=== PATIENT | male | born 1990 | race African-American/Black ===

== ENCOUNTER 2016-03-14 09:38 | Emergency (ER) | payer SELFPAY ==
--- NOTE | 2016-03-14 11:07 | REP ---
LEFT KNEE, FIVE VIEWS: HISTORY: Trauma. There is no acute fracture or dislocation. The joint spaces are normal in appearance. IMPRESSION: There is no acute fracture or dislocation. Signed by Ajit Neal MD 03/14/2016 11:25 A
--- NOTE | 2016-03-14 11:08 | EDDOCDS ---
Nurse's Notes [facility] Name: Cristóbal Alejandra Age: 25 yrs Sex: Male : 1990 Arrival Date: 03/14/2016 Time: 09:38 Bed PR Private MD: NO PRIMARY PHYSICIAN, . Diagnosis: Sprain of other specified parts of left knee-possible medial meniscal injury Presentation: 03/14 09:43 Presenting complaint: Patient states: Im here to get my knee and my wrist checked out. hs1 Injury to knee occurred yesterday while playing basketball patient jumped and landed wrong and he states knee gave out and he fell. Patient has lump on wrist that he says has been there for a week - no redness or warmth noted. Adult Sepsis Screening: The patient does not have new or worsening altered mentation. Patient's respiratory rate is less than 22. Systolic blood pressure is greater than 100. Patient has a qSOFA score of 0- Negative Sepsis Screen. Suicide/Homicide risk assessment- the patient denies having any suicidal and/or homicidal ideations and does not present with any other emotional, behavioral or mental health complaints. Status: Patient is not a career placement services counselor or dependent. Transition of care: patient was not received from another setting of care. 09:43 Acuity: LEON Level 4 hs1 09:43 Method Of Arrival: Walkin/Carried/Asstd hs1 Triage Assessment: 09:45 General: Appears in no apparent distress, Behavior is appropriate for age, cooperative. hs1 Pain: Location: left hand and left leg Pain currently is 7 out of 10 on a pain scale. HIV screening NA for this visit Offered previously. Respiratory: No deficits noted. Musculoskeletal: Range of motion limited in left knee. Historical: - Allergies: no known allergies; - Home Meds: 1. multivitamin Oral tab daily - PMHx: none; - PSHx: Tonsillectomy; Surgery to left chest to remove ''hardened tissue''.; - Social history: Smoking status: Patient uses tobacco products, current some day smoker. No barriers to communication noted, The patient speaks fluent Malian, Speaks appropriately for age. - Family history: Not pertinent. - : The pt / caregiver states he / she is not on anticoagulants. Home medication list is obtained from the patient. - Exposure Risk Screening:: None identified. Screenin:00 Screening information is obtained from the patient. Primary language is Malian. Fall mk4 risk: No risks identified. Assistance ADL's: requires no assistance with activities of daily living. Abuse/DV Screen: The patient / caregiver reports he/she is: not in a situation that causes fear, pain or injury. Nutritional screening: No deficits noted. Advance Directives: Currently, there is no health care proxy. There is no active DNR order. There is no living will. There is no Power of Hourly Shift Manager. Advance directive information has not previously been placed in an [facility] medical record. Further advance directive information is declined. home support is adequate. Assessment: 10:00 General: Appears in no apparent distress. Pain: Complains of pain in left knee and left mk4 hand. Awake, alert, oriented. Skin warm and dry. Moves all extremities. Respirations unlabored. No apparent distress. The patient / caregiver is instructed regarding the plan of care and ED course. Physical assessment to be completed by PA/UDAY. 10:50 Musculoskeletal: Circulation, motion, and sensation intact Capillary refill < 3 seconds mk4 in left fingers toes No deformity noted Swelling absent. Vital Signs: 09:41 BP 143 / 64; Pulse 66; Resp 18; Temp 96.0(O); Pulse Ox 100% on R/A; Weight 95.25 kg el (R); Height 6 ft. 0 in. (182.88 cm) (R); Pain 7/10; 09:41 Body Mass Index 28.48 (95.25 kg, 182.88 cm) [facility] Vitals: 09:41 Log In Time: March 14, 2016 at 09:39. [facility] ED Course: 09:41 Patient visited by Jennifer Mansfield PCA. elp 09:41 NO PRIMARY PHYSICIAN, . is Private Physician. elp 09:41 Patient moved to Waiting elp 09:41 Patient moved to Pre RCE elp 09:42 Patient visited by Jennifer Mansfield PCA. elp 09:45 Triage Initiated hs1 09:46 Patient moved to Triage 3 hs1 09:53 [facility] ar2 09:53 Moni Helton MD is Attending Physician. ar2 09:53 Patient visited by Davion Mohr PA-C. ar2 10:00 Patient has correct armband on for positive identification. mk4 10:08 Patient moved to TR3 [facility] 10:18 [facility] Payment Agreement was scanned into [employer] and attached to record. mm15 10:19 Patient moved to Radiology gg 10:48 Patient visited by Marlene Polanco, LEO. mk4 10:48 Patient moved to PR2 / 26 [facility] 10:50 No IV's were initiated during this patient's visit. No procedures done that require mk4 assistance. 10:52 Junior Taveras is Referral Physician. ar2 11:07 Galindo wrap to left knee. Patient has positive distal pulse, brisk capillary refill, and mk4 positive sensation after application. Order Results: There are currently no results for this order. Outcome: 10:00 The following High Risk Discharge criteria are identified: None. Condition: good mk4 Condition: stable. Discharge instructions given to patient. No special radiology studies were completed. 10:50 Discharge Assessment: patient administered narcotics - no. mk4 10:50 Property sent home with patient. mk4 10:54 Discharge ordered by Provider. ar2 11:07 Patient left the ED. mk4 Signatures: Princess Barksdale, PAN RECLAIM PROCESSOR PAN RECLAIM PROCESSOR [email or web address] Dangelo Castro Davion Mohr PA-C PA-C ar2 Maru Atkins, RN RN hs1 Sasha Rizo mm15 Jennifer Mansfield, PAN RECLAIM PROCESSOR PAN RECLAIM PROCESSOR Marlene Licea, RN RN mk4 MTDD
--- NOTE | 2016-03-14 11:08 | EDDOCDS ---
Physician Documentation [facility] Name: Cristóbal Alejandra Age: 25 yrs Sex: Male : 1990 Arrival Date: 03/14/2016 Time: 09:38 Bed PR Private MD: NO PRIMARY PHYSICIAN, . Disposition: 03/14/16 10:54 Discharged to Home/Self Care. Impression: Sprain of other specified parts of left knee - possible medial meniscal injury. - Condition is Stable. - Discharge Instructions: Elastic Bandage and RICE, Knee Sprain. - Prescriptions for Naprosyn 500 mg Oral Tablet - take 1 tablet by ORAL route 2 times per day take with food; 30 tablet. - Medication Reconciliation, Local Pharmacy Hours form. - Follow up: Junior Taveras; When: Call to arrange an appointment; Reason: Further diagnostic work-up, Recheck today's complaints. - Problem is new. - Symptoms are unchanged. - Notes: call for follow up appointment Historical: - Allergies: no known allergies; - Home Meds: 1. multivitamin Oral tab daily - PMHx: none; - PSHx: Tonsillectomy; Surgery to left chest to remove ''hardened tissue''.; - Social history: Smoking status: Patient uses tobacco products, current some day smoker. No barriers to communication noted, The patient speaks fluent Cape Verdean, Speaks appropriately for age. - Family history: Not pertinent. - : The pt / caregiver states he / she is not on anticoagulants. Home medication list is obtained from the patient. - Exposure Risk Screening:: None identified. Vital Signs: 03/14 09:41 BP 143 / 64; Pulse 66; Resp 18; Temp 96.0(O); Pulse Ox 100% on R/A; Weight 95.25 kg / elp 209.99 lbs (R); Height 6 ft. 0 in. (182.88 cm) (R); Pain 7/10; 09:41 Body Mass Index 28.48 (95.25 kg, 182.88 cm) elp MDM: 10:00 Galindo Wrap ordered. ar2 10:01 Knee, Complete Ordered. EDMS 10:17 Financial registration complete. mm15 10:18 [facility] Payment Agreement was scanned into [employer] and attached to record. mm15 Signatures: Dispatcher [employer] EDMS Davion Mohr, PA-C PAFadi ar2 Maru Atkins RN RN hs1 Sasha Rizo mm15 Marlene Polanco RN RN mk4 The chart was reviewed and I authenticate all verbal orders and agree with the evaluation and treatment provided.Attachments: 10:18 [facility] Payment Agreement mm15 MTDD
--- NOTE | 2016-03-16 12:08 | EDDOCDS ---
Physician Documentation [facility] Name: Cristóbal Alejandra Age: 25 yrs Sex: Male : 1990 Arrival Date: 03/14/2016 Time: 09:38 Bed PR Private MD: NO PRIMARY PHYSICIAN, . Disposition: 03/14/16 10:54 Discharged to Home/Self Care. Impression: Sprain of other specified parts of left knee - possible medial meniscal injury. - Condition is Stable. - Discharge Instructions: Elastic Bandage and RICE, Knee Sprain. - Prescriptions for Naprosyn 500 mg Oral Tablet - take 1 tablet by ORAL route 2 times per day take with food; 30 tablet. - Medication Reconciliation, Local Pharmacy Hours form. - Follow up: Junior Taveras; When: Call to arrange an appointment; Reason: Further diagnostic work-up, Recheck today's complaints. - Problem is new. - Symptoms are unchanged. - Notes: call for follow up appointment Historical: - Allergies: no known allergies; - Home Meds: 1. multivitamin Oral tab daily - PMHx: none; - PSHx: Tonsillectomy; Surgery to left chest to remove ''hardened tissue''.; - Social history: Smoking status: Patient uses tobacco products, current some day smoker. No barriers to communication noted, The patient speaks fluent Albanian, Speaks appropriately for age. - Family history: Not pertinent. - : The pt / caregiver states he / she is not on anticoagulants. Home medication list is obtained from the patient. - Exposure Risk Screening:: None identified. Vital Signs: 03/14 09:41 BP 143 / 64; Pulse 66; Resp 18; Temp 96.0(O); Pulse Ox 100% on R/A; Weight 95.25 kg / elp 209.99 lbs (R); Height 6 ft. 0 in. (182.88 cm) (R); Pain 7/10; 09:41 Body Mass Index 28.48 (95.25 kg, 182.88 cm) elp MDM: 10:00 Galindo Wrap ordered. ar2 10:01 Knee, Complete Ordered. EDMS 10:17 Financial registration complete. mm15 10:18 [facility] Payment Agreement was scanned into [employer] and attached to record. mm15 15:24 T-Sheet-- Draft Copy was scanned into [employer] and attached to record. gb 15:24 Radiology Report was scanned into [employer] and attached to record. gb Signatures: Dispatcher [employer] EDMS Chey Murray, Reg Reg gb Davion Mohr, MOLLY PAFadi ar2 Maru Atkins RN RN hs1 Sasha Rizo mm15 Marlene Polanco RN RN mk4 The chart was reviewed and I authenticate all verbal orders and agree with the evaluation and treatment provided.Attachments: 10:18 [facility] Payment Agreement mm15 15:24 T-Sheet-- Draft Copy gb Chart Complete MTDD
--- NOTE | 2016-03-16 12:08 | EDDOCDS ---
Physician Documentation [facility] Name: Cristóbal Alejandra Age: 25 yrs Sex: Male : 1990 Arrival Date: 03/14/2016 Time: 09:38 Bed PR Private MD: NO PRIMARY PHYSICIAN, . Disposition: 03/14/16 10:54 Discharged to Home/Self Care. Impression: Sprain of other specified parts of left knee - possible medial meniscal injury. - Condition is Stable. - Discharge Instructions: Elastic Bandage and RICE, Knee Sprain. - Prescriptions for Naprosyn 500 mg Oral Tablet - take 1 tablet by ORAL route 2 times per day take with food; 30 tablet. - Medication Reconciliation, Local Pharmacy Hours form. - Follow up: Junior Taveras; When: Call to arrange an appointment; Reason: Further diagnostic work-up, Recheck today's complaints. - Problem is new. - Symptoms are unchanged. - Notes: call for follow up appointment Historical: - Allergies: no known allergies; - Home Meds: 1. multivitamin Oral tab daily - PMHx: none; - PSHx: Tonsillectomy; Surgery to left chest to remove ''hardened tissue''.; - Social history: Smoking status: Patient uses tobacco products, current some day smoker. No barriers to communication noted, The patient speaks fluent Lebanese, Speaks appropriately for age. - Family history: Not pertinent. - : The pt / caregiver states he / she is not on anticoagulants. Home medication list is obtained from the patient. - Exposure Risk Screening:: None identified. Vital Signs: 03/14 09:41 BP 143 / 64; Pulse 66; Resp 18; Temp 96.0(O); Pulse Ox 100% on R/A; Weight 95.25 kg / elp 209.99 lbs (R); Height 6 ft. 0 in. (182.88 cm) (R); Pain 7/10; 09:41 Body Mass Index 28.48 (95.25 kg, 182.88 cm) elp MDM: 10:00 Galindo Wrap ordered. ar2 10:01 Knee, Complete Ordered. EDMS 10:17 Financial registration complete. mm15 10:18 [facility] Payment Agreement was scanned into [employer] and attached to record. mm15 15:24 T-Sheet-- Draft Copy was scanned into [employer] and attached to record. gb 15:24 Radiology Report was scanned into [employer] and attached to record. gb Signatures: Dispatcher [employer] EDMS Chey Murray, Reg Reg gb Davion Mohr, MOLLY PAFadi ar2 Maru Atkins RN RN hs1 Sasha Rizo mm15 Marlene Polanco RN RN mk4 The chart was reviewed and I authenticate all verbal orders and agree with the evaluation and treatment provided.Attachments: 10:18 [facility] Payment Agreement mm15 15:24 T-Sheet-- Draft Copy gb Chart Complete MTDD
--- NOTE | 2016-03-16 12:08 | EDDOCDS ---
Nurse's Notes [facility] Name: Cristóbal Alejandra Age: 25 yrs Sex: Male : 1990 Arrival Date: 03/14/2016 Time: 09:38 Bed PR Private MD: NO PRIMARY PHYSICIAN, . Diagnosis: Sprain of other specified parts of left knee-possible medial meniscal injury Presentation: 03/14 09:43 Presenting complaint: Patient states: Im here to get my knee and my wrist checked out. hs1 Injury to knee occurred yesterday while playing basketball patient jumped and landed wrong and he states knee gave out and he fell. Patient has lump on wrist that he says has been there for a week - no redness or warmth noted. Adult Sepsis Screening: The patient does not have new or worsening altered mentation. Patient's respiratory rate is less than 22. Systolic blood pressure is greater than 100. Patient has a qSOFA score of 0- Negative Sepsis Screen. Suicide/Homicide risk assessment- the patient denies having any suicidal and/or homicidal ideations and does not present with any other emotional, behavioral or mental health complaints. Status: Patient is not a aircraft servicer or dependent. Transition of care: patient was not received from another setting of care. 09:43 Acuity: LEON Level 4 hs1 09:43 Method Of Arrival: Walkin/Carried/Asstd hs1 Triage Assessment: 09:45 General: Appears in no apparent distress, Behavior is appropriate for age, cooperative. hs1 Pain: Location: left hand and left leg Pain currently is 7 out of 10 on a pain scale. HIV screening NA for this visit Offered previously. Respiratory: No deficits noted. Musculoskeletal: Range of motion limited in left knee. Historical: - Allergies: no known allergies; - Home Meds: 1. multivitamin Oral tab daily - PMHx: none; - PSHx: Tonsillectomy; Surgery to left chest to remove ''hardened tissue''.; - Social history: Smoking status: Patient uses tobacco products, current some day smoker. No barriers to communication noted, The patient speaks fluent Prydeinig, Speaks appropriately for age. - Family history: Not pertinent. - : The pt / caregiver states he / she is not on anticoagulants. Home medication list is obtained from the patient. - Exposure Risk Screening:: None identified. Screenin:00 Screening information is obtained from the patient. Primary language is Prydeinig. Fall mk4 risk: No risks identified. Assistance ADL's: requires no assistance with activities of daily living. Abuse/DV Screen: The patient / caregiver reports he/she is: not in a situation that causes fear, pain or injury. Nutritional screening: No deficits noted. Advance Directives: Currently, there is no health care proxy. There is no active DNR order. There is no living will. There is no Power of Skeins Yarn Examiner. Advance directive information has not previously been placed in an [facility] medical record. Further advance directive information is declined. home support is adequate. Assessment: 10:00 General: Appears in no apparent distress. Pain: Complains of pain in left knee and left mk4 hand. Awake, alert, oriented. Skin warm and dry. Moves all extremities. Respirations unlabored. No apparent distress. The patient / caregiver is instructed regarding the plan of care and ED course. Physical assessment to be completed by PA/UDAY. 10:50 Musculoskeletal: Circulation, motion, and sensation intact Capillary refill < 3 seconds mk4 in left fingers toes No deformity noted Swelling absent. Vital Signs: 09:41 BP 143 / 64; Pulse 66; Resp 18; Temp 96.0(O); Pulse Ox 100% on R/A; Weight 95.25 kg el (R); Height 6 ft. 0 in. (182.88 cm) (R); Pain 7/10; 09:41 Body Mass Index 28.48 (95.25 kg, 182.88 cm) [facility] Vitals: 09:41 Log In Time: March 14, 2016 at 09:39. [facility] ED Course: 09:41 Patient visited by Jennifer Mansfield PCA. elp 09:41 NO PRIMARY PHYSICIAN, . is Private Physician. elp 09:41 Patient moved to Waiting elp 09:41 Patient moved to Pre RCE elp 09:42 Patient visited by Jennifer Mansfield PCA. elp 09:45 Triage Initiated hs1 09:46 Patient moved to Triage 3 hs1 09:53 Davion Mohr [facility]-C [facility] ar2 09:53 Moni Helton MD is Attending Physician. ar2 09:53 Patient visited by Davion Mohr PA-C. ar2 10:00 Patient has correct armband on for positive identification. mk4 10:08 Patient moved to TR3 jam1 10:18 [facility] Payment Agreement was scanned into [employer] and attached to record. mm15 10:19 Patient moved to Radiology gg 10:48 Patient visited by Marlene Polanco, LEO. mk4 10:48 Patient moved to PR2 / 26 jam1 10:50 No IV's were initiated during this patient's visit. No procedures done that require mk4 assistance. 10:52 Junior Taveras is Referral Physician. ar2 11:07 Galindo wrap to left knee. Patient has positive distal pulse, brisk capillary refill, and mk4 positive sensation after application. 11:42 Knee, Complete Returned. EDMS 15:24 T-Sheet-- Draft Copy was scanned into [employer] and attached to record. gb 15:24 Radiology Report was scanned into [employer] and attached to record. gb Order Results: Radiology Order: Knee, Complete Test: Knee, Complete REASON FOR EXAMINATION: trauma, twist, anterior/medial pain; LEFT KNEE, FIVE VIEWS:; ; HISTORY: Trauma.; ; There is no acute fracture or dislocation. The joint spaces are normal in; appearance.; ; IMPRESSION:; ; There is no acute fracture or dislocation.; ; ; Signed by; Ajit Neal MD 03/14/2016 11:25 A; Outcome: 10:00 The following High Risk Discharge criteria are identified: None. Condition: good mk4 Condition: stable. Discharge instructions given to patient. No special radiology studies were completed. 10:50 Discharge Assessment: patient administered narcotics - no. mk4 10:50 Property sent home with patient. mk4 10:54 Discharge ordered by Provider. ar2 11:07 Patient left the ED. mk4 Signatures: Dispatcher [employer] EDMS Princess Barksdale, OXIDATION OPERATOR OXIDATION OPERATOR jam1 Chey Murray, Reg Reg Dangelo Dimas gg Davion Mohr PA-C PA-C ar2 aMru Atkins, RN RN hs1 Sasha Rizo mm15 Jennifer Mansfield, OXIDATION OPERATOR OXIDATION OPERATOR elp Marlene Polanco, RN RN mk4 Chart Complete MTDD
== END 2016-03-14 11:07 | disposition home or self-care (01) ==
LOC: M ED 09:38
DX: S83.92XA Sprain of unspecified site of left knee, initial encounter (principal); W18.39XA Other fall on same level, initial encounter; Y92.39 Other specified sports and athletic area as the place of occurrence of the external cause; Y93.67 Activity, basketball; Y99.8 Other external cause status; F17.210 Nicotine dependence, cigarettes, uncomplicated

== ENCOUNTER 2016-06-12 12:12 | Emergency (ER) | payer SELFPAY ==
[~2016-06-12] VITALS: Ht 185.4 cm; Wt 86.2 kg
[2016-06-12 12:13] VITALS: BP 137/74
== END 2016-06-12 13:27 | disposition home or self-care (01) ==
LOC: M ED 12:47
DX: M54.42 Lumbago with sciatica, left side (principal)

== ENCOUNTER 2016-08-18 11:43 | Emergency (ER) | payer SELFPAY ==
[~2016-08-18] VITALS: Ht 182.9 cm; Wt 90.9 kg
[2016-08-18 11:44] VITALS: BP 138/89
[2016-08-18] MEDS ORDERED: CYCL10TA PO (12:15)
[2016-08-18] MEDS ORDERED: NAPR500T PO (12:15)
== END 2016-08-18 12:26 | disposition home or self-care (01) ==
LOC: M ED 11:43
DX: M54.5 Low back pain (principal); G89.29 Other chronic pain

== ENCOUNTER 2017-01-01 11:15 | Emergency (ER) | payer SELFPAY ==
[~2017-01-01] VITALS: Ht 185.4 cm; Wt 86.4 kg
[~2017-01-01 11:15] MED LIST: CYCL10TA PO; NAPR500T PO
[2017-01-01 11:26] VITALS: BP 129/79
[2017-01-01] MEDS ORDERED: IBUP-1022 PO (11:30)
--- NOTE | 2017-01-01 12:00 | REP ---
Clinical: Trauma. Technique: AP, lateral, bilateral oblique views left hand . Findings: The osseous structures and joint spaces are intact and normal. There is no evidence for acute fracture or dislocation. Surrounding soft tissues are unremarkable. No subcutaneous emphysema or radiodense foreign body. Impression: Normal left hand series. No acute fracture or dislocation. Signed by Austin Maharaj MD 01/01/2017 11:52 A
== END 2017-01-01 12:54 | disposition home or self-care (01) ==
LOC: M ED 11:15
DX: S63.642A Sprain of metacarpophalangeal joint of left thumb, initial encounter (principal); X50.1XXA Overexertion from prolonged static or awkward postures, initial encounter; Y92.830 Public park as the place of occurrence of the external cause; Y93.67 Activity, basketball; Y99.9 Unspecified external cause status

== ENCOUNTER 2017-04-22 13:39 | Emergency (ER) | payer SELFPAY ==
[2017-04-22] MEDS: diphenhydrAMINE 50 MG CAP PO (15:36)
[2017-04-22] MEDS: METOCLOPRAMIDE 10 MG TAB PO (15:36)
[2017-04-22] MEDS: NAPROXEN 250 MG TAB PO (15:37)
[2017-04-22 15:53] LABS: BASO # 0.1 10^3/uL (0.0-0.2); BASO % 0.5 % (0.0-1.0); EOS # 0.1 10^3/uL (0.0-0.50); EOS % 1.3 % (0.0-3.0); HEMATOCRIT 42.5 % (42.0-52.0); HEMOGLOBIN 14.7 g/dl (14.0-18.0); IMMATURE GRANULOCYTE % 0.3 % (0-3.0); LYMPH # 3.3 10^3/uL (1.5-6.5); LYMPH % 32.8 % (24.0-44.0); MEAN CORPUSCULAR HEMOGLOBIN 28.4 pg (27.0-33.0); MEAN CORPUSCULAR HGB CONC 34.6 g/dl (32.0-36.5); MONO # 0.7 10^3/uL (0.0-0.8); MONO % 7.3 % (0.0-5.0); NEUTROPHILS # 5.9 10^3/uL (1.8-7.7); NEUTROPHILS % 57.8 % (36.0-66.0); PLATELET COUNT, AUTOMATED 238 10^3/uL (150-450); RED BLOOD COUNT 5.18 10^6/uL (4.30-6.10); RED CELL DISTRIBUTION WIDTH 13.2 % (11.5-14.5); WHITE BLOOD COUNT 10.1 10^3/uL (4.0-10.0)
[2017-04-22 16:11] LABS: ANION GAP 6 MEQ/L (8-16); BLOOD UREA NITROGEN 13 MG/DL (7-18); C REACTIVE PROTEIN QUANTITATIV < 0.30 MG/DL (0.00-0.30); CARBON DIOXIDE LEVEL 28 MEQ/L (21-32); CHLORIDE LEVEL 104 MEQ/L (98-107); CPK CREATINE PHOSPHOKINASE 209 U/L (39-308); CREATININE FOR GFR 1.18 MG/DL (0.70-1.30); GLOMERULAR FILTRATION RATE > 60.0 (>60); GLUCOSE, FASTING 81 MG/DL (70-100); POTASSIUM SERUM 3.8 MEQ/L (3.5-5.1); SODIUM LEVEL 138 MEQ/L (136-145); TROPONIN I < 0.02 NG/ML (< 0.10)
[2017-04-22 16:12] LABS: ERYTHROCYTE SEDIMENTATION RATE 3 mm/hr (0-15)
[2017-04-22 16:15] LABS: MB/CK RELATIVE INDEX 0.47 (< OR =4)
== END 2017-04-22 16:58 | disposition home or self-care (01) ==
LOC: M ED 13:39
DX: R07.89 Other chest pain (principal); R00.1 Bradycardia, unspecified; Z72.0 Tobacco use
CPT/HCPCS: 71046

== ENCOUNTER 2017-06-03 16:01 | Emergency (ER) | payer SELFPAY ==
[2017-06-03] MEDS: METHOCARBAMOL 750 MG TAB PO (16:25)
[2017-06-03] MEDS: PERCOCET 5MG/325MG TAB PO (16:30)
== END 2017-06-03 17:06 | disposition home or self-care (01) ==
LOC: M ED 16:01
DX: S39.012A Strain of muscle, fascia and tendon of lower back, initial encounter (principal); X50.1XXA Overexertion from prolonged static or awkward postures, initial encounter; Y92.89 Other specified places as the place of occurrence of the external cause
CPT/HCPCS: 99282

== ENCOUNTER 2017-07-23 12:14 | Emergency (ER) | payer SELFPAY ==
[2017-07-23 14:06] LABS: BASO % 0.2 % (0.0-1.0); EOS # 0.1 10^3/uL (0.0-0.50); EOS % 1.5 % (0.0-3.0); HEMATOCRIT 47.1 % (42.0-52.0); HEMOGLOBIN 15.7 g/dl (13.5-17.5); IMMATURE GRANULOCYTE % 0.2 % (0-3.0); LYMPH # 1.1 10^3/uL (1.5-6.5); MEAN CORPUSCULAR HEMOGLOBIN 28.1 pg (27.0-33.0); MEAN CORPUSCULAR HGB CONC 33.3 g/dl (32.0-36.5); MEAN CORPUSCULAR VOLUME 84.3 fl (80.0-96.0); MONO # 0.4 10^3/uL (0.0-0.8); NEUTROPHILS # 7.1 10^3/uL (1.8-7.7); NEUTROPHILS % 81.1 % (36.0-66.0); PLATELET COUNT, AUTOMATED 234 10^3/uL (150-450); RED BLOOD COUNT 5.59 10^6/uL (4.30-6.10); RED CELL DISTRIBUTION WIDTH 13.4 % (11.5-14.5); WHITE BLOOD COUNT 8.8 10^3/uL (4.0-10.0)
[2017-07-23 14:31] LABS: ALBUMIN 3.9 GM/DL (3.2-5.2); ALBUMIN/GLOBULIN RATIO 1.08 (1.00-1.93); ALKALINE PHOSPHATASE 73 U/L (45-117); ALT/SGPT 47 U/L (12-78); ANION GAP 8 MEQ/L (8-16); AST/SGOT 18 U/L (7-37); BILIRUBIN,DIRECT 0.1 MG/DL (0.0-0.2); BILIRUBIN,TOTAL 0.6 MG/DL (0.2-1.0); BLOOD UREA NITROGEN 12 MG/DL (7-18); CALCIUM LEVEL 8.9 MG/DL (8.5-10.1); CARBON DIOXIDE LEVEL 29 MEQ/L (21-32); CHLORIDE LEVEL 102 MEQ/L (98-107); CREATININE FOR GFR 1.19 MG/DL (0.70-1.30); GLOMERULAR FILTRATION RATE > 60.0 (>60); GLUCOSE, FASTING 92 MG/DL (70-100); LIPASE 143 U/L (73-393); POTASSIUM SERUM 4.4 MEQ/L (3.5-5.1); SODIUM LEVEL 139 MEQ/L (136-145); TOTAL PROTEIN 7.5 GM/DL (6.4-8.2)
[2017-07-23] MEDS: ONDANSETRON 4 MG ORAL DISINTEGRATING TAB (Q0162 PER 1MG) PO (14:53)
== END 2017-07-23 15:43 | disposition home or self-care (01) ==
LOC: M ED 12:14
DX: K52.9 Noninfective gastroenteritis and colitis, unspecified (principal)
CPT/HCPCS: Q0162

== ENCOUNTER 2018-01-16 08:52 | Emergency (ER) | payer SELFPAY | END 2018-01-16 09:40 | disposition home or self-care (01) | LOC: M ED 08:52 | DX: M62.838 Other muscle spasm (principal) | CPT/HCPCS: 99282 ==

== ENCOUNTER 2018-01-17 20:36 | Emergency (ER) | payer SELFPAY ==
[2018-01-17] MEDS: NORCO 5/325MG TABLET (BULK FOR ED) PO (21:27)
== END 2018-01-17 22:08 | disposition home or self-care (01) ==
LOC: M ED 20:36
DX: S39.012A Strain of muscle, fascia and tendon of lower back, initial encounter (principal); X58.XXXA Exposure to other specified factors, initial encounter; Y92.099 Unspecified place in other non-institutional residence as the place of occurrence of the external cause; Y93.9 Activity, unspecified; Y99.9 Unspecified external cause status; G89.29 Other chronic pain; M54.9 Dorsalgia, unspecified
CPT/HCPCS: 99282

== ENCOUNTER 2018-04-28 18:54 | Emergency (ER) | payer SELFPAY ==
[~2018-04-28] VITALS: Ht 182.9 cm; Wt 90.0 kg
[~2018-04-28 18:54] MED LIST changes: +IBUP-1022 PO; +IBUP80TA PO; +NAPR-837 PO; +NAPR-885 PO; -NAPR500T PO; +REGL10TA6 PO; +ROBA500T PO; +ZOFR4TAB14 PO
--- NOTE | 2018-04-28 22:11 | REPVR ---
EXAM: US Pelvis Limited, Male EXAM DATE/TIME: 04/28/2018 8:33 PM CLINICAL HISTORY: 27 years old, male; Pain; Pelvic pain; Additional info: ? Inguinal hernia; Left inguinal pain TECHNIQUE: Imaging protocol: Real-time pelvic ultrasound with image documentation. COMPARISON: CR Spine. Lumbosacral, complete 09/29/2015 9:47 AM FINDINGS: Soft tissues: Grossly unremarkable. No inguinal hernia identified. No fluid collection or soft tissue mass. IMPRESSION: No hernia identified. Electronically signed by: Morgan Hansen On 04/28/2018 22:11:15 PM
[2018-04-28 22:15] VITALS: BP 115/70
== END 2018-04-28 22:16 | disposition home or self-care (01) ==
LOC: M ED 18:54
DX: S39.013A Strain of muscle, fascia and tendon of pelvis, initial encounter (principal); X58.XXXA Exposure to other specified factors, initial encounter; Y92.9 Unspecified place or not applicable; Y93.9 Activity, unspecified; Y99.9 Unspecified external cause status

== ENCOUNTER 2018-06-13 18:58 | Emergency (ER) | payer OTHER, SELFPAY ==
[~2018-06-13] VITALS: Ht 185.4 cm; Wt 84.8 kg
[2018-06-13] MEDS ORDERED: FLUORESCEIN OPHTH 1 MG STRIP OS ONE (19:30)
[2018-06-13] MEDS ORDERED: ERYT1OIN26 OS (19:34)
[2018-06-13 19:50] VITALS: BP 115/66
== END 2018-06-13 19:52 | disposition home or self-care (01) ==
LOC: M ED 18:58
DX: H10.212 Acute toxic conjunctivitis, left eye (principal); S05.92XA Unspecified injury of left eye and orbit, initial encounter; X10.2XXA Contact with fats and cooking oils, initial encounter; Y92.89 Other specified places as the place of occurrence of the external cause; Y99.0 Civilian activity done for income or pay; F17.210 Nicotine dependence, cigarettes, uncomplicated

== ENCOUNTER → 2018-08-13 | Outpatient (REF) | payer MEDICAID ==
[~2018-08-13] MED LIST changes: +ERYT1OIN26 OS
[2018-08-13 21:45] LABS: APPEARANCE, URINE CLEAR (CLEAR); BACTERIA, URINE AUTO NEGATIVE (NEGATIVE); BILIRUBIN, URINE AUTO NEGATIVE (NEGATIVE); BLOOD, URINE BLOOD NEGATIVE (NEGATIVE); COLOR, URINE YELLOW (YELLOW); GLUCOSE, URINE (UA) AUTO NEGATIVE (NEGATIVE); KETONE, URINE AUTO NEGATIVE (NEGATIVE); LEUKOCYTE ESTERASE, URINE AUTO NEGATIVE (NEGATIVE); MUCUS, URINE SMALL (NEGATIVE); NITRITE, URINE AUTO NEGATIVE (NEGATIVE); PROTEIN, URINE AUTO NEGATIVE (NEGATIVE); RBC, URINE AUTO 1 /HPF (0-3); SPECIFIC GRAVITY URINE AUTO 1.026 (1.002-1.035); SQUAMOUS EPITHELIAL CELL UR AU 0 /HPF (0-6); UROBILINOGEN, URINE AUTO 0.2 mg/dL (0.0-2.0); WBC, URINE AUTO 1 /HPF (0-3)
== END ==
LOC: M LAB REF 09:43
PROVIDERS: ATTEND Physician Assistant Medical
DX: N39.0 Urinary tract infection, site not specified (principal)

== ENCOUNTER 2018-09-03 14:30 | Outpatient (RCR) | payer MEDICAID, OTHER, SELFPAY | END 2018-09-04 | LOC: M PT 14:30 | PROVIDERS: ATTEND Orthopaedic Surgery | DX: Z47.89 Encounter for other orthopedic aftercare (principal); M54.5 Low back pain; M76.51 Patellar tendinitis, right knee; M76.52 Patellar tendinitis, left knee ==

== ENCOUNTER 2018-09-19 14:30 | Outpatient (RCR) | payer MEDICAID, OTHER | END 2018-10-05 | LOC: M PT 14:30 | PROVIDERS: ATTEND Orthopaedic Surgery | DX: Z51.89 Encounter for other specified aftercare (principal); M54.5 Low back pain; M76.51 Patellar tendinitis, right knee; M76.52 Patellar tendinitis, left knee ==

== ENCOUNTER 2018-10-18 12:21 | Emergency (ER) | payer OTHER ==
[~2018-10-18] VITALS: Ht 185.4 cm; Wt 87.1 kg
[2018-10-18 12:22] VITALS: BP 135/68
[2018-10-18] MEDS ORDERED: MUCI600T31 PO (12:48)
[2018-10-18] MEDS ORDERED: BENZ200C70 PO (12:48)
[2018-10-18] MEDS ORDERED: AFRI0.058 (12:48)
== END 2018-10-18 12:57 | disposition home or self-care (01) ==
LOC: M ED 12:21
DX: J06.9 Acute upper respiratory infection, unspecified (principal); F17.200 Nicotine dependence, unspecified, uncomplicated

== ENCOUNTER 2018-11-04 23:16 | Emergency (ER) | payer OTHER ==
[~2018-11-04] VITALS: Ht 182.9 cm; Wt 86.4 kg
[~2018-11-04 23:16] MED LIST changes: +AFRI0.058; +BENZ200C70 PO; +MUCI600T31 PO
[2018-11-05] MEDS ORDERED: methylPREDNISolone INJ 125 MG/2 ML VIAL (J2930) IM ONE (01:00)
[2018-11-05] MEDS ORDERED: PRED20TA PO (01:04)
[2018-11-05 01:35] VITALS: BP 128/68
--- NOTE | 2018-11-05 08:11 | REP ---
Chest x-ray: Two views. History: Dyspnea . Comparison study: April 22, 2017 . Findings: The lungs are well inflated and free of infiltrate. The pleural angles are sharp. The heart size is normal. Pulmonary vasculature is not increased. No significant bony abnormality is seen. Impression: Negative chest x-ray. Electronically Signed by Daniel Knight MD 11/05/2018 08:03 A
== END 2018-11-05 01:36 | disposition home or self-care (01) ==
LOC: M ED 23:16
DX: B34.9 Viral infection, unspecified (principal); J40 Bronchitis, not specified as acute or chronic; F17.200 Nicotine dependence, unspecified, uncomplicated
CPT/HCPCS: 71046; 96372; 99284; J2930

== ENCOUNTER 2019-02-07 17:44 | Emergency (ER) | payer OTHER, SELFPAY ==
[~2019-02-07] VITALS: Ht 182.9 cm; Wt 92.1 kg
[~2019-02-07 17:44] MED LIST changes: +PRED20TA PO
[2019-02-07 20:58] LABS: BASO # 0.1 10^3/uL (0.0-0.2); BASO % 0.6 % (0.0-1.0); EOS # 0.3 10^3/uL (0.0-0.5); EOS % 4.1 % (0.0-3.0); HEMATOCRIT 44.9 % (42.0-52.0); HEMOGLOBIN 14.5 g/dl (13.5-17.5); LYMPH # 3.7 10^3/uL (1.5-5.0); LYMPH % 46.2 % (24.0-44.0); MEAN CORPUSCULAR HEMOGLOBIN 27.8 pg (27.0-33.0); MEAN CORPUSCULAR HGB CONC 32.3 g/dl (32.0-36.5); MONO # 0.6 10^3/uL (0.0-0.8); MONO % 7.8 % (0.0-5.0); NEUTROPHILS # 3.2 10^3/uL (1.5-8.5); PLATELET COUNT, AUTOMATED 226 10^3/uL (150-450); RED BLOOD COUNT 5.22 10^6/uL (4.30-6.10); WHITE BLOOD COUNT 7.9 10^3/uL (4.0-10.0)
[2019-02-07 21:11] LABS: BLOOD UREA NITROGEN 11 MG/DL (7-18); CALCIUM LEVEL 8.4 MG/DL (8.5-10.1); CARBON DIOXIDE LEVEL 29 MEQ/L (21-32); CHLORIDE LEVEL 106 MEQ/L (98-107); CK-MB VALUE MASS < 1.0 NG/ML (<3.6); CPK CREATINE PHOSPHOKINASE 134 U/L (39-308); CREATININE FOR GFR 1.15 MG/DL (0.70-1.30); GLOMERULAR FILTRATION RATE > 60.0 (>60); GLUCOSE, FASTING 93 MG/DL (70-100); MB/CK RELATIVE INDEX 0.75 (< OR =4); POTASSIUM SERUM 3.9 MEQ/L (3.5-5.1); SODIUM LEVEL 141 MEQ/L (136-145); TROPONIN I < 0.02 NG/ML (< 0.10)
[2019-02-07] MEDS ORDERED: PANTOPRAZOLE 40MG INJ (PROTONIX) (C9113) IV ONE (21:30)
[2019-02-07] MEDS ORDERED: SUCRALFATE SUSP 1GM/10ML UD PO ONE (23:00)
[2019-02-07 23:12] VITALS: BP 118/68
[2019-02-07] MEDS ORDERED: SUCR1ORA PO (23:20)
[2019-02-07] MEDS ORDERED: PANT40TA3 PO (23:20)
--- NOTE | 2019-02-08 08:49 | REP ---
Chest x-ray: Two views. History: Left-sided chest pain radiating into the left arm . Comparison study: November 05, 2018 . Findings: The lungs are well inflated and free of infiltrate. The pleural angles are sharp. The heart size is normal. Pulmonary vasculature is not increased. No significant bony abnormality is seen. Impression: Negative chest x-ray. Electronically Signed by Daniel Knight MD 02/08/2019 08:41 A
--- NOTE | 2019-02-09 05:44 | ECGEPIP ---
[facility] - ED Test Date: 2019-02-07 Pat Name: KAVEH EDGE Department: Room: - Gender: Male Rn Perinatal: mehran : 1990 Requested By: Nohemi MACHUCA Order Number: [id number] Reading MD: Adonay Sawyer Measurements Intervals [place] Rate: 44 P: 34 FL: 141 QRS: 73 QRSD: 110 T: 46 QT: 433 QTc: 372 Interpretive Statements SINUS BRADYCARDIA SIMILAR TO 04/22/14 Electronically Signed on 02-09-2019 5:44:45 EST by Adonay Sawyer
== END 2019-02-07 23:32 | disposition home or self-care (01) ==
LOC: M ED 17:44
DX: K21.0 Gastro-esophageal reflux disease with esophagitis (principal); F17.210 Nicotine dependence, cigarettes, uncomplicated
CPT/HCPCS: 71046; 80048; 82550; 82553; 84484; 85025; 93005; 96374; 99284; C9113

== ENCOUNTER 2019-09-06 11:10 | Emergency (ER) | payer SELFPAY ==
[~2019-09-06 11:10] MED LIST changes: +CYCL-707 PO; -CYCL10TA PO; -ERYT1OIN26 OS; +ERYT5OIN25 OS; +PANT40TA29 PO; +SUCR1ORA PO
[2019-10-12 21:36] LABS: HEMATOCRIT 45.1 % (42.0-52.0); HEMOGLOBIN 14.9 g/dl (13.5-17.5); MEAN CORPUSCULAR HEMOGLOBIN 27.8 pg (27.0-33.0); MEAN CORPUSCULAR VOLUME 84.1 fl (80.0-96.0); PLATELET COUNT, AUTOMATED 235 10^3/uL (150-450); RED BLOOD COUNT 5.36 10^6/uL (4.30-6.10); WHITE BLOOD COUNT 7.4 10^3/uL (4.0-10.0)
--- NOTE | 2019-10-23 11:35 | ECGEPIP ---
SINUS RHYTHM WITH SINUS ARRHYTHMIA MODERATE INTRAVENTRICULAR CONDUCTION DELAY BORDERLINE ECG NO OLD AVAILABLE SEE SCANNED DOWNTIME REPORT MTDD
[2019-11-16 14:13] LABS: AMPHETAMINES LEVEL URINE NEGATIVE (NEGATIVE); BARBITURATES URINE NEGATIVE (NEGATIVE); BENZODIAZEPINES URINE NEGATIVE (NEGATIVE); CANNABINOIDS URINE NEGATIVE (NEGATIVE); COCAINE METABOLITE URINE NEGATIVE (NEGATIVE); METHADONE URINE NEGATIVE (NEGATIVE); OPIATES URINE NEGATIVE (NEGATIVE); PHENCYCLIDINE URINE NEGATIVE (NEGATIVE)
[2019-11-16 14:15] LABS: ALT/SGPT 51 U/L (12-78); BILIRUBIN,TOTAL 0.5 MG/DL (0.2-1.0); BLOOD UREA NITROGEN 12 MG/DL (7-18); CALCIUM LEVEL 8.8 MG/DL (8.5-10.1); CARBON DIOXIDE LEVEL 28 MEQ/L (21-32); CHLORIDE LEVEL 107 MEQ/L (98-107); CK-MB VALUE MASS < 1.0 NG/ML (<3.6); CPK CREATINE PHOSPHOKINASE 146 U/L (39-308); CREATININE FOR GFR 1.33 MG/DL (0.70-1.30); GLOMERULAR FILTRATION RATE > 60.0 (>60); GLUCOSE, FASTING 99 MG/DL (70-100); MAGNESIUM LEVEL 1.9 MG/DL (1.8-2.4); MB/CK RELATIVE INDEX 0.68 (< OR =4); POTASSIUM SERUM 3.5 MEQ/L (3.5-5.1); SODIUM LEVEL 140 MEQ/L (136-145); TOTAL PROTEIN 7.2 GM/DL (6.4-8.2); TROPONIN I < 0.02 NG/ML (< 0.10)
== END 2019-09-06 14:01 | disposition home or self-care (01) ==
LOC: M ED 11:10
DX: R00.2 Palpitations (principal); F17.210 Nicotine dependence, cigarettes, uncomplicated

== ENCOUNTER → 2019-09-09 00:32 | Emergency (ER) | payer SELFPAY ==
[~2019-09-09 00:32] MED LIST changes: +ESCI10TA2 PO; +HYDR-3363; +HYDR-643 PO; +LORA1TAB4 PO
== END | disposition home or self-care (01) ==
LOC: M ED 00:32
DX: Z53.21 Procedure and treatment not carried out due to patient leaving prior to being seen by health care provider (principal)

== ENCOUNTER 2019-09-30 01:52 | Emergency (ER) | payer SELFPAY ==
[~2019-09-30] VITALS: Ht 182.9 cm; Wt 101.4 kg
[~2019-09-30 01:52] MED LIST changes: -ESCI10TA2 PO; -HYDR-3363; -HYDR-643 PO; -LORA1TAB4 PO
[2019-09-30 01:53] VITALS: BP 139/96
[2019-09-30] MEDS ORDERED: HYDR-643 PO (02:02)
[2019-09-30] MEDS ORDERED: ESCI10TA2 PO (02:02)
[2019-09-30] MEDS ORDERED: LORA1TAB4 PO (02:02)
[2019-09-30] MEDS ORDERED: KETOROLAC 30 MG/ML 1ML VIAL IV ONE (06:00)
[2019-09-30 06:34] LABS: BASO % 0.4 % (0.0-1.0); EOS # 0.3 10^3/uL (0.0-0.5); EOS % 3.2 % (0.0-3.0); HEMATOCRIT 43.9 % (42.0-52.0); HEMOGLOBIN 15.1 g/dl (13.5-17.5); LYMPH # 3.4 10^3/uL (1.5-5.0); LYMPH % 41.5 % (24.0-44.0); MEAN CORPUSCULAR HEMOGLOBIN 28.9 pg (27.0-33.0); MEAN CORPUSCULAR HGB CONC 34.4 g/dl (32.0-36.5); MEAN CORPUSCULAR VOLUME 84.1 fl (80.0-96.0); MONO # 0.7 10^3/uL (0.0-0.8); MONO % 8.5 % (0.0-5.0); NEUTROPHILS # 3.8 10^3/uL (1.5-8.5); PLATELET COUNT, AUTOMATED 263 10^3/uL (150-450); RED BLOOD COUNT 5.22 10^6/uL (4.30-6.10); WHITE BLOOD COUNT 8.2 10^3/uL (4.0-10.0)
[2019-09-30 06:56] LABS: ALBUMIN 3.8 GM/DL (3.2-5.2); ALT/SGPT 34 U/L (12-78); BILIRUBIN,DIRECT < 0.1 MG/DL (0.0-0.2); BILIRUBIN,TOTAL 0.6 MG/DL (0.2-1.0); BLOOD UREA NITROGEN 15 MG/DL (7-18); CALCIUM LEVEL 8.6 MG/DL (8.5-10.1); CARBON DIOXIDE LEVEL 30 MEQ/L (21-32); CHLORIDE LEVEL 103 MEQ/L (98-107); CK-MB VALUE MASS < 1.0 NG/ML (<3.6); CPK CREATINE PHOSPHOKINASE 172 U/L (39-308); CREATININE FOR GFR 1.16 MG/DL (0.70-1.30); FREE T4 1.04 NG/DL (0.76-1.46); GLOMERULAR FILTRATION RATE > 60.0 (>60); GLUCOSE, FASTING 100 MG/DL (70-100); MB/CK RELATIVE INDEX 0.58 (< OR =4); PHOSPHORUS LEVEL 3.7 MG/DL (2.5-4.9); SODIUM LEVEL 139 MEQ/L (136-145); TROPONIN I < 0.02 NG/ML (< 0.10)
--- NOTE | 2019-10-19 17:13 | ECGEPIP ---
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 INC. RBBB SEE CONFIRMED DOWNTIME REPORT
--- NOTE | 2019-10-30 10:47 | REP ---
CHEST X-RAY CLINICAL: Chest pain. TECHNIQUE: PA and lateral. COMPARISON: 02/07/2019. FINDINGS: Mediastinum and cardiac silhouette normal. Lung sepulveda clear. No focal consolidation, effusion, or pneumothorax. Skeletal structures are intact. IMPRESSION: No focal consolidation. MTDD
== END 2019-09-30 07:25 | disposition home or self-care (01) ==
LOC: M ED 01:52
DX: R51 Headache (principal); R00.2 Palpitations; R20.8 Other disturbances of skin sensation; F41.9 Anxiety disorder, unspecified; Z79.899 Other long term (current) drug therapy; Z87.891 Personal history of nicotine dependence
CPT/HCPCS: 71046; 80048; 80076; 82550; 82553; 83735; 84100; 84439; 84443; 84484; 85025; 93005; 93041; 94760; 96374; 99284; J1885

== ENCOUNTER 2019-10-28 02:02 | Emergency (ER) | payer SELFPAY ==
[~2019-10-28] VITALS: Ht 182.9 cm; Wt 100.0 kg
[~2019-10-28 02:02] MED LIST changes: +ESCI10TA2 PO; +HYDR-643 PO; +LORA1TAB4 PO
[2019-10-28 02:57] LABS: BASO # 0.1 10^3/uL (0.0-0.2); BASO % 0.5 % (0.0-1.0); EOS # 0.3 10^3/uL (0.0-0.5); EOS % 2.8 % (0.0-3.0); HEMATOCRIT 45.6 % (42.0-52.0); HEMOGLOBIN 14.9 g/dl (13.5-17.5); LYMPH # 5.4 10^3/uL (1.5-5.0); LYMPH % 54.2 % (24.0-44.0); MEAN CORPUSCULAR HEMOGLOBIN 27.6 pg (27.0-33.0); MEAN CORPUSCULAR HGB CONC 32.7 g/dl (32.0-36.5); MEAN CORPUSCULAR VOLUME 84.4 fl (80.0-96.0); MONO % 9.5 % (0.0-5.0); NEUTROPHILS # 3.3 10^3/uL (1.5-8.5); NEUTROPHILS % 32.8 % (36.0-66.0); PLATELET COUNT, AUTOMATED 259 10^3/uL (150-450)
[2019-10-28 03:10] LABS: BLOOD UREA NITROGEN 23 MG/DL (7-18); CALCIUM LEVEL 8.8 MG/DL (8.5-10.1); CARBON DIOXIDE LEVEL 29 MEQ/L (21-32); CHLORIDE LEVEL 103 MEQ/L (98-107); CK-MB VALUE MASS < 1.0 NG/ML (<3.6); CPK CREATINE PHOSPHOKINASE 359 U/L (39-308); CREATININE FOR GFR 1.41 MG/DL (0.70-1.30); GLOMERULAR FILTRATION RATE > 60.0 (>60); GLUCOSE, FASTING 102 MG/DL (70-100); MB/CK RELATIVE INDEX 0.28 (< OR =4); POTASSIUM SERUM 3.4 MEQ/L (3.5-5.1); SODIUM LEVEL 138 MEQ/L (136-145); TROPONIN I < 0.02 NG/ML (< 0.10)
--- NOTE | 2019-10-28 03:59 | REPVR ---
PROCEDURE INFORMATION: Exam: XR Chest, 1 View Exam date and time: 10/28/19 (3:14am) Age: 29 years old Clinical indication: Chest pain TECHNIQUE: Imaging protocol: Portable CXR Views: 1 view COMPARISON: Chest films of 09/30/19 FINDINGS: Lungs: Unremarkable. No consolidation. Pleural space: Unremarkable. No pleural effusions. No pneumothorax. Heart/Mediastinum: Unremarkable. No cardiomegaly. Bones/joints: Unremarkable. IMPRESSION: No acute findings. The lung sepulveda remain clear. Electronically signed by: Kavay العلي On 10/28/2019 03:58:50 AM
[2019-10-28 04:36] VITALS: BP 117/63
--- NOTE | 2019-10-28 08:03 | ECGEPIP ---
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
== END 2019-10-28 04:39 | disposition home or self-care (01) ==
LOC: M ED 02:02
DX: F43.0 Acute stress reaction (principal)

== ENCOUNTER 2019-12-17 21:59 | Emergency (ER) | payer SELFPAY ==
[~2019-12-17] VITALS: Ht 182.9 cm; Wt 95.5 kg
[2019-12-17] MEDS ORDERED: HYDR-3363 (22:04)
[2019-12-17] MEDS ORDERED: NS 1,000 ML IV ONE (23:00)
[2019-12-17] MEDS ORDERED: METOCLOPRAMIDE INJ 10MG/2ML VIAL (J2765 PER 1) IV ONE (23:00)
--- NOTE | 2019-12-17 23:30 | REPVR ---
PROCEDURE INFORMATION: Exam: CT Head Without Contrast Exam date and time: 12/17/2019 10:52 PM Age: 29 years old Clinical indication: Pain; Headache; Migraine; Aura effect not specified; Additional info: Headache, burning sensation R side TECHNIQUE: Imaging protocol: Computed tomography of the head without contrast. Radiation optimization: All CT scans at this facility use at least one of these dose optimization techniques: automated exposure control; mA and/or kV adjustment per patient size (includes targeted exams where dose is matched to clinical indication); or iterative reconstruction. COMPARISON: No relevant prior studies available. FINDINGS: Brain: No intracranial hemorrhage or extra-axial fluid collection. No evidence of mass effect or midline shift. Bowman-white matter differentiation is intact. Cerebral ventricles: No ventriculomegaly. Bones/joints: No acute osseus lesion or fracture. Paranasal sinuses: Mild mucosal thickening of the paranasal sinuses. Mastoid air cells: Unremarkable. Soft tissues: Unremarkable. IMPRESSION: 1. No acute intracranial pathology. 2. Mild mucosal thickening of the paranasal sinuses. Electronically signed by: Lj Myers On 12/17/2019 23:29:55 PM
[2019-12-17 23:34] LABS: BASO % 0.4 % (0.0-1.0); EOS # 0.3 10^3/uL (0.0-0.5); EOS % 3.3 % (0.0-3.0); HEMATOCRIT 45.1 % (42.0-52.0); HEMOGLOBIN 14.5 g/dl (13.5-17.5); LYMPH # 3.4 10^3/uL (1.5-5.0); LYMPH % 40.8 % (24.0-44.0); MEAN CORPUSCULAR HEMOGLOBIN 27.1 pg (27.0-33.0); MEAN CORPUSCULAR HGB CONC 32.2 g/dl (32.0-36.5); MEAN CORPUSCULAR VOLUME 84.1 fl (80.0-96.0); MONO # 0.8 10^3/uL (0.0-0.8); MONO % 9.2 % (0.0-5.0); NEUTROPHILS # 3.8 10^3/uL (1.5-8.5); NEUTROPHILS % 46.1 % (36.0-66.0); PLATELET COUNT, AUTOMATED 248 10^3/uL (150-450); RED BLOOD COUNT 5.36 10^6/uL (4.30-6.10); WHITE BLOOD COUNT 8.2 10^3/uL (4.0-10.0)
[2019-12-18 00:20] LABS: ALBUMIN 3.7 GM/DL (3.2-5.2); ALT/SGPT 39 U/L (12-78); BILIRUBIN,DIRECT < 0.1 MG/DL (0.0-0.2); BILIRUBIN,TOTAL 0.4 MG/DL (0.2-1.0); BLOOD UREA NITROGEN 20 MG/DL (7-18); CALCIUM LEVEL 8.9 MG/DL (8.5-10.1); CARBON DIOXIDE LEVEL 30 MEQ/L (21-32); CHLORIDE LEVEL 105 MEQ/L (98-107); CREATININE FOR GFR 1.16 MG/DL (0.70-1.30); FREE T4 0.73 NG/DL (0.76-1.46); GLOMERULAR FILTRATION RATE > 60.0 (>60); GLUCOSE, FASTING 83 MG/DL (70-100); PHOSPHORUS LEVEL 3.8 MG/DL (2.5-4.9); SODIUM LEVEL 142 MEQ/L (136-145); TOTAL PROTEIN 7.1 GM/DL (6.4-8.2)
[2019-12-18 00:44] VITALS: BP 125/75
== END 2019-12-18 01:16 | disposition home or self-care (01) ==
LOC: M ED 21:59
DX: R51.9 Headache, unspecified (principal); Z86.59 Personal history of other mental and behavioral disorders; R09.81 Nasal congestion; Z79.899 Other long term (current) drug therapy
CPT/HCPCS: 70450; 80048; 80076; 83735; 84100; 84439; 84443; 85025; 96361; 96374; 99284; J2765

== ENCOUNTER 2019-12-27 20:03 | Emergency (ER) | payer SELFPAY ==
[~2019-12-27] VITALS: Ht 182.9 cm; Wt 108.0 kg
[2019-12-27 20:03] VITALS: BP 116/84
[~2019-12-27 20:03] MED LIST changes: +HYDR-3363
--- NOTE | 2019-12-28 06:38 | ECGEPIP ---
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
== END 2019-12-27 20:50 | disposition home or self-care (01) ==
LOC: M ED 20:03
DX: F41.9 Anxiety disorder, unspecified (principal); R94.31 Abnormal electrocardiogram [ECG] [EKG]; Z79.899 Other long term (current) drug therapy

== ENCOUNTER → 2020-01-09 | Outpatient (CLI) | payer SELFPAY ==
[2020-01-09 20:01] LABS: C REACTIVE PROTEIN QUANTITATIV < 0.30 MG/DL (0.00-0.30); CHOLESTEROL LEVEL 278 MG/DL (<200); CHOLESTEROL RISK RATIO 7.315 (<5); HDL CHOLESTEROL 38 MG/DL (>40); LDL CHOLESTEROL 177 MG/DL (<100); NON-HDL-C 240 MG/DL; TRIGLYCERIDES LEVEL 314 MG/DL (<150)
== END ==
LOC: M WUC 15:50
PROVIDERS: ATTEND Internal Medicine Cardiovascular Disease
DX: R07.2 Precordial pain (principal)

== ENCOUNTER 2020-03-27 13:07 | Emergency (ER) | payer SELFPAY ==
[~2020-03-27] VITALS: Ht 182.9 cm; Wt 101.8 kg
[~2020-03-27 13:07] MED LIST changes: +ESCI10TA16 PO; -ESCI10TA2 PO
[2020-03-27 13:09] VITALS: BP 133/79
[2020-03-27] MEDS ORDERED: CETI-24 (13:17)
[2020-03-27] MEDS ORDERED: LEXA1TAB2 (13:17)
[2020-03-27] MEDS ORDERED: AUGM875T28 PO (13:39)
--- OUTSIDE RECORDS SUMMARY | 2020-03-27 14:00 | CCD ---
Author Organization Unknown Address [address] [place] [address] Phone [phone] Care Team Providers Care Facilities Specialist Name Role Phone Terry Quiroga Arsh Unavailable Unavailable Allergies Code Code System Name Reaction Severity Status Onset 9229 RxNorm Reglan Other Active Medications Name Status Start Date Stop Date albuterol sulfate HFA 90 mcg/actuation a erosol inhaler INHALE 2 PUFFS BY MOUTH EVERY 4 HOURS NEEDED Active Not available cetirizine 10 mg tablet TAKE 1 TABLET BY MOUTH ONCE DAILY Active Not a vailable escitalopram 10 mg tablet TAKE 1 TABLET BY MOUTH ONCE DAILY Completed 01/05 escitalopram 20 mg tablet TAKE 1 TABLET BY MOUTH ONCE DAILY Active Not a vailable fluticasone propionate 50 mcg/actuation nasal spray,suspension [place] 1 spray every day by intranasal route as needed. Active Not available hydroxyzine HCl 10 mg tablet TAKE 1 TO 2 TABLETS BY MOUTH EVERY 6 HOURS NEEDED Completed 12/31/2019 hydroxyzine HCl 25 mg tablet TAKE 1 TO 2 TABLETS BY MOUTH ONCE DAILY NEEDED Active Not available lorazepam 1 mg tablet TAKE 1 TABLET BY MOUTH ONCE DAILY NEEDED . DO NOT EXCEED 1 PER 24 HOURS Active Not available omeprazole 20 mg capsule,delayed release TAKE 1 CAPSULE BY MOUTH IN THE MORNING ON AN EMPTY STOMACH Active Not available sumatriptan 25 mg tablet Take 1 tablet po at onset of migraine, repeat in 2 hrs if headache persists; MDD 2 tablets Active Not available trazodone 50 mg tablet TAKE 1 TABLET BY MOUTH ONCE DAILY AT BEDTIME Completed 02/02/2020 Problems Name Status Onset Date Source Procedure by Method Unknown 09/10/2019 History Panic Disorder Unknown 09/10/2019 History Gastroesophageal Reflux Disease without Esophagitis Active 09/24/2019 History Generalized Anxiety Disorder Active 12/01/2019 Psychophysiologic Insomnia Active 12/11/2019 Panic Disorder without Agoraphobia Active 12/29/2019 Elevated Blood-pressure Reading without Diagnosis of Hyperte nsion Active 02/02/2020 Procedures None recorded. Results Lab Results Date Name Specimen Result Interpretation Description Value Range Status Address 01/09/2020 Lipid Panel, Blood High Triglycerides Lev el 314 mg/dL <150 mg/dL Final [facility]: [address] [facility] High Cholesterol Level 278 mg/dL <200 mg/ dL Final [facility]: [address] [facility] Low HDL Cholesterol 38 mg/dL >40 mg/dL F inal [facility]: [address] [facility] High LDL Cholesterol 177 mg/dL <100 mg/dL Final [facility]: [address] [facility] Normal Non-hdl-c 240 mg/dL Final [facility]: [address] [facility] High Cholesterol Risk Ratio 7.315 <5 [facility]: [address] [facility] 01/09/2020 C Reactive Protein, QN, Serum or Plasma Normal C Reactive Protein Quantitativ < 0.30 mg/dL 0.00-0.30 mg/dL [facility]: [address] [facility] 12/16/2019 Rapid Flu (A+B) Nasopharyngeal No observation re corded. 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 02/02/2020 Panic Disorder without Agoraphobia; Generalized Anxiety Disorder Merlene Sadler [facility]: [facility] [address] [address], Ph. 02/02/2020 Generalized Anxiety Disorder; Psychophysiologic Insomnia; Elevated Blood- pressure Reading without Diagnosis of Hypertension; Hyperlipidemia; Body Mass Index 30+ - Obesity; Obesity Terry Quiroga, ISHA-C: [address] [place] [address] [address], [place] [address], Ph. 01/28/2020 Panic Disorder without Agoraphobia; Generalized Anxiety Disorder Merlene Sadler LMSW: [address], [place] [address], Ph. 01/20/2020 Panic Disorder without Agoraphobia; Generalized Anxiety Disorder Merlene Sadler [facility]: [address] [facility], [place] [address], Ph. 01/16/2020 Panic Disorder without Agoraphobia; Generalized Anxiety Disorder Merlene Sadler LMSW: [address] [facility], [facility] [address], [place] [address], Ph. 01/08/2020 Panic Disorder without Agoraphobia Merlene Sadler [facility]: [address] [facility], [facility] [address], [place] [address], Ph. 01/06/2020 Migraine without Aura; Generalized Anxiety Disorder; Allergic Rhinitis Terry Quiroga, RPA-C: [address] [facility], [facility] [address], [place] [address], Ph. 12/31/2019 Generalized Anxiety Disorder; Tension-type Headache; Chest Pain Terry Quiroga, RPA-C: [address] [facility], [facility] [address], [place] [address], Ph. 12/26/2019 Panic Disorder without Agoraphobia; Generalized Anxiety Disorder Merlene Sadler [facility]: [address], [place] [address], Ph. 12/19/2019 Panic Disorder; Generalized Anxiety Disorder Merlene Sadler [facility]: [address], [place] [address], Ph. 12/18/2019 Generalized Anxiety Disorder; Panic Disorder Merlene Sadler [facility]: [address], [place] [address], Ph. 12/12/2019 Panic Disorder; Generalized Anxiety Disorder Merlene Sadler [facility]: [address] [facility], [facility] [address], [place] [address], Ph. 12/11/2019 Generalized Aches and Pains; Psychophysiologic Insomnia; Acute Upper Respiratory Infection Terry Quiroga, RPA-C: [address] [facility] [address], [place] [address], Ph. 12/03/2019 Panic Disorder Merlene Sadler [facility]: [address] [facility], [facility] [address], [place] [address], Ph. 11/26/2019 Panic Disorder; Generalized Anxiety Disorder Merlene Sadler [facility]: [address] [facility], [facility] [address], [place] [address], Ph. Social History Tobacco Smoking Status Former Smoker Vaccine List None recorded. Plan of Care Reminders Provider Appointments None recorded. Lab None recorded. Referral None recorded. Procedures None recorded. Surgeries None recorded. Imaging None recorded. Vitals 02/02/2020 02:10PM ESTABLISHED [id number] Height Weight BMI Blood Pressure 72 in 224 lbs 12.8 oz 30.5 kg/m2 (1) 145/81 mm[Hg] (2) 127/82 mm[Hg] 01/06/2020 03:10PM SAME DAY 20 Height Weight BMI Blood Pressure 72 in 223 lbs 30.2 kg/m2 120/81 mm[Hg] 12/31/2019 09:10AM ESTABLISHED [id number] Height Weight BMI Blood Pressure 72 in 224 lbs 3.2 oz 30.4 kg/m2 130/86 mm[Hg ] 12/11/2019 03:50PM ESTABLISHED [id number] Height Weight BMI Blood Pressure 72 in 222 lbs 6 oz 30.2 kg/m2 130/85 mm[Hg] 09/30/2019 Height Weight Blood Pressure 72 in 221 lbs 3.2 oz (1) 148/91 mm[Hg] (2) 135/91 mm[Hg] 09/24/2019 Height Weight Blood Pressure 72 in 221 lbs 6.4 oz 122/74 mm[Hg] 09/10/2019 Height Weight Blood Pressure 72 in 219 lbs 4 oz 118/76 mm[Hg]
--- OUTSIDE RECORDS SUMMARY | 2020-03-27 14:00 | CCD | Continuity of Care Document ---
Author Author Cristóbal GRUBBS MD Organization Unknown Address [place] [address] Phone [phone] Care Team Providers Care Compensation Associate Name Role Phone Terry Quiroga AUTM [phone] Problems Active Problems Provider Date Precordial pain Luis Antonio Grubbs MD Onset: 01/07/2020 Electrocardiogram abnormal Luis Antonio Grubbs MD Onset: 2019 Body mass index 30+ - obesity Luis Antonio Grubbs MD Onset: 03/2019 Palpitations Luis Antonio Grubbs MD Onset: 01/07/2020 Gastroesophageal reflux disease Luis Antonio Grubbs MD Onset: 1 03/09/2019 Social History Type Date Description Comments Sex Unknown ETOH Use Occasionally consumes alcohol Tobacco Use Start: Unknown End: Unknown Patient is a former smoker Smoked a few cigarettes daily from age [age] Smoking Status Reviewed: 01/07/20 Patient is a former smoker Sm oked a few cigarettes daily from age [age] Exercise Type/Frequency [facility] Exercise Limitations None Allergies, Adverse Reactions, Alerts Description No Known Drug Allergies Medications Active Medications SIG Qnty Indications Ordering Provide r Date Omeprazole 20mg Capsules DR 1 by mouth every day Unknown 01/06/2020 Escitalopram Oxalate 20mg Tablets 1 by mouth every day Unknown 01/06/2020 Hydroxyzine HCL 25mg Tablets 1-2 by mouth daily at bedtime as needed Unknown 01/05 Trazodone HCL 50mg Tablets 1 by mouth every night at bedtime Unknown 0 Lorazepam 1mg Tablets 1/2-1 by mouth every 6 hours as needed Unknown 01/06/2020 Cetirizine HCL 10mg Tablets 1 by mouth every day Unknown 01/06/2020 Immunizations Description No Information Available Vital Signs Date Vital Result Comment 01/07/2020 1:23pm Weight 222.00 lb Home Weight 220lb home weight Height 72 inches 6'0" BMI (Body Mass Index) 30.1 kg/m2 Heart Rate 52 /min regular Respiratory Rate 16 /min BP Systolic Sitting 108 mmHg large cuff, Ra; 110/ 72 LA BP Diastolic Sitting 68 mmHg large cuff, Ra; 110 /72 LA BP Systolic Lying Down 108 mmHg Ra BP Diastolic Lying Down 68 mmHg Ra Results Test Acquired Date Facility Test Result H/L Range Note CMP 12/17/2019 [facility] - not interfaced (315)- - Albumin Serum/Plasma 3.7 Alt - SGPT 39 Calcium Ser/Plasma Mass/Vol 8.9 Carbon Dioxide Ser/Plasm 30 Chloride Serum/Plasma 105 Alkaline Phosphatase 80 Potassium 4.0 Protein Total 7.1 Sodium 142 Ast - Sgot 24 BUN - Urea Nitrogen 20 Glucose 83 70-100 Creatinine For GFR 1.16 Laboratory test finding 12/17/2019 [facility] - not interf aced (315)- - Magnesium Level 2.0 1.8-2.4 Thyroid Stimulating Hormone 1.360 Free T4 0.73 CBC without Differential 12/17/2019 [facility] - not inter faced (315)- - White Blood Count 8.2 4.0-10.0 Red Blood Count 5.36 4.00-5.40 Platelets 248 172-450 Hemoglobin 14.5 Hematocrit 45.1 CPK & CPK MB 10/28/2019 [facility] - not interfaced (315)- - CPK 359 CPK-MB <1.0 Laboratory test finding 10/28/2019 [facility] - not interf aced (315)- - Troponin <0.02 Procedures Date Code Description Status 01/07/2020 86619 ECG 12-Lead Completed Medical Devices Description No Information Available Encounters Type Date Location Provider Dx Diagnosis Office Visit 01/07/2020 1:00p Main Office Luis Antonio Grubbs MD R07.2 Precordial pain R00.2 Palpitations R94.31 Abnormal electrocardiogram [ ECG] [EKG] K21.9 Gastro-esophageal reflux dis ease without esophagitis Assessments Date Code Description Provider 01/07/2020 R07.2 Precordial pain Luis Antonio Grubbs MD 01/07/2020 R00.2 Palpitations Luis Antonio Grubbs MD 01/07/2020 R94.31 Abnormal electrocardiogram [ECG] [EKG] Luis Antonio Grubbs MD 01/07/2020 K21.9 Gastro-esophageal reflux disease without esophagitis Luis Antonio Grubbs MD Plan of Treatment 01/07/2020 - Luis Antonio Grubbs MD* R07.2 Precordial pain* New Labs:* C-Reactive Protein, Scheduled: 01/08/20 * Lipid Panel, Scheduled: 01/08/20 * New Xrays:* US Echocardiogram Transthoracic W Doppler And Color Flow, Ordered: 01/07/20 * New Orders:* Treadmill, Ordered: 01/07/20 * Recommendations:* A regular stress study has been recommended to objectively define his coronary prognosis. We have also suggested an echocardiogram/Doppler study to rule out other potential cardiovascular causes of chest pain i.e. pericardial inflammation, pulmonary hypertension, cardiomyopathy etc. Have also suggested obtaining a C-reactive protein and fasting lipid profile. Would encourage antireflux measures as described below. * R00.2 Palpitations* New Orders:* Holter Monitor, Ordered: 01/07/20 * Recommendations:* In light of the frequency of this symptom, we have requested a 24 hour recording of his spontaneous rhythm to objectively ascertain whether his symptoms are related to a rhythm disturbance. Again would encourage his continued avoiding all caffeinated beverages, alcohol, nicotine and [id number] decongestants, pep pills, dietary aids etc. that might exacerbate his symptoms and increase his risk of rhythm disturbance. * R94.31 Abnormal electrocardiogram [ECG] [EKG]* Recommendations:* Pending noninvasive test findings. * K21.9 Gastro-esophageal reflux disease without esophagitis* Recommendations:* Would encourage antireflux measures including avoiding eating or drinking for 2-3 hours prior to lying down, and minimizing caffeine and alcohol ingestion. Remains on omeprazole therapy to minimize long-term adverse affects on his GI and respiratory systems. * All * Comments:* I will ensure that the aforementioned test findings are reported to you along with any further recommendations. Thank you for allowing me to participate in the care of your patient. Best regards. * Follow up:* Pending test results Functional Status Functional Condition Comment Date Status Independent with all ADL's Activ e Mental Status Description No Information Available Referrals Description No Information Available
--- OUTSIDE RECORDS SUMMARY | 2020-03-27 14:00 | CCD ---
Author Organization Unknown Address [address] [place] [address] Phone [phone] Care Team Providers Care Salad Bar Clerk Name Role Phone Terry Quiroga Arsh Unavailable [...] vailable fluticasone propionate 50 mcg/actuation nasal spray,suspension [place] 1 spray every day by intranasal route [...] TABLET BY MOUTH ONCE DAILY AT BEDTIME Active Not available Problems Name Status Onset Date Source Procedure by Method Unknown 09/10/2019 History Panic Disorder Unknown 09/10/2019 History Gastroesophageal Reflux Disease without Esophagitis Active 09/24/2019 History Generalized Anxiety Disorder Active 12/01/2019 Psychophysiologic Insomnia Active 12/11/2019 Panic Disorder without Agoraphobia Active 12/29/2019 Procedures None recorded. Results Lab Results Date Name Specimen Result Interpretation Description Value Range Status Address 01/09/2020 Lipid Panel, Blood High Triglycerides Lev el 314 mg/dL <150 mg/dL Final [facility]: [address] 0 [facility] High Cholesterol Level 278 mg/dL <200 mg/ dL Final [facility]: [address] [facility] Low HDL Cholesterol 38 mg/dL >40 mg/dL F inal [facility]: [address] [facility] High LDL Cholesterol 177 mg/dL <100 mg/dL Final [facility]: [address] [facility] Normal Non-hdl-c 240 mg/dL Final [facility]: [address] [facility] High Cholesterol Risk Ratio 7.315 <5 Final [facility]: [address] [facility] 01/09/2020 C Reactive Protein, QN, Serum or Plasma Normal C Reactive Protein Quantitativ < 0.30 mg/dL 0.00-0.30 mg/dL Final [facility]: [address] [facility] 12/16/2019 Rapid Flu (A+B) Nasopharyngeal No observation re corded. 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 01/20/2020 Panic Disorder without Agoraphobia; Generalized Anxiety Disorder Merlene Sadler [facility]: [address] [facility], [facility] [address], [place] [address], Ph. 01/16/2020 Panic Disorder without Agoraphobia; Generalized Anxiety Disorder Merlene Davisjeffrey [facility]: [address] [facility] [address], [place] [address], Ph. 01/08/2020 Panic Disorder without Agoraphobia Merlene Sadler [facility]: [address] [facility], [facility] [address], [place] [address], Ph. 01/06/2020 Migraine without Aura; Generalized Anxiety Disorder; Allergic Rhinitis Terry Quiroga, RPA-C: [address] [facility], [facility] [address], [place] [address], Ph. 12/31/2019 Generalized Anxiety Disorder; Tension-type Headache; Chest Pain Terry Quiroga, RPA-C: [address] [facility], [facility] [address], [place] [address], Ph. 12/26/2019 Panic Disorder without Agoraphobia; Generalized Anxiety Disorder Merlene Sadler [facility]: [address] [facility], [facility] [address], [place] [address], Ph. 12/19/2019 Panic Disorder; Generalized Anxiety Disorder Merlene Sadler [facility]: [address] [facility], [facility] [address], [place] [address], Ph. 12/18/2019 Generalized Anxiety Disorder; [facility] [address] [facility], [facility] [address], [place] [address], Ph. 12/12/2019 Panic Disorder; [facility] [address] [facility], [facility] [address], [place] [address], Ph. 12/11/2019 Generalized Aches and Pains; Psychophysiologic Insomnia; Acute Upper Respiratory Infection Terry Quiroga, RPA-C: [address] [facility], [facility] [address], [place] [address], Ph. 12/03/2019 Panic Disorder Merlene Sadler [facility]: [address] [facility], [address], [place] [address], Ph. 11/26/2019 Panic Disorder; Generalized Anxiety Disorder Merlene Sadler [facility]: [address] [facility], [facility] [address], [place] [address], Ph. Social History Tobacco Smoking Status Former Smoker Vaccine List None recorded. Plan of Care Reminders Provider Appointments None recorded. Lab None recorded. Referral None recorded. Procedures None recorded. Surgeries None recorded. Imaging None recorded. Vitals 01/06/2020 03:10PM SAME DAY 20 Height Weight BMI Blood Pressure 72 in 223 lbs 30.2 kg/m2 120/81 mm[Hg] 12/31/2019 09:10AM ESTABLISHED [id number] Height Weight BMI Blood Pressure 72 in 224 lbs 3.2 oz 30.4 kg/m2 130/86 mm[Hg ] 12/11/2019 03:50PM ESTABLISHED [id number] Height Weight BMI Blood Pressure 72 in [...]
--- OUTSIDE RECORDS SUMMARY | 2020-03-27 14:00 | CCD ---
Author Organization Unknown Address [address] [place] [address] Phone [phone] Care Team Providers Care Dimension Quarry Supervisor Name Role Phone Terry Quiroga Arsh Unavailable [...] vailable fluticasone propionate 50 mcg/actuation nasal spray,suspension [place] 1 spray every day by intranasal route [...] Lev el 314 mg/dL <150 mg/dL Final : 83 0 [facility] High Cholesterol Level 278 mg/dL <200 mg/ dL Final : 830 [facility] Low HDL Cholesterol 38 mg/dL >40 mg/dL F inal : 830 [facility] High LDL Cholesterol 177 mg/dL <100 mg/dL Final : 830 [facility] Normal Non-hdl-c 240 mg/dL Final [facility]: [address] [facility] High Cholesterol Risk Ratio 7.315 <5 [facility]: 8[address] [facility] 01/09/2020 C Reactive Protein, QN, Serum or Plasma Normal C Reactive Protein Quantitativ < 0.30 mg/dL 0.00-0.30 mg/dL Final [facility]: 830 [facility] 12/16/2019 Rapid Flu (A+B) Nasopharyngeal No observation re corded. 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 [facility]): [address] Past Encounters 03/05/2020 Generalized Anxiety Disorder; Panic Disorder without Agoraphobia Merlene Sadler [facility]: [address] [facility] [address], [place] [address], Ph. 02/20/2020 Panic Disorder without Agoraphobia; Generalized Anxiety Disorder Merlene Sadler [facility]: [address] [facility] [address], [place] [address], Ph. 02/02/2020 Panic Disorder without Agoraphobia; Generalized Anxiety Disorder Merlene Sadler [facility]: [address] [facility] [address], [place] [address], Ph. 02/02/2020 Generalized Anxiety Disorder; Psychophysiologic Insomnia; Elevated Blood- pressure Reading without Diagnosis of Hypertension; Hyperlipidemia; Body Mass Index 30+ - Obesity; Obesity Terry Quiroga, RPA-C: [address], [place] [address], Ph. 01/28/2020 Panic Disorder without Agoraphobia; Generalized Anxiety Disorder Merlene Sadler [facility]: [address], [place] [address], Ph. 01/20/2020 Panic Disorder without Agoraphobia; Generalized Anxiety Disorder Merlene Sadler [facility]: [address], [place] [address], Ph. 01/16/2020 Panic Disorder without Agoraphobia; Generalized Anxiety Disorder Merlene Sadler [facility]: [address], [place] [address], Ph. 01/08/2020 Panic Disorder without Agoraphobia Merlene Sadler [facility]: [address], [place] [address], Ph. 01/06/2020 Migraine without Aura; Generalized Anxiety Disorder; Allergic Rhinitis Terry Quiroga, RPA-C: [address], [place] [address], Ph. 12/31/2019 Generalized Anxiety Disorder; Tension-type Headache; Chest Pain Terry Quiroga, RPA-C: [address], [place] [address], Ph. 12/26/2019 Panic Disorder without Agoraphobia; Generalized Anxiety Disorder Merlene Sadler [facility]: [address], [place] [address], Ph. 12/19/2019 Panic Disorder; Generalized Anxiety Disorder Merlene Sadler [facility]: [address], [place] [address], Ph. 12/18/2019 Generalized Anxiety Disorder; Panic Disorder Merlene Sadler [facility]: [address] [facility], [facility] [address], [place] [address], Ph. 12/12/2019 Panic Disorder; Generalized Anxiety Disorder Merlene Sadler [facility]: [address] [facility], [facility] [address], [place] [address], Ph. 12/11/2019 Generalized Aches and Pains; Psychophysiologic Insomnia; Acute Upper Respiratory Infection Terry Quiroga RPA-C: [address] [facility], [facility] [address], [place] [address], Ph. 12/03/2019 Panic Disorder Merlene Sadler [facility]: [address] [facility], [facility] [address], [place] [address], Ph. 11/26/2019 Panic Disorder; Generalized Anxiety Disorder Merlene Sadler [facility]: [address] [facility], [facility] [address], [place] [address], Ph. Social History Tobacco Smoking Status Former Smoker Vaccine List None recorded. Plan of Care Reminders Provider Appointments None recorded. Lab None recorded. Referral None recorded. Procedures None recorded. Surgeries None recorded. Imaging None recorded. Vitals 02/02/2020 02:10PM ESTABLISHED [id number] Height Weight BMI Blood Pressure 72 in 224 lbs 12.8 oz 30.5 kg/m2 (1) 145/81 mm[Hg] (2) 127/82 mm[Hg] 01/06/2020 03:10PM SAME DAY 20 Height Weight BMI Blood Pressure 72 in 223 lbs 30.2 kg/m2 120/81 mm[Hg] 12/31/2019 09:10AM ESTABLISHED [id number] Height Weight BMI Blood Pressure 72 in 224 lbs 3.2 oz 30.4 kg/m2 130/86 mm[Hg ] 12/11/2019 03:50PM ESTABLISHED [id number] Height Weight BMI Blood Pressure 72 in [...]
--- OUTSIDE RECORDS SUMMARY | 2020-03-27 14:00 | CCD ---
Author Organization Unknown Address [address] [place] [address] Phone [phone] Care Team Providers Care Collar Setter Name Role Phone Junaid Terry Caban Unavailable Unavailable Allergies Code Code System Name [...] vailable fluticasone propionate 50 mcg/actuation nasal spray,suspension [place] 1 spray every day by intranasal route [...] Lev el 314 mg/dL <150 mg/dL Final [facility]: 83 0 [facility] High Cholesterol Level 278 mg/dL <200 mg/ dL Final [facility]: [address] [facility] Low HDL Cholesterol 38 mg/dL >40 mg/dL F inal [facility]: [address] [facility] High LDL Cholesterol 177 mg/dL <100 mg/dL Final [facility]: [address] [facility] Normal Non-hdl-c 240 mg/dL Final [facility]: [address] [facility] High Cholesterol Risk Ratio 7.315 <5 [facility]: 0 [facility] 01/09/2020 C Reactive Protein, QN, Serum or Plasma Normal C Reactive Protein Quantitativ < 0.30 mg/dL 0.00-0.30 mg/dL [facility]: [address] [facility] 12/16/2019 Rapid Flu (A+B) Nasopharyngeal No observation re corded. [facility] Medical: [address] [place] [address] [address] 12/11/2019 COVID-19 RNA (SARS-CoV-2), QL, repair clerk-PCR, Respiratory Specimen Nasopharyngeal Normal Sars Cov 2 RNA not detected not detected Fi nal [facility] ([employer] [facility]): [address] Past Encounters 02/02/2020 [facility]lene Sad[facility]: [address] [place] [address] [address], [place] [address], Ph. 02/02/2020 Generalized Anxiety Disorder; Psychophysiologic Insomnia; Elevated Blood- pressure Reading without Diagnosis of Hypertension; Hyperlipidemia; Body Mass Index 30+ - Obesity; Obesity Terry Quiroga RPA-C: [address] [place] [place] [address] [address], [place] [address], Ph. 01/28/2020 Panic Disorder without Agoraphobia; Generalized Anxiety Disorder Merlene Sadler [facility]: [address] [place] [place] [address] [address], [place] [address], Ph. 01/20/2020 Panic Disorder without Agoraphobia; Generalized Anxiety Disorder Merlene Sadler [facility]: [address], [place] [address], Ph. 01/16/2020 Panic Disorder without Agoraphobia; Generalized Anxiety Disorder Merlene Sadler [facility]: [address], [place] [address], Ph. 01/08/2020 Panic Disorder without Agoraphobia Merlene Sadler [facility]: [address], [place] [address], Ph. 01/06/2020 Migraine without Aura; Generalized Anxiety Disorder; Allergic Rhinitis Terry Quiroga, RPA-C: [address], [place] [address], Ph. 12/31/2019 Generalized Anxiety Disorder; Tension-type Headache; Chest Pain Terry Quiroga, RPA-C: [address], [place] [address], Ph. 12/26/2019 Panic Disorder without Agoraphobia; Generalized Anxiety Disorder Merlene Sadler [facility]: [address], [place] [address], Ph. 12/19/2019 Panic Disorder; Generalized Anxiety Disorder Merlene Sadler [facility]: [address], [place] [address], Ph. 12/18/2019 Generalized Anxiety Disorder; Panic Disorder Merlene Sadler [facility]: [address], [place] [address], Ph. 12/12/2019 Panic Disorder; Generalized Anxiety Disorder Merlene Sadler [facility]: [address], [place] [address], Ph. 12/11/2019 Generalized Aches and Pains; Psychophysiologic Insomnia; Acute Upper Respiratory Infection MADDISON RossC: [address] [facility], [facility] [address], [place] [address], Ph. 12/03/2019 Panic Disorder Merlene Sadler [facility]: [address] [facility], [facility] [address], [place] [address], Ph. 11/26/2019 Panic Disorder; Generalized Anxiety Disorder [facility]: [address], [place] [address], Ph. Social History Tobacco Smoking Status Former Smoker Vaccine List None recorded. Plan of Care Reminders Provider Appointments None recorded. Lab None recorded. Referral None recorded. Procedures None recorded. Surgeries None recorded. Imaging None recorded. Vitals 02/02/2020 02:10PM ESTABLISHED [id number] Height Weight BMI Blood Pressure 72 in 224 lbs 12.8 oz 30.5 kg/m2 (1) 145/81 mm[Hg] (2) 127/82 mm[Hg] 01/06/2020 03:10PM SAME DAY 20 Height Weight BMI Blood Pressure 72 in 223 lbs 30.2 kg/m2 120/81 mm[Hg] 12/31/2019 09:10AM ESTABLISHED [id number] Height Weight BMI Blood Pressure 72 in 224 lbs 3.2 oz 30.4 kg/m2 130/86 mm[Hg ] 12/11/2019 03:50PM ESTABLISHED [id number] Height Weight BMI Blood Pressure 72 in [...]
--- OUTSIDE RECORDS SUMMARY | 2020-03-27 14:00 | CCD ---
Author Organization Unknown Address [address] [place] [address] Phone [phone] Care Team Providers Care Wedding Designer Name Role Phone Terry Quiroga Arsh Unavailable [...] vailable fluticasone propionate 50 mcg/actuation nasal spray,suspension [place] 1 spray every day by intranasal route [...] Lev el 314 mg/dL <150 mg/dL Final [facility]: 83 0 [facility] High Cholesterol Level 278 mg/dL <200 mg/ dL Final [facility]: [address] [facility] Low HDL Cholesterol 38 mg/dL >40 mg/dL F inal [facility]: [address] [facility] High LDL Cholesterol 177 mg/dL <100 mg/dL Final [facility]: [address] [facility] Normal Non-hdl-c 240 mg/dL Final [facility]: [address] [facility] High Cholesterol Risk Ratio 7.315 <5 Final [facility]: [address] [facility] 01/09/2020 C Reactive Protein, QN, Serum or Plasma Normal C Reactive Protein Quantitativ < 0.30 mg/dL 0.00-0.30 mg/dL Final [facility]: [address] [facility] 12/16/2019 Rapid Flu (A+B) Nasopharyngeal No observation re corded. [facility]: [address] [facility] [address], [place] 12/11/2019 COVID-19 RNA (SARS-CoV-2), QL, flea market seller-PCR, Respiratory Specimen Nasopharyngeal Normal Sars Cov 2 RNA not detected not detected Fi nal [facility] ([employer] [facility]): [address] Past Encounters 01/08/2020 Panic Disorder without Agoraphobia Merlene Sadler, [facility]: [address] [facility] [address], [place] [address], Ph. 01/06/2020 Migraine without Aura; Generalized Anxiety Disorder; Allergic Rhinitis Terry D Quiroga, RPA-C: [address] [facility] [address], [place] [address], Ph. 12/31/2019 Generalized Anxiety Disorder; Tension-type Headache; Chest Pain Terry D Quiroga, RPA-C: [address] [facility] [address], [place] [address], Ph. 12/26/2019 Panic Disorder without Agoraphobia; Generalized Anxiety Disorder Merlene Sadler [facility]: [address] [facility], [facility] [address], [place] [address], Ph. 12/19/2019 Panic Disorder; Generalized Anxiety Disorder Merlene Sadler [facility]: [address] [facility], [facility] [address], [place] [address], Ph. 12/18/2019 Generalized Anxiety Disorder; Panic Disorder Merlene Sadler [facility]: [address] [facility], [facility] [address], [place] [address], Ph. 12/12/2019 Panic Disorder; Generalized Anxiety Disorder Merlene Sadler [facility]: [address] [facility], [facility] [address], [place] [address], Ph. 12/11/2019 Generalized Aches and Pains; Psychophysiologic Insomnia; Acute Upper Respiratory Infection Terry Quiroga, ISHA-C: [address] [facility], [facility] [address], [place] [address], Ph. 12/03/2019 Panic Disorder Merlene Sadler [facility]: [address] [facility], [facility] [address], [place] [address], Ph. 11/26/2019 Panic Disorder; Generalized Anxiety Disorder Merlene Sadler [facility]: [address] [facility], [facility] [address], [place] [address], Ph. Social History Tobacco Smoking Status Former Smoker Vaccine List None recorded. Plan of Care Reminders Provider Appointments None recorded. Lab None recorded. Referral None recorded. Procedures None recorded. Surgeries None recorded. Imaging None recorded. Vitals 01/06/2020 03:10PM SAME DAY 20 Height Weight BMI Blood Pressure 72 in 223 lbs 30.2 kg/m2 120/81 mm[Hg] 12/31/2019 09:10AM ESTABLISHED [id number] Height Weight BMI Blood Pressure 72 in 224 lbs 3.2 oz 30.4 kg/m2 130/86 mm[Hg ] 12/11/2019 03:50PM ESTABLISHED [id number] Height Weight BMI Blood Pressure 72 in [...]
--- OUTSIDE RECORDS SUMMARY | 2020-03-27 14:00 | CCD ---
Author Organization Unknown Address [address] [place] [address] Phone [phone] Care Team Providers Care Lane Marker Installer Name Role Phone Junaid Terry Arsh Unavailable Unavailable Allergies Code Code System [...] vailable fluticasone propionate 50 mcg/actuation nasal spray,suspension [place] 1 spray every day by intranasal route [...] Lev el 314 mg/dL <150 mg/dL Final [facility]: 83 0 [facility] High Cholesterol Level 278 mg/dL <200 mg/ dL [facility]: [address] [facility] Low HDL Cholesterol 38 mg/dL >40 mg/dL F inal [facility]: [address] [facility] High LDL Cholesterol 177 mg/dL <100 mg/dL Final [facility]: [address] [facility] Normal Non-hdl-c 240 mg/dL Final [facility]: [address] [facility] High Cholesterol Risk Ratio 7.315 <5 [facility]: [address] [facility] 01/09/2020 C Reactive Protein, QN, Serum or Plasma Normal C Reactive Protein Quantitativ < 0.30 mg/dL 0.00-0.30 mg/dL [facility]: [address] [facility] 12/16/2019 Rapid Flu (A+B) Nasopharyngeal No observation re corded. [facility] Medical: [address] [place] [address] [address] 12/11/2019 COVID-19 RNA (SARS-CoV-2), QL, deaf teacher-PCR, Respiratory Specimen Nasopharyngeal Normal Sars Cov 2 RNA not detected not detected Fi nal [facility] ([employer] [facility]): [address] Past Encounters 02/02/2020 Panic Disorder without Agoraphobia; Generalized Anxiety Disorder Merlene Sadler [facility]: [address] [place] [address] [address] [address], Ph. 02/02/2020 Generalized Anxiety Disorder; Psychophysiologic Insomnia; Elevated Blood- pressure Reading without Diagnosis of Hypertension; Hyperlipidemia; Body Mass Index 30+ - Obesity; Obesity Terry Quiroga RPA-C: [address] [place] [address] [address] [address], Ph. 01/28/2020 Panic Disorder without Agoraphobia; Generalized Anxiety Disorder Merlene Sadler [facility]: [address] [place] [address] [address], [place] [address], Ph. 01/20/2020 Panic Disorder without Agoraphobia; Generalized Anxiety Disorder Merlene Sadler [facility]: [address] [facility], [facility] [address], [place] [address], Ph. 01/16/2020 Panic Disorder without Agoraphobia; Generalized Anxiety Disorder Merlene Sadler [facility]: [address] [facility], [facility] [address], [place] [address], Ph. 01/08/2020 Panic Disorder without Agoraphobia Merlene Sadler [facility]: [address] [facility], [facility] [address], [place] [address], Ph. 01/06/2020 Migraine without Aura; Generalized Anxiety Disorder; Allergic Rhinitis Terry Quiroga, RPA-C: [address] [facility], [facility] [address], [place] [address], Ph. 12/31/2019 Generalized Anxiety Disorder; Tension-type Headache; Chest Pain Terry Quiroga, RPA-C: [address] [facility], [facility] [address], [place] [address], Ph. 12/26/2019 Panic Disorder without Agoraphobia; Generalized Anxiety Disorder Merlene Sadler [facility]: [address] [facility], [facility] [address], [place] [address], Ph. 12/19/2019 Panic Disorder; Generalized Anxiety Disorder Merlene Sadler [facility]: [address] [facility], [address], [place] [address], Ph. 12/18/2019 Generalized Anxiety Disorder; Panic Disorder Merlene Sadler [facility]: [address] [facility], [facility] [address], [place] [address], Ph. 12/12/2019 Panic Disorder; Generalized Anxiety Disorder Merlene Sadler [facility]: [address] [facility], [facility] [address], [place] [address], Ph. 12/11/2019 Generalized Aches and Pains; Psychophysiologic Insomnia; Acute Upper Respiratory Infection MADDISON RossC: [address] [facility], [facility] [address], [place] [address], Ph. 12/03/2019 Panic Disorder Merlene Sadler, [facility]: [address] [facility], [facility] [address], [place] [address], Ph. 11/26/2019 Panic Disorder; Generalized Anxiety Disorder Merlene Sadler, [facility]: [address] [facility], [facility] [address], [place] [address], Ph. Social History Tobacco Smoking Status Former Smoker Vaccine List None recorded. Plan of Care Reminders Provider Appointments None recorded. Lab None recorded. Referral None recorded. Procedures None recorded. Surgeries None recorded. Imaging None recorded. Vitals 02/02/2020 02:10PM ESTABLISHED [id number] Height Weight BMI Blood Pressure 72 in 224 lbs 12.8 oz 30.5 kg/m2 (1) 145/81 mm[Hg] (2) 127/82 mm[Hg] 01/06/2020 03:10PM SAME DAY 20 Height Weight BMI Blood Pressure 72 in 223 lbs 30.2 kg/m2 120/81 mm[Hg] 12/31/2019 09:10AM ESTABLISHED [id number] Height Weight BMI Blood Pressure 72 in 224 lbs 3.2 oz 30.4 kg/m2 130/86 mm[Hg ] 12/11/2019 03:50PM ESTABLISHED [id number] Height Weight BMI Blood Pressure 72 in [...]
--- OUTSIDE RECORDS SUMMARY | 2020-03-27 14:00 | CCD ---
Author Organization Unknown Address [address] [place] [address] Phone [phone] Care Team Providers Care Preparer Making Department Name Role Phone Terry Quiroga Arsh Unavailable Unavailable Allergies Code Code System Name Reaction Severity Status Onset NKDA Medications Name Status Start Date Stop Date albuterol sulfate HFA 90 mcg/actuation a erosol inhaler INHALE 2 PUFFS BY MOUTH EVERY 4 HOURS NEEDED Active Not available escitalopram 10 mg tablet TAKE 1 TABLET BY MOUTH ONCE DAILY Active Not a vailable hydroxyzine HCl 10 mg tablet TAKE 1 TO 2 TABLETS BY MOUTH EVERY 6 HOURS NEEDED Active Not available hydroxyzine HCl 25 mg tablet TAKE 1 TO 2 TABLETS BY MOUTH AT BEDTIME NEEDED FOR INSOMNIA Active Not available lorazepam 1 mg tablet TAKE 1 2 TO 1 TABLET BY MOUTH ONCE DAILY IN THE EVENING. DO NOT EXCEED 1 TABLET PER 24 HOURS Active Not available omeprazole 20 mg capsule,delayed release TAKE 1 CAPSULE BY MOUTH IN THE MORNING ON AN EMPTY STOMACH Active Not available Problems Name Status Onset Date Source Procedure by Method Unknown 09/10/2019 History Panic Disorder Unknown 09/10/2019 History Gastroesophageal Reflux Disease without Esophagitis Active 09/24/2019 History Generalized Anxiety Disorder Active 12/01/2019 Psychophysiologic Insomnia Active 12/11/2019 Panic Disorder without Agoraphobia Active 12/29/2019 Procedures None recorded. Results Lab Results Date Name Specimen Result Interpretation Description Value Range Status Address 12/16/2019 Rapid Flu (A+B) Nasopharyngeal No observation re corded. [facility] Medical: [address] [facility] [address], [place] 12/11/2019 COVID-19 RNA (SARS-CoV-2), QL, coat examiner-PCR, Respiratory Specimen Nasopharyngeal Normal Sars Cov 2 RNA not detected not detected Fi nal Associated Clinical Labs ([place] [facility]): [address] Past Encounters 12/26/2019 Panic Disorder without Agoraphobia; Generalized Anxiety Disorder Merlene Sadler [facility]: [address], [place] [address], Ph. 12/19/2019 Panic Disorder; Generalized Anxiety Disorder Merlene Sadler [facility]: [address] [facility], [facility] [address], [place] [address], Ph. 12/18/2019 Generalized Anxiety Disorder; Panic Disorder Merlene Sadler [facility]: [address] [facility], [facility] [address], [place] [address], Ph. 12/12/2019 Panic Disorder; Generalized Anxiety Disorder Merlene Sadler [facility]: [address] [facility], [facility] [address], [place] [address], Ph. 12/11/2019 Generalized Aches and Pains; Psychophysiologic Insomnia; Acute Upper Respiratory Infection Terry Quiroga, [facility]: [address] [facility], [facility] [address], [place] [address], Ph. 12/03/2019 Panic Disorder Merlene Sadler [facility]: [address] [facility], [facility] [address], [place] [address], Ph. 11/26/2019 Panic Disorder; Generalized Anxiety Disorder Merlene Sadler [facility]: [address] [facility], [facility] [address], [place] [address], Ph. Social History Tobacco Smoking Status Former Smoker Vaccine List None recorded. Plan of Care Reminders Provider Appointments None recorded. Lab None recorded. Referral None recorded. Procedures None recorded. Surgeries None recorded. Imaging None recorded. Vitals 12/11/2019 03:50PM ESTABLISHED [id number] Height Weight BMI Blood Pressure 72 in [...]
--- OUTSIDE RECORDS SUMMARY | 2020-03-27 14:00 | CCD ---
Author Organization Unknown Address [address] [place] [address] Phone [phone] Care Team Providers Care Endo Tech Name Role Phone Terry Quiroga Arsh Unavailable [...] vailable fluticasone propionate 50 mcg/actuation nasal spray,suspension [place] 1 spray every day by intranasal route [...] Lev el 314 mg/dL <150 mg/dL Final [facility]: [address] [facility] High Cholesterol Level 278 mg/dL <200 mg/ dL Final [facility]: [address] [facility] Low HDL Cholesterol 38 mg/dL >40 mg/dL F inal [facility]: [address] [facility] High LDL Cholesterol 177 mg/dL <100 mg/dL Final [facility]: [address] [facility] Normal Non-hdl-c 240 mg/dL Final [facility]: [address] [facility] High Cholesterol Risk Ratio 7.315 <5 Final [facility]: [address] [facility] 01/09/2020 C Reactive Protein, QN, Serum or Plasma Normal C Reactive Protein Quantitativ < 0.30 mg/dL 0.00-0.30 mg/dL Final [facility]: [address] [facility] 12/16/2019 Rapid Flu (A+B) Nasopharyngeal No observation re corded. [facility] Medical: [address] [facility] [address], [place] 12/11/2019 COVID-19 RNA (SARS-CoV-2), QL, continuous improvement consultant-PCR, Respiratory Specimen Nasopharyngeal Normal Sars Cov 2 RNA not detected not detected Fi nal Associated Clinical Labs ([facility]): [address] Past Encounters 01/16/2020 Panic Disorder without Agoraphobia; Generalized Anxiety Disorder Merlene Sadler [facility]: [address] [facility] [address], [place] [address], Ph. 01/08/2020 Panic Disorder without Agoraphobia Merlene Sadler [facility]: [address] [facility] [address], [place] [address], Ph. 01/06/2020 Migraine without Aura; Generalized Anxiety Disorder; Allergic Rhinitis Terry Quiroga, [facility]: [address] [facility] [address], [place] [address], Ph. 12/31/2019 Generalized Anxiety Disorder; Tension-type Headache; Chest Pain Terry Quiroga, [facility]: [address], [facility] [address], [place] [address], Ph. 12/26/2019 Panic Disorder without Agoraphobia; Generalized Anxiety Disorder Merlene Sadler [facility]: [address], [place] [address], Ph. 12/19/2019 Panic Disorder; Generalized Anxiety Disorder Merlene Sadler [facility]: [address], [place] [address], Ph. 12/18/2019 Generalized Anxiety Disorder; Panic Disorder Merlene Sadler [facility]: [address], [facility] [address], [place] [address], Ph. 12/12/2019 Panic Disorder; Generalized Anxiety Disorder Merlene Sadler [facility]: [address] [facility], [facility] [address], [place] [address], Ph. 12/11/2019 Generalized Aches and Pains; Psychophysiologic Insomnia; Acute Upper Respiratory Infection Terry Quiroga, [facility]: [address], [facility] [address], [place] [address], Ph. 12/03/2019 Panic Disorder Merlene Sadler [facility]: [address] [facility], [facility] [address], [place] [address], Ph. 11/26/2019 Panic Disorder; Generalized Anxiety Disorder Merlene Sadler [facility]: [address], [place] [address], Ph. Social History Tobacco Smoking Status Former Smoker Vaccine List None recorded. Plan of Care Reminders Provider Appointments None recorded. Lab None recorded. Referral None recorded. Procedures None recorded. Surgeries None recorded. Imaging None recorded. Vitals 01/06/2020 03:10PM SAME DAY 20 Height Weight BMI Blood Pressure 72 in 223 lbs 30.2 kg/m2 120/81 mm[Hg] 12/31/2019 09:10AM ESTABLISHED [id number] Height Weight BMI Blood Pressure 72 in 224 lbs 3.2 oz 30.4 kg/m2 130/86 mm[Hg ] 12/11/2019 03:50PM ESTABLISHED [id number] Height Weight BMI Blood Pressure 72 in [...]
--- OUTSIDE RECORDS SUMMARY | 2020-03-27 14:00 | CCD ---
Author Organization Unknown Address [address] [place] [address] Phone [phone] Care Team Providers Care Reactor Operator Name Role Phone Terry Quiroga Arsh Unavailable [...] vailable fluticasone propionate 50 mcg/actuation nasal spray,suspension [place] 1 spray every day by intranasal route [...] Lev el 314 mg/dL <150 mg/dL Final [facility]: [address] [facility] High Cholesterol Level 278 mg/dL <200 mg/ dL Final [facility]: [address] [facility] Low HDL Cholesterol 38 mg/dL >40 mg/dL F inal [facility]: [address] [facility] High LDL Cholesterol 177 mg/dL <100 mg/dL Final [facility]: [address] [facility] Normal Non-hdl-c 240 mg/dL Final [facility]: [address] [facility] High Cholesterol Risk Ratio 7.315 <5 Final [facility]: [address] [facility] 01/09/2020 C Reactive Protein, QN, Serum or Plasma Normal C Reactive Protein Quantitativ < 0.30 mg/dL 0.00-0.30 mg/dL Final [facility]: [address] [facility] 12/16/2019 Rapid Flu (A+B) Nasopharyngeal No observation re corded. [facility] Medical: [address] [facility] [address], [place] 12/11/2019 COVID-19 RNA (SARS-CoV-2), QL, private wealth advisor-PCR, Respiratory Specimen Nasopharyngeal Normal Sars Cov 2 RNA not detected not detected Fi nal Associated Clinical Labs ([facility]): [address] Past Encounters 01/08/2020 Panic Disorder without Agoraphobia Merlene Sadler [facility]: [address] [facility] [address], [place] [address], Ph. 01/06/2020 Migraine without Aura; Allergic Rhinitis Terry Quiroga, R[facility]: [address] [facility] [address], [place] [address], Ph. 12/31/2019 Generalized Anxiety Disorder Terry Quiroga, R[facility]: [address] [facility] [address], [place] [address], Ph. 12/26/2019 Panic Disorder without Agoraphobia; Generalized Anxiety Disorder Merlene Sadler [facility]: [address] [facility] [address], [place] [address], Ph. 12/19/2019 Panic Disorder; Generalized Anxiety Disorder Merlene Sadler [facility]: [address] [facility], [facility] [address], [place] [address], Ph. 12/18/2019 Generalized Anxiety Disorder; Panic Disorder Merlene Sadler [facility]: [address] [facility], [address], [place] [address], Ph. 12/12/2019 Panic Disorder; Generalized Anxiety Disorder Merlene Sadler [facility]: [address] [facility], [facility] [address], [place] [address], Ph. 12/11/2019 Generalized Aches and Pains; Psychophysiologic Insomnia; Acute Upper Respiratory Infection Terry Quiroga, [facility]: [address] [facility], [facility] [address], [place] [address], Ph. 12/03/2019 Panic Disorder Merlene Sadler [facility]: [address] [facility], [address], [place] [address], Ph. 11/26/2019 Panic Disorder; Generalized Anxiety Disorder Merlene Sadler [facility]: [address] [facility], [facility] [address], [place] [address], Ph. Social History Tobacco Smoking Status Former Smoker Vaccine List None recorded. Plan of Care Reminders Provider Appointments None recorded. Lab None recorded. Referral None recorded. Procedures None recorded. Surgeries None recorded. Imaging None recorded. Vitals 01/06/2020 03:10PM SAME DAY 20 Height Weight BMI Blood Pressure 72 in 223 lbs 30.2 kg/m2 120/81 mm[Hg] 12/31/2019 09:10AM ESTABLISHED [id number] Height Weight BMI Blood Pressure 72 in 224 lbs 3.2 oz 30.4 kg/m2 130/86 mm[Hg ] 12/11/2019 03:50PM ESTABLISHED [id number] Height Weight BMI Blood Pressure 72 in [...]
--- OUTSIDE RECORDS SUMMARY | 2020-03-27 14:00 | CCD ---
Author Organization Unknown Address [address] [place] [address] Phone [phone] Care Team Providers Care Fudge Candy Maker Name Role Phone Terry Quiroga Arsh Unavailable [...] vailable fluticasone propionate 50 mcg/actuation nasal spray,suspension [place] 1 spray every day by intranasal route [...] Lev el 314 mg/dL <150 mg/dL Final [facility]: [address] [facility] High Cholesterol Level 278 mg/dL <200 mg/ dL Final [facility]: [address] [facility] Low HDL Cholesterol 38 mg/dL >40 mg/dL F inal [facility]: [address] [facility] High LDL Cholesterol 177 mg/dL <100 mg/dL Final [facility]: [address] [facility] Normal Non-hdl-c 240 mg/dL Final [facility]: [address] [facility] High Cholesterol Risk Ratio 7.315 <5 Final [facility]: [address] [facility] 01/09/2020 C Reactive Protein, QN, Serum or Plasma Normal C Reactive Protein Quantitativ < 0.30 mg/dL 0.00-0.30 mg/dL Final [facility]: [address] [facility] 12/16/2019 Rapid Flu (A+B) Nasopharyngeal No observation re corded. [facility] Medical: [address] [facility] [address], [place] 12/11/2019 COVID-19 RNA (SARS-CoV-2), QL, cage maker machine-PCR, Respiratory Specimen Nasopharyngeal Normal Sars Cov 2 RNA not detected not detected Fi nal Associated Clinical Labs ([facility]): [address] Past Encounters 01/08/2020 Panic Disorder without Agoraphobia Merlene Sadler, [facility]: [address] [facility] [address], [place] [address], Ph. 01/06/2020 Migraine without Aura; Allergic Rhinitis Terry D Quiroga, RPA-C: [address] [facility] [address], [place] [address], Ph. 12/31/2019 Generalized Anxiety Disorder; Tension-type Headache; Chest Pain Terry D Quiroga, RPA-C: [address] [facility] [address], [place] [address], Ph. 12/26/2019 Panic Disorder without Agoraphobia; Generalized Anxiety Disorder Merlene Sadler [facility]: [address] [facility], [facility] [address], [place] [address], Ph. 12/19/2019 Panic Disorder; Generalized Anxiety Disorder Merlene Sadler [facility]: [address] [facility], [facility] [address], [place] [address], Ph. 12/18/2019 Generalized Anxiety Disorder; Panic Disorder Merlene Sadler [facility]: [address] [facility], [place] [address], Ph. 12/12/2019 Panic Disorder; Generalized Anxiety Disorder Merlene Sadler [facility]: [address] [facility], [facility] [address], [place] [address], Ph. 12/11/2019 Generalized Aches and Pains; Psychophysiologic Insomnia; Acute Upper Respiratory Infection Terry Quiroga [facility]: [address] [facility], [facility] [address], [place] [address], Ph. 12/03/2019 Panic Disorder Merlene Sadler [facility]: [address] [facility], [facility] [address], [place] [address], Ph. 11/26/2019 Panic Disorder; Generalized Anxiety Disorder Merlene Sadler [facility]: [address] [facility], [facility] [address], [place] [address], Ph. Social History Tobacco Smoking Status Former Smoker Vaccine List None recorded. Plan of Care Reminders Provider Appointments None recorded. Lab None recorded. Referral None recorded. Procedures None recorded. Surgeries None recorded. Imaging None recorded. Vitals 01/06/2020 03:10PM SAME DAY 20 Height Weight BMI Blood Pressure 72 in 223 lbs 30.2 kg/m2 120/81 mm[Hg] 12/31/2019 09:10AM ESTABLISHED [id number] Height Weight BMI Blood Pressure 72 in 224 lbs 3.2 oz 30.4 kg/m2 130/86 mm[Hg ] 12/11/2019 03:50PM ESTABLISHED [id number] Height Weight BMI Blood Pressure 72 in [...]
--- OUTSIDE RECORDS SUMMARY | 2020-03-27 14:00 | CCD | Continuity of Care Document ---
Author Cristóbal Gu MD Organization Unknown Address [place] [address] Phone [phone] Care Team Providers Care Steel Unloader Name Role Phone Terry Quiroga AUTM [phone] Problems Active Problems Provider Date Precordial pain [...] 21-22 Exercise Type/Frequency Exercises at [facility] 5 times a week Exercise Limitations None Allergies, Adverse Reactions, Alerts Description No Known Drug Allergies Medications Active Medications SIG Qnty Indications Ordering Provide r Date Atorvastatin Calcium 20mg Tablets 1 by mouth every night at bedtime 30tabs Luis Antonio Grubbs MD 01/10/[address] 1 by mouth [...] Date Facility Test Result H/L Range Note Lipid Panel 01/09/2020 [facility] nter [phone] Triglycerides Level 314 mg/dL High <150 Cholesterol Level 278 mg/dL High <200 HDL Cholesterol 38 mg/dL Low >40 LDL Cholesterol 177 mg/dL High <100 Non-HDL-C 240 mg/dL Normal Cholesterol Risk Ratio 7.315 High <5 Laboratory test finding 01/09/2020 [facility] [phone] C Reactive Protein Quantitativ < 0.30 mg/dL Normal 0.00-0.30 CMP 12/17/2019 [facility] - not interfaced (315)- - Albumin Serum/Plasma 3.7 Alt - SGPT 39 Calcium Ser/Plasma Mass/Vol 8.9 Carbon Dioxide Ser/Plasm 30 Chloride Serum/Plasma 105 Alkaline Phosphatase 80 Potassium 4.0 Protein Total 7.1 Sodium 142 Ast - Sgot 24 BUN - Urea Nitrogen 20 Glucose 83 70-100 Creatinine For GFR 1.16 Laboratory test finding 12/17/2019 [facility] - not interf aced (315)- - Magnesium Level 2.0 1.8-2.4 Thyroid Stimulating Hormone 1.360 Free T4 0.73 CBC without Differential 12/17/2019 [facility] - not inter faced (315)- - White Blood Count 8.2 4.0-10.0 Red Blood Count 5.36 4.00-5.40 Platelets 248 172-450 Hemoglobin 14.5 Hematocrit 45.1 CPK & CPK MB 10/28/2019 [facility] - not interfaced (315)- - CPK 359 CPK-MB <1.0 Laboratory test finding 10/28/2019 [facility] - not interf aced (315)- - Troponin <0.02 Procedures Date Code Description Status 01/08/2020 48969 Echocardiogram 2-D Doppler Color Completed 01/08/2020 58737 Treadmill/Pharmacological [place] ring Completed 01/07/2020 52689 ECG 12-Lead Completed Medical Devices Description No Information Available Encounters Type Date Location Provider Dx Diagnosis Office Visit 01/07/2020 1:00p Main Office Luis Antonio Grubbs MD R07.2 Precordial pain R00.2 Palpitations R94.31 Abnormal electrocardiogram [ ECG] [EKG] K21.9 Gastro-esophageal reflux dis ease without esophagitis Assessments Date Code Description Provider 01/08/2020 R00.2 Palpitations ECHO 01/08/2020 R94.31 Abnormal electrocardiogram [ECG] [EKG] ECHO 01/08/2020 R07.2 Precordial pain Stress Nuclear/R eg Treadmill 01/08/2020 R07.2 Precordial pain ECHO 01/08/2020 R94.31 Abnormal electrocardiogram [ECG] [EKG] Stress Nuclear/Reg Treadmill 01/07/2020 R07.2 Precordial pain Luis Antonio Grubbs MD 01/07/2020 R00.2 Palpitations Luis Antonio Grubbs MD 01/07/2020 R94.31 Abnormal electrocardiogram [ECG] [EKG] Luis Antonio Grubbs MD 01/07/2020 K21.9 Gastro-esophageal reflux disease without esophagitis Luis Antonio Grubbs MD Plan of Treatment Future Appointment(s):* 01/12/2020 3:00 pm - Holter/Event/Telemetry at Main Office 01/07/2020 - Luis Antonio Grubbs MD* R07.2 Precordial pain* New Xrays:* US Echocardiogram Transthoracic W Doppler And Color Flow, Scheduled: 01/08/20 * New Orders:* Treadmill, Scheduled: 01/08/20 * Recommendations:* A regular stress study has [...] * R00.2 Palpitations* New Orders:* Holter Monitor, Scheduled: 01/12/20 * Recommendations:* In light of the frequency of this symptom, we have requested a 24 hour recording of his spontaneous rhythm to objectively ascertain whether his symptoms are related to a rhythm disturbance. Again would encourage his continued avoiding all caffeinated beverages, alcohol, nicotine and [id number] decongestants, pep pills, dietary aids etc. that [...]
--- OUTSIDE RECORDS SUMMARY | 2020-03-27 14:00 | CCD ---
Author Organization Unknown Address [address] [place] [address] Phone [phone] Care Team Providers Care Prosthetic Dentist Name Role Phone Terry Quiroga Arsh Unavailable [...] vailable fluticasone propionate 50 mcg/actuation nasal spray,suspension [place] 1 spray every day by intranasal route [...] Lev el 314 mg/dL <150 mg/dL Final [facility]: 83 0 [facility] High Cholesterol Level 278 mg/dL <200 mg/ dL Final [facility]: [address] [facility] Low HDL Cholesterol 38 mg/dL >40 mg/dL F inal [facility]: [address] [facility] High LDL Cholesterol 177 mg/dL <100 mg/dL Final [facility]: [address] [facility] Normal Non-hdl-c 240 mg/dL Final [facility]: [address] [facility] High Cholesterol Risk Ratio 7.315 <5 Final [facility]: [address] [facility] 01/09/2020 C Reactive Protein, QN, Serum or Plasma Normal C Reactive Protein Quantitativ < 0.30 mg/dL 0.00-0.30 mg/dL Final [facility]: [address] [facility] 12/16/2019 Rapid Flu (A+B) Nasopharyngeal No observation re corded. [facility]: [address] [facility] [address], [place] 12/11/2019 COVID-19 RNA (SARS-CoV-2), QL, orthotist/prosthetist-PCR, Respiratory Specimen Nasopharyngeal Normal Sars Cov 2 RNA not detected not detected Fi nal [facility] [facility]): [address] Past Encounters 01/20/2020 Panic Disorder without Agoraphobia; Generalized Anxiety Disorder Merlene Sadler [facility]: [address] [facility] [address], [place] [address], Ph. 01/16/2020 Panic Disorder without Agoraphobia; Generalized Anxiety Disorder Merlene Sadler [facility]: [address] [facility] [address], [place] [address], Ph. 01/08/2020 Panic Disorder without Agoraphobia Merlene Sadler [facility]: [address] [facility], [facility] [address], [place] [address], Ph. 01/06/2020 Migraine without Aura; Generalized Anxiety Disorder; Allergic Rhinitis Terry Quiroga, RPA-C: [address] [facility], [facility] [address], [place] [address], Ph. 12/31/2019 Generalized Anxiety Disorder; Tension-type Headache; Chest Pain Terry Quiroga, RPA-C: [address] [facility], [facility] [address], [place] [address], Ph. 12/26/2019 Panic Disorder without Agoraphobia; Generalized Anxiety Disorder Merlene Sadler [facility]: [address] [facility], [facility] [address], [place] [address], Ph. 12/19/2019 Panic Disorder; Generalized Anxiety Disorder Merlene Sadler [facility]: [address] [facility], [facility] [address], [place] [address], Ph. 12/18/2019 Generalized Anxiety Disorder; Panic Disorder Merlene Sadler [facility]: [address] [facility], [facility] [address], [place] [address], Ph. 12/12/2019 Panic Disorder; Generalized Anxiety Disorder Merlene Sadler [facility]: [address] [facility], [facility] [address], [place] [address], Ph. 12/11/2019 Generalized Aches and Pains; Psychophysiologic Insomnia; Acute Upper Respiratory Infection Terry Quiroga, RPA-C: [address] [facility], [facility] [address], [place] [address], Ph. 12/03/2019 Panic Disorder Merlene Sadler [facility]: [address] [facility], [facility] [address], [place] [address], Ph. 11/26/2019 Panic Disorder; Generalized Anxiety Disorder Merlene Sadler [facility]: [address] [facility], [facility] [address], [place] [address], Ph. Social History Tobacco Smoking Status Former Smoker Vaccine List None recorded. Plan of Care Reminders Provider Appointments None recorded. Lab None recorded. Referral None recorded. Procedures None recorded. Surgeries None recorded. Imaging None recorded. Vitals 01/06/2020 03:10PM SAME DAY 20 Height Weight BMI Blood Pressure 72 in 223 lbs 30.2 kg/m2 120/81 mm[Hg] 12/31/2019 09:10AM ESTABLISHED [id number] Height Weight BMI Blood Pressure 72 in 224 lbs 3.2 oz 30.4 kg/m2 130/86 mm[Hg ] 12/11/2019 03:50PM ESTABLISHED [id number] Height Weight BMI Blood Pressure 72 in [...]
--- OUTSIDE RECORDS SUMMARY | 2020-03-27 14:02 | CCD ---
Author Author [facility] Organization [facility] Address Unknown Phone Unavailable Care Team Providers Care Intelligence Officer Name Role Phone QUIROGA, ISRAEL TERRY RPA-C Unavailable Unavailable QUIROGA, ISRAEL TERRY RPA-C Unavailable Unavailable QUIROGA, ISRAEL TERRY RPA-C Unavailable Unavailable QUIROGA, ISRAEL TERRY RPA-C Unavailable Unavailable QUIROGA, ISRAEL TERRY RPA-C Unavailable Unavailable QUIROGA, ISRAEL TERRY RPA-C Unavailable Unavailable QUIROGA, ISRAEL TERRY RPA-C Unavailable Unavailable QUIROGA, ISRAEL TERRY RPA-C Unavailable Unavailable QUIROGA, ISRAEL TERRY RPA-C Unavailable Unavailable QUIROGA, ISRAEL TERRY RPA-C Unavailable Unavailable QUIROGA, ISRAEL TERRY RPA-C Unavailable Unavailable QUIROGA, ISRAEL TERRY RPA-C Unavailable Unavailable QUIROGA, ISRAEL TERRY RPA-C Unavailable Unavailable QUIROGA, ISRAEL TERRY RPA-C Unavailable Unavailable QUIROGA, ISRAEL TERRY RPA-C Unavailable Unavailable QIUROGA, ISRAEL TERRY RPA-C Unavailable Unavailable QUIROGA, ISRAEL TERRY RPA-C Unavailable Unavailable QUIROGA, ISRAEL TERRY RPA-C Unavailable Unavailable QUIROGA, ISRAEL TERRY RPA-C Unavailable Unavailable QUIROGA, ISRAEL TERRY RPA-C Unavailable Unavailable QUIROGA, ISRAEL TERRY RPA-C Unavailable Unavailable QUIROGA, ISRAEL TERRY RPA-C Unavailable Unavailable QUIROGA, ISRAEL TERRY RPA-C Unavailable Unavailable QUIROGA, ISRAEL TERRY RPA-C Unavailable Unavailable QUIROGA, ISRAEL TERRY RPA-C Unavailable Unavailable QUIROGA, ISRAEL TERRY RPA-C Unavailable Unavailable QUIROGA, ISRAEL TERRY RPA-C Unavailable Unavailable QUIROGA, ISRAEL TERRY RPA-C Unavailable Unavailable QUIROGA, ISRAEL TERRY RPA-C Unavailable Unavailable QUIROGA, ISRAEL TERRY RPA-C Unavailable Unavailable QUIROGA, ISRAEL TERRY RPA-C Unavailable Unavailable QUIROGA, ISRAEL TERRY RPA-C Unavailable Unavailable QUIROGA, ISRAEL TERRY RPA-C Unavailable Unavailable QUIROGA, ISRAEL TERRY RPA-C Unavailable Unavailable QUIROGA, ISRAEL TERRY RPA-C Unavailable Unavailable QUIROGA, ISRAEL TERRY RPA-C Unavailable Unavailable QUIROGA, ISRAEL TERRY RPA-C Unavailable Unavailable QUIROGA, ISRAEL TERRY RPA-C Unavailable Unavailable QUIROGA, ISRAEL TERRY RPA-C Unavailable Unavailable PupilloMerlene Unavailable [phone] Ludmila SHELLEY MD Unavailable Unavailable Ludmila SHELLEY MD Unavailable Unavailable Ludmila SHELLEY MD Unavailable Unavailable Ludmila SHELLEY MD Unavailable Unavailable Ludmila SHELLEY MD Unavailable Unavailable Ludmila SHELLEY MD Unavailable Unavailable Ludmila SHELLEY MD Unavailable Unavailable Ludmila SHELLEY MD Unavailable Unavailable Ludmila SHELLEY MD Unavailable Unavailable Ludmila SHELLEY MD Unavailable Unavailable Ludmila SHELLEY MD Unavailable Unavailable Ludmila SHELLEY MD Unavailable Unavailable Ludmila SHELLEY MD Unavailable Unavailable Ludmila SHELLEY MD Unavailable Unavailable Ludmila SHELLEY MD Unavailable Unavailable Ludmila SHELLEY MD Unavailable Unavailable Ludmila SHELLEY MD Unavailable Unavailable Ludmila SHELLEY MD Unavailable Unavailable Ludmila SHELLEY MD Unavailable Unavailable Ludmila SHELLEY MD Unavailable Unavailable Ludmila SHELLEY MD Unavailable Unavailable Ludmila SHELLEY MD Unavailable Unavailable Ludmila SHELLEY MD Unavailable Unavailable Ludmila SHELLEY MD Unavailable Unavailable Ludmila SHELLEY MD Unavailable Unavailable Ludmila SHELLEY MD Unavailable Unavailable Ludmila SHELLEY MD Unavailable Unavailable Ludmila SHELLEY MD Unavailable Unavailable Ludmila SHELLEY MD Unavailable Unavailable Ludmila SHELLEY MD Unavailable Unavailable Ludmila SHELLEY MD Unavailable Unavailable Ludmila SHELLEY MD Unavailable Unavailable Ludmila SHELLEY MD Unavailable Unavailable Ludmila SHELLEY MD Unavailable Unavailable Ludmila SHELLEY MD Unavailable Unavailable Ludmila SHELLEY MD Unavailable Unavailable Ludmila SHELLEY MD Unavailable Unavailable Ludmila SHELLEY MD Unavailable Unavailable Ludmila SHELLEY MD Unavailable Unavailable Ludmila SHELLEY MD Unavailable Unavailable Ludmila SHELLEY MD Unavailable Unavailable Ludmila SHELLEY MD Unavailable Unavailable Ludmila SHELLEY MD Unavailable Unavailable Ludmila SHELLEY MD Unavailable Unavailable Ludmila SHELLEY MD Unavailable Unavailable Ludmila SHELLEY MD Unavailable Unavailable Ludmila SHELLEY MD Unavailable Unavailable Ludmila SHELLEY MD Unavailable Unavailable Ludmila SHELLEY MD Unavailable Unavailable Ludmila SHELLEY MD Unavailable Unavailable Ludmila SHELLEY MD Unavailable Unavailable Ludmila SHELLEY MD Unavailable Unavailable Ludmila SHELLEY MD Unavailable Unavailable Ludmila SHELLEY MD Unavailable Unavailable Ludmila SHELLEY MD Unavailable Unavailable Ludmila SHELLEY MD Unavailable Unavailable Ludmila SHELLEY MD Unavailable Unavailable Ludmila SHELLEY MD Unavailable Unavailable Ludmila SHELLEY MD Unavailable Unavailable Ludmila SHELLEY MD Unavailable Unavailable Ludmila SHELLEY MD Unavailable Unavailable Ludmila SHELLEY MD Unavailable Unavailable Ludmila SHELLEY MD Unavailable Unavailable Ludmila SHELLEY MD Unavailable Unavailable Ludmila SHELLEY MD Unavailable Unavailable Ludmila SHELLEY MD Unavailable Unavailable Ludmila SHELLEY MD Unavailable Unavailable Ludmila SHELLEY MD Unavailable Unavailable Ludmila SHELLEY MD Unavailable Unavailable Ludmila SHELLEY MD Unavailable Unavailable Ludmila SHELLEY MD Unavailable Unavailable Ludmila SHELLEY MD Unavailable Unavailable Ludmila SHELLEY MD Unavailable Unavailable Ludmila SHELLEY MD Unavailable Unavailable Ludmila SHELLEY MD Unavailable Unavailable Ludmila SHELLEY MD Unavailable Unavailable Ludmila SHELLEY MD Unavailable Unavailable Ludmila SHELLEY MD Unavailable Unavailable Ludmila SHELLEY MD Unavailable Unavailable Ludmila SHELLEY MD Unavailable Unavailable Ludmila SHELLEY MD Unavailable Unavailable Ludmila SHELLEY MD Unavailable Unavailable Ludmila SHELLEY MD Unavailable Unavailable LOVEShilpa Gibbons MD Unavailable Unavailable LOVEShilpa Gibbons MD Unavailable Unavailable LOVEShilpa Gibbons MD Unavailable Unavailable LOVEShilpa Gibbons MD Unavailable Unavailable LOVEShilpa Gibbons MD Unavailable Unavailable Shilpa LOVE MD Unavailable Unavailable Shilpa LOVE MD Unavailable Unavailable Shilpa LOVE MD Unavailable Unavailable Shilpa LOVE MD Unavailable Unavailable Shilpa LOVE MD Unavailable Unavailable Shilpa LOVE MD Unavailable Unavailable LOVEShilpa Gibbons MD Unavailable Unavailable Shilpa LOVE MD Unavailable Unavailable LOVEShilpa Gibbons MD Unavailable Unavailable Shilpa LOVE MD Unavailable Unavailable Shilpa LOVE MD Unavailable Unavailable LOVEShilpa Gibbons MD Unavailable Unavailable Shilpa LOVE MD Unavailable Unavailable Shilpa LOVE MD Unavailable Unavailable Shilpa LOVE MD Unavailable Unavailable Shilpa LOVE MD Unavailable Unavailable Shilpa LOVE MD Unavailable Unavailable Shilpa LOVE MD Unavailable Unavailable Shilpa LOVE MD Unavailable Unavailable Shilpa LOVE MD Unavailable Unavailable Shilpa LOVE MD Unavailable Unavailable Shilpa LOVE MD Unavailable Unavailable Shilpa LOVE MD Unavailable Unavailable Shilpa LOVE MD Unavailable Unavailable Shilpa LOVE MD Unavailable Unavailable Shilpa LOVE MD Unavailable Unavailable Shilpa LOVE MD Unavailable Unavailable Shilpa LOVE MD Unavailable Unavailable Shilpa LOVE MD Unavailable Unavailable Shilpa LOVE MD Unavailable Unavailable Sihlpa LOVE MD Unavailable Unavailable Shilpa LOVE MD Unavailable Unavailable Shilpa LOVE MD Unavailable Unavailable Shilpa LOVE MD Unavailable Unavailable Shilpa LOVE MD Unavailable Unavailable Shilpa LOVE MD Unavailable Unavailable Shilpa LOVE MD Unavailable Unavailable Shilpa LOVE MD Unavailable Unavailable Shilpa LOVE MD Unavailable Unavailable Shilpa LOVE MD Unavailable Unavailable Shilpa LOVE MD Unavailable Unavailable LOVEShilpa Gibbons MD Unavailable Unavailable LOVEShilpa Gibbons MD Unavailable Unavailable LOVEShilpa Gibbons MD Unavailable Unavailable LOVEShilpa Gibbons MD Unavailable Unavailable LOVEShilpa Gibbons MD Unavailable Unavailable LOVEShilpa Gibbons MD Unavailable Unavailable LOVEShilpa Gibbons MD Unavailable Unavailable LOVEShilpa Gibbosn MD Unavailable Unavailable LOVE, Shilpa CULVER MD Unavailable Unavailable LOVE, Shilpa CULVER MD Unavailable Unavailable LOVE, Shilpa CULVER MD Unavailable Unavailable QUIROGA, ISRAEL TERRY RPA-C Unavailable Unavailable QUIROGA, ISRAEL TERRY RPA-C Unavailable Unavailable QUIROGA, ISRAEL TERRY RPA-C Unavailable Unavailable QUIROGA, ISRAEL TERRY RPA-C Unavailable Unavailable QUIROGA, ISRAEL TERRY RPA-C Unavailable Unavailable QUIROGA, ISRAEL TERRY RPA-C Unavailable Unavailable QUIROGA, ISRAEL TERRY RPA-C Unavailable Unavailable QUIROGA, ISRAEL TERRY RPA-C Unavailable Unavailable QUIROGA, ISRAEL TERRY RPA-C Unavailable Unavailable QUIROGA, ISRAEL TERRY RPA-C Unavailable Unavailable QUIROGA, ISRAEL TERRY RPA-C Unavailable Unavailable QUIROGA, ISRAEL TERRY RPA-C Unavailable Unavailable QUIROGA, ISRAEL TERRY RPA-C Unavailable Unavailable QUIROGA, ISRAEL TERRY RPA-C Unavailable Unavailable QUIROGA, ISRAEL TERRY RPA-C Unavailable Unavailable QUIROGA, ISRAEL TERRY RPA-C Unavailable Unavailable QUIROGA, ISRAEL TERRY RPA-C Unavailable Unavailable QUIROGA, ISRAEL TERRY RPA-C Unavailable Unavailable QUIROGA, ISRAEL TERRY RPA-C Unavailable Unavailable QUIROGA, ISRAEL TERRY RPA-C Unavailable Unavailable QUIROGA, ISRAEL TERRY RPA-C Unavailable Unavailable QUIROGA, ISRAEL TERRY RPA-C Unavailable Unavailable QUIROGA, ISRAEL TERRY RPA-C Unavailable Unavailable QUIROGA, ISRAEL TERRY RPA-C Unavailable Unavailable QUIROGA, ISRAEL TERRY RPA-C Unavailable Unavailable QUIROGA, ISRAEL TERRY RPA-C Unavailable Unavailable QUIROGA, ISRAEL TERRY RPA-C Unavailable Unavailable QUIROGA, ISRAEL TERRY RPA-C Unavailable Unavailable QUIROGA, ISRAEL TERRY RPA-C Unavailable Unavailable QUIROGA, ISRAEL TERRY RPA-C Unavailable Unavailable QUIROGA, ISRAEL TERRY RPA-C Unavailable Unavailable QUIROGA, ISRAEL TERRY RPA-C Unavailable Unavailable QUIROGA, ISRAEL TERRY RPA-C Unavailable Unavailable QUIROGA, ISRAEL TERRY RPA-C Unavailable Unavailable QUIROGA, ISRAEL TERRY RPA-C Unavailable Unavailable QUIROGA, ISRAEL TERRY RPA-C Unavailable Unavailable QUIROGA, ISRAEL TERRY RPA-C Unavailable Unavailable QUIROGA, ISRAEL TERRY RPA-C Unavailable Unavailable QUIROGA, ISRAEL TERRY RPA-C Unavailable Unavailable [facility], [facility] QUIROGA [facility] TERRY Unavailable Unavailable Re-disclosure Warning The records that you are about to access may contain information from federally-assisted alcohol or drug abuse programs. If such information is present, then the following federally mandated warning applies: This information has been disclosed to you from records protected by federal confidentiality rules (42 CFR part 2). The federal rules prohibit you from making any further disclosure of this information unless further disclosure is expressly permitted by the written consent of the person to whom it pertains or as otherwise permitted by 42 CFR part 2. A general authorization for the release of medical or other information is NOT sufficient for this purpose. The Federal rules restrict any use of the information to criminally investigate or prosecute any alcohol or drug abuse patient.The records that you are about to access may contain highly sensitive health information, the redisclosure of which is protected by Article 27-F of the [facility] Public Health law. If you continue you may have access to information: Regarding HIV / AIDS; Provided by facilities licensed or operated by the [facility] Office of Mental Health; or Provided by the [facility] Office for People With Developmental Disabilities. If such information is present, then the following [facility] mandated warning applies: This information has been disclosed to you from confidential records which are protected by state law. State law prohibits you from making any further disclosure of this information without the specific written consent of the person to whom it pertains, or as otherwise permitted by law. Any unauthorized further disclosure in violation of state law may result in a fine or penitentiary sentence or both. A general authorization for the release of medical or other information is NOT sufficient authorization for further disc losure. Allergies and Adverse Reactions Type Description Substance Reaction Status Data Source(s ) Allergy to substance Allergy to substance Allergy to substance [facility] ([facility]) Allergy to substance Allergy to substance Allergy to substance [facility] ([facility]) Encounters Encounter Providers Location Date Indications Data Source(s ) [place] [facility] [place] [address], [place] [address], Ph. Attender: Merlnee Sadler [facility] Medical 03/05/2020 12:00:00 AM EST HILDA ([facility]) Merlene Sadler, [facility]: [address], [place] [address], Ph. Attender: Merlene Sadler [facility] Medical 02/20/2020 12:00:00 AM EST [facility]DA ([facility]) Merlene Sadler, [facility]: [address], [place] [address], Ph. Attender: Merlene Sadler [facility] Medical 02/20/2020 12:00:00 AM EST [facility]DA ([facility]) Terry Quiroga R[facility]: [address], [place] [address], Ph. Attender: TERRY QUIROGA RPA-C [facility] Medical 02/02/2020 12:00:00 AM EST HILDA ([facility]) Merlene Sadler, [facility]: [address], [place] [address], Ph. Attender: Merlene Sadler [facility] Medical 02/02/2020 12:00:00 AM EST HILDA ([facility]) Terry Quiroga RPA-C: [address], [place] [address], Ph. Attender: TERRY QUIROGA RPA-C [facility] Medical 02/02/2020 12:00:00 AM EST HILDA ([facility]) Merlene Sadler, [facility]: [address], [place] [address], Ph. Attender: Merlene Sadler [facility] Medical 02/02/2020 12:00:00 AM EST HILDA ([facility]) Terry Quiroga R[facility]C: [address], [place] [address], Ph. Attender: TERRY QUIROGA RPA-C [facility] Medical 02/02/2020 12:00:00 AM EST HILDA ([facility]) Merlene Davisjeffrey, [facility]: [address], [place] [address], Ph. Attender: Merlene Ryanjeffrey [facility] Medical 02/02/2020 12:00:00 AM EST HILDA ([facility]) Terry Quiroga RPA-C: [address], [place] [address], Ph. Attender: TERRY MONCADA [facility] Medical 02/02/2020 12:00:00 AM EST HILDA ([facility]) Merlene Davisjeffrey, [facility]: [address], [place] [address], Ph. Attender: Merlene Davisjeffrey [facility] Medical 02/02/2020 12:00:00 AM EST HILDA ([facility]) Merlene Ryanjeffrey, [facility]: [address], [place] [address], Ph. Attender: Merlene Sadler [facility] Medical 01/28/2020 12:00:00 AM EST HILDA ([facility]) Merlene Sadler, [facility]: [address], [place] [address], Ph. Attender: Merlene Sadler [facility] Medical 01/28/2020 12:00:00 AM EST HILDA ([facility]) Merlene Sadler, [facility]: [address], [place] [address], Ph. Attender: Merlene Sadler [facility] Medical 01/28/2020 12:00:00 AM EST HILDA ([facility]) Merlene Sadler, [facility]: [address], [place] [address], Ph. Attender: Merlene Sadler [facility] Medical 01/28/2020 12:00:00 AM EST HILDA ([facility]) Merlene Sadler, [facility]: [address], [place] [address], Ph. Attender: Merlene Sadler [facility] Medical 01/28/2020 12:00:00 AM EST HILDA ([facility]) Merlene Sadler, [facility]: [address], [place] [address], Ph. Attender: Merlene Sadler [facility] Medical 01/20/2020 12:00:00 AM EST HILDA ([facility]) Merlene Sadler, [facility]: [address], [place] [address], Ph. Attender: Merlene Sadler [facility] Medical 01/20/2020 12:00:00 AM EST HILDA ([facility]) Merlene Sadler, [facility]: [address], [place] [address], Ph. Attender: Merlene Sadler [facility] Medical 01/20/2020 12:00:00 AM EST HILDA ([facility]) Merlene Sadler, [facility]: [address], [place] [address], Ph. Attender: Merlene Sadler [facility] Medical 01/20/2020 12:00:00 AM EST HILDA ([facility]) Merlene Sadler, [facility]: [address], [place] [address], Ph. Attender: Merlene Sadler [facility] Medical 01/20/2020 12:00:00 AM EST HILDA ([facility]) Merlene Sadler, [facility]: [address], [place] [address], Ph. Attender: Merlene Sadler [facility] Medical 01/20/2020 12:00:00 AM EST HILDA ([facility]) Merlene Sadler, [facility]: [address], [place] [address], Ph. Attender: Merlene Sadler [facility] Medical 01/16/2020 12:00:00 AM EST HILDA ([facility]) Merlene Sadler, [facility]: [address], [place] [address], Ph. Attender: Merlene Sadler [facility] Medical 01/16/2020 12:00:00 AM EST HILDA ([facility]) Merlene Sadler, [facility]: [address], [place] [address], Ph. Attender: Merlene Sadler [facility] Medical 01/16/2020 12:00:00 AM EST HILDA ([facility]) Merlene Sadler [facility]: [address], [place] [address], Ph. Attender: Merlene Sadler [facility] Medical 01/16/2020 12:00:00 AM EST HILDA ([facility]) Merlene Sadler, [facility]: [address], [place] [address], Ph. Attender: Merlene Sadler [facility] Medical 01/16/2020 12:00:00 AM EST HILDA ([facility]) [place]lene Sadler [facility] [address], [place] [address], Ph. Attender: Merlene Sadler [facility] Medical 01/16/2020 12:00:00 AM EST HILDA ([facility]) Merlene Sadler [facility]: [address], [place] [address], Ph. Attender: Merlene Sadler [facility] Medical 01/16/2020 12:00:00 AM EST HILDA ([facility]) Merlene Sadler [facility]: [address], [place] [address], Ph. Attender: Merlene Sadler [facility] Medical 01/08/2020 12:00:00 AM EST HILDA ([facility]) Merlene Sadler, [facility]: [address], [place] [address], Ph. Attender: Merlene Sadler [facility] Medical 01/08/2020 12:00:00 AM EST HILDA ([facility]) Merlene Sadler, [facility] [address], [place] [address], Ph. Attender: Merlene Sadler [facility] Medical 01/08/2020 12:00:00 AM EST HILDA ([facility]) Merlene Sadler [facility]: [address], [place] [address], Ph. Attender: Merlene Sadler [facility] Medical 01/08/2020 12:00:00 AM EST HILDA ([facility]) Merlene Sadler, [facility]: [address], [place] [address], Ph. Attender: Merlene Sadler [facility] Medical 01/08/2020 12:00:00 AM EST HILDA ([facility]) Merlene Sadler, [facility] [address], [place] [address], Ph. Attender: Merlene Sadler [facility] Medical 01/08/2020 12:00:00 AM EST HILDA ([facility]) Merlene Sadler [facility] [address], [place] [address], Ph. Attender: Merlene Sadler [facility] Medical 01/08/2020 12:00:00 AM EST HILDA ([facility]) Merlene Sadler, [facility] [address], [place] [address], Ph. Attender: Merlene Sadler [facility] Medical 01/08/2020 12:00:00 AM EST HILDA ([facility]) Merlene Sadler, [facility]: [address], [place] [address], Ph. Attender: Merlene Sadler [facility] Medical 01/08/2020 12:00:00 AM EST HILDA ([facility]) Merlene Sadler, [facility]: [address], [place] [address], Ph. Attender: Merlene Sadler [facility] Medical 01/08/2020 12:00:00 AM EST HILDA ([facility]) Outpatient Attender: PALOMO LOVE MD Main Office 01/07/2020 12:00:00 PM EVE MULTANI ([facility]) Terry Quiroga RPA-C: [address], [place] [address], Ph. Attender: TERRY QUIROGA RPA-C [facility] Medical 01/06/2020 12:00:00 AM EST HILDA ([facility]) Terry Quiroga RPA-C: [address], [place] [address], Ph. Attender: TERRY QUIROGA RPA-C [facility] Medical 01/06/2020 12:00:00 AM EST HILDA ([facility]) Terry Quiroga RPA-C: [address], [place] [address], Ph. Attender: TERRY QUIROGA RPA-C [facility] Medical 01/06/2020 12:00:00 AM EST HILDA ([facility]) Terry Quiroga RPA-C: [address], [place] [address], Ph. Attender: TERRY QUIROGA RPA-C [facility] Medical 01/06/2020 12:00:00 AM EST HILDA ([facility]) Terry Quiroga RPA-C: [address], [place] [address], Ph. Attender: TERRY QUIROGA RPA-C [facility] Medical 01/06/2020 12:00:00 AM EST HILDA ([facility]) Terry Quiroga, R[facility]C: [address], [place] [address], Ph. Attender: TERRY QUIROGA RPA-C [facility] Medical 01/06/2020 12:00:00 AM EST HILDA ([facility]) Terry Quiroga RPA-C: [address], [place] [address], Ph. Attender: TERRY QUIROGA RPA-C [facility] Medical 01/06/2020 12:00:00 AM EST HILDA ([facility]) Terry Quiroga RPA-C: [address], [place] [address], Ph. Attender: TERRY QUIROGA RPA-C [facility] Medical 01/06/2020 12:00:00 AM EST HILDA ([facility]) Terry Quiroga, RPA-C: [address], [place] [address], Ph. Attender: TERRY QUIROGA RPA-C [facility] Medical 01/06/2020 12:00:00 AM EST HILDA ([facility]) Terry Quiroga RPA-C: [address], [place] [address], Ph. Attender: TERRY QUIROGA RPA-C [facility] Medical 01/06/2020 12:00:00 AM EST HILDA ([facility]) Terry Quiroga RPA-C: [address], [place] [address], Ph. Attender: TERRY QUIROGA RPA-C [facility] Medical 12/31/2019 12:00:00 AM EST HILDA ([facility]) Terry Quiroga RPA-C: [address], [place] [address], Ph. Attender: TERRY QUIROGA RPA-C [facility] Medical 12/31/2019 12:00:00 AM EST HILDA ([facility]) Terry Quiroga RPA-C: [address], [place] [address], Ph. Attender: TERRY QUIROGA RPA-C [facility] Medical 12/31/2019 12:00:00 AM EST HILDA ([facility]) Terry Quiroga RPA-C: [address], [place] [address], Ph. Attender: TERRY QUIROGA RPA-C [facility] Medical 12/31/2019 12:00:00 AM EST HILDA ([facility]) Terry Quiroga RPA-C: [address], [place] [address], Ph. Attender: TERRY QUIROGA RPA-C [facility] Medical 12/31/2019 12:00:00 AM EST HILDA ([facility]) Terry Quiroga RPA-C: [address], [place] [address], Ph. Attender: TERRY QUIROGA RPA-C [facility] Medical 12/31/2019 12:00:00 AM EST HILDA ([facility]) Terry Quiroga RPA-C: [address], [place] [address], Ph. Attender: TERRY QUIROGA RPA-C [facility] Medical 12/31/2019 12:00:00 AM EST HILDA ([facility]) Terry Quiroga, RPA-C: [address], [place] [address], Ph. Attender: TERRY QUIROGA RPA-C [facility] Medical 12/31/2019 12:00:00 AM EST HILDA ([facility]) Terry Quiroga RPA-C: [address], [place] [address], Ph. Attender: TERRY QUIROGA RPA-C [facility] Medical 12/31/2019 12:00:00 AM EST HILDA ([facility]) Terry Quiroga RPA-C: [address], [place] [address], Ph. Attender: TERRY QUIROGA RPA-C [facility] Medical 12/31/2019 12:00:00 AM EST HILDA ([facility]) Merlene Sadler, [employer]: [address], [place] [address], Ph. Attender: Merlene Sadler [facility] Medical 12/26/2019 12:00:00 AM EST HILDA ([facility]) Merlene Sadler, [facility]: [address], [place] [address], Ph. Attender: Merlene Sadler [facility] Medical 12/26/2019 12:00:00 AM EST HILDA ([facility]) Merlene Sadler [employer]: [address], [place] [address], Ph. Attender: Merlene Sadler [facility] Medical 12/26/2019 12:00:00 AM EST HILDA ([facility]) Merlene Sadler, [employer]: [address], [place] [address], Ph. Attender: Merlene Sadler [facility] Medical 12/26/2019 12:00:00 AM EST HILDA ([facility]) Merlene Sadler, [facility]: [address], [place] [address], Ph. Attender: Merlene Sadler [facility] Medical 12/26/2019 12:00:00 AM EST HILDA ([facility]) Merlene Sadler, [facility]: [address], [place] [address], Ph. Attender: Merlene Sadler [facility] Medical 12/26/2019 12:00:00 AM EST HILDA ([facility]) Merlene Sadler, [facility]: [address], [place] [address], Ph. Attender: Merlene Sadler [facility] Medical 12/26/2019 12:00:00 AM EST HILDA ([facility]) Merlene Sadler, [facility]: [address], [place] [address], Ph. Attender: Merlene Sadler [facility] Medical 12/26/2019 12:00:00 AM EST HILDA ([facility]) Merlene Sadler, [employer]: [address], [place] [address], Ph. Attender: Merlene Sadler [facility] Medical 12/26/2019 12:00:00 AM EST HILDA ([facility]) Merlene Sadler, [employer]: [address], [place] [address], Ph. Attender: Merlene Sadler [facility] Medical 12/26/2019 12:00:00 AM EST HILDA ([facility]) Merlene Sadler, [employer]: [address], [place] [address], Ph. Attender: Merlene Sadler [facility] Medical 12/26/2019 12:00:00 AM EST HILDA ([facility]) Merlene Sadler, [employer]: [address], [place] [address], Ph. Attender: Merlene Sadler [facility] Medical 12/19/2019 12:00:00 AM EST HILDA ([facility]) Merlene Sadler, [employer]: [address], [place] [address], Ph. Attender: Merlene Sadler [facility] Medical 12/19/2019 12:00:00 AM EST HILDA ([facility]) Merlene Sadler, [employer]: [address], [place] [address], Ph. Attender: Merlene Sadler [facility] Medical 12/19/2019 12:00:00 AM EST HILDA ([facility]) Merlene Sadler, [employer]: [address], [place] [address], Ph. Attender: Merlene Sadler [facility] Medical 12/19/2019 12:00:00 AM EST HILDA ([facility]) Merlene Sadler, [employer]: [address], [place] [address], Ph. Attender: Merlene Sadler [facility] Medical 12/19/2019 12:00:00 AM EST HILDA ([facility]) Merlene Sadler, [employer]: [address], [place] [address], Ph. Attender: Merlene Sadler [facility] Medical 12/19/2019 12:00:00 AM EST HILDA ([facility]) Merlene Sadler, [employer]: [address], [place] [address], Ph. Attender: Merlene Sadler [facility] Medical 12/19/2019 12:00:00 AM EST HILDA ([facility]) Merlene Sadler, [employer]: [address], [place] [address], Ph. Attender: Merlene Sadler [facility] Medical 12/19/2019 12:00:00 AM EST HILDA ([facility]) Merlene Sadler, [employer]: [address], [place] [address], Ph. Attender: Merlene Sadler [facility] Medical 12/19/2019 12:00:00 AM EST HILDA ([facility]) Merlene Sadler, [employer]: [address], [place] [address], Ph. Attender: Merlene Sadler [facility] Medical 12/19/2019 12:00:00 AM EST HILDA ([facility]) Merlene Sadler, [employer]: [address], [place] [address], Ph. Attender: Merlene Sadler [facility] Medical 12/19/2019 12:00:00 AM EST HILDA ([facility]) Merlene Sadler [employer]: [address], [place] [address], Ph. Attender: Merlene Sadler [facility] Medical 12/19/2019 12:00:00 AM EST HILDA ([facility]) Merlene Sadlre, [employer]: [address], [place] [address], Ph. Attender: Merlene Sadler [facility] Medical 12/19/2019 12:00:00 AM EST HILDA ([facility]) Merlene Sadler [employer]: [address], [place] [address], Ph. Attender: Merlene Sadler [facility] Medical 12/18/2019 12:00:00 AM EST HILDA ([facility]) Merlene Sadler, [employer]: [address], [place] [address], Ph. Attender: Merlene Sadler [facility] Medical 12/18/2019 12:00:00 AM EST HILDA ([facility]) Merlene Sadler, [facility]: [address], [place] [address], Ph. Attender: Merlene Sadler [facility] Medical 12/18/2019 12:00:00 AM EST HILDA ([facility]) Merlene Sadler, [employer]: [address], [place] [address], Ph. Attender: Merlene Sadler [facility] Medical 12/18/2019 12:00:00 AM EST HILDA ([facility]) Merlene Sadler, [facility]: [address], [place] [address], Ph. Attender: Merlene Sadler [facility] Medical 12/18/2019 12:00:00 AM EST HILDA ([facility]) Merlene Sadler, [facility]: [address], [place] [address], Ph. Attender: Merlene Sadler [facility] Medical 12/18/2019 12:00:00 AM EST HILDA ([facility]) Merlene Sadler, [facility]: [address], [place] [address], Ph. Attender: Merlene Sadler [facility] Medical 12/18/2019 12:00:00 AM EST HILDA ([facility]) Merlene Sadler, [facility]: [address], [place] [address], Ph. Attender: Merlene Sadler [facility] Medical 12/18/2019 12:00:00 AM EST HILDA ([facility]) Merlene Sadler, [employer]: [address], [place] [address], Ph. Attender: Merlene Sadler [facility] Medical 12/18/2019 12:00:00 AM EST HILDA ([facility]) Merlene Sadler, [employer]: [address], [place] [address], Ph. Attender: Merlene Sadler [facility] Medical 12/18/2019 12:00:00 AM EST HILDA ([facility]) Merlene Sadler, [employer]: [address], [place] [address], Ph. Attender: Merlene Sadler [facility] Medical 12/18/2019 12:00:00 AM EST HILDA ([facility]) Merlene Sadler, [employer]: [address], [place] [address], Ph. Attender: Merlene Sadler [facility] Medical 12/18/2019 12:00:00 AM EST HILDA ([facility]) Merlene Sadler, [employer]: [address], [place] [address], Ph. Attender: Merlene Sadler [facility] Medical 12/18/2019 12:00:00 AM EST HILDA ([facility]) Merlene Sadler, [employer]: [address], [place] [address], Ph. Attender: Merlene Sadler [facility] Medical 12/18/2019 12:00:00 AM EST HILDA ([facility]) Merlene Sadler [facility]: [address], [place] [address], Ph. Attender: Merlene Sadler [facility] Medical 12/12/2019 12:00:00 AM EST HILDA ([facility]) Merlene Sadler [employer]: [address], [place] [address], Ph. Attender: Merlene Sadler [facility] Medical 12/12/2019 12:00:00 AM EST HILDA ([facility]) Merlene Sadler, [employer]: [address], [place] [address], Ph. Attender: Merlene Sadler [facility] Medical 12/12/2019 12:00:00 AM EST HILDA ([facility]) Merlene Sadler, [facility]: [address], [place] [address], Ph. Attender: Merlene Sadler [facility] Medical 12/12/2019 12:00:00 AM EST HILDA ([facility]) Merlene Sadler [facility]: [address], [place] [address], Ph. Attender: Merlene Sadler [facility] Medical 12/12/2019 12:00:00 AM EST HILDA ([facility]) Merlene Sadler [facility]: [address], [place] [address], Ph. Attender: Merlene Sadler [facility] Medical 12/12/2019 12:00:00 AM EST HILDA ([facility]) Merlene Sadler, [facility]: [address], [place] [address], Ph. Attender: Merlene Sadler [facility] Medical 12/12/2019 12:00:00 AM EST HILDA ([facility]) Merlene Sadler, [employer]: [address], [place] [address], Ph. Attender: Merlene Sadler [facility] Medical 12/12/2019 12:00:00 AM EST HILDA ([facility]) Merlene Sadler [facility]: [address], [place] [address], Ph. Attender: Merlene Sadler [facility] Medical 12/12/2019 12:00:00 AM EST HILDA ([facility]) Merlene Sadler, [facility]: [address], [place] [address], Ph. Attender: Merlene Sadler [facility] Medical 12/12/2019 12:00:00 AM EST HILDA ([facility]) Merlene Sadler, [facility]: [address], [place] [address], Ph. Attender: Merlene Sadler [facility] Medical 12/12/2019 12:00:00 AM EST HILDA ([facility]) Merlene Sadler, [facility]: [address], [place] [address], Ph. Attender: Merlene Sadler [facility] Medical 12/12/2019 12:00:00 AM EST HILDA ([facility]) Merlene Sadler, [facility]: [address], [place] [address], Ph. Attender: Merlene Sadler [facility] Medical 12/12/2019 12:00:00 AM EST HILDA ([facility]) Merlene Sadler, [employer]: [address], [place] [address], Ph. Attender: Merlene Sadler [facility] Medical 12/12/2019 12:00:00 AM EST HILDA ([facility]) Merlene Sadler, [employer]: [address], [place] [address], Ph. Attender: Merlene Sadler [facility] Medical 12/12/2019 12:00:00 AM EST HILDA ([facility]) Terry Quiroga RPA-C: [address], [place] [address], Ph. Attender: TERRY QUIROGA RPA-C [facility] Medical 12/11/2019 12:00:00 AM EST HILDA ([facility]) Terry Quiroga RPA-C: [address], [place] [address], Ph. Attender: TERRY QUIROGA RPA-C [facility] Medical 12/11/2019 12:00:00 AM EST HILDA ([facility]) Terry Quiroga RPA-C: [address], [place] [address], Ph. Attender: TERRY QUIROGA RPA-C [facility] Medical 12/11/2019 12:00:00 AM EST HILDA ([facility]) Terry D Quiroga, RPA-C: [address], [place] [address], Ph. Attender: TERRY QUIROGA RPA-C [facility] Medical 12/11/2019 12:00:00 AM EST HILDA ([facility]) Terry Quiroga, RPA-C: [address], [place] [address], Ph. Attender: TERRY QUIROGA RPA-C [facility] Medical 12/11/2019 12:00:00 AM EST HILDA ([facility]) Terry Quiroga, RPA-C: [address], [place] [address], Ph. Attender: TERRY QUIROGA RPA-C [facility] Medical 12/11/2019 12:00:00 AM EST HILDA ([facility]) Terry Quiroga, RPA-C: [address], [place] [address], Ph. Attender: TERRY QUIROGA RPA-C [facility] Medical 12/11/2019 12:00:00 AM EST HILDA ([facility]) Terry Quiroga, RPA-C: [address], [place] [address], Ph. Attender: TERRY QUIROGA RPA-C [facility] Medical 12/11/2019 12:00:00 AM EST HILDA ([facility]) Terry Quiroga, RPA-C: [address], [place] [address], Ph. Attender: TERRY QUIROGA RPA-C [facility] Medical 12/11/2019 12:00:00 AM EST HILDA ([facility]) Terry Quiroga, RPA-C: [address], [place] [address], Ph. Attender: TERRY QUIROGA RPA-C [facility] Medical 12/11/2019 12:00:00 AM EST HILDA ([facility]) Terry Quiroga, RPA-C: [address], [place] [address], Ph. Attender: TERRY QUIROGA RPA-C [facility] Medical 12/11/2019 12:00:00 AM EST HILDA ([facility]) Terry Quiroga, RPA-C: [address], [place] [address], Ph. Attender: TERRY QUIROGA RPA-C [facility] Medical 12/11/2019 12:00:00 AM EST HILDA ([facility]) Terry Quiroga, RPA-C: [address], [place] [address], Ph. Attender: TERRY QUIROGA RPA-C [facility] Medical 12/11/2019 12:00:00 AM EST HILDA ([facility]) Terry Quiroga, RPA-C: [address], [place] [address], Ph. Attender: TERRY QUIROGA RPA-C [facility] Medical 12/11/2019 12:00:00 AM EST HILDA ([facility]) Terry Quiroga, RPA-C: [address], [place] [address], Ph. Attender: TERRY MONCADA [facility] Medical 12/11/2019 12:00:00 AM EST HILDA ([facility]) Merlene Sadler, [employer]: [address], [place] [address], Ph. Attender: Merlene Sadler [facility] Medical 12/03/2019 12:00:00 AM EDT HILDA ([facility]) Merlene Sadler, [employer]: [address], [place] [address], Ph. Attender: Merlene Sadler [facility] Medical 12/03/2019 12:00:00 AM EDT HILDA ([facility]) Merlene Sadler, [employer]: [address], [place] [address], Ph. Attender: Merlene Sadler [facility] Medical 12/03/2019 12:00:00 AM EDT HILDA ([facility]) Merlene Sadler, KILN TESTER: [address], [place] [address], Ph. Attender: Merlene Sadler [facility] Medical 12/03/2019 12:00:00 AM EDT [facility] ([facility]) Merlene Sadler, KILN TESTER: [address], [place] [address], Ph. Attender: Merlene Sadler [facility] Medical 12/03/2019 12:00:00 AM EDT HILDA ([facility]) Merlene Sadler, KILN TESTER: [address], [place] [address], Ph. Attender: Merlene Sadler [place] [facility] Medical 12/03/2019 12:00:00 AM EDT HILDA ([facility]) Merlene Sadler, KILN TESTER: [address], [place] [address], Ph. Attender: Merlene Sadler [facility] Medical 12/03/2019 12:00:00 AM EDT HILDA ([facility]) Merlene Salder, KILN TESTER: [address], [place] [address], Ph. Attender: Merlene Sadler [facility] Medical 12/03/2019 12:00:00 AM EDT [place] ([facility]) Merlene Sadler, KILN TESTER: [address], [place] [address], Ph. Attender: Merlene Sadler [facility] Medical 12/03/2019 12:00:00 AM EDT [place] ([facility]) Merlene Sadler, KILN TESTER: [address], [place] [address], Ph. Attender: Merlene Sadler [facility] Medical 12/03/2019 12:00:00 AM EDT [facility]ILDA ([facility]) Merlene Sadler, KILN TESTER: [address], [place] [address], Ph. Attender: Merlene Sadler [facility] Medical 12/03/2019 12:00:00 AM EDT [facility]ILDA ([facility]) Merlene Sadler, KILN TESTER: [address], [place] [address], Ph. Attender: Merlene Sadler [facility] Medical 12/03/2019 12:00:00 AM EDT [facility]ILDA ([facility]) Merlene Sadler, KILN TESTER: [address], [place] [address], Ph. Attender: Merlene Sadler [facility] Medical 12/03/2019 12:00:00 AM EDT [facility]ILDA ([facility]) Merlene Sadler, KILN TESTER: [address], [place] [address], Ph. Attender: Merlene Sadler [facility] Medical 12/03/2019 12:00:00 AM EDT HILDA ([facility]) Merlene Sadler, KILN TESTER: [address], [place] [address], Ph. Attender: Merlene Sadler [facility] Medical 12/03/2019 12:00:00 AM EDT [facility] ([facility] [place]) Merlene Sadler, KILN TESTER: [address], [place] [address], Ph. Attender: Merlene Sadler [facility] Medical 12/03/2019 12:00:00 AM EDT [facility] ([facility]) Merlene Sadler, KILN TESTER: [address], [place] [address], Ph. Attender: Merlene Sadler [facility] Medical 11/26/2019 12:00:00 AM EDT [facility] ([facility]) Merlene Sadler, KILN TESTER: [address], [place] [address], Ph. Attender: Merlene Sadler [facility] Medical 11/26/2019 12:00:00 AM EDT [facility] ([facility]) Merlene Sadler, [facility] [address], [place] [address], Ph. Attender: Merlene Sadler [facility] Medical 11/26/2019 12:00:00 AM EDT [place] ([facility]) Merlene Sadler, KILN TESTER: [address], [place] [address], Ph. Attender: Merlene Sadler [facility] Medical 11/26/2019 12:00:00 AM EDT [facility] ([facility]) Merlene Sadler, [facility] [address], [place] [address], Ph. Attender: Merlene Sadler [facility] Medical 11/26/2019 12:00:00 AM EDT [facility] ([facility]) Merlene Sadler, [facility] [address], [place] [address], Ph. Attender: Merlene Sadler [facility] Medical 11/26/2019 12:00:00 AM EDT [facility] ([facility]) Merlene Sadler [facility] [address], [place] [address], Ph. Attender: Merlene Sadler [facility] Medical 11/26/2019 12:00:00 AM EDT [facility] ([facility]) Merlene Sadler, [facility]: [address], [place] [address], Ph. Attender: Merlene Sadler [facility] Medical 11/26/2019 12:00:00 AM EDT [facility] ([facility]) Merlene Sadler, [facility] [address], [place] [address], Ph. Attender: Merlene Sadler [facility] Medical 11/26/2019 12:00:00 AM EDT [facility] ([facility]) Merlene Sadler, [facility] TESTER: [address], [place] [address], Ph. Attender: Merlene Salder [facility] Medical 11/26/2019 12:00:00 AM EDT [facility] ([facility]) Merlene Sadler, [employer] TESTER: [address], [place] [address], Ph. Attender: Merlene Sadler [facility] Medical 11/26/2019 12:00:00 AM EDT [place] ([facility]) Merlene Sadler, K[employer] TESTER: [address], [place] [address], Ph. Attender: Merlene Sadler [facility] Medical 11/26/2019 12:00:00 AM EDT [place] ([facility]) Merlene Sadler, K[employer] TESTER: [address], [place] [address], Ph. Attender: Merlene Sadler [facility] Medical 11/26/2019 12:00:00 AM EDT [facility] ([facility]) Merlene Sadler, K[employer] TESTER: [address], [place] [address], Ph. Attender: Merlene Sadler [facility] Medical 11/26/2019 12:00:00 AM EDT [facility] ([facility]) Merlene Sadler, KIL[employer] TESTER: [address], [place] [address], Ph. Attender: Merlene Sadler [facility] Medical 11/26/2019 12:00:00 AM EDT [facility] ([facility]) Merlene Sadler, [facility] [address], [place] [address], Ph. Attender: Merlene Sadler [facility] Medical 11/26/2019 12:00:00 AM EDT [facility] ([facility]) Merlene Sadler, [facility]: [address], [place] [address], Ph. Attender: Merlene Sadler [facility] Medical 11/26/2019 12:00:00 AM EDT [facility] ([facility]) Outpatient Attender: TINO FALK [facility] 09/2019 08:31:03 AM EDT [facility] Outpatient Attender: TERRY MONCADA [facility] 10/28/2019 04:06:01 PM EDT [facility] Outpatient Attender: TINO FALK [facility] 10/07 08:58:02 AM EDT [facility] Outpatient Attender: TERRY MONCADA [facility] 10/28/2019 08:58:02 AM EDT [facility] Outpatient Attender: TINO FALK [facility] 10/06 08:16:01 AM EDT [facility] Outpatient Attender: TINO FALK [facility] 09/2019 04:14:00 PM EDT [facility] Outpatient Attender: TERRY MONCADA [facility] 10/14/2019 09:02:02 AM EDT [facility] Outpatient Attender: TERRY WASHBURNC [facility] 10/10/2019 02:32:00 PM EDT [facility] Outpatient Attender: TINO FALK [facility] 0905/2019 02:32:00 PM EDT [facility] Outpatient Attender: TINO FALK [facility] 09/07 03:39:01 PM EDT [facility] Outpatient Attender: TNIO FALK [facility] 09/07 08:14:02 AM EDT [facility] Outpatient Attender: TINO FALK [facility] 09/06 10:06:04 AM EDT [facility] Outpatient Attender: TINO FALK [facility] 09/06 09:18:01 AM EDT [facility] Outpatient Attender: TERRY QUIROGA ANTWAN [facility] 09/24/2019 11:18:01 AM EDT [facility] Outpatient Attender: TINO FALK [facility] 09/05 07:41:01 AM EDT [facility] Outpatient Attender: TINO FALK [facility] 06/2019 03:54:01 PM EDT [facility] Outpatient Attender: PRABHA SHELLEY MD 09/10/2019 10:30:09 A M EDT [facility] Outpatient Attender: PRABHA SHELLEY MD 09/08/2019 12:53:00 P M EDT [facility] Medications Medication Brand Name Start Date Product Form Dose Route Admi nistrative Instructions Pharmacy Instructions Status Indications Reaction Description Data Source(s) atorvastatin 20 MG Oral Tablet Atorvastatin Calcium 01/10/2020 1 2:00:00 AM EST ORAL active [facility] ( [facility]) Escitalopram 20 MG Oral Tablet Escitalopram Oxalate 01/06/2020 1 2:00:00 AM EST ORAL active [facility] ( [facility]) Trazodone Hydrochloride 50 MG Oral Tablet Trazodone HCL 01/06/2020 12:00:00 AM EST ORAL active [facility] ([facility] Hydroxyzine Hydrochloride 25 MG Oral Tablet Hydroxyzine HCL 01/06/2020 12:00:00 AM EST ORAL active [facility] ([facility]) Omeprazole 20 MG Delayed Release Oral Capsule Omeprazole 01/06/2020 12:00:00 AM EST ORAL active [facility] ([facility]) Lorazepam 1 MG Oral Tablet Lorazepam 01/06/2020 12:00:00 AM EST ORAL active [facility] ([facility]) cetirizine hydrochloride 10 MG Oral Tablet Cetirizine HCL 01/06/2020 12:00:00 AM EST ORAL active [facility] ([facility]) Omeprazole 20 MG Delayed Release Oral Ta blet omeprazole 20 mg tablet,delayed release Take 1 tablet po QAM on an empty stomach omeprazole 20 mg tablet,delayed release Take 1 tablet po QAM on an empty stomach 09/24/2019 12:00:00 AM EDT completed omeprazole 20 MG Del ayed Release Oral Tablet [facility] ([facility]) Omeprazole 20 MG Delayed Release Oral Ta blet omeprazole 20 mg tablet,delayed release Take 1 tablet po QAM on an empty stomach omeprazole 20 mg tablet,delayed release Take 1 tablet po QAM on an empty stomach 09/24/2019 12:00:00 AM EDT completed omeprazole 20 MG Del ayed Release Oral Tablet [facility] ([facility]) Escitalopram 10 MG Oral Tablet [Lexapro] Lexapro 10 mg tablet Take 1 tablet by mouth once daily Lexapro 10 mg tablet Take 1 tablet by mouth once daily 09/10/2019 12:00:00 AM EDT completed escitalopram 10 MG Oral Tablet [Lexapro] [facility] ([facility]) Lorazepam 1 MG Oral Tablet lorazepam 1 m g tablet Take 0.5-1 tablet po daily in the evening: MDD 1mg lorazepam 1 mg tablet Take 0.5-1 tablet po daily in the evening: MDD 1mg 09/10/2019 12:00:00 AM EDT c ompleted lorazepam 1 MG Oral Tablet [facility] ([facility]) Hydroxyzine Hydrochloride 10 MG Oral Tab let hydroxyzine HCl 10 mg tablet Take 1- 2 tablets po q 6 hrs prn hydroxyzine HCl 10 mg tablet Take 1-2 ta blets po q 6 hrs prn 09/10/2019 12:00:00 AM EDT completed hydroxyzine hydrochloride 10 MG Oral Tablet [facility] ([facility]) Escitalopram 10 MG Oral Tablet [Lexapro] Lexapro 10 mg tablet Take 1 tablet by mouth once daily Lexapro 10 mg tablet Take 1 tablet by mouth once daily 09/10/2019 12:00:00 AM EDT completed escitalopram 10 MG Oral Tablet [Lexapro] [facility] ([facility]) Hydroxyzine Hydrochloride 10 MG Oral Tab let hydroxyzine HCl 10 mg tablet Take 1- 2 tablets po q 6 hrs prn hydroxyzine HCl 10 mg tablet Take 1-2 ta blets po q 6 hrs prn 09/10/2019 12:00:00 AM EDT completed hydroxyzine hydrochloride 10 MG Oral Tablet [facility] ([facility]) Lorazepam 1 MG Oral Tablet lorazepam 1 m g tablet Take 0.5-1 tablet po daily in the evening: MDD 1mg lorazepam 1 mg tablet Take 0.5-1 tablet po daily in the evening: MDD 1mg 09/10/2019 12:00:00 AM EDT c ompleted lorazepam 1 MG Oral Tablet [facility] ([facility]) Hydroxyzine Hydrochloride 10 MG Oral Tab let hydroxyzine HCl 10 mg tablet TAKE 1 TO 2 TABLETS BY MOUTH EVERY 6 HOURS NEEDED hydroxyzine HCl 10 mg tablet TAKE 1 TO 2 TABLETS BY MOUTH EVERY 6 HOURS NEEDED completed hydroxyzine hydrochloride 10 MG Oral Tablet [facility] ([facility]) Hydroxyzine Hydrochloride 10 MG Oral Tab let hydroxyzine HCl 10 mg tablet TAKE 1 TO 2 TABLETS BY MOUTH EVERY 6 HOURS NEEDED hydroxyzine HCl 10 mg tablet TAKE 1 TO 2 TABLETS BY MOUTH EVERY 6 HOURS NEEDED completed hydroxyzine hydrochloride 10 MG Oral Tablet [facility] ([facility]) Trazodone Hydrochloride 50 MG Oral Table t trazodone 50 mg tablet TAKE 1 TABLET BY MOUTH ONCE DAILY AT BEDTIME trazodone 50 mg tablet TAKE 1 TABLET BY MOUTH ONCE DAILY AT BEDTIME completed trazodone hydrochloride 50 MG Oral Tablet [facility] ([facility]) Hydroxyzine Hydrochloride 10 MG Oral Tab let hydroxyzine HCl 10 mg tablet TAKE 1 TO 2 TABLETS BY MOUTH EVERY 6 HOURS NEEDED hydroxyzine HCl 10 mg tablet TAKE 1 TO 2 TABLETS BY MOUTH EVERY 6 HOURS NEEDED completed hydroxyzine hydrochloride 10 MG Oral Tablet [facility] ([facility] Escitalopram 10 MG Oral Tablet escitalop yuko 10 mg tablet TAKE 1 TABLET BY MOUTH ONCE DAILY escitalopram 10 mg tablet TAKE 1 TABLET BY MOUTH ONCE DAILY completed escitalopram 10 MG Oral T ablet [facility] ([facility]) Escitalopram 10 MG Oral Tablet escitalop yuko 10 mg tablet TAKE 1 TABLET BY MOUTH ONCE DAILY escitalopram 10 mg tablet TAKE 1 TABLET BY MOUTH ONCE DAILY completed escitalopram 10 MG Oral T ablet [facility] ([facility]) Escitalopram 10 MG Oral Tablet escitalop yuko 10 mg tablet TAKE 1 TABLET BY MOUTH ONCE DAILY escitalopram 10 mg tablet TAKE 1 TABLET BY MOUTH ONCE DAILY completed escitalopram 10 MG Oral T ablet [facility] ([facility] Hydroxyzine Hydrochloride 10 MG Oral Tab let hydroxyzine HCl 10 mg tablet TAKE 1 TO 2 TABLETS BY MOUTH EVERY 6 HOURS NEEDED hydroxyzine HCl 10 mg tablet TAKE 1 TO 2 TABLETS BY MOUTH EVERY 6 HOURS NEEDED completed hydroxyzine hydrochloride 10 MG Oral Tablet [facility] ([facility]) Hydroxyzine Hydrochloride 10 MG Oral Tab let hydroxyzine HCl 10 mg tablet TAKE 1 TO 2 TABLETS BY MOUTH EVERY 6 HOURS NEEDED hydroxyzine HCl 10 mg tablet TAKE 1 TO 2 TABLETS BY MOUTH EVERY 6 HOURS NEEDED completed hydroxyzine hydrochloride 10 MG Oral Tablet [facility] ([facility]) Escitalopram 10 MG Oral Tablet escitalop yuko 10 mg tablet TAKE 1 TABLET BY MOUTH ONCE DAILY escitalopram 10 mg tablet TAKE 1 TABLET BY MOUTH ONCE DAILY completed escitalopram 10 MG Oral T ablet [facility] ([facility]) Hydroxyzine Hydrochloride 10 MG Oral Tab let hydroxyzine HCl 10 mg tablet TAKE 1 TO 2 TABLETS BY MOUTH EVERY 6 HOURS NEEDED hydroxyzine HCl 10 mg tablet TAKE 1 TO 2 TABLETS BY MOUTH EVERY 6 HOURS NEEDED completed hydroxyzine hydrochloride 10 MG Oral Tablet [facility] ([facility]) Escitalopram 10 MG Oral Tablet escitalop yuko 10 mg tablet TAKE 1 TABLET BY MOUTH ONCE DAILY escitalopram 10 mg tablet TAKE 1 TABLET BY MOUTH ONCE DAILY completed escitalopram 10 MG Oral T ablet [facility] ([facility]) Trazodone Hydrochloride 50 MG Oral Table t trazodone 50 mg tablet TAKE 1 TABLET BY MOUTH ONCE DAILY AT BEDTIME trazodone 50 mg tablet TAKE 1 TABLET BY MOUTH ONCE DAILY AT BEDTIME completed trazodone hydrochloride 50 MG Oral Tablet HILDA [facility]) Escitalopram 10 MG Oral Tablet escitalop yuko 10 mg tablet TAKE 1 TABLET BY MOUTH ONCE DAILY escitalopram 10 mg tablet TAKE 1 TABLET BY MOUTH ONCE DAILY completed escitalopram 10 MG Oral T ablet [facility] ([facility]) Hydroxyzine Hydrochloride 10 MG Oral Tab let hydroxyzine HCl 10 mg tablet TAKE 1 TO 2 TABLETS BY MOUTH EVERY 6 HOURS NEEDED hydroxyzine HCl 10 mg tablet TAKE 1 TO 2 TABLETS BY MOUTH EVERY 6 HOURS NEEDED completed hydroxyzine hydrochloride 10 MG Oral Tablet [facility] ([facility]) Escitalopram 10 MG Oral Tablet escitalop yuko 10 mg tablet TAKE 1 TABLET BY MOUTH ONCE DAILY escitalopram 10 mg tablet TAKE 1 TABLET BY MOUTH ONCE DAILY completed escitalopram 10 MG Oral T ablet [facility] ([facility]) Hydroxyzine Hydrochloride 10 MG Oral Tab let hydroxyzine HCl 10 mg tablet TAKE 1 TO 2 TABLETS BY MOUTH EVERY 6 HOURS NEEDED hydroxyzine HCl 10 mg tablet TAKE 1 TO 2 TABLETS BY MOUTH EVERY 6 HOURS NEEDED completed hydroxyzine hydrochloride 10 MG Oral Tablet [facility] ([facility]) Trazodone Hydrochloride 50 MG Oral Table t trazodone 50 mg tablet TAKE 1 TABLET BY MOUTH ONCE DAILY AT BEDTIME trazodone 50 mg tablet TAKE 1 TABLET BY MOUTH ONCE DAILY AT BEDTIME completed trazodone hydrochloride 50 MG Oral Tablet [facility] ([facility]) Escitalopram 10 MG Oral Tablet escitalop yuko 10 mg tablet TAKE 1 TABLET BY MOUTH ONCE DAILY escitalopram 10 mg tablet TAKE 1 TABLET BY MOUTH ONCE DAILY completed escitalopram 10 MG Oral T ablet [facility] ([facility]) Hydroxyzine Hydrochloride 10 MG Oral Tab let hydroxyzine HCl 10 mg tablet TAKE 1 TO 2 TABLETS BY MOUTH EVERY 6 HOURS NEEDED hydroxyzine HCl 10 mg tablet TAKE 1 TO 2 TABLETS BY MOUTH EVERY 6 HOURS NEEDED completed hydroxyzine hydrochloride 10 MG Oral Tablet [facility] ([facility]) Trazodone Hydrochloride 50 MG Oral Table t trazodone 50 mg tablet TAKE 1 TABLET BY MOUTH ONCE DAILY AT BEDTIME trazodone 50 mg tablet TAKE 1 TABLET BY MOUTH ONCE DAILY AT BEDTIME completed trazodone hydrochloride 50 MG Oral Tablet [facility] ([facility]) Hydroxyzine Hydrochloride 10 MG Oral Tab let hydroxyzine HCl 10 mg tablet TAKE 1 TO 2 TABLETS BY MOUTH EVERY 6 HOURS NEEDED hydroxyzine HCl 10 mg tablet TAKE 1 TO 2 TABLETS BY MOUTH EVERY 6 HOURS NEEDED completed hydroxyzine hydrochloride 10 MG Oral Tablet [place] ([facility]) Escitalopram 10 MG Oral Tablet escitalop yuko 10 mg tablet TAKE 1 TABLET BY MOUTH ONCE DAILY escitalopram 10 mg tablet TAKE 1 TABLET BY MOUTH ONCE DAILY completed escitalopram 10 MG Oral T ablet [facility] ([facility]) Escitalopram 10 MG Oral Tablet escitalop yuko 10 mg tablet TAKE 1 TABLET BY MOUTH ONCE DAILY escitalopram 10 mg tablet TAKE 1 TABLET BY MOUTH ONCE DAILY completed escitalopram 10 MG Oral T ablet [facility] ([facility]) Insurance Providers Payer name Policy type / Coverage type Policy ID Covered green party ID Covered green party's relationship to mahajan Policy Mahajan Plan Information SELF PAY ONLY [id number] SP [id number] Sliding Fee Scale P None S No ne [facility] [employer] [facility] [id number] SP [id number] MEDICAID [id number] S [id number] MEDICAID [id number] SP [id number] [id number] [id number] SP [id number] [facility] [employer] COMP [id number] SP [id number] SELF PAY ONLY [id number] SP [id number] O UNAVAILABLE UNAVAILA BLE SELF PAY UNAVAILABLE SP UNAVAILA BLE ANTHEM BENEFIT ADMINISTRATORS [id number] SP [id number] EXCELLUS BCBS B [id number] S TAE [id number] BCBS [place] PPO 302/[id number] SP [id number] BCBS OF [place] 306/[id number] SP [id number] Self Pay S UNAVAILABLE S UNAVAILA BLE AETNA [facility] [id number] Problems, Conditions, and Diagnoses Code Display Name Description Problem Type Effective Dates Data Source(s) 128977149 Elevated blood-pressure reading without diagnosis of hypertension Elevated Blood-pressure Reading without Diagnosis of Hypertension Problem 02/02/2020 12:00:00 AM EVE STEVENS ([facility]) [id number] Elevated blood-pressure reading without diagnosis of hypertension Elevated Blood-pressure Reading without Diagnosis of Hypertension Problem 02/02/2020 12:00:00 AM EVE HILDA ([facility]) [id number] Elevated blood-pressure reading without diagnosis of hypertension Elevated Blood-pressure Reading without Diagnosis of Hypertension Problem 02/02/2020 12:00:00 AM EST [facility] ([facility]) [id number] Elevated blood-pressure reading without diagnosis of hypertension Elevated Blood-pressure Reading without Diagnosis of Hypertension Problem 02/02/2020 12:00:00 AM EST [facility] ([facility]) [id number] Gastroesophageal reflux disease Gastroesophageal reflux disease Problem 01/07/2020 12:00:00 AM EST [facility] ([facility]) [id number] Palpitations Palpitations Problem 01/07/2020 12:00:00 A M EST [facility] ([facility]) [id number] Body mass index 30+ - obesity Body mass index 30+ - ob esity Problem 01/07/2020 12:00:00 AM EST [facility] ([facility]) [id number] Electrocardiogram abnormal Electrocardiogram abnormal Problem 01/07/2020 12:00:00 AM EST [facility] ([facility]) [id number] Precordial pain Precordial pain Problem 01/07/2020 12:0 0:00 AM EST [facility] ([facility]) [id number] Panic disorder without agoraphobia Panic Disorde r without Agoraphobia Problem 12/29/2019 12:00:00 AM EST HILDA ([facility]) [id number] Panic disorder without agoraphobia Panic Disorde r without Agoraphobia Problem 12/29/2019 12:00:00 AM EST [facility] ([facility]) [id number] Panic disorder without agoraphobia Panic Disorde r without Agoraphobia Problem 12/29/2019 12:00:00 AM EST [facility]DA ([facility]) [id number] Panic disorder without agoraphobia Panic Disorde r without Agoraphobia Problem 12/29/2019 12:00:00 AM EST [facility] ([facility]) [id number] Panic disorder without agoraphobia Panic Disorde r without Agoraphobia Problem 12/29/2019 12:00:00 AM EST [facility] ([facility]) [id number] Panic disorder without agoraphobia Panic Disorde r without Agoraphobia Problem 12/29/2019 12:00:00 AM EST [facility]DA ([facility]) [id number] Panic disorder without agoraphobia Panic Disorde r without Agoraphobia Problem 12/29/2019 12:00:00 AM EST [facility]ILDA ([facility]) [id number] Panic disorder without agoraphobia Panic Disorde r without Agoraphobia Problem 12/29/2019 12:00:00 AM EST [facility]ILDA ([facility]) [id number] Panic disorder without agoraphobia Panic Disorde r without Agoraphobia Problem 12/29/2019 12:00:00 AM EST [facility]ILDA ([facility]) [id number] Panic disorder without agoraphobia Panic Disorde r without Agoraphobia Problem 12/29/2019 12:00:00 AM EST HILDA ([facility]) [id number] Panic disorder without agoraphobia Panic Disorde r without Agoraphobia Problem 12/29/2019 12:00:00 AM EST HILDA ([facility]) [id number] Psychophysiologic insomnia Psychophysiologic Insomnia Problem 12/11/2019 12:00:00 AM EST HILDA ([facility]) [id number] Psychophysiologic insomnia Psychophysiologic Insomnia Problem 12/11/2019 12:00:00 AM EST [facility]ILDA ([facility]) [id number] Psychophysiologic insomnia Psychophysiologic Insomnia Problem 12/11/2019 12:00:00 AM EST HILDA ([facility]) [id number] Psychophysiologic insomnia Psychophysiologic Insomnia Problem 12/11/2019 12:00:00 AM EST HILDA ([facility]) [id number] Psychophysiologic insomnia Psychophysiologic Insomnia Problem 12/11/2019 12:00:00 AM EST [facility]ILDA ([facility]) [id number] Psychophysiologic insomnia Psychophysiologic Insomnia Problem 12/11/2019 12:00:00 AM EST [facility]ILDA ([facility]) [id number] Psychophysiologic insomnia Psychophysiologic Insomnia Problem 12/11/2019 12:00:00 AM EST [facility]ILDA ([facility]) [id number] Psychophysiologic insomnia Psychophysiologic Insomnia Problem 12/11/2019 12:00:00 AM EST HILDA ([facility]) [id number] Psychophysiologic insomnia Psychophysiologic Insomnia Problem 12/11/2019 12:00:00 AM EST HILDA ([facility]) [id number] Psychophysiologic insomnia Psychophysiologic Insomnia Problem 12/11/2019 12:00:00 AM EST HILDA ([facility]) [id number] Psychophysiologic insomnia Psychophysiologic Insomnia Problem 12/11/2019 12:00:00 AM EST [facility]ILDA ([facility]) [id number] Psychophysiologic insomnia Psychophysiologic Insomnia Problem 12/11/2019 12:00:00 AM EST [facility]ILDA ([facility]) [id number] Psychophysiologic insomnia Psychophysiologic Insomnia Problem 12/11/2019 12:00:00 AM EST [facility]ILDA ([facility]) [id number] Psychophysiologic insomnia Psychophysiologic Insomnia Problem 12/11/2019 12:00:00 AM EST [facility]ILDA ([facility]) [id number] Psychophysiologic insomnia Psychophysiologic Insomnia Problem 12/11/2019 12:00:00 AM EST HILDA ([facility]) [id number] Generalized anxiety disorder Generalized Anxiety Disor sallie Problem 12/01/2019 12:00:00 AM EDT HILDA ([facility]) [id number] Generalized anxiety disorder Generalized Anxiety Disor sallie Problem 12/01/2019 12:00:00 AM EDT HILDA ([facility]) [id number] Generalized anxiety disorder Generalized Anxiety Disor sallie Problem 12/01/2019 12:00:00 AM EDT HILDA ([facility] [facility] er) [id number] Generalized anxiety disorder Generalized Anxiety Disor sallie Problem 12/01/2019 12:00:00 AM EDT HILDA ([facility] er) [id number] Generalized anxiety disorder Generalized Anxiety Disor sallie Problem 12/01/2019 12:00:00 AM EDT HILDA ([facility] er) [id number] Generalized anxiety disorder Generalized Anxiety Disor sallie Problem 12/01/2019 12:00:00 AM EDT HILDA ([facility] er) 21170469 Generalized anxiety disorder Generalized Anxiety Disor sallie Problem 12/01/2019 12:00:00 AM EDT HILDA ([facility] er) 59342679 Generalized anxiety disorder Generalized Anxiety Disor sallie Problem 12/01/2019 12:00:00 AM EDT HILDA ([facility] er) [id number] Generalized anxiety disorder Generalized Anxiety Disor sallie Problem 12/01/2019 12:00:00 AM EDT HILDA ([facility] er) [id number] Generalized anxiety disorder Generalized Anxiety Disor sallie Problem 12/01/2019 12:00:00 AM EDT HILDA ([facility] er) 76314606 Generalized anxiety disorder Generalized Anxiety Disor sallie Problem 12/01/2019 12:00:00 AM EDT HILDA ([facility] er) 82122040 Generalized anxiety disorder Generalized Anxiety Disor sallie Problem 12/01/2019 12:00:00 AM EDT HILDA ([facility] er) [id number] Generalized anxiety disorder Generalized Anxiety Disor sallie Problem 12/01/2019 12:00:00 AM EDT HILDA ([facility] er) 89325236 Generalized anxiety disorder Generalized Anxiety Disor sallie Problem 12/01/2019 12:00:00 AM EDT HILDA ([facility] er) 87720484 Generalized anxiety disorder Generalized Anxiety Disor sallie Problem 12/01/2019 12:00:00 AM EDT HILDA ([facility] er) 04990009 Generalized anxiety disorder Generalized Anxiety Disor sallie Problem 12/01/2019 12:00:00 AM EDT HILDA ([facility] er) 62668813 Generalized anxiety disorder Generalized Anxiety Disor sallie Problem 12/01/2019 12:00:00 AM EDT HILDA ([facility] er) 427.89 Bradycardia Bradycardia 10/28/2019 04:05:45 PM EDT [facility] [id number] Chest pain, unspecified Chest pain, unspecified 10/28/2019 04:05:45 PM EDT [facility] 416800622 Chronic insomnia Chronic insomnia 10/28/2019 04 :05:45 PM EDT [facility] 300.02 GENERALIZED ANXIETY DISORDER GENERALIZED ANXIETY DISOR SALLIE 10/14/2019 09:01:07 AM EDT [facility] 300.01 PANIC DISORDER PANIC DISORDER 10/14/2019 09:01: 07 AM EDT [facility] 530.81 Gastro-esophageal reflux disease without esophagitis Gastro-esophageal reflux disease without esophagitis 09/24/2019 11:17:20 AM ED T [facility] [id number] Gastroesophageal reflux disease without esophagitis Gastroesophageal Reflux Disease without Esophagitis Problem 09/24/2019 12:00:00 AM ED [place] HILDA ([facility]) [id number] Gastroesophageal reflux disease without esophagitis Gastroesophageal Reflux Disease without Esophagitis Problem 09/24/2019 12:00:00 AM ED Ludmila HILDA ([facility]) [id number] Gastroesophageal reflux disease without esophagitis Gastroesophageal Reflux Disease without Esophagitis Problem 09/24/2019 12:00:00 AM ED Ludmila HILDA ([facility]) [id number] Gastroesophageal reflux disease without esophagitis Gastroesophageal Reflux Disease without Esophagitis Problem 09/24/2019 12:00:00 AM ED Ludmila STEVENS ([facility]) 129272286 Gastroesophageal reflux disease without esophagitis Gastroesophageal Reflux Disease without Esophagitis Problem 09/24/2019 12:00:00 AM ED Ludmila STEVENS ([facility]) 124590068 Gastroesophageal reflux disease without esophagitis Gastroesophageal Reflux Disease without Esophagitis Problem 09/24/2019 12:00:00 AM ED Ludmila STEVENS ([facility]) 653618505 Gastroesophageal reflux disease without esophagitis Gastroesophageal Reflux Disease without Esophagitis Problem 09/24/2019 12:00:00 AM ED Ludmila HILDA ([facility]) 384065160 Gastroesophageal reflux disease without esophagitis Gastroesophageal Reflux Disease without Esophagitis Problem 09/24/2019 12:00:00 AM ED Ludmila HILDA ([facility]) 425060051 Gastroesophageal reflux disease without esophagitis Gastroesophageal Reflux Disease without Esophagitis Problem 09/24/2019 12:00:00 AM ED Ludmila STEVENS ([facility]) 559848807 Finding of esophagus Finding of Esophagus Problem 09/24/2019 12:00:00 AM EDLudmila STEVENS ([facility] er) 415752030 Gastroesophageal reflux disease without esophagitis Gastroesophageal Reflux Disease without Esophagitis Problem 09/24/2019 12:00:00 AM ED Ludmila HILDA ([facility]) 583944449 Gastroesophageal reflux disease without esophagitis Gastroesophageal Reflux Disease without Esophagitis Problem 09/24/2019 12:00:00 AM ED Ludmila STEVENS ([facility]) 175222314 Gastroesophageal reflux disease without esophagitis Gastroesophageal Reflux Disease without Esophagitis Problem 09/24/2019 12:00:00 AM ED Ludmila STEVENS ([facility]) 521519168 Gastroesophageal reflux disease without esophagitis Gastroesophageal Reflux Disease without Esophagitis Problem 09/24/2019 12:00:00 AM ED T HILDA ([facility]) 464754451 Gastroesophageal reflux disease without esophagitis Gastroesophageal Reflux Disease without Esophagitis Problem 09/24/2019 12:00:00 AM ED T HILDA ([facility]) 819055519 Gastroesophageal reflux disease without esophagitis Gastroesophageal Reflux Disease without Esophagitis Problem 09/24/2019 12:00:00 AM ED T HILDA ([facility]) 315319518 Finding of esophagus Finding of Esophagus Problem 09/24/2019 12:00:00 AM EDT [place] ([facility] er) F17.210 Nicotine dependence, cigarettes, uncompl icated Nicotine dependence, cigarettes, uncomplicated 09/10/2019 10:28:25 AM EDT [facility] 309.28 Adjustment disorder with mixed emotional features Adjustment disorder with mixed emotional features 09/10/2019 10:28:25 AM EDT [facility] 300.01 C/O - panic attack C/O - panic attack 0 10:28:25 AM EDT [facility] V70.0 Encounter for general adult medical exam ination with abnormal findings Encounter for general adult medical examination with abnormal findings 09/10/2019 10:28:25 AM EDT [facility] [id number] Panic disorder Panic Disorder Problem 09/10/2019 12:00:00 AM EDT - 12/29/2019 12:00:00 AM EVE STEVENS ([facility] er) [id number] Procedure by method Procedure by Method Problem 0 09/10/2019 12:00:00 AM EDT - 12/11/2019 12:00:00 AM EST HILDA ([facility] er) [id number] Panic disorder Panic Disorder Problem 09/10/2019 12:00:00 AM EDT - 12/29/2019 12:00:00 AM EST HILDA ([facility] er) [id number] Procedure by method Procedure by Method Problem 0 09/10/2019 12:00:00 AM EDT - 12/11/2019 12:00:00 AM EST HILDA ([facility] er) [id number] Panic disorder Panic Disorder Problem 09/10/2019 12:00:00 AM EDT - 12/29/2019 12:00:00 AM EST HILDA ([facility] er) [id number] Procedure by method Procedure by Method Problem 0 09/10/2019 12:00:00 AM EDT - 12/11/2019 12:00:00 AM EST [facility]ILDA ([facility] er) [id number] Panic disorder Panic Disorder Problem 09/10/2019 12:00:00 AM EDT - 12/29/2019 12:00:00 AM EST [facility]ILDA ([facility] er) 890111047 Procedure by method Procedure by Method Problem 0 09/10/2019 12:00:00 AM EDT - 12/11/2019 12:00:00 AM EST [facility]DA ([facility] er) [id number] Panic disorder Panic Disorder Problem 09/10/2019 12:00:00 AM EDT - 12/29/2019 12:00:00 AM EST [facility]ILDA ([facility] er) 605838959 Procedure by method Procedure by Method Problem 0 09/10/2019 12:00:00 AM EDT - 12/11/2019 12:00:00 AM EST HILDA ([facility] er) [id number] Panic disorder Panic Disorder Problem 09/10/2019 12:00: 00 AM EDT HILDA ([facility]) 692850353 Procedure by method Procedure by Method Problem 0 09/10/2019 12:00:00 AM EDT - 12/11/2019 12:00:00 AM EST HILDA ([facility] er) [id number] Adjustment disorder with mixed anxiety a nd depressed mood Adjustment Disorder with Mixed Anxiety and Depressed Mood Problem 12:00:00 AM EDT HILDA ([facility] er) 662079335 Panic disorder Panic Disorder Problem 09/10/2019 12:00: 00 AM EDT HILDA ([facility]) 906554712 Procedure by method Procedure by Method Problem 0 09/10/2019 12:00:00 AM EDT - 12/11/2019 12:00:00 AM EST HILDA ([facility] er) 180232849 Adjustment disorder with mixed anxiety a nd depressed mood Adjustment Disorder with Mixed Anxiety and Depressed Mood Problem 12:00:00 AM EDT HILDA ([facility] er) 960292759 Panic disorder Panic Disorder Problem 09/10/2019 12:00: 00 AM EDT HILDA ([facility]) [id number] Procedure by method Procedure by Method Problem 0 09/10/2019 12:00:00 AM EDT - 12/11/2019 12:00:00 AM EST HILDA ([facility] er) [id number] Adjustment disorder with mixed anxiety a nd depressed mood Adjustment Disorder with Mixed Anxiety and Depressed Mood Problem 12:00:00 AM EDT HILDA ([facility] er) 582563696 Panic disorder Panic Disorder Problem 09/10/2019 12:00: 00 AM EDT HILDA ([facility]) [id number] Procedure by method Procedure by Method Problem 0 09/10/2019 12:00:00 AM EDT - 12/11/2019 12:00:00 AM EST HILDA ([facility] er) 510763799 Adjustment disorder with mixed anxiety a nd depressed mood Adjustment Disorder with Mixed Anxiety and Depressed Mood Problem 12:00:00 AM EDT HILDA ([facility] er) 568413723 Panic disorder Panic Disorder Problem 09/10/2019 12:00: 00 AM EDT HILDA ([facility]) 864443733 Procedure by method Procedure by Method Problem 0 09/10/2019 12:00:00 AM EDT HILDA ([facility] er) 169906145 Adjustment disorder with mixed anxiety a nd depressed mood Adjustment Disorder with Mixed Anxiety and Depressed Mood Problem 12:00:00 AM EDT HILDA ([facility] er) 725639245 Panic disorder Panic Disorder Problem 09/10/2019 12:00:00 AM EDT - 12/29/2019 12:00:00 AM EST HILDA ([facility] er) [id number] Procedure by method Procedure by Method Problem 0 09/10/2019 12:00:00 AM EDT - 12/11/2019 12:00:00 AM EST HILDA ([facility] er) 197501235 Panic disorder Panic Disorder Problem 09/10/2019 12:00:00 AM EDT - 12/29/2019 12:00:00 AM EST HILDA ([facility] er) 719205307 Procedure by method Procedure by Method Problem 0 09/10/2019 12:00:00 AM EDT - 12/11/2019 12:00:00 AM EST HILDA ([facility] er) [id number] Panic disorder Panic Disorder Problem 09/10/2019 12:00:00 AM EDT - 12/29/2019 12:00:00 AM EST HILDA ([facility] er) [id number] Procedure by method Procedure by Method Problem 0 09/10/2019 12:00:00 AM EDT - 12/11/2019 12:00:00 AM EST HILDA ([facility] er) 678439156 Panic disorder Panic Disorder Problem 09/10/2019 12:00:00 AM EDT - 12/29/2019 12:00:00 AM EST HILDA ([facility] er) 954100368 Procedure by method Procedure by Method Problem 0 09/10/2019 12:00:00 AM EDT - 12/11/2019 12:00:00 AM EST HILDA ([facility] er) 363278277 Panic disorder Panic Disorder Problem 09/10/2019 12:00:00 AM EDT - 12/29/2019 12:00:00 AM EST HILDA ([facility] er) [id number] Procedure by method Procedure by Method Problem 0 09/10/2019 12:00:00 AM EDT - 12/11/2019 12:00:00 AM EST HILDA ([facility] er) 034035449 Panic disorder Panic Disorder Problem 09/10/2019 12:00:00 AM EDT - 12/29/2019 12:00:00 AM EST HILDA ([facility] er) [id number] Procedure by method Procedure by Method Problem 0 09/10/2019 12:00:00 AM EDT - 12/11/2019 12:00:00 AM EST HILDA ([facility] er) [id number] Panic disorder Panic Disorder Problem 09/10/2019 12:00: 00 AM EDT HILDA ([facility]) [id number] Procedure by method Procedure by Method Problem 0 09/10/2019 12:00:00 AM EDT HILDA ([facility] er) [id number] Adjustment disorder with mixed anxiety a nd depressed mood Adjustment Disorder with Mixed Anxiety and Depressed Mood Problem 020 12:00:00 AM EDT HILDA ([facility]) Surgeries/Procedures Procedure Description Date Indications Data Source(s) CV STRS TST XERS&/OR RX CONT ECG PHYS SI&R 01/08/2020 12:00:00 AM EST MED[facility] ([facility]) ECHO TTHRC R-T 2D W/WOM-MODE COMPL SPEC&COLR DOP 01/07 12:00:00 AM EST [facility] ([facility]) ECG ROUTINE ECG W/LEAST 12 LDS W/I&R 01/07/2020 12:00: 00 AM EST [facility] ([facility]) Results ID Date Data Source [id number] 03/23/2020 12:00:00 AM EST [facility] Name Value Range Interpretation Code Description Data Ellie rce(s) Supporting Document(s) SARS-CoV2 Rapid Antigen Negative [facility] This [facility] and reported by [facility]. ID Date Data Source [id number] 01/09/2020 03:51:00 PM EST HILDA ([facility]) Name Value Range Interpretation Code Description Data Ellie rce(s) Supporting Document(s) C reactive protein quantitativ < 0.30 0.00-0.30 normal C Reactive Protein Quantitativ [facility]) ID Date Data Source [id number] 01/09/2020 03:51:00 PM EST HILDA ([facility]) Name Value Range Interpretation Code Description Data Ellie rce(s) Supporting Document(s) triglycerides level 314 mg/dL <150 Above high normal Triglycer ides Level HILDA ([facility]) HDL cholesterol 38 mg/dL >40 Below low normal HDL Cholestero l [place] ([facility]) Cholesterol in LDL [Mass/volume] in Serum or Plasma 177 mg/dL <100 Above high normal LDL Cholesterol HILDA ([facility]) cholesterol level 278 mg/dL <200 Above high normal Cholesterol Level [place] ([facility]) non-HDL-C 240 mg/dL normal Non-hdl-c HILDA ([facility]) cholesterol risk ratio <5 Above high normal Choles terol Risk Ratio HILDA ([facility]) ID Date Data Source [id number] 01/09/2020 03:51:00 PM EST HILDA ([facility]) Name Value Range Interpretation Code Description Data Ellie rce(s) Supporting Document(s) C reactive protein quantitativ < 0.30 0.00-0.30 normal C Reactive Protein Quantitativ HILDA ([facility]) ID Date Data Source [id number] 01/09/2020 03:51:00 PM EST HILDA ([facility]) Name Value Range Interpretation Code Description Data Ellie rce(s) Supporting Document(s) cholesterol level 278 mg/dL <200 Above high normal Cholesterol Level HILDA ([facility]) triglycerides level 314 mg/dL <150 Above high normal Triglycer ides Level HILDA ([facility]) Cholesterol in LDL [Mass/volume] in Serum or Plasma 177 mg/dL <100 Above high normal LDL Cholesterol [facility]ILDA ([facility]) non-HDL-C 240 mg/dL normal Non-hdl-c HILDA ([facility]) cholesterol risk ratio <5 Above high normal Choles terol Risk Ratio HILDA ([facility]) HDL cholesterol 38 mg/dL >40 Below low normal HDL Cholestero l HILDA ([facility]) ID Date Data Source [id number] 01/09/2020 03:51:00 PM EST HILDA ([facility]) Name Value Range Interpretation Code Description Data Ellie rce(s) Supporting Document(s) C reactive protein quantitativ < 0.30 0.00-0.30 normal C Reactive Protein Quantitativ [facility]DA ([facility]) ID Date Data Source [id number] 01/09/2020 03:51:00 PM EST HILDA ([facility]) Name Value Range Interpretation Code Description Data Ellie rce(s) Supporting Document(s) triglycerides level 314 mg/dL <150 Above high normal Triglycer ides Level HILDA ([facility]) Cholesterol in LDL [Mass/volume] in Serum or Plasma 177 mg/dL <100 Above high normal LDL Cholesterol [facility] ([facility]) HDL cholesterol 38 mg/dL >40 Below low normal HDL Cholestero l HILDA ([facility]) non-HDL-C 240 mg/dL normal Non-hdl-c HILDA ([facility]) cholesterol level 278 mg/dL <200 Above high normal Cholesterol Level HILDA ([facility]) cholesterol risk ratio <5 Above high normal Choles terol Risk Ratio HILDA ([facility]) ID Date Data Source [id number] 01/09/2020 03:51:00 PM EST HILDA ([facility]) Name Value Range Interpretation Code Description Data Ellie rce(s) Supporting Document(s) C reactive protein quantitativ < 0.30 0.00-0.30 normal C Reactive Protein Quantitativ HILDA ([facility]) ID Date Data Source [id number] 01/09/2020 03:51:00 PM EST HILDA ([facility]) Name Value Range Interpretation Code Description Data Ellie rce(s) Supporting Document(s) HDL cholesterol 38 mg/dL >40 Below low normal HDL Cholestero l HILDA ([facility]) cholesterol level 278 mg/dL <200 Above high normal Cholesterol Level HILDA ([facility]) triglycerides level 314 mg/dL <150 Above high normal Triglycer ides Level HILDA ([facility]) cholesterol risk ratio <5 Above high normal Choles terol Risk Ratio HILDA ([facility]) Cholesterol in LDL [Mass/volume] in Serum or Plasma 177 mg/dL <100 Above high normal LDL Cholesterol [facility] ([facility]) non-HDL-C 240 mg/dL normal Non-hdl-c H[facility]DA ([facility]) ID Date Data Source [id number] 01/09/2020 03:51:00 PM EST HILDA ([facility]) Name Value Range Interpretation Code Description Data Ellie rce(s) Supporting Document(s) C reactive protein quantitativ < 0.30 0.00-0.30 normal C Reactive Protein Quantitativ H[facility]DA ([facility]) ID Date Data Source [id number] 01/09/2020 03:51:00 PM EST HILDA ([facility]) Name Value Range Interpretation Code Description Data Ellie rce(s) Supporting Document(s) cholesterol level 278 mg/dL <200 Above high normal Cholesterol Level HILDA ([facility]) triglycerides level 314 mg/dL <150 Above high normal Triglycer ides Level HILDA ([facility]) Cholesterol in LDL [Mass/volume] in Serum or Plasma 177 mg/dL <100 Above high normal LDL Cholesterol [facility]ILDA ([facility]) non-HDL-C 240 mg/dL normal Non-hdl-c HILDA ([facility]) cholesterol risk ratio <5 Above high normal Choles terol Risk Ratio HILDA ([facility]) HDL cholesterol 38 mg/dL >40 Below low normal HDL Cholestero l HILDA ([facility]) ID Date Data Source [id number] 01/09/2020 03:51:00 PM EST HILDA ([facility]) Name Value Range Interpretation Code Description Data Ellie rce(s) Supporting Document(s) C reactive protein quantitativ < 0.30 0.00-0.30 normal C Reactive Protein Quantitativ HILDA ([facility]) ID Date Data Source [id number] 01/09/2020 03:51:00 PM EST H[facility]DA ([facility]) Name Value Range Interpretation Code Description Data Ellie rce(s) Supporting Document(s) triglycerides level 314 mg/dL <150 Above high normal Triglycer ides Level HILDA ([facility]) cholesterol level 278 mg/dL <200 Above high normal Cholesterol Level H[facility]DA ([facility]) HDL cholesterol 38 mg/dL >40 Below low normal HDL Cholestero l HILDA ([facility]) non-HDL-C 240 mg/dL normal Non-hdl-c [facility]DA ([facility]) Cholesterol in LDL [Mass/volume] in Serum or Plasma 177 mg/dL <100 Above high normal LDL Cholesterol [facility] ([facility]) cholesterol risk ratio <5 Above high normal Choles terol Risk Ratio HILDA ([facility]) ID Date Data Source [id number] 01/09/2020 03:51:00 PM EST HILDA ([facility]) Name Value Range Interpretation Code Description Data Ellie rce(s) Supporting Document(s) C reactive protein quantitativ < 0.30 0.00-0.30 normal C Reactive Protein Quantitativ HILDA ([facility]) ID Date Data Source [id number] 01/09/2020 03:51:00 PM EST H[facility]DA ([facility]) Name Value Range Interpretation Code Description Data Ellie rce(s) Supporting Document(s) triglycerides level 314 mg/dL <150 Above high normal Triglycer ides Level HILDA ([facility]) HDL cholesterol 38 mg/dL >40 Below low normal HDL Cholestero l HILDA ([facility]) cholesterol level 278 mg/dL <200 Above high normal Cholesterol Level HILDA ([facility]) cholesterol risk ratio <5 Above high normal Choles terol Risk Ratio H[facility]DA ([facility]) non-HDL-C 240 mg/dL normal Non-hdl-c H[facility]DA ([facility]) Cholesterol in LDL [Mass/volume] in Serum or Plasma 177 mg/dL <100 Above high normal LDL Cholesterol [facility] ([facility]) ID Date Data Source [id number] 01/09/2020 03:51:00 PM EST [facility]DA ([facility]) Name Value Range Interpretation Code Description Data Ellie rce(s) Supporting Document(s) C reactive protein quantitativ < 0.30 0.00-0.30 normal C Reactive Protein Quantitativ H[facility]DA ([facility]) ID Date Data Source [id number] 01/09/2020 03:51:00 PM EST [facility]DA ([facility]) Name Value Range Interpretation Code Description Data Ellie rce(s) Supporting Document(s) cholesterol level 278 mg/dL <200 Above high normal Cholesterol Level H[facility]DA ([facility]) triglycerides level 314 mg/dL <150 Above high normal Triglycer ides Level HILDA ([facility]) cholesterol risk ratio <5 Above high normal Choles terol Risk Ratio H[facility]DA ([facility]) non-HDL-C 240 mg/dL normal Non-hdl-c [facility] ([facility]) HDL cholesterol 38 mg/dL >40 Below low normal HDL Cholestero l H[facility]DA ([facility]) Cholesterol in LDL [Mass/volume] in Serum or Plasma 177 mg/dL <100 Above high normal LDL Cholesterol [facility] ([facility]) ID Date Data Source [id number] 01/09/2020 03:51:00 PM EST [facility]ILDA ([facility]) Name Value Range Interpretation Code Description Data Ellie rce(s) Supporting Document(s) C reactive protein quantitativ < 0.30 0.00-0.30 normal C Reactive Protein Quantitativ [facility]DA ([facility]) ID Date Data Source [id number] 01/09/2020 03:51:00 PM EST [facility] ([facility]) Name Value Range Interpretation Code Description Data Ellie rce(s) Supporting Document(s) HDL cholesterol 38 mg/dL >40 Below low normal HDL Cholestero l [facility] ([facility]) triglycerides level 314 mg/dL <150 Above high normal Triglycer ides Level [facility]DA ([facility]) cholesterol level 278 mg/dL <200 Above high normal Cholesterol Level [facility] ([facility]) non-HDL-C 240 mg/dL normal Non-hdl-c [facility] ([facility]) cholesterol risk ratio <5 Above high normal Choles terol Risk Ratio [facility]DA ([facility]) Cholesterol in LDL [Mass/volume] in Serum or Plasma 177 mg/dL <100 Above high normal LDL Cholesterol HIL[facility] ([facility]) ID Date Data Source [id number] 01/09/2020 03:51:00 PM EST H[facility]DA ([facility]) Name Value Range Interpretation Code Description Data Ellie rce(s) Supporting Document(s) C reactive protein quantitativ < 0.30 0.00-0.30 normal C Reactive Protein Quantitativ [facility]ILDA ([facility]) ID Date Data Source [id number] 01/09/2020 03:51:00 PM EST HILDA ([facility]) Name Value Range Interpretation Code Description Data Ellie rce(s) Supporting Document(s) triglycerides level 314 mg/dL <150 Above high normal Triglycer ides Level HILDA ([facility]) cholesterol risk ratio <5 Above high normal Choles terol Risk Ratio HILDA ([facility]) Cholesterol in LDL [Mass/volume] in Serum or Plasma 177 mg/dL <100 Above high normal LDL Cholesterol HILDA ([facility]) HDL cholesterol 38 mg/dL >40 Below low normal HDL Cholestero l HILDA ([facility]) cholesterol level 278 mg/dL <200 Above high normal Cholesterol Level HILDA ([facility]) non-HDL-C 240 mg/dL normal Non-hdl-c [facility]DA ([facility]) ID Date Data Source [id number] 01/09/2020 03:51:00 PM EST [facility] Name Value Range Interpretation Code Description Data Ellie rce(s) Supporting Document(s) C reactive protein [Mass/volume] in Serum or Plasma by High sensitivity method Laboratory test result 0.00-0.30 MEDENT ([facility]) ID Date Data Source [id number] 01/09/2020 03:51:00 PM EST MEDENT ([facility]) Name Value Range Interpretation Code Description Data Ellie rce(s) Supporting Document(s) Triglycerides Level 314 mg/dL MED[facility] (Ca [facility]) HDL Cholesterol 38 mg/dL MED[facility] ([facility]) Cholesterol Level 278 mg/dL [facility] (Card [facility]) Cholesterol Risk Ratio 7.315 [facility] ([facility]) LDL Cholesterol 177 mg/dL [facility] ([facility]io [facility]) Non-HDL-C 240 mg/dL [facility] ([facility]) ID Date Data Source [id number] 12/17/2019 04:48:00 PM EST MEDENT ([facility]i [facility]) Name Value Range Interpretation Code Description Data Ellie rce(s) Supporting Document(s) White Blood Count 8.2 4.0-10.0 [facility] Red Blood Count 5.36 4.00-5.40 [facility] ([facility]) Hemoglobin 14.5 [facility] ([facility]) Platelets 248 172-450 MED[facility] (Cardiology [facility]) Hematocrit 45.1 [facility] ([facility]) ID Date Data Source [id number] 12/17/2019 04:48:00 PM EST [facility] ([facility]) Name Value Range Interpretation Code Description Data Ellie rce(s) Supporting Document(s) Magnesium Level 2.0 1.8-2.4 MED[facility] ([facility]io [facility]) Thyroid Stimulating Hormone 1.360 ME DENT ([facility]) Free T4 0.73 MED[facility] ([facility]) ID Date Data Source [id number] 12/17/2019 04:48:00 PM EST [facility] ([facility]) Name Value Range Interpretation Code Description Data Ellie rce(s) Supporting Document(s) Alanine aminotransferase [Enzymatic activity/volume] in Serum or Pl asma 39 MEDENT ([facility]) Albumin [Mass/volume] in Serum or Plasma 3.7 [facility] ([facility]) Calcium [Mass/volume] in Serum or Plasma 8.9 [facility] ([facility]) Carbon dioxide, total [Moles/volume] in Serum or Plasma 30 [facility] ([facility]) Chloride [Moles/volume] in Serum or Plasma 105 [facility] ([facility]) Alkaline phosphatase [Enzymatic activity/volume] in Serum or Plasma 8 0 [facility] ([facility]) Protein [Mass/volume] in Serum or Plasma 7.1 [facility] ([facility]) Potassium [Moles/volume] in Serum or Plasma 4.0 [facility] ([facility]) Sodium 142 [facility] ([facility]) Urea nitrogen [Mass/volume] in Serum or Plasma 20 [facility] ([facility]) Glucose 83 70-100 [facility] Aspartate aminotransferase [Enzymatic activity/volume] in Serum or Plasma 24 [facility] ([facility]) Creatinine For GFR 1.16 MED[facility] (Car [facility]) ID Date Data Source [id number] 12/16/2019 02:05:00 PM EST HILDA ([facility]) Name Value Range Interpretation Code Description Data Ellie rce(s) Supporting Document(s) ID Date Data Source [id number] 12/16/2019 02:05:00 PM EST HILDA ([facility]) Name Value Range Interpretation Code Description Data Ellie rce(s) Supporting Document(s) ID Date Data Source [id number] 12/16/2019 02:05:00 PM EST HILDA ([facility]) Name Value Range Interpretation Code Description Data Ellie rce(s) Supporting Document(s) ID Date Data Source [id number] 12/16/2019 02:05:00 PM EST HILDA ([facility]) Name Value Range Interpretation Code Description Data Ellie rce(s) Supporting Document(s) ID Date Data Source [id number] 12/16/2019 02:05:00 PM EST HILDA ([facility]) Name Value Range Interpretation Code Description Data Ellie rce(s) Supporting Document(s) ID Date Data Source [id number] 12/16/2019 02:05:00 PM EST HILDA ([facility]) Name Value Range Interpretation Code Description Data Ellie rce(s) Supporting Document(s) ID Date Data Source [id number] 12/16/2019 02:05:00 PM EST HILDA ([facility]) Name Value Range Interpretation Code Description Data Ellie rce(s) Supporting Document(s) ID Date Data Source [id number] 12/16/2019 02:05:00 PM EST HILDA ([facility]) Name Value Range Interpretation Code Description Data Ellie rce(s) Supporting Document(s) ID Date Data Source [id number] 12/16/2019 02:05:00 PM EST HILDA ([facility]) Name Value Range Interpretation Code Description Data Ellie rce(s) Supporting Document(s) ID Date Data Source [id number] 12/16/2019 02:05:00 PM EST HILDA ([facility]) Name Value Range Interpretation Code Description Data Ellie rce(s) Supporting Document(s) ID Date Data Source [id number] 12/16/2019 02:05:00 PM EST HILDA ([facility]) Name Value Range Interpretation Code Description Data Ellie rce(s) Supporting Document(s) ID Date Data Source [id number] 12/16/2019 02:05:00 PM EST HILDA ([facility]) Name Value Range Interpretation Code Description Data Ellie rce(s) Supporting Document(s) ID Date Data Source [id number] 12/16/2019 02:05:00 PM EST HILDA [facility]) Name Value Range Interpretation Code Description Data Ellie rce(s) Supporting Document(s) ID Date Data Source [id number] 12/16/2019 02:05:00 PM EST HILDA ([facility]) Name Value Range Interpretation Code Description Data Ellie rce(s) Supporting Document(s) ID Date Data Source [id number] 12/11/2019 04:30:00 AM EST HILDA ([facility]) Name Value Range Interpretation Code Description Data Ellie rce(s) Supporting Document(s) SARS-CoV-2 (COVID-19) RNA [Presence] in Respiratory specimen by HITESH with probe detection not detected not detected normal Sars Cov 2 RNA [facility]) ID Date Data Source [id number] 12/11/2019 04:30:00 AM [facility] Name Value Range Interpretation Code Description Data Ellie rce(s) Supporting Document(s) SARS-CoV-2 (COVID-19) RNA [Presence] in Respiratory specimen by HITESH with probe detection not detected not detected normal Sars Cov 2 RNA [facility]) ID Date Data Source [id number] 12/11/2019 04:30:00 AM [facility] Name Value Range Interpretation Code Description Data Ellie rce(s) Supporting Document(s) SARS-CoV-2 (COVID-19) RNA [Presence] in Respiratory specimen by HITESH with probe detection not detected not detected normal Sars Cov 2 RNA [facility]) ID Date Data Source [id number] 12/11/2019 04:30:00 AM EST [facility]) Name Value Range Interpretation Code Description Data Ellie rce(s) Supporting Document(s) SARS-CoV-2 (COVID-19) RNA [Presence] in Respiratory specimen by HITESH with probe detection not detected not detected normal Sars Cov 2 RNA [facility]) ID Date Data Source [id number] 12/11/2019 04:30:00 AM EST [facility] ([facility]) Name Value Range Interpretation Code Description Data Ellie rce(s) Supporting Document(s) SARS-CoV-2 (COVID-19) RNA [Presence] in Respiratory specimen by HITESH with probe detection not detected not detected normal Sars Cov 2 RNA [facility]) ID Date Data Source [id number] 12/11/2019 04:30:00 AM EST [facility]) Name Value Range Interpretation Code Description Data Ellie rce(s) Supporting Document(s) SARS-CoV-2 (COVID-19) RNA [Presence] in Respiratory specimen by HITESH with probe detection not detected not detected normal Sars Cov 2 RNA [facility]) ID Date Data Source [id number] 12/11/2019 04:30:00 AM EST [facility]) Name Value Range Interpretation Code Description Data Ellie rce(s) Supporting Document(s) SARS-CoV-2 (COVID-19) RNA [Presence] in Respiratory specimen by HITESH with probe detection not detected not detected normal Sars Cov 2 RNA [facility]) ID Date Data Source [id number] 12/11/2019 04:30:00 AM EST [facility]) Name Value Range Interpretation Code Description Data Ellie rce(s) Supporting Document(s) SARS-CoV-2 (COVID-19) RNA [Presence] in Respiratory specimen by HITESH with probe detection not detected not detected normal Sars Cov 2 RNA [facility]) ID Date Data Source [id number] 12/11/2019 04:30:00 AM EST [facility]) Name Value Range Interpretation Code Description Data Ellie rce(s) Supporting Document(s) SARS-CoV-2 (COVID-19) RNA [Presence] in Respiratory specimen by HITESH with probe detection not detected not detected normal Sars Cov 2 RNA HILDA ([facility]) ID Date Data Source [id number] 12/11/2019 04:30:00 AM EST HILDA ([facility]) Name Value Range Interpretation Code Description Data Ellie rce(s) Supporting Document(s) SARS-CoV-2 (COVID-19) RNA [Presence] in Respiratory specimen by HITESH with probe detection not detected not detected normal Sars Cov 2 RNA [facility] ([facility]) ID Date Data Source [id number] 12/11/2019 04:30:00 AM EST HILDA ([facility]) Name Value Range Interpretation Code Description Data Ellie rce(s) Supporting Document(s) SARS coronavirus 2 RNA [Presence] in Res piratory specimen by HITESH with probe detection not detected not detected normal Sars Cov 2 RNA [facility]) ID Date Data Source [id number] 12/11/2019 04:30:00 AM [facility] Name Value Range Interpretation Code Description Data Ellie rce(s) Supporting Document(s) SARS coronavirus 2 RNA [Presence] in Res piratory specimen by HITESH with probe detection not detected not detected normal Sars Cov 2 RNA [facility]) ID Date Data Source [id number] 12/11/2019 04:30:00 AM EST HILDA ([facility]) Name Value Range Interpretation Code Description Data Ellie rce(s) Supporting Document(s) SARS coronavirus 2 RNA [Presence] in Res piratory specimen by HITESH with probe detection not detected not detected normal Sars Cov 2 RNA HILDA ([facility]) ID Date Data Source [id number] 12/11/2019 04:30:00 AM [facility] Name Value Range Interpretation Code Description Data Ellie rce(s) Supporting Document(s) SARS coronavirus 2 RNA [Presence] in Res piratory specimen by HITESH with probe detection not detected not detected normal Sars Cov 2 RNA [facility]ILDA ([facility]) ID Date Data Source [id number] 12/11/2019 04:30:00 AM EST [facility] Name Value Range Interpretation Code Description Data Ellie rce(s) Supporting Document(s) SARS-COV-2 RNA RESP QL HITESH+PROBE [facility] This lab was ordered by [facility] and reported by [facility]. ID Date Data Source [id number] 10/28/2019 05:05:00 PM EDT MEDENT ([facility]) Name Value Range Interpretation Code Description Data Ellie rce(s) Supporting Document(s) Troponin Laboratory test result [facility] ([facility]) ID Date Data Source [id number] 10/28/2019 05:05:00 PM EDT [facility] ([facility]) Name Value Range Interpretation Code Description Data Ellie rce(s) Supporting Document(s) Creatine kinase [Enzymatic activity/volume] in Serum or Plasma 359 MEDENT ([facility]) CPK-MB Laboratory test result MEDENT (Cardiology [facility]) ID Date Data Source [id number] 10/28/2019 03:32:56 PM EDT [facility] Measurements & CalculationsHeight: 72 inches (6 ft. 0 in.) 182.88 cm Weight: 222.2 pounds 101 kg Body Mass Index (BMI): 30.24BMI Interpretation: ObeseBody Surface Area (BSA): 2.23Weight Management Education Done (Nutrition/Physical Activity)Vital SignsTemperature: 97.8F 36.56C tympanic Pulse Rate: 82 beats/minuteRespiratory Rate: 18 respirations/minuteBlood Pressure: 134/70 left arm sitting automaticO2 Saturation: 97% Vital Signs performed by: Camila Whatley LPN, October 28, 2019 3:33 PMInitial Intake Information From: patientRoom #: 1Infectious Disease / Travel ScreeningRecent travel for you or any close contacts? NoHave you had any close contact with anyone diagnosed with or under investigation for COVID-19 (coronavirus)? NoFever? NoRespiratory symptoms: cough, cold, congestion, shortness of breath, difficulty breathing? NoLoss of smell? NoLoss of taste? NoSmoking, Tobacco, Vaping or Smoke Exposure StatusSmoke Status: never smokerTobacco Use: NoDo you vape? NoPassive Smoke Exposure: NoHealthcare HistorySince your last office visit...Have you been admitted to the hospital? NoHave you been to an emergency room (ER) or urgent care clinic? Yes - panic attackEmergency room (ER) or urgent care date reported today: 10/28/2019Have you seen another healthcare provider? NoHave you seen a dentist? NoIntake performed by: Camila Whatley LPN, October 28, 2019 3:34 PMRate Your HealthIn general, would you say your health is? ExcellentPain AssessmentAre you currently having any pain which... You would like your provider to address? No Affects your activity level? NoDepression Screening - PHQ-2Over the last two weeks, have you... Had little interest or pleasure in doing things? Several days Been feeling down, depressed, or hopeless? Several days PHQ-2 Score: 2Anxiety Screening - BRIGIDO-2Over the last two weeks, have you been... Feeling nervous, anxious, or on edge? Several days Unable to stop or control worrying? Several days BRIGIDO-2 Score: 2Food InsecurityWithin the past year...Did you worry whether your food would run out before you got money to buy more? Never trueWas there a time when the food you bought didn't last and you didn't have money to get more? Never trueGeneralized Anxiety Disorder 7-Item Screening (BRIGIDO-7)Answer Guide:0 = Not at all1 = Several days2 = Over half the days3 = Nearly every dayOver the last 2 weeks, how often have you been bothered by the following problems?Feeling nervous, anxious, or on edge: 1Not being able to stop or control worryinWorrying too much about different things: 1Trouble relaxinBeing so restless that it's hard to sit still: 1Becoming easily annoyed or irritable: 1Feeling afraid as if something awful might happen: 1Answer Guide:0 = Not difficult at all1 = Somewhat difficult2 = Very difficult3 = Extremely difficultHow difficult have these made it for you to do your work, take care of things at home, or get along with other people? 1GAD-7 Screening Results BRIGIDO-2 Score: 2GAD-7 Score: 7Functional Impairment: Somewhat difficultRecommendation: Mild anxietyPHQ-9 1. Over the last 2 weeks, patient reports the following frequency of symptoms: a. Little interest or pleasure in doing things -Several days b. Feeling down, depressed, or hopeless -Several days c. Trouble falling asleep, staying asleep, or sleeping too much -Several days d. Feeling tired or having little energy -Several days e. Poor appetite or overeating -Several days f. Feeling bad about yourself, feeling that you are a failure, or feeling that you have let yourself or your family down - Several days g. Trouble concentrating on things such as reading the newspaper or watching television -Several days h. Moving or speaking so slowly that other people could have noticed. Or being so fidgety or restless that you have been moving around a lot more than usual -Several days i. Thinking that you would be better off or that you want to hurt yourself in some way -Not at all2. If you checked off any problems, how difficult have these problems made it for you to do your work, take care of things at home, or get along with other people? -Somewhat DifficultToday's PHQ-9 Results Score: 8 Severity: Mild Diagnosis Recommendation: No recommendation Functional Impairment: Somewhat DifficultToday's Follow-Up Action Depression follow-up done. Follow-Up Action: Showing Improvement, No Changes NecessaryScreening, Brief Intervention, & Referral to Treatment (SBIRT)Pre-Screening Questions How many times have you have 5 or more drinks in a day? 0How many times have you used an illegal drug or used a prescription medication for a non-medical reason? 0Performed by: Camila Whatley LPN, October 28, 2019 3:36 PMPatient History Medical History:Anxiety/panicInsomniaSurgical History:Family History:TJD-vbmkziMzwfbuv-aitokuhUgweft/Personal History:Smoking History:Patient has never smoked. Chief Complaintfollow-up visitHistory of Present Illness (HPI)Pt is a 29 y/o male, presents for anxiety follow-up.Pt states everything has been going quite well. Reports he is eating healthier, exercising, meditation, stretching, taking Lexapro daily and hydroxyzine at bedtime (falls asleep but doesn't stay asleep, denies AM grogginess). Has been seen by Merlene for therapy on 10/10/2019 for intake, not scheduled next until 11/05/2019. Admits to ongoing "life problems" and having an "eventful day". Admits to breaking his bedtime routine by skipping meditation and reading, only stretched, and didn't exercise yesterday. Still feels well today; denies headache, clenched jaw, sadness/scared/depressed. Pt also was seen in [facility] ER last night/this morning for panic attack. States this panic attack felt "different" and felt more chest tightness this time. EKG and labs were unactionable. No medications were adjusted. Would like to see cardiology for clearance. Pt's brother has a loop recorder for syncopal spells, mother takes high blood pressure medicine. Pt reports his resting heart rate around 50-60s. Transitions of Care InboundProblem ReviewProblem List was reviewed and/or updated during this visit.Medication Reconciliation & ReviewMedication List was reviewed and/or updated during this visit, including review of any dhcq-sgb-kwcugkq medications, herbal therapies, and/or supplements.Allergy ReviewAllergy List was reviewed and/or updated during this visit. Patient has no known allergies.Adult Preventive CareLabs/Meds/Other Counseling-Nutrition and Physical Activity:BMI I nterpretation: Obese (10/28/2019) Counseling: Done (10/28/2019) Physical Activity: Done (10/28/2019)Review of Systems General: Denies loss of appetite, chills, dizziness, fatigue, fever, headache, feeling ill. Cardiovascular: Complains of see HPI. Respiratory: Denies cough, difficulty breathing, excessive sputum, wheezing. Gastrointestinal: Denies nausea, vomiting, diarrhea, pain or discomfort. Psychiatric: Complains of see HPI. Physical ExamGeneral Appearance: well nourished, well hydrated, no acute distressEyes, External: conjunctivae and lids normal, EOMIRespiratory, Auscultation: clear to auscultation bilaterally; no rales, rhonchi, or wheezesRespiratory, Effort: no intercostal retractions or use of accessory musclesCardiovascular, Auscultation: S1, S2 audible; no murmur, rub, or gallop; RRRPeripheral Circulation: no clubbing, cyanosis, edema, or varicositiesAbdomen: soft, non-tender, no masses, bowel sounds normalGait & Station: normalOrientation: oriented to time, place, and personMood & Affect: mildly anxious appearing, good eye contact, speech clear, fidgitingJudgment & Insight: intactCare Management Plan Transitions of CareInboundRate Your HealthIn general, would you say your health is? ExcellentAssessment & Plan Problems:Added: Chronic insomnia (TDH15-C27.04) Assessment: Instructions: As above.Chest pain, unspecified (VCN30-U23.9) Assessment: Instructions: Referral to cardiology for evaluation. Unlikely to be cardiac in nature with frequent labs/EKG.Bradycardia (ICD-427.89) (ICD10- R00.1) Assessment: Instructions: Likely secondary to routine fitness levels. However, given brother's syncopal episodes and loop recorder, will refer to cardiology for evaluation.Assessed:GENERALIZED ANXIETY DISORDER (ICD- 300.02) (TYR37-X78.1) Assessment: Instructions: Continue current Lexapro daily and hydroxyzine 10mg during the day as needed. Increase hydroxyzine to 25mg 1-2 tablets as needed for insomnia. Continue with current relaxation techniques and pending appointment with [facility].Patient Instructions/Care Plan: GENERALIZED ANXIETY DISORDER: Continue current Lexapro daily and hydroxyzine 10mg during the day as needed. Increase hydroxyzine to 25mg 1-2 tablets as needed for insomnia. Continue with current relaxation techniques and pending appointment with [facility].Chronic insomnia: As above.Chest pain- unspecified: Referral to cardiology for evaluation. Unlikely to be cardiac in nature with frequent labs/EKG.Bradycardia: Likely secondary to routine fitness levels. However, given brother's syncopal episodes and loop recorder, will refer to car diology for evaluation. Plan developed in collaboration with patient and/or familyMedications:HYDROXYZINE HCL 25 MG ORAL TABLETOMEPRAZOLE 20 MG ORAL TABLET DELAYED RELEASELORAZEPAM 1 MG ORAL TABLETHYDROXYZINE HCL 10 MG ORAL TABLETMedication Changes:Added: LEXAPRO 10 MG ORAL TABLET-one tablet dailyNew Prescription:HYDROXYZINE HCL 25 MG ORAL TABLET-Take 1-2 tablets by mouth at bedtime prn insomnia Qty: 60[Tablet] Refills: 1 Method: ElectronicChanged:From: ORAL HYDROXYZINE HCL 10 MG ORAL TABLET Qty: [id number] Refills: 30[Tablet] To: HYDROXYZINE HCL 10 MG ORAL TABLET-Take 1 tablet po q 6 hrs prnAllergies:No Known Allergies (updated 10/28/2019) Orders:Cardiology Consult [CPT-17663] Adult - Ofc Vst, EST, Level III [CPT- 78965] Follow-Up Return to clinic: in 2 months for follow upAdditional Follow- Up: cardio referral, anxietyClinical Visit Summary CompletedMedications:HYDROXYZINE HCL 25 MG ORAL TABLET (HYDROXYZINE HCL) Take 1- 2 tablets by mouth at bedtime prn insomnia #60[Tablet] x 1 Route:ORAL Entered and Authorized by: Terry AGUAYO Method used: Electronically to [id number]* (retail) [id number] [address] [place] [address] Note to Pharmacy: Route: ORAL; Indications: CHRONIC INSOMNIA;GENERALIZED ANXIETY DISORDER RxID: [id number] signed by Terry AGUAYO on 11/13/2019 at 8:30 AM Name Value Range Interpretation Code Description Data Ellie rce(s) Supporting Document(s) ID Date Data Source [id number] 10/28/2019 02:21:00 AM EDT [facility] Name Value Range Interpretation Code Description Data Ellie rce(s) Supporting Document(s) HCT 45.6 % 42.0-52.0 N [facility] HGB 14.9 g/dL 13.5-17.5 N [facility] MCH 32.7 G/DL pg 32.0-36.5 N [facility] MCHC 27.6 PG % 27.0-33.0 N [facility] PLATELETS 259 10 10*3/mm3 150-450 N [facility] Family [facility] RBC 5.40 10 10*6/mm3 4.30-6.10 N [facility] RDW 13.2 % 11.5-14.5 N [facility] WBC TOTAL 10.0 4.0-10.0 N [facility] Family [facility] ID Date Data Source [id number] 10/28/2019 02:21:00 AM EDT [facility] Name Value Range Interpretation Code Description Data [facility] rce(s) Supporting Document(s) BG FASTING 102 mg/dL 70-100 [facility] y Health ID Date Data Source [id number] 09/30/2019 01:44:56 PM EDT [facility] Measurements & CalculationsHeight: 72 inches (6 ft. 0 in.) 182.88 cm Weight: 221.2 pounds 100.55 kg Body Mass Index (BMI): 30.11BMI Interpretation: ObeseBody Surface Area (BSA): 2.23Weight Management Education Done (Nutrition/Physical Activity)Vital SignsTemperature: 96.2F 35.67C tympanic Pulse Rate: 67 beats/my teRespiratory Rate: 18 respirations/minuteBlood Pressure: 135/79 left arm sitting automaticO2 Saturation: 96% Vital Signs performed by: Camila Whatley LPN, September 30, 2019 1:45 PMMultiple Vital SignsInitial BP: 148/91Vitals #2BP: 135/79 (primary)Performed by: Camila Whatley LPN, September 30, 2019 2:15 PMInitial Intake Information From: patientRoom #: 1Infectious Disease / Travel ScreeningRecent travel for you or any close contacts? NoHave you had any close contact with anyone diagnosed with or under investigation for COVID-19 (coronavirus)? NoFever? NoRespiratory symptoms: cough, cold, congestion, shortness of breath, difficulty breathing? NoLoss of smell? NoLoss of taste? NoSmoking, Tobacco, Vaping or Smoke Exposure StatusSmoke Status: never smokerTobacco Use: NoDo you vape? NoPassive Smoke Exposure: NoHealthcare HistorySince your last office visit...Have you been admitted to the hospital? NoHave you been to an emergency room (ER) or urgent care clinic? Yes - ANXEmergency room (ER) or urgent care date reported today: 09/29/2019Have you seen another healthcare provider? NoHave you seen a dentist? NoIntake performed by: Camila Whatley LPN, September 30, 2019 1:47 PMRate Your HealthIn general, would you say your health is? GoodPain AssessmentAre you currently having any pain which... You would like your provider to address? Yes Affects your activity level? YesDepression Screening - PHQ-2Over the last two weeks, have you... Had little interest or pleasure in doing things? More than half the days Been feeling down, depressed, or hopeless? More than half the days PHQ-2 Score: 4Anxiety Screening - BRIGIDO-2Over the last two weeks, have you been... Feeling nervous, anxious, or on edge? More than half the days Unable to stop or control worrying? More than half the days BRIGIDO-2 Score: 4Food InsecurityWithin the past year...Did you worry whether your food would run out before you got money to buy more? Never trueWas there a time when the food you bought didn't last and you didn't have money to get more? Never truePain AssessmentLocation: headacheScreening, Brief Intervention, & Referral to Treatment (SBIRT)Pre-Screening Questions How many times have you have 5 or more drinks in a day? 0How many times have you used an illegal drug or used a prescription medication for a non-medical reason? 0Performed by: Camila Whatley LPN, September 30, 2019 1:49 PMPatient History Medical History:UnremarkableSurgical History:Family History:Social/Personal History:Smoking History:Patient has never smoked. Chief Complainthosp f/uHistory of Present Illness (HPI)28 yo male presents for [facility] ER f/u. Pt states he has been having terrible migraines for a few days and yesterday woke up with heart racing, feeling like "brain on fire" and chest tightness. Went to [facility] ED last night and was released this morning. No records in chart, pt brought brief documentation from the ER. Had EKG, blood work, chest xray. Still has headache but less severe. States he takes lowest dose of Hydroxyzine, cut back to taking 1 tablet po daily at bedtime because he doesn't like taking medication. States he ran out of the Lorazepam and states that is why he went to the ER since he didn't have anything to take for a panic attack. Scheduled 10/10/2019 for initial counseling services. Pt was discharged with pantoprazole 40mg BID, but didn't pickup due to not being aware. Has also only been on the Omeprazole x 5 days. HPI performed by: Terry AGUAYO, September 30, 2019 1:57 PMTransitions of Care InboundProblem ReviewProblem List was reviewed and/or updated during this visit.Medication Reconciliation & ReviewMedication List was reviewed and/or updated during this visit, including review of any hhha-lmq-yqcqysq medications, herbal therapies, and/or supplements.Allergy ReviewAllergy List was reviewed and/or updated during this visit. Patient has no known allergies.Adult Preventive CareLabs/Meds/Other Counseling-Nutrition and Physical Activity:BMI Interpretation: Obese (09/30/2019) Counseling: Done (09/30/2019) Physical Activity: Done (09/30/2019)Review of Systems General: Complains of headache. Denies chills, dizziness, fatigue, fever. Cardiovascular: Complains of see HPI. Respiratory: Denies cough, difficulty breathing, shortness of breath. Gastrointestinal: Complains of see HPI, heartburn. Denies nausea, vomiting, diarrhea, constipation. Neurologic: Denies weakness, numbness/tingling. Psychiatric: Complains of see HPI, anxiety, feeling stressed. Physical ExamGeneral Appearance: well nourished, well hydrated, no acute distressEyes, External: conjunctivae and lids normal, EOMIRespiratory, Auscultation: clear to auscultation bilaterally; no rales, rhonchi, or wheezesCardiovascular, Auscultation: S1, S2 audible; no murmur, rub, or gallop; RRRPeripheral Circulation: no clubbing, cyanosis, edema, or varicositiesAbdomen: soft, non-tender, no masses, bowel sounds normalGait & Station: normalOrientation: oriented to time, place, and personMood & Affect: mildly anxious appearing, good eye contact, speech clear, fidgitingJudgment & Insight: intactCare Management Plan Transitions of CareInboundRate Your HealthIn general, would you say your health is? GoodAssessment & Plan Problems:Assessed:Adjustment disorder with mixed emotional features (ICD-309.28) (YKH18-T48.23) Assessment: Instructions: Continue Lexapro daily. Hydroxyzine may be taken up to 2 tablets every 6 hrs daily as needed, with last dose at bedtime for insomnia. Ativan for severe panic, take 1/2 tablet to start and if no relief after 30 minutes then take second 1/2. New Rx sent for short supply.C/O - panic attack (ICD-300.01) (OVH09-F70.0) Assessment: Instructions: As above.Gastro-esophageal reflux disease without esophagitis (ICD-530.81) (OJC76-K12.9) Assessment: Instructions: Continue omeprazole as prescribed. Hold off on pantoprazole at this time, we haven't given the omeprazole time to see if it is going to be effective.Patient Instructions/Care Plan: Adjustment disorder with mixed emotional features: Continue Lexapro daily. Hydroxyzine may be taken up to 2 tablets every 6 hrs daily as needed, with last dose at bedtime for insomnia. Ativan for severe panic, take 1/2 tablet to start and if no relief after 30 minutes then take second 1/2. New Rx sent for short supply.C/O - panic attack: As above.Gastro-esophageal reflux disease without esophagitis: Continue omeprazole as prescribed. Hold off on pantoprazole at this time, we haven't given the omeprazole time to see if it is going to be effective. Plan developed in collaboration with patient and/or familyMedications:OMEPRAZOLE 20 MG ORAL TABLET DELAYED RELEASELORAZEPAM 1 MG ORAL TABLETHYDROXYZINE HCL 10 MG ORAL TABLETMedication Changes:Refilled:LORAZEPAM 1 MG ORAL TABLET-Take 0.5-1 tablet po daily in the evening: MDD 1mg Qty: 7[Tablet] Refills: 0 Method: ElectronicAllergies:No Known Allergies (updated 09/30/2019) Orders:Adult - Ofc Vst, EST, Level III [CPT -49084] Follow-Up Return to clinic: as needed, as scheduled Clinical Visit Summary Completed Name Value Range Interpretation Code Description Data Ellie rce(s) Supporting Document(s) ID Date Data Source [id number] 09/30/2019 03:16:00 AM EDT [facility] Name Value Range Interpretation Code Description Data Ellie rce(s) Supporting Document(s) HCT 43.9 % 42.0-52.0 [facility] HGB 15.1 g/dL 13.5-17.5 [facility] MCH 34.4 G/DL pg 32.0-36.5 [facility] MCHC 28.9 PG % 27.0-33.0 [facility] PLATELETS 263 10 10*3/mm3 150-450 N [facility] RBC 5.22 10 10*6/mm3 4.30-6.10 [facility] RDW 13.0 % 11.5-14.5 [facility] WBC TOTAL 8.2 4.0-10.0 [facility] ID Date Data Source [id number] 09/30/2019 03:16:00 AM EDT [facility] Name Value Range Interpretation Code Description Data Ellie rce(s) Supporting Document(s) BG FASTING 100 mg/dL 70-100 N [facility] T4, FREE 1.04 ng/dL 0.76-1.46 N [facility] TSH 2.080 microintl units/mL 0.358-3.740 N [facility] ID Date Data Source [id number] 09/24/2019 10:48:08 AM EDT [facility] Measurements & CalculationsHeight: 72 inches (6 ft. 0 in.) 182.88 cm Weight: 221.4 pounds 100.64 kg Body Mass Index (BMI): 30.14BMI Interpretation: ObeseBody Surface Area (BSA): 2.23Weight Management Education Done (Nutrition/Physical Activity)Vital SignsTemperature: 96.1F 35.61C tympanic Pulse Rate: 71 beats/my teRespiratory Rate: 18 respirations/minuteBlood Pressure: 122/74 left arm laying automaticO2 Saturation: 97% Vital Signs performed by: Camila Whatley LPN, September 24, 2019 10:48 AMInitial Intake Information From: patientRoom #: 1Infectious Disease / Travel ScreeningRecent travel for you or any close contacts? NoHave you had any close contact with anyone diagnosed with or under investigation for COVID-19 (coronavirus)? NoFever? NoRespiratory symptoms: cough, cold, congestion, shortness of breath, difficulty breathing? NoLoss of smell? NoLoss of taste? NoSmoking, Tobacco, Vaping or Smoke Exposure StatusSmoke Status: never smokerTobacco Use: NoDo you vape? NoPassive Smoke Exposure: NoHealthcare HistorySince your last office visit...Have you been admitted to the hospital? NoHave you been to an emergency room (ER) or urgent care clinic? NoHave you seen another healthcare provider? NoHave you seen a dentist? NoIntake performed by: Camila Whatley LPN, September 24, 2019 10:50 AMRate Your HealthIn general, would you say your health is? GoodPain AssessmentAre you currently having any pain which... You would like your provider to address? Yes Affects your activity level? NoDepression Screening - PHQ-2Over the last two weeks, have you... Had little interest or pleasure in doing things? More than half the days Been feeling down, depressed, or hopeless? More than half the days PHQ-2 Score: 4Anxiety Screening - BRIGIDO-2Over the last two weeks, have you been... Feeling nervous, anxious, or on edge? More than half the days Unable to stop or control worrying? More than half the days BRIGIDO-2 Score: 4Food InsecurityWithin the past year...Did you worry whether your food would run out before you got money to buy more? NoWas there a time when the food you bought didn't last and you didn't have money to get more? NoGeneralized Anxiety Disorder 7-Item Screening (BRIGIDO-7)Answer Guide:0 = Not at all1 = Several days2 = Over half the days3 = Nearly every dayOver the last 2 weeks, how often have you been bothered by the following problems?Feeling nervous, anxious, or on edge: 2Not being able to stop or control worryinWorrying too much about different things: 2Trouble relaxinBeing so restless that it's hard to sit still: 2Becoming easily annoyed or irritable: 2Feeling afraid as if something awful might happen: 2Answer Guide:0 = Not difficult at all1 = Somewhat difficult2 = Very difficult3 = Extremely difficultHow difficult have these made it for you to do your work, take care of things at home, or get along with other people? 2GAD-7 Screening Results BRIGIDO-2 Score: 4GAD-7 Score: 14Functional Impairment: Very difficultRecommendation: Moderate anxietyPHQ-9 1. Over the last 2 weeks, patient reports the following frequency of symptoms: a. Little interest or pleasure in doing things - More than half the days b. Feeling down, depressed, or hopeless -More than half the days c. Trouble falling asleep, staying asleep, or sleeping too much -More than half the days d. Feeling tired or having little energy -More than half the days e. Poor appetite or overeating -More than half the days f. Feeling bad about yourself, feeling that you are a failure, or feeling that you have let yourself or your family down -More than half the days g. Trouble concentrating on things such as reading the newspaper or watching television -More than half the days h. Moving or speaking so slowly that other people could have noticed. Or being so fidgety or restless that you have been moving around a lot more than usual - More than half the days i. Thinking that you would be better off or that you want to hurt yourself in some way -Not at all2. If you checked off any problems, how difficult have these problems made it for you to do your work, take care of things at home, or get along with other people? -Very DifficultToday's PHQ-9 Results Score: 16 Severity: Moderately Severe Diagnosis Recommendation: Major Depression Functional Impairment: Very DifficultTo's Follow-Up Action Depression follow-up done. Follow-Up Action: Continue To Take Medications as PrescribedPain AssessmentLocation: arms/chestDuration: 1 monthFrequency: DailyCharacter/Quality: burningScreening, Brief Intervention, & Referral to Treatment (SBIRT)Pre-Screening Questions How many times have you have 5 or more drinks in a day? 0How many times have you used an illegal drug or used a prescription medication for a non-medical reason? 0Performed by: Camila Whatley LPN, September 24, 2019 10:52 AMPatient History Medical History:UnremarkableSurgical History:Family History:Social/Personal History:Smoking History:Patient has never smoked. Chief Complaintfollow-up visitHistory of Present Illness (HPI)28 yo male presents for mood f/u.Pt was started on Lexapro 10mg daily on 09/10/2019. Pt reports last panic attack was 09/19/2019 when his dog startled him. Has started meditating twice daily, is very happy to have the gyms open next week, improving his food choices to health ier options. Pending referral for counseling services in house. Pt states he has burning in his chest/stomach and he feels it into his arms. Can't remember how long it has been there. States hx of severe acid reflux as a child, reports a "hole in his stomach", stopped around age 12.Problem ReviewProblem List was reviewed and/or updated during this visit.Medication Reconciliation & Revi ewMedication List was reviewed and/or updated during this visit, including review of any spfv-kpm-ozycnef medications, herbal therapies, and/or supplements.Allergy ReviewAllergy List was reviewed and/or updated during this visit. Patient has no known allergies.Adult Preventive CareLabs/Meds/Other Counseling-Nutrition and Physical Activity:BMI Interpretation: Obese (09/24/2019) Counseling: Done (09/24/2019) Physical Activity: Done (09/24/2019)Review of Systems General: Denies loss of appetite, chills, dizziness, fatigue, fever, headache, feeling ill. Cardiovascular: Denies chest pain, palpitations, feeling faint, peripheral edema. Respiratory: Denies cough, difficulty breathing, shortness of breath, excessive sputum, coughing up blood, wheezing. Gastrointestinal: Complains of see HPI, pain or discomfort, heartburn. Denies vomiting, bleeding, diarrhea, constipation, abdominal pain, blood in stool, black or tarry stools. Skin: Denies rash, redness. Neurologic: Denies weakness, numbness/tingling, feeling faint. Psychiatric: Complains of see HPI, depression, anxiety, feeling stressed. Physical ExamGeneral Appearance: well nourished, well hydrated, no acute distressEyes, External: conj unctivae and lids normal, EOMIRespiratory, Auscultation: clear to auscultation bilaterally; no rales, rhonchi, or wheezesRespiratory, Effort: no intercostal retractions or use of accessory musclesCardiovascular, Auscultation: S1, S2 audible; no murmur, rub, or gallop; RRRPeripheral Circulation: no clubbing, cyanosis, edema, or varicositiesAbdomen: soft, non-tender, no masses, bowel sounds normalGait & Station: normalOrientation: oriented to time, place, and personMood & Affect: mildly anxious appearing, tearful at timesJudgment & Insight: intactCare Management Plan Medication Adherence & Education Information on new prescriptions provided to patient/family/caregiver.Rate Your HealthIn general, would you say your health is? GoodAssessment & Plan Problems:Added: Gastro-esophageal reflux disease without esophagitis (ICD- 530.81) (VHJ65-D23.9) Assessment: Instructions: Start omeprazole as prescribed. Low acid diet reviewed.Assessed:Adjustment disorder with mixed emotional features (ICD-309.28) (VGY88-J16.23) Assessment: Instructions: Continue Lexapro daily, hydroxyzine as needed during the daytime and certainly at night for evening anxiety. Ativan only for severe panic. Pending referral for counseling services.C/O - panic attack (ICD-300.01) (ATO62-A40.0) Assessment: Instructions: Improving and less frequent.Removed:Nicotine dependence, cigarettes, uncomplicated (LSZ71-A63.210)Patient Instructions/Care Plan: Adjustment disorder with mixed emotional features: Continue Lexapro daily, hydroxyzine as needed during the daytime and certainly at night for evening anxiety. Ativan only for severe panic. Pending referral for counseling services.C/O - panic attack: Improving and less frequent.Gastro-esophageal reflux disease without esophagitis: Start omeprazole as prescribed. Low acid diet reviewed. Plan developed in collaboration with patient and/or familyMedications:OMEPRAZOLE 20 MG ORAL TABLET DELAYED RELEASELORAZEPAM 1 MG ORAL TABLETHYDROXYZINE HCL 10 MG ORAL TABLETLEXAPRO 10 MG ORAL TABLETMedication Changes:New Prescription:OMEPRAZOLE 20 MG ORAL TABLET DELAYED RELEASE-Take 1 tablet po QAM on an empty stomach Qty: 30[Tablet] Refills: 1 Method: ElectronicAllergies:No Known Allergies (updated 09/24/2019) Information on new prescriptions provided to patient.Orders:Adult - Ofc Vst, EST, Level III [CPT- 13693] Follow-Up Return to clinic: in 4 weeks for follow upAdditional Follow-Up: med checkClinical Visit Summary CompletedMedications:OMEPRAZOLE 20 MG ORAL TABLET DELAYED RELEASE (OMEPRAZOLE) Take 1 tablet po QAM on an empty stomach #30[Tablet] x 1 Route:ORAL Entered and Authorized by: Terry AGUAYO Method used: Electronically to [facility]* (retail) [id number] [address] [place] [address] Note to Pharmacy: Route: ORAL; Indications: GASTRO-ESOPHAGEAL REFLUX DISEASE WITHOUT ESOPHAGITIS RxID: [id number] signed by Terry AGUAYO on 09/30/2019 at 11:07 AM Name Value Range Interpretation Code Description Data Ellie rce(s) Supporting Document(s) ID Date Data Source [id number] 09/10/2019 09:45:38 AM EDT [facility] Measurements & CalculationsHeight: 72 inches 182.88 cm Weight: 219 pounds 4 oz. 99.66 kg Body Mass Index (BMI): 29.84BMI Interpretation: OverweightBody Surface Area (BSA): 2.22Weight Management Education Done (Nutrition/Physical Activity)Vital SignsTemperature: 97.2F 36.22C tympanic Pulse Rate: 61 beats/minuteRespiratory Rate: 18 respirations/minuteBlood Pressure: 118/76 left arm sitting automaticO2 Saturation: 98% Vital Signs performed by: Camila Whatley LPN, September 10, 2019 9:45 AMInitial Intake Information From: patientRoom #: 1Infectious Disease / Travel ScreeningRecent travel for you or any close contacts? NoHave you had any close contact with anyone diagnosed with or under investigation for COVID-19 (coronavirus)? NoFever? NoRespiratory symptoms: cough, cold, congestion, shortness of breath, difficulty breathing? NoLoss of smell? NoLoss of taste? NoSmoking, Tobacco, Vaping or Smoke Exposure StatusSmoke Status: never smokerDo you vape? YesCessation advice given: YesWhat is in your device? nicotineFrequency: current every day vaperPassive Smoke Exposure: NoHealthcare HistorySince your last office visit...Have you been to an emergency room (ER) or urgent care clinic? Yes - ANX, chest painEmergency room (ER) or urgent care date reported today: 09/09/2019Have you seen another healthcare provider? NoHave you seen a dentist? NoIntake performed by: Camila Whatley LPN, September 10, 2019 9:48 AMRate Your HealthIn general, would you say your health is? Very GoodDepression Screening - PHQ-2Over the last two weeks, have you... Had little interest or pleasure in doing things? More than half the days Been feeling down, depressed, or hopeless? More than half the days PHQ-2 Score: 4Anxiety Screening - BRIGIDO-2Over the last two weeks, have you been... Feeling nervous, anxious, or on edge? More than half the days Unable to stop or control worrying? More than half the days BRIGIDO-2 Score: 4Food InsecurityWithin the past year...Did you worry whether your food would run out before you got money to buy more? NoWas there a time when the food you bought didn't last and you didn't have money to get more? NoGeneralized Anxiety Disorder 7-Item Screening (BRIGIDO-7)Answer Guide:0 = Not at all1 = Several days2 = Over half the days3 = Nearly every dayOver the last 2 weeks, how often have you been bothered by the following problems?Feeling nervous, anxious, or on edge: 2Not being able to stop or control worryinWorrying too much about different things: 2Trouble relaxinBeing so restless that it's hard to sit still: 2Becoming easily annoyed or irritable: 2Feeling afraid as if something awful might happen: 2Answer Guide:0 = Not difficult at all1 = Somewhat difficult2 = Very difficult3 = Extremely difficultHow difficult have these made it for you to do your work, take care of things at home, or get along with other people? 2GAD-7 Screening Results BRIGIDO-2 Score: 4GAD-7 Score: 14Functional Impairment: Very difficultRecommendation: Moderate anxietyPHQ-9 1. Over the last 2 weeks, patient reports the following frequency of symptoms: a. Little interest or pleasure in doing things -More than half the days b. Feeling down, depressed, or hopeless -More than half the days c. Trouble falling asleep, staying asleep, or sleeping too much -More than half the days d. Feeling tired or having little energy -More than half the days e. Poor appetite or overeating -More than half the days f. Feeling bad about yourself, feeling that you are a failure, or feeling that you have let yourself or your family down -More than half the days g. Trouble concentrating on things such as reading the newspaper or watching television - More than half the days h. Moving or speaking so slowly that other people could have noticed. Or being so fidgety or restless that you have been moving around a lot more than usual -More than half the days i. Thinking that you would be better off or that you want to hurt yourself in some way -Not at all2. If you checked off any problems, how difficult have these problems made it for you to do your work, take care of things at home, or get along with other people? -Very DifficultToday's PHQ-9 Results Score: 16 Severity: Moderately Severe Diagnosis Recommendation: Major Depression Functional Impairment: Very DifficultToday's Follow-Up Action Depression follow-up done. Follow-Up Action: Prescribed Antidepressant MedicationPRAPARE Sociodemographic Characteristics Race: Black or Ethnicity: Not or Preferred Language: EnglishFamily and Home Address: [address] [place] [address] Dr Tran [address] [place] [address] What is your housing situation today? I have housing Are you worried about losing your housing? NoMoney and Resources What is the highest level of school that you have finished? some college Employed? Yes Your current work situation? [employer] Insurance: Sliding Fee ScaleIn the past year, have you or any family members you live with been unable to get any of the following when it was really needed? Denies Insecurity: food, utilities, clothing, child care director, phone, legal services, otherWithin the past year did you worry whether your food would run out before you got money to buy more? NoWithin the past year was there a time when the food you bought didn't last and you didn't have money to get more? NoIn the past year, have you had trouble affording costs associated with health insurance (such as deductibles, co-payments, etc.)? NoScreening, Brief Intervention, & Ref erral to Treatment (SBIRT)Pre-Screening Questions How many times have you have 5 or more drinks in a day? 0How many times have you used an illegal drug or used a prescription medication for a non-medical reason? 0Performed by: Camila Whatley LPN, September 10, 2019 9:51 AMPatient History Medical History:UnremarkableSurgical History:Family History:Social/Personal History:Smoking History:Patient has never smoked. Chief Complaintannual examHistory of Present Illness (HPI)28 yo male presents for an annual physical. No PCP since childhood. Pt states he has been to [facility] ER 3 times since the 09/06/2019 for panic attacks. No reports available due to [facility] computer downtime. Pt states they did EKG, xray and blood work and everything was normal. Diagnosed with anxiety and panic attacks, they did not discharge him with any medications, but they did give him Ativan IV with relief while in the ER. Pt reports significant life stressors over the last 6 months, markedly worse in the last few weeks. Interested in counseling services. HPI performed by: Terry AGUAYO, September 10, 2019 10:08 AMTransitions of [facility] InboundProblem ReviewProblem List was reviewed and/or updated during this visit.Medication Rec onciliation & ReviewMedication List was reviewed and/or updated during this visit, including review of any [id number] medications, herbal therapies, and/or supplements.Allergy ReviewAllergy List was reviewed and/or updated during this visit. Patient has no known allergies.Adult Preventive CareLabs/Meds/Other Counseling-Nutrition and Physical Activity:BMI Interpretation: Overweight (09/10/2019) Counseling: Done (09/10/2019) Physical Activity: Done (09/10/2019)Review of Systems General: Denies loss of appetite, chills, dizziness, fatigue, fever, headache, feeling ill. Eyes: Denies blurring of vision, double vision. Ears/Nose/Throat: Denies earache, decreased hearing, nasal congestion, sore throat, tooth pain, swollen glands. Cardiovascular: Denies chest pain, palpitations, feeling faint, peripheral edema, elevated blood pressure. Respiratory: Denies cough, difficulty breathing, shortness of breath, wheezing. Gastrointestinal: Denies nausea, vomiting, diarrhea, pain or discomfo rt. Musculoskeletal: Denies joint pain, joint swelling, stiffness. Skin: Denies rash, suspicious lesions. Neurologic: Denies weakness, numbness/tingling, slurred speech, feeling faint. Psychiatric: Complains of see HPI, depression, anxiety, feeling stressed. Physical ExamGeneral Appearance: well nourished, well hydrated, no acute distressEyes, External: conjunctivae and lids normal, EOMIExternal Ears: normal, no lesions or deformitiesHearing: grossly intactOtoscopy: canals clear, tympanic membranes intact, no fluid, light reflex intact bilaterallyExternal Nose: normal, no lesions or deformitiesNasal: mucosa, septum, and turbinates normal, nares patentLips/Teeth/Gums: no gingival inflammation, no labial lesionsPharynx: tongue normal, posterior pharynx without erythema or exudate, no thrush/aphthous ulcerNeck: supple, no masses, trachea midline, full range of motion of neckThyroid: no nodules, masses, tenderness, or enlargementRespiratory, Auscultation: clear to auscultation bilaterally; no ral es, rhonchi, or wheezesRespiratory, Effort: no intercostal retractions or use of accessory musclesCardiovascular, Auscultation: S1, S2 audible; no murmur, rub, or gallop; RRRPeripheral Circulation: no clubbing, cyanosis, edema, or varicositiesAbdomen: soft, non-tender, no masses, bowel sounds normalGait & Station: normalSkin, Inspection: no rashes, lesions, or ulcerationsOrientation: oriented to time, place, and personMood & Affect: mildly anxious appearing, tearful at timesJudgment & Insight: intactCare Management Plan Transitions of CareInboundRate Your HealthIn general, would you say your health is? Very GoodAssessment & Plan Problems:Added: Encounter for general adult medical examination with abnormal findings (ICD-V70.0) (SVK58-T05.01) Assessment: Instructions: Recommend annual medical appointments. Recommend routine dental and vision care. Recommend influenza vaccines annually and tetanus boosters every 10 years. Release of information form(s) to obtain medical records from your prior providers(s) and vaccines has been signed in the office today.Adjustment disorder with mixed emotional features (ICD-309.28) (ICD10- F43.23) Assessment: Instructions: Referred for counseling services in house. Start Lexapro once daily in the morning. Given hydroxyzine 10mg, may take 1-2 tablets as needed every 6 hrs for panic. Ativan for evening use when home: no driving, no alcohol, no operating machinery while taking. Follow-up in 2 weeks for recheck.C/O - panic attack (ICD-300.01) (ZRE31-F24.0) Assessment: Instructions: As above.Nicotine dependence, cigarettes, uncomplicated (ICD10- F17.210) Assessment: Instructions: Smoking cessation counseling was recommended with patient today.Removed:Back Pain (ICD-724.5) (ICD10- M54.9)Patient Instructions/Care Plan: Encounter for general adult medical examination with abnormal findings: Recommend annual medical appointments. Recommend routine dental and vision care. Recommend influenza vaccines annually and tetanus boosters every 10 years. Release of information form(s) to obtain medical records from your prior providers(s) and vaccines has been signed in the office today.Adjustment disorder with mixed emotional features: Referred for counseling services in house. Start Lexapro once daily in the morning. Given hydroxyzine 10mg, may take 1-2 tablets as needed every 6 hrs for panic. Ativan for evening use when home: no driving, no alcohol, no operating machinery while taking. Follow-up in 2 weeks for recheck.C/O - panic attack: As above.Nicotine dependence- cigarettes- uncomplicated: Smoking cessation counseling was recommended with patient today. Plan developed in collaboration with patient and/or familyMedications:LORAZEPAM 1 MG ORAL TABLETHYDROXYZINE HCL 10 MG ORAL TABLETLEXAPRO 10 MG ORAL TABLETMedication Changes:New Prescription:LEXAPRO 10 MG ORAL TABLET-Take 1 tablet by mouth once daily Qty: 30[Tablet] Refills: 1 Method: ElectronicHYDROXYZINE HCL 10 MG ORAL TABLET-Take 1-2 tablets po q 6 hrs prn Qty: 30[Tablet] Refills: 1 Method: ElectronicLORAZEPAM 1 MG ORAL TABLET-Take 0.5-1 tablet po daily in the evening: MDD 1mg Qty: 7[Tablet] Refills: 0 Method: ElectronicAllergies:No Known Allergies (updated 09/10/2019) Orders:Mental Health Consult [CPT-53654] Preventive, New, (18-39) [CPT-10598] Follow-Up Return to clinic: in 2 weeks for follow upAdditional Follow-Up: mood recheckClinical Visit Summary Completed Name Value Range Interpretation Code Description Data Ellie rce(s) Supporting Document(s) Procedure Social History Code Duration Value Status Description Data Source(s ) Smoking 01/07/2020 12:00:00 AM EST Patient is a former smoker completed Patient is a former smoker RANGEL ([facility]) Vital Signs ID Date Data Source UNK Name Value Range Interpretation Code Description Data Source(s) Body weight 3596.8 [oz_av] 3596.8 [oz_av] ATHEN A ([facility]) Systolic blood pressure 145 mm[Hg] 145 mm[Hg] A [facility] ([facility]) Systolic blood pressure 127 mm[Hg] 127 mm[Hg] A [facility] ([facility]) Body mass index (BMI) [Ratio] 30.5 kg/m2 30.5 k g/m2 HILDA ([facility]) Body height 72 [in_i] 72 [in_i] HILDA ([facility]) Diastolic blood pressure 81 mm[Hg] 81 mm[Hg] HILDA ([facility]) Diastolic blood pressure 82 mm[Hg] 82 mm[Hg] HILDA ([facility]) Body weight 3596.8 [oz_av] 3596.8 [oz_av] ATHEN A ([facility]) Systolic blood pressure 145 mm[Hg] 145 mm[Hg] [facility] Systolic blood pressure 127 mm[Hg] 127 mm[Hg] A [facility] ([facility]) Body mass index (BMI) [Ratio] 30.5 kg/m2 30.5 k g/m2 HILDA ([facility]) Body height 72 [in_i] 72 [in_i] HILDA ([facility]) Diastolic blood pressure 81 mm[Hg] 81 mm[Hg] HILDA ([facility]) Diastolic blood pressure 82 mm[Hg] 82 mm[Hg] HILDA ([facility]) Body weight 3596.8 [oz_av] 3596.8 [oz_av] ATHEN A ([facility]) Systolic blood pressure 145 mm[Hg] 145 mm[Hg] A THENA ([facility]) Systolic blood pressure 127 mm[Hg] 127 mm[Hg] A THEN ([facility]) Body mass index (BMI) [Ratio] 30.5 kg/m2 30.5 k g/m2 HILDA ([facility]) Body height 72 [in_i] 72 [in_i] HILDA ([facility]) Diastolic blood pressure 81 mm[Hg] 81 mm[Hg] HILDA ([facility]) Diastolic blood pressure 82 mm[Hg] 82 mm[Hg] HILDA ([facility]) Diastolic blood pressure 82 mm[Hg] 82 mm[Hg] HILDA ([facility]) Body weight 3596.8 [oz_av] 3596.8 [oz_av] ATHEN A ([facility]) Systolic blood pressure 145 mm[Hg] 145 mm[Hg] A THENA ([facility]) Systolic blood pressure 127 mm[Hg] 127 mm[Hg] A THENA ([facility]) Body mass index (BMI) [Ratio] 30.5 kg/m2 30.5 k g/m2 HILDA ([facility]) Body height 72 [in_i] 72 [in_i] HILDA ([facility]) Diastolic blood pressure 81 mm[Hg] 81 mm[Hg] HILDA ([facility]) Diastolic blood pressure--supine 68 mm[Hg] 68 mm[Hg] MEDENT ([facility]) Ra Systolic blood pressure--supine 108 mm[Hg] 108 mm[Hg] MEDENT ([facility]) Ra Diastolic blood pressure--sitting 68 mm[Hg] 68 mm[Hg] MEDENT ([facility]) large cuff, Ra; 110/72 LA Systolic blood pressure--sitting 108 mm[Hg] 108 mm[Hg] MEDENT ([facility]) large cuff, Ra; 110/72 LA Respiratory rate 16 /min 16 /min MEDENT ( [facility]) Heart rate 52 /min 52 /min [facility] ([facility]) regular Body mass index (BMI) [Ratio] 30.1 kg/m2 30.1 k g/m2 MEDENT ([facility]) Body height 72 [in_i] 72 [in_i] [facility] ([facility]) 6'0" Body weight 222.00 [lb_av] 222.00 [lb_av] MEDEN T ([facility]) Body weight 3568 [oz_av] 3568 [oz_av] HILDA ([facility]) Systolic blood pressure 120 mm[Hg] 120 mm[Hg] A [facility] ([facility]) Body mass index (BMI) [Ratio] 30.2 kg/m2 30.2 k g/m2 HILDA ([facility]) Body height 72 [in_i] 72 [in_i] HILDA ([facility]) Diastolic blood pressure 81 mm[Hg] 81 mm[Hg] HILDA ([facility]) Body weight 3568 [oz_av] 3568 [oz_av] HILDA ([facility]) Systolic blood pressure 120 mm[Hg] 120 mm[Hg] A [facility] ([facility]) Body mass index (BMI) [Ratio] 30.2 kg/m2 30.2 k g/m2 H[facility]DA ([facility]) Body height 72 [in_i] 72 [in_i] HILDA ([facility]) Diastolic blood pressure 81 mm[Hg] 81 mm[Hg] HILDA ([facility]) Body weight 3568 [oz_av] 3568 [oz_av] HILDA ([facility]) Systolic blood pressure 120 mm[Hg] 120 mm[Hg] A [facility] ([facility]) Body mass index (BMI) [Ratio] 30.2 kg/m2 30.2 k g/m2 H[facility]DA ([facility]) Body height 72 [in_i] 72 [in_i] HILDA ([facility]) Diastolic blood pressure 81 mm[Hg] 81 mm[Hg] HILDA ([facility]) Body weight 3568 [oz_av] 3568 [oz_av] HILDA ([facility]) Systolic blood pressure 120 mm[Hg] 120 mm[Hg] A THEN ([facility]) Body mass index (BMI) [Ratio] 30.2 kg/m2 30.2 k g/m2 HILDA ([facility]) Body height 72 [in_i] 72 [in_i] HILDA ([facility]) Diastolic blood pressure 81 mm[Hg] 81 mm[Hg] HILDA ([facility]) Body weight 3568 [oz_av] 3568 [oz_av] HILDA ([facility]) Systolic blood pressure 120 mm[Hg] 120 mm[Hg] A THEN ([facility]) Body mass index (BMI) [Ratio] 30.2 kg/m2 30.2 k g/m2 H[facility]DA ([facility]) Body height 72 [in_i] 72 [in_i] HILDA ([facility]) Diastolic blood pressure 81 mm[Hg] 81 mm[Hg] HILDA ([facility]) Body weight 3568 [oz_av] 3568 [oz_av] HILDA ([facility]) Systolic blood pressure 120 mm[Hg] 120 mm[Hg] A THEN ([facility]) Body mass index (BMI) [Ratio] 30.2 kg/m2 30.2 k g/m2 HILDA ([facility]) Body height 72 [in_i] 72 [in_i] HILDA ([facility]) Diastolic blood pressure 81 mm[Hg] 81 mm[Hg] HILDA ([facility]) Body weight 3568 [oz_av] 3568 [oz_av] HILDA ([facility]) Systolic blood pressure 120 mm[Hg] 120 mm[Hg] A THEN ([facility]) Body mass index (BMI) [Ratio] 30.2 kg/m2 30.2 k g/m2 HILDA ([facility]) Body height 72 [in_i] 72 [in_i] HILDA ([facility]) Diastolic blood pressure 81 mm[Hg] 81 mm[Hg] HILDA ([facility]) Body weight 3568 [oz_av] 3568 [oz_av] HILDA ([facility]) Systolic blood pressure 120 mm[Hg] 120 mm[Hg] A LUISA ([facility]) Body mass index (BMI) [Ratio] 30.2 kg/m2 30.2 k g/m2 HILDA ([facility]) Body height 72 [in_i] 72 [in_i] HILDA ([facility]) Diastolic blood pressure 81 mm[Hg] 81 mm[Hg] HILDA ([facility]) Body weight 3568 [oz_av] 3568 [oz_av] HILDA ([facility]) Systolic blood pressure 120 mm[Hg] 120 mm[Hg] A LUISA ([facility]) Body mass index (BMI) [Ratio] 30.2 kg/m2 30.2 k g/m2 H[facility]DA ([facility]) Body height 72 [in_i] 72 [in_i] HILDA ([facility]) Diastolic blood pressure 81 mm[Hg] 81 mm[Hg] HILDA ([facility]) Body weight 3568 [oz_av] 3568 [oz_av] HILDA ([facility]) Systolic blood pressure 120 mm[Hg] 120 mm[Hg] A LUISA ([facility]) Body mass index (BMI) [Ratio] 30.2 kg/m2 30.2 k g/m2 HILDA ([facility]) Body height 72 [in_i] 72 [in_i] HILDA ([facility]) Diastolic blood pressure 81 mm[Hg] 81 mm[Hg] HILDA ([facility]) Body weight 3587.2 [oz_av] 3587.2 [oz_av] ATHEN A ([facility]) Systolic blood pressure 130 mm[Hg] 130 mm[Hg] A THENA ([facility]) Body mass index (BMI) [Ratio] 30.4 kg/m2 30.4 k g/m2 HILDA ([facility]) Body height 72 [in_i] 72 [in_i] HILDA ([facility]) Diastolic blood pressure 86 mm[Hg] 86 mm[Hg] H[facility]DA ([facility]) Body weight 3587.2 [oz_av] 3587.2 [oz_av] ATHEN A ([facility]) Systolic blood pressure 130 mm[Hg] 130 mm[Hg] A THENA ([facility]) Body mass index (BMI) [Ratio] 30.4 kg/m2 30.4 k g/m2 H[facility]DA ([facility]) Body height 72 [in_i] 72 [in_i] HILDA ([facility]) Diastolic blood pressure 86 mm[Hg] 86 mm[Hg] HILDA ([facility]) Body weight 3587.2 [oz_av] 3587.2 [oz_av] ATHEN A ([facility]) Systolic blood pressure 130 mm[Hg] 130 mm[Hg] A LUISA ([facility]) Body mass index (BMI) [Ratio] 30.4 kg/m2 30.4 k g/m2 H[facility]DA ([facility]) Body height 72 [in_i] 72 [in_i] HILDA ([facility]) Diastolic blood pressure 86 mm[Hg] 86 mm[Hg] HILDA ([facility]) Body weight 3587.2 [oz_av] 3587.2 [oz_av] ATHEN A ([facility]) Systolic blood pressure 130 mm[Hg] 130 mm[Hg] A THENA ([facility]) Body mass index (BMI) [Ratio] 30.4 kg/m2 30.4 k g/m2 H[facility]DA ([facility]) Body height 72 [in_i] 72 [in_i] HILDA ([facility]) Diastolic blood pressure 86 mm[Hg] 86 mm[Hg] HILDA ([facility]) Body weight 3587.2 [oz_av] 3587.2 [oz_av] ATHEN A ([facility]) Systolic blood pressure 130 mm[Hg] 130 mm[Hg] A THENA ([facility]) Body mass index (BMI) [Ratio] 30.4 kg/m2 30.4 k g/m2 HILDA ([facility]) Body height 72 [in_i] 72 [in_i] HILDA ([facility]) Diastolic blood pressure 86 mm[Hg] 86 mm[Hg] HILDA ([facility]) Body weight 3587.2 [oz_av] 3587.2 [oz_av] ATHEN A ([facility]) Systolic blood pressure 130 mm[Hg] 130 mm[Hg] A THENA ([facility]) Body mass index (BMI) [Ratio] 30.4 kg/m2 30.4 k g/m2 HILDA ([facility]) Body height 72 [in_i] 72 [in_i] HILDA ([facility]) Diastolic blood pressure 86 mm[Hg] 86 mm[Hg] HILDA ([facility]) Body weight 3587.2 [oz_av] 3587.2 [oz_av] ATHEN A ([facility]) Systolic blood pressure 130 mm[Hg] 130 mm[Hg] A LUISA ([facility]) Body mass index (BMI) [Ratio] 30.4 kg/m2 30.4 k g/m2 HILDA ([facility]) Body height 72 [in_i] 72 [in_i] HILDA ([facility]) Diastolic blood pressure 86 mm[Hg] 86 mm[Hg] HILDA ([facility]) Body weight 3587.2 [oz_av] 3587.2 [oz_av] ATHEN A ([facility]) Systolic blood pressure 130 mm[Hg] 130 mm[Hg] A THENA ([facility]) Body mass index (BMI) [Ratio] 30.4 kg/m2 30.4 k g/m2 HILDA ([facility]) Body height 72 [in_i] 72 [in_i] HILDA ([facility]) Diastolic blood pressure 86 mm[Hg] 86 mm[Hg] HILDA ([facility]) Body weight 3587.2 [oz_av] 3587.2 [oz_av] ATHEN A ([facility]) Systolic blood pressure 130 mm[Hg] 130 mm[Hg] A THENA ([facility]) Body mass index (BMI) [Ratio] 30.4 kg/m2 30.4 k g/m2 HILDA ([facility]) Body height 72 [in_i] 72 [in_i] HILDA ([facility]) Diastolic blood pressure 86 mm[Hg] 86 mm[Hg] HILDA ([facility]) Body weight 3587.2 [oz_av] 3587.2 [oz_av] ATHEN A ([facility]) Systolic blood pressure 130 mm[Hg] 130 mm[Hg] A THENA ([facility]) Body mass index (BMI) [Ratio] 30.4 kg/m2 30.4 k g/m2 HILDA ([facility]) Body height 72 [in_i] 72 [in_i] HILDA ([facility]) Diastolic blood pressure 86 mm[Hg] 86 mm[Hg] HILDA ([facility]) Body weight 3558 [oz_av] 3558 [oz_av] [facility] ([facility]) Systolic blood pressure 130 mm[Hg] 130 [facility]Hg] [facility] Body mass index (BMI) [Ratio] 30.2 kg/m2 30.2 k g/m2 H[facility]DA ([facility]) Body height 72 [in_i] 72 [in_i] HILDA ([facility]) Diastolic blood pressure 85 mm[Hg] 85 mm[Hg] HILDA ([facility]) Body weight 3558 [oz_av] 3558 [oz_av] HILDA ([facility]) Systolic blood pressure 130 mm[Hg] 130 mm[Hg] A THENA ([facility]) Body mass index (BMI) [Ratio] 30.2 kg/m2 30.2 k g/m2 HILDA ([facility]) Body height 72 [in_i] 72 [in_i] H[facility]DA ([facility]) Diastolic blood pressure 85 mm[Hg] 85 mm[Hg] HILDA ([facility]) Body weight 3558 [oz_av] 3558 [oz_av] [facility]ILDA ([facility]) Systolic blood pressure 130 mm[Hg] 130 mm[Hg] A [facility] ([facility]) Body mass index (BMI) [Ratio] 30.2 kg/m2 30.2 k g/m2 HILDA ([facility]) Body height 72 [in_i] 72 [in_i] H[facility]DA ([facility]) Diastolic blood pressure 85 mm[Hg] 85 mm[Hg] H[facility]DA ([facility]) Body weight 3558 [oz_av] 3558 [oz_av] HILDA ([facility]) Systolic blood pressure 130 mm[Hg] 130 mm[Hg] A [facility] ([facility]) Body mass index (BMI) [Ratio] 30.2 kg/m2 30.2 k g/m2 H[facility]DA ([facility]) Body height 72 [in_i] 72 [in_i] HILDA ([facility]) Diastolic blood pressure 85 mm[Hg] 85 mm[Hg] H[facility]DA ([facility]) Body weight 3558 [oz_av] 3558 [oz_av] HILDA ([facility]) Systolic blood pressure 130 mm[Hg] 130 mm[Hg] A [facility] ([facility]) Body mass index (BMI) [Ratio] 30.2 kg/m2 30.2 k g/m2 H[facility]DA ([facility]) Body height 72 [in_i] 72 [in_i] HILDA ([facility]) Diastolic blood pressure 85 mm[Hg] 85 mm[Hg] HILDA ([facility]) Body weight 3558 [oz_av] 3558 [oz_av] [facility] ([facility]) Systolic blood pressure 130 mm[Hg] 130 mm[facility]Hg] [facility] Body mass index (BMI) [Ratio] 30.2 kg/m2 30.2 k g/m2 H[facility]DA ([facility]) Body height 72 [in_i] 72 [in_i] [facility]DA ([facility]) Diastolic blood pressure 85 mm[Hg] 85 mm[Hg] H[facility]DA ([facility]) Body weight 3558 [oz_av] 3558 [oz_av] [facility]ILDA ([facility]) Systolic blood pressure 130 mm[Hg] 130 mm[Hg] A [facility] ([facility]) Body mass index (BMI) [Ratio] 30.2 kg/m2 30.2 k g/m2 HILDA ([facility]) Body height 72 [in_i] 72 [in_i] H[facility]DA ([facility]) Diastolic blood pressure 85 mm[Hg] 85 mm[Hg] HILDA ([facility]) Diastolic blood pressure 85 mm[Hg] 85 mm[Hg] H[facility]DA ([facility]) Body weight 3558 [oz_av] 3558 [oz_av] [facility]ILDA ([facility]) Systolic blood pressure 130 mm[Hg] 130 mm[Hg] A THEN ([facility]) Body mass index (BMI) [Ratio] 30.2 kg/m2 30.2 k g/m2 HILDA ([facility]) Body height 72 [in_i] 72 [in_i] HILDA ([facility]) Diastolic blood pressure 85 mm[Hg] 85 mm[Hg] H[facility]DA ([facility]) Body weight 3558 [oz_av] 3558 [oz_av] [facility]ILDA ([facility]) Systolic blood pressure 130 mm[Hg] 130 mm[Hg] A [facility] ([facility]) Body mass index (BMI) [Ratio] 30.2 kg/m2 30.2 k g/m2 [facility] ([facility]) Body height 72 [in_i] 72 [in_i] [facility] ([facility]) Diastolic blood pressure 85 mm[Hg] 85 mm[Hg] [facility] ([facility]) Body weight 3558 [oz_av] 3558 [oz_av] [facility]DA ([facility]) Systolic blood pressure 130 mm[Hg] 130 mm[Hg] A THEN ([facility]) Body mass index (BMI) [Ratio] 30.2 kg/m2 30.2 k g/m2 [facility] ([facility]) Body height 72 [in_i] 72 [in_i] HILDA ([facility]) Diastolic blood pressure 85 mm[Hg] 85 mm[Hg] H[facility]DA ([facility]) Body weight 3558 [oz_av] 3558 [oz_av] [facility]DA ([facility]) Systolic blood pressure 130 mm[Hg] 130 mm[Hg] A [facility] ([facility]) Body mass index (BMI) [Ratio] 30.2 kg/m2 30.2 k g/m2 H[facility]DA ([facility]) Body height 72 [in_i] 72 [in_i] H[facility]DA ([facility]) Diastolic blood pressure 85 mm[Hg] 85 mm[Hg] H[facility]DA ([facility]) Body weight 3558 [oz_av] 3558 [oz_av] [facility]ILDA ([facility]) Systolic blood pressure 130 mm[Hg] 130 mm[Hg] A [facility] ([facility]) Body mass index (BMI) [Ratio] 30.2 kg/m2 30.2 k g/m2 [facility] ([facility]) Body height 72 [in_i] 72 [in_i] [facility]DA ([facility]) Body weight 3558 [oz_av] 3558 [oz_av] [facility]DA ([facility]) Systolic blood pressure 130 mm[Hg] 130 mm[Hg] A [facility] ([facility]) Body mass index (BMI) [Ratio] 30.2 kg/m2 30.2 k g/m2 H[facility] ([facility]) Body height 72 [in_i] 72 [in_i] [facility]DA ([facility]) Diastolic blood pressure 85 mm[Hg] 85 mm[Hg] [facility] ([facility]) Body weight 3558 [oz_av] 3558 [oz_av] [facility] ([facility]) Systolic blood pressure 130 mm[Hg] 130 mm[facility]Hg] [facility] Body mass index (BMI) [Ratio] 30.2 kg/m2 30.2 k g/m2 H[facility]DA ([facility]) Body height 72 [in_i] 72 [in_i] [facility]DA ([facility]) Diastolic blood pressure 85 mm[Hg] 85 mm[Hg] [facility]DA ([facility]) Body weight 3558 [oz_av] 3558 [oz_av] [facility] ([facility]) Systolic blood pressure 130 mm[Hg] 130 mm[Hg] A [facility] ([facility]) Body mass index (BMI) [Ratio] 30.2 kg/m2 30.2 k g/m2 [facility] ([facility]) Body height 72 [in_i] 72 [in_i] [facility] ([facility]) Diastolic blood pressure 85 mm[Hg] 85 mm[Hg] [facility] ([facility]) Body weight 3539.2 [oz_av] 3539.2 [oz_av] ATHEN A ([facility]) Systolic blood pressure 148 mm[Hg] 148 mm[Hg] A THENA ([facility]) Systolic blood pressure 135 mm[Hg] 135 mm[Hg] A THENA ([facility]) Body height 72 [in_i] 72 [in_i] [facility]DA ([facility]) Diastolic blood pressure 91 mm[Hg] 91 mm[Hg] [facility] ([facility]) Diastolic blood pressure 91 mm[Hg] 91 mm[Hg] [facility] ([facility]) Body weight 3539.2 [oz_av] 3539.2 [oz_av] ATHEN A ([facility]) Systolic blood pressure 148 mm[Hg] 148 mm[Hg] A THENA ([facility]) Systolic blood pressure 135 mm[Hg] 135 mm[Hg] A [facility]NA ([facility]) Body height 72 [in_i] 72 [in_i] [facility]DA ([facility]) Diastolic blood pressure 91 mm[Hg] 91 mm[Hg] [facility] ([facility]) Diastolic blood pressure 91 mm[Hg] 91 mm[Hg] [facility] ([facility]) Body weight 3539.2 [oz_av] 3539.2 [oz_av] ATHEN A ([facility]) Systolic blood pressure 148 mm[Hg] 148 mm[Hg] A THENA ([facility]) Systolic blood pressure 135 mm[Hg] 135 mm[Hg] A THENA ([facility]) Body height 72 [in_i] 72 [in_i] H[facility]DA ([facility]) Diastolic blood pressure 91 mm[Hg] 91 mm[Hg] [facility] ([facility]) Diastolic blood pressure 91 mm[Hg] 91 mm[Hg] [facility] ([facility]) Body weight 3539.2 [oz_av] 3539.2 [oz_av] ATHEN A ([facility]) Systolic blood pressure 148 mm[Hg] 148 mm[Hg] A THENA ([facility]) Systolic blood pressure 135 mm[Hg] 135 mm[Hg] A THENA ([facility]) Body height 72 [in_i] 72 [in_i] [facility] ([facility]) Diastolic blood pressure 91 mm[Hg] 91 mm[Hg] [facility] ([facility]) Diastolic blood pressure 91 mm[Hg] 91 mm[Hg] [facility] ([facility]) Body weight 3539.2 [oz_av] 3539.2 [oz_av] ATHEN A ([facility]) Systolic blood pressure 148 mm[Hg] 148 mm[Hg] A THENA ([facility]) Systolic blood pressure 135 mm[Hg] 135 mm[Hg] A THENA ([facility]) Body height 72 [in_i] 72 [in_i] [facility]DA ([facility]) Diastolic blood pressure 91 mm[Hg] 91 mm[Hg] H[facility]DA ([facility]) Diastolic blood pressure 91 mm[Hg] 91 mm[Hg] [facility]DA ([facility]) Body weight 3539.2 [oz_av] 3539.2 [oz_av] ATHEN A ([facility]) Systolic blood pressure 148 mm[Hg] 148 mm[Hg] A THENA ([facility]) Systolic blood pressure 135 mm[Hg] 135 mm[Hg] A THENA ([facility]) Body height 72 [in_i] 72 [in_i] H[facility]DA ([facility]) Diastolic blood pressure 91 mm[Hg] 91 mm[Hg] H[facility]DA ([facility]) Diastolic blood pressure 91 mm[Hg] 91 mm[Hg] [facility] ([facility]) Body weight 3539.2 [oz_av] 3539.2 [oz_av] ATHEN A ([facility]) Systolic blood pressure 148 mm[Hg] 148 mm[Hg] A THENA ([facility]) Systolic blood pressure 135 mm[Hg] 135 mm[Hg] A THENA ([facility]) Body height 72 [in_i] 72 [in_i] H[facility]DA ([facility]) Diastolic blood pressure 91 mm[Hg] 91 mm[Hg] H[facility]DA ([facility]) Diastolic blood pressure 91 mm[Hg] 91 mm[Hg] [facility] ([facility]) Body weight 3539.2 [oz_av] 3539.2 [oz_av] ATHEN A ([facility]) Systolic blood pressure 148 mm[Hg] 148 mm[Hg] A THENA ([facility]) Systolic blood pressure 135 mm[Hg] 135 [facility] Body height 72 [in_i] 72 [in_i] HILDA ([facility]) Diastolic blood pressure 91 mm[Hg] 91 mm[Hg] H[facility]DA ([facility]) Diastolic blood pressure 91 mm[Hg] 91 mm[Hg] [facility] ([facility]) Body weight 3539.2 [oz_av] 3539.2 [oz_av] ATHEN A ([facility]) Systolic blood pressure 148 mm[Hg] 148 mm[Hg] A THENA ([facility]) Systolic blood pressure 135 mm[Hg] 135 mm[Hg] A THENA ([facility]) Body height 72 [in_i] 72 [in_i] H[facility]DA ([facility]) Diastolic blood pressure 91 mm[Hg] 91 mm[Hg] [facility] ([facility]) Diastolic blood pressure 91 mm[Hg] 91 mm[Hg] [facility] ([facility]) Body weight 3539.2 [oz_av] 3539.2 [oz_av] ATHEN A ([facility]) Systolic blood pressure 148 mm[Hg] 148 mm[Hg] A THENA ([facility]) Systolic blood pressure 135 mm[Hg] 135 mm[Hg] A THENA ([facility]) Body height 72 [in_i] 72 [in_i] HILDA ([facility]) Diastolic blood pressure 91 mm[Hg] 91 mm[Hg] H[facility]DA ([facility]) Diastolic blood pressure 91 mm[Hg] 91 mm[Hg] [facility]DA ([facility]) Body weight 3539.2 [oz_av] 3539.2 [oz_av] ATHEN A ([facility]) Systolic blood pressure 148 mm[Hg] 148 mm[Hg] A THENA ([facility]) Systolic blood pressure 135 mm[Hg] 135 mm[Hg] A THENA ([facility]) Body height 72 [in_i] 72 [in_i] HILDA ([facility]) Diastolic blood pressure 91 mm[Hg] 91 mm[Hg] H[facility]DA ([facility]) Diastolic blood pressure 91 mm[Hg] 91 mm[Hg] HLIDA ([facility]) Body weight 3539.2 [oz_av] 3539.2 [oz_av] ATHEN A ([facility]) Systolic blood pressure 148 mm[Hg] 148 mm[Hg] A THENA ([facility]) Systolic blood pressure 135 mm[Hg] 135 mm[Hg] A THENA ([facility]) Body height 72 [in_i] 72 [in_i] HILDA ([facility]) Diastolic blood pressure 91 mm[Hg] 91 mm[Hg] [facility]DA ([facility]) Diastolic blood pressure 91 mm[Hg] 91 mm[Hg] [facility] ([facility]) Body weight 3539.2 [oz_av] 3539.2 [oz_av] ATHEN A ([facility]) Systolic blood pressure 148 mm[Hg] 148 mm[Hg] A THENA ([facility]) Systolic blood pressure 135 mm[Hg] 135 mm[Hg] A THENA ([facility]) Body height 72 [in_i] 72 [in_i] HILDA ([facility]) Diastolic blood pressure 91 mm[Hg] 91 mm[Hg] [facility]DA ([facility]) Diastolic blood pressure 91 mm[Hg] 91 mm[Hg] [facility] ([facility]) Body weight 3539.2 [oz_av] 3539.2 [oz_av] ATHEN A ([facility]) Systolic blood pressure 148 mm[Hg] 148 mm[Hg] A THENA ([facility]) Systolic blood pressure 135 mm[Hg] 135 mm[Hg] A THENA ([facility]) Body height 72 [in_i] 72 [in_i] [facility]DA ([facility]) Diastolic blood pressure 91 mm[Hg] 91 mm[Hg] [facility] ([facility]) Diastolic blood pressure 91 mm[Hg] 91 mm[Hg] [facility] ([facility]) Body weight 3539.2 [oz_av] 3539.2 [oz_av] ATHEN A ([facility]) Systolic blood pressure 148 mm[Hg] 148 mm[Hg] A THENA ([facility]) Systolic blood pressure 135 mm[Hg] 135 [facility]Hg] [facility] Body height 72 [in_i] 72 [in_i] HILDA ([facility]) Diastolic blood pressure 91 mm[Hg] 91 mm[Hg] H[facility]DA ([facility]) Diastolic blood pressure 91 mm[Hg] 91 mm[Hg] [facility] ([facility]) Body weight 3539.2 [oz_av] 3539.2 [oz_av] ATHEN A ([facility]) Systolic blood pressure 148 mm[Hg] 148 mm[Hg] A THENA ([facility]) Systolic blood pressure 135 mm[Hg] 135 mm[Hg] A THENA ([facility]) Body height 72 [in_i] 72 [in_i] HILDA ([facility]) Diastolic blood pressure 91 mm[Hg] 91 mm[Hg] H[facility]DA ([facility]) Diastolic blood pressure 91 mm[Hg] 91 mm[Hg] [facility] ([facility]) Body weight 3539.2 [oz_av] 3539.2 [oz_av] ATHEN A ([facility]) Systolic blood pressure 148 mm[Hg] 148 mm[Hg] A THENA ([facility]) Systolic blood pressure 135 mm[Hg] 135 mm[Hg] A THENA ([facility]) Body height 72 [in_i] 72 [in_i] H[facility]DA ([facility]) Diastolic blood pressure 91 mm[Hg] 91 mm[Hg] [facility]DA ([facility]) Diastolic blood pressure 91 mm[Hg] 91 mm[Hg] [facility] ([facility]) Body weight 3542.4 [oz_av] 3542.4 [oz_av] ATHEN A ([facility]) Systolic blood pressure 122 mm[Hg] 122 [facility]Hg] [facility] Body height 72 [in_i] 72 [in_i] HILDA ([facility]) Diastolic blood pressure 74 mm[Hg] 74 mm[Hg] [facility] ([facility]) Body weight 3542.4 [oz_av] 3542.4 [oz_av] ATHEN A ([facility]) Systolic blood pressure 122 mm[Hg] 122 mm[Hg] [facility] Body height 72 [in_i] 72 [in_i] H[facility]DA ([facility]) Diastolic blood pressure 74 mm[Hg] 74 mm[Hg] [facility] ([facility]) Body weight 3542.4 [oz_av] 3542.4 [oz_av] ATHEN A ([facility]) Systolic blood pressure 122 mm[Hg] 122 mm[Hg] A [facility] ([facility]) Body height 72 [in_i] 72 [in_i] HILDA ([facility]) Diastolic blood pressure 74 mm[Hg] 74 mm[Hg] [facility]DA ([facility]) Body weight 3542.4 [oz_av] 3542.4 [oz_av] ATHEN A ([facility]) Systolic blood pressure 122 mm[Hg] 122 mm[Hg] [facility] Body height 72 [in_i] 72 [in_i] H[facility]DA ([facility]) Diastolic blood pressure 74 mm[Hg] 74 mm[Hg] [facility] ([facility]) Body weight 3542.4 [oz_av] 3542.4 [oz_av] ATHEN A ([facility]) Systolic blood pressure 122 mm[Hg] 122 mm[Hg] [facility] Body height 72 [in_i] 72 [in_i] [facility]DA ([facility]) Diastolic blood pressure 74 mm[Hg] 74 mm[Hg] [facility] ([facility]) Body weight 3542.4 [oz_av] 3542.4 [oz_av] ATHEN A ([facility]) Systolic blood pressure 122 mm[Hg] 122 mm[Hg] [facility] Body height 72 [in_i] 72 [in_i] H[facility]DA ([facility]) Diastolic blood pressure 74 mm[Hg] 74 mm[Hg] [facility] ([facility]) Body weight 3542.4 [oz_av] 3542.4 [oz_av] ATHEN A ([facility]) Systolic blood pressure 122 mm[Hg] 122 mm[Hg] A THENA ([facility]) Body height 72 [in_i] 72 [in_i] [facility]DA ([facility]) Diastolic blood pressure 74 mm[Hg] 74 mm[Hg] [facility] ([facility]) Body weight 3542.4 [oz_av] 3542.4 [oz_av] ATHEN A ([facility]) Systolic blood pressure 122 mm[Hg] 122 mm[Hg] [facility] Body height 72 [in_i] 72 [in_i] H[facility]DA ([facility]) Diastolic blood pressure 74 mm[Hg] 74 mm[Hg] [facility] ([facility]) Body weight 3542.4 [oz_av] 3542.4 [oz_av] ATHEN A ([facility]) Systolic blood pressure 122 mm[Hg] 122 mm[Hg] [facility] Body height 72 [in_i] 72 [in_i] H[facility]DA ([facility]) Diastolic blood pressure 74 mm[Hg] 74 mm[Hg] [facility] ([facility]) Body weight 3542.4 [oz_av] 3542.4 [oz_av] ATHEN A ([facility]) Systolic blood pressure 122 mm[Hg] 122 mm[Hg] [facility] Body height 72 [in_i] 72 [in_i] [facility]DA ([facility]) Diastolic blood pressure 74 mm[Hg] 74 mm[Hg] [facility] ([facility]) Body weight 3542.4 [oz_av] 3542.4 [oz_av] ATHEN A ([facility]) Systolic blood pressure 122 mm[Hg] 122 mm[Hg] [facility] Body height 72 [in_i] 72 [in_i] HILDA ([facility]) Diastolic blood pressure 74 mm[Hg] 74 mm[Hg] [facility] ([facility]) Body weight 3542.4 [oz_av] 3542.4 [oz_av] ATHEN A ([facility]) Systolic blood pressure 122 mm[Hg] 122 mm[Hg] [facility] Body height 72 [in_i] 72 [in_i] HILDA ([facility]) Diastolic blood pressure 74 mm[Hg] 74 mm[Hg] [facility]DA ([facility]) Body weight 3542.4 [oz_av] 3542.4 [oz_av] ATHEN A ([facility]) Systolic blood pressure 122 mm[Hg] 122 mm[Hg] A [facility] ([facility]) Body height 72 [in_i] 72 [in_i] HILDA ([facility]) Diastolic blood pressure 74 mm[Hg] 74 mm[Hg] [facility]DA ([facility]) Diastolic blood pressure 74 mm[Hg] 74 mm[Hg] [facility] ([facility]) Body weight 3542.4 [oz_av] 3542.4 [oz_av] ATHEN A ([facility]) Systolic blood pressure 122 mm[Hg] 122 mm[Hg] [facility] ([facility]) Body height 72 [in_i] 72 [in_i] HILDA ([facility]) Diastolic blood pressure 74 mm[Hg] 74 mm[Hg] [facility] ([facility]) Body weight 3542.4 [oz_av] 3542.4 [oz_av] ATHEN A ([facility]) Systolic blood pressure 122 mm[Hg] 122 mm[Hg] [facility] Body height 72 [in_i] 72 [in_i] H[facility]DA ([facility]) Diastolic blood pressure 74 mm[Hg] 74 mm[Hg] [facility] ([facility]) Body weight 3542.4 [oz_av] 3542.4 [oz_av] ATHEN A ([facility]) Systolic blood pressure 122 mm[Hg] 122 mm[Hg] [facility] Body height 72 [in_i] 72 [in_i] HILDA ([facility]) Diastolic blood pressure 74 mm[Hg] 74 mm[Hg] [facility] ([facility]) Body weight 3542.4 [oz_av] 3542.4 [oz_av] ATHEN A ([facility]) Systolic blood pressure 122 mm[Hg] 122 mm[Hg] A THENA ([facility]) Body height 72 [in_i] 72 [in_i] [facility]DA ([facility]) Body weight 3508 [oz_av] 3508 [oz_av] [facility] ([facility]) Systolic blood pressure 118 mm[Hg] 118 mm[Hg] [facility] Body height 72 [in_i] 72 [in_i] [facility] ([facility]) Diastolic blood pressure 76 mm[Hg] 76 mm[Hg] [facility] ([facility]) Body weight 3508 [oz_av] 3508 [oz_av] [facility] ([facility]) Systolic blood pressure 118 mm[Hg] 118 mm[Hg] A THENA ([facility]) Body height 72 [in_i] 72 [in_i] [facility] ([facility]) Diastolic blood pressure 76 mm[Hg] 76 mm[Hg] [facility] ([facility]) Body weight 3508 [oz_av] 3508 [oz_av] [facility] ([facility]) Systolic blood pressure 118 mm[Hg] 118 mm[Hg] A THENA ([facility]) Body height 72 [in_i] 72 [in_i] [facility] ([facility]) Diastolic blood pressure 76 mm[Hg] 76 mm[Hg] [facility] ([facility]) Body weight 3508 [oz_av] 3508 [oz_av] [facility] ([facility]) Systolic blood pressure 118 mm[Hg] 118 mm[Hg] [facility] Body height 72 [in_i] 72 [in_i] [facility] ([facility]) Diastolic blood pressure 76 mm[Hg] 76 mm[Hg] [facility] ([facility]) Body weight 3508 [oz_av] 3508 [oz_av] [facility] ([facility]) Systolic blood pressure 118 mm[Hg] 118 mm[Hg] [facility] Body height 72 [in_i] 72 [in_i] [facility] ([facility]) Diastolic blood pressure 76 mm[Hg] 76 mm[Hg] [facility] ([facility]) Body weight 3508 [oz_av] 3508 [oz_av] [facility] ([facility]) Systolic blood pressure 118 mm[Hg] 118 mm[Hg] [facility] Body height 72 [in_i] 72 [in_i] [facility] ([facility]) Diastolic blood pressure 76 mm[Hg] 76 mm[Hg] [facility] ([facility]) Body weight 3508 [oz_av] 3508 [oz_av] [facility] ([facility]) Systolic blood pressure 118 mm[Hg] 118 mm[Hg] A THENA ([facility]) Body height 72 [in_i] 72 [in_i] [facility] ([facility]) Diastolic blood pressure 76 mm[Hg] 76 mm[Hg] [facility] ([facility]) Body weight 3508 [oz_av] 3508 [oz_av] [facility] ([facility]) Systolic blood pressure 118 mm[Hg] 118 mm[Hg] A THENA ([facility]) Body height 72 [in_i] 72 [in_i] [facility] ([facility]) Diastolic blood pressure 76 mm[Hg] 76 mm[Hg] [facility] ([facility]) Body weight 3508 [oz_av] 3508 [oz_av] [facility] ([facility]) Systolic blood pressure 118 mm[Hg] 118 mm[Hg] A THENA ([facility]) Body height 72 [in_i] 72 [in_i] [facility] ([facility]) Diastolic blood pressure 76 mm[Hg] 76 mm[Hg] [facility] ([facility]) Body weight 3508 [oz_av] 3508 [oz_av] [facility] ([facility]) Systolic blood pressure 118 mm[Hg] 118 mm[Hg] [facility] Body height 72 [in_i] 72 [in_i] [facility] ([facility]) Diastolic blood pressure 76 mm[Hg] 76 mm[Hg] [facility] ([facility]) Body weight 3508 [oz_av] 3508 [oz_av] [facility] ([facility]) Systolic blood pressure 118 mm[Hg] 118 mm[Hg] A THENA ([facility]) Body height 72 [in_i] 72 [in_i] [facility] ([facility]) Diastolic blood pressure 76 mm[Hg] 76 mm[Hg] [facility] ([facility]) Body weight 3508 [oz_av] 3508 [oz_av] [facility] ([facility]) Systolic blood pressure 118 mm[Hg] 118 mm[Hg] A [facility] ([facility]) Body height 72 [in_i] 72 [in_i] HILDA ([facility]) Diastolic blood pressure 76 mm[Hg] 76 mm[Hg] [facility] ([facility]) Body weight 3508 [oz_av] 3508 [oz_av] [facility] ([facility]) Systolic blood pressure 118 mm[Hg] 118 mm[Hg] [facility] Body height 72 [in_i] 72 [in_i] [facility] ([facility]) Diastolic blood pressure 76 mm[Hg] 76 mm[Hg] [facility] ([facility]) Body weight 3508 [oz_av] 3508 [oz_av] [facility] ([facility]) Systolic blood pressure 118 mm[Hg] 118 mm[Hg] [facility] Body height 72 [in_i] 72 [in_i] [facility] ([facility]) Diastolic blood pressure 76 mm[Hg] 76 mm[Hg] [facility] ([facility]) Body weight 3508 [oz_av] 3508 [oz_av] [facility] ([facility]) Systolic blood pressure 118 mm[Hg] 118 mm[Hg] A THENA ([facility]) Body height 72 [in_i] 72 [in_i] [facility] ([facility]) Diastolic blood pressure 76 mm[Hg] 76 mm[Hg] [facility] ([facility]) Body weight 3508 [oz_av] 3508 [oz_av] [facility] ([facility]) Systolic blood pressure 118 mm[Hg] 118 mm[Hg] A [facility] ([facility]) Body height 72 [in_i] 72 [in_i] [facility]DA ([facility]) Diastolic blood pressure 76 mm[Hg] 76 mm[Hg] I[facility]DA ([facility]) Body weight 3508 [oz_av] 3508 [oz_av] [facility] ([facility]) Systolic blood pressure 118 mm[Hg] 118 mm[Hg] [facility] Body height 72 [in_i] 72 [in_i] [facility] ([facility]) Diastolic blood pressure 76 mm[Hg] 76 mm[Hg] [facility] ([facility]) Patient Treatment Plan of Care Planned Activity Planned Date Details Description Data Source (s) Omeprazole 20 MG Delayed Release Oral Tablet 09/24/2019 12:00:00 AM EDT [facility]) Omeprazole 20 MG Delayed Release Oral Tablet 09/24/2019 12:00:00 AM EDT [facility] ([facility]) Lorazepam 1 MG Oral Tablet 09/10/2019 12:00:00 AM EDT [facility] ([facility]) Escitalopram 10 MG Oral Tablet [Lexapro] 09/10/2019 12:00:00 AM EDT [facility] ([facility]) Hydroxyzine Hydrochloride 10 MG Oral Tablet 09/10/2019 12:00:00 AM EDT [facility] ([facility]) Lorazepam 1 MG Oral Tablet 09/10/2019 12:00:00 AM EDT [facility] ([facility]) Escitalopram 10 MG Oral Tablet [Lexapro] 09[facility]10[facility] 10 MG Oral Tablet 09/10[facility]2019 [facility] Trazodone Hydrochloride 50 MG Oral Tablet [facility] ([facility]) Hydroxyzine Hydrochloride 10 MG Oral Tablet [facility] ([facility]) Escitalopram 10 MG Oral Tablet [facility] ([facility]) Trazodone Hydrochloride 50 MG Oral Tablet [facility] ([facility]) Hydroxyzine Hydrochloride 10 MG Oral Tablet [facility] ([facility]) Escitalopram 10 MG Oral Tablet [facility] ([facility] Trazodone Hydrochloride 50 MG Oral Tablet [facility] ([facility]) Hydroxyzine Hydrochloride 10 MG Oral Tablet [facility] ([facility]) Escitalopram 10 MG Oral Tablet [facility] ([facility]) Trazodone Hydrochloride 50 MG Oral Tablet [facility] ([facility]) Hydroxyzine Hydrochloride 10 MG Oral Tablet [facility] ([facility] Escitalopram 10 MG Oral Tablet [facility] ([facility]) Hydroxyzine Hydrochloride 10 MG Oral Tablet [facility] ([facility] Escitalopram 10 MG Oral Tablet [facility] ([facility]) Hydroxyzine Hydrochloride 10 MG Oral Tablet [facility] ([facility]) Escitalopram 10 MG Oral Tablet [facility] ([facility]) Hydroxyzine Hydrochloride 10 MG Oral Tablet [facility] ([facility] Escitalopram 10 MG Oral Tablet [facility] ([facility]) Hydroxyzine Hydrochloride 10 MG Oral Tablet [facility] ([facility] Escitalopram 10 MG Oral Tablet [facility] ([facility]) Hydroxyzine Hydrochloride 10 MG Oral Tablet [facility] ([facility]) Escitalopram 10 MG Oral Tablet [facility] ([facility]) Hydroxyzine Hydrochloride 10 MG Oral Tablet [facility] ([facility]) Escitalopram 10 MG Oral Tablet [facility] ([facility])
--- OUTSIDE RECORDS SUMMARY | 2020-03-27 14:11 | CCD ---
Author Author [facility] Organization [facility] Address Unknown Phone Unavailable Care Team Providers Care Certified Nuclear Medicine Technologist Name Role Phone QUIROGA, ISRAEL TERRY RPA-C [...] ISRAEL TERRY RPA-C Unavailable Unavailable PupilloMerlene Unavailable [phone] Ludmila SHELLEY MD Unavailable Unavailable Ludmila SHELLEY [...] Unavailable Ludmila SHELLEY MD Unavailable Unavailable Ludmila SHELELY MD Unavailable Unavailable Ludmila SHELLEY MD Unavailable [...] Unavailable Unavailable LOVEShilpa Gibbons MD Unavailable Unavailable LOVE, Shilpa CULVER MD [...] QUIROGA, ISRAEL TERRY RPA-C Unavailable Unavailable QUIROGA, ISAREL TERRY RPA-C Unavailable Unavailable QUIROGA, ISRAEL TERRY [...] is protected by Article 27-F of the [facility] Public Health law. If you continue you may have access to information: Regarding HIV / AIDS; Provided by facilities licensed or operated by the [facility] Office of Mental Health; or Provided by the [facility] Office for People With Developmental Disabilities. If such information is present, then the following [facility] mandated warning applies: This information has been [...] law may result in a fine or half-way sentence or both. A general authorization for the release of medical or other information is NOT sufficient authorization for further disc losure. Allergies and Adverse Reactions Type Description Substance Reaction Status Data Source(s ) Allergy to substance Allergy to substance Allergy to substance [facility] ([facility]) Allergy to substance Allergy to substance Allergy to substance [facility] ([facility]) Encounters Encounter Providers Location Date Indications Data Source(s ) Merlene Sadler [facility]: [address], [place] [address], Ph. Attender: Merlene Sadler [facility] Medical 03/05/2020 12:00:00 AM EST [facility] ([facility]) Merlene Sadler, [employer]: [address], [place] [address], Ph. Attender: Merlene Sadler [facility] Medical 02/20/2020 12:00:00 AM EST [facility] ([facility]) Merlene Sadler, [employer]: [address], [place] [address], Ph. Attender: Merlene Sadler [facility] Medical 02/20/2020 12:00:00 AM EST [facility] ([facility]) Terry Quiroga RPA-C: [address], [place] [address], Ph. Attender: TERRY QUIROGA RPA-C [facility] Medical 02/02/2020 12:00:00 AM EST [facility] ([facility]) Merlene Sadler, [employer]: [address], [place] [address], Ph. Attender: Merlene Sadler [facility] Medical 02/02/2020 12:00:00 AM EST [facility] ([facility]) Terry Quiroga RPA-C: [address], [place] [address], Ph. Attender: TERRY QUIROGA RPA-C [facility] Medical 02/02/2020 12:00:00 AM EST [facility] ([facility]) Merlene Sadler, [employer]: [address], [place] [address], Ph. Attender: Merlene Sadler [facility] Medical 02/02/2020 12:00:00 AM EST [facility] ([facility]) Terry Quiroga RPA-C: [address], [place] [address], Ph. Attender: TERRY QUIROGA RPA-C [facility] Medical 02/02/2020 12:00:00 AM EST [facility] ([facility]) Merlene Davisjeffrey, [employer]: [address], [place] [address], Ph. Attender: Merlene Ryanjeffrey [facility] Medical 02/02/2020 12:00:00 AM EST [facility] ([facility]) Terry Quiroga RPA-C: [address], [place] [address], Ph. Attender: TERRY MONCADA [facility] Medical 02/02/2020 12:00:00 AM EST [facility] ([facility]) Merlene Davisjeffrey, [employer]: [address], [place] [address], Ph. Attender: Merlene Davisjeffrey [facility] Medical 02/02/2020 12:00:00 AM EST [facility] ([facility]) Merlene Ryanjeffrey, [employer]: [address], [place] [address], Ph. Attender: Merlene Sadler [facility] Medical 01/28/2020 12:00:00 AM EST [facility] ([facility]) Merlene Sadler, [employer]: [address], [place] [address], Ph. Attender: Merlene Sadler [facility] Medical 01/28/2020 12:00:00 AM EST [facility] ([facility]) Merlene Sadler, [employer]: [address], [place] [address], Ph. Attender: Merlene Sadler [facility] Medical 01/28/2020 12:00:00 AM EST [facility] ([facility]) Merlene Sadler, [employer]: [address], [place] [address], Ph. Attender: Merlene Sadler [facility] Medical 01/28/2020 12:00:00 AM EST [facility] ([facility]) Merlene Sadler, [employer]: [address], [place] [address], Ph. Attender: Merlene Sadler [facility] Medical 01/28/2020 12:00:00 AM EST [facility] ([facility]) Merlene Sadler, [employer]: [address], [place] [address], Ph. Attender: Merlene Sadler [facility] Medical 01/20/2020 12:00:00 AM EST [facility] ([facility]) Merlene Sadler, [employer]: [address], [place] [address], Ph. Attender: Merlene Sadler [facility] Medical 01/20/2020 12:00:00 AM EST [facility] ([facility]) Merlene Sadler, [employer]NER: [address], [place] [address], Ph. Attender: Merlene Sadler [facility] Medical 01/20/2020 12:00:00 AM EST [facility] ([facility]) Merlene Sadler, [employer]: [address], [place] [address], Ph. Attender: Merlene Sadler [facility] Medical 01/20/2020 12:00:00 AM EST [facility] ([facility]) Merlene Sadler, [employer]: [address], [place] [address], Ph. Attender: Merlene Sadler [facility] Medical 01/20/2020 12:00:00 AM EST [facility] ([facility]) Merlene Sadler, [employer]: [address], [place] [address], Ph. Attender: Merlene Sadler [facility] Medical 01/20/2020 12:00:00 AM EST [facility] ([facility]) Merlene Sadler, [employer]: [address], [place] [address], Ph. Attender: Merlene Sadler [facility] Medical 01/16/2020 12:00:00 AM EST [facility] ([facility]) Merlene Sdaler, FUN[employer]AL [employer]NER: [address], [place] [address], Ph. Attender: Merlene Sadler [facility] Medical 01/16/2020 12:00:00 AM EST [facility]DA ([facility]) Merlene Sadler, [employer]AL [employer]NER: [address], [place] [address], Ph. Attender: Merlene Sadler [facility] Medical 01/16/2020 12:00:00 AM EST [facility] ([facility]) Merlene Sadler [employer]: [address], [place] [address], Ph. Attender: Merlene Sadler [facility] Medical 01/16/2020 12:00:00 AM EST [facility] ([facility]) Merlene Sadler, FUN[employer]AL [employer]NER: [address], [place] [address], Ph. Attender: Merlene Sadler [facility] Medical 01/16/2020 12:00:00 AM EST [facility]ILDA ([facility]) Merlene Sadler [facility]: [address], [place] [address], Ph. Attender: Merlene Sadler [facility] Medical 01/16/2020 12:00:00 AM EST [facility]ILDA ([facility]) Merlene Sadler [employer]: [address], [place] [address], Ph. Attender: Merlene Sadler [facility] Medical 01/16/2020 12:00:00 AM EST [facility]DA ([facility]) Merlene Sadler [employer]: [address], [place] [address], Ph. Attender: Merlene Sadler [facility] Medical 01/08/2020 12:00:00 AM EST [facility]ILDA ([facility]) Merlene Sadler, [employer]AL [employer]NER: [address], [place] [address], Ph. Attender: Merlene Sadler [facility] Medical 01/08/2020 12:00:00 AM EST [facility]DA ([facility]) Merlene Sadler, [facility]: [address], [place] [address], Ph. Attender: Merlene Sadler [facility] Medical 01/08/2020 12:00:00 AM EST [facility]ILDA ([facility]) Merlene Sadler [employer]: [address], [place] [address], Ph. Attender: Merlene Sadler [facility] Medical 01/08/2020 12:00:00 AM EST [facility]ILDA ([facility]) Merlene Sadler, [employer]AL [employer]NER: [address], [place] [address], Ph. Attender: Merlene Sadler [facility] Medical 01/08/2020 12:00:00 AM EST [facility]DA ([facility]) Merlene Sadler, [facility]: [address], [place] [address], Ph. Attender: Merlene Sadler [facility] Medical 01/08/2020 12:00:00 AM EST HILDA ([facility]) Merlene Sadler [facility]: [address], [place] [address], Ph. Attender: Merlene Sadler [facility] Medical 01/08/2020 12:00:00 AM EST [facility]DA ([facility]) Merlene Sadler, [facility]: [address], [place] [address], Ph. Attender: Merlene Sadler [facility] Medical 01/08/2020 12:00:00 AM EST [facility]ILDA ([facility]) Merlene Sadler, [employer]NER: [address], [place] [address], Ph. Attender: Merlene Sadler [facility] Medical 01/08/2020 12:00:00 AM EST [facility]ILDA ([facility]) Merlene Sadler, [employer]AL [employer]NER: [address], [place] [address], Ph. Attender: Merlene Sadler [facility] Medical 01/08/2020 12:00:00 AM EST [facility] ([facility]) Outpatient Attender: PALOMO LOVE MD Main Office 01/07/2020 12:00:00 PM EVE MULTANI ([facility]) Terry Quiroga RPA-C: [address], [place] [address], Ph. Attender: TERRY QUIROGA RPA-C [facility] Medical 01/06/2020 12:00:00 AM EST [facility]DA ([facility]) Terry Quiroga RPA-C: [address], [place] [address], Ph. Attender: TERRY QUIROGA RPA-C [facility] Medical 01/06/2020 12:00:00 AM EST [facility]DA ([facility]) Terry Quiroga RPA-C: [address], [place] [address], Ph. Attender: TERRY QUIROGA RPA-C [facility] Medical 01/06/2020 12:00:00 AM EST [facility] ([facility]) Terry Quiroga RPA-C: [address], [place] [address], Ph. Attender: TERRY QUIROGA RPA-C [facility] Medical 01/06/2020 12:00:00 AM EST [facility] ([facility]) Terry Quiroga RPA-C: [address], [place] [address], Ph. Attender: TERRY QUIROGA RPA-C [facility] Medical 01/06/2020 12:00:00 AM EST [facility]ILDA ([facility]) Terry Quiroga, RPA-C: [address], [place] [address], Ph. Attender: TERRY QUIROGA RPA-C [facility] Medical 01/06/2020 12:00:00 AM EST [facility] ([facility]) Terry Quiroga RPA-C: [address], [place] [address], Ph. Attender: TERRY QUIROGA RPA-C [facility] Medical 01/06/2020 12:00:00 AM EST [facility] ([facility]) Terry Quiroga RPA-C: [address], [place] [address], Ph. Attender: TERRY QUIROGA RPA-C [facility] Medical 01/06/2020 12:00:00 AM EST [facility]DA ([facility]) Terry Quiroga, RPA-C: [address], [place] [address], Ph. Attender: TERRY QUIROGA RPA-C [facility] Medical 01/06/2020 12:00:00 AM EST [facility] ([facility]) Terry Quiroga RPA-C: [address], [place] [address], Ph. Attender: TERRY QUIROGA RPA-C [facility] Medical 01/06/2020 12:00:00 AM EST [facility]DA ([facility]) Terry Quiroga RPA-C: [address], [place] [address], Ph. Attender: TERRY QUIROGA RPA-C [facility] Medical 12/31/2019 12:00:00 AM EST [facility] ([facility]) Terry Quiroga RPA-C: [address], [place] [address], Ph. Attender: TERRY QUIROGA RPA-C [facility] Medical 12/31/2019 12:00:00 AM EST [facility]DA ([facility]) Terry Quiroga RPA-C: [address], [place] [address], Ph. Attender: TERRY QUIROGA RPA-C [facility] Medical 12/31/2019 12:00:00 AM EST [facility] ([facility]) Terry Quiroga RPA-C: [address], [place] [address], Ph. Attender: TERRY QUIROGA RPA-C [facility] Medical 12/31/2019 12:00:00 AM EST [facility] ([facility]) Terry Quiroga RPA-C: [address], [place] [address], Ph. Attender: TERRY QUIROGA RPA-C [facility] Medical 12/31/2019 12:00:00 AM EST [facility] ([facility]) Terry Quiroga RPA-C: [address], [place] [address], Ph. Attender: TERRY QUIROGA RPA-C [facility] Medical 12/31/2019 12:00:00 AM EST [facility] ([facility]) Terry Quiroga RPA-C: [address], [place] [address], Ph. Attender: TERRY QUIROGA RPA-C [facility] Medical 12/31/2019 12:00:00 AM EST [facility] ([facility]) Terry Quiroga, RPA-C: [address], [place] [address], Ph. Attender: TERRY QUIROGA RPA-C [facility] Medical 12/31/2019 12:00:00 AM EST [facility] ([facility]) Terry Quiroga RPA-C: [address], [place] [address], Ph. Attender: TERRY QUIROGA RPA-C [facility] Medical 12/31/2019 12:00:00 AM EST [facility] ([facility]) Terry Quiroga RPA-C: [address], [place] [address], Ph. Attender: TERRY QUIROGA RPA-C [facility] Medical 12/31/2019 12:00:00 AM EST [facility] ([facility]) Merlene Sadler, [employer]AL PL[employer]NER: [address], [place] [address], Ph. Attender: Merlene Sadler [facility] Medical 12/26/2019 12:00:00 AM EST [facility]DA ([facility]) Merlene Sadler, [facility]: [address], [place] [address], Ph. Attender: Merlene Sadler [facility] Medical 12/26/2019 12:00:00 AM EST [facility]DA ([facility]) Merlene Sadler FUN[employer]NER: [address], [place] [address], Ph. Attender: Merlene Sadler [facility] Medical 12/26/2019 12:00:00 AM EST [facility]DA ([facility]) Merlene Sadler, [employer]AL [employer]NER: [address], [place] [address], Ph. Attender: Merlene Sadler [facility] Medical 12/26/2019 12:00:00 AM EST [facility]DA ([facility]) Merlene Sadler, [facility]: [address], [place] [address], Ph. Attender: Merlene Sadler [facility] Medical 12/26/2019 12:00:00 AM EST [facility]ILDA ([facility]) Merlene Sadler, [facility]: [address], [place] [address], Ph. Attender: Merlene Sadler [facility] Medical 12/26/2019 12:00:00 AM EST [facility]ILDA ([facility]) Merlene Sadler, [facility]: [address], [place] [address], Ph. Attender: Merlene Sadler [facility] Medical 12/26/2019 12:00:00 AM EST [facility]ILDA ([facility]) Merlene Sadler, [facility]: [address], [place] [address], Ph. Attender: Merlene Sadler [facility] Medical 12/26/2019 12:00:00 AM EST [facility]ILDA ([facility]) Merlene Sadler, [employer]NER: [address], [place] [address], Ph. Attender: Merlene Sadler [facility] Medical 12/26/2019 12:00:00 AM EST [facility]DA ([facility]) Merlene Sadler, [employer]AL [employer]NER: [address], [place] [address], Ph. Attender: Merlene Sadler [facility] Medical 12/26/2019 12:00:00 AM EST [facility]ILDA ([facility]) Merlene Sadler, [employer]NER: [address], [place] [address], Ph. Attender: Merlene Sadler [facility] Medical 12/26/2019 12:00:00 AM EST [facility]ILDA ([facility]) Merlene Sadler, [employer]AL [employer]NER: [address], [place] [address], Ph. Attender: Merlene Sadler [facility] Medical 12/19/2019 12:00:00 AM EST [facility]ILDA ([facility]) Merlene Sadler, [employer]AL [employer]NER: [address], [place] [address], Ph. Attender: Merlene Sadler [facility] Medical 12/19/2019 12:00:00 AM EST HILDA ([facility]) Merlene Sadler, [employer]AL [employer]NER: [address], [place] [address], Ph. Attender: Merlene Sadler [facility] Medical 12/19/2019 12:00:00 AM EST [facility]ILDA ([facility]) Merlene Sadler, [employer]: [address], [place] [address], Ph. Attender: Merlene Sadler [facility] Medical 12/19/2019 12:00:00 AM EST [facility]ILDA ([facility]) Merlene Sadler, [employer]NER: [address], [place] [address], Ph. Attender: Merlene Sadler [facility] Medical 12/19/2019 12:00:00 AM EST [facility]DA ([facility]) Merlene Sadler, [employer]: [address], [place] [address], Ph. Attender: Merlene Sadler [facility] Medical 12/19/2019 12:00:00 AM EST [facility]DA ([facility]) Merlene Sadler, [employer]NER: [address], [place] [address], Ph. Attender: Merlene Sadler [facility] Medical 12/19/2019 12:00:00 AM EST [facility]ILDA ([facility]) Merlene Sadler, [employer]AL [employer]NER: [address], [place] [address], Ph. Attender: Merlene Sadler [facility] Medical 12/19/2019 12:00:00 AM EST [facility]ILDA ([facility]) Merlene Sadler, [employer]AL [employer]NER: [address], [place] [address], Ph. Attender: Merlene Sadler [facility] Medical 12/19/2019 12:00:00 AM EST [facility]ILDA ([facility]) Merlene Sadler, [employer]NER: [address], [place] [address], Ph. Attender: Merlene Sadler [facility] Medical 12/19/2019 12:00:00 AM EST [facility]ILDA ([facility]) Merlene Sadler, [employer]: [address], [place] [address], Ph. Attender: Merlene Sadler [facility] Medical 12/19/2019 12:00:00 AM EST [facility]ILDA ([facility]) Merlene Sadler [employer]: [address], [place] [address], Ph. Attender: Merlene Sadler [facility] Medical 12/19/2019 12:00:00 AM EST HILDA ([facility]) Merlene Sadler, [employer]: [address], [place] [address], Ph. Attender: Merlene Sadler [facility] 12/19/2019 12:00:00 AM EST HILDA ([facility]) Merlene Sadler FUN[employer] PL[employer]NER: [address], [place] [address], Ph. Attender: Merlene Sadler [facility] Medical 12/18/2019 12:00:00 AM EST [facility]ILDA ([facility]) Merlene Sadler, [employer]: [address], [place] [address], Ph. Attender: Merlene Sadler [facility] Medical 12/18/2019 12:00:00 AM EST HILDA ([facility]) Merlene Sadler, [facility]: [address], [place] [address], Ph. Attender: Merlene Sadler [facility] Medical 12/18/2019 12:00:00 AM EST [facility]ILDA ([facility]) Merlene Sadler, [employer]: [address], [place] [address], Ph. Attender: Merlene Sadler [facility] 12/18/2019 12:00:00 AM EST [facility]ILDA ([facility]) Merlene Sadler, [facility]: [address], [place] [address], Ph. Attender: Merlene Sadler [facility] Medical 12/18/2019 12:00:00 AM EST HILDA ([facility]) Merlene Sadler, [facility]: [address], [place] [address], Ph. Attender: Merlene Sadler [facility] Medical 12/18/2019 12:00:00 AM EST HILDA ([facility]) Merlene Sadler, [facility]: [address], [place] [address], Ph. Attender: Merlene Sadler [facility] Medical 12/18/2019 12:00:00 AM EST HILDA ([facility]) Merlene Sadler, [facility]: [address], [place] [address], Ph. Attender: Merlene Sadler [facility] [facility] 12/18/2019 12:00:00 AM EST [facility] ([facility]) Merlene Sadler, FUNERAL PLANNER: [address], [place] [address], Ph. Attender: Merlene Sadler [facility] 12/18/2019 12:00:00 AM EST [place] ([facility]) Merlene Sadler, FUNERAL PLANNER: [address], [address], [place] [address], Ph. Attender: Merlene Sadler [facility] 12/18/2019 12:00:00 AM EST [place] ([facility]) Merlene Sadler, FUNERAL PLANNER: [address], [address], [place] [address], Ph. Attender: Merlene Sadler [facility] 12/18/2019 12:00:00 AM EST [place] ([facility]) Merlene Sadler, FUNERAL PLANNER: [address], [place] [address], Ph. Attender: Merlene Sadler [facility] 12/18/2019 12:00:00 AM EST [place] ([facility]) Merlene Sadler, FUNERAL PLANNER: [address], [place] [address], Ph. Attender: Merlene Sadler [facility] 12/18/2019 12:00:00 AM EST [place] ([facility]) Merlene Sadler, FUNERAL PLANNER: [address], [place] [address], Ph. Attender: Merlene Sadler [facility] 12/18/2019 12:00:00 AM EST [facility] ([facility]) Merlene Sadler [facility]: [address], [address], [place] [address], Ph. Attender: Merlene Sadler [facility] 12/12/2019 12:00:00 AM EST [facility] ([facility]) Merlene Sadler FUNERAL PLANNER: [address], [address], [place] [address], Ph. Attender: Merlene Sadler [facility] 12/12/2019 12:00:00 AM EST [facility] ([facility]) Merlene Sadler, FUNERAL PLANNER: [address], [address], [place] [address], Ph. Attender: Merlene Sadler [facility] 12/12/2019 12:00:00 AM EST [facility] ([facility]) Merlene Sadler, [facility]: [address], [place] [address], Ph. Attender: Merlene Sadler [facility] 12/12/2019 12:00:00 AM EST [facility] ([facility]) Merlene Sadler [facility]: [address], [place] [address], Ph. Attender: Merlene Sadler [facility] 12/12/2019 12:00:00 AM EST [facility] ([facility]) Merlene Sadler [facility]: [address], [place] [address], Ph. Attender: Merlene Sadler [facility] 12/12/2019 12:00:00 AM EST [facility] ([facility]) Merlene Sadler, [facility]: [address], [address], [place] [address], Ph. Attender: Merlene Sadler [facility] 12/12/2019 12:00:00 AM EST [facility] ([facility]) Merlene Sadler, FUNERAL PLANNER: [address], [address], [place] [address], Ph. Attender: Merlene Sadler [facility] 12/12/2019 12:00:00 AM EST [facility] ([facility]) Merlene Sadler [facility]: [address], [place] [address], Ph. Attender: Merlene Sadler [facility] 12/12/2019 12:00:00 AM EST [facility] ([facility]) Merlene Sadler, [facility]: [address], [place] [address], Ph. Attender: Merlene Sadler [facility] 12/12/2019 12:00:00 AM EST [facility] ([facility]) Merlene Sadler, [facility]: [address], [address], [place] [address], Ph. Attender: Merlene Sadler [facility] 12/12/2019 12:00:00 AM EST [facility] ([facility]) Merlene Sadler, [facility]: [address], [address], [place] [address], Ph. Attender: Merlene Sadler [facility] 12/12/2019 12:00:00 AM EST [facility] ([facility]) Merlene Sadler, [facility]: [address], [address], [place] [address], Ph. Attender: Merlene Sadler [facility] Medical 12/12/2019 12:00:00 AM EST [facility] ([facility]) Merlene Sadler, FUNERAL PLANNER: [address], [address], [place] [address], Ph. Attender: Merlene Sadler [facility] Medical 12/12/2019 12:00:00 AM EST [facility] ([facility]) Merlene Sadler, FUNERAL PLANNER: [address], [address], [place] [address], Ph. Attender: Merlene Sadler [facility] Medical 12/12/2019 12:00:00 AM EST [facility] ([facility]) Terry Quiroga RPA-C: [address], [address], [place] [address], Ph. Attender: TERRY QUIROGA RPA-C [facility] Medical 12/11/2019 12:00:00 AM EST [facility] ([facility]) Terry Quiroga RPA-C: [address], [address], [place] [address], Ph. Attender: TERRY QUIROGA RPA-C [facility] Medical 12/11/2019 12:00:00 AM EST [facility] ([facility]) Terry Quiroga RPA-C: [address], [address], [place] [address], Ph. Attender: TERRY QUIROGA RPA-C [facility] Medical 12/11/2019 12:00:00 AM EST [facility] ([facility]) Terry D Quiroga, RPA-C: [address], [address], [place] [address], Ph. Attender: TERRY QUIROGA RPA-C [facility] Medical 12/11/2019 12:00:00 AM EST [facility] ([facility]) Terry Quiroga, RPA-C: [address], [address], [place] [address], Ph. Attender: TERRY QUIROGA RPA-C [facility] Medical 12/11/2019 12:00:00 AM EST [facility] ([facility]) Terry Quiroga, RPA-C: [address], [address], [place] [address], Ph. Attender: TERRY QUIROGA RPA-C [facility] Medical 12/11/2019 12:00:00 AM EST [facility] ([facility]) Terry Quiroga, RPA-C: [address], [address], [place] [address], Ph. Attender: TERRY QUIROGA RPA-C [facility] Medical 12/11/2019 12:00:00 AM EST [facility] ([facility]) Terry Quiroga, RPA-C: [address], [address], [place] [address], Ph. Attender: TERRY QUIROGA RPA-C [facility] Medical 12/11/2019 12:00:00 AM EST [facility] ([facility]) Terry Quiroga, RPA-C: [address], [address], [place] [address], Ph. Attender: TERRY QUIROGA RPA-C [facility] Medical 12/11/2019 12:00:00 AM EST [facility] ([facility]) Terry Quiroga, RPA-C: [address], [address], [place] [address], Ph. Attender: TERRY QUIROGA RPA-C [facility] Medical 12/11/2019 12:00:00 AM EST [facility] ([facility]) Terry Quiroga, RPA-C: [address], [address], [place] [address], Ph. Attender: TERRY QUIROGA RPA-C [facility] Medical 12/11/2019 12:00:00 AM EST [facility] ([facility]) Terry Quiroga, RPA-C: [address], [address], [place] [address], Ph. Attender: TERRY QUIROGA RPA-C [facility] Medical 12/11/2019 12:00:00 AM EST [facility] ([facility]) Terry Quiroga, RPA-C: [address], [address], [place] [address], Ph. Attender: TERRY QUIROGA RPA-C [facility] Medical 12/11/2019 12:00:00 AM EST [facility] ([facility]) Terry Quiroga, RPA-C: [address], [address], [place] [address], Ph. Attender: TERRY QUIROGA RPA-C [facility] Medical 12/11/2019 12:00:00 AM EST [facility] ([facility]) Terry Quiroga, RPA-C: [address], [address], [place] [address], Ph. Attender: TERRY MONCADA [facility] Medical 12/11/2019 12:00:00 AM EST [facility] ([facility]) Merlene Sadler, FUNERAL PLANNER: [address], [address], [place] [address], Ph. Attender: Merlene Sadler [facility] Medical 12/03/2019 12:00:00 AM EDT [facility] ([facility]) Merlene Sadler, FUNERAL PLANNER: [address], [address], [place] [address], Ph. Attender: Merlene Sadler [facility] Medical 12/03/2019 12:00:00 AM EDT [facility] ([facility]) Merlene Sadler, FUNERAL PLANNER: [address], [address], [place] [address], Ph. Attender: Merlene Sadler [facility] Medical 12/03/2019 12:00:00 AM EDT [facility] ([facility]) Merlene Sadler, FUNERAL PLANNER: [address], [address], [place] [address], Ph. Attender: Merlene Sadler [facility] Medical 12/03/2019 12:00:00 AM EDT [facility] ([facility]) Merlene Sadler, FUNERAL PLANNER: [address], [address], [place] [address], Ph. Attender: Merlene Sadler [facility] Medical 12/03/2019 12:00:00 AM EDT [facility] ([facility]) Merlene Sadler, FUNERAL PLANNER: [address], [address], [place] [address], Ph. Attender: Merlene Sadler [place] [facility] Medical 12/03/2019 12:00:00 AM EDT [facility] ([facility]) Merlene Sadler, FUNERAL PLANNER: [address], [address], [place] [address], Ph. Attender: Merlene Sadler [facility] 12/03/2019 12:00:00 AM EDT [facility] ([facility]) Merlene Sadler, FUNERAL PLANNER: [address], [address], [place] [address], Ph. Attender: Merlene Sadler [facility] 12/03/2019 12:00:00 AM EDT [place] ([facility]) Merlene Sadler, FUNERAL PLANNER: [address], [address], [place] [address], Ph. Attender: Merlene Sadler [facility] 12/03/2019 12:00:00 AM EDT [place] ([facility]) Merlene Sadler, FUNERAL PLANNER: [address], [address], [place] [address], Ph. Attender: Merlene Sadler [facility] Medical 12/03/2019 12:00:00 AM EDT [facility] ([facility]) Merlene Sadler, FUNERAL PLANNER: [address], [address], [place] [address], Ph. Attender: Merlene Sadler [facility] Medical 12/03/2019 12:00:00 AM EDT [facility] ([facility]) Merlene Sadler, FUNERAL PLANNER: [address], [address], [place] [address], Ph. Attender: Merlene Sadler [facility] Medical 12/03/2019 12:00:00 AM EDT [facility] ([facility]) Merlene Sadler, FUNERAL PLANNER: [address], [address], [place] [address], Ph. Attender: Merlene Sadler [facility] 12/03/2019 12:00:00 AM EDT [facility] ([facility]) Merlene Sadler, FUNERAL PLANNER: [address], [address], [place] [address], Ph. Attender: Merlene Sadler [facility] 12/03/2019 12:00:00 AM EDT [facility] ([facility]) Merlene Sadler, FUNERAL PLANNER: [address], [address], [place] [address], Ph. Attender: Merlene Sadler [facility] Medical 12/03/2019 12:00:00 AM EDT [facility] ([facility]) Merlene Sadler, FUNERAL PLANNER: [address], [address], [place] [address], Ph. Attender: Merlene Sadler [facility] 12/03/2019 12:00:00 AM EDT [place] ([facility]) Merlene Sadler, FUNERAL PLANNER: [address], [address], [place] [address], Ph. Attender: Merlene Sadler [facility] 11/26/2019 12:00:00 AM EDT [place] ([facility]) Merlene Sadler, FUNERAL PLANNER: [address], [address], [place] [address], Ph. Attender: Merlene Sadler [facility] 11/26/2019 12:00:00 AM EDT [place] ([facility]) Merlene Sadler, [facility]: [address], [address], [place] [address], Ph. Attender: Merlene Sadler [facility] 11/26/2019 12:00:00 AM EDT [place] ([facility]) Merlene Sadler, FUNERAL PLANNER: [address], [address], [place] [address], Ph. Attender: Merlene Sadler [facility] 11/26/2019 12:00:00 AM EDT [place] ([facility]) Merlene Sadler, [facility]: [address], [address], [place] [address], Ph. Attender: Merlene Sadler [facility] 11/26/2019 12:00:00 AM EDT [place] ([facility]) Merlene Sadler, [facility]: [address], [address], [place] [address], Ph. Attender: Merlene Sadler [facility] Medical 11/26/2019 12:00:00 AM EDT [place] ([facility]) Merlene Sadler [facility]: [address], [address], [place] [address], Ph. Attender: Merlene Sadler [facility] 11/26/2019 12:00:00 AM EDT [place] ([facility]) Merlene Sadler, [facility]: [address], [address], [place] [address], Ph. Attender: Merlene Sadler [facility] 11/26/2019 12:00:00 AM EDT [place] ([facility]) Merlene Sadler, [facility]: [address], [address], [place] [address], Ph. Attender: Merlene Sadler [facility] 11/26/2019 12:00:00 AM EDT [place] ([facility]) Merlene Sadler, FUNERAL PLANNER: [address], [address], [place] [address], Ph. Attender: Merlene Sadler [facility] 11/26/2019 12:00:00 AM EDT [place] ([facility]) Merlene Sadler, FUNERAL PLANNER: [address], [address], [place] [address], Ph. Attender: Merlene Sadler [facility] 11/26/2019 12:00:00 AM EDT [place] ([facility]) Merlene Sadler, FUNERAL PLANNER: [address], [address], [place] [address], Ph. Attender: Merlene Sadler [facility] 11/26/2019 12:00:00 AM EDT [place] ([facility]) Merlene Sadler, FUNERAL PLANNER: [address], [address], [place] [address], Ph. Attender: Merlene Sadler [facility] 11/26/2019 12:00:00 AM EDT [place] ([facility]) Merlene Sadler, FUNERAL PLANNER: [address], [address], [place] [address], Ph. Attender: Merlene Sadler [facility] 11/26/2019 12:00:00 AM EDT [place] ([facility]) Merlene Sadler, FUNERAL PLANNER: [address], [address], [place] [address], Ph. Attender: Merlene Sadler [facility] 11/26/2019 12:00:00 AM EDT [place] ([facility]) Merlene Sadler, [facility]: [address], [address], [place] [address], Ph. Attender: Merlene Sadler [facility] Medical 11/26/2019 12:00:00 AM EDT [place] ([facility]) Merlene Sadler, [facility]: [address], [address], [place] [address], Ph. Attender: Merlene Sadler [facility] Medical 11/26/2019 12:00:00 AM EDT [place] ([facility]) Outpatient Attender: TINO FALK [facility] 09/2019 08:31:03 AM EDT [facility] Outpatient Attender: TERRY MONCADA [facility] 10/28/2019 04:06:01 PM EDT [facility] Outpatient Attender: TINO FALK [facility] 10/07 08:58:02 AM EDT [facility] Outpatient Attender: TERRY MONCADA [facility] 10/28/2019 08:58:02 AM EDT [facility] Outpatient Attender: TINO FALK [facility] 10/06 08:16:01 AM EDT [facility] Outpatient Attender: TINO FALK [facility] 09/2019 04:14:00 PM EDT [facility] Outpatient Attender: TERRY MONCADA [facility] 10/14/2019 09:02:02 AM EDT [facility] Outpatient Attender: TERRY WASHBURNC [facility] 10/10/2019 02:32:00 PM EDT [facility] Outpatient Attender: TINO FALK [facility] 0905/2019 02:32:00 PM EDT [facility] Outpatient Attender: TINO FALK [facility] 09/07 03:39:01 PM EDT [facility] Outpatient Attender: TINO FALK [facility] 09/07 08:14:02 AM EDT [facility] Outpatient Attender: TINO FALK [facility] 09/06 10:06:04 AM EDT [facility] Outpatient Attender: TINO FALK [facility] 09/06 09:18:01 AM EDT [facility] Outpatient Attender: TERRY QUIROGA ANTWAN [facility] 09/24/2019 11:18:01 AM EDT [facility] Outpatient Attender: TINO FALK [facility] 09/05 07:41:01 AM EDT [facility] Outpatient Attender: TINO AFLK [facility] 06/2019 03:54:01 PM EDT [facility] Outpatient Attender: RPABHA SHELLEY MD 09/10/2019 10:30:09 A M EDT [facility] Outpatient Attender: PRABHA SHELLEY MD 09/08/2019 12:53:00 P M EDT [facility] Medications Medication Brand Name Start Date Product Form Dose Route Admi nistrative Instructions Pharmacy Instructions Status Indications Reaction Description Data Source(s) atorvastatin 20 MG Oral Tablet Atorvastatin Calcium 01/10/2020 1 2:00:00 AM EST ORAL active [facility] ( [facility]) Escitalopram 20 MG Oral Tablet Escitalopram Oxalate 01/06/2020 1 2:00:00 AM EST ORAL active [facility] ( [facility]) Trazodone Hydrochloride 50 MG Oral Tablet Trazodone HCL 01/06/2020 12:00:00 AM EST ORAL active [facility] ([facility] Hydroxyzine Hydrochloride 25 MG Oral Tablet Hydroxyzine HCL 01/06/2020 12:00:00 AM EST ORAL active [facility] ([facility]) Omeprazole 20 MG Delayed Release Oral Capsule Omeprazole 01/06/2020 12:00:00 AM EST ORAL active [facility] ([facility] Lorazepam 1 MG Oral Tablet Lorazepam 01/06/2020 12:00:00 AM EST ORAL active [facility] ([facility]) cetirizine hydrochloride 10 MG Oral Tablet Cetirizine HCL 01/06/2020 12:00:00 AM EST ORAL active [facility] ([facility]) Omeprazole 20 MG Delayed Release Oral Ta blet omeprazole 20 mg tablet,delayed release Take 1 tablet po QAM on an empty stomach omeprazole 20 mg tablet,delayed release Take 1 tablet po QAM on an empty stomach 09/24/2019 12:00:00 AM EDT completed omeprazole 20 MG Del ayed Release Oral Tablet [place] ([facility]) Omeprazole 20 MG Delayed Release Oral Ta blet omeprazole 20 mg tablet,delayed release Take 1 tablet po QAM on an empty stomach omeprazole 20 mg tablet,delayed release Take 1 tablet po QAM on an empty stomach 09/24/2019 12:00:00 AM EDT completed omeprazole 20 MG Del ayed Release Oral Tablet [place] ([facility]) Escitalopram 10 MG Oral Tablet [Lexapro] Lexapro 10 mg tablet Take 1 tablet by mouth once daily Lexapro 10 mg tablet Take 1 tablet by mouth once daily 09/10/2019 12:00:00 AM EDT completed escitalopram 10 MG Oral Tablet [Lexapro] [place] ([facility]) Lorazepam 1 MG Oral Tablet lorazepam 1 m g tablet Take 0.5-1 tablet po daily in the evening: MDD 1mg lorazepam 1 mg tablet Take 0.5-1 tablet po daily in the evening: MDD 1mg 09/10/2019 12:00:00 AM EDT c ompleted lorazepam 1 MG Oral Tablet [place] ([facility]) Hydroxyzine Hydrochloride 10 MG Oral Tab let hydroxyzine HCl 10 mg tablet Take 1- 2 tablets po q 6 hrs prn hydroxyzine HCl 10 mg tablet Take 1-2 ta blets po q 6 hrs prn 09/10/2019 12:00:00 AM EDT completed hydroxyzine hydrochloride 10 MG Oral Tablet [place] ([facility]) Escitalopram 10 MG Oral Tablet [Lexapro] Lexapro 10 mg tablet Take 1 tablet by mouth once daily Lexapro 10 mg tablet Take 1 tablet by mouth once daily 09/10/2019 12:00:00 AM EDT completed escitalopram 10 MG Oral Tablet [Lexapro] [facility]DA ([facility]) Hydroxyzine Hydrochloride 10 MG Oral Tab let hydroxyzine HCl 10 mg tablet Take 1- 2 tablets po q 6 hrs prn hydroxyzine HCl 10 mg tablet Take 1-2 ta blets po q 6 hrs prn 09/10/2019 12:00:00 AM EDT completed hydroxyzine hydrochloride 10 MG Oral Tablet [facility] ([facility]) Lorazepam 1 MG Oral Tablet lorazepam 1 m g tablet Take 0.5-1 tablet po daily in the evening: MDD 1mg lorazepam 1 mg tablet Take 0.5-1 tablet po daily in the evening: MDD 1mg 09/10/2019 12:00:00 AM EDT c ompleted lorazepam 1 MG Oral Tablet [facility] ([facility]) Hydroxyzine Hydrochloride 10 MG Oral Tab let hydroxyzine HCl 10 mg tablet TAKE 1 TO 2 TABLETS BY MOUTH EVERY 6 HOURS NEEDED hydroxyzine HCl 10 mg tablet TAKE 1 TO 2 TABLETS BY MOUTH EVERY 6 HOURS NEEDED completed hydroxyzine hydrochloride 10 MG Oral Tablet [facility] ([facility]) Hydroxyzine Hydrochloride 10 MG Oral Tab let hydroxyzine HCl 10 mg tablet TAKE 1 TO 2 TABLETS BY MOUTH EVERY 6 HOURS NEEDED hydroxyzine HCl 10 mg tablet TAKE 1 TO 2 TABLETS BY MOUTH EVERY 6 HOURS NEEDED completed hydroxyzine hydrochloride 10 MG Oral Tablet [facility]DA ([facility]) Trazodone Hydrochloride 50 MG Oral Table t trazodone 50 mg tablet TAKE 1 TABLET BY MOUTH ONCE DAILY AT BEDTIME trazodone 50 mg tablet TAKE 1 TABLET BY MOUTH ONCE DAILY AT BEDTIME completed trazodone hydrochloride 50 MG Oral Tablet [facility] ([facility]) Hydroxyzine Hydrochloride 10 MG Oral Tab let hydroxyzine HCl 10 mg tablet TAKE 1 TO 2 TABLETS BY MOUTH EVERY 6 HOURS NEEDED hydroxyzine HCl 10 mg tablet TAKE 1 TO 2 TABLETS BY MOUTH EVERY 6 HOURS NEEDED completed hydroxyzine hydrochloride 10 MG Oral Tablet [facility] ([facility]) Escitalopram 10 MG Oral Tablet escitalop yuko 10 mg tablet TAKE 1 TABLET BY MOUTH ONCE DAILY escitalopram 10 mg tablet TAKE 1 TABLET BY MOUTH ONCE DAILY completed escitalopram 10 MG Oral T ablet [facility] ([facility]) Escitalopram 10 MG Oral Tablet escitalop yuko 10 mg tablet TAKE 1 TABLET BY MOUTH ONCE DAILY escitalopram 10 mg tablet TAKE 1 TABLET BY MOUTH ONCE DAILY completed escitalopram 10 MG Oral T ablet [facility] ([facility]) Escitalopram 10 MG Oral Tablet escitalop yuko 10 mg tablet TAKE 1 TABLET BY MOUTH ONCE DAILY escitalopram 10 mg tablet TAKE 1 TABLET BY MOUTH ONCE DAILY completed escitalopram 10 MG Oral T ablet [facility] ([facility]) Hydroxyzine Hydrochloride 10 MG Oral Tab let hydroxyzine HCl 10 mg tablet TAKE 1 TO 2 TABLETS BY MOUTH EVERY 6 HOURS NEEDED hydroxyzine HCl 10 mg tablet TAKE 1 TO 2 TABLETS BY MOUTH EVERY 6 HOURS NEEDED completed hydroxyzine hydrochloride 10 MG Oral Tablet [facility] ([facility]) Hydroxyzine Hydrochloride 10 MG Oral Tab let hydroxyzine HCl 10 mg tablet TAKE 1 TO 2 TABLETS BY MOUTH EVERY 6 HOURS NEEDED hydroxyzine HCl 10 mg tablet TAKE 1 TO 2 TABLETS BY MOUTH EVERY 6 HOURS NEEDED completed hydroxyzine hydrochloride 10 MG Oral Tablet [facility] ([facility]) Escitalopram 10 MG Oral Tablet escitalop yuko 10 mg tablet TAKE 1 TABLET BY MOUTH ONCE DAILY escitalopram 10 mg tablet TAKE 1 TABLET BY MOUTH ONCE DAILY completed escitalopram 10 MG Oral T ablet [facility] ([facility]) Hydroxyzine Hydrochloride 10 MG Oral Tab let hydroxyzine HCl 10 mg tablet TAKE 1 TO 2 TABLETS BY MOUTH EVERY 6 HOURS NEEDED hydroxyzine HCl 10 mg tablet TAKE 1 TO 2 TABLETS BY MOUTH EVERY 6 HOURS NEEDED completed hydroxyzine hydrochloride 10 MG Oral Tablet [facility] ([facility]) Escitalopram 10 MG Oral Tablet escitalop yuko 10 mg tablet TAKE 1 TABLET BY MOUTH ONCE DAILY escitalopram 10 mg tablet TAKE 1 TABLET BY MOUTH ONCE DAILY completed escitalopram 10 MG Oral T ablet [facility] ([facility]) Trazodone Hydrochloride 50 MG Oral Table t trazodone 50 mg tablet TAKE 1 TABLET BY MOUTH ONCE DAILY AT BEDTIME trazodone 50 mg tablet TAKE 1 TABLET BY MOUTH ONCE DAILY AT BEDTIME completed trazodone hydrochloride 50 MG Oral Tablet [facility]) Escitalopram 10 MG Oral Tablet escitalop yuko 10 mg tablet TAKE 1 TABLET BY MOUTH ONCE DAILY escitalopram 10 mg tablet TAKE 1 TABLET BY MOUTH ONCE DAILY completed escitalopram 10 MG Oral T ablet [facility] ([facility]) Hydroxyzine Hydrochloride 10 MG Oral Tab let hydroxyzine HCl 10 mg tablet TAKE 1 TO 2 TABLETS BY MOUTH EVERY 6 HOURS NEEDED hydroxyzine HCl 10 mg tablet TAKE 1 TO 2 TABLETS BY MOUTH EVERY 6 HOURS NEEDED completed hydroxyzine hydrochloride 10 MG Oral Tablet [facility] ([facility]) Escitalopram 10 MG Oral Tablet escitalop yuko 10 mg tablet TAKE 1 TABLET BY MOUTH ONCE DAILY escitalopram 10 mg tablet TAKE 1 TABLET BY MOUTH ONCE DAILY completed escitalopram 10 MG Oral T ablet [facility] ([facility]) Hydroxyzine Hydrochloride 10 MG Oral Tab let hydroxyzine HCl 10 mg tablet TAKE 1 TO 2 TABLETS BY MOUTH EVERY 6 HOURS NEEDED hydroxyzine HCl 10 mg tablet TAKE 1 TO 2 TABLETS BY MOUTH EVERY 6 HOURS NEEDED completed hydroxyzine hydrochloride 10 MG Oral Tablet [facility] ([facility]) Trazodone Hydrochloride 50 MG Oral Table t trazodone 50 mg tablet TAKE 1 TABLET BY MOUTH ONCE DAILY AT BEDTIME trazodone 50 mg tablet TAKE 1 TABLET BY MOUTH ONCE DAILY AT BEDTIME completed trazodone hydrochloride 50 MG Oral Tablet [facility] ([facility]) Escitalopram 10 MG Oral Tablet escitalop yuko 10 mg tablet TAKE 1 TABLET BY MOUTH ONCE DAILY escitalopram 10 mg tablet TAKE 1 TABLET BY MOUTH ONCE DAILY completed escitalopram 10 MG Oral T ablet [facility] ([facility]) Hydroxyzine Hydrochloride 10 MG Oral Tab let hydroxyzine HCl 10 mg tablet TAKE 1 TO 2 TABLETS BY MOUTH EVERY 6 HOURS NEEDED hydroxyzine HCl 10 mg tablet TAKE 1 TO 2 TABLETS BY MOUTH EVERY 6 HOURS NEEDED completed hydroxyzine hydrochloride 10 MG Oral Tablet [facility] ([facility]) Trazodone Hydrochloride 50 MG Oral Table t trazodone 50 mg tablet TAKE 1 TABLET BY MOUTH ONCE DAILY AT BEDTIME trazodone 50 mg tablet TAKE 1 TABLET BY MOUTH ONCE DAILY AT BEDTIME completed trazodone hydrochloride 50 MG Oral Tablet [facility] ([facility]) Hydroxyzine Hydrochloride 10 MG Oral Tab let hydroxyzine HCl 10 mg tablet TAKE 1 TO 2 TABLETS BY MOUTH EVERY 6 HOURS NEEDED hydroxyzine HCl 10 mg tablet TAKE 1 TO 2 TABLETS BY MOUTH EVERY 6 HOURS NEEDED completed hydroxyzine hydrochloride 10 MG Oral Tablet [place] ([facility]) Escitalopram 10 MG Oral Tablet escitalop yuko 10 mg tablet TAKE 1 TABLET BY MOUTH ONCE DAILY escitalopram 10 mg tablet TAKE 1 TABLET BY MOUTH ONCE DAILY completed escitalopram 10 MG Oral T ablet [facility] ([facility]) Escitalopram 10 MG Oral Tablet escitalop yuko 10 mg tablet TAKE 1 TABLET BY MOUTH ONCE DAILY escitalopram 10 mg tablet TAKE 1 TABLET BY MOUTH ONCE DAILY completed escitalopram 10 MG Oral T ablet [facility] ([facility]) Insurance Providers Payer name Policy type / Coverage type Policy ID Covered alliance party ID Covered alliance party's relationship to mahajan Policy Mahajan Plan Information SELF PAY ONLY [id number] SP [id number] Sliding Fee Scale P None S No ne [facility] COMMUN[facility] [id number] SP [id number] MEDICAID [id number] MEDICAID [id number] SP [id number] [facility] [id number] SP [id number] [facility] COMP [id number] SP [id number] SELF PAY ONLY [id number] SP [id number] O UNAVAILABLE UNAVAILA BLE SELF PAY UNAVAILABLE SP UNAVAILA BLE ANTHEM BENEFIT ADMINISTRATORS [id number] SP [id number] EXCELLUS BCBS B [id number] S TAE [id number] [place] 302/307 [id number] SP [id number] [place] 306/806 [id number] SP [id number] Self Pay S UNAVAILABLE S UNAVAILA BLE AETNA [facility] [id number] MO2 [id number] Problems, Conditions, and Diagnoses Code Display Name Description Problem Type Effective Dates Data Source(s) 222670293 Elevated blood-pressure reading without diagnosis of hypertension Elevated Blood-pressure Reading without Diagnosis of Hypertension Problem 02/02/2020 12:00:00 AM EVE STEVENS ([facility]) [id number] Elevated blood-pressure reading without diagnosis of hypertension Elevated Blood-pressure Reading without Diagnosis of Hypertension Problem 02/02/2020 12:00:00 AM EVE HILDA ([facility]) [id number] Elevated blood-pressure reading without diagnosis of hypertension Elevated Blood-pressure Reading without Diagnosis of Hypertension Problem 02/02/2020 12:00:00 AM EST [facility] ([facility]) [id number] Elevated blood-pressure reading without diagnosis of hypertension Elevated Blood-pressure Reading without Diagnosis of Hypertension Problem 02/02/2020 12:00:00 AM EST [facility] ([facility]) [id number] Gastroesophageal reflux disease Gastroesophageal reflux disease Problem 01/07/2020 12:00:00 AM EST [facility] ([facility]) [id number] Palpitations Palpitations Problem 01/07/2020 12:00:00 A M EST [facility] ([facility]) [id number] Body mass index 30+ - obesity Body mass index 30+ - ob esity Problem 01/07/2020 12:00:00 AM EST [facility] ([facility]) [id number] Electrocardiogram abnormal Electrocardiogram abnormal Problem 01/07/2020 12:00:00 AM EST [facility] ([facility]) [id number] Precordial pain Precordial pain Problem 01/07/2020 12:0 0:00 AM EST [facility] ([facility]) [id number] Panic disorder without agoraphobia Panic Disorde r without Agoraphobia Problem 12/29/2019 12:00:00 AM EST [facility] ([facility]) [id number] Panic disorder without agoraphobia Panic Disorde r without Agoraphobia Problem 12/29/2019 12:00:00 AM EST [facility] ([facility]) [id number] Panic disorder without agoraphobia Panic Disorde r without Agoraphobia Problem 12/29/2019 12:00:00 AM EST [facility] ([facility]) [id number] Panic disorder without agoraphobia Panic Disorde r without Agoraphobia Problem 12/29/2019 12:00:00 AM EST [facility] ([facility]) [id number] Panic disorder without agoraphobia Panic Disorde r without Agoraphobia Problem 12/29/2019 12:00:00 AM EST [facility] ([facility]) [id number] Panic disorder without agoraphobia Panic Disorde r without Agoraphobia Problem 12/29/2019 12:00:00 AM EST [facility] ([facility]) [id number] Panic disorder without agoraphobia Panic Disorde r without Agoraphobia Problem 12/29/2019 12:00:00 AM EST [facility] ([facility]) [id number] Panic disorder without agoraphobia Panic Disorde r without Agoraphobia Problem 12/29/2019 12:00:00 AM EST [facility] ([facility]) [id number] Panic disorder without agoraphobia Panic Disorde r without Agoraphobia Problem 12/29/2019 12:00:00 AM EST [facility] ([facility]) [id number] Panic disorder without agoraphobia Panic Disorde r without Agoraphobia Problem 12/29/2019 12:00:00 AM EST [facility] ([facility]) [id number] Panic disorder without agoraphobia Panic Disorde r without Agoraphobia Problem 12/29/2019 12:00:00 AM EST [facility] ([facility]) [id number] Psychophysiologic insomnia Psychophysiologic Insomnia Problem 12/11/2019 12:00:00 AM EST [facility] ([facility]) [id number] Psychophysiologic insomnia Psychophysiologic Insomnia Problem 12/11/2019 12:00:00 AM EST [facility] ([facility]) [id number] Psychophysiologic insomnia Psychophysiologic Insomnia Problem 12/11/2019 12:00:00 AM EST [facility] ([facility]) [id number] Psychophysiologic insomnia Psychophysiologic Insomnia Problem 12/11/2019 12:00:00 AM EST [facility] ([facility]) [id number] Psychophysiologic insomnia Psychophysiologic Insomnia Problem 12/11/2019 12:00:00 AM EST [facility] ([facility]) [id number] Psychophysiologic insomnia Psychophysiologic Insomnia Problem 12/11/2019 12:00:00 AM EST [facility] ([facility]) [id number] Psychophysiologic insomnia Psychophysiologic Insomnia Problem 12/11/2019 12:00:00 AM EST [facility] ([facility]) 307061901 Psychophysiologic insomnia Psychophysiologic Insomnia Problem 12/11/2019 12:00:00 AM EST [facility] ([facility]) [id number] Psychophysiologic insomnia Psychophysiologic Insomnia Problem 12/11/2019 12:00:00 AM EST [facility] ([facility]) [id number] Psychophysiologic insomnia Psychophysiologic Insomnia Problem 12/11/2019 12:00:00 AM EST [facility] ([facility]) [id number] Psychophysiologic insomnia Psychophysiologic Insomnia Problem 12/11/2019 12:00:00 AM EST [facility] ([facility]) 566456915 Psychophysiologic insomnia Psychophysiologic Insomnia Problem 12/11/2019 12:00:00 AM EST [facility] ([facility]) 757937738 Psychophysiologic insomnia Psychophysiologic Insomnia Problem 12/11/2019 12:00:00 AM EST [facility] ([facility]) [id number] Psychophysiologic insomnia Psychophysiologic Insomnia Problem 12/11/2019 12:00:00 AM EST [facility] ([facility]) [id number] Psychophysiologic insomnia Psychophysiologic Insomnia Problem 12/11/2019 12:00:00 AM EST [facility] ([facility]) [id number] Generalized anxiety disorder Generalized Anxiety Disor sallie Problem 12/01/2019 12:00:00 AM EDT [facility] ([facility]) [id number] Generalized anxiety disorder Generalized Anxiety Disor sallie Problem 12/01/2019 12:00:00 AM EDT [facility] ([facility]) 13345452 Generalized anxiety disorder Generalized Anxiety Disor sallie Problem 12/01/2019 12:00:00 AM EDT [facility] ([facility]) 84308089 Generalized anxiety disorder Generalized Anxiety Disor sallie Problem 12/01/2019 12:00:00 AM EDT [facility] ([facility]) 95278248 Generalized anxiety disorder Generalized Anxiety Disor sallie Problem 12/01/2019 12:00:00 AM EDT [facility] ([facility]) 23103747 Generalized anxiety disorder Generalized Anxiety Disor sallie Problem 12/01/2019 12:00:00 AM EDT [facility] ([facility]) 20179456 Generalized anxiety disorder Generalized Anxiety Disor sallie Problem 12/01/2019 12:00:00 AM EDT [facility] ([facility]) 88248855 Generalized anxiety disorder Generalized Anxiety Disor sallie Problem 12/01/2019 12:00:00 AM EDT [facility] ([facility]) 37913083 Generalized anxiety disorder Generalized Anxiety Disor sallie Problem 12/01/2019 12:00:00 AM EDT [facility] ([facility]) 39445172 Generalized anxiety disorder Generalized Anxiety Disor sallie Problem 12/01/2019 12:00:00 AM EDT [facility] ([facility]) 17610774 Generalized anxiety disorder Generalized Anxiety Disor sallie Problem 12/01/2019 12:00:00 AM EDT [facility] ([facility]) 00527050 Generalized anxiety disorder Generalized Anxiety Disor sallie Problem 12/01/2019 12:00:00 AM EDT [facility] ([facility]) 24262769 Generalized anxiety disorder Generalized Anxiety Disor sallie Problem 12/01/2019 12:00:00 AM EDT [facility] ([facility]) 06719461 Generalized anxiety disorder Generalized Anxiety Disor sallie Problem 12/01/2019 12:00:00 AM EDT [facility] ([facility]) 43862301 Generalized anxiety disorder Generalized Anxiety Disor sallie Problem 12/01/2019 12:00:00 AM EDT [facility] ([facility]) 80166087 Generalized anxiety disorder Generalized Anxiety Disor sallie Problem 12/01/2019 12:00:00 AM EDT [facility] ([facility]) 58628562 Generalized anxiety disorder Generalized Anxiety Disor sallie Problem 12/01/2019 12:00:00 AM EDT [facility] ([facility]) 427.89 Bradycardia Bradycardia 10/28/2019 04:05:45 PM EDT [facility] [id number] Chest pain, unspecified Chest pain, unspecified 10/28/2019 04:05:45 PM EDT [facility] 363417360 Chronic insomnia Chronic insomnia 10/28/2019 04 :05:45 PM EDT [facility] 300.02 GENERALIZED ANXIETY DISORDER GENERALIZED ANXIETY DISOR SALLIE 10/14/2019 09:01:07 AM EDT [facility] 300.01 PANIC DISORDER PANIC DISORDER 10/14/2019 09:01: 07 AM EDT [facility] 530.81 Gastro-esophageal reflux disease without esophagitis Gastro-esophageal reflux disease without esophagitis 09/24/2019 11:17:20 AM ED T [facility] 039814909 Gastroesophageal reflux disease without esophagitis Gastroesophageal Reflux Disease without Esophagitis Problem 09/24/2019 12:00:00 AM ED [place] HILDA ([facility]) 887877303 Gastroesophageal reflux disease without esophagitis Gastroesophageal Reflux Disease without Esophagitis Problem 09/24/2019 12:00:00 AM ED [place] HILDA ([facility]) 095429604 Gastroesophageal reflux disease without esophagitis Gastroesophageal Reflux Disease without Esophagitis Problem 09/24/2019 12:00:00 AM ED [place] HILDA ([facility]) [id number] Gastroesophageal reflux disease without esophagitis Gastroesophageal Reflux Disease without Esophagitis Problem 09/24/2019 12:00:00 AM ED Ludmila STEVENS ([facility]) 880702534 Gastroesophageal reflux disease without esophagitis Gastroesophageal Reflux Disease without Esophagitis Problem 09/24/2019 12:00:00 AM ED Ludmila STEVENS ([facility]) 120208889 Gastroesophageal reflux disease without esophagitis Gastroesophageal Reflux Disease without Esophagitis Problem 09/24/2019 12:00:00 AM ED Ludmila STEVENS ([facility]) 277385863 Gastroesophageal reflux disease without esophagitis Gastroesophageal Reflux Disease without Esophagitis Problem 09/24/2019 12:00:00 AM ED [place] HILDA ([facility]) 539746306 Gastroesophageal reflux disease without esophagitis Gastroesophageal Reflux Disease without Esophagitis Problem 09/24/2019 12:00:00 AM ED [place] HILDA ([facility]) 055465079 Gastroesophageal reflux disease without esophagitis Gastroesophageal Reflux Disease without Esophagitis Problem 09/24/2019 12:00:00 AM ED Ludmila STEVENS ([facility]) 968035613 Finding of esophagus Finding of Esophagus Problem 09/24/2019 12:00:00 AM EDLudmila STEVENS ([facility]) 953898448 Gastroesophageal reflux disease without esophagitis Gastroesophageal Reflux Disease without Esophagitis Problem 09/24/2019 12:00:00 AM ED [place] HILDA ([facility]) 234580594 Gastroesophageal reflux disease without esophagitis Gastroesophageal Reflux Disease without Esophagitis Problem 09/24/2019 12:00:00 AM ED Lud[place]ila STEVENS ([facility]) 694754561 Gastroesophageal reflux disease without esophagitis Gastroesophageal Reflux Disease without Esophagitis Problem 09/24/2019 12:00:00 AM ED [place] STEVENS ([facility]) 458510002 Gastroesophageal reflux disease without esophagitis Gastroesophageal Reflux Disease without Esophagitis Problem 09/24/2019 12:00:00 AM ED T [facility] ([facility]) 721018697 Gastroesophageal reflux disease without esophagitis Gastroesophageal Reflux Disease without Esophagitis Problem 09/24/2019 12:00:00 AM ED T [facility] ([facility]) [id number] Gastroesophageal reflux disease without esophagitis Gastroesophageal Reflux Disease without Esophagitis Problem 09/24/2019 12:00:00 AM ED T [facility] ([facility]) 974044112 Finding of esophagus Finding of Esophagus Problem 09/24/2019 12:00:00 AM EDT [place] ([facility]) F17.210 Nicotine dependence, cigarettes, uncompl icated Nicotine dependence, cigarettes, uncomplicated 09/10/2019 10:28:25 AM EDT [facility] 309.28 Adjustment disorder with mixed emotional features Adjustment disorder with mixed emotional features 09/10/2019 10:28:25 AM EDT [facility] 300.01 C/O - panic attack C/O - panic attack 0 10:28:25 AM EDT [facility] V70.0 Encounter for general adult medical exam ination with abnormal findings Encounter for general adult medical examination with abnormal findings 09/10/2019 10:28:25 AM EDT [facility] [id number] Panic disorder Panic Disorder Problem 09/10/2019 12:00:00 AM EDT - 12/29/2019 12:00:00 AM EVE STEVENS ([facility]) [id number] Procedure by method Procedure by Method Problem 0 09/10/2019 12:00:00 AM EDT - 12/11/2019 12:00:00 AM EST [place] ([facility]) 279501281 Panic disorder Panic Disorder Problem 09/10/2019 12:00:00 AM EDT - 12/29/2019 12:00:00 AM EST [place] ([facility]) [id number] Procedure by method Procedure by Method Problem 0 09/10/2019 12:00:00 AM EDT - 12/11/2019 12:00:00 AM EST [place] ([facility]) [id number] Panic disorder Panic Disorder Problem 09/10/2019 12:00:00 AM EDT - 12/29/2019 12:00:00 AM EST [facility] ([facility]) [id number] Procedure by method Procedure by Method Problem 0 09/10/2019 12:00:00 AM EDT - 12/11/2019 12:00:00 AM EST [facility] ([facility]) 151378038 Panic disorder Panic Disorder Problem 09/10/2019 12:00:00 AM EDT - 12/29/2019 12:00:00 AM EST [place] ([facility]) [id number] Procedure by method Procedure by Method Problem 0 09/10/2019 12:00:00 AM EDT - 12/11/2019 12:00:00 AM EST [facility] ([facility]) 095632500 Panic disorder Panic Disorder Problem 09/10/2019 12:00:00 AM EDT - 12/29/2019 12:00:00 AM EST [facility] ([facility]) [id number] Procedure by method Procedure by Method Problem 0 09/10/2019 12:00:00 AM EDT - 12/11/2019 12:00:00 AM EST [facility] ([facility]) 185356116 Panic disorder Panic Disorder Problem 09/10/2019 12:00: 00 AM EDT [facility] ([facility]) 983076635 Procedure by method Procedure by Method Problem 0 09/10/2019 12:00:00 AM EDT - 12/11/2019 12:00:00 AM EST [facility] ([facility]) 312020620 Adjustment disorder with mixed anxiety a nd depressed mood Adjustment Disorder with Mixed Anxiety and Depressed Mood Problem 12:00:00 AM EDT [facility] ([facility]) 608544649 Panic disorder Panic Disorder Problem 09/10/2019 12:00: 00 AM EDT H[facility] ([facility]) 542371015 Procedure by method Procedure by Method Problem 0 09/10/2019 12:00:00 AM EDT - 12/11/2019 12:00:00 AM EST [facility] ([facility]) 220603371 Adjustment disorder with mixed anxiety a nd depressed mood Adjustment Disorder with Mixed Anxiety and Depressed Mood Problem 12:00:00 AM EDT [facility] ([facility]) 729587042 Panic disorder Panic Disorder Problem 09/10/2019 12:00: 00 AM EDT [facility] ([facility]) [id number] Procedure by method Procedure by Method Problem 0 09/10/2019 12:00:00 AM EDT - 12/11/2019 12:00:00 AM EST [facility] ([facility]) 560032631 Adjustment disorder with mixed anxiety a nd depressed mood Adjustment Disorder with Mixed Anxiety and Depressed Mood Problem 12:00:00 AM EDT [facility] ([facility]) 725609899 Panic disorder Panic Disorder Problem 09/10/2019 12:00: 00 AM EDT [facility]IL[facility] ([facility]) 259859240 Procedure by method Procedure by Method Problem 0 09/10/2019 12:00:00 AM EDT - 12/11/2019 12:00:00 AM EST [facility] ([facility]) 983733395 Adjustment disorder with mixed anxiety a nd depressed mood Adjustment Disorder with Mixed Anxiety and Depressed Mood Problem 12:00:00 AM EDT [facility] ([facility]) 885397770 Panic disorder Panic Disorder Problem 09/10/2019 12:00: 00 AM EDT [facility] ([facility]) [id number] Procedure by method Procedure by Method Problem 0 09/10/2019 12:00:00 AM EDT [facility] ([facility]) [id number] Adjustment disorder with mixed anxiety a nd depressed mood Adjustment Disorder with Mixed Anxiety and Depressed Mood Problem 12:00:00 AM EDT [facility] ([facility]) 676306923 Panic disorder Panic Disorder Problem 09/10/2019 12:00:00 AM EDT - 12/29/2019 12:00:00 AM EST [facility] ([facility]) [id number] Procedure by method Procedure by Method Problem 0 09/10/2019 12:00:00 AM EDT - 12/11/2019 12:00:00 AM EST [place] ([facility]) [id number] Panic disorder Panic Disorder Problem 09/10/2019 12:00:00 AM EDT - 12/29/2019 12:00:00 AM EST [place] ([facility]) [id number] Procedure by method Procedure by Method Problem 0 09/10/2019 12:00:00 AM EDT - 12/11/2019 12:00:00 AM EST [place] ([facility]) [id number] Panic disorder Panic Disorder Problem 09/10/2019 12:00:00 AM EDT - 12/29/2019 12:00:00 AM EST [place] ([facility]) [id number] Procedure by method Procedure by Method Problem 0 09/10/2019 12:00:00 AM EDT - 12/11/2019 12:00:00 AM EST [facility]DA ([facility] er) [id number] Panic disorder Panic Disorder Problem 09/10/2019 12:00:00 AM EDT - 12/29/2019 12:00:00 AM EST HILDA ([facility] er) [id number] Procedure by method Procedure by Method Problem 0 09/10/2019 12:00:00 AM EDT - 12/11/2019 12:00:00 AM EST HILDA ([facility] er) [id number] Panic disorder Panic Disorder Problem 09/10/2019 12:00:00 AM EDT - 12/29/2019 12:00:00 AM EST HILDA ([facility] er) [id number] Procedure by method Procedure by Method Problem 0 09/10/2019 12:00:00 AM EDT - 12/11/2019 12:00:00 AM EST HILDA ([facility] er) [id number] Panic disorder Panic Disorder Problem 09/10/2019 12:00:00 AM EDT - 12/29/2019 12:00:00 AM EST HILDA ([facility] er) [id number] Procedure by method Procedure by Method Problem 0 09/10/2019 12:00:00 AM EDT - 12/11/2019 12:00:00 AM EST HILDA ([facility] er) [id number] Panic disorder Panic Disorder Problem 09/10/2019 12:00: 00 AM EDT HILDA ([facility]) [id number] Procedure by method Procedure by Method Problem 0 09/10/2019 12:00:00 AM EDT HILDA ([facility] er) [id number] Adjustment disorder with mixed anxiety a nd depressed mood Adjustment Disorder with Mixed Anxiety and Depressed Mood Problem 020 12:00:00 AM EDT HILDA ([facility]) Surgeries/Procedures Procedure Description Date Indications Data Source(s) CV STRS TST XERS&/OR RX CONT ECG PHYS SI&R 01/08/2020 12:00:00 AM EST MEDENT ([facility]) ECHO TTHRC R-T 2D W/WOM-MODE COMPL SPEC&COLR DOP 01/07 12:00:00 AM EST MEDENT ([facility]) ECG ROUTINE ECG W/LEAST 12 LDS W/I&R 01/07/2020 12:00: 00 AM EST MEDENT ([facility]) Results ID Date Data Source [id number] 03/23/2020 12:00:00 AM EST [facility] Name Value Range Interpretation Code Description Data Ellie rce(s) Supporting Document(s) SARS-CoV2 Rapid Antigen Negative [facility] and reported by [facility]. ID Date Data Source [id number] 01/09/2020 03:51:00 PM EST HILDA ([facility]) Name Value Range Interpretation Code Description Data Ellie rce(s) Supporting Document(s) C reactive protein quantitativ < 0.30 0.00-0.30 normal C Reactive Protein Quantitativ [facility]) ID Date Data Source [id number] 01/09/2020 03:51:00 PM EST HILDA ([facility]) Name Value Range Interpretation Code Description Data Ellie rce(s) Supporting Document(s) triglycerides level 314 mg/dL <150 Above high normal Triglycer ides Level HILDA ([facility]) HDL cholesterol 38 mg/dL >40 Below low normal HDL Cholestero l [place] ([facility]) Cholesterol in LDL [Mass/volume] in Serum or Plasma 177 mg/dL <100 Above high normal LDL Cholesterol HILDA ([facility]) cholesterol level 278 mg/dL <200 Above high normal Cholesterol Level [place] ([facility]) non-HDL-C 240 mg/dL normal Non-hdl-c HILDA ([facility]) cholesterol risk ratio <5 Above high normal Choles terol Risk Ratio HILDA ([facility]) ID Date Data Source [id number] 01/09/2020 03:51:00 PM EST HILDA ([facility]) Name Value Range Interpretation Code Description Data Ellie rce(s) Supporting Document(s) C reactive protein quantitativ < 0.30 0.00-0.30 normal C Reactive Protein Quantitativ [place] ([facility]) ID Date Data Source [id number] 01/09/2020 03:51:00 PM EST HILDA ([facility]) Name Value Range Interpretation Code Description Data Ellie rce(s) Supporting Document(s) cholesterol level 278 mg/dL <200 Above high normal Cholesterol Level [place] ([facility]) triglycerides level 314 mg/dL <150 Above high normal Triglycer ides Level [place] ([facility]) Cholesterol in LDL [Mass/volume] in Serum or Plasma 177 mg/dL <100 Above high normal LDL Cholesterol HILDA ([facility]) non-HDL-C 240 mg/dL normal Non-hdl-c [place] ([facility]) cholesterol risk ratio <5 Above high normal Choles terol Risk Ratio [place] ([facility]) HDL cholesterol 38 mg/dL >40 Below low normal HDL Cholestero l [place] ([facility]) ID Date Data Source [id number] 01/09/2020 03:51:00 PM EST HILDA ([facility]) Name Value Range Interpretation Code Description Data Ellie rce(s) Supporting Document(s) C reactive protein quantitativ < 0.30 0.00-0.30 normal C Reactive Protein Quantitativ [place] ([facility]) ID Date Data Source [id number] 01/09/2020 03:51:00 PM EST HILDA ([facility]) Name Value Range Interpretation Code Description Data Ellie rce(s) Supporting Document(s) triglycerides level 314 mg/dL <150 Above high normal Triglycer ides Level [place] ([facility]) Cholesterol in LDL [Mass/volume] in Serum or Plasma 177 mg/dL <100 Above high normal LDL Cholesterol [facility] ([facility]) HDL cholesterol 38 mg/dL >40 Below low normal HDL Cholestero l [place] ([facility]) non-HDL-C 240 mg/dL normal Non-hdl-c [place] ([facility]) cholesterol level 278 mg/dL <200 Above high normal Cholesterol Level [place] ([facility]) cholesterol risk ratio <5 Above high normal Choles terol Risk Ratio [place] ([facility]) ID Date Data Source [id number] 01/09/2020 03:51:00 PM EST HILDA ([facility]) Name Value Range Interpretation Code Description Data Ellie rce(s) Supporting Document(s) C reactive protein quantitativ < 0.30 0.00-0.30 normal C Reactive Protein Quantitativ [place] ([facility]) ID Date Data Source [id number] 01/09/2020 03:51:00 PM EST HILDA ([facility]) Name Value Range Interpretation Code Description Data Ellie rce(s) Supporting Document(s) HDL cholesterol 38 mg/dL >40 Below low normal HDL Cholestero l [place] ([facility]) cholesterol level 278 mg/dL <200 Above high normal Cholesterol Level [place] ([facility]) triglycerides level 314 mg/dL <150 Above high normal Triglycer ides Level [place] ([facility]) cholesterol risk ratio <5 Above high normal Choles terol Risk Ratio [place] ([facility]) Cholesterol in LDL [Mass/volume] in Serum or Plasma 177 mg/dL <100 Above high normal LDL Cholesterol [facility] ([facility]) non-HDL-C 240 mg/dL normal Non-hdl-c [place] ([facility]) ID Date Data Source [id number] 01/09/2020 03:51:00 PM EST [place]IL[place] ([facility]) Name Value Range Interpretation Code Description Data Ellie rce(s) Supporting Document(s) C reactive protein quantitativ < 0.30 0.00-0.30 normal C Reactive Protein Quantitativ [place] ([facility]) ID Date Data Source [id number] 01/09/2020 03:51:00 PM EST HILDA ([facility]) Name Value Range Interpretation Code Description Data Ellie rce(s) Supporting Document(s) cholesterol level 278 mg/dL <200 Above high normal Cholesterol Level [place] ([facility]) triglycerides level 314 mg/dL <150 Above high normal Triglycer ides Level [place] ([facility]) Cholesterol in LDL [Mass/volume] in Serum or Plasma 177 mg/dL <100 Above high normal LDL Cholesterol HIL[place] ([facility]) non-HDL-C 240 mg/dL normal Non-hdl-c [place] ([facility]) cholesterol risk ratio <5 Above high normal Choles terol Risk Ratio [place] ([facility]) HDL cholesterol 38 mg/dL >40 Below low normal HDL Cholestero l [place] ([facility]) ID Date Data Source [id number] 01/09/2020 03:51:00 PM EST HILDA ([facility]) Name Value Range Interpretation Code Description Data Ellie rce(s) Supporting Document(s) C reactive protein quantitativ < 0.30 0.00-0.30 normal C Reactive Protein Quantitativ [place] ([facility]) ID Date Data Source [id number] 01/09/2020 03:51:00 PM EST HILDA ([facility]) Name Value Range Interpretation Code Description Data Ellie rce(s) Supporting Document(s) triglycerides level 314 mg/dL <150 Above high normal Triglycer ides Level [place] ([facility]) cholesterol level 278 mg/dL <200 Above high normal Cholesterol Level [place] ([facility]) HDL cholesterol 38 mg/dL >40 Below low normal HDL Cholestero l [place] ([facility]) non-HDL-C 240 mg/dL normal Non-hdl-c [place] ([facility]) Cholesterol in LDL [Mass/volume] in Serum or Plasma 177 mg/dL <100 Above high normal LDL Cholesterol HILDA ([facility]) cholesterol risk ratio <5 Above high normal Choles terol Risk Ratio [place] ([facility]) ID Date Data Source [id number] 01/09/2020 03:51:00 PM EST [place]IL[place] ([facility]) Name Value Range Interpretation Code Description Data Ellie rce(s) Supporting Document(s) C reactive protein quantitativ < 0.30 0.00-0.30 normal C Reactive Protein Quantitativ [place] ([facility]) ID Date Data Source [id number] 01/09/2020 03:51:00 PM EST HIL[place] ([facility]) Name Value Range Interpretation Code Description Data Ellie rce(s) Supporting Document(s) triglycerides level 314 mg/dL <150 Above high normal Triglycer ides Level [place] ([facility]) HDL cholesterol 38 mg/dL >40 Below low normal HDL Cholestero l [place] ([facility]) cholesterol level 278 mg/dL <200 Above high normal Cholesterol Level [place] ([facility]) cholesterol risk ratio <5 Above high normal Choles terol Risk Ratio [place] ([facility]) non-HDL-C 240 mg/dL normal Non-hdl-c [place] ([facility]) Cholesterol in LDL [Mass/volume] in Serum or Plasma 177 mg/dL <100 Above high normal LDL Cholesterol HIL[place] ([facility]) ID Date Data Source [id number] 01/09/2020 03:51:00 PM EST HILDA ([facility]) Name Value Range Interpretation Code Description Data Ellie rce(s) Supporting Document(s) C reactive protein quantitativ < 0.30 0.00-0.30 normal C Reactive Protein Quantitativ [place] ([facility]) ID Date Data Source [id number] 01/09/2020 03:51:00 PM EST HILDA ([facility]) Name Value Range Interpretation Code Description Data Ellie rce(s) Supporting Document(s) cholesterol level 278 mg/dL <200 Above high normal Cholesterol Level [place] ([facility]) triglycerides level 314 mg/dL <150 Above high normal Triglycer ides Level [place] ([facility]) cholesterol risk ratio <5 Above high normal Choles terol Risk Ratio [place] ([facility]) non-HDL-C 240 mg/dL normal Non-hdl-c [place] ([facility]) HDL cholesterol 38 mg/dL >40 Below low normal HDL Cholestero l [place] ([facility]) Cholesterol in LDL [Mass/volume] in Serum or Plasma 177 mg/dL <100 Above high normal LDL Cholesterol HILDA ([facility]) ID Date Data Source [id number] 01/09/2020 03:51:00 PM EST HILDA ([facility]) Name Value Range Interpretation Code Description Data Ellie rce(s) Supporting Document(s) C reactive protein quantitativ < 0.30 0.00-0.30 normal C Reactive Protein Quantitativ [place] ([facility]) ID Date Data Source [id number] 01/09/2020 03:51:00 PM EST [place]IL[place] ([facility]) Name Value Range Interpretation Code Description Data Ellie rce(s) Supporting Document(s) HDL cholesterol 38 mg/dL >40 Below low normal HDL Cholestero l [place] ([facility]) triglycerides level 314 mg/dL <150 Above high normal Triglycer ides Level [place] ([facility]) cholesterol level 278 mg/dL <200 Above high normal Cholesterol Level [place] ([facility]) non-HDL-C 240 mg/dL normal Non-hdl-c [place] ([facility]) cholesterol risk ratio <5 Above high normal Choles terol Risk Ratio [place] ([facility]) Cholesterol in LDL [Mass/volume] in Serum or Plasma 177 mg/dL <100 Above high normal LDL Cholesterol [facility] ([facility]) ID Date Data Source [id number] 01/09/2020 03:51:00 PM EST HIL[place] ([facility]) Name Value Range Interpretation Code Description Data Ellie rce(s) Supporting Document(s) C reactive protein quantitativ < 0.30 0.00-0.30 normal C Reactive Protein Quantitativ [place] ([facility]) ID Date Data Source [id number] 01/09/2020 03:51:00 PM EST HILDA ([facility]) Name Value Range Interpretation Code Description Data Ellie rce(s) Supporting Document(s) triglycerides level 314 mg/dL <150 Above high normal Triglycer ides Level [place] ([facility]) cholesterol risk ratio <5 Above high normal Choles terol Risk Ratio [place] ([facility]) Cholesterol in LDL [Mass/volume] in Serum or Plasma 177 mg/dL <100 Above high normal LDL Cholesterol HIL[place] ([facility]) HDL cholesterol 38 mg/dL >40 Below low normal HDL Cholestero l [place] ([facility]) cholesterol level 278 mg/dL <200 Above high normal Cholesterol Level [place] ([facility]) non-HDL-C 240 mg/dL normal Non-hdl-c [place] ([facility]) ID Date Data Source [id number] 01/09/2020 03:51:00 PM EST [facility] Name Value Range Interpretation Code Description Data Ellie rce(s) Supporting Document(s) C reactive protein [Mass/volume] in Serum or Plasma by High sensitivity method Laboratory test result 0.00-0.30 MEDENT ([facility]) ID Date Data Source [id number] 01/09/2020 03:51:00 PM EST MEDENT ([facility]) Name Value Range Interpretation Code Description Data Ellie rce(s) Supporting Document(s) Triglycerides Level 314 mg/dL MEDENT ([facility]) HDL Cholesterol 38 mg/dL MED[facility] ([facility]) Cholesterol Level 278 mg/dL MED[facility] ([facility]) Cholesterol Risk Ratio 7.315 MED[facility] ([facility]) LDL Cholesterol 177 mg/dL [facility] ([facility]) Non-HDL-C 240 mg/dL [facility] ([facility]) ID Date Data Source [id number] 12/17/2019 04:48:00 PM EST MEDENT ([facility]) Name Value Range Interpretation Code Description Data Ellie rce(s) Supporting Document(s) White Blood Count 8.2 4.0-10.0 [facility] Red Blood Count 5.36 4.00-5.40 MED[facility] ([facility]) Hemoglobin 14.5 MED[facility] ([facility]) Platelets 248 172-450 MEDENT ([facility]) Hematocrit 45.1 MED[facility] ([facility]) ID Date Data Source [id number] 12/17/2019 04:48:00 PM EST [facility] ([facility] Name Value Range Interpretation Code Description Data Ellie rce(s) Supporting Document(s) Magnesium Level 2.0 1.8-2.4 MED[facility] ([facility]io [facility]) Thyroid Stimulating Hormone 1.360 [place] ([facility]) Free T4 0.73 MED[facility] ([facility]) ID Date Data Source [id number] 12/17/2019 04:48:00 PM EST [facility] ([facility] Name Value Range Interpretation Code Description Data Lelie rce(s) Supporting Document(s) Alanine aminotransferase [Enzymatic activity/volume] in Serum or Pl asma 39 MED[facility] ([facility]) Albumin [Mass/volume] in Serum or Plasma 3.7 [facility] ([facility]) Calcium [Mass/volume] in Serum or Plasma 8.9 [facility] ([facility]) Carbon dioxide, total [Moles/volume] in Serum or Plasma 30 [facility] ([facility]) Chloride [Moles/volume] in Serum or Plasma 105 [facility] ([facility]) Alkaline phosphatase [Enzymatic activity/volume] in Serum or Plasma 8 0 [facility] ([facility]) Protein [Mass/volume] in Serum or Plasma 7.1 [facility] ([facility]) Potassium [Moles/volume] in Serum or Plasma 4.0 [facility] ([facility]) Sodium 142 [facility] ([facility]) Urea nitrogen [Mass/volume] in Serum or Plasma 20 [facility] ([facility]) Glucose 83 70-100 [facility] Aspartate aminotransferase [Enzymatic activity/volume] in Serum or Plasma 24 [facility] ([facility]) Creatinine For GFR 1.16 [facility] (Car [facility]) ID Date Data Source [id number] 12/16/2019 02:05:00 PM EST HILDA ([facility]) Name Value Range Interpretation Code Description Data Ellie rce(s) Supporting Document(s) ID Date Data Source [id number] 12/16/2019 02:05:00 PM EST [place] ([facility]) Name Value Range Interpretation Code Description Data Ellie rce(s) Supporting Document(s) ID Date Data Source [id number] 12/16/2019 02:05:00 PM EST [place] ([facility]) Name Value Range Interpretation Code Description Data Ellie rce(s) Supporting Document(s) ID Date Data Source [id number] 12/16/2019 02:05:00 PM EST [place]IL[place] ([facility]) Name Value Range Interpretation Code Description Data Ellie rce(s) Supporting Document(s) ID Date Data Source [id number] 12/16/2019 02:05:00 PM EST [place]IL[place] ([facility]) Name Value Range Interpretation Code Description Data Ellie rce(s) Supporting Document(s) ID Date Data Source [id number] 12/16/2019 02:05:00 PM EST [place]IL[place] ([facility]) Name Value Range Interpretation Code Description Data Ellie rce(s) Supporting Document(s) ID Date Data Source [id number] 12/16/2019 02:05:00 PM EST [place]IL[place] ([facility]) Name Value Range Interpretation Code Description Data Ellie rce(s) Supporting Document(s) ID Date Data Source [id number] 12/16/2019 02:05:00 PM EST [place]IL[place] ([facility]) Name Value Range Interpretation Code Description Data Ellie rce(s) Supporting Document(s) ID Date Data Source [id number] 12/16/2019 02:05:00 PM EST HILDA ([facility]) Name Value Range Interpretation Code Description Data Ellie rce(s) Supporting Document(s) ID Date Data Source [id number] 12/16/2019 02:05:00 PM EST HILDA ([facility]) Name Value Range Interpretation Code Description Data Ellie rce(s) Supporting Document(s) ID Date Data Source [id number] 12/16/2019 02:05:00 PM EST HILDA ([facility]) Name Value Range Interpretation Code Description Data Ellie rce(s) Supporting Document(s) ID Date Data Source [id number] 12/16/2019 02:05:00 PM EST HILDA ([facility]) Name Value Range Interpretation Code Description Data Ellie rce(s) Supporting Document(s) ID Date Data Source [id number] 12/16/2019 02:05:00 PM EST HILDA [facility]) Name Value Range Interpretation Code Description Data Ellie rce(s) Supporting Document(s) ID Date Data Source [id number] 12/16/2019 02:05:00 PM EST HILDA ([facility]) Name Value Range Interpretation Code Description Data Ellie rce(s) Supporting Document(s) ID Date Data Source [id number] 12/11/2019 04:30:00 AM EST HILDA ([facility]) Name Value Range Interpretation Code Description Data Ellie rce(s) Supporting Document(s) SARS-CoV-2 (COVID-19) RNA [Presence] in Respiratory specimen by HITESH with probe detection not detected not detected normal Sars Cov 2 RNA [facility]) ID Date Data Source [id number] [facility]2019 [facility] Interpretation Code Description Data Ellie rce(s) Supporting Document(s) SARS-CoV-2 (COVID-19) RNA [Presence] in Respiratory specimen by HITESH with probe detection not detected not detected normal Sars Cov 2 RNA [facility]) ID Date Data Source [id number] 12/11/2019 04[facility]30[facility] Name Value Range Interpretation Code Description Data Ellie rce(s) Supporting Document(s) SARS-CoV-2 (COVID-19) RNA [Presence] in Respiratory specimen by HITESH with probe detection not detected not detected normal Sars Cov 2 RNA [facility]) ID Date Data Source [id number] 12/11/2019 04:30:00 AM EST [facility]) Name Value Range Interpretation Code Description Data Ellie rce(s) Supporting Document(s) SARS-CoV-2 (COVID-19) RNA [Presence] in Respiratory specimen by HITESH with probe detection not detected not detected normal Sars Cov 2 RNA [facility]) ID Date Data Source [id number] 12/11/2019 04:30:00 AM EST [place] ([facility]) Name Value Range Interpretation Code Description Data Ellie rce(s) Supporting Document(s) SARS-CoV-2 (COVID-19) RNA [Presence] in Respiratory specimen by HITESH with probe detection not detected not detected normal Sars Cov 2 RNA [facility]) ID Date Data Source [id number] 12/11/2019 04:30:00 AM EST [facility]) Name Value Range Interpretation Code Description Data Ellie rce(s) Supporting Document(s) SARS-CoV-2 (COVID-19) RNA [Presence] in Respiratory specimen by HITESH with probe detection not detected not detected normal Sars Cov 2 RNA [facility]) ID Date Data Source [id number] 12/11/2019 04:30:00 AM EST [facility]) Name Value Range Interpretation Code Description Data Ellie rce(s) Supporting Document(s) SARS-CoV-2 (COVID-19) RNA [Presence] in Respiratory specimen by HITESH with probe detection not detected not detected normal Sars Cov 2 RNA [facility]) ID Date Data Source [id number] 12/11/2019 04:30:00 AM EST [facility]) Name Value Range Interpretation Code Description Data Ellie rce(s) Supporting Document(s) SARS-CoV-2 (COVID-19) RNA [Presence] in Respiratory specimen by HITESH with probe detection not detected not detected normal Sars Cov 2 RNA [facility]) ID Date Data Source [id number] 12/11/2019 04:30:00 AM EST [facility]) Name Value Range Interpretation Code Description Data Ellie rce(s) Supporting Document(s) SARS-CoV-2 (COVID-19) RNA [Presence] in Respiratory specimen by HITESH with probe detection not detected not detected normal Sars Cov 2 RNA [place] ([facility]) ID Date Data Source [id number] 12/11/2019 04:30:00 AM EST [place] ([facility]) Name Value Range Interpretation Code Description Data Ellie rce(s) Supporting Document(s) SARS-CoV-2 (COVID-19) RNA [Presence] in Respiratory specimen by HITESH with probe detection not detected not detected normal Sars Cov 2 RNA [place] ([facility]) ID Date Data Source [id number] 12/11/2019 04:30:00 AM EST [facility] ([facility]) Name Value Range Interpretation Code Description Data Ellie rce(s) Supporting Document(s) SARS coronavirus 2 RNA [Presence] in Res piratory specimen by HITESH with probe detection not detected not detected normal Sars Cov 2 RNA [facility]) ID Date Data Source [id number] 12/11/2019 04:30:00 [facility] Name Value Range Interpretation Code Description Data Ellie rce(s) Supporting Document(s) SARS coronavirus 2 RNA [Presence] in Res piratory specimen by HITESH with probe detection not detected not detected normal Sars Cov 2 RNA [facility]) ID Date Data Source [id number] 12/11/2019 04:30:00 AM EST HILDA ([facility]) Name Value Range Interpretation Code Description Data Ellie rce(s) Supporting Document(s) SARS coronavirus 2 RNA [Presence] in Res piratory specimen by HITESH with probe detection not detected not detected normal Sars Cov 2 RNA [place] ([facility]) ID Date Data Source [id number] 12/11/2019 04:30:00 AM [facility] Name Value Range Interpretation Code Description Data Ellie rce(s) Supporting Document(s) SARS coronavirus 2 RNA [Presence] in Res piratory specimen by HITESH with probe detection not detected not detected normal Sars Cov 2 RNA [place] ([facility]) ID Date Data Source [id number] 12/11/2019 04:30:00 AM EST [facility] Name Value Range Interpretation Code Description Data Ellie rce(s) Supporting Document(s) SARS-COV-2 RNA RESP QL HITESH+PROBE [facility] This lab was ordered by [facility] and reported by [facility]. ID Date Data Source [id number] 10/28/2019 05:05:00 PM EDT [facility] ([facility]) Name Value Range Interpretation Code Description Data Ellie rce(s) Supporting Document(s) Troponin Laboratory test result [facility]) ID Date Data Source [id number] 10/28/2019 05:05:00 PM EDT [facility] ([facility]) Name Value Range Interpretation Code Description Data Ellie rce(s) Supporting Document(s) Creatine kinase [Enzymatic activity/volume] in Serum or Plasma 359 [facility] ([facility]) CPK-MB Laboratory test result [facility] ([facility]) ID Date Data Source [id number] 10/28/2019 03:32:56 PM EDT [facility] Measurements & CalculationsHeight: 72 inches (6 [...] 2019 3:36 PMPatient History Medical History:Anxiety/panicInsomniaSurgical History:Family History:LZW-rtvfhaSpovwxs-kntpsewVbwpqu/Personal History:Smoking History:Patient has never smoked. Chief Complaintfollow-up [...] jaw, sadness/scared/depressed. Pt also was seen in [facility] ER last night/this morning for panic attack. [...] during this visit, including review of any lalr-gyd-dnzqesk medications, herbal therapies, and/or supplements.Allergy ReviewAllergy List [...] is? ExcellentAssessment & Plan Problems:Added: Chronic insomnia (KFX47-I79.04) Assessment: Instructions: As above.Chest pain, unspecified (QRF36-S90.9) Assessment: Instructions: Referral to cardiology for evaluation. Unlikely to be cardiac in nature with frequent labs/EKG.Bradycardia (ICD-427.89) (ICD10- R00.1) Assessment: Instructions: Likely secondary to routine fitness levels. However, given brother's syncopal episodes and loop recorder, will refer to cardiology for evaluation.Assessed:GENERALIZED ANXIETY DISORDER (ICD- 300.02) (DVT87-Q44.1) Assessment: Instructions: Continue current Lexapro daily and [...] HYDROXYZINE HCL 10 MG ORAL TABLET Qty: [id number] Refills: 30[Tablet] To: HYDROXYZINE HCL 10 MG ORAL TABLET-Take 1 tablet po q 6 hrs prnAllergies:No Known Allergies (updated 10/28/2019) Orders:Cardiology Consult [CPT-67028] Adult - Ofc Vst, EST, Level III [CPT- 65573] Follow-Up Return to clinic: in 2 months for follow upAdditional Follow- Up: cardio referral, anxietyClinical Visit Summary CompletedMedications:HYDROXYZINE HCL 25 MG ORAL TABLET (HYDROXYZINE HCL) Take 1- 2 tablets by mouth at bedtime prn insomnia #60[Tablet] x 1 Route:ORAL Entered and Authorized by: Terry AGUAYO Method used: Electronically to [facility]* (retail) [id number] [address] [place] [address] Note to Pharmacy: Route: ORAL; Indications: CHRONIC INSOMNIA;GENERALIZED ANXIETY DISORDER RxID: [id number] signed by Terry AGUAYO on 11/13/2019 at 8:30 AM Name Value Range Interpretation Code Description Data Ellie rce(s) Supporting Document(s) ID Date Data Source [id number] 10/28/2019 02:21:00 AM EDT [facility] Name Value Range Interpretation Code Description Data Ellie rce(s) Supporting Document(s) HCT 45.6 % 42.0-52.0 N [facility] HGB 14.9 g/dL 13.5-17.5 N [facility] MCH 32.7 G/DL pg 32.0-36.5 N [facility] MCHC 27.6 PG % 27.0-33.0 N [facility] PLATELETS 259 10 10*3/mm3 150-450 N [facility] RBC 5.40 10 10*6/mm3 4.30-6.10 N [facility] RDW 13.2 % 11.5-14.5 N [facility] WBC TOTAL 10.0 4.0-10.0 N [facility] ID Date Data Source [id number] 10/28/2019 02:21:00 AM EDT [facility] Name Value Range Interpretation Code Description Data [facility] rce(s) Supporting Document(s) BG FASTING 102 mg/dL 70-100 H [facility] ID Date Data Source [id number] 09/30/2019 01:44:56 PM EDT [facility] Measurements & CalculationsHeight: 72 inches (6 [...] Present Illness (HPI)28 yo male presents for [facility] ER f/u. Pt states he has been having terrible migraines for a few days and yesterday woke up with heart racing, feeling like "brain on fire" and chest tightness. Went to [facility] ED last night and was released this [...] during this visit, including review of any zcyx-vos-qrpwovr medications, herbal therapies, and/or supplements.Allergy ReviewAllergy List [...] Problems:Assessed:Adjustment disorder with mixed emotional features (ICD-309.28) (AOY88-T49.23) Assessment: Instructions: Continue Lexapro daily. Hydroxyzine may be taken up to 2 tablets every 6 hrs daily as needed, with last dose at bedtime for insomnia. Ativan for severe panic, take 1/2 tablet to start and if no relief after 30 minutes then take second 1/2. New Rx sent for short supply.C/O - panic attack (ICD-300.01) (RSV18-K73.0) Assessment: Instructions: As above.Gastro-esophageal reflux disease without esophagitis (ICD-530.81) (OKL48-T69.9) Assessment: Instructions: Continue omeprazole as prescribed. Hold [...] - Ofc Vst, EST, Level III [CPT -98348] Follow-Up Return to clinic: as needed, as scheduled Clinical Visit Summary Completed Name Value Range Interpretation Code Description Data Ellie rce(s) Supporting Document(s) ID Date Data Source [id number] 09/30/2019 03:16:00 AM EDT [facility] Name Value Range Interpretation Code Description Data Ellie rce(s) Supporting Document(s) HCT 43.9 % 42.0-52.0 [facility] HGB 15.1 g/dL 13.5-17.5 [facility] MCH 34.4 G/DL pg 32.0-36.5 [facility] MCHC 28.9 PG % 27.0-33.0 [facility] PLATELETS 263 10 10*3/mm3 150-450 N [facility] RBC 5.22 10 10*6/mm3 4.30-6.10 [facility] RDW 13.0 % 11.5-14.5 [facility] WBC TOTAL 8.2 4.0-10.0 [facility] ID Date Data Source [id number] 09/30/2019 03:16:00 AM EDT [facility] Name Value Range Interpretation Code Description Data Ellie rce(s) Supporting Document(s) BG FASTING 100 mg/dL 70-100 N [facility] T4, FREE 1.04 ng/dL 0.76-1.46 N [facility] TSH 2.080 microintl units/mL 0.358-3.740 N [facility] ID Date Data Source [id number] 09/24/2019 10:48:08 AM EDT [facility] Measurements & CalculationsHeight: 72 inches (6 [...] during this visit, including review of any dcrt-dra-okepqfe medications, herbal therapies, and/or supplements.Allergy ReviewAllergy List [...] Gastro-esophageal reflux disease without esophagitis (ICD- 530.81) (AJY95-K67.9) Assessment: Instructions: Start omeprazole as prescribed. Low acid diet reviewed.Assessed:Adjustment disorder with mixed emotional features (ICD-309.28) (NQO35-W19.23) Assessment: Instructions: Continue Lexapro daily, hydroxyzine as needed during the daytime and certainly at night for evening anxiety. Ativan only for severe panic. Pending referral for counseling services.C/O - panic attack (ICD-300.01) (EAZ67-H89.0) Assessment: Instructions: Improving and less frequent.Removed:Nicotine dependence, cigarettes, uncomplicated (JAP04-P27.210)Patient Instructions/Care Plan: Adjustment disorder with mixed emotional [...] - Ofc Vst, EST, Level III [CPT- 64444] Follow-Up Return to clinic: in 4 weeks for follow upAdditional Follow-Up: med checkClinical Visit Summary CompletedMedications:OMEPRAZOLE 20 MG ORAL TABLET DELAYED RELEASE (OMEPRAZOLE) Take 1 tablet po QAM on an empty stomach #30[Tablet] x 1 Route:ORAL Entered and Authorized by: Terry AGUAYO Method used: Electronically to [facility]* (retail) [address] [place] [address] Note to Pharmacy: Route: ORAL; Indications: GASTRO-ESOPHAGEAL REFLUX DISEASE WITHOUT ESOPHAGITIS RxID: [id number] signed by Terry AGUAYO on 09/30/2019 at 11:07 AM Name Value Range Interpretation Code Description Data Ellie rce(s) Supporting Document(s) ID Date Data Source [id number] 09/10/2019 09:45:38 AM EDT [facility] Measurements & CalculationsHeight: 72 inches 182.88 [...] or Preferred Language: EnglishFamily and Home Address: [address] [place] [address] Dr Tran [address] [place] [address] What is your housing situation today? I [...] really needed? Denies Insecurity: food, utilities, clothing, child's nurse, phone, legal services, otherWithin the past year [...] childhood. Pt states he has been to [facility] ER 3 times since the 09/06/2019 for panic attacks. No reports available due to [facility] computer downtime. Pt states they did EKG, [...] AGUAYO, September 10, 2019 10:08 AMTransitions of [facility] InboundProblem ReviewProblem List was reviewed and/or updated during this visit.Medication Rec onciliation & ReviewMedication List was reviewed and/or updated during this visit, including review of any wont-dpn-zwahijm medications, herbal therapies, and/or supplements.Allergy ReviewAllergy List [...] adult medical examination with abnormal findings (ICD-V70.0) (DHW61-C71.01) Assessment: Instructions: Recommend annual medical appointments. Recommend [...] weeks for recheck.C/O - panic attack (ICD-300.01) (SEG29-V04.0) Assessment: Instructions: As above.Nicotine dependence, cigarettes, uncomplicated [...] Known Allergies (updated 09/10/2019) Orders:Mental Health Consult [CPT-17430] Preventive, New, (18-39) [CPT-23125] Follow-Up Return to clinic: in 2 weeks for follow upAdditional Follow-Up: mood recheckClinical Visit Summary Completed Name Value Range Interpretation Code Description Data Ellie rce(s) Supporting Document(s) Procedure Social History Code Duration Value Status Description Data Source(s ) Smoking 01/07/2020 12:00:00 AM EST Patient is a former smoker completed Patient is a former smoker [facility] ([facility]) Vital Signs ID Date Data Source UNK Name Value Range Interpretation Code Description Data Source(s) Body weight 3596.8 [oz_av] 3596.8 [oz_av] ATHEN A ([facility]) Systolic blood pressure 145 mm[Hg] 145 mm[Hg] A [facility] ([facility]) Systolic blood pressure 127 mm[Hg] 127 mm[Hg] A [facility] ([facility]) Body mass index (BMI) [Ratio] 30.5 kg/m2 30.5 k g/m2 [facility] ([facility]) Body height 72 [in_i] 72 [in_i] [facility] ([facility]) Diastolic blood pressure 81 mm[Hg] 81 mm[Hg] [facility] ([facility]) Diastolic blood pressure 82 mm[Hg] 82 mm[Hg] [facility] ([facility]) Body weight 3596.8 [oz_av] 3596.8 [oz_av] ATHEN A ([facility]) Systolic blood pressure 145 mm[Hg] 145 mm[Hg] A [facility] ([facility]) Systolic blood pressure 127 mm[Hg] 127 mm[Hg] A [facility] ([facility]) Body mass index (BMI) [Ratio] 30.5 kg/m2 30.5 k g/m2 [facility] ([facility]) Body height 72 [in_i] 72 [in_i] [facility] ([facility]) Diastolic blood pressure 81 mm[Hg] 81 mm[Hg] [facility] ([facility]) Diastolic blood pressure 82 mm[Hg] 82 mm[Hg] [facility] ([facility]) Body weight 3596.8 [oz_av] 3596.8 [oz_av] ATHEN A ([facility]) Systolic blood pressure 145 mm[Hg] 145 mm[Hg] A [place] ([facility]) Systolic blood pressure 127 mm[Hg] 127 mm[Hg] A THEN ([facility]) Body mass index (BMI) [Ratio] 30.5 kg/m2 30.5 k g/m2 [facility] ([facility]) Body height 72 [in_i] 72 [in_i] [facility] ([facility]) Diastolic blood pressure 81 mm[Hg] 81 mm[Hg] [facility] ([facility]) Diastolic blood pressure 82 mm[Hg] 82 mm[Hg] [facility] ([facility]) Diastolic blood pressure 82 mm[Hg] 82 mm[Hg] [facility] ([facility]) Body weight 3596.8 [oz_av] 3596.8 [oz_av] ATHEN A ([facility]) Systolic blood pressure 145 mm[Hg] 145 mm[Hg] A [place] ([facility]) Systolic blood pressure 127 mm[Hg] 127 mm[Hg] A [facility] ([facility]) Body mass index (BMI) [Ratio] 30.5 kg/m2 30.5 k g/m2 [facility] ([facility]) Body height 72 [in_i] 72 [in_i] [facility] ([facility]) Diastolic blood pressure 81 mm[Hg] 81 mm[Hg] [facility] ([facility]) Diastolic blood pressure--supine 68 mm[Hg] 68 mm[Hg] [facility] ([facility]) Ra Systolic blood pressure--supine 108 mm[Hg] 108 mm[Hg] [facility] ([facility]) Ra Diastolic blood pressure--sitting 68 mm[Hg] 68 mm[Hg] [facility] ([facility]) large cuff, Ra; 110/72 LA Systolic blood pressure--sitting 108 mm[Hg] 108 mm[Hg] [facility] ([facility]) large cuff, Ra; 110/72 LA Respiratory rate 16 /min 16 /min [facility] ( [facility]) Heart rate 52 /min 52 /min [facility] ([facility]) regular Body mass index (BMI) [Ratio] 30.1 kg/m2 30.1 k g/m2 [facility] ([facility]) Body height 72 [in_i] 72 [in_i] [facility] ([facility]) 6'0" Body weight 222.00 [lb_av] 222.00 [lb_av] MEDEN T ([facility]) Body weight 3568 [oz_av] 3568 [oz_av] [facility]ILDA ([facility]) Systolic blood pressure 120 mm[Hg] 120 mm[Hg] A [facility] ([facility]) Body mass index (BMI) [Ratio] 30.2 kg/m2 30.2 k g/m2 [facility] ([facility]) Body height 72 [in_i] 72 [in_i] [facility] ([facility]) Diastolic blood pressure 81 mm[Hg] 81 mm[Hg] [facility] ([facility]) Body weight 3568 [oz_av] 3568 [oz_av] [facility] ([facility]) Systolic blood pressure 120 mm[Hg] 120 mm[Hg] A [facility] ([facility]) Body mass index (BMI) [Ratio] 30.2 kg/m2 30.2 k g/m2 [facility] ([facility]) Body height 72 [in_i] 72 [in_i] [facility] ([facility]) Diastolic blood pressure 81 mm[Hg] 81 mm[Hg] [facility] ([facility]) Body weight 3568 [oz_av] 3568 [oz_av] [facility] ([facility]) Systolic blood pressure 120 mm[Hg] 120 mm[Hg] A [facility] ([facility]) Body mass index (BMI) [Ratio] 30.2 kg/m2 30.2 k g/m2 [facility] ([facility]) Body height 72 [in_i] 72 [in_i] [facility] ([facility]) Diastolic blood pressure 81 mm[Hg] 81 mm[Hg] [facility] ([facility]) Body weight 3568 [oz_av] 3568 [oz_av] [facility] ([facility]) Systolic blood pressure 120 mm[Hg] 120 mm[Hg] A THEN ([facility]) Body mass index (BMI) [Ratio] 30.2 kg/m2 30.2 k g/m2 [facility] ([facility]) Body height 72 [in_i] 72 [in_i] [facility] ([facility]) Diastolic blood pressure 81 mm[Hg] 81 mm[Hg] [facility] ([facility]) Body weight 3568 [oz_av] 3568 [oz_av] [facility] ([facility]) Systolic blood pressure 120 mm[Hg] 120 mm[Hg] A THEN ([facility]) Body mass index (BMI) [Ratio] 30.2 kg/m2 30.2 k g/m2 [facility] ([facility]) Body height 72 [in_i] 72 [in_i] [facility] ([facility]) Diastolic blood pressure 81 mm[Hg] 81 mm[Hg] [facility] ([facility]) Body weight 3568 [oz_av] 3568 [oz_av] [facility] ([facility]) Systolic blood pressure 120 mm[Hg] 120 mm[Hg] A THEN ([facility]) Body mass index (BMI) [Ratio] 30.2 kg/m2 30.2 k g/m2 [facility] ([facility]) Body height 72 [in_i] 72 [in_i] [facility] ([facility]) Diastolic blood pressure 81 mm[Hg] 81 mm[Hg] [facility] ([facility]) Body weight 3568 [oz_av] 3568 [oz_av] [facility] ([facility]) Systolic blood pressure 120 mm[Hg] 120 mm[Hg] A THEN ([facility]) Body mass index (BMI) [Ratio] 30.2 kg/m2 30.2 k g/m2 [facility] ([facility]) Body height 72 [in_i] 72 [in_i] [facility] ([facility]) Diastolic blood pressure 81 mm[Hg] 81 mm[Hg] [facility] ([facility]) Body weight 3568 [oz_av] 3568 [oz_av] [facility] ([facility]) Systolic blood pressure 120 mm[Hg] 120 mm[Hg] A LUISA ([facility]) Body mass index (BMI) [Ratio] 30.2 kg/m2 30.2 k g/m2 [facility] ([facility]) Body height 72 [in_i] 72 [in_i] [facility] ([facility]) Diastolic blood pressure 81 mm[Hg] 81 mm[Hg] [facility] ([facility]) Body weight 3568 [oz_av] 3568 [oz_av] [facility] ([facility]) Systolic blood pressure 120 mm[Hg] 120 mm[Hg] A [place] ([facility]) Body mass index (BMI) [Ratio] 30.2 kg/m2 30.2 k g/m2 [facility] ([facility]) Body height 72 [in_i] 72 [in_i] [facility] ([facility]) Diastolic blood pressure 81 mm[Hg] 81 mm[Hg] [facility] ([facility]) Body weight 3568 [oz_av] 3568 [oz_av] [facility] ([facility]) Systolic blood pressure 120 mm[Hg] 120 mm[Hg] A [place] ([facility]) Body mass index (BMI) [Ratio] 30.2 kg/m2 30.2 k g/m2 [facility] ([facility]) Body height 72 [in_i] 72 [in_i] [facility] ([facility]) Diastolic blood pressure 81 mm[Hg] 81 mm[Hg] [facility] ([facility]) Body weight 3587.2 [oz_av] 3587.2 [oz_av] ATHEN A ([facility]) Systolic blood pressure 130 mm[Hg] 130 mm[Hg] A THENA ([facility]) Body mass index (BMI) [Ratio] 30.4 kg/m2 30.4 k g/m2 [facility] ([facility]) Body height 72 [in_i] 72 [in_i] [facility] ([facility]) Diastolic blood pressure 86 mm[Hg] 86 mm[Hg] [facility] ([facility]) Body weight 3587.2 [oz_av] 3587.2 [oz_av] ATHEN A ([facility]) Systolic blood pressure 130 mm[Hg] 130 mm[Hg] A [facility] ([facility]) Body mass index (BMI) [Ratio] 30.4 kg/m2 30.4 k g/m2 [facility] ([facility]) Body height 72 [in_i] 72 [in_i] [facility] ([facility]) Diastolic blood pressure 86 mm[Hg] 86 mm[Hg] [facility] ([facility]) Body weight 3587.2 [oz_av] 3587.2 [oz_av] ATHEN A ([facility]) Systolic blood pressure 130 mm[Hg] 130 mm[Hg] A LU[place] ([facility]) Body mass index (BMI) [Ratio] 30.4 kg/m2 30.4 k g/m2 H[facility] ([facility]) Body height 72 [in_i] 72 [in_i] HIL[facility] ([facility]) Diastolic blood pressure 86 mm[Hg] 86 mm[Hg] H[facility] ([facility]) Body weight 3587.2 [oz_av] 3587.2 [oz_av] ATHEN A ([facility]) Systolic blood pressure 130 mm[Hg] 130 mm[Hg] A THE[facility] ([facility]) Body mass index (BMI) [Ratio] 30.4 kg/m2 30.4 k g/m2 [facility] ([facility]) Body height 72 [in_i] 72 [in_i] [facility] ([facility]) Diastolic blood pressure 86 mm[Hg] 86 mm[Hg] [facility] ([facility]) Body weight 3587.2 [oz_av] 3587.2 [oz_av] ATHEN A ([facility]) Systolic blood pressure 130 mm[Hg] 130 mm[Hg] A THENA ([facility]) Body mass index (BMI) [Ratio] 30.4 kg/m2 30.4 k g/m2 H[facility] ([facility]) Body height 72 [in_i] 72 [in_i] HIL[facility] ([facility]) Diastolic blood pressure 86 mm[Hg] 86 mm[Hg] [facility] ([facility]) Body weight 3587.2 [oz_av] 3587.2 [oz_av] ATHEN A ([facility]) Systolic blood pressure 130 mm[Hg] 130 mm[Hg] A THE[facility] ([facility]) Body mass index (BMI) [Ratio] 30.4 kg/m2 30.4 k g/m2 H[facility] ([facility]) Body height 72 [in_i] 72 [in_i] [facility] ([facility]) Diastolic blood pressure 86 mm[Hg] 86 mm[Hg] HILDA ([facility]) Body weight 3587.2 [oz_av] 3587.2 [oz_av] ATHEN A ([facility]) Systolic blood pressure 130 mm[Hg] 130 mm[Hg] A LUISA ([facility]) Body mass index (BMI) [Ratio] 30.4 kg/m2 30.4 k g/m2 HILDA ([facility]) Body height 72 [in_i] 72 [in_i] HILDA ([facility]) Diastolic blood pressure 86 mm[Hg] 86 mm[Hg] H[facility] ([facility]) Body weight 3587.2 [oz_av] 3587.2 [oz_av] ATHEN A ([facility]) Systolic blood pressure 130 mm[Hg] 130 mm[Hg] A THENA ([facility]) Body mass index (BMI) [Ratio] 30.4 kg/m2 30.4 k g/m2 H[facility]DA ([facility]) Body height 72 [in_i] 72 [in_i] HILDA ([facility]) Diastolic blood pressure 86 mm[Hg] 86 mm[Hg] HILDA ([facility]) Body weight 3587.2 [oz_av] 3587.2 [oz_av] ATHEN A ([facility]) Systolic blood pressure 130 mm[Hg] 130 mm[Hg] A THENA ([facility]) Body mass index (BMI) [Ratio] 30.4 kg/m2 30.4 k g/m2 HILDA ([facility]) Body height 72 [in_i] 72 [in_i] HILDA ([facility]) Diastolic blood pressure 86 mm[Hg] 86 mm[Hg] HILDA ([facility]) Body weight 3587.2 [oz_av] 3587.2 [oz_av] ATHEN A ([facility]) Systolic blood pressure 130 mm[Hg] 130 mm[Hg] A THENA ([facility]) Body mass index (BMI) [Ratio] 30.4 kg/m2 30.4 k g/m2 HILAD ([facility]) Body height 72 [in_i] 72 [in_i] HILDA ([facility]) Diastolic blood pressure 86 mm[Hg] 86 mm[Hg] HILDA ([facility]) Body weight 3558 [oz_av] 3558 [oz_av] HILDA ([facility]) Systolic blood pressure 130 mm[Hg] 130 mm[Hg] A [facility] ([facility]) Body mass index (BMI) [Ratio] 30.2 kg/m2 30.2 k g/m2 HILDA ([facility]) Body height 72 [in_i] 72 [in_i] HILDA ([facility]) Diastolic blood pressure 85 mm[Hg] 85 mm[Hg] HILDA ([facility]) Body weight 3558 [oz_av] 3558 [oz_av] HILDA ([facility]) Systolic blood pressure 130 mm[Hg] 130 mm[Hg] A THENA ([facility]) Body mass index (BMI) [Ratio] 30.2 kg/m2 30.2 k g/m2 H[facility]DA ([facility]) Body height 72 [in_i] 72 [in_i] HILDA ([facility]) Diastolic blood pressure 85 mm[Hg] 85 mm[Hg] HILDA ([facility]) Body weight 3558 [oz_av] 3558 [oz_av] HILDA ([facility]) Systolic blood pressure 130 mm[Hg] 130 mm[Hg] A [facility] ([facility]) Body mass index (BMI) [Ratio] 30.2 kg/m2 30.2 k g/m2 HILDA ([facility]) Body height 72 [in_i] 72 [in_i] HILDA ([facility]) Diastolic blood pressure 85 mm[Hg] 85 mm[Hg] HILDA ([facility]) Body weight 3558 [oz_av] 3558 [oz_av] HILDA ([facility]) Systolic blood pressure 130 mm[Hg] 130 mm[Hg] A [facility] ([facility]) Body mass index (BMI) [Ratio] 30.2 kg/m2 30.2 k g/m2 HILDA ([facility]) Body height 72 [in_i] 72 [in_i] HILDA ([facility]) Diastolic blood pressure 85 mm[Hg] 85 mm[Hg] HILDA ([facility]) Body weight 3558 [oz_av] 3558 [oz_av] HILDA ([facility]) Systolic blood pressure 130 mm[Hg] 130 mm[Hg] A [facility] ([facility]) Body mass index (BMI) [Ratio] 30.2 kg/m2 30.2 k g/m2 HILDA ([facility]) Body height 72 [in_i] 72 [in_i] HILDA ([facility]) Diastolic blood pressure 85 mm[Hg] 85 mm[Hg] HILDA ([facility]) Body weight 3558 [oz_av] 3558 [oz_av] HILDA ([facility]) Systolic blood pressure 130 mm[Hg] 130 mm[Hg] A [facility] [place] ([facility]) Body mass index (BMI) [Ratio] 30.2 kg/m2 30.2 k g/m2 HILDA ([facility]) Body height 72 [in_i] 72 [in_i] HILDA ([facility]) Diastolic blood pressure 85 mm[Hg] 85 mm[Hg] HILDA ([facility]) Body weight 3558 [oz_av] 3558 [oz_av] HILDA ([facility]) Systolic blood pressure 130 mm[Hg] 130 mm[Hg] A [facility] ([facility]) Body mass index (BMI) [Ratio] 30.2 kg/m2 30.2 k g/m2 HILDA ([facility]) Body height 72 [in_i] 72 [in_i] HILDA ([facility]) Diastolic blood pressure 85 mm[Hg] 85 mm[Hg] HILDA ([facility]) Diastolic blood pressure 85 mm[Hg] 85 mm[Hg] HILDA ([facility]) Body weight 3558 [oz_av] 3558 [oz_av] HILDA ([facility]) Systolic blood pressure 130 mm[Hg] 130 mm[Hg] A THEN ([facility]) Body mass index (BMI) [Ratio] 30.2 kg/m2 30.2 k g/m2 HILDA ([facility]) Body height 72 [in_i] 72 [in_i] HILDA ([facility]) Diastolic blood pressure 85 mm[Hg] 85 mm[Hg] HILDA ([facility]) Body weight 3558 [oz_av] 3558 [oz_av] HILDA ([facility]) Systolic blood pressure 130 mm[Hg] 130 mm[Hg] A [facility] ([facility]) Body mass index (BMI) [Ratio] 30.2 kg/m2 30.2 k g/m2 HILDA ([facility]) Body height 72 [in_i] 72 [in_i] HILDA ([facility]) Diastolic blood pressure 85 mm[Hg] 85 mm[Hg] HILDA ([facility]) Body weight 3558 [oz_av] 3558 [oz_av] HILDA ([facility]) Systolic blood pressure 130 mm[Hg] 130 mm[Hg] A THEN ([facility]) Body mass index (BMI) [Ratio] 30.2 kg/m2 30.2 k g/m2 HILDA ([facility]) Body height 72 [in_i] 72 [in_i] HILDA ([facility]) Diastolic blood pressure 85 mm[Hg] 85 mm[Hg] HILDA ([facility]) Body weight 3558 [oz_av] 3558 [oz_av] HILDA ([facility]) Systolic blood pressure 130 mm[Hg] 130 mm[Hg] A [facility] ([facility]) Body mass index (BMI) [Ratio] 30.2 kg/m2 30.2 k g/m2 HILDA ([facility]) Body height 72 [in_i] 72 [in_i] HILDA ([facility]) Diastolic blood pressure 85 mm[Hg] 85 mm[Hg] HILDA ([facility]) Body weight 3558 [oz_av] 3558 [oz_av] HILDA ([facility]) Systolic blood pressure 130 mm[Hg] 130 mm[Hg] A [facility] ([facility]) Body mass index (BMI) [Ratio] 30.2 kg/m2 30.2 k g/m2 HILDA ([facility]) Body height 72 [in_i] 72 [in_i] HILDA ([facility]) Body weight 3558 [oz_av] 3558 [oz_av] HILDA ([facility]) Systolic blood pressure 130 mm[Hg] 130 mm[Hg] A [facility] ([facility]) Body mass index (BMI) [Ratio] 30.2 kg/m2 30.2 k g/m2 HILDA ([facility]) Body height 72 [in_i] 72 [in_i] HILDA ([facility]) Diastolic blood pressure 85 mm[Hg] 85 mm[Hg] HILDA ([facility]) Body weight 3558 [oz_av] 3558 [oz_av] HILDA ([facility]) Systolic blood pressure 130 mm[Hg] 130 mm[Hg] A [facility] [place] ([facility]) Body mass index (BMI) [Ratio] 30.2 kg/m2 30.2 k g/m2 HILDA ([facility]) Body height 72 [in_i] 72 [in_i] HILDA ([facility]) Diastolic blood pressure 85 mm[Hg] 85 mm[Hg] HILDA ([facility]) Body weight 3558 [oz_av] 3558 [oz_av] HILDA ([facility]) Systolic blood pressure 130 mm[Hg] 130 mm[Hg] A [facility] ([facility]) Body mass index (BMI) [Ratio] 30.2 kg/m2 30.2 k g/m2 HILDA ([facility]) Body height 72 [in_i] 72 [in_i] HILDA ([facility]) Diastolic blood pressure 85 mm[Hg] 85 mm[Hg] HILDA ([facility]) Body weight 3539.2 [oz_av] 3539.2 [oz_av] ATHEN A ([facility]) Systolic blood pressure 148 mm[Hg] 148 mm[Hg] A THENA ([facility]) Systolic blood pressure 135 mm[Hg] 135 mm[Hg] A THENA ([facility]) Body height 72 [in_i] 72 [in_i] HILDA ([facility]) Diastolic blood pressure 91 mm[Hg] 91 mm[Hg] HILDA ([facility]) Diastolic blood pressure 91 mm[Hg] 91 mm[Hg] HILDA ([facility]) Body weight 3539.2 [oz_av] 3539.2 [oz_av] ATHEN A ([facility]) Systolic blood pressure 148 mm[Hg] 148 mm[Hg] A THENA ([facility]) Systolic blood pressure 135 mm[Hg] 135 mm[Hg] A THENA ([facility]) Body height 72 [in_i] 72 [in_i] HILDA ([facility]) Diastolic blood pressure 91 mm[Hg] 91 mm[Hg] HILDA ([facility]) Diastolic blood pressure 91 mm[Hg] 91 mm[Hg] HILDA ([facility]) Body weight 3539.2 [oz_av] 3539.2 [oz_av] ATHEN A ([facility]) Systolic blood pressure 148 mm[Hg] 148 mm[Hg] A THENA ([facility]) Systolic blood pressure 135 mm[Hg] 135 mm[Hg] A THENA ([facility]) Body height 72 [in_i] 72 [in_i] HILDA ([facility]) Diastolic blood pressure 91 mm[Hg] 91 mm[Hg] HILDA ([facility]) Diastolic blood pressure 91 mm[Hg] 91 mm[Hg] HILDA ([facility]) Body weight 3539.2 [oz_av] 3539.2 [oz_av] ATHEN A ([facility]) Systolic blood pressure 148 mm[Hg] 148 mm[Hg] A THENA ([facility]) Systolic blood pressure 135 mm[Hg] 135 mm[Hg] A THENA ([facility]) Body height 72 [in_i] 72 [in_i] HILDA ([facility]) Diastolic blood pressure 91 mm[Hg] 91 mm[Hg] HILDA ([facility]) Diastolic blood pressure 91 mm[Hg] 91 mm[Hg] HILDA ([facility]) Body weight 3539.2 [oz_av] 3539.2 [oz_av] ATHEN A ([facility]) Systolic blood pressure 148 mm[Hg] 148 mm[Hg] A THENA ([facility]) Systolic blood pressure 135 mm[Hg] 135 mm[Hg] A THENA ([facility]) Body height 72 [in_i] 72 [in_i] HILDA ([facility]) Diastolic blood pressure 91 mm[Hg] 91 mm[Hg] HILDA ([facility]) Diastolic blood pressure 91 mm[Hg] 91 mm[Hg] HILDA ([facility]) Body weight 3539.2 [oz_av] 3539.2 [oz_av] ATHEN A ([facility]) Systolic blood pressure 148 mm[Hg] 148 mm[Hg] A THENA ([facility]) Systolic blood pressure 135 mm[Hg] 135 mm[Hg] A THENA ([facility]) Body height 72 [in_i] 72 [in_i] HILDA ([facility]) Diastolic blood pressure 91 mm[Hg] 91 mm[Hg] HILDA ([facility]) Diastolic blood pressure 91 mm[Hg] 91 mm[Hg] HILDA ([facility]) Body weight 3539.2 [oz_av] 3539.2 [oz_av] ATHEN A ([facility]) Systolic blood pressure 148 mm[Hg] 148 mm[Hg] A THENA ([facility]) Systolic blood pressure 135 mm[Hg] 135 mm[Hg] A THENA ([facility]) Body height 72 [in_i] 72 [in_i] HILDA ([facility]) Diastolic blood pressure 91 mm[Hg] 91 mm[Hg] HILDA ([facility]) Diastolic blood pressure 91 mm[Hg] 91 mm[Hg] HILDA ([facility]) Body weight 3539.2 [oz_av] 3539.2 [oz_av] ATHEN A ([facility]) Systolic blood pressure 148 mm[Hg] 148 mm[Hg] A THENA ([facility]) Systolic blood pressure 135 mm[Hg] 135 mm[Hg] A [facility] [place] ([facility]) Body height 72 [in_i] 72 [in_i] HILDA ([facility]) Diastolic blood pressure 91 mm[Hg] 91 mm[Hg] HILDA ([facility]) Diastolic blood pressure 91 mm[Hg] 91 mm[Hg] HILDA ([facility]) Body weight 3539.2 [oz_av] 3539.2 [oz_av] ATHEN A ([facility]) Systolic blood pressure 148 mm[Hg] 148 mm[Hg] A THENA ([facility]) Systolic blood pressure 135 mm[Hg] 135 mm[Hg] A THENA ([facility]) Body height 72 [in_i] 72 [in_i] HILDA ([facility]) Diastolic blood pressure 91 mm[Hg] 91 mm[Hg] HILDA ([facility]) Diastolic blood pressure 91 mm[Hg] 91 mm[Hg] HILDA ([facility]) Body weight 3539.2 [oz_av] 3539.2 [oz_av] ATHEN A ([facility]) Systolic blood pressure 148 mm[Hg] 148 mm[Hg] A THENA ([facility]) Systolic blood pressure 135 mm[Hg] 135 mm[Hg] A THENA ([facility]) Body height 72 [in_i] 72 [in_i] HILDA ([facility]) Diastolic blood pressure 91 mm[Hg] 91 mm[Hg] HILDA ([facility]) Diastolic blood pressure 91 mm[Hg] 91 mm[Hg] HILDA ([facility]) Body weight 3539.2 [oz_av] 3539.2 [oz_av] ATHEN A ([facility]) Systolic blood pressure 148 mm[Hg] 148 mm[Hg] A THENA ([facility]) Systolic blood pressure 135 mm[Hg] 135 mm[Hg] A THENA ([facility]) Body height 72 [in_i] 72 [in_i] HILDA ([facility]) Diastolic blood pressure 91 mm[Hg] 91 mm[Hg] HIDLA ([facility]) Diastolic blood pressure 91 mm[Hg] 91 mm[Hg] HILDA ([facility]) Body weight 3539.2 [oz_av] 3539.2 [oz_av] ATHEN A ([facility]) Systolic blood pressure 148 mm[Hg] 148 mm[Hg] A THENA ([facility]) Systolic blood pressure 135 mm[Hg] 135 mm[Hg] A THENA ([facility]) Body height 72 [in_i] 72 [in_i] HILDA ([facility]) Diastolic blood pressure 91 mm[Hg] 91 mm[Hg] HILDA ([facility]) Diastolic blood pressure 91 mm[Hg] 91 mm[Hg] HILDA ([facility]) Body weight 3539.2 [oz_av] 3539.2 [oz_av] ATHEN A ([facility]) Systolic blood pressure 148 mm[Hg] 148 mm[Hg] A THENA ([facility]) Systolic blood pressure 135 mm[Hg] 135 mm[Hg] A THENA ([facility]) Body height 72 [in_i] 72 [in_i] HILDA ([facility]) Diastolic blood pressure 91 mm[Hg] 91 mm[Hg] HILDA ([facility]) Diastolic blood pressure 91 mm[Hg] 91 mm[Hg] HILDA ([facility]) Body weight 3539.2 [oz_av] 3539.2 [oz_av] ATHEN A ([facility]) Systolic blood pressure 148 mm[Hg] 148 mm[Hg] A THENA ([facility]) Systolic blood pressure 135 mm[Hg] 135 mm[Hg] A THENA ([facility]) Body height 72 [in_i] 72 [in_i] HILDA ([facility]) Diastolic blood pressure 91 mm[Hg] 91 mm[Hg] HILDA ([facility]) Diastolic blood pressure 91 mm[Hg] 91 mm[Hg] HILDA ([facility]) Body weight 3539.2 [oz_av] 3539.2 [oz_av] ATHEN A ([facility]) Systolic blood pressure 148 mm[Hg] 148 mm[Hg] A THENA ([facility]) Systolic blood pressure 135 mm[Hg] 135 mm[Hg] A [facility] [place] ([facility]) Body height 72 [in_i] 72 [in_i] HILDA ([facility]) Diastolic blood pressure 91 mm[Hg] 91 mm[Hg] HILDA ([facility]) Diastolic blood pressure 91 mm[Hg] 91 mm[Hg] HILDA ([facility]) Body weight 3539.2 [oz_av] 3539.2 [oz_av] ATHEN A ([facility]) Systolic blood pressure 148 mm[Hg] 148 mm[Hg] A THENA ([facility]) Systolic blood pressure 135 mm[Hg] 135 mm[Hg] A THENA ([facility]) Body height 72 [in_i] 72 [in_i] HILDA ([facility]) Diastolic blood pressure 91 mm[Hg] 91 mm[Hg] HLIDA ([facility]) Diastolic blood pressure 91 mm[Hg] 91 mm[Hg] HILDA ([facility]) Body weight 3539.2 [oz_av] 3539.2 [oz_av] ATHEN A ([facility]) Systolic blood pressure 148 mm[Hg] 148 mm[Hg] A THENA ([facility]) Systolic blood pressure 135 mm[Hg] 135 mm[Hg] A THENA ([facility]) Body height 72 [in_i] 72 [in_i] HILDA ([facility]) Diastolic blood pressure 91 mm[Hg] 91 mm[Hg] HILDA ([facility]) Diastolic blood pressure 91 mm[Hg] 91 mm[Hg] HILDA ([facility]) Body weight 3542.4 [oz_av] 3542.4 [oz_av] ATHEN A ([facility]) Systolic blood pressure 122 mm[Hg] 122 mm[Hg] A [facility] [place] ([facility]) Body height 72 [in_i] 72 [in_i] HILDA ([facility]) Diastolic blood pressure 74 mm[Hg] 74 mm[Hg] HILDA ([facility]) Body weight 3542.4 [oz_av] 3542.4 [oz_av] ATHEN A ([facility]) Systolic blood pressure 122 mm[Hg] 122 mm[Hg] A [facility] [place] ([facility]) Body height 72 [in_i] 72 [in_i] HILDA ([facility]) Diastolic blood pressure 74 mm[Hg] 74 mm[Hg] HILDA ([facility]) Body weight 3542.4 [oz_av] 3542.4 [oz_av] ATHEN A ([facility]) Systolic blood pressure 122 mm[Hg] 122 mm[Hg] A [facility] ([facility]) Body height 72 [in_i] 72 [in_i] HILDA ([facility]) Diastolic blood pressure 74 mm[Hg] 74 mm[Hg] HILDA ([facility]) Body weight 3542.4 [oz_av] 3542.4 [oz_av] ATHEN A ([facility]) Systolic blood pressure 122 mm[Hg] 122 mm[Hg] A [facility] [place] ([facility]) Body height 72 [in_i] 72 [in_i] HILDA ([facility]) Diastolic blood pressure 74 mm[Hg] 74 mm[Hg] HILDA ([facility]) Body weight 3542.4 [oz_av] 3542.4 [oz_av] ATHEN A ([facility]) Systolic blood pressure 122 mm[Hg] 122 mm[Hg] A [facility] [place] ([facility]) Body height 72 [in_i] 72 [in_i] HILDA ([facility]) Diastolic blood pressure 74 mm[Hg] 74 mm[Hg] HILDA ([facility]) Body weight 3542.4 [oz_av] 3542.4 [oz_av] ATHEN A ([facility]) Systolic blood pressure 122 mm[Hg] 122 mm[Hg] A [facility] [place] ([facility]) Body height 72 [in_i] 72 [in_i] HILDA ([facility]) Diastolic blood pressure 74 mm[Hg] 74 mm[Hg] HILDA ([facility]) Body weight 3542.4 [oz_av] 3542.4 [oz_av] ATHEN A ([facility]) Systolic blood pressure 122 mm[Hg] 122 mm[Hg] A THENA ([facility]) Body height 72 [in_i] 72 [in_i] HILDA ([facility]) Diastolic blood pressure 74 mm[Hg] 74 mm[Hg] HILDA ([facility]) Body weight 3542.4 [oz_av] 3542.4 [oz_av] ATHEN A ([facility]) Systolic blood pressure 122 mm[Hg] 122 mm[Hg] A [facility] [place] ([facility]) Body height 72 [in_i] 72 [in_i] HILDA ([facility]) Diastolic blood pressure 74 mm[Hg] 74 mm[Hg] HILDA ([facility]) Body weight 3542.4 [oz_av] 3542.4 [oz_av] ATHEN A ([facility]) Systolic blood pressure 122 mm[Hg] 122 mm[Hg] A [facility] [place] ([facility]) Body height 72 [in_i] 72 [in_i] HILDA ([facility]) Diastolic blood pressure 74 mm[Hg] 74 mm[Hg] HILDA ([facility]) Body weight 3542.4 [oz_av] 3542.4 [oz_av] ATHEN A ([facility]) Systolic blood pressure 122 mm[Hg] 122 mm[Hg] A [facility] [place] ([facility]) Body height 72 [in_i] 72 [in_i] HILDA ([facility]) Diastolic blood pressure 74 mm[Hg] 74 mm[Hg] HILDA ([facility]) Body weight 3542.4 [oz_av] 3542.4 [oz_av] ATHEN A ([facility]) Systolic blood pressure 122 mm[Hg] 122 mm[Hg] A [facility] [place] ([facility]) Body height 72 [in_i] 72 [in_i] HILDA ([facility]) Diastolic blood pressure 74 mm[Hg] 74 mm[Hg] HILDA ([facility]) Body weight 3542.4 [oz_av] 3542.4 [oz_av] ATHEN A ([facility]) Systolic blood pressure 122 mm[Hg] 122 mm[Hg] A [facility] [place] ([facility]) Body height 72 [in_i] 72 [in_i] HILDA ([facility]) Diastolic blood pressure 74 mm[Hg] 74 mm[Hg] HILDA ([facility]) Body weight 3542.4 [oz_av] 3542.4 [oz_av] ATHEN A ([facility]) Systolic blood pressure 122 mm[Hg] 122 mm[Hg] A [facility] ([facility]) Body height 72 [in_i] 72 [in_i] HILDA ([facility]) Diastolic blood pressure 74 mm[Hg] 74 mm[Hg] HILDA ([facility]) Diastolic blood pressure 74 mm[Hg] 74 mm[Hg] HILDA ([facility]) Body weight 3542.4 [oz_av] 3542.4 [oz_av] ATHEN A ([facility]) Systolic blood pressure 122 mm[Hg] 122 mm[Hg] A [facility] ([facility]) Body height 72 [in_i] 72 [in_i] HILDA ([facility]) Diastolic blood pressure 74 mm[Hg] 74 mm[Hg] HILDA ([facility]) Body weight 3542.4 [oz_av] 3542.4 [oz_av] ATHEN A ([facility]) Systolic blood pressure 122 mm[Hg] 122 mm[Hg] A [facility] [place] ([facility]) Body height 72 [in_i] 72 [in_i] HILDA ([facility]) Diastolic blood pressure 74 mm[Hg] 74 mm[Hg] HILDA ([facility]) Body weight 3542.4 [oz_av] 3542.4 [oz_av] ATHEN A ([facility]) Systolic blood pressure 122 mm[Hg] 122 mm[Hg] A [facility] [place] ([facility]) Body height 72 [in_i] 72 [in_i] HILDA ([facility]) Diastolic blood pressure 74 mm[Hg] 74 mm[Hg] HILDA ([facility]) Body weight 3542.4 [oz_av] 3542.4 [oz_av] ATHEN A ([facility]) Systolic blood pressure 122 mm[Hg] 122 mm[Hg] A THENA ([facility]) Body height 72 [in_i] 72 [in_i] HILDA ([facility]) Body weight 3508 [oz_av] 3508 [oz_av] HILDA ([facility]) Systolic blood pressure 118 mm[Hg] 118 mm[Hg] A [facility] [place] ([facility]) Body height 72 [in_i] 72 [in_i] HILDA ([facility]) Diastolic blood pressure 76 mm[Hg] 76 mm[Hg] HILDA ([facility]) Body weight 3508 [oz_av] 3508 [oz_av] HILDA ([facility]) Systolic blood pressure 118 mm[Hg] 118 mm[Hg] A THENA ([facility]) Body height 72 [in_i] 72 [in_i] HILDA ([facility]) Diastolic blood pressure 76 mm[Hg] 76 mm[Hg] HILDA ([facility]) Body weight 3508 [oz_av] 3508 [oz_av] HILDA ([facility]) Systolic blood pressure 118 mm[Hg] 118 mm[Hg] A THENA ([facility]) Body height 72 [in_i] 72 [in_i] HILDA ([facility]) Diastolic blood pressure 76 mm[Hg] 76 mm[Hg] HILDA ([facility]) Body weight 3508 [oz_av] 3508 [oz_av] HILDA ([facility]) Systolic blood pressure 118 mm[Hg] 118 mm[Hg] A [facility] [place] ([facility]) Body height 72 [in_i] 72 [in_i] HILDA ([facility]) Diastolic blood pressure 76 mm[Hg] 76 mm[Hg] HILDA ([facility]) Body weight 3508 [oz_av] 3508 [oz_av] HILDA ([facility]) Systolic blood pressure 118 mm[Hg] 118 mm[Hg] A [facility] [place] ([facility]) Body height 72 [in_i] 72 [in_i] HILDA ([facility]) Diastolic blood pressure 76 mm[Hg] 76 mm[Hg] HILDA ([facility]) Body weight 3508 [oz_av] 3508 [oz_av] HILDA ([facility]) Systolic blood pressure 118 mm[Hg] 118 mm[Hg] A [facility] [place] ([facility]) Body height 72 [in_i] 72 [in_i] HILDA ([facility]) Diastolic blood pressure 76 mm[Hg] 76 mm[Hg] HILDA ([facility]) Body weight 3508 [oz_av] 3508 [oz_av] HILDA ([facility]) Systolic blood pressure 118 mm[Hg] 118 mm[Hg] A THENA ([facility]) Body height 72 [in_i] 72 [in_i] HILDA ([facility]) Diastolic blood pressure 76 mm[Hg] 76 mm[Hg] HILDA ([facility]) Body weight 3508 [oz_av] 3508 [oz_av] HILDA ([facility]) Systolic blood pressure 118 mm[Hg] 118 mm[Hg] A THENA ([facility]) Body height 72 [in_i] 72 [in_i] HILDA ([facility]) Diastolic blood pressure 76 mm[Hg] 76 mm[Hg] HILDA ([facility]) Body weight 3508 [oz_av] 3508 [oz_av] HILDA ([facility]) Systolic blood pressure 118 mm[Hg] 118 mm[Hg] A THENA ([facility]) Body height 72 [in_i] 72 [in_i] HILDA ([facility]) Diastolic blood pressure 76 mm[Hg] 76 mm[Hg] HILDA ([facility]) Body weight 3508 [oz_av] 3508 [oz_av] HILDA ([facility]) Systolic blood pressure 118 mm[Hg] 118 mm[Hg] A [facility] [place] ([facility]) Body height 72 [in_i] 72 [in_i] HILDA ([facility]) Diastolic blood pressure 76 mm[Hg] 76 mm[Hg] HILDA ([facility]) Body weight 3508 [oz_av] 3508 [oz_av] HILDA ([facility]) Systolic blood pressure 118 mm[Hg] 118 mm[Hg] A THENA ([facility]) Body height 72 [in_i] 72 [in_i] HILDA ([facility]) Diastolic blood pressure 76 mm[Hg] 76 mm[Hg] HILDA ([facility]) Body weight 3508 [oz_av] 3508 [oz_av] HILDA ([facility]) Systolic blood pressure 118 mm[Hg] 118 mm[Hg] A [facility] ([facility]) Body height 72 [in_i] 72 [in_i] HILDA ([facility]) Diastolic blood pressure 76 mm[Hg] 76 mm[Hg] HILDA ([facility]) Body weight 3508 [oz_av] 3508 [oz_av] HILDA ([facility]) Systolic blood pressure 118 mm[Hg] 118 mm[Hg] A [facility] [place] ([facility]) Body height 72 [in_i] 72 [in_i] HILDA ([facility]) Diastolic blood pressure 76 mm[Hg] 76 mm[Hg] HILDA ([facility]) Body weight 3508 [oz_av] 3508 [oz_av] HILDA ([facility]) Systolic blood pressure 118 mm[Hg] 118 mm[Hg] A [facility] [place] ([facility]) Body height 72 [in_i] 72 [in_i] HILDA ([facility]) Diastolic blood pressure 76 mm[Hg] 76 mm[Hg] HILDA ([facility]) Body weight 3508 [oz_av] 3508 [oz_av] HILDA ([facility]) Systolic blood pressure 118 mm[Hg] 118 mm[Hg] A THENA ([facility]) Body height 72 [in_i] 72 [in_i] HILDA ([facility]) Diastolic blood pressure 76 mm[Hg] 76 mm[Hg] HILDA ([facility]) Body weight 3508 [oz_av] 3508 [oz_av] HILDA ([facility]) Systolic blood pressure 118 mm[Hg] 118 mm[Hg] A LUISA ([facility]) Body height 72 [in_i] 72 [in_i] HILDA ([facility]) Diastolic blood pressure 76 mm[Hg] 76 mm[Hg] HILDA ([facility]) Body weight 3508 [oz_av] 3508 [oz_av] HILDA ([facility]) Systolic blood pressure 118 mm[Hg] 118 mm[Hg] A [facility]) Body height 72 [in_i] 72 [in_i] HILDA ([facility]) Diastolic blood pressure 76 mm[Hg] 76 mm[Hg] HILDA ([facility]) Patient Treatment Plan of Care Planned Activity Planned Date Details Description Data Source (s) Omeprazole 20 MG Delayed Release Oral Tablet 09/24/2019 12:00:00 AM EDT [place] ([facility]) Omeprazole 20 MG Delayed Release Oral Tablet 09/24/2019 12:00:00 AM EDT [place] ([facility]) Lorazepam 1 MG Oral Tablet 09/10/2019 12:00:00 AM EDT [place] ([facility]) Escitalopram 10 MG Oral Tablet [Lexapro] 09/10/2019 12:00:00 AM EDT [facility]ILDA ([facility]) Hydroxyzine Hydrochloride 10 MG Oral Tablet 09/10/2019 12:00:00 AM EDT HILDA ([facility]) Lorazepam 1 MG Oral Tablet 09/10/2019 12:00:00 AM EDT HILDA ([facility]) Escitalopram 10 MG Oral Tablet [Lexapro] [facility]/10[facility] 09/10[facility]2019 [facility] Traz[facility] 50 MG Oral Tablet HILDA ([facility]) Hydroxyzine Hydrochloride 10 MG Oral Tablet HILDA ([facility]) Escitalopram 10 MG Oral Tablet HILDA ([facility]) Trazodone Hydrochloride 50 MG Oral Tablet HILDA ([facility]) Hydroxyzine Hydrochloride 10 MG Oral Tablet HILDA ([facility]) Escitalopram 10 MG Oral Tablet HILDA ([facility]) Trazodone Hydrochloride 50 MG Oral Tablet HILDA ([facility]) Hydroxyzine Hydrochloride 10 MG Oral Tablet HILDA ([facility]) Escitalopram 10 MG Oral Tablet HILDA ([facility]) Trazodone Hydrochloride 50 MG Oral Tablet HILDA ([facility]) Hydroxyzine Hydrochloride 10 MG Oral Tablet HILDA ([facility]) Escitalopram 10 MG Oral Tablet HILDA ([facility]) Hydroxyzine Hydrochloride 10 MG Oral Tablet HILDA ([facility]) Escitalopram 10 MG Oral Tablet HILDA ([facility]) Hydroxyzine Hydrochloride 10 MG Oral Tablet HILDA ([facility]) Escitalopram 10 MG Oral Tablet HILDA ([facility]) Hydroxyzine Hydrochloride 10 MG Oral Tablet HILDA ([facility]) Escitalopram 10 MG Oral Tablet HILDA ([facility]) Hydroxyzine Hydrochloride 10 MG Oral Tablet HILDA ([facility]) Escitalopram 10 MG Oral Tablet HILDA ([facility]) Hydroxyzine Hydrochloride 10 MG Oral Tablet HILDA ([facility]) Escitalopram 10 MG Oral Tablet HILDA ([facility]) Hydroxyzine Hydrochloride 10 MG Oral Tablet HILDA ([facility]) Escitalopram 10 MG Oral Tablet HILDA ([facility])
== END 2020-03-27 14:02 | disposition home or self-care (01) ==
LOC: M ED 13:07
DX: J32.9 Chronic sinusitis, unspecified (principal); Z79.899 Other long term (current) drug therapy

== ENCOUNTER 2020-04-29 14:26 | Emergency (ER) | payer SELFPAY ==
[~2020-04-29] VITALS: Ht 182.9 cm; Wt 101.6 kg
[~2020-04-29 14:26] MED LIST changes: +AUGM875T28 PO; +CETI-24; +LEXA1TAB2
[2020-04-29] MEDS ORDERED: NS 1,000 ML IV ONE (15:20)
[2020-04-29] MEDS ORDERED: diphenhydrAMINE 50MG/ML VIAL (J1200) IV ONE (15:20)
[2020-04-29] MEDS ORDERED: ACETAMINOPHEN 500 MG TAB PO ONE (15:20)
--- NOTE | 2020-04-29 15:44 | REP ---
INDICATION: CVA - Nursing interventions must not delay CT. COMPARISON: Comparison study December 17, 2019.. TECHNIQUE: Helical scanning is acquired. 5 mm axial images were reformatted. Coronal MPR images were generated. FINDINGS: Bone window settings demonstrate an intact bony calvarium. There is no evidence of skull fracture or incidental bony calvarial lesion. There is minimal mucosal thickening in the ethmoid air cells. The visualized paranasal sinuses appear otherwise clear. No intraorbital abnormality is seen. On soft tissue window setting images; the lateral, third, and fourth ventricles are normal in size and position. Bowman-white differentiation pattern is normal above and below the tentorium. There are is no evidence of intracranial hemorrhage. No mass, edema, infarction, or midline shift is seen. No extra-axial fluid collection is appreciated. IMPRESSION: Minimal mucosal thickening in the ethmoid sinuses. Otherwise negative noncontrast head CT. <Electronically signed by Enrrique Knight > 04/29/20 [id number]
[2020-04-29] MEDS ORDERED: KETOROLAC 30 MG/ML 1ML VIAL IV ONE (15:55)
--- NOTE | 2020-04-29 15:55 | REP ---
INDICATION: CVA. COMPARISON: Comparison portable chest x-ray October 28, 2019. TECHNIQUE: Portable upright AP chest radiograph. FINDINGS: The lungs are well inflated and free of infiltrate. Pleural angles are sharp. Heart size is normal. Pulmonary vasculature is not increased. EKG monitoring electrodes are seen. IMPRESSION: Negative portable chest x-ray.. <Electronically signed by Enrrique Knight > 04/29/20 [id number]
[2020-04-29 16:20] LABS: BASO % 0.6 % (0.0-1.0); EOS # 0.2 10^3/uL (0.0-0.5); EOS % 2.7 % (0.0-3.0); HEMATOCRIT 45.6 % (42.0-52.0); HEMOGLOBIN 15.1 g/dl (13.5-17.5); LYMPH # 2.1 10^3/uL (1.5-5.0); LYMPH % 33.6 % (24.0-44.0); MEAN CORPUSCULAR HEMOGLOBIN 27.7 pg (27.0-33.0); MEAN CORPUSCULAR HGB CONC 33.1 g/dl (32.0-36.5); MEAN CORPUSCULAR VOLUME 83.7 fl (80.0-96.0); MONO # 0.6 10^3/uL (0.0-0.8); MONO % 9.6 % (2.0-8.0); NEUTROPHILS # 3.4 10^3/uL (1.5-8.5); NEUTROPHILS % 53.2 % (36.0-66.0); PLATELET COUNT, AUTOMATED 230 10^3/uL (150-450); RED BLOOD COUNT 5.45 10^6/uL (4.30-6.10); WHITE BLOOD COUNT 6.3 10^3/uL (4.0-10.0)
[2020-04-29 16:30] LABS: INR 0.98; PROTHROMBIN TIME 13.2 SECONDS (12.5-14.3)
[2020-04-29 16:31] LABS: PARTIAL THROMBOPLASTIN TIME 30.8 SECONDS (24.2-38.5)
[2020-04-29 16:42] LABS: ALT/SGPT 25 U/L (12-78); BILIRUBIN,DIRECT 0.2 MG/DL (0.0-0.2); BILIRUBIN,TOTAL 0.5 MG/DL (0.2-1.0); BLOOD UREA NITROGEN 19 MG/DL (7-18); CALCIUM LEVEL 9.3 MG/DL (8.5-10.1); CARBON DIOXIDE LEVEL 31 MEQ/L (21-32); CHLORIDE LEVEL 103 MEQ/L (98-107); CK-MB VALUE MASS 1.1 NG/ML (<3.6); CPK CREATINE PHOSPHOKINASE 142 U/L (39-308); CREATININE FOR GFR 1.12 MG/DL (0.70-1.30); GLOMERULAR FILTRATION RATE > 60.0 (>60); GLUCOSE, FASTING 97 MG/DL (70-100); MB/CK RELATIVE INDEX 0.77 (< OR =4); POTASSIUM SERUM 4.1 MEQ/L (3.5-5.1); SODIUM LEVEL 137 MEQ/L (136-145); TROPONIN I < 0.02 NG/ML (< 0.10)
--- NOTE | 2020-04-29 21:26 | REPVR ---
PROCEDURE INFORMATION: Exam: MR Head Without Contrast Exam date and time: 04/29/2020 7:50 PM Age: 29 years old Clinical indication: Numbness / parasthesia; Right TECHNIQUE: Imaging protocol: MR of the head without contrast. COMPARISON: CT Head without contrast 04/29/2020 3:23 PM FINDINGS: Brain: Normal. No acute infarct. No hemorrhage. No significant white matter disease. No edema. No mass or midline shift. Cerebral ventricles: Normal. No ventriculomegaly. Bones/joints: Unremarkable. Paranasal sinuses: Normal as visualized. No acute sinusitis. Mastoid air cells: Normal as visualized. No mastoid effusion. Orbital cavity: Unremarkable. Soft tissues: Unremarkable. IMPRESSION: No acute findings. Electronically signed by: John Eng On 04/29/2020 21:26:32 PM
[2020-04-29 22:20] VITALS: BP 128/61
--- NOTE | 2020-04-30 01:58 | ECGEPIP ---
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
== END 2020-04-29 22:23 | disposition home or self-care (01) ==
LOC: M ED 14:26
DX: R51.9 Headache, unspecified (principal); R20.2 Paresthesia of skin; F41.9 Anxiety disorder, unspecified; Z79.899 Other long term (current) drug therapy

== ENCOUNTER 2020-06-03 11:30 | Outpatient (RCR) | payer SELFPAY | END 2020-06-04 | LOC: M PT 11:30 | PROVIDERS: ATTEND Orthopaedic Surgery | DX: M54.2 Cervicalgia (principal); M54.5 Low back pain ==

== ENCOUNTER 2020-08-14 15:33 | Emergency (ER) | payer SELFPAY ==
[~2020-08-14] VITALS: Ht 182.9 cm; Wt 95.5 kg
[2020-08-14 19:46] VITALS: BP 118/71
--- NOTE | 2020-08-15 06:22 | ECGEPIP ---
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
== END 2020-08-14 19:49 | disposition home or self-care (01) ==
LOC: M ED 15:33
DX: R07.9 Chest pain, unspecified (principal)

== ENCOUNTER 2020-10-22 09:55 | Emergency (ER) | payer SELFPAY ==
[~2020-10-22] VITALS: Ht 182.9 cm; Wt 100.6 kg
--- NOTE | 2020-10-22 10:52 | REP ---
INDICATION: fall COMPARISON: None. TECHNIQUE: Four views right ankle. FINDINGS: There is no evidence of acute fracture, dislocation, or intrinsic bone disease.The ankle mortise is anatomic. IMPRESSION: No fracture or dislocation. <Electronically signed by Brandon Bowman > 10/22/20 [id number]
[2020-10-22 13:14] VITALS: BP 120/75
== END 2020-10-22 13:15 | disposition home or self-care (01) ==
LOC: M ED 09:55
DX: S93.491A Sprain of other ligament of right ankle, initial encounter (principal); X50.9XXA Other and unspecified overexertion or strenuous movements or postures, initial encounter; Y92.89 Other specified places as the place of occurrence of the external cause; Y93.67 Activity, basketball

== ENCOUNTER 2020-11-25 14:17 | Emergency (ER) | payer SELFPAY ==
[~2020-11-25] VITALS: Ht 182.9 cm; Wt 97.7 kg
[2020-11-25 14:17] VITALS: BP 121/81
--- OUTSIDE RECORDS SUMMARY | 2020-11-25 14:26 | CCD ---
Author Organization Unknown Address [address] [place] [id number] Phone [phone] Care Team Providers Care Liaison Engineer Name Role Phone Quiroga, Terry Caban Unavailable Unavailable Allergies Code Code System Name Reaction Severity Status Onset 9229 RxNorm Reglan Other Active Medications Name Status Start Date Stop Date albuterol sulfate HFA 90 mcg/actuation a erosol inhaler INHALE 2 PUFFS BY MOUTH EVERY 4 HOURS NEEDED Completed 11/22/2020 amoxicillin 875 mg-potassium clavulanate 125 mg tablet TAKE 1 TABLET BY MOUTH TWICE DAILY Completed 04/02/202004/05 cetirizine 10 mg tablet TAKE 1 TABLET BY MOUTH ONCE DAILY Completed 04/16 Lexapro 10 mg tablet take one tablet po daily Active 10/28/2019 Not available escitalopram 20 mg tablet TAKE 1 TABLET BY MOUTH ONCE DAILY Active Not a vailable fluticasone propionate 50 mcg/actuation nasal spray,suspension [place] 1 spray every day by intranasal route as needed. Completed 11/22/2020 hydroxyzine HCl 10 mg tablet Take 1 tablet po q 6 hrs prn Active 09/10/2019 Not availa ble hydroxyzine HCl 25 mg tablet TAKE 1 TO 2 TABLETS BY MOUTH ONCE DAILY NEEDED Completed 11/22/2020 loratadine 10 mg tablet TAKE 1 TABLET BY MOUTH ONCE DAILY NEEDED Active Not available lorazepam 1 mg tablet TAKE 1 TABLET BY MOUTH ONCE DAILY NEEDED . DO NOT EXCEED 1 PER 24 HOURS Completed 11/22/2020 omeprazole 20 mg capsule,delayed release TAKE 1 CAPSULE BY MOUTH IN THE MORNING ON AN EMPTY STOMACH Completed 11/22/2020 sumatriptan 25 mg tablet Take 1 tablet po at onset of migraine, repeat in 2 hrs if headache persists; MDD 2 tablets Completed 11/22/2020 trazodone 50 mg tablet TAKE 1 TABLET BY MOUTH ONCE DAILY AT BEDTIME Completed 02/02/2020 Problems Name Status Onset Date Source Adjustment Disorder with Mixed Anxiety and Depressed Mood Unknow n 09/10/2019 History Procedure by Method Unknown 09/10/2019 History Panic Disorder Unknown 09/10/2019 History Gastroesophageal Reflux Disease without Esophagitis Active 09/24/2019 Finding of Esophagus Active 09/24/2019 Panic Disorder Unknown 10/14/2019 History Chest Pain Active 10/28/2019 Cardiovascular Measurement - Finding Active 10/28/2019 Generalized Anxiety Disorder Active 12/01/2019 Psychophysiologic Insomnia Active 12/11/2019 Panic Disorder without Agoraphobia Active 12/29/2019 Body Mass Index 30+ - Obesity Active 01/07/2020 Ex ternal Gastroesophageal Reflux Disease Active 01/07/2020 External Palpitations Active 01/07/2020 External Precordial Pain Active 01/07/2020 External Electrocardiogram Abnormal Active 01/07/2020 Exter nal Elevated Blood-pressure Reading without Diagnosis of Hyperte nsion Active 02/02/2020 Covid-19 Active 11/19/2020 Procedures Date Name Performed by Tonsillectomy Information not avai lable Results Lab Results Date Name Specimen Result Interpretation Description Value Range Status Address 04/29/2020 Istat Chem8+ Panel Normal Istat HCT 45.0 % 38. 0-51.0 % [facility]: [address] [facility] Normal Istat Glucose 94 mg/dL 70-105 mg/dL [facility]: [address] [facility] Normal Istat Sodium 139 mEq/L 136-145 mEq/L [facility]: [address] [facility] Normal Istat Potassium 4.0 mEq/L 3.5-5.1 mE q/L [facility]: [address] [facility] Normal Istat Ca++ 5.1 mg/dL 4.5-5.3 mg/dL [facility]: [address] Normal Istat Chloride 99 mEq/L 98-109 mEq/L [facility]: [address] [facility] High Istat CO2 29.0 mm/L 23.0-27.0 mm/L [facility]: [address] Normal Istat BUN 19 mg/dL 8-26 mg/dL [facility]: [address] [facility] Normal Istat Creatinine 1.1 mg/dL 0.6-1.3 m g/dL [facility]: [address] [facility] 04/29/2020 CBC W/ Auto Diff Normal White Blood Count 6.3 10 4.0-10.[address] [facility]: [address] [facility] Normal Red Blood Count 5.45 10 4.30-6.[address] [facility]: [address] [facility] Normal Hemoglobin 15.1 g/dL 13.5-17.5 g/dL [facility]: [address] [facility] Normal Hematocrit 45.6 % 42.0-52.0 % [facility]: [address] [facility] Normal Mean Corpuscular Volume 83.7 fL 80.0 -96.[address] [facility]: [address] [facility] Normal Mean Corpuscular Hemoglobin 27.7 pg 27.0-33.[address] [facility]: [address] [facility] Normal Mean Corpuscular HGB Conc 33.1 g/dL 32.0-36.5 g/dL [facility]: [address] [facility] Normal Red Cell Distribution Width 13.5 % 1 1.5-14.5 % [facility]: [address] [facility] Normal Platelet Count, Automated 230 10 150 -[address] [facility]: [address] [facility] Normal Neutrophils % 53.2 % 36.0-66.0 % [facility]: [address] Normal Lymph % 33.6 % 24.0-44.0 % Final [facility]: [address] High [place] % 9.6 % 2.0-8.0 % [facility]: [address] Normal Eos % 2.7 % 0.0-3.0 % [facility]: [address] Normal Baso % 0.6 % 0.0-1.0 % [facility]: [address] Normal Immature Granulocyte % 0.3 % 0-3.0 % [facility]: [address] [place] [address] Normal Nucleated Red Blood Cell % 0.0 % 0- 0 % [facility]: [address] [facility] Normal Neutrophils # 3.4 10 1.5-8.5 10 [facility] [address] Normal Lymph # 2.1 10 1.5-5.0 10 [facility]: [address] Normal [place] # 0.6 10 0.0-0.8 10 [facility]: [address] [facility] Normal Eos # 0.2 10 0.0-0.5 10 [facility]: [address] [facility] Normal Baso # 0.0 10 0.0-0.2 10 [facility]: [address] [place] [address] 04/29/2020 PT/INR Normal Prothrombin Time 13.2 secon ds 12.5-14.[address] [facility]: [address] [place] [address] [facility]: [address] [place] [address] 04/29/2020 Partial Thromboplastin Time Normal Partial Thromboplastin Time 30.8 seconds 24.2-38.5 seconds [facility] nter: [address] [place] [address] 04/29/2020 Cardiovascular Assessment Panel, Serum Normal CPK Creatine Phosphokinase 142 U/L 39-308 U/L [facility]: [address] [place] [address] Normal CK-mb Value Mass 1.1 NG/mL <3.6 NG/m L [facility]: [address] [place] [address] Normal mb/CK Relative Index 0.77 < or =4 [facility]: [address] [place] [address] Normal Troponin I < 0.02 NG/mL < 0.10 NG/mL [facility]: [address] [place] [address] 04/29/2020 Hepatic Function Panel, Serum Normal AST/SG OT 13 U/L 7-37 U/L [facility]: [address] [facility] Normal ALT/SGPT 25 U/L 12-78 U/L [facility]: [address] Normal Alkaline Phosphatase 76 U/L 45-117 U /L [facility]: [address] [facility] Normal Bilirubin,total 0.5 mg/dL 0.2-1.0 mg /dL [facility]: [address] [facility] Normal Bilirubin,direct 0.2 mg/dL 0.0-0.2 m g/dL [facility]: [address] [facility] Normal Total Protein 7.0 gm/dL 6.4-8.2 gm/d L [facility]: [address] [place] [address] Normal Albumin 4.0 gm/dL 3.2-5.2 gm/dL Lynette l [facility]: [address] [facility] Normal Albumin/globulin Ratio 1.3 [facility]: [address] [facility] 04/29/2020 BMP, Serum or Plasma Normal Glucose, Fastin g 97 mg/dL 70-100 mg/dL [facility]: [address] [facility] High Blood Urea Nitrogen 19 mg/dL 7-18 mg /dL [facility]: [address] [facility] Normal Creatinine for GFR 1.12 mg/dL 0.70-1 .30 mg/dL [facility]: [address] [facility] Normal Glomerular Filtration Rate > 60.0 >[address] [facility]: [address] [facility] Normal Sodium Level 137 mEq/L 136-145 mEq/L [facility]: [address] [facility] Normal Potassium Serum 4.1 mEq/L 3.5-5.1 mE q/L [facility]: [address] [facility] Normal Chloride Level 103 mEq/L 98-107 mEq/ L [facility]: [address] [facility] Normal Carbon Dioxide Level 31 mEq/L 21-32 mEq/L Final [facility]: [address] Low Anion Gap 3 mEq/L 8-16 mEq/L [facility]: [address] [facility] Normal Calcium Level 9.3 mg/dL 8.5-10.1 mg/ dL Final [facility]: [address] [facility] [address] 01/09/2020 Lipid Panel, Blood High Triglycerides Lev el 314 mg/dL <150 mg/dL Final [facility]: [address] [facility] High Cholesterol Level 278 mg/dL <200 mg/ dL [facility]: [address] [facility] Low HDL Cholesterol 38 mg/dL >40 mg/dL F inal [facility]: [address] High LDL Cholesterol 177 mg/dL <100 mg/dL [facility]: [address] [facility] Normal Non-hdl-c 240 mg/dL Final [facility]: [address] High Cholesterol Risk Ratio 7.315 <5 [facility]: [address] [facility] 01/09/2020 C Reactive Protein, QN, Serum or Plasma Normal C Reactive Protein Quantitativ < 0.30 mg/dL 0.00-0.30 mg/dL [facility]: [address] 12/16/2019 Rapid Flu (A+B) Nasopharyngeal No observation re corded. [facility]: [address] [facility] [id number] 12/11/2019 SARS CoV 2 RNA (COVID-19), QL, healthcare network consultant-PCR, Respiratory Specimen Nasopharyngeal Normal Sars Cov 2 RNA not detected not detected Fi nal Past Encounters 11/22/2020 Covid-19 Terry Quiroga, RPA-C: [address] [facility] [address], [place] [address], Ph. 10/28/2020 Merlene Sadler, MEDICATION ASSISTANT: [address] [facility] [address], [place] [address], Ph. 10/07/2020 Generalized Anxiety Disorder Merlene Sadler [facility]: [address], [place] [address], Ph. 09/23/2020 Panic Disorder without Agoraphobia; Generalized Anxiety Disorder Merlene Sadler LMSW: [address], [place] [address], Ph. 09/09/2020 Panic Disorder without Agoraphobia; Generalized Anxiety Disorder Merlene Sadler MEDICATION ASSISTANT: [address], [place] [address], Ph. 08/26/2020 Generalized Anxiety Disorder Merlene Sadler LMSW: [address], [place] [address], Ph. 08/18/2020 Generalized Anxiety Disorder Merlene Sadler MEDICATION ASSISTANT: [address], [place] [address], Ph. 08/12/2020 Generalized Anxiety Disorder Merlene Sadler LMSW: [address], [place] [address], Ph. 08/12/2020 Administration of SARS-CoV-2 Antigen Vaccine Herbert Melissa MD: [address] [facility] [place] [address], Ph. 08/05/2020 Generalized Anxiety Disorder Merlene Sadler LMSW: [address], [place] [address], Ph. 07/29/2020 Generalized Anxiety Disorder Merlene Sadler LMSW: [address], [place] [address], Ph. 07/22/2020 Administration of SARS-CoV-2 Antigen Vaccine Herbert Melissa MD: [address] [facility], [place] [address], Ph. 07/22/2020 Generalized Anxiety Disorder Merlene Sadler [facility]: [address], [facility] [address], [place] [address], Ph. 07/01/2020 Generalized Anxiety Disorder; Panic Disorder without Agoraphobia Merlene Sadler [facility]: [address] [facility] [address], [place] [address], Ph. 06/22/2020 Generalized Anxiety Disorder Merlene Sadler [facility]: [address] [facility] [address], [place] [address], Ph. 06/17/2020 Generalized Anxiety Disorder; Panic Disorder without Agoraphobia Merlene Sadler [facility]: [address] [facility] [address], [place] [address], Ph. 05/06/2020 Generalized Anxiety Disorder; Panic Disorder without Agoraphobia Sharon Low LCSW-R: [address], [facility] [address], [place] [address], Ph. 05/03/2020 Skin Sensation Disturbance; Tension-type Headache; Visual Disturbance; Generalized Anxiety Disorder MADDISON AdamsC: [address], [facility] [address], [place] [address], Ph. 04/22/2020 Generalized Anxiety Disorder; Panic Disorder without Agoraphobia Sharon Low LCSW-R: [address], [facility] [address], [place] [address], Ph. 04/16/2020 Allergic Rhinitis; Gastroesophageal Reflux Disease without Esophagitis; Acute Sinusitis MADDISON AdamsC: [address], [facility] [address], [place] [address], Ph. 04/15/2020 Generalized Anxiety Disorder; Panic Disorder without Agoraphobia Sharon Low LCSW-R: [address], [facility] [address], [place] [address], Ph. 04/02/2020 Acute Sinusitis; Chest Pain Prema Sutton, RPA-C: [address], [place] [address], Ph. 03/05/2020 Generalized Anxiety Disorder; Panic Disorder without Agoraphobia Merlene Sadler [facility]: [address], [place] [address], Ph. 02/20/2020 Panic Disorder without Agoraphobia; Generalized Anxiety Disorder Merlene Sadler [facility]: [address], [place] [address], Ph. 02/02/2020 Panic Disorder without Agoraphobia; Generalized Anxiety Disorder Merlene Sadler [facility]: [address], [place] [address], Ph. 02/02/2020 Generalized Anxiety Disorder; Psychophysiologic Insomnia; Elevated Blood- pressure Reading without Diagnosis of Hypertension; Hyperlipidemia; Body Mass Index 30+ - Obesity; Obesity Terry Quiroga, RPA-C: [address], [place] [address], Ph. 01/28/2020 Panic Disorder without Agoraphobia; Generalized Anxiety Disorder Merlene Sadler [facility]: [address], [place] [address], Ph. 01/20/2020 Panic Disorder without Agoraphobia; Generalized Anxiety Disorder Merlene Sadler [facility]: [address], [place] [address], Ph. 01/16/2020 Panic Disorder without Agoraphobia; Generalized Anxiety Disorder Merlene Sadler [facility]: [address], [place] [address], Ph. 01/08/2020 Panic Disorder without Agoraphobia Merlene Sadler [facility]: [address], [facility] [address], [place] [address], Ph. 01/06/2020 Migraine without Aura; Generalized Anxiety Disorder; Allergic Rhinitis Terry Quiroga, RPA-C: [address] [facility], [facility] [address], [place] [address], Ph. 12/31/2019 Generalized Anxiety Disorder; Tension-type Headache; Chest Pain Terry Caban Quiroga, RPA-C: [address] [facility], [place] [address], Ph. 12/26/2019 Panic Disorder without Agoraphobia; Generalized Anxiety Disorder Merlene aSdler [facility]: [address] [facility], [facility] [address], [place] [address], Ph. 12/19/2019 Panic Disorder; Generalized Anxiety Disorder Merlene Sadler [facility]: [address] [facility], [facility] [address], [place] [address], Ph. 12/18/2019 Generalized Anxiety Disorder; [facility] [address] [facility], [facility] [address], [place] [address], Ph. 12/12/2019 Panic Disorder; Generalized Anxiety Disorder Merlene Sadler [facility]: [address] [facility], [facility] [address], [place] [address], Ph. 12/11/2019 Generalized Aches and Pains; Psychophysiologic Insomnia; Acute Upper Respiratory Infection Terry Caban Quiroga, RPA-C: [address], [place] [address], Ph. 12/03/2019 Panic Disorder Merlene Sadler [facility]: [address], [place] [address], Ph. 11/26/2019 Panic Disorder; Generalized Anxiety Disorder Merlene Sadler [facility]: [address] [address], Ph. Social History Tobacco Smoking Status Former Smoker Vaccine List Vaccine Type COVID-19, mRNA, LNP-S, PF, 30 mcg/0.3 mL dose .3 mL 10.3 mL Plan of Care Patient Instructions As we discussed, we will refer you to ne urology and opthamology and we will see you back in one month for a recheck. Call sooner with any concerns. Please keep your appointment with your counselor this week WE DISCUSSED YOU MAY TRY STOPPING YOU R OMEPRAZOLE FOR YOUR REFLUX SINCE IT HAS IMPROVED GREATLY. STOP YOUR CETIRIZINE AND WE WILL TRY LORATADINE FOR YOUR ALLERGIES. WE WILLL PLACE A REFERRAL TO AN ACQUISITION MARKETING MANAGER. WE WILL SEE YOU BACK IN ONE MONTH FOR YOUR MED CHECK FOR ANXIEYT Reminders Provider Appointments None recorded. Lab None recorded. Referral None recorded. Procedures None recorded. Surgeries None recorded. Imaging None recorded. Vitals 05/03/2020 01:30PM ESTABLISHED [id number] Height Weight BMI Blood Pressure 72 in 219 lbs 3.2 oz 29.7 kg/m2 123/76 mm[Hg ] 04/16/2020 11:50AM ESTABLISHED [id number] Height Weight BMI Blood Pressure 72 in 225 lbs 3.2 oz 30.5 kg/m2 119/73 mm[Hg ] 04/02/2020 10:50AM SAME DAY 20 Height Weight BMI Blood Pressure 72 in 223 lbs 6.4 oz 30.3 kg/m2 128/81 mm[Hg ] 02/02/2020 02:10PM ESTABLISHED [id number] Height Weight BMI Blood Pressure 72 in 224 lbs 12.8 oz 30.5 kg/m2 (1) 145/81 mm[Hg] (2) 127/82 mm[Hg] 01/06/2020 03:10PM SAME DAY 20 Height Weight BMI Blood Pressure 72 in 223 lbs 30.2 kg/m2 120/81 mm[Hg] 12/31/2019 09:10AM ESTABLISHED [id number] Height Weight BMI Blood Pressure 72 in 224 lbs 3.2 oz 30.4 kg/m2 130/86 mm[Hg ] 12/11/2019 03:50PM ESTABLISHED [id number] Height Weight BMI Blood Pressure 72 in 222 lbs 6 oz 30.2 kg/m2 130/85 mm[Hg] 10/28/2019 Height Weight BMI Blood Pressure 72 in 222 lbs 3.2 oz 30.24 kg/m2 134/70 mm[Hg ] 09/30/2019 Height Weight BMI Blood Pressure 72 in 221 lbs 3.2 oz 30.11 kg/m2 (1) 148/91 m m[Hg] (2) 135/91 mm[Hg] (3) 135/79 mm[Hg] 09/24/2019 Height Weight BMI Blood Pressure 72 in 221 lbs 6.4 oz 30.14 kg/m2 122/74 mm[Hg ] 09/10/2019 Height Weight BMI Blood Pressure 72 in 219 lbs 4 oz 29.84 kg/m2 118/76 mm[Hg]
--- OUTSIDE RECORDS SUMMARY | 2020-11-25 14:26 | CCD | Continuity of Care Document ---
Author Author Cristóbal VELASQUEZ Organization Unknown Address [address] [place] [address] Phone [phone] Care Team Providers Care Differential Repairer Name Role Phone [facility] [phone] Problems Description No Information Available Social History Type Date Description Comments Sex Unknown Allergies and adverse reactions Description No Information Available Medications Description No Information Available Immunizations Description No Information Available Vital Signs Description No Information Available Results Description No Information Available Procedures Description No Information Available Medical Devices Description No Information Available Encounters Description No Information Available Assessments Date Code Description Provider 11/19/2020 U07.1 Covid-19 DEDE Mendez Plan of Treatment No Information Available Functional Status Description No Information Available Mental Status Description No Information Available Referrals Description No Information Available
--- OUTSIDE RECORDS SUMMARY | 2020-11-25 14:26 | CCD ---
Author Organization Unknown Address [address] [place] [address] Phone [phone] Care Team Providers Care Wind Operations Supervisor Name Role Phone Quiroga, Terry Caban Unavailable [...] vailable fluticasone propionate 50 mcg/actuation nasal spray,suspension [place] 1 spray every day by intranasal route [...] Istat HCT 45.0 % 38. 0-51.0 % [facility]: [address] [facility] Normal Istat Glucose 94 mg/dL 70-105 mg/dL [facility]: [address] [facility] Normal Istat Sodium 139 mEq/L 136-145 mEq/L [facility]: [address] [facility] Normal Istat Potassium 4.0 mEq/L 3.5-5.1 mE q/L [facility]: [address] [facility] Normal Istat Ca++ 5.1 mg/dL 4.5-5.3 mg/dL [facility]: [address] [facility] Normal Istat Chloride 99 mEq/L 98-109 mEq/L [facility]: [address] [facility] High Istat CO2 29.0 mm/L 23.0-27.0 mm/L [facility]: [address] [facility] Normal Istat BUN 19 mg/dL 8-26 mg/dL [facility]: [address] [facility] Normal Istat Creatinine 1.1 mg/dL 0.6-1.3 m g/dL [facility]: [address] [facility] 04/29/2020 CBC W/ Auto Diff Normal White Blood Count 6.3 10 4.0-10.0 10 [facility]: [address] [facility] Normal Red Blood Count 5.45 10 4.30-6.10 10 [facility]: [address] [facility] Normal Hemoglobin 15.1 g/dL 13.5-17.5 g/dL [facility]: [address] [facility] Normal Hematocrit 45.6 % 42.0-52.0 % [facility]: [address] [facility] Normal Mean Corpuscular Volume 83.7 fL 80.0 -96.0 fL [facility]: [address] [facility] Normal Mean Corpuscular Hemoglobin 27.7 pg 27.0-33.0 pg [facility]: [address] [facility] Normal Mean Corpuscular HGB Conc 33.1 g/dL 32.0-36.5 g/dL [facility]: [address] [facility] Normal Red Cell Distribution Width 13.5 % 1 1.5-14.5 % [facility]: [address] [facility] Normal Platelet Count, Automated 230 10 150 -450 10 [facility]: [address] [facility] Normal Neutrophils % 53.2 % 36.0-66.0 % [facility]: [address] [facility] Normal Lymph % 33.6 % 24.0-44.0 % Final [facility]: [address] [facility] High [place] % 9.6 % 2.0-8.0 % [facility]: [address] [facility] Normal Eos % 2.7 % 0.0-3.0 % [facility]: [address] [facility] Normal Baso % 0.6 % 0.0-1.0 % [facility]: [address] [facility] Normal Immature Granulocyte % 0.3 % 0-3.0 % [facility]: [address] [place] [address] Normal Nucleated Red Blood Cell % 0.0 % 0- 0 % [facility]: [address] [facility] Normal Neutrophils # 3.4 10 1.5-8.5 10 [facility] [address] [facility] Normal Lymph # 2.1 10 1.5-5.0 10 [facility]: [address] [facility] Normal [place] # 0.6 10 0.0-0.8 10 [facility]: 0 [facility] Normal Eos # 0.2 10 0.0-0.5 10 [facility]: [address] [facility] Normal Baso # 0.0 10 0.0-0.2 10 [facility]: [address] [place] [address] 04/29/2020 PT/INR Normal Prothrombin Time 13.2 secon ds 12.5-14.3 seconds [facility]: [address] [place] [address] Normal Inr 0.98 [facility]: [address] [place] [address] 04/29/2020 Partial Thromboplastin Time Normal Partial Thromboplastin Time 30.8 seconds 24.2-38.[address] [facility] nter: [address] [place] [address] 04/29/2020 Cardiovascular Assessment Panel, Serum Normal CPK Creatine Phosphokinase 142 U/L 39-308 U/L [facility]: [address] [place] [address] Normal CK-mb Value Mass 1.1 NG/mL <3.6 NG/m L [facility]: [address] [place] [address] Normal mb/CK Relative Index 0.77 < or =4 [facility]: [address] [place] [address] Normal Troponin I < 0.02 NG/mL < 0.10 NG/mL [facility]: [address] [place] [address] 04/29/2020 Hepatic Function Panel, Serum Normal AST/SG OT 13 U/L 7-37 U/L [facility]: 0 [facility] Normal ALT/SGPT 25 U/L 12-78 U/L [facility]: [address] [facility] Normal Alkaline Phosphatase 76 U/L 45-117 U /L [facility]: [address] [facility] Normal Bilirubin,total 0.5 mg/dL 0.2-1.0 mg /dL [facility]: [address] [facility] Normal Bilirubin,direct 0.2 mg/dL 0.0-0.2 m g/dL [facility]: 0 [facility] Normal Total Protein 7.0 gm/dL 6.4-8.2 gm/d L [facility]: [address] [place] [address] Normal Albumin 4.0 gm/dL 3.2-5.2 gm/dL Lynette l [facility]: 0 [facility] Normal Albumin/globulin Ratio 1.3 [facility]: [address] [facility] 04/29/2020 BMP, Serum or Plasma Normal Glucose, Fastin g 97 mg/dL 70-100 mg/dL [facility]: [address] [facility] High Blood Urea Nitrogen 19 mg/dL 7-18 mg /dL [facility]: 0 [facility] Normal Creatinine for GFR 1.12 mg/dL 0.70-1 .30 mg/dL [facility]: 0 [facility] Normal Glomerular Filtration Rate > 60.0 >6 0 [facility]: [address] [facility] Normal Sodium Level 137 mEq/L 136-145 mEq/L [facility]: 0 [facility] Normal Potassium Serum 4.1 mEq/L 3.5-5.1 mE q/L [facility]: 0 [facility] Normal Chloride Level 103 mEq/L 98-107 mEq/ L [facility]: 0 [facility] Normal Carbon Dioxide Level 31 mEq/L 21-32 mEq/L Final [facility]: [address] [facility] Low Anion Gap 3 mEq/L 8-16 mEq/L [facility]: [address] [facility] Normal Calcium Level 9.3 mg/dL 8.5-10.1 mg/ dL Final [facility]: [address] [facility] 01/09/2020 Lipid Panel, Blood High Triglycerides Lev el 314 mg/dL <150 mg/dL Final [facility]: [address] [facility] High Cholesterol Level 278 mg/dL <200 mg/ dL [facility]: [address] [facility] Low HDL Cholesterol 38 mg/dL >40 mg/dL F inal [facility]: [address] [facility] High LDL Cholesterol 177 mg/dL <100 mg/dL [facility]: [address] [facility] Normal Non-hdl-c 240 mg/dL Final [facility]: [address] [facility] High Cholesterol Risk Ratio 7.315 <5 [facility]: [address] [facility] 01/09/2020 C Reactive Protein, QN, Serum or Plasma Normal C Reactive Protein Quantitativ < 0.30 mg/dL 0.00-0.30 mg/dL [facility]: [address] [facility] 12/16/2019 Rapid Flu (A+B) Nasopharyngeal No observation re corded. [facility]: [address] [facility] [address], [place] 12/11/2019 SARS CoV 2 RNA (COVID-19), QL, product support analyst-PCR, Respiratory Specimen Nasopharyngeal Normal Sars Cov 2 RNA not detected not detected Fi nal Past Encounters 11/24/2020 Panic Disorder without Agoraphobia; Generalized Anxiety Disorder Merlene Sadler [facility]: [address] [facility] [address], [place] [address], Ph. 11/22/2020 Covid-19 Terry Quiroga, RPA-C: [address] [facility] [address], [place] [address], Ph. 10/28/2020 Merlene Sadler [facility]: [address], [place] [address], Ph. 10/07/2020 Generalized Anxiety Disorder Merlene Sadler [facility]: [address], [place] [address], Ph. 09/23/2020 Panic Disorder without Agoraphobia; Generalized Anxiety Disorder Merlene Sadler LMSW: [address], [place] [address], Ph. 09/09/2020 Panic Disorder without Agoraphobia; Generalized Anxiety Disorder Merlene Sadler LMSW: [address], [place] [address], Ph. 08/26/2020 Generalized Anxiety Disorder Merlene Sadler LMSW: [address], [place] [address], Ph. 08/18/2020 Generalized Anxiety Disorder Merlene Sadler LMSW: [address], [place] [address], Ph. 08/12/2020 Generalized Anxiety Disorder Merlene Sadler [facility]: [address] [facility], [place] [address], Ph. 08/12/2020 Administration of SARS-CoV-2 Antigen Vaccine Herbert Melissa MD: [address] [facility], [place] [address], Ph. 08/05/2020 Generalized Anxiety Disorder Merlene Sadler LMSW: [address], [place] [address], Ph. 07/29/2020 Generalized Anxiety Disorder Merlene Sadler [facility]: [address], [place] [address], Ph. 07/22/2020 Administration of SARS-CoV-2 Antigen Vaccine Herbert Melissa MD: [address] [facility], [place] [address], Ph. 07/22/2020 Generalized Anxiety Disorder Merlene Sadler [facility]: [address] [facility], [facility] [address], [place] [address], Ph. 07/01/2020 Generalized Anxiety Disorder; Panic Disorder without Agoraphobia Merlene Sadler [facility]: [address] [facility], [facility] [address], [place] [address], Ph. 06/22/2020 Generalized Anxiety Disorder Merlene Sadler [facility]: [address] [facility], [facility] [address], [place] [address], Ph. 06/17/2020 Generalized Anxiety Disorder; Panic Disorder without Agoraphobia Merlene Sadler [facility]: [address] [facility], [facility] [address], [place] [address], Ph. 05/06/2020 Generalized Anxiety Disorder; Panic Disorder without Agoraphobia ARIELA TalamantesR: [address] [facility], [facility] [address], [place] [address], Ph. 05/03/2020 Skin Sensation Disturbance; Tension-type Headache; Visual Disturbance; Generalized Anxiety Disorder ANTWAN Adams: [address] [facility], [facility] [address], [place] [address], Ph. 04/22/2020 Generalized Anxiety Disorder; Panic Disorder without Agoraphobia ARIELA TalamantesR: [address] [facility], [facility] [address], [place] [address], Ph. 04/16/2020 Allergic Rhinitis; Gastroesophageal Reflux Disease without Esophagitis; Acute Sinusitis MADDISON AdamsC: [address] [facility], [facility] [address], [place] [address], Ph. 04/15/2020 Generalized Anxiety Disorder; Panic Disorder without Agoraphobia Sharon Devante, MEDIA PRODUCTION OPERATOR-R: [address], [place] [address], Ph. 04/02/2020 Acute Sinusitis; Chest Pain Prema Sutton, RPA-C: [address], [place] [address], Ph. 03/05/2020 Generalized Anxiety Disorder; Panic Disorder without Agoraphobia Merlene Sadler, [facility]: [address], [place] [address], Ph. 02/20/2020 Panic Disorder without Agoraphobia; Generalized Anxiety Disorder Merlene Sadler, [facility]: [address], [place] [address], Ph. 02/02/2020 Panic Disorder without Agoraphobia; Generalized Anxiety Disorder Merlene Sadler, [facility]: [address], [place] [address], Ph. 02/02/2020 Generalized Anxiety Disorder; Psychophysiologic Insomnia; Elevated Blood- pressure Reading without Diagnosis of Hypertension; Hyperlipidemia; Body Mass Index 30+ - Obesity; Obesity Terry Quiroga, RPA-C: [address], [place] [address], Ph. 01/28/2020 Panic Disorder without Agoraphobia; Generalized Anxiety Disorder Merlene Sadler, [facility]: [address], [place] [address], Ph. 01/20/2020 Panic Disorder without Agoraphobia; Generalized Anxiety Disorder Merlene Sadler, [facility]: [address], [place] [address], Ph. 01/16/2020 Panic Disorder without Agoraphobia; Generalized Anxiety Disorder Merlene Sadler [facility]: [address] [facility], [facility] [address], [place] [address], Ph. 01/08/2020 Panic Disorder without Agoraphobia Merlene Sadler [facility]: [address], [place] [address], Ph. 01/06/2020 Migraine without Aura; Generalized Anxiety Disorder; Allergic Rhinitis Terry Quiroga, RPA-C: [address] [facility], [place] [address], Ph. 12/31/2019 Generalized Anxiety Disorder; Tension-type Headache; Chest Pain Terry Quiroga, RPA-C: [address] [facility], [facility] [address], [place] [address], Ph. 12/26/2019 Panic Disorder without Agoraphobia; Generalized Anxiety Disorder Merlene Sadler [facility]: [address] [facility], [facility] [address], [place] [address], Ph. 12/19/2019 Panic Disorder; Generalized Anxiety Disorder Merlene Sadler [facility]: [address] [facility], [address], [place] [address], Ph. 12/18/2019 Generalized Anxiety Disorder; Panic Disorder [facility] [address] [facility], [facility] [address], [place] [address], Ph. 12/12/2019 Panic Disorder; Generalized Anxiety Disorder Merlene Sadler [facility]: [address], [place] [address], Ph. 12/11/2019 Generalized Aches and Pains; Psychophysiologic Insomnia; Acute Upper Respiratory Infection Terry Quiroga, RPA-C: [address], [place] [address], Ph. 12/03/2019 Panic Disorder Merlene Sadler [facility]: [address], [place] [address], Ph. 11/26/2019 Panic Disorder; Generalized Anxiety Disorder Merlene Doroteo [facility]: [address] [facility] [address], [place] [address], Ph. Social History Tobacco Smoking Status Former Smoker Vaccine List Vaccine Type COVID-19, mRNA, LNP-S, PF, 30 mcg/0.3 mL dose .3 mL .3 mL Plan of Care Patient Instructions As [...] WE WILLL PLACE A REFERRAL TO AN CAR RENTAL CLERK. WE WILL SEE YOU BACK IN ONE MONTH FOR YOUR MED CHECK FOR ANXIEYT Reminders Provider Appointments None recorded. Lab None recorded. Referral None recorded. Procedures None recorded. Surgeries None recorded. Imaging None recorded. Vitals 05/03/2020 01:30PM ESTABLISHED [id number] Height Weight BMI Blood Pressure 72 in 219 lbs 3.2 oz 29.7 kg/m2 123/76 mm[Hg ] 04/16/2020 11:50AM ESTABLISHED [id number] Height Weight BMI Blood Pressure 72 in 225 lbs 3.2 oz 30.5 kg/m2 119/73 mm[Hg ] 04/02/2020 10:50AM SAME DAY 20 Height Weight BMI Blood Pressure 72 in 223 lbs 6.4 oz 30.3 kg/m2 128/81 mm[Hg ] 02/02/2020 02:10PM ESTABLISHED [id number] Height Weight BMI Blood Pressure 72 in 224 lbs 12.8 oz 30.5 kg/m2 (1) 145/81 mm[Hg] (2) 127/82 mm[Hg] 01/06/2020 03:10PM SAME DAY 20 Height Weight BMI Blood Pressure 72 in 223 lbs 30.2 kg/m2 120/81 mm[Hg] 12/31/2019 09:10AM ESTABLISHED [id number] Height Weight BMI Blood Pressure 72 in 224 lbs 3.2 oz 30.4 kg/m2 130/86 mm[Hg ] 12/11/2019 03:50PM ESTABLISHED [id number] Height Weight BMI Blood Pressure 72 in [...]
--- OUTSIDE RECORDS SUMMARY | 2020-11-25 14:26 | CCD | Continuity of Care Document ---
Author Author Cristóbal VELASQUEZ Organization Unknown Address [address] [place] [address] Phone [phone] Care Team Providers Care Assembly Cleaner Name Role Phone [facility] [phone] Problems Description No Information Available Social History [...]
--- OUTSIDE RECORDS SUMMARY | 2020-11-25 14:26 | CCD | Continuity of Care Document ---
Author Author Cristóbal VELASQUEZ Organization Unknown Address [address] [place] [address] Phone [phone] Care Team Providers Care Pathologist Name Role Phone [facility] [phone] Problems Description No Information Available Social History [...]
--- OUTSIDE RECORDS SUMMARY | 2020-11-25 14:26 | CCD ---
Continuity of Care Document (CCD) Created on: 11/19/2020 Cristóbal Alejandra External Reference #: [id number] : [id number] Sex: Male Author Author Cristóbal VELASQUEZ Organization Unknown Address [address] [place] [address] Phone [phone] Care Team Providers Care Custom Tailor Name Role Phone [facility] [phone] Problems Description No Information Available Social History [...]
--- OUTSIDE RECORDS SUMMARY | 2020-11-25 14:27 | CCD ---
Author Organization Unknown Address [address] [place] [id number] Phone [phone] Care Team Providers Care System Auditor Name Role Phone Junaid Terry Arsh Unavailable Unavailable Allergies Code Code System Name Reaction Severity Status Onset 9229 RxNorm Reglan Other Active Medications Name Status Start Date Stop Date albuterol sulfate HFA 90 mcg/actuation a erosol inhaler INHALE 2 PUFFS BY MOUTH EVERY 4 HOURS NEEDED Active Not available amoxicillin 875 mg-potassium clavulanate 125 mg tablet TAKE 1 TABLET BY MOUTH TWICE DAILY Completed 04/02/202004/05 cetirizine 10 mg tablet TAKE 1 TABLET BY MOUTH ONCE DAILY Completed 04/16 Lexapro 10 mg tablet take one tablet po daily Active 10/28/2019 Not available escitalopram 20 mg tablet TAKE 1 TABLET BY MOUTH ONCE DAILY Active Not a vailable fluticasone propionate 50 mcg/actuation nasal spray,suspension [place] 1 spray every day by intranasal route as needed. Active Not available hydroxyzine HCl 10 mg tablet Take 1 tablet po q 6 hrs prn Active 09/10/2019 Not availa ble hydroxyzine HCl 25 mg tablet TAKE 1 TO 2 TABLETS BY MOUTH ONCE DAILY NEEDED Active Not available loratadine 10 mg tablet TAKE 1 TABLET [...] Reflux Disease without Esophagitis Active 09/24/2019 History Finding of Esophagus Active 09/24/2019 History Panic Disorder Unknown 10/14/2019 History Chest Pain Active 10/28/2019 History Cardiovascular Measurement - Finding Active 10/28/2019 History Generalized Anxiety Disorder Active 12/01/2019 Psychophysiologic Insomnia Active 12/11/2019 Panic Disorder without Agoraphobia Active 12/29/2019 Elevated Blood-pressure Reading without Diagnosis of Hyperte nsion Active 02/02/2020 Procedures None recorded. Results Lab Results Date Name Specimen Result Interpretation Description Value Range Status Address 04/29/2020 Istat Chem8+ Panel Normal Istat HCT 45.0 % 38. 0-51.0 % [facility]: [address] [place] [address] Normal Istat Glucose 94 mg/dL 70-105 mg/dL [facility]: [address] [place] [address] Normal Istat Sodium 139 mEq/L 136-145 mEq/L [facility]: 0 [facility] Normal Istat Potassium 4.0 mEq/L 3.5-5.1 mE q/L [facility]: 0 [facility] Normal Istat Ca++ 5.1 mg/dL 4.5-5.3 mg/dL [facility]: 0 [facility] Normal Istat Chloride 99 mEq/L 98-109 mEq/L [facility]: [address] [place] [address] High Istat CO2 29.0 mm/L 23.0-27.0 mm/L [facility]: 0 [facility] Normal Istat BUN 19 mg/dL 8-26 mg/dL [facility]: [address] [place] [address] Normal Istat Creatinine 1.1 mg/dL 0.6-1.3 m g/dL [facility]: 0 [facility] 04/29/2020 CBC W/ Auto Diff Normal White Blood Count 6.3 10 4.0-10.0 10 [facility]: 0 [facility] Normal Red Blood Count 5.45 10 4.30-6.10 10 [facility]: [address] [facility] Normal Hemoglobin 15.1 g/dL 13.5-17.5 g/dL [facility]: [address] [facility] Normal Hematocrit 45.6 % 42.0-52.0 % [facility]: [address] [facility] Normal Mean Corpuscular Volume 83.7 fL 80.0 -96.0 fL [facility]: [address] [facility] Normal Mean Corpuscular Hemoglobin 27.7 pg 27.0-33.0 pg [facility]: [address] [facility] Normal Mean Corpuscular HGB Conc 33.1 g/dL 32.0-36.5 g/dL [facility]: [address] [facility] Normal Red Cell Distribution Width 13.5 % 1 1.5-14.5 % [facility]: [address] [facility] Normal Platelet Count, Automated 230 10 150 -450 10 [facility]: [address] [facility] Normal Neutrophils % 53.2 % 36.0-66.0 % [facility]: [address] [facility] Normal Lymph % 33.6 % 24.0-44.0 % [facility]: [address] [facility] High [place] % 9.6 % 2.0-8.0 % [facility]: [address] [facility] Normal Eos % 2.7 % 0.0-3.0 % [facility]: [address] [facility] Normal Baso % 0.6 % 0.0-1.0 % [facility]: [address] [facility] Normal Immature Granulocyte % 0.3 % 0-3.0 % [facility]: [address] [facility] Normal Nucleated Red Blood Cell % 0.0 % 0- 0 % [facility]: [address] [facility] Normal Neutrophils # 3.4 10 1.5-8.5 10 [facility]: 0 [facility] Normal Lymph # 2.1 10 1.5-5.0 10 [facility]: [address] [facility] Normal Burke # 0.6 10 0.0-0.8 10 [facility]: [address] [place] [address] Normal Eos # 0.2 10 0.0-0.5 10 [facility]: [address] [place] [address] Normal Baso # 0.0 10 0.0-0.2 10 [facility]: 0 [facility] 04/29/2020 PT/INR Normal Prothrombin Time 13.2 secon ds 12.5-14.3 seconds [facility]: [address] [place] [address] Normal Inr 0.98 [facility]: [address] [place] [address] 04/29/2020 Partial Thromboplastin Time Normal Partial Thromboplastin Time 30.8 seconds 24.2-38.5 seconds [facility]ter: [address] [place] [address] 04/29/2020 Cardiovascular Assessment Panel, Serum Normal CPK Creatine Phosphokinase 142 U/L 39-308 U/L [facility]: [address] [place] [address] Normal CK-mb Value Mass 1.1 NG/mL <3.6 NG/m L [facility]: [address] [place] [address] Normal mb/CK Relative Index 0.77 < or =4 [facility]: [address] [place] [address] Normal Troponin I < 0.02 NG/mL < 0.10 NG/mL [facility]: [address] [place] [address] 04/29/2020 Hepatic Function Panel, Serum Normal AST/SG OT 13 U/L 7-37 U/L [facility]: [address] [place] [address] Normal ALT/SGPT 25 U/L 12-78 U/L [facility]: [address] [place] [address] Normal Alkaline Phosphatase 76 U/L 45-117 U /L [facility]: [address] [place] [address] Normal Bilirubin,total 0.5 mg/dL 0.2-1.0 mg /dL [facility]: 0 [facility] Normal Bilirubin,direct 0.2 mg/dL 0.0-0.2 m g/dL [facility]: [address] [facility] Normal Total Protein 7.0 gm/dL 6.4-8.2 gm/d L [facility]: [address] [facility] Normal Albumin 4.0 gm/dL 3.2-5.2 gm/dL Lynette l [facility]: [address] [facility] Normal Albumin/globulin Ratio 1.3 [facility]: 0 [facility] 04/29/2020 BMP, Serum or Plasma Normal Glucose, Fastin g 97 mg/dL 70-100 mg/dL [facility]: [address] [facility] High Blood Urea Nitrogen 19 mg/dL 7-18 mg /dL [facility]: 0 [facility] Normal Creatinine for GFR 1.12 mg/dL 0.70-1 .30 mg/dL [facility]: 0 [facility] Normal Glomerular Filtration Rate > 60.0 >6 0 [facility]: 0 [facility] Normal Sodium Level 137 mEq/L 136-145 mEq/L [facility]: 0 [facility] Normal Potassium Serum 4.1 mEq/L 3.5-5.1 mE q/L [facility]: [address] [facility] Normal Chloride Level 103 mEq/L 98-107 mEq/ L [facility]: 0 [facility] Normal Carbon Dioxide Level 31 mEq/L 21-32 mEq/L [facility]: 0 [facility] Low Anion Gap 3 mEq/L 8-16 mEq/L [facility]: 0 [facility] Normal Calcium Level 9.3 mg/dL 8.5-10.1 mg/ dL [facility]: 0 [facility] 01/09/2020 Lipid Panel, Blood High Triglycerides Lev el 314 mg/dL <150 mg/dL Final [facility]: [address] [facility] High Cholesterol Level 278 mg/dL <200 mg/ dL Final [facility]: [address] [facility] Low HDL Cholesterol 38 mg/dL >40 mg/dL F inal [facility]: [address] [facility] High LDL Cholesterol 177 mg/dL <100 mg/dL Final [facility]: [address] [facility] Normal Non-hdl-c 240 mg/dL Final [facility]: [address] [facility] High Cholesterol Risk Ratio 7.315 <5 Final [facility]: [address] [facility] 01/09/2020 C Reactive Protein, QN, Serum or Plasma Normal C Reactive Protein Quantitativ < 0.30 mg/dL 0.00-0.30 mg/dL Final [facility]: [address] [facility] 12/16/2019 Rapid Flu (A+B) Nasopharyngeal No observation re corded. [facility]: [address] [facility] [address], [place] 12/11/2019 SARS CoV 2 RNA (COVID-19), QL, rn sane-PCR, Respiratory Specimen Nasopharyngeal Normal Sars Cov 2 RNA not detected not detected Fi nal Past Encounters 10/07/2020 [facility] [address] [facility] [address], [place] [address], Ph. 09/23/2020 Panic Disorder without Agoraphobia; Generalized Anxiety Disorder [facility] [address] [facility] [address], [place] [address], Ph. 09/09/2020 Panic Disorder without Agoraphobia; Generalized Anxiety Disorder [facility] [address] [facility] [address], [place] [address], Ph. 08/26/2020 [facility]ized An[facility] [address] [facility] [address], [place] [address], Ph. 08/18/2020 Generalized Anxiety Disorder Merlene Sadler, [facility]: [address], [place] [address], Ph. 08/12/2020 Generalized Anxiety Disorder Merlene Sadler, [employer]: [address], [place] [address], Ph. 08/12/2020 SARS-CoV-2 Vaccination Herbert Melissa MD: [address] [place] [address], Ph. 08/05/2020 Generalized Anxiety Disorder Merlene Sadler [facility]: [address], [place] [address], Ph. 07/29/2020 Generalized Anxiety Disorder Merlene Sadler [facility]: [address] [facility], [place] [address], Ph. 07/22/2020 SARS-CoV-2 Vaccination Herbert Melissa MD: [address] [facility], [place] [address], Ph. 07/22/2020 Generalized Anxiety Disorder Merlene Sadler [facility]: [address], [place] [address], Ph. 07/01/2020 Generalized Anxiety Disorder; Panic Disorder without Agoraphobia Merlene Sadler [facility]: [address], [place] [address], Ph. 06/22/2020 Generalized Anxiety Disorder Merlene Sadler [employer]: [address], [place] [address], Ph. 06/17/2020 Generalized Anxiety Disorder; Panic Disorder without Agoraphobia Merlene Sadler [facility]: [address], [place] [address], Ph. 05/06/2020 Generalized Anxiety Disorder; Panic Disorder without Agoraphobia Sharon LouiseLESLY saulW-R: [address], [place] [address], Ph. 05/03/2020 Skin Sensation Disturbance; Tension-type Headache; Visual Disturbance; Generalized Anxiety Disorder Prema Sutton RPA-C: [address], [place] [address], Ph. 04/22/2020 Generalized Anxiety Disorder; Panic Disorder without Agoraphobia Sharon LouiseLESLY saulW-R: [address], [place] [address], Ph. 04/16/2020 Allergic Rhinitis; Gastroesophageal Reflux Disease without Esophagitis; Acute Sinusitis Prema Sutton RPA-C: [address], [place] [address], Ph. 04/15/2020 Generalized Anxiety Disorder; Panic Disorder without Agoraphobia SharonLESLY MccartneyW-R: [address], [place] [address], Ph. 04/02/2020 Acute Sinusitis; Chest Pain Prema Sutton RPA-C: [address], [place] [address], Ph. 03/05/2020 Generalized Anxiety Disorder; Panic Disorder without Agoraphobia Merlene Sadler [facility]: [address], [place] [address], Ph. 02/20/2020 Panic Disorder without Agoraphobia; Generalized Anxiety Disorder Merlene Sadler [facility]: [address], [place] [address], Ph. 02/02/2020 Panic Disorder without Agoraphobia; Generalized Anxiety Disorder Merlene Sadler [facility]: [address], [facility] [address], [place] [address], Ph. 02/02/2020 Generalized Anxiety Disorder; Psychophysiologic Insomnia; Elevated Blood- pressure Reading without Diagnosis of Hypertension; Hyperlipidemia; Body Mass Index 30+ - Obesity; Obesity Terry Quiroga, RPA-C: [address] [facility], [facility] [address], [place] [address], Ph. 01/28/2020 Panic Disorder without Agoraphobia; Generalized Anxiety Disorder Merlene Sadler [facility]: [address] [facility], [facility] [address], [place] [address], Ph. 01/20/2020 Panic Disorder without Agoraphobia; Generalized Anxiety Disorder Merlene Sadler [facility]: [address] [facility], [facility] [address], [place] [address], Ph. 01/16/2020 Panic Disorder without Agoraphobia; Generalized Anxiety Disorder Merlene Sadler [facility]: [address] [facility], [facility] [address], [place] [address], Ph. 01/08/2020 Panic Disorder without Agoraphobia Merlene Sadler [facility]: [address], [facility] [address], [place] [address], Ph. 01/06/2020 Migraine without Aura; Generalized Anxiety Disorder; Allergic Rhinitis Terry Quiroga, RPA-C: [address], [facility] [address], [place] [address], Ph. 12/31/2019 Generalized Anxiety Disorder; Tension-type Headache; Chest Pain Terry Quiroga RPA-C: [address], [facility] [address], [place] [address], Ph. 12/26/2019 Panic Disorder without Agoraphobia; Generalized Anxiety Disorder Merlene Sadler [facility]: [address] [facility], [facility] [address], [place] [address], Ph. 12/19/2019 Panic Disorder; Generalized Anxiety Disorder Merlene Sadler [facility]: [address] [facility], [facility] [address], [place] [address], Ph. 12/18/2019 Generalized Anxiety Disorder; Panic Disorder Merlene Sadler [facility]: [address] [facility], [facility] [address], [place] [address], Ph. 12/12/2019 Panic Disorder; Generalized Anxiety Disorder Merlene Sadler [facility]: [address] [facility], [facility] [address], [place] [address], Ph. 12/11/2019 Generalized Aches and Pains; Psychophysiologic Insomnia; Acute Upper Respiratory Infection Terry Quiroga, RPA-C: [address] [facility], [facility] [address], [place] [address], Ph. 12/03/2019 Panic Disorder Merlene Sadler [facility]: [address] [facility], [facility] [address], [place] [address], Ph. 11/26/2019 Panic Disorder; Generalized Anxiety Disorder Merlene Sadler [facility]: [address] [facility], [facility] [address], [place] [address], Ph. Social History Tobacco Smoking Status Former [...] WE WILLL PLACE A REFERRAL TO AN [employer]. WE WILL SEE YOU BACK IN ONE MONTH FOR YOUR MED CHECK FOR ANXIEYT Reminders Provider Appointments None recorded. Lab None recorded. Referral None recorded. Procedures None recorded. Surgeries None recorded. Imaging None recorded. Vitals 05/03/2020 01:30PM ESTABLISHED [id number] Height Weight BMI Blood Pressure 72 in 219 lbs 3.2 oz 29.7 kg/m2 123/76 mm[Hg ] 04/16/2020 11:50AM ESTABLISHED [id number] Height Weight BMI Blood Pressure 72 in 225 lbs 3.2 oz 30.5 kg/m2 119/73 mm[Hg ] 04/02/2020 10:50AM SAME DAY 20 Height Weight BMI Blood Pressure 72 in 223 lbs 6.4 oz 30.3 kg/m2 128/81 mm[Hg ] 02/02/2020 02:10PM ESTABLISHED [id number] Height Weight BMI Blood Pressure 72 in 224 lbs 12.8 oz 30.5 kg/m2 (1) 145/81 mm[Hg] (2) 127/82 mm[Hg] 01/06/2020 03:10PM SAME DAY 20 Height Weight BMI Blood Pressure 72 in 223 lbs 30.2 kg/m2 120/81 mm[Hg] 12/31/2019 09:10AM ESTABLISHED [id number] Height Weight BMI Blood Pressure 72 in 224 lbs 3.2 oz 30.4 kg/m2 130/86 mm[Hg ] 12/11/2019 03:50PM ESTABLISHED [id number] Height Weight BMI Blood Pressure 72 in [...]
--- OUTSIDE RECORDS SUMMARY | 2020-11-25 14:27 | CCD ---
Author Organization Unknown Address [address] [place] [id number] Phone [phone] Care Team Providers Care Assistant Coach Name Role Phone Junaid Terry Arsh Unavailable [...] vailable fluticasone propionate 50 mcg/actuation nasal spray,suspension [place] 1 spray every day by intranasal route [...] Istat HCT 45.0 % 38. 0-51.0 % [facility]: [address] [place] [address] Normal Istat Glucose 94 mg/dL 70-105 mg/dL [facility]: [address] [place] [address] Normal Istat Sodium 139 mEq/L 136-145 mEq/L [facility]: 0 [facility] Normal Istat Potassium 4.0 mEq/L 3.5-5.1 mE q/L [facility]: 0 [facility] Normal Istat Ca++ 5.1 mg/dL 4.5-5.3 mg/dL [facility]: 0 [facility] Normal Istat Chloride 99 mEq/L 98-109 mEq/L [facility]: [address] [place] [address] High Istat CO2 29.0 mm/L 23.0-27.0 mm/L [facility]: 0 [facility] Normal Istat BUN 19 mg/dL 8-26 mg/dL [facility]: [address] [place] [address] Normal Istat Creatinine 1.1 mg/dL 0.6-1.3 m g/dL [facility]: 0 [facility] 04/29/2020 CBC W/ Auto Diff Normal White Blood Count 6.3 10 4.0-10.0 10 [facility]: 0 [facility] Normal Red Blood Count 5.45 10 4.30-6.10 10 [facility]: 8[address] [facility] Normal Hemoglobin 15.1 g/dL 13.5-17.5 g/dL [facility]: 8[address] [facility] Normal Hematocrit 45.6 % 42.0-52.0 % [facility]: 8[address] [facility] Normal Mean Corpuscular Volume 83.7 fL 80.0 -96.0 fL [facility]: 8[address] [facility] Normal Mean Corpuscular Hemoglobin 27.7 pg 27.0-33.0 pg [facility]: 8[address] [facility] Normal Mean Corpuscular HGB Conc 33.1 g/dL 32.0-36.5 g/dL [facility]: 830 [facility] Normal Red Cell Distribution Width 13.5 % 1 1.5-14.5 % [facility]: 8[address] [facility] Normal Platelet Count, Automated 230 10 150 -450 10 [facility]: [address] [facility] Normal Neutrophils % 53.2 % 36.0-66.0 % [facility]: [address] [facility] Normal Lymph % 33.6 % 24.0-44.0 % [facility]: 8[address] [facility] High [place] % 9.6 % 2.0-8.0 % [facility]: [address] [facility] Normal Eos % 2.7 % 0.0-3.0 % [facility]: [address] [facility] Normal Baso % 0.6 % 0.0-1.0 % [facility]: [address] [facility] Normal Immature Granulocyte % 0.3 % 0-3.0 % [facility]: [address] [facility] Normal Nucleated Red Blood Cell % 0.0 % 0- 0 % [facility]: [address] [facility] Normal Neutrophils # 3.4 10 1.5-8.5 10 [facility]: 0 [facility] Normal Lymph # 2.1 10 1.5-5.0 10 [facility]: [address] [facility] Normal [place] # 0.6 10 0.0-0.8 10 [facility]: [address] [place] [address] Normal Eos # 0.2 10 0.0-0.5 10 [facility]: [address] [place] [address] Normal Baso # 0.0 10 0.0-0.2 10 [facility]: 0 [facility] 04/29/2020 PT/INR Normal Prothrombin Time 13.2 secon ds 12.5-14.3 seconds [facility]: [address] [place] [address] Normal Inr 0.98 [facility]: [address] [place] [address] 04/29/2020 Partial Thromboplastin Time Normal Partial Thromboplastin Time 30.8 seconds 24.2-38.5 seconds [facility]ter: [address] [place] [address] 04/29/2020 Cardiovascular Assessment Panel, Serum Normal CPK Creatine Phosphokinase 142 U/L 39-308 U/L [facility]: [address] [place] [address] Normal CK-mb Value Mass 1.1 NG/mL <3.6 NG/m L [facility]: [address] [place] [address] Normal mb/CK Relative Index 0.77 < or =4 [facility]: [address] [place] [address] Normal Troponin I < 0.02 NG/mL < 0.10 NG/mL [facility]: [address] [place] [address] 04/29/2020 Hepatic Function Panel, Serum Normal AST/SG OT 13 U/L 7-37 U/L [facility]: [address] [place] [address] Normal ALT/SGPT 25 U/L 12-78 U/L [facility]: [address] [place] [address] Normal Alkaline Phosphatase 76 U/L 45-117 U /L [facility]: [address] [place] [address] Normal Bilirubin,total 0.5 mg/dL 0.2-1.0 mg /dL [facility]: 0 [facility] Normal Bilirubin,direct 0.2 mg/dL 0.0-0.2 m g/dL [facility]: [address] [facility] Normal Total Protein 7.0 gm/dL 6.4-8.2 gm/d L [facility]: [address] [facility] Normal Albumin 4.0 gm/dL 3.2-5.2 gm/dL Lynette l [facility]: [address] [facility] Normal Albumin/globulin Ratio 1.3 [facility]: 0 [facility] 04/29/2020 BMP, Serum or Plasma Normal Glucose, Fastin g 97 mg/dL 70-100 mg/dL [facility]: 83 0 [facility] High Blood Urea Nitrogen 19 mg/dL 7-18 mg /dL [facility]: 0 [facility] Normal Creatinine for GFR 1.12 mg/dL 0.70-1 .30 mg/dL [facility]: 0 [facility] Normal Glomerular Filtration Rate > 60.0 >6 0 [facility]: 0 [facility] Normal Sodium Level 137 mEq/L 136-145 mEq/L [facility]: 0 [facility] Normal Potassium Serum 4.1 mEq/L 3.5-5.1 mE q/L [facility]: [address] [facility] Normal Chloride Level 103 mEq/L 98-107 mEq/ L [facility]: 0 [facility] Normal Carbon Dioxide Level 31 mEq/L 21-32 mEq/L [facility]: 0 [facility] Low Anion Gap 3 mEq/L 8-16 mEq/L [facility]: 0 [facility] Normal Calcium Level 9.3 mg/dL 8.5-10.1 mg/ dL [facility]: 0 [facility] 01/09/2020 Lipid Panel, Blood High Triglycerides Lev el 314 mg/dL <150 mg/dL Final [facility]: 83 0 [facility] High Cholesterol Level 278 mg/dL <200 mg/ dL Final [facility]: [address] [facility] Low HDL Cholesterol 38 mg/dL >40 mg/dL F inal [facility]: [address] [facility] High LDL Cholesterol 177 mg/dL <100 mg/dL Final [facility]: [address] [facility] Normal Non-hdl-c 240 mg/dL Final [facility]: [address] [facility] High Cholesterol Risk Ratio 7.315 <5 Final [facility]: [address] [facility] 01/09/2020 C Reactive Protein, QN, Serum or Plasma Normal C Reactive Protein Quantitativ < 0.30 mg/dL 0.00-0.30 mg/dL Final [facility]: [address] [facility] 12/16/2019 Rapid Flu (A+B) Nasopharyngeal No observation re corded. [facility]: [address] [facility] [address], [place] 12/11/2019 SARS CoV 2 RNA (COVID-19), QL, registered midwife-PCR, Respiratory Specimen Nasopharyngeal Normal Sars Cov 2 RNA not detected not detected Fi nal [facility] ([facility]): [address], [place] Past Encounters 09/23/2020 Panic Disorder without Agoraphobia; Generalized Anxiety Disorder [facility] [address] [facility] [address], [place] [address], Ph. 09/09/2020 Panic Disorder without Agoraphobia; Generalized Anxiety Disorder Merlene Sadler [facility]: [address] [facility], [facility] [address], [place] [address], Ph. 08/26/2020 Generalized Anxiety Disorder Merlene Sadler [facility]: [address] [facility], [facility] [address], [place] [address], Ph. 08/18/2020 Generalized Anxiety Disorder Merlene Sadler [facility]: [address], [place] [address], Ph. 08/12/2020 Generalized Anxiety Disorder Merlene Sadler [facility]: [address], [place] [address], Ph. 08/12/2020 SARS-CoV-2 Vaccination Herbert Melissa MD: [address] [place] [address], Ph. 08/05/2020 Generalized Anxiety Disorder Merlene Sadler, [facility]: [address], [place] [address], Ph. 07/29/2020 Generalized Anxiety Disorder Merlene Sadler [facility]: [address], [place] [address], Ph. 07/22/2020 SARS-CoV-2 Vaccination Herbert Melissa MD: [address] [facility], [place] [address], Ph. 07/22/2020 Generalized Anxiety Disorder Merlene Sadler [facility]: [address], [place] [address], Ph. 07/01/2020 Generalized Anxiety Disorder; Panic Disorder without Agoraphobia Merlene Sadler, [facility]: [address], [address], [place] [address], Ph. 06/22/2020 Generalized Anxiety Disorder Merlene Sadler [facility]: [address], [address], [place] [address], Ph. 06/17/2020 Generalized Anxiety Disorder; Panic Disorder without Agoraphobia Merlene Sadler [facility]: [address], [address], [place] [address], Ph. 05/06/2020 Generalized Anxiety Disorder; Panic Disorder without Agoraphobia Sharon Low LCSW-R: [address], [facility] [address], [place] [address], Ph. 05/03/2020 Skin Sensation Disturbance; Tension-type Headache; Visual Disturbance; Generalized Anxiety Disorder Prema Lesley RPA-C: [address] [facility], [facility] [address], [place] [address], Ph. 04/22/2020 Generalized Anxiety Disorder; Panic Disorder without Agoraphobia Sharon Louiseman, [employer]: [address] [facility], [facility] [address], [place] [address], Ph. 04/16/2020 Allergic Rhinitis; Gastroesophageal Reflux Disease without Esophagitis; Acute Sinusitis Prema Sutton RPA-C: [address] [facility], [facility] [address], [place] [address], Ph. 04/15/2020 Generalized Anxiety Disorder; Panic Disorder without Agoraphobia Sharon LouiseLESLY saulW-R: [address] [facility], [facility] [address], [place] [address], Ph. 04/02/2020 Acute Sinusitis; Chest Pain Prema Sutton RPA-C: [address] [facility], [facility] [address], [place] [address], Ph. 03/05/2020 Generalized Anxiety Disorder; Panic Disorder without Agoraphobia Merlenemarie Sadler [facility]: [address] [facility], [facility] [address], [place] [address], Ph. 02/20/2020 Panic Disorder without Agoraphobia; Generalized Anxiety Disorder Merlene Ryanjeffrey [facility]: [address] [facility], [facility] [address], [place] [address], Ph. 02/02/2020 Panic Disorder without Agoraphobia; Generalized Anxiety Disorder Merlenemarie Sadler [facility]: [address] [facility], [facility] [address], [place] [address], Ph. 02/02/2020 Generalized Anxiety Disorder; Psychophysiologic Insomnia; Elevated Blood- pressure Reading without Diagnosis of Hypertension; Hyperlipidemia; Body Mass Index 30+ - Obesity; Obesity Terry Quiroga, RPA-C: [address], [address], [place] [address], Ph. 01/28/2020 Panic Disorder without Agoraphobia; Generalized Anxiety Disorder Merlene Sadler [facility]: [address], [address], [place] [address], Ph. 01/20/2020 Panic Disorder without Agoraphobia; Generalized Anxiety Disorder Merlene Sadler [facility]: [address], [address], [place] [address], Ph. 01/16/2020 Panic Disorder without Agoraphobia; Generalized Anxiety Disorder Merlene Sadler [facility]: [address], [address], [place] [address], Ph. 01/08/2020 Panic Disorder without Agoraphobia Merlene Sadler [facility]: [address], [address], [place] [address], Ph. 01/06/2020 Migraine without Aura; Generalized Anxiety Disorder; Allergic Rhinitis Terry Quiroga, RPA-C: [address], [address], [place] [address], Ph. 12/31/2019 Generalized Anxiety Disorder; Tension-type Headache; Chest Pain Terry Quiroga, RPA-C: [address], [address], [place] [address], Ph. 12/26/2019 Panic Disorder without Agoraphobia; Generalized Anxiety Disorder Merlene Sadler [facility]: [address], [address], [place] [address], Ph. 12/19/2019 Panic Disorder; Generalized Anxiety Disorder Merlene Sadler [facility]: [address], [address], [place] [address], Ph. 12/18/2019 Generalized Anxiety Disorder; Panic Disorder Merlene Sadler [facility]: [address] [facility], [facility] [address], [place] [address], Ph. 12/12/2019 Panic Disorder; Generalized Anxiety Disorder Merlene Sadler [facility]: [address] [facility], [facility] [address], [place] [address], Ph. 12/11/2019 Generalized Aches and Pains; Psychophysiologic Insomnia; Acute Upper Respiratory Infection Terry Quiroga, RPA-C: [address] [facility], [facility] [address], [place] [address], Ph. 12/03/2019 Panic Disorder Merlene Sadler [facility]: [address] [facility], [facility] [address], [place] [address], Ph. 11/26/2019 Panic Disorder; Generalized Anxiety Disorder Merlene Sadler [facility]: [address] [facility], [facility] [address], [place] [address], Ph. Social History Tobacco Smoking Status Former Smoker Vaccine List Vaccine Type COVID-19, mRNA, LNP-S, PF, 30 mcg/0.3 mL dose 10.3 mL 10.3 mL Plan of Care Patient [...] WE WILLL PLACE A REFERRAL TO AN TEST ENG. WE WILL SEE YOU BACK IN ONE MONTH FOR YOUR MED CHECK FOR ANXIEYT Reminders Provider Appointments None recorded. Lab None recorded. Referral None recorded. Procedures None recorded. Surgeries None recorded. Imaging None recorded. Vitals 05/03/2020 01:30PM ESTABLISHED [id number] Height Weight BMI Blood Pressure 72 in 219 lbs 3.2 oz 29.7 kg/m2 123/76 mm[Hg ] 04/16/2020 11:50AM ESTABLISHED [id number] Height Weight BMI Blood Pressure 72 in 225 lbs 3.2 oz 30.5 kg/m2 119/73 mm[Hg ] 04/02/2020 10:50AM SAME DAY 20 Height Weight BMI Blood Pressure 72 in 223 lbs 6.4 oz 30.3 kg/m2 128/81 mm[Hg ] 02/02/2020 02:10PM ESTABLISHED [id number] Height Weight BMI Blood Pressure 72 in 224 lbs 12.8 oz 30.5 kg/m2 (1) 145/81 mm[Hg] (2) 127/82 mm[Hg] 01/06/2020 03:10PM SAME DAY 20 Height Weight BMI Blood Pressure 72 in 223 lbs 30.2 kg/m2 120/81 mm[Hg] 12/31/2019 09:10AM ESTABLISHED [id number] Height Weight BMI Blood Pressure 72 in 224 lbs 3.2 oz 30.4 kg/m2 130/86 mm[Hg ] 12/11/2019 03:50PM ESTABLISHED [id number] Height Weight BMI Blood Pressure 72 in [...]
--- OUTSIDE RECORDS SUMMARY | 2020-11-25 14:27 | CCD ---
Author Organization Unknown Address [address] [place] [id number] Phone [phone] Care Team Providers Care Major Assembly Inspector Name Role Phone Quiroga, Terry Arsh Unavailable Unavailable Allergies Code Code [...] vailable fluticasone propionate 50 mcg/actuation nasal spray,suspension Boyd 1 spray every day by intranasal route [...] Istat HCT 45.0 % 38. 0-51.0 % [facility]: [address] [place] [address] Normal Istat Glucose 94 mg/dL 70-105 mg/dL [facility]: [address] [place] [address] Normal Istat Sodium 139 mEq/L 136-145 mEq/L [facility]: [facility] Normal Istat Potassium 4.0 mEq/L 3.5-5.1 mE q/L [facility]: [facility] Normal Istat Ca++ 5.1 mg/dL 4.5-5.3 mg/dL [facility]: [facility] Normal Istat Chloride 99 mEq/L 98-109 mEq/L [facility]: [address] [place] [address] High Istat CO2 29.0 mm/L 23.0-27.0 mm/L [facility]: [facility] Normal Istat BUN 19 mg/dL 8-26 mg/dL [facility]: [address] [place] [address] Normal Istat Creatinine 1.1 mg/dL 0.6-1.3 m g/dL [facility]: [facility] 04/29/2020 CBC W/ Auto Diff Normal White Blood Count 6.3 10 4.0-10.0 10 [facility]: [facility] Normal Red Blood Count 5.45 10 4.30-6.10 10 [facility]: [address] [facility] Normal Hemoglobin 15.1 g/dL 13.5-17.5 g/dL [facility]: [address] [facility] Normal Hematocrit 45.6 % 42.0-52.0 % [facility]: [address] [facility] Normal Mean Corpuscular Volume 83.7 fL 80.0 -96.0 fL [facility]: [address] [facility] Normal Mean Corpuscular Hemoglobin 27.7 pg 27.0-33.0 pg [facility]: [address] [facility] Normal Mean Corpuscular HGB Conc 33.1 g/dL 32.0-36.5 g/dL [facility]: [address] [facility] Normal Red Cell Distribution Width 13.5 % 1 1.5-14.5 % [facility]: [address] [facility] Normal Platelet Count, Automated 230 10 150 -450 10 [facility]: [address] [facility] Normal Neutrophils % 53.2 % 36.0-66.0 % [facility]: [address] [facility] Normal Lymph % 33.6 % 24.0-44.0 % [facility]: [address] [facility] High [place] % 9.6 % 2.0-8.0 % [facility]: [address] [facility] Normal Eos % 2.7 % 0.0-3.0 % [facility]: [address] [facility] Normal Baso % 0.6 % 0.0-1.0 % [facility]: [address] [facility] Normal Immature Granulocyte % 0.3 % 0-3.0 % [facility]: [address] [facility] Normal Nucleated Red Blood Cell % 0.0 % 0- 0 % [facility]: [address] [facility] Normal Neutrophils # 3.4 10 1.5-8.5 10 [facility]: [facility] Normal Lymph # 2.1 10 1.5-5.0 10 [facility]: [address] [facility] Normal [place] # 0.6 10 0.0-0.8 10 [facility]: [address] [place] [address] Normal Eos # 0.2 10 0.0-0.5 10 [facility]: [address] [place] [address] Normal Baso # 0.0 10 0.0-0.2 10 [facility]: [facility] 04/29/2020 PT/INR Normal Prothrombin Time 13.2 secon ds 12.5-14.3 seconds [facility]: [address] [place] [address] Normal Inr 0.98 [facility]: [address] [place] [address] 04/29/2020 Partial Thromboplastin Time Normal Partial Thromboplastin Time 30.8 seconds 24.2-38.5 seconds [facility]ter: [address] [place] [address] 04/29/2020 Cardiovascular Assessment Panel, Serum Normal CPK Creatine Phosphokinase 142 U/L 39-308 U/L [facility]: [address] [place] [address] Normal CK-mb Value Mass 1.1 NG/mL <3.6 NG/m L [facility]: [address] [place] [address] Normal mb/CK Relative Index 0.77 < or =4 [facility]: [address] [place] [address] Normal Troponin I < 0.02 NG/mL < 0.10 NG/mL [facility]: [address] [place] [address] 04/29/2020 Hepatic Function Panel, Serum Normal AST/SG OT 13 U/L 7-37 U/L [facility]: [address] [place] [address] Normal ALT/SGPT 25 U/L 12-78 U/L [facility]: [address] [place] [address] Normal Alkaline Phosphatase 76 U/L 45-117 U /L [facility]: [address] [place] [address] Normal Bilirubin,total 0.5 mg/dL 0.2-1.0 mg /dL [facility]: [facility] Normal Bilirubin,direct 0.2 mg/dL 0.0-0.2 m g/dL [facility]: [address] [facility] Normal Total Protein 7.0 gm/dL 6.4-8.2 gm/d L [facility]: [address] [facility] Normal Albumin 4.0 gm/dL 3.2-5.2 gm/dL Lynette l [facility]: [address] [facility] Normal Albumin/globulin Ratio 1.3 [facility]: [facility] 04/29/2020 BMP, Serum or Plasma Normal Glucose, Fastin g 97 mg/dL 70-100 mg/dL [facility]: [address] [facility] High Blood Urea Nitrogen 19 mg/dL 7-18 mg /dL [facility]: [address] [facility] Normal Creatinine for GFR 1.12 mg/dL 0.70-1 .30 mg/dL [facility]: [address] [facility] Normal Glomerular Filtration Rate > 60.0 >6 0 [facility]: [address] [facility] Normal Sodium Level 137 mEq/L 136-145 mEq/L [facility]: [address] [facility] Normal Potassium Serum 4.1 mEq/L 3.5-5.1 mE q/L [facility]: [address] [facility] Normal Chloride Level 103 mEq/L 98-107 mEq/ L [facility]: [facility] Normal Carbon Dioxide Level 31 mEq/L 21-32 mEq/L [facility]: [address] [facility] Low Anion Gap 3 mEq/L 8-16 mEq/L [facility]: [facility] Normal Calcium Level 9.3 mg/dL 8.5-10.1 mg/ dL [facility]: [facility] 01/09/2020 Lipid Panel, Blood High Triglycerides Lev el 314 mg/dL <150 mg/dL Final [facility]: [address] [facility] High Cholesterol Level 278 mg/dL <200 mg/ dL Final [facility]: [address] [facility] Low HDL Cholesterol 38 mg/dL >40 mg/dL F inal [facility]: [address] [facility] High LDL Cholesterol 177 mg/dL <100 mg/dL Final [facility]: [address] [facility] Normal Non-hdl-c 240 mg/dL Final [facility]: [address] [facility] High Cholesterol Risk Ratio 7.315 <5 Final [facility]: [address] [facility] 01/09/2020 C Reactive Protein, QN, Serum or Plasma Normal C Reactive Protein Quantitativ < 0.30 mg/dL 0.00-0.30 mg/dL Final [facility]: [address] [facility] 12/16/2019 Rapid Flu (A+B) Nasopharyngeal No observation re corded. [facility]: [address] [facility] [address], [place] 12/11/2019 SARS CoV 2 RNA (COVID-19), QL, drug abuse worker-PCR, Respiratory Specimen Nasopharyngeal Normal Sars Cov 2 RNA not detected not detected Fi [facility] ([facility]): [address], [place] Past Encounters 09/09/2020 Panic Disorder without Agoraphobia; Generalized Anxiety Disorder Merlene Sadler [facility]: [address] [facility] [address], [place] [address], Ph. 08/26/2020 Generalized Anxiety Disorder Merlene Sadler, [facility]: [address] [facility] [address], [place] [address], Ph. 08/18/2020 Generalized Anxiety Disorder Merlene Sadler [facility]: [address] [facility], [facility] [address], [place] [address], Ph. 08/12/2020 Generalized Anxiety Disorder Merlene Sadler, [facility]: [address] [facility] [address], [place] [address], Ph. 08/12/2020 SARS-CoV-2 Vaccination Herbert Melissa MD: [address] [place] [address], Ph. 08/05/2020 Generalized Anxiety Disorder Merlene Sadler, [facility]: [address], [place] [address], Ph. 07/29/2020 Generalized Anxiety Disorder Merlene Sadler, [facility]: [address], [place] [address], Ph. 07/22/2020 SARS-CoV-2 Vaccination Herbert Melissa MD: [address] [place] [address], Ph. 07/22/2020 Generalized Anxiety Disorder Merlene Sadler, [facility]: [address], [place] [address], Ph. 07/01/2020 Generalized Anxiety Disorder; Panic Disorder without Agoraphobia Merlene Sadler, [facility]: [address], [place] [address], Ph. 06/22/2020 Generalized Anxiety Disorder Merlene Sadler [facility]: [address], [place] [address], Ph. 06/17/2020 Generalized Anxiety Disorder; Panic Disorder without Agoraphobia Merlene Sadler, [facility]: [address], [place] [address], Ph. 05/06/2020 Generalized Anxiety Disorder; Panic Disorder without Agoraphobia Sharon Low, [employer]: [address], [place] [address], Ph. 05/03/2020 Skin Sensation Disturbance; Tension-type Headache; Visual Disturbance; Generalized Anxiety Disorder Prema Sutton RPA[facility]C: [address] [facility], [facility] [address], [place] [address], Ph. 04/22/2020 Generalized Anxiety Disorder; Panic Disorder without Agoraphobia Sharon Low, [employer]: [address] [facility], [facility] [address], [place] [address], Ph. 04/16/2020 Allergic Rhinitis; Gastroesophageal Reflux Disease without Esophagitis; Acute Sinusitis Prema Lesley RPA-C: [address] [facility], [facility] [address], [place] [address], Ph. 04/15/2020 Generalized Anxiety Disorder; Panic Disorder without Agoraphobia Sharon Low, [employer]: [address] [facility], [facility] [address], [place] [address], Ph. 04/02/2020 Acute Sinusitis; Chest Pain Premalouisa Sutton RPA-C: [address] [facility], [facility] [address], [place] [address], Ph. 03/05/2020 Generalized Anxiety Disorder; Panic Disorder without Agoraphobia Merlene Davisjeffrey [facility]: [address] [facility], [facility] [address], [place] [address], Ph. 02/20/2020 Panic Disorder without Agoraphobia; Generalized Anxiety Disorder Merlene Ryanjeffrey [facility]: [address], [facility] [address], [place] [address], Ph. 02/02/2020 Panic Disorder without Agoraphobia; Generalized Anxiety Disorder Merlene Sadler [facility]: [address], [facility] [address], [place] [address], Ph. 02/02/2020 Generalized Anxiety Disorder; Psychophysiologic Insomnia; Elevated Blood- pressure Reading without Diagnosis of Hypertension; Hyperlipidemia; Body Mass Index 30+ - Obesity; Obesity Terry Quiroga, RPA-C: [address], [facility] [address], [place] [address], Ph. 01/28/2020 Panic Disorder without Agoraphobia; Generalized Anxiety Disorder Merlene Sadler [facility]: [address], [place] [address], Ph. 01/20/2020 Panic Disorder without Agoraphobia; Generalized Anxiety Disorder Merlene Sadler [facility]: [address], [place] [address], Ph. 01/16/2020 Panic Disorder without Agoraphobia; Generalized Anxiety Disorder Merlene Sadler LMSW: [address], [place] [address], Ph. 01/08/2020 Panic Disorder without Agoraphobia Merlene Sadler [facility]: [address] [facility], [address], [place] [address], Ph. 01/06/2020 Migraine without Aura; Generalized Anxiety Disorder; Allergic Rhinitis Terry Quiroga, RPA-C: [address], [place] [address], Ph. 12/31/2019 Generalized Anxiety Disorder; Tension-type Headache; Chest Pain Terry Quiroga, RPA-C: [address] [facility], [address], [place] [address], Ph. 12/26/2019 Panic Disorder without Agoraphobia; Generalized Anxiety Disorder Merlene Sadler [facility]: [address], [place] [address], Ph. 12/19/2019 Panic Disorder; Generalized Anxiety Disorder Merlene Sadler LMSW: [address], [place] [address], Ph. 12/18/2019 Generalized Anxiety Disorder; Panic Disorder Merlene Sadler [facility]: [address], [place] [address], Ph. 12/12/2019 Panic Disorder; Generalized Anxiety Disorder Merlene Sadler [facility]: [address] [facility], [facility] [address], [place] [address], Ph. 12/11/2019 Generalized Aches and Pains; Psychophysiologic Insomnia; Acute Upper Respiratory Infection Terry Quiroga, RPA-C: [address] [facility], [address], [place] [address], Ph. 12/03/2019 Panic Disorder Merlene Sadler [facility]: [address] [facility], [address], [place] [address], Ph. 11/26/2019 Panic Disorder; Generalized Anxiety Disorder Merlene Sadler [facility]: [address] [facility], [facility] [address], [place] [address], Ph. Social History Tobacco Smoking Status Former [...] WE WILLL PLACE A REFERRAL TO AN HISTOTECHNOLOGIST. WE WILL SEE YOU BACK IN ONE MONTH FOR YOUR MED CHECK FOR ANXIEYT Reminders Provider Appointments None recorded. Lab None recorded. Referral None recorded. Procedures None recorded. Surgeries None recorded. Imaging None recorded. Vitals 05/03/2020 01:30PM ESTABLISHED [id number] Height Weight BMI Blood Pressure 72 in 219 lbs 3.2 oz 29.7 kg/m2 123/76 mm[Hg ] 04/16/2020 11:50AM ESTABLISHED [id number] Height Weight BMI Blood Pressure 72 in 225 lbs 3.2 oz 30.5 kg/m2 119/73 mm[Hg ] 04/02/2020 10:50AM SAME DAY 20 Height Weight BMI Blood Pressure 72 in 223 lbs 6.4 oz 30.3 kg/m2 128/81 mm[Hg ] 02/02/2020 02:10PM ESTABLISHED [id number] Height Weight BMI Blood Pressure 72 in 224 lbs 12.8 oz 30.5 kg/m2 (1) 145/81 mm[Hg] (2) 127/82 mm[Hg] 01/06/2020 03:10PM SAME DAY 20 Height Weight BMI Blood Pressure 72 in 223 lbs 30.2 kg/m2 120/81 mm[Hg] 12/31/2019 09:10AM ESTABLISHED [id number] Height Weight BMI Blood Pressure 72 in 224 lbs 3.2 oz 30.4 kg/m2 130/86 mm[Hg ] 12/11/2019 03:50PM ESTABLISHED [id number] Height Weight BMI Blood Pressure 72 in [...]
--- OUTSIDE RECORDS SUMMARY | 2020-11-25 14:27 | CCD ---
Author Organization Unknown Address [address] [place] [id number] Phone [phone] Care Team Providers Care Occupational Health Nurse Manager Name Role Phone Junaid Terry Arsh Unavailable [...] vailable fluticasone propionate 50 mcg/actuation nasal spray,suspension [place] 1 spray every day by intranasal route [...] Istat HCT 45.0 % 38. 0-51.0 % [facility]: [address] [place] [address] Normal Istat Glucose 94 mg/dL 70-105 mg/dL [facility]: [address] [place] [address] Normal Istat Sodium 139 mEq/L 136-145 mEq/L [facility]: 0 [facility] Normal Istat Potassium 4.0 mEq/L 3.5-5.1 mE q/L [facility]: 0 [facility] Normal Istat Ca++ 5.1 mg/dL 4.5-5.3 mg/dL [facility]: 0 [facility] Normal Istat Chloride 99 mEq/L 98-109 mEq/L [facility]: [address] [place] [address] High Istat CO2 29.0 mm/L 23.0-27.0 mm/L [facility]: 0 [facility] Normal Istat BUN 19 mg/dL 8-26 mg/dL [facility]: [address] [place] [address] Normal Istat Creatinine 1.1 mg/dL 0.6-1.3 m g/dL [facility]: 0 [facility] 04/29/2020 CBC W/ Auto Diff Normal White Blood Count 6.3 10 4.0-10.0 10 [facility]: 0 [facility] Normal Red Blood Count 5.45 10 4.30-6.10 10 [facility]: 830 [facility] Normal Hemoglobin 15.1 g/dL 13.5-17.5 g/dL [facility]: 830 [facility] Normal Hematocrit 45.6 % 42.0-52.0 % [facility]: 8[address] [facility] Normal Mean Corpuscular Volume 83.7 fL 80.0 -96.0 fL [facility]: 830 [facility] Normal Mean Corpuscular Hemoglobin 27.7 pg 27.0-33.0 pg [facility]: 830 [facility] Normal Mean Corpuscular HGB Conc 33.1 g/dL 32.0-36.5 g/dL [facility]: 830 [facility] Normal Red Cell Distribution Width 13.5 % 1 1.5-14.5 % [facility]: 830 [facility] Normal Platelet Count, Automated 230 10 150 -450 10 [facility]: 830 [facility] Normal Neutrophils % 53.2 % 36.0-66.0 % [facility]: 830 [facility] Normal Lymph % 33.6 % 24.0-44.0 % [facility]: 830 [facility] High Schoolcraft % 9.6 % 2.0-8.0 % [facility]: 830 [facility] Normal Eos % 2.7 % 0.0-3.0 % [facility]: 8[address] [facility] Normal Baso % 0.6 % 0.0-1.0 % [facility]: 830 [facility] Normal Immature Granulocyte % 0.3 % 0-3.0 % [facility]: 830 [facility] Normal Nucleated Red Blood Cell % 0.0 % 0- 0 % [facility]: 830 [facility] Normal Neutrophils # 3.4 10 1.5-8.5 10 [facility]: 0 [facility] Normal Lymph # 2.1 10 1.5-5.0 10 [facility]: [address] [facility] Normal Schoolcraft # 0.6 10 0.0-0.8 10 [facility]: [address] [place] [address] Normal Eos # 0.2 10 0.0-0.5 10 [facility]: [address] [place] [address] Normal Baso # 0.0 10 0.0-0.2 10 [facility]: 0 [facility] 04/29/2020 PT/INR Normal Prothrombin Time 13.2 secon ds 12.5-14.3 seconds [facility]: [address] [place] [address] Normal Inr 0.98 [facility]: [address] [place] [address] 04/29/2020 Partial Thromboplastin Time Normal Partial Thromboplastin Time 30.8 seconds 24.2-38.5 seconds [facility] nter: [address] [place] [address] 04/29/2020 Cardiovascular Assessment Panel, Serum Normal CPK Creatine Phosphokinase 142 U/L 39-308 U/L [facility]: [address] [place] [address] Normal CK-mb Value Mass 1.1 NG/mL <3.6 NG/m L [facility]: [address] [place] [address] Normal mb/CK Relative Index 0.77 < or =4 [facility]: [address] [place] [address] Normal Troponin I < 0.02 NG/mL < 0.10 NG/mL [facility]: [address] [place] [address] 04/29/2020 Hepatic Function Panel, Serum Normal AST/SG OT 13 U/L 7-37 U/L [facility]: [address] [place] [address] Normal ALT/SGPT 25 U/L 12-78 U/L [facility]: [address] [place] [address] Normal Alkaline Phosphatase 76 U/L 45-117 U /L [facility]: [address] [place] [address] Normal Bilirubin,total 0.5 mg/dL 0.2-1.0 mg /dL [facility]: 0 [facility] Normal Bilirubin,direct 0.2 mg/dL 0.0-0.2 m g/dL [facility]: [address] [facility] Normal Total Protein 7.0 gm/dL 6.4-8.2 gm/d L [facility]: [address] [facility] Normal Albumin 4.0 gm/dL 3.2-5.2 gm/dL Lynette l [facility]: [address] [facility] Normal Albumin/globulin Ratio 1.3 [facility]: 0 [facility] 04/29/2020 BMP, Serum or Plasma Normal Glucose, Fastin g 97 mg/dL 70-100 mg/dL [facility]: 83 0 [facility] High Blood Urea Nitrogen 19 mg/dL 7-18 mg /dL [facility]: 0 [facility] Normal Creatinine for GFR 1.12 mg/dL 0.70-1 .30 mg/dL [facility]: 0 [facility] Normal Glomerular Filtration Rate > 60.0 >6 0 [facility]: 0 [facility] Normal Sodium Level 137 mEq/L 136-145 mEq/L [facility]: 0 [facility] Normal Potassium Serum 4.1 mEq/L 3.5-5.1 mE q/L [facility]: [address] [facility] Normal Chloride Level 103 mEq/L 98-107 mEq/ L [facility]: 0 [facility] Normal Carbon Dioxide Level 31 mEq/L 21-32 mEq/L [facility]: 0 [facility] Low Anion Gap 3 mEq/L 8-16 mEq/L [facility]: 0 [facility] Normal Calcium Level 9.3 mg/dL 8.5-10.1 mg/ dL [facility]: 0 [facility] 01/09/2020 Lipid Panel, Blood High Triglycerides Lev el 314 mg/dL <150 mg/dL Final [facility]: 83 0 [facility] High Cholesterol Level 278 mg/dL <200 mg/ dL Final [facility]: [address] [facility] Low HDL Cholesterol 38 mg/dL >40 mg/dL F inal [facility]: [address] [facility] High LDL Cholesterol 177 mg/dL <100 mg/dL Final [facility]: [address] [facility] Normal Non-hdl-c 240 mg/dL Final [facility]: 8[address] [facility] High Cholesterol Risk Ratio 7.315 <5 Final [facility]: [address] [facility] 01/09/2020 C Reactive Protein, QN, Serum or Plasma Normal C Reactive Protein Quantitativ < 0.30 mg/dL 0.00-0.30 mg/dL Final [facility]: [address] [facility] 12/16/2019 Rapid Flu (A+B) Nasopharyngeal No observation re corded. [facility]: [address] [facility] [address], [place] 12/11/2019 SARS CoV 2 RNA (COVID-19), QL, bulk filler-PCR, Respiratory Specimen Nasopharyngeal Normal Sars Cov 2 RNA not detected not detected Fi nal Past Encounters 10/28/2020 [facility] [address] [facility] [address], [place] [address], Ph. 10/07/2020 Generalized Anxiety Disorder Merlene Sadler [facility]: [address], [place] [address], Ph. 09/23/2020 Panic Disorder without Agoraphobia; Generalized Anxiety Disorder Merlene Sadler [facility]: [address], [place] [address], Ph. 09/09/2020 Panic Disorder without Agoraphobia; [facility] [address], [place] [address], Ph. 08/26/2020 Generalized Anxiety Disorder Merlene Sadler, [facility]: [address], [place] [address], Ph. 08/18/2020 Generalized Anxiety Disorder Merlene Sadler, [employer]: [address], [place] [address], Ph. 08/12/2020 Generalized Anxiety Disorder Merlene Sadler [employer]: [address], [place] [address], Ph. 08/12/2020 SARS-CoV-2 Vaccination Herbert Melissa MD: [address] [place] [address], Ph. 08/05/2020 Generalized Anxiety Disorder Merlene Sadler [facility]: [address], [place] [address], Ph. 07/29/2020 Generalized Anxiety Disorder Merlene Sadler [employer]: [address], [place] [address], Ph. 07/22/2020 SARS-CoV-2 Vaccination Herbert Melissa MD: [address] [place] [address], Ph. 07/22/2020 Generalized Anxiety Disorder Merlene Sadler [employer]: [address], [place] [address], Ph. 07/01/2020 Generalized Anxiety Disorder; Panic Disorder without Agoraphobia Merlene Sadler LMSW: [address], [place] [address], Ph. 06/22/2020 Generalized Anxiety Disorder Merlene Sadler [employer]: [address], [place] [address], Ph. 06/17/2020 Generalized Anxiety Disorder; Panic Disorder without Agoraphobia Merlene Sadler, [facility]: [address], [place] [address], Ph. 05/06/2020 Generalized Anxiety Disorder; Panic Disorder without Agoraphobia Sharon Low, [employer] COORDINATOR-R: [address], [place] [address], Ph. 05/03/2020 Skin Sensation Disturbance; Tension-type Headache; Visual Disturbance; Generalized Anxiety Disorder Prema Sutton RPA-C: [address], [place] [address], Ph. 04/22/2020 Generalized Anxiety Disorder; Panic Disorder without Agoraphobia Sharon Louiseman, [employer]UD[employer] COORDINATOR-R: [address], [place] [address], Ph. 04/16/2020 Allergic Rhinitis; Gastroesophageal Reflux Disease without Esophagitis; Acute Sinusitis Prema Sutton RPA-C: [address], [place] [address], Ph. 04/15/2020 Generalized Anxiety Disorder; Panic Disorder without Agoraphobia Sharon Louiseman, STUDY ABROAD COORDINATOR-R: [address], [place] [address], Ph. 04/02/2020 Acute Sinusitis; Chest Pain Prema Sutton RPA-C: [address], [place] [address], Ph. 03/05/2020 Generalized Anxiety Disorder; Panic Disorder without Agoraphobia Merlene Sadler, [facility]: [address], [place] [address], Ph. 02/20/2020 Panic Disorder without Agoraphobia; Generalized Anxiety Disorder Merlene Sadler, [facility]: [address], [place] [address], Ph. 02/02/2020 Panic Disorder without Agoraphobia; Generalized Anxiety Disorder Merlene Sadler [facility]: [address] [facility] [facility] [address], [place] [address], Ph. 02/02/2020 Generalized Anxiety Disorder; Psychophysiologic Insomnia; Elevated Blood- pressure Reading without Diagnosis of Hypertension; Hyperlipidemia; Body Mass Index 30+ - Obesity; Obesity Terry Quiroga, RPA-C: [address] [facility] [facility] [address], [place] [address], Ph. 01/28/2020 Panic Disorder without Agoraphobia; Generalized Anxiety Disorder Merlene Sadler [facility]: [address] [facility] [address], [place] [address], Ph. 01/20/2020 Panic Disorder without Agoraphobia; Generalized Anxiety Disorder Merlene Sadler [facility]: [address] [facility] [address], [place] [address], Ph. 01/16/2020 Panic Disorder without Agoraphobia; Generalized Anxiety Disorder Merlene Sadler [facility]: [address] [facility] [address], [place] [address], Ph. 01/08/2020 Panic Disorder without Agoraphobia Merlene Sadler [facility]: [address] [facility] [address], [place] [address], Ph. 01/06/2020 Migraine without Aura; Generalized Anxiety Disorder; Allergic Rhinitis Terry Quiroga, RPA-C: [address] [facility] [facility] [address], [place] [address], Ph. 12/31/2019 Generalized Anxiety Disorder; Tension-type Headache; Chest Pain Terry Quiroga, RPA-C: [address] [facility] [facility] [address], [place] [address], Ph. 12/26/2019 Panic Disorder without Agoraphobia; Generalized Anxiety Disorder Merlnee Sadler [facility]: [address] [facility] [facility] [address], [place] [address], Ph. 12/19/2019 Panic Disorder; Generalized Anxiety Disorder Merlene Sadler [facility]: [address] [facility] [facility] [address], [place] [address], Ph. 12/18/2019 Generalized Anxiety Disorder; Panic Disorder Merlene Sadler [facility]: [address] [facility] [address], [place] [address], Ph. 12/12/2019 Panic Disorder; Generalized Anxiety Disorder Merlene Sadler [facility]: [address] [facility] [facility] [address], [place] [address], Ph. 12/11/2019 Generalized Aches and Pains; Psychophysiologic Insomnia; Acute Upper Respiratory Infection Terry Quiroga, RPA-C: [address] [facility] [facility] [address], [place] [address], Ph. 12/03/2019 Panic Disorder Merlene Sadler [facility]: [address] [facility] [facility] [address], [place] [address], Ph. 11/26/2019 Panic Disorder; Generalized Anxiety Disorder Merlene Sadler [facility]: [address] [facility] [facility] [address], [place] [address], Ph. Social History Tobacco Smoking Status Former [...] WE WILLL PLACE A REFERRAL TO AN ARCHITECTURAL SALES CONSULTANT. WE WILL SEE YOU BACK IN ONE MONTH FOR YOUR MED CHECK FOR ANXIEYT Reminders Provider Appointments None recorded. Lab None recorded. Referral None recorded. Procedures None recorded. Surgeries None recorded. Imaging None recorded. Vitals 05/03/2020 01:30PM ESTABLISHED [id number] Height Weight BMI Blood Pressure 72 in 219 lbs 3.2 oz 29.7 kg/m2 123/76 mm[Hg ] 04/16/2020 11:50AM ESTABLISHED [id number] Height Weight BMI Blood Pressure 72 in 225 lbs 3.2 oz 30.5 kg/m2 119/73 mm[Hg ] 04/02/2020 10:50AM SAME DAY 20 Height Weight BMI Blood Pressure 72 in 223 lbs 6.4 oz 30.3 kg/m2 128/81 mm[Hg ] 02/02/2020 02:10PM ESTABLISHED [id number] Height Weight BMI Blood Pressure 72 in 224 lbs 12.8 oz 30.5 kg/m2 (1) 145/81 mm[Hg] (2) 127/82 mm[Hg] 01/06/2020 03:10PM SAME DAY 20 Height Weight BMI Blood Pressure 72 in 223 lbs 30.2 kg/m2 120/81 mm[Hg] 12/31/2019 09:10AM ESTABLISHED [id number] Height Weight BMI Blood Pressure 72 in 224 lbs 3.2 oz 30.4 kg/m2 130/86 mm[Hg ] 12/11/2019 03:50PM ESTABLISHED [id number] Height Weight BMI Blood Pressure 72 in [...]
--- OUTSIDE RECORDS SUMMARY | 2020-11-25 14:40 | CCD ---
Author Author [facility] Address Unknown Phone Unavailable Care Team Providers Care Calender Wind Up Helper Name Role Phone Arsh Melissa MD Unavailable Unavailable Arsh Melissa MD Unavailable Unavailable Arsh Melissa MD Unavailable Unavailable Arsh Melissa MD Unavailable Unavailable Arsh Melissa MD Unavailable Unavailable Arsh Melissa MD Unavailable Unavailable Arsh Melissa MD Unavailable Unavailable Arsh Melissa MD Unavailable Unavailable Arsh Melissa MD Unavailable Unavailable Arsh Melissa MD Unavailable Unavailable Arsh Melissa MD Unavailable Unavailable Arsh Melissa MD Unavailable Unavailable Arsh eMlissa MD Unavailable Unavailable Arsh Melissa MD Unavailable Unavailable Arsh Melissa MD Unavailable Unavailable Arsh Melissa MD Unavailable Unavailable Arsh Melissa MD Unavailable Unavailable Arsh Melissa MD Unavailable Unavailable Arsh Melissa MD Unavailable Unavailable Arsh Melissa MD Unavailable Unavailable Arsh Melissa MD Unavailable Unavailable Arsh Melissa MD Unavailable Unavailable Arsh Melissa MD Unavailable Unavailable Arsh Melissa MD Unavailable Unavailable Arsh Melissa MD Unavailable Unavailable Arsh Melissa MD Unavailable Unavailable Arsh Melissa MD Unavailable Unavailable Arhs Melissa MD Unavailable Unavailable Arsh Melissa MD Unavailable Unavailable Arsh Melissa MD Unavailable Unavailable Arsh Melissa MD Unavailable Unavailable Arsh Melissa MD Unavailable Unavailable Arsh Melissa MD Unavailable Unavailable Arsh Melissa MD Unavailable Unavailable Arsh Melissa MD Unavailable Unavailable Arsh Melissa MD Unavailable Unavailable Arsh Melissa MD Unavailable Unavailable Arsh Melissa MD Unavailable Unavailable Arsh Melissa MD Unavailable Unavailable Arsh Melissa MD Unavailable Unavailable Arsh Melissa MD Unavailable Unavailable Arsh Melissa MD Unavailable Unavailable Arsh Melissa MD Unavailable Unavailable Arsh Melissa MD Unavailable Unavailable Arsh Melissa MD Unavailable Unavailable Arsh Melissa MD Unavailable Unavailable Arsh Melissa MD Unavailable Unavailable Arsh Melissa MD Unavailable Unavailable Arsh Melissa MD Unavailable Unavailable Arsh Melissa MD Unavailable Unavailable Arsh Melissa MD Unavailable Unavailable Arsh Melissa MD Unavailable Unavailable Arsh Melissa MD Unavailable Unavailable Arsh Melissa MD Unavailable Unavailable Arsh Melissa MD Unavailable Unavailable Arsh Melissa MD Unavailable Unavailable Arsh Melissa MD Unavailable Unavailable Arsh Melissa MD Unavailable Unavailable Arsh Melissa MD Unavailable Unavailable Arsh Melissa MD Unavailable Unavailable Arsh Melissa MD Unavailable Unavailable Arsh Melissa MD Unavailable Unavailable Arsh Melissa MD Unavailable Unavailable Arsh Melissa MD Unavailable Unavailable Arsh Melissa MD Unavailable Unavailable Arsh Melissa MD Unavailable Unavailable Arsh Melissa MD Unavailable Unavailable Arsh Melissa MD Unavailable Unavailable Arsh Melissa MD Unavailable Unavailable Arsh Melissa MD Unavailable Unavailable Arsh Melissa MD Unavailable Unavailable Arsh Melissa MD Unavailable Unavailable Arsh Melissa MD Unavailable Unavailable Arsh Melissa MD Unavailable Unavailable Arsh Melissa MD Unavailable Unavailable Arsh Melissa MD Unavailable Unavailable Arsh Melissa MD Unavailable Unavailable Arsh Melissa MD Unavailable Unavailable Arsh Melissa MD Unavailable Unavailable Arsh Melissa MD Unavailable Unavailable Arsh Melissa MD Unavailable Unavailable Arsh Melissa MD Unavailable Unavailable Arsh Melissa MD Unavailable Unavailable Arsh Melissa MD Unavailable Unavailable Arsh Melissa MD Unavailable Unavailable Melissa, Arsh Godinez MD Unavailable Unavailable Melissa, Arsh Gdoinez MD Unavailable Unavailable Melissa, Arsh Godinez MD Unavailable Unavailable Melissa, Arsh Godinez MD Unavailable Unavailable Melissa, Arsh Godinez MD Unavailable Unavailable Melissa, Arsh Godinez MD Unavailable Unavailable Melissa, Arsh Godinez MD Unavailable Unavailable Melissa, Arsh Godinez MD Unavailable Unavailable QUIROGA, ISRAEL TERRY RPA-C [...] QUIROGA, ISRAEL TERRY RPA-C Unavailable Unavailable QUIROGA, ISREAL TERRY RPA-C Unavailable Unavailable QUIROGA, ISRAEL TERRY [...] ISRAEL TERRY RPA-C Unavailable Unavailable QUIROGA, ISRAEL ETRRY RPA-C Unavailable Unavailable QUIROGA, ISRAEL TERRY RPA-C Unavailable Unavailable QUIROGA, ISRAEL TERRY RPA-C Unavailable Unavailable QUIROGA, ISRAEL TERRY RPA-C Unavailable Unavailable QUIROGA, ISRAEL TERRY RPA-C Unavailable Unavailable QUIROGA, ISRAEL TERRY RPA-C Unavailable Unavailable LOVEShilpa MD Unavailable Unavailable LOVE E PALOMO DONAHUE Unavailable Unavailable LOVE E PALOMO DONAHUE Unavailable Unavailable LOVE E PALOMO DONAHUE Unavailable Unavailable LOVE E PALOMO DONAHUE Unavailable Unavailable LOVE E PALOMO DONAHUE Unavailable Unavailable LOVE E PALOMO DONAHUE Unavailable Unavailable LOVE E PALOMO DONAHUE Unavailable Unavailable LOVE E PALOMO DONAHUE Unavailable Unavailable LOVE E PALOMO DONAHUE Unavailable Unavailable LOVE E PALOMO DONAHUE Unavailable Unavailable LOVE E PALOMO DONAHUE Unavailable Unavailable LOVE E PALOMO DONAHUE Unavailable Unavailable LOVE E PALOMO DONAHUE Unavailable Unavailable LOVE E PALOMO DONAHUE Unavailable Unavailable LOVE E PALOMO DONAHUE Unavailable Unavailable LOVE E PALOMO DONAHUE Unavailable Unavailable LOVE E PALOMO DONAHUE Unavailable Unavailable LOVE E PALOMO DONAHUE Unavailable Unavailable LOVEShilpa MD Unavailable Unavailable LOVE E PALOMO DONAHUE Unavailable Unavailable LOVE E PALOMO DONAHUE Unavailable Unavailable LOVE E PALOMO DONAHUE Unavailable Unavailable LOVE E PALOMO DONAHUE Unavailable Unavailable LOVE E PALOMO DONAHUE Unavailable Unavailable LOVE E PALOMO DONAHUE Unavailable Unavailable LOVE E PALOMO DONAHUE Unavailable Unavailable LOVE E PALOOM DONAHUE Unavailable Unavailable LOVE E PALOMO DONAHUE Unavailable Unavailable LOVE E PALOMO DONAHUE Unavailable Unavailable LOVE E PALOMO DONAHUE Unavailable Unavailable LOVE E PALOMO DONAHUE Unavailable Unavailable LOVE E PALOMO DONAHUE Unavailable Unavailable LOVE E PALOMO DONAHUE Unavailable Unavailable LOVE E PALOMO DONAHUE Unavailable Unavailable LOVEShilpa MD Unavailable Unavailable LOVEShilpa MD Unavailable Unavailable LOVEShilpa MD Unavailable Unavailable LOVEShilpa MD Unavailable Unavailable LOVE E PALOMO DONAHUE Unavailable Unavailable LOVEShilpa MD Unavailable Unavailable LOVE E PALOMO DONAHUE Unavailable Unavailable LOVE E PALOMO DONAHUE Unavailable Unavailable LOVE E PALOMO DONAHUE Unavailable Unavailable LOVE E PALOMO DONAHUE Unavailable Unavailable LOVE E PALOMO DONAHUE Unavailable Unavailable LOVEShilpa MD Unavailable Unavailable LOVE E PALOMO DONAHUE Unavailable Unavailable LOVEShilpa MD Unavailable Unavailable LOVE E PALOMO DONAHUE Unavailable Unavailable LOVE E PALOMO DONAHUE Unavailable Unavailable LOVEShilpa MD Unavailable Unavailable LOVE, E PALOMO MD Unavailable Unavailable Shilpa LOVE MD Unavailable Unavailable Merlene Sadler Unavailable [phone] Goldsmith, Moon Ceballos MD Unavailable Unavailable Goldsmith, Moon Ceballos MD Unavailable Unavailable Goldsmith, Moon Ceballos MD Unavailable Unavailable Goldsmith, Moon Ceballos MD Unavailable Unavailable Goldsmith, Moon Ceballos MD Unavailable Unavailable Goldsmith, Moon Ceballos MD Unavailable Unavailable Goldsmith, Moon Ceballos MD Unavailable Unavailable Goldsmith, Moon Ceballos MD Unavailable Unavailable Goldsmith, Moon Ceballos MD Unavailable Unavailable Goldsmith, L Tucker DONAHUE Unavailable Unavailable Goldsmith, L Tucker DONAHUE Unavailable Unavailable Goldsmith, L Tucker DONAHUE Unavailable Unavailable Goldsmith, L Tucker DONAHUE Unavailable Unavailable Goldsmith, L Tucker DONAHUE Unavailable Unavailable Goldsmith, L Tucker DONAHUE Unavailable Unavailable Goldsmith, L Tucker DONAHUE Unavailable Unavailable Goldsmith, L Tucker DONAHUE Unavailable Unavailable Goldsmith, L Tucker DONAHUE Unavailable Unavailable Goldsmith, Moon Ceballos MD Unavailable Unavailable Goldsmith, L Tucker DONAHUE Unavailable Unavailable Goldsmith, Moon Ceballos MD Unavailable Unavailable Goldsmith, L Tucker DONAHUE Unavailable Unavailable Goldsmith, L Tucker DONAHUE Unavailable Unavailable Goldsmith, L Tucker DONAHUE Unavailable Unavailable Goldsmith, L Tucker DONAHUE Unavailable Unavailable Goldsmith, Moon Ceballos MD Unavailable Unavailable Goldsmith, L Tucker DONAHUE Unavailable Unavailable Goldsmith, L Tucker DONAHUE Unavailable Unavailable Goldsmith, Moon Ceballos MD Unavailable Unavailable Goldsmith, L Tucker DONAHUE Unavailable Unavailable Goldsmith, Moon Ceballos MD Unavailable Unavailable Goldsmith, Moon Ceballos MD Unavailable Unavailable Goldsmith, L Tucker DONAHUE Unavailable Unavailable Goldsmith, Moon Ceballos MD Unavailable Unavailable Goldsmith, Moon Ceballos MD Unavailable Unavailable Goldsmith, Moon Ceballos MD Unavailable Unavailable Goldsmith, Moon Ceballos MD Unavailable Unavailable Goldsmith, Moon Ceballos MD Unavailable Unavailable Goldsmith, Moon Ceballos MD Unavailable Unavailable Goldsmith, Moon Ceballos MD Unavailable Unavailable Goldsmith, Moon Ceballos MD Unavailable Unavailable Goldsmith, Moon Ceballos MD Unavailable Unavailable Goldsmith, Moon Ceballos MD Unavailable Unavailable Goldsmith, Moon Ceballos MD Unavailable Unavailable Goldsmith, Moon Ceballos MD Unavailable Unavailable Goldsmith, Moon Ceballos MD Unavailable Unavailable Goldsmith, Moon Ceballos MD Unavailable Unavailable Goldsmith, Moon Ceballos MD Unavailable Unavailable Goldsmith, Moon Ceballos MD Unavailable Unavailable Goldsmith, Moon Ceballos MD Unavailable Unavailable Fostveit, Sharon Unavailable Unavailable Fostveit, Sharon Unavailable Unavailable DICKERSON, CHAYO Unavailable Unavailable DICKERSON, CHAYO Unavailable Unavailable DICKERSON, CHAYO Unavailable Unavailable DICKERSON, CHAYO Unavailable Unavailable DICKERSON, CHAYO Unavailable Unavailable DICKERSON, CHAYO Unavailable Unavailable DICKERSON, CHAYO Unavailable Unavailable DICKERSON, CHAYO Unavailable Unavailable DICKERSON, CHAYO Unavailable Unavailable DICKERSON, CHAYO Unavailable Unavailable DICKERSON, CHAYO Unavailable Unavailable DICKERSON, CHAYO Unavailable Unavailable DICKERSON, CHAYO Unavailable Unavailable DICKERSON, CHAYO Unavailable Unavailable DICKERSON, CHAYO Unavailable Unavailable DICKERSON, CHAYO Unavailable Unavailable DICKERSON, CHAYO Unavailable Unavailable DICKERSON, CHAYO Unavailable Unavailable DICKERSON, CHAYO Unavailable Unavailable DICKERSON, CHAYO Unavailable Unavailable DICKERSON, CHAYO Unavailable Unavailable DICKERSON, CHAYO Unavailable Unavailable DICKERSON, CHAYO Unavailable Unavailable DICKERSON, CHAYO Unavailable Unavailable DICKERSON, CHAYO Unavailable Unavailable DICKERSON, CHAYO Unavailable Unavailable DICKERSON, CHAYO Unavailable Unavailable Maria O Ruthie DONAHUE Unavailable Unavailable Maria, O Robiah Unavailable Unavailable Maria, O Robiah Unavailable Unavailable Maria, O Ruthie DONAHUE Unavailable Unavailable Maria, O Ruthie DONAHUE Unavailable Unavailable Maria, O Ruthie DONAHUE Unavailable Unavailable Maria, O Robiah Unavailable Unavailable Maria, O Robiah Unavailable Unavailable Maria O Robiah Unavailable Unavailable Maria, O Ruthie DONAHUE Unavailable Unavailable Maria, O Robiah Unavailable Unavailable Maria, O Robiah Unavailable Unavailable Maria, O Samah Unavailable Unavailable Maria, O Robiah Unavailable Unavailable Maria, O Samah Unavailable Unavailable Maria, O Samah Unavailable Unavailable Maria, O Samah Unavailable Unavailable Maria, O Samah Unavailable Unavailable Mraia, O Samah Unavailable Unavailable Maria, O Samah Unavailable Unavailable Maria, O Robiah Unavailable Unavailable Maria, O Samah Unavailable Unavailable Maria, O Samah Unavailable Unavailable Maria, O Samah Unavailable Unavailable Maria, O Samah Unavailable Unavailable Maria, O Samah Unavailable Unavailable Maria, O Robiah MD Unavailable Unavailable Maria, O Samah MD Unavailable Unavailable Maria, O Samah MD Unavailable Unavailable Chelsea Sifuentes MD Unavailable Unavailable Chelsea Sifuentes MD Unavailable Unavailable Chelsea Sifuentes MD Unavailable Unavailable Chelsea Sifuentes MD Unavailable Unavailable Chelsea Sifuentes MD Unavailable Unavailable Chelsea Sifuentes MD Unavailable Unavailable Chelsea Sifuentes MD Unavailable Unavailable Chelsea Sifuentes MD Unavailable Unavailable Chelsea Sifuentes MD Unavailable Unavailable Chelsea Sifuentes MD Unavailable Unavailable Chelsea Sifuentes MD Unavailable Unavailable Chelsea Sifuentes MD Unavailable Unavailable Chelsea Sifuentes MD Unavailable Unavailable Chelsea Sifuentes MD Unavailable Unavailable Chelsea Sifuentes MD Unavailable Unavailable Chelsea Sifuentes MD Unavailable Unavailable Chelsea Sifuentes MD Unavailable Unavailable Chelsea Sifuentes MD Unavailable Unavailable Chelsea Sifuentes MD Unavailable Unavailable Chelsea Sifuentes MD Unavailable Unavailable Chelsea Sifuentes MD Unavailable Unavailable Chelsea Sifuentes MD Unavailable Unavailable Chelsea Sifuentes MD Unavailable Unavailable Chelsea Sifuentes MD Unavailable Unavailable Chelsea Sifuentes MD Unavailable Unavailable Chelsea Sifuentes MD Unavailable Unavailable Chelsea Sifuentes MD Unavailable Unavailable Chelsea Sifuentes MD Unavailable Unavailable Chelsea Sifuentes MD Unavailable Unavailable Chelsea Sifuentes MD Unavailable Unavailable Chelsea Sifuentes MD Unavailable Unavailable Chelsea Sifuentes MD Unavailable Unavailable Chelsea Sifuentes MD Unavailable Unavailable Chelsea Sifuentes MD Unavailable Unavailable Chelsea Sifuentes MD Unavailable Unavailable Chelsea Sifuentes MD Unavailable Unavailable Chelsea Sifuentes MD Unavailable Unavailable Chelsea Sifuentes MD Unavailable Unavailable Chelsea Sifuentes MD Unavailable Unavailable Chelsea Sifuentes MD Unavailable Unavailable Chelsea Sifuentes MD Unavailable Unavailable Chelsea Sifuentes MD Unavailable Unavailable Chelsea Sifuentes MD Unavailable Unavailable Chelsea Sifuentes MD Unavailable Unavailable Maria, O Samah MD Unavailable Unavailable Maria, O Samah MD Unavailable Unavailable Maria, O Samah MD Unavailable Unavailable Maria, O Samah MD Unavailable Unavailable Maria, O Samah MD Unavailable Unavailable Maria, O Samah MD Unavailable Unavailable Re-disclosure Warning The records that [...] is protected by Article 27-F of the [place] Public Health law. If you continue you may have access to information: Regarding HIV / AIDS; Provided by facilities licensed or operated by the [place] Office of Mental Health; or Provided by the [place] Office for People With Developmental Disabilities. If such information is present, then the following [place] mandated warning applies: This information has been [...] law may result in a fine or shelter sentence or both. A general authorization for the release of medical or other information is NOT sufficient authorization for further disc losure. Allergies and Adverse Reactions Type Description Substance Reaction Status Data Source(s ) Allergy to substance Allergy to substance Allergy to substance [facility] ([facility]) Allergy to substance Allergy to substance Allergy to substance [facility] ([facility]) Encounters Encounter Providers Location Date Indications Data Source(s ) Merlene Sadler LMSW: [address], [place] [address], Ph. Attender: Merlene Sadler [facility] Medical 11/24/2020 12:00:00 AM EDT [facility] ([facility]) Terry Quiroga, RPA-C: [address], [place] [address], Ph. Attender: TERRY QUIROGA RPA-C [facility] Medical 11/22/2020 12:00:00 AM EDT [place] ([facility]) Terry Quiroga RPA-C: [address], [place] [address], Ph. Attender: TERRY QUIROGA RPA-C [facility] Medical 11/22/2020 12:00:00 AM EDT [place] ([facility]) Merlene Sadler, [employer]: [address], [place] [address], Ph. Attender: Merlene Sadler [facility] Medical 10/28/2020 12:00:00 AM EDT [place] ([facility]) Merlene Sadler, [employer] SUPERVISOR: [address], [place] [address], Ph. Attender: Merlene Sadler [facility] Medical 10/28/2020 12:00:00 AM EDT [place] ([facility]) Merlene Sadler, [employer] SUPERVISOR: [address], [place] [address], Ph. Attender: Merlene Sadler [facility] Medical 10/28/2020 12:00:00 AM EDT [place] ([facility]) Merlene Davisjeffrey, [employer] SUPERVISOR: [address], [place] [address], Ph. Attender: Merlene Sadler [facility] Medical 10/07/2020 12:00:00 AM EDT [place] ([facility]) Merlene Sadler, [employer] SUPER[employer]OR: [address], [place] [address], Ph. Attender: Merlene Sadler [facility] Medical 10/07/2020 12:00:00 AM EDT [place] ([facility]) Merlene Sadler, [employer] SUPERVISOR: [address], [place] [address], Ph. Attender: Merlene Sadler [facility] Medical 10/07/2020 12:00:00 AM EDT [place] ([facility]) Merlene Sadler, [employer] SUPER[employer]OR: [address], [place] [address], Ph. Attender: Merlene Sadler [facility] Medical 10/07/2020 12:00:00 AM EDT [place] ([facility]) Merlene Sadler, [employer] SUPER[employer]OR: [address], [place] [address], Ph. Attender: Merlene Sadler [facility] Medical 09/23/2020 12:00:00 AM EDT [place] ([facility]) Merlene Sadler, [employer] SUPER[employer]OR: [address], [place] [address], Ph. Attender: Merlene Sadler [facility] Medical 09/23/2020 12:00:00 AM EDT [place] ([facility]) Merlene Sadler, [employer] SUPER[employer]OR: [address], [place] [address], Ph. Attender: Merlene Sadler [facility] Medical 09/23/2020 12:00:00 AM EDT [place] ([facility]) Merlene Sadler, [employer] SUPER[employer]OR: [address], [place] [address], Ph. Attender: Merlene Sadler [facility] Medical 09/23/2020 12:00:00 AM EDT [place] ([facility]) Merlene Sadler, [employer] SUPER[employer]OR: [address], [place] [address], Ph. Attender: Merlene Sadler [facility] Medical 09/23/2020 12:00:00 AM EDT [place] ([facility]) Merlene Sadler, [employer] SUPER[employer]OR: [address], [place] [address], Ph. Attender: Merlene Sadler [facility] Medical 09/09/2020 12:00:00 AM EDT [place] ([facility]) Merlene Sadler, [employer] SUPER[employer]OR: [address], [place] [address], Ph. Attender: Merlene Sadler [facility] Medical 09/09/2020 12:00:00 AM EDT [place] ([facility]) Merlene Sadler, [employer] SUPER[employer]OR: [address], [place] [address], Ph. Attender: Merlene Sadler [facility] Medical 09/09/2020 12:00:00 AM EDT [place] ([facility]) Merlene Sadler, [employer] SUPERVISOR: [address], [place] [address], Ph. Attender: Merlene Sadler [facility] Medical 09/09/2020 12:00:00 AM EDT [place] ([facility]) Merlene Sadler, [employer] SUPER[employer]OR: [address], [place] [address], Ph. Attender: Merlene Sadler [facility] Medical 09/09/2020 12:00:00 AM EDT [place] ([facility]) Merlene Sadler, [facility]: [address], [place] [address], Ph. Attender: Merlene Sadler [facility] Medical 09/09/2020 12:00:00 AM EDT [place] ([facility]) Merlene Sadler [employer]PER[employer]: [address], [place] [address], Ph. Attender: Merlene Sadler [facility] Medical 08/26/2020 12:00:00 AM EDT [place] ([facility]) Merlene Sadler, [employer] SUPER[employer]: [address], [place] [address], Ph. Attender: Merlene Sadler [facility] Medical 08/26/2020 12:00:00 AM EDT [place] ([facility]) Merlene Sadler [employer] SUPER[employer]: [address], [place] [address], Ph. Attender: Merlene Sadler [facility] Medical 08/26/2020 12:00:00 AM EDT [place] ([facility]) Merlene Sadler [employer] SUPER[employer]OR: [address], [place] [address], Ph. Attender: Merlene Sadler [facility] Medical 08/26/2020 12:00:00 AM EDT [place] ([facility]) Merlene Sadler, [employer] SUPER[employer]: [address], [place] [address], Ph. Attender: Merlene Sadler [facility] Medical 08/26/2020 12:00:00 AM EDT [place] ([facility]) Merlene Sadler, [facility]: [address], [place] [address], Ph. Attender: Merlene Sadler [facility] Medical 08/26/2020 12:00:00 AM EDT [place] ([facility]) Merlene Sadler LMSW: [address], [place] [address], Ph. Attender: Merlene Sadler [facility] Medical 08/26/2020 12:00:00 AM EDT [place] ([facility]) Merlene Sadler, [employer] SUPER[employer]: [address], [place] [address], Ph. Attender: Merlene Sadler [facility] Medical 08/18/2020 12:00:00 AM EDT [place] ([facility]) Merlene Sadler [facility]: [address], [place] [address], Ph. Attender: Merlene Sadler [facility] Medical 08/18/2020 12:00:00 AM EDT [place] ([facility]) Merlene Sadler [employer] SUPER[employer]: [address], [place] [address], Ph. Attender: Merlene Sadler [facility] Medical 08/18/2020 12:00:00 AM EDT [place] ([facility]) Merlene Sadler, [employer] SUPER[employer]: [address], [place] [address], Ph. Attender: Merlene Sadler [facility] Medical 08/18/2020 12:00:00 AM EDT [place] ([facility]) Merlene Sadler, [employer] SUPER[employer]: [address], [place] [address], Ph. Attender: Merlene Sadler [facility] [facility] Medical 08/18/2020 12:00:00 AM EDT [place] ([facility]) Merlene Sadler LMSW: [address], [place] [address], Ph. Attender: Merlene Sadler [facility] Medical 08/18/2020 12:00:00 AM EDT [place] ([facility]) Merlene Sadler, [employer]PER[employer]: [address], [place] [address], Ph. Attender: Merlene Sadler [facility] Medical 08/18/2020 12:00:00 AM EDT [place] ([facility]) Merlene Sadler, [employer]PER[employer]: [address], [place] [address], Ph. Attender: Merlene Sadler [facility] Medical 08/18/2020 12:00:00 AM EDT [place] ([facility]) Merlene Sadler, [employer]PER[employer]: [address], [place] [address], Ph. Attender: Merlene Sadler [facility] Medical 08/18/2020 12:00:00 AM EDT [place] ([facility]) Merlene Sadler, [facility]: [address], [place] [address], Ph. Attender: Merlene Sadler [facility] Medical 08/18/2020 12:00:00 AM EDT [place] ([facility]) Herbert Melissa MD: [address] [place] [address], Ph. Attender: Herbert Melissa MD [facility] Medical 08/12/2020 12:00:00 AM EDT [place] ([facility]) Merlene Sadler [facility]: [address], [place] [address], Ph. Attender: Merlene Sadler [facility] Medical 08/12/2020 12:00:00 AM EDT [place] ([facility]) Herbert Melissa MD: [address] [place] [address], Ph. Attender: Herbert Melissa MD [facility] Medical 08/12/2020 12:00:00 AM EDT [place] ([facility]) Merlene Sadler, [facility]: [address], [place] [address], Ph. Attender: Merlene Sadler [facility] Medical 08/12/2020 12:00:00 AM EDT [place] ([facility]) Herbert Melissa MD: [address] [place] [address], Ph. Attender: Herbert Melissa MD [facility] Medical 08/12/2020 12:00:00 AM EDT [place] ([facility]) Merlene Sadler [facility]: [address], [place] [address], Ph. Attender: Merlene Doroteo [facility] Medical 08/12/2020 12:00:00 AM EDT [place] ([facility]) Herbert Melissa MD: [address], [place] [address], Ph. Attender: Herbert Melissa MD [facility] Medical 08/12/2020 12:00:00 AM EDT [place] ([facility]) Merlene ELISE SadlerSW: [address], [place] [address], Ph. Attender: Merlene Sadler [facility] Medical 08/12/2020 12:00:00 AM EDT [place] ([facility]) Herbert Melissa MD: [address] [place] [address], Ph. Attender: Herbert Melissa MD [facility] Medical 08/12/2020 12:00:00 AM EDT [place] ([facility]) Merlene Sadler LMSW: [address], [place] [address], Ph. Attender: Merlene Sadler [facility] Medical 08/12/2020 12:00:00 AM EDT [place] ([facility]) Herbert Melissa MD: [address] [place] [address], Ph. Attender: Herbert Melissa MD [facility] Medical 08/12/2020 12:00:00 AM EDT [place] ([facility]) Merlene Pupillo, [employer] SUPERVISOR: [address], [place] [address], Ph. Attender: Merlene Sadler [facility] Medical 08/12/2020 12:00:00 AM EDT [place] ([facility]) Herbert Melissa MD: [address], [place] [address], Ph. Attender: Herbert Melissa MD [facility] Medical 08/12/2020 12:00:00 AM EDT [place] ([facility]) Merlene Sadler, [facility]: [address], [place] [address], Ph. Attender: Merlene Davisjeffrey [facility] Medical 08/12/2020 12:00:00 AM EDT [place] ([facility]) Herbert Melissa MD: [address] [place] [address], Ph. Attender: Herbert Melissa MD [facility] Medical 08/12/2020 12:00:00 AM EDT [place] ([facility]) Merlene Sadler, [facility]: [address], [place] [address], Ph. Attender: Merlene Davisjeffrey [facility] Medical 08/12/2020 12:00:00 AM EDT [place] ([facility]) Herbert Melissa MD: [address] [place] [address], Ph. Attender: Herbert Melissa MD [facility] Medical 08/12/2020 12:00:00 AM EDT [place] ([facility]) Merlene Sadler, [employer]PER[employer]: [address], [place] [address], Ph. Attender: Merlene Sadler [facility] Medical 08/12/2020 12:00:00 AM EDT [place] ([facility]) Herbert Melissa MD: [address] [place] [address], Ph. Attender: Herbert Melissa MD [facility] Medical 08/12/2020 12:00:00 AM EDT [place] ([facility]) Merlene Sadler, [employer]PER[employer]: [address], [place] [address], Ph. Attender: Merlene Sadler [facility] Medical 08/12/2020 12:00:00 AM EDT [place] ([facility]) Herbert Melsisa MD: [address] [place] [address], Ph. Attender: Herbert Melissa MD [facility] Medical 08/12/2020 12:00:00 AM EDT [place] ([facility]) Merlene Sadler, [facility]: [address], [place] [address], Ph. Attender: Merlene Sadler [facility] Medical 08/12/2020 12:00:00 AM EDT [place] ([facility]) Merlene Sadler, [facility]: [address], [place] [address], Ph. Attender: Merlene Sadler [facility] Medical 08/05/2020 12:00:00 AM EDT [place] ([facility]) Merlene Sadler, [employer]PER[employer]: [address], [place] [address], Ph. Attender: Merlene Sadler [facility] Medical 08/05/2020 12:00:00 AM EDT [place] ([facility]) Merlene Sadler, [employer] SUPER[employer]OR: [address], [place] [address], Ph. Attender: Merlene Sadler [facility] Medical 08/05/2020 12:00:00 AM EDT [place] ([facility]) Merlene Sadler, [employer] SUPERVISOR: [address], [place] [address], Ph. Attender: Merlene Sadler [facility] Medical 08/05/2020 12:00:00 AM EDT [place] ([facility]) Merlene Sadler, [employer] SUPERVISOR: [address], [place] [address], Ph. Attender: Merlene Sadler [facility] Medical 08/05/2020 12:00:00 AM EDT [place] ([facility]) Merlene Sadler, [employer] SUPERVISOR: [address], [place] [address], Ph. Attender: Merlene Sadler [facility] Medical 08/05/2020 12:00:00 AM EDT [place] ([facility]) Merlene Sadler, [employer] SUPERVISOR: [address], [place] [address], Ph. Attender: Merlene Sadler [facility] Medical 08/05/2020 12:00:00 AM EDT [place] ([facility]) Merlene Sadler, [employer] SUPERVISOR: [address], [place] [address], Ph. Attender: Merlene Sadler [facility] Medical 08/05/2020 12:00:00 AM EDT [place] ([facility]) Merlene Sadler, [facility]: [address], [place] [address], Ph. Attender: Merlene Sadler [facility] Medical 08/05/2020 12:00:00 AM EDT [place] ([facility]) Merlene Sadler, [employer] SUPERVISOR: [address], [place] [address], Ph. Attender: Merlene Sadler [facility] Medical 08/05/2020 12:00:00 AM EDT [place] ([facility]) Merlene Sadler, [employer] SUPERVISOR: [address], [place] [address], Ph. Attender: Merlene Sadler [facility] Medical 08/05/2020 12:00:00 AM EDT [place] ([facility]) Merlene Sadler, [employer] SUPERVISOR: [address], [place] [address], Ph. Attender: Merlene Sadler [facility] Medical 08/05/2020 12:00:00 AM EDT [place] ([facility]) Merlene Sadler [employer] SUPERVISOR: [address], [place] [address], Ph. Attender: Merlene Sadler [facility] Medical 07/29/2020 12:00:00 AM EDT [place] ([facility]) Merlene Sadler, [employer] SUPERVISOR: [address], [place] [address], Ph. Attender: Merlene Sadler [facility] Medical 07/29/2020 12:00:00 AM EDT [place] ([facility]) Merlene Sadler, [facility]: [address], [place] [address], Ph. Attender: Merlene Sadler [facility] Medical 07/29/2020 12:00:00 AM EDT [place] ([facility]) Merlene Sadler [facility]: [address], [place] [address], Ph. Attender: Merlene Sadler [facility] Medical 07/29/2020 12:00:00 AM EDT [place] ([facility]) Merlene Sadler, [facility]: [address], [place] [address], Ph. Attender: Merlene Sadler [facility] Medical 07/29/2020 12:00:00 AM EDT [place] ([facility]) Merlene Sadler, [facility]: [address], [place] [address], Ph. Attender: Merlene Sadler [facility] Medical 07/29/2020 12:00:00 AM EDT [place] ([facility]) Merlene Sadler [facility]: [address], [place] [address], Ph. Attender: Merlene Sadler [facility] Medical 07/29/2020 12:00:00 AM EDT [place] ([facility]) Merlene Sadler, [facility]: [address], [place] [address], Ph. Attender: Merlene Sadler [facility] Medical 07/29/2020 12:00:00 AM EDT [place] ([facility]) Merlene Sadler, [facility]: [address], [place] [address], Ph. Attender: Merlene Sadler [facility] Medical 07/29/2020 12:00:00 AM EDT [place] ([facility]) Merlene Sadler [employer] SUPERVISOR: [address], [place] [address], Ph. Attender: Merlene Sadler [facility] Medical 07/29/2020 12:00:00 AM EDT [place] ([facility]) Merlene Sadler, [employer] SUPERVISOR: [address], [place] [address], Ph. Attender: Merlene Sadler [facility] Medical 07/29/2020 12:00:00 AM EDT [place] ([facility]) Merlene Sadler, [employer]FU[employer] SUPERVISOR: [address], [place] [address], Ph. Attender: Merlene Sadler [facility] Medical 07/29/2020 12:00:00 AM EDT [place] ([facility]) Merlene Sadler [facility]: [address], [place] [address], Ph. Attender: Merlene Sadler [facility] Medical 07/29/2020 12:00:00 AM EDT [place] ([facility]) Merlene Sadler, [employer] SUPERVISOR: [address], [place] [address], Ph. Attender: Merlene Sadler [facility] Medical 07/22/2020 12:00:00 AM EDT [place] ([facility]) Herbert Melissa MD: [address] [place] [address], Ph. Attender: Herbert Melissa MD [facility] Medical 07/22/2020 12:00:00 AM EDT [place] ([facility]) Merlene Sadler, [facility]: [address], [place] [address], Ph. Attender: Merlenemarie Sadler [facility] Medical 07/22/2020 12:00:00 AM EDT [place] ([facility]) Herbert Melissa MD: [address] [place] [address], Ph. Attender: Herbert Melissa MD [facility] Medical 07/22/2020 12:00:00 AM EDT [place] ([facility]) Merlene Sadler [facility]: [address], [place] [address], Ph. Attender: Merlene Davisjeffrey [facility] Medical 07/22/2020 12:00:00 AM EDT [place] ([facility]) Herbert Melissa MD: [address] [place] [address], Ph. Attender: Herbert Melissa MD [facility] Medical 07/22/2020 12:00:00 AM EDT [place] ([facility]) Merlene Davisjeffrey [facility]: [address], [place] [address], Ph. Attender: Merlene Ryanjeffrey [facility] Medical 07/22/2020 12:00:00 AM EDT [place] ([facility]) Herbert Melissa MD: [address] [place] [address], Ph. Attender: Herbert Melissa MD [facility] Medical 07/22/2020 12:00:00 AM EDT [place] ([facility]) Merlene Sadler, [facility]: [address], [place] [address], Ph. Attender: Merlene Sadler [facility] Medical 07/22/2020 12:00:00 AM EDT [place] ([facility]) Herbert Melissa MD: [address] [place] [address], Ph. Attender: Herbert Melissa MD [facility] Medical 07/22/2020 12:00:00 AM EDT [place] ([facility]) Merlene Sadler [facility]: [address], [place] [address], Ph. Attender: Merlene Davisjeffrey [facility] Medical 07/22/2020 12:00:00 AM EDT [place] ([facility]) Herbert Melissa MD: [address] [place] [address], Ph. Attender: Herbert Melissa MD [facility] Medical 07/22/2020 12:00:00 AM EDT [place] ([facility]) Merlene Sadler, [facility]: [address], [place] [address], Ph. Attender: Merlene Davisjeffrey [facility] Medical 07/22/2020 12:00:00 AM EDT [place] ([facility]) Herbert Melissa MD: [address] [place] [address], Ph. Attender: Herbert Melissa MD [facility] Medical 07/22/2020 12:00:00 AM EDT [place] ([facility]) Merlene Sadler, [facility]: [address], [place] [address], Ph. Attender: Merlene Sadler [facility] Medical 07/22/2020 12:00:00 AM EDT [place] ([facility]) Herbert Melissa MD: [address] [place] [address], Ph. Attender: Herbert Melissa MD [facility] Medical 07/22/2020 12:00:00 AM EDT [place] ([facility]) Herbert Melissa MD: [address] [place] [address], Ph. Attender: Herbert Melissa MD [facility] Medical 07/22/2020 12:00:00 AM EDT [place] ([facility]) Merlene Sadler [employer]PER[employer]: [address], [place] [address], Ph. Attender: Merlene Davisjeffrey [facility] Medical 07/22/2020 12:00:00 AM EDT [place] ([facility]) Herbert Melissa MD: [address] [place] [address], Ph. Attender: Herbert Melissa MD [facility] Medical 07/22/2020 12:00:00 AM EDT [place] ([facility]) Merlene Sadler [employer] SUPER[employer]: [address], [place] [address], Ph. Attender: Merlene Sadler [facility] Medical 07/22/2020 12:00:00 AM EDT [place] ([facility]) Herbert Melissa MD: [address] [place] [address], Ph. Attender: Herbert Melissa MD [facility] Medical 07/22/2020 12:00:00 AM EDT [place] ([facility]) Merlene Sadler, [facility]: [address], [place] [address], Ph. Attender: Merlene Sadler [facility] Medical 07/22/2020 12:00:00 AM EDT [place] ([facility]) Herbert Melissa MD: [address] [place] [address], Ph. Attender: Herbert Melissa MD [facility] Medical 07/22/2020 12:00:00 AM EDT [place] ([facility]) Merlene Sadler [facility]: [address], [place] [address], Ph. Attender: Merlene Sadler [facility] Medical 07/22/2020 12:00:00 AM EDT [place] ([facility]) Merlene Sadler, [facility]: [address], [place] [address], Ph. Attender: Merlene Sadler [facility] Medical 07/22/2020 12:00:00 AM EDT [place] ([facility]) Herbert Melissa MD: [address] [place] [address], Ph. Attender: Herbert Melissa MD [facility] Medical 07/22/2020 12:00:00 AM EDT [place] ([facility]) Merlene Sadler, [facility]: [address], [place] [address], Ph. Attender: Merlene Sadler [facility] Medical 07/22/2020 12:00:00 AM EDT [place] ([facility]) Herbert Melissa MD: [address] , [place] [address], Ph. Attender: Herbert Melissa MD [facility] Medical 07/22/2020 12:00:00 AM EDT [place] ([facility]) Merlene Sadler, [employer]: [address], [place] [address], Ph. Attender: Merlene Sadler [facility] Medical 07/01/2020 12:00:00 AM EDT [place] ([facility]) Merlene Sadler, [facility]: [address], [place] [address], Ph. Attender: Merlene Sadler [facility] Medical 07/01/2020 12:00:00 AM EDT [place] ([facility]) Merlene Sadler, [facility]: [address], [place] [address], Ph. Attender: Merlene Sadler [facility] Medical 07/01/2020 12:00:00 AM EDT [place] ([facility]) Merlene Sadler, [facility]: [address], [place] [address], Ph. Attender: Merlene Sadler [facility] Medical 07/01/2020 12:00:00 AM EDT [place] ([facility]) Merlene Sadler, [facility]: [address], [place] [address], Ph. Attender: Merlene Sadler [facility] Medical 07/01/2020 12:00:00 AM EDT [place] ([facility]) Merlene Sadler, [employer]: [address], [place] [address], Ph. Attender: Merlene Sadler [facility] Medical 07/01/2020 12:00:00 AM EDT [place] ([facility]) Merlene Sadler, [employer]: [address], [place] [address], Ph. Attender: Merlene Sadler [facility] Medical 07/01/2020 12:00:00 AM EDT [place] ([facility]) Merlene Sadler, [employer]: [address], [place] [address], Ph. Attender: Merlene Sadler [facility] Medical 07/01/2020 12:00:00 AM EDT [place] ([facility]) Merlene Sadler, [employer]PER[employer]: [address], [place] [address], Ph. Attender: Merlene Sadler [facility] Medical 07/01/2020 12:00:00 AM EDT [place] ([facility]) Merlene Sadler, [employer]: [address], [place] [address], Ph. Attender: Merlene Sadler [facility] Medical 07/01/2020 12:00:00 AM EDT [place] ([facility]) Merlene Sadler, [employer]: [address], [place] [address], Ph. Attender: Merlene Sadler [facility] Medical 07/01/2020 12:00:00 AM EDT HILDA ([facility]) Merlene Sadler, [employer] SUPERVISOR: [address], [place] [address], Ph. Attender: Merlene Sadler [facility] [place] [facility] Medical 07/01/2020 12:00:00 AM EDT HILDA ([facility]) Merlene Sadler, [employer] SUPERVISOR: [address], [place] [address], Ph. Attender: Merlene Sadler [facility] Medical 07/01/2020 12:00:00 AM EDT HILDA ([facility]) Merlene Sadler, [employer] SUPERVISOR: [address], [place] [address], Ph. Attender: Merlene Sadler [facility] Medical 07/01/2020 12:00:00 AM EDT HILDA ([facility]) Merlene Sadler, [employer] SUPERVISOR: [address], [place] [address], Ph. Attender: Merlene Sadler [facility] Medical 07/01/2020 12:00:00 AM EDT HILDA ([facility] [facility]) Merlene Sadler, [employer] SUPERVISOR: [address], [place] [address], Ph. Attender: Merlene Sadler [facility] Medical 06/22/2020 12:00:00 AM EDT [place] ([facility]) Merlene Sadler, [employer] SUPERVISOR: [address], [place] [address], Ph. Attender: Merlene Sadler [facility] Medical 06/22/2020 12:00:00 AM EDT [place] ([facility]) Merlene Sadler, [employer] SUPERVISOR: [address], [place] [address], Ph. Attender: Merlene Sadler [facility] Medical 06/22/2020 12:00:00 AM EDT [place] ([facility]) Merlene Sadler, [employer] SUPERVISOR: [address], [place] [address], Ph. Attender: Merlene Sadler [facility] Medical 06/22/2020 12:00:00 AM EDT [place] ([facility]) Merlene Sadler, [employer] SUPERVISOR: [address], [place] [address], Ph. Attender: Merlene Sadler [facility] Medical 06/22/2020 12:00:00 AM EDT [place] ([facility]) Merlene Sadler, [employer] SUPERVISOR: [address], [place] [address], Ph. Attender: Merlene Sadler [facility] Medical 06/22/2020 12:00:00 AM EDT [place] ([facility]) Merlene Sadler, [employer] SUPERVISOR: [address], [place] [address], Ph. Attender: Merlene Sadler [facility] Medical 06/22/2020 12:00:00 AM EDT [place] ([facility]) Merlene Sadler, [employer] SUPERVISOR: [address], [place] [address], Ph. Attender: Merlene Sadler [facility] Medical 06/22/2020 12:00:00 AM EDT [place] ([facility]) Merlene Sadler, [employer] SUPERVISOR: [address], [place] [address], Ph. Attender: Merlene Sadler [facility] Medical 06/22/2020 12:00:00 AM EDT [place] ([facility]) Merlene Sadler, [employer] SUPERVISOR: [address], [place] [address], Ph. Attender: Merlene Sadler [facility] Medical 06/22/2020 12:00:00 AM EDT [place] ([facility]) Merlene Sadler, [employer]FU[employer] SUPERVISOR: [address], [place] [address], Ph. Attender: Merlene Sadler [facility] Medical 06/22/2020 12:00:00 AM EDT [place] ([facility]) Merlene Sadler, [employer] SUPERVISOR: [address], [place] [address], Ph. Attender: Merlene Sadler [facility] Medical 06/22/2020 12:00:00 AM EDT [place] ([facility]) Merlene Sadler, [employer] SUPERVISOR: [address], [place] [address], Ph. Attender: Merlene Sadler [facility] Medical 06/22/2020 12:00:00 AM EDT [place] ([facility]) Merlene Sadler, [employer] SUPERVISOR: [address], [place] [address], Ph. Attender: Merlene Sadler [facility] Medical 06/22/2020 12:00:00 AM EDT [place] ([facility]) Merlene Sadler, [facility]: [address], [place] [address], Ph. Attender: Merlene Sadler [facility] Medical 06/22/2020 12:00:00 AM EDT [place] ([facility]) Merlene Sadler, [employer] SUPERVISOR: [address], [place] [address], Ph. Attender: Merlene Sadler [facility] Medical 06/22/2020 12:00:00 AM EDT [place] ([facility]) Merlene Sadler, [employer] SUPERVISOR: [address], [place] [address], Ph. Attender: Merlene Sadler [facility] Medical 06/17/2020 12:00:00 AM EDT [place] ([facility]) Merlene Sadler, [employer] SUPERVISOR: [address], [place] [address], Ph. Attender: Merlene Sadler [facility] Medical 06/17/2020 12:00:00 AM EDT [place] ([facility]) Merlene Sadler, [employer] SUPERVISOR: [address], [place] [address], Ph. Attender: Merlene Sadler [facility] Medical 06/17/2020 12:00:00 AM EDT [place] ([facility]) Merlene Sadler, [employer] SUPERVISOR: [address], [place] [address], Ph. Attender: Merlene Sadler [facility] Medical 06/17/2020 12:00:00 AM EDT [place] ([facility]) Merlene Sadler, [facility]: [address], [place] [address], Ph. Attender: Merlene Sadler [facility] Medical 06/17/2020 12:00:00 AM EDT [place] ([facility]) Merlene Sadler, [employer] SUPERVISOR: [address], [place] [address], Ph. Attender: Merlene Sadler [facility] Medical 06/17/2020 12:00:00 AM EDT [place] ([facility]) Merlene Sadler, [employer] SUPERVISOR: [address], [place] [address], Ph. Attender: Merlene Sadler [facility] Medical 06/17/2020 12:00:00 AM EDT [place] ([facility]) Merlene Sadler, [employer] SUPERVISOR: [address], [place] [address], Ph. Attender: Merlene Sadler [facility] Medical 06/17/2020 12:00:00 AM EDT [place] ([facility]) Merlene Sadler RE[employer] SUPERVISOR: [address], [place] [address], Ph. Attender: Merlene Sadler [facility] Medical 06/17/2020 12:00:00 AM EDT [place] ([facility]) Merlene Sadler, [employer]FU[employer] SUPERVISOR: [address], [place] [address], Ph. Attender: Merlene Sadler [facility] Medical 06/17/2020 12:00:00 AM EDT [place] ([facility]) Merlene Sadler, [facility]: [address], [place] [address], Ph. Attender: Merlene Sadler [facility] Medical 06/17/2020 12:00:00 AM EDT [place] ([facility]) Merlene Sadler RE[employer] SUPERVISOR: [address], [place] [address], Ph. Attender: Merlene Sadler [facility] Medical 06/17/2020 12:00:00 AM EDT [place] ([facility]) Merlene Sadler, [facility]: [address], [place] [address], Ph. Attender: Merlene Sadler [facility] Medical 06/17/2020 12:00:00 AM EDT [place] ([facility]) Merlene Sadler, [facility]: [address], [place] [address], Ph. Attender: Merlene Sadler [facility] Medical 06/17/2020 12:00:00 AM EDT [place] ([facility]) Merlene Sadler [facility]: [address], [place] [address], Ph. Attender: Merlene Sadler [facility] Medical 06/17/2020 12:00:00 AM EDT [place] ([facility]) Merlene Sadler, [employer] SUPERVISOR: [address], [place] [address], Ph. Attender: Merlene Sadler [facility] Medical 06/17/2020 12:00:00 AM EDT [place] ([facility]) Merlene Sadler, [employer] SUPERVISOR: [address], [place] [address], Ph. Attender: Merlene Sadler [facility] Medical 06/17/2020 12:00:00 AM EDT [place] ([facility]) Outpatient Attender: Ruthie Sifuentes MD Main office - [facility] 05/20/2020 08:30:00 AM EDT [facility] ([facility]) OFFICE OUTPATIENT NEW 30 MINUTES Attender: Tucker Goldsmith MD Physic al Therapy 05/14/2020 09:30:00 AM EDT MEDJUAN RAMON ([facility]) LESLY TalamantesW-R: [address], [place] [address], Ph. Attender: Sharon Bautista [facility] Medical 05/06/2020 12:00:00 AM EDT [place] ([facility]) LESLY TalamantesW-R: [address], [place] [address], Ph. Attender: Sharon Bautista [facility] Medical 05/06/2020 12:00:00 AM EDT [place] ([facility]) LESLY TalamantesW-R: [address], [place] [address], Ph. Attender: Sharon Bautista [facility] Medical 05/06/2020 12:00:00 AM EDT [place] ([facility]) LESLY TalamantesW-R: [address], [place] [address], Ph. Attender: Sharon Bautista [facility] Medical 05/06/2020 12:00:00 AM EDT [place] ([facility]) LESLY TalamantesW-R: [address], [place] [address], Ph. Attender: Sharon Megagueromarilyalan [facility] Medical 05/06/2020 12:00:00 AM EDT [place] ([facility]) LESLY TalamantesW-R: [address], [place] [address], Ph. Attender: Sharon Westmarilyalan [facility] Medical 05/06/2020 12:00:00 AM EDT [place] ([facility]) LESLY TalamantesW-R: [address], [place] [address], Ph. Attender: Sharon Bautista [facility] Medical 05/06/2020 12:00:00 AM EDT [place] ([facility]) LESLY TalamantesW-R: [address], [place] [address], Ph. Attender: Sharon Bautista [facility] Medical 05/06/2020 12:00:00 AM EDT [place] ([facility]) LESLY TalamantesW-R: [address], [place] [address], Ph. Attender: Sharon Bautista [facility] Medical 05/06/2020 12:00:00 AM EDT [place] ([facility]) LESLY TalamantesW-R: [address], [place] [address], Ph. Attender: Sharon Bautista [facility] Medical 05/06/2020 12:00:00 AM EDT [place] ([facility]) SharonLESLY MccartneyW-R: [address], [place] [address], Ph. Attender: Sharon Bautista [facility] Medical 05/06/2020 12:00:00 AM EDT [place] ([facility]) LESLY TalamantesW-R: [address], [place] [address], Ph. Attender: Sharon Bautista [facility] Medical 05/06/2020 12:00:00 AM EDT [place] ([facility]) LESLY TalamantesW-R: [address], [place] [address], Ph. Attender: Sharon aButista [facility] Medical 05/06/2020 12:00:00 AM EDT [place] ([facility]) LESLY TalamantesW-R: [address], [place] [address], Ph. Attender: Sharon Megagueromarilyalan [facility] Medical 05/06/2020 12:00:00 AM EDT [place] ([facility]) LESLY TalamantesW-R: [address], [place] [address], Ph. Attender: Sharon Michele [facility] Medical 05/06/2020 12:00:00 AM EDT [place] ([facility]) LESLY TalamantesW-R: [address], [place] [address], Ph. Attender: Sharon Bautista [facility] Medical 05/06/2020 12:00:00 AM EDT [place] ([facility]) SharonLESLY MccartneyW-R: [address], [place] [address], Ph. Attender: Sharon Bautista [facility] Medical 05/06/2020 12:00:00 AM EDT [place] ([facility]) LESLY TalamantesW-R: [address], [place] [address], Ph. Attender: Sharon Bautista [facility] Medical 05/06/2020 12:00:00 AM EDT [place] ([facility]) Chayo Dickerson RPA-C: [address], [place] [address], Ph. Attender: CHAYO DICKERSON [facility] Medical 05/03/2020 12:00:00 AM EDT [place] ([facility]) Chayo Dickerson RPA-C: [address], [address], [place] [address], Ph. Attender: CHAYO DICKERSON [facility] Medical 05/03/2020 12:00:00 AM EDT [place] ([facility]) Chayo Dickerson RPA-C: [address], [place] [address], Ph. Attender: CHAYO DICKERSON [facility] Medical 05/03/2020 12:00:00 AM EDT [place] ([facility]) Chayo Dickerson RPA-C: [address], [place] [address], Ph. Attender: CHAYO DICKERSON [facility] Medical 05/03/2020 12:00:00 AM EDT [place] ([facility]) Chayo Dickerson RPA-C: [address], [place] [address], Ph. Attender: CHAYO DICKERSON [facility] Medical 05/03/2020 12:00:00 AM EDT [place] ([facility]) Chayo Dickerson RPA-C: [address], [place] [address], Ph. Attender: CHAYO DICKERSON [facility] Medical 05/03/2020 12:00:00 AM EDT [place] ([facility]) Chayo Dickerson RPA-C: [address], [place] [address], Ph. Attender: CHAYO DICKERSON [facility] Medical 05/03/2020 12:00:00 AM EDT [place] ([facility]) Chayo Dickerson RPA-C: [address], [place] [address], Ph. Attender: CHAYO DICKERSON [facility] Medical 05/03/2020 12:00:00 AM EDT [place] ([facility]) Chayo Dickerson RPA-C: [address], [place] [address], Ph. Attender: CHAYO DICKERSON [facility] Medical 05/03/2020 12:00:00 AM EDT [place] ([facility]) Chayo Dickerson RPA-C: [address], [place] [address], Ph. Attender: CHAYO DICKERSON [facility] Medical 05/03/2020 12:00:00 AM EDT [place] ([facility]) Chayo Dickerson RPA-C: [address], [place] [address], Ph. Attender: CHAYO DICKERSON [facility] Medical 05/03/2020 12:00:00 AM EDT [place] ([facility]) Chayo Dickerson RPA-C: [address], [place] [address], Ph. Attender: CHAYO DICKERSON [facility] Medical 05/03/2020 12:00:00 AM EDT [place] ([facility]) Chayo Dickerson RPA-C: [address], [place] [address], Ph. Attender: CHAYO DICKERSON [facility] Medical 05/03/2020 12:00:00 AM EDT [place] ([facility]) Chayo Dickerson RPA-C: [address], [place] [address], Ph. Attender: CHAYO DICKERSON [facility] Medical 05/03/2020 12:00:00 AM EDT [place] ([facility]) Chayo Dickerson RPA-C: [address], [place] [address], Ph. Attender: CHAYO DICKERSON [facility] Medical 05/03/2020 12:00:00 AM EDT [place] ([facility]) Chayo Dickerson RPA-C: [address], [place] [address], Ph. Attender: CHAYO DICKERSON [facility] Medical 05/03/2020 12:00:00 AM EDT [place] ([facility]) Chayo Dickerson RPA-C: [address], [place] [address], Ph. Attender: CHAYO DICKERSON [facility] Medical 05/03/2020 12:00:00 AM EDT [place] ([facility]) Chayo Dickerson RPA-C: [address], [place] [address], Ph. Attender: CHAYO DICKERSON [facility] Medical 05/03/2020 12:00:00 AM EDT [place] ([facility]) Chayo Dickerson RPA-C: [address], [place] [address], Ph. Attender: CHAYO DICKERSON [facility] Medical 05/03/2020 12:00:00 AM EDT [place] ([facility]) LESLY TalamantesW-R: [address], [place] [address], Ph. Attender: Sharon Bautista [facility] Medical 04/22/2020 12:00:00 AM EDT [place] ([facility]) LESLY TalamantesW-R: [address], [place] [address], Ph. Attender: Sharon Bautista [facility] Medical 04/22/2020 12:00:00 AM EDT [place] ([facility]) SharonLESLY MccartneyW-R: [address], [place] [address], Ph. Attender: Sharon Bautista [facility] Medical 04/22/2020 12:00:00 AM EDT [place] ([facility]) LESLY TalamantesW-R: [address], [place] [address], Ph. Attender: Sharon Bautista [facility] Medical 04/22/2020 12:00:00 AM EDT [place] ([facility]) LESLY TalamantesW-R: [address], [place] [address], Ph. Attender: Sharon Bautista [facility] Medical 04/22/2020 12:00:00 AM EDT [place] ([facility]) LESLY TalamantesW-R: [address], [place] [address], Ph. Attender: Sharon Bautista [facility] Medical 04/22/2020 12:00:00 AM EDT [place] ([facility]) LESLY TalamantesW-R: [address], [place] [address], Ph. Attender: Sharon Bautista [facility] Medical 04/22/2020 12:00:00 AM EDT [place] ([facility]) LESLY TalamantesW-R: [address], [place] [address], Ph. Attender: Sharon Bautista [facility] Medical 04/22/2020 12:00:00 AM EDT [place] ([facility]) LESLY TalamantesW-R: [address], [place] [address], Ph. Attender: Sharon Bautista [facility] Medical 04/22/2020 12:00:00 AM EDT [place] ([facility]) LESLY TalamantesW-R: [address], [place] [address], Ph. Attender: Sharon Ayoubgueromarilyalan [facility] Medical 04/22/2020 12:00:00 AM EDT [place] ([facility]) LESLY TalamantesW-R: [address], [place] [address], Ph. Attender: Sharon Megagueromarilyalan [facility] Medical 04/22/2020 12:00:00 AM EDT [place] ([facility]) LESLY TalamantesW-R: [address], [place] [address], Ph. Attender: Sharonlouisa Westmarilyalan [facility] Medical 04/22/2020 12:00:00 AM EDT [place] ([facility]) LESLY TalamantesW-R: [address], [place] [address], Ph. Attender: Sharon Bautista [facility] Medical 04/22/2020 12:00:00 AM EDT [place] ([facility]) Sharon Low, [employer]HER-[employer]: [address], [place] [address], Ph. Attender: Sharon Bautista [facility] Medical 04/22/2020 12:00:00 AM EDT [place] ([facility]) Sharon LouiseLESLY saulW-R: [address], [place] [address], Ph. Attender: Sharon Bautista [facility] Medical 04/22/2020 12:00:00 AM EDT [place] ([facility]) SharonLESLY MccartneyW-R: [address], [place] [address], Ph. Attender: Sharon Bautista [facility] Medical 04/22/2020 12:00:00 AM EDT [place] ([facility]) SharonLESLY MccartneyW-R: [address], [place] [address], Ph. Attender: Sharon Bautista [facility] Medical 04/22/2020 12:00:00 AM EDT HILDA ([facility]) LESLY TalamantesW-R: [address], [place] [address], Ph. Attender: Sharon Bautista [facility] Medical 04/22/2020 12:00:00 AM EDT HILDA ([facility]) LESLY TalamantesW-R: [address], [place] [address], Ph. Attender: Sharon Michele [facility] Medical 04/22/2020 12:00:00 AM EDT HILDA ([facility]) Sharon Low, [employer] USHER-R: [address], [place] [address], Ph. Attender: Sharon Bautista [facility] Medical 04/22/2020 12:00:00 AM EDT HILDA ([facility]) Chayo Dickerson RPA-C: [address], [place] [address], Ph. Attender: CHAYO DICKERSON [facility] Medical 04/16/2020 12:00:00 AM EST HILDA ([facility]) MADDISON AdamsC: [address], [place] [address], Ph. Attender: CHAYO DICKERSON [facility] Medical 04/16/2020 12:00:00 AM EST HILDA ([facility]) MADDISON AdamsC: [address], [place] [address], Ph. Attender: CHAYO DICKERSON [facility] Medical 04/16/2020 12:00:00 AM EST HILDA ([facility]) MADDISON AdamsC: [address], [place] [address], Ph. Attender: CHAYO DICKERSON [facility] Medical 04/16/2020 12:00:00 AM EST HILDA ([facility]) MADDISON AdamsC: [address], [place] [address], Ph. Attender: CHAYO DICKERSON [facility] Medical 04/16/2020 12:00:00 AM EST HILDA ([facility]) Chyao Dickerson RPA-C: [address], [place] [address], Ph. Attender: CHAYO DICKERSON [facility] [facility] Medical 04/16/2020 12:00:00 AM EST HILDA ([facility]) Chayo Dickerson RPA-C: [address], [place] [address], Ph. Attender: CHAYO DICKERSON [facility] Medical 04/16/2020 12:00:00 AM EST HILDA ([facility]) MADDISON AdamsC: [address], [place] [address], Ph. Attender: CHAYO DICKERSON [facility] Medical 04/16/2020 12:00:00 AM EST HILDA ([facility]) MADDISON AdamsC: [address], [place] [address], Ph. Attender: CHAYO DICKERSON [facility] Medical 04/16/2020 12:00:00 AM EST HILDA ([facility]) Chayo Dickerson RPA-C: [address], [place] [address], Ph. Attender: CHAYO DICKERSON [facility] Medical 04/16/2020 12:00:00 AM EST HILDA ([facility]) Chayo Dickerson RPA-C: [address], [place] [address], Ph. Attender: CHAYO DICKERSON [facility] Medical 04/16/2020 12:00:00 AM EST HILDA ([facility]) Chayo Dickerson RPA-C: [address], [place] [address], Ph. Attender: CHAYO DICKERSON [facility] Medical 04/16/2020 12:00:00 AM EST HILDA ([facility]) Chayo Dickerson RPA-C: [address], [place] [address], Ph. Attender: CHAYO DICKERSON [facility] Medical 04/16/2020 12:00:00 AM EST HILDA ([facility]) Chayo Dickerson RPA-C: [address], [place] [address], Ph. Attender: CHAYO DICKERSON [facility] Medical 04/16/2020 12:00:00 AM EST HILDA ([facility]) Chayo Dickerson RPA-C: [address], [place] [address], Ph. Attender: CHAYO DICKERSON [facility] Medical 04/16/2020 12:00:00 AM EST HILDA ([facility]) Chayo Dickerson RPA-C: [address], [place] [address], Ph. Attender: CHAYO DICKERSON [facility] Medical 04/16/2020 12:00:00 AM EST HILDA ([facility]) Chayo Dickerson RPA-C: [address], [place] [address], Ph. Attender: CHAYO DICKERSON [facility] Medical 04/16/2020 12:00:00 AM EST HILDA ([facility]) Chayo Dickerson RPA-C: [address], [place] [address], Ph. Attender: CHAYO DICKERSON [facility] Medical 04/16/2020 12:00:00 AM EST HILDA ([facility]) Chayo Dickerson RPA-C: [address], [place] [address], Ph. Attender: CHAYO DICKERSON [facility] Medical 04/16/2020 12:00:00 AM EST HILDA ([facility]) Chayo Dickerson RPA-C: [address], [place] [address], Ph. Attender: CHAYO DICKERSON [facility] Medical 04/16/2020 12:00:00 AM EST HILDA ([facility]) Chayo Dickerson RPA-C: [address], [place] [address], Ph. Attender: CHAYO DICKERSON [facility] Medical 04/16/2020 12:00:00 AM EST HILDA ([facility]) LESLY TalamantesW-R: [address], [place] [address], Ph. Attender: Sharon Bautista [facility] Medical 04/15/2020 12:00:00 AM EST HILDA ([facility]) Sharon Low, [employer]-R: [address], [place] [address], Ph. Attender: Sharon Bautista [facility] Medical 04/15/2020 12:00:00 AM EST HILDA ([facility]) SharonLESLY MccartneyW-R: [address], [place] [address], Ph. Attender: Sharon Bautista [facility] Medical 04/15/2020 12:00:00 AM EST HILDA ([facility]) LESLY TalamantesW-R: [address], [place] [address], Ph. Attender: Sharon Ayoubgueromarilyalan [facility] Medical 04/15/2020 12:00:00 AM EST HILDA ([facility]) LESLY TalamantesW-R: [address], [place] [address], Ph. Attender: Sharon Barahonaalan [facility] Medical 04/15/2020 12:00:00 AM EST HILDA ([facility]) LESLY TalamantesW-R: [address], [place] [address], Ph. Attender: Sharon Ayoubdiego [facility] Medical 04/15/2020 12:00:00 AM EST HILDA ([facility]) LESLY TalamantesW-R: [address], [place] [address], Ph. Attender: Sharon Bautista [facility] Medical 04/15/2020 12:00:00 AM EST HILDA ([facility]) LESLY TalamantesW-R: [address], [place] [address], Ph. Attender: Sharon Bautista [facility] Medical 04/15/2020 12:00:00 AM EST HILDA ([facility]) Sharon LouiseLESLY saulW-R: [address], [place] [address], Ph. Attender: Sharon Bautista [facility] Medical 04/15/2020 12:00:00 AM EST HILDA ([facility]) Sharon LouiseLESLY saulW-R: [address], [place] [address], Ph. Attender: Sharon Ayoubdiego [facility] Medical 04/15/2020 12:00:00 AM EST HILDA ([facility]) Sharon LouiseLESLY saulW-R: [address], [place] [address], Ph. Attender: Sharon Ayoubgueromarilyalan [facility] Medical 04/15/2020 12:00:00 AM EST HILDA ([facility]) LESLY TalamantesW-R: [address], [place] [address], Ph. Attender: Sharonlouisa Bautista [facility] Medical 04/15/2020 12:00:00 AM EST HILDA ([facility]) LESLY TalamantesW-R: [address], [place] [address], Ph. Attender: Sharon Bautista [facility] Medical 04/15/2020 12:00:00 AM EST HILDA ([facility]) Sharon LowLESLYW-R: [address], [place] [address], Ph. Attender: Sharon Bautista [facility] Medical 04/15/2020 12:00:00 AM EST HILDA ([facility]) Sharon LouiseLESLY saulW-R: [address], [place] [address], Ph. Attender: Sharon Bautista [facility] Medical 04/15/2020 12:00:00 AM EST HILDA ([facility]) Sharon LouiseLESLY saulW-R: [address], [place] [address], Ph. Attender: Sharon Jennamarilyalan [facility] Medical 04/15/2020 12:00:00 AM EST HILDA ([facility]) Sharon LouiseLESLY saulW-R: [address], [place] [address], Ph. Attender: Sharno Michele [facility] Medical 04/15/2020 12:00:00 AM EST HILDA ([facility]) LESLY TalamantesW-R: [address], [place] [address], Ph. Attender: Sharon Michele [facility] Medical 04/15/2020 12:00:00 AM EST HILDA ([facility]) SharonLESLY MccartneyW-R: [address], [place] [address], Ph. Attender: Sharon Bautista [facility] Medical 04/15/2020 12:00:00 AM EST HILDA ([facility]) Sharon Low, [employer]-R: [address], [place] [address], Ph. Attender: Sharon Ayoubgueromeg [facility] Medical 04/15/2020 12:00:00 AM EST HILDA ([facility]) Sharon Low, [employer] USHER-R: [address], [place] [address], Ph. Attender: Sharon Jennameg [facility] Medical 04/15/2020 12:00:00 AM EST HILDA ([facility]) Sharon LouiseLESLY saulW-R: [address], [place] [address], Ph. Attender: Sharonlouisa Bautista [facility] Medical 04/15/2020 12:00:00 AM EST HILDA ([facility]) Chayo Dickerson RPA-C: [address], [place] [address], Ph. Attender: CHAYO DICKERSON [facility] Medical 04/02/2020 12:00:00 AM EST HILDA ([facility]) Chayo Dickerson RPA-C: [address], [place] [address], Ph. Attender: CHAYO DICKERSON [facility] Medical 04/02/2020 12:00:00 AM EST HILDA ([facility]) Chayo Dickerson RPA-C: [address], [place] [address], Ph. Attender: CHAYO DICKERSON [facility] Medical 04/02/2020 12:00:00 AM EST HILDA ([facility]) Chayo Dickerson RPA-C: [address], [place] [address], Ph. Attender: CHAYO DICKERSON [facility] Medical 04/02/2020 12:00:00 AM EST HILDA ([facility]) Chayo Dickerson RPA-C: [address], [place] [address], Ph. Attender: CHAYO DICKERSON [facility] Medical 04/02/2020 12:00:00 AM EST HILDA ([facility]) Chayo Dickerson RPA-C: [address], [place] [address], Ph. Attender: CHAYO DICKERSON [facility] Medical 04/02/2020 12:00:00 AM EST HILDA ([facility]) Chayo Dickerson RPA-C: [address], [place] [address], Ph. Attender: CHAYO DICKERSON [facility] Medical 04/02/2020 12:00:00 AM EST HILDA ([facility]) Chayo Dickerson RPA-C: [address], [place] [address], Ph. Attender: CHAYO DICKERSON [facility] Medical 04/02/2020 12:00:00 AM EST HILDA ([facility]) Chayo Dickerson RPA-C: [address], [place] [address], Ph. Attender: CHAYO DICKERSON [facility] Medical 04/02/2020 12:00:00 AM EST HILDA ([facility]) Chayo Dickerson RPA-C: [address], [place] [address], Ph. Attender: CHAYO DICKERSON [facility] Medical 04/02/2020 12:00:00 AM EST HILDA ([facility]) Chayo Dickerson RPA-C: [address], [place] [address], Ph. Attender: CHAYO DICKERSON [facility] Medical 04/02/2020 12:00:00 AM EST HILDA ([facility]) MADDISON AdamsC: [address], [place] [address], Ph. Attender: CHAYO DICKERSON [facility] Medical 04/02/2020 12:00:00 AM EST HILDA ([facility]) Chayo Dickerson RPA-C: [address], [place] [address], Ph. Attender: CHAYO DICKERSON [facility] Medical 04/02/2020 12:00:00 AM EST HILDA ([facility]) Chayo Dickerson RPA-C: [address], [place] [address], Ph. Attender: CHAYO DICKERSON [facility] Medical 04/02/2020 12:00:00 AM EST HILDA ([facility]) Chayo Dickerson RPA-C: [address], [place] [address], Ph. Attender: CHAYO DICKERSON [facility] Medical 04/02/2020 12:00:00 AM EST HILDA ([facility]) MADDISON AdamsC: [address], [place] [address], Ph. Attender: CHAYO DICKERSON [facility] Medical 04/02/2020 12:00:00 AM EST HILDA ([facility]) MADDISON AdamsC: [address], [place] [address], Ph. Attender: CHAYO DICKERSON [facility] Medical 04/02/2020 12:00:00 AM EST HILDA ([facility]) MADDISON AdamsC: [address], [place] [address], Ph. Attender: CHAYO DICKERSON [facility] Medical 04/02/2020 12:00:00 AM EST HILDA ([facility]) MADDISON AdamsC: [address], [place] [address], Ph. Attender: HCAYO DICKERSON [facility] Medical 04/02/2020 12:00:00 AM EST HILDA ([facility]) MADDISON AdamsC: [address], [place] [address], Ph. Attender: CHAYO DICKERSON [facility] Medical 04/02/2020 12:00:00 AM EST HILDA ([facility]) Chayo Dickerson, RPA-C: [address], [place] [address], Ph. Attender: CHAYO DICKERSON [facility] Medical 04/02/2020 12:00:00 AM EST HILDA ([facility]) Chayo Dickerson RPA-C: [address], [place] [address], Ph. Attender: CHAYO DICKERSON [facility] Medical 04/02/2020 12:00:00 AM EST HILDA ([facility]) Chayo Dickerson RPA-C: [address], [place] [address], Ph. Attender: CHAYO DICKERSON [facility] Medical 04/02/2020 12:00:00 AM EST HILDA ([facility]) Merlenemarie Sadler, [facility]: [address], [place] [address], Ph. Attender: Merlenemarie Sadler [facility] Medical 03/05/2020 12:00:00 AM EST HILDA ([facility]) Merlene Sadler [facility]: [address], [place] [address], Ph. Attender: Merlene Sadler [facility] Medical 03/05/2020 12:00:00 AM EST HILDA ([facility]) Merlene Sadler [facility]: [address], [place] [address], Ph. Attender: Merlene Sadler [facility] Medical 03/05/2020 12:00:00 AM EST HILDA ([facility]) Merlene Sadler [facility]: [address], [place] [address], Ph. Attender: Merlene Sadler [facility] Medical 03/05/2020 12:00:00 AM EST HILDA ([facility]) Merlene Sadler, [employer]: [address], [place] [address], Ph. Attender: Merlene Sadler [facility] Medical 03/05/2020 12:00:00 AM EST HILDA ([facility]) Merlene Sadler [facility]: [address], [place] [address], Ph. Attender: Merlene Sadler [facility] Medical 03/05/2020 12:00:00 AM EST HILDA ([facility]) Merlene Sadler, [facility]: [address], [place] [address], Ph. Attender: Merlene Sadler [facility] Medical 03/05/2020 12:00:00 AM EST HILDA ([facility]) Merlene Sadler [facility]: [address], [place] [address], Ph. Attender: Merlene Sadler [facility] Medical 03/05/2020 12:00:00 AM EST HILDA ([facility]) Merlene Sadler [facility]: [address], [place] [address], Ph. Attender: Merlene Sadler [facility] Medical 03/05/2020 12:00:00 AM EST HILDA ([facility]) Merlene Sadler, [employer]: [address], [place] [address], Ph. Attender: Merlene Sadler [facility] Medical 03/05/2020 12:00:00 AM EST HILDA ([facility]) Merlene Sadler, [employer]: [address], [place] [address], Ph. Attender: Merlene Sadler [facility] Medical 03/05/2020 12:00:00 AM EST HILDA ([facility]) Merlene Sadler, [facility]: [address], [place] [address], Ph. Attender: Merlene Sadler [facility] Medical 03/05/2020 12:00:00 AM EST HILDA ([facility]) Merlene Sadler, [facility]: [address], [place] [address], Ph. Attender: Merlene Sadler [facility] Medical 03/05/2020 12:00:00 AM EST IHLDA ([facility]) Merlene Sadler, [employer]: [address], [place] [address], Ph. Attender: Merlene Sadler [facility] Medical 03/05/2020 12:00:00 AM EST HILDA ([facility]) Merlene Sadler, [facility]: [address], [place] [address], Ph. Attender: Merlene Sadler [facility] Medical 03/05/2020 12:00:00 AM EST HILDA ([facility]) Merlene Sadler, [employer]: [address], [place] [address], Ph. Attender: Merlene Sadler [facility] Medical 03/05/2020 12:00:00 AM EST HILDA ([facility]) Merlene Sadler, [employer]: [address], [place] [address], Ph. Attender: Merlene Sadler [facility] Medical 03/05/2020 12:00:00 AM EST HILDA ([facility]) Merlene Sadler, [employer]: [address], [place] [address], Ph. Attender: Merlene Sadler [facility] Medical 03/05/2020 12:00:00 AM EST HILDA ([facility]) Merlene Sadler, [employer]: [address], [place] [address], Ph. Attender: Merlene Sadler [facility] Medical 03/05/2020 12:00:00 AM EST HILDA ([facility]) Merlene Sadler, [employer]: [address], [place] [address], Ph. Attender: Merlene Sadler [facility] Medical 03/05/2020 12:00:00 AM EST HILDA ([facility]) Merlene Sadler, [employer]: [address], [place] [address], Ph. Attender: Merlene Sadler [facility] Medical 03/05/2020 12:00:00 AM EST HILDA ([facility]) Merlene Sadler, [employer]: [address], [place] [address], Ph. Attender: Merlene Sadler [facility] Medical 03/05/2020 12:00:00 AM EST HILDA ([facility]) Merlene Sadler, [employer]: [address], [place] [address], Ph. Attender: Merlene Sadler [facility] Medical 03/05/2020 12:00:00 AM EST HILDA ([facility]) Merlene Sadler, [employer]: [address], [place] [address], Ph. Attender: Merlene Sadler [facility] Medical 03/05/2020 12:00:00 AM EST HILDA ([facility]) Merlene Sadler [employer]: [address], [place] [address], Ph. Attender: Merlene Sadler [facility] Medical 02/20/2020 12:00:00 AM EST HILDA ([facility]) Merlene Sadler, [employer]: [address], [place] [address], Ph. Attender: Merlene Sadler [facility] Medical 02/20/2020 12:00:00 AM EST HILDA ([facility]) Merlene Sadler [employer]: [address], [place] [address], Ph. Attender: Merlene Sadler [facility] Medical 02/20/2020 12:00:00 AM EST HILDA ([facility]) Merlene Sadler, [employer]: [address], [place] [address], Ph. Attender: Merlene Sadler [facility] Medical 02/20/2020 12:00:00 AM EST HILDA ([facility]) Merlene Sadler, [employer]: [address], [place] [address], Ph. Attender: Merlene Sadler [facility] Medical 02/20/2020 12:00:00 AM EST HILDA ([facility]) Merlene Sadler, [employer]: [address], [place] [address], Ph. Attender: Merlene Sadler [facility] Medical 02/20/2020 12:00:00 AM EST HILDA ([facility]) Merlene Sadler, [employer]: [address], [place] [address], Ph. Attender: Merlene Sadler [facility] Medical 02/20/2020 12:00:00 AM EST HILDA ([facility]) Merlene Sadler, [employer]: [address], [place] [address], Ph. Attender: Merlene Sadler [facility] Medical 02/20/2020 12:00:00 AM EST HILDA ([facility]) Merlene Sadler, [employer]: [address], [place] [address], Ph. Attender: Merlene Sadler [facility] Medical 02/20/2020 12:00:00 AM EST HILDA ([facility]) Merlene Sadler, [employer]: [address], [place] [address], Ph. Attender: Merlene Sadler [facility] Medical 02/20/2020 12:00:00 AM EST HILDA ([facility]) Merlene Sadler, [facility]: [address], [place] [address], Ph. Attender: Merlene Sadler [facility] [place] [facility] Medical 02/20/2020 12:00:00 AM EST HILDA ([facility]) Merlene Sadler, [employer]: [address], [place] [address], Ph. Attender: Merlene Sadler [facility] [place] Medical 02/20/2020 12:00:00 AM EST HILDA ([facility]) Merlene Sadler, [facility]: [address], [place] [address], Ph. Attender: Merlene Sadler [facility] [place] [facility] Medical 02/20/2020 12:00:00 AM EST HILDA ([facility]) Merlene Sadler, [facility]: [address], [place] [address], Ph. Attender: Merlene Sadler [facility] [place] [facility] Medical 02/20/2020 12:00:00 AM EST HILDA ([facility]) Merlene Sadler, [facility]: [address], [place] [address], Ph. Attender: Merlene Sadler [facility] Medical 02/20/2020 12:00:00 AM EST HILDA ([facility]) Merlene Sadler, [employer]: [address], [place] [address], Ph. Attender: Merlene Sadler [facility] Medical 02/20/2020 12:00:00 AM EST HILDA ([facility]) Merlene Sadler [employer]: [address], [place] [address], Ph. Attender: Merlene Sadler [facility] Medical 02/20/2020 12:00:00 AM EST HILDA ([facility]) Merlene Sadler, [employer]: [address], [place] [address], Ph. Attender: Merlene Sadler [facility] Medical 02/20/2020 12:00:00 AM EST HILDA ([facility]) Merlene Sadler [employer]: [address], [place] [address], Ph. Attender: Merlene Sadler [facility] Medical 02/20/2020 12:00:00 AM EST HILDA ([facility]) Merlene Sadler, [employer]: [address], [place] [address], Ph. Attender: Merlene Sadler [facility] Medical 02/20/2020 12:00:00 AM EST HILDA ([facility]) Merlene Sadler, [employer]: [address], [place] [address], Ph. Attender: Merlene Sadler [facility] Medical 02/20/2020 12:00:00 AM EST HILDA ([facility]) Merlene Sadler, [employer]: [address], [place] [address], Ph. Attender: Merlene Sadler [facility] Medical 02/20/2020 12:00:00 AM EST HILDA ([facility]) Merlene Sadler, [employer]: [address], [place] [address], Ph. Attender: Merlene Sadler [facility] Medical 02/20/2020 12:00:00 AM EST HILDA ([facility]) Merlene Sadler, [employer]: [address], [place] [address], Ph. Attender: Merlene Sadler [facility] Medical 02/20/2020 12:00:00 AM EST HILDA ([facility]) Merlene Sdaler, [employer]: [address], [place] [address], Ph. Attender: Merlene Sadler [facility] Medical 02/20/2020 12:00:00 AM EST HILDA ([facility]) Terry Quiroga RPA-C: [address], [place] [address], Ph. Attender: TERRY QUIROGA RPA-C [facility] Medical 02/02/2020 12:00:00 AM EST HILDA ([facility]) Merlene Sadler, [employer]: [address], [place] [address], Ph. Attender: Merlene Sadler [facility] Medical 02/02/2020 12:00:00 AM EST HILDA ([facility]) Terry Quiroga RPA-C: [address], [place] [address], Ph. Attender: TERRY QUIROGA RPA-C [facility] Medical 02/02/2020 12:00:00 AM EST HILDA ([facility]) Merlene Sadler, [employer]: [address], [place] [address], Ph. Attender: Merlene Sadler [facility] Medical 02/02/2020 12:00:00 AM EST HILDA ([facility]) Terry Quiroga RPA-C: [address], [place] [address], Ph. Attender: TERRY QUIROGA RPA-C [facility] Medical 02/02/2020 12:00:00 AM EST HILDA ([facility]) Merlene Sadler, [employer]: [address], [place] [address], Ph. Attender: Merlene Sadler [facility] Medical 02/02/2020 12:00:00 AM EST HILDA ([facility]) Terry Quiroga RPA-C: [address], [place] [address], Ph. Attender: TERRY QUIROGA RPA-C [facility] Medical 02/02/2020 12:00:00 AM EST HILDA ([facility]) Merlene Sadler, [employer]: [address], [place] [address], Ph. Attender: Merlene Sadler [facility] Medical 02/02/2020 12:00:00 AM EST HILDA ([facility]) Terry Quiroga RPA-C: [address], [place] [address], Ph. Attender: TERRY QUIROGA RPA-C [facility] Medical 02/02/2020 12:00:00 AM EST HILDA ([facility]) Merlene Sadler, [employer]: [address], [place] [address], Ph. Attender: Merlene Sadler [facility] Medical 02/02/2020 12:00:00 AM EST HILDA ([facility]) Terry Quiroga RPA-C: [address], [place] [address], Ph. Attender: TERRY QUIROGA RPA-C [facility] Medical 02/02/2020 12:00:00 AM EST HILDA ([facility]) Merlene Sadler, [facility]: [address], [place] [address], Ph. Attender: Merlene Sadler [facility] Medical 02/02/2020 12:00:00 AM EST HILDA ([facility]) Terry Quiroga RPA-C: [address], [place] [address], Ph. Attender: TERRY QUIROGA RPA-C [facility] Medical 02/02/2020 12:00:00 AM EST HILDA ([facility]) Merlene Sadler, [facility]: [address], [place] [address], Ph. Attender: Merlene Sadler [facility] Medical 02/02/2020 12:00:00 AM EST HILDA ([facility]) Terry Quiroga RPA-C: [address], [place] [address], Ph. Attender: TERRY QUIROGA RPA-C [facility] Medical 02/02/2020 12:00:00 AM EST HILDA ([facility]) Merlene Sadler, [facility]: [address], [place] [address], Ph. Attender: Merlene Sadler [facility] Medical 02/02/2020 12:00:00 AM EST HILDA ([facility]) Terry Quiroga RPA-C: [address], [place] [address], Ph. Attender: TERRY QUIROGA RPA-C [facility] Medical 02/02/2020 12:00:00 AM EST HILDA ([facility]) Merlene Sadler, [facility]: [address], [place] [address], Ph. Attender: Merlene Sadler [facility] Medical 02/02/2020 12:00:00 AM EST HILDA ([facility]) Teryr Quiroga RPA-C: [address], [place] [address], Ph. Attender: TERRY WASHBURNC [facility] Medical 02/02/2020 12:00:00 AM EST HILDA ([facility]) Merlene Sadler, [facility]: [address], [place] [address], Ph. Attender: Merlene Sadler [facility] Medical 02/02/2020 12:00:00 AM EST HILDA ([facility]) Terry Quiroga RPA-C: [address], [place] [address], Ph. Attender: TERRY QUIROGA RPA-C [facility] Medical 02/02/2020 12:00:00 AM EST HILDA ([facility]) Merlene Sadler, [employer]: [address], [place] [address], Ph. Attender: Merlene Sadler [facility] Medical 02/02/2020 12:00:00 AM EST HILDA ([facility]) Terry Quiroga RPA-C: [address], [place] [address], Ph. Attender: TERRY QUIROGA RPA-C [facility] Medical 02/02/2020 12:00:00 AM EST HILDA ([facility]) Merlene Sadler, [facility]: [address], [place] [address], Ph. Attender: Merlene Sadler [facility] Medical 02/02/2020 12:00:00 AM EST HILDA ([facility]) Terry Quiroga RPA-C: [address], [place] [address], Ph. Attender: TERRY QUIROGA RPA-C [facility] Medical 02/02/2020 12:00:00 AM EST HILDA ([facility]) Merlene Sadler, [employer]: [address], [place] [address], Ph. Attender: Merlene Sadler [facility] Medical 02/02/2020 12:00:00 AM EST HILDA ([facility]) Terry Quiroga RPA-C: [address], [place] [address], Ph. Attender: TERRY QUIROGA RPA-C [facility] Medical 02/02/2020 12:00:00 AM EST HILDA ([facility]) Merlene Sadler, [facility]: [address], [place] [address], Ph. Attender: Merlene Sadler [facility] Medical 02/02/2020 12:00:00 AM EST HILDA ([facility]) Terry Quiroga RPA-C: [address], [place] [address], Ph. Attender: TERRY WASHBURNC [facility] Medical 02/02/2020 12:00:00 AM EST HILDA ([facility]) Merlene Sadler [facility]: [address], [place] [address], Ph. Attender: Merlene Sadler [facility] Medical 02/02/2020 12:00:00 AM EST HILDA ([facility]) Terry Quiroga RPA-C: [address], [place] [address], Ph. Attender: TERRY WASHBURNC [facility] Medical 02/02/2020 12:00:00 AM EST HILDA ([facility]) Merlene Sadler, [facility]: [address], [place] [address], Ph. Attender: Merlene Sadler [facility] Medical 02/02/2020 12:00:00 AM EST HILDA ([facility]) Terry Quiroga RPA-C: [address], [place] [address], Ph. Attender: TERRY QUIROGA RPA-C [facility] Medical 02/02/2020 12:00:00 AM EST HILDA ([facility]) Merlene Sadler, [employer]: [address], [place] [address], Ph. Attender: Merlene Sadler [facility] Medical 02/02/2020 12:00:00 AM EST HILDA ([facility]) Terry Quiroga RPA-C: [address], [place] [address], Ph. Attender: TERRY QUIROGA RPA-C [facility] Medical 02/02/2020 12:00:00 AM EST HILDA ([facility]) Merlene Sadler, [facility]: [address], [place] [address], Ph. Attender: Merlene Sadler [facility] Medical 02/02/2020 12:00:00 AM EST HILDA ([facility]) Terry Quiroga RPA-C: [address], [place] [address], Ph. Attender: TERRY QUIROGA RPA-C [facility] Medical 02/02/2020 12:00:00 AM EST HILDA ([facility]) Merlene Sadler, [employer]: [address], [place] [address], Ph. Attender: Merlene Sadler [facility] Medical 02/02/2020 12:00:00 AM EST HILDA ([facility]) Terry Quiroga RPA-C: [address], [place] [address], Ph. Attender: TERRY QUIROGA RPA-C [facility] Medical 02/02/2020 12:00:00 AM EST HILDA ([facility]) Merlene Sadler, [employer]: [address], [place] [address], Ph. Attender: Merlene Sadler [facility] Medical 02/02/2020 12:00:00 AM EST HILDA ([facility]) Terry Quiroga RPA-C: [address], [place] [address], Ph. Attender: TERRY QUIROGA RPA-C [facility] Medical 02/02/2020 12:00:00 AM EST HILDA ([facility]) Merlene Sadler [facility]: [address], [place] [address], Ph. Attender: Merlene Sadler [facility] Medical 02/02/2020 12:00:00 AM EST HILDA ([facility]) Terry Quiroga RPA-C: [address], [place] [address], Ph. Attender: TERRY QUIROGA RPA-C [facility] Medical 02/02/2020 12:00:00 AM EST HILDA ([facility]) Merlene Sadler, [facility]: [address], [place] [address], Ph. Attender: Merlene Sadler [facility] Medical 02/02/2020 12:00:00 AM EST HILDA ([facility]) Terry Quiroga RPA-C: [address], [place] [address], Ph. Attender: TERRY QUIROGA RPA-C [facility] Medical 02/02/2020 12:00:00 AM EST HILDA ([facility]) Merlene Sadler, [employer]: [address], [place] [address], Ph. Attender: Merlene Sadler [facility] Medical 02/02/2020 12:00:00 AM EST HILDA ([facility]) Terry Quiroga RPA-C: [address], [place] [address], Ph. Attender: TERRY QUIROGA RPA-C [facility] Medical 02/02/2020 12:00:00 AM EST HILDA ([facility]) Merlene Sadler, [facility]: [address], [place] [address], Ph. Attender: Merlene Sadler [facility] Medical 02/02/2020 12:00:00 AM EST HILDA ([facility]) Terry Quiroga RPA-C: [address], [place] [address], Ph. Attender: TERRY QUIROAG RPA-C [facility] Medical 02/02/2020 12:00:00 AM EST HILDA ([facility]) Merlene Sadler, [employer]: [address], [place] [address], Ph. Attender: Merlene Sadler [facility] Medical 02/02/2020 12:00:00 AM EST HILDA ([facility]) Terry Quiroga RPA-C: [address], [place] [address], Ph. Attender: TERRY QUIROGA RPA-C [facility] Medical 02/02/2020 12:00:00 AM EST HILDA ([facility]) Merlene Sadler, [employer]: [address], [place] [address], Ph. Attender: Merlene Sadler [facility] Medical 02/02/2020 12:00:00 AM EST HILDA ([facility]) Terry Quiroga, RPA[employer]C: [address], [place] [address], Ph. Attender: TERRY QUIROGA RPA-C [facility] Medical 02/02/2020 12:00:00 AM EST HILDA ([facility]) Merlene Sadler, [facility]: [address], [place] [address], Ph. Attender: Merlene Sadler [facility] Medical 02/02/2020 12:00:00 AM EST HILDA ([facility]) Merlene Sadler, [employer]: [address], [place] [address], Ph. Attender: Merlene Sadler [facility] Medical 01/28/2020 12:00:00 AM EST HILDA ([facility]) Merlene Sadler, [employer]: [address], [place] [address], Ph. Attender: Merlene Sadler [facility] Medical 01/28/2020 12:00:00 AM EST HILDA ([facility]) Merlene Sadler, [employer]: [address], [place] [address], Ph. Attender: Merlene Sadler [facility] [place] [facility] Medical 01/28/2020 12:00:00 AM EST HILDA ([facility]) Merlene Sadler, [employer]: [address], [place] [address], Ph. Attender: Merlene Sadler [facility] [place] [facility] Medical 01/28/2020 12:00:00 AM EST HILDA ([facility]) Merlene Sadler, [employer]: [address], [place] [address], Ph. Attender: Merlene Sadler [facility] Medical 01/28/2020 12:00:00 AM EST HILDA ([facility]) Merlene Sadler, [employer]: [address], [place] [address], Ph. Attender: Merlene Sadler [facility] Medical 01/28/2020 12:00:00 AM EST HILDA ([facility]) Merlene Sadler, [employer]: [address], [place] [address], Ph. Attender: Merlene Sadler [facility] Medical 01/28/2020 12:00:00 AM EST HILDA ([facility]) Merlene Sadler, [employer]: [address], [place] [address], Ph. Attender: Merlene Sadler [facility] Medical 01/28/2020 12:00:00 AM EST HILDA ([facility]) Merlene Sadler, [employer]: [address], [place] [address], Ph. Attender: Merlene Sadler [facility] Medical 01/28/2020 12:00:00 AM EST HILDA ([facility]) Merlene Sadler [facility]: [address], [place] [address], Ph. Attender: Merlene Sadler [facility] Medical 01/28/2020 12:00:00 AM EST HILDA ([facility]) Merlene Sadler, [facility]: [address], [place] [address], Ph. Attender: Merlene Sadler [facility] Medical 01/28/2020 12:00:00 AM EST HILDA ([facility]) Merlene Sadler, [facility]: [address], [place] [address], Ph. Attender: Merlene Sadler [facility] Medical 01/28/2020 12:00:00 AM EST HILDA ([facility]) Merlene Sadler, [facility]: [address], [place] [address], Ph. Attender: Merlene Sadler [facility] Medical 01/28/2020 12:00:00 AM EST HILDA ([facility]) Merlene Sadler, [facility]: [address], [place] [address], Ph. Attender: Merlene Sadler [facility] Medical 01/28/2020 12:00:00 AM EST HILDA ([facility]) Merlene Sadler, [facility]: [address], [place] [address], Ph. Attender: Merlene Sadler [facility] Medical 01/28/2020 12:00:00 AM EST HILDA ([facility]) Merlene Sadler, [facility]: [address], [place] [address], Ph. Attender: Merlene Sadler [facility] Medical 01/28/2020 12:00:00 AM EST HILDA ([facility]) Merlene Sdaler, [employer]: [address], [place] [address], Ph. Attender: Merlene Sadler [facility] Medical 01/28/2020 12:00:00 AM EST HILDA ([facility]) Merlene Sadler, [employer]: [address], [place] [address], Ph. Attender: Merlene Sadler [facility] Medical 01/28/2020 12:00:00 AM EST HILDA ([facility]) Merlene Sadler, [facility]: [address], [place] [address], Ph. Attender: Merlene Sadler [facility] Medical 01/28/2020 12:00:00 AM EST HILDA ([facility]) Merlene Sadler, [facility]: [address], [place] [address], Ph. Attender: Merlene Sadler [facility] Medical 01/28/2020 12:00:00 AM EST HILDA ([facility]) Merlene Sadler, [facility]: [address], [place] [address], Ph. Attender: Merlene Sadler [facility] Medical 01/28/2020 12:00:00 AM EST HILDA ([facility]) Merlene Sadler, [employer]: [address], [place] [address], Ph. Attender: Merlene Sadler [facility] Medical 01/28/2020 12:00:00 AM EST HILDA ([facility]) Merlene Sadler, [employer] SUPERVISOR: [address], [place] [address], Ph. Attender: Merlene Sadler [facility] Medical 01/28/2020 12:00:00 AM EST HILDA ([facility]) Merlene Sadler [employer] SUPERVISOR: [address], [place] [address], Ph. Attender: Merlene Sadler [facility] Medical 01/28/2020 12:00:00 AM EST HILDA ([facility]) Merlene Sadler, [employer] SUPERVISOR: [address], [place] [address], Ph. Attender: Merlene Sadler [facility] Medical 01/28/2020 12:00:00 AM EST HILDA ([facility]) Merlene Sadler [employer] SUPERVISOR: [address], [place] [address], Ph. Attender: Merlene Sadler [facility] Medical 01/28/2020 12:00:00 AM EST HILDA ([facility]) Merlene Sadler [employer] SUPERVISOR: [address], [place] [address], Ph. Attender: Merlene Sadler [facility] Medical 01/28/2020 12:00:00 AM EST HILDA ([facility]) Merlene Sadler, [employer] SUPERVISOR: [address], [place] [address], Ph. Attender: Merlene Sadler [facility] Medical 01/28/2020 12:00:00 AM EST HILDA ([facility]) Merlene Sadler, [employer] SUPERVISOR: [address], [place] [address], Ph. Attender: Merlene Sadler [facility] Medical 01/20/2020 12:00:00 AM EST HILDA ([facility]) Merlene Sadler, [facility]: [address], [place] [address], Ph. Attender: Merlene Sadler [facility] Medical 01/20/2020 12:00:00 AM EST HILDA ([facility]) Merlene Sadler, [facility]: [address], [place] [address], Ph. Attender: Merlene Sadler [facility] Medical 01/20/2020 12:00:00 AM EST HILDA ([facility]) Merlene Sadler, [facility]: [address], [place] [address], Ph. Attender: Merlene Sadler [facility] Medical 01/20/2020 12:00:00 AM EST HILDA ([facility]) Merlene Sadler, [employer]: [address], [place] [address], Ph. Attender: Merlene Sadler [facility] Medical 01/20/2020 12:00:00 AM EST HILDA ([facility]) Merlene Sadler, [employer]: [address], [place] [address], Ph. Attender: Merlene Sadler [facility] Medical 01/20/2020 12:00:00 AM EST HILDA ([facility]) Merlene Sadler, [employer]: [address], [place] [address], Ph. Attender: Merlene Sadler [facility] Medical 01/20/2020 12:00:00 AM EST HILDA ([facility]) Merlene Sadler, [employer]: [address], [place] [address], Ph. Attender: eMrlene Sadler [facility] Medical 01/20/2020 12:00:00 AM EST HILDA ([facility]) Merlene Sadler, [employer]: [address], [place] [address], Ph. Attender: Merlene Sadler [facility] Medical 01/20/2020 12:00:00 AM EST HILDA ([facility]) Merlene Sadler, [employer]: [address], [place] [address], Ph. Attender: Merlene Sadler [facility] Medical 01/20/2020 12:00:00 AM EST HILDA ([facility]) Merlene Sadler, [employer]: [address], [place] [address], Ph. Attender: Merlene Sadler [facility] Medical 01/20/2020 12:00:00 AM EST HILDA ([facility]) Merlene Sadler, [employer]: [address], [place] [address], Ph. Attender: Merlene Sadler [facility] Medical 01/20/2020 12:00:00 AM EST HILDA ([facility]) Merlene Sadler, [facility]: [address], [place] [address], Ph. Attender: Merlene Sadler [facility] Medical 01/20/2020 12:00:00 AM EST HILDA ([facility]) Merlene Sadler, [employer]: [address], [place] [address], Ph. Attender: Merlene Sadler [facility] Medical 01/20/2020 12:00:00 AM EST HILDA ([facility]) Merlene Sadler, [facility]: [address], [place] [address], Ph. Attender: Merlene Sadler [facility] Medical 01/20/2020 12:00:00 AM EST HILDA ([facility]) Merlene Sadler, [facility]: [address], [place] [address], Ph. Attender: Merlene Sadler [facility] Medical 01/20/2020 12:00:00 AM EST HILDA ([facility]) Merlene Sadler, [facility]: [address], [place] [address], Ph. Attender: Merlene Sadler [facility] Medical 01/20/2020 12:00:00 AM EST HILDA ([facility]) Merlene Sadler, [facility]: [address], [place] [address], Ph. Attender: Merlene Sadler [facility] Medical 01/20/2020 12:00:00 AM EST HILDA ([facility]) Merlene Sadler [employer]: [address], [place] [address], Ph. Attender: Merlene Sadler [facility] Medical 01/20/2020 12:00:00 AM EST HILDA ([facility]) Merlene Sadler, [employer]: [address], [place] [address], Ph. Attender: Merlene Sadler [facility] Medical 01/20/2020 12:00:00 AM EST HILDA ([facility]) Merlene Sadler [employer]: [address], [place] [address], Ph. Attender: Merlene Sadler [facility] Medical 01/20/2020 12:00:00 AM EST HILDA ([facility]) Merlene Sadler, [employer]: [address], [place] [address], Ph. Attender: Merlene Sadler [facility] Medical 01/20/2020 12:00:00 AM EST HILDA ([facility]) Merlene Sadler, [employer]: [address], [place] [address], Ph. Attender: Merlene Sadler [facility] Medical 01/20/2020 12:00:00 AM EST HILDA ([facility]) Merlene Sadler, [employer]: [address], [place] [address], Ph. Attender: Merlene Sadler [facility] Medical 01/20/2020 12:00:00 AM EST HILDA ([facility]) Merlene Sadler, [facility]: [address], [place] [address], Ph. Attender: Merlene Sadler [facility] Medical 01/20/2020 12:00:00 AM EST HILDA ([facility]) Merlene Sadler, [employer]: [address], [place] [address], Ph. Attender: Merlene Sadler [facility] Medical 01/20/2020 12:00:00 AM EST HILDA ([facility]) Merlene Sadler, [employer]: [address], [place] [address], Ph. Attender: Merlene Sadler [facility] Medical 01/20/2020 12:00:00 AM EST HILDA ([facility]) Merlene Sadler, [facility]: [address], [place] [address], Ph. Attender: Merlene Sadler [facility] Medical 01/20/2020 12:00:00 AM EST HILDA ([facility]) Merlene Sadler [facility]: [address], [place] [address], Ph. Attender: Merlene Sadler [facility] Medical 01/20/2020 12:00:00 AM EST HILDA ([facility]) Merlene Sadler, [facility]: [address], [place] [address], Ph. Attender: Merlene Sadler [facility] Medical 01/16/2020 12:00:00 AM EST HILDA ([facility]) Merlene Sadler, [facility]: [address], [place] [address], Ph. Attender: Merlene Sadler [facility] Medical 01/16/2020 12:00:00 AM EST HILDA ([facility]) Merlene Sadler, [employer]: [address], [place] [address], Ph. Attender: Merlene Sadler [facility] Medical 01/16/2020 12:00:00 AM EST HILDA ([facility]) Merlene Sadler, [employer]: [address], [place] [address], Ph. Attender: Merlene Sadler [facility] Medical 01/16/2020 12:00:00 AM EST HILDA ([facility]) Merlene Sadler, [employer]: [address], [place] [address], Ph. Attender: Merlene Sadler [facility] Medical 01/16/2020 12:00:00 AM EST HILDA ([facility]) Merlene Sadler, [employer]: [address], [place] [address], Ph. Attender: Merlene Sadler [facility] Medical 01/16/2020 12:00:00 AM EST HILDA ([facility]) Merlene Sadler, [employer]: [address], [place] [address], Ph. Attender: Merlene Sadler [facility] Medical 01/16/2020 12:00:00 AM EST HILDA ([facility]) Merlene Sadler, [employer]: [address], [place] [address], Ph. Attender: Merlene Sadler [facility] Medical 01/16/2020 12:00:00 AM EST HILDA ([facility]) Merlene Sadler, [employer]: [address], [place] [address], Ph. Attender: Merlene Sadler [facility] Medical 01/16/2020 12:00:00 AM EST HILDA ([facility]) Merlene Sadler, [employer]: [address], [place] [address], Ph. Attender: Merlene Sadler [facility] Medical 01/16/2020 12:00:00 AM EST HILDA ([facility]) Merlene Sadler, [employer]: [address], [place] [address], Ph. Attender: Merlene Sadler [facility] Medical 01/16/2020 12:00:00 AM EST HILDA ([facility]) Merlene Sadler, [employer]: [address], [place] [address], Ph. Attender: Merlene Sadler [facility] Medical 01/16/2020 12:00:00 AM EST HILDA ([facility]) Merlene Sadler, [employer]: [address], [place] [address], Ph. Attender: Merlene Sadler [facility] Medical 01/16/2020 12:00:00 AM EST HILDA ([facility]) Merlene Sadler, [employer]: [address], [place] [address], Ph. Attender: Merlene Sadler [facility] Medical 01/16/2020 12:00:00 AM EST HILDA ([facility]) Merlene Sadler, [employer]: [address], [place] [address], Ph. Attender: Merlene Sadler [facility] Medical 01/16/2020 12:00:00 AM EST HILDA ([facility]) Merlene Sadler, [employer]: [address], [place] [address], Ph. Attender: Merlene Sadler [facility] Medical 01/16/2020 12:00:00 AM EST HILDA ([facility]) Merlene Sadler [employer]: [address], [place] [address], Ph. Attender: Merlene Sadler [facility] Medical 01/16/2020 12:00:00 AM EST HILDA ([facility]) Merlene Sadler, [employer]: [address], [place] [address], Ph. Attender: Merlene Sadler [facility] Medical 01/16/2020 12:00:00 AM EST HILDA ([facility]) Merlene Sadler, [employer]: [address], [place] [address], Ph. Attender: Merlene Sadler [facility] Medical 01/16/2020 12:00:00 AM EST HILDA ([facility]) Merlene Sadler, [employer]: [address], [place] [address], Ph. Attender: Merlene Sadler [facility] Medical 01/16/2020 12:00:00 AM EST HILDA ([facility]) Merlene Sadler, [facility]: [address], [place] [address], Ph. Attender: Merlene Sadler [facility] Medical 01/16/2020 12:00:00 AM EST HILDA ([facility]) Merlene Sadler, [employer]: [address], [place] [address], Ph. Attender: Merlene Sadler [facility] Medical 01/16/2020 12:00:00 AM EST HILDA ([facility]) Merlene Sadler, [facility]: [address], [place] [address], Ph. Attender: Merlene Sadler [facility] Medical 01/16/2020 12:00:00 AM EST HILDA ([facility]) Merlene Sadler, [facility]: [address], [place] [address], Ph. Attender: Merlene Sadler [facility] Medical 01/16/2020 12:00:00 AM EST HILDA ([facility]) Merlene Sadler, [facility]: [address], [place] [address], Ph. Attender: Merlene Sadler [facility] Medical 01/16/2020 12:00:00 AM EST HILDA ([facility]) Merlene Sadler, [facility]: [address], [place] [address], Ph. Attender: Merlene Sadler [facility] Medical 01/16/2020 12:00:00 AM EST HILDA ([facility]) Merlene Sadler, [employer]: [address], [place] [address], Ph. Attender: Merlene Sadler [facility] Medical 01/16/2020 12:00:00 AM EST HILDA ([facility]) Merlene Sadler, [employer]: [address], [place] [address], Ph. Attender: Merlene Sadler [facility] Medical 01/16/2020 12:00:00 AM EST HILDA ([facility]) Merlene Sadler, [employer]: [address], [place] [address], Ph. Attender: Merlene Sadler [facility] Medical 01/16/2020 12:00:00 AM EST HILDA ([facility]) Merlene Sadler, [employer]: [address], [place] [address], Ph. Attender: Merlene Sadler [facility] Medical 01/16/2020 12:00:00 AM EST HILDA ([facility]) Merlene Sadler, [employer]: [address], [place] [address], Ph. Attender: Merlene Sadler [facility] Medical 01/08/2020 12:00:00 AM EST HILDA ([facility]) Merlene Sadler, [employer]: [address], [place] [address], Ph. Attender: Merlene Sadler [facility] Medical 01/08/2020 12:00:00 AM EST HILDA ([facility]) Merlene Sadler, [facility]: [address], [place] [address], Ph. Attender: Merlene Sadler [facility] Medical 01/08/2020 12:00:00 AM EST HILDA ([facility]) Merlene Sadler, [employer]: [address], [place] [address], Ph. Attender: Merlene Sadler [facility] Medical 01/08/2020 12:00:00 AM EST HILDA ([facility]) Merlene Sadler, [employer]: [address], [place] [address], Ph. Attender: Merlene Sadler [facility] Medical 01/08/2020 12:00:00 AM EST HILDA ([facility]) Merlene Sadler, [employer]: [address], [place] [address], Ph. Attender: Merlene Sadler [facility] Medical 01/08/2020 12:00:00 AM EST HILDA ([facility]) Merlene Sadler, [facility]: [address], [place] [address], Ph. Attender: Merlene Sadler [facility] Medical 01/08/2020 12:00:00 AM EST HILDA ([facility]) Merlene Sadler, [facility]: [address], [place] [address], Ph. Attender: Merlene Sadler [facility] Medical 01/08/2020 12:00:00 AM EST HILDA ([facility]) Merlene Sadler, [facility]: [address], [place] [address], Ph. Attender: Merlene Sadler [facility] Medical 01/08/2020 12:00:00 AM EST HILDA ([facility]) Merlene Sadler, [employer]: [address], [place] [address], Ph. Attender: Merlene Sadler [facility] Medical 01/08/2020 12:00:00 AM EST HILDA ([facility]) Merlene Sadler, [facility]: [address], [place] [address], Ph. Attender: Merlene Sadler [facility] Medical 01/08/2020 12:00:00 AM EST HILDA ([facility]) Merlene Sadler, [facility]: [address], [place] [address], Ph. Attender: Merlene Sadler [facility] Medical 01/08/2020 12:00:00 AM EST HILDA ([facility]) Merlene Sadler, [facility]: [address], [place] [address], Ph. Attender: Merlene Sadler [facility] Medical 01/08/2020 12:00:00 AM EST HILDA ([facility]) Merlene Sadler, [facility]: [address], [place] [address], Ph. Attender: Merlene Sadler [facility] Medical 01/08/2020 12:00:00 AM EST HILDA ([facility]) Merlene Sadler, [facility]: [address], [place] [address], Ph. Attender: Merlene Sadler [facility] Medical 01/08/2020 12:00:00 AM EST HILDA ([facility]) Merlene Sadler, [employer]: [address], [place] [address], Ph. Attender: Merlene Sadler [facility] Medical 01/08/2020 12:00:00 AM EST HILDA ([facility]) Merlene Sadler, [employer]: [address], [place] [address], Ph. Attender: Merlene Sadler [facility] Medical 01/08/2020 12:00:00 AM EST HILDA ([facility]) Merlene Sadler, [employer]: [address], [place] [address], Ph. Attender: Merlene Sadler [facility] Medical 01/08/2020 12:00:00 AM EST HILDA ([facility]) Merlene Sadler, [employer]: [address], [place] [address], Ph. Attender: Merlene Sadler [facility] Medical 01/08/2020 12:00:00 AM EST HILDA ([facility]) Merlene Sadler, [employer]: [address], [place] [address], Ph. Attender: Merlene Sadler [facility] Medical 01/08/2020 12:00:00 AM EST HILDA ([facility]) Merlene Sadler, [employer]: [address], [place] [address], Ph. Attender: Merlene Sadler [facility] Medical 01/08/2020 12:00:00 AM EST HILDA ([facility]) Merlene Sadler, [employer] SUPERVISOR: [address], [place] [address], Ph. Attender: Merlene Sadler [facility] Medical 01/08/2020 12:00:00 AM EST HILDA ([facility]) Merlene Sadler, [employer] SUPERVISOR: [address], [place] [address], Ph. Attender: Merlene Sadler [facility] Medical 01/08/2020 12:00:00 AM EST HILDA ([facility]) Merlene Sadler [employer] SUPER[employer]: [address], [place] [address], Ph. Attender: Merlene Sadler [facility] Medical 01/08/2020 12:00:00 AM EST HILDA ([facility]) Merlene Sadler, [employer] SUPER[employer]: [address], [place] [address], Ph. Attender: Merlene Sadler [facility] Medical 01/08/2020 12:00:00 AM EST HILDA ([facility]) Merlene Sadler, [employer] SUPERVIS[employer]: [address], [place] [address], Ph. Attender: Merlene Sadler [facility] Medical 01/08/2020 12:00:00 AM EST HILDA ([facility]) Merlene Sadler, [employer] SUPER[employer]: [address], [place] [address], Ph. Attender: Merlene Sadler [facility] Medical 01/08/2020 12:00:00 AM EST HILDA ([facility]) Merlene Sadler, [facility]: [address], [place] [address], Ph. Attender: Merlene Sadler [facility] Medical 01/08/2020 12:00:00 AM EST HILDA ([facility]) Merlene Sadler, [employer] SUPER[employer]: [address], [place] [address], Ph. Attender: Merlene Sadler [facility] Medical 01/08/2020 12:00:00 AM EST HILDA ([facility]) Merlene Sadler, [facility]: [address], [place] [address], Ph. Attender: Merlene Sadler [facility] [place] [facility] Medical 01/08/2020 12:00:00 AM EST HILDA ([facility]) Merlene Sadler, [facility]: [address], [place] [address], Ph. Attender: Merlene Sadler [facility] [place] [facility] [facility] Medical 01/08/2020 12:00:00 AM EST HILDA ([facility]) Merlene Sadler, [facility]: [address], [place] [address], Ph. Attender: Merlene Sadler [facility] Medical 01/08/2020 12:00:00 AM EST HILDA ([facility]) Merlene Sadler, [facility]: [address], [place] [address], Ph. Attender: Merlene Sadler [place] [facility] Medical 01/08/2020 12:00:00 AM EST HILDA ([facility]) Outpatient Attender: PALOMO LOVE MD Main Office 01/07/2020 12:00:00 PM EST MEDJUAN RAMON ([facility]) Terry Quiroga RPA-C: [address], [place] [address], Ph. Attender: TERRY QUIROGA RPA-C [facility] Medical 01/06/2020 12:00:00 AM EST HILDA ([facility]) Terry Quiroga RPA-C: [address], [place] [address], Ph. Attender: TERRY QUIROGA RPA-C [facility] Medical 01/06/2020 12:00:00 AM EST HILDA ([facility]) Terry Quiroga RPA-C: [address], [place] [address], Ph. Attender: TERRY WASHBURNC [facility] Medical 01/06/2020 12:00:00 AM EST HILDA ([facility]) Terry Quiroga RPA-C: [address], [place] [address], Ph. Attender: TERRY QUIROGA RPA-C [facility] Medical 01/06/2020 12:00:00 AM EST HILDA ([facility]) Terry Quiroga RPA-C: [address], [place] [address], Ph. Attender: TERRY QUIROGA RPA-C [facility] Medical 01/06/2020 12:00:00 AM EST HILDA ([facility]) Terry D Quiroga, RPA-C: [address], [place] [address], Ph. Attender: TERRY QUIROGA RPA-C [facility] Medical 01/06/2020 12:00:00 AM EST HILDA ([facility]) Terry Quiroga, RPA-C: [address], [place] [address], Ph. Attender: TERRY QUIROGA RPA-C [facility] Medical 01/06/2020 12:00:00 AM EST HILDA ([facility]) Terry Quiroga, RPA-C: [address], [place] [address], Ph. Attender: TERRY QUIROGA RPA-C [facility] Medical 01/06/2020 12:00:00 AM EST HILDA ([facility]) Terry Quiroga, RPA-C: [address], [place] [address], Ph. Attender: TERRY QUIROGA RPA-C [facility] Medical 01/06/2020 12:00:00 AM EST HILDA ([facility]) Terry Quiroga RPA-C: [address], [place] [address], Ph. Attender: TERRY QUIROGA RPA-C [facility] Medical 01/06/2020 12:00:00 AM EST HILDA ([facility]) Terry Quiroga, RPA-C: [address], [place] [address], Ph. Attender: TERRY QUIROGA RPA-C [facility] Medical 01/06/2020 12:00:00 AM EST HILDA ([facility]) Terry Quiroga, RPA-C: [address], [place] [address], Ph. Attender: TERRY QUIROGA RPA-C [facility] Medical 01/06/2020 12:00:00 AM EST HILDA ([facility]) Terry Quiroga, RPA-C: [address], [place] [address], Ph. Attender: TERRY QUIROGA RPA-C [facility] Medical 01/06/2020 12:00:00 AM EST HILDA ([facility]) Terry Quiroga RPA-C: [address], [place] [address], Ph. Attender: TERRY QUIROGA RPA-C [facility] Medical 01/06/2020 12:00:00 AM EST HILDA ([facility]) Terry Quiroga, RPA-C: [address], [place] [address], Ph. Attender: TERRY QUIROGA RPA-C [facility] Medical 01/06/2020 12:00:00 AM EST HILDA ([facility]) Terry Quiroga, R[facility]C: [address], [place] [address], Ph. Attender: TERRY QUIROGA RPA-C [facility] Medical 01/06/2020 12:00:00 AM EST HILDA ([facility]) Terry Quiroga, R[facility]C: [address], [place] [address], Ph. Attender: TERRY QUIROGA RPA-C [facility] Medical 01/06/2020 12:00:00 AM EST HILDA ([facility]) Terry Quiroga RPA-C: [address], [place] [address], Ph. Attender: TERRY QUIROGA RPA-C [facility] Medical 01/06/2020 12:00:00 AM EST HILDA ([facility]) Terry Quiroga RPA-C: [address], [place] [address], Ph. Attender: TERRY QUIROGA RPA-C [facility] Medical 01/06/2020 12:00:00 AM EST HILDA ([facility]) Terry Quiroga RPA-C: [address], [place] [address], Ph. Attender: TERRY QUIROGA RPA-C [facility] Medical 01/06/2020 12:00:00 AM EST HILDA ([facility]) Terry Quiroga RPA-C: [address], [place] [address], Ph. Attender: TERRY QUIROGA RPA-C [facility] Medical 01/06/2020 12:00:00 AM EST HILDA ([facility]) Terry Quiroga, RPA-C: [address], [place] [address], Ph. Attender: TERRY QUIROGA RPA-C [facility] Medical 01/06/2020 12:00:00 AM EST HILDA ([facility]) Terry Quiroga RPA-C: [address], [place] [address], Ph. Attender: TERRY QUIROGA RPA-C [facility] Medical 01/06/2020 12:00:00 AM EST HILDA ([facility]) Terry Quiroga RPA-C: [address], [place] [address], Ph. Attender: TERRY QUIROGA RPA-C [facility] Medical 01/06/2020 12:00:00 AM EST HILDA ([facility]) Terry Quiroga RPA-C: [address], [place] [address], Ph. Attender: TERRY QUIROGA RPA-C [facility] Medical 01/06/2020 12:00:00 AM EST HILDA ([facility]) Terry Quiroga RPA-C: [address], [place] [address], Ph. Attender: TERRY QUIROGA RPA-C [facility] Medical 01/06/2020 12:00:00 AM EST HILDA ([facility]) Terry Quiroga RPA-C: [address], [place] [address], Ph. Attender: TERRY QUIROGA RPA-C [facility] Medical 01/06/2020 12:00:00 AM EST HILDA ([facility]) Terry Quiroga RPA-C: [address], [place] [address], Ph. Attender: TERRY QUIROGA RPA-C [facility] Medical 01/06/2020 12:00:00 AM EST HILDA ([facility]) Terry Quiroga RPA-C: [address], [place] [address], Ph. Attender: TERRY QUIROGA RPA-C [facility] Medical 01/06/2020 12:00:00 AM EST HILDA ([facility]) Terry Quiroga, R[facility]C: [address], [place] [address], Ph. Attender: TERRY QUIROGA RPA-C [facility] Medical 01/06/2020 12:00:00 AM EST HILDA ([facility]) Terry Quiroga RPA-C: [address], [place] [address], Ph. Attender: TERRY QUIROGA RPA-C [facility] Medical 01/06/2020 12:00:00 AM EST HILDA ([facility]) Terry Quiroga, RPA[facility]C: [address], [place] [address], Ph. Attender: TERRY QUIROGA RPA-C [facility] Medical 01/06/2020 12:00:00 AM EST HILDA ([facility]) Terry Quiroga RPA-C: [address], [place] [address], Ph. Attender: TERRY QUIROGA RPA-C [facility] Medical 01/06/2020 12:00:00 AM EST HILDA ([facility]) Terry Quiroga, RPA-C: [address], [place] [address], Ph. Attender: TERRY QUIROGA RPA-C [facility] Medical 12/31/2019 12:00:00 AM EST HILDA ([facility]) Terry Quiroga, RPA-C: [address], [address], [place] [address], Ph. Attender: TERRY QUIROGA RPA-C [facility] Medical 12/31/2019 12:00:00 AM EST HILDA ([facility]) Terry Quiroga, RPA-C: [address], [address], [place] [address], Ph. Attender: TERRY QUIROGA RPA-C [facility] Medical 12/31/2019 12:00:00 AM EST HILDA ([facility]) Terry Quiroga RPA-C: [address], [place] [address], Ph. Attender: TERRY QUIROGA RPA-C [facility] Medical 12/31/2019 12:00:00 AM EST HILDA ([facility]) Terry Quiroga, RPA-C: [address], [address], [place] [address], Ph. Attender: TERRY QUIROGA RPA-C [facility] Medical 12/31/2019 12:00:00 AM EST HILDA ([facility]) Terry Quiroga, RPA-C: [address], [place] [address], Ph. Attender: TERRY QUIROGA RPA-C [facility] Medical 12/31/2019 12:00:00 AM EST HILDA ([facility]) Terry Quiroga RPA-C: [address], [place] [address], Ph. Attender: TERRY QUIROGA RPA-C [facility] Medical 12/31/2019 12:00:00 AM EST HILDA ([facility]) Terry Quiroga RPA-C: [address], [place] [address], Ph. Attender: TERRY QUIROGA RPA-C [facility] Medical 12/31/2019 12:00:00 AM EST HILDA ([facility]) Terry Quiroga RPA-C: [address], [place] [address], Ph. Attender: TERRY QUIROGA RPA-C [facility] Medical 12/31/2019 12:00:00 AM EST HILDA ([facility]) Terry Quiroga RPA-C: [address], [place] [address], Ph. Attender: TERRY QUIROGA RPA-C [facility] Medical 12/31/2019 12:00:00 AM EST HILDA ([facility]) Terry Quiroga RPA-C: [address], [place] [address], Ph. Attender: TERRY QUIROGA RPA-C [facility] Medical 12/31/2019 12:00:00 AM EST HILDA ([facility]) Terry Quiroga, RPA-C: [address], [address], [place] [address], Ph. Attender: TERRY QUIROGA RPA-C [facility] Medical 12/31/2019 12:00:00 AM EST HILDA ([facility]) Terry Quiroga RPA-C: [address], [place] [address], Ph. Attender: TERRY QUIROGA RPA-C [facility] Medical 12/31/2019 12:00:00 AM EST HILDA ([facility]) Terry Quiroga RPA-C: [address], [place] [address], Ph. Attender: TERRY QUIROGA RPA-C [facility] Medical 12/31/2019 12:00:00 AM EST HILDA ([facility]) Terry Quiroga RPA-C: [address], [place] [address], Ph. Attender: TERRY QUIROGA RPA-C [facility] Medical 12/31/2019 12:00:00 AM EST HILDA ([facility]) Terry Quiroga RPA-C: [address], [place] [address], Ph. Attender: TERRY QUIROGA RPA-C [facility] Medical 12/31/2019 12:00:00 AM EST HILDA ([facility]) Terry Quiroga, R[facility]C: [address], [place] [address], Ph. Attender: TERRY QUIROGA RPA-C [facility] Medical 12/31/2019 12:00:00 AM EST HILDA ([facility]) Terry Quiroga RPA-C: [address], [place] [address], Ph. Attender: TERRY QUIROGA RPA-C [facility] Medical 12/31/2019 12:00:00 AM EST HILDA ([facility]) Terry D Quiroga, RPA-C: [address], [place] [address], Ph. Attender: TERRY QUIROGA RPA-C [facility] Medical 12/31/2019 12:00:00 AM EST HILDA ([facility]) Terry Quiroga, RPA-C: [address], [place] [address], Ph. Attender: TERRY QUIROGA RPA-C [facility] Medical 12/31/2019 12:00:00 AM EST HILDA ([facility]) Terry Quiroga RPA-C: [address], [place] [address], Ph. Attender: TERRY QUIROGA RPA-C [facility] Medical 12/31/2019 12:00:00 AM EST HILDA ([facility]) Terry Quiroga, RPA-C: [address], [place] [address], Ph. Attender: TERRY QUIROGA RPA-C [facility] Medical 12/31/2019 12:00:00 AM EST HILDA ([facility]) Terry Quiroga RPA-C: [address], [place] [address], Ph. Attender: TERRY QUIROGA RPA-C [facility] Medical 12/31/2019 12:00:00 AM EST HILDA ([facility]) Terry Quiroga, RPA-C: [address], [place] [address], Ph. Attender: TERRY QUIROGA RPA-C [facility] Medical 12/31/2019 12:00:00 AM EST HILDA ([facility]) Terry Quiroga, R[facility]C: [address], [place] [address], Ph. Attender: TERRY QUIROGA RPA-C [facility] Medical 12/31/2019 12:00:00 AM EST HILDA ([facility]) Terry Quiroga, RPA[facility]C: [address], [place] [address], Ph. Attender: TERRY QUIROGA RPA-C [facility] Medical 12/31/2019 12:00:00 AM EST HILDA ([facility]) Terry Quiroga, [facility]: [address], [place] [address], Ph. Attender: TERRY QUIROGA RPA-C [facility] Medical 12/31/2019 12:00:00 AM EST HILDA ([facility]) Terry Quiroga, [facility]: [address], [place] [address], Ph. Attender: TERRY QUIROGA RPA-C [facility] Medical 12/31/2019 12:00:00 AM EST HILDA ([facility]) Terry Quiroga, [facility]: [address], [place] [address], Ph. Attender: TERRY QUIROGA RPA-C [facility] Medical 12/31/2019 12:00:00 AM EST HILDA ([facility]) Terry Quiroga RPA-C: [address], [place] [address], Ph. Attender: TERRY QUIROGA RPA-C [facility] Medical 12/31/2019 12:00:00 AM EST HILDA ([facility]) Terry Quiroga RPA-C: [address], [place] [address], Ph. Attender: TERRY QUIROGA RPA-C [facility] Medical 12/31/2019 12:00:00 AM EST HILDA ([facility]) Terry Quiroga RPA-C: [address], [place] [address], Ph. Attender: TERRY QUIROGA RPA-C [facility] Medical 12/31/2019 12:00:00 AM EST HILDA ([facility]) Terry Quiroga RPA-C: [address], [place] [address], Ph. Attender: TERRY QUIROGA RPA-C [facility] Medical 12/31/2019 12:00:00 AM EST HILDA ([facility]) Merlenemarie Sadler, [employer]: [address], [place] [address], Ph. Attender: Merlene Sadler [facility] Medical 12/26/2019 12:00:00 AM EST HILDA ([facility]) Merlene Sadler, [employer]: [address], [place] [address], Ph. Attender: Merlene Sadler [facility] Medical 12/26/2019 12:00:00 AM EST HILDA ([facility]) Merlene Sadler, [employer]: [address], [place] [address], Ph. Attender: Merlene Sadler [facility] Medical 12/26/2019 12:00:00 AM EST HILDA ([facility]) Merlene Sadler, [facility]: [address], [place] [address], Ph. Attender: Merlene Sadler [facility] Medical 12/26/2019 12:00:00 AM EST HILDA ([facility]) Merlene Sadler, [facility]: [address], [place] [address], Ph. Attender: Merlene Sadler [facility] Medical 12/26/2019 12:00:00 AM EST HILDA ([facility]) Merlene Sadler, [facility]: [address], [place] [address], Ph. Attender: Merlene Sadler [facility] Medical 12/26/2019 12:00:00 AM EST HILDA ([facility]) Merlene Sadler, [facility]: [address], [place] [address], Ph. Attender: Merlene Sadler [facility] Medical 12/26/2019 12:00:00 AM EST HILDA ([facility]) Merlene Sadler, [facility]: [address], [place] [address], Ph. Attender: Merlene Sadler [facility] Medical 12/26/2019 12:00:00 AM EST HILDA ([facility]) Merlene Sadler, [facility]: [address], [place] [address], Ph. Attender: Merlene Sadler [facility] Medical 12/26/2019 12:00:00 AM EST HILDA ([facility]) Merlene Sadler, [employer]: [address], [place] [address], Ph. Attender: Merlene Sadler [facility] Medical 12/26/2019 12:00:00 AM EST HILDA ([facility]) Merlene Sadler, [employer]: [address], [place] [address], Ph. Attender: Merlene Sadler [facility] [place] [facility] Medical 12/26/2019 12:00:00 AM EST HILDA ([facility]) Merlene Sadler, [employer]: [address], [place] [address], Ph. Attender: Merlene Sadler [facility] Medical 12/26/2019 12:00:00 AM EST HILDA ([facility]) Merlene Sadler, [employer]: [address], [place] [address], Ph. Attender: Merlene Sadler [facility] Medical 12/26/2019 12:00:00 AM EST HILDA ([facility]) Merlene Sadler, [employer]: [address], [place] [address], Ph. Attender: Merlene Sadler [facility] Medical 12/26/2019 12:00:00 AM EST HILDA ([facility]) Merlene Sadler, [employer]: [address], [place] [address], Ph. Attender: Merlene Sadler [facility] Medical 12/26/2019 12:00:00 AM EST HILDA ([facility]) Merlene Sadler, [facility]: [address], [place] [address], Ph. Attender: Merlene Sadler [facility] [place] [facility] [facility] Medical 12/26/2019 12:00:00 AM EST HILDA ([facility]) Merlene Sadler, [employer]: [address], [place] [address], Ph. Attender: Merlene Sadler [facility] [place] [facility] Medical 12/26/2019 12:00:00 AM EST HILDA ([facility]) Merlene Sadler, [employer]: [address], [place] [address], Ph. Attender: Merlene Sadler [facility] [place] [facility] [facility] Medical 12/26/2019 12:00:00 AM EST HILDA ([facility]) Merlene Sadler, [employer]: [address], [place] [address], Ph. Attender: Merlene Sadler [facility] [place] [facility] [facility] Medical 12/26/2019 12:00:00 AM EST HILDA ([facility]) Merlene Sadler, [facility]: [address], [place] [address], Ph. Attender: Merlene Sadler [facility] Medical 12/26/2019 12:00:00 AM EST HILDA ([facility]) Merlene Sadler, [facility]: [address], [place] [address], Ph. Attender: Merlene Sadler [facility] Medical 12/26/2019 12:00:00 AM EST HILDA ([facility]) Merlene Sadler, [facility]: [address], [place] [address], Ph. Attender: Merlene Sadler [facility] [place] [facility] Medical 12/26/2019 12:00:00 AM EST HILDA ([facility]) Merlene Sadler, [facility]: [address], [place] [address], Ph. Attender: Merlene Sadler [facility] [place] [facility] Medical 12/26/2019 12:00:00 AM EST HILDA ([facility]) Merlene Sadler, [facility]: [address], [place] [address], Ph. Attender: Merlene Sadler [facility] Medical 12/26/2019 12:00:00 AM EST HILDA ([facility]) Merlene Sadler, [facility]: [address], [place] [address], Ph. Attender: Merlene Sadler [facility] Medical 12/26/2019 12:00:00 AM EST HILDA ([facility]) Merlene Sadler, [facility]: [address], [place] [address], Ph. Attender: Merlene Sadler [facility] Medical 12/26/2019 12:00:00 AM EST HILDA ([facility]) Merlene Sadler, [facility]: [address], [place] [address], Ph. Attender: Merlene Sadler [facility] Medical 12/26/2019 12:00:00 AM EST HILDA ([facility]) Merlene Sadler, [facility]: [address], [place] [address], Ph. Attender: Merlene Sadler [facility] Medical 12/26/2019 12:00:00 AM EST HILDA ([facility]) Merlene Sadler, [employer]: [address], [place] [address], Ph. Attender: Merlene Sadler [facility] Medical 12/26/2019 12:00:00 AM EST HILDA ([facility]) Merlene Sadler, [employer]: [address], [place] [address], Ph. Attender: Merlene Sadler [facility] Medical 12/26/2019 12:00:00 AM EST HILDA ([facility]) Merlene Sadler, [employer]: [address], [place] [address], Ph. Attender: Merlene Sadler [facility] Medical 12/26/2019 12:00:00 AM EST HILDA ([facility]) Merlene Sadler, [employer]: [address] [address], [place] [address], Ph. Attender: Merlene Sadler [facility] Medical 12/26/2019 12:00:00 AM EST HILDA ([facility]) Merlene Sadler, [employer]: [address], [place] [address], Ph. Attender: Merlene Sadler [facility] Medical 12/26/2019 12:00:00 AM EST HILDA ([facility]) Merlene Sadler, [employer]: [address], [place] [address], Ph. Attender: Merlene Sadler [facility] Medical 12/26/2019 12:00:00 AM EST HILDA ([facility]) Merlene Sadler, [employer]: [address], [place] [address], Ph. Attender: Merlene Sadler [facility] Medical 12/19/2019 12:00:00 AM EST HILDA ([facility]) Merlene Sadler, [employer]: [address], [place] [address], Ph. Attender: Merlene Sadler [facility] Medical 12/19/2019 12:00:00 AM EST HILDA ([facility]) Merlene Sadler, [employer]: [address], [place] [address], Ph. Attender: Merlene Sadler [facility] Medical 12/19/2019 12:00:00 AM EST HILDA ([facility]) Merlene Sadler, [employer]: [address], [place] [address], Ph. Attender: Merlene Sadler [facility] Medical 12/19/2019 12:00:00 AM EST HILDA ([facility]) Merlene Sadler, [employer]: [address], [place] [address], Ph. Attender: Merlene Sadler [facility] Medical 12/19/2019 12:00:00 AM EST HILDA ([facility]) Merlene Sadler, [employer]: [address], [place] [address], Ph. Attender: Merlene Sadler [facility] Medical 12/19/2019 12:00:00 AM EST HILDA ([facility]) Merlene Sadler, [facility]: [address], [place] [address], Ph. Attender: Merlene Sadler [facility] Medical 12/19/2019 12:00:00 AM EST HILDA ([facility]) Merlene Sadler, [employer]: [address], [place] [address], Ph. Attender: Merlene Sadler [facility] Medical 12/19/2019 12:00:00 AM EST HILDA ([facility]) Merlene Sadler, [facility]: [address], [place] [address], Ph. Attender: Merlene Sadler [facility] Medical 12/19/2019 12:00:00 AM EST HILDA ([facility]) Merlene Sadler, [facility]: [address], [place] [address], Ph. Attender: Merlene Sadler [facility] Medical 12/19/2019 12:00:00 AM EST HILDA ([facility]) Merlene Sadler, [facility]: [address], [place] [address], Ph. Attender: Merlene Sadler [facility] Medical 12/19/2019 12:00:00 AM EST HILDA ([facility]) Merlene Sadler, [employer]: [address], [place] [address], Ph. Attender: Merlene Sadler [facility] Medical 12/19/2019 12:00:00 AM EST HILDA ([facility]) Merlene Sadler, [facility]: [address], [place] [address], Ph. Attender: Merlene Sadler [facility] Medical 12/19/2019 12:00:00 AM EST HILDA ([facility]) Merlene Sadler, [employer]: [address], [place] [address], Ph. Attender: Merlene Sadler [facility] Medical 12/19/2019 12:00:00 AM EST HILDA ([facility]) Merlene Sadler, [employer]: [address], [place] [address], Ph. Attender: Merlene Sadler [facility] Medical 12/19/2019 12:00:00 AM EST HILDA ([facility]) Merlene Sadler, [facility]: [address], [place] [address], Ph. Attender: Merlene Sadler [facility] Medical 12/19/2019 12:00:00 AM EST HILDA ([facility]) Merlene Sadler [facility]: [address], [place] [address], Ph. Attender: Merlene Sadler [facility] Medical 12/19/2019 12:00:00 AM EST HILDA ([facility]) Merlene Sadler, [employer]: [address], [place] [address], Ph. Attender: Merlene Sadler [facility] Medical 12/19/2019 12:00:00 AM EST HILDA ([facility]) Merlene Sadler, [facility]: [address], [place] [address], Ph. Attender: Merlene Sadler [facility] Medical 12/19/2019 12:00:00 AM EST HILDA ([facility]) Merlene Sadler, [employer]: [address], [place] [address], Ph. Attender: Merlene Sadler [facility] Medical 12/19/2019 12:00:00 AM EST HILDA ([facility]) Merlene Sadler, [employer]: [address], [place] [address], Ph. Attender: Merlene Sadler [facility] Medical 12/19/2019 12:00:00 AM EST HILDA ([facility]) Merlene Sadler, [employer]PER[employer]: [address], [place] [address], Ph. Attender: Merlene Sadler [facility] Medical 12/19/2019 12:00:00 AM EST HILDA ([facility]) Merlene Sadler [employer]: [address], [place] [address], Ph. Attender: Merlene Sadler [facility] Medical 12/19/2019 12:00:00 AM EST HILDA ([facility]) Merlene Sadler, [employer]: [address], [place] [address], Ph. Attender: Merlene Sadler [facility] Medical 12/19/2019 12:00:00 AM EST HILDA ([facility]) Merlene Sadler, [facility]: [address], [place] [address], Ph. Attender: Merlene Sadler [facility] Medical 12/19/2019 12:00:00 AM EST HILDA ([facility]) Merlene Sadlre, [employer]: [address], [place] [address], Ph. Attender: Merlene Sadler [facility] Medical 12/19/2019 12:00:00 AM EST HILDA ([facility]) Merlene Sadler, [facility]: [address], [place] [address], Ph. Attender: Merlene Sadler [facility] Medical 12/19/2019 12:00:00 AM EST HILDA ([facility]) Merlene Sadler, [facility]: [address], [place] [address], Ph. Attender: Merlene Sadler [facility] Medical 12/19/2019 12:00:00 AM EST HILDA ([facility]) Merlene Sadler, [facility]: [address], [place] [address], Ph. Attender: Merlene Sadler [facility] Medical 12/19/2019 12:00:00 AM EST HILDA ([facility]) Merlene Sadler, [facility]: [address], [place] [address], Ph. Attender: Merlene Sadler [facility] Medical 12/19/2019 12:00:00 AM EST HILDA ([facility]) Merlene Sadler, [employer]: [address], [place] [address], Ph. Attender: Merlene Sadler [facility] Medical 12/19/2019 12:00:00 AM EST HILDA ([facility]) Merlene Sadler, [employer]: [address], [place] [address], Ph. Attender: Merlene Sadler [facility] Medical 12/19/2019 12:00:00 AM EST HILDA ([facility]) Merlene Sadler, [employer]: [address], [place] [address], Ph. Attender: Merlene Sadler [facility] Medical 12/19/2019 12:00:00 AM EST HILDA ([facility]) Merlene Sadler, [employer]PER[employer]: [address], [place] [address], Ph. Attender: Merlene Sadler [facility] Medical 12/19/2019 12:00:00 AM EST HILDA ([facility]) Merlene Sadler, [employer]: [address], [place] [address], Ph. Attender: Merlene Sadler [facility] Medical 12/19/2019 12:00:00 AM EST HILDA ([facility]) Merlene Sadler, [employer]PER[employer]: [address], [place] [address], Ph. Attender: Merlene Sadler [facility] Medical 12/19/2019 12:00:00 AM EST HILDA ([facility]) Merlene Sadler, [employer]: [address], [place] [address], Ph. Attender: Merlene Sadler [facility] Medical 12/18/2019 12:00:00 AM EST HILDA ([facility]) Merlene Sadler, [employer]: [address], [place] [address], Ph. Attender: Merlene Sadler [facility] Medical 12/18/2019 12:00:00 AM EST HILDA ([facility]) Merlene Sadler, [employer]PER[employer]: [address], [place] [address], Ph. Attender: Merlene Sadler [facility] Medical 12/18/2019 12:00:00 AM EST HILDA ([facility]) Merlene Sadler, [employer]PER[employer]: [address], [place] [address], Ph. Attender: Merlene Sadler [facility] Medical 12/18/2019 12:00:00 AM EST HILDA ([facility]) Merlene Sadler, [employer]PER[employer]: [address], [place] [address], Ph. Attender: Merlene Sadler [facility] Medical 12/18/2019 12:00:00 AM EST HILDA ([facility]) Merlene Sadler, [employer]PER[employer]: [address], [place] [address], Ph. Attender: Merlene Sadler [facility] Medical 12/18/2019 12:00:00 AM EST HILDA ([facility]) Merlene Sadler, [employer]PER[employer]: [address], [place] [address], Ph. Attender: Merlene Sadler [facility] Medical 12/18/2019 12:00:00 AM EST HILDA ([facility]) Merlene Sadler, [employer]PER[employer]: [address], [place] [address], Ph. Attender: Merlene Sadler [facility] Medical 12/18/2019 12:00:00 AM EST HILDA ([facility]) Merlene Sadler, [employer] SUPER[employer]: [address], [place] [address], Ph. Attender: Merlene Sadler [facility] Medical 12/18/2019 12:00:00 AM EST HILDA ([facility]) Merlene Sadler, [facility]: [address], [place] [address], Ph. Attender: Merlene Sadler [facility] Medical 12/18/2019 12:00:00 AM EST HILDA ([facility]) Merlene Sadler, [facility]: [address], [place] [address], Ph. Attender: Merlene Sadler [facility] Medical 12/18/2019 12:00:00 AM EST HILDA ([facility]) Merlene Sadler, [facility]: [address], [place] [address], Ph. Attender: Merlene Sadler [facility] Medical 12/18/2019 12:00:00 AM EST HILDA ([facility]) Merlene Sadler, [employer]: [address], [place] [address], Ph. Attender: Merlene Sadler [facility] Medical 12/18/2019 12:00:00 AM EST HILDA ([facility]) Merlene Sadler, [employer]: [address], [place] [address], Ph. Attender: Merlene Sadler [facility] Medical 12/18/2019 12:00:00 AM EST HILDA ([facility]) Merlene Sadler, [employer]PER[employer]: [address], [place] [address], Ph. Attender: Merlene Sadler [facility] Medical 12/18/2019 12:00:00 AM EST HILDA ([facility]) Merlene Sadler, [employer]PER[employer]: [address], [place] [address], Ph. Attender: Merlene Sadler [facility] Medical 12/18/2019 12:00:00 AM EST HILDA ([facility]) Merlene Sadler, [employer]PER[employer]: [address], [place] [address], Ph. Attender: Merlene Sadler [facility] Medical 12/18/2019 12:00:00 AM EST HILDA ([facility]) Merlene Sadler, [employer]PER[employer]: [address], [place] [address], Ph. Attender: Merlene Sadler [facility] Medical 12/18/2019 12:00:00 AM EST HILDA ([facility]) Merlene Sadler, [employer]PER[employer]: [address], [place] [address], Ph. Attender: Merlene Sadler [facility] Medical 12/18/2019 12:00:00 AM EST HILDA ([facility]) Merlene Sadler [employer]: [address], [place] [address], Ph. Attender: Merlene Sadler [facility] Medical 12/18/2019 12:00:00 AM EST HILDA ([facility]) Merlene Sadler [employer]PER[employer]: [address], [place] [address], Ph. Attender: Merlene Sadler [facility] Medical 12/18/2019 12:00:00 AM EST HILDA ([facility]) Merlene Sadler [employer]PER[employer]: [address], [place] [address], Ph. Attender: Merlene Sadler [facility] Medical 12/18/2019 12:00:00 AM EST HILDA ([facility]) Merlene Sadler, [employer]PER[employer]: [address], [place] [address], Ph. Attender: Merlene Sadler [facility] Medical 12/18/2019 12:00:00 AM EST HILDA ([facility]) Merlene Sadler [employer]PER[employer]: [address], [place] [address], Ph. Attender: Merlene Sadler [facility] Medical 12/18/2019 12:00:00 AM EST HILDA ([facility]) Merlene Sadler [employer]PER[employer]: [address], [place] [address], Ph. Attender: Merlene Sadler [facility] Medical 12/18/2019 12:00:00 AM EST HILDA ([facility]) Merlene Sadler, [employer]: [address], [place] [address], Ph. Attender: Merlene Sadler [facility] Medical 12/18/2019 12:00:00 AM EST HILDA ([facility]) Merlene Sadler, [employer]: [address], [place] [address], Ph. Attender: Merlene Sadler [facility] Medical 12/18/2019 12:00:00 AM EST HILDA ([facility]) Merlene Sadler, [facility]: [address], [place] [address], Ph. Attender: Merlene Sadler [facility] Medical 12/18/2019 12:00:00 AM EST HILDA ([facility]) Merlene Sadler, [facility]: [address], [place] [address], Ph. Attender: Merlene Sadler [facility] Medical 12/18/2019 12:00:00 AM EST HILDA ([facility]) Merlene Sadler, [facility]: [address], [place] [address], Ph. Attender: Merlene Sadler [facility] Medical 12/18/2019 12:00:00 AM EST HILDA ([facility]) Merlene Sadler, [facility]: [address], [place] [address], Ph. Attender: Merlene Sadler [facility] Medical 12/18/2019 12:00:00 AM EST HILDA ([facility]) Merlene Sadler, [employer]: [address], [place] [address], Ph. Attender: Merlene Sadler [facility] Medical 12/18/2019 12:00:00 AM EST HILDA ([facility]) Merlene Sadler, [employer]: [address], [place] [address], Ph. Attender: Merlene Sadler [facility] Medical 12/18/2019 12:00:00 AM EST HILDA ([facility]) Merlene Sadler, [employer]: [address], [place] [address], Ph. Attender: Merlene Sadler [facility] Medical 12/18/2019 12:00:00 AM EST HILDA ([facility]) Merlene Sadler, [employer]: [address], [place] [address], Ph. Attender: Merlene Sadler [facility] Medical 12/18/2019 12:00:00 AM EST HILDA ([facility]) Merlene Sadler, [employer]: [address], [place] [address], Ph. Attender: Merlene Sadler [facility] Medical 12/18/2019 12:00:00 AM EST HILDA ([facility]) Merlene Sadler, [employer]: [address], [place] [address], Ph. Attender: Merlene Sadler [facility] Medical 12/18/2019 12:00:00 AM EST HILDA ([facility]) Merlene Sadler, [employer]: [address], [place] [address], Ph. Attender: Merlene Sadler [facility] Medical 12/12/2019 12:00:00 AM EST HILDA ([facility]) Merlene Sadler, [employer]: [address], [place] [address], Ph. Attender: Merlene Sadler [facility] Medical 12/12/2019 12:00:00 AM EST HILDA ([facility]) Merlene Sadler, [employer]: [address], [place] [address], Ph. Attender: Merlene Sadler [facility] Medical 12/12/2019 12:00:00 AM EST HILDA ([facility]) Merlene Sadler, [facility]: [address], [place] [address], Ph. Attender: Merlene Sadler [facility] Medical 12/12/2019 12:00:00 AM EST HILDA ([facility]) Merlene Sadler, [facility]: [address], [place] [address], Ph. Attender: Merlene Sadler [facility] Medical 12/12/2019 12:00:00 AM EST HILDA ([facility]) Merlene Sadler, [employer]: [address], [place] [address], Ph. Attender: Merlene Sadler [facility] Medical 12/12/2019 12:00:00 AM EST HILDA ([facility]) Merlene Sadler, [employer]: [address], [place] [address], Ph. Attender: Merlene Sadler [facility] Medical 12/12/2019 12:00:00 AM EST HILDA ([facility]) Merlene Sadler [facility]: [address], [place] [address], Ph. Attender: Merlene Sadler [facility] Medical 12/12/2019 12:00:00 AM EST HILDA ([facility]) Merlene Sadler, [employer]: [address], [place] [address], Ph. Attender: Merlene Sadler [facility] Medical 12/12/2019 12:00:00 AM EST HILDA ([facility]) Merlene Sadler [facility]: [address], [place] [address], Ph. Attender: Merlene Sadler [facility] Medical 12/12/2019 12:00:00 AM EST HILDA ([facility]) Merlene Sadler [facility]: [address], [place] [address], Ph. Attender: Merlene Sadler [facility] Medical 12/12/2019 12:00:00 AM EST HILDA ([facility]) Merlene Sadler [facility]: [address], [place] [address], Ph. Attender: Merlene Sadler [facility] [facility] Medical 12/12/2019 12:00:00 AM EST [place] ([facility]) Merlene Sadler, [employer]: [address], [place] [address], Ph. Attender: Merlene Sadler [facility] Medical 12/12/2019 12:00:00 AM EST [place] ([facility]) Merlene Sadler, [facility]: [address], [place] [address], Ph. Attender: Merlene Sadler [facility] Medical 12/12/2019 12:00:00 AM EST [place] ([facility]) Merlene Sadler [employer]: [address], [place] [address], Ph. Attender: Merlene Sadler [facility] Medical 12/12/2019 12:00:00 AM EST [place] ([facility]) Merlene Sadler, [employer]: [address], [place] [address], Ph. Attender: Merlene Sadler [facility] [place] Medical 12/12/2019 12:00:00 AM EST [place] ([facility]) Merlene Sadler, [facility]: [address], [place] [address], Ph. Attender: Merlene Sadler [facility] Medical 12/12/2019 12:00:00 AM EST [place] ([facility]) Merlene Sadler [facility]: [address], [place] [address], Ph. Attender: Merlene Sadler [facility] Medical 12/12/2019 12:00:00 AM EST [place] ([facility]) Merlene Sadler, [facility]: [address], [place] [address], Ph. Attender: Merlene Sadler [facility] Medical 12/12/2019 12:00:00 AM EST [place] ([facility]) Merlene Sadler, [facility]: [address], [place] [address], Ph. Attender: Merlene Sadler [facility] Medical 12/12/2019 12:00:00 AM EST [place] ([facility]) Merlene Sadler, [employer]: [address], [place] [address], Ph. Attender: Merlene Sadler [facility] Medical 12/12/2019 12:00:00 AM EST [place] ([facility]) Merlene Sadler, [employer]: [address], [place] [address], Ph. Attender: Merlene Sadler [facility] Medical 12/12/2019 12:00:00 AM EST [place] ([facility]) Merlene Sadler, [employer]: [address], [place] [address], Ph. Attender: Merlene Sadler [facility] Medical 12/12/2019 12:00:00 AM EST [place] ([facility]) Merlene Sadler, [employer]: [address], [place] [address], Ph. Attender: Merlene Sadler [facility] Medical 12/12/2019 12:00:00 AM EST [place] ([facility]) Merlene Sadler, [employer]: [address], [place] [address], Ph. Attender: Merlene Sadler [facility] Medical 12/12/2019 12:00:00 AM EST [place] ([facility]) Merlene Sadler, [employer]: [address], [place] [address], Ph. Attender: Merlene Sadler [facility] Medical 12/12/2019 12:00:00 AM EST [place] ([facility]) Merlene Sadler, [employer]: [address], [place] [address], Ph. Attender: Merlene Sadler [facility] Medical 12/12/2019 12:00:00 AM EST [place] ([facility]) Merlene Sadler, [employer]: [address], [place] [address], Ph. Attender: Merlene Sadler [facility] Medical 12/12/2019 12:00:00 AM EST [place] ([facility]) Merlene Sadler, [employer]: [address], [place] [address], Ph. Attender: Merlene Sadler [facility] Medical 12/12/2019 12:00:00 AM EST [place] ([facility]) Merlene Sadler, [employer]: [address], [place] [address], Ph. Attender: Merlene Sadler [facility] Medical 12/12/2019 12:00:00 AM EST [place] ([facility]) Merlene Sadler, [employer]: [address], [place] [address], Ph. Attender: Merlene Sadler [facility] Medical 12/12/2019 12:00:00 AM EST [place] ([facility]) Merlene Sadler, [employer]: [address], [place] [address], Ph. Attender: Merlene Sadler [facility] Medical 12/12/2019 12:00:00 AM EST [place] ([facility]) Merlene Sadler, [employer]: [address], [place] [address], Ph. Attender: Merlene Sadler [facility] Medical 12/12/2019 12:00:00 AM EST [place] ([facility]) Merlene Sadler, [employer]: [address], [place] [address], Ph. Attender: Merlene Sadler [facility] Medical 12/12/2019 12:00:00 AM EST [place] ([facility]) Merlene Sadler [employer]: [address], [place] [address], Ph. Attender: Merlene Sadler [facility] Medical 12/12/2019 12:00:00 AM EST [place] ([facility]) Merlene Sadler, [employer]: [address], [place] [address], Ph. Attender: Merlene Sadler [facility] Medical 12/12/2019 12:00:00 AM EST [place] ([facility]) Merlene Sadler [employer]PER[employer]: [address], [place] [address], Ph. Attender: Merlene Sadler [facility] Medical 12/12/2019 12:00:00 AM EST [place] ([facility]) Merlene Sadler, [employer]: [address], [place] [address], Ph. Attender: Merlene Sadler [facility] Medical 12/12/2019 12:00:00 AM EST [place] ([facility]) Terry Quiroga RPA-C: [address], [place] [address], Ph. Attender: TERRY QUIROGA RPA-C [facility] Medical 12/11/2019 12:00:00 AM EST [place] ([facility]) Terry Quiroga RPA-C: [address], [place] [address], Ph. Attender: TERRY QUIROGA RPA-C [facility] Medical 12/11/2019 12:00:00 AM EST [place] ([facility]) Terry Quiroga RPA-C: [address], [place] [address], Ph. Attender: TERRY QUIROGA RPA-C [facility] Medical 12/11/2019 12:00:00 AM EST [place] ([facility]) Terry Quiroga RPA-C: [address], [place] [address], Ph. Attender: TERRY QUIROGA RPA-C [facility] Medical 12/11/2019 12:00:00 AM EST [place] ([facility]) Terry Quiroga, RPA-C: [address], [place] [address], Ph. Attender: TERRY QUIROGA RPA-C [facility] Medical 12/11/2019 12:00:00 AM EST [place] ([facility]) Terry Quiroga RPA-C: [address], [place] [address], Ph. Attender: TERRY QUIROGA RPA-C [facility] Medical 12/11/2019 12:00:00 AM EST [place] ([facility]) Terry Quiroga RPA-C: [address], [place] [address], Ph. Attender: TERRY QUIROGA RPA-C [facility] Medical 12/11/2019 12:00:00 AM EST [place] ([facility]) Terry Quiroga RPA-C: [address], [place] [address], Ph. Attender: TERRY QUIROGA RPA-C [facility] Medical 12/11/2019 12:00:00 AM EST [place] ([facility]) Terry Quiroga RPA-C: [address], [place] [address], Ph. Attender: TERRY QUIROGA RPA-C [facility] Medical 12/11/2019 12:00:00 AM EST [place] ([facility]) Terry Quiroga RPA-C: [address], [place] [address], Ph. Attender: TERRY QUIROGA RPA-C [facility] Medical 12/11/2019 12:00:00 AM EST [place] ([facility]) Terry Quiroga RPA-C: [address], [place] [address], Ph. Attender: TERRY QUIROGA RPA-C [facility] Medical 12/11/2019 12:00:00 AM EST [place] ([facility]) Terry Quiroga RPA-C: [address], [place] [address], Ph. Attender: TERRY QUIROGA RPA-C [facility] Medical 12/11/2019 12:00:00 AM EST [place] ([facility]) Terry Quiroga RPA-C: [address], [place] [address], Ph. Attender: TERRY QUIROGA RPA-C [facility] Medical 12/11/2019 12:00:00 AM EST [place] ([facility]) Terry Quiroga, RPA-C: [address], [place] [address], Ph. Attender: TERRY QUIROGA RPA-C [facility] Medical 12/11/2019 12:00:00 AM EST [place] ([facility]) Terry Quiroga, RPA-C: [address], [place] [address], Ph. Attender: TERRY QUIROGA RPA-C [facility] Medical 12/11/2019 12:00:00 AM EST [place] ([facility]) Terry Quiroga RPA-C: [address], [place] [address], Ph. Attender: TERRY QUIROGA RPA-C [facility] Medical 12/11/2019 12:00:00 AM EST [place] ([facility]) Terry Quiroga, RPA-C: [address], [place] [address], Ph. Attender: TERRY QUIROGA RPA-C [facility] Medical 12/11/2019 12:00:00 AM EST [place] ([facility]) Terry Quiroga RPA-C: [address], [place] [address], Ph. Attender: TERRY QUIROGA RPA-C [facility] Medical 12/11/2019 12:00:00 AM EST [place] ([facility]) Terry Quiroga RPA-C: [address], [place] [address], Ph. Attender: TERRY QUIROGA RPA-C [facility] Medical 12/11/2019 12:00:00 AM EST [place] ([facility]) Trery Quiroga RPA-C: [address], [place] [address], Ph. Attender: TERRY QUIROGA RPA-C [facility] Medical 12/11/2019 12:00:00 AM EST [place] ([facility]) Terry Quiroga RPA-C: [address], [place] [address], Ph. Attender: TERRY QUIROGA RPA-C [facility] Medical 12/11/2019 12:00:00 AM EST [place] ([facility]) Terry Quiroga, RPA-C: [address], [place] [address], Ph. Attender: TERRY QUIROGA RPA-C [facility] Medical 12/11/2019 12:00:00 AM EST [place] ([facility]) Terry Quiroga, RPA-C: [address], [place] [address], Ph. Attender: TERRY QUIROGA RPA-C [facility] Medical 12/11/2019 12:00:00 AM EST [place] ([facility]) Terry Quiroga RPA-C: [address], [place] [address], Ph. Attender: TERRY QUIROGA RPA-C [facility] Medical 12/11/2019 12:00:00 AM EST [place] ([facility]) Terry Quiroga RPA-C: [address], [place] [address], Ph. Attender: TERRY QUIROGA RPA-C [facility] Medical 12/11/2019 12:00:00 AM EST [place] ([facility]) Terry Quiroga RPA-C: [address], [place] [address], Ph. Attender: TERRY QUIROGA RPA-C [facility] Medical 12/11/2019 12:00:00 AM EST [place] ([facility]) Terry Quiroga RPA-C: [address], [place] [address], Ph. Attender: TERRY QUIROGA RPA-C [facility] Medical 12/11/2019 12:00:00 AM EST [place] ([facility]) Terry Quiroga, RPA-C: [address], [place] [address], Ph. Attender: TERRY QUIROGA RPA-C [facility] Medical 12/11/2019 12:00:00 AM EST [place] ([facility]) Terry Quiroga RPA-C: [address], [place] [address], Ph. Attender: TERRY QUIROGA RPA-C [facility] Medical 12/11/2019 12:00:00 AM EST [place] ([facility]) Terry Quiroga RPA-C: [address], [place] [address], Ph. Attender: TERRY QUIROGA RPA-C [facility] Medical 12/11/2019 12:00:00 AM EST [place] ([facility]) Terry Quiroga RPA-C: [address], [place] [address], Ph. Attender: TERRY QUIROGA RPA-C [facility] Medical 12/11/2019 12:00:00 AM EST [place] ([facility]) Terry Quiroga RPA-C: [address], [place] [address], Ph. Attender: TERRY QUIROGA RPA-C [facility] Medical 12/11/2019 12:00:00 AM EST [place] ([facility]) Terry Quiroga RPA-C: [address], [place] [address], Ph. Attender: TERRY QUIROGA RPA-C [facility] Medical 12/11/2019 12:00:00 AM EST [place] ([facility]) Terry Quiroga RPA-C: [address], [place] [address], Ph. Attender: TERRY QUIROGA RPA-C [facility] Medical 12/11/2019 12:00:00 AM EST [place] ([facility]) Terry Quiroga RPA-C: [address], [place] [address], Ph. Attender: TERRY QUIROGA RPA-C [facility] Medical 12/11/2019 12:00:00 AM EST [place] ([facility]) Terry Quiroga RPA-C: [address], [place] [address], Ph. Attender: TERRY QUIROGA RPA-C [facility] Medical 12/11/2019 12:00:00 AM EST [place] ([facility]) Terry Quiroga RPA-C: [address], [place] [address], Ph. Attender: TERRY QUIROGA RPA-C [facility] Medical 12/11/2019 12:00:00 AM EST [place] ([facility]) Terry Quiroga RPA-C: [address], [place] [address], Ph. Attender: TERRY QUIROGA RPA-C [facility] Medical 12/11/2019 12:00:00 AM EST [place] ([facility]) Merlene Sadler [facility]: [address], [place] [address], Ph. Attender: Merleen Sadler [facility] Medical 12/03/2019 12:00:00 AM EDT [place] ([facility]) Merlene Sadler, [facility]: [address], [place] [address], Ph. Attender: Merlene Sadler [facility] Medical 12/03/2019 12:00:00 AM EDT [place] ([facility]) Merlene Sadler, [facility]: [address], [place] [address], Ph. Attender: Merlene aSdler [facility] Medical 12/03/2019 12:00:00 AM EDT [place] ([facility]) Merlene Sadler, [employer]: [address], [place] [address], Ph. Attender: Merlene Sadler [facility] Medical 12/03/2019 12:00:00 AM EDT [place] ([facility]) Merlene Sadler, [employer]: [address], [place] [address], Ph. Attender: Merlene Sadler [facility] Medical 12/03/2019 12:00:00 AM EDT [place] ([facility]) Merlene Sadler, [facility]: [address], [place] [address], Ph. Attender: Merlene Sadler [facility] Medical 12/03/2019 12:00:00 AM EDT [place] ([facility]) Merlene Sadler [facility]: [address], [place] [address], Ph. Attender: Merlene Sadler [facility] Medical 12/03/2019 12:00:00 AM EDT [place] ([facility]) Merlene Sadler, [facility]: [address], [place] [address], Ph. Attender: Merlene Sadler [facility] Medical 12/03/2019 12:00:00 AM EDT [place] ([facility]) Merlene Sadler, [facility]: [address], [place] [address], Ph. Attender: Merlene Sadler [facility] [place] [facility] Medical 12/03/2019 12:00:00 AM EDT [place] ([facility]) Merlene Sadler, [facility]: [address], [place] [address], Ph. Attender: Merlene Sadler [facility] Medical 12/03/2019 12:00:00 AM EDT [place] ([facility]) Merlene Sadler, [facility]: [address], [place] [address], Ph. Attender: Merlene Sadler [facility] Medical 12/03/2019 12:00:00 AM EDT [place] ([facility]) Merlene Sadler, [facility]: [address], [place] [address], Ph. Attender: Merlene Sadler [facility] Medical 12/03/2019 12:00:00 AM EDT [place] ([facility]) Merlene Sadler [facility]: [address], [place] [address], Ph. Attender: Merlene Sadler [facility] Medical 12/03/2019 12:00:00 AM EDT [place] ([facility]) Merlene Sadler, [facility]: [address], [place] [address], Ph. Attender: Merlene Sadler [facility] Medical 12/03/2019 12:00:00 AM EDT [place] ([facility]) Merlene Sadler, [facility]: [address], [place] [address], Ph. Attender: Merlene Sadler [facility] Medical 12/03/2019 12:00:00 AM EDT [place] ([facility]) Merlene Sadler, [employer]: [address], [place] [address], Ph. Attender: Merlene Sadler [facility] Medical 12/03/2019 12:00:00 AM EDT [place] ([facility]) Merlene Sadler, [facility]: [address], [place] [address], Ph. Attender: Merlene Sadler [facility] Medical 12/03/2019 12:00:00 AM EDT [place] ([facility]) Merlene Sadler, [facility]: [address], [place] [address], Ph. Attender: Merlene Sadler [facility] Medical 12/03/2019 12:00:00 AM EDT [place] ([facility]) Merlene Sadler [facility]: [address], [place] [address], Ph. Attender: Merlene Sadler [facility] Medical 12/03/2019 12:00:00 AM EDT [place] ([facility]) Merlene Sadler, [facility]: [address], [place] [address], Ph. Attender: Merlene Sadler [facility] Medical 12/03/2019 12:00:00 AM EDT [place] ([facility]) Merlene Sadler, [employer]: [address], [place] [address], Ph. Attender: Merlene Sadler [facility] Medical 12/03/2019 12:00:00 AM EDT [place] ([facility]) Merlene Sadler, [employer]: [address], [place] [address], Ph. Attender: Merlene Sadler [facility] Medical 12/03/2019 12:00:00 AM EDT [place] ([facility]) Merlene Sadler, [facility]: [address], [place] [address], Ph. Attender: Merlene Sadler [facility] Medical 12/03/2019 12:00:00 AM EDT [place] ([facility]) Merlene Sadler, [employer]: [address], [place] [address], Ph. Attender: Merlene Sadler [facility] Medical 12/03/2019 12:00:00 AM EDT HILDA ([facility]) Merlene Sadler, [employer]: [address], [place] [address], Ph. Attender: Merlene Sadler [facility] Medical 12/03/2019 12:00:00 AM EDT HILDA ([facility]) Merlene Sadler, [facility]: [address], [place] [address], Ph. Attender: Merlene Sadler [facility] Medical 12/03/2019 12:00:00 AM EDT HILDA ([facility]) Merlene Sadler, [employer]: [address], [place] [address], Ph. Attender: Merlene Sadler [facility] Medical 12/03/2019 12:00:00 AM EDT HILDA ([facility]) Merlene Sadler, [employer]: [address], [place] [address], Ph. Attender: Merlene Sadler [facility] Medical 12/03/2019 12:00:00 AM EDT HILDA ([facility]) Merlene Sadler, [employer]: [address], [place] [address], Ph. Attender: Merlene Sadler [facility] Medical 12/03/2019 12:00:00 AM EDT HILDA ([facility]) Merlene Sadler, [employer]: [address], [place] [address], Ph. Attender: Merlene Sadler [facility] Medical 12/03/2019 12:00:00 AM EDT HILDA ([facility]) Merlene Sadler, [employer]: [address], [place] [address], Ph. Attender: Merlene Sadler [facility] Medical 12/03/2019 12:00:00 AM EDT HILDA ([facility]) Merlene Sadler, [employer]: [address], [place] [address], Ph. Attender: Merlene Sadler [facility] Medical 12/03/2019 12:00:00 AM EDT HILDA ([facility] [facility]) Merlene Sadler, [employer] SUPERVISOR: [address], [place] [address], Ph. Attender: Merlene Sadler [facility] Medical 12/03/2019 12:00:00 AM EDT [place] ([facility]) Merlene Sadler, [employer] SUPERVISOR: [address], [place] [address], Ph. Attender: Merlene Sadler [facility] Medical 12/03/2019 12:00:00 AM EDT [place] ([facility]) Merlene Sadler, [employer] SUPERVISOR: [address], [place] [address], Ph. Attender: Merlene Sadler [facility] Medical 12/03/2019 12:00:00 AM EDT [place] ([facility]) Merlene Sadler [employer] SUPERVISOR: [address], [place] [address], Ph. Attender: Merlene Sadler [facility] Medical 12/03/2019 12:00:00 AM EDT [place] ([facility]) Merlene Sadler, [employer] SUPERVISOR: [address], [place] [address], Ph. Attender: Merlene Sadler [facility] Medical 12/03/2019 12:00:00 AM EDT [place] ([facility]) Merlene Sadler [employer] SUPERVISOR: [address], [place] [address], Ph. Attender: Merlene Sadler [facility] Medical 12/03/2019 12:00:00 AM EDT [place] ([facility]) Merlene Sadler, [employer] SUPERVISOR: [address], [place] [address], Ph. Attender: Merlene Sadler [facility] Medical 12/03/2019 12:00:00 AM EDT [place] ([facility]) Merlene Sadler, [employer] SUPERVISOR: [address], [place] [address], Ph. Attender: Merlene Sadler [facility] Medical 11/26/2019 12:00:00 AM EDT [place] ([facility]) Merlene Sadler, [employer] SUPERVISOR: [address], [place] [address], Ph. Attender: Merlene Sadler [facility] Medical 11/26/2019 12:00:00 AM EDT [place] ([facility]) Merlene Sadler, [employer] SUPERVISOR: [address], [place] [address], Ph. Attender: Merlene Sadler [facility] Medical 11/26/2019 12:00:00 AM EDT [place] ([facility]) Merlene Sadler, [employer] SUPERVISOR: [address], [place] [address], Ph. Attender: Merlene Sadler [facility] Medical 11/26/2019 12:00:00 AM EDT [place] ([facility]) Merlene Sadler, [employer] SUPERVISOR: [address], [place] [address], Ph. Attender: Merlene Sadler [facility] Medical 11/26/2019 12:00:00 AM EDT [place] ([facility]) Merlene Sadler, [employer] SUPERVISOR: [address], [place] [address], Ph. Attender: Merlene Sadler [facility] Medical 11/26/2019 12:00:00 AM EDT [place] ([facility]) Merlene Sadler, [facility]: [address], [place] [address], Ph. Attender: Merlene Sadler [facility] Medical 11/26/2019 12:00:00 AM EDT [place] ([facility]) Merlene Sadler, [employer] SUPERVISOR: [address], [place] [address], Ph. Attender: Merlene Sadler [facility] Medical 11/26/2019 12:00:00 AM EDT [place] ([facility]) Merlene Sadler, [facility]: [address], [place] [address], Ph. Attender: Merlene Sadlre [facility] Medical 11/26/2019 12:00:00 AM EDT [place] ([facility]) Merlene Sadler, [facility]: [address], [place] [address], Ph. Attender: Merlene Sadler [facility] Medical 11/26/2019 12:00:00 AM EDT [place] ([facility]) Merlene Sadler, [facility]: [address], [place] [address], Ph. Attender: Merlene Sadler [facility] Medical 11/26/2019 12:00:00 AM EDT [place] ([facility]) Merlene Sadler, [facility]: [address], [place] [address], Ph. Attender: Merlene Sadler [facility] Medical 11/26/2019 12:00:00 AM EDT [place] ([facility]) Merlene Sadler REFU[employer] SUPERVISOR: [address], [place] [address], Ph. Attender: Merlene Sadler [facility] Medical 11/26/2019 12:00:00 AM EDT [place] ([facility]) Merlene Sadler, [employer] SUPERVISOR: [address], [place] [address], Ph. Attender: Merlene Sadler [facility] Medical 11/26/2019 12:00:00 AM EDT [place] ([facility]) Merlene Sadler, [employer] SUPERVISOR: [address], [place] [address], Ph. Attender: Merlene Sadler [facility] Medical 11/26/2019 12:00:00 AM EDT [place] ([facility]) Merlene Sadler, [employer]FU[employer] SUPERVISOR: [address], [place] [address], Ph. Attender: Merlene Sadler [facility] Medical 11/26/2019 12:00:00 AM EDT [place] ([facility]) Merlene Sadler, [employer]FU[employer] SUPERVISOR: [address], [place] [address], Ph. Attender: Merlene Sadler [facility] Medical 11/26/2019 12:00:00 AM EDT [place] ([facility]) Merlene Sadler, [employer]FU[employer] SUPERVISOR: [address], [place] [address], Ph. Attender: Merlene Sadler [facility] Medical 11/26/2019 12:00:00 AM EDT [place] ([facility]) Merlene Sadler, [employer]FU[employer] SUPERVISOR: [address], [place] [address], Ph. Attender: Merlene Sadler [facility] Medical 11/26/2019 12:00:00 AM EDT [place] ([facility]) Merlene Sadler, [employer]FU[employer] SUPERVISOR: [address], [place] [address], Ph. Attender: Merlene Sadler [facility] Medical 11/26/2019 12:00:00 AM EDT [place] ([facility]) Merlene Sadler, [employer]FU[employer] SUPERVISOR: [address], [place] [address], Ph. Attender: Merlene Sadler [facility] Medical 11/26/2019 12:00:00 AM EDT [place] ([facility]) Merlene Sadler, REFUELING [employer] SUPERVISOR: [address], [place] [address], Ph. Attender: Merlene Sadler [facility] Medical 11/26/2019 12:00:00 AM EDT [place] ([facility]) Merlene Sadler, [employer]FU[employer] SUPERVISOR: [address], [place] [address], Ph. Attender: Merlene Sadler [facility] Medical 11/26/2019 12:00:00 AM EDT [place] ([facility]) Merlene Sadler, [employer]FU[employer] SUPERVISOR: [address], [place] [address], Ph. Attender: Merlene Sadler [facility] Medical 11/26/2019 12:00:00 AM EDT [place] ([facility]) Merlene Sadler, [facility]: [address], [place] [address], Ph. Attender: Merlene Sadler [facility] Medical 11/26/2019 12:00:00 AM EDT [place] ([facility]) Merlene Sadler REFUEL[employer] SUPERVISOR: [address], [place] [address], Ph. Attender: Merlene Sadler [facility] Medical 11/26/2019 12:00:00 AM EDT [place] ([facility]) Merlene Salder, [facility]: [address], [place] [address], Ph. Attender: Merlene Sadler [facility] Medical 11/26/2019 12:00:00 AM EDT [place] ([facility]) Merlene Sadler, [facility]: [address], [place] [address], Ph. Attender: Merlene Sadler [facility] Medical 11/26/2019 12:00:00 AM EDT [place] ([facility]) Merlene Sadler [facility]: [address], [place] [address], Ph. Attender: Merlene Sadler [facility] Medical 11/26/2019 12:00:00 AM EDT [place] ([facility]) Merlene Sadler, [facility]: [address], [place] [address], Ph. Attender: Merlene Sadler [facility] Medical 11/26/2019 12:00:00 AM EDT [place] ([facility]) Merlene Sadler, [employer]FU[employer] SUPERVISOR: [address], [place] [address], Ph. Attender: Merlene Sadler [facility] Medical 11/26/2019 12:00:00 AM EDT [place] ([facility]) Merlene Sadler, [employer]FUEL[employer] SUPERVISOR: [address], [place] [address], Ph. Attender: Merlene Sadler [facility] Medical 11/26/2019 12:00:00 AM EDT [place] ([facility]) Merlene Sadler, REFUELING [employer] SUPERVISOR: [address], [place] [address], Ph. Attender: Merlene Sadler [facility] Medical 11/26/2019 12:00:00 AM EDT [place] ([facility]) Merlene Sadler, [employer]FU[employer] SUPERVISOR: [address], [place] [address], Ph. Attender: Merlene Sadler [facility] Medical 11/26/2019 12:00:00 AM EDT [place] ([facility]) Merlene Sadler, [facility]: [address], [place] [address], Ph. 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 Attender: Merlene Sadler [facility] Medical 11/26/2019 12:00:00 AM EDT [place] ([facility]) Merlene Sadler [facility]: [address], [place] [address], Ph. Attender: Merlene Sadler [facility] Medical 11/26/2019 12:00:00 AM EDT [place] ([facility]) Merlene Sadler, [facility]: [address], [place] [address], Ph. Attender: Merlene Sadler [facility] Medical 11/26/2019 12:00:00 AM EDT [place] ([facility]) Merlene Sadler, [facility]: [address], [place] [address], Ph. Attender: Merlene Sadler [facility] Medical 11/26/2019 12:00:00 AM EDT [place] ([facility]) Merlene Sadler, [facility]: [address], [place] [address], Ph. Attender: Merlene Sadler [facility] Medical 11/26/2019 12:00:00 AM EDT [place] ([facility]) Outpatient Attender: TERRY QUIROGA RPA-C [facility] 11/13/2019 08:31:03 AM EDT [facility] Outpatient Attender: TERRY QUIROGA RPA-C [facility] 10/28/2019 04:06:01 PM EDT [facility] Outpatient Attender: TERRY QUIROGA RPA-C [facility] 10/28/2019 08:58:02 AM EDT [facility] Outpatient Attender: TERRY QUIROGA RPA-C [facility] 10/28/2019 08:58:02 AM EDT [facility] Outpatient Attender: TERRY QUIROGA RPA-C [facility] 2019 08:16:01 AM EDT [facility] Outpatient Attender: TERRY QUIROGA RPA-C [facility] 10/14/2019 04:14:00 PM EDT [facility] Outpatient Attender: TERRY QUIROGA RPA-C [facility] 10/14/2019 09:02:02 AM EDT [facility] Outpatient Attender: TERRY QUIROGA RPA-C [facility] 10/10/2019 02:32:00 PM EDT [facility] Outpatient Attender: TERRY QUIROGA RPA-C [facility] 10/10/2019 02:32:00 PM EDT [facility] Outpatient Attender: TERRY QUIROGA RPA-C [facility] 10/06/2019 03:39:01 PM EDT [facility] Outpatient Attender: TERRY QUIROGA RPA-C [facility] 10/06/2019 08:14:02 AM EDT [facility] Outpatient Attender: TERRY QUIROGA RPA-C [facility] 09/30/2019 10:06:04 AM EDT [facility] Immunizations Vaccine Date Status Description Data Source(s) COVID-19, mRNA, LNP-S, PF, 30 mcg/0.3 mL dose 08/12/2020 11: 30:57 AM EDT completed .3 mL [facility]) COVID-19, mRNA, LNP-S, PF, 30 mcg/0.3 mL dose 08/12/2020 11: 30:57 AM EDT completed .3 mL [facility]) COVID-19, mRNA, LNP-S, PF, 30 mcg/0.3 mL dose 08/12/2020 11: 30:57 AM EDT completed .3 mL [facility]) COVID-19, mRNA, LNP-S, PF, 30 mcg/0.3 mL dose 08/12/2020 11: 30:57 AM EDT completed .3 mL [facility]) COVID-19, mRNA, LNP-S, PF, 30 mcg/0.3 mL dose 08/12/2020 11: 30:57 AM EDT completed .3 mL [facility]) COVID-19, mRNA, LNP-S, PF, 30 mcg/0.3 mL dose 08/12/2020 11: 30:57 AM EDT completed .3 mL [place] ([facility]) COVID-19, mRNA, LNP-S, PF, 30 mcg/0.3 mL dose 08/12/2020 11: 30:57 AM EDT completed .3 mL [place] ([facility]) COVID-19, mRNA, LNP-S, PF, 30 mcg/0.3 mL dose 08/12/2020 11: 30:57 AM EDT completed .3 mL [place] ([facility]) COVID-19, mRNA, LNP-S, PF, 30 mcg/0.3 mL dose 08/12/2020 11: 30:57 AM EDT completed .3 mL [place] ([facility]) COVID-19, mRNA, LNP-S, PF, 30 mcg/0.3 mL dose 08/12/2020 11: 30:57 AM EDT completed .3 mL [place] ([facility]) COVID-19, mRNA, LNP-S, PF, 30 mcg/0.3 mL dose 08/12/2020 11: 30:57 AM EDT completed .3 mL [place] ([facility]) COVID-19 VACCINE Pfizer 08/12/2020 12:00:00 AM EDT completed [facility] Vaccine Series Complete: YESThis Data wa s Submitted to [facility] [employer]. COVID-19, mRNA, LNP-S, PF, 30 mcg/0.3 mL dose 07/22/2020 06: 41:28 PM EDT completed .3 mL [place] ([facility]) COVID-19, mRNA, LNP-S, PF, 30 mcg/0.3 mL dose 07/22/2020 06: 41:28 PM EDT completed .3 mL [place] ([facility]) COVID-19, mRNA, LNP-S, PF, 30 mcg/0.3 mL dose 07/22/2020 06: 41:28 PM EDT completed .3 mL [place] ([facility]) COVID-19, mRNA, LNP-S, PF, 30 mcg/0.3 mL dose 07/22/2020 06: 41:28 PM EDT completed .3 mL [place] ([facility]) COVID-19, mRNA, LNP-S, PF, 30 mcg/0.3 mL dose 07/22/2020 06: 41:28 PM EDT completed .3 mL [place] ([facility]) COVID-19, mRNA, LNP-S, PF, 30 mcg/0.3 mL dose 07/22/2020 06: 41:28 PM EDT completed .3 mL [place] ([facility]) COVID-19, mRNA, LNP-S, PF, 30 mcg/0.3 mL dose 07/22/2020 06: 41:28 PM EDT completed .3 mL [place] ([facility]) COVID-19, mRNA, LNP-S, PF, 30 mcg/0.3 mL dose 07/22/2020 06: 41:28 PM EDT completed .3 mL [place] ([facility]) COVID-19, mRNA, LNP-S, PF, 30 mcg/0.3 mL dose 07/22/2020 06: 41:28 PM EDT completed .3 mL [place] ([facility]) COVID-19, mRNA, LNP-S, PF, 30 mcg/0.3 mL dose 07/22/2020 06: 41:28 PM EDT completed .3 mL [place] ([facility]) COVID-19, mRNA, LNP-S, PF, 30 mcg/0.3 mL dose 07/22/2020 06: 41:28 PM EDT completed .3 mL [place] ([facility]) COVID-19, mRNA, LNP-S, PF, 30 mcg/0.3 mL dose 07/22/2020 06: 41:28 PM EDT completed .3 mL [place] ([facility]) COVID-19, mRNA, LNP-S, PF, 30 mcg/0.3 mL dose 07/22/2020 06: 41:28 PM EDT completed .3 mL [place] ([facility]) COVID-19, mRNA, LNP-S, PF, 30 mcg/0.3 mL dose 07/22/2020 06: 41:28 PM EDT completed .3 mL [place] ([facility]) COVID-19 VACCINE Pfizer 07/22/2020 12:00:00 AM EDT completed [facility] Vaccine Series Complete: NOThis Data was Submitted to [facility] Via [employer]. Medications Medication Brand Name Start Date Product Form Dose Route Admi nistrative Instructions Pharmacy Instructions Status Indications Reaction Description Data Source(s) Naproxen 250 MG Oral Tablet Naproxen 05/20/2020 12:00:00 AM EDT ORAL active [facility] ([facility], ) Amoxicillin 875 MG / Clavulanate 125 MG Oral Tablet amoxicillin 875 mg-potassium clavulanate 125 mg tablet TAKE 1 TABLET BY MOUTH TWICE DAILY amoxicillin 875 mg- potassium clavulanate 125 mg tablet TAKE 1 TABLET BY MOUTH TWICE DAILY 04/02/2020 12:00:00 AM EST completed amoxicillin 875 MG / clavulanate 125 MG Oral Tablet [place] ([facility]) Amoxicillin 875 MG / Clavulanate 125 MG Oral Tablet amoxicillin 875 mg-potassium clavulanate 125 mg tablet TAKE 1 TABLET BY MOUTH TWICE DAILY amoxicillin 875 mg- potassium clavulanate 125 mg tablet TAKE 1 TABLET BY MOUTH TWICE DAILY 04/02/2020 12:00:00 AM EST completed amoxicillin 875 MG / clavulanate 125 MG Oral Tablet [place] ([facility]) Amoxicillin 875 MG / Clavulanate 125 MG Oral Tablet amoxicillin 875 mg-potassium clavulanate 125 mg tablet TAKE 1 TABLET BY MOUTH TWICE DAILY amoxicillin 875 mg- potassium clavulanate 125 mg tablet TAKE 1 TABLET BY MOUTH TWICE DAILY 04/02/2020 12:00:00 AM EST completed amoxicillin 875 MG / clavulanate 125 MG Oral Tablet [place] ([facility]) Amoxicillin 875 MG / Clavulanate 125 MG Oral Tablet amoxicillin 875 mg-potassium clavulanate 125 mg tablet TAKE 1 TABLET BY MOUTH TWICE DAILY amoxicillin 875 mg- potassium clavulanate 125 mg tablet TAKE 1 TABLET BY MOUTH TWICE DAILY 04/02/2020 12:00:00 AM EST completed amoxicillin 875 MG / clavulanate 125 MG Oral Tablet [place] ([facility]) Amoxicillin 875 MG / Clavulanate 125 MG Oral Tablet amoxicillin 875 mg-potassium clavulanate 125 mg tablet TAKE 1 TABLET BY MOUTH TWICE DAILY amoxicillin 875 mg- potassium clavulanate 125 mg tablet TAKE 1 TABLET BY MOUTH TWICE DAILY 04/02/2020 12:00:00 AM EST completed amoxicillin 875 MG / clavulanate 125 MG Oral Tablet [place] ([facility]) Amoxicillin 875 MG / Clavulanate 125 MG Oral Tablet amoxicillin 875 mg-potassium clavulanate 125 mg tablet TAKE 1 TABLET BY MOUTH TWICE DAILY amoxicillin 875 mg- potassium clavulanate 125 mg tablet TAKE 1 TABLET BY MOUTH TWICE DAILY 04/02/2020 12:00:00 AM EST completed amoxicillin 875 MG / clavulanate 125 MG Oral Tablet [place] ([facility]) Amoxicillin 875 MG / Clavulanate 125 MG Oral Tablet amoxicillin 875 mg-potassium clavulanate 125 mg tablet TAKE 1 TABLET BY MOUTH TWICE DAILY amoxicillin 875 mg- potassium clavulanate 125 mg tablet TAKE 1 TABLET BY MOUTH TWICE DAILY 04/02/2020 12:00:00 AM EST completed amoxicillin 875 MG / clavulanate 125 MG Oral Tablet [place] ([facility]) Amoxicillin 875 MG / Clavulanate 125 MG Oral Tablet amoxicillin 875 mg-potassium clavulanate 125 mg tablet TAKE 1 TABLET BY MOUTH TWICE DAILY amoxicillin 875 mg- potassium clavulanate 125 mg tablet TAKE 1 TABLET BY MOUTH TWICE DAILY 04/02/2020 12:00:00 AM EST completed amoxicillin 875 MG / clavulanate 125 MG Oral Tablet [place] ([facility]) Amoxicillin 875 MG / Clavulanate 125 MG Oral Tablet amoxicillin 875 mg-potassium clavulanate 125 mg tablet TAKE 1 TABLET BY MOUTH TWICE DAILY amoxicillin 875 mg- potassium clavulanate 125 mg tablet TAKE 1 TABLET BY MOUTH TWICE DAILY 04/02/2020 12:00:00 AM EST completed amoxicillin 875 MG / clavulanate 125 MG Oral Tablet [place] ([facility]) Amoxicillin 875 MG / Clavulanate 125 MG Oral Tablet amoxicillin 875 mg-potassium clavulanate 125 mg tablet TAKE 1 TABLET BY MOUTH TWICE DAILY amoxicillin 875 mg- potassium clavulanate 125 mg tablet TAKE 1 TABLET BY MOUTH TWICE DAILY 04/02/2020 12:00:00 AM EST completed amoxicillin 875 MG / clavulanate 125 MG Oral Tablet [place] ([facility]) Amoxicillin 875 MG / Clavulanate 125 MG Oral Tablet amoxicillin 875 mg-potassium clavulanate 125 mg tablet TAKE 1 TABLET BY MOUTH TWICE DAILY amoxicillin 875 mg- potassium clavulanate 125 mg tablet TAKE 1 TABLET BY MOUTH TWICE DAILY 04/02/2020 12:00:00 AM EST completed amoxicillin 875 MG / clavulanate 125 MG Oral Tablet [facility]ILDA ([facility]) Amoxicillin 875 MG / Clavulanate 125 MG Oral Tablet amoxicillin 875 mg-potassium clavulanate 125 mg tablet TAKE 1 TABLET BY MOUTH TWICE DAILY amoxicillin 875 mg- potassium clavulanate 125 mg tablet TAKE 1 TABLET BY MOUTH TWICE DAILY 04/02/2020 12:00:00 AM EST completed amoxicillin 875 MG / clavulanate 125 MG Oral Tablet [facility]ILDA ([facility]) Amoxicillin 875 MG / Clavulanate 125 MG Oral Tablet amoxicillin 875 mg-potassium clavulanate 125 mg tablet TAKE 1 TABLET BY MOUTH TWICE DAILY amoxicillin 875 mg- potassium clavulanate 125 mg tablet TAKE 1 TABLET BY MOUTH TWICE DAILY 04/02/2020 12:00:00 AM EST completed amoxicillin 875 MG / clavulanate 125 MG Oral Tablet [facility]DA ([facility]) Amoxicillin 875 MG / Clavulanate 125 MG Oral Tablet amoxicillin 875 mg-potassium clavulanate 125 mg tablet TAKE 1 TABLET BY MOUTH TWICE DAILY amoxicillin 875 mg- potassium clavulanate 125 mg tablet TAKE 1 TABLET BY MOUTH TWICE DAILY 04/02/2020 12:00:00 AM EST completed amoxicillin 875 MG / clavulanate 125 MG Oral Tablet [facility] ([facility]) Amoxicillin 875 MG / Clavulanate 125 MG Oral Tablet amoxicillin 875 mg-potassium clavulanate 125 mg tablet TAKE 1 TABLET BY MOUTH TWICE DAILY amoxicillin 875 mg- potassium clavulanate 125 mg tablet TAKE 1 TABLET BY MOUTH TWICE DAILY 04/02/2020 12:00:00 AM EST completed amoxicillin 875 MG / clavulanate 125 MG Oral Tablet [facility]DA ([facility]) Amoxicillin 875 MG / Clavulanate 125 MG Oral Tablet amoxicillin 875 mg-potassium clavulanate 125 mg tablet TAKE 1 TABLET BY MOUTH TWICE DAILY amoxicillin 875 mg- potassium clavulanate 125 mg tablet TAKE 1 TABLET BY MOUTH TWICE DAILY 04/02/2020 12:00:00 AM EST completed amoxicillin 875 MG / clavulanate 125 MG Oral Tablet [facility] ([facility]) Amoxicillin 875 MG / Clavulanate 125 MG Oral Tablet amoxicillin 875 mg-potassium clavulanate 125 mg tablet TAKE 1 TABLET BY MOUTH TWICE DAILY amoxicillin 875 mg- potassium clavulanate 125 mg tablet TAKE 1 TABLET BY MOUTH TWICE DAILY 04/02/2020 12:00:00 AM EST completed amoxicillin 875 MG / clavulanate 125 MG Oral Tablet [facility] ([facility]) Amoxicillin 875 MG / Clavulanate 125 MG Oral Tablet amoxicillin 875 mg-potassium clavulanate 125 mg tablet TAKE 1 TABLET BY MOUTH TWICE DAILY amoxicillin 875 mg- potassium clavulanate 125 mg tablet TAKE 1 TABLET BY MOUTH TWICE DAILY 04/02/2020 12:00:00 AM EST completed amoxicillin 875 MG / clavulanate 125 MG Oral Tablet [facility] ([facility]) Amoxicillin 875 MG / Clavulanate 125 MG Oral Tablet amoxicillin 875 mg-potassium clavulanate 125 mg tablet TAKE 1 TABLET BY MOUTH TWICE DAILY amoxicillin 875 mg- potassium clavulanate 125 mg tablet TAKE 1 TABLET BY MOUTH TWICE DAILY 04/02/2020 12:00:00 AM EST completed amoxicillin 875 MG / clavulanate 125 MG Oral Tablet [facility] ([facility]) Amoxicillin 875 MG / Clavulanate 125 MG Oral Tablet amoxicillin 875 mg-potassium clavulanate 125 mg tablet TAKE 1 TABLET BY MOUTH TWICE DAILY amoxicillin 875 mg- potassium clavulanate 125 mg tablet TAKE 1 TABLET BY MOUTH TWICE DAILY 04/02/2020 12:00:00 AM EST completed amoxicillin 875 MG / clavulanate 125 MG Oral Tablet [facility] ([facility]) Amoxicillin 875 MG / Clavulanate 125 MG Oral Tablet amoxicillin 875 mg-potassium clavulanate 125 mg tablet TAKE 1 TABLET BY MOUTH TWICE DAILY amoxicillin 875 mg- potassium clavulanate 125 mg tablet TAKE 1 TABLET BY MOUTH TWICE DAILY 04/02/2020 12:00:00 AM EST completed amoxicillin 875 MG / clavulanate 125 MG Oral Tablet [facility] ([facility]) Amoxicillin 875 MG / Clavulanate 125 MG Oral Tablet amoxicillin 875 mg-potassium clavulanate 125 mg tablet TAKE 1 TABLET BY MOUTH TWICE DAILY amoxicillin 875 mg- potassium clavulanate 125 mg tablet TAKE 1 TABLET BY MOUTH TWICE DAILY 04/02/2020 12:00:00 AM EST completed amoxicillin 875 MG / clavulanate 125 MG Oral Tablet [facility] ([facility]) Amoxicillin 875 MG / Clavulanate 125 MG Oral Tablet amoxicillin 875 mg-potassium clavulanate 125 mg tablet TAKE 1 TABLET BY MOUTH TWICE DAILY amoxicillin 875 mg- potassium clavulanate 125 mg tablet TAKE 1 TABLET BY MOUTH TWICE DAILY 04/02/2020 12:00:00 AM EST completed amoxicillin 875 MG / clavulanate 125 MG Oral Tablet [place] ([facility]) atorvastatin 20 MG Oral Tablet Atorvastatin Calcium 01/10/2020 1 2:00:00 AM EST ORAL active [facility] ( [facility]) cetirizine hydrochloride 10 MG Oral Tablet Cetirizine HCL 01/06/2020 12:00:00 AM EST ORAL active [facility] ([facility]) Lorazepam 1 MG Oral Tablet Lorazepam 01/06/2020 12:00:00 AM EST ORAL active [facility] ([facility]) Escitalopram 20 MG Oral Tablet Escitalopram Oxalate 01/06/2020 1 2:00:00 AM EST ORAL active [facility] ( [facility]) Trazodone Hydrochloride 50 MG Oral Tablet Trazodone HCL 01/06/2020 12:00:00 AM EST ORAL active [facility] ([facility]) Hydroxyzine Hydrochloride 25 MG Oral Tablet Hydroxyzine HCL 01/06/2020 12:00:00 AM EST ORAL active [facility] ([facility]) Omeprazole 20 MG Delayed Release Oral Capsule Omeprazole 01/06/2020 12:00:00 AM EST ORAL active [facility] ([facility]) Escitalopram 10 MG Oral Tablet [Lexapro] Lexapro 10 mg tablet take one tablet po daily Lexapro 10 mg tablet take one tablet po daily 10/28/2019 12: 00:00 AM EDT completed escitalopram 1 0 MG Oral Tablet [Lexapro] [facility] ([facility]) Escitalopram 10 MG Oral Tablet [Lexapro] Lexapro 10 mg tablet take one tablet po daily Lexapro 10 mg tablet take one tablet po daily 10/28/2019 12: 00:00 AM EDT completed escitalopram 1 0 MG Oral Tablet [Lexapro] [facility] ([facility]) Escitalopram 10 MG Oral Tablet [Lexapro] Lexapro 10 mg tablet take one tablet po daily Lexapro 10 mg tablet take one tablet po daily 10/28/2019 12: 00:00 AM EDT completed escitalopram 1 0 MG Oral Tablet [Lexapro] [facility] ([facility]) Escitalopram 10 MG Oral Tablet [Lexapro] Lexapro 10 mg tablet take one tablet po daily Lexapro 10 mg tablet take one tablet po daily 10/28/2019 12: 00:00 AM EDT completed escitalopram 1 0 MG Oral Tablet [Lexapro] [facility] ([facility]) Escitalopram 10 MG Oral Tablet [Lexapro] Lexapro 10 mg tablet take one tablet po daily Lexapro 10 mg tablet take one tablet po daily 10/28/2019 12: 00:00 AM EDT completed escitalopram 1 0 MG Oral Tablet [Lexapro] [facility] ([facility]) Escitalopram 10 MG Oral Tablet [Lexapro] Lexapro 10 mg tablet take one tablet po daily Lexapro 10 mg tablet take one tablet po daily 10/28/2019 12: 00:00 AM EDT completed escitalopram 1 0 MG Oral Tablet [Lexapro] [facility] ([facility]) Escitalopram 10 MG Oral Tablet [Lexapro] Lexapro 10 mg tablet take one tablet po daily Lexapro 10 mg tablet take one tablet po daily 10/28/2019 12: 00:00 AM EDT completed escitalopram 1 0 MG Oral Tablet [Lexapro] [facility] ([facility]) Escitalopram 10 MG Oral Tablet [Lexapro] Lexapro 10 mg tablet take one tablet po daily Lexapro 10 mg tablet take one tablet po daily 10/28/2019 12: 00:00 AM EDT completed escitalopram 1 0 MG Oral Tablet [Lexapro] [facility] ([facility]) Escitalopram 10 MG Oral Tablet [Lexapro] Lexapro 10 mg tablet take one tablet po daily Lexapro 10 mg tablet take one tablet po daily 10/28/2019 12: 00:00 AM EDT completed escitalopram 1 0 MG Oral Tablet [Lexapro] [facility] ([facility]) Escitalopram 10 MG Oral Tablet [Lexapro] Lexapro 10 mg tablet take one tablet po daily Lexapro 10 mg tablet take one tablet po daily 10/28/2019 12: 00:00 AM EDT completed escitalopram 1 0 MG [facility] 10 MG Oral Tablet [Lexapro] Lexapro 10 mg tablet take one tablet po daily Lexapro 10 mg tablet take one tablet po daily 10/28/2019 12: 00:00 AM EDT completed escitalopram 1 0 MG Oral Tablet [Lexapro] [facility] Escitalopram 10 MG Oral Tablet [Lexapro] Lexapro 10 mg tablet take one tablet po daily Lexapro 10 mg tablet take one tablet po daily 10/28/2019 12: 00:00 AM EDT completed escitalopram 1 0 MG Oral Tablet [Lexapro] [facility] ([facility]) Escitalopram 10 MG Oral Tablet [Lexapro] Lexapro 10 mg tablet take one tablet po daily Lexapro 10 mg tablet take one tablet po daily 10/28/2019 12: 00:00 AM EDT completed escitalopram 1 0 MG Oral Tablet [Lexapro] [facility] ([facility]) Escitalopram 10 MG Oral Tablet [Lexapro] Lexapro 10 mg tablet take one tablet po daily Lexapro 10 mg tablet take one tablet po daily 10/28/2019 12: 00:00 AM EDT completed escitalopram 1 0 MG Oral Tablet [Lexapro] [facility] ([facility]) Escitalopram 10 MG Oral Tablet [Lexapro] Lexapro 10 mg tablet take one tablet po daily Lexapro 10 mg tablet take one tablet po daily 10/28/2019 12: 00:00 AM EDT completed escitalopram 1 0 MG Oral Tablet [Lexapro] [facility] ([facility]) Escitalopram 10 MG Oral Tablet [Lexapro] Lexapro 10 mg tablet take one tablet po daily Lexapro 10 mg tablet take one tablet po daily 10/28/2019 12: 00:00 AM EDT completed escitalopram 1 0 MG Oral Tablet [Lexapro] [facility] ([facility]) Escitalopram 10 MG Oral Tablet [Lexapro] Lexapro 10 mg tablet take one tablet po daily Lexapro 10 mg tablet take one tablet po daily 10/28/2019 12: 00:00 AM EDT completed escitalopram 1 0 MG Oral Tablet [Lexapro] [facility] ([facility]) Escitalopram 10 MG Oral Tablet [Lexapro] Lexapro 10 mg tablet take one tablet po daily Lexapro 10 mg tablet take one tablet po daily 10/28/2019 12: 00:00 AM EDT completed escitalopram 1 0 MG Oral Tablet [Lexapro] [place] ([facility]) Escitalopram 10 MG Oral Tablet [Lexapro] Lexapro 10 mg tablet take one tablet po daily Lexapro 10 mg tablet take one tablet po daily 10/28/2019 12: 00:00 AM EDT completed escitalopram 1 0 MG Oral Tablet [Lexapro] [facility] ([facility]) Escitalopram 10 MG Oral Tablet [Lexapro] Lexapro 10 mg tablet take one tablet po daily Lexapro 10 mg tablet take one tablet po daily 10/28/2019 12: 00:00 AM EDT completed escitalopram 1 0 MG Oral Tablet [Lexapro] [facility] ([facility]) Escitalopram 10 MG Oral Tablet [Lexapro] Lexapro 10 mg tablet take one tablet po daily Lexapro 10 mg tablet take one tablet po daily 10/28/2019 12: 00:00 AM EDT completed escitalopram 1 0 MG Oral Tablet [Lexapro] [facility] ([facility]) Escitalopram 10 MG Oral Tablet [Lexapro] Lexapro 10 mg tablet take one tablet po daily Lexapro 10 mg tablet take one tablet po daily 10/28/2019 12: 00:00 AM EDT completed escitalopram 1 0 MG Oral Tablet [Lexapro] [facility] ([facility]) Escitalopram 10 MG Oral Tablet [Lexapro] Lexapro 10 mg tablet take one tablet po daily Lexapro 10 mg tablet take one tablet po daily 10/28/2019 12: 00:00 AM EDT completed escitalopram 1 0 MG Oral Tablet [Lexapro] [facility] ([facility]) Escitalopram 10 MG Oral Tablet [Lexapro] Lexapro 10 mg tablet Take 1 tablet by mouth once daily Lexapro 10 mg tablet Take 1 tablet by mouth once daily 09/10/2019 12:00:00 AM EDT completed escitalopram 10 MG Oral Tablet [Lexapro] [facility] ([facility]) Escitalopram 10 MG Oral Tablet [Lexapro] Lexapro 10 mg tablet Take 1 tablet by mouth once daily Lexapro 10 mg tablet Take 1 tablet by mouth once daily 09/10/2019 12:00:00 AM EDT completed escitalopram 10 MG Oral Tablet [Lexapro] [facility] ([facility]) Trazodone Hydrochloride 50 MG Oral Table t trazodone 50 mg tablet TAKE 1 TABLET BY MOUTH ONCE DAILY AT BEDTIME trazodone 50 mg tablet TAKE 1 TABLET BY MOUTH ONCE DAILY AT BEDTIME completed trazodone hydrochloride 50 MG Oral Tablet [facility] ([facility]) Trazodone Hydrochloride 50 MG Oral Table t trazodone 50 mg tablet TAKE 1 TABLET BY MOUTH ONCE DAILY AT BEDTIME trazodone 50 mg tablet TAKE 1 TABLET BY MOUTH ONCE DAILY AT BEDTIME completed trazodone hydrochloride 50 MG Oral Tablet [facility] ([facility]) Hydroxyzine Hydrochloride 10 MG Oral Tab let hydroxyzine HCl 10 mg tablet TAKE 1 TO 2 TABLETS BY MOUTH EVERY 6 HOURS NEEDED hydroxyzine HCl 10 mg tablet TAKE 1 TO 2 TABLETS BY MOUTH EVERY 6 HOURS NEEDED completed hydroxyzine hydrochloride 10 MG Oral Tablet [facility] ([facility]) Trazodone Hydrochloride 50 MG Oral Table t trazodone 50 mg tablet TAKE 1 TABLET BY MOUTH ONCE DAILY AT BEDTIME trazodone 50 mg tablet TAKE 1 TABLET BY MOUTH ONCE DAILY AT BEDTIME completed trazodone hydrochloride 50 MG Oral Tablet [facility] ([facility]) Trazodone Hydrochloride 50 MG Oral Table t trazodone 50 mg tablet TAKE 1 TABLET BY MOUTH ONCE DAILY AT BEDTIME trazodone 50 mg tablet TAKE 1 TABLET BY MOUTH ONCE DAILY AT BEDTIME completed trazodone hydrochloride 50 MG Oral Tablet [facility] ([facility]) cetirizine hydrochloride 10 MG Oral Tabl et cetirizine 10 mg tablet TAKE 1 TABLET BY MOUTH ONCE DAILY cetirizine 10 mg tablet TAKE 1 TABLET BY MOUTH ONCE DA ANTHONY completed cetirizine hyd rochloride 10 MG Oral Tablet [facility] ([facility]) cetirizine hydrochloride 10 MG Oral Tabl et cetirizine 10 mg tablet TAKE 1 TABLET BY MOUTH ONCE DAILY cetirizine 10 mg tablet TAKE 1 TABLET BY MOUTH ONCE DA ANTHONY completed cetirizine hyd rochloride 10 MG Oral Tablet [place] ([facility]) Hydroxyzine Hydrochloride 10 MG Oral Tab let hydroxyzine HCl 10 mg tablet TAKE 1 TO 2 TABLETS BY MOUTH EVERY 6 HOURS NEEDED hydroxyzine HCl 10 mg tablet TAKE 1 TO 2 TABLETS BY MOUTH EVERY 6 HOURS NEEDED completed hydroxyzine hydrochloride 10 MG Oral Tablet [place] ([facility]) fluticasone propionate 50 mcg/actuation nasal spray,suspension [place] 1 spray every day by intranasal route as needed. [id number] 1 spray(s) completed fluticasone propionate 0.05 MG/ACTUAT Me tered Dose Nasal [place] ([facility]) Trazodone Hydrochloride 50 MG Oral Table t trazodone 50 mg tablet TAKE 1 TABLET BY MOUTH ONCE DAILY AT BEDTIME trazodone 50 mg tablet TAKE 1 TABLET BY MOUTH ONCE DAILY AT BEDTIME completed trazodone hydrochloride 50 MG Oral Tablet [facility] ([facility]) Escitalopram 10 MG Oral Tablet escitalop [place] 10 mg tablet TAKE 1 TABLET BY MOUTH ONCE DAILY escitalopram 10 mg tablet TAKE 1 TABLET BY MOUTH ONCE DAILY completed escitalopram 10 MG Oral T ablet [facility] ([facility]) cetirizine hydrochloride 10 MG Oral Tabl et cetirizine 10 mg tablet TAKE 1 TABLET BY MOUTH ONCE DAILY cetirizine 10 mg tablet TAKE 1 TABLET BY MOUTH ONCE DA ANTHONY completed cetirizine hyd rochloride 10 MG Oral Tablet [facility] ([facility]) cetirizine hydrochloride 10 MG Oral Tabl et cetirizine 10 mg tablet TAKE 1 TABLET BY MOUTH ONCE DAILY cetirizine 10 mg tablet TAKE 1 TABLET BY MOUTH ONCE DA ANTHONY completed cetirizine hyd rochloride 10 MG Oral Tablet [facility] ([facility]) cetirizine hydrochloride 10 MG Oral Tabl et cetirizine 10 mg tablet TAKE 1 TABLET BY MOUTH ONCE DAILY cetirizine 10 mg tablet TAKE 1 TABLET BY MOUTH ONCE DA ANTHONY completed cetirizine hyd rochloride 10 MG Oral Tablet [facility] ([facility]) Hydroxyzine Hydrochloride 10 MG Oral Tab let hydroxyzine HCl 10 mg tablet TAKE 1 TO 2 TABLETS BY MOUTH EVERY 6 HOURS NEEDED hydroxyzine HCl 10 mg tablet TAKE 1 TO 2 TABLETS BY MOUTH EVERY 6 HOURS NEEDED completed hydroxyzine hydrochloride 10 MG Oral Tablet [facility] ([facility]) cetirizine hydrochloride 10 MG Oral Tabl et cetirizine 10 mg tablet TAKE 1 TABLET BY MOUTH ONCE DAILY cetirizine 10 mg tablet TAKE 1 TABLET BY MOUTH ONCE DA ANTHONY completed cetirizine hyd rochloride 10 MG Oral Tablet [facility] ([facility]) cetirizine hydrochloride 10 MG Oral Tabl et cetirizine 10 mg tablet TAKE 1 TABLET BY MOUTH ONCE DAILY cetirizine 10 mg tablet TAKE 1 TABLET BY MOUTH ONCE DA ANTHONY completed cetirizine hyd rochloride 10 MG Oral Tablet [facility] ([facility]) cetirizine hydrochloride 10 MG Oral Tabl et cetirizine 10 mg tablet TAKE 1 TABLET BY MOUTH ONCE DAILY cetirizine 10 mg tablet TAKE 1 TABLET BY MOUTH ONCE DA ANTHONY completed cetirizine hyd rochloride 10 MG Oral Tablet [facility] ([facility]) albuterol sulfate HFA 90 mcg/actuation a erosol inhaler INHALE 2 PUFFS BY MOUTH EVERY 4 HOURS NEEDED [id number] completed [id number] 200 ACTUAT albuterol 0.09 MG/ACTUAT Metered Dose Inhaler [facility] ([facility]) Trazodone Hydrochloride 50 MG Oral Table t trazodone 50 mg tablet TAKE 1 TABLET BY MOUTH ONCE DAILY AT BEDTIME trazodone 50 mg tablet TAKE 1 TABLET BY MOUTH ONCE DAILY AT BEDTIME completed [facility] hydrochloride [facility] Escitalopram 10 MG Oral Tablet escitalop [place] 10 mg tablet TAKE 1 TABLET BY MOUTH ONCE DAILY escitalopram 10 mg tablet TAKE 1 TABLET BY MOUTH ONCE DAILY completed escitalopram 10 MG Oral T ablet [facility] ([facility]) Trazodone Hydrochloride 50 MG Oral Table t trazodone 50 mg tablet TAKE 1 TABLET BY MOUTH ONCE DAILY AT BEDTIME trazodone 50 mg tablet TAKE 1 TABLET BY MOUTH ONCE DAILY AT BEDTIME completed trazodone hydrochloride 50 MG Oral Tablet [facility] ([facility]) Trazodone Hydrochloride 50 MG Oral Table t trazodone 50 mg tablet TAKE 1 TABLET BY MOUTH ONCE DAILY AT BEDTIME trazodone 50 mg tablet TAKE 1 TABLET BY MOUTH ONCE DAILY AT BEDTIME completed trazodone hydrochloride 50 MG Oral Tablet [facility] ([facility]) Hydroxyzine Hydrochloride 10 MG Oral Tab let hydroxyzine HCl 10 mg tablet TAKE 1 TO 2 TABLETS BY MOUTH EVERY 6 HOURS NEEDED hydroxyzine HCl 10 mg tablet TAKE 1 TO 2 TABLETS BY MOUTH EVERY 6 HOURS NEEDED completed hydroxyzine hydrochloride 10 MG Oral Tablet [facility] ([facility]) cetirizine hydrochloride 10 MG Oral Tabl et cetirizine 10 mg tablet TAKE 1 TABLET BY MOUTH ONCE DAILY cetirizine 10 mg tablet TAKE 1 TABLET BY MOUTH ONCE DA ANTHONY completed cetirizine hyd rochloride 10 MG Oral Tablet [facility] ([facility]) Escitalopram 10 MG Oral Tablet escitalop [place] 10 mg tablet TAKE 1 TABLET BY MOUTH ONCE DAILY escitalopram 10 mg tablet TAKE 1 TABLET BY MOUTH ONCE DAILY completed escitalopram 10 MG Oral T ablet [place] ([facility]) cetirizine hydrochloride 10 MG Oral Tabl et cetirizine 10 mg tablet TAKE 1 TABLET BY MOUTH ONCE DAILY cetirizine 10 mg tablet TAKE 1 TABLET BY MOUTH ONCE DA ANTHONY completed cetirizine hyd rochloride 10 MG Oral Tablet [facility] ([facility]) Hydroxyzine Hydrochloride 10 MG Oral Tab let hydroxyzine HCl 10 mg tablet TAKE 1 TO 2 TABLETS BY MOUTH EVERY 6 HOURS NEEDED hydroxyzine HCl 10 mg tablet TAKE 1 TO 2 TABLETS BY MOUTH EVERY 6 HOURS NEEDED completed hydroxyzine hydrochloride 10 MG Oral Tablet [facility] ([facility]) Lorazepam 1 MG Oral Tablet lorazepam 1 m g tablet TAKE 1 TABLET BY MOUTH ONCE DAILY NEEDED . DO NOT EXCEED 1 PER 24 HOURS lorazepam 1 mg tablet TAKE 1 TABLET BY MOUTH ONCE DAILY NEEDED . DO NOT EXCEED 1 PER 24 HOURS completed lorazepam 1 MG Oral Tablet ATHEN A ([facility]) cetirizine hydrochloride 10 MG Oral Tabl et cetirizine 10 mg tablet TAKE 1 TABLET BY MOUTH ONCE DAILY cetirizine 10 mg tablet TAKE 1 TABLET BY MOUTH ONCE DA ANTHONY completed cetirizine hyd rochloride 10 MG Oral Tablet [facility] ([facility]) cetirizine hydrochloride 10 MG Oral Tabl et cetirizine 10 mg tablet TAKE 1 TABLET BY MOUTH ONCE DAILY cetirizine 10 mg tablet TAKE 1 TABLET BY MOUTH ONCE DA ANTHONY completed cetirizine hyd rochloride 10 MG Oral Tablet [facility] ([facility]) Sumatriptan 25 MG Oral Tablet sumatripta n 25 mg tablet Take 1 tablet po at onset of migraine, repeat in 2 hrs if headache persists; MDD 2 tablets sumatriptan 25 mg tablet Take 1 tablet po at onset of migraine, repeat in 2 hrs if headache persists; MDD 2 tablets completed sumatriptan 25 MG Oral Tablet [facility] ([facility]) albuterol sulfate HFA 90 mcg/actuation a erosol inhaler INHALE 2 PUFFS BY MOUTH EVERY 4 HOURS NEEDED [id number] completed [id number] 200 ACTUAT albuterol 0.09 MG/ACTUAT Metered Dose Inhaler [place] ([facility]) fluticasone propionate 50 mcg/actuation nasal spray,suspension [place] 1 spray every day by intranasal route as needed. [id number] 1 spray(s) completed fluticasone propionate 0.05 MG/ACTUAT Me tered Dose Nasal [place] ([facility]) Trazodone Hydrochloride 50 MG Oral Table t trazodone 50 mg tablet TAKE 1 TABLET BY MOUTH ONCE DAILY AT BEDTIME trazodone 50 mg tablet TAKE 1 TABLET BY MOUTH ONCE DAILY AT BEDTIME completed trazodone hydrochloride 50 MG Oral Tablet [place] ([facility]) Trazodone Hydrochloride 50 MG Oral Table t trazodone 50 mg tablet TAKE 1 TABLET BY MOUTH ONCE DAILY AT BEDTIME trazodone 50 mg tablet TAKE 1 TABLET BY MOUTH ONCE DAILY AT BEDTIME completed trazodone hydrochloride 50 MG Oral Tablet [facility] ([facility]) Hydroxyzine Hydrochloride 25 MG Oral Tab let hydroxyzine HCl 25 mg tablet TAKE 1 TO 2 TABLETS BY MOUTH ONCE DAILY NEEDED hydroxyzine HCl 25 mg tablet TAKE 1 TO 2 TABLETS BY MOUTH ONCE DAILY NEEDED completed hydroxyzine hydrochloride 25 MG Oral Tablet [facility] ([facility]) Trazodone Hydrochloride 50 MG Oral Table t trazodone 50 mg tablet TAKE 1 TABLET BY MOUTH ONCE DAILY AT BEDTIME trazodone 50 mg tablet TAKE 1 TABLET BY MOUTH ONCE DAILY AT BEDTIME completed trazodone hydrochloride 50 MG Oral Tablet [facility] ([facility]) cetirizine hydrochloride 10 MG Oral Tabl et cetirizine 10 mg tablet TAKE 1 TABLET BY MOUTH ONCE DAILY cetirizine 10 mg tablet TAKE 1 TABLET BY MOUTH ONCE DA ANTHONY completed cetirizine hyd rochloride 10 MG Oral Tablet [facility] ([facility]) Trazodone Hydrochloride 50 MG Oral Table t trazodone 50 mg tablet TAKE 1 TABLET BY MOUTH ONCE DAILY AT BEDTIME trazodone 50 mg tablet TAKE 1 TABLET BY MOUTH ONCE DAILY AT BEDTIME completed trazodone hydrochloride 50 MG Oral Tablet [facility] ([facility]) Escitalopram 10 MG Oral Tablet escitalop [place] 10 mg tablet TAKE 1 TABLET BY MOUTH ONCE DAILY escitalopram 10 mg tablet TAKE 1 TABLET BY MOUTH ONCE DAILY completed escitalopram 10 MG Oral T ablet [facility] ([facility]) cetirizine hydrochloride 10 MG Oral Tabl et cetirizine 10 mg tablet TAKE 1 TABLET BY MOUTH ONCE DAILY cetirizine 10 mg tablet TAKE 1 TABLET BY MOUTH ONCE DA ANTHONY completed cetirizine hyd rochloride 10 MG Oral Tablet [facility] ([facility]) Trazodone Hydrochloride 50 MG Oral Table t trazodone 50 mg tablet TAKE 1 TABLET BY MOUTH ONCE DAILY AT BEDTIME trazodone 50 mg tablet TAKE 1 TABLET BY MOUTH ONCE DAILY AT BEDTIME completed trazodone hydrochloride 50 MG Oral Tablet [facility] ([facility]) Trazodone Hydrochloride 50 MG Oral Table t trazodone 50 mg tablet TAKE 1 TABLET BY MOUTH ONCE DAILY AT BEDTIME trazodone 50 mg tablet TAKE 1 TABLET BY MOUTH ONCE DAILY AT BEDTIME completed trazodone hydrochloride 50 MG Oral Tablet [facility] ([facility]) Lorazepam 1 MG Oral Tablet lorazepam 1 m g tablet TAKE 1 TABLET BY MOUTH ONCE DAILY NEEDED . DO NOT EXCEED 1 PER 24 HOURS lorazepam 1 mg tablet TAKE 1 TABLET BY MOUTH ONCE DAILY NEEDED . DO NOT EXCEED 1 PER 24 HOURS completed lorazepam 1 MG Oral Tablet ATHEN A ([facility]) Escitalopram 10 MG Oral Tablet escitalop [place]uko 10 mg tablet TAKE 1 TABLET BY MOUTH ONCE DAILY escitalopram 10 mg tablet TAKE 1 TABLET BY MOUTH ONCE DAILY completed escitalopram 10 MG Oral T ablet [place] ([facility]) Hydroxyzine Hydrochloride 10 MG Oral Tab let hydroxyzine HCl 10 mg tablet TAKE 1 TO 2 TABLETS BY MOUTH EVERY 6 HOURS NEEDED hydroxyzine HCl 10 mg tablet TAKE 1 TO 2 TABLETS BY MOUTH EVERY 6 HOURS NEEDED completed hydroxyzine hydrochloride 10 MG Oral Tablet [place] ([facility]) Trazodone Hydrochloride 50 MG Oral Table t trazodone 50 mg tablet TAKE 1 TABLET BY MOUTH ONCE DAILY AT BEDTIME trazodone 50 mg tablet TAKE 1 TABLET BY MOUTH ONCE DAILY AT BEDTIME completed trazodone hydrochloride 50 MG Oral Tablet [facility] ([facility]) cetirizine hydrochloride 10 MG Oral Tabl et cetirizine 10 mg tablet TAKE 1 TABLET BY MOUTH ONCE DAILY cetirizine 10 mg tablet TAKE 1 TABLET BY MOUTH ONCE DA ANTHONY completed cetirizine hyd rochloride 10 MG Oral Tablet [facility] ([facility]) Hydroxyzine Hydrochloride 10 MG Oral Tab let hydroxyzine HCl 10 mg tablet TAKE 1 TO 2 TABLETS BY MOUTH EVERY 6 HOURS NEEDED hydroxyzine HCl 10 mg tablet TAKE 1 TO 2 TABLETS BY MOUTH EVERY 6 HOURS NEEDED completed hydroxyzine hydrochloride 10 MG Oral Tablet [facility]ILDA ([facility]) Hydroxyzine Hydrochloride 10 MG Oral Tab let hydroxyzine HCl 10 mg tablet TAKE 1 TO 2 TABLETS BY MOUTH EVERY 6 HOURS NEEDED hydroxyzine HCl 10 mg tablet TAKE 1 TO 2 TABLETS BY MOUTH EVERY 6 HOURS NEEDED completed hydroxyzine hydrochloride 10 MG Oral Tablet [facility]ID[place] ([facility]) Omeprazole 20 MG Delayed Release Oral Ca psule omeprazole 20 mg capsule,delayed release TAKE 1 CAPSULE BY MOUTH IN THE MORNING ON AN EMPTY STOMACH omeprazole 20 mg capsule,delayed release TAKE 1 CAPSULE BY MOUTH IN THE MORNING ON AN EMPTY STOMACH completed omeprazole 20 MG Delayed Release Oral Capsule HILDA ([facility]) Escitalopram 10 MG Oral Tablet escitalop yuko 10 mg tablet TAKE 1 TABLET BY MOUTH ONCE DAILY escitalopram 10 mg tablet TAKE 1 TABLET BY MOUTH ONCE DAILY completed escitalopram 10 MG Oral T ablet HILDA ([facility]) Escitalopram 10 MG Oral Tablet escitalop yuko 10 mg tablet TAKE 1 TABLET BY MOUTH ONCE DAILY escitalopram 10 mg tablet TAKE 1 TABLET BY MOUTH ONCE DAILY completed escitalopram 10 MG Oral T ablet HILDA ([facility]) Trazodone Hydrochloride 50 MG Oral Table t trazodone 50 mg tablet TAKE 1 TABLET BY MOUTH ONCE DAILY AT BEDTIME trazodone 50 mg tablet TAKE 1 TABLET BY MOUTH ONCE DAILY AT BEDTIME completed trazodone hydrochloride 50 MG Oral Tablet [facility] ([facility]) cetirizine hydrochloride 10 MG Oral Tabl et cetirizine 10 mg tablet TAKE 1 TABLET BY MOUTH ONCE DAILY cetirizine 10 mg tablet TAKE 1 TABLET BY MOUTH ONCE DA ANTHONY completed cetirizine hyd rochloride 10 MG Oral Tablet [facility]ILDA ([facility]) cetirizine hydrochloride 10 MG Oral Tabl et cetirizine 10 mg tablet TAKE 1 TABLET BY MOUTH ONCE DAILY cetirizine 10 mg tablet TAKE 1 TABLET BY MOUTH ONCE DA ANTHONY completed cetirizine hyd rochloride 10 MG Oral Tablet [facility]DA ([facility]) Trazodone Hydrochloride 50 MG Oral Table t trazodone 50 mg tablet TAKE 1 TABLET BY MOUTH ONCE DAILY AT BEDTIME trazodone 50 mg tablet TAKE 1 TABLET BY MOUTH ONCE DAILY AT BEDTIME completed trazodone hydrochloride 50 MG Oral Tablet [facility] ([facility]) Trazodone Hydrochloride 50 MG Oral Table t trazodone 50 mg tablet TAKE 1 TABLET BY MOUTH ONCE DAILY AT BEDTIME trazodone 50 mg tablet TAKE 1 TABLET BY MOUTH ONCE DAILY AT BEDTIME completed trazodone hydrochloride 50 MG Oral Tablet [facility] ([facility]) Trazodone Hydrochloride 50 MG Oral Table t trazodone 50 mg tablet TAKE 1 TABLET BY MOUTH ONCE DAILY AT BEDTIME trazodone 50 mg tablet TAKE 1 TABLET BY MOUTH ONCE DAILY AT BEDTIME completed trazodone hydrochloride 50 MG Oral Tablet [facility] ([facility]) cetirizine hydrochloride 10 MG Oral Tabl et cetirizine 10 mg tablet TAKE 1 TABLET BY MOUTH ONCE DAILY cetirizine 10 mg tablet TAKE 1 TABLET BY MOUTH ONCE DA ANTHONY completed cetirizine hyd rochloride 10 MG Oral Tablet [facility] ([facility]) cetirizine hydrochloride 10 MG Oral Tabl et cetirizine 10 mg tablet TAKE 1 TABLET BY MOUTH ONCE DAILY cetirizine 10 mg tablet TAKE 1 TABLET BY MOUTH ONCE DA ANTHONY completed cetirizine hyd rochloride 10 MG Oral Tablet [facility] ([facility]) Trazodone Hydrochloride 50 MG Oral Table t trazodone 50 mg tablet TAKE 1 TABLET BY MOUTH ONCE DAILY AT BEDTIME trazodone 50 mg tablet TAKE 1 TABLET BY MOUTH ONCE DAILY AT BEDTIME completed trazodone hydrochloride 50 MG Oral Tablet [place] ([facility]) Omeprazole 20 MG Delayed Release Oral Ca psule omeprazole 20 mg capsule,delayed release TAKE 1 CAPSULE BY MOUTH IN THE MORNING ON AN EMPTY STOMACH omeprazole 20 mg capsule,delayed release TAKE 1 CAPSULE BY MOUTH IN THE MORNING ON AN EMPTY STOMACH completed omeprazole 20 MG Delayed Release Oral Capsule [facility] ([facility]) Trazodone Hydrochloride 50 MG Oral Table t trazodone 50 mg tablet TAKE 1 TABLET BY MOUTH ONCE DAILY AT BEDTIME trazodone 50 mg tablet TAKE 1 TABLET BY MOUTH ONCE DAILY AT BEDTIME completed trazodone hydrochloride 50 MG Oral Tablet [facility] ([facility]) Hydroxyzine Hydrochloride 10 MG Oral Tab let hydroxyzine HCl 10 mg tablet TAKE 1 TO 2 TABLETS BY MOUTH EVERY 6 HOURS NEEDED hydroxyzine HCl 10 mg tablet TAKE 1 TO 2 TABLETS BY MOUTH EVERY 6 HOURS NEEDED completed hydroxyzine hydrochloride 10 MG Oral Tablet [facility] ([facility]) cetirizine hydrochloride 10 MG Oral Tabl et cetirizine 10 mg tablet TAKE 1 TABLET BY MOUTH ONCE DAILY cetirizine 10 mg tablet TAKE 1 TABLET BY MOUTH ONCE DA ANTHONY completed cetirizine hyd rochloride 10 MG Oral Tablet [facility] ([facility]) Trazodone Hydrochloride 50 MG Oral Table t trazodone 50 mg tablet TAKE 1 TABLET BY MOUTH ONCE DAILY AT BEDTIME trazodone 50 mg tablet TAKE 1 TABLET BY MOUTH ONCE DAILY AT BEDTIME completed trazodone hydrochloride 50 MG Oral Tablet [facility] ([facility]) Escitalopram 10 MG Oral Tablet escitalop yuko 10 mg tablet TAKE 1 TABLET BY MOUTH ONCE DAILY escitalopram 10 mg tablet TAKE 1 TABLET BY MOUTH ONCE DAILY completed escitalopram 10 MG Oral T ablet [facility] ([facility]) Trazodone Hydrochloride 50 MG Oral Table t trazodone 50 mg tablet TAKE 1 TABLET BY MOUTH ONCE DAILY AT BEDTIME trazodone 50 mg tablet TAKE 1 TABLET BY MOUTH ONCE DAILY AT BEDTIME completed trazodone hydrochloride 50 MG Oral Tablet [facility] ([facility]) Trazodone Hydrochloride 50 MG Oral Table t trazodone 50 mg tablet TAKE 1 TABLET BY MOUTH ONCE DAILY AT BEDTIME trazodone 50 mg tablet TAKE 1 TABLET BY MOUTH ONCE DAILY AT BEDTIME completed trazodone hydrochloride 50 MG Oral Tablet [place] ([facility]) Sumatriptan 25 MG Oral Tablet sumatripta n 25 mg tablet Take 1 tablet po at onset of migraine, repeat in 2 hrs if headache persists; MDD 2 tablets sumatriptan 25 mg tablet Take 1 tablet po at onset of migraine, repeat in 2 hrs if headache persists; MDD 2 tablets completed sumatriptan 25 MG Oral Tablet [place] ([facility]) Hydroxyzine Hydrochloride 25 MG Oral Tab let hydroxyzine HCl 25 mg tablet TAKE 1 TO 2 TABLETS BY MOUTH ONCE DAILY NEEDED hydroxyzine HCl 25 mg tablet TAKE 1 TO 2 TABLETS BY MOUTH ONCE DAILY NEEDED completed hydroxyzine hydrochloride 25 MG Oral Tablet [facility] ([facility]) Hydroxyzine Hydrochloride 10 MG Oral Tab let hydroxyzine HCl 10 mg tablet TAKE 1 TO 2 TABLETS BY MOUTH EVERY 6 HOURS NEEDED hydroxyzine HCl 10 mg tablet TAKE 1 TO 2 TABLETS BY MOUTH EVERY 6 HOURS NEEDED completed hydroxyzine hydrochloride 10 MG Oral Tablet [facility] ([facility]) Escitalopram 10 MG Oral Tablet escitalop yuko 10 mg tablet TAKE 1 TABLET BY MOUTH ONCE DAILY escitalopram 10 mg tablet TAKE 1 TABLET BY MOUTH ONCE DAILY completed escitalopram 10 MG Oral T ablet [facility] ([facility]) Trazodone Hydrochloride 50 MG Oral Table t trazodone 50 mg tablet TAKE 1 TABLET BY MOUTH ONCE DAILY AT BEDTIME trazodone 50 mg tablet TAKE 1 TABLET BY MOUTH ONCE DAILY AT BEDTIME completed trazodone hydrochloride 50 MG Oral Tablet [facility] ([facility]) Escitalopram 10 MG Oral Tablet escitalop yuko 10 mg tablet TAKE 1 TABLET BY MOUTH ONCE DAILY escitalopram 10 mg tablet TAKE 1 TABLET BY MOUTH ONCE DAILY completed escitalopram 10 MG Oral T ablet [facility] ([facility]) Trazodone Hydrochloride 50 MG Oral Table t trazodone 50 mg tablet TAKE 1 TABLET BY MOUTH ONCE DAILY AT BEDTIME trazodone 50 mg tablet TAKE 1 TABLET BY MOUTH ONCE DAILY AT BEDTIME completed trazodone hydrochloride 50 MG Oral Tablet [facility] ([facility]) Trazodone Hydrochloride 50 MG Oral Table t trazodone 50 mg tablet TAKE 1 TABLET BY MOUTH ONCE DAILY AT BEDTIME trazodone 50 mg tablet TAKE 1 TABLET BY MOUTH ONCE DAILY AT BEDTIME completed trazodone hydrochloride 50 MG Oral Tablet [facility] ([facility]) cetirizine hydrochloride 10 MG Oral Tabl et cetirizine 10 mg tablet TAKE 1 TABLET BY MOUTH ONCE DAILY cetirizine 10 mg tablet TAKE 1 TABLET BY MOUTH ONCE DA ANTHONY completed cetirizine hyd rochloride 10 MG Oral Tablet [place] ([facility]) Insurance Providers Payer name Policy type / Coverage type Policy ID Covered libertarian ID Covered libertarian's relationship to mahajan Policy Mahajan Plan Information [employer] [id number] SP [id number] Sliding Fee Scale P None S No ne [facility] [id number] SP [id number] MEDICAID [id number] S [id number] MEDICAID [id number] SP [id number] [facility] [id number] SP [id number] [facility] COMP [id number] SP [id number] SELF PAY ONLY SP1 SP SP1 O UNAVAILABLE UNAVAILA BLE SELF PAY UNAVAILABLE SP UNAVAILA BLE EXCELLUS BCBS B [id number] S [id number] [place] 302/307 [id number] SP [id number] [place] 306/806 [id number] SP [id number] Self Pay S UNAVAILABLE S UNA[place]IL[place] BLE [employer] [facility] [place] [id number] MO2 [id number] SELF PAY ONLY [id number] Problems, Conditions, and Diagnoses Code Display Name Description Problem Type Effective Dates Data Source(s) 756469369 COVID-19 Covid-19 Problem 11/19/2020 12:00:00 AM ED T [facility] ([facility]) [id number] COVID-19 Covid-19 Problem 11/19/2020 12:00:00 AM ED T [facility] ([facility]) [id number] Migraine Migraine Problem 05/20/2020 12:00:00 AM ED T [facility] ([facility]) [id number] Headache Headache Problem 05/20/2020 12:00:00 AM ED T [facility] ([facility]) [id number] Numbness Numbness Problem 05/20/2020 12:00:00 AM ED T MED[facility] ([facility]) [id number] Elevated blood-pressure reading without diagnosis of hypertension Elevated Blood-pressure Reading without Diagnosis of Hypertension Problem 02/02/2020 12:00:00 AM EST [facility] ([facility]) [id number] Elevated blood-pressure reading without diagnosis of hypertension Elevated Blood-pressure Reading without Diagnosis of Hypertension Problem 02/02/2020 12:00:00 AM EST [facility] ([facility]) [id number] Elevated blood-pressure reading without diagnosis of hypertension Elevated Blood-pressure Reading without Diagnosis of Hypertension Problem 02/02/2020 12:00:00 AM EST [facility] ([facility]) [id number] Elevated blood-pressure reading without diagnosis of hypertension Elevated Blood-pressure Reading without Diagnosis of Hypertension Problem 02/02/2020 12:00:00 AM EST [facility] ([facility]) [id number] Elevated blood-pressure reading without diagnosis of hypertension Elevated Blood-pressure Reading without Diagnosis of Hypertension Problem 02/02/2020 12:00:00 AM EST [facility] ([facility]) [id number] Elevated blood-pressure reading without diagnosis of hypertension Elevated Blood-pressure Reading without Diagnosis of Hypertension Problem 02/02/2020 12:00:00 AM EST [facility] ([facility]) [id number] Elevated blood-pressure reading without diagnosis of hypertension Elevated Blood-pressure Reading without Diagnosis of Hypertension Problem 02/02/2020 12:00:00 AM EST [facility] ([facility]) [id number] Elevated blood-pressure reading without diagnosis of hypertension Elevated Blood-pressure Reading without Diagnosis of Hypertension Problem 02/02/2020 12:00:00 AM EST [facility] ([facility]) [id number] Elevated blood-pressure reading without diagnosis of hypertension Elevated Blood-pressure Reading without Diagnosis of Hypertension Problem 02/02/2020 12:00:00 AM EST [facility] ([facility]) [id number] Elevated blood-pressure reading without diagnosis of hypertension Elevated Blood-pressure Reading without Diagnosis of Hypertension Problem 02/02/2020 12:00:00 AM EST [facility] ([facility]) [id number] Elevated blood-pressure reading without diagnosis of hypertension Elevated Blood-pressure Reading without Diagnosis of Hypertension Problem 02/02/2020 12:00:00 AM EST [facility] ([facility]) [id number] Elevated blood-pressure reading without diagnosis of hypertension Elevated Blood-pressure Reading without Diagnosis of Hypertension Problem 02/02/2020 12:00:00 AM EST [facility] ([facility]) [id number] Elevated blood-pressure reading without diagnosis of hypertension Elevated Blood-pressure Reading without Diagnosis of Hypertension Problem 02/02/2020 12:00:00 AM EST [facility] ([facility]) [id number] Elevated blood-pressure reading without diagnosis of hypertension Elevated Blood-pressure Reading without Diagnosis of Hypertension Problem 02/02/2020 12:00:00 AM EST [facility] ([facility]) [id number] Elevated blood-pressure reading without diagnosis of hypertension Elevated Blood-pressure Reading without Diagnosis of Hypertension Problem 02/02/2020 12:00:00 AM EST [facility] ([facility]) [id number] Elevated blood-pressure reading without diagnosis of hypertension Elevated Blood-pressure Reading without Diagnosis of Hypertension Problem 02/02/2020 12:00:00 AM EST [facility] ([facility]) [id number] Elevated blood-pressure reading without diagnosis of hypertension Elevated Blood-pressure Reading without Diagnosis of Hypertension Problem 02/02/2020 12:00:00 AM EST [facility] ([facility]) [id number] Elevated blood-pressure reading without diagnosis of hypertension Elevated Blood-pressure Reading without Diagnosis of Hypertension Problem 02/02/2020 12:00:00 AM EST [facility] ([facility]) [id number] Elevated blood-pressure reading without diagnosis of hypertension Elevated Blood-pressure Reading without Diagnosis of Hypertension Problem 02/02/2020 12:00:00 AM EST [facility] ([facility]) [id number] Elevated blood-pressure reading without diagnosis of hypertension Elevated Blood-pressure Reading without Diagnosis of Hypertension Problem 02/02/2020 12:00:00 AM EST [facility] ([facility]) [id number] Elevated blood-pressure reading without diagnosis of hypertension Elevated Blood-pressure Reading without Diagnosis of Hypertension Problem 02/02/2020 12:00:00 AM EST [facility] ([facility]) [id number] Elevated blood-pressure reading without diagnosis of hypertension Elevated Blood-pressure Reading without Diagnosis of Hypertension Problem 02/02/2020 12:00:00 AM EST [facility] ([facility]) [id number] Elevated blood-pressure reading without diagnosis of hypertension Elevated Blood-pressure Reading without Diagnosis of Hypertension Problem 02/02/2020 12:00:00 AM EST [facility] ([facility]) [id number] Elevated blood-pressure reading without diagnosis of hypertension Elevated Blood-pressure Reading without Diagnosis of Hypertension Problem 02/02/2020 12:00:00 AM EST [facility] ([facility]) [id number] Elevated blood-pressure reading without diagnosis of hypertension Elevated Blood-pressure Reading without Diagnosis of Hypertension Problem 02/02/2020 12:00:00 AM EST [facility] ([facility]) [id number] Elevated blood-pressure reading without diagnosis of hypertension Elevated Blood-pressure Reading without Diagnosis of Hypertension Problem 02/02/2020 12:00:00 AM EST [facility] ([facility]) [id number] Elevated blood-pressure reading without diagnosis of hypertension Elevated Blood-pressure Reading without Diagnosis of Hypertension Problem 02/02/2020 12:00:00 AM EST [facility] ([facility]) [id number] Electrocardiogram abnormal Electrocardiogram Abnormal Problem 01/07/2020 12:00:00 AM EST [facility] ([facility]) [id number] Precordial pain Precordial Pain Problem 01/07/2020 12:0 0:00 AM EST HILDA ([facility]) [id number] Palpitations Palpitations Problem 01/07/2020 12:00:00 A M EVE STEV[place] ([facility]) [id number] Gastroesophageal reflux disease Gastroesophageal Reflux Disease Problem 01/07/2020 12:00:00 AM EST [place] ([facility]) [id number] Body mass index 30+ - obesity Body Mass Index 30+ - Ob esity Problem 01/07/2020 12:00:00 AM EST [facility] ([facility]) [id number] Electrocardiogram abnormal Electrocardiogram Abnormal Problem 01/07/2020 12:00:00 AM EST [facility] ([facility]) [id number] Precordial pain Precordial Pain Problem 01/07/2020 12:0 0:00 AM EST [facility]DA ([facility]) [id number] Palpitations Palpitations Problem 01/07/2020 12:00:00 A M EST [facility]DA ([facility]) [id number] Gastroesophageal reflux disease Gastroesophageal Reflux Disease Problem 01/07/2020 12:00:00 AM EST [place] ([facility]) [id number] Body mass index 30+ - obesity Body Mass Index 30+ - Ob esity Problem 01/07/2020 12:00:00 AM EST [facility] ([facility]) K21.9 Gastroesophageal reflux disease Gastroesophageal reflu x disease Problem 01/07/2020 12:00:00 AM EST MEDENT ([facility]) R00.2 Palpitations Palpitations Problem 01/07/2020 12:00:00 A M EST MEDENT ([facility]) Z68.30 Body mass index 30+ - obesity Body mass index 30+ - ob esity Problem 01/07/2020 12:00:00 AM EST MEDENT ([facility]) R94.31 Electrocardiogram abnormal Electrocardiogram abnormal Problem 01/07/2020 12:00:00 AM EST MEDENT ([facility]) R07.2 Precordial pain Precordial pain Problem 01/07/2020 12:0 0:00 AM EST MEDENT ([facility]) [id number] Panic disorder without agoraphobia Panic Disorde r without Agoraphobia Problem 12/29/2019 12:00:00 AM EST [place]IL[place] ([facility]) [id number] Panic disorder without agoraphobia Panic Disorde r without Agoraphobia Problem 12/29/2019 12:00:00 AM EST [place] ([facility]) [id number] Panic disorder without agoraphobia Panic Disorde r without Agoraphobia Problem 12/29/2019 12:00:00 AM EST [place] ([facility]) [id number] Panic disorder without agoraphobia Panic Disorde r without Agoraphobia Problem 12/29/2019 12:00:00 AM EST [place] ([facility]) [id number] Panic disorder without agoraphobia Panic Disorde r without Agoraphobia Problem 12/29/2019 12:00:00 AM EST [place] ([facility]) [id number] Panic disorder without agoraphobia Panic Disorde r without Agoraphobia Problem 12/29/2019 12:00:00 AM EST [place] ([facility]) [id number] Panic disorder without agoraphobia Panic Disorde r without Agoraphobia Problem 12/29/2019 12:00:00 AM EST [facility] ([facility]) [id number] Panic disorder without agoraphobia Panic Disorde r without Agoraphobia Problem 12/29/2019 12:00:00 AM EST [facility]DA ([facility]) [id number] Panic disorder without agoraphobia Panic Disorde r without Agoraphobia Problem 12/29/2019 12:00:00 AM EST [facility] ([facility]) [id number] Panic disorder without agoraphobia Panic Disorde r without Agoraphobia Problem 12/29/2019 12:00:00 AM EST [facility]DA ([facility]) [id number] Panic disorder without agoraphobia Panic Disorde r without Agoraphobia Problem 12/29/2019 12:00:00 AM EST [facility]ILDA ([facility]) [id number] Panic disorder without agoraphobia Panic Disorde r without Agoraphobia Problem 12/29/2019 12:00:00 AM EST [facility]ILDA ([facility]) [id number] Panic disorder without agoraphobia Panic Disorde r without Agoraphobia Problem 12/29/2019 12:00:00 AM EST [facility]ILDA ([facility]) [id number] Panic disorder without agoraphobia Panic Disorde r without Agoraphobia Problem 12/29/2019 12:00:00 AM EST [facility]DA ([facility]) [id number] Panic disorder without agoraphobia Panic Disorde r without Agoraphobia Problem 12/29/2019 12:00:00 AM EST [facility] ([facility]) [id number] Panic disorder without agoraphobia Panic Disorde r without Agoraphobia Problem 12/29/2019 12:00:00 AM EST [facility]ILDA ([facility]) [id number] Panic disorder without agoraphobia Panic Disorde r without Agoraphobia Problem 12/29/2019 12:00:00 AM EST [facility]ILDA ([facility]) [id number] Panic disorder without agoraphobia Panic Disorde r without Agoraphobia Problem 12/29/2019 12:00:00 AM EST HILDA ([facility]) [id number] Panic disorder without agoraphobia Panic Disorde r without Agoraphobia Problem 12/29/2019 12:00:00 AM EST HILDA ([facility]) [id number] Panic disorder without agoraphobia Panic Disorde r without Agoraphobia Problem 12/29/2019 12:00:00 AM EST HILDA ([facility]) [id number] Panic disorder without agoraphobia Panic Disorde r without Agoraphobia Problem 12/29/2019 12:00:00 AM EST [facility]ILDA ([facility]) [id number] Panic disorder without agoraphobia Panic Disorde r without Agoraphobia Problem 12/29/2019 12:00:00 AM EST [facility]ILDA ([facility]) [id number] Panic disorder without agoraphobia Panic Disorde r without Agoraphobia Problem 12/29/2019 12:00:00 AM EST HILDA ([facility]) [id number] Panic disorder without agoraphobia Panic Disorde r without Agoraphobia Problem 12/29/2019 12:00:00 AM EST [facility]ILDA ([facility]) [id number] Panic disorder without agoraphobia Panic Disorde r without Agoraphobia Problem 12/29/2019 12:00:00 AM EST [facility]ILDA ([facility]) [id number] Panic disorder without agoraphobia Panic Disorde r without Agoraphobia Problem 12/29/2019 12:00:00 AM EST [facility]ILDA ([facility]) [id number] Panic disorder without agoraphobia Panic Disorde r without Agoraphobia Problem 12/29/2019 12:00:00 AM EST HILDA ([facility]) [id number] Panic disorder without agoraphobia Panic Disorde r without Agoraphobia Problem 12/29/2019 12:00:00 AM EST [facility]ILDA ([facility]) [id number] Panic disorder without agoraphobia Panic Disorde r without Agoraphobia Problem 12/29/2019 12:00:00 AM EST [facility]ILDA ([facility]) [id number] Panic disorder without agoraphobia Panic Disorde r without Agoraphobia Problem 12/29/2019 12:00:00 AM EST [facility]ILDA ([facility]) [id number] Panic disorder without agoraphobia Panic Disorde r without Agoraphobia Problem 12/29/2019 12:00:00 AM EST [facility]DA ([facility]) [id number] Panic disorder without agoraphobia Panic Disorde r without Agoraphobia Problem 12/29/2019 12:00:00 AM EST [facility] ([facility]) [id number] Panic disorder without agoraphobia Panic Disorde r without Agoraphobia Problem 12/29/2019 12:00:00 AM EST [facility] ([facility]) [id number] Panic disorder without agoraphobia Panic Disorde r without Agoraphobia Problem 12/29/2019 12:00:00 AM EST [facility]DA ([facility]) [id number] Psychophysiologic insomnia Psychophysiologic Insomnia Problem 12/11/2019 12:00:00 AM EST [facility]ILDA ([facility]) [id number] Psychophysiologic insomnia Psychophysiologic Insomnia Problem 12/11/2019 12:00:00 AM [facility] [facility] [id number] Psychophysiologic insomnia Psychophysiologic Insomnia Problem 12/11/2019 12:00:00 AM EST [place] ([facility]) [id number] Psychophysiologic insomnia Psychophysiologic Insomnia Problem 12/11/2019 12:00:00 AM EST [place] ([facility]) [id number] Psychophysiologic insomnia Psychophysiologic Insomnia Problem 12/11/2019 12:00:00 AM EST [place] ([facility]) [id number] Psychophysiologic insomnia Psychophysiologic Insomnia Problem 12/11/2019 12:00:00 AM EST [place] ([facility]) [id number] Psychophysiologic insomnia Psychophysiologic Insomnia Problem 12/11/2019 12:00:00 AM EST [place] ([facility]) [id number] Psychophysiologic insomnia Psychophysiologic Insomnia Problem 12/11/2019 12:00:00 AM EST [place] ([facility]) [id number] Psychophysiologic insomnia Psychophysiologic Insomnia Problem 12/11/2019 12:00:00 AM EST [place] ([facility]) [id number] Psychophysiologic insomnia Psychophysiologic Insomnia Problem 12/11/2019 12:00:00 AM EST [place] ([facility]) [id number] Psychophysiologic insomnia Psychophysiologic Insomnia Problem 12/11/2019 12:00:00 AM EST [place] ([facility]) [id number] Psychophysiologic insomnia Psychophysiologic Insomnia Problem 12/11/2019 12:00:00 AM EST [place] ([facility]) [id number] Psychophysiologic insomnia Psychophysiologic Insomnia Problem 12/11/2019 12:00:00 AM EST [place] ([facility]) [id number] Psychophysiologic insomnia Psychophysiologic Insomnia Problem 12/11/2019 12:00:00 AM EST [place] ([facility]) [id number] Psychophysiologic insomnia Psychophysiologic Insomnia Problem 12/11/2019 12:00:00 AM EST [place] ([facility]) [id number] Psychophysiologic insomnia Psychophysiologic Insomnia Problem 12/11/2019 12:00:00 AM EST [place] ([facility]) [id number] Psychophysiologic insomnia Psychophysiologic Insomnia Problem 12/11/2019 12:00:00 AM EST [place] ([facility]) [id number] Psychophysiologic insomnia Psychophysiologic Insomnia Problem 12/11/2019 12:00:00 AM EST [place] ([facility]) [id number] Psychophysiologic insomnia Psychophysiologic Insomnia Problem 12/11/2019 12:00:00 AM EST [place] ([facility]) [id number] Psychophysiologic insomnia Psychophysiologic Insomnia Problem 12/11/2019 12:00:00 AM EST [place] ([facility]) [id number] Psychophysiologic insomnia Psychophysiologic Insomnia Problem 12/11/2019 12:00:00 AM EST [place] ([facility]) [id number] Psychophysiologic insomnia Psychophysiologic Insomnia Problem 12/11/2019 12:00:00 AM EST [place] ([facility]) [id number] Psychophysiologic insomnia Psychophysiologic Insomnia Problem 12/11/2019 12:00:00 AM EST [place] ([facility]) [id number] Psychophysiologic insomnia Psychophysiologic Insomnia Problem 12/11/2019 12:00:00 AM EST [place] ([facility]) [id number] Psychophysiologic insomnia Psychophysiologic Insomnia Problem 12/11/2019 12:00:00 AM EST [place] ([facility]) [id number] Psychophysiologic insomnia Psychophysiologic Insomnia Problem 12/11/2019 12:00:00 AM EST [place] ([facility]) [id number] Psychophysiologic insomnia Psychophysiologic Insomnia Problem 12/11/2019 12:00:00 AM EST [place] ([facility]) [id number] Psychophysiologic insomnia Psychophysiologic Insomnia Problem 12/11/2019 12:00:00 AM EST [place] ([facility]) [id number] Psychophysiologic insomnia Psychophysiologic Insomnia Problem 12/11/2019 12:00:00 AM EST [place] ([facility]) [id number] Psychophysiologic insomnia Psychophysiologic Insomnia Problem 12/11/2019 12:00:00 AM EST [place] ([facility]) [id number] Psychophysiologic insomnia Psychophysiologic Insomnia Problem 12/11/2019 12:00:00 AM EST [place] ([facility]) [id number] Psychophysiologic insomnia Psychophysiologic Insomnia Problem 12/11/2019 12:00:00 AM EST [place] ([facility]) [id number] Psychophysiologic insomnia Psychophysiologic Insomnia Problem 12/11/2019 12:00:00 AM EST [place] ([facility]) [id number] Psychophysiologic insomnia Psychophysiologic Insomnia Problem 12/11/2019 12:00:00 AM EST [place] ([facility]) [id number] Psychophysiologic insomnia Psychophysiologic Insomnia Problem 12/11/2019 12:00:00 AM EST [place] ([facility]) [id number] Psychophysiologic insomnia Psychophysiologic Insomnia Problem 12/11/2019 12:00:00 AM EST [place] ([facility]) [id number] Psychophysiologic insomnia Psychophysiologic Insomnia Problem 12/11/2019 12:00:00 AM EST [place] ([facility]) [id number] Psychophysiologic insomnia Psychophysiologic Insomnia Problem 12/11/2019 12:00:00 AM EST [place] ([facility]) [id number] Generalized anxiety disorder Generalized Anxiety Disor sallie Problem 12/01/2019 12:00:00 AM EDT [place] ([facility]) [id number] Generalized anxiety disorder Generalized Anxiety Disor sallie Problem 12/01/2019 12:00:00 AM EDT [place] ([facility]) [id number] Generalized anxiety disorder Generalized Anxiety Disor sallie Problem 12/01/2019 12:00:00 AM EDT [place] ([facility]) [id number] Generalized anxiety disorder Generalized Anxiety Disor sallie Problem 12/01/2019 12:00:00 AM EDT [place] ([facility]) [id number] Generalized anxiety disorder Generalized Anxiety Disor sallie Problem 12/01/2019 12:00:00 AM EDT [place] ([facility]) [id number] Generalized anxiety disorder Generalized Anxiety Disor sallie Problem 12/01/2019 12:00:00 AM EDT [place] ([facility]) [id number] Generalized anxiety disorder Generalized Anxiety Disor sallie Problem 12/01/2019 12:00:00 AM EDT [place] ([facility]) [id number] Generalized anxiety disorder Generalized Anxiety Disor sallie Problem 12/01/2019 12:00:00 AM EDT [place] ([facility]) [id number] Generalized anxiety disorder Generalized Anxiety Disor sallie Problem 12/01/2019 12:00:00 AM EDT [place] ([facility]) [id number] Generalized anxiety disorder Generalized Anxiety Disor sallie Problem 12/01/2019 12:00:00 AM EDT [place] ([facility]) [id number] Generalized anxiety disorder Generalized Anxiety Disor sallie Problem 12/01/2019 12:00:00 AM EDT [place] ([facility]) [id number] Generalized anxiety disorder Generalized Anxiety Disor sallie Problem 12/01/2019 12:00:00 AM EDT [place] ([facility]) [id number] Generalized anxiety disorder Generalized Anxiety Disor sallie Problem 12/01/2019 12:00:00 AM EDT [place] ([facility]) [id number] Generalized anxiety disorder Generalized Anxiety Disor sallie Problem 12/01/2019 12:00:00 AM EDT [place] ([facility]) [id number] Generalized anxiety disorder Generalized Anxiety Disor sallie Problem 12/01/2019 12:00:00 AM EDT [place] ([facility]) [id number] Generalized anxiety disorder Generalized Anxiety Disor sallie Problem 12/01/2019 12:00:00 AM EDT [place] ([facility]) [id number] Generalized anxiety disorder Generalized Anxiety Disor sallie Problem 12/01/2019 12:00:00 AM EDT [place] ([facility]) [id number] Generalized anxiety disorder Generalized Anxiety Disor sallie Problem 12/01/2019 12:00:00 AM EDT [place] ([facility]) [id number] Generalized anxiety disorder Generalized Anxiety Disor sallie Problem 12/01/2019 12:00:00 AM EDT [place] ([facility]) [id number] Generalized anxiety disorder Generalized Anxiety Disor sallie Problem 12/01/2019 12:00:00 AM EDT [place] ([facility]) [id number] Generalized anxiety disorder Generalized Anxiety Disor sallie Problem 12/01/2019 12:00:00 AM EDT [place] ([facility]) [id number] Generalized anxiety disorder Generalized Anxiety Disor sallie Problem 12/01/2019 12:00:00 AM EDT [place] ([facility]) [id number] Generalized anxiety disorder Generalized Anxiety Disor sallie Problem 12/01/2019 12:00:00 AM EDT [place] ([facility]) [id number] Generalized anxiety disorder Generalized Anxiety Disor sallie Problem 12/01/2019 12:00:00 AM EDT [place] ([facility]) [id number] Generalized anxiety disorder Generalized Anxiety Disor sallie Problem 12/01/2019 12:00:00 AM EDT [place] ([facility]) [id number] Generalized anxiety disorder Generalized Anxiety Disor sallie Problem 12/01/2019 12:00:00 AM EDT [place] ([facility]) [id number] Generalized anxiety disorder Generalized Anxiety Disor sallie Problem 12/01/2019 12:00:00 AM EDT [place] ([facility]) [id number] Generalized anxiety disorder Generalized Anxiety Disor sallie Problem 12/01/2019 12:00:00 AM EDT [place] ([facility]) [id number] Generalized anxiety disorder Generalized Anxiety Disor sallie Problem 12/01/2019 12:00:00 AM EDT [place] ([facility]) [id number] Generalized anxiety disorder Generalized Anxiety Disor sallie Problem 12/01/2019 12:00:00 AM EDT [place] ([facility]) [id number] Generalized anxiety disorder Generalized Anxiety Disor sallie Problem 12/01/2019 12:00:00 AM EDT [place] ([facility]) [id number] Generalized anxiety disorder Generalized Anxiety Disor sallie Problem 12/01/2019 12:00:00 AM EDT [place] ([facility]) [id number] Generalized anxiety disorder Generalized Anxiety Disor sallie Problem 12/01/2019 12:00:00 AM EDT [place] ([facility]) [id number] Generalized anxiety disorder Generalized Anxiety Disor sallie Problem 12/01/2019 12:00:00 AM EDT [place] ([facility]) [id number] Generalized anxiety disorder Generalized Anxiety Disor sallie Problem 12/01/2019 12:00:00 AM EDT [place] ([facility]) [id number] Generalized anxiety disorder Generalized Anxiety Disor sallie Problem 12/01/2019 12:00:00 AM EDT [place] ([facility]) [id number] Generalized anxiety disorder Generalized Anxiety Disor sallie Problem 12/01/2019 12:00:00 AM EDT [place] ([facility]) [id number] Generalized anxiety disorder Generalized Anxiety Disor sallie Problem 12/01/2019 12:00:00 AM EDT [place] ([facility]) [id number] Generalized anxiety disorder Generalized Anxiety Disor sallie Problem 12/01/2019 12:00:00 AM EDT [place] ([facility]) [id number] Generalized anxiety disorder Generalized Anxiety Disor sallie Problem 12/01/2019 12:00:00 AM EDT [place] ([facility]) 427.89 Bradycardia Bradycardia 10/28/2019 04:05:45 PM EDT [facility] [id number] Chest pain, unspecified Chest pain, unspecified 10/28/2019 04:05:45 PM EDT [facility] 526655409 Chronic insomnia Chronic insomnia 10/28/2019 04 :05:45 PM EDT [facility] [id number] Cardiovascular measurement - finding Car diovascular Measurement - Finding Problem 10/28/2019 12:00:00 AM EDT [place] ([facility]) 40822273 Chest pain Chest Pain Problem 10/28/2019 12:00:00 AM ED T [place] ([facility]) [id number] Cardiovascular measurement - finding Car diovascular Measurement - Finding Problem 10/28/2019 12:00:00 AM EDT [place] ([facility]) 53704090 Chest pain Chest Pain Problem 10/28/2019 12:00:00 AM ED T [place] ([facility]) [id number] Cardiovascular measurement - finding Car diovascular Measurement - Finding Problem 10/28/2019 12:00:00 AM EDT [place] ([facility]) [id number] Chest pain Chest Pain Problem 10/28/2019 12:00:00 AM ED T [place] ([facility]) [id number] Cardiovascular measurement - finding Car diovascular Measurement - Finding Problem 10/28/2019 12:00:00 AM EDT [place] ([facility]) [id number] Chest pain Chest Pain Problem 10/28/2019 12:00:00 AM ED T [place] ([facility]) [id number] Cardiovascular measurement - finding Car diovascular Measurement - Finding Problem 10/28/2019 12:00:00 AM EDT [place] ([facility]) [id number] Chest pain Chest Pain Problem 10/28/2019 12:00:00 AM ED T [place] ([facility]) [id number] Cardiovascular measurement - finding Car diovascular Measurement - Finding Problem 10/28/2019 12:00:00 AM EDT [place] ([facility]) [id number] Chest pain Chest Pain Problem 10/28/2019 12:00:00 AM ED T [place] ([facility]) [id number] Cardiovascular measurement - finding Car diovascular Measurement - Finding Problem 10/28/2019 12:00:00 AM EDT [place] ([facility]) [id number] Chest pain Chest Pain Problem 10/28/2019 12:00:00 AM ED T [place] ([facility]) [id number] Cardiovascular measurement - finding Car diovascular Measurement - Finding Problem 10/28/2019 12:00:00 AM EDT [place] ([facility]) [id number] Chest pain Chest Pain Problem 10/28/2019 12:00:00 AM ED T [place] ([facility]) [id number] Cardiovascular measurement - finding Car diovascular Measurement - Finding Problem 10/28/2019 12:00:00 AM EDT [place] ([facility]) [id number] Chest pain Chest Pain Problem 10/28/2019 12:00:00 AM ED T [place] ([facility]) [id number] Cardiovascular measurement - finding Car diovascular Measurement - Finding Problem 10/28/2019 12:00:00 AM EDT [place] ([facility]) 97160252 Chest pain Chest Pain Problem 10/28/2019 12:00:00 AM ED T [place] ([facility]) [id number] Cardiovascular measurement - finding Car diovascular Measurement - Finding Problem 10/28/2019 12:00:00 AM EDT [place] ([facility]) [id number] Chest pain Chest Pain Problem 10/28/2019 12:00:00 AM ED T [place] ([facility]) [id number] Cardiovascular measurement - finding Car diovascular Measurement - Finding Problem 10/28/2019 12:00:00 AM EDT [place] ([facility]) [id number] Chest pain Chest Pain Problem 10/28/2019 12:00:00 AM ED T [place] ([facility]) [id number] Cardiovascular measurement - finding Car diovascular Measurement - Finding Problem 10/28/2019 12:00:00 AM EDT [place] ([facility]) [id number] Chest pain Chest Pain Problem 10/28/2019 12:00:00 AM ED T [place] ([facility]) [id number] Cardiovascular measurement - finding Car diovascular Measurement - Finding Problem 10/28/2019 12:00:00 AM EDT [place] ([facility]) [id number] Chest pain Chest Pain Problem 10/28/2019 12:00:00 AM ED T [place] ([facility]) [id number] Cardiovascular measurement - finding Car diovascular Measurement - Finding Problem 10/28/2019 12:00:00 AM EDT [place] ([facility]) 40491423 Chest pain Chest Pain Problem 10/28/2019 12:00:00 AM ED T [place] ([facility]) [id number] Cardiovascular measurement - finding Car diovascular Measurement - Finding Problem 10/28/2019 12:00:00 AM EDT [place] ([facility]) [id number] Chest pain Chest Pain Problem 10/28/2019 12:00:00 AM ED T [place] ([facility]) [id number] Cardiovascular measurement - finding Car diovascular Measurement - Finding Problem 10/28/2019 12:00:00 AM EDT [place] ([facility]) 13490160 Chest pain Chest Pain Problem 10/28/2019 12:00:00 AM ED T [place] ([facility]) [id number] Cardiovascular measurement - finding Car diovascular Measurement - Finding Problem 10/28/2019 12:00:00 AM EDT [place] ([facility]) [id number] Chest pain Chest Pain Problem 10/28/2019 12:00:00 AM ED T [place] ([facility]) [id number] Cardiovascular measurement - finding Car diovascular Measurement - Finding Problem 10/28/2019 12:00:00 AM EDT [place] ([facility]) [id number] Chest pain Chest Pain Problem 10/28/2019 12:00:00 AM ED T [place] ([facility]) [id number] Cardiovascular measurement - finding Car diovascular Measurement - Finding Problem 10/28/2019 12:00:00 AM EDT [place] ([facility]) [id number] Chest pain Chest Pain Problem 10/28/2019 12:00:00 AM ED T [place] ([facility]) [id number] Cardiovascular measurement - finding Car diovascular Measurement - Finding Problem 10/28/2019 12:00:00 AM EDT [place] ([facility]) [id number] Chest pain Chest Pain Problem 10/28/2019 12:00:00 AM ED T [place] ([facility]) 879983404 Cardiovascular measurement - finding Car diovascular Measurement - Finding Problem 10/28/2019 12:00:00 AM EDT [place] ([facility]) [id number] Chest pain Chest Pain Problem 10/28/2019 12:00:00 AM ED T [place] ([facility]) [id number] Cardiovascular measurement - finding Car diovascular Measurement - Finding Problem 10/28/2019 12:00:00 AM EDT [place] ([facility]) [id number] Chest pain Chest Pain Problem 10/28/2019 12:00:00 AM ED T [place] ([facility]) 300.02 GENERALIZED ANXIETY DISORDER GENERALIZED ANXIETY DISOR SALLIE 10/14/2019 09:01:07 AM EDT [facility] 300.01 PANIC DISORDER PANIC DISORDER 10/14/2019 09:01: 07 AM EDT [facility] [id number] Panic disorder Panic Disorder Problem 10/14/2019 12:00:00 AM EDT - 06/22/2020 12:00:00 AM EDT [place] ([facility]) [id number] Panic disorder Panic Disorder Problem 10/14/2019 12:00:00 AM EDT - 06/22/2020 12:00:00 AM EDT [place] ([facility]) [id number] Panic disorder Panic Disorder Problem 10/14/2019 12:00:00 AM EDT - 06/22/2020 12:00:00 AM EDT [place] ([facility]) [id number] Panic disorder Panic Disorder Problem 10/14/2019 12:00:00 AM EDT - 06/22/2020 12:00:00 AM EDT [place] ([facility]) [id number] Panic disorder Panic Disorder Problem 10/14/2019 12:00:00 AM EDT - 06/22/2020 12:00:00 AM EDT [place] ([facility]) 850690554 Panic disorder Panic Disorder Problem 10/14/2019 12:00:00 AM EDT - 06/22/2020 12:00:00 AM EDT [place] ([facility]) [id number] Panic disorder Panic Disorder Problem 10/14/2019 12:00:00 AM EDT - 06/22/2020 12:00:00 AM EDT [place] ([facility]) [id number] Panic disorder Panic Disorder Problem 10/14/2019 12:00:00 AM EDT - 06/22/2020 12:00:00 AM EDT [place] ([facility]) [id number] Panic disorder Panic Disorder Problem 10/14/2019 12:00: 00 AM EDT [place] ([facility]) [id number] Panic disorder Panic Disorder Problem 10/14/2019 12:00: 00 AM EDT [place] ([facility]) [id number] Panic disorder Panic Disorder Problem 10/14/2019 12:00: 00 AM EDT [place] ([facility]) [id number] Panic disorder Panic Disorder Problem 10/14/2019 12:00:00 AM EDT - 06/22/2020 12:00:00 AM EDT [place] ([facility]) [id number] Panic disorder Panic Disorder Problem 10/14/2019 12:00:00 AM EDT - 06/22/2020 12:00:00 AM EDT [place] ([facility]) [id number] Panic disorder Panic Disorder Problem 10/14/2019 12:00:00 AM EDT - 06/22/2020 12:00:00 AM EDT [place] ([facility]) [id number] Panic disorder Panic Disorder Problem 10/14/2019 12:00:00 AM EDT - 06/22/2020 12:00:00 AM EDT [place] ([facility]) [id number] Panic disorder Panic Disorder Problem 10/14/2019 12:00:00 AM EDT - 06/22/2020 12:00:00 AM EDT [place] ([facility]) [id number] Panic disorder Panic Disorder Problem 10/14/2019 12:00:00 AM EDT - 06/22/2020 12:00:00 AM EDT [place] ([facility]) [id number] Panic disorder Panic Disorder Problem 10/14/2019 12:00: 00 AM EDT [place] ([facility]) [id number] Panic disorder Panic Disorder Problem 10/14/2019 12:00: 00 AM EDT [place] ([facility]) [id number] Panic disorder Panic Disorder Problem 10/14/2019 12:00: 00 AM EDT [place] ([facility]) [id number] Panic disorder Panic Disorder Problem 10/14/2019 12:00:00 AM EDT - 06/22/2020 12:00:00 AM EDT [place] ([facility]) [id number] Panic disorder Panic Disorder Problem 10/14/2019 12:00:00 AM EDT - 06/22/2020 12:00:00 AM EDT [place] ([facility]) [id number] Panic disorder Panic Disorder Problem 10/14/2019 12:00: 00 AM EDT [place] ([facility]) [id number] Panic disorder Panic Disorder Problem 09/10/2019 12:00:00 AM EDT - 12/29/2019 12:00:00 AM EST [place] ([facility]) [id number] Procedure by method Procedure by Method Problem 0 09/10/2019 12:00:00 AM EDT - 12/11/2019 12:00:00 AM EST [place] ([facility]) [id number] Adjustment disorder with mixed anxiety a nd depressed mood Adjustment Disorder with Mixed Anxiety and Depressed Mood Problem 12:00:00 AM EDT - 06/22/2020 12:00:00 AM EDT [place] ([facility]) [id number] Panic disorder Panic Disorder Problem 09/10/2019 12:00:00 AM EDT - 12/29/2019 12:00:00 AM EST [place] ([facility]) [id number] Procedure by method Procedure by Method Problem 0 09/10/2019 12:00:00 AM EDT - 12/11/2019 12:00:00 AM EST [place] ([facility]) [id number] Adjustment disorder with mixed anxiety a nd depressed mood Adjustment Disorder with Mixed Anxiety and Depressed Mood Problem 12:00:00 AM EDT - 06/22/2020 12:00:00 AM EDT [place] ([facility]) [id number] Panic disorder Panic Disorder Problem 09/10/2019 12:00:00 AM EDT - 12/29/2019 12:00:00 AM EST [place] ([facility]) [id number] Procedure by method Procedure by Method Problem 0 09/10/2019 12:00:00 AM EDT - 12/11/2019 12:00:00 AM EST [place] ([facility]) [id number] Adjustment disorder with mixed anxiety a nd depressed mood Adjustment Disorder with Mixed Anxiety and Depressed Mood Problem 12:00:00 AM EDT - 06/22/2020 12:00:00 AM EDT [place] ([facility]) [id number] Panic disorder Panic Disorder Problem 09/10/2019 12:00:00 AM EDT - 12/29/2019 12:00:00 AM EST [place] ([facility]) [id number] Procedure by method Procedure by Method Problem 0 09/10/2019 12:00:00 AM EDT - 12/11/2019 12:00:00 AM EST [place] ([facility]) [id number] Adjustment disorder with mixed anxiety a nd depressed mood Adjustment Disorder with Mixed Anxiety and Depressed Mood Problem 12:00:00 AM EDT - 06/22/2020 12:00:00 AM EDT [place] ([facility]) 101281208 Panic disorder Panic Disorder Problem 09/10/2019 12:00:00 AM EDT - 12/29/2019 12:00:00 AM EST [place] ([facility]) [id number] Procedure by method Procedure by Method Problem 0 09/10/2019 12:00:00 AM EDT - 12/11/2019 12:00:00 AM EST [place] ([facility]) [id number] Adjustment disorder with mixed anxiety a nd depressed mood Adjustment Disorder with Mixed Anxiety and Depressed Mood Problem 12:00:00 AM EDT - 06/22/2020 12:00:00 AM EDT [place] ([facility]) [id number] Panic disorder Panic Disorder Problem 09/10/2019 12:00:00 AM EDT - 12/29/2019 12:00:00 AM EST [place] ([facility]) [id number] Procedure by method Procedure by Method Problem 0 09/10/2019 12:00:00 AM EDT - 12/11/2019 12:00:00 AM EST [place] ([facility]) [id number] Adjustment disorder with mixed anxiety a nd depressed mood Adjustment Disorder with Mixed Anxiety and Depressed Mood Problem 12:00:00 AM EDT - 06/22/2020 12:00:00 AM EDT [facility] ([facility]) [id number] Panic disorder Panic Disorder Problem 09/10/2019 12:00:00 AM EDT - 12/29/2019 12:00:00 AM EST [facility] ([facility]) [id number] Procedure by method Procedure by Method Problem 0 09/10/2019 12:00:00 AM EDT - 12/11/2019 12:00:00 AM EST [place] ([facility]) [id number] Adjustment disorder with mixed anxiety a nd depressed mood Adjustment Disorder with Mixed Anxiety and Depressed Mood Problem 12:00:00 AM EDT - 06/22/2020 12:00:00 AM EDT [place] ([facility]) [id number] Panic disorder Panic Disorder Problem 09/10/2019 12:00:00 AM EDT - 12/29/2019 12:00:00 AM EST [place] ([facility]) [id number] Procedure by method Procedure by Method Problem 0 09/10/2019 12:00:00 AM EDT - 12/11/2019 12:00:00 AM EST [place] ([facility]) [id number] Adjustment disorder with mixed anxiety a nd depressed mood Adjustment Disorder with Mixed Anxiety and Depressed Mood Problem 12:00:00 AM EDT - 06/22/2020 12:00:00 AM EDT [place] ([facility]) [id number] Panic disorder Panic Disorder Problem 09/10/2019 12:00:00 AM EDT - 12/29/2019 12:00:00 AM EST [place] ([facility]) [id number] Procedure by method Procedure by Method Problem 0 09/10/2019 12:00:00 AM EDT - 12/11/2019 12:00:00 AM EST [place] ([facility]) [id number] Adjustment disorder with mixed anxiety a nd depressed mood Adjustment Disorder with Mixed Anxiety and Depressed Mood Problem 12:00:00 AM EDT - 06/22/2020 12:00:00 AM EDT [place] ([facility]) [id number] Panic disorder Panic Disorder Problem 09/10/2019 12:00:00 AM EDT - 12/29/2019 12:00:00 AM EST [place] ([facility]) [id number] Procedure by method Procedure by Method Problem 0 09/10/2019 12:00:00 AM EDT - 12/11/2019 12:00:00 AM EST [place] ([facility]) [id number] Panic disorder Panic Disorder Problem 09/10/2019 12:00:00 AM EDT - 12/29/2019 12:00:00 AM EST [place] ([facility]) [id number] Procedure by method Procedure by Method Problem 0 09/10/2019 12:00:00 AM EDT - 12/11/2019 12:00:00 AM EST [place] ([facility]) [id number] Panic disorder Panic Disorder Problem 09/10/2019 12:00:00 AM EDT - 12/29/2019 12:00:00 AM EST [place] ([facility]) [id number] Procedure by method Procedure by Method Problem 0 09/10/2019 12:00:00 AM EDT - 12/11/2019 12:00:00 AM EST [place] ([facility]) [id number] Panic disorder Panic Disorder Problem 09/10/2019 12:00:00 AM EDT - 12/29/2019 12:00:00 AM EST [place] ([facility]) [id number] Procedure by method Procedure by Method Problem 0 09/10/2019 12:00:00 AM EDT - 12/11/2019 12:00:00 AM EST [place] ([facility]) [id number] Panic disorder Panic Disorder Problem 09/10/2019 12:00:00 AM EDT - 12/29/2019 12:00:00 AM EST [place] ([facility]) [id number] Procedure by method Procedure by Method Problem 0 09/10/2019 12:00:00 AM EDT - 12/11/2019 12:00:00 AM EST [place] ([facility]) [id number] Panic disorder Panic Disorder Problem 09/10/2019 12:00:00 AM EDT - 12/29/2019 12:00:00 AM EST [place] ([facility]) [id number] Procedure by method Procedure by Method Problem 0 09/10/2019 12:00:00 AM EDT - 12/11/2019 12:00:00 AM EST [place] ([facility]) [id number] Adjustment disorder with mixed anxiety a nd depressed mood Adjustment Disorder with Mixed Anxiety and Depressed Mood Problem 12:00:00 AM EDT - 06/22/2020 12:00:00 AM EDT [place] ([facility]) [id number] Panic disorder Panic Disorder Problem 09/10/2019 12:00:00 AM EDT - 12/29/2019 12:00:00 AM EST [place] ([facility]) [id number] Procedure by method Procedure by Method Problem 0 09/10/2019 12:00:00 AM EDT - 12/11/2019 12:00:00 AM EST [place] ([facility]) [id number] Adjustment disorder with mixed anxiety a nd depressed mood Adjustment Disorder with Mixed Anxiety and Depressed Mood Problem 12:00:00 AM EDT - 06/22/2020 12:00:00 AM EDT [place] ([facility]) [id number] Panic disorder Panic Disorder Problem 09/10/2019 12:00:00 AM EDT - 12/29/2019 12:00:00 AM EST [place] ([facility]) [id number] Procedure by method Procedure by Method Problem 0 09/10/2019 12:00:00 AM EDT - 12/11/2019 12:00:00 AM EST [place] ([facility]) [id number] Adjustment disorder with mixed anxiety a nd depressed mood Adjustment Disorder with Mixed Anxiety and Depressed Mood Problem 12:00:00 AM EDT - 06/22/2020 12:00:00 AM EDT [place] ([facility]) [id number] Panic disorder Panic Disorder Problem 09/10/2019 12:00:00 AM EDT - 12/29/2019 12:00:00 AM EST [place] ([facility]) [id number] Procedure by method Procedure by Method Problem 0 09/10/2019 12:00:00 AM EDT - 12/11/2019 12:00:00 AM EST [place] ([facility]) [id number] Adjustment disorder with mixed anxiety a nd depressed mood Adjustment Disorder with Mixed Anxiety and Depressed Mood Problem 020 12:00:00 AM EDT - 06/22/2020 12:00:00 AM EDT [place] ([facility]) [id number] Panic disorder Panic Disorder Problem 09/10/2019 12:00:00 AM EDT - 12/29/2019 12:00:00 AM EST [place] ([facility]) [id number] Procedure by method Procedure by Method Problem 0 09/10/2019 12:00:00 AM EDT - 12/11/2019 12:00:00 AM EST [place] ([facility]) [id number] Panic disorder Panic Disorder Problem 09/10/2019 12:00:00 AM EDT - 12/29/2019 12:00:00 AM EST [place] ([facility]) [id number] Procedure by method Procedure by Method Problem 0 09/10/2019 12:00:00 AM EDT - 12/11/2019 12:00:00 AM EST [place] ([facility]) [id number] Adjustment disorder with mixed anxiety a nd depressed mood Adjustment Disorder with Mixed Anxiety and Depressed Mood Problem 020 12:00:00 AM EDT - 06/22/2020 12:00:00 AM EDT [place] ([facility]) [id number] Panic disorder Panic Disorder Problem 09/10/2019 12:00:00 AM EDT - 12/29/2019 12:00:00 AM EST [place] ([facility]) [id number] Procedure by method Procedure by Method Problem 0 09/10/2019 12:00:00 AM EDT - 12/11/2019 12:00:00 AM EST [place] ([facility]) [id number] Panic disorder Panic Disorder Problem 09/10/2019 12:00:00 AM EDT - 12/29/2019 12:00:00 AM EST [place] ([facility]) [id number] Procedure by method Procedure by Method Problem 0 09/10/2019 12:00:00 AM EDT - 12/11/2019 12:00:00 AM EST [place] ([facility]) [id number] Panic disorder Panic Disorder Problem 09/10/2019 12:00:00 AM EDT - 12/29/2019 12:00:00 AM EST [place] ([facility]) [id number] Procedure by method Procedure by Method Problem 0 09/10/2019 12:00:00 AM EDT - 12/11/2019 12:00:00 AM EST [place] ([facility]) [id number] Adjustment disorder with mixed anxiety a nd depressed mood Adjustment Disorder with Mixed Anxiety and Depressed Mood Problem 020 12:00:00 AM EDT - 06/22/2020 12:00:00 AM EDT [place] ([facility]) [id number] Panic disorder Panic Disorder Problem 09/10/2019 12:00:00 AM EDT - 12/29/2019 12:00:00 AM EST [place] ([facility]) [id number] Procedure by method Procedure by Method Problem 0 09/10/2019 12:00:00 AM EDT - 12/11/2019 12:00:00 AM EST [place] ([facility]) [id number] Adjustment disorder with mixed anxiety a nd depressed mood Adjustment Disorder with Mixed Anxiety and Depressed Mood Problem 020 12:00:00 AM EDT - 06/22/2020 12:00:00 AM EDT [place] ([facility]) [id number] Panic disorder Panic Disorder Problem 09/10/2019 12:00:00 AM EDT - 12/29/2019 12:00:00 AM EST [place] ([facility]) [id number] Procedure by method Procedure by Method Problem 0 09/10/2019 12:00:00 AM EDT - 12/11/2019 12:00:00 AM EST [facility] ([facility]) [id number] Panic disorder Panic Disorder Problem 09/10/2019 12:00:00 AM EDT - 12/29/2019 12:00:00 AM EST [facility] ([facility]) [id number] Procedure by method Procedure by Method Problem 0 09/10/2019 12:00:00 AM EDT - 12/11/2019 12:00:00 AM EST [place] ([facility]) [id number] Panic disorder Panic Disorder Problem 09/10/2019 12:00:00 AM EDT - 12/29/2019 12:00:00 AM EST [place] ([facility]) [id number] Procedure by method Procedure by Method Problem 0 09/10/2019 12:00:00 AM EDT - 12/11/2019 12:00:00 AM EST [place] ([facility]) [id number] Procedure by method Procedure by Method Problem 0 09/10/2019 12:00:00 AM EDT - 12/11/2019 12:00:00 AM EST [place] ([facility]) [id number] Procedure by method Procedure by Method Problem 0 09/10/2019 12:00:00 AM EDT - 12/11/2019 12:00:00 AM EST [place] ([facility]) [id number] Procedure by method Procedure by Method Problem 0 09/10/2019 12:00:00 AM EDT - 12/11/2019 12:00:00 AM EST [place] ([facility]) [id number] Procedure by method Procedure by Method Problem 0 09/10/2019 12:00:00 AM EDT - 12/11/2019 12:00:00 AM EST [place] ([facility]) [id number] Panic disorder Panic Disorder Problem 09/10/2019 12:00:00 AM EDT - 12/29/2019 12:00:00 AM EST [place] ([facility]) [id number] Procedure by method Procedure by Method Problem 0 09/10/2019 12:00:00 AM EDT - 12/11/2019 12:00:00 AM EST [place] ([facility]) [id number] Panic disorder Panic Disorder Problem 09/10/2019 12:00:00 AM EDT - 12/29/2019 12:00:00 AM EST [place] ([facility]) [id number] Procedure by method Procedure by Method Problem 0 09/10/2019 12:00:00 AM EDT - 12/11/2019 12:00:00 AM EST [place] ([facility]) [id number] Panic disorder Panic Disorder Problem 09/10/2019 12:00:00 AM EDT - 12/29/2019 12:00:00 AM EST [place] ([facility]) [id number] Procedure by method Procedure by Method Problem 0 09/10/2019 12:00:00 AM EDT - 12/11/2019 12:00:00 AM EST [place] ([facility]) [id number] Panic disorder Panic Disorder Problem 09/10/2019 12:00:00 AM EDT - 12/29/2019 12:00:00 AM EST [place] ([facility]) [id number] Procedure by method Procedure by Method Problem 0 09/10/2019 12:00:00 AM EDT - 12/11/2019 12:00:00 AM EST [place] ([facility]) [id number] Panic disorder Panic Disorder Problem 09/10/2019 12:00:00 AM EDT - 12/29/2019 12:00:00 AM EST [place] ([facility]) [id number] Procedure by method Procedure by Method Problem 0 09/10/2019 12:00:00 AM EDT - 12/11/2019 12:00:00 AM EST [place] ([facility]) [id number] Panic disorder Panic Disorder Problem 09/10/2019 12:00:00 AM EDT - 12/29/2019 12:00:00 AM EST [place] ([facility]) [id number] Procedure by method Procedure by Method Problem 0 09/10/2019 12:00:00 AM EDT - 12/11/2019 12:00:00 AM EST [place] ([facility]) [id number] Panic disorder Panic Disorder Problem 09/10/2019 12:00:00 AM EDT - 12/29/2019 12:00:00 AM EST [place] ([facility]) [id number] Procedure by method Procedure by Method Problem 0 09/10/2019 12:00:00 AM EDT - 12/11/2019 12:00:00 AM EST [place] ([facility]) Surgeries/Procedures Procedure Description Date Indications Data Source(s) XTRNL ECG < 48 HR RECORDING 01/12/2020 12:00:00 AM EST [facility] ([facility]) XTRNL ECG CONTINUOUS RHYTHM PHYS REVIEW&INTERPJ 2019 12:00:00 AM EST [facility] ([facility]) CV STRS TST XERS&/OR RX CONT ECG PHYS SI&R 01/08/2020 12:00:00 AM EST [facility] ([facility]) ECHO TTHRC R-T 2D W/WOM-MODE COMPL SPEC&COLR DOP 01/07 12:00:00 AM EST [facility] ([facility]) ECG ROUTINE ECG W/LEAST 12 LDS W/I&R 01/07/2020 12:00: 00 AM EST [facility] ([facility]) Results ID Date Data Source [id number] 04/29/2020 04:04:00 PM EDT [place] ([facility]) Name Value Range Interpretation Code Description Data Ellie rce(s) Supporting Document(s) istat HCT 45.0 % 38.0-51.0 Istat HCT [place] ([facility]) istat glucose 94 mg/dL 70-105 Istat Glucose [place] ( [facility]) istat sodium 139 mEq/L 136-145 Istat Sodium [place] ([facility]) istat chloride 99 mEq/L 98-109 Istat Chloride [place] ([facility]) istat potassium 4.0 mEq/L 3.5-5.1 Istat Potassium AT[facility] NA ([facility]) istat Ca++ 5.1 mg/dL 4.5-5.3 Istat Ca++ [place] ([facility]) istat creatinine 1.1 mg/dL 0.6-1.3 Istat Creatinine AT [place] ([facility]) istat BUN 19 mg/dL 8-26 Istat BUN [place] ([facility]) istat CO2 29.0 mm/L 23.0-27.0 Above high normal Istat CO2 [place] ([facility]) ID Date Data Source [id number] 04/29/2020 04:04:00 PM EDT [place] ([facility]) Name Value Range Interpretation Code Description Data Ellie rce(s) Supporting Document(s) istat glucose 94 mg/dL 70-105 Istat Glucose [place] ( [facility]) istat HCT 45.0 % 38.0-51.0 Istat HCT [place] ([facility]) istat Ca++ 5.1 mg/dL 4.5-5.3 Istat Ca++ [place] ([facility]) istat chloride 99 mEq/L 98-109 Istat Chloride [place] ([facility]) istat sodium 139 mEq/L 136-145 Istat Sodium [place] ([facility]) istat potassium 4.0 mEq/L 3.5-5.1 Istat Potassium ATHE NA ([facility]) istat BUN 19 mg/dL 8-26 Istat BUN [place] ([facility]) istat CO2 29.0 mm/L 23.0-27.0 Above high normal Istat CO2 [place] ([facility]) istat creatinine 1.1 mg/dL 0.6-1.3 Istat Creatinine AT [place] ([facility]) ID Date Data Source [id number] 04/29/2020 04:04:00 PM EDT [place] ([facility]) Name Value Range Interpretation Code Description Data Ellie rce(s) Supporting Document(s) istat HCT 45.0 % 38.0-51.0 Istat HCT [place] ([facility]) istat glucose 94 mg/dL 70-105 Istat Glucose [place] ( [facility]) istat Ca++ 5.1 mg/dL 4.5-5.3 Istat Ca++ [place] ([facility]) istat sodium 139 mEq/L 136-145 Istat Sodium [place] ([facility]) istat potassium 4.0 mEq/L 3.5-5.1 Istat Potassium ATHE NA ([facility]) istat BUN 19 mg/dL 8-26 Istat BUN [place] ([facility]) istat chloride 99 mEq/L 98-109 Istat Chloride [place] ([facility]) istat CO2 29.0 mm/L 23.0-27.0 Above high normal Istat CO2 [place] ([facility]) istat creatinine 1.1 mg/dL 0.6-1.3 Istat Creatinine AT [facility]) ID Date Data Source [id number] 04/29/2020 04:04:00 PM EDT [place] ([facility]) Name Value Range Interpretation Code Description Data Ellie rce(s) Supporting Document(s) istat HCT 45.0 % 38.0-51.0 Istat HCT [place] ([facility]) istat glucose 94 mg/dL 70-105 Istat Glucose [place] ( [facility]) istat sodium 139 mEq/L 136-145 Istat Sodium [place] ([facility]) istat potassium 4.0 mEq/L 3.5-5.1 Istat Potassium ATHE NA ([facility]) istat Ca++ 5.1 mg/dL 4.5-5.3 Istat Ca++ [place] ([facility]) istat CO2 29.0 mm/L 23.0-27.0 Above high normal Istat CO2 [place] ([facility]) istat chloride 99 mEq/L 98-109 Istat Chloride [place] ([facility]) istat BUN 19 mg/dL 8-26 Istat BUN [place] ([facility]) istat creatinine 1.1 mg/dL 0.6-1.3 Istat Creatinine AT [facility]) ID Date Data Source [id number] 04/29/2020 04:04:00 PM EDT [facility]) Name Value Range Interpretation Code Description Data Ellie rce(s) Supporting Document(s) istat HCT 45.0 % 38.0-51.0 Istat HCT [place] ([facility]) istat potassium 4.0 mEq/L 3.5-5.1 Istat Potassium ATH NA ([facility]) istat glucose 94 mg/dL 70-105 Istat Glucose [place] ( [facility]) istat sodium 139 mEq/L 136-145 Istat Sodium [place] ([facility]) istat CO2 29.0 mm/L 23.0-27.0 Above high normal Istat CO2 [place] ([facility]) istat chloride 99 mEq/L 98-109 Istat Chloride [place] ([facility]) istat Ca++ 5.1 mg/dL 4.5-5.3 Istat Ca++ [place] ([facility]) istat creatinine 1.1 mg/dL 0.6-1.3 Istat Creatinine AT [facility] ([facility]) istat BUN 19 mg/dL 8-26 Istat BUN [place] ([facility]) ID Date Data Source [id number] 04/29/2020 04:04:00 PM EDT [place] ([facility]) Name Value Range Interpretation Code Description Data Ellie rce(s) Supporting Document(s) istat HCT 45.0 % 38.0-51.0 Istat HCT [place] ([facility]) istat potassium 4.0 mEq/L 3.5-5.1 Istat Potassium AT[place] NA ([facility]) istat glucose 94 mg/dL 70-105 Istat Glucose [place] ( [facility]) istat sodium 139 mEq/L 136-145 Istat Sodium [place] ([facility]) istat CO2 29.0 mm/L 23.0-27.0 Above high normal Istat CO2 [place] ([facility]) istat Ca++ 5.1 mg/dL 4.5-5.3 Istat Ca++ [place] ([facility]) istat chloride 99 mEq/L 98-109 Istat Chloride [place] ([facility]) istat creatinine 1.1 mg/dL 0.6-1.3 Istat Creatinine AT [facility] ([facility]) istat BUN 19 mg/dL 8-26 Istat BUN [place] ([facility]) ID Date Data Source [id number] 04/29/2020 04:04:00 PM EDT [place] ([facility]) Name Value Range Interpretation Code Description Data Ellie rce(s) Supporting Document(s) istat HCT 45.0 % 38.0-51.0 Istat HCT [place] ([facility]) istat Ca++ 5.1 mg/dL 4.5-5.3 Istat Ca++ [place] ([facility]) istat glucose 94 mg/dL 70-105 Istat Glucose [place] ( [facility]) istat sodium 139 mEq/L 136-145 Istat Sodium [place] ([facility]) istat potassium 4.0 mEq/L 3.5-5.1 Istat Potassium ATHE NA ([facility]) istat chloride 99 mEq/L 98-109 Istat Chloride [place] ([facility]) istat BUN 19 mg/dL 8-26 Istat BUN [place] ([facility]) istat CO2 29.0 mm/L 23.0-27.0 Above high normal Istat CO2 [place] ([facility]) istat creatinine 1.1 mg/dL 0.6-1.3 Istat Creatinine AT [facility]) ID Date Data Source [id number] 04/29/2020 04:04:00 PM EDT [place] ([facility]) Name Value Range Interpretation Code Description Data Ellie rce(s) Supporting Document(s) istat HCT 45.0 % 38.0-51.0 Istat HCT [place] ([facility]) istat glucose 94 mg/dL 70-105 Istat Glucose [place] ( [facility]) istat sodium 139 mEq/L 136-145 Istat Sodium [place] ([facility]) istat potassium 4.0 mEq/L 3.5-5.1 Istat Potassium AT[facility] NA ([facility]) istat Ca++ 5.1 mg/dL 4.5-5.3 Istat Ca++ [place] ([facility]) istat CO2 29.0 mm/L 23.0-27.0 Above high normal Istat CO2 [place] ([facility]) istat chloride 99 mEq/L 98-109 Istat Chloride [place] ([facility]) istat BUN 19 mg/dL 8-26 Istat BUN [place] ([facility]) istat creatinine 1.1 mg/dL 0.6-1.3 Istat Creatinine AT [facility] ([facility]) ID Date Data Source [id number] 04/29/2020 04:04:00 PM EDT [place] ([facility]) Name Value Range Interpretation Code Description Data Ellie rce(s) Supporting Document(s) istat HCT 45.0 % 38.0-51.0 Istat HCT [place] ([facility]) istat sodium 139 mEq/L 136-145 Istat Sodium [place] ([facility]) istat glucose 94 mg/dL 70-105 Istat Glucose [place] ( [facility]) istat potassium 4.0 mEq/L 3.5-5.1 Istat Potassium ATHE NA ([facility]) istat Ca++ 5.1 mg/dL 4.5-5.3 Istat Ca++ [place] ([facility]) istat CO2 29.0 mm/L 23.0-27.0 Above high normal Istat CO2 [place] ([facility]) istat chloride 99 mEq/L 98-109 Istat Chloride [place] ([facility]) istat creatinine 1.1 mg/dL 0.6-1.3 Istat Creatinine AT [facility] ([facility]) istat BUN 19 mg/dL 8-26 Istat BUN [place] ([facility]) ID Date Data Source [id number] 04/29/2020 03:56:00 PM EDT [facility]) Name Value Range Interpretation Code Description Data Ellie rce(s) Supporting Document(s) glucose, fasting 97 mg/dL 70-100 Glucose, Fasting AT [facility]) glomerular filtration rate > 60.0 >60 Glomerula r Filtration Rate [place] ([facility]) blood urea nitrogen 19 mg/dL 7-18 Above high normal Blood Ure a Nitrogen [place] ([facility]) sodium level 137 mEq/L 136-145 Sodium Level [place] ([facility]) creatinine for GFR 1.12 mg/dL 0.70-1.30 Creatinine for GF R [place] ([facility]) chloride level 103 mEq/L 98-107 Chloride Level [place] ([facility]) carbon dioxide level 31 mEq/L 21-32 Carbon Dioxide Level [place] ([facility]) potassium serum 4.1 mEq/L 3.5-5.1 Potassium Serum [place] ([facility]) anion gap 3 mEq/L 8-16 Below low normal Anion Gap [place] ( [facility]) calcium level 9.3 mg/dL 8.5-10.1 Calcium Level [facility]) ID Date Data Source [id number] 04/29/2020 03:56:00 PM EDT [facility]) Name Value Range Interpretation Code Description Data Ellie rce(s) Supporting Document(s) ALT/SGPT 25 U/L 12-78 ALT/SGPT [place] ([facility]) AST/SGOT 13 U/L 7-37 AST/SGOT [place] ([facility]) bilirubin,total 0.5 mg/dL 0.2-1.0 Bilirubin,total [place] ([facility]) bilirubin,direct 0.2 mg/dL 0.0-0.2 Bilirubin,direct AT [facility] ([facility]) total protein 7.0 gm/dL 6.4-8.2 Total Protein [place] ( [facility]) alkaline phosphatase 76 U/L 45-117 Alkaline Phosph atase [place] ([facility]) albumin 4.0 gm/dL 3.2-5.2 Albumin HILDA ([facility]) albumin/globulin ratio Albumin/globu wu Ratio HILDA ([facility]) ID Date Data Source [id number] 04/29/2020 03:56:00 PM EDT [place] ([facility]) Name Value Range Interpretation Code Description Data Ellie rce(s) Supporting Document(s) CK-mb value mass 1.1 NG/mL <3.6 CK-mb Value Mass AT [facility] ([facility]) CPK creatine phosphokinase 142 U/L 39-308 CPK Creat ine Phosphokinase HILDA ([facility]) troponin I < 0.02 < 0.10 Troponin I HILDA ([facility]) mb/CK relative index < or =4 mb/CK Relative Index HILDA ([facility]) ID Date Data Source [id number] 04/29/2020 03:56:00 PM EDT [place] ([facility]) Name Value Range Interpretation Code Description Data Ellie rce(s) Supporting Document(s) partial thromboplastin time 30.8 seconds 24.2-38.5 [facility] ID Date Data Source [id number] 04/29/2020 03:56:00 PM EDT [place] ([facility]) Name Value Range Interpretation Code Description Data Ellie rce(s) Supporting Document(s) prothrombin time 13.2 seconds 12.5-14.3 Prothrombin Time [facility]DA ([facility]) INR Inr HILDA ([facility]) ID Date Data Source [id number] 04/29/2020 03:56:00 PM EDT [place] ([facility]) Name Value Range Interpretation Code Description Data Ellie rce(s) Supporting Document(s) white blood count 6.3 10 4.0-10.0 White Blood Count HILDA ([facility]) red blood count 5.45 10 4.30-6.10 Red Blood Count [place] ([facility]) hematocrit 45.6 % 42.0-52.0 Hematocrit HILDA ([facility]) hemoglobin 15.1 g/dL 13.5-17.5 Hemoglobin HILDA ([facility]) mean corpuscular volume 83.7 fL 80.0-96.0 Mean Corpusc ular Volume HILDA ([facility]) mean corpuscular hemoglobin 27.7 pg 27.0-33.0 Mean Cor puscular Hemoglobin [facility]DA ([facility]) red cell distribution width 13.5 % 11.5-14.5 Red Cell Distribution Width [facility] ([facility]) mean corpuscular HGB conc 33.1 g/dL 32.0-36.5 Mean Corpu scular HGB Conc HILDA ([facility]) platelet count, automated 230 10 150-450 Platelet C ount, Automated [facility] ([facility]) mono % 9.6 % 2.0-8.0 Above high normal [place] % [facility] ([facility]) neutrophils % 53.2 % 36.0-66.0 Neutrophils % [facility] ( [facility]) lymph % 33.6 % 24.0-44.0 Lymph % [facility]DA ([facility]) immature granulocyte % 0.3 % 0-3.0 Immature Gran ulocyte % [facility] ([facility]) eos % 2.7 % 0.0-3.0 Eos % [facility] ([facility]) baso % 0.6 % 0.0-1.0 Baso % [facility] ([facility]) lymph # 2.1 10 1.5-5.0 Lymph # [facility]DA ([facility]) neutrophils # 3.4 10 1.5-8.5 Neutrophils # [facility] ( [facility]) nucleated red blood cell % 0.0 % 0-0 Nucleated Red Blood Cell % [facility] ([facility]) mono # 0.6 10 0.0-0.8 [place] # HILDA ([facility]) eos # 0.2 10 0.0-0.5 Eos # [facility]DA ([facility]) baso # 0.0 10 0.0-0.2 Baso # [facility]DA ([facility]) ID Date Data Source [id number] 04/29/2020 03:56:00 PM EDT [place] ([facility]) Name Value Range Interpretation Code Description Data Ellie rce(s) Supporting Document(s) creatinine for GFR 1.12 mg/dL 0.70-1.30 Creatinine for GF R [place] ([facility]) glucose, fasting 97 mg/dL 70-100 Glucose, Fasting AT [facility]) blood urea nitrogen 19 mg/dL 7-18 Above high normal Blood Ure a Nitrogen HILDA ([facility]) glomerular filtration rate > 60.0 >60 Glomerula r Filtration Rate HILDA ([facility]) carbon dioxide level 31 mEq/L 21-32 Carbon Dioxide Level [facility] ([facility]) chloride level 103 mEq/L 98-107 Chloride Level [place] ([facility]) anion gap 3 mEq/L 8-16 Below low normal Anion Gap [facility] ( [facility]) potassium serum 4.1 mEq/L 3.5-5.1 Potassium Serum ATHE NA ([facility]) sodium level 137 mEq/L 136-145 Sodium Level [facility] ([facility]) calcium level 9.3 mg/dL 8.5-10.1 Calcium Level [facility] ( [facility]) ID Date Data Source [id number] 04/29/2020 03:56:00 PM EDT [place] ([facility]) Name Value Range Interpretation Code Description Data Ellie rce(s) Supporting Document(s) ALT/SGPT 25 U/L 12-78 ALT/SGPT [facility] ([facility]) alkaline phosphatase 76 U/L 45-117 Alkaline Phosph atase H[facility] ([facility]) AST/SGOT 13 U/L 7-37 AST/SGOT [facility] ([facility]) bilirubin,total 0.5 mg/dL 0.2-1.0 Bilirubin,total [facility] ([facility]) bilirubin,direct 0.2 mg/dL 0.0-0.2 Bilirubin,direct AT [facility] ([facility]) albumin/globulin ratio Albumin/globu wu Ratio H[facility]DA ([facility]) albumin 4.0 gm/dL 3.2-5.2 Albumin [facility] ([facility]) total protein 7.0 gm/dL 6.4-8.2 Total Protein [facility] ( [facility]) ID Date Data Source [id number] 04/29/2020 03:56:00 PM EDT [place] ([facility]) Name Value Range Interpretation Code Description Data Ellie rce(s) Supporting Document(s) CK-mb value mass 1.1 NG/mL <3.6 CK-mb Value Mass AT [facility] ([facility]) CPK creatine phosphokinase 142 U/L 39-308 CPK Creat ine Phosphokinase [facility] ([facility]) mb/CK relative index < or =4 mb/CK Relative Index [facility]DA ([facility]) troponin I < 0.02 < 0.10 Troponin I [facility] ([facility]) ID Date Data Source [id number] 04/29/2020 03:56:00 PM EDT [place] ([facility]) Name Value Range Interpretation Code Description Data Ellie rce(s) Supporting Document(s) partial thromboplastin time 30.8 seconds 24.2-38.5 Partial Thromboplastin Time [facility] ([facility]) ID Date Data Source [id number] 04/29/2020 03:56:00 PM EDT [place] ([facility]) Name Value Range Interpretation Code Description Data Ellie rce(s) Supporting Document(s) prothrombin time 13.2 seconds 12.5-14.3 Prothrombin Time [facility] ([facility]) INR Inr [facility]DA ([facility]) ID Date Data Source [id number] 04/29/2020 03:56:00 PM EDT [place] ([facility]) Name Value Range Interpretation Code Description Data Ellie rce(s) Supporting Document(s) white blood count 6.3 10 4.0-10.0 White Blood Count [facility] ([facility]) hematocrit 45.6 % 42.0-52.0 Hematocrit H[facility]DA ([facility]) red blood count 5.45 10 4.30-6.10 Red Blood Count [facility] ([facility]) hemoglobin 15.1 g/dL 13.5-17.5 Hemoglobin HILDA ([facility]) mean corpuscular volume 83.7 fL 80.0-96.0 Mean Corpusc ular Volume HILDA ([facility]) mean corpuscular HGB conc 33.1 g/dL 32.0-36.5 Mean Corpu scular HGB Conc HILDA ([facility]) mean corpuscular hemoglobin 27.7 pg 27.0-33.0 Mean Cor puscular Hemoglobin HILDA ([facility]) red cell distribution width 13.5 % 11.5-14.5 Red Cell Distribution Width [facility] ([facility]) platelet count, automated 230 10 150-450 Platelet C ount, Automated [place] ([facility]) neutrophils % 53.2 % 36.0-66.0 Neutrophils % [place] ( [facility]) mono % 9.6 % 2.0-8.0 Above high normal [place] % [facility] ([facility]) baso % 0.6 % 0.0-1.0 Baso % HILDA ([facility]) eos % 2.7 % 0.0-3.0 Eos % [facility] ([facility]) lymph % 33.6 % 24.0-44.0 Lymph % [facility]DA ([facility]) neutrophils # 3.4 10 1.5-8.5 Neutrophils # [facility]DA ( [facility]) nucleated red blood cell % 0.0 % 0-0 Nucleated Red Blood Cell % [facility] ([facility]) immature granulocyte % 0.3 % 0-3.0 Immature Gran ulocyte % [place] ([facility]) lymph # 2.1 10 1.5-5.0 Lymph # [place] ([facility]) baso # 0.0 10 0.0-0.2 Baso # [facility] ([facility]) mono # 0.6 10 0.0-0.8 [place] # [facility]DA ([facility]) eos # 0.2 10 0.0-0.5 Eos # [facility] ([facility]) ID Date Data Source [id number] 04/29/2020 03:56:00 PM EDT [place] ([facility]) Name Value Range Interpretation Code Description Data Ellie rce(s) Supporting Document(s) glomerular filtration rate > 60.0 >60 Glomerula r Filtration Rate [place] ([facility]) creatinine for GFR 1.12 mg/dL 0.70-1.30 Creatinine for GF R [place] ([facility]) glucose, fasting 97 mg/dL 70-100 Glucose, Fasting AT [facility]) blood urea nitrogen 19 mg/dL 7-18 Above high normal Blood Ure a Nitrogen [facility] ([facility]) sodium level 137 mEq/L 136-145 Sodium Level [facility] ([facility]) carbon dioxide level 31 mEq/L 21-32 Carbon Dioxide Level [place] ([facility]) anion gap 3 mEq/L 8-16 Below low normal Anion Gap [place] ( [facility]) potassium serum 4.1 mEq/L 3.5-5.1 Potassium Serum ATHE NA ([facility]) chloride level 103 mEq/L 98-107 Chloride Level [facility] ([facility]) calcium level 9.3 mg/dL 8.5-10.1 Calcium Level [facility] ( [facility]) ID Date Data Source [id number] 04/29/2020 03:56:00 PM EDT [place] ([facility]) Name Value Range Interpretation Code Description Data Ellie rce(s) Supporting Document(s) AST/SGOT 13 U/L 7-37 AST/SGOT H[facility]DA ([facility]) ALT/SGPT 25 U/L 12-78 ALT/SGPT [facility]DA ([facility]) total protein 7.0 gm/dL 6.4-8.2 Total Protein HILDA ( [facility]) bilirubin,total 0.5 mg/dL 0.2-1.0 Bilirubin,total [facility] ([facility]) bilirubin,direct 0.2 mg/dL 0.0-0.2 Bilirubin,direct AT [facility] ([facility]) alkaline phosphatase 76 U/L 45-117 Alkaline Phosph atase [facility]DA ([facility]) albumin 4.0 gm/dL 3.2-5.2 Albumin HILDA ([facility]) albumin/globulin ratio Albumin/globu wu Ratio [facility]DA ([facility]) ID Date Data Source [id number] 04/29/2020 03:56:00 PM EDT [place] ([facility]) Name Value Range Interpretation Code Description Data Ellie rce(s) Supporting Document(s) CK-mb value mass 1.1 NG/mL <3.6 CK-mb Value Mass AT [facility] ([facility]) CPK creatine phosphokinase 142 U/L 39-308 CPK Creat ine Phosphokinase [facility] ([facility]) troponin I < 0.02 < 0.10 Troponin I [place] ([facility]) mb/CK relative index < or =4 mb/CK Relative Index [facility]DA ([facility]) ID Date Data Source [id number] 04/29/2020 03:56:00 PM EDT [place] ([facility]) Name Value Range Interpretation Code Description Data Ellie rce(s) Supporting Document(s) partial thromboplastin time 30.8 seconds 24.2-38.5 Partial Thromboplastin Time [facility] ([facility]) ID Date Data Source [id number] 04/29/2020 03:56:00 PM EDT [place] ([facility]) Name Value Range Interpretation Code Description Data Ellie rce(s) Supporting Document(s) INR Inr HILDA ([facility]) prothrombin time 13.2 seconds 12.5-14.3 Prothrombin Time [facility] ([facility]) ID Date Data Source [id number] 04/29/2020 03:56:00 PM EDT [place] ([facility]) Name Value Range Interpretation Code Description Data Ellie rce(s) Supporting Document(s) red blood count 5.45 10 4.30-6.10 Red Blood Count [facility] ([facility]) white blood count 6.3 10 4.0-10.0 White Blood Count [facility] ([facility]) hemoglobin 15.1 g/dL 13.5-17.5 Hemoglobin [facility] ([facility]) hematocrit 45.6 % 42.0-52.0 Hematocrit [facility] ([facility]) mean corpuscular volume 83.7 fL 80.0-96.0 Mean Corpusc ular Volume [facility] ([facility]) platelet count, automated 230 10 150-450 Platelet C ount, Automated [place] ([facility]) red cell distribution width 13.5 % 11.5-14.5 Red Cell Distribution Width [facility] ([facility]) mean corpuscular hemoglobin 27.7 pg 27.0-33.0 Mean Cor puscular Hemoglobin [facility]DA ([facility]) mean corpuscular HGB conc 33.1 g/dL 32.0-36.5 Mean Corpu scular HGB Conc [facility] ([facility]) neutrophils % 53.2 % 36.0-66.0 Neutrophils % [place] ( [facility]) lymph % 33.6 % 24.0-44.0 Lymph % [facility] ([facility]) mono % 9.6 % 2.0-8.0 Above high normal [place] % [facility] ([facility]) eos % 2.7 % 0.0-3.0 Eos % [facility] ([facility]) baso % 0.6 % 0.0-1.0 Baso % [place] ([facility]) immature granulocyte % 0.3 % 0-3.0 Immature Gran ulocyte % [place] ([facility]) neutrophils # 3.4 10 1.5-8.5 Neutrophils # [place] ( [facility]) nucleated red blood cell % 0.0 % 0-0 Nucleated Red Blood Cell % [facility] ([facility]) mono # 0.6 10 0.0-0.8 [place] # [facility] ([facility]) baso # 0.0 10 0.0-0.2 Baso # [facility] ([facility]) lymph # 2.1 10 1.5-5.0 Lymph # [facility] ([facility]) eos # 0.2 10 0.0-0.5 Eos # [facility] ([facility]) ID Date Data Source [id number] 04/29/2020 03:56:00 PM EDT [place] ([facility]) Name Value Range Interpretation Code Description Data Ellie rce(s) Supporting Document(s) CPK creatine phosphokinase 142 U/L 39-308 CPK Creat ine Phosphokinase [facility] ([facility]) mb/CK relative index < or =4 mb/CK Relative Index [facility]DA ([facility]) CK-mb value mass 1.1 NG/mL <3.6 CK-mb Value Mass AT [facility]) troponin I < 0.02 < 0.10 Troponin I [facility]DA ([facility]) ID Date Data Source [id number] 04/29/2020 03:56:00 PM EDT [place] ([facility]) Name Value Range Interpretation Code Description Data Ellie rce(s) Supporting Document(s) partial thromboplastin time 30.8 seconds 24.2-38.5 Partial Thromboplastin Time [facility] ([facility]) ID Date Data Source [id number] 04/29/2020 03:56:00 PM EDT [place] ([facility]) Name Value Range Interpretation Code Description Data Ellie rce(s) Supporting Document(s) prothrombin time 13.2 seconds 12.5-14.3 Prothrombin Time [facility] ([facility]) INR Inr [facility]DA ([facility]) ID Date Data Source [id number] 04/29/2020 03:56:00 PM EDT [place] ([facility]) Name Value Range Interpretation Code Description Data Ellie rce(s) Supporting Document(s) white blood count 6.3 10 4.0-10.0 White Blood Count [facility] ([facility]) red blood count 5.45 10 4.30-6.10 Red Blood Count AT[facility] ([facility]) hemoglobin 15.1 g/dL 13.5-17.5 Hemoglobin [facility] ([facility]) mean corpuscular volume 83.7 fL 80.0-96.0 Mean Corpusc ular Volume [facility]DA ([facility]) mean corpuscular hemoglobin 27.7 pg 27.0-33.0 Mean Cor puscular Hemoglobin [facility]DA ([facility]) hematocrit 45.6 % 42.0-52.0 Hematocrit [facility] ([facility]) red cell distribution width 13.5 % 11.5-14.5 Red Cell Distribution Width [facility] ([facility]) mean corpuscular HGB conc 33.1 g/dL 32.0-36.5 Mean Corpu scular HGB Conc [facility] ([facility]) platelet count, automated 230 10 150-450 Platelet C ount, Automated [place] ([facility]) mono % 9.6 % 2.0-8.0 Above high normal [place] % [facility] ([facility]) lymph % 33.6 % 24.0-44.0 Lymph % [place] ([facility]) neutrophils % 53.2 % 36.0-66.0 Neutrophils % [place] ( [facility]) eos % 2.7 % 0.0-3.0 Eos % [place] ([facility]) baso % 0.6 % 0.0-1.0 Baso % [place] ([facility]) immature granulocyte % 0.3 % 0-3.0 Immature Gran ulocyte % [place] ([facility]) nucleated red blood cell % 0.0 % 0-0 Nucleated Red Blood Cell % [place] ([facility]) neutrophils # 3.4 10 1.5-8.5 Neutrophils # [place] ( [facility]) lymph # 2.1 10 1.5-5.0 Lymph # [place] ([facility]) mono # 0.6 10 0.0-0.8 [place] # [place] ([facility]) eos # 0.2 10 0.0-0.5 Eos # [place] ([facility]) baso # 0.0 10 0.0-0.2 Baso # [place] ([facility]) ID Date Data Source [id number] 04/29/2020 03:56:00 PM EDT [place] ([facility]) Name Value Range Interpretation Code Description Data Ellie rce(s) Supporting Document(s) blood urea nitrogen 19 mg/dL 7-18 Above high normal Blood Ure a Nitrogen [place] ([facility]) creatinine for GFR 1.12 mg/dL 0.70-1.30 Creatinine for GF R [place] ([facility]) glucose, fasting 97 mg/dL 70-100 Glucose, Fasting AT [facility]) chloride level 103 mEq/L 98-107 Chloride Level [place] ([facility]) sodium level 137 mEq/L 136-145 Sodium Level HILDA ([facility]) potassium serum 4.1 mEq/L 3.5-5.1 Potassium Serum ATHE NA ([facility]) carbon dioxide level 31 mEq/L 21-32 Carbon Dioxide Level [place] ([facility]) glomerular filtration rate > 60.0 >60 Glomerula r Filtration Rate [place] ([facility]) calcium level 9.3 mg/dL 8.5-10.1 Calcium Level [place] ( [facility]) anion gap 3 mEq/L 8-16 Below low normal Anion Gap [facility] ( [facility]) ID Date Data Source [id number] 04/29/2020 03:56:00 PM EDT [place] ([facility]) Name Value Range Interpretation Code Description Data Ellie rce(s) Supporting Document(s) AST/SGOT 13 U/L 7-37 AST/SGOT [facility] ([facility]) bilirubin,direct 0.2 mg/dL 0.0-0.2 Bilirubin,direct AT [facility]) ALT/SGPT 25 U/L 12-78 ALT/SGPT [place] ([facility]) bilirubin,total 0.5 mg/dL 0.2-1.0 Bilirubin,total AT[facility] ([facility]) alkaline phosphatase 76 U/L 45-117 Alkaline Phosph atase [facility] ([facility]) albumin/globulin ratio Albumin/globu wu Ratio [facility] ([facility]) albumin 4.0 gm/dL 3.2-5.2 Albumin [facility] ([facility]) total protein 7.0 gm/dL 6.4-8.2 Total Protein [facility] ( [facility]) ID Date Data Source [id number] 04/29/2020 03:56:00 PM [facility] Name Value Range Interpretation Code Description Data Ellie rce(s) Supporting Document(s) mb/CK relative index < or =4 mb/CK Relative Index [facility] ([facility]) CPK creatine phosphokinase 142 U/L 39-308 CPK Creat ine Phosphokinase [facility] ([facility]) CK-mb value mass 1.1 NG/mL <3.6 CK-mb Value Mass AT [place] ([facility]) troponin I < 0.02 < 0.10 Troponin I [place] ([facility]) ID Date Data Source [id number] 04/29/2020 03:56:00 PM EDT [place] ([facility]) Name Value Range Interpretation Code Description Data Ellie rce(s) Supporting Document(s) partial thromboplastin time 30.8 seconds 24.2-38.5 Partial Thromboplastin Time [facility] ([facility]) ID Date Data Source [id number] 04/29/2020 03:56:00 PM EDT [place] ([facility]) Name Value Range Interpretation Code Description Data Ellie rce(s) Supporting Document(s) prothrombin time 13.2 seconds 12.5-14.3 Prothrombin Time [facility] ([facility]) INR Inr [facility] ([facility]) ID Date Data Source [id number] 04/29/2020 03:56:00 PM EDT [place] ([facility]) Name Value Range Interpretation Code Description Data Ellie rce(s) Supporting Document(s) white blood count 6.3 10 4.0-10.0 White Blood Count [facility] ([facility]) hemoglobin 15.1 g/dL 13.5-17.5 Hemoglobin [facility] ([facility]) red blood count 5.45 10 4.30-6.10 Red Blood Count ATHE NA ([facility]) hematocrit 45.6 % 42.0-52.0 Hematocrit [facility] ([facility]) mean corpuscular hemoglobin 27.7 pg 27.0-33.0 Mean Cor puscular Hemoglobin [facility]DA ([facility]) mean corpuscular volume 83.7 fL 80.0-96.0 Mean Corpusc ular Volume [place] ([facility]) red cell distribution width 13.5 % 11.5-14.5 Red Cell Distribution Width [place] ([facility]) platelet count, automated 230 10 150-450 Platelet C ount, Automated [place] ([facility]) mean corpuscular HGB conc 33.1 g/dL 32.0-36.5 Mean Corpu scular HGB Conc [place] ([facility]) mono % 9.6 % 2.0-8.0 Above high normal [place] % [place] ([facility]) lymph % 33.6 % 24.0-44.0 Lymph % [place] ([facility]) neutrophils % 53.2 % 36.0-66.0 Neutrophils % [place] ( [facility]) immature granulocyte % 0.3 % 0-3.0 Immature Gran ulocyte % [place] ([facility]) eos % 2.7 % 0.0-3.0 Eos % [place] ([facility]) baso % 0.6 % 0.0-1.0 Baso % [place] ([facility]) neutrophils # 3.4 10 1.5-8.5 Neutrophils # [place] ( [facility]) nucleated red blood cell % 0.0 % 0-0 Nucleated Red Blood Cell % [place] ([facility]) mono # 0.6 10 0.0-0.8 [place] # [place] ([facility]) lymph # 2.1 10 1.5-5.0 Lymph # [place] ([facility]) eos # 0.2 10 0.0-0.5 Eos # [place] ([facility]) baso # 0.0 10 0.0-0.2 Baso # [place] ([facility]) ID Date Data Source [id number] 04/29/2020 03:56:00 PM EDT [place] ([facility]) Name Value Range Interpretation Code Description Data Ellie rce(s) Supporting Document(s) glucose, fasting 97 mg/dL 70-100 Glucose, Fasting AT [facility] ([facility]) creatinine for GFR 1.12 mg/dL 0.70-1.30 Creatinine for GF R [place] ([facility]) glomerular filtration rate > 60.0 >60 Glomerula r Filtration Rate [place] ([facility]) blood urea nitrogen 19 mg/dL 7-18 Above high normal Blood Ure a Nitrogen [place] ([facility]) sodium level 137 mEq/L 136-145 Sodium Level [place] (No [facility]) chloride level 103 mEq/L 98-107 Chloride Level [place] ([facility]) potassium serum 4.1 mEq/L 3.5-5.1 Potassium Serum [place] ([facility]) calcium level 9.3 mg/dL 8.5-10.1 Calcium Level [place] ( [facility]) carbon dioxide level 31 mEq/L 21-32 Carbon Dioxide Level [place] ([facility]) anion gap 3 mEq/L 8-16 Below low normal Anion Gap [place] ( [facility]) ID Date Data Source [id number] 04/29/2020 03:56:00 PM EDT [place] ([facility]) Name Value Range Interpretation Code Description Data Ellie rce(s) Supporting Document(s) AST/SGOT 13 U/L 7-37 AST/SGOT [place] ([facility]) ALT/SGPT 25 U/L 12-78 ALT/SGPT [place] ([facility]) bilirubin,direct 0.2 mg/dL 0.0-0.2 Bilirubin,direct AT [facility]) alkaline phosphatase 76 U/L 45-117 Alkaline Phosph atase [place] ([facility]) bilirubin,total 0.5 mg/dL 0.2-1.0 Bilirubin,total [place] NA ([facility]) albumin 4.0 gm/dL 3.2-5.2 Albumin [place] ([facility]) total protein 7.0 gm/dL 6.4-8.2 Total Protein [place] ( [facility]) albumin/globulin ratio Albumin/globu wu Ratio [place] ([facility]) ID Date Data Source [id number] 04/29/2020 03:56:00 PM EDT [place] ([facility]) Name Value Range Interpretation Code Description Data Ellie rce(s) Supporting Document(s) CPK creatine phosphokinase 142 U/L 39-308 CPK Creat ine Phosphokinase [place] ([facility]) mb/CK relative index < or =4 mb/CK Relative Index [place] ([facility]) troponin I < 0.02 < 0.10 Troponin I [place] ([facility]) CK-mb value mass 1.1 NG/mL <3.6 CK-mb Value Mass AT [place] ([facility]) ID Date Data Source [id number] 04/29/2020 03:56:00 PM EDT [place] ([facility]) Name Value Range Interpretation Code Description Data Ellie rce(s) Supporting Document(s) partial thromboplastin time 30.8 seconds 24.2-38.5 Partial Thromboplastin Time [place] ([facility]) ID Date Data Source [id number] 04/29/2020 03:56:00 PM EDT [place] ([facility]) Name Value Range Interpretation Code Description Data Ellie rce(s) Supporting Document(s) INR Inr [place] ([facility]) prothrombin time 13.2 seconds 12.5-14.3 Prothrombin Time [place] ([facility]) ID Date Data Source [id number] 04/29/2020 03:56:00 PM EDT [place] ([facility]) Name Value Range Interpretation Code Description Data Ellie rce(s) Supporting Document(s) white blood count 6.3 10 4.0-10.0 White Blood Count [place] ([facility]) red blood count 5.45 10 4.30-6.10 Red Blood Count [place] ([facility]) hemoglobin 15.1 g/dL 13.5-17.5 Hemoglobin [place] ([facility]) mean corpuscular volume 83.7 fL 80.0-96.0 Mean Corpusc ular Volume [place] ([facility]) hematocrit 45.6 % 42.0-52.0 Hematocrit [place] ([facility]) mean corpuscular HGB conc 33.1 g/dL 32.0-36.5 Mean Corpu scular HGB Conc [place] ([facility]) mean corpuscular hemoglobin 27.7 pg 27.0-33.0 Mean Cor puscular Hemoglobin [place] ([facility]) red cell distribution width 13.5 % 11.5-14.5 Red Cell Distribution Width [place] ([facility]) neutrophils % 53.2 % 36.0-66.0 Neutrophils % [place] ( [facility]) lymph % 33.6 % 24.0-44.0 Lymph % [place] ([facility]) platelet count, automated 230 10 150-450 Platelet C ount, Automated [place] ([facility]) mono % 9.6 % 2.0-8.0 Above high normal [place] % [place] ([facility]) eos % 2.7 % 0.0-3.0 Eos % [place] ([facility]) baso % 0.6 % 0.0-1.0 Baso % [place] ([facility]) immature granulocyte % 0.3 % 0-3.0 Immature Gran ulocyte % [place] ([facility]) neutrophils # 3.4 10 1.5-8.5 Neutrophils # [place] ( [facility]) nucleated red blood cell % 0.0 % 0-0 Nucleated Red Blood Cell % [place] ([facility]) lymph # 2.1 10 1.5-5.0 Lymph # [place] ([facility]) baso # 0.0 10 0.0-0.2 Baso # [place] ([facility]) eos # 0.2 10 0.0-0.5 Eos # [place] ([facility]) mono # 0.6 10 0.0-0.8 [place] # [place] ([facility]) ID Date Data Source [id number] 04/29/2020 03:56:00 PM EDT [place] ([facility]) Name Value Range Interpretation Code Description Data Ellie rce(s) Supporting Document(s) creatinine for GFR 1.12 mg/dL 0.70-1.30 Creatinine for GF R [place] ([facility]) glucose, fasting 97 mg/dL 70-100 Glucose, Fasting AT [facility]) blood urea nitrogen 19 mg/dL 7-18 Above high normal Blood Ure a Nitrogen [place] ([facility]) sodium level 137 mEq/L 136-145 Sodium Level [place] ([facility]) potassium serum 4.1 mEq/L 3.5-5.1 Potassium Serum [place] ([facility]) glomerular filtration rate > 60.0 >60 Glomerula r Filtration Rate [place] ([facility]) chloride level 103 mEq/L 98-107 Chloride Level [facility]) anion gap 3 mEq/L 8-16 Below low normal Anion Gap [place] ( [facility]) calcium level 9.3 mg/dL 8.5-10.1 Calcium Level [place] ( [facility]) carbon dioxide level 31 mEq/L 21-32 Carbon Dioxide Level [place] ([facility]) ID Date Data Source [id number] 04/29/2020 03:56:00 PM EDT [facility]) Name Value Range Interpretation Code Description Data Ellie rce(s) Supporting Document(s) AST/SGOT 13 U/L 7-37 AST/SGOT [place] ([facility]) bilirubin,total 0.5 mg/dL 0.2-1.0 Bilirubin,total [place] ([facility]) alkaline phosphatase 76 U/L 45-117 Alkaline Phosph atase [place] ([facility]) ALT/SGPT 25 U/L 12-78 ALT/SGPT [place] ([facility]) total protein 7.0 gm/dL 6.4-8.2 Total Protein [place] ( [facility]) bilirubin,direct 0.2 mg/dL 0.0-0.2 Bilirubin,direct AT [facility] ([facility]) albumin/globulin ratio Albumin/globu wu Ratio [place] ([facility]) albumin 4.0 gm/dL 3.2-5.2 Albumin [place] ([facility]) ID Date Data Source [id number] 04/29/2020 03:56:00 PM EDT [place] ([facility]) Name Value Range Interpretation Code Description Data Ellie rce(s) Supporting Document(s) mb/CK relative index < or =4 mb/CK Relative Index [place] ([facility]) CK-mb value mass 1.1 NG/mL <3.6 CK-mb Value Mass AT [facility] ([facility]) CPK creatine phosphokinase 142 U/L 39-308 CPK Creat ine Phosphokinase [place] ([facility]) troponin I < 0.02 < 0.10 Troponin I [place] ([facility]) ID Date Data Source [id number] 04/29/2020 03:56:00 PM EDT [place] ([facility]) Name Value Range Interpretation Code Description Data Ellie rce(s) Supporting Document(s) partial thromboplastin time 30.8 seconds 24.2-38.5 Partial Thromboplastin Time [place] ([facility]) ID Date Data Source [id number] 04/29/2020 03:56:00 PM EDT [place] ([facility]) Name Value Range Interpretation Code Description Data Ellie rce(s) Supporting Document(s) INR Inr [place] ([facility]) prothrombin time 13.2 seconds 12.5-14.3 Prothrombin Time [place] ([facility]) ID Date Data Source [id number] 04/29/2020 03:56:00 PM EDT [place] ([facility]) Name Value Range Interpretation Code Description Data Ellie rce(s) Supporting Document(s) white blood count 6.3 10 4.0-10.0 White Blood Count [place] ([facility]) hematocrit 45.6 % 42.0-52.0 Hematocrit [place] ([facility]) hemoglobin 15.1 g/dL 13.5-17.5 Hemoglobin [place] ([facility]) red blood count 5.45 10 4.30-6.10 Red Blood Count [place] NA ([facility]) mean corpuscular HGB conc 33.1 g/dL 32.0-36.5 Mean Corpu scular HGB Conc [place] ([facility]) mean corpuscular hemoglobin 27.7 pg 27.0-33.0 Mean Cor puscular Hemoglobin [place] ([facility]) mean corpuscular volume 83.7 fL 80.0-96.0 Mean Corpusc ular Volume [place] ([facility]) lymph % 33.6 % 24.0-44.0 Lymph % [place] ([facility]) red cell distribution width 13.5 % 11.5-14.5 Red Cell Distribution Width [place] ([facility]) platelet count, automated 230 10 150-450 Platelet C ount, Automated [place] ([facility]) neutrophils % 53.2 % 36.0-66.0 Neutrophils % [place] ( [facility]) eos % 2.7 % 0.0-3.0 Eos % [place] ([facility]) baso % 0.6 % 0.0-1.0 Baso % [place] ([facility]) mono % 9.6 % 2.0-8.0 Above high normal [place] % [place] ([facility]) neutrophils # 3.4 10 1.5-8.5 Neutrophils # [place] ( [facility]) nucleated red blood cell % 0.0 % 0-0 Nucleated Red Blood Cell % [place] ([facility]) immature granulocyte % 0.3 % 0-3.0 Immature Gran ulocyte % [place] ([facility]) baso # 0.0 10 0.0-0.2 Baso # [place] ([facility]) mono # 0.6 10 0.0-0.8 [place] # [place] ([facility]) eos # 0.2 10 0.0-0.5 Eos # [place] ([facility]) lymph # 2.1 10 1.5-5.0 Lymph # [place] ([facility]) ID Date Data Source [id number] 04/29/2020 03:56:00 PM EDT [place] ([facility]) Name Value Range Interpretation Code Description Data Ellie rce(s) Supporting Document(s) glucose, fasting 97 mg/dL 70-100 Glucose, Fasting AT [facility]) glomerular filtration rate > 60.0 >60 Glomerula r Filtration Rate [place] ([facility]) sodium level 137 mEq/L 136-145 Sodium Level [place] ([facility]) creatinine for GFR 1.12 mg/dL 0.70-1.30 Creatinine for GF R [place] ([facility]) blood urea nitrogen 19 mg/dL 7-18 Above high normal Blood Ure a Nitrogen [place] ([facility]) carbon dioxide level 31 mEq/L 21-32 Carbon Dioxide Level [place] ([facility]) chloride level 103 mEq/L 98-107 Chloride Level [place] ([facility]) potassium serum 4.1 mEq/L 3.5-5.1 Potassium Serum [facility] ([facility]) anion gap 3 mEq/L 8-16 Below low normal Anion Gap [place] ( [facility]) calcium level 9.3 mg/dL 8.5-10.1 Calcium Level [place] ( [facility]) ID Date Data Source [id number] 04/29/2020 03:56:00 PM EDT [place] ([facility]) Name Value Range Interpretation Code Description Data Ellie rce(s) Supporting Document(s) AST/SGOT 13 U/L 7-37 AST/SGOT [place] ([facility]) alkaline phosphatase 76 U/L 45-117 Alkaline Phosph atase [place] ([facility]) bilirubin,direct 0.2 mg/dL 0.0-0.2 Bilirubin,direct AT [facility]) bilirubin,total 0.5 mg/dL 0.2-1.0 Bilirubin,total [place] NA ([facility]) ALT/SGPT 25 U/L 12-78 ALT/SGPT [place] ([facility]) albumin 4.0 gm/dL 3.2-5.2 Albumin [place] ([facility]) total protein 7.0 gm/dL 6.4-8.2 Total Protein [place] ( [facility]) albumin/globulin ratio Albumin/globu wu Ratio [place] ([facility]) ID Date Data Source [id number] 04/29/2020 03:56:00 PM EDT [place] ([facility]) Name Value Range Interpretation Code Description Data Ellie rce(s) Supporting Document(s) CPK creatine phosphokinase 142 U/L 39-308 CPK Creat ine Phosphokinase [place] ([facility]) mb/CK relative index < or =4 mb/CK Relative Index [place] ([facility]) troponin I < 0.02 < 0.10 Troponin I [place] ([facility]) CK-mb value mass 1.1 NG/mL <3.6 CK-mb Value Mass AT [place] ([facility]) ID Date Data Source [id number] 04/29/2020 03:56:00 PM EDT [place] ([facility]) Name Value Range Interpretation Code Description Data Ellie rce(s) Supporting Document(s) partial thromboplastin time 30.8 seconds 24.2-38.5 Partial Thromboplastin Time [place] ([facility]) ID Date Data Source [id number] 04/29/2020 03:56:00 PM EDT [place] ([facility]) Name Value Range Interpretation Code Description Data Ellie rce(s) Supporting Document(s) prothrombin time 13.2 seconds 12.5-14.3 Prothrombin Time [place] ([facility]) INR Inr [place] ([facility]) ID Date Data Source [id number] 04/29/2020 03:56:00 PM EDT [place] ([facility]) Name Value Range Interpretation Code Description Data Ellie rce(s) Supporting Document(s) white blood count 6.3 10 4.0-10.0 White Blood Count [place] ([facility]) red blood count 5.45 10 4.30-6.10 Red Blood Count [place] ([facility]) hematocrit 45.6 % 42.0-52.0 Hematocrit [place] ([facility]) hemoglobin 15.1 g/dL 13.5-17.5 Hemoglobin [place] ([facility]) mean corpuscular volume 83.7 fL 80.0-96.0 Mean Corpusc ular Volume [place] ([facility]) mean corpuscular HGB conc 33.1 g/dL 32.0-36.5 Mean Corpu scular HGB Conc [place] ([facility]) mean corpuscular hemoglobin 27.7 pg 27.0-33.0 Mean Cor puscular Hemoglobin [place] ([facility]) platelet count, automated 230 10 150-450 Platelet C ount, Automated [place] ([facility]) neutrophils % 53.2 % 36.0-66.0 Neutrophils % [place] ( [facility]) red cell distribution width 13.5 % 11.5-14.5 Red Cell Distribution Width [place] ([facility]) mono % 9.6 % 2.0-8.0 Above high normal [place] % [place] ([facility]) eos % 2.7 % 0.0-3.0 Eos % [place] ([facility]) lymph % 33.6 % 24.0-44.0 Lymph % [place] ([facility]) immature granulocyte % 0.3 % 0-3.0 Immature Gran ulocyte % [place] ([facility]) baso % 0.6 % 0.0-1.0 Baso % [place] ([facility]) nucleated red blood cell % 0.0 % 0-0 Nucleated Red Blood Cell % [place] ([facility]) mono # 0.6 10 0.0-0.8 [place] # [place] ([facility]) neutrophils # 3.4 10 1.5-8.5 Neutrophils # [place] ( [facility]) eos # 0.2 10 0.0-0.5 Eos # [place] ([facility]) lymph # 2.1 10 1.5-5.0 Lymph # [place] ([facility]) baso # 0.0 10 0.0-0.2 Baso # [place] ([facility]) ID Date Data Source [id number] 04/29/2020 03:56:00 PM EDT [place] ([facility]) Name Value Range Interpretation Code Description Data Ellie rce(s) Supporting Document(s) glucose, fasting 97 mg/dL 70-100 Glucose, Fasting AT [facility]) blood urea nitrogen 19 mg/dL 7-18 Above high normal Blood Ure a Nitrogen [place] ([facility]) creatinine for GFR 1.12 mg/dL 0.70-1.30 Creatinine for GF R [place] ([facility]) potassium serum 4.1 mEq/L 3.5-5.1 Potassium Serum [place] ([facility]) glomerular filtration rate > 60.0 >60 Glomerula r Filtration Rate [place] ([facility]) sodium level 137 mEq/L 136-145 Sodium Level [place] ([facility]) chloride level 103 mEq/L 98-107 Chloride Level [place] ([facility]) anion gap 3 mEq/L 8-16 Below low normal Anion Gap [place] ( [facility]) calcium level 9.3 mg/dL 8.5-10.1 Calcium Level [place] ( [facility]) carbon dioxide level 31 mEq/L 21-32 Carbon Dioxide Level [place] ([facility]) ID Date Data Source [id number] 04/29/2020 03:56:00 PM EDT [place] ([facility]) Name Value Range Interpretation Code Description Data Ellie rce(s) Supporting Document(s) AST/SGOT 13 U/L 7-37 AST/SGOT [place] ([facility]) ALT/SGPT 25 U/L 12-78 ALT/SGPT [place] ([facility]) bilirubin,total 0.5 mg/dL 0.2-1.0 Bilirubin,total [place] ([facility]) bilirubin,direct 0.2 mg/dL 0.0-0.2 Bilirubin,direct AT [facility] ([facility]) alkaline phosphatase 76 U/L 45-117 Alkaline Phosph atase [place] ([facility]) albumin 4.0 gm/dL 3.2-5.2 Albumin [place] ([facility]) albumin/globulin ratio Albumin/globu wu Ratio [place] ([facility]) total protein 7.0 gm/dL 6.4-8.2 Total Protein [place] ( [facility]) ID Date Data Source [id number] 04/29/2020 03:56:00 PM EDT [place] ([facility]) Name Value Range Interpretation Code Description Data Ellie rce(s) Supporting Document(s) CK-mb value mass 1.1 NG/mL <3.6 CK-mb Value Mass AT [facility] ([facility]) CPK creatine phosphokinase 142 U/L 39-308 CPK Creat ine Phosphokinase [place] ([facility]) mb/CK relative index < or =4 mb/CK Relative Index [place] ([facility]) troponin I < 0.02 < 0.10 Troponin I [place] ([facility]) ID Date Data Source [id number] 04/29/2020 03:56:00 PM EDT [place] ([facility]) Name Value Range Interpretation Code Description Data Ellie rce(s) Supporting Document(s) partial thromboplastin time 30.8 seconds 24.2-38.5 Partial Thromboplastin Time [place] ([facility]) ID Date Data Source [id number] 04/29/2020 03:56:00 PM EDT [place] ([facility]) Name Value Range Interpretation Code Description Data Ellei rce(s) Supporting Document(s) prothrombin time 13.2 seconds 12.5-14.3 Prothrombin Time [place] ([facility]) INR Inr [place] ([facility]) ID Date Data Source [id number] 04/29/2020 03:56:00 PM EDT [place] ([facility]) Name Value Range Interpretation Code Description Data Ellie rce(s) Supporting Document(s) white blood count 6.3 10 4.0-10.0 White Blood Count [place] ([facility]) red blood count 5.45 10 4.30-6.10 Red Blood Count [facility] ([facility]) hemoglobin 15.1 g/dL 13.5-17.5 Hemoglobin [place] ([facility]) hematocrit 45.6 % 42.0-52.0 Hematocrit [place] ([facility]) mean corpuscular HGB conc 33.1 g/dL 32.0-36.5 Mean Corpu scular HGB Conc [place] ([facility]) mean corpuscular hemoglobin 27.7 pg 27.0-33.0 Mean Cor puscular Hemoglobin [place] ([facility]) mean corpuscular volume 83.7 fL 80.0-96.0 Mean Corpusc ular Volume [place] ([facility]) platelet count, automated 230 10 150-450 Platelet C ount, Automated [place] ([facility]) red cell distribution width 13.5 % 11.5-14.5 Red Cell Distribution Width [place] ([facility]) neutrophils % 53.2 % 36.0-66.0 Neutrophils % [place] ( [facility]) lymph % 33.6 % 24.0-44.0 Lymph % [place] ([facility]) eos % 2.7 % 0.0-3.0 Eos % [place] ([facility]) mono % 9.6 % 2.0-8.0 Above high normal [place] % [place] ([facility]) baso % 0.6 % 0.0-1.0 Baso % [place] ([facility]) nucleated red blood cell % 0.0 % 0-0 Nucleated Red Blood Cell % [place] ([facility]) immature granulocyte % 0.3 % 0-3.0 Immature Gran ulocyte % [place] ([facility]) mono # 0.6 10 0.0-0.8 [place] # [place] ([facility]) neutrophils # 3.4 10 1.5-8.5 Neutrophils # [place] ( [facility] [facility]) lymph # 2.1 10 1.5-5.0 Lymph # [place] ([facility]) eos # 0.2 10 0.0-0.5 Eos # [place] ([facility]) baso # 0.0 10 0.0-0.2 Baso # [place] ([facility]) ID Date Data Source [id number] 04/29/2020 03:56:00 PM EDT [place] ([facility]) Name Value Range Interpretation Code Description Data Ellie rce(s) Supporting Document(s) glucose, fasting 97 mg/dL 70-100 Glucose, Fasting AT [facility]) blood urea nitrogen 19 mg/dL 7-18 Above high normal Blood Ure a Nitrogen [place] ([facility]) glomerular filtration rate > 60.0 >60 Glomerula r Filtration Rate [place] ([facility]) creatinine for GFR 1.12 mg/dL 0.70-1.30 Creatinine for GF R [place] ([facility]) sodium level 137 mEq/L 136-145 Sodium Level [place] ([facility]) chloride level 103 mEq/L 98-107 Chloride Level [place] ([facility]) potassium serum 4.1 mEq/L 3.5-5.1 Potassium Serum [place] ([facility]) anion gap 3 mEq/L 8-16 Below low normal Anion Gap [place] ( [facility]) calcium level 9.3 mg/dL 8.5-10.1 Calcium Level [place] ( [facility]) carbon dioxide level 31 mEq/L 21-32 Carbon Dioxide Level [place] ([facility]) ID Date Data Source [id number] 04/29/2020 03:56:00 PM EDT [place] ([facility]) Name Value Range Interpretation Code Description Data Ellie rce(s) Supporting Document(s) AST/SGOT 13 U/L 7-37 AST/SGOT [place] ([facility]) ALT/SGPT 25 U/L 12-78 ALT/SGPT [place] ([facility]) alkaline phosphatase 76 U/L 45-117 Alkaline Phosph atase [place] ([facility]) bilirubin,total 0.5 mg/dL 0.2-1.0 Bilirubin,total [place] ([facility]) bilirubin,direct 0.2 mg/dL 0.0-0.2 Bilirubin,direct AT [facility] ([facility]) albumin 4.0 gm/dL 3.2-5.2 Albumin [place] ([facility]) total protein 7.0 gm/dL 6.4-8.2 Total Protein [place] ( [facility]) albumin/globulin ratio Albumin/globu wu Ratio [place] ([facility]) ID Date Data Source [id number] 03/23/2020 12:00:00 AM EST [facility] Name Value Range Interpretation Code Description Data Ellie rce(s) Supporting Document(s) SARS-CoV2 Rapid Antigen Negative [facility] This lab was ordered by [facility] and reported by [facility]. ID Date Data Source [id number] 01/09/2020 03:51:00 PM EST [place] ([facility]) Name Value Range Interpretation Code Description Data Ellie rce(s) Supporting Document(s) C reactive protein quantitativ < 0.30 0.00-0.30 C Reactive Protein Quantitativ [place] ([facility]) ID Date Data Source [id number] 01/09/2020 03:51:00 PM EST [place] ([facility]) Name Value Range Interpretation Code Description Data Ellie rce(s) Supporting Document(s) cholesterol level 278 mg/dL <200 Above high normal Cholesterol Level [place] ([facility]) triglycerides level 314 mg/dL <150 Above high normal Triglycer ides Level [place] ([facility]) cholesterol risk ratio <5 Above high normal Choles terol Risk Ratio [place] ([facility]) non-HDL-C 240 mg/dL Non-hdl-c [place] ([facility]) Cholesterol in LDL [Mass/volume] in Serum or Plasma 177 mg/dL <100 Above high normal LDL Cholesterol [place] ([facility]) HDL cholesterol 38 mg/dL >40 Below low normal HDL Cholestero l [place] ([facility]) ID Date Data Source [id number] 01/09/2020 03:51:00 PM EST [place] ([facility]) Name Value Range Interpretation Code Description Data Ellie rce(s) Supporting Document(s) C reactive protein quantitativ < 0.30 0.00-0.30 C Reactive Protein Quantitativ [place] ([facility]) ID Date Data Source [id number] 01/09/2020 03:51:00 PM EST [place] ([facility]) Name Value Range Interpretation Code Description Data Ellie rce(s) Supporting Document(s) cholesterol level 278 mg/dL <200 Above high normal Cholesterol Level [place] ([facility]) triglycerides level 314 mg/dL <150 Above high normal Triglycer ides Level [place] ([facility]) non-HDL-C 240 mg/dL Non-hdl-c [place] ([facility]) cholesterol risk ratio <5 Above high normal Choles terol Risk Ratio [place] ([facility]) HDL cholesterol 38 mg/dL >40 Below low normal HDL Cholestero l [place] ([facility]) Cholesterol in LDL [Mass/volume] in Serum or Plasma 177 mg/dL <100 Above high normal LDL Cholesterol [place] ([facility]) ID Date Data Source [id number] 01/09/2020 03:51:00 PM EST [place] ([facility]) Name Value Range Interpretation Code Description Data Ellie rce(s) Supporting Document(s) C reactive protein quantitativ < 0.30 0.00-0.30 C Reactive Protein Quantitativ [place] ([facility]) ID Date Data Source [id number] 01/09/2020 03:51:00 PM EST [place] ([facility]) Name Value Range Interpretation Code Description Data Ellie rce(s) Supporting Document(s) cholesterol level 278 mg/dL <200 Above high normal Cholesterol Level [place] ([facility]) triglycerides level 314 mg/dL <150 Above high normal Triglycer ides Level [place] ([facility]) HDL cholesterol 38 mg/dL >40 Below low normal HDL Cholestero l [place] ([facility]) Cholesterol in LDL [Mass/volume] in Serum or Plasma 177 mg/dL <100 Above high normal LDL Cholesterol [place] ([facility]) cholesterol risk ratio <5 Above high normal Choles terol Risk Ratio [place] ([facility]) non-HDL-C 240 mg/dL Non-hdl-c [place] ([facility]) ID Date Data Source [id number] 01/09/2020 03:51:00 PM EST [place] ([facility]) Name Value Range Interpretation Code Description Data Ellie rce(s) Supporting Document(s) C reactive protein quantitativ < 0.30 0.00-0.30 C Reactive Protein Quantitativ [place] ([facility]) ID Date Data Source [id number] 01/09/2020 03:51:00 PM EST [place] ([facility]) Name Value Range Interpretation Code Description Data Ellie rce(s) Supporting Document(s) HDL cholesterol 38 mg/dL >40 Below low normal HDL Cholestero l [place] ([facility]) triglycerides level 314 mg/dL <150 Above high normal Triglycer ides Level [place] ([facility]) cholesterol level 278 mg/dL <200 Above high normal Cholesterol Level [place] ([facility]) non-HDL-C 240 mg/dL Non-hdl-c [place] ([facility]) cholesterol risk ratio <5 Above high normal Choles terol Risk Ratio [place] ([facility]) Cholesterol in LDL [Mass/volume] in Serum or Plasma 177 mg/dL <100 Above high normal LDL Cholesterol [place] ([facility]) ID Date Data Source [id number] 01/09/2020 03:51:00 PM EST [place] ([facility]) Name Value Range Interpretation Code Description Data Ellie rce(s) Supporting Document(s) C reactive protein quantitativ < 0.30 0.00-0.30 C Reactive Protein Quantitativ [place] ([facility]) ID Date Data Source [id number] 01/09/2020 03:51:00 PM EST [place] ([facility]) Name Value Range Interpretation Code Description Data Ellie rce(s) Supporting Document(s) triglycerides level 314 mg/dL <150 Above high normal Triglycer ides Level [place] ([facility]) cholesterol level 278 mg/dL <200 Above high normal Cholesterol Level [place] ([facility]) HDL cholesterol 38 mg/dL >40 Below low normal HDL Cholestero l [place] ([facility]) non-HDL-C 240 mg/dL Non-hdl-c [place] ([facility]) Cholesterol in LDL [Mass/volume] in Serum or Plasma 177 mg/dL <100 Above high normal LDL Cholesterol [place] ([facility]) cholesterol risk ratio <5 Above high normal Choles terol Risk Ratio [place] ([facility]) ID Date Data Source [id number] 01/09/2020 03:51:00 PM EST [place] ([facility]) Name Value Range Interpretation Code Description Data Ellie rce(s) Supporting Document(s) C reactive protein quantitativ < 0.30 0.00-0.30 C Reactive Protein Quantitativ [place] ([facility]) ID Date Data Source [id number] 01/09/2020 03:51:00 PM EST [place] ([facility]) Name Value Range Interpretation Code Description Data Ellie rce(s) Supporting Document(s) triglycerides level 314 mg/dL <150 Above high normal Triglycer ides Level [place] ([facility]) cholesterol level 278 mg/dL <200 Above high normal Cholesterol Level [place] ([facility]) HDL cholesterol 38 mg/dL >40 Below low normal HDL Cholestero l [place] ([facility]) non-HDL-C 240 mg/dL Non-hdl-c [place] ([facility]) Cholesterol in LDL [Mass/volume] in Serum or Plasma 177 mg/dL <100 Above high normal LDL Cholesterol [place] ([facility]) cholesterol risk ratio <5 Above high normal Choles terol Risk Ratio [place] ([facility]) ID Date Data Source [id number] 01/09/2020 03:51:00 PM EST [place] ([facility]) Name Value Range Interpretation Code Description Data Ellie rce(s) Supporting Document(s) C reactive protein quantitativ < 0.30 0.00-0.30 C Reactive Protein Quantitativ [place] ([facility]) ID Date Data Source [id number] 01/09/2020 03:51:00 PM EST [place] ([facility]) Name Value Range Interpretation Code Description Data Ellie rce(s) Supporting Document(s) cholesterol level 278 mg/dL <200 Above high normal Cholesterol Level [place] ([facility]) triglycerides level 314 mg/dL <150 Above high normal Triglycer ides Level [place] ([facility]) HDL cholesterol 38 mg/dL >40 Below low normal HDL Cholestero l [place] ([facility]) Cholesterol in LDL [Mass/volume] in Serum or Plasma 177 mg/dL <100 Above high normal LDL Cholesterol [place] ([facility]) non-HDL-C 240 mg/dL Non-hdl-c [place] ([facility]) cholesterol risk ratio <5 Above high normal Choles terol Risk Ratio [place] ([facility]) ID Date Data Source [id number] 01/09/2020 03:51:00 PM EST [place] ([facility]) Name Value Range Interpretation Code Description Data Ellie rce(s) Supporting Document(s) C reactive protein quantitativ < 0.30 0.00-0.30 C Reactive Protein Quantitativ [place] ([facility]) ID Date Data Source [id number] 01/09/2020 03:51:00 PM EST [place] ([facility]) Name Value Range Interpretation Code Description Data Ellie rce(s) Supporting Document(s) triglycerides level 314 mg/dL <150 Above high normal Triglycer ides Level [place] ([facility]) cholesterol level 278 mg/dL <200 Above high normal Cholesterol Level [place] ([facility]) HDL cholesterol 38 mg/dL >40 Below low normal HDL Cholestero l [place] ([facility]) Cholesterol in LDL [Mass/volume] in Serum or Plasma 177 mg/dL <100 Above high normal LDL Cholesterol [place] ([facility]) cholesterol risk ratio <5 Above high normal Choles terol Risk Ratio [place] ([facility]) non-HDL-C 240 mg/dL Non-hdl-c [place] ([facility]) ID Date Data Source [id number] 01/09/2020 03:51:00 PM EST [place] ([facility]) Name Value Range Interpretation Code Description Data Ellie rce(s) Supporting Document(s) C reactive protein quantitativ < 0.30 0.00-0.30 C Reactive Protein Quantitativ [place] ([facility]) ID Date Data Source [id number] 01/09/2020 03:51:00 PM EST [place] ([facility]) Name Value Range Interpretation Code Description Data Ellie rce(s) Supporting Document(s) cholesterol level 278 mg/dL <200 Above high normal Cholesterol Level [place] ([facility]) triglycerides level 314 mg/dL <150 Above high normal Triglycer ides Level [place] ([facility]) HDL cholesterol 38 mg/dL >40 Below low normal HDL Cholestero l [place] ([facility]) Cholesterol in LDL [Mass/volume] in Serum or Plasma 177 mg/dL <100 Above high normal LDL Cholesterol [place] ([facility]) cholesterol risk ratio <5 Above high normal Choles terol Risk Ratio [place] ([facility]) non-HDL-C 240 mg/dL Non-hdl-c [place] ([facility]) ID Date Data Source [id number] 01/09/2020 03:51:00 PM EST [place] ([facility]) Name Value Range Interpretation Code Description Data Ellie rce(s) Supporting Document(s) C reactive protein quantitativ < 0.30 0.00-0.30 C Reactive Protein Quantitativ [place] ([facility]) ID Date Data Source [id number] 01/09/2020 03:51:00 PM EST [place] ([facility]) Name Value Range Interpretation Code Description Data Ellie rce(s) Supporting Document(s) cholesterol level 278 mg/dL <200 Above high normal Cholesterol Level [place] ([facility]) Cholesterol in LDL [Mass/volume] in Serum or Plasma 177 mg/dL <100 Above high normal LDL Cholesterol [place] ([facility]) HDL cholesterol 38 mg/dL >40 Below low normal HDL Cholestero l [place] ([facility]) triglycerides level 314 mg/dL <150 Above high normal Triglycer ides Level [place] ([facility]) non-HDL-C 240 mg/dL Non-hdl-c [place] ([facility]) cholesterol risk ratio <5 Above high normal Choles terol Risk Ratio [place] ([facility]) ID Date Data Source [id number] 01/09/2020 03:51:00 PM EST [place] ([facility]) Name Value Range Interpretation Code Description Data Ellie rce(s) Supporting Document(s) C reactive protein quantitativ < 0.30 0.00-0.30 C Reactive Protein Quantitativ [place] ([facility]) ID Date Data Source [id number] 01/09/2020 03:51:00 PM EST [place] ([facility]) Name Value Range Interpretation Code Description Data Ellie rce(s) Supporting Document(s) HDL cholesterol 38 mg/dL >40 Below low normal HDL Cholestero l [place] ([facility]) triglycerides level 314 mg/dL <150 Above high normal Triglycer ides Level [place] ([facility]) cholesterol level 278 mg/dL <200 Above high normal Cholesterol Level [place] ([facility]) Cholesterol in LDL [Mass/volume] in Serum or Plasma 177 mg/dL <100 Above high normal LDL Cholesterol [place] ([facility]) non-HDL-C 240 mg/dL Non-hdl-c [place] ([facility]) cholesterol risk ratio <5 Above high normal Choles terol Risk Ratio [place] ([facility]) ID Date Data Source [id number] 01/09/2020 03:51:00 PM EST [place] ([facility]) Name Value Range Interpretation Code Description Data Ellie rce(s) Supporting Document(s) C reactive protein quantitativ < 0.30 0.00-0.30 C Reactive Protein Quantitativ [place] ([facility]) ID Date Data Source [id number] 01/09/2020 03:51:00 PM EST [place] ([facility]) Name Value Range Interpretation Code Description Data Ellie rce(s) Supporting Document(s) triglycerides level 314 mg/dL <150 Above high normal Triglycer ides Level [place] ([facility]) HDL cholesterol 38 mg/dL >40 Below low normal HDL Cholestero l [place] ([facility]) cholesterol level 278 mg/dL <200 Above high normal Cholesterol Level [place] ([facility]) Cholesterol in LDL [Mass/volume] in Serum or Plasma 177 mg/dL <100 Above high normal LDL Cholesterol [place] ([facility]) non-HDL-C 240 mg/dL Non-hdl-c [place] ([facility]) cholesterol risk ratio <5 Above high normal Choles terol Risk Ratio [place] ([facility]) ID Date Data Source [id number] 01/09/2020 03:51:00 PM EST [place] ([facility]) Name Value Range Interpretation Code Description Data Ellie rce(s) Supporting Document(s) C reactive protein [Mass/volume] in Serum or Plasma by High sensitivity method Laboratory test result 0.00-0.30 [place] ([facility]) ID Date Data Source [id number] 01/09/2020 03:51:00 PM EST [place] ([facility]) Name Value Range Interpretation Code Description Data Ellie rce(s) Supporting Document(s) Triglycerides Level 314 mg/dL [place] ([facility]) HDL Cholesterol 38 mg/dL [place] ([facility]) Cholesterol Level 278 mg/dL [place] ([facility]) Cholesterol Risk Ratio 7.315 [place] ([facility]) LDL Cholesterol 177 mg/dL [place] ([facility]) Non-HDL-C 240 mg/dL [place] [facility] ID Date Data Source [id number] 01/09/2020 03:51:00 PM [facility] Name Value Range Interpretation Code Description Data Ellie rce(s) Supporting Document(s) C reactive protein quantitativ < 0.30 0.00-0.30 C Reactive Protein Quantitativ [place] ([facility]) ID Date Data Source [id number] 01/09/2020 03:51:00 PM EST [place] ([facility]) Name Value Range Interpretation Code Description Data Ellie rce(s) Supporting Document(s) triglycerides level 314 mg/dL <150 Above high normal Triglycer ides Level [place] ([facility]) cholesterol level 278 mg/dL <200 Above high normal Cholesterol Level [place] ([facility]) HDL cholesterol 38 mg/dL >40 Below low normal HDL Cholestero l [place] ([facility]) non-HDL-C 240 mg/dL Non-hdl-c [place] ([facility]) Cholesterol in LDL [Mass/volume] in Serum or Plasma 177 mg/dL <100 Above high normal LDL Cholesterol [place] ([facility]) cholesterol risk ratio <5 Above high normal Choles terol Risk Ratio [place] ([facility]) ID Date Data Source [id number] 01/09/2020 03:51:00 PM EST [place] ([facility]) Name Value Range Interpretation Code Description Data Ellie rce(s) Supporting Document(s) C reactive protein quantitativ < 0.30 0.00-0.30 C Reactive Protein Quantitativ [place] ([facility]) ID Date Data Source [id number] 01/09/2020 03:51:00 PM EST [place] ([facility]) Name Value Range Interpretation Code Description Data Ellie rce(s) Supporting Document(s) cholesterol level 278 mg/dL <200 Above high normal Cholesterol Level [place] ([facility]) triglycerides level 314 mg/dL <150 Above high normal Triglycer ides Level [place] ([facility]) non-HDL-C 240 mg/dL Non-hdl-c [place] ([facility]) Cholesterol in LDL [Mass/volume] in Serum or Plasma 177 mg/dL <100 Above high normal LDL Cholesterol [place] ([facility]) HDL cholesterol 38 mg/dL >40 Below low normal HDL Cholestero l [place] ([facility]) cholesterol risk ratio <5 Above high normal Choles terol Risk Ratio [place] ([facility]) ID Date Data Source [id number] 01/09/2020 03:51:00 PM EST [place] ([facility]) Name Value Range Interpretation Code Description Data Ellie rce(s) Supporting Document(s) C reactive protein quantitativ < 0.30 0.00-0.30 C Reactive Protein Quantitativ [place] ([facility]) ID Date Data Source [id number] 01/09/2020 03:51:00 PM EST [place] ([facility]) Name Value Range Interpretation Code Description Data Ellie rce(s) Supporting Document(s) triglycerides level 314 mg/dL <150 Above high normal Triglycer ides Level [place] ([facility]) cholesterol level 278 mg/dL <200 Above high normal Cholesterol Level [place] ([facility]) HDL cholesterol 38 mg/dL >40 Below low normal HDL Cholestero l [place] ([facility]) cholesterol risk ratio <5 Above high normal Choles terol Risk Ratio [place] ([facility]) Cholesterol in LDL [Mass/volume] in Serum or Plasma 177 mg/dL <100 Above high normal LDL Cholesterol [facility] ([facility]) non-HDL-C 240 mg/dL Non-hdl-c [place] ([facility]) ID Date Data Source [id number] 01/09/2020 03:51:00 PM EST [place] ([facility]) Name Value Range Interpretation Code Description Data Ellie rce(s) Supporting Document(s) C reactive protein quantitativ < 0.30 0.00-0.30 C Reactive Protein Quantitativ [place] ([facility]) ID Date Data Source [id number] 01/09/2020 03:51:00 PM EST [place] ([facility]) Name Value Range Interpretation Code Description Data Ellie rce(s) Supporting Document(s) triglycerides level 314 mg/dL <150 Above high normal Triglycer ides Level [place] ([facility]) cholesterol level 278 mg/dL <200 Above high normal Cholesterol Level [place] ([facility]) non-HDL-C 240 mg/dL Non-hdl-c [place] ([facility]) HDL cholesterol 38 mg/dL >40 Below low normal HDL Cholestero l [place] ([facility]) Cholesterol in LDL [Mass/volume] in Serum or Plasma 177 mg/dL <100 Above high normal LDL Cholesterol [facility] ([facility]) cholesterol risk ratio <5 Above high normal Choles terol Risk Ratio [place] ([facility] [facility]) ID Date Data Source [id number] 01/09/2020 03:51:00 PM EST HILDA ([facility]) Name Value Range Interpretation Code Description Data Ellie rce(s) Supporting Document(s) C reactive protein quantitativ < 0.30 0.00-0.30 C Reactive Protein Quantitativ HILDA ([facility]) ID Date Data Source [id number] 01/09/2020 03:51:00 PM EST HILDA ([facility]) Name Value Range Interpretation Code Description Data Ellie rce(s) Supporting Document(s) cholesterol level 278 mg/dL <200 Above high normal Cholesterol Level HILDA ([facility]) triglycerides level 314 mg/dL <150 Above high normal Triglycer ides Level HILDA ([facility]) Cholesterol in LDL [Mass/volume] in Serum or Plasma 177 mg/dL <100 Above high normal LDL Cholesterol HILDA ([facility]) cholesterol risk ratio <5 Above high normal Choles terol Risk Ratio HILDA ([facility]) HDL cholesterol 38 mg/dL >40 Below low normal HDL Cholestero l HILDA ([facility]) non-HDL-C 240 mg/dL Non-hdl-c HILDA ([facility]) ID Date Data Source [id number] 01/09/2020 03:51:00 PM EST HILDA ([facility]) Name Value Range Interpretation Code Description Data Ellie rce(s) Supporting Document(s) C reactive protein quantitativ < 0.30 0.00-0.30 C Reactive Protein Quantitativ HILDA ([facility]) ID Date Data Source [id number] 01/09/2020 03:51:00 PM EST HILDA ([facility]) Name Value Range Interpretation Code Description Data Ellie rce(s) Supporting Document(s) cholesterol level 278 mg/dL <200 Above high normal Cholesterol Level HILDA ([facility]) HDL cholesterol 38 mg/dL >40 Below low normal HDL Cholestero l HILDA ([facility]) triglycerides level 314 mg/dL <150 Above high normal Triglycer ides Level HILDA ([facility]) non-HDL-C 240 mg/dL Non-hdl-c HILDA ([facility]) cholesterol risk ratio <5 Above high normal Choles terol Risk Ratio HILDA ([facility]) Cholesterol in LDL [Mass/volume] in Serum or Plasma 177 mg/dL <100 Above high normal LDL Cholesterol HILDA ([facility]) ID Date Data Source [id number] 01/09/2020 03:51:00 PM EST HILDA ([facility]) Name Value Range Interpretation Code Description Data Ellie rce(s) Supporting Document(s) C reactive protein quantitativ < 0.30 0.00-0.30 C Reactive Protein Quantitativ HILDA ([facility]) ID Date Data Source [id number] 01/09/2020 03:51:00 PM EST HILDA ([facility]) Name Value Range Interpretation Code Description Data Ellie rce(s) Supporting Document(s) triglycerides level 314 mg/dL <150 Above high normal Triglycer ides Level HILDA ([facility]) cholesterol level 278 mg/dL <200 Above high normal Cholesterol Level HILDA ([facility]) Cholesterol in LDL [Mass/volume] in Serum or Plasma 177 mg/dL <100 Above high normal LDL Cholesterol HILDA ([facility]) non-HDL-C 240 mg/dL Non-hdl-c HILDA ([facility]) HDL cholesterol 38 mg/dL >40 Below low normal HDL Cholestero l HILDA ([facility]) cholesterol risk ratio <5 Above high normal Choles terol Risk Ratio HILDA ([facility]) ID Date Data Source [id number] 01/09/2020 03:51:00 PM EST HILDA ([facility]) Name Value Range Interpretation Code Description Data Ellie rce(s) Supporting Document(s) C reactive protein quantitativ < 0.30 0.00-0.30 C Reactive Protein Quantitativ HILDA ([facility]) ID Date Data Source [id number] 01/09/2020 03:51:00 PM EST HILDA ([facility]) Name Value Range Interpretation Code Description Data Ellie rce(s) Supporting Document(s) triglycerides level 314 mg/dL <150 Above high normal Triglycer ides Level HILDA ([facility]) HDL cholesterol 38 mg/dL >40 Below low normal HDL Cholestero l HILDA ([facility]) non-HDL-C 240 mg/dL Non-hdl-c HILDA ([facility]) Cholesterol in LDL [Mass/volume] in Serum or Plasma 177 mg/dL <100 Above high normal LDL Cholesterol HILDA ([facility]) cholesterol level 278 mg/dL <200 Above high normal Cholesterol Level HILDA ([facility]) cholesterol risk ratio <5 Above high normal Choles terol Risk Ratio HILDA ([facility]) ID Date Data Source [id number] 01/09/2020 03:51:00 PM EST HILDA ([facility]) Name Value Range Interpretation Code Description Data Ellie rce(s) Supporting Document(s) C reactive protein quantitativ < 0.30 0.00-0.30 C Reactive Protein Quantitativ HILDA ([facility]) ID Date Data Source [id number] 01/09/2020 03:51:00 PM EST HILDA ([facility]) Name Value Range Interpretation Code Description Data Ellie rce(s) Supporting Document(s) triglycerides level 314 mg/dL <150 Above high normal Triglycer ides Level HILDA ([facility]) HDL cholesterol 38 mg/dL >40 Below low normal HDL Cholestero l HILDA ([facility]) Cholesterol in LDL [Mass/volume] in Serum or Plasma 177 mg/dL <100 Above high normal LDL Cholesterol HILDA ([facility]) cholesterol level 278 mg/dL <200 Above high normal Cholesterol Level HILDA ([facility]) non-HDL-C 240 mg/dL Non-hdl-c HILDA ([facility]) cholesterol risk ratio <5 Above high normal Choles terol Risk Ratio HILDA ([facility]) ID Date Data Source [id number] 01/09/2020 03:51:00 PM EST HILDA ([facility]) Name Value Range Interpretation Code Description Data Ellie rce(s) Supporting Document(s) C reactive protein quantitativ < 0.30 0.00-0.30 C Reactive Protein Quantitativ HILDA ([facility]) ID Date Data Source [id number] 01/09/2020 03:51:00 PM EST HILDA ([facility]) Name Value Range Interpretation Code Description Data Ellie rce(s) Supporting Document(s) cholesterol level 278 mg/dL <200 Above high normal Cholesterol Level HILDA ([facility]) triglycerides level 314 mg/dL <150 Above high normal Triglycer ides Level HILDA ([facility]) Cholesterol in LDL [Mass/volume] in Serum or Plasma 177 mg/dL <100 Above high normal LDL Cholesterol HILDA ([facility]) non-HDL-C 240 mg/dL Non-hdl-c HILDA ([facility]) cholesterol risk ratio <5 Above high normal Choles terol Risk Ratio HILDA ([facility]) HDL cholesterol 38 mg/dL >40 Below low normal HDL Cholestero l HILDA ([facility]) ID Date Data Source [id number] 01/09/2020 03:51:00 PM EST HILDA ([facility]) Name Value Range Interpretation Code Description Data Ellie rce(s) Supporting Document(s) C reactive protein quantitativ < 0.30 0.00-0.30 C Reactive Protein Quantitativ HLIDA ([facility]) ID Date Data Source [id number] 01/09/2020 03:51:00 PM EST HILDA ([facility]) Name Value Range Interpretation Code Description Data Ellie rce(s) Supporting Document(s) triglycerides level 314 mg/dL <150 Above high normal Triglycer ides Level HILDA ([facility]) Cholesterol in LDL [Mass/volume] in Serum or Plasma 177 mg/dL <100 Above high normal LDL Cholesterol HILDA ([facility]) HDL cholesterol 38 mg/dL >40 Below low normal HDL Cholestero l HILDA ([facility]) non-HDL-C 240 mg/dL Non-hdl-c HILDA ([facility]) cholesterol level 278 mg/dL <200 Above high normal Cholesterol Level HILDA ([facility]) cholesterol risk ratio <5 Above high normal Choles terol Risk Ratio HILDA ([facility]) ID Date Data Source [id number] 01/09/2020 03:51:00 PM EST HILDA ([facility]) Name Value Range Interpretation Code Description Data Ellie rce(s) Supporting Document(s) C reactive protein quantitativ < 0.30 0.00-0.30 C Reactive Protein Quantitativ HILDA ([facility]) ID Date Data Source [id number] 01/09/2020 03:51:00 PM EST HILDA ([facility]) Name Value Range Interpretation Code Description Data Ellie rce(s) Supporting Document(s) HDL cholesterol 38 mg/dL >40 Below low normal HDL Cholestero l HILDA ([facility]) cholesterol level 278 mg/dL <200 Above high normal Cholesterol Level HILDA ([facility]) triglycerides level 314 mg/dL <150 Above high normal Triglycer ides Level HILDA ([facility]) cholesterol risk ratio <5 Above high normal Choles terol Risk Ratio HILDA ([facility]) Cholesterol in LDL [Mass/volume] in Serum or Plasma 177 mg/dL <100 Above high normal LDL Cholesterol HILDA ([facility]) non-HDL-C 240 mg/dL Non-hdl-c HILDA ([facility]) ID Date Data Source [id number] 01/09/2020 03:51:00 PM EST HILDA ([facility]) Name Value Range Interpretation Code Description Data Ellie rce(s) Supporting Document(s) C reactive protein quantitativ < 0.30 0.00-0.30 C Reactive Protein Quantitativ HILDA ([facility]) ID Date Data Source [id number] 01/09/2020 03:51:00 PM EST HILDA ([facility]) Name Value Range Interpretation Code Description Data Ellie rce(s) Supporting Document(s) cholesterol level 278 mg/dL <200 Above high normal Cholesterol Level HILDA ([facility]) triglycerides level 314 mg/dL <150 Above high normal Triglycer ides Level HILDA ([facility]) Cholesterol in LDL [Mass/volume] in Serum or Plasma 177 mg/dL <100 Above high normal LDL Cholesterol HILDA ([facility]) non-HDL-C 240 mg/dL Non-hdl-c HILDA ([facility]) cholesterol risk ratio <5 Above high normal Choles terol Risk Ratio HILDA ([facility]) HDL cholesterol 38 mg/dL >40 Below low normal HDL Cholestero l HILDA ([facility]) ID Date Data Source [id number] 01/09/2020 03:51:00 PM EST HILDA ([facility]) Name Value Range Interpretation Code Description Data Ellie rce(s) Supporting Document(s) C reactive protein quantitativ < 0.30 0.00-0.30 C Reactive Protein Quantitativ HILDA ([facility]) ID Date Data Source [id number] 01/09/2020 03:51:00 PM EST HILDA ([facility]) Name Value Range Interpretation Code Description Data Ellie rce(s) Supporting Document(s) triglycerides level 314 mg/dL <150 Above high normal Triglycer ides Level HILDA ([facility]) cholesterol level 278 mg/dL <200 Above high normal Cholesterol Level HILDA ([facility]) HDL cholesterol 38 mg/dL >40 Below low normal HDL Cholestero l HILDA ([facility]) non-HDL-C 240 mg/dL Non-hdl-c HILDA ([facility]) Cholesterol in LDL [Mass/volume] in Serum or Plasma 177 mg/dL <100 Above high normal LDL Cholesterol HILDA ([facility]) cholesterol risk ratio <5 Above high normal Choles terol Risk Ratio HILDA ([facility]) ID Date Data Source [id number] 01/09/2020 03:51:00 PM EST HILDA ([facility]) Name Value Range Interpretation Code Description Data Ellie rce(s) Supporting Document(s) C reactive protein quantitativ < 0.30 0.00-0.30 C Reactive Protein Quantitativ HILDA ([facility]) ID Date Data Source [id number] 01/09/2020 03:51:00 PM EST HILDA ([facility]) Name Value Range Interpretation Code Description Data Ellie rce(s) Supporting Document(s) triglycerides level 314 mg/dL <150 Above high normal Triglycer ides Level HILDA ([facility]) HDL cholesterol 38 mg/dL >40 Below low normal HDL Cholestero l HILDA ([facility]) cholesterol level 278 mg/dL <200 Above high normal Cholesterol Level HILDA ([facility]) cholesterol risk ratio <5 Above high normal Choles terol Risk Ratio HILDA ([facility]) non-HDL-C 240 mg/dL Non-hdl-c HILDA ([facility]) Cholesterol in LDL [Mass/volume] in Serum or Plasma 177 mg/dL <100 Above high normal LDL Cholesterol HILDA ([facility]) ID Date Data Source [id number] 01/09/2020 03:51:00 PM EST HILDA ([facility]) Name Value Range Interpretation Code Description Data Ellie rce(s) Supporting Document(s) C reactive protein quantitativ < 0.30 0.00-0.30 C Reactive Protein Quantitativ HILDA ([facility]) ID Date Data Source [id number] 01/09/2020 03:51:00 PM EST HILDA ([facility]) Name Value Range Interpretation Code Description Data Ellie rce(s) Supporting Document(s) cholesterol level 278 mg/dL <200 Above high normal Cholesterol Level HILDA ([facility]) triglycerides level 314 mg/dL <150 Above high normal Triglycer ides Level HILDA ([facility]) cholesterol risk ratio <5 Above high normal Choles terol Risk Ratio HILDA ([facility]) non-HDL-C 240 mg/dL Non-hdl-c HILDA ([facility]) HDL cholesterol 38 mg/dL >40 Below low normal HDL Cholestero l HILDA ([facility]) Cholesterol in LDL [Mass/volume] in Serum or Plasma 177 mg/dL <100 Above high normal LDL Cholesterol HILDA ([facility]) ID Date Data Source [id number] 01/09/2020 03:51:00 PM EST HILDA ([facility]) Name Value Range Interpretation Code Description Data Ellie rce(s) Supporting Document(s) C reactive protein quantitativ < 0.30 0.00-0.30 C Reactive Protein Quantitativ HILDA ([facility]) ID Date Data Source [id number] 01/09/2020 03:51:00 PM EST HILDA ([facility]) Name Value Range Interpretation Code Description Data Ellie rce(s) Supporting Document(s) HDL cholesterol 38 mg/dL >40 Below low normal HDL Cholestero l HILDA ([facility]) triglycerides level 314 mg/dL <150 Above high normal Triglycer ides Level HILDA ([facility]) cholesterol level 278 mg/dL <200 Above high normal Cholesterol Level HILDA ([facility]) non-HDL-C 240 mg/dL Non-hdl-c HILDA ([facility]) cholesterol risk ratio <5 Above high normal Choles terol Risk Ratio HILDA ([facility]) Cholesterol in LDL [Mass/volume] in Serum or Plasma 177 mg/dL <100 Above high normal LDL Cholesterol HILDA ([facility]) ID Date Data Source [id number] 01/09/2020 03:51:00 PM EST HILDA ([facility]) Name Value Range Interpretation Code Description Data Ellie rce(s) Supporting Document(s) C reactive protein quantitativ < 0.30 0.00-0.30 C Reactive Protein Quantitativ HILDA ([facility]) ID Date Data Source [id number] 01/09/2020 03:51:00 PM EST HILDA ([facility]) Name Value Range Interpretation Code Description Data Ellie rce(s) Supporting Document(s) triglycerides level 314 mg/dL <150 Above high normal Triglycer ides Level HILDA ([facility]) cholesterol risk ratio <5 Above high normal Choles terol Risk Ratio HILDA ([facility]) Cholesterol in LDL [Mass/volume] in Serum or Plasma 177 mg/dL <100 Above high normal LDL Cholesterol HILDA ([facility]) HDL cholesterol 38 mg/dL >40 Below low normal HDL Cholestero l HILDA ([facility]) cholesterol level 278 mg/dL <200 Above high normal Cholesterol Level HILDA ([facility]) non-HDL-C 240 mg/dL Non-hdl-c HILDA ([facility]) ID Date Data Source [id number] 01/09/2020 03:51:00 PM EST HILDA ([facility]) Name Value Range Interpretation Code Description Data Ellie rce(s) Supporting Document(s) C reactive protein quantitativ < 0.30 0.00-0.30 C Reactive Protein Quantitativ HILDA ([facility]) ID Date Data Source [id number] 01/09/2020 03:51:00 PM EST HILDA ([facility]) Name Value Range Interpretation Code Description Data Ellie rce(s) Supporting Document(s) cholesterol level 278 mg/dL <200 Above high normal Cholesterol Level HILDA ([facility]) triglycerides level 314 mg/dL <150 Above high normal Triglycer ides Level HILDA ([facility]) non-HDL-C 240 mg/dL Non-hdl-c HILDA ([facility]) Cholesterol in LDL [Mass/volume] in Serum or Plasma 177 mg/dL <100 Above high normal LDL Cholesterol HILDA ([facility]) cholesterol risk ratio <5 Above high normal Choles terol Risk Ratio HILDA ([facility]) HDL cholesterol 38 mg/dL >40 Below low normal HDL Cholestero l HILDA ([facility]) ID Date Data Source [id number] 01/09/2020 03:51:00 PM EST HILDA ([facility]) Name Value Range Interpretation Code Description Data Ellie rce(s) Supporting Document(s) C reactive protein quantitativ < 0.30 0.00-0.30 C Reactive Protein Quantitativ HILDA ([facility]) ID Date Data Source [id number] 01/09/2020 03:51:00 PM EST HLIDA ([facility]) Name Value Range Interpretation Code Description Data Ellie rce(s) Supporting Document(s) cholesterol level 278 mg/dL <200 Above high normal Cholesterol Level HILDA ([facility]) HDL cholesterol 38 mg/dL >40 Below low normal HDL Cholestero l HILDA ([facility]) triglycerides level 314 mg/dL <150 Above high normal Triglycer ides Level HILDA ([facility]) Cholesterol in LDL [Mass/volume] in Serum or Plasma 177 mg/dL <100 Above high normal LDL Cholesterol HILDA ([facility]) cholesterol risk ratio <5 Above high normal Choles terol Risk Ratio HILDA ([facility]) non-HDL-C 240 mg/dL Non-hdl-c HILDA ([facility]) ID Date Data Source [id number] 01/09/2020 03:51:00 PM EST HILDA ([facility]) Name Value Range Interpretation Code Description Data Ellie rce(s) Supporting Document(s) C reactive protein quantitativ < 0.30 0.00-0.30 C Reactive Protein Quantitativ HILDA ([facility]) ID Date Data Source [id number] 01/09/2020 03:51:00 PM EST HILDA ([facility]) Name Value Range Interpretation Code Description Data Ellie rce(s) Supporting Document(s) triglycerides level 314 mg/dL <150 Above high normal Triglycer ides Level HILDA ([facility]) Cholesterol in LDL [Mass/volume] in Serum or Plasma 177 mg/dL <100 Above high normal LDL Cholesterol HILDA ([facility]) cholesterol level 278 mg/dL <200 Above high normal Cholesterol Level HILDA ([facility]) HDL cholesterol 38 mg/dL >40 Below low normal HDL Cholestero l HILDA ([facility]) non-HDL-C 240 mg/dL Non-hdl-c HILDA ([facility]) cholesterol risk ratio <5 Above high normal Choles terol Risk Ratio HILDA ([facility]) ID Date Data Source [id number] 12/17/2019 04:48:00 PM EST MEDENT ([facility]) Name Value Range Interpretation Code Description Data Ellie rce(s) Supporting Document(s) White Blood Count 8.2 4.0-10.0 MED[facility] ([facility]) Red Blood Count 5.36 4.00-5.40 [facility] ([facility]) Hemoglobin 14.5 [facility] ([facility]) Platelets 248 172-450 [facility] Hematocrit 45.1 [facility] ([facility]) ID Date Data Source [id number] 12/17/2019 04:48:00 PM EST MEDENT ([facility] Name Value Range Interpretation Code Description Data Ellie rce(s) Supporting Document(s) Magnesium Level 2.0 1.8-2.4 [facility] ([facility]) Thyroid Stimulating Hormone 1.360 ME DENT ([facility]) Free T4 0.73 [facility] ([facility] ID Date Data Source [id number] 12/17/2019 04:48:00 PM EST MEDENT ([facility]) Name Value Range Interpretation Code Description Data Ellie rce(s) Supporting Document(s) Alanine aminotransferase [Enzymatic activity/volume] in Serum or Pl asma 39 MEDENT ([facility]) Albumin [Mass/volume] in Serum or Plasma 3.7 [facility] ([facility]) Calcium [Mass/volume] in Serum or Plasma 8.9 [facility] ([facility]) Carbon dioxide, total [Moles/volume] in Serum or Plasma 30 [facility] ([facility]) Chloride [Moles/volume] in Serum or Plasma 105 [facility] ([facility]) Alkaline phosphatase [Enzymatic activity/volume] in Serum or Plasma 8 0 [facility] ([facility]) Protein [Mass/volume] in Serum or Plasma 7.1 [facility] ([facility]) Potassium [Moles/volume] in Serum or Plasma 4.0 [facility] ([facility]) Sodium 142 [facility] ([facility] Urea nitrogen [Mass/volume] in Serum or Plasma 20 [facility] ([facility]) Glucose 83 70-100 [facility] ([facility] Aspartate aminotransferase [Enzymatic activity/volume] in Serum or Plasma 24 [facility] ([facility]) Creatinine For GFR 1.16 [facility] ([facility]) ID Date Data Source [id number] 12/16/2019 02:05:00 PM EST [place] ([facility]) Name Value Range Interpretation Code Description Data Ellie rce(s) Supporting Document(s) ID Date Data Source [id number] 12/16/2019 02:05:00 PM EST [place] ([facility]) Name Value Range Interpretation Code Description Data Ellie rce(s) Supporting Document(s) ID Date Data Source [id number] 12/16/2019 02:05:00 PM EST [place] ([facility]) Name Value Range Interpretation Code Description Data Ellie rce(s) Supporting Document(s) ID Date Data Source [id number] 12/16/2019 02:05:00 PM EST [place] ([facility]) Name Value Range Interpretation Code Description Data Ellie rce(s) Supporting Document(s) ID Date Data Source [id number] 12/16/2019 02:05:00 PM EST [place] ([facility]) Name Value Range Interpretation Code Description Data Ellie rce(s) Supporting Document(s) ID Date Data Source [id number] 12/16/2019 02:05:00 PM EST [place] ([facility]) Name Value Range Interpretation Code Description Data Ellie rce(s) Supporting Document(s) ID Date Data Source [id number] 12/16/2019 02:05:00 PM EST [place] ([facility]) Name Value Range Interpretation Code Description Data Ellie rce(s) Supporting Document(s) ID Date Data Source [id number] 12/16/2019 02:05:00 PM EST [place] ([facility]) Name Value Range Interpretation Code Description Data Ellie rce(s) Supporting Document(s) ID Date Data Source [id number] 12/16/2019 02:05:00 PM EST [facility] [facility]) Name Value Range Interpretation Code Description Data Ellie rce(s) Supporting Document(s) ID Date Data Source [id number] 12/16/2019 02:05:00 PM EST [place] ([facility]) Name Value Range Interpretation Code Description Data Ellie rce(s) Supporting Document(s) ID Date Data Source [id number] 12/16/2019 02:05:00 PM EST [place] ([facility]) Name Value Range Interpretation Code Description Data Ellie rce(s) Supporting Document(s) ID Date Data Source [id number] 12/16/2019 02:05:00 PM EST [place] ([facility]) Name Value Range Interpretation Code Description Data Ellie rce(s) Supporting Document(s) ID Date Data Source [id number] 12/16/2019 02:05:00 PM EST [place] ([facility]) Name Value Range Interpretation Code Description Data Ellie rce(s) Supporting Document(s) ID Date Data Source [id number] 12/16/2019 02:05:00 PM EST [place] ([facility]) Name Value Range Interpretation Code Description Data Ellie rce(s) Supporting Document(s) ID Date Data Source [id number] 12/16/2019 02:05:00 PM EST [place] ([facility]) Name Value Range Interpretation Code Description Data Ellie rce(s) Supporting Document(s) ID Date Data Source [id number] 12/16/2019 02:05:00 PM EST [place] ([facility]) Name Value Range Interpretation Code Description Data Ellie rce(s) Supporting Document(s) ID Date Data Source [id number] 12/16/2019 02:05:00 PM EST [place] ([facility]) Name Value Range Interpretation Code Description Data Ellie rce(s) Supporting Document(s) ID Date Data Source [id number] 12/16/2019 02:05:00 PM EST [place] ([facility]) Name Value Range Interpretation Code Description Data Ellie rce(s) Supporting Document(s) ID Date Data Source [id number] 12/16/2019 02:05:00 PM EST [place] ([facility]) Name Value Range Interpretation Code Description Data Ellie rce(s) Supporting Document(s) ID Date Data Source [id number] 12/16/2019 02:05:00 PM EST [place] ([facility]) Name Value Range Interpretation Code Description Data Ellie rce(s) Supporting Document(s) ID Date Data Source [id number] 12/16/2019 02:05:00 PM EST [place] ([facility]) Name Value Range Interpretation Code Description Data Ellie rce(s) Supporting Document(s) ID Date Data Source [id number] 12/16/2019 02:05:00 PM EST [place] ([facility]) Name Value Range Interpretation Code Description Data Ellie rce(s) Supporting Document(s) ID Date Data Source [id number] 12/16/2019 02:05:00 PM EST [place] ([facility]) Name Value Range Interpretation Code Description Data Ellie rce(s) Supporting Document(s) ID Date Data Source [id number] 12/16/2019 02:05:00 PM EST [place] ([facility]) Name Value Range Interpretation Code Description Data Ellie rce(s) Supporting Document(s) ID Date Data Source [id number] 12/16/2019 02:05:00 PM EST [place] ([facility]) Name Value Range Interpretation Code Description Data Ellie rce(s) Supporting Document(s) ID Date Data Source [id number] 12/16/2019 02:05:00 PM EST [place] ([facility]) Name Value Range Interpretation Code Description Data Ellie rce(s) Supporting Document(s) ID Date Data Source [id number] 12/16/2019 02:05:00 PM EST [place] ([facility]) Name Value Range Interpretation Code Description Data Ellie rce(s) Supporting Document(s) ID Date Data Source [id number] 12/16/2019 02:05:00 PM EST [place] ([facility]) Name Value Range Interpretation Code Description Data Ellie rce(s) Supporting Document(s) ID Date Data Source [id number] 12/16/2019 02:05:00 PM EST [place] ([facility]) Name Value Range Interpretation Code Description Data Ellie rce(s) Supporting Document(s) ID Date Data Source [id number] 12/16/2019 02:05:00 PM EST [place] ([facility]) Name Value Range Interpretation Code Description Data Ellie rce(s) Supporting Document(s) ID Date Data Source [id number] 12/16/2019 02:05:00 PM EST [place] ([facility]) Name Value Range Interpretation Code Description Data Ellie rce(s) Supporting Document(s) ID Date Data Source [id number] 12/16/2019 02:05:00 PM EST [place] [facility]) Name Value Range Interpretation Code Description Data Ellie rce(s) Supporting Document(s) ID Date Data Source [id number] 12/16/2019 02:05:00 [facility] Name Value Range Interpretation Code Description Data Ellie rce(s) Supporting Document(s) ID Date Data Source [id number] 12/16/2019 02:05:00 PM EST [facility] Name Value Range Interpretation Code Description Data Ellie rce(s) Supporting Document(s) ID Date Data Source [id number] 12/16/2019 02:05:00 PM EST [facility] Name Value Range Interpretation Code Description Data Ellie rce(s) Supporting Document(s) ID Date Data Source [id number] 12/16/2019 02:05:00 PM EST [facility] Name Value Range Interpretation Code Description Data Ellie rce(s) Supporting Document(s) ID Date Data Source [id number] 12/16/2019 02:05:00 PM EST [facility] Name Value Range Interpretation Code Description Data Ellie rce(s) Supporting Document(s) ID Date Data Source [id number] 12/11/2019 04:30:00 AM EST [facility] Name Value Range Interpretation Code Description Data Ellie rce(s) Supporting Document(s) SARS-CoV-2 (COVID-19) RNA [Presence] in Respiratory specimen by HITESH with probe detection not detected not detected Sars Cov 2 RNA [facility]) ID Date Data Source [id number] 12/11/2019 04:30:00 AM EST [facility]) Name Value Range Interpretation Code Description Data Ellie rce(s) Supporting Document(s) SARS-CoV-2 (COVID-19) RNA [Presence] in Respiratory specimen by HITESH with probe detection not detected not detected Sars Cov 2 RNA [facility]) ID Date Data Source [id number] 12/11/2019 04:30:00 AM EST [facility]) Name Value Range Interpretation Code Description Data Ellie rce(s) Supporting Document(s) SARS-CoV-2 (COVID-19) RNA [Presence] in Respiratory specimen by HITESH with probe detection not detected not detected Sars Cov 2 RNA [facility]) ID Date Data Source [id number] 12/11/2019 04:30:00 AM EST [facility]) Name Value Range Interpretation Code Description Data Ellie rce(s) Supporting Document(s) SARS-CoV-2 (COVID-19) RNA [Presence] in Respiratory specimen by HITESH with probe detection not detected not detected Sars Cov 2 RNA [facility]) ID Date Data Source [id number] 12/11/2019 04:30:00 AM EST [facility]) Name Value Range Interpretation Code Description Data Ellie rce(s) Supporting Document(s) SARS-CoV-2 (COVID-19) RNA [Presence] in Respiratory specimen by HITESH with probe detection not detected not detected Sars Cov 2 RNA [facility]) ID Date Data Source [id number] 12/11/2019 04:30:00 AM EST [facility]) Name Value Range Interpretation Code Description Data Ellie rce(s) Supporting Document(s) SARS-CoV-2 (COVID-19) RNA [Presence] in Respiratory specimen by HITESH with probe detection not detected not detected Sars Cov 2 RNA [facility]) ID Date Data Source [id number] 12/11/2019 04:30:00 AM EST [facility]) Name Value Range Interpretation Code Description Data Ellie rce(s) Supporting Document(s) SARS-CoV-2 (COVID-19) RNA [Presence] in Respiratory specimen by HITESH with probe detection not detected not detected Sars Cov 2 RNA [facility]) ID Date Data Source [id number] 12/11/2019 04:30:00 AM EST [facility]) Name Value Range Interpretation Code Description Data Ellie rce(s) Supporting Document(s) SARS-CoV-2 (COVID-19) RNA [Presence] in Respiratory specimen by HITESH with probe detection not detected not detected Sars Cov 2 RNA [facility]) ID Date Data Source [id number] 12/11/2019 04:30:00 AM EST [facility]) Name Value Range Interpretation Code Description Data Ellie rce(s) Supporting Document(s) SARS-CoV-2 (COVID-19) RNA [Presence] in Respiratory specimen by HITESH with probe detection not detected not detected Sars Cov 2 RNA [facility]) ID Date Data Source [id number] 12/11/2019 04:30:00 AM EST [facility]) Name Value Range Interpretation Code Description Data Ellie rce(s) Supporting Document(s) SARS-CoV-2 (COVID-19) RNA [Presence] in Respiratory specimen by HITESH with probe detection not detected not detected Sars Cov 2 RNA [facility]) ID Date Data Source [id number] 12/11/2019 04:30:00 AM EST [facility]) Name Value Range Interpretation Code Description Data Ellie rce(s) Supporting Document(s) SARS-CoV-2 (COVID-19) RNA [Presence] in Respiratory specimen by HITESH with probe detection not detected not detected Sars Cov 2 RNA [facility]) ID Date Data Source [id number] 12/11/2019 04:30:00 AM EST [place] ([facility]) Name Value Range Interpretation Code Description Data Ellie rce(s) Supporting Document(s) SARS-CoV-2 (COVID-19) RNA [Presence] in Respiratory specimen by HITESH with probe detection not detected not detected Sars Cov 2 RNA [facility]) ID Date Data Source [id number] 12/11/2019 04:30:00 AM EST [place] ([facility]) Name Value Range Interpretation Code Description Data Ellie rce(s) Supporting Document(s) SARS-CoV-2 (COVID-19) RNA [Presence] in Respiratory specimen by HITESH with probe detection not detected not detected Sars Cov 2 RNA [facility]) ID Date Data Source [id number] 12/11/2019 04:30:00 AM EST [facility]) Name Value Range Interpretation Code Description Data Ellie rce(s) Supporting Document(s) SARS-CoV-2 (COVID-19) RNA [Presence] in Respiratory specimen by HITESH with probe detection not detected not detected Sars Cov 2 RNA [facility]) ID Date Data Source [id number] 12/11/2019 04:30:00 AM [facility] Name Value Range Interpretation Code Description Data Ellie rce(s) Supporting Document(s) SARS-CoV-2 (COVID-19) RNA [Presence] in Respiratory specimen by HITESH with probe detection not detected not detected Sars Cov 2 RNA [facility]) ID Date Data Source [id number] 12/11/2019 04:30:00 AM EST [facility]) Name Value Range Interpretation Code Description Data Ellie rce(s) Supporting Document(s) SARS-CoV-2 (COVID-19) RNA [Presence] in Respiratory specimen by HITESH with probe detection not detected not detected Sars Cov 2 RNA [place] ([facility]) ID Date Data Source [id number] 12/11/2019 04:30:00 AM EST [place] ([facility]) Name Value Range Interpretation Code Description Data Ellie rce(s) Supporting Document(s) SARS-CoV-2 (COVID-19) RNA [Presence] in Respiratory specimen by HITESH with probe detection not detected not detected Sars Cov 2 RNA [facility]) ID Date Data Source [id number] 12/11/2019 04:30:00 AM EST [facility]) Name Value Range Interpretation Code Description Data Ellie rce(s) Supporting Document(s) SARS-CoV-2 (COVID-19) RNA [Presence] in Respiratory specimen by HITESH with probe detection not detected not detected Sars Cov 2 RNA [facility]) ID Date Data Source [id number] 12/11/2019 04:30:00 AM EST [facility]) Name Value Range Interpretation Code Description Data Ellie rce(s) Supporting Document(s) SARS-CoV-2 (COVID-19) RNA [Presence] in Respiratory specimen by HITESH with probe detection not detected not detected Sars Cov 2 RNA [facility]) ID Date Data Source [id number] 12/11/2019 04:30:00 AM EST [facility]) Name Value Range Interpretation Code Description Data Ellie rce(s) Supporting Document(s) SARS-CoV-2 (COVID-19) RNA [Presence] in Respiratory specimen by HITESH with probe detection not detected not detected Sars Cov 2 RNA [facility]) ID Date Data Source [id number] 12/11/2019 04:30:00 AM EST [facility]) Name Value Range Interpretation Code Description Data Ellie rce(s) Supporting Document(s) SARS-CoV-2 (COVID-19) RNA [Presence] in Respiratory specimen by HITESH with probe detection not detected not detected Sars Cov 2 RNA [place] ([facility]) ID Date Data Source [id number] 12/11/2019 04:30:00 AM EST [place] ([facility]) Name Value Range Interpretation Code Description Data Ellie rce(s) Supporting Document(s) SARS-CoV-2 (COVID-19) RNA [Presence] in Respiratory specimen by HITESH with probe detection not detected not detected Sars Cov 2 RNA [facility]) ID Date Data Source [id number] 12/11/2019 04:30:00 AM EST [facility] Name Value Range Interpretation Code Description Data Ellie rce(s) Supporting Document(s) SARS-CoV-2 (COVID-19) RNA [Presence] in Respiratory specimen by HITESH with probe detection not detected not detected Sars Cov 2 RNA [facility]) ID Date Data Source [id number] 12/11/2019 04:30:00 AM EST [facility] Name Value Range Interpretation Code Description Data Ellie rce(s) Supporting Document(s) SARS-CoV-2 (COVID-19) RNA [Presence] in Respiratory specimen by HITESH with probe detection not detected not detected Sars Cov 2 RNA [facility] ID Date Data Source [id number] 12/11/2019 04:30:00 AM EST [facility]) Name Value Range Interpretation Code Description Data Ellie rce(s) Supporting Document(s) SARS-CoV-2 (COVID-19) RNA [Presence] in Respiratory specimen by HITESH with probe detection not detected not detected Sars Cov 2 RNA [facility]) ID Date Data Source [id number] 12/11/2019 04:30:00 AM EST [facility]) Name Value Range Interpretation Code Description Data Ellie rce(s) Supporting Document(s) SARS-CoV-2 (COVID-19) RNA [Presence] in Respiratory specimen by HITESH with probe detection not detected not detected Sars Cov 2 RNA [facility]) ID Date Data Source [id number] 12/11/2019 04:30:00 AM EST [facility]) Name Value Range Interpretation Code Description Data Ellie rce(s) Supporting Document(s) SARS-CoV-2 (COVID-19) RNA [Presence] in Respiratory specimen by HITESH with probe detection not detected not detected Sars Cov 2 RNA [facility]) ID Date Data Source [id number] 12/11/2019 04:30:00 AM EST [facility]) Name Value Range Interpretation Code Description Data Ellie rce(s) Supporting Document(s) SARS-CoV-2 (COVID-19) RNA [Presence] in Respiratory specimen by HITESH with probe detection not detected not detected Sars Cov 2 RNA [facility]) ID Date Data Source [id number] 12/11/2019 04:30:00 AM EST [facility]) Name Value Range Interpretation Code Description Data Ellie rce(s) Supporting Document(s) SARS-CoV-2 (COVID-19) RNA [Presence] in Respiratory specimen by HITESH with probe detection not detected not detected Sars Cov 2 RNA [facility]) ID Date Data Source [id number] 12/11/2019 04:30:00 AM EST [facility]) Name Value Range Interpretation Code Description Data Ellie rce(s) Supporting Document(s) SARS-CoV-2 (COVID-19) RNA [Presence] in Respiratory specimen by HITESH with probe detection not detected not detected Sars Cov 2 RNA [facility]) ID Date Data Source [id number] 12/11/2019 04:30:00 AM EST [place] ([facility]) Name Value Range Interpretation Code Description Data Ellie rce(s) Supporting Document(s) SARS coronavirus 2 RNA [Presence] in Res piratory specimen by HITESH with probe detection not detected not detected Sars Cov 2 RNA [place] ([facility]) ID Date Data Source [id number] 12/11/2019 04:30:00 AM EST [place] ([facility]) Name Value Range Interpretation Code Description Data Ellie rce(s) Supporting Document(s) SARS coronavirus 2 RNA [Presence] in Res piratory specimen by HITESH with probe detection not detected not detected Sars Cov 2 RNA [place] ([facility]) ID Date Data Source [id number] 12/11/2019 04:30:00 AM EST [place] ([facility]) Name Value Range Interpretation Code Description Data Ellie rce(s) Supporting Document(s) SARS coronavirus 2 RNA [Presence] in Res piratory specimen by HITESH with probe detection not detected not detected Sars Cov 2 RNA [place] ([facility]) ID Date Data Source [id number] 12/11/2019 04:30:00 AM EST [place] ([facility]) Name Value Range Interpretation Code Description Data Ellie rce(s) Supporting Document(s) SARS coronavirus 2 RNA [Presence] in Res piratory specimen by HITESH with probe detection not detected not detected Sars Cov 2 RNA [place] ([facility]) ID Date Data Source [id number] 12/11/2019 04:30:00 AM EST [facility] Name Value Range Interpretation Code Description Data Ellie rce(s) Supporting Document(s) SARS-COV-2 RNA RESP QL HITESH+PROBE [facility] This lab was ordered by [facility] and reported by [facility]. ID Date Data Source [id number] 12/11/2019 04:30:00 AM EST [place] ([facility]) Name Value Range Interpretation Code Description Data Ellie rce(s) Supporting Document(s) SARS-CoV-2 (COVID-19) RNA [Presence] in Respiratory specimen by HITESH with probe detection not detected not detected Sars Cov 2 RNA [facility]) ID Date Data Source [id number] 12/11/2019 04:30:00 AM EST [place] ([facility]) Name Value Range Interpretation Code Description Data Ellie rce(s) Supporting Document(s) SARS-CoV-2 (COVID-19) RNA [Presence] in Respiratory specimen by HITESH with probe detection not detected not detected Sars Cov 2 RNA [facility]) ID Date Data Source [id number] 12/11/2019 04:30:00 AM [facility]) Name Value Range Interpretation Code Description Data Ellie rce(s) Supporting Document(s) SARS-CoV-2 (COVID-19) RNA [Presence] in Respiratory specimen by HITESH with probe detection not detected not detected Sars Cov 2 RNA [facility]) ID Date Data Source [id number] 10/28/2019 05:05:00 PM EDT [facility] ([facility]) Name Value Range Interpretation Code Description Data Ellie rce(s) Supporting Document(s) Troponin Laboratory test result [facility] ([facility]) ID Date Data Source [id number] 10/28/2019 05:05:00 PM EDT [facility] ([facility]) Name Value Range Interpretation Code Description Data Ellie rce(s) Supporting Document(s) Creatine kinase [Enzymatic activity/volume] in Serum or Plasma 359 [facility] ([facility]) CPK-MB Laboratory test result [facility] ([facility]) ID Date Data Source [id number] 10/28/2019 03:32:56 PM EDT [facility] Measurements & CalculationsHeight: 72 inches (6 [...] 2019 3:36 PMPatient History Medical History:Anxiety/panicInsomniaSurgical History:Family History:KYV-kdmxrcYhirfro-ovnezlhNhsbjv/Personal History:Smoking History:Patient has never smoked. Chief Complaintfollow-up [...] jaw, sadness/scared/depressed. Pt also was seen in [facility] ER last night/this morning for panic attack. [...] during this visit, including review of any ymxy-nqd-mwdlwpd medications, herbal therapies, and/or supplements.Allergy ReviewAllergy List [...] is? ExcellentAssessment & Plan Problems:Added: Chronic insomnia ([id number]) Assessment: Instructions: As above.Chest pain, unspecified ([id number]) Assessment: Instructions: Referral to cardiology for evaluation. Unlikely to be cardiac in nature with frequent labs/EKG.Bradycardia (ICD-427.89) (ICD10- R00.1) Assessment: Instructions: Likely secondary to routine fitness levels. However, given brother's syncopal episodes and loop recorder, will refer to cardiology for evaluation.Assessed:GENERALIZED ANXIETY DISORDER (ICD- 300.02) (EVC21-N00.1) Assessment: Instructions: Continue current Lexapro daily and [...] episodes and loop recorder, will refer to nicole meieroguri for evaluation. Plan developed in collaboration with [...] HYDROXYZINE HCL 10 MG ORAL TABLET Qty: [id number] Refills: 30[Tablet] To: HYDROXYZINE HCL 10 MG ORAL TABLET-Take 1 tablet po q 6 hrs prnAllergies:No Known Allergies (updated 10/28/2019) Orders:Cardiology Consult [CPT-32863] Adult - Ofc Vst, EST, Level III [CPT- 85998] Follow-Up Return to clinic: in 2 months for follow upAdditional Follow- Up: cardio referral, anxietyClinical Visit Summary CompletedMedications:HYDROXYZINE HCL 25 MG ORAL TABLET (HYDROXYZINE HCL) Take 1- 2 tablets by mouth at bedtime prn insomnia #60[Tablet] x 1 Route:ORAL Entered and Authorized by: Terry AGUAYO [facility] ([facility] [address] [place] [address] Note to Pharmacy: Route: ORAL; Indications: CHRONIC INSOMNIA;GENERALIZED ANXIETY DISORDER RxID: [id number] signed by Terry AGUAYO on 11/13/2019 at 8:30 AM Name Value Range Interpretation Code Description Data Ellie rce(s) Supporting Document(s) ID Date Data Source [id number] 10/28/2019 02:21:00 AM EDT [facility] Name Value Range Interpretation Code Description Data Ellie rce(s) Supporting Document(s) HCT 45.6 % 42.0-52.0 N [facility] HGB 14.9 g/dL 13.5-17.5 N [facility] MCH 32.7 G/DL pg 32.0-36.[address] [facility] MCHC 27.6 PG % 27.0-33.0 [facility] PLATELETS 259 10 10*3/mm3 150-450 N [facility] RBC 5.40 10 10*6/mm3 4.30-6.10 [facility] RDW 13.2 % 11.5-14.5 [facility] WBC TOTAL 10.0 4.0-10.0 N [facility] ID Date Data Source [id number] 10/28/2019 02:21:00 AM EDT [facility] Name Value Range Interpretation Code Description Data Ellie rce(s) Supporting Document(s) BG FASTING 102 mg/dL 70-100 H [facility] ID Date Data Source [id number] 09/30/2019 01:44:56 PM EDT [facility] Measurements & CalculationsHeight: 72 inches (6 ft. [...] Present Illness (HPI)28 yo male presents for [facility] ER f/u. Pt states he has been having terrible migraines for a few days and yesterday woke up with heart racing, feeling like "brain on fire" and chest tightness. Went to [facility] ED last night and was released this [...] during this visit, including review of any xolo-yrn-ouqrjrj medications, herbal therapies, and/or supplements.Allergy ReviewAllergy List [...] Problems:Assessed:Adjustment disorder with mixed emotional features (ICD-309.28) (QAE64-Z67.23) Assessment: Instructions: Continue Lexapro daily. Hydroxyzine may be taken up to 2 tablets every 6 hrs daily as needed, with last dose at bedtime for insomnia. Ativan for severe panic, take 1/2 tablet to start and if no relief after 30 minutes then take second 1/2. New Rx sent for short supply.C/O - panic attack (ICD-300.01) (MBE82-I82.0) Assessment: Instructions: As above.Gastro-esophageal reflux disease without esophagitis (ICD-530.81) (DWM34-S81.9) Assessment: Instructions: Continue omeprazole as prescribed. Hold [...] - Ofc Vst, EST, Level III [CPT -81063] Follow-Up Return to clinic: as needed, as scheduled Clinical Visit Summary Completed Name Value Range Interpretation Code Description Data Ellie rce(s) Supporting Document(s) ID Date Data Source [id number] 09/30/2019 03:16:00 AM EDT [facility] Name Value Range Interpretation Code Description Data Ellie rce(s) Supporting Document(s) HCT 43.9 % 42.0-52.0 N [facility] HGB 15.1 g/dL 13.5-17.5 N [facility] MCH 34.4 G/DL pg 32.0-36.[address] [facility] MCHC 28.9 PG % 27.0-33.0 N [facility] PLATELETS 263 10 10*3/mm3 150-450 N [facility] RBC 5.22 10 10*6/mm3 4.30-6.10 N [facility] RDW 13.0 % 11.5-14.5 N [facility] WBC TOTAL 8.2 4.0-10.0 N [facility] ID Date Data Source [id number] 09/30/2019 03:16:00 AM EDT [facility] Name Value Range Interpretation Code Description Data Ellie rce(s) Supporting Document(s) BG FASTING 100 mg/dL 70-100 N [facility] T4, FREE 1.04 ng/dL 0.76-1.46 N [facility] TSH 2.080 microintl units/mL 0.358-3.740 N [facility] Procedure Social History Code Duration Value Status Description Data Source(s ) Smoking 01/07/2020 12:00:00 AM EST Patient is a former smoker completed Patient is a former smoker [facility] ([facility]) Vital Signs ID Date Data Source UNK Name Value Range Interpretation Code Description Data Source(s) Respiratory rate 12 /min 12 /min [facility] ( [facility], ) Body height 72 [in_i] 72 [in_i] [facility] ([facility], ) 6'0" Body weight 214.00 [lb_av] 214.00 [lb_av] [facility] ([facility], ) Body mass index (BMI) [Ratio] 29.0 kg/m2 29.0 k g/m2 [facility] ([facility], ) [place] body weight 178 [lb_av] 178 [lb_av] [facility] T ([facility], ) Body temperature 97.7 [degF] 97.7 [degF] [facility] ([facility] ) Body height 72 [in_i] 72 [in_i] [facility] ([facility]) 6'0" Body weight 214.12 [lb_av] 214.12 [lb_av] [facility] T ([facility]) Body mass index (BMI) [Ratio] 29.0 kg/m2 29.0 k g/m2 [facility] ([facility]) Body height 72 [in_i] 72 [in_i] [facility]ILDA ([facility]) Diastolic blood pressure 76 mm[Hg] 76 mm[Hg] [facility] ([facility]) Body weight 3507.2 [oz_av] 3507.2 [oz_av] ATHEN A ([facility]) Body mass index (BMI) [Ratio] 29.7 kg/m2 29.7 k g/m2 [facility] ([facility]) Systolic blood pressure 123 mm[Hg] 123 mm[Hg] A [facility] ([facility]) Diastolic blood pressure 76 mm[Hg] 76 mm[Hg] HILDA ([facility]) Body mass index (BMI) [Ratio] 29.7 kg/m2 29.7 k g/m2 [facility] ([facility]) Systolic blood pressure 123 mm[Hg] 123 mm[Hg] A THENA ([facility]) Body weight 3507.2 [oz_av] 3507.2 [oz_av] ATHEN A ([facility]) Body height 72 [in_i] 72 [in_i] HILDA ([facility]) Diastolic blood pressure 76 mm[Hg] 76 mm[Hg] [facility]DA ([facility]) Body height 72 [in_i] 72 [in_i] [facility]DA ([facility]) Body mass index (BMI) [Ratio] 29.7 kg/m2 29.7 k g/m2 [facility] ([facility]) Systolic blood pressure 123 mm[Hg] 123 mm[Hg] A THENA ([facility]) Body weight 3507.2 [oz_av] 3507.2 [oz_av] ATHEN A ([facility]) Diastolic blood pressure 76 mm[Hg] 76 mm[Hg] HILDA ([facility]) Body height 72 [in_i] 72 [in_i] [facility]DA ([facility]) Body mass index (BMI) [Ratio] 29.7 kg/m2 29.7 k g/m2 [facility] ([facility]) Systolic blood pressure 123 mm[Hg] 123 mm[Hg] A [facility] ([facility]) Body weight 3507.2 [oz_av] 3507.2 [oz_av] ATHEN A ([facility]) Diastolic blood pressure 76 mm[Hg] 76 mm[Hg] HILDA ([facility]) Body height 72 [in_i] 72 [in_i] H[facility]DA ([facility]) Body mass index (BMI) [Ratio] 29.7 kg/m2 29.7 k g/m2 [facility] ([facility]) Systolic blood pressure 123 mm[Hg] 123 mm[Hg] A [facility] ([facility]) Body weight 3507.2 [oz_av] 3507.2 [oz_av] ATHEN A ([facility]) Diastolic blood pressure 76 mm[Hg] 76 mm[Hg] HILDA ([facility]) Body height 72 [in_i] 72 [in_i] [facility] ([facility]) Body mass index (BMI) [Ratio] 29.7 kg/m2 29.7 k g/m2 [facility] ([facility]) Systolic blood pressure 123 mm[Hg] 123 mm[Hg] A [facility] ([facility]) Body weight 3507.2 [oz_av] 3507.2 [oz_av] ATHEN A ([facility]) Diastolic blood pressure 76 mm[Hg] 76 mm[Hg] HILDA ([facility]) Diastolic blood pressure 76 mm[Hg] 76 mm[Hg] [facility] ([facility]) Body height 72 [in_i] 72 [in_i] [facility] ([facility]) Body mass index (BMI) [Ratio] 29.7 kg/m2 29.7 k g/m2 [facility] ([facility]) Systolic blood pressure 123 mm[Hg] 123 mm[Hg] A [facility] ([facility]) Body weight 3507.2 [oz_av] 3507.2 [oz_av] ATHEN A ([facility]) Body height 72 [in_i] 72 [in_i] HILDA ([facility]) Body mass index (BMI) [Ratio] 29.7 kg/m2 29.7 k g/m2 [facility] ([facility]) Systolic blood pressure 123 mm[Hg] 123 mm[Hg] A [facility] ([facility]) Body weight 3507.2 [oz_av] 3507.2 [oz_av] ATHEN A ([facility]) Body weight 3507.2 [oz_av] 3507.2 [oz_av] ATHEN A ([facility]) Diastolic blood pressure 76 mm[Hg] 76 mm[Hg] HILDA ([facility]) Body height 72 [in_i] 72 [in_i] [facility] ([facility]) Body mass index (BMI) [Ratio] 29.7 kg/m2 29.7 k g/m2 [facility] ([facility]) Systolic blood pressure 123 mm[Hg] 123 mm[Hg] A [facility] ([facility]) Diastolic blood pressure 76 mm[Hg] 76 mm[Hg] [facility]DA ([facility]) Body height 72 [in_i] 72 [in_i] [facility]DA ([facility]) Body mass index (BMI) [Ratio] 29.7 kg/m2 29.7 k g/m2 [facility] ([facility]) Systolic blood pressure 123 mm[Hg] 123 mm[Hg] A [facility] ([facility]) Body weight 3507.2 [oz_av] 3507.2 [oz_av] ATHEN A ([facility]) Systolic blood pressure 123 mm[Hg] 123 mm[Hg] A THENA ([facility]) Body weight 3507.2 [oz_av] 3507.2 [oz_av] ATHEN A ([facility]) Diastolic blood pressure 76 mm[Hg] 76 mm[Hg] H[facility]DA ([facility]) Body height 72 [in_i] 72 [in_i] [facility]DA ([facility]) Body mass index (BMI) [Ratio] 29.7 kg/m2 29.7 k g/m2 [facility] ([facility]) Diastolic blood pressure 76 mm[Hg] 76 mm[Hg] [facility]DA ([facility]) Body height 72 [in_i] 72 [in_i] [facility]DA ([facility]) Body mass index (BMI) [Ratio] 29.7 kg/m2 29.7 k g/m2 [facility] ([facility]) Systolic blood pressure 123 mm[Hg] 123 mm[Hg] A [facility] ([facility]) Body weight 3507.2 [oz_av] 3507.2 [oz_av] ATHEN A ([facility]) Diastolic blood pressure 76 mm[Hg] 76 mm[Hg] HILDA ([facility]) Body height 72 [in_i] 72 [in_i] HILDA ([facility]) Body mass index (BMI) [Ratio] 29.7 kg/m2 29.7 k g/m2 [facility] ([facility]) Systolic blood pressure 123 mm[Hg] 123 mm[Hg] A [facility] ([facility]) Body weight 3507.2 [oz_av] 3507.2 [oz_av] ATHEN A ([facility]) Diastolic blood pressure 76 mm[Hg] 76 mm[Hg] H[facility]DA ([facility]) Body height 72 [in_i] 72 [in_i] H[facility]DA ([facility]) Body mass index (BMI) [Ratio] 29.7 kg/m2 29.7 k g/m2 [facility] ([facility]) Systolic blood pressure 123 mm[Hg] 123 mm[Hg] A [facility] ([facility]) Body weight 3507.2 [oz_av] 3507.2 [oz_av] ATHEN A ([facility]) Diastolic blood pressure 76 mm[Hg] 76 mm[Hg] HILDA ([facility]) Body height 72 [in_i] 72 [in_i] [facility]DA ([facility]) Body mass index (BMI) [Ratio] 29.7 kg/m2 29.7 k g/m2 [facility] ([facility]) Systolic blood pressure 123 mm[Hg] 123 mm[Hg] A [facility] ([facility]) Body weight 3507.2 [oz_av] 3507.2 [oz_av] ATHEN A ([facility]) Body weight 3507.2 [oz_av] 3507.2 [oz_av] ATHEN A ([facility]) Diastolic blood pressure 76 mm[Hg] 76 mm[Hg] HILDA ([facility]) Body height 72 [in_i] 72 [in_i] H[facility]DA ([facility]) Body mass index (BMI) [Ratio] 29.7 kg/m2 29.7 k g/m2 [facility] ([facility]) Systolic blood pressure 123 mm[Hg] 123 mm[Hg] A [facility] ([facility]) Diastolic blood pressure 76 mm[Hg] 76 mm[Hg] HILDA ([facility]) Diastolic blood pressure 76 mm[Hg] 76 mm[Hg] [facility] ([facility]) Body height 72 [in_i] 72 [in_i] [facility]DA ([facility]) Body mass index (BMI) [Ratio] 29.7 kg/m2 29.7 k g/m2 [facility] ([facility]) Systolic blood pressure 123 mm[Hg] 123 mm[Hg] A [facility] ([facility]) Body weight 3507.2 [oz_av] 3507.2 [oz_av] ATHEN A ([facility]) Body height 72 [in_i] 72 [in_i] HILDA ([facility]) Body mass index (BMI) [Ratio] 29.7 kg/m2 29.7 k g/m2 [facility] ([facility]) Systolic blood pressure 123 mm[Hg] 123 mm[Hg] A [facility]NA ([facility]) Body weight 3507.2 [oz_av] 3507.2 [oz_av] ATHEN A ([facility]) Diastolic blood pressure 76 mm[Hg] 76 mm[Hg] H[facility]DA ([facility]) Body height 72 [in_i] 72 [in_i] H[facility]DA ([facility]) Body mass index (BMI) [Ratio] 29.7 kg/m2 29.7 k g/m2 [facility] ([facility]) Systolic blood pressure 123 mm[Hg] 123 mm[Hg] A [facility] ([facility]) Body weight 3507.2 [oz_av] 3507.2 [oz_av] ATHEN A ([facility]) Diastolic blood pressure 73 mm[Hg] 73 mm[Hg] H[facility]DA ([facility]) Body height 72 [in_i] 72 [in_i] [facility]DA ([facility]) Body mass index (BMI) [Ratio] 30.5 kg/m2 30.5 k g/m2 [facility] ([facility]) Systolic blood pressure 119 mm[Hg] 119 mm[Hg] A [facility] ([facility]) Body weight 3603.2 [oz_av] 3603.2 [oz_av] ATHEN A ([facility]) Diastolic blood pressure 73 mm[Hg] 73 mm[Hg] H[facility]DA ([facility]) Body height 72 [in_i] 72 [in_i] [facility]DA ([facility]) Body mass index (BMI) [Ratio] 30.5 kg/m2 30.5 k g/m2 [facility] ([facility]) Systolic blood pressure 119 mm[Hg] 119 mm[Hg] A [facility] ([facility]) Body weight 3603.2 [oz_av] 3603.2 [oz_av] ATHEN A ([facility]) Diastolic blood pressure 73 mm[Hg] 73 mm[Hg] [facility]DA ([facility]) Body height 72 [in_i] 72 [in_i] [facility]DA ([facility]) Body mass index (BMI) [Ratio] 30.5 kg/m2 30.5 k g/m2 [facility] ([facility]) Systolic blood pressure 119 mm[Hg] 119 mm[Hg] A [facility] ([facility]) Body weight 3603.2 [oz_av] 3603.2 [oz_av] ATHEN A ([facility]) Diastolic blood pressure 73 mm[Hg] 73 mm[Hg] H[facility]DA ([facility]) Body height 72 [in_i] 72 [in_i] H[facility]DA ([facility]) Body mass index (BMI) [Ratio] 30.5 kg/m2 30.5 k g/m2 [facility] ([facility]) Systolic blood pressure 119 mm[Hg] 119 mm[Hg] A [facility] ([facility]) Body weight 3603.2 [oz_av] 3603.2 [oz_av] ATHEN A ([facility]) Diastolic blood pressure 73 mm[Hg] 73 mm[Hg] [facility]DA ([facility]) Body height 72 [in_i] 72 [in_i] [facility]DA ([facility]) Body mass index (BMI) [Ratio] 30.5 kg/m2 30.5 k g/m2 [facility] ([facility]) Systolic blood pressure 119 mm[Hg] 119 mm[Hg] A [facility] ([facility]) Body weight 3603.2 [oz_av] 3603.2 [oz_av] ATHEN A ([facility]) Diastolic blood pressure 73 mm[Hg] 73 mm[Hg] H[facility]DA ([facility]) Body height 72 [in_i] 72 [in_i] HLIDA ([facility]) Body mass index (BMI) [Ratio] 30.5 kg/m2 30.5 k g/m2 [facility] ([facility]) Systolic blood pressure 119 mm[Hg] 119 mm[Hg] A [facility] ([facility]) Body weight 3603.2 [oz_av] 3603.2 [oz_av] ATHEN A ([facility]) Diastolic blood pressure 73 mm[Hg] 73 mm[Hg] [facility]DA ([facility]) Body height 72 [in_i] 72 [in_i] H[facility]DA ([facility]) Body mass index (BMI) [Ratio] 30.5 kg/m2 30.5 k g/m2 [facility] ([facility]) Systolic blood pressure 119 mm[Hg] 119 mm[Hg] A [facility] ([facility]) Body weight 3603.2 [oz_av] 3603.2 [oz_av] ATHEN A ([facility]) Diastolic blood pressure 73 mm[Hg] 73 mm[Hg] [facility]DA ([facility]) Body height 72 [in_i] 72 [in_i] [facility] ([facility]) Body mass index (BMI) [Ratio] 30.5 kg/m2 30.5 k g/m2 [facility] ([facility]) Systolic blood pressure 119 mm[Hg] 119 mm[Hg] A [facility] ([facility]) Body weight 3603.2 [oz_av] 3603.2 [oz_av] ATHEN A ([facility]) Diastolic blood pressure 73 mm[Hg] 73 mm[Hg] [facility]DA ([facility]) Body height 72 [in_i] 72 [in_i] [facility]DA ([facility]) Body mass index (BMI) [Ratio] 30.5 kg/m2 30.5 k g/m2 [facility] ([facility]) Systolic blood pressure 119 mm[Hg] 119 mm[Hg] A [facility] ([facility]) Body weight 3603.2 [oz_av] 3603.2 [oz_av] ATHEN A ([facility]) Diastolic blood pressure 73 mm[Hg] 73 mm[Hg] [facility] ([facility]) Body height 72 [in_i] 72 [in_i] [facility] ([facility]) Body mass index (BMI) [Ratio] 30.5 kg/m2 30.5 k g/m2 [facility] ([facility]) Systolic blood pressure 119 mm[Hg] 119 mm[Hg] A [facility] ([facility]) Body weight 3603.2 [oz_av] 3603.2 [oz_av] ATHEN A ([facility]) Diastolic blood pressure 73 mm[Hg] 73 mm[Hg] [facility] ([facility]) Body height 72 [in_i] 72 [in_i] [facility] ([facility]) Body mass index (BMI) [Ratio] 30.5 kg/m2 30.5 k g/m2 [facility] ([facility]) Systolic blood pressure 119 mm[Hg] 119 mm[Hg] A [facility] ([facility]) Body weight 3603.2 [oz_av] 3603.2 [oz_av] ATHEN A ([facility]) Diastolic blood pressure 73 mm[Hg] 73 mm[Hg] [facility] ([facility]) Body height 72 [in_i] 72 [in_i] [facility] ([facility]) Body mass index (BMI) [Ratio] 30.5 kg/m2 30.5 k g/m2 [facility] ([facility]) Systolic blood pressure 119 mm[Hg] 119 mm[Hg] A [facility] ([facility]) Body weight 3603.2 [oz_av] 3603.2 [oz_av] ATHEN A ([facility]) Diastolic blood pressure 73 mm[Hg] 73 mm[Hg] [facility] ([facility]) Body height 72 [in_i] 72 [in_i] [facility] ([facility]) Body mass index (BMI) [Ratio] 30.5 kg/m2 30.5 k g/m2 [facility] ([facility]) Systolic blood pressure 119 mm[Hg] 119 mm[Hg] A [facility] ([facility]) Body weight 3603.2 [oz_av] 3603.2 [oz_av] ATHEN A ([facility]) Systolic blood pressure 119 mm[Hg] 119 mm[Hg] A [facility] ([facility]) Body height 72 [in_i] 72 [in_i] [facility]DA ([facility]) Body mass index (BMI) [Ratio] 30.5 kg/m2 30.5 k g/m2 [facility] ([facility]) Body weight 3603.2 [oz_av] 3603.2 [oz_av] ATHEN A ([facility]) Diastolic blood pressure 73 mm[Hg] 73 mm[Hg] [facility] ([facility]) Diastolic blood pressure 73 mm[Hg] 73 mm[Hg] [facility] ([facility]) Body height 72 [in_i] 72 [in_i] [facility] ([facility]) Body mass index (BMI) [Ratio] 30.5 kg/m2 30.5 k g/m2 [facility] ([facility]) Systolic blood pressure 119 mm[Hg] 119 mm[Hg] A [facility] ([facility]) Body weight 3603.2 [oz_av] 3603.2 [oz_av] ATHEN A ([facility]) Diastolic blood pressure 73 mm[Hg] 73 mm[Hg] [facility] ([facility]) Body height 72 [in_i] 72 [in_i] [facility] ([facility]) Body mass index (BMI) [Ratio] 30.5 kg/m2 30.5 k g/m2 [facility] ([facility]) Systolic blood pressure 119 mm[Hg] 119 mm[Hg] A [facility] ([facility]) Body weight 3603.2 [oz_av] 3603.2 [oz_av] ATHEN A ([facility]) Diastolic blood pressure 73 mm[Hg] 73 mm[Hg] [facility] ([facility]) Body height 72 [in_i] 72 [in_i] [facility] ([facility]) Body mass index (BMI) [Ratio] 30.5 kg/m2 30.5 k g/m2 [facility] ([facility]) Systolic blood pressure 119 mm[Hg] 119 mm[Hg] A [facility] ([facility]) Body weight 3603.2 [oz_av] 3603.2 [oz_av] ATHEN A ([facility]) Diastolic blood pressure 73 mm[Hg] 73 mm[Hg] [facility] ([facility]) Body height 72 [in_i] 72 [in_i] [facility] ([facility]) Body mass index (BMI) [Ratio] 30.5 kg/m2 30.5 k g/m2 [facility] ([facility]) Systolic blood pressure 119 mm[Hg] 119 mm[Hg] A [facility] ([facility]) Body weight 3603.2 [oz_av] 3603.2 [oz_av] ATHEN A ([facility]) Diastolic blood pressure 73 mm[Hg] 73 mm[Hg] [facility] ([facility]) Diastolic blood pressure 73 mm[Hg] 73 mm[Hg] [facility] ([facility]) Body height 72 [in_i] 72 [in_i] [facility] ([facility]) Body mass index (BMI) [Ratio] 30.5 kg/m2 30.5 k g/m2 HILDA ([facility]) Systolic blood pressure 119 mm[Hg] 119 mm[Hg] A [facility] ([facility]) Body weight 3603.2 [oz_av] 3603.2 [oz_av] ATHEN A ([facility]) Body height 72 [in_i] 72 [in_i] HILDA ([facility]) Body mass index (BMI) [Ratio] 30.5 kg/m2 30.5 k g/m2 HILDA ([facility]) Systolic blood pressure 119 mm[Hg] 119 mm[Hg] A [facility] ([facility]) Body weight 3603.2 [oz_av] 3603.2 [oz_av] ATHEN A ([facility]) Diastolic blood pressure 73 mm[Hg] 73 mm[Hg] HILDA ([facility]) Body height 72 [in_i] 72 [in_i] HILDA ([facility]) Body mass index (BMI) [Ratio] 30.5 kg/m2 30.5 k g/m2 [facility] ([facility]) Systolic blood pressure 119 mm[Hg] 119 mm[Hg] A [facility] ([facility]) Body weight 3603.2 [oz_av] 3603.2 [oz_av] ATHEN A ([facility]) Systolic blood pressure 128 mm[Hg] 128 mm[Hg] A [facility] ([facility]) Body mass index (BMI) [Ratio] 30.3 kg/m2 30.3 k g/m2 HILDA ([facility]) Diastolic blood pressure 81 mm[Hg] 81 mm[Hg] [facility]DA ([facility]) Body height 72 [in_i] 72 [in_i] HILDA ([facility]) Body mass index (BMI) [Ratio] 30.3 kg/m2 30.3 k g/m2 [facility]DA ([facility]) Systolic blood pressure 128 mm[Hg] 128 mm[Hg] A [facility] ([facility]) Body weight 3574.4 [oz_av] 3574.4 [oz_av] ATHEN A ([facility]) Diastolic blood pressure 81 mm[Hg] 81 mm[Hg] [facility]DA ([facility]) Body height 72 [in_i] 72 [in_i] H[facility]DA ([facility]) Body mass index (BMI) [Ratio] 30.3 kg/m2 30.3 k g/m2 [facility] ([facility]) Systolic blood pressure 128 mm[Hg] 128 mm[Hg] A [facility] ([facility]) Body weight 3574.4 [oz_av] 3574.4 [oz_av] ATHEN A ([facility]) Body mass index (BMI) [Ratio] 30.3 kg/m2 30.3 k g/m2 [facility]DA ([facility]) Diastolic blood pressure 81 mm[Hg] 81 mm[Hg] [facility]DA ([facility]) Body height 72 [in_i] 72 [in_i] [facility]DA ([facility]) Systolic blood pressure 128 mm[Hg] 128 mm[Hg] A [facility] ([facility]) Body weight 3574.4 [oz_av] 3574.4 [oz_av] ATHEN A ([facility]) Diastolic blood pressure 81 mm[Hg] 81 mm[Hg] [facility]DA ([facility]) Body height 72 [in_i] 72 [in_i] [facility]DA ([facility]) Body mass index (BMI) [Ratio] 30.3 kg/m2 30.3 k g/m2 [facility] ([facility]) Systolic blood pressure 128 mm[Hg] 128 mm[Hg] A [facility] ([facility]) Body weight 3574.4 [oz_av] 3574.4 [oz_av] ATHEN A ([facility]) Diastolic blood pressure 81 mm[Hg] 81 mm[Hg] [facility]DA ([facility]) Body height 72 [in_i] 72 [in_i] [facility]DA ([facility]) Body mass index (BMI) [Ratio] 30.3 kg/m2 30.3 k g/m2 [facility] ([facility]) Systolic blood pressure 128 mm[Hg] 128 mm[Hg] A [facility] ([facility]) Body weight 3574.4 [oz_av] 3574.4 [oz_av] ATHEN A ([facility]) Diastolic blood pressure 81 mm[Hg] 81 mm[Hg] [facility]DA ([facility]) Body height 72 [in_i] 72 [in_i] [facility]DA ([facility]) Body mass index (BMI) [Ratio] 30.3 kg/m2 30.3 k g/m2 [facility] ([facility]) Systolic blood pressure 128 mm[Hg] 128 mm[Hg] A [facility] ([facility]) Body weight 3574.4 [oz_av] 3574.4 [oz_av] ATHEN A ([facility]) Body mass index (BMI) [Ratio] 30.3 kg/m2 30.3 k g/m2 [facility] ([facility]) Systolic blood pressure 128 mm[Hg] 128 mm[Hg] A [facility] ([facility]) Body weight 3574.4 [oz_av] 3574.4 [oz_av] ATHEN A ([facility]) Diastolic blood pressure 81 mm[Hg] 81 mm[Hg] [facility]DA ([facility]) Body height 72 [in_i] 72 [in_i] [facility]DA ([facility]) Diastolic blood pressure 81 mm[Hg] 81 mm[Hg] [facility]DA ([facility]) Body height 72 [in_i] 72 [in_i] [facility]DA ([facility]) Diastolic blood pressure 81 mm[Hg] 81 mm[Hg] [facility]DA ([facility]) Body height 72 [in_i] 72 [in_i] [facility]DA ([facility]) Body mass index (BMI) [Ratio] 30.3 kg/m2 30.3 k g/m2 [facility] ([facility]) Systolic blood pressure 128 mm[Hg] 128 mm[Hg] A [facility] ([facility]) Body weight 3574.4 [oz_av] 3574.4 [oz_av] ATHEN A ([facility]) Body mass index (BMI) [Ratio] 30.3 kg/m2 30.3 k g/m2 [facility] ([facility]) Systolic blood pressure 128 mm[Hg] 128 mm[Hg] A [facility] ([facility]) Body weight 3574.4 [oz_av] 3574.4 [oz_av] ATHEN A ([facility]) Diastolic blood pressure 81 mm[Hg] 81 mm[Hg] [facility]DA ([facility]) Body height 72 [in_i] 72 [in_i] [facility]DA ([facility]) Body mass index (BMI) [Ratio] 30.3 kg/m2 30.3 k g/m2 [facility] ([facility]) Systolic blood pressure 128 mm[Hg] 128 mm[Hg] A [facility] ([facility]) Body weight 3574.4 [oz_av] 3574.4 [oz_av] ATHEN A ([facility]) Diastolic blood pressure 81 mm[Hg] 81 mm[Hg] [facility]DA ([facility]) Body height 72 [in_i] 72 [in_i] [facility]DA ([facility]) Body weight 3574.4 [oz_av] 3574.4 [oz_av] ATHEN A ([facility]) Diastolic blood pressure 81 mm[Hg] 81 mm[Hg] [facility]DA ([facility]) Body height 72 [in_i] 72 [in_i] [facility]DA ([facility]) Body mass index (BMI) [Ratio] 30.3 kg/m2 30.3 k g/m2 [facility] ([facility]) Systolic blood pressure 128 mm[Hg] 128 mm[Hg] A [facility] ([facility]) Body weight 3574.4 [oz_av] 3574.4 [oz_av] ATHEN A ([facility]) Diastolic blood pressure 81 mm[Hg] 81 mm[Hg] [facility]DA ([facility]) Body height 72 [in_i] 72 [in_i] [facility]DA ([facility]) Body mass index (BMI) [Ratio] 30.3 kg/m2 30.3 k g/m2 [facility] ([facility]) Systolic blood pressure 128 mm[Hg] 128 mm[Hg] A [facility] ([facility]) Body weight 3574.4 [oz_av] 3574.4 [oz_av] ATHEN A ([facility]) Diastolic blood pressure 81 mm[Hg] 81 mm[Hg] [facility]DA ([facility]) Body height 72 [in_i] 72 [in_i] [facility]DA ([facility]) Body mass index (BMI) [Ratio] 30.3 kg/m2 30.3 k g/m2 [facility] ([facility]) Systolic blood pressure 128 mm[Hg] 128 mm[Hg] A [facility] ([facility]) Body weight 3574.4 [oz_av] 3574.4 [oz_av] ATHEN A ([facility]) Diastolic blood pressure 81 mm[Hg] 81 mm[Hg] [facility]DA ([facility]) Body height 72 [in_i] 72 [in_i] [facility]DA ([facility]) Body mass index (BMI) [Ratio] 30.3 kg/m2 30.3 k g/m2 [facility] ([facility]) Systolic blood pressure 128 mm[Hg] 128 mm[Hg] A [facility] ([facility]) Body weight 3574.4 [oz_av] 3574.4 [oz_av] ATHEN A ([facility]) Diastolic blood pressure 81 mm[Hg] 81 mm[Hg] [facility]DA ([facility]) Body height 72 [in_i] 72 [in_i] HILDA ([facility]) Body mass index (BMI) [Ratio] 30.3 kg/m2 30.3 k g/m2 [facility] ([facility]) Systolic blood pressure 128 mm[Hg] 128 mm[Hg] A [facility] ([facility]) Body weight 3574.4 [oz_av] 3574.4 [oz_av] ATHEN A ([facility]) Diastolic blood pressure 81 mm[Hg] 81 mm[Hg] [facility]DA ([facility]) Body height 72 [in_i] 72 [in_i] HILDA ([facility]) Body mass index (BMI) [Ratio] 30.3 kg/m2 30.3 k g/m2 [facility] ([facility]) Systolic blood pressure 128 mm[Hg] 128 mm[Hg] A [facility] ([facility]) Body weight 3574.4 [oz_av] 3574.4 [oz_av] ATHEN A ([facility]) Diastolic blood pressure 81 mm[Hg] 81 mm[Hg] HILDA ([facility]) Body height 72 [in_i] 72 [in_i] HILDA ([facility]) Body mass index (BMI) [Ratio] 30.3 kg/m2 30.3 k g/m2 [facility] ([facility]) Systolic blood pressure 128 mm[Hg] 128 mm[Hg] A [facility] ([facility]) Body weight 3574.4 [oz_av] 3574.4 [oz_av] ATHEN A ([facility]) Diastolic blood pressure 81 mm[Hg] 81 mm[Hg] [facility]DA ([facility]) Body height 72 [in_i] 72 [in_i] [facility]DA ([facility]) Body mass index (BMI) [Ratio] 30.3 kg/m2 30.3 k g/m2 [facility] ([facility]) Systolic blood pressure 128 mm[Hg] 128 mm[Hg] A [facility] ([facility]) Body weight 3574.4 [oz_av] 3574.4 [oz_av] ATHEN A ([facility]) Diastolic blood pressure 81 mm[Hg] 81 mm[Hg] H[facility]DA ([facility]) Body height 72 [in_i] 72 [in_i] HILDA ([facility]) Body mass index (BMI) [Ratio] 30.3 kg/m2 30.3 k g/m2 [facility] ([facility]) Systolic blood pressure 128 mm[Hg] 128 mm[Hg] A [facility] ([facility]) Body weight 3574.4 [oz_av] 3574.4 [oz_av] ATHEN A ([facility]) Diastolic blood pressure 81 mm[Hg] 81 mm[Hg] HILDA ([facility]) Body height 72 [in_i] 72 [in_i] HILDA ([facility]) Body mass index (BMI) [Ratio] 30.3 kg/m2 30.3 k g/m2 [facility] ([facility]) Systolic blood pressure 128 mm[Hg] 128 mm[Hg] A [facility] ([facility]) Body weight 3574.4 [oz_av] 3574.4 [oz_av] ATHEN A ([facility]) Diastolic blood pressure 81 mm[Hg] 81 mm[Hg] H[facility]DA ([facility]) Body height 72 [in_i] 72 [in_i] HILDA ([facility]) Body mass index (BMI) [Ratio] 30.3 kg/m2 30.3 k g/m2 [facility] ([facility]) Systolic blood pressure 128 mm[Hg] 128 mm[Hg] A [facility] ([facility]) Body weight 3574.4 [oz_av] 3574.4 [oz_av] ATHEN A ([facility]) Diastolic blood pressure 81 mm[Hg] 81 mm[Hg] [facility]DA ([facility]) Body height 72 [in_i] 72 [in_i] HILDA ([facility]) Body mass index (BMI) [Ratio] 30.3 kg/m2 30.3 k g/m2 [facility] ([facility]) Systolic blood pressure 128 mm[Hg] 128 mm[Hg] A [facility] ([facility]) Body weight 3574.4 [oz_av] 3574.4 [oz_av] ATHEN A ([facility]) Diastolic blood pressure 82 mm[Hg] 82 mm[Hg] H[facility]DA ([facility]) Diastolic blood pressure 81 mm[Hg] 81 mm[Hg] H[facility]DA ([facility]) Body height 72 [in_i] 72 [in_i] [facility]DA ([facility]) Body mass index (BMI) [Ratio] 30.5 kg/m2 30.5 k g/m2 [facility] ([facility]) Systolic blood pressure 127 mm[Hg] 127 mm[Hg] A [facility] ([facility]) Systolic blood pressure 145 mm[Hg] 145 mm[Hg] A [facility] ([facility]) Body weight 3596.8 [oz_av] 3596.8 [oz_av] ATHEN A ([facility]) Diastolic blood pressure 82 mm[Hg] 82 mm[Hg] [facility]DA ([facility]) Diastolic blood pressure 81 mm[Hg] 81 mm[Hg] [facility]DA ([facility]) Body height 72 [in_i] 72 [in_i] HILDA ([facility]) Body mass index (BMI) [Ratio] 30.5 kg/m2 30.5 k g/m2 [facility] ([facility]) Systolic blood pressure 127 mm[Hg] 127 mm[Hg] A [facility] ([facility]) Systolic blood pressure 145 mm[Hg] 145 mm[Hg] A [facility] ([facility]) Body weight 3596.8 [oz_av] 3596.8 [oz_av] ATHEN A ([facility]) Diastolic blood pressure 82 mm[Hg] 82 mm[Hg] H[facility]DA ([facility]) Diastolic blood pressure 81 mm[Hg] 81 mm[Hg] [facility]DA ([facility]) Body height 72 [in_i] 72 [in_i] H[facility]DA ([facility]) Body mass index (BMI) [Ratio] 30.5 kg/m2 30.5 k g/m2 [facility] ([facility]) Systolic blood pressure 127 mm[Hg] 127 mm[Hg] A [facility] ([facility]) Systolic blood pressure 145 mm[Hg] 145 mm[Hg] A [facility] ([facility]) Body weight 3596.8 [oz_av] 3596.8 [oz_av] ATHEN A ([facility]) Diastolic blood pressure 82 mm[Hg] 82 mm[Hg] [facility]DA ([facility]) Diastolic blood pressure 81 mm[Hg] 81 mm[Hg] [facility]DA ([facility]) Body height 72 [in_i] 72 [in_i] [facility]DA ([facility]) Body mass index (BMI) [Ratio] 30.5 kg/m2 30.5 k g/m2 [facility] ([facility]) Systolic blood pressure 127 mm[Hg] 127 mm[Hg] A [facility] ([facility]) Systolic blood pressure 145 mm[Hg] 145 mm[Hg] A [facility] ([facility]) Body weight 3596.8 [oz_av] 3596.8 [oz_av] ATHEN A ([facility]) Diastolic blood pressure 82 mm[Hg] 82 mm[Hg] [facility]DA ([facility]) Diastolic blood pressure 81 mm[Hg] 81 mm[Hg] [facility]DA ([facility]) Body height 72 [in_i] 72 [in_i] [facility]DA ([facility]) Body mass index (BMI) [Ratio] 30.5 kg/m2 30.5 k g/m2 [facility] ([facility]) Systolic blood pressure 127 mm[Hg] 127 mm[Hg] A [facility] ([facility]) Systolic blood pressure 145 mm[Hg] 145 mm[Hg] A [facility] ([facility]) Body weight 3596.8 [oz_av] 3596.8 [oz_av] ATHEN A ([facility]) Body height 72 [in_i] 72 [in_i] [facility]DA ([facility]) Diastolic blood pressure 82 mm[Hg] 82 mm[Hg] [facility]DA ([facility]) Diastolic blood pressure 81 mm[Hg] 81 mm[Hg] [facility]DA ([facility]) Body mass index (BMI) [Ratio] 30.5 kg/m2 30.5 k g/m2 [facility] ([facility]) Systolic blood pressure 127 mm[Hg] 127 mm[Hg] A [facility] ([facility]) Systolic blood pressure 145 mm[Hg] 145 mm[Hg] A [facility] ([facility]) Body weight 3596.8 [oz_av] 3596.8 [oz_av] ATHEN A ([facility]) Diastolic blood pressure 82 mm[Hg] 82 mm[Hg] [facility]DA ([facility]) Diastolic blood pressure 81 mm[Hg] 81 mm[Hg] [facility]DA ([facility]) Body height 72 [in_i] 72 [in_i] [facility]DA ([facility]) Body mass index (BMI) [Ratio] 30.5 kg/m2 30.5 k g/m2 [facility] ([facility]) Systolic blood pressure 127 mm[Hg] 127 mm[Hg] A [facility] ([facility]) Systolic blood pressure 145 mm[Hg] 145 mm[Hg] A [facility] ([facility]) Body weight 3596.8 [oz_av] 3596.8 [oz_av] ATHEN A ([facility]) Diastolic blood pressure 82 mm[Hg] 82 mm[Hg] [facility]DA ([facility]) Diastolic blood pressure 81 mm[Hg] 81 mm[Hg] [facility]DA ([facility]) Body height 72 [in_i] 72 [in_i] [facility]DA ([facility]) Body mass index (BMI) [Ratio] 30.5 kg/m2 30.5 k g/m2 [facility] ([facility]) Systolic blood pressure 127 mm[Hg] 127 mm[Hg] A [facility] ([facility]) Systolic blood pressure 145 mm[Hg] 145 mm[Hg] A [facility] ([facility]) Body weight 3596.8 [oz_av] 3596.8 [oz_av] ATHEN A ([facility]) Systolic blood pressure 145 mm[Hg] 145 mm[Hg] A [facility] ([facility]) Diastolic blood pressure 82 mm[Hg] 82 mm[Hg] [facility]DA ([facility]) Diastolic blood pressure 81 mm[Hg] 81 mm[Hg] [facility]DA ([facility]) Body height 72 [in_i] 72 [in_i] [facility]DA ([facility]) Body mass index (BMI) [Ratio] 30.5 kg/m2 30.5 k g/m2 [facility] ([facility]) Systolic blood pressure 127 mm[Hg] 127 mm[Hg] A [facility] ([facility]) Body weight 3596.8 [oz_av] 3596.8 [oz_av] ATHEN A ([facility]) Diastolic blood pressure 81 mm[Hg] 81 mm[Hg] [facility]DA ([facility]) Diastolic blood pressure 82 mm[Hg] 82 mm[Hg] [facility]DA ([facility]) Body height 72 [in_i] 72 [in_i] [facility]DA ([facility]) Body mass index (BMI) [Ratio] 30.5 kg/m2 30.5 k g/m2 [facility] ([facility]) Systolic blood pressure 127 mm[Hg] 127 mm[Hg] A [facility]NA ([facility]) Systolic blood pressure 145 mm[Hg] 145 mm[Hg] A [facility] ([facility]) Body weight 3596.8 [oz_av] 3596.8 [oz_av] ATHEN A ([facility]) Diastolic blood pressure 82 mm[Hg] 82 mm[Hg] [facility]DA ([facility]) Diastolic blood pressure 81 mm[Hg] 81 mm[Hg] [facility]DA ([facility]) Body height 72 [in_i] 72 [in_i] [facility]DA ([facility]) Body mass index (BMI) [Ratio] 30.5 kg/m2 30.5 k g/m2 [facility] ([facility]) Systolic blood pressure 127 mm[Hg] 127 mm[Hg] A [facility] ([facility]) Systolic blood pressure 145 mm[Hg] 145 mm[Hg] A [facility] ([facility]) Body weight 3596.8 [oz_av] 3596.8 [oz_av] ATHEN A ([facility]) Diastolic blood pressure 82 mm[Hg] 82 mm[Hg] [facility]DA ([facility]) Diastolic blood pressure 81 mm[Hg] 81 mm[Hg] [facility]DA ([facility]) Body height 72 [in_i] 72 [in_i] H[facility]DA ([facility]) Body mass index (BMI) [Ratio] 30.5 kg/m2 30.5 k g/m2 [facility] ([facility]) Systolic blood pressure 127 mm[Hg] 127 mm[Hg] A THENA ([facility]) Systolic blood pressure 145 mm[Hg] 145 mm[Hg] A [facility] ([facility]) Body weight 3596.8 [oz_av] 3596.8 [oz_av] ATHEN A ([facility]) Diastolic blood pressure 82 mm[Hg] 82 mm[Hg] H[facility]DA ([facility]) Diastolic blood pressure 81 mm[Hg] 81 mm[Hg] [facility]DA ([facility]) Body height 72 [in_i] 72 [in_i] [facility]DA ([facility]) Body mass index (BMI) [Ratio] 30.5 kg/m2 30.5 k g/m2 [facility] ([facility]) Systolic blood pressure 127 mm[Hg] 127 mm[Hg] A [facility]NA ([facility]) Systolic blood pressure 145 mm[Hg] 145 mm[Hg] A [facility] ([facility]) Body weight 3596.8 [oz_av] 3596.8 [oz_av] ATHEN A ([facility]) Diastolic blood pressure 82 mm[Hg] 82 mm[Hg] H[facility]DA ([facility]) Diastolic blood pressure 81 mm[Hg] 81 mm[Hg] [facility]DA ([facility]) Body height 72 [in_i] 72 [in_i] H[facility]DA ([facility]) Body mass index (BMI) [Ratio] 30.5 kg/m2 30.5 k g/m2 [facility] ([facility]) Systolic blood pressure 127 mm[Hg] 127 mm[Hg] A [facility]NA ([facility]) Systolic blood pressure 145 mm[Hg] 145 mm[Hg] A [facility] ([facility]) Body weight 3596.8 [oz_av] 3596.8 [oz_av] ATHEN A ([facility]) Diastolic blood pressure 82 mm[Hg] 82 mm[Hg] [facility]DA ([facility]) Diastolic blood pressure 81 mm[Hg] 81 mm[Hg] [facility]DA ([facility]) Body height 72 [in_i] 72 [in_i] H[facility]DA ([facility]) Body mass index (BMI) [Ratio] 30.5 kg/m2 30.5 k g/m2 [facility] ([facility]) Systolic blood pressure 127 mm[Hg] 127 mm[Hg] A [facility] ([facility]) Systolic blood pressure 145 mm[Hg] 145 mm[Hg] A [facility] ([facility]) Body weight 3596.8 [oz_av] 3596.8 [oz_av] ATHEN A ([facility]) Diastolic blood pressure 82 mm[Hg] 82 mm[Hg] HILAD ([facility]) Diastolic blood pressure 81 mm[Hg] 81 mm[Hg] [facility]DA ([facility]) Body height 72 [in_i] 72 [in_i] [facility]DA ([facility]) Body mass index (BMI) [Ratio] 30.5 kg/m2 30.5 k g/m2 [facility] ([facility]) Systolic blood pressure 127 mm[Hg] 127 mm[Hg] A [facility] ([facility]) Systolic blood pressure 145 mm[Hg] 145 mm[Hg] A [facility] ([facility]) Body weight 3596.8 [oz_av] 3596.8 [oz_av] ATHEN A ([facility]) Diastolic blood pressure 82 mm[Hg] 82 mm[Hg] [facility]DA ([facility]) Diastolic blood pressure 81 mm[Hg] 81 mm[Hg] [facility]DA ([facility]) Body height 72 [in_i] 72 [in_i] [facility]DA ([facility]) Body mass index (BMI) [Ratio] 30.5 kg/m2 30.5 k g/m2 [facility] ([facility]) Systolic blood pressure 127 mm[Hg] 127 mm[Hg] A [facility] ([facility]) Systolic blood pressure 145 mm[Hg] 145 mm[Hg] A [facility] ([facility]) Body weight 3596.8 [oz_av] 3596.8 [oz_av] ATHEN A ([facility]) Diastolic blood pressure 82 mm[Hg] 82 mm[Hg] [facility]DA ([facility]) Diastolic blood pressure 81 mm[Hg] 81 mm[Hg] [facility]DA ([facility]) Body height 72 [in_i] 72 [in_i] [facility]DA ([facility]) Body mass index (BMI) [Ratio] 30.5 kg/m2 30.5 k g/m2 [facility] ([facility]) Systolic blood pressure 127 mm[Hg] 127 mm[Hg] A [facility] ([facility]) Systolic blood pressure 145 mm[Hg] 145 mm[Hg] A [facility] ([facility]) Body weight 3596.8 [oz_av] 3596.8 [oz_av] ATHEN A ([facility]) Diastolic blood pressure 82 mm[Hg] 82 mm[Hg] [facility] [facility]) Diastolic blood pressure 81 mm[Hg] 81 mm[Hg] HILDA ([facility]) Body height 72 [in_i] 72 [in_i] HILDA ([facility]) Body mass index (BMI) [Ratio] 30.5 kg/m2 30.5 k g/m2 HILDA ([facility]) Systolic blood pressure 127 mm[Hg] 127 mm[Hg] A THENA ([facility]) Systolic blood pressure 145 mm[Hg] 145 mm[Hg] A THENA ([facility]) Body weight 3596.8 [oz_av] 3596.8 [oz_av] ATHEN A ([facility]) Body mass index (BMI) [Ratio] 30.5 kg/m2 30.5 k g/m2 HILDA ([facility]) Diastolic blood pressure 82 mm[Hg] 82 mm[Hg] HILDA ([facility]) Diastolic blood pressure 81 mm[Hg] 81 mm[Hg] HILDA ([facility]) Body height 72 [in_i] 72 [in_i] HILDA ([facility]) Systolic blood pressure 127 mm[Hg] 127 mm[Hg] A [facility] ([facility]) Systolic blood pressure 145 mm[Hg] 145 mm[Hg] A [facility] ([facility]) Body weight 3596.8 [oz_av] 3596.8 [oz_av] ATHEN A ([facility]) Diastolic blood pressure 82 mm[Hg] 82 mm[Hg] HILDA ([facility]) Diastolic blood pressure 81 mm[Hg] 81 mm[Hg] HILDA ([facility]) Body height 72 [in_i] 72 [in_i] HILDA ([facility]) Body mass index (BMI) [Ratio] 30.5 kg/m2 30.5 k g/m2 HILDA ([facility]) Systolic blood pressure 127 mm[Hg] 127 mm[Hg] A THENA ([facility]) Systolic blood pressure 145 mm[Hg] 145 mm[Hg] A [facility] ([facility]) Body weight 3596.8 [oz_av] 3596.8 [oz_av] ATHEN A ([facility]) Systolic blood pressure 127 mm[Hg] 127 mm[Hg] A THENA ([facility]) Systolic blood pressure 145 mm[Hg] 145 mm[Hg] A THENA ([facility]) Body weight 3596.8 [oz_av] 3596.8 [oz_av] ATHEN A ([facility]) Diastolic blood pressure 82 mm[Hg] 82 mm[Hg] HILDA ([facility]) Diastolic blood pressure 81 mm[Hg] 81 mm[Hg] HILDA ([facility]) Body height 72 [in_i] 72 [in_i] HILDA ([facility]) Body mass index (BMI) [Ratio] 30.5 kg/m2 30.5 k g/m2 HILDA ([facility]) Body weight 3596.8 [oz_av] 3596.8 [oz_av] ATHEN A ([facility]) Diastolic blood pressure 82 mm[Hg] 82 mm[Hg] HILDA ([facility]) Diastolic blood pressure 81 mm[Hg] 81 mm[Hg] HILDA ([facility]) Body height 72 [in_i] 72 [in_i] HILDA ([facility]) Body mass index (BMI) [Ratio] 30.5 kg/m2 30.5 k g/m2 HILDA ([facility]) Systolic blood pressure 127 mm[Hg] 127 mm[Hg] A [facility] ([facility]) Systolic blood pressure 145 mm[Hg] 145 mm[Hg] A [facility] ([facility]) Diastolic blood pressure 82 mm[Hg] 82 mm[Hg] HILDA ([facility]) Diastolic blood pressure 81 mm[Hg] 81 mm[Hg] HILDA ([facility]) Body height 72 [in_i] 72 [in_i] HILDA ([facility]) Body mass index (BMI) [Ratio] 30.5 kg/m2 30.5 k g/m2 HILDA ([facility]) Systolic blood pressure 127 mm[Hg] 127 mm[Hg] A THENA ([facility]) Systolic blood pressure 145 mm[Hg] 145 mm[Hg] A THENA ([facility]) Body weight 3596.8 [oz_av] 3596.8 [oz_av] ATHEN A ([facility]) Diastolic blood pressure 82 mm[Hg] 82 mm[Hg] HILDA ([facility]) Diastolic blood pressure 81 mm[Hg] 81 mm[Hg] HILDA ([facility]) Body height 72 [in_i] 72 [in_i] HILDA ([facility]) Body mass index (BMI) [Ratio] 30.5 kg/m2 30.5 k g/m2 HILDA ([facility]) Systolic blood pressure 127 mm[Hg] 127 mm[Hg] A THENA ([facility]) Systolic blood pressure 145 mm[Hg] 145 mm[Hg] A THENA ([facility]) Body weight 3596.8 [oz_av] 3596.8 [oz_av] ATHEN A ([facility]) Diastolic blood pressure 82 mm[Hg] 82 mm[Hg] HILDA ([facility]) Diastolic blood pressure 81 mm[Hg] 81 mm[Hg] HILDA ([facility]) Body height 72 [in_i] 72 [in_i] HILDA ([facility]) Body mass index (BMI) [Ratio] 30.5 kg/m2 30.5 k g/m2 HILDA ([facility]) Systolic blood pressure 127 mm[Hg] 127 mm[Hg] A [facility] ([facility]) Systolic blood pressure 145 mm[Hg] 145 mm[Hg] A [facility] ([facility]) Body weight 3596.8 [oz_av] 3596.8 [oz_av] ATHEN A ([facility]) Diastolic blood pressure 82 mm[Hg] 82 mm[Hg] HILDA ([facility]) Diastolic blood pressure 81 mm[Hg] 81 mm[Hg] HILDA ([facility]) Body height 72 [in_i] 72 [in_i] HILDA ([facility]) Body mass index (BMI) [Ratio] 30.5 kg/m2 30.5 k g/m2 HILDA ([facility]) Systolic blood pressure 127 mm[Hg] 127 mm[Hg] A THENA ([facility]) Systolic blood pressure 145 mm[Hg] 145 mm[Hg] A THENA ([facility]) Body weight 3596.8 [oz_av] 3596.8 [oz_av] ATHEN A ([facility]) Respiratory rate 16 /min 16 /min MEDJUAN RAMON ( [facility]) Body weight 222.00 [lb_av] 222.00 [lb_av] CELESTINO T ([facility]) Body height 72 [in_i] 72 [in_i] RANGEL ([facility]) 6'0" Body mass index (BMI) [Ratio] 30.1 kg/m2 30.1 k g/m2 MEDJUAN RAMON ([facility]) Heart rate 52 /min 52 /min MEDENT ([facility]) regular Systolic blood pressure--sitting 108 mm[Hg] 108 mm[Hg] MEDENT ([facility]) large cuff, Ra; 110/72 LA Diastolic blood pressure--sitting 68 mm[Hg] 68 mm[Hg] MEDENT ([facility]) large cuff, Ra; 110/72 LA Systolic blood pressure--supine 108 mm[Hg] 108 mm[Hg] MEDENT ([facility]) Ra Diastolic blood pressure--supine 68 mm[Hg] 68 mm[Hg] MEDENT ([facility]) Ra Body mass index (BMI) [Ratio] 30.2 kg/m2 30.2 k g/m2 HILDA ([facility]) Body height 72 [in_i] 72 [in_i] HILDA ([facility]) Diastolic blood pressure 81 mm[Hg] 81 mm[Hg] HILDA ([facility]) Systolic blood pressure 120 mm[Hg] 120 mm[Hg] A [facility] ([facility]) Body weight 3568 [oz_av] 3568 [oz_av] HILDA ([facility]) Diastolic blood pressure 81 mm[Hg] 81 mm[Hg] HILDA ([facility]) Body height 72 [in_i] 72 [in_i] HILDA ([facility]) Body mass index (BMI) [Ratio] 30.2 kg/m2 30.2 k g/m2 HILDA ([facility]) Systolic blood pressure 120 mm[Hg] 120 mm[Hg] A [facility] ([facility]) Body weight 3568 [oz_av] 3568 [oz_av] HILDA ([facility]) Diastolic blood pressure 81 mm[Hg] 81 mm[Hg] HILDA ([facility]) Body height 72 [in_i] 72 [in_i] HILDA ([facility]) Body mass index (BMI) [Ratio] 30.2 kg/m2 30.2 k g/m2 HILDA ([facility]) Systolic blood pressure 120 mm[Hg] 120 mm[Hg] A [facility] ([facility]) Body weight 3568 [oz_av] 3568 [oz_av] HILDA ([facility]) Diastolic blood pressure 81 mm[Hg] 81 mm[Hg] HILDA ([facility]) Body height 72 [in_i] 72 [in_i] HILDA ([facility]) Body mass index (BMI) [Ratio] 30.2 kg/m2 30.2 k g/m2 HILDA ([facility]) Systolic blood pressure 120 mm[Hg] 120 mm[Hg] A THENA ([facility]) Body weight 3568 [oz_av] 3568 [oz_av] HILDA ([facility]) Diastolic blood pressure 81 mm[Hg] 81 mm[Hg] HILDA ([facility]) Body height 72 [in_i] 72 [in_i] HILDA ([facility]) Body mass index (BMI) [Ratio] 30.2 kg/m2 30.2 k g/m2 HILDA ([facility]) Systolic blood pressure 120 mm[Hg] 120 mm[Hg] A THENA ([facility]) Body weight 3568 [oz_av] 3568 [oz_av] HILDA ([facility]) Diastolic blood pressure 81 mm[Hg] 81 mm[Hg] HILDA ([facility]) Body height 72 [in_i] 72 [in_i] HILDA ([facility]) Body mass index (BMI) [Ratio] 30.2 kg/m2 30.2 k g/m2 HILDA ([facility]) Systolic blood pressure 120 mm[Hg] 120 mm[Hg] A THENA ([facility]) Body weight 3568 [oz_av] 3568 [oz_av] HILDA ([facility]) Body weight 3568 [oz_av] 3568 [oz_av] HILDA ([facility]) Diastolic blood pressure 81 mm[Hg] 81 mm[Hg] HILDA ([facility]) Body height 72 [in_i] 72 [in_i] HILDA ([facility]) Body mass index (BMI) [Ratio] 30.2 kg/m2 30.2 k g/m2 HILDA ([facility]) Systolic blood pressure 120 mm[Hg] 120 mm[Hg] A [facility] ([facility]) Diastolic blood pressure 81 mm[Hg] 81 mm[Hg] HILDA ([facility]) Body height 72 [in_i] 72 [in_i] HILDA ([facility]) Body mass index (BMI) [Ratio] 30.2 kg/m2 30.2 k g/m2 HILDA ([facility]) Systolic blood pressure 120 mm[Hg] 120 mm[Hg] A THENA ([facility]) Body weight 3568 [oz_av] 3568 [oz_av] HILDA ([facility]) Body weight 3568 [oz_av] 3568 [oz_av] HILDA ([facility]) Diastolic blood pressure 81 mm[Hg] 81 mm[Hg] HILDA ([facility]) Body height 72 [in_i] 72 [in_i] HILDA ([facility]) Body mass index (BMI) [Ratio] 30.2 kg/m2 30.2 k g/m2 HILDA ([facility]) Systolic blood pressure 120 mm[Hg] 120 mm[Hg] A [facility] ([facility]) Diastolic blood pressure 81 mm[Hg] 81 mm[Hg] HILDA ([facility]) Body height 72 [in_i] 72 [in_i] HILDA ([facility]) Body mass index (BMI) [Ratio] 30.2 kg/m2 30.2 k g/m2 HILDA ([facility]) Systolic blood pressure 120 mm[Hg] 120 mm[Hg] A THENA ([facility]) Body weight 3568 [oz_av] 3568 [oz_av] HILDA ([facility]) Diastolic blood pressure 81 mm[Hg] 81 mm[Hg] HILDA ([facility]) Body height 72 [in_i] 72 [in_i] HILAD ([facility]) Body mass index (BMI) [Ratio] 30.2 kg/m2 30.2 k g/m2 HILDA ([facility]) Systolic blood pressure 120 mm[Hg] 120 mm[Hg] A THENA ([facility]) Body weight 3568 [oz_av] 3568 [oz_av] HILDA ([facility]) Diastolic blood pressure 81 mm[Hg] 81 mm[Hg] HILDA ([facility]) Body height 72 [in_i] 72 [in_i] HILDA ([facility]) Body mass index (BMI) [Ratio] 30.2 kg/m2 30.2 k g/m2 HILDA ([facility]) Systolic blood pressure 120 mm[Hg] 120 mm[Hg] A THENA ([facility]) Body weight 3568 [oz_av] 3568 [oz_av] HILDA ([facility]) Diastolic blood pressure 81 mm[Hg] 81 mm[Hg] HILDA ([facility]) Body height 72 [in_i] 72 [in_i] HILDA ([facility]) Body mass index (BMI) [Ratio] 30.2 kg/m2 30.2 k g/m2 HILDA ([facility]) Systolic blood pressure 120 mm[Hg] 120 mm[Hg] A THENA ([facility]) Body weight 3568 [oz_av] 3568 [oz_av] HILDA ([facility]) Diastolic blood pressure 81 mm[Hg] 81 mm[Hg] HILDA ([facility]) Body height 72 [in_i] 72 [in_i] HILDA ([facility]) Body mass index (BMI) [Ratio] 30.2 kg/m2 30.2 k g/m2 HILDA ([facility]) Systolic blood pressure 120 mm[Hg] 120 mm[Hg] A THENA ([facility]) Body weight 3568 [oz_av] 3568 [oz_av] HILDA ([facility]) Body weight 3568 [oz_av] 3568 [oz_av] HILDA ([facility]) Diastolic blood pressure 81 mm[Hg] 81 mm[Hg] HILDA ([facility]) Body height 72 [in_i] 72 [in_i] HILDA ([facility]) Body mass index (BMI) [Ratio] 30.2 kg/m2 30.2 k g/m2 HILDA ([facility]) Systolic blood pressure 120 mm[Hg] 120 mm[Hg] A [facility] ([facility]) Diastolic blood pressure 81 mm[Hg] 81 mm[Hg] HILDA ([facility]) Body height 72 [in_i] 72 [in_i] HILDA ([facility]) Body mass index (BMI) [Ratio] 30.2 kg/m2 30.2 k g/m2 HILDA ([facility]) Systolic blood pressure 120 mm[Hg] 120 mm[Hg] A THENA ([facility]) Body weight 3568 [oz_av] 3568 [oz_av] HILDA ([facility]) Diastolic blood pressure 81 mm[Hg] 81 mm[Hg] HILDA ([facility]) Body height 72 [in_i] 72 [in_i] HILDA ([facility]) Body mass index (BMI) [Ratio] 30.2 kg/m2 30.2 k g/m2 HILDA ([facility]) Systolic blood pressure 120 mm[Hg] 120 mm[Hg] A THENA ([facility]) Body weight 3568 [oz_av] 3568 [oz_av] HILDA ([facility]) Diastolic blood pressure 81 mm[Hg] 81 mm[Hg] HILDA ([facility]) Body height 72 [in_i] 72 [in_i] HILDA ([facility]) Body mass index (BMI) [Ratio] 30.2 kg/m2 30.2 k g/m2 HILDA ([facility]) Systolic blood pressure 120 mm[Hg] 120 mm[Hg] A THENA ([facility]) Body weight 3568 [oz_av] 3568 [oz_av] HILDA ([facility]) Diastolic blood pressure 81 mm[Hg] 81 mm[Hg] HILDA ([facility]) Body height 72 [in_i] 72 [in_i] HILDA ([facility]) Diastolic blood pressure 81 mm[Hg] 81 mm[Hg] HILDA ([facility]) Body height 72 [in_i] 72 [in_i] HILDA ([facility]) Body mass index (BMI) [Ratio] 30.2 kg/m2 30.2 k g/m2 HILDA ([facility]) Systolic blood pressure 120 mm[Hg] 120 mm[Hg] A [facility] ([facility]) Body weight 3568 [oz_av] 3568 [oz_av] HILDA ([facility]) Body mass index (BMI) [Ratio] 30.2 kg/m2 30.2 k g/m2 HILDA ([facility]) Systolic blood pressure 120 mm[Hg] 120 mm[Hg] A [facility] ([facility]) Body weight 3568 [oz_av] 3568 [oz_av] HILDA ([facility]) Diastolic blood pressure 81 mm[Hg] 81 mm[Hg] HILDA ([facility]) Body height 72 [in_i] 72 [in_i] HILDA ([facility]) Body mass index (BMI) [Ratio] 30.2 kg/m2 30.2 k g/m2 HILDA ([facility]) Systolic blood pressure 120 mm[Hg] 120 mm[Hg] A [facility] ([facility]) Body weight 3568 [oz_av] 3568 [oz_av] HILDA ([facility]) Diastolic blood pressure 81 mm[Hg] 81 mm[Hg] HILDA ([facility]) Body height 72 [in_i] 72 [in_i] HILDA ([facility]) Body mass index (BMI) [Ratio] 30.2 kg/m2 30.2 k g/m2 HILDA ([facility]) Systolic blood pressure 120 mm[Hg] 120 mm[Hg] A [facility] ([facility]) Body weight 3568 [oz_av] 3568 [oz_av] HILDA ([facility]) Systolic blood pressure 120 mm[Hg] 120 mm[Hg] A THENA ([facility]) Body weight 3568 [oz_av] 3568 [oz_av] HILDA ([facility]) Diastolic blood pressure 81 mm[Hg] 81 mm[Hg] HILDA ([facility]) Body height 72 [in_i] 72 [in_i] HILDA ([facility]) Body mass index (BMI) [Ratio] 30.2 kg/m2 30.2 k g/m2 HILDA ([facility]) Diastolic blood pressure 81 mm[Hg] 81 mm[Hg] HILDA ([facility]) Body height 72 [in_i] 72 [in_i] HILDA ([facility]) Body mass index (BMI) [Ratio] 30.2 kg/m2 30.2 k g/m2 HILDA ([facility]) Systolic blood pressure 120 mm[Hg] 120 mm[Hg] A [facility] ([facility]) Body weight 3568 [oz_av] 3568 [oz_av] HILDA ([facility]) Diastolic blood pressure 81 mm[Hg] 81 mm[Hg] HILDA ([facility]) Body height 72 [in_i] 72 [in_i] HILDA ([facility]) Body mass index (BMI) [Ratio] 30.2 kg/m2 30.2 k g/m2 HILDA ([facility]) Systolic blood pressure 120 mm[Hg] 120 mm[Hg] A [facility] ([facility]) Body weight 3568 [oz_av] 3568 [oz_av] HILDA ([facility]) Systolic blood pressure 120 mm[Hg] 120 mm[Hg] A THENA ([facility]) Body weight 3568 [oz_av] 3568 [oz_av] HILDA ([facility]) Diastolic blood pressure 81 mm[Hg] 81 mm[Hg] HILDA ([facility]) Body height 72 [in_i] 72 [in_i] HILDA ([facility]) Body mass index (BMI) [Ratio] 30.2 kg/m2 30.2 k g/m2 HILDA ([facility]) Body mass index (BMI) [Ratio] 30.2 kg/m2 30.2 k g/m2 HILDA ([facility]) Systolic blood pressure 120 mm[Hg] 120 mm[Hg] A [facility] ([facility]) Body weight 3568 [oz_av] 3568 [oz_av] HILDA ([facility]) Diastolic blood pressure 81 mm[Hg] 81 mm[Hg] HILDA ([facility]) Body height 72 [in_i] 72 [in_i] HILDA ([facility]) Diastolic blood pressure 81 mm[Hg] 81 mm[Hg] HILDA ([facility]) Body height 72 [in_i] 72 [in_i] HILDA ([facility]) Body mass index (BMI) [Ratio] 30.2 kg/m2 30.2 k g/m2 HILDA ([facility]) Systolic blood pressure 120 mm[Hg] 120 mm[Hg] A [facility] ([facility]) Body weight 3568 [oz_av] 3568 [oz_av] HILDA ([facility]) Diastolic blood pressure 81 mm[Hg] 81 mm[Hg] HILDA ([facility]) Body height 72 [in_i] 72 [in_i] HILDA ([facility]) Body mass index (BMI) [Ratio] 30.2 kg/m2 30.2 k g/m2 HILDA ([facility]) Systolic blood pressure 120 mm[Hg] 120 mm[Hg] A [facility] ([facility]) Body weight 3568 [oz_av] 3568 [oz_av] HILDA ([facility]) Diastolic blood pressure 81 mm[Hg] 81 mm[Hg] HILDA ([facility]) Body height 72 [in_i] 72 [in_i] HILDA ([facility]) Body mass index (BMI) [Ratio] 30.2 kg/m2 30.2 k g/m2 HILDA ([facility]) Systolic blood pressure 120 mm[Hg] 120 mm[Hg] A THENA ([facility]) Body weight 3568 [oz_av] 3568 [oz_av] HILDA ([facility]) Diastolic blood pressure 81 mm[Hg] 81 mm[Hg] HILDA ([facility]) Body height 72 [in_i] 72 [in_i] HILDA ([facility]) Body mass index (BMI) [Ratio] 30.2 kg/m2 30.2 k g/m2 HILDA ([facility]) Systolic blood pressure 120 mm[Hg] 120 mm[Hg] A [facility] ([facility]) Body weight 3568 [oz_av] 3568 [oz_av] HILDA ([facility]) Diastolic blood pressure 81 mm[Hg] 81 mm[Hg] HILDA ([facility]) Body height 72 [in_i] 72 [in_i] HILDA ([facility]) Body mass index (BMI) [Ratio] 30.2 kg/m2 30.2 k g/m2 HILDA ([facility]) Systolic blood pressure 120 mm[Hg] 120 mm[Hg] A THENA ([facility]) Body weight 3568 [oz_av] 3568 [oz_av] HILDA ([facility]) Diastolic blood pressure 81 mm[Hg] 81 mm[Hg] HILDA ([facility]) Body height 72 [in_i] 72 [in_i] HILDA ([facility]) Body mass index (BMI) [Ratio] 30.2 kg/m2 30.2 k g/m2 HILDA ([facility]) Systolic blood pressure 120 mm[Hg] 120 mm[Hg] A LUISA ([facility]) Body weight 3568 [oz_av] 3568 [oz_av] HILDA ([facility]) Diastolic blood pressure 86 mm[Hg] 86 mm[Hg] HILDA ([facility]) Body height 72 [in_i] 72 [in_i] HILDA ([facility]) Body mass index (BMI) [Ratio] 30.4 kg/m2 30.4 k g/m2 HILDA ([facility]) Systolic blood pressure 130 mm[Hg] 130 mm[Hg] A THENA ([facility]) Body weight 3587.2 [oz_av] 3587.2 [oz_av] ATHEN A ([facility]) Diastolic blood pressure 86 mm[Hg] 86 mm[Hg] HILDA ([facility]) Body height 72 [in_i] 72 [in_i] HILDA ([facility]) Body mass index (BMI) [Ratio] 30.4 kg/m2 30.4 k g/m2 HILDA ([facility]) Systolic blood pressure 130 mm[Hg] 130 mm[Hg] A [facility] ([facility]) Body weight 3587.2 [oz_av] 3587.2 [oz_av] ATHEN A ([facility]) Diastolic blood pressure 86 mm[Hg] 86 mm[Hg] HILDA ([facility]) Body height 72 [in_i] 72 [in_i] HILDA ([facility]) Body mass index (BMI) [Ratio] 30.4 kg/m2 30.4 k g/m2 HILDA ([facility]) Systolic blood pressure 130 mm[Hg] 130 mm[Hg] A THENA ([facility]) Body weight 3587.2 [oz_av] 3587.2 [oz_av] ATHEN A ([facility]) Diastolic blood pressure 86 mm[Hg] 86 mm[Hg] HILDA ([facility]) Body height 72 [in_i] 72 [in_i] HILDA ([facility]) Body mass index (BMI) [Ratio] 30.4 kg/m2 30.4 k g/m2 HILDA ([facility]) Systolic blood pressure 130 mm[Hg] 130 mm[Hg] A THENA ([facility]) Body weight 3587.2 [oz_av] 3587.2 [oz_av] ATHEN A ([facility]) Diastolic blood pressure 86 mm[Hg] 86 mm[Hg] HILDA ([facility] [facility]) Body weight 3587.2 [oz_av] 3587.2 [oz_av] ATHEN A ([facility]) Body height 72 [in_i] 72 [in_i] HILDA ([facility]) Body mass index (BMI) [Ratio] 30.4 kg/m2 30.4 k g/m2 HILDA ([facility]) Systolic blood pressure 130 mm[Hg] 130 mm[Hg] A THENA ([facility]) Diastolic blood pressure 86 mm[Hg] 86 mm[Hg] HILDA ([facility]) Body height 72 [in_i] 72 [in_i] HILDA ([facility]) Body mass index (BMI) [Ratio] 30.4 kg/m2 30.4 k g/m2 HILDA ([facility]) Systolic blood pressure 130 mm[Hg] 130 mm[Hg] A THENA ([facility]) Body weight 3587.2 [oz_av] 3587.2 [oz_av] ATHEN A ([facility]) Diastolic blood pressure 86 mm[Hg] 86 mm[Hg] HILDA ([facility]) Body height 72 [in_i] 72 [in_i] HILDA ([facility]) Body mass index (BMI) [Ratio] 30.4 kg/m2 30.4 k g/m2 HILDA ([facility]) Systolic blood pressure 130 mm[Hg] 130 mm[Hg] A [facility] ([facility]) Body weight 3587.2 [oz_av] 3587.2 [oz_av] ATHEN A ([facility]) Diastolic blood pressure 86 mm[Hg] 86 mm[Hg] HILDA ([facility]) Body height 72 [in_i] 72 [in_i] HILDA ([facility]) Body mass index (BMI) [Ratio] 30.4 kg/m2 30.4 k g/m2 HILDA ([facility]) Systolic blood pressure 130 mm[Hg] 130 mm[Hg] A THENA ([facility]) Body weight 3587.2 [oz_av] 3587.2 [oz_av] ATHEN A ([facility]) Diastolic blood pressure 86 mm[Hg] 86 mm[Hg] HILDA ([facility]) Body height 72 [in_i] 72 [in_i] HILDA ([facility]) Body mass index (BMI) [Ratio] 30.4 kg/m2 30.4 k g/m2 HILDA ([facility]) Systolic blood pressure 130 mm[Hg] 130 mm[Hg] A THENA ([facility]) Body weight 3587.2 [oz_av] 3587.2 [oz_av] ATHEN A ([facility]) Diastolic blood pressure 86 mm[Hg] 86 mm[Hg] HILDA ([facility]) Body height 72 [in_i] 72 [in_i] HILDA ([facility]) Body mass index (BMI) [Ratio] 30.4 kg/m2 30.4 k g/m2 HILDA ([facility]) Systolic blood pressure 130 mm[Hg] 130 mm[Hg] A THENA ([facility]) Body weight 3587.2 [oz_av] 3587.2 [oz_av] ATHEN A ([facility]) Diastolic blood pressure 86 mm[Hg] 86 mm[Hg] HILDA ([facility]) Body height 72 [in_i] 72 [in_i] HILDA ([facility]) Body mass index (BMI) [Ratio] 30.4 kg/m2 30.4 k g/m2 HILDA ([facility]) Systolic blood pressure 130 mm[Hg] 130 mm[Hg] A LUISA ([facility]) Body weight 3587.2 [oz_av] 3587.2 [oz_av] ATHEN A ([facility]) Diastolic blood pressure 86 mm[Hg] 86 mm[Hg] HILDA ([facility]) Body height 72 [in_i] 72 [in_i] HILDA ([facility]) Body mass index (BMI) [Ratio] 30.4 kg/m2 30.4 k g/m2 HILDA ([facility]) Systolic blood pressure 130 mm[Hg] 130 mm[Hg] A LUISA ([facility]) Body weight 3587.2 [oz_av] 3587.2 [oz_av] ATHEN A ([facility]) Diastolic blood pressure 86 mm[Hg] 86 mm[Hg] HILDA ([facility]) Body height 72 [in_i] 72 [in_i] HILDA ([facility]) Body mass index (BMI) [Ratio] 30.4 kg/m2 30.4 k g/m2 HILDA ([facility]) Systolic blood pressure 130 mm[Hg] 130 mm[Hg] A THENA ([facility]) Body weight 3587.2 [oz_av] 3587.2 [oz_av] ATHEN A ([facility]) Diastolic blood pressure 86 mm[Hg] 86 mm[Hg] HILDA ([facility]) Body height 72 [in_i] 72 [in_i] HILDA ([facility]) Body mass index (BMI) [Ratio] 30.4 kg/m2 30.4 k g/m2 HILDA ([facility]) Systolic blood pressure 130 mm[Hg] 130 mm[Hg] A LUISA ([facility]) Body weight 3587.2 [oz_av] 3587.2 [oz_av] ATHEN A ([facility]) Diastolic blood pressure 86 mm[Hg] 86 mm[Hg] HILDA ([facility]) Body height 72 [in_i] 72 [in_i] HILDA ([facility]) Body mass index (BMI) [Ratio] 30.4 kg/m2 30.4 k g/m2 HILDA ([facility]) Systolic blood pressure 130 mm[Hg] 130 mm[Hg] A MOIZ ([facility]) Body weight 3587.2 [oz_av] 3587.2 [oz_av] ATHEN A ([facility]) Diastolic blood pressure 86 mm[Hg] 86 mm[Hg] HILDA ([facility]) Body height 72 [in_i] 72 [in_i] HILDA ([facility]) Body mass index (BMI) [Ratio] 30.4 kg/m2 30.4 k g/m2 HILDA ([facility]) Systolic blood pressure 130 mm[Hg] 130 mm[Hg] A MOIZ ([facility]) Body weight 3587.2 [oz_av] 3587.2 [oz_av] ATHEN A ([facility]) Diastolic blood pressure 86 mm[Hg] 86 mm[Hg] HILDA ([facility]) Body height 72 [in_i] 72 [in_i] HILDA ([facility]) Body mass index (BMI) [Ratio] 30.4 kg/m2 30.4 k g/m2 HILDA ([facility]) Systolic blood pressure 130 mm[Hg] 130 mm[Hg] A MOIZ ([facility]) Body weight 3587.2 [oz_av] 3587.2 [oz_av] ATHEN A ([facility]) Diastolic blood pressure 86 mm[Hg] 86 mm[Hg] HILDA ([facility]) Body height 72 [in_i] 72 [in_i] HILDA ([facility]) Body mass index (BMI) [Ratio] 30.4 kg/m2 30.4 k g/m2 HILDA ([facility]) Systolic blood pressure 130 mm[Hg] 130 mm[Hg] A MOIZ ([facility]) Body weight 3587.2 [oz_av] 3587.2 [oz_av] ATHEN A ([facility]) Diastolic blood pressure 86 mm[Hg] 86 mm[Hg] HILDA ([facility]) Body height 72 [in_i] 72 [in_i] HILDA ([facility]) Body mass index (BMI) [Ratio] 30.4 kg/m2 30.4 k g/m2 HILDA ([facility]) Systolic blood pressure 130 mm[Hg] 130 mm[Hg] A MOIZ ([facility]) Body weight 3587.2 [oz_av] 3587.2 [oz_av] ATHEN A ([facility]) Diastolic blood pressure 86 mm[Hg] 86 mm[Hg] HILDA ([facility]) Body height 72 [in_i] 72 [in_i] HILDA ([facility]) Body mass index (BMI) [Ratio] 30.4 kg/m2 30.4 k g/m2 HILDA ([facility]) Systolic blood pressure 130 mm[Hg] 130 mm[Hg] A MOIZ ([facility]) Body weight 3587.2 [oz_av] 3587.2 [oz_av] ATHEN A ([facility]) Diastolic blood pressure 86 mm[Hg] 86 mm[Hg] HILDA ([facility]) Body height 72 [in_i] 72 [in_i] HILDA ([facility]) Body mass index (BMI) [Ratio] 30.4 kg/m2 30.4 k g/m2 HILDA ([facility]) Diastolic blood pressure 86 mm[Hg] 86 mm[Hg] HILDA ([facility]) Body height 72 [in_i] 72 [in_i] HILDA ([facility]) Body mass index (BMI) [Ratio] 30.4 kg/m2 30.4 k g/m2 HILDA ([facility]) Systolic blood pressure 130 mm[Hg] 130 mm[Hg] A [facility] ([facility]) Body weight 3587.2 [oz_av] 3587.2 [oz_av] ATHEN A ([facility]) Systolic blood pressure 130 mm[Hg] 130 mm[Hg] A [facility] ([facility]) Body weight 3587.2 [oz_av] 3587.2 [oz_av] ATHEN A ([facility]) Diastolic blood pressure 86 mm[Hg] 86 mm[Hg] HILDA ([facility]) Body height 72 [in_i] 72 [in_i] HILDA ([facility]) Body mass index (BMI) [Ratio] 30.4 kg/m2 30.4 k g/m2 HILDA ([facility]) Systolic blood pressure 130 mm[Hg] 130 mm[Hg] A [facility] ([facility]) Body weight 3587.2 [oz_av] 3587.2 [oz_av] ATHEN A ([facility]) Diastolic blood pressure 86 mm[Hg] 86 mm[Hg] HILDA ([facility]) Body height 72 [in_i] 72 [in_i] HILDA ([facility]) Body mass index (BMI) [Ratio] 30.4 kg/m2 30.4 k g/m2 HILDA ([facility]) Systolic blood pressure 130 mm[Hg] 130 mm[Hg] A [facility] ([facility]) Body weight 3587.2 [oz_av] 3587.2 [oz_av] ATHEN A ([facility]) Diastolic blood pressure 86 mm[Hg] 86 mm[Hg] HILDA ([facility]) Body height 72 [in_i] 72 [in_i] HILDA ([facility]) Body mass index (BMI) [Ratio] 30.4 kg/m2 30.4 k g/m2 HILDA ([facility]) Systolic blood pressure 130 mm[Hg] 130 mm[Hg] A [facility] ([facility]) Body weight 3587.2 [oz_av] 3587.2 [oz_av] ATHEN A ([facility]) Diastolic blood pressure 86 mm[Hg] 86 mm[Hg] HILDA ([facility]) Body height 72 [in_i] 72 [in_i] HILDA ([facility]) Body mass index (BMI) [Ratio] 30.4 kg/m2 30.4 k g/m2 HILDA ([facility]) Systolic blood pressure 130 mm[Hg] 130 mm[Hg] A [facility] ([facility]) Body weight 3587.2 [oz_av] 3587.2 [oz_av] ATHEN A ([facility]) Diastolic blood pressure 86 mm[Hg] 86 mm[Hg] HILDA ([facility]) Body height 72 [in_i] 72 [in_i] HILDA ([facility]) Body mass index (BMI) [Ratio] 30.4 kg/m2 30.4 k g/m2 HILDA ([facility]) Systolic blood pressure 130 mm[Hg] 130 mm[Hg] A [facility] ([facility]) Body weight 3587.2 [oz_av] 3587.2 [oz_av] ATHEN A ([facility]) Diastolic blood pressure 86 mm[Hg] 86 mm[Hg] HILDA ([facility]) Body height 72 [in_i] 72 [in_i] HILDA ([facility]) Body mass index (BMI) [Ratio] 30.4 kg/m2 30.4 k g/m2 HILDA ([facility]) Systolic blood pressure 130 mm[Hg] 130 mm[Hg] A THENA ([facility]) Body weight 3587.2 [oz_av] 3587.2 [oz_av] ATHEN A ([facility]) Diastolic blood pressure 86 mm[Hg] 86 mm[Hg] HILDA ([facility]) Body height 72 [in_i] 72 [in_i] HILDA ([facility]) Body mass index (BMI) [Ratio] 30.4 kg/m2 30.4 k g/m2 HILDA ([facility]) Systolic blood pressure 130 mm[Hg] 130 mm[Hg] A [facility] ([facility]) Body weight 3587.2 [oz_av] 3587.2 [oz_av] ATHEN A ([facility]) Diastolic blood pressure 86 mm[Hg] 86 mm[Hg] HILDA ([facility]) Body height 72 [in_i] 72 [in_i] HILDA ([facility]) Body mass index (BMI) [Ratio] 30.4 kg/m2 30.4 k g/m2 HILDA ([facility]) Systolic blood pressure 130 mm[Hg] 130 mm[Hg] A [facility] ([facility]) Body weight 3587.2 [oz_av] 3587.2 [oz_av] ATHEN A ([facility]) Body height 72 [in_i] 72 [in_i] HILDA ([facility]) Body mass index (BMI) [Ratio] 30.4 kg/m2 30.4 k g/m2 HILDA ([facility]) Systolic blood pressure 130 mm[Hg] 130 mm[Hg] A [facility] ([facility]) Body weight 3587.2 [oz_av] 3587.2 [oz_av] ATHEN A ([facility]) Diastolic blood pressure 86 mm[Hg] 86 mm[Hg] HILDA ([facility]) Diastolic blood pressure 86 mm[Hg] 86 mm[Hg] HILDA ([facility]) Body height 72 [in_i] 72 [in_i] HILDA ([facility]) Body mass index (BMI) [Ratio] 30.4 kg/m2 30.4 k g/m2 HILDA ([facility]) Systolic blood pressure 130 mm[Hg] 130 mm[Hg] A [facility] ([facility]) Body weight 3587.2 [oz_av] 3587.2 [oz_av] ATHEN A ([facility]) Diastolic blood pressure 86 mm[Hg] 86 mm[Hg] HILDA ([facility]) Body height 72 [in_i] 72 [in_i] HILDA ([facility]) Body mass index (BMI) [Ratio] 30.4 kg/m2 30.4 k g/m2 HILDA ([facility]) Systolic blood pressure 130 mm[Hg] 130 mm[Hg] A [facility] ([facility]) Body weight 3587.2 [oz_av] 3587.2 [oz_av] ATHEN A ([facility]) Diastolic blood pressure 85 mm[Hg] 85 mm[Hg] HILDA ([facility]) Body height 72 [in_i] 72 [in_i] HILDA ([facility]) Body mass index (BMI) [Ratio] 30.2 kg/m2 30.2 k g/m2 HILDA ([facility]) Systolic blood pressure 130 mm[Hg] 130 mm[Hg] A [facility] ([facility]) Body weight 3558 [oz_av] 3558 [oz_av] HILDA ([facility]) Diastolic blood pressure 85 mm[Hg] 85 mm[Hg] HILDA ([facility]) Body height 72 [in_i] 72 [in_i] HILDA ([facility]) Body mass index (BMI) [Ratio] 30.2 kg/m2 30.2 k g/m2 HILDA ([facility]) Systolic blood pressure 130 mm[Hg] 130 mm[Hg] A [facility] ([facility]) Body weight 3558 [oz_av] 3558 [oz_av] HILDA ([facility]) Systolic blood pressure 130 mm[Hg] 130 mm[Hg] A [facility] ([facility]) Body weight 3558 [oz_av] 3558 [oz_av] HILDA ([facility]) Body height 72 [in_i] 72 [in_i] HILDA ([facility]) Diastolic blood pressure 85 mm[Hg] 85 mm[Hg] HILDA ([facility]) Body height 72 [in_i] 72 [in_i] HILDA ([facility]) Body mass index (BMI) [Ratio] 30.2 kg/m2 30.2 k g/m2 HILDA ([facility]) Body mass index (BMI) [Ratio] 30.2 kg/m2 30.2 k g/m2 HILDA ([facility]) Systolic blood pressure 130 mm[Hg] 130 mm[Hg] A [facility] ([facility]) Body weight 3558 [oz_av] 3558 [oz_av] HILDA ([facility]) Diastolic blood pressure 85 mm[Hg] 85 mm[Hg] HILDA ([facility]) Diastolic blood pressure 85 mm[Hg] 85 mm[Hg] HILDA ([facility]) Body height 72 [in_i] 72 [in_i] HILDA ([facility]) Body mass index (BMI) [Ratio] 30.2 kg/m2 30.2 k g/m2 HILDA ([facility]) Systolic blood pressure 130 mm[Hg] 130 mm[Hg] A [facility] ([facility]) Body weight 3558 [oz_av] 3558 [oz_av] HILDA ([facility]) Body height 72 [in_i] 72 [in_i] HILDA ([facility]) Body mass index (BMI) [Ratio] 30.2 kg/m2 30.2 k g/m2 HILDA ([facility]) Systolic blood pressure 130 mm[Hg] 130 mm[Hg] A [facility] ([facility]) Diastolic blood pressure 85 mm[Hg] 85 mm[Hg] HILDA ([facility]) Body weight 3558 [oz_av] 3558 [oz_av] HILDA ([facility]) Diastolic blood pressure 85 mm[Hg] 85 mm[Hg] HILDA ([facility]) Body height 72 [in_i] 72 [in_i] HILDA ([facility]) Body mass index (BMI) [Ratio] 30.2 kg/m2 30.2 k g/m2 HILDA ([facility]) Systolic blood pressure 130 mm[Hg] 130 mm[Hg] A THENA ([facility]) Body weight 3558 [oz_av] 3558 [oz_av] HILDA ([facility]) Diastolic blood pressure 85 mm[Hg] 85 mm[Hg] HILDA ([facility]) Body height 72 [in_i] 72 [in_i] HILDA ([facility]) Body mass index (BMI) [Ratio] 30.2 kg/m2 30.2 k g/m2 HILDA ([facility]) Systolic blood pressure 130 mm[Hg] 130 mm[Hg] A THENA ([facility]) Body weight 3558 [oz_av] 3558 [oz_av] HILDA ([facility]) Diastolic blood pressure 85 mm[Hg] 85 mm[Hg] HILDA ([facility]) Diastolic blood pressure 85 mm[Hg] 85 mm[Hg] HILDA ([facility]) Body height 72 [in_i] 72 [in_i] HILDA ([facility]) Body mass index (BMI) [Ratio] 30.2 kg/m2 30.2 k g/m2 HILDA ([facility]) Systolic blood pressure 130 mm[Hg] 130 mm[Hg] A [facility] ([facility]) Body weight 3558 [oz_av] 3558 [oz_av] HILDA ([facility]) Body height 72 [in_i] 72 [in_i] HILDA ([facility]) Body mass index (BMI) [Ratio] 30.2 kg/m2 30.2 k g/m2 HILDA ([facility]) Systolic blood pressure 130 mm[Hg] 130 mm[Hg] A [facility] ([facility]) Body weight 3558 [oz_av] 3558 [oz_av] HILDA ([facility]) Diastolic blood pressure 85 mm[Hg] 85 mm[Hg] HILDA ([facility]) Body height 72 [in_i] 72 [in_i] HILDA ([facility]) Body mass index (BMI) [Ratio] 30.2 kg/m2 30.2 k g/m2 HILDA ([facility]) Systolic blood pressure 130 mm[Hg] 130 mm[Hg] A THENA ([facility]) Body weight 3558 [oz_av] 3558 [oz_av] HILDA ([facility]) Diastolic blood pressure 85 mm[Hg] 85 mm[Hg] HILDA ([facility]) Body height 72 [in_i] 72 [in_i] HILDA ([facility]) Body mass index (BMI) [Ratio] 30.2 kg/m2 30.2 k g/m2 HILDA ([facility]) Systolic blood pressure 130 mm[Hg] 130 mm[Hg] A [facility] ([facility]) Body weight 3558 [oz_av] 3558 [oz_av] HILDA ([facility]) Diastolic blood pressure 85 mm[Hg] 85 mm[Hg] HILDA ([facility]) Body height 72 [in_i] 72 [in_i] HILDA ([facility]) Body mass index (BMI) [Ratio] 30.2 kg/m2 30.2 k g/m2 HILDA ([facility]) Systolic blood pressure 130 mm[Hg] 130 mm[Hg] A [facility] ([facility]) Body weight 3558 [oz_av] 3558 [oz_av] HILDA ([facility]) Diastolic blood pressure 85 mm[Hg] 85 mm[Hg] HILDA ([facility]) Body height 72 [in_i] 72 [in_i] HILDA ([facility]) Body mass index (BMI) [Ratio] 30.2 kg/m2 30.2 k g/m2 HILDA ([facility]) Systolic blood pressure 130 mm[Hg] 130 mm[Hg] A [facility] ([facility]) Body weight 3558 [oz_av] 3558 [oz_av] HILDA ([facility]) Diastolic blood pressure 85 mm[Hg] 85 mm[Hg] HILDA ([facility]) Body height 72 [in_i] 72 [in_i] HILDA ([facility]) Body mass index (BMI) [Ratio] 30.2 kg/m2 30.2 k g/m2 HILDA ([facility]) Systolic blood pressure 130 mm[Hg] 130 mm[Hg] A THENA ([facility]) Body weight 3558 [oz_av] 3558 [oz_av] HILDA ([facility]) Diastolic blood pressure 85 mm[Hg] 85 mm[Hg] HILDA ([facility]) Body height 72 [in_i] 72 [in_i] HILDA ([facility]) Body mass index (BMI) [Ratio] 30.2 kg/m2 30.2 k g/m2 HILDA ([facility]) Systolic blood pressure 130 mm[Hg] 130 mm[Hg] A [facility] ([facility]) Body weight 3558 [oz_av] 3558 [oz_av] HILDA ([facility]) Diastolic blood pressure 85 mm[Hg] 85 mm[Hg] HILDA ([facility]) Body height 72 [in_i] 72 [in_i] HILDA ([facility]) Body mass index (BMI) [Ratio] 30.2 kg/m2 30.2 k g/m2 HILDA ([facility]) Systolic blood pressure 130 mm[Hg] 130 mm[Hg] A [facility] ([facility]) Body weight 3558 [oz_av] 3558 [oz_av] HILDA ([facility]) Body height 72 [in_i] 72 [in_i] HILDA ([facility]) Body mass index (BMI) [Ratio] 30.2 kg/m2 30.2 k g/m2 HILDA ([facility]) Systolic blood pressure 130 mm[Hg] 130 mm[Hg] A [facility] ([facility]) Body weight 3558 [oz_av] 3558 [oz_av] HILDA ([facility]) Diastolic blood pressure 85 mm[Hg] 85 mm[Hg] HILDA ([facility]) Diastolic blood pressure 85 mm[Hg] 85 mm[Hg] HILDA ([facility]) Body height 72 [in_i] 72 [in_i] HILDA ([facility]) Body mass index (BMI) [Ratio] 30.2 kg/m2 30.2 k g/m2 HILDA ([facility]) Systolic blood pressure 130 mm[Hg] 130 mm[Hg] A [facility] ([facility]) Body weight 3558 [oz_av] 3558 [oz_av] HILDA ([facility]) Diastolic blood pressure 85 mm[Hg] 85 mm[Hg] HILDA ([facility]) Body height 72 [in_i] 72 [in_i] HILDA ([facility]) Body mass index (BMI) [Ratio] 30.2 kg/m2 30.2 k g/m2 HILDA ([facility]) Systolic blood pressure 130 mm[Hg] 130 mm[Hg] A [facility] ([facility]) Body weight 3558 [oz_av] 3558 [oz_av] HILDA ([facility]) Diastolic blood pressure 85 mm[Hg] 85 mm[Hg] HILDA ([facility]) Body height 72 [in_i] 72 [in_i] HILDA ([facility]) Body mass index (BMI) [Ratio] 30.2 kg/m2 30.2 k g/m2 HILDA ([facility]) Systolic blood pressure 130 mm[Hg] 130 mm[Hg] A [facility] ([facility]) Body weight 3558 [oz_av] 3558 [oz_av] HILDA ([facility]) Diastolic blood pressure 85 mm[Hg] 85 mm[Hg] HILDA ([facility]) Body height 72 [in_i] 72 [in_i] HILDA ([facility]) Body mass index (BMI) [Ratio] 30.2 kg/m2 30.2 k g/m2 HILDA ([facility]) Systolic blood pressure 130 mm[Hg] 130 mm[Hg] A [facility] ([facility]) Body weight 3558 [oz_av] 3558 [oz_av] HILDA ([facility]) Body mass index (BMI) [Ratio] 30.2 kg/m2 30.2 k g/m2 HILDA ([facility]) Systolic blood pressure 130 mm[Hg] 130 mm[Hg] A THENA ([facility]) Body weight 3558 [oz_av] 3558 [oz_av] HILDA ([facility]) Diastolic blood pressure 85 mm[Hg] 85 mm[Hg] HILDA ([facility]) Body height 72 [in_i] 72 [in_i] HILDA ([facility]) Body mass index (BMI) [Ratio] 30.2 kg/m2 30.2 k g/m2 HILDA ([facility]) Systolic blood pressure 130 mm[Hg] 130 mm[Hg] A THENA ([facility]) Body weight 3558 [oz_av] 3558 [oz_av] HILDA ([facility]) Body weight 3558 [oz_av] 3558 [oz_av] HILDA ([facility]) Diastolic blood pressure 85 mm[Hg] 85 mm[Hg] HILDA ([facility]) Body height 72 [in_i] 72 [in_i] HILDA ([facility]) Body mass index (BMI) [Ratio] 30.2 kg/m2 30.2 k g/m2 HILDA ([facility]) Systolic blood pressure 130 mm[Hg] 130 mm[Hg] A [facility] ([facility]) Diastolic blood pressure 85 mm[Hg] 85 mm[Hg] HILDA ([facility]) Body height 72 [in_i] 72 [in_i] HILDA ([facility]) Diastolic blood pressure 85 mm[Hg] 85 mm[Hg] HILDA ([facility]) Body height 72 [in_i] 72 [in_i] HILDA ([facility]) Body mass index (BMI) [Ratio] 30.2 kg/m2 30.2 k g/m2 HILDA ([facility]) Systolic blood pressure 130 mm[Hg] 130 mm[Hg] A [facility] ([facility]) Body weight 3558 [oz_av] 3558 [oz_av] HILDA ([facility]) Diastolic blood pressure 85 mm[Hg] 85 mm[Hg] HILDA ([facility]) Body height 72 [in_i] 72 [in_i] HILDA ([facility]) Body mass index (BMI) [Ratio] 30.2 kg/m2 30.2 k g/m2 HILDA ([facility]) Systolic blood pressure 130 mm[Hg] 130 mm[Hg] A THENA ([facility]) Body weight 3558 [oz_av] 3558 [oz_av] HILDA ([facility]) Systolic blood pressure 130 mm[Hg] 130 mm[Hg] A THENA ([facility]) Body weight 3558 [oz_av] 3558 [oz_av] HILDA ([facility]) Diastolic blood pressure 85 mm[Hg] 85 mm[Hg] HILDA ([facility]) Body height 72 [in_i] 72 [in_i] HILDA ([facility]) Body mass index (BMI) [Ratio] 30.2 kg/m2 30.2 k g/m2 HILDA ([facility]) Diastolic blood pressure 85 mm[Hg] 85 mm[Hg] HILDA ([facility]) Body height 72 [in_i] 72 [in_i] HILDA ([facility]) Body mass index (BMI) [Ratio] 30.2 kg/m2 30.2 k g/m2 HILDA ([facility]) Systolic blood pressure 130 mm[Hg] 130 mm[Hg] A [facility] ([facility]) Body weight 3558 [oz_av] 3558 [oz_av] HILDA ([facility]) Diastolic blood pressure 85 mm[Hg] 85 mm[Hg] HILDA ([facility]) Body height 72 [in_i] 72 [in_i] HILDA ([facility]) Body mass index (BMI) [Ratio] 30.2 kg/m2 30.2 k g/m2 HILDA ([facility]) Systolic blood pressure 130 mm[Hg] 130 mm[Hg] A [facility] ([facility]) Body weight 3558 [oz_av] 3558 [oz_av] HILDA ([facility]) Systolic blood pressure 130 mm[Hg] 130 mm[Hg] A THENA ([facility]) Body weight 3558 [oz_av] 3558 [oz_av] HILDA ([facility]) Diastolic blood pressure 85 mm[Hg] 85 mm[Hg] HILDA ([facility]) Body height 72 [in_i] 72 [in_i] HILDA ([facility]) Body mass index (BMI) [Ratio] 30.2 kg/m2 30.2 k g/m2 HILDA ([facility]) Diastolic blood pressure 85 mm[Hg] 85 mm[Hg] HILDA ([facility]) Body height 72 [in_i] 72 [in_i] HILDA ([facility]) Body mass index (BMI) [Ratio] 30.2 kg/m2 30.2 k g/m2 HILDA ([facility]) Systolic blood pressure 130 mm[Hg] 130 mm[Hg] A [facility] ([facility]) Body weight 3558 [oz_av] 3558 [oz_av] HILDA ([facility]) Systolic blood pressure 130 mm[Hg] 130 mm[Hg] A [facility] ([facility]) Body weight 3558 [oz_av] 3558 [oz_av] HILDA ([facility]) Diastolic blood pressure 85 mm[Hg] 85 mm[Hg] HILDA ([facility]) Body height 72 [in_i] 72 [in_i] HILDA ([facility]) Body mass index (BMI) [Ratio] 30.2 kg/m2 30.2 k g/m2 HILDA ([facility]) Diastolic blood pressure 85 mm[Hg] 85 mm[Hg] HILDA ([facility]) Body height 72 [in_i] 72 [in_i] HILDA ([facility]) Body mass index (BMI) [Ratio] 30.2 kg/m2 30.2 k g/m2 HILDA ([facility]) Systolic blood pressure 130 mm[Hg] 130 mm[Hg] A [facility] ([facility]) Body weight 3558 [oz_av] 3558 [oz_av] HILDA ([facility]) Diastolic blood pressure 85 mm[Hg] 85 mm[Hg] HILDA ([facility]) Body height 72 [in_i] 72 [in_i] HILDA ([facility]) Body mass index (BMI) [Ratio] 30.2 kg/m2 30.2 k g/m2 HILDA ([facility]) Systolic blood pressure 130 mm[Hg] 130 mm[Hg] A THENA ([facility]) Body weight 3558 [oz_av] 3558 [oz_av] HILDA ([facility]) Diastolic blood pressure 85 mm[Hg] 85 mm[Hg] HILDA ([facility]) Body height 72 [in_i] 72 [in_i] HILDA ([facility]) Body mass index (BMI) [Ratio] 30.2 kg/m2 30.2 k g/m2 HILDA ([facility]) Systolic blood pressure 130 mm[Hg] 130 mm[Hg] A [facility] ([facility]) Body weight 3558 [oz_av] 3558 [oz_av] HILDA ([facility]) Diastolic blood pressure 85 mm[Hg] 85 mm[Hg] HILDA ([facility]) Body height 72 [in_i] 72 [in_i] HILDA ([facility]) Body mass index (BMI) [Ratio] 30.2 kg/m2 30.2 k g/m2 HILDA ([facility]) Systolic blood pressure 130 mm[Hg] 130 mm[Hg] A [facility] ([facility]) Body weight 3558 [oz_av] 3558 [oz_av] HILDA ([facility]) Body mass index (BMI) [Ratio] 30.2 kg/m2 30.2 k g/m2 HILDA ([facility]) Systolic blood pressure 130 mm[Hg] 130 mm[Hg] A [facility] ([facility]) Body weight 3558 [oz_av] 3558 [oz_av] HILDA ([facility]) Diastolic blood pressure 85 mm[Hg] 85 mm[Hg] HILDA ([facility]) Body height 72 [in_i] 72 [in_i] HILDA ([facility]) Diastolic blood pressure 70 mm[Hg] 70 mm[Hg] HILDA ([facility]) Body height 72 [in_i] 72 [in_i] HILDA ([facility]) Body mass index (BMI) [Ratio] 30.24 kg/m2 30.24 kg/m2 HILDA ([facility]) Systolic blood pressure 134 mm[Hg] 134 mm[Hg] A [facility] ([facility]) Body weight 3555.2 [oz_av] 3555.2 [oz_av] ATHEN A ([facility]) Diastolic blood pressure 70 mm[Hg] 70 mm[Hg] HILDA ([facility]) Body height 72 [in_i] 72 [in_i] HILDA ([facility]) Body mass index (BMI) [Ratio] 30.24 kg/m2 30.24 kg/m2 HILDA ([facility]) Systolic blood pressure 134 mm[Hg] 134 mm[Hg] A [facility] ([facility]) Body weight 3555.2 [oz_av] 3555.2 [oz_av] ATHEN A ([facility]) Diastolic blood pressure 70 mm[Hg] 70 mm[Hg] HILDA ([facility]) Body height 72 [in_i] 72 [in_i] HILDA ([facility]) Body mass index (BMI) [Ratio] 30.24 kg/m2 30.24 kg/m2 HILDA ([facility]) Systolic blood pressure 134 mm[Hg] 134 mm[Hg] A [facility] ([facility]) Body weight 3555.2 [oz_av] 3555.2 [oz_av] ATHEN A ([facility]) Diastolic blood pressure 70 mm[Hg] 70 mm[Hg] HILDA ([facility]) Body height 72 [in_i] 72 [in_i] HILDA ([facility]) Body mass index (BMI) [Ratio] 30.24 kg/m2 30.24 kg/m2 HILDA ([facility]) Systolic blood pressure 134 mm[Hg] 134 mm[Hg] A THENA ([facility]) Body weight 3555.2 [oz_av] 3555.2 [oz_av] ATHEN A ([facility]) Diastolic blood pressure 70 mm[Hg] 70 mm[Hg] HILDA ([facility]) Body height 72 [in_i] 72 [in_i] HILDA ([facility]) Body mass index (BMI) [Ratio] 30.24 kg/m2 30.24 kg/m2 HILDA ([facility]) Systolic blood pressure 134 mm[Hg] 134 mm[Hg] A THENA ([facility]) Body weight 3555.2 [oz_av] 3555.2 [oz_av] ATHEN A ([facility]) Diastolic blood pressure 70 mm[Hg] 70 mm[Hg] HILDA ([facility]) Body height 72 [in_i] 72 [in_i] HILDA ([facility]) Body mass index (BMI) [Ratio] 30.24 kg/m2 30.24 kg/m2 HILDA ([facility]) Systolic blood pressure 134 mm[Hg] 134 mm[Hg] A THENA ([facility]) Body weight 3555.2 [oz_av] 3555.2 [oz_av] ATHEN A ([facility]) Diastolic blood pressure 70 mm[Hg] 70 mm[Hg] HILDA ([facility]) Body height 72 [in_i] 72 [in_i] HILDA ([facility]) Body mass index (BMI) [Ratio] 30.24 kg/m2 30.24 kg/m2 HILDA ([facility]) Systolic blood pressure 134 mm[Hg] 134 mm[Hg] A THENA ([facility]) Body weight 3555.2 [oz_av] 3555.2 [oz_av] ATHEN A ([facility]) Diastolic blood pressure 70 mm[Hg] 70 mm[Hg] HILDA ([facility]) Body height 72 [in_i] 72 [in_i] HILDA ([facility]) Body mass index (BMI) [Ratio] 30.24 kg/m2 30.24 kg/m2 HILDA ([facility]) Systolic blood pressure 134 mm[Hg] 134 mm[Hg] A THENA ([facility]) Body weight 3555.2 [oz_av] 3555.2 [oz_av] ATHEN A ([facility]) Diastolic blood pressure 70 mm[Hg] 70 mm[Hg] HILDA ([facility]) Body height 72 [in_i] 72 [in_i] HILDA ([facility]) Body mass index (BMI) [Ratio] 30.24 kg/m2 30.24 kg/m2 HILDA ([facility]) Systolic blood pressure 134 mm[Hg] 134 mm[Hg] A THENA ([facility]) Body weight 3555.2 [oz_av] 3555.2 [oz_av] ATHEN A ([facility]) Diastolic blood pressure 70 mm[Hg] 70 mm[Hg] HILDA ([facility]) Body height 72 [in_i] 72 [in_i] HILDA ([facility]) Body mass index (BMI) [Ratio] 30.24 kg/m2 30.24 kg/m2 HILDA ([facility]) Systolic blood pressure 134 mm[Hg] 134 mm[Hg] A THENA ([facility]) Body weight 3555.2 [oz_av] 3555.2 [oz_av] ATHEN A ([facility]) Diastolic blood pressure 70 mm[Hg] 70 mm[Hg] HILDA ([facility]) Body height 72 [in_i] 72 [in_i] HILDA ([facility]) Body mass index (BMI) [Ratio] 30.24 kg/m2 30.24 kg/m2 HILDA ([facility]) Systolic blood pressure 134 mm[Hg] 134 mm[Hg] A THENA ([facility]) Body weight 3555.2 [oz_av] 3555.2 [oz_av] ATHEN A ([facility]) Diastolic blood pressure 70 mm[Hg] 70 mm[Hg] HILDA ([facility]) Body height 72 [in_i] 72 [in_i] HILDA ([facility]) Body mass index (BMI) [Ratio] 30.24 kg/m2 30.24 kg/m2 HILDA ([facility]) Systolic blood pressure 134 mm[Hg] 134 mm[Hg] A THENA ([facility]) Body weight 3555.2 [oz_av] 3555.2 [oz_av] ATHEN A ([facility]) Diastolic blood pressure 70 mm[Hg] 70 mm[Hg] HILDA ([facility]) Body height 72 [in_i] 72 [in_i] HILDA ([facility]) Body mass index (BMI) [Ratio] 30.24 kg/m2 30.24 kg/m2 HILDA ([facility]) Systolic blood pressure 134 mm[Hg] 134 mm[Hg] A THENA ([facility]) Body weight 3555.2 [oz_av] 3555.2 [oz_av] ATHEN A ([facility]) Diastolic blood pressure 70 mm[Hg] 70 mm[Hg] HILDA ([facility]) Body height 72 [in_i] 72 [in_i] HILDA ([facility]) Body mass index (BMI) [Ratio] 30.24 kg/m2 30.24 kg/m2 HILDA ([facility]) Systolic blood pressure 134 mm[Hg] 134 mm[Hg] A [facility] ([facility]) Body weight 3555.2 [oz_av] 3555.2 [oz_av] ATHEN A ([facility]) Diastolic blood pressure 70 mm[Hg] 70 mm[Hg] HILDA ([facility]) Body height 72 [in_i] 72 [in_i] HILAD ([facility]) Body mass index (BMI) [Ratio] 30.24 kg/m2 30.24 kg/m2 HILDA ([facility]) Systolic blood pressure 134 mm[Hg] 134 mm[Hg] A [facility] ([facility]) Body weight 3555.2 [oz_av] 3555.2 [oz_av] ATHEN A ([facility]) Diastolic blood pressure 70 mm[Hg] 70 mm[Hg] HILDA ([facility]) Body height 72 [in_i] 72 [in_i] HILDA ([facility]) Body mass index (BMI) [Ratio] 30.24 kg/m2 30.24 kg/m2 HILDA ([facility]) Systolic blood pressure 134 mm[Hg] 134 mm[Hg] A [facility] ([facility]) Body weight 3555.2 [oz_av] 3555.2 [oz_av] ATHEN A ([facility]) Diastolic blood pressure 70 mm[Hg] 70 mm[Hg] HILDA ([facility]) Body height 72 [in_i] 72 [in_i] HILDA ([facility]) Body mass index (BMI) [Ratio] 30.24 kg/m2 30.24 kg/m2 HILDA ([facility]) Systolic blood pressure 134 mm[Hg] 134 mm[Hg] A [facility] ([facility]) Body weight 3555.2 [oz_av] 3555.2 [oz_av] ATHEN A ([facility]) Body mass index (BMI) [Ratio] 30.24 kg/m2 30.24 kg/m2 HILDA ([facility]) Systolic blood pressure 134 mm[Hg] 134 mm[Hg] A [facility] ([facility]) Body weight 3555.2 [oz_av] 3555.2 [oz_av] ATHEN A ([facility]) Diastolic blood pressure 70 mm[Hg] 70 mm[Hg] HILDA ([facility]) Body height 72 [in_i] 72 [in_i] HILDA ([facility]) Diastolic blood pressure 70 mm[Hg] 70 mm[Hg] HILDA ([facility]) Body height 72 [in_i] 72 [in_i] HILDA ([facility]) Body mass index (BMI) [Ratio] 30.24 kg/m2 30.24 kg/m2 HILDA ([facility]) Systolic blood pressure 134 mm[Hg] 134 mm[Hg] A [facility] ([facility]) Body weight 3555.2 [oz_av] 3555.2 [oz_av] ATHEN A ([facility]) Diastolic blood pressure 70 mm[Hg] 70 mm[Hg] HILDA ([facility]) Body height 72 [in_i] 72 [in_i] HILDA ([facility]) Body mass index (BMI) [Ratio] 30.24 kg/m2 30.24 kg/m2 HILDA ([facility]) Systolic blood pressure 134 mm[Hg] 134 mm[Hg] A THENA ([facility]) Body weight 3555.2 [oz_av] 3555.2 [oz_av] ATHEN A ([facility]) Diastolic blood pressure 70 mm[Hg] 70 mm[Hg] HILDA ([facility]) Body height 72 [in_i] 72 [in_i] HILDA ([facility]) Body mass index (BMI) [Ratio] 30.24 kg/m2 30.24 kg/m2 HILDA ([facility]) Systolic blood pressure 134 mm[Hg] 134 mm[Hg] A THENA ([facility]) Body weight 3555.2 [oz_av] 3555.2 [oz_av] ATHEN A ([facility]) Diastolic blood pressure 70 mm[Hg] 70 mm[Hg] HILDA ([facility]) Body height 72 [in_i] 72 [in_i] HILDA ([facility]) Body mass index (BMI) [Ratio] 30.24 kg/m2 30.24 kg/m2 HILDA ([facility]) Systolic blood pressure 134 mm[Hg] 134 mm[Hg] A [facility] ([facility]) Body weight 3555.2 [oz_av] 3555.2 [oz_av] ATHEN A ([facility]) Diastolic blood pressure 70 mm[Hg] 70 mm[Hg] HILDA ([facility]) Body height 72 [in_i] 72 [in_i] HILDA ([facility]) Body mass index (BMI) [Ratio] 30.24 kg/m2 30.24 kg/m2 HILDA ([facility]) Systolic blood pressure 134 mm[Hg] 134 mm[Hg] A [facility] ([facility]) Body weight 3555.2 [oz_av] 3555.2 [oz_av] ATHEN A ([facility]) Diastolic blood pressure 91 mm[Hg] 91 mm[Hg] HILDA ([facility]) Diastolic blood pressure 91 mm[Hg] 91 mm[Hg] HILDA ([facility]) Body height 72 [in_i] 72 [in_i] HILDA ([facility]) Systolic blood pressure 135 mm[Hg] 135 mm[Hg] A [facility] ([facility]) Systolic blood pressure 148 mm[Hg] 148 mm[Hg] A [facility] ([facility]) Body weight 3539.2 [oz_av] 3539.2 [oz_av] ATHEN A ([facility]) Body weight 3539.2 [oz_av] 3539.2 [oz_av] ATHEN A ([facility]) Diastolic blood pressure 91 mm[Hg] 91 mm[Hg] HILDA ([facility]) Diastolic blood pressure 91 mm[Hg] 91 mm[Hg] HILDA ([facility]) Body height 72 [in_i] 72 [in_i] HILDA ([facility]) Systolic blood pressure 135 mm[Hg] 135 mm[Hg] A [facility] ([facility]) Systolic blood pressure 148 mm[Hg] 148 mm[Hg] A [facility] ([facility]) Diastolic blood pressure 79 mm[Hg] 79 mm[Hg] HILDA ([facility]) Diastolic blood pressure 91 mm[Hg] 91 mm[Hg] HILDA ([facility]) Diastolic blood pressure 91 mm[Hg] 91 mm[Hg] HILDA ([facility]) Body height 72 [in_i] 72 [in_i] HILDA ([facility]) Body mass index (BMI) [Ratio] 30.11 kg/m2 30.11 kg/m2 HILDA ([facility]) Systolic blood pressure 135 mm[Hg] 135 mm[Hg] A THENA ([facility]) Systolic blood pressure 135 mm[Hg] 135 mm[Hg] A THENA ([facility]) Systolic blood pressure 148 mm[Hg] 148 mm[Hg] A [facility] ([facility]) Body weight 3539.2 [oz_av] 3539.2 [oz_av] ATHEN A ([facility]) Diastolic blood pressure 91 mm[Hg] 91 mm[Hg] HILDA ([facility]) Diastolic blood pressure 91 mm[Hg] 91 mm[Hg] HILDA ([facility]) Body height 72 [in_i] 72 [in_i] HILDA ([facility]) Systolic blood pressure 135 mm[Hg] 135 mm[Hg] A THENA ([facility]) Systolic blood pressure 148 mm[Hg] 148 mm[Hg] A THENA ([facility]) Body weight 3539.2 [oz_av] 3539.2 [oz_av] ATHEN A ([facility]) Diastolic blood pressure 79 mm[Hg] 79 mm[Hg] HILDA ([facility]) Diastolic blood pressure 91 mm[Hg] 91 mm[Hg] HILDA ([facility]) Diastolic blood pressure 91 mm[Hg] 91 mm[Hg] HILDA ([facility]) Body height 72 [in_i] 72 [in_i] HILDA ([facility]) Body mass index (BMI) [Ratio] 30.11 kg/m2 30.11 kg/m2 HILDA ([facility]) Systolic blood pressure 135 mm[Hg] 135 mm[Hg] A THENA ([facility]) Systolic blood pressure 135 mm[Hg] 135 mm[Hg] A THENA ([facility]) Systolic blood pressure 148 mm[Hg] 148 mm[Hg] A THENA ([facility]) Body weight 3539.2 [oz_av] 3539.2 [oz_av] ATHEN A ([facility]) Diastolic blood pressure 91 mm[Hg] 91 mm[Hg] HILDA ([facility]) Diastolic blood pressure 91 mm[Hg] 91 mm[Hg] HILDA ([facility]) Body height 72 [in_i] 72 [in_i] HILDA ([facility]) Systolic blood pressure 135 mm[Hg] 135 mm[Hg] A THENA ([facility]) Systolic blood pressure 148 mm[Hg] 148 mm[Hg] A THENA ([facility]) Body weight 3539.2 [oz_av] 3539.2 [oz_av] ATHEN A ([facility]) Diastolic blood pressure 91 mm[Hg] 91 mm[Hg] HILDA ([facility]) Diastolic blood pressure 91 mm[Hg] 91 mm[Hg] HILDA ([facility]) Body height 72 [in_i] 72 [in_i] HILDA ([facility]) Systolic blood pressure 135 mm[Hg] 135 mm[Hg] A THENA ([facility]) Systolic blood pressure 148 mm[Hg] 148 mm[Hg] A THENA ([facility]) Body weight 3539.2 [oz_av] 3539.2 [oz_av] ATHEN A ([facility]) Diastolic blood pressure 91 mm[Hg] 91 mm[Hg] HILDA ([facility]) Diastolic blood pressure 91 mm[Hg] 91 mm[Hg] HILDA ([facility]) Body height 72 [in_i] 72 [in_i] HILDA ([facility]) Systolic blood pressure 135 mm[Hg] 135 mm[Hg] A THENA ([facility]) Systolic blood pressure 148 mm[Hg] 148 mm[Hg] A THENA ([facility]) Body weight 3539.2 [oz_av] 3539.2 [oz_av] ATHEN A ([facility]) Diastolic blood pressure 91 mm[Hg] 91 mm[Hg] HILDA ([facility]) Diastolic blood pressure 91 mm[Hg] 91 mm[Hg] HILDA ([facility]) Body height 72 [in_i] 72 [in_i] HILDA ([facility]) Systolic blood pressure 135 mm[Hg] 135 mm[Hg] A THENA ([facility]) Systolic blood pressure 148 mm[Hg] 148 mm[Hg] A THENA ([facility]) Body weight 3539.2 [oz_av] 3539.2 [oz_av] ATHEN A ([facility]) Diastolic blood pressure 91 mm[Hg] 91 mm[Hg] HILDA ([facility]) Diastolic blood pressure 91 mm[Hg] 91 mm[Hg] HILDA ([facility]) Body height 72 [in_i] 72 [in_i] HILDA ([facility]) Systolic blood pressure 135 mm[Hg] 135 mm[Hg] A [facility] [facility]) Systolic blood pressure 148 mm[Hg] 148 mm[Hg] A THENA ([facility]) Body weight 3539.2 [oz_av] 3539.2 [oz_av] ATHEN A ([facility]) Diastolic blood pressure 91 mm[Hg] 91 mm[Hg] HILDA ([facility]) Diastolic blood pressure 91 mm[Hg] 91 mm[Hg] HILDA ([facility]) Body height 72 [in_i] 72 [in_i] HILDA ([facility]) Systolic blood pressure 135 mm[Hg] 135 mm[Hg] A THENA ([facility]) Systolic blood pressure 148 mm[Hg] 148 mm[Hg] A THENA ([facility]) Body weight 3539.2 [oz_av] 3539.2 [oz_av] ATHEN A ([facility]) Diastolic blood pressure 91 mm[Hg] 91 mm[Hg] HILDA ([facility]) Diastolic blood pressure 91 mm[Hg] 91 mm[Hg] HILDA ([facility]) Body height 72 [in_i] 72 [in_i] HILDA ([facility]) Systolic blood pressure 135 mm[Hg] 135 mm[Hg] A THENA ([facility]) Systolic blood pressure 148 mm[Hg] 148 mm[Hg] A THENA ([facility]) Body weight 3539.2 [oz_av] 3539.2 [oz_av] ATHEN A ([facility]) Diastolic blood pressure 91 mm[Hg] 91 mm[Hg] HILDA ([facility]) Diastolic blood pressure 91 mm[Hg] 91 mm[Hg] HILDA ([facility]) Body height 72 [in_i] 72 [in_i] HILDA ([facility]) Systolic blood pressure 135 mm[Hg] 135 mm[Hg] A THENA ([facility]) Systolic blood pressure 148 mm[Hg] 148 mm[Hg] A THENA ([facility]) Body weight 3539.2 [oz_av] 3539.2 [oz_av] ATHEN A ([facility]) Diastolic blood pressure 91 mm[Hg] 91 mm[Hg] HILDA ([facility]) Diastolic blood pressure 91 mm[Hg] 91 mm[Hg] HILDA ([facility]) Body height 72 [in_i] 72 [in_i] HILDA ([facility]) Systolic blood pressure 135 mm[Hg] 135 mm[Hg] A THENA ([facility]) Systolic blood pressure 148 mm[Hg] 148 mm[Hg] A THENA ([facility]) Body weight 3539.2 [oz_av] 3539.2 [oz_av] ATHEN A ([facility]) Diastolic blood pressure 91 mm[Hg] 91 mm[Hg] HILDA ([facility]) Diastolic blood pressure 91 mm[Hg] 91 mm[Hg] HILDA ([facility]) Body height 72 [in_i] 72 [in_i] HILDA ([facility]) Systolic blood pressure 135 mm[Hg] 135 mm[Hg] A THENA ([facility]) Systolic blood pressure 148 mm[Hg] 148 mm[Hg] A THENA ([facility]) Body weight 3539.2 [oz_av] 3539.2 [oz_av] ATHEN A ([facility]) Diastolic blood pressure 91 mm[Hg] 91 mm[Hg] HILDA ([facility]) Diastolic blood pressure 91 mm[Hg] 91 mm[Hg] HILDA ([facility]) Body height 72 [in_i] 72 [in_i] HILDA ([facility]) Systolic blood pressure 135 mm[Hg] 135 mm[Hg] A THENA ([facility]) Systolic blood pressure 148 mm[Hg] 148 mm[Hg] A THENA ([facility]) Body weight 3539.2 [oz_av] 3539.2 [oz_av] ATHEN A ([facility]) Diastolic blood pressure 91 mm[Hg] 91 mm[Hg] HILDA ([facility]) Body height 72 [in_i] 72 [in_i] HILDA ([facility]) Systolic blood pressure 135 mm[Hg] 135 mm[Hg] A [facility] ([facility]) Systolic blood pressure 148 mm[Hg] 148 mm[Hg] A THENA ([facility]) Body weight 3539.2 [oz_av] 3539.2 [oz_av] ATHEN A ([facility]) Diastolic blood pressure 91 mm[Hg] 91 mm[Hg] HILDA ([facility]) Diastolic blood pressure 91 mm[Hg] 91 mm[Hg] HILDA ([facility]) Diastolic blood pressure 91 mm[Hg] 91 mm[Hg] HILDA ([facility]) Body height 72 [in_i] 72 [in_i] HILDA ([facility]) Systolic blood pressure 135 mm[Hg] 135 mm[Hg] A THENA ([facility]) Systolic blood pressure 148 mm[Hg] 148 mm[Hg] A THENA ([facility]) Body weight 3539.2 [oz_av] 3539.2 [oz_av] ATHEN A ([facility]) Diastolic blood pressure 91 mm[Hg] 91 mm[Hg] HILDA ([facility]) Diastolic blood pressure 91 mm[Hg] 91 mm[Hg] HILDA ([facility]) Body height 72 [in_i] 72 [in_i] HILDA ([facility]) Systolic blood pressure 135 mm[Hg] 135 mm[Hg] A THENA ([facility]) Systolic blood pressure 148 mm[Hg] 148 mm[Hg] A THENA ([facility]) Body weight 3539.2 [oz_av] 3539.2 [oz_av] ATHEN A ([facility]) Diastolic blood pressure 79 mm[Hg] 79 mm[Hg] HILDA ([facility]) Diastolic blood pressure 91 mm[Hg] 91 mm[Hg] HILDA ([facility]) Diastolic blood pressure 91 mm[Hg] 91 mm[Hg] HILDA ([facility]) Body height 72 [in_i] 72 [in_i] HILDA ([facility]) Body mass index (BMI) [Ratio] 30.11 kg/m2 30.11 kg/m2 HILDA ([facility]) Systolic blood pressure 135 mm[Hg] 135 mm[Hg] A THENA ([facility]) Systolic blood pressure 135 mm[Hg] 135 mm[Hg] A THENA ([facility]) Systolic blood pressure 148 mm[Hg] 148 mm[Hg] A THENA ([facility]) Body weight 3539.2 [oz_av] 3539.2 [oz_av] ATHEN A ([facility]) Body height 72 [in_i] 72 [in_i] HILDA ([facility]) Body mass index (BMI) [Ratio] 30.11 kg/m2 30.11 kg/m2 HILDA ([facility]) Systolic blood pressure 135 mm[Hg] 135 mm[Hg] A THENA ([facility]) Systolic blood pressure 135 mm[Hg] 135 mm[Hg] A THENA ([facility]) Systolic blood pressure 148 mm[Hg] 148 mm[Hg] A THENA ([facility]) Body weight 3539.2 [oz_av] 3539.2 [oz_av] ATHEN A ([facility]) Diastolic blood pressure 79 mm[Hg] 79 mm[Hg] HILDA ([facility]) Diastolic blood pressure 91 mm[Hg] 91 mm[Hg] HILDA ([facility]) Diastolic blood pressure 91 mm[Hg] 91 mm[Hg] HILDA ([facility]) Diastolic blood pressure 79 mm[Hg] 79 mm[Hg] HILDA ([facility]) Diastolic blood pressure 91 mm[Hg] 91 mm[Hg] HILDA ([facility]) Diastolic blood pressure 91 mm[Hg] 91 mm[Hg] HILDA ([facility]) Body height 72 [in_i] 72 [in_i] HILDA ([facility]) Body mass index (BMI) [Ratio] 30.11 kg/m2 30.11 kg/m2 HILDA ([facility]) Systolic blood pressure 135 mm[Hg] 135 mm[Hg] A [facility] ([facility]) Systolic blood pressure 135 mm[Hg] 135 mm[Hg] A [facility] ([facility]) Systolic blood pressure 148 mm[Hg] 148 mm[Hg] A [facility] ([facility]) Body weight 3539.2 [oz_av] 3539.2 [oz_av] ATHEN A ([facility]) Body weight 3539.2 [oz_av] 3539.2 [oz_av] ATHEN A ([facility]) Diastolic blood pressure 79 mm[Hg] 79 mm[Hg] HILDA ([facility]) Diastolic blood pressure 91 mm[Hg] 91 mm[Hg] HILDA ([facility]) Diastolic blood pressure 91 mm[Hg] 91 mm[Hg] HILDA ([facility]) Body height 72 [in_i] 72 [in_i] HILDA ([facility]) Body mass index (BMI) [Ratio] 30.11 kg/m2 30.11 kg/m2 HILDA ([facility]) Systolic blood pressure 135 mm[Hg] 135 mm[Hg] A THENA ([facility]) Systolic blood pressure 135 mm[Hg] 135 mm[Hg] A THENA ([facility]) Systolic blood pressure 148 mm[Hg] 148 mm[Hg] A THENA ([facility]) Diastolic blood pressure 79 mm[Hg] 79 mm[Hg] HILDA ([facility]) Diastolic blood pressure 91 mm[Hg] 91 mm[Hg] HILDA ([facility]) Diastolic blood pressure 91 mm[Hg] 91 mm[Hg] HILDA ([facility]) Body height 72 [in_i] 72 [in_i] HILDA ([facility]) Body mass index (BMI) [Ratio] 30.11 kg/m2 30.11 kg/m2 HILDA ([facility]) Systolic blood pressure 135 mm[Hg] 135 mm[Hg] A THENA ([facility]) Systolic blood pressure 135 mm[Hg] 135 mm[Hg] A THENA ([facility]) Systolic blood pressure 148 mm[Hg] 148 mm[Hg] A THENA ([facility]) Body weight 3539.2 [oz_av] 3539.2 [oz_av] ATHEN A ([facility]) Diastolic blood pressure 79 mm[Hg] 79 mm[Hg] HILDA ([facility]) Diastolic blood pressure 91 mm[Hg] 91 mm[Hg] HILDA ([facility]) Diastolic blood pressure 79 mm[Hg] 79 mm[Hg] HILDA ([facility]) Diastolic blood pressure 91 mm[Hg] 91 mm[Hg] HILDA ([facility]) Diastolic blood pressure 91 mm[Hg] 91 mm[Hg] HILDA ([facility]) Body height 72 [in_i] 72 [in_i] HILDA ([facility]) Body mass index (BMI) [Ratio] 30.11 kg/m2 30.11 kg/m2 HILDA ([facility]) Systolic blood pressure 135 mm[Hg] 135 mm[Hg] A THENA ([facility]) Systolic blood pressure 135 mm[Hg] 135 mm[Hg] A THENA ([facility]) Systolic blood pressure 148 mm[Hg] 148 mm[Hg] A THENA ([facility]) Body weight 3539.2 [oz_av] 3539.2 [oz_av] ATHEN A ([facility]) Diastolic blood pressure 91 mm[Hg] 91 mm[Hg] HILDA ([facility]) Body height 72 [in_i] 72 [in_i] HILDA ([facility]) Body mass index (BMI) [Ratio] 30.11 kg/m2 30.11 kg/m2 HILDA ([facility]) Systolic blood pressure 135 mm[Hg] 135 mm[Hg] A THENA ([facility]) Systolic blood pressure 135 mm[Hg] 135 mm[Hg] A THENA ([facility]) Systolic blood pressure 148 mm[Hg] 148 mm[Hg] A THENA ([facility]) Body weight 3539.2 [oz_av] 3539.2 [oz_av] ATHEN A ([facility]) Diastolic blood pressure 79 mm[Hg] 79 mm[Hg] HILDA ([facility]) Diastolic blood pressure 91 mm[Hg] 91 mm[Hg] IHLDA ([facility]) Diastolic blood pressure 91 mm[Hg] 91 mm[Hg] HILDA ([facility]) Body height 72 [in_i] 72 [in_i] HILDA ([facility]) Body mass index (BMI) [Ratio] 30.11 kg/m2 30.11 kg/m2 HILDA ([facility]) Systolic blood pressure 135 mm[Hg] 135 mm[Hg] A THENA ([facility]) Systolic blood pressure 135 mm[Hg] 135 mm[Hg] A THENA ([facility]) Systolic blood pressure 148 mm[Hg] 148 mm[Hg] A [facility] ([facility]) Body weight 3539.2 [oz_av] 3539.2 [oz_av] ATHEN A ([facility]) Diastolic blood pressure 79 mm[Hg] 79 mm[Hg] HILDA ([facility]) Diastolic blood pressure 91 mm[Hg] 91 mm[Hg] HILDA ([facility]) Diastolic blood pressure 91 mm[Hg] 91 mm[Hg] HILDA ([facility]) Body height 72 [in_i] 72 [in_i] HILDA ([facility]) Body mass index (BMI) [Ratio] 30.11 kg/m2 30.11 kg/m2 HILDA ([facility]) Systolic blood pressure 135 mm[Hg] 135 mm[Hg] A THENA ([facility]) Systolic blood pressure 135 mm[Hg] 135 mm[Hg] A THENA ([facility]) Systolic blood pressure 148 mm[Hg] 148 mm[Hg] A THENA ([facility]) Body weight 3539.2 [oz_av] 3539.2 [oz_av] ATHEN A ([facility]) Diastolic blood pressure 79 mm[Hg] 79 mm[Hg] HILDA ([facility]) Diastolic blood pressure 91 mm[Hg] 91 mm[Hg] HILDA ([facility]) Diastolic blood pressure 91 mm[Hg] 91 mm[Hg] HILDA ([facility]) Body height 72 [in_i] 72 [in_i] HILDA ([facility]) Body mass index (BMI) [Ratio] 30.11 kg/m2 30.11 kg/m2 HILDA ([facility]) Systolic blood pressure 135 mm[Hg] 135 mm[Hg] A [facility] ([facility]) Systolic blood pressure 135 mm[Hg] 135 mm[Hg] A [facility] ([facility]) Systolic blood pressure 148 mm[Hg] 148 mm[Hg] A [facility] ([facility]) Body weight 3539.2 [oz_av] 3539.2 [oz_av] ATHEN A ([facility]) Diastolic blood pressure 79 mm[Hg] 79 mm[Hg] HILDA ([facility]) Diastolic blood pressure 91 mm[Hg] 91 mm[Hg] HILDA ([facility]) Diastolic blood pressure 91 mm[Hg] 91 mm[Hg] HILDA ([facility]) Body height 72 [in_i] 72 [in_i] HILDA ([facility]) Body mass index (BMI) [Ratio] 30.11 kg/m2 30.11 kg/m2 HILDA ([facility]) Systolic blood pressure 135 mm[Hg] 135 mm[Hg] A THENA ([facility]) Systolic blood pressure 135 mm[Hg] 135 mm[Hg] A THENA ([facility]) Systolic blood pressure 148 mm[Hg] 148 mm[Hg] A [facility] ([facility]) Body weight 3539.2 [oz_av] 3539.2 [oz_av] ATHEN A ([facility]) Diastolic blood pressure 79 mm[Hg] 79 mm[Hg] HILDA ([facility]) Diastolic blood pressure 91 mm[Hg] 91 mm[Hg] HILDA ([facility]) Diastolic blood pressure 91 mm[Hg] 91 mm[Hg] HILDA ([facility]) Body height 72 [in_i] 72 [in_i] HILDA ([facility]) Body mass index (BMI) [Ratio] 30.11 kg/m2 30.11 kg/m2 HILDA ([facility]) Systolic blood pressure 135 mm[Hg] 135 mm[Hg] A THENA ([facility]) Systolic blood pressure 135 mm[Hg] 135 mm[Hg] A THENA ([facility]) Systolic blood pressure 148 mm[Hg] 148 mm[Hg] A [facility] ([facility]) Body weight 3539.2 [oz_av] 3539.2 [oz_av] ATHEN A ([facility]) Diastolic blood pressure 79 mm[Hg] 79 mm[Hg] HILDA ([facility]) Diastolic blood pressure 91 mm[Hg] 91 mm[Hg] HILDA ([facility]) Diastolic blood pressure 91 mm[Hg] 91 mm[Hg] HILDA ([facility]) Body height 72 [in_i] 72 [in_i] HILDA ([facility]) Body mass index (BMI) [Ratio] 30.11 kg/m2 30.11 kg/m2 HILDA ([facility]) Systolic blood pressure 135 mm[Hg] 135 mm[Hg] A THENA ([facility]) Systolic blood pressure 135 mm[Hg] 135 mm[Hg] A THENA ([facility]) Systolic blood pressure 148 mm[Hg] 148 mm[Hg] A THENA ([facility]) Body weight 3539.2 [oz_av] 3539.2 [oz_av] ATHEN A ([facility]) Diastolic blood pressure 79 mm[Hg] 79 mm[Hg] HILDA ([facility]) Diastolic blood pressure 91 mm[Hg] 91 mm[Hg] HILDA ([facility]) Diastolic blood pressure 91 mm[Hg] 91 mm[Hg] HILDA ([facility]) Body height 72 [in_i] 72 [in_i] HILDA ([facility]) Body mass index (BMI) [Ratio] 30.11 kg/m2 30.11 kg/m2 HILDA ([facility]) Systolic blood pressure 135 mm[Hg] 135 mm[Hg] A THENA ([facility]) Systolic blood pressure 135 mm[Hg] 135 mm[Hg] A THENA ([facility]) Systolic blood pressure 148 mm[Hg] 148 mm[Hg] A [facility] ([facility]) Body weight 3539.2 [oz_av] 3539.2 [oz_av] ATHEN A ([facility]) Diastolic blood pressure 79 mm[Hg] 79 mm[Hg] HILDA ([facility]) Diastolic blood pressure 91 mm[Hg] 91 mm[Hg] HILDA ([facility]) Diastolic blood pressure 91 mm[Hg] 91 mm[Hg] HILDA ([facility]) Body height 72 [in_i] 72 [in_i] HILDA ([facility]) Body mass index (BMI) [Ratio] 30.11 kg/m2 30.11 kg/m2 HILDA ([facility]) Systolic blood pressure 135 mm[Hg] 135 mm[Hg] A THENA ([facility]) Systolic blood pressure 135 mm[Hg] 135 mm[Hg] A THENA ([facility]) Systolic blood pressure 148 mm[Hg] 148 mm[Hg] A [facility] ([facility]) Body weight 3539.2 [oz_av] 3539.2 [oz_av] ATHEN A ([facility]) Diastolic blood pressure 79 mm[Hg] 79 mm[Hg] HILDA ([facility]) Diastolic blood pressure 91 mm[Hg] 91 mm[Hg] HILDA ([facility]) Diastolic blood pressure 91 mm[Hg] 91 mm[Hg] HILDA ([facility]) Body height 72 [in_i] 72 [in_i] HILDA ([facility]) Body mass index (BMI) [Ratio] 30.11 kg/m2 30.11 kg/m2 HILDA ([facility]) Systolic blood pressure 135 mm[Hg] 135 mm[Hg] A THENA ([facility]) Systolic blood pressure 135 mm[Hg] 135 mm[Hg] A THENA ([facility]) Systolic blood pressure 148 mm[Hg] 148 mm[Hg] A THENA ([facility]) Body weight 3539.2 [oz_av] 3539.2 [oz_av] ATHEN A ([facility]) Diastolic blood pressure 79 mm[Hg] 79 mm[Hg] HILDA ([facility]) Diastolic blood pressure 91 mm[Hg] 91 mm[Hg] HILDA ([facility]) Diastolic blood pressure 91 mm[Hg] 91 mm[Hg] HILDA ([facility]) Body height 72 [in_i] 72 [in_i] HILDA ([facility]) Body mass index (BMI) [Ratio] 30.11 kg/m2 30.11 kg/m2 HILDA ([facility]) Systolic blood pressure 135 mm[Hg] 135 mm[Hg] A THENA ([facility]) Systolic blood pressure 135 mm[Hg] 135 mm[Hg] A THENA ([facility]) Systolic blood pressure 148 mm[Hg] 148 mm[Hg] A THENA ([facility]) Body weight 3539.2 [oz_av] 3539.2 [oz_av] ATHEN A ([facility]) Body height 72 [in_i] 72 [in_i] HILDA ([facility]) Body mass index (BMI) [Ratio] 30.11 kg/m2 30.11 kg/m2 HILDA ([facility]) Systolic blood pressure 135 mm[Hg] 135 mm[Hg] A THENA ([facility]) Systolic blood pressure 135 mm[Hg] 135 mm[Hg] A THENA ([facility]) Systolic blood pressure 148 mm[Hg] 148 mm[Hg] A THENA ([facility]) Body weight 3539.2 [oz_av] 3539.2 [oz_av] ATHEN A ([facility]) Diastolic blood pressure 79 mm[Hg] 79 mm[Hg] HILDA ([facility]) Diastolic blood pressure 91 mm[Hg] 91 mm[Hg] HILDA ([facility]) Diastolic blood pressure 91 mm[Hg] 91 mm[Hg] HILDA ([facility]) Diastolic blood pressure 79 mm[Hg] 79 mm[Hg] HILDA ([facility]) Diastolic blood pressure 91 mm[Hg] 91 mm[Hg] HILDA ([facility]) Diastolic blood pressure 91 mm[Hg] 91 mm[Hg] HILDA ([facility]) Body height 72 [in_i] 72 [in_i] HILDA ([facility]) Body mass index (BMI) [Ratio] 30.11 kg/m2 30.11 kg/m2 HILDA ([facility]) Systolic blood pressure 135 mm[Hg] 135 mm[Hg] A THENA ([facility]) Systolic blood pressure 135 mm[Hg] 135 mm[Hg] A THENA ([facility]) Systolic blood pressure 148 mm[Hg] 148 mm[Hg] A [facility] ([facility]) Body weight 3539.2 [oz_av] 3539.2 [oz_av] ATHEN A ([facility]) Diastolic blood pressure 79 mm[Hg] 79 mm[Hg] HILDA ([facility]) Diastolic blood pressure 91 mm[Hg] 91 mm[Hg] HILDA ([facility]) Diastolic blood pressure 91 mm[Hg] 91 mm[Hg] HILDA ([facility]) Body height 72 [in_i] 72 [in_i] HILDA ([facility]) Body mass index (BMI) [Ratio] 30.11 kg/m2 30.11 kg/m2 HILDA ([facility]) Systolic blood pressure 135 mm[Hg] 135 mm[Hg] A THENA ([facility]) Systolic blood pressure 135 mm[Hg] 135 mm[Hg] A THENA ([facility]) Systolic blood pressure 148 mm[Hg] 148 mm[Hg] A THENA ([facility]) Body weight 3539.2 [oz_av] 3539.2 [oz_av] ATHEN A ([facility]) Diastolic blood pressure 79 mm[Hg] 79 mm[Hg] HILDA ([facility]) Diastolic blood pressure 91 mm[Hg] 91 mm[Hg] HILDA ([facility]) Diastolic blood pressure 91 mm[Hg] 91 mm[Hg] HILDA ([facility]) Body height 72 [in_i] 72 [in_i] HILDA ([facility]) Body mass index (BMI) [Ratio] 30.11 kg/m2 30.11 kg/m2 HILDA ([facility]) Systolic blood pressure 135 mm[Hg] 135 mm[Hg] A THENA ([facility]) Systolic blood pressure 135 mm[Hg] 135 mm[Hg] A THENA ([facility]) Systolic blood pressure 148 mm[Hg] 148 mm[Hg] A THENA ([facility]) Body weight 3539.2 [oz_av] 3539.2 [oz_av] ATHEN A ([facility]) Patient Treatment Plan of Care Planned Activity Planned Date Details Description Data Source (s) Amoxicillin 875 MG / Clavulanate 125 MG Oral Tablet 04/02/19 21 12:00:00 AM EST HILDA ([facility]) Amoxicillin 875 MG / Clavulanate 125 MG Oral Tablet 04/02/19 21 12:00:00 AM EST HILDA ([facility]) Amoxicillin 875 MG / Clavulanate 125 MG Oral Tablet 04/02/19 21 12:00:00 AM EST HILDA ([facility]) Amoxicillin 875 MG / Clavulanate 125 MG Oral Tablet 04/02/19 21 12:00:00 AM EST HILDA ([facility]) Amoxicillin 875 MG / Clavulanate 125 MG Oral Tablet 04/02/19 21 12:00:00 AM EST HILDA ([facility]) Amoxicillin 875 MG / Clavulanate 125 MG Oral Tablet 04/02/19 21 12:00:00 AM EST HILDA ([facility]) Amoxicillin 875 MG / Clavulanate 125 MG Oral Tablet 04/02/19 21 12:00:00 AM EST [place] ([facility]) Amoxicillin 875 MG / Clavulanate 125 MG Oral Tablet 04/02/19 21 12:00:00 AM EST [place] ([facility]) Amoxicillin 875 MG / Clavulanate 125 MG Oral Tablet 04/02/19 21 12:00:00 AM EST [place] ([facility]) Amoxicillin 875 MG / Clavulanate 125 MG Oral Tablet 04/02/19 21 12:00:00 AM EST [place] ([facility]) Amoxicillin 875 MG / Clavulanate 125 MG Oral Tablet 04/02/19 21 12:00:00 AM EST [place] ([facility]) Amoxicillin 875 MG / Clavulanate 125 MG Oral Tablet 04/02/19 21 12:00:00 AM EST [place] ([facility]) Amoxicillin 875 MG / Clavulanate 125 MG Oral Tablet 04/02/19 21 12:00:00 AM EST [place] ([facility]) Amoxicillin 875 MG / Clavulanate 125 MG Oral Tablet 04/02/19 21 12:00:00 AM EST [place] ([facility]) Amoxicillin 875 MG / Clavulanate 125 MG Oral Tablet 04/02/19 21 12:00:00 AM EST [place] ([facility]) Amoxicillin 875 MG / Clavulanate 125 MG Oral Tablet 04/02/19 21 12:00:00 AM EST [place] ([facility]) Amoxicillin 875 MG / Clavulanate 125 MG Oral Tablet 04/02/19 21 12:00:00 AM EST [place] ([facility]) Amoxicillin 875 MG / Clavulanate 125 MG Oral Tablet 04/02/19 21 12:00:00 AM EST [place] ([facility]) Amoxicillin 875 MG / Clavulanate 125 MG Oral Tablet 04/02/19 21 12:00:00 AM EST [place] ([facility]) Amoxicillin 875 MG / Clavulanate 125 MG Oral Tablet 04/02/19 21 12:00:00 AM EST [place] ([facility]) Amoxicillin 875 MG / Clavulanate 125 MG Oral Tablet 04/02/19 21 12:00:00 AM EST [place] ([facility]) Amoxicillin 875 MG / Clavulanate 125 MG Oral Tablet 04/02/19 21 12:00:00 AM EST [place] ([facility]) Amoxicillin 875 MG / Clavulanate 125 MG Oral Tablet 04/02/19 21 12:00:00 AM EST [place] ([facility]) Escitalopram 10 MG Oral Tablet [Lexapro] 10/28/2019 12:00:00 AM EDT [place] ([facility]) Escitalopram 10 MG Oral Tablet [Lexapro] 10/28/2019 12:00:00 AM EDT [place] ([facility]) Escitalopram 10 MG Oral Tablet [Lexapro] 10/28/2019 12:00:00 AM EDT [place] ([facility]) Escitalopram 10 MG Oral Tablet [Lexapro] 10/28/2019 12:00:00 AM EDT [place] ([facility]) Escitalopram 10 MG Oral Tablet [Lexapro] 10/28/2019 12:00:00 AM EDT [place] ([facility]) Escitalopram 10 MG Oral Tablet [Lexapro] 10/28/2019 12:00:00 AM EDT [place] ([facility]) Escitalopram 10 MG Oral Tablet [Lexapro] 10/28/2019 12:00:00 AM EDT [place] ([facility]) Escitalopram 10 MG Oral Tablet [Lexapro] 10/28/2019 12:00:00 AM EDT [place] ([facility]) Escitalopram 10 MG Oral Tablet [Lexapro] 10/28/2019 12:00:00 AM EDT [place] ([facility]) Escitalopram 10 MG Oral Tablet [Lexapro] 10/28/2019 12:00:00 AM EDT [place] ([facility]) Escitalopram 10 MG Oral Tablet [Lexapro] 10/28/2019 12:00:00 AM EDT [place] ([facility]) Escitalopram 10 MG Oral Tablet [Lexapro] 10/28/2019 12:00:00 AM EDT [place] ([facility]) Escitalopram 10 MG Oral Tablet [Lexapro] 10/28/2019 12:00:00 AM EDT [place] ([facility]) Escitalopram 10 MG Oral Tablet [Lexapro] 10/28/2019 12:00:00 AM EDT [place] ([facility]) Escitalopram 10 MG Oral Tablet [Lexapro] 10/28/2019 12:00:00 AM EDT [place] ([facility]) Escitalopram 10 MG Oral Tablet [Lexapro] 10/28/2019 12:00:00 AM EDT [place] ([facility]) Escitalopram 10 MG Oral Tablet [Lexapro] 10/28/2019 12:00:00 AM EDT [place] ([facility]) Escitalopram 10 MG Oral Tablet [Lexapro] 10/28/2019 12:00:00 AM EDT [place] ([facility]) Escitalopram 10 MG Oral Tablet [Lexapro] 10/28/2019 12:00:00 AM EDT [place] ([facility]) Escitalopram 10 MG Oral Tablet [Lexapro] 10/28/2019 12:00:00 AM EDT [place] ([facility]) Escitalopram 10 MG Oral Tablet [Lexapro] 10/28/2019 12:00:00 AM EDT [place] ([facility]) Escitalopram 10 MG Oral Tablet [Lexapro] 10/28/2019 12:00:00 AM EDT [place] ([facility]) Escitalopram 10 MG Oral Tablet [Lexapro] 10/28/2019 12:00:00 AM EDT [place] ([facility]) Escitalopram 10 MG Oral Tablet [Lexapro] 09/10/2019 12:00:00 AM EDT [place] ([facility]) Escitalopram 10 MG Oral Tablet [Lexapro] 09/10/2019 12:00:00 AM EDT [place] ([facility]) Trazodone Hydrochloride 50 MG Oral Tablet [place] ([facility]) Sumatriptan 25 MG Oral Tablet [place] ([facility]) Omeprazole 20 MG Delayed Release Oral Capsule [place] ([facility]) Lorazepam 1 MG Oral Tablet [place] ([facility]) Hydroxyzine Hydrochloride 25 MG Oral Tablet [place] ([facility]) fluticasone propionate 50 mcg/actuation nasal spray,suspension [place] 1 spray every day by intranasal route as needed. [facility] ([facility]) cetirizine hydrochloride 10 MG Oral Tablet [place] ([facility]) albuterol sulfate HFA 90 mcg/actuation a erosol inhaler INHALE 2 PUFFS BY MOUTH EVERY 4 HOURS NEEDED [place] ( [facility]) Trazodone Hydrochloride 50 MG Oral Tablet [place] ([facility]) Sumatriptan 25 MG Oral Tablet [place] ([facility]) Omeprazole 20 MG Delayed Release Oral Capsule [place] ([facility]) Lorazepam 1 MG Oral Tablet A [place] ([facility]) Hydroxyzine Hydrochloride 25 MG Oral Tablet [place] ([facility]) fluticasone propionate 50 mcg/actuation nasal spray,suspension [place] 1 spray every day by intranasal route as needed. [facility] ([facility]) cetirizine hydrochloride 10 MG Oral Tablet [place] ([facility]) albuterol sulfate HFA 90 mcg/actuation a erosol inhaler INHALE 2 PUFFS BY MOUTH EVERY 4 HOURS NEEDED [place] ( [facility]) cetirizine hydrochloride 10 MG Oral Tablet [place] ([facility]) Trazodone Hydrochloride 50 MG Oral Tablet [place] ([facility]) cetirizine hydrochloride 10 MG Oral Tablet [place] ([facility]) Trazodone Hydrochloride 50 MG Oral Tablet [place] ([facility]) cetirizine hydrochloride 10 MG Oral Tablet [place] ([facility]) Trazodone Hydrochloride 50 MG Oral Tablet [place] ([facility]) cetirizine hydrochloride 10 MG Oral Tablet [place] ([facility]) Trazodone Hydrochloride 50 MG Oral Tablet [place] ([facility]) cetirizine hydrochloride 10 MG Oral Tablet [place] ([facility]) Trazodone Hydrochloride 50 MG Oral Tablet [place] ([facility]) cetirizine hydrochloride 10 MG Oral Tablet [place] ([facility]) Trazodone Hydrochloride 50 MG Oral Tablet [place] ([facility]) cetirizine hydrochloride 10 MG Oral Tablet [place] ([facility]) Trazodone Hydrochloride 50 MG Oral Tablet [place] ([facility]) cetirizine hydrochloride 10 MG Oral Tablet [place] ([facility]) Trazodone Hydrochloride 50 MG Oral Tablet [place] ([facility]) cetirizine hydrochloride 10 MG Oral Tablet [place] ([facility]) Trazodone Hydrochloride 50 MG Oral Tablet [place] ([facility]) cetirizine hydrochloride 10 MG Oral Tablet [place] ([facility]) Trazodone Hydrochloride 50 MG Oral Tablet [place] ([facility]) cetirizine hydrochloride 10 MG Oral Tablet [place] ([facility]) Trazodone Hydrochloride 50 MG Oral Tablet [place] ([facility]) cetirizine hydrochloride 10 MG Oral Tablet [place] ([facility]) Trazodone Hydrochloride 50 MG Oral Tablet [place] ([facility]) cetirizine hydrochloride 10 MG Oral Tablet [place] ([facility]) Trazodone Hydrochloride 50 MG Oral Tablet [place] ([facility]) cetirizine hydrochloride 10 MG Oral Tablet [place] ([facility]) Trazodone Hydrochloride 50 MG Oral Tablet [place] ([facility]) cetirizine hydrochloride 10 MG Oral Tablet [place] ([facility]) Trazodone Hydrochloride 50 MG Oral Tablet [place] ([facility]) cetirizine hydrochloride 10 MG Oral Tablet [place] ([facility]) Trazodone Hydrochloride 50 MG Oral Tablet [place] ([facility]) cetirizine hydrochloride 10 MG Oral Tablet [place] ([facility]) Trazodone Hydrochloride 50 MG Oral Tablet [place] ([facility]) cetirizine hydrochloride 10 MG Oral Tablet [place] ([facility]) Trazodone Hydrochloride 50 MG Oral Tablet [place] ([facility]) Trazodone Hydrochloride 50 MG Oral Tablet [place] ([facility]) Trazodone Hydrochloride 50 MG Oral Tablet [place] ([facility]) Trazodone Hydrochloride 50 MG Oral Tablet [place] ([facility]) Hydroxyzine Hydrochloride 10 MG Oral Tablet [place] ([facility]) Escitalopram 10 MG Oral Tablet [place] ([facility]) Trazodone Hydrochloride 50 MG Oral Tablet [place] ([facility]) Hydroxyzine Hydrochloride 10 MG Oral Tablet [place] ([facility]) Escitalopram 10 MG Oral Tablet [place] ([facility]) Trazodone Hydrochloride 50 MG Oral Tablet [place] ([facility]) Hydroxyzine Hydrochloride 10 MG Oral Tablet [place] ([facility]) Escitalopram 10 MG Oral Tablet [place] ([facility]) Trazodone Hydrochloride 50 MG Oral Tablet [place] ([facility]) Hydroxyzine Hydrochloride 10 MG Oral Tablet [place] ([facility]) Escitalopram 10 MG Oral Tablet [place] ([facility]) Hydroxyzine Hydrochloride 10 MG Oral Tablet [place] ([facility]) Escitalopram 10 MG Oral Tablet [place] ([facility]) Hydroxyzine Hydrochloride 10 MG Oral Tablet [place] ([facility]) Escitalopram 10 MG Oral Tablet [place] ([facility] Hydroxyzine Hydrochloride 10 MG Oral Tablet [place] ([facility]) Escitalopram 10 MG Oral Tablet [place] ([facility]) Hydroxyzine Hydrochloride 10 MG Oral Tablet [place] ([facility]) Escitalopram 10 MG Oral Tablet [place] ([facility]) Hydroxyzine Hydrochloride 10 MG Oral Tablet [place] ([facility]) Escitalopram 10 MG Oral Tablet [place] ([facility]) Hydroxyzine Hydrochloride 10 MG Oral Tablet [place] ([facility]) Escitalopram 10 MG Oral Tablet [place] ([facility] Trazodone Hydrochloride 50 MG Oral Tablet [place] ([facility]) cetirizine hydrochloride 10 MG Oral Tablet [place] ([facility])
--- OUTSIDE RECORDS SUMMARY | 2020-11-25 16:40 | CCD ---
Author Author [facility] Address Unknown Phone Unavailable Care Team Providers Care Sawmill Supervisor Name Role Phone Arsh Melissa MD Unavailable [...] MD Unavailable Unavailable LOVEShilpa MD Unavailable Unavailable LOVEShipla MD Unavailable Unavailable LOVEShilpa MD Unavailable Unavailable [...] LOVE MD Unavailable Unavailable Merlene Sadler Unavailable [phone] Goldsmith, Moon Ceballos MD Unavailable Unavailable Goldsmith, [...] Unavailable Unavailable DICKERSON, CHAYO Unavailable Unavailable DICKERSON, CAHYO Unavailable Unavailable DICKERSON, CHAYO Unavailable Unavailable DICKERSON, CHAYO Unavailable Unavailable Maria O Ruthie DONAHUE Unavailable Unavailable Maria, O Robiah Unavailable Unavailable Maria, O Robiah Unavailable Unavailable Maria, O Ruthie DONAHUE Unavailable Unavailable Maria, O Ruthie DONAHUE Unavailable Unavailable Maria, O Ruthie DOANHUE Unavailable Unavailable Maria, O Robiah Unavailable Unavailable [...] is protected by Article 27-F of the [facility] Public Health law. If you continue you may have access to information: Regarding HIV / AIDS; Provided by facilities licensed or operated by the [facility] Office of Mental Health; or Provided by the [facility] Office for People With Developmental Disabilities. If such information is present, then the following [facility] mandated warning applies: This information has [...] Allergy to substance Allergy to substance [facility] ([facility]) Allergy to substance Allergy to substance Allergy to substance [facility] ([facility]) Encounters Encounter Providers Location Date Indications Data Source(s ) Merlene Sadler LMSW: [address], [place] [address], Ph. Attender: Merlene Sadler [facility] Medical 11/24/2020 12:00:00 AM EDT [facility] ([facility]) Terry Quiroga, RPA-C: [address], [place] [address], Ph. Attender: TERRY QUIROGA RPA-C [facility] Medical 11/22/2020 12:00:00 AM EDT [facility] ([facility]) Terry Quiroga RPA-C: [address], [place] [address], Ph. Attender: TERRY QUIROGA RPA-C [facility] Medical 11/22/2020 12:00:00 AM EDT [facility] ([facility]) Merlene Sadler, VARIETY PERFORMER: [address], [place] [address], Ph. Attender: Merlene Sadler [facility] Medical 10/28/2020 12:00:00 AM EDT [facility] ([facility]) Merlene Sadler, VARIETY PERFORMER: [address], [place] [address], Ph. Attender: Merlene Sadler [facility] Medical 10/28/2020 12:00:00 AM EDT [facility] ([facility]) Merlene Sadler, VARIETY PERFORMER: [address], [place] [address], Ph. Attender: Merlene Sadler [facility] Medical 10/28/2020 12:00:00 AM EDT [facility] ([facility]) Merlene Davisjeffrey, VARIETY PERFORMER: [address], [place] [address], Ph. Attender: Merlene Sadler [facility] Medical 10/07/2020 12:00:00 AM EDT [facility] ([facility]) Merlene Sadler, VARIETY PERFORMER: [address], [place] [address], Ph. Attender: Merlene Sadler [facility] Medical 10/07/2020 12:00:00 AM EDT [facility] ([facility]) Merlene Sadler, VARIETY PERFORMER: [address], [place] [address], Ph. Attender: Merlene Sadler [facility] Medical 10/07/2020 12:00:00 AM EDT [facility] ([facility]) Merlene Sadler, VARIETY PERFORMER: [address], [place] [address], Ph. Attender: Merlene Sadler [facility] Medical 10/07/2020 12:00:00 AM EDT [facility] ([facility]) Merlene Sadler, VARIETY PERFORMER: [address], [place] [address], Ph. Attender: Merlene Sadler [facility] Medical 09/23/2020 12:00:00 AM EDT [facility] ([facility]) Merlene Sadler, VARIETY PERFORMER: [address], [place] [address], Ph. Attender: Merlene Sadler [facility] Medical 09/23/2020 12:00:00 AM EDT [facility] ([facility]) Merlene Sadler, VARIETY PERFORMER: [address], [place] [address], Ph. Attender: Merlene Sadler [facility] Medical 09/23/2020 12:00:00 AM EDT [facility] ([facility]) Merlene Sadler, VARIETY PERFORMER: [address], [place] [address], Ph. Attender: Merlene Sadler [facility] Medical 09/23/2020 12:00:00 AM EDT [facility] ([facility]) Merlene Sadler, VARIETY PERFORMER: [address], [place] [address], Ph. Attender: Merlene Sadler [facility] Medical 09/23/2020 12:00:00 AM EDT [facility] ([facility]) Merlene Sadler, VARIETY PERFORMER: [address], [place] [address], Ph. Attender: Merlene Sadler [facility] Medical 09/09/2020 12:00:00 AM EDT [facility] ([facility]) Merlene Sadler, VARIETY PERFORMER: [address], [place] [address], Ph. Attender: Merlene Sadler [facility] Medical 09/09/2020 12:00:00 AM EDT [facility] ([facility]) Merlene Sadler, VARIETY PERFORMER: [address], [place] [address], Ph. Attender: Merlene Sadler [facility] Medical 09/09/2020 12:00:00 AM EDT [facility] ([facility]) Merlene Sadler, VARIETY PERFORMER: [address], [place] [address], Ph. Attender: Merlene Sadler [facility] Medical 09/09/2020 12:00:00 AM EDT [facility] ([facility]) Merlene Sadler, VARIETY PERFORMER: [address], [place] [address], Ph. Attender: Merlene Sadler [facility] Medical 09/09/2020 12:00:00 AM EDT [facility] ([facility]) Merlene Sadler, [facility]: [address], [place] [address], Ph. Attender: Merlene Sadler [facility] Medical 09/09/2020 12:00:00 AM EDT [facility] ([facility]) Merlene Sadler VARIETY PERFORMER: [address], [place] [address], Ph. Attender: Merlene Sadler [facility] Medical 08/26/2020 12:00:00 AM EDT [facility] ([facility]) Merlene Sadler, VARIETY PERFORMER: [address], [place] [address], Ph. Attender: Merlene Sadler [facility] Medical 08/26/2020 12:00:00 AM EDT [facility] ([facility]) Merlene Sadler VARIETY PERFORMER: [address], [place] [address], Ph. Attender: Merlene Sadler [facility] Medical 08/26/2020 12:00:00 AM EDT [place] ([facility]) Merlene Sadler VARIETY PERFORMER: [address], [place] [address], Ph. Attender: Merlene Sadler [facility] Medical 08/26/2020 12:00:00 AM EDT [facility] ([facility]) Merlene Sadler, VARIETY PERFORMER: [address], [place] [address], Ph. Attender: Merlene Sadler [facility] Medical 08/26/2020 12:00:00 AM EDT [facility] ([facility]) Merlene Sadler, [facility]: [address], [place] [address], Ph. Attender: Merlene Sadler [facility] Medical 08/26/2020 12:00:00 AM EDT [facility] ([facility]) Merlene Sadler LMSW: [address], [place] [address], Ph. Attender: Merlene Sadler [facility] Medical 08/26/2020 12:00:00 AM EDT [facility] ([facility]) Merlene Sadler, VARIETY PERFORMER: [address], [place] [address], Ph. Attender: Merlene Sadler [facility] Medical 08/18/2020 12:00:00 AM EDT [facility] ([facility]) Merlene Sadler [facility]: [address], [place] [address], Ph. Attender: Merlene Sadler [facility] Medical 08/18/2020 12:00:00 AM EDT [facility] ([facility]) Merlene Sadler VARIETY PERFORMER: [address], [place] [address], Ph. Attender: Merlene Sadler [facility] Medical 08/18/2020 12:00:00 AM EDT [facility] ([facility]) Merlene Sadler, VARIETY PERFORMER: [address], [place] [address], Ph. Attender: Merlene Sadler [facility] Medical 08/18/2020 12:00:00 AM EDT [facility] ([facility]) Merlene Sadler, VARIETY PERFORMER: [address], [place] [address], Ph. Attender: Merlene Sadler [facility] Medical 08/18/2020 12:00:00 AM EDT [facility] ([facility]) Merlene Sadler LMSW: [address], [place] [address], Ph. Attender: Merlene Sadler [facility] Medical 08/18/2020 12:00:00 AM EDT [facility] ([facility]) Merlene Sadler, VARIETY PERFORMER: [address], [place] [address], Ph. Attender: Merlene Sadler [facility] Medical 08/18/2020 12:00:00 AM EDT [facility] ([facility]) Merlene Sadler, VARIETY PERFORMER: [address], [place] [address], Ph. Attender: Merlene Sadler [facility] Medical 08/18/2020 12:00:00 AM EDT [facility] ([facility]) Merlene Sadler, VARIETY PERFORMER: [address], [place] [address], Ph. Attender: Merlene Sadler [facility] Medical 08/18/2020 12:00:00 AM EDT [facility] ([facility]) Merlene Sadler, [facility]: [address], [place] [address], Ph. Attender: Merlene Sadler [facility] Medical 08/18/2020 12:00:00 AM EDT [facility] ([facility]) Herbert Melissa MD: [address] [place] [address], Ph. Attender: Herbert Melissa MD [facility] Medical 08/12/2020 12:00:00 AM EDT [facility] ([facility]) Merlene Sadler [facility]: [address], [place] [address], Ph. Attender: Merlene Sadler [facility] Medical 08/12/2020 12:00:00 AM EDT [facility] ([facility]) Herbert Melissa MD: [address] [place] [address], Ph. Attender: Herbert Melissa MD [facility] Medical 08/12/2020 12:00:00 AM EDT [facility] ([facility]) Merlene Sadler, [facility]: [address], [place] [address], Ph. Attender: Merlene Sadler [facility] Medical 08/12/2020 12:00:00 AM EDT [facility] ([facility]) Herbert Melissa MD: [address] [place] [address], Ph. Attender: Herbert Melissa MD [facility] Medical 08/12/2020 12:00:00 AM EDT [facility] ([facility]) Merlene Sadler [facility]: [address], [place] [address], Ph. Attender: Merlene Doroteo [facility] Medical 08/12/2020 12:00:00 AM EDT [facility] ([facility]) Herbert Melissa MD: [address], [place] [address], Ph. Attender: Herbert Melissa MD [facility] Medical 08/12/2020 12:00:00 AM EDT [facility] ([facility]) Merlene ELISE SadlerSW: [address], [place] [address], Ph. Attender: Merlene Sadler [facility] Medical 08/12/2020 12:00:00 AM EDT [facility] ([facility]) Herbert Melissa MD: [address] [place] [address], Ph. Attender: Herbert Melissa MD [facility] Medical 08/12/2020 12:00:00 AM EDT [facility] ([facility]) Merlene Sadler LMSW: [address], [place] [address], Ph. Attender: Merlene Sadler [facility] Medical 08/12/2020 12:00:00 AM EDT [facility] ([facility]) Herbert Melissa MD: [address] [place] [address], Ph. Attender: Herbert Melissa MD [facility] Medical 08/12/2020 12:00:00 AM EDT [facility] ([facility]) Merlene Pupillo, VARIETY PERFORMER: [address], [place] [address], Ph. Attender: Merlene Sadler [facility] Medical 08/12/2020 12:00:00 AM EDT [facility] ([facility]) Herbert Melissa MD: [address], [place] [address], Ph. Attender: Herbert Melissa MD [facility] Medical 08/12/2020 12:00:00 AM EDT [facility] ([facility]) Merlene Sadler, [facility]: [address], [place] [address], Ph. Attender: Merlene Davisjeffrey [facility] Medical 08/12/2020 12:00:00 AM EDT [facility] ([facility]) Herbert Melissa MD: [address] [place] [address], Ph. Attender: Herbert Melissa MD [facility] Medical 08/12/2020 12:00:00 AM EDT [facility] ([facility]) Merlene Sadler, [facility]: [address], [place] [address], Ph. Attender: Merlene Davisjeffrey [facility] Medical 08/12/2020 12:00:00 AM EDT [facility] ([facility]) Herbert Melissa MD: [address] [place] [address], Ph. Attender: Herbert Melissa MD [facility] Medical 08/12/2020 12:00:00 AM EDT [facility] ([facility]) Merlene Sadler, VARIETY PERFORMER: [address], [place] [address], Ph. Attender: Merlene Sadler [facility] Medical 08/12/2020 12:00:00 AM EDT [facility] ([facility]) Herbert Melissa MD: [address] [place] [address], Ph. Attender: Herbert Melissa MD [facility] Medical 08/12/2020 12:00:00 AM EDT [facility] ([facility]) Merlene Sadler, VARIETY PERFORMER: [address], [place] [address], Ph. Attender: Merlene Sadler [facility] Medical 08/12/2020 12:00:00 AM EDT [facility] ([facility]) Herbert Melissa MD: [address] [place] [address], Ph. Attender: Herbert Melissa MD [facility] Medical 08/12/2020 12:00:00 AM EDT [facility] ([facility]) Merlene Sadler, [facility]: [address], [place] [address], Ph. Attender: Merlene Sadler [facility] Medical 08/12/2020 12:00:00 AM EDT [facility] ([facility]) Merlene Sadler, [facility]: [address], [place] [address], Ph. Attender: Merlene Sadler [facility] Medical 08/05/2020 12:00:00 AM EDT [facility] ([facility]) Merlene Sadler, VARIETY PERFORMER: [address], [place] [address], Ph. Attender: Merlene Sadler [facility] Medical 08/05/2020 12:00:00 AM EDT [facility] ([facility]) Merlene Sadler, VARIETY PERFORMER: [address], [place] [address], Ph. Attender: Merlene Sadler [facility] Medical 08/05/2020 12:00:00 AM EDT [facility] ([facility]) Merlene Sadler, VARIETY PERFORMER: [address], [place] [address], Ph. Attender: Merlene Sadler [facility] Medical 08/05/2020 12:00:00 AM EDT [facility] ([facility]) Merlene Sadler, VARIETY PERFORMER: [address], [place] [address], Ph. Attender: Merlene Sadler [facility] Medical 08/05/2020 12:00:00 AM EDT [facility] ([facility]) Merlene Sadler, VARIETY PERFORMER: [address], [place] [address], Ph. Attender: Merlene Sadler [facility] Medical 08/05/2020 12:00:00 AM EDT [facility] ([facility]) Merlene Sadler, VARIETY PERFORMER: [address], [place] [address], Ph. Attender: Merlene Sadler [facility] Medical 08/05/2020 12:00:00 AM EDT [facility] ([facility]) Merlene Sadler, VARIETY PERFORMER: [address], [place] [address], Ph. Attender: Merlene Sadler [facility] Medical 08/05/2020 12:00:00 AM EDT [facility] ([facility]) Merlene Sadler, [facility]: [address], [place] [address], Ph. Attender: Merlene Sadler [facility] Medical 08/05/2020 12:00:00 AM EDT [facility] ([facility]) Merlene Sadler, VARIETY PERFORMER: [address], [place] [address], Ph. Attender: Merlene Sadler [facility] Medical 08/05/2020 12:00:00 AM EDT [facility] ([facility]) Merlene Sadler, VARIETY PERFORMER: [address], [place] [address], Ph. Attender: Merlene Sadler [facility] Medical 08/05/2020 12:00:00 AM EDT [facility] ([facility]) Merlene Sadler, VARIETY PERFORMER: [address], [place] [address], Ph. Attender: Merlene Sadler [facility] Medical 08/05/2020 12:00:00 AM EDT [facility] ([facility]) Merlene Sadler VARIETY PERFORMER: [address], [place] [address], Ph. Attender: Merlene Sadler [facility] Medical 07/29/2020 12:00:00 AM EDT [facility] ([facility]) Merlene Sadler, VARIETY PERFORMER: [address], [place] [address], Ph. Attender: Merlene Sadler [facility] Medical 07/29/2020 12:00:00 AM EDT [facility] ([facility]) Merlene Sadler, [facility]: [address], [place] [address], Ph. Attender: Merlene Sadler [facility] Medical 07/29/2020 12:00:00 AM EDT [facility] ([facility]) Merlene Sadler [facility]: [address], [place] [address], Ph. Attender: Melrene Sadler [facility] Medical 07/29/2020 12:00:00 AM EDT [facility] ([facility]) Merlene Sadler, [facility]: [address], [place] [address], Ph. Attender: Merlene Sadler [facility] Medical 07/29/2020 12:00:00 AM EDT [facility] ([facility]) Merlene Sadler, [facility]: [address], [place] [address], Ph. Attender: Merlene Sadler [facility] Medical 07/29/2020 12:00:00 AM EDT [facility] ([facility]) Merlene Sadler [facility]: [address], [place] [address], Ph. Attender: Merlene Sadler [facility] Medical 07/29/2020 12:00:00 AM EDT [facility] ([facility]) Merlene Sadler, [facility]: [address], [place] [address], Ph. Attender: Merlene Sadler [facility] Medical 07/29/2020 12:00:00 AM EDT [facility] ([facility]) Merlene Sadler, [facility]: [address], [place] [address], Ph. Attender: Merlene Sadler [facility] Medical 07/29/2020 12:00:00 AM EDT [facility] ([facility]) Merlene Sadler VARIETY PERFORMER: [address], [place] [address], Ph. Attender: Merlene Sadler [facility] Medical 07/29/2020 12:00:00 AM EDT [facility] ([facility]) Merlene Sadler, VARIETY PERFORMER: [address], [place] [address], Ph. Attender: Merlene Sadler [facility] Medical 07/29/2020 12:00:00 AM EDT [facility] ([facility]) Merlene Sadler, VARIETY PERFORMER: [address], [place] [address], Ph. Attender: Merlene Sadler [facility] Medical 07/29/2020 12:00:00 AM EDT [facility] ([facility]) Merlene Sadler [facility]: [address], [place] [address], Ph. Attender: Merlene Sadler [facility] Medical 07/29/2020 12:00:00 AM EDT [facility] ([facility]) Merlene Sadler, VARIETY PERFORMER: [address], [place] [address], Ph. Attender: Merlene Sadler [facility] Medical 07/22/2020 12:00:00 AM EDT [facility] ([facility]) Herbert Melissa MD: [address] [place] [address], Ph. Attender: Herbert Melissa MD [facility] Medical 07/22/2020 12:00:00 AM EDT [facility] ([facility]) Merlene Sadler, [facility]: [address], [place] [address], Ph. Attender: Merlenemarie Sadler [facility] Medical 07/22/2020 12:00:00 AM EDT [facility] ([facility]) Herbert Melissa MD: [address] [place] [address], Ph. Attender: Herbert Melissa MD [facility] Medical 07/22/2020 12:00:00 AM EDT [facility] ([facility]) Merlene Sadler [facility]: [address], [place] [address], Ph. Attender: Merlene Davisjeffrey [facility] Medical 07/22/2020 12:00:00 AM EDT [facility] ([facility]) Herbert Melissa MD: [address] [place] [address], Ph. Attender: Herbert Melissa MD [facility] Medical 07/22/2020 12:00:00 AM EDT H[facility] ([facility]) Merlene Davisjeffrey [facility]: [address], [place] [address], Ph. Attender: Merlene Ryanjeffrey [facility] Medical 07/22/2020 12:00:00 AM EDT [facility] ([facility]) Herbert Melissa MD: [address] [place] [address], Ph. Attender: Herbert Melissa MD [facility] Medical 07/22/2020 12:00:00 AM EDT H[facility] ([facility]) Merlene Sadler, [facility]: [address], [place] [address], Ph. Attender: Merlene Sadler [facility] Medical 07/22/2020 12:00:00 AM EDT [facility] ([facility]) Herbert Melissa MD: [address] [place] [address], Ph. Attender: Herbert Melissa MD [facility] Medical 07/22/2020 12:00:00 AM EDT H[facility] ([facility]) Merlene Sadler [facility]: [address], [place] [address], Ph. Attender: Merlene Davisjeffrey [facility] Medical 07/22/2020 12:00:00 AM EDT [facility] ([facility]) Herbert Melissa MD: [address] [place] [address], Ph. Attender: Herbert Melissa MD [facility] Medical 07/22/2020 12:00:00 AM EDT [facility] ([facility]) Merlene Sadler, [facility]: [address], [place] [address], Ph. Attender: Merlene Davisjeffrey [facility] Medical 07/22/2020 12:00:00 AM EDT [facility] ([facility]) Herbert Melissa MD: [address] [place] [address], Ph. Attender: Herbert Melissa MD [facility] Medical 07/22/2020 12:00:00 AM EDT [facility] ([facility]) Merlene Sadler, [facility]: [address], [place] [address], Ph. Attender: Merlene Sadler [facility] Medical 07/22/2020 12:00:00 AM EDT [facility] ([facility]) Herbert Melissa MD: [address] [place] [address], Ph. Attender: Herbert Melissa MD [facility] Medical 07/22/2020 12:00:00 AM EDT [facility] ([facility]) Herbert Melissa MD: [address] [place] [address], Ph. Attender: Herbert Melissa MD [facility] Medical 07/22/2020 12:00:00 AM EDT [facility] ([facility]) Merlene Sadler VARIETY PERFORMER: [address], [place] [address], Ph. Attender: Merlene Davisjeffrey [facility] Medical 07/22/2020 12:00:00 AM EDT [facility] ([facility]) Herbert Melissa MD: [address] [place] [address], Ph. Attender: Herbert Melissa MD [facility] Medical 07/22/2020 12:00:00 AM EDT [facility] ([facility]) Merlene Sadler VARIETY PERFORMER: [address], [place] [address], Ph. Attender: Merlene Sadler [facility] Medical 07/22/2020 12:00:00 AM EDT [facility] ([facility]) Herbert Melissa MD: [address] [place] [address], Ph. Attender: Herbert Melissa MD [facility] Medical 07/22/2020 12:00:00 AM EDT [facility] ([facility]) Merlene Sadler, [facility]: [address], [place] [address], Ph. Attender: Merlene Sadler [facility] Medical 07/22/2020 12:00:00 AM EDT [facility] ([facility]) Herbert Melissa MD: [address] [place] [address], Ph. Attender: Herbert Melissa MD [facility] Medical 07/22/2020 12:00:00 AM EDT [facility] ([facility]) Merlene Sadler [facility]: [address], [place] [address], Ph. Attender: Merlene Sadler [facility] Medical 07/22/2020 12:00:00 AM EDT [facility] ([facility]) Merlene Sadler, [facility]: [address], [place] [address], Ph. Attender: Merlene Sadler [facility] Medical 07/22/2020 12:00:00 AM EDT [facility] ([facility]) Herbert Melissa MD: [address] [place] [address], Ph. Attender: Herbert Melissa MD [facility] Medical 07/22/2020 12:00:00 AM EDT [facility] ([facility]) Merlene Sadler, [facility]: [address], [place] [address], Ph. Attender: Merlene Sadler [facility] Medical 07/22/2020 12:00:00 AM EDT [facility] ([facility]) Herbert Melissa MD: [address] , [place] [address], Ph. Attender: Herbert Melissa MD [facility] Medical 07/22/2020 12:00:00 AM EDT [facility] ([facility]) Merlene Sadler, VARIETY PERFORMER: [address], [place] [address], Ph. Attender: Merlene Sadler [facility] Medical 07/01/2020 12:00:00 AM EDT [facility] ([facility]) Merlene Sadler, [facility]: [address], [place] [address], Ph. Attender: Merlene Sadler [facility] Medical 07/01/2020 12:00:00 AM EDT [facility] ([facility]) Merlene Sadler, [facility]: [address], [address], [place] [address], Ph. Attender: Merlene Sadler [facility] Medical 07/01/2020 12:00:00 AM EDT [facility] ([facility]) Merlene Sadler, [facility]: [address], [place] [address], Ph. Attender: Merlene Sadler [facility] Medical 07/01/2020 12:00:00 AM EDT [facility] ([facility]) Merlene Sadler, [facility]: [address], [address], [place] [address], Ph. Attender: Merlene Sadler [facility] Medical 07/01/2020 12:00:00 AM EDT [facility] ([facility]) Merlene Sadler, VARIETY PERFORMER: [address], [address], [place] [address], Ph. Attender: Merlene Sadler [facility] Medical 07/01/2020 12:00:00 AM EDT [facility] ([facility]) Merlene Sadler, VARIETY PERFORMER: [address], [place] [address], Ph. Attender: Merlene Sadler [facility] Medical 07/01/2020 12:00:00 AM EDT [facility] ([facility]) Merlene Sadler, VARIETY PERFORMER: [address], [place] [address], Ph. Attender: Merlene Sadler [facility] Medical 07/01/2020 12:00:00 AM EDT [facility] ([facility]) Merlene Sadler, VARIETY PERFORMER: [address], [place] [address], Ph. Attender: Merlene Sadler [facility] Medical 07/01/2020 12:00:00 AM EDT [facility] ([facility]) Merlene Sadler, VARIETY PERFORMER: [address], [place] [address], Ph. Attender: Merlene Sadler [facility] Medical 07/01/2020 12:00:00 AM EDT [facility] ([facility]) Merlene Sadler, VARIETY PERFORMER: [address], [place] [address], Ph. Attender: Merlene Sadler [facility] Medical 07/01/2020 12:00:00 AM EDT [facility] ([facility]) Merlene Sadler, VARIETY PERFORMER: [address], [address], [place] [address], Ph. Attender: Merlene Sadler [facility] Medical 07/01/2020 12:00:00 AM EDT [facility] ([facility]) Merlene Sadler, VARIETY PERFORMER: [address], [address], [place] [address], Ph. Attender: Merlene Sadler [facility] Medical 07/01/2020 12:00:00 AM EDT [facility] ([facility]) Merlene Sadler, VARIETY PERFORMER: [address], [place] [address], Ph. Attender: Merlene Sadler [facility] Medical 07/01/2020 12:00:00 AM EDT [facility] ([facility]) Merlene Sadler, VARIETY PERFORMER: [address], [place] [address], Ph. Attender: Merlene Sadler [facility] Medical 07/01/2020 12:00:00 AM EDT [facility] ([facility]) Merlene Sadler, VARIETY PERFORMER: [address], [place] [address], Ph. Attender: Merlene Sadler [facility] Medical 06/22/2020 12:00:00 AM EDT [facility] ([facility]) Merlene Sadler, VARIETY PERFORMER: [address], [address], [place] [address], Ph. Attender: Merlene Sadler [facility] Medical 06/22/2020 12:00:00 AM EDT [facility] ([facility]) Merlene Sadler, VARIETY PERFORMER: [address], [place] [address], Ph. Attender: Merlene Sadler [facility] Medical 06/22/2020 12:00:00 AM EDT [facility] ([facility]) Merlene Sadler, VARIETY PERFORMER: [address], [place] [address], Ph. Attender: Merlene Sadler [facility] Medical 06/22/2020 12:00:00 AM EDT [facility] ([facility]) Merlene Sadler, VARIETY PERFORMER: [address], [place] [address], Ph. Attender: Merlene Sadler [facility] Medical 06/22/2020 12:00:00 AM EDT [facility] ([facility]) Merlene Sadler, VARIETY PERFORMER: [address], [place] [address], Ph. Attender: Merlene Sadler [facility] Medical 06/22/2020 12:00:00 AM EDT [facility] ([facility]) Merlene Sadler, VARIETY PERFORMER: [address], [place] [address], Ph. Attender: Merlene Sadler [facility] Medical 06/22/2020 12:00:00 AM EDT [facility] ([facility]) Merlene Sadler, VARIETY PERFORMER: [address], [place] [address], Ph. Attender: Merlene Sadler [facility] Medical 06/22/2020 12:00:00 AM EDT [facility] ([facility]) Merlene Sadler, VARIETY PERFORMER: [address], [place] [address], Ph. Attender: Merlene Sadler [facility] Medical 06/22/2020 12:00:00 AM EDT [facility] ([facility]) Merlene Sadler, VARIETY PERFORMER: [address], [place] [address], Ph. Attender: Merlene Sadler [facility] Medical 06/22/2020 12:00:00 AM EDT [facility] ([facility]) Merlene Sadler, VARIETY PERFORMER: [address], [place] [address], Ph. Attender: Merlene Sadler [facility] Medical 06/22/2020 12:00:00 AM EDT [facility] ([facility]) Merlene Sadler, VARIETY PERFORMER: [address], [place] [address], Ph. Attender: Merlene Sadler [facility] Medical 06/22/2020 12:00:00 AM EDT [facility] ([facility]) Merlene Sadler, VARIETY PERFORMER: [address], [place] [address], Ph. Attender: Merlene Sadler [facility] Medical 06/22/2020 12:00:00 AM EDT [facility] ([facility]) Merlene Sadler, VARIETY PERFORMER: [address], [place] [address], Ph. Attender: Merlene Sadler [facility] Medical 06/22/2020 12:00:00 AM EDT [facility] ([facility]) Merlene Sadler, [facility]: [address], [address], [place] [address], Ph. Attender: Merlene Sadler [facility] Medical 06/22/2020 12:00:00 AM EDT [facility] ([facility]) Merlene Sadler, VARIETY PERFORMER: [address], [place] [address], Ph. Attender: Merlene Sadler [facility] Medical 06/22/2020 12:00:00 AM EDT [facility] ([facility]) Merlene Sadler, VARIETY PERFORMER: [address], [place] [address], Ph. Attender: Merlene Sadler [facility] Medical 06/17/2020 12:00:00 AM EDT [facility] ([facility]) Merlene Sadler, VARIETY PERFORMER: [address], [place] [address], Ph. Attender: Merlene Sadler [facility] Medical 06/17/2020 12:00:00 AM EDT [facility] ([facility]) Merlene Sadler, VARIETY PERFORMER: [address], [place] [address], Ph. Attender: Merlene Sadler [facility] Medical 06/17/2020 12:00:00 AM EDT [facility] ([facility]) Merlene Sadler, VARIETY PERFORMER: [address], [place] [address], Ph. Attender: Merlene Sadler [facility] Medical 06/17/2020 12:00:00 AM EDT [facility] ([facility]) Merlene Sadler, [facility]: [address], [place] [address], Ph. Attender: Merlene Sadler [facility] Medical 06/17/2020 12:00:00 AM EDT [facility] ([facility]) Merlene Sadler, VARIETY PERFORMER: [address], [place] [address], Ph. Attender: Merlene Sadler [facility] Medical 06/17/2020 12:00:00 AM EDT [facility] ([facility]) Merlene Sadler, VARIETY PERFORMER: [address], [place] [address], Ph. Attender: Merlene Sadler [facility] Medical 06/17/2020 12:00:00 AM EDT [facility] ([facility]) Merlene Sadler, VARIETY PERFORMER: [address], [place] [address], Ph. Attender: Merlene Sadler [facility] Medical 06/17/2020 12:00:00 AM EDT [facility] ([facility]) Merlene Sadler VARIETY PERFORMER: [address], [place] [address], Ph. Attender: Merlene Sadler [facility] Medical 06/17/2020 12:00:00 AM EDT [facility] ([facility]) Merlene Sadler, VARIETY PERFORMER: [address], [place] [address], Ph. Attender: Merlene Sadler [facility] Medical 06/17/2020 12:00:00 AM EDT [facility] ([facility]) Merlene Sadler, [facility]: [address], [place] [address], Ph. Attender: Merlene Sadler [facility] Medical 06/17/2020 12:00:00 AM EDT [facility] ([facility]) Merlene Sadler VARIETY PERFORMER: [address], [place] [address], Ph. Attender: Merlene Sadler [facility] Medical 06/17/2020 12:00:00 AM EDT [facility] ([facility]) Merlene Sadler, [facility]: [address], [place] [address], Ph. Attender: Merlene Sadler [facility] Medical 06/17/2020 12:00:00 AM EDT [facility] ([facility]) Merlene Sadler, [facility]: [address], [place] [address], Ph. Attender: Merlene Sadler [facility] Medical 06/17/2020 12:00:00 AM EDT [facility] ([facility]) Merlene Sadler [facility]: [address], [place] [address], Ph. Attender: Merlene Sadler [facility] Medical 06/17/2020 12:00:00 AM EDT [facility] ([facility]) Mrelene Sadler, VARIETY PERFORMER: [address], [place] [address], Ph. Attender: Merlene Sadler [facility] Medical 06/17/2020 12:00:00 AM EDT [facility] ([facility]) Merlene Sadler, VARIETY PERFORMER: [address], [place] [address], Ph. Attender: Merlene Sadler [facility] Medical 06/17/2020 12:00:00 AM EDT [facility] ([facility]) Outpatient Attender: Ruthie Sifuentes MD Main office - [facility] 05/20/2020 08:30:00 AM EDT MEDENT ([facility]) OFFICE OUTPATIENT NEW 30 MINUTES Attender: Tucker Goldsmith MD Physic al Therapy 05/14/2020 09:30:00 AM EDT MEDJUAN RAMON ([facility]) LESLY TalamantesW-R: [address], [place] [address], Ph. Attender: Sharon Bautista [facility] Medical 05/06/2020 12:00:00 AM EDT H[facility] ([facility]) LESLY TalamantesW-R: [address], [place] [address], Ph. Attender: Sharon Bautista [facility] Medical 05/06/2020 12:00:00 AM EDT H[facility] ([facility]) LESLY TalamantesW-R: [address], [place] [address], Ph. Attender: Sharon Bautista [facility] Medical 05/06/2020 12:00:00 AM EDT H[facility] ([facility]) LESLY TalamantesW-R: [address], [place] [address], Ph. Attender: Sharon Bautista [facility] Medical 05/06/2020 12:00:00 AM EDT [facility] ([facility]) LESLY TalamantesW-R: [address], [place] [address], Ph. Attender: Sharon Megagueromarilyalan [facility] Medical 05/06/2020 12:00:00 AM EDT [facility] ([facility]) LESLY TalamantesW-R: [address], [place] [address], Ph. Attender: Sharon Westmarilyalan [facility] Medical 05/06/2020 12:00:00 AM EDT [facility] ([facility]) LESLY TalamantesW-R: [address], [place] [address], Ph. Attender: Sharon Bautista [facility] Medical 05/06/2020 12:00:00 AM EDT [facility] ([facility]) LESLY TalamantesW-R: [address], [place] [address], Ph. Attender: Sharon Bautista [facility] Medical 05/06/2020 12:00:00 AM EDT [facility] ([facility]) LESLY TalamantesW-R: [address], [place] [address], Ph. Attender: Sharon Bautista [facility] Medical 05/06/2020 12:00:00 AM EDT [facility] ([facility]) LESLY TalamantesW-R: [address], [place] [address], Ph. Attender: Sharon Bautista [facility] Medical 05/06/2020 12:00:00 AM EDT HILDA ([facility]) SharonLESLY MccartneyW-R: [address], [address], [place] [address], Ph. Attender: Sharon Bautista [facility] Medical 05/06/2020 12:00:00 AM EDT [facility] ([facility]) LESLY TalamantesW-R: [address], [place] [address], Ph. Attender: Sharon Bautista [facility] Medical 05/06/2020 12:00:00 AM EDT [facility] ([facility]) LESLY TalamantesW-R: [address], [place] [address], Ph. Attender: Sharon Bautista [facility] Medical 05/06/2020 12:00:00 AM EDT [facility] ([facility]) LESLY TalamantesW-R: [address], [address], [place] [address], Ph. Attender: Sharon Megagueromarilyalan [facility] Medical 05/06/2020 12:00:00 AM EDT [facility] ([facility]) LESLY TalamantesW-R: [address], [place] [address], Ph. Attender: Sharon Michele [facility] Medical 05/06/2020 12:00:00 AM EDT [facility] ([facility]) LESLY TalamantesW-R: [address], [address], [place] [address], Ph. Attender: Sharon Bautista [facility] Medical 05/06/2020 12:00:00 AM EDT HILDA ([facility]) SharonLESLY MccartneyW-R: [address], [place] [address], Ph. Attender: Sharon Bautista [facility] Medical 05/06/2020 12:00:00 AM EDT HILDA ([facility]) LESLY TalamantesW-R: [address], [address], [place] [address], Ph. Attender: Sharon Bautista [facility] Medical 05/06/2020 12:00:00 AM EDT H[facility]DA ([facility]) Chayo Dickerson RPA-C: [address], [address], [place] [address], Ph. Attender: CHAYO DICKERSON [facility] Medical 05/03/2020 12:00:00 AM EDT [facility] ([facility]) Chayo Dickerson RPA-C: [address], [address], [place] [address], Ph. Attender: CHAYO DICKERSON [facility] Medical 05/03/2020 12:00:00 AM EDT [facility] ([facility]) Chayo Dickerson RPA-C: [address], [place] [address], Ph. Attender: CHAYO DICKERSON [facility] Medical 05/03/2020 12:00:00 AM EDT H[facility]DA ([facility]) Chayo Dickerson RPA-C: [address], [place] [address], Ph. Attender: CHAYO DICKERSON [facility] Medical 05/03/2020 12:00:00 AM EDT [facility] ([facility]) Chayo Dickerson RPA-C: [address], [place] [address], Ph. Attender: CHAYO DICKERSON [facility] Medical 05/03/2020 12:00:00 AM EDT [facility] ([facility]) Chayo Dickerson RPA-C: [address], [address], [place] [address], Ph. Attender: CHAYO DICKERSON [facility] Medical 05/03/2020 12:00:00 AM EDT [facility] ([facility]) Chayo Dickerson RPA-C: [address], [address], [place] [address], Ph. Attender: CHAYO DICKERSON [facility] Medical 05/03/2020 12:00:00 AM EDT [facility] ([facility]) Chyao Dickerson RPA-C: [address], [place] [address], Ph. Attender: CHAYO DICKERSON [facility] Medical 05/03/2020 12:00:00 AM EDT [facility] ([facility] [facility] Chayo Dickerson RPA-C: [address], [place] [address], Ph. Attender: CHAYO DICKERSON [facility] Medical 05/03/2020 12:00:00 AM EDT [place] ([facility]) Chayo Dickerson RPA-C: [address], [place] [address], Ph. Attender: CHAYO DICKERSON [facility] Medical 05/03/2020 12:00:00 AM EDT [place] ([facility]) Chayo Dickerson RPA-C: [address], [place] [address], Ph. Attender: CHAYO DICKERSON [facility] Medical 05/03/2020 12:00:00 AM EDT [place] ([facility]) Chayo Dickerson RPA-C: [address], [place] [address], Ph. Attender: CHAYO DICKERSON [facility] Medical 05/03/2020 12:00:00 AM EDT [place] ([facility]) Chayo Dickerson RPA-C: [address], [address], [place] [address], Ph. Attender: CHAYO DICKERSON [facility] Medical 05/03/2020 12:00:00 AM EDT [place] ([facility]) Chayo Dickerson RPA-C: [address], [place] [address], Ph. Attender: CHAYO DICKERSON [facility] Medical 05/03/2020 12:00:00 AM EDT [place] ([facility]) Chayo Dickerson RPA-C: [address], [address], [place] [address], Ph. Attender: CHAYO DICKERSON [facility] Medical 05/03/2020 12:00:00 AM EDT [place] ([facility]) Chayo Dickerson RPA-C: [address], [place] [address], Ph. Attender: CHAYO DICKERSON [facility] Medical 05/03/2020 12:00:00 AM EDT [place] ([facility]) Chayo Dickerson RPA-C: [address], [address], [place] [address], Ph. Attender: CHAYO DICKERSON [facility] Medical 05/03/2020 12:00:00 AM EDT [place] ([facility]) Chayo Dickerson RPA-C: [address], [address], [place] [address], Ph. Attender: CHAYO DICKERSON [facility] Medical 05/03/2020 12:00:00 AM EDT [place] ([facility]) Chayo Dickerson RPA-C: [address], [address], [place] [address], Ph. Attender: CHAYO DICKERSON [facility] Medical 05/03/2020 12:00:00 AM EDT [place] ([facility]) LESLY TalamantesW-R: [address], [place] [address], Ph. Attender: Sharon Bautista [facility] Medical 04/22/2020 12:00:00 AM EDT [place] ([facility]) LESLY TalamantesW-R: [address], [address], [place] [address], Ph. Attender: Sharon Bautista [facility] Medical 04/22/2020 12:00:00 AM EDT [place] ([facility]) SharonLESLY MccartneyW-R: [address], [address], [place] [address], Ph. Attender: Sharon Bautista [facility] Medical 04/22/2020 12:00:00 AM EDT [place] ([facility]) LESLY TalamantesW-R: [address], [address], [place] [address], Ph. Attender: Sharon Bautista [facility] Medical 04/22/2020 12:00:00 AM EDT [place] ([facility]) LESLY TalamantesW-R: [address], [address], [place] [address], Ph. Attender: Sharon Bautista [facility] Medical 04/22/2020 12:00:00 AM EDT [place] ([facility]) LESLY TalamantesW-R: [address], [address], [place] [address], Ph. Attender: Sharon Bautista [facility] Medical 04/22/2020 12:00:00 AM EDT [place] ([facility]) LESLY TalamantesW-R: [address], [address], [place] [address], Ph. Attender: Sharon Bautista [facility] Medical 04/22/2020 12:00:00 AM EDT [place] ([facility]) LESLY TalamantesW-R: [address], [address], [place] [address], Ph. Attender: Sharon Bautista [facility] Medical 04/22/2020 12:00:00 AM EDT [place] ([facility]) LESLY TalamantesW-R: [address], [place] [address], Ph. Attender: Sharon Bautista [facility] Medical 04/22/2020 12:00:00 AM EDT [place] ([facility]) LESLY TalamantesW-R: [address], [place] [address], Ph. Attender: Sharon Ayoubgueromarilyalan [facility] Medical 04/22/2020 12:00:00 AM EDT [place] ([facility]) LESLY TalamantesW-R: [address], [address], [place] [address], Ph. Attender: Sharon Megagueromarilyalan [facility] Medical 04/22/2020 12:00:00 AM EDT [place] ([facility]) LESLY TalamantesW-R: [address], [address], [place] [address], Ph. Attender: Sharonlouisa Westmarilyalan [facility] Medical 04/22/2020 12:00:00 AM EDT [place] ([facility]) LESLY TalamantesW-R: [address], [address], [place] [address], Ph. Attender: Sharon Bautista [facility] Medical 04/22/2020 12:00:00 AM EDT [place] ([facility]) Sharon Low, MANAGER OF PROCUREMENT-R: [address], [address], [place] [address], Ph. Attender: Sharon Bautista [facility] Medical 04/22/2020 12:00:00 AM EDT [place] ([facility]) Sharon LouiseLESLY saulW-R: [address], [address], [place] [address], Ph. Attender: Sharon Bautista [facility] Medical 04/22/2020 12:00:00 AM EDT [place] ([facility]) SharonLESLY MccartneyW-R: [address], [address], [place] [address], Ph. Attender: Sharon Bautista [facility] Medical 04/22/2020 12:00:00 AM EDT [place] ([facility]) SharonLESLY MccartneyW-R: [address], [address], [place] [address], Ph. Attender: Sharon Bautista [facility] Medical 04/22/2020 12:00:00 AM EDT [place] ([facility]) LESLY TalamantesW-R: [address], [address], [place] [address], Ph. Attender: Sharon Bautista [facility] Medical 04/22/2020 12:00:00 AM EDT [place] ([facility]) LESLY TalamantesW-R: [address], [address], [place] [address], Ph. Attender: Sharon Michele [facility] Medical 04/22/2020 12:00:00 AM EDT [place] ([facility]) Sharon Low, MANAGER OF PROCUREMENT-R: [address], [address], [place] [address], Ph. Attender: Sharon Bautista [facility] Medical 04/22/2020 12:00:00 AM EDT [place] ([facility]) Chayo Dickerson RPA-C: [address], [address], [place] [address], Ph. Attender: CHAYO DICKERSON [facility] Medical 04/16/2020 12:00:00 AM EST [place] ([facility]) MADDISON AdamsC: [address], [address], [place] [address], Ph. Attender: CHAYO DICKERSON [facility] Medical 04/16/2020 12:00:00 AM EST [place] ([facility]) MADDISON AdamsC: [address], [address], [place] [address], Ph. Attender: CHAYO DICKERSON [facility] Medical 04/16/2020 12:00:00 AM EST [place] ([facility]) MADDISON AdamsC: [address], [address], [place] [address], Ph. Attender: CHAYO DICKERSON [facility] Medical 04/16/2020 12:00:00 AM EST [place] ([facility]) MADDISON AdamsC: [address], [address], [place] [address], Ph. Attender: CHAYO DICKERSON [facility] Medical 04/16/2020 12:00:00 AM EST [place] ([facility]) Chayo Dickerson RPA-C: [address], [address], [place] [address], Ph. Attender: CHAYO DICKERSON [facility] Medical 04/16/2020 12:00:00 AM EST [place] ([facility]) Chayo Dickerson RPA-C: [address], [address], [place] [address], Ph. Attender: CHAYO DICKERSON [facility] Medical 04/16/2020 12:00:00 AM EST [place] ([facility]) MADDISON AdamsC: [address], [address], [place] [address], Ph. Attender: CHAYO DICKERSON [facility] Medical 04/16/2020 12:00:00 AM EST [place] ([facility]) MADDISON AdamsC: [address], [address], [place] [address], Ph. Attender: CHAYO DICKERSON [facility] Medical 04/16/2020 12:00:00 AM EST [place] ([facility]) Chayo Dickerson RPA-C: [address], [address], [place] [address], Ph. Attender: CHAYO DICKERSON [facility] Medical 04/16/2020 12:00:00 AM EST [place] ([facility]) Chayo Dickerson RPA-C: [address], [address], [place] [address], Ph. Attender: CHAYO DICKERSON [facility] Medical 04/16/2020 12:00:00 AM EST [place] ([facility]) Chayo Dickerson RPA-C: [address], [address], [place] [address], Ph. Attender: CHAYO DICKERSON [facility] Medical 04/16/2020 12:00:00 AM EST [place] ([facility]) Chayo Dickerson RPA-C: [address], [address], [place] [address], Ph. Attender: CHAYO DICKERSON [facility] Medical 04/16/2020 12:00:00 AM EST [place] ([facility]) Chayo Dickerson RPA-C: [address], [address], [place] [address], Ph. Attender: CHAYO DICKERSON [facility] Medical 04/16/2020 12:00:00 AM EST [place] ([facility]) Chayo Dickerson RPA-C: [address], [address], [place] [address], Ph. Attender: CHAYO DICKERSON [facility] Medical 04/16/2020 12:00:00 AM EST [place] ([facility]) Chayo Dickerson RPA-C: [address], [address], [place] [address], Ph. Attender: CHAYO DICKERSON [facility] Medical 04/16/2020 12:00:00 AM EST [place] ([facility]) Chayo Dickerson RPA-C: [address], [address], [place] [address], Ph. Attender: CHAYO DICKERSON [facility] Medical 04/16/2020 12:00:00 AM EST [place] ([facility]) Chayo Dickerson RPA-C: [address], [address], [place] [address], Ph. Attender: CHAYO DICKERSON [facility] Medical 04/16/2020 12:00:00 AM EST [place] ([facility]) Chayo Dickerson RPA-C: [address], [address], [place] [address], Ph. Attender: CHAYO DICKERSON [facility] Medical 04/16/2020 12:00:00 AM EST [place] ([facility]) Chayo Dickerson RPA-C: [address], [address], [place] [address], Ph. Attender: CHAYO DICKERSON [facility] Medical 04/16/2020 12:00:00 AM EST [place] ([facility]) Chayo Dickerson RPA-C: [address], [address], [place] [address], Ph. Attender: CHAYO DICKERSON [facility] Medical 04/16/2020 12:00:00 AM EST [place] ([facility]) LESLY TalamantesW-R: [address], [address], [place] [address], Ph. Attender: Sharon Bautista [facility] Medical 04/15/2020 12:00:00 AM EST [place] ([facility]) Sharon Low, MANAGER OF PROCUREMENT-R: [address], [address], [place] [address], Ph. Attender: Sharon Bautista [facility] Medical 04/15/2020 12:00:00 AM EST [place] ([facility]) SharonLESLY MccartneyW-R: [address], [address], [place] [address], Ph. Attender: Sharon Bautista [facility] Medical 04/15/2020 12:00:00 AM EST [place] ([facility]) LESLY TalamantesW-R: [address], [address], [place] [address], Ph. Attender: Sharon Ayoubgueromarilyalan [facility] Medical 04/15/2020 12:00:00 AM EST [place] ([facility]) LESLY TalamantesW-R: [address], [address], [place] [address], Ph. Attender: Sharon Barahonaalan [facility] Medical 04/15/2020 12:00:00 AM EST [place] ([facility]) LESLY TalamantesW-R: [address], [address], [place] [address], Ph. Attender: Sharon Ayoubdiego [facility] Medical 04/15/2020 12:00:00 AM EST [place] ([facility]) LESLY TalamantesW-R: [address], [address], [place] [address], Ph. Attender: Sharon Bautista [facility] Medical 04/15/2020 12:00:00 AM EST [place] ([facility]) LESLY TalamantesW-R: [address], [address], [place] [address], Ph. Attender: Sharon Bautista [facility] Medical 04/15/2020 12:00:00 AM EST [place] ([facility]) Sharon LouiseLESLY saulW-R: [address], [address], [place] [address], Ph. Attender: Sharon Bautista [facility] Medical 04/15/2020 12:00:00 AM EST [place] ([facility]) Sharon LouiseLESLY saulW-R: [address], [address], [place] [address], Ph. Attender: Sharon Ayoubdiego [facility] Medical 04/15/2020 12:00:00 AM EST [place] ([facility]) Sharon LouiseLESLY saulW-R: [address], [address], [place] [address], Ph. Attender: Sharon Ayoubgueromarilyalan [facility] Medical 04/15/2020 12:00:00 AM EST [place] ([facility]) LESLY TalamantesW-R: [address], [address], [place] [address], Ph. Attender: Sharonlouisa Bautista [facility] Medical 04/15/2020 12:00:00 AM EST [place] ([facility]) LESLY TalamantesW-R: [address], [address], [place] [address], Ph. Attender: Sharon Bautista [facility] Medical 04/15/2020 12:00:00 AM EST [place] ([facility]) Sharon LowLESLYW-R: [address], [address], [place] [address], Ph. Attender: Sharon Bautista [facility] Medical 04/15/2020 12:00:00 AM EST [place] ([facility]) Sharon LouiseLESLY saulW-R: [address], [place] [address], Ph. Attender: Sharon Bautista [facility] Medical 04/15/2020 12:00:00 AM EST [place] ([facility]) Sharon LouiseLESLY saulW-R: [address], [address], [place] [address], Ph. Attender: Sharon Jennamarilyalan [facility] Medical 04/15/2020 12:00:00 AM EST [place] ([facility]) Sharon LouiseLESLY saulW-R: [address], [address], [place] [address], Ph. Attender: Sharon Michele [facility] Medical 04/15/2020 12:00:00 AM EST [place] ([facility]) LESLY TalamantesW-R: [address], [place] [address], Ph. Attender: Sharon Michele [facility] Medical 04/15/2020 12:00:00 AM EST [place] ([facility]) SharonLESLY MccartneyW-R: [address], [place] [address], Ph. Attender: Sharon Bautista [facility] Medical 04/15/2020 12:00:00 AM EST [place] ([facility]) Sharon Low, MANAGER OF PROCUREMENT-R: [address], [place] [address], Ph. Attender: Sharon Ayoubgueromeg [facility] Medical 04/15/2020 12:00:00 AM EST [place] ([facility]) Sharon Low, MANAGER OF PROCUREMENT-R: [address], [place] [address], Ph. Attender: Sharon Jennameg [facility] Medical 04/15/2020 12:00:00 AM EST [place] ([facility]) Sharon LouiseLESLY saulW-R: [address], [place] [address], Ph. Attender: Sharonlouisa Bautista [facility] Medical 04/15/2020 12:00:00 AM EST [place] ([facility]) Chayo Dickerson RPA-C: [address], [place] [address], Ph. Attender: CHAYO DICKERSON [facility] Medical 04/02/2020 12:00:00 AM EST [place] ([facility]) Chayo Dickerson RPA-C: [address], [place] [address], Ph. Attender: CHAYO DICKERSON [facility] Medical 04/02/2020 12:00:00 AM EST [place] ([facility]) Chayo Dickerson RPA-C: [address], [address], [place] [address], Ph. Attender: CHAYO DICKERSON [facility] Medical 04/02/2020 12:00:00 AM EST [place] ([facility]) Chayo Dickerson RPA-C: [address], [address], [place] [address], Ph. Attender: CHAYO DICKERSON [facility] Medical 04/02/2020 12:00:00 AM EST [place] ([facility]) Chayo Dickerson RPA-C: [address], [address], [place] [address], Ph. Attender: CHAYO DICKERSON [facility] Medical 04/02/2020 12:00:00 AM EST [place] ([facility]) Chayo Dickerson RPA-C: [address], [address], [place] [address], Ph. Attender: CHAYO DICKERSON [facility] Medical 04/02/2020 12:00:00 AM EST [place] ([facility]) Chayo Dickerson RPA-C: [address], [address], [place] [address], Ph. Attender: CHAYO DICKERSON [facility] Medical 04/02/2020 12:00:00 AM EST [place] ([facility]) Chayo Dickerson RPA-C: [address], [address], [place] [address], Ph. Attender: CHAYO DICKERSON [facility] Medical 04/02/2020 12:00:00 AM EST [place] ([facility]) Chayo Dickerson RPA-C: [address], [address], [place] [address], Ph. Attender: CHAYO DICKERSON [facility] Medical 04/02/2020 12:00:00 AM EST [place] ([facility]) Chayo Dickerson RPA-C: [address], [address], [place] [address], Ph. Attender: CHAYO DICKERSON [facility] Medical 04/02/2020 12:00:00 AM EST [place] ([facility]) Chayo Dickerson RPA-C: [address], [address], [place] [address], Ph. Attender: CHAYO DICKERSON [facility] Medical 04/02/2020 12:00:00 AM EST [place] ([facility]) MADDISON AdamsC: [address], [address], [place] [address], Ph. Attender: CHAYO DICKERSON [facility] Medical 04/02/2020 12:00:00 AM EST [place] ([facility]) Chayo Dickerson RPA-C: [address], [address], [place] [address], Ph. Attender: CHAYO DICKERSON [facility] Medical 04/02/2020 12:00:00 AM EST [place] ([facility]) Chayo Dickerson RPA-C: [address], [address], [place] [address], Ph. Attender: CHAYO DICKERSON [facility] Medical 04/02/2020 12:00:00 AM EST [place] ([facility]) Chayo Dickerson RPA-C: [address], [address], [place] [address], Ph. Attender: CHAYO DICKERSON [facility] Medical 04/02/2020 12:00:00 AM EST [place] ([facility]) MADDISON AdamsC: [address], [address], [place] [address], Ph. Attender: CHAYO DICKERSON [facility] Medical 04/02/2020 12:00:00 AM EST [place] ([facility]) MADDISON AdamsC: [address], [address], [place] [address], Ph. Attender: CHAYO DICKERSON [facility] Medical 04/02/2020 12:00:00 AM EST [place] ([facility]) MADDISON AdamsC: [address], [place] [address], Ph. Attender: CHAYO DICKERSON [facility] Medical 04/02/2020 12:00:00 AM EST [place] ([facility]) MADDISON AdamsC: [address], [place] [address], Ph. Attender: CHAYO DICKERSON [facility] Medical 04/02/2020 12:00:00 AM EST [place] ([facility]) MADDISON AdamsC: [address], [place] [address], Ph. Attender: CHAYO DICKERSON [facility] Medical 04/02/2020 12:00:00 AM EST [place] ([facility]) Chayo Dickerson, RPA-C: [address], [place] [address], Ph. Attender: CHAYO DICKERSON [facility] Medical 04/02/2020 12:00:00 AM EST [place] ([facility]) Chayo Dickerson RPA-C: [address], [place] [address], Ph. Attender: CHAYO DICKERSON [facility] Medical 04/02/2020 12:00:00 AM EST [place] ([facility]) Chayo Dickerson RPA-C: [address], [address], [place] [address], Ph. Attender: CHAYO DICKERSON [facility] Medical 04/02/2020 12:00:00 AM EST [place] ([facility]) Merlenemarie Sadler, [facility]: [address], [place] [address], Ph. Attender: Merlenemarie Sadler [facility] Medical 03/05/2020 12:00:00 AM EST [place] ([facility]) Merlene Sadler [facility]: [address], [place] [address], Ph. Attender: Merlene Sadlre [facility] Medical 03/05/2020 12:00:00 AM EST HILDA ([facility]) Merlene Sadler [facility]: [address], [place] [address], Ph. Attender: Merlene Sadler [facility] Medical 03/05/2020 12:00:00 AM EST HILDA ([facility]) Merlene Sadler [facility]: [address], [place] [address], Ph. Attender: Merlene Sadler [facility] Medical 03/05/2020 12:00:00 AM EST HILDA ([facility]) Merlene Sadler, [employer]: [address], [place] [address], Ph. Attender: Merlene Sadler [facility] Medical 03/05/2020 12:00:00 AM EST HILDA ([facility]) Merlene Sadler [facility]: [address], [place] [address], Ph. Attender: Merlene Sadler [facility] Medical 03/05/2020 12:00:00 AM EST HILDA ([facility]) Merlene Sadler, [facility]: [address], [place] [address], Ph. Attender: Merlene Sadler [facility] Medical 03/05/2020 12:00:00 AM EST HILDA ([facility]) Merlene Sadler [facility]: [address], [place] [address], Ph. Attender: Merlene Sadler [facility] Medical 03/05/2020 12:00:00 AM EST HILDA ([facility]) Merlene Sadler [facility]: [address], [place] [address], Ph. Attender: Merleen Sadler [facility] [facility] Medical 03/05/2020 12:00:00 AM EST HILDA ([facility]) Merlene Sadler, VARIETY PERFORMER: [address], [place] [address], Ph. Attender: Merlene Sadler [facility] Medical 03/05/2020 12:00:00 AM EST HILDA ([facility]) Merlene Sadler, VARIETY PERFORMER: [address], [place] [address], Ph. Attender: Merlene Sadler [facility] Medical 03/05/2020 12:00:00 AM EST HILDA ([facility]) Merlene Sadler, [facility]: [address], [place] [address], Ph. Attender: Merlene Sadler [facility] Medical 03/05/2020 12:00:00 AM EST HILDA ([facility]) Merlene Sadler, [facility]: [address], [place] [address], Ph. Attender: Merlene Sadler [facility] Medical 03/05/2020 12:00:00 AM EST HILDA ([facility]) Merlene Sadler, VARIETY PERFORMER: [address], [place] [address], Ph. Attender: Merlene Sadler [facility] Medical 03/05/2020 12:00:00 AM EST HILDA ([facility]) Merlene Sadler, [facility]: [address], [place] [address], Ph. Attender: Merlene Sadler [facility] Medical 03/05/2020 12:00:00 AM EST HILDA ([facility]) Merlene Sadler, VARIETY PERFORMER: [address], [place] [address], Ph. Attender: Merlene Sadler [facility] Medical 03/05/2020 12:00:00 AM EST HILDA ([facility]) Merlene Sadler, VARIETY PERFORMER: [address], [place] [address], Ph. Attender: Merlene Sadler [facility] Medical 03/05/2020 12:00:00 AM EST HILDA ([facility]) Merlene Sadler, VARIETY PERFORMER: [address], [place] [address], Ph. Attender: Merlene Sadler [facility] Medical 03/05/2020 12:00:00 AM EST HILDA ([facility]) Merlene Sadler, VARIETY PERFORMER: [address], [place] [address], Ph. Attender: Merlene Sadler [facility] Medical 03/05/2020 12:00:00 AM EST HILDA ([facility]) Merlene Sadler, VARIETY PERFORMER: [address], [place] [address], Ph. Attender: Merlene Sadler [facility] Medical 03/05/2020 12:00:00 AM EST HILDA ([facility]) Merlene Sadler, VARIETY PERFORMER: [address], [place] [address], Ph. Attender: Merlene Sadler [facility] Medical 03/05/2020 12:00:00 AM EST [facility]ILDA ([facility]) Merlene Sadler, VARIETY PERFORMER: [address], [place] [address], Ph. Attender: Merlene Sadler [facility] Medical 03/05/2020 12:00:00 AM EST HILDA ([facility]) Merlene Sadler, VARIETY PERFORMER: [address], [place] [address], Ph. Attender: Merlene Sadler [facility] Medical 03/05/2020 12:00:00 AM EST HILDA ([facility]) Merlene Sadler, VARIETY PERFORMER: [address], [place] [address], Ph. Attender: Merlene Sadler [facility] Medical 03/05/2020 12:00:00 AM EST HILDA ([facility]) Merlene Sadler VARIETY PERFORMER: [address], [place] [address], Ph. Attender: Merlene Sadler [facility] Medical 02/20/2020 12:00:00 AM EST HILDA ([facility]) Merlene Sadler, VARIETY PERFORMER: [address], [place] [address], Ph. Attender: Merlene Sadler [facility] Medical 02/20/2020 12:00:00 AM EST HILDA ([facility]) Merlene Sadler VARIETY PERFORMER: [address], [place] [address], Ph. Attender: Merlene Sadler [facility] Medical 02/20/2020 12:00:00 AM EST HILDA ([facility]) Merlene Sadler, VARIETY PERFORMER: [address], [place] [address], Ph. Attender: Merlene Sadler [facility] Medical 02/20/2020 12:00:00 AM EST HILDA ([facility]) Merlene Sadler, VARIETY PERFORMER: [address], [place] [address], Ph. Attender: Merlene Sadler [facility] Medical 02/20/2020 12:00:00 AM EST HILDA ([facility]) Merlene Sadler, VARIETY PERFORMER: [address], [place] [address], Ph. Attender: Merlene Sadler [facility] Medical 02/20/2020 12:00:00 AM EST HILDA ([facility]) Merlene Sadler, VARIETY PERFORMER: [address], [place] [address], Ph. Attender: Merlene Sadler [facility] Medical 02/20/2020 12:00:00 AM EST HILDA ([facility]) Merlene Sadler, VARIETY PERFORMER: [address], [place] [address], Ph. Attender: Merlene Sadler [facility] Medical 02/20/2020 12:00:00 AM EST HILDA ([facility]) Merlene Sadler, VARIETY PERFORMER: [address], [place] [address], Ph. Attender: Merlene Sadler [facility] Medical 02/20/2020 12:00:00 AM EST HILDA ([facility]) Merlene Sadler, VARIETY PERFORMER: [address], [place] [address], Ph. Attender: Merlene Sadler [facility] Medical 02/20/2020 12:00:00 AM EST HILDA ([facility]) Merlene Sadler, [facility]: [address], [place] [address], Ph. Attender: Merlene Sadler [facility] Medical 02/20/2020 12:00:00 AM EST HILDA ([facility]) Merlene Sadler, VARIETY PERFORMER: [address], [place] [address], Ph. Attender: Merlene Sadler [facility] Medical 02/20/2020 12:00:00 AM EST HILDA ([facility]) Merlene Sadler, [facility]: [address], [place] [address], Ph. Attender: Merlene Sadler [facility] Medical 02/20/2020 12:00:00 AM EST HILDA ([facility]) Merlene Sadler, [facility]: [address], [place] [address], Ph. Attender: Merlene Sadler [facility] Medical 02/20/2020 12:00:00 AM EST HILDA ([facility]) Merlene Sadler, [facility]: [address], [place] [address], Ph. Attender: Merlene Sadler [facility] Medical 02/20/2020 12:00:00 AM EST HILDA ([facility]) Merlene Sadler, VARIETY PERFORMER: [address], [place] [address], Ph. Attender: Merlene Sadler [facility] Medical 02/20/2020 12:00:00 AM EST HILDA ([facility]) Merlene Sadler VARIETY PERFORMER: [address], [place] [address], Ph. Attender: Merlene Sadler [facility] Medical 02/20/2020 12:00:00 AM EST HILDA ([facility]) Merlene Sadler, VARIETY PERFORMER: [address], [place] [address], Ph. Attender: Merlene Sadler [facility] Medical 02/20/2020 12:00:00 AM EST HILDA ([facility]) Merlene Sadler VARIETY PERFORMER: [address], [place] [address], Ph. Attender: Merlene Sadler [facility] Medical 02/20/2020 12:00:00 AM EST HILDA ([facility]) Merlene Sadler, VARIETY PERFORMER: [address], [place] [address], Ph. Attender: Merlene Sadler [facility] Medical 02/20/2020 12:00:00 AM EST HILDA ([facility]) Merlene Sadler, VARIETY PERFORMER: [address], [place] [address], Ph. Attender: Merlene Sadler [facility] Medical 02/20/2020 12:00:00 AM EST HILDA ([facility]) Merlene Sadler, VARIETY PERFORMER: [address], [place] [address], Ph. Attender: Merlene Sadler [facility] Medical 02/20/2020 12:00:00 AM EST HILDA ([facility]) Merlene Sadler, VARIETY PERFORMER: [address], [place] [address], Ph. Attender: Merlene Sadler [facility] Medical 02/20/2020 12:00:00 AM EST HILDA ([facility]) Merlene Sadler, VARIETY PERFORMER: [address], [place] [address], Ph. Attender: Merlene Sadler [facility] Medical 02/20/2020 12:00:00 AM EST HILDA ([facility]) Merlene Sadler, VARIETY PERFORMER: [address], [place] [address], Ph. Attender: Merlene Sadler [facility] Medical 02/20/2020 12:00:00 AM EST HILDA ([facility]) Terry Quiroga RPA-C: [address], [place] [address], Ph. Attender: TERRY QUIROGA RPA-C [facility] Medical 02/02/2020 12:00:00 AM EST HILDA ([facility]) Merlene Sadler, VARIETY PERFORMER: [address], [place] [address], Ph. Attender: Merlene Sadler [facility] Medical 02/02/2020 12:00:00 AM EST HILDA ([facility]) Terry Quiroga RPA-C: [address], [place] [address], Ph. Attender: TERRY QUIROGA RPA-C [facility] Medical 02/02/2020 12:00:00 AM EST HILDA ([facility]) Merlene Sadler, VARIETY PERFORMER: [address], [place] [address], Ph. Attender: Merlene Sadler [facility] Medical 02/02/2020 12:00:00 AM EST HILDA ([facility]) Terry Quiroga RPA-C: [address], [place] [address], Ph. Attender: TERRY QUIROGA RPA-C [facility] Medical 02/02/2020 12:00:00 AM EST HILDA ([facility]) Merlene Sadler, VARIETY PERFORMER: [address], [place] [address], Ph. Attender: Merlene Sadler [facility] Medical 02/02/2020 12:00:00 AM EST HILDA ([facility]) Terry Quiroga RPA-C: [address], [place] [address], Ph. Attender: TERRY QUIROGA RPA-C [facility] Medical 02/02/2020 12:00:00 AM EST HILDA ([facility]) Merlene Sadler, VARIETY PERFORMER: [address], [place] [address], Ph. Attender: Merlene Sadler [facility] Medical 02/02/2020 12:00:00 AM EST HILDA ([facility]) Terry Quiroga RPA-C: [address], [place] [address], Ph. Attender: TERRY QUIROGA RPA-C [facility] Medical 02/02/2020 12:00:00 AM EST HILDA ([facility]) Merlene Sadler, VARIETY PERFORMER: [address], [place] [address], Ph. Attender: Merlene Sadler [facility] Medical 02/02/2020 12:00:00 AM EST HILDA ([facility]) Terry Quiroga RPA-C: [address], [place] [address], Ph. Attender: TERRY QUIROGA RPA-C [facility] Medical 02/02/2020 12:00:00 AM EST HILDA ([facility]) Merlene Sadler, [facility]: [address], [place] [address], Ph. Attender: Merlene Sadler [facility] Medical 02/02/2020 12:00:00 AM EST HILDA ([facility]) Terry Quiroga RPA-C: [address], [place] [address], Ph. Attender: TERRY QUIROGA RPA-C [facility] Medical 02/02/2020 12:00:00 AM EST HILDA ([facility]) Merlene Sadler, [facility]: [address], [place] [address], Ph. Attender: Merlene Sadler [facility] Medical 02/02/2020 12:00:00 AM EST HILDA ([facility]) Terry Quiroga RPA-C: [address], [place] [address], Ph. Attender: TERRY QUIROGA RPA-C [facility] Medical 02/02/2020 12:00:00 AM EST HILDA ([facility]) Merlene Sadler, [facility]: [address], [place] [address], Ph. Attender: Merlene Sadler [facility] Medical 02/02/2020 12:00:00 AM EST HILDA ([facility]) Terry Quiroga RPA-C: [address], [place] [address], Ph. Attender: TERRY QUIROGA RPA-C [facility] Medical 02/02/2020 12:00:00 AM EST HILDA ([facility]) Merlene Sadler, [facility]: [address], [place] [address], Ph. Attender: Merlene Sadler [facility] Medical 02/02/2020 12:00:00 AM EST HILDA ([facility]) Terry Quiroga RPA-C: [address], [place] [address], Ph. Attender: TERRY WASHBURNC [facility] Medical 02/02/2020 12:00:00 AM EST HILDA ([facility]) Merlene Sadler, [facility]: [address], [place] [address], Ph. Attender: Merlene Sadler [facility] Medical 02/02/2020 12:00:00 AM EST HILDA ([facility]) Terry Quiroga RPA-C: [address], [place] [address], Ph. Attender: TERRY QUIROGA RPA-C [facility] Medical 02/02/2020 12:00:00 AM EST HILDA ([facility]) Merlene Sadler, VARIETY PERFORMER: [address], [place] [address], Ph. Attender: Merlene Sadler [facility] Medical 02/02/2020 12:00:00 AM EST HILDA ([facility]) Terry Quiroga RPA-C: [address], [place] [address], Ph. Attender: TERRY QUIROGA RPA-C [facility] Medical 02/02/2020 12:00:00 AM EST HILDA ([facility]) Merlene Sadler, [facility]: [address], [place] [address], Ph. Attender: Merlene Sadler [facility] Medical 02/02/2020 12:00:00 AM EST HILDA ([facility]) Terry Quiroga RPA-C: [address], [place] [address], Ph. Attender: TERRY QUIROGA RPA-C [facility] Medical 02/02/2020 12:00:00 AM EST HILDA ([facility]) Merlene Sadler, VARIETY PERFORMER: [address], [place] [address], Ph. Attender: Merlene Sadler [facility] Medical 02/02/2020 12:00:00 AM EST HILDA ([facility]) Terry Quiroga RPA-C: [address], [place] [address], Ph. Attender: TERRY QUIROGA RPA-C [facility] Medical 02/02/2020 12:00:00 AM EST HILDA ([facility]) Merlene Sadler, [facility]: [address], [place] [address], Ph. Attender: Merlene Sadler [facility] Medical 02/02/2020 12:00:00 AM EST HILDA ([facility]) Terry Quiroga RPA-C: [address], [place] [address], Ph. Attender: TERRY WASHBURNC [facility] Medical 02/02/2020 12:00:00 AM EST HILDA ([facility]) Merlene Sadler [facility]: [address], [place] [address], Ph. Attender: Merlene Sadler [facility] Medical 02/02/2020 12:00:00 AM EST HILDA ([facility]) Terry Quiroga RPA-C: [address], [place] [address], Ph. Attender: TERRY WASHBURNC [facility] Medical 02/02/2020 12:00:00 AM EST HILDA ([facility]) Merlene Sadler, [facility]: [address], [place] [address], Ph. Attender: Merlene Sadler [facility] Medical 02/02/2020 12:00:00 AM EST HILDA ([facility]) Terry Quiroga RPA-C: [address], [place] [address], Ph. Attender: TERRY QUIROGA RPA-C [facility] Medical 02/02/2020 12:00:00 AM EST HILDA ([facility]) Merlene Sadler, VARIETY PERFORMER: [address], [place] [address], Ph. Attender: Merlene Sadler [facility] Medical 02/02/2020 12:00:00 AM EST HILDA ([facility]) Terry Quiroga RPA-C: [address], [place] [address], Ph. Attender: TERRY QUIROGA RPA-C [facility] Medical 02/02/2020 12:00:00 AM EST HILDA ([facility]) Merlene Sadler, [facility]: [address], [place] [address], Ph. Attender: Merlene Sadler [facility] Medical 02/02/2020 12:00:00 AM EST HILDA ([facility]) Terry Quiroga RPA-C: [address], [place] [address], Ph. Attender: TERRY QUIROGA RPA-C [facility] Medical 02/02/2020 12:00:00 AM EST HILDA ([facility]) Merlene Sadler, VARIETY PERFORMER: [address], [place] [address], Ph. Attender: Merlene Sadler [facility] Medical 02/02/2020 12:00:00 AM EST HILDA ([facility]) Terry Quiroga RPA-C: [address], [place] [address], Ph. Attender: TERRY QUIROGA RPA-C [facility] Medical 02/02/2020 12:00:00 AM EST HILDA ([facility]) Merlene Sadler, VARIETY PERFORMER: [address], [place] [address], Ph. Attender: Merlnee Sadler [facility] Medical 02/02/2020 12:00:00 AM EST HILDA ([facility]) Terry Quiroga RPA-C: [address], [place] [address], Ph. Attender: TERRY QUIROGA RPA-C [facility] Medical 02/02/2020 12:00:00 AM EST HILDA ([facility]) Merlene Sadler [facility]: [address], [place] [address], Ph. Attender: Merlene Sadler [facility] Medical 02/02/2020 12:00:00 AM EST HILDA ([facility]) Terry Quiroga RPA-C: [address], [place] [address], Ph. Attender: TERRY QUIROGA RPA-C [facility] Medical 02/02/2020 12:00:00 AM EST HILDA ([facility]) Merlene Sadler, [facility]: [address], [place] [address], Ph. Attender: Merlene Sadler [facility] Medical 02/02/2020 12:00:00 AM EST HILDA ([facility]) Terry Quiroga RPA-C: [address], [place] [address], Ph. Attender: TERRY QUIROGA RPA-C [facility] Medical 02/02/2020 12:00:00 AM EST HILDA ([facility]) Merlene Sadler, VARIETY PERFORMER: [address], [place] [address], Ph. Attender: Merlene Sadler [facility] Medical 02/02/2020 12:00:00 AM EST HILDA ([facility]) Terry Quiroga RPA-C: [address], [place] [address], Ph. Attender: TERRY QUIROGA RPA-C [facility] Medical 02/02/2020 12:00:00 AM EST HILDA ([facility]) Merlene Sdaler, [facility]: [address], [place] [address], Ph. Attender: Merlene Sadler [facility] Medical 02/02/2020 12:00:00 AM EST HILDA ([facility]) Terry Quiroga RPA-C: [address], [place] [address], Ph. Attender: TERRY QUIROGA RPA-C [facility] Medical 02/02/2020 12:00:00 AM EST HILDA ([facility]) Merlene Sadler, VARIETY PERFORMER: [address], [place] [address], Ph. Attender: Merlene Sadler [facility] Medical 02/02/2020 12:00:00 AM EST HILDA ([facility]) Terry Quiroga RPA-C: [address], [place] [address], Ph. Attender: TERRY QUIROGA RPA-C [facility] Medical 02/02/2020 12:00:00 AM EST HILDA ([facility]) Merlene Sadler, VARIETY PERFORMER: [address], [place] [address], Ph. Attender: Merlene Sadler [facility] Medical 02/02/2020 12:00:00 AM EST HILDA ([facility]) Terry Quiroga, RPA-C: [address], [place] [address], Ph. Attender: TERRY QUIROGA RPA-C [facility] Medical 02/02/2020 12:00:00 AM EST HILDA ([facility]) Merlene Sadler, [facility]: [address], [place] [address], Ph. Attender: Merlene Sadler [facility] Medical 02/02/2020 12:00:00 AM EST HILDA ([facility]) Merlene Sadler, VARIETY PERFORMER: [address], [place] [address], Ph. Attender: Merlene Sadler [facility] Medical 01/28/2020 12:00:00 AM EST HILDA ([facility]) Merlene Sadler, VARIETY PERFORMER: [address], [place] [address], Ph. Attender: Merlene Sadler [facility] Medical 01/28/2020 12:00:00 AM EST HILDA ([facility]) Merlene Sadler, VARIETY PERFORMER: [address], [place] [address], Ph. Attender: Merlene Sadler [facility] Medical 01/28/2020 12:00:00 AM EST HILDA ([facility]) Merlene Sadler, VARIETY PERFORMER: [address], [place] [address], Ph. Attender: Merlene Sadler [facility] Medical 01/28/2020 12:00:00 AM EST HILDA ([facility]) Merlene Sadler, VARIETY PERFORMER: [address], [place] [address], Ph. Attender: Merlene Sadler [facility] Medical 01/28/2020 12:00:00 AM EST HILDA ([facility]) Merlene Sadler, VARIETY PERFORMER: [address], [place] [address], Ph. Attender: Merlene Sadler [facility] [facility] Medical 01/28/2020 12:00:00 AM EST HILDA ([facility]) Merlene Sadler, VARIETY PERFORMER: [address], [place] [address], Ph. Attender: Merlene Sadler [facility] Medical 01/28/2020 12:00:00 AM EST HILDA ([facility]) Merlene Sadler, VARIETY PERFORMER: [address], [place] [address], Ph. Attender: Merlene Sadler [facility] Medical 01/28/2020 12:00:00 AM EST HILDA ([facility]) Merlene Sadler, VARIETY PERFORMER: [address], [place] [address], Ph. Attender: Merlene Sadler [facility] Medical 01/28/2020 12:00:00 AM EST HILDA ([facility]) Merlene Sadler [facility]: [address], [place] [address], Ph. Attender: Merlene Sadler [facility] Medical 01/28/2020 12:00:00 AM EST HILDA ([facility]) Merlene Sadler, [facility]: [address], [place] [address], Ph. Attender: Merlene Sadler [facility] Medical 01/28/2020 12:00:00 AM EST HILDA ([facility]) Merlene Sadler, [facility]: [address], [place] [address], Ph. Attender: Merlene Sadler [facility] Medical 01/28/2020 12:00:00 AM EST HILDA ([facility]) Merlene Sadler, [facility]: [address], [place] [address], Ph. Attender: Merlene Sadler [facility] Medical 01/28/2020 12:00:00 AM EST HILDA ([facility]) Merlene Sadler, [facility]: [address], [place] [address], Ph. Attender: Merlene Sadler [facility] Medical 01/28/2020 12:00:00 AM EST HILDA ([facility]) Merlene Sadler, [facility]: [address], [place] [address], Ph. Attender: Merlene Sadler [facility] Medical 01/28/2020 12:00:00 AM EST HILDA ([facility]) Merlene Sadler, [facility]: [address], [place] [address], Ph. Attender: Merlene Sadler [facility] Medical 01/28/2020 12:00:00 AM EST HILDA ([facility]) Merlene Sadler, VARIETY PERFORMER: [address], [place] [address], Ph. Attender: Merlene Sadler [facility] Medical 01/28/2020 12:00:00 AM EST HILDA ([facility]) Merlene Sadler, VARIETY PERFORMER: [address], [place] [address], Ph. Attender: Merlene Sadler [facility] Medical 01/28/2020 12:00:00 AM EST HILDA ([facility]) Merlene Sadler, [facility]: [address], [place] [address], Ph. Attender: Merlene Sadler [facility] Medical 01/28/2020 12:00:00 AM EST HILDA ([facility]) Merlene Sadler, [facility]: [address], [place] [address], Ph. Attender: Merlene Sadler [facility] Medical 01/28/2020 12:00:00 AM EST HILDA ([facility]) Merlene Sadler, [facility]: [address], [place] [address], Ph. Attender: Merlene Sadler [facility] Medical 01/28/2020 12:00:00 AM EST HILDA ([facility]) Merlene Sadler, VARIETY PERFORMER: [address], [place] [address], Ph. Attender: Merlene Sadler [facility] Medical 01/28/2020 12:00:00 AM EST HILDA ([facility]) Merlene Sadler, VARIETY PERFORMER: [address], [place] [address], Ph. Attender: Merlene Sadler [facility] Medical 01/28/2020 12:00:00 AM EST HILDA ([facility]) Merlene Sadler VARIETY PERFORMER: [address], [place] [address], Ph. Attender: Merlene Sadler [facility] Medical 01/28/2020 12:00:00 AM EST HILDA ([facility]) Merlene Sadler, VARIETY PERFORMER: [address], [place] [address], Ph. Attender: Merlene Sadler [facility] Medical 01/28/2020 12:00:00 AM EST HILDA ([facility]) Merlene Sadler VARIETY PERFORMER: [address], [place] [address], Ph. Attender: Merlene Sadler [facility] Medical 01/28/2020 12:00:00 AM EST HILDA ([facility]) Merlene Sadler VARIETY PERFORMER: [address], [place] [address], Ph. Attender: Merlene Sadler [facility] Medical 01/28/2020 12:00:00 AM EST HILDA ([facility]) Merlene Sadler, VARIETY PERFORMER: [address], [place] [address], Ph. Attender: Merlene Sadler [facility] Medical 01/28/2020 12:00:00 AM EST HILDA ([facility]) Merlene Sadler, VARIETY PERFORMER: [address], [place] [address], Ph. Attender: Merlene Sadler [facility] Medical 01/20/2020 12:00:00 AM EST HILDA ([facility]) Merlene Sadler, [facility]: [address], [place] [address], Ph. Attender: Merlene Sadler [facility] Medical 01/20/2020 12:00:00 AM EST HILDA ([facility]) Merlene Sadler, [facility]: [address], [place] [address], Ph. Attender: Merlene Sadler [facility] Medical 01/20/2020 12:00:00 AM EST HILDA ([facility]) Merlene Sadler, [facility]: [address], [place] [address], Ph. Attender: Merlene Sadler [facility] Medical 01/20/2020 12:00:00 AM EST HILDA ([facility]) Merlene Sadler, VARIETY PERFORMER: [address], [place] [address], Ph. Attender: Merlene Sadler [facility] Medical 01/20/2020 12:00:00 AM EST HILDA ([facility]) Merlene Sadler, VARIETY PERFORMER: [address], [place] [address], Ph. Attender: Merlene Sadler [facility] Medical 01/20/2020 12:00:00 AM EST HILDA ([facility]) Merlene Sadler, VARIETY PERFORMER: [address], [place] [address], Ph. Attender: Merlene Sadler [facility] Medical 01/20/2020 12:00:00 AM EST HILDA ([facility]) Merlene Sadler, VARIETY PERFORMER: [address], [place] [address], Ph. Attender: Merlene Sadler [facility] Medical 01/20/2020 12:00:00 AM EST HILDA ([facility]) Merlene Sadler, VARIETY PERFORMER: [address], [place] [address], Ph. Attender: Merlene Sadler [facility] Medical 01/20/2020 12:00:00 AM EST HILDA ([facility]) Merlene Sadelr, VARIETY PERFORMER: [address], [place] [address], Ph. Attender: Merlene Sadler [facility] Medical 01/20/2020 12:00:00 AM EST HILDA ([facility]) Merlene Sadler, VARIETY PERFORMER: [address], [place] [address], Ph. Attender: Merlene Sadler [facility] Medical 01/20/2020 12:00:00 AM EST HILDA ([facility]) Merlene Sadler, VARIETY PERFORMER: [address], [place] [address], Ph. Attender: Merlene Sadler [facility] Medical 01/20/2020 12:00:00 AM EST HILDA ([facility]) Merlene Sadler, [facility]: [address], [place] [address], Ph. Attender: Merlene Sadler [facility] Medical 01/20/2020 12:00:00 AM EST HILDA ([facility]) Merlene Sadler, VARIETY PERFORMER: [address], [place] [address], Ph. Attender: Merlene Sadler [facility] Medical 01/20/2020 12:00:00 AM EST HILDA ([facility]) Merlene Sadler, [facility]: [address], [place] [address], Ph. Attender: Merlene Sadler [facility] Medical 01/20/2020 12:00:00 AM EST HILDA ([facility]) Merlene Sadler, [facility]: [address], [place] [address], Ph. Attender: Merlene Sadler [facility] Medical 01/20/2020 12:00:00 AM EST HILDA ([facility]) Merlene Sadler, [facility]: [address], [place] [address], Ph. Attender: Merlene Sadler [facility] Medical 01/20/2020 12:00:00 AM EST HILDA ([facility]) Merlene Sadler, [facility]: [address], [place] [address], Ph. Attender: Merlene Sadler [facility] Medical 01/20/2020 12:00:00 AM EST HILDA ([facility]) Merlene Sadler VARIETY PERFORMER: [address], [place] [address], Ph. Attender: Merlene Sadler [facility] Medical 01/20/2020 12:00:00 AM EST HILDA ([facility]) Merlene Sadler, VARIETY PERFORMER: [address], [place] [address], Ph. Attender: Merlene Sadler [facility] Medical 01/20/2020 12:00:00 AM EST HILDA ([facility]) Merlene Sadler VARIETY PERFORMER: [address], [place] [address], Ph. Attender: Merlene Sadler [facility] Medical 01/20/2020 12:00:00 AM EST HILDA ([facility]) Merlene Sadler, VARIETY PERFORMER: [address], [place] [address], Ph. Attender: Merlene Sadler [facility] Medical 01/20/2020 12:00:00 AM EST HILDA ([facility]) Merlene Sadler, VARIETY PERFORMER: [address], [place] [address], Ph. Attender: Merlene Sadler [facility] Medical 01/20/2020 12:00:00 AM EST HILDA ([facility]) Merlene Sadler, VARIETY PERFORMER: [address], [place] [address], Ph. Attender: Merlene Sadler [facility] Medical 01/20/2020 12:00:00 AM EST HILDA ([facility]) Merlene Sadler, [facility]: [address], [place] [address], Ph. Attender: Merlene Sadler [facility] Medical 01/20/2020 12:00:00 AM EST HILDA ([facility]) Merlene Sadler, VARIETY PERFORMER: [address], [place] [address], Ph. Attender: Merlene Sadler [facility] Medical 01/20/2020 12:00:00 AM EST HILDA ([facility]) Merlene Sadler, VARIETY PERFORMER: [address], [place] [address], Ph. Attender: Merlene Sadler [facility] Medical 01/20/2020 12:00:00 AM EST HILDA ([facility]) Merlene Sadler, [facility]: [address], [place] [address], Ph. Attender: Merlene Sadler [facility] Medical 01/20/2020 12:00:00 AM EST HILDA ([facility]) Merlene Sadler [facility]: [address], [place] [address], Ph. Attender: Merlene Sadler [facility] Medical 01/20/2020 12:00:00 AM EST HILDA ([facility]) Merlene Sadler, [facility]: [address], [place] [address], Ph. Attender: Merlene Sadler [facility] Medical 01/16/2020 12:00:00 AM EST HILDA ([facility]) Merlene Sadler, [facility]: [address], [place] [address], Ph. Attender: Merlene Sadler [facility] Medical 01/16/2020 12:00:00 AM EST HILDA ([facility]) Merlene Sadler, VARIETY PERFORMER: [address], [place] [address], Ph. Attender: Merlene Sadler [facility] Medical 01/16/2020 12:00:00 AM EST HILDA ([facility]) Merlene Sadler, VARIETY PERFORMER: [address], [place] [address], Ph. Attender: Merlene Sadler [facility] Medical 01/16/2020 12:00:00 AM EST HILDA ([facility]) Merlene Sadler, VARIETY PERFORMER: [address], [place] [address], Ph. Attender: Merlene Sadler [facility] Medical 01/16/2020 12:00:00 AM EST HILDA ([facility]) Merlene Sadler, VARIETY PERFORMER: [address], [place] [address], Ph. Attender: Merlene Sadler [facility] Medical 01/16/2020 12:00:00 AM EST HILDA ([facility]) Merlene Sadler, VARIETY PERFORMER: [address], [place] [address], Ph. Attender: Merlene Sadler [facility] Medical 01/16/2020 12:00:00 AM EST HILDA ([facility]) Merlene Sadler, VARIETY PERFORMER: [address], [place] [address], Ph. Attender: Merlene Sadler [facility] Medical 01/16/2020 12:00:00 AM EST HILDA ([facility]) Merlene Sadler, VARIETY PERFORMER: [address], [place] [address], Ph. Attender: Merlene Sadler [facility] Medical 01/16/2020 12:00:00 AM EST HILDA ([facility]) Merlene Sadler, VARIETY PERFORMER: [address], [place] [address], Ph. Attender: Merlene Sadler [facility] Medical 01/16/2020 12:00:00 AM EST HILDA ([facility]) Merlene Sadler, VARIETY PERFORMER: [address], [place] [address], Ph. Attender: Merlene Sadler [facility] Medical 01/16/2020 12:00:00 AM EST HILDA ([facility]) Merlene Sadler, VARIETY PERFORMER: [address], [place] [address], Ph. Attender: Merlene Sadler [facility] Medical 01/16/2020 12:00:00 AM EST HILDA ([facility]) Merlene Sadler, VARIETY PERFORMER: [address], [place] [address], Ph. Attender: Merlene Sadler [facility] Medical 01/16/2020 12:00:00 AM EST HILDA ([facility]) Merlene Sadler, VARIETY PERFORMER: [address], [place] [address], Ph. Attender: Merlene Sadler [facility] Medical 01/16/2020 12:00:00 AM EST HILDA ([facility]) Merlene Sadler, VARIETY PERFORMER: [address], [place] [address], Ph. Attender: Merlene Sadler [facility] Medical 01/16/2020 12:00:00 AM EST HILDA ([facility]) Merlene Sadler, VARIETY PERFORMER: [address], [place] [address], Ph. Attender: Merlene Sadler [facility] Medical 01/16/2020 12:00:00 AM EST HILDA ([facility]) Merlene Sadler VARIETY PERFORMER: [address], [place] [address], Ph. Attender: Merlene Sadler [facility] Medical 01/16/2020 12:00:00 AM EST HILDA ([facility]) Merlene Sadler, VARIETY PERFORMER: [address], [place] [address], Ph. Attender: Merlene Sadler [facility] Medical 01/16/2020 12:00:00 AM EST HILDA ([facility]) Merlene Sadler, VARIETY PERFORMER: [address], [place] [address], Ph. Attender: Merlene Sadler [facility] Medical 01/16/2020 12:00:00 AM EST HILDA ([facility]) Merlene Sadler, VARIETY PERFORMER: [address], [place] [address], Ph. Attender: Merlene Sadler [facility] Medical 01/16/2020 12:00:00 AM EST HILDA ([facility]) Merlene Sadler, [facility]: [address], [place] [address], Ph. Attender: Merlene Sadler [facility] Medical 01/16/2020 12:00:00 AM EST HILDA ([facility]) Merlene Sadler, VARIETY PERFORMER: [address], [place] [address], Ph. Attender: Merlene Sadler [facility] Medical 01/16/2020 12:00:00 AM EST HILDA ([facility]) Merlnee Sadler, [facility]: [address], [place] [address], Ph. Attender: Merlene Sadler [facility] Medical 01/16/2020 12:00:00 AM EST HILDA ([facility]) Merlene Sadler, [facility]: [address], [place] [address], Ph. Attender: Merlene Sadler [facility] Medical 01/16/2020 12:00:00 AM EST HILDA ([facility]) Merlene Sadler, [facility]: [address], [place] [address], Ph. Attender: Merlene Sadler [facility] Medical 01/16/2020 12:00:00 AM EST HILDA ([facility]) Merlene Sadler, [facility]: [address], [place] [address], Ph. Attender: Merlene Sadler [facility] Medical 01/16/2020 12:00:00 AM EST HILDA ([facility]) Merlene Sadler, VARIETY PERFORMER: [address], [place] [address], Ph. Attender: Merlene Sadler [facility] Medical 01/16/2020 12:00:00 AM EST HILDA ([facility]) Merlene Sadler, VARIETY PERFORMER: [address], [place] [address], Ph. Attender: Merlene Sadler [facility] Medical 01/16/2020 12:00:00 AM EST HILDA ([facility]) Merlene Sadler, VARIETY PERFORMER: [address], [place] [address], Ph. Attender: Merlene Sadler [facility] Medical 01/16/2020 12:00:00 AM EST HILDA ([facility]) Merlene Sadler, VARIETY PERFORMER: [address], [place] [address], Ph. Attender: Merlene Sadler [facility] Medical 01/16/2020 12:00:00 AM EST I[facility] ([facility]) Merlene Sadler, VARIETY PERFORMER: [address], [place] [address], Ph. Attender: Merlene Sadler [facility] Medical 01/08/2020 12:00:00 AM EST HILDA ([facility]) Merlene Sadler, VARIETY PERFORMER: [address], [place] [address], Ph. Attender: Merlene Sadler [facility] Medical 01/08/2020 12:00:00 AM EST HILDA ([facility]) Merlene Sadler, [facility]: [address], [place] [address], Ph. Attender: Merlene Sadler [facility] Medical 01/08/2020 12:00:00 AM EST HILDA ([facility]) Merlene Sadler, VARIETY PERFORMER: [address], [place] [address], Ph. Attender: Merlene Sadler [facility] Medical 01/08/2020 12:00:00 AM EST HILDA ([facility]) Merlene Sadler, VARIETY PERFORMER: [address], [place] [address], Ph. Attender: Melrene Sadler [facility] Medical 01/08/2020 12:00:00 AM EST HILDA ([facility]) Merlene Sadler, VARIETY PERFORMER: [address], [place] [address], Ph. Attender: Merlene Sadler [facility] Medical 01/08/2020 12:00:00 AM EST [facility] ([facility]) Merlene Sadler, [facility]: [address], [address], [place] [address], Ph. Attender: Merlene Sadler [facility] Medical 01/08/2020 12:00:00 AM EST [facility] ([facility]) Merlene Sadler, [facility]: [address], [address], [place] [address], Ph. Attender: Merlene Sadler [facility] Medical 01/08/2020 12:00:00 AM EST [facility] ([facility]) Merlene Sadler, [facility]: [address], [address], [place] [address], Ph. Attender: Merlene Sadler [facility] Medical 01/08/2020 12:00:00 AM EST [facility] ([facility]) Merlene Sadler, VARIETY PERFORMER: [address], [address], [place] [address], Ph. Attender: Merlene Sadler [facility] Medical 01/08/2020 12:00:00 AM EST [facility] ([facility]) Merlene Sadler, [facility]: [address], [address], [place] [address], Ph. Attender: Merlene Sadler [facility] Medical 01/08/2020 12:00:00 AM EST [facility] ([facility]) Merlene Sadler, [facility]: [address], [address], [place] [address], Ph. Attender: Merlene Sadler [facility] Medical 01/08/2020 12:00:00 AM EST HILDA ([facility]) Merlene Sadler, [facility]: [address], [address], [place] [address], Ph. Attender: Merlene Sadler [facility] Medical 01/08/2020 12:00:00 AM EST HILDA ([facility]) Merlene Sadler, [facility]: [address], [address], [place] [address], Ph. Attender: Merlene Sadler [facility] Medical 01/08/2020 12:00:00 AM EST HILDA ([facility]) Merlene Sadler, [facility]: [address], [address], [place] [address], Ph. Attender: Merlene Sadler [facility] Medical 01/08/2020 12:00:00 AM EST HILDA ([facility]) Merlene Sadler, [employer]: [address], [address], [place] [address], Ph. Attender: Merlene Sadler [facility] Medical 01/08/2020 12:00:00 AM EST HILDA ([facility]) Merlene Sadler, VARIETY PERFORMER: [address], [address], [place] [address], Ph. Attender: Merlene Sadler [facility] Medical 01/08/2020 12:00:00 AM EST HILDA ([facility]) Merlene Sadler, VARIETY PERFORMER: [address], [address], [place] [address], Ph. Attender: Merlene Sadler [facility] Medical 01/08/2020 12:00:00 AM EST HILDA ([facility]) Merlene Sadler, VARIETY PERFORMER: [address], [address], [place] [address], Ph. Attender: Merlene Sadler [facility] Medical 01/08/2020 12:00:00 AM EST HILDA ([facility]) Merlene Sadler, VARIETY PERFORMER: [address], [address], [place] [address], Ph. Attender: Merlene Sadler [facility] Medical 01/08/2020 12:00:00 AM EST HILDA ([facility]) Merlene Sadler, VARIETY PERFORMER: [address], [address], [place] [address], Ph. Attender: Merlene Sadler [facility] Medical 01/08/2020 12:00:00 AM EST HILDA ([facility]) Merlene Sadler, VARIETY PERFORMER: [address], [address], [place] [address], Ph. Attender: Merlene Sadler [facility] Medical 01/08/2020 12:00:00 AM EST HILDA ([facility]) Merlene Sadler, VARIETY PERFORMER: [address], [address], [place] [address], Ph. Attender: Merlene Sadler [facility] Medical 01/08/2020 12:00:00 AM EST HILDA ([facility]) Merlene Sadler VARIETY PERFORMER: [address], [address], [place] [address], Ph. Attender: Merlene Sadler [facility] Medical 01/08/2020 12:00:00 AM EST HILDA ([facility]) Merlene Sadler, VARIETY PERFORMER: [address], [address], [place] [address], Ph. Attender: Merlene Sadler [facility] Medical 01/08/2020 12:00:00 AM EST HILDA ([facility]) Merlene Sadler, VARIETY PERFORMER: [address], [address], [place] [address], Ph. Attender: Merlene Sadler [facility] Medical 01/08/2020 12:00:00 AM EST HILDA ([facility]) Merlene Sadler, VARIETY PERFORMER: [address], [address], [place] [address], Ph. Attender: Merlene Sadler [facility] Medical 01/08/2020 12:00:00 AM EST HILDA ([facility]) Merlene Sadler, [facility]: [address], [address], [place] [address], Ph. Attender: Merlene Sadler [facility] Medical 01/08/2020 12:00:00 AM EST HILDA ([facility]) Merlene Sadler, VARIETY PERFORMER: [address], [address], [place] [address], Ph. Attender: Merlene Sadler [facility] Medical 01/08/2020 12:00:00 AM EST HILDA ([facility]) Merlene Sadler, [facility]: [address], [address], [place] [address], Ph. Attender: Merlene Sadler [facility] Medical 01/08/2020 12:00:00 AM EST HILDA ([facility]) Merlene Sadler, [facility]: [address], [address], [place] [address], Ph. Attender: Merlene Sadler [facility] Medical 01/08/2020 12:00:00 AM EST HILDA ([facility]) Merlene Sadler, [facility]: [address], [address], [place] [address], Ph. Attender: Merlene Sadler [facility] Medical 01/08/2020 12:00:00 AM EST HILDA ([facility]) Merlene Sadler, [facility]: [address], [address], [place] [address], Ph. Attender: Merlene Sadler [place] [facility] Medical 01/08/2020 12:00:00 AM EST HILDA ([facility]) Outpatient Attender: PALOMO LOVE MD Main Office 01/07/2020 12:00:00 PM EST MEDJUAN RAMON ([facility]) Terry Quiroga RPA-C: [address], [address], [place] [address], Ph. Attender: TERRY QUIROGA RPA-C [facility] Medical 01/06/2020 12:00:00 AM EST HILDA ([facility]) Terry Quiroga RPA-C: [address], [address], [place] [address], Ph. Attender: TERRY QUIROGA RPA-C [facility] Medical 01/06/2020 12:00:00 AM EST HILDA ([facility]) Terry Quiroga RPA-C: [address], [address], [place] [address], Ph. Attender: TERRY WASHBURNC [facility] Medical 01/06/2020 12:00:00 AM EST HILDA ([facility]) Terry Quiroga RPA-C: [address], [address], [place] [address], Ph. Attender: TERRY QUIROGA RPA-C [facility] Medical 01/06/2020 12:00:00 AM EST HILDA ([facility]) Terry Quiroga RPA-C: [address], [address], [place] [address], Ph. Attender: TERRY QUIROGA RPA-C [facility] Medical 01/06/2020 12:00:00 AM EST HILDA ([facility]) Terry D Quiroga, RPA-C: [address], [address], [place] [address], Ph. Attender: TERRY QUIROGA RPA-C [facility] Medical 01/06/2020 12:00:00 AM EST HILDA ([facility]) Terry Quiroga, RPA-C: [address], [address], [place] [address], Ph. Attender: TERRY QUIROGA RPA-C [facility] Medical 01/06/2020 12:00:00 AM EST HILDA ([facility]) Terry Quiroga, RPA-C: [address], [address], [place] [address], Ph. Attender: TERRY QUIROGA RPA-C [facility] Medical 01/06/2020 12:00:00 AM EST HILDA ([facility]) Terry Quiroga, RPA[facility]C: [address], [address], [place] [address], Ph. Attender: TERRY QUIROGA RPA-C [facility] Medical 01/06/2020 12:00:00 AM EST HILDA ([facility]) Terry Quiroga RPA-C: [address], [address], [place] [address], Ph. Attender: TERRY QUIROGA RPA-C [facility] Medical 01/06/2020 12:00:00 AM EST HILDA ([facility]) Terry Quiroga, RPA-C: [address], [address], [place] [address], Ph. Attender: TERRY QUIROGA RPA-C [facility] Medical 01/06/2020 12:00:00 AM EST HILDA ([facility]) Terry Quiroga, RPA-C: [address], [address], [place] [address], Ph. Attender: TERRY QUIROGA RPA-C [facility] Medical 01/06/2020 12:00:00 AM EST HILDA ([facility]) Terry Quiroga, RPA-C: [address], [address], [place] [address], Ph. Attender: TERRY QUIROGA RPA-C [facility] Medical 01/06/2020 12:00:00 AM EST HILDA ([facility]) Terry Quiroga RPA-C: [address], [address], [place] [address], Ph. Attender: TERRY QUIROGA RPA-C [facility] Medical 01/06/2020 12:00:00 AM EST HILDA ([facility]) Terry Quiroga, RPA-C: [address], [address], [place] [address], Ph. Attender: TERRY QUIROGA RPA-C [facility] Medical 01/06/2020 12:00:00 AM EST HILDA ([facility]) Terry Quiroga, RPA-C: [address], [address], [place] [address], Ph. Attender: TERRY QUIROGA RPA-C [facility] Medical 01/06/2020 12:00:00 AM EST HILDA ([facility]) Terry Quiroga, RPA-C: [address], [address], [place] [address], Ph. Attender: TERRY QUIROGA RPA-C [facility] Medical 01/06/2020 12:00:00 AM EST HILDA ([facility]) Terry Quiroga RPA-C: [address], [address], [place] [address], Ph. Attender: TERRY QUIROGA RPA-C [facility] Medical 01/06/2020 12:00:00 AM EST HILDA ([facility]) Terry Quiroga RPA-C: [address], [address], [place] [address], Ph. Attender: TERRY QUIROGA RPA-C [facility] Medical 01/06/2020 12:00:00 AM EST HILDA ([facility]) Terry Quiroga RPA-C: [address], [address], [place] [address], Ph. Attender: TERRY QUIROGA RPA-C [facility] Medical 01/06/2020 12:00:00 AM EST HILDA ([facility]) Terry Quiroga RPA-C: [address], [address], [place] [address], Ph. Attender: TERRY QUIROGA RPA-C [facility] Medical 01/06/2020 12:00:00 AM EST HILDA ([facility]) Terry Quiorga, RPA-C: [address], [address], [place] [address], Ph. Attender: TERRY QUIROGA RPA-C [facility] Medical 01/06/2020 12:00:00 AM EST HILDA ([facility]) Terry Quiroga RPA-C: [address], [address], [place] [address], Ph. Attender: TERRY QUIROGA RPA-C [facility] Medical 01/06/2020 12:00:00 AM EST HILDA ([facility]) Terry Quiroga RPA-C: [address], [address], [place] [address], Ph. Attender: TERRY QUIROGA RPA-C [facility] Medical 01/06/2020 12:00:00 AM EST HILDA ([facility]) Terry Quiroga RPA-C: [address], [address], [place] [address], Ph. Attender: TERRY QUIROGA RPA-C [facility] Medical 01/06/2020 12:00:00 AM EST HILDA ([facility]) Terry Quiroga RPA-C: [address], [address], [place] [address], Ph. Attender: TERRY QUIROGA RPA-C [facility] Medical 01/06/2020 12:00:00 AM EST HILDA ([facility]) Terry Quiroga RPA-C: [address], [address], [place] [address], Ph. Attender: TERRY QUIROGA RPA-C [facility] Medical 01/06/2020 12:00:00 AM EST HILDA ([facility]) Terry Quiroga RPA-C: [address], [address], [place] [address], Ph. Attender: TERRY QUIROGA RPA-C [facility] Medical 01/06/2020 12:00:00 AM EST HILDA ([facility]) Terry Quiroga RPA-C: [address], [address], [place] [address], Ph. Attender: TERRY QUIROGA RPA-C [facility] Medical 01/06/2020 12:00:00 AM EST HILDA ([facility]) Terry Quiroga, RPA-C: [address], [address], [place] [address], Ph. Attender: TERRY QUIROGA RPA-C [facility] Medical 01/06/2020 12:00:00 AM EST HILDA ([facility]) Terry Quiroga RPA-C: [address], [address], [place] [address], Ph. Attender: TERRY QUIROGA RPA-C [facility] Medical 01/06/2020 12:00:00 AM EST HILDA ([facility]) Terry Quiroga, RPA-C: [address], [address], [place] [address], Ph. Attender: TERRY QUIROGA RPA-C [facility] Medical 01/06/2020 12:00:00 AM EST HILDA ([facility]) Terry Quiroga RPA-C: [address], [address], [place] [address], Ph. Attender: TERRY QUIROGA RPA-C [facility] Medical 01/06/2020 12:00:00 AM EST HILDA ([facility]) Terry Quiroga, RPA-C: [address], [address], [place] [address], Ph. Attender: TERRY QUIROGA RPA-C [facility] Medical 12/31/2019 12:00:00 AM EST HILDA ([facility]) Terry Quiroga, RPA-C: [address], [address], [place] [address], Ph. Attender: TERRY QUIROGA RPA-C [facility] Medical 12/31/2019 12:00:00 AM EST HILDA ([facility]) Terry Quiroga, RPA-C: [address], [address], [place] [address], Ph. Attender: TERRY QUIROGA RPA-C [facility] Medical 12/31/2019 12:00:00 AM EST HILDA ([facility]) Terry Quiroga RPA-C: [address], [address], [place] [address], Ph. Attender: TERRY QUIROGA RPA-C [facility] Medical 12/31/2019 12:00:00 AM EST HILDA ([facility]) Terry Quiroga, RPA-C: [address], [address], [place] [address], Ph. Attender: TERRY QUIROGA RPA-C [facility] Medical 12/31/2019 12:00:00 AM EST HILDA ([facility]) Terry Quiroga, RPA-C: [address], [address], [place] [address], Ph. Attender: TERRY QUIROGA RPA-C [facility] Medical 12/31/2019 12:00:00 AM EST HILDA ([facility]) Terry Quiroga RPA-C: [address], [address], [place] [address], Ph. Attender: TERRY QUIROGA RPA-C [facility] Medical 12/31/2019 12:00:00 AM EST HILDA ([facility]) Terry Quiroga RPA-C: [address], [address], [place] [address], Ph. Attender: TERRY QUIROGA RPA-C [facility] Medical 12/31/2019 12:00:00 AM EST HILDA ([facility]) Terry Quiroga RPA-C: [address], [address], [place] [address], Ph. Attender: TERRY QUIROGA RPA-C [facility] Medical 12/31/2019 12:00:00 AM EST HILDA ([facility]) Terry Quiroga RPA-C: [address], [address], [place] [address], Ph. Attender: TERRY QUIROGA RPA-C [facility] Medical 12/31/2019 12:00:00 AM EST HILDA ([facility]) Terry Quiroga RPA-C: [address], [address], [place] [address], Ph. Attender: TERRY QUIROGA RPA-C [facility] Medical 12/31/2019 12:00:00 AM EST HILDA ([facility]) Terry Quiroga, RPA-C: [address], [address], [place] [address], Ph. Attender: TERRY QUIROGA RPA-C [facility] Medical 12/31/2019 12:00:00 AM EST HILDA ([facility]) Terry Quiroga RPA-C: [address], [address], [place] [address], Ph. Attender: TERRY QUIROGA RPA-C [facility] Medical 12/31/2019 12:00:00 AM EST HILDA ([facility]) Terry Quiroga RPA-C: [address], [address], [place] [address], Ph. Attender: TERRY QUIROGA RPA-C [facility] Medical 12/31/2019 12:00:00 AM EST HILDA ([facility]) Terry Quiroga RPA-C: [address], [address], [place] [address], Ph. Attender: TERRY QUIROGA RPA-C [facility] Medical 12/31/2019 12:00:00 AM EST HILDA ([facility]) Terry Quiroga RPA-C: [address], [address], [place] [address], Ph. Attender: TERRY QUIROGA RPA-C [facility] Medical 12/31/2019 12:00:00 AM EST HILDA ([facility]) Terry Quiroga, RPA-C: [address], [address], [place] [address], Ph. Attender: TERRY QUIORGA RPA-C [facility] Medical 12/31/2019 12:00:00 AM EST HILDA ([facility]) Terry Quiroga RPA-C: [address], [address], [place] [address], Ph. Attender: TERRY QUIROGA RPA-C [facility] Medical 12/31/2019 12:00:00 AM EST HILDA ([facility]) Terry D Quiroga, RPA-C: [address], [address], [place] [address], Ph. Attender: TERRY QUIROGA RPA-C [facility] Medical 12/31/2019 12:00:00 AM EST HILDA ([facility]) Terry Quiroga, RPA-C: [address], [address], [place] [address], Ph. Attender: TERRY QUIROGA RPA-C [facility] Medical 12/31/2019 12:00:00 AM EST HILDA ([facility]) Terry Quiroga RPA-C: [address], [address], [place] [address], Ph. Attender: TERRY QUIROGA RPA-C [facility] Medical 12/31/2019 12:00:00 AM EST HILDA ([facility]) Terry Quiroga, RPA-C: [address], [address], [place] [address], Ph. Attender: TERRY QUIROGA RPA-C [facility] Medical 12/31/2019 12:00:00 AM EST HILDA ([facility]) Terry Quiroga RPA-C: [address], [address], [place] [address], Ph. Attender: TERRY QUIROGA RPA-C [facility] Medical 12/31/2019 12:00:00 AM EST HILDA ([facility]) Terry Quiroga, RPA-C: [address], [address], [place] [address], Ph. Attender: TERRY QUIROGA RPA-C [facility] Medical 12/31/2019 12:00:00 AM EST HILDA ([facility]) Terry Quiroga, RPA-C: [address], [address], [place] [address], Ph. Attender: TERRY QUIROGA RPA-C [facility] Medical 12/31/2019 12:00:00 AM EST HILDA ([facility]) Terry Quiroga, RPA-C: [address], [address], [place] [address], Ph. Attender: TERRY QUIROGA RPA-C [facility] Medical 12/31/2019 12:00:00 AM EST HILDA ([facility]) Terry Quiroga, RPA-C: [address], [address], [place] [address], Ph. Attender: TERRY QUIROGA RPA-C [facility] Medical 12/31/2019 12:00:00 AM EST HILDA ([facility]) Terry Quiroga, RPA-C: [address], [address], [place] [address], Ph. Attender: TERRY QUIROGA RPA-C [facility] Medical 12/31/2019 12:00:00 AM EST HILDA ([facility]) Terry Quiroga, RPA-C: [address], [address], [place] [address], Ph. Attender: TERRY QUIROGA RPA-C [facility] Medical 12/31/2019 12:00:00 AM EST HILDA ([facility]) Terry Quiroga RPA-C: [address], [address], [place] [address], Ph. Attender: TERRY QUIROGA RPA-C [facility] Medical 12/31/2019 12:00:00 AM EST HILDA ([facility]) Terry Quiroga RPA-C: [address], [address], [place] [address], Ph. Attender: TERRY QUIROGA RPA-C [facility] Medical 12/31/2019 12:00:00 AM EST HILDA ([facility]) Terry Quiroga RPA-C: [address], [address], [place] [address], Ph. Attender: TERRY QUIROGA RPA-C [facility] Medical 12/31/2019 12:00:00 AM EST HILDA ([facility]) Terry Quiroga RPA-C: [address], [address], [place] [address], Ph. Attender: TERRY QUIROGA RPA-C [facility] Medical 12/31/2019 12:00:00 AM EST HILDA ([facility]) Merlenemarie Sadler, VARIETY PERFORMER: [address], [address], [place] [address], Ph. Attender: Merlene Sadler [facility] Medical 12/26/2019 12:00:00 AM EST HILDA ([facility]) Merlene Sadler, VARIETY PERFORMER: [address], [address], [place] [address], Ph. Attender: Merlene Sadler [facility] Medical 12/26/2019 12:00:00 AM EST HILDA ([facility]) Merlene Sadler, VARIETY PERFORMER: [address], [address], [place] [address], Ph. Attender: Merlene Sadler [facility] Medical 12/26/2019 12:00:00 AM EST HILDA ([facility]) Merlene Sadler, [facility]: [address], [address], [place] [address], Ph. Attender: Merlene Sadler [facility] Medical 12/26/2019 12:00:00 AM EST HILDA ([facility]) Merlene Sadler, [facility]: [address], [place] [address], Ph. Attender: Merlene Sadler [facility] Medical 12/26/2019 12:00:00 AM EST [facility] ([facility]) Merlene Sadler, [facility]: [address], [place] [address], Ph. Attender: Merlene Sadler [facility] Medical 12/26/2019 12:00:00 AM EST [facility]ILDA ([facility]) Merlene Sadler, [facility]: [address], [place] [address], Ph. Attender: Merlene Sadler [facility] Medical 12/26/2019 12:00:00 AM EST [facility]ILDA ([facility]) Merlene Sadler, [facility]: [address], [place] [address], Ph. Attender: Merlene Sadler [facility] Medical 12/26/2019 12:00:00 AM EST [facility]ILDA ([facility]) Merlene Sadler, [facility]: [address], [place] [address], Ph. Attender: Merlene Sadler [facility] Medical 12/26/2019 12:00:00 AM EST [facility]ILDA ([facility]) Merlene Sadler, [employer]: [address], [place] [address], Ph. Attender: Merlene Sadler [facility] Medical 12/26/2019 12:00:00 AM EST [facility]ILDA ([facility]) Merlene Sadler, [employer]: [address], [place] [address], Ph. Attender: Merlene Sadler [facility] Medical 12/26/2019 12:00:00 AM EST [facility]ILDA ([facility]) Merlene Sadler, [employer]: [address], [place] [address], Ph. Attender: Merlene Sadler [facility] Medical 12/26/2019 12:00:00 AM EST [facility]ILDA ([facility]) Merlene Sadler, [employer]: [address], [place] [address], Ph. Attender: Merlene Sadler [facility] Medical 12/26/2019 12:00:00 AM EST HILDA ([facility]) Merlene aSdler, VARIETY PERFORMER: [address], [place] [address], Ph. Attender: Merlene Sadler [facility] Medical 12/26/2019 12:00:00 AM EST HILDA ([facility]) Merlene Sadler, VARIETY PERFORMER: [address], [place] [address], Ph. Attender: Merlene Sadler [facility] Medical 12/26/2019 12:00:00 AM EST HILDA ([facility]) Merlene Sadler, [facility]: [address], [place] [address], Ph. Attender: Merlene Sadler [facility] Medical 12/26/2019 12:00:00 AM EST HILDA ([facility]) Merlene Sadler, VARIETY PERFORMER: [address], [place] [address], Ph. Attender: Merlene Sadler [facility] Medical 12/26/2019 12:00:00 AM EST HILDA ([facility]) Merlene Sadler, VARIETY PERFORMER: [address], [place] [address], Ph. Attender: Merlene Sadler [facility] Medical 12/26/2019 12:00:00 AM EST HILDA ([facility]) Merlene Sadler, VARIETY PERFORMER: [address], [place] [address], Ph. Attender: Merlene Sadler [facility] Medical 12/26/2019 12:00:00 AM EST HILDA ([facility]) Merlene Sadler, [facility]: [address], [place] [address], Ph. Attender: Merlene Sadler [facility] Medical 12/26/2019 12:00:00 AM EST HILDA ([facility]) Merlene Sadler, [facility]: [address], [place] [address], Ph. Attender: Merlene Sadler [facility] Medical 12/26/2019 12:00:00 AM EST HILDA ([facility]) Merlene Sadler, [facility]: [address], [place] [address], Ph. Attender: Merlene Sadler [facility] Medical 12/26/2019 12:00:00 AM EST HILDA ([facility]) Merlene Sadler, [facility]: [address], [place] [address], Ph. Attender: Merlene Sadler [facility] Medical 12/26/2019 12:00:00 AM EST HILDA ([facility]) Merlene Sadler, [facility]: [address], [place] [address], Ph. Attender: Merlene Sadler [facility] Medical 12/26/2019 12:00:00 AM EST HILDA ([facility]) Merlene Sadler, [facility]: [address], [place] [address], Ph. Attender: Merlene Sadler [facility] Medical 12/26/2019 12:00:00 AM EST HILDA ([facility]) Merlene Sadler, [facility]: [address], [place] [address], Ph. Attender: Merlene Sadler [facility] Medical 12/26/2019 12:00:00 AM EST HILDA ([facility]) Merlene Sadler, [facility]: [address], [place] [address], Ph. Attender: Merlene Sadler [facility] Medical 12/26/2019 12:00:00 AM EST HILDA ([facility]) Merlene Sadler, [facility]: [address], [place] [address], Ph. Attender: Merlene Sadler [facility] Medical 12/26/2019 12:00:00 AM EST HILDA ([facility]) Merlene Sadler, VARIETY PERFORMER: [address], [place] [address], Ph. Attender: Merlene Sadler [facility] Medical 12/26/2019 12:00:00 AM EST HILDA ([facility]) Merlene Sadler, VARIETY PERFORMER: [address], [place] [address], Ph. Attender: Merlene Sadler [facility] Medical 12/26/2019 12:00:00 AM EST HILDA ([facility]) Merlene Sadler, VARIETY PERFORMER: [address], [place] [address], Ph. Attender: Merlene Sadler [facility] Medical 12/26/2019 12:00:00 AM EST HILDA ([facility]) Merlene Sadler, VARIETY PERFORMER: [address], [place] [address], Ph. Attender: Merlene Sadler [facility] Medical 12/26/2019 12:00:00 AM EST HILDA ([facility]) Merlene Sadler, VARIETY PERFORMER: [address], [place] [address], Ph. Attender: Merlene Sadler [facility] Medical 12/26/2019 12:00:00 AM EST HILDA ([facility]) Merlene Sadler, VARIETY PERFORMER: [address], [place] [address], Ph. Attender: Merlene Sadler [facility] Medical 12/26/2019 12:00:00 AM EST HILDA ([facility]) Merlene Sadler, VARIETY PERFORMER: [address], [place] [address], Ph. Attender: Merlene Sadler [facility] Medical 12/19/2019 12:00:00 AM EST HILDA ([facility]) Merlene Sadler, VARIETY PERFORMER: [address], [place] [address], Ph. Attender: Merlene Sadler [facility] Medical 12/19/2019 12:00:00 AM EST HILDA ([facility]) Merlene Sadler, VARIETY PERFORMER: [address], [place] [address], Ph. Attender: Merlene Sadler [facility] Medical 12/19/2019 12:00:00 AM EST HILDA ([facility]) Merlene Sadler, VARIETY PERFORMER: [address], [place] [address], Ph. Attender: Merlene Sadler [facility] Medical 12/19/2019 12:00:00 AM EST HILDA ([facility]) Merlene Sadler, VARIETY PERFORMER: [address], [place] [address], Ph. Attender: Merlene Sadler [facility] Medical 12/19/2019 12:00:00 AM EST [facility]AD ([facility]) Merlene Sadler, VARIETY PERFORMER: [address], [place] [address], Ph. Attender: Merlene Sadler [facility] Medical 12/19/2019 12:00:00 AM EST HILDA ([facility]) Merlene Sadler, [facility]: [address], [place] [address], Ph. Attender: Merlene Sadler [facility] Medical 12/19/2019 12:00:00 AM EST HILDA ([facility]) Merlene Sadler, VARIETY PERFORMER: [address], [place] [address], Ph. Attender: Merlene Sadler [facility] Medical 12/19/2019 12:00:00 AM EST HILDA ([facility]) Merlene Sadler, [facility]: [address], [place] [address], Ph. Attender: Merlene Sadler [facility] Medical 12/19/2019 12:00:00 AM EST HILDA ([facility]) Merlene Sadler, [facility]: [address], [place] [address], Ph. Attender: Merlene Sadler [facility] Medical 12/19/2019 12:00:00 AM EST HILDA ([facility]) Merlene Sadler, [facility]: [address], [place] [address], Ph. Attender: Merlene Sadler [facility] Medical 12/19/2019 12:00:00 AM EST HILDA ([facility]) Merlene Sadler, VARIETY PERFORMER: [address], [place] [address], Ph. Attender: Merlene Sadler [facility] Medical 12/19/2019 12:00:00 AM EST HILDA ([facility]) Merlene Sadler, [facility]: [address], [place] [address], Ph. Attender: Merlene Sadler [facility] Medical 12/19/2019 12:00:00 AM EST HILDA ([facility]) Merlene Sadler, VARIETY PERFORMER: [address], [place] [address], Ph. Attender: Merlene Sadler [facility] Medical 12/19/2019 12:00:00 AM EST HILDA ([facility]) Merlene Sadler, VARIETY PERFORMER: [address], [place] [address], Ph. Attender: Merlene Sadler [facility] Medical 12/19/2019 12:00:00 AM EST HILDA ([facility]) Merlene Sadler, [facility]: [address], [place] [address], Ph. Attender: Merlene Sadler [facility] Medical 12/19/2019 12:00:00 AM EST HILDA ([facility]) Merlene Sadler [facility]: [address], [place] [address], Ph. Attender: Merlene Sadler [facility] Medical 12/19/2019 12:00:00 AM EST HILDA ([facility]) Merlene Sadler, VARIETY PERFORMER: [address], [place] [address], Ph. Attender: Merlene Sadler [facility] Medical 12/19/2019 12:00:00 AM EST HILDA ([facility]) Merlene Sadler, [facility]: [address], [place] [address], Ph. Attender: Merlene Sadler [facility] Medical 12/19/2019 12:00:00 AM EST HILDA ([facility]) Merlene Sadler, VARIETY PERFORMER: [address], [place] [address], Ph. Attender: Merlene Sadler [facility] Medical 12/19/2019 12:00:00 AM EST HILDA ([facility]) Merlene Sadler, VARIETY PERFORMER: [address], [place] [address], Ph. Attender: Merlene Sadler [facility] Medical 12/19/2019 12:00:00 AM EST HILDA ([facility]) Merlene Sadler, VARIETY PERFORMER: [address], [place] [address], Ph. Attender: Merlene Sadler [facility] Medical 12/19/2019 12:00:00 AM EST HILDA ([facility]) Merlene Sadler VARIETY PERFORMER: [address], [place] [address], Ph. Attender: Merlene Sadler [facility] Medical 12/19/2019 12:00:00 AM EST HILDA ([facility]) Merlene Sadler, VARIETY PERFORMER: [address], [place] [address], Ph. Attender: Merlene Sadler [facility] Medical 12/19/2019 12:00:00 AM EST HILDA ([facility]) Merlene Sadler, [facility]: [address], [place] [address], Ph. Attender: Merlene Sadler [facility] Medical 12/19/2019 12:00:00 AM EST HILDA ([facility]) Merlene Sadler, VARIETY PERFORMER: [address], [place] [address], Ph. Attender: Merlene Sadler [facility] Medical 12/19/2019 12:00:00 AM EST HILDA ([facility]) Merlene Sadler, [facility]: [address], [place] [address], Ph. Attender: Merlene Sadler [facility] Medical 12/19/2019 12:00:00 AM EST HILDA ([facility]) Merlene Sadler, [facility]: [address], [place] [address], Ph. Attender: Merlene Sadler [facility] Medical 12/19/2019 12:00:00 AM EST HILDA ([facility]) Merlene Sadler, [facility]: [address], [place] [address], Ph. Attender: Merlene Sadler [facility] Medical 12/19/2019 12:00:00 AM EST HILDA ([facility]) Merlene Sadler, [facility]: [address], [place] [address], Ph. Attender: Merlene Sadler [facility] Medical 12/19/2019 12:00:00 AM EST HILDA ([facility]) Merlene Sadler, VARIETY PERFORMER: [address], [place] [address], Ph. Attender: Merlene Sadler [facility] Medical 12/19/2019 12:00:00 AM EST HILDA ([facility]) Merlene Sadler, VARIETY PERFORMER: [address], [place] [address], Ph. Attender: Merlene Sadler [facility] Medical 12/19/2019 12:00:00 AM EST HILDA ([facility]) Merlene Sadler, VARIETY PERFORMER: [address], [place] [address], Ph. Attender: Merlene Sadler [facility] Medical 12/19/2019 12:00:00 AM EST HILDA ([facility]) Melrene Sadler, VARIETY PERFORMER: [address], [place] [address], Ph. Attender: Merlene Sadler [facility] Medical 12/19/2019 12:00:00 AM EST HILDA ([facility]) Merlene Sadler, VARIETY PERFORMER: [address], [place] [address], Ph. Attender: Merlene Sadler [facility] Medical 12/19/2019 12:00:00 AM EST HILDA ([facility]) Merlene Sadler, VARIETY PERFORMER: [address], [place] [address], Ph. Attender: Merlene Sadler [facility] Medical 12/19/2019 12:00:00 AM EST HILDA ([facility]) Merlene Sadler, VARIETY PERFORMER: [address], [place] [address], Ph. Attender: Merlene Sadler [facility] Medical 12/18/2019 12:00:00 AM EST HILDA ([facility]) Merlene Sadler, VARIETY PERFORMER: [address], [place] [address], Ph. Attender: Merlene Sadler [facility] Medical 12/18/2019 12:00:00 AM EST HILDA ([facility]) Merlene Sadler, VARIETY PERFORMER: [address], [place] [address], Ph. Attender: Merlene Sadler [facility] Medical 12/18/2019 12:00:00 AM EST HILDA ([facility]) Merlene Sadler, VARIETY PERFORMER: [address], [place] [address], Ph. Attender: Merlene Sadler [facility] Medical 12/18/2019 12:00:00 AM EST HILDA ([facility]) Merlene Sadler, VARIETY PERFORMER: [address], [place] [address], Ph. Attender: Merlene Sadler [facility] Medical 12/18/2019 12:00:00 AM EST HILDA ([facility]) Merlene Sadler, VARIETY PERFORMER: [address], [place] [address], Ph. Attender: Merlene Sadler [facility] Medical 12/18/2019 12:00:00 AM EST HILDA ([facility]) Merlene Sadler, VARIETY PERFORMER: [address], [place] [address], Ph. Attender: Merlene Sadler [facility] Medical 12/18/2019 12:00:00 AM EST HILDA ([facility]) Merlene Sadler, VARIETY PERFORMER: [address], [place] [address], Ph. Attender: Merlene Sadler [facility] Medical 12/18/2019 12:00:00 AM EST HILDA ([facility]) Merlene Sadler, VARIETY PERFORMER: [address], [place] [address], Ph. Attender: Merlene Sadler [facility] Medical 12/18/2019 12:00:00 AM EST HILDA ([facility]) Merlene Sadler, [facility]: [address], [place] [address], Ph. Attender: Merlene Sadler [facility] Medical 12/18/2019 12:00:00 AM EST HILDA ([facility]) Merlene Sadler, [facility]: [address], [place] [address], Ph. Attender: Merlene Sadler [facility] Medical 12/18/2019 12:00:00 AM EST HILDA ([facility]) Merlene Sadler, [facility]: [address], [place] [address], Ph. Attender: Merlene Sadler [facility] Medical 12/18/2019 12:00:00 AM EST HILDA ([facility]) Merlene Sadler, VARIETY PERFORMER: [address], [place] [address], Ph. Attender: Merlene Sadler [facility] Medical 12/18/2019 12:00:00 AM EST HILDA ([facility]) Merlene Sadler, VARIETY PERFORMER: [address], [place] [address], Ph. Attender: Merlene Sadler [facility] Medical 12/18/2019 12:00:00 AM EST HILDA ([facility]) Merlene Sadler, VARIETY PERFORMER: [address], [place] [address], Ph. Attender: Merlene Sadler [facility] Medical 12/18/2019 12:00:00 AM EST HILDA ([facility]) Merlene Sadler, VARIETY PERFORMER: [address], [place] [address], Ph. Attender: Merlene Sadler [facility] Medical 12/18/2019 12:00:00 AM EST HILDA ([facility]) Merlene Sadler, VARIETY PERFORMER: [address], [place] [address], Ph. Attender: Merlene Sadler [facility] Medical 12/18/2019 12:00:00 AM EST HILDA ([facility]) Merlene Sadler, VARIETY PERFORMER: [address], [place] [address], Ph. Attender: Merlene Sadler [facility] Medical 12/18/2019 12:00:00 AM EST HILDA ([facility]) Merlene Sadler, VARIETY PERFORMER: [address], [place] [address], Ph. Attender: Merlene Sadler [facility] Medical 12/18/2019 12:00:00 AM EST HILDA ([facility]) Merlene Sadler VARIETY PERFORMER: [address], [place] [address], Ph. Attender: Merlene Sadler [facility] Medical 12/18/2019 12:00:00 AM EST HILDA ([facility]) Merlene Sadler VARIETY PERFORMER: [address], [place] [address], Ph. Attender: Merlene Sadler [facility] Medical 12/18/2019 12:00:00 AM EST HILDA ([facility]) Merlene Sadler VARIETY PERFORMER: [address], [place] [address], Ph. Attender: Merlene Sadler [facility] Medical 12/18/2019 12:00:00 AM EST HILDA ([facility]) Merleen Sadler, VARIETY PERFORMER: [address], [place] [address], Ph. Attender: Merlene Sadler [facility] Medical 12/18/2019 12:00:00 AM EST HILDA ([facility]) Merlene Sadler VARIETY PERFORMER: [address], [place] [address], Ph. Attender: Merlene Sadler [facility] Medical 12/18/2019 12:00:00 AM EST HILDA ([facility]) Merlene Sadler VARIETY PERFORMER: [address], [place] [address], Ph. Attender: Merlene Sadler [facility] Medical 12/18/2019 12:00:00 AM EST HILDA ([facility]) Merlene Sadler, VARIETY PERFORMER: [address], [place] [address], Ph. Attender: Merlene Sadler [facility] Medical 12/18/2019 12:00:00 AM EST HILDA ([facility]) Merlene Sadler, VARIETY PERFORMER: [address], [place] [address], Ph. Attender: Merlene Sadler [facility] Medical 12/18/2019 12:00:00 AM EST HILDA ([facility]) Merlene Sadler, [facility]: [address], [place] [address], Ph. Attender: Merlene Sadler [facility] Medical 12/18/2019 12:00:00 AM EST HILDA ([facility]) Merlene Sadler, [facility]: [address], [place] [address], Ph. Attender: Merlene Sadler [facility] Medical 12/18/2019 12:00:00 AM EST HILDA ([facility]) Merlene Sadler, [facility]: [address], [place] [address], Ph. Attender: Merlene Sadler [facility] Medical 12/18/2019 12:00:00 AM EST [facility] ([facility]) Merlene Sadler, [facility]: [address], [place] [address], Ph. Attender: Merlene Sadler [facility] Medical 12/18/2019 12:00:00 AM EST [facility] ([facility]) Merlene Sadler, [employer]: [address], [place] [address], Ph. Attender: Merlene Sadler [facility] Medical 12/18/2019 12:00:00 AM EST [facility] ([facility]) Merlene Sadler, [employer] PERFORM[employer]: [address], [place] [address], Ph. Attender: Merlene Sadler [facility] Medical 12/18/2019 12:00:00 AM EST [facility] ([facility]) Merlene Sadler, [employer]IET[employer] PERFORMER: [address], [place] [address], Ph. Attender: Merlene Sadler [facility] Medical 12/18/2019 12:00:00 AM EST [facility] ([facility]) Merlene Sadler, [employer] PERFORM[employer]: [address], [place] [address], Ph. Attender: Merlene Sadler [facility] Medical 12/18/2019 12:00:00 AM EST [facility] ([facility]) Merlene Sadler, [employer] PERFORMER: [address], [place] [address], Ph. Attender: Merlene Sadler [facility] [facility] 12/18/2019 12:00:00 AM EST [facility] ([facility]) Merlene Sadler, VARIETY PERFORMER: [address], [place] [address], Ph. Attender: Merlene Salder [facility] Medical 12/18/2019 12:00:00 AM EST [facility] ([facility]) Merlene Sadler, VARIETY PERFORMER: [address], [place] [address], Ph. Attender: Merlene Sadler [facility] Medical 12/12/2019 12:00:00 AM EST [facility] ([facility]) Merlene Sadler, VARIETY PERFORMER: [address], [place] [address], Ph. Attender: Merlene Sadler [facility] Medical 12/12/2019 12:00:00 AM EST [facility] ([facility]) Merlene Sadler, VARIETY PERFORMER: [address], [place] [address], Ph. Attender: Merlene Sadler [facility] Medical 12/12/2019 12:00:00 AM EST [facility] ([facility]) Merlene Sadler, [facility]: [address], [place] [address], Ph. Attender: Merlene Sadler [facility] Medical 12/12/2019 12:00:00 AM EST [facility] ([facility]) Merlene Sadler, [facility]: [address], [place] [address], Ph. Attender: Merlene Sadler [facility] Medical 12/12/2019 12:00:00 AM EST [facility] ([facility]) Merlene Sadler, VARIETY PERFORMER: [address], [place] [address], Ph. Attender: Merlene Sadler [facility] Medical 12/12/2019 12:00:00 AM EST [facility] ([facility]) Merlene Sadler, VARIETY PERFORMER: [address], [place] [address], Ph. Attender: Merlene Sadler [facility] Medical 12/12/2019 12:00:00 AM EST [facility] ([facility]) Merlene Sadler [facility]: [address], [place] [address], Ph. Attender: Merlene Sadler [facility] Medical 12/12/2019 12:00:00 AM EST [facility] ([facility]) Merlene Sadler, VARIETY PERFORMER: [address], [place] [address], Ph. Attender: Merlene Sadler [facility] Medical 12/12/2019 12:00:00 AM EST [facility] ([facility]) Merlene Sadler [facility]: [address], [place] [address], Ph. Attender: Merlene Sadler [facility] Medical 12/12/2019 12:00:00 AM EST [facility] ([facility]) Merlene Sadler [facility]: [address], [place] [address], Ph. Attender: Merlene Sadler [facility] Medical 12/12/2019 12:00:00 AM EST [facility] ([facility]) Merlene Sadler [facility]: [address], [place] [address], Ph. Attender: Merlene Sadler [facility] Medical 12/12/2019 12:00:00 AM EST [facility] ([facility]) Merlene Sadler, VARIETY PERFORMER: [address], [place] [address], Ph. Attender: Merlene Sadler [facility] Medical 12/12/2019 12:00:00 AM EST [facility] ([facility]) Merlene Sadler, [facility]: [address], [place] [address], Ph. Attender: Merlene Sadler [facility] Medical 12/12/2019 12:00:00 AM EST [facility] ([facility]) Merlene Sadler VARIETY PERFORMER: [address], [place] [address], Ph. Attender: Merlene Sadler [facility] Medical 12/12/2019 12:00:00 AM EST [facility] ([facility]) Merlene Sadler, VARIETY PERFORMER: [address], [place] [address], Ph. Attender: Merlene Sadler [facility] Medical 12/12/2019 12:00:00 AM EST [facility] ([facility]) Merlene Sadler, [facility]: [address], [place] [address], Ph. Attender: Merlene Sadler [facility] Medical 12/12/2019 12:00:00 AM EST [facility] ([facility]) Merlene Sadler [facility]: [address], [place] [address], Ph. Attender: Merlene Sadler [facility] Medical 12/12/2019 12:00:00 AM EST [facility] ([facility]) Merlene Sadler, [facility]: [address], [place] [address], Ph. Attender: Merlene Sadler [facility] Medical 12/12/2019 12:00:00 AM EST [facility] ([facility]) Merlene Sadler, [facility]: [address], [place] [address], Ph. Attender: Merlene Sadler [facility] Medical 12/12/2019 12:00:00 AM EST [facility] ([facility]) Merlene Sadler, VARIETY PERFORMER: [address], [place] [address], Ph. Attender: Merlene Sadler [facility] Medical 12/12/2019 12:00:00 AM EST [facility] ([facility]) Merlene Sadler, VARIETY PERFORMER: [address], [place] [address], Ph. Attender: Merlene Sadler [facility] Medical 12/12/2019 12:00:00 AM EST [facility] ([facility]) Merlene Sadler, VARIETY PERFORMER: [address], [place] [address], Ph. Attender: Merlene Sadler [facility] Medical 12/12/2019 12:00:00 AM EST [facility] ([facility]) Merlene Sadler, VARIETY PERFORMER: [address], [place] [address], Ph. Attender: Merlene Sadler [facility] Medical 12/12/2019 12:00:00 AM EST [facility] ([facility]) Merlene Sadler, VARIETY PERFORMER: [address], [place] [address], Ph. Attender: Merlene Sadler [facility] Medical 12/12/2019 12:00:00 AM EST [facility] ([facility]) Merlene Sadler, VARIETY PERFORMER: [address], [place] [address], Ph. Attender: Merlene Sadler [facility] Medical 12/12/2019 12:00:00 AM EST [facility] ([facility]) Merlene Sadler, VARIETY PERFORMER: [address], [place] [address], Ph. Attender: Merlene Sadler [facility] Medical 12/12/2019 12:00:00 AM EST [facility] ([facility]) Merlene Sadler, VARIETY PERFORMER: [address], [place] [address], Ph. Attender: Merlene Sadler [facility] Medical 12/12/2019 12:00:00 AM EST [facility] ([facility]) Merlene Sadler, VARIETY PERFORMER: [address], [place] [address], Ph. Attender: Merlene Sadler [facility] Medical 12/12/2019 12:00:00 AM EST [facility] ([facility]) Merlene Sadler, VARIETY PERFORMER: [address], [place] [address], Ph. Attender: Merlene Sadler [facility] Medical 12/12/2019 12:00:00 AM EST [facility] ([facility]) Merlene Sadler, VARIETY PERFORMER: [address], [place] [address], Ph. Attender: Merlene Sadler [facility] Medical 12/12/2019 12:00:00 AM EST [facility] ([facility]) Merlene Sadler, VARIETY PERFORMER: [address], [place] [address], Ph. Attender: Merlene Sadler [facility] Medical 12/12/2019 12:00:00 AM EST [facility] ([facility]) Merlene Sadler, VARIETY PERFORMER: [address], [place] [address], Ph. Attender: Merlene Sadler [facility] Medical 12/12/2019 12:00:00 AM EST [facility] ([facility]) Merlene Sadler, VARIETY PERFORMER: [address], [place] [address], Ph. Attender: Merlene Sadler [facility] Medical 12/12/2019 12:00:00 AM EST [facility] ([facility]) Merlene Sadler VARIETY PERFORMER: [address], [place] [address], Ph. Attender: Merlene Sadler [facility] Medical 12/12/2019 12:00:00 AM EST [facility] ([facility]) Merlene Sadler, VARIETY PERFORMER: [address], [place] [address], Ph. Attender: Merlene Sadler [facility] Medical 12/12/2019 12:00:00 AM EST [facility] ([facility]) Merlene Sadler VARIETY PERFORMER: [address], [place] [address], Ph. Attender: Merlene Sadler [facility] Medical 12/12/2019 12:00:00 AM EST [facility] ([facility]) Merlene Sadler, VARIETY PERFORMER: [address], [place] [address], Ph. Attender: Merlene Sadler [facility] Medical 12/12/2019 12:00:00 AM EST [facility] ([facility]) Terry Quiroga RPA-C: [address], [place] [address], Ph. Attender: TERRY QUIROGA RPA-C [facility] Medical 12/11/2019 12:00:00 AM EST [facility] ([facility]) Terry Quiroga RPA-C: [address], [place] [address], Ph. Attender: TERRY QUIROGA RPA-C [facility] Medical 12/11/2019 12:00:00 AM EST [facility] ([facility]) Terry Quiroga RPA-C: [address], [place] [address], Ph. Attender: TERRY QUIROGA RPA-C [facility] Medical 12/11/2019 12:00:00 AM EST [facility] ([facility]) Terry Quiroga RPA-C: [address], [place] [address], Ph. Attender: TERRY QUIROGA RPA-C [facility] Medical 12/11/2019 12:00:00 AM EST [facility] ([facility]) Terry Quiroga, RPA-C: [address], [place] [address], Ph. Attender: TERRY QUIROGA RPA-C [facility] Medical 12/11/2019 12:00:00 AM EST [facility] ([facility]) Terry Quiroga RPA-C: [address], [place] [address], Ph. Attender: TERRY QUIROGA RPA-C [facility] Medical 12/11/2019 12:00:00 AM EST [facility] ([facility]) Terry Quiroga RPA-C: [address], [place] [address], Ph. Attender: TERRY QUIROGA RPA-C [facility] Medical 12/11/2019 12:00:00 AM EST [facility] ([facility]) Terry Quiroga RPA-C: [address], [place] [address], Ph. Attender: TERRY QUIROGA RPA-C [facility] Medical 12/11/2019 12:00:00 AM EST [facility] ([facility]) Terry Quiroga RPA-C: [address], [place] [address], Ph. Attender: TERRY QUIROGA RPA-C [facility] Medical 12/11/2019 12:00:00 AM EST [facility] ([facility]) Terry Quiroga RPA-C: [address], [place] [address], Ph. Attender: TERRY QUIROGA RPA-C [facility] Medical 12/11/2019 12:00:00 AM EST [facility] ([facility]) Terry Quiroga RPA-C: [address], [place] [address], Ph. Attender: TERRY QUIROGA RPA-C [facility] Medical 12/11/2019 12:00:00 AM EST [facility] ([facility]) Terry Quiroga RPA-C: [address], [place] [address], Ph. Attender: TERRY QUIROGA RPA-C [facility] Medical 12/11/2019 12:00:00 AM EST [facility] ([facility]) Terry Quiroga RPA-C: [address], [place] [address], Ph. Attender: TERRY QUIROGA RPA-C [facility] Medical 12/11/2019 12:00:00 AM EST [facility] ([facility]) Terry Quiroga, RPA-C: [address], [place] [address], Ph. Attender: TERRY QUIROGA RPA-C [facility] Medical 12/11/2019 12:00:00 AM EST [facility] ([facility]) Terry Quiroga, RPA-C: [address], [place] [address], Ph. Attender: TERRY QUIROGA RPA-C [facility] Medical 12/11/2019 12:00:00 AM EST [facility] ([facility]) Terry Quiroga RPA-C: [address], [place] [address], Ph. Attender: TERRY QUIROGA RPA-C [facility] Medical 12/11/2019 12:00:00 AM EST [facility] ([facility]) Terry Quiroga, RPA-C: [address], [place] [address], Ph. Attender: TERRY QUIROGA RPA-C [facility] Medical 12/11/2019 12:00:00 AM EST [facility] ([facility]) Terry Quiroga RPA-C: [address], [place] [address], Ph. Attender: TERRY QUIROGA RPA-C [facility] Medical 12/11/2019 12:00:00 AM EST [facility] ([facility]) Terry Quiroga RPA-C: [address], [place] [address], Ph. Attender: TERRY QUIROGA RPA-C [facility] Medical 12/11/2019 12:00:00 AM EST [facility] ([facility]) Terry Quiroga RPA-C: [address], [place] [address], Ph. Attender: TERRY QUIROGA RPA-C [facility] Medical 12/11/2019 12:00:00 AM EST [facility] ([facility]) Terry Quiroga RPA-C: [address], [place] [address], Ph. Attender: TERRY QUIROGA RPA-C [facility] Medical 12/11/2019 12:00:00 AM EST [facility] ([facility]) Terry Quiroga, RPA-C: [address], [place] [address], Ph. Attender: TERRY QUIROGA RPA-C [facility] Medical 12/11/2019 12:00:00 AM EST [facility] ([facility]) Terry Quiroga, RPA-C: [address], [place] [address], Ph. Attender: TERRY QUIROGA RPA-C [facility] Medical 12/11/2019 12:00:00 AM EST [facility] ([facility]) Terry Quiroga RPA-C: [address], [place] [address], Ph. Attender: TERRY QUIROGA RPA-C [facility] Medical 12/11/2019 12:00:00 AM EST [facility] ([facility]) Terry Quiroga RPA-C: [address], [place] [address], Ph. Attender: TERRY QUIROGA RPA-C [facility] Medical 12/11/2019 12:00:00 AM EST [facility] ([facility]) Terry Quiroga RPA-C: [address], [place] [address], Ph. Attender: TERRY QUIROGA RPA-C [facility] Medical 12/11/2019 12:00:00 AM EST [facility] ([facility]) Terry Quiroga RPA-C: [address], [place] [address], Ph. Attender: TERRY QUIROGA RPA-C [facility] Medical 12/11/2019 12:00:00 AM EST [facility] ([facility]) Terry Quiroga, RPA-C: [address], [place] [address], Ph. Attender: TERRY QUIROGA RPA-C [facility] Medical 12/11/2019 12:00:00 AM EST [facility] ([facility]) Terry Quiroga RPA-C: [address], [place] [address], Ph. Attender: TERRY QUIROGA RPA-C [facility] Medical 12/11/2019 12:00:00 AM EST [facility] ([facility]) Terry Quiroga RPA-C: [address], [place] [address], Ph. Attender: TERRY QUIROGA RPA-C [facility] Medical 12/11/2019 12:00:00 AM EST [facility] ([facility]) Terry Quiroga RPA-C: [address], [place] [address], Ph. Attender: TERRY QUIROGA RPA-C [facility] Medical 12/11/2019 12:00:00 AM EST [facility] ([facility]) Terry Quiroga RPA-C: [address], [place] [address], Ph. Attender: TERRY QUIROGA RPA-C [facility] Medical 12/11/2019 12:00:00 AM EST [facility] ([facility]) Terry Quiroga RPA-C: [address], [place] [address], Ph. Attender: TERRY QUIROGA RPA-C [facility] Medical 12/11/2019 12:00:00 AM EST [facility] ([facility]) Terry Quiroga RPA-C: [address], [place] [address], Ph. Attender: TERRY QUIROGA RPA-C [facility] Medical 12/11/2019 12:00:00 AM EST [facility] ([facility]) Terry Quiroga RPA-C: [address], [place] [address], Ph. Attender: TERRY QUIROGA RPA-C [facility] Medical 12/11/2019 12:00:00 AM EST [facility] ([facility]) Terry Quiroga RPA-C: [address], [place] [address], Ph. Attender: TERRY QUIROGA RPA-C [facility] Medical 12/11/2019 12:00:00 AM EST [facility] ([facility]) Terry Quiroga RPA-C: [address], [place] [address], Ph. Attender: TERRY QUIROGA RPA-C [facility] Medical 12/11/2019 12:00:00 AM EST [facility] ([facility]) Terry Quiroga RPA-C: [address], [place] [address], Ph. Attender: TERRY QUIROGA RPA-C [facility] Medical 12/11/2019 12:00:00 AM EST [facility] ([facility]) Merlene Sadler [facility]: [address], [place] [address], Ph. Attender: Merlene Sadler [facility] Medical 12/03/2019 12:00:00 AM EDT [facility] ([facility]) Merlene Sadler, [facility]: [address], [place] [address], Ph. Attender: Merlene Sadler [facility] Medical 12/03/2019 12:00:00 AM EDT [facility] ([facility]) Merlene Sadler, [facility]: [address], [place] [address], Ph. Attender: Merlene Sadler [facility] Medical 12/03/2019 12:00:00 AM EDT [facility] ([facility]) Merlene Sadler, VARIETY PERFORMER: [address], [place] [address], Ph. Attender: Merlene Sadler [facility] Medical 12/03/2019 12:00:00 AM EDT [facility] ([facility]) Merlene Sadler, VARIETY PERFORMER: [address], [place] [address], Ph. Attender: Merlene Sadler [facility] Medical 12/03/2019 12:00:00 AM EDT [facility] ([facility]) Merlene Sadler, [facility]: [address], [place] [address], Ph. Attender: Merlene Sadler [facility] Medical 12/03/2019 12:00:00 AM EDT [facility] ([facility]) Merlene Sadler [facility]: [address], [place] [address], Ph. Attender: Merlene Sadler [facility] Medical 12/03/2019 12:00:00 AM EDT [facility] ([facility]) Merlene Sadler, [facility]: [address], [place] [address], Ph. Attender: Merlene Sadler [facility] Medical 12/03/2019 12:00:00 AM EDT [facility] ([facility]) Merlene Sadler, [facility]: [address], [place] [address], Ph. Attender: Merlene Sadler [facility] Medical 12/03/2019 12:00:00 AM EDT [facility] ([facility]) Merlene Sadler, [facility]: [address], [place] [address], Ph. Attender: Merlene Sadler [facility] Medical 12/03/2019 12:00:00 AM EDT [facility] ([facility]) Merlene Sadler, [facility]: [address], [place] [address], Ph. Attender: Merlene Sadler [facility] Medical 12/03/2019 12:00:00 AM EDT [facility] ([facility]) Merlene Sadler, [facility]: [address], [place] [address], Ph. Attender: Merlene Sadler [facility] Medical 12/03/2019 12:00:00 AM EDT [place] ([facility]) Merlene Sadler [facility]: [address], [place] [address], Ph. Attender: Merlene Sadler [facility] Medical 12/03/2019 12:00:00 AM EDT [facility] ([facility]) Merlene Sadler, [facility]: [address], [place] [address], Ph. Attender: Merlene Sadler [facility] Medical 12/03/2019 12:00:00 AM EDT [facility] ([facility]) Merlene Sadler, [facility]: [address], [place] [address], Ph. Attender: Merlene Sadler [facility] Medical 12/03/2019 12:00:00 AM EDT [facility] ([facility]) Merlene Sadler, [employer]: [address], [place] [address], Ph. Attender: Merlene Sadler [facility] Medical 12/03/2019 12:00:00 AM EDT [facility] ([facility]) Merlene Sadler, [facility]: [address], [place] [address], Ph. Attender: Merlene Sadler [facility] Medical 12/03/2019 12:00:00 AM EDT [facility] ([facility]) Merlene Sadler, [facility]: [address], [place] [address], Ph. Attender: Merlene Sadler [facility] Medical 12/03/2019 12:00:00 AM EDT [facility] ([facility]) Merlene Sadler [facility]: [address], [place] [address], Ph. Attender: Merlene Sadler [facility] Medical 12/03/2019 12:00:00 AM EDT [facility] ([facility]) Merlene Sadler, [facility]: [address], [place] [address], Ph. Attender: Merlene Sadler [facility] Medical 12/03/2019 12:00:00 AM EDT [facility] ([facility]) Merlene Sadler, [employer]: [address], [place] [address], Ph. Attender: Merlene Sadler [facility] Medical 12/03/2019 12:00:00 AM EDT [facility] ([facility]) Merlene Sadler, [employer] PER[employer]: [address], [place] [address], Ph. Attender: Merlene Sadler [facility] [facility] Medical 12/03/2019 12:00:00 AM EDT [facility] ([facility]) Merlene Sadler, [facility]: [address], [place] [address], Ph. Attender: Merlene Sadler [facility] Medical 12/03/2019 12:00:00 AM EDT [facility] ([facility]) Merlene Sadler, [employer]: [address], [place] [address], Ph. Attender: Merlene Sadler [facility] Medical 12/03/2019 12:00:00 AM EDT [facility] ([facility]) Merlene Sadler, VARIETY PERFORMER: [address], [place] [address], Ph. Attender: Merlene Sadler [facility] Medical 12/03/2019 12:00:00 AM EDT [facility] ([facility]) Merlene Sadler, [facility]: [address], [place] [address], Ph. Attender: Merlene Sadler [facility] Medical 12/03/2019 12:00:00 AM EDT [facility] ([facility]) Merlene Sadler, VARIETY PERFORMER: [address], [place] [address], Ph. Attender: Merlene Sadler [facility] Medical 12/03/2019 12:00:00 AM EDT [facility] ([facility]) Merlene Sadler, VARIETY PERFORMER: [address], [place] [address], Ph. Attender: Merlene Sadler [facility] Medical 12/03/2019 12:00:00 AM EDT [facility] ([facility]) Merlene Sadler, VARIETY PERFORMER: [address], [place] [address], Ph. Attender: Merlene Sadler [facility] Medical 12/03/2019 12:00:00 AM EDT [facility] ([facility]) Merlene Sadler, VARIETY PERFORMER: [address], [place] [address], Ph. Attender: Merlene Sadler [facility] Medical 12/03/2019 12:00:00 AM EDT [facility] ([facility]) Merlene Sadler, VARIETY PERFORMER: [address], [place] [address], Ph. Attender: Merlene Sadler [facility] Medical 12/03/2019 12:00:00 AM EDT [facility] ([facility]) Merlene Sadler, VARIETY PERFORMER: [address], [place] [address], Ph. Attender: Merleen Sadler [facility] Medical 12/03/2019 12:00:00 AM EDT [facility] ([facility]) Merlene Sadler, VARIETY PERFORMER: [address], [place] [address], Ph. Attender: Merlene Sadler [facility] Medical 12/03/2019 12:00:00 AM EDT [facility] ([facility]) Merlene Sadler, VARIETY PERFORMER: [address], [place] [address], Ph. Attender: Merlene Sadler [facility] Medical 12/03/2019 12:00:00 AM EDT [facility] ([facility]) Merlene Sadler, VARIETY PERFORMER: [address], [place] [address], Ph. Attender: Merlene Sadler [facility] Medical 12/03/2019 12:00:00 AM EDT [facility] ([facility]) Merlene Sadler VARIETY PERFORMER: [address], [place] [address], Ph. Attender: Merlene Sadler [facility] Medical 12/03/2019 12:00:00 AM EDT [facility] ([facility]) Merlene Sadler, VARIETY PERFORMER: [address], [place] [address], Ph. Attender: Merlene Sadler [facility] Medical 12/03/2019 12:00:00 AM EDT [facility] ([facility]) Merlene Sadler VARIETY PERFORMER: [address], [place] [address], Ph. Attender: Merlene Sadler [facility] Medical 12/03/2019 12:00:00 AM EDT [facility] ([facility]) Merlene Sadler, VARIETY PERFORMER: [address], [place] [address], Ph. Attender: Merlene Sadler [facility] Medical 12/03/2019 12:00:00 AM EDT [facility] ([facility]) Merlene Sadler, VARIETY PERFORMER: [address], [place] [address], Ph. Attender: Merlene Sadler [facility] Medical 11/26/2019 12:00:00 AM EDT [facility] ([facility]) Merlene Sadler, VARIETY PERFORMER: [address], [place] [address], Ph. Attender: Merlene Sadler [facility] Medical 11/26/2019 12:00:00 AM EDT [facility] ([facility]) Merlene Sadler, VARIETY PERFORMER: [address], [place] [address], Ph. Attender: Merlene Sadler [facility] Medical 11/26/2019 12:00:00 AM EDT [facility] ([facility]) Merlene Sadler, VARIETY PERFORMER: [address], [place] [address], Ph. Attender: Merlene Sadler [facility] Medical 11/26/2019 12:00:00 AM EDT [facility] ([facility]) Merlene Sadler, VARIETY PERFORMER: [address], [place] [address], Ph. Attender: Merlene Sadler [facility] Medical 11/26/2019 12:00:00 AM EDT [facility] ([facility]) Merlene Sadler, VARIETY PERFORMER: [address], [place] [address], Ph. Attender: Merlene Sadler [facility] Medical 11/26/2019 12:00:00 AM EDT [facility] ([facility]) Merlene Sadler, [facility]: [address], [place] [address], Ph. Attender: Merlene Sadler [facility] Medical 11/26/2019 12:00:00 AM EDT [facility] ([facility]) Merlene Sadler, VARIETY PERFORMER: [address], [place] [address], Ph. Attender: Merlene Sadler [facility] Medical 11/26/2019 12:00:00 AM EDT [facility] ([facility]) Merlene Sadler, [facility]: [address], [place] [address], Ph. Attender: Merlene Sadler [facility] Medical 11/26/2019 12:00:00 AM EDT [facility] ([facility]) Merlene Sadler, [facility]: [address], [place] [address], Ph. Attender: Merlene Sadler [facility] Medical 11/26/2019 12:00:00 AM EDT [facility] ([facility]) Merlene Sadler, [facility]: [address], [place] [address], Ph. Attender: Merlene Sadler [facility] Medical 11/26/2019 12:00:00 AM EDT [facility] ([facility]) Merlene Sadler, [facility]: [address], [place] [address], Ph. Attender: Merlene Sadler [facility] Medical 11/26/2019 12:00:00 AM EDT [facility] ([facility]) Merlene Sadler VARIETY PERFORMER: [address], [place] [address], Ph. Attender: Merlene Sadler [facility] Medical 11/26/2019 12:00:00 AM EDT [facility] ([facility]) Merlene Sadler, VARIETY PERFORMER: [address], [place] [address], Ph. Attender: Merlene Sadler [facility] Medical 11/26/2019 12:00:00 AM EDT [facility] ([facility]) Merlene Sadler, VARIETY PERFORMER: [address], [place] [address], Ph. Attender: Merlene Sadler [facility] Medical 11/26/2019 12:00:00 AM EDT [facility] ([facility]) Merlene aSdler, VARIETY PERFORMER: [address], [place] [address], Ph. Attender: Merlene Sadler [facility] Medical 11/26/2019 12:00:00 AM EDT [facility] ([facility]) Merlene Sadler, VARIETY PERFORMER: [address], [place] [address], Ph. Attender: Merlene Sadler [facility] Medical 11/26/2019 12:00:00 AM EDT [facility] ([facility]) Merlene Sadler, VARIETY PERFORMER: [address], [place] [address], Ph. Attender: Merlene Sadler [facility] Medical 11/26/2019 12:00:00 AM EDT [facility] ([facility]) Merlene Sadler, VARIETY PERFORMER: [address], [place] [address], Ph. Attender: Merlene Sadler [facility] Medical 11/26/2019 12:00:00 AM EDT [facility] ([facility]) Merlene Sadler, VARIETY PERFORMER: [address], [place] [address], Ph. Attender: Merlene Sadler [facility] Medical 11/26/2019 12:00:00 AM EDT [facility] ([facility]) Merlene Sadler, VARIETY PERFORMER: [address], [place] [address], Ph. Attender: Merlene Sadler [facility] Medical 11/26/2019 12:00:00 AM EDT [facility] ([facility]) Merlene Sadler, VARIETY PERFORMER: [address], [place] [address], Ph. Attender: Merlene Sadler [facility] Medical 11/26/2019 12:00:00 AM EDT [facility] ([facility]) Merlene Sadler, VARIETY PERFORMER: [address], [place] [address], Ph. Attender: Merlene Sadler [facility] Medical 11/26/2019 12:00:00 AM EDT [facility] ([facility]) Merlene Sadler, VARIETY PERFORMER: [address], [place] [address], Ph. Attender: Merlene Sadler [facility] Medical 11/26/2019 12:00:00 AM EDT [facility] ([facility]) Merlene Sadler, [facility]: [address], [place] [address], Ph. Attender: Merlene Sadler [facility] Medical 11/26/2019 12:00:00 AM EDT [facility] ([facility]) Merlene Sadler VARIETY PERFORMER: [address], [place] [address], Ph. Attender: Merlene Sadler [facility] Medical 11/26/2019 12:00:00 AM EDT [facility] ([facility]) Merlene Sadler, [facility]: [address], [place] [address], Ph. Attender: Merlene Sadler [facility] Medical 11/26/2019 12:00:00 AM EDT [facility] ([facility]) Merlene Sadler, [facility]: [address], [place] [address], Ph. Attender: Merlene Sadler [facility] Medical 11/26/2019 12:00:00 AM EDT [facility] ([facility]) Merlene Sadler [facility]: [address], [place] [address], Ph. Attender: Merlene Sadler [facility] Medical 11/26/2019 12:00:00 AM EDT [facility] ([facility]) Merlene Sadler, [facility]: [address], [place] [address], Ph. Attender: Merlene Sadler [facility] Medical 11/26/2019 12:00:00 AM EDT [facility] ([facility]) Merlene Sadler, VARIETY PERFORMER: [address], [place] [address], Ph. Attender: Merlene Sadler [facility] Medical 11/26/2019 12:00:00 AM EDT [facility] ([facility]) Merlene Sadler, VARIETY PERFORMER: [address], [place] [address], Ph. Attender: Merlene Sadler [facility] Medical 11/26/2019 12:00:00 AM EDT [facility] ([facility]) Merlene Sadler, VARIETY PERFORMER: [address], [place] [address], Ph. Attender: Merlene Sadler [facility] Medical 11/26/2019 12:00:00 AM EDT [facility] ([facility]) Merlene Sadler, VARIETY PERFORMER: [address], [place] [address], Ph. Attender: Merlene Sadler [facility] Medical 11/26/2019 12:00:00 AM EDT [facility] ([facility]) Merlene Sadler, [facility]: [address], [place] [address], Ph. Attender: Merlene Sadler [facility] Medical 11/26/2019 12:00:00 AM EDT [facility] ([facility]) Merlene Sadler, VARIETY PERFORMER: [address], [place] [address], Ph. Attender: Merlene Sadler [facility] Medical 11/26/2019 12:00:00 AM EDT [facility] ([facility]) Merlene Sadler [facility]: [address], [place] [address], Ph. Attender: Merlene Sadler [facility] Medical 11/26/2019 12:00:00 AM EDT [facility] ([facility]) Merlene Sadler, [facility]: [address], [place] [address], Ph. Attender: Merlene Sadler [facility] Medical 11/26/2019 12:00:00 AM EDT [facility] ([facility]) Merlene Sadler, [facility]: [address], [place] [address], Ph. Attender: Merlene Sadler [facility] Medical 11/26/2019 12:00:00 AM EDT [facility] ([facility]) Merlene Sadler, [facility]: [address], [place] [address], Ph. Attender: Merlene Sadler [facility] Medical 11/26/2019 12:00:00 AM EDT [facility] ([facility]) Outpatient Attender: TERRY QUIROGA [facility] 11/13/2019 08:31:03 AM EDT [facility] Outpatient Attender: TERRY QUIROGA [facility] 10/28/2019 04:06:01 PM EDT [facility] Outpatient Attender: TERRY QUIROGA [facility] 10/28/2019 08:58:02 AM EDT [facility] Outpatient Attender: TERRY QUIROGA [facility] 10/28/2019 08:58:02 AM EDT [facility] Outpatient Attender: TERRY QUIROGA [facility] 2019 08:16:01 AM EDT [facility] Outpatient Attender: TERRY QUIROGA [facility] 10/14/2019 04:14:00 PM EDT [facility] Outpatient Attender: TERRY QUIROGA [facility] 10/14/2019 09:02:02 AM EDT [facility] Outpatient Attender: TERRY QUIROGA [facility] 10/10/2019 02:32:00 PM EDT [facility] Outpatient Attender: TERRY QUIROGA [facility] 10/10/2019 02:32:00 PM EDT [facility] Outpatient Attender: TERRY QUIROGA [facility] 10/06/2019 03:39:01 PM EDT [facility] Outpatient Attender: TERRY QUIROGA [facility] 10/06/2019 08:14:02 AM EDT [facility] Outpatient Attender: TERRY QUIROGA [facility] 09/30/2019 10:06:04 AM EDT [facility] Immunizations Vaccine Date Status Description Data Source(s) COVID-19, mRNA, LNP-S, PF, 30 mcg/0.3 mL dose 08/12/2020 11: 30:57 AM EDT completed .3 mL [facility]) COVID-19, mRNA, LNP-S, PF, 30 mcg/0.3 mL dose 08/12/2020 11: 30:57 AM EDT completed .3 mL [facility]) COVID-19, mRNA, LNP-S, PF, 30 mcg/0.3 mL dose 08/12/2020 11: 30:57 AM EDT completed .3 mL [facility]) COVID-19, mRNA, LNP-S, PF, 30 mcg/0.3 mL dose 08/12/2020 11: 30:57 AM EDT completed .3 mL [facility]) COVID-19, mRNA, LNP-S, PF, 30 mcg/0.3 mL dose 08/12/2020 11: 30:57 AM EDT completed .3 mL [facility]) COVID-19, mRNA, LNP-S, PF, 30 mcg/0.3 mL dose 08/12/2020 11: 30:57 AM EDT completed .3 mL [facility] ([facility]) COVID-19, mRNA, LNP-S, PF, 30 mcg/0.3 mL dose 08/12/2020 11: 30:57 AM EDT completed .3 mL [facility] ([facility]) COVID-19, mRNA, LNP-S, PF, 30 mcg/0.3 mL dose 08/12/2020 11: 30:57 AM EDT completed .3 mL [facility] ([facility]) COVID-19, mRNA, LNP-S, PF, 30 mcg/0.3 mL dose 08/12/2020 11: 30:57 AM EDT completed .3 mL [facility] ([facility]) COVID-19, mRNA, LNP-S, PF, 30 mcg/0.3 mL dose 08/12/2020 11: 30:57 AM EDT completed .3 mL [facility] ([facility]) COVID-19, mRNA, LNP-S, PF, 30 mcg/0.3 mL dose 08/12/2020 11: 30:57 AM EDT completed .3 mL [facility] ([facility]) COVID-19 VACCINE Pfizer 08/12/2020 12:00:00 AM EDT completed [employer] Vaccine Series Complete: YESThis Data wa s Submitted to [facility] Via [employer]. COVID-19, mRNA, LNP-S, PF, 30 mcg/0.3 mL dose 07/22/2020 06: 41:28 PM EDT completed .3 mL [facility] ([facility]) COVID-19, mRNA, LNP-S, PF, 30 mcg/0.3 mL dose 07/22/2020 06: 41:28 PM EDT completed .3 mL [facility] ([facility]) COVID-19, mRNA, LNP-S, PF, 30 mcg/0.3 mL dose 07/22/2020 06: 41:28 PM EDT completed .3 mL [facility] ([facility]) COVID-19, mRNA, LNP-S, PF, 30 mcg/0.3 mL dose 07/22/2020 06: 41:28 PM EDT completed .3 mL [facility] ([facility]) COVID-19, mRNA, LNP-S, PF, 30 mcg/0.3 mL dose 07/22/2020 06: 41:28 PM EDT completed .3 mL [facility] ([facility]) COVID-19, mRNA, LNP-S, PF, 30 mcg/0.3 mL dose 07/22/2020 06: 41:28 PM EDT completed .3 mL [facility] ([facility]) COVID-19, mRNA, LNP-S, PF, 30 mcg/0.3 mL dose 07/22/2020 06: 41:28 PM EDT completed .3 mL [facility] ([facility]) COVID-19, mRNA, LNP-S, PF, 30 mcg/0.3 mL dose 07/22/2020 06: 41:28 PM EDT completed .3 mL [facility] ([facility]) COVID-19, mRNA, LNP-S, PF, 30 mcg/0.3 mL dose 07/22/2020 06: 41:28 PM EDT completed .3 mL [facility] ([facility]) COVID-19, mRNA, LNP-S, PF, 30 mcg/0.3 mL dose 07/22/2020 06: 41:28 PM EDT completed .3 mL [facility] ([facility]) COVID-19, mRNA, LNP-S, PF, 30 mcg/0.3 mL dose 07/22/2020 06: 41:28 PM EDT completed .3 mL [facility] ([facility]) COVID-19, mRNA, LNP-S, PF, 30 mcg/0.3 mL dose 07/22/2020 06: 41:28 PM EDT completed .3 mL [facility] ([facility]) COVID-19, mRNA, LNP-S, PF, 30 mcg/0.3 mL dose 07/22/2020 06: 41:28 PM EDT completed .3 mL [facility] ([facility]) COVID-19, mRNA, LNP-S, PF, 30 mcg/0.3 mL dose 07/22/2020 06: 41:28 PM EDT completed .3 mL [facility] ([facility]) COVID-19 VACCINE Pfizer 07/22/2020 12:00:00 AM EDT completed [employer] Vaccine Series Complete: NOThis Data was Submitted to [facility] Via [employer]. Medications Medication Brand Name Start Date Product Form Dose Route Admi nistrative Instructions Pharmacy Instructions Status Indications Reaction Description Data Source(s) Naproxen 250 MG Oral Tablet Naproxen 05/20/2020 12:00:00 AM EDT ORAL active [facility] ([facility], ) Amoxicillin 875 MG / Clavulanate 125 MG Oral Tablet amoxicillin 875 mg-potassium clavulanate 125 mg tablet TAKE 1 TABLET BY MOUTH TWICE DAILY amoxicillin 875 mg- potassium clavulanate 125 mg tablet TAKE 1 TABLET BY MOUTH TWICE DAILY 04/02/2020 12:00:00 AM EST completed amoxicillin 875 MG / clavulanate 125 MG Oral Tablet [facility] ([facility]) Amoxicillin 875 MG / Clavulanate 125 MG Oral Tablet amoxicillin 875 mg-potassium clavulanate 125 mg tablet TAKE 1 TABLET BY MOUTH TWICE DAILY amoxicillin 875 mg- potassium clavulanate 125 mg tablet TAKE 1 TABLET BY MOUTH TWICE DAILY 04/02/2020 12:00:00 AM EST completed amoxicillin 875 MG / clavulanate 125 MG Oral Tablet [facility] ([facility]) Amoxicillin 875 MG / Clavulanate 125 MG Oral Tablet amoxicillin 875 mg-potassium clavulanate 125 mg tablet TAKE 1 TABLET BY MOUTH TWICE DAILY amoxicillin 875 mg- potassium clavulanate 125 mg tablet TAKE 1 TABLET BY MOUTH TWICE DAILY 04/02/2020 12:00:00 AM EST completed amoxicillin 875 MG / clavulanate 125 MG Oral Tablet [facility] ([facility]) Amoxicillin 875 MG / Clavulanate 125 MG Oral Tablet amoxicillin 875 mg-potassium clavulanate 125 mg tablet TAKE 1 TABLET BY MOUTH TWICE DAILY amoxicillin 875 mg- potassium clavulanate 125 mg tablet TAKE 1 TABLET BY MOUTH TWICE DAILY 04/02/2020 12:00:00 AM EST completed amoxicillin 875 MG / clavulanate 125 MG Oral Tablet [facility] ([facility]) Amoxicillin 875 MG / Clavulanate 125 MG Oral Tablet amoxicillin 875 mg-potassium clavulanate 125 mg tablet TAKE 1 TABLET BY MOUTH TWICE DAILY amoxicillin 875 mg- potassium clavulanate 125 mg tablet TAKE 1 TABLET BY MOUTH TWICE DAILY 04/02/2020 12:00:00 AM EST completed amoxicillin 875 MG / clavulanate 125 MG Oral Tablet [facility] ([facility]) Amoxicillin 875 MG / Clavulanate 125 MG Oral Tablet amoxicillin 875 mg-potassium clavulanate 125 mg tablet TAKE 1 TABLET BY MOUTH TWICE DAILY amoxicillin 875 mg- potassium clavulanate 125 mg tablet TAKE 1 TABLET BY MOUTH TWICE DAILY 04/02/2020 12:00:00 AM EST completed amoxicillin 875 MG / clavulanate 125 MG Oral Tablet [facility] ([facility]) Amoxicillin 875 MG / Clavulanate 125 MG Oral Tablet amoxicillin 875 mg-potassium clavulanate 125 mg tablet TAKE 1 TABLET BY MOUTH TWICE DAILY amoxicillin 875 mg- potassium clavulanate 125 mg tablet TAKE 1 TABLET BY MOUTH TWICE DAILY 04/02/2020 12:00:00 AM EST completed amoxicillin 875 MG / clavulanate 125 MG Oral Tablet [facility] ([facility]) Amoxicillin 875 MG / Clavulanate 125 MG Oral Tablet amoxicillin 875 mg-potassium clavulanate 125 mg tablet TAKE 1 TABLET BY MOUTH TWICE DAILY amoxicillin 875 mg- potassium clavulanate 125 mg tablet TAKE 1 TABLET BY MOUTH TWICE DAILY 04/02/2020 12:00:00 AM EST completed amoxicillin 875 MG / clavulanate 125 MG Oral Tablet [facility] ([facility]) Amoxicillin 875 MG / Clavulanate 125 MG Oral Tablet amoxicillin 875 mg-potassium clavulanate 125 mg tablet TAKE 1 TABLET BY MOUTH TWICE DAILY amoxicillin 875 mg- potassium clavulanate 125 mg tablet TAKE 1 TABLET BY MOUTH TWICE DAILY 04/02/2020 12:00:00 AM EST completed amoxicillin 875 MG / clavulanate 125 MG Oral Tablet [facility] ([facility]) Amoxicillin 875 MG / Clavulanate 125 MG Oral Tablet amoxicillin 875 mg-potassium clavulanate 125 mg tablet TAKE 1 TABLET BY MOUTH TWICE DAILY amoxicillin 875 mg- potassium clavulanate 125 mg tablet TAKE 1 TABLET BY MOUTH TWICE DAILY 04/02/2020 12:00:00 AM EST completed amoxicillin 875 MG / clavulanate 125 MG Oral Tablet [facility] ([facility]) Amoxicillin 875 MG / Clavulanate 125 MG Oral Tablet amoxicillin 875 mg-potassium clavulanate 125 mg tablet TAKE 1 TABLET BY MOUTH TWICE DAILY amoxicillin 875 mg- potassium clavulanate 125 mg tablet TAKE 1 TABLET BY MOUTH TWICE DAILY 04/02/2020 12:00:00 AM EST completed amoxicillin 875 MG / clavulanate 125 MG Oral Tablet [facility] ([facility]) Amoxicillin 875 MG / Clavulanate 125 MG Oral Tablet amoxicillin 875 mg-potassium clavulanate 125 mg tablet TAKE 1 TABLET BY MOUTH TWICE DAILY amoxicillin 875 mg- potassium clavulanate 125 mg tablet TAKE 1 TABLET BY MOUTH TWICE DAILY 04/02/2020 12:00:00 AM EST completed amoxicillin 875 MG / clavulanate 125 MG Oral Tablet HILDA ([facility]) Amoxicillin 875 MG / Clavulanate 125 MG Oral Tablet amoxicillin 875 mg-potassium clavulanate 125 mg tablet TAKE 1 TABLET BY MOUTH TWICE DAILY amoxicillin 875 mg- potassium clavulanate 125 mg tablet TAKE 1 TABLET BY MOUTH TWICE DAILY 04/02/2020 12:00:00 AM EST completed amoxicillin 875 MG / clavulanate 125 MG Oral Tablet HILDA ([facility]) Amoxicillin 875 MG / Clavulanate 125 MG Oral Tablet amoxicillin 875 mg-potassium clavulanate 125 mg tablet TAKE 1 TABLET BY MOUTH TWICE DAILY amoxicillin 875 mg- potassium clavulanate 125 mg tablet TAKE 1 TABLET BY MOUTH TWICE DAILY 04/02/2020 12:00:00 AM EST completed amoxicillin 875 MG / clavulanate 125 MG Oral Tablet HILDA ([facility]) Amoxicillin 875 MG / Clavulanate 125 MG Oral Tablet amoxicillin 875 mg-potassium clavulanate 125 mg tablet TAKE 1 TABLET BY MOUTH TWICE DAILY amoxicillin 875 mg- potassium clavulanate 125 mg tablet TAKE 1 TABLET BY MOUTH TWICE DAILY 04/02/2020 12:00:00 AM EST completed amoxicillin 875 MG / clavulanate 125 MG Oral Tablet HILDA ([facility]) Amoxicillin 875 MG / Clavulanate 125 MG Oral Tablet amoxicillin 875 mg-potassium clavulanate 125 mg tablet TAKE 1 TABLET BY MOUTH TWICE DAILY amoxicillin 875 mg- potassium clavulanate 125 mg tablet TAKE 1 TABLET BY MOUTH TWICE DAILY 04/02/2020 12:00:00 AM EST completed amoxicillin 875 MG / clavulanate 125 MG Oral Tablet HILDA ([facility]) Amoxicillin 875 MG / Clavulanate 125 MG Oral Tablet amoxicillin 875 mg-potassium clavulanate 125 mg tablet TAKE 1 TABLET BY MOUTH TWICE DAILY amoxicillin 875 mg- potassium clavulanate 125 mg tablet TAKE 1 TABLET BY MOUTH TWICE DAILY 04/02/2020 12:00:00 AM EST completed amoxicillin 875 MG / clavulanate 125 MG Oral Tablet HILDA ([facility]) Amoxicillin 875 MG / Clavulanate 125 MG Oral Tablet amoxicillin 875 mg-potassium clavulanate 125 mg tablet TAKE 1 TABLET BY MOUTH TWICE DAILY amoxicillin 875 mg- potassium clavulanate 125 mg tablet TAKE 1 TABLET BY MOUTH TWICE DAILY 04/02/2020 12:00:00 AM EST completed amoxicillin 875 MG / clavulanate 125 MG Oral Tablet HILDA ([facility]) Amoxicillin 875 MG / Clavulanate 125 MG Oral Tablet amoxicillin 875 mg-potassium clavulanate 125 mg tablet TAKE 1 TABLET BY MOUTH TWICE DAILY amoxicillin 875 mg- potassium clavulanate 125 mg tablet TAKE 1 TABLET BY MOUTH TWICE DAILY 04/02/2020 12:00:00 AM EST completed amoxicillin 875 MG / clavulanate 125 MG Oral Tablet HILDA ([facility]) Amoxicillin 875 MG / Clavulanate 125 MG Oral Tablet amoxicillin 875 mg-potassium clavulanate 125 mg tablet TAKE 1 TABLET BY MOUTH TWICE DAILY amoxicillin 875 mg- potassium clavulanate 125 mg tablet TAKE 1 TABLET BY MOUTH TWICE DAILY 04/02/2020 12:00:00 AM EST completed amoxicillin 875 MG / clavulanate 125 MG Oral Tablet HILDA ([facility]) Amoxicillin 875 MG / Clavulanate 125 MG Oral Tablet amoxicillin 875 mg-potassium clavulanate 125 mg tablet TAKE 1 TABLET BY MOUTH TWICE DAILY amoxicillin 875 mg- potassium clavulanate 125 mg tablet TAKE 1 TABLET BY MOUTH TWICE DAILY 04/02/2020 12:00:00 AM EST completed amoxicillin 875 MG / clavulanate 125 MG Oral Tablet HILDA ([facility]) Amoxicillin 875 MG / Clavulanate 125 MG Oral Tablet amoxicillin 875 mg-potassium clavulanate 125 mg tablet TAKE 1 TABLET BY MOUTH TWICE DAILY amoxicillin 875 mg- potassium clavulanate 125 mg tablet TAKE 1 TABLET BY MOUTH TWICE DAILY 04/02/2020 12:00:00 AM EST completed amoxicillin 875 MG / clavulanate 125 MG Oral Tablet HILDA ([facility]) Amoxicillin 875 MG / Clavulanate 125 MG Oral Tablet amoxicillin 875 mg-potassium clavulanate 125 mg tablet TAKE 1 TABLET BY MOUTH TWICE DAILY amoxicillin 875 mg- potassium clavulanate 125 mg tablet TAKE 1 TABLET BY MOUTH TWICE DAILY 04/02/2020 12:00:00 AM EST completed amoxicillin 875 MG / clavulanate 125 MG Oral Tablet [place] ([facility]) atorvastatin 20 MG Oral Tablet Atorvastatin Calcium 01/10/2020 1 2:00:00 AM EST ORAL active MEDENT ( [facility]) cetirizine hydrochloride 10 MG Oral Tablet Cetirizine HCL 01/06/2020 12:00:00 AM EST ORAL active [facility] ([facility]) Lorazepam 1 MG Oral Tablet Lorazepam 01/06/2020 12:00:00 AM EST ORAL active [facility] ([facility]) Escitalopram 20 MG Oral Tablet Escitalopram Oxalate 01/06/2020 1 2:00:00 AM EST ORAL active MEDENT ( [facility]) Trazodone Hydrochloride 50 MG Oral Tablet Trazodone HCL 01/06/2020 12:00:00 AM EST ORAL active [facility] ([facility]) Hydroxyzine Hydrochloride 25 MG Oral Tablet Hydroxyzine HCL 01/06/2020 12:00:00 AM EST ORAL active [facility] ([facility]) Omeprazole 20 MG Delayed Release Oral Capsule Omeprazole 01/06/2020 12:00:00 AM EST ORAL active [facility] ([facility]) Escitalopram 10 MG Oral Tablet [Lexapro] Lexapro 10 mg tablet take one tablet po daily Lexapro 10 mg tablet take one tablet po daily 10/28/2019 12: 00:00 AM EDT completed escitalopram 1 0 MG Oral Tablet [Lexapro] HILDA ([facility]) Escitalopram 10 MG Oral Tablet [Lexapro] Lexapro 10 mg tablet take one tablet po daily Lexapro 10 mg tablet take one tablet po daily 10/28/2019 12: 00:00 AM EDT completed escitalopram 1 0 MG Oral Tablet [Lexapro] [facility]ILDA ([facility]) Escitalopram 10 MG Oral Tablet [Lexapro] Lexapro 10 mg tablet take one tablet po daily Lexapro 10 mg tablet take one tablet po daily 10/28/2019 12: 00:00 AM EDT completed escitalopram 1 0 MG Oral Tablet [Lexapro] [facility]ILDA ([facility]) Escitalopram 10 MG Oral Tablet [Lexapro] Lexapro 10 mg tablet take one tablet po daily Lexapro 10 mg tablet take one tablet po daily 10/28/2019 12: 00:00 AM EDT completed escitalopram 1 0 MG Oral Tablet [Lexapro] [facility]ILDA ([facility]) Escitalopram 10 MG Oral Tablet [Lexapro] Lexapro 10 mg tablet take one tablet po daily Lexapro 10 mg tablet take one tablet po daily 10/28/2019 12: 00:00 AM EDT completed escitalopram 1 0 MG Oral Tablet [Lexapro] [facility]DA ([facility]) Escitalopram 10 MG Oral Tablet [Lexapro] Lexapro 10 mg tablet take one tablet po daily Lexapro 10 mg tablet take one tablet po daily 10/28/2019 12: 00:00 AM EDT completed escitalopram 1 0 MG Oral Tablet [Lexapro] [facility]ILDA ([facility]) Escitalopram 10 MG Oral Tablet [Lexapro] Lexapro 10 mg tablet take one tablet po daily Lexapro 10 mg tablet take one tablet po daily 10/28/2019 12: 00:00 AM EDT completed escitalopram 1 0 MG Oral Tablet [Lexapro] [facility]ILDA ([facility]) Escitalopram 10 MG Oral Tablet [Lexapro] Lexapro 10 mg tablet take one tablet po daily Lexapro 10 mg tablet take one tablet po daily 10/28/2019 12: 00:00 AM EDT completed escitalopram 1 0 MG Oral Tablet [Lexapro] [facility]DA ([facility]) Escitalopram 10 MG Oral Tablet [Lexapro] Lexapro 10 mg tablet take one tablet po daily Lexapro 10 mg tablet take one tablet po daily 10/28/2019 12: 00:00 AM EDT completed escitalopram 1 0 MG Oral Tablet [Lexapro] [facility]DA ([facility]) Escitalopram 10 MG Oral Tablet [Lexapro] Lexapro 10 mg tablet take one tablet po daily Lexapro 10 mg tablet take one tablet po daily 10/28/2019 12: 00:00 AM EDT completed escitalopram 1 0 MG [facility] 10 MG Oral Tablet [Lexapro] Lexapro 10 mg tablet take one tablet po daily Lexapro 10 mg tablet take one tablet po daily 10/28/2019 12: 00:00 AM EDT completed escitalopram 1 0 MG Oral Tablet [Lexapro] [facility]) Escitalopram 10 MG Oral Tablet [Lexapro] Lexapro 10 mg tablet take one tablet po daily Lexapro 10 mg tablet take one tablet po daily 10/28/2019 12: 00:00 AM EDT completed escitalopram 1 0 MG Oral Tablet [Lexapro] [facility]ILDA ([facility]) Escitalopram 10 MG Oral Tablet [Lexapro] Lexapro 10 mg tablet take one tablet po daily Lexapro 10 mg tablet take one tablet po daily 10/28/2019 12: 00:00 AM EDT completed escitalopram 1 0 MG Oral Tablet [Lexapro] [facility]DA ([facility]) Escitalopram 10 MG Oral Tablet [Lexapro] Lexapro 10 mg tablet take one tablet po daily Lexapro 10 mg tablet take one tablet po daily 10/28/2019 12: 00:00 AM EDT completed escitalopram 1 0 MG Oral Tablet [Lexapro] [facility]ILDA ([facility]) Escitalopram 10 MG Oral Tablet [Lexapro] Lexapro 10 mg tablet take one tablet po daily Lexapro 10 mg tablet take one tablet po daily 10/28/2019 12: 00:00 AM EDT completed escitalopram 1 0 MG Oral Tablet [Lexapro] [facility]ILDA ([facility]) Escitalopram 10 MG Oral Tablet [Lexapro] Lexapro 10 mg tablet take one tablet po daily Lexapro 10 mg tablet take one tablet po daily 10/28/2019 12: 00:00 AM EDT completed escitalopram 1 0 MG Oral Tablet [Lexapro] [facility]DA ([facility]) Escitalopram 10 MG Oral Tablet [Lexapro] Lexapro 10 mg tablet take one tablet po daily Lexapro 10 mg tablet take one tablet po daily 10/28/2019 12: 00:00 AM EDT completed escitalopram 1 0 MG Oral Tablet [Lexapro] [facility]ILDA ([facility]) Escitalopram 10 MG Oral Tablet [Lexapro] Lexapro 10 mg tablet take one tablet po daily Lexapro 10 mg tablet take one tablet po daily 10/28/2019 12: 00:00 AM EDT completed escitalopram 1 0 MG Oral Tablet [Lexapro] [facility] ([facility]) Escitalopram 10 MG Oral Tablet [Lexapro] Lexapro 10 mg tablet take one tablet po daily Lexapro 10 mg tablet take one tablet po daily 10/28/2019 12: 00:00 AM EDT completed escitalopram 1 0 MG Oral Tablet [Lexapro] [facility]ILDA ([facility]) Escitalopram 10 MG Oral Tablet [Lexapro] Lexapro 10 mg tablet take one tablet po daily Lexapro 10 mg tablet take one tablet po daily 10/28/2019 12: 00:00 AM EDT completed escitalopram 1 0 MG Oral Tablet [Lexapro] [facility]ILDA ([facility]) Escitalopram 10 MG Oral Tablet [Lexapro] Lexapro 10 mg tablet take one tablet po daily Lexapro 10 mg tablet take one tablet po daily 10/28/2019 12: 00:00 AM EDT completed escitalopram 1 0 MG Oral Tablet [Lexapro] [facility]DA ([facility]) Escitalopram 10 MG Oral Tablet [Lexapro] Lexapro 10 mg tablet take one tablet po daily Lexapro 10 mg tablet take one tablet po daily 10/28/2019 12: 00:00 AM EDT completed escitalopram 1 0 MG Oral Tablet [Lexapro] [facility] ([facility]) Escitalopram 10 MG Oral Tablet [Lexapro] Lexapro 10 mg tablet take one tablet po daily Lexapro 10 mg tablet take one tablet po daily 10/28/2019 12: 00:00 AM EDT completed escitalopram 1 0 MG Oral Tablet [Lexapro] [facility] ([facility]) Escitalopram 10 MG Oral Tablet [Lexapro] Lexapro 10 mg tablet Take 1 tablet by mouth once daily Lexapro 10 mg tablet Take 1 tablet by mouth once daily 09/10/2019 12:00:00 AM EDT completed escitalopram 10 MG Oral Tablet [Lexapro] [facility]DA ([facility]) Escitalopram 10 MG Oral Tablet [Lexapro] Lexapro 10 mg tablet Take 1 tablet by mouth once daily Lexapro 10 mg tablet Take 1 tablet by mouth once daily 09/10/2019 12:00:00 AM EDT completed escitalopram 10 MG Oral Tablet [Lexapro] HILDA ([facility]) Trazodone Hydrochloride 50 MG Oral Table t trazodone 50 mg tablet TAKE 1 TABLET BY MOUTH ONCE DAILY AT BEDTIME trazodone 50 mg tablet TAKE 1 TABLET BY MOUTH ONCE DAILY AT BEDTIME completed trazodone hydrochloride 50 MG Oral Tablet HILDA ([facility]) Trazodone Hydrochloride 50 MG Oral Table t trazodone 50 mg tablet TAKE 1 TABLET BY MOUTH ONCE DAILY AT BEDTIME trazodone 50 mg tablet TAKE 1 TABLET BY MOUTH ONCE DAILY AT BEDTIME completed trazodone hydrochloride 50 MG Oral Tablet HILDA ([facility]) Hydroxyzine Hydrochloride 10 MG Oral Tab let hydroxyzine HCl 10 mg tablet TAKE 1 TO 2 TABLETS BY MOUTH EVERY 6 HOURS NEEDED hydroxyzine HCl 10 mg tablet TAKE 1 TO 2 TABLETS BY MOUTH EVERY 6 HOURS NEEDED completed hydroxyzine hydrochloride 10 MG Oral Tablet [facility]ILDA ([facility]) Trazodone Hydrochloride 50 MG Oral Table t trazodone 50 mg tablet TAKE 1 TABLET BY MOUTH ONCE DAILY AT BEDTIME trazodone 50 mg tablet TAKE 1 TABLET BY MOUTH ONCE DAILY AT BEDTIME completed trazodone hydrochloride 50 MG Oral Tablet HILDA ([facility]) Trazodone Hydrochloride 50 MG Oral Table t trazodone 50 mg tablet TAKE 1 TABLET BY MOUTH ONCE DAILY AT BEDTIME trazodone 50 mg tablet TAKE 1 TABLET BY MOUTH ONCE DAILY AT BEDTIME completed trazodone hydrochloride 50 MG Oral Tablet HILDA ([facility]) cetirizine hydrochloride 10 MG Oral Tabl et cetirizine 10 mg tablet TAKE 1 TABLET BY MOUTH ONCE DAILY cetirizine 10 mg tablet TAKE 1 TABLET BY MOUTH ONCE DA ANTHONY completed cetirizine hyd rochloride 10 MG Oral Tablet HILDA ([facility]) cetirizine hydrochloride 10 MG Oral Tabl et cetirizine 10 mg tablet TAKE 1 TABLET BY MOUTH ONCE DAILY cetirizine 10 mg tablet TAKE 1 TABLET BY MOUTH ONCE DA ANTHONY completed cetirizine hyd rochloride 10 MG Oral Tablet [place] ([facility]) Hydroxyzine Hydrochloride 10 MG Oral Tab let hydroxyzine HCl 10 mg tablet TAKE 1 TO 2 TABLETS BY MOUTH EVERY 6 HOURS NEEDED hydroxyzine HCl 10 mg tablet TAKE 1 TO 2 TABLETS BY MOUTH EVERY 6 HOURS NEEDED completed hydroxyzine hydrochloride 10 MG Oral Tablet [place] ([facility]) fluticasone propionate 50 mcg/actuation nasal spray,suspension [place] 1 spray every day by intranasal route as needed. [id number] 1 spray(s) completed fluticasone propionate 0.05 MG/ACTUAT Me tered Dose Nasal [place] [facility] ([facility]) Trazodone Hydrochloride 50 MG Oral Table t trazodone 50 mg tablet TAKE 1 TABLET BY MOUTH ONCE DAILY AT BEDTIME trazodone 50 mg tablet TAKE 1 TABLET BY MOUTH ONCE DAILY AT BEDTIME completed trazodone hydrochloride 50 MG Oral Tablet [facility]DA ([facility]) Escitalopram 10 MG Oral Tablet escitalop yuko 10 mg tablet TAKE 1 TABLET BY MOUTH ONCE DAILY escitalopram 10 mg tablet TAKE 1 TABLET BY MOUTH ONCE DAILY completed escitalopram 10 MG Oral T ablet HILDA ([facility]) cetirizine hydrochloride 10 MG Oral Tabl et cetirizine 10 mg tablet TAKE 1 TABLET BY MOUTH ONCE DAILY cetirizine 10 mg tablet TAKE 1 TABLET BY MOUTH ONCE DA ANTHONY completed cetirizine hyd rochloride 10 MG Oral Tablet [facility]ILDA ([facility]) cetirizine hydrochloride 10 MG Oral Tabl et cetirizine 10 mg tablet TAKE 1 TABLET BY MOUTH ONCE DAILY cetirizine 10 mg tablet TAKE 1 TABLET BY MOUTH ONCE DA ANTHONY completed cetirizine hyd rochloride 10 MG Oral Tablet [facility] ([facility]) cetirizine hydrochloride 10 MG Oral Tabl et cetirizine 10 mg tablet TAKE 1 TABLET BY MOUTH ONCE DAILY cetirizine 10 mg tablet TAKE 1 TABLET BY MOUTH ONCE DA ANTHONY completed cetirizine hyd rochloride 10 MG Oral Tablet [facility] ([facility]) Hydroxyzine Hydrochloride 10 MG Oral Tab let hydroxyzine HCl 10 mg tablet TAKE 1 TO 2 TABLETS BY MOUTH EVERY 6 HOURS NEEDED hydroxyzine HCl 10 mg tablet TAKE 1 TO 2 TABLETS BY MOUTH EVERY 6 HOURS NEEDED completed hydroxyzine hydrochloride 10 MG Oral Tablet [facility] ([facility]) cetirizine hydrochloride 10 MG Oral Tabl et cetirizine 10 mg tablet TAKE 1 TABLET BY MOUTH ONCE DAILY cetirizine 10 mg tablet TAKE 1 TABLET BY MOUTH ONCE DA ANTHONY completed cetirizine hyd rochloride 10 MG Oral Tablet [facility] ([facility]) cetirizine hydrochloride 10 MG Oral Tabl et cetirizine 10 mg tablet TAKE 1 TABLET BY MOUTH ONCE DAILY cetirizine 10 mg tablet TAKE 1 TABLET BY MOUTH ONCE DA ANTHONY completed cetirizine hyd rochloride 10 MG Oral Tablet [facility] ([facility]) cetirizine hydrochloride 10 MG Oral Tabl et cetirizine 10 mg tablet TAKE 1 TABLET BY MOUTH ONCE DAILY cetirizine 10 mg tablet TAKE 1 TABLET BY MOUTH ONCE DA ANTHONY completed cetirizine hyd rochloride 10 MG Oral Tablet [facility] ([facility]) albuterol sulfate HFA 90 mcg/actuation a erosol inhaler INHALE 2 PUFFS BY MOUTH EVERY 4 HOURS NEEDED [id number] completed [id number] 200 ACTUAT albuterol 0.09 MG/ACTUAT Metered Dose Inhaler HILDA ([facility]) Trazodone Hydrochloride 50 MG Oral Table t trazodone 50 mg tablet TAKE 1 TABLET BY MOUTH ONCE DAILY AT BEDTIME trazodone 50 mg tablet TAKE 1 TABLET BY MOUTH ONCE DAILY AT BEDTIME completed [facility]one hydrochloride [facility] Escitalopram 10 MG Oral Tablet escitalop yuko 10 mg tablet TAKE 1 TABLET BY MOUTH ONCE DAILY escitalopram 10 mg tablet TAKE 1 TABLET BY MOUTH ONCE DAILY completed escitalopram 10 MG Oral T ablet [facility]ILDA ([facility]) Trazodone Hydrochloride 50 MG Oral Table t trazodone 50 mg tablet TAKE 1 TABLET BY MOUTH ONCE DAILY AT BEDTIME trazodone 50 mg tablet TAKE 1 TABLET BY MOUTH ONCE DAILY AT BEDTIME completed trazodone hydrochloride 50 MG Oral Tablet [facility] ([facility]) Trazodone Hydrochloride 50 MG Oral Table t trazodone 50 mg tablet TAKE 1 TABLET BY MOUTH ONCE DAILY AT BEDTIME trazodone 50 mg tablet TAKE 1 TABLET BY MOUTH ONCE DAILY AT BEDTIME completed trazodone hydrochloride 50 MG Oral Tablet [facility] ([facility]) Hydroxyzine Hydrochloride 10 MG Oral Tab let hydroxyzine HCl 10 mg tablet TAKE 1 TO 2 TABLETS BY MOUTH EVERY 6 HOURS NEEDED hydroxyzine HCl 10 mg tablet TAKE 1 TO 2 TABLETS BY MOUTH EVERY 6 HOURS NEEDED completed hydroxyzine hydrochloride 10 MG Oral Tablet [facility] ([facility]) cetirizine hydrochloride 10 MG Oral Tabl et cetirizine 10 mg tablet TAKE 1 TABLET BY MOUTH ONCE DAILY cetirizine 10 mg tablet TAKE 1 TABLET BY MOUTH ONCE DA ANTHONY completed cetirizine hyd rochloride 10 MG Oral Tablet [facility]ILDA ([facility]) Escitalopram 10 MG Oral Tablet escitalop yuko 10 mg tablet TAKE 1 TABLET BY MOUTH ONCE DAILY escitalopram 10 mg tablet TAKE 1 TABLET BY MOUTH ONCE DAILY completed escitalopram 10 MG Oral T ablet [facility]ILDA ([facility]) cetirizine hydrochloride 10 MG Oral Tabl et cetirizine 10 mg tablet TAKE 1 TABLET BY MOUTH ONCE DAILY cetirizine 10 mg tablet TAKE 1 TABLET BY MOUTH ONCE DA ANTHONY completed cetirizine hyd rochloride 10 MG Oral Tablet [facility] ([facility]) Hydroxyzine Hydrochloride 10 MG Oral Tab let hydroxyzine HCl 10 mg tablet TAKE 1 TO 2 TABLETS BY MOUTH EVERY 6 HOURS NEEDED hydroxyzine HCl 10 mg tablet TAKE 1 TO 2 TABLETS BY MOUTH EVERY 6 HOURS NEEDED completed hydroxyzine hydrochloride 10 MG Oral Tablet [facility] ([facility]) Lorazepam 1 MG Oral Tablet lorazepam 1 m g tablet TAKE 1 TABLET BY MOUTH ONCE DAILY NEEDED . DO NOT EXCEED 1 PER 24 HOURS lorazepam 1 mg tablet TAKE 1 TABLET BY MOUTH ONCE DAILY NEEDED . DO NOT EXCEED 1 PER 24 HOURS completed lorazepam 1 MG Oral Tablet ATHEN A ([facility]) cetirizine hydrochloride 10 MG Oral Tabl et cetirizine 10 mg tablet TAKE 1 TABLET BY MOUTH ONCE DAILY cetirizine 10 mg tablet TAKE 1 TABLET BY MOUTH ONCE DA ANTHONY completed cetirizine hyd rochloride 10 MG Oral Tablet [facility]DA ([facility]) cetirizine hydrochloride 10 MG Oral Tabl et cetirizine 10 mg tablet TAKE 1 TABLET BY MOUTH ONCE DAILY cetirizine 10 mg tablet TAKE 1 TABLET BY MOUTH ONCE DA ANTHONY completed cetirizine hyd rochloride 10 MG Oral Tablet [facility] ([facility]) Sumatriptan 25 MG Oral Tablet sumatripta n 25 mg tablet Take 1 tablet po at onset of migraine, repeat in 2 hrs if headache persists; MDD 2 tablets sumatriptan 25 mg tablet Take 1 tablet po at onset of migraine, repeat in 2 hrs if headache persists; MDD 2 tablets completed sumatriptan 25 MG Oral Tablet [facility] ([facility]) albuterol sulfate HFA 90 mcg/actuation a erosol inhaler INHALE 2 PUFFS BY MOUTH EVERY 4 HOURS NEEDED [id number] completed [id number] 200 ACTUAT albuterol 0.09 MG/ACTUAT Metered Dose Inhaler [facility] ([facility]) fluticasone propionate 50 mcg/actuation nasal spray,suspension [place] 1 spray every day by intranasal route as needed. [id number] 1 spray(s) completed fluticasone propionate 0.05 MG/ACTUAT Me tered Dose Nasal [place] [facility] ([facility]) Trazodone Hydrochloride 50 MG Oral Table t trazodone 50 mg tablet TAKE 1 TABLET BY MOUTH ONCE DAILY AT BEDTIME trazodone 50 mg tablet TAKE 1 TABLET BY MOUTH ONCE DAILY AT BEDTIME completed trazodone hydrochloride 50 MG Oral Tablet [place] ([facility]) Trazodone Hydrochloride 50 MG Oral Table t trazodone 50 mg tablet TAKE 1 TABLET BY MOUTH ONCE DAILY AT BEDTIME trazodone 50 mg tablet TAKE 1 TABLET BY MOUTH ONCE DAILY AT BEDTIME completed trazodone hydrochloride 50 MG Oral Tablet [facility] ([facility]) Hydroxyzine Hydrochloride 25 MG Oral Tab let hydroxyzine HCl 25 mg tablet TAKE 1 TO 2 TABLETS BY MOUTH ONCE DAILY NEEDED hydroxyzine HCl 25 mg tablet TAKE 1 TO 2 TABLETS BY MOUTH ONCE DAILY NEEDED completed hydroxyzine hydrochloride 25 MG Oral Tablet [facility] ([facility]) Trazodone Hydrochloride 50 MG Oral Table t trazodone 50 mg tablet TAKE 1 TABLET BY MOUTH ONCE DAILY AT BEDTIME trazodone 50 mg tablet TAKE 1 TABLET BY MOUTH ONCE DAILY AT BEDTIME completed trazodone hydrochloride 50 MG Oral Tablet [facility] ([facility]) cetirizine hydrochloride 10 MG Oral Tabl et cetirizine 10 mg tablet TAKE 1 TABLET BY MOUTH ONCE DAILY cetirizine 10 mg tablet TAKE 1 TABLET BY MOUTH ONCE DA ANTHONY completed cetirizine hyd rochloride 10 MG Oral Tablet [facility] ([facility]) Trazodone Hydrochloride 50 MG Oral Table t trazodone 50 mg tablet TAKE 1 TABLET BY MOUTH ONCE DAILY AT BEDTIME trazodone 50 mg tablet TAKE 1 TABLET BY MOUTH ONCE DAILY AT BEDTIME completed trazodone hydrochloride 50 MG Oral Tablet [facility] ([facility]) Escitalopram 10 MG Oral Tablet escitalop yuko 10 mg tablet TAKE 1 TABLET BY MOUTH ONCE DAILY escitalopram 10 mg tablet TAKE 1 TABLET BY MOUTH ONCE DAILY completed escitalopram 10 MG Oral T ablet [facility] ([facility]) cetirizine hydrochloride 10 MG Oral Tabl et cetirizine 10 mg tablet TAKE 1 TABLET BY MOUTH ONCE DAILY cetirizine 10 mg tablet TAKE 1 TABLET BY MOUTH ONCE DA ANTHONY completed cetirizine hyd rochloride 10 MG Oral Tablet [facility] ([facility]) Trazodone Hydrochloride 50 MG Oral Table t trazodone 50 mg tablet TAKE 1 TABLET BY MOUTH ONCE DAILY AT BEDTIME trazodone 50 mg tablet TAKE 1 TABLET BY MOUTH ONCE DAILY AT BEDTIME completed trazodone hydrochloride 50 MG Oral Tablet [facility] ([facility]) Trazodone Hydrochloride 50 MG Oral Table t trazodone 50 mg tablet TAKE 1 TABLET BY MOUTH ONCE DAILY AT BEDTIME trazodone 50 mg tablet TAKE 1 TABLET BY MOUTH ONCE DAILY AT BEDTIME completed trazodone hydrochloride 50 MG Oral Tablet [facility] ([facility]) Lorazepam 1 MG Oral Tablet lorazepam 1 m g tablet TAKE 1 TABLET BY MOUTH ONCE DAILY NEEDED . DO NOT EXCEED 1 PER 24 HOURS lorazepam 1 mg tablet TAKE 1 TABLET BY MOUTH ONCE DAILY NEEDED . DO NOT EXCEED 1 PER 24 HOURS completed lorazepam 1 MG Oral Tablet ATHEN A ([facility]) Escitalopram 10 MG Oral Tablet escitalop yuko 10 mg tablet TAKE 1 TABLET BY MOUTH ONCE DAILY escitalopram 10 mg tablet TAKE 1 TABLET BY MOUTH ONCE DAILY completed escitalopram 10 MG Oral T ablet [facility] ([facility]) Hydroxyzine Hydrochloride 10 MG Oral Tab let hydroxyzine HCl 10 mg tablet TAKE 1 TO 2 TABLETS BY MOUTH EVERY 6 HOURS NEEDED hydroxyzine HCl 10 mg tablet TAKE 1 TO 2 TABLETS BY MOUTH EVERY 6 HOURS NEEDED completed hydroxyzine hydrochloride 10 MG Oral Tablet [facility] ([facility]) Trazodone Hydrochloride 50 MG Oral Table t trazodone 50 mg tablet TAKE 1 TABLET BY MOUTH ONCE DAILY AT BEDTIME trazodone 50 mg tablet TAKE 1 TABLET BY MOUTH ONCE DAILY AT BEDTIME completed trazodone hydrochloride 50 MG Oral Tablet [facility]DA ([facility]) cetirizine hydrochloride 10 MG Oral Tabl et cetirizine 10 mg tablet TAKE 1 TABLET BY MOUTH ONCE DAILY cetirizine 10 mg tablet TAKE 1 TABLET BY MOUTH ONCE DA ANTHONY completed cetirizine hyd rochloride 10 MG Oral Tablet [facility] ([facility]) Hydroxyzine Hydrochloride 10 MG Oral Tab let hydroxyzine HCl 10 mg tablet TAKE 1 TO 2 TABLETS BY MOUTH EVERY 6 HOURS NEEDED hydroxyzine HCl 10 mg tablet TAKE 1 TO 2 TABLETS BY MOUTH EVERY 6 HOURS NEEDED completed hydroxyzine hydrochloride 10 MG Oral Tablet [facility] ([facility]) Hydroxyzine Hydrochloride 10 MG Oral Tab let hydroxyzine HCl 10 mg tablet TAKE 1 TO 2 TABLETS BY MOUTH EVERY 6 HOURS NEEDED hydroxyzine HCl 10 mg tablet TAKE 1 TO 2 TABLETS BY MOUTH EVERY 6 HOURS NEEDED completed hydroxyzine hydrochloride 10 MG Oral Tablet [facility] ([facility]) Omeprazole 20 MG Delayed Release Oral Ca psule omeprazole 20 mg capsule,delayed release TAKE 1 CAPSULE BY MOUTH IN THE MORNING ON AN EMPTY STOMACH omeprazole 20 mg capsule,delayed release TAKE 1 CAPSULE BY MOUTH IN THE MORNING ON AN EMPTY STOMACH completed omeprazole 20 MG Delayed Release Oral Capsule HILDA ([facility]) Escitalopram 10 MG Oral Tablet escitalop yuko 10 mg tablet TAKE 1 TABLET BY MOUTH ONCE DAILY escitalopram 10 mg tablet TAKE 1 TABLET BY MOUTH ONCE DAILY completed escitalopram 10 MG Oral T ablet [facility]ILDA ([facility]) Escitalopram 10 MG Oral Tablet escitalop yuko 10 mg tablet TAKE 1 TABLET BY MOUTH ONCE DAILY escitalopram 10 mg tablet TAKE 1 TABLET BY MOUTH ONCE DAILY completed escitalopram 10 MG Oral T ablet [facility]DA ([facility]) Trazodone Hydrochloride 50 MG Oral Table t trazodone 50 mg tablet TAKE 1 TABLET BY MOUTH ONCE DAILY AT BEDTIME trazodone 50 mg tablet TAKE 1 TABLET BY MOUTH ONCE DAILY AT BEDTIME completed trazodone hydrochloride 50 MG Oral Tablet [facility] ([facility]) cetirizine hydrochloride 10 MG Oral Tabl et cetirizine 10 mg tablet TAKE 1 TABLET BY MOUTH ONCE DAILY cetirizine 10 mg tablet TAKE 1 TABLET BY MOUTH ONCE DA ANTHONY completed cetirizine hyd rochloride 10 MG Oral Tablet [facility] ([facility]) cetirizine hydrochloride 10 MG Oral Tabl et cetirizine 10 mg tablet TAKE 1 TABLET BY MOUTH ONCE DAILY cetirizine 10 mg tablet TAKE 1 TABLET BY MOUTH ONCE DA ANTHONY completed cetirizine hyd rochloride 10 MG Oral Tablet [facility] ([facility]) Trazodone Hydrochloride 50 MG Oral Table t trazodone 50 mg tablet TAKE 1 TABLET BY MOUTH ONCE DAILY AT BEDTIME trazodone 50 mg tablet TAKE 1 TABLET BY MOUTH ONCE DAILY AT BEDTIME completed trazodone hydrochloride 50 MG Oral Tablet [facility] ([facility]) Trazodone Hydrochloride 50 MG Oral Table t trazodone 50 mg tablet TAKE 1 TABLET BY MOUTH ONCE DAILY AT BEDTIME trazodone 50 mg tablet TAKE 1 TABLET BY MOUTH ONCE DAILY AT BEDTIME completed trazodone hydrochloride 50 MG Oral Tablet [facility] ([facility]) Trazodone Hydrochloride 50 MG Oral Table t trazodone 50 mg tablet TAKE 1 TABLET BY MOUTH ONCE DAILY AT BEDTIME trazodone 50 mg tablet TAKE 1 TABLET BY MOUTH ONCE DAILY AT BEDTIME completed trazodone hydrochloride 50 MG Oral Tablet [facility] ([facility]) cetirizine hydrochloride 10 MG Oral Tabl et cetirizine 10 mg tablet TAKE 1 TABLET BY MOUTH ONCE DAILY cetirizine 10 mg tablet TAKE 1 TABLET BY MOUTH ONCE DA ANTHONY completed cetirizine hyd rochloride 10 MG Oral Tablet [facility] ([facility]) cetirizine hydrochloride 10 MG Oral Tabl et cetirizine 10 mg tablet TAKE 1 TABLET BY MOUTH ONCE DAILY cetirizine 10 mg tablet TAKE 1 TABLET BY MOUTH ONCE DA ANTHONY completed cetirizine hyd rochloride 10 MG Oral Tablet [facility] ([facility]) Trazodone Hydrochloride 50 MG Oral Table t trazodone 50 mg tablet TAKE 1 TABLET BY MOUTH ONCE DAILY AT BEDTIME trazodone 50 mg tablet TAKE 1 TABLET BY MOUTH ONCE DAILY AT BEDTIME completed trazodone hydrochloride 50 MG Oral Tablet [place] ([facility]) Omeprazole 20 MG Delayed Release Oral Ca psule omeprazole 20 mg capsule,delayed release TAKE 1 CAPSULE BY MOUTH IN THE MORNING ON AN EMPTY STOMACH omeprazole 20 mg capsule,delayed release TAKE 1 CAPSULE BY MOUTH IN THE MORNING ON AN EMPTY STOMACH completed omeprazole 20 MG Delayed Release Oral Capsule [facility] ([facility]) Trazodone Hydrochloride 50 MG Oral Table t trazodone 50 mg tablet TAKE 1 TABLET BY MOUTH ONCE DAILY AT BEDTIME trazodone 50 mg tablet TAKE 1 TABLET BY MOUTH ONCE DAILY AT BEDTIME completed trazodone hydrochloride 50 MG Oral Tablet [facility] ([facility]) Hydroxyzine Hydrochloride 10 MG Oral Tab let hydroxyzine HCl 10 mg tablet TAKE 1 TO 2 TABLETS BY MOUTH EVERY 6 HOURS NEEDED hydroxyzine HCl 10 mg tablet TAKE 1 TO 2 TABLETS BY MOUTH EVERY 6 HOURS NEEDED completed hydroxyzine hydrochloride 10 MG Oral Tablet [facility] ([facility]) cetirizine hydrochloride 10 MG Oral Tabl et cetirizine 10 mg tablet TAKE 1 TABLET BY MOUTH ONCE DAILY cetirizine 10 mg tablet TAKE 1 TABLET BY MOUTH ONCE DA ANTHONY completed cetirizine hyd rochloride 10 MG Oral Tablet [facility] ([facility]) Trazodone Hydrochloride 50 MG Oral Table t trazodone 50 mg tablet TAKE 1 TABLET BY MOUTH ONCE DAILY AT BEDTIME trazodone 50 mg tablet TAKE 1 TABLET BY MOUTH ONCE DAILY AT BEDTIME completed trazodone hydrochloride 50 MG Oral Tablet [facility] ([facility]) Escitalopram 10 MG Oral Tablet escitalop yuko 10 mg tablet TAKE 1 TABLET BY MOUTH ONCE DAILY escitalopram 10 mg tablet TAKE 1 TABLET BY MOUTH ONCE DAILY completed escitalopram 10 MG Oral T ablet [facility] ([facility]) Trazodone Hydrochloride 50 MG Oral Table t trazodone 50 mg tablet TAKE 1 TABLET BY MOUTH ONCE DAILY AT BEDTIME trazodone 50 mg tablet TAKE 1 TABLET BY MOUTH ONCE DAILY AT BEDTIME completed trazodone hydrochloride 50 MG Oral Tablet [facility] ([facility]) Trazodone Hydrochloride 50 MG Oral Table t trazodone 50 mg tablet TAKE 1 TABLET BY MOUTH ONCE DAILY AT BEDTIME trazodone 50 mg tablet TAKE 1 TABLET BY MOUTH ONCE DAILY AT BEDTIME completed trazodone hydrochloride 50 MG Oral Tablet [place] ([facility]) Sumatriptan 25 MG Oral Tablet sumatripta n 25 mg tablet Take 1 tablet po at onset of migraine, repeat in 2 hrs if headache persists; MDD 2 tablets sumatriptan 25 mg tablet Take 1 tablet po at onset of migraine, repeat in 2 hrs if headache persists; MDD 2 tablets completed sumatriptan 25 MG Oral Tablet [facility] ([facility]) Hydroxyzine Hydrochloride 25 MG Oral Tab let hydroxyzine HCl 25 mg tablet TAKE 1 TO 2 TABLETS BY MOUTH ONCE DAILY NEEDED hydroxyzine HCl 25 mg tablet TAKE 1 TO 2 TABLETS BY MOUTH ONCE DAILY NEEDED completed hydroxyzine hydrochloride 25 MG Oral Tablet [facility] ([facility]) Hydroxyzine Hydrochloride 10 MG Oral Tab let hydroxyzine HCl 10 mg tablet TAKE 1 TO 2 TABLETS BY MOUTH EVERY 6 HOURS NEEDED hydroxyzine HCl 10 mg tablet TAKE 1 TO 2 TABLETS BY MOUTH EVERY 6 HOURS NEEDED completed hydroxyzine hydrochloride 10 MG Oral Tablet [facility] ([facility]) Escitalopram 10 MG Oral Tablet escitalop yuko 10 mg tablet TAKE 1 TABLET BY MOUTH ONCE DAILY escitalopram 10 mg tablet TAKE 1 TABLET BY MOUTH ONCE DAILY completed escitalopram 10 MG Oral T ablet [facility] ([facility]) Trazodone Hydrochloride 50 MG Oral Table t trazodone 50 mg tablet TAKE 1 TABLET BY MOUTH ONCE DAILY AT BEDTIME trazodone 50 mg tablet TAKE 1 TABLET BY MOUTH ONCE DAILY AT BEDTIME completed trazodone hydrochloride 50 MG Oral Tablet [facility] ([facility]) Escitalopram 10 MG Oral Tablet escitalop yuko 10 mg tablet TAKE 1 TABLET BY MOUTH ONCE DAILY escitalopram 10 mg tablet TAKE 1 TABLET BY MOUTH ONCE DAILY completed escitalopram 10 MG Oral T ablet [facility] ([facility]) Trazodone Hydrochloride 50 MG Oral Table t trazodone 50 mg tablet TAKE 1 TABLET BY MOUTH ONCE DAILY AT BEDTIME trazodone 50 mg tablet TAKE 1 TABLET BY MOUTH ONCE DAILY AT BEDTIME completed trazodone hydrochloride 50 MG Oral Tablet [facility] ([facility]) Trazodone Hydrochloride 50 MG Oral Table t trazodone 50 mg tablet TAKE 1 TABLET BY MOUTH ONCE DAILY AT BEDTIME trazodone 50 mg tablet TAKE 1 TABLET BY MOUTH ONCE DAILY AT BEDTIME completed trazodone hydrochloride 50 MG Oral Tablet [facility] ([facility]) cetirizine hydrochloride 10 MG Oral Tabl et cetirizine 10 mg tablet TAKE 1 TABLET BY MOUTH ONCE DAILY cetirizine 10 mg tablet TAKE 1 TABLET BY MOUTH ONCE DA ANTHONY completed cetirizine hyd rochloride 10 MG Oral Tablet [facility] ([facility]) Insurance Providers Payer name Policy type / Coverage type Policy ID Covered libertarian ID Covered libertarian's relationship to mahajan Policy Mahajan Plan Information [employer] [id number] SP [id number] Sliding Fee Scale P None S No ne [facility] [id number] SP [id number] MEDICAID [id number] S [id number] MEDICAID [id number] SP [id number] [facility] [id number] SP [id number] [facility] SP [facility] COMP [id number] SP [id number] SELF PAY ONLY SP1 SP SP1 O UNAVAILABLE UNAVAILA BLE SELF PAY UNAVAILABLE SP UNAVAILA BLE EXCELLUS BCBS B [id number] S [id number] [place] 302/307 [id number] SP [id number] [employer] [place] 306/806 [id number] SP [id number] Self Pay S UNAVAILABLE S UNA[place] BLE [employer] [place] [facility] [id number] MO2 [id number] SELF PAY ONLY [id number] Problems, Conditions, and Diagnoses Code Display Name Description Problem Type Effective Dates Data Source(s) 645282897 COVID-19 Covid-19 Problem 11/19/2020 12:00:00 AM ED T [facility] ([facility]) [id number] COVID-19 Covid-19 Problem 11/19/2020 12:00:00 AM ED T [facility] ([facility]) [id number] Migraine Migraine Problem 05/20/2020 12:00:00 AM ED T [facility] ([facility]) [id number] Headache Headache Problem 05/20/2020 12:00:00 AM ED T [facility] ([facility]) [id number] Numbness Numbness Problem 05/20/2020 12:00:00 AM ED T MED[facility] ([facility]) [id number] Elevated blood-pressure reading without diagnosis of hypertension Elevated Blood-pressure Reading without Diagnosis of Hypertension Problem 02/02/2020 12:00:00 AM EST [facility] ([facility]) [id number] Elevated blood-pressure reading without diagnosis of hypertension Elevated Blood-pressure Reading without Diagnosis of Hypertension Problem 02/02/2020 12:00:00 AM EST [facility] ([facility]) [id number] Elevated blood-pressure reading without diagnosis of hypertension Elevated Blood-pressure Reading without Diagnosis of Hypertension Problem 02/02/2020 12:00:00 AM EST [facility] ([facility]) [id number] Elevated blood-pressure reading without diagnosis of hypertension Elevated Blood-pressure Reading without Diagnosis of Hypertension Problem 02/02/2020 12:00:00 AM EST [facility] ([facility]) [id number] Elevated blood-pressure reading without diagnosis of hypertension Elevated Blood-pressure Reading without Diagnosis of Hypertension Problem 02/02/2020 12:00:00 AM EST [facility] ([facility]) [id number] Elevated blood-pressure reading without diagnosis of hypertension Elevated Blood-pressure Reading without Diagnosis of Hypertension Problem 02/02/2020 12:00:00 AM EST [facility] ([facility]) [id number] Elevated blood-pressure reading without diagnosis of hypertension Elevated Blood-pressure Reading without Diagnosis of Hypertension Problem 02/02/2020 12:00:00 AM EST [facility] ([facility]) [id number] Elevated blood-pressure reading without diagnosis of hypertension Elevated Blood-pressure Reading without Diagnosis of Hypertension Problem 02/02/2020 12:00:00 AM EST [facility] ([facility]) [id number] Elevated blood-pressure reading without diagnosis of hypertension Elevated Blood-pressure Reading without Diagnosis of Hypertension Problem 02/02/2020 12:00:00 AM EST [facility] ([facility]) [id number] Elevated blood-pressure reading without diagnosis of hypertension Elevated Blood-pressure Reading without Diagnosis of Hypertension Problem 02/02/2020 12:00:00 AM EST [facility] ([facility]) [id number] Elevated blood-pressure reading without diagnosis of hypertension Elevated Blood-pressure Reading without Diagnosis of Hypertension Problem 02/02/2020 12:00:00 AM EST [facility] ([facility]) [id number] Elevated blood-pressure reading without diagnosis of hypertension Elevated Blood-pressure Reading without Diagnosis of Hypertension Problem 02/02/2020 12:00:00 AM EST [facility] ([facility]) [id number] Elevated blood-pressure reading without diagnosis of hypertension Elevated Blood-pressure Reading without Diagnosis of Hypertension Problem 02/02/2020 12:00:00 AM EST [facility] ([facility]) [id number] Elevated blood-pressure reading without diagnosis of hypertension Elevated Blood-pressure Reading without Diagnosis of Hypertension Problem 02/02/2020 12:00:00 AM EST [facility] ([facility]) [id number] Elevated blood-pressure reading without diagnosis of hypertension Elevated Blood-pressure Reading without Diagnosis of Hypertension Problem 02/02/2020 12:00:00 AM EST [facility] ([facility]) [id number] Elevated blood-pressure reading without diagnosis of hypertension Elevated Blood-pressure Reading without Diagnosis of Hypertension Problem 02/02/2020 12:00:00 AM EST [facility] ([facility]) [id number] Elevated blood-pressure reading without diagnosis of hypertension Elevated Blood-pressure Reading without Diagnosis of Hypertension Problem 02/02/2020 12:00:00 AM EST [facility] ([facility]) [id number] Elevated blood-pressure reading without diagnosis of hypertension Elevated Blood-pressure Reading without Diagnosis of Hypertension Problem 02/02/2020 12:00:00 AM EST [facility] ([facility]) [id number] Elevated blood-pressure reading without diagnosis of hypertension Elevated Blood-pressure Reading without Diagnosis of Hypertension Problem 02/02/2020 12:00:00 AM EST [facility] ([facility]) [id number] Elevated blood-pressure reading without diagnosis of hypertension Elevated Blood-pressure Reading without Diagnosis of Hypertension Problem 02/02/2020 12:00:00 AM EST [facility] ([facility]) [id number] Elevated blood-pressure reading without diagnosis of hypertension Elevated Blood-pressure Reading without Diagnosis of Hypertension Problem 02/02/2020 12:00:00 AM EST [facility] ([facility]) [id number] Elevated blood-pressure reading without diagnosis of hypertension Elevated Blood-pressure Reading without Diagnosis of Hypertension Problem 02/02/2020 12:00:00 AM EST [facility] ([facility]) [id number] Elevated blood-pressure reading without diagnosis of hypertension Elevated Blood-pressure Reading without Diagnosis of Hypertension Problem 02/02/2020 12:00:00 AM EST [facility] ([facility]) [id number] Elevated blood-pressure reading without diagnosis of hypertension Elevated Blood-pressure Reading without Diagnosis of Hypertension Problem 02/02/2020 12:00:00 AM EST [facility] ([facility]) [id number] Elevated blood-pressure reading without diagnosis of hypertension Elevated Blood-pressure Reading without Diagnosis of Hypertension Problem 02/02/2020 12:00:00 AM EST [facility] ([facility]) [id number] Elevated blood-pressure reading without diagnosis of hypertension Elevated Blood-pressure Reading without Diagnosis of Hypertension Problem 02/02/2020 12:00:00 AM EST [facility] ([facility]) [id number] Elevated blood-pressure reading without diagnosis of hypertension Elevated Blood-pressure Reading without Diagnosis of Hypertension Problem 02/02/2020 12:00:00 AM EST [facility]DA ([facility]) [id number] Electrocardiogram abnormal Electrocardiogram Abnormal Problem 01/07/2020 12:00:00 AM EST [facility]DA ([facility]) [id number] Precordial pain Precordial Pain Problem 01/07/2020 12:0 0:00 AM EST [facility]DA ([facility]) [id number] Palpitations Palpitations Problem 01/07/2020 12:00:00 A M EVE STEVENS ([facility]) [id number] Gastroesophageal reflux disease Gastroesophageal Reflux Disease Problem 01/07/2020 12:00:00 AM EST [facility]DA ([facility]) [id number] Body mass index 30+ - obesity Body Mass Index 30+ - Ob esity Problem 01/07/2020 12:00:00 AM EST [facility]DA ([facility]) [id number] Electrocardiogram abnormal Electrocardiogram Abnormal Problem 01/07/2020 12:00:00 AM EST [facility]DA ([facility]) [id number] Precordial pain Precordial Pain Problem 01/07/2020 12:0 0:00 AM EST [facility]DA ([facility]) [id number] Palpitations Palpitations Problem 01/07/2020 12:00:00 A M EST [facility]DA ([facility]) [id number] Gastroesophageal reflux disease Gastroesophageal Reflux Disease Problem 01/07/2020 12:00:00 AM EST [facility]DA ([facility]) [id number] Body mass index 30+ - obesity Body Mass Index 30+ - Ob esity Problem 01/07/2020 12:00:00 AM EST [facility]DA ([facility]) K21.9 Gastroesophageal reflux disease Gastroesophageal reflu x disease Problem 01/07/2020 12:00:00 AM EST MEDENT ([facility]) R00.2 Palpitations Palpitations Problem 01/07/2020 12:00:00 A M EST MEDENT ([facility]) Z68.30 Body mass index 30+ - obesity Body mass index 30+ - ob esity Problem 01/07/2020 12:00:00 AM EST MEDENT ([facility]) R94.31 Electrocardiogram abnormal Electrocardiogram abnormal Problem 01/07/2020 12:00:00 AM EST MEDENT ([facility]) R07.2 Precordial pain Precordial pain Problem 01/07/2020 12:0 0:00 AM EST MEDENT ([facility]) [id number] Panic disorder without agoraphobia Panic Disorde r without Agoraphobia Problem 12/29/2019 12:00:00 AM EST [facility]DA ([facility]) [id number] Panic disorder without agoraphobia Panic Disorde r without Agoraphobia Problem 12/29/2019 12:00:00 AM EST [facility] ([facility]) [id number] Panic disorder without agoraphobia Panic Disorde r without Agoraphobia Problem 12/29/2019 12:00:00 AM EST [facility]DA ([facility]) [id number] Panic disorder without agoraphobia Panic Disorde r without Agoraphobia Problem 12/29/2019 12:00:00 AM EST [facility]DA ([facility]) [id number] Panic disorder without agoraphobia Panic Disorde r without Agoraphobia Problem 12/29/2019 12:00:00 AM EST [facility]DA ([facility]) [id number] Panic disorder without agoraphobia Panic Disorde r without Agoraphobia Problem 12/29/2019 12:00:00 AM EST [facility]DA ([facility]) [id number] Panic disorder without agoraphobia Panic Disorde r without Agoraphobia Problem 12/29/2019 12:00:00 AM EST [facility]DA ([facility]) [id number] Panic disorder without agoraphobia Panic Disorde r without Agoraphobia Problem 12/29/2019 12:00:00 AM EST [facility] ([facility]) [id number] Panic disorder without agoraphobia Panic Disorde r without Agoraphobia Problem 12/29/2019 12:00:00 AM EST [facility]ILAD ([facility]) [id number] Panic disorder without agoraphobia Panic Disorde r without Agoraphobia Problem 12/29/2019 12:00:00 AM EST [facility]DA ([facility]) [id number] Panic disorder without agoraphobia Panic Disorde r without Agoraphobia Problem 12/29/2019 12:00:00 AM EST [facility]ILDA ([facility]) [id number] Panic disorder without agoraphobia Panic Disorde r without Agoraphobia Problem 12/29/2019 12:00:00 AM EST [facility]DA ([facility]) [id number] Panic disorder without agoraphobia Panic Disorde r without Agoraphobia Problem 12/29/2019 12:00:00 AM EST [facility]ILDA ([facility]) [id number] Panic disorder without agoraphobia Panic Disorde r without Agoraphobia Problem 12/29/2019 12:00:00 AM EST [facility]ILDA ([facility]) [id number] Panic disorder without agoraphobia Panic Disorde r without Agoraphobia Problem 12/29/2019 12:00:00 AM EST [facility]ILDA ([facility]) [id number] Panic disorder without agoraphobia Panic Disorde r without Agoraphobia Problem 12/29/2019 12:00:00 AM EST [facility]DA ([facility]) [id number] Panic disorder without agoraphobia Panic Disorde r without Agoraphobia Problem 12/29/2019 12:00:00 AM EST [facility]DA ([facility]) [id number] Panic disorder without agoraphobia Panic Disorde r without Agoraphobia Problem 12/29/2019 12:00:00 AM EST [facility]ILDA ([facility]) [id number] Panic disorder without agoraphobia Panic Disorde r without Agoraphobia Problem 12/29/2019 12:00:00 AM EST [facility]ILDA ([facility]) [id number] Panic disorder without agoraphobia Panic Disorde r without Agoraphobia Problem 12/29/2019 12:00:00 AM EST [facility]ILDA ([facility]) [id number] Panic disorder without agoraphobia Panic Disorde r without Agoraphobia Problem 12/29/2019 12:00:00 AM EST [facility]ILDA ([facility]) [id number] Panic disorder without agoraphobia Panic Disorde r without Agoraphobia Problem 12/29/2019 12:00:00 AM EST [facility]ILDA ([facility]) [id number] Panic disorder without agoraphobia Panic Disorde r without Agoraphobia Problem 12/29/2019 12:00:00 AM EST [facility]ILDA ([facility]) [id number] Panic disorder without agoraphobia Panic Disorde r without Agoraphobia Problem 12/29/2019 12:00:00 AM EST [facility]ILDA ([facility]) [id number] Panic disorder without agoraphobia Panic Disorde r without Agoraphobia Problem 12/29/2019 12:00:00 AM EST [facility]ILDA ([facility]) [id number] Panic disorder without agoraphobia Panic Disorde r without Agoraphobia Problem 12/29/2019 12:00:00 AM EST [facility]ILDA ([facility]) [id number] Panic disorder without agoraphobia Panic Disorde r without Agoraphobia Problem 12/29/2019 12:00:00 AM EST [facility]ILDA ([facility]) [id number] Panic disorder without agoraphobia Panic Disorde r without Agoraphobia Problem 12/29/2019 12:00:00 AM EST [facility]ILDA ([facility]) [id number] Panic disorder without agoraphobia Panic Disorde r without Agoraphobia Problem 12/29/2019 12:00:00 AM EST [facility]ILDA ([facility]) [id number] Panic disorder without agoraphobia Panic Disorde r without Agoraphobia Problem 12/29/2019 12:00:00 AM EST [facility]ILDA ([facility]) [id number] Panic disorder without agoraphobia Panic Disorde r without Agoraphobia Problem 12/29/2019 12:00:00 AM EST [facility]ILDA ([facility]) [id number] Panic disorder without agoraphobia Panic Disorde r without Agoraphobia Problem 12/29/2019 12:00:00 AM EST [facility]ILDA ([facility]) [id number] Panic disorder without agoraphobia Panic Disorde r without Agoraphobia Problem 12/29/2019 12:00:00 AM EST [facility] ([facility]) [id number] Panic disorder without agoraphobia Panic Disorde r without Agoraphobia Problem 12/29/2019 12:00:00 AM EST [facility] ([facility]) [id number] Psychophysiologic insomnia Psychophysiologic Insomnia Problem 12/11/2019 12:00:00 AM EST [facility] ([facility]) [id number] Psychophysiologic insomnia Psychophysiologic Insomnia Problem 12/11/2019 12:00:00 AM EST [facility] ([facility]) [id number] Psychophysiologic insomnia Psychophysiologic Insomnia Problem 12/11/2019 12:00:00 AM EST [facility] ([facility]) [id number] Psychophysiologic insomnia Psychophysiologic Insomnia Problem 12/11/2019 12:00:00 AM EST [facility] ([facility]) [id number] Psychophysiologic insomnia Psychophysiologic Insomnia Problem 12/11/2019 12:00:00 AM EST [facility] ([facility]) [id number] Psychophysiologic insomnia Psychophysiologic Insomnia Problem 12/11/2019 12:00:00 AM EST [facility] ([facility]) [id number] Psychophysiologic insomnia Psychophysiologic Insomnia Problem 12/11/2019 12:00:00 AM EST [facility] ([facility]) [id number] Psychophysiologic insomnia Psychophysiologic Insomnia Problem 12/11/2019 12:00:00 AM EST [facility] ([facility]) [id number] Psychophysiologic insomnia Psychophysiologic Insomnia Problem 12/11/2019 12:00:00 AM EST [facility] ([facility]) [id number] Psychophysiologic insomnia Psychophysiologic Insomnia Problem 12/11/2019 12:00:00 AM EST [facility] ([facility]) [id number] Psychophysiologic insomnia Psychophysiologic Insomnia Problem 12/11/2019 12:00:00 AM EST [facility] ([facility]) [id number] Psychophysiologic insomnia Psychophysiologic Insomnia Problem 12/11/2019 12:00:00 AM EST [facility] ([facility]) [id number] Psychophysiologic insomnia Psychophysiologic Insomnia Problem 12/11/2019 12:00:00 AM EST [facility] ([facility]) [id number] Psychophysiologic insomnia Psychophysiologic Insomnia Problem 12/11/2019 12:00:00 AM EST [facility] ([facility]) [id number] Psychophysiologic insomnia Psychophysiologic Insomnia Problem 12/11/2019 12:00:00 AM EST [facility] ([facility]) [id number] Psychophysiologic insomnia Psychophysiologic Insomnia Problem 12/11/2019 12:00:00 AM EST [place] ([facility]) [id number] Psychophysiologic insomnia Psychophysiologic Insomnia Problem 12/11/2019 12:00:00 AM EST [facility] ([facility]) [id number] Psychophysiologic insomnia Psychophysiologic Insomnia Problem 12/11/2019 12:00:00 AM EST [facility] ([facility]) [id number] Psychophysiologic insomnia Psychophysiologic Insomnia Problem 12/11/2019 12:00:00 AM EST [facility] ([facility]) [id number] Psychophysiologic insomnia Psychophysiologic Insomnia Problem 12/11/2019 12:00:00 AM EST [facility] ([facility]) [id number] Psychophysiologic insomnia Psychophysiologic Insomnia Problem 12/11/2019 12:00:00 AM EST [facility] ([facility]) [id number] Psychophysiologic insomnia Psychophysiologic Insomnia Problem 12/11/2019 12:00:00 AM EST [facility] ([facility]) [id number] Psychophysiologic insomnia Psychophysiologic Insomnia Problem 12/11/2019 12:00:00 AM EST [facility] ([facility]) [id number] Psychophysiologic insomnia Psychophysiologic Insomnia Problem 12/11/2019 12:00:00 AM EST [facility] ([facility]) [id number] Psychophysiologic insomnia Psychophysiologic Insomnia Problem 12/11/2019 12:00:00 AM EST [facility] ([facility]) [id number] Psychophysiologic insomnia Psychophysiologic Insomnia Problem 12/11/2019 12:00:00 AM EST [facility] ([facility]) [id number] Psychophysiologic insomnia Psychophysiologic Insomnia Problem 12/11/2019 12:00:00 AM EST [facility] ([facility]) [id number] Psychophysiologic insomnia Psychophysiologic Insomnia Problem 12/11/2019 12:00:00 AM EST [facility] ([facility]) [id number] Psychophysiologic insomnia Psychophysiologic Insomnia Problem 12/11/2019 12:00:00 AM EST [facility] ([facility]) [id number] Psychophysiologic insomnia Psychophysiologic Insomnia Problem 12/11/2019 12:00:00 AM EST [facility] ([facility]) [id number] Psychophysiologic insomnia Psychophysiologic Insomnia Problem 12/11/2019 12:00:00 AM EST [facility] ([facility]) [id number] Psychophysiologic insomnia Psychophysiologic Insomnia Problem 12/11/2019 12:00:00 AM EST [facility] ([facility]) [id number] Psychophysiologic insomnia Psychophysiologic Insomnia Problem 12/11/2019 12:00:00 AM EST [facility] ([facility]) [id number] Psychophysiologic insomnia Psychophysiologic Insomnia Problem 12/11/2019 12:00:00 AM EST [facility] ([facility]) [id number] Psychophysiologic insomnia Psychophysiologic Insomnia Problem 12/11/2019 12:00:00 AM EST [facility] ([facility]) [id number] Psychophysiologic insomnia Psychophysiologic Insomnia Problem 12/11/2019 12:00:00 AM EST [facility] ([facility]) [id number] Psychophysiologic insomnia Psychophysiologic Insomnia Problem 12/11/2019 12:00:00 AM EST [facility] ([facility]) [id number] Psychophysiologic insomnia Psychophysiologic Insomnia Problem 12/11/2019 12:00:00 AM EST [facility] ([facility]) [id number] Generalized anxiety disorder Generalized Anxiety Disor sallie Problem 12/01/2019 12:00:00 AM EDT [facility] ([facility]) [id number] Generalized anxiety disorder Generalized Anxiety Disor sallie Problem 12/01/2019 12:00:00 AM EDT [facility] ([facility]) [id number] Generalized anxiety disorder Generalized Anxiety Disor sallie Problem 12/01/2019 12:00:00 AM EDT [facility] ([facility]) [id number] Generalized anxiety disorder Generalized Anxiety Disor sallie Problem 12/01/2019 12:00:00 AM EDT [facility] ([facility]) [id number] Generalized anxiety disorder Generalized Anxiety Disor sallie Problem 12/01/2019 12:00:00 AM EDT [facility] ([facility]) [id number] Generalized anxiety disorder Generalized Anxiety Disor sallie Problem 12/01/2019 12:00:00 AM EDT [facility] ([facility]) [id number] Generalized anxiety disorder Generalized Anxiety Disor sallie Problem 12/01/2019 12:00:00 AM EDT [facility] ([facility]) [id number] Generalized anxiety disorder Generalized Anxiety Disor sallie Problem 12/01/2019 12:00:00 AM EDT [facility] ([facility]) [id number] Generalized anxiety disorder Generalized Anxiety Disor sallie Problem 12/01/2019 12:00:00 AM EDT [facility] ([facility]) [id number] Generalized anxiety disorder Generalized Anxiety Disor sallie Problem 12/01/2019 12:00:00 AM EDT [facility] ([facility]) [id number] Generalized anxiety disorder Generalized Anxiety Disor sallie Problem 12/01/2019 12:00:00 AM EDT [facility] ([facility]) [id number] Generalized anxiety disorder Generalized Anxiety Disor sallie Problem 12/01/2019 12:00:00 AM EDT [facility] ([facility]) [id number] Generalized anxiety disorder Generalized Anxiety Disor sallie Problem 12/01/2019 12:00:00 AM EDT [facility] ([facility]) [id number] Generalized anxiety disorder Generalized Anxiety Disor sallie Problem 12/01/2019 12:00:00 AM EDT [facility] ([facility]) [id number] Generalized anxiety disorder Generalized Anxiety Disor sallie Problem 12/01/2019 12:00:00 AM EDT [facility] ([facility]) [id number] Generalized anxiety disorder Generalized Anxiety Disor sallie Problem 12/01/2019 12:00:00 AM EDT [facility] ([facility]) [id number] Generalized anxiety disorder Generalized Anxiety Disor sallie Problem 12/01/2019 12:00:00 AM EDT [facility] ([facility]) [id number] Generalized anxiety disorder Generalized Anxiety Disor sallie Problem 12/01/2019 12:00:00 AM EDT [facility] ([facility]) [id number] Generalized anxiety disorder Generalized Anxiety Disor sallie Problem 12/01/2019 12:00:00 AM EDT [facility] ([facility]) [id number] Generalized anxiety disorder Generalized Anxiety Disor sallie Problem 12/01/2019 12:00:00 AM EDT [facility] ([facility]) [id number] Generalized anxiety disorder Generalized Anxiety Disor sallie Problem 12/01/2019 12:00:00 AM EDT [facility] ([facility]) [id number] Generalized anxiety disorder Generalized Anxiety Disor sallie Problem 12/01/2019 12:00:00 AM EDT [facility] ([facility]) [id number] Generalized anxiety disorder Generalized Anxiety Disor sallie Problem 12/01/2019 12:00:00 AM EDT [facility] ([facility]) [id number] Generalized anxiety disorder Generalized Anxiety Disor sallie Problem 12/01/2019 12:00:00 AM EDT [facility] ([facility]) [id number] Generalized anxiety disorder Generalized Anxiety Disor sallie Problem 12/01/2019 12:00:00 AM EDT [facility] ([facility]) [id number] Generalized anxiety disorder Generalized Anxiety Disor sallie Problem 12/01/2019 12:00:00 AM EDT [facility] ([facility]) [id number] Generalized anxiety disorder Generalized Anxiety Disor sallie Problem 12/01/2019 12:00:00 AM EDT [facility] ([facility]) [id number] Generalized anxiety disorder Generalized Anxiety Disor sallie Problem 12/01/2019 12:00:00 AM EDT [facility] ([facility]) 21440701 Generalized anxiety disorder Generalized Anxiety Disor sallie Problem 12/01/2019 12:00:00 AM EDT [facility] ([facility]) [id number] Generalized anxiety disorder Generalized Anxiety Disor sallie Problem 12/01/2019 12:00:00 AM EDT [facility] ([facility]) [id number] Generalized anxiety disorder Generalized Anxiety Disor sallie Problem 12/01/2019 12:00:00 AM EDT [facility] ([facility]) [id number] Generalized anxiety disorder Generalized Anxiety Disor sallie Problem 12/01/2019 12:00:00 AM EDT [facility] ([facility]) [id number] Generalized anxiety disorder Generalized Anxiety Disor sallie Problem 12/01/2019 12:00:00 AM EDT [facility] ([facility]) [id number] Generalized anxiety disorder Generalized Anxiety Disor sallie Problem 12/01/2019 12:00:00 AM EDT [facility] ([facility]) [id number] Generalized anxiety disorder Generalized Anxiety Disor sallie Problem 12/01/2019 12:00:00 AM EDT [facility] ([facility]) [id number] Generalized anxiety disorder Generalized Anxiety Disor sallie Problem 12/01/2019 12:00:00 AM EDT [facility] ([facility]) [id number] Generalized anxiety disorder Generalized Anxiety Disor sallie Problem 12/01/2019 12:00:00 AM EDT [facility] ([facility]) [id number] Generalized anxiety disorder Generalized Anxiety Disor sallie Problem 12/01/2019 12:00:00 AM EDT [facility] ([facility]) [id number] Generalized anxiety disorder Generalized Anxiety Disor sallie Problem 12/01/2019 12:00:00 AM EDT [facility] ([facility]) [id number] Generalized anxiety disorder Generalized Anxiety Disor sallie Problem 12/01/2019 12:00:00 AM EDT [facility] ([facility]) 427.89 Bradycardia Bradycardia 10/28/2019 04:05:45 PM EDT [facility] [id number] Chest pain, unspecified Chest pain, unspecified 10/28/2019 04:05:45 PM EDT [facility] [id number] Chronic insomnia Chronic insomnia 10/28/2019 04 :05:45 PM EDT [facility] [id number] Cardiovascular measurement - finding Car diovascular Measurement - Finding Problem 10/28/2019 12:00:00 AM EDT [place] ([facility]) [id number] Chest pain Chest Pain Problem 10/28/2019 12:00:00 AM ED T [place] ([facility]) [id number] Cardiovascular measurement - finding Car diovascular Measurement - Finding Problem 10/28/2019 12:00:00 AM EDT [facility] ([facility]) [id number] Chest pain Chest Pain Problem 10/28/2019 12:00:00 AM ED T [place] ([facility]) 270400112 Cardiovascular measurement - finding Car diovascular Measurement - Finding Problem 10/28/2019 12:00:00 AM EDT [facility] ([facility]) [id number] Chest pain Chest Pain Problem 10/28/2019 12:00:00 AM ED T [facility] ([facility]) [id number] Cardiovascular measurement - finding Car diovascular Measurement - Finding Problem 10/28/2019 12:00:00 AM EDT [facility] ([facility]) [id number] Chest pain Chest Pain Problem 10/28/2019 12:00:00 AM ED T [facility] ([facility]) [id number] Cardiovascular measurement - finding Car diovascular Measurement - Finding Problem 10/28/2019 12:00:00 AM EDT [facility] ([facility]) [id number] Chest pain Chest Pain Problem 10/28/2019 12:00:00 AM ED T [facility] ([facility]) [id number] Cardiovascular measurement - finding Car diovascular Measurement - Finding Problem 10/28/2019 12:00:00 AM EDT [facility] ([facility]) [id number] Chest pain Chest Pain Problem 10/28/2019 12:00:00 AM ED T [place] ([facility]) [id number] Cardiovascular measurement - finding Car diovascular Measurement - Finding Problem 10/28/2019 12:00:00 AM EDT [facility] ([facility]) 64733470 Chest pain Chest Pain Problem 10/28/2019 12:00:00 AM ED T [place] ([facility]) 150393181 Cardiovascular measurement - finding Car diovascular Measurement - Finding Problem 10/28/2019 12:00:00 AM EDT [facility] ([facility]) [id number] Chest pain Chest Pain Problem 10/28/2019 12:00:00 AM ED T [facility] ([facility]) [id number] Cardiovascular measurement - finding Car diovascular Measurement - Finding Problem 10/28/2019 12:00:00 AM EDT [facility] ([facility]) [id number] Chest pain Chest Pain Problem 10/28/2019 12:00:00 AM ED T [place] ([facility]) 390241206 Cardiovascular measurement - finding Car diovascular Measurement - Finding Problem 10/28/2019 12:00:00 AM EDT [facility] ([facility]) [id number] Chest pain Chest Pain Problem 10/28/2019 12:00:00 AM ED T [place] ([facility]) [id number] Cardiovascular measurement - finding Car diovascular Measurement - Finding Problem 10/28/2019 12:00:00 AM EDT [facility] ([facility]) [id number] Chest pain Chest Pain Problem 10/28/2019 12:00:00 AM ED T [place] ([facility]) [id number] Cardiovascular measurement - finding Car diovascular Measurement - Finding Problem 10/28/2019 12:00:00 AM EDT [facility] ([facility]) [id number] Chest pain Chest Pain Problem 10/28/2019 12:00:00 AM ED T [facility] ([facility]) [id number] Cardiovascular measurement - finding Car diovascular Measurement - Finding Problem 10/28/2019 12:00:00 AM EDT [facility] ([facility]) [id number] Chest pain Chest Pain Problem 10/28/2019 12:00:00 AM ED T [place] ([facility]) [id number] Cardiovascular measurement - finding Car diovascular Measurement - Finding Problem 10/28/2019 12:00:00 AM EDT [facility] ([facility]) [id number] Chest pain Chest Pain Problem 10/28/2019 12:00:00 AM ED T [place] ([facility]) 539492513 Cardiovascular measurement - finding Car diovascular Measurement - Finding Problem 10/28/2019 12:00:00 AM EDT [facility] ([facility]) [id number] Chest pain Chest Pain Problem 10/28/2019 12:00:00 AM ED T [place] ([facility]) [id number] Cardiovascular measurement - finding Car diovascular Measurement - Finding Problem 10/28/2019 12:00:00 AM EDT [facility] ([facility]) [id number] Chest pain Chest Pain Problem 10/28/2019 12:00:00 AM ED T [place] ([facility]) 117921188 Cardiovascular measurement - finding Car diovascular Measurement - Finding Problem 10/28/2019 12:00:00 AM EDT [facility] ([facility]) [id number] Chest pain Chest Pain Problem 10/28/2019 12:00:00 AM ED T [place] ([facility]) [id number] Cardiovascular measurement - finding Car diovascular Measurement - Finding Problem 10/28/2019 12:00:00 AM EDT [facility] ([facility]) [id number] Chest pain Chest Pain Problem 10/28/2019 12:00:00 AM ED T [place] ([facility]) [id number] Cardiovascular measurement - finding Car diovascular Measurement - Finding Problem 10/28/2019 12:00:00 AM EDT [facility] ([facility]) [id number] Chest pain Chest Pain Problem 10/28/2019 12:00:00 AM ED T [place] ([facility]) [id number] Cardiovascular measurement - finding Car diovascular Measurement - Finding Problem 10/28/2019 12:00:00 AM EDT [place] ([facility]) 13730934 Chest pain Chest Pain Problem 10/28/2019 12:00:00 AM ED T [place] ([facility]) [id number] Cardiovascular measurement - finding Car diovascular Measurement - Finding Problem 10/28/2019 12:00:00 AM EDT [place] ([facility]) [id number] Chest pain Chest Pain Problem 10/28/2019 12:00:00 AM ED T [place] ([facility]) [id number] Cardiovascular measurement - finding Car diovascular Measurement - Finding Problem 10/28/2019 12:00:00 AM EDT [facility] ([facility]) [id number] Chest pain Chest Pain Problem 10/28/2019 12:00:00 AM ED T [place] ([facility]) [id number] Cardiovascular measurement - finding Car diovascular Measurement - Finding Problem 10/28/2019 12:00:00 AM EDT [place] ([facility]) [id number] Chest pain Chest Pain Problem 10/28/2019 12:00:00 AM ED T [place] ([facility]) 300.02 GENERALIZED ANXIETY DISORDER GENERALIZED ANXIETY DISOR SALLIE 10/14/2019 09:01:07 AM EDT [facility] 300.01 PANIC DISORDER PANIC DISORDER 10/14/2019 09:01: 07 AM EDT [facility] [id number] Panic disorder Panic Disorder Problem 10/14/2019 12:00:00 AM EDT - 06/22/2020 12:00:00 AM EDT [facility] ([facility]) [id number] Panic disorder Panic Disorder Problem 10/14/2019 12:00:00 AM EDT - 06/22/2020 12:00:00 AM EDT [place] ([facility]) [id number] Panic disorder Panic Disorder Problem 10/14/2019 12:00:00 AM EDT - 06/22/2020 12:00:00 AM EDT [facility] ([facility]) [id number] Panic disorder Panic Disorder Problem 10/14/2019 12:00:00 AM EDT - 06/22/2020 12:00:00 AM EDT [facility] ([facility]) [id number] Panic disorder Panic Disorder Problem 10/14/2019 12:00:00 AM EDT - 06/22/2020 12:00:00 AM EDT [place] ([facility]) [id number] Panic disorder Panic Disorder Problem 10/14/2019 12:00:00 AM EDT - 06/22/2020 12:00:00 AM EDT [place] ([facility]) [id number] Panic disorder Panic Disorder Problem 10/14/2019 12:00:00 AM EDT - 06/22/2020 12:00:00 AM EDT [place] ([facility]) [id number] Panic disorder Panic Disorder Problem 10/14/2019 12:00:00 AM EDT - 06/22/2020 12:00:00 AM EDT [place] ([facility]) [id number] Panic disorder Panic Disorder Problem 10/14/2019 12:00: 00 AM EDT [place] ([facility]) [id number] Panic disorder Panic Disorder Problem 10/14/2019 12:00: 00 AM EDT [place] ([facility]) [id number] Panic disorder Panic Disorder Problem 10/14/2019 12:00: 00 AM EDT [place] ([facility]) [id number] Panic disorder Panic Disorder Problem 10/14/2019 12:00:00 AM EDT - 06/22/2020 12:00:00 AM EDT [place] ([facility]) [id number] Panic disorder Panic Disorder Problem 10/14/2019 12:00:00 AM EDT - 06/22/2020 12:00:00 AM EDT [place] ([facility]) [id number] Panic disorder Panic Disorder Problem 10/14/2019 12:00:00 AM EDT - 06/22/2020 12:00:00 AM EDT [place] ([facility]) [id number] Panic disorder Panic Disorder Problem 10/14/2019 12:00:00 AM EDT - 06/22/2020 12:00:00 AM EDT [place] ([facility]) [id number] Panic disorder Panic Disorder Problem 10/14/2019 12:00:00 AM EDT - 06/22/2020 12:00:00 AM EDT [place] ([facility]) [id number] Panic disorder Panic Disorder Problem 10/14/2019 12:00:00 AM EDT - 06/22/2020 12:00:00 AM EDT [place] ([facility]) [id number] Panic disorder Panic Disorder Problem 10/14/2019 12:00: 00 AM EDT [place] ([facility]) [id number] Panic disorder Panic Disorder Problem 10/14/2019 12:00: 00 AM EDT [place] ([facility]) [id number] Panic disorder Panic Disorder Problem 10/14/2019 12:00: 00 AM EDT [place] ([facility]) [id number] Panic disorder Panic Disorder Problem 10/14/2019 12:00:00 AM EDT - 06/22/2020 12:00:00 AM EDT [place] ([facility]) [id number] Panic disorder Panic Disorder Problem 10/14/2019 12:00:00 AM EDT - 06/22/2020 12:00:00 AM EDT [place] ([facility]) [id number] Panic disorder Panic Disorder Problem 10/14/2019 12:00: 00 AM EDT [place] ([facility]) [id number] Panic disorder Panic Disorder Problem 09/10/2019 12:00:00 AM EDT - 12/29/2019 12:00:00 AM EST [place] ([facility]) [id number] Procedure by method Procedure by Method Problem 0 09/10/2019 12:00:00 AM EDT - 12/11/2019 12:00:00 AM EST [place] ([facility]) [id number] Adjustment disorder with mixed anxiety a nd depressed mood Adjustment Disorder with Mixed Anxiety and Depressed Mood Problem 12:00:00 AM EDT - 06/22/2020 12:00:00 AM EDT [place] ([facility]) [id number] Panic disorder Panic Disorder Problem 09/10/2019 12:00:00 AM EDT - 12/29/2019 12:00:00 AM EST [place] ([facility]) [id number] Procedure by method Procedure by Method Problem 0 09/10/2019 12:00:00 AM EDT - 12/11/2019 12:00:00 AM EST [place] ([facility]) [id number] Adjustment disorder with mixed anxiety a nd depressed mood Adjustment Disorder with Mixed Anxiety and Depressed Mood Problem 12:00:00 AM EDT - 06/22/2020 12:00:00 AM EDT [place] ([facility]) [id number] Panic disorder Panic Disorder Problem 09/10/2019 12:00:00 AM EDT - 12/29/2019 12:00:00 AM EST [place] ([facility]) [id number] Procedure by method Procedure by Method Problem 0 09/10/2019 12:00:00 AM EDT - 12/11/2019 12:00:00 AM EST [place] ([facility]) [id number] Adjustment disorder with mixed anxiety a nd depressed mood Adjustment Disorder with Mixed Anxiety and Depressed Mood Problem 12:00:00 AM EDT - 06/22/2020 12:00:00 AM EDT [place] ([facility]) [id number] Panic disorder Panic Disorder Problem 09/10/2019 12:00:00 AM EDT - 12/29/2019 12:00:00 AM EST [place] ([facility]) [id number] Procedure by method Procedure by Method Problem 0 09/10/2019 12:00:00 AM EDT - 12/11/2019 12:00:00 AM EST [facility] ([facility]) [id number] Adjustment disorder with mixed anxiety a nd depressed mood Adjustment Disorder with Mixed Anxiety and Depressed Mood Problem 12:00:00 AM EDT - 06/22/2020 12:00:00 AM EDT [place] ([facility]) 784291205 Panic disorder Panic Disorder Problem 09/10/2019 12:00:00 AM EDT - 12/29/2019 12:00:00 AM EST HILDA ([facility] er) [id number] Procedure by method Procedure by Method Problem 0 09/10/2019 12:00:00 AM EDT - 12/11/2019 12:00:00 AM EST HILDA ([facility] er) [id number] Adjustment disorder with mixed anxiety a nd depressed mood Adjustment Disorder with Mixed Anxiety and Depressed Mood Problem 12:00:00 AM EDT - 06/22/2020 12:00:00 AM EDT HILDA ([facility] er) [id number] Panic disorder Panic Disorder Problem 09/10/2019 12:00:00 AM EDT - 12/29/2019 12:00:00 AM EST HILDA ([facility] er) [id number] Procedure by method Procedure by Method Problem 0 09/10/2019 12:00:00 AM EDT - 12/11/2019 12:00:00 AM EST HILDA ([facility] er) [id number] Adjustment disorder with mixed anxiety a nd depressed mood Adjustment Disorder with Mixed Anxiety and Depressed Mood Problem 12:00:00 AM EDT - 06/22/2020 12:00:00 AM EDT HILDA ([facility] er) [id number] Panic disorder Panic Disorder Problem 09/10/2019 12:00:00 AM EDT - 12/29/2019 12:00:00 AM EST HILDA ([facility] er) [id number] Procedure by method Procedure by Method Problem 0 09/10/2019 12:00:00 AM EDT - 12/11/2019 12:00:00 AM EST HILDA ([facility] er) [id number] Adjustment disorder with mixed anxiety a nd depressed mood Adjustment Disorder with Mixed Anxiety and Depressed Mood Problem 12:00:00 AM EDT - 06/22/2020 12:00:00 AM EDT HILDA ([facility] er) [id number] Panic disorder Panic Disorder Problem 09/10/2019 12:00:00 AM EDT - 12/29/2019 12:00:00 AM EST HILDA ([facility] er) [id number] Procedure by method Procedure by Method Problem 0 09/10/2019 12:00:00 AM EDT - 12/11/2019 12:00:00 AM EST HILDA ([facility] er) [id number] Adjustment disorder with mixed anxiety a nd depressed mood Adjustment Disorder with Mixed Anxiety and Depressed Mood Problem 12:00:00 AM EDT - 06/22/2020 12:00:00 AM EDT HILDA ([facility] er) [id number] Panic disorder Panic Disorder Problem 09/10/2019 12:00:00 AM EDT - 12/29/2019 12:00:00 AM EST HILDA ([facility] er) [id number] Procedure by method Procedure by Method Problem 0 09/10/2019 12:00:00 AM EDT - 12/11/2019 12:00:00 AM EST HILDA ([facility] er) [id number] Adjustment disorder with mixed anxiety a nd depressed mood Adjustment Disorder with Mixed Anxiety and Depressed Mood Problem 12:00:00 AM EDT - 06/22/2020 12:00:00 AM EDT HILDA ([facility] er) [id number] Panic disorder Panic Disorder Problem 09/10/2019 12:00:00 AM EDT - 12/29/2019 12:00:00 AM EST HILDA ([facility] er) [id number] Procedure by method Procedure by Method Problem 0 09/10/2019 12:00:00 AM EDT - 12/11/2019 12:00:00 AM EST HILDA ([facility] er) [id number] Panic disorder Panic Disorder Problem 09/10/2019 12:00:00 AM EDT - 12/29/2019 12:00:00 AM EST HILDA ([facility] er) [id number] Procedure by method Procedure by Method Problem 0 09/10/2019 12:00:00 AM EDT - 12/11/2019 12:00:00 AM EST HILDA ([facility] er) [id number] Panic disorder Panic Disorder Problem 09/10/2019 12:00:00 AM EDT - 12/29/2019 12:00:00 AM EST HILDA ([facility] er) [id number] Procedure by method Procedure by Method Problem 0 09/10/2019 12:00:00 AM EDT - 12/11/2019 12:00:00 AM EST HILDA ([facility] er) [id number] Panic disorder Panic Disorder Problem 09/10/2019 12:00:00 AM EDT - 12/29/2019 12:00:00 AM EST HILDA ([facility] er) [id number] Procedure by method Procedure by Method Problem 0 09/10/2019 12:00:00 AM EDT - 12/11/2019 12:00:00 AM EST HILDA ([facility] er) [id number] Panic disorder Panic Disorder Problem 09/10/2019 12:00:00 AM EDT - 12/29/2019 12:00:00 AM EST HILDA ([facility] er) [id number] Procedure by method Procedure by Method Problem 0 09/10/2019 12:00:00 AM EDT - 12/11/2019 12:00:00 AM EST HILDA ([facility] er) [id number] Panic disorder Panic Disorder Problem 09/10/2019 12:00:00 AM EDT - 12/29/2019 12:00:00 AM EST HILDA ([facility] er) [id number] Procedure by method Procedure by Method Problem 0 09/10/2019 12:00:00 AM EDT - 12/11/2019 12:00:00 AM EST HILDA ([facility] er) [id number] Adjustment disorder with mixed anxiety a nd depressed mood Adjustment Disorder with Mixed Anxiety and Depressed Mood Problem 12:00:00 AM EDT - 06/22/2020 12:00:00 AM EDT HILDA ([facility] er) [id number] Panic disorder Panic Disorder Problem 09/10/2019 12:00:00 AM EDT - 12/29/2019 12:00:00 AM EST HILDA ([facility] er) [id number] Procedure by method Procedure by Method Problem 0 09/10/2019 12:00:00 AM EDT - 12/11/2019 12:00:00 AM EST HILDA ([facility] er) [id number] Adjustment disorder with mixed anxiety a nd depressed mood Adjustment Disorder with Mixed Anxiety and Depressed Mood Problem 12:00:00 AM EDT - 06/22/2020 12:00:00 AM EDT HILDA ([facility] er) [id number] Panic disorder Panic Disorder Problem 09/10/2019 12:00:00 AM EDT - 12/29/2019 12:00:00 AM EST HILDA ([facility] er) [id number] Procedure by method Procedure by Method Problem 0 09/10/2019 12:00:00 AM EDT - 12/11/2019 12:00:00 AM EST HILDA ([facility] er) [id number] Adjustment disorder with mixed anxiety a nd depressed mood Adjustment Disorder with Mixed Anxiety and Depressed Mood Problem 12:00:00 AM EDT - 06/22/2020 12:00:00 AM EDT HILDA ([facility] er) [id number] Panic disorder Panic Disorder Problem 09/10/2019 12:00:00 AM EDT - 12/29/2019 12:00:00 AM EST HILDA ([facility] er) [id number] Procedure by method Procedure by Method Problem 0 09/10/2019 12:00:00 AM EDT - 12/11/2019 12:00:00 AM EST HILDA ([facility] er) [id number] Adjustment disorder with mixed anxiety a nd depressed mood Adjustment Disorder with Mixed Anxiety and Depressed Mood Problem 020 12:00:00 AM EDT - 06/22/2020 12:00:00 AM EDT HILDA ([facility] er) [id number] Panic disorder Panic Disorder Problem 09/10/2019 12:00:00 AM EDT - 12/29/2019 12:00:00 AM EST HILDA ([facility] er) [id number] Procedure by method Procedure by Method Problem 0 09/10/2019 12:00:00 AM EDT - 12/11/2019 12:00:00 AM EST HILDA ([facility] er) [id number] Panic disorder Panic Disorder Problem 09/10/2019 12:00:00 AM EDT - 12/29/2019 12:00:00 AM EST HILDA ([facility] er) [id number] Procedure by method Procedure by Method Problem 0 09/10/2019 12:00:00 AM EDT - 12/11/2019 12:00:00 AM EST HILDA ([facility] er) [id number] Adjustment disorder with mixed anxiety a nd depressed mood Adjustment Disorder with Mixed Anxiety and Depressed Mood Problem 020 12:00:00 AM EDT - 06/22/2020 12:00:00 AM EDT HILDA ([facility] er) [id number] Panic disorder Panic Disorder Problem 09/10/2019 12:00:00 AM EDT - 12/29/2019 12:00:00 AM EST HILDA ([facility] er) [id number] Procedure by method Procedure by Method Problem 0 09/10/2019 12:00:00 AM EDT - 12/11/2019 12:00:00 AM EST HILDA ([facility] er) [id number] Panic disorder Panic Disorder Problem 09/10/2019 12:00:00 AM EDT - 12/29/2019 12:00:00 AM EST HILDA ([facility] er) [id number] Procedure by method Procedure by Method Problem 0 09/10/2019 12:00:00 AM EDT - 12/11/2019 12:00:00 AM EST HILDA ([facility] er) [id number] Panic disorder Panic Disorder Problem 09/10/2019 12:00:00 AM EDT - 12/29/2019 12:00:00 AM EST HILDA ([facility] er) [id number] Procedure by method Procedure by Method Problem 0 09/10/2019 12:00:00 AM EDT - 12/11/2019 12:00:00 AM EST HILDA ([facility] er) [id number] Adjustment disorder with mixed anxiety a nd depressed mood Adjustment Disorder with Mixed Anxiety and Depressed Mood Problem 020 12:00:00 AM EDT - 06/22/2020 12:00:00 AM EDT HILDA ([facility] er) [id number] Panic disorder Panic Disorder Problem 09/10/2019 12:00:00 AM EDT - 12/29/2019 12:00:00 AM EST HILDA ([facility] er) [id number] Procedure by method Procedure by Method Problem 0 09/10/2019 12:00:00 AM EDT - 12/11/2019 12:00:00 AM EST HILDA ([facility] er) [id number] Adjustment disorder with mixed anxiety a nd depressed mood Adjustment Disorder with Mixed Anxiety and Depressed Mood Problem 020 12:00:00 AM EDT - 06/22/2020 12:00:00 AM EDT HILDA ([facility] er) [id number] Panic disorder Panic Disorder Problem 09/10/2019 12:00:00 AM EDT - 12/29/2019 12:00:00 AM EST HILDA ([facility] er) [id number] Procedure by method Procedure by Method Problem 0 09/10/2019 12:00:00 AM EDT - 12/11/2019 12:00:00 AM EST HILDA ([facility] er) [id number] Panic disorder Panic Disorder Problem 09/10/2019 12:00:00 AM EDT - 12/29/2019 12:00:00 AM EST HILDA ([facility] er) [id number] Procedure by method Procedure by Method Problem 0 09/10/2019 12:00:00 AM EDT - 12/11/2019 12:00:00 AM EST HILDA ([facility] er) [id number] Panic disorder Panic Disorder Problem 09/10/2019 12:00:00 AM EDT - 12/29/2019 12:00:00 AM EST HILDA ([facility] er) [id number] Procedure by method Procedure by Method Problem 0 09/10/2019 12:00:00 AM EDT - 12/11/2019 12:00:00 AM EST HILDA ([facility] er) [id number] Procedure by method Procedure by Method Problem 0 09/10/2019 12:00:00 AM EDT - 12/11/2019 12:00:00 AM EST HILDA ([facility] er) [id number] Procedure by method Procedure by Method Problem 0 09/10/2019 12:00:00 AM EDT - 12/11/2019 12:00:00 AM EST HILDA ([facility] er) [id number] Procedure by method Procedure by Method Problem 0 09/10/2019 12:00:00 AM EDT - 12/11/2019 12:00:00 AM EST HILDA ([facility] er) [id number] Procedure by method Procedure by Method Problem 0 09/10/2019 12:00:00 AM EDT - 12/11/2019 12:00:00 AM EST HILDA ([facility] er) [id number] Panic disorder Panic Disorder Problem 09/10/2019 12:00:00 AM EDT - 12/29/2019 12:00:00 AM EST HILDA ([facility] er) [id number] Procedure by method Procedure by Method Problem 0 09/10/2019 12:00:00 AM EDT - 12/11/2019 12:00:00 AM EST HILDA ([facility] er) [id number] Panic disorder Panic Disorder Problem 09/10/2019 12:00:00 AM EDT - 12/29/2019 12:00:00 AM EST HILDA ([facility] er) [id number] Procedure by method Procedure by Method Problem 0 09/10/2019 12:00:00 AM EDT - 12/11/2019 12:00:00 AM EST HILDA ([facility] er) [id number] Panic disorder Panic Disorder Problem 09/10/2019 12:00:00 AM EDT - 12/29/2019 12:00:00 AM EST HILDA ([facility] er) [id number] Procedure by method Procedure by Method Problem 0 09/10/2019 12:00:00 AM EDT - 12/11/2019 12:00:00 AM EST HILDA ([facility] er) [id number] Panic disorder Panic Disorder Problem 09/10/2019 12:00:00 AM EDT - 12/29/2019 12:00:00 AM EST HILDA ([facility] er) [id number] Procedure by method Procedure by Method Problem 0 09/10/2019 12:00:00 AM EDT - 12/11/2019 12:00:00 AM EST HILDA ([facility] er) [id number] Panic disorder Panic Disorder Problem 09/10/2019 12:00:00 AM EDT - 12/29/2019 12:00:00 AM EST HILDA ([facility] er) [id number] Procedure by method Procedure by Method Problem 0 09/10/2019 12:00:00 AM EDT - 12/11/2019 12:00:00 AM EST HILDA ([facility] er) [id number] Panic disorder Panic Disorder Problem 09/10/2019 12:00:00 AM EDT - 12/29/2019 12:00:00 AM EST HILDA ([facility] er) [id number] Procedure by method Procedure by Method Problem 0 09/10/2019 12:00:00 AM EDT - 12/11/2019 12:00:00 AM EST HILDA ([facility] er) [id number] Panic disorder Panic Disorder Problem 09/10/2019 12:00:00 AM EDT - 12/29/2019 12:00:00 AM EST HILDA ([facility] er) [id number] Procedure by method Procedure by Method Problem 0 09/10/2019 12:00:00 AM EDT - 12/11/2019 12:00:00 AM EST MOKANE ([facility] er) Surgeries/Procedures Procedure Description Date Indications Data Source(s) XTRNL ECG < 48 HR RECORDING 01/12/2020 12:00:00 AM EST MEDENT ([facility]) XTRNL ECG CONTINUOUS RHYTHM PHYS REVIEW&INTERPJ 2019 12:00:00 AM EST MEDENT ([facility]) CV STRS TST XERS&/OR RX CONT ECG PHYS SI&R 01/08/2020 12:00:00 AM EST MEDENT ([facility]) ECHO TTHRC R-T 2D W/WOM-MODE COMPL SPEC&COLR DOP 01/07 12:00:00 AM EST MEDENT ([facility]) ECG ROUTINE ECG W/LEAST 12 LDS W/I&R 01/07/2020 12:00: 00 AM EST MEDENT ([facility]) Results ID Date Data Source [id number] 04/29/2020 04:04:00 PM EDT MOKANE ([facility]) Name Value Range Interpretation Code Description Data Ellie rce(s) Supporting Document(s) istat HCT 45.0 % 38.0-51.0 Istat HCT MOKANE ([facility]) istat glucose 94 mg/dL 70-105 Istat Glucose HILDA ( [facility]) istat sodium 139 mEq/L 136-145 Istat Sodium HILDA (No [facility]) istat chloride 99 mEq/L 98-109 Istat Chloride HILDA ([facility]) istat potassium 4.0 mEq/L 3.5-5.1 Istat Potassium ATHE NA ([facility]) istat Ca++ 5.1 mg/dL 4.5-5.3 Istat Ca++ MOKANE ([facility]) istat creatinine 1.1 mg/dL 0.6-1.3 Istat Creatinine AT SHANI ([facility]) istat BUN 19 mg/dL 8-26 Istat BUN HILDA ([facility]) istat CO2 29.0 mm/L 23.0-27.0 Above high normal Istat CO2 HILDA ([facility]) ID Date Data Source [id number] 04/29/2020 04:04:00 PM EDT HILDA ([facility]) Name Value Range Interpretation Code Description Data Ellie rce(s) Supporting Document(s) istat glucose 94 mg/dL 70-105 Istat Glucose HILDA ( [facility]) istat HCT 45.0 % 38.0-51.0 Istat HCT HILDA ([facility]) istat Ca++ 5.1 mg/dL 4.5-5.3 Istat Ca++ HILDA ([facility]) istat chloride 99 mEq/L 98-109 Istat Chloride HILDA ([facility]) istat sodium 139 mEq/L 136-145 Istat Sodium HILDA ([facility]) istat potassium 4.0 mEq/L 3.5-5.1 Istat Potassium ATHE NA ([facility]) istat BUN 19 mg/dL 8-26 Istat BUN HILDA ([facility]) istat CO2 29.0 mm/L 23.0-27.0 Above high normal Istat CO2 HILDA ([facility]) istat creatinine 1.1 mg/dL 0.6-1.3 Istat Creatinine AT SHANI ([facility]) ID Date Data Source [id number] 04/29/2020 04:04:00 PM EDT HILDA ([facility]) Name Value Range Interpretation Code Description Data Ellie rce(s) Supporting Document(s) istat HCT 45.0 % 38.0-51.0 Istat HCT HILDA ([facility]) istat glucose 94 mg/dL 70-105 Istat Glucose HILDA ( [facility]) istat Ca++ 5.1 mg/dL 4.5-5.3 Istat Ca++ HILDA ([facility]) istat sodium 139 mEq/L 136-145 Istat Sodium HILDA ([facility]) istat potassium 4.0 mEq/L 3.5-5.1 Istat Potassium ATHE NA ([facility]) istat BUN 19 mg/dL 8-26 Istat BUN HILDA ([facility]) istat chloride 99 mEq/L 98-109 Istat Chloride HILDA ([facility]) istat CO2 29.0 mm/L 23.0-27.0 Above high normal Istat CO2 HILDA ([facility]) istat creatinine 1.1 mg/dL 0.6-1.3 Istat Creatinine AT [facility]) ID Date Data Source [id number] 04/29/2020 04:04:00 PM EDT HILDA ([facility]) Name Value Range Interpretation Code Description Data Ellie rce(s) Supporting Document(s) istat HCT 45.0 % 38.0-51.0 Istat HCT HILDA ([facility]) istat glucose 94 mg/dL 70-105 Istat Glucose HILDA ( [facility]) istat sodium 139 mEq/L 136-145 Istat Sodium HILDA ([facility]) istat potassium 4.0 mEq/L 3.5-5.1 Istat Potassium ATHE NA ([facility]) istat Ca++ 5.1 mg/dL 4.5-5.3 Istat Ca++ HILDA ([facility]) istat CO2 29.0 mm/L 23.0-27.0 Above high normal Istat CO2 HILDA ([facility]) istat chloride 99 mEq/L 98-109 Istat Chloride HILDA ([facility]) istat BUN 19 mg/dL 8-26 Istat BUN HILDA ([facility]) istat creatinine 1.1 mg/dL 0.6-1.3 Istat Creatinine AT [facility]) ID Date Data Source [id number] 04/29/2020 04:04:00 PM EDT [facility]) Name Value Range Interpretation Code Description Data Ellie rce(s) Supporting Document(s) istat HCT 45.0 % 38.0-51.0 Istat HCT MOKANE ([facility]) istat potassium 4.0 mEq/L 3.5-5.1 Istat Potassium ATH NA ([facility]) istat glucose 94 mg/dL 70-105 Istat Glucose MOKANE ( [facility]) istat sodium 139 mEq/L 136-145 Istat Sodium M[place]ANE ([facility]) istat CO2 29.0 mm/L 23.0-27.0 Above high normal Istat CO2 [place] ([facility]) istat chloride 99 mEq/L 98-109 Istat Chloride M[place]ANE ([facility]) istat Ca++ 5.1 mg/dL 4.5-5.3 Istat Ca++ M[place] ([facility]) istat creatinine 1.1 mg/dL 0.6-1.3 Istat Creatinine AT [facility] ([facility]) istat BUN 19 mg/dL 8-26 Istat BUN [place]ANE ([facility]) ID Date Data Source [id number] 04/29/2020 04:04:00 PM EDT MOKANE ([facility]) Name Value Range Interpretation Code Description Data Ellie rce(s) Supporting Document(s) istat HCT 45.0 % 38.0-51.0 Istat HCT HILDA ([facility]) istat potassium 4.0 mEq/L 3.5-5.1 Istat Potassium ATHE NA ([facility]) istat glucose 94 mg/dL 70-105 Istat Glucose MOKANE ( [facility]) istat sodium 139 mEq/L 136-145 Istat Sodium HILDA (No [facility]) istat CO2 29.0 mm/L 23.0-27.0 Above high normal Istat CO2 HILDA ([facility]) istat Ca++ 5.1 mg/dL 4.5-5.3 Istat Ca++ HILDA ([facility]) istat chloride 99 mEq/L 98-109 Istat Chloride HILDA ([facility]) istat creatinine 1.1 mg/dL 0.6-1.3 Istat Creatinine AT [facility] ([facility]) istat BUN 19 mg/dL 8-26 Istat BUN HILDA ([facility]) ID Date Data Source [id number] 04/29/2020 04:04:00 PM EDT MOKANE ([facility]) Name Value Range Interpretation Code Description Data Ellie rce(s) Supporting Document(s) istat HCT 45.0 % 38.0-51.0 Istat HCT HILDA ([facility]) istat Ca++ 5.1 mg/dL 4.5-5.3 Istat Ca++ HILDA ([facility]) istat glucose 94 mg/dL 70-105 Istat Glucose HILDA ( [facility]) istat sodium 139 mEq/L 136-145 Istat Sodium HILDA ([facility]) istat potassium 4.0 mEq/L 3.5-5.1 Istat Potassium ATHE NA ([facility]) istat chloride 99 mEq/L 98-109 Istat Chloride HILDA ([facility]) istat BUN 19 mg/dL 8-26 Istat BUN HILDA ([facility]) istat CO2 29.0 mm/L 23.0-27.0 Above high normal Istat CO2 HILDA ([facility]) istat creatinine 1.1 mg/dL 0.6-1.3 Istat Creatinine AT [facility]) ID Date Data Source [id number] 04/29/2020 04:04:00 PM EDT MOKANE ([facility]) Name Value Range Interpretation Code Description Data Ellie rce(s) Supporting Document(s) istat HCT 45.0 % 38.0-51.0 Istat HCT HILDA ([facility]) istat glucose 94 mg/dL 70-105 Istat Glucose HILDA ( [facility]) istat sodium 139 mEq/L 136-145 Istat Sodium HILDA (No [facility]) istat potassium 4.0 mEq/L 3.5-5.1 Istat Potassium ATHE NA ([facility]) istat Ca++ 5.1 mg/dL 4.5-5.3 Istat Ca++ M[place]ANE ([facility]) istat CO2 29.0 mm/L 23.0-27.0 Above high normal Istat CO2 [place] ([facility]) istat chloride 99 mEq/L 98-109 Istat Chloride HILDA ([facility]) istat BUN 19 mg/dL 8-26 Istat BUN HILDA ([facility]) istat creatinine 1.1 mg/dL 0.6-1.3 Istat Creatinine AT [facility] ([facility]) ID Date Data Source [id number] 04/29/2020 04:04:00 PM EDT HILDA ([facility]) Name Value Range Interpretation Code Description Data Ellie rce(s) Supporting Document(s) istat HCT 45.0 % 38.0-51.0 Istat HCT HILDA ([facility]) istat sodium 139 mEq/L 136-145 Istat Sodium HILDA ([facility]) istat glucose 94 mg/dL 70-105 Istat Glucose HILDA ( [facility]) istat potassium 4.0 mEq/L 3.5-5.1 Istat Potassium ATHE NA ([facility]) istat Ca++ 5.1 mg/dL 4.5-5.3 Istat Ca++ HILDA ([facility]) istat CO2 29.0 mm/L 23.0-27.0 Above high normal Istat CO2 HILDA ([facility]) istat chloride 99 mEq/L 98-109 Istat Chloride HILDA ([facility]) istat creatinine 1.1 mg/dL 0.6-1.3 Istat Creatinine AT [facility] ([facility]) istat BUN 19 mg/dL 8-26 Istat BUN HILDA ([facility]) ID Date Data Source [id number] 04/29/2020 03:56:00 PM EDT [facility]) Name Value Range Interpretation Code Description Data Ellie rce(s) Supporting Document(s) glucose, fasting 97 mg/dL 70-100 Glucose, Fasting AT [facility]) glomerular filtration rate > 60.0 >60 Glomerula r Filtration Rate HILDA ([facility]) blood urea nitrogen 19 mg/dL 7-18 Above high normal Blood Ure a Nitrogen HILDA ([facility]) sodium level 137 mEq/L 136-145 Sodium Level HILDA ([facility]) creatinine for GFR 1.12 mg/dL 0.70-1.30 Creatinine for GF R HILDA ([facility]) chloride level 103 mEq/L 98-107 Chloride Level M[place]ANE ([facility]) carbon dioxide level 31 mEq/L 21-32 Carbon Dioxide Level HILDA ([facility]) potassium serum 4.1 mEq/L 3.5-5.1 Potassium Serum ATHE NA ([facility]) anion gap 3 mEq/L 8-16 Below low normal Anion Gap HILDA ( [facility]) calcium level 9.3 mg/dL 8.5-10.1 Calcium Level [facility]) ID Date Data Source [id number] 04/29/2020 03:56:00 PM EDT [facility]) Name Value Range Interpretation Code Description Data Ellie rce(s) Supporting Document(s) ALT/SGPT 25 U/L 12-78 ALT/SGPT HILDA ([facility]) AST/SGOT 13 U/L 7-37 AST/SGOT HILDA ([facility]) bilirubin,total 0.5 mg/dL 0.2-1.0 Bilirubin,total AT[facility] ([facility]) bilirubin,direct 0.2 mg/dL 0.0-0.2 Bilirubin,direct AT [facility] ([facility]) total protein 7.0 gm/dL 6.4-8.2 Total Protein [facility]DA ( [facility]) alkaline phosphatase 76 U/L 45-117 Alkaline Phosph atase [facility]DA ([facility]) albumin 4.0 gm/dL 3.2-5.2 Albumin [facility] ([facility]) albumin/globulin ratio Albumin/globu wu Ratio [facility] ([facility]) ID Date Data Source [id number] 04/29/2020 03:56:00 PM EDT [facility] ([facility]) Name Value Range Interpretation Code Description Data Ellie rce(s) Supporting Document(s) CK-mb value mass 1.1 NG/mL <3.6 CK-mb Value Mass AT [facility] ([facility]) CPK creatine phosphokinase 142 U/L 39-308 CPK Creat ine Phosphokinase [facility]DA ([facility]) troponin I < 0.02 < 0.10 Troponin I [facility] ([facility]) mb/CK relative index < or =4 mb/CK Relative Index [facility] ([facility]) ID Date Data Source [id number] 04/29/2020 03:56:00 PM EDT [place] ([facility]) Name Value Range Interpretation Code Description Data Ellie rce(s) Supporting Document(s) partial thromboplastin time 30.8 seconds 24.2-38.5 [facility] ID Date Data Source [id number] 04/29/2020 03:56:00 PM EDT [facility]ILDA ([facility]) Name Value Range Interpretation Code Description Data Ellie rce(s) Supporting Document(s) prothrombin time 13.2 seconds 12.5-14.3 Prothrombin Time [facility] ([facility]) INR Inr [facility] ([facility]) ID Date Data Source [id number] 04/29/2020 03:56:00 PM EDT [facility]ILDA ([facility]) Name Value Range Interpretation Code Description Data Ellie rce(s) Supporting Document(s) white blood count 6.3 10 4.0-10.0 White Blood Count [facility] ([facility]) red blood count 5.45 10 4.30-6.10 Red Blood Count [facility] ([facility]) hematocrit 45.6 % 42.0-52.0 Hematocrit [facility] ([facility]) hemoglobin 15.1 g/dL 13.5-17.5 Hemoglobin [facility] ([facility]) mean corpuscular volume 83.7 fL 80.0-96.0 Mean Corpusc ular Volume [facility] ([facility]) mean corpuscular hemoglobin 27.7 pg 27.0-33.0 Mean Cor puscular Hemoglobin [facility] ([facility]) red cell distribution width 13.5 % 11.5-14.5 Red Cell Distribution Width [facility] ([facility]) mean corpuscular HGB conc 33.1 g/dL 32.0-36.5 Mean Corpu scular HGB Conc [facility] ([facility]) platelet count, automated 230 10 150-450 Platelet C ount, Automated [facility] ([facility]) mono % 9.6 % 2.0-8.0 Above high normal [place] % [facility] ([facility]) neutrophils % 53.2 % 36.0-66.0 Neutrophils % [facility]DA ( [facility]) lymph % 33.6 % 24.0-44.0 Lymph % [facility] ([facility]) immature granulocyte % 0.3 % 0-3.0 Immature Gran ulocyte % [facility] ([facility]) eos % 2.7 % 0.0-3.0 Eos % [facility] ([facility]) baso % 0.6 % 0.0-1.0 Baso % [facility] ([facility]) lymph # 2.1 10 1.5-5.0 Lymph # [facility] ([facility]) neutrophils # 3.4 10 1.5-8.5 Neutrophils # [facility]DA ( [facility]) nucleated red blood cell % 0.0 % 0-0 Nucleated Red Blood Cell % [facility] ([facility]) mono # 0.6 10 0.0-0.8 [place] # [facility]DA ([facility]) eos # 0.2 10 0.0-0.5 Eos # [facility] ([facility]) baso # 0.0 10 0.0-0.2 Baso # [facility] ([facility]) ID Date Data Source [id number] 04/29/2020 03:56:00 PM EDT [place] ([facility]) Name Value Range Interpretation Code Description Data Ellie rce(s) Supporting Document(s) creatinine for GFR 1.12 mg/dL 0.70-1.30 Creatinine for GF R [place] ([facility]) glucose, fasting 97 mg/dL 70-100 Glucose, Fasting AT [facility]) blood urea nitrogen 19 mg/dL 7-18 Above high normal Blood Ure a Nitrogen [facility]DA ([facility]) glomerular filtration rate > 60.0 >60 Glomerula r Filtration Rate [facility]DA ([facility]) carbon dioxide level 31 mEq/L 21-32 Carbon Dioxide Level [facility]DA ([facility]) chloride level 103 mEq/L 98-107 Chloride Level [facility] ([facility]) anion gap 3 mEq/L 8-16 Below low normal Anion Gap [facility]DA ( [facility]) potassium serum 4.1 mEq/L 3.5-5.1 Potassium Serum ATHE NA ([facility]) sodium level 137 mEq/L 136-145 Sodium Level [facility]DA ([facility]) calcium level 9.3 mg/dL 8.5-10.1 Calcium Level [facility]DA ( [facility]) ID Date Data Source [id number] 04/29/2020 03:56:00 PM EDT [facility] ([facility]) Name Value Range Interpretation Code Description Data Ellie rce(s) Supporting Document(s) ALT/SGPT 25 U/L 12-78 ALT/SGPT [facility] ([facility]) alkaline phosphatase 76 U/L 45-117 Alkaline Phosph atase [facility] ([facility]) AST/SGOT 13 U/L 7-37 AST/SGOT [facility] ([facility]) bilirubin,total 0.5 mg/dL 0.2-1.0 Bilirubin,total [facility] ([facility]) bilirubin,direct 0.2 mg/dL 0.0-0.2 Bilirubin,direct AT [facility] ([facility]) albumin/globulin ratio Albumin/globu wu Ratio [facility]DA ([facility]) albumin 4.0 gm/dL 3.2-5.2 Albumin [facility] ([facility]) total protein 7.0 gm/dL 6.4-8.2 Total Protein [facility] ( [facility]) ID Date Data Source [id number] 04/29/2020 03:56:00 PM EDT [facility] ([facility]) Name Value Range Interpretation Code Description Data Ellie rce(s) Supporting Document(s) CK-mb value mass 1.1 NG/mL <3.6 CK-mb Value Mass AT [facility] ([facility]) CPK creatine phosphokinase 142 U/L 39-308 CPK Creat ine Phosphokinase [facility] ([facility]) mb/CK relative index < or =4 mb/CK Relative Index [facility] ([facility]) troponin I < 0.02 < 0.10 Troponin I [facility] ([facility]) ID Date Data Source [id number] 04/29/2020 03:56:00 PM EDT [facility] ([facility]) Name Value Range Interpretation Code Description Data Ellie rce(s) Supporting Document(s) partial thromboplastin time 30.8 seconds 24.2-38.5 Partial Thromboplastin Time [facility] ([facility]) ID Date Data Source [id number] 04/29/2020 03:56:00 PM EDT [facility] ([facility]) Name Value Range Interpretation Code Description Data Ellie rce(s) Supporting Document(s) prothrombin time 13.2 seconds 12.5-14.3 Prothrombin Time [facility] ([facility]) INR Inr [facility] ([facility]) ID Date Data Source [id number] 04/29/2020 03:56:00 PM EDT [facility] ([facility]) Name Value Range Interpretation Code Description Data Ellie rce(s) Supporting Document(s) white blood count 6.3 10 4.0-10.0 White Blood Count [facility] ([facility]) hematocrit 45.6 % 42.0-52.0 Hematocrit [facility] ([facility]) red blood count 5.45 10 4.30-6.10 Red Blood Count [facility] ([facility]) hemoglobin 15.1 g/dL 13.5-17.5 Hemoglobin [facility] ([facility]) mean corpuscular volume 83.7 fL 80.0-96.0 Mean Corpusc ular Volume [facility]DA ([facility]) mean corpuscular HGB conc 33.1 g/dL 32.0-36.5 Mean Corpu scular HGB Conc [facility] ([facility]) mean corpuscular hemoglobin 27.7 pg 27.0-33.0 Mean Cor puscular Hemoglobin [facility] ([facility]) red cell distribution width 13.5 % 11.5-14.5 Red Cell Distribution Width [facility] ([facility]) platelet count, automated 230 10 150-450 Platelet C ount, Automated [facility] ([facility]) neutrophils % 53.2 % 36.0-66.0 Neutrophils % [facility]DA ( [facility]) mono % 9.6 % 2.0-8.0 Above high normal [place] % [facility]DA ([facility]) baso % 0.6 % 0.0-1.0 Baso % [facility] ([facility]) eos % 2.7 % 0.0-3.0 Eos % [facility] ([facility]) lymph % 33.6 % 24.0-44.0 Lymph % [facility] ([facility]) neutrophils # 3.4 10 1.5-8.5 Neutrophils # [facility]DA ( [facility]) nucleated red blood cell % 0.0 % 0-0 Nucleated Red Blood Cell % [facility]DA ([facility]) immature granulocyte % 0.3 % 0-3.0 Immature Gran ulocyte % [place] ([facility]) lymph # 2.1 10 1.5-5.0 Lymph # [place] ([facility]) baso # 0.0 10 0.0-0.2 Baso # [facility] ([facility]) mono # 0.6 10 0.0-0.8 [place] # [facility]DA ([facility]) eos # 0.2 10 0.0-0.5 Eos # [facility] ([facility]) ID Date Data Source [id number] 04/29/2020 03:56:00 PM EDT [place] ([facility]) Name Value Range Interpretation Code Description Data Ellie rce(s) Supporting Document(s) glomerular filtration rate > 60.0 >60 [place]omer[place] r Filtration Rate [place] ([facility]) creatinine for GFR 1.12 mg/dL 0.70-1.30 Creatinine for GF R [place] ([facility]) glucose, fasting 97 mg/dL 70-100 Glucose, Fasting AT [facility]) blood urea nitrogen 19 mg/dL 7-18 Above high normal Blood Ure a Nitrogen [facility]DA ([facility]) sodium level 137 mEq/L 136-145 Sodium Level H[facility]DA ([facility]) carbon dioxide level 31 mEq/L 21-32 Carbon Dioxide Level [place] ([facility]) anion gap 3 mEq/L 8-16 Below low normal Anion Gap [place] ( [facility]) potassium serum 4.1 mEq/L 3.5-5.1 Potassium Serum ATHE NA ([facility]) chloride level 103 mEq/L 98-107 Chloride Level [facility] ([facility]) calcium level 9.3 mg/dL 8.5-10.1 Calcium Level [facility] ( [facility]) ID Date Data Source [id number] 04/29/2020 03:56:00 PM EDT [facility]DA ([facility]) Name Value Range Interpretation Code Description Data Ellie rce(s) Supporting Document(s) AST/SGOT 13 U/L 7-37 AST/SGOT [facility] ([facility]) ALT/SGPT 25 U/L 12-78 ALT/SGPT [facility] ([facility]) total protein 7.0 gm/dL 6.4-8.2 Total Protein [facility] ( [facility]) bilirubin,total 0.5 mg/dL 0.2-1.0 Bilirubin,total AT[facility] ([facility]) bilirubin,direct 0.2 mg/dL 0.0-0.2 Bilirubin,direct AT [facility] ([facility]) alkaline phosphatase 76 U/L 45-117 Alkaline Phosph atase [facility]DA ([facility]) albumin 4.0 gm/dL 3.2-5.2 Albumin [facility] ([facility]) albumin/globulin ratio Albumin/globu wu Ratio [facility]DA ([facility]) ID Date Data Source [id number] 04/29/2020 03:56:00 PM EDT [facility] ([facility]) Name Value Range Interpretation Code Description Data Ellie rce(s) Supporting Document(s) CK-mb value mass 1.1 NG/mL <3.6 CK-mb Value Mass AT [facility] ([facility]) CPK creatine phosphokinase 142 U/L 39-308 CPK Creat ine Phosphokinase [facility] ([facility]) troponin I < 0.02 < 0.10 Troponin I [facility] ([facility]) mb/CK relative index < or =4 mb/CK Relative Index [facility] ([facility]) ID Date Data Source [id number] 04/29/2020 03:56:00 PM EDT [facility] ([facility]) Name Value Range Interpretation Code Description Data Ellie rce(s) Supporting Document(s) partial thromboplastin time 30.8 seconds 24.2-38.5 Partial Thromboplastin Time [facility] ([facility]) ID Date Data Source [id number] 04/29/2020 03:56:00 PM EDT [facility]DA ([facility]) Name Value Range Interpretation Code Description Data Ellie rce(s) Supporting Document(s) INR Inr [facility] ([facility]) prothrombin time 13.2 seconds 12.5-14.3 Prothrombin Time [facility] ([facility]) ID Date Data Source [id number] 04/29/2020 03:56:00 PM EDT [facility]DA ([facility]) Name Value Range Interpretation Code Description Data Ellie rce(s) Supporting Document(s) red blood count 5.45 10 4.30-6.10 Red Blood Count AT[facility] ([facility]) white blood count 6.3 10 4.0-10.0 White Blood Count [facility] ([facility]) hemoglobin 15.1 g/dL 13.5-17.5 Hemoglobin [facility] ([facility]) hematocrit 45.6 % 42.0-52.0 Hematocrit [facility] ([facility]) mean corpuscular volume 83.7 fL 80.0-96.0 Mean Corpusc ular Volume [facility]DA ([facility]) platelet count, automated 230 10 150-450 Platelet C ount, Automated [facility] ([facility]) red cell distribution width 13.5 % 11.5-14.5 Red Cell Distribution Width [facility] ([facility]) mean corpuscular hemoglobin 27.7 pg 27.0-33.0 Mean Cor puscular Hemoglobin [facility]DA ([facility]) mean corpuscular HGB conc 33.1 g/dL 32.0-36.5 Mean Corpu scular HGB Conc [facility]DA ([facility]) neutrophils % 53.2 % 36.0-66.0 Neutrophils % [facility]DA ( [facility]) lymph % 33.6 % 24.0-44.0 Lymph % [facility] ([facility]) mono % 9.6 % 2.0-8.0 Above high normal [place] % [facility]DA ([facility]) eos % 2.7 % 0.0-3.0 Eos % [facility] ([facility]) baso % 0.6 % 0.0-1.0 Baso % [place] ([facility]) immature granulocyte % 0.3 % 0-3.0 Immature Gran ulocyte % [place] ([facility]) neutrophils # 3.4 10 1.5-8.5 Neutrophils # [facility]DA ( [facility]) nucleated red blood cell % 0.0 % 0-0 Nucleated Red Blood Cell % [facility] ([facility]) mono # 0.6 10 0.0-0.8 [place] # [facility]DA ([facility]) baso # 0.0 10 0.0-0.2 Baso # [facility] ([facility]) lymph # 2.1 10 1.5-5.0 Lymph # [facility] ([facility]) eos # 0.2 10 0.0-0.5 Eos # [facility] ([facility]) ID Date Data Source [id number] 04/29/2020 03:56:00 PM EDT [place] ([facility]) Name Value Range Interpretation Code Description Data Ellie rce(s) Supporting Document(s) CPK creatine phosphokinase 142 U/L 39-308 CPK Creat ine Phosphokinase [facility]DA ([facility]) mb/CK relative index < or =4 mb/CK Relative Index [facility] ([facility]) CK-mb value mass 1.1 NG/mL <3.6 CK-mb Value Mass AT [facility]) troponin I < 0.02 < 0.10 Troponin I [facility] ([facility]) ID Date Data Source [id number] 04/29/2020 03:56:00 PM EDT [facility] ([facility]) Name Value Range Interpretation Code Description Data Ellie rce(s) Supporting Document(s) partial thromboplastin time 30.8 seconds 24.2-38.5 Partial Thromboplastin Time [facility] ([facility]) ID Date Data Source [id number] 04/29/2020 03:56:00 PM EDT [facility] ([facility]) Name Value Range Interpretation Code Description Data Ellie rce(s) Supporting Document(s) prothrombin time 13.2 seconds 12.5-14.3 Prothrombin Time [facility] ([facility]) INR Inr [facility] ([facility]) ID Date Data Source [id number] 04/29/2020 03:56:00 PM EDT [facility] ([facility]) Name Value Range Interpretation Code Description Data Ellie rce(s) Supporting Document(s) white blood count 6.3 10 4.0-10.0 White Blood Count [facility] ([facility]) red blood count 5.45 10 4.30-6.10 Red Blood Count AT[facility] ([facility]) hemoglobin 15.1 g/dL 13.5-17.5 Hemoglobin [facility] ([facility]) mean corpuscular volume 83.7 fL 80.0-96.0 Mean Corpusc ular Volume [facility] ([facility]) mean corpuscular hemoglobin 27.7 pg 27.0-33.0 Mean Cor puscular Hemoglobin [facility] ([facility]) hematocrit 45.6 % 42.0-52.0 Hematocrit [facility] ([facility]) red cell distribution width 13.5 % 11.5-14.5 Red Cell Distribution Width [facility] ([facility]) mean corpuscular HGB conc 33.1 g/dL 32.0-36.5 Mean Corpu scular HGB Conc [facility] ([facility]) platelet count, automated 230 10 150-450 Platelet C ount, Automated [place] ([facility]) mono % 9.6 % 2.0-8.0 Above high normal [place] % [facility] ([facility]) lymph % 33.6 % 24.0-44.0 Lymph % [place] ([facility]) neutrophils % 53.2 % 36.0-66.0 Neutrophils % [place] ( [facility]) eos % 2.7 % 0.0-3.0 Eos % [place] ([facility]) baso % 0.6 % 0.0-1.0 Baso % [place] ([facility]) immature granulocyte % 0.3 % 0-3.0 Immature Gran ulocyte % [facility] ([facility]) nucleated red blood cell % 0.0 % 0-0 Nucleated Red Blood Cell % [facility] ([facility]) neutrophils # 3.4 10 1.5-8.5 Neutrophils # [place] ( [facility]) lymph # 2.1 10 1.5-5.0 Lymph # [place] ([facility]) mono # 0.6 10 0.0-0.8 [place] # [facility] ([facility]) eos # 0.2 10 0.0-0.5 Eos # [place] ([facility]) baso # 0.0 10 0.0-0.2 Baso # [place] ([facility]) ID Date Data Source [id number] 04/29/2020 03:56:00 PM EDT [place] ([facility]) Name Value Range Interpretation Code Description Data Ellie rce(s) Supporting Document(s) blood urea nitrogen 19 mg/dL 7-18 Above high normal Blood Ure a Nitrogen [place] ([facility]) creatinine for GFR 1.12 mg/dL 0.70-1.30 Creatinine for GF R [place] ([facility]) glucose, fasting 97 mg/dL 70-100 Glucose, Fasting AT [facility]) chloride level 103 mEq/L 98-107 Chloride Level [place] ([facility]) sodium level 137 mEq/L 136-145 Sodium Level H[facility]DA ([facility]) potassium serum 4.1 mEq/L 3.5-5.1 Potassium Serum ATHE NA ([facility]) carbon dioxide level 31 mEq/L 21-32 Carbon Dioxide Level [facility] ([facility]) glomerular filtration rate > 60.0 >60 [place] r Filtration Rate [facility] ([facility]) calcium level 9.3 mg/dL 8.5-10.1 Calcium Level [facility] ( [facility]) anion gap 3 mEq/L 8-16 Below low normal Anion Gap [facility] ( [facility]) ID Date Data Source [id number] 04/29/2020 03:56:00 PM EDT [facility] ([facility]) Name Value Range Interpretation Code Description Data Ellie rce(s) Supporting Document(s) AST/SGOT 13 U/L 7-37 AST/SGOT [facility] ([facility]) bilirubin,direct 0.2 mg/dL 0.0-0.2 Bilirubin,direct AT [facility]) ALT/SGPT 25 U/L 12-78 ALT/SGPT [facility] ([facility]) bilirubin,total 0.5 mg/dL 0.2-1.0 Bilirubin,total AT[facility] ([facility]) alkaline phosphatase 76 U/L 45-117 Alkaline Phosph atase [facility] ([facility]) albumin/globulin ratio Albumin/globu wu Ratio [facility] ([facility]) albumin 4.0 gm/dL 3.2-5.2 Albumin [facility] ([facility]) total protein 7.0 gm/dL 6.4-8.2 Total Protein [facility] ( [facility]) ID Date Data Source [id number] 04/29/2020 03:56:00 PM EDT [facility] Name Value Range Interpretation Code Description Data Ellie rce(s) Supporting Document(s) mb/CK relative index < or =4 mb/CK Relative Index [facility]DA ([facility]) CPK creatine phosphokinase 142 U/L 39-308 CPK Creat ine Phosphokinase [facility] ([facility]) CK-mb value mass 1.1 NG/mL <3.6 CK-mb Value Mass AT [facility] ([facility]) troponin I < 0.02 < 0.10 Troponin I [facility] ([facility]) ID Date Data Source [id number] 04/29/2020 03:56:00 PM EDT [place] ([facility]) Name Value Range Interpretation Code Description Data Ellie rce(s) Supporting Document(s) partial thromboplastin time 30.8 seconds 24.2-38.5 Partial Thromboplastin Time [facility] ([facility]) ID Date Data Source [id number] 04/29/2020 03:56:00 PM EDT [facility] ([facility]) Name Value Range Interpretation Code Description Data Ellie rce(s) Supporting Document(s) prothrombin time 13.2 seconds 12.5-14.3 Prothrombin Time [facility] ([facility]) INR Inr [facility] ([facility]) ID Date Data Source [id number] 04/29/2020 03:56:00 PM EDT [facility] ([facility]) Name Value Range Interpretation Code Description Data Ellie rce(s) Supporting Document(s) white blood count 6.3 10 4.0-10.0 White Blood Count [facility] ([facility]) hemoglobin 15.1 g/dL 13.5-17.5 Hemoglobin [facility] ([facility]) red blood count 5.45 10 4.30-6.10 Red Blood Count ATHE NA ([facility]) hematocrit 45.6 % 42.0-52.0 Hematocrit [facility] ([facility]) mean corpuscular hemoglobin 27.7 pg 27.0-33.0 Mean Cor puscular Hemoglobin [facility] ([facility]) mean corpuscular volume 83.7 fL 80.0-96.0 Mean Corpusc ular Volume [place] ([facility]) red cell distribution width 13.5 % 11.5-14.5 Red Cell Distribution Width [facility] ([facility]) platelet count, automated 230 10 150-450 Platelet C ount, Automated [place] ([facility]) mean corpuscular HGB conc 33.1 g/dL 32.0-36.5 Mean Corpu scular HGB Conc [facility] ([facility]) mono % 9.6 % 2.0-8.0 Above high normal [place] % [facility] ([facility]) lymph % 33.6 % 24.0-44.0 Lymph % [facility] ([facility]) neutrophils % 53.2 % 36.0-66.0 Neutrophils % [facility] ( [facility]) immature granulocyte % 0.3 % 0-3.0 Immature Gran ulocyte % [facility] ([facility]) eos % 2.7 % 0.0-3.0 Eos % [facility] ([facility]) baso % 0.6 % 0.0-1.0 Baso % [facility] ([facility]) neutrophils # 3.4 10 1.5-8.5 Neutrophils # [place] ( [facility]) nucleated red blood cell % 0.0 % 0-0 Nucleated Red Blood Cell % [facility] ([facility]) mono # 0.6 10 0.0-0.8 [place] # [facility] ([facility]) lymph # 2.1 10 1.5-5.0 Lymph # [facility] ([facility]) eos # 0.2 10 0.0-0.5 Eos # [facility] ([facility]) baso # 0.0 10 0.0-0.2 Baso # [facility] ([facility]) ID Date Data Source [id number] 04/29/2020 03:56:00 PM EDT [place] ([facility]) Name Value Range Interpretation Code Description Data Ellie rce(s) Supporting Document(s) glucose, fasting 97 mg/dL 70-100 Glucose, Fasting AT [facility] ([facility]) creatinine for GFR 1.12 mg/dL 0.70-1.30 Creatinine for GF R [facility] ([facility]) glomerular filtration rate > 60.0 >60 Glomerula r Filtration Rate HILDA ([facility]) blood urea nitrogen 19 mg/dL 7-18 Above high normal Blood Ure a Nitrogen HILDA ([facility]) sodium level 137 mEq/L 136-145 Sodium Level HILDA (No [facility]) chloride level 103 mEq/L 98-107 Chloride Level HILDA ([facility]) potassium serum 4.1 mEq/L 3.5-5.1 Potassium Serum ATHE NA ([facility]) calcium level 9.3 mg/dL 8.5-10.1 Calcium Level HILDA ( [facility]) carbon dioxide level 31 mEq/L 21-32 Carbon Dioxide Level HILDA ([facility]) anion gap 3 mEq/L 8-16 Below low normal Anion Gap HILDA ( [facility]) ID Date Data Source [id number] 04/29/2020 03:56:00 PM EDT HILDA ([facility]) Name Value Range Interpretation Code Description Data Ellie rce(s) Supporting Document(s) AST/SGOT 13 U/L 7-37 AST/SGOT [facility] ([facility]) ALT/SGPT 25 U/L 12-78 ALT/SGPT HILDA ([facility]) bilirubin,direct 0.2 mg/dL 0.0-0.2 Bilirubin,direct AT [facility]) alkaline phosphatase 76 U/L 45-117 Alkaline Phosph atase HILDA ([facility]) bilirubin,total 0.5 mg/dL 0.2-1.0 Bilirubin,total ATHE NA ([facility]) albumin 4.0 gm/dL 3.2-5.2 Albumin HILDA ([facility]) total protein 7.0 gm/dL 6.4-8.2 Total Protein HILDA ( [facility]) albumin/globulin ratio Albumin/globu wu Ratio HILDA ([facility]) ID Date Data Source [id number] 04/29/2020 03:56:00 PM EDT [facility]ILDA ([facility]) Name Value Range Interpretation Code Description Data Ellie rce(s) Supporting Document(s) CPK creatine phosphokinase 142 U/L 39-308 CPK Creat ine Phosphokinase HILDA ([facility]) mb/CK relative index < or =4 mb/CK Relative Index [facility]ILDA ([facility]) troponin I < 0.02 < 0.10 Troponin I [facility]DA ([facility]) CK-mb value mass 1.1 NG/mL <3.6 CK-mb Value Mass AT SHANI ([facility]) ID Date Data Source [id number] 04/29/2020 03:56:00 PM EDT HILDA ([facility]) Name Value Range Interpretation Code Description Data Ellie rce(s) Supporting Document(s) partial thromboplastin time 30.8 seconds 24.2-38.5 Partial Thromboplastin Time [facility]DA ([facility]) ID Date Data Source [id number] 04/29/2020 03:56:00 PM EDT HILDA ([facility]) Name Value Range Interpretation Code Description Data Ellie rce(s) Supporting Document(s) INR Inr [facility]DA ([facility]) prothrombin time 13.2 seconds 12.5-14.3 Prothrombin Time [facility] ([facility]) ID Date Data Source [id number] 04/29/2020 03:56:00 PM EDT HILDA ([facility]) Name Value Range Interpretation Code Description Data Ellie rce(s) Supporting Document(s) white blood count 6.3 10 4.0-10.0 White Blood Count H[facility]DA ([facility]) red blood count 5.45 10 4.30-6.10 Red Blood Count ATHE ([facility]) hemoglobin 15.1 g/dL 13.5-17.5 Hemoglobin [facility]DA ([facility]) mean corpuscular volume 83.7 fL 80.0-96.0 Mean Corpusc ular Volume HILDA ([facility]) hematocrit 45.6 % 42.0-52.0 Hematocrit [facility]DA ([facility]) mean corpuscular HGB conc 33.1 g/dL 32.0-36.5 Mean Corpu scular HGB Conc [facility]ILDA ([facility]) mean corpuscular hemoglobin 27.7 pg 27.0-33.0 Mean Cor puscular Hemoglobin HILDA ([facility]) red cell distribution width 13.5 % 11.5-14.5 Red Cell Distribution Width HILDA ([facility]) neutrophils % 53.2 % 36.0-66.0 Neutrophils % HILDA ( [facility]) lymph % 33.6 % 24.0-44.0 Lymph % [facility] ([facility]) platelet count, automated 230 10 150-450 Platelet C ount, Automated HILDA ([facility]) mono % 9.6 % 2.0-8.0 Above high normal [place] % [facility]ILDA ([facility]) eos % 2.7 % 0.0-3.0 Eos % [facility]ILDA ([facility]) baso % 0.6 % 0.0-1.0 Baso % [facility] ([facility]) immature granulocyte % 0.3 % 0-3.0 Immature Gran ulocyte % HILDA ([facility]) neutrophils # 3.4 10 1.5-8.5 Neutrophils # HILDA ( [facility]) nucleated red blood cell % 0.0 % 0-0 Nucleated Red Blood Cell % HILDA ([facility]) lymph # 2.1 10 1.5-5.0 Lymph # [facility]ILDA ([facility]) baso # 0.0 10 0.0-0.2 Baso # [facility]DA ([facility]) eos # 0.2 10 0.0-0.5 Eos # [facility]DA ([facility]) mono # 0.6 10 0.0-0.8 [place] # [facility]ILDA ([facility]) ID Date Data Source [id number] 04/29/2020 03:56:00 PM EDT HILDA ([facility]) Name Value Range Interpretation Code Description Data Ellie rce(s) Supporting Document(s) creatinine for GFR 1.12 mg/dL 0.70-1.30 Creatinine for GF R HILDA ([facility]) glucose, fasting 97 mg/dL 70-100 Glucose, Fasting AT [facility]) blood urea nitrogen 19 mg/dL 7-18 Above high normal Blood Ure a Nitrogen HILDA ([facility]) sodium level 137 mEq/L 136-145 Sodium Level HILDA ([facility]) potassium serum 4.1 mEq/L 3.5-5.1 Potassium Serum ATHE ([facility]) glomerular filtration rate > 60.0 >60 Glomerula r Filtration Rate [place] ([facility]) chloride level 103 mEq/L 98-107 Chloride Level [facility]) anion gap 3 mEq/L 8-16 Below low normal Anion Gap HILDA ( [facility]) calcium level 9.3 mg/dL 8.5-10.1 Calcium Level HILDA ( [facility]) carbon dioxide level 31 mEq/L 21-32 Carbon Dioxide Level [facility] ([facility]) ID Date Data Source [id number] 04/29/2020 03:56:00 PM EDT [facility]) Name Value Range Interpretation Code Description Data Ellie rce(s) Supporting Document(s) AST/SGOT 13 U/L 7-37 AST/SGOT HILDA ([facility]) bilirubin,total 0.5 mg/dL 0.2-1.0 Bilirubin,total ATHE ([facility]) alkaline phosphatase 76 U/L 45-117 Alkaline Phosph atase HILDA ([facility]) ALT/SGPT 25 U/L 12-78 ALT/SGPT [facility] ([facility]) total protein 7.0 gm/dL 6.4-8.2 Total Protein HILDA ( [facility]) bilirubin,direct 0.2 mg/dL 0.0-0.2 Bilirubin,direct AT [facility] ([facility]) albumin/globulin ratio Albumin/globu wu Ratio HILDA ([facility]) albumin 4.0 gm/dL 3.2-5.2 Albumin [facility] ([facility]) ID Date Data Source [id number] 04/29/2020 03:56:00 PM EDT HILDA ([facility]) Name Value Range Interpretation Code Description Data Ellie rce(s) Supporting Document(s) mb/CK relative index < or =4 mb/CK Relative Index [facility]ILDA ([facility]) CK-mb value mass 1.1 NG/mL <3.6 CK-mb Value Mass AT [facility] ([facility]) CPK creatine phosphokinase 142 U/L 39-308 CPK Creat ine Phosphokinase HILDA ([facility]) troponin I < 0.02 < 0.10 Troponin I [facility] ([facility]) ID Date Data Source [id number] 04/29/2020 03:56:00 PM EDT HILDA ([facility]) Name Value Range Interpretation Code Description Data Ellie rce(s) Supporting Document(s) partial thromboplastin time 30.8 seconds 24.2-38.5 Partial Thromboplastin Time [facility]ILDA ([facility]) ID Date Data Source [id number] 04/29/2020 03:56:00 PM EDT HILDA ([facility]) Name Value Range Interpretation Code Description Data Ellie rce(s) Supporting Document(s) INR Inr [facility]ILDA ([facility]) prothrombin time 13.2 seconds 12.5-14.3 Prothrombin Time [facility]DA ([facility]) ID Date Data Source [id number] 04/29/2020 03:56:00 PM EDT HILDA ([facility]) Name Value Range Interpretation Code Description Data Ellie rce(s) Supporting Document(s) white blood count 6.3 10 4.0-10.0 White Blood Count HILDA ([facility]) hematocrit 45.6 % 42.0-52.0 Hematocrit HILDA ([facility]) hemoglobin 15.1 g/dL 13.5-17.5 Hemoglobin HILDA ([facility]) red blood count 5.45 10 4.30-6.10 Red Blood Count ATHE NA ([facility]) mean corpuscular HGB conc 33.1 g/dL 32.0-36.5 Mean Corpu scular HGB Conc HILDA ([facility]) mean corpuscular hemoglobin 27.7 pg 27.0-33.0 Mean Cor puscular Hemoglobin HILDA ([facility]) mean corpuscular volume 83.7 fL 80.0-96.0 Mean Corpusc ular Volume HILDA ([facility]) lymph % 33.6 % 24.0-44.0 Lymph % [facility]ILDA ([facility]) red cell distribution width 13.5 % 11.5-14.5 Red Cell Distribution Width HILDA ([facility]) platelet count, automated 230 10 150-450 Platelet C ount, Automated HILDA ([facility]) neutrophils % 53.2 % 36.0-66.0 Neutrophils % HILDA ( [facility]) eos % 2.7 % 0.0-3.0 Eos % HILDA ([facility]) baso % 0.6 % 0.0-1.0 Baso % [facility]ILDA ([facility]) mono % 9.6 % 2.0-8.0 Above high normal [place] % HILDA ([facility]) neutrophils # 3.4 10 1.5-8.5 Neutrophils # HILDA ( [facility]) nucleated red blood cell % 0.0 % 0-0 Nucleated Red Blood Cell % HILDA ([facility]) immature granulocyte % 0.3 % 0-3.0 Immature Gran ulocyte % HILDA ([facility]) baso # 0.0 10 0.0-0.2 Baso # [facility]ILDA ([facility]) mono # 0.6 10 0.0-0.8 [place] # HILDA ([facility]) eos # 0.2 10 0.0-0.5 Eos # [facility]ILDA ([facility]) lymph # 2.1 10 1.5-5.0 Lymph # [facility]ILDA ([facility]) ID Date Data Source [id number] 04/29/2020 03:56:00 PM EDT [facility] ([facility]) Name Value Range Interpretation Code Description Data Ellie rce(s) Supporting Document(s) glucose, fasting 97 mg/dL 70-100 Glucose, Fasting AT [facility]) glomerular filtration rate > 60.0 >60 [place] r Filtration Rate HILDA ([facility]) sodium level 137 mEq/L 136-145 Sodium Level M[facility]ANE ([facility]) creatinine for GFR 1.12 mg/dL 0.70-1.30 Creatinine for GF R [facility]ANE ([facility]) blood urea nitrogen 19 mg/dL 7-18 Above high normal Blood Ure a Nitrogen HILDA ([facility]) carbon dioxide level 31 mEq/L 21-32 Carbon Dioxide Level HILDA ([facility]) chloride level 103 mEq/L 98-107 Chloride Level [facility] ([facility]) potassium serum 4.1 mEq/L 3.5-5.1 Potassium Serum [facility]) anion gap 3 mEq/L 8-16 Below low normal Anion Gap M[facility]ANE ( [facility]) calcium level 9.3 mg/dL 8.5-10.1 Calcium Level M[facility]ANE ( [facility]) ID Date Data Source [id number] 04/29/2020 03:56:00 PM EDT M[facility]ANE ([facility]) Name Value Range Interpretation Code Description Data Ellie rce(s) Supporting Document(s) AST/SGOT 13 U/L 7-37 AST/SGOT [facility] ([facility]) alkaline phosphatase 76 U/L 45-117 Alkaline Phosph atase [facility]ANE ([facility]) bilirubin,direct 0.2 mg/dL 0.0-0.2 Bilirubin,direct AT [facility]) bilirubin,total 0.5 mg/dL 0.2-1.0 Bilirubin,total ATHE NA ([facility]) ALT/SGPT 25 U/L 12-78 ALT/SGPT HILDA ([facility]) albumin 4.0 gm/dL 3.2-5.2 Albumin HILDA ([facility]) total protein 7.0 gm/dL 6.4-8.2 Total Protein HILDA ( [facility]) albumin/globulin ratio Albumin/globu wu Ratio HILDA ([facility]) ID Date Data Source [id number] 04/29/2020 03:56:00 PM EDT HILDA ([facility]) Name Value Range Interpretation Code Description Data Ellie rce(s) Supporting Document(s) CPK creatine phosphokinase 142 U/L 39-308 CPK Creat ine Phosphokinase HILDA ([facility]) mb/CK relative index < or =4 mb/CK Relative Index HILDA ([facility]) troponin I < 0.02 < 0.10 Troponin I HILDA ([facility]) CK-mb value mass 1.1 NG/mL <3.6 CK-mb Value Mass AT SHANI ([facility]) ID Date Data Source [id number] 04/29/2020 03:56:00 PM EDT HILDA ([facility]) Name Value Range Interpretation Code Description Data Ellie rce(s) Supporting Document(s) partial thromboplastin time 30.8 seconds 24.2-38.5 Partial Thromboplastin Time HILDA ([facility]) ID Date Data Source [id number] 04/29/2020 03:56:00 PM EDT HILDA ([facility]) Name Value Range Interpretation Code Description Data Ellie rce(s) Supporting Document(s) prothrombin time 13.2 seconds 12.5-14.3 Prothrombin Time [facility]DA ([facility]) INR Inr [facility]ILDA ([facility]) ID Date Data Source [id number] 04/29/2020 03:56:00 PM EDT HILDA ([facility]) Name Value Range Interpretation Code Description Data Ellie rce(s) Supporting Document(s) white blood count 6.3 10 4.0-10.0 White Blood Count HILDA ([facility]) red blood count 5.45 10 4.30-6.10 Red Blood Count ATHE NA ([facility]) hematocrit 45.6 % 42.0-52.0 Hematocrit HILDA ([facility]) hemoglobin 15.1 g/dL 13.5-17.5 Hemoglobin HILDA ([facility]) mean corpuscular volume 83.7 fL 80.0-96.0 Mean Corpusc ular Volume HILDA ([facility]) mean corpuscular HGB conc 33.1 g/dL 32.0-36.5 Mean Corpu scular HGB Conc HILDA ([facility]) mean corpuscular hemoglobin 27.7 pg 27.0-33.0 Mean Cor puscular Hemoglobin HILDA ([facility]) platelet count, automated 230 10 150-450 Platelet C ount, Automated HILDA ([facility]) neutrophils % 53.2 % 36.0-66.0 Neutrophils % [facility] ( [facility]) red cell distribution width 13.5 % 11.5-14.5 Red Cell Distribution Width HILDA ([facility]) mono % 9.6 % 2.0-8.0 Above high normal [place] % HILDA ([facility]) eos % 2.7 % 0.0-3.0 Eos % HILDA ([facility]) lymph % 33.6 % 24.0-44.0 Lymph % [facility]ILDA ([facility]) immature granulocyte % 0.3 % 0-3.0 Immature Gran ulocyte % HILDA ([facility]) baso % 0.6 % 0.0-1.0 Baso % [facility]DA ([facility]) nucleated red blood cell % 0.0 % 0-0 Nucleated Red Blood Cell % [facility]ILDA ([facility]) mono # 0.6 10 0.0-0.8 [place] # [facility]ILDA ([facility]) neutrophils # 3.4 10 1.5-8.5 Neutrophils # HILDA ( [facility]) eos # 0.2 10 0.0-0.5 Eos # [facility]DA ([facility]) lymph # 2.1 10 1.5-5.0 Lymph # [facility]DA ([facility]) baso # 0.0 10 0.0-0.2 Baso # [facility]DA ([facility]) ID Date Data Source [id number] 04/29/2020 03:56:00 PM EDT [facility] ([facility]) Name Value Range Interpretation Code Description Data Ellie rce(s) Supporting Document(s) glucose, fasting 97 mg/dL 70-100 Glucose, Fasting AT [facility]) blood urea nitrogen 19 mg/dL 7-18 Above high normal Blood Ure a Nitrogen [facility] ([facility]) creatinine for GFR 1.12 mg/dL 0.70-1.30 Creatinine for GF R [facility] ([facility]) potassium serum 4.1 mEq/L 3.5-5.1 Potassium Serum ATHE NA ([facility]) glomerular filtration rate > 60.0 >60 [place] r Filtration Rate [facility]ANE ([facility]) sodium level 137 mEq/L 136-145 Sodium Level HILDA ([facility]) chloride level 103 mEq/L 98-107 Chloride Level [facility]DA ([facility]) anion gap 3 mEq/L 8-16 Below low normal Anion Gap [facility] ( [facility]) calcium level 9.3 mg/dL 8.5-10.1 Calcium Level [facility] ( [facility]) carbon dioxide level 31 mEq/L 21-32 Carbon Dioxide Level [facility] ([facility]) ID Date Data Source [id number] 04/29/2020 03:56:00 PM EDT [facility] ([facility]) Name Value Range Interpretation Code Description Data Ellie rce(s) Supporting Document(s) AST/SGOT 13 U/L 7-37 AST/SGOT [facility]DA ([facility]) ALT/SGPT 25 U/L 12-78 ALT/SGPT [facility]DA ([facility]) bilirubin,total 0.5 mg/dL 0.2-1.0 Bilirubin,total ATHE ([facility]) bilirubin,direct 0.2 mg/dL 0.0-0.2 Bilirubin,direct AT [facility] ([facility]) alkaline phosphatase 76 U/L 45-117 Alkaline Phosph atase HILDA ([facility]) albumin 4.0 gm/dL 3.2-5.2 Albumin [facility] ([facility]) albumin/globulin ratio Albumin/globu wu Ratio [facility]ILDA ([facility]) total protein 7.0 gm/dL 6.4-8.2 Total Protein [facility]DA ( [facility]) ID Date Data Source [id number] 04/29/2020 03:56:00 PM EDT HILDA ([facility]) Name Value Range Interpretation Code Description Data Ellie rce(s) Supporting Document(s) CK-mb value mass 1.1 NG/mL <3.6 CK-mb Value Mass AT [facility] ([facility]) CPK creatine phosphokinase 142 U/L 39-308 CPK Creat ine Phosphokinase HILDA ([facility]) mb/CK relative index < or =4 mb/CK Relative Index [facility]DA ([facility]) troponin I < 0.02 < 0.10 Troponin I [facility] ([facility]) ID Date Data Source [id number] 04/29/2020 03:56:00 PM EDT [facility]DA ([facility]) Name Value Range Interpretation Code Description Data Ellie rce(s) Supporting Document(s) partial thromboplastin time 30.8 seconds 24.2-38.5 Partial Thromboplastin Time [facility]DA ([facility]) ID Date Data Source [id number] 04/29/2020 03:56:00 PM EDT [facility]ILDA ([facility]) Name Value Range Interpretation Code Description Data Ellie rce(s) Supporting Document(s) prothrombin time 13.2 seconds 12.5-14.3 Prothrombin Time [facility] ([facility]) INR Inr [facility]DA ([facility]) ID Date Data Source [id number] 04/29/2020 03:56:00 PM EDT [facility]ILDA ([facility]) Name Value Range Interpretation Code Description Data Ellie rce(s) Supporting Document(s) white blood count 6.3 10 4.0-10.0 White Blood Count [facility]DA ([facility]) red blood count 5.45 10 4.30-6.10 Red Blood Count ATHE ([facility]) hemoglobin 15.1 g/dL 13.5-17.5 Hemoglobin [facility]DA ([facility]) hematocrit 45.6 % 42.0-52.0 Hematocrit [facility]DA ([facility]) mean corpuscular HGB conc 33.1 g/dL 32.0-36.5 Mean Corpu scular HGB Conc [facility]ILDA ([facility]) mean corpuscular hemoglobin 27.7 pg 27.0-33.0 Mean Cor puscular Hemoglobin [facility]ILDA ([facility]) mean corpuscular volume 83.7 fL 80.0-96.0 Mean Corpusc ular Volume [facility]ILDA ([facility]) platelet count, automated 230 10 150-450 Platelet C ount, Automated [facility]DA ([facility]) red cell distribution width 13.5 % 11.5-14.5 Red Cell Distribution Width [facility]DA ([facility]) neutrophils % 53.2 % 36.0-66.0 Neutrophils % HILDA ( [facility]) lymph % 33.6 % 24.0-44.0 Lymph % [facility]DA ([facility]) eos % 2.7 % 0.0-3.0 Eos % [facility] ([facility]) mono % 9.6 % 2.0-8.0 Above high normal [place] % [facility]DA ([facility]) baso % 0.6 % 0.0-1.0 Baso % [facility]DA ([facility]) nucleated red blood cell % 0.0 % 0-0 Nucleated Red Blood Cell % [facility]DA ([facility]) immature granulocyte % 0.3 % 0-3.0 Immature Gran ulocyte % [facility]DA ([facility]) mono # 0.6 10 0.0-0.8 [place] # [facility]DA ([facility]) neutrophils # 3.4 10 1.5-8.5 Neutrophils # [facility]ILDA ( [facility]) lymph # 2.1 10 1.5-5.0 Lymph # [facility]DA ([facility]) eos # 0.2 10 0.0-0.5 Eos # [facility]DA ([facility]) baso # 0.0 10 0.0-0.2 Baso # [facility] ([facility]) ID Date Data Source [id number] 04/29/2020 03:56:00 PM EDT [facility] ([facility]) Name Value Range Interpretation Code Description Data Ellie rce(s) Supporting Document(s) glucose, fasting 97 mg/dL 70-100 Glucose, Fasting AT [facility]) blood urea nitrogen 19 mg/dL 7-18 Above high normal Blood Ure a Nitrogen [facility] ([facility]) glomerular filtration rate > 60.0 >60 [place] r Filtration Rate [facility] ([facility]) creatinine for GFR 1.12 mg/dL 0.70-1.30 Creatinine for GF R HILDA ([facility]) sodium level 137 mEq/L 136-145 Sodium Level [facility]DA ([facility]) chloride level 103 mEq/L 98-107 Chloride Level [facility] ([facility]) potassium serum 4.1 mEq/L 3.5-5.1 Potassium Serum ATHE NA ([facility]) anion gap 3 mEq/L 8-16 Below low normal Anion Gap [facility] ( [facility]) calcium level 9.3 mg/dL 8.5-10.1 Calcium Level [facility] ( [facility]) carbon dioxide level 31 mEq/L 21-32 Carbon Dioxide Level [facility] ([facility]) ID Date Data Source [id number] 04/29/2020 03:56:00 PM EDT [facility] ([facility]) Name Value Range Interpretation Code Description Data Ellie rce(s) Supporting Document(s) AST/SGOT 13 U/L 7-37 AST/SGOT [facility] ([facility]) ALT/SGPT 25 U/L 12-78 ALT/SGPT [facility] ([facility]) alkaline phosphatase 76 U/L 45-117 Alkaline Phosph atase [facility]DA ([facility]) bilirubin,total 0.5 mg/dL 0.2-1.0 Bilirubin,total ATHE ([facility]) bilirubin,direct 0.2 mg/dL 0.0-0.2 Bilirubin,direct AT [facility] ([facility]) albumin 4.0 gm/dL 3.2-5.2 Albumin [facility] ([facility]) total protein 7.0 gm/dL 6.4-8.2 Total Protein [facility] ( [facility]) albumin/globulin ratio Albumin/globu wu Ratio [facility] ([facility]) ID Date Data Source [id number] 03/23/2020 12:00:00 AM EST [facility] Name Value Range Interpretation Code Description Data Ellie rce(s) Supporting Document(s) SARS-CoV2 Rapid Antigen Negative [facility] This lab was ordered by [facility] and reported by [facility]. ID Date Data Source [id number] 01/09/2020 03:51:00 PM EST [place] ([facility]) Name Value Range Interpretation Code Description Data Ellie rce(s) Supporting Document(s) C reactive protein quantitativ < 0.30 0.00-0.30 C Reactive Protein Quantitativ [facility] ([facility]) ID Date Data Source [id number] 01/09/2020 03:51:00 PM EST [facility] ([facility]) Name Value Range Interpretation Code Description Data Ellie rce(s) Supporting Document(s) cholesterol level 278 mg/dL <200 Above high normal Cholesterol Level [facility] ([facility]) triglycerides level 314 mg/dL <150 Above high normal Triglycer ides Level [facility] ([facility]) cholesterol risk ratio <5 Above high normal Choles terol Risk Ratio [facility] ([facility]) non-HDL-C 240 mg/dL Non-hdl-c [facility] ([facility]) Cholesterol in LDL [Mass/volume] in Serum or Plasma 177 mg/dL <100 Above high normal LDL Cholesterol [facility] ([facility]) HDL cholesterol 38 mg/dL >40 Below low normal HDL Cholestero l [facility] ([facility]) ID Date Data Source [id number] 01/09/2020 03:51:00 PM EST [facility] ([facility]) Name Value Range Interpretation Code Description Data Ellie rce(s) Supporting Document(s) C reactive protein quantitativ < 0.30 0.00-0.30 C Reactive Protein Quantitativ [facility] ([facility]) ID Date Data Source [id number] 01/09/2020 03:51:00 PM EST [facility] ([facility]) Name Value Range Interpretation Code Description Data Ellie rce(s) Supporting Document(s) cholesterol level 278 mg/dL <200 Above high normal Cholesterol Level [facility] ([facility]) triglycerides level 314 mg/dL <150 Above high normal Triglycer ides Level [facility] ([facility]) non-HDL-C 240 mg/dL Non-hdl-c [facility] ([facility]) cholesterol risk ratio <5 Above high normal Choles terol Risk Ratio [facility] ([facility]) HDL cholesterol 38 mg/dL >40 Below low normal HDL Cholestero l [facility] ([facility]) Cholesterol in LDL [Mass/volume] in Serum or Plasma 177 mg/dL <100 Above high normal LDL Cholesterol [facility] ([facility]) ID Date Data Source [id number] 01/09/2020 03:51:00 PM EST [facility] ([facility]) Name Value Range Interpretation Code Description Data Ellie rce(s) Supporting Document(s) C reactive protein quantitativ < 0.30 0.00-0.30 C Reactive Protein Quantitativ [facility] ([facility]) ID Date Data Source [id number] 01/09/2020 03:51:00 PM EST [facility] ([facility]) Name Value Range Interpretation Code Description Data Ellie rce(s) Supporting Document(s) cholesterol level 278 mg/dL <200 Above high normal Cholesterol Level [facility] ([facility]) triglycerides level 314 mg/dL <150 Above high normal Triglycer ides Level [facility] ([facility]) HDL cholesterol 38 mg/dL >40 Below low normal HDL Cholestero l [facility] ([facility]) Cholesterol in LDL [Mass/volume] in Serum or Plasma 177 mg/dL <100 Above high normal LDL Cholesterol [facility] ([facility]) cholesterol risk ratio <5 Above high normal Choles terol Risk Ratio [facility] ([facility]) non-HDL-C 240 mg/dL Non-hdl-c [facility] ([facility]) ID Date Data Source [id number] 01/09/2020 03:51:00 PM EST [facility] ([facility]) Name Value Range Interpretation Code Description Data Ellie rce(s) Supporting Document(s) C reactive protein quantitativ < 0.30 0.00-0.30 C Reactive Protein Quantitativ [facility] ([facility]) ID Date Data Source [id number] 01/09/2020 03:51:00 PM EST [facility] ([facility]) Name Value Range Interpretation Code Description Data Ellie rce(s) Supporting Document(s) HDL cholesterol 38 mg/dL >40 Below low normal HDL Cholestero l [facility] ([facility]) triglycerides level 314 mg/dL <150 Above high normal Triglycer ides Level [facility] ([facility]) cholesterol level 278 mg/dL <200 Above high normal Cholesterol Level [facility] ([facility]) non-HDL-C 240 mg/dL Non-hdl-c [facility] ([facility]) cholesterol risk ratio <5 Above high normal Choles terol Risk Ratio [facility] ([facility]) Cholesterol in LDL [Mass/volume] in Serum or Plasma 177 mg/dL <100 Above high normal LDL Cholesterol [facility] ([facility]) ID Date Data Source [id number] 01/09/2020 03:51:00 PM EST [facility] ([facility]) Name Value Range Interpretation Code Description Data Ellie rce(s) Supporting Document(s) C reactive protein quantitativ < 0.30 0.00-0.30 C Reactive Protein Quantitativ [facility] ([facility]) ID Date Data Source [id number] 01/09/2020 03:51:00 PM EST [facility] ([facility]) Name Value Range Interpretation Code Description Data Ellie rce(s) Supporting Document(s) triglycerides level 314 mg/dL <150 Above high normal Triglycer ides Level [facility] ([facility]) cholesterol level 278 mg/dL <200 Above high normal Cholesterol Level [facility] ([facility]) HDL cholesterol 38 mg/dL >40 Below low normal HDL Cholestero l [facility] ([facility]) non-HDL-C 240 mg/dL Non-hdl-c [facility] ([facility]) Cholesterol in LDL [Mass/volume] in Serum or Plasma 177 mg/dL <100 Above high normal LDL Cholesterol [facility] ([facility]) cholesterol risk ratio <5 Above high normal Choles terol Risk Ratio [facility] ([facility]) ID Date Data Source [id number] 01/09/2020 03:51:00 PM EST [facility] ([facility]) Name Value Range Interpretation Code Description Data Ellie rce(s) Supporting Document(s) C reactive protein quantitativ < 0.30 0.00-0.30 C Reactive Protein Quantitativ [facility] ([facility]) ID Date Data Source [id number] 01/09/2020 03:51:00 PM EST [facility] ([facility]) Name Value Range Interpretation Code Description Data Ellie rce(s) Supporting Document(s) triglycerides level 314 mg/dL <150 Above high normal Triglycer ides Level [facility] ([facility]) cholesterol level 278 mg/dL <200 Above high normal Cholesterol Level [facility] ([facility]) HDL cholesterol 38 mg/dL >40 Below low normal HDL Cholestero l [facility] ([facility]) non-HDL-C 240 mg/dL Non-hdl-c [facility] ([facility]) Cholesterol in LDL [Mass/volume] in Serum or Plasma 177 mg/dL <100 Above high normal LDL Cholesterol [facility] ([facility]) cholesterol risk ratio <5 Above high normal Choles terol Risk Ratio [facility] ([facility]) ID Date Data Source [id number] 01/09/2020 03:51:00 PM EST [facility] ([facility]) Name Value Range Interpretation Code Description Data Ellie rce(s) Supporting Document(s) C reactive protein quantitativ < 0.30 0.00-0.30 C Reactive Protein Quantitativ [facility] ([facility]) ID Date Data Source [id number] 01/09/2020 03:51:00 PM EST [facility] ([facility]) Name Value Range Interpretation Code Description Data Ellie rce(s) Supporting Document(s) cholesterol level 278 mg/dL <200 Above high normal Cholesterol Level [facility] ([facility]) triglycerides level 314 mg/dL <150 Above high normal Triglycer ides Level [facility] ([facility]) HDL cholesterol 38 mg/dL >40 Below low normal HDL Cholestero l [facility] ([facility]) Cholesterol in LDL [Mass/volume] in Serum or Plasma 177 mg/dL <100 Above high normal LDL Cholesterol [facility] ([facility]) non-HDL-C 240 mg/dL Non-hdl-c [facility] ([facility]) cholesterol risk ratio <5 Above high normal Choles terol Risk Ratio [facility] ([facility]) ID Date Data Source [id number] 01/09/2020 03:51:00 PM EST [facility] ([facility]) Name Value Range Interpretation Code Description Data Ellie rce(s) Supporting Document(s) C reactive protein quantitativ < 0.30 0.00-0.30 C Reactive Protein Quantitativ [facility] ([facility]) ID Date Data Source [id number] 01/09/2020 03:51:00 PM EST [facility] ([facility]) Name Value Range Interpretation Code Description Data Ellie rce(s) Supporting Document(s) triglycerides level 314 mg/dL <150 Above high normal Triglycer ides Level [facility] ([facility]) cholesterol level 278 mg/dL <200 Above high normal Cholesterol Level [facility] ([facility]) HDL cholesterol 38 mg/dL >40 Below low normal HDL Cholestero l [facility] ([facility]) Cholesterol in LDL [Mass/volume] in Serum or Plasma 177 mg/dL <100 Above high normal LDL Cholesterol [facility] ([facility]) cholesterol risk ratio <5 Above high normal Choles terol Risk Ratio [facility] ([facility]) non-HDL-C 240 mg/dL Non-hdl-c [facility] ([facility]) ID Date Data Source [id number] 01/09/2020 03:51:00 PM EST [facility] ([facility]) Name Value Range Interpretation Code Description Data Ellie rce(s) Supporting Document(s) C reactive protein quantitativ < 0.30 0.00-0.30 C Reactive Protein Quantitativ [facility] ([facility]) ID Date Data Source [id number] 01/09/2020 03:51:00 PM EST [facility] ([facility]) Name Value Range Interpretation Code Description Data Ellie rce(s) Supporting Document(s) cholesterol level 278 mg/dL <200 Above high normal Cholesterol Level [facility] ([facility]) triglycerides level 314 mg/dL <150 Above high normal Triglycer ides Level [facility] ([facility]) HDL cholesterol 38 mg/dL >40 Below low normal HDL Cholestero l [facility] ([facility]) Cholesterol in LDL [Mass/volume] in Serum or Plasma 177 mg/dL <100 Above high normal LDL Cholesterol [facility] ([facility]) cholesterol risk ratio <5 Above high normal Choles terol Risk Ratio [facility] ([facility]) non-HDL-C 240 mg/dL Non-hdl-c [facility] ([facility]) ID Date Data Source [id number] 01/09/2020 03:51:00 PM EST [facility] ([facility]) Name Value Range Interpretation Code Description Data Ellie rce(s) Supporting Document(s) C reactive protein quantitativ < 0.30 0.00-0.30 C Reactive Protein Quantitativ [facility] ([facility]) ID Date Data Source [id number] 01/09/2020 03:51:00 PM EST [facility] ([facility]) Name Value Range Interpretation Code Description Data Ellie rce(s) Supporting Document(s) cholesterol level 278 mg/dL <200 Above high normal Cholesterol Level [facility] ([facility]) Cholesterol in LDL [Mass/volume] in Serum or Plasma 177 mg/dL <100 Above high normal LDL Cholesterol [facility] ([facility]) HDL cholesterol 38 mg/dL >40 Below low normal HDL Cholestero l [facility] ([facility]) triglycerides level 314 mg/dL <150 Above high normal Triglycer ides Level [facility] ([facility]) non-HDL-C 240 mg/dL Non-hdl-c [facility] ([facility]) cholesterol risk ratio <5 Above high normal Choles terol Risk Ratio [facility] ([facility]) ID Date Data Source [id number] 01/09/2020 03:51:00 PM EST [facility] ([facility]) Name Value Range Interpretation Code Description Data Ellie rce(s) Supporting Document(s) C reactive protein quantitativ < 0.30 0.00-0.30 C Reactive Protein Quantitativ [facility] ([facility]) ID Date Data Source [id number] 01/09/2020 03:51:00 PM EST [facility] ([facility]) Name Value Range Interpretation Code Description Data Ellie rce(s) Supporting Document(s) HDL cholesterol 38 mg/dL >40 Below low normal HDL Cholestero l [facility] ([facility]) triglycerides level 314 mg/dL <150 Above high normal Triglycer ides Level [facility] ([facility]) cholesterol level 278 mg/dL <200 Above high normal Cholesterol Level [facility] ([facility]) Cholesterol in LDL [Mass/volume] in Serum or Plasma 177 mg/dL <100 Above high normal LDL Cholesterol [facility] ([facility]) non-HDL-C 240 mg/dL Non-hdl-c [facility] ([facility]) cholesterol risk ratio <5 Above high normal Choles terol Risk Ratio [facility] ([facility]) ID Date Data Source [id number] 01/09/2020 03:51:00 PM EST [facility] ([facility]) Name Value Range Interpretation Code Description Data Ellie rce(s) Supporting Document(s) C reactive protein quantitativ < 0.30 0.00-0.30 C Reactive Protein Quantitativ [facility] ([facility]) ID Date Data Source [id number] 01/09/2020 03:51:00 PM EST [facility] ([facility]) Name Value Range Interpretation Code Description Data Ellie rce(s) Supporting Document(s) triglycerides level 314 mg/dL <150 Above high normal Triglycer ides Level [facility] ([facility]) HDL cholesterol 38 mg/dL >40 Below low normal HDL Cholestero l [facility] ([facility]) cholesterol level 278 mg/dL <200 Above high normal Cholesterol Level [facility] ([facility]) Cholesterol in LDL [Mass/volume] in Serum or Plasma 177 mg/dL <100 Above high normal LDL Cholesterol [facility] ([facility]) non-HDL-C 240 mg/dL Non-hdl-c [facility] ([facility]) cholesterol risk ratio <5 Above high normal Choles terol Risk Ratio [facility] ([facility]) ID Date Data Source [id number] 01/09/2020 03:51:00 PM EST [facility] ([facility]) Name Value Range Interpretation Code Description Data Ellie rce(s) Supporting Document(s) C reactive protein [Mass/volume] in Serum or Plasma by High sensitivity method Laboratory test result 0.00-0.30 [facility] ([facility]) ID Date Data Source [id number] 01/09/2020 03:51:00 PM EST [facility] ([facility]) Name Value Range Interpretation Code Description Data Ellie rce(s) Supporting Document(s) Triglycerides Level 314 mg/dL [facility] ([facility] HDL Cholesterol 38 mg/dL [facility] ([facility] Cholesterol Level 278 mg/dL [facility] ([facility] Cholesterol Risk Ratio 7.315 [facility] ([facility]) LDL Cholesterol 177 mg/dL [facility] ([facility] Non-HDL-C 240 mg/dL [facility] ID Date Data Source [id number] 01/09/2020 03:51:00 PM [facility] Name Value Range Interpretation Code Description Data Ellie rce(s) Supporting Document(s) C reactive protein quantitativ < 0.30 0.00-0.30 C Reactive Protein Quantitativ [facility] ([facility]) ID Date Data Source [id number] 01/09/2020 03:51:00 PM EST [facility] ([facility]) Name Value Range Interpretation Code Description Data Ellie rce(s) Supporting Document(s) triglycerides level 314 mg/dL <150 Above high normal Triglycer ides Level [facility] ([facility]) cholesterol level 278 mg/dL <200 Above high normal Cholesterol Level [facility] ([facility]) HDL cholesterol 38 mg/dL >40 Below low normal HDL Cholestero l [facility] ([facility]) non-HDL-C 240 mg/dL Non-hdl-c [facility] ([facility]) Cholesterol in LDL [Mass/volume] in Serum or Plasma 177 mg/dL <100 Above high normal LDL Cholesterol [facility] ([facility]) cholesterol risk ratio <5 Above high normal Choles terol Risk Ratio [facility] ([facility]) ID Date Data Source [id number] 01/09/2020 03:51:00 PM EST [facility] ([facility]) Name Value Range Interpretation Code Description Data Ellie rce(s) Supporting Document(s) C reactive protein quantitativ < 0.30 0.00-0.30 C Reactive Protein Quantitativ [facility] ([facility]) ID Date Data Source [id number] 01/09/2020 03:51:00 PM EST [facility] ([facility]) Name Value Range Interpretation Code Description Data Ellie rce(s) Supporting Document(s) cholesterol level 278 mg/dL <200 Above high normal Cholesterol Level [facility] ([facility]) triglycerides level 314 mg/dL <150 Above high normal Triglycer ides Level [facility] ([facility]) non-HDL-C 240 mg/dL Non-hdl-c [facility] ([facility]) Cholesterol in LDL [Mass/volume] in Serum or Plasma 177 mg/dL <100 Above high normal LDL Cholesterol [facility] ([facility]) HDL cholesterol 38 mg/dL >40 Below low normal HDL Cholestero l [facility] ([facility]) cholesterol risk ratio <5 Above high normal Choles terol Risk Ratio [facility] ([facility]) ID Date Data Source [id number] 01/09/2020 03:51:00 PM EST [facility] ([facility]) Name Value Range Interpretation Code Description Data Ellie rce(s) Supporting Document(s) C reactive protein quantitativ < 0.30 0.00-0.30 C Reactive Protein Quantitativ [facility] ([facility]) ID Date Data Source [id number] 01/09/2020 03:51:00 PM EST [facility] ([facility]) Name Value Range Interpretation Code Description Data Ellie rce(s) Supporting Document(s) triglycerides level 314 mg/dL <150 Above high normal Triglycer ides Level [facility] ([facility]) cholesterol level 278 mg/dL <200 Above high normal Cholesterol Level [facility] ([facility]) HDL cholesterol 38 mg/dL >40 Below low normal HDL Cholestero l [facility] ([facility]) cholesterol risk ratio <5 Above high normal Choles terol Risk Ratio [facility] ([facility]) Cholesterol in LDL [Mass/volume] in Serum or Plasma 177 mg/dL <100 Above high normal LDL Cholesterol [facility] ([facility]) non-HDL-C 240 mg/dL Non-hdl-c [facility] ([facility]) ID Date Data Source [id number] 01/09/2020 03:51:00 PM EST [facility] ([facility]) Name Value Range Interpretation Code Description Data Ellie rce(s) Supporting Document(s) C reactive protein quantitativ < 0.30 0.00-0.30 C Reactive Protein Quantitativ [facility] ([facility]) ID Date Data Source [id number] 01/09/2020 03:51:00 PM EST [facility] ([facility]) Name Value Range Interpretation Code Description Data Ellie rce(s) Supporting Document(s) triglycerides level 314 mg/dL <150 Above high normal Triglycer ides Level [facility] ([facility]) cholesterol level 278 mg/dL <200 Above high normal Cholesterol Level [facility] ([facility]) non-HDL-C 240 mg/dL Non-hdl-c [facility] ([facility]) HDL cholesterol 38 mg/dL >40 Below low normal HDL Cholestero l [facility] ([facility]) Cholesterol in LDL [Mass/volume] in Serum or Plasma 177 mg/dL <100 Above high normal LDL Cholesterol [facility] ([facility]) cholesterol risk ratio <5 Above high normal Choles terol Risk Ratio [facility] ([facility]) ID Date Data Source [id number] 01/09/2020 03:51:00 PM EST [facility] ([facility]) Name Value Range Interpretation Code Description Data Ellie rce(s) Supporting Document(s) C reactive protein quantitativ < 0.30 0.00-0.30 C Reactive Protein Quantitativ [facility] ([facility]) ID Date Data Source [id number] 01/09/2020 03:51:00 PM EST [facility] ([facility]) Name Value Range Interpretation Code Description Data Ellie rce(s) Supporting Document(s) cholesterol level 278 mg/dL <200 Above high normal Cholesterol Level [facility] ([facility]) triglycerides level 314 mg/dL <150 Above high normal Triglycer ides Level [facility] ([facility]) Cholesterol in LDL [Mass/volume] in Serum or Plasma 177 mg/dL <100 Above high normal LDL Cholesterol [facility] ([facility]) cholesterol risk ratio <5 Above high normal Choles terol Risk Ratio [facility] ([facility]) HDL cholesterol 38 mg/dL >40 Below low normal HDL Cholestero l [facility] ([facility]) non-HDL-C 240 mg/dL Non-hdl-c [facility] ([facility]) ID Date Data Source [id number] 01/09/2020 03:51:00 PM EST [facility] ([facility]) Name Value Range Interpretation Code Description Data Ellie rce(s) Supporting Document(s) C reactive protein quantitativ < 0.30 0.00-0.30 C Reactive Protein Quantitativ [facility] ([facility]) ID Date Data Source [id number] 01/09/2020 03:51:00 PM EST [facility] ([facility]) Name Value Range Interpretation Code Description Data Ellie rce(s) Supporting Document(s) cholesterol level 278 mg/dL <200 Above high normal Cholesterol Level [facility] ([facility]) HDL cholesterol 38 mg/dL >40 Below low normal HDL Cholestero l [facility] ([facility]) triglycerides level 314 mg/dL <150 Above high normal Triglycer ides Level [facility] ([facility]) non-HDL-C 240 mg/dL Non-hdl-c [facility] ([facility]) cholesterol risk ratio <5 Above high normal Choles terol Risk Ratio [facility] ([facility]) Cholesterol in LDL [Mass/volume] in Serum or Plasma 177 mg/dL <100 Above high normal LDL Cholesterol [facility] ([facility]) ID Date Data Source [id number] 01/09/2020 03:51:00 PM EST [facility] ([facility]) Name Value Range Interpretation Code Description Data Ellie rce(s) Supporting Document(s) C reactive protein quantitativ < 0.30 0.00-0.30 C Reactive Protein Quantitativ [facility] ([facility]) ID Date Data Source [id number] 01/09/2020 03:51:00 PM EST [facility] ([facility]) Name Value Range Interpretation Code Description Data Ellie rce(s) Supporting Document(s) triglycerides level 314 mg/dL <150 Above high normal Triglycer ides Level [facility] ([facility]) cholesterol level 278 mg/dL <200 Above high normal Cholesterol Level [facility] ([facility]) Cholesterol in LDL [Mass/volume] in Serum or Plasma 177 mg/dL <100 Above high normal LDL Cholesterol [facility] ([facility]) non-HDL-C 240 mg/dL Non-hdl-c [facility] ([facility]) HDL cholesterol 38 mg/dL >40 Below low normal HDL Cholestero l [facility] ([facility]) cholesterol risk ratio <5 Above high normal Choles terol Risk Ratio [facility] ([facility]) ID Date Data Source [id number] 01/09/2020 03:51:00 PM EST [facility] ([facility]) Name Value Range Interpretation Code Description Data Ellie rce(s) Supporting Document(s) C reactive protein quantitativ < 0.30 0.00-0.30 C Reactive Protein Quantitativ [facility] ([facility]) ID Date Data Source [id number] 01/09/2020 03:51:00 PM EST [facility] ([facility]) Name Value Range Interpretation Code Description Data Ellie rce(s) Supporting Document(s) triglycerides level 314 mg/dL <150 Above high normal Triglycer ides Level HIL[facility] ([facility]) HDL cholesterol 38 mg/dL >40 Below low normal HDL Cholestero l HILDA ([facility]) non-HDL-C 240 mg/dL Non-hdl-c H[facility] ([facility]) Cholesterol in LDL [Mass/volume] in Serum or Plasma 177 mg/dL <100 Above high normal LDL Cholesterol H[facility] ([facility]) cholesterol level 278 mg/dL <200 Above high normal Cholesterol Level HILDA ([facility]) cholesterol risk ratio <5 Above high normal Choles terol Risk Ratio H[facility] ([facility]) ID Date Data Source [id number] 01/09/2020 03:51:00 PM EST HILDA ([facility]) Name Value Range Interpretation Code Description Data Ellie rce(s) Supporting Document(s) C reactive protein quantitativ < 0.30 0.00-0.30 C Reactive Protein Quantitativ [facility] ([facility]) ID Date Data Source [id number] 01/09/2020 03:51:00 PM EST HILDA ([facility]) Name Value Range Interpretation Code Description Data Ellie rce(s) Supporting Document(s) triglycerides level 314 mg/dL <150 Above high normal Triglycer ides Level HILDA ([facility]) HDL cholesterol 38 mg/dL >40 Below low normal HDL Cholestero l HILDA ([facility]) Cholesterol in LDL [Mass/volume] in Serum or Plasma 177 mg/dL <100 Above high normal LDL Cholesterol HILDA ([facility]) cholesterol level 278 mg/dL <200 Above high normal Cholesterol Level HILDA ([facility]) non-HDL-C 240 mg/dL Non-hdl-c H[facility] ([facility]) cholesterol risk ratio <5 Above high normal Choles terol Risk Ratio [facility] ([facility]) ID Date Data Source [id number] 01/09/2020 03:51:00 PM EST HILDA ([facility]) Name Value Range Interpretation Code Description Data Ellie rce(s) Supporting Document(s) C reactive protein quantitativ < 0.30 0.00-0.30 C Reactive Protein Quantitativ [facility] ([facility]) ID Date Data Source [id number] 01/09/2020 03:51:00 PM EST HILDA ([facility]) Name Value Range Interpretation Code Description Data Ellie rce(s) Supporting Document(s) cholesterol level 278 mg/dL <200 Above high normal Cholesterol Level HILDA ([facility]) triglycerides level 314 mg/dL <150 Above high normal Triglycer ides Level HILDA ([facility]) Cholesterol in LDL [Mass/volume] in Serum or Plasma 177 mg/dL <100 Above high normal LDL Cholesterol H[facility]DA ([facility]) non-HDL-C 240 mg/dL Non-hdl-c [facility] ([facility]) cholesterol risk ratio <5 Above high normal Choles terol Risk Ratio H[facility] ([facility]) HDL cholesterol 38 mg/dL >40 Below low normal HDL Cholestero l [facility] ([facility]) ID Date Data Source [id number] 01/09/2020 03:51:00 PM EST HILDA ([facility]) Name Value Range Interpretation Code Description Data Ellie rce(s) Supporting Document(s) C reactive protein quantitativ < 0.30 0.00-0.30 C Reactive Protein Quantitativ [facility] ([facility]) ID Date Data Source [id number] 01/09/2020 03:51:00 PM EST HILDA ([facility]) Name Value Range Interpretation Code Description Data Ellie rce(s) Supporting Document(s) triglycerides level 314 mg/dL <150 Above high normal Triglycer ides Level HILDA ([facility]) Cholesterol in LDL [Mass/volume] in Serum or Plasma 177 mg/dL <100 Above high normal LDL Cholesterol [facility] ([facility]) HDL cholesterol 38 mg/dL >40 Below low normal HDL Cholestero l HIL[facility] ([facility]) non-HDL-C 240 mg/dL Non-hdl-c [facility] ([facility]) cholesterol level 278 mg/dL <200 Above high normal Cholesterol Level [facility] ([facility]) cholesterol risk ratio <5 Above high normal Choles terol Risk Ratio [facility] ([facility]) ID Date Data Source [id number] 01/09/2020 03:51:00 PM EST HILDA ([facility]) Name Value Range Interpretation Code Description Data Ellie rce(s) Supporting Document(s) C reactive protein quantitativ < 0.30 0.00-0.30 C Reactive Protein Quantitativ [facility] ([facility]) ID Date Data Source [id number] 01/09/2020 03:51:00 PM EST HILDA ([facility]) Name Value Range Interpretation Code Description Data Ellie rce(s) Supporting Document(s) HDL cholesterol 38 mg/dL >40 Below low normal HDL Cholestero l HILDA ([facility]) cholesterol level 278 mg/dL <200 Above high normal Cholesterol Level HILDA ([facility]) triglycerides level 314 mg/dL <150 Above high normal Triglycer ides Level HILDA ([facility]) cholesterol risk ratio <5 Above high normal Choles terol Risk Ratio HIL[facility] ([facility]) Cholesterol in LDL [Mass/volume] in Serum or Plasma 177 mg/dL <100 Above high normal LDL Cholesterol [facility] ([facility]) non-HDL-C 240 mg/dL Non-hdl-c [facility] ([facility]) ID Date Data Source [id number] 01/09/2020 03:51:00 PM EST HILDA ([facility]) Name Value Range Interpretation Code Description Data Ellie rce(s) Supporting Document(s) C reactive protein quantitativ < 0.30 0.00-0.30 C Reactive Protein Quantitativ [facility] ([facility]) ID Date Data Source [id number] 01/09/2020 03:51:00 PM EST [facility]IL[facility] ([facility]) Name Value Range Interpretation Code Description Data Ellie rce(s) Supporting Document(s) cholesterol level 278 mg/dL <200 Above high normal Cholesterol Level HIL[facility] ([facility]) triglycerides level 314 mg/dL <150 Above high normal Triglycer ides Level HIL[facility] ([facility]) Cholesterol in LDL [Mass/volume] in Serum or Plasma 177 mg/dL <100 Above high normal LDL Cholesterol [facility] ([facility]) non-HDL-C 240 mg/dL Non-hdl-c [facility] ([facility]) cholesterol risk ratio <5 Above high normal Choles terol Risk Ratio HIL[facility] ([facility]) HDL cholesterol 38 mg/dL >40 Below low normal HDL Cholestero l [facility] ([facility]) ID Date Data Source [id number] 01/09/2020 03:51:00 PM EST [facility]ILDA ([facility]) Name Value Range Interpretation Code Description Data Ellie rce(s) Supporting Document(s) C reactive protein quantitativ < 0.30 0.00-0.30 C Reactive Protein Quantitativ [facility] ([facility]) ID Date Data Source [id number] 01/09/2020 03:51:00 PM EST HILDA ([facility]) Name Value Range Interpretation Code Description Data Ellie rce(s) Supporting Document(s) triglycerides level 314 mg/dL <150 Above high normal Triglycer ides Level [facility] ([facility]) cholesterol level 278 mg/dL <200 Above high normal Cholesterol Level HIL[facility] ([facility]) HDL cholesterol 38 mg/dL >40 Below low normal HDL Cholestero l [facility] ([facility]) non-HDL-C 240 mg/dL Non-hdl-c [facility] ([facility]) Cholesterol in LDL [Mass/volume] in Serum or Plasma 177 mg/dL <100 Above high normal LDL Cholesterol [facility] ([facility]) cholesterol risk ratio <5 Above high normal Choles terol Risk Ratio [facility] ([facility]) ID Date Data Source [id number] 01/09/2020 03:51:00 PM EST [facility]ILDA ([facility]) Name Value Range Interpretation Code Description Data Ellie rce(s) Supporting Document(s) C reactive protein quantitativ < 0.30 0.00-0.30 C Reactive Protein Quantitativ [facility] ([facility]) ID Date Data Source [id number] 01/09/2020 03:51:00 PM EST [facility]IL[facility] ([facility]) Name Value Range Interpretation Code Description Data Ellie rce(s) Supporting Document(s) triglycerides level 314 mg/dL <150 Above high normal Triglycer ides Level HIL[facility] ([facility]) HDL cholesterol 38 mg/dL >40 Below low normal HDL Cholestero l HIL[facility] ([facility]) cholesterol level 278 mg/dL <200 Above high normal Cholesterol Level [facility] ([facility]) cholesterol risk ratio <5 Above high normal Choles terol Risk Ratio [facility] ([facility]) non-HDL-C 240 mg/dL Non-hdl-c [facility] ([facility]) Cholesterol in LDL [Mass/volume] in Serum or Plasma 177 mg/dL <100 Above high normal LDL Cholesterol [facility] ([facility]) ID Date Data Source [id number] 01/09/2020 03:51:00 PM EST [facility]ILDA ([facility]) Name Value Range Interpretation Code Description Data Ellie rce(s) Supporting Document(s) C reactive protein quantitativ < 0.30 0.00-0.30 C Reactive Protein Quantitativ [facility] ([facility]) ID Date Data Source [id number] 01/09/2020 03:51:00 PM EST HILDA ([facility]) Name Value Range Interpretation Code Description Data Ellie rce(s) Supporting Document(s) cholesterol level 278 mg/dL <200 Above high normal Cholesterol Level H[facility] ([facility]) triglycerides level 314 mg/dL <150 Above high normal Triglycer ides Level HILDA ([facility]) cholesterol risk ratio <5 Above high normal Choles terol Risk Ratio [facility] ([facility]) non-HDL-C 240 mg/dL Non-hdl-c [facility] ([facility]) HDL cholesterol 38 mg/dL >40 Below low normal HDL Cholestero l HILDA ([facility]) Cholesterol in LDL [Mass/volume] in Serum or Plasma 177 mg/dL <100 Above high normal LDL Cholesterol [facility] ([facility]) ID Date Data Source [id number] 01/09/2020 03:51:00 PM EST [facility]ILDA ([facility]) Name Value Range Interpretation Code Description Data Ellie rce(s) Supporting Document(s) C reactive protein quantitativ < 0.30 0.00-0.30 C Reactive Protein Quantitativ [facility] ([facility]) ID Date Data Source [id number] 01/09/2020 03:51:00 PM EST HILDA ([facility]) Name Value Range Interpretation Code Description Data Ellie rce(s) Supporting Document(s) HDL cholesterol 38 mg/dL >40 Below low normal HDL Cholestero l HILDA ([facility]) triglycerides level 314 mg/dL <150 Above high normal Triglycer ides Level HILDA ([facility]) cholesterol level 278 mg/dL <200 Above high normal Cholesterol Level [facility] ([facility]) non-HDL-C 240 mg/dL Non-hdl-c [facility] ([facility]) cholesterol risk ratio <5 Above high normal Choles terol Risk Ratio [facility]DA ([facility]) Cholesterol in LDL [Mass/volume] in Serum or Plasma 177 mg/dL <100 Above high normal LDL Cholesterol [facility]DA ([facility]) ID Date Data Source [id number] 01/09/2020 03:51:00 PM EST HILDA ([facility]) Name Value Range Interpretation Code Description Data Ellie rce(s) Supporting Document(s) C reactive protein quantitativ < 0.30 0.00-0.30 C Reactive Protein Quantitativ [facility] ([facility]) ID Date Data Source [id number] 01/09/2020 03:51:00 PM EST HILDA ([facility]) Name Value Range Interpretation Code Description Data Ellie rce(s) Supporting Document(s) triglycerides level 314 mg/dL <150 Above high normal Triglycer ides Level HILDA ([facility]) cholesterol risk ratio <5 Above high normal Choles terol Risk Ratio H[facility]DA ([facility]) Cholesterol in LDL [Mass/volume] in Serum or Plasma 177 mg/dL <100 Above high normal LDL Cholesterol H[facility]DA ([facility]) HDL cholesterol 38 mg/dL >40 Below low normal HDL Cholestero l HILDA ([facility]) cholesterol level 278 mg/dL <200 Above high normal Cholesterol Level [facility]DA ([facility]) non-HDL-C 240 mg/dL Non-hdl-c [facility] ([facility]) ID Date Data Source [id number] 01/09/2020 03:51:00 PM EST HILDA ([facility]) Name Value Range Interpretation Code Description Data Ellie rce(s) Supporting Document(s) C reactive protein quantitativ < 0.30 0.00-0.30 C Reactive Protein Quantitativ [facility]DA ([facility]) ID Date Data Source [id number] 01/09/2020 03:51:00 PM EST HILDA ([facility]) Name Value Range Interpretation Code Description Data Ellie rce(s) Supporting Document(s) cholesterol level 278 mg/dL <200 Above high normal Cholesterol Level HILDA ([facility]) triglycerides level 314 mg/dL <150 Above high normal Triglycer ides Level HILDA ([facility]) non-HDL-C 240 mg/dL Non-hdl-c [facility] ([facility]) Cholesterol in LDL [Mass/volume] in Serum or Plasma 177 mg/dL <100 Above high normal LDL Cholesterol H[facility]DA ([facility]) cholesterol risk ratio <5 Above high normal Choles terol Risk Ratio HILDA ([facility]) HDL cholesterol 38 mg/dL >40 Below low normal HDL Cholestero l [facility]ILDA ([facility]) ID Date Data Source [id number] 01/09/2020 03:51:00 PM EST HILDA ([facility]) Name Value Range Interpretation Code Description Data Ellie rce(s) Supporting Document(s) C reactive protein quantitativ < 0.30 0.00-0.30 C Reactive Protein Quantitativ [facility]ILDA ([facility]) ID Date Data Source [id number] 01/09/2020 03:51:00 PM EST HILDA ([facility]) Name Value Range Interpretation Code Description Data Ellie rce(s) Supporting Document(s) cholesterol level 278 mg/dL <200 Above high normal Cholesterol Level HILDA ([facility]) HDL cholesterol 38 mg/dL >40 Below low normal HDL Cholestero l HILDA ([facility]) triglycerides level 314 mg/dL <150 Above high normal Triglycer ides Level HILDA ([facility]) Cholesterol in LDL [Mass/volume] in Serum or Plasma 177 mg/dL <100 Above high normal LDL Cholesterol HIDLA ([facility]) cholesterol risk ratio <5 Above high normal Choles terol Risk Ratio H[facility]DA ([facility]) non-HDL-C 240 mg/dL Non-hdl-c [facility] ([facility]) ID Date Data Source [id number] 01/09/2020 03:51:00 PM EST HILDA ([facility]) Name Value Range Interpretation Code Description Data Ellie rce(s) Supporting Document(s) C reactive protein quantitativ < 0.30 0.00-0.30 C Reactive Protein Quantitativ [facility]DA ([facility]) ID Date Data Source [id number] 01/09/2020 03:51:00 PM EST HILDA ([facility]) Name Value Range Interpretation Code Description Data Ellie rce(s) Supporting Document(s) triglycerides level 314 mg/dL <150 Above high normal Triglycer ides Level HILDA ([facility]) Cholesterol in LDL [Mass/volume] in Serum or Plasma 177 mg/dL <100 Above high normal LDL Cholesterol H[facility] ([facility]) cholesterol level 278 mg/dL <200 Above high normal Cholesterol Level H[facility]DA ([facility]) HDL cholesterol 38 mg/dL >40 Below low normal HDL Cholestero l HILDA ([facility]) non-HDL-C 240 mg/dL Non-hdl-c [facility] ([facility]) cholesterol risk ratio <5 Above high normal Choles terol Risk Ratio [facility]DA ([facility]) ID Date Data Source [id number] 12/17/2019 04:48:00 PM EST [facility] ([facility]) Name Value Range Interpretation Code Description Data Ellie rce(s) Supporting Document(s) White Blood Count 8.2 4.0-10.0 [facility] ([facility]) Red Blood Count 5.36 4.00-5.40 [facility] ([facility]) Hemoglobin 14.5 [facility] ([facility]) Platelets 248 172-450 [facility] Hematocrit 45.1 [facility] ([facility]) ID Date Data Source [id number] 12/17/2019 04:48:00 PM EST [facility] ([facility]) Name Value Range Interpretation Code Description Data Ellie rce(s) Supporting Document(s) Magnesium Level 2.0 1.8-2.4 [facility] ([facility]) Thyroid Stimulating Hormone 1.360 ME DENT ([facility]) Free T4 0.73 [facility] ([facility] ID Date Data Source [id number] 12/17/2019 04:48:00 PM EST [facility] ([facility]) Name Value Range Interpretation Code Description Data Ellie rce(s) Supporting Document(s) Alanine aminotransferase [Enzymatic activity/volume] in Serum or Pl asma 39 [facility] ([facility]) Albumin [Mass/volume] in Serum or Plasma 3.7 [facility] ([facility]) Calcium [Mass/volume] in Serum or Plasma 8.9 [facility] ([facility]) Carbon dioxide, total [Moles/volume] in Serum or Plasma 30 [facility] ([facility]) Chloride [Moles/volume] in Serum or Plasma 105 [facility] ([facility]) Alkaline phosphatase [Enzymatic activity/volume] in Serum or Plasma 8 0 [facility] ([facility]) Protein [Mass/volume] in Serum or Plasma 7.1 [facility] ([facility]) Potassium [Moles/volume] in Serum or Plasma 4.0 [facility] ([facility]) Sodium 142 [facility] Urea nitrogen [Mass/volume] in Serum or Plasma 20 [facility] ([facility]) Glucose 83 70-100 [facility] ([facility] Aspartate aminotransferase [Enzymatic activity/volume] in Serum or Plasma 24 [facility] ([facility]) Creatinine For GFR 1.16 [facility] ([facility]) ID Date Data Source [id number] 12/16/2019 02:05:00 PM EST HILDA ([facility]) Name Value Range Interpretation Code Description Data Ellie rce(s) Supporting Document(s) ID Date Data Source [id number] 12/16/2019 02:05:00 PM EST HILDA ([facility]) Name Value Range Interpretation Code Description Data Ellie rce(s) Supporting Document(s) ID Date Data Source [id number] 12/16/2019 02:05:00 PM EST HILDA ([facility]) Name Value Range Interpretation Code Description Data Ellie rce(s) Supporting Document(s) ID Date Data Source [id number] 12/16/2019 02:05:00 PM EST HILDA ([facility]) Name Value Range Interpretation Code Description Data Ellie rce(s) Supporting Document(s) ID Date Data Source [id number] 12/16/2019 02:05:00 PM EST HILDA ([facility]) Name Value Range Interpretation Code Description Data Ellie rce(s) Supporting Document(s) ID Date Data Source [id number] 12/16/2019 02:05:00 PM EST HILDA ([facility]) Name Value Range Interpretation Code Description Data Ellie rce(s) Supporting Document(s) ID Date Data Source [id number] 12/16/2019 02:05:00 PM EST HILDA ([facility]) Name Value Range Interpretation Code Description Data Ellie rce(s) Supporting Document(s) ID Date Data Source [id number] 12/16/2019 02:05:00 PM EST HILDA ([facility]) Name Value Range Interpretation Code Description Data Ellie rce(s) Supporting Document(s) ID Date Data Source [id number] 12/16/2019 02:05:00 PM EST HILDA [facility]) Name Value Range Interpretation Code Description Data Ellie rce(s) Supporting Document(s) ID Date Data Source [id number] 12/16/2019 02:05:00 PM EST HILDA ([facility]) Name Value Range Interpretation Code Description Data Ellie rce(s) Supporting Document(s) ID Date Data Source [id number] 12/16/2019 02:05:00 PM EST HILDA ([facility]) Name Value Range Interpretation Code Description Data Ellie rce(s) Supporting Document(s) ID Date Data Source [id number] 12/16/2019 02:05:00 PM EST HILDA ([facility]) Name Value Range Interpretation Code Description Data Ellie rce(s) Supporting Document(s) ID Date Data Source [id number] 12/16/2019 02:05:00 PM EST HILDA ([facility]) Name Value Range Interpretation Code Description Data Ellie rce(s) Supporting Document(s) ID Date Data Source [id number] 12/16/2019 02:05:00 PM EST HILDA ([facility]) Name Value Range Interpretation Code Description Data Ellie rce(s) Supporting Document(s) ID Date Data Source [id number] 12/16/2019 02:05:00 PM EST HILDA ([facility]) Name Value Range Interpretation Code Description Data Ellie rce(s) Supporting Document(s) ID Date Data Source [id number] 12/16/2019 02:05:00 PM EST HILDA ([facility]) Name Value Range Interpretation Code Description Data Ellie rce(s) Supporting Document(s) ID Date Data Source [id number] 12/16/2019 02:05:00 PM EST HILDA ([facility]) Name Value Range Interpretation Code Description Data Ellie rce(s) Supporting Document(s) ID Date Data Source [id number] 12/16/2019 02:05:00 PM EST [facility]ILDA ([facility]) Name Value Range Interpretation Code Description Data Ellie rce(s) Supporting Document(s) ID Date Data Source [id number] 12/16/2019 02:05:00 PM EST [facility]ILDA ([facility]) Name Value Range Interpretation Code Description Data Ellie rce(s) Supporting Document(s) ID Date Data Source [id number] 12/16/2019 02:05:00 PM EST HILDA ([facility]) Name Value Range Interpretation Code Description Data Ellie rce(s) Supporting Document(s) ID Date Data Source [id number] 12/16/2019 02:05:00 PM EST [facility]ILDA ([facility]) Name Value Range Interpretation Code Description Data Ellie rce(s) Supporting Document(s) ID Date Data Source [id number] 12/16/2019 02:05:00 PM EST [facility]ILDA ([facility]) Name Value Range Interpretation Code Description Data Ellie rce(s) Supporting Document(s) ID Date Data Source [id number] 12/16/2019 02:05:00 PM EST [facility]IL[facility] ([facility]) Name Value Range Interpretation Code Description Data Ellie rce(s) Supporting Document(s) ID Date Data Source [id number] 12/16/2019 02:05:00 PM EST [facility] ([facility]) Name Value Range Interpretation Code Description Data Ellie rce(s) Supporting Document(s) ID Date Data Source [id number] 12/16/2019 02:05:00 PM EST [facility] ([facility]) Name Value Range Interpretation Code Description Data Ellie rce(s) Supporting Document(s) ID Date Data Source [id number] 12/16/2019 02:05:00 PM EST [facility] ([facility]) Name Value Range Interpretation Code Description Data Ellie rce(s) Supporting Document(s) ID Date Data Source [id number] 12/16/2019 02:05:00 PM EST [facility] ([facility]) Name Value Range Interpretation Code Description Data Ellie rce(s) Supporting Document(s) ID Date Data Source [id number] 12/16/2019 02:05:00 PM EST [facility] ([facility]) Name Value Range Interpretation Code Description Data Ellie rce(s) Supporting Document(s) ID Date Data Source [id number] 12/16/2019 02:05:00 PM EST [facility] ([facility]) Name Value Range Interpretation Code Description Data Ellie rce(s) Supporting Document(s) ID Date Data Source [id number] 12/16/2019 02:05:00 PM EST [facility] ([facility]) Name Value Range Interpretation Code Description Data Ellie rce(s) Supporting Document(s) ID Date Data Source [id number] 12/16/2019 02:05:00 PM EST [facility] ([facility]) Name Value Range Interpretation Code Description Data Ellie rce(s) Supporting Document(s) ID Date Data Source [id number] 12/16/2019 02:05:00 PM EST [facility]) Name Value Range Interpretation Code Description Data Ellie rce(s) Supporting Document(s) ID Date Data Source [id number] 12/16/2019 02:05:00 PM [facility] Name Value Range Interpretation Code Description Data Ellie rce(s) Supporting Document(s) ID Date Data Source [id number] 12/16/2019 02:05:00 PM EST [facility] Name Value Range Interpretation Code Description Data Ellie rce(s) Supporting Document(s) ID Date Data Source [id number] 12/16/2019 02:05:00 PM EST [facility] Name Value Range Interpretation Code Description Data Ellie rce(s) Supporting Document(s) ID Date Data Source [id number] 12/16/2019 02:05:00 PM EST [facility] Name Value Range Interpretation Code Description Data Ellie rce(s) Supporting Document(s) ID Date Data Source [id number] 12/16/2019 02:05:00 PM EST [facility] Name Value Range Interpretation Code Description Data Ellie rce(s) Supporting Document(s) ID Date Data Source [id number] 12/11/2019 04:30:00 AM EST [facility] Name Value Range Interpretation Code Description Data Ellie rce(s) Supporting Document(s) SARS-CoV-2 (COVID-19) RNA [Presence] in Respiratory specimen by HITESH with probe detection not detected not detected Sars Cov 2 RNA [facility]) ID Date Data Source [id number] 12/11/2019 04:30:00 AM EST [facility]) Name Value Range Interpretation Code Description Data Ellie rce(s) Supporting Document(s) SARS-CoV-2 (COVID-19) RNA [Presence] in Respiratory specimen by HITESH with probe detection not detected not detected Sars Cov 2 RNA [facility]) ID Date Data Source [id number] 12/11/2019 04:30:00 AM EST [facility]) Name Value Range Interpretation Code Description Data Ellie rce(s) Supporting Document(s) SARS-CoV-2 (COVID-19) RNA [Presence] in Respiratory specimen by HITESH with probe detection not detected not detected Sars Cov 2 RNA [facility]) ID Date Data Source [id number] 12/11/2019 04:30:00 AM EST [facility]) Name Value Range Interpretation Code Description Data Ellie rce(s) Supporting Document(s) SARS-CoV-2 (COVID-19) RNA [Presence] in Respiratory specimen by HITESH with probe detection not detected not detected Sars Cov 2 RNA [facility]) ID Date Data Source [id number] 12/11/2019 04:30:00 AM EST [facility]) Name Value Range Interpretation Code Description Data Ellie rce(s) Supporting Document(s) SARS-CoV-2 (COVID-19) RNA [Presence] in Respiratory specimen by HITESH with probe detection not detected not detected Sars Cov 2 RNA [facility]) ID Date Data Source [id number] 12/11/2019 04:30:00 AM EST [facility]) Name Value Range Interpretation Code Description Data Ellie rce(s) Supporting Document(s) SARS-CoV-2 (COVID-19) RNA [Presence] in Respiratory specimen by HITESH with probe detection not detected not detected Sars Cov 2 RNA [facility]) ID Date Data Source [id number] 12/11/2019 04:30:00 AM EST [facility]) Name Value Range Interpretation Code Description Data Ellie rce(s) Supporting Document(s) SARS-CoV-2 (COVID-19) RNA [Presence] in Respiratory specimen by HITESH with probe detection not detected not detected Sars Cov 2 RNA [facility]) ID Date Data Source [id number] 12/11/2019 04:30:00 AM EST [facility]) Name Value Range Interpretation Code Description Data Ellie rce(s) Supporting Document(s) SARS-CoV-2 (COVID-19) RNA [Presence] in Respiratory specimen by HITESH with probe detection not detected not detected Sars Cov 2 RNA [facility]) ID Date Data Source [id number] 12/11/2019 04:30:00 AM EST [facility]) Name Value Range Interpretation Code Description Data Ellie rce(s) Supporting Document(s) SARS-CoV-2 (COVID-19) RNA [Presence] in Respiratory specimen by HITESH with probe detection not detected not detected Sars Cov 2 RNA [facility]) ID Date Data Source [id number] 12/11/2019 04:30:00 AM EST [facility]) Name Value Range Interpretation Code Description Data Ellie rce(s) Supporting Document(s) SARS-CoV-2 (COVID-19) RNA [Presence] in Respiratory specimen by HITESH with probe detection not detected not detected Sars Cov 2 RNA [facility]) ID Date Data Source [id number] 12/11/2019 04:30:00 AM EST [facility]) Name Value Range Interpretation Code Description Data Ellie rce(s) Supporting Document(s) SARS-CoV-2 (COVID-19) RNA [Presence] in Respiratory specimen by HITESH with probe detection not detected not detected Sars Cov 2 RNA [facility]) ID Date Data Source [id number] 12/11/2019 04:30:00 AM EST [place] ([facility]) Name Value Range Interpretation Code Description Data Ellie rce(s) Supporting Document(s) SARS-CoV-2 (COVID-19) RNA [Presence] in Respiratory specimen by HITESH with probe detection not detected not detected Sars Cov 2 RNA [facility]) ID Date Data Source [id number] 12/11/2019 04:30:00 AM EST [facility] ([facility]) Name Value Range Interpretation Code Description Data Ellie rce(s) Supporting Document(s) SARS-CoV-2 (COVID-19) RNA [Presence] in Respiratory specimen by HITESH with probe detection not detected not detected Sars Cov 2 RNA [facility]) ID Date Data Source [id number] 12/11/2019 04:30:00 AM EST [facility]) Name Value Range Interpretation Code Description Data Ellie rce(s) Supporting Document(s) SARS-CoV-2 (COVID-19) RNA [Presence] in Respiratory specimen by HITESH with probe detection not detected not detected Sars Cov 2 RNA [facility]) ID Date Data Source [id number] 12/11/2019 04:30:00 AM EST [facility] Name Value Range Interpretation Code Description Data Ellie rce(s) Supporting Document(s) SARS-CoV-2 (COVID-19) RNA [Presence] in Respiratory specimen by HITESH with probe detection not detected not detected Sars Cov 2 RNA [facility]) ID Date Data Source [id number] 12/11/2019 04:30:00 AM EST [facility]) Name Value Range Interpretation Code Description Data Ellie rce(s) Supporting Document(s) SARS-CoV-2 (COVID-19) RNA [Presence] in Respiratory specimen by HITESH with probe detection not detected not detected Sars Cov 2 RNA [facility] ([facility]) ID Date Data Source [id number] 12/11/2019 04:30:00 AM EST [facility] ([facility]) Name Value Range Interpretation Code Description Data Ellie rce(s) Supporting Document(s) SARS-CoV-2 (COVID-19) RNA [Presence] in Respiratory specimen by HITESH with probe detection not detected not detected Sars Cov 2 RNA [facility]) ID Date Data Source [id number] 12/11/2019 04:30:00 AM EST [facility]) Name Value Range Interpretation Code Description Data Ellie rce(s) Supporting Document(s) SARS-CoV-2 (COVID-19) RNA [Presence] in Respiratory specimen by HITESH with probe detection not detected not detected Sars Cov 2 RNA [facility]) ID Date Data Source [id number] 12/11/2019 04:30:00 AM EST [facility]) Name Value Range Interpretation Code Description Data Ellie rce(s) Supporting Document(s) SARS-CoV-2 (COVID-19) RNA [Presence] in Respiratory specimen by HITESH with probe detection not detected not detected Sars Cov 2 RNA [facility]) ID Date Data Source [id number] 12/11/2019 04:30:00 AM EST [facility]) Name Value Range Interpretation Code Description Data Ellie rce(s) Supporting Document(s) SARS-CoV-2 (COVID-19) RNA [Presence] in Respiratory specimen by HITESH with probe detection not detected not detected Sars Cov 2 RNA [facility]) ID Date Data Source [id number] 12/11/2019 04:30:00 AM EST [facility]) Name Value Range Interpretation Code Description Data Ellie rce(s) Supporting Document(s) SARS-CoV-2 (COVID-19) RNA [Presence] in Respiratory specimen by HITESH with probe detection not detected not detected Sars Cov 2 RNA [facility] ([facility]) ID Date Data Source [id number] 12/11/2019 04:30:00 AM EST [facility] ([facility]) Name Value Range Interpretation Code Description Data Ellie rce(s) Supporting Document(s) SARS-CoV-2 (COVID-19) RNA [Presence] in Respiratory specimen by HITESH with probe detection not detected not detected Sars Cov 2 RNA [facility]) ID Date Data Source [id number] 12/11/2019 04:30:00 AM EST [facility] Name Value Range Interpretation Code Description Data Ellie rce(s) Supporting Document(s) SARS-CoV-2 (COVID-19) RNA [Presence] in Respiratory specimen by HITESH with probe detection not detected not detected Sars Cov 2 RNA [facility]) ID Date Data Source [id number] 12/11/2019 04:30:00 AM EST [facility] Name Value Range Interpretation Code Description Data Ellie rce(s) Supporting Document(s) SARS-CoV-2 (COVID-19) RNA [Presence] in Respiratory specimen by HITESH with probe detection not detected not detected Sars Cov 2 RNA [facility] ID Date Data Source [id number] 12/11/2019 04:30:00 AM EST [facility]) Name Value Range Interpretation Code Description Data Ellie rce(s) Supporting Document(s) SARS-CoV-2 (COVID-19) RNA [Presence] in Respiratory specimen by HITESH with probe detection not detected not detected Sars Cov 2 RNA [facility]) ID Date Data Source [id number] 12/11/2019 04:30:00 AM EST [facility]) Name Value Range Interpretation Code Description Data Ellie rce(s) Supporting Document(s) SARS-CoV-2 (COVID-19) RNA [Presence] in Respiratory specimen by HITESH with probe detection not detected not detected Sars Cov 2 RNA [facility]) ID Date Data Source [id number] 12/11/2019 04:30:00 AM EST [facility]) Name Value Range Interpretation Code Description Data Ellie rce(s) Supporting Document(s) SARS-CoV-2 (COVID-19) RNA [Presence] in Respiratory specimen by HITESH with probe detection not detected not detected Sars Cov 2 RNA [facility]) ID Date Data Source [id number] 12/11/2019 04:30:00 AM EST [facility]) Name Value Range Interpretation Code Description Data Ellie rce(s) Supporting Document(s) SARS-CoV-2 (COVID-19) RNA [Presence] in Respiratory specimen by HITESH with probe detection not detected not detected Sars Cov 2 RNA [facility]) ID Date Data Source [id number] 12/11/2019 04:30:00 AM EST [facility]) Name Value Range Interpretation Code Description Data Ellie rce(s) Supporting Document(s) SARS-CoV-2 (COVID-19) RNA [Presence] in Respiratory specimen by HITESH with probe detection not detected not detected Sars Cov 2 RNA [facility]) ID Date Data Source [id number] 12/11/2019 04:30:00 AM EST [facility]) Name Value Range Interpretation Code Description Data Ellie rce(s) Supporting Document(s) SARS-CoV-2 (COVID-19) RNA [Presence] in Respiratory specimen by HITESH with probe detection not detected not detected Sars Cov 2 RNA [facility]) ID Date Data Source [id number] 12/11/2019 04:30:00 AM EST [facility] ([facility]) Name Value Range Interpretation Code Description Data Ellie rce(s) Supporting Document(s) SARS coronavirus 2 RNA [Presence] in Res piratory specimen by HITESH with probe detection not detected not detected Sars Cov 2 RNA [facility] ([facility]) ID Date Data Source [id number] 12/11/2019 04:30:00 AM EST [facility] ([facility]) Name Value Range Interpretation Code Description Data Ellie rce(s) Supporting Document(s) SARS coronavirus 2 RNA [Presence] in Res piratory specimen by HITESH with probe detection not detected not detected Sars Cov 2 RNA [facility] ([facility]) ID Date Data Source [id number] 12/11/2019 04:30:00 AM EST [place] ([facility]) Name Value Range Interpretation Code Description Data Ellie rce(s) Supporting Document(s) SARS coronavirus 2 RNA [Presence] in Res piratory specimen by HITESH with probe detection not detected not detected Sars Cov 2 RNA [facility] ([facility]) ID Date Data Source [id number] 12/11/2019 04:30:00 AM EST [place] ([facility]) Name Value Range Interpretation Code Description Data Ellie rce(s) Supporting Document(s) SARS coronavirus 2 RNA [Presence] in Res piratory specimen by HITESH with probe detection not detected not detected Sars Cov 2 RNA [facility] ([facility]) ID Date Data Source [id number] 12/11/2019 04:30:00 AM EST [facility] Name Value Range Interpretation Code Description Data Ellie rce(s) Supporting Document(s) SARS-COV-2 RNA RESP QL HITESH+PROBE [facility] This lab was ordered by [facility] and reported by [facility]. ID Date Data Source [id number] 12/11/2019 04:30:00 AM EST [place] ([facility]) Name Value Range Interpretation Code Description Data Ellie rce(s) Supporting Document(s) SARS-CoV-2 (COVID-19) RNA [Presence] in Respiratory specimen by HITESH with probe detection not detected not detected Sars Cov 2 RNA [facility]) ID Date Data Source [id number] 12/11/2019 04:30:00 AM EST [place] ([facility]) Name Value Range Interpretation Code Description Data Ellie rce(s) Supporting Document(s) SARS-CoV-2 (COVID-19) RNA [Presence] in Respiratory specimen by HITESH with probe detection not detected not detected Sars Cov 2 RNA [facility]) ID Date Data Source [id number] 12/11/2019 04:30:00 AM [facility]) Name Value Range Interpretation Code Description Data Ellie rce(s) Supporting Document(s) SARS-CoV-2 (COVID-19) RNA [Presence] in Respiratory specimen by HITESH with probe detection not detected not detected Sars Cov 2 RNA [facility]) ID Date Data Source [id number] 10/28/2019 05:05:00 PM EDT [facility] ([facility]) Name Value Range Interpretation Code Description Data Ellie rce(s) Supporting Document(s) Troponin Laboratory test result [facility] ([facility]) ID Date Data Source [id number] 10/28/2019 05:05:00 PM EDT [facility] ([facility]) Name Value Range Interpretation Code Description Data Ellie rce(s) Supporting Document(s) Creatine kinase [Enzymatic activity/volume] in Serum or Plasma 359 [facility] ([facility]) CPK-MB Laboratory test result [facility] ([facility]) ID Date Data Source [id number] 10/28/2019 03:32:56 PM EDT [facility] Measurements & CalculationsHeight: 72 inches [...] 2019 3:36 PMPatient History Medical History:Anxiety/panicInsomniaSurgical History:Family History:LSE-dcketqYmqvcxo-rebbktcAhojjt/Personal History:Smoking History:Patient has never smoked. Chief Complaintfollow-up [...] sadness/scared/depressed. Pt also was seen in [facility] ER last night/this morning for [...] during this visit, including review of any qbfl-smm-hcwrmxd medications, herbal therapies, and/or supplements.Allergy ReviewAllergy List [...] is? ExcellentAssessment & Plan Problems:Added: Chronic insomnia (YBV00-V58.04) Assessment: Instructions: As above.Chest pain, unspecified (LPJ70-M25.9) Assessment: Instructions: Referral to cardiology for evaluation. Unlikely to be cardiac in nature with frequent labs/EKG.Bradycardia (ICD-427.89) (ICD10- R00.1) Assessment: Instructions: Likely secondary to routine fitness levels. However, given brother's syncopal episodes and loop recorder, will refer to cardiology for evaluation.Assessed:GENERALIZED ANXIETY DISORDER (ICD- 300.02) (OOX73-F37.1) Assessment: Instructions: Continue current Lexapro daily and [...] HYDROXYZINE HCL 10 MG ORAL TABLET Qty: [id number] Refills: 30[Tablet] To: HYDROXYZINE HCL 10 MG ORAL TABLET-Take 1 tablet po q 6 hrs prnAllergies:No Known Allergies (updated 10/28/2019) Orders:Cardiology Consult [CPT-05377] Adult - Ofc Vst, EST, Level III [CPT- 26846] Follow-Up Return to clinic: in 2 months for follow upAdditional Follow- Up: cardio referral, anxietyClinical Visit Summary CompletedMedications:HYDROXYZINE HCL 25 MG ORAL TABLET (HYDROXYZINE HCL) Take 1- 2 tablets by mouth at bedtime prn insomnia #60[Tablet] x 1 Route:ORAL Entered and Authorized by: Terry AGUAYO [facility]: [facility] ([facility] [address] [place] [address] Note to Pharmacy: Route: ORAL; Indications: CHRONIC INSOMNIA;GENERALIZED ANXIETY DISORDER RxID: [id number] signed by Terry AGUAYO on 11/13/2019 at 8:30 AM Name Value Range Interpretation Code Description Data Ellie rce(s) Supporting Document(s) ID Date Data Source [id number] 10/28/2019 02:21:00 AM EDT [facility] Name Value Range Interpretation Code Description Data Ellie rce(s) Supporting Document(s) HCT 45.6 % 42.0-52.0 N [facility] HGB 14.9 g/dL 13.5-17.5 N [facility] MCH 32.7 G/DL pg 32.0-36.5 N [facility] MCHC 27.6 PG % 27.0-33.0 [facility] PLATELETS 259 10 10*3/mm3 150-450 [facility] RBC 5.40 10 10*6/mm3 4.30-6.10 [facility] RDW 13.2 % 11.5-14.5 [facility] WBC TOTAL 10.0 4.0-10.0 N [facility] ID Date Data Source [id number] 10/28/2019 02:21:00 AM EDT [facility] Name Value Range Interpretation Code Description Data Ellie rce(s) Supporting Document(s) BG FASTING 102 mg/dL 70-100 [facility] ID Date Data Source [id number] 09/30/2019 01:44:56 PM EDT [facility] Measurements & CalculationsHeight: 72 inches [...] Illness (HPI)28 yo male presents for [facility] ER f/u. Pt states he has been having terrible migraines for a few days and yesterday woke up with heart racing, feeling like "brain on fire" and chest tightness. Went to [facility] ED last night and was [...] during this visit, including review of any rwlv-cql-smikprn medications, herbal therapies, and/or supplements.Allergy ReviewAllergy List [...] Problems:Assessed:Adjustment disorder with mixed emotional features (ICD-309.28) (GEC49-T48.23) Assessment: Instructions: Continue Lexapro daily. Hydroxyzine may be taken up to 2 tablets every 6 hrs daily as needed, with last dose at bedtime for insomnia. Ativan for severe panic, take 1/2 tablet to start and if no relief after 30 minutes then take second 1/2. New Rx sent for short supply.C/O - panic attack (ICD-300.01) (TSS25-E99.0) Assessment: Instructions: As above.Gastro-esophageal reflux disease without esophagitis (ICD-530.81) (BJL16-S54.9) Assessment: Instructions: Continue omeprazole as prescribed. Hold [...] - Ofc Vst, EST, Level III [CPT -68209] Follow-Up Return to clinic: as needed, as scheduled Clinical Visit Summary Completed Name Value Range Interpretation Code Description Data Ellie rce(s) Supporting Document(s) ID Date Data Source [id number] 09/30/2019 03:16:00 AM EDT [facility] Name Value Range Interpretation Code Description Data Ellie rce(s) Supporting Document(s) HCT 43.9 % 42.0-52.0 N [facility] HGB 15.1 g/dL 13.5-17.5 N [facility] MCH 34.4 G/DL pg 32.0-36.5 N [facility] MCHC 28.9 PG % 27.0-33.0 N [facility] PLATELETS 263 10 10*3/mm3 150-450 N [facility] RBC 5.22 10 10*6/mm3 4.30-6.10 N [facility] RDW 13.0 % 11.5-14.5 N [facility] WBC TOTAL 8.2 4.0-10.0 N [facility] ID Date Data Source [id number] 09/30/2019 03:16:00 AM EDT [facility] Name Value Range Interpretation Code Description Data Lelie rce(s) Supporting Document(s) BG FASTING 100 mg/dL 70-100 N [facility] T4, FREE 1.04 ng/dL 0.76-1.46 [facility] TSH 2.080 microintl units/mL 0.358-3.740 [facility] Procedure Social History Code Duration Value Status Description Data Source(s ) Smoking 01/07/2020 12:00:00 AM EST Patient is a former smoker completed Patient is a former smoker [facility] ([facility]) Vital Signs ID Date Data Source UNK Name Value Range Interpretation Code Description Data Source(s) Respiratory rate 12 /min 12 /min [facility] ( [facility], ) Body height 72 [in_i] 72 [in_i] [facility], ) 6'0" Body weight 214.00 [lb_av] 214.00 [lb_av] MEDEN T ([facility], ) Body mass index (BMI) [Ratio] 29.0 kg/m2 29.0 k g/m2 [facility] ([facility], ) [place] body weight 178 [lb_av] 178 [lb_av] MEDEN T ([facility], ) Body temperature 97.7 [degF] 97.7 [degF] MEDENT ([facility] ) Body height 72 [in_i] 72 [in_i] MEDENT ([facility]) 6'0" Body weight 214.12 [lb_av] 214.12 [lb_av] MEDEN T ([facility]) Body mass index (BMI) [Ratio] 29.0 kg/m2 29.0 k g/m2 [facility] ([facility]) Body height 72 [in_i] 72 [in_i] HILDA ([facility]) Diastolic blood pressure 76 mm[Hg] 76 mm[Hg] HILDA ([facility]) Systolic blood pressure 123 mm[Hg] 123 mm[Hg] [facility] Body weight 3507.2 [oz_av] 3507.2 [oz_av] ATHEN A ([facility]) Body mass index (BMI) [Ratio] 29.7 kg/m2 29.7 k g/m2 HILDA ([facility]) Diastolic blood pressure 76 mm[Hg] 76 mm[Hg] HILDA ([facility]) Body height 72 [in_i] 72 [in_i] HILDA ([facility]) Body mass index (BMI) [Ratio] 29.7 kg/m2 29.7 k g/m2 HILDA ([facility]) Systolic blood pressure 123 mm[Hg] 123 mm[Hg] A THENA ([facility]) Body weight 3507.2 [oz_av] 3507.2 [oz_av] ATHEN A ([facility]) Diastolic blood pressure 76 mm[Hg] 76 mm[Hg] HILDA ([facility]) Body height 72 [in_i] 72 [in_i] HILDA ([facility]) Body mass index (BMI) [Ratio] 29.7 kg/m2 29.7 k g/m2 [facility]DA ([facility]) Systolic blood pressure 123 mm[Hg] 123 mm[Hg] A THENA ([facility]) Body weight 3507.2 [oz_av] 3507.2 [oz_av] ATHEN A ([facility]) Body mass index (BMI) [Ratio] 29.7 kg/m2 29.7 k g/m2 HILDA ([facility]) Diastolic blood pressure 76 mm[Hg] 76 mm[Hg] HILDA ([facility]) Body height 72 [in_i] 72 [in_i] HILDA ([facility]) Systolic blood pressure 123 mm[Hg] 123 mm[Hg] A LUISA ([facility]) Body weight 3507.2 [oz_av] 3507.2 [oz_av] ATHEN A ([facility]) Diastolic blood pressure 76 mm[Hg] 76 mm[Hg] HILDA ([facility]) Body height 72 [in_i] 72 [in_i] HILDA ([facility]) Body mass index (BMI) [Ratio] 29.7 kg/m2 29.7 k g/m2 HILDA ([facility]) Systolic blood pressure 123 mm[Hg] 123 mm[Hg] A MOIZ ([facility]) Body weight 3507.2 [oz_av] 3507.2 [oz_av] ATHEN A ([facility]) Diastolic blood pressure 76 mm[Hg] 76 mm[Hg] HILDA ([facility]) Body height 72 [in_i] 72 [in_i] HILDA ([facility]) Body mass index (BMI) [Ratio] 29.7 kg/m2 29.7 k g/m2 HILDA ([facility]) Systolic blood pressure 123 mm[Hg] 123 mm[Hg] A MOIZ ([facility]) Body weight 3507.2 [oz_av] 3507.2 [oz_av] ATHEN A ([facility]) Diastolic blood pressure 76 mm[Hg] 76 mm[Hg] HILDA ([facility]) Body height 72 [in_i] 72 [in_i] HILDA ([facility]) Body mass index (BMI) [Ratio] 29.7 kg/m2 29.7 k g/m2 HILDA ([facility]) Systolic blood pressure 123 mm[Hg] 123 mm[Hg] [facility]) Body weight 3507.2 [oz_av] 3507.2 [oz_av] ATHEN A ([facility]) Diastolic blood pressure 76 mm[Hg] 76 mm[Hg] HILDA ([facility]) Body height 72 [in_i] 72 [in_i] HILDA ([facility]) Body mass index (BMI) [Ratio] 29.7 kg/m2 29.7 k g/m2 [facility]DA ([facility]) Systolic blood pressure 123 mm[Hg] 123 mm[Hg] [facility]) Body weight 3507.2 [oz_av] 3507.2 [oz_av] ATHEN A ([facility]) Diastolic blood pressure 76 mm[Hg] 76 mm[Hg] HILDA ([facility]) Body height 72 [in_i] 72 [in_i] HILDA ([facility]) Body mass index (BMI) [Ratio] 29.7 kg/m2 29.7 k g/m2 HILDA ([facility]) Systolic blood pressure 123 mm[Hg] 123 mm[Hg] A [facility] ([facility]) Body weight 3507.2 [oz_av] 3507.2 [oz_av] ATHEN A ([facility]) Diastolic blood pressure 76 mm[Hg] 76 mm[Hg] HILDA ([facility]) Body height 72 [in_i] 72 [in_i] HILDA ([facility]) Body mass index (BMI) [Ratio] 29.7 kg/m2 29.7 k g/m2 HILDA ([facility]) Systolic blood pressure 123 mm[Hg] 123 mm[Hg] A [facility]) Body weight 3507.2 [oz_av] 3507.2 [oz_av] ATHEN A ([facility]) Systolic blood pressure 123 mm[Hg] 123 mm[Hg] A [facility]) Body weight 3507.2 [oz_av] 3507.2 [oz_av] ATHEN A ([facility]) Diastolic blood pressure 76 mm[Hg] 76 mm[Hg] HILDA ([facility]) Body height 72 [in_i] 72 [in_i] HILDA ([facility]) Body mass index (BMI) [Ratio] 29.7 kg/m2 29.7 k g/m2 [facility]ILDA ([facility]) Diastolic blood pressure 76 mm[Hg] 76 mm[Hg] HILDA ([facility]) Body height 72 [in_i] 72 [in_i] HILDA ([facility]) Body mass index (BMI) [Ratio] 29.7 kg/m2 29.7 k g/m2 HILDA ([facility]) Systolic blood pressure 123 mm[Hg] 123 mm[Hg] A [facility]) Body weight 3507.2 [oz_av] 3507.2 [oz_av] ATHEN A ([facility]) Diastolic blood pressure 76 mm[Hg] 76 mm[Hg] HILDA ([facility]) Body height 72 [in_i] 72 [in_i] HILDA ([facility]) Body mass index (BMI) [Ratio] 29.7 kg/m2 29.7 k g/m2 [facility]ILDA ([facility]) Systolic blood pressure 123 mm[Hg] 123 mm[Hg] A [facility]) Body weight 3507.2 [oz_av] 3507.2 [oz_av] ATHEN A ([facility]) Diastolic blood pressure 76 mm[Hg] 76 mm[Hg] HILDA ([facility]) Body height 72 [in_i] 72 [in_i] HILDA ([facility]) Body mass index (BMI) [Ratio] 29.7 kg/m2 29.7 k g/m2 HILDA ([facility]) Systolic blood pressure 123 mm[Hg] 123 mm[Hg] A THENA ([facility]) Body weight 3507.2 [oz_av] 3507.2 [oz_av] ATHEN A ([facility]) Diastolic blood pressure 76 mm[Hg] 76 mm[Hg] HILDA ([facility]) Body height 72 [in_i] 72 [in_i] HILDA ([facility]) Body mass index (BMI) [Ratio] 29.7 kg/m2 29.7 k g/m2 HILDA ([facility]) Systolic blood pressure 123 mm[Hg] 123 mm[Hg] A [facility] ([facility]) Body weight 3507.2 [oz_av] 3507.2 [oz_av] ATHEN A ([facility]) Body weight 3507.2 [oz_av] 3507.2 [oz_av] ATHEN A ([facility]) Diastolic blood pressure 76 mm[Hg] 76 mm[Hg] HILDA ([facility]) Body height 72 [in_i] 72 [in_i] HILDA ([facility]) Body mass index (BMI) [Ratio] 29.7 kg/m2 29.7 k g/m2 [facility]DA ([facility]) Systolic blood pressure 123 mm[Hg] 123 mm[Hg] A [facility]) Diastolic blood pressure 76 mm[Hg] 76 mm[Hg] HILDA ([facility]) Body height 72 [in_i] 72 [in_i] HILDA ([facility]) Body mass index (BMI) [Ratio] 29.7 kg/m2 29.7 k g/m2 [facility]ILDA ([facility]) Systolic blood pressure 123 mm[Hg] 123 mm[Hg] A THENA ([facility]) Body weight 3507.2 [oz_av] 3507.2 [oz_av] ATHEN A ([facility]) Diastolic blood pressure 76 mm[Hg] 76 mm[Hg] HILDA ([facility]) Body height 72 [in_i] 72 [in_i] HILDA ([facility]) Body mass index (BMI) [Ratio] 29.7 kg/m2 29.7 k g/m2 [facility]DA ([facility]) Systolic blood pressure 123 mm[Hg] 123 mm[Hg] A THENA ([facility]) Body weight 3507.2 [oz_av] 3507.2 [oz_av] ATHEN A ([facility]) Diastolic blood pressure 76 mm[Hg] 76 mm[Hg] HILDA ([facility]) Body height 72 [in_i] 72 [in_i] HILDA ([facility]) Body mass index (BMI) [Ratio] 29.7 kg/m2 29.7 k g/m2 HILDA ([facility]) Systolic blood pressure 123 mm[Hg] 123 mm[Hg] A THENA ([facility]) Body weight 3507.2 [oz_av] 3507.2 [oz_av] ATHEN A ([facility]) Diastolic blood pressure 73 mm[Hg] 73 mm[Hg] HILDA ([facility]) Body height 72 [in_i] 72 [in_i] HILDA ([facility]) Body mass index (BMI) [Ratio] 30.5 kg/m2 30.5 k g/m2 HILDA ([facility]) Systolic blood pressure 119 mm[Hg] 119 mm[Hg] A [facility] ([facility]) Body weight 3603.2 [oz_av] 3603.2 [oz_av] ATHEN A ([facility]) Diastolic blood pressure 73 mm[Hg] 73 mm[Hg] HILDA ([facility]) Body height 72 [in_i] 72 [in_i] HILDA ([facility]) Body mass index (BMI) [Ratio] 30.5 kg/m2 30.5 k g/m2 HILDA ([facility]) Systolic blood pressure 119 mm[Hg] 119 mm[Hg] A [facility] ([facility]) Body weight 3603.2 [oz_av] 3603.2 [oz_av] ATHEN A ([facility]) Diastolic blood pressure 73 mm[Hg] 73 mm[Hg] HILDA ([facility]) Body height 72 [in_i] 72 [in_i] HILDA ([facility]) Body mass index (BMI) [Ratio] 30.5 kg/m2 30.5 k g/m2 [facility] ([facility]) Systolic blood pressure 119 mm[Hg] 119 mm[Hg] A THENA ([facility]) Body weight 3603.2 [oz_av] 3603.2 [oz_av] ATHEN A ([facility]) Diastolic blood pressure 73 mm[Hg] 73 mm[Hg] HILDA ([facility]) Body height 72 [in_i] 72 [in_i] HILDA ([facility]) Body mass index (BMI) [Ratio] 30.5 kg/m2 30.5 k g/m2 [facility]DA ([facility]) Systolic blood pressure 119 mm[Hg] 119 mm[Hg] A MOIZ ([facility]) Body weight 3603.2 [oz_av] 3603.2 [oz_av] ATHEN A ([facility]) Diastolic blood pressure 73 mm[Hg] 73 mm[Hg] HILDA ([facility]) Body height 72 [in_i] 72 [in_i] HILDA ([facility]) Body mass index (BMI) [Ratio] 30.5 kg/m2 30.5 k g/m2 [facility]DA ([facility]) Systolic blood pressure 119 mm[Hg] 119 mm[Hg] A THENA ([facility]) Body weight 3603.2 [oz_av] 3603.2 [oz_av] ATHEN A ([facility]) Diastolic blood pressure 73 mm[Hg] 73 mm[Hg] HILDA ([facility]) Body height 72 [in_i] 72 [in_i] HILDA ([facility]) Body mass index (BMI) [Ratio] 30.5 kg/m2 30.5 k g/m2 [facility]ILDA ([facility]) Systolic blood pressure 119 mm[Hg] 119 mm[Hg] A THENA ([facility]) Body weight 3603.2 [oz_av] 3603.2 [oz_av] ATHEN A ([facility]) Diastolic blood pressure 73 mm[Hg] 73 mm[Hg] HILDA ([facility]) Body height 72 [in_i] 72 [in_i] HILDA ([facility]) Body mass index (BMI) [Ratio] 30.5 kg/m2 30.5 k g/m2 [facility]DA ([facility]) Systolic blood pressure 119 mm[Hg] 119 mm[Hg] A THENA ([facility]) Body weight 3603.2 [oz_av] 3603.2 [oz_av] ATHEN A ([facility]) Diastolic blood pressure 73 mm[Hg] 73 mm[Hg] HILDA ([facility]) Body height 72 [in_i] 72 [in_i] HILDA ([facility]) Body mass index (BMI) [Ratio] 30.5 kg/m2 30.5 k g/m2 [facility]ILDA ([facility]) Systolic blood pressure 119 mm[Hg] 119 mm[Hg] A THENA ([facility]) Body weight 3603.2 [oz_av] 3603.2 [oz_av] ATHEN A ([facility]) Diastolic blood pressure 73 mm[Hg] 73 mm[Hg] HILDA ([facility]) Body height 72 [in_i] 72 [in_i] HILDA ([facility]) Body mass index (BMI) [Ratio] 30.5 kg/m2 30.5 k g/m2 [facility]ILDA ([facility]) Systolic blood pressure 119 mm[Hg] 119 mm[Hg] [facility]) Body weight 3603.2 [oz_av] 3603.2 [oz_av] ATHEN A ([facility]) Diastolic blood pressure 73 mm[Hg] 73 mm[Hg] HILDA ([facility]) Body height 72 [in_i] 72 [in_i] HILDA ([facility]) Body mass index (BMI) [Ratio] 30.5 kg/m2 30.5 k g/m2 HLIDA ([facility]) Systolic blood pressure 119 mm[Hg] 119 mm[Hg] A LUISA ([facility]) Body weight 3603.2 [oz_av] 3603.2 [oz_av] ATHEN A ([facility]) Diastolic blood pressure 73 mm[Hg] 73 mm[Hg] HILDA ([facility]) Body height 72 [in_i] 72 [in_i] HILDA ([facility]) Body mass index (BMI) [Ratio] 30.5 kg/m2 30.5 k g/m2 HILDA ([facility]) Systolic blood pressure 119 mm[Hg] 119 mm[Hg] A THENA ([facility]) Body weight 3603.2 [oz_av] 3603.2 [oz_av] ATHEN A ([facility]) Body height 72 [in_i] 72 [in_i] HILDA ([facility]) Body mass index (BMI) [Ratio] 30.5 kg/m2 30.5 k g/m2 [facility]DA ([facility]) Systolic blood pressure 119 mm[Hg] 119 mm[Hg] [facility]) Diastolic blood pressure 73 mm[Hg] 73 mm[Hg] HILDA ([facility]) Body weight 3603.2 [oz_av] 3603.2 [oz_av] ATHEN A ([facility]) Diastolic blood pressure 73 mm[Hg] 73 mm[Hg] HILDA ([facility]) Body height 72 [in_i] 72 [in_i] HILDA ([facility]) Body mass index (BMI) [Ratio] 30.5 kg/m2 30.5 k g/m2 [facility]DA ([facility]) Systolic blood pressure 119 mm[Hg] 119 mm[Hg] A THENA ([facility]) Body weight 3603.2 [oz_av] 3603.2 [oz_av] ATHEN A ([facility]) Body height 72 [in_i] 72 [in_i] HILDA ([facility]) Body mass index (BMI) [Ratio] 30.5 kg/m2 30.5 k g/m2 [facility] ([facility]) Systolic blood pressure 119 mm[Hg] 119 mm[Hg] [facility]) Body weight 3603.2 [oz_av] 3603.2 [oz_av] ATHEN A ([facility]) Diastolic blood pressure 73 mm[Hg] 73 mm[Hg] HILDA ([facility]) Diastolic blood pressure 73 mm[Hg] 73 mm[Hg] HILDA ([facility]) Body height 72 [in_i] 72 [in_i] [facility]ILDA ([facility]) Body mass index (BMI) [Ratio] 30.5 kg/m2 30.5 k g/m2 [facility] ([facility]) Systolic blood pressure 119 mm[Hg] 119 mm[Hg] A THENA ([facility]) Body weight 3603.2 [oz_av] 3603.2 [oz_av] ATHEN A ([facility]) Body mass index (BMI) [Ratio] 30.5 kg/m2 30.5 k g/m2 [facility]DA ([facility]) Diastolic blood pressure 73 mm[Hg] 73 mm[Hg] HILDA ([facility]) Body height 72 [in_i] 72 [in_i] [facility]DA ([facility]) Systolic blood pressure 119 mm[Hg] 119 mm[Hg] A MOIZ ([facility]) Body weight 3603.2 [oz_av] 3603.2 [oz_av] ATHEN A ([facility]) Diastolic blood pressure 73 mm[Hg] 73 mm[Hg] HILDA ([facility]) Body height 72 [in_i] 72 [in_i] HILDA ([facility]) Body mass index (BMI) [Ratio] 30.5 kg/m2 30.5 k g/m2 [facility] ([facility]) Systolic blood pressure 119 mm[Hg] 119 mm[Hg] A MOIZ ([facility]) Body weight 3603.2 [oz_av] 3603.2 [oz_av] ATHEN A ([facility]) Diastolic blood pressure 73 mm[Hg] 73 mm[Hg] HILDA ([facility]) Body height 72 [in_i] 72 [in_i] [facility]ILDA ([facility]) Body mass index (BMI) [Ratio] 30.5 kg/m2 30.5 k g/m2 [facility] ([facility]) Systolic blood pressure 119 mm[Hg] 119 mm[Hg] A MOIZ ([facility]) Body weight 3603.2 [oz_av] 3603.2 [oz_av] ATHEN A ([facility]) Diastolic blood pressure 73 mm[Hg] 73 mm[Hg] HILDA ([facility]) Body height 72 [in_i] 72 [in_i] HILDA ([facility]) Body mass index (BMI) [Ratio] 30.5 kg/m2 30.5 k g/m2 [facility] ([facility]) Systolic blood pressure 119 mm[Hg] 119 mm[Hg] [facility] Body weight 3603.2 [oz_av] 3603.2 [oz_av] ATHEN A ([facility]) Diastolic blood pressure 73 mm[Hg] 73 mm[Hg] HILDA ([facility]) Body height 72 [in_i] 72 [in_i] HILDA ([facility]) Body mass index (BMI) [Ratio] 30.5 kg/m2 30.5 k g/m2 [facility]ILDA ([facility]) Systolic blood pressure 119 mm[Hg] 119 mm[Hg] [facility]) Body weight 3603.2 [oz_av] 3603.2 [oz_av] ATHEN A ([facility]) Diastolic blood pressure 73 mm[Hg] 73 mm[Hg] HILDA ([facility]) Body height 72 [in_i] 72 [in_i] HILDA ([facility]) Body mass index (BMI) [Ratio] 30.5 kg/m2 30.5 k g/m2 HILDA ([facility]) Systolic blood pressure 119 mm[Hg] 119 mm[Hg] A [facility] ([facility]) Body weight 3603.2 [oz_av] 3603.2 [oz_av] ATHEN A ([facility]) Body mass index (BMI) [Ratio] 30.3 kg/m2 30.3 k g/m2 HILDA ([facility]) Systolic blood pressure 128 mm[Hg] 128 mm[Hg] [facility]) Diastolic blood pressure 81 mm[Hg] 81 mm[Hg] HILDA ([facility]) Body height 72 [in_i] 72 [in_i] HILDA ([facility]) Body mass index (BMI) [Ratio] 30.3 kg/m2 30.3 k g/m2 [facility]ILDA ([facility]) Systolic blood pressure 128 mm[Hg] 128 mm[Hg] [facility]) Body weight 3574.4 [oz_av] 3574.4 [oz_av] ATHEN A ([facility]) Diastolic blood pressure 81 mm[Hg] 81 mm[Hg] HILDA ([facility]) Body height 72 [in_i] 72 [in_i] HILDA ([facility]) Body mass index (BMI) [Ratio] 30.3 kg/m2 30.3 k g/m2 [facility]ILDA ([facility]) Systolic blood pressure 128 mm[Hg] 128 mm[Hg] A THENA ([facility]) Body weight 3574.4 [oz_av] 3574.4 [oz_av] ATHEN A ([facility]) Body mass index (BMI) [Ratio] 30.3 kg/m2 30.3 k g/m2 HILDA ([facility]) Diastolic blood pressure 81 mm[Hg] 81 mm[Hg] HILDA ([facility]) Body height 72 [in_i] 72 [in_i] HILDA ([facility]) Systolic blood pressure 128 mm[Hg] 128 mm[Hg] A THENA ([facility]) Body weight 3574.4 [oz_av] 3574.4 [oz_av] ATHEN A ([facility]) Body weight 3574.4 [oz_av] 3574.4 [oz_av] ATHEN A ([facility]) Diastolic blood pressure 81 mm[Hg] 81 mm[Hg] HILDA ([facility]) Body height 72 [in_i] 72 [in_i] HILDA ([facility]) Body mass index (BMI) [Ratio] 30.3 kg/m2 30.3 k g/m2 [facility]ILDA ([facility]) Systolic blood pressure 128 mm[Hg] 128 mm[Hg] [facility]) Diastolic blood pressure 81 mm[Hg] 81 mm[Hg] HILDA ([facility]) Body height 72 [in_i] 72 [in_i] HILDA ([facility]) Body mass index (BMI) [Ratio] 30.3 kg/m2 30.3 k g/m2 [facility]DA ([facility]) Systolic blood pressure 128 mm[Hg] 128 mm[Hg] A THENA ([facility]) Body weight 3574.4 [oz_av] 3574.4 [oz_av] ATHEN A ([facility]) Diastolic blood pressure 81 mm[Hg] 81 mm[Hg] HILDA ([facility]) Body height 72 [in_i] 72 [in_i] HILDA ([facility]) Body mass index (BMI) [Ratio] 30.3 kg/m2 30.3 k g/m2 [facility]DA ([facility]) Systolic blood pressure 128 mm[Hg] 128 mm[Hg] A LUISA ([facility]) Body weight 3574.4 [oz_av] 3574.4 [oz_av] ATHMIMI A ([facility]) Body mass index (BMI) [Ratio] 30.3 kg/m2 30.3 k g/m2 [facility]ILDA ([facility]) Diastolic blood pressure 81 mm[Hg] 81 mm[Hg] HILDA ([facility]) Body height 72 [in_i] 72 [in_i] HILDA ([facility]) Systolic blood pressure 128 mm[Hg] 128 mm[Hg] A MOIZ ([facility]) Body weight 3574.4 [oz_av] 3574.4 [oz_av] ATHEN A ([facility]) Diastolic blood pressure 81 mm[Hg] 81 mm[Hg] HILDA ([facility]) Body height 72 [in_i] 72 [in_i] HILDA ([facility]) Body mass index (BMI) [Ratio] 30.3 kg/m2 30.3 k g/m2 [facility] ([facility]) Systolic blood pressure 128 mm[Hg] 128 mm[Hg] A MO[facility] ([facility]) Body weight 3574.4 [oz_av] 3574.4 [oz_av] ATHEN A ([facility]) Diastolic blood pressure 81 mm[Hg] 81 mm[Hg] HILDA ([facility]) Body height 72 [in_i] 72 [in_i] [facility]ILDA ([facility]) Body mass index (BMI) [Ratio] 30.3 kg/m2 30.3 k g/m2 [facility] ([facility]) Systolic blood pressure 128 mm[Hg] 128 mm[Hg] A LUISA ([facility]) Body weight 3574.4 [oz_av] 3574.4 [oz_av] ATHEN A ([facility]) Diastolic blood pressure 81 mm[Hg] 81 mm[Hg] HILDA ([facility]) Body height 72 [in_i] 72 [in_i] [facility]ILDA ([facility]) Body mass index (BMI) [Ratio] 30.3 kg/m2 30.3 k g/m2 [facility]DA ([facility]) Systolic blood pressure 128 mm[Hg] 128 mm[Hg] [facility] Body weight 3574.4 [oz_av] 3574.4 [oz_av] ATHEN A ([facility]) Diastolic blood pressure 81 mm[Hg] 81 mm[Hg] HILDA ([facility]) Body height 72 [in_i] 72 [in_i] [facility]ILDA ([facility]) Body mass index (BMI) [Ratio] 30.3 kg/m2 30.3 k g/m2 [facility]DA ([facility]) Systolic blood pressure 128 mm[Hg] 128 mm[Hg] [facility] Body weight 3574.4 [oz_av] 3574.4 [oz_av] ATHEN A ([facility]) Diastolic blood pressure 81 mm[Hg] 81 mm[Hg] HILDA ([facility]) Body height 72 [in_i] 72 [in_i] HILDA ([facility]) Body weight 3574.4 [oz_av] 3574.4 [oz_av] ATHEN A ([facility]) Diastolic blood pressure 81 mm[Hg] 81 mm[Hg] HILDA ([facility]) Body height 72 [in_i] 72 [in_i] HILDA ([facility]) Body mass index (BMI) [Ratio] 30.3 kg/m2 30.3 k g/m2 HILDA ([facility]) Systolic blood pressure 128 mm[Hg] 128 mm[Hg] [facility]) Body weight 3574.4 [oz_av] 3574.4 [oz_av] ATHEN A ([facility]) Diastolic blood pressure 81 mm[Hg] 81 mm[Hg] HILDA ([facility]) Body height 72 [in_i] 72 [in_i] HILDA ([facility]) Body mass index (BMI) [Ratio] 30.3 kg/m2 30.3 k g/m2 HILDA ([facility]) Systolic blood pressure 128 mm[Hg] 128 mm[Hg] A [facility]) Body weight 3574.4 [oz_av] 3574.4 [oz_av] ATHEN A ([facility]) Diastolic blood pressure 81 mm[Hg] 81 mm[Hg] HILDA ([facility]) Body height 72 [in_i] 72 [in_i] HILDA ([facility]) Body mass index (BMI) [Ratio] 30.3 kg/m2 30.3 k g/m2 HILDA ([facility]) Systolic blood pressure 128 mm[Hg] 128 mm[Hg] A [facility] ([facility]) Body weight 3574.4 [oz_av] 3574.4 [oz_av] ATHEN A ([facility]) Diastolic blood pressure 81 mm[Hg] 81 mm[Hg] HILDA ([facility]) Body height 72 [in_i] 72 [in_i] HILDA ([facility]) Body mass index (BMI) [Ratio] 30.3 kg/m2 30.3 k g/m2 HILDA ([facility]) Systolic blood pressure 128 mm[Hg] 128 mm[Hg] A [facility] ([facility]) Body weight 3574.4 [oz_av] 3574.4 [oz_av] ATHEN A ([facility]) Diastolic blood pressure 81 mm[Hg] 81 mm[Hg] HILDA ([facility]) Body height 72 [in_i] 72 [in_i] HILDA ([facility]) Body mass index (BMI) [Ratio] 30.3 kg/m2 30.3 k g/m2 HILDA ([facility]) Systolic blood pressure 128 mm[Hg] 128 mm[Hg] A THENA ([facility]) Body weight 3574.4 [oz_av] 3574.4 [oz_av] ATHEN A ([facility]) Body mass index (BMI) [Ratio] 30.3 kg/m2 30.3 k g/m2 HILDA ([facility]) Systolic blood pressure 128 mm[Hg] 128 mm[Hg] A THENA ([facility]) Body weight 3574.4 [oz_av] 3574.4 [oz_av] ATHEN A ([facility]) Diastolic blood pressure 81 mm[Hg] 81 mm[Hg] HILDA ([facility]) Body height 72 [in_i] 72 [in_i] HILDA ([facility]) Diastolic blood pressure 81 mm[Hg] 81 mm[Hg] HILDA ([facility]) Body height 72 [in_i] 72 [in_i] HILDA ([facility]) Body mass index (BMI) [Ratio] 30.3 kg/m2 30.3 k g/m2 HILDA ([facility]) Systolic blood pressure 128 mm[Hg] 128 mm[Hg] A [facility] ([facility]) Body weight 3574.4 [oz_av] 3574.4 [oz_av] ATHEN A ([facility]) Diastolic blood pressure 81 mm[Hg] 81 mm[Hg] HILDA ([facility]) Body height 72 [in_i] 72 [in_i] HILDA ([facility]) Body mass index (BMI) [Ratio] 30.3 kg/m2 30.3 k g/m2 HILDA ([facility]) Systolic blood pressure 128 mm[Hg] 128 mm[Hg] A LUISA ([facility]) Body weight 3574.4 [oz_av] 3574.4 [oz_av] ATHEN A ([facility]) Diastolic blood pressure 81 mm[Hg] 81 mm[Hg] HILDA ([facility]) Body height 72 [in_i] 72 [in_i] HILDA ([facility]) Body mass index (BMI) [Ratio] 30.3 kg/m2 30.3 k g/m2 HILDA ([facility]) Systolic blood pressure 128 mm[Hg] 128 mm[Hg] A THENA ([facility]) Body weight 3574.4 [oz_av] 3574.4 [oz_av] ATHEN A ([facility]) Diastolic blood pressure 81 mm[Hg] 81 mm[Hg] HILDA ([facility]) Body height 72 [in_i] 72 [in_i] HILDA ([facility]) Body mass index (BMI) [Ratio] 30.3 kg/m2 30.3 k g/m2 HILDA ([facility]) Systolic blood pressure 128 mm[Hg] 128 mm[Hg] A [facility] ([facility]) Body weight 3574.4 [oz_av] 3574.4 [oz_av] ATHEN A ([facility]) Diastolic blood pressure 81 mm[Hg] 81 mm[Hg] HILDA ([facility]) Body height 72 [in_i] 72 [in_i] HILDA ([facility]) Body mass index (BMI) [Ratio] 30.3 kg/m2 30.3 k g/m2 HILDA ([facility]) Systolic blood pressure 128 mm[Hg] 128 mm[Hg] A [facility] ([facility]) Body weight 3574.4 [oz_av] 3574.4 [oz_av] ATHEN A ([facility]) Diastolic blood pressure 82 mm[Hg] 82 mm[Hg] HILDA ([facility]) Diastolic blood pressure 81 mm[Hg] 81 mm[Hg] HILDA ([facility]) Body height 72 [in_i] 72 [in_i] HILDA ([facility]) Body mass index (BMI) [Ratio] 30.5 kg/m2 30.5 k g/m2 HILDA ([facility]) Systolic blood pressure 127 mm[Hg] 127 mm[Hg] A [facility] ([facility]) Systolic blood pressure 145 mm[Hg] 145 mm[Hg] A THENA ([facility]) Body weight 3596.8 [oz_av] 3596.8 [oz_av] ATHEN A ([facility]) Diastolic blood pressure 82 mm[Hg] 82 mm[Hg] HILDA ([facility]) Diastolic blood pressure 81 mm[Hg] 81 mm[Hg] HILDA ([facility]) Body height 72 [in_i] 72 [in_i] HILDA ([facility]) Body mass index (BMI) [Ratio] 30.5 kg/m2 30.5 k g/m2 HILDA ([facility]) Systolic blood pressure 127 mm[Hg] 127 mm[Hg] A THENA ([facility]) Systolic blood pressure 145 mm[Hg] 145 mm[Hg] A [facility] ([facility]) Body weight 3596.8 [oz_av] 3596.8 [oz_av] ATHEN A ([facility]) Diastolic blood pressure 82 mm[Hg] 82 mm[Hg] HILDA ([facility]) Diastolic blood pressure 81 mm[Hg] 81 mm[Hg] HILDA ([facility]) Body height 72 [in_i] 72 [in_i] HILDA ([facility]) Body mass index (BMI) [Ratio] 30.5 kg/m2 30.5 k g/m2 HILDA ([facility]) Systolic blood pressure 127 mm[Hg] 127 mm[Hg] A [facility] ([facility]) Systolic blood pressure 145 mm[Hg] 145 mm[Hg] A [facility] ([facility]) Body weight 3596.8 [oz_av] 3596.8 [oz_av] ATHEN A ([facility]) Diastolic blood pressure 82 mm[Hg] 82 mm[Hg] HILDA ([facility]) Diastolic blood pressure 81 mm[Hg] 81 mm[Hg] HILDA ([facility]) Body height 72 [in_i] 72 [in_i] HILDA ([facility]) Body mass index (BMI) [Ratio] 30.5 kg/m2 30.5 k g/m2 HILDA ([facility]) Systolic blood pressure 127 mm[Hg] 127 mm[Hg] A THENA ([facility]) Systolic blood pressure 145 mm[Hg] 145 mm[Hg] A THENA ([facility]) Body weight 3596.8 [oz_av] 3596.8 [oz_av] ATHEN A ([facility]) Diastolic blood pressure 82 mm[Hg] 82 mm[Hg] HILDA ([facility]) Diastolic blood pressure 81 mm[Hg] 81 mm[Hg] HILDA ([facility]) Body height 72 [in_i] 72 [in_i] HILDA ([facility]) Body mass index (BMI) [Ratio] 30.5 kg/m2 30.5 k g/m2 HILDA ([facility]) Systolic blood pressure 127 mm[Hg] 127 mm[Hg] A THENA ([facility]) Systolic blood pressure 145 mm[Hg] 145 mm[Hg] A THENA ([facility]) Body weight 3596.8 [oz_av] 3596.8 [oz_av] ATHEN A ([facility]) Diastolic blood pressure 82 mm[Hg] 82 mm[Hg] HILDA ([facility]) Body height 72 [in_i] 72 [in_i] HILDA ([facility]) Body mass index (BMI) [Ratio] 30.5 kg/m2 30.5 k g/m2 HILDA ([facility]) Systolic blood pressure 127 mm[Hg] 127 mm[Hg] A [facility] ([facility]) Diastolic blood pressure 81 mm[Hg] 81 mm[Hg] HILDA ([facility]) Systolic blood pressure 145 mm[Hg] 145 mm[Hg] A [facility] ([facility]) Body weight 3596.8 [oz_av] 3596.8 [oz_av] ATHEN A ([facility]) Diastolic blood pressure 82 mm[Hg] 82 mm[Hg] HILDA ([facility]) Diastolic blood pressure 81 mm[Hg] 81 mm[Hg] HILDA ([facility]) Body height 72 [in_i] 72 [in_i] HILDA ([facility]) Body mass index (BMI) [Ratio] 30.5 kg/m2 30.5 k g/m2 HILDA ([facility]) Systolic blood pressure 127 mm[Hg] 127 mm[Hg] A THENA ([facility]) Systolic blood pressure 145 mm[Hg] 145 mm[Hg] A THENA ([facility]) Body weight 3596.8 [oz_av] 3596.8 [oz_av] ATHEN A ([facility]) Diastolic blood pressure 82 mm[Hg] 82 mm[Hg] HILDA ([facility]) Diastolic blood pressure 81 mm[Hg] 81 mm[Hg] HILDA ([facility]) Body height 72 [in_i] 72 [in_i] HILDA ([facility]) Body mass index (BMI) [Ratio] 30.5 kg/m2 30.5 k g/m2 HILDA ([facility]) Systolic blood pressure 127 mm[Hg] 127 mm[Hg] A THENA ([facility]) Systolic blood pressure 145 mm[Hg] 145 mm[Hg] A THENA ([facility]) Body weight 3596.8 [oz_av] 3596.8 [oz_av] ATHEN A ([facility]) Diastolic blood pressure 82 mm[Hg] 82 mm[Hg] HILDA ([facility]) Diastolic blood pressure 81 mm[Hg] 81 mm[Hg] HILDA ([facility]) Systolic blood pressure 145 mm[Hg] 145 mm[Hg] A THENA ([facility]) Body weight 3596.8 [oz_av] 3596.8 [oz_av] ATHEN A ([facility]) Body height 72 [in_i] 72 [in_i] HILDA ([facility]) Body mass index (BMI) [Ratio] 30.5 kg/m2 30.5 k g/m2 HILDA ([facility]) Systolic blood pressure 127 mm[Hg] 127 mm[Hg] A THENA ([facility]) Diastolic blood pressure 81 mm[Hg] 81 mm[Hg] HILDA ([facility]) Body height 72 [in_i] 72 [in_i] HILDA ([facility]) Body mass index (BMI) [Ratio] 30.5 kg/m2 30.5 k g/m2 HILDA ([facility]) Systolic blood pressure 127 mm[Hg] 127 mm[Hg] A THENA ([facility]) Systolic blood pressure 145 mm[Hg] 145 mm[Hg] A THENA ([facility]) Body weight 3596.8 [oz_av] 3596.8 [oz_av] ATHEN A ([facility]) Diastolic blood pressure 82 mm[Hg] 82 mm[Hg] HILDA ([facility]) Diastolic blood pressure 82 mm[Hg] 82 mm[Hg] HILDA ([facility]) Diastolic blood pressure 81 mm[Hg] 81 mm[Hg] HILDA ([facility]) Body height 72 [in_i] 72 [in_i] HILDA ([facility]) Body mass index (BMI) [Ratio] 30.5 kg/m2 30.5 k g/m2 HILDA ([facility]) Systolic blood pressure 127 mm[Hg] 127 mm[Hg] A [facility] ([facility]) Systolic blood pressure 145 mm[Hg] 145 mm[Hg] A [facility] ([facility]) Body weight 3596.8 [oz_av] 3596.8 [oz_av] ATHEN A ([facility]) Diastolic blood pressure 82 mm[Hg] 82 mm[Hg] HILDA ([facility]) Diastolic blood pressure 81 mm[Hg] 81 mm[Hg] HILDA ([facility]) Body height 72 [in_i] 72 [in_i] HILDA ([facility]) Body mass index (BMI) [Ratio] 30.5 kg/m2 30.5 k g/m2 HILDA ([facility]) Systolic blood pressure 127 mm[Hg] 127 mm[Hg] A [facility] ([facility]) Systolic blood pressure 145 mm[Hg] 145 mm[Hg] A [facility] ([facility]) Body weight 3596.8 [oz_av] 3596.8 [oz_av] ATHEN A ([facility]) Diastolic blood pressure 82 mm[Hg] 82 mm[Hg] HILDA ([facility]) Diastolic blood pressure 81 mm[Hg] 81 mm[Hg] HILDA ([facility]) Body height 72 [in_i] 72 [in_i] HILDA ([facility]) Body mass index (BMI) [Ratio] 30.5 kg/m2 30.5 k g/m2 HILDA ([facility]) Systolic blood pressure 127 mm[Hg] 127 mm[Hg] A [facility] ([facility]) Body weight 3596.8 [oz_av] 3596.8 [oz_av] ATHEN A ([facility]) Systolic blood pressure 145 mm[Hg] 145 mm[Hg] A [facility] ([facility]) Diastolic blood pressure 82 mm[Hg] 82 mm[Hg] HILDA ([facility]) Diastolic blood pressure 81 mm[Hg] 81 mm[Hg] HILDA ([facility]) Body height 72 [in_i] 72 [in_i] HILDA ([facility]) Body mass index (BMI) [Ratio] 30.5 kg/m2 30.5 k g/m2 HILDA ([facility]) Systolic blood pressure 127 mm[Hg] 127 mm[Hg] A THENA ([facility]) Systolic blood pressure 145 mm[Hg] 145 mm[Hg] A THENA ([facility]) Body weight 3596.8 [oz_av] 3596.8 [oz_av] ATHEN A ([facility]) Diastolic blood pressure 82 mm[Hg] 82 mm[Hg] HILDA ([facility]) Diastolic blood pressure 81 mm[Hg] 81 mm[Hg] HILDA ([facility]) Body height 72 [in_i] 72 [in_i] HILDA ([facility]) Body mass index (BMI) [Ratio] 30.5 kg/m2 30.5 k g/m2 HILDA ([facility]) Systolic blood pressure 127 mm[Hg] 127 mm[Hg] A THENA ([facility]) Systolic blood pressure 145 mm[Hg] 145 mm[Hg] A THENA ([facility]) Body weight 3596.8 [oz_av] 3596.8 [oz_av] ATHEN A ([facility]) Diastolic blood pressure 82 mm[Hg] 82 mm[Hg] HILDA ([facility]) Diastolic blood pressure 81 mm[Hg] 81 mm[Hg] HILDA ([facility]) Body height 72 [in_i] 72 [in_i] HILDA ([facility]) Body mass index (BMI) [Ratio] 30.5 kg/m2 30.5 k g/m2 HILDA ([facility]) Systolic blood pressure 127 mm[Hg] 127 mm[Hg] A THENA ([facility]) Systolic blood pressure 145 mm[Hg] 145 mm[Hg] A THENA ([facility]) Body weight 3596.8 [oz_av] 3596.8 [oz_av] ATHEN A ([facility]) Body weight 3596.8 [oz_av] 3596.8 [oz_av] ATHEN A ([facility]) Diastolic blood pressure 82 mm[Hg] 82 mm[Hg] HILDA ([facility]) Diastolic blood pressure 81 mm[Hg] 81 mm[Hg] HILDA ([facility]) Body height 72 [in_i] 72 [in_i] HILDA ([facility]) Body mass index (BMI) [Ratio] 30.5 kg/m2 30.5 k g/m2 HILDA ([facility]) Systolic blood pressure 127 mm[Hg] 127 mm[Hg] A THENA ([facility]) Systolic blood pressure 145 mm[Hg] 145 mm[Hg] A THENA ([facility]) Diastolic blood pressure 82 mm[Hg] 82 mm[Hg] HILDA ([facility]) Diastolic blood pressure 81 mm[Hg] 81 mm[Hg] HILDA ([facility]) Body height 72 [in_i] 72 [in_i] HILDA ([facility]) Body mass index (BMI) [Ratio] 30.5 kg/m2 30.5 k g/m2 HILDA ([facility]) Systolic blood pressure 127 mm[Hg] 127 mm[Hg] A THENA ([facility]) Systolic blood pressure 145 mm[Hg] 145 mm[Hg] A [facility] ([facility]) Body weight 3596.8 [oz_av] 3596.8 [oz_av] ATHEN A ([facility]) Diastolic blood pressure 82 mm[Hg] 82 mm[Hg] HILDA ([facility]) Diastolic blood pressure 81 mm[Hg] 81 mm[Hg] HILDA ([facility]) Body height 72 [in_i] 72 [in_i] HILDA ([facility]) Body mass index (BMI) [Ratio] 30.5 kg/m2 30.5 k g/m2 HILDA ([facility]) Systolic blood pressure 127 mm[Hg] 127 mm[Hg] A THENA ([facility]) Systolic blood pressure 145 mm[Hg] 145 mm[Hg] A THENA ([facility]) Body weight 3596.8 [oz_av] 3596.8 [oz_av] ATHEN A ([facility]) Diastolic blood pressure 82 mm[Hg] 82 mm[Hg] HILDA ([facility]) Diastolic blood pressure 81 mm[Hg] 81 mm[Hg] HILDA ([facility]) Body height 72 [in_i] 72 [in_i] HILDA ([facility]) Body mass index (BMI) [Ratio] 30.5 kg/m2 30.5 k g/m2 HILDA ([facility]) Systolic blood pressure 127 mm[Hg] 127 mm[Hg] A THENA ([facility]) Systolic blood pressure 145 mm[Hg] 145 mm[Hg] A [facility] ([facility]) Body weight 3596.8 [oz_av] 3596.8 [oz_av] ATHEN A ([facility]) Diastolic blood pressure 82 mm[Hg] 82 mm[Hg] HILDA ([facility]) Diastolic blood pressure 81 mm[Hg] 81 mm[Hg] HILDA ([facility]) Body height 72 [in_i] 72 [in_i] HILDA ([facility]) Body mass index (BMI) [Ratio] 30.5 kg/m2 30.5 k g/m2 HILDA ([facility]) Systolic blood pressure 127 mm[Hg] 127 mm[Hg] A THENA ([facility]) Systolic blood pressure 145 mm[Hg] 145 mm[Hg] A [facility] ([facility]) Body weight 3596.8 [oz_av] 3596.8 [oz_av] ATHEN A ([facility]) Diastolic blood pressure 82 mm[Hg] 82 mm[Hg] HILDA ([facility]) Diastolic blood pressure 81 mm[Hg] 81 mm[Hg] HILDA ([facility]) Body height 72 [in_i] 72 [in_i] HILDA ([facility]) Body mass index (BMI) [Ratio] 30.5 kg/m2 30.5 k g/m2 HILDA ([facility]) Systolic blood pressure 127 mm[Hg] 127 mm[Hg] A THENA ([facility]) Systolic blood pressure 145 mm[Hg] 145 mm[Hg] A THENA ([facility]) Body weight 3596.8 [oz_av] 3596.8 [oz_av] ATHEN A ([facility]) Body weight 3596.8 [oz_av] 3596.8 [oz_av] ATHEN A ([facility]) Diastolic blood pressure 82 mm[Hg] 82 mm[Hg] HILDA ([facility]) Diastolic blood pressure 81 mm[Hg] 81 mm[Hg] HILDA ([facility]) Body height 72 [in_i] 72 [in_i] HILDA ([facility]) Body mass index (BMI) [Ratio] 30.5 kg/m2 30.5 k g/m2 HILDA ([facility]) Systolic blood pressure 127 mm[Hg] 127 mm[Hg] A [facility] ([facility]) Systolic blood pressure 145 mm[Hg] 145 mm[Hg] A [facility] ([facility]) Diastolic blood pressure 82 mm[Hg] 82 mm[Hg] HILDA ([facility]) Diastolic blood pressure 81 mm[Hg] 81 mm[Hg] HILDA ([facility]) Body height 72 [in_i] 72 [in_i] HILDA ([facility]) Body mass index (BMI) [Ratio] 30.5 kg/m2 30.5 k g/m2 HILDA ([facility]) Systolic blood pressure 127 mm[Hg] 127 mm[Hg] A THENA ([facility]) Systolic blood pressure 145 mm[Hg] 145 mm[Hg] A THENA ([facility]) Body weight 3596.8 [oz_av] 3596.8 [oz_av] ATHEN A ([facility]) Diastolic blood pressure 82 mm[Hg] 82 mm[Hg] HILDA ([facility]) Diastolic blood pressure 81 mm[Hg] 81 mm[Hg] HILDA ([facility]) Body height 72 [in_i] 72 [in_i] HILDA ([facility]) Body mass index (BMI) [Ratio] 30.5 kg/m2 30.5 k g/m2 HILDA ([facility]) Systolic blood pressure 127 mm[Hg] 127 mm[Hg] A THENA ([facility]) Systolic blood pressure 145 mm[Hg] 145 mm[Hg] A THENA ([facility]) Body weight 3596.8 [oz_av] 3596.8 [oz_av] ATHEN A ([facility]) Diastolic blood pressure 82 mm[Hg] 82 mm[Hg] HILDA ([facility]) Diastolic blood pressure 81 mm[Hg] 81 mm[Hg] HILDA ([facility]) Body height 72 [in_i] 72 [in_i] HILDA ([facility]) Body mass index (BMI) [Ratio] 30.5 kg/m2 30.5 k g/m2 HILDA ([facility]) Systolic blood pressure 127 mm[Hg] 127 mm[Hg] A [facility] ([facility]) Systolic blood pressure 145 mm[Hg] 145 mm[Hg] A [facility] ([facility]) Body weight 3596.8 [oz_av] 3596.8 [oz_av] ATHEN A ([facility]) Diastolic blood pressure 82 mm[Hg] 82 mm[Hg] HILDA ([facility]) Diastolic blood pressure 81 mm[Hg] 81 mm[Hg] HILDA ([facility]) Body height 72 [in_i] 72 [in_i] HILDA ([facility]) Body mass index (BMI) [Ratio] 30.5 kg/m2 30.5 k g/m2 HILDA ([facility]) Systolic blood pressure 127 mm[Hg] 127 mm[Hg] A THENA ([facility]) Systolic blood pressure 145 mm[Hg] 145 mm[Hg] A THENA ([facility]) Body weight 3596.8 [oz_av] 3596.8 [oz_av] ATHEN A ([facility]) Respiratory rate 16 /min 16 /min MEDJUAN RAMON ( [facility]) Body weight 222.00 [lb_av] 222.00 [lb_av] CELESTINO T ([facility]) Body height 72 [in_i] 72 [in_i] RANGEL ([facility] 6'0" Body mass index (BMI) [Ratio] 30.1 kg/m2 30.1 k g/m2 MEDJUAN RAMON ([facility]) Heart rate 52 /min 52 /min MEDENT ([facility]) regular Systolic blood pressure--sitting 108 mm[Hg] 108 mm[Hg] MEDENT ([facility]) large cuff, Ra; 110/72 [place] Diastolic blood pressure--sitting 68 mm[Hg] 68 mm[Hg] MEDENT ([facility]) large cuff, Ra; 110/72 [place] Systolic blood pressure--supine 108 mm[Hg] 108 mm[Hg] MEDENT ([facility]) Ra Diastolic blood pressure--supine 68 mm[Hg] 68 mm[Hg] MEDENT ([facility]) Ra Diastolic blood pressure 81 mm[Hg] 81 mm[Hg] HILDA ([facility]) Body mass index (BMI) [Ratio] 30.2 kg/m2 30.2 k g/m2 [facility] ([facility]) Systolic blood pressure 120 mm[Hg] 120 mm[Hg] A [facility] ([facility]) Body weight 3568 [oz_av] 3568 [oz_av] [facility] ([facility]) Body height 72 [in_i] 72 [in_i] [facility] ([facility]) Diastolic blood pressure 81 mm[Hg] 81 mm[Hg] [facility] ([facility]) Body height 72 [in_i] 72 [in_i] [facility] ([facility]) Body mass index (BMI) [Ratio] 30.2 kg/m2 30.2 k g/m2 [facility] ([facility]) Systolic blood pressure 120 mm[Hg] 120 mm[Hg] A [facility] ([facility]) Body weight 3568 [oz_av] 3568 [oz_av] [facility] ([facility]) Diastolic blood pressure 81 mm[Hg] 81 mm[Hg] [facility] ([facility]) Body height 72 [in_i] 72 [in_i] [facility] ([facility]) Body mass index (BMI) [Ratio] 30.2 kg/m2 30.2 k g/m2 [facility] ([facility]) Systolic blood pressure 120 mm[Hg] 120 mm[Hg] [facility] ([facility]) Body weight 3568 [oz_av] 3568 [oz_av] [facility] ([facility]) Diastolic blood pressure 81 mm[Hg] 81 mm[Hg] [facility] ([facility]) Body height 72 [in_i] 72 [in_i] [facility] ([facility]) Body mass index (BMI) [Ratio] 30.2 kg/m2 30.2 k g/m2 [facility] ([facility]) Systolic blood pressure 120 mm[Hg] 120 mm[Hg] A [facility] ([facility]) Body weight 3568 [oz_av] 3568 [oz_av] [facility] ([facility]) Diastolic blood pressure 81 mm[Hg] 81 mm[Hg] [facility] ([facility]) Body height 72 [in_i] 72 [in_i] [facility] ([facility]) Body mass index (BMI) [Ratio] 30.2 kg/m2 30.2 k g/m2 [facility] ([facility]) Systolic blood pressure 120 mm[Hg] 120 mm[Hg] A [facility] ([facility]) Body weight 3568 [oz_av] 3568 [oz_av] [facility] ([facility]) Diastolic blood pressure 81 mm[Hg] 81 mm[Hg] [facility] ([facility]) Body height 72 [in_i] 72 [in_i] [facility] ([facility]) Body mass index (BMI) [Ratio] 30.2 kg/m2 30.2 k g/m2 [facility] ([facility]) Systolic blood pressure 120 mm[Hg] 120 mm[Hg] A [facility] ([facility]) Body weight 3568 [oz_av] 3568 [oz_av] [facility] ([facility]) Body weight 3568 [oz_av] 3568 [oz_av] [facility] ([facility]) Diastolic blood pressure 81 mm[Hg] 81 mm[Hg] [facility] ([facility]) Body height 72 [in_i] 72 [in_i] [facility] ([facility]) Body mass index (BMI) [Ratio] 30.2 kg/m2 30.2 k g/m2 [facility] ([facility]) Systolic blood pressure 120 mm[Hg] 120 mm[Hg] [facility] Diastolic blood pressure 81 mm[Hg] 81 mm[Hg] [facility] ([facility]) Body height 72 [in_i] 72 [in_i] [facility] ([facility]) Body mass index (BMI) [Ratio] 30.2 kg/m2 30.2 k g/m2 [facility] ([facility]) Systolic blood pressure 120 mm[Hg] 120 mm[Hg] A [facility] ([facility]) Body weight 3568 [oz_av] 3568 [oz_av] [facility] ([facility]) Diastolic blood pressure 81 mm[Hg] 81 mm[Hg] [facility] ([facility]) Body height 72 [in_i] 72 [in_i] [facility] ([facility]) Body weight 3568 [oz_av] 3568 [oz_av] [facility] ([facility]) Body mass index (BMI) [Ratio] 30.2 kg/m2 30.2 k g/m2 [facility] ([facility]) Systolic blood pressure 120 mm[Hg] 120 mm[Hg] [facility]) Diastolic blood pressure 81 mm[Hg] 81 mm[Hg] [facility] ([facility]) Diastolic blood pressure 81 mm[Hg] 81 mm[Hg] [facility] ([facility]) Body height 72 [in_i] 72 [in_i] [facility] ([facility]) Body mass index (BMI) [Ratio] 30.2 kg/m2 30.2 k g/m2 [facility] ([facility]) Systolic blood pressure 120 mm[Hg] 120 mm[Hg] [facility]) Body weight 3568 [oz_av] 3568 [oz_av] [facility] ([facility]) Body height 72 [in_i] 72 [in_i] [facility] ([facility]) Body mass index (BMI) [Ratio] 30.2 kg/m2 30.2 k g/m2 [facility] ([facility]) Systolic blood pressure 120 mm[Hg] 120 mm[Hg] A [facility] ([facility]) Body weight 3568 [oz_av] 3568 [oz_av] [facility] ([facility]) Diastolic blood pressure 81 mm[Hg] 81 mm[Hg] [facility] ([facility]) Body height 72 [in_i] 72 [in_i] [facility] ([facility]) Body mass index (BMI) [Ratio] 30.2 kg/m2 30.2 k g/m2 [facility] ([facility]) Systolic blood pressure 120 mm[Hg] 120 mm[Hg] [facility]) Body weight 3568 [oz_av] 3568 [oz_av] [facility] ([facility]) Diastolic blood pressure 81 mm[Hg] 81 mm[Hg] [facility] ([facility]) Body height 72 [in_i] 72 [in_i] [facility] ([facility]) Body mass index (BMI) [Ratio] 30.2 kg/m2 30.2 k g/m2 [facility] ([facility]) Systolic blood pressure 120 mm[Hg] 120 mm[Hg] A [facility] ([facility]) Body weight 3568 [oz_av] 3568 [oz_av] [facility] ([facility]) Diastolic blood pressure 81 mm[Hg] 81 mm[Hg] [facility] ([facility]) Body height 72 [in_i] 72 [in_i] [facility] ([facility]) Body mass index (BMI) [Ratio] 30.2 kg/m2 30.2 k g/m2 [facility] ([facility]) Systolic blood pressure 120 mm[Hg] 120 mm[Hg] A [facility] ([facility]) Body weight 3568 [oz_av] 3568 [oz_av] [facility] ([facility]) Diastolic blood pressure 81 mm[Hg] 81 mm[Hg] [facility] ([facility]) Body height 72 [in_i] 72 [in_i] [facility] ([facility]) Body mass index (BMI) [Ratio] 30.2 kg/m2 30.2 k g/m2 [facility] ([facility]) Systolic blood pressure 120 mm[Hg] 120 mm[Hg] [facility]) Body weight 3568 [oz_av] 3568 [oz_av] [facility] ([facility]) Diastolic blood pressure 81 mm[Hg] 81 mm[Hg] [facility] ([facility]) Body height 72 [in_i] 72 [in_i] [facility] ([facility]) Body mass index (BMI) [Ratio] 30.2 kg/m2 30.2 k g/m2 [facility] ([facility]) Systolic blood pressure 120 mm[Hg] 120 mm[Hg] [facility]) Body weight 3568 [oz_av] 3568 [oz_av] [facility] ([facility]) Diastolic blood pressure 81 mm[Hg] 81 mm[Hg] [facility] ([facility]) Body height 72 [in_i] 72 [in_i] [facility] ([facility]) Body mass index (BMI) [Ratio] 30.2 kg/m2 30.2 k g/m2 [facility] ([facility]) Systolic blood pressure 120 mm[Hg] 120 mm[Hg] [facility] ([facility]) Body weight 3568 [oz_av] 3568 [oz_av] [facility] ([facility]) Diastolic blood pressure 81 mm[Hg] 81 mm[Hg] [facility] ([facility]) Body height 72 [in_i] 72 [in_i] [facility] ([facility]) Body mass index (BMI) [Ratio] 30.2 kg/m2 30.2 k g/m2 [facility] ([facility]) Systolic blood pressure 120 mm[Hg] 120 mm[Hg] A [facility] ([facility]) Body weight 3568 [oz_av] 3568 [oz_av] [facility] ([facility]) Diastolic blood pressure 81 mm[Hg] 81 mm[Hg] [facility] ([facility]) Body height 72 [in_i] 72 [in_i] [facility] ([facility]) Body mass index (BMI) [Ratio] 30.2 kg/m2 30.2 k g/m2 [facility] ([facility]) Systolic blood pressure 120 mm[Hg] 120 mm[Hg] [facility]) Body weight 3568 [oz_av] 3568 [oz_av] [facility] ([facility]) Diastolic blood pressure 81 mm[Hg] 81 mm[Hg] [facility] ([facility]) Body height 72 [in_i] 72 [in_i] [facility] ([facility]) Body mass index (BMI) [Ratio] 30.2 kg/m2 30.2 k g/m2 [facility] ([facility]) Systolic blood pressure 120 mm[Hg] 120 mm[Hg] [facility] ([facility]) Body weight 3568 [oz_av] 3568 [oz_av] [facility] ([facility]) Diastolic blood pressure 81 mm[Hg] 81 mm[Hg] [facility] ([facility]) Body height 72 [in_i] 72 [in_i] [facility] ([facility]) Body mass index (BMI) [Ratio] 30.2 kg/m2 30.2 k g/m2 [facility] ([facility]) Systolic blood pressure 120 mm[Hg] 120 mm[Hg] [facility] ([facility]) Body weight 3568 [oz_av] 3568 [oz_av] [facility] ([facility]) Diastolic blood pressure 81 mm[Hg] 81 mm[Hg] [facility] ([facility]) Body height 72 [in_i] 72 [in_i] [facility] ([facility]) Body mass index (BMI) [Ratio] 30.2 kg/m2 30.2 k g/m2 [facility] ([facility]) Systolic blood pressure 120 mm[Hg] 120 mm[Hg] [facility]) Body weight 3568 [oz_av] 3568 [oz_av] [facility] ([facility]) Diastolic blood pressure 81 mm[Hg] 81 mm[Hg] [facility] ([facility]) Body height 72 [in_i] 72 [in_i] [facility] ([facility]) Systolic blood pressure 120 mm[Hg] 120 mm[Hg] [facility] ([facility]) Body mass index (BMI) [Ratio] 30.2 kg/m2 30.2 k g/m2 [facility] ([facility]) Body weight 3568 [oz_av] 3568 [oz_av] [facility] ([facility]) Diastolic blood pressure 81 mm[Hg] 81 mm[Hg] [facility] ([facility]) Body height 72 [in_i] 72 [in_i] [facility] ([facility]) Body mass index (BMI) [Ratio] 30.2 kg/m2 30.2 k g/m2 [facility] ([facility]) Systolic blood pressure 120 mm[Hg] 120 mm[Hg] [facility]) Body weight 3568 [oz_av] 3568 [oz_av] [facility] ([facility]) Diastolic blood pressure 81 mm[Hg] 81 mm[Hg] [facility] ([facility]) Body height 72 [in_i] 72 [in_i] [facility] ([facility]) Body mass index (BMI) [Ratio] 30.2 kg/m2 30.2 k g/m2 [facility] ([facility]) Systolic blood pressure 120 mm[Hg] 120 mm[Hg] [facility] ([facility]) Body weight 3568 [oz_av] 3568 [oz_av] [facility] ([facility]) Diastolic blood pressure 81 mm[Hg] 81 mm[Hg] [facility] ([facility]) Body height 72 [in_i] 72 [in_i] [facility] ([facility]) Body mass index (BMI) [Ratio] 30.2 kg/m2 30.2 k g/m2 [facility] ([facility]) Systolic blood pressure 120 mm[Hg] 120 mm[Hg] [facility]) Body weight 3568 [oz_av] 3568 [oz_av] [facility] ([facility]) Body mass index (BMI) [Ratio] 30.2 kg/m2 30.2 k g/m2 [facility] ([facility]) Systolic blood pressure 120 mm[Hg] 120 mm[Hg] [facility]) Body weight 3568 [oz_av] 3568 [oz_av] [facility] ([facility]) Diastolic blood pressure 81 mm[Hg] 81 mm[Hg] [facility] ([facility]) Body height 72 [in_i] 72 [in_i] [facility] ([facility]) Diastolic blood pressure 81 mm[Hg] 81 mm[Hg] [facility] ([facility]) Body height 72 [in_i] 72 [in_i] [facility] ([facility]) Body mass index (BMI) [Ratio] 30.2 kg/m2 30.2 k g/m2 [facility] ([facility]) Systolic blood pressure 120 mm[Hg] 120 mm[Hg] A [facility] ([facility]) Body weight 3568 [oz_av] 3568 [oz_av] [facility] ([facility]) Diastolic blood pressure 81 mm[Hg] 81 mm[Hg] [facility] ([facility]) Body height 72 [in_i] 72 [in_i] [facility] ([facility]) Body mass index (BMI) [Ratio] 30.2 kg/m2 30.2 k g/m2 [facility] ([facility]) Systolic blood pressure 120 mm[Hg] 120 mm[Hg] [facility]) Body weight 3568 [oz_av] 3568 [oz_av] [facility] ([facility]) Diastolic blood pressure 81 mm[Hg] 81 mm[Hg] [facility] ([facility]) Body height 72 [in_i] 72 [in_i] [facility] ([facility]) Body mass index (BMI) [Ratio] 30.2 kg/m2 30.2 k g/m2 [facility] ([facility]) Systolic blood pressure 120 mm[Hg] 120 mm[Hg] A [facility] ([facility]) Body weight 3568 [oz_av] 3568 [oz_av] [facility] ([facility]) Diastolic blood pressure 81 mm[Hg] 81 mm[Hg] [facility] ([facility]) Body height 72 [in_i] 72 [in_i] [facility] ([facility]) Body mass index (BMI) [Ratio] 30.2 kg/m2 30.2 k g/m2 [facility] ([facility]) Systolic blood pressure 120 mm[Hg] 120 mm[Hg] [facility]) Body weight 3568 [oz_av] 3568 [oz_av] [facility] ([facility]) Diastolic blood pressure 81 mm[Hg] 81 mm[Hg] [facility] ([facility]) Body height 72 [in_i] 72 [in_i] [facility] ([facility]) Body mass index (BMI) [Ratio] 30.2 kg/m2 30.2 k g/m2 [facility] ([facility]) Systolic blood pressure 120 mm[Hg] 120 mm[Hg] A [facility] ([facility]) Body weight 3568 [oz_av] 3568 [oz_av] [facility] ([facility]) Diastolic blood pressure 81 mm[Hg] 81 mm[Hg] [facility] ([facility]) Body height 72 [in_i] 72 [in_i] [facility] ([facility]) Body mass index (BMI) [Ratio] 30.2 kg/m2 30.2 k g/m2 [facility] ([facility]) Systolic blood pressure 120 mm[Hg] 120 mm[Hg] A [facility] ([facility]) Body weight 3568 [oz_av] 3568 [oz_av] [facility] ([facility]) Diastolic blood pressure 86 mm[Hg] 86 mm[Hg] [facility] ([facility]) Body height 72 [in_i] 72 [in_i] [facility] ([facility]) Body mass index (BMI) [Ratio] 30.4 kg/m2 30.4 k g/m2 [facility] ([facility]) Systolic blood pressure 130 mm[Hg] 130 mm[Hg] A [facility] ([facility]) Body weight 3587.2 [oz_av] 3587.2 [oz_av] ATHEN A ([facility]) Diastolic blood pressure 86 mm[Hg] 86 mm[Hg] [facility] ([facility]) Body height 72 [in_i] 72 [in_i] [facility] ([facility]) Body mass index (BMI) [Ratio] 30.4 kg/m2 30.4 k g/m2 [facility] ([facility]) Systolic blood pressure 130 mm[Hg] 130 mm[Hg] [facility]) Body weight 3587.2 [oz_av] 3587.2 [oz_av] ATHEN A ([facility]) Diastolic blood pressure 86 mm[Hg] 86 mm[Hg] [facility] ([facility]) Body height 72 [in_i] 72 [in_i] [facility] ([facility]) Body mass index (BMI) [Ratio] 30.4 kg/m2 30.4 k g/m2 [facility] ([facility]) Systolic blood pressure 130 mm[Hg] 130 mm[Hg] A [facility] ([facility]) Body weight 3587.2 [oz_av] 3587.2 [oz_av] ATHEN A ([facility]) Diastolic blood pressure 86 mm[Hg] 86 mm[Hg] [facility] ([facility]) Body height 72 [in_i] 72 [in_i] [facility] ([facility]) Body mass index (BMI) [Ratio] 30.4 kg/m2 30.4 k g/m2 [facility] ([facility]) Systolic blood pressure 130 mm[Hg] 130 mm[Hg] A [facility] ([facility]) Body weight 3587.2 [oz_av] 3587.2 [oz_av] ATHEN A ([facility]) Diastolic blood pressure 86 mm[Hg] 86 mm[Hg] [facility] ([facility]) Body height 72 [in_i] 72 [in_i] [facility] ([facility]) Body mass index (BMI) [Ratio] 30.4 kg/m2 30.4 k g/m2 [facility] ([facility]) Systolic blood pressure 130 mm[Hg] 130 mm[Hg] A [facility] ([facility]) Body weight 3587.2 [oz_av] 3587.2 [oz_av] ATHEN A ([facility]) Diastolic blood pressure 86 mm[Hg] 86 mm[Hg] [facility] ([facility]) Body height 72 [in_i] 72 [in_i] [facility] ([facility]) Body mass index (BMI) [Ratio] 30.4 kg/m2 30.4 k g/m2 [facility] ([facility]) Systolic blood pressure 130 mm[Hg] 130 mm[Hg] A [facility] ([facility]) Body weight 3587.2 [oz_av] 3587.2 [oz_av] ATHEN A ([facility]) Diastolic blood pressure 86 mm[Hg] 86 mm[Hg] [facility] ([facility]) Body height 72 [in_i] 72 [in_i] [facility] ([facility]) Body mass index (BMI) [Ratio] 30.4 kg/m2 30.4 k g/m2 [facility] ([facility]) Systolic blood pressure 130 mm[Hg] 130 mm[Hg] [facility] Body weight 3587.2 [oz_av] 3587.2 [oz_av] ATHEN A ([facility]) Diastolic blood pressure 86 mm[Hg] 86 mm[Hg] [facility] ([facility]) Body height 72 [in_i] 72 [in_i] [facility] ([facility]) Body mass index (BMI) [Ratio] 30.4 kg/m2 30.4 k g/m2 [facility] ([facility]) Systolic blood pressure 130 mm[Hg] 130 mm[Hg] A [facility] ([facility]) Body weight 3587.2 [oz_av] 3587.2 [oz_av] ATHEN A ([facility]) Diastolic blood pressure 86 mm[Hg] 86 mm[Hg] [facility] ([facility]) Body height 72 [in_i] 72 [in_i] [facility] ([facility]) Body mass index (BMI) [Ratio] 30.4 kg/m2 30.4 k g/m2 [facility] ([facility]) Systolic blood pressure 130 mm[Hg] 130 mm[Hg] A [facility] ([facility]) Body weight 3587.2 [oz_av] 3587.2 [oz_av] ATHEN A ([facility]) Diastolic blood pressure 86 mm[Hg] 86 mm[Hg] [facility] ([facility]) Body height 72 [in_i] 72 [in_i] [facility] ([facility]) Body mass index (BMI) [Ratio] 30.4 kg/m2 30.4 k g/m2 [facility] ([facility]) Systolic blood pressure 130 mm[Hg] 130 mm[Hg] A [facility] ([facility]) Body weight 3587.2 [oz_av] 3587.2 [oz_av] ATHEN A ([facility]) Diastolic blood pressure 86 mm[Hg] 86 mm[Hg] [facility] ([facility]) Body height 72 [in_i] 72 [in_i] [facility] ([facility]) Body mass index (BMI) [Ratio] 30.4 kg/m2 30.4 k g/m2 [facility] ([facility]) Systolic blood pressure 130 mm[Hg] 130 mm[Hg] A [facility] ([facility]) Body weight 3587.2 [oz_av] 3587.2 [oz_av] ATHEN A ([facility]) Diastolic blood pressure 86 mm[Hg] 86 mm[Hg] [facility] ([facility]) Body height 72 [in_i] 72 [in_i] [facility] ([facility]) Body mass index (BMI) [Ratio] 30.4 kg/m2 30.4 k g/m2 [facility] ([facility]) Systolic blood pressure 130 mm[Hg] 130 mm[Hg] A [facility] ([facility]) Body weight 3587.2 [oz_av] 3587.2 [oz_av] ATHEN A ([facility]) Diastolic blood pressure 86 mm[Hg] 86 mm[Hg] [facility] ([facility]) Body height 72 [in_i] 72 [in_i] [facility] ([facility]) Body mass index (BMI) [Ratio] 30.4 kg/m2 30.4 k g/m2 [facility] ([facility]) Systolic blood pressure 130 mm[Hg] 130 mm[Hg] A [facility] ([facility]) Body weight 3587.2 [oz_av] 3587.2 [oz_av] ATHEN A ([facility]) Diastolic blood pressure 86 mm[Hg] 86 mm[Hg] [facility] ([facility]) Body height 72 [in_i] 72 [in_i] [facility] ([facility]) Body mass index (BMI) [Ratio] 30.4 kg/m2 30.4 k g/m2 [facility] ([facility]) Systolic blood pressure 130 mm[Hg] 130 mm[Hg] A [facility] ([facility]) Body weight 3587.2 [oz_av] 3587.2 [oz_av] ATHEN A ([facility]) Diastolic blood pressure 86 mm[Hg] 86 mm[Hg] [facility] ([facility]) Body height 72 [in_i] 72 [in_i] [facility] ([facility]) Body mass index (BMI) [Ratio] 30.4 kg/m2 30.4 k g/m2 [facility] ([facility]) Systolic blood pressure 130 mm[Hg] 130 mm[Hg] A [facility] ([facility]) Body weight 3587.2 [oz_av] 3587.2 [oz_av] ATHEN A ([facility]) Diastolic blood pressure 86 mm[Hg] 86 mm[Hg] [facility] ([facility]) Body height 72 [in_i] 72 [in_i] [facility] ([facility]) Body mass index (BMI) [Ratio] 30.4 kg/m2 30.4 k g/m2 [facility] ([facility]) Systolic blood pressure 130 mm[Hg] 130 mm[Hg] A [facility] ([facility]) Body weight 3587.2 [oz_av] 3587.2 [oz_av] ATHEN A ([facility]) Diastolic blood pressure 86 mm[Hg] 86 mm[Hg] [facility] ([facility]) Body height 72 [in_i] 72 [in_i] [facility] ([facility]) Body mass index (BMI) [Ratio] 30.4 kg/m2 30.4 k g/m2 [facility] ([facility]) Systolic blood pressure 130 mm[Hg] 130 mm[Hg] A [facility] ([facility]) Body weight 3587.2 [oz_av] 3587.2 [oz_av] ATHEN A ([facility]) Diastolic blood pressure 86 mm[Hg] 86 mm[Hg] [facility] ([facility]) Body height 72 [in_i] 72 [in_i] [facility] ([facility]) Body mass index (BMI) [Ratio] 30.4 kg/m2 30.4 k g/m2 [facility] ([facility]) Systolic blood pressure 130 mm[Hg] 130 mm[Hg] A [facility] ([facility]) Body weight 3587.2 [oz_av] 3587.2 [oz_av] ATHEN A ([facility]) Diastolic blood pressure 86 mm[Hg] 86 mm[Hg] [facility] ([facility]) Body height 72 [in_i] 72 [in_i] [facility] ([facility]) Body mass index (BMI) [Ratio] 30.4 kg/m2 30.4 k g/m2 [facility] ([facility]) Systolic blood pressure 130 mm[Hg] 130 mm[Hg] [facility] Body weight 3587.2 [oz_av] 3587.2 [oz_av] ATHEN A ([facility]) Diastolic blood pressure 86 mm[Hg] 86 mm[Hg] [facility] ([facility]) Body height 72 [in_i] 72 [in_i] [facility] ([facility]) Body mass index (BMI) [Ratio] 30.4 kg/m2 30.4 k g/m2 [facility] ([facility]) Systolic blood pressure 130 mm[Hg] 130 mm[Hg] A [facility] ([facility]) Body weight 3587.2 [oz_av] 3587.2 [oz_av] ATHEN A ([facility]) Diastolic blood pressure 86 mm[Hg] 86 mm[Hg] [facility] ([facility]) Body height 72 [in_i] 72 [in_i] [facility] ([facility]) Body mass index (BMI) [Ratio] 30.4 kg/m2 30.4 k g/m2 [facility] ([facility]) Systolic blood pressure 130 mm[Hg] 130 mm[Hg] [facility] Body weight 3587.2 [oz_av] 3587.2 [oz_av] ATHEN A ([facility]) Diastolic blood pressure 86 mm[Hg] 86 mm[Hg] [facility] ([facility]) Body height 72 [in_i] 72 [in_i] [facility] ([facility]) Body mass index (BMI) [Ratio] 30.4 kg/m2 30.4 k g/m2 [facility] ([facility]) Systolic blood pressure 130 mm[Hg] 130 mm[Hg] [facility]) Body weight 3587.2 [oz_av] 3587.2 [oz_av] ATHEN A ([facility]) Diastolic blood pressure 86 mm[Hg] 86 mm[Hg] [facility] ([facility]) Body height 72 [in_i] 72 [in_i] [facility] ([facility]) Body mass index (BMI) [Ratio] 30.4 kg/m2 30.4 k g/m2 [facility] ([facility]) Systolic blood pressure 130 mm[Hg] 130 mm[Hg] A [facility] ([facility]) Body weight 3587.2 [oz_av] 3587.2 [oz_av] ATHEN A ([facility]) Diastolic blood pressure 86 mm[Hg] 86 mm[Hg] [facility] ([facility]) Body height 72 [in_i] 72 [in_i] [facility] ([facility]) Body mass index (BMI) [Ratio] 30.4 kg/m2 30.4 k g/m2 [facility] ([facility]) Systolic blood pressure 130 mm[Hg] 130 mm[Hg] A [facility]) Body weight 3587.2 [oz_av] 3587.2 [oz_av] ATHEN A ([facility]) Diastolic blood pressure 86 mm[Hg] 86 mm[Hg] [facility] ([facility]) Body height 72 [in_i] 72 [in_i] [facility] ([facility]) Body mass index (BMI) [Ratio] 30.4 kg/m2 30.4 k g/m2 [facility] ([facility]) Systolic blood pressure 130 mm[Hg] 130 mm[Hg] A [facility] ([facility]) Body weight 3587.2 [oz_av] 3587.2 [oz_av] ATHEN A ([facility]) Diastolic blood pressure 86 mm[Hg] 86 mm[Hg] [facility] ([facility]) Body height 72 [in_i] 72 [in_i] [facility] ([facility]) Body mass index (BMI) [Ratio] 30.4 kg/m2 30.4 k g/m2 [facility] ([facility]) Systolic blood pressure 130 mm[Hg] 130 mm[Hg] A [facility] ([facility]) Body weight 3587.2 [oz_av] 3587.2 [oz_av] ATHEN A ([facility]) Diastolic blood pressure 86 mm[Hg] 86 mm[Hg] [facility] ([facility]) Body height 72 [in_i] 72 [in_i] [facility] ([facility]) Body mass index (BMI) [Ratio] 30.4 kg/m2 30.4 k g/m2 [facility] ([facility]) Systolic blood pressure 130 mm[Hg] 130 mm[Hg] A [facility] ([facility]) Body weight 3587.2 [oz_av] 3587.2 [oz_av] ATHEN A ([facility]) Systolic blood pressure 130 mm[Hg] 130 mm[Hg] A [facility] ([facility]) Body weight 3587.2 [oz_av] 3587.2 [oz_av] ATHEN A ([facility]) Diastolic blood pressure 86 mm[Hg] 86 mm[Hg] [facility] ([facility]) Body height 72 [in_i] 72 [in_i] [facility] ([facility]) Body mass index (BMI) [Ratio] 30.4 kg/m2 30.4 k g/m2 [facility] ([facility]) Diastolic blood pressure 86 mm[Hg] 86 mm[Hg] [facility] ([facility]) Body height 72 [in_i] 72 [in_i] [facility] ([facility]) Body mass index (BMI) [Ratio] 30.4 kg/m2 30.4 k g/m2 [facility] ([facility]) Systolic blood pressure 130 mm[Hg] 130 mm[Hg] A [facility] ([facility]) Body weight 3587.2 [oz_av] 3587.2 [oz_av] ATHEN A ([facility]) Diastolic blood pressure 86 mm[Hg] 86 mm[Hg] [facility] ([facility]) Body height 72 [in_i] 72 [in_i] [facility] ([facility]) Body mass index (BMI) [Ratio] 30.4 kg/m2 30.4 k g/m2 [facility] ([facility]) Systolic blood pressure 130 mm[Hg] 130 mm[Hg] A [facility] ([facility]) Body weight 3587.2 [oz_av] 3587.2 [oz_av] ATHEN A ([facility]) Body height 72 [in_i] 72 [in_i] IHLDA ([facility]) Body mass index (BMI) [Ratio] 30.4 kg/m2 30.4 k g/m2 [facility] ([facility]) Systolic blood pressure 130 mm[Hg] 130 mm[Hg] A [facility] ([facility]) Body weight 3587.2 [oz_av] 3587.2 [oz_av] ATHEN A ([facility]) Diastolic blood pressure 86 mm[Hg] 86 mm[Hg] [facility] ([facility]) Diastolic blood pressure 86 mm[Hg] 86 mm[Hg] [facility] ([facility]) Body height 72 [in_i] 72 [in_i] [facility] ([facility]) Body mass index (BMI) [Ratio] 30.4 kg/m2 30.4 k g/m2 [facility] ([facility]) Systolic blood pressure 130 mm[Hg] 130 mm[Hg] A [facility] ([facility]) Body weight 3587.2 [oz_av] 3587.2 [oz_av] ATHEN A ([facility]) Diastolic blood pressure 86 mm[Hg] 86 mm[Hg] [facility] ([facility]) Body height 72 [in_i] 72 [in_i] [facility] ([facility]) Body mass index (BMI) [Ratio] 30.4 kg/m2 30.4 k g/m2 [facility] ([facility]) Systolic blood pressure 130 mm[Hg] 130 mm[Hg] A [facility] ([facility]) Body weight 3587.2 [oz_av] 3587.2 [oz_av] ATHEN A ([facility]) Diastolic blood pressure 85 mm[Hg] 85 mm[Hg] [facility] ([facility]) Body height 72 [in_i] 72 [in_i] [facility] ([facility]) Body mass index (BMI) [Ratio] 30.2 kg/m2 30.2 k g/m2 [facility] ([facility]) Systolic blood pressure 130 mm[Hg] 130 mm[Hg] A [facility] ([facility]) Body weight 3558 [oz_av] 3558 [oz_av] [facility] ([facility]) Diastolic blood pressure 85 mm[Hg] 85 mm[Hg] [facility] ([facility]) Body height 72 [in_i] 72 [in_i] [facility] ([facility]) Body mass index (BMI) [Ratio] 30.2 kg/m2 30.2 k g/m2 [facility] ([facility]) Systolic blood pressure 130 mm[Hg] 130 mm[Hg] A [facility] ([facility]) Body weight 3558 [oz_av] 3558 [oz_av] [facility] ([facility]) Systolic blood pressure 130 mm[Hg] 130 mm[Hg] A [facility] ([facility]) Diastolic blood pressure 85 mm[Hg] 85 mm[Hg] [facility] ([facility]) Body height 72 [in_i] 72 [in_i] [facility] ([facility]) Body mass index (BMI) [Ratio] 30.2 kg/m2 30.2 k g/m2 [facility] ([facility]) Body weight 3558 [oz_av] 3558 [oz_av] [facility] ([facility]) Body height 72 [in_i] 72 [in_i] [facility] ([facility]) Body mass index (BMI) [Ratio] 30.2 kg/m2 30.2 k g/m2 [facility] ([facility]) Systolic blood pressure 130 mm[Hg] 130 mm[Hg] A [facility] ([facility]) Body weight 3558 [oz_av] 3558 [oz_av] [facility] ([facility]) Diastolic blood pressure 85 mm[Hg] 85 mm[Hg] [facility] ([facility]) Diastolic blood pressure 85 mm[Hg] 85 mm[Hg] [facility] ([facility]) Body height 72 [in_i] 72 [in_i] [facility] ([facility]) Body mass index (BMI) [Ratio] 30.2 kg/m2 30.2 k g/m2 [facility] ([facility]) Systolic blood pressure 130 mm[Hg] 130 mm[Hg] A [facility] ([facility]) Body weight 3558 [oz_av] 3558 [oz_av] [facility] ([facility]) Diastolic blood pressure 85 mm[Hg] 85 mm[Hg] [facility] ([facility]) Body height 72 [in_i] 72 [in_i] [facility] ([facility]) Body mass index (BMI) [Ratio] 30.2 kg/m2 30.2 k g/m2 [facility] ([facility]) Systolic blood pressure 130 mm[Hg] 130 mm[Hg] A [facility] ([facility]) Body weight 3558 [oz_av] 3558 [oz_av] [facility] ([facility]) Diastolic blood pressure 85 mm[Hg] 85 mm[Hg] [facility] ([facility]) Body height 72 [in_i] 72 [in_i] [facility] ([facility]) Body mass index (BMI) [Ratio] 30.2 kg/m2 30.2 k g/m2 [facility] ([facility]) Systolic blood pressure 130 mm[Hg] 130 mm[Hg] A [facility] ([facility]) Body weight 3558 [oz_av] 3558 [oz_av] [facility] ([facility]) Diastolic blood pressure 85 mm[Hg] 85 mm[Hg] [facility] ([facility]) Body height 72 [in_i] 72 [in_i] [facility] ([facility]) Body mass index (BMI) [Ratio] 30.2 kg/m2 30.2 k g/m2 [facility] ([facility]) Systolic blood pressure 130 mm[Hg] 130 mm[Hg] A [facility] ([facility]) Body weight 3558 [oz_av] 3558 [oz_av] [facility] ([facility]) Diastolic blood pressure 85 mm[Hg] 85 mm[Hg] [facility] ([facility]) Body height 72 [in_i] 72 [in_i] [facility] ([facility]) Body mass index (BMI) [Ratio] 30.2 kg/m2 30.2 k g/m2 [facility] ([facility]) Systolic blood pressure 130 mm[Hg] 130 mm[Hg] A [facility] ([facility]) Body weight 3558 [oz_av] 3558 [oz_av] [facility] ([facility]) Diastolic blood pressure 85 mm[Hg] 85 mm[Hg] [facility] ([facility]) Body height 72 [in_i] 72 [in_i] [facility] ([facility]) Body mass index (BMI) [Ratio] 30.2 kg/m2 30.2 k g/m2 [facility] ([facility]) Systolic blood pressure 130 mm[Hg] 130 mm[Hg] A [facility] ([facility]) Body weight 3558 [oz_av] 3558 [oz_av] [facility] ([facility]) Diastolic blood pressure 85 mm[Hg] 85 mm[Hg] [facility] ([facility]) Diastolic blood pressure 85 mm[Hg] 85 mm[Hg] [facility] ([facility]) Body height 72 [in_i] 72 [in_i] [facility] ([facility]) Body mass index (BMI) [Ratio] 30.2 kg/m2 30.2 k g/m2 [facility] ([facility]) Systolic blood pressure 130 mm[Hg] 130 mm[Hg] A [facility] ([facility]) Body weight 3558 [oz_av] 3558 [oz_av] [facility] ([facility]) Body height 72 [in_i] 72 [in_i] [facility] ([facility]) Body mass index (BMI) [Ratio] 30.2 kg/m2 30.2 k g/m2 [facility] ([facility]) Systolic blood pressure 130 mm[Hg] 130 mm[Hg] A [facility] ([facility]) Body weight 3558 [oz_av] 3558 [oz_av] [facility] ([facility]) Diastolic blood pressure 85 mm[Hg] 85 mm[Hg] [facility] ([facility]) Body height 72 [in_i] 72 [in_i] [facility] ([facility]) Body mass index (BMI) [Ratio] 30.2 kg/m2 30.2 k g/m2 [facility] ([facility]) Systolic blood pressure 130 mm[Hg] 130 mm[Hg] A [facility] ([facility]) Body weight 3558 [oz_av] 3558 [oz_av] [facility] ([facility]) Diastolic blood pressure 85 mm[Hg] 85 mm[Hg] [facility] ([facility]) Body height 72 [in_i] 72 [in_i] [facility] ([facility]) Body mass index (BMI) [Ratio] 30.2 kg/m2 30.2 k g/m2 [facility] ([facility]) Systolic blood pressure 130 mm[Hg] 130 mm[Hg] A [facility] ([facility]) Body weight 3558 [oz_av] 3558 [oz_av] [facility] ([facility]) Diastolic blood pressure 85 mm[Hg] 85 mm[Hg] [facility] ([facility]) Body height 72 [in_i] 72 [in_i] [facility] ([facility]) Body mass index (BMI) [Ratio] 30.2 kg/m2 30.2 k g/m2 [facility] ([facility]) Systolic blood pressure 130 mm[Hg] 130 mm[Hg] A [facility] ([facility]) Body weight 3558 [oz_av] 3558 [oz_av] [facility] ([facility]) Diastolic blood pressure 85 mm[Hg] 85 mm[Hg] [facility] ([facility]) Body height 72 [in_i] 72 [in_i] [facility] ([facility]) Body mass index (BMI) [Ratio] 30.2 kg/m2 30.2 k g/m2 [facility] ([facility]) Systolic blood pressure 130 mm[Hg] 130 mm[Hg] A [facility] ([facility]) Body weight 3558 [oz_av] 3558 [oz_av] [facility] ([facility]) Diastolic blood pressure 85 mm[Hg] 85 mm[Hg] [facility] ([facility]) Body height 72 [in_i] 72 [in_i] [facility] ([facility]) Body mass index (BMI) [Ratio] 30.2 kg/m2 30.2 k g/m2 [facility] ([facility]) Systolic blood pressure 130 mm[Hg] 130 mm[Hg] A [facility] ([facility]) Body weight 3558 [oz_av] 3558 [oz_av] [facility] ([facility]) Diastolic blood pressure 85 mm[Hg] 85 mm[Hg] [facility] ([facility]) Body height 72 [in_i] 72 [in_i] [facility] ([facility]) Body mass index (BMI) [Ratio] 30.2 kg/m2 30.2 k g/m2 [facility] ([facility]) Systolic blood pressure 130 mm[Hg] 130 mm[Hg] [facility] ([facility]) Body weight 3558 [oz_av] 3558 [oz_av] [facility] ([facility]) Diastolic blood pressure 85 mm[Hg] 85 mm[Hg] [facility] ([facility]) Body height 72 [in_i] 72 [in_i] [facility] ([facility]) Body mass index (BMI) [Ratio] 30.2 kg/m2 30.2 k g/m2 [facility] ([facility]) Systolic blood pressure 130 mm[Hg] 130 mm[Hg] A [facility] ([facility]) Body weight 3558 [oz_av] 3558 [oz_av] [facility] ([facility]) Diastolic blood pressure 85 mm[Hg] 85 mm[Hg] [facility] ([facility]) Body height 72 [in_i] 72 [in_i] [facility] ([facility]) Body mass index (BMI) [Ratio] 30.2 kg/m2 30.2 k g/m2 [facility] ([facility]) Systolic blood pressure 130 mm[Hg] 130 mm[Hg] [facility] ([facility]) Body weight 3558 [oz_av] 3558 [oz_av] [facility] ([facility]) Diastolic blood pressure 85 mm[Hg] 85 mm[Hg] [facility] ([facility]) Body height 72 [in_i] 72 [in_i] [facility] ([facility]) Systolic blood pressure 130 mm[Hg] 130 mm[Hg] [facility] ([facility]) Body mass index (BMI) [Ratio] 30.2 kg/m2 30.2 k g/m2 [facility] ([facility]) Body weight 3558 [oz_av] 3558 [oz_av] [facility] ([facility]) Diastolic blood pressure 85 mm[Hg] 85 mm[Hg] [facility] ([facility]) Body height 72 [in_i] 72 [in_i] [facility] ([facility]) Body mass index (BMI) [Ratio] 30.2 kg/m2 30.2 k g/m2 [facility] ([facility]) Systolic blood pressure 130 mm[Hg] 130 mm[Hg] [facility] ([facility]) Body weight 3558 [oz_av] 3558 [oz_av] [facility] ([facility]) Body mass index (BMI) [Ratio] 30.2 kg/m2 30.2 k g/m2 [facility] ([facility]) Systolic blood pressure 130 mm[Hg] 130 mm[Hg] [facility] ([facility]) Body weight 3558 [oz_av] 3558 [oz_av] [facility] ([facility]) Diastolic blood pressure 85 mm[Hg] 85 mm[Hg] [facility] ([facility]) Body height 72 [in_i] 72 [in_i] [facility] ([facility]) Diastolic blood pressure 85 mm[Hg] 85 mm[Hg] [facility] ([facility]) Body height 72 [in_i] 72 [in_i] [facility] ([facility]) Body mass index (BMI) [Ratio] 30.2 kg/m2 30.2 k g/m2 [facility] ([facility]) Systolic blood pressure 130 mm[Hg] 130 mm[Hg] [facility] ([facility]) Body weight 3558 [oz_av] 3558 [oz_av] [facility] ([facility]) Body weight 3558 [oz_av] 3558 [oz_av] [facility] ([facility]) Diastolic blood pressure 85 mm[Hg] 85 mm[Hg] [facility] ([facility]) Body height 72 [in_i] 72 [in_i] [facility] ([facility]) Body mass index (BMI) [Ratio] 30.2 kg/m2 30.2 k g/m2 [facility] ([facility]) Systolic blood pressure 130 mm[Hg] 130 mm[Hg] [facility] ([facility]) Diastolic blood pressure 85 mm[Hg] 85 mm[Hg] [facility] ([facility]) Body height 72 [in_i] 72 [in_i] [facility] ([facility]) Body mass index (BMI) [Ratio] 30.2 kg/m2 30.2 k g/m2 [facility] ([facility]) Systolic blood pressure 130 mm[Hg] 130 mm[Hg] A [facility] ([facility]) Body weight 3558 [oz_av] 3558 [oz_av] [facility] ([facility]) Diastolic blood pressure 85 mm[Hg] 85 mm[Hg] [facility] ([facility]) Body height 72 [in_i] 72 [in_i] [facility] ([facility]) Body mass index (BMI) [Ratio] 30.2 kg/m2 30.2 k g/m2 [facility] ([facility]) Systolic blood pressure 130 mm[Hg] 130 mm[Hg] A [facility] ([facility]) Body weight 3558 [oz_av] 3558 [oz_av] [facility] ([facility]) Systolic blood pressure 130 mm[Hg] 130 mm[Hg] A [facility] ([facility]) Body weight 3558 [oz_av] 3558 [oz_av] [facility] ([facility]) Diastolic blood pressure 85 mm[Hg] 85 mm[Hg] [facility] ([facility]) Body height 72 [in_i] 72 [in_i] [facility] ([facility]) Body mass index (BMI) [Ratio] 30.2 kg/m2 30.2 k g/m2 [facility] ([facility]) Diastolic blood pressure 85 mm[Hg] 85 mm[Hg] [facility] ([facility]) Body height 72 [in_i] 72 [in_i] [facility] ([facility]) Body mass index (BMI) [Ratio] 30.2 kg/m2 30.2 k g/m2 [facility] ([facility]) Systolic blood pressure 130 mm[Hg] 130 mm[Hg] A [facility] ([facility]) Body weight 3558 [oz_av] 3558 [oz_av] [facility] ([facility]) Diastolic blood pressure 85 mm[Hg] 85 mm[Hg] [facility] ([facility]) Body height 72 [in_i] 72 [in_i] [facility] ([facility]) Body mass index (BMI) [Ratio] 30.2 kg/m2 30.2 k g/m2 [facility] ([facility]) Systolic blood pressure 130 mm[Hg] 130 mm[Hg] [facility] ([facility]) Body weight 3558 [oz_av] 3558 [oz_av] [facility] ([facility]) Systolic blood pressure 130 mm[Hg] 130 mm[Hg] A [facility] ([facility]) Diastolic blood pressure 85 mm[Hg] 85 mm[Hg] [facility] ([facility]) Body height 72 [in_i] 72 [in_i] [facility] ([facility]) Body mass index (BMI) [Ratio] 30.2 kg/m2 30.2 k g/m2 [facility] ([facility]) Body weight 3558 [oz_av] 3558 [oz_av] [facility] ([facility]) Diastolic blood pressure 85 mm[Hg] 85 mm[Hg] [facility] ([facility]) Body height 72 [in_i] 72 [in_i] [facility] ([facility]) Body mass index (BMI) [Ratio] 30.2 kg/m2 30.2 k g/m2 [facility] ([facility]) Systolic blood pressure 130 mm[Hg] 130 mm[Hg] A [facility] ([facility]) Body weight 3558 [oz_av] 3558 [oz_av] [facility] ([facility]) Diastolic blood pressure 85 mm[Hg] 85 mm[Hg] [facility] ([facility]) Body height 72 [in_i] 72 [in_i] [facility] ([facility]) Body mass index (BMI) [Ratio] 30.2 kg/m2 30.2 k g/m2 [facility] ([facility]) Systolic blood pressure 130 mm[Hg] 130 mm[Hg] [facility] ([facility]) Body weight 3558 [oz_av] 3558 [oz_av] [facility] ([facility]) Diastolic blood pressure 85 mm[Hg] 85 mm[Hg] [facility] ([facility]) Body height 72 [in_i] 72 [in_i] [facility] ([facility]) Body mass index (BMI) [Ratio] 30.2 kg/m2 30.2 k g/m2 [facility] ([facility]) Systolic blood pressure 130 mm[Hg] 130 mm[Hg] [facility] ([facility]) Body weight 3558 [oz_av] 3558 [oz_av] [facility] ([facility]) Diastolic blood pressure 85 mm[Hg] 85 mm[Hg] [facility] ([facility]) Body height 72 [in_i] 72 [in_i] [facility] ([facility]) Body mass index (BMI) [Ratio] 30.2 kg/m2 30.2 k g/m2 [facility] ([facility]) Systolic blood pressure 130 mm[Hg] 130 mm[Hg] A [facility] ([facility]) Body weight 3558 [oz_av] 3558 [oz_av] [facility] ([facility]) Diastolic blood pressure 85 mm[Hg] 85 mm[Hg] [facility] ([facility]) Body height 72 [in_i] 72 [in_i] [facility] ([facility]) Body mass index (BMI) [Ratio] 30.2 kg/m2 30.2 k g/m2 [facility] ([facility]) Systolic blood pressure 130 mm[Hg] 130 mm[Hg] [facility] ([facility]) Body weight 3558 [oz_av] 3558 [oz_av] [facility] ([facility]) Diastolic blood pressure 85 mm[Hg] 85 mm[Hg] [facility] ([facility]) Body height 72 [in_i] 72 [in_i] [facility] ([facility]) Body mass index (BMI) [Ratio] 30.2 kg/m2 30.2 k g/m2 [facility] ([facility]) Systolic blood pressure 130 mm[Hg] 130 mm[Hg] [facility] ([facility]) Body weight 3558 [oz_av] 3558 [oz_av] [facility] ([facility]) Body mass index (BMI) [Ratio] 30.2 kg/m2 30.2 k g/m2 [facility] ([facility]) Systolic blood pressure 130 mm[Hg] 130 mm[Hg] [facility] ([facility]) Body weight 3558 [oz_av] 3558 [oz_av] [facility] ([facility]) Diastolic blood pressure 85 mm[Hg] 85 mm[Hg] [facility] ([facility]) Body height 72 [in_i] 72 [in_i] [facility] ([facility]) Diastolic blood pressure 70 mm[Hg] 70 mm[Hg] [facility] ([facility]) Body height 72 [in_i] 72 [in_i] [facility] ([facility]) Body mass index (BMI) [Ratio] 30.24 kg/m2 30.24 kg/m2 [facility] ([facility]) Systolic blood pressure 134 mm[Hg] 134 mm[Hg] [facility]) Body weight 3555.2 [oz_av] 3555.2 [oz_av] ATHEN A ([facility]) Diastolic blood pressure 70 mm[Hg] 70 mm[Hg] [facility] ([facility]) Body height 72 [in_i] 72 [in_i] [facility] ([facility]) Body mass index (BMI) [Ratio] 30.24 kg/m2 30.24 kg/m2 [facility] ([facility]) Systolic blood pressure 134 mm[Hg] 134 mm[Hg] [facility] ([facility]) Body weight 3555.2 [oz_av] 3555.2 [oz_av] A[facility]EN A ([facility]) Diastolic blood pressure 70 mm[Hg] 70 mm[Hg] [facility] ([facility]) Body height 72 [in_i] 72 [in_i] [facility] ([facility]) Body mass index (BMI) [Ratio] 30.24 kg/m2 30.24 kg/m2 [facility] ([facility]) Systolic blood pressure 134 mm[Hg] 134 mm[Hg] [facility] ([facility]) Body weight 3555.2 [oz_av] 3555.2 [oz_av] A[facility]EN A ([facility]) Diastolic blood pressure 70 mm[Hg] 70 mm[Hg] [facility] ([facility]) Body height 72 [in_i] 72 [in_i] [facility] ([facility]) Body mass index (BMI) [Ratio] 30.24 kg/m2 30.24 kg/m2 [facility] ([facility]) Systolic blood pressure 134 mm[Hg] 134 mm[Hg] A [facility] ([facility]) Body weight 3555.2 [oz_av] 3555.2 [oz_av] [facility]EN A ([facility]) Diastolic blood pressure 70 mm[Hg] 70 mm[Hg] [facility] ([facility]) Body height 72 [in_i] 72 [in_i] [facility] ([facility]) Body mass index (BMI) [Ratio] 30.24 kg/m2 30.24 kg/m2 [facility] ([facility]) Systolic blood pressure 134 mm[Hg] 134 mm[Hg] A THENA ([facility]) Body weight 3555.2 [oz_av] 3555.2 [oz_av] ATHEN A ([facility]) Diastolic blood pressure 70 mm[Hg] 70 mm[Hg] HILDA ([facility]) Body height 72 [in_i] 72 [in_i] HILDA ([facility]) Body mass index (BMI) [Ratio] 30.24 kg/m2 30.24 kg/m2 HILDA ([facility]) Systolic blood pressure 134 mm[Hg] 134 mm[Hg] A THENA ([facility]) Body weight 3555.2 [oz_av] 3555.2 [oz_av] ATHEN A ([facility]) Diastolic blood pressure 70 mm[Hg] 70 mm[Hg] HILDA ([facility]) Body height 72 [in_i] 72 [in_i] HILDA ([facility]) Body mass index (BMI) [Ratio] 30.24 kg/m2 30.24 kg/m2 HILDA ([facility]) Systolic blood pressure 134 mm[Hg] 134 mm[Hg] A THENA ([facility]) Body weight 3555.2 [oz_av] 3555.2 [oz_av] ATHEN A ([facility]) Diastolic blood pressure 70 mm[Hg] 70 mm[Hg] HILDA ([facility]) Body height 72 [in_i] 72 [in_i] HILDA ([facility]) Body mass index (BMI) [Ratio] 30.24 kg/m2 30.24 kg/m2 HILDA ([facility]) Systolic blood pressure 134 mm[Hg] 134 mm[Hg] A THENA ([facility]) Body weight 3555.2 [oz_av] 3555.2 [oz_av] ATHEN A ([facility]) Diastolic blood pressure 70 mm[Hg] 70 mm[Hg] HILDA ([facility]) Body height 72 [in_i] 72 [in_i] HILDA ([facility]) Body mass index (BMI) [Ratio] 30.24 kg/m2 30.24 kg/m2 HILDA ([facility]) Systolic blood pressure 134 mm[Hg] 134 mm[Hg] A THENA ([facility]) Body weight 3555.2 [oz_av] 3555.2 [oz_av] ATHEN A ([facility]) Diastolic blood pressure 70 mm[Hg] 70 mm[Hg] HILDA ([facility]) Body height 72 [in_i] 72 [in_i] HILDA ([facility]) Body mass index (BMI) [Ratio] 30.24 kg/m2 30.24 kg/m2 HILDA ([facility]) Systolic blood pressure 134 mm[Hg] 134 mm[Hg] A THENA ([facility]) Body weight 3555.2 [oz_av] 3555.2 [oz_av] ATHEN A ([facility]) Diastolic blood pressure 70 mm[Hg] 70 mm[Hg] HILDA ([facility]) Body height 72 [in_i] 72 [in_i] HILDA ([facility]) Body mass index (BMI) [Ratio] 30.24 kg/m2 30.24 kg/m2 HILDA ([facility]) Systolic blood pressure 134 mm[Hg] 134 mm[Hg] A THENA ([facility]) Body weight 3555.2 [oz_av] 3555.2 [oz_av] ATHEN A ([facility]) Diastolic blood pressure 70 mm[Hg] 70 mm[Hg] HILDA ([facility]) Body height 72 [in_i] 72 [in_i] HILDA ([facility]) Body mass index (BMI) [Ratio] 30.24 kg/m2 30.24 kg/m2 HILDA ([facility]) Systolic blood pressure 134 mm[Hg] 134 mm[Hg] A THENA ([facility]) Body weight 3555.2 [oz_av] 3555.2 [oz_av] ATHEN A ([facility]) Diastolic blood pressure 70 mm[Hg] 70 mm[Hg] HILDA ([facility]) Body height 72 [in_i] 72 [in_i] HILDA ([facility]) Body mass index (BMI) [Ratio] 30.24 kg/m2 30.24 kg/m2 HILDA ([facility]) Systolic blood pressure 134 mm[Hg] 134 mm[Hg] A THENA ([facility]) Body weight 3555.2 [oz_av] 3555.2 [oz_av] ATHEN A ([facility]) Diastolic blood pressure 70 mm[Hg] 70 mm[Hg] HILDA ([facility]) Body height 72 [in_i] 72 [in_i] HILDA ([facility]) Body mass index (BMI) [Ratio] 30.24 kg/m2 30.24 kg/m2 HILDA ([facility]) Systolic blood pressure 134 mm[Hg] 134 mm[Hg] A MOIZ ([facility]) Body weight 3555.2 [oz_av] 3555.2 [oz_av] ATHEN A ([facility]) Diastolic blood pressure 70 mm[Hg] 70 mm[Hg] HILDA ([facility]) Body height 72 [in_i] 72 [in_i] HILDA ([facility]) Body mass index (BMI) [Ratio] 30.24 kg/m2 30.24 kg/m2 HILDA ([facility]) Systolic blood pressure 134 mm[Hg] 134 mm[Hg] A MOIZ ([facility]) Body weight 3555.2 [oz_av] 3555.2 [oz_av] ATHEN A ([facility]) Diastolic blood pressure 70 mm[Hg] 70 mm[Hg] HILDA ([facility]) Body height 72 [in_i] 72 [in_i] HILDA ([facility]) Body mass index (BMI) [Ratio] 30.24 kg/m2 30.24 kg/m2 HILDA ([facility]) Systolic blood pressure 134 mm[Hg] 134 mm[Hg] A MOIZ ([facility]) Body weight 3555.2 [oz_av] 3555.2 [oz_av] ATHEN A ([facility]) Diastolic blood pressure 70 mm[Hg] 70 mm[Hg] HILDA ([facility]) Body height 72 [in_i] 72 [in_i] HILDA ([facility]) Body mass index (BMI) [Ratio] 30.24 kg/m2 30.24 kg/m2 HILDA ([facility]) Systolic blood pressure 134 mm[Hg] 134 mm[Hg] A MOIZ ([facility]) Body weight 3555.2 [oz_av] 3555.2 [oz_av] ATHEN A ([facility]) Diastolic blood pressure 70 mm[Hg] 70 mm[Hg] HILDA ([facility]) Body height 72 [in_i] 72 [in_i] HILDA ([facility]) Body mass index (BMI) [Ratio] 30.24 kg/m2 30.24 kg/m2 HILDA ([facility]) Systolic blood pressure 134 mm[Hg] 134 mm[Hg] [facility] Body weight 3555.2 [oz_av] 3555.2 [oz_av] ATHEN A ([facility]) Diastolic blood pressure 70 mm[Hg] 70 mm[Hg] HILDA ([facility]) Body height 72 [in_i] 72 [in_i] HILDA ([facility]) Body mass index (BMI) [Ratio] 30.24 kg/m2 30.24 kg/m2 HILDA ([facility]) Systolic blood pressure 134 mm[Hg] 134 mm[Hg] A [facility] ([facility]) Body weight 3555.2 [oz_av] 3555.2 [oz_av] ATHEN A ([facility]) Diastolic blood pressure 70 mm[Hg] 70 mm[Hg] HILDA ([facility]) Body height 72 [in_i] 72 [in_i] HILDA ([facility]) Body mass index (BMI) [Ratio] 30.24 kg/m2 30.24 kg/m2 HILDA ([facility]) Systolic blood pressure 134 mm[Hg] 134 mm[Hg] A MOIZ ([facility]) Body weight 3555.2 [oz_av] 3555.2 [oz_av] ATHEN A ([facility]) Diastolic blood pressure 70 mm[Hg] 70 mm[Hg] HILDA ([facility]) Body height 72 [in_i] 72 [in_i] HILDA ([facility]) Body mass index (BMI) [Ratio] 30.24 kg/m2 30.24 kg/m2 HILDA ([facility]) Systolic blood pressure 134 mm[Hg] 134 mm[Hg] A [facility]) Body weight 3555.2 [oz_av] 3555.2 [oz_av] ATHEN A ([facility]) Diastolic blood pressure 70 mm[Hg] 70 mm[Hg] HILDA ([facility]) Body height 72 [in_i] 72 [in_i] HILDA ([facility]) Body mass index (BMI) [Ratio] 30.24 kg/m2 30.24 kg/m2 HILDA ([facility]) Systolic blood pressure 134 mm[Hg] 134 mm[Hg] A [facility]) Body weight 3555.2 [oz_av] 3555.2 [oz_av] ATHEN A ([facility]) Diastolic blood pressure 70 mm[Hg] 70 mm[Hg] HILDA ([facility]) Body height 72 [in_i] 72 [in_i] HILDA ([facility]) Body mass index (BMI) [Ratio] 30.24 kg/m2 30.24 kg/m2 HILDA ([facility]) Systolic blood pressure 134 mm[Hg] 134 mm[Hg] A [facility] ([facility]) Body weight 3555.2 [oz_av] 3555.2 [oz_av] ATHEN A ([facility]) Diastolic blood pressure 91 mm[Hg] 91 mm[Hg] HILDA ([facility]) Diastolic blood pressure 91 mm[Hg] 91 mm[Hg] HILDA ([facility]) Body height 72 [in_i] 72 [in_i] HILDA ([facility]) Systolic blood pressure 135 mm[Hg] 135 mm[Hg] A [facility] ([facility]) Systolic blood pressure 148 mm[Hg] 148 mm[Hg] A [facility] ([facility]) Body weight 3539.2 [oz_av] 3539.2 [oz_av] ATHEN A ([facility]) Diastolic blood pressure 91 mm[Hg] 91 mm[Hg] HILDA ([facility]) Diastolic blood pressure 91 mm[Hg] 91 mm[Hg] HILDA ([facility]) Body height 72 [in_i] 72 [in_i] HILDA ([facility]) Systolic blood pressure 135 mm[Hg] 135 mm[Hg] A [facility] ([facility]) Systolic blood pressure 148 mm[Hg] 148 mm[Hg] A [facility] ([facility]) Body weight 3539.2 [oz_av] 3539.2 [oz_av] ATHEN A ([facility]) Diastolic blood pressure 79 mm[Hg] 79 mm[Hg] HILDA ([facility]) Diastolic blood pressure 91 mm[Hg] 91 mm[Hg] HILDA ([facility]) Diastolic blood pressure 91 mm[Hg] 91 mm[Hg] HILDA ([facility]) Body height 72 [in_i] 72 [in_i] HILDA ([facility]) Body mass index (BMI) [Ratio] 30.11 kg/m2 30.11 kg/m2 HILDA ([facility]) Systolic blood pressure 135 mm[Hg] 135 mm[Hg] A THENA ([facility]) Systolic blood pressure 135 mm[Hg] 135 mm[Hg] A [facility] ([facility]) Systolic blood pressure 148 mm[Hg] 148 mm[Hg] A [facility] ([facility]) Body weight 3539.2 [oz_av] 3539.2 [oz_av] ATHEN A ([facility]) Diastolic blood pressure 91 mm[Hg] 91 mm[Hg] HILDA ([facility]) Diastolic blood pressure 91 mm[Hg] 91 mm[Hg] HILDA ([facility]) Body height 72 [in_i] 72 [in_i] HILDA ([facility]) Systolic blood pressure 135 mm[Hg] 135 mm[Hg] A THENA ([facility]) Systolic blood pressure 148 mm[Hg] 148 mm[Hg] A THENA ([facility]) Body weight 3539.2 [oz_av] 3539.2 [oz_av] ATHEN A ([facility]) Diastolic blood pressure 79 mm[Hg] 79 mm[Hg] HILDA ([facility]) Diastolic blood pressure 91 mm[Hg] 91 mm[Hg] HILDA ([facility]) Diastolic blood pressure 91 mm[Hg] 91 mm[Hg] HILDA ([facility]) Body height 72 [in_i] 72 [in_i] HILDA ([facility]) Body mass index (BMI) [Ratio] 30.11 kg/m2 30.11 kg/m2 HILDA ([facility]) Systolic blood pressure 135 mm[Hg] 135 mm[Hg] A THENA ([facility]) Systolic blood pressure 135 mm[Hg] 135 mm[Hg] A THENA ([facility]) Systolic blood pressure 148 mm[Hg] 148 mm[Hg] A THENA ([facility]) Body weight 3539.2 [oz_av] 3539.2 [oz_av] ATHEN A ([facility]) Diastolic blood pressure 91 mm[Hg] 91 mm[Hg] HILDA ([facility]) Diastolic blood pressure 91 mm[Hg] 91 mm[Hg] HILDA ([facility]) Body height 72 [in_i] 72 [in_i] HILDA ([facility]) Systolic blood pressure 135 mm[Hg] 135 mm[Hg] A THENA ([facility]) Systolic blood pressure 148 mm[Hg] 148 mm[Hg] A THENA ([facility]) Body weight 3539.2 [oz_av] 3539.2 [oz_av] ATHEN A ([facility]) Diastolic blood pressure 91 mm[Hg] 91 mm[Hg] HILDA ([facility]) Diastolic blood pressure 91 mm[Hg] 91 mm[Hg] HILDA ([facility]) Body height 72 [in_i] 72 [in_i] HILDA ([facility]) Systolic blood pressure 135 mm[Hg] 135 mm[Hg] A THENA ([facility]) Systolic blood pressure 148 mm[Hg] 148 mm[Hg] A THENA ([facility]) Body weight 3539.2 [oz_av] 3539.2 [oz_av] ATHEN A ([facility]) Diastolic blood pressure 91 mm[Hg] 91 mm[Hg] HILDA ([facility]) Diastolic blood pressure 91 mm[Hg] 91 mm[Hg] HILDA ([facility]) Body height 72 [in_i] 72 [in_i] HILDA ([facility]) Systolic blood pressure 135 mm[Hg] 135 mm[Hg] A THENA ([facility]) Systolic blood pressure 148 mm[Hg] 148 mm[Hg] A THENA ([facility]) Body weight 3539.2 [oz_av] 3539.2 [oz_av] ATHEN A ([facility]) Diastolic blood pressure 91 mm[Hg] 91 mm[Hg] HILDA ([facility]) Diastolic blood pressure 91 mm[Hg] 91 mm[Hg] HILDA ([facility]) Body height 72 [in_i] 72 [in_i] HILDA ([facility]) Systolic blood pressure 135 mm[Hg] 135 mm[Hg] A THENA ([facility]) Systolic blood pressure 148 mm[Hg] 148 mm[Hg] A THENA ([facility]) Body weight 3539.2 [oz_av] 3539.2 [oz_av] ATHEN A ([facility]) Diastolic blood pressure 91 mm[Hg] 91 mm[Hg] HILDA ([facility]) Diastolic blood pressure 91 mm[Hg] 91 mm[Hg] HILDA ([facility]) Body height 72 [in_i] 72 [in_i] HILDA ([facility]) Systolic blood pressure 135 mm[Hg] 135 mm[Hg] A THENA ([facility]) Systolic blood pressure 148 mm[Hg] 148 mm[Hg] A THENA ([facility]) Body weight 3539.2 [oz_av] 3539.2 [oz_av] ATHEN A ([facility]) Diastolic blood pressure 91 mm[Hg] 91 mm[Hg] HILDA ([facility]) Diastolic blood pressure 91 mm[Hg] 91 mm[Hg] HILDA ([facility]) Body height 72 [in_i] 72 [in_i] HILDA ([facility]) Systolic blood pressure 135 mm[Hg] 135 mm[Hg] A THENA ([facility]) Systolic blood pressure 148 mm[Hg] 148 mm[Hg] A THENA ([facility]) Body weight 3539.2 [oz_av] 3539.2 [oz_av] ATHEN A ([facility]) Diastolic blood pressure 91 mm[Hg] 91 mm[Hg] HILDA ([facility]) Diastolic blood pressure 91 mm[Hg] 91 mm[Hg] HILDA ([facility]) Body height 72 [in_i] 72 [in_i] HILDA ([facility]) Systolic blood pressure 135 mm[Hg] 135 mm[Hg] A THENA ([facility]) Systolic blood pressure 148 mm[Hg] 148 mm[Hg] A THENA ([facility]) Body weight 3539.2 [oz_av] 3539.2 [oz_av] ATHEN A ([facility]) Diastolic blood pressure 91 mm[Hg] 91 mm[Hg] HILDA ([facility]) Diastolic blood pressure 91 mm[Hg] 91 mm[Hg] HILDA ([facility]) Body height 72 [in_i] 72 [in_i] HILDA ([facility]) Systolic blood pressure 135 mm[Hg] 135 mm[Hg] A THENA ([facility]) Systolic blood pressure 148 mm[Hg] 148 mm[Hg] A THENA ([facility]) Body weight 3539.2 [oz_av] 3539.2 [oz_av] ATHEN A ([facility]) Diastolic blood pressure 91 mm[Hg] 91 mm[Hg] HILDA ([facility]) Diastolic blood pressure 91 mm[Hg] 91 mm[Hg] HILDA ([facility]) Body height 72 [in_i] 72 [in_i] HILDA ([facility]) Systolic blood pressure 135 mm[Hg] 135 mm[Hg] A THENA ([facility]) Systolic blood pressure 148 mm[Hg] 148 mm[Hg] A THENA ([facility]) Body weight 3539.2 [oz_av] 3539.2 [oz_av] ATHEN A ([facility]) Diastolic blood pressure 91 mm[Hg] 91 mm[Hg] HILDA ([facility]) Diastolic blood pressure 91 mm[Hg] 91 mm[Hg] HILDA ([facility]) Body height 72 [in_i] 72 [in_i] HILDA ([facility]) Systolic blood pressure 135 mm[Hg] 135 mm[Hg] A THENA ([facility]) Systolic blood pressure 148 mm[Hg] 148 mm[Hg] A THENA ([facility]) Body weight 3539.2 [oz_av] 3539.2 [oz_av] ATHEN A ([facility]) Diastolic blood pressure 91 mm[Hg] 91 mm[Hg] HILDA ([facility]) Diastolic blood pressure 91 mm[Hg] 91 mm[Hg] HILDA ([facility]) Body height 72 [in_i] 72 [in_i] HILDA ([facility]) Systolic blood pressure 135 mm[Hg] 135 mm[Hg] A THENA ([facility]) Systolic blood pressure 148 mm[Hg] 148 mm[Hg] A THENA ([facility]) Body weight 3539.2 [oz_av] 3539.2 [oz_av] ATHEN A ([facility]) Diastolic blood pressure 91 mm[Hg] 91 mm[Hg] HILDA ([facility]) Diastolic blood pressure 91 mm[Hg] 91 mm[Hg] HILDA ([facility]) Body height 72 [in_i] 72 [in_i] HILDA ([facility]) Systolic blood pressure 135 mm[Hg] 135 mm[Hg] A THENA ([facility]) Systolic blood pressure 148 mm[Hg] 148 mm[Hg] A THENA ([facility]) Body weight 3539.2 [oz_av] 3539.2 [oz_av] ATHEN A ([facility]) Diastolic blood pressure 91 mm[Hg] 91 mm[Hg] HILDA ([facility]) Body height 72 [in_i] 72 [in_i] HIDLA ([facility]) Systolic blood pressure 135 mm[Hg] 135 mm[Hg] A THENA ([facility]) Systolic blood pressure 148 mm[Hg] 148 mm[Hg] A THENA ([facility]) Body weight 3539.2 [oz_av] 3539.2 [oz_av] ATHEN A ([facility]) Diastolic blood pressure 91 mm[Hg] 91 mm[Hg] HILDA ([facility]) Diastolic blood pressure 91 mm[Hg] 91 mm[Hg] HILDA ([facility]) Diastolic blood pressure 91 mm[Hg] 91 mm[Hg] HILDA ([facility]) Body height 72 [in_i] 72 [in_i] HILDA ([facility]) Systolic blood pressure 135 mm[Hg] 135 mm[Hg] A THENA ([facility]) Systolic blood pressure 148 mm[Hg] 148 mm[Hg] A THENA ([facility]) Body weight 3539.2 [oz_av] 3539.2 [oz_av] ATHEN A ([facility]) Diastolic blood pressure 79 mm[Hg] 79 mm[Hg] HILDA ([facility]) Diastolic blood pressure 91 mm[Hg] 91 mm[Hg] HILDA ([facility]) Diastolic blood pressure 91 mm[Hg] 91 mm[Hg] HILDA ([facility]) Body height 72 [in_i] 72 [in_i] HILDA ([facility]) Body mass index (BMI) [Ratio] 30.11 kg/m2 30.11 kg/m2 HILDA ([facility]) Systolic blood pressure 135 mm[Hg] 135 mm[Hg] A THENA ([facility]) Systolic blood pressure 135 mm[Hg] 135 mm[Hg] A THENA ([facility]) Systolic blood pressure 148 mm[Hg] 148 mm[Hg] A THENA ([facility]) Body weight 3539.2 [oz_av] 3539.2 [oz_av] ATHEN A ([facility]) Body height 72 [in_i] 72 [in_i] HILDA ([facility]) Body mass index (BMI) [Ratio] 30.11 kg/m2 30.11 kg/m2 HILDA ([facility]) Systolic blood pressure 135 mm[Hg] 135 mm[Hg] A THENA ([facility]) Systolic blood pressure 135 mm[Hg] 135 mm[Hg] A THENA ([facility]) Systolic blood pressure 148 mm[Hg] 148 mm[Hg] A THENA ([facility]) Body weight 3539.2 [oz_av] 3539.2 [oz_av] ATHEN A ([facility]) Diastolic blood pressure 79 mm[Hg] 79 mm[Hg] HILDA ([facility]) Diastolic blood pressure 91 mm[Hg] 91 mm[Hg] HILDA ([facility]) Diastolic blood pressure 91 mm[Hg] 91 mm[Hg] HILDA ([facility]) Diastolic blood pressure 79 mm[Hg] 79 mm[Hg] HILDA ([facility]) Diastolic blood pressure 91 mm[Hg] 91 mm[Hg] HILDA ([facility]) Diastolic blood pressure 91 mm[Hg] 91 mm[Hg] HILDA ([facility]) Body height 72 [in_i] 72 [in_i] HILDA ([facility]) Body mass index (BMI) [Ratio] 30.11 kg/m2 30.11 kg/m2 HILDA ([facility]) Systolic blood pressure 135 mm[Hg] 135 mm[Hg] A [facility]) Systolic blood pressure 135 mm[Hg] 135 mm[Hg] A [facility] ([facility]) Systolic blood pressure 148 mm[Hg] 148 mm[Hg] A [facility] ([facility]) Body weight 3539.2 [oz_av] 3539.2 [oz_av] ATHEN A ([facility]) Body weight 3539.2 [oz_av] 3539.2 [oz_av] ATHEN A ([facility]) Diastolic blood pressure 79 mm[Hg] 79 mm[Hg] HILDA ([facility]) Diastolic blood pressure 91 mm[Hg] 91 mm[Hg] HILDA ([facility]) Diastolic blood pressure 91 mm[Hg] 91 mm[Hg] HILDA ([facility]) Body height 72 [in_i] 72 [in_i] HILDA ([facility]) Body mass index (BMI) [Ratio] 30.11 kg/m2 30.11 kg/m2 HILDA ([facility]) Systolic blood pressure 135 mm[Hg] 135 mm[Hg] A THENA ([facility]) Systolic blood pressure 135 mm[Hg] 135 mm[Hg] A THENA ([facility]) Systolic blood pressure 148 mm[Hg] 148 mm[Hg] A THENA ([facility]) Diastolic blood pressure 79 mm[Hg] 79 mm[Hg] HILDA ([facility]) Diastolic blood pressure 91 mm[Hg] 91 mm[Hg] HILDA ([facility]) Diastolic blood pressure 91 mm[Hg] 91 mm[Hg] HILDA ([facility]) Body height 72 [in_i] 72 [in_i] HILDA ([facility]) Body mass index (BMI) [Ratio] 30.11 kg/m2 30.11 kg/m2 HILDA ([facility]) Systolic blood pressure 135 mm[Hg] 135 mm[Hg] A THENA ([facility]) Systolic blood pressure 135 mm[Hg] 135 mm[Hg] A THENA ([facility]) Systolic blood pressure 148 mm[Hg] 148 mm[Hg] A [facility]) Body weight 3539.2 [oz_av] 3539.2 [oz_av] ATHEN A ([facility]) Diastolic blood pressure 79 mm[Hg] 79 mm[Hg] HILDA ([facility]) Diastolic blood pressure 91 mm[Hg] 91 mm[Hg] HILDA ([facility]) Diastolic blood pressure 91 mm[Hg] 91 mm[Hg] HILDA ([facility]) Body height 72 [in_i] 72 [in_i] HILDA ([facility]) Body mass index (BMI) [Ratio] 30.11 kg/m2 30.11 kg/m2 HILDA ([facility]) Systolic blood pressure 135 mm[Hg] 135 mm[Hg] A THENA ([facility]) Systolic blood pressure 135 mm[Hg] 135 mm[Hg] A THENA ([facility]) Systolic blood pressure 148 mm[Hg] 148 mm[Hg] A [facility] ([facility]) Body weight 3539.2 [oz_av] 3539.2 [oz_av] ATHEN A ([facility]) Diastolic blood pressure 79 mm[Hg] 79 mm[Hg] HILDA ([facility]) Diastolic blood pressure 91 mm[Hg] 91 mm[Hg] HILDA ([facility]) Diastolic blood pressure 91 mm[Hg] 91 mm[Hg] HILDA ([facility]) Body height 72 [in_i] 72 [in_i] HILDA ([facility]) Body mass index (BMI) [Ratio] 30.11 kg/m2 30.11 kg/m2 [facility] ([facility]) Systolic blood pressure 135 mm[Hg] 135 mm[Hg] A THENA ([facility]) Systolic blood pressure 135 mm[Hg] 135 mm[Hg] A THENA ([facility]) Systolic blood pressure 148 mm[Hg] 148 mm[Hg] A THENA ([facility]) Body weight 3539.2 [oz_av] 3539.2 [oz_av] ATHEN A ([facility]) Diastolic blood pressure 79 mm[Hg] 79 mm[Hg] HILDA ([facility]) Diastolic blood pressure 91 mm[Hg] 91 mm[Hg] HILDA ([facility]) Diastolic blood pressure 91 mm[Hg] 91 mm[Hg] HILDA ([facility]) Body height 72 [in_i] 72 [in_i] HILDA ([facility]) Body mass index (BMI) [Ratio] 30.11 kg/m2 30.11 kg/m2 [facility]DA ([facility]) Systolic blood pressure 135 mm[Hg] 135 mm[Hg] A THENA ([facility]) Systolic blood pressure 135 mm[Hg] 135 mm[Hg] A THENA ([facility]) Systolic blood pressure 148 mm[Hg] 148 mm[Hg] A [facility] ([facility]) Body weight 3539.2 [oz_av] 3539.2 [oz_av] ATHEN A ([facility]) Diastolic blood pressure 79 mm[Hg] 79 mm[Hg] HILDA ([facility]) Diastolic blood pressure 91 mm[Hg] 91 mm[Hg] HILDA ([facility]) Diastolic blood pressure 91 mm[Hg] 91 mm[Hg] HILDA ([facility]) Body height 72 [in_i] 72 [in_i] HILDA ([facility]) Body mass index (BMI) [Ratio] 30.11 kg/m2 30.11 kg/m2 [facility]ILDA ([facility]) Systolic blood pressure 135 mm[Hg] 135 mm[Hg] A THENA ([facility]) Systolic blood pressure 135 mm[Hg] 135 mm[Hg] A THENA ([facility]) Systolic blood pressure 148 mm[Hg] 148 mm[Hg] A THENA ([facility]) Body weight 3539.2 [oz_av] 3539.2 [oz_av] ATHEN A ([facility]) Diastolic blood pressure 79 mm[Hg] 79 mm[Hg] HILDA ([facility]) Diastolic blood pressure 91 mm[Hg] 91 mm[Hg] HILDA ([facility]) Diastolic blood pressure 91 mm[Hg] 91 mm[Hg] HILDA ([facility]) Body height 72 [in_i] 72 [in_i] [facility]ILDA ([facility]) Body mass index (BMI) [Ratio] 30.11 kg/m2 30.11 kg/m2 [facility] ([facility]) Systolic blood pressure 135 mm[Hg] 135 mm[Hg] [facility] Systolic blood pressure 135 mm[Hg] 135 mm[Hg] A [facility]) Systolic blood pressure 148 mm[Hg] 148 mm[Hg] A [facility] ([facility]) Body weight 3539.2 [oz_av] 3539.2 [oz_av] ATHEN A ([facility]) Diastolic blood pressure 79 mm[Hg] 79 mm[Hg] HILDA ([facility]) Diastolic blood pressure 91 mm[Hg] 91 mm[Hg] HILDA ([facility]) Diastolic blood pressure 91 mm[Hg] 91 mm[Hg] [facility]DA ([facility]) Body height 72 [in_i] 72 [in_i] [facility]ILDA ([facility]) Body mass index (BMI) [Ratio] 30.11 kg/m2 30.11 kg/m2 [facility] ([facility]) Systolic blood pressure 135 mm[Hg] 135 mm[Hg] A THENA ([facility]) Systolic blood pressure 135 mm[Hg] 135 mm[Hg] A THENA ([facility]) Systolic blood pressure 148 mm[Hg] 148 mm[Hg] A [facility] ([facility]) Body weight 3539.2 [oz_av] 3539.2 [oz_av] ATHEN A ([facility]) Systolic blood pressure 135 mm[Hg] 135 mm[Hg] A [facility]) Systolic blood pressure 135 mm[Hg] 135 mm[Hg] A THENA ([facility]) Systolic blood pressure 148 mm[Hg] 148 mm[Hg] A THENA ([facility]) Body weight 3539.2 [oz_av] 3539.2 [oz_av] ATHEN A ([facility]) Diastolic blood pressure 79 mm[Hg] 79 mm[Hg] HILDA ([facility]) Diastolic blood pressure 91 mm[Hg] 91 mm[Hg] HILDA ([facility]) Diastolic blood pressure 91 mm[Hg] 91 mm[Hg] HILDA ([facility]) Body height 72 [in_i] 72 [in_i] HILDA ([facility]) Body mass index (BMI) [Ratio] 30.11 kg/m2 30.11 kg/m2 [facility]ILDA ([facility]) Diastolic blood pressure 91 mm[Hg] 91 mm[Hg] HILDA ([facility]) Diastolic blood pressure 79 mm[Hg] 79 mm[Hg] HILDA ([facility]) Diastolic blood pressure 91 mm[Hg] 91 mm[Hg] HILDA ([facility]) Systolic blood pressure 135 mm[Hg] 135 mm[Hg] A THENA ([facility]) Systolic blood pressure 148 mm[Hg] 148 mm[Hg] A [facility]) Body weight 3539.2 [oz_av] 3539.2 [oz_av] ATHEN A ([facility]) Body height 72 [in_i] 72 [in_i] [facility]ILDA ([facility]) Body mass index (BMI) [Ratio] 30.11 kg/m2 30.11 kg/m2 [facility] ([facility]) Systolic blood pressure 135 mm[Hg] 135 mm[Hg] A THENA ([facility]) Diastolic blood pressure 79 mm[Hg] 79 mm[Hg] HILDA ([facility]) Diastolic blood pressure 91 mm[Hg] 91 mm[Hg] HILDA ([facility]) Diastolic blood pressure 91 mm[Hg] 91 mm[Hg] HILDA ([facility]) Body height 72 [in_i] 72 [in_i] HILDA ([facility]) Body mass index (BMI) [Ratio] 30.11 kg/m2 30.11 kg/m2 [facility]DA ([facility]) Systolic blood pressure 135 mm[Hg] 135 mm[Hg] A THENA ([facility]) Systolic blood pressure 135 mm[Hg] 135 mm[Hg] A THENA ([facility]) Systolic blood pressure 148 mm[Hg] 148 mm[Hg] A [facility] ([facility]) Body weight 3539.2 [oz_av] 3539.2 [oz_av] ATHEN A ([facility]) Diastolic blood pressure 79 mm[Hg] 79 mm[Hg] HILDA ([facility]) Diastolic blood pressure 91 mm[Hg] 91 mm[Hg] HILDA ([facility]) Diastolic blood pressure 91 mm[Hg] 91 mm[Hg] HILDA ([facility]) Body height 72 [in_i] 72 [in_i] HILDA ([facility]) Body mass index (BMI) [Ratio] 30.11 kg/m2 30.11 kg/m2 [facility]ILDA ([facility]) Systolic blood pressure 135 mm[Hg] 135 mm[Hg] A THENA ([facility]) Systolic blood pressure 135 mm[Hg] 135 mm[Hg] A THENA ([facility]) Systolic blood pressure 148 mm[Hg] 148 mm[Hg] A [facility] ([facility]) Body weight 3539.2 [oz_av] 3539.2 [oz_av] ATHEN A ([facility]) Diastolic blood pressure 79 mm[Hg] 79 mm[Hg] HILDA ([facility]) Diastolic blood pressure 91 mm[Hg] 91 mm[Hg] HILDA ([facility]) Diastolic blood pressure 91 mm[Hg] 91 mm[Hg] HILDA ([facility]) Body height 72 [in_i] 72 [in_i] HILDA ([facility]) Body mass index (BMI) [Ratio] 30.11 kg/m2 30.11 kg/m2 [facility]ILDA ([facility]) Systolic blood pressure 135 mm[Hg] 135 mm[Hg] A THENA ([facility]) Systolic blood pressure 135 mm[Hg] 135 mm[Hg] A THENA ([facility]) Systolic blood pressure 148 mm[Hg] 148 mm[Hg] A THENA ([facility]) Body weight 3539.2 [oz_av] 3539.2 [oz_av] ATHEN A ([facility]) Diastolic blood pressure 79 mm[Hg] 79 mm[Hg] HILDA ([facility]) Diastolic blood pressure 91 mm[Hg] 91 mm[Hg] HILDA ([facility]) Diastolic blood pressure 91 mm[Hg] 91 mm[Hg] HILDA ([facility]) Body height 72 [in_i] 72 [in_i] HILDA ([facility]) Body mass index (BMI) [Ratio] 30.11 kg/m2 30.11 kg/m2 [facility]ILDA ([facility]) Systolic blood pressure 135 mm[Hg] 135 mm[Hg] A THENA ([facility]) Systolic blood pressure 135 mm[Hg] 135 mm[Hg] A THENA ([facility]) Systolic blood pressure 148 mm[Hg] 148 mm[Hg] A THENA ([facility]) Body weight 3539.2 [oz_av] 3539.2 [oz_av] ATHEN A ([facility]) Body height 72 [in_i] 72 [in_i] HILDA ([facility]) Body mass index (BMI) [Ratio] 30.11 kg/m2 30.11 kg/m2 [facility]DA ([facility]) Systolic blood pressure 135 mm[Hg] 135 mm[Hg] A THENA ([facility]) Systolic blood pressure 135 mm[Hg] 135 mm[Hg] A THENA ([facility]) Systolic blood pressure 148 mm[Hg] 148 mm[Hg] A THENA ([facility]) Body weight 3539.2 [oz_av] 3539.2 [oz_av] ATHEN A ([facility]) Diastolic blood pressure 79 mm[Hg] 79 mm[Hg] HILDA ([facility]) Diastolic blood pressure 91 mm[Hg] 91 mm[Hg] HILDA ([facility]) Diastolic blood pressure 91 mm[Hg] 91 mm[Hg] HILDA ([facility]) Diastolic blood pressure 79 mm[Hg] 79 mm[Hg] HILDA ([facility]) Diastolic blood pressure 91 mm[Hg] 91 mm[Hg] HILDA ([facility]) Diastolic blood pressure 91 mm[Hg] 91 mm[Hg] HILDA ([facility]) Body height 72 [in_i] 72 [in_i] HILDA ([facility]) Body mass index (BMI) [Ratio] 30.11 kg/m2 30.11 kg/m2 HILDA ([facility]) Systolic blood pressure 135 mm[Hg] 135 mm[Hg] A THENA ([facility]) Systolic blood pressure 135 mm[Hg] 135 mm[Hg] A THENA ([facility]) Systolic blood pressure 148 mm[Hg] 148 mm[Hg] A [facility] ([facility]) Body weight 3539.2 [oz_av] 3539.2 [oz_av] ATHEN A ([facility]) Diastolic blood pressure 79 mm[Hg] 79 mm[Hg] HILDA ([facility]) Diastolic blood pressure 91 mm[Hg] 91 mm[Hg] HILDA ([facility]) Diastolic blood pressure 91 mm[Hg] 91 mm[Hg] HILDA ([facility]) Body height 72 [in_i] 72 [in_i] HILDA ([facility]) Body mass index (BMI) [Ratio] 30.11 kg/m2 30.11 kg/m2 [facility]ILDA ([facility]) Systolic blood pressure 135 mm[Hg] 135 mm[Hg] A THENA ([facility]) Systolic blood pressure 135 mm[Hg] 135 mm[Hg] A THENA ([facility]) Systolic blood pressure 148 mm[Hg] 148 mm[Hg] A THENA ([facility]) Body weight 3539.2 [oz_av] 3539.2 [oz_av] ATHEN A ([facility]) Diastolic blood pressure 79 mm[Hg] 79 mm[Hg] IHLDA ([facility]) Diastolic blood pressure 91 mm[Hg] 91 mm[Hg] HILDA ([facility]) Diastolic blood pressure 91 mm[Hg] 91 mm[Hg] HILDA ([facility]) Body height 72 [in_i] 72 [in_i] HILDA ([facility]) Body mass index (BMI) [Ratio] 30.11 kg/m2 30.11 kg/m2 [facility]ILDA ([facility]) Systolic blood pressure 135 mm[Hg] 135 mm[Hg] A THENA ([facility]) Systolic blood pressure 135 mm[Hg] 135 mm[Hg] A THENA ([facility]) Systolic blood pressure 148 mm[Hg] 148 mm[Hg] A THENA ([facility]) Body weight 3539.2 [oz_av] 3539.2 [oz_av] ATHEN A ([facility]) Patient Treatment Plan of Care Planned Activity Planned Date Details Description Data Source (s) Amoxicillin 875 MG / Clavulanate 125 MG Oral Tablet 04/02/19 21 12:00:00 AM EST HILDA ([facility]) Amoxicillin 875 MG / Clavulanate 125 MG Oral Tablet 04/02/19 21 12:00:00 AM EST HILDA ([facility]) Amoxicillin 875 MG / Clavulanate 125 MG Oral Tablet 04/02/19 21 12:00:00 AM EST HILDA ([facility]) Amoxicillin 875 MG / Clavulanate 125 MG Oral Tablet 04/02/19 21 12:00:00 AM EST [facility]ILDA ([facility]) Amoxicillin 875 MG / Clavulanate 125 MG Oral Tablet 04/02/19 21 12:00:00 AM EST HILDA ([facility]) Amoxicillin 875 MG / Clavulanate 125 MG Oral Tablet 04/02/19 21 12:00:00 AM EST [facility]ILDA ([facility]) Amoxicillin 875 MG / Clavulanate 125 MG Oral Tablet 04/02/19 21 12:00:00 AM EST HILDA ([facility]) Amoxicillin 875 MG / Clavulanate 125 MG Oral Tablet 04/02/19 21 12:00:00 AM EST HILDA ([facility]) Amoxicillin 875 MG / Clavulanate 125 MG Oral Tablet 04/02/19 21 12:00:00 AM EST [facility]ILDA ([facility]) Amoxicillin 875 MG / Clavulanate 125 MG Oral Tablet 04/02/19 21 12:00:00 AM EST [facility]ILDA ([facility]) Amoxicillin 875 MG / Clavulanate 125 MG Oral Tablet 04/02/19 21 12:00:00 AM EST HILDA ([facility]) Amoxicillin 875 MG / Clavulanate 125 MG Oral Tablet 04/02/19 21 12:00:00 AM EST [facility]ILDA ([facility]) Amoxicillin 875 MG / Clavulanate 125 MG Oral Tablet 04/02/19 21 12:00:00 AM EST [facility]ILDA ([facility]) Amoxicillin 875 MG / Clavulanate 125 MG Oral Tablet 04/02/19 21 12:00:00 AM EST [facility]ILDA ([facility]) Amoxicillin 875 MG / Clavulanate 125 MG Oral Tablet 04/02/19 21 12:00:00 AM EST [facility] ([facility]) Amoxicillin 875 MG / Clavulanate 125 MG Oral Tablet 04/02/19 21 12:00:00 AM EST [facility]ILDA ([facility]) Amoxicillin 875 MG / Clavulanate 125 MG Oral Tablet 04/02/19 21 12:00:00 AM EST [facility]ILDA ([facility]) Amoxicillin 875 MG / Clavulanate 125 MG Oral Tablet 04/02/19 21 12:00:00 AM EST [facility]ILDA ([facility]) Amoxicillin 875 MG / Clavulanate 125 MG Oral Tablet 04/02/19 21 12:00:00 AM EST [facility]ILDA ([facility]) Amoxicillin 875 MG / Clavulanate 125 MG Oral Tablet 04/02/19 21 12:00:00 AM EST [facility]ILDA ([facility]) Amoxicillin 875 MG / Clavulanate 125 MG Oral Tablet 04/02/19 21 12:00:00 AM EST [facility]ILDA ([facility]) Amoxicillin 875 MG / Clavulanate 125 MG Oral Tablet 04/02/19 21 12:00:00 AM EST [facility] ([facility]) Amoxicillin 875 MG / Clavulanate 125 MG Oral Tablet 04/02/19 21 12:00:00 AM EST [facility] ([facility]) Escitalopram 10 MG Oral Tablet [Lexapro] 10/28/2019 12:00:00 AM EDT [facility]ILDA ([facility]) Escitalopram 10 MG Oral Tablet [Lexapro] 10/28/2019 12:00:00 AM EDT [facility]ILDA ([facility]) Escitalopram 10 MG Oral Tablet [Lexapro] 10/28/2019 12:00:00 AM EDT [facility]ILDA ([facility]) Escitalopram 10 MG Oral Tablet [Lexapro] 10/28/2019 12:00:00 AM EDT [facility]ILDA ([facility]) Escitalopram 10 MG Oral Tablet [Lexapro] 10/28/2019 12:00:00 AM EDT [facility] ([facility]) Escitalopram 10 MG Oral Tablet [Lexapro] 10/28/2019 12:00:00 AM EDT [facility] ([facility]) Escitalopram 10 MG Oral Tablet [Lexapro] 10/28/2019 12:00:00 AM EDT [facility]DA ([facility]) Escitalopram 10 MG Oral Tablet [Lexapro] 10/28/2019 12:00:00 AM EDT [facility] ([facility]) Escitalopram 10 MG Oral Tablet [Lexapro] 10/28/2019 12:00:00 AM EDT [facility] ([facility]) Escitalopram 10 MG Oral Tablet [Lexapro] 10/28/2019 12:00:00 AM EDT [facility] ([facility]) Escitalopram 10 MG Oral Tablet [Lexapro] 10/28/2019 12:00:00 AM EDT [facility] ([facility]) Escitalopram 10 MG Oral Tablet [Lexapro] 10/28/2019 12:00:00 AM EDT [facility] ([facility]) Escitalopram 10 MG Oral Tablet [Lexapro] 10/28/2019 12:00:00 AM EDT [facility] ([facility]) Escitalopram 10 MG Oral Tablet [Lexapro] 10/28/2019 12:00:00 AM EDT [facility] ([facility]) Escitalopram 10 MG Oral Tablet [Lexapro] 10/28/2019 12:00:00 AM EDT [facility] ([facility]) Escitalopram 10 MG Oral Tablet [Lexapro] 10/28/2019 12:00:00 AM EDT [facility] ([facility]) Escitalopram 10 MG Oral Tablet [Lexapro] 10/28/2019 12:00:00 AM EDT [facility] ([facility]) Escitalopram 10 MG Oral Tablet [Lexapro] 10/28/2019 12:00:00 AM EDT [facility]ILDA ([facility]) Escitalopram 10 MG Oral Tablet [Lexapro] 10/28/2019 12:00:00 AM EDT [facility] ([facility]) Escitalopram 10 MG Oral Tablet [Lexapro] 10/28/2019 12:00:00 AM EDT [facility] ([facility]) Escitalopram 10 MG Oral Tablet [Lexapro] 10/28/2019 12:00:00 AM EDT [facility] ([facility]) Escitalopram 10 MG Oral Tablet [Lexapro] 10/28/2019 12:00:00 AM EDT [facility] ([facility]) Escitalopram 10 MG Oral Tablet [Lexapro] 10/28/2019 12:00:00 AM EDT [facility] ([facility]) Escitalopram 10 MG Oral Tablet [Lexapro] 09/10/2019 12:00:00 AM EDT [facility]DA ([facility]) Escitalopram 10 MG Oral Tablet [Lexapro] 09/10/2019 12:00:00 AM EDT [facility] ([facility]) Trazodone Hydrochloride 50 MG Oral Tablet [facility] ([facility]) Sumatriptan 25 MG Oral Tablet [facility] ([facility]) Omeprazole 20 MG Delayed Release Oral Capsule [facility]ILDA ([facility]) Lorazepam 1 MG Oral Tablet A THENA ([facility]) Hydroxyzine Hydrochloride 25 MG Oral Tablet [facility] ([facility]) fluticasone propionate 50 mcg/actuation nasal spray,suspension [place] 1 spray every day by intranasal route as needed. [facility]ILDA ([facility]) cetirizine hydrochloride 10 MG Oral Tablet [facility]DA ([facility]) albuterol sulfate HFA 90 mcg/actuation a erosol inhaler INHALE 2 PUFFS BY MOUTH EVERY 4 HOURS NEEDED HILDA ( [facility]) Trazodone Hydrochloride 50 MG Oral Tablet [facility] ([facility]) Sumatriptan 25 MG Oral Tablet [facility] ([facility]) Omeprazole 20 MG Delayed Release Oral Capsule [facility] ([facility]) Lorazepam 1 MG Oral Tablet A THENA ([facility]) Hydroxyzine Hydrochloride 25 MG Oral Tablet [facility]DA ([facility]) fluticasone propionate 50 mcg/actuation nasal spray,suspension [place] 1 spray every day by intranasal route as needed. [facility]ILDA ([facility]) cetirizine hydrochloride 10 MG Oral Tablet [facility]DA ([facility]) albuterol sulfate HFA 90 mcg/actuation a erosol inhaler INHALE 2 PUFFS BY MOUTH EVERY 4 HOURS NEEDED [facility]ILDA ( [facility]) cetirizine hydrochloride 10 MG Oral Tablet [facility] ([facility]) Trazodone Hydrochloride 50 MG Oral Tablet [facility] ([facility]) cetirizine hydrochloride 10 MG Oral Tablet [facility] ([facility]) Trazodone Hydrochloride 50 MG Oral Tablet [facility] ([facility]) cetirizine hydrochloride 10 MG Oral Tablet [facility] ([facility]) Trazodone Hydrochloride 50 MG Oral Tablet [facility] ([facility]) cetirizine hydrochloride 10 MG Oral Tablet [facility] ([facility]) Trazodone Hydrochloride 50 MG Oral Tablet [facility] ([facility]) cetirizine hydrochloride 10 MG Oral Tablet [facility] ([facility]) Trazodone Hydrochloride 50 MG Oral Tablet [facility] ([facility]) cetirizine hydrochloride 10 MG Oral Tablet [facility] ([facility]) Trazodone Hydrochloride 50 MG Oral Tablet [facility] ([facility]) cetirizine hydrochloride 10 MG Oral Tablet [facility] ([facility]) Trazodone Hydrochloride 50 MG Oral Tablet [facility] ([facility]) cetirizine hydrochloride 10 MG Oral Tablet [facility] ([facility]) Trazodone Hydrochloride 50 MG Oral Tablet [facility] ([facility]) cetirizine hydrochloride 10 MG Oral Tablet [facility] ([facility]) Trazodone Hydrochloride 50 MG Oral Tablet [facility] ([facility]) cetirizine hydrochloride 10 MG Oral Tablet [facility] ([facility]) Trazodone Hydrochloride 50 MG Oral Tablet [facility] ([facility]) cetirizine hydrochloride 10 MG Oral Tablet [facility] ([facility]) Trazodone Hydrochloride 50 MG Oral Tablet [facility] ([facility]) cetirizine hydrochloride 10 MG Oral Tablet [facility] ([facility]) Trazodone Hydrochloride 50 MG Oral Tablet [facility] ([facility]) cetirizine hydrochloride 10 MG Oral Tablet [facility] ([facility]) Trazodone Hydrochloride 50 MG Oral Tablet [facility] ([facility]) cetirizine hydrochloride 10 MG Oral Tablet [facility] ([facility]) Trazodone Hydrochloride 50 MG Oral Tablet [facility] ([facility]) cetirizine hydrochloride 10 MG Oral Tablet [facility] ([facility]) Trazodone Hydrochloride 50 MG Oral Tablet [facility] ([facility]) cetirizine hydrochloride 10 MG Oral Tablet [facility] ([facility]) Trazodone Hydrochloride 50 MG Oral Tablet [facility] ([facility]) cetirizine hydrochloride 10 MG Oral Tablet [facility] ([facility]) Trazodone Hydrochloride 50 MG Oral Tablet [facility] ([facility]) cetirizine hydrochloride 10 MG Oral Tablet [facility] ([facility]) Trazodone Hydrochloride 50 MG Oral Tablet [facility] ([facility]) Trazodone Hydrochloride 50 MG Oral Tablet [facility] ([facility]) Trazodone Hydrochloride 50 MG Oral Tablet [facility] ([facility]) Trazodone Hydrochloride 50 MG Oral Tablet [facility] ([facility]) Hydroxyzine Hydrochloride 10 MG Oral Tablet [facility] ([facility]) Escitalopram 10 MG Oral Tablet [facility] ([facility]) Trazodone Hydrochloride 50 MG Oral Tablet [facility] ([facility]) Hydroxyzine Hydrochloride 10 MG Oral Tablet [facility] ([facility]) Escitalopram 10 MG Oral Tablet [facility] ([facility]) Trazodone Hydrochloride 50 MG Oral Tablet [facility] ([facility]) Hydroxyzine Hydrochloride 10 MG Oral Tablet [facility] ([facility]) Escitalopram 10 MG Oral Tablet [facility] ([facility]) Trazodone Hydrochloride 50 MG Oral Tablet [facility] ([facility]) Hydroxyzine Hydrochloride 10 MG Oral Tablet [facility] ([facility]) Escitalopram 10 MG Oral Tablet [facility] ([facility]) Hydroxyzine Hydrochloride 10 MG Oral Tablet [facility] ([facility] Escitalopram 10 MG Oral Tablet [facility] ([facility]) Hydroxyzine Hydrochloride 10 MG Oral Tablet [facility] ([facility]) Escitalopram 10 MG Oral Tablet [facility] ([facility] Hydroxyzine Hydrochloride 10 MG Oral Tablet [facility] ([facility]) Escitalopram 10 MG Oral Tablet [facility] ([facility]) Hydroxyzine Hydrochloride 10 MG Oral Tablet [facility] ([facility]) Escitalopram 10 MG Oral Tablet [facility] ([facility]) Hydroxyzine Hydrochloride 10 MG Oral Tablet [facility] ([facility] Escitalopram 10 MG Oral Tablet [facility] ([facility]) Hydroxyzine Hydrochloride 10 MG Oral Tablet [facility] [facility] Escitalopram 10 MG Oral Tablet [facility] ([facility]) Trazodone Hydrochloride 50 MG Oral Tablet [facility] ([facility]) cetirizine hydrochloride 10 MG Oral Tablet [facility] ([facility])
[2020-11-26] MEDS ORDERED: IBUP80TA PO (13:40)
[2020-11-26] MEDS ORDERED: CYCL-707 PO (13:40)
== END 2020-11-25 16:14 | disposition left against medical advice (07) ==
LOC: M ED 14:17
DX: Z53.29 Procedure and treatment not carried out because of patient's decision for other reasons (principal)

== ENCOUNTER 2020-11-26 10:10 | Emergency (ER) | payer BC, SELFPAY ==
[~2020-11-26] VITALS: Ht 182.9 cm; Wt 100.7 kg
--- OUTSIDE RECORDS SUMMARY | 2020-11-26 10:26 | CCD ---
Author Author [facility] Address Unknown Phone Unavailable Care Team Providers Care Mathematical Scientist Name Role Phone Arsh Melissa MD Unavailable [...] Unavailable Arsh Melissa MD Unavailable Unavailable Arsh Meilssa MD Unavailable Unavailable Arsh Melissa MD Unavailable Unavailable Arsh Melissa MD Unavailable Unavailable Arsh Melissa MD Unavailable Unavailable Arsh Melissa MD Unavailable Unavailable Arsh Melissa MD Unavailable Unavailable Arsh Melissa MD Unavailable Unavailable Melissa, Arsh Godinez MD Unavailable Unavailable Melissa, Arsh Godienz MD Unavailable Unavailable Melissa, Arsh Godinez MD [...] LOVE MD Unavailable Unavailable Merlene Sadler Unavailable [phone] Goldsmith, Moon Ceballos MD Unavailable Unavailable Goldsmith, [...] Unavailable Unavailable Maria, O Samah Unavailable Unavailable Maira, O Samah Unavailable Unavailable Maria, O Robiah [...] law may result in a fine or alf sentence or both. A general authorization for the release of medical or other information is NOT sufficient authorization for further disc losure. Allergies and Adverse Reactions Type Description Substance Reaction Status Data Source(s ) Allergy to substance Allergy to substance Allergy to substance [facility] ([facility]) Allergy to substance Allergy to substance Allergy to substance [facility] ([facility]) Encounters Encounter Providers Location Date Indications Data Source(s ) Merlene Sadler LMSW: [address], [place] [address], Ph. Attender: Merlene Sadler [facility] Medical 11/24/2020 12:00:00 AM EDT [facility] ([facility]) Terry Quiroga, RPA-C: [address], [place] [address], Ph. Attender: TERRY QUIROGA RPA-C [facility] Medical 11/22/2020 12:00:00 AM EDT [facility] ([facility]) Terry Quiroga RPA-C: [address], [place] [address], Ph. Attender: TERRY QUIROGA RPA-C [facility] Medical 11/22/2020 12:00:00 AM EDT [facility] ([facility]) Merlene Sadler, FLORAL DESIGNER SALESPERSON: [address], [place] [address], Ph. Attender: Merlene Sadler [facility] Medical 10/28/2020 12:00:00 AM EDT [facility] ([facility]) Merlene Sadler, FLORAL DESIGNER SALESPERSON: [address], [place] [address], Ph. Attender: Merlene Sadler [facility] Medical 10/28/2020 12:00:00 AM EDT [facility] ([facility]) Merlene Sadler, FLORAL DESIGNER SALESPERSON: [address], [place] [address], Ph. Attender: Merlene Sadler [facility] Medical 10/28/2020 12:00:00 AM EDT [facility] ([facility]) Merlene Davisjeffrey, FLORAL DESIGNER SALESPERSON: [address], [place] [address], Ph. Attender: Merlene Sadler [facility] Medical 10/07/2020 12:00:00 AM EDT [facility] ([facility]) Merlene Sadler, FLORAL DESIGNER SALESPERSON: [address], [place] [address], Ph. Attender: Merlene Sadler [facility] Medical 10/07/2020 12:00:00 AM EDT [facility] ([facility]) Merlene Sadler, FLORAL DESIGNER SALESPERSON: [address], [place] [address], Ph. Attender: Merlene Sadler [facility] Medical 10/07/2020 12:00:00 AM EDT [facility] ([facility]) Merlene Sadler, FLORAL DESIGNER SALESPERSON: [address], [place] [address], Ph. Attender: Merlene Sadler [facility] Medical 10/07/2020 12:00:00 AM EDT [facility] ([facility]) Merlene Sadler, FLORAL DESIGNER SALESPERSON: [address], [place] [address], Ph. Attender: Merlene Sadler [facility] Medical 09/23/2020 12:00:00 AM EDT [facility] ([facility]) Merlene Sadler, FLORAL DESIGNER SALESPERSON: [address], [place] [address], Ph. Attender: Merlene Sadler [facility] Medical 09/23/2020 12:00:00 AM EDT [facility] ([facility]) Merlene Sadler, FLORAL DESIGNER SALESPERSON: [address], [place] [address], Ph. Attender: Merlene Sadler [facility] Medical 09/23/2020 12:00:00 AM EDT [facility] ([facility]) Merlene Sadler, FLORAL DESIGNER SALESPERSON: [address], [place] [address], Ph. Attender: Merlene Sadler [facility] Medical 09/23/2020 12:00:00 AM EDT [facility] ([facility]) Merlene Sadler, FLORAL DESIGNER SALESPERSON: [address], [place] [address], Ph. Attender: Merlene Sadler [facility] Medical 09/23/2020 12:00:00 AM EDT [facility] ([facility]) Merlene Sadler, FLORAL DESIGNER SALESPERSON: [address], [place] [address], Ph. Attender: Merlene Sadler [facility] Medical 09/09/2020 12:00:00 AM EDT [facility] ([facility]) Merlene Sadler, FLORAL DESIGNER SALESPERSON: [address], [place] [address], Ph. Attender: Merlene Sadler [facility] Medical 09/09/2020 12:00:00 AM EDT [facility] ([facility]) Merlene Sadler, FLORAL DESIGNER SALESPERSON: [address], [place] [address], Ph. Attender: Merlene Sadler [facility] Medical 09/09/2020 12:00:00 AM EDT [facility] ([facility]) Merlene Sadler, FLORAL DESIGNER SALESPERSON: [address], [place] [address], Ph. Attender: Merlene Sadler [facility] Medical 09/09/2020 12:00:00 AM EDT [facility] ([facility]) Merlene Sadler, FLORAL DESIGNER SALESPERSON: [address], [place] [address], Ph. Attender: Merlene Sadler [facility] Medical 09/09/2020 12:00:00 AM EDT [facility] ([facility]) Merlene Sadler, [facility]: [address], [place] [address], Ph. Attender: Merlene Sadler [facility] Medical 09/09/2020 12:00:00 AM EDT [facility] ([facility]) Merlene Sadler FLORAL DESIGNER SALESPERSON: [address], [place] [address], Ph. Attender: Merlene Sadler [facility] Medical 08/26/2020 12:00:00 AM EDT [facility] ([facility]) Merlene Sadler, FLORAL DESIGNER SALESPERSON: [address], [place] [address], Ph. Attender: Merlene Sadler [facility] Medical 08/26/2020 12:00:00 AM EDT [facility] ([facility]) Merlene Sadler FLORAL DESIGNER SALESPERSON: [address], [place] [address], Ph. Attender: Merlene Sadler [facility] Medical 08/26/2020 12:00:00 AM EDT [facility] ([facility]) Merlene Sadler FLORAL DESIGNER SALESPERSON: [address], [place] [address], Ph. Attender: Merlene Sadler [facility] Medical 08/26/2020 12:00:00 AM EDT [facility] ([facility]) Merlene Sadler, FLORAL DESIGNER SALESPERSON: [address], [place] [address], Ph. Attender: Merlene Sadler [facility] Medical 08/26/2020 12:00:00 AM EDT [facility] ([facility]) Merlene Sadler, [facility]: [address], [place] [address], Ph. Attender: Merlene Sadler [facility] Medical 08/26/2020 12:00:00 AM EDT [facility] ([facility]) Merlene Sadler LMSW: [address], [place] [address], Ph. Attender: Merlene Sadler [facility] Medical 08/26/2020 12:00:00 AM EDT [facility] ([facility]) Merlene Sadler, FLORAL DESIGNER SALESPERSON: [address], [place] [address], Ph. Attender: Merlene Sadler [facility] Medical 08/18/2020 12:00:00 AM EDT [facility] ([facility]) Merlene Sadler [facility]: [address], [place] [address], Ph. Attender: Merlene Sadler [facility] Medical 08/18/2020 12:00:00 AM EDT [facility] ([facility]) Merlene Sadler FLORAL DESIGNER SALESPERSON: [address], [place] [address], Ph. Attender: Merlene Sadler [facility] Medical 08/18/2020 12:00:00 AM EDT [facility] ([facility]) Merlene Sadler, FLORAL DESIGNER SALESPERSON: [address], [place] [address], Ph. Attender: Merlene Sadler [facility] Medical 08/18/2020 12:00:00 AM EDT [facility] ([facility]) Merlene Sadler, FLORAL DESIGNER SALESPERSON: [address], [place] [address], Ph. Attender: Merlene Sadler [facility] Medical 08/18/2020 12:00:00 AM EDT [facility] ([facility]) Merlene Sadler LMSW: [address], [place] [address], Ph. Attender: Merlene Sadler [facility] Medical 08/18/2020 12:00:00 AM EDT [facility] ([facility]) Merlene Sadler, FLORAL DESIGNER SALESPERSON: [address], [place] [address], Ph. Attender: Merlene Sadler [facility] Medical 08/18/2020 12:00:00 AM EDT [facility] ([facility]) Merlene Sadler, FLORAL DESIGNER SALESPERSON: [address], [place] [address], Ph. Attender: Merlene Sadler [facility] Medical 08/18/2020 12:00:00 AM EDT [facility] ([facility]) Merlene Sadler, FLORAL DESIGNER SALESPERSON: [address], [place] [address], Ph. Attender: Merlene Sadler [facility] Medical 08/18/2020 12:00:00 AM EDT [facility] ([facility]) Merlene Sadler, [facility]: [address], [place] [address], Ph. Attender: Merlene Sadler [facility] Medical 08/18/2020 12:00:00 AM EDT [facility] ([facility]) Herbert Melissa MD: [address] [place] [address], Ph. Attender: Herbert Melissa MD [facility] Medical 08/12/2020 12:00:00 AM EDT [facility] ([facility]) Merlene Sadler [facility]: [address], [place] [address], Ph. Attender: Merlene Sadler [facility] Medical 08/12/2020 12:00:00 AM EDT [facility] ([facility]) Herbert Melissa MD: [address] [place] [address], Ph. Attender: Herbert Melissa MD [facility] Medical 08/12/2020 12:00:00 AM EDT [facility] ([facility]) Merlene Sadler, [facility]: [address], [place] [address], Ph. Attender: Merlene Sadler [facility] Medical 08/12/2020 12:00:00 AM EDT [facility] ([facility]) Herbetr Melissa MD: [address] [place] [address], Ph. Attender: Herbert Melissa MD [facility] Medical 08/12/2020 12:00:00 AM EDT [facility] ([facility]) Merlene Sadler [facility]: [address], [place] [address], Ph. Attender: Merlene Doroteo [facility] Medical 08/12/2020 12:00:00 AM EDT [facility] ([facility]) Herbert Melissa MD: [address], [place] [address], Ph. Attender: Herbert Melissa MD [facility] Medical 08/12/2020 12:00:00 AM EDT [facility] ([facility]) Merlene ELISE SadlerSW: [address], [place] [address], Ph. Attender: Merlene Sadler [facility] Medical 08/12/2020 12:00:00 AM EDT [facility] ([facility]) Herbert Melissa MD: [address] [place] [address], Ph. Attender: Herbert Melissa MD [facility] Medical 08/12/2020 12:00:00 AM EDT [facility] ([facility]) Merlene Sadler LMSW: [address], [place] [address], Ph. Attender: Merlene Sadler [facility] Medical 08/12/2020 12:00:00 AM EDT [facility] ([facility]) Herbert Melissa MD: [address] [place] [address], Ph. Attender: Herbert Melissa MD [facility] Medical 08/12/2020 12:00:00 AM EDT [facility] ([facility]) Merlene Pupillo, FLORAL DESIGNER SALESPERSON: [address], [place] [address], Ph. Attender: Merlene Sadler [facility] Medical 08/12/2020 12:00:00 AM EDT [facility] ([facility]) Herbert Melissa MD: [address], [place] [address], Ph. Attender: Herbert Melissa MD [facility] Medical 08/12/2020 12:00:00 AM EDT [facility] ([facility]) Merlene Sadler, [facility]: [address], [place] [address], Ph. Attender: Merlene Davisjeffrey [facility] Medical 08/12/2020 12:00:00 AM EDT [facility] ([facility]) Herbert Melissa MD: [address] [place] [address], Ph. Attender: Herbert Melissa MD [facility] Medical 08/12/2020 12:00:00 AM EDT [facility] ([facility]) Merlene Sadler, [facility]: [address], [place] [address], Ph. Attender: Melrene Davisjeffrey [facility] Medical 08/12/2020 12:00:00 AM EDT [facility] ([facility]) Herbert Melissa MD: [address] [place] [address], Ph. Attender: Herbert Melissa MD [facility] Medical 08/12/2020 12:00:00 AM EDT [facility] ([facility]) Merlene Sadler, FLORAL DESIGNER SALESPERSON: [address], [place] [address], Ph. Attender: Merlene Sadler [facility] Medical 08/12/2020 12:00:00 AM EDT [facility] ([facility]) Herbert Melissa MD: [address] [place] [address], Ph. Attender: Herbert Melissa MD [facility] Medical 08/12/2020 12:00:00 AM EDT [facility] ([facility]) Merlene Sadler, FLORAL DESIGNER SALESPERSON: [address], [place] [address], Ph. Attender: Merlene Sadler [facility] Medical 08/12/2020 12:00:00 AM EDT [facility] ([facility]) Herbert Melissa MD: [address] [place] [address], Ph. Attender: Herbert Melissa MD [facility] Medical 08/12/2020 12:00:00 AM EDT [facility] ([facility]) Merlene Sadler, [facility]: [address], [place] [address], Ph. Attender: Merlene Sadler [facility] Medical 08/12/2020 12:00:00 AM EDT [facility] ([facility]) Merlene Sadler, [facility]: [address], [place] [address], Ph. Attender: Merlene Sadler [facility] Medical 08/05/2020 12:00:00 AM EDT [facility] ([facility]) Merlene Sadler, FLORAL DESIGNER SALESPERSON: [address], [place] [address], Ph. Attender: Merlene Sadler [facility] Medical 08/05/2020 12:00:00 AM EDT [facility] ([facility]) Merlene Sadler, FLORAL DESIGNER SALESPERSON: [address], [place] [address], Ph. Attender: Merlene Sadler [facility] Medical 08/05/2020 12:00:00 AM EDT [facility] ([facility]) Merlene Sadler, FLORAL DESIGNER SALESPERSON: [address], [place] [address], Ph. Attender: Merlene Sadler [facility] Medical 08/05/2020 12:00:00 AM EDT [facility] ([facility]) Merlene Sadler, FLORAL DESIGNER SALESPERSON: [address], [place] [address], Ph. Attender: Merlene Sadler [facility] Medical 08/05/2020 12:00:00 AM EDT [facility] ([facility]) Merlene Sadler, FLORAL DESIGNER SALESPERSON: [address], [place] [address], Ph. Attender: Merlene Sadler [facility] Medical 08/05/2020 12:00:00 AM EDT [facility] ([facility]) Merlene Sadler, FLORAL DESIGNER SALESPERSON: [address], [place] [address], Ph. Attender: Merlene Sadler [facility] Medical 08/05/2020 12:00:00 AM EDT [facility] ([facility]) Merlene Sadler, FLORAL DESIGNER SALESPERSON: [address], [place] [address], Ph. Attender: Merlene Sadler [facility] Medical 08/05/2020 12:00:00 AM EDT [facility] ([facility]) Merlene Sadler, [facility]: [address], [place] [address], Ph. Attender: Merlene Sadler [facility] Medical 08/05/2020 12:00:00 AM EDT [facility] ([facility]) Merlene Sadler, FLORAL DESIGNER SALESPERSON: [address], [place] [address], Ph. Attender: Merlene Sadler [facility] Medical 08/05/2020 12:00:00 AM EDT [facility] ([facility]) Merlene Sadler, FLORAL DESIGNER SALESPERSON: [address], [place] [address], Ph. Attender: Merlene Sadler [facility] Medical 08/05/2020 12:00:00 AM EDT [facility] ([facility]) Merlene Sadler, FLORAL DESIGNER SALESPERSON: [address], [place] [address], Ph. Attender: Merlene Sadler [facility] Medical 08/05/2020 12:00:00 AM EDT [facility] ([facility]) Merlene Sadler FLORAL DESIGNER SALESPERSON: [address], [place] [address], Ph. Attender: Merlene Sadler [facility] Medical 07/29/2020 12:00:00 AM EDT [facility] ([facility]) Merlene Sadler, FLORAL DESIGNER SALESPERSON: [address], [place] [address], Ph. Attender: Merlene Sadler [facility] Medical 07/29/2020 12:00:00 AM EDT [facility] ([facility]) Merlene Sadler, [facility]: [address], [place] [address], Ph. Attender: Merlene Sadler [facility] Medical 07/29/2020 12:00:00 AM EDT [facility] ([facility]) Merlene Sadler [facility]: [address], [place] [address], Ph. Attender: Merlene Sadler [facility] Medical 07/29/2020 12:00:00 AM EDT [facility] ([facility]) Merlene Sadler, [facility]: [address], [place] [address], Ph. Attender: Merlene Sadler [facility] Medical 07/29/2020 12:00:00 AM EDT [facility] ([facility]) Merlene Sadler, [facility]: [address], [place] [address], Ph. Attender: Merlene Sadler [facility] Medical 07/29/2020 12:00:00 AM EDT [facility] ([facility]) Merlene Sadler [facility]: [address], [place] [address], Ph. Attender: Merlene Sadler [facility] Medical 07/29/2020 12:00:00 AM EDT [facility] ([facility]) Merlene Sadler, [facility]: [address], [place] [address], Ph. Attender: Merlene Sadler [facility] Medical 07/29/2020 12:00:00 AM EDT [facility] ([facility]) Merlene Sadler, [facility]: [address], [place] [address], Ph. Attender: Merlene Sadler [facility] Medical 07/29/2020 12:00:00 AM EDT [facility] ([facility]) Merlene Sadler [employer] SALESPERSON: [address], [place] [address], Ph. Attender: Merlene Sadler [facility] Medical 07/29/2020 12:00:00 AM EDT [facility] ([facility]) Merlene Sadler, [employer] SALESPERSON: [address], [place] [address], Ph. Attender: Merlene Sadler [facility] Medical 07/29/2020 12:00:00 AM EDT [facility] ([facility]) Merlene Sadler, [employer] SALESPERSON: [address], [place] [address], Ph. Attender: Merlene Sadler [facility] Medical 07/29/2020 12:00:00 AM EDT [facility] ([facility]) Merlene Sadler [facility]: [address], [place] [address], Ph. Attender: Merlene Sadler [facility] Medical 07/29/2020 12:00:00 AM EDT HILDA ([facility]) Merlene Sadler, [employer]: [address], [place] [address], Ph. Attender: Merlene Sadler [facility] Medical 07/22/2020 12:00:00 AM EDT HILDA ([facility]) Herbert Melissa MD: [address] [place] [address], Ph. Attender: Herbert Melissa MD [facility] Medical 07/22/2020 12:00:00 AM EDT HILDA ([facility]) Merlene Sadler, [facility]: [address], [place] [address], Ph. Attender: Merlenemarie Sadler [facility] Medical 07/22/2020 12:00:00 AM EDT HILDA (Story [facility] Herbert Melissa MD: [address] [place] [address], Ph. Attender: Herbert Melissa MD [facility] Medical 07/22/2020 12:00:00 AM EDT HILDA ([facility]) Merlene Sadler [facility]: [address], [place] [address], Ph. Attender: Merlene Davisjeffrey [facility] Medical 07/22/2020 12:00:00 AM EDT [facility] ([facility]) Herbert Melissa MD: [address] [place] [address], Ph. Attender: Herbert Melissa MD [facility] Medical 07/22/2020 12:00:00 AM EDT HILDA ([facility]) Merlene Davisjeffrey [facility]: [address], [place] [address], Ph. Attender: Merlene Ryanjeffrey [facility] Medical 07/22/2020 12:00:00 AM EDT [facility] ([facility]) Herbert Melissa MD: [address] [place] [address], Ph. Attender: Herbert Melissa MD [facility] Medical 07/22/2020 12:00:00 AM EDT HILDA ([facility]) Merlene Sadler, [facility]: [address], [address], [place] [address], Ph. Attender: Merlene Sadler [facility] Medical 07/22/2020 12:00:00 AM EDT [facility] ([facility]) Herbert Melissa MD: [address] [place] [address], Ph. Attender: Herbert Melissa MD [facility] Medical 07/22/2020 12:00:00 AM EDT HILDA ([facility]) Merlene Sadler [facility]: [address], [place] [address], Ph. Attender: Merlene Davisjeffrey [facility] Medical 07/22/2020 12:00:00 AM EDT [facility] ([facility]) Herbert Melissa MD: [address] [place] [address], Ph. Attender: Herbert Melissa MD [facility] Medical 07/22/2020 12:00:00 AM EDT HILDA ([facility]) Merlene Sadler, [facility]: [address], [address], [place] [address], Ph. Attender: Merlene Davisjeffrey [facility] Medical 07/22/2020 12:00:00 AM EDT [facility] ([facility]) Herbert Melissa MD: [address] [place] [address], Ph. Attender: Herbert Melissa MD [facility] Medical 07/22/2020 12:00:00 AM EDT [facility] ([facility]) Merlene Sadler, [facility]: [address], [address], [place] [address], Ph. Attender: Merlene Sadler [facility] Medical 07/22/2020 12:00:00 AM EDT [facility] ([facility]) Herbert Melissa MD: [address] [place] [address], Ph. Attender: Herbert Melissa MD [facility] Medical 07/22/2020 12:00:00 AM EDT H[facility] ([facility]) Herbert Melissa MD: [address] [place] [address], Ph. Attender: Herbert Melissa MD [facility] Medical 07/22/2020 12:00:00 AM EDT H[facility]DA ([facility]) Merlene Sadler [employer]: [address], [place] [address], Ph. Attender: Merlene Davisjeffrey [facility] Medical 07/22/2020 12:00:00 AM EDT [facility] ([facility]) Herbert Melissa MD: [address] [place] [address], Ph. Attender: Herbert Melissa MD [facility] Medical 07/22/2020 12:00:00 AM EDT HILDA ([facility]) Merlene Sadler [employer]: [address], [address], [place] [address], Ph. Attender: Merlene Sadler [facility] Medical 07/22/2020 12:00:00 AM EDT [facility] ([facility]) Herbert Melissa MD: [address] [place] [address], Ph. Attender: Herbert Melissa MD [facility] Medical 07/22/2020 12:00:00 AM EDT [facility]DA ([facility]) Merlene Sadler, [facility]: [address], [address], [place] [address], Ph. Attender: Merlene Sadler [facility] Medical 07/22/2020 12:00:00 AM EDT [facility] ([facility]) Herbert Melissa MD: [address] [place] [address], Ph. Attender: Herbert Melissa MD [facility] Medical 07/22/2020 12:00:00 AM EDT [facility] ([facility]) Merlene Sadler [facility]: [address], [address], [place] [address], Ph. Attender: Merlene Sadler [facility] Medical 07/22/2020 12:00:00 AM EDT [facility] ([facility]) Merlene Sadler, [facility]: [address], [place] [address], Ph. Attender: Merlene Sadler [facility] Medical 07/22/2020 12:00:00 AM EDT [facility] ([facility]) Herbert Melissa MD: [address] [place] [address], Ph. Attender: Herbert Melissa MD [facility] Medical 07/22/2020 12:00:00 AM EDT [facility] ([facility]) Merlene Sadler, [facility]: [address], [address], [place] [address], Ph. Attender: Merlene Sadler [facility] Medical 07/22/2020 12:00:00 AM EDT [facility] ([facility]) Herbert Melissa MD: [address] , [place] [address], Ph. Attender: Herbert Melissa MD [facility] Medical 07/22/2020 12:00:00 AM EDT H[facility]DA ([facility]) Merlene Sadler, [employer]: [address], [address], [place] [address], Ph. Attender: Merlene Sadler [facility] Medical 07/01/2020 12:00:00 AM EDT [facility] ([facility]) Merlene Sadler, [facility]: [address], [address], [place] [address], Ph. Attender: Merlene Sadler [facility] Medical 07/01/2020 12:00:00 AM EDT [facility] ([facility]) Merlene Sadler, [facility]: [address], [address], [place] [address], Ph. Attender: Merlene Sadler [facility] Medical 07/01/2020 12:00:00 AM EDT [facility] ([facility]) Merlene Sadler, [facility]: [address], [address], [place] [address], Ph. Attender: Merlene Sadler [facility] Medical 07/01/2020 12:00:00 AM EDT [facility] ([facility]) Merlene Sadler, [facility]: [address], [address], [place] [address], Ph. Attender: Merlene Sadler [facility] Medical 07/01/2020 12:00:00 AM EDT [facility] ([facility]) Merlene Sadler, [employer]: [address], [address], [place] [address], Ph. Attender: Merlene Sadler [facility] Medical 07/01/2020 12:00:00 AM EDT [facility] ([facility]) Merlene Sadler, [employer]: [address], [address], [place] [address], Ph. Attender: Merlene Sadler [facility] Medical 07/01/2020 12:00:00 AM EDT [facility] ([facility]) Merlene Sadler, [employer]: [address], [address], [place] [address], Ph. Attender: Merlene Sadler [facility] Medical 07/01/2020 12:00:00 AM EDT [facility] ([facility]) Merlene Sadler, [employer]: [address], [place] [address], Ph. Attender: Merlene Sadler [facility] Medical 07/01/2020 12:00:00 AM EDT [facility] ([facility]) Merlene Sadler, [employer]: [address], [address], [place] [address], Ph. Attender: Merlene Sadler [facility] Medical 07/01/2020 12:00:00 AM EDT [facility] ([facility]) Merlene Sadler, [employer]: [address], [address], [place] [address], Ph. Attender: Merlene Sadler [facility] Medical 07/01/2020 12:00:00 AM EDT [facility] ([facility]) Merlene Sadler, [employer]: [address], [address], [place] [address], Ph. Attender: Merlene Sadler [facility] Medical 07/01/2020 12:00:00 AM EDT [facility] ([facility]) Merlene Sadler, [employer]: [address], [place] [address], Ph. Attender: Merlene Sadler [facility] Medical 07/01/2020 12:00:00 AM EDT [facility] ([facility]) Merlene Sadler, [employer]: [address], [place] [address], Ph. Attender: Merlene Sadler [facility] Medical 07/01/2020 12:00:00 AM EDT [facility] ([facility]) Merlene Sadler, [employer]: [address], [place] [address], Ph. Attender: Merlene Sadler [facility] Medical 07/01/2020 12:00:00 AM EDT [facility] ([facility]) Merlene Sadler, [employer]: [address], [address], [place] [address], Ph. Attender: Merlene Sadler [facility] Medical 06/22/2020 12:00:00 AM EDT [facility] ([facility]) Merlene Sadler, [employer]: [address], [address], [place] [address], Ph. Attender: Merlene Sadler [facility] Medical 06/22/2020 12:00:00 AM EDT [facility] ([facility]) Merlene Sadler, [employer]: [address], [address], [place] [address], Ph. Attender: Merlene Sadler [facility] Medical 06/22/2020 12:00:00 AM EDT [facility] ([facility]) Merlene Sadler, [employer]: [address], [address], [place] [address], Ph. Attender: Merlene Sadler [facility] Medical 06/22/2020 12:00:00 AM EDT [facility] ([facility]) Merlene Sadler, [employer]: [address], [address], [place] [address], Ph. Attender: Merlene Sadler [facility] Medical 06/22/2020 12:00:00 AM EDT [facility] ([facility]) Merlene Sadler, [employer]: [address], [address], [place] [address], Ph. Attender: Merlene Sadler [facility] Medical 06/22/2020 12:00:00 AM EDT [facility] ([facility]) Merlene Sadler, [employer]: [address], [address], [place] [address], Ph. Attender: Merlene Sadler [facility] Medical 06/22/2020 12:00:00 AM EDT [facility] ([facility]) Merlene Sadler, [employer]: [address], [address], [place] [address], Ph. Attender: Merlene Sadler [facility] Medical 06/22/2020 12:00:00 AM EDT [facility] ([facility]) Merlene Sadler, [employer]: [address], [address], [place] [address], Ph. Attender: Merlene Sadler [facility] Medical 06/22/2020 12:00:00 AM EDT [facility] ([facility]) Merlene Sadler, [employer]: [address], [address], [place] [address], Ph. Attender: Merlene Sadler [facility] Medical 06/22/2020 12:00:00 AM EDT [facility] ([facility]) Merlene Sadler, [employer]: [address], [address], [place] [address], Ph. Attender: Merlene Sadler [facility] Medical 06/22/2020 12:00:00 AM EDT [facility] ([facility]) Merlene Sadler, [employer]: [address], [address], [place] [address], Ph. Attender: Merlene Sadler [facility] Medical 06/22/2020 12:00:00 AM EDT [facility] ([facility]) Merlene Sadler, [employer]: [address], [address], [place] [address], Ph. Attender: Merlene Sadler [facility] Medical 06/22/2020 12:00:00 AM EDT [facility] ([facility]) Merlene Sadler, [employer]: [address], [place] [address], Ph. Attender: Merlene Sadler [facility] Medical 06/22/2020 12:00:00 AM EDT [facility] ([facility]) Merlene Sadler, [facility]: [address], [address], [place] [address], Ph. Attender: Merlene Sadler [facility] Medical 06/22/2020 12:00:00 AM EDT [facility] ([facility]) Merlene Sadler, [employer]: [address], [address], [place] [address], Ph. Attender: Merlene Sadler [facility] Medical 06/22/2020 12:00:00 AM EDT [facility] ([facility]) Merlene Sadler, [employer]: [address], [place] [address], Ph. Attender: Merlene Sadler [facility] Medical 06/17/2020 12:00:00 AM EDT [facility] ([facility]) Merlene Sadler, [employer]: [address], [place] [address], Ph. Attender: Merlene Sadler [facility] Medical 06/17/2020 12:00:00 AM EDT [facility] ([facility]) Merlene Sadler, [employer]: [address], [place] [address], Ph. Attender: Merlene Sadler [facility] Medical 06/17/2020 12:00:00 AM EDT [facility] ([facility]) Merlene Sadler, [employer]: [address], [place] [address], Ph. Attender: eMrlene Sadler [facility] Medical 06/17/2020 12:00:00 AM EDT [facility] ([facility]) Merlene Sadler, [facility]: [address], [place] [address], Ph. Attender: Merlene Sadler [facility] Medical 06/17/2020 12:00:00 AM EDT [facility] ([facility]) Merlene Sadler, [employer]: [address], [place] [address], Ph. Attender: Merlene Sadler [facility] Medical 06/17/2020 12:00:00 AM EDT [facility] ([facility]) Merlene Sadler, [employer]: [address], [place] [address], Ph. Attender: Merlene Sadler [facility] Medical 06/17/2020 12:00:00 AM EDT [facility] ([facility]) Merlene Sadler, [employer]: [address], [place] [address], Ph. Attender: Merlene Sadler [facility] Medical 06/17/2020 12:00:00 AM EDT [facility] ([facility]) Merlene Sadler [employer]: [address], [place] [address], Ph. Attender: Merlene Sadler [facility] Medical 06/17/2020 12:00:00 AM EDT [facility] ([facility]) Merlene Sadler, [employer]: [address], [place] [address], Ph. Attender: Merlene Sadler [facility] Medical 06/17/2020 12:00:00 AM EDT [facility] ([facility]) Merlene Sadler, [facility]: [address], [place] [address], Ph. Attender: Merlene Sadler [facility] Medical 06/17/2020 12:00:00 AM EDT [facility] ([facility]) Merlene Sadler [employer]: [address], [place] [address], Ph. Attender: Merlene Sadler [facility] Medical 06/17/2020 12:00:00 AM EDT [facility] ([facility]) Merlene Sadler, [facility]: [address], [place] [address], Ph. Attender: Merlene Sadler [facility] Medical 06/17/2020 12:00:00 AM EDT HL[facility] ([facility]) Merlene Sadler, [facility]: [address], [place] [address], Ph. Attender: Merlene Sadler [facility] Medical 06/17/2020 12:00:00 AM EDT [facility] ([facility]) Merlene Sadler [facility]: [address], [place] [address], Ph. Attender: Merlene Sadler [facility] Medical 06/17/2020 12:00:00 AM EDT [facility] ([facility]) Merlene Sadler, [employer]: [address], [place] [address], Ph. Attender: Merlene Sadler [facility] Medical 06/17/2020 12:00:00 AM EDT [facility] ([facility]) Merlene Sadler, [employer]: [address], [place] [address], Ph. Attender: Merlene Sadler [facility] Medical 06/17/2020 12:00:00 AM EDT [facility] ([facility]) Outpatient Attender: Ruthie Sifuentes MD Main office - [facility] 05/20/2020 08:30:00 AM EDT MEDENT ([facility]) OFFICE OUTPATIENT NEW 30 MINUTES Attender: Tucker Goldsmith MD Physic al Therapy 05/14/2020 09:30:00 AM EDT MEDJUAN RAMON ([facility]) LESLY TalamantesW-R: [address], [place] [address], Ph. Attender: Sharon Bautista [facility] Medical 05/06/2020 12:00:00 AM EDT [facility] ([facility]) LESLY TalamantesW-R: [address], [place] [address], Ph. Attender: Sharon Bautista [facility] Medical 05/06/2020 12:00:00 AM EDT [facility] ([facility]) LESLY TalamantesW-R: [address], [place] [address], Ph. Attender: Sharon Bautista [facility] Medical 05/06/2020 12:00:00 AM EDT [facility] ([facility]) LESLY TalamantesW-R: [address], [place] [address], Ph. Attender: Sharon Bautista [facility] Medical 05/06/2020 12:00:00 AM EDT [facility] ([facility]) LESLY TalamantesW-R: [address], [place] [address], Ph. Attender: Sharon Megagueromarilyalan [facility] Medical 05/06/2020 12:00:00 AM EDT [facility] ([facility]) LESLY TalamantesW-R: [address], [place] [address], Ph. Attender: Sharon Westmarilyalan [facility] Medical 05/06/2020 12:00:00 AM EDT [facility] ([facility]) LESLY TalamantesW-R: [address], [place] [address], Ph. Attender: Sharon Bautista [facility] Medical 05/06/2020 12:00:00 AM EDT [facility] ([facility]) LESLY TalamantesW-R: [address], [place] [address], Ph. Attender: Sharon Bautista [facility] Medical 05/06/2020 12:00:00 AM EDT [facility] ([facility]) LESLY TalamantesW-R: [address], [place] [address], Ph. Attender: Sharon Bautista [facility] Medical 05/06/2020 12:00:00 AM EDT [facility] ([facility]) LESLY TalamantesW-R: [address], [place] [address], Ph. Attender: Sharon Bautista [facility] Medical 05/06/2020 12:00:00 AM EDT [facility] ([facility]) SharonLESLY MccartneyW-R: [address], [address], [place] [address], Ph. Attender: Sharon Bautista [facility] Medical 05/06/2020 12:00:00 AM EDT [facility] ([facility]) LESLY TalamantesW-R: [address], [place] [address], Ph. Attender: Sharon Bautista [facility] Medical 05/06/2020 12:00:00 AM EDT [facility] ([facility]) LESLY TalamantesW-R: [address], [place] [address], Ph. Attender: Sharon Bautista [facility] Medical 05/06/2020 12:00:00 AM EDT [facility] ([facility]) LESLY TalamantesW-R: [address], [place] [address], Ph. Attender: Sharon Megagueromarilyalan [facility] Medical 05/06/2020 12:00:00 AM EDT [facility] ([facility]) LESLY TalamantesW-R: [address], [place] [address], Ph. Attender: Sharon Michele [facility] Medical 05/06/2020 12:00:00 AM EDT [facility] ([facility]) LESLY TalamantesW-R: [address], [place] [address], Ph. Attender: Sharon Bautista [facility] Medical 05/06/2020 12:00:00 AM EDT [facility] ([facility]) SharonLESLY MccartneyW-R: [address], [place] [address], Ph. Attender: Sharon Bautista [facility] Medical 05/06/2020 12:00:00 AM EDT [facility] ([facility]) LESLY TalamantesW-R: [address], [place] [address], Ph. Attender: Sharon Bautista [facility] Medical 05/06/2020 12:00:00 AM EDT HILDA ([facility]) Chayo Dickerson RPA-C: [address], [place] [address], Ph. Attender: CHAYO DICKERSON [facility] Medical 05/03/2020 12:00:00 AM EDT HILDA ([facility]) Chayo Dickerson RPA-C: [address], [place] [address], Ph. Attender: CHAYO DICKERSON [facility] Medical 05/03/2020 12:00:00 AM EDT SAYNER ([facility]) Chayo Dickerson RPA-C: [address], [place] [address], Ph. Attender: CHAYO DICKERSON [facility] Medical 05/03/2020 12:00:00 AM EDT HILDA ([facility]) Chayo Dickerson RPA-C: [address], [place] [address], Ph. Attender: CHAYO DICKERSON [facility] Medical 05/03/2020 12:00:00 AM EDT HILDA ([facility]) Chayo Dickerson RPA-C: [address], [place] [address], Ph. Attender: CHAYO DICKERSON [facility] Medical 05/03/2020 12:00:00 AM EDT HILDA ([facility]) Chayo Dickerson RPA-C: [address], [place] [address], Ph. Attender: CHAYO DICKERSON [facility] Medical 05/03/2020 12:00:00 AM EDT [place] ([facility]) Chayo Dickerson RPA-C: [address], [place] [address], Ph. Attender: CHAYO DICKERSON [facility] Medical 05/03/2020 12:00:00 AM EDT [place] ([facility]) Chayo Dickerson RPA-C: [address], [place] [address], Ph. Attender: CHAYO DICKERSON [facility] Medical 05/03/2020 12:00:00 AM EDT [facility] ([facility]) Chayo Dickerson RPA-C: [address], [place] [address], Ph. Attender: CHAYO DICKERSON [facility] Medical 05/03/2020 12:00:00 AM EDT [facility] ([facility]) Chayo Dickerson RPA-C: [address], [place] [address], Ph. Attender: CHAYO DICKERSON [facility] Medical 05/03/2020 12:00:00 AM EDT [place] ([facility]) Chayo Dickerson RPA-C: [address], [place] [address], Ph. Attender: CHAYO DICKERSON [facility] Medical 05/03/2020 12:00:00 AM EDT [place] ([facility]) Chayo Dickerson RPA-C: [address], [place] [address], Ph. Attender: CHAYO DICKERSON [facility] Medical 05/03/2020 12:00:00 AM EDT [place] ([facility]) Chayo Dickerson RPA-C: [address], [place] [address], Ph. Attender: CHAYO DICKERSON [facility] Medical 05/03/2020 12:00:00 AM EDT [place] ([facility]) Chayo Dickerson RPA-C: [address], [place] [address], Ph. Attender: CHAYO DICKERSON [facility] Medical 05/03/2020 12:00:00 AM EDT [place] ([facility]) Chayo Dickerson RPA-C: [address], [place] [address], Ph. Attender: [facility]ERSON [facility] 05/03/2020 12:00:00 AM EDT [place] ([facility]) Chayo Dickerson RPA-C: [address], [place] [address], Ph. Attender: CHAYO DICKERSON [facility] Medical 05/03/2020 12:00:00 AM EDT [place] ([facility]) Chayo Dickerson RPA-C: [address], [place] [address], Ph. Attender: CHAYO DICKERSON [facility] Medical 05/03/2020 12:00:00 AM EDT [place] ([facility]) Chayo Dickerson RPA-C: [address], [place] [address], Ph. Attender: CHAYO DICKERSON [facility] Medical 05/03/2020 12:00:00 AM EDT [place] ([facility]) Chayo Dickerson RPA-C: [address], [place] [address], Ph. Attender: CHAYO DICKERSON [facility] Medical 05/03/2020 12:00:00 AM EDT [facility] ([facility]) LESLY TalamantesW-R: [address], [place] [address], Ph. Attender: Sharon Bautista [facility] Medical 04/22/2020 12:00:00 AM EDT [facility] ([facility]) LESLY TalamantesW-R: [address], [place] [address], Ph. Attender: Sharon Bautista [facility] Medical 04/22/2020 12:00:00 AM EDT [place] ([facility]) SharonLESLY MccartneyW-R: [address], [place] [address], Ph. Attender: Sharon Bautista [facility] Medical 04/22/2020 12:00:00 AM EDT [facility] ([facility]) LESLY TalamantesW-R: [address], [place] [address], Ph. Attender: Sharon Bautista [facility] Medical 04/22/2020 12:00:00 AM EDT [facility] ([facility]) LESLY TalamantesW-R: [address], [place] [address], Ph. Attender: Sharon Bautista [facility] Medical 04/22/2020 12:00:00 AM EDT [facility] ([facility]) LESLY TalamantesW-R: [address], [place] [address], Ph. Attender: Sharon Bautista [facility] Medical 04/22/2020 12:00:00 AM EDT [facility] ([facility]) LESLY TalamantesW-R: [address], [place] [address], Ph. Attender: Sharon Bautista [facility] Medical 04/22/2020 12:00:00 AM EDT [facility] ([facility]) LESLY TalamantesW-R: [address], [place] [address], Ph. Attender: Sharon Bautista [facility] Medical 04/22/2020 12:00:00 AM EDT [facility] ([facility]) LESLY TalamantesW-R: [address], [place] [address], Ph. Attender: Sharon Bautista [facility] Medical 04/22/2020 12:00:00 AM EDT [place] ([facility]) LESLY TalamantesW-R: [address], [place] [address], Ph. Attender: Sharon Ayoubgueromarilyalan [facility] Medical 04/22/2020 12:00:00 AM EDT [facility] ([facility]) LESLY TalamantesW-R: [address], [place] [address], Ph. Attender: Sharon Megagueromarilyalan [facility] Medical 04/22/2020 12:00:00 AM EDT [place] ([facility]) LESLY TalamantesW-R: [address], [place] [address], Ph. Attender: Sharonlouisa Westmarilyalan [facility] Medical 04/22/2020 12:00:00 AM EDT [place] ([facility]) LESLY TalamantesW-R: [address], [place] [address], Ph. Attender: Sharon Bautista [facility] Medical 04/22/2020 12:00:00 AM EDT [place] ([facility]) Sharon Low, DIRECTOR OF RESEARCH AND DEVELOPMENT-R: [address], [address], [place] [address], Ph. Attender: Sharon Bautista [facility] Medical 04/22/2020 12:00:00 AM EDT [place] ([facility]) Sharon LouiseLESLY saulW-R: [address], [address], [place] [address], Ph. Attender: Sharon Bautista [facility] Medical 04/22/2020 12:00:00 AM EDT [place] ([facility]) SharonLESLY MccartneyW-R: [address], [place] [address], Ph. Attender: Sharon Bautista [facility] Medical 04/22/2020 12:00:00 AM EDT [place] ([facility]) SharonLESLY MccartneyW-R: [address], [place] [address], Ph. Attender: Sharon Bautista [facility] Medical 04/22/2020 12:00:00 AM EDT [facility] ([facility]) LESLY TalamantesW-R: [address], [place] [address], Ph. Attender: Sharon Bautista [facility] Medical 04/22/2020 12:00:00 AM EDT [facility] ([facility]) LESLY TalamantesW-R: [address], [place] [address], Ph. Attender: Sharon Michele [facility] Medical 04/22/2020 12:00:00 AM EDT [place] ([facility]) Sharon Low, DIRECTOR OF RESEARCH AND DEVELOPMENT-R: [address], [place] [address], Ph. Attender: Sharon Bautista [facility] Medical 04/22/2020 12:00:00 AM EDT [place] ([facility]) Chayo Dickerson RPA-C: [address], [address], [place] [address], Ph. Attender: CHAYO DICKERSON [facility] Medical 04/16/2020 12:00:00 AM EST [facility] ([facility]) MADDISON AdamsC: [address], [place] [address], Ph. Attender: CHAYO DICKERSON [facility] Medical 04/16/2020 12:00:00 AM EST [facility] ([facility]) MADDISON AdamsC: [address], [place] [address], Ph. Attender: CHAYO DICKERSON [facility] Medical 04/16/2020 12:00:00 AM EST [place] ([facility]) MADDISON AdamsC: [address], [place] [address], Ph. Attender: CHAYO DICKERSON [facility] Medical 04/16/2020 12:00:00 AM EST [place] ([facility]) MADDISON AdamsC: [address], [place] [address], Ph. Attender: CHAYO DICKERSON [facility] Medical 04/16/2020 12:00:00 AM EST [place] ([facility]) Chayo Dickerson RPA-C: [address], [place] [address], Ph. Attender: CHAYO DICKERSON [facility] Medical 04/16/2020 12:00:00 AM EST [place] ([facility]) Chayo Dickerson RPA-C: [address], [address], [place] [address], Ph. Attender: CHAYO DICKERSON [facility] Medical 04/16/2020 12:00:00 AM EST [place] ([facility]) MADDISON AdamsC: [address], [address], [place] [address], Ph. Attender: CHAYO DICKERSON [facility] Medical 04/16/2020 12:00:00 AM EST [place] ([facility]) MADDISON AdamsC: [address], [address], [place] [address], Ph. Attender: CHAYO DICKERSON [facility] Medical 04/16/2020 12:00:00 AM EST [place] ([facility]) Chayo Dickerson RPA-C: [address], [address], [place] [address], Ph. Attender: CHAYO DICKERSON [facility] Medical 04/16/2020 12:00:00 AM EST [place] ([facility]) Chayo Dickerson RPA-C: [address], [address], [place] [address], Ph. Attender: CHAYO DICKERSON [facility] Medical 04/16/2020 12:00:00 AM EST [place] ([facility]) Chayo Dickerson RPA-C: [address], [address], [place] [address], Ph. Attender: CHAYO DICKERSON [facility] Medical 04/16/2020 12:00:00 AM EST [place] ([facility]) Chayo Dickerson RPA-C: [address], [address], [place] [address], Ph. Attender: CHAYO DICKERSON [facility] Medical 04/16/2020 12:00:00 AM EST [place] ([facility]) Chayo Dickerson RPA-C: [address], [address], [place] [address], Ph. Attender: CHAYO DICKERSON [facility] Medical 04/16/2020 12:00:00 AM EST [place] ([facility]) Chayo Dickerson RPA-C: [address], [address], [place] [address], Ph. Attender: CHAYO DICKERSON [facility] Medical 04/16/2020 12:00:00 AM EST [place] ([facility]) Chayo Dickerson RPA-C: [address], [address], [place] [address], Ph. Attender: CHAYO DICKERSON [facility] Medical 04/16/2020 12:00:00 AM EST [place] ([facility]) Chayo Dickerson RPA-C: [address], [address], [place] [address], Ph. Attender: CHAYO DICKERSON [facility] Medical 04/16/2020 12:00:00 AM EST [place] ([facility]) Chayo Dickerson RPA-C: [address], [place] [address], Ph. Attender: CHAYO DICKERSON [facility] Medical 04/16/2020 12:00:00 AM EST [place] ([facility]) Chayo Dickerson RPA-C: [address], [place] [address], Ph. Attender: CHAYO DICKERSON [facility] Medical 04/16/2020 12:00:00 AM EST [place] ([facility]) Chayo Dickerson RPA-C: [address], [place] [address], Ph. Attender: CHAYO DICKERSON [facility] Medical 04/16/2020 12:00:00 AM EST [place] ([facility]) Chayo Dickerson RPA-C: [address], [address], [place] [address], Ph. Attender: CHAYO DICKERSON [facility] Medical 04/16/2020 12:00:00 AM EST [place] ([facility]) LESLY TalamantesW-R: [address], [place] [address], Ph. Attender: Sharon Bautista [facility] Medical 04/15/2020 12:00:00 AM EST [place] ([facility]) Sharon Low, DIRECTOR OF RESEARCH AND DEVELOPMENT-R: [address], [place] [address], Ph. Attender: Sharon Bautista [facility] Medical 04/15/2020 12:00:00 AM EST [place] ([facility]) SharonLESLY MccartneyW-R: [address], [place] [address], Ph. Attender: Sharon Bautista [facility] Medical 04/15/2020 12:00:00 AM EST [place] ([facility]) LESLY TalamantesW-R: [address], [place] [address], Ph. Attender: Sharon Ayoubgueromarilyalan [facility] Medical 04/15/2020 12:00:00 AM EST [place] ([facility]) LESLY TalamantesW-R: [address], [place] [address], Ph. Attender: Sharon Barahonaalan [facility] Medical 04/15/2020 12:00:00 AM EST [place] ([facility]) LESLY TalamantesW-R: [address], [place] [address], Ph. Attender: Sharon Ayoubdiego [facility] Medical 04/15/2020 12:00:00 AM EST [place] ([facility]) LESLY TalamantesW-R: [address], [place] [address], Ph. Attender: Sharon Bautista [facility] Medical 04/15/2020 12:00:00 AM EST [facility] ([facility]) LESLY TalamantesW-R: [address], [place] [address], Ph. Attender: Sharon Bautista [facility] Medical 04/15/2020 12:00:00 AM EST [facility] ([facility]) Sharon LouiseLESLY saulW-R: [address], [place] [address], Ph. Attender: Sharon Bautista [facility] Medical 04/15/2020 12:00:00 AM EST [facility] ([facility]) Sharon LouiseLESLY saulW-R: [address], [place] [address], Ph. Attender: Sharon Ayoubdiego [facility] Medical 04/15/2020 12:00:00 AM EST [facility] ([facility]) Sharon LouiseLESLY saulW-R: [address], [place] [address], Ph. Attender: Sharon Ayoubgueromarilyalan [facility] Medical 04/15/2020 12:00:00 AM EST [facility] ([facility]) LESLY TalamantesW-R: [address], [place] [address], Ph. Attender: Sharonlouisa Bautista [facility] Medical 04/15/2020 12:00:00 AM EST [place] ([facility]) LESLY TalamantesW-R: [address], [place] [address], Ph. Attender: Sharon Bautista [facility] Medical 04/15/2020 12:00:00 AM EST [place] ([facility]) Sharon LowLESLYW-R: [address], [place] [address], Ph. Attender: Sharon Bautista [facility] Medical 04/15/2020 12:00:00 AM EST [place] ([facility]) Sharon LouiseLESLY saulW-R: [address], [place] [address], Ph. Attender: Sharon Bautista [facility] Medical 04/15/2020 12:00:00 AM EST [place] ([facility]) Sharon LouiseLESLY saulW-R: [address], [place] [address], Ph. Attender: Sharon Jennamarilyalan [facility] Medical 04/15/2020 12:00:00 AM EST [place] ([facility]) Sharon LouiseLESLY saulW-R: [address], [place] [address], Ph. Attender: Sharon Michele [facility] Medical 04/15/2020 12:00:00 AM EST [facility] ([facility]) LESLY TalamantesW-R: [address], [place] [address], Ph. Attender: Sharon Michele [facility] Medical 04/15/2020 12:00:00 AM EST [place] ([facility]) SharonLESLY MccartneyW-R: [address], [place] [address], Ph. Attender: Sharon Bautista [facility] Medical 04/15/2020 12:00:00 AM EST [facility] ([facility]) Sharon Low, DIRECTOR OF RESEARCH AND DEVELOPMENT-R: [address], [place] [address], Ph. Attender: Sharon Ayoubgueromeg [facility] Medical 04/15/2020 12:00:00 AM EST [facility] ([facility]) Sharon Low, DIRECTOR OF RESEARCH AND DEVELOPMENT-R: [address], [place] [address], Ph. Attender: Sharon Jennameg [facility] Medical 04/15/2020 12:00:00 AM EST [facility] ([facility]) Sharon LouiseLESLY saulW-R: [address], [place] [address], Ph. Attender: Sharonlouisa Bautista [facility] Medical 04/15/2020 12:00:00 AM EST [facility] ([facility]) Chayo Dickerson RPA-C: [address], [place] [address], Ph. Attender: CHAYO DICKERSON [facility] Medical 04/02/2020 12:00:00 AM EST [place] ([facility]) Chayo Dickerson RPA-C: [address], [place] [address], Ph. Attender: CHAYO DICKERSON [facility] Medical 04/02/2020 12:00:00 AM EST [place] ([facility]) Chayo Dickerson RPA-C: [address], [place] [address], Ph. Attender: CHAYO DICKERSON [facility] Medical 04/02/2020 12:00:00 AM EST [place] ([facility]) Chayo Dickerson RPA-C: [address], [place] [address], Ph. Attender: CHAYO DICKERSON [facility] Medical 04/02/2020 12:00:00 AM EST [facility] ([facility]) Chayo Dickerson RPA-C: [address], [place] [address], Ph. Attender: CHAYO DICKERSON [facility] Medical 04/02/2020 12:00:00 AM EST [facility] ([facility]) Chayo Dickerson RPA-C: [address], [place] [address], Ph. Attender: CHAYO DICKERSON [facility] Medical 04/02/2020 12:00:00 AM EST [facility] ([facility]) Chayo Dickerson RPA-C: [address], [place] [address], Ph. Attender: CHAYO DICKERSON [facility] Medical 04/02/2020 12:00:00 AM EST [facility] ([facility]) Chayo Dickerson RPA-C: [address], [place] [address], Ph. Attender: CHAYO DICKERSON [facility] Medical 04/02/2020 12:00:00 AM EST [facility] ([facility]) Chayo Dickerson RPA-C: [address], [place] [address], Ph. Attender: CHAYO DICKERSON [facility] Medical 04/02/2020 12:00:00 AM EST [facility] ([facility]) Chayo Dickerson RPA-C: [address], [place] [address], Ph. Attender: CHAYO DICKERSON [facility] Medical 04/02/2020 12:00:00 AM EST [facility] ([facility]) Chayo Dickerson RPA-C: [address], [place] [address], Ph. Attender: CHAYO DICKERSON [facility] Medical 04/02/2020 12:00:00 AM EST [facility] ([facility]) MADDISON AdamsC: [address], [place] [address], Ph. Attender: CHAYO DICKERSON [facility] Medical 04/02/2020 12:00:00 AM EST [facility] ([facility]) Chayo Dickerson RPA-C: [address], [place] [address], Ph. Attender: CHAYO DICKERSON [facility] Medical 04/02/2020 12:00:00 AM EST [facility] ([facility]) Chayo Dickerson RPA-C: [address], [place] [address], Ph. Attender: CHAYO DICKERSON [facility] Medical 04/02/2020 12:00:00 AM EST [facility] ([facility]) Chayo Dickerson RPA-C: [address], [place] [address], Ph. Attender: CHAYO DICKERSON [facility] Medical 04/02/2020 12:00:00 AM EST [facility] ([facility]) MADDISON AdamsC: [address], [place] [address], Ph. Attender: CHAYO DICKERSON [facility] Medical 04/02/2020 12:00:00 AM EST [facility] ([facility]) MADDISON AdamsC: [address], [place] [address], Ph. Attender: CHAYO DICKERSON [facility] Medical 04/02/2020 12:00:00 AM EST [facility] ([facility]) MADDISON AdamsC: [address], [place] [address], Ph. Attender: CHAYO DICKERSON [facility] Medical 04/02/2020 12:00:00 AM EST [facility] ([facility]) MADDISON AdamsC: [address], [place] [address], Ph. Attender: CHAYO DICKERSON [facility] Medical 04/02/2020 12:00:00 AM EST [facility] ([facility]) MADDISON AdamsC: [address], [place] [address], Ph. Attender: CHAYO DICKERSON [facility] Medical 04/02/2020 12:00:00 AM EST [facility] ([facility]) Chayo Dickerson, RPA-C: [address], [place] [address], Ph. Attender: CHAYO DICKERSON [facility] Medical 04/02/2020 12:00:00 AM EST HILDA ([facility]) Chayo Dickerson RPA-C: [address], [place] [address], Ph. Attender: CHAYO DICKRESON [facility] Medical 04/02/2020 12:00:00 AM EST HILDA ([facility]) Chayo Dickerson RPA-C: [address], [place] [address], Ph. Attender: CHAYO DICKERSON [facility] Medical 04/02/2020 12:00:00 AM EST HILDA ([facility]) Merleneamrie Sadler, [facility]: [address], [place] [address], Ph. Attender: Merlenemarie Sadler [facility] Medical 03/05/2020 12:00:00 AM EST HILDA ([facility]) Merlene Sadler [facility]: [address], [place] [address], Ph. Attender: Merlene Sadler [facility] Medical 03/05/2020 12:00:00 AM EST HILDA ([facility]) Merlene Sadler [facility]: [address], [place] [address], Ph. Attender: Merlene Sadler [facility] Medical 03/05/2020 12:00:00 AM EST HILDA ([facility]) Merlene Sadler [facility]: [address], [place] [address], Ph. Attender: Merlene Sadler [facility] Medical 03/05/2020 12:00:00 AM EST HILDA ([facility]) Merlene Sadler, [employer]: [address], [place] [address], Ph. Attender: Merlene Sadler [facility] Medical 03/05/2020 12:00:00 AM EST HILDA ([facility]) Merlene Sadler [facility]: [address], [place] [address], Ph. Attender: Merlene Sadler [facility] Medical 03/05/2020 12:00:00 AM EST HILDA ([facility]) Merlene Sadler, [facility]: [address], [place], [place] [address], Ph. Attender: Merlene Sadler [facility] Medical 03/05/2020 12:00:00 AM EST HILDA ([facility]) Merlene Sadler [facility]: [address], [place] [address], Ph. Attender: Merlene Sadler [facility] Medical 03/05/2020 12:00:00 AM EST HILDA ([facility]) Merlene Sadler [facility]: [address], [place] [address], Ph. Attender: Merlene Sadler [facility] Medical 03/05/2020 12:00:00 AM EST HILDA ([facility]) Merlene Sadler, [employer]: [address], [place] [address], Ph. Attender: Merlene Sadler [facility] Medical 03/05/2020 12:00:00 AM EST HILDA ([facility]) Merlene Sadler, [employer]: [address], [place] [address], Ph. Attender: Merlene Sadler [facility] Medical 03/05/2020 12:00:00 AM EST HILDA ([facility]) Merlene Sadler, [facility]: [address], [place] [address], Ph. Attender: Merlene Sadler [facility] Medical 03/05/2020 12:00:00 AM EST HILDA ([facility]) Merlene Sadler, [facility]: [address], [place] [address], Ph. Attender: Merlene Sadler [facility] Medical 03/05/2020 12:00:00 AM EST HILDA ([facility]) Merlene Sadler, [employer]: [address], [place] [address], Ph. Attender: Merlene Sadler [facility] Medical 03/05/2020 12:00:00 AM EST HILDA ([facility]) Merlene Sadler, [facility]: [address], [place] [address], Ph. Attender: Merlene Sadler [facility] Medical 03/05/2020 12:00:00 AM EST HILDA ([facility]) Merlene Sadler, [employer]: [address], [place] [address], Ph. Attender: Merlene Sadler [facility] Medical 03/05/2020 12:00:00 AM EST HILDA ([facility]) Melrene Sadler, [employer]: [address], [place] [address], Ph. Attender: Merlene Sadler [facility] Medical 03/05/2020 12:00:00 AM EST HILDA ([facility]) Merlene Sadler, [employer]: [address], [place] [address], Ph. Attender: Merlene Sadler [facility] Medical 03/05/2020 12:00:00 AM EST HILDA ([facility]) Merlene Sadler, [employer]: [address], [place] [address], Ph. Attender: Merlene Sadler [facility] Medical 03/05/2020 12:00:00 AM EST [facility]IL[facility] ([facility]) Merlene Sadler, [employer]: [address], [place] [address], Ph. Attender: Merlene Sadler [facility] Medical 03/05/2020 12:00:00 AM EST HILDA ([facility]) Merlene Sadler, [employer]: [address], [place] [address], Ph. Attender: Merlene Sadler [facility] Medical 03/05/2020 12:00:00 AM EST [facility]IL[facility] ([facility]) Merlene Sadler, [employer]: [address], [place] [address], Ph. Attender: Merlene Sadler [facility] Medical 03/05/2020 12:00:00 AM EST [facility] ([facility]) Merlene Sadler, [employer]: [address], [place] [address], Ph. Attender: Merlene Sadler [facility] Medical 03/05/2020 12:00:00 AM EST [facility]IL[facility] ([facility]) Merlene Sadler, [employer]: [address], [place] [address], Ph. Attender: Merlene Sadler [facility] Medical 03/05/2020 12:00:00 AM EST [facility] ([facility]) Merlene Sadler [employer]: [address], [place] [address], Ph. Attender: Merlene Sadler [facility] Medical 02/20/2020 12:00:00 AM EST [facility]IL[facility] ([facility]) Merlene Sadler, [employer]: [address], [place] [address], Ph. Attender: Merlene Sadler [facility] Medical 02/20/2020 12:00:00 AM EST [facility]IL[facility] ([facility]) Merlene Sadler [employer]: [address], [place] [address], Ph. Attender: Merlene Sadler [facility] Medical 02/20/2020 12:00:00 AM EST [facility]IL[facility] ([facility]) Merlene Sadler, [employer]: [address], [place] [address], Ph. Attender: Merlene Sadler [facility] Medical 02/20/2020 12:00:00 AM EST [facility]IL[facility] ([facility]) Merlene Sadler, [employer]: [address], [place] [address], Ph. Attender: Merlene Sadler [facility] Medical 02/20/2020 12:00:00 AM EST [facility] ([facility]) Merlene Sadler, [employer]: [address], [place] [address], Ph. Attender: Merlene Sadler [facility] Medical 02/20/2020 12:00:00 AM EST [facility] ([facility]) Merlene Sadler, [employer]: [address], [place] [address], Ph. Attender: Merlene Sadler [facility] Medical 02/20/2020 12:00:00 AM EST [facility] ([facility]) Merlene Sadler, [employer]: [address], [place] [address], Ph. Attender: Merlene Sadler [facility] Medical 02/20/2020 12:00:00 AM EST [facility] ([facility]) Merlene Sadler, [employer]: [address], [place] [address], Ph. Attender: Merlene Sadler [facility] Medical 02/20/2020 12:00:00 AM EST HILDA ([facility]) Merlene Sadler, [employer]: [address], [place] [address], Ph. Attender: Merlene Sadler [facility] Medical 02/20/2020 12:00:00 AM EST HILDA ([facility]) Merlene Sadler, [facility]: [address], [place] [address], Ph. Attender: Merlene Sadler [facility] Medical 02/20/2020 12:00:00 AM EST HILDA ([facility]) Merlene Sadler, [employer]: [address], [place] [address], Ph. Attender: Merlene Sadler [facility] Medical 02/20/2020 12:00:00 AM EST HILDA ([facility]) Merlene Sadler, [facility]: [address], [place] [address], Ph. Attender: Merlene Sadler [facility] Medical 02/20/2020 12:00:00 AM EST HILDA ([facility]) Merlene Sadler, [facility]: [address], [place] [address], Ph. Attender: Merlene Sadler [facility] Medical 02/20/2020 12:00:00 AM EST HILDA ([facility]) Merlene Sadler, [facility]: [address], [place] [address], Ph. Attender: Merlene Sadler [facility] Medical 02/20/2020 12:00:00 AM EST HILDA ([facility]) Merlene Sadler, [employer]: [address], [place] [address], Ph. Attender: Merlene Sadler [facility] Medical 02/20/2020 12:00:00 AM EST HILDA ([facility]) Merlene Sadler [employer]: [address], [place] [address], Ph. Attender: Merlene Sadler [facility] Medical 02/20/2020 12:00:00 AM EST HILDA ([facility]) Merlene Sadler, [employer]: [address], [place] [address], Ph. Attender: Merlene Sadler [facility] Medical 02/20/2020 12:00:00 AM EST HILDA ([facility]) Merlene Sadler [employer]: [address], [place] [address], Ph. Attender: Merlene Sadler [facility] Medical 02/20/2020 12:00:00 AM EST HILDA ([facility]) Merlene Sadler, [employer]: [address], [place] [address], Ph. Attender: Merlene Sadler [facility] Medical 02/20/2020 12:00:00 AM EST HILDA ([facility]) Merlene Sadler, [employer]: [address], [place] [address], Ph. Attender: Merlene Sadler [facility] Medical 02/20/2020 12:00:00 AM EST HILDA ([facility]) Merlene Sadler, [employer]: [address], [place] [address], Ph. Attender: Merlene Sadler [facility] Medical 02/20/2020 12:00:00 AM EST HILDA ([facility]) Merlene Sadler, [employer]: [address], [place] [address], Ph. Attender: Merlene Sadler [facility] Medical 02/20/2020 12:00:00 AM EST HILDA ([facility]) Merlene Sadler, [employer]: [address], [place] [address], Ph. Attender: Merlene Sadler [facility] Medical 02/20/2020 12:00:00 AM EST HILDA ([facility]) Merlene Sadler, [employer]: [address], [place] [address], Ph. Attender: Merlene Sadler [facility] Medical 02/20/2020 12:00:00 AM EST HILDA ([facility]) Terry Quiroga [facility]: [address], [place] [address], Ph. Attender: TERRY QUIROGA RPA-C [facility] Medical 02/02/2020 12:00:00 AM EST HILDA ([facility]) Merlene Sadler, [employer]: [address], [place] [address], Ph. Attender: Merlene Sadler [facility] Medical 02/02/2020 12:00:00 AM EST HILDA ([facility]) Terry Quiroga [facility]: [address], [place] [address], Ph. Attender: TERRY QUIROGA RPA-C [facility] Medical 02/02/2020 12:00:00 AM EST HILDA ([facility]) Merlene Sadler, [employer]: [address], [place] [address], Ph. Attender: Merlene Sadler [facility] Medical 02/02/2020 12:00:00 AM EST HILDA ([facility]) Terry Quiroga [facility]: [address], [place] [address], Ph. Attender: TERRY QUIROGA RPA-C [facility] Medical 02/02/2020 12:00:00 AM EST HILDA ([facility]) Merlene Sadler, [employer]: [address], [place] [address], Ph. Attender: Merlene Sadler [facility] Medical 02/02/2020 12:00:00 AM EST [facility]ILDA ([facility]) Terry Quiroga [facility]: [address], [place] [address], Ph. Attender: TERRY QUIROGA RPA-C [facility] Medical 02/02/2020 12:00:00 AM EST HILDA ([facility]) Merlene Sadler, [employer]: [address], [place] [address], Ph. Attender: Merlene Sadler [facility] Medical 02/02/2020 12:00:00 AM EST [facility]ILDA ([facility]) Terry Quiroga [facility]: [address], [place] [address], Ph. Attender: TERRY QUIROGA RPA-C [facility] Medical 02/02/2020 12:00:00 AM EST HILDA ([facility]) Merlene Sadler, [employer]: [address], [place] [address], Ph. Attender: Merlene Sadler [facility] Medical 02/02/2020 12:00:00 AM EST [facility]ILDA ([facility]) Terry Quiroga [facility]: [address], [place] [address], Ph. Attender: TERRY QUIROGA RPA-C [facility] Medical 02/02/2020 12:00:00 AM EST HILDA ([facility]) Merlene Sadler, [facility]: [address], [place] [address], Ph. Attender: Merlene Sadler [facility] Medical 02/02/2020 12:00:00 AM EST HILDA ([facility]) Terry Quiroga [facility]: [address], [place] [address], Ph. Attender: TERRY QUIROGA RPA-C [facility] Medical 02/02/2020 12:00:00 AM EST HILDA ([facility]) Merlene Sadler, [facility]: [address], [place] [address], Ph. Attender: Merlene Sadler [facility] Medical 02/02/2020 12:00:00 AM EST [facility]ILDA ([facility]) Terry Quiroga [facility]: [address], [place] [address], Ph. Attender: TERRY QUIROGA RPA-C [facility] Medical 02/02/2020 12:00:00 AM EST HILDA ([facility]) Merlene Sadler, [facility]: [address], [place] [address], Ph. Attender: Merlene Sadler [facility] Medical 02/02/2020 12:00:00 AM EST [facility]IL[facility] ([facility]) Terry Quiroga [facility]: [address], [place] [address], Ph. Attender: TERRY QUIROGA RPA-C [facility] Medical 02/02/2020 12:00:00 AM EST HILDA ([facility]) Merlene Sadler, [facility]: [address], [place] [address], Ph. Attender: Merlene Sadler [facility] Medical 02/02/2020 12:00:00 AM EST HILDA ([facility]) Terry Quiroga R[facility]: [address], [place] [address], Ph. Attender: TERRY WASHBURNC [facility] Medical 02/02/2020 12:00:00 AM EST HILDA ([facility]) Merlene Sadler, [facility]: [address], [place] [address], Ph. Attender: Merlene Sadler [facility] Medical 02/02/2020 12:00:00 AM EST HILDA ([facility]) Terry Quiroga [facility]: [address], [place] [address], Ph. Attender: TERRY QUIROGA RPA-C [facility] Medical 02/02/2020 12:00:00 AM EST HILDA ([facility]) Merlene Sadler, [employer]: [address], [place] [address], Ph. Attender: Merlene Sadler [facility] Medical 02/02/2020 12:00:00 AM EST [facility]ILDA ([facility]) Terry Quiroga [facility]: [address], [place] [address], Ph. Attender: TERRY QUIROGA RPA-C [facility] Medical 02/02/2020 12:00:00 AM EST HILDA ([facility]) Merlene Sadler, [facility]: [address], [place] [address], Ph. Attender: Merlene Sadler [facility] Medical 02/02/2020 12:00:00 AM EST HILDA ([facility]) Terry Quiroga RPA[facility]: [address], [place] [address], Ph. Attender: TERRY QUIROGA RPA-C [facility] Medical 02/02/2020 12:00:00 AM EST HILDA ([facility]) Merlene Sadler, [employer]: [address], [place] [address], Ph. Attender: Merlene Sadler [facility] Medical 02/02/2020 12:00:00 AM EST HILDA ([facility]) Terry Quiroga RPA[facility]C: [address], [place] [address], Ph. Attender: TERRY QUIROGA RPA-C [facility] Medical 02/02/2020 12:00:00 AM EST HILDA ([facility]) Merlene Sadler, [facility]: [address], [place] [address], Ph. Attender: Merlene Sadler [facility] Medical 02/02/2020 12:00:00 AM EST [facility]ILDA ([facility]) Terry Quiroga RPA-C: [address], [place] [address], Ph. Attender: TERRY WASHBURNC [facility] Medical 02/02/2020 12:00:00 AM EST HILDA ([facility]) Merlene Sadler [facility]: [address], [place] [address], Ph. Attender: Merlene Sadler [facility] Medical 02/02/2020 12:00:00 AM EST [facility] ([facility]) Terry Quiroga RPA[facility]C: [address], [place] [address], Ph. Attender: TERRY WASHBURNC [facility] Medical 02/02/2020 12:00:00 AM EST HILDA ([facility]) Merlene Sadler, [facility]: [address], [place] [address], Ph. Attender: Merlene Sadler [facility] Medical 02/02/2020 12:00:00 AM EST [facility] ([facility]) Terry Quiroga RPA-C: [address], [place] [address], Ph. Attender: TERRY QUIROGA RPA-C [facility] Medical 02/02/2020 12:00:00 AM EST HILDA ([facility]) Merlene Sadler, [employer]: [address], [place] [address], Ph. Attender: Merlene Sadler [facility] Medical 02/02/2020 12:00:00 AM EST [facility] ([facility]) Terry Quiroga RPA-C: [address], [place] [address], Ph. Attender: TERRY QUIROGA RPA-C [facility] Medical 02/02/2020 12:00:00 AM EST HILDA ([facility]) Merlene Sadler, [facility]: [address], [place] [address], Ph. Attender: Merlene Sadler [facility] Medical 02/02/2020 12:00:00 AM EST [facility] ([facility]) Terry Quiroga RPA-C: [address], [place] [address], Ph. Attender: TERRY QUIROGA RPA-C [facility] Medical 02/02/2020 12:00:00 AM EST HILDA ([facility]) Merlene Sadler, [employer]: [address], [place] [address], Ph. Attender: Merlene Sadler [facility] Medical 02/02/2020 12:00:00 AM EST [facility] ([facility]) Terry Quiroga RPA-C: [address], [place] [address], Ph. Attender: TERRY QUIROGA RPA-C [facility] Medical 02/02/2020 12:00:00 AM EST [facility]ILDA ([facility]) Merlene aSdler, [employer]: [address], [place] [address], Ph. Attender: Merlene Sadler [facility] Medical 02/02/2020 12:00:00 AM EST [facility] ([facility]) Terry Quiroga RPA[facility]C: [address], [place] [address], Ph. Attender: TERRY QUIROGA RPA-C [facility] Medical 02/02/2020 12:00:00 AM EST HILDA ([facility]) Merlene Sadler [facility]: [address], [place] [address], Ph. Attender: Merlene Sadler [facility] Medical 02/02/2020 12:00:00 AM EST [facility] ([facility]) Terry Quiroga RPA-C: [address], [place] [address], Ph. Attender: TERRY QUIROGA RPA-C [facility] Medical 02/02/2020 12:00:00 AM EST HILDA ([facility]) Merlene Sadler, [facility]: [address], [place] [address], Ph. Attender: Merlene Sadler [facility] Medical 02/02/2020 12:00:00 AM EST [facility] ([facility]) Terry Quiroga RPA-C: [address], [place] [address], Ph. Attender: TERRY QUIROGA RPA-C [facility] Medical 02/02/2020 12:00:00 AM EST HILDA ([facility]) Merlene Sadler, [employer]: [address], [place] [address], Ph. Attender: Merlene Sadler [facility] Medical 02/02/2020 12:00:00 AM EST [facility] ([facility]) Terry Quiroga RPA-C: [address], [place] [address], Ph. Attender: TERRY QUIROGA RPA-C [facility] Medical 02/02/2020 12:00:00 AM EST HILDA ([facility]) Merlene Sadler, [facility]: [address], [place] [address], Ph. Attender: Merlene Sadler [facility] Medical 02/02/2020 12:00:00 AM EST HILDA ([facility]) Terry Quiroga RPA-C: [address], [place] [address], Ph. Attender: TERRY QUIROGA RPA-C [facility] Medical 02/02/2020 12:00:00 AM EST HILDA ([facility]) Merlene Sadler, [employer]: [address], [place] [address], Ph. Attender: Merlene Sadler [facility] Medical 02/02/2020 12:00:00 AM EST HILDA ([facility]) Terry Quiroga RPA-C: [address], [place] [address], Ph. Attender: TERRY QUIROGA RPA-C [facility] Medical 02/02/2020 12:00:00 AM EST HILDA ([facility]) Merlene Sadler, [employer]: [address], [place] [address], Ph. Attender: Merlene Sadler [facility] Medical 02/02/2020 12:00:00 AM EST HILDA ([facility]) Terry Quiroga, RPA-C: [address], [place] [address], Ph. Attender: TERRY QUIROGA RPA-C [facility] Medical 02/02/2020 12:00:00 AM EST HILDA ([facility]) Merlene Sadler, [facility]: [address], [place] [address], Ph. Attender: Merlene Sadler [facility] Medical 02/02/2020 12:00:00 AM EST HILDA ([facility]) Merlene Sadler, [employer]: [address], [place] [address], Ph. Attender: Merlene Sadler [facility] Medical 01/28/2020 12:00:00 AM EST [facility] ([facility]) Merlene Sadler, [employer] SALESPERSON: [address], [place] [address], Ph. Attender: Merlene Sadler [facility] Medical 01/28/2020 12:00:00 AM EST [facility] ([facility]) Merlene Sadler, [employer] DES[employer] SALESPERSON: [address], [place] [address], Ph. Attender: Merlene Sadler [facility] Medical 01/28/2020 12:00:00 AM EST [facility] ([facility]) Merlene Sadler, [employer] DES[employer] SALESPERSON: [address], [place] [address], Ph. Attender: Merlene Sadler [facility] Medical 01/28/2020 12:00:00 AM EST [facility] ([facility]) Merlene Sadler, [employer] DES[employer]ER SALESPERSON: [address], [place] [address], Ph. Attender: Merlene Sadler [facility] Medical 01/28/2020 12:00:00 AM EST [facility] ([facility]) Merlene Sadler, [employer] DES[employer]ER SALESPERSON: [address], [place] [address], Ph. Attender: Merlene Sadler [facility] Medical 01/28/2020 12:00:00 AM EST [facility] ([facility]) Merlene Sadler, [employer] DES[employer]ER SALESPERSON: [address], [place] [address], Ph. Attender: Merlene Sadler [facility] Medical 01/28/2020 12:00:00 AM EST [facility] ([facility]) Merlene Sadler, [employer] DESIGNER SALESPERSON: [address], [place] [address], Ph. Attender: Merlene Sadler [facility] Medical 01/28/2020 12:00:00 AM EST [facility] ([facility]) Merlene Sadler, [employer]OR[employer] DESIGNER SALESPERSON: [address], [place] [address], Ph. Attender: Merlene Sadler [facility] Medical 01/28/2020 12:00:00 AM EST [facility] ([facility]) Merlene Sadler [facility]: [address], [place] [address], Ph. Attender: Merlene Sadler [facility] Medical 01/28/2020 12:00:00 AM EST [facility] ([facility]) Merlene Sadler, [facility]: [address], [place] [address], Ph. Attender: Merlene Sadler [facility] Medical 01/28/2020 12:00:00 AM EST [facility] ([facility]) Merlene Sadler, [facility]: [address], [place] [address], Ph. Attender: Merlene Sadler [facility] Medical 01/28/2020 12:00:00 AM EST [facility] ([facility]) Merlene Sadler, [facility]: [address], [place] [address], Ph. Attender: Merlene Sadler [facility] Medical 01/28/2020 12:00:00 AM EST [facility] ([facility]) Merlene Sadler, [facility]: [address], [place] [address], Ph. Attender: Merlene Sadler [facility] Medical 01/28/2020 12:00:00 AM EST [facility] ([facility]) Merlene Sadler, [facility]: [address], [place] [address], Ph. Attender: Merlene Sadler [facility] Medical 01/28/2020 12:00:00 AM EST [facility] ([facility]) Merlene Sadler, [facility]: [address], [place] [address], Ph. Attender: Merlene Sadler [facility] Medical 01/28/2020 12:00:00 AM EST [facility] ([facility]) Merlene Sadler, [employer]ER SALESPERSON: [address], [place] [address], Ph. Attender: Merlene Sadler [facility] Medical 01/28/2020 12:00:00 AM EST [facility] ([facility]) Merlene Sadler, [employer] DES[employer]ER SALESPERSON: [address], [place] [address], Ph. Attender: Merlene Sadler [facility] Medical 01/28/2020 12:00:00 AM EST [facility] ([facility]) Merlene Sadler, [facility]: [address], [place] [address], Ph. Attender: Merlene Sadler [facility] Medical 01/28/2020 12:00:00 AM EST [facility] ([facility]) Merlene Sadler, [facility]: [address], [place] [address], Ph. Attender: Merlene Sadler [facility] Medical 01/28/2020 12:00:00 AM EST [facility] ([facility]) Merlene Sadler, [facility]: [address], [place] [address], Ph. Attender: Merlene Sadler [facility] Medical 01/28/2020 12:00:00 AM EST [facility] ([facility]) Merlene Sadler, [employer] DES[employer]ER SALESPERSON: [address], [place] [address], Ph. Attender: Merlene Sadler [facility] Medical 01/28/2020 12:00:00 AM EST [facility] ([facility]) Merlene Sadler, [employer] DES[employer]ER SALESPERSON: [address], [place] [address], Ph. Attender: Merlene Sadler [facility] Medical 01/28/2020 12:00:00 AM EST [facility] ([facility]) Merlene Sadler [employer] SALESPERSON: [address], [place] [address], Ph. Attender: Merlene Sadler [facility] Medical 01/28/2020 12:00:00 AM EST [facility] ([facility]) Merlene Sadler, FLOR[employer] DESIGNER SALESPERSON: [address], [place] [address], Ph. Attender: Merlene Sadler [facility] Medical 01/28/2020 12:00:00 AM EST [facility] ([facility]) Merlene Sadler [employer]OR[employer] DES[employer]ER SALESPERSON: [address], [place] [address], Ph. Attender: Merlene Sadler [facility] Medical 01/28/2020 12:00:00 AM EST [facility] ([facility]) Merlene Sadler [employer] DES[employer]ER SALESPERSON: [address], [place] [address], Ph. Attender: Merlene Sadler [facility] Medical 01/28/2020 12:00:00 AM EST [facility] ([facility]) Merlene Sadler, [employer]OR[employer] DESIGNER SALESPERSON: [address], [place] [address], Ph. Attender: Merlene Sadler [facility] Medical 01/28/2020 12:00:00 AM EST [facility] ([facility]) Merlene Sadler, [employer]OR[employer] DESIGNER SALESPERSON: [address], [place] [address], Ph. Attender: Merlene Sadler [facility] Medical 01/20/2020 12:00:00 AM EST [facility] ([facility]) Merlene Sadler, [facility]: [address], [place] [address], Ph. Attender: Merlene Sadler [facility] Medical 01/20/2020 12:00:00 AM EST [facility] ([facility]) Merlene Sadler, [facility]: [address], [place] [address], Ph. Attender: Merlene Sadler [facility] Medical 01/20/2020 12:00:00 AM EST [facility] ([facility]) Merlene Sadler, [facility]: [address], [place] [address], Ph. Attender: Merlene Sadler [facility] Medical 01/20/2020 12:00:00 AM EST [facility] ([facility]) Merlene Sadler, [employer] DES[employer]ER SALESPERSON: [address], [place] [address], Ph. Attender: Merlene Sadler [facility] Medical 01/20/2020 12:00:00 AM EST [facility] ([facility]) Merlene Sadler, FLOR[employer] DESIGNER SALESPERSON: [address], [place] [address], Ph. Attender: Merlene Sadler [facility] Medical 01/20/2020 12:00:00 AM EST [facility] ([facility]) Merlene Sadler, FLOR[employer] DESIGNER SALESPERSON: [address], [place] [address], Ph. Attender: Merlene Sadler [facility] Medical 01/20/2020 12:00:00 AM EST [facility] ([facility]) Merlene Sadler, FLOR[employer] DESIGNER SALESPERSON: [address], [place] [address], Ph. Attender: Merlene Sadler [facility] Medical 01/20/2020 12:00:00 AM EST [facility] ([facility]) Merlene Sadler, [employer]OR[employer] DESIGNER SALESPERSON: [address], [place] [address], Ph. Attender: Merlene Sadler [facility] Medical 01/20/2020 12:00:00 AM EST [facility] ([facility]) Merlene Sadler, FLOR[employer] DESIGNER SALESPERSON: [address], [place] [address], Ph. Attender: Merlene Sadler [facility] Medical 01/20/2020 12:00:00 AM EST [facility] ([facility]) Merlene Sadler, FLOR[employer] DESIGNER SALESPERSON: [address], [place] [address], Ph. Attender: Merlene Sadler [facility] Medical 01/20/2020 12:00:00 AM EST [facility] ([facility]) Merlene Sadler, FLOR[employer] DESIGNER SALESPERSON: [address], [place] [address], Ph. Attender: Merlene Sadler [facility] Medical 01/20/2020 12:00:00 AM EST [facility] ([facility]) Merlene Sadler, [facility]: [address], [place] [address], Ph. Attender: Merlene Sadler [facility] Medical 01/20/2020 12:00:00 AM EST [facility] ([facility]) Merlene Sadler, FLOR[employer] DESIGNER SALESPERSON: [address], [place] [address], Ph. Attender: Merlene Sadler [facility] Medical 01/20/2020 12:00:00 AM EST [facility] ([facility]) Merlene Sadler, [facility]: [address], [place] [address], Ph. Attender: Merlene Sadler [facility] Medical 01/20/2020 12:00:00 AM EST [facility] ([facility]) Merlene Sadler, [facility]: [address], [place] [address], Ph. Attender: Merlene Sadler [facility] Medical 01/20/2020 12:00:00 AM EST [facility] ([facility]) Merlene Sadler, [facility]: [address], [place] [address], Ph. Attender: Merlene Sadler [facility] Medical 01/20/2020 12:00:00 AM EST [facility] ([facility]) Merlene Sadler, [facility]: [address], [place] [address], Ph. Attender: Merlene Sadler [facility] Medical 01/20/2020 12:00:00 AM EST [facility] ([facility]) Merlene Sadler [employer] DES[employer]ER SALESPERSON: [address], [place] [address], Ph. Attender: Merlene Sadler [facility] Medical 01/20/2020 12:00:00 AM EST [facility] ([facility]) Merlene Sadler, [employer]OR[employer] DESIGNER SALESPERSON: [address], [place] [address], Ph. Attender: Merlene Sadler [facility] Medical 01/20/2020 12:00:00 AM EST [facility] ([facility]) Merlene Sadler FLOR[employer] DESIGNER SALESPERSON: [address], [place] [address], Ph. Attender: Merlene Sadler [facility] Medical 01/20/2020 12:00:00 AM EST [facility] ([facility]) Merlene Sadler, FL[employer] DESIGNER SALESPERSON: [address], [place] [address], Ph. Attender: Merlene Sadler [facility] Medical 01/20/2020 12:00:00 AM EST [facility] ([facility]) Merlene Sadler, FLOR[employer] DESIGNER SALESPERSON: [address], [place] [address], Ph. Attender: Merlene Sadler [facility] Medical 01/20/2020 12:00:00 AM EST [facility] ([facility]) Merlene Sadler, FLOR[employer] DESIGNER SALESPERSON: [address], [place] [address], Ph. Attender: Merlene Sadler [facility] Medical 01/20/2020 12:00:00 AM EST [facility] ([facility]) Merlene Sadler, [facility]: [address], [place] [address], Ph. Attender: Merlene Sadler [facility] Medical 01/20/2020 12:00:00 AM EST [facility] ([facility]) Merlene Sadler, [employer] DESIGNER SALESPERSON: [address], [place] [address], Ph. Attender: Merlene Sadler [facility] Medical 01/20/2020 12:00:00 AM EST [facility] ([facility]) Merlene Sadler, [employer] DES[employer]ER SALESPERSON: [address], [place] [address], Ph. Attender: Merlene Sadler [facility] Medical 01/20/2020 12:00:00 AM EST [facility] ([facility]) Merlene Sadler, [facility]: [address], [place] [address], Ph. Attender: Merlene Sadler [facility] Medical 01/20/2020 12:00:00 AM EST [facility] ([facility]) Merlene Sadler [facility]: [address], [place] [address], Ph. Attender: Merlene Sadler [facility] Medical 01/20/2020 12:00:00 AM EST [facility] ([facility]) Merlene Sadler, [facility]: [address], [place] [address], Ph. Attender: Merlene Sadler [facility] Medical 01/16/2020 12:00:00 AM EST [facility] ([facility]) Merlene Sadler, [facility]: [address], [place] [address], Ph. Attender: Merlene Sadler [facility] Medical 01/16/2020 12:00:00 AM EST [facility] ([facility]) Merlene Sadler, [employer] SALESPERSON: [address], [place] [address], Ph. Attender: Merlene Sadler [facility] Medical 01/16/2020 12:00:00 AM EST [facility] ([facility]) Merlene Sadler, [employer] DES[employer] SALESPERSON: [address], [place] [address], Ph. Attender: Merlene Sadler [facility] Medical 01/16/2020 12:00:00 AM EST [facility] ([facility]) Merlene Sadler, [employer] SALESPERSON: [address], [place] [address], Ph. Attender: Merlene Sadler [facility] Medical 01/16/2020 12:00:00 AM EST [facility] ([facility]) Merlene Sadler, [employer] DES[employer]ER SALESPERSON: [address], [place] [address], Ph. Attender: Merlene Sadler [facility] Medical 01/16/2020 12:00:00 AM EST [facility] ([facility]) Merlene Sadler, [employer]ER SALESPERSON: [address], [place] [address], Ph. Attender: Merlene Sadler [facility] Medical 01/16/2020 12:00:00 AM EST [facility] ([facility]) Merlene Sadler, [employer] SALESPERSON: [address], [place] [address], Ph. Attender: Merlene Sadler [facility] Medical 01/16/2020 12:00:00 AM EST [facility] ([facility]) Merlene Sadler, [employer] SALESPERSON: [address], [place] [address], Ph. Attender: Merlene Sadler [facility] Medical 01/16/2020 12:00:00 AM EST [facility] ([facility]) Merlene Sadler, [employer] SALESPERSON: [address], [place] [address], Ph. Attender: Merlene Sadler [facility] Medical 01/16/2020 12:00:00 AM EST [facility] ([facility]) Merlene Sadler, [employer] SALESPERSON: [address], [place] [address], Ph. Attender: Merlene Sadler [facility] Medical 01/16/2020 12:00:00 AM EST [facility] ([facility]) Merlene Sadler, [employer] SALESPERSON: [address], [place] [address], Ph. Attender: Merlene Sadler [facility] Medical 01/16/2020 12:00:00 AM EST [facility] ([facility]) Merlene Sadler, [employer] SALESPERSON: [address], [place] [address], Ph. Attender: Merlene Sadler [facility] Medical 01/16/2020 12:00:00 AM EST [facility] ([facility]) Merlene Sadler, [employer] SALESPERSON: [address], [place] [address], Ph. Attender: Merlene Sadler [facility] Medical 01/16/2020 12:00:00 AM EST [facility] ([facility]) Merlene Sadler, [employer] SALESPERSON: [address], [place] [address], Ph. Attender: Merlene Sadler [facility] Medical 01/16/2020 12:00:00 AM EST [facility] ([facility]) Merlene Sadler, [employer] SALESPERSON: [address], [place] [address], Ph. Attender: Merlene Sadler [facility] Medical 01/16/2020 12:00:00 AM EST [facility] ([facility]) Merlene Sadler [employer] SALESPERSON: [address], [place] [address], Ph. Attender: Merlene Sadler [facility] Medical 01/16/2020 12:00:00 AM EST [facility] ([facility]) Merlene Sadler, [employer] SALESPERSON: [address], [place] [address], Ph. Attender: Merlene Sadler [facility] Medical 01/16/2020 12:00:00 AM EST [facility] ([facility]) Merlene Sadler, [employer] SAL[employer]ERSON: [address], [place] [address], Ph. Attender: Merlene Sadler [facility] Medical 01/16/2020 12:00:00 AM EST [facility] ([facility]) Merlene Sadler, [employer] SAL[employer]ERSON: [address], [place] [address], Ph. Attender: Merlene Sadler [facility] Medical 01/16/2020 12:00:00 AM EST [facility] ([facility]) Merlene Sadler, [facility]: [address], [place] [address], Ph. Attender: Merlene Sadler [facility] Medical 01/16/2020 12:00:00 AM EST [facility] ([facility]) Merlene Sadler, [employer] SAL[employer]ERSON: [address], [place] [address], Ph. Attender: Merlene Sadler [facility] Medical 01/16/2020 12:00:00 AM EST [facility] ([facility]) Merlene Sadler, [facility]: [address], [place] [address], Ph. Attender: Merlene Sadler [facility] Medical 01/16/2020 12:00:00 AM EST [facility] ([facility]) Merlene Sadler, [facility]: [address], [place] [address], Ph. Attender: Merlene Sadler [facility] Medical 01/16/2020 12:00:00 AM EST [facility] ([facility]) Merlene Sadler, [facility]: [address], [place] [address], Ph. Attender: Merlene Sadler [facility] Medical 01/16/2020 12:00:00 AM EST [facility] ([facility]) Merlene Sadler, [facility]: [address], [place] [address], Ph. Attender: Merlene Sadler [facility] Medical 01/16/2020 12:00:00 AM EST [facility] ([facility]) Merlene Sadler, [employer]: [address], [place] [address], Ph. Attender: Merlene Sadler [facility] Medical 01/16/2020 12:00:00 AM EST [facility] ([facility]) Merlene Sadler, [employer] SAL[employer]ERSON: [address], [place] [address], Ph. Attender: Merlene Sadler [facility] Medical 01/16/2020 12:00:00 AM EST HILDA ([facility]) Merlene Sadler, FLOR[employer] DESIGNER SALESPERSON: [address], [place] [address], Ph. Attender: Merlene Sadler [facility] Medical 01/16/2020 12:00:00 AM EST HILDA ([facility]) Merlene Sadler, FLOR[employer] DESIGNER SALESPERSON: [address], [place] [address], Ph. Attender: Merlene Sadler [facility] Medical 01/16/2020 12:00:00 AM EST HILDA ([facility]) Merlene Sadler, FLOR[employer] DESIGNER SALESPERSON: [address], [place] [address], Ph. Attender: Merlene Sadler [facility] Medical 01/08/2020 12:00:00 AM EST HILDA ([facility]) Merlene Sadler, FLOR[employer] DESIGNER SALESPERSON: [address], [place] [address], Ph. Attender: Merlene Sadler [facility] Medical 01/08/2020 12:00:00 AM EST HILDA ([facility]) Merlene Sadler, [facility]: [address], [place] [address], Ph. Attender: Merlene Sadler [facility] [facility] Medical 01/08/2020 12:00:00 AM EST HILDA ([facility]) Merlene Sadler, [employer] SALESPERSON: [address], [place] [address], Ph. Attender: Merlene Sadler [facility] Medical 01/08/2020 12:00:00 AM EST HILDA ([facility]) Merlene Sadler, [employer] SALESPERSON: [address], [place] [address], Ph. Attender: Merlene Sadler [facility] Medical 01/08/2020 12:00:00 AM EST HILDA ([facility]) Merlene Sadler, [employer] SALESPERSON: [address], [place] [address], Ph. Attender: Merlene Sadler [facility] Medical 01/08/2020 12:00:00 AM EST HILDA ([facility]) Merlene Sadler, [facility]: [address], [place] [address], Ph. Attender: Merlene Sadler [facility] Medical 01/08/2020 12:00:00 AM EST HILDA ([facility]) Merlene Sadler, [facility]: [address], [place] [address], Ph. Attender: Merlene Sadler [facility] Medical 01/08/2020 12:00:00 AM EST HILDA ([facility]) Merlene Sadler, [facility]: [address], [place] [address], Ph. Attender: Merlene Sadler [facility] Medical 01/08/2020 12:00:00 AM EST HILDA ([facility]) Merlene Sadler, [employer] SAL[employer]: [address], [place] [address], Ph. Attender: Merlene Sadler [facility] Medical 01/08/2020 12:00:00 AM EST HILDA ([facility]) Merlene Sadler, [facility]: [address], [place] [address], Ph. Attender: Merlene Sadler [facility] Medical 01/08/2020 12:00:00 AM EST HILDA ([facility]) Merlene Sadler, [facility]: [address], [place] [address], Ph. Attender: Merlene Sadler [facility] Medical 01/08/2020 12:00:00 AM EST HILDA ([facility]) Merlene Sadler, [facility]: [address], [place] [address], Ph. Attender: Merlene Sadler [facility] Medical 01/08/2020 12:00:00 AM EST HILDA ([facility]) Merlene Sadler, [facility]: [address], [place] [address], Ph. Attender: Merlene Sadler [facility] Medical 01/08/2020 12:00:00 AM EST HILDA ([facility]) Merlene Sadler, [facility]: [address], [place] [address], Ph. Attender: Merlene Sadler [facility] Medical 01/08/2020 12:00:00 AM EST HILDA ([facility]) Merlene Sadler, [employer]: [address], [place] [address], Ph. Attender: Merlene Sadler [facility] Medical 01/08/2020 12:00:00 AM EST HILDA ([facility]) Merlene Sadler, [employer] SAL[employer]ERSON: [address], [place] [address], Ph. Attender: Merlene Sadler [facility] Medical 01/08/2020 12:00:00 AM EST HILDA ([facility]) Merlene Sadler, [employer] SALESPERSON: [address], [place] [address], Ph. Attender: Merlene Sadler [facility] Medical 01/08/2020 12:00:00 AM EST HILDA ([facility]) Merlene Sadler, [employer] SALESPERSON: [address], [place] [address], Ph. Attender: Merlene Sadler [facility] Medical 01/08/2020 12:00:00 AM EST HILDA ([facility]) Merlene Sadler, [employer] SAL[employer]ERSON: [address], [place] [address], Ph. Attender: Merlene Sadler [facility] Medical 01/08/2020 12:00:00 AM EST HILDA ([facility]) Merlene Sadler, [employer] SALESPERSON: [address], [place] [address], Ph. Attender: Merlene Sadler [facility] Medical 01/08/2020 12:00:00 AM EST HILDA ([facility]) Merlene Sadler, [employer] SALESPERSON: [address], [place] [address], Ph. Attender: Merlene Sadler [facility] Medical 01/08/2020 12:00:00 AM EST HILDA ([facility]) Merlene Sadler, [employer] SALESPERSON: [address], [place] [address], Ph. Attender: Merlene Sadler [facility] Medical 01/08/2020 12:00:00 AM EST HILDA ([facility]) Merlene Sadler [employer] SALESPERSON: [address], [place] [address], Ph. Attender: Merlene Sadler [facility] Medical 01/08/2020 12:00:00 AM EST HILDA ([facility]) Merlene Sadler, [employer]ER SALESPERSON: [address], [place] [address], Ph. Attender: Mrelene Sadler [facility] Medical 01/08/2020 12:00:00 AM EST HILDA ([facility]) Merlene Sadler, [employer]ER SALESPERSON: [address], [place] [address], Ph. Attender: Merlene Sadler [facility] Medical 01/08/2020 12:00:00 AM EST HILDA ([facility]) Merlene Sadler, [employer] SALESPERSON: [address], [place] [address], Ph. Attender: Merlene Sadler [facility] Medical 01/08/2020 12:00:00 AM EST HILDA ([facility]) Merlene Sadler, [facility]: [address], [place] [address], Ph. Attender: Merlene Sadler [facility] Medical 01/08/2020 12:00:00 AM EST HILDA ([facility]) Merlene Sadler, [employer] SALESPERSON: [address], [place] [address], Ph. Attender: Merlene Sadler [facility] Medical 01/08/2020 12:00:00 AM EST HILDA ([facility]) Merlene Sadler, [facility]: [address], [place] [address], Ph. Attender: Merlene Sadler [facility] Medical 01/08/2020 12:00:00 AM EST HILDA ([facility]) Merlene Sadler, [facility]: [address], [place] [address], Ph. Attender: Merlene Sadler [facility] Medical 01/08/2020 12:00:00 AM EST HILDA ([facility]) Merlene Sadler, [facility]: [address], [place] [address], Ph. Attender: Merlene Sadler [facility] Medical 01/08/2020 12:00:00 AM EST HILDA ([facility]) Merlene Sadler, [facility]: [address], [place] [address], Ph. Attender: Merlene Sadler [place] [facility] Medical 01/08/2020 12:00:00 AM EST HILDA ([facility]) Outpatient Attender: PALOMO LOVE MD Main Office 01/07/2020 12:00:00 PM EST MEDJUAN RAMON ([facility]) Terry Quiroga RPA-C: [address], [place] [address], Ph. Attender: TERRY QUIROGA RPA-C [facility] Medical 01/06/2020 12:00:00 AM EST HILDA ([facility]) Terry Quiroga RPA-C: [address], [place] [address], Ph. Attender: TERRY QUIROGA RPA-C [facility] Medical 01/06/2020 12:00:00 AM EST HILDA ([facility]) Terry Quiroga RPA-C: [address], [place] [address], Ph. Attender: TERRY WASHBURNC [facility] Medical 01/06/2020 12:00:00 AM EST HILDA ([facility]) Terry Quiroga RPA-C: [address], [place] [address], Ph. Attender: TERRY QUIROGA RPA-C [facility] Medical 01/06/2020 12:00:00 AM EST HILDA ([facility]) Terry Quiroga RPA-C: [address], [place] [address], Ph. Attender: TERRY QUIROGA RPA-C [facility] Medical 01/06/2020 12:00:00 AM EST HILDA ([facility]) Terry D Quiroga, RPA-C: [address], [place] [address], Ph. Attender: TERRY QUIROGA RPA-C [facility] Medical 01/06/2020 12:00:00 AM EST HILDA ([facility]) Terry Quiroga, RPA-C: [address], [address], [place] [address], Ph. Attender: TERRY QUIROGA RPA-C [facility] Medical 01/06/2020 12:00:00 AM EST HILDA ([facility]) Terry Quiroga, RPA-C: [address], [address], [place] [address], Ph. Attender: TERRY QUIROGA RPA-C [facility] Medical 01/06/2020 12:00:00 AM EST HILDA ([facility]) Terry Quiroga, RPA-C: [address], [address], [place] [address], Ph. Attender: TERRY QUIROGA RPA-C [facility] Medical 01/06/2020 12:00:00 AM EST HILDA ([facility]) Terry Quiroga RPA-C: [address], [address], [place] [address], Ph. Attender: TERRY QUIROGA RPA-C [facility] Medical 01/06/2020 12:00:00 AM EST HILDA ([facility]) Terry Quiroga, RPA-C: [address], [address], [place] [address], Ph. Attender: TERRY QUIROGA RPA-C [facility] Medical 01/06/2020 12:00:00 AM EST HILDA ([facility]) Terry Quiroga, RPA-C: [address], [address], [place] [address], Ph. Attender: TERRY QUIROGA RPA-C [facility] Medical 01/06/2020 12:00:00 AM EST HILDA ([facility]) Terry Quiroga, RPA-C: [address], [address], [place] [address], Ph. Attender: TERRY QUIROGA RPA-C [facility] Medical 01/06/2020 12:00:00 AM EST HILDA ([facility]) Terry Quiroga RPA-C: [address], [place] [address], Ph. Attender: TERRY QUIROGA RPA-C [facility] Medical 01/06/2020 12:00:00 AM EST HILDA ([facility]) Terry Quiroga, RPA-C: [address], [place] [address], Ph. Attender: TERRY QUIROGA RPA-C [facility] Medical 01/06/2020 12:00:00 AM EST HILDA ([facility]) Terry Quiroga, RPA-C: [address], [place] [address], Ph. Attender: TERRY QUIROGA RPA-C [facility] Medical 01/06/2020 12:00:00 AM EST HILDA ([facility]) Terry Quiroga, RPA-C: [address], [place] [address], Ph. Attender: TERRY QUIROGA RPA-C [facility] Medical 01/06/2020 12:00:00 AM EST HILDA ([facility]) Terry Quiroga RPA-C: [address], [place] [address], Ph. Attender: TERRY QUIROGA RPA-C [facility] Medical 01/06/2020 12:00:00 AM EST HILDA ([facility]) Terry Quiroga RPA-C: [address], [address], [place] [address], Ph. Attender: TERRY QUIROGA RPA-C [facility] Medical 01/06/2020 12:00:00 AM EST HILDA ([facility]) Terry Quiroga RPA-C: [address], [place] [address], Ph. Attender: TERRY QUIROGA RPA-C [facility] Medical 01/06/2020 12:00:00 AM EST HILDA ([facility]) Terry Quiroga RPA-C: [address], [address], [place] [address], Ph. Attender: TERRY QUIROGA RPA-C [facility] Medical 01/06/2020 12:00:00 AM EST HILDA ([facility]) Terry Quiroga, RPA-C: [address], [place] [address], Ph. Attender: TERRY QUIROGA RPA-C [facility] Medical 01/06/2020 12:00:00 AM EST HILDA ([facility]) Terry Quiroga RPA-C: [address], [place] [address], Ph. Attender: TERRY QUIROGA RPA-C [facility] Medical 01/06/2020 12:00:00 AM EST HILDA ([facility]) Terry Quiroga RPA-C: [address], [place] [address], Ph. Attender: TERRY QUIROGA RPA-C [facility] Medical 01/06/2020 12:00:00 AM EST HILDA ([facility]) Terry Quiroga RPA-C: [address], [address], [place] [address], Ph. Attender: TERRY QUIROGA RPA-C [facility] Medical 01/06/2020 12:00:00 AM EST HILDA ([facility]) Terry Quiroga RPA-C: [address], [address], [place] [address], Ph. Attender: TERRY QUIROGA RPA-C [facility] Medical 01/06/2020 12:00:00 AM EST HILDA ([facility]) Terry Quiroga RPA-C: [address], [place] [address], Ph. Attender: TERRY QUIROGA RPA-C [facility] Medical 01/06/2020 12:00:00 AM EST HILDA ([facility]) Terry Quiroga RPA-C: [address], [place] [address], Ph. Attender: TERRY QUIROGA RPA-C [facility] Medical 01/06/2020 12:00:00 AM EST HILDA ([facility]) Terry Quiroga RPA-C: [address], [place] [address], Ph. Attender: TERRY QUIROGA RPA-C [facility] Medical 01/06/2020 12:00:00 AM EST HILDA ([facility]) Terry Quiroga, RPA-C: [address], [place] [address], Ph. Attender: TERRY QUIROGA RPA-C [facility] Medical 01/06/2020 12:00:00 AM EST HILDA ([facility]) Terry Quiroga RPA-C: [address], [address], [place] [address], Ph. Attender: TERRY QUIROGA RPA-C [facility] Medical 01/06/2020 12:00:00 AM EST HILDA ([facility]) Terry Quiroga, RPA-C: [address], [place] [address], Ph. Attender: TERRY QUIROGA RPA-C [facility] Medical 01/06/2020 12:00:00 AM EST HILDA ([facility]) Terry Quiroga RPA-C: [address], [address], [place] [address], Ph. Attender: TERRY QUIROGA RPA-C [facility] Medical 01/06/2020 12:00:00 AM EST HILDA ([facility]) Terry Quiroga, RPA-C: [address], [place] [address], Ph. Attender: TERRY QUIROGA RPA-C [facility] Medical 12/31/2019 12:00:00 AM EST HILDA ([facility]) Terry Quiroga, RPA-C: [address], [place] [address], Ph. Attender: TERRY QUIROGA RPA-C [facility] Medical 12/31/2019 12:00:00 AM EST HILDA ([facility]) Terry Quiroga, RPA-C: [address], [place] [address], Ph. Attender: TERRY QUIROGA RPA-C [facility] Medical 12/31/2019 12:00:00 AM EST HILDA ([facility]) Terry Quiroga RPA-C: [address], [place] [address], Ph. Attender: TERRY QUIROGA RPA-C [facility] Medical 12/31/2019 12:00:00 AM EST HILDA ([facility]) Terry Quiroga, RPA-C: [address], [place] [address], Ph. Attender: TERRY QUIROGA RPA-C [facility] Medical 12/31/2019 12:00:00 AM EST HILDA ([facility]) Terry Quiroga, RPA-C: [address], [place] [address], Ph. Attender: TERRY QUIROGA RPA-C [facility] Medical 12/31/2019 12:00:00 AM EST HILDA ([facility]) Terry Quiroga RPA-C: [address], [place] [address], Ph. Attender: TERRY QUIROGA RPA-C [facility] Medical 12/31/2019 12:00:00 AM EST HILDA ([facility]) Terry Quiroga RPA-C: [address], [place] [address], Ph. Attender: TERRY QUIROGA RPA-C [facility] Medical 12/31/2019 12:00:00 AM EST HILDA ([facility]) Terry Quiroga RPA-C: [address], [place] [address], Ph. Attender: TERRY QUIROGA RPA-C [facility] Medical 12/31/2019 12:00:00 AM EST HILDA ([facility]) Terry Quiroga RPA-C: [address], [place] [address], Ph. Attender: TERRY QUIROGA RPA-C [facility] Medical 12/31/2019 12:00:00 AM EST HILDA ([facility]) Terry Quiroga RPA-C: [address], [place] [address], Ph. Attender: TERRY QUIROGA RPA-C [facility] Medical 12/31/2019 12:00:00 AM EST HILDA ([facility]) Terry Quiroga, RPA-C: [address], [place] [address], Ph. Attender: TERRY QUIROGA RPA-C [facility] Medical 12/31/2019 12:00:00 AM EST HILDA ([facility]) Terry Quiroga RPA-C: [address], [place] [address], Ph. Attender: TERRY QUIROGA RPA-C [facility] Medical 12/31/2019 12:00:00 AM EST HILDA ([facility]) Terry Quiroga RPA-C: [address], [place] [address], Ph. Attender: TERRY QUIROGA RPA-C [facility] Medical 12/31/2019 12:00:00 AM EST HILDA ([facility]) Terry Quiroga RPA-C: [address], [place] [address], Ph. Attender: TERRY QUIROGA RPA-C [facility] Medical 12/31/2019 12:00:00 AM EST HILDA ([facility]) Terry Quiroga RPA-C: [address], [place] [address], Ph. Attender: TERRY QUIROGA RPA-C [facility] Medical 12/31/2019 12:00:00 AM EST HILDA ([facility]) Terry Quiroga, RPA-C: [address], [place] [address], Ph. Attender: TERRY QUIROGA RPA-C [facility] Medical 12/31/2019 12:00:00 AM EST HILDA ([facility]) Terry Quiroga RPA-C: [address], [place] [address], Ph. Attender: TERRY QUIROGA RPA-C [facility] Medical 12/31/2019 12:00:00 AM EST HILDA ([facility]) Terry D Quiroga, RPA-C: [address], [place] [address], Ph. Attender: TERRY QUIROGA RPA-C [facility] Medical 12/31/2019 12:00:00 AM EST HILDA ([facility]) Terry Quiroga, RPA-C: [address], [place] [address], Ph. Attender: TERRY QUIROGA RPA-C [facility] Medical 12/31/2019 12:00:00 AM EST HILDA ([facility]) Terry Quiroga RPA-C: [address], [place] [address], Ph. Attender: TERRY QUIROGA RPA-C [facility] Medical 12/31/2019 12:00:00 AM EST HILDA ([facility]) Terry Quiroga, RPA-C: [address], [place] [address], Ph. Attender: TERRY QUIROGA RPA-C [facility] Medical 12/31/2019 12:00:00 AM EST HILDA ([facility]) Terry Quiroga RPA-C: [address], [place] [address], Ph. Attender: TERRY QUIROGA RPA-C [facility] Medical 12/31/2019 12:00:00 AM EST HILDA ([facility]) Terry Quiroga, RPA-C: [address], [place] [address], Ph. Attender: TERRY QUIROGA RPA-C [facility] Medical 12/31/2019 12:00:00 AM EST HILDA ([facility]) Terry Quiroga, RPA-C: [address], [place] [address], Ph. Attender: TERRY QUIROGA RPA-C [facility] Medical 12/31/2019 12:00:00 AM EST HILDA ([facility]) Terry Quiroga, RPA-C: [address], [place] [address], Ph. Attender: TERRY QUIROGA RPA-C [facility] Medical 12/31/2019 12:00:00 AM EST HILDA ([facility]) Terry Quiroga, RPA-C: [address], [place] [address], Ph. Attender: TERRY QUIROGA RPA-C [facility] Medical 12/31/2019 12:00:00 AM EST HILDA ([facility]) Terry Quiroga, RPA-C: [address], [place] [address], Ph. Attender: TERRY QUIROGA RPA-C [facility] Medical 12/31/2019 12:00:00 AM EST HILDA ([facility]) Terry Quiroga, RPA-C: [address], [place] [address], Ph. Attender: TERRY QUIROGA RPA-C [facility] Medical 12/31/2019 12:00:00 AM EST HILDA ([facility]) Terry Quiroga RPA-C: [address], [place] [address], Ph. Attender: TERRY QUIROGA RPA-C [facility] Medical 12/31/2019 12:00:00 AM EST HILDA ([facility]) Terry Quiroga RPA-C: [address], [place] [address], Ph. Attender: TERRY QUIROGA RPA-C [facility] Medical 12/31/2019 12:00:00 AM EST HILDA ([facility]) Terry Quiroga RPA-C: [address], [place] [address], Ph. Attender: TERRY QUIROGA RPA-C [facility] Medical 12/31/2019 12:00:00 AM EST HILDA ([facility]) Terry Quiroga RPA-C: [address], [place] [address], Ph. Attender: TERRY QUIROGA RPA-C [facility] Medical 12/31/2019 12:00:00 AM EST HILDA ([facility]) Merlenemarie Sadler, [employer] DES[employer] SALESPERSON: [address], [place] [address], Ph. Attender: Merlene Sadler [facility] Medical 12/26/2019 12:00:00 AM EST HILDA ([facility]) Merlene Sadler, FLORAL DESIGNER SALESPERSON: [address], [place] [address], Ph. Attender: Merlene Sadler [facility] Medical 12/26/2019 12:00:00 AM EST HILDA ([facility]) Merlene Sadler, FLORAL DESIGNER SALESPERSON: [address], [place] [address], Ph. Attender: Merlene Sadler [facility] Medical 12/26/2019 12:00:00 AM EST HILDA ([facility]) Merlene Sadler, [facility]: [address], [place] [address], Ph. Attender: Merlene Sadler [facility] Medical 12/26/2019 12:00:00 AM EST HILDA ([facility]) Merlene Sadler, [facility]: [address], [place] [address], Ph. Attender: Merlene Sadler [facility] Medical 12/26/2019 12:00:00 AM EST HILDA ([facility]) Merlene Sadler, [facility]: [address], [place] [address], Ph. Attender: Merlene Sadler [facility] Medical 12/26/2019 12:00:00 AM EST HILDA ([facility]) Merlene Sadler, [facility]: [address], [place] [address], Ph. Attender: Merlene Sadler [facility] Medical 12/26/2019 12:00:00 AM EST HILDA ([facility]) Merlene Sadler, [facility]: [address], [place] [address], Ph. Attender: Merlene Sadler [facility] Medical 12/26/2019 12:00:00 AM EST HILDA ([facility]) Merlene Sadler, [facility]: [address], [place] [address], Ph. Attender: Merlene Sadler [facility] Medical 12/26/2019 12:00:00 AM EST HILDA ([facility]) Merlene Sadler, [employer]: [address], [place] [address], Ph. Attender: Merlene Sadler [facility] Medical 12/26/2019 12:00:00 AM EST HILDA ([facility]) Merlene Sadler, [employer]: [address], [place] [address], Ph. Attender: Merlene Sadler [facility] Medical 12/26/2019 12:00:00 AM EST HILDA ([facility]) Merlene Sadler, [employer]: [address], [place] [address], Ph. Attender: Merlene Sadler [facility] Medical 12/26/2019 12:00:00 AM EST HILDA ([facility]) Merlene Sadler, [employer]: [address], [place] [address], Ph. Attender: Merlene Sadler [facility] Medical 12/26/2019 12:00:00 AM EST HILDA ([facility]) Merlene Sadler, [employer]: [address], [place] [address], Ph. Attender: Merlene Sadler [facility] Medical 12/26/2019 12:00:00 AM EST HILDA ([facility]) Merlene Sadler, [employer]: [address], [place] [address], Ph. Attender: Merlene Sadler [facility] Medical 12/26/2019 12:00:00 AM EST HILDA ([facility]) Merlene Sadler, [facility]: [address], [place] [address], Ph. Attender: Merlene Sadler [facility] Medical 12/26/2019 12:00:00 AM EST HILDA ([facility]) Merlene Sadler, [employer]: [address], [place] [address], Ph. Attender: Merlene Sadler [facility] Medical 12/26/2019 12:00:00 AM EST HILDA ([facility]) Merlene Sadler, [employer]: [address], [place] [address], Ph. Attender: Merlene Sadler [facility] Medical 12/26/2019 12:00:00 AM EST HILDA ([facility]) Merlene Sadler, [employer]: [address], [place] [address], Ph. Attender: Merlene Sadler [facility] Medical 12/26/2019 12:00:00 AM EST HILDA ([facility]) Merlene Sadler, [facility]: [address], [place] [address], Ph. Attender: Merlene Sadler [facility] Medical 12/26/2019 12:00:00 AM EST HILDA ([facility]) Merlene Sadler, [facility]: [address], [place] [address], Ph. Attender: Merlene Sadler [facility] Medical 12/26/2019 12:00:00 AM EST HILDA ([facility]) Merlene Sadler, [facility]: [address], [place] [address], Ph. Attender: Merlene Sadler [facility] Medical 12/26/2019 12:00:00 AM EST HILDA ([facility]) Merlene Sadler, [facility]: [address], [place] [address], Ph. Attender: Merlene Sadler [facility] Medical 12/26/2019 12:00:00 AM EST HILDA ([facility]) Merlene Sadler, [facility]: [address], [place] [address], Ph. Attender: Merlene Sadler [facility] Medical 12/26/2019 12:00:00 AM EST HILDA ([facility]) Merlene Sadler, [facility]: [address], [place] [address], Ph. Attender: Merlene Sadler [facility] Medical 12/26/2019 12:00:00 AM EST HILDA ([facility]) Merlene Sadler, [facility]: [address], [place] [address], Ph. Attender: Merlene Sadler [facility] Medical 12/26/2019 12:00:00 AM EST HILDA ([facility]) Merlene Sadler, [facility]: [address], [place] [address], Ph. Attender: Merlene Sadler [facility] Medical 12/26/2019 12:00:00 AM EST HILDA ([facility]) Merlene Sadler, [facility]: [address], [address], [place] [address], Ph. Attender: Merlene Sadler [facility] Medical 12/26/2019 12:00:00 AM EST HILDA ([facility]) Merlene Sadler, [employer]: [address], [place] [address], Ph. Attender: Merlene Sadler [facility] Medical 12/26/2019 12:00:00 AM EST HILDA ([facility]) Merlene Sadler, [employer]: [address], [place] [address], Ph. Attender: Merlene Sadler [facility] Medical 12/26/2019 12:00:00 AM EST HILDA ([facility]) Merlene Sadler, [employer]: [address], [place] [address], Ph. Attender: Merlene Sadler [facility] Medical 12/26/2019 12:00:00 AM EST HILDA ([facility]) Merlene Sadler, [employer]: [address], [place] [address], Ph. Attender: Merlene Sadler [facility] Medical 12/26/2019 12:00:00 AM EST HILDA ([facility]) Merlene Sadler, [employer]: [address], [place] [address], Ph. Attender: Merlene Sadler [facility] Medical 12/26/2019 12:00:00 AM EST HILDA ([facility]) Merlene Sadler, [employer]: [address], [place] [address], Ph. Attender: Merlene Sadler [facility] Medical 12/26/2019 12:00:00 AM EST HILDA ([facility]) Merlene Sadler, [employer]: [address], [place] [address], Ph. Attender: Merlene Sadler [facility] Medical 12/19/2019 12:00:00 AM EST HILDA ([facility]) Merlene Sadler, [employer]: [address], [place] [address], Ph. Attender: Merlene Sadler [facility] Medical 12/19/2019 12:00:00 AM EST HILDA ([facility]) Merlene Sadler, [employer]: [address], [place] [address], Ph. Attender: Merlene Sadler [facility] Medical 12/19/2019 12:00:00 AM EST HILDA ([facility]) Merlene Sadler, [employer]: [address], [place] [address], Ph. Attender: Merlene Sadler [facility] Medical 12/19/2019 12:00:00 AM EST HILDA ([facility]) Merlene Sadler, [employer]: [address], [place] [address], Ph. Attender: Merlene Sadler [facility] Medical 12/19/2019 12:00:00 AM EST HILDA ([facility]) Merlene Sadler, [employer]: [address], [place] [address], Ph. Attender: Merlene Sadler [facility] Medical 12/19/2019 12:00:00 AM EST HILDA ([facility]) Merlene Sadler, [facility]: [address], [address], [place] [address], Ph. Attender: Merlene Sadler [facility] Medical 12/19/2019 12:00:00 AM EST HILDA ([facility]) Merlene Sadler, [employer]: [address], [place] [address], Ph. Attender: Merlene Sadler [facility] Medical 12/19/2019 12:00:00 AM EST HILDA ([facility]) Merlene Sadler, [facility]: [address], [place] [address], Ph. Attender: Merlene Sadler [facility] Medical 12/19/2019 12:00:00 AM EST HILDA ([facility]) Merlene Sadler, [facility]: [address], [place] [address], Ph. Attender: Merlene Sadler [facility] Medical 12/19/2019 12:00:00 AM EST HILDA ([facility]) Merlene Sadler, [facility]: [address], [place] [address], Ph. Attender: Merlene Sadler [facility] Medical 12/19/2019 12:00:00 AM EST HILDA ([facility]) Merlene Sadler, [employer]: [address], [place] [address], Ph. Attender: Merlene Sadler [facility] Medical 12/19/2019 12:00:00 AM EST HILDA ([facility]) Merlene Sadler, [facility]: [address], [place] [address], Ph. Attender: Merlene Sadler [facility] Medical 12/19/2019 12:00:00 AM EST HILDA ([facility]) Merlene Sadler, [employer]: [address], [place] [address], Ph. Attender: Merlene Sadler [facility] Medical 12/19/2019 12:00:00 AM EST HILDA ([facility]) Merlene Sadler, [employer]: [address], [place] [address], Ph. Attender: Merlene Sadler [facility] Medical 12/19/2019 12:00:00 AM EST HILDA ([facility]) Merlene Sadler, [facility]: [address], [address], [place] [address], Ph. Attender: Merlene Sadler [facility] Medical 12/19/2019 12:00:00 AM EST HILDA ([facility]) Merlene Sadler [facility]: [address], [place] [address], Ph. Attender: Merlene Sadler [facility] Medical 12/19/2019 12:00:00 AM EST HILDA ([facility]) Merlene Sadler, [employer]: [address], [place] [address], Ph. Attender: Merlene Sadler [facility] Medical 12/19/2019 12:00:00 AM EST HILDA ([facility]) Merlene Sadler, [facility]: [address], [address], [place] [address], Ph. Attender: Merlene Sadler [facility] Medical 12/19/2019 12:00:00 AM EST HILDA ([facility]) Merlene Sadler, [employer]: [address], [place] [address], Ph. Attender: Merlene Sadler [facility] Medical 12/19/2019 12:00:00 AM EST HILDA ([facility]) Merlene Sadler, [employer]: [address], [place] [address], Ph. Attender: Merlene Sadler [facility] Medical 12/19/2019 12:00:00 AM EST HILDA ([facility]) Merlene Sadler, [employer]: [address], [place] [address], Ph. Attender: Merlene Sadler [facility] Medical 12/19/2019 12:00:00 AM EST HILDA ([facility]) Merlene Sadler [employer]: [address], [place] [address], Ph. Attender: Merlene Sadler [facility] Medical 12/19/2019 12:00:00 AM EST HILDA ([facility]) Merlene Sadler, [employer]: [address], [place] [address], Ph. Attender: Merlene Sadler [facility] Medical 12/19/2019 12:00:00 AM EST HILDA ([facility]) Merlene Sadler, [facility]: [address], [place] [address], Ph. Attender: Merlene Sadler [facility] Medical 12/19/2019 12:00:00 AM EST HILDA ([facility]) Merlene Sadler, [employer]: [address], [place] [address], Ph. Attender: Merlene Sadler [facility] Medical 12/19/2019 12:00:00 AM EST HILDA ([facility]) Merlene Sadler, [facility]: [address], [place] [address], Ph. Attender: Merlene Sadler [facility] Medical 12/19/2019 12:00:00 AM EST HILDA ([facility]) Merlene Sadler, [facility]: [address], [place] [address], Ph. Attender: Merlene Sadler [facility] Medical 12/19/2019 12:00:00 AM EST HILDA ([facility]) Merlene Sadler, [facility]: [address], [place] [address], Ph. Attender: Merlene Sadler [facility] Medical 12/19/2019 12:00:00 AM EST HILDA ([facility]) Merlene Sadler, [facility]: [address], [place] [address], Ph. Attender: Merlene Sadler [facility] Medical 12/19/2019 12:00:00 AM EST HILDA ([facility]) Merlene Sadler, [employer]: [address], [place] [address], Ph. Attender: Merlene Sadler [facility] Medical 12/19/2019 12:00:00 AM EST HILDA ([facility]) Merlene Sadler, [employer]: [address], [place] [address], Ph. Attender: Merlene Sadler [facility] Medical 12/19/2019 12:00:00 AM EST HILDA ([facility]) Merlene Sadler, [employer]: [address], [place] [address], Ph. Attender: Merlene Sadler [facility] Medical 12/19/2019 12:00:00 AM EST HILDA ([facility]) Merlene Sadler, [employer]: [address], [place] [address], Ph. Attender: Merlene Sadler [facility] Medical 12/19/2019 12:00:00 AM EST HILDA ([facility]) Merlene Sadler, [employer]: [address], [place] [address], Ph. Attender: Merlene Sadler [facility] Medical 12/19/2019 12:00:00 AM EST HILDA ([facility]) Merlene Sadler, [employer]: [address], [place] [address], Ph. Attender: Merlene Sadler [facility] Medical 12/19/2019 12:00:00 AM EST HILDA ([facility]) Merlene Sadler, [employer]: [address], [place] [address], Ph. Attender: Merlene Sadler [facility] Medical 12/18/2019 12:00:00 AM EST HILDA ([facility]) Merlene Sadler, [employer]: [address], [place] [address], Ph. Attender: Merlene Sadler [facility] Medical 12/18/2019 12:00:00 AM EST HILDA ([facility]) Merlene Sadler, [employer]: [address], [place] [address], Ph. Attender: Merlene Sadler [facility] Medical 12/18/2019 12:00:00 AM EST HILDA ([facility]) Merlene Sadler, [employer]: [address], [place] [address], Ph. Attender: Merlene Sadler [facility] Medical 12/18/2019 12:00:00 AM EST HILDA ([facility]) Merlene Sadler, [employer]: [address], [place] [address], Ph. Attender: Merlene Sadler [facility] Medical 12/18/2019 12:00:00 AM EST HILDA ([facility]) Merlene Sadler, [employer]: [address], [place] [address], Ph. Attender: Merlene Sadler [facility] Medical 12/18/2019 12:00:00 AM EST HILDA ([facility]) Merlene Sadler, [employer]: [address], [place] [address], Ph. Attender: Merlene Sadler [facility] Medical 12/18/2019 12:00:00 AM EST HILDA ([facility]) Merlene Sadler, [employer]: [address], [place] [address], Ph. Attender: Merlene Sadler [facility] Medical 12/18/2019 12:00:00 AM EST HILDA ([facility]) Merlene Sadler, [employer]: [address], [place] [address], Ph. Attender: Merlene Sadler [facility] Medical 12/18/2019 12:00:00 AM EST HILDA ([facility]) Merlene Sadler, [facility]: [address], [place] [address], Ph. Attender: Merlene Sadler [facility] Medical 12/18/2019 12:00:00 AM EST HILDA ([facility]) Merlene Sadler, [facility]: [address], [place] [address], Ph. Attender: Merlene Sadler [facility] Medical 12/18/2019 12:00:00 AM EST HILDA ([facility]) Merlene Sadler, [facility]: [address], [place] [address], Ph. Attender: Merlene Sadler [facility] Medical 12/18/2019 12:00:00 AM EST HILDA ([facility]) Merlene Sadler, [employer]: [address], [place] [address], Ph. Attender: Merlene Sadler [facility] Medical 12/18/2019 12:00:00 AM EST HILDA ([facility]) Merlene Sadler, [employer]: [address], [place] [address], Ph. Attender: Merlene Sadler [facility] Medical 12/18/2019 12:00:00 AM EST HILDA ([facility]) Merlene Sadler, [employer]: [address], [place] [address], Ph. Attender: Merlene Sadler [facility] Medical 12/18/2019 12:00:00 AM EST HILDA ([facility]) Merlene Sadler, [employer]: [address], [place] [address], Ph. Attender: Merlene Sadler [facility] Medical 12/18/2019 12:00:00 AM EST HILDA ([facility]) Merlene Sadler, FLORAL DESIGNER SALESPERSON: [address], [place] [address], Ph. Attender: Merlene Sadler [facility] Medical 12/18/2019 12:00:00 AM EST HILDA ([facility]) Merlene Sadler, FLORAL DESIGNER SALESPERSON: [address], [place] [address], Ph. Attender: Merlene Sadler [facility] Medical 12/18/2019 12:00:00 AM EST HILDA ([facility]) Merlene Sadler, FLORAL DESIGNER SALESPERSON: [address], [place] [address], Ph. Attender: Merlene Sadler [facility] Medical 12/18/2019 12:00:00 AM EST HILDA ([facility]) Merlene Sadler FLOR[employer] DESIGNER SALESPERSON: [address], [place] [address], Ph. Attender: Merlene Sadler [facility] Medical 12/18/2019 12:00:00 AM EST HILDA ([facility]) Merlene Sadler FLOR[employer] DESIGNER SALESPERSON: [address], [place] [address], Ph. Attender: Merlene Sadler [facility] Medical 12/18/2019 12:00:00 AM EST HILDA ([facility]) Merlene Sadler FLOR[employer] DESIGNER SALESPERSON: [address], [place] [address], Ph. Attender: Merlene Sadler [facility] Medical 12/18/2019 12:00:00 AM EST HILDA ([facility]) Merlene Sadler, [employer]: [address], [place] [address], Ph. Attender: Merlene Sadler [facility] Medical 12/18/2019 12:00:00 AM EST HILDA ([facility]) Merlene Sadler [employer]: [address], [place] [address], Ph. Attender: Merlene Sadler [facility] Medical 12/18/2019 12:00:00 AM EST HILDA ([facility]) Merlene Sadler [employer]: [address], [place] [address], Ph. Attender: Merlene Sadler [facility] Medical 12/18/2019 12:00:00 AM EST HILDA ([facility]) Merlene Sadler, [employer]: [address], [place] [address], Ph. Attender: Merlene Sadler [facility] Medical 12/18/2019 12:00:00 AM EST HILDA ([facility]) Merlene Sadler, [employer]: [address], [place] [address], Ph. Attender: Merlene Sadler [facility] Medical 12/18/2019 12:00:00 AM EST HILDA ([facility]) Melrene Sadler, [facility]: [address], [place] [address], Ph. Attender: Merlene Sadler [facility] Medical 12/18/2019 12:00:00 AM EST HILDA ([facility]) Merlene Sadler, [facility]: [address], [place] [address], Ph. Attender: Merlene Sadler [facility] Medical 12/18/2019 12:00:00 AM EST HILDA ([facility]) Merlene Sadler, [facility]: [address], [place] [address], Ph. Attender: Merlene Sadler [facility] Medical 12/18/2019 12:00:00 AM EST HILDA ([facility]) Merlene Sadler, [facility]: [address], [place] [address], Ph. Attender: Merlene Sadler [facility] Medical 12/18/2019 12:00:00 AM EST HILDA ([facility]) Merlene Sadler, [employer]: [address], [place] [address], Ph. Attender: Merlene Sadler [facility] Medical 12/18/2019 12:00:00 AM EST HILDA ([facility]) Merlene Sadler, [employer]: [address], [place] [address], Ph. Attender: Merlene Sadler [facility] Medical 12/18/2019 12:00:00 AM EST HILDA ([facility]) Merlene Sadler, [employer]: [address], [place] [address], Ph. Attender: Merlene Sadler [facility] Medical 12/18/2019 12:00:00 AM EST HILDA ([facility]) Merlene Sadler, [employer]: [address], [place] [address], Ph. Attender: Merlene Sadler [facility] Medical 12/18/2019 12:00:00 AM EST HILDA ([facility]) Merlene Sadler, [employer]: [address], [place] [address], Ph. Attender: Merlene Sadler [facility] Medical 12/18/2019 12:00:00 AM EST HILDA ([facility]) Merlene Sadler, [employer]: [address], [place] [address], Ph. Attender: Merlene Sadler [facility] Medical 12/18/2019 12:00:00 AM EST HILDA ([facility]) Merlene Sadler, [employer]ERSON: [address], [place] [address], Ph. Attender: Merlene Sadler [facility] Medical 12/12/2019 12:00:00 AM EST HILDA ([facility]) Merlene Sadler, [employer]ERSON: [address], [place] [address], Ph. Attender: Merlene Sadler [facility] Medical 12/12/2019 12:00:00 AM EST HILDA ([facility]) Merlene Sadler, [employer]ERSON: [address], [place] [address], Ph. Attender: Merlene Sadler [facility] Medical 12/12/2019 12:00:00 AM EST HILDA ([facility]) Merlene Sadler, [facility]: [address], [place] [address], Ph. Attender: Merlene Sadler [facility] Medical 12/12/2019 12:00:00 AM EST HILDA ([facility]) Merlene Sadler, [facility]: [address], [place] [address], Ph. Attender: Merlene Sadler [facility] Medical 12/12/2019 12:00:00 AM EST HILDA ([facility]) Merlene Sadler, [employer]ERSON: [address], [place] [address], Ph. Attender: Merlene Sadler [facility] Medical 12/12/2019 12:00:00 AM EST HILDA ([facility]) Merlene Sadler, [employer]ERSON: [address], [place] [address], Ph. Attender: Merlene Sadler [facility] Medical 12/12/2019 12:00:00 AM EST HILDA ([facility]) Merlene Sadler [facility]: [address], [place] [address], Ph. Attender: Merlene Sadler [facility] Medical 12/12/2019 12:00:00 AM EST HILDA ([facility]) Merlene Sadler, [employer] SAL[employer]ERSON: [address], [place] [address], Ph. Attender: Merlene Sadler [facility] Medical 12/12/2019 12:00:00 AM EST HILDA ([facility]) Merlene Sadler [facility]: [address], [place] [address], Ph. Attender: Merlene Sadler [facility] Medical 12/12/2019 12:00:00 AM EST HILDA ([facility]) Merlene Sadler [facility]: [address], [place] [address], Ph. Attender: Merlene Sadler [facility] Medical 12/12/2019 12:00:00 AM EST HILDA ([facility]) Merlene Sadler [facility]: [address], [place] [address], Ph. Attender: Merlene Sadler [facility] Medical 12/12/2019 12:00:00 AM EST HILDA ([facility]) Merlene Sadler, [employer]: [address], [place] [address], Ph. Attender: Merlene Sadler [facility] Medical 12/12/2019 12:00:00 AM EST HILDA ([facility]) Merlene Sadler, [facility]: [address], [place] [address], Ph. Attender: Merlene Sadler [facility] Medical 12/12/2019 12:00:00 AM EST HILDA ([facility]) Merlene Sadler [employer] SAL[employer]ERSON: [address], [place] [address], Ph. Attender: Merlene Sadler [facility] Medical 12/12/2019 12:00:00 AM EST HILDA ([facility]) Merlene Sadler, [employer] SAL[employer]ERSON: [address], [place] [address], Ph. Attender: Merlene Sadler [facility] Medical 12/12/2019 12:00:00 AM EST HILDA ([facility]) Merlene Sadler, [facility]: [address], [place] [address], Ph. Attender: Merlene Sadler [facility] Medical 12/12/2019 12:00:00 AM EST HILDA ([facility]) Merlene Sadler [facility]: [address], [place] [address], Ph. Attender: Merlene Sadler [facility] Medical 12/12/2019 12:00:00 AM EST HILDA ([facility]) Merlene Sadler, [facility]: [address], [place] [address], Ph. Attender: Merlene Sadler [facility] Medical 12/12/2019 12:00:00 AM EST HILDA ([facility]) Merlene Sadler, [facility]: [address], [place] [address], Ph. Attender: Merlene aSdler [facility] Medical 12/12/2019 12:00:00 AM EST HILDA ([facility]) Merlene Sadler, [employer]ERSON: [address], [place] [address], Ph. Attender: Merlene Sadler [facility] Medical 12/12/2019 12:00:00 AM EST HILDA ([facility]) Merlene Sadler, [employer] SAL[employer]ERSON: [address], [place] [address], Ph. Attender: Merlene Sadler [facility] Medical 12/12/2019 12:00:00 AM EST HILDA ([facility]) Merlene Sadler, [employer] SAL[employer]ERSON: [address], [place] [address], Ph. Attender: Merlene Sadler [facility] Medical 12/12/2019 12:00:00 AM EST HIDLA ([facility]) Merlene Sadler, [employer] SALESPERSON: [address], [place] [address], Ph. Attender: Merlene Sadler [facility] Medical 12/12/2019 12:00:00 AM EST HILDA ([facility]) Merlene Sadler, [employer] SALESPERSON: [address], [place] [address], Ph. Attender: Merlene Sadler [facility] Medical 12/12/2019 12:00:00 AM EST HILDA ([facility]) Merlene Sadler, [employer] SALESPERSON: [address], [place] [address], Ph. Attender: Merlene Sadler [facility] Medical 12/12/2019 12:00:00 AM EST HILDA ([facility]) Merlene Sadler, [employer] SALESPERSON: [address], [place] [address], Ph. Attender: Merlene Sadler [facility] Medical 12/12/2019 12:00:00 AM EST HILDA ([facility]) Merlene Sadler, [employer] SALESPERSON: [address], [place] [address], Ph. Attender: Merlene Sadler [facility] Medical 12/12/2019 12:00:00 AM EST HILDA ([facility]) Merlene Sadler, [employer] SALESPERSON: [address], [place] [address], Ph. Attender: Merlene Sadler [facility] Medical 12/12/2019 12:00:00 AM EST HILDA ([facility]) Merlene Sadler, [employer] SALESPERSON: [address], [place] [address], Ph. Attender: Merlene Sadler [facility] Medical 12/12/2019 12:00:00 AM EST HILDA ([facility]) Merlene Sadler, [employer] SALESPERSON: [address], [place] [address], Ph. Attender: Merlene Sadler [facility] Medical 12/12/2019 12:00:00 AM EST HILDA ([facility]) Merlene Sadler, [employer] SALESPERSON: [address], [place] [address], Ph. Attender: Merlene Sadler [facility] Medical 12/12/2019 12:00:00 AM EST HILDA ([facility]) Merlene Sadler, [employer] SALESPERSON: [address], [place] [address], Ph. Attender: Merlene Sadler [facility] Medical 12/12/2019 12:00:00 AM EST HILDA ([facility]) Merlene Sadler, [employer] SALESPERSON: [address], [place] [address], Ph. Attender: Merlene Sadler [facility] Medical 12/12/2019 12:00:00 AM EST HILDA ([facility]) Merlene Sadler [employer] SALESPERSON: [address], [place] [address], Ph. Attender: Merlene Sadler [facility] Medical 12/12/2019 12:00:00 AM EST HILDA ([facility]) Merlene Sadler, [employer] SALESPERSON: [address], [place] [address], Ph. Attender: Merlene Sadler [facility] Medical 12/12/2019 12:00:00 AM EST HILDA ([facility]) Merlene Sadler [employer] SALESPERSON: [address], [place] [address], Ph. Attender: Merlene Sadler [facility] Medical 12/12/2019 12:00:00 AM EST HILDA ([facility]) Merlene Sadler, [employer] SALESPERSON: [address], [place] [address], Ph. Attender: Merlene Sadler [facility] Medical 12/12/2019 12:00:00 AM EST HILDA ([facility]) Terry Quiroga [facility]: [address], [place] [address], Ph. Attender: TERRY QUIROGA RPA-C [facility] Medical 12/11/2019 12:00:00 AM EST HILDA ([facility]) Terry Quiroga RPA-C: [address], [place] [address], Ph. Attender: TERRY QUIROGA RPA-C [facility] Medical 12/11/2019 12:00:00 AM EST HILDA ([facility]) Terry Quiroga RPA-C: [address], [place] [address], Ph. Attender: TERRY QUIROGA RPA-C [facility] Medical 12/11/2019 12:00:00 AM EST HILDA ([facility]) Terry Quiroga RPA-C: [address], [place] [address], Ph. Attender: TERRY QUIROGA RPA-C [facility] Medical 12/11/2019 12:00:00 AM EST HILDA ([facility]) Terry Quiroga, RPA[facility]C: [address], [place] [address], Ph. Attender: TERRY QUIROGA RPA-C [facility] Medical 12/11/2019 12:00:00 AM EST HILDA ([facility]) Terry Quiroga RPA-C: [address], [place] [address], Ph. Attender: TERRY QUIROGA RPA-C [facility] Medical 12/11/2019 12:00:00 AM EST HILDA ([facility]) Terry Quiroga RPA-C: [address], [place] [address], Ph. Attender: TERRY QUIROGA RPA-C [facility] Medical 12/11/2019 12:00:00 AM EST HILDA ([facility]) Terry Quiroga RPA-C: [address], [place] [address], Ph. Attender: TERRY QUIROGA RPA-C [facility] Medical 12/11/2019 12:00:00 AM EST HILDA ([facility]) Terry Quiroga RPA-C: [address], [place] [address], Ph. Attender: TERRY QUIROGA RPA-C [facility] Medical 12/11/2019 12:00:00 AM EST HILDA ([facility]) Terry Quiroga RPA-C: [address], [place] [address], Ph. Attender: TERRY QUIROGA RPA-C [facility] Medical 12/11/2019 12:00:00 AM EST HILDA ([facility]) Terry Quiroga RPA-C: [address], [place] [address], Ph. Attender: TERRY QUIROGA RPA-C [facility] Medical 12/11/2019 12:00:00 AM EST HILDA ([facility]) Terry Quiroga RPA-C: [address], [place] [address], Ph. Attender: TERRY QUIROGA RPA-C [facility] Medical 12/11/2019 12:00:00 AM EST HILDA ([facility]) Terry Quiroga RPA-C: [address], [place] [address], Ph. Attender: TERRY QUIROGA RPA-C [facility] Medical 12/11/2019 12:00:00 AM EST HILDA ([facility]) Terry Quiroga, R[facility]: [address], [place] [address], Ph. Attender: TERRY QUIROGA RPA-C [facility] Medical 12/11/2019 12:00:00 AM EST HILDA ([facility]) Terry Quiroga, RPA[facility]: [address], [place] [address], Ph. Attender: TERRY QUIROGA RPA-C [facility] Medical 12/11/2019 12:00:00 AM EST HILDA ([facility]) Terry Quiroga RPA-C: [address], [place] [address], Ph. Attender: TERRY QUIROGA RPA-C [facility] Medical 12/11/2019 12:00:00 AM EST HILDA ([facility]) Terry Quiroga, R[facility]: [address], [place] [address], Ph. Attender: TERRY QUIROGA RPA-C [facility] Medical 12/11/2019 12:00:00 AM EST HILDA ([facility]) Terry Quiroga RPA-C: [address], [place] [address], Ph. Attender: TERRY QUIROGA RPA-C [facility] Medical 12/11/2019 12:00:00 AM EST HILDA ([facility]) Terry Quirgoa RPA-C: [address], [place] [address], Ph. Attender: TERRY QUIROGA RPA-C [facility] Medical 12/11/2019 12:00:00 AM EST HILDA ([facility]) Terry Quiroga RPA-C: [address], [place] [address], Ph. Attender: TERRY QUIROGA RPA-C [facility] Medical 12/11/2019 12:00:00 AM EST HILDA ([facility]) Terry Quiroga RPA-C: [address], [place] [address], Ph. Attender: TERRY QUIROGA RPA-C [facility] Medical 12/11/2019 12:00:00 AM EST HILDA ([facility]) Terry Quiroga, RPA[facility]C: [address], [place] [address], Ph. Attender: TERRY QUIROGA RPA-C [facility] Medical 12/11/2019 12:00:00 AM EST HILDA ([facility]) Terry Quiroga, RPA[facility]C: [address], [place] [address], Ph. Attender: TERRY QUIROGA RPA-C [facility] Medical 12/11/2019 12:00:00 AM EST HILDA ([facility]) Terry Quiroga RPA-C: [address], [place] [address], Ph. Attender: TERRY QUIROGA RPA-C [facility] Medical 12/11/2019 12:00:00 AM EST HILDA ([facility]) Terry Quiroga RPA-C: [address], [place] [address], Ph. Attender: TERRY QUIROGA RPA-C [facility] Medical 12/11/2019 12:00:00 AM EST HILDA ([facility]) Terry Quiroga RPA-C: [address], [place] [address], Ph. Attender: TERRY QUIROGA RPA-C [facility] Medical 12/11/2019 12:00:00 AM EST HILDA ([facility]) Terry Quiroga RPA-C: [address], [place] [address], Ph. Attender: TERRY QUIROGA RPA-C [facility] Medical 12/11/2019 12:00:00 AM EST HILDA ([facility]) Terry Quiroga, RPA-C: [address], [place] [address], Ph. Attender: TERRY QUIROGA RPA-C [facility] Medical 12/11/2019 12:00:00 AM EST HILDA ([facility]) Terry Quiroga RPA-C: [address], [place] [address], Ph. Attender: TERRY QUIROGA RPA-C [facility] Medical 12/11/2019 12:00:00 AM EST HILDA ([facility]) Terry Quiroga RPA-C: [address], [place] [address], Ph. Attender: TERRY QUIROGA RPA-C [facility] Medical 12/11/2019 12:00:00 AM EST HILDA ([facility]) Terry Quiroga RPA-C: [address], [place] [address], Ph. Attender: TERRY QUIROGA RPA-C [facility] Medical 12/11/2019 12:00:00 AM EST HILDA ([facility]) Terry Quiroga RPA-C: [address], [place] [address], Ph. Attender: TERRY QUIROGA RPA-C [facility] Medical 12/11/2019 12:00:00 AM EST HILDA ([facility]) Terry Quiroga RPA-C: [address], [place] [address], Ph. Attender: TERRY QUIROGA RPA-C [facility] Medical 12/11/2019 12:00:00 AM EST HILDA ([facility]) Terry Quiroga RPA-C: [address], [place] [address], Ph. Attender: TERRY QUIROGA RPA-C [facility] Medical 12/11/2019 12:00:00 AM EST HILDA ([facility]) Terry Quiroga RPA-C: [address], [place] [address], Ph. Attender: TERRY QUIROGA RPA-C [facility] Medical 12/11/2019 12:00:00 AM EST HILDA ([facility]) Terry Quiroga RPA-C: [address], [place] [address], Ph. Attender: TERRY QUIROGA RPA-C [facility] Medical 12/11/2019 12:00:00 AM EST HILDA ([facility]) Terry Quiroga RPA-C: [address], [place] [address], Ph. Attender: TERRY QUIROGA RPA-C [facility] Medical 12/11/2019 12:00:00 AM EST HILDA ([facility]) Terry Quiroga RPA-C: [address], [place] [address], Ph. Attender: TERRY QUIROGA RPA-C [facility] Medical 12/11/2019 12:00:00 AM EST HILDA ([facility]) Merlene Sadler [facility]: [address], [place] [address], Ph. Attender: Merlene Sadler [facility] Medical 12/03/2019 12:00:00 AM EDT HILDA ([facility]) Merlene Sadler, [facility]: [address], [place] [address], Ph. Attender: Merlene Sadler [facility] Medical 12/03/2019 12:00:00 AM EDT HILDA ([facility]) Merlene Sadler, [facility]: [address], [place] [address], Ph. Attender: Merlene Sadler [facility] Medical 12/03/2019 12:00:00 AM EDT HILDA ([facility]) Merlene Sadler, [employer]: [address], [place] [address], Ph. Attender: Merlene Sadler [facility] Medical 12/03/2019 12:00:00 AM EDT HILDA ([facility]) Merlene Sadler, [employer]: [address], [place] [address], Ph. Attender: Merlene Sadler [facility] [facility] Medical 12/03/2019 12:00:00 AM EDT [facility] ([facility]) Merlene Sadler, [facility]: [address], [place] [address], Ph. Attender: Merlene Sadler [facility] Medical 12/03/2019 12:00:00 AM EDT [facility] ([facility]) Merlene Sadler [facility]: [address], [place] [address], Ph. Attender: Merlene Sadler [facility] Medical 12/03/2019 12:00:00 AM EDT [facility] ([facility]) Merlene Sadler, [facility]: [address], [place] [address], Ph. Attender: Merlene Sadler [facility] Medical 12/03/2019 12:00:00 AM EDT [facility] ([facility]) Merlene Sadler, [facility]: [address], [place] [address], Ph. Attender: Merlene Sadler [facility] Medical 12/03/2019 12:00:00 AM EDT [facility] ([facility]) Merlene Sadler, [facility]: [address], [place] [address], Ph. Attender: Merlene Sadler [facility] Medical 12/03/2019 12:00:00 AM EDT [facility] ([facility]) Merlene Sadler, [facility]: [address], [place] [address], Ph. Attender: Merlene Sadler [facility] Medical 12/03/2019 12:00:00 AM EDT [facility] ([facility]) Merlene Sadler, [facility]: [address], [place] [address], Ph. Attender: Merlene Sadler [facility] Medical 12/03/2019 12:00:00 AM EDT [facility] ([facility]) Merlene Sadler [facility]: [address], [place] [address], Ph. Attender: Merlene Sadler [facility] Medical 12/03/2019 12:00:00 AM EDT [facility] ([facility]) Merlene Sadler, [facility]: [address], [place] [address], Ph. Attender: Merlene Sadler [facility] Medical 12/03/2019 12:00:00 AM EDT [facility] ([facility]) Merlene Sadler, [facility]: [address], [place] [address], Ph. Attender: Merlene Sadler [facility] Medical 12/03/2019 12:00:00 AM EDT [facility] ([facility]) Merlene Sadler, [employer]: [address], [place] [address], Ph. Attender: Merlene Sadler [facility] Medical 12/03/2019 12:00:00 AM EDT [facility] ([facility]) Merlene Sadler, [facility]: [address], [place] [address], Ph. Attender: Merlene Sadler [facility] Medical 12/03/2019 12:00:00 AM EDT [facility] ([facility]) Merlene Sadler, [facility]: [address], [place] [address], Ph. Attender: Merlene Sadler [facility] Medical 12/03/2019 12:00:00 AM EDT [facility] ([facility]) Merlene Sadler [facility]: [address], [address], [place] [address], Ph. Attender: Merlene Sadler [facility] Medical 12/03/2019 12:00:00 AM EDT [facility] ([facility]) Merlene Sadler, [facility]: [address], [place] [address], Ph. Attender: Merlene Sadler [facility] Medical 12/03/2019 12:00:00 AM EDT [facility] ([facility]) Merlene Sadler, [employer]: [address], [place] [address], Ph. Attender: Merlene Sadler [facility] Medical 12/03/2019 12:00:00 AM EDT [facility] ([facility]) Merlene Sadler, [employer]: [address], [place] [address], Ph. Attender: Merlene Sadler [facility] Medical 12/03/2019 12:00:00 AM EDT [facility] ([facility]) Merlene Sadler, [facility]: [address], [address], [place] [address], Ph. Attender: Merlene Sadler [facility] Medical 12/03/2019 12:00:00 AM EDT [facility] ([facility]) Merlene Sadler, [employer]: [address], [place] [address], Ph. Attender: Merlene Sadler [facility] Medical 12/03/2019 12:00:00 AM EDT [facility] ([facility]) Merlene Sadler, [employer]: [address], [place] [address], Ph. Attender: Merlene Sadler [facility] Medical 12/03/2019 12:00:00 AM EDT [facility] ([facility]) Merlene Sadler, [facility]: [address], [place] [address], Ph. Attender: Merlene Sadler [facility] Medical 12/03/2019 12:00:00 AM EDT [facility] ([facility]) Merlene Sadler, [employer]: [address], [place] [address], Ph. Attender: Merlene Sadler [facility] Medical 12/03/2019 12:00:00 AM EDT [facility] ([facility]) Merlene Sadler, [employer]: [address], [place] [address], Ph. Attender: Merlene Sadler [facility] Medical 12/03/2019 12:00:00 AM EDT [facility] ([facility]) Merlene Sadler, [employer]: [address], [place] [address], Ph. Attender: Merlene Sadler [facility] Medical 12/03/2019 12:00:00 AM EDT [facility] ([facility]) Merlene Sadler, [employer]: [address], [place] [address], Ph. Attender: Merlene Sadler [facility] Medical 12/03/2019 12:00:00 AM EDT [facility] ([facility]) Merlene Sadler, [employer]: [address], [place] [address], Ph. Attender: Merlene Sadler [facility] Medical 12/03/2019 12:00:00 AM EDT [facility] ([facility]) Merlene Sadler, [employer]: [address], [place] [address], Ph. Attender: Merlene Sadler [facility] Medical 12/03/2019 12:00:00 AM EDT [facility] ([facility]) Merlene Sadler, [employer]: [address], [place] [address], Ph. Attender: Merlene Sadler [facility] Medical 12/03/2019 12:00:00 AM EDT [facility] ([facility]) Merlene Sadler, [employer]: [address], [place] [address], Ph. Attender: Merlene Sadler [facility] Medical 12/03/2019 12:00:00 AM EDT [facility] ([facility]) Merlene Sadler, [employer]: [address], [place] [address], Ph. Attender: Merlene Sadler [facility] Medical 12/03/2019 12:00:00 AM EDT [facility] ([facility]) Merlene Sadler [employer]: [address], [address], [place] [address], Ph. Attender: Merlene Sadler [facility] Medical 12/03/2019 12:00:00 AM EDT [facility] ([facility]) Merlene Sadler, [employer]: [address], [place] [address], Ph. Attender: Merlene Sadler [facility] Medical 12/03/2019 12:00:00 AM EDT [facility] ([facility]) Merlene Sadler [employer]: [address], [place] [address], Ph. Attender: Merlene Sadler [facility] Medical 12/03/2019 12:00:00 AM EDT [facility] ([facility]) Merlene Sadler, [employer]: [address], [place] [address], Ph. Attender: Merlene Sadler [facility] Medical 12/03/2019 12:00:00 AM EDT [facility] ([facility]) Merlene Sadler, [employer]: [address], [address], [place] [address], Ph. Attender: Merlene Sadler [facility] Medical 11/26/2019 12:00:00 AM EDT [facility] ([facility]) Merlene Sadler, [employer]: [address], [address], [place] [address], Ph. Attender: Merlene Sadler [facility] Medical 11/26/2019 12:00:00 AM EDT [facility] ([facility]) Merlene Sadler, [employer]: [address], [place] [address], Ph. Attender: Merlene Sadler [facility] Medical 11/26/2019 12:00:00 AM EDT [facility] ([facility]) Merlene Sadler, [employer]: [address], [place] [address], Ph. Attender: Merlene Sadler [facility] Medical 11/26/2019 12:00:00 AM EDT [facility] ([facility]) Merlene Sadler, [employer]: [address], [place] [address], Ph. Attender: Merlene Sadler [facility] Medical 11/26/2019 12:00:00 AM EDT [facility] ([facility]) Merlene Sadler, [employer]: [address], [place] [address], Ph. Attender: Merlene Sadler [facility] Medical 11/26/2019 12:00:00 AM EDT [facility] ([facility]) Merlene Sadler, [facility]: [address], [address], [place] [address], Ph. Attender: Merlene Sadler [facility] Medical 11/26/2019 12:00:00 AM EDT [facility] ([facility]) Merlene Sadler, [employer]: [address], [place] [address], Ph. Attender: Merlene Sadler [facility] Medical 11/26/2019 12:00:00 AM EDT [facility] ([facility]) Merlene Sadler, [facility]: [address], [address], [place] [address], Ph. Attender: Merlene Sadler [facility] Medical 11/26/2019 12:00:00 AM EDT [facility] ([facility]) Merlene Sadler, [facility]: [address], [address], [place] [address], Ph. Attender: Merlene Sadler [facility] Medical 11/26/2019 12:00:00 AM EDT [facility] ([facility]) Merlene Sadler, [facility]: [address], [address], [place] [address], Ph. Attender: Merlene Sadler [facility] Medical 11/26/2019 12:00:00 AM EDT [facility] ([facility]) Merlene Sadler, [facility]: [address], [address], [place] [address], Ph. Attender: Merlene Sadler [facility] Medical 11/26/2019 12:00:00 AM EDT [facility] ([facility]) Merlene Sadler [employer]: [address], [place] [address], Ph. Attender: Merlene Sadler [facility] Medical 11/26/2019 12:00:00 AM EDT [facility] ([facility]) Merlene Sadler, [employer]: [address], [place] [address], Ph. Attender: Merlene Sadler [facility] Medical 11/26/2019 12:00:00 AM EDT [facility] ([facility]) Merlene Sadler, [employer]: [address], [place] [address], Ph. Attender: Merlene Sadler [facility] Medical 11/26/2019 12:00:00 AM EDT [facility] ([facility]) Merlene Sdaler, [employer]: [address], [place] [address], Ph. Attender: Merlene Sadler [facility] Medical 11/26/2019 12:00:00 AM EDT [facility] ([facility]) Merlene Sadler, [employer]: [address], [place] [address], Ph. Attender: Merlene Sadler [facility] Medical 11/26/2019 12:00:00 AM EDT [facility] ([facility]) Merlene Sadler, [employer]: [address], [place] [address], Ph. Attender: Merlene Sadler [facility] Medical 11/26/2019 12:00:00 AM EDT [facility] ([facility]) Merlene Sadler, [employer]: [address], [place] [address], Ph. Attender: Merlene Sadler [facility] Medical 11/26/2019 12:00:00 AM EDT [facility] ([facility]) Merlene Sadler, [employer]: [address], [place] [address], Ph. Attender: Merlene Sadler [facility] Medical 11/26/2019 12:00:00 AM EDT [facility] ([facility]) Merlene Sadler, [employer]: [address], [place] [address], Ph. Attender: Merlene Sadler [facility] Medical 11/26/2019 12:00:00 AM EDT [facility] ([facility]) Merlene Sadler, [employer]: [address], [place] [address], Ph. Attender: Merlene Sadler [facility] Medical 11/26/2019 12:00:00 AM EDT [facility] ([facility]) Merlene Sadler, [employer]: [address], [place] [address], Ph. Attender: Merlene Sadler [facility] Medical 11/26/2019 12:00:00 AM EDT [facility] ([facility]) Merlene Sadler, [employer]: [address], [place] [address], Ph. Attender: Merlene Sadler [facility] Medical 11/26/2019 12:00:00 AM EDT [facility] ([facility]) Merlene Sadler, [facility]: [address], [place] [address], Ph. Attender: Merlene Sadler [facility] Medical 11/26/2019 12:00:00 AM EDT [facility] ([facility]) Merlene Sadler [employer]: [address], [place] [address], Ph. Attender: Merlene Sadler [facility] Medical 11/26/2019 12:00:00 AM EDT [facility] ([facility]) Merlene Sadler, [facility]: [address], [place] [address], Ph. Attender: Merlene Sadler [facility] Medical 11/26/2019 12:00:00 AM EDT [facility] ([facility]) Merlene Sadler, [facility]: [address], [place] [address], Ph. Attender: Merlene Sadler [facility] Medical 11/26/2019 12:00:00 AM EDT [facility] ([facility]) Merlene Sadler [facility]: [address], [place] [address], Ph. Attender: Merlene Sadler [facility] Medical 11/26/2019 12:00:00 AM EDT [facility] ([facility]) Merlene Sadler, [facility]: [address], [place] [address], Ph. Attender: Merlene Sadler [facility] Medical 11/26/2019 12:00:00 AM EDT [facility] ([facility]) Merlene Sadler, [employer]: [address], [place] [address], Ph. Attender: Merlene Sadler [facility] Medical 11/26/2019 12:00:00 AM EDT [facility] ([facility]) Merlene Sadler, [employer]: [address], [place] [address], Ph. Attender: Merlene Sadler [facility] Medical 11/26/2019 12:00:00 AM EDT [facility] ([facility]) Merlene Sadler, [employer]: [address], [place] [address], Ph. Attender: Merlene Sadler [facility] Medical 11/26/2019 12:00:00 AM EDT [facility] ([facility]) Merlene Sadler, [employer]: [address], [place] [address], Ph. Attender: Merlene Sadler [facility] Medical 11/26/2019 12:00:00 AM EDT [facility] ([facility]) Merlene Sadler, [facility]: [address], [place] [address], Ph. Attender: Merlene Sadler [facility] Medical 11/26/2019 12:00:00 AM EDT [facility] ([facility]) Merlene Sadler, [employer]: [address], [place] [address], Ph. Attender: Merlene Sadler [facility] Medical 11/26/2019 12:00:00 AM EDT [facility] ([facility]) Merlene Sadler [facility]: [address], [place] [address], Ph. Attender: Merlene Sadler [facility] Medical 11/26/2019 12:00:00 AM EDT [facility] ([facility]) Merlene Sadler, [facility]: [address], [place] [address], Ph. Attender: Merlene Sadler [facility] Medical 11/26/2019 12:00:00 AM EDT [facility] ([facility]) Merlene Sadler, [facility]: [address], [place] [address], Ph. Attender: Merlene Sadler [facility] Medical 11/26/2019 12:00:00 AM EDT [facility] ([facility]) Merlene Sadler, [facility]: [address], [place] [address], Ph. Attender: Merlene Sadler [facility] Medical 11/26/2019 12:00:00 AM EDT [facility] ([facility]) Outpatient Attender: TERRY QUIROGA [facility] 11/13/2019 08:31:03 AM EDT [facility] Outpatient Attender: TERRY QUIROGA [facility] 10/28/2019 04:06:01 PM EDT [facility] Outpatient Attender: TERRY QUIROGA [facility]PA[facility] 10/28/2019 08:58:02 AM EDT [facility] Outpatient Attender: TERRY QUIROGA [facility] 10/28/2019 08:58:02 AM EDT [facility] Outpatient Attender: TERRY QUIROGA [facility]PA[facility] 2019 08:16:01 AM EDT [facility] Outpatient Attender: TERRY QUIROGA [facility]PA[facility] 10/14/2019 04:14:00 PM EDT [facility] Outpatient Attender: TERRY QUIROGA [facility] 10/14/2019 09:02:02 AM EDT [facility] Outpatient Attender: TERRY QUIROGA [facility] 10/10/2019 02:32:00 PM EDT [facility] Outpatient Attender: TERRY QUIROGA [facility] 10/10/2019 02:32:00 PM EDT [facility] Outpatient Attender: TERRY QUIROGA [facility] 10/06/2019 03:39:01 PM EDT [facility] Outpatient Attender: TERRY QUIROGA [facility] 10/06/2019 08:14:02 AM EDT [facility] Outpatient Attender: TERRY QUIROGA [facility] 09/30/2019 10:06:04 AM EDT [facility] Immunizations Vaccine Date Status Description Data Source(s) COVID-19, mRNA, LNP-S, PF, 30 mcg/0.3 mL dose 08/12/2020 11: 30:57 AM EDT completed .3 mL [facility]) COVID-19, mRNA, LNP-S, PF, 30 mcg/0.3 mL dose 08/12/2020 11: 30:57 AM EDT completed .3 mL [facility]) COVID-19, mRNA, LNP-S, PF, 30 mcg/0.3 mL dose 08/12/2020 11: 30:57 AM EDT completed .3 mL [facility]) COVID-19, mRNA, LNP-S, PF, 30 mcg/0.3 mL dose 08/12/2020 11: 30:57 AM EDT completed .3 mL [facility]) COVID-19, mRNA, LNP-S, PF, 30 mcg/0.3 mL dose 08/12/2020 11: 30:57 AM EDT completed .3 mL [facility]) COVID-19, mRNA, LNP-S, PF, 30 mcg/0.3 mL dose 08/12/2020 11: 30:57 AM EDT completed .3 mL [facility] ([facility]) COVID-19, mRNA, LNP-S, PF, 30 mcg/0.3 mL dose 08/12/2020 11: 30:57 AM EDT completed .3 mL [facility] ([facility]) COVID-19, mRNA, LNP-S, PF, 30 mcg/0.3 mL dose 08/12/2020 11: 30:57 AM EDT completed .3 mL [facility] ([facility]) COVID-19, mRNA, LNP-S, PF, 30 mcg/0.3 mL dose 08/12/2020 11: 30:57 AM EDT completed .3 mL [facility] ([facility]) COVID-19, mRNA, LNP-S, PF, 30 mcg/0.3 mL dose 08/12/2020 11: 30:57 AM EDT completed .3 mL [facility] ([facility]) COVID-19, mRNA, LNP-S, PF, 30 mcg/0.3 mL dose 08/12/2020 11: 30:57 AM EDT completed .3 mL [facility] ([facility]) COVID-19 VACCINE Pfizer 08/12/2020 12:00:00 AM EDT completed [employer] Vaccine Series Complete: YESThis Data wa s Submitted to [facility] Via [employer]. COVID-19, mRNA, LNP-S, PF, 30 mcg/0.3 mL dose 07/22/2020 06: 41:28 PM EDT completed .3 mL [facility] ([facility]) COVID-19, mRNA, LNP-S, PF, 30 mcg/0.3 mL dose 07/22/2020 06: 41:28 PM EDT completed .3 mL [facility] ([facility]) COVID-19, mRNA, LNP-S, PF, 30 mcg/0.3 mL dose 07/22/2020 06: 41:28 PM EDT completed .3 mL [facility] ([facility]) COVID-19, mRNA, LNP-S, PF, 30 mcg/0.3 mL dose 07/22/2020 06: 41:28 PM EDT completed .3 mL [facility] ([facility]) COVID-19, mRNA, LNP-S, PF, 30 mcg/0.3 mL dose 07/22/2020 06: 41:28 PM EDT completed .3 mL [facility] ([facility]) COVID-19, mRNA, LNP-S, PF, 30 mcg/0.3 mL dose 07/22/2020 06: 41:28 PM EDT completed .3 mL [facility] ([facility]) COVID-19, mRNA, LNP-S, PF, 30 mcg/0.3 mL dose 07/22/2020 06: 41:28 PM EDT completed .3 mL [facility] ([facility]) COVID-19, mRNA, LNP-S, PF, 30 mcg/0.3 mL dose 07/22/2020 06: 41:28 PM EDT completed .3 mL [facility] ([facility]) COVID-19, mRNA, LNP-S, PF, 30 mcg/0.3 mL dose 07/22/2020 06: 41:28 PM EDT completed .3 mL SAYNER ([facility]) COVID-19, mRNA, LNP-S, PF, 30 mcg/0.3 mL dose 07/22/2020 06: 41:28 PM EDT completed .3 mL HILDA ([facility]) COVID-19, mRNA, LNP-S, PF, 30 mcg/0.3 mL dose 07/22/2020 06: 41:28 PM EDT completed .3 mL SAYNER ([facility]) COVID-19, mRNA, LNP-S, PF, 30 mcg/0.3 mL dose 07/22/2020 06: 41:28 PM EDT completed .3 mL HILDA ([facility]) COVID-19, mRNA, LNP-S, PF, 30 mcg/0.3 mL dose 07/22/2020 06: 41:28 PM EDT completed .3 mL HILDA ([facility]) COVID-19, mRNA, LNP-S, PF, 30 mcg/0.3 mL dose 07/22/2020 06: 41:28 PM EDT completed .3 mL SAYNER ([facility]) COVID-19 VACCINE Pfizer 07/22/2020 12:00:00 AM EDT completed [facility] Vaccine Series Complete: NOThis Data was Submitted to [facility] Via [employer]. Medications Medication Brand Name Start Date Product Form Dose Route Admi nistrative Instructions Pharmacy Instructions Status Indications Reaction Description Data Source(s) Naproxen 250 MG Oral Tablet Naproxen 05/20/2020 12:00:00 AM EDT ORAL active MEDENT ([facility], ) Amoxicillin 875 MG / Clavulanate 125 MG Oral Tablet amoxicillin 875 mg-potassium clavulanate 125 mg tablet TAKE 1 TABLET BY MOUTH TWICE DAILY amoxicillin 875 mg- potassium clavulanate 125 mg tablet TAKE 1 TABLET BY MOUTH TWICE DAILY 04/02/2020 12:00:00 AM EST completed amoxicillin 875 MG / clavulanate 125 MG Oral Tablet SAYNER ([facility]) Amoxicillin 875 MG / Clavulanate 125 MG Oral Tablet amoxicillin 875 mg-potassium clavulanate 125 mg tablet TAKE 1 TABLET BY MOUTH TWICE DAILY amoxicillin 875 mg- potassium clavulanate 125 mg tablet TAKE 1 TABLET BY MOUTH TWICE DAILY 04/02/2020 12:00:00 AM EST completed amoxicillin 875 MG / clavulanate 125 MG Oral Tablet SAYNER ([facility]) Amoxicillin 875 MG / Clavulanate 125 MG Oral Tablet amoxicillin 875 mg-potassium clavulanate 125 mg tablet TAKE 1 TABLET BY MOUTH TWICE DAILY amoxicillin 875 mg- potassium clavulanate 125 mg tablet TAKE 1 TABLET BY MOUTH TWICE DAILY 04/02/2020 12:00:00 AM EST completed amoxicillin 875 MG / clavulanate 125 MG Oral Tablet HILDA ([facility]) Amoxicillin 875 MG / Clavulanate 125 MG Oral Tablet amoxicillin 875 mg-potassium clavulanate 125 mg tablet TAKE 1 TABLET BY MOUTH TWICE DAILY amoxicillin 875 mg- potassium clavulanate 125 mg tablet TAKE 1 TABLET BY MOUTH TWICE DAILY 04/02/2020 12:00:00 AM EST completed amoxicillin 875 MG / clavulanate 125 MG Oral Tablet HILDA ([facility]) Amoxicillin 875 MG / Clavulanate 125 MG Oral Tablet amoxicillin 875 mg-potassium clavulanate 125 mg tablet TAKE 1 TABLET BY MOUTH TWICE DAILY amoxicillin 875 mg- potassium clavulanate 125 mg tablet TAKE 1 TABLET BY MOUTH TWICE DAILY 04/02/2020 12:00:00 AM EST completed amoxicillin 875 MG / clavulanate 125 MG Oral Tablet HILDA ([facility]) Amoxicillin 875 MG / Clavulanate 125 MG Oral Tablet amoxicillin 875 mg-potassium clavulanate 125 mg tablet TAKE 1 TABLET BY MOUTH TWICE DAILY amoxicillin 875 mg- potassium clavulanate 125 mg tablet TAKE 1 TABLET BY MOUTH TWICE DAILY 04/02/2020 12:00:00 AM EST completed amoxicillin 875 MG / clavulanate 125 MG Oral Tablet HILDA ([facility]) Amoxicillin 875 MG / Clavulanate 125 MG Oral Tablet amoxicillin 875 mg-potassium clavulanate 125 mg tablet TAKE 1 TABLET BY MOUTH TWICE DAILY amoxicillin 875 mg- potassium clavulanate 125 mg tablet TAKE 1 TABLET BY MOUTH TWICE DAILY 04/02/2020 12:00:00 AM EST completed amoxicillin 875 MG / clavulanate 125 MG Oral Tablet HILDA ([facility]) Amoxicillin 875 MG / Clavulanate 125 MG Oral Tablet amoxicillin 875 mg-potassium clavulanate 125 mg tablet TAKE 1 TABLET BY MOUTH TWICE DAILY amoxicillin 875 mg- potassium clavulanate 125 mg tablet TAKE 1 TABLET BY MOUTH TWICE DAILY 04/02/2020 12:00:00 AM EST completed amoxicillin 875 MG / clavulanate 125 MG Oral Tablet HILDA ([facility]) Amoxicillin 875 MG / Clavulanate 125 MG Oral Tablet amoxicillin 875 mg-potassium clavulanate 125 mg tablet TAKE 1 TABLET BY MOUTH TWICE DAILY amoxicillin 875 mg- potassium clavulanate 125 mg tablet TAKE 1 TABLET BY MOUTH TWICE DAILY 04/02/2020 12:00:00 AM EST completed amoxicillin 875 MG / clavulanate 125 MG Oral Tablet HILDA ([facility]) Amoxicillin 875 MG / Clavulanate 125 MG Oral Tablet amoxicillin 875 mg-potassium clavulanate 125 mg tablet TAKE 1 TABLET BY MOUTH TWICE DAILY amoxicillin 875 mg- potassium clavulanate 125 mg tablet TAKE 1 TABLET BY MOUTH TWICE DAILY 04/02/2020 12:00:00 AM EST completed amoxicillin 875 MG / clavulanate 125 MG Oral Tablet HILDA ([facility]) Amoxicillin 875 MG / Clavulanate 125 MG Oral Tablet amoxicillin 875 mg-potassium clavulanate 125 mg tablet TAKE 1 TABLET BY MOUTH TWICE DAILY amoxicillin 875 mg- potassium clavulanate 125 mg tablet TAKE 1 TABLET BY MOUTH TWICE DAILY 04/02/2020 12:00:00 AM EST completed amoxicillin 875 MG / clavulanate 125 MG Oral Tablet HILDA ([facility]) Amoxicillin 875 MG / Clavulanate 125 MG Oral Tablet amoxicillin 875 mg-potassium clavulanate 125 mg tablet TAKE 1 TABLET BY MOUTH TWICE DAILY amoxicillin 875 mg- potassium clavulanate 125 mg tablet TAKE 1 TABLET BY MOUTH TWICE DAILY 04/02/2020 12:00:00 AM EST completed amoxicillin 875 MG / clavulanate 125 MG Oral Tablet HILDA ([facility]) Amoxicillin 875 MG / Clavulanate 125 MG Oral Tablet amoxicillin 875 mg-potassium clavulanate 125 mg tablet TAKE 1 TABLET BY MOUTH TWICE DAILY amoxicillin 875 mg- potassium clavulanate 125 mg tablet TAKE 1 TABLET BY MOUTH TWICE DAILY 04/02/2020 12:00:00 AM EST completed amoxicillin 875 MG / clavulanate 125 MG Oral Tablet HILDA ([facility]) Amoxicillin 875 MG / Clavulanate 125 MG Oral Tablet amoxicillin 875 mg-potassium clavulanate 125 mg tablet TAKE 1 TABLET BY MOUTH TWICE DAILY amoxicillin 875 mg- potassium clavulanate 125 mg tablet TAKE 1 TABLET BY MOUTH TWICE DAILY 04/02/2020 12:00:00 AM EST completed amoxicillin 875 MG / clavulanate 125 MG Oral Tablet HILDA ([facility]) Amoxicillin 875 MG / Clavulanate 125 MG Oral Tablet amoxicillin 875 mg-potassium clavulanate 125 mg tablet TAKE 1 TABLET BY MOUTH TWICE DAILY amoxicillin 875 mg- potassium clavulanate 125 mg tablet TAKE 1 TABLET BY MOUTH TWICE DAILY 04/02/2020 12:00:00 AM EST completed amoxicillin 875 MG / clavulanate 125 MG Oral Tablet HILDA ([facility]) Amoxicillin 875 MG / Clavulanate 125 MG Oral Tablet amoxicillin 875 mg-potassium clavulanate 125 mg tablet TAKE 1 TABLET BY MOUTH TWICE DAILY amoxicillin 875 mg- potassium clavulanate 125 mg tablet TAKE 1 TABLET BY MOUTH TWICE DAILY 04/02/2020 12:00:00 AM EST completed amoxicillin 875 MG / clavulanate 125 MG Oral Tablet HILDA ([facility]) Amoxicillin 875 MG / Clavulanate 125 MG Oral Tablet amoxicillin 875 mg-potassium clavulanate 125 mg tablet TAKE 1 TABLET BY MOUTH TWICE DAILY amoxicillin 875 mg- potassium clavulanate 125 mg tablet TAKE 1 TABLET BY MOUTH TWICE DAILY 04/02/2020 12:00:00 AM EST completed amoxicillin 875 MG / clavulanate 125 MG Oral Tablet HILDA ([facility]) Amoxicillin 875 MG / Clavulanate 125 MG Oral Tablet amoxicillin 875 mg-potassium clavulanate 125 mg tablet TAKE 1 TABLET BY MOUTH TWICE DAILY amoxicillin 875 mg- potassium clavulanate 125 mg tablet TAKE 1 TABLET BY MOUTH TWICE DAILY 04/02/2020 12:00:00 AM EST completed amoxicillin 875 MG / clavulanate 125 MG Oral Tablet HILDA ([facility]) Amoxicillin 875 MG / Clavulanate 125 MG Oral Tablet amoxicillin 875 mg-potassium clavulanate 125 mg tablet TAKE 1 TABLET BY MOUTH TWICE DAILY amoxicillin 875 mg- potassium clavulanate 125 mg tablet TAKE 1 TABLET BY MOUTH TWICE DAILY 04/02/2020 12:00:00 AM EST completed amoxicillin 875 MG / clavulanate 125 MG Oral Tablet HILDA ([facility]) Amoxicillin 875 MG / Clavulanate 125 MG Oral Tablet amoxicillin 875 mg-potassium clavulanate 125 mg tablet TAKE 1 TABLET BY MOUTH TWICE DAILY amoxicillin 875 mg- potassium clavulanate 125 mg tablet TAKE 1 TABLET BY MOUTH TWICE DAILY 04/02/2020 12:00:00 AM EST completed amoxicillin 875 MG / clavulanate 125 MG Oral Tablet HILDA ([facility]) Amoxicillin 875 MG / Clavulanate 125 MG Oral Tablet amoxicillin 875 mg-potassium clavulanate 125 mg tablet TAKE 1 TABLET BY MOUTH TWICE DAILY amoxicillin 875 mg- potassium clavulanate 125 mg tablet TAKE 1 TABLET BY MOUTH TWICE DAILY 04/02/2020 12:00:00 AM EST completed amoxicillin 875 MG / clavulanate 125 MG Oral Tablet HILDA ([facility]) Amoxicillin 875 MG / Clavulanate 125 MG Oral Tablet amoxicillin 875 mg-potassium clavulanate 125 mg tablet TAKE 1 TABLET BY MOUTH TWICE DAILY amoxicillin 875 mg- potassium clavulanate 125 mg tablet TAKE 1 TABLET BY MOUTH TWICE DAILY 04/02/2020 12:00:00 AM EST completed amoxicillin 875 MG / clavulanate 125 MG Oral Tablet HILDA ([facility]) Amoxicillin 875 MG / Clavulanate 125 MG Oral Tablet amoxicillin 875 mg-potassium clavulanate 125 mg tablet TAKE 1 TABLET BY MOUTH TWICE DAILY amoxicillin 875 mg- potassium clavulanate 125 mg tablet TAKE 1 TABLET BY MOUTH TWICE DAILY 04/02/2020 12:00:00 AM EST completed amoxicillin 875 MG / clavulanate 125 MG Oral Tablet SAYNER ([facility]) atorvastatin 20 MG Oral Tablet Atorvastatin Calcium 01/10/2020 1 2:00:00 AM EST ORAL active MEDENT ( [facility]) cetirizine hydrochloride 10 MG Oral Tablet Cetirizine HCL 01/06/2020 12:00:00 AM EST ORAL active MEDENT ([facility] Lorazepam 1 MG Oral Tablet Lorazepam 01/06/2020 12:00:00 AM EST ORAL active MEDENT ([facility]) Escitalopram 20 MG Oral Tablet Escitalopram Oxalate 01/06/2020 1 2:00:00 AM EST ORAL active MEDENT ( [facility]) Trazodone Hydrochloride 50 MG Oral Tablet Trazodone HCL 01/06/2020 12:00:00 AM EST ORAL active MEDENT ([facility]) Hydroxyzine Hydrochloride 25 MG Oral Tablet Hydroxyzine HCL 01/06/2020 12:00:00 AM EST ORAL active MEDENT ([facility]) Omeprazole 20 MG Delayed Release Oral Capsule Omeprazole 01/06/2020 12:00:00 AM EST ORAL active MEDENT ([facility]) Escitalopram 10 MG Oral Tablet [Lexapro] Lexapro 10 mg tablet take one tablet po daily Lexapro 10 mg tablet take one tablet po daily 10/28/2019 12: 00:00 AM EDT completed escitalopram 1 0 MG Oral Tablet [Lexapro] HILDA ([facility]) Escitalopram 10 MG Oral Tablet [Lexapro] Lexapro 10 mg tablet take one tablet po daily Lexapro 10 mg tablet take one tablet po daily 10/28/2019 12: 00:00 AM EDT completed escitalopram 1 0 MG Oral Tablet [Lexapro] HILDA ([facility]) Escitalopram 10 MG Oral Tablet [Lexapro] Lexapro 10 mg tablet take one tablet po daily Lexapro 10 mg tablet take one tablet po daily 10/28/2019 12: 00:00 AM EDT completed escitalopram 1 0 MG Oral Tablet [Lexapro] HILDA ([facility]) Escitalopram 10 MG Oral Tablet [Lexapro] Lexapro 10 mg tablet take one tablet po daily Lexapro 10 mg tablet take one tablet po daily 10/28/2019 12: 00:00 AM EDT completed escitalopram 1 0 MG Oral Tablet [Lexapro] HILDA ([facility]) Escitalopram 10 MG Oral Tablet [Lexapro] Lexapro 10 mg tablet take one tablet po daily Lexapro 10 mg tablet take one tablet po daily 10/28/2019 12: 00:00 AM EDT completed escitalopram 1 0 MG Oral Tablet [Lexapro] HILDA ([facility]) Escitalopram 10 MG Oral Tablet [Lexapro] Lexapro 10 mg tablet take one tablet po daily Lexapro 10 mg tablet take one tablet po daily 10/28/2019 12: 00:00 AM EDT completed escitalopram 1 0 MG Oral Tablet [Lexapro] HILDA ([facility]) Escitalopram 10 MG Oral Tablet [Lexapro] Lexapro 10 mg tablet take one tablet po daily Lexapro 10 mg tablet take one tablet po daily 10/28/2019 12: 00:00 AM EDT completed escitalopram 1 0 MG Oral Tablet [Lexapro] HILDA ([facility]) Escitalopram 10 MG Oral Tablet [Lexapro] Lexapro 10 mg tablet take one tablet po daily Lexapro 10 mg tablet take one tablet po daily 10/28/2019 12: 00:00 AM EDT completed escitalopram 1 0 MG Oral Tablet [Lexapro] HILDA ([facility]) Escitalopram 10 MG Oral Tablet [Lexapro] Lexapro 10 mg tablet take one tablet po daily Lexapro 10 mg tablet take one tablet po daily 10/28/2019 12: 00:00 AM EDT completed escitalopram 1 0 MG Oral Tablet [Lexapro] HILDA ([facility]) Escitalopram 10 MG Oral Tablet [Lexapro] Lexapro 10 mg tablet take one tablet po daily Lexapro 10 mg tablet take one tablet po daily 10/28/2019 12: 00:00 AM EDT completed escitalopram 1 0 MG [facility] 10 MG Oral Tablet [Lexapro] Lexapro 10 mg tablet take one tablet po daily Lexapro 10 mg tablet take one tablet po daily 10/28/2019 12: 00:00 AM EDT completed escitalopram 1 0 MG Oral Tablet [Lexapro] [facility]) Escitalopram 10 MG Oral Tablet [Lexapro] Lexapro 10 mg tablet take one tablet po daily Lexapro 10 mg tablet take one tablet po daily 10/28/2019 12: 00:00 AM EDT completed escitalopram 1 0 MG Oral Tablet [Lexapro] HILDA ([facility]) Escitalopram 10 MG Oral Tablet [Lexapro] Lexapro 10 mg tablet take one tablet po daily Lexapro 10 mg tablet take one tablet po daily 10/28/2019 12: 00:00 AM EDT completed escitalopram 1 0 MG Oral Tablet [Lexapro] HILDA ([facility]) Escitalopram 10 MG Oral Tablet [Lexapro] Lexapro 10 mg tablet take one tablet po daily Lexapro 10 mg tablet take one tablet po daily 10/28/2019 12: 00:00 AM EDT completed escitalopram 1 0 MG Oral Tablet [Lexapro] HILDA ([facility]) Escitalopram 10 MG Oral Tablet [Lexapro] Lexapro 10 mg tablet take one tablet po daily Lexapro 10 mg tablet take one tablet po daily 10/28/2019 12: 00:00 AM EDT completed escitalopram 1 0 MG Oral Tablet [Lexapro] HILDA ([facility]) Escitalopram 10 MG Oral Tablet [Lexapro] Lexapro 10 mg tablet take one tablet po daily Lexapro 10 mg tablet take one tablet po daily 10/28/2019 12: 00:00 AM EDT completed escitalopram 1 0 MG Oral Tablet [Lexapro] HILDA ([facility]) Escitalopram 10 MG Oral Tablet [Lexapro] Lexapro 10 mg tablet take one tablet po daily Lexapro 10 mg tablet take one tablet po daily 10/28/2019 12: 00:00 AM EDT completed escitalopram 1 0 MG Oral Tablet [Lexapro] HILDA ([facility]) Escitalopram 10 MG Oral Tablet [Lexapro] Lexapro 10 mg tablet take one tablet po daily Lexapro 10 mg tablet take one tablet po daily 10/28/2019 12: 00:00 AM EDT completed escitalopram 1 0 MG Oral Tablet [Lexapro] SAYNER ([facility]) Escitalopram 10 MG Oral Tablet [Lexapro] Lexapro 10 mg tablet take one tablet po daily Lexapro 10 mg tablet take one tablet po daily 10/28/2019 12: 00:00 AM EDT completed escitalopram 1 0 MG Oral Tablet [Lexapro] HILDA ([facility]) Escitalopram 10 MG Oral Tablet [Lexapro] Lexapro 10 mg tablet take one tablet po daily Lexapro 10 mg tablet take one tablet po daily 10/28/2019 12: 00:00 AM EDT completed escitalopram 1 0 MG Oral Tablet [Lexapro] HILDA ([facility]) Escitalopram 10 MG Oral Tablet [Lexapro] Lexapro 10 mg tablet take one tablet po daily Lexapro 10 mg tablet take one tablet po daily 10/28/2019 12: 00:00 AM EDT completed escitalopram 1 0 MG Oral Tablet [Lexapro] HILDA ([facility]) Escitalopram 10 MG Oral Tablet [Lexapro] Lexapro 10 mg tablet take one tablet po daily Lexapro 10 mg tablet take one tablet po daily 10/28/2019 12: 00:00 AM EDT completed escitalopram 1 0 MG Oral Tablet [Lexapro] HILDA ([facility]) Escitalopram 10 MG Oral Tablet [Lexapro] Lexapro 10 mg tablet take one tablet po daily Lexapro 10 mg tablet take one tablet po daily 10/28/2019 12: 00:00 AM EDT completed escitalopram 1 0 MG Oral Tablet [Lexapro] HILDA ([facility]) Escitalopram 10 MG Oral Tablet [Lexapro] Lexapro 10 mg tablet Take 1 tablet by mouth once daily Lexapro 10 mg tablet Take 1 tablet by mouth once daily 09/10/2019 12:00:00 AM EDT completed escitalopram 10 MG Oral Tablet [Lexapro] HILDA ([facility]) Escitalopram 10 MG Oral Tablet [Lexapro] Lexapro 10 mg tablet Take 1 tablet by mouth once daily Lexapro 10 mg tablet Take 1 tablet by mouth once daily 09/10/2019 12:00:00 AM EDT completed escitalopram 10 MG Oral Tablet [Lexapro] HILDA ([facility]) Trazodone Hydrochloride 50 MG Oral Table t trazodone 50 mg tablet TAKE 1 TABLET BY MOUTH ONCE DAILY AT BEDTIME trazodone 50 mg tablet TAKE 1 TABLET BY MOUTH ONCE DAILY AT BEDTIME completed trazodone hydrochloride 50 MG Oral Tablet HILDA ([facility]) Trazodone Hydrochloride 50 MG Oral Table t trazodone 50 mg tablet TAKE 1 TABLET BY MOUTH ONCE DAILY AT BEDTIME trazodone 50 mg tablet TAKE 1 TABLET BY MOUTH ONCE DAILY AT BEDTIME completed trazodone hydrochloride 50 MG Oral Tablet HILDA ([facility]) Hydroxyzine Hydrochloride 10 MG Oral Tab let hydroxyzine HCl 10 mg tablet TAKE 1 TO 2 TABLETS BY MOUTH EVERY 6 HOURS NEEDED hydroxyzine HCl 10 mg tablet TAKE 1 TO 2 TABLETS BY MOUTH EVERY 6 HOURS NEEDED completed hydroxyzine hydrochloride 10 MG Oral Tablet HILDA ([facility]) Trazodone Hydrochloride 50 MG Oral Table t trazodone 50 mg tablet TAKE 1 TABLET BY MOUTH ONCE DAILY AT BEDTIME trazodone 50 mg tablet TAKE 1 TABLET BY MOUTH ONCE DAILY AT BEDTIME completed trazodone hydrochloride 50 MG Oral Tablet HILDA ([facility]) Trazodone Hydrochloride 50 MG Oral Table t trazodone 50 mg tablet TAKE 1 TABLET BY MOUTH ONCE DAILY AT BEDTIME trazodone 50 mg tablet TAKE 1 TABLET BY MOUTH ONCE DAILY AT BEDTIME completed trazodone hydrochloride 50 MG Oral Tablet HILDA ([facility]) cetirizine hydrochloride 10 MG Oral Tabl et cetirizine 10 mg tablet TAKE 1 TABLET BY MOUTH ONCE DAILY cetirizine 10 mg tablet TAKE 1 TABLET BY MOUTH ONCE DA ANTHONY completed cetirizine hyd rochloride 10 MG Oral Tablet HILDA ([facility]) cetirizine hydrochloride 10 MG Oral Tabl et cetirizine 10 mg tablet TAKE 1 TABLET BY MOUTH ONCE DAILY cetirizine 10 mg tablet TAKE 1 TABLET BY MOUTH ONCE DA ANTHONY completed cetirizine hyd rochloride 10 MG Oral Tablet SAYNER ([facility]) Hydroxyzine Hydrochloride 10 MG Oral Tab let hydroxyzine HCl 10 mg tablet TAKE 1 TO 2 TABLETS BY MOUTH EVERY 6 HOURS NEEDED hydroxyzine HCl 10 mg tablet TAKE 1 TO 2 TABLETS BY MOUTH EVERY 6 HOURS NEEDED completed hydroxyzine hydrochloride 10 MG Oral Tablet SAYNER ([facility]) fluticasone propionate 50 mcg/actuation nasal spray,suspension [place] 1 spray every day by intranasal route as needed. [id number] 1 spray(s) completed fluticasone propionate 0.05 MG/ACTUAT Me tered Dose Nasal [place] SAYNER ([facility]) Trazodone Hydrochloride 50 MG Oral Table t trazodone 50 mg tablet TAKE 1 TABLET BY MOUTH ONCE DAILY AT BEDTIME trazodone 50 mg tablet TAKE 1 TABLET BY MOUTH ONCE DAILY AT BEDTIME completed trazodone hydrochloride 50 MG Oral Tablet HILDA ([facility]) Escitalopram 10 MG Oral Tablet escitalop yuko 10 mg tablet TAKE 1 TABLET BY MOUTH ONCE DAILY escitalopram 10 mg tablet TAKE 1 TABLET BY MOUTH ONCE DAILY completed escitalopram 10 MG Oral T ablet HILDA ([facility]) cetirizine hydrochloride 10 MG Oral Tabl et cetirizine 10 mg tablet TAKE 1 TABLET BY MOUTH ONCE DAILY cetirizine 10 mg tablet TAKE 1 TABLET BY MOUTH ONCE DA ANTHONY completed cetirizine hyd rochloride 10 MG Oral Tablet HILDA ([facility]) cetirizine hydrochloride 10 MG Oral Tabl et cetirizine 10 mg tablet TAKE 1 TABLET BY MOUTH ONCE DAILY cetirizine 10 mg tablet TAKE 1 TABLET BY MOUTH ONCE DA ANTHONY completed cetirizine hyd rochloride 10 MG Oral Tablet HILDA ([facility]) cetirizine hydrochloride 10 MG Oral Tabl et cetirizine 10 mg tablet TAKE 1 TABLET BY MOUTH ONCE DAILY cetirizine 10 mg tablet TAKE 1 TABLET BY MOUTH ONCE DA ANTHONY completed cetirizine hyd rochloride 10 MG Oral Tablet HILDA ([facility]) Hydroxyzine Hydrochloride 10 MG Oral Tab let hydroxyzine HCl 10 mg tablet TAKE 1 TO 2 TABLETS BY MOUTH EVERY 6 HOURS NEEDED hydroxyzine HCl 10 mg tablet TAKE 1 TO 2 TABLETS BY MOUTH EVERY 6 HOURS NEEDED completed hydroxyzine hydrochloride 10 MG Oral Tablet HILDA ([facility]) cetirizine hydrochloride 10 MG Oral Tabl et cetirizine 10 mg tablet TAKE 1 TABLET BY MOUTH ONCE DAILY cetirizine 10 mg tablet TAKE 1 TABLET BY MOUTH ONCE DA ANTHONY completed cetirizine hyd rochloride 10 MG Oral Tablet HILDA ([facility]) cetirizine hydrochloride 10 MG Oral Tabl et cetirizine 10 mg tablet TAKE 1 TABLET BY MOUTH ONCE DAILY cetirizine 10 mg tablet TAKE 1 TABLET BY MOUTH ONCE DA ANTHONY completed cetirizine hyd rochloride 10 MG Oral Tablet HILDA ([facility]) cetirizine hydrochloride 10 MG Oral Tabl et cetirizine 10 mg tablet TAKE 1 TABLET BY MOUTH ONCE DAILY cetirizine 10 mg tablet TAKE 1 TABLET BY MOUTH ONCE DA ANTHONY completed cetirizine hyd rochloride 10 MG Oral Tablet HILDA ([facility]) albuterol sulfate HFA 90 mcg/actuation a erosol inhaler INHALE 2 PUFFS BY MOUTH EVERY 4 HOURS NEEDED [id number] completed [id number] 200 ACTUAT albuterol 0.09 MG/ACTUAT Metered Dose Inhaler HILDA ([facility]) Trazodone Hydrochloride 50 MG Oral Table t trazodone 50 mg tablet TAKE 1 TABLET BY MOUTH ONCE DAILY AT BEDTIME trazodone 50 mg tablet TAKE 1 TABLET BY MOUTH ONCE DAILY AT BEDTIME completed [facility] hydrochloride [facility] Escitalopram 10 MG Oral Tablet escitalop yuko 10 mg tablet TAKE 1 TABLET BY MOUTH ONCE DAILY escitalopram 10 mg tablet TAKE 1 TABLET BY MOUTH ONCE DAILY completed escitalopram 10 MG Oral T ablet HILDA ([facility]) Trazodone Hydrochloride 50 MG Oral Table t trazodone 50 mg tablet TAKE 1 TABLET BY MOUTH ONCE DAILY AT BEDTIME trazodone 50 mg tablet TAKE 1 TABLET BY MOUTH ONCE DAILY AT BEDTIME completed trazodone hydrochloride 50 MG Oral Tablet [facility] ([facility]) Trazodone Hydrochloride 50 MG Oral Table t trazodone 50 mg tablet TAKE 1 TABLET BY MOUTH ONCE DAILY AT BEDTIME trazodone 50 mg tablet TAKE 1 TABLET BY MOUTH ONCE DAILY AT BEDTIME completed trazodone hydrochloride 50 MG Oral Tablet [facility] ([facility]) Hydroxyzine Hydrochloride 10 MG Oral Tab let hydroxyzine HCl 10 mg tablet TAKE 1 TO 2 TABLETS BY MOUTH EVERY 6 HOURS NEEDED hydroxyzine HCl 10 mg tablet TAKE 1 TO 2 TABLETS BY MOUTH EVERY 6 HOURS NEEDED completed hydroxyzine hydrochloride 10 MG Oral Tablet [facility]ILDA ([facility]) cetirizine hydrochloride 10 MG Oral Tabl et cetirizine 10 mg tablet TAKE 1 TABLET BY MOUTH ONCE DAILY cetirizine 10 mg tablet TAKE 1 TABLET BY MOUTH ONCE DA ANTHONY completed cetirizine hyd rochloride 10 MG Oral Tablet [facility]ILDA ([facility]) Escitalopram 10 MG Oral Tablet escitalop yuko 10 mg tablet TAKE 1 TABLET BY MOUTH ONCE DAILY escitalopram 10 mg tablet TAKE 1 TABLET BY MOUTH ONCE DAILY completed escitalopram 10 MG Oral T ablet HILDA ([facility]) cetirizine hydrochloride 10 MG Oral Tabl et cetirizine 10 mg tablet TAKE 1 TABLET BY MOUTH ONCE DAILY cetirizine 10 mg tablet TAKE 1 TABLET BY MOUTH ONCE DA ANTHONY completed cetirizine hyd rochloride 10 MG Oral Tablet [facility]ILDA ([facility]) Hydroxyzine Hydrochloride 10 MG Oral Tab let hydroxyzine HCl 10 mg tablet TAKE 1 TO 2 TABLETS BY MOUTH EVERY 6 HOURS NEEDED hydroxyzine HCl 10 mg tablet TAKE 1 TO 2 TABLETS BY MOUTH EVERY 6 HOURS NEEDED completed hydroxyzine hydrochloride 10 MG Oral Tablet HILDA ([facility]) Lorazepam 1 MG Oral Tablet lorazepam 1 m g tablet TAKE 1 TABLET BY MOUTH ONCE DAILY NEEDED . DO NOT EXCEED 1 PER 24 HOURS lorazepam 1 mg tablet TAKE 1 TABLET BY MOUTH ONCE DAILY NEEDED . DO NOT EXCEED 1 PER 24 HOURS completed lorazepam 1 MG Oral Tablet ATHEN A ([facility]) cetirizine hydrochloride 10 MG Oral Tabl et cetirizine 10 mg tablet TAKE 1 TABLET BY MOUTH ONCE DAILY cetirizine 10 mg tablet TAKE 1 TABLET BY MOUTH ONCE DA ANTHONY completed cetirizine hyd rochloride 10 MG Oral Tablet HIDLA ([facility]) cetirizine hydrochloride 10 MG Oral Tabl et cetirizine 10 mg tablet TAKE 1 TABLET BY MOUTH ONCE DAILY cetirizine 10 mg tablet TAKE 1 TABLET BY MOUTH ONCE DA ANTHONY completed cetirizine hyd rochloride 10 MG Oral Tablet HILDA ([facility]) Sumatriptan 25 MG Oral Tablet sumatripta n 25 mg tablet Take 1 tablet po at onset of migraine, repeat in 2 hrs if headache persists; MDD 2 tablets sumatriptan 25 mg tablet Take 1 tablet po at onset of migraine, repeat in 2 hrs if headache persists; MDD 2 tablets completed sumatriptan 25 MG Oral Tablet HILDA ([facility]) albuterol sulfate HFA 90 mcg/actuation a erosol inhaler INHALE 2 PUFFS BY MOUTH EVERY 4 HOURS NEEDED [id number] ACTUAT albuterol 0.09 MG/ACTUAT Metered Dose Inhaler SAYNER ([facility]) fluticasone propionate 50 mcg/actuation nasal spray,suspension [place] 1 spray every day by intranasal route as needed. [id number] 1 spray(s) completed fluticasone propionate 0.05 MG/ACTUAT Me tered Dose Nasal [place] SAYNER ([facility]) Trazodone Hydrochloride 50 MG Oral Table t trazodone 50 mg tablet TAKE 1 TABLET BY MOUTH ONCE DAILY AT BEDTIME trazodone 50 mg tablet TAKE 1 TABLET BY MOUTH ONCE DAILY AT BEDTIME completed trazodone hydrochloride 50 MG Oral Tablet SAYNER ([facility]) Trazodone Hydrochloride 50 MG Oral Table t trazodone 50 mg tablet TAKE 1 TABLET BY MOUTH ONCE DAILY AT BEDTIME trazodone 50 mg tablet TAKE 1 TABLET BY MOUTH ONCE DAILY AT BEDTIME completed trazodone hydrochloride 50 MG Oral Tablet HILDA ([facility]) Hydroxyzine Hydrochloride 25 MG Oral Tab let hydroxyzine HCl 25 mg tablet TAKE 1 TO 2 TABLETS BY MOUTH ONCE DAILY NEEDED hydroxyzine HCl 25 mg tablet TAKE 1 TO 2 TABLETS BY MOUTH ONCE DAILY NEEDED completed hydroxyzine hydrochloride 25 MG Oral Tablet HILDA ([facility]) Trazodone Hydrochloride 50 MG Oral Table t trazodone 50 mg tablet TAKE 1 TABLET BY MOUTH ONCE DAILY AT BEDTIME trazodone 50 mg tablet TAKE 1 TABLET BY MOUTH ONCE DAILY AT BEDTIME completed trazodone hydrochloride 50 MG Oral Tablet HILDA ([facility]) cetirizine hydrochloride 10 MG Oral Tabl et cetirizine 10 mg tablet TAKE 1 TABLET BY MOUTH ONCE DAILY cetirizine 10 mg tablet TAKE 1 TABLET BY MOUTH ONCE DA ANTHONY completed cetirizine hyd rochloride 10 MG Oral Tablet HILDA ([facility]) Trazodone Hydrochloride 50 MG Oral Table t trazodone 50 mg tablet TAKE 1 TABLET BY MOUTH ONCE DAILY AT BEDTIME trazodone 50 mg tablet TAKE 1 TABLET BY MOUTH ONCE DAILY AT BEDTIME completed trazodone hydrochloride 50 MG Oral Tablet HILDA ([facility]) Escitalopram 10 MG Oral Tablet escitalop yuko 10 mg tablet TAKE 1 TABLET BY MOUTH ONCE DAILY escitalopram 10 mg tablet TAKE 1 TABLET BY MOUTH ONCE DAILY completed escitalopram 10 MG Oral T ablet HILDA ([facility]) cetirizine hydrochloride 10 MG Oral Tabl et cetirizine 10 mg tablet TAKE 1 TABLET BY MOUTH ONCE DAILY cetirizine 10 mg tablet TAKE 1 TABLET BY MOUTH ONCE DA ANTHONY completed cetirizine hyd rochloride 10 MG Oral Tablet HILDA ([facility]) Trazodone Hydrochloride 50 MG Oral Table t trazodone 50 mg tablet TAKE 1 TABLET BY MOUTH ONCE DAILY AT BEDTIME trazodone 50 mg tablet TAKE 1 TABLET BY MOUTH ONCE DAILY AT BEDTIME completed trazodone hydrochloride 50 MG Oral Tablet HILDA ([facility]) Trazodone Hydrochloride 50 MG Oral Table t trazodone 50 mg tablet TAKE 1 TABLET BY MOUTH ONCE DAILY AT BEDTIME trazodone 50 mg tablet TAKE 1 TABLET BY MOUTH ONCE DAILY AT BEDTIME completed trazodone hydrochloride 50 MG Oral Tablet HILDA ([facility]) Lorazepam 1 MG Oral Tablet lorazepam 1 m g tablet TAKE 1 TABLET BY MOUTH ONCE DAILY NEEDED . DO NOT EXCEED 1 PER 24 HOURS lorazepam 1 mg tablet TAKE 1 TABLET BY MOUTH ONCE DAILY NEEDED . DO NOT EXCEED 1 PER 24 HOURS completed lorazepam 1 MG Oral Tablet ATHEN A ([facility]) Escitalopram 10 MG Oral Tablet escitalop yuko 10 mg tablet TAKE 1 TABLET BY MOUTH ONCE DAILY escitalopram 10 mg tablet TAKE 1 TABLET BY MOUTH ONCE DAILY completed escitalopram 10 MG Oral T ablet HILDA ([facility]) Hydroxyzine Hydrochloride 10 MG Oral Tab let hydroxyzine HCl 10 mg tablet TAKE 1 TO 2 TABLETS BY MOUTH EVERY 6 HOURS NEEDED hydroxyzine HCl 10 mg tablet TAKE 1 TO 2 TABLETS BY MOUTH EVERY 6 HOURS NEEDED completed hydroxyzine hydrochloride 10 MG Oral Tablet SAYNER ([facility]) Trazodone Hydrochloride 50 MG Oral Table t trazodone 50 mg tablet TAKE 1 TABLET BY MOUTH ONCE DAILY AT BEDTIME trazodone 50 mg tablet TAKE 1 TABLET BY MOUTH ONCE DAILY AT BEDTIME completed trazodone hydrochloride 50 MG Oral Tablet HILDA ([facility]) cetirizine hydrochloride 10 MG Oral Tabl et cetirizine 10 mg tablet TAKE 1 TABLET BY MOUTH ONCE DAILY cetirizine 10 mg tablet TAKE 1 TABLET BY MOUTH ONCE DA ANTHONY completed cetirizine hyd rochloride 10 MG Oral Tablet HILDA ([facility]) Hydroxyzine Hydrochloride 10 MG Oral Tab let hydroxyzine HCl 10 mg tablet TAKE 1 TO 2 TABLETS BY MOUTH EVERY 6 HOURS NEEDED hydroxyzine HCl 10 mg tablet TAKE 1 TO 2 TABLETS BY MOUTH EVERY 6 HOURS NEEDED completed hydroxyzine hydrochloride 10 MG Oral Tablet HILDA ([facility]) Hydroxyzine Hydrochloride 10 MG Oral Tab let hydroxyzine HCl 10 mg tablet TAKE 1 TO 2 TABLETS BY MOUTH EVERY 6 HOURS NEEDED hydroxyzine HCl 10 mg tablet TAKE 1 TO 2 TABLETS BY MOUTH EVERY 6 HOURS NEEDED completed hydroxyzine hydrochloride 10 MG Oral Tablet HILDA ([facility]) Omeprazole 20 MG Delayed Release Oral Ca psule omeprazole 20 mg capsule,delayed release TAKE 1 CAPSULE BY MOUTH IN THE MORNING ON AN EMPTY STOMACH omeprazole 20 mg capsule,delayed release TAKE 1 CAPSULE BY MOUTH IN THE MORNING ON AN EMPTY STOMACH completed omeprazole 20 MG Delayed Release Oral Capsule HILDA ([facility]) Escitalopram 10 MG Oral Tablet escitalop yuko 10 mg tablet TAKE 1 TABLET BY MOUTH ONCE DAILY escitalopram 10 mg tablet TAKE 1 TABLET BY MOUTH ONCE DAILY completed escitalopram 10 MG Oral T ablet HILDA ([facility]) Escitalopram 10 MG Oral Tablet escitalop yuko 10 mg tablet TAKE 1 TABLET BY MOUTH ONCE DAILY escitalopram 10 mg tablet TAKE 1 TABLET BY MOUTH ONCE DAILY completed escitalopram 10 MG Oral T ablet HILDA ([facility]) Trazodone Hydrochloride 50 MG Oral Table t trazodone 50 mg tablet TAKE 1 TABLET BY MOUTH ONCE DAILY AT BEDTIME trazodone 50 mg tablet TAKE 1 TABLET BY MOUTH ONCE DAILY AT BEDTIME completed trazodone hydrochloride 50 MG Oral Tablet HILDA ([facility]) cetirizine hydrochloride 10 MG Oral Tabl et cetirizine 10 mg tablet TAKE 1 TABLET BY MOUTH ONCE DAILY cetirizine 10 mg tablet TAKE 1 TABLET BY MOUTH ONCE DA ANTHONY completed cetirizine hyd rochloride 10 MG Oral Tablet HILDA ([facility]) cetirizine hydrochloride 10 MG Oral Tabl et cetirizine 10 mg tablet TAKE 1 TABLET BY MOUTH ONCE DAILY cetirizine 10 mg tablet TAKE 1 TABLET BY MOUTH ONCE DA ANTHONY completed cetirizine hyd rochloride 10 MG Oral Tablet HILDA ([facility]) Trazodone Hydrochloride 50 MG Oral Table t trazodone 50 mg tablet TAKE 1 TABLET BY MOUTH ONCE DAILY AT BEDTIME trazodone 50 mg tablet TAKE 1 TABLET BY MOUTH ONCE DAILY AT BEDTIME completed trazodone hydrochloride 50 MG Oral Tablet HILDA ([facility]) Trazodone Hydrochloride 50 MG Oral Table t trazodone 50 mg tablet TAKE 1 TABLET BY MOUTH ONCE DAILY AT BEDTIME trazodone 50 mg tablet TAKE 1 TABLET BY MOUTH ONCE DAILY AT BEDTIME completed trazodone hydrochloride 50 MG Oral Tablet HILDA ([facility]) Trazodone Hydrochloride 50 MG Oral Table t trazodone 50 mg tablet TAKE 1 TABLET BY MOUTH ONCE DAILY AT BEDTIME trazodone 50 mg tablet TAKE 1 TABLET BY MOUTH ONCE DAILY AT BEDTIME completed trazodone hydrochloride 50 MG Oral Tablet HILDA ([facility]) cetirizine hydrochloride 10 MG Oral Tabl et cetirizine 10 mg tablet TAKE 1 TABLET BY MOUTH ONCE DAILY cetirizine 10 mg tablet TAKE 1 TABLET BY MOUTH ONCE DA ANTHONY completed cetirizine hyd rochloride 10 MG Oral Tablet HILDA ([facility]) cetirizine hydrochloride 10 MG Oral Tabl et cetirizine 10 mg tablet TAKE 1 TABLET BY MOUTH ONCE DAILY cetirizine 10 mg tablet TAKE 1 TABLET BY MOUTH ONCE DA ANTHONY completed cetirizine hyd rochloride 10 MG Oral Tablet HILDA ([facility]) Trazodone Hydrochloride 50 MG Oral Table t trazodone 50 mg tablet TAKE 1 TABLET BY MOUTH ONCE DAILY AT BEDTIME trazodone 50 mg tablet TAKE 1 TABLET BY MOUTH ONCE DAILY AT BEDTIME completed trazodone hydrochloride 50 MG Oral Tablet SAYNER ([facility]) Omeprazole 20 MG Delayed Release Oral Ca psule omeprazole 20 mg capsule,delayed release TAKE 1 CAPSULE BY MOUTH IN THE MORNING ON AN EMPTY STOMACH omeprazole 20 mg capsule,delayed release TAKE 1 CAPSULE BY MOUTH IN THE MORNING ON AN EMPTY STOMACH completed omeprazole 20 MG Delayed Release Oral Capsule HILDA ([facility]) Trazodone Hydrochloride 50 MG Oral Table t trazodone 50 mg tablet TAKE 1 TABLET BY MOUTH ONCE DAILY AT BEDTIME trazodone 50 mg tablet TAKE 1 TABLET BY MOUTH ONCE DAILY AT BEDTIME completed trazodone hydrochloride 50 MG Oral Tablet HILDA ([facility]) Hydroxyzine Hydrochloride 10 MG Oral Tab let hydroxyzine HCl 10 mg tablet TAKE 1 TO 2 TABLETS BY MOUTH EVERY 6 HOURS NEEDED hydroxyzine HCl 10 mg tablet TAKE 1 TO 2 TABLETS BY MOUTH EVERY 6 HOURS NEEDED completed hydroxyzine hydrochloride 10 MG Oral Tablet HILDA ([facility]) cetirizine hydrochloride 10 MG Oral Tabl et cetirizine 10 mg tablet TAKE 1 TABLET BY MOUTH ONCE DAILY cetirizine 10 mg tablet TAKE 1 TABLET BY MOUTH ONCE DA ANTHONY completed cetirizine hyd rochloride 10 MG Oral Tablet HILDA ([facility]) Trazodone Hydrochloride 50 MG Oral Table t trazodone 50 mg tablet TAKE 1 TABLET BY MOUTH ONCE DAILY AT BEDTIME trazodone 50 mg tablet TAKE 1 TABLET BY MOUTH ONCE DAILY AT BEDTIME completed trazodone hydrochloride 50 MG Oral Tablet HILDA ([facility]) Escitalopram 10 MG Oral Tablet escitalop yuko 10 mg tablet TAKE 1 TABLET BY MOUTH ONCE DAILY escitalopram 10 mg tablet TAKE 1 TABLET BY MOUTH ONCE DAILY completed escitalopram 10 MG Oral T ablet HILDA ([facility]) Trazodone Hydrochloride 50 MG Oral Table t trazodone 50 mg tablet TAKE 1 TABLET BY MOUTH ONCE DAILY AT BEDTIME trazodone 50 mg tablet TAKE 1 TABLET BY MOUTH ONCE DAILY AT BEDTIME completed trazodone hydrochloride 50 MG Oral Tablet HILDA ([facility]) Trazodone Hydrochloride 50 MG Oral Table t trazodone 50 mg tablet TAKE 1 TABLET BY MOUTH ONCE DAILY AT BEDTIME trazodone 50 mg tablet TAKE 1 TABLET BY MOUTH ONCE DAILY AT BEDTIME completed trazodone hydrochloride 50 MG Oral Tablet SAYNER ([facility]) Sumatriptan 25 MG Oral Tablet sumatripta n 25 mg tablet Take 1 tablet po at onset of migraine, repeat in 2 hrs if headache persists; MDD 2 tablets sumatriptan 25 mg tablet Take 1 tablet po at onset of migraine, repeat in 2 hrs if headache persists; MDD 2 tablets completed sumatriptan 25 MG Oral Tablet SAYNER ([facility]) Hydroxyzine Hydrochloride 25 MG Oral Tab let hydroxyzine HCl 25 mg tablet TAKE 1 TO 2 TABLETS BY MOUTH ONCE DAILY NEEDED hydroxyzine HCl 25 mg tablet TAKE 1 TO 2 TABLETS BY MOUTH ONCE DAILY NEEDED completed hydroxyzine hydrochloride 25 MG Oral Tablet HILDA ([facility]) Hydroxyzine Hydrochloride 10 MG Oral Tab let hydroxyzine HCl 10 mg tablet TAKE 1 TO 2 TABLETS BY MOUTH EVERY 6 HOURS NEEDED hydroxyzine HCl 10 mg tablet TAKE 1 TO 2 TABLETS BY MOUTH EVERY 6 HOURS NEEDED completed hydroxyzine hydrochloride 10 MG Oral Tablet HILDA ([facility]) Escitalopram 10 MG Oral Tablet escitalop yuko 10 mg tablet TAKE 1 TABLET BY MOUTH ONCE DAILY escitalopram 10 mg tablet TAKE 1 TABLET BY MOUTH ONCE DAILY completed escitalopram 10 MG Oral T ablet HILDA ([facility]) Trazodone Hydrochloride 50 MG Oral Table t trazodone 50 mg tablet TAKE 1 TABLET BY MOUTH ONCE DAILY AT BEDTIME trazodone 50 mg tablet TAKE 1 TABLET BY MOUTH ONCE DAILY AT BEDTIME completed trazodone hydrochloride 50 MG Oral Tablet HILDA ([facility]) Escitalopram 10 MG Oral Tablet escitalop yuko 10 mg tablet TAKE 1 TABLET BY MOUTH ONCE DAILY escitalopram 10 mg tablet TAKE 1 TABLET BY MOUTH ONCE DAILY completed escitalopram 10 MG Oral T ablet HILDA ([facility]) Trazodone Hydrochloride 50 MG Oral Table t trazodone 50 mg tablet TAKE 1 TABLET BY MOUTH ONCE DAILY AT BEDTIME trazodone 50 mg tablet TAKE 1 TABLET BY MOUTH ONCE DAILY AT BEDTIME completed trazodone hydrochloride 50 MG Oral Tablet HILDA ([facility]) Trazodone Hydrochloride 50 MG Oral Table t trazodone 50 mg tablet TAKE 1 TABLET BY MOUTH ONCE DAILY AT BEDTIME trazodone 50 mg tablet TAKE 1 TABLET BY MOUTH ONCE DAILY AT BEDTIME completed trazodone hydrochloride 50 MG Oral Tablet HILDA ([facility]) cetirizine hydrochloride 10 MG Oral Tabl et cetirizine 10 mg tablet TAKE 1 TABLET BY MOUTH ONCE DAILY cetirizine 10 mg tablet TAKE 1 TABLET BY MOUTH ONCE DA ANTHONY completed cetirizine hyd rochloride 10 MG Oral Tablet SAYNER ([facility]) Insurance Providers Payer name Policy type / Coverage type Policy ID Covered green party ID Covered green party's relationship to mahajan Policy Maahjan Plan Information [employer] [id number] SP [id number] Sliding Fee Scale P None S No ne [facility] [id number] SP [id number] MEDICAID [id number] S [id number] MEDICAID [id number] SP [id number] [facility] [id number] SP [id number] [facility] COMP [id number] SP [id number] SELF PAY ONLY SP1 SP SP1 O UNAVAILABLE UNAVAILA BLE SELF PAY UNAVAILABLE SP UNAVAILA BLE EXCELLUS BCBS B [id number] S [id number] [place] 302/307 [id number] SP [id number] [employer] [place] 306/[phone] [id number] SP [id number] Self Pay S UNAVAILABLE S U[place]LE [employer] [place] [id number] SELF PAY ONLY [id number] Problems, Conditions, and Diagnoses Code Display Name Description Problem Type Effective Dates Data Source(s) 908441011 COVID-19 Covid-19 Problem 11/19/2020 12:00:00 AM ED T HILDA ([facility]) [id number] COVID-19 Covid-19 Problem 11/19/2020 12:00:00 AM ED T HILDA ([facility]) [id number] Migraine Migraine Problem 05/20/2020 12:00:00 AM ED T MEDENT ([facility]) [id number] Headache Headache Problem 05/20/2020 12:00:00 AM ED T MEDENT ([facility]) [id number] Numbness Numbness Problem 05/20/2020 12:00:00 AM ED T MEDENT ([facility]) [id number] Elevated blood-pressure reading without diagnosis of hypertension Elevated Blood-pressure Reading without Diagnosis of Hypertension Problem 02/02/2020 12:00:00 AM EST HILDA ([facility]) [id number] Elevated blood-pressure reading without diagnosis of hypertension Elevated Blood-pressure Reading without Diagnosis of Hypertension Problem 02/02/2020 12:00:00 AM EST HILDA ([facility]) [id number] Elevated blood-pressure reading without diagnosis of hypertension Elevated Blood-pressure Reading without Diagnosis of Hypertension Problem 02/02/2020 12:00:00 AM EST HILDA ([facility]) [id number] Elevated blood-pressure reading without diagnosis of hypertension Elevated Blood-pressure Reading without Diagnosis of Hypertension Problem 02/02/2020 12:00:00 AM EST HILDA ([facility]) [id number] Elevated blood-pressure reading without diagnosis of hypertension Elevated Blood-pressure Reading without Diagnosis of Hypertension Problem 02/02/2020 12:00:00 AM EST HILDA ([facility]) [id number] Elevated blood-pressure reading without diagnosis of hypertension Elevated Blood-pressure Reading without Diagnosis of Hypertension Problem 02/02/2020 12:00:00 AM EST HILDA ([facility]) [id number] Elevated blood-pressure reading without diagnosis of hypertension Elevated Blood-pressure Reading without Diagnosis of Hypertension Problem 02/02/2020 12:00:00 AM EST HILDA ([facility]) [id number] Elevated blood-pressure reading without diagnosis of hypertension Elevated Blood-pressure Reading without Diagnosis of Hypertension Problem 02/02/2020 12:00:00 AM EST HILDA ([facility]) [id number] Elevated blood-pressure reading without diagnosis of hypertension Elevated Blood-pressure Reading without Diagnosis of Hypertension Problem 02/02/2020 12:00:00 AM EST HILDA ([facility]) [id number] Elevated blood-pressure reading without diagnosis of hypertension Elevated Blood-pressure Reading without Diagnosis of Hypertension Problem 02/02/2020 12:00:00 AM EST HILDA ([facility]) [id number] Elevated blood-pressure reading without diagnosis of hypertension Elevated Blood-pressure Reading without Diagnosis of Hypertension Problem 02/02/2020 12:00:00 AM EST HILDA ([facility]) [id number] Elevated blood-pressure reading without diagnosis of hypertension Elevated Blood-pressure Reading without Diagnosis of Hypertension Problem 02/02/2020 12:00:00 AM EST HILDA ([facility]) [id number] Elevated blood-pressure reading without diagnosis of hypertension Elevated Blood-pressure Reading without Diagnosis of Hypertension Problem 02/02/2020 12:00:00 AM EST HILDA ([facility]) [id number] Elevated blood-pressure reading without diagnosis of hypertension Elevated Blood-pressure Reading without Diagnosis of Hypertension Problem 02/02/2020 12:00:00 AM EST HILDA ([facility]) [id number] Elevated blood-pressure reading without diagnosis of hypertension Elevated Blood-pressure Reading without Diagnosis of Hypertension Problem 02/02/2020 12:00:00 AM EST HILDA ([facility]) [id number] Elevated blood-pressure reading without diagnosis of hypertension Elevated Blood-pressure Reading without Diagnosis of Hypertension Problem 02/02/2020 12:00:00 AM EST HILDA ([facility]) [id number] Elevated blood-pressure reading without diagnosis of hypertension Elevated Blood-pressure Reading without Diagnosis of Hypertension Problem 02/02/2020 12:00:00 AM EST HILDA ([facility]) [id number] Elevated blood-pressure reading without diagnosis of hypertension Elevated Blood-pressure Reading without Diagnosis of Hypertension Problem 02/02/2020 12:00:00 AM EST HILDA ([facility]) [id number] Elevated blood-pressure reading without diagnosis of hypertension Elevated Blood-pressure Reading without Diagnosis of Hypertension Problem 02/02/2020 12:00:00 AM EST HILDA ([facility]) [id number] Elevated blood-pressure reading without diagnosis of hypertension Elevated Blood-pressure Reading without Diagnosis of Hypertension Problem 02/02/2020 12:00:00 AM EST HILDA ([facility]) [id number] Elevated blood-pressure reading without diagnosis of hypertension Elevated Blood-pressure Reading without Diagnosis of Hypertension Problem 02/02/2020 12:00:00 AM EST HILDA ([facility]) [id number] Elevated blood-pressure reading without diagnosis of hypertension Elevated Blood-pressure Reading without Diagnosis of Hypertension Problem 02/02/2020 12:00:00 AM EST HILDA ([facility]) [id number] Elevated blood-pressure reading without diagnosis of hypertension Elevated Blood-pressure Reading without Diagnosis of Hypertension Problem 02/02/2020 12:00:00 AM EST HILDA ([facility]) [id number] Elevated blood-pressure reading without diagnosis of hypertension Elevated Blood-pressure Reading without Diagnosis of Hypertension Problem 02/02/2020 12:00:00 AM EST HILDA ([facility]) [id number] Elevated blood-pressure reading without diagnosis of hypertension Elevated Blood-pressure Reading without Diagnosis of Hypertension Problem 02/02/2020 12:00:00 AM EST HILDA ([facility]) [id number] Elevated blood-pressure reading without diagnosis of hypertension Elevated Blood-pressure Reading without Diagnosis of Hypertension Problem 02/02/2020 12:00:00 AM EST HILDA ([facility]) [id number] Elevated blood-pressure reading without diagnosis of hypertension Elevated Blood-pressure Reading without Diagnosis of Hypertension Problem 02/02/2020 12:00:00 AM EST HILDA ([facility]) [id number] Electrocardiogram abnormal Electrocardiogram Abnormal Problem 01/07/2020 12:00:00 AM EST HILDA ([facility]) [id number] Precordial pain Precordial Pain Problem 01/07/2020 12:0 0:00 AM EST HILDA ([facility]) [id number] Palpitations Palpitations Problem 01/07/2020 12:00:00 A M EVE STEVENS ([facility]) [id number] Gastroesophageal reflux disease Gastroesophageal Reflux Disease Problem 01/07/2020 12:00:00 AM EST HILDA ([facility]) [id number] Body mass index 30+ - obesity Body Mass Index 30+ - Ob esity Problem 01/07/2020 12:00:00 AM EST HILDA ([facility]) [id number] Electrocardiogram abnormal Electrocardiogram Abnormal Problem 01/07/2020 12:00:00 AM EST HILDA ([facility]) [id number] Precordial pain Precordial Pain Problem 01/07/2020 12:0 0:00 AM EST HILDA ([facility]) [id number] Palpitations Palpitations Problem 01/07/2020 12:00:00 A M EST HILDA ([facility]) [id number] Gastroesophageal reflux disease Gastroesophageal Reflux Disease Problem 01/07/2020 12:00:00 AM EST HILDA ([facility]) [id number] Body mass index 30+ - obesity Body Mass Index 30+ - Ob esity Problem 01/07/2020 12:00:00 AM EST HILDA ([facility]) K21.9 Gastroesophageal reflux disease Gastroesophageal reflu x disease Problem 01/07/2020 12:00:00 AM EST MEDENT ([facility]) R00.2 Palpitations Palpitations Problem 01/07/2020 12:00:00 A M EST MEDENT ([facility]) Z68.30 Body mass index 30+ - obesity Body mass index 30+ - ob esity Problem 01/07/2020 12:00:00 AM EST MEDENT ([facility]) R94.31 Electrocardiogram abnormal Electrocardiogram abnormal Problem 01/07/2020 12:00:00 AM EST MEDENT ([facility]) R07.2 Precordial pain Precordial pain Problem 01/07/2020 12:0 0:00 AM EST MEDENT ([facility]) [id number] Panic disorder without agoraphobia Panic Disorde r without Agoraphobia Problem 12/29/2019 12:00:00 AM EST HILDA ([facility]) [id number] Panic disorder without agoraphobia Panic Disorde r without Agoraphobia Problem 12/29/2019 12:00:00 AM EST HILDA ([facility]) [id number] Panic disorder without agoraphobia Panic Disorde r without Agoraphobia Problem 12/29/2019 12:00:00 AM EST HILDA ([facility]) [id number] Panic disorder without agoraphobia Panic Disorde r without Agoraphobia Problem 12/29/2019 12:00:00 AM EST HILDA ([facility]) [id number] Panic disorder without agoraphobia Panic Disorde r without Agoraphobia Problem 12/29/2019 12:00:00 AM EST [facility] ([facility]) [id number] Panic disorder without agoraphobia Panic Disorde r without Agoraphobia Problem 12/29/2019 12:00:00 AM EST [facility] ([facility]) [id number] Panic disorder without agoraphobia Panic Disorde r without Agoraphobia Problem 12/29/2019 12:00:00 AM EST [facility] ([facility]) [id number] Panic disorder without agoraphobia Panic Disorde r without Agoraphobia Problem 12/29/2019 12:00:00 AM EST [facility] ([facility]) [id number] Panic disorder without agoraphobia Panic Disorde r without Agoraphobia Problem 12/29/2019 12:00:00 AM EST [facility] ([facility]) [id number] Panic disorder without agoraphobia Panic Disorde r without Agoraphobia Problem 12/29/2019 12:00:00 AM EST [facility] ([facility]) [id number] Panic disorder without agoraphobia Panic Disorde r without Agoraphobia Problem 12/29/2019 12:00:00 AM EST [facility] ([facility]) [id number] Panic disorder without agoraphobia Panic Disorde r without Agoraphobia Problem 12/29/2019 12:00:00 AM EST [facility] ([facility]) [id number] Panic disorder without agoraphobia Panic Disorde r without Agoraphobia Problem 12/29/2019 12:00:00 AM EST [facility] ([facility]) [id number] Panic disorder without agoraphobia Panic Disorde r without Agoraphobia Problem 12/29/2019 12:00:00 AM EST [facility] ([facility]) [id number] Panic disorder without agoraphobia Panic Disorde r without Agoraphobia Problem 12/29/2019 12:00:00 AM EST [facility] ([facility]) [id number] Panic disorder without agoraphobia Panic Disorde r without Agoraphobia Problem 12/29/2019 12:00:00 AM EST [facility] ([facility]) [id number] Panic disorder without agoraphobia Panic Disorde r without Agoraphobia Problem 12/29/2019 12:00:00 AM EST [facility] ([facility]) [id number] Panic disorder without agoraphobia Panic Disorde r without Agoraphobia Problem 12/29/2019 12:00:00 AM EST [facility] ([facility]) [id number] Panic disorder without agoraphobia Panic Disorde r without Agoraphobia Problem 12/29/2019 12:00:00 AM EST [facility] ([facility]) [id number] Panic disorder without agoraphobia Panic Disorde r without Agoraphobia Problem 12/29/2019 12:00:00 AM EST [facility] ([facility]) [id number] Panic disorder without agoraphobia Panic Disorde r without Agoraphobia Problem 12/29/2019 12:00:00 AM EST [facility] ([facility]) [id number] Panic disorder without agoraphobia Panic Disorde r without Agoraphobia Problem 12/29/2019 12:00:00 AM EST [facility] ([facility]) [id number] Panic disorder without agoraphobia Panic Disorde r without Agoraphobia Problem 12/29/2019 12:00:00 AM EST [facility] ([facility]) [id number] Panic disorder without agoraphobia Panic Disorde r without Agoraphobia Problem 12/29/2019 12:00:00 AM EST [facility] ([facility]) [id number] Panic disorder without agoraphobia Panic Disorde r without Agoraphobia Problem 12/29/2019 12:00:00 AM EST [facility] ([facility]) [id number] Panic disorder without agoraphobia Panic Disorde r without Agoraphobia Problem 12/29/2019 12:00:00 AM EST [facility] ([facility]) [id number] Panic disorder without agoraphobia Panic Disorde r without Agoraphobia Problem 12/29/2019 12:00:00 AM EST [facility] ([facility]) [id number] Panic disorder without agoraphobia Panic Disorde r without Agoraphobia Problem 12/29/2019 12:00:00 AM EST [facility] ([facility]) [id number] Panic disorder without agoraphobia Panic Disorde r without Agoraphobia Problem 12/29/2019 12:00:00 AM EST [facility] ([facility]) [id number] Panic disorder without agoraphobia Panic Disorde r without Agoraphobia Problem 12/29/2019 12:00:00 AM EST [facility] ([facility]) [id number] Panic disorder without agoraphobia Panic Disorde r without Agoraphobia Problem 12/29/2019 12:00:00 AM EST [facility] ([facility]) [id number] Panic disorder without agoraphobia Panic Disorde r without Agoraphobia Problem 12/29/2019 12:00:00 AM EST [facility] ([facility]) [id number] Panic disorder without agoraphobia Panic Disorde r without Agoraphobia Problem 12/29/2019 12:00:00 AM EST [facility] ([facility]) [id number] Panic disorder without agoraphobia Panic Disorde r without Agoraphobia Problem 12/29/2019 12:00:00 AM EST [facility] ([facility]) [id number] Psychophysiologic insomnia Psychophysiologic Insomnia Problem 12/11/2019 12:00:00 AM EST [facility] ([facility]) [id number] Psychophysiologic insomnia Psychophysiologic Insomnia Problem 12/11/2019 12:00:00 AM EST [facility] ([facility]) [id number] Psychophysiologic insomnia Psychophysiologic Insomnia Problem 12/11/2019 12:00:00 AM EST [facility] ([facility]) [id number] Psychophysiologic insomnia Psychophysiologic Insomnia Problem 12/11/2019 12:00:00 AM EST [facility] ([facility]) [id number] Psychophysiologic insomnia Psychophysiologic Insomnia Problem 12/11/2019 12:00:00 AM EST [facility] ([facility]) [id number] Psychophysiologic insomnia Psychophysiologic Insomnia Problem 12/11/2019 12:00:00 AM EST [facility] ([facility]) [id number] Psychophysiologic insomnia Psychophysiologic Insomnia Problem 12/11/2019 12:00:00 AM EST [facility] ([facility]) [id number] Psychophysiologic insomnia Psychophysiologic Insomnia Problem 12/11/2019 12:00:00 AM EST [facility] ([facility]) [id number] Psychophysiologic insomnia Psychophysiologic Insomnia Problem 12/11/2019 12:00:00 AM EST [facility] ([facility]) [id number] Psychophysiologic insomnia Psychophysiologic Insomnia Problem 12/11/2019 12:00:00 AM EST [facility] ([facility]) [id number] Psychophysiologic insomnia Psychophysiologic Insomnia Problem 12/11/2019 12:00:00 AM EST [facility] ([facility]) [id number] Psychophysiologic insomnia Psychophysiologic Insomnia Problem 12/11/2019 12:00:00 AM EST [facility] ([facility]) [id number] Psychophysiologic insomnia Psychophysiologic Insomnia Problem 12/11/2019 12:00:00 AM EST [facility] ([facility]) [id number] Psychophysiologic insomnia Psychophysiologic Insomnia Problem 12/11/2019 12:00:00 AM EST [facility] ([facility]) [id number] Psychophysiologic insomnia Psychophysiologic Insomnia Problem 12/11/2019 12:00:00 AM EST [facility] ([facility]) [id number] Psychophysiologic insomnia Psychophysiologic Insomnia Problem 12/11/2019 12:00:00 AM EST [facility] ([facility]) [id number] Psychophysiologic insomnia Psychophysiologic Insomnia Problem 12/11/2019 12:00:00 AM EST [facility] ([facility]) [id number] Psychophysiologic insomnia Psychophysiologic Insomnia Problem 12/11/2019 12:00:00 AM EST [facility] ([facility]) [id number] Psychophysiologic insomnia Psychophysiologic Insomnia Problem 12/11/2019 12:00:00 AM EST [facility] ([facility]) [id number] Psychophysiologic insomnia Psychophysiologic Insomnia Problem 12/11/2019 12:00:00 AM EST [facility] ([facility]) [id number] Psychophysiologic insomnia Psychophysiologic Insomnia Problem 12/11/2019 12:00:00 AM EST [facility] ([facility]) [id number] Psychophysiologic insomnia Psychophysiologic Insomnia Problem 12/11/2019 12:00:00 AM EST [facility] ([facility]) [id number] Psychophysiologic insomnia Psychophysiologic Insomnia Problem 12/11/2019 12:00:00 AM EST [facility] ([facility]) [id number] Psychophysiologic insomnia Psychophysiologic Insomnia Problem 12/11/2019 12:00:00 AM EST [facility] ([facility]) [id number] Psychophysiologic insomnia Psychophysiologic Insomnia Problem 12/11/2019 12:00:00 AM EST [facility] ([facility]) [id number] Psychophysiologic insomnia Psychophysiologic Insomnia Problem 12/11/2019 12:00:00 AM EST [facility] ([facility]) [id number] Psychophysiologic insomnia Psychophysiologic Insomnia Problem 12/11/2019 12:00:00 AM EST [facility] ([facility]) [id number] Psychophysiologic insomnia Psychophysiologic Insomnia Problem 12/11/2019 12:00:00 AM EST [facility] ([facility]) [id number] Psychophysiologic insomnia Psychophysiologic Insomnia Problem 12/11/2019 12:00:00 AM EST [facility] ([facility]) [id number] Psychophysiologic insomnia Psychophysiologic Insomnia Problem 12/11/2019 12:00:00 AM EST [facility] ([facility]) [id number] Psychophysiologic insomnia Psychophysiologic Insomnia Problem 12/11/2019 12:00:00 AM EST [facility] ([facility]) [id number] Psychophysiologic insomnia Psychophysiologic Insomnia Problem 12/11/2019 12:00:00 AM EST [facility] ([facility]) [id number] Psychophysiologic insomnia Psychophysiologic Insomnia Problem 12/11/2019 12:00:00 AM EST [facility] ([facility]) [id number] Psychophysiologic insomnia Psychophysiologic Insomnia Problem 12/11/2019 12:00:00 AM EST [facility] ([facility]) [id number] Psychophysiologic insomnia Psychophysiologic Insomnia Problem 12/11/2019 12:00:00 AM EST [facility] ([facility]) [id number] Psychophysiologic insomnia Psychophysiologic Insomnia Problem 12/11/2019 12:00:00 AM EST [facility] ([facility]) [id number] Psychophysiologic insomnia Psychophysiologic Insomnia Problem 12/11/2019 12:00:00 AM EST [facility] ([facility]) [id number] Psychophysiologic insomnia Psychophysiologic Insomnia Problem 12/11/2019 12:00:00 AM EST [facility] ([facility]) [id number] Generalized anxiety disorder Generalized Anxiety Disor sallie Problem 12/01/2019 12:00:00 AM EDT [facility] ([facility]) [id number] Generalized anxiety disorder Generalized Anxiety Disor sallie Problem 12/01/2019 12:00:00 AM EDT [facility] ([facility]) [id number] Generalized anxiety disorder Generalized Anxiety Disor sallie Problem 12/01/2019 12:00:00 AM EDT [facility] ([facility]) [id number] Generalized anxiety disorder Generalized Anxiety Disor sallie Problem 12/01/2019 12:00:00 AM EDT [facility] ([facility]) [id number] Generalized anxiety disorder Generalized Anxiety Disor sallie Problem 12/01/2019 12:00:00 AM EDT [facility] ([facility]) [id number] Generalized anxiety disorder Generalized Anxiety Disor sallie Problem 12/01/2019 12:00:00 AM EDT [facility] ([facility]) [id number] Generalized anxiety disorder Generalized Anxiety Disor sallie Problem 12/01/2019 12:00:00 AM EDT [facility] ([facility]) [id number] Generalized anxiety disorder Generalized Anxiety Disor sallie Problem 12/01/2019 12:00:00 AM EDT [facility] ([facility] [place]) [id number] Generalized anxiety disorder Generalized Anxiety Disor sallie Problem 12/01/2019 12:00:00 AM EDT [facility] ([facility]) [id number] Generalized anxiety disorder Generalized Anxiety Disor sallie Problem 12/01/2019 12:00:00 AM EDT [facility] ([facility]) [id number] Generalized anxiety disorder Generalized Anxiety Disor sallie Problem 12/01/2019 12:00:00 AM EDT [facility] ([facility]) [id number] Generalized anxiety disorder Generalized Anxiety Disor sallie Problem 12/01/2019 12:00:00 AM EDT [facility] ([facility]) [id number] Generalized anxiety disorder Generalized Anxiety Disor sallie Problem 12/01/2019 12:00:00 AM EDT [facility] ([facility]) [id number] Generalized anxiety disorder Generalized Anxiety Disor sallie Problem 12/01/2019 12:00:00 AM EDT [facility] ([facility]) [id number] Generalized anxiety disorder Generalized Anxiety Disor sallie Problem 12/01/2019 12:00:00 AM EDT [facility] ([facility]) [id number] Generalized anxiety disorder Generalized Anxiety Disor sallie Problem 12/01/2019 12:00:00 AM EDT [facility] ([facility]) [id number] Generalized anxiety disorder Generalized Anxiety Disor sallie Problem 12/01/2019 12:00:00 AM EDT [facility] ([facility]) [id number] Generalized anxiety disorder Generalized Anxiety Disor sallie Problem 12/01/2019 12:00:00 AM EDT [facility] ([facility]) [id number] Generalized anxiety disorder Generalized Anxiety Disor sallie Problem 12/01/2019 12:00:00 AM EDT [facility] ([facility]) [id number] Generalized anxiety disorder Generalized Anxiety Disor sallie Problem 12/01/2019 12:00:00 AM EDT [facility] ([facility]) [id number] Generalized anxiety disorder Generalized Anxiety Disor sallie Problem 12/01/2019 12:00:00 AM EDT [facility] ([facility]) [id number] Generalized anxiety disorder Generalized Anxiety Disor sallie Problem 12/01/2019 12:00:00 AM EDT [facility] ([facility]) [id number] Generalized anxiety disorder Generalized Anxiety Disor sallie Problem 12/01/2019 12:00:00 AM EDT [facility] ([facility]) [id number] Generalized anxiety disorder Generalized Anxiety Disor sallie Problem 12/01/2019 12:00:00 AM EDT [facility] ([facility]) [id number] Generalized anxiety disorder Generalized Anxiety Disor sallie Problem 12/01/2019 12:00:00 AM EDT [facility] ([facility]) [id number] Generalized anxiety disorder Generalized Anxiety Disor sallie Problem 12/01/2019 12:00:00 AM EDT [facility] ([facility]) [id number] Generalized anxiety disorder Generalized Anxiety Disor sallie Problem 12/01/2019 12:00:00 AM EDT [facility] ([facility]) [id number] Generalized anxiety disorder Generalized Anxiety Disor sallie Problem 12/01/2019 12:00:00 AM EDT [facility] ([facility]) 44819574 Generalized anxiety disorder Generalized Anxiety Disor sallie Problem 12/01/2019 12:00:00 AM EDT [facility] ([facility]) [id number] Generalized anxiety disorder Generalized Anxiety Disor sallie Problem 12/01/2019 12:00:00 AM EDT [facility] ([facility]) [id number] Generalized anxiety disorder Generalized Anxiety Disor sallie Problem 12/01/2019 12:00:00 AM EDT [facility] ([facility]) [id number] Generalized anxiety disorder Generalized Anxiety Disor sallie Problem 12/01/2019 12:00:00 AM EDT [facility] ([facility]) [id number] Generalized anxiety disorder Generalized Anxiety Disor sallie Problem 12/01/2019 12:00:00 AM EDT [facility] ([facility]) [id number] Generalized anxiety disorder Generalized Anxiety Disor sallie Problem 12/01/2019 12:00:00 AM EDT [facility] ([facility]) [id number] Generalized anxiety disorder Generalized Anxiety Disor sallie Problem 12/01/2019 12:00:00 AM EDT [facility] ([facility]) [id number] Generalized anxiety disorder Generalized Anxiety Disor sallie Problem 12/01/2019 12:00:00 AM EDT [facility] ([facility]) [id number] Generalized anxiety disorder Generalized Anxiety Disor sallie Problem 12/01/2019 12:00:00 AM EDT [facility] ([facility]) [id number] Generalized anxiety disorder Generalized Anxiety Disor sallie Problem 12/01/2019 12:00:00 AM EDT [facility] ([facility]) [id number] Generalized anxiety disorder Generalized Anxiety Disor sallie Problem 12/01/2019 12:00:00 AM EDT [facility] ([facility]) 58529332 Generalized anxiety disorder Generalized Anxiety Disor sallie Problem 12/01/2019 12:00:00 AM EDT [facility] ([facility]) 427.89 Bradycardia Bradycardia 10/28/2019 04:05:45 PM EDT [facility] [id number] Chest pain, unspecified Chest pain, unspecified 10/28/2019 04:05:45 PM EDT [facility] 819880693 Chronic insomnia Chronic insomnia 10/28/2019 04 :05:45 PM EDT [facility] [id number] Cardiovascular measurement - finding Car diovascular Measurement - Finding Problem 10/28/2019 12:00:00 AM EDT [facility] ([facility]) [id number] Chest pain Chest Pain Problem 10/28/2019 12:00:00 AM ED T [facility] ([facility]) [id number] Cardiovascular measurement - finding Car diovascular Measurement - Finding Problem 10/28/2019 12:00:00 AM EDT [facility] ([facility]) [id number] Chest pain Chest Pain Problem 10/28/2019 12:00:00 AM ED T [facility] ([facility]) [id number] Cardiovascular measurement - finding Car diovascular Measurement - Finding Problem 10/28/2019 12:00:00 AM EDT [facility] ([facility]) 75454634 Chest pain Chest Pain Problem 10/28/2019 12:00:00 AM ED T [facility] ([facility]) [id number] Cardiovascular measurement - finding Car diovascular Measurement - Finding Problem 10/28/2019 12:00:00 AM EDT [facility] ([facility]) [id number] Chest pain Chest Pain Problem 10/28/2019 12:00:00 AM ED T [facility] ([facility]) 506017406 Cardiovascular measurement - finding Car diovascular Measurement - Finding Problem 10/28/2019 12:00:00 AM EDT [facility] ([facility]) [id number] Chest pain Chest Pain Problem 10/28/2019 12:00:00 AM ED T [facility] ([facility]) 535751606 Cardiovascular measurement - finding Car diovascular Measurement - Finding Problem 10/28/2019 12:00:00 AM EDT [facility] ([facility]) 24382611 Chest pain Chest Pain Problem 10/28/2019 12:00:00 AM ED T [facility] ([facility]) [id number] Cardiovascular measurement - finding Car diovascular Measurement - Finding Problem 10/28/2019 12:00:00 AM EDT [facility] ([facility]) 23836534 Chest pain Chest Pain Problem 10/28/2019 12:00:00 AM ED T [facility] ([facility]) 782515597 Cardiovascular measurement - finding Car diovascular Measurement - Finding Problem 10/28/2019 12:00:00 AM EDT [facility] ([facility]) [id number] Chest pain Chest Pain Problem 10/28/2019 12:00:00 AM ED T [facility] ([facility]) [id number] Cardiovascular measurement - finding Car diovascular Measurement - Finding Problem 10/28/2019 12:00:00 AM EDT [facility] ([facility]) 49050999 Chest pain Chest Pain Problem 10/28/2019 12:00:00 AM ED T [facility] ([facility]) [id number] Cardiovascular measurement - finding Car diovascular Measurement - Finding Problem 10/28/2019 12:00:00 AM EDT [facility] ([facility]) 41867754 Chest pain Chest Pain Problem 10/28/2019 12:00:00 AM ED T [facility] ([facility]) 660443284 Cardiovascular measurement - finding Car diovascular Measurement - Finding Problem 10/28/2019 12:00:00 AM EDT [facility] ([facility]) 73443339 Chest pain Chest Pain Problem 10/28/2019 12:00:00 AM ED T [facility] ([facility]) [id number] Cardiovascular measurement - finding Car diovascular Measurement - Finding Problem 10/28/2019 12:00:00 AM EDT [facility] ([facility]) 78004930 Chest pain Chest Pain Problem 10/28/2019 12:00:00 AM ED T [facility] ([facility]) [id number] Cardiovascular measurement - finding Car diovascular Measurement - Finding Problem 10/28/2019 12:00:00 AM EDT [facility] ([facility]) [id number] Chest pain Chest Pain Problem 10/28/2019 12:00:00 AM ED T [facility] ([facility]) [id number] Cardiovascular measurement - finding Car diovascular Measurement - Finding Problem 10/28/2019 12:00:00 AM EDT [facility] ([facility]) 43139957 Chest pain Chest Pain Problem 10/28/2019 12:00:00 AM ED T [facility] ([facility]) 683650782 Cardiovascular measurement - finding Car diovascular Measurement - Finding Problem 10/28/2019 12:00:00 AM EDT [facility] ([facility]) 73739492 Chest pain Chest Pain Problem 10/28/2019 12:00:00 AM ED T [facility] ([facility]) 065551267 Cardiovascular measurement - finding Car diovascular Measurement - Finding Problem 10/28/2019 12:00:00 AM EDT [facility] ([facility]) 25612600 Chest pain Chest Pain Problem 10/28/2019 12:00:00 AM ED T [facility] ([facility]) 841301407 Cardiovascular measurement - finding Car diovascular Measurement - Finding Problem 10/28/2019 12:00:00 AM EDT [facility] ([facility]) 43040542 Chest pain Chest Pain Problem 10/28/2019 12:00:00 AM ED T [facility] ([facility]) [id number] Cardiovascular measurement - finding Car diovascular Measurement - Finding Problem 10/28/2019 12:00:00 AM EDT [facility] ([facility]) 65277009 Chest pain Chest Pain Problem 10/28/2019 12:00:00 AM ED T [facility] ([facility]) [id number] Cardiovascular measurement - finding Car diovascular Measurement - Finding Problem 10/28/2019 12:00:00 AM EDT [facility] ([facility]) [id number] Chest pain Chest Pain Problem 10/28/2019 12:00:00 AM ED T [facility] ([facility]) [id number] Cardiovascular measurement - finding Car diovascular Measurement - Finding Problem 10/28/2019 12:00:00 AM EDT [facility] ([facility]) [id number] Chest pain Chest Pain Problem 10/28/2019 12:00:00 AM ED T [facility] ([facility]) 158234317 Cardiovascular measurement - finding Car diovascular Measurement - Finding Problem 10/28/2019 12:00:00 AM EDT [facility] ([facility]) [id number] Chest pain Chest Pain Problem 10/28/2019 12:00:00 AM ED T [facility] ([facility]) [id number] Cardiovascular measurement - finding Car diovascular Measurement - Finding Problem 10/28/2019 12:00:00 AM EDT [facility] ([facility]) [id number] Chest pain Chest Pain Problem 10/28/2019 12:00:00 AM ED T [facility] ([facility]) 240686399 Cardiovascular measurement - finding Car diovascular Measurement - Finding Problem 10/28/2019 12:00:00 AM EDT [facility] ([facility]) [id number] Chest pain Chest Pain Problem 10/28/2019 12:00:00 AM ED T [facility] ([facility]) 300.02 GENERALIZED ANXIETY DISORDER GENERALIZED ANXIETY DISOR SALLIE 10/14/2019 09:01:07 AM EDT [facility] 300.01 PANIC DISORDER PANIC DISORDER 10/14/2019 09:01: 07 AM EDT [facility] [id number] Panic disorder Panic Disorder Problem 10/14/2019 12:00:00 AM EDT - 06/22/2020 12:00:00 AM EDT [facility] ([facility]) 567151450 Panic disorder Panic Disorder Problem 10/14/2019 12:00:00 AM EDT - 06/22/2020 12:00:00 AM EDT [facility] ([facility]) 425481076 Panic disorder Panic Disorder Problem 10/14/2019 12:00:00 AM EDT - 06/22/2020 12:00:00 AM EDT [facility] ([facility]) 713472918 Panic disorder Panic Disorder Problem 10/14/2019 12:00:00 AM EDT - 06/22/2020 12:00:00 AM EDT [facility] ([facility]) 534114788 Panic disorder Panic Disorder Problem 10/14/2019 12:00:00 AM EDT - 06/22/2020 12:00:00 AM EDT [facility] ([facility]) [id number] Panic disorder Panic Disorder Problem 10/14/2019 12:00:00 AM EDT - 06/22/2020 12:00:00 AM EDT [facility] ([facility]) [id number] Panic disorder Panic Disorder Problem 10/14/2019 12:00:00 AM EDT - 06/22/2020 12:00:00 AM EDT [facility] ([facility]) [id number] Panic disorder Panic Disorder Problem 10/14/2019 12:00:00 AM EDT - 06/22/2020 12:00:00 AM EDT [facility] ([facility]) [id number] Panic disorder Panic Disorder Problem 10/14/2019 12:00: 00 AM EDT [facility] ([facility]) [id number] Panic disorder Panic Disorder Problem 10/14/2019 12:00: 00 AM EDT [facility] ([facility]) [id number] Panic disorder Panic Disorder Problem 10/14/2019 12:00: 00 AM EDT [facility] ([facility]) [id number] Panic disorder Panic Disorder Problem 10/14/2019 12:00:00 AM EDT - 06/22/2020 12:00:00 AM EDT [facility] ([facility]) [id number] Panic disorder Panic Disorder Problem 10/14/2019 12:00:00 AM EDT - 06/22/2020 12:00:00 AM EDT [facility] ([facility]) [id number] Panic disorder Panic Disorder Problem 10/14/2019 12:00:00 AM EDT - 06/22/2020 12:00:00 AM EDT [facility] ([facility]) [id number] Panic disorder Panic Disorder Problem 10/14/2019 12:00:00 AM EDT - 06/22/2020 12:00:00 AM EDT [facility] ([facility]) [id number] Panic disorder Panic Disorder Problem 10/14/2019 12:00:00 AM EDT - 06/22/2020 12:00:00 AM EDT [facility] ([facility]) [id number] Panic disorder Panic Disorder Problem 10/14/2019 12:00:00 AM EDT - 06/22/2020 12:00:00 AM EDT [facility] ([facility]) [id number] Panic disorder Panic Disorder Problem 10/14/2019 12:00: 00 AM EDT [facility] ([facility]) [id number] Panic disorder Panic Disorder Problem 10/14/2019 12:00: 00 AM EDT [facility] ([facility]) [id number] Panic disorder Panic Disorder Problem 10/14/2019 12:00: 00 AM EDT [facility] ([facility]) [id number] Panic disorder Panic Disorder Problem 10/14/2019 12:00:00 AM EDT - 06/22/2020 12:00:00 AM EDT [facility] ([facility]) [id number] Panic disorder Panic Disorder Problem 10/14/2019 12:00:00 AM EDT - 06/22/2020 12:00:00 AM EDT [facility] ([facility]) [id number] Panic disorder Panic Disorder Problem 10/14/2019 12:00: 00 AM EDT [facility] ([facility]) [id number] Panic disorder Panic Disorder Problem 09/10/2019 12:00:00 AM EDT - 12/29/2019 12:00:00 AM EST [facility] ([facility]) [id number] Procedure by method Procedure by Method Problem 0 09/10/2019 12:00:00 AM EDT - 12/11/2019 12:00:00 AM EST [facility] ([facility]) [id number] Adjustment disorder with mixed anxiety a nd depressed mood Adjustment Disorder with Mixed Anxiety and Depressed Mood Problem 12:00:00 AM EDT - 06/22/2020 12:00:00 AM EDT [facility] ([facility]) [id number] Panic disorder Panic Disorder Problem 09/10/2019 12:00:00 AM EDT - 12/29/2019 12:00:00 AM EST [facility] ([facility]) [id number] Procedure by method Procedure by Method Problem 0 09/10/2019 12:00:00 AM EDT - 12/11/2019 12:00:00 AM EST [facility] ([facility]) [id number] Adjustment disorder with mixed anxiety a nd depressed mood Adjustment Disorder with Mixed Anxiety and Depressed Mood Problem 12:00:00 AM EDT - 06/22/2020 12:00:00 AM EDT [facility] ([facility]) [id number] Panic disorder Panic Disorder Problem 09/10/2019 12:00:00 AM EDT - 12/29/2019 12:00:00 AM EST [facility] ([facility]) [id number] Procedure by method Procedure by Method Problem 0 09/10/2019 12:00:00 AM EDT - 12/11/2019 12:00:00 AM EST [facility] ([facility]) [id number] Adjustment disorder with mixed anxiety a nd depressed mood Adjustment Disorder with Mixed Anxiety and Depressed Mood Problem 12:00:00 AM EDT - 06/22/2020 12:00:00 AM EDT [facility] ([facility]) [id number] Panic disorder Panic Disorder Problem 09/10/2019 12:00:00 AM EDT - 12/29/2019 12:00:00 AM EST [facility] ([facility]) [id number] Procedure by method Procedure by Method Problem 0 09/10/2019 12:00:00 AM EDT - 12/11/2019 12:00:00 AM EST [facility] ([facility]) [id number] Adjustment disorder with mixed anxiety a nd depressed mood Adjustment Disorder with Mixed Anxiety and Depressed Mood Problem 12:00:00 AM EDT - 06/22/2020 12:00:00 AM EDT [facility] ([facility]) [id number] Panic disorder Panic Disorder Problem 09/10/2019 12:00:00 AM EDT - 12/29/2019 12:00:00 AM EST [facility] ([facility]) [id number] Procedure by method Procedure by Method Problem 0 09/10/2019 12:00:00 AM EDT - 12/11/2019 12:00:00 AM EST [facility] ([facility]) [id number] Adjustment disorder with mixed anxiety a nd depressed mood Adjustment Disorder with Mixed Anxiety and Depressed Mood Problem 12:00:00 AM EDT - 06/22/2020 12:00:00 AM EDT [facility] ([facility]) [id number] Panic disorder Panic Disorder Problem 09/10/2019 12:00:00 AM EDT - 12/29/2019 12:00:00 AM EST [facility] ([facility]) [id number] Procedure by method Procedure by Method Problem 0 09/10/2019 12:00:00 AM EDT - 12/11/2019 12:00:00 AM EST [facility] ([facility]) [id number] Adjustment disorder with mixed anxiety a nd depressed mood Adjustment Disorder with Mixed Anxiety and Depressed Mood Problem 12:00:00 AM EDT - 06/22/2020 12:00:00 AM EDT [facility] ([facility]) [id number] Panic disorder Panic Disorder Problem 09/10/2019 12:00:00 AM EDT - 12/29/2019 12:00:00 AM EST [facility] ([facility]) [id number] Procedure by method Procedure by Method Problem 0 09/10/2019 12:00:00 AM EDT - 12/11/2019 12:00:00 AM EST [facility] ([facility]) [id number] Adjustment disorder with mixed anxiety a nd depressed mood Adjustment Disorder with Mixed Anxiety and Depressed Mood Problem 12:00:00 AM EDT - 06/22/2020 12:00:00 AM EDT [facility] ([facility]) [id number] Panic disorder Panic Disorder Problem 09/10/2019 12:00:00 AM EDT - 12/29/2019 12:00:00 AM EST [facility] ([facility]) [id number] Procedure by method Procedure by Method Problem 0 09/10/2019 12:00:00 AM EDT - 12/11/2019 12:00:00 AM EST [facility] ([facility]) [id number] Adjustment disorder with mixed anxiety a nd depressed mood Adjustment Disorder with Mixed Anxiety and Depressed Mood Problem 12:00:00 AM EDT - 06/22/2020 12:00:00 AM EDT [facility] ([facility]) [id number] Panic disorder Panic Disorder Problem 09/10/2019 12:00:00 AM EDT - 12/29/2019 12:00:00 AM EST [facility] ([facility]) [id number] Procedure by method Procedure by Method Problem 0 09/10/2019 12:00:00 AM EDT - 12/11/2019 12:00:00 AM EST [facility] ([facility]) [id number] Adjustment disorder with mixed anxiety a nd depressed mood Adjustment Disorder with Mixed Anxiety and Depressed Mood Problem 12:00:00 AM EDT - 06/22/2020 12:00:00 AM EDT [facility] ([facility]) [id number] Panic disorder Panic Disorder Problem 09/10/2019 12:00:00 AM EDT - 12/29/2019 12:00:00 AM EST [facility] ([facility]) [id number] Procedure by method Procedure by Method Problem 0 09/10/2019 12:00:00 AM EDT - 12/11/2019 12:00:00 AM EST [facility] ([facility]) [id number] Panic disorder Panic Disorder Problem 09/10/2019 12:00:00 AM EDT - 12/29/2019 12:00:00 AM EST [facility] ([facility]) [id number] Procedure by method Procedure by Method Problem 0 09/10/2019 12:00:00 AM EDT - 12/11/2019 12:00:00 AM EST [facility] ([facility]) [id number] Panic disorder Panic Disorder Problem 09/10/2019 12:00:00 AM EDT - 12/29/2019 12:00:00 AM EST [facility] ([facility]) [id number] Procedure by method Procedure by Method Problem 0 09/10/2019 12:00:00 AM EDT - 12/11/2019 12:00:00 AM EST [facility] ([facility]) [id number] Panic disorder Panic Disorder Problem 09/10/2019 12:00:00 AM EDT - 12/29/2019 12:00:00 AM EST [facility] ([facility]) [id number] Procedure by method Procedure by Method Problem 0 09/10/2019 12:00:00 AM EDT - 12/11/2019 12:00:00 AM EST [facility] ([facility]) [id number] Panic disorder Panic Disorder Problem 09/10/2019 12:00:00 AM EDT - 12/29/2019 12:00:00 AM EST [facility] ([facility]) [id number] Procedure by method Procedure by Method Problem 0 09/10/2019 12:00:00 AM EDT - 12/11/2019 12:00:00 AM EST [facility] ([facility]) [id number] Panic disorder Panic Disorder Problem 09/10/2019 12:00:00 AM EDT - 12/29/2019 12:00:00 AM EST [facility] ([facility]) [id number] Procedure by method Procedure by Method Problem 0 09/10/2019 12:00:00 AM EDT - 12/11/2019 12:00:00 AM EST [facility] ([facility]) [id number] Adjustment disorder with mixed anxiety a nd depressed mood Adjustment Disorder with Mixed Anxiety and Depressed Mood Problem 12:00:00 AM EDT - 06/22/2020 12:00:00 AM EDT [facility] ([facility]) [id number] Panic disorder Panic Disorder Problem 09/10/2019 12:00:00 AM EDT - 12/29/2019 12:00:00 AM EST [facility] ([facility]) [id number] Procedure by method Procedure by Method Problem 0 09/10/2019 12:00:00 AM EDT - 12/11/2019 12:00:00 AM EST [facility] ([facility]) [id number] Adjustment disorder with mixed anxiety a nd depressed mood Adjustment Disorder with Mixed Anxiety and Depressed Mood Problem 12:00:00 AM EDT - 06/22/2020 12:00:00 AM EDT [facility] ([facility]) [id number] Panic disorder Panic Disorder Problem 09/10/2019 12:00:00 AM EDT - 12/29/2019 12:00:00 AM EST [facility] ([facility]) [id number] Procedure by method Procedure by Method Problem 0 09/10/2019 12:00:00 AM EDT - 12/11/2019 12:00:00 AM EST [facility] ([facility]) [id number] Adjustment disorder with mixed anxiety a nd depressed mood Adjustment Disorder with Mixed Anxiety and Depressed Mood Problem 12:00:00 AM EDT - 06/22/2020 12:00:00 AM EDT [facility] ([facility]) [id number] Panic disorder Panic Disorder Problem 09/10/2019 12:00:00 AM EDT - 12/29/2019 12:00:00 AM EST [facility] ([facility]) [id number] Procedure by method Procedure by Method Problem 0 09/10/2019 12:00:00 AM EDT - 12/11/2019 12:00:00 AM EST [facility] ([facility]) [id number] Adjustment disorder with mixed anxiety a nd depressed mood Adjustment Disorder with Mixed Anxiety and Depressed Mood Problem 020 12:00:00 AM EDT - 06/22/2020 12:00:00 AM EDT [facility] ([facility]) [id number] Panic disorder Panic Disorder Problem 09/10/2019 12:00:00 AM EDT - 12/29/2019 12:00:00 AM EST [facility] ([facility]) [id number] Procedure by method Procedure by Method Problem 0 09/10/2019 12:00:00 AM EDT - 12/11/2019 12:00:00 AM EST [facility] ([facility]) [id number] Panic disorder Panic Disorder Problem 09/10/2019 12:00:00 AM EDT - 12/29/2019 12:00:00 AM EST [facility] ([facility]) [id number] Procedure by method Procedure by Method Problem 0 09/10/2019 12:00:00 AM EDT - 12/11/2019 12:00:00 AM EST [facility] ([facility]) [id number] Adjustment disorder with mixed anxiety a nd depressed mood Adjustment Disorder with Mixed Anxiety and Depressed Mood Problem 020 12:00:00 AM EDT - 06/22/2020 12:00:00 AM EDT [facility] ([facility]) [id number] Panic disorder Panic Disorder Problem 09/10/2019 12:00:00 AM EDT - 12/29/2019 12:00:00 AM EST [facility] ([facility]) [id number] Procedure by method Procedure by Method Problem 0 09/10/2019 12:00:00 AM EDT - 12/11/2019 12:00:00 AM EST [facility] ([facility]) [id number] Panic disorder Panic Disorder Problem 09/10/2019 12:00:00 AM EDT - 12/29/2019 12:00:00 AM EST [facility] ([facility]) [id number] Procedure by method Procedure by Method Problem 0 09/10/2019 12:00:00 AM EDT - 12/11/2019 12:00:00 AM EST [facility] ([facility]) [id number] Panic disorder Panic Disorder Problem 09/10/2019 12:00:00 AM EDT - 12/29/2019 12:00:00 AM EST [facility] ([facility]) [id number] Procedure by method Procedure by Method Problem 0 09/10/2019 12:00:00 AM EDT - 12/11/2019 12:00:00 AM EST [facility] ([facility]) [id number] Adjustment disorder with mixed anxiety a nd depressed mood Adjustment Disorder with Mixed Anxiety and Depressed Mood Problem 020 12:00:00 AM EDT - 06/22/2020 12:00:00 AM EDT [facility] ([facility]) [id number] Panic disorder Panic Disorder Problem 09/10/2019 12:00:00 AM EDT - 12/29/2019 12:00:00 AM EST [facility] ([facility]) [id number] Procedure by method Procedure by Method Problem 0 09/10/2019 12:00:00 AM EDT - 12/11/2019 12:00:00 AM EST [facility] ([facility]) [id number] Adjustment disorder with mixed anxiety a nd depressed mood Adjustment Disorder with Mixed Anxiety and Depressed Mood Problem 020 12:00:00 AM EDT - 06/22/2020 12:00:00 AM EDT [facility] ([facility]) [id number] Panic disorder Panic Disorder Problem 09/10/2019 12:00:00 AM EDT - 12/29/2019 12:00:00 AM EST [facility] ([facility]) [id number] Procedure by method Procedure by Method Problem 0 09/10/2019 12:00:00 AM EDT - 12/11/2019 12:00:00 AM EST [facility] ([facility]) [id number] Panic disorder Panic Disorder Problem 09/10/2019 12:00:00 AM EDT - 12/29/2019 12:00:00 AM EST [facility] ([facility]) [id number] Procedure by method Procedure by Method Problem 0 09/10/2019 12:00:00 AM EDT - 12/11/2019 12:00:00 AM EST [facility] ([facility]) [id number] Panic disorder Panic Disorder Problem 09/10/2019 12:00:00 AM EDT - 12/29/2019 12:00:00 AM EST [facility] ([facility]) [id number] Procedure by method Procedure by Method Problem 0 09/10/2019 12:00:00 AM EDT - 12/11/2019 12:00:00 AM EST [facility] ([facility]) [id number] Procedure by method Procedure by Method Problem 0 09/10/2019 12:00:00 AM EDT - 12/11/2019 12:00:00 AM EST [facility] ([facility]) [id number] Procedure by method Procedure by Method Problem 0 09/10/2019 12:00:00 AM EDT - 12/11/2019 12:00:00 AM EST [facility] ([facility]) [id number] Procedure by method Procedure by Method Problem 0 09/10/2019 12:00:00 AM EDT - 12/11/2019 12:00:00 AM EST [facility] ([facility]) [id number] Procedure by method Procedure by Method Problem 0 09/10/2019 12:00:00 AM EDT - 12/11/2019 12:00:00 AM EST [facility] ([facility]) [id number] Panic disorder Panic Disorder Problem 09/10/2019 12:00:00 AM EDT - 12/29/2019 12:00:00 AM EST [facility] ([facility]) [id number] Procedure by method Procedure by Method Problem 0 09/10/2019 12:00:00 AM EDT - 12/11/2019 12:00:00 AM EST [facility] ([facility]) [id number] Panic disorder Panic Disorder Problem 09/10/2019 12:00:00 AM EDT - 12/29/2019 12:00:00 AM EST [facility] ([facility]) [id number] Procedure by method Procedure by Method Problem 0 09/10/2019 12:00:00 AM EDT - 12/11/2019 12:00:00 AM EST [facility] ([facility]) [id number] Panic disorder Panic Disorder Problem 09/10/2019 12:00:00 AM EDT - 12/29/2019 12:00:00 AM EST [facility] ([facility]) [id number] Procedure by method Procedure by Method Problem 0 09/10/2019 12:00:00 AM EDT - 12/11/2019 12:00:00 AM EST [facility] ([facility]) [id number] Panic disorder Panic Disorder Problem 09/10/2019 12:00:00 AM EDT - 12/29/2019 12:00:00 AM EST [facility] ([facility]) [id number] Procedure by method Procedure by Method Problem 0 09/10/2019 12:00:00 AM EDT - 12/11/2019 12:00:00 AM EST [facility] ([facility]) [id number] Panic disorder Panic Disorder Problem 09/10/2019 12:00:00 AM EDT - 12/29/2019 12:00:00 AM EST [facility] ([facility]) [id number] Procedure by method Procedure by Method Problem 0 09/10/2019 12:00:00 AM EDT - 12/11/2019 12:00:00 AM EST [facility] ([facility]) [id number] Panic disorder Panic Disorder Problem 09/10/2019 12:00:00 AM EDT - 12/29/2019 12:00:00 AM EST [facility] ([facility]) [id number] Procedure by method Procedure by Method Problem 0 09/10/2019 12:00:00 AM EDT - 12/11/2019 12:00:00 AM EST [facility] ([facility]) [id number] Panic disorder Panic Disorder Problem 09/10/2019 12:00:00 AM EDT - 12/29/2019 12:00:00 AM EST [facility] ([facility]) [id number] Procedure by method Procedure by Method Problem 0 09/10/2019 12:00:00 AM EDT - 12/11/2019 12:00:00 AM EST [facility] ([facility]) Surgeries/Procedures Procedure Description Date Indications Data Source(s) XTRNL ECG < 48 HR RECORDING 01/12/2020 12:00:00 AM EST [facility] ([facility]) XTRNL ECG CONTINUOUS RHYTHM PHYS REVIEW&INTERPJ 2019 12:00:00 AM EST [facility] ([facility]) CV STRS TST XERS&/OR RX CONT ECG PHYS SI&R 01/08/2020 12:00:00 AM EST [facility] ([facility]) ECHO TTHRC R-T 2D W/WOM-MODE COMPL SPEC&COLR DOP 01/07 12:00:00 AM EST [facility] ([facility]) ECG ROUTINE ECG W/LEAST 12 LDS W/I&R 01/07/2020 12:00: 00 AM EST [facility] ([facility]) Results ID Date Data Source [id number] 04/29/2020 04:04:00 PM EDT [facility] ([facility]) Name Value Range Interpretation Code Description Data Ellie rce(s) Supporting Document(s) istat HCT 45.0 % 38.0-51.0 Istat HCT [facility] ([facility]) istat glucose 94 mg/dL 70-105 Istat Glucose [facility]DA ( [facility]) istat sodium 139 mEq/L 136-145 Istat Sodium [facility] ([facility]) istat chloride 99 mEq/L 98-109 Istat Chloride [facility] ([facility]) istat potassium 4.0 mEq/L 3.5-5.1 Istat Potassium ATHE NA ([facility]) istat Ca++ 5.1 mg/dL 4.5-5.3 Istat Ca++ [facility] ([facility]) istat creatinine 1.1 mg/dL 0.6-1.3 Istat Creatinine AT SHANI ([facility]) istat BUN 19 mg/dL 8-26 Istat BUN [facility] ([facility]) istat CO2 29.0 mm/L 23.0-27.0 Above high normal Istat CO2 [facility] ([facility]) ID Date Data Source [id number] 04/29/2020 04:04:00 PM EDT [facility] ([facility]) Name Value Range Interpretation Code Description Data Ellie rce(s) Supporting Document(s) istat glucose 94 mg/dL 70-105 Istat Glucose [facility] ( [facility]) istat HCT 45.0 % 38.0-51.0 Istat HCT [facility] ([facility]) istat Ca++ 5.1 mg/dL 4.5-5.3 Istat Ca++ [facility] ([facility]) istat chloride 99 mEq/L 98-109 Istat Chloride [facility] ([facility]) istat sodium 139 mEq/L 136-145 Istat Sodium [facility] ([facility]) istat potassium 4.0 mEq/L 3.5-5.1 Istat Potassium ATHE NA ([facility]) istat BUN 19 mg/dL 8-26 Istat BUN [facility] ([facility]) istat CO2 29.0 mm/L 23.0-27.0 Above high normal Istat CO2 [facility] ([facility]) istat creatinine 1.1 mg/dL 0.6-1.3 Istat Creatinine AT SHANI ([facility]) ID Date Data Source [id number] 04/29/2020 04:04:00 PM EDT [facility] ([facility]) Name Value Range Interpretation Code Description Data Ellie rce(s) Supporting Document(s) istat HCT 45.0 % 38.0-51.0 Istat HCT [facility] ([facility]) istat glucose 94 mg/dL 70-105 Istat Glucose [facility] ( [facility]) istat Ca++ 5.1 mg/dL 4.5-5.3 Istat Ca++ [facility] ([facility]) istat sodium 139 mEq/L 136-145 Istat Sodium [facility] ([facility]) istat potassium 4.0 mEq/L 3.5-5.1 Istat Potassium ATHE NA ([facility]) istat BUN 19 mg/dL 8-26 Istat BUN [facility] ([facility]) istat chloride 99 mEq/L 98-109 Istat Chloride [facility] ([facility]) istat CO2 29.0 mm/L 23.0-27.0 Above high normal Istat CO2 [facility] ([facility]) istat creatinine 1.1 mg/dL 0.6-1.3 Istat Creatinine AT [facility]) ID Date Data Source [id number] 04/29/2020 04:04:00 PM EDT [facility] ([facility]) Name Value Range Interpretation Code Description Data Ellie rce(s) Supporting Document(s) istat HCT 45.0 % 38.0-51.0 Istat HCT [facility] ([facility]) istat glucose 94 mg/dL 70-105 Istat Glucose [facility] ( [facility]) istat sodium 139 mEq/L 136-145 Istat Sodium [facility] ([facility]) istat potassium 4.0 mEq/L 3.5-5.1 Istat Potassium ATHE NA ([facility]) istat Ca++ 5.1 mg/dL 4.5-5.3 Istat Ca++ [facility] ([facility]) istat CO2 29.0 mm/L 23.0-27.0 Above high normal Istat CO2 [facility] ([facility]) istat chloride 99 mEq/L 98-109 Istat Chloride [facility] ([facility]) istat BUN 19 mg/dL 8-26 Istat BUN [facility] ([facility]) istat creatinine 1.1 mg/dL 0.6-1.3 Istat Creatinine AT [facility]) ID Date Data Source [id number] 04/29/2020 04:04:00 PM EDT [facility]) Name Value Range Interpretation Code Description Data Ellie rce(s) Supporting Document(s) istat HCT 45.0 % 38.0-51.0 Istat HCT [facility] ([facility]) istat potassium 4.0 mEq/L 3.5-5.1 Istat Potassium ATH NA ([facility]) istat glucose 94 mg/dL 70-105 Istat Glucose [facility] ( [facility]) istat sodium 139 mEq/L 136-145 Istat Sodium [facility] ([facility]) istat CO2 29.0 mm/L 23.0-27.0 Above high normal Istat CO2 [facility] ([facility]) istat chloride 99 mEq/L 98-109 Istat Chloride [facility] ([facility]) istat Ca++ 5.1 mg/dL 4.5-5.3 Istat Ca++ [facility] ([facility]) istat creatinine 1.1 mg/dL 0.6-1.3 Istat Creatinine AT [facility] ([facility]) istat BUN 19 mg/dL 8-26 Istat BUN [facility] ([facility]) ID Date Data Source [id number] 04/29/2020 04:04:00 PM EDT [facility] ([facility]) Name Value Range Interpretation Code Description Data Ellie rce(s) Supporting Document(s) istat HCT 45.0 % 38.0-51.0 Istat HCT [facility] ([facility]) istat potassium 4.0 mEq/L 3.5-5.1 Istat Potassium ATHE NA ([facility]) istat glucose 94 mg/dL 70-105 Istat Glucose [facility] ( [facility]) istat sodium 139 mEq/L 136-145 Istat Sodium [facility] ([facility]) istat CO2 29.0 mm/L 23.0-27.0 Above high normal Istat CO2 [facility] ([facility]) istat Ca++ 5.1 mg/dL 4.5-5.3 Istat Ca++ [facility] ([facility]) istat chloride 99 mEq/L 98-109 Istat Chloride [facility] ([facility]) istat creatinine 1.1 mg/dL 0.6-1.3 Istat Creatinine AT [facility] ([facility]) istat BUN 19 mg/dL 8-26 Istat BUN I[facility]DA ([facility]) ID Date Data Source [id number] 04/29/2020 04:04:00 PM EDT [facility] ([facility]) Name Value Range Interpretation Code Description Data Ellie rce(s) Supporting Document(s) istat HCT 45.0 % 38.0-51.0 Istat HCT [facility] ([facility]) istat Ca++ 5.1 mg/dL 4.5-5.3 Istat Ca++ [facility] ([facility]) istat glucose 94 mg/dL 70-105 Istat Glucose [facility] ( [facility]) istat sodium 139 mEq/L 136-145 Istat Sodium [facility] ([facility]) istat potassium 4.0 mEq/L 3.5-5.1 Istat Potassium ATHE NA ([facility]) istat chloride 99 mEq/L 98-109 Istat Chloride [facility] ([facility]) istat BUN 19 mg/dL 8-26 Istat BUN HILDA ([facility]) istat CO2 29.0 mm/L 23.0-27.0 Above high normal Istat CO2 HILDA ([facility]) istat creatinine 1.1 mg/dL 0.6-1.3 Istat Creatinine AT [facility]) ID Date Data Source [id number] 04/29/2020 04:04:00 PM EDT [place] ([facility]) Name Value Range Interpretation Code Description Data Ellie rce(s) Supporting Document(s) istat HCT 45.0 % 38.0-51.0 Istat HCT HILDA ([facility]) istat glucose 94 mg/dL 70-105 Istat Glucose HILDA ( [facility]) istat sodium 139 mEq/L 136-145 Istat Sodium HILDA ([facility]) istat potassium 4.0 mEq/L 3.5-5.1 Istat Potassium ATHE NA ([facility]) istat Ca++ 5.1 mg/dL 4.5-5.3 Istat Ca++ SAYNER ([facility]) istat CO2 29.0 mm/L 23.0-27.0 Above high normal Istat CO2 [facility] ([facility]) istat chloride 99 mEq/L 98-109 Istat Chloride HILDA ([facility]) istat BUN 19 mg/dL 8-26 Istat BUN HILDA ([facility]) istat creatinine 1.1 mg/dL 0.6-1.3 Istat Creatinine AT [facility] ([facility]) ID Date Data Source [id number] 04/29/2020 04:04:00 PM EDT HILDA ([facility]) Name Value Range Interpretation Code Description Data Ellie rce(s) Supporting Document(s) istat HCT 45.0 % 38.0-51.0 Istat HCT HILDA ([facility]) istat sodium 139 mEq/L 136-145 Istat Sodium H[facility]DA ([facility]) istat glucose 94 mg/dL 70-105 Istat Glucose HILDA ( [facility]) istat potassium 4.0 mEq/L 3.5-5.1 Istat Potassium ATHE NA ([facility]) istat Ca++ 5.1 mg/dL 4.5-5.3 Istat Ca++ HILDA ([facility]) istat CO2 29.0 mm/L 23.0-27.0 Above high normal Istat CO2 HILDA ([facility]) istat chloride 99 mEq/L 98-109 Istat Chloride HILDA ([facility]) istat creatinine 1.1 mg/dL 0.6-1.3 Istat Creatinine AT [facility] ([facility]) istat BUN 19 mg/dL 8-26 Istat BUN [facility]DA ([facility]) ID Date Data Source [id number] 04/29/2020 03:56:00 PM EDT [facility]) Name Value Range Interpretation Code Description Data Ellie rce(s) Supporting Document(s) glucose, fasting 97 mg/dL 70-100 Glucose, Fasting AT [facility]) glomerular filtration rate > 60.0 >60 Glomerula r Filtration Rate HILDA ([facility]) blood urea nitrogen 19 mg/dL 7-18 Above high normal Blood Ure a Nitrogen HILDA ([facility]) sodium level 137 mEq/L 136-145 Sodium Level HILDA ([facility]) creatinine for GFR 1.12 mg/dL 0.70-1.30 Creatinine for GF R HILDA ([facility]) chloride level 103 mEq/L 98-107 Chloride Level [facility] ([facility]) carbon dioxide level 31 mEq/L 21-32 Carbon Dioxide Level HILDA ([facility]) potassium serum 4.1 mEq/L 3.5-5.1 Potassium Serum ATHE NA ([facility]) anion gap 3 mEq/L 8-16 Below low normal Anion Gap HILDA ( [facility]) calcium level 9.3 mg/dL 8.5-10.1 Calcium Level [facility]) ID Date Data Source [id number] 04/29/2020 03:56:00 PM EDT [facility]) Name Value Range Interpretation Code Description Data Ellie rce(s) Supporting Document(s) ALT/SGPT 25 U/L 12-78 ALT/SGPT HILDA ([facility]) AST/SGOT 13 U/L 7-37 AST/SGOT HILDA ([facility]) bilirubin,total 0.5 mg/dL 0.2-1.0 Bilirubin,total ATHE ([facility]) bilirubin,direct 0.2 mg/dL 0.0-0.2 Bilirubin,direct AT [facility] ([facility]) total protein 7.0 gm/dL 6.4-8.2 Total Protein HILDA ( [facility]) alkaline phosphatase 76 U/L 45-117 Alkaline Phosph atase HIDLA ([facility]) albumin 4.0 gm/dL 3.2-5.2 Albumin HILDA ([facility]) albumin/globulin ratio Albumin/globu wu Ratio HILDA ([facility]) ID Date Data Source [id number] 04/29/2020 03:56:00 PM EDT HILDA ([facility]) Name Value Range Interpretation Code Description Data Ellie rce(s) Supporting Document(s) CK-mb value mass 1.1 NG/mL <3.6 CK-mb Value Mass AT [facility] ([facility]) CPK creatine phosphokinase 142 U/L 39-308 CPK Creat ine Phosphokinase HILDA ([facility]) troponin I < 0.02 < 0.10 Troponin I HILDA ([facility]) mb/CK relative index < or =4 mb/CK Relative Index HILDA ([facility]) ID Date Data Source [id number] 04/29/2020 03:56:00 PM EDT [facility] ([facility]) Name Value Range Interpretation Code Description Data Ellie rce(s) Supporting Document(s) partial thromboplastin time 30.8 seconds 24.2-38.5 [facility] ID Date Data Source [id number] 04/29/2020 03:56:00 PM EDT HILDA ([facility]) Name Value Range Interpretation Code Description Data Ellie rce(s) Supporting Document(s) prothrombin time 13.2 seconds 12.5-14.3 Prothrombin Time HILDA ([facility]) INR Inr HILDA ([facility]) ID Date Data Source [id number] 04/29/2020 03:56:00 PM EDT HILDA ([facility]) Name Value Range Interpretation Code Description Data Ellie rce(s) Supporting Document(s) white blood count 6.3 10 4.0-10.0 White Blood Count HILDA ([facility]) red blood count 5.45 10 4.30-6.10 Red Blood Count ATHE ([facility]) hematocrit 45.6 % 42.0-52.0 Hematocrit HILDA ([facility]) hemoglobin 15.1 g/dL 13.5-17.5 Hemoglobin HILDA ([facility]) mean corpuscular volume 83.7 fL 80.0-96.0 Mean Corpusc ular Volume HILDA ([facility]) mean corpuscular hemoglobin 27.7 pg 27.0-33.0 Mean Cor puscular Hemoglobin HILDA ([facility]) red cell distribution width 13.5 % 11.5-14.5 Red Cell Distribution Width HILDA ([facility]) mean corpuscular HGB conc 33.1 g/dL 32.0-36.5 Mean Corpu scular HGB Conc HILDA ([facility]) platelet count, automated 230 10 150-450 Platelet C ount, Automated HILDA ([facility]) mono % 9.6 % 2.0-8.0 Above high normal [place] % HILDA ([facility]) neutrophils % 53.2 % 36.0-66.0 Neutrophils % HILDA ( [facility]) lymph % 33.6 % 24.0-44.0 Lymph % HILDA ([facility]) immature granulocyte % 0.3 % 0-3.0 Immature Gran ulocyte % HILDA ([facility]) eos % 2.7 % 0.0-3.0 Eos % HILDA ([facility]) baso % 0.6 % 0.0-1.0 Baso % HILDA ([facility]) lymph # 2.1 10 1.5-5.0 Lymph # HILDA ([facility]) neutrophils # 3.4 10 1.5-8.5 Neutrophils # HILDA ( [facility]) nucleated red blood cell % 0.0 % 0-0 Nucleated Red Blood Cell % HILDA ([facility]) mono # 0.6 10 0.0-0.8 [place] # HILDA ([facility]) eos # 0.2 10 0.0-0.5 Eos # HILDA ([facility]) baso # 0.0 10 0.0-0.2 Baso # HILDA ([facility]) ID Date Data Source [id number] 04/29/2020 03:56:00 PM EDT [place] ([facility]) Name Value Range Interpretation Code Description Data Ellie rce(s) Supporting Document(s) creatinine for GFR 1.12 mg/dL 0.70-1.30 Creatinine for GF R SAYNER ([facility]) glucose, fasting 97 mg/dL 70-100 Glucose, Fasting AT [facility]) blood urea nitrogen 19 mg/dL 7-18 Above high normal Blood Ure a Nitrogen HILDA ([facility]) glomerular filtration rate > 60.0 >60 Glomerula r Filtration Rate HILDA ([facility]) carbon dioxide level 31 mEq/L 21-32 Carbon Dioxide Level HILDA ([facility]) chloride level 103 mEq/L 98-107 Chloride Level HILDA ([facility]) anion gap 3 mEq/L 8-16 Below low normal Anion Gap HILDA ( [facility]) potassium serum 4.1 mEq/L 3.5-5.1 Potassium Serum ATHE NA ([facility]) sodium level 137 mEq/L 136-145 Sodium Level HILDA ([facility]) calcium level 9.3 mg/dL 8.5-10.1 Calcium Level HILDA ( [facility]) ID Date Data Source [id number] 04/29/2020 03:56:00 PM EDT HILDA ([facility]) Name Value Range Interpretation Code Description Data Ellie rce(s) Supporting Document(s) ALT/SGPT 25 U/L 12-78 ALT/SGPT HILDA ([facility]) alkaline phosphatase 76 U/L 45-117 Alkaline Phosph atase HILDA ([facility]) AST/SGOT 13 U/L 7-37 AST/SGOT HILDA ([facility]) bilirubin,total 0.5 mg/dL 0.2-1.0 Bilirubin,total ATHE ([facility]) bilirubin,direct 0.2 mg/dL 0.0-0.2 Bilirubin,direct AT [facility] ([facility]) albumin/globulin ratio Albumin/globu wu Ratio HILDA ([facility]) albumin 4.0 gm/dL 3.2-5.2 Albumin HILDA ([facility]) total protein 7.0 gm/dL 6.4-8.2 Total Protein HILDA ( [facility]) ID Date Data Source [id number] 04/29/2020 03:56:00 PM EDT HILDA ([facility]) Name Value Range Interpretation Code Description Data Ellie rce(s) Supporting Document(s) CK-mb value mass 1.1 NG/mL <3.6 CK-mb Value Mass AT [facility] ([facility]) CPK creatine phosphokinase 142 U/L 39-308 CPK Creat ine Phosphokinase HILDA ([facility]) mb/CK relative index < or =4 mb/CK Relative Index HILDA ([facility]) troponin I < 0.02 < 0.10 Troponin I HILDA ([facility]) ID Date Data Source [id number] 04/29/2020 03:56:00 PM EDT HILDA ([facility]) Name Value Range Interpretation Code Description Data Ellie rce(s) Supporting Document(s) partial thromboplastin time 30.8 seconds 24.2-38.5 Partial Thromboplastin Time HILDA ([facility]) ID Date Data Source [id number] 04/29/2020 03:56:00 PM EDT HILDA ([facility]) Name Value Range Interpretation Code Description Data Ellie rce(s) Supporting Document(s) prothrombin time 13.2 seconds 12.5-14.3 Prothrombin Time HILDA ([facility]) INR Inr HILDA ([facility]) ID Date Data Source [id number] 04/29/2020 03:56:00 PM EDT HILDA ([facility]) Name Value Range Interpretation Code Description Data Ellie rce(s) Supporting Document(s) white blood count 6.3 10 4.0-10.0 White Blood Count HILDA ([facility]) hematocrit 45.6 % 42.0-52.0 Hematocrit HILDA ([facility]) red blood count 5.45 10 4.30-6.10 Red Blood Count ATHE ([facility]) hemoglobin 15.1 g/dL 13.5-17.5 Hemoglobin HILDA ([facility]) mean corpuscular volume 83.7 fL 80.0-96.0 Mean Corpusc ular Volume HILDA ([facility]) mean corpuscular HGB conc 33.1 g/dL 32.0-36.5 Mean Corpu scular HGB Conc HILDA ([facility]) mean corpuscular hemoglobin 27.7 pg 27.0-33.0 Mean Cor puscular Hemoglobin HILDA ([facility]) red cell distribution width 13.5 % 11.5-14.5 Red Cell Distribution Width HILDA ([facility]) platelet count, automated 230 10 150-450 Platelet C ount, Automated HILDA ([facility]) neutrophils % 53.2 % 36.0-66.0 Neutrophils % HILDA ( [facility]) mono % 9.6 % 2.0-8.0 Above high normal [place] % HILDA ([facility]) baso % 0.6 % 0.0-1.0 Baso % HILDA ([facility]) eos % 2.7 % 0.0-3.0 Eos % HILDA ([facility]) lymph % 33.6 % 24.0-44.0 Lymph % HILDA ([facility]) neutrophils # 3.4 10 1.5-8.5 Neutrophils # HILDA ( [facility]) nucleated red blood cell % 0.0 % 0-0 Nucleated Red Blood Cell % HILDA ([facility]) immature granulocyte % 0.3 % 0-3.0 Immature Gran ulocyte % SAYNER ([facility]) lymph # 2.1 10 1.5-5.0 Lymph # SAYNER ([facility]) baso # 0.0 10 0.0-0.2 Baso # HILDA ([facility]) mono # 0.6 10 0.0-0.8 [place] # HILDA ([facility]) eos # 0.2 10 0.0-0.5 Eos # HILDA ([facility]) ID Date Data Source [id number] 04/29/2020 03:56:00 PM EDT S[place] ([facility]) Name Value Range Interpretation Code Description Data Ellie rce(s) Supporting Document(s) glomerular filtration rate > 60.0 >60 Glomerula r Filtration Rate SAYNER ([facility]) creatinine for GFR 1.12 mg/dL 0.70-1.30 Creatinine for GF R SAYNER ([facility]) glucose, fasting 97 mg/dL 70-100 Glucose, Fasting AT [facility]) blood urea nitrogen 19 mg/dL 7-18 Above high normal Blood Ure a Nitrogen HILDA ([facility]) sodium level 137 mEq/L 136-145 Sodium Level HILDA ([facility]) carbon dioxide level 31 mEq/L 21-32 Carbon Dioxide Level SAYNER ([facility]) anion gap 3 mEq/L 8-16 Below low normal Anion Gap SAYNER ( [facility]) potassium serum 4.1 mEq/L 3.5-5.1 Potassium Serum ATHE NA ([facility]) chloride level 103 mEq/L 98-107 Chloride Level HILDA ([facility]) calcium level 9.3 mg/dL 8.5-10.1 Calcium Level HILDA ( [facility]) ID Date Data Source [id number] 04/29/2020 03:56:00 PM EDT HILDA ([facility]) Name Value Range Interpretation Code Description Data Ellie rce(s) Supporting Document(s) AST/SGOT 13 U/L 7-37 AST/SGOT HILDA ([facility]) ALT/SGPT 25 U/L 12-78 ALT/SGPT HILDA ([facility]) total protein 7.0 gm/dL 6.4-8.2 Total Protein HILDA ( [facility]) bilirubin,total 0.5 mg/dL 0.2-1.0 Bilirubin,total ATHE ([facility]) bilirubin,direct 0.2 mg/dL 0.0-0.2 Bilirubin,direct AT [facility] ([facility]) alkaline phosphatase 76 U/L 45-117 Alkaline Phosph atase HILDA ([facility]) albumin 4.0 gm/dL 3.2-5.2 Albumin HILDA ([facility]) albumin/globulin ratio Albumin/globu wu Ratio HILDA ([facility]) ID Date Data Source [id number] 04/29/2020 03:56:00 PM EDT HILDA ([facility]) Name Value Range Interpretation Code Description Data Ellie rce(s) Supporting Document(s) CK-mb value mass 1.1 NG/mL <3.6 CK-mb Value Mass AT [facility] ([facility]) CPK creatine phosphokinase 142 U/L 39-308 CPK Creat ine Phosphokinase HILDA ([facility]) troponin I < 0.02 < 0.10 Troponin I HILDA ([facility]) mb/CK relative index < or =4 mb/CK Relative Index HILDA ([facility]) ID Date Data Source [id number] 04/29/2020 03:56:00 PM EDT HILDA ([facility]) Name Value Range Interpretation Code Description Data Ellie rce(s) Supporting Document(s) partial thromboplastin time 30.8 seconds 24.2-38.5 Partial Thromboplastin Time HILDA ([facility]) ID Date Data Source [id number] 04/29/2020 03:56:00 PM EDT HILDA ([facility]) Name Value Range Interpretation Code Description Data Ellie rce(s) Supporting Document(s) INR Inr HILDA ([facility]) prothrombin time 13.2 seconds 12.5-14.3 Prothrombin Time HILDA ([facility]) ID Date Data Source [id number] 04/29/2020 03:56:00 PM EDT HILDA ([facility]) Name Value Range Interpretation Code Description Data Ellie rce(s) Supporting Document(s) red blood count 5.45 10 4.30-6.10 Red Blood Count ATHE ([facility]) white blood count 6.3 10 4.0-10.0 White Blood Count HILDA ([facility]) hemoglobin 15.1 g/dL 13.5-17.5 Hemoglobin HILDA ([facility]) hematocrit 45.6 % 42.0-52.0 Hematocrit HILDA ([facility]) mean corpuscular volume 83.7 fL 80.0-96.0 Mean Corpusc ular Volume HILDA ([facility]) platelet count, automated 230 10 150-450 Platelet C ount, Automated HILDA ([facility]) red cell distribution width 13.5 % 11.5-14.5 Red Cell Distribution Width HILDA ([facility]) mean corpuscular hemoglobin 27.7 pg 27.0-33.0 Mean Cor puscular Hemoglobin HILDA ([facility]) mean corpuscular HGB conc 33.1 g/dL 32.0-36.5 Mean Corpu scular HGB Conc HILDA ([facility]) neutrophils % 53.2 % 36.0-66.0 Neutrophils % HILDA ( [facility]) lymph % 33.6 % 24.0-44.0 Lymph % HILDA ([facility]) mono % 9.6 % 2.0-8.0 Above high normal [place] % HILDA ([facility]) eos % 2.7 % 0.0-3.0 Eos % HILDA ([facility]) baso % 0.6 % 0.0-1.0 Baso % SAYNER ([facility]) immature granulocyte % 0.3 % 0-3.0 Immature Gran ulocyte % SAYNER ([facility]) neutrophils # 3.4 10 1.5-8.5 Neutrophils # HILDA ( [facility]) nucleated red blood cell % 0.0 % 0-0 Nucleated Red Blood Cell % HILDA ([facility]) mono # 0.6 10 0.0-0.8 [place] # HILDA ([facility]) baso # 0.0 10 0.0-0.2 Baso # HILDA ([facility]) lymph # 2.1 10 1.5-5.0 Lymph # HILDA ([facility]) eos # 0.2 10 0.0-0.5 Eos # HILDA ([facility]) ID Date Data Source [id number] 04/29/2020 03:56:00 PM EDT [facility] ([facility]) Name Value Range Interpretation Code Description Data Ellie rce(s) Supporting Document(s) CPK creatine phosphokinase 142 U/L 39-308 CPK Creat ine Phosphokinase HILDA ([facility]) mb/CK relative index < or =4 mb/CK Relative Index HILDA ([facility]) CK-mb value mass 1.1 NG/mL <3.6 CK-mb Value Mass AT [facility]) troponin I < 0.02 < 0.10 Troponin I HILDA ([facility]) ID Date Data Source [id number] 04/29/2020 03:56:00 PM EDT HILDA ([facility]) Name Value Range Interpretation Code Description Data Ellie rce(s) Supporting Document(s) partial thromboplastin time 30.8 seconds 24.2-38.5 Partial Thromboplastin Time HILDA ([facility]) ID Date Data Source [id number] 04/29/2020 03:56:00 PM EDT HILDA ([facility]) Name Value Range Interpretation Code Description Data Ellie rce(s) Supporting Document(s) prothrombin time 13.2 seconds 12.5-14.3 Prothrombin Time HILDA ([facility]) INR Inr HILDA ([facility]) ID Date Data Source [id number] 04/29/2020 03:56:00 PM EDT HILDA ([facility]) Name Value Range Interpretation Code Description Data Ellie rce(s) Supporting Document(s) white blood count 6.3 10 4.0-10.0 White Blood Count HILDA ([facility]) red blood count 5.45 10 4.30-6.10 Red Blood Count ATHE ([facility]) hemoglobin 15.1 g/dL 13.5-17.5 Hemoglobin HILDA ([facility]) mean corpuscular volume 83.7 fL 80.0-96.0 Mean Corpusc ular Volume HILDA ([facility]) mean corpuscular hemoglobin 27.7 pg 27.0-33.0 Mean Cor puscular Hemoglobin HILDA ([facility]) hematocrit 45.6 % 42.0-52.0 Hematocrit HILDA ([facility]) red cell distribution width 13.5 % 11.5-14.5 Red Cell Distribution Width HILDA ([facility]) mean corpuscular HGB conc 33.1 g/dL 32.0-36.5 Mean Corpu scular HGB Conc HILDA ([facility]) platelet count, automated 230 10 150-450 Platelet C ount, Automated [facility] ([facility]) mono % 9.6 % 2.0-8.0 Above high normal [place] % HILDA ([facility]) lymph % 33.6 % 24.0-44.0 Lymph % [facility]NER ([facility]) neutrophils % 53.2 % 36.0-66.0 Neutrophils % SAYNER ( [facility]) eos % 2.7 % 0.0-3.0 Eos % S[facility]NER ([facility]) baso % 0.6 % 0.0-1.0 Baso % S[facility]NER ([facility]) immature granulocyte % 0.3 % 0-3.0 Immature Gran ulocyte % [facility]NER ([facility]) nucleated red blood cell % 0.0 % 0-0 Nucleated Red Blood Cell % [facility]NER ([facility]) neutrophils # 3.4 10 1.5-8.5 Neutrophils # SAYNER ( [facility]) lymph # 2.1 10 1.5-5.0 Lymph # [facility] ([facility]) mono # 0.6 10 0.0-0.8 [place] # SAYNER ([facility]) eos # 0.2 10 0.0-0.5 Eos # [facility]NER ([facility]) baso # 0.0 10 0.0-0.2 Baso # [facility] ([facility]) ID Date Data Source [id number] 04/29/2020 03:56:00 PM EDT [facility] ([facility]) Name Value Range Interpretation Code Description Data Ellie rce(s) Supporting Document(s) blood urea nitrogen 19 mg/dL 7-18 Above high normal Blood Ure a Nitrogen [facility]NER ([facility]) creatinine for GFR 1.12 mg/dL 0.70-1.30 Creatinine for GF R S[facility]NER ([facility]) glucose, fasting 97 mg/dL 70-100 Glucose, Fasting AT [facility]) chloride level 103 mEq/L 98-107 Chloride Level [facility]NER ([facility]) sodium level 137 mEq/L 136-145 Sodium Level HILDA ([facility]) potassium serum 4.1 mEq/L 3.5-5.1 Potassium Serum ATHE NA ([facility]) carbon dioxide level 31 mEq/L 21-32 Carbon Dioxide Level HILDA ([facility]) glomerular filtration rate > 60.0 >60 Glomerula r Filtration Rate HILDA ([facility]) calcium level 9.3 mg/dL 8.5-10.1 Calcium Level HILDA ( [facility]) anion gap 3 mEq/L 8-16 Below low normal Anion Gap HILDA ( [facility]) ID Date Data Source [id number] 04/29/2020 03:56:00 PM EDT HILDA ([facility]) Name Value Range Interpretation Code Description Data Ellie rce(s) Supporting Document(s) AST/SGOT 13 U/L 7-37 AST/SGOT HILDA ([facility]) bilirubin,direct 0.2 mg/dL 0.0-0.2 Bilirubin,direct AT [facility]) ALT/SGPT 25 U/L 12-78 ALT/SGPT HILDA ([facility]) bilirubin,total 0.5 mg/dL 0.2-1.0 Bilirubin,total ATHE ([facility]) alkaline phosphatase 76 U/L 45-117 Alkaline Phosph atase HILDA ([facility]) albumin/globulin ratio Albumin/globu wu Ratio HILDA ([facility]) albumin 4.0 gm/dL 3.2-5.2 Albumin HILDA ([facility]) total protein 7.0 gm/dL 6.4-8.2 Total Protein HILDA ( [facility]) ID Date Data Source [id number] 04/29/2020 03:56:00 PM [facility] Name Value Range Interpretation Code Description Data Ellie rce(s) Supporting Document(s) mb/CK relative index < or =4 mb/CK Relative Index [facility]ILDA ([facility]) CPK creatine phosphokinase 142 U/L 39-308 CPK Creat ine Phosphokinase [facility]ILDA ([facility]) CK-mb value mass 1.1 NG/mL <3.6 CK-mb Value Mass AT [facility] ([facility]) troponin I < 0.02 < 0.10 Troponin I [facility]ILDA ([facility]) ID Date Data Source [id number] 04/29/2020 03:56:00 PM EDT [facility] ([facility]) Name Value Range Interpretation Code Description Data Ellie rce(s) Supporting Document(s) partial thromboplastin time 30.8 seconds 24.2-38.5 Partial Thromboplastin Time [facility]DA ([facility]) ID Date Data Source [id number] 04/29/2020 03:56:00 PM EDT HILDA ([facility]) Name Value Range Interpretation Code Description Data Ellie rce(s) Supporting Document(s) prothrombin time 13.2 seconds 12.5-14.3 Prothrombin Time HILDA ([facility]) INR Inr HILDA ([facility]) ID Date Data Source [id number] 04/29/2020 03:56:00 PM EDT HILDA ([facility]) Name Value Range Interpretation Code Description Data Ellie rce(s) Supporting Document(s) white blood count 6.3 10 4.0-10.0 White Blood Count HILDA ([facility]) hemoglobin 15.1 g/dL 13.5-17.5 Hemoglobin HILDA ([facility]) red blood count 5.45 10 4.30-6.10 Red Blood Count ATHE NA ([facility]) hematocrit 45.6 % 42.0-52.0 Hematocrit HILDA ([facility]) mean corpuscular hemoglobin 27.7 pg 27.0-33.0 Mean Cor puscular Hemoglobin HILDA ([facility]) mean corpuscular volume 83.7 fL 80.0-96.0 Mean Corpusc ular Volume SAYNER ([facility]) red cell distribution width 13.5 % 11.5-14.5 Red Cell Distribution Width [facility]AYNER ([facility]) platelet count, automated 230 10 150-450 Platelet C ount, Automated S[facility]NER ([facility]) mean corpuscular HGB conc 33.1 g/dL 32.0-36.5 Mean Corpu scular HGB Conc SAYNER ([facility]) mono % 9.6 % 2.0-8.0 Above high normal [place] % SAYNER ([facility]) lymph % 33.6 % 24.0-44.0 Lymph % SAYNER ([facility]) neutrophils % 53.2 % 36.0-66.0 Neutrophils % SAYNER ( [facility]) immature granulocyte % 0.3 % 0-3.0 Immature Gran ulocyte % SAYNER ([facility]) eos % 2.7 % 0.0-3.0 Eos % SAYNER ([facility]) baso % 0.6 % 0.0-1.0 Baso % SAYNER ([facility]) neutrophils # 3.4 10 1.5-8.5 Neutrophils # SAYNER ( [facility]) nucleated red blood cell % 0.0 % 0-0 Nucleated Red Blood Cell % SAYNER ([facility]) mono # 0.6 10 0.0-0.8 [place] # HILDA ([facility]) lymph # 2.1 10 1.5-5.0 Lymph # HILDA ([facility]) eos # 0.2 10 0.0-0.5 Eos # HILDA ([facility]) baso # 0.0 10 0.0-0.2 Baso # HILDA ([facility]) ID Date Data Source [id number] 04/29/2020 03:56:00 PM EDT [facility] ([facility]) Name Value Range Interpretation Code Description Data Ellie rce(s) Supporting Document(s) glucose, fasting 97 mg/dL 70-100 Glucose, Fasting AT [facility] ([facility]) creatinine for GFR 1.12 mg/dL 0.70-1.30 Creatinine for GF R HILDA ([facility]) glomerular filtration rate > 60.0 >60 Glomer[place] r Filtration Rate HILDA ([facility]) blood urea nitrogen 19 mg/dL 7-18 Above high normal Blood Ure a Nitrogen HILDA ([facility]) sodium level 137 mEq/L 136-145 Sodium Level HILDA ([facility]) chloride level 103 mEq/L 98-107 Chloride Level HILDA ([facility]) potassium serum 4.1 mEq/L 3.5-5.1 Potassium Serum ATHE NA ([facility]) calcium level 9.3 mg/dL 8.5-10.1 Calcium Level HILDA ( [facility]) carbon dioxide level 31 mEq/L 21-32 Carbon Dioxide Level HILDA ([facility]) anion gap 3 mEq/L 8-16 Below low normal Anion Gap HILDA ( [facility]) ID Date Data Source [id number] 04/29/2020 03:56:00 PM EDT HILDA ([facility]) Name Value Range Interpretation Code Description Data Ellie rce(s) Supporting Document(s) AST/SGOT 13 U/L 7-37 AST/SGOT HILDA ([facility]) ALT/SGPT 25 U/L 12-78 ALT/SGPT HILDA ([facility]) bilirubin,direct 0.2 mg/dL 0.0-0.2 Bilirubin,direct AT [facility]) alkaline phosphatase 76 U/L 45-117 Alkaline Phosph atase HILDA ([facility]) bilirubin,total 0.5 mg/dL 0.2-1.0 Bilirubin,total ATHE NA ([facility]) albumin 4.0 gm/dL 3.2-5.2 Albumin HILDA ([facility]) total protein 7.0 gm/dL 6.4-8.2 Total Protein HILDA ( [facility]) albumin/globulin ratio Albumin/globu wu Ratio HILDA ([facility]) ID Date Data Source [id number] 04/29/2020 03:56:00 PM EDT HILDA ([facility]) Name Value Range Interpretation Code Description Data Ellie rce(s) Supporting Document(s) CPK creatine phosphokinase 142 U/L 39-308 CPK Creat ine Phosphokinase HILDA ([facility]) mb/CK relative index < or =4 mb/CK Relative Index HILDA ([facility]) troponin I < 0.02 < 0.10 Troponin I HILDA ([facility]) CK-mb value mass 1.1 NG/mL <3.6 CK-mb Value Mass AT SHANI ([facility]) ID Date Data Source [id number] 04/29/2020 03:56:00 PM EDT HILDA ([facility]) Name Value Range Interpretation Code Description Data Ellie rce(s) Supporting Document(s) partial thromboplastin time 30.8 seconds 24.2-38.5 Partial Thromboplastin Time [facility]ILDA ([facility]) ID Date Data Source [id number] 04/29/2020 03:56:00 PM EDT HILDA ([facility]) Name Value Range Interpretation Code Description Data Ellie rce(s) Supporting Document(s) INR Inr HILDA ([facility]) prothrombin time 13.2 seconds 12.5-14.3 Prothrombin Time [facility]DA ([facility]) ID Date Data Source [id number] 04/29/2020 03:56:00 PM EDT HILDA ([facility]) Name Value Range Interpretation Code Description Data Ellie rce(s) Supporting Document(s) white blood count 6.3 10 4.0-10.0 White Blood Count HILDA ([facility]) red blood count 5.45 10 4.30-6.10 Red Blood Count ATHE ([facility]) hemoglobin 15.1 g/dL 13.5-17.5 Hemoglobin HILDA ([facility]) mean corpuscular volume 83.7 fL 80.0-96.0 Mean Corpusc ular Volume HILDA ([facility]) hematocrit 45.6 % 42.0-52.0 Hematocrit HILDA ([facility]) mean corpuscular HGB conc 33.1 g/dL 32.0-36.5 Mean Corpu scular HGB Conc HILDA ([facility]) mean corpuscular hemoglobin 27.7 pg 27.0-33.0 Mean Cor puscular Hemoglobin HILDA ([facility]) red cell distribution width 13.5 % 11.5-14.5 Red Cell Distribution Width HILDA ([facility]) neutrophils % 53.2 % 36.0-66.0 Neutrophils % HILDA ( [facility]) lymph % 33.6 % 24.0-44.0 Lymph % S[facility]NER ([facility]) platelet count, automated 230 10 150-450 Platelet C ount, Automated HILDA ([facility]) mono % 9.6 % 2.0-8.0 Above high normal [place] % HILDA ([facility]) eos % 2.7 % 0.0-3.0 Eos % HILDA ([facility]) baso % 0.6 % 0.0-1.0 Baso % SAYNER ([facility]) immature granulocyte % 0.3 % 0-3.0 Immature Gran ulocyte % HILDA ([facility]) neutrophils # 3.4 10 1.5-8.5 Neutrophils # HILDA ( [facility]) nucleated red blood cell % 0.0 % 0-0 Nucleated Red Blood Cell % HILDA ([facility]) lymph # 2.1 10 1.5-5.0 Lymph # HILDA ([facility]) baso # 0.0 10 0.0-0.2 Baso # HILDA ([facility]) eos # 0.2 10 0.0-0.5 Eos # [facility]ILDA ([facility]) mono # 0.6 10 0.0-0.8 [place] # HILDA ([facility]) ID Date Data Source [id number] 04/29/2020 03:56:00 PM EDT HILDA ([facility]) Name Value Range Interpretation Code Description Data Ellie rce(s) Supporting Document(s) creatinine for GFR 1.12 mg/dL 0.70-1.30 Creatinine for GF R HILDA ([facility]) glucose, fasting 97 mg/dL 70-100 Glucose, Fasting AT [facility]) blood urea nitrogen 19 mg/dL 7-18 Above high normal Blood Ure a Nitrogen HILDA ([facility]) sodium level 137 mEq/L 136-145 Sodium Level HILDA ([facility]) potassium serum 4.1 mEq/L 3.5-5.1 Potassium Serum ATHE ([facility]) glomerular filtration rate > 60.0 >60 [place] r Filtration Rate SAYNER ([facility]) chloride level 103 mEq/L 98-107 Chloride Level [facility]) anion gap 3 mEq/L 8-16 Below low normal Anion Gap HILDA ( [facility]) calcium level 9.3 mg/dL 8.5-10.1 Calcium Level HILDA ( [facility]) carbon dioxide level 31 mEq/L 21-32 Carbon Dioxide Level SAYNER ([facility]) ID Date Data Source [id number] 04/29/2020 03:56:00 PM EDT [facility]) Name Value Range Interpretation Code Description Data Ellie rce(s) Supporting Document(s) AST/SGOT 13 U/L 7-37 AST/SGOT HILDA ([facility]) bilirubin,total 0.5 mg/dL 0.2-1.0 Bilirubin,total ATHE ([facility]) alkaline phosphatase 76 U/L 45-117 Alkaline Phosph atase HILDA ([facility]) ALT/SGPT 25 U/L 12-78 ALT/SGPT SAYNER ([facility]) total protein 7.0 gm/dL 6.4-8.2 Total Protein HILDA ( [facility]) bilirubin,direct 0.2 mg/dL 0.0-0.2 Bilirubin,direct AT [facility] ([facility]) albumin/globulin ratio Albumin/globu wu Ratio HILDA ([facility]) albumin 4.0 gm/dL 3.2-5.2 Albumin HILDA ([facility]) ID Date Data Source [id number] 04/29/2020 03:56:00 PM EDT HILDA ([facility]) Name Value Range Interpretation Code Description Data Ellie rce(s) Supporting Document(s) mb/CK relative index < or =4 mb/CK Relative Index HILDA ([facility]) CK-mb value mass 1.1 NG/mL <3.6 CK-mb Value Mass AT [facility] ([facility]) CPK creatine phosphokinase 142 U/L 39-308 CPK Creat ine Phosphokinase HIDLA ([facility]) troponin I < 0.02 < 0.10 Troponin I [facility]NER ([facility]) ID Date Data Source [id number] 04/29/2020 03:56:00 PM EDT HILDA ([facility]) Name Value Range Interpretation Code Description Data Ellie rce(s) Supporting Document(s) partial thromboplastin time 30.8 seconds 24.2-38.5 Partial Thromboplastin Time HILDA ([facility]) ID Date Data Source [id number] 04/29/2020 03:56:00 PM EDT HILDA ([facility]) Name Value Range Interpretation Code Description Data Ellie rce(s) Supporting Document(s) INR Inr HILDA ([facility]) prothrombin time 13.2 seconds 12.5-14.3 Prothrombin Time HILDA ([facility]) ID Date Data Source [id number] 04/29/2020 03:56:00 PM EDT HILDA ([facility]) Name Value Range Interpretation Code Description Data Ellie rce(s) Supporting Document(s) white blood count 6.3 10 4.0-10.0 White Blood Count HILDA ([facility]) hematocrit 45.6 % 42.0-52.0 Hematocrit HILDA ([facility]) hemoglobin 15.1 g/dL 13.5-17.5 Hemoglobin HILDA ([facility]) red blood count 5.45 10 4.30-6.10 Red Blood Count ATHE NA ([facility]) mean corpuscular HGB conc 33.1 g/dL 32.0-36.5 Mean Corpu scular HGB Conc HILDA ([facility]) mean corpuscular hemoglobin 27.7 pg 27.0-33.0 Mean Cor puscular Hemoglobin HILDA ([facility]) mean corpuscular volume 83.7 fL 80.0-96.0 Mean Corpusc ular Volume HILDA ([facility]) lymph % 33.6 % 24.0-44.0 Lymph % HILDA ([facility]) red cell distribution width 13.5 % 11.5-14.5 Red Cell Distribution Width HILDA ([facility]) platelet count, automated 230 10 150-450 Platelet C ount, Automated HILDA ([facility]) neutrophils % 53.2 % 36.0-66.0 Neutrophils % HILDA ( [facility]) eos % 2.7 % 0.0-3.0 Eos % HILDA ([facility]) baso % 0.6 % 0.0-1.0 Baso % HILDA ([facility]) mono % 9.6 % 2.0-8.0 Above high normal [place] % HILDA ([facility]) neutrophils # 3.4 10 1.5-8.5 Neutrophils # HILDA ( [facility]) nucleated red blood cell % 0.0 % 0-0 Nucleated Red Blood Cell % HILDA ([facility]) immature granulocyte % 0.3 % 0-3.0 Immature Gran ulocyte % HILDA ([facility]) baso # 0.0 10 0.0-0.2 Baso # HILDA ([facility]) mono # 0.6 10 0.0-0.8 [place] # HILDA ([facility]) eos # 0.2 10 0.0-0.5 Eos # HILDA ([facility]) lymph # 2.1 10 1.5-5.0 Lymph # HILDA ([facility]) ID Date Data Source [id number] 04/29/2020 03:56:00 PM EDT SAYNER ([facility]) Name Value Range Interpretation Code Description Data Ellie rce(s) Supporting Document(s) glucose, fasting 97 mg/dL 70-100 Glucose, Fasting AT [facility]) glomerular filtration rate > 60.0 >60 Glomer[place] r Filtration Rate HILDA ([facility]) sodium level 137 mEq/L 136-145 Sodium Level SAYNER ([facility]) creatinine for GFR 1.12 mg/dL 0.70-1.30 Creatinine for GF R SAYNER ([facility]) blood urea nitrogen 19 mg/dL 7-18 Above high normal Blood Ure a Nitrogen HILDA ([facility]) carbon dioxide level 31 mEq/L 21-32 Carbon Dioxide Level HILDA ([facility]) chloride level 103 mEq/L 98-107 Chloride Level [facility]NER ([facility]) potassium serum 4.1 mEq/L 3.5-5.1 Potassium Serum [facility] ([facility]) anion gap 3 mEq/L 8-16 Below low normal Anion Gap SAYNER ( [facility]) calcium level 9.3 mg/dL 8.5-10.1 Calcium Level SAYNER ( [facility]) ID Date Data Source [id number] 04/29/2020 03:56:00 PM EDT [facility]AYNER ([facility]) Name Value Range Interpretation Code Description Data Ellie rce(s) Supporting Document(s) AST/SGOT 13 U/L 7-37 AST/SGOT [facility] ([facility]) alkaline phosphatase 76 U/L 45-117 Alkaline Phosph atase [facility]NER ([facility]) bilirubin,direct 0.2 mg/dL 0.0-0.2 Bilirubin,direct AT [facility]) bilirubin,total 0.5 mg/dL 0.2-1.0 Bilirubin,total ATHE NA ([facility]) ALT/SGPT 25 U/L 12-78 ALT/SGPT HILDA ([facility]) albumin 4.0 gm/dL 3.2-5.2 Albumin HILDA ([facility]) total protein 7.0 gm/dL 6.4-8.2 Total Protein HILDA ( [facility]) albumin/globulin ratio Albumin/globu wu Ratio HILDA ([facility]) ID Date Data Source [id number] 04/29/2020 03:56:00 PM EDT HILDA ([facility]) Name Value Range Interpretation Code Description Data Ellie rce(s) Supporting Document(s) CPK creatine phosphokinase 142 U/L 39-308 CPK Creat ine Phosphokinase HILDA ([facility]) mb/CK relative index < or =4 mb/CK Relative Index [facility]ILDA ([facility]) troponin I < 0.02 < 0.10 Troponin I HILDA ([facility]) CK-mb value mass 1.1 NG/mL <3.6 CK-mb Value Mass AT [facility] ([facility]) ID Date Data Source [id number] 04/29/2020 03:56:00 PM EDT HILDA ([facility]) Name Value Range Interpretation Code Description Data Ellie rce(s) Supporting Document(s) partial thromboplastin time 30.8 seconds 24.2-38.5 Partial Thromboplastin Time HILDA ([facility]) ID Date Data Source [id number] 04/29/2020 03:56:00 PM EDT HILDA ([facility]) Name Value Range Interpretation Code Description Data Ellie rce(s) Supporting Document(s) prothrombin time 13.2 seconds 12.5-14.3 Prothrombin Time HILDA ([facility]) INR Inr HILDA ([facility]) ID Date Data Source [id number] 04/29/2020 03:56:00 PM EDT HILDA ([facility]) Name Value Range Interpretation Code Description Data Ellie rce(s) Supporting Document(s) white blood count 6.3 10 4.0-10.0 White Blood Count HILDA ([facility]) red blood count 5.45 10 4.30-6.10 Red Blood Count ATHE NA ([facility]) hematocrit 45.6 % 42.0-52.0 Hematocrit HILDA ([facility]) hemoglobin 15.1 g/dL 13.5-17.5 Hemoglobin HILDA ([facility]) mean corpuscular volume 83.7 fL 80.0-96.0 Mean Corpusc ular Volume HILDA ([facility]) mean corpuscular HGB conc 33.1 g/dL 32.0-36.5 Mean Corpu scular HGB Conc HILDA ([facility]) mean corpuscular hemoglobin 27.7 pg 27.0-33.0 Mean Cor puscular Hemoglobin HILDA ([facility]) platelet count, automated 230 10 150-450 Platelet C ount, Automated HILDA ([facility]) neutrophils % 53.2 % 36.0-66.0 Neutrophils % SAYNER ( [facility]) red cell distribution width 13.5 % 11.5-14.5 Red Cell Distribution Width [facility]ILDA ([facility]) mono % 9.6 % 2.0-8.0 Above high normal [place] % HILDA ([facility]) eos % 2.7 % 0.0-3.0 Eos % HILDA ([facility]) lymph % 33.6 % 24.0-44.0 Lymph % HILDA ([facility]) immature granulocyte % 0.3 % 0-3.0 Immature Gran ulocyte % HILDA ([facility]) baso % 0.6 % 0.0-1.0 Baso % HILDA ([facility]) nucleated red blood cell % 0.0 % 0-0 Nucleated Red Blood Cell % [facility]ILDA ([facility]) mono # 0.6 10 0.0-0.8 [place] # HILDA ([facility]) neutrophils # 3.4 10 1.5-8.5 Neutrophils # HILDA ( [facility]) eos # 0.2 10 0.0-0.5 Eos # HILDA ([facility]) lymph # 2.1 10 1.5-5.0 Lymph # HILDA ([facility]) baso # 0.0 10 0.0-0.2 Baso # HILDA ([facility]) ID Date Data Source [id number] 04/29/2020 03:56:00 PM EDT [facility] ([facility]) Name Value Range Interpretation Code Description Data Ellie rce(s) Supporting Document(s) glucose, fasting 97 mg/dL 70-100 Glucose, Fasting AT [facility]) blood urea nitrogen 19 mg/dL 7-18 Above high normal Blood Ure a Nitrogen [facility]NER ([facility]) creatinine for GFR 1.12 mg/dL 0.70-1.30 Creatinine for GF R [facility] ([facility]) potassium serum 4.1 mEq/L 3.5-5.1 Potassium Serum ATHE NA ([facility]) glomerular filtration rate > 60.0 >60 Glomer[place] r Filtration Rate [facility]NER ([facility]) sodium level 137 mEq/L 136-145 Sodium Level HILDA ([facility]) chloride level 103 mEq/L 98-107 Chloride Level HILDA ([facility]) anion gap 3 mEq/L 8-16 Below low normal Anion Gap S[facility]NER ( [facility]) calcium level 9.3 mg/dL 8.5-10.1 Calcium Level S[facility]NER ( [facility]) carbon dioxide level 31 mEq/L 21-32 Carbon Dioxide Level [facility] ([facility]) ID Date Data Source [id number] 04/29/2020 03:56:00 PM EDT [facility] ([facility]) Name Value Range Interpretation Code Description Data Ellie rce(s) Supporting Document(s) AST/SGOT 13 U/L 7-37 AST/SGOT HILDA ([facility]) ALT/SGPT 25 U/L 12-78 ALT/SGPT HILDA ([facility]) bilirubin,total 0.5 mg/dL 0.2-1.0 Bilirubin,total ATHE ([facility]) bilirubin,direct 0.2 mg/dL 0.0-0.2 Bilirubin,direct AT [facility] ([facility]) alkaline phosphatase 76 U/L 45-117 Alkaline Phosph atase HILDA ([facility]) albumin 4.0 gm/dL 3.2-5.2 Albumin HILDA ([facility]) albumin/globulin ratio Albumin/globu wu Ratio HILDA ([facility]) total protein 7.0 gm/dL 6.4-8.2 Total Protein HILDA ( [facility]) ID Date Data Source [id number] 04/29/2020 03:56:00 PM EDT HILDA ([facility]) Name Value Range Interpretation Code Description Data Ellie rce(s) Supporting Document(s) CK-mb value mass 1.1 NG/mL <3.6 CK-mb Value Mass AT [facility] ([facility]) CPK creatine phosphokinase 142 U/L 39-308 CPK Creat ine Phosphokinase HILDA ([facility]) mb/CK relative index < or =4 mb/CK Relative Index [facility]ILDA ([facility]) troponin I < 0.02 < 0.10 Troponin I [facility]DA ([facility]) ID Date Data Source [id number] 04/29/2020 03:56:00 PM EDT HILDA ([facility]) Name Value Range Interpretation Code Description Data Ellie rce(s) Supporting Document(s) partial thromboplastin time 30.8 seconds 24.2-38.5 Partial Thromboplastin Time [facility]ILDA ([facility]) ID Date Data Source [id number] 04/29/2020 03:56:00 PM EDT HILDA ([facility]) Name Value Range Interpretation Code Description Data Ellie rce(s) Supporting Document(s) prothrombin time 13.2 seconds 12.5-14.3 Prothrombin Time [facility]DA ([facility]) INR Inr HILDA ([facility]) ID Date Data Source [id number] 04/29/2020 03:56:00 PM EDT HILDA ([facility]) Name Value Range Interpretation Code Description Data Ellie rce(s) Supporting Document(s) white blood count 6.3 10 4.0-10.0 White Blood Count HILDA ([facility]) red blood count 5.45 10 4.30-6.10 Red Blood Count ATHE ([facility]) hemoglobin 15.1 g/dL 13.5-17.5 Hemoglobin HILDA ([facility]) hematocrit 45.6 % 42.0-52.0 Hematocrit H[facility]DA ([facility]) mean corpuscular HGB conc 33.1 g/dL 32.0-36.5 Mean Corpu scular HGB Conc HILDA ([facility]) mean corpuscular hemoglobin 27.7 pg 27.0-33.0 Mean Cor puscular Hemoglobin [facility]ILDA ([facility]) mean corpuscular volume 83.7 fL 80.0-96.0 Mean Corpusc ular Volume HILDA ([facility]) platelet count, automated 230 10 150-450 Platelet C ount, Automated HILDA ([facility]) red cell distribution width 13.5 % 11.5-14.5 Red Cell Distribution Width [facility]DA ([facility]) neutrophils % 53.2 % 36.0-66.0 Neutrophils % HILDA ( [facility]) lymph % 33.6 % 24.0-44.0 Lymph % HILDA ([facility]) eos % 2.7 % 0.0-3.0 Eos % HILDA ([facility]) mono % 9.6 % 2.0-8.0 Above high normal [place] % HILDA ([facility]) baso % 0.6 % 0.0-1.0 Baso % HILDA ([facility]) nucleated red blood cell % 0.0 % 0-0 Nucleated Red Blood Cell % [facility] ([facility]) immature granulocyte % 0.3 % 0-3.0 Immature Gran ulocyte % [facility]DA ([facility]) mono # 0.6 10 0.0-0.8 [place] # HILDA ([facility]) neutrophils # 3.4 10 1.5-8.5 Neutrophils # HILDA ( [facility]) lymph # 2.1 10 1.5-5.0 Lymph # HILDA ([facility]) eos # 0.2 10 0.0-0.5 Eos # HILDA ([facility]) baso # 0.0 10 0.0-0.2 Baso # [facility]NER ([facility]) ID Date Data Source [id number] 04/29/2020 03:56:00 PM EDT [facility] ([facility]) Name Value Range Interpretation Code Description Data Ellie rce(s) Supporting Document(s) glucose, fasting 97 mg/dL 70-100 Glucose, Fasting AT [facility]) blood urea nitrogen 19 mg/dL 7-18 Above high normal Blood Ure a Nitrogen [facility] ([facility]) glomerular filtration rate > 60.0 >60 Glomerula r Filtration Rate SAYNER ([facility]) creatinine for GFR 1.12 mg/dL 0.70-1.30 Creatinine for GF R HILDA ([facility]) sodium level 137 mEq/L 136-145 Sodium Level HILDA ([facility]) chloride level 103 mEq/L 98-107 Chloride Level HILDA ([facility]) potassium serum 4.1 mEq/L 3.5-5.1 Potassium Serum ATHE NA ([facility]) anion gap 3 mEq/L 8-16 Below low normal Anion Gap SAYNER ( [facility]) calcium level 9.3 mg/dL 8.5-10.1 Calcium Level SAYNER ( [facility]) carbon dioxide level 31 mEq/L 21-32 Carbon Dioxide Level SAYNER ([facility]) ID Date Data Source [id number] 04/29/2020 03:56:00 PM EDT HILDA ([facility]) Name Value Range Interpretation Code Description Data Ellie rce(s) Supporting Document(s) AST/SGOT 13 U/L 7-37 AST/SGOT HILDA ([facility]) ALT/SGPT 25 U/L 12-78 ALT/SGPT HILDA ([facility]) alkaline phosphatase 76 U/L 45-117 Alkaline Phosph atase HILDA ([facility]) bilirubin,total 0.5 mg/dL 0.2-1.0 Bilirubin,total ATHE ([facility]) bilirubin,direct 0.2 mg/dL 0.0-0.2 Bilirubin,direct AT [facility] ([facility]) albumin 4.0 gm/dL 3.2-5.2 Albumin HILDA ([facility]) total protein 7.0 gm/dL 6.4-8.2 Total Protein SAYNER ( [facility]) albumin/globulin ratio Albumin/globu wu Ratio SAYNER ([facility]) ID Date Data Source [id number] 03/23/2020 12:00:00 AM EST [facility] Name Value Range Interpretation Code Description Data Ellie rce(s) Supporting Document(s) SARS-CoV2 Rapid Antigen Negative [facility] This lab was ordered by [facility] and reported by [facility]. ID Date Data Source [id number] 01/09/2020 03:51:00 PM EST SAYNER ([facility]) Name Value Range Interpretation Code Description Data Ellie rce(s) Supporting Document(s) C reactive protein quantitativ < 0.30 0.00-0.30 C Reactive Protein Quantitativ SAYNER ([facility]) ID Date Data Source [id number] 01/09/2020 03:51:00 PM EST HILDA ([facility]) Name Value Range Interpretation Code Description Data Ellie rce(s) Supporting Document(s) cholesterol level 278 mg/dL <200 Above high normal Cholesterol Level HILDA ([facility]) triglycerides level 314 mg/dL <150 Above high normal Triglycer ides Level HILDA ([facility]) cholesterol risk ratio <5 Above high normal Choles terol Risk Ratio HILDA ([facility]) non-HDL-C 240 mg/dL Non-hdl-c HILDA ([facility]) Cholesterol in LDL [Mass/volume] in Serum or Plasma 177 mg/dL <100 Above high normal LDL Cholesterol HILDA ([facility]) HDL cholesterol 38 mg/dL >40 Below low normal HDL Cholestero l HILDA ([facility]) ID Date Data Source [id number] 01/09/2020 03:51:00 PM EST HILDA ([facility]) Name Value Range Interpretation Code Description Data Ellie rce(s) Supporting Document(s) C reactive protein quantitativ < 0.30 0.00-0.30 C Reactive Protein Quantitativ HILDA ([facility]) ID Date Data Source [id number] 01/09/2020 03:51:00 PM EST HILDA ([facility]) Name Value Range Interpretation Code Description Data Ellie rce(s) Supporting Document(s) cholesterol level 278 mg/dL <200 Above high normal Cholesterol Level HILDA ([facility]) triglycerides level 314 mg/dL <150 Above high normal Triglycer ides Level HILDA ([facility]) non-HDL-C 240 mg/dL Non-hdl-c HILDA ([facility]) cholesterol risk ratio <5 Above high normal Choles terol Risk Ratio HILDA ([facility]) HDL cholesterol 38 mg/dL >40 Below low normal HDL Cholestero l HILDA ([facility]) Cholesterol in LDL [Mass/volume] in Serum or Plasma 177 mg/dL <100 Above high normal LDL Cholesterol HILDA ([facility]) ID Date Data Source [id number] 01/09/2020 03:51:00 PM EST HILDA ([facility]) Name Value Range Interpretation Code Description Data Ellie rce(s) Supporting Document(s) C reactive protein quantitativ < 0.30 0.00-0.30 C Reactive Protein Quantitativ HILDA ([facility]) ID Date Data Source [id number] 01/09/2020 03:51:00 PM EST HILDA ([facility]) Name Value Range Interpretation Code Description Data Ellie rce(s) Supporting Document(s) cholesterol level 278 mg/dL <200 Above high normal Cholesterol Level HILDA ([facility]) triglycerides level 314 mg/dL <150 Above high normal Triglycer ides Level HILDA ([facility]) HDL cholesterol 38 mg/dL >40 Below low normal HDL Cholestero l HILDA ([facility]) Cholesterol in LDL [Mass/volume] in Serum or Plasma 177 mg/dL <100 Above high normal LDL Cholesterol HILDA ([facility]) cholesterol risk ratio <5 Above high normal Choles terol Risk Ratio HILDA ([facility]) non-HDL-C 240 mg/dL Non-hdl-c HILDA ([facility]) ID Date Data Source [id number] 01/09/2020 03:51:00 PM EST HILDA ([facility]) Name Value Range Interpretation Code Description Data Ellie rce(s) Supporting Document(s) C reactive protein quantitativ < 0.30 0.00-0.30 C Reactive Protein Quantitativ HILDA ([facility]) ID Date Data Source [id number] 01/09/2020 03:51:00 PM EST HILDA ([facility]) Name Value Range Interpretation Code Description Data Ellie rce(s) Supporting Document(s) HDL cholesterol 38 mg/dL >40 Below low normal HDL Cholestero l HILDA ([facility]) triglycerides level 314 mg/dL <150 Above high normal Triglycer ides Level HILDA ([facility]) cholesterol level 278 mg/dL <200 Above high normal Cholesterol Level HILDA ([facility]) non-HDL-C 240 mg/dL Non-hdl-c HILDA ([facility]) cholesterol risk ratio <5 Above high normal Choles terol Risk Ratio HILDA ([facility]) Cholesterol in LDL [Mass/volume] in Serum or Plasma 177 mg/dL <100 Above high normal LDL Cholesterol HILDA ([facility]) ID Date Data Source [id number] 01/09/2020 03:51:00 PM EST HILDA ([facility]) Name Value Range Interpretation Code Description Data Ellie rce(s) Supporting Document(s) C reactive protein quantitativ < 0.30 0.00-0.30 C Reactive Protein Quantitativ HILDA ([facility]) ID Date Data Source [id number] 01/09/2020 03:51:00 PM EST HILDA ([facility]) Name Value Range Interpretation Code Description Data Ellie rce(s) Supporting Document(s) triglycerides level 314 mg/dL <150 Above high normal Triglycer ides Level HILDA ([facility]) cholesterol level 278 mg/dL <200 Above high normal Cholesterol Level HILDA ([facility]) HDL cholesterol 38 mg/dL >40 Below low normal HDL Cholestero l HILDA ([facility]) non-HDL-C 240 mg/dL Non-hdl-c HILDA ([facility]) Cholesterol in LDL [Mass/volume] in Serum or Plasma 177 mg/dL <100 Above high normal LDL Cholesterol HILDA ([facility]) cholesterol risk ratio <5 Above high normal Choles terol Risk Ratio HILDA ([facility]) ID Date Data Source [id number] 01/09/2020 03:51:00 PM EST HILDA ([facility]) Name Value Range Interpretation Code Description Data Ellie rce(s) Supporting Document(s) C reactive protein quantitativ < 0.30 0.00-0.30 C Reactive Protein Quantitativ HILDA ([facility]) ID Date Data Source [id number] 01/09/2020 03:51:00 PM EST HILDA ([facility]) Name Value Range Interpretation Code Description Data Ellie rce(s) Supporting Document(s) triglycerides level 314 mg/dL <150 Above high normal Triglycer ides Level HILDA ([facility]) cholesterol level 278 mg/dL <200 Above high normal Cholesterol Level HILDA ([facility]) HDL cholesterol 38 mg/dL >40 Below low normal HDL Cholestero l HILDA ([facility]) non-HDL-C 240 mg/dL Non-hdl-c HILDA ([facility]) Cholesterol in LDL [Mass/volume] in Serum or Plasma 177 mg/dL <100 Above high normal LDL Cholesterol HILDA ([facility]) cholesterol risk ratio <5 Above high normal Choles terol Risk Ratio HILDA ([facility]) ID Date Data Source [id number] 01/09/2020 03:51:00 PM EST HILDA ([facility]) Name Value Range Interpretation Code Description Data Ellie rce(s) Supporting Document(s) C reactive protein quantitativ < 0.30 0.00-0.30 C Reactive Protein Quantitativ HILDA ([facility]) ID Date Data Source [id number] 01/09/2020 03:51:00 PM EST HILDA ([facility]) Name Value Range Interpretation Code Description Data Ellie rce(s) Supporting Document(s) cholesterol level 278 mg/dL <200 Above high normal Cholesterol Level HILDA ([facility]) triglycerides level 314 mg/dL <150 Above high normal Triglycer ides Level HILDA ([facility]) HDL cholesterol 38 mg/dL >40 Below low normal HDL Cholestero l HILDA ([facility]) Cholesterol in LDL [Mass/volume] in Serum or Plasma 177 mg/dL <100 Above high normal LDL Cholesterol HILDA ([facility]) non-HDL-C 240 mg/dL Non-hdl-c HILDA ([facility]) cholesterol risk ratio <5 Above high normal Choles terol Risk Ratio HILDA ([facility]) ID Date Data Source [id number] 01/09/2020 03:51:00 PM EST HILDA ([facility]) Name Value Range Interpretation Code Description Data Ellie rce(s) Supporting Document(s) C reactive protein quantitativ < 0.30 0.00-0.30 C Reactive Protein Quantitativ HILDA ([facility]) ID Date Data Source [id number] 01/09/2020 03:51:00 PM EST HILDA ([facility]) Name Value Range Interpretation Code Description Data Ellie rce(s) Supporting Document(s) triglycerides level 314 mg/dL <150 Above high normal Triglycer ides Level HILDA ([facility]) cholesterol level 278 mg/dL <200 Above high normal Cholesterol Level HILDA ([facility]) HDL cholesterol 38 mg/dL >40 Below low normal HDL Cholestero l HILDA ([facility]) Cholesterol in LDL [Mass/volume] in Serum or Plasma 177 mg/dL <100 Above high normal LDL Cholesterol HILDA ([facility]) cholesterol risk ratio <5 Above high normal Choles terol Risk Ratio HILDA ([facility]) non-HDL-C 240 mg/dL Non-hdl-c HILDA ([facility]) ID Date Data Source [id number] 01/09/2020 03:51:00 PM EST HILDA ([facility]) Name Value Range Interpretation Code Description Data Ellie rce(s) Supporting Document(s) C reactive protein quantitativ < 0.30 0.00-0.30 C Reactive Protein Quantitativ HILDA ([facility]) ID Date Data Source [id number] 01/09/2020 03:51:00 PM EST HILDA ([facility]) Name Value Range Interpretation Code Description Data Ellie rce(s) Supporting Document(s) cholesterol level 278 mg/dL <200 Above high normal Cholesterol Level HILDA ([facility]) triglycerides level 314 mg/dL <150 Above high normal Triglycer ides Level HILDA ([facility]) HDL cholesterol 38 mg/dL >40 Below low normal HDL Cholestero l HILDA ([facility]) Cholesterol in LDL [Mass/volume] in Serum or Plasma 177 mg/dL <100 Above high normal LDL Cholesterol HILDA ([facility]) cholesterol risk ratio <5 Above high normal Choles terol Risk Ratio HILDA ([facility]) non-HDL-C 240 mg/dL Non-hdl-c HILDA ([facility]) ID Date Data Source [id number] 01/09/2020 03:51:00 PM EST HILDA ([facility]) Name Value Range Interpretation Code Description Data Ellie rce(s) Supporting Document(s) C reactive protein quantitativ < 0.30 0.00-0.30 C Reactive Protein Quantitativ HILDA ([facility]) ID Date Data Source [id number] 01/09/2020 03:51:00 PM EST HILDA ([facility]) Name Value Range Interpretation Code Description Data Ellie rce(s) Supporting Document(s) cholesterol level 278 mg/dL <200 Above high normal Cholesterol Level HILDA ([facility]) Cholesterol in LDL [Mass/volume] in Serum or Plasma 177 mg/dL <100 Above high normal LDL Cholesterol HILDA ([facility]) HDL cholesterol 38 mg/dL >40 Below low normal HDL Cholestero l HILDA ([facility]) triglycerides level 314 mg/dL <150 Above high normal Triglycer ides Level HILDA ([facility]) non-HDL-C 240 mg/dL Non-hdl-c HILDA ([facility]) cholesterol risk ratio <5 Above high normal Choles terol Risk Ratio HILDA ([facility]) ID Date Data Source [id number] 01/09/2020 03:51:00 PM EST HILDA ([facility]) Name Value Range Interpretation Code Description Data Ellie rce(s) Supporting Document(s) C reactive protein quantitativ < 0.30 0.00-0.30 C Reactive Protein Quantitativ HILDA ([facility]) ID Date Data Source [id number] 01/09/2020 03:51:00 PM EST HILDA ([facility]) Name Value Range Interpretation Code Description Data Ellie rce(s) Supporting Document(s) HDL cholesterol 38 mg/dL >40 Below low normal HDL Cholestero l HILDA ([facility]) triglycerides level 314 mg/dL <150 Above high normal Triglycer ides Level HILDA ([facility]) cholesterol level 278 mg/dL <200 Above high normal Cholesterol Level HILDA ([facility]) Cholesterol in LDL [Mass/volume] in Serum or Plasma 177 mg/dL <100 Above high normal LDL Cholesterol HILDA ([facility]) non-HDL-C 240 mg/dL Non-hdl-c HILDA ([facility]) cholesterol risk ratio <5 Above high normal Choles terol Risk Ratio HILDA ([facility]) ID Date Data Source [id number] 01/09/2020 03:51:00 PM EST HILDA ([facility]) Name Value Range Interpretation Code Description Data Ellie rce(s) Supporting Document(s) C reactive protein quantitativ < 0.30 0.00-0.30 C Reactive Protein Quantitativ HILDA ([facility]) ID Date Data Source [id number] 01/09/2020 03:51:00 PM EST HILDA ([facility]) Name Value Range Interpretation Code Description Data Ellie rce(s) Supporting Document(s) triglycerides level 314 mg/dL <150 Above high normal Triglycer ides Level HILDA ([facility]) HDL cholesterol 38 mg/dL >40 Below low normal HDL Cholestero l HILDA ([facility]) cholesterol level 278 mg/dL <200 Above high normal Cholesterol Level HILDA ([facility]) Cholesterol in LDL [Mass/volume] in Serum or Plasma 177 mg/dL <100 Above high normal LDL Cholesterol HILDA ([facility]) non-HDL-C 240 mg/dL Non-hdl-c HILDA ([facility]) cholesterol risk ratio <5 Above high normal Choles terol Risk Ratio HILDA ([facility]) ID Date Data Source [id number] 01/09/2020 03:51:00 PM EST [facility] ([facility] Name Value Range Interpretation Code Description Data Ellie rce(s) Supporting Document(s) C reactive protein [Mass/volume] in Serum or Plasma by High sensitivity method Laboratory test result 0.00-0.30 [facility] ([facility]) ID Date Data Source [id number] 01/09/2020 03:51:00 PM EST [facility] ([facility] Name Value Range Interpretation Code Description Data Ellie rce(s) Supporting Document(s) Triglycerides Level 314 mg/dL [facility] ([facility]) HDL Cholesterol 38 mg/dL [facility] ([facility]) Cholesterol Level 278 mg/dL [facility] ([facility]) Cholesterol Risk Ratio 7.315 [facility] ([facility]) LDL Cholesterol 177 mg/dL [facility] ([facility]) Non-HDL-C 240 mg/dL [facility] ID Date Data Source [id number] 01/09/2020 03:51:00 PM [facility] Name Value Range Interpretation Code Description Data Ellie rce(s) Supporting Document(s) C reactive protein quantitativ < 0.30 0.00-0.30 C Reactive Protein Quantitativ HILDA ([facility]) ID Date Data Source [id number] 01/09/2020 03:51:00 PM EST HILDA ([facility]) Name Value Range Interpretation Code Description Data Ellie rce(s) Supporting Document(s) triglycerides level 314 mg/dL <150 Above high normal Triglycer ides Level HILDA ([facility]) cholesterol level 278 mg/dL <200 Above high normal Cholesterol Level HILDA ([facility]) HDL cholesterol 38 mg/dL >40 Below low normal HDL Cholestero l HILDA ([facility]) non-HDL-C 240 mg/dL Non-hdl-c HILDA ([facility]) Cholesterol in LDL [Mass/volume] in Serum or Plasma 177 mg/dL <100 Above high normal LDL Cholesterol HILDA ([facility]) cholesterol risk ratio <5 Above high normal Choles terol Risk Ratio HILDA ([facility]) ID Date Data Source [id number] 01/09/2020 03:51:00 PM EST HILDA ([facility]) Name Value Range Interpretation Code Description Data Ellie rce(s) Supporting Document(s) C reactive protein quantitativ < 0.30 0.00-0.30 C Reactive Protein Quantitativ HILDA ([facility]) ID Date Data Source [id number] 01/09/2020 03:51:00 PM EST HILDA ([facility]) Name Value Range Interpretation Code Description Data Ellie rce(s) Supporting Document(s) cholesterol level 278 mg/dL <200 Above high normal Cholesterol Level HILDA ([facility]) triglycerides level 314 mg/dL <150 Above high normal Triglycer ides Level HILDA ([facility]) non-HDL-C 240 mg/dL Non-hdl-c HILDA ([facility]) Cholesterol in LDL [Mass/volume] in Serum or Plasma 177 mg/dL <100 Above high normal LDL Cholesterol HILDA ([facility]) HDL cholesterol 38 mg/dL >40 Below low normal HDL Cholestero l HILDA ([facility]) cholesterol risk ratio <5 Above high normal Choles terol Risk Ratio HILDA ([facility]) ID Date Data Source [id number] 01/09/2020 03:51:00 PM EST HILDA ([facility]) Name Value Range Interpretation Code Description Data Ellie rce(s) Supporting Document(s) C reactive protein quantitativ < 0.30 0.00-0.30 C Reactive Protein Quantitativ HILDA ([facility]) ID Date Data Source [id number] 01/09/2020 03:51:00 PM EST HILDA ([facility]) Name Value Range Interpretation Code Description Data Ellie rce(s) Supporting Document(s) triglycerides level 314 mg/dL <150 Above high normal Triglycer ides Level HILDA ([facility]) cholesterol level 278 mg/dL <200 Above high normal Cholesterol Level HILDA ([facility]) HDL cholesterol 38 mg/dL >40 Below low normal HDL Cholestero l HILDA ([facility]) cholesterol risk ratio <5 Above high normal Choles terol Risk Ratio HILDA ([facility]) Cholesterol in LDL [Mass/volume] in Serum or Plasma 177 mg/dL <100 Above high normal LDL Cholesterol [facility]ILDA ([facility]) non-HDL-C 240 mg/dL Non-hdl-c HILDA ([facility]) ID Date Data Source [id number] 01/09/2020 03:51:00 PM EST HILDA ([facility]) Name Value Range Interpretation Code Description Data Ellie rce(s) Supporting Document(s) C reactive protein quantitativ < 0.30 0.00-0.30 C Reactive Protein Quantitativ HILDA ([facility]) ID Date Data Source [id number] 01/09/2020 03:51:00 PM EST HILDA ([facility]) Name Value Range Interpretation Code Description Data Ellie rce(s) Supporting Document(s) triglycerides level 314 mg/dL <150 Above high normal Triglycer ides Level HILDA ([facility]) cholesterol level 278 mg/dL <200 Above high normal Cholesterol Level HILDA ([facility]) non-HDL-C 240 mg/dL Non-hdl-c HILDA ([facility]) HDL cholesterol 38 mg/dL >40 Below low normal HDL Cholestero l HILDA ([facility]) Cholesterol in LDL [Mass/volume] in Serum or Plasma 177 mg/dL <100 Above high normal LDL Cholesterol [facility]DA ([facility]) cholesterol risk ratio <5 Above high normal Choles terol Risk Ratio HILDA ([facility]) ID Date Data Source [id number] 01/09/2020 03:51:00 PM EST HILDA ([facility]) Name Value Range Interpretation Code Description Data Ellie rce(s) Supporting Document(s) C reactive protein quantitativ < 0.30 0.00-0.30 C Reactive Protein Quantitativ HILDA ([facility]) ID Date Data Source [id number] 01/09/2020 03:51:00 PM EST HILDA ([facility]) Name Value Range Interpretation Code Description Data Ellie rce(s) Supporting Document(s) cholesterol level 278 mg/dL <200 Above high normal Cholesterol Level HILDA ([facility]) triglycerides level 314 mg/dL <150 Above high normal Triglycer ides Level HILDA ([facility]) Cholesterol in LDL [Mass/volume] in Serum or Plasma 177 mg/dL <100 Above high normal LDL Cholesterol [facility]ILDA ([facility]) cholesterol risk ratio <5 Above high normal Choles terol Risk Ratio HILDA ([facility]) HDL cholesterol 38 mg/dL >40 Below low normal HDL Cholestero l HILDA ([facility]) non-HDL-C 240 mg/dL Non-hdl-c [facility]DA ([facility]) ID Date Data Source [id number] 01/09/2020 03:51:00 PM EST HILDA ([facility]) Name Value Range Interpretation Code Description Data Ellie rce(s) Supporting Document(s) C reactive protein quantitativ < 0.30 0.00-0.30 C Reactive Protein Quantitativ HILDA ([facility]) ID Date Data Source [id number] 01/09/2020 03:51:00 PM EST [facility]ILDA ([facility]) Name Value Range Interpretation Code Description Data Ellie rce(s) Supporting Document(s) cholesterol level 278 mg/dL <200 Above high normal Cholesterol Level HILDA ([facility]) HDL cholesterol 38 mg/dL >40 Below low normal HDL Cholestero l HILDA ([facility]) triglycerides level 314 mg/dL <150 Above high normal Triglycer ides Level HILDA ([facility]) non-HDL-C 240 mg/dL Non-hdl-c H[facility]DA ([facility]) cholesterol risk ratio <5 Above high normal Choles terol Risk Ratio HILDA ([facility]) Cholesterol in LDL [Mass/volume] in Serum or Plasma 177 mg/dL <100 Above high normal LDL Cholesterol [facility] ([facility]) ID Date Data Source [id number] 01/09/2020 03:51:00 PM EST [facility]ILDA ([facility]) Name Value Range Interpretation Code Description Data Ellie rce(s) Supporting Document(s) C reactive protein quantitativ < 0.30 0.00-0.30 C Reactive Protein Quantitativ HILDA ([facility]) ID Date Data Source [id number] 01/09/2020 03:51:00 PM EST HILDA ([facility]) Name Value Range Interpretation Code Description Data Ellie rce(s) Supporting Document(s) triglycerides level 314 mg/dL <150 Above high normal Triglycer ides Level HILDA ([facility]) cholesterol level 278 mg/dL <200 Above high normal Cholesterol Level HLIDA ([facility]) Cholesterol in LDL [Mass/volume] in Serum or Plasma 177 mg/dL <100 Above high normal LDL Cholesterol HILDA ([facility]) non-HDL-C 240 mg/dL Non-hdl-c HILDA ([facility]) HDL cholesterol 38 mg/dL >40 Below low normal HDL Cholestero l HILDA ([facility]) cholesterol risk ratio <5 Above high normal Choles terol Risk Ratio HILDA ([facility]) ID Date Data Source [id number] 01/09/2020 03:51:00 PM EST HILDA ([facility]) Name Value Range Interpretation Code Description Data Ellie rce(s) Supporting Document(s) C reactive protein quantitativ < 0.30 0.00-0.30 C Reactive Protein Quantitativ HILDA ([facility]) ID Date Data Source [id number] 01/09/2020 03:51:00 PM EST HILDA ([facility]) Name Value Range Interpretation Code Description Data Ellie rce(s) Supporting Document(s) triglycerides level 314 mg/dL <150 Above high normal Triglycer ides Level HILDA ([facility]) HDL cholesterol 38 mg/dL >40 Below low normal HDL Cholestero l HILDA ([facility]) non-HDL-C 240 mg/dL Non-hdl-c H[facility]DA ([facility]) Cholesterol in LDL [Mass/volume] in Serum or Plasma 177 mg/dL <100 Above high normal LDL Cholesterol [facility] ([facility]) cholesterol level 278 mg/dL <200 Above high normal Cholesterol Level HILDA ([facility]) cholesterol risk ratio <5 Above high normal Choles terol Risk Ratio HILDA ([facility]) ID Date Data Source [id number] 01/09/2020 03:51:00 PM EST HILDA ([facility]) Name Value Range Interpretation Code Description Data Ellie rce(s) Supporting Document(s) C reactive protein quantitativ < 0.30 0.00-0.30 C Reactive Protein Quantitativ HILDA ([facility]) ID Date Data Source [id number] 01/09/2020 03:51:00 PM EST HILDA ([facility]) Name Value Range Interpretation Code Description Data Ellie rce(s) Supporting Document(s) triglycerides level 314 mg/dL <150 Above high normal Triglycer ides Level HILDA ([facility]) HDL cholesterol 38 mg/dL >40 Below low normal HDL Cholestero l HILDA ([facility]) Cholesterol in LDL [Mass/volume] in Serum or Plasma 177 mg/dL <100 Above high normal LDL Cholesterol HILDA ([facility]) cholesterol level 278 mg/dL <200 Above high normal Cholesterol Level HILDA ([facility]) non-HDL-C 240 mg/dL Non-hdl-c HILDA ([facility]) cholesterol risk ratio <5 Above high normal Choles terol Risk Ratio HILDA ([facility]) ID Date Data Source [id number] 01/09/2020 03:51:00 PM EST HILDA ([facility]) Name Value Range Interpretation Code Description Data Ellie rce(s) Supporting Document(s) C reactive protein quantitativ < 0.30 0.00-0.30 C Reactive Protein Quantitativ HILDA ([facility]) ID Date Data Source [id number] 01/09/2020 03:51:00 PM EST HILDA ([facility]) Name Value Range Interpretation Code Description Data Ellie rce(s) Supporting Document(s) cholesterol level 278 mg/dL <200 Above high normal Cholesterol Level HILDA ([facility]) triglycerides level 314 mg/dL <150 Above high normal Triglycer ides Level HILDA ([facility]) Cholesterol in LDL [Mass/volume] in Serum or Plasma 177 mg/dL <100 Above high normal LDL Cholesterol H[facility]DA ([facility]) non-HDL-C 240 mg/dL Non-hdl-c HILDA ([facility]) cholesterol risk ratio <5 Above high normal Choles terol Risk Ratio HILDA ([facility]) HDL cholesterol 38 mg/dL >40 Below low normal HDL Cholestero l HILDA ([facility]) ID Date Data Source [id number] 01/09/2020 03:51:00 PM EST HILDA ([facility]) Name Value Range Interpretation Code Description Data Ellie rce(s) Supporting Document(s) C reactive protein quantitativ < 0.30 0.00-0.30 C Reactive Protein Quantitativ HILDA ([facility]) ID Date Data Source [id number] 01/09/2020 03:51:00 PM EST HILDA ([facility]) Name Value Range Interpretation Code Description Data Ellie rce(s) Supporting Document(s) triglycerides level 314 mg/dL <150 Above high normal Triglycer ides Level HILDA ([facility]) Cholesterol in LDL [Mass/volume] in Serum or Plasma 177 mg/dL <100 Above high normal LDL Cholesterol [facility] ([facility]) HDL cholesterol 38 mg/dL >40 Below low normal HDL Cholestero l HILDA ([facility]) non-HDL-C 240 mg/dL Non-hdl-c HILDA ([facility]) cholesterol level 278 mg/dL <200 Above high normal Cholesterol Level HILDA ([facility]) cholesterol risk ratio <5 Above high normal Choles terol Risk Ratio HILDA ([facility]) ID Date Data Source [id number] 01/09/2020 03:51:00 PM EST HILDA ([facility]) Name Value Range Interpretation Code Description Data Ellie rce(s) Supporting Document(s) C reactive protein quantitativ < 0.30 0.00-0.30 C Reactive Protein Quantitativ HILDA ([facility]) ID Date Data Source [id number] 01/09/2020 03:51:00 PM EST HILDA ([facility]) Name Value Range Interpretation Code Description Data Ellie rce(s) Supporting Document(s) HDL cholesterol 38 mg/dL >40 Below low normal HDL Cholestero l HILDA ([facility]) cholesterol level 278 mg/dL <200 Above high normal Cholesterol Level HILDA ([facility]) triglycerides level 314 mg/dL <150 Above high normal Triglycer ides Level HILDA ([facility]) cholesterol risk ratio <5 Above high normal Choles terol Risk Ratio HILDA ([facility]) Cholesterol in LDL [Mass/volume] in Serum or Plasma 177 mg/dL <100 Above high normal LDL Cholesterol [facility] ([facility]) non-HDL-C 240 mg/dL Non-hdl-c HILDA ([facility]) ID Date Data Source [id number] 01/09/2020 03:51:00 PM EST HILDA ([facility]) Name Value Range Interpretation Code Description Data Ellie rce(s) Supporting Document(s) C reactive protein quantitativ < 0.30 0.00-0.30 C Reactive Protein Quantitativ HILDA ([facility]) ID Date Data Source [id number] 01/09/2020 03:51:00 PM EST HILDA ([facility]) Name Value Range Interpretation Code Description Data Ellie rce(s) Supporting Document(s) cholesterol level 278 mg/dL <200 Above high normal Cholesterol Level HILDA ([facility]) triglycerides level 314 mg/dL <150 Above high normal Triglycer ides Level HILDA ([facility]) Cholesterol in LDL [Mass/volume] in Serum or Plasma 177 mg/dL <100 Above high normal LDL Cholesterol [facility] ([facility]) non-HDL-C 240 mg/dL Non-hdl-c HILDA ([facility]) cholesterol risk ratio <5 Above high normal Choles terol Risk Ratio HILDA ([facility]) HDL cholesterol 38 mg/dL >40 Below low normal HDL Cholestero l HILDA ([facility]) ID Date Data Source [id number] 01/09/2020 03:51:00 PM EST HILDA ([facility]) Name Value Range Interpretation Code Description Data Ellie rce(s) Supporting Document(s) C reactive protein quantitativ < 0.30 0.00-0.30 C Reactive Protein Quantitativ HILDA ([facility]) ID Date Data Source [id number] 01/09/2020 03:51:00 PM EST HILDA ([facility]) Name Value Range Interpretation Code Description Data Ellie rce(s) Supporting Document(s) triglycerides level 314 mg/dL <150 Above high normal Triglycer ides Level HILDA ([facility]) cholesterol level 278 mg/dL <200 Above high normal Cholesterol Level HILDA ([facility]) HDL cholesterol 38 mg/dL >40 Below low normal HDL Cholestero l HILDA ([facility]) non-HDL-C 240 mg/dL Non-hdl-c HILDA ([facility]) Cholesterol in LDL [Mass/volume] in Serum or Plasma 177 mg/dL <100 Above high normal LDL Cholesterol HILDA ([facility]) cholesterol risk ratio <5 Above high normal Choles terol Risk Ratio HILDA ([facility]) ID Date Data Source [id number] 01/09/2020 03:51:00 PM EST HILDA ([facility]) Name Value Range Interpretation Code Description Data Ellie rce(s) Supporting Document(s) C reactive protein quantitativ < 0.30 0.00-0.30 C Reactive Protein Quantitativ HILDA ([facility]) ID Date Data Source [id number] 01/09/2020 03:51:00 PM EST HILDA ([facility]) Name Value Range Interpretation Code Description Data Ellie rce(s) Supporting Document(s) triglycerides level 314 mg/dL <150 Above high normal Triglycer ides Level HILDA ([facility]) HDL cholesterol 38 mg/dL >40 Below low normal HDL Cholestero l HILDA ([facility]) cholesterol level 278 mg/dL <200 Above high normal Cholesterol Level HILDA ([facility]) cholesterol risk ratio <5 Above high normal Choles terol Risk Ratio HILDA ([facility]) non-HDL-C 240 mg/dL Non-hdl-c HILDA ([facility]) Cholesterol in LDL [Mass/volume] in Serum or Plasma 177 mg/dL <100 Above high normal LDL Cholesterol HILDA ([facility]) ID Date Data Source [id number] 01/09/2020 03:51:00 PM EST HILDA ([facility]) Name Value Range Interpretation Code Description Data Ellie rce(s) Supporting Document(s) C reactive protein quantitativ < 0.30 0.00-0.30 C Reactive Protein Quantitativ HILDA ([facility]) ID Date Data Source [id number] 01/09/2020 03:51:00 PM EST HILDA ([facility]) Name Value Range Interpretation Code Description Data Ellie rce(s) Supporting Document(s) cholesterol level 278 mg/dL <200 Above high normal Cholesterol Level HILDA ([facility]) triglycerides level 314 mg/dL <150 Above high normal Triglycer ides Level HILDA ([facility]) cholesterol risk ratio <5 Above high normal Choles terol Risk Ratio HILDA ([facility]) non-HDL-C 240 mg/dL Non-hdl-c HILDA ([facility]) HDL cholesterol 38 mg/dL >40 Below low normal HDL Cholestero l HILDA ([facility]) Cholesterol in LDL [Mass/volume] in Serum or Plasma 177 mg/dL <100 Above high normal LDL Cholesterol [facility]ILDA ([facility]) ID Date Data Source [id number] 01/09/2020 03:51:00 PM EST HILDA ([facility]) Name Value Range Interpretation Code Description Data Ellie rce(s) Supporting Document(s) C reactive protein quantitativ < 0.30 0.00-0.30 C Reactive Protein Quantitativ HILDA ([facility]) ID Date Data Source [id number] 01/09/2020 03:51:00 PM EST HILDA ([facility]) Name Value Range Interpretation Code Description Data Ellie rce(s) Supporting Document(s) HDL cholesterol 38 mg/dL >40 Below low normal HDL Cholestero l HILDA ([facility]) triglycerides level 314 mg/dL <150 Above high normal Triglycer ides Level HILDA ([facility]) cholesterol level 278 mg/dL <200 Above high normal Cholesterol Level HILDA ([facility]) non-HDL-C 240 mg/dL Non-hdl-c HILDA ([facility]) cholesterol risk ratio <5 Above high normal Choles terol Risk Ratio HILDA ([facility]) Cholesterol in LDL [Mass/volume] in Serum or Plasma 177 mg/dL <100 Above high normal LDL Cholesterol HILDA ([facility]) ID Date Data Source [id number] 01/09/2020 03:51:00 PM EST HILDA ([facility]) Name Value Range Interpretation Code Description Data Ellie rce(s) Supporting Document(s) C reactive protein quantitativ < 0.30 0.00-0.30 C Reactive Protein Quantitativ HILDA ([facility]) ID Date Data Source [id number] 01/09/2020 03:51:00 PM EST HILDA ([facility]) Name Value Range Interpretation Code Description Data Ellie rce(s) Supporting Document(s) triglycerides level 314 mg/dL <150 Above high normal Triglycer ides Level HILDA ([facility]) cholesterol risk ratio <5 Above high normal Choles terol Risk Ratio HILDA ([facility]) Cholesterol in LDL [Mass/volume] in Serum or Plasma 177 mg/dL <100 Above high normal LDL Cholesterol HILDA ([facility]) HDL cholesterol 38 mg/dL >40 Below low normal HDL Cholestero l HILDA ([facility]) cholesterol level 278 mg/dL <200 Above high normal Cholesterol Level HILDA ([facility]) non-HDL-C 240 mg/dL Non-hdl-c HILDA ([facility]) ID Date Data Source [id number] 01/09/2020 03:51:00 PM EST HILDA ([facility]) Name Value Range Interpretation Code Description Data Ellie rce(s) Supporting Document(s) C reactive protein quantitativ < 0.30 0.00-0.30 C Reactive Protein Quantitativ HILDA ([facility]) ID Date Data Source [id number] 01/09/2020 03:51:00 PM EST HILDA ([facility]) Name Value Range Interpretation Code Description Data Ellie rce(s) Supporting Document(s) cholesterol level 278 mg/dL <200 Above high normal Cholesterol Level HILDA ([facility]) triglycerides level 314 mg/dL <150 Above high normal Triglycer ides Level HILDA ([facility]) non-HDL-C 240 mg/dL Non-hdl-c HILDA ([facility]) Cholesterol in LDL [Mass/volume] in Serum or Plasma 177 mg/dL <100 Above high normal LDL Cholesterol HILDA ([facility]) cholesterol risk ratio <5 Above high normal Choles terol Risk Ratio HILDA ([facility]) HDL cholesterol 38 mg/dL >40 Below low normal HDL Cholestero l HILDA ([facility]) ID Date Data Source [id number] 01/09/2020 03:51:00 PM EST HILDA ([facility]) Name Value Range Interpretation Code Description Data Ellie rce(s) Supporting Document(s) C reactive protein quantitativ < 0.30 0.00-0.30 C Reactive Protein Quantitativ HILDA ([facility]) ID Date Data Source [id number] 01/09/2020 03:51:00 PM EST HILDA ([facility]) Name Value Range Interpretation Code Description Data Ellie rce(s) Supporting Document(s) cholesterol level 278 mg/dL <200 Above high normal Cholesterol Level HILDA ([facility]) HDL cholesterol 38 mg/dL >40 Below low normal HDL Cholestero l HILDA ([facility]) triglycerides level 314 mg/dL <150 Above high normal Triglycer ides Level HILDA ([facility]) Cholesterol in LDL [Mass/volume] in Serum or Plasma 177 mg/dL <100 Above high normal LDL Cholesterol HILDA ([facility]) cholesterol risk ratio <5 Above high normal Choles terol Risk Ratio HILDA ([facility]) non-HDL-C 240 mg/dL Non-hdl-c HILDA ([facility]) ID Date Data Source [id number] 01/09/2020 03:51:00 PM EST HILDA ([facility]) Name Value Range Interpretation Code Description Data Ellie rce(s) Supporting Document(s) C reactive protein quantitativ < 0.30 0.00-0.30 C Reactive Protein Quantitativ HILDA ([facility]) ID Date Data Source [id number] 01/09/2020 03:51:00 PM EST HILDA ([facility]) Name Value Range Interpretation Code Description Data Ellie rce(s) Supporting Document(s) triglycerides level 314 mg/dL <150 Above high normal Triglycer ides Level HILDA ([facility]) Cholesterol in LDL [Mass/volume] in Serum or Plasma 177 mg/dL <100 Above high normal LDL Cholesterol HILDA ([facility]) cholesterol level 278 mg/dL <200 Above high normal Cholesterol Level HILDA ([facility]) HDL cholesterol 38 mg/dL >40 Below low normal HDL Cholestero l HILDA ([facility]) non-HDL-C 240 mg/dL Non-hdl-c HILDA ([facility]) cholesterol risk ratio <5 Above high normal Choles terol Risk Ratio HILDA ([facility]) ID Date Data Source [id number] 12/17/2019 04:48:00 PM EST MEDENT ([facility]) Name Value Range Interpretation Code Description Data Ellie rce(s) Supporting Document(s) White Blood Count 8.2 4.0-10.0 MED[facility] ([facility]) Red Blood Count 5.36 4.00-5.40 [facility] ([facility]) Hemoglobin 14.5 [facility] ([facility]) Platelets 248 172-450 [facility] Hematocrit 45.1 [facility] ([facility]) ID Date Data Source [id number] 12/17/2019 04:48:00 PM EST MEDENT ([facility]) Name Value Range Interpretation Code Description Data Ellie rce(s) Supporting Document(s) Magnesium Level 2.0 1.8-2.4 [facility] ([facility]) Thyroid Stimulating Hormone 1.360 ME DENT ([facility]) Free T4 0.73 [facility] ([facility] ID Date Data Source [id number] 12/17/2019 04:48:00 PM EST MEDENT ([facility]) Name Value Range Interpretation Code Description Data Ellie rce(s) Supporting Document(s) Alanine aminotransferase [Enzymatic activity/volume] in Serum or Pl asma 39 MEDENT ([facility]) Albumin [Mass/volume] in Serum or Plasma 3.7 [facility] ([facility]) Calcium [Mass/volume] in Serum or Plasma 8.9 [facility] ([facility]) Carbon dioxide, total [Moles/volume] in Serum or Plasma 30 [facility] ([facility]) Chloride [Moles/volume] in Serum or Plasma 105 [facility] ([facility]) Alkaline phosphatase [Enzymatic activity/volume] in Serum or Plasma 8 0 [facility] ([facility]) Protein [Mass/volume] in Serum or Plasma 7.1 [facility] ([facility]) Potassium [Moles/volume] in Serum or Plasma 4.0 [facility] ([facility]) Sodium 142 [facility] Urea nitrogen [Mass/volume] in Serum or Plasma 20 [facility] ([facility]) Glucose 83 70-100 [facility] ([facility] Aspartate aminotransferase [Enzymatic activity/volume] in Serum or Plasma 24 [facility] ([facility]) Creatinine For GFR 1.16 [facility] ([facility]) ID Date Data Source [id number] 12/16/2019 02:05:00 PM EST HILDA ([facility]) Name Value Range Interpretation Code Description Data Ellie rce(s) Supporting Document(s) ID Date Data Source [id number] 12/16/2019 02:05:00 PM EST HILDA ([facility]) Name Value Range Interpretation Code Description Data Ellie rce(s) Supporting Document(s) ID Date Data Source [id number] 12/16/2019 02:05:00 PM EST HILDA ([facility]) Name Value Range Interpretation Code Description Data Ellie rce(s) Supporting Document(s) ID Date Data Source [id number] 12/16/2019 02:05:00 PM EST HILDA ([facility]) Name Value Range Interpretation Code Description Data Ellie rce(s) Supporting Document(s) ID Date Data Source [id number] 12/16/2019 02:05:00 PM EST HILDA ([facility]) Name Value Range Interpretation Code Description Data Ellie rce(s) Supporting Document(s) ID Date Data Source [id number] 12/16/2019 02:05:00 PM EST HILDA ([facility]) Name Value Range Interpretation Code Description Data Ellie rce(s) Supporting Document(s) ID Date Data Source [id number] 12/16/2019 02:05:00 PM EST HILDA ([facility]) Name Value Range Interpretation Code Description Data Ellie rce(s) Supporting Document(s) ID Date Data Source [id number] 12/16/2019 02:05:00 PM EST HILDA ([facility]) Name Value Range Interpretation Code Description Data Ellie rce(s) Supporting Document(s) ID Date Data Source [id number] 12/16/2019 02:05:00 PM EST HILDA [facility]) Name Value Range Interpretation Code Description Data Ellie rce(s) Supporting Document(s) ID Date Data Source [id number] 12/16/2019 02:05:00 PM EST HILDA ([facility]) Name Value Range Interpretation Code Description Data Ellie rce(s) Supporting Document(s) ID Date Data Source [id number] 12/16/2019 02:05:00 PM EST HILDA ([facility]) Name Value Range Interpretation Code Description Data Ellie rce(s) Supporting Document(s) ID Date Data Source [id number] 12/16/2019 02:05:00 PM EST HILDA ([facility]) Name Value Range Interpretation Code Description Data Ellie rce(s) Supporting Document(s) ID Date Data Source [id number] 12/16/2019 02:05:00 PM EST HILDA ([facility]) Name Value Range Interpretation Code Description Data Ellie rce(s) Supporting Document(s) ID Date Data Source [id number] 12/16/2019 02:05:00 PM EST HILDA ([facility]) Name Value Range Interpretation Code Description Data Ellie rce(s) Supporting Document(s) ID Date Data Source [id number] 12/16/2019 02:05:00 PM EST HILDA ([facility]) Name Value Range Interpretation Code Description Data Ellie rce(s) Supporting Document(s) ID Date Data Source [id number] 12/16/2019 02:05:00 PM EST HILDA ([facility]) Name Value Range Interpretation Code Description Data Ellie rce(s) Supporting Document(s) ID Date Data Source [id number] 12/16/2019 02:05:00 PM EST HILDA ([facility]) Name Value Range Interpretation Code Description Data Ellie rce(s) Supporting Document(s) ID Date Data Source [id number] 12/16/2019 02:05:00 PM EST HILDA ([facility]) Name Value Range Interpretation Code Description Data Ellie rce(s) Supporting Document(s) ID Date Data Source [id number] 12/16/2019 02:05:00 PM EST HILDA ([facility]) Name Value Range Interpretation Code Description Data Ellie rce(s) Supporting Document(s) ID Date Data Source [id number] 12/16/2019 02:05:00 PM EST HILDA ([facility]) Name Value Range Interpretation Code Description Data Ellie rce(s) Supporting Document(s) ID Date Data Source [id number] 12/16/2019 02:05:00 PM EST HILDA ([facility]) Name Value Range Interpretation Code Description Data Ellie rce(s) Supporting Document(s) ID Date Data Source [id number] 12/16/2019 02:05:00 PM EST [facility]ILDA ([facility]) Name Value Range Interpretation Code Description Data Ellie rce(s) Supporting Document(s) ID Date Data Source [id number] 12/16/2019 02:05:00 PM EST [facility]ILDA ([facility]) Name Value Range Interpretation Code Description Data Ellie rce(s) Supporting Document(s) ID Date Data Source [id number] 12/16/2019 02:05:00 PM EST HILDA ([facility]) Name Value Range Interpretation Code Description Data Ellie rce(s) Supporting Document(s) ID Date Data Source [id number] 12/16/2019 02:05:00 PM EST HILDA ([facility]) Name Value Range Interpretation Code Description Data Ellie rce(s) Supporting Document(s) ID Date Data Source [id number] 12/16/2019 02:05:00 PM EST HLIDA ([facility]) Name Value Range Interpretation Code Description Data Ellie rce(s) Supporting Document(s) ID Date Data Source [id number] 12/16/2019 02:05:00 PM EST HILDA ([facility]) Name Value Range Interpretation Code Description Data Ellie rce(s) Supporting Document(s) ID Date Data Source [id number] 12/16/2019 02:05:00 PM EST [facility]ILDA ([facility]) Name Value Range Interpretation Code Description Data Ellie rce(s) Supporting Document(s) ID Date Data Source [id number] 12/16/2019 02:05:00 PM EST HILDA ([facility]) Name Value Range Interpretation Code Description Data Ellie rce(s) Supporting Document(s) ID Date Data Source [id number] 12/16/2019 02:05:00 PM EST HILDA ([facility]) Name Value Range Interpretation Code Description Data Ellie rce(s) Supporting Document(s) ID Date Data Source [id number] 12/16/2019 02:05:00 PM EST HILDA ([facility]) Name Value Range Interpretation Code Description Data Ellie rce(s) Supporting Document(s) ID Date Data Source [id number] 12/16/2019 02:05:00 PM EST HILDA [facility]) Name Value Range Interpretation Code Description Data Ellie rce(s) Supporting Document(s) ID Date Data Source [id number] 12/16/2019 02:05:00 [facility] Name Value Range Interpretation Code Description Data Ellie rce(s) Supporting Document(s) ID Date Data Source [id number] 12/16/2019 02:05:00 PM [facility] Name Value Range Interpretation Code Description Data Ellie rce(s) Supporting Document(s) ID Date Data Source [id number] 12/16/2019 02:05:00 PM EST [facility] Name Value Range Interpretation Code Description Data Ellie rce(s) Supporting Document(s) ID Date Data Source [id number] 12/16/2019 02:05:00 PM EST [facility] Name Value Range Interpretation Code Description Data Ellie rce(s) Supporting Document(s) ID Date Data Source [id number] 12/16/2019 02:05:00 PM EST [facility] Name Value Range Interpretation Code Description Data Ellie rce(s) Supporting Document(s) ID Date Data Source [id number] 12/11/2019 04:30:00 AM EST [facility] Name Value Range Interpretation Code Description Data Ellie rce(s) Supporting Document(s) SARS-CoV-2 (COVID-19) RNA [Presence] in Respiratory specimen by HITESH with probe detection not detected not detected Sars Cov 2 RNA [facility]) ID Date Data Source [id number] 12/11/2019 04:30:00 AM EST [facility]) Name Value Range Interpretation Code Description Data Ellie rce(s) Supporting Document(s) SARS-CoV-2 (COVID-19) RNA [Presence] in Respiratory specimen by HITESH with probe detection not detected not detected Sars Cov 2 RNA [facility]) ID Date Data Source [id number] 12/11/2019 04:30:00 AM EST [facility]) Name Value Range Interpretation Code Description Data Ellie rce(s) Supporting Document(s) SARS-CoV-2 (COVID-19) RNA [Presence] in Respiratory specimen by HITESH with probe detection not detected not detected Sars Cov 2 RNA [facility]) ID Date Data Source [id number] 12/11/2019 04:30:00 AM EST [facility]) Name Value Range Interpretation Code Description Data Ellie rce(s) Supporting Document(s) SARS-CoV-2 (COVID-19) RNA [Presence] in Respiratory specimen by HITESH with probe detection not detected not detected Sars Cov 2 RNA [facility]) ID Date Data Source [id number] 12/11/2019 04:30:00 AM EST [facility]) Name Value Range Interpretation Code Description Data Ellie rce(s) Supporting Document(s) SARS-CoV-2 (COVID-19) RNA [Presence] in Respiratory specimen by HITESH with probe detection not detected not detected Sars Cov 2 RNA [facility]) ID Date Data Source [id number] 12/11/2019 04:30:00 AM EST [facility]) Name Value Range Interpretation Code Description Data Ellie rce(s) Supporting Document(s) SARS-CoV-2 (COVID-19) RNA [Presence] in Respiratory specimen by HITESH with probe detection not detected not detected Sars Cov 2 RNA [facility]) ID Date Data Source [id number] 12/11/2019 04:30:00 AM EST [facility]) Name Value Range Interpretation Code Description Data Ellie rce(s) Supporting Document(s) SARS-CoV-2 (COVID-19) RNA [Presence] in Respiratory specimen by HITESH with probe detection not detected not detected Sars Cov 2 RNA [facility]) ID Date Data Source [id number] 12/11/2019 04:30:00 AM EST [facility]) Name Value Range Interpretation Code Description Data Ellie rce(s) Supporting Document(s) SARS-CoV-2 (COVID-19) RNA [Presence] in Respiratory specimen by HITESH with probe detection not detected not detected Sars Cov 2 RNA [facility]) ID Date Data Source [id number] 12/11/2019 04:30:00 AM EST [facility]) Name Value Range Interpretation Code Description Data Ellie rce(s) Supporting Document(s) SARS-CoV-2 (COVID-19) RNA [Presence] in Respiratory specimen by HITESH with probe detection not detected not detected Sars Cov 2 RNA [facility]) ID Date Data Source [id number] 12/11/2019 04:30:00 AM EST [facility]) Name Value Range Interpretation Code Description Data Ellie rce(s) Supporting Document(s) SARS-CoV-2 (COVID-19) RNA [Presence] in Respiratory specimen by HITESH with probe detection not detected not detected Sars Cov 2 RNA [facility]) ID Date Data Source [id number] 12/11/2019 04:30:00 AM EST [facility]) Name Value Range Interpretation Code Description Data Ellie rce(s) Supporting Document(s) SARS-CoV-2 (COVID-19) RNA [Presence] in Respiratory specimen by HITESH with probe detection not detected not detected Sars Cov 2 RNA [facility]) ID Date Data Source [id number] 12/11/2019 04:30:00 AM EST [facility]AYNER ([facility]) Name Value Range Interpretation Code Description Data Ellie rce(s) Supporting Document(s) SARS-CoV-2 (COVID-19) RNA [Presence] in Respiratory specimen by HITESH with probe detection not detected not detected Sars Cov 2 RNA [facility]) ID Date Data Source [id number] 12/11/2019 04:30:00 AM EST HILDA ([facility]) Name Value Range Interpretation Code Description Data Ellie rce(s) Supporting Document(s) SARS-CoV-2 (COVID-19) RNA [Presence] in Respiratory specimen by HIETSH with probe detection not detected not detected Sars Cov 2 RNA [facility]) ID Date Data Source [id number] 12/11/2019 04:30:00 AM EST [facility]) Name Value Range Interpretation Code Description Data Ellie rce(s) Supporting Document(s) SARS-CoV-2 (COVID-19) RNA [Presence] in Respiratory specimen by HITESH with probe detection not detected not detected Sars Cov 2 RNA [facility]) ID Date Data Source [id number] 12/11/2019 04:30:00 AM EST [facility] Name Value Range Interpretation Code Description Data Ellie rce(s) Supporting Document(s) SARS-CoV-2 (COVID-19) RNA [Presence] in Respiratory specimen by HITESH with probe detection not detected not detected Sars Cov 2 RNA [facility]) ID Date Data Source [id number] 12/11/2019 04:30:00 AM EST [facility]) Name Value Range Interpretation Code Description Data Ellie rce(s) Supporting Document(s) SARS-CoV-2 (COVID-19) RNA [Presence] in Respiratory specimen by HITESH with probe detection not detected not detected Sars Cov 2 RNA [facility] ([facility]) ID Date Data Source [id number] 12/11/2019 04:30:00 AM EST HILDA ([facility]) Name Value Range Interpretation Code Description Data Ellie rce(s) Supporting Document(s) SARS-CoV-2 (COVID-19) RNA [Presence] in Respiratory specimen by HITESH with probe detection not detected not detected Sars Cov 2 RNA [facility]) ID Date Data Source [id number] 12/11/2019 04:30:00 AM EST [facility]) Name Value Range Interpretation Code Description Data Ellie rce(s) Supporting Document(s) SARS-CoV-2 (COVID-19) RNA [Presence] in Respiratory specimen by HITESH with probe detection not detected not detected Sars Cov 2 RNA [facility]) ID Date Data Source [id number] 12/11/2019 04:30:00 AM EST [facility]) Name Value Range Interpretation Code Description Data Ellie rce(s) Supporting Document(s) SARS-CoV-2 (COVID-19) RNA [Presence] in Respiratory specimen by HITESH with probe detection not detected not detected Sars Cov 2 RNA [facility]) ID Date Data Source [id number] 12/11/2019 04:30:00 AM EST [facility]) Name Value Range Interpretation Code Description Data Ellie rce(s) Supporting Document(s) SARS-CoV-2 (COVID-19) RNA [Presence] in Respiratory specimen by HITESH with probe detection not detected not detected Sars Cov 2 RNA [facility]) ID Date Data Source [id number] 12/11/2019 04:30:00 AM EST [facility]) Name Value Range Interpretation Code Description Data Ellie rce(s) Supporting Document(s) SARS-CoV-2 (COVID-19) RNA [Presence] in Respiratory specimen by HITESH with probe detection not detected not detected Sars Cov 2 RNA [facility] ([facility]) ID Date Data Source [id number] 12/11/2019 04:30:00 AM EST HILDA ([facility]) Name Value Range Interpretation Code Description Data Ellie rce(s) Supporting Document(s) SARS-CoV-2 (COVID-19) RNA [Presence] in Respiratory specimen by HITESH with probe detection not detected not detected Sars Cov 2 RNA [facility]) ID Date Data Source [id number] 12/11/2019 04:30:00 AM EST [facility] Name Value Range Interpretation Code Description Data Ellie rce(s) Supporting Document(s) SARS-CoV-2 (COVID-19) RNA [Presence] in Respiratory specimen by HITESH with probe detection not detected not detected Sars Cov 2 RNA [facility]) ID Date Data Source [id number] 12/11/2019 04:30:00 AM EST [facility] Name Value Range Interpretation Code Description Data Ellie rce(s) Supporting Document(s) SARS-CoV-2 (COVID-19) RNA [Presence] in Respiratory specimen by HITESH with probe detection not detected not detected Sars Cov 2 RNA [facility] ID Date Data Source [id number] 12/11/2019 04:30:00 AM EST [facility]) Name Value Range Interpretation Code Description Data Ellie rce(s) Supporting Document(s) SARS-CoV-2 (COVID-19) RNA [Presence] in Respiratory specimen by HITESH with probe detection not detected not detected Sars Cov 2 RNA [facility]) ID Date Data Source [id number] 12/11/2019 04:30:00 AM EST [facility]) Name Value Range Interpretation Code Description Data Ellie rce(s) Supporting Document(s) SARS-CoV-2 (COVID-19) RNA [Presence] in Respiratory specimen by HITESH with probe detection not detected not detected Sars Cov 2 RNA [facility]) ID Date Data Source [id number] 12/11/2019 04:30:00 AM EST [facility]) Name Value Range Interpretation Code Description Data Ellie rce(s) Supporting Document(s) SARS-CoV-2 (COVID-19) RNA [Presence] in Respiratory specimen by HITESH with probe detection not detected not detected Sars Cov 2 RNA [facility]) ID Date Data Source [id number] 12/11/2019 04:30:00 AM EST [facility]) Name Value Range Interpretation Code Description Data Ellie rce(s) Supporting Document(s) SARS-CoV-2 (COVID-19) RNA [Presence] in Respiratory specimen by HITESH with probe detection not detected not detected Sars Cov 2 RNA [facility]) ID Date Data Source [id number] 12/11/2019 04:30:00 AM EST [facility]) Name Value Range Interpretation Code Description Data Ellie rce(s) Supporting Document(s) SARS-CoV-2 (COVID-19) RNA [Presence] in Respiratory specimen by HITESH with probe detection not detected not detected Sars Cov 2 RNA [facility]) ID Date Data Source [id number] 12/11/2019 04:30:00 AM EST [facility]) Name Value Range Interpretation Code Description Data Ellie rce(s) Supporting Document(s) SARS-CoV-2 (COVID-19) RNA [Presence] in Respiratory specimen by HITESH with probe detection not detected not detected Sars Cov 2 RNA [facility]) ID Date Data Source [id number] 12/11/2019 04:30:00 AM EST HILDA ([facility]) Name Value Range Interpretation Code Description Data Ellie rce(s) Supporting Document(s) SARS coronavirus 2 RNA [Presence] in Res piratory specimen by HITESH with probe detection not detected not detected Sars Cov 2 RNA [facility] ([facility]) ID Date Data Source [id number] 12/11/2019 04:30:00 AM EST HILDA ([facility]) Name Value Range Interpretation Code Description Data Ellie rce(s) Supporting Document(s) SARS coronavirus 2 RNA [Presence] in Res piratory specimen by HITESH with probe detection not detected not detected Sars Cov 2 RNA [facility] ([facility]) ID Date Data Source [id number] 12/11/2019 04:30:00 AM EST [facility] ([facility]) Name Value Range Interpretation Code Description Data Ellie rce(s) Supporting Document(s) SARS coronavirus 2 RNA [Presence] in Res piratory specimen by HITESH with probe detection not detected not detected Sars Cov 2 RNA [facility] ([facility]) ID Date Data Source [id number] 12/11/2019 04:30:00 AM EST [facility] ([facility]) Name Value Range Interpretation Code Description Data Ellie rce(s) Supporting Document(s) SARS coronavirus 2 RNA [Presence] in Res piratory specimen by HITESH with probe detection not detected not detected Sars Cov 2 RNA [facility]ILDA ([facility]) ID Date Data Source [id number] 12/11/2019 04:30:00 AM EST [facility] Name Value Range Interpretation Code Description Data Ellie rce(s) Supporting Document(s) SARS-COV-2 RNA RESP QL HITESH+PROBE [facility] This lab was ordered by [facility] and reported by [facility]. ID Date Data Source [id number] 12/11/2019 04:30:00 AM EST [facility] ([facility]) Name Value Range Interpretation Code Description Data Ellie rce(s) Supporting Document(s) SARS-CoV-2 (COVID-19) RNA [Presence] in Respiratory specimen by HITESH with probe detection not detected not detected Sars Cov 2 RNA [facility]) ID Date Data Source [id number] 12/11/2019 04:30:00 AM EST [facility] ([facility]) Name Value Range Interpretation Code Description Data Ellie rce(s) Supporting Document(s) SARS-CoV-2 (COVID-19) RNA [Presence] in Respiratory specimen by HITESH with probe detection not detected not detected Sars Cov 2 RNA [facility]) ID Date Data Source [id number] 12/11/2019 04:30:00 AM [facility]) Name Value Range Interpretation Code Description Data Ellie rce(s) Supporting Document(s) SARS-CoV-2 (COVID-19) RNA [Presence] in Respiratory specimen by HITESH with probe detection not detected not detected Sars Cov 2 RNA [facility]) ID Date Data Source [id number] 10/28/2019 05:05:00 PM EDT [facility] ([facility]) Name Value Range Interpretation Code Description Data Ellie rce(s) Supporting Document(s) Troponin Laboratory test result [facility] ([facility]) ID Date Data Source [id number] 10/28/2019 05:05:00 PM EDT [facility] ([facility]) Name Value Range Interpretation Code Description Data Ellie rce(s) Supporting Document(s) Creatine kinase [Enzymatic activity/volume] in Serum or Plasma 359 [facility] ([facility]) CPK-MB Laboratory test result [facility] ([facility]) ID Date Data Source [id number] 10/28/2019 03:32:56 PM EDT [facility] Measurements & CalculationsHeight: 72 inches (6 ft. [...] 2019 3:36 PMPatient History Medical History:Anxiety/panicInsomniaSurgical History:Family History:ZCE-pcxvqiOdvkzpa-jtqbpicPoaspm/Personal History:Smoking History:Patient has never smoked. Chief Complaintfollow-up [...] jaw, sadness/scared/depressed. Pt also was seen in [facility] ER last night/this morning for [...] during this visit, including review of any jyvv-bpo-eqcshmq medications, herbal therapies, and/or supplements.Allergy ReviewAllergy List [...] is? ExcellentAssessment & Plan Problems:Added: Chronic insomnia (KZE01-X34.04) Assessment: Instructions: As above.Chest pain, unspecified (FJR99-F30.9) Assessment: Instructions: Referral to cardiology for evaluation. Unlikely to be cardiac in nature with frequent labs/EKG.Bradycardia (ICD-427.89) (ICD10- R00.1) Assessment: Instructions: Likely secondary to routine fitness levels. However, given brother's syncopal episodes and loop recorder, will refer to cardiology for evaluation.Assessed:GENERALIZED ANXIETY DISORDER (ICD- 300.02) (ZOP67-E60.1) Assessment: Instructions: Continue current Lexapro daily and [...] HYDROXYZINE HCL 10 MG ORAL TABLET Qty: [id number] Refills: 30[Tablet] To: HYDROXYZINE HCL 10 MG ORAL TABLET-Take 1 tablet po q 6 hrs prnAllergies:No Known Allergies (updated 10/28/2019) Orders:Cardiology Consult [CPT-81626] Adult - Ofc Vst, EST, Level III [CPT- 56125] Follow-Up Return to clinic: in 2 months for follow upAdditional Follow- Up: cardio referral, anxietyClinical Visit Summary CompletedMedications:HYDROXYZINE HCL 25 MG ORAL TABLET (HYDROXYZINE HCL) Take 1- 2 tablets by mouth at bedtime prn insomnia #60[Tablet] x 1 Route:ORAL Entered and Authorized by: Terry AGUAYO Method used: [facility] (retail) [address] [place] [address] Note to Pharmacy: Route: ORAL; Indications: CHRONIC INSOMNIA;GENERALIZED ANXIETY DISORDER RxID: [id number] signed by Terry AGUAYO on 11/13/2019 at 8:30 AM Name Value Range Interpretation Code Description Data Ellie rce(s) Supporting Document(s) ID Date Data Source [id number] 10/28/2019 02:21:00 AM EDT [facility] Name Value Range Interpretation Code Description Data Ellie rce(s) Supporting Document(s) HCT 45.6 % 42.0-52.0 N [facility] HGB 14.9 g/dL 13.5-17.5 N [facility] MCH 32.7 G/DL pg 32.0-36.5 N [facility] MCHC 27.6 PG % 27.0-33.0 [facility] PLATELETS 259 10 10*3/mm3 150-450 N [facility] RBC 5.40 10 10*6/mm3 4.30-6.10 [facility] RDW 13.2 % 11.5-14.5 [facility] WBC TOTAL 10.0 4.0-10.0 N [facility] ID Date Data Source [id number] 10/28/2019 02:21:00 AM EDT [facility] Name Value Range Interpretation Code Description Data Ellie rce(s) Supporting Document(s) BG FASTING 102 mg/dL 70-100 [facility] ID Date Data Source [id number] 09/30/2019 01:44:56 PM EDT [facility] Measurements & CalculationsHeight: 72 [...] Present Illness (HPI)28 yo male presents for [facility] ER f/u. Pt states he has been having terrible migraines for a few days and yesterday woke up with heart racing, feeling like "brain on fire" and chest tightness. Went to [facility] ED last night and was [...] during this visit, including review of any bpwo-beh-uiqabgf medications, herbal therapies, and/or supplements.Allergy ReviewAllergy List [...] Problems:Assessed:Adjustment disorder with mixed emotional features (ICD-309.28) (TRB73-U63.23) Assessment: Instructions: Continue Lexapro daily. Hydroxyzine may be taken up to 2 tablets every 6 hrs daily as needed, with last dose at bedtime for insomnia. Ativan for severe panic, take 1/2 tablet to start and if no relief after 30 minutes then take second 1/2. New Rx sent for short supply.C/O - panic attack (ICD-300.01) (XWI28-N73.0) Assessment: Instructions: As above.Gastro-esophageal reflux disease without esophagitis (ICD-530.81) (UCS85-F77.9) Assessment: Instructions: Continue omeprazole as prescribed. Hold [...] - Ofc Vst, EST, Level III [CPT -95485] Follow-Up Return to clinic: as needed, as scheduled Clinical Visit Summary Completed Name Value Range Interpretation Code Description Data Ellie rce(s) Supporting Document(s) ID Date Data Source [id number] 09/30/2019 03:16:00 AM EDT [facility] Name Value Range Interpretation Code Description Data Ellie rce(s) Supporting Document(s) HCT 43.9 % 42.0-52.0 N [facility] HGB 15.1 g/dL 13.5-17.5 N [facility] MCH 34.4 G/DL pg 32.0-36.5 N [facility] MCHC 28.9 PG % 27.0-33.0 N [facility] PLATELETS 263 10 10*3/mm3 150-450 N [facility] RBC 5.22 10 10*6/mm3 4.30-6.10 N [facility] RDW 13.0 % 11.5-14.5 N [facility] WBC TOTAL 8.2 4.0-10.0 N [facility] ID Date Data Source [id number] 09/30/2019 03:16:00 AM EDT [facility] Name Value Range Interpretation Code Description Data Ellie rce(s) Supporting Document(s) BG FASTING 100 mg/dL 70-100 N [facility] T4, FREE 1.04 ng/dL 0.76-1.46 N [facility] TSH 2.080 microintl units/mL 0.358-3.[address] [facility] Procedure Social History Code Duration Value Status Description Data Source(s ) Smoking 01/07/2020 12:00:00 AM EST Patient is a former smoker completed Patient is a former smoker [facility] ([facility]) Vital Signs ID Date Data Source UNK Name Value Range Interpretation Code Description Data Source(s) Respiratory rate 12 /min 12 /[facility] Body height 72 [in_i] 72 [in_i] [facility] 6'0" Body weight 214.00 [lb_av] 214.00 [lb_av] MEDEN T ([facility], ) Body mass index (BMI) [Ratio] 29.0 kg/m2 29.0 k g/m2 [facility] ([facility], ) [place] body weight 178 [lb_av] 178 [lb_av] MEDEN T ([facility], ) Body temperature 97.7 [degF] 97.7 [degF] [facility] ([facility] ) Body height 72 [in_i] 72 [in_i] [facility] ([facility]) 6'0" Body weight 214.12 [lb_av] 214.12 [lb_av] MEDEN T ([facility]) Body mass index (BMI) [Ratio] 29.0 kg/m2 29.0 k g/m2 [facility] ([facility]) Diastolic blood pressure 76 mm[Hg] 76 mm[Hg] HILDA ([facility]) Body height 72 [in_i] 72 [in_i] HILDA ([facility]) Body mass index (BMI) [Ratio] 29.7 kg/m2 29.7 k g/m2 HILDA ([facility]) Systolic blood pressure 123 mm[Hg] 123 mm[Hg] A MOIZ ([facility]) Body weight 3507.2 [oz_av] 3507.2 [oz_av] ATHEN A ([facility]) Diastolic blood pressure 76 mm[Hg] 76 mm[Hg] HILDA ([facility]) Body height 72 [in_i] 72 [in_i] HILDA ([facility]) Body mass index (BMI) [Ratio] 29.7 kg/m2 29.7 k g/m2 HILDA ([facility]) Systolic blood pressure 123 mm[Hg] 123 mm[Hg] A LUISA ([facility]) Body weight 3507.2 [oz_av] 3507.2 [oz_av] ATHEN A ([facility]) Diastolic blood pressure 76 mm[Hg] 76 mm[Hg] HILDA ([facility]) Body height 72 [in_i] 72 [in_i] HILDA ([facility]) Body mass index (BMI) [Ratio] 29.7 kg/m2 29.7 k g/m2 HILDA ([facility]) Systolic blood pressure 123 mm[Hg] 123 mm[Hg] A LUISA ([facility]) Body weight 3507.2 [oz_av] 3507.2 [oz_av] ATHEN A ([facility]) Diastolic blood pressure 76 mm[Hg] 76 mm[Hg] HILDA ([facility]) Body height 72 [in_i] 72 [in_i] HILDA ([facility]) Body mass index (BMI) [Ratio] 29.7 kg/m2 29.7 k g/m2 HILDA ([facility]) Systolic blood pressure 123 mm[Hg] 123 mm[Hg] A LUISA ([facility]) Body weight 3507.2 [oz_av] 3507.2 [oz_av] ATHEN A ([facility]) Diastolic blood pressure 76 mm[Hg] 76 mm[Hg] HILDA ([facility]) Body height 72 [in_i] 72 [in_i] HILDA ([facility]) Body mass index (BMI) [Ratio] 29.7 kg/m2 29.7 k g/m2 HILDA ([facility]) Systolic blood pressure 123 mm[Hg] 123 mm[Hg] [facility] Body weight 3507.2 [oz_av] 3507.2 [oz_av] ATHEN A ([facility]) Diastolic blood pressure 76 mm[Hg] 76 mm[Hg] HILDA ([facility]) Body height 72 [in_i] 72 [in_i] HILDA ([facility]) Body mass index (BMI) [Ratio] 29.7 kg/m2 29.7 k g/m2 HILDA ([facility]) Systolic blood pressure 123 mm[Hg] 123 mm[Hg] A LUISA ([facility]) Body weight 3507.2 [oz_av] 3507.2 [oz_av] ATHEN A ([facility]) Diastolic blood pressure 76 mm[Hg] 76 mm[Hg] HILDA ([facility]) Body height 72 [in_i] 72 [in_i] HILDA ([facility]) Body mass index (BMI) [Ratio] 29.7 kg/m2 29.7 k g/m2 [facility] ([facility]) Systolic blood pressure 123 mm[Hg] 123 mm[Hg] [facility] Body weight 3507.2 [oz_av] 3507.2 [oz_av] ATHEN A ([facility]) Diastolic blood pressure 76 mm[Hg] 76 mm[Hg] HILDA ([facility]) Body height 72 [in_i] 72 [in_i] HILDA ([facility]) Body mass index (BMI) [Ratio] 29.7 kg/m2 29.7 k g/m2 [facility] ([facility]) Systolic blood pressure 123 mm[Hg] 123 mm[Hg] [facility]) Body weight 3507.2 [oz_av] 3507.2 [oz_av] ATHEN A ([facility]) Diastolic blood pressure 76 mm[Hg] 76 mm[Hg] HILDA ([facility]) Body height 72 [in_i] 72 [in_i] HILDA ([facility]) Body mass index (BMI) [Ratio] 29.7 kg/m2 29.7 k g/m2 [facility] ([facility]) Systolic blood pressure 123 mm[Hg] 123 mm[Hg] A [facility] ([facility]) Body weight 3507.2 [oz_av] 3507.2 [oz_av] ATHEN A ([facility]) Diastolic blood pressure 76 mm[Hg] 76 mm[Hg] HILDA ([facility]) Body height 72 [in_i] 72 [in_i] HILDA ([facility]) Body mass index (BMI) [Ratio] 29.7 kg/m2 29.7 k g/m2 [facility] ([facility]) Systolic blood pressure 123 mm[Hg] 123 mm[Hg] [facility]) Body weight 3507.2 [oz_av] 3507.2 [oz_av] ATHEN A ([facility]) Systolic blood pressure 123 mm[Hg] 123 mm[Hg] [facility]) Body weight 3507.2 [oz_av] 3507.2 [oz_av] ATHEN A ([facility]) Diastolic blood pressure 76 mm[Hg] 76 mm[Hg] HILDA ([facility]) Body height 72 [in_i] 72 [in_i] HILDA ([facility]) Body mass index (BMI) [Ratio] 29.7 kg/m2 29.7 k g/m2 HILDA ([facility]) Diastolic blood pressure 76 mm[Hg] 76 mm[Hg] HILDA ([facility]) Body height 72 [in_i] 72 [in_i] HILDA ([facility]) Body mass index (BMI) [Ratio] 29.7 kg/m2 29.7 k g/m2 [facility]DA ([facility]) Systolic blood pressure 123 mm[Hg] 123 mm[Hg] [facility]) Body weight 3507.2 [oz_av] 3507.2 [oz_av] ATHEN A ([facility]) Diastolic blood pressure 76 mm[Hg] 76 mm[Hg] HILDA ([facility]) Body height 72 [in_i] 72 [in_i] HILDA ([facility]) Body mass index (BMI) [Ratio] 29.7 kg/m2 29.7 k g/m2 [facility] ([facility]) Systolic blood pressure 123 mm[Hg] 123 mm[Hg] [facility]) Body weight 3507.2 [oz_av] 3507.2 [oz_av] ATHEN A ([facility]) Diastolic blood pressure 76 mm[Hg] 76 mm[Hg] HILDA ([facility]) Body height 72 [in_i] 72 [in_i] HILDA ([facility]) Body mass index (BMI) [Ratio] 29.7 kg/m2 29.7 k g/m2 H[facility]DA ([facility]) Systolic blood pressure 123 mm[Hg] 123 mm[Hg] A THENA ([facility]) Body weight 3507.2 [oz_av] 3507.2 [oz_av] ATHEN A ([facility]) Diastolic blood pressure 76 mm[Hg] 76 mm[Hg] HILDA ([facility]) Body height 72 [in_i] 72 [in_i] HILDA ([facility]) Body mass index (BMI) [Ratio] 29.7 kg/m2 29.7 k g/m2 HILDA ([facility]) Systolic blood pressure 123 mm[Hg] 123 mm[Hg] A [facility] ([facility]) Body weight 3507.2 [oz_av] 3507.2 [oz_av] ATHEN A ([facility]) Diastolic blood pressure 76 mm[Hg] 76 mm[Hg] HILDA ([facility]) Body height 72 [in_i] 72 [in_i] HILDA ([facility]) Body mass index (BMI) [Ratio] 29.7 kg/m2 29.7 k g/m2 [facility] ([facility]) Systolic blood pressure 123 mm[Hg] 123 mm[Hg] [facility] Body weight 3507.2 [oz_av] 3507.2 [oz_av] ATHEN A ([facility]) Diastolic blood pressure 76 mm[Hg] 76 mm[Hg] HILDA ([facility]) Body height 72 [in_i] 72 [in_i] HILDA ([facility]) Body mass index (BMI) [Ratio] 29.7 kg/m2 29.7 k g/m2 [facility] ([facility]) Systolic blood pressure 123 mm[Hg] 123 mm[Hg] [facility]) Body weight 3507.2 [oz_av] 3507.2 [oz_av] ATHEN A ([facility]) Diastolic blood pressure 76 mm[Hg] 76 mm[Hg] HILDA ([facility]) Body height 72 [in_i] 72 [in_i] HILDA ([facility]) Body mass index (BMI) [Ratio] 29.7 kg/m2 29.7 k g/m2 [facility] ([facility]) Systolic blood pressure 123 mm[Hg] 123 mm[Hg] A THENA ([facility]) Body weight 3507.2 [oz_av] 3507.2 [oz_av] ATHEN A ([facility]) Diastolic blood pressure 76 mm[Hg] 76 mm[Hg] HILDA ([facility]) Body height 72 [in_i] 72 [in_i] HILDA ([facility]) Body mass index (BMI) [Ratio] 29.7 kg/m2 29.7 k g/m2 [facility] ([facility]) Systolic blood pressure 123 mm[Hg] 123 mm[Hg] [facility]) Body weight 3507.2 [oz_av] 3507.2 [oz_av] ATHEN A ([facility]) Diastolic blood pressure 73 mm[Hg] 73 mm[Hg] HILDA ([facility]) Body height 72 [in_i] 72 [in_i] HILDA ([facility]) Body mass index (BMI) [Ratio] 30.5 kg/m2 30.5 k g/m2 [facility] ([facility]) Systolic blood pressure 119 mm[Hg] 119 mm[Hg] A [facility] ([facility]) Body weight 3603.2 [oz_av] 3603.2 [oz_av] ATHEN A ([facility]) Diastolic blood pressure 73 mm[Hg] 73 mm[Hg] HILDA ([facility]) Body height 72 [in_i] 72 [in_i] HILDA ([facility]) Body mass index (BMI) [Ratio] 30.5 kg/m2 30.5 k g/m2 HILDA ([facility]) Systolic blood pressure 119 mm[Hg] 119 mm[Hg] A [facility] ([facility]) Body weight 3603.2 [oz_av] 3603.2 [oz_av] ATHEN A ([facility]) Diastolic blood pressure 73 mm[Hg] 73 mm[Hg] HILDA ([facility]) Body height 72 [in_i] 72 [in_i] HILDA ([facility]) Body mass index (BMI) [Ratio] 30.5 kg/m2 30.5 k g/m2 HILDA ([facility]) Systolic blood pressure 119 mm[Hg] 119 mm[Hg] A THENA ([facility]) Body weight 3603.2 [oz_av] 3603.2 [oz_av] ATHEN A ([facility]) Diastolic blood pressure 73 mm[Hg] 73 mm[Hg] HILDA ([facility]) Body height 72 [in_i] 72 [in_i] HILDA ([facility]) Body mass index (BMI) [Ratio] 30.5 kg/m2 30.5 k g/m2 HILDA ([facility]) Systolic blood pressure 119 mm[Hg] 119 mm[Hg] A MOIZ ([facility]) Body weight 3603.2 [oz_av] 3603.2 [oz_av] ATHEN A ([facility]) Diastolic blood pressure 73 mm[Hg] 73 mm[Hg] HILDA ([facility]) Body height 72 [in_i] 72 [in_i] HILDA ([facility]) Body mass index (BMI) [Ratio] 30.5 kg/m2 30.5 k g/m2 H[facility]DA ([facility]) Systolic blood pressure 119 mm[Hg] 119 mm[Hg] A THENA ([facility]) Body weight 3603.2 [oz_av] 3603.2 [oz_av] ATHEN A ([facility]) Diastolic blood pressure 73 mm[Hg] 73 mm[Hg] HILDA ([facility]) Body height 72 [in_i] 72 [in_i] HILDA ([facility]) Body mass index (BMI) [Ratio] 30.5 kg/m2 30.5 k g/m2 H[facility]DA ([facility]) Systolic blood pressure 119 mm[Hg] 119 mm[Hg] A THENA ([facility]) Body weight 3603.2 [oz_av] 3603.2 [oz_av] ATHEN A ([facility]) Diastolic blood pressure 73 mm[Hg] 73 mm[Hg] HILDA ([facility]) Body height 72 [in_i] 72 [in_i] HILDA ([facility]) Body mass index (BMI) [Ratio] 30.5 kg/m2 30.5 k g/m2 [facility] ([facility]) Systolic blood pressure 119 mm[Hg] 119 mm[Hg] A THENA ([facility]) Body weight 3603.2 [oz_av] 3603.2 [oz_av] ATHEN A ([facility]) Diastolic blood pressure 73 mm[Hg] 73 mm[Hg] HILDA ([facility]) Body height 72 [in_i] 72 [in_i] HILDA ([facility]) Body mass index (BMI) [Ratio] 30.5 kg/m2 30.5 k g/m2 HILDA ([facility]) Systolic blood pressure 119 mm[Hg] 119 mm[Hg] A THENA ([facility]) Body weight 3603.2 [oz_av] 3603.2 [oz_av] ATHEN A ([facility]) Diastolic blood pressure 73 mm[Hg] 73 mm[Hg] HILDA ([facility]) Body height 72 [in_i] 72 [in_i] HILDA ([facility]) Body mass index (BMI) [Ratio] 30.5 kg/m2 30.5 k g/m2 HILDA ([facility]) Systolic blood pressure 119 mm[Hg] 119 mm[Hg] A THENA ([facility]) Body weight 3603.2 [oz_av] 3603.2 [oz_av] ATHEN A ([facility]) Diastolic blood pressure 73 mm[Hg] 73 mm[Hg] HILDA ([facility]) Body height 72 [in_i] 72 [in_i] HILDA ([facility]) Body mass index (BMI) [Ratio] 30.5 kg/m2 30.5 k g/m2 HILDA ([facility]) Systolic blood pressure 119 mm[Hg] 119 mm[Hg] A THENA ([facility]) Body weight 3603.2 [oz_av] 3603.2 [oz_av] ATHEN A ([facility]) Diastolic blood pressure 73 mm[Hg] 73 mm[Hg] HILDA ([facility]) Body height 72 [in_i] 72 [in_i] HILDA ([facility]) Body mass index (BMI) [Ratio] 30.5 kg/m2 30.5 k g/m2 HILDA ([facility]) Systolic blood pressure 119 mm[Hg] 119 mm[Hg] A THENA ([facility]) Body weight 3603.2 [oz_av] 3603.2 [oz_av] ATHEN A ([facility]) Diastolic blood pressure 73 mm[Hg] 73 mm[Hg] HILDA ([facility]) Body height 72 [in_i] 72 [in_i] HILDA ([facility]) Body mass index (BMI) [Ratio] 30.5 kg/m2 30.5 k g/m2 HILDA ([facility]) Systolic blood pressure 119 mm[Hg] 119 mm[Hg] A MOIZ ([facility]) Body weight 3603.2 [oz_av] 3603.2 [oz_av] ATHEN A ([facility]) Diastolic blood pressure 73 mm[Hg] 73 mm[Hg] HILDA ([facility]) Body height 72 [in_i] 72 [in_i] HILDA ([facility]) Body mass index (BMI) [Ratio] 30.5 kg/m2 30.5 k g/m2 HILDA ([facility]) Systolic blood pressure 119 mm[Hg] 119 mm[Hg] A MOIZ ([facility]) Body weight 3603.2 [oz_av] 3603.2 [oz_av] ATHEN A ([facility]) Diastolic blood pressure 73 mm[Hg] 73 mm[Hg] HILDA ([facility]) Body height 72 [in_i] 72 [in_i] HILDA ([facility]) Body mass index (BMI) [Ratio] 30.5 kg/m2 30.5 k g/m2 HILDA ([facility]) Systolic blood pressure 119 mm[Hg] 119 mm[Hg] A MOIZ ([facility]) Body weight 3603.2 [oz_av] 3603.2 [oz_av] ATHEN A ([facility]) Diastolic blood pressure 73 mm[Hg] 73 mm[Hg] HILDA ([facility]) Body height 72 [in_i] 72 [in_i] HILDA ([facility]) Body mass index (BMI) [Ratio] 30.5 kg/m2 30.5 k g/m2 HILDA ([facility]) Systolic blood pressure 119 mm[Hg] 119 mm[Hg] A MOIZ ([facility]) Body weight 3603.2 [oz_av] 3603.2 [oz_av] ATHEN A ([facility]) Diastolic blood pressure 73 mm[Hg] 73 mm[Hg] HILDA ([facility]) Body height 72 [in_i] 72 [in_i] HILDA ([facility]) Body mass index (BMI) [Ratio] 30.5 kg/m2 30.5 k g/m2 HILDA ([facility]) Systolic blood pressure 119 mm[Hg] 119 mm[Hg] A LUISA ([facility]) Body weight 3603.2 [oz_av] 3603.2 [oz_av] ATHEN A ([facility]) Diastolic blood pressure 73 mm[Hg] 73 mm[Hg] HILDA ([facility]) Body height 72 [in_i] 72 [in_i] HILDA ([facility]) Body mass index (BMI) [Ratio] 30.5 kg/m2 30.5 k g/m2 H[facility]DA ([facility]) Systolic blood pressure 119 mm[Hg] 119 mm[Hg] A [facility] ([facility]) Body weight 3603.2 [oz_av] 3603.2 [oz_av] ATHEN A ([facility]) Diastolic blood pressure 73 mm[Hg] 73 mm[Hg] HILDA ([facility]) Body height 72 [in_i] 72 [in_i] HILDA ([facility]) Body mass index (BMI) [Ratio] 30.5 kg/m2 30.5 k g/m2 [facility] ([facility]) Systolic blood pressure 119 mm[Hg] 119 mm[Hg] A MOIZ ([facility]) Body weight 3603.2 [oz_av] 3603.2 [oz_av] ATHEN A ([facility]) Diastolic blood pressure 73 mm[Hg] 73 mm[Hg] HILDA ([facility]) Body height 72 [in_i] 72 [in_i] H[facility]DA ([facility]) Body mass index (BMI) [Ratio] 30.5 kg/m2 30.5 k g/m2 [facility] ([facility]) Systolic blood pressure 119 mm[Hg] 119 mm[Hg] [facility]) Body weight 3603.2 [oz_av] 3603.2 [oz_av] ATHEN A ([facility]) Diastolic blood pressure 73 mm[Hg] 73 mm[Hg] HILDA ([facility]) Body height 72 [in_i] 72 [in_i] HILDA ([facility]) Body mass index (BMI) [Ratio] 30.5 kg/m2 30.5 k g/m2 [facility] ([facility]) Systolic blood pressure 119 mm[Hg] 119 mm[Hg] [facility]) Body weight 3603.2 [oz_av] 3603.2 [oz_av] ATHEN A ([facility]) Diastolic blood pressure 73 mm[Hg] 73 mm[Hg] HILDA ([facility]) Body height 72 [in_i] 72 [in_i] HILDA ([facility]) Body mass index (BMI) [Ratio] 30.5 kg/m2 30.5 k g/m2 [facility]DA ([facility]) Systolic blood pressure 119 mm[Hg] 119 mm[Hg] A [facility] ([facility]) Body weight 3603.2 [oz_av] 3603.2 [oz_av] ATHEN A ([facility]) Body mass index (BMI) [Ratio] 30.3 kg/m2 30.3 k g/m2 HILDA ([facility]) Systolic blood pressure 128 mm[Hg] 128 mm[Hg] [facility]) Diastolic blood pressure 81 mm[Hg] 81 mm[Hg] HILDA ([facility]) Body height 72 [in_i] 72 [in_i] HILDA ([facility]) Body mass index (BMI) [Ratio] 30.3 kg/m2 30.3 k g/m2 [facility]DA ([facility]) Systolic blood pressure 128 mm[Hg] 128 mm[Hg] [facility]) Body weight 3574.4 [oz_av] 3574.4 [oz_av] ATHEN A ([facility]) Diastolic blood pressure 81 mm[Hg] 81 mm[Hg] HILDA ([facility]) Body height 72 [in_i] 72 [in_i] HILDA ([facility]) Body mass index (BMI) [Ratio] 30.3 kg/m2 30.3 k g/m2 [facility] ([facility]) Systolic blood pressure 128 mm[Hg] 128 mm[Hg] A THENA ([facility]) Body weight 3574.4 [oz_av] 3574.4 [oz_av] ATHEN A ([facility]) Diastolic blood pressure 81 mm[Hg] 81 mm[Hg] HILDA ([facility]) Body height 72 [in_i] 72 [in_i] HILDA ([facility]) Body mass index (BMI) [Ratio] 30.3 kg/m2 30.3 k g/m2 [facility] ([facility]) Systolic blood pressure 128 mm[Hg] 128 mm[Hg] A THENA ([facility]) Body weight 3574.4 [oz_av] 3574.4 [oz_av] ATHEN A ([facility]) Diastolic blood pressure 81 mm[Hg] 81 mm[Hg] HILDA ([facility]) Body height 72 [in_i] 72 [in_i] HILDA ([facility]) Body mass index (BMI) [Ratio] 30.3 kg/m2 30.3 k g/m2 [facility]DA ([facility]) Systolic blood pressure 128 mm[Hg] 128 mm[Hg] A THENA ([facility]) Body weight 3574.4 [oz_av] 3574.4 [oz_av] ATHEN A ([facility]) Diastolic blood pressure 81 mm[Hg] 81 mm[Hg] HILDA ([facility]) Body height 72 [in_i] 72 [in_i] HILDA ([facility]) Body mass index (BMI) [Ratio] 30.3 kg/m2 30.3 k g/m2 [facility]DA ([facility]) Systolic blood pressure 128 mm[Hg] 128 mm[Hg] A THENA ([facility]) Body weight 3574.4 [oz_av] 3574.4 [oz_av] ATHEN A ([facility]) Diastolic blood pressure 81 mm[Hg] 81 mm[Hg] HILDA ([facility]) Body height 72 [in_i] 72 [in_i] HILDA ([facility]) Body mass index (BMI) [Ratio] 30.3 kg/m2 30.3 k g/m2 [facility]DA ([facility]) Systolic blood pressure 128 mm[Hg] 128 mm[Hg] A LUISA ([facility]) Body weight 3574.4 [oz_av] 3574.4 [oz_av] ATHEN A ([facility]) Diastolic blood pressure 81 mm[Hg] 81 mm[Hg] HILDA ([facility]) Body height 72 [in_i] 72 [in_i] HILDA ([facility]) Body mass index (BMI) [Ratio] 30.3 kg/m2 30.3 k g/m2 [facility]DA ([facility]) Systolic blood pressure 128 mm[Hg] 128 mm[Hg] A MOIZ ([facility]) Body weight 3574.4 [oz_av] 3574.4 [oz_av] ATHEN A ([facility]) Diastolic blood pressure 81 mm[Hg] 81 mm[Hg] HILDA ([facility]) Body height 72 [in_i] 72 [in_i] HILDA ([facility]) Body mass index (BMI) [Ratio] 30.3 kg/m2 30.3 k g/m2 [facility]DA ([facility]) Systolic blood pressure 128 mm[Hg] 128 mm[Hg] A LUISA ([facility]) Body weight 3574.4 [oz_av] 3574.4 [oz_av] ATHEN A ([facility]) Diastolic blood pressure 81 mm[Hg] 81 mm[Hg] HILDA ([facility]) Body height 72 [in_i] 72 [in_i] HILDA ([facility]) Body mass index (BMI) [Ratio] 30.3 kg/m2 30.3 k g/m2 [facility] ([facility]) Systolic blood pressure 128 mm[Hg] 128 mm[Hg] A THENA ([facility]) Body weight 3574.4 [oz_av] 3574.4 [oz_av] ATHEN A ([facility]) Diastolic blood pressure 81 mm[Hg] 81 mm[Hg] HILDA ([facility]) Body height 72 [in_i] 72 [in_i] H[facility]DA ([facility]) Body mass index (BMI) [Ratio] 30.3 kg/m2 30.3 k g/m2 [facility] ([facility]) Systolic blood pressure 128 mm[Hg] 128 mm[Hg] [facility]) Body weight 3574.4 [oz_av] 3574.4 [oz_av] ATHEN A ([facility]) Diastolic blood pressure 81 mm[Hg] 81 mm[Hg] HILDA ([facility]) Body height 72 [in_i] 72 [in_i] [facility]DA ([facility]) Body mass index (BMI) [Ratio] 30.3 kg/m2 30.3 k g/m2 [facility] ([facility]) Systolic blood pressure 128 mm[Hg] 128 mm[Hg] [facility]) Body weight 3574.4 [oz_av] 3574.4 [oz_av] ATHEN A ([facility]) Diastolic blood pressure 81 mm[Hg] 81 mm[Hg] HILDA ([facility]) Body height 72 [in_i] 72 [in_i] H[facility]DA ([facility]) Body weight 3574.4 [oz_av] 3574.4 [oz_av] ATHEN A ([facility]) Diastolic blood pressure 81 mm[Hg] 81 mm[Hg] HILDA ([facility]) Body height 72 [in_i] 72 [in_i] [facility]DA ([facility]) Body mass index (BMI) [Ratio] 30.3 kg/m2 30.3 k g/m2 [facility] ([facility]) Systolic blood pressure 128 mm[Hg] 128 mm[Hg] [facility] Body weight 3574.4 [oz_av] 3574.4 [oz_av] ATHEN A ([facility]) Diastolic blood pressure 81 mm[Hg] 81 mm[Hg] HILDA ([facility]) Body height 72 [in_i] 72 [in_i] [facility]DA ([facility]) Body mass index (BMI) [Ratio] 30.3 kg/m2 30.3 k g/m2 [facility] ([facility]) Systolic blood pressure 128 mm[Hg] 128 mm[Hg] [facility] Body weight 3574.4 [oz_av] 3574.4 [oz_av] ATHEN A ([facility]) Diastolic blood pressure 81 mm[Hg] 81 mm[Hg] HILDA ([facility]) Body height 72 [in_i] 72 [in_i] [facility]DA ([facility]) Body mass index (BMI) [Ratio] 30.3 kg/m2 30.3 k g/m2 [facility] ([facility]) Systolic blood pressure 128 mm[Hg] 128 mm[Hg] [facility]) Body weight 3574.4 [oz_av] 3574.4 [oz_av] ATHEN A ([facility]) Diastolic blood pressure 81 mm[Hg] 81 mm[Hg] [facility] [facility]) Body height 72 [in_i] 72 [in_i] HILDA ([facility]) Body mass index (BMI) [Ratio] 30.3 kg/m2 30.3 k g/m2 HILDA ([facility]) Systolic blood pressure 128 mm[Hg] 128 mm[Hg] A THENA ([facility]) Body weight 3574.4 [oz_av] 3574.4 [oz_av] ATHEN A ([facility]) Diastolic blood pressure 81 mm[Hg] 81 mm[Hg] HILDA ([facility]) Body height 72 [in_i] 72 [in_i] HILDA ([facility]) Body mass index (BMI) [Ratio] 30.3 kg/m2 30.3 k g/m2 HILDA ([facility]) Systolic blood pressure 128 mm[Hg] 128 mm[Hg] A THENA ([facility]) Body weight 3574.4 [oz_av] 3574.4 [oz_av] ATHEN A ([facility]) Diastolic blood pressure 81 mm[Hg] 81 mm[Hg] HILDA ([facility]) Body height 72 [in_i] 72 [in_i] HILDA ([facility]) Body mass index (BMI) [Ratio] 30.3 kg/m2 30.3 k g/m2 HILDA ([facility]) Systolic blood pressure 128 mm[Hg] 128 mm[Hg] A THENA ([facility]) Body weight 3574.4 [oz_av] 3574.4 [oz_av] ATHEN A ([facility]) Diastolic blood pressure 81 mm[Hg] 81 mm[Hg] HILDA ([facility]) Body height 72 [in_i] 72 [in_i] HILDA ([facility]) Body mass index (BMI) [Ratio] 30.3 kg/m2 30.3 k g/m2 HILDA ([facility]) Systolic blood pressure 128 mm[Hg] 128 mm[Hg] [facility]) Body weight 3574.4 [oz_av] 3574.4 [oz_av] ATHEN A ([facility]) Diastolic blood pressure 81 mm[Hg] 81 mm[Hg] HILDA ([facility]) Body height 72 [in_i] 72 [in_i] HILDA ([facility]) Body mass index (BMI) [Ratio] 30.3 kg/m2 30.3 k g/m2 HILDA ([facility]) Systolic blood pressure 128 mm[Hg] 128 mm[Hg] A THENA ([facility]) Body weight 3574.4 [oz_av] 3574.4 [oz_av] ATHEN A ([facility]) Diastolic blood pressure 81 mm[Hg] 81 mm[Hg] HILDA ([facility]) Body height 72 [in_i] 72 [in_i] HILDA ([facility]) Body mass index (BMI) [Ratio] 30.3 kg/m2 30.3 k g/m2 HILDA ([facility]) Systolic blood pressure 128 mm[Hg] 128 mm[Hg] A THENA ([facility]) Body weight 3574.4 [oz_av] 3574.4 [oz_av] ATHEN A ([facility]) Diastolic blood pressure 81 mm[Hg] 81 mm[Hg] HILDA ([facility]) Body height 72 [in_i] 72 [in_i] HILDA ([facility]) Body mass index (BMI) [Ratio] 30.3 kg/m2 30.3 k g/m2 HILDA ([facility]) Systolic blood pressure 128 mm[Hg] 128 mm[Hg] [facility]) Body weight 3574.4 [oz_av] 3574.4 [oz_av] ATHEN A ([facility]) Diastolic blood pressure 81 mm[Hg] 81 mm[Hg] HILDA ([facility]) Body height 72 [in_i] 72 [in_i] HILDA ([facility]) Body mass index (BMI) [Ratio] 30.3 kg/m2 30.3 k g/m2 HILDA ([facility]) Systolic blood pressure 128 mm[Hg] 128 mm[Hg] [facility]) Body weight 3574.4 [oz_av] 3574.4 [oz_av] ATHEN A ([facility]) Diastolic blood pressure 82 mm[Hg] 82 mm[Hg] HILDA ([facility]) Diastolic blood pressure 81 mm[Hg] 81 mm[Hg] HILDA ([facility]) Body height 72 [in_i] 72 [in_i] HILDA ([facility]) Body mass index (BMI) [Ratio] 30.5 kg/m2 30.5 k g/m2 HILDA ([facility]) Systolic blood pressure 127 mm[Hg] 127 mm[Hg] [facility]) Systolic blood pressure 145 mm[Hg] 145 mm[Hg] A THENA ([facility]) Body weight 3596.8 [oz_av] 3596.8 [oz_av] ATHEN A ([facility]) Diastolic blood pressure 82 mm[Hg] 82 mm[Hg] HILDA ([facility]) Diastolic blood pressure 81 mm[Hg] 81 mm[Hg] HILDA ([facility]) Body height 72 [in_i] 72 [in_i] HILDA ([facility]) Body mass index (BMI) [Ratio] 30.5 kg/m2 30.5 k g/m2 HILDA ([facility]) Systolic blood pressure 127 mm[Hg] 127 mm[Hg] A THENA ([facility]) Systolic blood pressure 145 mm[Hg] 145 mm[Hg] [facility]) Body weight 3596.8 [oz_av] 3596.8 [oz_av] ATHEN A ([facility]) Diastolic blood pressure 82 mm[Hg] 82 mm[Hg] HILDA ([facility]) Diastolic blood pressure 81 mm[Hg] 81 mm[Hg] HILDA ([facility]) Body height 72 [in_i] 72 [in_i] HILDA ([facility]) Body mass index (BMI) [Ratio] 30.5 kg/m2 30.5 k g/m2 HILDA ([facility]) Systolic blood pressure 127 mm[Hg] 127 mm[Hg] [facility]) Systolic blood pressure 145 mm[Hg] 145 mm[Hg] A [facility]) Body weight 3596.8 [oz_av] 3596.8 [oz_av] ATHEN A ([facility]) Diastolic blood pressure 82 mm[Hg] 82 mm[Hg] HILDA ([facility]) Diastolic blood pressure 81 mm[Hg] 81 mm[Hg] HILDA ([facility]) Body height 72 [in_i] 72 [in_i] HILDA ([facility]) Body mass index (BMI) [Ratio] 30.5 kg/m2 30.5 k g/m2 HILDA ([facility]) Systolic blood pressure 127 mm[Hg] 127 mm[Hg] A THENA ([facility]) Systolic blood pressure 145 mm[Hg] 145 mm[Hg] A THENA ([facility]) Body weight 3596.8 [oz_av] 3596.8 [oz_av] ATHEN A ([facility]) Diastolic blood pressure 82 mm[Hg] 82 mm[Hg] HILDA ([facility]) Diastolic blood pressure 81 mm[Hg] 81 mm[Hg] HILDA ([facility]) Body height 72 [in_i] 72 [in_i] HILDA ([facility]) Body mass index (BMI) [Ratio] 30.5 kg/m2 30.5 k g/m2 HILDA ([facility]) Systolic blood pressure 127 mm[Hg] 127 mm[Hg] A THENA ([facility]) Systolic blood pressure 145 mm[Hg] 145 mm[Hg] A THENA ([facility]) Body weight 3596.8 [oz_av] 3596.8 [oz_av] ATHEN A ([facility]) Diastolic blood pressure 82 mm[Hg] 82 mm[Hg] HILDA ([facility]) Diastolic blood pressure 81 mm[Hg] 81 mm[Hg] HILDA ([facility]) Body height 72 [in_i] 72 [in_i] HILDA ([facility]) Body mass index (BMI) [Ratio] 30.5 kg/m2 30.5 k g/m2 HILDA ([facility]) Systolic blood pressure 127 mm[Hg] 127 mm[Hg] [facility]) Systolic blood pressure 145 mm[Hg] 145 mm[Hg] A [facility] ([facility]) Body weight 3596.8 [oz_av] 3596.8 [oz_av] ATHEN A ([facility]) Diastolic blood pressure 82 mm[Hg] 82 mm[Hg] HILDA ([facility]) Diastolic blood pressure 81 mm[Hg] 81 mm[Hg] HILDA ([facility]) Body height 72 [in_i] 72 [in_i] HILDA ([facility]) Body mass index (BMI) [Ratio] 30.5 kg/m2 30.5 k g/m2 HILDA ([facility]) Systolic blood pressure 127 mm[Hg] 127 mm[Hg] A THENA ([facility]) Systolic blood pressure 145 mm[Hg] 145 mm[Hg] A THENA ([facility]) Body weight 3596.8 [oz_av] 3596.8 [oz_av] ATHEN A ([facility]) Diastolic blood pressure 82 mm[Hg] 82 mm[Hg] HILDA ([facility]) Diastolic blood pressure 81 mm[Hg] 81 mm[Hg] HILDA ([facility]) Body height 72 [in_i] 72 [in_i] HILDA ([facility]) Body mass index (BMI) [Ratio] 30.5 kg/m2 30.5 k g/m2 HILDA ([facility]) Systolic blood pressure 127 mm[Hg] 127 mm[Hg] A THENA ([facility]) Systolic blood pressure 145 mm[Hg] 145 mm[Hg] A THENA ([facility]) Body weight 3596.8 [oz_av] 3596.8 [oz_av] ATHEN A ([facility]) Diastolic blood pressure 82 mm[Hg] 82 mm[Hg] HILDA ([facility]) Diastolic blood pressure 81 mm[Hg] 81 mm[Hg] HILDA ([facility]) Body height 72 [in_i] 72 [in_i] HILDA ([facility]) Body mass index (BMI) [Ratio] 30.5 kg/m2 30.5 k g/m2 HILDA ([facility]) Systolic blood pressure 127 mm[Hg] 127 mm[Hg] [facility]) Systolic blood pressure 145 mm[Hg] 145 mm[Hg] A [facility]) Body weight 3596.8 [oz_av] 3596.8 [oz_av] ATHEN A ([facility]) Diastolic blood pressure 82 mm[Hg] 82 mm[Hg] HILDA ([facility]) Diastolic blood pressure 81 mm[Hg] 81 mm[Hg] HILDA ([facility]) Body height 72 [in_i] 72 [in_i] HILDA ([facility]) Body mass index (BMI) [Ratio] 30.5 kg/m2 30.5 k g/m2 HILDA ([facility]) Systolic blood pressure 127 mm[Hg] 127 mm[Hg] A THENA ([facility]) Systolic blood pressure 145 mm[Hg] 145 mm[Hg] A THENA ([facility]) Body weight 3596.8 [oz_av] 3596.8 [oz_av] ATHEN A ([facility]) Diastolic blood pressure 82 mm[Hg] 82 mm[Hg] HILDA ([facility]) Diastolic blood pressure 81 mm[Hg] 81 mm[Hg] HILDA ([facility]) Body height 72 [in_i] 72 [in_i] HILDA ([facility]) Body mass index (BMI) [Ratio] 30.5 kg/m2 30.5 k g/m2 HILDA ([facility]) Systolic blood pressure 127 mm[Hg] 127 mm[Hg] A THENA ([facility]) Systolic blood pressure 145 mm[Hg] 145 mm[Hg] [facility]) Body weight 3596.8 [oz_av] 3596.8 [oz_av] ATHEN A ([facility]) Diastolic blood pressure 82 mm[Hg] 82 mm[Hg] HILDA ([facility]) Diastolic blood pressure 81 mm[Hg] 81 mm[Hg] HILDA ([facility]) Body height 72 [in_i] 72 [in_i] HILDA ([facility]) Body mass index (BMI) [Ratio] 30.5 kg/m2 30.5 k g/m2 HILDA ([facility]) Systolic blood pressure 127 mm[Hg] 127 mm[Hg] A THENA ([facility]) Systolic blood pressure 145 mm[Hg] 145 mm[Hg] A THENA ([facility]) Body weight 3596.8 [oz_av] 3596.8 [oz_av] ATHEN A ([facility]) Diastolic blood pressure 82 mm[Hg] 82 mm[Hg] HILDA ([facility]) Diastolic blood pressure 81 mm[Hg] 81 mm[Hg] HILDA ([facility]) Body height 72 [in_i] 72 [in_i] HILDA ([facility]) Body mass index (BMI) [Ratio] 30.5 kg/m2 30.5 k g/m2 HILDA ([facility]) Systolic blood pressure 127 mm[Hg] 127 mm[Hg] A THENA ([facility]) Systolic blood pressure 145 mm[Hg] 145 mm[Hg] A THENA ([facility]) Body weight 3596.8 [oz_av] 3596.8 [oz_av] ATHEN A ([facility]) Diastolic blood pressure 82 mm[Hg] 82 mm[Hg] HILDA ([facility]) Diastolic blood pressure 81 mm[Hg] 81 mm[Hg] HILDA ([facility]) Body height 72 [in_i] 72 [in_i] HILDA ([facility]) Body mass index (BMI) [Ratio] 30.5 kg/m2 30.5 k g/m2 HILDA ([facility]) Systolic blood pressure 127 mm[Hg] 127 mm[Hg] A THENA ([facility]) Systolic blood pressure 145 mm[Hg] 145 mm[Hg] A THENA ([facility]) Body weight 3596.8 [oz_av] 3596.8 [oz_av] ATHEN A ([facility]) Diastolic blood pressure 82 mm[Hg] 82 mm[Hg] HILDA ([facility]) Diastolic blood pressure 81 mm[Hg] 81 mm[Hg] HILDA ([facility]) Body height 72 [in_i] 72 [in_i] HILDA ([facility]) Body mass index (BMI) [Ratio] 30.5 kg/m2 30.5 k g/m2 HILDA ([facility]) Systolic blood pressure 127 mm[Hg] 127 mm[Hg] A THENA ([facility]) Systolic blood pressure 145 mm[Hg] 145 mm[Hg] A THENA ([facility]) Body weight 3596.8 [oz_av] 3596.8 [oz_av] ATHEN A ([facility]) Diastolic blood pressure 82 mm[Hg] 82 mm[Hg] HILDA ([facility]) Diastolic blood pressure 81 mm[Hg] 81 mm[Hg] HILDA ([facility]) Body height 72 [in_i] 72 [in_i] HILDA ([facility]) Body mass index (BMI) [Ratio] 30.5 kg/m2 30.5 k g/m2 HILDA ([facility]) Systolic blood pressure 127 mm[Hg] 127 mm[Hg] A THENA ([facility]) Systolic blood pressure 145 mm[Hg] 145 mm[Hg] A THENA ([facility]) Body weight 3596.8 [oz_av] 3596.8 [oz_av] ATHEN A ([facility]) Diastolic blood pressure 82 mm[Hg] 82 mm[Hg] HILDA ([facility]) Diastolic blood pressure 81 mm[Hg] 81 mm[Hg] HILDA ([facility]) Body height 72 [in_i] 72 [in_i] HILDA ([facility]) Body mass index (BMI) [Ratio] 30.5 kg/m2 30.5 k g/m2 HILDA ([facility]) Systolic blood pressure 127 mm[Hg] 127 mm[Hg] A THENA ([facility]) Systolic blood pressure 145 mm[Hg] 145 mm[Hg] A THENA ([facility]) Body weight 3596.8 [oz_av] 3596.8 [oz_av] ATHEN A ([facility]) Diastolic blood pressure 82 mm[Hg] 82 mm[Hg] HILDA ([facility]) Diastolic blood pressure 81 mm[Hg] 81 mm[Hg] HILDA ([facility]) Body height 72 [in_i] 72 [in_i] HILDA ([facility]) Body mass index (BMI) [Ratio] 30.5 kg/m2 30.5 k g/m2 HILDA ([facility]) Systolic blood pressure 127 mm[Hg] 127 mm[Hg] A THENA ([facility]) Systolic blood pressure 145 mm[Hg] 145 mm[Hg] A THENA ([facility]) Body weight 3596.8 [oz_av] 3596.8 [oz_av] ATHEN A ([facility]) Diastolic blood pressure 82 mm[Hg] 82 mm[Hg] HILDA ([facility]) Diastolic blood pressure 81 mm[Hg] 81 mm[Hg] HILDA ([facility]) Body height 72 [in_i] 72 [in_i] HILDA ([facility]) Body mass index (BMI) [Ratio] 30.5 kg/m2 30.5 k g/m2 IHLDA ([facility]) Systolic blood pressure 127 mm[Hg] 127 mm[Hg] A THENA ([facility]) Systolic blood pressure 145 mm[Hg] 145 mm[Hg] A THENA ([facility]) Body weight 3596.8 [oz_av] 3596.8 [oz_av] ATHEN A ([facility]) Diastolic blood pressure 82 mm[Hg] 82 mm[Hg] HILDA ([facility]) Diastolic blood pressure 81 mm[Hg] 81 mm[Hg] HILDA ([facility]) Body height 72 [in_i] 72 [in_i] HILDA ([facility]) Body mass index (BMI) [Ratio] 30.5 kg/m2 30.5 k g/m2 HILDA ([facility]) Systolic blood pressure 127 mm[Hg] 127 mm[Hg] A THENA ([facility]) Systolic blood pressure 145 mm[Hg] 145 mm[Hg] [facility]) Body weight 3596.8 [oz_av] 3596.8 [oz_av] ATHEN A ([facility]) Diastolic blood pressure 82 mm[Hg] 82 mm[Hg] HILDA ([facility]) Diastolic blood pressure 81 mm[Hg] 81 mm[Hg] HILDA ([facility]) Body height 72 [in_i] 72 [in_i] HILDA ([facility]) Body mass index (BMI) [Ratio] 30.5 kg/m2 30.5 k g/m2 HILDA ([facility]) Systolic blood pressure 127 mm[Hg] 127 mm[Hg] A THENA ([facility]) Systolic blood pressure 145 mm[Hg] 145 mm[Hg] [facility]) Body weight 3596.8 [oz_av] 3596.8 [oz_av] ATHEN A ([facility]) Diastolic blood pressure 82 mm[Hg] 82 mm[Hg] HILDA ([facility]) Diastolic blood pressure 81 mm[Hg] 81 mm[Hg] HILDA ([facility]) Body height 72 [in_i] 72 [in_i] HILDA ([facility]) Body mass index (BMI) [Ratio] 30.5 kg/m2 30.5 k g/m2 HILDA ([facility]) Systolic blood pressure 127 mm[Hg] 127 mm[Hg] A THENA ([facility]) Systolic blood pressure 145 mm[Hg] 145 mm[Hg] A THENA ([facility]) Body weight 3596.8 [oz_av] 3596.8 [oz_av] ATHEN A ([facility]) Diastolic blood pressure 82 mm[Hg] 82 mm[Hg] HILDA ([facility]) Diastolic blood pressure 81 mm[Hg] 81 mm[Hg] HILDA ([facility]) Body height 72 [in_i] 72 [in_i] HILDA ([facility]) Body mass index (BMI) [Ratio] 30.5 kg/m2 30.5 k g/m2 HILDA ([facility]) Systolic blood pressure 127 mm[Hg] 127 mm[Hg] A THENA ([facility]) Systolic blood pressure 145 mm[Hg] 145 mm[Hg] [facility]) Body weight 3596.8 [oz_av] 3596.8 [oz_av] ATHEN A ([facility]) Diastolic blood pressure 82 mm[Hg] 82 mm[Hg] HILDA ([facility]) Diastolic blood pressure 81 mm[Hg] 81 mm[Hg] HILDA ([facility]) Body height 72 [in_i] 72 [in_i] HILDA ([facility]) Body mass index (BMI) [Ratio] 30.5 kg/m2 30.5 k g/m2 HILDA ([facility]) Systolic blood pressure 127 mm[Hg] 127 mm[Hg] A THENA ([facility]) Systolic blood pressure 145 mm[Hg] 145 mm[Hg] A THENA ([facility]) Body weight 3596.8 [oz_av] 3596.8 [oz_av] ATHEN A ([facility]) Diastolic blood pressure 82 mm[Hg] 82 mm[Hg] HILDA ([facility]) Diastolic blood pressure 81 mm[Hg] 81 mm[Hg] HILDA ([facility]) Body height 72 [in_i] 72 [in_i] HILDA ([facility]) Body mass index (BMI) [Ratio] 30.5 kg/m2 30.5 k g/m2 HILDA ([facility]) Systolic blood pressure 127 mm[Hg] 127 mm[Hg] A THENA ([facility]) Systolic blood pressure 145 mm[Hg] 145 mm[Hg] A THENA ([facility]) Body weight 3596.8 [oz_av] 3596.8 [oz_av] ATHEN A ([facility]) Diastolic blood pressure 82 mm[Hg] 82 mm[Hg] HILDA ([facility]) Diastolic blood pressure 81 mm[Hg] 81 mm[Hg] HILDA ([facility]) Body height 72 [in_i] 72 [in_i] HILDA ([facility]) Body mass index (BMI) [Ratio] 30.5 kg/m2 30.5 k g/m2 HILDA ([facility]) Systolic blood pressure 127 mm[Hg] 127 mm[Hg] [facility]) Systolic blood pressure 145 mm[Hg] 145 mm[Hg] [facility]) Body weight 3596.8 [oz_av] 3596.8 [oz_av] ATHEN A ([facility]) Diastolic blood pressure 82 mm[Hg] 82 mm[Hg] HILDA ([facility]) Diastolic blood pressure 81 mm[Hg] 81 mm[Hg] HILDA ([facility]) Body height 72 [in_i] 72 [in_i] HILDA ([facility]) Body mass index (BMI) [Ratio] 30.5 kg/m2 30.5 k g/m2 HILDA ([facility]) Systolic blood pressure 127 mm[Hg] 127 mm[Hg] A THENA ([facility]) Systolic blood pressure 145 mm[Hg] 145 mm[Hg] A THENA ([facility]) Body weight 3596.8 [oz_av] 3596.8 [oz_av] ATHEN A ([facility]) Respiratory rate 16 /min 16 /min MEDJUAN RAMON ( [facility]) Body weight 222.00 [lb_av] 222.00 [lb_av] CELESTINO T ([facility]) Body height 72 [in_i] 72 [in_i] RANGEL ([facility] 6'0" Body mass index (BMI) [Ratio] 30.1 kg/m2 30.1 k g/m2 MEDJUAN RAMON ([facility]) Heart rate 52 /min 52 /min MEDENT ([facility]) regular Systolic blood pressure--sitting 108 mm[Hg] 108 mm[Hg] MEDENT ([facility]) large cuff, Ra; 110/72 LA Diastolic blood pressure--sitting 68 mm[Hg] 68 mm[Hg] MEDENT ([facility]) large cuff, Ra; 110/72 LA Systolic blood pressure--supine 108 mm[Hg] 108 mm[Hg] MEDENT ([facility]) Ra Diastolic blood pressure--supine 68 mm[Hg] 68 mm[Hg] MEDENT ([facility]) Ra Diastolic blood pressure 81 mm[Hg] 81 mm[Hg] HILDA ([facility]) Body height 72 [in_i] 72 [in_i] SAYNER ([facility]) Body mass index (BMI) [Ratio] 30.2 kg/m2 30.2 k g/m2 HILDA ([facility]) Systolic blood pressure 120 mm[Hg] 120 mm[Hg] A [facility] ([facility]) Body weight 3568 [oz_av] 3568 [oz_av] HILDA ([facility]) Diastolic blood pressure 81 mm[Hg] 81 mm[Hg] HILDA ([facility]) Body height 72 [in_i] 72 [in_i] SAYNER ([facility]) Body mass index (BMI) [Ratio] 30.2 kg/m2 30.2 k g/m2 HILDA ([facility]) Systolic blood pressure 120 mm[Hg] 120 mm[Hg] A [facility] ([facility]) Body weight 3568 [oz_av] 3568 [oz_av] HILDA ([facility]) Diastolic blood pressure 81 mm[Hg] 81 mm[Hg] HILDA ([facility]) Body height 72 [in_i] 72 [in_i] HILDA ([facility]) Body mass index (BMI) [Ratio] 30.2 kg/m2 30.2 k g/m2 HILDA ([facility]) Systolic blood pressure 120 mm[Hg] 120 mm[Hg] A [facility] ([facility]) Body weight 3568 [oz_av] 3568 [oz_av] HILDA ([facility]) Diastolic blood pressure 81 mm[Hg] 81 mm[Hg] HILDA ([facility]) Body height 72 [in_i] 72 [in_i] HILDA ([facility]) Body mass index (BMI) [Ratio] 30.2 kg/m2 30.2 k g/m2 HILDA ([facility]) Systolic blood pressure 120 mm[Hg] 120 mm[Hg] [facility]) Body weight 3568 [oz_av] 3568 [oz_av] HILDA ([facility]) Diastolic blood pressure 81 mm[Hg] 81 mm[Hg] HILDA ([facility]) Body height 72 [in_i] 72 [in_i] HILDA ([facility]) Body mass index (BMI) [Ratio] 30.2 kg/m2 30.2 k g/m2 HILDA ([facility]) Systolic blood pressure 120 mm[Hg] 120 mm[Hg] A [facility] ([facility]) Body weight 3568 [oz_av] 3568 [oz_av] HILDA ([facility]) Diastolic blood pressure 81 mm[Hg] 81 mm[Hg] HILDA ([facility]) Body height 72 [in_i] 72 [in_i] HILDA ([facility]) Body mass index (BMI) [Ratio] 30.2 kg/m2 30.2 k g/m2 HILDA ([facility]) Systolic blood pressure 120 mm[Hg] 120 mm[Hg] A THENA ([facility]) Body weight 3568 [oz_av] 3568 [oz_av] HILDA ([facility]) Diastolic blood pressure 81 mm[Hg] 81 mm[Hg] HILDA ([facility]) Body height 72 [in_i] 72 [in_i] HILDA ([facility]) Body mass index (BMI) [Ratio] 30.2 kg/m2 30.2 k g/m2 HILDA ([facility]) Systolic blood pressure 120 mm[Hg] 120 mm[Hg] [facility]) Body weight 3568 [oz_av] 3568 [oz_av] HILDA ([facility]) Diastolic blood pressure 81 mm[Hg] 81 mm[Hg] HILDA ([facility]) Body height 72 [in_i] 72 [in_i] HILDA ([facility]) Body mass index (BMI) [Ratio] 30.2 kg/m2 30.2 k g/m2 HILDA ([facility]) Systolic blood pressure 120 mm[Hg] 120 mm[Hg] [facility]) Body weight 3568 [oz_av] 3568 [oz_av] HILDA ([facility]) Diastolic blood pressure 81 mm[Hg] 81 mm[Hg] HILDA ([facility]) Body height 72 [in_i] 72 [in_i] HILDA ([facility]) Body mass index (BMI) [Ratio] 30.2 kg/m2 30.2 k g/m2 HILDA ([facility]) Systolic blood pressure 120 mm[Hg] 120 mm[Hg] A [facility] ([facility]) Body weight 3568 [oz_av] 3568 [oz_av] HILDA ([facility]) Diastolic blood pressure 81 mm[Hg] 81 mm[Hg] HILDA ([facility]) Body height 72 [in_i] 72 [in_i] HILDA ([facility]) Body mass index (BMI) [Ratio] 30.2 kg/m2 30.2 k g/m2 HILDA ([facility]) Systolic blood pressure 120 mm[Hg] 120 mm[Hg] A THENA ([facility]) Body weight 3568 [oz_av] 3568 [oz_av] HILDA ([facility]) Diastolic blood pressure 81 mm[Hg] 81 mm[Hg] HILDA ([facility]) Body height 72 [in_i] 72 [in_i] HILDA ([facility]) Body mass index (BMI) [Ratio] 30.2 kg/m2 30.2 k g/m2 HILDA ([facility]) Systolic blood pressure 120 mm[Hg] 120 mm[Hg] [facility] Body weight 3568 [oz_av] 3568 [oz_av] H[facility]DA ([facility]) Diastolic blood pressure 81 mm[Hg] 81 mm[Hg] [facility] ([facility]) Body height 72 [in_i] 72 [in_i] [facility] ([facility]) Body mass index (BMI) [Ratio] 30.2 kg/m2 30.2 k g/m2 [facility] ([facility]) Systolic blood pressure 120 mm[Hg] 120 mm[Hg] [facility]) Body weight 3568 [oz_av] 3568 [oz_av] HILDA ([facility]) Diastolic blood pressure 81 mm[Hg] 81 mm[Hg] [facility]DA ([facility]) Body height 72 [in_i] 72 [in_i] [facility] ([facility]) Body mass index (BMI) [Ratio] 30.2 kg/m2 30.2 k g/m2 [facility] ([facility]) Systolic blood pressure 120 mm[Hg] 120 mm[Hg] A [facility] ([facility]) Body weight 3568 [oz_av] 3568 [oz_av] HILDA ([facility]) Diastolic blood pressure 81 mm[Hg] 81 mm[Hg] [facility] ([facility]) Body height 72 [in_i] 72 [in_i] [facility] ([facility]) Body mass index (BMI) [Ratio] 30.2 kg/m2 30.2 k g/m2 [facility] ([facility]) Systolic blood pressure 120 mm[Hg] 120 mm[Hg] A [facility] ([facility]) Body weight 3568 [oz_av] 3568 [oz_av] [facility]DA ([facility]) Diastolic blood pressure 81 mm[Hg] 81 mm[Hg] [facility] ([facility]) Body height 72 [in_i] 72 [in_i] [facility] ([facility]) Body mass index (BMI) [Ratio] 30.2 kg/m2 30.2 k g/m2 [facility] ([facility]) Systolic blood pressure 120 mm[Hg] 120 mm[Hg] [facility]) Body weight 3568 [oz_av] 3568 [oz_av] [facility] ([facility]) Diastolic blood pressure 81 mm[Hg] 81 mm[Hg] [facility] ([facility]) Body height 72 [in_i] 72 [in_i] [facility] ([facility]) Body mass index (BMI) [Ratio] 30.2 kg/m2 30.2 k g/m2 [facility] ([facility]) Systolic blood pressure 120 mm[Hg] 120 mm[Hg] [facility]) Body weight 3568 [oz_av] 3568 [oz_av] [facility] ([facility]) Diastolic blood pressure 81 mm[Hg] 81 mm[Hg] [facility] ([facility]) Body height 72 [in_i] 72 [in_i] [facility] ([facility]) Body mass index (BMI) [Ratio] 30.2 kg/m2 30.2 k g/m2 [facility] ([facility]) Systolic blood pressure 120 mm[Hg] 120 mm[Hg] A [facility] ([facility]) Body weight 3568 [oz_av] 3568 [oz_av] [facility] ([facility]) Diastolic blood pressure 81 mm[Hg] 81 mm[Hg] [facility] ([facility]) Body height 72 [in_i] 72 [in_i] [facility] ([facility]) Body mass index (BMI) [Ratio] 30.2 kg/m2 30.2 k g/m2 [facility] ([facility]) Systolic blood pressure 120 mm[Hg] 120 mm[Hg] A [facility] ([facility]) Body weight 3568 [oz_av] 3568 [oz_av] [facility]DA ([facility]) Diastolic blood pressure 81 mm[Hg] 81 mm[Hg] [facility] ([facility]) Body height 72 [in_i] 72 [in_i] [facility] ([facility]) Body mass index (BMI) [Ratio] 30.2 kg/m2 30.2 k g/m2 [facility] ([facility]) Systolic blood pressure 120 mm[Hg] 120 mm[Hg] [facility]) Body weight 3568 [oz_av] 3568 [oz_av] [facility] ([facility]) Diastolic blood pressure 81 mm[Hg] 81 mm[Hg] [facility] ([facility]) Body height 72 [in_i] 72 [in_i] [facility] ([facility]) Body mass index (BMI) [Ratio] 30.2 kg/m2 30.2 k g/m2 [facility] ([facility]) Systolic blood pressure 120 mm[Hg] 120 mm[Hg] [facility]) Body weight 3568 [oz_av] 3568 [oz_av] [facility] ([facility]) Diastolic blood pressure 81 mm[Hg] 81 mm[Hg] [facility] ([facility]) Body height 72 [in_i] 72 [in_i] [facility] ([facility]) Body mass index (BMI) [Ratio] 30.2 kg/m2 30.2 k g/m2 [facility] ([facility]) Systolic blood pressure 120 mm[Hg] 120 mm[Hg] A [facility] ([facility]) Body weight 3568 [oz_av] 3568 [oz_av] [facility] ([facility]) Diastolic blood pressure 81 mm[Hg] 81 mm[Hg] [facility] ([facility]) Body height 72 [in_i] 72 [in_i] [facility] ([facility]) Body mass index (BMI) [Ratio] 30.2 kg/m2 30.2 k g/m2 [facility] ([facility]) Systolic blood pressure 120 mm[Hg] 120 mm[Hg] A [facility] ([facility]) Body weight 3568 [oz_av] 3568 [oz_av] [facility] ([facility]) Diastolic blood pressure 81 mm[Hg] 81 mm[Hg] [facility] ([facility]) Body height 72 [in_i] 72 [in_i] [facility] ([facility]) Body mass index (BMI) [Ratio] 30.2 kg/m2 30.2 k g/m2 [facility] ([facility]) Systolic blood pressure 120 mm[Hg] 120 mm[Hg] [facility]) Body weight 3568 [oz_av] 3568 [oz_av] [facility] ([facility]) Diastolic blood pressure 81 mm[Hg] 81 mm[Hg] [facility] ([facility]) Body height 72 [in_i] 72 [in_i] [facility] ([facility]) Body mass index (BMI) [Ratio] 30.2 kg/m2 30.2 k g/m2 [facility] ([facility]) Systolic blood pressure 120 mm[Hg] 120 mm[Hg] [facility]) Body weight 3568 [oz_av] 3568 [oz_av] [facility] ([facility]) Diastolic blood pressure 81 mm[Hg] 81 mm[Hg] [facility] ([facility]) Body height 72 [in_i] 72 [in_i] [facility] ([facility]) Body mass index (BMI) [Ratio] 30.2 kg/m2 30.2 k g/m2 [facility] ([facility]) Systolic blood pressure 120 mm[Hg] 120 mm[Hg] A [facility] ([facility]) Body weight 3568 [oz_av] 3568 [oz_av] [facility] ([facility]) Diastolic blood pressure 81 mm[Hg] 81 mm[Hg] [facility] ([facility]) Body height 72 [in_i] 72 [in_i] [facility] ([facility]) Body mass index (BMI) [Ratio] 30.2 kg/m2 30.2 k g/m2 [facility] ([facility]) Systolic blood pressure 120 mm[Hg] 120 mm[Hg] A [facility] ([facility]) Body weight 3568 [oz_av] 3568 [oz_av] [facility] ([facility]) Diastolic blood pressure 81 mm[Hg] 81 mm[Hg] [facility] ([facility]) Body height 72 [in_i] 72 [in_i] [facility] ([facility]) Body mass index (BMI) [Ratio] 30.2 kg/m2 30.2 k g/m2 [facility] ([facility]) Systolic blood pressure 120 mm[Hg] 120 mm[Hg] [facility]) Body weight 3568 [oz_av] 3568 [oz_av] [facility] ([facility]) Diastolic blood pressure 81 mm[Hg] 81 mm[Hg] [facility] ([facility]) Body height 72 [in_i] 72 [in_i] [facility] ([facility]) Body mass index (BMI) [Ratio] 30.2 kg/m2 30.2 k g/m2 [facility] ([facility]) Systolic blood pressure 120 mm[Hg] 120 mm[Hg] [facility]) Body weight 3568 [oz_av] 3568 [oz_av] [facility] ([facility]) Diastolic blood pressure 81 mm[Hg] 81 mm[Hg] [facility] ([facility]) Body height 72 [in_i] 72 [in_i] [facility] ([facility]) Body mass index (BMI) [Ratio] 30.2 kg/m2 30.2 k g/m2 [facility] ([facility]) Systolic blood pressure 120 mm[Hg] 120 mm[Hg] A [facility] ([facility]) Body weight 3568 [oz_av] 3568 [oz_av] [facility] ([facility]) Diastolic blood pressure 81 mm[Hg] 81 mm[Hg] [facility] ([facility]) Body height 72 [in_i] 72 [in_i] [facility] ([facility]) Body mass index (BMI) [Ratio] 30.2 kg/m2 30.2 k g/m2 [facility] ([facility]) Systolic blood pressure 120 mm[Hg] 120 mm[Hg] A [facility] ([facility]) Body weight 3568 [oz_av] 3568 [oz_av] [facility] ([facility]) Diastolic blood pressure 81 mm[Hg] 81 mm[Hg] [facility] ([facility]) Body height 72 [in_i] 72 [in_i] [facility] ([facility]) Body mass index (BMI) [Ratio] 30.2 kg/m2 30.2 k g/m2 [facility] ([facility]) Systolic blood pressure 120 mm[Hg] 120 mm[Hg] [facility]) Body weight 3568 [oz_av] 3568 [oz_av] [facility] ([facility]) Diastolic blood pressure 81 mm[Hg] 81 mm[Hg] [facility] ([facility]) Body height 72 [in_i] 72 [in_i] [facility] ([facility]) Body mass index (BMI) [Ratio] 30.2 kg/m2 30.2 k g/m2 [facility] ([facility]) Systolic blood pressure 120 mm[Hg] 120 mm[Hg] A [facility] ([facility]) Body weight 3568 [oz_av] 3568 [oz_av] [facility] ([facility]) Diastolic blood pressure 81 mm[Hg] 81 mm[Hg] [facility] ([facility]) Body height 72 [in_i] 72 [in_i] [facility] ([facility]) Body mass index (BMI) [Ratio] 30.2 kg/m2 30.2 k g/m2 [facility] ([facility]) Systolic blood pressure 120 mm[Hg] 120 mm[Hg] A [facility] ([facility]) Body weight 3568 [oz_av] 3568 [oz_av] [facility] ([facility]) Diastolic blood pressure 86 mm[Hg] 86 mm[Hg] [facility] ([facility]) Body height 72 [in_i] 72 [in_i] [facility] ([facility]) Body mass index (BMI) [Ratio] 30.4 kg/m2 30.4 k g/m2 [facility] ([facility]) Systolic blood pressure 130 mm[Hg] 130 mm[Hg] A [facility] ([facility]) Body weight 3587.2 [oz_av] 3587.2 [oz_av] ATHEN A ([facility]) Diastolic blood pressure 86 mm[Hg] 86 mm[Hg] [facility] ([facility]) Body height 72 [in_i] 72 [in_i] [facility] ([facility]) Body mass index (BMI) [Ratio] 30.4 kg/m2 30.4 k g/m2 [facility] ([facility]) Systolic blood pressure 130 mm[Hg] 130 mm[Hg] [facility]) Body weight 3587.2 [oz_av] 3587.2 [oz_av] ATHEN A ([facility]) Diastolic blood pressure 86 mm[Hg] 86 mm[Hg] [facility] ([facility]) Body height 72 [in_i] 72 [in_i] [facility] ([facility]) Body mass index (BMI) [Ratio] 30.4 kg/m2 30.4 k g/m2 [facility] ([facility]) Systolic blood pressure 130 mm[Hg] 130 mm[Hg] A [facility] ([facility]) Body weight 3587.2 [oz_av] 3587.2 [oz_av] ATHEN A ([facility]) Diastolic blood pressure 86 mm[Hg] 86 mm[Hg] [facility] ([facility]) Body height 72 [in_i] 72 [in_i] [facility] ([facility]) Body mass index (BMI) [Ratio] 30.4 kg/m2 30.4 k g/m2 [facility] ([facility]) Systolic blood pressure 130 mm[Hg] 130 mm[Hg] A [facility] ([facility]) Body weight 3587.2 [oz_av] 3587.2 [oz_av] ATHEN A ([facility]) Diastolic blood pressure 86 mm[Hg] 86 mm[Hg] [facility] ([facility]) Body height 72 [in_i] 72 [in_i] [facility] ([facility]) Body mass index (BMI) [Ratio] 30.4 kg/m2 30.4 k g/m2 [facility] ([facility]) Systolic blood pressure 130 mm[Hg] 130 mm[Hg] A [facility] ([facility]) Body weight 3587.2 [oz_av] 3587.2 [oz_av] ATHEN A ([facility]) Diastolic blood pressure 86 mm[Hg] 86 mm[Hg] [facility] ([facility]) Body height 72 [in_i] 72 [in_i] [facility] ([facility]) Body mass index (BMI) [Ratio] 30.4 kg/m2 30.4 k g/m2 [facility] ([facility]) Systolic blood pressure 130 mm[Hg] 130 mm[Hg] A [facility] ([facility]) Body weight 3587.2 [oz_av] 3587.2 [oz_av] ATHEN A ([facility]) Diastolic blood pressure 86 mm[Hg] 86 mm[Hg] [facility] ([facility]) Body height 72 [in_i] 72 [in_i] [facility] ([facility]) Body mass index (BMI) [Ratio] 30.4 kg/m2 30.4 k g/m2 [facility] ([facility]) Systolic blood pressure 130 mm[Hg] 130 mm[Hg] [facility]) Body weight 3587.2 [oz_av] 3587.2 [oz_av] ATHEN A ([facility]) Diastolic blood pressure 86 mm[Hg] 86 mm[Hg] [facility] ([facility]) Body height 72 [in_i] 72 [in_i] [facility] ([facility]) Body mass index (BMI) [Ratio] 30.4 kg/m2 30.4 k g/m2 [facility] ([facility]) Systolic blood pressure 130 mm[Hg] 130 mm[Hg] A [facility] ([facility]) Body weight 3587.2 [oz_av] 3587.2 [oz_av] ATHEN A ([facility]) Diastolic blood pressure 86 mm[Hg] 86 mm[Hg] [facility] ([facility]) Body height 72 [in_i] 72 [in_i] [facility] ([facility]) Body mass index (BMI) [Ratio] 30.4 kg/m2 30.4 k g/m2 [facility] ([facility]) Systolic blood pressure 130 mm[Hg] 130 mm[Hg] A [facility] ([facility]) Body weight 3587.2 [oz_av] 3587.2 [oz_av] ATHEN A ([facility]) Diastolic blood pressure 86 mm[Hg] 86 mm[Hg] [facility] ([facility]) Body height 72 [in_i] 72 [in_i] [facility] ([facility]) Body mass index (BMI) [Ratio] 30.4 kg/m2 30.4 k g/m2 [facility] ([facility]) Systolic blood pressure 130 mm[Hg] 130 mm[Hg] A [facility] ([facility]) Body weight 3587.2 [oz_av] 3587.2 [oz_av] ATHEN A ([facility]) Diastolic blood pressure 86 mm[Hg] 86 mm[Hg] [facility] ([facility]) Body height 72 [in_i] 72 [in_i] [facility] ([facility]) Body mass index (BMI) [Ratio] 30.4 kg/m2 30.4 k g/m2 [facility] ([facility]) Systolic blood pressure 130 mm[Hg] 130 mm[Hg] A [facility] ([facility]) Body weight 3587.2 [oz_av] 3587.2 [oz_av] ATHEN A ([facility]) Diastolic blood pressure 86 mm[Hg] 86 mm[Hg] [facility] ([facility]) Body height 72 [in_i] 72 [in_i] [facility] ([facility]) Body mass index (BMI) [Ratio] 30.4 kg/m2 30.4 k g/m2 [facility] ([facility]) Systolic blood pressure 130 mm[Hg] 130 mm[Hg] A [facility] ([facility]) Body weight 3587.2 [oz_av] 3587.2 [oz_av] ATHEN A ([facility]) Diastolic blood pressure 86 mm[Hg] 86 mm[Hg] [facility] ([facility]) Body height 72 [in_i] 72 [in_i] [facility] ([facility]) Body mass index (BMI) [Ratio] 30.4 kg/m2 30.4 k g/m2 [facility] ([facility]) Systolic blood pressure 130 mm[Hg] 130 mm[Hg] A [facility] ([facility]) Body weight 3587.2 [oz_av] 3587.2 [oz_av] ATHEN A ([facility]) Diastolic blood pressure 86 mm[Hg] 86 mm[Hg] [facility] ([facility]) Body height 72 [in_i] 72 [in_i] [facility] ([facility]) Body mass index (BMI) [Ratio] 30.4 kg/m2 30.4 k g/m2 [facility] ([facility]) Systolic blood pressure 130 mm[Hg] 130 mm[Hg] A [facility] ([facility]) Body weight 3587.2 [oz_av] 3587.2 [oz_av] ATHEN A ([facility]) Diastolic blood pressure 86 mm[Hg] 86 mm[Hg] [facility] ([facility]) Body height 72 [in_i] 72 [in_i] [facility] ([facility]) Body mass index (BMI) [Ratio] 30.4 kg/m2 30.4 k g/m2 [facility] ([facility]) Systolic blood pressure 130 mm[Hg] 130 mm[Hg] A [facility] ([facility]) Body weight 3587.2 [oz_av] 3587.2 [oz_av] ATHEN A ([facility]) Diastolic blood pressure 86 mm[Hg] 86 mm[Hg] [facility] ([facility]) Body height 72 [in_i] 72 [in_i] [facility] ([facility]) Body mass index (BMI) [Ratio] 30.4 kg/m2 30.4 k g/m2 [facility] ([facility]) Systolic blood pressure 130 mm[Hg] 130 mm[Hg] A [facility] ([facility]) Body weight 3587.2 [oz_av] 3587.2 [oz_av] ATHEN A ([facility]) Diastolic blood pressure 86 mm[Hg] 86 mm[Hg] [facility] ([facility]) Body height 72 [in_i] 72 [in_i] [facility] ([facility]) Body mass index (BMI) [Ratio] 30.4 kg/m2 30.4 k g/m2 [facility] ([facility]) Systolic blood pressure 130 mm[Hg] 130 mm[Hg] A [facility] ([facility]) Body weight 3587.2 [oz_av] 3587.2 [oz_av] ATHEN A ([facility]) Diastolic blood pressure 86 mm[Hg] 86 mm[Hg] [facility] ([facility]) Body height 72 [in_i] 72 [in_i] [facility] ([facility]) Body mass index (BMI) [Ratio] 30.4 kg/m2 30.4 k g/m2 [facility] ([facility]) Systolic blood pressure 130 mm[Hg] 130 mm[Hg] A [facility] ([facility]) Body weight 3587.2 [oz_av] 3587.2 [oz_av] ATHEN A ([facility]) Diastolic blood pressure 86 mm[Hg] 86 mm[Hg] [facility] ([facility]) Body height 72 [in_i] 72 [in_i] [facility] ([facility]) Body mass index (BMI) [Ratio] 30.4 kg/m2 30.4 k g/m2 [facility] ([facility]) Systolic blood pressure 130 mm[Hg] 130 mm[Hg] [facility] Body weight 3587.2 [oz_av] 3587.2 [oz_av] ATHEN A ([facility]) Diastolic blood pressure 86 mm[Hg] 86 mm[Hg] [facility] ([facility]) Body height 72 [in_i] 72 [in_i] [facility] ([facility]) Body mass index (BMI) [Ratio] 30.4 kg/m2 30.4 k g/m2 [facility] ([facility]) Systolic blood pressure 130 mm[Hg] 130 mm[Hg] A [facility] ([facility]) Body weight 3587.2 [oz_av] 3587.2 [oz_av] ATHEN A ([facility]) Diastolic blood pressure 86 mm[Hg] 86 mm[Hg] [facility] ([facility]) Body height 72 [in_i] 72 [in_i] [facility] ([facility]) Body mass index (BMI) [Ratio] 30.4 kg/m2 30.4 k g/m2 [facility] ([facility]) Systolic blood pressure 130 mm[Hg] 130 mm[Hg] [facility]) Body weight 3587.2 [oz_av] 3587.2 [oz_av] ATHEN A ([facility]) Diastolic blood pressure 86 mm[Hg] 86 mm[Hg] [facility] ([facility]) Body height 72 [in_i] 72 [in_i] [facility] ([facility]) Body mass index (BMI) [Ratio] 30.4 kg/m2 30.4 k g/m2 [facility] ([facility]) Systolic blood pressure 130 mm[Hg] 130 mm[Hg] [facility]) Body weight 3587.2 [oz_av] 3587.2 [oz_av] ATHEN A ([facility]) Diastolic blood pressure 86 mm[Hg] 86 mm[Hg] [facility] ([facility]) Body height 72 [in_i] 72 [in_i] [facility] ([facility]) Body mass index (BMI) [Ratio] 30.4 kg/m2 30.4 k g/m2 [facility] ([facility]) Systolic blood pressure 130 mm[Hg] 130 mm[Hg] A [facility] ([facility]) Body weight 3587.2 [oz_av] 3587.2 [oz_av] ATHEN A ([facility]) Diastolic blood pressure 86 mm[Hg] 86 mm[Hg] [facility]DA ([facility]) Body height 72 [in_i] 72 [in_i] [facility] ([facility]) Body mass index (BMI) [Ratio] 30.4 kg/m2 30.4 k g/m2 [facility] ([facility]) Systolic blood pressure 130 mm[Hg] 130 mm[Hg] [facility]) Body weight 3587.2 [oz_av] 3587.2 [oz_av] ATHEN A ([facility]) Diastolic blood pressure 86 mm[Hg] 86 mm[Hg] [facility]DA ([facility]) Body height 72 [in_i] 72 [in_i] [facility] ([facility]) Body mass index (BMI) [Ratio] 30.4 kg/m2 30.4 k g/m2 [facility] ([facility]) Systolic blood pressure 130 mm[Hg] 130 mm[Hg] A [facility] ([facility]) Body weight 3587.2 [oz_av] 3587.2 [oz_av] ATHEN A ([facility]) Diastolic blood pressure 86 mm[Hg] 86 mm[Hg] [facility] ([facility]) Body height 72 [in_i] 72 [in_i] [facility] ([facility]) Body mass index (BMI) [Ratio] 30.4 kg/m2 30.4 k g/m2 [facility] ([facility]) Systolic blood pressure 130 mm[Hg] 130 mm[Hg] [facility] Body weight 3587.2 [oz_av] 3587.2 [oz_av] ATHEN A ([facility]) Diastolic blood pressure 86 mm[Hg] 86 mm[Hg] [facility]DA ([facility]) Body height 72 [in_i] 72 [in_i] [facility] ([facility]) Body mass index (BMI) [Ratio] 30.4 kg/m2 30.4 k g/m2 [facility] ([facility]) Systolic blood pressure 130 mm[Hg] 130 mm[Hg] A [facility] ([facility]) Body weight 3587.2 [oz_av] 3587.2 [oz_av] ATHEN A ([facility]) Diastolic blood pressure 86 mm[Hg] 86 mm[Hg] [facility]DA ([facility]) Body height 72 [in_i] 72 [in_i] [facility] ([facility]) Body mass index (BMI) [Ratio] 30.4 kg/m2 30.4 k g/m2 [facility] ([facility]) Systolic blood pressure 130 mm[Hg] 130 mm[Hg] A THENA ([facility]) Body weight 3587.2 [oz_av] 3587.2 [oz_av] ATHEN A ([facility]) Diastolic blood pressure 86 mm[Hg] 86 mm[Hg] [facility]DA ([facility]) Body height 72 [in_i] 72 [in_i] [facility] ([facility]) Body mass index (BMI) [Ratio] 30.4 kg/m2 30.4 k g/m2 [facility] ([facility]) Systolic blood pressure 130 mm[Hg] 130 mm[Hg] [facility] Body weight 3587.2 [oz_av] 3587.2 [oz_av] ATHEN A ([facility]) Diastolic blood pressure 86 mm[Hg] 86 mm[Hg] HILDA ([facility]) Body height 72 [in_i] 72 [in_i] [facility] ([facility]) Body mass index (BMI) [Ratio] 30.4 kg/m2 30.4 k g/m2 [facility] ([facility]) Systolic blood pressure 130 mm[Hg] 130 mm[Hg] [facility]) Body weight 3587.2 [oz_av] 3587.2 [oz_av] ATHEN A ([facility]) Diastolic blood pressure 86 mm[Hg] 86 mm[Hg] HILDA ([facility]) Body height 72 [in_i] 72 [in_i] [facility]DA ([facility]) Body mass index (BMI) [Ratio] 30.4 kg/m2 30.4 k g/m2 [facility] ([facility]) Systolic blood pressure 130 mm[Hg] 130 mm[Hg] [facility] Body weight 3587.2 [oz_av] 3587.2 [oz_av] ATHEN A ([facility]) Diastolic blood pressure 86 mm[Hg] 86 mm[Hg] HILDA ([facility]) Body height 72 [in_i] 72 [in_i] [facility]DA ([facility]) Body mass index (BMI) [Ratio] 30.4 kg/m2 30.4 k g/m2 [facility] ([facility]) Systolic blood pressure 130 mm[Hg] 130 mm[Hg] A THENA ([facility]) Body weight 3587.2 [oz_av] 3587.2 [oz_av] ATHEN A ([facility]) Diastolic blood pressure 86 mm[Hg] 86 mm[Hg] H[facility]DA ([facility]) Body height 72 [in_i] 72 [in_i] [facility]DA ([facility]) Body mass index (BMI) [Ratio] 30.4 kg/m2 30.4 k g/m2 [facility] ([facility]) Systolic blood pressure 130 mm[Hg] 130 mm[Hg] A [facility] ([facility]) Body weight 3587.2 [oz_av] 3587.2 [oz_av] ATHEN A ([facility]) Diastolic blood pressure 85 mm[Hg] 85 mm[Hg] [facility]DA ([facility]) Body height 72 [in_i] 72 [in_i] [facility] ([facility]) Body mass index (BMI) [Ratio] 30.2 kg/m2 30.2 k g/m2 [facility] ([facility]) Systolic blood pressure 130 mm[Hg] 130 mm[Hg] A [facility] ([facility]) Body weight 3558 [oz_av] 3558 [oz_av] HILDA ([facility]) Diastolic blood pressure 85 mm[Hg] 85 mm[Hg] HILDA ([facility]) Body height 72 [in_i] 72 [in_i] [facility]DA ([facility]) Body mass index (BMI) [Ratio] 30.2 kg/m2 30.2 k g/m2 [facility] ([facility]) Systolic blood pressure 130 mm[Hg] 130 mm[Hg] A [facility] ([facility]) Body weight 3558 [oz_av] 3558 [oz_av] HILDA ([facility]) Diastolic blood pressure 85 mm[Hg] 85 mm[Hg] H[facility]DA ([facility]) Body height 72 [in_i] 72 [in_i] [facility] ([facility]) Body mass index (BMI) [Ratio] 30.2 kg/m2 30.2 k g/m2 [facility] ([facility]) Systolic blood pressure 130 mm[Hg] 130 mm[Hg] [facility] Body weight 3558 [oz_av] 3558 [oz_av] HILDA ([facility]) Body height 72 [in_i] 72 [in_i] [facility]DA ([facility]) Body mass index (BMI) [Ratio] 30.2 kg/m2 30.2 k g/m2 [facility] ([facility]) Systolic blood pressure 130 mm[Hg] 130 mm[Hg] A [facility] Body weight 3558 [oz_av] 3558 [oz_av] [facility] ([facility]) Diastolic blood pressure 85 mm[Hg] 85 mm[Hg] [facility] ([facility]) Diastolic blood pressure 85 mm[Hg] 85 mm[Hg] [facility] ([facility]) Body height 72 [in_i] 72 [in_i] [facility] ([facility]) Body mass index (BMI) [Ratio] 30.2 kg/m2 30.2 k g/m2 [facility] ([facility]) Systolic blood pressure 130 mm[Hg] 130 mm[Hg] A [facility] ([facility]) Body weight 3558 [oz_av] 3558 [oz_av] [facility] ([facility]) Diastolic blood pressure 85 mm[Hg] 85 mm[Hg] [facility] ([facility]) Body height 72 [in_i] 72 [in_i] [facility] ([facility]) Body mass index (BMI) [Ratio] 30.2 kg/m2 30.2 k g/m2 [facility] ([facility]) Systolic blood pressure 130 mm[Hg] 130 mm[Hg] A [facility] ([facility]) Body weight 3558 [oz_av] 3558 [oz_av] [facility] ([facility]) Diastolic blood pressure 85 mm[Hg] 85 mm[Hg] [facility] ([facility]) Body height 72 [in_i] 72 [in_i] [facility] ([facility]) Body mass index (BMI) [Ratio] 30.2 kg/m2 30.2 k g/m2 [facility] ([facility]) Systolic blood pressure 130 mm[Hg] 130 mm[Hg] A [facility] ([facility]) Body weight 3558 [oz_av] 3558 [oz_av] [facility] ([facility]) Diastolic blood pressure 85 mm[Hg] 85 mm[Hg] [facility] ([facility]) Body height 72 [in_i] 72 [in_i] [facility] ([facility]) Body mass index (BMI) [Ratio] 30.2 kg/m2 30.2 k g/m2 [facility] ([facility]) Systolic blood pressure 130 mm[Hg] 130 mm[Hg] [facility]) Body weight 3558 [oz_av] 3558 [oz_av] [facility] ([facility]) Diastolic blood pressure 85 mm[Hg] 85 mm[Hg] [facility] ([facility]) Body height 72 [in_i] 72 [in_i] [facility] ([facility]) Body mass index (BMI) [Ratio] 30.2 kg/m2 30.2 k g/m2 [facility] ([facility]) Systolic blood pressure 130 mm[Hg] 130 mm[Hg] A [facility] ([facility]) Body weight 3558 [oz_av] 3558 [oz_av] [facility] ([facility]) Diastolic blood pressure 85 mm[Hg] 85 mm[Hg] [facility] ([facility]) Body height 72 [in_i] 72 [in_i] [facility] ([facility]) Body mass index (BMI) [Ratio] 30.2 kg/m2 30.2 k g/m2 [facility] ([facility]) Systolic blood pressure 130 mm[Hg] 130 mm[Hg] A [facility] ([facility]) Body weight 3558 [oz_av] 3558 [oz_av] [facility] ([facility]) Diastolic blood pressure 85 mm[Hg] 85 mm[Hg] [facility] ([facility]) Body height 72 [in_i] 72 [in_i] [facility] ([facility]) Body mass index (BMI) [Ratio] 30.2 kg/m2 30.2 k g/m2 [facility] ([facility]) Systolic blood pressure 130 mm[Hg] 130 mm[Hg] A [facility] ([facility]) Body weight 3558 [oz_av] 3558 [oz_av] [facility] ([facility]) Diastolic blood pressure 85 mm[Hg] 85 mm[Hg] [facility] ([facility]) Body height 72 [in_i] 72 [in_i] [facility] ([facility]) Body mass index (BMI) [Ratio] 30.2 kg/m2 30.2 k g/m2 [facility] ([facility]) Systolic blood pressure 130 mm[Hg] 130 mm[Hg] A [facility] ([facility]) Body weight 3558 [oz_av] 3558 [oz_av] [facility] ([facility]) Diastolic blood pressure 85 mm[Hg] 85 mm[Hg] [facility] ([facility]) Body height 72 [in_i] 72 [in_i] [facility] ([facility]) Body mass index (BMI) [Ratio] 30.2 kg/m2 30.2 k g/m2 [facility] ([facility]) Systolic blood pressure 130 mm[Hg] 130 mm[Hg] A [facility] ([facility]) Body weight 3558 [oz_av] 3558 [oz_av] [facility] ([facility]) Diastolic blood pressure 85 mm[Hg] 85 mm[Hg] [facility] ([facility]) Body height 72 [in_i] 72 [in_i] [facility] ([facility]) Body mass index (BMI) [Ratio] 30.2 kg/m2 30.2 k g/m2 [facility] ([facility]) Systolic blood pressure 130 mm[Hg] 130 mm[Hg] A [facility] ([facility]) Body weight 3558 [oz_av] 3558 [oz_av] [facility] ([facility]) Diastolic blood pressure 85 mm[Hg] 85 mm[Hg] [facility] ([facility]) Body height 72 [in_i] 72 [in_i] [facility] ([facility]) Body mass index (BMI) [Ratio] 30.2 kg/m2 30.2 k g/m2 [facility] ([facility]) Systolic blood pressure 130 mm[Hg] 130 mm[Hg] A [facility] ([facility]) Body weight 3558 [oz_av] 3558 [oz_av] [facility] ([facility]) Diastolic blood pressure 85 mm[Hg] 85 mm[Hg] [facility] ([facility]) Body height 72 [in_i] 72 [in_i] [facility] ([facility]) Body mass index (BMI) [Ratio] 30.2 kg/m2 30.2 k g/m2 [facility] ([facility]) Systolic blood pressure 130 mm[Hg] 130 mm[Hg] A [facility] ([facility]) Body weight 3558 [oz_av] 3558 [oz_av] [facility] ([facility]) Diastolic blood pressure 85 mm[Hg] 85 mm[Hg] [facility] ([facility]) Body height 72 [in_i] 72 [in_i] [facility] ([facility]) Body mass index (BMI) [Ratio] 30.2 kg/m2 30.2 k g/m2 [facility] ([facility]) Systolic blood pressure 130 mm[Hg] 130 mm[Hg] A [facility] ([facility]) Body weight 3558 [oz_av] 3558 [oz_av] [facility] ([facility]) Diastolic blood pressure 85 mm[Hg] 85 mm[Hg] [facility] ([facility]) Body height 72 [in_i] 72 [in_i] [facility] ([facility]) Body mass index (BMI) [Ratio] 30.2 kg/m2 30.2 k g/m2 [facility] ([facility]) Systolic blood pressure 130 mm[Hg] 130 mm[Hg] A [facility] ([facility]) Body weight 3558 [oz_av] 3558 [oz_av] [facility] ([facility]) Diastolic blood pressure 85 mm[Hg] 85 mm[Hg] [facility] ([facility]) Body height 72 [in_i] 72 [in_i] [facility] ([facility]) Body mass index (BMI) [Ratio] 30.2 kg/m2 30.2 k g/m2 [facility] ([facility]) Systolic blood pressure 130 mm[Hg] 130 mm[Hg] A [facility] ([facility]) Body weight 3558 [oz_av] 3558 [oz_av] [facility] ([facility]) Diastolic blood pressure 85 mm[Hg] 85 mm[Hg] [facility] ([facility]) Body height 72 [in_i] 72 [in_i] [facility] ([facility]) Body mass index (BMI) [Ratio] 30.2 kg/m2 30.2 k g/m2 [facility] ([facility]) Systolic blood pressure 130 mm[Hg] 130 mm[Hg] A [facility] ([facility]) Body weight 3558 [oz_av] 3558 [oz_av] [facility] ([facility]) Diastolic blood pressure 85 mm[Hg] 85 mm[Hg] [facility] ([facility]) Body height 72 [in_i] 72 [in_i] [facility] ([facility]) Body mass index (BMI) [Ratio] 30.2 kg/m2 30.2 k g/m2 [facility] ([facility]) Systolic blood pressure 130 mm[Hg] 130 mm[Hg] A [facility] ([facility]) Body weight 3558 [oz_av] 3558 [oz_av] [facility] ([facility]) Diastolic blood pressure 85 mm[Hg] 85 mm[Hg] [facility] ([facility]) Body height 72 [in_i] 72 [in_i] [facility] ([facility]) Body mass index (BMI) [Ratio] 30.2 kg/m2 30.2 k g/m2 [facility] ([facility]) Systolic blood pressure 130 mm[Hg] 130 mm[Hg] A [facility] ([facility]) Body weight 3558 [oz_av] 3558 [oz_av] [facility] ([facility]) Diastolic blood pressure 85 mm[Hg] 85 mm[Hg] [facility] ([facility]) Body height 72 [in_i] 72 [in_i] [facility] ([facility]) Body mass index (BMI) [Ratio] 30.2 kg/m2 30.2 k g/m2 [facility] ([facility]) Systolic blood pressure 130 mm[Hg] 130 mm[Hg] A [facility] ([facility]) Body weight 3558 [oz_av] 3558 [oz_av] [facility] ([facility]) Diastolic blood pressure 85 mm[Hg] 85 mm[Hg] [facility] ([facility]) Body height 72 [in_i] 72 [in_i] [facility] ([facility]) Body mass index (BMI) [Ratio] 30.2 kg/m2 30.2 k g/m2 [facility] ([facility]) Systolic blood pressure 130 mm[Hg] 130 mm[Hg] A [facility] ([facility]) Body weight 3558 [oz_av] 3558 [oz_av] [facility] ([facility]) Body weight 3558 [oz_av] 3558 [oz_av] [facility] ([facility]) Diastolic blood pressure 85 mm[Hg] 85 mm[Hg] [facility] ([facility]) Body height 72 [in_i] 72 [in_i] [facility] ([facility]) Body mass index (BMI) [Ratio] 30.2 kg/m2 30.2 k g/m2 [facility] ([facility]) Systolic blood pressure 130 mm[Hg] 130 mm[Hg] [facility]) Diastolic blood pressure 85 mm[Hg] 85 mm[Hg] [facility] ([facility]) Body height 72 [in_i] 72 [in_i] [facility] ([facility]) Body mass index (BMI) [Ratio] 30.2 kg/m2 30.2 k g/m2 [facility] ([facility]) Systolic blood pressure 130 mm[Hg] 130 mm[Hg] A [facility]) Body weight 3558 [oz_av] 3558 [oz_av] [facility] ([facility]) Diastolic blood pressure 85 mm[Hg] 85 mm[Hg] [facility] ([facility]) Body height 72 [in_i] 72 [in_i] [facility] ([facility]) Body mass index (BMI) [Ratio] 30.2 kg/m2 30.2 k g/m2 [facility] ([facility]) Systolic blood pressure 130 mm[Hg] 130 mm[Hg] A [facility] ([facility]) Body weight 3558 [oz_av] 3558 [oz_av] [facility] ([facility]) Diastolic blood pressure 85 mm[Hg] 85 mm[Hg] [facility] ([facility]) Body height 72 [in_i] 72 [in_i] [facility] ([facility]) Body mass index (BMI) [Ratio] 30.2 kg/m2 30.2 k g/m2 [facility] ([facility]) Systolic blood pressure 130 mm[Hg] 130 mm[Hg] A [facility] ([facility]) Body weight 3558 [oz_av] 3558 [oz_av] [facility] ([facility]) Diastolic blood pressure 85 mm[Hg] 85 mm[Hg] [facility] ([facility]) Body height 72 [in_i] 72 [in_i] [facility] ([facility]) Body mass index (BMI) [Ratio] 30.2 kg/m2 30.2 k g/m2 [facility] ([facility]) Systolic blood pressure 130 mm[Hg] 130 mm[Hg] A [facility] ([facility]) Body weight 3558 [oz_av] 3558 [oz_av] [facility] ([facility]) Diastolic blood pressure 85 mm[Hg] 85 mm[Hg] [facility] ([facility]) Body height 72 [in_i] 72 [in_i] [facility] ([facility]) Body mass index (BMI) [Ratio] 30.2 kg/m2 30.2 k g/m2 [facility] ([facility]) Systolic blood pressure 130 mm[Hg] 130 mm[Hg] A [facility] ([facility]) Body weight 3558 [oz_av] 3558 [oz_av] [facility] ([facility]) Diastolic blood pressure 85 mm[Hg] 85 mm[Hg] [facility] ([facility]) Body height 72 [in_i] 72 [in_i] [facility] ([facility]) Body mass index (BMI) [Ratio] 30.2 kg/m2 30.2 k g/m2 [facility] ([facility]) Systolic blood pressure 130 mm[Hg] 130 mm[Hg] A [facility] ([facility]) Body weight 3558 [oz_av] 3558 [oz_av] [facility] ([facility]) Diastolic blood pressure 85 mm[Hg] 85 mm[Hg] [facility] ([facility]) Body height 72 [in_i] 72 [in_i] [facility] ([facility]) Body mass index (BMI) [Ratio] 30.2 kg/m2 30.2 k g/m2 [facility] ([facility]) Systolic blood pressure 130 mm[Hg] 130 mm[Hg] A [facility] ([facility]) Body weight 3558 [oz_av] 3558 [oz_av] [facility] ([facility]) Diastolic blood pressure 85 mm[Hg] 85 mm[Hg] [facility] ([facility]) Body height 72 [in_i] 72 [in_i] [facility] ([facility]) Body mass index (BMI) [Ratio] 30.2 kg/m2 30.2 k g/m2 [facility] ([facility]) Systolic blood pressure 130 mm[Hg] 130 mm[Hg] A [facility] ([facility]) Body weight 3558 [oz_av] 3558 [oz_av] [facility] ([facility]) Diastolic blood pressure 85 mm[Hg] 85 mm[Hg] [facility] ([facility]) Body height 72 [in_i] 72 [in_i] [facility] ([facility]) Body mass index (BMI) [Ratio] 30.2 kg/m2 30.2 k g/m2 [facility] ([facility]) Systolic blood pressure 130 mm[Hg] 130 mm[Hg] A [facility] ([facility]) Body weight 3558 [oz_av] 3558 [oz_av] [facility] ([facility]) Diastolic blood pressure 85 mm[Hg] 85 mm[Hg] [facility] ([facility]) Body height 72 [in_i] 72 [in_i] [facility] ([facility]) Body mass index (BMI) [Ratio] 30.2 kg/m2 30.2 k g/m2 [facility] ([facility]) Systolic blood pressure 130 mm[Hg] 130 mm[Hg] A [facility] ([facility]) Body weight 3558 [oz_av] 3558 [oz_av] [facility] ([facility]) Diastolic blood pressure 85 mm[Hg] 85 mm[Hg] [facility] ([facility]) Body height 72 [in_i] 72 [in_i] [facility] ([facility]) Body mass index (BMI) [Ratio] 30.2 kg/m2 30.2 k g/m2 [facility] ([facility]) Systolic blood pressure 130 mm[Hg] 130 mm[Hg] A [facility] ([facility]) Body weight 3558 [oz_av] 3558 [oz_av] [facility] ([facility]) Diastolic blood pressure 85 mm[Hg] 85 mm[Hg] [facility] ([facility]) Body height 72 [in_i] 72 [in_i] [facility] ([facility]) Body mass index (BMI) [Ratio] 30.2 kg/m2 30.2 k g/m2 [facility] ([facility]) Systolic blood pressure 130 mm[Hg] 130 mm[Hg] [facility]) Body weight 3558 [oz_av] 3558 [oz_av] [facility] ([facility]) Diastolic blood pressure 85 mm[Hg] 85 mm[Hg] [facility] ([facility]) Body height 72 [in_i] 72 [in_i] [facility] ([facility]) Body mass index (BMI) [Ratio] 30.2 kg/m2 30.2 k g/m2 [facility] ([facility]) Systolic blood pressure 130 mm[Hg] 130 mm[Hg] A [facility] ([facility]) Body weight 3558 [oz_av] 3558 [oz_av] [facility] ([facility]) Diastolic blood pressure 70 mm[Hg] 70 mm[Hg] [facility] ([facility]) Body height 72 [in_i] 72 [in_i] [facility] ([facility]) Body mass index (BMI) [Ratio] 30.24 kg/m2 30.24 kg/m2 [facility] ([facility]) Systolic blood pressure 134 mm[Hg] 134 mm[Hg] A [facility] ([facility]) Body weight 3555.2 [oz_av] 3555.2 [oz_av] ATHEN A ([facility]) Diastolic blood pressure 70 mm[Hg] 70 mm[Hg] [facility] ([facility]) Body height 72 [in_i] 72 [in_i] [facility] ([facility]) Body mass index (BMI) [Ratio] 30.24 kg/m2 30.24 kg/m2 [facility] ([facility]) Systolic blood pressure 134 mm[Hg] 134 mm[Hg] A [facility] ([facility]) Body weight 3555.2 [oz_av] 3555.2 [oz_av] ATHEN A ([facility]) Diastolic blood pressure 70 mm[Hg] 70 mm[Hg] [facility] ([facility]) Body height 72 [in_i] 72 [in_i] [facility] ([facility]) Body mass index (BMI) [Ratio] 30.24 kg/m2 30.24 kg/m2 [facility] ([facility]) Systolic blood pressure 134 mm[Hg] 134 mm[Hg] [facility]) Body weight 3555.2 [oz_av] 3555.2 [oz_av] ATHEN A ([facility]) Diastolic blood pressure 70 mm[Hg] 70 mm[Hg] [facility] ([facility]) Body height 72 [in_i] 72 [in_i] [facility] ([facility]) Body mass index (BMI) [Ratio] 30.24 kg/m2 30.24 kg/m2 [facility] ([facility]) Systolic blood pressure 134 mm[Hg] 134 mm[Hg] A [facility] ([facility]) Body weight 3555.2 [oz_av] 3555.2 [oz_av] ATHEN A ([facility]) Diastolic blood pressure 70 mm[Hg] 70 mm[Hg] [facility] ([facility]) Body height 72 [in_i] 72 [in_i] [facility] ([facility]) Body mass index (BMI) [Ratio] 30.24 kg/m2 30.24 kg/m2 [facility] ([facility]) Systolic blood pressure 134 mm[Hg] 134 mm[Hg] A [facility] ([facility]) Body weight 3555.2 [oz_av] 3555.2 [oz_av] ATHEN A ([facility]) Diastolic blood pressure 70 mm[Hg] 70 mm[Hg] [facility] ([facility]) Body height 72 [in_i] 72 [in_i] [facility] ([facility]) Body mass index (BMI) [Ratio] 30.24 kg/m2 30.24 kg/m2 [facility] ([facility]) Systolic blood pressure 134 mm[Hg] 134 mm[Hg] A [facility] ([facility]) Body weight 3555.2 [oz_av] 3555.2 [oz_av] ATHEN A ([facility]) Diastolic blood pressure 70 mm[Hg] 70 mm[Hg] [facility] ([facility]) Body height 72 [in_i] 72 [in_i] [facility] ([facility]) Body mass index (BMI) [Ratio] 30.24 kg/m2 30.24 kg/m2 [facility] ([facility]) Systolic blood pressure 134 mm[Hg] 134 mm[Hg] A [facility] ([facility]) Body weight 3555.2 [oz_av] 3555.2 [oz_av] ATHEN A ([facility]) Diastolic blood pressure 70 mm[Hg] 70 mm[Hg] [facility] ([facility]) Body height 72 [in_i] 72 [in_i] [facility] ([facility]) Body mass index (BMI) [Ratio] 30.24 kg/m2 30.24 kg/m2 [facility] ([facility]) Systolic blood pressure 134 mm[Hg] 134 mm[Hg] A [facility] ([facility]) Body weight 3555.2 [oz_av] 3555.2 [oz_av] ATHEN A ([facility]) Diastolic blood pressure 70 mm[Hg] 70 mm[Hg] [facility] ([facility]) Body height 72 [in_i] 72 [in_i] [facility] ([facility]) Body mass index (BMI) [Ratio] 30.24 kg/m2 30.24 kg/m2 [facility] ([facility]) Systolic blood pressure 134 mm[Hg] 134 mm[Hg] A [facility] ([facility]) Body weight 3555.2 [oz_av] 3555.2 [oz_av] ATHEN A ([facility]) Diastolic blood pressure 70 mm[Hg] 70 mm[Hg] [facility] ([facility]) Body height 72 [in_i] 72 [in_i] [facility] ([facility]) Body mass index (BMI) [Ratio] 30.24 kg/m2 30.24 kg/m2 [facility] ([facility]) Systolic blood pressure 134 mm[Hg] 134 mm[Hg] A [facility] ([facility]) Body weight 3555.2 [oz_av] 3555.2 [oz_av] ATHEN A ([facility]) Diastolic blood pressure 70 mm[Hg] 70 mm[Hg] [facility] ([facility]) Body height 72 [in_i] 72 [in_i] [facility] ([facility]) Body mass index (BMI) [Ratio] 30.24 kg/m2 30.24 kg/m2 [facility] ([facility]) Systolic blood pressure 134 mm[Hg] 134 mm[Hg] A [facility] ([facility]) Body weight 3555.2 [oz_av] 3555.2 [oz_av] ATHEN A ([facility]) Diastolic blood pressure 70 mm[Hg] 70 mm[Hg] [facility] ([facility]) Body height 72 [in_i] 72 [in_i] [facility] ([facility]) Body mass index (BMI) [Ratio] 30.24 kg/m2 30.24 kg/m2 [facility] ([facility]) Systolic blood pressure 134 mm[Hg] 134 mm[Hg] A [facility] ([facility]) Body weight 3555.2 [oz_av] 3555.2 [oz_av] ATHEN A ([facility]) Diastolic blood pressure 70 mm[Hg] 70 mm[Hg] [facility] ([facility]) Body height 72 [in_i] 72 [in_i] [facility] ([facility]) Body mass index (BMI) [Ratio] 30.24 kg/m2 30.24 kg/m2 [facility] ([facility]) Systolic blood pressure 134 mm[Hg] 134 mm[Hg] A [facility] ([facility]) Body weight 3555.2 [oz_av] 3555.2 [oz_av] ATHEN A ([facility]) Diastolic blood pressure 70 mm[Hg] 70 mm[Hg] [facility] ([facility]) Body height 72 [in_i] 72 [in_i] [facility] ([facility]) Body mass index (BMI) [Ratio] 30.24 kg/m2 30.24 kg/m2 [facility] ([facility]) Systolic blood pressure 134 mm[Hg] 134 mm[Hg] A [facility] ([facility]) Body weight 3555.2 [oz_av] 3555.2 [oz_av] ATHEN A ([facility]) Diastolic blood pressure 70 mm[Hg] 70 mm[Hg] [facility] ([facility]) Body height 72 [in_i] 72 [in_i] [facility] ([facility]) Body mass index (BMI) [Ratio] 30.24 kg/m2 30.24 kg/m2 [facility] ([facility]) Systolic blood pressure 134 mm[Hg] 134 mm[Hg] A [facility] ([facility]) Body weight 3555.2 [oz_av] 3555.2 [oz_av] ATHEN A ([facility]) Diastolic blood pressure 70 mm[Hg] 70 mm[Hg] [facility] ([facility]) Body height 72 [in_i] 72 [in_i] [facility] ([facility]) Body mass index (BMI) [Ratio] 30.24 kg/m2 30.24 kg/m2 [facility] ([facility]) Systolic blood pressure 134 mm[Hg] 134 mm[Hg] A [facility] ([facility]) Body weight 3555.2 [oz_av] 3555.2 [oz_av] ATHEN A ([facility]) Diastolic blood pressure 70 mm[Hg] 70 mm[Hg] [facility] ([facility]) Body height 72 [in_i] 72 [in_i] [facility] ([facility]) Body mass index (BMI) [Ratio] 30.24 kg/m2 30.24 kg/m2 [facility] ([facility]) Systolic blood pressure 134 mm[Hg] 134 mm[Hg] A [facility] ([facility]) Body weight 3555.2 [oz_av] 3555.2 [oz_av] ATHEN A ([facility]) Diastolic blood pressure 70 mm[Hg] 70 mm[Hg] [facility] ([facility]) Body height 72 [in_i] 72 [in_i] [facility] ([facility]) Body mass index (BMI) [Ratio] 30.24 kg/m2 30.24 kg/m2 [facility] ([facility]) Systolic blood pressure 134 mm[Hg] 134 mm[Hg] [facility]) Body weight 3555.2 [oz_av] 3555.2 [oz_av] ATHEN A ([facility]) Diastolic blood pressure 70 mm[Hg] 70 mm[Hg] [facility] ([facility]) Body height 72 [in_i] 72 [in_i] [facility] ([facility]) Body mass index (BMI) [Ratio] 30.24 kg/m2 30.24 kg/m2 [facility] ([facility]) Systolic blood pressure 134 mm[Hg] 134 mm[Hg] A [facility] ([facility]) Body weight 3555.2 [oz_av] 3555.2 [oz_av] ATHEN A ([facility]) Diastolic blood pressure 70 mm[Hg] 70 mm[Hg] [facility] ([facility]) Body height 72 [in_i] 72 [in_i] [facility] ([facility]) Body mass index (BMI) [Ratio] 30.24 kg/m2 30.24 kg/m2 [facility] ([facility]) Systolic blood pressure 134 mm[Hg] 134 mm[Hg] A [facility] ([facility]) Body weight 3555.2 [oz_av] 3555.2 [oz_av] ATHEN A ([facility]) Diastolic blood pressure 70 mm[Hg] 70 mm[Hg] [facility] ([facility]) Body height 72 [in_i] 72 [in_i] [facility] ([facility]) Body mass index (BMI) [Ratio] 30.24 kg/m2 30.24 kg/m2 [facility] ([facility]) Systolic blood pressure 134 mm[Hg] 134 mm[Hg] [facility]) Body weight 3555.2 [oz_av] 3555.2 [oz_av] ATHEN A ([facility]) Diastolic blood pressure 70 mm[Hg] 70 mm[Hg] [facility] ([facility]) Body height 72 [in_i] 72 [in_i] [facility] ([facility]) Body mass index (BMI) [Ratio] 30.24 kg/m2 30.24 kg/m2 [facility] ([facility]) Systolic blood pressure 134 mm[Hg] 134 mm[Hg] [facility]) Body weight 3555.2 [oz_av] 3555.2 [oz_av] ATHEN A ([facility]) Diastolic blood pressure 70 mm[Hg] 70 mm[Hg] [facility] ([facility]) Body height 72 [in_i] 72 [in_i] [facility] ([facility]) Body mass index (BMI) [Ratio] 30.24 kg/m2 30.24 kg/m2 [facility] ([facility]) Systolic blood pressure 134 mm[Hg] 134 mm[Hg] A [facility] ([facility]) Body weight 3555.2 [oz_av] 3555.2 [oz_av] ATHEN A ([facility]) Diastolic blood pressure 91 mm[Hg] 91 mm[Hg] [facility] ([facility]) Diastolic blood pressure 91 mm[Hg] 91 mm[Hg] [facility] ([facility]) Body height 72 [in_i] 72 [in_i] [facility] ([facility]) Systolic blood pressure 135 mm[Hg] 135 mm[Hg] [facility]) Systolic blood pressure 148 mm[Hg] 148 mm[Hg] A [facility] ([facility]) Body weight 3539.2 [oz_av] 3539.2 [oz_av] ATHEN A ([facility]) Diastolic blood pressure 91 mm[Hg] 91 mm[Hg] HILDA ([facility]) Diastolic blood pressure 91 mm[Hg] 91 mm[Hg] [facility] ([facility]) Body height 72 [in_i] 72 [in_i] [facility] ([facility]) Systolic blood pressure 135 mm[Hg] 135 mm[Hg] A [facility] ([facility]) Systolic blood pressure 148 mm[Hg] 148 mm[Hg] A [facility] ([facility]) Body weight 3539.2 [oz_av] 3539.2 [oz_av] ATHEN A ([facility]) Diastolic blood pressure 79 mm[Hg] 79 mm[Hg] HILDA ([facility]) Diastolic blood pressure 91 mm[Hg] 91 mm[Hg] [facility]DA ([facility]) Diastolic blood pressure 91 mm[Hg] 91 mm[Hg] [facility] ([facility]) Body height 72 [in_i] 72 [in_i] [facility]DA ([facility]) Body mass index (BMI) [Ratio] 30.11 kg/m2 30.11 kg/m2 [facility] ([facility]) Systolic blood pressure 135 mm[Hg] 135 mm[Hg] A [facility] ([facility]) Systolic blood pressure 135 mm[Hg] 135 mm[Hg] A [facility]) Systolic blood pressure 148 mm[Hg] 148 mm[Hg] A [facility] ([facility]) Body weight 3539.2 [oz_av] 3539.2 [oz_av] ATHEN A ([facility]) Diastolic blood pressure 91 mm[Hg] 91 mm[Hg] HILDA ([facility]) Diastolic blood pressure 91 mm[Hg] 91 mm[Hg] [facility] ([facility]) Body height 72 [in_i] 72 [in_i] [facility] ([facility]) Systolic blood pressure 135 mm[Hg] 135 mm[Hg] A [facility] ([facility]) Systolic blood pressure 148 mm[Hg] 148 mm[Hg] A [facility] ([facility]) Body weight 3539.2 [oz_av] 3539.2 [oz_av] ATHEN A ([facility]) Diastolic blood pressure 79 mm[Hg] 79 mm[Hg] [facility]ILDA ([facility]) Diastolic blood pressure 91 mm[Hg] 91 mm[Hg] [facility] ([facility]) Diastolic blood pressure 91 mm[Hg] 91 mm[Hg] [facility] ([facility]) Body height 72 [in_i] 72 [in_i] [facility] ([facility]) Body mass index (BMI) [Ratio] 30.11 kg/m2 30.11 kg/m2 [facility] ([facility]) Systolic blood pressure 135 mm[Hg] 135 mm[Hg] A [facility] ([facility]) Systolic blood pressure 135 mm[Hg] 135 mm[Hg] A [facility] ([facility]) Systolic blood pressure 148 mm[Hg] 148 mm[Hg] A [facility] ([facility]) Body weight 3539.2 [oz_av] 3539.2 [oz_av] ATHEN A ([facility]) Diastolic blood pressure 91 mm[Hg] 91 mm[Hg] [facility]DA ([facility]) Diastolic blood pressure 91 mm[Hg] 91 mm[Hg] [facility] ([facility]) Body height 72 [in_i] 72 [in_i] [facility] ([facility]) Systolic blood pressure 135 mm[Hg] 135 mm[Hg] A [facility] ([facility]) Systolic blood pressure 148 mm[Hg] 148 mm[Hg] A [facility] ([facility]) Body weight 3539.2 [oz_av] 3539.2 [oz_av] ATHEN A ([facility]) Diastolic blood pressure 91 mm[Hg] 91 mm[Hg] [facility]DA ([facility]) Diastolic blood pressure 91 mm[Hg] 91 mm[Hg] [facility] ([facility]) Body height 72 [in_i] 72 [in_i] [facility] ([facility]) Systolic blood pressure 135 mm[Hg] 135 mm[Hg] A [facility] ([facility]) Systolic blood pressure 148 mm[Hg] 148 mm[Hg] A [facility] ([facility]) Body weight 3539.2 [oz_av] 3539.2 [oz_av] ATHEN A ([facility]) Diastolic blood pressure 91 mm[Hg] 91 mm[Hg] HILDA ([facility]) Diastolic blood pressure 91 mm[Hg] 91 mm[Hg] [facility] ([facility]) Body height 72 [in_i] 72 [in_i] [facility] ([facility]) Systolic blood pressure 135 mm[Hg] 135 mm[Hg] A [facility] ([facility]) Systolic blood pressure 148 mm[Hg] 148 mm[Hg] A [facility] ([facility]) Body weight 3539.2 [oz_av] 3539.2 [oz_av] ATHEN A ([facility]) Diastolic blood pressure 91 mm[Hg] 91 mm[Hg] HILDA ([facility]) Diastolic blood pressure 91 mm[Hg] 91 mm[Hg] [facility] ([facility]) Body height 72 [in_i] 72 [in_i] [facility] ([facility]) Systolic blood pressure 135 mm[Hg] 135 mm[Hg] A [facility] ([facility]) Systolic blood pressure 148 mm[Hg] 148 mm[Hg] A [facility] ([facility]) Body weight 3539.2 [oz_av] 3539.2 [oz_av] ATHEN A ([facility]) Diastolic blood pressure 91 mm[Hg] 91 mm[Hg] HILDA ([facility]) Diastolic blood pressure 91 mm[Hg] 91 mm[Hg] [facility] ([facility]) Body height 72 [in_i] 72 [in_i] [facility] ([facility]) Systolic blood pressure 135 mm[Hg] 135 mm[Hg] A [facility] ([facility]) Systolic blood pressure 148 mm[Hg] 148 mm[Hg] A [facility] ([facility]) Body weight 3539.2 [oz_av] 3539.2 [oz_av] ATHEN A ([facility]) Diastolic blood pressure 91 mm[Hg] 91 mm[Hg] [facility]DA ([facility]) Diastolic blood pressure 91 mm[Hg] 91 mm[Hg] [facility] ([facility]) Body height 72 [in_i] 72 [in_i] [facility] ([facility]) Systolic blood pressure 135 mm[Hg] 135 mm[Hg] A [facility] ([facility]) Systolic blood pressure 148 mm[Hg] 148 mm[Hg] A [facility] ([facility]) Body weight 3539.2 [oz_av] 3539.2 [oz_av] ATHEN A ([facility]) Diastolic blood pressure 91 mm[Hg] 91 mm[Hg] H[facility]DA ([facility]) Diastolic blood pressure 91 mm[Hg] 91 mm[Hg] [facility] ([facility]) Body height 72 [in_i] 72 [in_i] [facility] ([facility]) Systolic blood pressure 135 mm[Hg] 135 mm[Hg] A [facility] ([facility]) Systolic blood pressure 148 mm[Hg] 148 mm[Hg] A [facility] ([facility]) Body weight 3539.2 [oz_av] 3539.2 [oz_av] ATHEN A ([facility]) Diastolic blood pressure 91 mm[Hg] 91 mm[Hg] H[facility]DA ([facility]) Diastolic blood pressure 91 mm[Hg] 91 mm[Hg] [facility] ([facility]) Body height 72 [in_i] 72 [in_i] [facility] ([facility]) Systolic blood pressure 135 mm[Hg] 135 mm[Hg] A [facility] ([facility]) Systolic blood pressure 148 mm[Hg] 148 mm[Hg] A [facility] ([facility]) Body weight 3539.2 [oz_av] 3539.2 [oz_av] ATHEN A ([facility]) Diastolic blood pressure 91 mm[Hg] 91 mm[Hg] HILDA ([facility]) Diastolic blood pressure 91 mm[Hg] 91 mm[Hg] [facility] ([facility]) Body height 72 [in_i] 72 [in_i] [facility] ([facility]) Systolic blood pressure 135 mm[Hg] 135 mm[Hg] A [facility] ([facility]) Systolic blood pressure 148 mm[Hg] 148 mm[Hg] A [facility] ([facility]) Body weight 3539.2 [oz_av] 3539.2 [oz_av] ATHEN A ([facility]) Diastolic blood pressure 91 mm[Hg] 91 mm[Hg] HILDA ([facility]) Diastolic blood pressure 91 mm[Hg] 91 mm[Hg] [facility] ([facility]) Body height 72 [in_i] 72 [in_i] [facility]DA ([facility]) Systolic blood pressure 135 mm[Hg] 135 mm[Hg] A [facility] ([facility]) Systolic blood pressure 148 mm[Hg] 148 mm[Hg] A [facility] ([facility]) Body weight 3539.2 [oz_av] 3539.2 [oz_av] ATHEN A ([facility]) Diastolic blood pressure 91 mm[Hg] 91 mm[Hg] HILDA ([facility]) Diastolic blood pressure 91 mm[Hg] 91 mm[Hg] [facility]DA ([facility]) Body height 72 [in_i] 72 [in_i] [facility]DA ([facility]) Systolic blood pressure 135 mm[Hg] 135 mm[Hg] A [facility] ([facility]) Systolic blood pressure 148 mm[Hg] 148 mm[Hg] A [facility] ([facility]) Body weight 3539.2 [oz_av] 3539.2 [oz_av] ATHEN A ([facility]) Diastolic blood pressure 91 mm[Hg] 91 mm[Hg] HILDA ([facility]) Diastolic blood pressure 91 mm[Hg] 91 mm[Hg] [facility] ([facility]) Body height 72 [in_i] 72 [in_i] [facility]DA ([facility]) Systolic blood pressure 135 mm[Hg] 135 mm[Hg] A [facility] ([facility]) Systolic blood pressure 148 mm[Hg] 148 mm[Hg] A [facility] ([facility]) Body weight 3539.2 [oz_av] 3539.2 [oz_av] ATHEN A ([facility]) Diastolic blood pressure 91 mm[Hg] 91 mm[Hg] HILDA ([facility]) Diastolic blood pressure 91 mm[Hg] 91 mm[Hg] H[facility]DA ([facility]) Body height 72 [in_i] 72 [in_i] [facility]DA ([facility]) Systolic blood pressure 135 mm[Hg] 135 mm[Hg] A [facility] ([facility]) Systolic blood pressure 148 mm[Hg] 148 mm[Hg] A [facility] ([facility]) Body weight 3539.2 [oz_av] 3539.2 [oz_av] ATHEN A ([facility]) Diastolic blood pressure 91 mm[Hg] 91 mm[Hg] HILDA ([facility]) Diastolic blood pressure 91 mm[Hg] 91 mm[Hg] [facility]DA ([facility]) Body height 72 [in_i] 72 [in_i] H[facility]DA ([facility]) Systolic blood pressure 135 mm[Hg] 135 mm[Hg] A [facility] ([facility]) Systolic blood pressure 148 mm[Hg] 148 mm[Hg] A [facility]) Body weight 3539.2 [oz_av] 3539.2 [oz_av] ATHEN A ([facility]) Diastolic blood pressure 79 mm[Hg] 79 mm[Hg] HILDA ([facility]) Diastolic blood pressure 91 mm[Hg] 91 mm[Hg] HILDA ([facility]) Diastolic blood pressure 91 mm[Hg] 91 mm[Hg] H[facility]DA ([facility]) Body height 72 [in_i] 72 [in_i] HILDA ([facility]) Body mass index (BMI) [Ratio] 30.11 kg/m2 30.11 kg/m2 [facility] ([facility]) Systolic blood pressure 135 mm[Hg] 135 mm[Hg] A THENA ([facility]) Systolic blood pressure 135 mm[Hg] 135 mm[Hg] A [facility]NA ([facility]) Systolic blood pressure 148 mm[Hg] 148 mm[Hg] A [facility] ([facility]) Body weight 3539.2 [oz_av] 3539.2 [oz_av] ATHEN A ([facility]) Diastolic blood pressure 79 mm[Hg] 79 mm[Hg] HILDA ([facility]) Diastolic blood pressure 91 mm[Hg] 91 mm[Hg] HILDA ([facility]) Diastolic blood pressure 91 mm[Hg] 91 mm[Hg] [facility]DA ([facility]) Body height 72 [in_i] 72 [in_i] H[facility]DA ([facility]) Body mass index (BMI) [Ratio] 30.11 kg/m2 30.11 kg/m2 [facility] ([facility]) Systolic blood pressure 135 mm[Hg] 135 mm[Hg] A [facility]NA ([facility]) Systolic blood pressure 135 mm[Hg] 135 mm[Hg] A [facility] ([facility]) Systolic blood pressure 148 mm[Hg] 148 mm[Hg] A [facility] ([facility]) Body weight 3539.2 [oz_av] 3539.2 [oz_av] ATHEN A ([facility]) Diastolic blood pressure 79 mm[Hg] 79 mm[Hg] HILDA ([facility]) Diastolic blood pressure 91 mm[Hg] 91 mm[Hg] HILDA ([facility]) Diastolic blood pressure 91 mm[Hg] 91 mm[Hg] H[facility]DA ([facility]) Body height 72 [in_i] 72 [in_i] HILDA ([facility]) Body mass index (BMI) [Ratio] 30.11 kg/m2 30.11 kg/m2 [facility] ([facility]) Systolic blood pressure 135 mm[Hg] 135 mm[Hg] A THENA ([facility]) Systolic blood pressure 135 mm[Hg] 135 mm[Hg] A [facility] ([facility]) Systolic blood pressure 148 mm[Hg] 148 mm[Hg] A [facility] ([facility]) Body weight 3539.2 [oz_av] 3539.2 [oz_av] ATHEN A ([facility]) Diastolic blood pressure 79 mm[Hg] 79 mm[Hg] HILDA ([facility]) Diastolic blood pressure 91 mm[Hg] 91 mm[Hg] H[facility]DA ([facility]) Diastolic blood pressure 91 mm[Hg] 91 mm[Hg] HILDA ([facility]) Body height 72 [in_i] 72 [in_i] HILDA ([facility]) Body mass index (BMI) [Ratio] 30.11 kg/m2 30.11 kg/m2 [facility]DA ([facility]) Systolic blood pressure 135 mm[Hg] 135 mm[Hg] A THENA ([facility]) Systolic blood pressure 135 mm[Hg] 135 mm[Hg] A [facility] ([facility]) Systolic blood pressure 148 mm[Hg] 148 mm[Hg] A [facility] ([facility]) Body weight 3539.2 [oz_av] 3539.2 [oz_av] ATHEN A ([facility]) Diastolic blood pressure 79 mm[Hg] 79 mm[Hg] HILDA ([facility]) Diastolic blood pressure 91 mm[Hg] 91 mm[Hg] HILDA ([facility]) Diastolic blood pressure 91 mm[Hg] 91 mm[Hg] H[facility]DA ([facility]) Body height 72 [in_i] 72 [in_i] H[facility]DA ([facility]) Body mass index (BMI) [Ratio] 30.11 kg/m2 30.11 kg/m2 H[facility]DA ([facility]) Systolic blood pressure 135 mm[Hg] 135 mm[Hg] A THENA ([facility]) Systolic blood pressure 135 mm[Hg] 135 mm[Hg] A [facility] ([facility]) Systolic blood pressure 148 mm[Hg] 148 mm[Hg] A [facility] ([facility]) Body weight 3539.2 [oz_av] 3539.2 [oz_av] ATHEN A ([facility]) Diastolic blood pressure 79 mm[Hg] 79 mm[Hg] HILDA ([facility]) Diastolic blood pressure 91 mm[Hg] 91 mm[Hg] H[facility]DA ([facility]) Diastolic blood pressure 91 mm[Hg] 91 mm[Hg] H[facility]DA ([facility]) Body height 72 [in_i] 72 [in_i] H[facility]DA ([facility]) Body mass index (BMI) [Ratio] 30.11 kg/m2 30.11 kg/m2 [facility] ([facility]) Systolic blood pressure 135 mm[Hg] 135 mm[Hg] A [facility]NA ([facility]) Systolic blood pressure 135 mm[Hg] 135 mm[Hg] A [facility] ([facility]) Systolic blood pressure 148 mm[Hg] 148 mm[Hg] A [facility]) Body weight 3539.2 [oz_av] 3539.2 [oz_av] ATHEN A ([facility]) Diastolic blood pressure 79 mm[Hg] 79 mm[Hg] HILDA ([facility]) Diastolic blood pressure 91 mm[Hg] 91 mm[Hg] [facility] ([facility]) Diastolic blood pressure 91 mm[Hg] 91 mm[Hg] [facility]DA ([facility]) Body height 72 [in_i] 72 [in_i] [facility]DA ([facility]) Body mass index (BMI) [Ratio] 30.11 kg/m2 30.11 kg/m2 [facility] ([facility]) Systolic blood pressure 135 mm[Hg] 135 mm[Hg] A [facility] ([facility]) Systolic blood pressure 135 mm[Hg] 135 mm[Hg] A [facility] ([facility]) Systolic blood pressure 148 mm[Hg] 148 mm[Hg] A [facility] ([facility]) Body weight 3539.2 [oz_av] 3539.2 [oz_av] ATHEN A ([facility]) Diastolic blood pressure 79 mm[Hg] 79 mm[Hg] HILDA ([facility]) Diastolic blood pressure 91 mm[Hg] 91 mm[Hg] H[facility]DA ([facility]) Diastolic blood pressure 91 mm[Hg] 91 mm[Hg] H[facility]DA ([facility]) Body height 72 [in_i] 72 [in_i] H[facility]DA ([facility]) Body mass index (BMI) [Ratio] 30.11 kg/m2 30.11 kg/m2 [facility] ([facility]) Systolic blood pressure 135 mm[Hg] 135 mm[Hg] A [facility]NA ([facility]) Systolic blood pressure 135 mm[Hg] 135 mm[Hg] A [facility] ([facility]) Systolic blood pressure 148 mm[Hg] 148 mm[Hg] A [facility] ([facility]) Body weight 3539.2 [oz_av] 3539.2 [oz_av] ATHEN A ([facility]) Diastolic blood pressure 79 mm[Hg] 79 mm[Hg] HILDA ([facility]) Diastolic blood pressure 91 mm[Hg] 91 mm[Hg] [facility]DA ([facility]) Diastolic blood pressure 91 mm[Hg] 91 mm[Hg] [facility] ([facility]) Body height 72 [in_i] 72 [in_i] [facility] ([facility]) Body mass index (BMI) [Ratio] 30.11 kg/m2 30.11 kg/m2 [facility] ([facility]) Systolic blood pressure 135 mm[Hg] 135 mm[Hg] A [facility] ([facility]) Systolic blood pressure 135 mm[Hg] 135 mm[Hg] A [facility] ([facility]) Systolic blood pressure 148 mm[Hg] 148 mm[Hg] A [facility] ([facility]) Body weight 3539.2 [oz_av] 3539.2 [oz_av] ATHEN A ([facility]) Diastolic blood pressure 79 mm[Hg] 79 mm[Hg] H[facility]DA ([facility]) Diastolic blood pressure 91 mm[Hg] 91 mm[Hg] [facility] ([facility]) Diastolic blood pressure 91 mm[Hg] 91 mm[Hg] [facility] ([facility]) Body height 72 [in_i] 72 [in_i] [facility] ([facility]) Body mass index (BMI) [Ratio] 30.11 kg/m2 30.11 kg/m2 [facility] ([facility]) Systolic blood pressure 135 mm[Hg] 135 mm[Hg] A [facility] ([facility]) Systolic blood pressure 135 mm[Hg] 135 mm[Hg] A [facility] ([facility]) Systolic blood pressure 148 mm[Hg] 148 mm[Hg] A [facility] ([facility]) Body weight 3539.2 [oz_av] 3539.2 [oz_av] ATHEN A ([facility]) Diastolic blood pressure 79 mm[Hg] 79 mm[Hg] H[facility]DA ([facility]) Diastolic blood pressure 91 mm[Hg] 91 mm[Hg] [facility] ([facility]) Diastolic blood pressure 91 mm[Hg] 91 mm[Hg] [facility] ([facility]) Body height 72 [in_i] 72 [in_i] [facility] ([facility]) Body mass index (BMI) [Ratio] 30.11 kg/m2 30.11 kg/m2 [facility] ([facility]) Systolic blood pressure 135 mm[Hg] 135 mm[Hg] A [facility] ([facility]) Systolic blood pressure 135 mm[Hg] 135 mm[Hg] A [facility] ([facility]) Systolic blood pressure 148 mm[Hg] 148 mm[Hg] A [facility] ([facility]) Body weight 3539.2 [oz_av] 3539.2 [oz_av] ATHEN A ([facility]) Diastolic blood pressure 79 mm[Hg] 79 mm[Hg] [facility] ([facility]) Diastolic blood pressure 91 mm[Hg] 91 mm[Hg] [facility] ([facility]) Diastolic blood pressure 91 mm[Hg] 91 mm[Hg] [facility] ([facility]) Body height 72 [in_i] 72 [in_i] [facility] ([facility]) Body mass index (BMI) [Ratio] 30.11 kg/m2 30.11 kg/m2 [facility] ([facility]) Systolic blood pressure 135 mm[Hg] 135 mm[Hg] A [facility] ([facility]) Systolic blood pressure 135 mm[Hg] 135 mm[Hg] A [facility] ([facility]) Systolic blood pressure 148 mm[Hg] 148 mm[Hg] A [facility] ([facility]) Body weight 3539.2 [oz_av] 3539.2 [oz_av] ATHEN A ([facility]) Diastolic blood pressure 79 mm[Hg] 79 mm[Hg] [facility] ([facility]) Diastolic blood pressure 91 mm[Hg] 91 mm[Hg] [facility] ([facility]) Diastolic blood pressure 91 mm[Hg] 91 mm[Hg] [facility] ([facility]) Body height 72 [in_i] 72 [in_i] [facility] ([facility]) Body mass index (BMI) [Ratio] 30.11 kg/m2 30.11 kg/m2 [facility] ([facility]) Systolic blood pressure 135 mm[Hg] 135 mm[Hg] A [facility] ([facility]) Systolic blood pressure 135 mm[Hg] 135 mm[Hg] A [facility] ([facility]) Systolic blood pressure 148 mm[Hg] 148 mm[Hg] A [facility] ([facility]) Body weight 3539.2 [oz_av] 3539.2 [oz_av] ATHEN A ([facility]) Diastolic blood pressure 79 mm[Hg] 79 mm[Hg] [facility] ([facility]) Diastolic blood pressure 91 mm[Hg] 91 mm[Hg] [facility] ([facility]) Diastolic blood pressure 91 mm[Hg] 91 mm[Hg] [facility] ([facility]) Body height 72 [in_i] 72 [in_i] [facility] ([facility]) Body mass index (BMI) [Ratio] 30.11 kg/m2 30.11 kg/m2 [facility] ([facility]) Systolic blood pressure 135 mm[Hg] 135 mm[Hg] A [facility] ([facility]) Systolic blood pressure 135 mm[Hg] 135 mm[Hg] A [facility] ([facility]) Systolic blood pressure 148 mm[Hg] 148 mm[Hg] A [facility] ([facility]) Body weight 3539.2 [oz_av] 3539.2 [oz_av] ATHEN A ([facility]) Diastolic blood pressure 79 mm[Hg] 79 mm[Hg] [facility] ([facility]) Diastolic blood pressure 91 mm[Hg] 91 mm[Hg] [facility] ([facility]) Diastolic blood pressure 91 mm[Hg] 91 mm[Hg] [facility] ([facility]) Body height 72 [in_i] 72 [in_i] [facility] ([facility]) Body mass index (BMI) [Ratio] 30.11 kg/m2 30.11 kg/m2 [facility] ([facility]) Systolic blood pressure 135 mm[Hg] 135 mm[Hg] A [facility] ([facility]) Systolic blood pressure 135 mm[Hg] 135 mm[Hg] A [facility] ([facility]) Systolic blood pressure 148 mm[Hg] 148 mm[Hg] A [facility] ([facility]) Body weight 3539.2 [oz_av] 3539.2 [oz_av] ATHEN A ([facility]) Diastolic blood pressure 79 mm[Hg] 79 mm[Hg] [facility] ([facility]) Diastolic blood pressure 91 mm[Hg] 91 mm[Hg] [facility] ([facility]) Diastolic blood pressure 91 mm[Hg] 91 mm[Hg] [facility] ([facility]) Body height 72 [in_i] 72 [in_i] [facility] ([facility]) Body mass index (BMI) [Ratio] 30.11 kg/m2 30.11 kg/m2 [facility] ([facility]) Systolic blood pressure 135 mm[Hg] 135 mm[Hg] A [facility] ([facility]) Systolic blood pressure 135 mm[Hg] 135 mm[Hg] A [facility] ([facility]) Systolic blood pressure 148 mm[Hg] 148 mm[Hg] A [facility] ([facility]) Body weight 3539.2 [oz_av] 3539.2 [oz_av] ATHEN A ([facility]) Diastolic blood pressure 79 mm[Hg] 79 mm[Hg] [facility] ([facility]) Diastolic blood pressure 91 mm[Hg] 91 mm[Hg] [facility] ([facility]) Diastolic blood pressure 91 mm[Hg] 91 mm[Hg] [facility] ([facility]) Body height 72 [in_i] 72 [in_i] [facility] ([facility]) Body mass index (BMI) [Ratio] 30.11 kg/m2 30.11 kg/m2 [facility] ([facility]) Systolic blood pressure 135 mm[Hg] 135 mm[Hg] A [facility] ([facility]) Systolic blood pressure 135 mm[Hg] 135 mm[Hg] A [facility] ([facility]) Systolic blood pressure 148 mm[Hg] 148 mm[Hg] A [facility] ([facility]) Body weight 3539.2 [oz_av] 3539.2 [oz_av] ATHEN A ([facility]) Diastolic blood pressure 79 mm[Hg] 79 mm[Hg] [facility] ([facility]) Diastolic blood pressure 91 mm[Hg] 91 mm[Hg] [facility] ([facility]) Diastolic blood pressure 91 mm[Hg] 91 mm[Hg] [facility] ([facility]) Body height 72 [in_i] 72 [in_i] [facility] ([facility]) Body mass index (BMI) [Ratio] 30.11 kg/m2 30.11 kg/m2 [facility] ([facility]) Systolic blood pressure 135 mm[Hg] 135 mm[Hg] A [facility] ([facility]) Systolic blood pressure 135 mm[Hg] 135 mm[Hg] A [facility] ([facility]) Systolic blood pressure 148 mm[Hg] 148 mm[Hg] A [facility] ([facility]) Body weight 3539.2 [oz_av] 3539.2 [oz_av] ATHEN A ([facility]) Diastolic blood pressure 79 mm[Hg] 79 mm[Hg] [facility] ([facility]) Diastolic blood pressure 91 mm[Hg] 91 mm[Hg] [facility] ([facility]) Diastolic blood pressure 91 mm[Hg] 91 mm[Hg] [facility] ([facility]) Body height 72 [in_i] 72 [in_i] [facility] ([facility]) Body mass index (BMI) [Ratio] 30.11 kg/m2 30.11 kg/m2 [facility] ([facility]) Systolic blood pressure 135 mm[Hg] 135 mm[Hg] A [facility] ([facility]) Systolic blood pressure 135 mm[Hg] 135 mm[Hg] A [facility] ([facility]) Systolic blood pressure 148 mm[Hg] 148 mm[Hg] A [facility] ([facility]) Body weight 3539.2 [oz_av] 3539.2 [oz_av] ATHEN A ([facility]) Diastolic blood pressure 79 mm[Hg] 79 mm[Hg] [facility] ([facility]) Diastolic blood pressure 91 mm[Hg] 91 mm[Hg] [facility] ([facility]) Diastolic blood pressure 91 mm[Hg] 91 mm[Hg] [facility] ([facility]) Body height 72 [in_i] 72 [in_i] [facility] ([facility]) Body mass index (BMI) [Ratio] 30.11 kg/m2 30.11 kg/m2 [facility] ([facility]) Systolic blood pressure 135 mm[Hg] 135 mm[Hg] A [facility] ([facility]) Systolic blood pressure 135 mm[Hg] 135 mm[Hg] A THENA ([facility]) Systolic blood pressure 148 mm[Hg] 148 mm[Hg] A THENA ([facility]) Body weight 3539.2 [oz_av] 3539.2 [oz_av] ATHEN A ([facility]) Diastolic blood pressure 79 mm[Hg] 79 mm[Hg] HILDA ([facility]) Diastolic blood pressure 91 mm[Hg] 91 mm[Hg] HILDA ([facility]) Diastolic blood pressure 91 mm[Hg] 91 mm[Hg] HILDA ([facility]) Body height 72 [in_i] 72 [in_i] HILDA ([facility]) Body mass index (BMI) [Ratio] 30.11 kg/m2 30.11 kg/m2 HILDA ([facility]) Systolic blood pressure 135 mm[Hg] 135 mm[Hg] A THENA ([facility]) Systolic blood pressure 135 mm[Hg] 135 mm[Hg] A THENA ([facility]) Systolic blood pressure 148 mm[Hg] 148 mm[Hg] A THENA ([facility]) Body weight 3539.2 [oz_av] 3539.2 [oz_av] ATHEN A ([facility]) Patient Treatment Plan of Care Planned Activity Planned Date Details Description Data Source (s) Amoxicillin 875 MG / Clavulanate 125 MG Oral Tablet 04/02/19 21 12:00:00 AM EST HILDA ([facility]) Amoxicillin 875 MG / Clavulanate 125 MG Oral Tablet 04/02/19 21 12:00:00 AM EST HILDA ([facility]) Amoxicillin 875 MG / Clavulanate 125 MG Oral Tablet 04/02/19 21 12:00:00 AM EST HILDA ([facility]) Amoxicillin 875 MG / Clavulanate 125 MG Oral Tablet 04/02/19 21 12:00:00 AM EST HILDA ([facility]) Amoxicillin 875 MG / Clavulanate 125 MG Oral Tablet 04/02/19 21 12:00:00 AM EST HILDA ([facility]) Amoxicillin 875 MG / Clavulanate 125 MG Oral Tablet 04/02/19 21 12:00:00 AM EST HILDA ([facility]) Amoxicillin 875 MG / Clavulanate 125 MG Oral Tablet 04/02/19 21 12:00:00 AM EST HILDA ([facility]) Amoxicillin 875 MG / Clavulanate 125 MG Oral Tablet 04/02/19 21 12:00:00 AM EST HILDA ([facility]) Amoxicillin 875 MG / Clavulanate 125 MG Oral Tablet 04/02/19 21 12:00:00 AM EST HILDA ([facility]) Amoxicillin 875 MG / Clavulanate 125 MG Oral Tablet 04/02/19 21 12:00:00 AM EST HILDA ([facility]) Amoxicillin 875 MG / Clavulanate 125 MG Oral Tablet 04/02/19 21 12:00:00 AM EST HILDA ([facility]) Amoxicillin 875 MG / Clavulanate 125 MG Oral Tablet 04/02/19 21 12:00:00 AM EST HILDA ([facility]) Amoxicillin 875 MG / Clavulanate 125 MG Oral Tablet 04/02/19 21 12:00:00 AM EST HILDA ([facility]) Amoxicillin 875 MG / Clavulanate 125 MG Oral Tablet 04/02/19 21 12:00:00 AM EST HILDA ([facility]) Amoxicillin 875 MG / Clavulanate 125 MG Oral Tablet 04/02/19 21 12:00:00 AM EST SAYNER ([facility]) Amoxicillin 875 MG / Clavulanate 125 MG Oral Tablet 04/02/19 21 12:00:00 AM EST HILDA ([facility]) Amoxicillin 875 MG / Clavulanate 125 MG Oral Tablet 04/02/19 21 12:00:00 AM EST HILDA ([facility]) Amoxicillin 875 MG / Clavulanate 125 MG Oral Tablet 04/02/19 21 12:00:00 AM EST HILDA ([facility]) Amoxicillin 875 MG / Clavulanate 125 MG Oral Tablet 04/02/19 21 12:00:00 AM EST HILDA ([facility]) Amoxicillin 875 MG / Clavulanate 125 MG Oral Tablet 04/02/19 21 12:00:00 AM EST HILDA ([facility]) Amoxicillin 875 MG / Clavulanate 125 MG Oral Tablet 04/02/19 21 12:00:00 AM EST HILDA ([facility]) Amoxicillin 875 MG / Clavulanate 125 MG Oral Tablet 04/02/19 21 12:00:00 AM EST SAYNER ([facility]) Amoxicillin 875 MG / Clavulanate 125 MG Oral Tablet 04/02/19 21 12:00:00 AM EST SAYNER ([facility]) Escitalopram 10 MG Oral Tablet [Lexapro] 10/28/2019 12:00:00 AM EDT HILDA ([facility]) Escitalopram 10 MG Oral Tablet [Lexapro] 10/28/2019 12:00:00 AM EDT HILDA ([facility]) Escitalopram 10 MG Oral Tablet [Lexapro] 10/28/2019 12:00:00 AM EDT HILDA ([facility]) Escitalopram 10 MG Oral Tablet [Lexapro] 10/28/2019 12:00:00 AM EDT HILDA ([facility]) Escitalopram 10 MG Oral Tablet [Lexapro] 10/28/2019 12:00:00 AM EDT HILDA ([facility]) Escitalopram 10 MG Oral Tablet [Lexapro] 10/28/2019 12:00:00 AM EDT HILDA ([facility]) Escitalopram 10 MG Oral Tablet [Lexapro] 10/28/2019 12:00:00 AM EDT HILDA ([facility]) Escitalopram 10 MG Oral Tablet [Lexapro] 10/28/2019 12:00:00 AM EDT SAYNER ([facility]) Escitalopram 10 MG Oral Tablet [Lexapro] 10/28/2019 12:00:00 AM EDT HILDA ([facility]) Escitalopram 10 MG Oral Tablet [Lexapro] 10/28/2019 12:00:00 AM EDT HILDA ([facility]) Escitalopram 10 MG Oral Tablet [Lexapro] 10/28/2019 12:00:00 AM EDT HILDA ([facility]) Escitalopram 10 MG Oral Tablet [Lexapro] 10/28/2019 12:00:00 AM EDT HILDA ([facility]) Escitalopram 10 MG Oral Tablet [Lexapro] 10/28/2019 12:00:00 AM EDT HILDA ([facility]) Escitalopram 10 MG Oral Tablet [Lexapro] 10/28/2019 12:00:00 AM EDT HILDA ([facility]) Escitalopram 10 MG Oral Tablet [Lexapro] 10/28/2019 12:00:00 AM EDT HILDA ([facility]) Escitalopram 10 MG Oral Tablet [Lexapro] 10/28/2019 12:00:00 AM EDT SAYNER ([facility]) Escitalopram 10 MG Oral Tablet [Lexapro] 10/28/2019 12:00:00 AM EDT SAYNER ([facility]) Escitalopram 10 MG Oral Tablet [Lexapro] 10/28/2019 12:00:00 AM EDT HILDA ([facility]) Escitalopram 10 MG Oral Tablet [Lexapro] 10/28/2019 12:00:00 AM EDT HILDA ([facility]) Escitalopram 10 MG Oral Tablet [Lexapro] 10/28/2019 12:00:00 AM EDT SAYNER ([facility]) Escitalopram 10 MG Oral Tablet [Lexapro] 10/28/2019 12:00:00 AM EDT SAYNER ([facility]) Escitalopram 10 MG Oral Tablet [Lexapro] 10/28/2019 12:00:00 AM EDT SAYNER ([facility]) Escitalopram 10 MG Oral Tablet [Lexapro] 10/28/2019 12:00:00 AM EDT SAYNER ([facility]) Escitalopram 10 MG Oral Tablet [Lexapro] 09/10/2019 12:00:00 AM EDT HILDA ([facility]) Escitalopram 10 MG Oral Tablet [Lexapro] 09/10/2019 12:00:00 AM EDT SAYNER ([facility]) Trazodone Hydrochloride 50 MG Oral Tablet HILDA ([facility]) Sumatriptan 25 MG Oral Tablet SAYNER ([facility]) Omeprazole 20 MG Delayed Release Oral Capsule HILDA ([facility]) Lorazepam 1 MG Oral Tablet A THENA ([facility]) Hydroxyzine Hydrochloride 25 MG Oral Tablet HILDA ([facility]) fluticasone propionate 50 mcg/actuation nasal spray,suspension [place] 1 spray every day by intranasal route as needed. HILDA ([facility]) cetirizine hydrochloride 10 MG Oral Tablet HILDA ([facility]) albuterol sulfate HFA 90 mcg/actuation a erosol inhaler INHALE 2 PUFFS BY MOUTH EVERY 4 HOURS NEEDED HILDA ( [facility]) Trazodone Hydrochloride 50 MG Oral Tablet HILDA ([facility]) Sumatriptan 25 MG Oral Tablet HILDA ([facility]) Omeprazole 20 MG Delayed Release Oral Capsule HILDA ([facility]) Lorazepam 1 MG Oral Tablet A THENA ([facility]) Hydroxyzine Hydrochloride 25 MG Oral Tablet HILDA ([facility]) fluticasone propionate 50 mcg/actuation nasal spray,suspension [place] 1 spray every day by intranasal route as needed. HILDA ([facility]) cetirizine hydrochloride 10 MG Oral Tablet HILDA ([facility]) albuterol sulfate HFA 90 mcg/actuation a erosol inhaler INHALE 2 PUFFS BY MOUTH EVERY 4 HOURS NEEDED HILDA ( [facility]) cetirizine hydrochloride 10 MG Oral Tablet HILDA ([facility]) Trazodone Hydrochloride 50 MG Oral Tablet HILDA ([facility]) cetirizine hydrochloride 10 MG Oral Tablet HILDA ([facility]) Trazodone Hydrochloride 50 MG Oral Tablet HILDA ([facility]) cetirizine hydrochloride 10 MG Oral Tablet HILDA ([facility]) Trazodone Hydrochloride 50 MG Oral Tablet HILDA ([facility]) cetirizine hydrochloride 10 MG Oral Tablet HILDA ([facility]) Trazodone Hydrochloride 50 MG Oral Tablet HILDA ([facility]) cetirizine hydrochloride 10 MG Oral Tablet HILDA ([facility]) Trazodone Hydrochloride 50 MG Oral Tablet HILDA ([facility]) cetirizine hydrochloride 10 MG Oral Tablet HILDA ([facility]) Trazodone Hydrochloride 50 MG Oral Tablet HILDA ([facility]) cetirizine hydrochloride 10 MG Oral Tablet HILDA ([facility]) Trazodone Hydrochloride 50 MG Oral Tablet HILDA ([facility]) cetirizine hydrochloride 10 MG Oral Tablet HILDA ([facility]) Trazodone Hydrochloride 50 MG Oral Tablet HILDA ([facility]) cetirizine hydrochloride 10 MG Oral Tablet HILDA ([facility]) Trazodone Hydrochloride 50 MG Oral Tablet HILDA ([facility]) cetirizine hydrochloride 10 MG Oral Tablet HILDA ([facility]) Trazodone Hydrochloride 50 MG Oral Tablet HILDA ([facility]) cetirizine hydrochloride 10 MG Oral Tablet HILDA ([facility]) Trazodone Hydrochloride 50 MG Oral Tablet HILDA ([facility]) cetirizine hydrochloride 10 MG Oral Tablet HILDA ([facility]) Trazodone Hydrochloride 50 MG Oral Tablet HILDA ([facility]) cetirizine hydrochloride 10 MG Oral Tablet HILDA ([facility]) Trazodone Hydrochloride 50 MG Oral Tablet HILDA ([facility]) cetirizine hydrochloride 10 MG Oral Tablet HILDA ([facility]) Trazodone Hydrochloride 50 MG Oral Tablet HILDA ([facility]) cetirizine hydrochloride 10 MG Oral Tablet HILDA ([facility]) Trazodone Hydrochloride 50 MG Oral Tablet HILDA ([facility]) cetirizine hydrochloride 10 MG Oral Tablet HILDA ([facility]) Trazodone Hydrochloride 50 MG Oral Tablet HILDA ([facility]) cetirizine hydrochloride 10 MG Oral Tablet HILDA ([facility]) Trazodone Hydrochloride 50 MG Oral Tablet HILDA ([facility]) cetirizine hydrochloride 10 MG Oral Tablet IHLDA ([facility]) Trazodone Hydrochloride 50 MG Oral Tablet HILDA ([facility]) Trazodone Hydrochloride 50 MG Oral Tablet HILDA ([facility]) Trazodone Hydrochloride 50 MG Oral Tablet HILDA ([facility]) Trazodone Hydrochloride 50 MG Oral Tablet HILDA ([facility]) Hydroxyzine Hydrochloride 10 MG Oral Tablet HILDA ([facility]) Escitalopram 10 MG Oral Tablet HILDA ([facility]) Trazodone Hydrochloride 50 MG Oral Tablet HILDA ([facility]) Hydroxyzine Hydrochloride 10 MG Oral Tablet HILDA ([facility]) Escitalopram 10 MG Oral Tablet HILDA ([facility]) Trazodone Hydrochloride 50 MG Oral Tablet HILDA ([facility]) Hydroxyzine Hydrochloride 10 MG Oral Tablet HILDA ([facility]) Escitalopram 10 MG Oral Tablet HILDA ([facility]) Trazodone Hydrochloride 50 MG Oral Tablet HILDA ([facility]) Hydroxyzine Hydrochloride 10 MG Oral Tablet HILDA ([facility]) Escitalopram 10 MG Oral Tablet HILDA ([facility]) Hydroxyzine Hydrochloride 10 MG Oral Tablet HILDA ([facility]) Escitalopram 10 MG Oral Tablet HILDA ([facility]) Hydroxyzine Hydrochloride 10 MG Oral Tablet HILDA ([facility]) Escitalopram 10 MG Oral Tablet HILDA ([facility]) Hydroxyzine Hydrochloride 10 MG Oral Tablet HILDA ([facility]) Escitalopram 10 MG Oral Tablet HILDA ([facility]) Hydroxyzine Hydrochloride 10 MG Oral Tablet HILDA ([facility]) Escitalopram 10 MG Oral Tablet HILDA ([facility]) Hydroxyzine Hydrochloride 10 MG Oral Tablet HILDA ([facility]) Escitalopram 10 MG Oral Tablet HILDA ([facility]) Hydroxyzine Hydrochloride 10 MG Oral Tablet HILDA ([facility]) Escitalopram 10 MG Oral Tablet HILDA ([facility]) Trazodone Hydrochloride 50 MG Oral Tablet HILDA ([facility]) cetirizine hydrochloride 10 MG Oral Tablet HILDA ([facility])
[2020-11-26] MEDS ORDERED: IBUPROFEN 800 MG TAB PO ONE (12:25)
--- NOTE | 2020-11-26 12:55 | REP ---
INDICATION: cp. COMPARISON: 04/29/2020. TECHNIQUE: Single portable AP view of the chest was performed. FINDINGS: There is no acute infiltrate or pulmonary edema. Lungs are clear. The heart is not significantly enlarged. The mediastinal silhouette is unremarkable. The visualized osseous structures are intact. IMPRESSION: No acute pulmonary disease. <Electronically signed by Brandon Bowman > 11/26/20 [id number]
[2020-11-26 12:57] LABS: BASO % 0.4 % (0.0-1.0); EOS # 0.2 10^3/uL (0.0-0.5); EOS % 1.4 % (0.0-3.0); HEMATOCRIT 48.2 % (42.0-52.0); HEMOGLOBIN 16.1 g/dl (13.5-17.5); LYMPH # 3.7 10^3/uL (1.5-5.0); LYMPH % 33.4 % (24.0-44.0); MEAN CORPUSCULAR HEMOGLOBIN 27.9 pg (27.0-33.0); MEAN CORPUSCULAR HGB CONC 33.4 g/dl (32.0-36.5); MEAN CORPUSCULAR VOLUME 83.5 fl (80.0-96.0); MONO # 0.9 10^3/uL (0.0-0.8); MONO % 7.8 % (2.0-8.0); NEUTROPHILS # 6.2 10^3/uL (1.5-8.5); NEUTROPHILS % 56.5 % (36.0-66.0); PLATELET COUNT, AUTOMATED 243 10^3/uL (150-450); RED BLOOD COUNT 5.77 10^6/uL (4.30-6.10); WHITE BLOOD COUNT 10.9 10^3/uL (4.0-10.0)
--- OUTSIDE RECORDS SUMMARY | 2020-11-26 13:17 | CCD ---
Author Author [facility] Address Unknown Phone Unavailable Care Team Providers Care Equipment Maintenance Supervisor Name Role Phone Arsh Melissa MD [...] Unavailable Unavailable Arsh Melissa MD Unavailable Unavailable rAsh Melissa MD Unavailable Unavailable Arsh Melissa MD [...] LOVE MD Unavailable Unavailable Merlene Sadler Unavailable [phone] Goldsmith, Moon Ceballos MD Unavailable Unavailable Goldsmith, [...] L Tucker DONAHUE Unavailable Unavailable Goldsmith, L Tcuker DONAHUE Unavailable Unavailable Goldsmith, Moon Ceballos MD Unavailable Unavailable Goldsmith, L Tucker DONAHUE Unavailable Unavailable Goldsmith, Moon Ceballos MD Unavailable Unavailable Goldsmith, L Tucker DONAHUE Unavailable Unavailable Goldsmith, L Tucker DONAHUE Unavailable Unavailable Goldsmith, L Tucker DONAHUE Unavailable Unavailable Goldsmith, L Tucker ODNAHUE Unavailable Unavailable Goldsmith, Moon Ceballos MD Unavailable [...] CHAYO Unavailable Unavailable DICKERSON, CHAYO Unavailable Unavailable DIKCERSON, CHAYO Unavailable Unavailable DICKERSON, CHAYO Unavailable Unavailable [...] Unavailable Maria, O Samah MD Unavailable Unavailable Maira, O Samah MD Unavailable Unavailable Maria, O [...] is protected by Article 27-F of the [facility] Public Health law. If you continue you may have access to information: Regarding HIV / AIDS; Provided by facilities licensed or operated by the [facility] Office of Mental Health; or Provided by the [facility] Office for People With Developmental Disabilities. If such information is present, then the following [facility] mandated warning applies: This information has been [...] Allergy to substance Allergy to substance [place] ([facility]) Allergy to substance Allergy to substance Allergy to substance [place] ([facility]) Encounters Encounter Providers Location Date Indications Data Source(s ) Merlene Sadler LMSW: [address], [place] [address], Ph. Attender: Merlene Sadler [facility] Medical 11/24/2020 12:00:00 AM EDT [place] ([facility]) Terry Quiroga, RPA-C: [address], [place] [address], Ph. Attender: TERRY QUIROGA RPA-C [facility] Medical 11/22/2020 12:00:00 AM EDT [place] ([facility]) Terry Quiroga RPA-C: [address], [place] [address], Ph. Attender: TERRY QUIROGA RPA-C [facility] Medical 11/22/2020 12:00:00 AM EDT [place] ([facility]) Merlene Sadler, BRANCH SERVICE ASSOCIATE: [address], [place] [address], Ph. Attender: Merlene Sadler [facility] Medical 10/28/2020 12:00:00 AM EDT [place] ([facility]) Merlene Sadler, BRANCH SERVICE ASSOCIATE: [address], [place] [address], Ph. Attender: Merlene Sadler [facility] Medical 10/28/2020 12:00:00 AM EDT [place] ([facility]) Merlene Sadler, BRANCH SERVICE ASSOCIATE: [address], [place] [address], Ph. Attender: Merlene Sadler [facility] Medical 10/28/2020 12:00:00 AM EDT [place] ([facility]) Merlene Davisjeffrey, BRANCH SERVICE ASSOCIATE: [address], [place] [address], Ph. Attender: Merlene Sadler [facility] Medical 10/07/2020 12:00:00 AM EDT [place] ([facility]) Merlene Sadler, BRANCH SERVICE ASSOCIATE: [address], [place] [address], Ph. Attender: Merlene Sadler [facility] Medical 10/07/2020 12:00:00 AM EDT [place] ([facility]) Merlene Sadler, BRANCH SERVICE ASSOCIATE: [address], [place] [address], Ph. Attender: Merlene Sadler [facility] Medical 10/07/2020 12:00:00 AM EDT [place] ([facility]) Merlene Sadler, BRANCH SERVICE ASSOCIATE: [address], [place] [address], Ph. Attender: Merlene Sadler [facility] Medical 10/07/2020 12:00:00 AM EDT [place] ([facility]) Merlene Sadler, BRANCH SERVICE ASSOCIATE: [address], [place] [address], Ph. Attender: Mrelene Sadler [facility] Medical 09/23/2020 12:00:00 AM EDT [place] ([facility]) Merlene Sadler, BRANCH SERVICE ASSOCIATE: [address], [place] [address], Ph. Attender: Merlene Sadler [facility] Medical 09/23/2020 12:00:00 AM EDT [place] ([facility]) Merlene Sadler, BRANCH SERVICE ASSOCIATE: [address], [place] [address], Ph. Attender: Merlene Sadler [facility] Medical 09/23/2020 12:00:00 AM EDT [place] ([facility]) Merlene Sadler, BRANCH SERVICE ASSOCIATE: [address], [place] [address], Ph. Attender: Merlene Sadler [facility] Medical 09/23/2020 12:00:00 AM EDT [place] ([facility]) Merlene Sadler, BRANCH SERVICE ASSOCIATE: [address], [place] [address], Ph. Attender: Merlene Sadler [facility] Medical 09/23/2020 12:00:00 AM EDT [place] ([facility]) Merlene Sadler, BRANCH SERVICE ASSOCIATE: [address], [place] [address], Ph. Attender: Merlene Sadler [facility] Medical 09/09/2020 12:00:00 AM EDT [place] ([facility]) Merlene Sadler, BRANCH SERVICE ASSOCIATE: [address], [place] [address], Ph. Attender: Merlene Sadler [facility] Medical 09/09/2020 12:00:00 AM EDT [place] ([facility]) Merlene Sadler, BRANCH SERVICE ASSOCIATE: [address], [place] [address], Ph. Attender: Merlene Sadler [facility] Medical 09/09/2020 12:00:00 AM EDT [place] ([facility]) Merlene Sadler, BRANCH SERVICE ASSOCIATE: [address], [place] [address], Ph. Attender: Merlene Sadler [facility] Medical 09/09/2020 12:00:00 AM EDT [place] ([facility]) Merlnee Sadler, BRANCH SERVICE ASSOCIATE: [address], [place] [address], Ph. Attender: Merlene Sadler [facility] Medical 09/09/2020 12:00:00 AM EDT [place] ([facility]) Merlene Sadler, [facility]: [address], [place] [address], Ph. Attender: Merlene Sadler [facility] Medical 09/09/2020 12:00:00 AM EDT [place] ([facility]) Merlene aSdler BRANCH SERVICE ASSOCIATE: [address], [place] [address], Ph. Attender: Merlene Sadler [facility] Medical 08/26/2020 12:00:00 AM EDT [place] ([facility]) Merlene Sadler, BRANCH SERVICE ASSOCIATE: [address], [place] [address], Ph. Attender: Merlene Sadler [facility] Medical 08/26/2020 12:00:00 AM EDT [place] ([facility]) Merlene Sadler BRANCH SERVICE ASSOCIATE: [address], [place] [address], Ph. Attender: Merlene Sadler [facility] Medical 08/26/2020 12:00:00 AM EDT [place] ([facility]) Merlene Sadler BRANCH SERVICE ASSOCIATE: [address], [place] [address], Ph. Attender: Merlene Sadler [facility] Medical 08/26/2020 12:00:00 AM EDT [place] ([facility]) Merlene Sadler, BRANCH SERVICE ASSOCIATE: [address], [place] [address], Ph. Attender: Merlene Sadler [facility] Medical 08/26/2020 12:00:00 AM EDT [place] ([facility]) Merlene Sadler, [facility]: [address], [place] [address], Ph. Attender: Merlene Sadler [facility] Medical 08/26/2020 12:00:00 AM EDT [place] ([facility]) Merlene Sadler LMSW: [address], [place] [address], Ph. Attender: Merlene Sadler [facility] Medical 08/26/2020 12:00:00 AM EDT [place] ([facility]) Merlene Sadler, BRANCH SERVICE ASSOCIATE: [address], [place] [address], Ph. Attender: Merlene Sadler [facility] Medical 08/18/2020 12:00:00 AM EDT [place] ([facility]) Merlene Sadler [facility]: [address], [place] [address], Ph. Attender: Merlene Sadler [facility] Medical 08/18/2020 12:00:00 AM EDT [place] ([facility]) Merlene Sadler BRANCH SERVICE ASSOCIATE: [address], [place] [address], Ph. Attender: Merlene Sadler [facility] Medical 08/18/2020 12:00:00 AM EDT [place] ([facility]) Merlene Sadler, BRANCH SERVICE ASSOCIATE: [address], [place] [address], Ph. Attender: Merlene Sadler [facility] Medical 08/18/2020 12:00:00 AM EDT [place] ([facility]) Merlene Sadler, BRANCH SERVICE ASSOCIATE: [address], [place] [address], Ph. Attender: Merlene Sadler [facility] Medical 08/18/2020 12:00:00 AM EDT [place] ([facility]) Merlene Sadler LMSW: [address], [place] [address], Ph. Attender: Merlene Sadler [facility] Medical 08/18/2020 12:00:00 AM EDT [place] ([facility]) Merlene Sadler, BRANCH SERVICE ASSOCIATE: [address], [place] [address], Ph. Attender: Merlene Sadler [facility] Medical 08/18/2020 12:00:00 AM EDT [place] ([facility]) Merlene Sadler, BRANCH SERVICE ASSOCIATE: [address], [place] [address], Ph. Attender: Merlene Sadler [facility] Medical 08/18/2020 12:00:00 AM EDT [place] ([facility]) Merlene Sadler, BRANCH SERVICE ASSOCIATE: [address], [place] [address], Ph. Attender: Merlene Sadler [facility] Medical 08/18/2020 12:00:00 AM EDT [place] ([facility]) Merlene Sadler, [facility]: [address], [place] [address], Ph. Attender: Merlene Sadler [facility] Medical 08/18/2020 12:00:00 AM EDT [place] ([facility]) Herbert Melissa MD: [address] [place] [address], Ph. Attender: Herbert Melissa MD [facility] Medical 08/12/2020 12:00:00 AM EDT [place] ([facility]) Merlene Sadler [facility]: [address], [place] [address], Ph. Attender: Merlene Sadler [facility] Medical 08/12/2020 12:00:00 AM EDT [place] ([facility]) Herbert Melissa MD: [address] [place] [address], Ph. Attender: Herbert Melissa MD [facility] Medical 08/12/2020 12:00:00 AM EDT [place] ([facility]) Merlene Sadler, [facility]: [address], [place] [address], Ph. Attender: Merlene Sadler [facility] Medical 08/12/2020 12:00:00 AM EDT [place] ([facility]) Herbert Melissa MD: [address] [place] [address], Ph. Attender: Herbert Melissa MD [facility] Medical 08/12/2020 12:00:00 AM EDT [place] ([facility]) Merlene Sadler [facility]: [address], [place] [address], Ph. Attender: Merlene Doroteo [facility] Medical 08/12/2020 12:00:00 AM EDT [place] ([facility]) Herbert Melissa MD: [address], [place] [address], Ph. Attender: Herbert Melissa MD [facility] Medical 08/12/2020 12:00:00 AM EDT [place] ([facility]) Merlene ELISE SadlerSW: [address], [place] [address], Ph. Attender: Merlene Sadler [facility] Medical 08/12/2020 12:00:00 AM EDT [place] ([facility]) Herbert Melissa MD: [address] [place] [address], Ph. Attender: Herbert Melissa MD [facility] Medical 08/12/2020 12:00:00 AM EDT [place] ([facility]) Merlene Sadler LMSW: [address], [place] [address], Ph. Attender: Merlene Sadler [facility] Medical 08/12/2020 12:00:00 AM EDT [place] ([facility]) Herbert Melissa MD: [address] [place] [address], Ph. Attender: Herbert Melissa MD [facility] Medical 08/12/2020 12:00:00 AM EDT [place] ([facility]) Merlene Pupillo, BRANCH SERVICE ASSOCIATE: [address], [place] [address], Ph. Attender: Merlene Sadler [facility] Medical 08/12/2020 12:00:00 AM EDT [place] ([facility]) Herbert Melissa MD: [address], [place] [address], Ph. Attender: Herbert Melissa MD [facility] Medical 08/12/2020 12:00:00 AM EDT [place] ([facility]) Merlene Sadler, [facility]: [address], [place] [address], Ph. Attender: Merlene Davisjeffrey [facility] Medical 08/12/2020 12:00:00 AM EDT [place] ([facility]) Herbert Melissa MD: [address] [place] [address], Ph. Attender: Herbert Melissa MD [facility] Medical 08/12/2020 12:00:00 AM EDT [place] ([facility]) Merlene Sadler, [facility]: [address], [place] [address], Ph. Attender: Merlene Davisjeffrey [facility] Medical 08/12/2020 12:00:00 AM EDT [place] ([facility]) Herbert Melissa MD: [address] [place] [address], Ph. Attender: Herbert Melissa MD [facility] Medical 08/12/2020 12:00:00 AM EDT [place] ([facility]) Merlene Sadler, BRANCH SERVICE ASSOCIATE: [address], [place] [address], Ph. Attender: Merlene Sadler [facility] Medical 08/12/2020 12:00:00 AM EDT [place] ([facility]) Herbert Melissa MD: [address] [place] [address], Ph. Attender: Herbert Melissa MD [facility] Medical 08/12/2020 12:00:00 AM EDT [place] ([facility]) Merlene Sadler, BRANCH SERVICE ASSOCIATE: [address], [place] [address], Ph. Attender: Merlene Sadler [facility] Medical 08/12/2020 12:00:00 AM EDT [place] ([facility]) Herbert Melissa MD: [address] [place] [address], Ph. Attender: Herbert Melissa MD [facility] Medical 08/12/2020 12:00:00 AM EDT [place] ([facility]) Merlene Sadler, [facility]: [address], [place] [address], Ph. Attender: Merlene Sadler [facility] Medical 08/12/2020 12:00:00 AM EDT [place] ([facility]) Merlene Sadler, [facility]: [address], [place] [address], Ph. Attender: Merlene Sadler [facility] Medical 08/05/2020 12:00:00 AM EDT [place] ([facility]) Merlene Sadler, BRANCH SERVICE ASSOCIATE: [address], [place] [address], Ph. Attender: Merlene Sadler [facility] Medical 08/05/2020 12:00:00 AM EDT [place] ([facility]) Merlene Sadler, BRANCH SERVICE ASSOCIATE: [address], [place] [address], Ph. Attender: Merlene Sadler [facility] Medical 08/05/2020 12:00:00 AM EDT [place] ([facility]) Merlene Sadler, BRANCH SERVICE ASSOCIATE: [address], [place] [address], Ph. Attender: Merlene Sadler [facility] Medical 08/05/2020 12:00:00 AM EDT [place] ([facility]) Merlene Sadler, BRANCH SERVICE ASSOCIATE: [address], [place] [address], Ph. Attender: Merlene Sadler [facility] Medical 08/05/2020 12:00:00 AM EDT [place] ([facility]) Merlene Sadler, BRANCH SERVICE ASSOCIATE: [address], [place] [address], Ph. Attender: Merlene Sadler [facility] Medical 08/05/2020 12:00:00 AM EDT [place] ([facility]) Merlene Sadler, BRANCH SERVICE ASSOCIATE: [address], [place] [address], Ph. Attender: Merlene Sadler [facility] Medical 08/05/2020 12:00:00 AM EDT [place] ([facility]) Merlene Sadler, BRANCH SERVICE ASSOCIATE: [address], [place] [address], Ph. Attender: Merlene Sadler [facility] Medical 08/05/2020 12:00:00 AM EDT [place] ([facility]) Merlene Sadler, [facility]: [address], [place] [address], Ph. Attender: Merlene Sadler [facility] Medical 08/05/2020 12:00:00 AM EDT [place] ([facility]) Merlene Sadler, BRANCH SERVICE ASSOCIATE: [address], [place] [address], Ph. Attender: Merlene Sadler [facility] Medical 08/05/2020 12:00:00 AM EDT [place] ([facility]) Merleen Sadler, BRANCH SERVICE ASSOCIATE: [address], [place] [address], Ph. Attender: Merlene Sadler [facility] Medical 08/05/2020 12:00:00 AM EDT [place] ([facility]) Merlene Sadler, BRANCH SERVICE ASSOCIATE: [address], [place] [address], Ph. Attender: Merlene Sadler [facility] Medical 08/05/2020 12:00:00 AM EDT [place] ([facility]) Merlene Sadler BRANCH SERVICE ASSOCIATE: [address], [place] [address], Ph. Attender: Merlene Sadler [facility] Medical 07/29/2020 12:00:00 AM EDT [place] ([facility]) Merlene Sadler, BRANCH SERVICE ASSOCIATE: [address], [place] [address], Ph. Attender: Merlene Sadler [facility] Medical 07/29/2020 12:00:00 AM EDT [place] ([facility]) Merlene Sadler, [facility]: [address], [place] [address], Ph. Attender: Merlene Sadler [facility] Medical 07/29/2020 12:00:00 AM EDT [place] ([facility]) Merlene Sadler [facility]: [address], [place] [address], Ph. Attender: Merlene Sadler [facility] Medical 07/29/2020 12:00:00 AM EDT [place] ([facility]) Merlene Sadler, [facility]: [address], [place] [address], Ph. Attender: Merlene Sadler [facility] Medical 07/29/2020 12:00:00 AM EDT [place] ([facility]) Merlene Sadler, [facility]: [address], [place] [address], Ph. Attender: Merlene Sadler [facility] Medical 07/29/2020 12:00:00 AM EDT [place] ([facility]) Merlene Sadler [facility]: [address], [place] [address], Ph. Attender: Merlene Sadler [facility] Medical 07/29/2020 12:00:00 AM EDT [place] ([facility]) Merlene Sadler, [facility]: [address], [place] [address], Ph. Attender: Merlene Sadler [facility] Medical 07/29/2020 12:00:00 AM EDT [place] ([facility]) Merlene Sadler, [facility]: [address], [place] [address], Ph. Attender: Merlene Sadler [facility] Medical 07/29/2020 12:00:00 AM EDT [place] ([facility]) Merlene Sadler BRANCH SERVICE ASSOCIATE: [address], [place] [address], Ph. Attender: Merlene Sadler [facility] Medical 07/29/2020 12:00:00 AM EDT [facility] ([facility]) Merlene Sadler, [employer]OCIATE: [address], [place] [address], Ph. Attender: Merlene Sadler [facility] [place] [facility] Medical 07/29/2020 12:00:00 AM EDT [facility] ([facility]) Merlene Sadler, [employer] SERV[employer] ASSOCIATE: [address], [place] [address], Ph. Attender: Merlene Sadler [facility] Medical 07/29/2020 12:00:00 AM EDT [facility] ([facility]) Merlene Sadler [facility]: [address], [address], [place] [address], Ph. Attender: Merlene Sadler [facility] Medical 07/29/2020 12:00:00 AM EDT [place] ([facility]) Merlene Sadler, [employer]IATE: [address], [address], [place] [address], Ph. Attender: Merlene Sadler [facility] Medical 07/22/2020 12:00:00 AM EDT [place] ([facility]) Herbert Melissa MD: [address] [place] [address], Ph. Attender: Herbert Melissa MD [facility] Medical 07/22/2020 12:00:00 AM EDT [place] ([facility]) Merlene Sadler, [facility]: [address], [address], [place] [address], Ph. Attender: Merlenemarie Sadler [facility] Medical 07/22/2020 12:00:00 AM EDT [facility] ([facility]) Herbert Melissa MD: [address] [place] [address], Ph. Attender: Herbert Melissa MD [facility] Medical 07/22/2020 12:00:00 AM EDT [facility] ([facility]) Merlene Sadler [facility]: [address], [address], [place] [address], Ph. Attender: Merlene Davisjeffrey [facility] Medical 07/22/2020 12:00:00 AM EDT [place] ([facility]) Herbert Melissa MD: [address] [place] [address], Ph. Attender: Herbert Melissa MD [facility] Medical 07/22/2020 12:00:00 AM EDT [place] ([facility]) Merlene Davisjeffrey [facility]: [address], [address], [place] [address], Ph. Attender: Merlene Ryanjeffrey [facility] Medical 07/22/2020 12:00:00 AM EDT [place] ([facility]) Herbert Melissa MD: [address] [place] [address], Ph. Attender: Herbert Melissa MD [facility] Medical 07/22/2020 12:00:00 AM EDT [facility] ([facility]) Merlene Sadler, [facility]: [address], [address], [place] [address], Ph. Attender: Merlene Sadler [facility] Medical 07/22/2020 12:00:00 AM EDT [place] ([facility]) Herbert Melissa MD: [address] [place] [address], Ph. Attender: Herbert Melissa MD [facility] Medical 07/22/2020 12:00:00 AM EDT [place] ([facility]) Merlene Sadler [facility]: [address], [address], [place] [address], Ph. Attender: Merlene Davisjeffrey [facility] Medical 07/22/2020 12:00:00 AM EDT [place] ([facility]) Herbert Melissa MD: [address] [place] [address], Ph. Attender: Herbert Melissa MD [facility] Medical 07/22/2020 12:00:00 AM EDT [place] ([facility]) Merlene Sadler, [facility]: [address], [address], [place] [address], Ph. Attender: Merlene Davisjeffrey [facility] Medical 07/22/2020 12:00:00 AM EDT [place] ([facility]) Herbert Melissa MD: [address] [place] [address], Ph. Attender: Herbert Melissa MD [facility] Medical 07/22/2020 12:00:00 AM EDT [place] ([facility]) Merlene Sadler, [facility]: [address], [address], [place] [address], Ph. Attender: Merlene Sadler [facility] Medical 07/22/2020 12:00:00 AM EDT [place] ([facility]) Herbert Melissa MD: [address] [place] [address], Ph. Attender: Herbert Melissa MD [facility] Medical 07/22/2020 12:00:00 AM EDT [place] ([facility]) Herbert Melissa MD: [address] [place] [address], Ph. Attender: Herbert Melissa MD [facility] Medical 07/22/2020 12:00:00 AM EDT [place] ([facility]) Merlene Sadler [employer] SERV[employer]IATE: [address], [address], [place] [address], Ph. Attender: Merlene Davisjeffrey [facility] Medical 07/22/2020 12:00:00 AM EDT [place] ([facility]) Herbert Melissa MD: [address] [place] [address], Ph. Attender: Herbert Melissa MD [facility] Medical 07/22/2020 12:00:00 AM EDT [place] ([facility]) Merlene Sadler [employer] SERVICE ASSOCIATE: [address], [address], [place] [address], Ph. Attender: Merlene Sadler [facility] Medical 07/22/2020 12:00:00 AM EDT [place] ([facility]) Herbert Melissa MD: [address] [place] [address], Ph. Attender: Herbert Melissa MD [facility] Medical 07/22/2020 12:00:00 AM EDT [facility] ([facility]) Merlene Sadler, [facility]: [address], [address], [place] [address], Ph. Attender: Merlene Sadler [facility] Medical 07/22/2020 12:00:00 AM EDT [place] ([facility]) Herbert Melissa MD: [address] [place] [address], Ph. Attender: Herbert Melissa MD [facility] Medical 07/22/2020 12:00:00 AM EDT [place] ([facility]) Merlene Sadler [facility]: [address], [address], [place] [address], Ph. Attender: Merlene Sadler [facility] Medical 07/22/2020 12:00:00 AM EDT [place] ([facility]) Merlene Sadler, [facility]: [address], [address], [place] [address], Ph. Attender: Merlene Sadler [facility] Medical 07/22/2020 12:00:00 AM EDT [place] ([facility]) Herbert Melissa MD: [address] [place] [address], Ph. Attender: Herbert Melissa MD [facility] Medical 07/22/2020 12:00:00 AM EDT [place] ([facility]) Merlene Sadler, [facility]: [address], [address], [place] [address], Ph. Attender: Merlene Sadler [facility] Medical 07/22/2020 12:00:00 AM EDT [place] ([facility]) Herbert Melissa MD: [address] , [place] [address], Ph. Attender: Herbert Melissa MD [facility] Medical 07/22/2020 12:00:00 AM EDT [place] ([facility]) Merlene Sadler, [employer] SERV[employer]IATE: [address], [address], [place] [address], Ph. Attender: Merlene Sadler [facility] Medical 07/01/2020 12:00:00 AM EDT [place] ([facility]) Merlene Sadler, [facility]: [address], [address], [place] [address], Ph. Attender: Merlene Sadler [facility] Medical 07/01/2020 12:00:00 AM EDT [place] ([facility]) Merlene Sadler, [facility]: [address], [address], [place] [address], Ph. Attender: Merlene Sadler [facility] Medical 07/01/2020 12:00:00 AM EDT [place] ([facility]) Merlene Sadler, [facility]: [address], [address], [place] [address], Ph. Attender: Merlene Sadler [facility] Medical 07/01/2020 12:00:00 AM EDT [place] ([facility]) Merlene Sadler, [facility]: [address], [address], [place] [address], Ph. Attender: Merlene Sadler [facility] Medical 07/01/2020 12:00:00 AM EDT [place] ([facility]) Merlene Sadler, [employer] SERV[employer]OCIATE: [address], [address], [place] [address], Ph. Attender: Merlene Sadler [facility] Medical 07/01/2020 12:00:00 AM EDT [place] ([facility]) Merlene Sadler, [employer] SERVICE ASSOCIATE: [address], [address], [place] [address], Ph. Attender: Merlene Sadler [facility] Medical 07/01/2020 12:00:00 AM EDT [place] ([facility]) Merlene Sadler, [employer] SERVICE ASSOCIATE: [address], [address], [place] [address], Ph. Attender: Merlene Sadler [facility] Medical 07/01/2020 12:00:00 AM EDT [place] ([facility]) Merlene Sadler, [employer] SERVICE ASSOCIATE: [address], [address], [place] [address], Ph. Attender: Merlene Sadler [facility] Medical 07/01/2020 12:00:00 AM EDT [place] ([facility]) Merlene Sadler, [employer] SERVICE ASSOCIATE: [address], [address], [place] [address], Ph. Attender: Merlene Sadler [facility] Medical 07/01/2020 12:00:00 AM EDT [place] ([facility]) Merlene Sadler, [employer] SERVICE ASSOCIATE: [address], [address], [place] [address], Ph. Attender: Merlene Sadler [facility] Medical 07/01/2020 12:00:00 AM EDT [place] ([facility]) Merlene Sadler, [employer] SERVICE ASSOCIATE: [address], [address], [place] [address], Ph. Attender: Merlene Sadler [facility] [place] Medical 07/01/2020 12:00:00 AM EDT [place] ([facility]) Merlene Sadler, BR[employer] SERVICE ASSOCIATE: [address], [address], [place] [address], Ph. Attender: Merlene Sadler [facility] Medical 07/01/2020 12:00:00 AM EDT [place] ([facility]) Merlene Sadler, [employer] SERVICE ASSOCIATE: [address], [address], [place] [address], Ph. Attender: Merlene Sadler [facility] Medical 07/01/2020 12:00:00 AM EDT [place] ([facility]) Merlene Sadler, BRAN[employer] SERVICE ASSOCIATE: [address], [address], [place] [address], Ph. Attender: Merlene Sadler [facility] Medical 07/01/2020 12:00:00 AM EDT [place] ([facility]) Merlene Sadler, BRAN[employer] SERVICE ASSOCIATE: [address], [address], [place] [address], Ph. Attender: Merlene Sadler [facility] Medical 06/22/2020 12:00:00 AM EDT [place] ([facility]) Merlene Sadler, [employer] SERVICE ASSOCIATE: [address], [address], [place] [address], Ph. Attender: Merlene Sadler [facility] Medical 06/22/2020 12:00:00 AM EDT [place] ([facility]) Merlene Sadler, BRANCH SERVICE ASSOCIATE: [address], [address], [place] [address], Ph. Attender: Merlene Sadler [facility] Medical 06/22/2020 12:00:00 AM EDT [place] ([facility]) Merlene Sadler, BRANCH SERVICE ASSOCIATE: [address], [address], [place] [address], Ph. Attender: Merlene Sadler [facility] Medical 06/22/2020 12:00:00 AM EDT [place] ([facility]) Merlene Sadler, BR[employer] SERVICE ASSOCIATE: [address], [address], [place] [address], Ph. Attender: Merlene Sadler [facility] Medical 06/22/2020 12:00:00 AM EDT [place] ([facility]) Merlene Sadler, [employer] SERVICE ASSOCIATE: [address], [address], [place] [address], Ph. Attender: Merlene Sadler [facility] Medical 06/22/2020 12:00:00 AM EDT [place] ([facility]) Merlene Sadler, [employer] SERVICE ASSOCIATE: [address], [address], [place] [address], Ph. Attender: Merlene Sadler [facility] Medical 06/22/2020 12:00:00 AM EDT [place] ([facility]) Merlene Sadler, [employer] SERVICE ASSOCIATE: [address], [address], [place] [address], Ph. Attender: Merlene Sadler [facility] Medical 06/22/2020 12:00:00 AM EDT [place] ([facility]) Merlene Sadler, [employer] SERVICE ASSOCIATE: [address], [address], [place] [address], Ph. Attender: Merlene Sadler [facility] Medical 06/22/2020 12:00:00 AM EDT [place] ([facility]) Merlene Sadler, [employer] SERVICE ASSOCIATE: [address], [address], [place] [address], Ph. Attender: Merlene Sadler [facility] Medical 06/22/2020 12:00:00 AM EDT [place] ([facility]) Merlene Sadler, [employer] SERVICE ASSOCIATE: [address], [address], [place] [address], Ph. Attender: Merlene Sadler [facility] Medical 06/22/2020 12:00:00 AM EDT [place] ([facility]) Merlene Sadler, [employer] SERVICE ASSOCIATE: [address], [address], [place] [address], Ph. Attender: Merlene Sadler [facility] Medical 06/22/2020 12:00:00 AM EDT [place] ([facility]) Merlene Sadler, BRANCH SERVICE ASSOCIATE: [address], [address], [place] [address], Ph. Attender: Merlene Sadler [facility] Medical 06/22/2020 12:00:00 AM EDT [place] ([facility]) Merlene Sadler, BRANCH SERVICE ASSOCIATE: [address], [address], [place] [address], Ph. Attender: Merlene Sadler [facility] Medical 06/22/2020 12:00:00 AM EDT [place] ([facility]) Merlene Sadler, [facility]: [address], [address], [place] [address], Ph. Attender: Merlene Sadler [facility] Medical 06/22/2020 12:00:00 AM EDT [place] ([facility]) Merlene Sadler, [employer] SERVICE ASSOCIATE: [address], [address], [place] [address], Ph. Attender: Merlene Sadler [facility] Medical 06/22/2020 12:00:00 AM EDT [place] ([facility]) Merlene Sadler, BRANCH SERVICE ASSOCIATE: [address], [address], [place] [address], Ph. Attender: Merlene Sadler [facility] Medical 06/17/2020 12:00:00 AM EDT [place] ([facility]) Merlene Sadler, BRANCH SERVICE ASSOCIATE: [address], [address], [place] [address], Ph. Attender: Merlene Sadler [facility] Medical 06/17/2020 12:00:00 AM EDT [facility] ([facility]) Merlene Sadler, BRANCH SERVICE ASSOCIATE: [address], [address], [place] [address], Ph. Attender: Merlene Sadler [facility] Medical 06/17/2020 12:00:00 AM EDT [place] ([facility]) Merlene Sadler, BRANCH SERVICE ASSOCIATE: [address], [address], [place] [address], Ph. Attender: Merlene Sadler [facility] Medical 06/17/2020 12:00:00 AM EDT [place] ([facility]) Merlene Sadler, [facility]: [address], [address], [place] [address], Ph. Attender: Merlene Sadler [facility] Medical 06/17/2020 12:00:00 AM EDT [place] ([facility]) Merlene Sadler, [employer] SERVICE ASSOCIATE: [address], [address], [place] [address], Ph. Attender: Merlene Sadler [facility] Medical 06/17/2020 12:00:00 AM EDT [place] ([facility]) Merlene Sadler, BRANCH SERVICE ASSOCIATE: [address], [address], [place] [address], Ph. Attender: Merlene Sadler [facility] Medical 06/17/2020 12:00:00 AM EDT [place] ([facility]) Merlene Sadler, [employer] SERVICE ASSOCIATE: [address], [address], [place] [address], Ph. Attender: Merlene Sadler [facility] Medical 06/17/2020 12:00:00 AM EDT [place] ([facility]) Mrelene Sadler BR[employer] SERVICE ASSOCIATE: [address], [address], [place] [address], Ph. Attender: Merlene Sadler [facility] Medical 06/17/2020 12:00:00 AM EDT [place] ([facility]) Merlene Sadler, BR[employer] SERVICE ASSOCIATE: [address], [address], [place] [address], Ph. Attender: Merlene Sadler [facility] Medical 06/17/2020 12:00:00 AM EDT [place] ([facility]) Merlene Sadler, [facility]: [address], [address], [place] [address], Ph. Attender: Merlene Sadler [facility] Medical 06/17/2020 12:00:00 AM EDT [place] ([facility]) Merlene Sadler BR[employer] SERVICE ASSOCIATE: [address], [address], [place] [address], Ph. Attender: Merlene Sadler [facility] Medical 06/17/2020 12:00:00 AM EDT [place] ([facility]) Merlene Sadler, [facility]: [address], [address], [place] [address], Ph. Attender: Merlene Sadler [facility] Medical 06/17/2020 12:00:00 AM EDT [place] ([facility]) Merlene Sadler, [facility]: [address], [address], [place] [address], Ph. Attender: Merlene Sadler [facility] Medical 06/17/2020 12:00:00 AM EDT [place] ([facility]) Merlene Sadler [facility]: [address], [address], [place] [address], Ph. Attender: Merlene Sadler [facility] Medical 06/17/2020 12:00:00 AM EDT [place] ([facility]) Merlene Sadler, [employer] SERVICE ASSOCIATE: [address], [address], [place] [address], Ph. Attender: Merlene Sadler [facility] Medical 06/17/2020 12:00:00 AM EDT [place] ([facility]) Merlene Sadler, [employer] SERVICE ASSOCIATE: [address], [address], [place] [address], Ph. Attender: Merlene Sadler [facility] Medical 06/17/2020 12:00:00 AM EDT [place] ([facility]) Outpatient Attender: Ruthie Sifuentes MD Main office - [facility] 05/20/2020 08:30:00 AM EDT MED[facility] ([facility]) OFFICE OUTPATIENT NEW 30 MINUTES Attender: Tucker Goldsmith MD Physic al Therapy 05/14/2020 09:30:00 AM EDT MEDJUAN RAMON ([facility]) LESLY TalamantesW-R: [address], [address], [place] [address], Ph. Attender: Sharon Bautista [facility] Medical 05/06/2020 12:00:00 AM EDT [place] ([facility]) LESLY TalamantesW-R: [address], [address], [place] [address], Ph. Attender: Sharon Bautista [facility] Medical 05/06/2020 12:00:00 AM EDT [place] ([facility]) LESLY TalamantesW-R: [address], [address], [place] [address], Ph. Attender: Sharon Bautista [facility] Medical 05/06/2020 12:00:00 AM EDT [place] ([facility]) LESLY TalamantesW-R: [address], [address], [place] [address], Ph. Attender: Sharon Bautista [facility] Medical 05/06/2020 12:00:00 AM EDT [place] ([facility]) LESLY TalamantesW-R: [address], [address], [place] [address], Ph. Attender: Sharon Megagueromarilyalan [facility] Medical 05/06/2020 12:00:00 AM EDT [place] ([facility]) LESLY TalamantesW-R: [address], [address], [place] [address], Ph. Attender: Sharon Westmarilyalan [facility] Medical 05/06/2020 12:00:00 AM EDT [place] ([facility]) LESLY TalamantesW-R: [address], [address], [place] [address], Ph. Attender: Sharon Bautista [facility] Medical 05/06/2020 12:00:00 AM EDT [place] ([facility]) LESLY TalamantesW-R: [address], [address], [place] [address], Ph. Attender: Sharon Bautista [facility] Medical 05/06/2020 12:00:00 AM EDT [place] ([facility]) LESLY TalamantesW-R: [address], [address], [place] [address], Ph. Attender: Sharon Bautista [facility] Medical 05/06/2020 12:00:00 AM EDT [place] ([facility]) LESLY TalamantesW-R: [address], [address], [place] [address], Ph. Attender: Sharon Bautista [facility] Medical 05/06/2020 12:00:00 AM EDT [place] ([facility]) SharonLELSY MccartneyW-R: [address], [address], [place] [address], Ph. Attender: Sharon Bautista [facility] Medical 05/06/2020 12:00:00 AM EDT [place] ([facility]) LESLY TalamantesW-R: [address], [address], [place] [address], Ph. Attender: Sharon Bautista [facility] Medical 05/06/2020 12:00:00 AM EDT [place] ([facility]) LESLY TalamantesW-R: [address], [address], [place] [address], Ph. Attender: Sharon Bautista [facility] Medical 05/06/2020 12:00:00 AM EDT [place] ([facility]) LESLY TalamantesW-R: [address], [address], [place] [address], Ph. Attender: Sharon Megagueromarilyalan [facility] Medical 05/06/2020 12:00:00 AM EDT [place] ([facility]) LESLY TalamantesW-R: [address], [address], [place] [address], Ph. Attender: Sharon Michele [facility] Medical 05/06/2020 12:00:00 AM EDT [place] ([facility]) LESLY TalamantesW-R: [address], [address], [place] [address], Ph. Attender: Sharon Bautista [facility] Medical 05/06/2020 12:00:00 AM EDT [place] ([facility]) SharonLESLY MccartneyW-R: [address], [address], [place] [address], Ph. Attender: Sharon Bautista [facility] Medical 05/06/2020 12:00:00 AM EDT [place] ([facility]) LESLY TalamantesW-R: [address], [place] [address], Ph. Attender: Sharon Bautista [facility] Medical 05/06/2020 12:00:00 AM EDT [place] ([facility]) Chayo Dickerson RPA-C: [address], [place], [place] [address], Ph. Attender: CHAYO DICKERSON [facility] Medical 05/03/2020 12:00:00 AM EDT [place] ([facility]) Chayo Dickerson RPA-C: [address], [place] [address], Ph. Attender: CHAYO DICKERSON [facility] Medical 05/03/2020 12:00:00 AM EDT [place] ([facility]) Chayo Dcikerson RPA-C: [address], [place] [address], Ph. Attender: CHAYO DICKERSON [facility] Medical 05/03/2020 12:00:00 AM EDT [place] ([facility]) Chayo Dickerson RPA-C: [address], [place] [address], Ph. Attender: CHAYO DICKERSON [facility] Medical 05/03/2020 12:00:00 AM EDT [place] ([facility]) Chayo Dickerson RPA-C: [address], [place] [address], Ph. Attender: CHAYO DICKERSON [facility] Medical 05/03/2020 12:00:00 AM EDT [place] ([facility]) Chayo Dickerson RPA-C: [address], [place] [address], Ph. Attender: CHAYO DICKERSON [facility] Medical 05/03/2020 12:00:00 AM EDT [place] ([facility]) Chayo Dickerson RPA-C: [address], [place] [address], Ph. Attender: CHAYO DICKERSON [facility] Medical 05/03/2020 12:00:00 AM EDT [place] ([facility]) Chayo Dickerson RPA-C: [address], [place] [address], Ph. Attender: CHAYO DICKERSON [facility] Medical 05/03/2020 12:00:00 AM EDT [place] ([facility]) Chayo Dickerson RPA-C: [address], [place] [address], Ph. Attender: CHAYO DICKERSON [facility] Medical 05/03/2020 12:00:00 AM EDT [place] ([facility]) Chayo Dickerson RPA-C: [address], [place] [address], Ph. Attender: CHAYO DICKERSON [facility] Medical 05/03/2020 12:00:00 AM EDT [place] ([facility]) Chayo Dickerson RPA-C: [address], [place] [address], Ph. Attender: CHAYO DICKERSON [facility] Medical 05/03/2020 12:00:00 AM EDT [place] ([facility]) Chayo Dickerson RPA-C: [address], [place] [address], Ph. Attender: CHAYO DICKERSON [facility] Medical 05/03/2020 12:00:00 AM EDT [place] ([facility]) Chayo Dickerson RPA-C: [address], [place] [address], Ph. Attender: CHAYO DICKERSON [facility] Medical 05/03/2020 12:00:00 AM EDT [place] ([facility]) Chayo Dickerson RPA-C: [address], [address], [place] [address], Ph. Attender: CHAYO DICKERSON [facility] Medical 05/03/2020 12:00:00 AM EDT [place] ([facility]) Chayo Dickerson RPA-C: [address], [address], [place] [address], Ph. Attender: [facility]ERSON [facility] Medical 05/03/2020 12:00:00 AM EDT [place] ([facility]) Chayo Dickerson RPA-C: [address], [address], [place] [address], Ph. Attender: CHAYO DICKERSON [facility] Medical 05/03/2020 12:00:00 AM EDT [place] ([facility]) Chayo Dickerson RPA-C: [address], [place] [address], Ph. Attender: CHAYO DICKERSON [facility] Medical 05/03/2020 12:00:00 AM EDT [place] ([facility]) Chayo Dickerson RPA-C: [address], [place] [address], Ph. Attender: CHAYO DICKERSON [facility] Medical 05/03/2020 12:00:00 AM EDT [place] ([facility]) Chayo Dickerson RPA-C: [address], [address], [place] [address], Ph. Attender: CHAYO DICKERSON [facility] Medical 05/03/2020 12:00:00 AM EDT [place] ([facility]) LESLY TalamantesW-R: [address], [place] [address], Ph. Attender: Sharon Bautista [facility] Medical 04/22/2020 12:00:00 AM EDT [place] ([facility]) LESLY TalamantesW-R: [address], [address], [place] [address], Ph. Attender: Sharon Bautista [facility] Medical 04/22/2020 12:00:00 AM EDT [place] ([facility]) SharonLESLY MccartneyW-R: [address], [address], [place] [address], Ph. Attender: Sharon Bautista [facility] Medical 04/22/2020 12:00:00 AM EDT [place] ([facility]) LESLY TalamantesW-R: [address], [place] [address], Ph. Attender: Sharon Bautista [facility] Medical 04/22/2020 12:00:00 AM EDT [place] ([facility]) LESLY TalamantesW-R: [address], [address], [place] [address], Ph. Attender: Sharon Bautista [facility] Medical 04/22/2020 12:00:00 AM EDT [place] ([facility]) LESLY TalamantesW-R: [address], [place] [address], Ph. Attender: Sharon Bautista [facility] Medical 04/22/2020 12:00:00 AM EDT [place] ([facility]) LESLY TalamantesW-R: [address], [place] [address], Ph. Attender: Sharon Bautista [facility] Medical 04/22/2020 12:00:00 AM EDT [place] ([facility]) LESLY TalamantesW-R: [address], [place] [address], Ph. Attender: Sharon Bautista [facility] Medical 04/22/2020 12:00:00 AM EDT [place] ([facility]) LESLY TalamantesW-R: [address], [place] [address], Ph. Attender: Sharon Bautista [facility] Medical 04/22/2020 12:00:00 AM EDT [place] ([facility]) LESLY TalamantesW-R: [address], [place] [address], Ph. Attender: Sharon Ayoubgueromarilyalan [facility] Medical 04/22/2020 12:00:00 AM EDT [place] ([facility]) LESLY TalamantesW-R: [address], [place] [address], Ph. Attender: Sharon Megagueromarilyalan [facility] Medical 04/22/2020 12:00:00 AM EDT [place] ([facility]) LESLY TalamantesW-R: [address], [place] [address], Ph. Attender: Sharonlouisa Westmarilyalan [facility] Medical 04/22/2020 12:00:00 AM EDT [place] ([facility]) LESLY TalamantesW-R: [address], [place] [address], Ph. Attender: Sharon Bautista [facility] Medical 04/22/2020 12:00:00 AM EDT [place] ([facility]) Sharon Low, COIN BOX COLLECTOR-R: [address], [place] [address], Ph. Attender: Sharon Bautista [facility] Medical 04/22/2020 12:00:00 AM EDT [place] ([facility]) Sharon LouiseLESLY saulW-R: [address], [address], [place] [address], Ph. Attender: Sharon Bautista [facility] Medical 04/22/2020 12:00:00 AM EDT [place] ([facility]) SharonLESLY MccartneyW-R: [address], [address], [place] [address], Ph. Attender: Sharon Bautista [facility] Medical 04/22/2020 12:00:00 AM EDT [place] ([facility]) SharonLESLY MccartneyW-R: [address], [address], [place] [address], Ph. Attender: Sharon Bautista [facility] Medical 04/22/2020 12:00:00 AM EDT [place] ([facility]) LESLY TalamantesW-R: [address], [place] [address], Ph. Attender: Sharon Bautista [facility] Medical 04/22/2020 12:00:00 AM EDT [place] ([facility]) LESLY TalamantesW-R: [address], [place] [address], Ph. Attender: Sharon Michele [facility] Medical 04/22/2020 12:00:00 AM EDT [place] ([facility]) Sharon Low, COIN BOX COLLECTOR-R: [address], [address], [place] [address], Ph. Attender: Sharon Bautista [facility] Medical 04/22/2020 12:00:00 AM EDT [place] ([facility]) Chayo Dickerson RPA-C: [address], [address], [place] [address], Ph. Attender: CHAYO DICKERSON [facility] Medical 04/16/2020 12:00:00 AM EST [place] ([facility]) MADDISON AdamsC: [address], [address], [place] [address], Ph. Attender: CHAYO DICKERSON [facility] Medical 04/16/2020 12:00:00 AM EST [place] ([facility]) MADDISON AdamsC: [address], [address], [place] [address], Ph. Attender: CHAYO DICKERSON [facility] Medical 04/16/2020 12:00:00 AM EST [place] ([facility]) MADDISON AdamsC: [address], [address], [place] [address], Ph. Attender: CHAYO DICKERSON [facility] Medical 04/16/2020 12:00:00 AM EST [place] ([facility]) MADDISON AdamsC: [address], [address], [place] [address], Ph. Attender: CHAYO DICKERSON [facility] Medical 04/16/2020 12:00:00 AM EST [place] ([facility]) Chayo Dickerson RPA-C: [address], [address], [place] [address], Ph. Attender: CHAYO DICKERSON [facility] Medical 04/16/2020 12:00:00 AM EST [place] ([facility]) Chayo Dickerson RPA-C: [address], [address], [place] [address], Ph. Attender: CHAYO DICKERSON [facility] Medical 04/16/2020 12:00:00 AM EST [place] ([facility]) MADDISON AdamsC: [address], [address], [place] [address], Ph. Attender: CHAYO DICKERSON [facility] Medical 04/16/2020 12:00:00 AM EST [place] ([facility]) MADDISON AdamsC: [address], [address], [place] [address], Ph. Attender: CHAYO DICKERSON [facility] Medical 04/16/2020 12:00:00 AM EST [place] ([facility]) Chayo Dickerson RPA-C: [address], [address], [place] [address], Ph. Attender: CHAYO DICKERSON [facility] Medical 04/16/2020 12:00:00 AM EST [place] ([facility]) Chayo Dickerson RPA-C: [address], [address], [place] [address], Ph. Attender: CHAYO DICKERSON [facility] Medical 04/16/2020 12:00:00 AM EST [place] ([facility]) Chayo Dickerson RPA-C: [address], [address], [place] [address], Ph. Attender: CHAYO DICKERSON [facility] Medical 04/16/2020 12:00:00 AM EST [place] ([facility]) Chayo Dickerson RPA-C: [address], [address], [place] [address], Ph. Attender: CHAYO DICKERSON [facility] Medical 04/16/2020 12:00:00 AM EST [place] ([facility]) Chayo Dickerson RPA-C: [address], [place] [address], Ph. Attender: CHAYO DICKERSON [facility] Medical 04/16/2020 12:00:00 AM EST [place] ([facility]) Chayo Dickerson RPA-C: [address], [address], [place] [address], Ph. Attender: CHAYO DICKERSON [facility] Medical 04/16/2020 12:00:00 AM EST [place] ([facility]) Chayo Dickerson RPA-C: [address], [address], [place] [address], Ph. Attender: CHAYO DICKERSON [facility] Medical 04/16/2020 12:00:00 AM EST [place] ([facility]) Chayo Dickerson RPA-C: [address], [place] [address], Ph. Attender: CHAYO DICKERSON [facility] Medical 04/16/2020 12:00:00 AM EST [place] ([facility]) Chayo Dickerson RPA-C: [address], [place] [address], Ph. Attender: CHAYO DICKERSON [facility] Medical 04/16/2020 12:00:00 AM EST [place] ([facility]) Chayo Dickerson RPA-C: [address], [place] [address], Ph. Attender: CHAYO DICKERSON [facility] Medical 04/16/2020 12:00:00 AM EST [place] ([facility]) Chayo Dickerson RPA-C: [address], [place] [address], Ph. Attender: CHAYO DICKERSON [facility] Medical 04/16/2020 12:00:00 AM EST [place] ([facility]) Chayo Dickerson RPA-C: [address], [address], [place] [address], Ph. Attender: CHAYO DICKERSON [facility] Medical 04/16/2020 12:00:00 AM EST [place] ([facility]) LESLY TalamantesW-R: [address], [place] [address], Ph. Attender: Sharon Bautista [facility] Medical 04/15/2020 12:00:00 AM EST [place] ([facility]) Sharon Low, COIN BOX COLLECTOR-R: [address], [address], [place] [address], Ph. Attender: Sharon Bautista [facility] Medical 04/15/2020 12:00:00 AM EST [place] ([facility]) SharonLESLY MccartneyW-R: [address], [address], [place] [address], Ph. Attender: Sharon Bautista [facility] Medical 04/15/2020 12:00:00 AM EST [place] ([facility]) LESLY TalamantesW-R: [address], [place] [address], Ph. Attender: Sharon Ayoubgueromarilyalan [facility] Medical 04/15/2020 12:00:00 AM EST [place] ([facility]) LESLY TalamantesW-R: [address], [place] [address], Ph. Attender: Sharon Barahonaalan [facility] Medical 04/15/2020 12:00:00 AM EST [place] ([facility]) LESLY TalamantesW-R: [address], [place] [address], Ph. Attender: Sharon Ayoubdiego [facility] Medical 04/15/2020 12:00:00 AM EST [place] ([facility]) LESLY TalamantesW-R: [address], [place] [address], Ph. Attender: Sharon Bautista [facility] Medical 04/15/2020 12:00:00 AM EST [place] ([facility]) LESLY TalamantesW-R: [address], [place] [address], Ph. Attender: Sharon Bautista [facility] Medical 04/15/2020 12:00:00 AM EST [place] ([facility]) Sharon LouiseLESLY saulW-R: [address], [place] [address], Ph. Attender: Sharon Bautista [facility] Medical 04/15/2020 12:00:00 AM EST [place] ([facility]) Sharon LouiseLESLY saulW-R: [address], [place] [address], Ph. Attender: Sharon Ayoubdiego [facility] Medical 04/15/2020 12:00:00 AM EST [place] ([facility]) Sharon LouiseLESLY saulW-R: [address], [place] [address], Ph. Attender: Sharon Ayoubgueromarilyalan [facility] Medical 04/15/2020 12:00:00 AM EST [place] ([facility]) LESLY TalamantesW-R: [address], [place] [address], Ph. Attender: Sharonlouisa Bautista [facility] Medical 04/15/2020 12:00:00 AM EST [place] ([facility]) LESLY TalamantseW-R: [address], [place] [address], Ph. Attender: Sharon Bautista [facility] Medical 04/15/2020 12:00:00 AM EST [place] ([facility]) Sharon LowLESLYW-R: [address], [place] [address], Ph. Attender: Sharon Bautista [facility] Medical 04/15/2020 12:00:00 AM EST [place] ([facility]) Sharon LouiseLESLY saulW-R: [address], [address], [place] [address], Ph. Attender: Sharon Bautista [facility] Medical 04/15/2020 12:00:00 AM EST [place] ([facility]) Sharon LouiseLESLY saulW-R: [address], [address], [place] [address], Ph. Attender: Sharon Jennamarilyalan [facility] Medical 04/15/2020 12:00:00 AM EST [place] ([facility]) Sharon LouiseLESLY saulW-R: [address], [place] [address], Ph. Attender: Sharon Michele [facility] Medical 04/15/2020 12:00:00 AM EST [place] ([facility]) LESLY TalamantesW-R: [address], [place] [address], Ph. Attender: Sharon Michele [facility] Medical 04/15/2020 12:00:00 AM EST [place] ([facility]) SharonLESLY MccartneyW-R: [address], [place] [address], Ph. Attender: Sharon Bautista [facility] Medical 04/15/2020 12:00:00 AM EST [place] ([facility]) Sharon Low, COIN BOX COLLECTOR-R: [address], [place] [address], Ph. Attender: Sharon Ayoubgueromeg [facility] Medical 04/15/2020 12:00:00 AM EST [place] ([facility]) Sharon Low, COIN BOX COLLECTOR-R: [address], [place] [address], Ph. Attender: Sharon Jennameg [facility] Medical 04/15/2020 12:00:00 AM EST [place] ([facility]) Sharon LouiseLESLY saulW-R: [address], [place] [address], Ph. Attender: Sharonlouisa Bautista [facility] Medical 04/15/2020 12:00:00 AM EST [place] ([facility]) Chayo Dickerson RPA-C: [address], [address], [place] [address], Ph. Attender: CHAYO DICKERSON [facility] Medical 04/02/2020 12:00:00 AM EST [place] ([facility]) Chayo Dickerson RPA-C: [address], [place] [address], Ph. Attender: CHAYO DICKERSON [facility] Medical 04/02/2020 12:00:00 AM EST [place] ([facility]) Chayo Dickerson RPA-C: [address], [place] [address], Ph. Attender: CHAYO DICKERSON [facility] Medical 04/02/2020 12:00:00 AM EST [place] ([facility]) Chayo Dickerson RPA-C: [address], [place] [address], Ph. Attender: CHAYO DICKERSON [facility] Medical 04/02/2020 12:00:00 AM EST [place] ([facility]) Chayo Dickerson RPA-C: [address], [place] [address], Ph. Attender: CHAYO DICKERSON [facility] Medical 04/02/2020 12:00:00 AM EST [place] ([facility]) Chayo Dickerson RPA-C: [address], [place] [address], Ph. Attender: CHAYO DICKERSON [facility] Medical 04/02/2020 12:00:00 AM EST [place] ([facility]) Chayo Dickerson RPA-C: [address], [place] [address], Ph. Attender: CHAYO DICKERSON [facility] Medical 04/02/2020 12:00:00 AM EST [place] ([facility]) Chayo Dickerson RPA-C: [address], [place] [address], Ph. Attender: CHAYO DICKERSON [facility] Medical 04/02/2020 12:00:00 AM EST [place] ([facility]) Chayo Dickerson RPA-C: [address], [place] [address], Ph. Attender: CHAYO DICKERSON [facility] Medical 04/02/2020 12:00:00 AM EST [place] ([facility]) Chayo Dickerson RPA-C: [address], [place] [address], Ph. Attender: CHAYO DICKERSON [facility] Medical 04/02/2020 12:00:00 AM EST [place] ([facility]) Chayo Dickerson RPA-C: [address], [place] [address], Ph. Attender: CHAYO DICKERSON [facility] Medical 04/02/2020 12:00:00 AM EST [place] ([facility]) MADDISON AdamsC: [address], [place] [address], Ph. Attender: CHAYO DICKERSON [facility] Medical 04/02/2020 12:00:00 AM EST [place] ([facility]) Chayo Dickerson RPA-C: [address], [place] [address], Ph. Attender: CHAYO DICKERSON [facility] Medical 04/02/2020 12:00:00 AM EST [place] ([facility]) Chayo Dickerson RPA-C: [address], [place] [address], Ph. Attender: CHAYO DICKERSON [facility] Medical 04/02/2020 12:00:00 AM EST [place] ([facility]) Chayo Dickerson RPA-C: [address], [place] [address], Ph. Attender: CHAYO DICKERSON [facility] Medical 04/02/2020 12:00:00 AM EST [place]ILDA ([facility]) MADDISON AdamsC: [address], [address], [place] [address], Ph. Attender: CHAYO DICKERSON [facility] Medical 04/02/2020 12:00:00 AM EST HILDA ([facility]) MADDISON AdamsC: [address], [address], [place] [address], Ph. Attender: CHAYO DICKERSON [facility] Medical 04/02/2020 12:00:00 AM EST HILDA ([facility]) MADDISON AdamsC: [address], [address], [place] [address], Ph. Attender: CHAYO DICKERSON [facility] Medical 04/02/2020 12:00:00 AM EST HILDA ([facility]) MADDISON AdamsC: [address], [address], [place] [address], Ph. Attender: CHAYO DICKERSON [facility] Medical 04/02/2020 12:00:00 AM EST HILDA ([facility]) MADDISON AdamsC: [address], [address], [place] [address], Ph. Attender: CHAYO DICKERSON [facility] Medical 04/02/2020 12:00:00 AM EST HILDA ([facility]) Chayo Dickerson, RPA-C: [address], [address], [place] [address], Ph. Attender: CHAYO DICKERSON [facility] Medical 04/02/2020 12:00:00 AM EST HILDA ([facility]) Chayo Dickerson RPA-C: [address], [address], [place] [address], Ph. Attender: CHAYO DICKERSON [facility] Medical 04/02/2020 12:00:00 AM EST HILDA ([facility]) Chayo Dickerson RPA-C: [address], [place] [address], Ph. Attender: CHAYO DICKERSON [facility] Medical 04/02/2020 12:00:00 AM EST HILDA ([facility]) Merlenemarie Sadler, [facility]: [address], [place] [address], Ph. Attender: Merlenemarie Sadler [facility] Medical 03/05/2020 12:00:00 AM EST HILDA ([facility]) Merlene Sadler [facility]: [address], [place] [address], Ph. Attender: Merlene Sadler [facility] Medical 03/05/2020 12:00:00 AM EST HILDA ([facility]) Merlene Sadler [facility]: [address], [place] [address], Ph. Attender: Merlene Sadler [facility] Medical 03/05/2020 12:00:00 AM EST HILDA ([facility]) Merlene Sadler [facility]: [address], [place] [address], Ph. Attender: Merlene Sadler [facility] Medical 03/05/2020 12:00:00 AM EST HILDA ([facility]) Merlene Sadler, [employer]: [address], [place] [address], Ph. Attender: Merlene Sadler [facility] Medical 03/05/2020 12:00:00 AM EST HILDA ([facility]) Merlene Sadler [facility]: [address], [place] [address], Ph. Attender: Merlene Sadler [facility] Medical 03/05/2020 12:00:00 AM EST HILDA ([facility]) Merlene Sadler, [facility]: [address], [place] [address], Ph. Attender: Merlene Sadler [facility] Medical 03/05/2020 12:00:00 AM EST HILDA ([facility]) Merlene Sadler [facility]: [address], [place] [address], Ph. Attender: Merlene Sadler [facility] Medical 03/05/2020 12:00:00 AM EST HILDA ([facility]) Merlene Sadler [facility]: [address], [place] [address], Ph. Attender: Merlene Sadler [facility] Medical 03/05/2020 12:00:00 AM EST HILDA ([facility]) Merlene Sadler, [employer]: [address], [place] [address], Ph. Attender: Merlene Sadler [facility] Medical 03/05/2020 12:00:00 AM EST HILDA ([facility]) Merlene Sadler, [employer]: [address], [place] [address], Ph. Attender: Merlene Sadler [facility] Medical 03/05/2020 12:00:00 AM EST HILDA ([facility]) Merlene Sadler, [facility]: [address], [place] [address], Ph. Attender: Merlene Sadler [facility] Medical 03/05/2020 12:00:00 AM EST HILDA ([facility]) Merlene Sadler, [facility]: [address], [place] [address], Ph. Attender: Merlene Sadler [facility] Medical 03/05/2020 12:00:00 AM EST HILDA ([facility]) Merlene Sadler, [employer]: [address], [place] [address], Ph. Attender: Merlene Sadler [facility] Medical 03/05/2020 12:00:00 AM EST HILDA ([facility]) Merlene Sadler, [facility]: [address], [place] [address], Ph. Attender: Merlene Sadler [facility] Medical 03/05/2020 12:00:00 AM EST HILDA ([facility]) Merlene Sadler, [employer]: [address], [place] [address], Ph. Attender: Merlene Sadler [facility] Medical 03/05/2020 12:00:00 AM EST HILDA ([facility]) Merlene Sadler, [employer]: [address], [place] [address], Ph. Attender: Merlene Sadler [facility] Medical 03/05/2020 12:00:00 AM EST HILDA ([facility]) Merlene Sadler, [employer]: [address], [place] [address], Ph. Attender: Merlene Sadler [facility] Medical 03/05/2020 12:00:00 AM EST HILDA ([facility]) Merlene Sadler, [employer]: [address], [place] [address], Ph. Attender: Merlene Sadler [facility] Medical 03/05/2020 12:00:00 AM EST HILDA ([facility]) Merlene Sadler, [employer]: [address], [place] [address], Ph. Attender: Merlene Sadler [facility] Medical 03/05/2020 12:00:00 AM EST HILDA ([facility]) Merlene Sadler, [employer]: [address], [place] [address], Ph. Attender: Merlene Sadler [facility] Medical 03/05/2020 12:00:00 AM EST HILDA ([facility]) Merlene Sadler, [employer]: [address], [place] [address], Ph. Attender: Merlene Sadler [facility] Medical 03/05/2020 12:00:00 AM EST HILDA ([facility]) Merlene Sadler, [employer]: [address], [place] [address], Ph. Attender: Merlene Sadler [facility] Medical 03/05/2020 12:00:00 AM EST HILDA ([facility]) Merlene Sadler, [employer]: [address], [place] [address], Ph. Attender: Merlene Sadler [facility] Medical 03/05/2020 12:00:00 AM EST HILDA ([facility]) Merlene Sadler [employer]: [address], [place] [address], Ph. Attender: Merlene Sadler [facility] Medical 02/20/2020 12:00:00 AM EST HILDA ([facility]) Merlene Sadler, [employer]: [address], [place] [address], Ph. Attender: Merlene Sadler [facility] Medical 02/20/2020 12:00:00 AM EST HILDA ([facility]) Merlene Sadler [employer]: [address], [place] [address], Ph. Attender: Merlene Sadler [facility] Medical 02/20/2020 12:00:00 AM EST HILDA ([facility]) Merlene Sadler, [employer]: [address], [place] [address], Ph. Attender: Merlene Sadler [facility] Medical 02/20/2020 12:00:00 AM EST HILDA ([facility]) Merlene Sadler, [employer]: [address], [place] [address], Ph. Attender: Merlene Sadler [facility] Medical 02/20/2020 12:00:00 AM EST HILDA ([facility]) Merlene Sadler, [employer]: [address], [place] [address], Ph. Attender: Merlene Sadler [facility] Medical 02/20/2020 12:00:00 AM EST HILDA ([facility]) Merlene Sadler, [employer]: [address], [place] [address], Ph. Attender: Merlene Sadler [facility] Medical 02/20/2020 12:00:00 AM EST HILDA ([facility]) Merlene Sadler, [employer]: [address], [place] [address], Ph. Attender: Merlene Sadler [facility] Medical 02/20/2020 12:00:00 AM EST HILDA ([facility]) Merlene Sadler, [employer]: [address], [place] [address], Ph. Attender: Merlene Sadler [facility] Medical 02/20/2020 12:00:00 AM EST HILDA ([facility]) Merlene Sadler, [employer]: [address], [place] [address], Ph. Attender: Merlene Sadler [facility] Medical 02/20/2020 12:00:00 AM EST HILDA ([facility]) Merlene Sadler, [facility]: [address], [place] [address], Ph. Attender: Merlene Sadler [facility] Medical 02/20/2020 12:00:00 AM EST HILDA ([facility]) Merlene Sadler, [employer]: [address], [place] [address], Ph. Attender: Merlene Sadler [facility] Medical 02/20/2020 12:00:00 AM EST HILDA ([facility]) Merlene Sadler, [facility]: [address], [place] [address], Ph. Attender: Merlene Sadler [facility] Medical 02/20/2020 12:00:00 AM EST HILDA ([facility]) Merlene Sadler, [facility]: [address], [place] [address], Ph. Attender: Merlene Sadler [facility] Medical 02/20/2020 12:00:00 AM EST HILDA ([facility]) Merlene Sadler, [facility]: [address], [place] [address], Ph. Attender: Merlene Sadler [facility] Medical 02/20/2020 12:00:00 AM EST HILDA ([facility]) Merlene Sadler, [employer]: [address], [place] [address], Ph. Attender: Merlene Sadler [facility] Medical 02/20/2020 12:00:00 AM EST HILDA ([facility]) Merlene Sadler [employer]: [address], [place] [address], Ph. Attender: Merlene Sadler [facility] Medical 02/20/2020 12:00:00 AM EST HILDA ([facility]) Merleen Sadler, [employer]: [address], [place] [address], Ph. Attender: Merlene Sadler [facility] Medical 02/20/2020 12:00:00 AM EST HILDA ([facility]) Merlene Sadler [employer]: [address], [place] [address], Ph. Attender: Merlene Sadler [facility] Medical 02/20/2020 12:00:00 AM EST HILDA ([facility]) Merlene Sadler, [employer]: [address], [place] [address], Ph. Attender: Merlene Sadler [facility] Medical 02/20/2020 12:00:00 AM EST HILDA ([facility]) Merlene Sadler, [employer]: [address], [place] [address], Ph. Attender: Merlene Sadler [facility] Medical 02/20/2020 12:00:00 AM EST HILDA ([facility]) Merlene Sadler, [employer]: [address], [place] [address], Ph. Attender: Merlene Sadler [facility] Medical 02/20/2020 12:00:00 AM EST HILDA ([facility]) Merlene Sadler, [employer]: [address], [place] [address], Ph. Attender: Merlene Sadler [facility] Medical 02/20/2020 12:00:00 AM EST HILDA ([facility]) Merlene Sadler, [employer]: [address], [place] [address], Ph. Attender: Merlene Sadler [facility] Medical 02/20/2020 12:00:00 AM EST HILDA ([facility]) Merlene Sadler, [employer]: [address], [place] [address], Ph. Attender: Merlene Sadler [facility] Medical 02/20/2020 12:00:00 AM EST HILDA ([facility]) Terry Quiroga RPA-C: [address], [place] [address], Ph. Attender: TERRY QUIROGA RPA-C [facility] Medical 02/02/2020 12:00:00 AM EST HILDA ([facility]) Merlene Sadler, [employer]: [address], [place] [address], Ph. Attender: Merlene Sadler [facility] Medical 02/02/2020 12:00:00 AM EST HILDA ([facility]) Terry Quiroga RPA[facility]C: [address], [place] [address], Ph. Attender: TERRY QUIROGA RPA-C [facility] Medical 02/02/2020 12:00:00 AM EST HILDA ([facility]) Merlene Sadler, [employer]: [address], [place] [address], Ph. Attender: Merlene Sadler [facility] Medical 02/02/2020 12:00:00 AM EST HILDA ([facility]) Terry Quiroga R[facility]C: [address], [place] [address], Ph. Attender: TERRY QUIROGA RPA-C [facility] Medical 02/02/2020 12:00:00 AM EST HILDA ([facility]) Merlene Sadler, [employer]: [address], [place] [address], Ph. Attender: Merlene Sadler [facility] Medical 02/02/2020 12:00:00 AM EST HILDA ([facility]) Terry Quiroga RPA-C: [address], [place] [address], Ph. Attender: ETRRY QUIROGA RPA-C [facility] Medical 02/02/2020 12:00:00 AM EST HILDA ([facility]) Merlene Sadler, [employer]: [address], [place] [address], Ph. Attender: Merlene Sadler [facility] Medical 02/02/2020 12:00:00 AM EST HILDA ([facility]) Terry Quiroga RPA-C: [address], [place] [address], Ph. Attender: TERRY QUIROGA RPA-C [facility] Medical 02/02/2020 12:00:00 AM EST HILDA ([facility]) Merlene Sadler, [employer]: [address], [place] [address], Ph. Attender: Merlene Sadler [facility] Medical 02/02/2020 12:00:00 AM EST HILDA ([facility]) Terry Quiroga RPA-C: [address], [place] [address], Ph. Attender: TERRY QUIROGA RPA-C [facility] Medical 02/02/2020 12:00:00 AM EST HILDA ([facility]) Merlene Sadler, [facility]: [address], [place] [address], Ph. Attender: Merlene Sadler [facility] Medical 02/02/2020 12:00:00 AM EST HILDA ([facility]) Terry Quiroga RPA-C: [address], [place] [address], Ph. Attender: TERRY QUIROGA RPA-C [facility] Medical 02/02/2020 12:00:00 AM EST HILDA ([facility]) Merlene Sadler, [facility]: [address], [place] [address], Ph. Attender: Merlene Sadler [facility] Medical 02/02/2020 12:00:00 AM EST HILDA ([facility]) Terry Quiroga RPA-C: [address], [place] [address], Ph. Attender: TERRY QUIROGA RPA-C [facility] Medical 02/02/2020 12:00:00 AM EST HILDA ([facility]) Merlene Sadler, [facility]: [address], [place] [address], Ph. Attender: Merlene Sadler [facility] Medical 02/02/2020 12:00:00 AM EST HILDA ([facility]) Terry Quiroga RPA-C: [address], [place] [address], Ph. Attender: TERRY QUIROGA RPA-C [facility] Medical 02/02/2020 12:00:00 AM EST HILDA ([facility]) Merlene Sadler, [facility]: [address], [place] [address], Ph. Attender: Merlene Sadler [facility] Medical 02/02/2020 12:00:00 AM EST HILDA ([facility]) Terry Quiroga RPA-C: [address], [place] [address], Ph. Attender: TERRY WASHBURNC [facility] Medical 02/02/2020 12:00:00 AM EST HILDA ([facility]) Merlene Sadler, [facility]: [address], [place] [address], Ph. Attender: Merlene Sadler [facility] Medical 02/02/2020 12:00:00 AM EST HILDA ([facility]) Terry Quiroga RPA-C: [address], [place] [address], Ph. Attender: TERRY QUIROGA RPA-C [facility] Medical 02/02/2020 12:00:00 AM EST HILDA ([facility]) Merlene Sadler, [employer]: [address], [place] [address], Ph. Attender: Merlene Sadler [facility] Medical 02/02/2020 12:00:00 AM EST HILDA ([facility]) Terry Quiroga RPA-C: [address], [place] [address], Ph. Attender: TERRY QUIROGA RPA-C [facility] Medical 02/02/2020 12:00:00 AM EST HILDA ([facility]) Merlene Sadler, [facility]: [address], [place] [address], Ph. Attender: Merlene Sadler [facility] Medical 02/02/2020 12:00:00 AM EST HILDA ([facility]) Terry Quiroga RPA-C: [address], [place] [address], Ph. Attender: TERRY QUIROGA RPA-C [facility] Medical 02/02/2020 12:00:00 AM EST HILDA ([facility]) Merlene Sadler, [employer]: [address], [place] [address], Ph. Attender: Merlene Sadler [facility] Medical 02/02/2020 12:00:00 AM EST HILDA ([facility]) Terry Quiroga RPA-C: [address], [place] [address], Ph. Attender: TERRY QUIROGA RPA-C [facility] Medical 02/02/2020 12:00:00 AM EST HILDA ([facility]) Merlene Sadler, [facility]: [address], [place] [address], Ph. Attender: Merlene Sadler [facility] Medical 02/02/2020 12:00:00 AM EST HILDA ([facility]) Terry Quiroga RPA-C: [address], [place] [address], Ph. Attender: TERRY WASH[facility] Medical 02/02/2020 12:00:00 AM EST HILDA ([facility]) Merlene Sadler [facility]: [address], [place] [address], Ph. Attender: Merlene Sadler [facility] Medical 02/02/2020 12:00:00 AM EST HILDA ([facility]) Terry Quiroga RPA-C: [address], [place] [address], Ph. Attender: TERRY WASHBURNC [facility] Medical 02/02/2020 12:00:00 AM EST HILDA ([facility]) Merlene Sadler, [facility]: [address], [place] [address], Ph. Attender: Merlene Sadler [facility] Medical 02/02/2020 12:00:00 AM EST HILDA ([facility]) Terry Quiroga RPA-C: [address], [place] [address], Ph. Attender: TERRY QUIROGA RPA-C [facility] Medical 02/02/2020 12:00:00 AM EST HILDA ([facility]) Merlene Sadler, [employer]: [address], [place] [address], Ph. Attender: Merlene Sadler [facility] Medical 02/02/2020 12:00:00 AM EST HILDA ([facility]) Terry Quiroga RPA-C: [address], [place] [address], Ph. Attender: TERRY QUIROGA RPA-C [facility] Medical 02/02/2020 12:00:00 AM EST HILDA ([facility]) Merlene Sadler, [facility]: [address], [place] [address], Ph. Attender: Merlene Sadler [facility] Medical 02/02/2020 12:00:00 AM EST HILDA ([facility]) Terry Quiroga RPA-C: [address], [place] [address], Ph. Attender: TERRY QUIROGA RPA-C [facility] Medical 02/02/2020 12:00:00 AM EST HILDA ([facility]) Merlene Sadler, [employer]: [address], [place] [address], Ph. Attender: Merlene Sadler [facility] Medical 02/02/2020 12:00:00 AM EST HILDA ([facility]) Terry Quiroga RPA-C: [address], [place] [address], Ph. Attender: TERRY QUIROGA RPA-C [facility] Medical 02/02/2020 12:00:00 AM EST HILDA ([facility]) Merlene Sadler, [employer]: [address], [address], [place] [address], Ph. Attender: Merlene Sadler [facility] Medical 02/02/2020 12:00:00 AM EST HILDA ([facility]) Terry Quiroga RPA-C: [address], [address], [place] [address], Ph. Attender: TERRY QUIROGA RPA-C [facility] Medical 02/02/2020 12:00:00 AM EST HILDA ([facility]) Merlene Sadler [facility]: [address], [address], [place] [address], Ph. Attender: Merlene Sadler [facility] Medical 02/02/2020 12:00:00 AM EST HILDA ([facility]) Terry Quiroga RPA-C: [address], [address], [place] [address], Ph. Attender: TERRY QUIROGA RPA-C [facility] Medical 02/02/2020 12:00:00 AM EST HILDA ([facility]) Merlene Sadler, [facility]: [address], [address], [place] [address], Ph. Attender: Merlene Sadler [facility] Medical 02/02/2020 12:00:00 AM EST HILDA ([facility]) Terry Quiroga RPA-C: [address], [address], [place] [address], Ph. Attender: TERRY QUIROGA RPA-C [facility] Medical 02/02/2020 12:00:00 AM EST [facility] [facility]) Merlene Sadler, BRANCH SERVICE ASSOCIATE: [address], [place] [address], Ph. Attender: Merlene Sadler [facility] Medical 02/02/2020 12:00:00 AM EST HILDA ([facility]) Terry Quiroga RPA-C: [address], [place] [address], Ph. Attender: TERRY QUIROGA RPA-C [facility] Medical 02/02/2020 12:00:00 AM EST HILDA ([facility]) Merlene Sadler, [facility]: [address], [place] [address], Ph. Attender: Merlene Sadler [facility] Medical 02/02/2020 12:00:00 AM EST HILDA ([facility]) Terry Quiroga RPA-C: [address], [place] [address], Ph. Attender: TERRY QUIROGA RPA-C [facility] Medical 02/02/2020 12:00:00 AM EST HILDA ([facility]) Merlene Sadler, BRANCH SERVICE ASSOCIATE: [address], [place] [address], Ph. Attender: Merlene Sadler [facility] Medical 02/02/2020 12:00:00 AM EST HILDA ([facility]) Terry Quiroga RPA-C: [address], [place] [address], Ph. Attender: TERRY QUIROGA RPA-C [facility] Medical 02/02/2020 12:00:00 AM EST HILDA ([facility]) Merlene Sadler, BRANCH SERVICE ASSOCIATE: [address], [place] [address], Ph. Attender: Merlene Sadler [facility] Medical 02/02/2020 12:00:00 AM EST HILDA ([facility]) Terry Quiroga, RPA-C: [address], [place] [address], Ph. Attender: TERRY QUIROGA RPA-C [facility] Medical 02/02/2020 12:00:00 AM EST HILDA ([facility]) Merlene Sadler, [facility]: [address], [place] [address], Ph. Attender: Merlene Sadler [facility] Medical 02/02/2020 12:00:00 AM EST HILDA ([facility]) Merlene Sadler, BRANCH SERVICE ASSOCIATE: [address], [place] [address], Ph. Attender: Merlene Sadler [facility] Medical 01/28/2020 12:00:00 AM EST HILDA ([facility]) Merlene Sadler, BRANCH SERVICE ASSOCIATE: [address], [place] [address], Ph. Attender: Merlene Sadler [facility] Medical 01/28/2020 12:00:00 AM EST HILDA ([facility]) Merlene Sadler, BRANCH SERVICE ASSOCIATE: [address], [place] [address], Ph. Attender: Merlene Sadler [facility] Medical 01/28/2020 12:00:00 AM EST HILDA ([facility]) Merlene Sadler, BRANCH SERVICE ASSOCIATE: [address], [place] [address], Ph. Attender: Merlene Sadler [facility] Medical 01/28/2020 12:00:00 AM EST HILDA ([facility]) Merlene Sadler, BRANCH SERVICE ASSOCIATE: [address], [place] [address], Ph. Attender: Merlene Sadler [facility] Medical 01/28/2020 12:00:00 AM EST HILDA ([facility]) Merlene Sadler, BRANCH SERVICE ASSOCIATE: [address], [place] [address], Ph. Attender: Merlene Sadler [facility] Medical 01/28/2020 12:00:00 AM EST HILDA ([facility]) Merlene Sadler, BRANCH SERVICE ASSOCIATE: [address], [place] [address], Ph. Attender: Merlene Sadler [facility] Medical 01/28/2020 12:00:00 AM EST HILDA ([facility]) Merlene Sadler, BRANCH SERVICE ASSOCIATE: [address], [place] [address], Ph. Attender: Merlene Sadler [facility] Medical 01/28/2020 12:00:00 AM EST HILDA ([facility]) Merlene Sadler, BRANCH SERVICE ASSOCIATE: [address], [place] [address], Ph. Attender: Merlene Sadler [facility] Medical 01/28/2020 12:00:00 AM EST HILDA ([facility]) Merlene Sadler [facility]: [address], [place] [address], Ph. Attender: Merlene Sadler [facility] Medical 01/28/2020 12:00:00 AM EST HILDA ([facility]) Merlene Sadler, [facility]: [address], [place] [address], Ph. Attender: Merlene Sadler [facility] Medical 01/28/2020 12:00:00 AM EST HILDA ([facility]) Merlene Sadler, [facility]: [address], [place] [address], Ph. Attender: Merlene Sadler [facility] Medical 01/28/2020 12:00:00 AM EST HILDA ([facility]) Merlene Sadler, [facility]: [address], [place] [address], Ph. Attender: Merlene Sadler [facility] Medical 01/28/2020 12:00:00 AM EST HILDA ([facility]) Merlene Sadler, [facility]: [address], [place] [address], Ph. Attender: Merlene Sadler [facility] Medical 01/28/2020 12:00:00 AM EST HILDA ([facility]) Merlene Sadler, [facility]: [address], [place] [address], Ph. Attender: Merlene Sadler [facility] Medical 01/28/2020 12:00:00 AM EST HILDA ([facility]) Merlene Sadler, [facility]: [address], [place] [address], Ph. Attender: Merlene Sadler [facility] Medical 01/28/2020 12:00:00 AM EST HILDA ([facility]) Merlene Sadler, BRANCH SERVICE ASSOCIATE: [address], [place] [address], Ph. Attender: Merlene Sadler [facility] Medical 01/28/2020 12:00:00 AM EST HILDA ([facility]) Merlene Sadler, BRANCH SERVICE ASSOCIATE: [address], [place] [address], Ph. Attender: Merlene Sadler [facility] Medical 01/28/2020 12:00:00 AM EST HILDA ([facility]) Merlene Sadler, [facility]: [address], [place] [address], Ph. Attender: Merlene Sadler [facility] Medical 01/28/2020 12:00:00 AM EST HILDA ([facility]) Merlene Sadler, [facility]: [address], [place] [address], Ph. Attender: Merlene Sadler [facility] Medical 01/28/2020 12:00:00 AM EST HILDA ([facility]) Merlene Sadler, [facility]: [address], [place] [address], Ph. Attender: Merlene Sadler [facility] Medical 01/28/2020 12:00:00 AM EST HILDA ([facility]) Merlene Sadler, BRANCH SERVICE ASSOCIATE: [address], [place] [address], Ph. Attender: Merlene Sadler [facility] Medical 01/28/2020 12:00:00 AM EST HILDA ([facility]) Merlene Sadler, BRANCH SERVICE ASSOCIATE: [address], [place] [address], Ph. Attender: Merlene Sadler [facility] Medical 01/28/2020 12:00:00 AM EST HILDA ([facility]) Merlene Sadler BRANCH SERVICE ASSOCIATE: [address], [place] [address], Ph. Attender: Merleen Sadler [facility] Medical 01/28/2020 12:00:00 AM EST HILDA ([facility]) Merlene Sadler, BRANCH SERVICE ASSOCIATE: [address], [place] [address], Ph. Attender: Merlene Sadler [facility] Medical 01/28/2020 12:00:00 AM EST HILDA ([facility]) Merlene Sadler BRANCH SERVICE ASSOCIATE: [address], [place] [address], Ph. Attender: Merlene Sadler [facility] Medical 01/28/2020 12:00:00 AM EST HILDA ([facility]) Merlene Sadler BRANCH SERVICE ASSOCIATE: [address], [place] [address], Ph. Attender: Merlene Sadler [facility] Medical 01/28/2020 12:00:00 AM EST HILDA ([facility]) Merlene Sadler, BRANCH SERVICE ASSOCIATE: [address], [place] [address], Ph. Attender: Merlene Sadler [facility] Medical 01/28/2020 12:00:00 AM EST HILDA ([facility]) Merlene Sadler, BRANCH SERVICE ASSOCIATE: [address], [place] [address], Ph. Attender: Merlene Sadler [facility] Medical 01/20/2020 12:00:00 AM EST HILDA ([facility]) Merlene Sadler, [facility]: [address], [place] [address], Ph. Attender: Merlene Sadler [facility] Medical 01/20/2020 12:00:00 AM EST HILDA ([facility]) Merlene Sadler, [facility]: [address], [place] [address], Ph. Attender: Merlene Sadler [facility] Medical 01/20/2020 12:00:00 AM EST HILDA ([facility]) Merlene Sadler, [facility]: [address], [place] [address], Ph. Attender: Merlene Sadler [facility] Medical 01/20/2020 12:00:00 AM EST HILDA ([facility]) Merlene Sadler, BRANCH SERVICE ASSOCIATE: [address], [place] [address], Ph. Attender: Merlene Sadler [facility] Medical 01/20/2020 12:00:00 AM EST HILDA ([facility]) Merlene Sadler, BRANCH SERVICE ASSOCIATE: [address], [place] [address], Ph. Attender: Merlene Sadler [facility] Medical 01/20/2020 12:00:00 AM EST HILDA ([facility]) Merlene Sadler, BRANCH SERVICE ASSOCIATE: [address], [place] [address], Ph. Attender: Merlene Sadler [facility] Medical 01/20/2020 12:00:00 AM EST HILDA ([facility]) Merlene Sadler, BRANCH SERVICE ASSOCIATE: [address], [place] [address], Ph. Attender: Merlene Sadler [facility] Medical 01/20/2020 12:00:00 AM EST HILDA ([facility]) Merlene Sadler, BRANCH SERVICE ASSOCIATE: [address], [place] [address], Ph. Attender: Merlene Sadler [facility] Medical 01/20/2020 12:00:00 AM EST HILDA ([facility]) Merlene Sadler, BRANCH SERVICE ASSOCIATE: [address], [place] [address], Ph. Attender: Merlene Sadler [facility] Medical 01/20/2020 12:00:00 AM EST HILDA ([facility]) Merlene Sadler, BRANCH SERVICE ASSOCIATE: [address], [place] [address], Ph. Attender: Merlene Sadler [facility] Medical 01/20/2020 12:00:00 AM EST HILDA ([facility]) Merlene Sadler, BRANCH SERVICE ASSOCIATE: [address], [place] [address], Ph. Attender: Merlene Sadler [facility] Medical 01/20/2020 12:00:00 AM EST HILDA ([facility]) Merlene Sadler, [facility]: [address], [place] [address], Ph. Attender: Merlene Sadler [facility] Medical 01/20/2020 12:00:00 AM EST HILDA ([facility]) Merlene Sadler, BRANCH SERVICE ASSOCIATE: [address], [place] [address], Ph. Attender: Merlene Sadler [facility] Medical 01/20/2020 12:00:00 AM EST HILDA ([facility]) Merlene Sadler, [facility]: [address], [place] [address], Ph. Attender: Merlene Sadler [facility] Medical 01/20/2020 12:00:00 AM EST HILDA ([facility]) Merlene Sadler, [facility]: [address], [place] [address], Ph. Attender: Merlene Sadler [facility] Medical 01/20/2020 12:00:00 AM EST HILDA ([facility]) Merlene Sadler, [facility]: [address], [place] [address], Ph. Attender: Merlene Sadler [facility] Medical 01/20/2020 12:00:00 AM EST HILDA ([facility]) Merlene Sadler, [facility]: [address], [place] [address], Ph. Attender: Merlene Sadler [facility] Medical 01/20/2020 12:00:00 AM EST HILDA ([facility]) Merlene Sadler BRANCH SERVICE ASSOCIATE: [address], [place] [address], Ph. Attender: Merlene Sadler [facility] Medical 01/20/2020 12:00:00 AM EST HILDA ([facility]) Merlene Sadler, BRANCH SERVICE ASSOCIATE: [address], [place] [address], Ph. Attender: Merlene Sadler [facility] Medical 01/20/2020 12:00:00 AM EST HILDA ([facility]) Merlene Sadler BRANCH SERVICE ASSOCIATE: [address], [place] [address], Ph. Attender: Merlene Sadler [facility] Medical 01/20/2020 12:00:00 AM EST HILDA ([facility]) Merlene Sadler, BRANCH SERVICE ASSOCIATE: [address], [place] [address], Ph. Attender: Merlene Sadler [facility] Medical 01/20/2020 12:00:00 AM EST HILDA ([facility]) Merlene Sadler, BRANCH SERVICE ASSOCIATE: [address], [place] [address], Ph. Attender: Merlene Sadler [facility] Medical 01/20/2020 12:00:00 AM EST HILDA ([facility]) Merlene Sadler, BRANCH SERVICE ASSOCIATE: [address], [place] [address], Ph. Attender: Merlene Sadler [facility] Medical 01/20/2020 12:00:00 AM EST HILDA ([facility]) Merlene Sadler, [facility]: [address], [place] [address], Ph. Attender: Merlene Sadler [facility] Medical 01/20/2020 12:00:00 AM EST HILDA ([facility]) Merlene Sadler, BRANCH SERVICE ASSOCIATE: [address], [place] [address], Ph. Attender: Merlene Sadler [facility] Medical 01/20/2020 12:00:00 AM EST HILDA ([facility]) Merlene Sadler, BRANCH SERVICE ASSOCIATE: [address], [place] [address], Ph. Attender: Merlene Sadler [facility] Medical 01/20/2020 12:00:00 AM EST HILDA ([facility]) Merlene Sadler, [facility]: [address], [place] [address], Ph. Attender: Merlene Sadler [facility] Medical 01/20/2020 12:00:00 AM EST HILDA ([facility]) Merlene Sadler [facility]: [address], [place] [address], Ph. Attender: Merlene Sadler [facility] Medical 01/20/2020 12:00:00 AM EST HILDA ([facility]) Merlene Sadler, [facility]: [address], [place] [address], Ph. Attender: Merlene Sadler [facility] Medical 01/16/2020 12:00:00 AM EST HILDA ([facility]) Merlene Sadler, [facility]: [address], [place] [address], Ph. Attender: Merlene Sadler [facility] Medical 01/16/2020 12:00:00 AM EST HILAD ([facility]) Merlene Sadler, BRANCH SERVICE ASSOCIATE: [address], [place] [address], Ph. Attender: Merlene Sadler [facility] Medical 01/16/2020 12:00:00 AM EST HILDA ([facility]) Merlene Sadler, BRANCH SERVICE ASSOCIATE: [address], [place] [address], Ph. Attender: Merlene Sadler [facility] Medical 01/16/2020 12:00:00 AM EST HILDA ([facility]) Merlene Sadler, BRANCH SERVICE ASSOCIATE: [address], [place] [address], Ph. Attender: Merlene Sadler [facility] Medical 01/16/2020 12:00:00 AM EST HILDA ([facility]) Merlene Sadler, BRANCH SERVICE ASSOCIATE: [address], [place] [address], Ph. Attender: Merlene Sadler [facility] Medical 01/16/2020 12:00:00 AM EST HILDA ([facility]) Merlene Sadler, BRANCH SERVICE ASSOCIATE: [address], [place] [address], Ph. Attender: Merlene Sadler [facility] Medical 01/16/2020 12:00:00 AM EST HILDA ([facility]) Merlene Sadler, BRANCH SERVICE ASSOCIATE: [address], [place] [address], Ph. Attender: Merlene Sadler [facility] Medical 01/16/2020 12:00:00 AM EST HILDA ([facility]) Merlene Sadler, BRANCH SERVICE ASSOCIATE: [address], [place] [address], Ph. Attender: Merlene Sadler [facility] Medical 01/16/2020 12:00:00 AM EST HILDA ([facility]) Merlene Sadler, BRANCH SERVICE ASSOCIATE: [address], [place] [address], Ph. Attender: Merlene Sadler [facility] Medical 01/16/2020 12:00:00 AM EST HILDA ([facility]) Merlene Sadler, BRANCH SERVICE ASSOCIATE: [address], [place] [address], Ph. Attender: Merlene Sadler [facility] Medical 01/16/2020 12:00:00 AM EST HILDA ([facility]) Merlene Sadler, BRANCH SERVICE ASSOCIATE: [address], [place] [address], Ph. Attender: Merleen Sadler [facility] Medical 01/16/2020 12:00:00 AM EST HILDA ([facility]) Merlene Sadler, BRANCH SERVICE ASSOCIATE: [address], [place] [address], Ph. Attender: Merlene Sadler [facility] Medical 01/16/2020 12:00:00 AM EST HILDA ([facility]) Merlene Sadler, BRANCH SERVICE ASSOCIATE: [address], [place] [address], Ph. Attender: Merlene Sadler [facility] Medical 01/16/2020 12:00:00 AM EST HILDA ([facility]) Merlene Sadler, BRANCH SERVICE ASSOCIATE: [address], [place] [address], Ph. Attender: Merlene Sadler [facility] Medical 01/16/2020 12:00:00 AM EST HILDA ([facility]) Merlene Sadler, BRANCH SERVICE ASSOCIATE: [address], [place] [address], Ph. Attender: Merlene Sadler [facility] Medical 01/16/2020 12:00:00 AM EST HILDA ([facility]) Merlene Sadler BRANCH SERVICE ASSOCIATE: [address], [place] [address], Ph. Attender: Merlene Sadler [facility] Medical 01/16/2020 12:00:00 AM EST HILDA ([facility]) Merlene Sadler, [employer] ASSOCIATE: [address], [place] [address], Ph. Attender: Merlene Sadler [facility] [place] [facility] Medical 01/16/2020 12:00:00 AM EST HILDA ([facility]) Merlene Sadler, [employer] SERV[employer] ASSOCIATE: [address], [place] [address], Ph. Attender: Merlene Sadler [facility] [place] [facility] Medical 01/16/2020 12:00:00 AM EST HILDA ([facility]) Merlene Sadler, [employer] SERV[employer] ASSOCIATE: [address], [place] [address], Ph. Attender: Merlene Sadler [facility] Medical 01/16/2020 12:00:00 AM EST HILDA ([facility]) Merlene Sadler, [facility]: [address], [place] [address], Ph. Attender: Merlene Sadler [facility] [place] [facility] Medical 01/16/2020 12:00:00 AM EST HILDA ([facility]) Merlene Sadler, [employer]: [address], [place] [address], Ph. Attender: Merlene Sadler [facility] [place] [facility] Medical 01/16/2020 12:00:00 AM EST HILDA ([facility]) Merlene Sadler, [facility] [facility] [place]: [address], [place] [address], Ph. Attender: Merlene Sadler [facility] Medical 01/16/2020 12:00:00 AM EST HILDA ([facility]) Merlene Sadler, [facility] [place]: [address], [place] [address], Ph. Attender: Merlene Sadler [facility] Medical 01/16/2020 12:00:00 AM EST HILDA ([facility]) Merlene Sadler, [facility] [place]: [address], [place] [address], Ph. Attender: Merlene Sadler [facility] Medical 01/16/2020 12:00:00 AM EST HILDA ([facility]) Merlene Sadler, [facility] [place]: [address], [place] [address], Ph. Attender: Merlene Sadler [facility] Medical 01/16/2020 12:00:00 AM EST HILDA ([facility]) Merlene Sadler, [employer]: [address], [place] [address], Ph. Attender: Merlene Sadler [facility] Medical 01/16/2020 12:00:00 AM EST HILDA ([facility]) Merlene Sadler, [employer]: [address], [place] [address], Ph. Attender: Merlene Sadler [facility] Medical 01/16/2020 12:00:00 AM EST HILDA ([facility]) Merlene Sadler, [employer]: [address], [place] [address], Ph. Attender: Merlene Sadler [facility] Medical 01/16/2020 12:00:00 AM EST HILDA ([facility]) Merlene Sadler, [employer]: [address], [place] [address], Ph. Attender: Merlene Sadler [facility] Medical 01/16/2020 12:00:00 AM EST HILDA ([facility]) Merlene Sadler, [employer]: [address], [place] [address], Ph. Attender: Merlene Sadler [facility] Medical 01/08/2020 12:00:00 AM EST HILDA ([facility]) Merlene Sadler, [employer]: [address], [place] [address], Ph. Attender: Merlene Sadler [facility] Medical 01/08/2020 12:00:00 AM EST HILDA ([facility]) Merlene Sadler, [facility] [place]: [address], [place] [address], Ph. Attender: Merlene Sadler [facility] Medical 01/08/2020 12:00:00 AM EST HILDA ([facility]) Merlene Sadler, [employer]: [address], [place] [address], Ph. Attender: Merlene Sadler [facility] Medical 01/08/2020 12:00:00 AM EST HILDA ([facility]) Merlene Sadler, [employer]: [address], [place] [address], Ph. Attender: Merlene Sadler [facility] Medical 01/08/2020 12:00:00 AM EST HILDA ([facility]) Merlene Sadler, [employer]: [address], [place] [address], Ph. Attender: Merlene Sadler [facility] Medical 01/08/2020 12:00:00 AM EST HILDA ([facility]) Merlene Sadler, [facility] [place]: [address], [place] [address], Ph. Attender: Merlene Sadler [facility] Medical 01/08/2020 12:00:00 AM EST HILDA ([facility]) Merlene Sadler, [facility] [place]: [address], [place] [address], Ph. Attender: Merlene Sadler [facility] Medical 01/08/2020 12:00:00 AM EST HILDA ([facility]) Merlene Sadler, [facility] [place]: [address], [place] [address], Ph. Attender: Merlene Sadler [facility] Medical 01/08/2020 12:00:00 AM EST HILDA ([facility]) Merlene Sadler, [employer]: [address], [place] [address], Ph. Attender: Merlene Sadler [facility] Medical 01/08/2020 12:00:00 AM EST HILDA ([facility]) Merlene Sadler, [facility] [place]: [address], [place] [address], Ph. Attender: Merlene Sadler [facility] Medical 01/08/2020 12:00:00 AM EST HILDA ([facility]) Merlene Sadler, [facility] [place]: [address], [place] [address], Ph. Attender: Merlene Sadler [facility] Medical 01/08/2020 12:00:00 AM EST HILDA ([facility]) Merlene Sadler, [facility] [place]: [address], [place] [address], Ph. Attender: Merlene Sadler [facility] Medical 01/08/2020 12:00:00 AM EST HILDA ([facility]) Merlene Sadler, [facility] [place]: [address], [place] [address], Ph. Attender: Merlene Sadler [facility] Medical 01/08/2020 12:00:00 AM EST HILDA ([facility]) Merlene Sadler, [facility] [place]: [address], [place] [address], Ph. Attender: Merlene Sadler [facility] Medical 01/08/2020 12:00:00 AM EST HILDA ([facility]) Merlene Sadler, [employer]: [address], [place] [address], Ph. Attender: Merlene Sadler [facility] Medical 01/08/2020 12:00:00 AM EST HILDA ([facility]) Merlene Sadler, [employer]: [address], [place] [address], Ph. Attender: Merlene Sadler [facility] Medical 01/08/2020 12:00:00 AM EST HILDA ([facility]) Merlene Sadler, [employer]: [address], [place] [address], Ph. Attender: Merlene Sadler [facility] Medical 01/08/2020 12:00:00 AM EST HILDA ([facility]) Merlene Sadler, [employer]: [address], [place] [address], Ph. Attender: Merlene Sadler [facility] Medical 01/08/2020 12:00:00 AM EST HILDA ([facility]) Merlene Sadler, [employer]: [address], [place] [address], Ph. Attender: Merlene Sadler [facility] Medical 01/08/2020 12:00:00 AM EST HILDA ([facility]) Merlene Sadler, [employer]: [address], [place] [address], Ph. Attender: Merlene Sadler [facility] Medical 01/08/2020 12:00:00 AM EST HILDA ([facility]) Merlene Sadler, [employer]: [address], [place] [address], Ph. Attender: Merlene Sadler [facility] Medical 01/08/2020 12:00:00 AM EST HILDA ([facility]) Merlene Sadler, [employer]: [address], [place] [address], Ph. Attender: Merlene Sadler [facility] Medical 01/08/2020 12:00:00 AM EST HILDA ([facility]) Merlene Sadler [employer]: [address], [place] [address], Ph. Attender: Merlene Sadler [facility] Medical 01/08/2020 12:00:00 AM EST HILDA ([facility]) Merlene Sadler, [employer]: [address], [place] [address], Ph. Attender: Merlene Sadler [facility] Medical 01/08/2020 12:00:00 AM EST HILDA ([facility]) Merlene Sadler, [employer]IATE: [address], [place] [address], Ph. Attender: Merlene Sadler [facility] Medical 01/08/2020 12:00:00 AM EST HILDA ([facility]) Merlene Sadler, [employer]: [address], [place] [address], Ph. Attender: Merlene Sadler [facility] Medical 01/08/2020 12:00:00 AM EST HILDA ([facility]) Merlene Sadler, [facility] [place]: [address], [place] [address], Ph. Attender: Merlene Sadler [facility] Medical 01/08/2020 12:00:00 AM EST HILDA ([facility]) Merlene Sadler, [employer]: [address], [place] [address], Ph. Attender: Merlene Sadler [facility] Medical 01/08/2020 12:00:00 AM EST HILDA ([facility]) Merlene Sadler, [facility] [place]: [address], [place] [address], Ph. Attender: Merlene Sadler [facility] Medical 01/08/2020 12:00:00 AM EST HILDA ([facility]) Merlene Sadler, [facility] [place]: [address], [place] [address], Ph. Attender: Merlene Sadler [facility] Medical 01/08/2020 12:00:00 AM EST HILDA ([facility]) Merlene Sadler, [facility] [place]: [address], [place] [address], Ph. Attender: Merlene Sadler [facility] Medical 01/08/2020 12:00:00 AM EST HILDA ([facility]) Merlene Sadler, [facility] [place]: [address], [place] [address], Ph. Attender: Merlene Sadler [place] [facility] Medical 01/08/2020 12:00:00 AM EST HILDA ([facility]) Outpatient Attender: PALOMO LOVE MD Main Office 01/07/2020 12:00:00 PM EST MEDJUAN RAMON ([facility]) Terry Quiroga RPA-C: [address], [place] [address], Ph. Attender: TERRY QUIROGA RPA-C [facility] Medical 01/06/2020 12:00:00 AM EST HILDA ([facility]) Terry Quiroga RPA-C: [address], [place] [address], Ph. Attender: TERRY QUIROGA RPA-C [facility] Medical 01/06/2020 12:00:00 AM EST HILDA ([facility]) Terry Quiroga RPA-C: [address], [place] [address], Ph. Attender: TERRY WASHBURNC [facility] Medical 01/06/2020 12:00:00 AM EST HILDA ([facility]) Terry Quiroga RPA-C: [address], [place] [address], Ph. Attender: TERRY QUIROGA RPA-C [facility] Medical 01/06/2020 12:00:00 AM EST HILDA ([facility]) Terry Quiroga RPA-C: [address], [place] [address], Ph. Attender: TERRY QUIROGA RPA-C [facility] Medical 01/06/2020 12:00:00 AM EST HILDA ([facility]) Terry D Quiroga, RPA-C: [address], [place] [address], Ph. Attender: TERRY QUIROGA RPA-C [facility] Medical 01/06/2020 12:00:00 AM EST HILDA ([facility]) Terry Quiroga, RPA[facility]C: [address], [place] [address], Ph. Attender: TERRY QUIROGA RPA-C [facility] Medical 01/06/2020 12:00:00 AM EST HILDA ([facility]) Terry Quiroga, RPA-C: [address], [place] [address], Ph. Attender: TERRY QUIROGA RPA-C [facility] Medical 01/06/2020 12:00:00 AM EST HILDA ([facility]) Terry Quiroga, RPA-C: [address], [place] [address], Ph. Attender: TERRY QUIROGA RPA-C [facility] Medical 01/06/2020 12:00:00 AM EST HILDA ([facility]) Terry Quiroga RPA-C: [address], [place] [address], Ph. Attender: TERRY QUIROGA RPA-C [facility] Medical 01/06/2020 12:00:00 AM EST HILDA ([facility]) Terry Quiroga, RPA-C: [address], [place] [address], Ph. Attender: TERRY QUIROGA RPA-C [facility] Medical 01/06/2020 12:00:00 AM EST HILDA ([facility]) Terry Quiroga, RPA-C: [address], [place] [address], Ph. Attender: TERRY QUIROGA RPA-C [facility] Medical 01/06/2020 12:00:00 AM EST HILDA ([facility]) Terry Quiroga, RPA-C: [address], [place] [address], Ph. Attender: TERRY QUIROGA RPA-C [facility] Medical 01/06/2020 12:00:00 AM EST HILDA ([facility]) Terry Quiroga RPA-C: [address], [place] [address], Ph. Attender: TERRY QUIROGA RPA-C [facility] Medical 01/06/2020 12:00:00 AM EST HILDA ([facility]) Terry Quiroga, RPA-C: [address], [place] [address], Ph. Attender: TERRY QUIROGA RPA-C [facility] Medical 01/06/2020 12:00:00 AM EST HILDA ([facility]) Terry Quiroga, RPA-C: [address], [place] [address], Ph. Attender: TERRY QUIROGA RPA-C [facility] Medical 01/06/2020 12:00:00 AM EST HILDA ([facility]) Terry Quiroga, RPA-C: [address], [place] [address], Ph. Attender: TERRY QUIROGA RPA-C [facility] Medical 01/06/2020 12:00:00 AM EST HILDA ([facility]) Terry Quiroga RPA-C: [address], [place] [address], Ph. Attender: TERRY QUIROGA RPA-C [facility] Medical 01/06/2020 12:00:00 AM EST HILDA ([facility]) Terry Quiroga RPA-C: [address], [place] [address], Ph. Attender: TERRY QUIROGA RPA-C [facility] Medical 01/06/2020 12:00:00 AM EST HILDA ([facility]) Terry Quiroga RPA-C: [address], [place] [address], Ph. Attender: TERRY QUIROGA RPA-C [facility] Medical 01/06/2020 12:00:00 AM EST HILDA ([facility]) Terry Quiroga RPA-C: [address], [place] [address], Ph. Attender: TERRY QUIROGA RPA-C [facility] Medical 01/06/2020 12:00:00 AM EST HILDA ([facility]) Terry Quiroga, RPA-C: [address], [place] [address], Ph. Attender: TERRY QUIROGA RPA-C [facility] Medical 01/06/2020 12:00:00 AM EST HILDA ([facility]) Terry Quiroga RPA-C: [address], [place] [address], Ph. Attender: TERRY QUIROGA RPA-C [facility] Medical 01/06/2020 12:00:00 AM EST HILDA ([facility]) Terry Quiroga RPA-C: [address], [place] [address], Ph. Attender: TERRY QUIROGA RPA-C [facility] Medical 01/06/2020 12:00:00 AM EST HILDA ([facility]) Terry Quiroga RPA-C: [address], [place] [address], Ph. Attender: TERRY QUIROGA RPA-C [facility] Medical 01/06/2020 12:00:00 AM EST HILDA ([facility]) Terry Quiroga RPA-C: [address], [place] [address], Ph. Attender: TERRY QUIROGA RPA-C [facility] Medical 01/06/2020 12:00:00 AM EST HILDA ([facility]) Terry Quiroga RPA-C: [address], [place] [address], Ph. Attender: TERRY QUIROGA RPA-C [facility] Medical 01/06/2020 12:00:00 AM EST HILDA ([facility]) Terry Quiroga RPA-C: [address], [place] [address], Ph. Attender: TERRY QUIROGA RPA-C [facility] Medical 01/06/2020 12:00:00 AM EST HILDA ([facility]) Terry Quiroga RPA-C: [address], [place] [address], Ph. Attender: TERRY QUIROGA RPA-C [facility] Medical 01/06/2020 12:00:00 AM EST HILDA ([facility]) Terry Quiroga, RPA-C: [address], [place] [address], Ph. Attender: TERRY QUIROGA RPA-C [facility] Medical 01/06/2020 12:00:00 AM EST HILDA ([facility]) Terry Quiroga RPA-C: [address], [place] [address], Ph. Attender: TERRY QUIROGA RPA-C [facility] Medical 01/06/2020 12:00:00 AM EST HILDA ([facility]) Terry Quiroga, RPA-C: [address], [place] [address], Ph. Attender: TERRY QUIROGA RPA-C [facility] Medical 01/06/2020 12:00:00 AM EST HILDA ([facility]) Terry Quiroga RPA-C: [address], [place] [address], Ph. Attender: TERRY QUIROGA RPA-C [facility] Medical 01/06/2020 12:00:00 AM EST HILDA ([facility]) Terry Quiroga, RPA-C: [address], [place] [address], Ph. Attender: TERRY QUIROGA RPA-C [facility] Medical 12/31/2019 12:00:00 AM EST HILDA ([facility]) Terry Quiroga, RPA-C: [address], [place] [address], Ph. Attender: TERRY QUIROGA RPA-C [facility] Medical 12/31/2019 12:00:00 AM EST HILDA ([facility]) Terry Quiroga, RPA-C: [address], [place] [address], Ph. Attender: TERRY QUIROGA RPA-C [facility] Medical 12/31/2019 12:00:00 AM EST HILDA ([facility]) Terry Quiroga RPA-C: [address], [place] [address], Ph. Attender: TERRY QUIROGA RPA-C [facility] Medical 12/31/2019 12:00:00 AM EST HILDA ([facility]) Terry Quiroga, RPA-C: [address], [place] [address], Ph. Attender: TERRY QUIROGA RPA-C [facility] Medical 12/31/2019 12:00:00 AM EST HILDA ([facility]) Terry Quiroga, RPA-C: [address], [place] [address], Ph. Attender: TERRY QUIROGA RPA-C [facility] Medical 12/31/2019 12:00:00 AM EST HILDA ([facility]) Terry Quiroga RPA-C: [address], [place] [address], Ph. Attender: TERRY QUIROGA RPA-C [facility] Medical 12/31/2019 12:00:00 AM EST HILDA ([facility]) Terry Quiroga RPA-C: [address], [place] [address], Ph. Attender: TERRY QUIROGA RPA-C [facility] Medical 12/31/2019 12:00:00 AM EST HILDA ([facility]) Terry Quiroga RPA-C: [address], [place] [address], Ph. Attender: TERRY QUIROGA RPA-C [facility] Medical 12/31/2019 12:00:00 AM EST HILDA ([facility]) Terry Quiroga RPA-C: [address], [place] [address], Ph. Attender: TERRY QUIROGA RPA-C [facility] Medical 12/31/2019 12:00:00 AM EST HILDA ([facility]) Terry Quiroga RPA-C: [address], [place] [address], Ph. Attender: TERRY QUIROGA RPA-C [facility] Medical 12/31/2019 12:00:00 AM EST HILDA ([facility]) Terry Quiroga, RPA-C: [address], [place] [address], Ph. Attender: TERRY QUIROGA RPA-C [facility] Medical 12/31/2019 12:00:00 AM EST HILDA ([facility]) Terry Quiroga RPA-C: [address], [place] [address], Ph. Attender: TERRY QUIROGA RPA-C [facility] Medical 12/31/2019 12:00:00 AM EST HILDA ([facility]) Terry Quiroga RPA-C: [address], [place] [address], Ph. Attender: TERRY QUIROGA RPA-C [facility] Medical 12/31/2019 12:00:00 AM EST HILDA ([facility]) Terry Quiroga RPA-C: [address], [place] [address], Ph. Attender: TERRY QUIROGA RPA-C [facility] 12/31/2019 12:00:00 AM EST HILDA ([facility]) Terry Quiroga RPA-C: [address], [place] [address], Ph. Attender: TERRY QUIROGA RPA-C [facility] 12/31/2019 12:00:00 AM EST HILDA ([facility]) Terry Quiroga, RPA-C: [address], [address], [place] [address], Ph. Attender: TERRY QUIROGA RPA-C [facility] 12/31/2019 12:00:00 AM EST HILDA ([facility]) Terry Quiroga RPA-C: [address], [place] [address], Ph. Attender: TERRY QUIROGA RPA-C [facility] 12/31/2019 12:00:00 AM EST HILDA ([facility]) Terry D Quiroga, RPA-C: [address], [address], [place] [address], Ph. Attender: TERRY QUIROGA RPA-C [facility] 12/31/2019 12:00:00 AM EST HILDA ([facility]) Terry Quiroga, RPA-C: [address], [address], [place] [address], Ph. Attender: TERRY QUIROGA RPA-C [facility] 12/31/2019 12:00:00 AM EST HILDA ([facility]) Terry Quiroga RPA-C: [address], [place] [address], Ph. Attender: TERRY QUIROGA RPA-C [facility] Medical 12/31/2019 12:00:00 AM EST HILDA ([facility]) Terry Quiroga, RPA-C: [address], [place] [address], Ph. Attender: TERRY QUIROGA RPA-C [facility] Medical 12/31/2019 12:00:00 AM EST HILDA ([facility]) Terry Quiroga RPA-C: [address], [place] [address], Ph. Attender: TERRY QUIROGA RPA-C [facility] Medical 12/31/2019 12:00:00 AM EST HILDA ([facility]) Terry Quiroga, RPA-C: [address], [place] [address], Ph. Attender: TERRY QUIROGA RPA-C [facility] Medical 12/31/2019 12:00:00 AM EST HILDA ([facility]) Terry Quiroga, RPA-C: [address], [place] [address], Ph. Attender: TERRY QUIROGA RPA-C [facility] Medical 12/31/2019 12:00:00 AM EST HILDA ([facility]) Terry Quiroga, RPA-C: [address], [place] [address], Ph. Attender: TERRY QUIROGA RPA-C [facility] Medical 12/31/2019 12:00:00 AM EST HILDA ([facility]) Terry Quiroga, RPA-C: [address], [place] [address], Ph. Attender: TERRY QUIROGA RPA-C [facility] Medical 12/31/2019 12:00:00 AM EST HILDA ([facility]) Terry Quiroga, RPA-C: [address], [place] [address], Ph. Attender: TERRY QUIROGA RPA-C [facility] Medical 12/31/2019 12:00:00 AM EST HILDA ([facility]) Terry Quiroga, RPA-C: [address], [place] [address], Ph. Attender: TERRY QUIROGA RPA-C [facility] Medical 12/31/2019 12:00:00 AM EST HILDA ([facility]) Terry Quiroga RPA-C: [address], [place] [address], Ph. Attender: TERRY QUIROGA RPA-C [facility] Medical 12/31/2019 12:00:00 AM EST HILDA ([facility]) Terry Quiroga RPA-C: [address], [place] [address], Ph. Attender: TERRY QUIROGA RPA-C [facility] Medical 12/31/2019 12:00:00 AM EST HILDA ([facility]) Terry Quiroga RPA-C: [address], [place] [address], Ph. Attender: TERRY QUIROGA RPA-C [facility] Medical 12/31/2019 12:00:00 AM EST HILDA ([facility]) Terry Quiroga RPA-C: [address], [place] [address], Ph. Attender: TERRY QUIROGA RPA-C [facility] Medical 12/31/2019 12:00:00 AM EST HILDA ([facility]) Merlenemarie Sadler, BRANCH SERVICE ASSOCIATE: [address], [place] [address], Ph. Attender: Merlene Sadler [facility] Medical 12/26/2019 12:00:00 AM EST HILDA ([facility]) Merlene Sadler, BRANCH SERVICE ASSOCIATE: [address], [place] [address], Ph. Attender: Merlene Sadler [facility] Medical 12/26/2019 12:00:00 AM EST HILDA ([facility]) Merlene Sadler, BRANCH SERVICE ASSOCIATE: [address], [place] [address], Ph. Attender: Merlene Sadler [facility] Medical 12/26/2019 12:00:00 AM EST HILDA ([facility]) Merlene Sadler, [facility]: [address], [place] [address], Ph. Attender: Merlene Sadler [facility] Medical 12/26/2019 12:00:00 AM EST HILDA ([facility]) Merlene Sadler, [facility]: [address], [place] [address], Ph. Attender: Merlene Sadler [facility] Medical 12/26/2019 12:00:00 AM EST HILDA ([facility]) Merlene Sadler, [facility]: [address], [place] [address], Ph. Attender: Merlene Sadler [facility] Medical 12/26/2019 12:00:00 AM EST HILDA ([facility]) Merlene Sadler, [facility]: [address], [place] [address], Ph. Attender: Merlene Sadler [facility] Medical 12/26/2019 12:00:00 AM EST HILDA ([facility]) Merlene Sadler, [facility]: [address], [place] [address], Ph. Attender: Merlene Sadler [facility] Medical 12/26/2019 12:00:00 AM EST HILDA ([facility]) Merlene Sadler, [facility]: [address], [place] [address], Ph. Attender: Merlene Sadler [facility] Medical 12/26/2019 12:00:00 AM EST HILDA ([facility]) Merlene Sadler, BRANCH SERVICE ASSOCIATE: [address], [place] [address], Ph. Attender: Merlene Sadler [facility] Medical 12/26/2019 12:00:00 AM EST HILDA ([facility]) Merlene Sadler, BRANCH SERVICE ASSOCIATE: [address], [place] [address], Ph. Attender: Merlene Sadler [facility] [place] [facility] Medical 12/26/2019 12:00:00 AM EST HILDA ([facility]) Merlene Sadler, BRANCH SERVICE ASSOCIATE: [address], [place] [address], Ph. Attender: Merlene Sadler [facility] Medical 12/26/2019 12:00:00 AM EST HILDA ([facility]) Merlene Sadler, BRANCH SERVICE ASSOCIATE: [address], [place] [address], Ph. Attender: Merlene Sadler [facility] Medical 12/26/2019 12:00:00 AM EST HILDA ([facility]) Merlene Sadler, BRANCH SERVICE ASSOCIATE: [address], [place] [address], Ph. Attender: Merlene Sadler [facility] Medical 12/26/2019 12:00:00 AM EST HILDA ([facility]) Merlene Sadler, BRANCH SERVICE ASSOCIATE: [address], [place] [address], Ph. Attender: Merlene Sadler [facility] Medical 12/26/2019 12:00:00 AM EST HILDA ([facility]) Merlene Sadler, [facility]: [address], [place] [address], Ph. Attender: Merlene Sadler [facility] [place] [facility] Medical 12/26/2019 12:00:00 AM EST HILDA ([facility]) Merlene Sadler, BRANCH SERVICE ASSOCIATE: [address], [place] [address], Ph. Attender: Merlene Sadler [facility] [place] [facility] Medical 12/26/2019 12:00:00 AM EST HILDA ([facility]) Merlene Sadler, BRANCH SERVICE ASSOCIATE: [address], [place] [address], Ph. Attender: Merlene Sadler [facility] [place] [facility] Medical 12/26/2019 12:00:00 AM EST HILDA ([facility]) Merlene Sadler, BRANCH SERVICE ASSOCIATE: [address], [place] [address], Ph. Attender: Merlene Sadler [facility] [place] [facility] Medical 12/26/2019 12:00:00 AM EST HILDA ([facility]) Merlene Sadler, [facility]: [address], [place] [address], Ph. Attender: Merlene Sadler [facility] Medical 12/26/2019 12:00:00 AM EST HILDA ([facility]) Merlene Sadler, [facility]: [address], [place] [address], Ph. Attender: Merlene Sadler [facility] Medical 12/26/2019 12:00:00 AM EST HILDA ([facility]) Merlene Sadler, [facility]: [address], [place] [address], Ph. Attender: Merlene Sadler [facility] [place] [facility] Medical 12/26/2019 12:00:00 AM EST HILDA ([facility]) Merlene Sadler, [facility]: [address], [place] [address], Ph. Attender: Merlene Sadler [facility] [place] Medical 12/26/2019 12:00:00 AM EST HILDA ([facility]) Merlene Sadler, [facility]: [address], [place] [address], Ph. Attender: Merlene Sadler [facility] [place] [facility] Medical 12/26/2019 12:00:00 AM EST HILDA ([facility]) Merlene Sadler, [facility]: [address], [place] [address], Ph. Attender: Merlene Sadler [facility] [place] Medical 12/26/2019 12:00:00 AM EST HILDA ([facility]) Merlene Sadler, [facility]: [address], [place] [address], Ph. Attender: Merlene Sadler [facility] Medical 12/26/2019 12:00:00 AM EST HILDA ([facility]) Merlene Sadler, [facility]: [address], [place] [address], Ph. Attender: Merlene Sadler [facility] Medical 12/26/2019 12:00:00 AM EST HILDA ([facility]) Merlene Sadler, [facility]: [address], [place] [address], Ph. Attender: Merlene Sadler [facility] Medical 12/26/2019 12:00:00 AM EST HILDA ([facility]) Merlene Salder, BRANCH SERVICE ASSOCIATE: [address], [place] [address], Ph. Attender: Merlene Sadler [facility] Medical 12/26/2019 12:00:00 AM EST HILDA ([facility]) Merlene Sadler, BRANCH SERVICE ASSOCIATE: [address], [place] [address], Ph. Attender: Merlene Sadler [facility] Medical 12/26/2019 12:00:00 AM EST HILDA ([facility]) Merlene Sadler, BRANCH SERVICE ASSOCIATE: [address], [place] [address], Ph. Attender: Merlene Sadler [facility] [place] Medical 12/26/2019 12:00:00 AM EST HILDA ([facility]) Merlene Sadler, BRANCH SERVICE ASSOCIATE: [address], [place] [address], Ph. Attender: Merlene Sadler [facility] Medical 12/26/2019 12:00:00 AM EST HILDA ([facility]) Merlene Sadler, BRANCH SERVICE ASSOCIATE: [address], [place] [address], Ph. Attender: Merlene Sadler [facility] Medical 12/26/2019 12:00:00 AM EST HILDA ([facility]) Merlene Sadler, BRANCH SERVICE ASSOCIATE: [address], [place] [address], Ph. Attender: Merlene Sadler [facility] Medical 12/26/2019 12:00:00 AM EST HILDA ([facility]) Merlene Sadler, BRANCH SERVICE ASSOCIATE: [address], [place] [address], Ph. Attender: Merlene Sadler [facility] Medical 12/19/2019 12:00:00 AM EST HILDA ([facility]) Merlene Sadler, BRANCH SERVICE ASSOCIATE: [address], [place] [address], Ph. Attender: Merlene Sadler [facility] Medical 12/19/2019 12:00:00 AM EST HILDA ([facility]) Merlene Sadler, BRANCH SERVICE ASSOCIATE: [address], [place] [address], Ph. Attender: Merlene Sadler [facility] Medical 12/19/2019 12:00:00 AM EST HILDA ([facility]) Merlene Sadler, BRANCH SERVICE ASSOCIATE: [address], [place] [address], Ph. Attender: Merlene Sadler [facility] Medical 12/19/2019 12:00:00 AM EST HILDA ([facility]) Merlene Sadler, BRANCH SERVICE ASSOCIATE: [address], [place] [address], Ph. Attender: Merlene Sadler [facility] Medical 12/19/2019 12:00:00 AM EST HILDA ([facility]) Merlene Sadler, BRANCH SERVICE ASSOCIATE: [address], [place] [address], Ph. Attender: Merlene Sadler [facility] Medical 12/19/2019 12:00:00 AM EST HILDA ([facility]) Merlene Sadler, [facility]: [address], [place] [address], Ph. Attender: Merlene Sadler [facility] Medical 12/19/2019 12:00:00 AM EST HILDA ([facility]) Merlene Sadler, BRANCH SERVICE ASSOCIATE: [address], [place] [address], Ph. Attender: Merlene Sadler [facility] [place] Medical 12/19/2019 12:00:00 AM EST HILDA ([facility]) Merlene Sadler, [facility]: [address], [place] [address], Ph. Attender: Merlene Sadler [facility] Medical 12/19/2019 12:00:00 AM EST HILDA ([facility]) Merlene Sadler, [facility]: [address], [place] [address], Ph. Attender: Merlene Sadler [facility] Medical 12/19/2019 12:00:00 AM EST HILDA ([facility]) Merlene Sadler, [facility]: [address], [place] [address], Ph. Attender: Merlene Sadler [facility] Medical 12/19/2019 12:00:00 AM EST HILDA ([facility]) Merlene Sadler, BRANCH SERVICE ASSOCIATE: [address], [place] [address], Ph. Attender: Merlene Sadler [facility] Medical 12/19/2019 12:00:00 AM EST HILDA ([facility]) Merlene Sadler, [facility]: [address], [place] [address], Ph. Attender: Merlene Sadler [facility] Medical 12/19/2019 12:00:00 AM EST HILDA ([facility]) Merlene Sadler, BRANCH SERVICE ASSOCIATE: [address], [place] [address], Ph. Attender: Merlene Sadler [facility] Medical 12/19/2019 12:00:00 AM EST HILDA ([facility]) Merlene Sadler, BRANCH SERVICE ASSOCIATE: [address], [place] [address], Ph. Attender: Merlene Sadler [facility] Medical 12/19/2019 12:00:00 AM EST HILDA ([facility]) Merlene Sadler, [facility]: [address], [place] [address], Ph. Attender: Merlene Sadler [facility] Medical 12/19/2019 12:00:00 AM EST HILDA ([facility]) Merlene Sadler [facility]: [address], [place] [address], Ph. Attender: Merlene Sadler [facility] Medical 12/19/2019 12:00:00 AM EST HILDA ([facility]) Merlene Sadler, BRANCH SERVICE ASSOCIATE: [address], [place] [address], Ph. Attender: Merlene Sadler [facility] Medical 12/19/2019 12:00:00 AM EST HILDA ([facility]) Merlene Sadler, [facility]: [address], [place] [address], Ph. Attender: Merlene Sadler [facility] [place] Medical 12/19/2019 12:00:00 AM EST HILDA ([facility]) Merlene Sadler, BRANCH SERVICE ASSOCIATE: [address], [place] [address], Ph. Attender: Merlene Sadler [facility] Medical 12/19/2019 12:00:00 AM EST HILDA ([facility]) Merlene Sadler, BRANCH SERVICE ASSOCIATE: [address], [place] [address], Ph. Attender: Merlene Sadler [facility] Medical 12/19/2019 12:00:00 AM EST HILDA ([facility]) Merlene Sadler, BRANCH SERVICE ASSOCIATE: [address], [place] [address], Ph. Attender: Merlene Sadler [facility] Medical 12/19/2019 12:00:00 AM EST HILDA ([facility]) Merlene Sadler BRANCH SERVICE ASSOCIATE: [address], [place] [address], Ph. Attender: Merlene Sadler [facility] Medical 12/19/2019 12:00:00 AM EST HILDA ([facility]) Merlene Sadler, BRANCH SERVICE ASSOCIATE: [address], [place] [address], Ph. Attender: Merlene Sadler [facility] Medical 12/19/2019 12:00:00 AM EST HILDA ([facility]) Merlene Sadler, [facility]: [address], [place] [address], Ph. Attender: Merlene Sadler [facility] Medical 12/19/2019 12:00:00 AM EST HILDA ([facility]) Merlene Sadler, BRANCH SERVICE ASSOCIATE: [address], [place] [address], Ph. Attender: Merlene Sadler [facility] Medical 12/19/2019 12:00:00 AM EST HILDA ([facility]) Merlene Sadler, [facility]: [address], [place] [address], Ph. Attender: Merlene Sadler [facility] Medical 12/19/2019 12:00:00 AM EST HILDA ([facility]) Merlene Sadler, [facility]: [address], [place] [address], Ph. Attender: Merlene Sadler [facility] Medical 12/19/2019 12:00:00 AM EST HILDA ([facility]) Merlene Sadler, [facility]: [address], [place] [address], Ph. Attender: Merlene Sadler [facility] Medical 12/19/2019 12:00:00 AM EST HILDA ([facility]) Merlene Sadler, [facility]: [address], [place] [address], Ph. Attender: Merlene Sadler [facility] Medical 12/19/2019 12:00:00 AM EST HILDA ([facility]) Merlene Sadler, BRANCH SERVICE ASSOCIATE: [address], [place] [address], Ph. Attender: Merlene Sadler [facility] Medical 12/19/2019 12:00:00 AM EST HILDA ([facility]) Merlene Sadler, BRANCH SERVICE ASSOCIATE: [address], [place] [address], Ph. Attender: Merlene Sadler [facility] Medical 12/19/2019 12:00:00 AM EST HILDA ([facility]) Merlene Sadler, BRANCH SERVICE ASSOCIATE: [address], [place] [address], Ph. Attender: Merlene Sadler [facility] Medical 12/19/2019 12:00:00 AM EST HILDA ([facility]) Merlene Sadler, BRANCH SERVICE ASSOCIATE: [address], [place] [address], Ph. Attender: Merlene Sadler [facility] Medical 12/19/2019 12:00:00 AM EST HILDA ([facility]) Merlene Sadler, BRANCH SERVICE ASSOCIATE: [address], [place] [address], Ph. Attender: Merlene Sadler [facility] Medical 12/19/2019 12:00:00 AM EST HILDA ([facility]) Merlene Sadler, BRANCH SERVICE ASSOCIATE: [address], [place] [address], Ph. Attender: Merlene Sadler [facility] Medical 12/19/2019 12:00:00 AM EST HILDA ([facility]) Merlene Sadler, BRANCH SERVICE ASSOCIATE: [address], [place] [address], Ph. Attender: Merlene Sadler [facility] Medical 12/18/2019 12:00:00 AM EST [facility] ([facility]) Merlene Sadler, BRANCH SERVICE ASSOCIATE: [address], [place] [address], Ph. Attender: Merlene Sadler [facility] 12/18/2019 12:00:00 AM EST [facility] ([facility]) Merlene Sadler, BRANCH SERVICE ASSOCIATE: [address], [place] [address], Ph. Attender: Merlene Sadler [facility] Medical 12/18/2019 12:00:00 AM EST [facility] ([facility]) Merlene Sadler, BRANCH SERVICE ASSOCIATE: [address], [place] [address], Ph. Attender: Merlene Sadler [facility] 12/18/2019 12:00:00 AM EST [facility] ([facility]) Merlene Sadler, BRANCH SERVICE ASSOCIATE: [address], [place] [address], Ph. Attender: Merlene Sadler [facility] Medical 12/18/2019 12:00:00 AM EST [facility]IL[facility] ([facility]) Merlene Sadler, BRANCH SERVICE ASSOCIATE: [address], [place] [address], Ph. Attender: Merlene Sadler [facility] [facility] Medical 12/18/2019 12:00:00 AM EST HILDA ([facility]) Merlene Sadler, BRANCH SERVICE ASSOCIATE: [address], [place] [address], Ph. Attender: Merlene Sadler [facility] Medical 12/18/2019 12:00:00 AM EST HILDA ([facility]) Merlene Sadler, BRANCH SERVICE ASSOCIATE: [address], [place] [address], Ph. Attender: Merlene Sadler [facility] [place] [facility] Medical 12/18/2019 12:00:00 AM EST HILDA ([facility]) Merlene Sadler, BRANCH SERVICE ASSOCIATE: [address], [place] [address], Ph. Attender: Merlene Sadler [facility] Medical 12/18/2019 12:00:00 AM EST HILDA ([facility]) Merlene Sadler, [facility]: [address], [place] [address], Ph. Attender: Merlene Sadler [facility] [place] [facility] Medical 12/18/2019 12:00:00 AM EST HILDA ([facility]) Merlene Sadler, [facility]: [address], [place] [address], Ph. Attender: Merlene Sadler [facility] [place] [facility] Medical 12/18/2019 12:00:00 AM EST HILDA ([facility]) Merlene Sadler, [facility]: [address], [place] [address], Ph. Attender: Merlene Sadler [facility] Medical 12/18/2019 12:00:00 AM EST HILDA ([facility]) Merlene Sadler, BRANCH SERVICE ASSOCIATE: [address], [place] [address], Ph. Attender: Merlene Sadler [facility] Medical 12/18/2019 12:00:00 AM EST HILDA ([facility]) Merlene Sadler, BRANCH SERVICE ASSOCIATE: [address], [place] [address], Ph. Attender: Merlene Sadler [facility] Medical 12/18/2019 12:00:00 AM EST HILDA ([facility]) Merlene Sadler, BRANCH SERVICE ASSOCIATE: [address], [place] [address], Ph. Attender: Merlene Sadler [facility] Medical 12/18/2019 12:00:00 AM EST HILDA ([facility]) Merlene Sadler, BRANCH SERVICE ASSOCIATE: [address], [place] [address], Ph. Attender: Merlene Sadler [facility] Medical 12/18/2019 12:00:00 AM EST HILDA ([facility]) Merlene Sadler, BRANCH SERVICE ASSOCIATE: [address], [place] [address], Ph. Attender: Merlene Sadler [facility] Medical 12/18/2019 12:00:00 AM EST HILDA ([facility]) Merlene Sadler, BRANCH SERVICE ASSOCIATE: [address], [place] [address], Ph. Attender: Merlene Sadler [facility] Medical 12/18/2019 12:00:00 AM EST HILDA ([facility]) Merlene Sadler, BRANCH SERVICE ASSOCIATE: [address], [place] [address], Ph. Attender: Merlene Sadler [facility] Medical 12/18/2019 12:00:00 AM EST HILDA ([facility]) Merlene Sadler BRANCH SERVICE ASSOCIATE: [address], [place] [address], Ph. Attender: Merlene Sadler [facility] Medical 12/18/2019 12:00:00 AM EST HILDA ([facility]) Merlene Sadler BRANCH SERVICE ASSOCIATE: [address], [place] [address], Ph. Attender: Merlene Sadler [facility] Medical 12/18/2019 12:00:00 AM EST HILDA ([facility]) Merlene Sadler BRANCH SERVICE ASSOCIATE: [address], [place] [address], Ph. Attender: Merlene Sadler [facility] Medical 12/18/2019 12:00:00 AM EST HILDA ([facility]) Merlene Sadler, BRANCH SERVICE ASSOCIATE: [address], [place] [address], Ph. Attender: Merlene Sadler [facility] Medical 12/18/2019 12:00:00 AM EST HILDA ([facility]) Merlene Sadler BRANCH SERVICE ASSOCIATE: [address], [place] [address], Ph. Attender: Merlene Sadler [facility] Medical 12/18/2019 12:00:00 AM EST HILDA ([facility]) Merlene Sadler BRANCH SERVICE ASSOCIATE: [address], [place] [address], Ph. Attender: Merlene Sadler [facility] Medical 12/18/2019 12:00:00 AM EST HILDA ([facility]) Merlene Sadler, BRANCH SERVICE ASSOCIATE: [address], [place] [address], Ph. Attender: Merlene Sadler [facility] Medical 12/18/2019 12:00:00 AM EST HILDA ([facility]) Merlene Sadler, BRANCH SERVICE ASSOCIATE: [address], [place] [address], Ph. Attender: Merlene Sadler [facility] Medical 12/18/2019 12:00:00 AM EST HILDA ([facility]) Merlene Sadler, [facility]: [address], [place] [address], Ph. Attender: Merlene Sadler [facility] Medical 12/18/2019 12:00:00 AM EST HILDA ([facility]) Merlene Sadler, [facility]: [address], [place] [address], Ph. Attender: Merlene Sadler [facility] Medical 12/18/2019 12:00:00 AM EST HILDA ([facility]) Merlene Sadler, [facility]: [address], [place] [address], Ph. Attender: Merlene Sadler [facility] Medical 12/18/2019 12:00:00 AM EST HILDA ([facility]) Merlene Sadler, [facility]: [address], [place] [address], Ph. Attender: Merlene Sadler [facility] Medical 12/18/2019 12:00:00 AM EST HILDA ([facility]) Merlene Sadler, BRANCH SERVICE ASSOCIATE: [address], [place] [address], Ph. Attender: Merlene Sadler [facility] Medical 12/18/2019 12:00:00 AM EST HILDA ([facility]) Merlene Sadler, BRANCH SERVICE ASSOCIATE: [address], [place] [address], Ph. Attender: Merlene Sadler [facility] Medical 12/18/2019 12:00:00 AM EST HILDA ([facility]) Merlene Sadler, BRANCH SERVICE ASSOCIATE: [address], [place] [address], Ph. Attender: Merlene Sadler [facility] Medical 12/18/2019 12:00:00 AM EST HILDA ([facility]) Merlene aSdler, BRANCH SERVICE ASSOCIATE: [address], [place] [address], Ph. Attender: Merlene Sadler [facility] Medical 12/18/2019 12:00:00 AM EST HILDA ([facility]) Merlene Sadler, BRANCH SERVICE ASSOCIATE: [address], [place] [address], Ph. Attender: Merlene Sadler [facility] Medical 12/18/2019 12:00:00 AM EST HILDA ([facility]) Merlene Sadler, BRANCH SERVICE ASSOCIATE: [address], [place] [address], Ph. Attender: Merlene Sadler [facility] Medical 12/18/2019 12:00:00 AM EST HILDA ([facility]) Merlene Sadler, BRANCH SERVICE ASSOCIATE: [address], [place] [address], Ph. Attender: Merlene Sadler [facility] Medical 12/12/2019 12:00:00 AM EST HILDA ([facility]) Merlene Sadler, BRANCH SERVICE ASSOCIATE: [address], [place] [address], Ph. Attender: Merlene Sadler [facility] Medical 12/12/2019 12:00:00 AM EST HILDA ([facility]) Merlene Sadler, BRANCH SERVICE ASSOCIATE: [address], [place] [address], Ph. Attender: Merlene Sadler [facility] Medical 12/12/2019 12:00:00 AM EST HILDA ([facility]) Merlene Sadler, [facility]: [address], [place] [address], Ph. Attender: Merlene Sadler [facility] Medical 12/12/2019 12:00:00 AM EST HILDA ([facility]) Merlene Sadler, [facility]: [address], [place] [address], Ph. Attender: Merlene Sadler [facility] Medical 12/12/2019 12:00:00 AM EST HILDA ([facility]) Merlene Sadler, BRANCH SERVICE ASSOCIATE: [address], [place] [address], Ph. Attender: Merlene Sadler [facility] Medical 12/12/2019 12:00:00 AM EST HILDA ([facility]) Merlene Sadler, BRANCH SERVICE ASSOCIATE: [address], [place] [address], Ph. Attender: Merlene Sadler [facility] Medical 12/12/2019 12:00:00 AM EST HILDA ([facility]) Merlene Sadler [facility]: [address], [place] [address], Ph. Attender: Merlene Sadler [facility] Medical 12/12/2019 12:00:00 AM EST HILDA ([facility]) Merlene Sadler, BRANCH SERVICE ASSOCIATE: [address], [place] [address], Ph. Attender: Merlene Sadler [facility] Medical 12/12/2019 12:00:00 AM EST HILDA ([facility]) Merlene Sadler [facility]: [address], [place] [address], Ph. Attender: Merlene Sadler [facility] Medical 12/12/2019 12:00:00 AM EST HILDA ([facility]) Merlene Sadler [facility]: [address], [place] [address], Ph. Attender: Merlene Sadler [facility] Medical 12/12/2019 12:00:00 AM EST HILDA ([facility]) Merlene Sadler [facility]: [address], [place] [address], Ph. Attender: Merlene Sadler [facility] Medical 12/12/2019 12:00:00 AM EST HILDA ([facility]) Merlene Sadler, BRANCH SERVICE ASSOCIATE: [address], [place] [address], Ph. Attender: Merlene Sadler [facility] Medical 12/12/2019 12:00:00 AM EST HILDA ([facility]) Merlene Sadler, [facility]: [address], [place] [address], Ph. Attender: Merlene Sadler [facility] [place] [facility] Medical 12/12/2019 12:00:00 AM EST HILDA ([facility]) Merlene Sadler BRANCH SERVICE ASSOCIATE: [address], [place] [address], Ph. Attender: Merlene Sadler [facility] Medical 12/12/2019 12:00:00 AM EST HILDA ([facility]) Merlene Sadler, BRANCH SERVICE ASSOCIATE: [address], [place] [address], Ph. Attender: Merlene Sadler [facility] [place] [facility] Medical 12/12/2019 12:00:00 AM EST HILDA ([facility]) Merlene Sadler, [facility]: [address], [place] [address], Ph. Attender: Merlene Sadler [facility] Medical 12/12/2019 12:00:00 AM EST HILDA ([facility]) Merlene Sadler [facility]: [address], [place] [address], Ph. Attender: Merlene Sadler [facility] Medical 12/12/2019 12:00:00 AM EST HILDA ([facility]) Merlene Sadler, [facility]: [address], [place] [address], Ph. Attender: Merlene Sadler [facility] Medical 12/12/2019 12:00:00 AM EST HILDA ([facility]) Merlene Sadler, [facility]: [address], [place] [address], Ph. Attender: Merlene Sadler [facility] Medical 12/12/2019 12:00:00 AM EST HILDA ([facility]) Merlene Sadler, BRANCH SERVICE ASSOCIATE: [address], [place] [address], Ph. Attender: Merlene Sadler [facility] Medical 12/12/2019 12:00:00 AM EST HILDA ([facility]) Merlene Sadler, BRANCH SERVICE ASSOCIATE: [address], [place] [address], Ph. Attender: Merlene Sadler [facility] Medical 12/12/2019 12:00:00 AM EST HILDA ([facility]) Merlene Sadler, BRANCH SERVICE ASSOCIATE: [address], [place] [address], Ph. Attender: Merlene Sadler [facility] Medical 12/12/2019 12:00:00 AM EST HILDA ([facility]) Merlene Sadler, BRANCH SERVICE ASSOCIATE: [address], [place] [address], Ph. Attender: Merlene Sadler [facility] Medical 12/12/2019 12:00:00 AM EST HILDA ([facility]) Merlene Sadler, BRANCH SERVICE ASSOCIATE: [address], [place] [address], Ph. Attender: Merlene Sadler [facility] Medical 12/12/2019 12:00:00 AM EST HILDA ([facility]) Merlene Sadler, BRANCH SERVICE ASSOCIATE: [address], [place] [address], Ph. Attender: Merlene Sadler [facility] Medical 12/12/2019 12:00:00 AM EST HILDA ([facility]) Merlene Sadler, BRANCH SERVICE ASSOCIATE: [address], [place] [address], Ph. Attender: Merlene Sadler [facility] Medical 12/12/2019 12:00:00 AM EST HILDA ([facility]) Merlene Sadler, BRANCH SERVICE ASSOCIATE: [address], [place] [address], Ph. Attender: Merlene Sadler [facility] Medical 12/12/2019 12:00:00 AM EST HILDA ([facility]) Merlene Sadler, BRANCH SERVICE ASSOCIATE: [address], [place] [address], Ph. Attender: Merlene Sadler [facility] Medical 12/12/2019 12:00:00 AM EST HILDA ([facility]) Merlene Sadler, BRANCH SERVICE ASSOCIATE: [address], [place] [address], Ph. Attender: Merlene Sadler [facility] Medical 12/12/2019 12:00:00 AM EST HILDA ([facility]) Merlene Sadler, BRANCH SERVICE ASSOCIATE: [address], [place] [address], Ph. Attender: Merlene Sadler [facility] Medical 12/12/2019 12:00:00 AM EST HILDA ([facility]) Merlene Sadler, BRANCH SERVICE ASSOCIATE: [address], [place] [address], Ph. Attender: Merlene Sadler [facility] Medical 12/12/2019 12:00:00 AM EST HILDA ([facility]) Merlene Sadler, BRANCH SERVICE ASSOCIATE: [address], [place] [address], Ph. Attender: Merlene Sadler [facility] Medical 12/12/2019 12:00:00 AM EST HILDA ([facility]) Merlene Sadler, BRANCH SERVICE ASSOCIATE: [address], [place] [address], Ph. Attender: Merlene Sadler [facility] Medical 12/12/2019 12:00:00 AM EST HILDA ([facility]) Merlene Sadler BRANCH SERVICE ASSOCIATE: [address], [place] [address], Ph. Attender: Merlene Sadler [facility] Medical 12/12/2019 12:00:00 AM EST HILDA ([facility]) Merlene Sadler, BRANCH SERVICE ASSOCIATE: [address], [place] [address], Ph. Attender: Merlene Sadler [facility] Medical 12/12/2019 12:00:00 AM EST HILDA ([facility]) Merlene Sadler BRANCH SERVICE ASSOCIATE: [address], [place] [address], Ph. Attender: Merlene Sadler [facility] Medical 12/12/2019 12:00:00 AM EST HILDA ([facility]) Merlene Sadler, BRANCH SERVICE ASSOCIATE: [address], [place] [address], Ph. Attender: Merlene Sadler [facility] Medical 12/12/2019 12:00:00 AM EST HILDA ([facility]) Terry Quiroga RPA-C: [address], [place] [address], Ph. Attender: TERRY QUIROGA RPA-C [facility] Medical 12/11/2019 12:00:00 AM EST HILDA ([facility]) Terry Quiroga RPA-C: [address], [place] [address], Ph. Attender: TERRY QUIROGA RPA-C [facility] Medical 12/11/2019 12:00:00 AM EST HILDA ([facility]) Terry Quiroga RPA-C: [address], [place] [address], Ph. Attender: TERRY QUIROGA RPA-C [facility] Medical 12/11/2019 12:00:00 AM EST HILDA ([facility]) Terry Quiroga RPA-C: [address], [place] [address], Ph. Attender: TERRY QUIROGA RPA-C [facility] Medical 12/11/2019 12:00:00 AM EST HILDA ([facility]) Terry Quiroga, RPA-C: [address], [place] [address], Ph. Attender: TERRY QUIROGA RPA-C [facility] Medical 12/11/2019 12:00:00 AM EST HILDA ([facility]) Terry Quiroga RPA-C: [address], [place] [address], Ph. Attender: TERRY QUIROGA RPA-C [facility] Medical 12/11/2019 12:00:00 AM EST HILDA ([facility]) Terry Quiroga RPA-C: [address], [place] [address], Ph. Attender: TERRY QUIROGA RPA-C [facility] Medical 12/11/2019 12:00:00 AM EST HILDA ([facility]) Terry Quiroga RPA-C: [address], [place] [address], Ph. Attender: TERRY QUIROGA RPA-C [facility] Medical 12/11/2019 12:00:00 AM EST HILDA ([facility]) Terry Quiroga RPA-C: [address], [place] [address], Ph. Attender: TERRY QUIROGA RPA-C [facility] Medical 12/11/2019 12:00:00 AM EST HILDA ([facility]) Terry Quiroga RPA-C: [address], [place] [address], Ph. Attender: TERRY QUIROGA RPA-C [facility] Medical 12/11/2019 12:00:00 AM EST HILDA ([facility]) Terry Quiroga RPA-C: [address], [place] [address], Ph. Attender: TERRY QUIROGA RPA-C [facility] Medical 12/11/2019 12:00:00 AM EST HILDA ([facility]) Terry Quiroga RPA-C: [address], [place] [address], Ph. Attender: TERRY QUIROGA RPA-C [facility] Medical 12/11/2019 12:00:00 AM EST HILDA ([facility]) Terry Quiroga RPA-C: [address], [place] [address], Ph. Attender: TERRY QUIROGA RPA-C [facility] Medical 12/11/2019 12:00:00 AM EST HILDA ([facility]) Terry Quiroga, RPA-C: [address], [place] [address], Ph. Attender: TERRY QUIROGA RPA-C [facility] Medical 12/11/2019 12:00:00 AM EST HILDA ([facility]) Terry Quiroga, RPA-C: [address], [place] [address], Ph. Attender: TERRY QUIROGA RPA-C [facility] Medical 12/11/2019 12:00:00 AM EST HILDA ([facility]) Terry Quiroga RPA-C: [address], [place] [address], Ph. Attender: TERRY QUIROGA RPA-C [facility] 12/11/2019 12:00:00 AM EST HILDA ([facility]) Terry Quiroga, RPA-C: [address], [place] [address], Ph. Attender: TERRY QUIROGA RPA-C [facility] 12/11/2019 12:00:00 AM EST HILDA ([facility]) Terry Quiroga RPA-C: [address], [place] [address], Ph. Attender: TERRY QUIROGA RPA-C [facility] 12/11/2019 12:00:00 AM EST HILDA ([facility]) Terry Quiroga RPA-C: [address], [place] [address], Ph. Attender: TERRY QUIROGA RPA-C [facility] 12/11/2019 12:00:00 AM EST HILDA ([facility]) Terry Quiroga RPA-C: [address], [place] [address], Ph. Attender: TERRY QUIROGA RPA-C [facility] 12/11/2019 12:00:00 AM EST IHLDA ([facility]) Terry Quiroga RPA-C: [address], [place] [address], Ph. Attender: TERRY QUIROGA RPA-C [facility] 12/11/2019 12:00:00 AM EST HILDA ([facility]) Terry Quiroga, RPA-C: [address], [place] [address], Ph. Attender: TERRY QUIROGA RPA-C [facility] 12/11/2019 12:00:00 AM EST [facility]ILDA ([facility] [facility]) Terry Quiroga, RPA-C: [address], [place] [address], Ph. Attender: TERRY QUIROGA RPA-C [facility] Medical 12/11/2019 12:00:00 AM EST [place] ([facility]) Terry Quiroga RPA-C: [address], [place] [address], Ph. Attender: TERRY QUIROGA RPA-C [facility] Medical 12/11/2019 12:00:00 AM EST [place] ([facility]) Terry Quiroga RPA-C: [address], [place] [address], Ph. Attender: TERRY QUIROGA RPA-C [facility] Medical 12/11/2019 12:00:00 AM EST [place] ([facility]) Terry Quiroga RPA-C: [address], [place] [address], Ph. Attender: TRERY QUIROGA RPA-C [facility] Medical 12/11/2019 12:00:00 AM EST [place] ([facility]) Terry Quiroga RPA-C: [address], [place] [address], Ph. Attender: TERRY QUIROGA RPA-C [facility] Medical 12/11/2019 12:00:00 AM EST [place] ([facility]) Terry Quiroga, RPA-C: [address], [place] [address], Ph. Attender: TERRY QUIROGA RPA-C [facility] Medical 12/11/2019 12:00:00 AM EST [place] ([facility]) Terry Quiroga RPA-C: [address], [place] [address], Ph. Attender: TERRY QUIROGA RPA-C [facility] Medical 12/11/2019 12:00:00 AM EST [place] ([facility]) Terry Quiroga RPA-C: [address], [place] [address], Ph. Attender: TERRY QUIROGA RPA-C [facility] Medical 12/11/2019 12:00:00 AM EST [place] ([facility]) Terry Quiroga RPA-C: [address], [place] [address], Ph. Attender: TERRY QUIROGA RPA-C [facility] Medical 12/11/2019 12:00:00 AM EST [place] ([facility]) Terry Quiroga RPA-C: [address], [place] [address], Ph. Attender: TERRY QUIROGA RPA-C [facility] Medical 12/11/2019 12:00:00 AM EST [place] ([facility]) Terry Quiroga RPA-C: [address], [place] [address], Ph. Attender: TERRY QUIROGA RPA-C [facility] Medical 12/11/2019 12:00:00 AM EST [place] ([facility]) Terry Quiroga RPA-C: [address], [place] [address], Ph. Attender: TERRY QUIROGA RPA-C [facility] Medical 12/11/2019 12:00:00 AM EST [place] ([facility]) Terry Quiroga RPA-C: [address], [place] [address], Ph. Attender: TERRY QUIROGA RPA-C [facility] Medical 12/11/2019 12:00:00 AM EST [place] ([facility]) Terry Quiroga RPA-C: [address], [place] [address], Ph. Attender: TERRY QUIROGA RPA-C [facility] Medical 12/11/2019 12:00:00 AM EST [place] ([facility]) Terry Quiroga RPA-C: [address], [place] [address], Ph. Attender: TERRY QUIROGA RPA-C [facility] Medical 12/11/2019 12:00:00 AM EST [place] ([facility]) Terry Quiroga RPA-C: [address], [place] [address], Ph. Attender: TERRY QUIROGA RPA-C [facility] Medical 12/11/2019 12:00:00 AM EST [place] ([facility]) Merlene Sadler [facility]: [address], [place] [address], Ph. Attender: Merlene Sadler [facility] Medical 12/03/2019 12:00:00 AM EDT [place] ([facility]) Merlene Sadler, [facility]: [address], [place] [address], Ph. Attender: Merlene Sadler [facility] Medical 12/03/2019 12:00:00 AM EDT [place] ([facility]) Merlene Sadler, [facility]: [address], [place] [address], Ph. Attender: Merlene Sadler [facility] Medical 12/03/2019 12:00:00 AM EDT [place] ([facility]) Merlene Sadler, [employer]: [address], [place] [address], Ph. Attender: Merlene Sadler [facility] Medical 12/03/2019 12:00:00 AM EDT [place] ([facility]) Merlene Sadler, [employer] SERVICE ASSOCIATE: [address], [place] [address], Ph. Attender: Merlene Sadler [facility] Medical 12/03/2019 12:00:00 AM EDT [place] ([facility]) Merlene Sadler, [facility]: [address], [place] [address], Ph. Attender: Merlene Sadler [facility] Medical 12/03/2019 12:00:00 AM EDT [place] ([facility]) Merlene Sadler [facility]: [address], [place] [address], Ph. Attender: Merlene Sadler [facility] Medical 12/03/2019 12:00:00 AM EDT [place] ([facility]) Merlene Sadler, [facility]: [address], [place] [address], Ph. Attender: Merlene Sadler [facility] Medical 12/03/2019 12:00:00 AM EDT [place] ([facility]) Merlene Sadler, [facility]: [address], [place] [address], Ph. Attender: Merlene Sadler [facility] Medical 12/03/2019 12:00:00 AM EDT [place] ([facility]) Merlene Sadler, [facility]: [address], [place] [address], Ph. Attender: Merlene Sadler [facility] Medical 12/03/2019 12:00:00 AM EDT [place] ([facility]) Merlene Sadler, [facility]: [address], [place] [address], Ph. Attender: Merlene Sadler [facility] Medical 12/03/2019 12:00:00 AM EDT [place] ([facility]) Merlene Sadler, [facility]: [address], [place] [address], Ph. Attender: Merlene Sadler [facility] Medical 12/03/2019 12:00:00 AM EDT [place] ([facility]) Merlene Sadler [facility]: [address], [place] [address], Ph. Attender: Merlene Sadler [facility] Medical 12/03/2019 12:00:00 AM EDT [place] ([facility]) Merlene Sadler, [facility]: [address], [place] [address], Ph. Attender: Merlene Sadler [facility] Medical 12/03/2019 12:00:00 AM EDT [place] ([facility]) Merlene Sadler, [facility]: [address], [place] [address], Ph. Attender: Merlene Sadler [facility] Medical 12/03/2019 12:00:00 AM EDT [place] ([facility]) Merlene Sadler, [employer] SERV[employer]OCIATE: [address], [place] [address], Ph. Attender: Merlene Sadler [facility] Medical 12/03/2019 12:00:00 AM EDT [place] ([facility]) Merlene Sadler, [facility]: [address], [place] [address], Ph. Attender: Merlene Sadler [facility] Medical 12/03/2019 12:00:00 AM EDT [place] ([facility]) Merlene Sadler, [facility]: [address], [place] [address], Ph. Attender: Merlene Sadler [facility] Medical 12/03/2019 12:00:00 AM EDT [place] ([facility]) Merlene Sadler [facility]: [address], [place] [address], Ph. Attender: Merlene Sadler [facility] Medical 12/03/2019 12:00:00 AM EDT [place] ([facility]) Merlene Sadler, [facility]: [address], [place] [address], Ph. Attender: Merlene Sadler [facility] Medical 12/03/2019 12:00:00 AM EDT [place] ([facility]) Merlene Sadler, [employer] SERV[employer]OCIATE: [address], [place] [address], Ph. Attender: Merlene Sadler [facility] Medical 12/03/2019 12:00:00 AM EDT [place] ([facility]) Merlene Sadler, [employer] SERVICE ASSOCIATE: [address], [place] [address], Ph. Attender: Merlene Sadler [facility] Medical 12/03/2019 12:00:00 AM EDT [place] ([facility]) Merlene Sadler, [facility]: [address], [place] [address], Ph. Attender: Merlene Sadler [facility] Medical 12/03/2019 12:00:00 AM EDT [place] ([facility]) Merlene Sadler, [employer] SERVICE ASSOCIATE: [address], [place] [address], Ph. Attender: Merlene Sadler [facility] Medical 12/03/2019 12:00:00 AM EDT [place] ([facility]) Merlene Sadler, [employer] SERVICE ASSOCIATE: [address], [place] [address], Ph. Attender: Merlene Sadler [facility] Medical 12/03/2019 12:00:00 AM EDT [place] ([facility]) Merlene Sadler, [facility]: [address], [place] [address], Ph. Attender: Merlene Sadler [facility] Medical 12/03/2019 12:00:00 AM EDT [place] ([facility]) Merlene Sadler, [employer] SERVICE ASSOCIATE: [address], [place] [address], Ph. Attender: Merlene Sadler [facility] Medical 12/03/2019 12:00:00 AM EDT [place] ([facility]) Merlene Sadler, [employer] SERVICE ASSOCIATE: [address], [place] [address], Ph. Attender: Merlene Sadler [facility] Medical 12/03/2019 12:00:00 AM EDT [place] ([facility]) Merlene Sadler, [employer] SERVICE ASSOCIATE: [address], [place] [address], Ph. Attender: Merlene Sadler [facility] Medical 12/03/2019 12:00:00 AM EDT [place] ([facility]) Merlene Sadler, [employer] SERVICE ASSOCIATE: [address], [place] [address], Ph. Attender: Merlene Sadler [facility] Medical 12/03/2019 12:00:00 AM EDT [place] ([facility]) Merlene Sadler, BRAN[employer] SERVICE ASSOCIATE: [address], [place] [address], Ph. Attender: Merlene Sadler [facility] Medical 12/03/2019 12:00:00 AM EDT [place] ([facility]) Merlene Sadler, BR[employer] SERVICE ASSOCIATE: [address], [place] [address], Ph. Attender: Merlene Sadler [facility] Medical 12/03/2019 12:00:00 AM EDT [place] ([facility]) Merlene Sadler, BR[employer] SERVICE ASSOCIATE: [address], [place] [address], Ph. Attender: Merlene Sadler [facility] Medical 12/03/2019 12:00:00 AM EDT [place] ([facility]) Merlene Sadler, BRANCH SERVICE ASSOCIATE: [address], [place] [address], Ph. Attender: Merlene Sadler [facility] Medical 12/03/2019 12:00:00 AM EDT [place] ([facility]) Merlene Sadler, BRAN[employer] SERVICE ASSOCIATE: [address], [place] [address], Ph. Attender: Merlene Sadler [facility] Medical 12/03/2019 12:00:00 AM EDT [place] ([facility]) Merlene Sadler BR[employer] SERVICE ASSOCIATE: [address], [place] [address], Ph. Attender: Merlene Sadler [facility] Medical 12/03/2019 12:00:00 AM EDT [place] ([facility]) Merlene Sadler, [employer] SERVICE ASSOCIATE: [address], [place] [address], Ph. Attender: Merlene Sadler [facility] Medical 12/03/2019 12:00:00 AM EDT [place] ([facility]) Merlene Sadler BR[employer] SERVICE ASSOCIATE: [address], [place] [address], Ph. Attender: Merlene Sadler [facility] Medical 12/03/2019 12:00:00 AM EDT [place] ([facility]) Merlene Sadler, BRANCH SERVICE ASSOCIATE: [address], [place] [address], Ph. Attender: Merlene Sadler [facility] Medical 12/03/2019 12:00:00 AM EDT [place] ([facility]) Merlene Sadler, BRANCH SERVICE ASSOCIATE: [address], [place] [address], Ph. Attender: Merlene Sadler [facility] Medical 11/26/2019 12:00:00 AM EDT [place] ([facility]) Merlene Sadler, BRANCH SERVICE ASSOCIATE: [address], [place] [address], Ph. Attender: Merlene Sadler [facility] Medical 11/26/2019 12:00:00 AM EDT [place] ([facility]) Merlene Sadler, BRANCH SERVICE ASSOCIATE: [address], [place] [address], Ph. Attender: Merlene Sadler [facility] Medical 11/26/2019 12:00:00 AM EDT [place] ([facility]) Merlene Sadler, [employer]CH SERVICE ASSOCIATE: [address], [place] [address], Ph. Attender: Merlene Sadler [facility] Medical 11/26/2019 12:00:00 AM EDT [place] ([facility]) Merlene Sadler, BRANCH SERVICE ASSOCIATE: [address], [place] [address], Ph. Attender: Merlene Sadler [facility] Medical 11/26/2019 12:00:00 AM EDT [place] ([facility]) Merlene Sadler, [employer] SERVICE ASSOCIATE: [address], [place] [address], Ph. Attender: Merlene Sadler [facility] Medical 11/26/2019 12:00:00 AM EDT [place] ([facility]) Merlene Sadler, [facility]: [address], [place] [address], Ph. Attender: Merlene Sadler [facility] Medical 11/26/2019 12:00:00 AM EDT [place] ([facility]) Merlene Sadler, BRAN[employer] SERVICE ASSOCIATE: [address], [place] [address], Ph. Attender: Merlene Sadler [facility] Medical 11/26/2019 12:00:00 AM EDT [place] ([facility]) Merlene Sadler, [facility]: [address], [place] [address], Ph. Attender: Merlene Sadler [facility] Medical 11/26/2019 12:00:00 AM EDT [place] ([facility]) Merlene Sadler, [facility]: [address], [place] [address], Ph. Attender: Merlene Sadler [facility] Medical 11/26/2019 12:00:00 AM EDT [place] ([facility]) Merlene Sadler, [facility]: [address], [place] [address], Ph. Attender: Merlene Sadler [facility] Medical 11/26/2019 12:00:00 AM EDT [place] ([facility]) Merlene Sadler, [facility]: [address], [place] [address], Ph. Attender: Merlene Sadler [facility] Medical 11/26/2019 12:00:00 AM EDT [place] ([facility]) Merlene Sadler [employer] SERVICE ASSOCIATE: [address], [place] [address], Ph. Attender: Merlene Sadler [facility] [place] [facility] Medical 11/26/2019 12:00:00 AM EDT [place] ([facility]) Merlene Sadler, [employer]AN[employer] SERVICE ASSOCIATE: [address], [place] [address], Ph. Attender: Merlene Sadler [facility] Medical 11/26/2019 12:00:00 AM EDT [place] ([facility]) Merlene Sadler, [employer] SERVICE ASSOCIATE: [address], [place] [address], Ph. Attender: Merlene Sadler [facility] Medical 11/26/2019 12:00:00 AM EDT [place] ([facility]) Merlene Sadler, BRAN[employer] SERVICE ASSOCIATE: [address], [place] [address], Ph. Attender: Merlene Sadler [facility] Medical 11/26/2019 12:00:00 AM EDT [place] ([facility]) Merlene Sadler, BRANCH SERVICE ASSOCIATE: [address], [place] [address], Ph. Attender: Merlene Sadler [facility] Medical 11/26/2019 12:00:00 AM EDT [place] ([facility]) Merlene Sadler, BRANCH SERVICE ASSOCIATE: [address], [place] [address], Ph. Attender: Merlene Sadler [facility] Medical 11/26/2019 12:00:00 AM EDT [place] ([facility]) Merlene Sadler, BRAN[employer] SERVICE ASSOCIATE: [address], [place] [address], Ph. Attender: Merlene Sadler [facility] Medical 11/26/2019 12:00:00 AM EDT [place] ([facility]) Merlene Sadler, [employer]AN[employer] SERVICE ASSOCIATE: [address], [place] [address], Ph. Attender: Merlene Sadler [facility] Medical 11/26/2019 12:00:00 AM EDT [place] ([facility]) Merlene Sadler, BRANCH SERVICE ASSOCIATE: [address], [place] [address], Ph. Attender: Merlene Sadler [facility] Medical 11/26/2019 12:00:00 AM EDT [place] ([facility]) Merlene Sadler, BRAN[employer] SERVICE ASSOCIATE: [address], [place] [address], Ph. Attender: Merlene Sadler [facility] Medical 11/26/2019 12:00:00 AM EDT [place] ([facility]) Merlene Sadler, BR[employer] SERVICE ASSOCIATE: [address], [place] [address], Ph. Attender: Merlene Sadler [facility] Medical 11/26/2019 12:00:00 AM EDT [place] ([facility]) Merlene Sadler, BRAN[employer] SERVICE ASSOCIATE: [address], [place] [address], Ph. Attender: Merlene Sadler [facility] Medical 11/26/2019 12:00:00 AM EDT [place] ([facility]) Merlene Sadler, [facility]: [address], [place] [address], Ph. Attender: Merlene Sadler [facility] Medical 11/26/2019 12:00:00 AM EDT [place] ([facility]) Merlene Sadler BRANCH SERVICE ASSOCIATE: [address], [place] [address], Ph. Attender: Merlene Sadler [facility] Medical 11/26/2019 12:00:00 AM EDT [place] ([facility]) Merlene Sadler, [facility]: [address], [place] [address], Ph. Attender: Merlene Sadler [facility] Medical 11/26/2019 12:00:00 AM EDT [place] ([facility]) Merlene Sadler, [facility]: [address], [place] [address], Ph. Attender: Merlene Sadler [facility] Medical 11/26/2019 12:00:00 AM EDT [place] ([facility]) Merlene Sadler [facility]: [address], [place] [address], Ph. Attender: Merlene Sadler [facility] Medical 11/26/2019 12:00:00 AM EDT [place] ([facility]) Merlene Sadler, [facility]: [address], [place] [address], Ph. Attender: Merlene Sadler [facility] Medical 11/26/2019 12:00:00 AM EDT [place] ([facility]) Merlene Sadler, [employer]: [address], [place] [address], Ph. Attender: Merlene Sadler [facility] Medical 11/26/2019 12:00:00 AM EDT [place] ([facility]) Merlene Sadler, [employer]: [address], [place] [address], Ph. Attender: Merlene Sadler [facility] Medical 11/26/2019 12:00:00 AM EDT [place] ([facility]) Merlene Sadler, [employer]: [address], [place] [address], Ph. Attender: Merlene Sadler [facility] Medical 11/26/2019 12:00:00 AM EDT [place] ([facility]) Merlene Sadler, [employer]: [address], [place] [address], Ph. Attender: Merlene Sadler [facility] Medical 11/26/2019 12:00:00 AM EDT [place] ([facility]) Merlene Sadler, [facility] [address], [place] [address], Ph. Attender: Merlene Sadler [facility] Medical 11/26/2019 12:00:00 AM EDT [place] ([facility]) Merlene Sadler, [employer]: [address], [place] [address], Ph. Attender: Merlene Sadler [facility] Medical 11/26/2019 12:00:00 AM EDT [place] ([facility]) Merlene Sadler [facility]: [address], [place] [address], Ph. Attender: Merlene Sadler [facility] Medical 11/26/2019 12:00:00 AM EDT [place] ([facility]) Merlene Sadler, [facility]: [address], [place] [address], Ph. Attender: Merlene Sadler [facility] Medical 11/26/2019 12:00:00 AM EDT [place] ([facility]) Merlene Sadler, [facility]: [address], [place] [address], Ph. Attender: Merlene Sadler [facility] Medical 11/26/2019 12:00:00 AM EDT [place] ([facility]) Merlene Sadler, [facility]: [address], [place] [address], Ph. Attender: Merlene Sadler [facility] Medical 11/26/2019 12:00:00 AM EDT [place] ([facility]) Outpatient Attender: TERRY QUIROGA RPA-[facility] 11/13/2019 08:31:03 AM EDT [facility] Outpatient Attender: TERRY QUIROGA RPA-C [facility] 10/28/2019 04:06:01 PM EDT [facility] Outpatient Attender: TERRY QUIROGA RPA-C [facility] 10/28/2019 08:58:02 AM EDT [facility] Outpatient Attender: TERRY QUIROGA RPA-C [facility] 10/28/2019 08:58:02 AM EDT [facility] Outpatient Attender: TERRY QUIROGA RPA-C [facility] 2019 08:16:01 AM EDT [facility] Outpatient Attender: TERRY QUIROGA RPA-C [facility] 10/14/2019 04:14:00 PM EDT [facility] Outpatient Attender: TERRY QUIROGA RPA[facility]C [facility] 10/14/2019 09:02:02 AM EDT [facility] Outpatient Attender: TERRY QUIROGA [facility] 10/10/2019 02:32:00 PM EDT [facility] Outpatient Attender: TERRY QUIROGA [facility] 10/10/2019 02:32:00 PM EDT [facility] Outpatient Attender: TERRY QUIROGA [facility] 10/06/2019 03:39:01 PM EDT [facility] Outpatient Attender: TERRY QUIROGA [facility] 10/06/2019 08:14:02 AM EDT [facility] Outpatient Attender: TERRY QUIROAG RPA[facility]C [facility] 09/30/2019 10:06:04 AM EDT [facility] Immunizations Vaccine Date Status Description Data Source(s) COVID-19, mRNA, LNP-S, PF, 30 mcg/0.3 mL dose 08/12/2020 11: 30:57 AM EDT completed .3 mL [facility]) COVID-19, mRNA, LNP-S, PF, 30 mcg/0.3 mL dose 08/12/2020 11: 30:57 AM EDT completed .3 mL [facility]) COVID-19, mRNA, LNP-S, PF, 30 mcg/0.3 mL dose 08/12/2020 11: 30:57 AM EDT completed .3 mL [facility]) COVID-19, mRNA, LNP-S, PF, 30 mcg/0.3 mL dose 08/12/2020 11: 30:57 AM EDT completed .3 mL [facility]) COVID-19, mRNA, LNP-S, PF, 30 mcg/0.3 mL dose 08/12/2020 11: 30:57 AM EDT completed .3 mL [facility]) COVID-19, mRNA, LNP-S, PF, 30 mcg/0.3 mL dose 08/12/2020 11: 30:57 AM EDT completed .3 mL [place] ([facility]) COVID-19, mRNA, LNP-S, PF, 30 mcg/0.3 mL dose 08/12/2020 11: 30:57 AM EDT completed .3 mL [facility] ([facility]) COVID-19, mRNA, LNP-S, PF, 30 mcg/0.3 mL dose 08/12/2020 11: 30:57 AM EDT completed .3 mL [facility] ([facility]) COVID-19, mRNA, LNP-S, PF, 30 mcg/0.3 mL dose 08/12/2020 11: 30:57 AM EDT completed .3 mL [place] ([facility]) COVID-19, mRNA, LNP-S, PF, 30 mcg/0.3 mL dose 08/12/2020 11: 30:57 AM EDT completed .3 mL [place] ([facility]) COVID-19, mRNA, LNP-S, PF, 30 mcg/0.3 mL dose 08/12/2020 11: 30:57 AM EDT completed .3 mL [place] ([facility]) COVID-19 VACCINE Pfizer 08/12/2020 12:00:00 AM EDT completed [facility] Vaccine Series Complete: YESThis Data wa s Submitted to [facility] Via [employer]. COVID-19, mRNA, LNP-S, PF, 30 mcg/0.3 mL dose 07/22/2020 06: 41:28 PM EDT completed .3 mL [place] ([facility]) COVID-19, mRNA, LNP-S, PF, 30 mcg/0.3 mL dose 07/22/2020 06: 41:28 PM EDT completed .3 mL [facility] ([facility]) COVID-19, mRNA, LNP-S, PF, 30 mcg/0.3 mL dose 07/22/2020 06: 41:28 PM EDT completed .3 mL [place] ([facility]) COVID-19, mRNA, LNP-S, PF, 30 mcg/0.3 mL dose 07/22/2020 06: 41:28 PM EDT completed .3 mL [place] ([facility]) COVID-19, mRNA, LNP-S, PF, 30 mcg/0.3 mL dose 07/22/2020 06: 41:28 PM EDT completed .3 mL [place] ([facility]) COVID-19, mRNA, LNP-S, PF, 30 mcg/0.3 mL dose 07/22/2020 06: 41:28 PM EDT completed .3 mL [place] ([facility]) COVID-19, mRNA, LNP-S, PF, 30 mcg/0.3 mL dose 07/22/2020 06: 41:28 PM EDT completed .3 mL [place] ([facility]) COVID-19, mRNA, LNP-S, PF, 30 mcg/0.3 mL dose 07/22/2020 06: 41:28 PM EDT completed .3 mL [place] ([facility]) COVID-19, mRNA, LNP-S, PF, 30 mcg/0.3 mL dose 07/22/2020 06: 41:28 PM EDT completed .3 mL [place] ([facility]) COVID-19, mRNA, LNP-S, PF, 30 mcg/0.3 mL dose 07/22/2020 06: 41:28 PM EDT completed .3 mL [place] ([facility]) COVID-19, mRNA, LNP-S, PF, 30 mcg/0.3 mL dose 07/22/2020 06: 41:28 PM EDT completed .3 mL [place] ([facility]) COVID-19, mRNA, LNP-S, PF, 30 mcg/0.3 mL dose 07/22/2020 06: 41:28 PM EDT completed .3 mL [place] ([facility]) COVID-19, mRNA, LNP-S, PF, 30 mcg/0.3 mL dose 07/22/2020 06: 41:28 PM EDT completed .3 mL [place] ([facility]) COVID-19, mRNA, LNP-S, PF, 30 mcg/0.3 mL dose 07/22/2020 06: 41:28 PM EDT completed .3 mL [place] ([facility]) COVID-19 VACCINE Pfizer 07/22/2020 12:00:00 AM EDT completed [facility] Vaccine Series Complete: NOThis Data was Submitted to [facility] Via [employer]. Medications Medication Brand Name Start Date Product Form Dose Route Admi nistrative Instructions Pharmacy Instructions Status Indications Reaction Description Data Source(s) Naproxen 250 MG Oral Tablet Naproxen 05/20/2020 12:00:00 AM EDT ORAL active [facility] ([facility], ) Amoxicillin 875 MG / Clavulanate 125 MG Oral Tablet amoxicillin 875 mg-potassium clavulanate 125 mg tablet TAKE 1 TABLET BY MOUTH TWICE DAILY amoxicillin 875 mg- potassium clavulanate 125 mg tablet TAKE 1 TABLET BY MOUTH TWICE DAILY 04/02/2020 12:00:00 AM EST completed amoxicillin 875 MG / clavulanate 125 MG Oral Tablet [place] ([facility]) Amoxicillin 875 MG / Clavulanate 125 MG Oral Tablet amoxicillin 875 mg-potassium clavulanate 125 mg tablet TAKE 1 TABLET BY MOUTH TWICE DAILY amoxicillin 875 mg- potassium clavulanate 125 mg tablet TAKE 1 TABLET BY MOUTH TWICE DAILY 04/02/2020 12:00:00 AM EST completed amoxicillin 875 MG / clavulanate 125 MG Oral Tablet [place] ([facility]) Amoxicillin 875 MG / Clavulanate 125 MG Oral Tablet amoxicillin 875 mg-potassium clavulanate 125 mg tablet TAKE 1 TABLET BY MOUTH TWICE DAILY amoxicillin 875 mg- potassium clavulanate 125 mg tablet TAKE 1 TABLET BY MOUTH TWICE DAILY 04/02/2020 12:00:00 AM EST completed amoxicillin 875 MG / clavulanate 125 MG Oral Tablet [place] ([facility]) Amoxicillin 875 MG / Clavulanate 125 MG Oral Tablet amoxicillin 875 mg-potassium clavulanate 125 mg tablet TAKE 1 TABLET BY MOUTH TWICE DAILY amoxicillin 875 mg- potassium clavulanate 125 mg tablet TAKE 1 TABLET BY MOUTH TWICE DAILY 04/02/2020 12:00:00 AM EST completed amoxicillin 875 MG / clavulanate 125 MG Oral Tablet [place] ([facility]) Amoxicillin 875 MG / Clavulanate 125 MG Oral Tablet amoxicillin 875 mg-potassium clavulanate 125 mg tablet TAKE 1 TABLET BY MOUTH TWICE DAILY amoxicillin 875 mg- potassium clavulanate 125 mg tablet TAKE 1 TABLET BY MOUTH TWICE DAILY 04/02/2020 12:00:00 AM EST completed amoxicillin 875 MG / clavulanate 125 MG Oral Tablet [facility] ([facility]) Amoxicillin 875 MG / Clavulanate 125 MG Oral Tablet amoxicillin 875 mg-potassium clavulanate 125 mg tablet TAKE 1 TABLET BY MOUTH TWICE DAILY amoxicillin 875 mg- potassium clavulanate 125 mg tablet TAKE 1 TABLET BY MOUTH TWICE DAILY 04/02/2020 12:00:00 AM EST completed amoxicillin 875 MG / clavulanate 125 MG Oral Tablet [facility] ([facility]) Amoxicillin 875 MG / Clavulanate 125 MG Oral Tablet amoxicillin 875 mg-potassium clavulanate 125 mg tablet TAKE 1 TABLET BY MOUTH TWICE DAILY amoxicillin 875 mg- potassium clavulanate 125 mg tablet TAKE 1 TABLET BY MOUTH TWICE DAILY 04/02/2020 12:00:00 AM EST completed amoxicillin 875 MG / clavulanate 125 MG Oral Tablet [facility] ([facility]) Amoxicillin 875 MG / Clavulanate 125 MG Oral Tablet amoxicillin 875 mg-potassium clavulanate 125 mg tablet TAKE 1 TABLET BY MOUTH TWICE DAILY amoxicillin 875 mg- potassium clavulanate 125 mg tablet TAKE 1 TABLET BY MOUTH TWICE DAILY 04/02/2020 12:00:00 AM EST completed amoxicillin 875 MG / clavulanate 125 MG Oral Tablet [facility] ([facility]) Amoxicillin 875 MG / Clavulanate 125 MG Oral Tablet amoxicillin 875 mg-potassium clavulanate 125 mg tablet TAKE 1 TABLET BY MOUTH TWICE DAILY amoxicillin 875 mg- potassium clavulanate 125 mg tablet TAKE 1 TABLET BY MOUTH TWICE DAILY 04/02/2020 12:00:00 AM EST completed amoxicillin 875 MG / clavulanate 125 MG Oral Tablet [facility] ([facility]) Amoxicillin 875 MG / Clavulanate 125 MG Oral Tablet amoxicillin 875 mg-potassium clavulanate 125 mg tablet TAKE 1 TABLET BY MOUTH TWICE DAILY amoxicillin 875 mg- potassium clavulanate 125 mg tablet TAKE 1 TABLET BY MOUTH TWICE DAILY 04/02/2020 12:00:00 AM EST completed amoxicillin 875 MG / clavulanate 125 MG Oral Tablet [facility] ([facility]) Amoxicillin 875 MG / Clavulanate 125 MG Oral Tablet amoxicillin 875 mg-potassium clavulanate 125 mg tablet TAKE 1 TABLET BY MOUTH TWICE DAILY amoxicillin 875 mg- potassium clavulanate 125 mg tablet TAKE 1 TABLET BY MOUTH TWICE DAILY 04/02/2020 12:00:00 AM EST completed amoxicillin 875 MG / clavulanate 125 MG Oral Tablet [facility] ([facility]) Amoxicillin 875 MG / Clavulanate 125 MG Oral Tablet amoxicillin 875 mg-potassium clavulanate 125 mg tablet TAKE 1 TABLET BY MOUTH TWICE DAILY amoxicillin 875 mg- potassium clavulanate 125 mg tablet TAKE 1 TABLET BY MOUTH TWICE DAILY 04/02/2020 12:00:00 AM EST completed amoxicillin 875 MG / clavulanate 125 MG Oral Tablet [facility] ([facility]) Amoxicillin 875 MG / Clavulanate 125 MG Oral Tablet amoxicillin 875 mg-potassium clavulanate 125 mg tablet TAKE 1 TABLET BY MOUTH TWICE DAILY amoxicillin 875 mg- potassium clavulanate 125 mg tablet TAKE 1 TABLET BY MOUTH TWICE DAILY 04/02/2020 12:00:00 AM EST completed amoxicillin 875 MG / clavulanate 125 MG Oral Tablet [facility] ([facility]) Amoxicillin 875 MG / Clavulanate 125 MG Oral Tablet amoxicillin 875 mg-potassium clavulanate 125 mg tablet TAKE 1 TABLET BY MOUTH TWICE DAILY amoxicillin 875 mg- potassium clavulanate 125 mg tablet TAKE 1 TABLET BY MOUTH TWICE DAILY 04/02/2020 12:00:00 AM EST completed amoxicillin 875 MG / clavulanate 125 MG Oral Tablet [facility] ([facility]) Amoxicillin 875 MG / Clavulanate 125 MG Oral Tablet amoxicillin 875 mg-potassium clavulanate 125 mg tablet TAKE 1 TABLET BY MOUTH TWICE DAILY amoxicillin 875 mg- potassium clavulanate 125 mg tablet TAKE 1 TABLET BY MOUTH TWICE DAILY 04/02/2020 12:00:00 AM EST completed amoxicillin 875 MG / clavulanate 125 MG Oral Tablet [facility] ([facility]) Amoxicillin 875 MG / Clavulanate 125 MG Oral Tablet amoxicillin 875 mg-potassium clavulanate 125 mg tablet TAKE 1 TABLET BY MOUTH TWICE DAILY amoxicillin 875 mg- potassium clavulanate 125 mg tablet TAKE 1 TABLET BY MOUTH TWICE DAILY 04/02/2020 12:00:00 AM EST completed amoxicillin 875 MG / clavulanate 125 MG Oral Tablet [facility] ([facility]) Amoxicillin 875 MG / Clavulanate 125 MG Oral Tablet amoxicillin 875 mg-potassium clavulanate 125 mg tablet TAKE 1 TABLET BY MOUTH TWICE DAILY amoxicillin 875 mg- potassium clavulanate 125 mg tablet TAKE 1 TABLET BY MOUTH TWICE DAILY 04/02/2020 12:00:00 AM EST completed amoxicillin 875 MG / clavulanate 125 MG Oral Tablet [facility] ([facility]) Amoxicillin 875 MG / Clavulanate 125 MG Oral Tablet amoxicillin 875 mg-potassium clavulanate 125 mg tablet TAKE 1 TABLET BY MOUTH TWICE DAILY amoxicillin 875 mg- potassium clavulanate 125 mg tablet TAKE 1 TABLET BY MOUTH TWICE DAILY 04/02/2020 12:00:00 AM EST completed amoxicillin 875 MG / clavulanate 125 MG Oral Tablet [facility] ([facility]) Amoxicillin 875 MG / Clavulanate 125 MG Oral Tablet amoxicillin 875 mg-potassium clavulanate 125 mg tablet TAKE 1 TABLET BY MOUTH TWICE DAILY amoxicillin 875 mg- potassium clavulanate 125 mg tablet TAKE 1 TABLET BY MOUTH TWICE DAILY 04/02/2020 12:00:00 AM EST completed amoxicillin 875 MG / clavulanate 125 MG Oral Tablet [facility] ([facility]) Amoxicillin 875 MG / Clavulanate 125 MG Oral Tablet amoxicillin 875 mg-potassium clavulanate 125 mg tablet TAKE 1 TABLET BY MOUTH TWICE DAILY amoxicillin 875 mg- potassium clavulanate 125 mg tablet TAKE 1 TABLET BY MOUTH TWICE DAILY 04/02/2020 12:00:00 AM EST completed amoxicillin 875 MG / clavulanate 125 MG Oral Tablet [facility] ([facility]) Amoxicillin 875 MG / Clavulanate 125 MG Oral Tablet amoxicillin 875 mg-potassium clavulanate 125 mg tablet TAKE 1 TABLET BY MOUTH TWICE DAILY amoxicillin 875 mg- potassium clavulanate 125 mg tablet TAKE 1 TABLET BY MOUTH TWICE DAILY 04/02/2020 12:00:00 AM EST completed amoxicillin 875 MG / clavulanate 125 MG Oral Tablet [facility] ([facility]) Amoxicillin 875 MG / Clavulanate 125 MG Oral Tablet amoxicillin 875 mg-potassium clavulanate 125 mg tablet TAKE 1 TABLET BY MOUTH TWICE DAILY amoxicillin 875 mg- potassium clavulanate 125 mg tablet TAKE 1 TABLET BY MOUTH TWICE DAILY 04/02/2020 12:00:00 AM EST completed amoxicillin 875 MG / clavulanate 125 MG Oral Tablet [facility] ([facility]) Amoxicillin 875 MG / Clavulanate 125 MG Oral Tablet amoxicillin 875 mg-potassium clavulanate 125 mg tablet TAKE 1 TABLET BY MOUTH TWICE DAILY amoxicillin 875 mg- potassium clavulanate 125 mg tablet TAKE 1 TABLET BY MOUTH TWICE DAILY 04/02/2020 12:00:00 AM EST completed amoxicillin 875 MG / clavulanate 125 MG Oral Tablet [place] ([facility]) atorvastatin 20 MG Oral Tablet Atorvastatin Calcium 01/10/2020 1 2:00:00 AM EST ORAL active [facility] ( [facility]) cetirizine hydrochloride 10 MG Oral Tablet Cetirizine HCL 01/06/2020 12:00:00 AM EST ORAL active [facility] ([facility]) Lorazepam 1 MG Oral Tablet Lorazepam 01/06/2020 12:00:00 AM EST ORAL active [facility] ([facility]) Escitalopram 20 MG Oral Tablet Escitalopram Oxalate 01/06/2020 1 2:00:00 AM EST ORAL active [facility] ( [facility]) Trazodone Hydrochloride 50 MG Oral Tablet Trazodone HCL 01/06/2020 12:00:00 AM EST ORAL active [facility] ([facility]) Hydroxyzine Hydrochloride 25 MG Oral Tablet Hydroxyzine HCL 01/06/2020 12:00:00 AM EST ORAL active [facility] ([facility]) Omeprazole 20 MG Delayed Release Oral Capsule Omeprazole 01/06/2020 12:00:00 AM EST ORAL active [facility] ([facility]) Escitalopram 10 MG Oral Tablet [Lexapro] Lexapro 10 mg tablet take one tablet po daily Lexapro 10 mg tablet take one tablet po daily 10/28/2019 12: 00:00 AM EDT completed escitalopram 1 0 MG Oral Tablet [Lexapro] [facility] ([facility]) Escitalopram 10 MG Oral Tablet [Lexapro] Lexapro 10 mg tablet take one tablet po daily Lexapro 10 mg tablet take one tablet po daily 10/28/2019 12: 00:00 AM EDT completed escitalopram 1 0 MG Oral Tablet [Lexapro] [facility] ([facility]) Escitalopram 10 MG Oral Tablet [Lexapro] Lexapro 10 mg tablet take one tablet po daily Lexapro 10 mg tablet take one tablet po daily 10/28/2019 12: 00:00 AM EDT completed escitalopram 1 0 MG Oral Tablet [Lexapro] [facility] ([facility]) Escitalopram 10 MG Oral Tablet [Lexapro] Lexapro 10 mg tablet take one tablet po daily Lexapro 10 mg tablet take one tablet po daily 10/28/2019 12: 00:00 AM EDT completed escitalopram 1 0 MG Oral Tablet [Lexapro] [facility] ([facility]) Escitalopram 10 MG Oral Tablet [Lexapro] Lexapro 10 mg tablet take one tablet po daily Lexapro 10 mg tablet take one tablet po daily 10/28/2019 12: 00:00 AM EDT completed escitalopram 1 0 MG Oral Tablet [Lexapro] [facility] ([facility]) Escitalopram 10 MG Oral Tablet [Lexapro] Lexapro 10 mg tablet take one tablet po daily Lexapro 10 mg tablet take one tablet po daily 10/28/2019 12: 00:00 AM EDT completed escitalopram 1 0 MG Oral Tablet [Lexapro] [facility] ([facility]) Escitalopram 10 MG Oral Tablet [Lexapro] Lexapro 10 mg tablet take one tablet po daily Lexapro 10 mg tablet take one tablet po daily 10/28/2019 12: 00:00 AM EDT completed escitalopram 1 0 MG Oral Tablet [Lexapro] [facility] ([facility]) Escitalopram 10 MG Oral Tablet [Lexapro] Lexapro 10 mg tablet take one tablet po daily Lexapro 10 mg tablet take one tablet po daily 10/28/2019 12: 00:00 AM EDT completed escitalopram 1 0 MG Oral Tablet [Lexapro] [facility] ([facility]) Escitalopram 10 MG Oral Tablet [Lexapro] Lexapro 10 mg tablet take one tablet po daily Lexapro 10 mg tablet take one tablet po daily 10/28/2019 12: 00:00 AM EDT completed escitalopram 1 0 MG Oral Tablet [Lexapro] [facility] ([facility]) Escitalopram 10 MG Oral Tablet [Lexapro] Lexapro 10 mg tablet take one tablet po daily Lexapro 10 mg tablet take one tablet po daily 10/28/2019 12: 00:00 AM EDT completed escitalopram 1 0 MG [facility] Oral Tablet [Lexapro] Lexapro 10 mg tablet take one tablet po daily Lexapro 10 mg tablet take one tablet po daily 10/28/2019 12: 00:00 AM EDT completed escitalopram 1 0 MG Oral Tablet [Lexapro] [facility]) Escitalopram 10 MG Oral Tablet [Lexapro] Lexapro 10 mg tablet take one tablet po daily Lexapro 10 mg tablet take one tablet po daily 10/28/2019 12: 00:00 AM EDT completed escitalopram 1 0 MG Oral Tablet [Lexapro] [facility] ([facility]) Escitalopram 10 MG Oral Tablet [Lexapro] Lexapro 10 mg tablet take one tablet po daily Lexapro 10 mg tablet take one tablet po daily 10/28/2019 12: 00:00 AM EDT completed escitalopram 1 0 MG Oral Tablet [Lexapro] [facility] ([facility]) Escitalopram 10 MG Oral Tablet [Lexapro] Lexapro 10 mg tablet take one tablet po daily Lexapro 10 mg tablet take one tablet po daily 10/28/2019 12: 00:00 AM EDT completed escitalopram 1 0 MG Oral Tablet [Lexapro] [facility] ([facility]) Escitalopram 10 MG Oral Tablet [Lexapro] Lexapro 10 mg tablet take one tablet po daily Lexapro 10 mg tablet take one tablet po daily 10/28/2019 12: 00:00 AM EDT completed escitalopram 1 0 MG Oral Tablet [Lexapro] [facility] ([facility]) Escitalopram 10 MG Oral Tablet [Lexapro] Lexapro 10 mg tablet take one tablet po daily Lexapro 10 mg tablet take one tablet po daily 10/28/2019 12: 00:00 AM EDT completed escitalopram 1 0 MG Oral Tablet [Lexapro] [facility] ([facility]) Escitalopram 10 MG Oral Tablet [Lexapro] Lexapro 10 mg tablet take one tablet po daily Lexapro 10 mg tablet take one tablet po daily 10/28/2019 12: 00:00 AM EDT completed escitalopram 1 0 MG Oral Tablet [Lexapro] [facility] ([facility]) Escitalopram 10 MG Oral Tablet [Lexapro] Lexapro 10 mg tablet take one tablet po daily Lexapro 10 mg tablet take one tablet po daily 10/28/2019 12: 00:00 AM EDT completed escitalopram 1 0 MG Oral Tablet [Lexapro] [place] ([facility]) Escitalopram 10 MG Oral Tablet [Lexapro] Lexapro 10 mg tablet take one tablet po daily Lexapro 10 mg tablet take one tablet po daily 10/28/2019 12: 00:00 AM EDT completed escitalopram 1 0 MG Oral Tablet [Lexapro] [facility] ([facility]) Escitalopram 10 MG Oral Tablet [Lexapro] Lexapro 10 mg tablet take one tablet po daily Lexapro 10 mg tablet take one tablet po daily 10/28/2019 12: 00:00 AM EDT completed escitalopram 1 0 MG Oral Tablet [Lexapro] [facility] ([facility]) Escitalopram 10 MG Oral Tablet [Lexapro] Lexapro 10 mg tablet take one tablet po daily Lexapro 10 mg tablet take one tablet po daily 10/28/2019 12: 00:00 AM EDT completed escitalopram 1 0 MG Oral Tablet [Lexapro] [facility] ([facility]) Escitalopram 10 MG Oral Tablet [Lexapro] Lexapro 10 mg tablet take one tablet po daily Lexapro 10 mg tablet take one tablet po daily 10/28/2019 12: 00:00 AM EDT completed escitalopram 1 0 MG Oral Tablet [Lexapro] [facility] ([facility]) Escitalopram 10 MG Oral Tablet [Lexapro] Lexapro 10 mg tablet take one tablet po daily Lexapro 10 mg tablet take one tablet po daily 10/28/2019 12: 00:00 AM EDT completed escitalopram 1 0 MG Oral Tablet [Lexapro] [facility] ([facility]) Escitalopram 10 MG Oral Tablet [Lexapro] Lexapro 10 mg tablet Take 1 tablet by mouth once daily Lexapro 10 mg tablet Take 1 tablet by mouth once daily 09/10/2019 12:00:00 AM EDT completed escitalopram 10 MG Oral Tablet [Lexapro] [facility] ([facility]) Escitalopram 10 MG Oral Tablet [Lexapro] Lexapro 10 mg tablet Take 1 tablet by mouth once daily Lexapro 10 mg tablet Take 1 tablet by mouth once daily 09/10/2019 12:00:00 AM EDT completed escitalopram 10 MG Oral Tablet [Lexapro] [facility] ([facility]) Trazodone Hydrochloride 50 MG Oral Table t trazodone 50 mg tablet TAKE 1 TABLET BY MOUTH ONCE DAILY AT BEDTIME trazodone 50 mg tablet TAKE 1 TABLET BY MOUTH ONCE DAILY AT BEDTIME completed trazodone hydrochloride 50 MG Oral Tablet [facility] ([facility]) Trazodone Hydrochloride 50 MG Oral Table t trazodone 50 mg tablet TAKE 1 TABLET BY MOUTH ONCE DAILY AT BEDTIME trazodone 50 mg tablet TAKE 1 TABLET BY MOUTH ONCE DAILY AT BEDTIME completed trazodone hydrochloride 50 MG Oral Tablet [facility] ([facility]) Hydroxyzine Hydrochloride 10 MG Oral Tab let hydroxyzine HCl 10 mg tablet TAKE 1 TO 2 TABLETS BY MOUTH EVERY 6 HOURS NEEDED hydroxyzine HCl 10 mg tablet TAKE 1 TO 2 TABLETS BY MOUTH EVERY 6 HOURS NEEDED completed hydroxyzine hydrochloride 10 MG Oral Tablet [facility] ([facility]) Trazodone Hydrochloride 50 MG Oral Table t trazodone 50 mg tablet TAKE 1 TABLET BY MOUTH ONCE DAILY AT BEDTIME trazodone 50 mg tablet TAKE 1 TABLET BY MOUTH ONCE DAILY AT BEDTIME completed trazodone hydrochloride 50 MG Oral Tablet [facility] ([facility]) Trazodone Hydrochloride 50 MG Oral Table t trazodone 50 mg tablet TAKE 1 TABLET BY MOUTH ONCE DAILY AT BEDTIME trazodone 50 mg tablet TAKE 1 TABLET BY MOUTH ONCE DAILY AT BEDTIME completed trazodone hydrochloride 50 MG Oral Tablet [facility] ([facility]) cetirizine hydrochloride 10 MG Oral Tabl et cetirizine 10 mg tablet TAKE 1 TABLET BY MOUTH ONCE DAILY cetirizine 10 mg tablet TAKE 1 TABLET BY MOUTH ONCE DA ANTHONY completed cetirizine hyd rochloride 10 MG Oral Tablet [facility] ([facility]) cetirizine hydrochloride 10 MG Oral Tabl et cetirizine 10 mg tablet TAKE 1 TABLET BY MOUTH ONCE DAILY cetirizine 10 mg tablet TAKE 1 TABLET BY MOUTH ONCE DA ANTHONY completed cetirizine hyd rochloride 10 MG Oral Tablet [place] ([facility]) Hydroxyzine Hydrochloride 10 MG Oral Tab let hydroxyzine HCl 10 mg tablet TAKE 1 TO 2 TABLETS BY MOUTH EVERY 6 HOURS NEEDED hydroxyzine HCl 10 mg tablet TAKE 1 TO 2 TABLETS BY MOUTH EVERY 6 HOURS NEEDED completed hydroxyzine hydrochloride 10 MG Oral Tablet [place] ([facility]) fluticasone propionate 50 mcg/actuation nasal spray,suspension [place] 1 spray every day by intranasal route as needed. [id number] spray(s) completed fluticasone propionate 0.05 MG/ACTUAT Me tered Dose Nasal [place] [facility] ([facility]) Trazodone Hydrochloride 50 MG Oral Table t trazodone 50 mg tablet TAKE 1 TABLET BY MOUTH ONCE DAILY AT BEDTIME trazodone 50 mg tablet TAKE 1 TABLET BY MOUTH ONCE DAILY AT BEDTIME completed trazodone hydrochloride 50 MG Oral Tablet [facility] ([facility]) Escitalopram 10 MG Oral Tablet escitalop yuko 10 mg tablet TAKE 1 TABLET BY MOUTH ONCE DAILY escitalopram 10 mg tablet TAKE 1 TABLET BY MOUTH ONCE DAILY completed escitalopram 10 MG Oral T ablet [facility] ([facility]) cetirizine hydrochloride 10 MG Oral Tabl et cetirizine 10 mg tablet TAKE 1 TABLET BY MOUTH ONCE DAILY cetirizine 10 mg tablet TAKE 1 TABLET BY MOUTH ONCE DA ANTHONY completed cetirizine hyd rochloride 10 MG Oral Tablet [facility] ([facility]) cetirizine hydrochloride 10 MG Oral Tabl et cetirizine 10 mg tablet TAKE 1 TABLET BY MOUTH ONCE DAILY cetirizine 10 mg tablet TAKE 1 TABLET BY MOUTH ONCE DA ANTHONY completed cetirizine hyd rochloride 10 MG Oral Tablet [facility] ([facility]) cetirizine hydrochloride 10 MG Oral Tabl et cetirizine 10 mg tablet TAKE 1 TABLET BY MOUTH ONCE DAILY cetirizine 10 mg tablet TAKE 1 TABLET BY MOUTH ONCE DA ANTHONY completed cetirizine hyd rochloride 10 MG Oral Tablet [facility] ([facility]) Hydroxyzine Hydrochloride 10 MG Oral Tab let hydroxyzine HCl 10 mg tablet TAKE 1 TO 2 TABLETS BY MOUTH EVERY 6 HOURS NEEDED hydroxyzine HCl 10 mg tablet TAKE 1 TO 2 TABLETS BY MOUTH EVERY 6 HOURS NEEDED completed hydroxyzine hydrochloride 10 MG Oral Tablet [facility] ([facility]) cetirizine hydrochloride 10 MG Oral Tabl et cetirizine 10 mg tablet TAKE 1 TABLET BY MOUTH ONCE DAILY cetirizine 10 mg tablet TAKE 1 TABLET BY MOUTH ONCE DA ANTHONY completed cetirizine hyd rochloride 10 MG Oral Tablet [facility] ([facility]) cetirizine hydrochloride 10 MG Oral Tabl et cetirizine 10 mg tablet TAKE 1 TABLET BY MOUTH ONCE DAILY cetirizine 10 mg tablet TAKE 1 TABLET BY MOUTH ONCE DA ANTHONY completed cetirizine hyd rochloride 10 MG Oral Tablet [facility] ([facility]) cetirizine hydrochloride 10 MG Oral Tabl et cetirizine 10 mg tablet TAKE 1 TABLET BY MOUTH ONCE DAILY cetirizine 10 mg tablet TAKE 1 TABLET BY MOUTH ONCE DA ANTOHNY completed cetirizine hyd rochloride 10 MG Oral Tablet [facility] ([facility]) albuterol sulfate HFA 90 mcg/actuation a erosol inhaler INHALE 2 PUFFS BY MOUTH EVERY 4 HOURS NEEDED [id number] completed [id number] ACTUAT albuterol 0.09 MG/ACTUAT Metered Dose Inhaler [facility] ([facility]) Trazodone Hydrochloride 50 MG Oral Table t trazodone 50 mg tablet TAKE 1 TABLET BY MOUTH ONCE DAILY AT BEDTIME trazodone 50 mg tablet TAKE 1 TABLET BY MOUTH ONCE DAILY AT BEDTIME completed [facility] hydrochloride [facility] Escital[facility] 10 MG Oral Tablet escitalop yuko 10 mg tablet TAKE 1 TABLET BY MOUTH ONCE DAILY escitalopram 10 mg tablet TAKE 1 TABLET BY MOUTH ONCE DAILY completed escitalopram 10 MG Oral T ablet [facility] ([facility]) Trazodone Hydrochloride 50 MG Oral Table t trazodone 50 mg tablet TAKE 1 TABLET BY MOUTH ONCE DAILY AT BEDTIME trazodone 50 mg tablet TAKE 1 TABLET BY MOUTH ONCE DAILY AT BEDTIME completed trazodone hydrochloride 50 MG Oral Tablet [facility] ([facility]) Trazodone Hydrochloride 50 MG Oral Table t trazodone 50 mg tablet TAKE 1 TABLET BY MOUTH ONCE DAILY AT BEDTIME trazodone 50 mg tablet TAKE 1 TABLET BY MOUTH ONCE DAILY AT BEDTIME completed trazodone hydrochloride 50 MG Oral Tablet [facility] ([facility]) Hydroxyzine Hydrochloride 10 MG Oral Tab let hydroxyzine HCl 10 mg tablet TAKE 1 TO 2 TABLETS BY MOUTH EVERY 6 HOURS NEEDED hydroxyzine HCl 10 mg tablet TAKE 1 TO 2 TABLETS BY MOUTH EVERY 6 HOURS NEEDED completed hydroxyzine hydrochloride 10 MG Oral Tablet [facility] ([facility]) cetirizine hydrochloride 10 MG Oral Tabl et cetirizine 10 mg tablet TAKE 1 TABLET BY MOUTH ONCE DAILY cetirizine 10 mg tablet TAKE 1 TABLET BY MOUTH ONCE DA ANTHONY completed cetirizine hyd rochloride 10 MG Oral Tablet [facility] ([facility]) Escitalopram 10 MG Oral Tablet escitalop yuko 10 mg tablet TAKE 1 TABLET BY MOUTH ONCE DAILY escitalopram 10 mg tablet TAKE 1 TABLET BY MOUTH ONCE DAILY completed escitalopram 10 MG Oral T ablet [facility] ([facility]) cetirizine hydrochloride 10 MG Oral Tabl et cetirizine 10 mg tablet TAKE 1 TABLET BY MOUTH ONCE DAILY cetirizine 10 mg tablet TAKE 1 TABLET BY MOUTH ONCE DA ANTHONY completed cetirizine hyd rochloride 10 MG Oral Tablet [facility] ([facility]) Hydroxyzine Hydrochloride 10 MG Oral Tab let hydroxyzine HCl 10 mg tablet TAKE 1 TO 2 TABLETS BY MOUTH EVERY 6 HOURS NEEDED hydroxyzine HCl 10 mg tablet TAKE 1 TO 2 TABLETS BY MOUTH EVERY 6 HOURS NEEDED completed hydroxyzine hydrochloride 10 MG Oral Tablet [facility] ([facility]) Lorazepam 1 MG Oral Tablet lorazepam 1 m g tablet TAKE 1 TABLET BY MOUTH ONCE DAILY NEEDED . DO NOT EXCEED 1 PER 24 HOURS lorazepam 1 mg tablet TAKE 1 TABLET BY MOUTH ONCE DAILY NEEDED . DO NOT EXCEED 1 PER 24 HOURS completed lorazepam 1 MG Oral Tablet ATHEN A ([facility]) cetirizine hydrochloride 10 MG Oral Tabl et cetirizine 10 mg tablet TAKE 1 TABLET BY MOUTH ONCE DAILY cetirizine 10 mg tablet TAKE 1 TABLET BY MOUTH ONCE DA ANTHONY completed cetirizine hyd rochloride 10 MG Oral Tablet [facility] ([facility]) cetirizine hydrochloride 10 MG Oral Tabl et cetirizine 10 mg tablet TAKE 1 TABLET BY MOUTH ONCE DAILY cetirizine 10 mg tablet TAKE 1 TABLET BY MOUTH ONCE DA ANTHONY completed cetirizine hyd rochloride 10 MG Oral Tablet [facility] ([facility]) Sumatriptan 25 MG Oral Tablet sumatripta n 25 mg tablet Take 1 tablet po at onset of migraine, repeat in 2 hrs if headache persists; MDD 2 tablets sumatriptan 25 mg tablet Take 1 tablet po at onset of migraine, repeat in 2 hrs if headache persists; MDD 2 tablets completed sumatriptan 25 MG Oral Tablet [facility] ([facility]) albuterol sulfate HFA 90 mcg/actuation a erosol inhaler INHALE 2 PUFFS BY MOUTH EVERY 4 HOURS NEEDED [id number] completed [id number] 200 ACTUAT albuterol 0.09 MG/ACTUAT Metered Dose Inhaler [place] ([facility]) fluticasone propionate 50 mcg/actuation nasal spray,suspension [place] 1 spray every day by intranasal route as needed. [id number] 1 spray(s) completed fluticasone propionate 0.05 MG/ACTUAT Me tered Dose Nasal [place] [facility] ([facility]) Trazodone Hydrochloride 50 MG Oral Table t trazodone 50 mg tablet TAKE 1 TABLET BY MOUTH ONCE DAILY AT BEDTIME trazodone 50 mg tablet TAKE 1 TABLET BY MOUTH ONCE DAILY AT BEDTIME completed trazodone hydrochloride 50 MG Oral Tablet [place] ([facility]) Trazodone Hydrochloride 50 MG Oral Table t trazodone 50 mg tablet TAKE 1 TABLET BY MOUTH ONCE DAILY AT BEDTIME trazodone 50 mg tablet TAKE 1 TABLET BY MOUTH ONCE DAILY AT BEDTIME completed trazodone hydrochloride 50 MG Oral Tablet [facility] ([facility]) Hydroxyzine Hydrochloride 25 MG Oral Tab let hydroxyzine HCl 25 mg tablet TAKE 1 TO 2 TABLETS BY MOUTH ONCE DAILY NEEDED hydroxyzine HCl 25 mg tablet TAKE 1 TO 2 TABLETS BY MOUTH ONCE DAILY NEEDED completed hydroxyzine hydrochloride 25 MG Oral Tablet [facility] ([facility]) Trazodone Hydrochloride 50 MG Oral Table t trazodone 50 mg tablet TAKE 1 TABLET BY MOUTH ONCE DAILY AT BEDTIME trazodone 50 mg tablet TAKE 1 TABLET BY MOUTH ONCE DAILY AT BEDTIME completed trazodone hydrochloride 50 MG Oral Tablet [facility] ([facility]) cetirizine hydrochloride 10 MG Oral Tabl et cetirizine 10 mg tablet TAKE 1 TABLET BY MOUTH ONCE DAILY cetirizine 10 mg tablet TAKE 1 TABLET BY MOUTH ONCE DA ANTHONY completed cetirizine hyd rochloride 10 MG Oral Tablet [facility] ([facility]) Trazodone Hydrochloride 50 MG Oral Table t trazodone 50 mg tablet TAKE 1 TABLET BY MOUTH ONCE DAILY AT BEDTIME trazodone 50 mg tablet TAKE 1 TABLET BY MOUTH ONCE DAILY AT BEDTIME completed trazodone hydrochloride 50 MG Oral Tablet [facility] ([facility]) Escitalopram 10 MG Oral Tablet escitalop yuko 10 mg tablet TAKE 1 TABLET BY MOUTH ONCE DAILY escitalopram 10 mg tablet TAKE 1 TABLET BY MOUTH ONCE DAILY completed escitalopram 10 MG Oral T ablet [facility] ([facility]) cetirizine hydrochloride 10 MG Oral Tabl et cetirizine 10 mg tablet TAKE 1 TABLET BY MOUTH ONCE DAILY cetirizine 10 mg tablet TAKE 1 TABLET BY MOUTH ONCE DA ANTHONY completed cetirizine hyd rochloride 10 MG Oral Tablet [facility] ([facility]) Trazodone Hydrochloride 50 MG Oral Table t trazodone 50 mg tablet TAKE 1 TABLET BY MOUTH ONCE DAILY AT BEDTIME trazodone 50 mg tablet TAKE 1 TABLET BY MOUTH ONCE DAILY AT BEDTIME completed trazodone hydrochloride 50 MG Oral Tablet [facility] ([facility]) Trazodone Hydrochloride 50 MG Oral Table t trazodone 50 mg tablet TAKE 1 TABLET BY MOUTH ONCE DAILY AT BEDTIME trazodone 50 mg tablet TAKE 1 TABLET BY MOUTH ONCE DAILY AT BEDTIME completed trazodone hydrochloride 50 MG Oral Tablet [facility] ([facility]) Lorazepam 1 MG Oral Tablet lorazepam 1 m g tablet TAKE 1 TABLET BY MOUTH ONCE DAILY NEEDED . DO NOT EXCEED 1 PER 24 HOURS lorazepam 1 mg tablet TAKE 1 TABLET BY MOUTH ONCE DAILY NEEDED . DO NOT EXCEED 1 PER 24 HOURS completed lorazepam 1 MG Oral Tablet ATHEN A ([facility]) Escitalopram 10 MG Oral Tablet escitalop yuko 10 mg tablet TAKE 1 TABLET BY MOUTH ONCE DAILY escitalopram 10 mg tablet TAKE 1 TABLET BY MOUTH ONCE DAILY completed escitalopram 10 MG Oral T ablet [facility] ([facility]) Hydroxyzine Hydrochloride 10 MG Oral Tab let hydroxyzine HCl 10 mg tablet TAKE 1 TO 2 TABLETS BY MOUTH EVERY 6 HOURS NEEDED hydroxyzine HCl 10 mg tablet TAKE 1 TO 2 TABLETS BY MOUTH EVERY 6 HOURS NEEDED completed hydroxyzine hydrochloride 10 MG Oral Tablet [place] ([facility]) Trazodone Hydrochloride 50 MG Oral Table t trazodone 50 mg tablet TAKE 1 TABLET BY MOUTH ONCE DAILY AT BEDTIME trazodone 50 mg tablet TAKE 1 TABLET BY MOUTH ONCE DAILY AT BEDTIME completed trazodone hydrochloride 50 MG Oral Tablet [facility] ([facility]) cetirizine hydrochloride 10 MG Oral Tabl et cetirizine 10 mg tablet TAKE 1 TABLET BY MOUTH ONCE DAILY cetirizine 10 mg tablet TAKE 1 TABLET BY MOUTH ONCE DA ANTHONY completed cetirizine hyd rochloride 10 MG Oral Tablet [facility] ([facility]) Hydroxyzine Hydrochloride 10 MG Oral Tab let hydroxyzine HCl 10 mg tablet TAKE 1 TO 2 TABLETS BY MOUTH EVERY 6 HOURS NEEDED hydroxyzine HCl 10 mg tablet TAKE 1 TO 2 TABLETS BY MOUTH EVERY 6 HOURS NEEDED completed hydroxyzine hydrochloride 10 MG Oral Tablet [facility] ([facility]) Hydroxyzine Hydrochloride 10 MG Oral Tab let hydroxyzine HCl 10 mg tablet TAKE 1 TO 2 TABLETS BY MOUTH EVERY 6 HOURS NEEDED hydroxyzine HCl 10 mg tablet TAKE 1 TO 2 TABLETS BY MOUTH EVERY 6 HOURS NEEDED completed hydroxyzine hydrochloride 10 MG Oral Tablet [facility] ([facility]) Omeprazole 20 MG Delayed Release Oral Ca psule omeprazole 20 mg capsule,delayed release TAKE 1 CAPSULE BY MOUTH IN THE MORNING ON AN EMPTY STOMACH omeprazole 20 mg capsule,delayed release TAKE 1 CAPSULE BY MOUTH IN THE MORNING ON AN EMPTY STOMACH completed omeprazole 20 MG Delayed Release Oral Capsule [facility] ([facility]) Escitalopram 10 MG Oral Tablet escitalop yuko 10 mg tablet TAKE 1 TABLET BY MOUTH ONCE DAILY escitalopram 10 mg tablet TAKE 1 TABLET BY MOUTH ONCE DAILY completed escitalopram 10 MG Oral T ablet [facility] ([facility]) Escitalopram 10 MG Oral Tablet escitalop yuko 10 mg tablet TAKE 1 TABLET BY MOUTH ONCE DAILY escitalopram 10 mg tablet TAKE 1 TABLET BY MOUTH ONCE DAILY completed escitalopram 10 MG Oral T ablet [facility] ([facility]) Trazodone Hydrochloride 50 MG Oral Table t trazodone 50 mg tablet TAKE 1 TABLET BY MOUTH ONCE DAILY AT BEDTIME trazodone 50 mg tablet TAKE 1 TABLET BY MOUTH ONCE DAILY AT BEDTIME completed trazodone hydrochloride 50 MG Oral Tablet [facility] ([facility]) cetirizine hydrochloride 10 MG Oral Tabl et cetirizine 10 mg tablet TAKE 1 TABLET BY MOUTH ONCE DAILY cetirizine 10 mg tablet TAKE 1 TABLET BY MOUTH ONCE DA ANTHONY completed cetirizine hyd rochloride 10 MG Oral Tablet [facility] ([facility]) cetirizine hydrochloride 10 MG Oral Tabl et cetirizine 10 mg tablet TAKE 1 TABLET BY MOUTH ONCE DAILY cetirizine 10 mg tablet TAKE 1 TABLET BY MOUTH ONCE DA ANTHONY completed cetirizine hyd rochloride 10 MG Oral Tablet [facility] ([facility]) Trazodone Hydrochloride 50 MG Oral Table t trazodone 50 mg tablet TAKE 1 TABLET BY MOUTH ONCE DAILY AT BEDTIME trazodone 50 mg tablet TAKE 1 TABLET BY MOUTH ONCE DAILY AT BEDTIME completed trazodone hydrochloride 50 MG Oral Tablet [facility] ([facility]) Trazodone Hydrochloride 50 MG Oral Table t trazodone 50 mg tablet TAKE 1 TABLET BY MOUTH ONCE DAILY AT BEDTIME trazodone 50 mg tablet TAKE 1 TABLET BY MOUTH ONCE DAILY AT BEDTIME completed trazodone hydrochloride 50 MG Oral Tablet [facility] ([facility]) Trazodone Hydrochloride 50 MG Oral Table t trazodone 50 mg tablet TAKE 1 TABLET BY MOUTH ONCE DAILY AT BEDTIME trazodone 50 mg tablet TAKE 1 TABLET BY MOUTH ONCE DAILY AT BEDTIME completed trazodone hydrochloride 50 MG Oral Tablet [facility] ([facility]) cetirizine hydrochloride 10 MG Oral Tabl et cetirizine 10 mg tablet TAKE 1 TABLET BY MOUTH ONCE DAILY cetirizine 10 mg tablet TAKE 1 TABLET BY MOUTH ONCE DA ANTHONY completed cetirizine hyd rochloride 10 MG Oral Tablet [facility] ([facility]) cetirizine hydrochloride 10 MG Oral Tabl et cetirizine 10 mg tablet TAKE 1 TABLET BY MOUTH ONCE DAILY cetirizine 10 mg tablet TAKE 1 TABLET BY MOUTH ONCE DA ANTHONY completed cetirizine hyd rochloride 10 MG Oral Tablet [facility] ([facility]) Trazodone Hydrochloride 50 MG Oral Table t trazodone 50 mg tablet TAKE 1 TABLET BY MOUTH ONCE DAILY AT BEDTIME trazodone 50 mg tablet TAKE 1 TABLET BY MOUTH ONCE DAILY AT BEDTIME completed trazodone hydrochloride 50 MG Oral Tablet [place] ([facility]) Omeprazole 20 MG Delayed Release Oral Ca psule omeprazole 20 mg capsule,delayed release TAKE 1 CAPSULE BY MOUTH IN THE MORNING ON AN EMPTY STOMACH omeprazole 20 mg capsule,delayed release TAKE 1 CAPSULE BY MOUTH IN THE MORNING ON AN EMPTY STOMACH completed omeprazole 20 MG Delayed Release Oral Capsule [facility] ([facility]) Trazodone Hydrochloride 50 MG Oral Table t trazodone 50 mg tablet TAKE 1 TABLET BY MOUTH ONCE DAILY AT BEDTIME trazodone 50 mg tablet TAKE 1 TABLET BY MOUTH ONCE DAILY AT BEDTIME completed trazodone hydrochloride 50 MG Oral Tablet [facility] ([facility]) Hydroxyzine Hydrochloride 10 MG Oral Tab let hydroxyzine HCl 10 mg tablet TAKE 1 TO 2 TABLETS BY MOUTH EVERY 6 HOURS NEEDED hydroxyzine HCl 10 mg tablet TAKE 1 TO 2 TABLETS BY MOUTH EVERY 6 HOURS NEEDED completed hydroxyzine hydrochloride 10 MG Oral Tablet [facility] ([facility]) cetirizine hydrochloride 10 MG Oral Tabl et cetirizine 10 mg tablet TAKE 1 TABLET BY MOUTH ONCE DAILY cetirizine 10 mg tablet TAKE 1 TABLET BY MOUTH ONCE DA ANTHOYN completed cetirizine hyd rochloride 10 MG Oral Tablet [facility] ([facility]) Trazodone Hydrochloride 50 MG Oral Table t trazodone 50 mg tablet TAKE 1 TABLET BY MOUTH ONCE DAILY AT BEDTIME trazodone 50 mg tablet TAKE 1 TABLET BY MOUTH ONCE DAILY AT BEDTIME completed trazodone hydrochloride 50 MG Oral Tablet [facility] ([facility]) Escitalopram 10 MG Oral Tablet escitalop yuko 10 mg tablet TAKE 1 TABLET BY MOUTH ONCE DAILY escitalopram 10 mg tablet TAKE 1 TABLET BY MOUTH ONCE DAILY completed escitalopram 10 MG Oral T ablet [facility] ([facility]) Trazodone Hydrochloride 50 MG Oral Table t trazodone 50 mg tablet TAKE 1 TABLET BY MOUTH ONCE DAILY AT BEDTIME trazodone 50 mg tablet TAKE 1 TABLET BY MOUTH ONCE DAILY AT BEDTIME completed trazodone hydrochloride 50 MG Oral Tablet [facility] ([facility]) Trazodone Hydrochloride 50 MG Oral Table t trazodone 50 mg tablet TAKE 1 TABLET BY MOUTH ONCE DAILY AT BEDTIME trazodone 50 mg tablet TAKE 1 TABLET BY MOUTH ONCE DAILY AT BEDTIME completed trazodone hydrochloride 50 MG Oral Tablet [place] ([facility]) Sumatriptan 25 MG Oral Tablet sumatripta n 25 mg tablet Take 1 tablet po at onset of migraine, repeat in 2 hrs if headache persists; MDD 2 tablets sumatriptan 25 mg tablet Take 1 tablet po at onset of migraine, repeat in 2 hrs if headache persists; MDD 2 tablets completed sumatriptan 25 MG Oral Tablet [place] ([facility]) Hydroxyzine Hydrochloride 25 MG Oral Tab let hydroxyzine HCl 25 mg tablet TAKE 1 TO 2 TABLETS BY MOUTH ONCE DAILY NEEDED hydroxyzine HCl 25 mg tablet TAKE 1 TO 2 TABLETS BY MOUTH ONCE DAILY NEEDED completed hydroxyzine hydrochloride 25 MG Oral Tablet [facility] ([facility]) Hydroxyzine Hydrochloride 10 MG Oral Tab let hydroxyzine HCl 10 mg tablet TAKE 1 TO 2 TABLETS BY MOUTH EVERY 6 HOURS NEEDED hydroxyzine HCl 10 mg tablet TAKE 1 TO 2 TABLETS BY MOUTH EVERY 6 HOURS NEEDED completed hydroxyzine hydrochloride 10 MG Oral Tablet [facility] ([facility]) Escitalopram 10 MG Oral Tablet escitalop yuko 10 mg tablet TAKE 1 TABLET BY MOUTH ONCE DAILY escitalopram 10 mg tablet TAKE 1 TABLET BY MOUTH ONCE DAILY completed escitalopram 10 MG Oral T ablet [facility] ([facility]) Trazodone Hydrochloride 50 MG Oral Table t trazodone 50 mg tablet TAKE 1 TABLET BY MOUTH ONCE DAILY AT BEDTIME trazodone 50 mg tablet TAKE 1 TABLET BY MOUTH ONCE DAILY AT BEDTIME completed trazodone hydrochloride 50 MG Oral Tablet [facility] ([facility]) Escitalopram 10 MG Oral Tablet escitalop yuko 10 mg tablet TAKE 1 TABLET BY MOUTH ONCE DAILY escitalopram 10 mg tablet TAKE 1 TABLET BY MOUTH ONCE DAILY completed escitalopram 10 MG Oral T ablet [facility] ([facility]) Trazodone Hydrochloride 50 MG Oral Table t trazodone 50 mg tablet TAKE 1 TABLET BY MOUTH ONCE DAILY AT BEDTIME trazodone 50 mg tablet TAKE 1 TABLET BY MOUTH ONCE DAILY AT BEDTIME completed trazodone hydrochloride 50 MG Oral Tablet [facility] ([facility]) Trazodone Hydrochloride 50 MG Oral Table t trazodone 50 mg tablet TAKE 1 TABLET BY MOUTH ONCE DAILY AT BEDTIME trazodone 50 mg tablet TAKE 1 TABLET BY MOUTH ONCE DAILY AT BEDTIME completed trazodone hydrochloride 50 MG Oral Tablet [facility] ([facility]) cetirizine hydrochloride 10 MG Oral Tabl et cetirizine 10 mg tablet TAKE 1 TABLET BY MOUTH ONCE DAILY cetirizine 10 mg tablet TAKE 1 TABLET BY MOUTH ONCE DA ANTHONY completed cetirizine hyd rochloride 10 MG Oral Tablet [place] ([facility]) Insurance Providers Payer name Policy type / Coverage type Policy ID Covered democrat ID Covered democrat's relationship to mahajan Policy Mahajan Plan Information [employer] [id number] SP [id number] SELF PAY ONLY [id number] SP [id number] Sliding Fee Scale P None S No ne [facility] [id number] SP [id number] MEDICAID [id number] MEDICAID [id number] SP [id number] [facility] [id number] SP [id number] [facility] [employer] COMP [id number] SP [id number] SELF PAY ONLY [id number] SP SP1 O UNAVAILABLE UNAVAILA BLE SELF PAY UNAVAILABLE SP UNAVAILA BLE [employer] BCBS B [id number] S TAE [id number] [place] P[place] 302/307 [id number] SP [id number] [employer] [place] 306/806 [id number] SP [id number] Self Pay S UNAVAILABLE S UNAVAILA BLE [facility]NA [facility] [id number] BS PLAN [id number] SP [id number] Problems, Conditions, and Diagnoses Code Display Name Description Problem Type Effective Dates Data Source(s) [id number] COVID-19 Covid-19 Problem 11/19/2020 12:00:00 AM ED T [facility] ([facility]) [id number] COVID-19 Covid-19 Problem 11/19/2020 12:00:00 AM ED T [facility] ([facility]) [id number] Migraine Migraine Problem 05/20/2020 12:00:00 AM ED T MEDJUAN RAMON ([facility]) [id number] Headache Headache Problem 05/20/2020 12:00:00 AM ED T MEDENT ([facility]) [id number] Numbness Numbness Problem 05/20/2020 12:00:00 AM ED T MEDENT ([facility]) [id number] Elevated blood-pressure reading without diagnosis of hypertension Elevated Blood-pressure Reading without Diagnosis of Hypertension Problem 02/02/2020 12:00:00 AM EST HILDA ([facility]) [id number] Elevated blood-pressure reading without diagnosis of hypertension Elevated Blood-pressure Reading without Diagnosis of Hypertension Problem 02/02/2020 12:00:00 AM EST [facility]DA ([facility]) [id number] Elevated blood-pressure reading without diagnosis of hypertension Elevated Blood-pressure Reading without Diagnosis of Hypertension Problem 02/02/2020 12:00:00 AM EST [facility]DA ([facility]) [id number] Elevated blood-pressure reading without diagnosis of hypertension Elevated Blood-pressure Reading without Diagnosis of Hypertension Problem 02/02/2020 12:00:00 AM EST [facility]DA ([facility]) [id number] Elevated blood-pressure reading without diagnosis of hypertension Elevated Blood-pressure Reading without Diagnosis of Hypertension Problem 02/02/2020 12:00:00 AM EST [facility]DA ([facility]) [id number] Elevated blood-pressure reading without diagnosis of hypertension Elevated Blood-pressure Reading without Diagnosis of Hypertension Problem 02/02/2020 12:00:00 AM EST [facility]DA ([facility]) [id number] Elevated blood-pressure reading without diagnosis of hypertension Elevated Blood-pressure Reading without Diagnosis of Hypertension Problem 02/02/2020 12:00:00 AM EST [facility]DA ([facility]) [id number] Elevated blood-pressure reading without diagnosis of hypertension Elevated Blood-pressure Reading without Diagnosis of Hypertension Problem 02/02/2020 12:00:00 AM EST [facility]ILDA ([facility]) [id number] Elevated blood-pressure reading without diagnosis of hypertension Elevated Blood-pressure Reading without Diagnosis of Hypertension Problem 02/02/2020 12:00:00 AM EST [facility]DA ([facility]) [id number] Elevated blood-pressure reading without diagnosis of hypertension Elevated Blood-pressure Reading without Diagnosis of Hypertension Problem 02/02/2020 12:00:00 AM EST [facility]DA ([facility]) [id number] Elevated blood-pressure reading without diagnosis of hypertension Elevated Blood-pressure Reading without Diagnosis of Hypertension Problem 02/02/2020 12:00:00 AM EST [facility]ILDA ([facility]) [id number] Elevated blood-pressure reading without diagnosis of hypertension Elevated Blood-pressure Reading without Diagnosis of Hypertension Problem 02/02/2020 12:00:00 AM EST [facility]DA ([facility]) [id number] Elevated blood-pressure reading without diagnosis of hypertension Elevated Blood-pressure Reading without Diagnosis of Hypertension Problem 02/02/2020 12:00:00 AM EST [facility]ILDA ([facility]) [id number] Elevated blood-pressure reading without diagnosis of hypertension Elevated Blood-pressure Reading without Diagnosis of Hypertension Problem 02/02/2020 12:00:00 AM EST [facility] ([facility]) [id number] Elevated blood-pressure reading without diagnosis of hypertension Elevated Blood-pressure Reading without Diagnosis of Hypertension Problem 02/02/2020 12:00:00 AM EST [facility] ([facility]) [id number] Elevated blood-pressure reading without diagnosis of hypertension Elevated Blood-pressure Reading without Diagnosis of Hypertension Problem 02/02/2020 12:00:00 AM EST [facility] ([facility]) [id number] Elevated blood-pressure reading without diagnosis of hypertension Elevated Blood-pressure Reading without Diagnosis of Hypertension Problem 02/02/2020 12:00:00 AM EST [facility] ([facility]) [id number] Elevated blood-pressure reading without diagnosis of hypertension Elevated Blood-pressure Reading without Diagnosis of Hypertension Problem 02/02/2020 12:00:00 AM EST [facility] ([facility]) [id number] Elevated blood-pressure reading without diagnosis of hypertension Elevated Blood-pressure Reading without Diagnosis of Hypertension Problem 02/02/2020 12:00:00 AM EST [facility] ([facility]) [id number] Elevated blood-pressure reading without diagnosis of hypertension Elevated Blood-pressure Reading without Diagnosis of Hypertension Problem 02/02/2020 12:00:00 AM EST [facility] ([facility]) [id number] Elevated blood-pressure reading without diagnosis of hypertension Elevated Blood-pressure Reading without Diagnosis of Hypertension Problem 02/02/2020 12:00:00 AM EST [facility] ([facility]) [id number] Elevated blood-pressure reading without diagnosis of hypertension Elevated Blood-pressure Reading without Diagnosis of Hypertension Problem 02/02/2020 12:00:00 AM EST [facility] ([facility]) [id number] Elevated blood-pressure reading without diagnosis of hypertension Elevated Blood-pressure Reading without Diagnosis of Hypertension Problem 02/02/2020 12:00:00 AM EST [facility] ([facility]) [id number] Elevated blood-pressure reading without diagnosis of hypertension Elevated Blood-pressure Reading without Diagnosis of Hypertension Problem 02/02/2020 12:00:00 AM EST [facility] ([facility]) [id number] Elevated blood-pressure reading without diagnosis of hypertension Elevated Blood-pressure Reading without Diagnosis of Hypertension Problem 02/02/2020 12:00:00 AM EST [facility] ([facility]) [id number] Elevated blood-pressure reading without diagnosis of hypertension Elevated Blood-pressure Reading without Diagnosis of Hypertension Problem 02/02/2020 12:00:00 AM EST [facility] ([facility]) [id number] Elevated blood-pressure reading without diagnosis of hypertension Elevated Blood-pressure Reading without Diagnosis of Hypertension Problem 02/02/2020 12:00:00 AM EST [facility] ([facility]) [id number] Electrocardiogram abnormal Electrocardiogram Abnormal Problem 01/07/2020 12:00:00 AM EST [facility] ([facility]) [id number] Precordial pain Precordial Pain Problem 01/07/2020 12:0 0:00 AM EST [facility] ([facility]) [id number] Palpitations Palpitations Problem 01/07/2020 12:00:00 A M EST [facility] ([facility]) [id number] Gastroesophageal reflux disease Gastroesophageal Reflux Disease Problem 01/07/2020 12:00:00 AM EST [facility] ([facility]) [id number] Body mass index 30+ - obesity Body Mass Index 30+ - Ob esity Problem 01/07/2020 12:00:00 AM EST [facility] ([facility]) [id number] Electrocardiogram abnormal Electrocardiogram Abnormal Problem 01/07/2020 12:00:00 AM EST [facility] ([facility]) [id number] Precordial pain Precordial Pain Problem 01/07/2020 12:0 0:00 AM EST [facility] ([facility]) [id number] Palpitations Palpitations Problem 01/07/2020 12:00:00 A M EST [facility] ([facility]) [id number] Gastroesophageal reflux disease Gastroesophageal Reflux Disease Problem 01/07/2020 12:00:00 AM EST [facility] ([facility]) [id number] Body mass index 30+ - obesity Body Mass Index 30+ - Ob esity Problem 01/07/2020 12:00:00 AM EST [facility] ([facility]) K21.9 Gastroesophageal reflux disease Gastroesophageal reflu x disease Problem 01/07/2020 12:00:00 AM EST [facility] ([facility]) R00.2 Palpitations Palpitations Problem 01/07/2020 12:00:00 A M EST [facility] ([facility]) Z68.30 Body mass index 30+ - obesity Body mass index 30+ - ob esity Problem 01/07/2020 12:00:00 AM EST [facility] ([facility]) R94.31 Electrocardiogram abnormal Electrocardiogram abnormal Problem 01/07/2020 12:00:00 AM EST [facility] ([facility]) R07.2 Precordial pain Precordial pain Problem 01/07/2020 12:0 0:00 AM EST [facility] ([facility]) [id number] Panic disorder without agoraphobia Panic Disorde r without Agoraphobia Problem 12/29/2019 12:00:00 AM EST [facility] ([facility]) [id number] Panic disorder without agoraphobia Panic Disorde r without Agoraphobia Problem 12/29/2019 12:00:00 AM EST [facility] ([facility]) [id number] Panic disorder without agoraphobia Panic Disorde r without Agoraphobia Problem 12/29/2019 12:00:00 AM EST [facility] ([facility]) [id number] Panic disorder without agoraphobia Panic Disorde r without Agoraphobia Problem 12/29/2019 12:00:00 AM EST [facility] ([facility]) [id number] Panic disorder without agoraphobia Panic Disorde r without Agoraphobia Problem 12/29/2019 12:00:00 AM EST [facility] ([facility]) [id number] Panic disorder without agoraphobia Panic Disorde r without Agoraphobia Problem 12/29/2019 12:00:00 AM EST [facility] ([facility]) [id number] Panic disorder without agoraphobia Panic Disorde r without Agoraphobia Problem 12/29/2019 12:00:00 AM EST [facility] ([facility]) [id number] Panic disorder without agoraphobia Panic Disorde r without Agoraphobia Problem 12/29/2019 12:00:00 AM EST [facility] ([facility]) [id number] Panic disorder without agoraphobia Panic Disorde r without Agoraphobia Problem 12/29/2019 12:00:00 AM EST [facility] ([facility]) [id number] Panic disorder without agoraphobia Panic Disorde r without Agoraphobia Problem 12/29/2019 12:00:00 AM EST [facility] ([facility]) [id number] Panic disorder without agoraphobia Panic Disorde r without Agoraphobia Problem 12/29/2019 12:00:00 AM EST [facility] ([facility]) [id number] Panic disorder without agoraphobia Panic Disorde r without Agoraphobia Problem 12/29/2019 12:00:00 AM EST [facility] ([facility]) [id number] Panic disorder without agoraphobia Panic Disorde r without Agoraphobia Problem 12/29/2019 12:00:00 AM EST [facility] ([facility]) [id number] Panic disorder without agoraphobia Panic Disorde r without Agoraphobia Problem 12/29/2019 12:00:00 AM EST [facility] ([facility]) [id number] Panic disorder without agoraphobia Panic Disorde r without Agoraphobia Problem 12/29/2019 12:00:00 AM EST [facility] ([facility]) [id number] Panic disorder without agoraphobia Panic Disorde r without Agoraphobia Problem 12/29/2019 12:00:00 AM EST [facility] ([facility]) [id number] Panic disorder without agoraphobia Panic Disorde r without Agoraphobia Problem 12/29/2019 12:00:00 AM EST [facility] ([facility]) [id number] Panic disorder without agoraphobia Panic Disorde r without Agoraphobia Problem 12/29/2019 12:00:00 AM EST [facility] ([facility]) [id number] Panic disorder without agoraphobia Panic Disorde r without Agoraphobia Problem 12/29/2019 12:00:00 AM EST [facility] ([facility]) [id number] Panic disorder without agoraphobia Panic Disorde r without Agoraphobia Problem 12/29/2019 12:00:00 AM EST [facility] ([facility]) [id number] Panic disorder without agoraphobia Panic Disorde r without Agoraphobia Problem 12/29/2019 12:00:00 AM EST [facility] ([facility]) [id number] Panic disorder without agoraphobia Panic Disorde r without Agoraphobia Problem 12/29/2019 12:00:00 AM EST [facility] ([facility]) [id number] Panic disorder without agoraphobia Panic Disorde r without Agoraphobia Problem 12/29/2019 12:00:00 AM EST [facility] ([facility]) [id number] Panic disorder without agoraphobia Panic Disorde r without Agoraphobia Problem 12/29/2019 12:00:00 AM EST [facility] ([facility]) [id number] Panic disorder without agoraphobia Panic Disorde r without Agoraphobia Problem 12/29/2019 12:00:00 AM EST [facility] ([facility]) [id number] Panic disorder without agoraphobia Panic Disorde r without Agoraphobia Problem 12/29/2019 12:00:00 AM EST [facility] ([facility]) [id number] Panic disorder without agoraphobia Panic Disorde r without Agoraphobia Problem 12/29/2019 12:00:00 AM EST [facility] ([facility]) [id number] Panic disorder without agoraphobia Panic Disorde r without Agoraphobia Problem 12/29/2019 12:00:00 AM EST [facility] ([facility]) [id number] Panic disorder without agoraphobia Panic Disorde r without Agoraphobia Problem 12/29/2019 12:00:00 AM EST [facility] ([facility]) [id number] Panic disorder without agoraphobia Panic Disorde r without Agoraphobia Problem 12/29/2019 12:00:00 AM EST [facility] ([facility]) [id number] Panic disorder without agoraphobia Panic Disorde r without Agoraphobia Problem 12/29/2019 12:00:00 AM EST [facility] ([facility]) [id number] Panic disorder without agoraphobia Panic Disorde r without Agoraphobia Problem 12/29/2019 12:00:00 AM EST [facility] ([facility]) [id number] Panic disorder without agoraphobia Panic Disorde r without Agoraphobia Problem 12/29/2019 12:00:00 AM EST [facility] ([facility]) [id number] Panic disorder without agoraphobia Panic Disorde r without Agoraphobia Problem 12/29/2019 12:00:00 AM EST [facility] ([facility]) [id number] Psychophysiologic insomnia Psychophysiologic Insomnia Problem 12/11/2019 12:00:00 AM EST [facility] ([facility]) [id number] Psychophysiologic insomnia Psychophysiologic Insomnia Problem 12/11/2019 12:00:00 AM EST [facility] ([facility]) [id number] Psychophysiologic insomnia Psychophysiologic Insomnia Problem 12/11/2019 12:00:00 AM EST [facility] ([facility]) [id number] Psychophysiologic insomnia Psychophysiologic Insomnia Problem 12/11/2019 12:00:00 AM EST [facility] ([facility]) [id number] Psychophysiologic insomnia Psychophysiologic Insomnia Problem 12/11/2019 12:00:00 AM EST [facility] ([facility]) [id number] Psychophysiologic insomnia Psychophysiologic Insomnia Problem 12/11/2019 12:00:00 AM EST [facility] ([facility]) [id number] Psychophysiologic insomnia Psychophysiologic Insomnia Problem 12/11/2019 12:00:00 AM EST [facility] ([facility]) [id number] Psychophysiologic insomnia Psychophysiologic Insomnia Problem 12/11/2019 12:00:00 AM EST [facility] ([facility]) [id number] Psychophysiologic insomnia Psychophysiologic Insomnia Problem 12/11/2019 12:00:00 AM EST [facility] ([facility]) [id number] Psychophysiologic insomnia Psychophysiologic Insomnia Problem 12/11/2019 12:00:00 AM EST [facility] ([facility]) [id number] Psychophysiologic insomnia Psychophysiologic Insomnia Problem 12/11/2019 12:00:00 AM EST [facility] ([facility]) [id number] Psychophysiologic insomnia Psychophysiologic Insomnia Problem 12/11/2019 12:00:00 AM EST [facility] ([facility]) [id number] Psychophysiologic insomnia Psychophysiologic Insomnia Problem 12/11/2019 12:00:00 AM EST [facility] ([facility]) [id number] Psychophysiologic insomnia Psychophysiologic Insomnia Problem 12/11/2019 12:00:00 AM EST [facility] ([facility]) [id number] Psychophysiologic insomnia Psychophysiologic Insomnia Problem 12/11/2019 12:00:00 AM EST [facility] ([facility]) [id number] Psychophysiologic insomnia Psychophysiologic Insomnia Problem 12/11/2019 12:00:00 AM EST [facility] ([facility]) [id number] Psychophysiologic insomnia Psychophysiologic Insomnia Problem 12/11/2019 12:00:00 AM EST [facility] ([facility]) [id number] Psychophysiologic insomnia Psychophysiologic Insomnia Problem 12/11/2019 12:00:00 AM EST [facility] ([facility]) [id number] Psychophysiologic insomnia Psychophysiologic Insomnia Problem 12/11/2019 12:00:00 AM EST [facility] ([facility]) [id number] Psychophysiologic insomnia Psychophysiologic Insomnia Problem 12/11/2019 12:00:00 AM EST [facility] ([facility]) [id number] Psychophysiologic insomnia Psychophysiologic Insomnia Problem 12/11/2019 12:00:00 AM EST [facility] ([facility]) [id number] Psychophysiologic insomnia Psychophysiologic Insomnia Problem 12/11/2019 12:00:00 AM EST [facility] ([facility]) [id number] Psychophysiologic insomnia Psychophysiologic Insomnia Problem 12/11/2019 12:00:00 AM EST [facility] ([facility]) [id number] Psychophysiologic insomnia Psychophysiologic Insomnia Problem 12/11/2019 12:00:00 AM EST [facility] ([facility]) [id number] Psychophysiologic insomnia Psychophysiologic Insomnia Problem 12/11/2019 12:00:00 AM EST [facility] ([facility]) [id number] Psychophysiologic insomnia Psychophysiologic Insomnia Problem 12/11/2019 12:00:00 AM EST [facility] ([facility]) [id number] Psychophysiologic insomnia Psychophysiologic Insomnia Problem 12/11/2019 12:00:00 AM EST [facility] ([facility]) [id number] Psychophysiologic insomnia Psychophysiologic Insomnia Problem 12/11/2019 12:00:00 AM EST [facility] ([facility]) [id number] Psychophysiologic insomnia Psychophysiologic Insomnia Problem 12/11/2019 12:00:00 AM EST [facility] ([facility]) [id number] Psychophysiologic insomnia Psychophysiologic Insomnia Problem 12/11/2019 12:00:00 AM EST [facility] ([facility]) [id number] Psychophysiologic insomnia Psychophysiologic Insomnia Problem 12/11/2019 12:00:00 AM EST [facility] ([facility]) [id number] Psychophysiologic insomnia Psychophysiologic Insomnia Problem 12/11/2019 12:00:00 AM EST [facility] ([facility]) [id number] Psychophysiologic insomnia Psychophysiologic Insomnia Problem 12/11/2019 12:00:00 AM EST [facility] ([facility]) [id number] Psychophysiologic insomnia Psychophysiologic Insomnia Problem 12/11/2019 12:00:00 AM EST [facility] ([facility]) [id number] Psychophysiologic insomnia Psychophysiologic Insomnia Problem 12/11/2019 12:00:00 AM EST [facility] ([facility]) [id number] Psychophysiologic insomnia Psychophysiologic Insomnia Problem 12/11/2019 12:00:00 AM EST [facility] ([facility]) [id number] Psychophysiologic insomnia Psychophysiologic Insomnia Problem 12/11/2019 12:00:00 AM EST [facility] ([facility]) [id number] Psychophysiologic insomnia Psychophysiologic Insomnia Problem 12/11/2019 12:00:00 AM EST [facility] ([facility]) [id number] Generalized anxiety disorder Generalized Anxiety Disor sallie Problem 12/01/2019 12:00:00 AM EDT [facility] ([facility]) [id number] Generalized anxiety disorder Generalized Anxiety Disor sallie Problem 12/01/2019 12:00:00 AM EDT [facility] ([facility]) [id number] Generalized anxiety disorder Generalized Anxiety Disor sallie Problem 12/01/2019 12:00:00 AM EDT [facility] ([facility]) [id number] Generalized anxiety disorder Generalized Anxiety Disor sallie Problem 12/01/2019 12:00:00 AM EDT [facility] ([facility]) [id number] Generalized anxiety disorder Generalized Anxiety Disor sallie Problem 12/01/2019 12:00:00 AM EDT [facility] ([facility]) [id number] Generalized anxiety disorder Generalized Anxiety Disor sallie Problem 12/01/2019 12:00:00 AM EDT [facility] ([facility]) [id number] Generalized anxiety disorder Generalized Anxiety Disor sallie Problem 12/01/2019 12:00:00 AM EDT [facility] ([facility]) [id number] Generalized anxiety disorder Generalized Anxiety Disor sallie Problem 12/01/2019 12:00:00 AM EDT [facility] ([facility]) [id number] Generalized anxiety disorder Generalized Anxiety Disor sallie Problem 12/01/2019 12:00:00 AM EDT [facility] ([facility]) [id number] Generalized anxiety disorder Generalized Anxiety Disor sallie Problem 12/01/2019 12:00:00 AM EDT [facility] ([facility]) [id number] Generalized anxiety disorder Generalized Anxiety Disor sallie Problem 12/01/2019 12:00:00 AM EDT [facility] ([facility]) [id number] Generalized anxiety disorder Generalized Anxiety Disor sallie Problem 12/01/2019 12:00:00 AM EDT [facility] ([facility]) [id number] Generalized anxiety disorder Generalized Anxiety Disor sallie Problem 12/01/2019 12:00:00 AM EDT [facility] ([facility]) [id number] Generalized anxiety disorder Generalized Anxiety Disor sallie Problem 12/01/2019 12:00:00 AM EDT [facility] ([facility]) [id number] Generalized anxiety disorder Generalized Anxiety Disor sallie Problem 12/01/2019 12:00:00 AM EDT [facility] ([facility]) [id number] Generalized anxiety disorder Generalized Anxiety Disor sallie Problem 12/01/2019 12:00:00 AM EDT [facility] ([facility]) [id number] Generalized anxiety disorder Generalized Anxiety Disor sallie Problem 12/01/2019 12:00:00 AM EDT [facility] ([facility]) [id number] Generalized anxiety disorder Generalized Anxiety Disor sallie Problem 12/01/2019 12:00:00 AM EDT [facility] ([facility]) [id number] Generalized anxiety disorder Generalized Anxiety Disor sallie Problem 12/01/2019 12:00:00 AM EDT [facility] ([facility]) [id number] Generalized anxiety disorder Generalized Anxiety Disor sallie Problem 12/01/2019 12:00:00 AM EDT [facility] ([facility]) [id number] Generalized anxiety disorder Generalized Anxiety Disor sallie Problem 12/01/2019 12:00:00 AM EDT [facility] ([facility]) [id number] Generalized anxiety disorder Generalized Anxiety Disor sallie Problem 12/01/2019 12:00:00 AM EDT [facility] ([facility]) [id number] Generalized anxiety disorder Generalized Anxiety Disor sallie Problem 12/01/2019 12:00:00 AM EDT [facility] ([facility]) [id number] Generalized anxiety disorder Generalized Anxiety Disor sallie Problem 12/01/2019 12:00:00 AM EDT [facility] ([facility]) [id number] Generalized anxiety disorder Generalized Anxiety Disor sallie Problem 12/01/2019 12:00:00 AM EDT [facility] ([facility]) [id number] Generalized anxiety disorder Generalized Anxiety Disor sallie Problem 12/01/2019 12:00:00 AM EDT [facility] ([facility]) [id number] Generalized anxiety disorder Generalized Anxiety Disor sallie Problem 12/01/2019 12:00:00 AM EDT [facility] ([facility]) [id number] Generalized anxiety disorder Generalized Anxiety Disor sallie Problem 12/01/2019 12:00:00 AM EDT [facility] ([facility]) [id number] Generalized anxiety disorder Generalized Anxiety Disor sallie Problem 12/01/2019 12:00:00 AM EDT [facility] ([facility]) [id number] Generalized anxiety disorder Generalized Anxiety Disor sallie Problem 12/01/2019 12:00:00 AM EDT [facility] ([facility]) [id number] Generalized anxiety disorder Generalized Anxiety Disor sallie Problem 12/01/2019 12:00:00 AM EDT [facility] ([facility]) [id number] Generalized anxiety disorder Generalized Anxiety Disor sallie Problem 12/01/2019 12:00:00 AM EDT [facility] ([facility]) [id number] Generalized anxiety disorder Generalized Anxiety Disor sallie Problem 12/01/2019 12:00:00 AM EDT [facility] ([facility]) [id number] Generalized anxiety disorder Generalized Anxiety Disor sallie Problem 12/01/2019 12:00:00 AM EDT [facility] ([facility]) [id number] Generalized anxiety disorder Generalized Anxiety Disor sallie Problem 12/01/2019 12:00:00 AM EDT [facility] ([facility]) [id number] Generalized anxiety disorder Generalized Anxiety Disor sallie Problem 12/01/2019 12:00:00 AM EDT [facility] ([facility]) [id number] Generalized anxiety disorder Generalized Anxiety Disor sallie Problem 12/01/2019 12:00:00 AM EDT [facility] ([facility]) [id number] Generalized anxiety disorder Generalized Anxiety Disor sallie Problem 12/01/2019 12:00:00 AM EDT [facility] ([facility]) [id number] Generalized anxiety disorder Generalized Anxiety Disor sallie Problem 12/01/2019 12:00:00 AM EDT [facility] ([facility]) 18716003 Generalized anxiety disorder Generalized Anxiety Disor sallie Problem 12/01/2019 12:00:00 AM EDT [facility] ([facility]) 427.89 Bradycardia Bradycardia 10/28/2019 04:05:45 PM EDT [facility] [id number] Chest pain, unspecified Chest pain, unspecified 10/28/2019 04:05:45 PM EDT [facility] [id number] Chronic insomnia Chronic insomnia 10/28/2019 04 :05:45 PM EDT [facility] [id number] Cardiovascular measurement - finding Car diovascular Measurement - Finding Problem 10/28/2019 12:00:00 AM EDT [facility] ([facility]) 26509491 Chest pain Chest Pain Problem 10/28/2019 12:00:00 AM ED T [place] ([facility]) [id number] Cardiovascular measurement - finding Car diovascular Measurement - Finding Problem 10/28/2019 12:00:00 AM EDT [facility] ([facility]) 25071634 Chest pain Chest Pain Problem 10/28/2019 12:00:00 AM ED T [facility] ([facility]) 770047758 Cardiovascular measurement - finding Car diovascular Measurement - Finding Problem 10/28/2019 12:00:00 AM EDT [facility] ([facility]) [id number] Chest pain Chest Pain Problem 10/28/2019 12:00:00 AM ED T [facility] ([facility]) [id number] Cardiovascular measurement - finding Car diovascular Measurement - Finding Problem 10/28/2019 12:00:00 AM EDT [facility] ([facility]) [id number] Chest pain Chest Pain Problem 10/28/2019 12:00:00 AM ED T [facility] ([facility]) [id number] Cardiovascular measurement - finding Car diovascular Measurement - Finding Problem 10/28/2019 12:00:00 AM EDT [facility] ([facility]) [id number] Chest pain Chest Pain Problem 10/28/2019 12:00:00 AM ED T [facility] ([facility]) [id number] Cardiovascular measurement - finding Car diovascular Measurement - Finding Problem 10/28/2019 12:00:00 AM EDT [facility] ([facility]) [id number] Chest pain Chest Pain Problem 10/28/2019 12:00:00 AM ED T [facility] ([facility]) [id number] Cardiovascular measurement - finding Car diovascular Measurement - Finding Problem 10/28/2019 12:00:00 AM EDT [facility] ([facility]) [id number] Chest pain Chest Pain Problem 10/28/2019 12:00:00 AM ED T [facility] ([facility]) [id number] Cardiovascular measurement - finding Car diovascular Measurement - Finding Problem 10/28/2019 12:00:00 AM EDT [facility] ([facility]) [id number] Chest pain Chest Pain Problem 10/28/2019 12:00:00 AM ED T [facility] ([facility]) [id number] Cardiovascular measurement - finding Car diovascular Measurement - Finding Problem 10/28/2019 12:00:00 AM EDT [facility] ([facility]) [id number] Chest pain Chest Pain Problem 10/28/2019 12:00:00 AM ED T [facility] ([facility]) [id number] Cardiovascular measurement - finding Car diovascular Measurement - Finding Problem 10/28/2019 12:00:00 AM EDT [facility] ([facility]) [id number] Chest pain Chest Pain Problem 10/28/2019 12:00:00 AM ED T [facility] ([facility]) [id number] Cardiovascular measurement - finding Car diovascular Measurement - Finding Problem 10/28/2019 12:00:00 AM EDT [facility] ([facility]) [id number] Chest pain Chest Pain Problem 10/28/2019 12:00:00 AM ED T [facility] ([facility]) [id number] Cardiovascular measurement - finding Car diovascular Measurement - Finding Problem 10/28/2019 12:00:00 AM EDT [facility] ([facility]) [id number] Chest pain Chest Pain Problem 10/28/2019 12:00:00 AM ED T [facility] ([facility]) [id number] Cardiovascular measurement - finding Car diovascular Measurement - Finding Problem 10/28/2019 12:00:00 AM EDT [facility] ([facility]) [id number] Chest pain Chest Pain Problem 10/28/2019 12:00:00 AM ED T [facility] ([facility]) [id number] Cardiovascular measurement - finding Car diovascular Measurement - Finding Problem 10/28/2019 12:00:00 AM EDT [facility] ([facility]) [id number] Chest pain Chest Pain Problem 10/28/2019 12:00:00 AM ED T [facility] ([facility]) [id number] Cardiovascular measurement - finding Car diovascular Measurement - Finding Problem 10/28/2019 12:00:00 AM EDT [facility] ([facility]) [id number] Chest pain Chest Pain Problem 10/28/2019 12:00:00 AM ED T [facility] ([facility]) [id number] Cardiovascular measurement - finding Car diovascular Measurement - Finding Problem 10/28/2019 12:00:00 AM EDT [facility] ([facility]) [id number] Chest pain Chest Pain Problem 10/28/2019 12:00:00 AM ED T [facility] ([facility]) [id number] Cardiovascular measurement - finding Car diovascular Measurement - Finding Problem 10/28/2019 12:00:00 AM EDT [facility] ([facility]) [id number] Chest pain Chest Pain Problem 10/28/2019 12:00:00 AM ED T [facility] ([facility]) [id number] Cardiovascular measurement - finding Car diovascular Measurement - Finding Problem 10/28/2019 12:00:00 AM EDT [facility] ([facility]) [id number] Chest pain Chest Pain Problem 10/28/2019 12:00:00 AM ED T [facility] ([facility]) [id number] Cardiovascular measurement - finding Car diovascular Measurement - Finding Problem 10/28/2019 12:00:00 AM EDT [facility] ([facility]) [id number] Chest pain Chest Pain Problem 10/28/2019 12:00:00 AM ED T [facility] ([facility]) [id number] Cardiovascular measurement - finding Car diovascular Measurement - Finding Problem 10/28/2019 12:00:00 AM EDT [facility] ([facility]) [id number] Chest pain Chest Pain Problem 10/28/2019 12:00:00 AM ED T [facility] ([facility]) [id number] Cardiovascular measurement - finding Car diovascular Measurement - Finding Problem 10/28/2019 12:00:00 AM EDT [facility] ([facility]) [id number] Chest pain Chest Pain Problem 10/28/2019 12:00:00 AM ED T [facility] ([facility]) [id number] Cardiovascular measurement - finding Car diovascular Measurement - Finding Problem 10/28/2019 12:00:00 AM EDT [facility] ([facility]) [id number] Chest pain Chest Pain Problem 10/28/2019 12:00:00 AM ED T [facility] ([facility]) [id number] Cardiovascular measurement - finding Car diovascular Measurement - Finding Problem 10/28/2019 12:00:00 AM EDT [facility] ([facility]) [id number] Chest pain Chest Pain Problem 10/28/2019 12:00:00 AM ED T [place] ([facility]) 300.02 GENERALIZED ANXIETY DISORDER GENERALIZED ANXIETY DISOR SALLIE 10/14/2019 09:01:07 AM EDT [facility] 300.01 PANIC DISORDER PANIC DISORDER 10/14/2019 09:01: 07 AM EDT [facility] [id number] Panic disorder Panic Disorder Problem 10/14/2019 12:00:00 AM EDT - 06/22/2020 12:00:00 AM EDT [place] ([facility]) [id number] Panic disorder Panic Disorder Problem 10/14/2019 12:00:00 AM EDT - 06/22/2020 12:00:00 AM EDT [facility] ([facility]) [id number] Panic disorder Panic Disorder Problem 10/14/2019 12:00:00 AM EDT - 06/22/2020 12:00:00 AM EDT [facility] ([facility]) [id number] Panic disorder Panic Disorder Problem 10/14/2019 12:00:00 AM EDT - 06/22/2020 12:00:00 AM EDT [facility] ([facility]) [id number] Panic disorder Panic Disorder Problem 10/14/2019 12:00:00 AM EDT - 06/22/2020 12:00:00 AM EDT [facility] ([facility]) [id number] Panic disorder Panic Disorder Problem 10/14/2019 12:00:00 AM EDT - 06/22/2020 12:00:00 AM EDT [facility] ([facility]) [id number] Panic disorder Panic Disorder Problem 10/14/2019 12:00:00 AM EDT - 06/22/2020 12:00:00 AM EDT [facility] ([facility]) [id number] Panic disorder Panic Disorder Problem 10/14/2019 12:00:00 AM EDT - 06/22/2020 12:00:00 AM EDT [facility] ([facility]) [id number] Panic disorder Panic Disorder Problem 10/14/2019 12:00: 00 AM EDT [facility] ([facility]) [id number] Panic disorder Panic Disorder Problem 10/14/2019 12:00: 00 AM EDT [facility] ([facility]) [id number] Panic disorder Panic Disorder Problem 10/14/2019 12:00: 00 AM EDT [facility] ([facility]) [id number] Panic disorder Panic Disorder Problem 10/14/2019 12:00:00 AM EDT - 06/22/2020 12:00:00 AM EDT [facility] ([facility]) [id number] Panic disorder Panic Disorder Problem 10/14/2019 12:00:00 AM EDT - 06/22/2020 12:00:00 AM EDT [facility] ([facility]) [id number] Panic disorder Panic Disorder Problem 10/14/2019 12:00:00 AM EDT - 06/22/2020 12:00:00 AM EDT [facility] ([facility]) [id number] Panic disorder Panic Disorder Problem 10/14/2019 12:00:00 AM EDT - 06/22/2020 12:00:00 AM EDT [facility] ([facility]) [id number] Panic disorder Panic Disorder Problem 10/14/2019 12:00:00 AM EDT - 06/22/2020 12:00:00 AM EDT [facility] ([facility]) [id number] Panic disorder Panic Disorder Problem 10/14/2019 12:00:00 AM EDT - 06/22/2020 12:00:00 AM EDT [facility] ([facility]) [id number] Panic disorder Panic Disorder Problem 10/14/2019 12:00: 00 AM EDT [facility] ([facility]) [id number] Panic disorder Panic Disorder Problem 10/14/2019 12:00: 00 AM EDT [facility] ([facility]) [id number] Panic disorder Panic Disorder Problem 10/14/2019 12:00: 00 AM EDT [facility] ([facility]) [id number] Panic disorder Panic Disorder Problem 10/14/2019 12:00:00 AM EDT - 06/22/2020 12:00:00 AM EDT [facility] ([facility]) [id number] Panic disorder Panic Disorder Problem 10/14/2019 12:00:00 AM EDT - 06/22/2020 12:00:00 AM EDT [facility] ([facility]) [id number] Panic disorder Panic Disorder Problem 10/14/2019 12:00: 00 AM EDT [facility] ([facility]) [id number] Panic disorder Panic Disorder Problem 09/10/2019 12:00:00 AM EDT - 12/29/2019 12:00:00 AM EST [facility] ([facility]) [id number] Procedure by method Procedure by Method Problem 0 09/10/2019 12:00:00 AM EDT - 12/11/2019 12:00:00 AM EST [facility] ([facility]) [id number] Adjustment disorder with mixed anxiety a nd depressed mood Adjustment Disorder with Mixed Anxiety and Depressed Mood Problem 12:00:00 AM EDT - 06/22/2020 12:00:00 AM EDT [facility] ([facility]) [id number] Panic disorder Panic Disorder Problem 09/10/2019 12:00:00 AM EDT - 12/29/2019 12:00:00 AM EST [facility] ([facility]) [id number] Procedure by method Procedure by Method Problem 0 09/10/2019 12:00:00 AM EDT - 12/11/2019 12:00:00 AM EST [facility] ([facility]) [id number] Adjustment disorder with mixed anxiety a nd depressed mood Adjustment Disorder with Mixed Anxiety and Depressed Mood Problem 12:00:00 AM EDT - 06/22/2020 12:00:00 AM EDT [facility] ([facility]) [id number] Panic disorder Panic Disorder Problem 09/10/2019 12:00:00 AM EDT - 12/29/2019 12:00:00 AM EST [facility] ([facility]) [id number] Procedure by method Procedure by Method Problem 0 09/10/2019 12:00:00 AM EDT - 12/11/2019 12:00:00 AM EST [facility] ([facility]) [id number] Adjustment disorder with mixed anxiety a nd depressed mood Adjustment Disorder with Mixed Anxiety and Depressed Mood Problem 12:00:00 AM EDT - 06/22/2020 12:00:00 AM EDT [facility] ([facility]) [id number] Panic disorder Panic Disorder Problem 09/10/2019 12:00:00 AM EDT - 12/29/2019 12:00:00 AM EST [facility] ([facility]) [id number] Procedure by method Procedure by Method Problem 0 09/10/2019 12:00:00 AM EDT - 12/11/2019 12:00:00 AM EST [facility] ([facility]) [id number] Adjustment disorder with mixed anxiety a nd depressed mood Adjustment Disorder with Mixed Anxiety and Depressed Mood Problem 12:00:00 AM EDT - 06/22/2020 12:00:00 AM EDT [facility] ([facility]) [id number] Panic disorder Panic Disorder Problem 09/10/2019 12:00:00 AM EDT - 12/29/2019 12:00:00 AM EST [facility] ([facility]) [id number] Procedure by method Procedure by Method Problem 0 09/10/2019 12:00:00 AM EDT - 12/11/2019 12:00:00 AM EST [facility] ([facility]) [id number] Adjustment disorder with mixed anxiety a nd depressed mood Adjustment Disorder with Mixed Anxiety and Depressed Mood Problem 12:00:00 AM EDT - 06/22/2020 12:00:00 AM EDT [facility] ([facility]) [id number] Panic disorder Panic Disorder Problem 09/10/2019 12:00:00 AM EDT - 12/29/2019 12:00:00 AM EST [facility] ([facility]) [id number] Procedure by method Procedure by Method Problem 0 09/10/2019 12:00:00 AM EDT - 12/11/2019 12:00:00 AM EST [facility] ([facility]) [id number] Adjustment disorder with mixed anxiety a nd depressed mood Adjustment Disorder with Mixed Anxiety and Depressed Mood Problem 12:00:00 AM EDT - 06/22/2020 12:00:00 AM EDT [facility] ([facility]) [id number] Panic disorder Panic Disorder Problem 09/10/2019 12:00:00 AM EDT - 12/29/2019 12:00:00 AM EST [facility] ([facility]) [id number] Procedure by method Procedure by Method Problem 0 09/10/2019 12:00:00 AM EDT - 12/11/2019 12:00:00 AM EST [facility] ([facility]) [id number] Adjustment disorder with mixed anxiety a nd depressed mood Adjustment Disorder with Mixed Anxiety and Depressed Mood Problem 12:00:00 AM EDT - 06/22/2020 12:00:00 AM EDT [facility] ([facility]) [id number] Panic disorder Panic Disorder Problem 09/10/2019 12:00:00 AM EDT - 12/29/2019 12:00:00 AM EST [facility] ([facility]) [id number] Procedure by method Procedure by Method Problem 0 09/10/2019 12:00:00 AM EDT - 12/11/2019 12:00:00 AM EST [facility] ([facility]) [id number] Adjustment disorder with mixed anxiety a nd depressed mood Adjustment Disorder with Mixed Anxiety and Depressed Mood Problem 12:00:00 AM EDT - 06/22/2020 12:00:00 AM EDT [facility] ([facility]) [id number] Panic disorder Panic Disorder Problem 09/10/2019 12:00:00 AM EDT - 12/29/2019 12:00:00 AM EST [facility] ([facility]) [id number] Procedure by method Procedure by Method Problem 0 09/10/2019 12:00:00 AM EDT - 12/11/2019 12:00:00 AM EST [facility] ([facility]) [id number] Adjustment disorder with mixed anxiety a nd depressed mood Adjustment Disorder with Mixed Anxiety and Depressed Mood Problem 12:00:00 AM EDT - 06/22/2020 12:00:00 AM EDT [facility] ([facility]) [id number] Panic disorder Panic Disorder Problem 09/10/2019 12:00:00 AM EDT - 12/29/2019 12:00:00 AM EST [facility] ([facility]) [id number] Procedure by method Procedure by Method Problem 0 09/10/2019 12:00:00 AM EDT - 12/11/2019 12:00:00 AM EST [facility] ([facility]) [id number] Panic disorder Panic Disorder Problem 09/10/2019 12:00:00 AM EDT - 12/29/2019 12:00:00 AM EST [facility] ([facility]) [id number] Procedure by method Procedure by Method Problem 0 09/10/2019 12:00:00 AM EDT - 12/11/2019 12:00:00 AM EST [facility] ([facility]) [id number] Panic disorder Panic Disorder Problem 09/10/2019 12:00:00 AM EDT - 12/29/2019 12:00:00 AM EST [facility] ([facility]) [id number] Procedure by method Procedure by Method Problem 0 09/10/2019 12:00:00 AM EDT - 12/11/2019 12:00:00 AM EST [facility] ([facility]) [id number] Panic disorder Panic Disorder Problem 09/10/2019 12:00:00 AM EDT - 12/29/2019 12:00:00 AM EST [facility] ([facility]) [id number] Procedure by method Procedure by Method Problem 0 09/10/2019 12:00:00 AM EDT - 12/11/2019 12:00:00 AM EST [facility] ([facility]) [id number] Panic disorder Panic Disorder Problem 09/10/2019 12:00:00 AM EDT - 12/29/2019 12:00:00 AM EST [facility] ([facility]) [id number] Procedure by method Procedure by Method Problem 0 09/10/2019 12:00:00 AM EDT - 12/11/2019 12:00:00 AM EST [facility] ([facility]) [id number] Panic disorder Panic Disorder Problem 09/10/2019 12:00:00 AM EDT - 12/29/2019 12:00:00 AM EST [facility] ([facility]) [id number] Procedure by method Procedure by Method Problem 0 09/10/2019 12:00:00 AM EDT - 12/11/2019 12:00:00 AM EST [facility] ([facility]) [id number] Adjustment disorder with mixed anxiety a nd depressed mood Adjustment Disorder with Mixed Anxiety and Depressed Mood Problem 12:00:00 AM EDT - 06/22/2020 12:00:00 AM EDT [facility] ([facility]) [id number] Panic disorder Panic Disorder Problem 09/10/2019 12:00:00 AM EDT - 12/29/2019 12:00:00 AM EST [facility] ([facility]) [id number] Procedure by method Procedure by Method Problem 0 09/10/2019 12:00:00 AM EDT - 12/11/2019 12:00:00 AM EST [facility] ([facility]) [id number] Adjustment disorder with mixed anxiety a nd depressed mood Adjustment Disorder with Mixed Anxiety and Depressed Mood Problem 12:00:00 AM EDT - 06/22/2020 12:00:00 AM EDT [facility] ([facility]) [id number] Panic disorder Panic Disorder Problem 09/10/2019 12:00:00 AM EDT - 12/29/2019 12:00:00 AM EST [facility] ([facility]) [id number] Procedure by method Procedure by Method Problem 0 09/10/2019 12:00:00 AM EDT - 12/11/2019 12:00:00 AM EST [facility] ([facility]) [id number] Adjustment disorder with mixed anxiety a nd depressed mood Adjustment Disorder with Mixed Anxiety and Depressed Mood Problem 12:00:00 AM EDT - 06/22/2020 12:00:00 AM EDT [facility] ([facility]) [id number] Panic disorder Panic Disorder Problem 09/10/2019 12:00:00 AM EDT - 12/29/2019 12:00:00 AM EST [facility] ([facility]) [id number] Procedure by method Procedure by Method Problem 0 09/10/2019 12:00:00 AM EDT - 12/11/2019 12:00:00 AM EST [facility] ([facility]) [id number] Adjustment disorder with mixed anxiety a nd depressed mood Adjustment Disorder with Mixed Anxiety and Depressed Mood Problem 12:00:00 AM EDT - 06/22/2020 12:00:00 AM EDT [facility] ([facility]) [id number] Panic disorder Panic Disorder Problem 09/10/2019 12:00:00 AM EDT - 12/29/2019 12:00:00 AM EST [facility] ([facility]) [id number] Procedure by method Procedure by Method Problem 0 09/10/2019 12:00:00 AM EDT - 12/11/2019 12:00:00 AM EST [facility] ([facility]) [id number] Panic disorder Panic Disorder Problem 09/10/2019 12:00:00 AM EDT - 12/29/2019 12:00:00 AM EST [facility] ([facility]) [id number] Procedure by method Procedure by Method Problem 0 09/10/2019 12:00:00 AM EDT - 12/11/2019 12:00:00 AM EST [facility] ([facility]) [id number] Adjustment disorder with mixed anxiety a nd depressed mood Adjustment Disorder with Mixed Anxiety and Depressed Mood Problem 12:00:00 AM EDT - 06/22/2020 12:00:00 AM EDT [facility] ([facility]) [id number] Panic disorder Panic Disorder Problem 09/10/2019 12:00:00 AM EDT - 12/29/2019 12:00:00 AM EST [facility] ([facility]) [id number] Procedure by method Procedure by Method Problem 0 09/10/2019 12:00:00 AM EDT - 12/11/2019 12:00:00 AM EST [facility] ([facility]) [id number] Panic disorder Panic Disorder Problem 09/10/2019 12:00:00 AM EDT - 12/29/2019 12:00:00 AM EST [facility] ([facility]) [id number] Procedure by method Procedure by Method Problem 0 09/10/2019 12:00:00 AM EDT - 12/11/2019 12:00:00 AM EST [facility] ([facility]) [id number] Panic disorder Panic Disorder Problem 09/10/2019 12:00:00 AM EDT - 12/29/2019 12:00:00 AM EST [facility] ([facility]) [id number] Procedure by method Procedure by Method Problem 0 09/10/2019 12:00:00 AM EDT - 12/11/2019 12:00:00 AM EST [facility] ([facility]) [id number] Adjustment disorder with mixed anxiety a nd depressed mood Adjustment Disorder with Mixed Anxiety and Depressed Mood Problem 12:00:00 AM EDT - 06/22/2020 12:00:00 AM EDT [facility] ([facility]) [id number] Panic disorder Panic Disorder Problem 09/10/2019 12:00:00 AM EDT - 12/29/2019 12:00:00 AM EST [facility] ([facility]) [id number] Procedure by method Procedure by Method Problem 0 09/10/2019 12:00:00 AM EDT - 12/11/2019 12:00:00 AM EST [facility] ([facility]) [id number] Adjustment disorder with mixed anxiety a nd depressed mood Adjustment Disorder with Mixed Anxiety and Depressed Mood Problem 020 12:00:00 AM EDT - 06/22/2020 12:00:00 AM EDT [facility] ([facility]) [id number] Panic disorder Panic Disorder Problem 09/10/2019 12:00:00 AM EDT - 12/29/2019 12:00:00 AM EST [facility] ([facility]) [id number] Procedure by method Procedure by Method Problem 0 09/10/2019 12:00:00 AM EDT - 12/11/2019 12:00:00 AM EST [facility] ([facility]) [id number] Panic disorder Panic Disorder Problem 09/10/2019 12:00:00 AM EDT - 12/29/2019 12:00:00 AM EST [facility] ([facility]) [id number] Procedure by method Procedure by Method Problem 0 09/10/2019 12:00:00 AM EDT - 12/11/2019 12:00:00 AM EST [facility] ([facility]) [id number] Panic disorder Panic Disorder Problem 09/10/2019 12:00:00 AM EDT - 12/29/2019 12:00:00 AM EST [facility] ([facility]) [id number] Procedure by method Procedure by Method Problem 0 09/10/2019 12:00:00 AM EDT - 12/11/2019 12:00:00 AM EST [facility] ([facility]) [id number] Procedure by method Procedure by Method Problem 0 09/10/2019 12:00:00 AM EDT - 12/11/2019 12:00:00 AM EST [facility] ([facility]) [id number] Procedure by method Procedure by Method Problem 0 09/10/2019 12:00:00 AM EDT - 12/11/2019 12:00:00 AM EST [facility] ([facility]) [id number] Procedure by method Procedure by Method Problem 0 09/10/2019 12:00:00 AM EDT - 12/11/2019 12:00:00 AM EST [facility] ([facility]) [id number] Procedure by method Procedure by Method Problem 0 09/10/2019 12:00:00 AM EDT - 12/11/2019 12:00:00 AM EST [facility] ([facility]) [id number] Panic disorder Panic Disorder Problem 09/10/2019 12:00:00 AM EDT - 12/29/2019 12:00:00 AM EST [facility] ([facility]) [id number] Procedure by method Procedure by Method Problem 0 09/10/2019 12:00:00 AM EDT - 12/11/2019 12:00:00 AM EST [facility] ([facility]) [id number] Panic disorder Panic Disorder Problem 09/10/2019 12:00:00 AM EDT - 12/29/2019 12:00:00 AM EST [facility] ([facility]) [id number] Procedure by method Procedure by Method Problem 0 09/10/2019 12:00:00 AM EDT - 12/11/2019 12:00:00 AM EST [facility] ([facility]) [id number] Panic disorder Panic Disorder Problem 09/10/2019 12:00:00 AM EDT - 12/29/2019 12:00:00 AM EST [facility] ([facility]) [id number] Procedure by method Procedure by Method Problem 0 09/10/2019 12:00:00 AM EDT - 12/11/2019 12:00:00 AM EST [facility] ([facility]) [id number] Panic disorder Panic Disorder Problem 09/10/2019 12:00:00 AM EDT - 12/29/2019 12:00:00 AM EST [facility] ([facility]) [id number] Procedure by method Procedure by Method Problem 0 09/10/2019 12:00:00 AM EDT - 12/11/2019 12:00:00 AM EST [facility] ([facility]) [id number] Panic disorder Panic Disorder Problem 09/10/2019 12:00:00 AM EDT - 12/29/2019 12:00:00 AM EST [facility] ([facility]) [id number] Procedure by method Procedure by Method Problem 0 09/10/2019 12:00:00 AM EDT - 12/11/2019 12:00:00 AM EST [facility] ([facility]) [id number] Panic disorder Panic Disorder Problem 09/10/2019 12:00:00 AM EDT - 12/29/2019 12:00:00 AM EST [facility] ([facility]) [id number] Procedure by method Procedure by Method Problem 0 09/10/2019 12:00:00 AM EDT - 12/11/2019 12:00:00 AM EST [facility] ([facility]) [id number] Panic disorder Panic Disorder Problem 09/10/2019 12:00:00 AM EDT - 12/29/2019 12:00:00 AM EST [facility] ([facility]) [id number] Procedure by method Procedure by Method Problem 0 09/10/2019 12:00:00 AM EDT - 12/11/2019 12:00:00 AM EST [facility] ([facility]) Surgeries/Procedures Procedure Description Date Indications Data Source(s) XTRNL ECG < 48 HR RECORDING 01/12/2020 12:00:00 AM EST [facility] ([facility]) XTRNL ECG CONTINUOUS RHYTHM PHYS REVIEW&INTERPJ 2019 12:00:00 AM EST [facility] ([facility]) CV STRS TST XERS&/OR RX CONT ECG PHYS SI&R 01/08/2020 12:00:00 AM EST [facility] ([facility]) ECHO TTHRC R-T 2D W/WOM-MODE COMPL SPEC&COLR DOP 01/07 12:00:00 AM EST [facility] ([facility]) ECG ROUTINE ECG W/LEAST 12 LDS W/I&R 01/07/2020 12:00: 00 AM EST [facility] ([facility]) Results ID Date Data Source [id number] 04/29/2020 04:04:00 PM EDT [place] ([facility]) Name Value Range Interpretation Code Description Data Ellie rce(s) Supporting Document(s) istat HCT 45.0 % 38.0-51.0 Istat HCT [place] ([facility]) istat glucose 94 mg/dL 70-105 Istat Glucose [facility] ( [facility]) istat sodium 139 mEq/L 136-145 Istat Sodium [facility] ([facility]) istat chloride 99 mEq/L 98-109 Istat Chloride [facility] ([facility]) istat potassium 4.0 mEq/L 3.5-5.1 Istat Potassium [facility] ([facility]) istat Ca++ 5.1 mg/dL 4.5-5.3 Istat Ca++ [place] ([facility]) istat creatinine 1.1 mg/dL 0.6-1.3 Istat Creatinine AT [facility] ([facility]) istat BUN 19 mg/dL 8-26 Istat BUN [facility] ([facility]) istat CO2 29.0 mm/L 23.0-27.0 Above high normal Istat CO2 [place] ([facility]) ID Date Data Source [id number] 04/29/2020 04:04:00 PM EDT [facility]) Name Value Range Interpretation Code Description Data Ellie rce(s) Supporting Document(s) istat glucose 94 mg/dL 70-105 Istat Glucose [facility] ( [facility]) istat HCT 45.0 % 38.0-51.0 Istat HCT [facility] ([facility]) istat Ca++ 5.1 mg/dL 4.5-5.3 Istat Ca++ [facility] ([facility]) istat chloride 99 mEq/L 98-109 Istat Chloride [facility] ([facility]) istat sodium 139 mEq/L 136-145 Istat Sodium [facility] ([facility]) istat potassium 4.0 mEq/L 3.5-5.1 Istat Potassium ATHE NA ([facility]) istat BUN 19 mg/dL 8-26 Istat BUN [facility] ([facility]) istat CO2 29.0 mm/L 23.0-27.0 Above high normal Istat CO2 [facility] ([facility]) istat creatinine 1.1 mg/dL 0.6-1.3 Istat Creatinine AT [facility] ([facility]) ID Date Data Source [id number] 04/29/2020 04:04:00 PM EDT [facility]) Name Value Range Interpretation Code Description Data Ellie rce(s) Supporting Document(s) istat HCT 45.0 % 38.0-51.0 Istat HCT [facility] ([facility]) istat glucose 94 mg/dL 70-105 Istat Glucose [facility] ( [facility]) istat Ca++ 5.1 mg/dL 4.5-5.3 Istat Ca++ [facility] ([facility]) istat sodium 139 mEq/L 136-145 Istat Sodium [facility]DA ([facility]) istat potassium 4.0 mEq/L 3.5-5.1 Istat Potassium ATHE NA ([facility]) istat BUN 19 mg/dL 8-26 Istat BUN [facility] ([facility]) istat chloride 99 mEq/L 98-109 Istat Chloride [facility] ([facility]) istat CO2 29.0 mm/L 23.0-27.0 Above high normal Istat CO2 [facility] ([facility]) istat creatinine 1.1 mg/dL 0.6-1.3 Istat Creatinine AT [facility] ([facility]) ID Date Data Source [id number] 04/29/2020 04:04:00 PM EDT [facility] ([facility]) Name Value Range Interpretation Code Description Data Ellie rce(s) Supporting Document(s) istat HCT 45.0 % 38.0-51.0 Istat HCT [facility] ([facility]) istat glucose 94 mg/dL 70-105 Istat Glucose [facility] ( [facility]) istat sodium 139 mEq/L 136-145 Istat Sodium [facility]DA ([facility]) istat potassium 4.0 mEq/L 3.5-5.1 Istat Potassium ATHE NA ([facility]) istat Ca++ 5.1 mg/dL 4.5-5.3 Istat Ca++ [facility] ([facility]) istat CO2 29.0 mm/L 23.0-27.0 Above high normal Istat CO2 [facility] ([facility]) istat chloride 99 mEq/L 98-109 Istat Chloride [facility] ([facility]) istat BUN 19 mg/dL 8-26 Istat BUN [facility] ([facility]) istat creatinine 1.1 mg/dL 0.6-1.3 Istat Creatinine AT [facility] ([facility]) ID Date Data Source [id number] 04/29/2020 04:04:00 PM EDT [place] ([facility]) Name Value Range Interpretation Code Description Data Ellie rce(s) Supporting Document(s) istat HCT 45.0 % 38.0-51.0 Istat HCT [facility] ([facility]) istat potassium 4.0 mEq/L 3.5-5.1 Istat Potassium ATH NA ([facility]) istat glucose 94 mg/dL 70-105 Istat Glucose [place] ( [facility]) istat sodium 139 mEq/L 136-145 Istat Sodium [facility] ([facility]) istat CO2 29.0 mm/L 23.0-27.0 Above high normal Istat CO2 [facility] ([facility]) istat chloride 99 mEq/L 98-109 Istat Chloride [facility] ([facility]) istat Ca++ 5.1 mg/dL 4.5-5.3 Istat Ca++ [facility] ([facility]) istat creatinine 1.1 mg/dL 0.6-1.3 Istat Creatinine AT [facility] ([facility]) istat BUN 19 mg/dL 8-26 Istat BUN [place] ([facility]) ID Date Data Source [id number] 04/29/2020 04:04:00 PM EDT [place] ([facility]) Name Value Range Interpretation Code Description Data Ellie rce(s) Supporting Document(s) istat HCT 45.0 % 38.0-51.0 Istat HCT [facility] ([facility]) istat potassium 4.0 mEq/L 3.5-5.1 Istat Potassium ATHE NA ([facility]) istat glucose 94 mg/dL 70-105 Istat Glucose [facility] ( [facility]) istat sodium 139 mEq/L 136-145 Istat Sodium [facility] ([facility]) istat CO2 29.0 mm/L 23.0-27.0 Above high normal Istat CO2 [facility] ([facility]) istat Ca++ 5.1 mg/dL 4.5-5.3 Istat Ca++ [facility] ([facility]) istat chloride 99 mEq/L 98-109 Istat Chloride [facility] ([facility]) istat creatinine 1.1 mg/dL 0.6-1.3 Istat Creatinine AT [facility]) istat BUN 19 mg/dL 8-26 Istat BUN [facility] ([facility]) ID Date Data Source [id number] 04/29/2020 04:04:00 PM EDT [place] ([facility]) Name Value Range Interpretation Code Description Data Ellie rce(s) Supporting Document(s) istat HCT 45.0 % 38.0-51.0 Istat HCT [facility] ([facility]) istat Ca++ 5.1 mg/dL 4.5-5.3 Istat Ca++ [facility] ([facility]) istat glucose 94 mg/dL 70-105 Istat Glucose [facility] ( [facility]) istat sodium 139 mEq/L 136-145 Istat Sodium [facility] ([facility]) istat potassium 4.0 mEq/L 3.5-5.1 Istat Potassium ATHE NA ([facility]) istat chloride 99 mEq/L 98-109 Istat Chloride [facility] ([facility]) istat BUN 19 mg/dL 8-26 Istat BUN [facility] ([facility]) istat CO2 29.0 mm/L 23.0-27.0 Above high normal Istat CO2 [facility] ([facility]) istat creatinine 1.1 mg/dL 0.6-1.3 Istat Creatinine AT [facility]) ID Date Data Source [id number] 04/29/2020 04:04:00 PM EDT [place] ([facility]) Name Value Range Interpretation Code Description Data Ellie rce(s) Supporting Document(s) istat HCT 45.0 % 38.0-51.0 Istat HCT [facility] ([facility]) istat glucose 94 mg/dL 70-105 Istat Glucose [facility] ( [facility]) istat sodium 139 mEq/L 136-145 Istat Sodium [facility] ([facility]) istat potassium 4.0 mEq/L 3.5-5.1 Istat Potassium ATHE NA ([facility]) istat Ca++ 5.1 mg/dL 4.5-5.3 Istat Ca++ [facility] ([facility]) istat CO2 29.0 mm/L 23.0-27.0 Above high normal Istat CO2 [place] ([facility]) istat chloride 99 mEq/L 98-109 Istat Chloride [facility] ([facility]) istat BUN 19 mg/dL 8-26 Istat BUN [facility] ([facility]) istat creatinine 1.1 mg/dL 0.6-1.3 Istat Creatinine AT [facility]) ID Date Data Source [id number] 04/29/2020 04:04:00 PM EDT [facility] ([facility]) Name Value Range Interpretation Code Description Data Ellie rce(s) Supporting Document(s) istat HCT 45.0 % 38.0-51.0 Istat HCT [facility] ([facility]) istat sodium 139 mEq/L 136-145 Istat Sodium [facility] ([facility]) istat glucose 94 mg/dL 70-105 Istat Glucose [facility] ( [facility]) istat potassium 4.0 mEq/L 3.5-5.1 Istat Potassium ATHE NA ([facility]) istat Ca++ 5.1 mg/dL 4.5-5.3 Istat Ca++ [facility] ([facility]) istat CO2 29.0 mm/L 23.0-27.0 Above high normal Istat CO2 [facility] ([facility]) istat chloride 99 mEq/L 98-109 Istat Chloride [facility] ([facility]) istat creatinine 1.1 mg/dL 0.6-1.3 Istat Creatinine AT [facility] ([facility]) istat BUN 19 mg/dL 8-26 Istat BUN [facility] ([facility]) ID Date Data Source [id number] 04/29/2020 03:56:00 PM EDT [place] ([facility]) Name Value Range Interpretation Code Description Data Ellie rce(s) Supporting Document(s) glucose, fasting 97 mg/dL 70-100 Glucose, Fasting AT [facility] ([facility]) glomerular filtration rate > 60.0 >60 Glomerula r Filtration Rate [facility] ([facility]) blood urea nitrogen 19 mg/dL 7-18 Above high normal Blood Ure a Nitrogen [facility] ([facility]) sodium level 137 mEq/L 136-145 Sodium Level [facility] ([facility]) creatinine for GFR 1.12 mg/dL 0.70-1.30 Creatinine for GF R [facility] ([facility]) chloride level 103 mEq/L 98-107 Chloride Level [facility] ([facility]) carbon dioxide level 31 mEq/L 21-32 Carbon Dioxide Level [place] ([facility]) potassium serum 4.1 mEq/L 3.5-5.1 Potassium Serum ATHE NA ([facility]) anion gap 3 mEq/L 8-16 Below low normal Anion Gap [facility] ( [facility]) calcium level 9.3 mg/dL 8.5-10.1 Calcium Level [facility]) ID Date Data Source [id number] 04/29/2020 03:56:00 PM EDT [place] ([facility]) Name Value Range Interpretation Code Description Data Ellie rce(s) Supporting Document(s) ALT/SGPT 25 U/L 12-78 ALT/SGPT [facility] ([facility]) AST/SGOT 13 U/L 7-37 AST/SGOT [facility] ([facility]) bilirubin,total 0.5 mg/dL 0.2-1.0 Bilirubin,total ATHE ([facility]) bilirubin,direct 0.2 mg/dL 0.0-0.2 Bilirubin,direct AT [facility] ([facility]) total protein 7.0 gm/dL 6.4-8.2 Total Protein [facility] ( [facility]) alkaline phosphatase 76 U/L 45-117 Alkaline Phosph atase [facility] ([facility]) albumin 4.0 gm/dL 3.2-5.2 Albumin [facility] ([facility]) albumin/globulin ratio Albumin/globu wu Ratio [facility] ([facility]) ID Date Data Source [id number] 04/29/2020 03:56:00 PM EDT [facility] ([facility]) Name Value Range Interpretation Code Description Data Ellie rce(s) Supporting Document(s) CK-mb value mass 1.1 NG/mL <3.6 CK-mb Value Mass AT [facility] ([facility]) CPK creatine phosphokinase 142 U/L 39-308 CPK Creat ine Phosphokinase [facility] ([facility]) troponin I < 0.02 < 0.10 Troponin I [facility] ([facility]) mb/CK relative index < or =4 mb/CK Relative Index [facility] ([facility]) ID Date Data Source [id number] 04/29/2020 03:56:00 PM EDT [facility] ([facility]) Name Value Range Interpretation Code Description Data Ellie rce(s) Supporting Document(s) partial thromboplastin time 30.8 seconds 24.2-38.5 Partial Thromboplastin Time [facility] ([facility]) ID Date Data Source [id number] 04/29/2020 03:56:00 PM EDT [facility] ([facility]) Name Value Range Interpretation Code Description Data Ellie rce(s) Supporting Document(s) prothrombin time 13.2 seconds 12.5-14.3 Prothrombin Time [facility] ([facility]) INR Inr [facility] ([facility]) ID Date Data Source [id number] 04/29/2020 03:56:00 PM EDT [facility] ([facility]) Name Value Range Interpretation Code Description Data Ellie rce(s) Supporting Document(s) white blood count 6.3 10 4.0-10.0 White Blood Count [facility] ([facility]) red blood count 5.45 10 4.30-6.10 Red Blood Count ATHE ([facility]) hematocrit 45.6 % 42.0-52.0 Hematocrit [facility] ([facility]) hemoglobin 15.1 g/dL 13.5-17.5 Hemoglobin [facility] ([facility]) mean corpuscular volume 83.7 fL 80.0-96.0 Mean Corpusc ular Volume [facility] ([facility]) mean corpuscular hemoglobin 27.7 pg 27.0-33.0 Mean Cor puscular Hemoglobin [facility] ([facility]) red cell distribution width 13.5 % 11.5-14.5 Red Cell Distribution Width [facility] ([facility]) mean corpuscular HGB conc 33.1 g/dL 32.0-36.5 Mean Corpu scular HGB Conc [facility] ([facility]) platelet count, automated 230 10 150-450 Platelet C ount, Automated [facility] ([facility]) mono % 9.6 % 2.0-8.0 Above high normal [place] % [facility]DA ([facility]) neutrophils % 53.2 % 36.0-66.0 Neutrophils % [facility] ( [facility]) lymph % 33.6 % 24.0-44.0 Lymph % [facility]DA ([facility]) immature granulocyte % 0.3 % 0-3.0 Immature Gran ulocyte % [facility] ([facility]) eos % 2.7 % 0.0-3.0 Eos % [facility] ([facility]) baso % 0.6 % 0.0-1.0 Baso % [facility]AD ([facility]) lymph # 2.1 10 1.5-5.0 Lymph # [facility]DA ([facility]) neutrophils # 3.4 10 1.5-8.5 Neutrophils # H[facility]DA ( [facility]) nucleated red blood cell % 0.0 % 0-0 Nucleated Red Blood Cell % [facility] ([facility]) mono # 0.6 10 0.0-0.8 [place] # HILDA ([facility]) eos # 0.2 10 0.0-0.5 Eos # [facility]DA ([facility]) baso # 0.0 10 0.0-0.2 Baso # [facility]DA ([facility]) ID Date Data Source [id number] 04/29/2020 03:56:00 PM EDT [place] ([facility]) Name Value Range Interpretation Code Description Data Ellie rce(s) Supporting Document(s) creatinine for GFR 1.12 mg/dL 0.70-1.30 Creatinine for GF R [place] ([facility]) glucose, fasting 97 mg/dL 70-100 Glucose, Fasting AT [facility]) blood urea nitrogen 19 mg/dL 7-18 Above high normal Blood Ure a Nitrogen [facility] ([facility]) glomerular filtration rate > 60.0 >60 Glomerula r Filtration Rate [facility] ([facility]) carbon dioxide level 31 mEq/L 21-32 Carbon Dioxide Level [place] ([facility]) chloride level 103 mEq/L 98-107 Chloride Level [place] ([facility]) anion gap 3 mEq/L 8-16 Below low normal Anion Gap [place] ( [facility]) potassium serum 4.1 mEq/L 3.5-5.1 Potassium Serum ATH NA ([facility]) sodium level 137 mEq/L 136-145 Sodium Level [facility] ([facility]) calcium level 9.3 mg/dL 8.5-10.1 Calcium Level [facility] ( [facility]) ID Date Data Source [id number] 04/29/2020 03:56:00 PM EDT [facility] ([facility]) Name Value Range Interpretation Code Description Data Ellie rce(s) Supporting Document(s) ALT/SGPT 25 U/L 12-78 ALT/SGPT [facility] ([facility]) alkaline phosphatase 76 U/L 45-117 Alkaline Phosph atase [facility] ([facility]) AST/SGOT 13 U/L 7-37 AST/SGOT [facility] ([facility]) bilirubin,total 0.5 mg/dL 0.2-1.0 Bilirubin,total ATHE ([facility]) bilirubin,direct 0.2 mg/dL 0.0-0.2 Bilirubin,direct AT [facility] ([facility]) albumin/globulin ratio Albumin/globu wu Ratio [facility] ([facility]) albumin 4.0 gm/dL 3.2-5.2 Albumin [facility] ([facility]) total protein 7.0 gm/dL 6.4-8.2 Total Protein [facility] ( [facility]) ID Date Data Source [id number] 04/29/2020 03:56:00 PM EDT [facility] ([facility]) Name Value Range Interpretation Code Description Data Ellie rce(s) Supporting Document(s) CK-mb value mass 1.1 NG/mL <3.6 CK-mb Value Mass AT [facility] ([facility]) CPK creatine phosphokinase 142 U/L 39-308 CPK Creat ine Phosphokinase [facility] ([facility]) mb/CK relative index < or =4 mb/CK Relative Index [facility] ([facility]) troponin I < 0.02 < 0.10 Troponin I [facility] ([facility]) ID Date Data Source [id number] 04/29/2020 03:56:00 PM EDT [facility] ([facility]) Name Value Range Interpretation Code Description Data Ellie rce(s) Supporting Document(s) partial thromboplastin time 30.8 seconds 24.2-38.5 Partial Thromboplastin Time [facility] ([facility]) ID Date Data Source [id number] 04/29/2020 03:56:00 PM EDT [facility] ([facility]) Name Value Range Interpretation Code Description Data Ellie rce(s) Supporting Document(s) prothrombin time 13.2 seconds 12.5-14.3 Prothrombin Time [facility] ([facility]) INR Inr [facility] ([facility]) ID Date Data Source [id number] 04/29/2020 03:56:00 PM EDT [facility] ([facility]) Name Value Range Interpretation Code Description Data Ellie rce(s) Supporting Document(s) white blood count 6.3 10 4.0-10.0 White Blood Count [facility] ([facility]) hematocrit 45.6 % 42.0-52.0 Hematocrit [facility] ([facility]) red blood count 5.45 10 4.30-6.10 Red Blood Count AT[facility] ([facility]) hemoglobin 15.1 g/dL 13.5-17.5 Hemoglobin [place] ([facility]) mean corpuscular volume 83.7 fL 80.0-96.0 Mean Corpusc ular Volume [facility] ([facility]) mean corpuscular HGB conc 33.1 g/dL 32.0-36.5 Mean Corpu scular HGB Conc [facility] ([facility]) mean corpuscular hemoglobin 27.7 pg 27.0-33.0 Mean Cor puscular Hemoglobin [facility] ([facility]) red cell distribution width 13.5 % 11.5-14.5 Red Cell Distribution Width [facility] ([facility]) platelet count, automated 230 10 150-450 Platelet C ount, Automated [facility] ([facility]) neutrophils % 53.2 % 36.0-66.0 Neutrophils % [facility] ( [facility]) mono % 9.6 % 2.0-8.0 Above high normal [place] % [facility] ([facility]) baso % 0.6 % 0.0-1.0 Baso % [facility] ([facility]) eos % 2.7 % 0.0-3.0 Eos % [facility] ([facility]) lymph % 33.6 % 24.0-44.0 Lymph % [facility] ([facility]) neutrophils # 3.4 10 1.5-8.5 Neutrophils # [facility] ( [facility]) nucleated red blood cell % 0.0 % 0-0 Nucleated Red Blood Cell % [facility] ([facility]) immature granulocyte % 0.3 % 0-3.0 Immature Gran ulocyte % [facility] ([facility]) lymph # 2.1 10 1.5-5.0 Lymph # [facility] ([facility]) baso # 0.0 10 0.0-0.2 Baso # [facility] ([facility]) mono # 0.6 10 0.0-0.8 [place] # [facility] ([facility]) eos # 0.2 10 0.0-0.5 Eos # [facility] ([facility]) ID Date Data Source [id number] 04/29/2020 03:56:00 PM EDT [place] ([facility]) Name Value Range Interpretation Code Description Data Ellie rce(s) Supporting Document(s) glomerular filtration rate > 60.0 >60 Glomerula r Filtration Rate [facility] ([facility]) creatinine for GFR 1.12 mg/dL 0.70-1.30 Creatinine for GF R [facility] ([facility]) glucose, fasting 97 mg/dL 70-100 Glucose, Fasting AT [facility]) blood urea nitrogen 19 mg/dL 7-18 Above high normal Blood Ure a Nitrogen [facility] ([facility]) sodium level 137 mEq/L 136-145 Sodium Level [facility] ([facility]) carbon dioxide level 31 mEq/L 21-32 Carbon Dioxide Level [facility] ([facility]) anion gap 3 mEq/L 8-16 Below low normal Anion Gap [facility] ( [facility]) potassium serum 4.1 mEq/L 3.5-5.1 Potassium Serum ATHE NA ([facility]) chloride level 103 mEq/L 98-107 Chloride Level [facility] ([facility]) calcium level 9.3 mg/dL 8.5-10.1 Calcium Level [facility] ( [facility]) ID Date Data Source [id number] 04/29/2020 03:56:00 PM EDT [facility] ([facility]) Name Value Range Interpretation Code Description Data Ellie rce(s) Supporting Document(s) AST/SGOT 13 U/L 7-37 AST/SGOT [facility] ([facility]) ALT/SGPT 25 U/L 12-78 ALT/SGPT [facility] ([facility]) total protein 7.0 gm/dL 6.4-8.2 Total Protein [facility] ( [facility]) bilirubin,total 0.5 mg/dL 0.2-1.0 Bilirubin,total AT[facility] ([facility]) bilirubin,direct 0.2 mg/dL 0.0-0.2 Bilirubin,direct AT [facility] ([facility]) alkaline phosphatase 76 U/L 45-117 Alkaline Phosph atase [facility] ([facility]) albumin 4.0 gm/dL 3.2-5.2 Albumin [facility] ([facility]) albumin/globulin ratio Albumin/globu wu Ratio [facility] ([facility]) ID Date Data Source [id number] 04/29/2020 03:56:00 PM EDT [facility] ([facility]) Name Value Range Interpretation Code Description Data Ellie rce(s) Supporting Document(s) CK-mb value mass 1.1 NG/mL <3.6 CK-mb Value Mass AT [facility] ([facility]) CPK creatine phosphokinase 142 U/L 39-308 CPK Creat ine Phosphokinase [facility] ([facility]) troponin I < 0.02 < 0.10 Troponin I [facility] ([facility]) mb/CK relative index < or =4 mb/CK Relative Index [facility] ([facility]) ID Date Data Source [id number] 04/29/2020 03:56:00 PM EDT [facility] ([facility]) Name Value Range Interpretation Code Description Data Ellie rce(s) Supporting Document(s) partial thromboplastin time 30.8 seconds 24.2-38.5 Partial Thromboplastin Time [facility] ([facility]) ID Date Data Source [id number] 04/29/2020 03:56:00 PM EDT [facility] ([facility]) Name Value Range Interpretation Code Description Data Ellie rce(s) Supporting Document(s) INR Inr [facility] ([facility]) prothrombin time 13.2 seconds 12.5-14.3 Prothrombin Time [facility] ([facility]) ID Date Data Source [id number] 04/29/2020 03:56:00 PM EDT [facility] ([facility]) Name Value Range Interpretation Code Description Data Ellie rce(s) Supporting Document(s) red blood count 5.45 10 4.30-6.10 Red Blood Count AT[facility] ([facility]) white blood count 6.3 10 4.0-10.0 White Blood Count [facility] ([facility]) hemoglobin 15.1 g/dL 13.5-17.5 Hemoglobin [facility] ([facility]) hematocrit 45.6 % 42.0-52.0 Hematocrit [facility] ([facility]) mean corpuscular volume 83.7 fL 80.0-96.0 Mean Corpusc ular Volume [facility] ([facility]) platelet count, automated 230 10 150-450 Platelet C ount, Automated [facility] ([facility]) red cell distribution width 13.5 % 11.5-14.5 Red Cell Distribution Width [facility] ([facility]) mean corpuscular hemoglobin 27.7 pg 27.0-33.0 Mean Cor puscular Hemoglobin [facility] ([facility]) mean corpuscular HGB conc 33.1 g/dL 32.0-36.5 Mean Corpu scular HGB Conc [facility] ([facility]) neutrophils % 53.2 % 36.0-66.0 Neutrophils % [facility] ( [facility]) lymph % 33.6 % 24.0-44.0 Lymph % [facility] ([facility]) mono % 9.6 % 2.0-8.0 Above high normal [place] % [facility] ([facility]) eos % 2.7 % 0.0-3.0 Eos % [facility] ([facility]) baso % 0.6 % 0.0-1.0 Baso % [place] ([facility]) immature granulocyte % 0.3 % 0-3.0 Immature Gran ulocyte % [facility] ([facility]) neutrophils # 3.4 10 1.5-8.5 Neutrophils # [facility] ( [facility]) nucleated red blood cell % 0.0 % 0-0 Nucleated Red Blood Cell % [facility] ([facility]) mono # 0.6 10 0.0-0.8 [place] # [facility] ([facility]) baso # 0.0 10 0.0-0.2 Baso # [facility] ([facility]) lymph # 2.1 10 1.5-5.0 Lymph # [facility] ([facility]) eos # 0.2 10 0.0-0.5 Eos # [facility] ([facility]) ID Date Data Source [id number] 04/29/2020 03:56:00 PM EDT [facility] ([facility]) Name Value Range Interpretation Code Description Data Ellie rce(s) Supporting Document(s) CPK creatine phosphokinase 142 U/L 39-308 CPK Creat ine Phosphokinase [facility] ([facility]) mb/CK relative index < or =4 mb/CK Relative Index [facility] ([facility]) CK-mb value mass 1.1 NG/mL <3.6 CK-mb Value Mass AT [facility] ([facility]) troponin I < 0.02 < 0.10 Troponin I [facility] ([facility]) ID Date Data Source [id number] 04/29/2020 03:56:00 PM EDT [facility] ([facility]) Name Value Range Interpretation Code Description Data Ellie rce(s) Supporting Document(s) partial thromboplastin time 30.8 seconds 24.2-38.5 Partial Thromboplastin Time [facility] ([facility]) ID Date Data Source [id number] 04/29/2020 03:56:00 PM EDT [facility] ([facility]) Name Value Range Interpretation Code Description Data Ellie rce(s) Supporting Document(s) prothrombin time 13.2 seconds 12.5-14.3 Prothrombin Time [facility] ([facility]) INR Inr [facility] ([facility]) ID Date Data Source [id number] 04/29/2020 03:56:00 PM EDT [facility] ([facility]) Name Value Range Interpretation Code Description Data Ellie rce(s) Supporting Document(s) white blood count 6.3 10 4.0-10.0 White Blood Count [facility] ([facility]) red blood count 5.45 10 4.30-6.10 Red Blood Count ATHE NA ([facility]) hemoglobin 15.1 g/dL 13.5-17.5 Hemoglobin [facility]DA ([facility]) mean corpuscular volume 83.7 fL 80.0-96.0 Mean Corpusc ular Volume [facility]DA ([facility]) mean corpuscular hemoglobin 27.7 pg 27.0-33.0 Mean Cor puscular Hemoglobin [facility] ([facility]) hematocrit 45.6 % 42.0-52.0 Hematocrit [facility] ([facility]) red cell distribution width 13.5 % 11.5-14.5 Red Cell Distribution Width [facility] ([facility]) mean corpuscular HGB conc 33.1 g/dL 32.0-36.5 Mean Corpu scular HGB Conc [facility] ([facility]) platelet count, automated 230 10 150-450 Platelet C ount, Automated [place] ([facility]) mono % 9.6 % 2.0-8.0 Above high normal [place] % [place] ([facility]) lymph % 33.6 % 24.0-44.0 Lymph % [place] ([facility]) neutrophils % 53.2 % 36.0-66.0 Neutrophils % [facility] ( [facility]) eos % 2.7 % 0.0-3.0 Eos % [place] ([facility]) baso % 0.6 % 0.0-1.0 Baso % [place] ([facility]) immature granulocyte % 0.3 % 0-3.0 Immature Gran ulocyte % [place] ([facility]) nucleated red blood cell % 0.0 % 0-0 Nucleated Red Blood Cell % [place] ([facility]) neutrophils # 3.4 10 1.5-8.5 Neutrophils # [place] ( [facility]) lymph # 2.1 10 1.5-5.0 Lymph # [place] ([facility]) mono # 0.6 10 0.0-0.8 [place] # [place] ([facility]) eos # 0.2 10 0.0-0.5 Eos # [place] ([facility]) baso # 0.0 10 0.0-0.2 Baso # [place] ([facility]) ID Date Data Source [id number] 04/29/2020 03:56:00 PM EDT [place] ([facility]) Name Value Range Interpretation Code Description Data Ellie rce(s) Supporting Document(s) blood urea nitrogen 19 mg/dL 7-18 Above high normal Blood Ure a Nitrogen [place] ([facility]) creatinine for GFR 1.12 mg/dL 0.70-1.30 Creatinine for GF R [place] ([facility]) glucose, fasting 97 mg/dL 70-100 Glucose, Fasting AT [facility] ([facility]) chloride level 103 mEq/L 98-107 Chloride Level [facility] ([facility]) sodium level 137 mEq/L 136-145 Sodium Level [facility] ([facility]) potassium serum 4.1 mEq/L 3.5-5.1 Potassium Serum ATHE ([facility]) carbon dioxide level 31 mEq/L 21-32 Carbon Dioxide Level [facility] ([facility]) glomerular filtration rate > 60.0 >60 Glomerula r Filtration Rate [facility] ([facility]) calcium level 9.3 mg/dL 8.5-10.1 Calcium Level [facility] ( [facility]) anion gap 3 mEq/L 8-16 Below low normal Anion Gap [facility] ( [facility]) ID Date Data Source [id number] 04/29/2020 03:56:00 PM EDT [facility] ([facility]) Name Value Range Interpretation Code Description Data Ellie rce(s) Supporting Document(s) AST/SGOT 13 U/L 7-37 AST/SGOT [facility] ([facility]) bilirubin,direct 0.2 mg/dL 0.0-0.2 Bilirubin,direct AT [facility]) ALT/SGPT 25 U/L 12-78 ALT/SGPT [facility] ([facility]) bilirubin,total 0.5 mg/dL 0.2-1.0 Bilirubin,total ATHE ([facility]) alkaline phosphatase 76 U/L 45-117 Alkaline Phosph atase [facility] ([facility]) albumin/globulin ratio Albumin/globu wu Ratio [facility] ([facility]) albumin 4.0 gm/dL 3.2-5.2 Albumin [facility] ([facility]) total protein 7.0 gm/dL 6.4-8.2 Total Protein [facility] ( [facility]) ID Date Data Source [id number] 04/29/2020 03:56:00 PM EDT [facility] ([facility]) Name Value Range Interpretation Code Description Data Ellie rce(s) Supporting Document(s) mb/CK relative index < or =4 mb/CK Relative Index [facility] ([facility]) CPK creatine phosphokinase 142 U/L 39-308 CPK Creat ine Phosphokinase [facility] ([facility]) CK-mb value mass 1.1 NG/mL <3.6 CK-mb Value Mass AT [facility] ([facility]) troponin I < 0.02 < 0.10 Troponin I [facility] ([facility]) ID Date Data Source [id number] 04/29/2020 03:56:00 PM EDT [facility] ([facility]) Name Value Range Interpretation Code Description Data Ellie rce(s) Supporting Document(s) partial thromboplastin time 30.8 seconds 24.2-38.5 Partial Thromboplastin Time [facility] ([facility]) ID Date Data Source [id number] 04/29/2020 03:56:00 PM EDT [facility] ([facility]) Name Value Range Interpretation Code Description Data Ellie rce(s) Supporting Document(s) prothrombin time 13.2 seconds 12.5-14.3 Prothrombin Time [facility] ([facility]) INR Inr [facility] ([facility]) ID Date Data Source [id number] 04/29/2020 03:56:00 PM EDT [facility] ([facility]) Name Value Range Interpretation Code Description Data Ellie rce(s) Supporting Document(s) white blood count 6.3 10 4.0-10.0 White Blood Count [facility] ([facility]) hemoglobin 15.1 g/dL 13.5-17.5 Hemoglobin [facility] ([facility]) red blood count 5.45 10 4.30-6.10 Red Blood Count ATHE ([facility]) hematocrit 45.6 % 42.0-52.0 Hematocrit [facility] ([facility]) mean corpuscular hemoglobin 27.7 pg 27.0-33.0 Mean Cor puscular Hemoglobin [facility] ([facility]) mean corpuscular volume 83.7 fL 80.0-96.0 Mean Corpusc ular Volume [facility] ([facility]) red cell distribution width 13.5 % 11.5-14.5 Red Cell Distribution Width [facility] ([facility]) platelet count, automated 230 10 150-450 Platelet C ount, Automated [facility] ([facility]) mean corpuscular HGB conc 33.1 g/dL 32.0-36.5 Mean Corpu scular HGB Conc [facility] ([facility]) mono % 9.6 % 2.0-8.0 Above high normal [place] % [place] ([facility]) lymph % 33.6 % 24.0-44.0 Lymph % [place] ([facility]) neutrophils % 53.2 % 36.0-66.0 Neutrophils % [place] ( [facility]) immature granulocyte % 0.3 % 0-3.0 Immature Gran ulocyte % [place] ([facility]) eos % 2.7 % 0.0-3.0 Eos % [place] ([facility]) baso % 0.6 % 0.0-1.0 Baso % [place] ([facility]) neutrophils # 3.4 10 1.5-8.5 Neutrophils # [place] ( [facility]) nucleated red blood cell % 0.0 % 0-0 Nucleated Red Blood Cell % [place] ([facility]) mono # 0.6 10 0.0-0.8 [place] # [place] ([facility]) lymph # 2.1 10 1.5-5.0 Lymph # [facility] ([facility]) eos # 0.2 10 0.0-0.5 Eos # [facility] ([facility]) baso # 0.0 10 0.0-0.2 Baso # [place] ([facility]) ID Date Data Source [id number] 04/29/2020 03:56:00 PM EDT [place] ([facility]) Name Value Range Interpretation Code Description Data Ellie rce(s) Supporting Document(s) glucose, fasting 97 mg/dL 70-100 Glucose, Fasting AT [facility] ([facility]) creatinine for GFR 1.12 mg/dL 0.70-1.30 Creatinine for GF R [facility] ([facility]) glomerular filtration rate > 60.0 >60 Glomerula r Filtration Rate [facility] ([facility]) blood urea nitrogen 19 mg/dL 7-18 Above high normal Blood Ure a Nitrogen [facility] ([facility]) sodium level 137 mEq/L 136-145 Sodium Level [facility] ([facility]) chloride level 103 mEq/L 98-107 Chloride Level [facility] ([facility]) potassium serum 4.1 mEq/L 3.5-5.1 Potassium Serum ATH NA ([facility]) calcium level 9.3 mg/dL 8.5-10.1 Calcium Level [place] ( [facility]) carbon dioxide level 31 mEq/L 21-32 Carbon Dioxide Level [place] ([facility]) anion gap 3 mEq/L 8-16 Below low normal Anion Gap [facility] ( [facility]) ID Date Data Source [id number] 04/29/2020 03:56:00 PM EDT [place] ([facility]) Name Value Range Interpretation Code Description Data Ellie rce(s) Supporting Document(s) AST/SGOT 13 U/L 7-37 AST/SGOT [facility] ([facility]) ALT/SGPT 25 U/L 12-78 ALT/SGPT [place] ([facility]) bilirubin,direct 0.2 mg/dL 0.0-0.2 Bilirubin,direct AT [facility] ([facility]) alkaline phosphatase 76 U/L 45-117 Alkaline Phosph atase [facility] ([facility]) bilirubin,total 0.5 mg/dL 0.2-1.0 Bilirubin,total ATHE NA ([facility]) albumin 4.0 gm/dL 3.2-5.2 Albumin [facility] ([facility]) total protein 7.0 gm/dL 6.4-8.2 Total Protein [facility] ( [facility]) albumin/globulin ratio Albumin/globu wu Ratio [facility] ([facility]) ID Date Data Source [id number] 04/29/2020 03:56:00 PM EDT [facility] ([facility]) Name Value Range Interpretation Code Description Data Ellie rce(s) Supporting Document(s) CPK creatine phosphokinase 142 U/L 39-308 CPK Creat ine Phosphokinase [facility] ([facility]) mb/CK relative index < or =4 mb/CK Relative Index [facility] ([facility]) troponin I < 0.02 < 0.10 Troponin I [facility] ([facility]) CK-mb value mass 1.1 NG/mL <3.6 CK-mb Value Mass AT [facility] ([facility]) ID Date Data Source [id number] 04/29/2020 03:56:00 PM EDT [facility] ([facility]) Name Value Range Interpretation Code Description Data Ellie rce(s) Supporting Document(s) partial thromboplastin time 30.8 seconds 24.2-38.5 Partial Thromboplastin Time [facility] ([facility]) ID Date Data Source [id number] 04/29/2020 03:56:00 PM EDT [facility] ([facility]) Name Value Range Interpretation Code Description Data Ellie rce(s) Supporting Document(s) INR Inr [facility] ([facility]) prothrombin time 13.2 seconds 12.5-14.3 Prothrombin Time [facility] ([facility]) ID Date Data Source [id number] 04/29/2020 03:56:00 PM EDT [facility] ([facility]) Name Value Range Interpretation Code Description Data Ellie rce(s) Supporting Document(s) white blood count 6.3 10 4.0-10.0 White Blood Count [facility] ([facility]) red blood count 5.45 10 4.30-6.10 Red Blood Count ATHE NA ([facility]) hemoglobin 15.1 g/dL 13.5-17.5 Hemoglobin [facility] ([facility]) mean corpuscular volume 83.7 fL 80.0-96.0 Mean Corpusc ular Volume [facility] ([facility]) hematocrit 45.6 % 42.0-52.0 Hematocrit [facility] ([facility]) mean corpuscular HGB conc 33.1 g/dL 32.0-36.5 Mean Corpu scular HGB Conc [facility] ([facility]) mean corpuscular hemoglobin 27.7 pg 27.0-33.0 Mean Cor puscular Hemoglobin [facility]DA ([facility]) red cell distribution width 13.5 % 11.5-14.5 Red Cell Distribution Width [facility] ([facility]) neutrophils % 53.2 % 36.0-66.0 Neutrophils % [facility] ( [facility]) lymph % 33.6 % 24.0-44.0 Lymph % [facility] ([facility]) platelet count, automated 230 10 150-450 Platelet C ount, Automated [facility] ([facility]) mono % 9.6 % 2.0-8.0 Above high normal [place] % [facility] ([facility]) eos % 2.7 % 0.0-3.0 Eos % [facility] ([facility]) baso % 0.6 % 0.0-1.0 Baso % [place] ([facility]) immature granulocyte % 0.3 % 0-3.0 Immature Gran ulocyte % [facility] ([facility]) neutrophils # 3.4 10 1.5-8.5 Neutrophils # [facility] ( [facility]) nucleated red blood cell % 0.0 % 0-0 Nucleated Red Blood Cell % [facility] ([facility]) lymph # 2.1 10 1.5-5.0 Lymph # [facility] ([facility]) baso # 0.0 10 0.0-0.2 Baso # [facility] ([facility]) eos # 0.2 10 0.0-0.5 Eos # [facility] ([facility]) mono # 0.6 10 0.0-0.8 [place] # [facility] ([facility]) ID Date Data Source [id number] 04/29/2020 03:56:00 PM EDT [facility]DA ([facility]) Name Value Range Interpretation Code Description Data Ellie rce(s) Supporting Document(s) creatinine for GFR 1.12 mg/dL 0.70-1.30 Creatinine for GF R [facility] ([facility]) glucose, fasting 97 mg/dL 70-100 Glucose, Fasting AT [facility] ([facility]) blood urea nitrogen 19 mg/dL 7-18 Above high normal Blood Ure a Nitrogen [facility] ([facility]) sodium level 137 mEq/L 136-145 Sodium Level [facility] ([facility]) potassium serum 4.1 mEq/L 3.5-5.1 Potassium Serum ATHE ([facility]) glomerular filtration rate > 60.0 >60 Glomerula r Filtration Rate [facility] ([facility]) chloride level 103 mEq/L 98-107 Chloride Level [facility] ([facility]) anion gap 3 mEq/L 8-16 Below low normal Anion Gap [facility] ( [facility]) calcium level 9.3 mg/dL 8.5-10.1 Calcium Level [facility] ( [facility]) carbon dioxide level 31 mEq/L 21-32 Carbon Dioxide Level [facility] ([facility]) ID Date Data Source [id number] 04/29/2020 03:56:00 PM EDT [facility] ([facility]) Name Value Range Interpretation Code Description Data Ellie rce(s) Supporting Document(s) AST/SGOT 13 U/L 7-37 AST/SGOT [facility] ([facility]) bilirubin,total 0.5 mg/dL 0.2-1.0 Bilirubin,total ATHE NA ([facility]) alkaline phosphatase 76 U/L 45-117 Alkaline Phosph atase [facility] ([facility]) ALT/SGPT 25 U/L 12-78 ALT/SGPT [facility] ([facility]) total protein 7.0 gm/dL 6.4-8.2 Total Protein [facility] ( [facility]) bilirubin,direct 0.2 mg/dL 0.0-0.2 Bilirubin,direct AT [facility] ([facility]) albumin/globulin ratio Albumin/globu wu Ratio [facility] ([facility]) albumin 4.0 gm/dL 3.2-5.2 Albumin [facility] ([facility]) ID Date Data Source [id number] 04/29/2020 03:56:00 PM EDT [facility] ([facility]) Name Value Range Interpretation Code Description Data Ellie rce(s) Supporting Document(s) mb/CK relative index < or =4 mb/CK Relative Index [facility] ([facility]) CK-mb value mass 1.1 NG/mL <3.6 CK-mb Value Mass AT [facility] ([facility]) CPK creatine phosphokinase 142 U/L 39-308 CPK Creat ine Phosphokinase [facility] ([facility]) troponin I < 0.02 < 0.10 Troponin I [facility] ([facility]) ID Date Data Source [id number] 04/29/2020 03:56:00 PM EDT [facility] ([facility]) Name Value Range Interpretation Code Description Data Ellie rce(s) Supporting Document(s) partial thromboplastin time 30.8 seconds 24.2-38.5 Partial Thromboplastin Time [facility] ([facility]) ID Date Data Source [id number] 04/29/2020 03:56:00 PM EDT [facility] ([facility]) Name Value Range Interpretation Code Description Data Ellie rce(s) Supporting Document(s) INR Inr [facility] ([facility]) prothrombin time 13.2 seconds 12.5-14.3 Prothrombin Time [facility] ([facility]) ID Date Data Source [id number] 04/29/2020 03:56:00 PM [facility] Name Value Range Interpretation Code Description Data Ellie rce(s) Supporting Document(s) white blood count 6.3 10 4.0-10.0 White Blood Count [facility] ([facility]) hematocrit 45.6 % 42.0-52.0 Hematocrit [facility] ([facility]) hemoglobin 15.1 g/dL 13.5-17.5 Hemoglobin [facility] ([facility]) red blood count 5.45 10 4.30-6.10 Red Blood Count ATHE NA ([facility]) mean corpuscular HGB conc 33.1 g/dL 32.0-36.5 Mean Corpu scular HGB Conc [facility] ([facility]) mean corpuscular hemoglobin 27.7 pg 27.0-33.0 Mean Cor puscular Hemoglobin [facility] ([facility]) mean corpuscular volume 83.7 fL 80.0-96.0 Mean Corpusc ular Volume [facility] ([facility]) lymph % 33.6 % 24.0-44.0 Lymph % [facility] ([facility]) red cell distribution width 13.5 % 11.5-14.5 Red Cell Distribution Width [facility] ([facility]) platelet count, automated 230 10 150-450 Platelet C ount, Automated [facility] ([facility]) neutrophils % 53.2 % 36.0-66.0 Neutrophils % [facility] ( [facility]) eos % 2.7 % 0.0-3.0 Eos % [facility] ([facility]) baso % 0.6 % 0.0-1.0 Baso % [facility] ([facility]) mono % 9.6 % 2.0-8.0 Above high normal [place] % [facility] ([facility]) neutrophils # 3.4 10 1.5-8.5 Neutrophils # [facility] ( [facility]) nucleated red blood cell % 0.0 % 0-0 Nucleated Red Blood Cell % [facility] ([facility]) immature granulocyte % 0.3 % 0-3.0 Immature Gran ulocyte % [facility] ([facility]) baso # 0.0 10 0.0-0.2 Baso # [facility] ([facility]) mono # 0.6 10 0.0-0.8 [place] # [facility] ([facility]) eos # 0.2 10 0.0-0.5 Eos # [facility] ([facility]) lymph # 2.1 10 1.5-5.0 Lymph # [facility] ([facility]) ID Date Data Source [id number] 04/29/2020 03:56:00 PM EDT [facility] ([facility]) Name Value Range Interpretation Code Description Data Ellie rce(s) Supporting Document(s) glucose, fasting 97 mg/dL 70-100 Glucose, Fasting AT [facility]) glomerular filtration rate > 60.0 >60 Glomerula r Filtration Rate [facility] ([facility]) sodium level 137 mEq/L 136-145 Sodium Level [facility] ([facility]) creatinine for GFR 1.12 mg/dL 0.70-1.30 Creatinine for GF R [place] ([facility]) blood urea nitrogen 19 mg/dL 7-18 Above high normal Blood Ure a Nitrogen [facility] ([facility]) carbon dioxide level 31 mEq/L 21-32 Carbon Dioxide Level [facility] ([facility]) chloride level 103 mEq/L 98-107 Chloride Level [place] ([facility]) potassium serum 4.1 mEq/L 3.5-5.1 Potassium Serum AT[facility] NA ([facility]) anion gap 3 mEq/L 8-16 Below low normal Anion Gap [facility] ( [facility]) calcium level 9.3 mg/dL 8.5-10.1 Calcium Level [facility] ( [facility]) ID Date Data Source [id number] 04/29/2020 03:56:00 PM EDT [place] ([facility]) Name Value Range Interpretation Code Description Data Ellie rce(s) Supporting Document(s) AST/SGOT 13 U/L 7-37 AST/SGOT [facility] ([facility]) alkaline phosphatase 76 U/L 45-117 Alkaline Phosph atase [facility] ([facility]) bilirubin,direct 0.2 mg/dL 0.0-0.2 Bilirubin,direct AT [facility] ([facility]) bilirubin,total 0.5 mg/dL 0.2-1.0 Bilirubin,total ATHE NA ([facility]) ALT/SGPT 25 U/L 12-78 ALT/SGPT [facility] ([facility]) albumin 4.0 gm/dL 3.2-5.2 Albumin [facility] ([facility]) total protein 7.0 gm/dL 6.4-8.2 Total Protein [facility] ( [facility]) albumin/globulin ratio Albumin/globu wu Ratio [facility] ([facility]) ID Date Data Source [id number] 04/29/2020 03:56:00 PM EDT [facility] ([facility]) Name Value Range Interpretation Code Description Data Ellie rce(s) Supporting Document(s) CPK creatine phosphokinase 142 U/L 39-308 CPK Creat ine Phosphokinase [facility] ([facility]) mb/CK relative index < or =4 mb/CK Relative Index [facility] ([facility]) troponin I < 0.02 < 0.10 Troponin I [facility] ([facility]) CK-mb value mass 1.1 NG/mL <3.6 CK-mb Value Mass AT [facility] ([facility]) ID Date Data Source [id number] 04/29/2020 03:56:00 PM EDT [facility] ([facility]) Name Value Range Interpretation Code Description Data Ellie rce(s) Supporting Document(s) partial thromboplastin time 30.8 seconds 24.2-38.5 Partial Thromboplastin Time [facility] ([facility]) ID Date Data Source [id number] 04/29/2020 03:56:00 PM EDT [facility] ([facility]) Name Value Range Interpretation Code Description Data Ellie rce(s) Supporting Document(s) prothrombin time 13.2 seconds 12.5-14.3 Prothrombin Time [facility] ([facility]) INR Inr [facility] ([facility]) ID Date Data Source [id number] 04/29/2020 03:56:00 PM EDT [facility] ([facility]) Name Value Range Interpretation Code Description Data Ellie rce(s) Supporting Document(s) white blood count 6.3 10 4.0-10.0 White Blood Count [facility] ([facility]) red blood count 5.45 10 4.30-6.10 Red Blood Count ATHE NA ([facility]) hematocrit 45.6 % 42.0-52.0 Hematocrit [facility] ([facility]) hemoglobin 15.1 g/dL 13.5-17.5 Hemoglobin [facility] ([facility]) mean corpuscular volume 83.7 fL 80.0-96.0 Mean Corpusc ular Volume [facility] ([facility]) mean corpuscular HGB conc 33.1 g/dL 32.0-36.5 Mean Corpu scular HGB Conc [facility] ([facility]) mean corpuscular hemoglobin 27.7 pg 27.0-33.0 Mean Cor puscular Hemoglobin [facility] ([facility]) platelet count, automated 230 10 150-450 Platelet C ount, Automated [facility] ([facility]) neutrophils % 53.2 % 36.0-66.0 Neutrophils % [place] ( [facility]) red cell distribution width 13.5 % 11.5-14.5 Red Cell Distribution Width [facility] ([facility]) mono % 9.6 % 2.0-8.0 Above high normal [place] % [facility] ([facility]) eos % 2.7 % 0.0-3.0 Eos % [facility] ([facility]) lymph % 33.6 % 24.0-44.0 Lymph % [facility] ([facility]) immature granulocyte % 0.3 % 0-3.0 Immature Gran ulocyte % [facility] ([facility]) baso % 0.6 % 0.0-1.0 Baso % [facility] ([facility]) nucleated red blood cell % 0.0 % 0-0 Nucleated Red Blood Cell % [facility] ([facility]) mono # 0.6 10 0.0-0.8 [place] # [facility] ([facility]) neutrophils # 3.4 10 1.5-8.5 Neutrophils # [facility] ( [facility]) eos # 0.2 10 0.0-0.5 Eos # [facility] ([facility]) lymph # 2.1 10 1.5-5.0 Lymph # [facility] ([facility]) baso # 0.0 10 0.0-0.2 Baso # [facility] ([facility]) ID Date Data Source [id number] 04/29/2020 03:56:00 PM EDT [place] ([facility]) Name Value Range Interpretation Code Description Data Ellie rce(s) Supporting Document(s) glucose, fasting 97 mg/dL 70-100 Gl[facility] [place]) blood urea nitrogen 19 mg/dL 7-18 Above high normal Blood Ure a Nitrogen [facility] ([facility]) creatinine for GFR 1.12 mg/dL 0.70-1.30 Creatinine for GF R HILDA ([facility]) potassium serum 4.1 mEq/L 3.5-5.1 Potassium Serum ATHE ([facility]) glomerular filtration rate > 60.0 >60 [place] r Filtration Rate HILDA ([facility]) sodium level 137 mEq/L 136-145 Sodium Level HILDA ([facility]) chloride level 103 mEq/L 98-107 Chloride Level HILDA ([facility]) anion gap 3 mEq/L 8-16 Below low normal Anion Gap HILDA ( [facility]) calcium level 9.3 mg/dL 8.5-10.1 Calcium Level HILDA ( [facility]) carbon dioxide level 31 mEq/L 21-32 Carbon Dioxide Level [place] ([facility]) ID Date Data Source [id number] 04/29/2020 03:56:00 PM EDT [place] ([facility]) Name Value Range Interpretation Code Description Data Ellie rce(s) Supporting Document(s) AST/SGOT 13 U/L 7-37 AST/SGOT HILDA ([facility]) ALT/SGPT 25 U/L 12-78 ALT/SGPT [facility]DA ([facility]) bilirubin,total 0.5 mg/dL 0.2-1.0 Bilirubin,total ATHE ([facility]) bilirubin,direct 0.2 mg/dL 0.0-0.2 Bilirubin,direct AT [facility] [place]) alkaline phosphatase 76 U/L 45-117 Alkaline Phosph atase [facility]DA ([facility]) albumin 4.0 gm/dL 3.2-5.2 Albumin HILDA ([facility]) albumin/globulin ratio Albumin/globu wu Ratio HILDA ([facility]) total protein 7.0 gm/dL 6.4-8.2 Total Protein [place] ( [facility]) ID Date Data Source [id number] 04/29/2020 03:56:00 PM EDT [place] ([facility]) Name Value Range Interpretation Code Description Data Ellie rce(s) Supporting Document(s) CK-mb value mass 1.1 NG/mL <3.6 CK-mb Value Mass AT [facility] [place]) CPK creatine phosphokinase 142 U/L 39-308 CPK Creat ine Phosphokinase [facility]DA ([facility]) mb/CK relative index < or =4 mb/CK Relative Index [facility] ([facility]) troponin I < 0.02 < 0.10 Troponin I [facility] ([facility]) ID Date Data Source [id number] 04/29/2020 03:56:00 PM EDT [facility]) Name Value Range Interpretation Code Description Data Ellie rce(s) Supporting Document(s) partial thromboplastin time 30.8 seconds 24.2-38.5 [facility] ID Date Data Source [id number] 04/29/2020 03:56:00 PM EDT [facility] ([facility]) Name Value Range Interpretation Code Description Data Ellie rce(s) Supporting Document(s) prothrombin time 13.2 seconds 12.5-14.3 Prothrombin Time [facility] ([facility]) INR Inr [facility] ([facility]) ID Date Data Source [id number] 04/29/2020 03:56:00 PM EDT [facility] ([facility]) Name Value Range Interpretation Code Description Data Ellie rce(s) Supporting Document(s) white blood count 6.3 10 4.0-10.0 White Blood Count [facility] ([facility]) red blood count 5.45 10 4.30-6.10 Red Blood Count ATHE ([facility]) hemoglobin 15.1 g/dL 13.5-17.5 Hemoglobin [facility] ([facility]) hematocrit 45.6 % 42.0-52.0 Hematocrit [facility] ([facility]) mean corpuscular HGB conc 33.1 g/dL 32.0-36.5 Mean Corpu scular HGB Conc [facility] ([facility]) mean corpuscular hemoglobin 27.7 pg 27.0-33.0 Mean Cor puscular Hemoglobin [facility] ([facility]) mean corpuscular volume 83.7 fL 80.0-96.0 Mean Corpusc ular Volume [facility] ([facility]) platelet count, automated 230 10 150-450 Platelet C ount, Automated [facility] ([facility]) red cell distribution width 13.5 % 11.5-14.5 Red Cell Distribution Width [facility] ([facility]) neutrophils % 53.2 % 36.0-66.0 Neutrophils % [facility] ( [facility]) lymph % 33.6 % 24.0-44.0 Lymph % [facility] ([facility]) eos % 2.7 % 0.0-3.0 Eos % [facility] ([facility]) mono % 9.6 % 2.0-8.0 Above high normal [place] % [facility]ILDA ([facility]) baso % 0.6 % 0.0-1.0 Baso % [facility] ([facility]) nucleated red blood cell % 0.0 % 0-0 Nucleated Red Blood Cell % [facility] ([facility]) immature granulocyte % 0.3 % 0-3.0 Immature Gran ulocyte % [facility] ([facility]) mono # 0.6 10 0.0-0.8 [place] # [facility]DA ([facility]) neutrophils # 3.4 10 1.5-8.5 Neutrophils # [facility]DA ( [facility]) lymph # 2.1 10 1.5-5.0 Lymph # [facility]DA ([facility]) eos # 0.2 10 0.0-0.5 Eos # [facility] ([facility]) baso # 0.0 10 0.0-0.2 Baso # [facility] ([facility]) ID Date Data Source [id number] 04/29/2020 03:56:00 PM EDT [place] ([facility]) Name Value Range Interpretation Code Description Data Ellie rce(s) Supporting Document(s) glucose, fasting 97 mg/dL 70-100 Glucose, Fasting AT [facility] [place]) blood urea nitrogen 19 mg/dL 7-18 Above high normal Blood Ure a Nitrogen [place] ([facility]) glomerular filtration rate > 60.0 >60 Glomerula r Filtration Rate [place] ([facility]) creatinine for GFR 1.12 mg/dL 0.70-1.30 Creatinine for GF R [facility] ([facility]) sodium level 137 mEq/L 136-145 Sodium Level [facility] ([facility]) chloride level 103 mEq/L 98-107 Chloride Level [facility] ([facility]) potassium serum 4.1 mEq/L 3.5-5.1 Potassium Serum ATHE NA ([facility]) anion gap 3 mEq/L 8-16 Below low normal Anion Gap [place] ( [facility]) calcium level 9.3 mg/dL 8.5-10.1 Calcium Level [facility]DA ( [facility]) carbon dioxide level 31 mEq/L 21-32 Carbon Dioxide Level [facility] ([facility]) ID Date Data Source [id number] 04/29/2020 03:56:00 PM EDT [facility] ([facility]) Name Value Range Interpretation Code Description Data Ellie rce(s) Supporting Document(s) AST/SGOT 13 U/L 7-37 AST/SGOT [facility] ([facility]) ALT/SGPT 25 U/L 12-78 ALT/SGPT [facility] ([facility]) alkaline phosphatase 76 U/L 45-117 Alkaline Phosph atase [facility] ([facility]) bilirubin,total 0.5 mg/dL 0.2-1.0 Bilirubin,total ATHE ([facility]) bilirubin,direct 0.2 mg/dL 0.0-0.2 Bilirubin,direct AT SHANI ([facility]) albumin 4.0 gm/dL 3.2-5.2 Albumin [facility] ([facility]) total protein 7.0 gm/dL 6.4-8.2 Total Protein [facility] ( [facility]) albumin/globulin ratio Albumin/globu wu Ratio [place] ([facility]) ID Date Data Source [id number] 03/23/2020 12:00:00 AM EST [facility] Name Value Range Interpretation Code Description Data Ellie rce(s) Supporting Document(s) SARS-CoV2 Rapid Antigen Negative [facility] and reported by [facility]. ID Date Data Source [id number] 01/09/2020 03:51:00 PM EST [facility] ([facility]) Name Value Range Interpretation Code Description Data Ellie rce(s) Supporting Document(s) C reactive protein quantitativ < 0.30 0.00-0.30 C Reactive Protein Quantitativ [place] ([facility]) ID Date Data Source [id number] 01/09/2020 03:51:00 PM EST [facility] ([facility]) Name Value Range Interpretation Code Description Data Ellie rce(s) Supporting Document(s) cholesterol level 278 mg/dL <200 Above high normal Cholesterol Level H[facility] ([facility]) triglycerides level 314 mg/dL <150 Above high normal Triglycer ides Level [facility]DA ([facility]) cholesterol risk ratio <5 Above high normal Choles terol Risk Ratio [facility] ([facility]) non-HDL-C 240 mg/dL Non-hdl-c [facility] ([facility]) Cholesterol in LDL [Mass/volume] in Serum or Plasma 177 mg/dL <100 Above high normal LDL Cholesterol [facility] ([facility]) HDL cholesterol 38 mg/dL >40 Below low normal HDL Cholestero l [facility] ([facility]) ID Date Data Source [id number] 01/09/2020 03:51:00 PM EST [facility] ([facility]) Name Value Range Interpretation Code Description Data Ellie rce(s) Supporting Document(s) C reactive protein quantitativ < 0.30 0.00-0.30 C Reactive Protein Quantitativ [facility] ([facility]) ID Date Data Source [id number] 01/09/2020 03:51:00 PM EST [facility] ([facility]) Name Value Range Interpretation Code Description Data Ellie rce(s) Supporting Document(s) cholesterol level 278 mg/dL <200 Above high normal Cholesterol Level [facility] ([facility]) triglycerides level 314 mg/dL <150 Above high normal Triglycer ides Level [facility]DA ([facility]) non-HDL-C 240 mg/dL Non-hdl-c [facility] ([facility]) cholesterol risk ratio <5 Above high normal Choles terol Risk Ratio [facility] ([facility]) HDL cholesterol 38 mg/dL >40 Below low normal HDL Cholestero l [facility] ([facility]) Cholesterol in LDL [Mass/volume] in Serum or Plasma 177 mg/dL <100 Above high normal LDL Cholesterol [facility] ([facility]) ID Date Data Source [id number] 01/09/2020 03:51:00 PM EST [facility] ([facility]) Name Value Range Interpretation Code Description Data Ellie rce(s) Supporting Document(s) C reactive protein quantitativ < 0.30 0.00-0.30 C Reactive Protein Quantitativ [facility] ([facility]) ID Date Data Source [id number] 01/09/2020 03:51:00 PM EST [facility] ([facility]) Name Value Range Interpretation Code Description Data Ellie rce(s) Supporting Document(s) cholesterol level 278 mg/dL <200 Above high normal Cholesterol Level [facility] ([facility]) triglycerides level 314 mg/dL <150 Above high normal Triglycer ides Level [facility] ([facility]) HDL cholesterol 38 mg/dL >40 Below low normal HDL Cholestero l [facility] ([facility]) Cholesterol in LDL [Mass/volume] in Serum or Plasma 177 mg/dL <100 Above high normal LDL Cholesterol [facility] ([facility]) cholesterol risk ratio <5 Above high normal Choles terol Risk Ratio [facility] ([facility]) non-HDL-C 240 mg/dL Non-hdl-c [facility] ([facility]) ID Date Data Source [id number] 01/09/2020 03:51:00 PM EST [facility] ([facility]) Name Value Range Interpretation Code Description Data Ellie rce(s) Supporting Document(s) C reactive protein quantitativ < 0.30 0.00-0.30 C Reactive Protein Quantitativ [facility] ([facility]) ID Date Data Source [id number] 01/09/2020 03:51:00 PM EST [facility] ([facility]) Name Value Range Interpretation Code Description Data Ellie rce(s) Supporting Document(s) HDL cholesterol 38 mg/dL >40 Below low normal HDL Cholestero l H[facility]DA ([facility]) triglycerides level 314 mg/dL <150 Above high normal Triglycer ides Level [facility]DA ([facility]) cholesterol level 278 mg/dL <200 Above high normal Cholesterol Level [facility] ([facility]) non-HDL-C 240 mg/dL Non-hdl-c [facility] ([facility]) cholesterol risk ratio <5 Above high normal Choles terol Risk Ratio H[facility]DA ([facility]) Cholesterol in LDL [Mass/volume] in Serum or Plasma 177 mg/dL <100 Above high normal LDL Cholesterol [facility]DA ([facility]) ID Date Data Source [id number] 01/09/2020 03:51:00 PM EST [facility] ([facility]) Name Value Range Interpretation Code Description Data Ellie rce(s) Supporting Document(s) C reactive protein quantitativ < 0.30 0.00-0.30 C Reactive Protein Quantitativ [facility] ([facility]) ID Date Data Source [id number] 01/09/2020 03:51:00 PM EST [facility] ([facility]) Name Value Range Interpretation Code Description Data Ellie rce(s) Supporting Document(s) triglycerides level 314 mg/dL <150 Above high normal Triglycer ides Level H[facility]DA ([facility]) cholesterol level 278 mg/dL <200 Above high normal Cholesterol Level [facility] ([facility]) HDL cholesterol 38 mg/dL >40 Below low normal HDL Cholestero l [facility] ([facility]) non-HDL-C 240 mg/dL Non-hdl-c [facility] ([facility]) Cholesterol in LDL [Mass/volume] in Serum or Plasma 177 mg/dL <100 Above high normal LDL Cholesterol [facility] ([facility]) cholesterol risk ratio <5 Above high normal Choles terol Risk Ratio [facility] ([facility]) ID Date Data Source [id number] 01/09/2020 03:51:00 PM EST [facility] ([facility]) Name Value Range Interpretation Code Description Data Ellie rce(s) Supporting Document(s) C reactive protein quantitativ < 0.30 0.00-0.30 C Reactive Protein Quantitativ [facility]DA ([facility]) ID Date Data Source [id number] 01/09/2020 03:51:00 PM EST [facility] ([facility]) Name Value Range Interpretation Code Description Data Ellie rce(s) Supporting Document(s) triglycerides level 314 mg/dL <150 Above high normal Triglycer ides Level H[facility]DA ([facility]) cholesterol level 278 mg/dL <200 Above high normal Cholesterol Level H[facility]DA ([facility]) HDL cholesterol 38 mg/dL >40 Below low normal HDL Cholestero l [facility] ([facility]) non-HDL-C 240 mg/dL Non-hdl-c [facility] ([facility]) Cholesterol in LDL [Mass/volume] in Serum or Plasma 177 mg/dL <100 Above high normal LDL Cholesterol [facility] ([facility]) cholesterol risk ratio <5 Above high normal Choles terol Risk Ratio [facility]) ID Date Data Source [id number] 01/09/2020 03:51:00 PM EST [facility] ([facility]) Name Value Range Interpretation Code Description Data Ellie rce(s) Supporting Document(s) C reactive protein quantitativ < 0.30 0.00-0.30 C Reactive Protein Quantitativ [facility] ([facility]) ID Date Data Source [id number] 01/09/2020 03:51:00 PM EST [facility] ([facility]) Name Value Range Interpretation Code Description Data Ellie rce(s) Supporting Document(s) cholesterol level 278 mg/dL <200 Above high normal Cholesterol Level [facility] ([facility]) triglycerides level 314 mg/dL <150 Above high normal Triglycer ides Level [facility] ([facility]) HDL cholesterol 38 mg/dL >40 Below low normal HDL Cholestero l [facility] ([facility]) Cholesterol in LDL [Mass/volume] in Serum or Plasma 177 mg/dL <100 Above high normal LDL Cholesterol [facility] ([facility]) non-HDL-C 240 mg/dL Non-hdl-c [facility] ([facility]) cholesterol risk ratio <5 Above high normal Choles terol Risk Ratio [facility] ([facility]) ID Date Data Source [id number] 01/09/2020 03:51:00 PM EST [facility] ([facility]) Name Value Range Interpretation Code Description Data Ellie rce(s) Supporting Document(s) C reactive protein quantitativ < 0.30 0.00-0.30 C Reactive Protein Quantitativ [facility] ([facility]) ID Date Data Source [id number] 01/09/2020 03:51:00 PM EST [facility] ([facility]) Name Value Range Interpretation Code Description Data Ellie rce(s) Supporting Document(s) triglycerides level 314 mg/dL <150 Above high normal Triglycer ides Level [facility] ([facility]) cholesterol level 278 mg/dL <200 Above high normal Cholesterol Level [facility] ([facility]) HDL cholesterol 38 mg/dL >40 Below low normal HDL Cholestero l [facility]DA ([facility]) Cholesterol in LDL [Mass/volume] in Serum or Plasma 177 mg/dL <100 Above high normal LDL Cholesterol [facility] ([facility]) cholesterol risk ratio <5 Above high normal Choles terol Risk Ratio [facility] ([facility]) non-HDL-C 240 mg/dL Non-hdl-c [facility] ([facility]) ID Date Data Source [id number] 01/09/2020 03:51:00 PM EST [facility] ([facility]) Name Value Range Interpretation Code Description Data Ellie rce(s) Supporting Document(s) C reactive protein quantitativ < 0.30 0.00-0.30 C Reactive Protein Quantitativ [facility] ([facility]) ID Date Data Source [id number] 01/09/2020 03:51:00 PM EST [facility] ([facility]) Name Value Range Interpretation Code Description Data Ellie rce(s) Supporting Document(s) cholesterol level 278 mg/dL <200 Above high normal Cholesterol Level HILDA ([facility]) triglycerides level 314 mg/dL <150 Above high normal Triglycer ides Level HILDA ([facility]) HDL cholesterol 38 mg/dL >40 Below low normal HDL Cholestero l HILDA ([facility]) Cholesterol in LDL [Mass/volume] in Serum or Plasma 177 mg/dL <100 Above high normal LDL Cholesterol [facility]DA ([facility]) cholesterol risk ratio <5 Above high normal Choles terol Risk Ratio [facility] ([facility]) non-HDL-C 240 mg/dL Non-hdl-c [facility]DA ([facility]) ID Date Data Source [id number] 01/09/2020 03:51:00 PM EST [facility] ([facility]) Name Value Range Interpretation Code Description Data Ellie rce(s) Supporting Document(s) C reactive protein quantitativ < 0.30 0.00-0.30 C Reactive Protein Quantitativ [facility]DA ([facility]) ID Date Data Source [id number] 01/09/2020 03:51:00 PM EST [facility] ([facility]) Name Value Range Interpretation Code Description Data Ellie rce(s) Supporting Document(s) cholesterol level 278 mg/dL <200 Above high normal Cholesterol Level HILDA ([facility]) Cholesterol in LDL [Mass/volume] in Serum or Plasma 177 mg/dL <100 Above high normal LDL Cholesterol [facility] ([facility]) HDL cholesterol 38 mg/dL >40 Below low normal HDL Cholestero l HILDA ([facility]) triglycerides level 314 mg/dL <150 Above high normal Triglycer ides Level [facility]DA ([facility]) non-HDL-C 240 mg/dL Non-hdl-c H[facility]DA ([facility]) cholesterol risk ratio <5 Above high normal Choles terol Risk Ratio [facility]DA ([facility]) ID Date Data Source [id number] 01/09/2020 03:51:00 PM EST [facility] ([facility]) Name Value Range Interpretation Code Description Data Ellie rce(s) Supporting Document(s) C reactive protein quantitativ < 0.30 0.00-0.30 C Reactive Protein Quantitativ [facility]ILDA ([facility]) ID Date Data Source [id number] 01/09/2020 03:51:00 PM EST [facility] ([facility]) Name Value Range Interpretation Code Description Data Ellie rce(s) Supporting Document(s) HDL cholesterol 38 mg/dL >40 Below low normal HDL Cholestero l HILDA ([facility]) triglycerides level 314 mg/dL <150 Above high normal Triglycer ides Level H[facility]DA ([facility]) cholesterol level 278 mg/dL <200 Above high normal Cholesterol Level [facility]DA ([facility]) Cholesterol in LDL [Mass/volume] in Serum or Plasma 177 mg/dL <100 Above high normal LDL Cholesterol [facility] ([facility]) non-HDL-C 240 mg/dL Non-hdl-c H[facility]DA ([facility]) cholesterol risk ratio <5 Above high normal Choles terol Risk Ratio [facility] ([facility]) ID Date Data Source [id number] 01/09/2020 03:51:00 PM EST [facility] ([facility]) Name Value Range Interpretation Code Description Data Ellie rce(s) Supporting Document(s) C reactive protein quantitativ < 0.30 0.00-0.30 C Reactive Protein Quantitativ [facility]DA ([facility]) ID Date Data Source [id number] 01/09/2020 03:51:00 PM EST [facility] ([facility]) Name Value Range Interpretation Code Description Data Ellie rce(s) Supporting Document(s) triglycerides level 314 mg/dL <150 Above high normal Triglycer ides Level HILDA ([facility]) HDL cholesterol 38 mg/dL >40 Below low normal HDL Cholestero l HILDA ([facility]) cholesterol level 278 mg/dL <200 Above high normal Cholesterol Level H[facility]DA ([facility]) Cholesterol in LDL [Mass/volume] in Serum or Plasma 177 mg/dL <100 Above high normal LDL Cholesterol [facility] ([facility]) non-HDL-C 240 mg/dL Non-hdl-c H[facility]DA ([facility]) cholesterol risk ratio <5 Above high normal Choles terol Risk Ratio [facility]DA ([facility]) ID Date Data Source [id number] 01/09/2020 03:51:00 PM EST [facility] ([facility]) Name Value Range Interpretation Code Description Data Ellie rce(s) Supporting Document(s) C reactive protein [Mass/volume] in Serum or Plasma by High sensitivity method Laboratory test result 0.00-0.30 [facility] ([facility]) ID Date Data Source [id number] 01/09/2020 03:51:00 PM EST [facility] ([facility]) Name Value Range Interpretation Code Description Data Ellie rce(s) Supporting Document(s) Triglycerides Level 314 mg/dL [facility] ([facility]) HDL Cholesterol 38 mg/dL [facility] ([facility]) Cholesterol Level 278 mg/dL [facility] ([facility]) Cholesterol Risk Ratio 7.315 [facility] ([facility]) LDL Cholesterol 177 mg/dL [facility] ([facility]) Non-HDL-C 240 mg/dL [facility] ([facility] ID Date Data Source [id number] 01/09/2020 03:51:00 PM EST [facility] ([facility]) Name Value Range Interpretation Code Description Data Ellie rce(s) Supporting Document(s) C reactive protein quantitativ < 0.30 0.00-0.30 C Reactive Protein Quantitativ [facility]DA ([facility]) ID Date Data Source [id number] 01/09/2020 03:51:00 PM [facility] Name Value Range Interpretation Code Description Data Ellie rce(s) Supporting Document(s) triglycerides level 314 mg/dL <150 Above high normal Triglycer ides Level HIDLA ([facility]) cholesterol level 278 mg/dL <200 Above high normal Cholesterol Level HILDA ([facility]) HDL cholesterol 38 mg/dL >40 Below low normal HDL Cholestero l H[facility]DA ([facility]) non-HDL-C 240 mg/dL Non-hdl-c [facility]DA ([facility]) Cholesterol in LDL [Mass/volume] in Serum or Plasma 177 mg/dL <100 Above high normal LDL Cholesterol [facility] ([facility]) cholesterol risk ratio <5 Above high normal Choles terol Risk Ratio [facility]DA ([facility]) ID Date Data Source [id number] 01/09/2020 03:51:00 PM EST [facility] ([facility]) Name Value Range Interpretation Code Description Data Ellie rce(s) Supporting Document(s) C reactive protein quantitativ < 0.30 0.00-0.30 C Reactive Protein Quantitativ [facility]DA ([facility]) ID Date Data Source [id number] 01/09/2020 03:51:00 PM EST [facility] ([facility]) Name Value Range Interpretation Code Description Data Ellie rce(s) Supporting Document(s) cholesterol level 278 mg/dL <200 Above high normal Cholesterol Level HILDA ([facility]) triglycerides level 314 mg/dL <150 Above high normal Triglycer ides Level HILDA ([facility]) non-HDL-C 240 mg/dL Non-hdl-c HIL[facility] ([facility]) Cholesterol in LDL [Mass/volume] in Serum or Plasma 177 mg/dL <100 Above high normal LDL Cholesterol H[facility] ([facility]) HDL cholesterol 38 mg/dL >40 Below low normal HDL Cholestero l HILDA ([facility]) cholesterol risk ratio <5 Above high normal Choles terol Risk Ratio HILDA ([facility]) ID Date Data Source [id number] 01/09/2020 03:51:00 PM EST HILDA ([facility]) Name Value Range Interpretation Code Description Data Ellie rce(s) Supporting Document(s) C reactive protein quantitativ < 0.30 0.00-0.30 C Reactive Protein Quantitativ HILDA ([facility]) ID Date Data Source [id number] 01/09/2020 03:51:00 PM EST HILDA ([facility]) Name Value Range Interpretation Code Description Data Ellie rce(s) Supporting Document(s) triglycerides level 314 mg/dL <150 Above high normal Triglycer ides Level HILDA ([facility]) cholesterol level 278 mg/dL <200 Above high normal Cholesterol Level HILDA ([facility]) HDL cholesterol 38 mg/dL >40 Below low normal HDL Cholestero l HILDA ([facility]) cholesterol risk ratio <5 Above high normal Choles terol Risk Ratio HILDA ([facility]) Cholesterol in LDL [Mass/volume] in Serum or Plasma 177 mg/dL <100 Above high normal LDL Cholesterol H[facility] ([facility]) non-HDL-C 240 mg/dL Non-hdl-c HILDA ([facility]) ID Date Data Source [id number] 01/09/2020 03:51:00 PM EST HILDA ([facility]) Name Value Range Interpretation Code Description Data Ellie rce(s) Supporting Document(s) C reactive protein quantitativ < 0.30 0.00-0.30 C Reactive Protein Quantitativ HILDA ([facility]) ID Date Data Source [id number] 01/09/2020 03:51:00 PM EST HILDA ([facility]) Name Value Range Interpretation Code Description Data Ellie rce(s) Supporting Document(s) triglycerides level 314 mg/dL <150 Above high normal Triglycer ides Level HILDA ([facility]) cholesterol level 278 mg/dL <200 Above high normal Cholesterol Level HILDA ([facility]) non-HDL-C 240 mg/dL Non-hdl-c HIL[facility] ([facility]) HDL cholesterol 38 mg/dL >40 Below low normal HDL Cholestero l HILDA ([facility]) Cholesterol in LDL [Mass/volume] in Serum or Plasma 177 mg/dL <100 Above high normal LDL Cholesterol HILDA ([facility]) cholesterol risk ratio <5 Above high normal Choles terol Risk Ratio HILDA ([facility]) ID Date Data Source [id number] 01/09/2020 03:51:00 PM EST HILDA ([facility]) Name Value Range Interpretation Code Description Data Ellie rce(s) Supporting Document(s) C reactive protein quantitativ < 0.30 0.00-0.30 C Reactive Protein Quantitativ HILDA ([facility]) ID Date Data Source [id number] 01/09/2020 03:51:00 PM EST HILDA ([facility]) Name Value Range Interpretation Code Description Data Ellie rce(s) Supporting Document(s) cholesterol level 278 mg/dL <200 Above high normal Cholesterol Level HILDA ([facility]) triglycerides level 314 mg/dL <150 Above high normal Triglycer ides Level HILDA ([facility]) Cholesterol in LDL [Mass/volume] in Serum or Plasma 177 mg/dL <100 Above high normal LDL Cholesterol H[facility] ([facility]) cholesterol risk ratio <5 Above high normal Choles terol Risk Ratio HILDA ([facility]) HDL cholesterol 38 mg/dL >40 Below low normal HDL Cholestero l HILDA ([facility]) non-HDL-C 240 mg/dL Non-hdl-c H[facility] ([facility]) ID Date Data Source [id number] 01/09/2020 03:51:00 PM EST HILDA ([facility]) Name Value Range Interpretation Code Description Data Ellie rce(s) Supporting Document(s) C reactive protein quantitativ < 0.30 0.00-0.30 C Reactive Protein Quantitativ HILDA ([facility]) ID Date Data Source [id number] 01/09/2020 03:51:00 PM EST HILDA ([facility]) Name Value Range Interpretation Code Description Data Ellie rce(s) Supporting Document(s) cholesterol level 278 mg/dL <200 Above high normal Cholesterol Level HILDA ([facility]) HDL cholesterol 38 mg/dL >40 Below low normal HDL Cholestero l HILDA ([facility]) triglycerides level 314 mg/dL <150 Above high normal Triglycer ides Level HILDA ([facility]) non-HDL-C 240 mg/dL Non-hdl-c HILDA ([facility]) cholesterol risk ratio <5 Above high normal Choles terol Risk Ratio HILDA ([facility]) Cholesterol in LDL [Mass/volume] in Serum or Plasma 177 mg/dL <100 Above high normal LDL Cholesterol HILDA ([facility]) ID Date Data Source [id number] 01/09/2020 03:51:00 PM EST HILDA ([facility]) Name Value Range Interpretation Code Description Data Ellie rce(s) Supporting Document(s) C reactive protein quantitativ < 0.30 0.00-0.30 C Reactive Protein Quantitativ HILDA ([facility]) ID Date Data Source [id number] 01/09/2020 03:51:00 PM EST HILDA ([facility]) Name Value Range Interpretation Code Description Data Ellie rce(s) Supporting Document(s) triglycerides level 314 mg/dL <150 Above high normal Triglycer ides Level HILDA ([facility]) cholesterol level 278 mg/dL <200 Above high normal Cholesterol Level HILDA ([facility]) Cholesterol in LDL [Mass/volume] in Serum or Plasma 177 mg/dL <100 Above high normal LDL Cholesterol HILDA ([facility]) non-HDL-C 240 mg/dL Non-hdl-c HILDA ([facility]) HDL cholesterol 38 mg/dL >40 Below low normal HDL Cholestero l HILDA ([facility]) cholesterol risk ratio <5 Above high normal Choles terol Risk Ratio HILDA ([facility]) ID Date Data Source [id number] 01/09/2020 03:51:00 PM EST HILDA ([facility]) Name Value Range Interpretation Code Description Data Ellie rce(s) Supporting Document(s) C reactive protein quantitativ < 0.30 0.00-0.30 C Reactive Protein Quantitativ HILDA ([facility]) ID Date Data Source [id number] 01/09/2020 03:51:00 PM EST HILDA ([facility]) Name Value Range Interpretation Code Description Data Ellie rce(s) Supporting Document(s) triglycerides level 314 mg/dL <150 Above high normal Triglycer ides Level HILDA ([facility]) HDL cholesterol 38 mg/dL >40 Below low normal HDL Cholestero l HILDA ([facility]) non-HDL-C 240 mg/dL Non-hdl-c HILDA ([facility]) Cholesterol in LDL [Mass/volume] in Serum or Plasma 177 mg/dL <100 Above high normal LDL Cholesterol HIL[facility] ([facility]) cholesterol level 278 mg/dL <200 Above high normal Cholesterol Level HILDA ([facility]) cholesterol risk ratio <5 Above high normal Choles terol Risk Ratio HILDA ([facility]) ID Date Data Source [id number] 01/09/2020 03:51:00 PM EST HILDA ([facility]) Name Value Range Interpretation Code Description Data Ellie rce(s) Supporting Document(s) C reactive protein quantitativ < 0.30 0.00-0.30 C Reactive Protein Quantitativ HILDA ([facility]) ID Date Data Source [id number] 01/09/2020 03:51:00 PM EST HILDA ([facility]) Name Value Range Interpretation Code Description Data Ellie rce(s) Supporting Document(s) triglycerides level 314 mg/dL <150 Above high normal Triglycer ides Level HILDA ([facility]) HDL cholesterol 38 mg/dL >40 Below low normal HDL Cholestero l HILDA ([facility]) Cholesterol in LDL [Mass/volume] in Serum or Plasma 177 mg/dL <100 Above high normal LDL Cholesterol HILDA ([facility]) cholesterol level 278 mg/dL <200 Above high normal Cholesterol Level HILDA ([facility]) non-HDL-C 240 mg/dL Non-hdl-c HILDA ([facility]) cholesterol risk ratio <5 Above high normal Choles terol Risk Ratio HILDA ([facility]) ID Date Data Source [id number] 01/09/2020 03:51:00 PM EST HILDA ([facility]) Name Value Range Interpretation Code Description Data Ellie rce(s) Supporting Document(s) C reactive protein quantitativ < 0.30 0.00-0.30 C Reactive Protein Quantitativ HILDA ([facility]) ID Date Data Source [id number] 01/09/2020 03:51:00 PM EST HILDA ([facility]) Name Value Range Interpretation Code Description Data Ellie rce(s) Supporting Document(s) cholesterol level 278 mg/dL <200 Above high normal Cholesterol Level HILDA ([facility]) triglycerides level 314 mg/dL <150 Above high normal Triglycer ides Level HILDA ([facility]) Cholesterol in LDL [Mass/volume] in Serum or Plasma 177 mg/dL <100 Above high normal LDL Cholesterol HILDA ([facility]) non-HDL-C 240 mg/dL Non-hdl-c HILDA ([facility]) cholesterol risk ratio <5 Above high normal Choles terol Risk Ratio HILDA ([facility]) HDL cholesterol 38 mg/dL >40 Below low normal HDL Cholestero l HILDA ([facility]) ID Date Data Source [id number] 01/09/2020 03:51:00 PM EST HILDA ([facility]) Name Value Range Interpretation Code Description Data Ellie rce(s) Supporting Document(s) C reactive protein quantitativ < 0.30 0.00-0.30 C Reactive Protein Quantitativ HILDA ([facility]) ID Date Data Source [id number] 01/09/2020 03:51:00 PM EST HILDA ([facility]) Name Value Range Interpretation Code Description Data Ellie rce(s) Supporting Document(s) triglycerides level 314 mg/dL <150 Above high normal Triglycer ides Level HILDA ([facility]) Cholesterol in LDL [Mass/volume] in Serum or Plasma 177 mg/dL <100 Above high normal LDL Cholesterol HILDA ([facility]) HDL cholesterol 38 mg/dL >40 Below low normal HDL Cholestero l HILDA ([facility]) non-HDL-C 240 mg/dL Non-hdl-c HILDA ([facility]) cholesterol level 278 mg/dL <200 Above high normal Cholesterol Level HILDA ([facility]) cholesterol risk ratio <5 Above high normal Choles terol Risk Ratio HILDA ([facility]) ID Date Data Source [id number] 01/09/2020 03:51:00 PM EST HILDA ([facility]) Name Value Range Interpretation Code Description Data Ellie rce(s) Supporting Document(s) C reactive protein quantitativ < 0.30 0.00-0.30 C Reactive Protein Quantitativ HILDA ([facility]) ID Date Data Source [id number] 01/09/2020 03:51:00 PM EST HILDA ([facility]) Name Value Range Interpretation Code Description Data Ellie rce(s) Supporting Document(s) HDL cholesterol 38 mg/dL >40 Below low normal HDL Cholestero l HILDA ([facility]) cholesterol level 278 mg/dL <200 Above high normal Cholesterol Level HILDA ([facility]) triglycerides level 314 mg/dL <150 Above high normal Triglycer ides Level HILDA ([facility]) cholesterol risk ratio <5 Above high normal Choles terol Risk Ratio HILDA ([facility]) Cholesterol in LDL [Mass/volume] in Serum or Plasma 177 mg/dL <100 Above high normal LDL Cholesterol [facility]ILDA ([facility]) non-HDL-C 240 mg/dL Non-hdl-c HILDA ([facility]) ID Date Data Source [id number] 01/09/2020 03:51:00 PM EST HILDA ([facility]) Name Value Range Interpretation Code Description Data Ellie rce(s) Supporting Document(s) C reactive protein quantitativ < 0.30 0.00-0.30 C Reactive Protein Quantitativ HILDA ([facility]) ID Date Data Source [id number] 01/09/2020 03:51:00 PM EST HILDA ([facility]) Name Value Range Interpretation Code Description Data Ellie rce(s) Supporting Document(s) cholesterol level 278 mg/dL <200 Above high normal Cholesterol Level HILDA ([facility]) triglycerides level 314 mg/dL <150 Above high normal Triglycer ides Level HILDA ([facility]) Cholesterol in LDL [Mass/volume] in Serum or Plasma 177 mg/dL <100 Above high normal LDL Cholesterol HILDA ([facility]) non-HDL-C 240 mg/dL Non-hdl-c HILDA ([facility]) cholesterol risk ratio <5 Above high normal Choles terol Risk Ratio HIDLA ([facility]) HDL cholesterol 38 mg/dL >40 Below low normal HDL Cholestero l HILDA ([facility]) ID Date Data Source [id number] 01/09/2020 03:51:00 PM EST HILDA ([facility]) Name Value Range Interpretation Code Description Data Ellie rce(s) Supporting Document(s) C reactive protein quantitativ < 0.30 0.00-0.30 C Reactive Protein Quantitativ HILDA ([facility]) ID Date Data Source [id number] 01/09/2020 03:51:00 PM EST HILDA ([facility]) Name Value Range Interpretation Code Description Data Ellie rce(s) Supporting Document(s) triglycerides level 314 mg/dL <150 Above high normal Triglycer ides Level HILDA ([facility]) cholesterol level 278 mg/dL <200 Above high normal Cholesterol Level HILDA ([facility]) HDL cholesterol 38 mg/dL >40 Below low normal HDL Cholestero l HILDA ([facility]) non-HDL-C 240 mg/dL Non-hdl-c HILDA ([facility]) Cholesterol in LDL [Mass/volume] in Serum or Plasma 177 mg/dL <100 Above high normal LDL Cholesterol HILDA ([facility]) cholesterol risk ratio <5 Above high normal Choles terol Risk Ratio HILDA ([facility]) ID Date Data Source [id number] 01/09/2020 03:51:00 PM EST HILDA ([facility]) Name Value Range Interpretation Code Description Data Ellie rce(s) Supporting Document(s) C reactive protein quantitativ < 0.30 0.00-0.30 C Reactive Protein Quantitativ HILDA ([facility]) ID Date Data Source [id number] 01/09/2020 03:51:00 PM EST HILDA ([facility]) Name Value Range Interpretation Code Description Data Ellie rce(s) Supporting Document(s) triglycerides level 314 mg/dL <150 Above high normal Triglycer ides Level HILDA ([facility]) HDL cholesterol 38 mg/dL >40 Below low normal HDL Cholestero l HILDA ([facility]) cholesterol level 278 mg/dL <200 Above high normal Cholesterol Level HILDA ([facility]) cholesterol risk ratio <5 Above high normal Choles terol Risk Ratio HILDA ([facility]) non-HDL-C 240 mg/dL Non-hdl-c HILDA ([facility]) Cholesterol in LDL [Mass/volume] in Serum or Plasma 177 mg/dL <100 Above high normal LDL Cholesterol [facility]ILDA ([facility]) ID Date Data Source [id number] 01/09/2020 03:51:00 PM EST HILDA ([facility]) Name Value Range Interpretation Code Description Data Ellie rce(s) Supporting Document(s) C reactive protein quantitativ < 0.30 0.00-0.30 C Reactive Protein Quantitativ HILDA ([facility]) ID Date Data Source [id number] 01/09/2020 03:51:00 PM EST HILDA ([facility]) Name Value Range Interpretation Code Description Data Ellie rce(s) Supporting Document(s) cholesterol level 278 mg/dL <200 Above high normal Cholesterol Level HILDA ([facility]) triglycerides level 314 mg/dL <150 Above high normal Triglycer ides Level HILDA ([facility]) cholesterol risk ratio <5 Above high normal Choles terol Risk Ratio HILDA ([facility]) non-HDL-C 240 mg/dL Non-hdl-c HILDA ([facility]) HDL cholesterol 38 mg/dL >40 Below low normal HDL Cholestero l HILDA ([facility]) Cholesterol in LDL [Mass/volume] in Serum or Plasma 177 mg/dL <100 Above high normal LDL Cholesterol [facility] ([facility]) ID Date Data Source [id number] 01/09/2020 03:51:00 PM EST HILDA ([facility]) Name Value Range Interpretation Code Description Data Ellie rce(s) Supporting Document(s) C reactive protein quantitativ < 0.30 0.00-0.30 C Reactive Protein Quantitativ HILDA ([facility]) ID Date Data Source [id number] 01/09/2020 03:51:00 PM EST HILDA ([facility]) Name Value Range Interpretation Code Description Data Ellie rce(s) Supporting Document(s) HDL cholesterol 38 mg/dL >40 Below low normal HDL Cholestero l HILDA ([facility]) triglycerides level 314 mg/dL <150 Above high normal Triglycer ides Level HILDA ([facility]) cholesterol level 278 mg/dL <200 Above high normal Cholesterol Level HILDA ([facility]) non-HDL-C 240 mg/dL Non-hdl-c H[facility]DA ([facility]) cholesterol risk ratio <5 Above high normal Choles terol Risk Ratio HILDA ([facility]) Cholesterol in LDL [Mass/volume] in Serum or Plasma 177 mg/dL <100 Above high normal LDL Cholesterol [facility]DA ([facility]) ID Date Data Source [id number] 01/09/2020 03:51:00 PM EST HILDA ([facility]) Name Value Range Interpretation Code Description Data Ellie rce(s) Supporting Document(s) C reactive protein quantitativ < 0.30 0.00-0.30 C Reactive Protein Quantitativ HILDA ([facility]) ID Date Data Source [id number] 01/09/2020 03:51:00 PM EST HILDA ([facility]) Name Value Range Interpretation Code Description Data Ellie rce(s) Supporting Document(s) triglycerides level 314 mg/dL <150 Above high normal Triglycer ides Level HILDA ([facility]) cholesterol risk ratio <5 Above high normal Choles terol Risk Ratio HILDA ([facility]) Cholesterol in LDL [Mass/volume] in Serum or Plasma 177 mg/dL <100 Above high normal LDL Cholesterol HILDA ([facility]) HDL cholesterol 38 mg/dL >40 Below low normal HDL Cholestero l HILDA ([facility]) cholesterol level 278 mg/dL <200 Above high normal Cholesterol Level HILDA ([facility]) non-HDL-C 240 mg/dL Non-hdl-c HILDA ([facility]) ID Date Data Source [id number] 01/09/2020 03:51:00 PM EST HILDA ([facility]) Name Value Range Interpretation Code Description Data Ellie rce(s) Supporting Document(s) C reactive protein quantitativ < 0.30 0.00-0.30 C Reactive Protein Quantitativ HILDA ([facility]) ID Date Data Source [id number] 01/09/2020 03:51:00 PM EST HILDA ([facility]) Name Value Range Interpretation Code Description Data Ellie rce(s) Supporting Document(s) cholesterol level 278 mg/dL <200 Above high normal Cholesterol Level HILDA ([facility]) triglycerides level 314 mg/dL <150 Above high normal Triglycer ides Level HILDA ([facility]) non-HDL-C 240 mg/dL Non-hdl-c HILDA ([facility]) Cholesterol in LDL [Mass/volume] in Serum or Plasma 177 mg/dL <100 Above high normal LDL Cholesterol HILDA ([facility]) cholesterol risk ratio <5 Above high normal Choles terol Risk Ratio HLIDA ([facility]) HDL cholesterol 38 mg/dL >40 Below low normal HDL Cholestero l HILDA ([facility]) ID Date Data Source [id number] 01/09/2020 03:51:00 PM EST HILDA ([facility]) Name Value Range Interpretation Code Description Data Ellie rce(s) Supporting Document(s) C reactive protein quantitativ < 0.30 0.00-0.30 C Reactive Protein Quantitativ HILDA ([facility]) ID Date Data Source [id number] 01/09/2020 03:51:00 PM EST HILDA ([facility]) Name Value Range Interpretation Code Description Data Ellie rce(s) Supporting Document(s) cholesterol level 278 mg/dL <200 Above high normal Cholesterol Level HILDA ([facility]) HDL cholesterol 38 mg/dL >40 Below low normal HDL Cholestero l HILDA ([facility]) triglycerides level 314 mg/dL <150 Above high normal Triglycer ides Level HILDA ([facility]) Cholesterol in LDL [Mass/volume] in Serum or Plasma 177 mg/dL <100 Above high normal LDL Cholesterol [facility]DA ([facility]) cholesterol risk ratio <5 Above high normal Choles terol Risk Ratio HILDA ([facility]) non-HDL-C 240 mg/dL Non-hdl-c HILDA ([facility]) ID Date Data Source [id number] 01/09/2020 03:51:00 PM EST HILDA ([facility]) Name Value Range Interpretation Code Description Data Ellie rce(s) Supporting Document(s) C reactive protein quantitativ < 0.30 0.00-0.30 C Reactive Protein Quantitativ HILDA ([facility]) ID Date Data Source [id number] 01/09/2020 03:51:00 PM EST HILDA ([facility]) Name Value Range Interpretation Code Description Data Ellie rce(s) Supporting Document(s) triglycerides level 314 mg/dL <150 Above high normal Triglycer ides Level HILDA ([facility]) Cholesterol in LDL [Mass/volume] in Serum or Plasma 177 mg/dL <100 Above high normal LDL Cholesterol H[facility]DA ([facility]) cholesterol level 278 mg/dL <200 Above high normal Cholesterol Level HILDA ([facility]) HDL cholesterol 38 mg/dL >40 Below low normal HDL Cholestero l HILDA ([facility]) non-HDL-C 240 mg/dL Non-hdl-c HILDA ([facility]) cholesterol risk ratio <5 Above high normal Choles terol Risk Ratio HILDA ([facility]) ID Date Data Source [id number] 12/17/2019 04:48:00 PM EST [facility] ([facility]) Name Value Range Interpretation Code Description Data Ellie rce(s) Supporting Document(s) White Blood Count 8.2 4.0-10.0 [facility] ([facility]) Red Blood Count 5.36 4.00-5.40 [facility] ([facility]) Hemoglobin 14.5 [facility] ([facility]) Platelets 248 172-450 [facility] Hematocrit 45.1 [facility] ([facility]) ID Date Data Source [id number] 12/17/2019 04:48:00 PM EST [facility] ([facility]) Name Value Range Interpretation Code Description Data Ellie rce(s) Supporting Document(s) Magnesium Level 2.0 1.8-2.4 [facility] ([facility]) Thyroid Stimulating Hormone 1.360 ME DENT ([facility]) Free T4 0.73 [facility] ([facility]) ID Date Data Source [id number] 12/17/2019 04:48:00 PM EST [facility] ([facility]) Name Value Range Interpretation Code Description Data Ellie rce(s) Supporting Document(s) Alanine aminotransferase [Enzymatic activity/volume] in Serum or Pl asma 39 [facility] ([facility]) Albumin [Mass/volume] in Serum or Plasma 3.7 [facility] ([facility]) Calcium [Mass/volume] in Serum or Plasma 8.9 [facility] ([facility]) Carbon dioxide, total [Moles/volume] in Serum or Plasma 30 [facility] ([facility]) Chloride [Moles/volume] in Serum or Plasma 105 [facility] ([facility]) Alkaline phosphatase [Enzymatic activity/volume] in Serum or Plasma 8 0 [facility] ([facility]) Protein [Mass/volume] in Serum or Plasma 7.1 [facility] ([facility]) Potassium [Moles/volume] in Serum or Plasma 4.0 [facility] ([facility]) Sodium 142 [facility] ([facility]) Urea nitrogen [Mass/volume] in Serum or Plasma 20 [facility] ([facility]) Glucose 83 70-100 [facility] ([facility]) Aspartate aminotransferase [Enzymatic activity/volume] in Serum or Plasma 24 [facility] ([facility]) Creatinine For GFR 1.16 [facility] ([facility]) ID Date Data Source [id number] 12/16/2019 02:05:00 PM EST [facility] ([facility]) Name Value Range Interpretation Code Description Data Ellie rce(s) Supporting Document(s) ID Date Data Source [id number] 12/16/2019 02:05:00 PM EST [facility] ([facility]) Name Value Range Interpretation Code Description Data Ellie rce(s) Supporting Document(s) ID Date Data Source [id number] 12/16/2019 02:05:00 PM EST [facility] ([facility]) Name Value Range Interpretation Code Description Data Ellie rce(s) Supporting Document(s) ID Date Data Source [id number] 12/16/2019 02:05:00 PM EST [facility] ([facility]) Name Value Range Interpretation Code Description Data Ellie rce(s) Supporting Document(s) ID Date Data Source [id number] 12/16/2019 02:05:00 PM EST [facility]) Name Value Range Interpretation Code Description Data Ellie rce(s) Supporting Document(s) ID Date Data Source [id number] 12/16/2019 02:05:00 PM EST [facility]) Name Value Range Interpretation Code Description Data Ellie rce(s) Supporting Document(s) ID Date Data Source [id number] 12/16/2019 02:05:00 PM EST [facility] ([facility]) Name Value Range Interpretation Code Description Data Ellie rce(s) Supporting Document(s) ID Date Data Source [id number] 12/16/2019 02:05:00 PM EST [facility]) Name Value Range Interpretation Code Description Data Ellie rce(s) Supporting Document(s) ID Date Data Source [id number] 12/16/2019 02:05:00 PM EST [facility]) Name Value Range Interpretation Code Description Data Ellie rce(s) Supporting Document(s) ID Date Data Source [id number] 12/16/2019 02:05:00 PM EST [facility] ([facility]) Name Value Range Interpretation Code Description Data Ellie rce(s) Supporting Document(s) ID Date Data Source [id number] 12/16/2019 02:05:00 PM EST [facility] ([facility]) Name Value Range Interpretation Code Description Data Ellie rce(s) Supporting Document(s) ID Date Data Source [id number] 12/16/2019 02:05:00 PM EST [facility] ([facility]) Name Value Range Interpretation Code Description Data Ellie rce(s) Supporting Document(s) ID Date Data Source [id number] 12/16/2019 02:05:00 PM EST [facility] ([facility]) Name Value Range Interpretation Code Description Data Ellie rce(s) Supporting Document(s) ID Date Data Source [id number] 12/16/2019 02:05:00 PM EST [facility] ([facility]) Name Value Range Interpretation Code Description Data Ellie rce(s) Supporting Document(s) ID Date Data Source [id number] 12/16/2019 02:05:00 PM EST [facility] ([facility]) Name Value Range Interpretation Code Description Data Ellie rce(s) Supporting Document(s) ID Date Data Source [id number] 12/16/2019 02:05:00 PM EST [facility] ([facility]) Name Value Range Interpretation Code Description Data Ellie rce(s) Supporting Document(s) ID Date Data Source [id number] 12/16/2019 02:05:00 PM EST [facility] ([facility]) Name Value Range Interpretation Code Description Data Ellie rce(s) Supporting Document(s) ID Date Data Source [id number] 12/16/2019 02:05:00 PM EST [facility] ([facility]) Name Value Range Interpretation Code Description Data Ellie rce(s) Supporting Document(s) ID Date Data Source [id number] 12/16/2019 02:05:00 PM EST [facility] ([facility]) Name Value Range Interpretation Code Description Data Ellie rce(s) Supporting Document(s) ID Date Data Source [id number] 12/16/2019 02:05:00 PM EST [facility] ([facility]) Name Value Range Interpretation Code Description Data Ellie rce(s) Supporting Document(s) ID Date Data Source [id number] 12/16/2019 02:05:00 PM EST [facility] ([facility]) Name Value Range Interpretation Code Description Data Ellie rce(s) Supporting Document(s) ID Date Data Source [id number] 12/16/2019 02:05:00 PM EST [facility] ([facility]) Name Value Range Interpretation Code Description Data Ellie rce(s) Supporting Document(s) ID Date Data Source [id number] 12/16/2019 02:05:00 PM EST [facility] ([facility]) Name Value Range Interpretation Code Description Data Ellie rce(s) Supporting Document(s) ID Date Data Source [id number] 12/16/2019 02:05:00 PM EST [facility] ([facility]) Name Value Range Interpretation Code Description Data Ellie rce(s) Supporting Document(s) ID Date Data Source [id number] 12/16/2019 02:05:00 PM EST [facility] ([facility]) Name Value Range Interpretation Code Description Data Ellie rce(s) Supporting Document(s) ID Date Data Source [id number] 12/16/2019 02:05:00 PM EST [facility] ([facility]) Name Value Range Interpretation Code Description Data Ellie rce(s) Supporting Document(s) ID Date Data Source [id number] 12/16/2019 02:05:00 PM EST [facility] ([facility]) Name Value Range Interpretation Code Description Data Ellie rce(s) Supporting Document(s) ID Date Data Source [id number] 12/16/2019 02:05:00 PM EST [facility] ([facility]) Name Value Range Interpretation Code Description Data Ellie rce(s) Supporting Document(s) ID Date Data Source [id number] 12/16/2019 02:05:00 PM EST [facility] ([facility]) Name Value Range Interpretation Code Description Data Ellie rce(s) Supporting Document(s) ID Date Data Source [id number] 12/16/2019 02:05:00 PM EST [facility] ([facility]) Name Value Range Interpretation Code Description Data Ellie rce(s) Supporting Document(s) ID Date Data Source [id number] 12/16/2019 02:05:00 PM EST [facility]) Name Value Range Interpretation Code Description Data Ellie rce(s) Supporting Document(s) ID Date Data Source [id number] 12/16/2019 02:05:00 PM EST [facility]) Name Value Range Interpretation Code Description Data Ellie rce(s) Supporting Document(s) ID Date Data Source [id number] 12/16/2019 02:05:00 PM EST [facility] ([facility]) Name Value Range Interpretation Code Description Data Ellie rce(s) Supporting Document(s) ID Date Data Source [id number] 12/16/2019 02:05:00 PM EST [facility] ([facility]) Name Value Range Interpretation Code Description Data Ellie rce(s) Supporting Document(s) ID Date Data Source [id number] 12/16/2019 02:05:00 PM EST [facility] ([facility]) Name Value Range Interpretation Code Description Data Ellie rce(s) Supporting Document(s) ID Date Data Source [id number] 12/16/2019 02:05:00 PM EST [facility] ([facility]) Name Value Range Interpretation Code Description Data Ellie rce(s) Supporting Document(s) ID Date Data Source [id number] 12/16/2019 [facility]:05:[facility] Name Value [facility] Interpretation Code Description Data Ellie rce(s) Supporting Document(s) ID Date Data Source [id number] 12/11/2019 04:30:00 AM [facility] Name Value Range Interpretation Code Description Data Ellie rce(s) Supporting Document(s) SARS-CoV-2 (COVID-19) RNA [Presence] in Respiratory specimen by HITESH with probe detection not detected not detected Sars Cov 2 RNA [facility]) ID Date Data Source [id number] 12/11/2019 04:30:00 AM [facility] Name Value Range Interpretation Code Description Data Ellie rce(s) Supporting Document(s) SARS-CoV-2 (COVID-19) RNA [Presence] in Respiratory specimen by HITESH with probe detection not detected not detected Sars Cov 2 RNA [facility]) ID Date Data Source [id number] 12/11/2019 04:30:00 AM EST [facility]) Name Value Range Interpretation Code Description Data Ellie rce(s) Supporting Document(s) SARS-CoV-2 (COVID-19) RNA [Presence] in Respiratory specimen by HITESH with probe detection not detected not detected Sars Cov 2 RNA [facility]) ID Date Data Source [id number] 12/11/2019 04:30:00 AM EST [facility]) Name Value Range Interpretation Code Description Data Ellie rce(s) Supporting Document(s) SARS-CoV-2 (COVID-19) RNA [Presence] in Respiratory specimen by HITESH with probe detection not detected not detected Sars Cov 2 RNA [facility]) ID Date Data Source [id number] 12/11/2019 04:30:00 AM EST [facility]) Name Value Range Interpretation Code Description Data Ellie rce(s) Supporting Document(s) SARS-CoV-2 (COVID-19) RNA [Presence] in Respiratory specimen by HITESH with probe detection not detected not detected Sars Cov 2 RNA [facility]) ID Date Data Source [id number] 12/11/2019 04:30:00 AM EST [facility]) Name Value Range Interpretation Code Description Data Ellie rce(s) Supporting Document(s) SARS-CoV-2 (COVID-19) RNA [Presence] in Respiratory specimen by HITESH with probe detection not detected not detected Sars Cov 2 RNA [facility]) ID Date Data Source [id number] 12/11/2019 04:30:00 AM EST [facility] ([facility]) Name Value Range Interpretation Code Description Data Ellie rce(s) Supporting Document(s) SARS-CoV-2 (COVID-19) RNA [Presence] in Respiratory specimen by HITESH with probe detection not detected not detected Sars Cov 2 RNA [facility]) ID Date Data Source [id number] 12/11/2019 04:30:00 AM EST [facility]) Name Value Range Interpretation Code Description Data Ellie rce(s) Supporting Document(s) SARS-CoV-2 (COVID-19) RNA [Presence] in Respiratory specimen by HITESH with probe detection not detected not detected Sars Cov 2 RNA [facility]) ID Date Data Source [id number] 12/11/2019 04:30:00 AM EST [facility]) Name Value Range Interpretation Code Description Data Ellie rce(s) Supporting Document(s) SARS-CoV-2 (COVID-19) RNA [Presence] in Respiratory specimen by HITESH with probe detection not detected not detected Sars Cov 2 RNA [facility]) ID Date Data Source [id number] 12/11/2019 04:30:00 AM EST [facility]) Name Value Range Interpretation Code Description Data Ellie rce(s) Supporting Document(s) SARS-CoV-2 (COVID-19) RNA [Presence] in Respiratory specimen by HITESH with probe detection not detected not detected Sars Cov 2 RNA [facility]) ID Date Data Source [id number] 12/11/2019 04:30:00 AM EST [facility]) Name Value Range Interpretation Code Description Data Ellie rce(s) Supporting Document(s) SARS-CoV-2 (COVID-19) RNA [Presence] in Respiratory specimen by HITESH with probe detection not detected not detected Sars Cov 2 RNA [facility]) ID Date Data Source [id number] 12/11/2019 04:30:00 AM EST [place] ([facility]) Name Value Range Interpretation Code Description Data Ellie rce(s) Supporting Document(s) SARS-CoV-2 (COVID-19) RNA [Presence] in Respiratory specimen by HITESH with probe detection not detected not detected Sars Cov 2 RNA [facility]) ID Date Data Source [id number] 12/11/2019 04:30:00 AM EST [facility]) Name Value Range Interpretation Code Description Data Ellie rce(s) Supporting Document(s) SARS-CoV-2 (COVID-19) RNA [Presence] in Respiratory specimen by HITESH with probe detection not detected not detected Sars Cov 2 RNA [facility]) ID Date Data Source [id number] 12/11/2019 04:30:00 AM EST [facility]) Name Value Range Interpretation Code Description Data Ellie rce(s) Supporting Document(s) SARS-CoV-2 (COVID-19) RNA [Presence] in Respiratory specimen by HITESH with probe detection not detected not detected Sars Cov 2 RNA [facility]) ID Date Data Source [id number] 12/11/2019 04:30:00 AM EST [facility]) Name Value Range Interpretation Code Description Data Ellie rce(s) Supporting Document(s) SARS-CoV-2 (COVID-19) RNA [Presence] in Respiratory specimen by HITESH with probe detection not detected not detected Sars Cov 2 RNA [facility]) ID Date Data Source [id number] 12/11/2019 04:30:00 AM EST [facility]) Name Value Range Interpretation Code Description Data Ellie rce(s) Supporting Document(s) SARS-CoV-2 (COVID-19) RNA [Presence] in Respiratory specimen by HITESH with probe detection not detected not detected Sars Cov 2 RNA [facility]) ID Date Data Source [id number] 12/11/2019 04:30:00 AM EST [place] ([facility]) Name Value Range Interpretation Code Description Data Ellie rce(s) Supporting Document(s) SARS-CoV-2 (COVID-19) RNA [Presence] in Respiratory specimen by HITESH with probe detection not detected not detected Sars Cov 2 RNA [facility]) ID Date Data Source [id number] 12/11/2019 04:30:00 AM EST [facility]) Name Value Range Interpretation Code Description Data Ellie rce(s) Supporting Document(s) SARS-CoV-2 (COVID-19) RNA [Presence] in Respiratory specimen by HITESH with probe detection not detected not detected Sars Cov 2 RNA [facility]) ID Date Data Source [id number] 12/11/2019 04:30:00 AM EST [facility]) Name Value Range Interpretation Code Description Data Ellie rce(s) Supporting Document(s) SARS-CoV-2 (COVID-19) RNA [Presence] in Respiratory specimen by HITESH with probe detection not detected not detected Sars Cov 2 RNA [facility]) ID Date Data Source [id number] 12/11/2019 04:30:00 AM EST [facility]) Name Value Range Interpretation Code Description Data Ellie rce(s) Supporting Document(s) SARS-CoV-2 (COVID-19) RNA [Presence] in Respiratory specimen by HITESH with probe detection not detected not detected Sars Cov 2 RNA [facility]) ID Date Data Source [id number] 12/11/2019 04:30:00 AM EST [facility]) Name Value Range Interpretation Code Description Data Ellie rce(s) Supporting Document(s) SARS-CoV-2 (COVID-19) RNA [Presence] in Respiratory specimen by HITESH with probe detection not detected not detected Sars Cov 2 RNA [facility]) ID Date Data Source [id number] 12/11/2019 04:30:00 AM EST [facility]) Name Value Range Interpretation Code Description Data Ellie rce(s) Supporting Document(s) SARS-CoV-2 (COVID-19) RNA [Presence] in Respiratory specimen by HITESH with probe detection not detected not detected Sars Cov 2 RNA [facility]) ID Date Data Source [id number] 12/11/2019 04:30:00 AM EST [facility]) Name Value Range Interpretation Code Description Data Ellie rce(s) Supporting Document(s) SARS-CoV-2 (COVID-19) RNA [Presence] in Respiratory specimen by HITESH with probe detection not detected not detected Sars Cov 2 RNA [facility]) ID Date Data Source [id number] 12/11/2019 04:30:00 [facility] Name Value Range Interpretation Code Description Data Ellie rce(s) Supporting Document(s) SARS-CoV-2 (COVID-19) RNA [Presence] in Respiratory specimen by HITESH with probe detection not detected not detected Sars Cov 2 RNA [facility]) ID Date Data Source [id number] 12/11/2019 04:30:00 AM EST [facility]) Name Value Range Interpretation Code Description Data Ellie rce(s) Supporting Document(s) SARS-CoV-2 (COVID-19) RNA [Presence] in Respiratory specimen by HITESH with probe detection not detected not detected Sars Cov 2 RNA [facility]) ID Date Data Source [id number] 12/11/2019 04:30:00 AM EST [facility]) Name Value Range Interpretation Code Description Data Ellie rce(s) Supporting Document(s) SARS-CoV-2 (COVID-19) RNA [Presence] in Respiratory specimen by HITESH with probe detection not detected not detected Sars Cov 2 RNA [facility]) ID Date Data Source [id number] 12/11/2019 04:30:00 AM EST [facility]) Name Value Range Interpretation Code Description Data Ellie rce(s) Supporting Document(s) SARS-CoV-2 (COVID-19) RNA [Presence] in Respiratory specimen by HITESH with probe detection not detected not detected Sars Cov 2 RNA [facility]) ID Date Data Source [id number] 12/11/2019 04:30:00 AM EST [facility]) Name Value Range Interpretation Code Description Data Ellie rce(s) Supporting Document(s) SARS-CoV-2 (COVID-19) RNA [Presence] in Respiratory specimen by HITESH with probe detection not detected not detected Sars Cov 2 RNA [facility]) ID Date Data Source [id number] 12/11/2019 04:30:00 AM EST [facility]) Name Value Range Interpretation Code Description Data Ellie rce(s) Supporting Document(s) SARS-CoV-2 (COVID-19) RNA [Presence] in Respiratory specimen by HITESH with probe detection not detected not detected Sars Cov 2 RNA [facility]) ID Date Data Source [id number] 12/11/2019 04:30:00 AM EST [facility]) Name Value Range Interpretation Code Description Data Ellie rce(s) Supporting Document(s) SARS-CoV-2 (COVID-19) RNA [Presence] in Respiratory specimen by HITESH with probe detection not detected not detected Sars Cov 2 RNA [facility]) ID Date Data Source [id number] 12/11/2019 04:30:00 AM EST [facility] ([facility]) Name Value Range Interpretation Code Description Data Ellie rce(s) Supporting Document(s) SARS coronavirus 2 RNA [Presence] in Res piratory specimen by HITESH with probe detection not detected not detected Sars Cov 2 RNA [facility] ([facility]) ID Date Data Source [id number] 12/11/2019 04:30:00 AM EST [facility] ([facility]) Name Value Range Interpretation Code Description Data Ellie rce(s) Supporting Document(s) SARS coronavirus 2 RNA [Presence] in Res piratory specimen by IHTESH with probe detection not detected not detected Sars Cov 2 RNA [place] ([facility]) ID Date Data Source [id number] 12/11/2019 04:30:00 AM EST [facility] ([facility]) Name Value Range Interpretation Code Description Data Ellie rce(s) Supporting Document(s) SARS coronavirus 2 RNA [Presence] in Res piratory specimen by HITESH with probe detection not detected not detected Sars Cov 2 RNA [facility] ([facility]) ID Date Data Source [id number] 12/11/2019 04:30:00 AM EST [facility] ([facility]) Name Value Range Interpretation Code Description Data Ellie rce(s) Supporting Document(s) SARS coronavirus 2 RNA [Presence] in Res piratory specimen by HITESH with probe detection not detected not detected Sars Cov 2 RNA [facility] ([facility]) ID Date Data Source [id number] 12/11/2019 04:30:00 AM EST [facility] Name Value Range Interpretation Code Description Data Ellie rce(s) Supporting Document(s) SARS-COV-2 RNA RESP QL HITESH+PROBE [facility] This lab was ordered by [facility] and reported by [facility]. ID Date Data Source [id number] 12/11/2019 04:30:00 AM EST [place] ([facility]) Name Value Range Interpretation Code Description Data Ellie rce(s) Supporting Document(s) SARS-CoV-2 (COVID-19) RNA [Presence] in Respiratory specimen by HITESH with probe detection not detected not detected Sars Cov 2 RNA [facility]) ID Date Data Source [id number] 12/11/2019 04:30:00 AM EST [place] ([facility]) Name Value Range Interpretation Code Description Data Ellie rce(s) Supporting Document(s) SARS-CoV-2 (COVID-19) RNA [Presence] in Respiratory specimen by HITESH with probe detection not detected not detected Sars Cov 2 RNA [facility]) ID Date Data Source [id number] 12/11/2019 04:30:00 AM [place] [facility] ([facility]) Name Value Range Interpretation Code Description Data Ellie rce(s) Supporting Document(s) SARS-CoV-2 (COVID-19) RNA [Presence] in Respiratory specimen by HITESH with probe detection not detected not detected Sars Cov 2 RNA [facility]) ID Date Data Source [id number] 10/28/2019 05:05:00 PM EDT [facility] [place] ([facility]) Name Value Range Interpretation Code Description Data Ellie rce(s) Supporting Document(s) Troponin Laboratory [facility] ID Date Data Source [id number] 10/28/2019 05:05:00 PM EDT [facility] [place] Name Value Range Interpretation Code Description Data Ellie rce(s) Supporting Document(s) Creatine kinase [Enzymatic activity/volume] in Serum or Plasma 359 [facility]) CPK-MB Laboratory test [facility]) ID Date Data Source [id number] 10/28/2019 03:32:56 PM EDT [facility] Measurements & CalculationsHeight: 72 inches (6 ft. 0 in.) 182.88 cm Weight: 222.2 pounds 101 kg Body Mass Index (BMI): 30.24BMI Interpretation: ObeseBody Surface Area (BSA): 2.23Weight Management Education Done (Nutrition/Physical Activity)Vital SignsTemperature: 97.8F 36.56C tympanic Pulse Rate: 82 beats/minuteRespiratory Rate: 18 respirations/minuteBlood Pressure: 134/70 left arm sitting automaticO2 Saturation: 97% Vital Signs performed by: Cmaila Whatley LPN, October 28, 2019 3:33 PMInitial [...] 2019 3:36 PMPatient History Medical History:Anxiety/panicInsomniaSurgical History:Family History:YKT-nlryjjGcjgbef-mnhorhdPidqnu/Personal History:Smoking History:Patient has never smoked. Chief Complaintfollow-up [...] jaw, sadness/scared/depressed. Pt also was seen in [facility] ER last night/this morning for panic [...] during this visit, including review of any tfzb-uld-jfzbwvn medications, herbal therapies, and/or supplements.Allergy ReviewAllergy List [...] is? ExcellentAssessment & Plan Problems:Added: Chronic insomnia (IVJ59-Q56.04) Assessment: Instructions: As above.Chest pain, unspecified (UHV86-O24.9) Assessment: Instructions: Referral to cardiology for evaluation. Unlikely to be cardiac in nature with frequent labs/EKG.Bradycardia (ICD-427.89) (ICD10- R00.1) Assessment: Instructions: Likely secondary to routine fitness levels. However, given brother's syncopal episodes and loop recorder, will refer to cardiology for evaluation.Assessed:GENERALIZED ANXIETY DISORDER (ICD- 300.02) (UVI87-U46.1) Assessment: Instructions: Continue current Lexapro daily and [...] HYDROXYZINE HCL 10 MG ORAL TABLET Qty: [id number] Refills: 30[Tablet] To: HYDROXYZINE HCL 10 MG ORAL TABLET-Take 1 tablet po q 6 hrs prnAllergies:No Known Allergies (updated 10/28/2019) Orders:Cardiology Consult [CPT-71398] Adult - Ofc Vst, EST, Level III [CPT- 95591] Follow-Up Return to clinic: in 2 months for follow upAdditional Follow- Up: cardio referral, anxietyClinical Visit Summary CompletedMedications:HYDROXYZINE HCL 25 MG ORAL TABLET (HYDROXYZINE HCL) Take 1- 2 tablets by mouth at bedtime prn insomnia #60[Tablet] x 1 Route:ORAL Entered and Authorized by: Terry AGUAYO [facility] ([facility] [address] [place] [address] Note to Pharmacy: Route: ORAL; Indications: CHRONIC INSOMNIA;GENERALIZED ANXIETY DISORDER RxID: [id number] signed by Terry AGUAYO on 11/13/2019 at 8:30 AM Name Value Range Interpretation Code Description Data Ellie rce(s) Supporting Document(s) ID Date Data Source [id number] 10/28/2019 02:21:00 AM EDT [facility] Name Value Range Interpretation Code Description Data Ellie rce(s) Supporting Document(s) HCT 45.6 % 42.0-52.0 N [facility] HGB 14.9 g/dL 13.5-17.5 N [facility] MCH 32.7 G/DL pg 32.0-36.5 N [facility] MCHC 27.6 PG % 27.0-33.0 N [facility] PLATELETS 259 10 10*3/mm3 150-450 N [facility] RBC 5.40 10 10*6/mm3 4.30-6.10 [facility] RDW 13.2 % 11.5-14.5 [facility] WBC TOTAL 10.0 4.0-10.0 N [facility] ID Date Data Source [id number] 10/28/2019 02:21:00 AM EDT [facility] Name Value Range Interpretation Code Description Data Ellie rce(s) Supporting Document(s) BG FASTING 102 mg/dL 70-100 H [facility] ID Date Data Source [id number] 09/30/2019 01:44:[address] [facility] Measurements & CalculationsHeight: 72 inches (6 [...] Present Illness (HPI)28 yo male presents for [facility] ER f/u. Pt states he has been having terrible migraines for a few days and yesterday woke up with heart racing, feeling like "brain on fire" and chest tightness. Went to [facility] ED last night and was released [...] during this visit, including review of any uhnt-htx-vmucafk medications, herbal therapies, and/or supplements.Allergy ReviewAllergy List [...] Problems:Assessed:Adjustment disorder with mixed emotional features (ICD-309.28) (EDO56-A89.23) Assessment: Instructions: Continue Lexapro daily. Hydroxyzine may be taken up to 2 tablets every 6 hrs daily as needed, with last dose at bedtime for insomnia. Ativan for severe panic, take 1/2 tablet to start and if no relief after 30 minutes then take second 1/2. New Rx sent for short supply.C/O - panic attack (ICD-300.01) (LOU27-N03.0) Assessment: Instructions: As above.Gastro-esophageal reflux disease without esophagitis (ICD-530.81) (EQC76-S48.9) Assessment: Instructions: Continue omeprazole as prescribed. Hold [...] - Ofc Vst, EST, Level III [CPT -16234] Follow-Up Return to clinic: as needed, as scheduled Clinical Visit Summary Completed Name Value Range Interpretation Code Description Data Ellie rce(s) Supporting Document(s) ID Date Data Source [id number] 09/30/2019 03:16:00 AM EDT [facility] Name Value Range Interpretation Code Description Data Ellie rce(s) Supporting Document(s) HCT 43.9 % 42.0-52.0 N [facility] HGB 15.1 g/dL 13.5-17.5 N [facility] MCH 34.4 G/DL pg 32.0-36.5 [facility] MCHC 28.9 PG % 27.0-33.0 N [facility] PLATELETS 263 10 10*3/mm3 150-450 N [facility] RBC 5.22 10 10*6/mm3 4.30-6.10 N [facility] RDW 13.0 % 11.5-14.5 N [facility] WBC TOTAL 8.2 4.0-10.0 N [facility] ID Date Data Source [id number] 09/30/2019 03:16:00 AM EDT [facility] Name Value Range Interpretation Code Description Data Ellie rce(s) Supporting Document(s) BG FASTING 100 mg/dL 70-100 N [facility] T4, FREE 1.04 ng/dL 0.76-1.46 N [facility] TSH 2.080 microintl units/mL 0.358-3.740 N [facility] Procedure Social History Code Duration Value Status Description Data Source(s ) Smoking 01/07/2020 12:00:00 AM EST Patient is a former smoker completed Patient is a former smoker [facility] ([facility]) Vital Signs ID Date Data Source UNK Name Value Range Interpretation Code Description Data Source(s) Respiratory rate 12 /min 12 /min [facility] ( [facility], ) Body height 72 [in_i] 72 [in_i] [facility] ([facility], ) 6'0" Body weight 214.00 [lb_av] 214.00 [lb_av] MEDEN T ([facility], ) Body mass index (BMI) [Ratio] 29.0 kg/m2 29.0 k g/m2 [facility] ([facility], ) [place] body weight 178 [lb_av] 178 [lb_av] MEDEN T ([facility], ) Body temperature 97.7 [degF] 97.7 [degF] [facility] ([facility]) Body height 72 [in_i] 72 [in_i] [facility] ([facility]) 6'0" Body weight 214.12 [lb_av] 214.12 [lb_av] MEDEN T ([facility]) Body mass index (BMI) [Ratio] 29.0 kg/m2 29.0 k g/m2 [facility] ([facility]) Diastolic blood pressure 76 mm[Hg] 76 mm[Hg] [facility] ([facility]) Systolic blood pressure 123 mm[Hg] 123 mm[Hg] A THENA ([facility]) Body height 72 [in_i] 72 [in_i] [facility]DA ([facility]) Body mass index (BMI) [Ratio] 29.7 kg/m2 29.7 k g/m2 IHLDA ([facility]) Body weight 3507.2 [oz_av] 3507.2 [oz_av] ATHEN A ([facility]) Body mass index (BMI) [Ratio] 29.7 kg/m2 29.7 k g/m2 HILDA ([facility]) Body height 72 [in_i] 72 [in_i] [facility] ([facility]) Diastolic blood pressure 76 mm[Hg] 76 mm[Hg] [facility] ([facility]) Body weight 3507.2 [oz_av] 3507.2 [oz_av] ATHEN A ([facility]) Systolic blood pressure 123 mm[Hg] 123 mm[Hg] A THENA ([facility]) Diastolic blood pressure 76 mm[Hg] 76 mm[Hg] HILDA ([facility]) Body height 72 [in_i] 72 [in_i] HIDLA ([facility]) Body mass index (BMI) [Ratio] 29.7 kg/m2 29.7 k g/m2 [facility] ([facility]) Systolic blood pressure 123 mm[Hg] 123 mm[Hg] A THENA ([facility]) Body weight 3507.2 [oz_av] 3507.2 [oz_av] ATHEN A ([facility]) Body mass index (BMI) [Ratio] 29.7 kg/m2 29.7 k g/m2 HILDA ([facility]) Diastolic blood pressure 76 mm[Hg] 76 mm[Hg] H[facility]DA ([facility]) Body height 72 [in_i] 72 [in_i] [facility] ([facility]) Systolic blood pressure 123 mm[Hg] 123 mm[Hg] A [facility] ([facility]) Body weight 3507.2 [oz_av] 3507.2 [oz_av] ATHEN A ([facility]) Diastolic blood pressure 76 mm[Hg] 76 mm[Hg] HILDA ([facility]) Body height 72 [in_i] 72 [in_i] [facility] ([facility]) Body mass index (BMI) [Ratio] 29.7 kg/m2 29.7 k g/m2 [facility] ([facility]) Systolic blood pressure 123 mm[Hg] 123 mm[Hg] A [facility] ([facility]) Body weight 3507.2 [oz_av] 3507.2 [oz_av] ATHEN A ([facility]) Diastolic blood pressure 76 mm[Hg] 76 mm[Hg] HILDA ([facility]) Body height 72 [in_i] 72 [in_i] HILDA ([facility]) Body mass index (BMI) [Ratio] 29.7 kg/m2 29.7 k g/m2 H[facility] ([facility]) Systolic blood pressure 123 mm[Hg] 123 mm[Hg] A LUISA ([facility]) Body weight 3507.2 [oz_av] 3507.2 [oz_av] ATHEN A ([facility]) Diastolic blood pressure 76 mm[Hg] 76 mm[Hg] HILDA ([facility]) Body height 72 [in_i] 72 [in_i] H[facility]DA ([facility]) Body mass index (BMI) [Ratio] 29.7 kg/m2 29.7 k g/m2 H[facility] ([facility]) Systolic blood pressure 123 mm[Hg] 123 mm[Hg] A [facility] ([facility]) Body weight 3507.2 [oz_av] 3507.2 [oz_av] ATHEN A ([facility]) Diastolic blood pressure 76 mm[Hg] 76 mm[Hg] HILDA ([facility]) Body height 72 [in_i] 72 [in_i] HILDA ([facility]) Body mass index (BMI) [Ratio] 29.7 kg/m2 29.7 k g/m2 H[facility] ([facility]) Systolic blood pressure 123 mm[Hg] 123 mm[Hg] A [facility] ([facility]) Body weight 3507.2 [oz_av] 3507.2 [oz_av] ATHEN A ([facility]) Diastolic blood pressure 76 mm[Hg] 76 mm[Hg] HILDA ([facility]) Body height 72 [in_i] 72 [in_i] HILDA ([facility]) Body mass index (BMI) [Ratio] 29.7 kg/m2 29.7 k g/m2 [facility] ([facility]) Systolic blood pressure 123 mm[Hg] 123 mm[Hg] A [facility] ([facility]) Body weight 3507.2 [oz_av] 3507.2 [oz_av] ATHEN A ([facility]) Diastolic blood pressure 76 mm[Hg] 76 mm[Hg] IHLDA ([facility]) Body height 72 [in_i] 72 [in_i] HILDA ([facility]) Body mass index (BMI) [Ratio] 29.7 kg/m2 29.7 k g/m2 [facility] ([facility]) Systolic blood pressure 123 mm[Hg] 123 mm[Hg] A [facility] ([facility]) Body weight 3507.2 [oz_av] 3507.2 [oz_av] ATHEN A ([facility]) Systolic blood pressure 123 mm[Hg] 123 mm[Hg] A [facility] ([facility]) Body weight 3507.2 [oz_av] 3507.2 [oz_av] ATHEN A ([facility]) Diastolic blood pressure 76 mm[Hg] 76 mm[Hg] HILDA ([facility]) Body height 72 [in_i] 72 [in_i] H[facility]DA ([facility]) Body mass index (BMI) [Ratio] 29.7 kg/m2 29.7 k g/m2 [facility] ([facility]) Diastolic blood pressure 76 mm[Hg] 76 mm[Hg] H[facility]DA ([facility]) Body height 72 [in_i] 72 [in_i] H[facility] ([facility]) Body mass index (BMI) [Ratio] 29.7 kg/m2 29.7 k g/m2 [facility] ([facility]) Systolic blood pressure 123 mm[Hg] 123 mm[Hg] A [facility] ([facility]) Body weight 3507.2 [oz_av] 3507.2 [oz_av] ATHEN A ([facility]) Diastolic blood pressure 76 mm[Hg] 76 mm[Hg] HILDA ([facility]) Body height 72 [in_i] 72 [in_i] HILDA ([facility]) Body mass index (BMI) [Ratio] 29.7 kg/m2 29.7 k g/m2 [facility] ([facility]) Systolic blood pressure 123 mm[Hg] 123 mm[Hg] A [facility] ([facility]) Body weight 3507.2 [oz_av] 3507.2 [oz_av] ATHEN A ([facility]) Diastolic blood pressure 76 mm[Hg] 76 mm[Hg] HILDA ([facility]) Body height 72 [in_i] 72 [in_i] HILDA ([facility]) Body mass index (BMI) [Ratio] 29.7 kg/m2 29.7 k g/m2 [facility] ([facility]) Systolic blood pressure 123 mm[Hg] 123 mm[Hg] A THENA ([facility]) Body weight 3507.2 [oz_av] 3507.2 [oz_av] ATHEN A ([facility]) Diastolic blood pressure 76 mm[Hg] 76 mm[Hg] HILDA ([facility]) Body height 72 [in_i] 72 [in_i] HILDA ([facility]) Body mass index (BMI) [Ratio] 29.7 kg/m2 29.7 k g/m2 H[facility] ([facility]) Systolic blood pressure 123 mm[Hg] 123 mm[Hg] A [facility] ([facility]) Body weight 3507.2 [oz_av] 3507.2 [oz_av] ATHEN A ([facility]) Diastolic blood pressure 76 mm[Hg] 76 mm[Hg] HILDA ([facility]) Body weight 3507.2 [oz_av] 3507.2 [oz_av] ATHEN A ([facility]) Body height 72 [in_i] 72 [in_i] HILDA ([facility]) Body mass index (BMI) [Ratio] 29.7 kg/m2 29.7 k g/m2 H[facility] ([facility]) Systolic blood pressure 123 mm[Hg] 123 mm[Hg] A [facility] ([facility]) Diastolic blood pressure 76 mm[Hg] 76 mm[Hg] HILDA ([facility]) Body height 72 [in_i] 72 [in_i] HILDA ([facility]) Body mass index (BMI) [Ratio] 29.7 kg/m2 29.7 k g/m2 H[facility] ([facility]) Systolic blood pressure 123 mm[Hg] 123 mm[Hg] A THENA ([facility]) Body weight 3507.2 [oz_av] 3507.2 [oz_av] ATHEN A ([facility]) Diastolic blood pressure 76 mm[Hg] 76 mm[Hg] HILDA ([facility]) Body height 72 [in_i] 72 [in_i] HILDA ([facility]) Body mass index (BMI) [Ratio] 29.7 kg/m2 29.7 k g/m2 H[facility] ([facility]) Systolic blood pressure 123 mm[Hg] 123 mm[Hg] A THENA ([facility]) Body weight 3507.2 [oz_av] 3507.2 [oz_av] ATHEN A ([facility]) Diastolic blood pressure 76 mm[Hg] 76 mm[Hg] HILDA ([facility]) Body height 72 [in_i] 72 [in_i] HILDA ([facility]) Body mass index (BMI) [Ratio] 29.7 kg/m2 29.7 k g/m2 [facility] ([facility]) Systolic blood pressure 123 mm[Hg] 123 mm[Hg] A THENA ([facility]) Body weight 3507.2 [oz_av] 3507.2 [oz_av] ATHEN A ([facility]) Systolic blood pressure 119 mm[Hg] 119 mm[Hg] A [facility] ([facility]) Body weight 3603.2 [oz_av] 3603.2 [oz_av] ATHEN A ([facility]) Diastolic blood pressure 73 mm[Hg] 73 mm[Hg] HILDA ([facility]) Body height 72 [in_i] 72 [in_i] HILDA ([facility]) Body mass index (BMI) [Ratio] 30.5 kg/m2 30.5 k g/m2 H[facility] ([facility]) Diastolic blood pressure 73 mm[Hg] 73 mm[Hg] HILDA ([facility]) Body height 72 [in_i] 72 [in_i] HILDA ([facility]) Body mass index (BMI) [Ratio] 30.5 kg/m2 30.5 k g/m2 [facility] ([facility]) Systolic blood pressure 119 mm[Hg] 119 mm[Hg] A [facility] ([facility]) Body weight 3603.2 [oz_av] 3603.2 [oz_av] ATHEN A ([facility]) Diastolic blood pressure 73 mm[Hg] 73 mm[Hg] HILDA ([facility]) Body height 72 [in_i] 72 [in_i] HILDA ([facility]) Body mass index (BMI) [Ratio] 30.5 kg/m2 30.5 k g/m2 [facility] ([facility]) Systolic blood pressure 119 mm[Hg] 119 mm[Hg] A THENA ([facility]) Body weight 3603.2 [oz_av] 3603.2 [oz_av] ATHEN A ([facility]) Diastolic blood pressure 73 mm[Hg] 73 mm[Hg] HILDA ([facility]) Body height 72 [in_i] 72 [in_i] HILDA ([facility]) Body mass index (BMI) [Ratio] 30.5 kg/m2 30.5 k g/m2 [facility] ([facility]) Systolic blood pressure 119 mm[Hg] 119 mm[Hg] A THENA ([facility]) Body weight 3603.2 [oz_av] 3603.2 [oz_av] ATHEN A ([facility]) Diastolic blood pressure 73 mm[Hg] 73 mm[Hg] HILDA ([facility]) Body height 72 [in_i] 72 [in_i] HILDA ([facility]) Body mass index (BMI) [Ratio] 30.5 kg/m2 30.5 k g/m2 [facility] ([facility]) Systolic blood pressure 119 mm[Hg] 119 mm[Hg] A THENA ([facility]) Body weight 3603.2 [oz_av] 3603.2 [oz_av] ATHEN A ([facility]) Diastolic blood pressure 73 mm[Hg] 73 mm[Hg] HILDA ([facility]) Body height 72 [in_i] 72 [in_i] HILDA ([facility]) Body mass index (BMI) [Ratio] 30.5 kg/m2 30.5 k g/m2 [facility] ([facility]) Systolic blood pressure 119 mm[Hg] 119 mm[Hg] A THENA ([facility]) Body weight 3603.2 [oz_av] 3603.2 [oz_av] ATHEN A ([facility]) Diastolic blood pressure 73 mm[Hg] 73 mm[Hg] HILDA ([facility]) Body height 72 [in_i] 72 [in_i] HILDA ([facility]) Body mass index (BMI) [Ratio] 30.5 kg/m2 30.5 k g/m2 [facility] ([facility]) Systolic blood pressure 119 mm[Hg] 119 mm[Hg] A THENA ([facility]) Body weight 3603.2 [oz_av] 3603.2 [oz_av] ATHEN A ([facility]) Diastolic blood pressure 73 mm[Hg] 73 mm[Hg] HILDA ([facility]) Body height 72 [in_i] 72 [in_i] HILDA ([facility]) Body mass index (BMI) [Ratio] 30.5 kg/m2 30.5 k g/m2 [facility] ([facility]) Systolic blood pressure 119 mm[Hg] 119 mm[Hg] A LUISA ([facility]) Body weight 3603.2 [oz_av] 3603.2 [oz_av] ATHEN A ([facility]) Diastolic blood pressure 73 mm[Hg] 73 mm[Hg] HILDA ([facility]) Body height 72 [in_i] 72 [in_i] HILDA ([facility]) Body mass index (BMI) [Ratio] 30.5 kg/m2 30.5 k g/m2 [facility] ([facility]) Systolic blood pressure 119 mm[Hg] 119 mm[Hg] A MOIZ ([facility]) Body weight 3603.2 [oz_av] 3603.2 [oz_av] ATHEN A ([facility]) Diastolic blood pressure 73 mm[Hg] 73 mm[Hg] HILDA ([facility]) Body height 72 [in_i] 72 [in_i] HILDA ([facility]) Body mass index (BMI) [Ratio] 30.5 kg/m2 30.5 k g/m2 [facility] ([facility]) Systolic blood pressure 119 mm[Hg] 119 mm[Hg] A MOIZ ([facility]) Body weight 3603.2 [oz_av] 3603.2 [oz_av] ATHEN A ([facility]) Diastolic blood pressure 73 mm[Hg] 73 mm[Hg] HILDA ([facility]) Body height 72 [in_i] 72 [in_i] HILDA ([facility]) Body mass index (BMI) [Ratio] 30.5 kg/m2 30.5 k g/m2 [facility] ([facility]) Systolic blood pressure 119 mm[Hg] 119 mm[Hg] A LUISA ([facility]) Body weight 3603.2 [oz_av] 3603.2 [oz_av] ATHEN A ([facility]) Body height 72 [in_i] 72 [in_i] HILDA ([facility]) Body mass index (BMI) [Ratio] 30.5 kg/m2 30.5 k g/m2 [facility] ([facility]) Systolic blood pressure 119 mm[Hg] 119 mm[Hg] A [facility] ([facility]) Body weight 3603.2 [oz_av] 3603.2 [oz_av] ATHEN A ([facility]) Diastolic blood pressure 73 mm[Hg] 73 mm[Hg] HILDA ([facility]) Diastolic blood pressure 73 mm[Hg] 73 mm[Hg] HILDA ([facility]) Body height 72 [in_i] 72 [in_i] HILDA ([facility]) Body mass index (BMI) [Ratio] 30.5 kg/m2 30.5 k g/m2 [facility] ([facility]) Systolic blood pressure 119 mm[Hg] 119 mm[Hg] A [facility] ([facility]) Body weight 3603.2 [oz_av] 3603.2 [oz_av] ATHEN A ([facility]) Systolic blood pressure 119 mm[Hg] 119 mm[Hg] A [facility] ([facility]) Body height 72 [in_i] 72 [in_i] HILDA ([facility]) Body mass index (BMI) [Ratio] 30.5 kg/m2 30.5 k g/m2 [facility] ([facility]) Body weight 3603.2 [oz_av] 3603.2 [oz_av] ATHEN A ([facility]) Diastolic blood pressure 73 mm[Hg] 73 mm[Hg] H[facility]DA ([facility]) Diastolic blood pressure 73 mm[Hg] 73 mm[Hg] H[facility]DA ([facility]) Body height 72 [in_i] 72 [in_i] H[facility]DA ([facility]) Body mass index (BMI) [Ratio] 30.5 kg/m2 30.5 k g/m2 [facility] ([facility]) Systolic blood pressure 119 mm[Hg] 119 mm[Hg] A [facility] ([facility]) Body weight 3603.2 [oz_av] 3603.2 [oz_av] ATHEN A ([facility]) Body mass index (BMI) [Ratio] 30.5 kg/m2 30.5 k g/m2 [facility] ([facility]) Systolic blood pressure 119 mm[Hg] 119 mm[Hg] A [facility] ([facility]) Body weight 3603.2 [oz_av] 3603.2 [oz_av] ATHEN A ([facility]) Diastolic blood pressure 73 mm[Hg] 73 mm[Hg] HILDA ([facility]) Body height 72 [in_i] 72 [in_i] [facility] ([facility]) Diastolic blood pressure 73 mm[Hg] 73 mm[Hg] [facility] ([facility]) Body height 72 [in_i] 72 [in_i] [facility]DA ([facility]) Body mass index (BMI) [Ratio] 30.5 kg/m2 30.5 k g/m2 [facility] ([facility]) Systolic blood pressure 119 mm[Hg] 119 mm[Hg] A [facility] ([facility]) Body weight 3603.2 [oz_av] 3603.2 [oz_av] ATHEN A ([facility]) Diastolic blood pressure 73 mm[Hg] 73 mm[Hg] HILDA ([facility]) Body height 72 [in_i] 72 [in_i] [facility] ([facility]) Body mass index (BMI) [Ratio] 30.5 kg/m2 30.5 k g/m2 [facility] ([facility]) Systolic blood pressure 119 mm[Hg] 119 mm[Hg] A [facility] ([facility]) Body weight 3603.2 [oz_av] 3603.2 [oz_av] ATHEN A ([facility]) Diastolic blood pressure 73 mm[Hg] 73 mm[Hg] H[facility]DA ([facility]) Body height 72 [in_i] 72 [in_i] [facility] ([facility]) Body mass index (BMI) [Ratio] 30.5 kg/m2 30.5 k g/m2 [facility] ([facility]) Systolic blood pressure 119 mm[Hg] 119 mm[Hg] A [facility] ([facility]) Body weight 3603.2 [oz_av] 3603.2 [oz_av] ATHEN A ([facility]) Diastolic blood pressure 73 mm[Hg] 73 mm[Hg] [facility]DA ([facility]) Body height 72 [in_i] 72 [in_i] [facility] ([facility]) Body mass index (BMI) [Ratio] 30.5 kg/m2 30.5 k g/m2 [facility] ([facility]) Systolic blood pressure 119 mm[Hg] 119 mm[Hg] A [facility] ([facility]) Body weight 3603.2 [oz_av] 3603.2 [oz_av] ATHEN A ([facility]) Diastolic blood pressure 73 mm[Hg] 73 mm[Hg] HILDA ([facility]) Body height 72 [in_i] 72 [in_i] HILAD ([facility]) Body mass index (BMI) [Ratio] 30.5 kg/m2 30.5 k g/m2 HILDA ([facility]) Systolic blood pressure 119 mm[Hg] 119 mm[Hg] A [facility] ([facility]) Body weight 3603.2 [oz_av] 3603.2 [oz_av] ATHEN A ([facility]) Body mass index (BMI) [Ratio] 30.3 kg/m2 30.3 k g/m2 HILDA ([facility]) Systolic blood pressure 128 mm[Hg] 128 mm[Hg] A [facility] ([facility]) Body mass index (BMI) [Ratio] 30.3 kg/m2 30.3 k g/m2 HILDA ([facility]) Diastolic blood pressure 81 mm[Hg] 81 mm[Hg] HILDA ([facility]) Body height 72 [in_i] 72 [in_i] HILDA ([facility]) Systolic blood pressure 128 mm[Hg] 128 mm[Hg] A [facility] ([facility]) Body weight 3574.4 [oz_av] 3574.4 [oz_av] ATHEN A ([facility]) Diastolic blood pressure 81 mm[Hg] 81 mm[Hg] HILDA ([facility]) Body height 72 [in_i] 72 [in_i] HILDA ([facility]) Body mass index (BMI) [Ratio] 30.3 kg/m2 30.3 k g/m2 HILDA ([facility]) Systolic blood pressure 128 mm[Hg] 128 mm[Hg] A [facility] ([facility]) Body weight 3574.4 [oz_av] 3574.4 [oz_av] ATHEN A ([facility]) Body mass index (BMI) [Ratio] 30.3 kg/m2 30.3 k g/m2 HILDA ([facility]) Diastolic blood pressure 81 mm[Hg] 81 mm[Hg] HILDA ([facility]) Body height 72 [in_i] 72 [in_i] HILDA ([facility]) Systolic blood pressure 128 mm[Hg] 128 mm[Hg] A THENA ([facility]) Body weight 3574.4 [oz_av] 3574.4 [oz_av] ATHEN A ([facility]) Body weight 3574.4 [oz_av] 3574.4 [oz_av] ATHEN A ([facility]) Diastolic blood pressure 81 mm[Hg] 81 mm[Hg] HILDA ([facility]) Body height 72 [in_i] 72 [in_i] HILDA ([facility]) Body mass index (BMI) [Ratio] 30.3 kg/m2 30.3 k g/m2 HILDA ([facility]) Systolic blood pressure 128 mm[Hg] 128 mm[Hg] A [facility] ([facility]) Diastolic blood pressure 81 mm[Hg] 81 mm[Hg] HILDA ([facility]) Body height 72 [in_i] 72 [in_i] HILDA ([facility]) Body mass index (BMI) [Ratio] 30.3 kg/m2 30.3 k g/m2 HILDA ([facility]) Systolic blood pressure 128 mm[Hg] 128 mm[Hg] A THENA ([facility]) Body weight 3574.4 [oz_av] 3574.4 [oz_av] ATHEN A ([facility]) Diastolic blood pressure 81 mm[Hg] 81 mm[Hg] HILDA ([facility]) Body height 72 [in_i] 72 [in_i] HILDA ([facility]) Body mass index (BMI) [Ratio] 30.3 kg/m2 30.3 k g/m2 HILDA ([facility]) Systolic blood pressure 128 mm[Hg] 128 mm[Hg] A LUISA ([facility]) Body weight 3574.4 [oz_av] 3574.4 [oz_av] ATHEN A ([facility]) Diastolic blood pressure 81 mm[Hg] 81 mm[Hg] HILDA ([facility]) Body height 72 [in_i] 72 [in_i] HILDA ([facility]) Body mass index (BMI) [Ratio] 30.3 kg/m2 30.3 k g/m2 HILDA ([facility]) Systolic blood pressure 128 mm[Hg] 128 mm[Hg] A MOIZ ([facility]) Body weight 3574.4 [oz_av] 3574.4 [oz_av] ATHEN A ([facility]) Diastolic blood pressure 81 mm[Hg] 81 mm[Hg] HILDA ([facility]) Body height 72 [in_i] 72 [in_i] HILDA ([facility]) Body mass index (BMI) [Ratio] 30.3 kg/m2 30.3 k g/m2 HILDA ([facility]) Systolic blood pressure 128 mm[Hg] 128 mm[Hg] A MOIZ ([facility]) Body weight 3574.4 [oz_av] 3574.4 [oz_av] ATHEN A ([facility]) Diastolic blood pressure 81 mm[Hg] 81 mm[Hg] HILDA ([facility]) Body height 72 [in_i] 72 [in_i] HILDA ([facility]) Body mass index (BMI) [Ratio] 30.3 kg/m2 30.3 k g/m2 HILDA ([facility]) Systolic blood pressure 128 mm[Hg] 128 mm[Hg] A LUISA ([facility]) Body weight 3574.4 [oz_av] 3574.4 [oz_av] ATHEN A ([facility]) Diastolic blood pressure 81 mm[Hg] 81 mm[Hg] HILDA ([facility]) Body height 72 [in_i] 72 [in_i] HILDA ([facility]) Body mass index (BMI) [Ratio] 30.3 kg/m2 30.3 k g/m2 HILDA ([facility]) Systolic blood pressure 128 mm[Hg] 128 mm[Hg] A [facility] ([facility]) Body weight 3574.4 [oz_av] 3574.4 [oz_av] ATHEN A ([facility]) Diastolic blood pressure 81 mm[Hg] 81 mm[Hg] HILDA ([facility]) Body height 72 [in_i] 72 [in_i] HILDA ([facility]) Body mass index (BMI) [Ratio] 30.3 kg/m2 30.3 k g/m2 HILDA ([facility]) Systolic blood pressure 128 mm[Hg] 128 mm[Hg] A [facility] ([facility]) Body weight 3574.4 [oz_av] 3574.4 [oz_av] ATHEN A ([facility]) Diastolic blood pressure 81 mm[Hg] 81 mm[Hg] HILDA ([facility]) Body height 72 [in_i] 72 [in_i] HILDA ([facility]) Body weight 3574.4 [oz_av] 3574.4 [oz_av] ATHEN A ([facility]) Diastolic blood pressure 81 mm[Hg] 81 mm[Hg] HILDA ([facility]) Body height 72 [in_i] 72 [in_i] HILDA ([facility]) Body mass index (BMI) [Ratio] 30.3 kg/m2 30.3 k g/m2 HILDA ([facility]) Systolic blood pressure 128 mm[Hg] 128 mm[Hg] A [facility] ([facility]) Body weight 3574.4 [oz_av] 3574.4 [oz_av] ATHEN A ([facility]) Diastolic blood pressure 81 mm[Hg] 81 mm[Hg] HILDA ([facility]) Body height 72 [in_i] 72 [in_i] HILDA ([facility]) Body mass index (BMI) [Ratio] 30.3 kg/m2 30.3 k g/m2 HILDA ([facility]) Systolic blood pressure 128 mm[Hg] 128 mm[Hg] A THENA ([facility]) Body weight 3574.4 [oz_av] 3574.4 [oz_av] ATHEN A ([facility]) Diastolic blood pressure 81 mm[Hg] 81 mm[Hg] HILDA ([facility]) Body height 72 [in_i] 72 [in_i] HILDA ([facility]) Body mass index (BMI) [Ratio] 30.3 kg/m2 30.3 k g/m2 HILDA ([facility]) Systolic blood pressure 128 mm[Hg] 128 mm[Hg] A LUISA ([facility]) Body weight 3574.4 [oz_av] 3574.4 [oz_av] ATHEN A ([facility]) Diastolic blood pressure 81 mm[Hg] 81 mm[Hg] HILDA ([facility]) Body height 72 [in_i] 72 [in_i] HILDA ([facility]) Body mass index (BMI) [Ratio] 30.3 kg/m2 30.3 k g/m2 HILDA ([facility]) Systolic blood pressure 128 mm[Hg] 128 mm[Hg] A LUISA ([facility]) Body weight 3574.4 [oz_av] 3574.4 [oz_av] ATHEN A ([facility]) Diastolic blood pressure 81 mm[Hg] 81 mm[Hg] HILDA ([facility]) Body height 72 [in_i] 72 [in_i] HILDA ([facility]) Body mass index (BMI) [Ratio] 30.3 kg/m2 30.3 k g/m2 HILDA ([facility]) Systolic blood pressure 128 mm[Hg] 128 mm[Hg] A THENA ([facility]) Body weight 3574.4 [oz_av] 3574.4 [oz_av] ATHEN A ([facility]) Body mass index (BMI) [Ratio] 30.3 kg/m2 30.3 k g/m2 HILDA ([facility]) Diastolic blood pressure 81 mm[Hg] 81 mm[Hg] HILDA ([facility]) Body height 72 [in_i] 72 [in_i] HILDA ([facility]) Systolic blood pressure 128 mm[Hg] 128 mm[Hg] A LUISA ([facility]) Body weight 3574.4 [oz_av] 3574.4 [oz_av] ATHEN A ([facility]) Diastolic blood pressure 81 mm[Hg] 81 mm[Hg] HILDA ([facility]) Body height 72 [in_i] 72 [in_i] HILDA ([facility]) Body mass index (BMI) [Ratio] 30.3 kg/m2 30.3 k g/m2 HILDA ([facility]) Systolic blood pressure 128 mm[Hg] 128 mm[Hg] A MOIZ ([facility]) Body weight 3574.4 [oz_av] 3574.4 [oz_av] ATHEN A ([facility]) Diastolic blood pressure 81 mm[Hg] 81 mm[Hg] HILDA ([facility]) Body height 72 [in_i] 72 [in_i] HILDA ([facility]) Body mass index (BMI) [Ratio] 30.3 kg/m2 30.3 k g/m2 HILDA ([facility]) Systolic blood pressure 128 mm[Hg] 128 mm[Hg] A MOIZ ([facility]) Body weight 3574.4 [oz_av] 3574.4 [oz_av] ATHEN A ([facility]) Diastolic blood pressure 81 mm[Hg] 81 mm[Hg] HILDA ([facility]) Body height 72 [in_i] 72 [in_i] HILDA ([facility]) Body mass index (BMI) [Ratio] 30.3 kg/m2 30.3 k g/m2 HILDA ([facility]) Systolic blood pressure 128 mm[Hg] 128 mm[Hg] A LUISA ([facility]) Body weight 3574.4 [oz_av] 3574.4 [oz_av] ATHEN A ([facility]) Diastolic blood pressure 81 mm[Hg] 81 mm[Hg] HILDA ([facility]) Body height 72 [in_i] 72 [in_i] HILDA ([facility]) Body mass index (BMI) [Ratio] 30.3 kg/m2 30.3 k g/m2 HILDA ([facility]) Systolic blood pressure 128 mm[Hg] 128 mm[Hg] A [facility] ([facility]) Body weight 3574.4 [oz_av] 3574.4 [oz_av] ATHEN A ([facility]) Diastolic blood pressure 81 mm[Hg] 81 mm[Hg] HILDA ([facility]) Body height 72 [in_i] 72 [in_i] HILDA ([facility]) Body mass index (BMI) [Ratio] 30.3 kg/m2 30.3 k g/m2 HILDA ([facility]) Systolic blood pressure 128 mm[Hg] 128 mm[Hg] A [facility] ([facility]) Body weight 3574.4 [oz_av] 3574.4 [oz_av] ATHEN A ([facility]) Diastolic blood pressure 82 mm[Hg] 82 mm[Hg] HILDA ([facility]) Diastolic blood pressure 81 mm[Hg] 81 mm[Hg] HILDA ([facility]) Body height 72 [in_i] 72 [in_i] HILDA ([facility]) Body mass index (BMI) [Ratio] 30.5 kg/m2 30.5 k g/m2 HILDA ([facility]) Systolic blood pressure 127 mm[Hg] 127 mm[Hg] A [facility] ([facility]) Systolic blood pressure 145 mm[Hg] 145 mm[Hg] A THENA ([facility]) Body weight 3596.8 [oz_av] 3596.8 [oz_av] ATHEN A ([facility]) Diastolic blood pressure 82 mm[Hg] 82 mm[Hg] HILDA ([facility]) Diastolic blood pressure 81 mm[Hg] 81 mm[Hg] HILDA ([facility]) Body height 72 [in_i] 72 [in_i] HILDA ([facility]) Body mass index (BMI) [Ratio] 30.5 kg/m2 30.5 k g/m2 HILDA ([facility]) Systolic blood pressure 127 mm[Hg] 127 mm[Hg] A [facility] ([facility]) Systolic blood pressure 145 mm[Hg] 145 mm[Hg] A THENA ([facility]) Body weight 3596.8 [oz_av] 3596.8 [oz_av] ATHEN A ([facility]) Diastolic blood pressure 82 mm[Hg] 82 mm[Hg] HILDA ([facility]) Diastolic blood pressure 81 mm[Hg] 81 mm[Hg] HILDA ([facility]) Body height 72 [in_i] 72 [in_i] HILDA ([facility]) Body mass index (BMI) [Ratio] 30.5 kg/m2 30.5 k g/m2 HILDA ([facility]) Systolic blood pressure 127 mm[Hg] 127 mm[Hg] A [facility] ([facility]) Systolic blood pressure 145 mm[Hg] 145 mm[Hg] A [facility] ([facility]) Body weight 3596.8 [oz_av] 3596.8 [oz_av] ATHEN A ([facility]) Diastolic blood pressure 82 mm[Hg] 82 mm[Hg] HILDA ([facility]) Diastolic blood pressure 81 mm[Hg] 81 mm[Hg] HILDA ([facility]) Body height 72 [in_i] 72 [in_i] HILDA ([facility]) Body mass index (BMI) [Ratio] 30.5 kg/m2 30.5 k g/m2 HILDA ([facility]) Systolic blood pressure 127 mm[Hg] 127 mm[Hg] A THENA ([facility]) Systolic blood pressure 145 mm[Hg] 145 mm[Hg] A THENA ([facility]) Body weight 3596.8 [oz_av] 3596.8 [oz_av] ATHEN A ([facility]) Diastolic blood pressure 82 mm[Hg] 82 mm[Hg] HILDA ([facility]) Diastolic blood pressure 81 mm[Hg] 81 mm[Hg] HILDA ([facility]) Body height 72 [in_i] 72 [in_i] HILDA ([facility]) Body mass index (BMI) [Ratio] 30.5 kg/m2 30.5 k g/m2 HILDA ([facility]) Systolic blood pressure 127 mm[Hg] 127 mm[Hg] A THENA ([facility]) Systolic blood pressure 145 mm[Hg] 145 mm[Hg] A THENA ([facility]) Body weight 3596.8 [oz_av] 3596.8 [oz_av] ATHEN A ([facility]) Diastolic blood pressure 82 mm[Hg] 82 mm[Hg] HILDA ([facility]) Diastolic blood pressure 81 mm[Hg] 81 mm[Hg] HILDA ([facility]) Body height 72 [in_i] 72 [in_i] HILDA ([facility]) Body mass index (BMI) [Ratio] 30.5 kg/m2 30.5 k g/m2 HILDA ([facility]) Systolic blood pressure 127 mm[Hg] 127 mm[Hg] A [facility] ([facility]) Systolic blood pressure 145 mm[Hg] 145 mm[Hg] A [facility] ([facility]) Body weight 3596.8 [oz_av] 3596.8 [oz_av] ATHEN A ([facility]) Diastolic blood pressure 82 mm[Hg] 82 mm[Hg] HILDA ([facility]) Diastolic blood pressure 81 mm[Hg] 81 mm[Hg] HILDA ([facility]) Body height 72 [in_i] 72 [in_i] HILDA ([facility]) Body mass index (BMI) [Ratio] 30.5 kg/m2 30.5 k g/m2 HILDA ([facility]) Systolic blood pressure 127 mm[Hg] 127 mm[Hg] A THENA ([facility]) Systolic blood pressure 145 mm[Hg] 145 mm[Hg] A THENA ([facility]) Body weight 3596.8 [oz_av] 3596.8 [oz_av] ATHEN A ([facility]) Diastolic blood pressure 82 mm[Hg] 82 mm[Hg] HILDA ([facility]) Diastolic blood pressure 81 mm[Hg] 81 mm[Hg] HILDA ([facility]) Body height 72 [in_i] 72 [in_i] HILDA ([facility]) Body mass index (BMI) [Ratio] 30.5 kg/m2 30.5 k g/m2 HILDA ([facility]) Systolic blood pressure 127 mm[Hg] 127 mm[Hg] A [facility] ([facility]) Systolic blood pressure 145 mm[Hg] 145 mm[Hg] A [facility] ([facility]) Body weight 3596.8 [oz_av] 3596.8 [oz_av] ATHEN A ([facility]) Systolic blood pressure 145 mm[Hg] 145 mm[Hg] A [facility] ([facility]) Diastolic blood pressure 82 mm[Hg] 82 mm[Hg] HILDA ([facility]) Diastolic blood pressure 81 mm[Hg] 81 mm[Hg] HILDA ([facility]) Body height 72 [in_i] 72 [in_i] HILDA ([facility]) Body mass index (BMI) [Ratio] 30.5 kg/m2 30.5 k g/m2 HILDA ([facility]) Systolic blood pressure 127 mm[Hg] 127 mm[Hg] A THENA ([facility]) Body weight 3596.8 [oz_av] 3596.8 [oz_av] ATHEN A ([facility]) Diastolic blood pressure 81 mm[Hg] 81 mm[Hg] HILDA ([facility]) Body height 72 [in_i] 72 [in_i] HILDA ([facility]) Body mass index (BMI) [Ratio] 30.5 kg/m2 30.5 k g/m2 HILDA ([facility]) Systolic blood pressure 127 mm[Hg] 127 mm[Hg] A THENA ([facility]) Systolic blood pressure 145 mm[Hg] 145 mm[Hg] A THENA ([facility]) Body weight 3596.8 [oz_av] 3596.8 [oz_av] ATHEN A ([facility]) Diastolic blood pressure 82 mm[Hg] 82 mm[Hg] HILDA ([facility]) Diastolic blood pressure 81 mm[Hg] 81 mm[Hg] HILDA ([facility]) Body height 72 [in_i] 72 [in_i] HILDA ([facility]) Body mass index (BMI) [Ratio] 30.5 kg/m2 30.5 k g/m2 HILDA ([facility]) Systolic blood pressure 127 mm[Hg] 127 mm[Hg] A THENA ([facility]) Systolic blood pressure 145 mm[Hg] 145 mm[Hg] A [facility] ([facility]) Body weight 3596.8 [oz_av] 3596.8 [oz_av] ATHEN A ([facility]) Diastolic blood pressure 82 mm[Hg] 82 mm[Hg] HILDA ([facility]) Diastolic blood pressure 82 mm[Hg] 82 mm[Hg] HILDA ([facility]) Diastolic blood pressure 81 mm[Hg] 81 mm[Hg] HILDA ([facility]) Body height 72 [in_i] 72 [in_i] HILDA ([facility]) Body mass index (BMI) [Ratio] 30.5 kg/m2 30.5 k g/m2 HILDA ([facility]) Systolic blood pressure 127 mm[Hg] 127 mm[Hg] A THENA ([facility]) Systolic blood pressure 145 mm[Hg] 145 mm[Hg] A [facility] ([facility]) Body weight 3596.8 [oz_av] 3596.8 [oz_av] ATHEN A ([facility]) Diastolic blood pressure 82 mm[Hg] 82 mm[Hg] HILDA ([facility]) Diastolic blood pressure 81 mm[Hg] 81 mm[Hg] HILDA ([facility]) Body height 72 [in_i] 72 [in_i] HILDA ([facility]) Diastolic blood pressure 82 mm[Hg] 82 mm[Hg] HILDA ([facility]) Diastolic blood pressure 81 mm[Hg] 81 mm[Hg] HILDA ([facility]) Body height 72 [in_i] 72 [in_i] HILDA ([facility]) Body mass index (BMI) [Ratio] 30.5 kg/m2 30.5 k g/m2 HILDA ([facility]) Systolic blood pressure 127 mm[Hg] 127 mm[Hg] A THENA ([facility]) Systolic blood pressure 145 mm[Hg] 145 mm[Hg] A THENA ([facility]) Body weight 3596.8 [oz_av] 3596.8 [oz_av] ATHEN A ([facility]) Body mass index (BMI) [Ratio] 30.5 kg/m2 30.5 k g/m2 HILDA ([facility]) Systolic blood pressure 127 mm[Hg] 127 mm[Hg] A THENA ([facility]) Systolic blood pressure 145 mm[Hg] 145 mm[Hg] A THENA ([facility]) Body weight 3596.8 [oz_av] 3596.8 [oz_av] ATHEN A ([facility]) Diastolic blood pressure 82 mm[Hg] 82 mm[Hg] HILDA ([facility]) Diastolic blood pressure 81 mm[Hg] 81 mm[Hg] HILDA ([facility]) Body height 72 [in_i] 72 [in_i] HILDA ([facility]) Body mass index (BMI) [Ratio] 30.5 kg/m2 30.5 k g/m2 HILDA ([facility]) Systolic blood pressure 127 mm[Hg] 127 mm[Hg] A THENA ([facility]) Systolic blood pressure 145 mm[Hg] 145 mm[Hg] A THENA ([facility]) Body weight 3596.8 [oz_av] 3596.8 [oz_av] ATHEN A ([facility]) Diastolic blood pressure 82 mm[Hg] 82 mm[Hg] HILDA ([facility]) Diastolic blood pressure 81 mm[Hg] 81 mm[Hg] HILDA ([facility]) Body height 72 [in_i] 72 [in_i] HILDA ([facility]) Body mass index (BMI) [Ratio] 30.5 kg/m2 30.5 k g/m2 HILDA ([facility]) Systolic blood pressure 127 mm[Hg] 127 mm[Hg] A THENA ([facility]) Systolic blood pressure 145 mm[Hg] 145 mm[Hg] A THENA ([facility]) Body weight 3596.8 [oz_av] 3596.8 [oz_av] ATHEN A ([facility]) Diastolic blood pressure 82 mm[Hg] 82 mm[Hg] HILDA ([facility]) Diastolic blood pressure 81 mm[Hg] 81 mm[Hg] HILDA ([facility]) Body height 72 [in_i] 72 [in_i] HILDA ([facility]) Body mass index (BMI) [Ratio] 30.5 kg/m2 30.5 k g/m2 HILDA ([facility]) Systolic blood pressure 127 mm[Hg] 127 mm[Hg] A THENA ([facility]) Systolic blood pressure 145 mm[Hg] 145 mm[Hg] A [facility] ([facility]) Body weight 3596.8 [oz_av] 3596.8 [oz_av] ATHEN A ([facility]) Diastolic blood pressure 82 mm[Hg] 82 mm[Hg] HILDA ([facility]) Diastolic blood pressure 81 mm[Hg] 81 mm[Hg] HILDA ([facility]) Body height 72 [in_i] 72 [in_i] HILDA ([facility]) Body mass index (BMI) [Ratio] 30.5 kg/m2 30.5 k g/m2 HILDA ([facility]) Systolic blood pressure 127 mm[Hg] 127 mm[Hg] A THENA ([facility]) Systolic blood pressure 145 mm[Hg] 145 mm[Hg] A [facility] ([facility]) Body weight 3596.8 [oz_av] 3596.8 [oz_av] ATHEN A ([facility]) Diastolic blood pressure 82 mm[Hg] 82 mm[Hg] HILDA ([facility]) Diastolic blood pressure 81 mm[Hg] 81 mm[Hg] HILDA ([facility]) Body height 72 [in_i] 72 [in_i] HILDA ([facility]) Body mass index (BMI) [Ratio] 30.5 kg/m2 30.5 k g/m2 HILDA ([facility]) Systolic blood pressure 127 mm[Hg] 127 mm[Hg] A THENA ([facility]) Systolic blood pressure 145 mm[Hg] 145 mm[Hg] A THENA ([facility]) Body weight 3596.8 [oz_av] 3596.8 [oz_av] ATHEN A ([facility]) Body height 72 [in_i] 72 [in_i] HILDA ([facility]) Diastolic blood pressure 82 mm[Hg] 82 mm[Hg] HILDA ([facility]) Diastolic blood pressure 81 mm[Hg] 81 mm[Hg] HILDA ([facility]) Body mass index (BMI) [Ratio] 30.5 kg/m2 30.5 k g/m2 HILDA ([facility]) Systolic blood pressure 127 mm[Hg] 127 mm[Hg] A THENA ([facility]) Systolic blood pressure 145 mm[Hg] 145 mm[Hg] A [facility] ([facility]) Body weight 3596.8 [oz_av] 3596.8 [oz_av] ATHEN A ([facility]) Diastolic blood pressure 82 mm[Hg] 82 mm[Hg] HILDA ([facility]) Diastolic blood pressure 81 mm[Hg] 81 mm[Hg] HILDA ([facility]) Body height 72 [in_i] 72 [in_i] HILDA ([facility]) Body mass index (BMI) [Ratio] 30.5 kg/m2 30.5 k g/m2 HILDA ([facility]) Systolic blood pressure 127 mm[Hg] 127 mm[Hg] A THENA ([facility]) Systolic blood pressure 145 mm[Hg] 145 mm[Hg] A [facility] ([facility]) Body weight 3596.8 [oz_av] 3596.8 [oz_av] ATHEN A ([facility]) Systolic blood pressure 127 mm[Hg] 127 mm[Hg] A THENA ([facility]) Systolic blood pressure 145 mm[Hg] 145 mm[Hg] A THENA ([facility]) Body weight 3596.8 [oz_av] 3596.8 [oz_av] ATHEN A ([facility]) Diastolic blood pressure 82 mm[Hg] 82 mm[Hg] IHLDA ([facility]) Diastolic blood pressure 81 mm[Hg] 81 mm[Hg] HILDA ([facility]) Body height 72 [in_i] 72 [in_i] HILDA ([facility]) Body mass index (BMI) [Ratio] 30.5 kg/m2 30.5 k g/m2 HILDA ([facility]) Diastolic blood pressure 82 mm[Hg] 82 mm[Hg] HILDA ([facility]) Diastolic blood pressure 81 mm[Hg] 81 mm[Hg] HILDA ([facility]) Body height 72 [in_i] 72 [in_i] HILDA ([facility]) Body mass index (BMI) [Ratio] 30.5 kg/m2 30.5 k g/m2 HILDA ([facility]) Systolic blood pressure 127 mm[Hg] 127 mm[Hg] A [facility] ([facility]) Systolic blood pressure 145 mm[Hg] 145 mm[Hg] A [facility] ([facility]) Body weight 3596.8 [oz_av] 3596.8 [oz_av] ATHEN A ([facility]) Diastolic blood pressure 82 mm[Hg] 82 mm[Hg] HILDA ([facility]) Diastolic blood pressure 81 mm[Hg] 81 mm[Hg] HILDA ([facility]) Body height 72 [in_i] 72 [in_i] HILDA ([facility]) Body mass index (BMI) [Ratio] 30.5 kg/m2 30.5 k g/m2 HILDA ([facility]) Systolic blood pressure 127 mm[Hg] 127 mm[Hg] A THENA ([facility]) Systolic blood pressure 145 mm[Hg] 145 mm[Hg] A THENA ([facility]) Body weight 3596.8 [oz_av] 3596.8 [oz_av] ATHEN A ([facility]) Diastolic blood pressure 82 mm[Hg] 82 mm[Hg] HILDA ([facility]) Diastolic blood pressure 81 mm[Hg] 81 mm[Hg] HILDA ([facility]) Body height 72 [in_i] 72 [in_i] HILDA ([facility]) Body mass index (BMI) [Ratio] 30.5 kg/m2 30.5 k g/m2 HILDA ([facility]) Systolic blood pressure 127 mm[Hg] 127 mm[Hg] A THENA ([facility]) Systolic blood pressure 145 mm[Hg] 145 mm[Hg] A THENA ([facility]) Body weight 3596.8 [oz_av] 3596.8 [oz_av] ATHEN A ([facility]) Diastolic blood pressure 82 mm[Hg] 82 mm[Hg] HILDA ([facility]) Diastolic blood pressure 81 mm[Hg] 81 mm[Hg] HILDA ([facility]) Body height 72 [in_i] 72 [in_i] HILDA ([facility]) Body mass index (BMI) [Ratio] 30.5 kg/m2 30.5 k g/m2 HILDA ([facility]) Systolic blood pressure 127 mm[Hg] 127 mm[Hg] A [facility] ([facility]) Systolic blood pressure 145 mm[Hg] 145 mm[Hg] A [facility] ([facility]) Body weight 3596.8 [oz_av] 3596.8 [oz_av] ATHEN A ([facility]) Diastolic blood pressure 82 mm[Hg] 82 mm[Hg] HILDA ([facility]) Diastolic blood pressure 81 mm[Hg] 81 mm[Hg] HILDA ([facility]) Body height 72 [in_i] 72 [in_i] HILDA ([facility]) Body mass index (BMI) [Ratio] 30.5 kg/m2 30.5 k g/m2 HILDA ([facility]) Systolic blood pressure 127 mm[Hg] 127 mm[Hg] A THENA ([facility]) Systolic blood pressure 145 mm[Hg] 145 mm[Hg] A THENA ([facility]) Body weight 3596.8 [oz_av] 3596.8 [oz_av] ATHEN A ([facility]) Respiratory rate 16 /min 16 /min RANGEL ( [facility]) Body weight 222.00 [lb_av] 222.00 [lb_av] CELESTINO Keys ([facility]) Body height 72 [in_i] 72 [in_i] RANGEL ([facility]) 6'0" Body mass index (BMI) [Ratio] 30.1 kg/m2 30.1 k g/m2 MEDENT ([facility]) Heart rate 52 /min 52 /min MEDENT ([facility]) regular Systolic blood pressure--sitting 108 mm[Hg] 108 mm[Hg] MEDENT ([facility]) large cuff, Ra; 110/72 LA Diastolic blood pressure--sitting 68 mm[Hg] 68 mm[Hg] MEDENT ([facility]) large cuff, Ra; 110/72 LA Systolic blood pressure--supine 108 mm[Hg] 108 mm[Hg] MEDENT ([facility]) Ra Diastolic blood pressure--supine 68 mm[Hg] 68 mm[Hg] MEDENT ([facility]) Ra Diastolic blood pressure 81 mm[Hg] 81 mm[Hg] HILDA ([facility]) Systolic blood pressure 120 mm[Hg] 120 mm[Hg] A [facility] ([facility]) Body weight 3568 [oz_av] 3568 [oz_av] HILDA ([facility]) Body height 72 [in_i] 72 [in_i] BROOKINGS ([facility]) Body mass index (BMI) [Ratio] 30.2 kg/m2 30.2 k g/m2 HILDA ([facility]) Body weight 3568 [oz_av] 3568 [oz_av] HILDA ([facility]) Systolic blood pressure 120 mm[Hg] 120 mm[Hg] A [facility] ([facility]) Diastolic blood pressure 81 mm[Hg] 81 mm[Hg] HILDA ([facility]) Body height 72 [in_i] 72 [in_i] HILDA ([facility]) Body mass index (BMI) [Ratio] 30.2 kg/m2 30.2 k g/m2 HILDA ([facility]) Diastolic blood pressure 81 mm[Hg] 81 mm[Hg] HILDA ([facility]) Body height 72 [in_i] 72 [in_i] HILDA ([facility]) Body mass index (BMI) [Ratio] 30.2 kg/m2 30.2 k g/m2 HILDA ([facility]) Systolic blood pressure 120 mm[Hg] 120 mm[Hg] A [facility] ([facility]) Body weight 3568 [oz_av] 3568 [oz_av] HILDA ([facility]) Diastolic blood pressure 81 mm[Hg] 81 mm[Hg] HILDA ([facility]) Body height 72 [in_i] 72 [in_i] HILDA ([facility]) Body mass index (BMI) [Ratio] 30.2 kg/m2 30.2 k g/m2 HILDA ([facility]) Systolic blood pressure 120 mm[Hg] 120 mm[Hg] A THENA ([facility]) Body weight 3568 [oz_av] 3568 [oz_av] HILDA ([facility]) Diastolic blood pressure 81 mm[Hg] 81 mm[Hg] HILDA ([facility]) Body height 72 [in_i] 72 [in_i] HILDA ([facility]) Body mass index (BMI) [Ratio] 30.2 kg/m2 30.2 k g/m2 HILDA ([facility]) Systolic blood pressure 120 mm[Hg] 120 mm[Hg] A THENA ([facility]) Body weight 3568 [oz_av] 3568 [oz_av] HILDA ([facility]) Diastolic blood pressure 81 mm[Hg] 81 mm[Hg] HILDA ([facility]) Body height 72 [in_i] 72 [in_i] HILDA ([facility]) Body mass index (BMI) [Ratio] 30.2 kg/m2 30.2 k g/m2 HILDA ([facility]) Systolic blood pressure 120 mm[Hg] 120 mm[Hg] A THENA ([facility]) Body weight 3568 [oz_av] 3568 [oz_av] HILDA ([facility]) Body weight 3568 [oz_av] 3568 [oz_av] HILDA ([facility]) Diastolic blood pressure 81 mm[Hg] 81 mm[Hg] HILDA ([facility]) Body height 72 [in_i] 72 [in_i] HILDA ([facility]) Body mass index (BMI) [Ratio] 30.2 kg/m2 30.2 k g/m2 HILDA ([facility]) Systolic blood pressure 120 mm[Hg] 120 mm[Hg] A [facility] ([facility]) Diastolic blood pressure 81 mm[Hg] 81 mm[Hg] HILDA ([facility]) Body height 72 [in_i] 72 [in_i] HILDA ([facility]) Body mass index (BMI) [Ratio] 30.2 kg/m2 30.2 k g/m2 HILDA ([facility]) Systolic blood pressure 120 mm[Hg] 120 mm[Hg] A THENA ([facility]) Body weight 3568 [oz_av] 3568 [oz_av] HILDA ([facility]) Body weight 3568 [oz_av] 3568 [oz_av] HILDA ([facility]) Diastolic blood pressure 81 mm[Hg] 81 mm[Hg] HILDA ([facility]) Body height 72 [in_i] 72 [in_i] HILDA ([facility]) Body mass index (BMI) [Ratio] 30.2 kg/m2 30.2 k g/m2 HILDA ([facility]) Systolic blood pressure 120 mm[Hg] 120 mm[Hg] A [facility] ([facility]) Diastolic blood pressure 81 mm[Hg] 81 mm[Hg] HILDA ([facility]) Body height 72 [in_i] 72 [in_i] HILDA ([facility]) Body mass index (BMI) [Ratio] 30.2 kg/m2 30.2 k g/m2 HILDA ([facility]) Systolic blood pressure 120 mm[Hg] 120 mm[Hg] A THENA ([facility]) Body weight 3568 [oz_av] 3568 [oz_av] HILDA ([facility]) Diastolic blood pressure 81 mm[Hg] 81 mm[Hg] HILDA ([facility]) Body height 72 [in_i] 72 [in_i] HILDA ([facility]) Body mass index (BMI) [Ratio] 30.2 kg/m2 30.2 k g/m2 HILDA ([facility]) Systolic blood pressure 120 mm[Hg] 120 mm[Hg] A THENA ([facility]) Body weight 3568 [oz_av] 3568 [oz_av] HILDA ([facility]) Diastolic blood pressure 81 mm[Hg] 81 mm[Hg] HILDA ([facility]) Body height 72 [in_i] 72 [in_i] HILDA ([facility]) Body mass index (BMI) [Ratio] 30.2 kg/m2 30.2 k g/m2 HILDA ([facility]) Systolic blood pressure 120 mm[Hg] 120 mm[Hg] A THENA ([facility]) Body weight 3568 [oz_av] 3568 [oz_av] HILDA ([facility]) Diastolic blood pressure 81 mm[Hg] 81 mm[Hg] HILDA ([facility]) Body height 72 [in_i] 72 [in_i] HILDA ([facility]) Body mass index (BMI) [Ratio] 30.2 kg/m2 30.2 k g/m2 HILDA ([facility]) Systolic blood pressure 120 mm[Hg] 120 mm[Hg] A THENA ([facility]) Body weight 3568 [oz_av] 3568 [oz_av] HILDA ([facility]) Diastolic blood pressure 81 mm[Hg] 81 mm[Hg] HILDA ([facility]) Body height 72 [in_i] 72 [in_i] HILDA ([facility]) Body mass index (BMI) [Ratio] 30.2 kg/m2 30.2 k g/m2 HILDA ([facility]) Systolic blood pressure 120 mm[Hg] 120 mm[Hg] A THENA ([facility]) Body weight 3568 [oz_av] 3568 [oz_av] HILDA ([facility]) Body weight 3568 [oz_av] 3568 [oz_av] HILDA ([facility]) Diastolic blood pressure 81 mm[Hg] 81 mm[Hg] HILDA ([facility]) Body height 72 [in_i] 72 [in_i] HILDA ([facility]) Body mass index (BMI) [Ratio] 30.2 kg/m2 30.2 k g/m2 HILDA ([facility]) Systolic blood pressure 120 mm[Hg] 120 mm[Hg] A [facility] ([facility]) Diastolic blood pressure 81 mm[Hg] 81 mm[Hg] HILDA ([facility]) Body height 72 [in_i] 72 [in_i] HILDA ([facility]) Body mass index (BMI) [Ratio] 30.2 kg/m2 30.2 k g/m2 HILDA ([facility]) Systolic blood pressure 120 mm[Hg] 120 mm[Hg] A THENA ([facility]) Body weight 3568 [oz_av] 3568 [oz_av] HILDA ([facility]) Diastolic blood pressure 81 mm[Hg] 81 mm[Hg] HILDA ([facility]) Body height 72 [in_i] 72 [in_i] HILDA ([facility]) Body mass index (BMI) [Ratio] 30.2 kg/m2 30.2 k g/m2 HILDA ([facility]) Systolic blood pressure 120 mm[Hg] 120 mm[Hg] A THENA ([facility]) Body weight 3568 [oz_av] 3568 [oz_av] HILDA ([facility]) Diastolic blood pressure 81 mm[Hg] 81 mm[Hg] HILDA ([facility]) Body height 72 [in_i] 72 [in_i] HILDA ([facility]) Body mass index (BMI) [Ratio] 30.2 kg/m2 30.2 k g/m2 HILDA ([facility]) Systolic blood pressure 120 mm[Hg] 120 mm[Hg] A THENA ([facility]) Body weight 3568 [oz_av] 3568 [oz_av] HILDA ([facility]) Diastolic blood pressure 81 mm[Hg] 81 mm[Hg] HILDA ([facility]) Body height 72 [in_i] 72 [in_i] HILDA ([facility]) Body mass index (BMI) [Ratio] 30.2 kg/m2 30.2 k g/m2 HILDA ([facility]) Systolic blood pressure 120 mm[Hg] 120 mm[Hg] A THENA ([facility]) Body weight 3568 [oz_av] 3568 [oz_av] HILDA ([facility]) Diastolic blood pressure 81 mm[Hg] 81 mm[Hg] HILDA ([facility]) Body height 72 [in_i] 72 [in_i] HILDA ([facility]) Body mass index (BMI) [Ratio] 30.2 kg/m2 30.2 k g/m2 HILDA ([facility]) Diastolic blood pressure 81 mm[Hg] 81 mm[Hg] HILDA ([facility]) Body height 72 [in_i] 72 [in_i] HILDA ([facility]) Body mass index (BMI) [Ratio] 30.2 kg/m2 30.2 k g/m2 HILDA ([facility]) Systolic blood pressure 120 mm[Hg] 120 mm[Hg] A [facility] ([facility]) Body weight 3568 [oz_av] 3568 [oz_av] HILDA ([facility]) Systolic blood pressure 120 mm[Hg] 120 mm[Hg] A [facility] ([facility]) Body weight 3568 [oz_av] 3568 [oz_av] HILDA ([facility]) Diastolic blood pressure 81 mm[Hg] 81 mm[Hg] HILDA ([facility]) Body height 72 [in_i] 72 [in_i] HILDA ([facility]) Body mass index (BMI) [Ratio] 30.2 kg/m2 30.2 k g/m2 HILDA ([facility]) Systolic blood pressure 120 mm[Hg] 120 mm[Hg] A [facility] ([facility]) Body weight 3568 [oz_av] 3568 [oz_av] HILDA ([facility]) Diastolic blood pressure 81 mm[Hg] 81 mm[Hg] HILDA ([facility]) Body height 72 [in_i] 72 [in_i] HILDA ([facility]) Body mass index (BMI) [Ratio] 30.2 kg/m2 30.2 k g/m2 HILDA ([facility]) Systolic blood pressure 120 mm[Hg] 120 mm[Hg] A [facility] ([facility]) Body weight 3568 [oz_av] 3568 [oz_av] HILDA ([facility]) Diastolic blood pressure 81 mm[Hg] 81 mm[Hg] HILDA ([facility]) Body height 72 [in_i] 72 [in_i] HILDA ([facility]) Body mass index (BMI) [Ratio] 30.2 kg/m2 30.2 k g/m2 HILDA ([facility]) Systolic blood pressure 120 mm[Hg] 120 mm[Hg] A [facility] ([facility]) Body weight 3568 [oz_av] 3568 [oz_av] HILDA ([facility]) Diastolic blood pressure 81 mm[Hg] 81 mm[Hg] HILDA ([facility]) Body height 72 [in_i] 72 [in_i] HILDA ([facility]) Body mass index (BMI) [Ratio] 30.2 kg/m2 30.2 k g/m2 HILDA ([facility]) Systolic blood pressure 120 mm[Hg] 120 mm[Hg] A [facility] ([facility]) Body weight 3568 [oz_av] 3568 [oz_av] HILDA ([facility]) Systolic blood pressure 120 mm[Hg] 120 mm[Hg] A THENA ([facility]) Body weight 3568 [oz_av] 3568 [oz_av] HILDA ([facility]) Diastolic blood pressure 81 mm[Hg] 81 mm[Hg] HILDA ([facility]) Body height 72 [in_i] 72 [in_i] HILDA ([facility]) Body mass index (BMI) [Ratio] 30.2 kg/m2 30.2 k g/m2 HILDA ([facility]) Body mass index (BMI) [Ratio] 30.2 kg/m2 30.2 k g/m2 HILDA ([facility]) Systolic blood pressure 120 mm[Hg] 120 mm[Hg] A THENA ([facility]) Body weight 3568 [oz_av] 3568 [oz_av] HILDA ([facility]) Diastolic blood pressure 81 mm[Hg] 81 mm[Hg] HILDA ([facility]) Body height 72 [in_i] 72 [in_i] HILDA ([facility]) Diastolic blood pressure 81 mm[Hg] 81 mm[Hg] HILDA ([facility]) Body height 72 [in_i] 72 [in_i] HILDA ([facility]) Body mass index (BMI) [Ratio] 30.2 kg/m2 30.2 k g/m2 HILDA ([facility]) Systolic blood pressure 120 mm[Hg] 120 mm[Hg] A [facility] ([facility]) Body weight 3568 [oz_av] 3568 [oz_av] HILDA ([facility]) Diastolic blood pressure 81 mm[Hg] 81 mm[Hg] HILDA ([facility]) Body height 72 [in_i] 72 [in_i] HILDA ([facility]) Body mass index (BMI) [Ratio] 30.2 kg/m2 30.2 k g/m2 HILDA ([facility]) Systolic blood pressure 120 mm[Hg] 120 mm[Hg] A [facility] ([facility]) Body weight 3568 [oz_av] 3568 [oz_av] HILDA ([facility]) Diastolic blood pressure 81 mm[Hg] 81 mm[Hg] HILDA ([facility]) Body height 72 [in_i] 72 [in_i] HILDA ([facility]) Body mass index (BMI) [Ratio] 30.2 kg/m2 30.2 k g/m2 HILDA ([facility]) Systolic blood pressure 120 mm[Hg] 120 mm[Hg] A THENA ([facility]) Body weight 3568 [oz_av] 3568 [oz_av] HILDA ([facility]) Diastolic blood pressure 81 mm[Hg] 81 mm[Hg] HILDA ([facility]) Body height 72 [in_i] 72 [in_i] HILDA ([facility]) Body mass index (BMI) [Ratio] 30.2 kg/m2 30.2 k g/m2 HILDA ([facility]) Systolic blood pressure 120 mm[Hg] 120 mm[Hg] A [facility] ([facility]) Body weight 3568 [oz_av] 3568 [oz_av] HILDA ([facility]) Diastolic blood pressure 81 mm[Hg] 81 mm[Hg] HILDA ([facility]) Body height 72 [in_i] 72 [in_i] HILDA ([facility]) Body mass index (BMI) [Ratio] 30.2 kg/m2 30.2 k g/m2 HILDA ([facility]) Systolic blood pressure 120 mm[Hg] 120 mm[Hg] A THENA ([facility]) Body weight 3568 [oz_av] 3568 [oz_av] HILDA ([facility]) Diastolic blood pressure 81 mm[Hg] 81 mm[Hg] HILDA ([facility]) Body height 72 [in_i] 72 [in_i] HILDA ([facility]) Body mass index (BMI) [Ratio] 30.2 kg/m2 30.2 k g/m2 HILDA ([facility]) Systolic blood pressure 120 mm[Hg] 120 mm[Hg] A THENA ([facility]) Body weight 3568 [oz_av] 3568 [oz_av] HILDA ([facility]) Diastolic blood pressure 86 mm[Hg] 86 mm[Hg] HILDA ([facility]) Body height 72 [in_i] 72 [in_i] HILDA ([facility]) Body weight 3587.2 [oz_av] 3587.2 [oz_av] ATHEN A ([facility]) Body mass index (BMI) [Ratio] 30.4 kg/m2 30.4 k g/m2 HILDA ([facility]) Systolic blood pressure 130 mm[Hg] 130 mm[Hg] A THENA ([facility]) Diastolic blood pressure 86 mm[Hg] 86 mm[Hg] HILDA ([facility]) Body height 72 [in_i] 72 [in_i] HILDA ([facility]) Body mass index (BMI) [Ratio] 30.4 kg/m2 30.4 k g/m2 HILDA ([facility]) Systolic blood pressure 130 mm[Hg] 130 mm[Hg] A THENA ([facility]) Body weight 3587.2 [oz_av] 3587.2 [oz_av] ATHEN A ([facility]) Diastolic blood pressure 86 mm[Hg] 86 mm[Hg] HILDA ([facility]) Body height 72 [in_i] 72 [in_i] HILDA ([facility]) Body mass index (BMI) [Ratio] 30.4 kg/m2 30.4 k g/m2 HILDA ([facility]) Systolic blood pressure 130 mm[Hg] 130 mm[Hg] A THENA ([facility]) Body weight 3587.2 [oz_av] 3587.2 [oz_av] ATHEN A ([facility]) Diastolic blood pressure 86 mm[Hg] 86 mm[Hg] HILDA ([facility]) Body height 72 [in_i] 72 [in_i] HILDA ([facility]) Body mass index (BMI) [Ratio] 30.4 kg/m2 30.4 k g/m2 HILDA ([facility]) Systolic blood pressure 130 mm[Hg] 130 mm[Hg] A THENA ([facility]) Body weight 3587.2 [oz_av] 3587.2 [oz_av] ATHEN A ([facility]) Diastolic blood pressure 86 mm[Hg] 86 mm[Hg] HILDA ([facility]) Body mass index (BMI) [Ratio] 30.4 kg/m2 30.4 k g/m2 HILDA ([facility]) Body height 72 [in_i] 72 [in_i] HILDA ([facility]) Systolic blood pressure 130 mm[Hg] 130 mm[Hg] A THENA ([facility]) Body weight 3587.2 [oz_av] 3587.2 [oz_av] ATHEN A ([facility]) Diastolic blood pressure 86 mm[Hg] 86 mm[Hg] HILDA ([facility]) Body height 72 [in_i] 72 [in_i] HILDA ([facility]) Body mass index (BMI) [Ratio] 30.4 kg/m2 30.4 k g/m2 HILDA ([facility]) Systolic blood pressure 130 mm[Hg] 130 mm[Hg] A THENA ([facility]) Body weight 3587.2 [oz_av] 3587.2 [oz_av] ATHEN A ([facility]) Diastolic blood pressure 86 mm[Hg] 86 mm[Hg] HILDA ([facility]) Body height 72 [in_i] 72 [in_i] HILDA ([facility]) Body mass index (BMI) [Ratio] 30.4 kg/m2 30.4 k g/m2 HILDA ([facility]) Systolic blood pressure 130 mm[Hg] 130 mm[Hg] A [facility] ([facility]) Body weight 3587.2 [oz_av] 3587.2 [oz_av] ATHEN A ([facility]) Diastolic blood pressure 86 mm[Hg] 86 mm[Hg] HILDA ([facility]) Body height 72 [in_i] 72 [in_i] HILDA ([facility]) Body mass index (BMI) [Ratio] 30.4 kg/m2 30.4 k g/m2 HILDA ([facility]) Systolic blood pressure 130 mm[Hg] 130 mm[Hg] A THENA ([facility]) Body weight 3587.2 [oz_av] 3587.2 [oz_av] ATHEN A ([facility]) Diastolic blood pressure 86 mm[Hg] 86 mm[Hg] HILDA ([facility]) Body height 72 [in_i] 72 [in_i] HILDA ([facility]) Body mass index (BMI) [Ratio] 30.4 kg/m2 30.4 k g/m2 HILDA ([facility]) Systolic blood pressure 130 mm[Hg] 130 mm[Hg] A THENA ([facility]) Body weight 3587.2 [oz_av] 3587.2 [oz_av] ATHEN A ([facility]) Diastolic blood pressure 86 mm[Hg] 86 mm[Hg] HILDA ([facility]) Body height 72 [in_i] 72 [in_i] HILDA ([facility]) Body mass index (BMI) [Ratio] 30.4 kg/m2 30.4 k g/m2 HILDA ([facility]) Diastolic blood pressure 86 mm[Hg] 86 mm[Hg] HILDA ([facility]) Body height 72 [in_i] 72 [in_i] HILDA ([facility]) Body mass index (BMI) [Ratio] 30.4 kg/m2 30.4 k g/m2 HILDA ([facility]) Systolic blood pressure 130 mm[Hg] 130 mm[Hg] A [facility] ([facility]) Body weight 3587.2 [oz_av] 3587.2 [oz_av] ATHEN A ([facility]) Systolic blood pressure 130 mm[Hg] 130 mm[Hg] A [facility] ([facility]) Body weight 3587.2 [oz_av] 3587.2 [oz_av] ATHEN A ([facility]) Diastolic blood pressure 86 mm[Hg] 86 mm[Hg] HILDA ([facility]) Body height 72 [in_i] 72 [in_i] HILDA ([facility]) Body mass index (BMI) [Ratio] 30.4 kg/m2 30.4 k g/m2 HILDA ([facility]) Systolic blood pressure 130 mm[Hg] 130 mm[Hg] A [facility] ([facility]) Body weight 3587.2 [oz_av] 3587.2 [oz_av] ATHEN A ([facility]) Diastolic blood pressure 86 mm[Hg] 86 mm[Hg] HILDA ([facility]) Body height 72 [in_i] 72 [in_i] HILDA ([facility]) Body mass index (BMI) [Ratio] 30.4 kg/m2 30.4 k g/m2 HILDA ([facility]) Systolic blood pressure 130 mm[Hg] 130 mm[Hg] A [facility] ([facility]) Body weight 3587.2 [oz_av] 3587.2 [oz_av] ATHEN A ([facility]) Diastolic blood pressure 86 mm[Hg] 86 mm[Hg] HILDA ([facility]) Body height 72 [in_i] 72 [in_i] HILDA ([facility]) Body mass index (BMI) [Ratio] 30.4 kg/m2 30.4 k g/m2 HILDA ([facility]) Systolic blood pressure 130 mm[Hg] 130 mm[Hg] A LUISA ([facility]) Body weight 3587.2 [oz_av] 3587.2 [oz_av] ATHEN A ([facility]) Diastolic blood pressure 86 mm[Hg] 86 mm[Hg] HILDA ([facility]) Body height 72 [in_i] 72 [in_i] HILDA ([facility]) Body mass index (BMI) [Ratio] 30.4 kg/m2 30.4 k g/m2 HILDA ([facility]) Systolic blood pressure 130 mm[Hg] 130 mm[Hg] A [facility] ([facility]) Body weight 3587.2 [oz_av] 3587.2 [oz_av] ATHEN A ([facility]) Diastolic blood pressure 86 mm[Hg] 86 mm[Hg] HILDA ([facility]) Body height 72 [in_i] 72 [in_i] HILDA ([facility]) Body mass index (BMI) [Ratio] 30.4 kg/m2 30.4 k g/m2 HILDA ([facility]) Systolic blood pressure 130 mm[Hg] 130 mm[Hg] A MO[facility] ([facility]) Body weight 3587.2 [oz_av] 3587.2 [oz_av] ATHEN A ([facility]) Diastolic blood pressure 86 mm[Hg] 86 mm[Hg] HILDA ([facility]) Body height 72 [in_i] 72 [in_i] HILDA ([facility]) Body mass index (BMI) [Ratio] 30.4 kg/m2 30.4 k g/m2 HILDA ([facility]) Systolic blood pressure 130 mm[Hg] 130 mm[Hg] A [facility] ([facility]) Body weight 3587.2 [oz_av] 3587.2 [oz_av] ATHEN A ([facility]) Diastolic blood pressure 86 mm[Hg] 86 mm[Hg] HILDA ([facility]) Body height 72 [in_i] 72 [in_i] HILDA ([facility]) Body mass index (BMI) [Ratio] 30.4 kg/m2 30.4 k g/m2 HILDA ([facility]) Systolic blood pressure 130 mm[Hg] 130 mm[Hg] A [facility] ([facility]) Body weight 3587.2 [oz_av] 3587.2 [oz_av] ATHEN A ([facility]) Diastolic blood pressure 86 mm[Hg] 86 mm[Hg] HILDA ([facility]) Body height 72 [in_i] 72 [in_i] HILDA ([facility]) Body mass index (BMI) [Ratio] 30.4 kg/m2 30.4 k g/m2 HILDA ([facility]) Systolic blood pressure 130 mm[Hg] 130 mm[Hg] A [facility] ([facility]) Body weight 3587.2 [oz_av] 3587.2 [oz_av] ATHEN A ([facility]) Diastolic blood pressure 86 mm[Hg] 86 mm[Hg] HILDA ([facility]) Body height 72 [in_i] 72 [in_i] HILDA ([facility]) Body mass index (BMI) [Ratio] 30.4 kg/m2 30.4 k g/m2 HILDA ([facility]) Systolic blood pressure 130 mm[Hg] 130 mm[Hg] A [facility] ([facility]) Body weight 3587.2 [oz_av] 3587.2 [oz_av] ATHEN A ([facility]) Diastolic blood pressure 86 mm[Hg] 86 mm[Hg] HILDA ([facility]) Body height 72 [in_i] 72 [in_i] HILDA ([facility]) Body mass index (BMI) [Ratio] 30.4 kg/m2 30.4 k g/m2 HILDA ([facility]) Diastolic blood pressure 86 mm[Hg] 86 mm[Hg] HILDA ([facility]) Body height 72 [in_i] 72 [in_i] HILDA ([facility]) Systolic blood pressure 130 mm[Hg] 130 mm[Hg] A [facility] ([facility]) Body weight 3587.2 [oz_av] 3587.2 [oz_av] ATHEN A ([facility]) Body mass index (BMI) [Ratio] 30.4 kg/m2 30.4 k g/m2 HILDA ([facility]) Systolic blood pressure 130 mm[Hg] 130 mm[Hg] A THENA ([facility]) Body weight 3587.2 [oz_av] 3587.2 [oz_av] ATHEN A ([facility]) Diastolic blood pressure 86 mm[Hg] 86 mm[Hg] HILDA ([facility]) Body height 72 [in_i] 72 [in_i] HILDA ([facility]) Body mass index (BMI) [Ratio] 30.4 kg/m2 30.4 k g/m2 HILDA ([facility]) Systolic blood pressure 130 mm[Hg] 130 mm[Hg] A [facility] ([facility]) Body weight 3587.2 [oz_av] 3587.2 [oz_av] ATHEN A ([facility]) Diastolic blood pressure 86 mm[Hg] 86 mm[Hg] HILDA ([facility]) Body height 72 [in_i] 72 [in_i] HILDA ([facility]) Body mass index (BMI) [Ratio] 30.4 kg/m2 30.4 k g/m2 HILDA ([facility]) Systolic blood pressure 130 mm[Hg] 130 mm[Hg] A [facility] ([facility]) Body weight 3587.2 [oz_av] 3587.2 [oz_av] ATHEN A ([facility]) Diastolic blood pressure 86 mm[Hg] 86 mm[Hg] HILDA ([facility]) Body height 72 [in_i] 72 [in_i] HILDA ([facility]) Body mass index (BMI) [Ratio] 30.4 kg/m2 30.4 k g/m2 HILDA ([facility]) Systolic blood pressure 130 mm[Hg] 130 mm[Hg] A [facility] ([facility]) Body weight 3587.2 [oz_av] 3587.2 [oz_av] ATHEN A ([facility]) Diastolic blood pressure 86 mm[Hg] 86 mm[Hg] HILDA ([facility]) Body height 72 [in_i] 72 [in_i] HILDA ([facility]) Body mass index (BMI) [Ratio] 30.4 kg/m2 30.4 k g/m2 HILDA ([facility]) Systolic blood pressure 130 mm[Hg] 130 mm[Hg] A [facility] ([facility]) Body weight 3587.2 [oz_av] 3587.2 [oz_av] ATHEN A ([facility]) Diastolic blood pressure 86 mm[Hg] 86 mm[Hg] HILDA ([facility]) Body height 72 [in_i] 72 [in_i] HILDA ([facility]) Body mass index (BMI) [Ratio] 30.4 kg/m2 30.4 k g/m2 HILDA ([facility]) Systolic blood pressure 130 mm[Hg] 130 mm[Hg] A [facility] ([facility]) Body weight 3587.2 [oz_av] 3587.2 [oz_av] ATHEN A ([facility]) Diastolic blood pressure 86 mm[Hg] 86 mm[Hg] HILDA ([facility]) Body height 72 [in_i] 72 [in_i] HILDA ([facility]) Body mass index (BMI) [Ratio] 30.4 kg/m2 30.4 k g/m2 HILDA ([facility]) Systolic blood pressure 130 mm[Hg] 130 mm[Hg] A THENA ([facility]) Body weight 3587.2 [oz_av] 3587.2 [oz_av] ATHEN A ([facility]) Diastolic blood pressure 86 mm[Hg] 86 mm[Hg] HILDA ([facility]) Body height 72 [in_i] 72 [in_i] HILDA ([facility]) Body mass index (BMI) [Ratio] 30.4 kg/m2 30.4 k g/m2 HILDA ([facility]) Systolic blood pressure 130 mm[Hg] 130 mm[Hg] A [facility] ([facility]) Body weight 3587.2 [oz_av] 3587.2 [oz_av] ATHEN A ([facility]) Diastolic blood pressure 86 mm[Hg] 86 mm[Hg] HILDA ([facility]) Body height 72 [in_i] 72 [in_i] HILDA ([facility]) Body mass index (BMI) [Ratio] 30.4 kg/m2 30.4 k g/m2 HILDA ([facility]) Systolic blood pressure 130 mm[Hg] 130 mm[Hg] A [facility] ([facility]) Body weight 3587.2 [oz_av] 3587.2 [oz_av] ATHEN A ([facility]) Body height 72 [in_i] 72 [in_i] HILDA ([facility]) Body mass index (BMI) [Ratio] 30.4 kg/m2 30.4 k g/m2 HILDA ([facility]) Systolic blood pressure 130 mm[Hg] 130 mm[Hg] A [facility] ([facility]) Body weight 3587.2 [oz_av] 3587.2 [oz_av] ATHEN A ([facility]) Diastolic blood pressure 86 mm[Hg] 86 mm[Hg] HILDA ([facility]) Diastolic blood pressure 86 mm[Hg] 86 mm[Hg] HILDA ([facility]) Body height 72 [in_i] 72 [in_i] HILDA ([facility]) Body mass index (BMI) [Ratio] 30.4 kg/m2 30.4 k g/m2 HILDA ([facility]) Systolic blood pressure 130 mm[Hg] 130 mm[Hg] A THENA ([facility]) Body weight 3587.2 [oz_av] 3587.2 [oz_av] ATHEN A ([facility]) Diastolic blood pressure 86 mm[Hg] 86 mm[Hg] HILDA ([facility]) Body height 72 [in_i] 72 [in_i] HILDA ([facility]) Body mass index (BMI) [Ratio] 30.4 kg/m2 30.4 k g/m2 HILDA ([facility]) Systolic blood pressure 130 mm[Hg] 130 mm[Hg] A [facility] ([facility]) Body weight 3587.2 [oz_av] 3587.2 [oz_av] ATHEN A ([facility]) Body mass index (BMI) [Ratio] 30.2 kg/m2 30.2 k g/m2 HILDA ([facility]) Systolic blood pressure 130 mm[Hg] 130 mm[Hg] A THENA ([facility]) Body weight 3558 [oz_av] 3558 [oz_av] HILDA ([facility]) Diastolic blood pressure 85 mm[Hg] 85 mm[Hg] HILDA ([facility]) Body height 72 [in_i] 72 [in_i] HILDA ([facility]) Diastolic blood pressure 85 mm[Hg] 85 mm[Hg] HILDA ([facility]) Body height 72 [in_i] 72 [in_i] HILDA ([facility]) Body mass index (BMI) [Ratio] 30.2 kg/m2 30.2 k g/m2 HILDA ([facility]) Body weight 3558 [oz_av] 3558 [oz_av] HILDA ([facility]) Systolic blood pressure 130 mm[Hg] 130 mm[Hg] A [facility] ([facility]) Systolic blood pressure 130 mm[Hg] 130 mm[Hg] A [facility] ([facility]) Body weight 3558 [oz_av] 3558 [oz_av] HILDA ([facility]) Body height 72 [in_i] 72 [in_i] HILDA ([facility]) Diastolic blood pressure 85 mm[Hg] 85 mm[Hg] HILDA ([facility]) Body height 72 [in_i] 72 [in_i] HILDA ([facility]) Body mass index (BMI) [Ratio] 30.2 kg/m2 30.2 k g/m2 HILDA ([facility]) Body mass index (BMI) [Ratio] 30.2 kg/m2 30.2 k g/m2 HILDA ([facility]) Systolic blood pressure 130 mm[Hg] 130 mm[Hg] A [facility] ([facility]) Body weight 3558 [oz_av] 3558 [oz_av] HILDA ([facility]) Diastolic blood pressure 85 mm[Hg] 85 mm[Hg] HILDA ([facility]) Diastolic blood pressure 85 mm[Hg] 85 mm[Hg] HILDA ([facility]) Body height 72 [in_i] 72 [in_i] HILDA ([facility]) Body mass index (BMI) [Ratio] 30.2 kg/m2 30.2 k g/m2 HILDA ([facility]) Systolic blood pressure 130 mm[Hg] 130 mm[Hg] A THENA ([facility]) Diastolic blood pressure 85 mm[Hg] 85 mm[Hg] HILDA ([facility]) Body weight 3558 [oz_av] 3558 [oz_av] HILDA ([facility]) Body height 72 [in_i] 72 [in_i] HILDA ([facility]) Body mass index (BMI) [Ratio] 30.2 kg/m2 30.2 k g/m2 HILDA ([facility]) Systolic blood pressure 130 mm[Hg] 130 mm[Hg] A THENA ([facility]) Body weight 3558 [oz_av] 3558 [oz_av] HILDA ([facility]) Diastolic blood pressure 85 mm[Hg] 85 mm[Hg] HILDA ([facility]) Body height 72 [in_i] 72 [in_i] HILDA ([facility]) Body mass index (BMI) [Ratio] 30.2 kg/m2 30.2 k g/m2 HILDA ([facility]) Systolic blood pressure 130 mm[Hg] 130 mm[Hg] A THENA ([facility]) Body weight 3558 [oz_av] 3558 [oz_av] HILDA ([facility]) Diastolic blood pressure 85 mm[Hg] 85 mm[Hg] HILDA ([facility]) Body height 72 [in_i] 72 [in_i] HILDA ([facility]) Body mass index (BMI) [Ratio] 30.2 kg/m2 30.2 k g/m2 HILDA ([facility]) Systolic blood pressure 130 mm[Hg] 130 mm[Hg] A [facility] ([facility]) Body weight 3558 [oz_av] 3558 [oz_av] HILDA ([facility]) Diastolic blood pressure 85 mm[Hg] 85 mm[Hg] HILDA ([facility]) Diastolic blood pressure 85 mm[Hg] 85 mm[Hg] HILDA ([facility]) Body height 72 [in_i] 72 [in_i] HILDA ([facility]) Body mass index (BMI) [Ratio] 30.2 kg/m2 30.2 k g/m2 HILDA ([facility]) Systolic blood pressure 130 mm[Hg] 130 mm[Hg] A THENA ([facility]) Body weight 3558 [oz_av] 3558 [oz_av] HILDA ([facility]) Body height 72 [in_i] 72 [in_i] HILDA ([facility]) Body mass index (BMI) [Ratio] 30.2 kg/m2 30.2 k g/m2 HILDA ([facility]) Systolic blood pressure 130 mm[Hg] 130 mm[Hg] A THENA ([facility]) Body weight 3558 [oz_av] 3558 [oz_av] HILDA ([facility]) Diastolic blood pressure 85 mm[Hg] 85 mm[Hg] HILDA ([facility]) Body height 72 [in_i] 72 [in_i] HILDA ([facility]) Body mass index (BMI) [Ratio] 30.2 kg/m2 30.2 k g/m2 HILDA ([facility]) Systolic blood pressure 130 mm[Hg] 130 mm[Hg] A THENA ([facility]) Body weight 3558 [oz_av] 3558 [oz_av] HILDA ([facility]) Diastolic blood pressure 85 mm[Hg] 85 mm[Hg] HILDA ([facility]) Body height 72 [in_i] 72 [in_i] HILDA ([facility]) Body mass index (BMI) [Ratio] 30.2 kg/m2 30.2 k g/m2 HILDA ([facility]) Systolic blood pressure 130 mm[Hg] 130 mm[Hg] A THENA ([facility]) Body weight 3558 [oz_av] 3558 [oz_av] HILDA ([facility]) Diastolic blood pressure 85 mm[Hg] 85 mm[Hg] HILDA ([facility]) Body height 72 [in_i] 72 [in_i] HILDA ([facility]) Body mass index (BMI) [Ratio] 30.2 kg/m2 30.2 k g/m2 HILDA ([facility]) Systolic blood pressure 130 mm[Hg] 130 mm[Hg] A THENA ([facility]) Body weight 3558 [oz_av] 3558 [oz_av] HILDA ([facility]) Diastolic blood pressure 85 mm[Hg] 85 mm[Hg] HILDA ([facility]) Body height 72 [in_i] 72 [in_i] HILDA ([facility]) Body mass index (BMI) [Ratio] 30.2 kg/m2 30.2 k g/m2 HILDA ([facility]) Systolic blood pressure 130 mm[Hg] 130 mm[Hg] A THENA ([facility]) Body weight 3558 [oz_av] 3558 [oz_av] HILDA ([facility]) Diastolic blood pressure 85 mm[Hg] 85 mm[Hg] HILDA ([facility]) Body height 72 [in_i] 72 [in_i] HILDA ([facility]) Body mass index (BMI) [Ratio] 30.2 kg/m2 30.2 k g/m2 HILDA ([facility]) Systolic blood pressure 130 mm[Hg] 130 mm[Hg] A THENA ([facility]) Body weight 3558 [oz_av] 3558 [oz_av] HILDA ([facility]) Diastolic blood pressure 85 mm[Hg] 85 mm[Hg] HILDA ([facility]) Body height 72 [in_i] 72 [in_i] HILDA ([facility]) Body mass index (BMI) [Ratio] 30.2 kg/m2 30.2 k g/m2 HILDA ([facility]) Systolic blood pressure 130 mm[Hg] 130 mm[Hg] A [facility] ([facility]) Body weight 3558 [oz_av] 3558 [oz_av] HILDA ([facility]) Diastolic blood pressure 85 mm[Hg] 85 mm[Hg] HILDA ([facility]) Body height 72 [in_i] 72 [in_i] HILDA ([facility]) Body mass index (BMI) [Ratio] 30.2 kg/m2 30.2 k g/m2 HILDA ([facility]) Systolic blood pressure 130 mm[Hg] 130 mm[Hg] A [facility] ([facility]) Body weight 3558 [oz_av] 3558 [oz_av] HILDA ([facility]) Body height 72 [in_i] 72 [in_i] HILDA ([facility]) Body mass index (BMI) [Ratio] 30.2 kg/m2 30.2 k g/m2 HILDA ([facility]) Systolic blood pressure 130 mm[Hg] 130 mm[Hg] A [facility] ([facility]) Body weight 3558 [oz_av] 3558 [oz_av] HILDA ([facility]) Diastolic blood pressure 85 mm[Hg] 85 mm[Hg] HILDA ([facility]) Diastolic blood pressure 85 mm[Hg] 85 mm[Hg] HILDA ([facility]) Body height 72 [in_i] 72 [in_i] HILDA ([facility]) Body mass index (BMI) [Ratio] 30.2 kg/m2 30.2 k g/m2 HILDA ([facility]) Systolic blood pressure 130 mm[Hg] 130 mm[Hg] A THENA ([facility]) Body weight 3558 [oz_av] 3558 [oz_av] HILDA ([facility]) Diastolic blood pressure 85 mm[Hg] 85 mm[Hg] HILDA ([facility]) Body height 72 [in_i] 72 [in_i] HILDA ([facility]) Body mass index (BMI) [Ratio] 30.2 kg/m2 30.2 k g/m2 HILDA ([facility]) Systolic blood pressure 130 mm[Hg] 130 mm[Hg] A [facility] ([facility]) Body weight 3558 [oz_av] 3558 [oz_av] HILDA ([facility]) Systolic blood pressure 130 mm[Hg] 130 mm[Hg] A [facility] ([facility]) Body weight 3558 [oz_av] 3558 [oz_av] HILDA ([facility]) Diastolic blood pressure 85 mm[Hg] 85 mm[Hg] HILDA ([facility]) Body height 72 [in_i] 72 [in_i] HILDA ([facility]) Body mass index (BMI) [Ratio] 30.2 kg/m2 30.2 k g/m2 HILDA ([facility]) Diastolic blood pressure 85 mm[Hg] 85 mm[Hg] HILDA ([facility]) Body height 72 [in_i] 72 [in_i] HILDA ([facility]) Body mass index (BMI) [Ratio] 30.2 kg/m2 30.2 k g/m2 HILDA ([facility]) Systolic blood pressure 130 mm[Hg] 130 mm[Hg] A [facility] ([facility]) Body weight 3558 [oz_av] 3558 [oz_av] HILDA ([facility]) Body mass index (BMI) [Ratio] 30.2 kg/m2 30.2 k g/m2 HILDA ([facility]) Systolic blood pressure 130 mm[Hg] 130 mm[Hg] A [facility] ([facility]) Body weight 3558 [oz_av] 3558 [oz_av] HILDA ([facility]) Diastolic blood pressure 85 mm[Hg] 85 mm[Hg] HILDA ([facility]) Body height 72 [in_i] 72 [in_i] HILDA ([facility]) Body mass index (BMI) [Ratio] 30.2 kg/m2 30.2 k g/m2 HILDA ([facility]) Systolic blood pressure 130 mm[Hg] 130 mm[Hg] A [facility] ([facility]) Body weight 3558 [oz_av] 3558 [oz_av] HILDA ([facility]) Body weight 3558 [oz_av] 3558 [oz_av] HILDA ([facility]) Diastolic blood pressure 85 mm[Hg] 85 mm[Hg] HILDA ([facility]) Body height 72 [in_i] 72 [in_i] HILDA ([facility]) Body mass index (BMI) [Ratio] 30.2 kg/m2 30.2 k g/m2 HILDA ([facility]) Systolic blood pressure 130 mm[Hg] 130 mm[Hg] A [facility] ([facility]) Diastolic blood pressure 85 mm[Hg] 85 mm[Hg] HILDA ([facility]) Body height 72 [in_i] 72 [in_i] HILDA ([facility]) Body mass index (BMI) [Ratio] 30.2 kg/m2 30.2 k g/m2 HILDA ([facility]) Systolic blood pressure 130 mm[Hg] 130 mm[Hg] A [facility] ([facility]) Body weight 3558 [oz_av] 3558 [oz_av] HILDA ([facility]) Diastolic blood pressure 85 mm[Hg] 85 mm[Hg] HILDA ([facility]) Body height 72 [in_i] 72 [in_i] HILDA ([facility]) Body mass index (BMI) [Ratio] 30.2 kg/m2 30.2 k g/m2 HILDA ([facility]) Systolic blood pressure 130 mm[Hg] 130 mm[Hg] A [facility] ([facility]) Body weight 3558 [oz_av] 3558 [oz_av] HILDA ([facility]) Diastolic blood pressure 85 mm[Hg] 85 mm[Hg] HILDA ([facility]) Body height 72 [in_i] 72 [in_i] HILDA ([facility]) Systolic blood pressure 130 mm[Hg] 130 mm[Hg] A [facility] ([facility]) Body weight 3558 [oz_av] 3558 [oz_av] HILDA ([facility]) Diastolic blood pressure 85 mm[Hg] 85 mm[Hg] HILDA ([facility]) Body height 72 [in_i] 72 [in_i] HILDA ([facility]) Body mass index (BMI) [Ratio] 30.2 kg/m2 30.2 k g/m2 HILDA ([facility]) Diastolic blood pressure 85 mm[Hg] 85 mm[Hg] HILDA ([facility]) Body height 72 [in_i] 72 [in_i] HILDA ([facility]) Body mass index (BMI) [Ratio] 30.2 kg/m2 30.2 k g/m2 HILDA ([facility]) Systolic blood pressure 130 mm[Hg] 130 mm[Hg] A THENA ([facility]) Body weight 3558 [oz_av] 3558 [oz_av] HILDA ([facility]) Diastolic blood pressure 85 mm[Hg] 85 mm[Hg] HILDA ([facility]) Body height 72 [in_i] 72 [in_i] HILDA ([facility]) Body mass index (BMI) [Ratio] 30.2 kg/m2 30.2 k g/m2 HILDA ([facility]) Systolic blood pressure 130 mm[Hg] 130 mm[Hg] A THENA ([facility]) Body weight 3558 [oz_av] 3558 [oz_av] HILDA ([facility]) Systolic blood pressure 130 mm[Hg] 130 mm[Hg] A THENA ([facility]) Diastolic blood pressure 85 mm[Hg] 85 mm[Hg] HILDA ([facility]) Body height 72 [in_i] 72 [in_i] HILDA ([facility]) Body mass index (BMI) [Ratio] 30.2 kg/m2 30.2 k g/m2 HILDA ([facility]) Body weight 3558 [oz_av] 3558 [oz_av] HILDA ([facility]) Diastolic blood pressure 85 mm[Hg] 85 mm[Hg] HILDA ([facility]) Body height 72 [in_i] 72 [in_i] HILDA ([facility]) Body mass index (BMI) [Ratio] 30.2 kg/m2 30.2 k g/m2 HILDA ([facility]) Systolic blood pressure 130 mm[Hg] 130 mm[Hg] A [facility] ([facility]) Body weight 3558 [oz_av] 3558 [oz_av] HILDA ([facility]) Systolic blood pressure 130 mm[Hg] 130 mm[Hg] A [facility] ([facility]) Diastolic blood pressure 85 mm[Hg] 85 mm[Hg] HILDA ([facility]) Body height 72 [in_i] 72 [in_i] HILDA ([facility]) Body mass index (BMI) [Ratio] 30.2 kg/m2 30.2 k g/m2 HILDA ([facility]) Body weight 3558 [oz_av] 3558 [oz_av] HILDA ([facility]) Diastolic blood pressure 85 mm[Hg] 85 mm[Hg] HILDA ([facility]) Body height 72 [in_i] 72 [in_i] HILDA ([facility]) Body mass index (BMI) [Ratio] 30.2 kg/m2 30.2 k g/m2 HILDA ([facility]) Systolic blood pressure 130 mm[Hg] 130 mm[Hg] A THENA ([facility]) Body weight 3558 [oz_av] 3558 [oz_av] HILDA ([facility]) Diastolic blood pressure 85 mm[Hg] 85 mm[Hg] HILDA ([facility]) Body height 72 [in_i] 72 [in_i] HILDA ([facility]) Body mass index (BMI) [Ratio] 30.2 kg/m2 30.2 k g/m2 HILDA ([facility]) Systolic blood pressure 130 mm[Hg] 130 mm[Hg] A THENA ([facility]) Body weight 3558 [oz_av] 3558 [oz_av] HILDA ([facility]) Diastolic blood pressure 85 mm[Hg] 85 mm[Hg] HILDA ([facility]) Body height 72 [in_i] 72 [in_i] HILDA ([facility]) Body mass index (BMI) [Ratio] 30.2 kg/m2 30.2 k g/m2 HILDA ([facility]) Systolic blood pressure 130 mm[Hg] 130 mm[Hg] A [facility] ([facility]) Body weight 3558 [oz_av] 3558 [oz_av] HILDA ([facility]) Diastolic blood pressure 85 mm[Hg] 85 mm[Hg] HILDA ([facility]) Body height 72 [in_i] 72 [in_i] HILDA ([facility]) Body mass index (BMI) [Ratio] 30.2 kg/m2 30.2 k g/m2 H[facility]DA ([facility]) Systolic blood pressure 130 mm[Hg] 130 mm[Hg] A [facility] ([facility]) Body weight 3558 [oz_av] 3558 [oz_av] HILDA ([facility]) Body mass index (BMI) [Ratio] 30.2 kg/m2 30.2 k g/m2 HILDA ([facility]) Systolic blood pressure 130 mm[Hg] 130 mm[Hg] A [facility] ([facility]) Body weight 3558 [oz_av] 3558 [oz_av] HILDA ([facility]) Diastolic blood pressure 85 mm[Hg] 85 mm[Hg] HILDA ([facility]) Body height 72 [in_i] 72 [in_i] HILDA ([facility]) Body mass index (BMI) [Ratio] 30.24 kg/m2 30.24 kg/m2 HILDA ([facility]) Diastolic blood pressure 70 mm[Hg] 70 mm[Hg] HILDA ([facility]) Systolic blood pressure 134 mm[Hg] 134 mm[Hg] A THENA ([facility]) Body height 72 [in_i] 72 [in_i] HILDA ([facility]) Body weight 3555.2 [oz_av] 3555.2 [oz_av] ATHEN A ([facility]) Diastolic blood pressure 70 mm[Hg] 70 mm[Hg] HILDA ([facility]) Body height 72 [in_i] 72 [in_i] HILDA ([facility]) Body mass index (BMI) [Ratio] 30.24 kg/m2 30.24 kg/m2 H[facility]DA ([facility]) Systolic blood pressure 134 mm[Hg] 134 mm[Hg] A THENA ([facility]) Body weight 3555.2 [oz_av] 3555.2 [oz_av] ATHEN A ([facility]) Diastolic blood pressure 70 mm[Hg] 70 mm[Hg] HILDA ([facility]) Body height 72 [in_i] 72 [in_i] HILDA ([facility]) Body mass index (BMI) [Ratio] 30.24 kg/m2 30.24 kg/m2 [facility]DA ([facility]) Systolic blood pressure 134 mm[Hg] 134 mm[Hg] A THENA ([facility]) Body weight 3555.2 [oz_av] 3555.2 [oz_av] ATHEN A ([facility]) Diastolic blood pressure 70 mm[Hg] 70 mm[Hg] HILDA ([facility]) Body height 72 [in_i] 72 [in_i] HILDA ([facility]) Body mass index (BMI) [Ratio] 30.24 kg/m2 30.24 kg/m2 [facility] ([facility]) Systolic blood pressure 134 mm[Hg] 134 mm[Hg] A THENA ([facility]) Body weight 3555.2 [oz_av] 3555.2 [oz_av] ATHEN A ([facility]) Diastolic blood pressure 70 mm[Hg] 70 mm[Hg] HILDA ([facility]) Body height 72 [in_i] 72 [in_i] HILDA ([facility]) Body mass index (BMI) [Ratio] 30.24 kg/m2 30.24 kg/m2 [facility]ILDA ([facility]) Systolic blood pressure 134 mm[Hg] 134 mm[Hg] A THENA ([facility]) Body weight 3555.2 [oz_av] 3555.2 [oz_av] ATHEN A ([facility]) Diastolic blood pressure 70 mm[Hg] 70 mm[Hg] HILDA ([facility]) Body height 72 [in_i] 72 [in_i] [facility]DA ([facility]) Body mass index (BMI) [Ratio] 30.24 kg/m2 30.24 kg/m2 [facility]DA ([facility]) Systolic blood pressure 134 mm[Hg] 134 mm[Hg] A THENA ([facility]) Body weight 3555.2 [oz_av] 3555.2 [oz_av] ATHEN A ([facility]) Diastolic blood pressure 70 mm[Hg] 70 mm[Hg] HILDA ([facility]) Body height 72 [in_i] 72 [in_i] HILDA ([facility]) Body mass index (BMI) [Ratio] 30.24 kg/m2 30.24 kg/m2 [facility] ([facility]) Systolic blood pressure 134 mm[Hg] 134 mm[Hg] A THENA ([facility]) Body weight 3555.2 [oz_av] 3555.2 [oz_av] ATHEN A ([facility]) Diastolic blood pressure 70 mm[Hg] 70 mm[Hg] HILDA ([facility]) Body height 72 [in_i] 72 [in_i] [facility]DA ([facility]) Body mass index (BMI) [Ratio] 30.24 kg/m2 30.24 kg/m2 H[facility] ([facility]) Systolic blood pressure 134 mm[Hg] 134 mm[Hg] A [facility] ([facility]) Diastolic blood pressure 70 mm[Hg] 70 mm[Hg] HILDA ([facility]) Body height 72 [in_i] 72 [in_i] HILDA ([facility]) Body mass index (BMI) [Ratio] 30.24 kg/m2 30.24 kg/m2 [facility]ILDA ([facility]) Systolic blood pressure 134 mm[Hg] 134 mm[Hg] A THENA ([facility]) Body weight 3555.2 [oz_av] 3555.2 [oz_av] ATHEN A ([facility]) Body weight 3555.2 [oz_av] 3555.2 [oz_av] ATHEN A ([facility]) Diastolic blood pressure 70 mm[Hg] 70 mm[Hg] HILDA ([facility]) Body height 72 [in_i] 72 [in_i] [facility]ILDA ([facility]) Body mass index (BMI) [Ratio] 30.24 kg/m2 30.24 kg/m2 HILDA ([facility]) Systolic blood pressure 134 mm[Hg] 134 mm[Hg] A MOIZ ([facility]) Body weight 3555.2 [oz_av] 3555.2 [oz_av] ATHEN A ([facility]) Diastolic blood pressure 70 mm[Hg] 70 mm[Hg] HILDA ([facility]) Body height 72 [in_i] 72 [in_i] HILDA ([facility]) Body mass index (BMI) [Ratio] 30.24 kg/m2 30.24 kg/m2 HILDA ([facility]) Systolic blood pressure 134 mm[Hg] 134 mm[Hg] A MOIZ ([facility]) Body weight 3555.2 [oz_av] 3555.2 [oz_av] ATHEN A ([facility]) Diastolic blood pressure 70 mm[Hg] 70 mm[Hg] HILDA ([facility]) Body height 72 [in_i] 72 [in_i] HILDA ([facility]) Body mass index (BMI) [Ratio] 30.24 kg/m2 30.24 kg/m2 HILDA ([facility]) Systolic blood pressure 134 mm[Hg] 134 mm[Hg] A MOIZ ([facility]) Body weight 3555.2 [oz_av] 3555.2 [oz_av] ATHEN A ([facility]) Diastolic blood pressure 70 mm[Hg] 70 mm[Hg] HILDA ([facility]) Body height 72 [in_i] 72 [in_i] HILDA ([facility]) Body mass index (BMI) [Ratio] 30.24 kg/m2 30.24 kg/m2 HILDA ([facility]) Systolic blood pressure 134 mm[Hg] 134 mm[Hg] A MOIZ ([facility]) Body weight 3555.2 [oz_av] 3555.2 [oz_av] ATHEN A ([facility]) Diastolic blood pressure 70 mm[Hg] 70 mm[Hg] HILDA ([facility]) Body height 72 [in_i] 72 [in_i] HILDA ([facility]) Body mass index (BMI) [Ratio] 30.24 kg/m2 30.24 kg/m2 HILDA ([facility]) Systolic blood pressure 134 mm[Hg] 134 mm[Hg] A [facility] ([facility]) Body weight 3555.2 [oz_av] 3555.2 [oz_av] ATHEN A ([facility]) Diastolic blood pressure 70 mm[Hg] 70 mm[Hg] HILDA ([facility]) Body height 72 [in_i] 72 [in_i] HILDA ([facility]) Body mass index (BMI) [Ratio] 30.24 kg/m2 30.24 kg/m2 HILDA ([facility]) Systolic blood pressure 134 mm[Hg] 134 mm[Hg] A [facility] ([facility]) Body weight 3555.2 [oz_av] 3555.2 [oz_av] ATHEN A ([facility]) Diastolic blood pressure 70 mm[Hg] 70 mm[Hg] HILDA ([facility]) Body height 72 [in_i] 72 [in_i] HILDA ([facility]) Body mass index (BMI) [Ratio] 30.24 kg/m2 30.24 kg/m2 HILDA ([facility]) Systolic blood pressure 134 mm[Hg] 134 mm[Hg] A LUISA ([facility]) Body weight 3555.2 [oz_av] 3555.2 [oz_av] ATHEN A ([facility]) Diastolic blood pressure 70 mm[Hg] 70 mm[Hg] HILDA ([facility]) Body height 72 [in_i] 72 [in_i] HILDA ([facility]) Body mass index (BMI) [Ratio] 30.24 kg/m2 30.24 kg/m2 HILDA ([facility]) Systolic blood pressure 134 mm[Hg] 134 mm[Hg] A THENA ([facility]) Body weight 3555.2 [oz_av] 3555.2 [oz_av] ATHEN A ([facility]) Body weight 3555.2 [oz_av] 3555.2 [oz_av] ATHEN A ([facility]) Body mass index (BMI) [Ratio] 30.24 kg/m2 30.24 kg/m2 HILDA ([facility]) Systolic blood pressure 134 mm[Hg] 134 mm[Hg] A [facility] ([facility]) Diastolic blood pressure 70 mm[Hg] 70 mm[Hg] HILDA ([facility]) Body height 72 [in_i] 72 [in_i] HILDA ([facility]) Diastolic blood pressure 70 mm[Hg] 70 mm[Hg] HILDA ([facility]) Body height 72 [in_i] 72 [in_i] HILDA ([facility]) Body mass index (BMI) [Ratio] 30.24 kg/m2 30.24 kg/m2 HILDA ([facility]) Systolic blood pressure 134 mm[Hg] 134 mm[Hg] A THENA ([facility]) Body weight 3555.2 [oz_av] 3555.2 [oz_av] ATHEN A ([facility]) Diastolic blood pressure 70 mm[Hg] 70 mm[Hg] HILDA ([facility]) Body height 72 [in_i] 72 [in_i] HILDA ([facility]) Body mass index (BMI) [Ratio] 30.24 kg/m2 30.24 kg/m2 HILDA ([facility]) Systolic blood pressure 134 mm[Hg] 134 mm[Hg] A THENA ([facility]) Body weight 3555.2 [oz_av] 3555.2 [oz_av] ATHEN A ([facility]) Diastolic blood pressure 70 mm[Hg] 70 mm[Hg] HILDA ([facility]) Body height 72 [in_i] 72 [in_i] HILDA ([facility]) Body mass index (BMI) [Ratio] 30.24 kg/m2 30.24 kg/m2 HILDA ([facility]) Systolic blood pressure 134 mm[Hg] 134 mm[Hg] A THENA ([facility]) Body weight 3555.2 [oz_av] 3555.2 [oz_av] ATHEN A ([facility]) Diastolic blood pressure 70 mm[Hg] 70 mm[Hg] HILDA ([facility]) Body height 72 [in_i] 72 [in_i] HILDA ([facility]) Body mass index (BMI) [Ratio] 30.24 kg/m2 30.24 kg/m2 HILDA ([facility]) Systolic blood pressure 134 mm[Hg] 134 mm[Hg] A THENA ([facility]) Body weight 3555.2 [oz_av] 3555.2 [oz_av] ATHEN A ([facility]) Diastolic blood pressure 70 mm[Hg] 70 mm[Hg] HILDA ([facility]) Body height 72 [in_i] 72 [in_i] HILDA ([facility]) Body mass index (BMI) [Ratio] 30.24 kg/m2 30.24 kg/m2 HILDA ([facility]) Systolic blood pressure 134 mm[Hg] 134 mm[Hg] A [facility] ([facility]) Body weight 3555.2 [oz_av] 3555.2 [oz_av] ATHEN A ([facility]) Diastolic blood pressure 91 mm[Hg] 91 mm[Hg] HILDA ([facility]) Diastolic blood pressure 91 mm[Hg] 91 mm[Hg] HILDA ([facility]) Body height 72 [in_i] 72 [in_i] HILDA ([facility]) Systolic blood pressure 135 mm[Hg] 135 mm[Hg] A [facility] ([facility]) Systolic blood pressure 148 mm[Hg] 148 mm[Hg] A THENA ([facility]) Body weight 3539.2 [oz_av] 3539.2 [oz_av] ATHEN A ([facility]) Body weight 3539.2 [oz_av] 3539.2 [oz_av] ATHEN A ([facility]) Diastolic blood pressure 91 mm[Hg] 91 mm[Hg] HILDA ([facility]) Diastolic blood pressure 91 mm[Hg] 91 mm[Hg] HILDA ([facility]) Body height 72 [in_i] 72 [in_i] HILDA ([facility]) Systolic blood pressure 135 mm[Hg] 135 mm[Hg] A THENA ([facility]) Systolic blood pressure 148 mm[Hg] 148 mm[Hg] A THENA ([facility]) Diastolic blood pressure 79 mm[Hg] 79 mm[Hg] HILDA ([facility]) Systolic blood pressure 135 mm[Hg] 135 mm[Hg] A THENA ([facility]) Diastolic blood pressure 91 mm[Hg] 91 mm[Hg] HILDA ([facility]) Systolic blood pressure 135 mm[Hg] 135 mm[Hg] A THENA ([facility]) Diastolic blood pressure 91 mm[Hg] 91 mm[Hg] HILDA ([facility]) Body weight 3539.2 [oz_av] 3539.2 [oz_av] ATHEN A ([facility]) Body height 72 [in_i] 72 [in_i] HILDA ([facility]) Body mass index (BMI) [Ratio] 30.11 kg/m2 30.11 kg/m2 HILDA ([facility]) Systolic blood pressure 148 mm[Hg] 148 mm[Hg] A THENA ([facility]) Diastolic blood pressure 91 mm[Hg] 91 mm[Hg] HILDA ([facility]) Diastolic blood pressure 91 mm[Hg] 91 mm[Hg] HILDA ([facility]) Body height 72 [in_i] 72 [in_i] HILDA ([facility]) Systolic blood pressure 135 mm[Hg] 135 mm[Hg] A THENA ([facility]) Systolic blood pressure 148 mm[Hg] 148 mm[Hg] A THENA ([facility]) Body weight 3539.2 [oz_av] 3539.2 [oz_av] ATHEN A ([facility]) Diastolic blood pressure 79 mm[Hg] 79 mm[Hg] HILDA ([facility]) Diastolic blood pressure 91 mm[Hg] 91 mm[Hg] HILDA ([facility]) Diastolic blood pressure 91 mm[Hg] 91 mm[Hg] HILDA ([facility]) Body height 72 [in_i] 72 [in_i] HILDA ([facility]) Body mass index (BMI) [Ratio] 30.11 kg/m2 30.11 kg/m2 HILDA ([facility]) Systolic blood pressure 135 mm[Hg] 135 mm[Hg] A THENA ([facility]) Systolic blood pressure 135 mm[Hg] 135 mm[Hg] A THENA ([facility]) Systolic blood pressure 148 mm[Hg] 148 mm[Hg] A THENA ([facility]) Body weight 3539.2 [oz_av] 3539.2 [oz_av] ATHEN A ([facility]) Diastolic blood pressure 91 mm[Hg] 91 mm[Hg] HILDA ([facility]) Diastolic blood pressure 91 mm[Hg] 91 mm[Hg] HILDA ([facility]) Body height 72 [in_i] 72 [in_i] HILDA ([facility]) Systolic blood pressure 135 mm[Hg] 135 mm[Hg] A THENA ([facility]) Systolic blood pressure 148 mm[Hg] 148 mm[Hg] A THENA ([facility]) Body weight 3539.2 [oz_av] 3539.2 [oz_av] ATHEN A ([facility]) Diastolic blood pressure 91 mm[Hg] 91 mm[Hg] HILDA ([facility]) Diastolic blood pressure 91 mm[Hg] 91 mm[Hg] HILDA ([facility]) Body height 72 [in_i] 72 [in_i] HILDA ([facility]) Systolic blood pressure 135 mm[Hg] 135 mm[Hg] A THENA ([facility]) Systolic blood pressure 148 mm[Hg] 148 mm[Hg] A THENA ([facility]) Body weight 3539.2 [oz_av] 3539.2 [oz_av] ATHEN A ([facility]) Diastolic blood pressure 91 mm[Hg] 91 mm[Hg] HILDA ([facility]) Diastolic blood pressure 91 mm[Hg] 91 mm[Hg] HILDA ([facility]) Body height 72 [in_i] 72 [in_i] HILDA ([facility]) Systolic blood pressure 135 mm[Hg] 135 mm[Hg] A THENA ([facility]) Systolic blood pressure 148 mm[Hg] 148 mm[Hg] A THENA ([facility]) Body weight 3539.2 [oz_av] 3539.2 [oz_av] ATHEN A ([facility]) Diastolic blood pressure 91 mm[Hg] 91 mm[Hg] HILDA ([facility]) Diastolic blood pressure 91 mm[Hg] 91 mm[Hg] HILDA ([facility]) Body height 72 [in_i] 72 [in_i] HILDA ([facility]) Systolic blood pressure 135 mm[Hg] 135 mm[Hg] A THENA ([facility]) Systolic blood pressure 148 mm[Hg] 148 mm[Hg] A THENA ([facility]) Body weight 3539.2 [oz_av] 3539.2 [oz_av] ATHEN A ([facility]) Diastolic blood pressure 91 mm[Hg] 91 mm[Hg] HILDA ([facility]) Diastolic blood pressure 91 mm[Hg] 91 mm[Hg] HILDA ([facility]) Body height 72 [in_i] 72 [in_i] HILDA ([facility]) Systolic blood pressure 135 mm[Hg] 135 mm[Hg] A THENA ([facility]) Systolic blood pressure 148 mm[Hg] 148 mm[Hg] A THENA ([facility]) Body weight 3539.2 [oz_av] 3539.2 [oz_av] ATHEN A ([facility]) Diastolic blood pressure 91 mm[Hg] 91 mm[Hg] HILDA ([facility]) Diastolic blood pressure 91 mm[Hg] 91 mm[Hg] HILDA ([facility]) Body height 72 [in_i] 72 [in_i] HILDA ([facility]) Systolic blood pressure 135 mm[Hg] 135 mm[Hg] A THENA ([facility]) Systolic blood pressure 148 mm[Hg] 148 mm[Hg] A THENA ([facility]) Body weight 3539.2 [oz_av] 3539.2 [oz_av] ATHEN A ([facility]) Diastolic blood pressure 91 mm[Hg] 91 mm[Hg] HILDA ([facility]) Diastolic blood pressure 91 mm[Hg] 91 mm[Hg] HILDA ([facility]) Body height 72 [in_i] 72 [in_i] HILDA ([facility]) Systolic blood pressure 135 mm[Hg] 135 mm[Hg] A THENA ([facility]) Systolic blood pressure 148 mm[Hg] 148 mm[Hg] A THENA ([facility]) Body weight 3539.2 [oz_av] 3539.2 [oz_av] ATHEN A ([facility]) Diastolic blood pressure 91 mm[Hg] 91 mm[Hg] HILDA ([facility]) Diastolic blood pressure 91 mm[Hg] 91 mm[Hg] HILDA ([facility]) Body height 72 [in_i] 72 [in_i] HILDA ([facility]) Systolic blood pressure 135 mm[Hg] 135 mm[Hg] A THENA ([facility]) Systolic blood pressure 148 mm[Hg] 148 mm[Hg] A [facility] ([facility]) Body weight 3539.2 [oz_av] 3539.2 [oz_av] ATHEN A ([facility]) Diastolic blood pressure 91 mm[Hg] 91 mm[Hg] HILDA ([facility]) Diastolic blood pressure 91 mm[Hg] 91 mm[Hg] HILDA ([facility]) Body height 72 [in_i] 72 [in_i] HILDA ([facility]) Systolic blood pressure 135 mm[Hg] 135 mm[Hg] A THENA ([facility]) Systolic blood pressure 148 mm[Hg] 148 mm[Hg] A THENA ([facility]) Body weight 3539.2 [oz_av] 3539.2 [oz_av] ATHEN A ([facility]) Diastolic blood pressure 91 mm[Hg] 91 mm[Hg] HILDA ([facility]) Diastolic blood pressure 91 mm[Hg] 91 mm[Hg] HILDA ([facility]) Body height 72 [in_i] 72 [in_i] HILDA ([facility]) Systolic blood pressure 135 mm[Hg] 135 mm[Hg] A THENA ([facility]) Systolic blood pressure 148 mm[Hg] 148 mm[Hg] A THENA ([facility]) Body weight 3539.2 [oz_av] 3539.2 [oz_av] ATHEN A ([facility]) Diastolic blood pressure 91 mm[Hg] 91 mm[Hg] HILDA ([facility]) Diastolic blood pressure 91 mm[Hg] 91 mm[Hg] HILDA ([facility]) Body height 72 [in_i] 72 [in_i] HILDA ([facility]) Systolic blood pressure 135 mm[Hg] 135 mm[Hg] A THENA ([facility]) Systolic blood pressure 148 mm[Hg] 148 mm[Hg] A THENA ([facility]) Body weight 3539.2 [oz_av] 3539.2 [oz_av] ATHEN A ([facility]) Diastolic blood pressure 91 mm[Hg] 91 mm[Hg] HILDA ([facility]) Diastolic blood pressure 91 mm[Hg] 91 mm[Hg] HILDA ([facility]) Diastolic blood pressure 91 mm[Hg] 91 mm[Hg] HILDA ([facility]) Diastolic blood pressure 91 mm[Hg] 91 mm[Hg] HILDA ([facility]) Body height 72 [in_i] 72 [in_i] HILDA ([facility]) Systolic blood pressure 135 mm[Hg] 135 mm[Hg] A THENA ([facility]) Systolic blood pressure 148 mm[Hg] 148 mm[Hg] A THENA ([facility]) Body weight 3539.2 [oz_av] 3539.2 [oz_av] ATHEN A ([facility]) Body height 72 [in_i] 72 [in_i] HILDA ([facility]) Systolic blood pressure 135 mm[Hg] 135 mm[Hg] A THENA ([facility]) Systolic blood pressure 148 mm[Hg] 148 mm[Hg] A THENA ([facility]) Body weight 3539.2 [oz_av] 3539.2 [oz_av] ATHEN A ([facility]) Diastolic blood pressure 91 mm[Hg] 91 mm[Hg] HILDA ([facility]) Diastolic blood pressure 91 mm[Hg] 91 mm[Hg] HILDA ([facility]) Body height 72 [in_i] 72 [in_i] HILDA ([facility]) Systolic blood pressure 135 mm[Hg] 135 mm[Hg] A THENA ([facility]) Systolic blood pressure 148 mm[Hg] 148 mm[Hg] A [facility] ([facility]) Body weight 3539.2 [oz_av] 3539.2 [oz_av] ATHEN A ([facility]) Diastolic blood pressure 79 mm[Hg] 79 mm[Hg] HILDA ([facility]) Diastolic blood pressure 91 mm[Hg] 91 mm[Hg] HILDA ([facility]) Diastolic blood pressure 91 mm[Hg] 91 mm[Hg] HILDA ([facility]) Body height 72 [in_i] 72 [in_i] HILDA ([facility]) Body mass index (BMI) [Ratio] 30.11 kg/m2 30.11 kg/m2 HILDA ([facility]) Systolic blood pressure 135 mm[Hg] 135 mm[Hg] A THENA ([facility]) Systolic blood pressure 135 mm[Hg] 135 mm[Hg] A THENA ([facility]) Systolic blood pressure 148 mm[Hg] 148 mm[Hg] A [facility] ([facility]) Body weight 3539.2 [oz_av] 3539.2 [oz_av] ATHEN A ([facility]) Body height 72 [in_i] 72 [in_i] HILDA ([facility]) Body mass index (BMI) [Ratio] 30.11 kg/m2 30.11 kg/m2 HILDA ([facility]) Systolic blood pressure 135 mm[Hg] 135 mm[Hg] A THENA ([facility]) Systolic blood pressure 135 mm[Hg] 135 mm[Hg] A THENA ([facility]) Systolic blood pressure 148 mm[Hg] 148 mm[Hg] A [facility] ([facility]) Body weight 3539.2 [oz_av] 3539.2 [oz_av] ATHEN A ([facility]) Diastolic blood pressure 79 mm[Hg] 79 mm[Hg] HILDA ([facility]) Diastolic blood pressure 91 mm[Hg] 91 mm[Hg] HILDA ([facility]) Diastolic blood pressure 91 mm[Hg] 91 mm[Hg] HILDA ([facility]) Diastolic blood pressure 79 mm[Hg] 79 mm[Hg] HILDA ([facility]) Diastolic blood pressure 91 mm[Hg] 91 mm[Hg] HILDA ([facility]) Diastolic blood pressure 91 mm[Hg] 91 mm[Hg] HILDA ([facility]) Body height 72 [in_i] 72 [in_i] HILDA ([facility]) Body mass index (BMI) [Ratio] 30.11 kg/m2 30.11 kg/m2 HILDA ([facility]) Systolic blood pressure 135 mm[Hg] 135 mm[Hg] A THENA ([facility]) Systolic blood pressure 135 mm[Hg] 135 mm[Hg] A THENA ([facility]) Systolic blood pressure 148 mm[Hg] 148 mm[Hg] A [facility] ([facility]) Body weight 3539.2 [oz_av] 3539.2 [oz_av] ATHEN A ([facility]) Diastolic blood pressure 79 mm[Hg] 79 mm[Hg] HILDA ([facility]) Diastolic blood pressure 91 mm[Hg] 91 mm[Hg] HILDA ([facility]) Diastolic blood pressure 91 mm[Hg] 91 mm[Hg] HILDA ([facility]) Body height 72 [in_i] 72 [in_i] HILDA ([facility]) Body mass index (BMI) [Ratio] 30.11 kg/m2 30.11 kg/m2 HILDA ([facility]) Systolic blood pressure 135 mm[Hg] 135 mm[Hg] A THENA ([facility]) Systolic blood pressure 135 mm[Hg] 135 mm[Hg] A THENA ([facility]) Systolic blood pressure 148 mm[Hg] 148 mm[Hg] A THENA ([facility]) Body weight 3539.2 [oz_av] 3539.2 [oz_av] ATHEN A ([facility]) Diastolic blood pressure 79 mm[Hg] 79 mm[Hg] HILDA ([facility]) Diastolic blood pressure 91 mm[Hg] 91 mm[Hg] HILDA ([facility]) Diastolic blood pressure 91 mm[Hg] 91 mm[Hg] HILDA ([facility]) Body height 72 [in_i] 72 [in_i] HILDA ([facility]) Body mass index (BMI) [Ratio] 30.11 kg/m2 30.11 kg/m2 HILDA ([facility]) Systolic blood pressure 135 mm[Hg] 135 mm[Hg] A THENA ([facility]) Systolic blood pressure 135 mm[Hg] 135 mm[Hg] A THENA ([facility]) Systolic blood pressure 148 mm[Hg] 148 mm[Hg] A [facility] ([facility]) Body weight 3539.2 [oz_av] 3539.2 [oz_av] ATHEN A ([facility]) Diastolic blood pressure 79 mm[Hg] 79 mm[Hg] HILDA ([facility]) Diastolic blood pressure 91 mm[Hg] 91 mm[Hg] HILDA ([facility]) Diastolic blood pressure 91 mm[Hg] 91 mm[Hg] HILDA ([facility]) Body height 72 [in_i] 72 [in_i] HILDA ([facility]) Body mass index (BMI) [Ratio] 30.11 kg/m2 30.11 kg/m2 HILDA ([facility]) Systolic blood pressure 135 mm[Hg] 135 mm[Hg] A THENA ([facility]) Systolic blood pressure 135 mm[Hg] 135 mm[Hg] A THENA ([facility]) Systolic blood pressure 148 mm[Hg] 148 mm[Hg] A [facility] ([facility]) Body weight 3539.2 [oz_av] 3539.2 [oz_av] ATHEN A ([facility]) Diastolic blood pressure 79 mm[Hg] 79 mm[Hg] HILDA ([facility]) Diastolic blood pressure 91 mm[Hg] 91 mm[Hg] HILDA ([facility]) Diastolic blood pressure 91 mm[Hg] 91 mm[Hg] HILDA ([facility]) Body height 72 [in_i] 72 [in_i] HILDA ([facility]) Body mass index (BMI) [Ratio] 30.11 kg/m2 30.11 kg/m2 HILDA ([facility]) Systolic blood pressure 135 mm[Hg] 135 mm[Hg] A THENA ([facility]) Systolic blood pressure 135 mm[Hg] 135 mm[Hg] A THENA ([facility]) Systolic blood pressure 148 mm[Hg] 148 mm[Hg] A [facility] ([facility]) Body weight 3539.2 [oz_av] 3539.2 [oz_av] ATHEN A ([facility]) Diastolic blood pressure 79 mm[Hg] 79 mm[Hg] HILDA ([facility]) Diastolic blood pressure 91 mm[Hg] 91 mm[Hg] HILDA ([facility]) Diastolic blood pressure 91 mm[Hg] 91 mm[Hg] HILDA ([facility]) Body height 72 [in_i] 72 [in_i] HILDA ([facility]) Body mass index (BMI) [Ratio] 30.11 kg/m2 30.11 kg/m2 HILDA ([facility]) Systolic blood pressure 135 mm[Hg] 135 mm[Hg] A THENA ([facility]) Systolic blood pressure 135 mm[Hg] 135 mm[Hg] A [facility] ([facility]) Systolic blood pressure 148 mm[Hg] 148 mm[Hg] A [facility] ([facility]) Body weight 3539.2 [oz_av] 3539.2 [oz_av] ATHEN A ([facility]) Diastolic blood pressure 79 mm[Hg] 79 mm[Hg] HILDA ([facility]) Diastolic blood pressure 91 mm[Hg] 91 mm[Hg] HILDA ([facility]) Diastolic blood pressure 91 mm[Hg] 91 mm[Hg] HILDA ([facility]) Body height 72 [in_i] 72 [in_i] HILDA ([facility]) Body mass index (BMI) [Ratio] 30.11 kg/m2 30.11 kg/m2 HILDA ([facility]) Systolic blood pressure 135 mm[Hg] 135 mm[Hg] A THENA ([facility]) Systolic blood pressure 135 mm[Hg] 135 mm[Hg] A THENA ([facility]) Systolic blood pressure 148 mm[Hg] 148 mm[Hg] A THENA ([facility]) Body weight 3539.2 [oz_av] 3539.2 [oz_av] ATHEN A ([facility]) Diastolic blood pressure 79 mm[Hg] 79 mm[Hg] HILDA ([facility]) Diastolic blood pressure 91 mm[Hg] 91 mm[Hg] HILDA ([facility]) Diastolic blood pressure 91 mm[Hg] 91 mm[Hg] HILDA ([facility]) Body height 72 [in_i] 72 [in_i] HILDA ([facility]) Body mass index (BMI) [Ratio] 30.11 kg/m2 30.11 kg/m2 [facility]DA ([facility]) Systolic blood pressure 135 mm[Hg] 135 mm[Hg] A THENA ([facility]) Systolic blood pressure 135 mm[Hg] 135 mm[Hg] A THENA ([facility]) Systolic blood pressure 148 mm[Hg] 148 mm[Hg] A [facility] ([facility]) Body weight 3539.2 [oz_av] 3539.2 [oz_av] ATHEN A ([facility]) Diastolic blood pressure 79 mm[Hg] 79 mm[Hg] HILDA ([facility]) Diastolic blood pressure 91 mm[Hg] 91 mm[Hg] HILDA ([facility]) Diastolic blood pressure 91 mm[Hg] 91 mm[Hg] HILDA ([facility]) Body height 72 [in_i] 72 [in_i] HILDA ([facility]) Body mass index (BMI) [Ratio] 30.11 kg/m2 30.11 kg/m2 [facility]DA ([facility]) Systolic blood pressure 135 mm[Hg] 135 mm[Hg] A THENA ([facility]) Systolic blood pressure 135 mm[Hg] 135 mm[Hg] A THENA ([facility]) Systolic blood pressure 148 mm[Hg] 148 mm[Hg] A [facility] ([facility]) Body weight 3539.2 [oz_av] 3539.2 [oz_av] ATHEN A ([facility]) Systolic blood pressure 135 mm[Hg] 135 mm[Hg] A THENA ([facility]) Systolic blood pressure 135 mm[Hg] 135 mm[Hg] A THENA ([facility]) Systolic blood pressure 148 mm[Hg] 148 mm[Hg] A THENA ([facility]) Body weight 3539.2 [oz_av] 3539.2 [oz_av] ATHEN A ([facility]) Diastolic blood pressure 91 mm[Hg] 91 mm[Hg] H[facility]DA ([facility]) Diastolic blood pressure 79 mm[Hg] 79 mm[Hg] H[facility]DA ([facility]) Diastolic blood pressure 91 mm[Hg] 91 mm[Hg] H[facility]DA ([facility]) Diastolic blood pressure 91 mm[Hg] 91 mm[Hg] H[facility]DA ([facility]) Body height 72 [in_i] 72 [in_i] HILDA ([facility]) Body mass index (BMI) [Ratio] 30.11 kg/m2 30.11 kg/m2 [facility] ([facility]) Systolic blood pressure 135 mm[Hg] 135 mm[Hg] A THENA ([facility]) Systolic blood pressure 148 mm[Hg] 148 mm[Hg] A [facility] ([facility]) Body weight 3539.2 [oz_av] 3539.2 [oz_av] ATHEN A ([facility]) Diastolic blood pressure 79 mm[Hg] 79 mm[Hg] HILDA ([facility]) Diastolic blood pressure 91 mm[Hg] 91 mm[Hg] HILDA ([facility]) Body height 72 [in_i] 72 [in_i] HILDA ([facility]) Body mass index (BMI) [Ratio] 30.11 kg/m2 30.11 kg/m2 HILDA ([facility]) Systolic blood pressure 135 mm[Hg] 135 mm[Hg] A THENA ([facility]) Diastolic blood pressure 79 mm[Hg] 79 mm[Hg] HILDA ([facility]) Diastolic blood pressure 91 mm[Hg] 91 mm[Hg] HILDA ([facility]) Diastolic blood pressure 91 mm[Hg] 91 mm[Hg] HILDA ([facility]) Body height 72 [in_i] 72 [in_i] HILDA ([facility]) Body mass index (BMI) [Ratio] 30.11 kg/m2 30.11 kg/m2 HILDA ([facility]) Systolic blood pressure 135 mm[Hg] 135 mm[Hg] A THENA ([facility]) Systolic blood pressure 135 mm[Hg] 135 mm[Hg] A THENA ([facility]) Systolic blood pressure 148 mm[Hg] 148 mm[Hg] A THENA ([facility]) Body weight 3539.2 [oz_av] 3539.2 [oz_av] ATHEN A ([facility]) Diastolic blood pressure 79 mm[Hg] 79 mm[Hg] HILDA ([facility]) Diastolic blood pressure 91 mm[Hg] 91 mm[Hg] HILDA ([facility]) Diastolic blood pressure 91 mm[Hg] 91 mm[Hg] HILDA ([facility]) Body height 72 [in_i] 72 [in_i] HILDA ([facility]) Body mass index (BMI) [Ratio] 30.11 kg/m2 30.11 kg/m2 HILDA ([facility]) Systolic blood pressure 135 mm[Hg] 135 mm[Hg] A THENA ([facility]) Systolic blood pressure 135 mm[Hg] 135 mm[Hg] A THENA ([facility]) Systolic blood pressure 148 mm[Hg] 148 mm[Hg] A [facility] ([facility]) Body weight 3539.2 [oz_av] 3539.2 [oz_av] ATHEN A ([facility]) Diastolic blood pressure 79 mm[Hg] 79 mm[Hg] HILDA ([facility]) Diastolic blood pressure 91 mm[Hg] 91 mm[Hg] HILDA ([facility]) Diastolic blood pressure 91 mm[Hg] 91 mm[Hg] HILDA ([facility]) Body height 72 [in_i] 72 [in_i] HILDA ([facility]) Body mass index (BMI) [Ratio] 30.11 kg/m2 30.11 kg/m2 HILDA ([facility]) Systolic blood pressure 135 mm[Hg] 135 mm[Hg] A [facility] ([facility]) Systolic blood pressure 135 mm[Hg] 135 mm[Hg] A THENA ([facility]) Systolic blood pressure 148 mm[Hg] 148 mm[Hg] A THENA ([facility]) Body weight 3539.2 [oz_av] 3539.2 [oz_av] ATHEN A ([facility]) Diastolic blood pressure 79 mm[Hg] 79 mm[Hg] HILDA ([facility]) Diastolic blood pressure 91 mm[Hg] 91 mm[Hg] HILDA ([facility]) Diastolic blood pressure 91 mm[Hg] 91 mm[Hg] HILDA ([facility]) Body height 72 [in_i] 72 [in_i] HILDA ([facility]) Body mass index (BMI) [Ratio] 30.11 kg/m2 30.11 kg/m2 HILDA ([facility]) Systolic blood pressure 135 mm[Hg] 135 mm[Hg] A THENA ([facility]) Systolic blood pressure 135 mm[Hg] 135 mm[Hg] A THENA ([facility]) Systolic blood pressure 148 mm[Hg] 148 mm[Hg] A THENA ([facility]) Body weight 3539.2 [oz_av] 3539.2 [oz_av] ATHEN A ([facility]) Body height 72 [in_i] 72 [in_i] HILDA ([facility]) Body mass index (BMI) [Ratio] 30.11 kg/m2 30.11 kg/m2 HILDA ([facility]) Systolic blood pressure 135 mm[Hg] 135 mm[Hg] A THENA ([facility]) Systolic blood pressure 135 mm[Hg] 135 mm[Hg] A THENA ([facility]) Systolic blood pressure 148 mm[Hg] 148 mm[Hg] A THENA ([facility]) Body weight 3539.2 [oz_av] 3539.2 [oz_av] ATHEN A ([facility]) Diastolic blood pressure 79 mm[Hg] 79 mm[Hg] HILDA ([facility]) Diastolic blood pressure 91 mm[Hg] 91 mm[Hg] HILDA ([facility]) Diastolic blood pressure 91 mm[Hg] 91 mm[Hg] HILDA ([facility]) Diastolic blood pressure 79 mm[Hg] 79 mm[Hg] HILDA ([facility]) Diastolic blood pressure 91 mm[Hg] 91 mm[Hg] HILDA ([facility]) Diastolic blood pressure 91 mm[Hg] 91 mm[Hg] HILDA ([facility]) Body height 72 [in_i] 72 [in_i] HILDA ([facility]) Body mass index (BMI) [Ratio] 30.11 kg/m2 30.11 kg/m2 HILDA ([facility]) Systolic blood pressure 135 mm[Hg] 135 mm[Hg] A THENA ([facility]) Systolic blood pressure 135 mm[Hg] 135 mm[Hg] A THENA ([facility]) Systolic blood pressure 148 mm[Hg] 148 mm[Hg] A [facility] ([facility]) Body weight 3539.2 [oz_av] 3539.2 [oz_av] ATHEN A ([facility]) Systolic blood pressure 135 mm[Hg] 135 mm[Hg] A THENA ([facility]) Systolic blood pressure 135 mm[Hg] 135 mm[Hg] A THENA ([facility]) Systolic blood pressure 148 mm[Hg] 148 mm[Hg] A THENA ([facility]) Body weight 3539.2 [oz_av] 3539.2 [oz_av] ATHEN A ([facility]) Diastolic blood pressure 79 mm[Hg] 79 mm[Hg] HILDA ([facility]) Diastolic blood pressure 91 mm[Hg] 91 mm[Hg] HILDA ([facility]) Diastolic blood pressure 91 mm[Hg] 91 mm[Hg] HILDA ([facility]) Body height 72 [in_i] 72 [in_i] HILDA ([facility]) Body mass index (BMI) [Ratio] 30.11 kg/m2 30.11 kg/m2 HILDA ([facility]) Diastolic blood pressure 79 mm[Hg] 79 mm[Hg] HILDA ([facility]) Diastolic blood pressure 91 mm[Hg] 91 mm[Hg] HILDA ([facility]) Diastolic blood pressure 91 mm[Hg] 91 mm[Hg] HILDA ([facility]) Body height 72 [in_i] 72 [in_i] HILDA ([facility]) Body mass index (BMI) [Ratio] 30.11 kg/m2 30.11 kg/m2 HILDA ([facility]) Systolic blood pressure 135 mm[Hg] 135 mm[Hg] A THENA ([facility]) Systolic blood pressure 135 mm[Hg] 135 mm[Hg] A THENA ([facility]) Systolic blood pressure 148 mm[Hg] 148 mm[Hg] A THENA ([facility]) Body weight 3539.2 [oz_av] 3539.2 [oz_av] ERNESTINA A ([facility]) Patient Treatment Plan of Care Planned Activity Planned Date Details Description Data Source (s) Amoxicillin 875 MG / Clavulanate 125 MG Oral Tablet 04/02/19 21 12:00:00 AM EST HILDA ([facility]) Amoxicillin 875 MG / Clavulanate 125 MG Oral Tablet 04/02/19 21 12:00:00 AM EST HILDA ([facility]) Amoxicillin 875 MG / Clavulanate 125 MG Oral Tablet 04/02/19 21 12:00:00 AM EST HILDA ([facility]) Amoxicillin 875 MG / Clavulanate 125 MG Oral Tablet 04/02/19 21 12:00:00 AM EST HILDA ([facility]) Amoxicillin 875 MG / Clavulanate 125 MG Oral Tablet 04/02/19 21 12:00:00 AM EST HILDA ([facility]) Amoxicillin 875 MG / Clavulanate 125 MG Oral Tablet 04/02/19 21 12:00:00 AM EST HILDA ([facility]) Amoxicillin 875 MG / Clavulanate 125 MG Oral Tablet 04/02/19 21 12:00:00 AM EST HILDA ([facility]) Amoxicillin 875 MG / Clavulanate 125 MG Oral Tablet 04/02/19 21 12:00:00 AM EST HILDA ([facility]) Amoxicillin 875 MG / Clavulanate 125 MG Oral Tablet 04/02/19 21 12:00:00 AM EST HILDA ([facility]) Amoxicillin 875 MG / Clavulanate 125 MG Oral Tablet 04/02/19 21 12:00:00 AM EST HILDA ([facility]) Amoxicillin 875 MG / Clavulanate 125 MG Oral Tablet 04/02/19 21 12:00:00 AM EST HILDA ([facility]) Amoxicillin 875 MG / Clavulanate 125 MG Oral Tablet 04/02/19 21 12:00:00 AM EST HILDA ([facility]) Amoxicillin 875 MG / Clavulanate 125 MG Oral Tablet 04/02/19 21 12:00:00 AM EST HILDA ([facility]) Amoxicillin 875 MG / Clavulanate 125 MG Oral Tablet 04/02/19 21 12:00:00 AM EST HILDA ([facility]) Amoxicillin 875 MG / Clavulanate 125 MG Oral Tablet 04/02/19 21 12:00:00 AM EST HILDA ([facility]) Amoxicillin 875 MG / Clavulanate 125 MG Oral Tablet 04/02/19 21 12:00:00 AM EST HILDA ([facility]) Amoxicillin 875 MG / Clavulanate 125 MG Oral Tablet 04/02/19 21 12:00:00 AM EST HILDA ([facility]) Amoxicillin 875 MG / Clavulanate 125 MG Oral Tablet 04/02/19 21 12:00:00 AM EST [place] ([facility]) Amoxicillin 875 MG / Clavulanate 125 MG Oral Tablet 04/02/19 21 12:00:00 AM EST HILDA ([facility]) Amoxicillin 875 MG / Clavulanate 125 MG Oral Tablet 04/02/19 21 12:00:00 AM EST HILDA ([facility]) Amoxicillin 875 MG / Clavulanate 125 MG Oral Tablet 04/02/19 21 12:00:00 AM EST HILDA ([facility]) Amoxicillin 875 MG / Clavulanate 125 MG Oral Tablet 04/02/19 21 12:00:00 AM EST [place] ([facility]) Amoxicillin 875 MG / Clavulanate 125 MG Oral Tablet 04/02/19 21 12:00:00 AM EST [place] ([facility]) Escitalopram 10 MG Oral Tablet [Lexapro] 10/28/2019 12:00:00 AM EDT HILDA ([facility]) Escitalopram 10 MG Oral Tablet [Lexapro] 10/28/2019 12:00:00 AM EDT HILDA ([facility]) Escitalopram 10 MG Oral Tablet [Lexapro] 10/28/2019 12:00:00 AM EDT HILDA ([facility]) Escitalopram 10 MG Oral Tablet [Lexapro] 10/28/2019 12:00:00 AM EDT HIL[facility] ([facility]) Escitalopram 10 MG Oral Tablet [Lexapro] 10/28/2019 12:00:00 AM EDT [facility]IL[facility] ([facility]) Escitalopram 10 MG Oral Tablet [Lexapro] 10/28/2019 12:00:00 AM EDT [place] ([facility]) Escitalopram 10 MG Oral Tablet [Lexapro] 10/28/2019 12:00:00 AM EDT [facility]IL[facility] ([facility]) Escitalopram 10 MG Oral Tablet [Lexapro] 10/28/2019 12:00:00 AM EDT HILDA ([facility]) Escitalopram 10 MG Oral Tablet [Lexapro] 10/28/2019 12:00:00 AM EDT HILDA ([facility]) Escitalopram 10 MG Oral Tablet [Lexapro] 10/28/2019 12:00:00 AM EDT [facility]IL[facility] ([facility]) Escitalopram 10 MG Oral Tablet [Lexapro] 10/28/2019 12:00:00 AM EDT HILDA ([facility]) Escitalopram 10 MG Oral Tablet [Lexapro] 10/28/2019 12:00:00 AM EDT HILDA ([facility]) Escitalopram 10 MG Oral Tablet [Lexapro] 10/28/2019 12:00:00 AM EDT HILDA ([facility]) Escitalopram 10 MG Oral Tablet [Lexapro] 10/28/2019 12:00:00 AM EDT HILDA ([facility]) Escitalopram 10 MG Oral Tablet [Lexapro] 10/28/2019 12:00:00 AM EDT [facility]IL[facility] ([facility]) Escitalopram 10 MG Oral Tablet [Lexapro] 10/28/2019 12:00:00 AM EDT [place] ([facility]) Escitalopram 10 MG Oral Tablet [Lexapro] 10/28/2019 12:00:00 AM EDT [place] ([facility]) Escitalopram 10 MG Oral Tablet [Lexapro] 10/28/2019 12:00:00 AM EDT [place] ([facility]) Escitalopram 10 MG Oral Tablet [Lexapro] 10/28/2019 12:00:00 AM EDT [place] ([facility]) Escitalopram 10 MG Oral Tablet [Lexapro] 10/28/2019 12:00:00 AM EDT [place] ([facility]) Escitalopram 10 MG Oral Tablet [Lexapro] 10/28/2019 12:00:00 AM EDT [place] ([facility]) Escitalopram 10 MG Oral Tablet [Lexapro] 10/28/2019 12:00:00 AM EDT [place] ([facility]) Escitalopram 10 MG Oral Tablet [Lexapro] 10/28/2019 12:00:00 AM EDT [place] ([facility]) Escitalopram 10 MG Oral Tablet [Lexapro] 09/10/2019 12:00:00 AM EDT [place] ([facility]) Escitalopram 10 MG Oral Tablet [Lexapro] 09/10/2019 12:00:00 AM EDT [place] ([facility]) Trazodone Hydrochloride 50 MG Oral Tablet [facility] ([facility]) Sumatriptan 25 MG Oral Tablet [place] ([facility]) Omeprazole 20 MG Delayed Release Oral Capsule [facility]ILDA ([facility]) Lorazepam 1 MG Oral Tablet A THENA ([facility]) Hydroxyzine Hydrochloride 25 MG Oral Tablet [facility]ILDA ([facility]) fluticasone propionate 50 mcg/actuation nasal spray,suspension [place] 1 spray every day by intranasal route as needed. HILDA ([facility]) cetirizine hydrochloride 10 MG Oral Tablet [facility]DA ([facility]) albuterol sulfate HFA 90 mcg/actuation a erosol inhaler INHALE 2 PUFFS BY MOUTH EVERY 4 HOURS NEEDED HILDA ( [facility]) Trazodone Hydrochloride 50 MG Oral Tablet [facility] ([facility]) Sumatriptan 25 MG Oral Tablet [facility] ([facility]) Omeprazole 20 MG Delayed Release Oral Capsule HILDA ([facility]) Lorazepam 1 MG Oral Tablet A THENA ([facility]) Hydroxyzine Hydrochloride 25 MG Oral Tablet HILDA ([facility]) fluticasone propionate 50 mcg/actuation nasal spray,suspension [place] 1 spray every day by intranasal route as needed. HILDA ([facility]) cetirizine hydrochloride 10 MG Oral Tablet HILDA ([facility]) albuterol sulfate HFA 90 mcg/actuation a erosol inhaler INHALE 2 PUFFS BY MOUTH EVERY 4 HOURS NEEDED [facility]DA ( [facility]) cetirizine hydrochloride 10 MG Oral Tablet [facility] ([facility]) Trazodone Hydrochloride 50 MG Oral Tablet [facility] ([facility]) cetirizine hydrochloride 10 MG Oral Tablet [facility] ([facility]) Trazodone Hydrochloride 50 MG Oral Tablet [facility] ([facility]) cetirizine hydrochloride 10 MG Oral Tablet [facility] ([facility]) Trazodone Hydrochloride 50 MG Oral Tablet [facility] ([facility]) cetirizine hydrochloride 10 MG Oral Tablet [facility] ([facility]) Trazodone Hydrochloride 50 MG Oral Tablet [facility] ([facility]) cetirizine hydrochloride 10 MG Oral Tablet [facility] ([facility]) Trazodone Hydrochloride 50 MG Oral Tablet [facility] ([facility]) cetirizine hydrochloride 10 MG Oral Tablet [facility] ([facility]) Trazodone Hydrochloride 50 MG Oral Tablet [facility] ([facility]) cetirizine hydrochloride 10 MG Oral Tablet [facility] ([facility]) Trazodone Hydrochloride 50 MG Oral Tablet [facility] ([facility]) cetirizine hydrochloride 10 MG Oral Tablet [facility] ([facility]) Trazodone Hydrochloride 50 MG Oral Tablet [facility] ([facility]) cetirizine hydrochloride 10 MG Oral Tablet [facility] ([facility]) Trazodone Hydrochloride 50 MG Oral Tablet [facility] ([facility]) cetirizine hydrochloride 10 MG Oral Tablet [facility] ([facility]) Trazodone Hydrochloride 50 MG Oral Tablet [facility] ([facility]) cetirizine hydrochloride 10 MG Oral Tablet [facility] ([facility]) Trazodone Hydrochloride 50 MG Oral Tablet [facility] ([facility]) cetirizine hydrochloride 10 MG Oral Tablet [facility] ([facility]) Trazodone Hydrochloride 50 MG Oral Tablet [facility] ([facility]) cetirizine hydrochloride 10 MG Oral Tablet [facility] ([facility]) Trazodone Hydrochloride 50 MG Oral Tablet [facility] ([facility]) cetirizine hydrochloride 10 MG Oral Tablet [facility] ([facility]) Trazodone Hydrochloride 50 MG Oral Tablet [facility] ([facility]) cetirizine hydrochloride 10 MG Oral Tablet [facility] ([facility]) Trazodone Hydrochloride 50 MG Oral Tablet [facility] ([facility]) cetirizine hydrochloride 10 MG Oral Tablet [facility] ([facility]) Trazodone Hydrochloride 50 MG Oral Tablet [facility] ([facility]) cetirizine hydrochloride 10 MG Oral Tablet [facility] ([facility]) Trazodone Hydrochloride 50 MG Oral Tablet [facility] ([facility]) cetirizine hydrochloride 10 MG Oral Tablet [facility] ([facility]) Trazodone Hydrochloride 50 MG Oral Tablet [facility] ([facility]) Trazodone Hydrochloride 50 MG Oral Tablet [facility] ([facility]) Trazodone Hydrochloride 50 MG Oral Tablet [facility] ([facility]) Trazodone Hydrochloride 50 MG Oral Tablet [facility] ([facility]) Hydroxyzine Hydrochloride 10 MG Oral Tablet [facility] ([facility]) Escitalopram 10 MG Oral Tablet [facility] ([facility]) Trazodone Hydrochloride 50 MG Oral Tablet [facility] ([facility]) Hydroxyzine Hydrochloride 10 MG Oral Tablet [facility] ([facility]) Escitalopram 10 MG Oral Tablet [facility] ([facility]) Trazodone Hydrochloride 50 MG Oral Tablet [facility] ([facility]) Hydroxyzine Hydrochloride 10 MG Oral Tablet [facility] ([facility]) Escitalopram 10 MG Oral Tablet [facility] ([facility]) Trazodone Hydrochloride 50 MG Oral Tablet [facility] ([facility]) Hydroxyzine Hydrochloride 10 MG Oral Tablet [facility] ([facility]) Escitalopram 10 MG Oral Tablet [facility] ([facility]) Hydroxyzine Hydrochloride 10 MG Oral Tablet [facility] ([facility]) Escitalopram 10 MG Oral Tablet [facility] ([facility]) Hydroxyzine Hydrochloride 10 MG Oral Tablet [facility] ([facility]) Escitalopram 10 MG Oral Tablet [facility] ([facility]) Hydroxyzine Hydrochloride 10 MG Oral Tablet [facility] ([facility]) Escitalopram 10 MG Oral Tablet [facility] ([facility]) Hydroxyzine Hydrochloride 10 MG Oral Tablet [facility] ([facility]) Escitalopram 10 MG Oral Tablet [facility] ([facility]) Hydroxyzine Hydrochloride 10 MG Oral Tablet [facility] ([facility]) Escitalopram 10 MG Oral Tablet [facility] ([facility]) Hydroxyzine Hydrochloride 10 MG Oral Tablet [facility] ([facility]) Escitalopram 10 MG Oral Tablet [facility] ([facility]) Trazodone Hydrochloride 50 MG Oral Tablet [facility] ([facility]) cetirizine hydrochloride 10 MG Oral Tablet I[facility] ([facility])
[2020-11-26 13:29] LABS: CK-MB VALUE MASS < 1.0 NG/ML (<3.6); CPK CREATINE PHOSPHOKINASE 68 U/L (39-308); MB/CK RELATIVE INDEX 1.47 (< OR =4); TROPONIN I < 0.02 NG/ML (< 0.10)
[2020-11-26] MEDS ORDERED: IBUP80TA PO (13:40)
[2020-11-26] MEDS ORDERED: CYCL-707 PO (13:40)
[2020-11-26 14:00] VITALS: BP 129/74
== END 2020-11-26 14:00 | disposition home or self-care (01) ==
LOC: M ED 10:10
DX: M62.830 Muscle spasm of back (principal); F41.9 Anxiety disorder, unspecified; Z79.899 Other long term (current) drug therapy; Z98.890 Other specified postprocedural states

== ENCOUNTER 2020-11-30 09:45 | Emergency (ER) | payer BC ==
[~2020-11-30] VITALS: Ht 182.9 cm; Wt 101.5 kg
[2020-11-30] MEDS ORDERED: LORA-674 (09:53)
--- OUTSIDE RECORDS SUMMARY | 2020-11-30 10:07 | CCD ---
Author Author [facility] Organization [facility] Address Unknown Phone Unavailable Care Team Providers Care Vice President [employer] Name Role Phone Arsh Melissa MD Unavailable [...] PALOMO DONAHUE Unavailable Unavailable LOVE E PALOMO DONHAUE Unavailable Unavailable LOVE E PALOMO DONAHUE Unavailable [...] LOVE MD Unavailable Unavailable Merlene Sadler Unavailable [phone] Goldsmith, Moon Ceballos MD Unavailable Unavailable Goldsmith, [...] CHAYO Unavailable Unavailable DICKERSON, CHAYO Unavailable Unavailable DICKRESON, CHAYO Unavailable Unavailable DICKERSON, CHAYO Unavailable Unavailable [...] is protected by Article 27-F of the [facility] Public Health law. If you continue you may have access to information: Regarding HIV / AIDS; Provided by facilities licensed or operated by the [facility] Office of Mental Health; or Provided by the [facility] Office for People With Developmental Disabilities. If such information is present, then the following [facility] mandated warning applies: This information has been [...] law may result in a fine or mcfp sentence or both. A general authorization for the release of medical or other information is NOT sufficient authorization for further disc losure. Allergies and Adverse Reactions Type Description Substance Reaction Status Data Source(s ) Allergy to substance Allergy to substance Allergy to substance [facility] ([facility]) Allergy to substance Allergy to substance Allergy to substance [facility] ([facility]) Encounters Encounter Providers Location Date Indications Data Source(s ) Merlene Sadler LMSW: [address], [place] [address], Ph. Attender: Merlene Sadler [facility] Medical 11/24/2020 12:00:00 AM EDT [place] ([facility]) Terry Quiroga, RPA-C: [address], [place] [address], Ph. Attender: TERRY QUIROGA RPA-C [facility] Medical 11/22/2020 12:00:00 AM EDT [facility] ([facility]) Terry Quiroga RPA-C: [address], [place] [address], Ph. Attender: TERRY QUIROGA RPA-C [facility] Medical 11/22/2020 12:00:00 AM EDT [facility] ([facility]) Merlene Sadler, ELECTRICIAN BUS: [address], [place] [address], Ph. Attender: Merlene Sadler [facility] Medical 10/28/2020 12:00:00 AM EDT [place] ([facility]) Merlene Sadler, ELECTRICIAN BUS: [address], [place] [address], Ph. Attender: Merlene Sadler [facility] Medical 10/28/2020 12:00:00 AM EDT [place] ([facility]) Merlene Sadler, ELECTRICIAN BUS: [address], [place] [address], Ph. Attender: Merlene Sadler [facility] Medical 10/28/2020 12:00:00 AM EDT [place] ([facility]) Merlene Davisjeffrey, ELECTRICIAN BUS: [address], [place] [address], Ph. Attender: Merlene Sadler [facility] Medical 10/07/2020 12:00:00 AM EDT [place] ([facility]) Merlene Sadler, ELECTRICIAN BUS: [address], [place] [address], Ph. Attender: Merlene Sadler [facility] Medical 10/07/2020 12:00:00 AM EDT [place] ([facility]) Merlene Sadler, ELECTRICIAN BUS: [address], [place] [address], Ph. Attender: Merlene Sadler [facility] Medical 10/07/2020 12:00:00 AM EDT [place] ([facility]) Merlene Sadler, ELECTRICIAN BUS: [address], [place] [address], Ph. Attender: Merlene Sadler [facility] Medical 10/07/2020 12:00:00 AM EDT [place] ([facility]) Merlene Sadler, ELECTRICIAN BUS: [address], [place] [address], Ph. Attender: Merlene Sadler [facility] Medical 09/23/2020 12:00:00 AM EDT [place] ([facility]) Merlene Sadler, ELECTRICIAN BUS: [address], [place] [address], Ph. Attender: Merlene Sadler [facility] Medical 09/23/2020 12:00:00 AM EDT [place] ([facility]) Merlene Sadler, ELECTRICIAN BUS: [address], [place] [address], Ph. Attender: Merlene Sadler [facility] Medical 09/23/2020 12:00:00 AM EDT [place] ([facility]) Merlene Sadler, ELECTRICIAN BUS: [address], [place] [address], Ph. Attender: Merlene Sadler [facility] Medical 09/23/2020 12:00:00 AM EDT [place] ([facility]) Merlene Sadler, ELECTRICIAN BUS: [address], [place] [address], Ph. Attender: Merlene Sadler [facility] Medical 09/23/2020 12:00:00 AM EDT [place] ([facility]) Merlene Sadler, ELECTRICIAN BUS: [address], [place] [address], Ph. Attender: Merlene Sadler [facility] Medical 09/09/2020 12:00:00 AM EDT [place] ([facility]) Merlene Sadler, ELECTRICIAN BUS: [address], [place] [address], Ph. Attender: Merlene Sadler [facility] Medical 09/09/2020 12:00:00 AM EDT [place] ([facility]) Merlene Sadler, ELECTRICIAN BUS: [address], [place] [address], Ph. Attender: Merlene Sadler [facility] Medical 09/09/2020 12:00:00 AM EDT [place] ([facility]) Merlene Sadler, ELECTRICIAN BUS: [address], [place] [address], Ph. Attender: Merlene Sadler [facility] Medical 09/09/2020 12:00:00 AM EDT [place] ([facility]) Merlene Sadler, ELECTRICIAN BUS: [address], [place] [address], Ph. Attender: Merlene Sadler [facility] Medical 09/09/2020 12:00:00 AM EDT [place] ([facility]) Merlene Sadler, [facility]: [address], [place] [address], Ph. Attender: Merlene Sadler [facility] Medical 09/09/2020 12:00:00 AM EDT [place] ([facility]) Merlene Sadler ELECTRICIAN BUS: [address], [place] [address], Ph. Attender: Merlene Sadler [facility] Medical 08/26/2020 12:00:00 AM EDT [place] ([facility]) Merlene Sadler, ELECTRICIAN BUS: [address], [place] [address], Ph. Attender: Merlene Sadler [facility] Medical 08/26/2020 12:00:00 AM EDT [place] ([facility]) Merlene Sadler ELECTRICIAN BUS: [address], [place] [address], Ph. Attender: Merlene Sadler [facility] Medical 08/26/2020 12:00:00 AM EDT [place] ([facility]) Merlene Sadler ELECTRICIAN BUS: [address], [place] [address], Ph. Attender: Merlene Sadler [facility] Medical 08/26/2020 12:00:00 AM EDT [place] ([facility]) Merlene Sadler, ELECTRICIAN BUS: [address], [place] [address], Ph. Attender: Merlene Sadler [facility] Medical 08/26/2020 12:00:00 AM EDT [place] ([facility]) Merlene Sadler, [facility]: [address], [place] [address], Ph. Attender: Merlene Sadler [facility] Medical 08/26/2020 12:00:00 AM EDT [place] ([facility]) Merlene Sadler LMSW: [address], [place] [address], Ph. Attender: Merlene Sadler [facility] Medical 08/26/2020 12:00:00 AM EDT [place] ([facility]) Merlene Sadler, ELECTRICIAN BUS: [address], [place] [address], Ph. Attender: Merlene Sadler [facility] Medical 08/18/2020 12:00:00 AM EDT [place] ([facility]) Merlene Sadler [facility]: [address], [place] [address], Ph. Attender: Merlene Sadler [facility] Medical 08/18/2020 12:00:00 AM EDT [place] ([facility]) Merlene Sadler ELECTRICIAN BUS: [address], [place] [address], Ph. Attender: Merlene Sadler [facility] Medical 08/18/2020 12:00:00 AM EDT [place] ([facility]) Merlene Sadler, ELECTRICIAN BUS: [address], [place] [address], Ph. Attender: Merlene Sadler [facility] Medical 08/18/2020 12:00:00 AM EDT [place] ([facility]) Merlene Sadler, ELECTRICIAN BUS: [address], [place] [address], Ph. Attender: Merlene Sadler [facility] Medical 08/18/2020 12:00:00 AM EDT [place] ([facility]) Merlene Sadler LMSW: [address], [place] [address], Ph. Attender: Merlene Sadler [facility] Medical 08/18/2020 12:00:00 AM EDT [place] ([facility]) Merlene Sadler, ELECTRICIAN BUS: [address], [place] [address], Ph. Attender: Merlene Sadler [facility] Medical 08/18/2020 12:00:00 AM EDT [place] ([facility]) Merlene Sadler, ELECTRICIAN BUS: [address], [place] [address], Ph. Attender: Merlene Sadler [facility] Medical 08/18/2020 12:00:00 AM EDT [place] ([facility]) Merlene Sadler, ELECTRICIAN BUS: [address], [place] [address], Ph. Attender: Merlene Sadler [facility] Medical 08/18/2020 12:00:00 AM EDT [place] ([facility]) Merlene Sadler, [facility]: [address], [place] [address], Ph. Attender: Merlene Sadler [facility] Medical 08/18/2020 12:00:00 AM EDT [place] ([facility]) Herbert Melissa MD: [address] [place] [address], Ph. Attender: Herbert Melissa MD [facility] Medical 08/12/2020 12:00:00 AM EDT [place] ([facility]) Merlene Sadler [facility]: [address], [place] [address], Ph. Attender: Merlene Sadler [facility] Medical 08/12/2020 12:00:00 AM EDT [place] ([facility]) Herbert Melissa MD: [address] [place] [address], Ph. Attender: Herbert Melissa MD [facility] Medical 08/12/2020 12:00:00 AM EDT [place] ([facility]) Merlene Sadler, [facility]: [address], [place] [address], Ph. Attender: Merlene Sadler [facility] Medical 08/12/2020 12:00:00 AM EDT [place] ([facility]) Herbert Melissa MD: [address] [place] [address], Ph. Attender: Herbert Melissa MD [facility] Medical 08/12/2020 12:00:00 AM EDT [place] ([facility]) Merlene Sadler [facility]: [address], [place] [address], Ph. Attender: Merlene Doroteo [facility] Medical 08/12/2020 12:00:00 AM EDT [place] ([facility]) Herbert Melissa MD: [address], [place] [address], Ph. Attender: Herbert Melissa MD [facility] Medical 08/12/2020 12:00:00 AM EDT [place] ([facility]) Merlene ELISE SadlerSW: [address], [place] [address], Ph. Attender: Merlene Sadler [facility] Medical 08/12/2020 12:00:00 AM EDT [place] ([facility]) Herbert Melissa MD: [address] [place] [address], Ph. Attender: Herbert Melissa MD [facility] Medical 08/12/2020 12:00:00 AM EDT [place] ([facility]) Merlene Sadler LMSW: [address], [place] [address], Ph. Attender: Merlene Sadler [facility] Medical 08/12/2020 12:00:00 AM EDT [place] ([facility]) Herbert Melissa MD: [address] [place] [address], Ph. Attender: Herbert Melissa MD [facility] Medical 08/12/2020 12:00:00 AM EDT [place] ([facility]) Merlene Pupillo, ELECTRICIAN BUS: [address], [place] [address], Ph. Attender: Merlene Sadler [facility] Medical 08/12/2020 12:00:00 AM EDT [place] ([facility]) Herbert Melissa MD: [address], [place] [address], Ph. Attender: Herbert Melissa MD [facility] Medical 08/12/2020 12:00:00 AM EDT [place] ([facility]) Merlene Sadler, [facility]: [address], [place] [address], Ph. Attender: Merlene Davisjeffrey [facility] Medical 08/12/2020 12:00:00 AM EDT [place] ([facility]) Herbert Melissa MD: [address] [place] [address], Ph. Attender: Herbert Melissa MD [facility] Medical 08/12/2020 12:00:00 AM EDT [place] ([facility]) Merlene Sadler, [facility]: [address], [place] [address], Ph. Attender: Merlene Davisjeffrey [facility] Medical 08/12/2020 12:00:00 AM EDT [place] ([facility]) Herbert Melissa MD: [address] [place] [address], Ph. Attender: Herbert Melissa MD [facility] Medical 08/12/2020 12:00:00 AM EDT [place] ([facility]) Merlene Sadler, ELECTRICIAN BUS: [address], [place] [address], Ph. Attender: Merlene Sadler [facility] Medical 08/12/2020 12:00:00 AM EDT [place] ([facility]) Herbert Melissa MD: [address] [place] [address], Ph. Attender: Herbert Melissa MD [facility] Medical 08/12/2020 12:00:00 AM EDT [place] ([facility]) Merlene Sadler, ELECTRICIAN BUS: [address], [place] [address], Ph. Attender: Merlene Sadler [facility] Medical 08/12/2020 12:00:00 AM EDT [place] ([facility]) Herbert Melissa MD: [address] [place] [address], Ph. Attender: Herbert Melissa MD [facility] Medical 08/12/2020 12:00:00 AM EDT [place] ([facility]) Merlene Sadler, [facility]: [address], [place] [address], Ph. Attender: Merlene Sadler [facility] Medical 08/12/2020 12:00:00 AM EDT [place] ([facility]) Merlene Sadler, [facility]: [address], [place] [address], Ph. Attender: Merlene Sadler [facility] Medical 08/05/2020 12:00:00 AM EDT [place] ([facility]) Merlene Sadler, [employer]LECT[employer]ICIAN [employer]: [address], [place] [address], Ph. Attender: Merlene Sadler [facility] Medical 08/05/2020 12:00:00 AM EDT [place] ([facility]) Merlene Sadler, ELECTRICIAN BUS: [address], [place] [address], Ph. Attender: Merlene Sadler [facility] Medical 08/05/2020 12:00:00 AM EDT [place] ([facility]) Merlene Sadler, ELECTRICIAN BUS: [address], [place] [address], Ph. Attender: Merlene Sadler [facility] Medical 08/05/2020 12:00:00 AM EDT [place] ([facility]) Merlene Sadler, ELECTRICIAN BUS: [address], [place] [address], Ph. Attender: Merlene Sadler [facility] Medical 08/05/2020 12:00:00 AM EDT [place] ([facility]) Merlene Sadler, ELECT[employer]ICIAN BUS: [address], [place] [address], Ph. Attender: Merlene Sadler [facility] Medical 08/05/2020 12:00:00 AM EDT [place] ([facility]) Merlene Sadler, ELECTRICIAN BUS: [address], [place] [address], Ph. Attender: Merlene Sadler [facility] Medical 08/05/2020 12:00:00 AM EDT [place] ([facility]) Merlene Sadler, ELECT[employer]ICIAN BUS: [address], [place] [address], Ph. Attender: Merlene Sadler [facility] Medical 08/05/2020 12:00:00 AM EDT [place] ([facility]) Merlene Sadler, [facility]: [address], [place] [address], Ph. Attender: Merlene Sadler [facility] Medical 08/05/2020 12:00:00 AM EDT [place] ([facility]) Merlene Sadler, [employer]LECT[employer]ICIAN BUS: [address], [place] [address], Ph. Attender: Merlene Sadler [facility] Medical 08/05/2020 12:00:00 AM EDT [place] ([facility]) Merlene Sadler, ELECT[employer]ICIAN BUS: [address], [place] [address], Ph. Attender: Merlene Sadler [facility] Medical 08/05/2020 12:00:00 AM EDT [place] ([facility]) Merlene Sadler, ELECT[employer]ICIAN BUS: [address], [place] [address], Ph. Attender: Merlene Sadler [facility] Medical 08/05/2020 12:00:00 AM EDT [place] ([facility]) Merlene Sadler ELECT[employer]ICIAN BUS: [address], [place] [address], Ph. Attender: Merlene Sadler [facility] Medical 07/29/2020 12:00:00 AM EDT [place] ([facility]) Merlene Sadler, [employer]LECT[employer]: [address], [place] [address], Ph. Attender: Merlene Sadler [facility] Medical 07/29/2020 12:00:00 AM EDT [place] ([facility]) Merlene Sadler, [facility]: [address], [place] [address], Ph. Attender: Merlene Sadler [facility] Medical 07/29/2020 12:00:00 AM EDT [place] ([facility]) Merlene Sadler [facility]: [address], [place] [address], Ph. Attender: Merlene Sadler [facility] Medical 07/29/2020 12:00:00 AM EDT [place] ([facility]) Merlene Sadler, [facility]: [address], [place] [address], Ph. Attender: Merlene Sadler [facility] Medical 07/29/2020 12:00:00 AM EDT [place] ([facility]) Merlene Sadler, [facility]: [address], [place] [address], Ph. Attender: Merlene Sadler [facility] Medical 07/29/2020 12:00:00 AM EDT [place] ([facility]) Merlene Sadler [facility]: [address], [place] [address], Ph. Attender: Merlene Sadler [facility] Medical 07/29/2020 12:00:00 AM EDT [place] ([facility]) Merlene Sadler, [facility]: [address], [place] [address], Ph. Attender: Merlene Sadler [facility] Medical 07/29/2020 12:00:00 AM EDT [place] ([facility]) Merlene Sadler, [facility]: [address], [place] [address], Ph. Attender: Merlene Sadler [facility] Medical 07/29/2020 12:00:00 AM EDT [place] ([facility]) Merlene Sadler [employer]: [address], [place] [address], Ph. Attender: Merlene Sadler [facility] Medical 07/29/2020 12:00:00 AM EDT [place] ([facility]) Merlene Sadler, [employer]: [address], [place] [address], Ph. Attender: Merlene Sadler [facility] Medical 07/29/2020 12:00:00 AM EDT [place] ([facility]) Merlene Sadler, [employer]: [address], [place] [address], Ph. Attender: Merlene Sadler [facility] Medical 07/29/2020 12:00:00 AM EDT [place] ([facility]) Merlene Sadler [facility]: [address], [place] [address], Ph. Attender: Merlene Sadler [facility] Medical 07/29/2020 12:00:00 AM EDT HILDA ([facility]) Merlene Sadler, [employer]: [address], [place] [address], Ph. Attender: Merlene Sadler [facility] Medical 07/22/2020 12:00:00 AM EDT HILDA ([facility]) Herbert Melissa MD: [address] [place] [address], Ph. Attender: Herbert Melissa MD [facility] Medical 07/22/2020 12:00:00 AM EDT HILDA ([facility]) Merlene Sadler, [facility]: [address], [address], [place], [place] [address], Ph. Attender: Merlenemarie Sadler [facility] Medical 07/22/2020 12:00:00 AM EDT HILDA ([facility]) Herbert Melissa MD: [address] [place] [address], Ph. Attender: Herbert Melissa MD [facility] Medical 07/22/2020 12:00:00 AM EDT HILDA ([facility]) Merlene Sadler [facility]: [address], [place] [address], Ph. Attender: Merlene Davisjeffrey [facility] Medical 07/22/2020 12:00:00 AM EDT [place] ([facility]) Herbert Melissa MD: [address] [place] [address], Ph. Attender: Herbert Melissa MD [facility] Medical 07/22/2020 12:00:00 AM EDT HILDA ([facility]) Merlene Davisjeffrey [facility]: [address], [place] [address], Ph. Attender: Merlene Ryanjeffrey [facility] Medical 07/22/2020 12:00:00 AM EDT HILDA ([facility]) Herbert Melissa MD: [address] [place] [address], Ph. Attender: Herbert Melissa MD [facility] Medical 07/22/2020 12:00:00 AM EDT HILDA ([facility]) Merlene Sadler, [facility]: [address], [place] [address], Ph. Attender: Merlene Sadler [facility] Medical 07/22/2020 12:00:00 AM EDT HILDA ([facility]) Herbert Melissa MD: [address] [place] [address], Ph. Attender: Herbert Melissa MD [facility] Medical 07/22/2020 12:00:00 AM EDT HILDA ([facility]) Merlene Sadler [facility]: [address], [place] [address], Ph. Attender: Merlene Davisjeffrey [facility] Medical 07/22/2020 12:00:00 AM EDT HILDA ([facility]) Herbert Melissa MD: [address] [place] [address], Ph. Attender: Herbert Melissa MD [facility] Medical 07/22/2020 12:00:00 AM EDT HILDA ([facility]) Merlene Sadler, [facility]: [address], [place] [address], Ph. Attender: Merlene Davisjeffrey [facility] Medical 07/22/2020 12:00:00 AM EDT HILDA ([facility]) Herbert Melissa MD: [address] [place] [address], Ph. Attender: Herbert Melissa MD [facility] Medical 07/22/2020 12:00:00 AM EDT [place] ([facility]) Merlene Sadler, [facility]: [address], [place] [address], Ph. Attender: Merlene Sadler [facility] Medical 07/22/2020 12:00:00 AM EDT HILDA ([facility]) Herbert Melissa MD: [address] [place] [address], Ph. Attender: Herbert Melissa MD [facility] Medical 07/22/2020 12:00:00 AM EDT H[place]DA ([facility]) Herbert Melissa MD: [address] [place] [address], Ph. Attender: Herbert Melissa MD [facility] Medical 07/22/2020 12:00:00 AM EDT H[place]DA ([facility]) Merlene Sadler [employer]: [address], [place] [address], Ph. Attender: Merlene Davisjeffrey [facility] Medical 07/22/2020 12:00:00 AM EDT [place] ([facility]) Herbert Melissa MD: [address] [place] [address], Ph. Attender: Herbert Melissa MD [facility] Medical 07/22/2020 12:00:00 AM EDT HILDA ([facility]) Merlene Sadler [employer]: [address], [place] [address], Ph. Attender: Merlene Sadler [facility] Medical 07/22/2020 12:00:00 AM EDT H[place]DA ([facility]) Herbert Melissa MD: [address] [place] [address], Ph. Attender: Herbert Melissa MD [facility] Medical 07/22/2020 12:00:00 AM EDT H[place] ([facility]) Merlene Sadler, [facility]: [address], [address], [place] [address], Ph. Attender: Merlene Sadler [facility] Medical 07/22/2020 12:00:00 AM EDT H[place]DA ([facility]) Herbert Melissa MD: [address] [place] [address], Ph. Attender: Herbert Melissa MD [facility] Medical 07/22/2020 12:00:00 AM EDT H[place] ([facility]) Merlene Sadler [facility]: [address], [address], [place] [address], Ph. Attender: Merlene Sadler [facility] Medical 07/22/2020 12:00:00 AM EDT [place] ([facility]) Merlene Sadler, [facility]: [address], [address], [place] [address], Ph. Attender: Merlene Sadler [facility] Medical 07/22/2020 12:00:00 AM EDT H[place]DA ([facility]) Herbert Melissa MD: [address] [place] [address], Ph. Attender: Herbert Melissa MD [facility] Medical 07/22/2020 12:00:00 AM EDT H[place]DA ([facility]) Merlene Sadler, [facility]: [address], [address], [place] [address], Ph. Attender: Merlene Sadler [facility] Medical 07/22/2020 12:00:00 AM EDT [place] ([facility]) Herbert Melissa MD: [address] , [place] [address], Ph. Attender: Herbert Melissa MD [facility] Medical 07/22/2020 12:00:00 AM EDT HILDA ([facility]) Merlene Sadler, [employer]: [address], [address], [place] [address], Ph. Attender: Merlene Sadler [facility] Medical 07/01/2020 12:00:00 AM EDT [place] ([facility]) Merlene Sadler, [facility]: [address], [address], [place] [address], Ph. Attender: Merlene Sadler [facility] Medical 07/01/2020 12:00:00 AM EDT [place] ([facility]) Merlene Sadler, [facility]: [address], [address], [place] [address], Ph. Attender: Merlene Sadler [facility] Medical 07/01/2020 12:00:00 AM EDT HILDA ([facility]) Merlene Sadler, [facility]: [address], [address], [place] [address], Ph. Attender: Merlene Sadler [facility] Medical 07/01/2020 12:00:00 AM EDT H[place]DA ([facility]) Merlene Sadler, [facility]: [address], [address], [place] [address], Ph. Attender: Merleen Sadler [facility] Medical 07/01/2020 12:00:00 AM EDT H[place]DA ([facility]) Merlene Sadler, [employer]: [address], [address], [place] [address], Ph. Attender: Merlene Sadler [facility] Medical 07/01/2020 12:00:00 AM EDT H[place]DA ([facility]) Merlene Sadler, [employer]: [address], [address], [place] [address], Ph. Attender: Merlene Sadler [facility] Medical 07/01/2020 12:00:00 AM EDT H[place]DA ([facility]) Merlene Sadler, [employer]: [address], [place] [address], Ph. Attender: Merlene Sadler [facility] Medical 07/01/2020 12:00:00 AM EDT H[place]DA ([facility]) Merlene Sadler, [employer]: [address], [address], [place] [address], Ph. Attender: Merlene Sadler [facility] Medical 07/01/2020 12:00:00 AM EDT H[place] ([facility]) Merlene Sadler, [employer]: [address], [place] [address], Ph. Attender: Merlene Sadler [facility] Medical 07/01/2020 12:00:00 AM EDT H[place]DA ([facility]) Merlene Sadler, [employer]: [address], [place] [address], Ph. Attender: Merlene Sadler [facility] Medical 07/01/2020 12:00:00 AM EDT H[place]DA ([facility]) Merlene Sadler, [employer]: [address], [place] [address], Ph. Attender: Merlene Sadler [facility] Medical 07/01/2020 12:00:00 AM EDT H[place] ([facility]) Merlene Sadler, [employer]: [address], [address], [place] [address], Ph. Attender: Merlene Sadler [facility] Medical 07/01/2020 12:00:00 AM EDT H[place] ([facility]) Merlene Sadler, [employer]: [address], [address], [place] [address], Ph. Attender: Merlene Sadler [facility] Medical 07/01/2020 12:00:00 AM EDT H[place]DA ([facility]) Merlene Sadler, [employer]: [address], [address], [place] [address], Ph. Attender: Merlene Sadler [facility] Medical 07/01/2020 12:00:00 AM EDT H[place]DA ([facility]) Merlene Sadler, [employer]: [address], [place] [address], Ph. Attender: Merlene Sadler [facility] Medical 06/22/2020 12:00:00 AM EDT HILDA ([facility]) Merlene Sadler, [employer]: [address], [address], [place] [address], Ph. Attender: Merlene Sadler [facility] Medical 06/22/2020 12:00:00 AM EDT HILDA ([facility]) Merlene Sadler, [employer]: [address], [address], [place] [address], Ph. Attender: Merlene Sadler [facility] Medical 06/22/2020 12:00:00 AM EDT HILDA ([facility]) Merlene Sadler, [employer]: [address], [address], [place] [address], Ph. Attender: Merlene Sadler [facility] Medical 06/22/2020 12:00:00 AM EDT HILDA ([facility]) Merlene Sadler, [employer]: [address], [address], [place] [address], Ph. Attender: Merlene Sadler [facility] Medical 06/22/2020 12:00:00 AM EDT [place] ([facility]) Merlene Sadler, [employer]: [address], [address], [place] [address], Ph. Attender: Merlene Sadler [facility] Medical 06/22/2020 12:00:00 AM EDT [place] ([facility]) Merlene Sadler, [employer]: [address], [address], [place] [address], Ph. Attender: Merlene Sadler [facility] Medical 06/22/2020 12:00:00 AM EDT H[place]DA ([facility]) Merlene Sadler, [employer]: [address], [place] [address], Ph. Attender: Merlene Sadler [facility] Medical 06/22/2020 12:00:00 AM EDT H[place] ([facility]) Merlene Sadler, [employer]: [address], [place] [address], Ph. Attender: Merlene Sadler [facility] Medical 06/22/2020 12:00:00 AM EDT [place] ([facility]) Merlene Sadler, [employer]: [address], [place] [address], Ph. Attender: Merlene Sadler [facility] Medical 06/22/2020 12:00:00 AM EDT [place] ([facility]) Merlene Sadler, [employer]: [address], [place] [address], Ph. Attender: Merlene Sadler [facility] Medical 06/22/2020 12:00:00 AM EDT H[place] ([facility]) Merlene Sadler, [employer]: [address], [place] [address], Ph. Attender: Merlene Sadler [facility] Medical 06/22/2020 12:00:00 AM EDT [place] ([facility]) Merlene Sadler, [employer]: [address], [place] [address], Ph. Attender: Merlene Sadler [facility] Medical 06/22/2020 12:00:00 AM EDT H[place]DA ([facility]) Merlene Sadler, [employer]: [address], [place] [address], Ph. Attender: Merlene Sadler [facility] Medical 06/22/2020 12:00:00 AM EDT H[place] ([facility]) Merlene Sadler, [facility]: [address], [address], [place] [address], Ph. Attender: Merlene Sadler [facility] Medical 06/22/2020 12:00:00 AM EDT [place] ([facility]) Merlene Sadler, [employer]: [address], [place] [address], Ph. Attender: Merlene Sadler [facility] Medical 06/22/2020 12:00:00 AM EDT H[place] ([facility]) Merlene Sadler, [employer]: [address], [place] [address], Ph. Attender: Merlene Sadler [facility] Medical 06/17/2020 12:00:00 AM EDT H[place] ([facility]) Merlene Sadler, [employer]: [address], [place] [address], Ph. Attender: Merlene Sadler [facility] Medical 06/17/2020 12:00:00 AM EDT HILDA ([facility]) Merlene Sadler, [employer]: [address], [place] [address], Ph. Attender: Merlene Sadler [facility] Medical 06/17/2020 12:00:00 AM EDT H[place]DA ([facility]) Merlene Sadler, [employer]: [address], [place] [address], Ph. Attender: Merlene Sadler [facility] Medical 06/17/2020 12:00:00 AM EDT [place]DA ([facility]) Merlene Sadler, [facility]: [address], [address], [place] [address], Ph. Attender: Merlene Sadler [facility] Medical 06/17/2020 12:00:00 AM EDT H[place]DA ([facility]) Merlene Sadler, [employer]: [address], [place] [address], Ph. Attender: Merelne Sadler [facility] Medical 06/17/2020 12:00:00 AM EDT [place] ([facility]) Merlene Sadler, [employer]: [address], [place] [address], Ph. Attender: Merlene Sadler [facility] Medical 06/17/2020 12:00:00 AM EDT [place] ([facility]) Merlene Sadler, [employer]: [address], [place] [address], Ph. Attender: Merlene Sadler [facility] Medical 06/17/2020 12:00:00 AM EDT H[place]DA ([facility]) Merlene Sadler [employer]: [address], [place] [address], Ph. Attender: Merlene Sadler [facility] Medical 06/17/2020 12:00:00 AM EDT [place] ([facility]) Merlene Sadler, [employer]: [address], [place] [address], Ph. Attender: Merlene Sadler [facility] Medical 06/17/2020 12:00:00 AM EDT [place] ([facility]) Merlene Sadler, [facility]: [address], [place] [address], Ph. Attender: Merlene Sadler [facility] Medical 06/17/2020 12:00:00 AM EDT [place] ([facility]) Merlene Sadler [employer]: [address], [place] [address], Ph. Attender: Merlene Sadler [facility] Medical 06/17/2020 12:00:00 AM EDT [place] ([facility]) Merlene Sadler, [facility]: [address], [place] [address], Ph. Attender: Merlene Sadler [facility] Medical 06/17/2020 12:00:00 AM EDT [place] ([facility]) Merlene Sadler, [facility]: [address], [place] [address], Ph. Attender: Merlene Sadler [facility] Medical 06/17/2020 12:00:00 AM EDT [place] ([facility]) Merlene Sadler [facility]: [address], [place] [address], Ph. Attender: Merlene Sadler [facility] Medical 06/17/2020 12:00:00 AM EDT [place] ([facility]) Merlene Sadler, [employer]: [address], [place] [address], Ph. Attender: Merlene Sadler [facility] Medical 06/17/2020 12:00:00 AM EDT [place] ([facility]) Merlene Sadler, [employer]: [address], [place] [address], Ph. Attender: Merlene Sadler [facility] Medical 06/17/2020 12:00:00 AM EDT H[place] ([facility]) Outpatient Attender: Ruthie Sifuentes MD Main office - [facility] 05/20/2020 08:30:00 AM EDT MEDENT ([facility]) OFFICE OUTPATIENT NEW 30 MINUTES Attender: Tucker Goldsmith MD Physic al Therapy 05/14/2020 09:30:00 AM EDT MEDJUAN RAMON ([facility]) LESLY TalamantesW[facility]: [address], [place] [address], Ph. Attender: Sharon Bautista [facility] Medical 05/06/2020 12:00:00 AM EDT HILDA ([facility]) LESLY TalamantesW[facility]: [address], [address], [place] [address], Ph. Attender: Sharon Bautista [facility] Medical 05/06/2020 12:00:00 AM EDT HILDA ([facility]) LESLY TalamantesW-[facility]: [address], [address], [place] [address], Ph. Attender: Sharon Bautista [facility] Medical 05/06/2020 12:00:00 AM EDT HILDA ([facility]) LESLY TalamantesW[facility]: [address], [address], [place] [address], Ph. Attender: Sharon Bautista [facility] Medical 05/06/2020 12:00:00 AM EDT [place] ([facility]) LESLY TalamantesW-[facility]: [address], [address], [place] [address], Ph. Attender: Sharon Megagueromarilyalan [facility] Medical 05/06/2020 12:00:00 AM EDT [place] ([facility]) LESLY TalamantesW[facility]: [address], [address], [place] [address], Ph. Attender: Sharon Westmarilyalan [facility] Medical 05/06/2020 12:00:00 AM EDT [place] ([facility]) LESLY TalamantesW[facility]: [address], [address], [place] [address], Ph. Attender: Sharon Bautista [facility] Medical 05/06/2020 12:00:00 AM EDT [place] ([facility]) LESLY TalamantesW-R: [address], [address], [place] [address], Ph. Attender: Sharon Bautista [facility] Medical 05/06/2020 12:00:00 AM EDT [place] ([facility]) LESLY TalamantesW[facility]: [address], [address], [place] [address], Ph. Attender: Sharon Bautista [facility] Medical 05/06/2020 12:00:00 AM EDT [place] ([facility]) LESLY TalamantesW-R: [address], [address], [place] [address], Ph. Attender: Sharon Bautista [facility] Medical 05/06/2020 12:00:00 AM EDT HILDA ([facility]) SharonLESLY MccartneyW-R: [address], [address], [place] [address], Ph. Attender: Sharon Bautista [facility] Medical 05/06/2020 12:00:00 AM EDT [place] ([facility]) LESLY TalamantesW-R: [address], [address], [place] [address], Ph. Attender: Sharon Bautista [facility] Medical 05/06/2020 12:00:00 AM EDT [place] ([facility]) LESLY TalamantesW[facility]: [address], [address], [place] [address], Ph. Attender: Sharon Bautista [facility] Medical 05/06/2020 12:00:00 AM EDT [place] ([facility]) LESLY TalamantesW-R: [address], [address], [place] [address], Ph. Attender: Sharon Megagueromarilyalan [facility] Medical 05/06/2020 12:00:00 AM EDT [place] ([facility]) LESLY TalamantesW-R: [address], [address], [place] [address], Ph. Attender: Sharon Michele [facility] Medical 05/06/2020 12:00:00 AM EDT [place] ([facility]) LESLY TalamantesW-R: [address], [address], [place] [address], Ph. Attender: Sharon Bautista [facility] Medical 05/06/2020 12:00:00 AM EDT [place] ([facility]) SharonLESLY MccartneyW-R: [address], [place] [address], Ph. Attender: Sharon Bautista [facility] Medical 05/06/2020 12:00:00 AM EDT [place] ([facility]) LESLY TalamantesW-R: [address], [place] [address], Ph. Attender: Sharon Bautista [facility] Medical 05/06/2020 12:00:00 AM EDT [place] ([facility]) Chayo Dickerson RPA-C: [address], [place] [address], Ph. Attender: CHAYO DICKERSON [facility] Medical 05/03/2020 12:00:00 AM EDT [place] ([facility]) Chayo Dickerson RPA-C: [address], [place] [address], Ph. Attender: CHAYO DICKERSON [facility] Medical 05/03/2020 12:00:00 AM EDT [place] ([facility]) Chayo Dickerson RPA-C: [address], [place] [address], Ph. Attender: CHAYO DICKERSON [facility] Medical 05/03/2020 12:00:00 AM EDT [place] ([facility]) Chayo Dickerson RPA-C: [address], [place] [address], Ph. Attender: CHAYO DICKERSON [facility] Medical 05/03/2020 12:00:00 AM EDT [place] ([facility]) Chayo Dickerson RPA-C: [address], [place] [address], Ph. Attender: CHAYO DICKERSON [facility] Medical 05/03/2020 12:00:00 AM EDT [place] [facility] [facility] Chayo Dickerson RPA-C: [address], [place] [address], Ph. Attender: CHAYO DICKERSON [facility] Medical 05/03/2020 12:00:00 AM EDT [place] ([facility]) Chayo Dickerson RPA-C: [address], [place] [address], Ph. Attender: CHAYO DICKERSON [facility] Medical 05/03/2020 12:00:00 AM EDT [place] ([facility]) Chayo Dickerson RPA-C: [address], [place] [address], Ph. Attender: CHAYO DICKERSON [facility] Medical 05/03/2020 12:00:00 AM EDT [place] ([facility]) Chayo Dickerson RPA-C: [address], [place] [address], Ph. Attender: CHAYO DICKERSON [facility] Medical 05/03/2020 12:00:00 AM EDT [place] ([facility]) Chayo Dickerson RPA-C: [address], [place] [address], Ph. Attender: CHAYO DICKERSON [facility] Medical 05/03/2020 12:00:00 AM EDT [place] ([facility]) Chayo Dickerson RPA-C: [address], [place] [address], Ph. Attender: CHAYO DICKERSON [facility] Medical 05/03/2020 12:00:00 AM EDT [place] ([facility]) Chayo Dickerson RPA-C: [address], [place] [address], Ph. Attender: CHAYO DICKERSON [facility] Medical 05/03/2020 12:00:00 AM EDT [place] ([facility]) Chayo Dickerson RPA-C: [address], [place] [address], Ph. Attender: CHAYO DICKERSON [facility] Medical 05/03/2020 12:00:00 AM EDT [place] ([facility]) Chayo Dickerson RPA-C: [address], [place] [address], Ph. Attender: CHAYO DICKERSON [facility] Medical 05/03/2020 12:00:00 AM EDT [place] ([facility]) Chayo Dickerson RPA-C: [address], [address], [place] [address], Ph. Attender: [facility] 05/03/2020 12:00:00 AM EDT [place] ([facility]) Chayo Dickerson RPA-C: [address], [place] [address], Ph. Attender: CHAYO DICKERSON [facility] Medical 05/03/2020 12:00:00 AM EDT [place] ([facility]) Chayo Dickerson RPA-C: [address], [place] [address], Ph. Attender: CHAYO DICKERSON [facility] Medical 05/03/2020 12:00:00 AM EDT [place] ([facility]) Chayo Dickerson RPA-C: [address], [address], [place] [address], Ph. Attender: CHAYO DICKERSON [facility] Medical 05/03/2020 12:00:00 AM EDT [place] ([facility]) Chayo Dickerson RPA-C: [address], [address], [place] [address], Ph. Attender: CHAYO DICKERSON [facility] Medical 05/03/2020 12:00:00 AM EDT [place] ([facility]) LESLY TalamantesW-R: [address], [place] [address], Ph. Attender: Sharon Bautista [facility] Medical 04/22/2020 12:00:00 AM EDT [place] ([facility]) LESLY TalamantesW-R: [address], [place] [address], Ph. Attender: Sharon Bautista [facility] Medical 04/22/2020 12:00:00 AM EDT [place] ([facility]) SharonLESLY MccartneyW-R: [address], [address], [place] [address], Ph. Attender: Sharon Bautista [facility] Medical 04/22/2020 12:00:00 AM EDT [place] ([facility]) LESLY TalamantesW-R: [address], [address], [place] [address], Ph. Attender: Sharon Bautista [facility] Medical 04/22/2020 12:00:00 AM EDT [place] ([facility]) LESLY TalamantesW-R: [address], [address], [place] [address], Ph. Attender: Sharon Bautista [facility] Medical 04/22/2020 12:00:00 AM EDT [place] ([facility]) LESLY TalamantesW-R: [address], [place] [address], Ph. Attender: Sharon Bautista [facility] Medical 04/22/2020 12:00:00 AM EDT [place] ([facility]) LESLY TalamantesW-R: [address], [address], [place] [address], Ph. Attender: Sharon Bautista [facility] Medical 04/22/2020 12:00:00 AM EDT [place] ([facility]) LESLY TalamantesW-R: [address], [address], [place] [address], Ph. Attender: Sharon Bautista [facility] Medical 04/22/2020 12:00:00 AM EDT [place] ([facility]) LESLY TalamantesW-R: [address], [address], [place] [address], Ph. Attender: Sharon Bautista [facility] Medical 04/22/2020 12:00:00 AM EDT [place] ([facility]) LESLY TalamantesW-R: [address], [place] [address], Ph. Attender: Sharon Ayoubgueromarilyalan [facility] Medical 04/22/2020 12:00:00 AM EDT [place] ([facility]) LESLY TalamantesW-R: [address], [place] [address], Ph. Attender: Sharon Megagueromarilyalan [facility] Medical 04/22/2020 12:00:00 AM EDT [place] ([facility]) LESLY TalamantesW-R: [address], [place] [address], Ph. Attender: Sharonlouisa Westmarilyalan [facility] Medical 04/22/2020 12:00:00 AM EDT [place] ([facility]) LESLY TalamantesW-R: [address], [address], [place] [address], Ph. Attender: Sharon Bautista [facility] Medical 04/22/2020 12:00:00 AM EDT [place] ([facility]) Sharon Low, INSTRUCTIONAL SYSTEMS SPECIALIST-R: [address], [place] [address], Ph. Attender: Sharon Bautista [facility] Medical 04/22/2020 12:00:00 AM EDT [place] ([facility]) Sharon LouiseLESLY saulW-R: [address], [place] [address], Ph. Attender: Sharon Bautista [facility] Medical 04/22/2020 12:00:00 AM EDT [place] ([facility]) SharonLESLY MccartneyW-R: [address], [place] [address], Ph. Attender: Sharon Bautista [facility] Medical 04/22/2020 12:00:00 AM EDT [place] ([facility]) SharonLESLY MccartneyW-R: [address], [place] [address], Ph. Attender: Sharon Bautista [facility] Medical 04/22/2020 12:00:00 AM EDT [place] ([facility]) LESLY TalamantesW-R: [address], [place] [address], Ph. Attender: Sharon Bautista [facility] Medical 04/22/2020 12:00:00 AM EDT [place] ([facility]) LESLY TalamantesW-R: [address], [place] [address], Ph. Attender: Sharon Michele [facility] Medical 04/22/2020 12:00:00 AM EDT [place] ([facility]) Sharon Low, INSTRUCTIONAL SYSTEMS SPECIALIST-R: [address], [place] [address], Ph. Attender: Sharon Bautista [facility] Medical 04/22/2020 12:00:00 AM EDT [place] ([facility]) Chayo Dickerson RPA-C: [address], [place] [address], Ph. Attender: CHAYO DICKERSON [facility] Medical 04/16/2020 12:00:00 AM EST [place] ([facility]) MADDISON AdamsC: [address], [place] [address], Ph. Attender: CHAYO DICKERSON [facility] Medical 04/16/2020 12:00:00 AM EST [place] ([facility]) MADDISON AdamsC: [address], [address], [place] [address], Ph. Attender: CHAYO DICKERSON [facility] Medical 04/16/2020 12:00:00 AM EST [place] ([facility]) MADDISON AdamsC: [address], [address], [place] [address], Ph. Attender: CHAYO DICKERSON [facility] Medical 04/16/2020 12:00:00 AM EST [place] ([facility]) MADDISON AdamsC: [address], [address], [place] [address], Ph. Attender: CHAYO DICKERSON [facility] Medical 04/16/2020 12:00:00 AM EST [place] ([facility]) Chayo Dickerson RPA-C: [address], [address], [place] [address], Ph. Attender: CHAYO DICKERSON [facility] Medical 04/16/2020 12:00:00 AM EST [place] ([facility]) Chayo Dickerson RPA-C: [address], [address], [place] [address], Ph. Attender: CHAYO DICKERSON [facility] Medical 04/16/2020 12:00:00 AM EST [place] ([facility]) MADDISON AdamsC: [address], [address], [place] [address], Ph. Attender: CHAYO DICKERSON [facility] Medical 04/16/2020 12:00:00 AM EST [place] ([facility]) MADDISON AdamsC: [address], [address], [place] [address], Ph. Attender: CHAYO DICKERSON [facility] Medical 04/16/2020 12:00:00 AM EST [place] ([facility]) Chayo Dickerson RPA-C: [address], [address], [place] [address], Ph. Attender: CHAYO DICKERSON [facility] Medical 04/16/2020 12:00:00 AM EST [place] ([facility]) Chayo Dickerson RPA-C: [address], [address], [place] [address], Ph. Attender: CHAYO DICKERSON [facility] Medical 04/16/2020 12:00:00 AM EST [place] ([facility]) Chayo Dickerson RPA-C: [address], [address], [place] [address], Ph. Attender: CHAYO DICKERSON [facility] Medical 04/16/2020 12:00:00 AM EST [place] ([facility]) Chayo Dickerson RPA-C: [address], [address], [place] [address], Ph. Attender: CHAYO DICKERSON [facility] Medical 04/16/2020 12:00:00 AM EST [place] ([facility]) Chayo Dickerson RPA-C: [address], [address], [place] [address], Ph. Attender: CHAYO DICKERSON [facility] Medical 04/16/2020 12:00:00 AM EST [place] ([facility]) Chayo Dickerson RPA-C: [address], [place] [address], Ph. Attender: CHAYO DICKERSON [facility] Medical 04/16/2020 12:00:00 AM EST [place] ([facility]) Chayo Dickerson RPA-C: [address], [address], [place] [address], Ph. Attender: CHAYO DICKERSON [facility] Medical 04/16/2020 12:00:00 AM EST [place] ([facility]) Chayo Dickerson RPA-C: [address], [address], [place] [address], Ph. Attender: CHAYO DICKERSON [facility] Medical 04/16/2020 12:00:00 AM EST [place] ([facility]) Chayo Dickerson RPA-C: [address], [address], [place] [address], Ph. Attender: CHAYO DICKERSON [facility] Medical 04/16/2020 12:00:00 AM EST [place] ([facility]) Chayo Dickerson RPA-C: [address], [place] [address], Ph. Attender: CHAYO DICKERSON [facility] Medical 04/16/2020 12:00:00 AM EST [place] ([facility]) Chayo Dickerson RPA-C: [address], [place] [address], Ph. Attender: CHAYO DICKERSON [facility] Medical 04/16/2020 12:00:00 AM EST [place] ([facility]) Chayo Dickerson RPA-C: [address], [place] [address], Ph. Attender: CHAYO DICKERSON [facility] Medical 04/16/2020 12:00:00 AM EST [place] ([facility]) LESLY TalamantesW-R: [address], [place] [address], Ph. Attender: Sharon Bautista [facility] Medical 04/15/2020 12:00:00 AM EST [place] ([facility]) Sharon Low, INSTRUCTIONAL SYSTEMS SPECIALIST-R: [address], [place] [address], Ph. Attender: Sharon Bautista [facility] Medical 04/15/2020 12:00:00 AM EST [place] ([facility]) SharonLESLY MccartneyW-R: [address], [place] [address], Ph. Attender: Sharon Bautista [facility] Medical 04/15/2020 12:00:00 AM EST [place] ([facility]) LESLY TalamantesW-R: [address], [place] [address], Ph. Attender: Sharon Ayoubgueromariylalan [facility] Medical 04/15/2020 12:00:00 AM EST [place] ([facility]) LESLY TalamantesW-R: [address], [place] [address], Ph. Attender: Sharon Barahonaalan [facility] Medical 04/15/2020 12:00:00 AM EST [place] ([facility]) LESLY TalamantesW-R: [address], [place] [address], Ph. Attender: Sharon Ayoubdiego [facility] Medical 04/15/2020 12:00:00 AM EST [place] ([facility]) LESLY TalamantesW-R: [address], [place] [address], Ph. Attender: Sharon Bautista [facility] Medical 04/15/2020 12:00:00 AM EST [place] ([facility]) LESLY TalamantesW-R: [address], [place] [address], Ph. Attender: Sharon Bautista [facility] Medical 04/15/2020 12:00:00 AM EST [place] ([facility]) Sharon LouiseLESLY saulW-R: [address], [place] [address], Ph. Attender: Sharon Bautista [facility] Medical 04/15/2020 12:00:00 AM EST [place] ([facility]) Sharon LouiseLESLY saulW-R: [address], [place] [address], Ph. Attender: Sharon Ayoubdiego [facility] Medical 04/15/2020 12:00:00 AM EST [place] ([facility]) Sharon LouiseLESLY saulW-R: [address], [place] [address], Ph. Attender: Sharon Ayoubgueromarilyalan [facility] Medical 04/15/2020 12:00:00 AM EST [place] ([facility]) LESLY TalamantesW-R: [address], [place] [address], Ph. Attender: Sharonlouisa Bautista [facility] Medical 04/15/2020 12:00:00 AM EST [place] ([facility]) LESLY TalamantesW-R: [address], [place] [address], Ph. Attender: Sharon Bautista [facility] Medical 04/15/2020 12:00:00 AM EST [place] ([facility]) Sharon LowLESLYW-R: [address], [place] [address], Ph. Attender: Sharon Bautista [facility] Medical 04/15/2020 12:00:00 AM EST [place] ([facility]) Sharon LouiseLESLY saulW-R: [address], [place] [address], Ph. Attender: Sharon Bautista [facility] Medical 04/15/2020 12:00:00 AM EST [place] ([facility]) Sharon LouiseLESLY saulW-R: [address], [place] [address], Ph. Attender: Sharon Jennamarilyalan [facility] Medical 04/15/2020 12:00:00 AM EST [place] ([facility]) Sharon LouiseLESLY saulW-R: [address], [place] [address], Ph. Attender: Sharon Michele [facility] Medical 04/15/2020 12:00:00 AM EST [place] ([facility]) LESLY TalamantesW-R: [address], [place] [address], Ph. Attender: Sharon Michele [facility] Medical 04/15/2020 12:00:00 AM EST [place] ([facility]) SharonLESLY MccartneyW-R: [address], [place] [address], Ph. Attender: Sharon Bautista [facility] Medical 04/15/2020 12:00:00 AM EST [place] ([facility]) Sharon Low, INSTRUCTIONAL SYSTEMS SPECIALIST-R: [address], [place] [address], Ph. Attender: Sharon Ayoubgueromeg [facility] Medical 04/15/2020 12:00:00 AM EST [place] ([facility]) Sharon Low, INSTRUCTIONAL SYSTEMS SPECIALIST-R: [address], [place] [address], Ph. Attender: Sharon Jennameg [facility] Medical 04/15/2020 12:00:00 AM EST [place] ([facility]) Sharon LouiseLESLY saulW-R: [address], [place] [address], Ph. Attender: Sharonlouisa Bautista [facility] Medical 04/15/2020 12:00:00 AM EST [place] ([facility]) Chayo Dickerson RPA-C: [address], [place] [address], Ph. Attender: CHAYO DICKERSON [facility] Medical 04/02/2020 12:00:00 AM EST [place] ([facility]) Chayo Dickerson RPA-C: [address], [place] [address], Ph. Attender: CHAYO DICKERSON [facility] Medical 04/02/2020 12:00:00 AM EST [place] ([facility]) Chayo Dickerson RPA-C: [address], [place] [address], Ph. Attender: CHAYO DICKERSON [facility] Medical 04/02/2020 12:00:00 AM EST [place] ([facility]) Chayo Dickerson RPA-C: [address], [place] [address], Ph. Attender: CHAYO DICKERSON [facility] Medical 04/02/2020 12:00:00 AM EST [place] ([facility]) Chayo Dickerson RPA-C: [address], [place] [address], Ph. Attender: CHAYO DICKERSON [facility] Medical 04/02/2020 12:00:00 AM EST [place] ([facility]) Chayo Dickerson RPA-C: [address], [place] [address], Ph. Attender: CHAYO DICKERSON [facility] Medical 04/02/2020 12:00:00 AM EST [place] ([facility]) Chayo Dickerson RPA-C: [address], [place] [address], Ph. Attender: CHAYO DICKERSON [facility] Medical 04/02/2020 12:00:00 AM EST [place] ([facility]) Chayo Dickerson RPA-C: [address], [place] [address], Ph. Attender: CHAYO DICKERSON [facility] Medical 04/02/2020 12:00:00 AM EST [place] ([facility]) Chayo Dickerson RPA-C: [address], [place] [address], Ph. Attender: CHAYO DICKERSON [facility] Medical 04/02/2020 12:00:00 AM EST [place] ([facility]) Chayo Dickerson RPA-C: [address], [place] [address], Ph. Attender: CHAYO DICKERSON [facility] Medical 04/02/2020 12:00:00 AM EST [place] ([facility]) Chayo Dickerson RPA-C: [address], [place] [address], Ph. Attender: CHAYO DICKERSON [facility] Medical 04/02/2020 12:00:00 AM EST [place] ([facility]) MADDISON AdamsC: [address], [place] [address], Ph. Attender: CHAYO DICKERSON [facility] Medical 04/02/2020 12:00:00 AM EST [place] ([facility]) Chayo Dickerson RPA-C: [address], [place] [address], Ph. Attender: CHAYO DICKERSON [facility] Medical 04/02/2020 12:00:00 AM EST [place] ([facility]) Chayo Dickerson RPA-C: [address], [place] [address], Ph. Attender: CHAYO DICKERSON [facility] Medical 04/02/2020 12:00:00 AM EST [place] ([facility]) Chayo Dickerson RPA-C: [address], [place] [address], Ph. Attender: CHAYO DICKERSON [facility] Medical 04/02/2020 12:00:00 AM EST HILDA ([facility]) MADDISON AdamsC: [address], [address], [place] [address], Ph. Attender: CHAYO DICKERSON [facility] Medical 04/02/2020 12:00:00 AM EST HILDA ([facility]) MADDISON AdamsC: [address], [address], [place] [address], Ph. Attender: CHAYO DICKERSON [facility] Medical 04/02/2020 12:00:00 AM EST HILDA ([facility]) MADDISON AdamsC: [address], [place] [address], Ph. Attender: CHAYO DICKER[facility]N [facility] Medical 04/02/2020 12:00:00 AM EST HILDA ([facility]) MADDISON AdamsC: [address], [place] [address], Ph. Attender: CHAYO DICKERSON [facility] Medical 04/02/2020 12:00:00 AM EST HILDA ([facility]) MADDISON AdamsC: [address], [place] [address], Ph. Attender: CHAYO DICKERSON [facility] Medical 04/02/2020 12:00:00 AM EST HILDA ([facility]) Chayo Dickerson, RPA-C: [address], [place] [address], Ph. Attender: CHAYO DICKERSON [facility] Medical 04/02/2020 12:00:00 AM EST HILDA ([facility]) Chayo Dickerson RPA-C: [address], [place] [address], Ph. Attender: CHAYO DICKERSON [facility] Medical 04/02/2020 12:00:00 AM EST HILDA ([facility]) Chayo Dickerson RPA-C: [address], [place] [address], Ph. Attender: CHAYO DICKERSON [facility] Medical 04/02/2020 12:00:00 AM EST HILDA ([facility]) Merlenemarie Sadler, [facility]: [address], [place] [address], Ph. Attender: Merlenemarie Sadler [facility] Medical 03/05/2020 12:00:00 AM EST HILDA ([facility]) Merlene Sadler [facility]: [address], [place] [address], Ph. Attender: Merlene Sadler [facility] Medical 03/05/2020 12:00:00 AM EST HILDA ([facility]) Merlene Sadler [facility]: [address], [place] [address], Ph. Attender: Merlene Sadler [facility] [facility] Medical 03/05/2020 12:00:00 AM EST HILDA ([facility]) Merlene Sadler [facility]: [address], [place] [address], Ph. Attender: Merlene Sadler [facility] Medical 03/05/2020 12:00:00 AM EST HILDA ([facility]) Merlene Sadler, [employer]: [address], [place] [address], Ph. Attender: Merlene Sadler [facility] Medical 03/05/2020 12:00:00 AM EST HILDA ([facility]) Mrelene Sadler [facility]: [address], [place] [address], Ph. Attender: Merlene Sadler [facility] Medical 03/05/2020 12:00:00 AM EST HILDA ([facility]) Merlene Sadler, [facility]: [address], [place] [address], Ph. Attender: Merlene Sadler [facility] Medical 03/05/2020 12:00:00 AM EST HILDA ([facility]) Merlene Sadler [facility]: [address], [place] [address], Ph. Attender: Merlene Sadler [facility] Medical 03/05/2020 12:00:00 AM EST HILDA ([facility]) Merlene Sadler [facility]: [address], [place] [address], Ph. Attender: Merlene Sadler [facility] Medical 03/05/2020 12:00:00 AM EST HILDA ([facility]) Merlene Sadler, [employer]: [address], [place] [address], Ph. Attender: Merlene Sadler [facility] Medical 03/05/2020 12:00:00 AM EST HILDA ([facility]) Merlene Sadler, [employer]: [address], [place] [address], Ph. Attender: Merlene Sadler [facility] Medical 03/05/2020 12:00:00 AM EST HILDA ([facility]) Merlene Sadler, [facility]: [address], [place] [address], Ph. Attender: Merlene Sadler [facility] Medical 03/05/2020 12:00:00 AM EST HILDA ([facility]) Merlene Sadler, [facility]: [address], [place] [address], Ph. Attender: Merlene Sadler [facility] Medical 03/05/2020 12:00:00 AM EST HILDA ([facility]) Merlene Sadler, [employer]: [address], [place] [address], Ph. Attender: Merlene Sadler [facility] Medical 03/05/2020 12:00:00 AM EST HILDA ([facility]) Merlene Sadler, [facility]: [address], [place] [address], Ph. Attender: Merlene Sadler [facility] Medical 03/05/2020 12:00:00 AM EST HILDA ([facility]) Merlene Sadler, [employer]: [address], [place] [address], Ph. Attender: Merlene Sadler [facility] Medical 03/05/2020 12:00:00 AM EST HILDA ([facility]) Merlene Sadler, [employer]: [address], [place] [address], Ph. Attender: Merlene Sadler [facility] Medical 03/05/2020 12:00:00 AM EST HILDA ([facility]) Merlene Sadler, [employer]: [address], [place] [address], Ph. Attender: Merlene Sadler [facility] Medical 03/05/2020 12:00:00 AM EST HILDA ([facility]) Merlene Sadler, [employer]: [address], [place] [address], Ph. Attender: Merlene Sadler [facility] Medical 03/05/2020 12:00:00 AM EST HILDA ([facility]) Merlene Sadler, [employer]: [address], [place] [address], Ph. Attender: Merlene Sadler [facility] Medical 03/05/2020 12:00:00 AM EST HILDA ([facility]) Merlene Sadler, [employer]: [address], [place] [address], Ph. Attender: Merlene Sadler [facility] Medical 03/05/2020 12:00:00 AM EST HILDA ([facility]) Merlene Sadler, [employer]: [address], [place] [address], Ph. Attender: Merlene Sadler [facility] Medical 03/05/2020 12:00:00 AM EST HILDA ([facility]) Merlene Sadler, [employer]: [address], [place] [address], Ph. Attender: Merlene Sadler [facility] Medical 03/05/2020 12:00:00 AM EST HILDA ([facility]) Merlene Sadler, [employer]: [address], [place] [address], Ph. Attender: Merlene Sadler [facility] Medical 03/05/2020 12:00:00 AM EST HILDA ([facility]) Merlene Sadler [employer]: [address], [place] [address], Ph. Attender: Merlene Sadler [facility] Medical 02/20/2020 12:00:00 AM EST HILDA ([facility]) Merlene Sadler, [employer]: [address], [place] [address], Ph. Attender: Merlene Sadler [facility] Medical 02/20/2020 12:00:00 AM EST HILDA ([facility]) Merlene Sadler [employer]: [address], [place] [address], Ph. Attender: Merlene Sadler [facility] Medical 02/20/2020 12:00:00 AM EST HILDA ([facility]) Merlene Sadler, [employer]: [address], [place] [address], Ph. Attender: Merlene Sadler [facility] Medical 02/20/2020 12:00:00 AM EST HILDA ([facility]) Merlene Sadler, [employer]: [address], [place] [address], Ph. Attender: Merlene Sadler [facility] Medical 02/20/2020 12:00:00 AM EST HILDA ([facility]) Merlene Sadler, [employer]: [address], [place] [address], Ph. Attender: Merlene Sadler [facility] Medical 02/20/2020 12:00:00 AM EST HILDA ([facility]) Merlene Sadler, [employer]: [address], [place] [address], Ph. Attender: Merlene Sadler [facility] Medical 02/20/2020 12:00:00 AM EST HILDA ([facility]) Merlene Sadler, [employer]: [address], [place] [address], Ph. Attender: Merlene Sadler [facility] Medical 02/20/2020 12:00:00 AM EST HILDA ([facility]) Merlene Sadler, [employer]: [address], [place] [address], Ph. Attender: Merlene Sadler [facility] Medical 02/20/2020 12:00:00 AM EST HILDA ([facility]) Merlene aSdler, [employer]: [address], [place] [address], Ph. Attender: Merlene Sadler [facility] Medical 02/20/2020 12:00:00 AM EST HILDA ([facility]) Merlene Sadler, [facility]: [address], [place] [address], Ph. Attender: Merlene Sadler [facility] Medical 02/20/2020 12:00:00 AM EST HILDA ([facility]) Merlene Sadler, [employer]: [address], [place] [address], Ph. Attender: Merlene Sadler [facility] Medical 02/20/2020 12:00:00 AM EST HILDA ([facility]) Merlene Sadler, [facility]: [address], [place] [address], Ph. Attender: Merlene Sadler [facility] [place] [facility] Medical 02/20/2020 12:00:00 AM EST HILDA ([facility]) Merlene Sadler, [facility]: [address], [place] [address], Ph. Attender: Merlene Sadler [facility] Medical 02/20/2020 12:00:00 AM EST HILDA ([facility]) Merlene Sadler, [facility]: [address], [place] [address], Ph. Attender: Merlene Sadler [facility] Medical 02/20/2020 12:00:00 AM EST HILDA ([facility]) Merlene Sadler, [employer]: [address], [place] [address], Ph. Attender: Merlene Sadler [facility] Medical 02/20/2020 12:00:00 AM EST HILDA ([facility]) Merlene Sadler [employer]: [address], [place] [address], Ph. Attender: Merlene Sadler [facility] Medical 02/20/2020 12:00:00 AM EST HILDA ([facility]) Merlene Sadler, [employer]: [address], [place] [address], Ph. Attender: Merlene Sadler [facility] Medical 02/20/2020 12:00:00 AM EST HILDA ([facility]) Merlene Sadler [employer]: [address], [place] [address], Ph. Attender: Merlene Sadler [facility] Medical 02/20/2020 12:00:00 AM EST HILDA ([facility]) Merlene Sadler, [employer]: [address], [place] [address], Ph. Attender: Merlene Sadler [facility] Medical 02/20/2020 12:00:00 AM EST HILDA ([facility]) Merlene Sadler, [employer]: [address], [place] [address], Ph. Attender: Merlene Sadler [facility] Medical 02/20/2020 12:00:00 AM EST HILDA ([facility]) Merlene Sadler, [employer]: [address], [place] [address], Ph. Attender: Merlene Sadler [facility] Medical 02/20/2020 12:00:00 AM EST HILDA ([facility]) Merlene Sadler, [employer]: [address], [place] [address], Ph. Attender: Merlene Sadler [facility] Medical 02/20/2020 12:00:00 AM EST HILDA ([facility]) Merlene Sadler, [employer]: [address], [place] [address], Ph. Attender: Merlene Sadler [facility] Medical 02/20/2020 12:00:00 AM EST HILDA ([facility]) Merlene Sadler, [employer]: [address], [place] [address], Ph. Attender: Merlene Sadler [facility] Medical 02/20/2020 12:00:00 AM EST HILDA ([facility]) Terry Quiroga [facility]: [address], [place] [address], Ph. Attender: TERRY QUIROGA RPA-C [facility] Medical 02/02/2020 12:00:00 AM EST HILDA ([facility]) Merlene Sadler, [employer]: [address], [place] [address], Ph. Attender: Merlene Sadler [facility] Medical 02/02/2020 12:00:00 AM EST HILDA ([facility]) Terry Quiroga [facility]: [address], [place] [address], Ph. Attender: TERRY QUIROGA RPA-C [facility] Medical 02/02/2020 12:00:00 AM EST HILDA ([facility]) Merlene Sadler, [employer]: [address], [place] [address], Ph. Attender: Merlene Sadler [facility] Medical 02/02/2020 12:00:00 AM EST HILDA ([facility]) Terry Quiroga [facility]: [address], [place] [address], Ph. Attender: TERRY QUIROGA RPA-C [facility] Medical 02/02/2020 12:00:00 AM EST HILDA ([facility]) Merlene Sadler, [employer]: [address], [place] [address], Ph. Attender: Merlene Sadler [facility] Medical 02/02/2020 12:00:00 AM EST HILDA ([facility]) Terry Quiroga [facility]: [address], [place] [address], Ph. Attender: TERRY QUIROGA RPA-C [facility] Medical 02/02/2020 12:00:00 AM EST HILDA ([facility]) Merlene Sadler, [employer]: [address], [place] [address], Ph. Attender: Merlene Sadler [facility] Medical 02/02/2020 12:00:00 AM EST HILDA ([facility]) Terry Quiroga [facility]: [address], [address], [place] [address], Ph. Attender: TERRY QUIROGA RPA-C [facility] Medical 02/02/2020 12:00:00 AM EST HILDA ([facility]) Merlene Sadler, [employer]: [address], [place] [address], Ph. Attender: Merlene Sadler [facility] Medical 02/02/2020 12:00:00 AM EST HILDA ([facility]) Terry Quiroga [facility]: [address], [place] [address], Ph. Attender: TERRY QUIROGA RPA-C [facility] Medical 02/02/2020 12:00:00 AM EST HILDA ([facility]) Merlene Sadler, [facility]: [address], [address], [place] [address], Ph. Attender: Merlene Sadler [facility] Medical 02/02/2020 12:00:00 AM EST HILDA ([facility]) Terry Quiroga [facility]: [address], [place] [address], Ph. Attender: TERRY QUIROGA RPA-C [facility] Medical 02/02/2020 12:00:00 AM EST HILDA ([facility]) Merlene Sadler, [facility]: [address], [address], [place] [address], Ph. Attender: Merlene Sadler [facility] Medical 02/02/2020 12:00:00 AM EST HILDA ([facility]) Terry Quiroga [facility]: [address], [place] [address], Ph. Attender: TERRY QUIROGA RPA-C [facility] Medical 02/02/2020 12:00:00 AM EST HILDA ([facility]) Merlene Sadler, [facility]: [address], [place] [address], Ph. Attender: Merlene Sadler [facility] Medical 02/02/2020 12:00:00 AM EST HILDA ([facility]) Terry Quiroga [facility]: [address], [place] [address], Ph. Attender: TERRY QUIROGA RPA-C [facility] Medical 02/02/2020 12:00:00 AM EST HILDA ([facility]) Merlene Sadler, [facility]: [address], [place] [address], Ph. Attender: Merlene Sadler [facility] Medical 02/02/2020 12:00:00 AM EST HILDA ([facility]) Terry Quiroga [facility]: [address], [place] [address], Ph. Attender: TERRY WASHBURNC [facility] Medical 02/02/2020 12:00:00 AM EST HILDA ([facility]) Merlene Sadler, [facility]: [address], [place] [address], Ph. Attender: Merlene Sadler [facility] Medical 02/02/2020 12:00:00 AM EST HILDA ([facility]) Terry Quiroga [facility]: [address], [place] [address], Ph. Attender: TERRY QUIROGA RPA-C [facility] Medical 02/02/2020 12:00:00 AM EST HILDA ([facility]) Merlene Sadler, [employer]: [address], [place] [address], Ph. Attender: Merlene Sadler [facility] Medical 02/02/2020 12:00:00 AM EST HILDA ([facility]) Terry Quiroga [facility]: [address], [place] [address], Ph. Attender: TERRY QUIROGA RPA-C [facility] Medical 02/02/2020 12:00:00 AM EST HILDA ([facility]) Merlene Sadler, [facility]: [address], [address], [place] [address], Ph. Attender: Merlene Sadler [facility] Medical 02/02/2020 12:00:00 AM EST HILDA ([facility]) Terry Quiroga [facility]: [address], [place] [address], Ph. Attender: TERRY QUIROGA RPA-C [facility] Medical 02/02/2020 12:00:00 AM EST HILDA ([facility]) Merlene Sadler, [employer]: [address], [place] [address], Ph. Attender: Merlene Sadler [facility] Medical 02/02/2020 12:00:00 AM EST HILDA ([facility]) Terry Quiroga RPA[facility]C: [address], [place] [address], Ph. Attender: TERRY QUIROGA RPA-C [facility] Medical 02/02/2020 12:00:00 AM EST HILDA ([facility]) Merlene Sadler, [facility]: [address], [place] [address], Ph. Attender: Merlene Sadler [facility] Medical 02/02/2020 12:00:00 AM EST HILDA ([facility]) Terry Quiroga RPA[facility]C: [address], [place] [address], Ph. Attender: TERRY WASH[place] [facility] Medical 02/02/2020 12:00:00 AM EST HILDA ([facility]) Merlene Sadler [facility]: [address], [address], [place] [address], Ph. Attender: Merlene Sadler [facility] Medical 02/02/2020 12:00:00 AM EST HILDA ([facility]) Terry Quiroga RPA[facility]C: [address], [place] [address], Ph. Attender: TERRY WASHBURNC [facility] Medical 02/02/2020 12:00:00 AM EST HILDA ([facility]) Merlene Sadler, [facility]: [address], [place] [address], Ph. Attender: Merlene Sadler [facility] Medical 02/02/2020 12:00:00 AM EST HILDA ([facility]) Terry Quiroga RPA[facility]C: [address], [place] [address], Ph. Attender: TERRY QUIROGA RPA-C [facility] Medical 02/02/2020 12:00:00 AM EST HILDA ([facility]) Merlene Sadler, [employer]: [address], [place] [address], Ph. Attender: Merlene Sadler [facility] Medical 02/02/2020 12:00:00 AM EST HILDA ([facility]) Terry Quiroga R[facility]: [address], [place] [address], Ph. Attender: TERRY QUIROGA RPA-C [facility] Medical 02/02/2020 12:00:00 AM EST HILDA ([facility]) Merlene Sadler, [facility]: [address], [address], [place] [address], Ph. Attender: Merlene Sadler [facility] Medical 02/02/2020 12:00:00 AM EST HILDA ([facility]) Terry Quiroga [facility]: [address], [place] [address], Ph. Attender: TERRY QUIROGA RPA-C [facility] Medical 02/02/2020 12:00:00 AM EST HILDA ([facility]) Merlene Sadler, [employer]: [address], [place] [address], Ph. Attender: Merlene Sadler [facility] Medical 02/02/2020 12:00:00 AM EST HILDA ([facility]) Terry Quiroga [facility]: [address], [place] [address], Ph. Attender: TERRY QUIROGA RPA-C [facility] Medical 02/02/2020 12:00:00 AM EST HILDA ([facility]) Merlene Sadler, [employer]: [address], [place] [address], Ph. Attender: Merlene Sadler [facility] Medical 02/02/2020 12:00:00 AM EST HILDA ([facility]) Terry Quiroga R[facility]: [address], [place] [address], Ph. Attender: TERRY QUIROGA RPA-C [facility] Medical 02/02/2020 12:00:00 AM EST HILDA ([facility]) Merlene Sadler [facility]: [address], [place] [address], Ph. Attender: Merlene Sadler [facility] Medical 02/02/2020 12:00:00 AM EST HILDA ([facility]) Terry Quiroga RPA-C: [address], [place] [address], Ph. Attender: TERRY QUIROGA RPA-C [facility] Medical 02/02/2020 12:00:00 AM EST HILDA ([facility]) Merlene Sadler, [facility]: [address], [place] [address], Ph. Attender: Merlene Sadler [facility] Medical 02/02/2020 12:00:00 AM EST HILDA ([facility]) Terry Quiroga RPA-C: [address], [place] [address], Ph. Attender: TERRY QUIROGA RPA-C [facility] Medical 02/02/2020 12:00:00 AM EST HILDA ([facility]) Merlene Sadler, [employer]: [address], [place] [address], Ph. Attender: Merlene Sadler [facility] Medical 02/02/2020 12:00:00 AM EST HILDA ([facility]) Terry Quiroga RPA-C: [address], [place] [address], Ph. Attender: TERRY QUIROGA RPA-C [facility] Medical 02/02/2020 12:00:00 AM EST HILDA ([facility]) Merlene Sadler, [facility]: [address], [place] [address], Ph. Attender: Merlene Sadler [facility] Medical 02/02/2020 12:00:00 AM EST HILDA ([facility]) Terry Quiroga RPA-C: [address], [place] [address], Ph. Attender: TERRY QUIROGA RPA-C [facility] Medical 02/02/2020 12:00:00 AM EST HILDA ([facility]) Merlene Sadler, [employer]: [address] [address], [place] [address], Ph. Attender: Merlene Sadler [facility] Medical 02/02/2020 12:00:00 AM EST HILDA ([facility]) Terry Quiroga RPA-C: [address], [address], [place] [address], Ph. Attender: TERRY QUIROGA RPA-C [facility] Medical 02/02/2020 12:00:00 AM EST HILDA ([facility]) Merlene Sadler, [employer]: [address], [address], [place] [address], Ph. Attender: Merlene Sadler [facility] Medical 02/02/2020 12:00:00 AM EST HILDA ([facility]) Terry Quiroga, RPA-C: [address], [address], [place] [address], Ph. Attender: TERRY QUIROGA RPA-C [facility] Medical 02/02/2020 12:00:00 AM EST HILDA ([facility]) Merlene Sadler, [facility]: [address], [address], [place] [address], Ph. Attender: Merlene Sadler [facility] Medical 02/02/2020 12:00:00 AM EST HILDA ([facility]) Merlene Sadler, [employer]: [address], [address], [place] [address], Ph. Attender: Merlene Sadler [facility] Medical 01/28/2020 12:00:00 AM EST HILDA ([facility]) Merlene Sadler, [employer]: [address], [address], [place] [address], Ph. Attender: Merlene Sadler [facility] Medical 01/28/2020 12:00:00 AM EST HILDA ([facility]) Merlene Sadler, [employer]: [address], [address], [place] [address], Ph. Attender: Merlene Sadler [facility] Medical 01/28/2020 12:00:00 AM EST HILDA ([facility]) Merlene Sadler, [employer]: [address], [address], [place] [address], Ph. Attender: Merlene Sadler [facility] Medical 01/28/2020 12:00:00 AM EST HILDA ([facility]) Merlene Sadler, [employer]: [address], [address], [place] [address], Ph. Attender: Merlene Sadler [facility] Medical 01/28/2020 12:00:00 AM EST HILDA ([facility]) Merlene Sadler, [employer]: [address], [address], [place] [address], Ph. Attender: Merlene Sadler [facility] Medical 01/28/2020 12:00:00 AM EST HILDA ([facility]) Merlene Sadler, [employer]: [address], [address], [place] [address], Ph. Attender: Merlene Sadler [facility] Medical 01/28/2020 12:00:00 AM EST HILDA ([facility]) Merlene Sadler, [employer]: [address], [address], [place] [address], Ph. Attender: Merlene Sadler [facility] Medical 01/28/2020 12:00:00 AM EST HILDA ([facility]) Merlene Sadler, [employer]: [address], [address], [place] [address], Ph. Attender: Merlene Sadler [facility] Medical 01/28/2020 12:00:00 AM EST HILDA ([facility]) Merlene Sadler [facility]: [address], [address], [place] [address], Ph. Attender: Merlene Sadler [facility] Medical 01/28/2020 12:00:00 AM EST HILDA ([facility]) Merlene Sadler, [facility]: [address], [address], [place] [address], Ph. Attender: Merlene Sadler [facility] Medical 01/28/2020 12:00:00 AM EST HILDA ([facility]) Merlene Sadler, [facility]: [address], [address], [place] [address], Ph. Attender: Merlene Sadler [facility] Medical 01/28/2020 12:00:00 AM EST HILDA ([facility]) Merlene Sadler, [facility]: [address], [address], [place] [address], Ph. Attender: Merlene Sadler [facility] Medical 01/28/2020 12:00:00 AM EST HILDA ([facility]) Merlene Sadler, [facility]: [address], [address], [place] [address], Ph. Attender: Merlene Sadler [facility] Medical 01/28/2020 12:00:00 AM EST HILDA ([facility]) Merlene Sadler, [facility]: [address], [address], [place] [address], Ph. Attender: Merlene Sadler [facility] Medical 01/28/2020 12:00:00 AM EST HILDA ([facility]) Merlene Sadler, [facility]: [address], [address], [place] [address], Ph. Attender: Merlene Sadler [facility] Medical 01/28/2020 12:00:00 AM EST HILDA ([facility]) Merlene Sadler, [employer]: [address], [address], [place] [address], Ph. Attender: Merlene Sadler [facility] Medical 01/28/2020 12:00:00 AM EST HILDA ([facility]) Merlene Sadler, [employer]: [address], [address], [place] [address], Ph. Attender: Merlene Sadler [facility] Medical 01/28/2020 12:00:00 AM EST HILDA ([facility]) Merlene Sadler, [facility]: [address], [address], [place] [address], Ph. Attender: Merlene Sadler [facility] Medical 01/28/2020 12:00:00 AM EST HILDA ([facility]) Merlene Sadler, [facility]: [address], [address], [place] [address], Ph. Attender: Merlene Sadler [facility] Medical 01/28/2020 12:00:00 AM EST HILDA ([facility]) Merlene Sadler, [facility]: [address], [address], [place] [address], Ph. Attender: Merlene Sadler [facility] Medical 01/28/2020 12:00:00 AM EST HILDA ([facility]) Merlene Sadler, [employer]: [address], [address], [place] [address], Ph. Attender: Merlene Sadler [facility] Medical 01/28/2020 12:00:00 AM EST HILDA ([facility]) Merlene Sadler, [employer]: [address], [address], [place] [address], Ph. Attender: Merlene Sadler [facility] Medical 01/28/2020 12:00:00 AM EST HILDA ([facility]) Merlene Sadler [employer]: [address], [address], [place] [address], Ph. Attender: Merlene Sadler [facility] Medical 01/28/2020 12:00:00 AM EST HILDA ([facility]) Merlene Sadler, [employer]: [address], [address], [place] [address], Ph. Attender: Merlene Sadler [facility] Medical 01/28/2020 12:00:00 AM EST HILDA ([facility]) Merlene Sadler [employer]: [address], [address], [place] [address], Ph. Attender: Merlene Sadler [facility] Medical 01/28/2020 12:00:00 AM EST HILDA ([facility]) Merlene Sadler [employer]: [address], [address], [place] [address], Ph. Attender: Merlene Sadler [facility] Medical 01/28/2020 12:00:00 AM EST HILDA ([facility]) Merlene Sadler, [employer]: [address], [address], [place] [address], Ph. Attender: Merlene Sadler [facility] Medical 01/28/2020 12:00:00 AM EST HILDA ([facility]) Merlene Sadler, [employer]: [address], [address], [place] [address], Ph. Attender: Merlene Sadler [facility] Medical 01/20/2020 12:00:00 AM EST HILDA ([facility]) Merlene Sadler, [facility]: [address], [address], [place] [address], Ph. Attender: Merlene Sadler [facility] Medical 01/20/2020 12:00:00 AM EST HILDA ([facility]) Merlene Sadler, [facility]: [address], [address], [place] [address], Ph. Attender: Merlene Sadler [facility] Medical 01/20/2020 12:00:00 AM EST HILDA ([facility]) Merlene Sadler, [facility]: [address], [address], [place] [address], Ph. Attender: Merlene Sadler [facility] Medical 01/20/2020 12:00:00 AM EST HILDA ([facility]) Merlene Sadler, [employer]: [address], [address], [place] [address], Ph. Attender: Merlene Sadler [facility] Medical 01/20/2020 12:00:00 AM EST HILDA ([facility]) Merlene Sadler, [employer]: [address], [address], [place] [address], Ph. Attender: Merlene Sadler [facility] Medical 01/20/2020 12:00:00 AM EST HILDA ([facility]) Merlene Sadler, [employer]: [address], [address], [place] [address], Ph. Attender: Merlene Sadler [facility] Medical 01/20/2020 12:00:00 AM EST HILDA ([facility]) Merlene Sadler, [employer]: [address], [address], [place] [address], Ph. Attender: Merlene Sadler [facility] Medical 01/20/2020 12:00:00 AM EST HILDA ([facility]) Merlene Sadler, [employer]: [address], [address], [place] [address], Ph. Attender: Merlene Sadler [facility] Medical 01/20/2020 12:00:00 AM EST HILDA ([facility]) Merlene Sadler, [employer]: [address], [address], [place] [address], Ph. Attender: Merlene Sadler [facility] Medical 01/20/2020 12:00:00 AM EST HILDA ([facility]) Merlene Sadler, [employer]: [address], [address], [place] [address], Ph. Attender: Merlene Sadler [facility] Medical 01/20/2020 12:00:00 AM EST HILDA ([facility]) Merlene Sadler, [employer]: [address], [address], [place] [address], Ph. Attender: Merlene Sadler [facility] Medical 01/20/2020 12:00:00 AM EST HILDA ([facility]) Merlene Sadler, [facility]: [address], [address], [place] [address], Ph. Attender: Merlene Sadler [facility] Medical 01/20/2020 12:00:00 AM EST HILDA ([facility]) Merlene Sadler, [employer]: [address], [address], [place] [address], Ph. Attender: Merlene Sadler [facility] Medical 01/20/2020 12:00:00 AM EST HILDA ([facility]) Merlene Sadler, [facility]: [address], [address], [place] [address], Ph. Attender: Merlene Sadler [facility] Medical 01/20/2020 12:00:00 AM EST HILDA ([facility]) Merlene Sadler, [facility]: [address], [address], [place] [address], Ph. Attender: Merlene Sadler [facility] Medical 01/20/2020 12:00:00 AM EST HILDA ([facility]) Merlene Sadler, [facility]: [address], [address], [place] [address], Ph. Attender: Merlene Sadler [facility] Medical 01/20/2020 12:00:00 AM EST HILDA ([facility]) Merlene Sadler, [facility]: [address], [address], [place] [address], Ph. Attender: Merlene Sadler [facility] Medical 01/20/2020 12:00:00 AM EST HILDA ([facility]) Merlene Sadler [employer]: [address], [address], [place] [address], Ph. Attender: Merlene Sadler [facility] Medical 01/20/2020 12:00:00 AM EST HILDA ([facility]) Merlene Sadler, [employer]: [address], [address], [place] [address], Ph. Attender: Merlene Sadler [facility] Medical 01/20/2020 12:00:00 AM EST HILDA ([facility]) Merlene Sadler [employer]: [address], [address], [place] [address], Ph. Attender: Merlene Sadler [facility] Medical 01/20/2020 12:00:00 AM EST HILDA ([facility]) Merlene Sadler, [employer]: [address], [address], [place] [address], Ph. Attender: Merlene Sadler [facility] Medical 01/20/2020 12:00:00 AM EST HILDA ([facility]) Merlene Sadler, [employer]: [address], [address], [place] [address], Ph. Attender: Merlene Sadler [facility] Medical 01/20/2020 12:00:00 AM EST HILDA ([facility]) Merlene Sadler, [employer]: [address], [address], [place] [address], Ph. Attender: Merlene Sadler [facility] Medical 01/20/2020 12:00:00 AM EST HILDA ([facility]) Merlene Sadler, [facility]: [address], [address], [place] [address], Ph. Attender: Merlene Sadler [facility] Medical 01/20/2020 12:00:00 AM EST HILDA ([facility]) Merlene Sadler, [employer]: [address], [address], [place] [address], Ph. Attender: Merlene Sadler [facility] Medical 01/20/2020 12:00:00 AM EST HILDA ([facility]) Merlene Sadler, [employer]: [address], [address], [place] [address], Ph. Attender: Merlene Sadler [facility] Medical 01/20/2020 12:00:00 AM EST HILDA ([facility]) Merlene Sadler, [facility]: [address], [address], [place] [address], Ph. Attender: Merlene Sadler [facility] Medical 01/20/2020 12:00:00 AM EST HILDA ([facility]) Merlene Sadler [facility]: [address], [address], [place] [address], Ph. Attender: Merlene Sadler [facility] Medical 01/20/2020 12:00:00 AM EST HILDA ([facility]) Merlene Sadler, [facility]: [address], [address], [place] [address], Ph. Attender: Merlene Sadler [facility] Medical 01/16/2020 12:00:00 AM EST HILDA ([facility]) Merlene Sadler, [facility]: [address], [address], [place] [address], Ph. Attender: Merlene Sadler [facility] Medical 01/16/2020 12:00:00 AM EST HILDA ([facility]) Merlene Sadler, [employer]: [address], [address], [place] [address], Ph. Attender: Merlene Sadler [facility] Medical 01/16/2020 12:00:00 AM EST HILDA ([facility]) Merlene Sadler, [employer]: [address], [address], [place] [address], Ph. Attender: Merlene Sadler [facility] Medical 01/16/2020 12:00:00 AM EST HILDA ([facility]) Merlene Sadler, [employer]: [address], [address], [place] [address], Ph. Attender: Merlene Sadler [facility] Medical 01/16/2020 12:00:00 AM EST HILDA ([facility]) Merlene Sadler, [employer]: [address], [address], [place] [address], Ph. Attender: Merlene Sadler [facility] Medical 01/16/2020 12:00:00 AM EST HILDA ([facility]) Merlene Sadler, [employer]: [address], [address], [place] [address], Ph. Attender: Merlene Sadler [facility] Medical 01/16/2020 12:00:00 AM EST HILDA ([facility]) Merlene Sadler, [employer]: [address], [address], [place] [address], Ph. Attender: Merlene Sadler [facility] Medical 01/16/2020 12:00:00 AM EST HILDA ([facility]) Merlene Sadler, [employer]: [address], [address], [place] [address], Ph. Attender: Merlene Sadler [facility] Medical 01/16/2020 12:00:00 AM EST HILDA ([facility]) Merlene Sadler, [employer]: [address], [address], [place] [address], Ph. Attender: Merlene Sadler [facility] Medical 01/16/2020 12:00:00 AM EST HILDA ([facility]) Merlene Sadler, [employer]: [address], [address], [place] [address], Ph. Attender: Merlene Sadler [facility] Medical 01/16/2020 12:00:00 AM EST HILDA ([facility]) Merlene Sadler, [employer]: [address], [address], [place] [address], Ph. Attender: Merlene Sadler [facility] Medical 01/16/2020 12:00:00 AM EST HILDA ([facility]) Merlene Sadler, [employer]: [address], [address], [place] [address], Ph. Attender: Merlene Sadler [facility] Medical 01/16/2020 12:00:00 AM EST HILDA ([facility]) Merlene Sadler, [employer]: [address], [address], [place] [address], Ph. Attender: Merlene Sadler [facility] Medical 01/16/2020 12:00:00 AM EST HILDA ([facility]) Merlene Sadler, [employer]: [address], [address], [place] [address], Ph. Attender: Merlene Sadler [facility] Medical 01/16/2020 12:00:00 AM EST HILDA ([facility]) Merlene Sadler, [employer]: [address], [place] [address], Ph. Attender: Merlene Sadler [facility] Medical 01/16/2020 12:00:00 AM EST HILDA ([facility]) Merlene Sadler [employer]: [address], [address], [place] [address], Ph. Attender: Merlene Sadler [facility] Medical 01/16/2020 12:00:00 AM EST HILAD ([facility]) Merlene Sadler, [employer]: [address], [address], [place] [address], Ph. Attender: Merlene Sadler [facility] Medical 01/16/2020 12:00:00 AM EST HILDA ([facility]) Merlene Sadler, [employer]: [address], [address], [place] [address], Ph. Attender: Merlene Sadler [facility] Medical 01/16/2020 12:00:00 AM EST HILDA ([facility]) Merlene Sadler, [employer]: [address], [address], [place] [address], Ph. Attender: Merlene Sadler [facility] Medical 01/16/2020 12:00:00 AM EST HILDA ([facility]) Merlene Sadler, [facility]: [address], [address], [place] [address], Ph. Attender: Merlene Sadler [facility] Medical 01/16/2020 12:00:00 AM EST HILDA ([facility]) Merlene Sadler, [employer]: [address], [place] [address], Ph. Attender: Merlene Sadler [facility] Medical 01/16/2020 12:00:00 AM EST HILDA ([facility]) Merlene Sadler, [facility]: [address], [place] [address], Ph. Attender: Merlene Sadler [facility] Medical 01/16/2020 12:00:00 AM EST HILDA ([facility]) Merlene Sadler, [facility]: [address], [place] [address], Ph. Attender: Merlene Sadler [facility] Medical 01/16/2020 12:00:00 AM EST HILDA ([facility]) Merlene Sadler, [facility]: [address], [address], [place] [address], Ph. Attender: Merlene Sadler [facility] Medical 01/16/2020 12:00:00 AM EST HILDA ([facility]) Merlene Sadler, [facility]: [address], [address], [place] [address], Ph. Attender: Merlene Sadler [facility] Medical 01/16/2020 12:00:00 AM EST HILDA ([facility]) Merlene Sadler, [employer]: [address], [place] [address], Ph. Attender: Merlene Sadler [facility] Medical 01/16/2020 12:00:00 AM EST HILDA ([facility]) Merlene Sadler, [employer]: [address], [place] [address], Ph. Attender: Merlene Sadler [facility] Medical 01/16/2020 12:00:00 AM EST HILDA ([facility]) Merlene Sadler, [employer]: [address] [address], [place] [address], Ph. Attender: Merlene Sadler [facility] Medical 01/16/2020 12:00:00 AM EST HILDA ([facility]) Merlene Sadler, [employer]: [address], [place] [address], Ph. Attender: Merlene Sadler [facility] Medical 01/16/2020 12:00:00 AM EST HILDA ([facility]) Merlene Sadler, [employer]: [address], [address], [place] [address], Ph. Attender: Merlene Sadler [facility] Medical 01/08/2020 12:00:00 AM EST HILDA ([facility]) Merlene Sadler, [employer]: [address], [address], [place] [address], Ph. Attender: Merlene Sadler [facility] Medical 01/08/2020 12:00:00 AM EST HILDA ([facility]) Merlene Sadler, [facility]: [address], [address], [place] [address], Ph. Attender: Merlene Sadler [facility] Medical 01/08/2020 12:00:00 AM EST HILDA ([facility]) Merlene Sadler, [employer]: [address], [address], [place] [address], Ph. Attender: Merlene Sadler [facility] Medical 01/08/2020 12:00:00 AM EST HILDA ([facility]) Merlene Sadler, [employer]: [address], [address], [place] [address], Ph. Attender: Merlene Sadler [facility] Medical 01/08/2020 12:00:00 AM EST HILDA ([facility]) Merlene Sadler, [employer]: [address], [address], [place] [address], Ph. Attender: Merlene Sadler [facility] Medical 01/08/2020 12:00:00 AM EST HILDA ([facility]) Merlene Sadler, [facility]: [address], [address], [place] [address], Ph. Attender: Merlene Sadler [facility] Medical 01/08/2020 12:00:00 AM EST HILDA ([facility]) Merlene Sadler, [facility]: [address], [address], [place] [address], Ph. Attender: Merlene Sadler [facility] Medical 01/08/2020 12:00:00 AM EST HILDA ([facility]) Merlene Sadler, [facility]: [address], [address], [place] [address], Ph. Attender: Merlene Sadler [facility] Medical 01/08/2020 12:00:00 AM EST HILDA ([facility]) Merlene Sadler, [employer]: [address], [address], [place] [address], Ph. Attender: Merlene Sadler [facility] Medical 01/08/2020 12:00:00 AM EST HILDA ([facility]) Merlene Sadler, [facility]: [address], [address], [place] [address], Ph. Attender: Merlene Sadler [facility] Medical 01/08/2020 12:00:00 AM EST HILDA ([facility]) Merlnee Sadler, [facility]: [address], [address], [place] [address], Ph. Attender: Merlene Sadler [facility] Medical 01/08/2020 12:00:00 AM EST HILDA ([facility]) Merlene Sadler, [facility]: [address], [address], [place] [address], Ph. Attender: Merlene Sadler [facility] Medical 01/08/2020 12:00:00 AM EST HILDA ([facility]) Merlene Sadler, [facility]: [address], [address], [place] [address], Ph. Attender: Merlene Sadler [facility] Medical 01/08/2020 12:00:00 AM EST HILDA ([facility]) Merlene Sadler, [facility]: [address], [address], [place] [address], Ph. Attender: Merlene Sadler [facility] Medical 01/08/2020 12:00:00 AM EST HILDA ([facility]) Merlene Sadler, [employer]: [address], [address], [place] [address], Ph. Attender: Merlene Sadler [facility] Medical 01/08/2020 12:00:00 AM EST HILDA ([facility]) Merlene Sadler, [employer]: [address], [address], [place] [address], Ph. Attender: Merlene Sadler [facility] Medical 01/08/2020 12:00:00 AM EST HILDA ([facility]) Merlene Sadler, [employer]: [address], [address], [place] [address], Ph. Attender: Merlene Sadler [facility] Medical 01/08/2020 12:00:00 AM EST HILDA ([facility]) Merlene Sadler, [employer]: [address], [address], [place] [address], Ph. Attender: Merlene Sadler [facility] Medical 01/08/2020 12:00:00 AM EST HILDA ([facility]) Merlene Sadler, [employer]: [address], [address], [place] [address], Ph. Attender: Merlene Sadler [facility] Medical 01/08/2020 12:00:00 AM EST HILDA ([facility]) Merlene Sadler, [employer]: [address], [address], [place] [address], Ph. Attender: Merlene Sadler [facility] Medical 01/08/2020 12:00:00 AM EST HILDA ([facility]) Merlene Sadler, [employer]: [address], [address], [place] [address], Ph. Attender: Merlene Sadler [facility] Medical 01/08/2020 12:00:00 AM EST HILDA ([facility]) Merlene Sadler, [employer]: [address], [address], [place] [address], Ph. Attender: Merlene Sadler [facility] Medical 01/08/2020 12:00:00 AM EST HILDA ([facility]) Merlene Sadler [employer]: [address], [address], [place] [address], Ph. Attender: Merlene Sadler [facility] Medical 01/08/2020 12:00:00 AM EST HILDA ([facility]) Merlene Sadler, [employer]: [address], [address], [place] [address], Ph. Attender: Merlene Sadler [facility] Medical 01/08/2020 12:00:00 AM EST HILDA ([facility]) Merlene Sadler, [employer]: [address], [address], [place] [address], Ph. Attender: Merlene Sadler [facility] Medical 01/08/2020 12:00:00 AM EST HILDA ([facility]) Merlene Sadler, [employer]: [address], [address], [place] [address], Ph. Attender: Merlene Sadler [facility] Medical 01/08/2020 12:00:00 AM EST HILDA ([facility]) Merlene Sadler, [facility]: [address], [address], [place] [address], Ph. Attender: Merlene Sadler [facility] Medical 01/08/2020 12:00:00 AM EST HILDA ([facility]) Merlene Sadler, [employer]: [address], [address], [place] [address], Ph. Attender: Merlene Sadler [facility] Medical 01/08/2020 12:00:00 AM EST HILDA ([facility]) Merlene Sadler, [facility]: [address], [address], [place] [address], Ph. Attender: Merlene Sadler [facility] Medical 01/08/2020 12:00:00 AM EST HILDA ([facility]) Merlene Sadler, [facility]: [address], [address], [place] [address], Ph. Attender: Merlene Sadler [facility] Medical 01/08/2020 12:00:00 AM EST HILDA ([facility]) Merlene Sadler, [facility]: [address], [address], [place] [address], Ph. Attender: Merlene Sadler [facility] Medical 01/08/2020 12:00:00 AM EST HILDA ([facility]) Merlene Sadler, [facility]: [address], [address], [place] [address], Ph. Attender: Merlene Sadler [place] - [facility] Medical 01/08/2020 12:00:00 AM EST HILDA ([facility]) Outpatient Attender: PALOMO LOVE MD Main Office 01/07/2020 12:00:00 PM EST MEDJUAN RAMON ([facility]) Terry Quiroga RPA-C: [address], [address], [place] [address], Ph. Attender: TERRY QUIROGA RPA-C [facility] Medical 01/06/2020 12:00:00 AM EST HILDA ([facility]) Terry Quiroga RPA-C: [address], [address], [place] [address], Ph. Attender: TERRY QUIROGA RPA-C [facility] Medical 01/06/2020 12:00:00 AM EST HILDA ([facility]) Terry Quiroga RPA-C: [address], [address], [place] [address], Ph. Attender: TERRY WASHBURNC [facility] Medical 01/06/2020 12:00:00 AM EST HILDA ([facility]) Terry Quiroga RPA-C: [address], [address], [place] [address], Ph. Attender: TERRY QUIROGA RPA-C [facility] Medical 01/06/2020 12:00:00 AM EST HILDA ([facility]) Terry Quiroga RPA-C: [address], [address], [place] [address], Ph. Attender: TERRY QUIROGA RPA-C [facility] Medical 01/06/2020 12:00:00 AM EST HILDA ([facility]) Terry D Quiroga, RPA-C: [address], [address], [place] [address], Ph. Attender: TERRY QUIROGA RPA-C [facility] Medical 01/06/2020 12:00:00 AM EST HILDA ([facility]) Terry Quiroga, RPA-C: [address], [address], [place] [address], Ph. Attender: TERRY QUIROGA RPA-C [facility] Medical 01/06/2020 12:00:00 AM EST HILDA ([facility]) Terry Quiroga, RPA-C: [address], [address], [place] [address], Ph. Attender: TERRY QUIROGA RPA-C [facility] Medical 01/06/2020 12:00:00 AM EST HILDA ([facility]) Terry Quiroga, RPA-C: [address], [address], [place] [address], Ph. Attender: TERRY QUIROGA RPA-C [facility] Medical 01/06/2020 12:00:00 AM EST HILDA ([facility]) Terry Quiroga RPA-C: [address], [address], [place] [address], Ph. Attender: TERRY QUIROGA RPA-C [facility] Medical 01/06/2020 12:00:00 AM EST HILDA ([facility]) Terry Quiroga, RPA-C: [address], [address], [place] [address], Ph. Attender: TERRY QUIROGA RPA-C [facility] Medical 01/06/2020 12:00:00 AM EST HILDA ([facility]) Terry Quiroga, RPA-C: [address], [address], [place] [address], Ph. Attender: TERRY QUIROGA RPA-C [facility] Medical 01/06/2020 12:00:00 AM EST HILDA ([facility]) Terry Quiroga, RPA-C: [address], [address], [place] [address], Ph. Attender: TERRY QUIROGA RPA-C [facility] Medical 01/06/2020 12:00:00 AM EST HILDA ([facility]) Terry Quiroga RPA-C: [address], [address], [place] [address], Ph. Attender: TERRY QUIROGA RPA-C [facility] Medical 01/06/2020 12:00:00 AM EST HILDA ([facility]) Terry Quiroga, RPA-C: [address], [address], [place] [address], Ph. Attender: TERRY QUIROGA RPA-C [facility] Medical 01/06/2020 12:00:00 AM EST HILDA ([facility]) Terry Quiroga, RPA-C: [address], [address], [place] [address], Ph. Attender: TERRY QUIROGA RPA-C [facility] Medical 01/06/2020 12:00:00 AM EST HILDA ([facility]) Terry Quiroga, RPA-C: [address], [address], [place] [address], Ph. Attender: TERRY QUIROGA RPA-C [facility] Medical 01/06/2020 12:00:00 AM EST HILDA ([facility]) Terry Quiroga RPA-C: [address], [address], [place] [address], Ph. Attender: TERRY QUIROGA RPA-C [facility] Medical 01/06/2020 12:00:00 AM EST HILDA ([facility]) Terry Quiroga RPA-C: [address], [address], [place] [address], Ph. Attender: TERRY QUIROGA RPA-C [facility] Medical 01/06/2020 12:00:00 AM EST HILDA ([facility]) Terry Quiroga RPA-C: [address], [address], [place] [address], Ph. Attender: TERRY QUIROGA RPA-C [facility] Medical 01/06/2020 12:00:00 AM EST HILDA ([facility]) Terry Quiroga RPA-C: [address], [address], [place] [address], Ph. Attender: TERRY QUIROGA RPA-C [facility] Medical 01/06/2020 12:00:00 AM EST HILDA ([facility]) Terry Quiroga, RPA-C: [address], [address], [place] [address], Ph. Attender: TERRY QUIROGA RPA-C [facility] Medical 01/06/2020 12:00:00 AM EST HILDA ([facility]) Terry Quiroga RPA-C: [address], [address], [place] [address], Ph. Attender: TERRY QUIROGA RPA-C [facility] Medical 01/06/2020 12:00:00 AM EST HILDA ([facility]) Terry Quiroga RPA-C: [address], [address], [place] [address], Ph. Attender: TERRY QUIROGA RPA-C [facility] Medical 01/06/2020 12:00:00 AM EST HILDA ([facility]) Terry Quiroga RPA-C: [address], [address], [place] [address], Ph. Attender: TERRY QUIROGA RPA-C [facility] Medical 01/06/2020 12:00:00 AM EST HILDA ([facility]) Terry Quiroga RPA-C: [address], [address], [place] [address], Ph. Attender: TERRY QUIROGA RPA-C [facility] Medical 01/06/2020 12:00:00 AM EST HILDA ([facility]) Terry Quiroga RPA-C: [address], [address], [place] [address], Ph. Attender: TERRY QUIROGA RPA-C [facility] Medical 01/06/2020 12:00:00 AM EST HILDA ([facility]) Terry Quiroga RPA-C: [address], [address], [place] [address], Ph. Attender: TERRY QUIROGA RPA-C [facility] Medical 01/06/2020 12:00:00 AM EST HILDA ([facility]) Terry Quiroga RPA-C: [address], [address], [place] [address], Ph. Attender: TERRY QUIROGA RPA-C [facility] Medical 01/06/2020 12:00:00 AM EST HILDA ([facility]) Terry Quiroga, RPA-C: [address], [address], [place] [address], Ph. Attender: TERRY QUIROGA RPA-C [facility] Medical 01/06/2020 12:00:00 AM EST HILDA ([facility]) Terry Quiroga RPA-C: [address], [address], [place] [address], Ph. Attender: TERRY QUIROGA RPA-C [facility] Medical 01/06/2020 12:00:00 AM EST HILDA ([facility]) Terry Quiroga, RPA-C: [address], [address], [place] [address], Ph. Attender: TERRY QUIROGA RPA-C [facility] Medical 01/06/2020 12:00:00 AM EST HILDA ([facility]) Terry Quiroga RPA-C: [address], [address], [place] [address], Ph. Attender: TERRY QUIROGA RPA-C [facility] Medical 01/06/2020 12:00:00 AM EST HILDA ([facility]) Terry Quiroga, RPA-C: [address], [address], [place] [address], Ph. Attender: TERRY QUIROGA RPA-C [facility] Medical 12/31/2019 12:00:00 AM EST HILDA ([facility]) Terry Quiroga, RPA-C: [address], [address], [place] [address], Ph. Attender: TERRY QUIROGA RPA-C [facility] Medical 12/31/2019 12:00:00 AM EST HILDA ([facility]) Terry Quiroga, RPA-C: [address], [address], [place] [address], Ph. Attender: TERRY QUIROGA RPA-C [facility] Medical 12/31/2019 12:00:00 AM EST HILDA ([facility]) Terry Quiroga RPA-C: [address], [place] [address], Ph. Attender: TERRY QUIROGA RPA-C [facility] Medical 12/31/2019 12:00:00 AM EST HILDA ([facility]) Terry Quiroga, RPA-C: [address], [place] [address], Ph. Attender: TERRY QUIROGA RPA-C [facility] Medical 12/31/2019 12:00:00 AM EST HILDA ([facility]) Terry Quiroga, RPA-C: [address], [address], [place] [address], Ph. Attender: TERRY QUIROGA RPA-C [facility] Medical 12/31/2019 12:00:00 AM EST HILDA ([facility]) Terry Quiroga RPA-C: [address], [place] [address], Ph. Attender: TERRY QUIROGA RPA-C [facility] Medical 12/31/2019 12:00:00 AM EST HILDA ([facility]) Terry Quiroga RPA-C: [address], [place] [address], Ph. Attender: TERRY QUIROGA RPA-C [facility] Medical 12/31/2019 12:00:00 AM EST HILDA ([facility]) Terry Quiroga RPA-C: [address], [place] [address], Ph. Attender: TERRY QUIROGA RPA-C [facility] Medical 12/31/2019 12:00:00 AM EST HILDA ([facility]) Terry Quiroga RPA-C: [address], [place] [address], Ph. Attender: TERRY QUIROGA RPA-C [facility] Medical 12/31/2019 12:00:00 AM EST HILDA ([facility]) Terry Quiroga RPA-C: [address], [place] [address], Ph. Attender: TERRY QUIROGA RPA-C [facility] Medical 12/31/2019 12:00:00 AM EST HILDA ([facility]) Terry Quiroga, RPA-C: [address], [place] [address], Ph. Attender: TERRY QUIROGA RPA-C [facility] Medical 12/31/2019 12:00:00 AM EST HILDA ([facility]) Terry Quiroga RPA-C: [address], [place] [address], Ph. Attender: TERRY QUIROGA RPA-C [facility] Medical 12/31/2019 12:00:00 AM EST HILDA ([facility]) Terry Quiroga RPA-C: [address], [place] [address], Ph. Attender: TRERY QUIROGA RPA-C [facility] Medical 12/31/2019 12:00:00 AM EST HILDA ([facility]) Terry Quiroga RPA-C: [address], [place] [address], Ph. Attender: TERRY QUIROGA RPA-C [facility] Medical 12/31/2019 12:00:00 AM EST HILDA ([facility]) Terry Quiroga RPA-C: [address], [place] [address], Ph. Attender: TERRY QUIROGA RPA-C [facility] Medical 12/31/2019 12:00:00 AM EST HILDA ([facility]) Terry Quiroga, RPA-C: [address], [place] [address], Ph. Attender: TERRY QUIROGA RPA-C [facility] Medical 12/31/2019 12:00:00 AM EST HILDA ([facility]) Terry Quiroga RPA-C: [address], [place] [address], Ph. Attender: TERRY QUIROGA RPA-C [facility] Medical 12/31/2019 12:00:00 AM EST HILDA ([facility]) Terry D Quiroga, RPA-C: [address], [place] [address], Ph. Attender: TERRY QUIROGA RPA-C [facility] Medical 12/31/2019 12:00:00 AM EST HILDA ([facility]) Terry Quiroga, RPA-C: [address], [place] [address], Ph. Attender: TERRY QUIROGA RPA-C [facility] Medical 12/31/2019 12:00:00 AM EST HILDA ([facility]) Terry Quiroga RPA-C: [address], [place] [address], Ph. Attender: TERRY QUIROGA RPA-C [facility] Medical 12/31/2019 12:00:00 AM EST HILDA ([facility]) Terry Quiroga, RPA-C: [address], [place] [address], Ph. Attender: TERRY QUIROGA RPA-C [facility] Medical 12/31/2019 12:00:00 AM EST HILDA ([facility]) Terry Quiroga RPA-C: [address], [place] [address], Ph. Attender: TERRY QUIROGA RPA-C [facility] Medical 12/31/2019 12:00:00 AM EST HILDA ([facility]) Terry Quiroga, RPA-C: [address], [place] [address], Ph. Attender: TERRY QUIROGA RPA-C [facility] Medical 12/31/2019 12:00:00 AM EST HILDA ([facility]) Terry Quiroga, RPA-C: [address], [place] [address], Ph. Attender: TERRY QUIROGA RPA-C [facility] Medical 12/31/2019 12:00:00 AM EST HILDA ([facility]) Terry Quiroga, RPA-C: [address], [place] [address], Ph. Attender: TERRY QUIROGA RPA-C [facility] Medical 12/31/2019 12:00:00 AM EST HILDA ([facility]) Terry Quiroga, RPA-C: [address], [place] [address], Ph. Attender: TERRY QUIROGA RPA-C [facility] Medical 12/31/2019 12:00:00 AM EST HILDA ([facility]) Terry Quiroga, RPA-C: [address], [place] [address], Ph. Attender: TERRY QUIROGA RPA-C [facility] Medical 12/31/2019 12:00:00 AM EST HILDA ([facility]) Terry Quiroga, RPA-C: [address], [place] [address], Ph. Attender: TERRY QUIROGA RPA-C [facility] Medical 12/31/2019 12:00:00 AM EST HILDA ([facility]) Terry Quiroga RPA-C: [address], [place] [address], Ph. Attender: TERRY QUIROGA RPA-C [facility] Medical 12/31/2019 12:00:00 AM EST HILDA ([facility]) Terry Quiroga RPA-C: [address], [place] [address], Ph. Attender: TERRY QUIROGA RPA-C [facility] Medical 12/31/2019 12:00:00 AM EST HILDA ([facility]) Terry Quiroga RPA-C: [address], [place] [address], Ph. Attender: TERRY QUIROGA RPA-C [facility] Medical 12/31/2019 12:00:00 AM EST HILDA ([facility]) Terry Quiroga RPA-C: [address], [place] [address], Ph. Attender: TERRY QUIROGA RPA-C [facility] Medical 12/31/2019 12:00:00 AM EST HILDA ([facility]) Merlenemarie Sadler, [employer]: [address], [place] [address], Ph. Attender: Merlene Sadler [facility] Medical 12/26/2019 12:00:00 AM EST HILDA ([facility]) Merlene Sadler, [employer]: [address], [place] [address], Ph. Attender: Merlene Sadler [facility] Medical 12/26/2019 12:00:00 AM EST HILDA ([facility]) Merlene Sadler, [employer]: [address], [place] [address], Ph. Attender: Merlene Sadler [facility] Medical 12/26/2019 12:00:00 AM EST HILDA ([facility]) Merlene Sadler, [facility]: [address], [place] [address], Ph. Attender: Merlene Sadler [facility] Medical 12/26/2019 12:00:00 AM EST HILDA ([facility]) Merlene Sadler, [facility]: [address], [place] [address], Ph. Attender: Merlene Sadler [facility] Medical 12/26/2019 12:00:00 AM EST HILDA ([facility]) Merlene Sadler, [facility]: [address], [place] [address], Ph. Attender: Merlene Sadler [facility] Medical 12/26/2019 12:00:00 AM EST HILDA ([facility]) Merlene Sadler, [facility]: [address], [place] [address], Ph. Attender: Merlene Sadler [facility] Medical 12/26/2019 12:00:00 AM EST HILDA ([facility]) Merlene Sadler, [facility]: [address], [place] [address], Ph. Attender: Merlene Sadler [facility] Medical 12/26/2019 12:00:00 AM EST HILDA ([facility]) Merlene Sadler, [facility]: [address], [place] [address], Ph. Attender: Merlene Sadler [facility] Medical 12/26/2019 12:00:00 AM EST HILDA ([facility]) Merlene Sadler, [employer]: [address], [place] [address], Ph. Attender: Merlene Sadler [facility] Medical 12/26/2019 12:00:00 AM EST HILDA ([facility]) Merlene Sadler, [employer]: [address], [place] [address], Ph. Attender: Merlene Sadler [facility] Medical 12/26/2019 12:00:00 AM EST HILDA ([facility]) Merlene Sadler, [employer]: [address], [place] [address], Ph. Attender: Merlene Sadler [facility] Medical 12/26/2019 12:00:00 AM EST HILDA ([facility]) Merlene Sadler, [employer]: [address], [place] [address], Ph. Attender: Merlene Sadler [facility] Medical 12/26/2019 12:00:00 AM EST HILDA ([facility]) Merlene Sadler, [employer]: [address], [place] [address], Ph. Attender: Merlene Sadler [facility] Medical 12/26/2019 12:00:00 AM EST HILDA ([facility]) Merlene Sadler, [employer]: [address], [place] [address], Ph. Attender: Merlene Sadler [facility] Medical 12/26/2019 12:00:00 AM EST HILDA ([facility]) Merlene Sadler, [facility]: [address], [address], [place] [address], Ph. Attender: Merlene Sadler [facility] Medical 12/26/2019 12:00:00 AM EST HILDA ([facility]) Merlene Sadler, [employer]: [address], [place] [address], Ph. Attender: Merlene Sadler [facility] Medical 12/26/2019 12:00:00 AM EST HILDA ([facility]) Merlene Sadler, [employer]: [address], [place] [address], Ph. Attender: Merlene Sadler [facility] Medical 12/26/2019 12:00:00 AM EST HILDA ([facility]) Merlene Sadler, [employer]: [address], [place] [address], Ph. Attender: Merlene Sadler [facility] Medical 12/26/2019 12:00:00 AM EST HILDA ([facility]) Merlene Sadler, [facility]: [address], [place] [address], Ph. Attender: Merlene Sadler [facility] Medical 12/26/2019 12:00:00 AM EST HILDA ([facility]) Merlene Sadler, [facility]: [address], [address], [place] [address], Ph. Attender: Merlene Sadler [facility] Medical 12/26/2019 12:00:00 AM EST HILDA ([facility]) Merlene Sadler, [facility]: [address], [place] [address], Ph. Attender: Merlene Sadler [facility] Medical 12/26/2019 12:00:00 AM EST HILDA ([facility]) Merlene Sadler, [facility]: [address], [place] [address], Ph. Attender: Merlene Sadler [facility] Medical 12/26/2019 12:00:00 AM EST HILDA ([facility]) Merlene Sadler, [facility]: [address], [address], [place] [address], Ph. Attender: Merlene Sadler [facility] Medical 12/26/2019 12:00:00 AM EST HILDA ([facility]) Merlene Sadler, [facility]: [address], [place] [address], Ph. Attender: Merlene Sadler [facility] Medical 12/26/2019 12:00:00 AM EST HILDA ([facility]) Merlene Sadler, [facility]: [address], [place] [address], Ph. Attender: Merlene Sadler [facility] Medical 12/26/2019 12:00:00 AM EST HILDA ([facility]) Merlene Sadler, [facility]: [address], [place] [address], Ph. Attender: Merlene Sadler [facility] Medical 12/26/2019 12:00:00 AM EST HILDA ([facility]) Merlene Sadler, [facility]: [address], [address], [place] [address], Ph. Attender: Merlene Sadler [facility] Medical 12/26/2019 12:00:00 AM EST HILDA ([facility]) Merlene Sadler, [employer]: [address], [place] [address], Ph. Attender: Merlene Sadler [facility] Medical 12/26/2019 12:00:00 AM EST HILDA ([facility]) Merlene Sadler, [employer]: [address], [place] [address], Ph. Attender: Merlene Sadler [facility] Medical 12/26/2019 12:00:00 AM EST HILDA ([facility]) Merlene Sadler, [employer]: [address], [place] [address], Ph. Attender: Merlene Sadler [facility] Medical 12/26/2019 12:00:00 AM EST HILDA ([facility]) Merlene Sadler, [employer]: [address], [place] [address], Ph. Attender: Merlene Sadler [facility] Medical 12/26/2019 12:00:00 AM EST HILDA ([facility]) Merlene Sadler, [employer]: [address], [place] [address], Ph. Attender: Merlene Sadler [facility] Medical 12/26/2019 12:00:00 AM EST HILDA ([facility]) Merlene Sadler, [employer]: [address], [place] [address], Ph. Attender: Merlene Sadler [facility] Medical 12/26/2019 12:00:00 AM EST HILDA ([facility]) Merlene Sadler, [employer]: [address], [place] [address], Ph. Attender: Merlene Sadler [facility] Medical 12/19/2019 12:00:00 AM EST HILDA ([facility]) Merleen Sadler, [employer]: [address], [address], [place] [address], Ph. Attender: Merlene Sadler [facility] Medical 12/19/2019 12:00:00 AM EST HILDA ([facility]) Merlene Sadler, [employer]: [address], [place] [address], Ph. Attender: Merlene Sadler [facility] Medical 12/19/2019 12:00:00 AM EST HILDA ([facility]) Merlene Sadler, [employer]: [address], [place] [address], Ph. Attender: Merlene Sadler [facility] Medical 12/19/2019 12:00:00 AM EST HILDA ([facility]) Merlene Sadler, [employer]: [address], [place] [address], Ph. Attender: Merlene Sadler [facility] Medical 12/19/2019 12:00:00 AM EST HILDA ([facility]) Merlene Sadler, [employer]: [address], [place] [address], Ph. Attender: Merlene Sadler [facility] Medical 12/19/2019 12:00:00 AM EST HILDA ([facility]) Merlene Sadler, [facility]: [address], [address], [place] [address], Ph. Attender: Merlene Sadler [facility] Medical 12/19/2019 12:00:00 AM EST HILDA ([facility]) Merlene Sadler, [employer]: [address], [place] [address], Ph. Attender: Merlene Sadler [facility] Medical 12/19/2019 12:00:00 AM EST HILDA ([facility]) Merlene Sadler, [facility]: [address], [address], [place] [address], Ph. Attender: Merlene Sadler [facility] Medical 12/19/2019 12:00:00 AM EST HILDA ([facility]) Merlene Sadler, [facility]: [address], [address], [place] [address], Ph. Attender: Merlene Sadler [facility] Medical 12/19/2019 12:00:00 AM EST HILDA ([facility]) Merlene Sadler, [facility]: [address], [address], [place] [address], Ph. Attender: Merlene Sadler [facility] Medical 12/19/2019 12:00:00 AM EST HILDA ([facility]) Merlene Sadler, [employer]: [address], [place] [address], Ph. Attender: Merlene Sadler [facility] Medical 12/19/2019 12:00:00 AM EST HILDA ([facility]) Merlene Sadler, [facility]: [address], [address], [place] [address], Ph. Attender: Merlene Sadler [facility] Medical 12/19/2019 12:00:00 AM EST HILDA ([facility]) Merlene Sadler, [employer]: [address], [place] [address], Ph. Attender: Merlene Sadler [facility] Medical 12/19/2019 12:00:00 AM EST HILDA ([facility]) Merlene Sadler, [employer]: [address], [place] [address], Ph. Attender: Merlene Sadler [facility] Medical 12/19/2019 12:00:00 AM EST HILDA ([facility]) Merlene Sadler, [facility]: [address], [address], [place] [address], Ph. Attender: Merlene Sadler [facility] Medical 12/19/2019 12:00:00 AM EST HILDA ([facility]) Merlene Sadler [facility]: [address], [address], [place] [address], Ph. Attender: Merlene Sadler [facility] Medical 12/19/2019 12:00:00 AM EST HILDA ([facility]) Merlene Sadler, [employer]: [address], [place] [address], Ph. Attender: Merlene Sadler [facility] Medical 12/19/2019 12:00:00 AM EST HILDA ([facility]) Merlene Sadler, [facility]: [address], [address], [place] [address], Ph. Attender: Merlene Sadler [facility] Medical 12/19/2019 12:00:00 AM EST HILDA ([facility]) Merlene Sadler, [employer]: [address], [place] [address], Ph. Attender: Merlene Sadler [facility] Medical 12/19/2019 12:00:00 AM EST IHLDA ([facility]) Merlene Sadler, [employer]: [address], [place] [address], Ph. Attender: Merlene Sadler [facility] Medical 12/19/2019 12:00:00 AM EST HILDA ([facility]) Merlene Sadler, [employer]: [address], [place] [address], Ph. Attender: Merlene Sadler [facility] Medical 12/19/2019 12:00:00 AM EST HILDA ([facility]) Merlene Sadler [employer]: [address], [place] [address], Ph. Attender: Merlene Sadler [facility] Medical 12/19/2019 12:00:00 AM EST HILDA ([facility]) Merlene Sadler, [employer]: [address], [place] [address], Ph. Attender: Merlene Sadler [facility] Medical 12/19/2019 12:00:00 AM EST HILDA ([facility]) Merlene Sadler, [facility]: [address], [address], [place] [address], Ph. Attender: Merlene Sadler [facility] Medical 12/19/2019 12:00:00 AM EST HILDA ([facility]) Merlene Sadler, [employer]: [address], [place] [address], Ph. Attender: Merlene Sadler [facility] Medical 12/19/2019 12:00:00 AM EST HILDA ([facility]) Merlene Sadler, [facility]: [address], [address], [place] [address], Ph. Attender: Merlene Sadler [facility] Medical 12/19/2019 12:00:00 AM EST HILDA ([facility]) Merlene Sadler, [facility]: [address], [address], [place] [address], Ph. Attender: Merlene Sadler [facility] Medical 12/19/2019 12:00:00 AM EST HILDA ([facility]) Merlene Sadler, [facility]: [address], [place] [address], Ph. Attender: Merlene Sadler [facility] Medical 12/19/2019 12:00:00 AM EST HILDA ([facility]) Merlene Sadler, [facility]: [address], [place] [address], Ph. Attender: Merlene Sadler [facility] Medical 12/19/2019 12:00:00 AM EST HILDA ([facility]) Merlene Sadler, [employer]: [address], [place] [address], Ph. Attender: Merlene Sadler [facility] Medical 12/19/2019 12:00:00 AM EST HILDA ([facility]) Merlene Sadler, [employer]: [address], [place] [address], Ph. Attender: Merlene Sadler [facility] Medical 12/19/2019 12:00:00 AM EST HILDA ([facility]) Merlene Sadler, [employer]: [address], [place] [address], Ph. Attender: Merlene Sadler [facility] Medical 12/19/2019 12:00:00 AM EST HILDA ([facility]) Merlene Sadler, [employer]: [address], [place] [address], Ph. Attender: Merlene Sadler [facility] Medical 12/19/2019 12:00:00 AM EST HILDA ([facility]) Merlene Sadler, [employer]: [address], [place] [address], Ph. Attender: Merlene Sadler [facility] Medical 12/19/2019 12:00:00 AM EST HILDA ([facility]) Merlene Sadler, [employer]: [address], [place] [address], Ph. Attender: Merlene Sadler [facility] Medical 12/19/2019 12:00:00 AM EST HILDA ([facility]) Merlene Sadler, [employer]: [address], [place] [address], Ph. Attender: Merlene Sadler [facility] Medical 12/18/2019 12:00:00 AM EST HILDA ([facility]) Merlene Sadler, [employer]: [address], [place] [address], Ph. Attender: Merlene Sadler [facility] Medical 12/18/2019 12:00:00 AM EST HILDA ([facility]) Merlene Sadler, [employer]: [address], [place] [address], Ph. Attender: Merlene Sadler [facility] Medical 12/18/2019 12:00:00 AM EST HILDA ([facility]) Merlene Sadler, [employer]: [address], [place] [address], Ph. Attender: Merlene Sadler [facility] Medical 12/18/2019 12:00:00 AM EST HILDA ([facility]) Merlene Sadler, [employer]: [address], [place] [address], Ph. Attender: Merlene Sadler [facility] Medical 12/18/2019 12:00:00 AM EST HILDA ([facility]) Merlene Sadler, [employer]: [address], [place] [address], Ph. Attender: Merlene Sadler [facility] Medical 12/18/2019 12:00:00 AM EST HILDA ([facility]) Merlene Sadler, [employer]: [address], [place] [address], Ph. Attender: eMrlene Sadler [facility] Medical 12/18/2019 12:00:00 AM EST HILDA ([facility]) Merlene Sadler, [employer]: [address], [place] [address], Ph. Attender: Merlene Sadler [facility] Medical 12/18/2019 12:00:00 AM EST HILDA ([facility]) Merlene Sadler, [employer]: [address], [place] [address], Ph. Attender: Merlene Sadler [facility] Medical 12/18/2019 12:00:00 AM EST HILDA ([facility]) Merlene Sadler, [facility]: [address], [place] [address], Ph. Attender: Merlene Sadler [facility] Medical 12/18/2019 12:00:00 AM EST HILDA ([facility]) Merlene Sadler, [facility]: [address], [place] [address], Ph. Attender: Merlene Sadler [facility] [place] [facility] Medical 12/18/2019 12:00:00 AM EST HILDA ([facility]) Merlene Sadler, [facility]: [address], [address], [place] [address], Ph. Attender: Merlene Sadler [facility] Medical 12/18/2019 12:00:00 AM EST HILDA ([facility]) Merlene Sadler, [employer]: [address], [place] [address], Ph. Attender: Merlene Sadler [facility] Medical 12/18/2019 12:00:00 AM EST HILDA ([facility]) Merlene Sadler, [employer]: [address], [place] [address], Ph. Attender: Merlene Sadler [facility] Medical 12/18/2019 12:00:00 AM EST HILDA ([facility]) Merlene Sadler, [employer]: [address], [place] [address], Ph. Attender: Merlene Sadler [facility] Medical 12/18/2019 12:00:00 AM EST HILDA ([facility]) Merlene Sadler, [employer]: [address], [place], [place] [address], Ph. Attender: Merlene Sadler [facility] Medical 12/18/2019 12:00:00 AM EST HILDA ([facility]) Merlene Sadler, [employer]: [address], [place] [address], Ph. Attender: Merlene Sadler [facility] Medical 12/18/2019 12:00:00 AM EST HILDA ([facility]) Merlene Sadler, [employer]: [address], [place] [address], Ph. Attender: Merlene Sadler [facility] Medical 12/18/2019 12:00:00 AM EST HILDA ([facility]) Merlene Sadler, [employer]: [address], [place] [address], Ph. Attender: Merlene Sadler [facility] Medical 12/18/2019 12:00:00 AM EST HILDA ([facility]) Merlene Sadler [employer]: [address], [place] [address], Ph. Attender: Merlene Sadler [facility] Medical 12/18/2019 12:00:00 AM EST HILDA ([facility]) Merelne Sadler [employer]: [address], [place] [address], Ph. Attender: Merlene Sadler [facility] Medical 12/18/2019 12:00:00 AM EST HILDA ([facility]) Merlene Sadler [employer]: [address], [place] [address], Ph. Attender: Merlene Sadler [facility] Medical 12/18/2019 12:00:00 AM EST HILDA ([facility]) Merlene Sadler, [employer]: [address], [place] [address], Ph. Attender: Merlene Sadler [facility] Medical 12/18/2019 12:00:00 AM EST HILDA ([facility]) Merlene Sadler [employer]: [address], [place] [address], Ph. Attender: Merlene Sadler [facility] Medical 12/18/2019 12:00:00 AM EST HILDA ([facility]) Merlene Sadler [employer]: [address], [place] [address], Ph. Attender: Merlene Sadler [facility] Medical 12/18/2019 12:00:00 AM EST HILDA ([facility]) Merlene Sadler, [employer]: [address], [address], [place] [address], Ph. Attender: Merlene Sadler [facility] Medical 12/18/2019 12:00:00 AM EST HILDA ([facility]) Merlene Sadler, [employer]: [address], [address], [place] [address], Ph. Attender: Merlene Sadler [facility] Medical 12/18/2019 12:00:00 AM EST HILDA ([facility]) Merlene Sadler, [facility]: [address], [address], [place] [address], Ph. Attender: Merlene Sadler [facility] Medical 12/18/2019 12:00:00 AM EST HILDA ([facility]) Merlene Sadler, [facility]: [address], [address], [place] [address], Ph. Attender: Merlene Sadler [facility] Medical 12/18/2019 12:00:00 AM EST HILDA ([facility]) Merlene Sadler, [facility]: [address], [address], [place] [address], Ph. Attender: Merlene Sadler [facility] Medical 12/18/2019 12:00:00 AM EST HILDA ([facility]) Merlene Sadler, [facility]: [address], [address], [place] [address], Ph. Attender: Merlene Sadler [facility] Medical 12/18/2019 12:00:00 AM EST HILDA ([facility]) Merlene Sadler, [employer]: [address], [place] [address], Ph. Attender: Merlene Sadler [facility] Medical 12/18/2019 12:00:00 AM EST HILDA ([facility]) Merlene Sadler, [employer]: [address], [place] [address], Ph. Attender: Merlene Sadler [facility] Medical 12/18/2019 12:00:00 AM EST HILDA ([facility]) Merlene Sadler, [employer]: [address], [place] [address], Ph. Attender: Merlene Sadler [facility] Medical 12/18/2019 12:00:00 AM EST HILDA ([facility]) Merlene Sadler, [employer]: [address], [address], [place] [address], Ph. Attender: Merlene Sadler [facility] Medical 12/18/2019 12:00:00 AM EST HILDA ([facility]) Merlene Sadler, [employer]: [address], [place] [address], Ph. Attender: Merlene Sadler [facility] Medical 12/18/2019 12:00:00 AM EST HILDA ([facility]) Merlene Sadler, [employer]: [address], [address], [place] [address], Ph. Attender: Merlene Sadler [facility] Medical 12/18/2019 12:00:00 AM EST HILDA ([facility]) Merlene Sadler, [employer]: [address], [address], [place] [address], Ph. Attender: Merlene Sadler [facility] Medical 12/12/2019 12:00:00 AM EST HILDA ([facility]) Merlene Sadler, [employer]: [address], [place] [address], Ph. Attender: Merlene Sadler [facility] Medical 12/12/2019 12:00:00 AM EST HILDA ([facility]) Merlene Sadler, [employer]: [address], [place] [address], Ph. Attender: Merlene Sadler [facility] Medical 12/12/2019 12:00:00 AM EST HILDA ([facility]) Merlene Sadler, [facility]: [address], [address], [place] [address], Ph. Attender: Merlene Sadler [facility] Medical 12/12/2019 12:00:00 AM EST HILDA ([facility]) Merlene Sadler, [facility]: [address], [address], [place] [address], Ph. Attender: Merlene Sadler [facility] Medical 12/12/2019 12:00:00 AM EST HLIDA ([facility]) Merlene Sadler, [employer]: [address], [place] [address], Ph. Attender: Merlene Sadler [facility] Medical 12/12/2019 12:00:00 AM EST HILDA ([facility]) Merlene Sadler, [employer]: [address], [place] [address], Ph. Attender: Merlene Sadler [facility] Medical 12/12/2019 12:00:00 AM EST HILDA ([facility]) Merlene Sadler [facility]: [address], [address], [place] [address], Ph. Attender: Merlene Sadler [facility] Medical 12/12/2019 12:00:00 AM EST HILDA ([facility]) Merlene Sadler, [employer]: [address], [place] [address], Ph. Attender: Merlene Sadler [facility] Medical 12/12/2019 12:00:00 AM EST HILDA ([facility]) Merlene Sadler [facility]: [address], [address], [place] [address], Ph. Attender: Merlene Sadler [facility] Medical 12/12/2019 12:00:00 AM EST HILDA ([facility]) Merlene Sadler [facility]: [address], [address], [place] [address], Ph. Attender: Merlene Sadler [facility] Medical 12/12/2019 12:00:00 AM EST HILDA ([facility]) Merlene Sadler [facility]: [address], [place] [address], Ph. Attender: Merlene Sadler [facility] Medical 12/12/2019 12:00:00 AM EST HILDA ([facility]) Merlene Sadler, [employer]: [address], [address], [place] [address], Ph. Attender: Merlene Sadler [facility] Medical 12/12/2019 12:00:00 AM EST HILDA ([facility]) Merlene Sadler, [facility]: [address], [address], [place] [address], Ph. Attender: Merlene Sadler [facility] Medical 12/12/2019 12:00:00 AM EST HILDA ([facility]) Merlene Sadler [employer]: [address], [place] [address], Ph. Attender: Merlene Sadler [facility] Medical 12/12/2019 12:00:00 AM EST HILDA ([facility]) Merlene Sadler, [employer]: [address], [address], [place] [address], Ph. Attender: Merlene Sadler [facility] Medical 12/12/2019 12:00:00 AM EST HILDA ([facility]) Merlene Sadler, [facility]: [address], [address], [place] [address], Ph. Attender: Merlene Sadler [facility] Medical 12/12/2019 12:00:00 AM EST HILDA ([facility]) Merlene Sadler [facility]: [address], [address], [place] [address], Ph. Attender: Merlene Sadler [facility] Medical 12/12/2019 12:00:00 AM EST HILDA ([facility]) Merlene Sadler, [facility]: [address], [address], [place] [address], Ph. Attender: Merlene Sadler [facility] Medical 12/12/2019 12:00:00 AM EST HILDA ([facility]) Merlene Sadler, [facility]: [address], [address], [place] [address], Ph. Attender: Merlene Sadler [facility] Medical 12/12/2019 12:00:00 AM EST HILDA ([facility]) Merlene Sadler, [employer]: [address], [place] [address], Ph. Attender: Merlene Sadler [facility] Medical 12/12/2019 12:00:00 AM EST HILDA ([facility]) Merlene Sadler, [employer]: [address], [place] [address], Ph. Attender: Merlene Sadler [facility] Medical 12/12/2019 12:00:00 AM EST HILDA ([facility]) Merlene Sadler, [employer]: [address], [place] [address], Ph. Attender: Merlene Sadler [facility] Medical 12/12/2019 12:00:00 AM EST HILDA ([facility]) Merlene Sadler, [employer]: [address], [place] [address], Ph. Attender: Merlene Sadler [facility] Medical 12/12/2019 12:00:00 AM EST HILDA ([facility]) Merlene Sadler, [employer]: [address], [address], [place] [address], Ph. Attender: Merlene Sadler [facility] Medical 12/12/2019 12:00:00 AM EST HILDA ([facility]) Merlene Sadler, [employer]: [address], [address], [place] [address], Ph. Attender: Merlene Sadler [facility] Medical 12/12/2019 12:00:00 AM EST HILDA ([facility]) Merlene Sadler, [employer]: [address], [address], [place] [address], Ph. Attender: Merlene Sadler [facility] Medical 12/12/2019 12:00:00 AM EST HILDA ([facility]) Merlene Sadler, [employer]: [address], [address], [place] [address], Ph. Attender: Merlene Sadler [facility] Medical 12/12/2019 12:00:00 AM EST HILDA ([facility]) Merlene Sadler, [employer]: [address], [place] [address], Ph. Attender: Merlene Sadler [facility] Medical 12/12/2019 12:00:00 AM EST HILDA ([facility]) Merlene Sadler, [employer]: [address], [address], [place] [address], Ph. Attender: Mrelene Sadler [facility] Medical 12/12/2019 12:00:00 AM EST HILDA ([facility]) Merlene Sadler, [employer]: [address], [address], [place] [address], Ph. Attender: Merlene Sadler [facility] Medical 12/12/2019 12:00:00 AM EST HILDA ([facility]) Merlene Sadler, [employer]: [address], [address], [place] [address], Ph. Attender: Merlene Sadler [facility] Medical 12/12/2019 12:00:00 AM EST HILDA ([facility]) Merlene Sadler, [employer]: [address], [address], [place] [address], Ph. Attender: Merlene Sadler [facility] Medical 12/12/2019 12:00:00 AM EST HILDA ([facility]) Merlene Sadler, [employer]: [address], [address], [place] [address], Ph. Attender: Merlene Sadler [facility] Medical 12/12/2019 12:00:00 AM EST HILDA ([facility]) Merlene Sadler [employer]: [address], [place] [address], Ph. Attender: Merlene Sadler [facility] Medical 12/12/2019 12:00:00 AM EST HILDA ([facility]) Merlene Sadler, [employer]: [address], [place] [address], Ph. Attender: Merlene Sadler [facility] Medical 12/12/2019 12:00:00 AM EST HILDA ([facility]) Merlene Sadler [employer]: [address], [place] [address], Ph. Attender: Merlene Sadler [facility] Medical 12/12/2019 12:00:00 AM EST HILDA ([facility]) Merlene Sadler, [employer]: [address], [address], [place] [address], Ph. Attender: Merlene Sadler [facility] Medical 12/12/2019 12:00:00 AM EST HILDA ([facility]) Terry Quiroga [facility]: [address], [address], [place] [address], Ph. Attender: TERRY QUIROGA RPA-C [facility] Medical 12/11/2019 12:00:00 AM EST HILDA ([facility]) Terry Quiroga RPA-C: [address], [address], [place] [address], Ph. Attender: TERRY QUIROGA [facility]C [facility] Medical 12/11/2019 12:00:00 AM EST HILDA ([facility]) Terry Quiroga RPA[facility]: [address], [address], [place] [address], Ph. Attender: TERRY QUIROGA [facility]C [facility] Medical 12/11/2019 12:00:00 AM EST HILDA ([facility]) Terry Quiroga RPA[facility]C: [address], [address], [place] [address], Ph. Attender: TERRY QUIROGA RPA[facility]C [facility] Medical 12/11/2019 12:00:00 AM EST HILDA ([facility]) Terry Quiroga, [facility]: [address], [address], [place] [address], Ph. Attender: TERRY QUIROGA R[facility]C [facility] Medical 12/11/2019 12:00:00 AM EST HILDA ([facility]) Terry Quiroga RPA[facility]C: [address], [address], [place] [address], Ph. Attender: TERRY QUIROGA RPA-C [facility] Medical 12/11/2019 12:00:00 AM EST HILDA ([facility]) Terry Quiroga RPA[facility]C: [address], [address], [place] [address], Ph. Attender: TERRY QUIROGA [facility] Medical 12/11/2019 12:00:00 AM EST HILDA ([facility]) Terry Quiroga RPA-C: [address], [address], [place] [address], Ph. Attender: TERRY QUIROGA RPA[facility]C [facility] Medical 12/11/2019 12:00:00 AM EST HILDA ([facility]) Terry Quiroga RPA-C: [address], [address], [place] [address], Ph. Attender: TERRY QUIROGA RPA-C [facility] Medical 12/11/2019 12:00:00 AM EST HILDA ([facility]) Terry Quiroga RPA-C: [address], [place] [address], Ph. Attender: TERRY QUIROGA RPA[facility]C [facility] Medical 12/11/2019 12:00:00 AM EST HILDA ([facility]) Terry Quiroga RPA-C: [address], [address], [place] [address], Ph. Attender: TERRY QUIROGA RPA-C [facility] Medical 12/11/2019 12:00:00 AM EST HILDA ([facility]) Terry Quiroga RPA-C: [address], [address], [place] [address], Ph. Attender: TERRY QUIROGA RPA-C [facility] Medical 12/11/2019 12:00:00 AM EST HILDA ([facility]) Terry Quiroga RPA-C: [address], [address], [place] [address], Ph. Attender: TERRY QUIROGA RPA-C [facility] Medical 12/11/2019 12:00:00 AM EST HILDA ([facility]) Terry Quiroga, [facility]: [address], [address], [place] [address], Ph. Attender: TERRY QUIROGA RPA-C [facility] Medical 12/11/2019 12:00:00 AM EST HILDA ([facility]) Terry Quiroga, [facility]: [address], [address], [place] [address], Ph. Attender: TERRY QUIROGA RPA-C [facility] Medical 12/11/2019 12:00:00 AM EST HILDA ([facility]) Terry Quiroga RPA-C: [address], [address], [place] [address], Ph. Attender: TERRY QUIROGA RPA-C [facility] Medical 12/11/2019 12:00:00 AM EST HILDA ([facility]) Terry Quiroga, [facility]: [address], [address], [place] [address], Ph. Attender: TERRY QUIROGA RPA-C [facility] Medical 12/11/2019 12:00:00 AM EST HILDA ([facility]) Terry Quiroga RPA-C: [address], [place] [address], Ph. Attender: TERRY QUIROGA RPA-C [facility] Medical 12/11/2019 12:00:00 AM EST HILDA ([facility]) Terry Quiroga RPA-C: [address], [place] [address], Ph. Attender: TERRY QUIROGA RPA-C [facility] Medical 12/11/2019 12:00:00 AM EST HILDA ([facility]) Terry Quiroga RPA-C: [address], [address], [place] [address], Ph. Attender: TERRY QUIROGA RPA[facility]C [facility] Medical 12/11/2019 12:00:00 AM EST HILDA ([facility]) Terry Quiroga RPA-C: [address], [place] [address], Ph. Attender: TERRY QUIROGA RPA-C [facility] Medical 12/11/2019 12:00:00 AM EST HILDA ([facility]) Terry Quiroga, [facility]: [address], [address], [place] [address], Ph. Attender: TERRY QUIROGA RPA[facility]C [facility] Medical 12/11/2019 12:00:00 AM EST HILDA ([facility]) Terry Quiroga, [facility]: [address], [place] [address], Ph. Attender: TERRY QUIROGA RPA-C [facility] Medical 12/11/2019 12:00:00 AM EST HILDA ([facility]) Terry Quiroga RPA-C: [address], [place] [address], Ph. Attender: TERRY QUIROGA RPA[facility]C [facility] Medical 12/11/2019 12:00:00 AM EST HILDA ([facility]) Terry Quiroga RPA-C: [address], [place] [address], Ph. Attender: TERRY QUIROGA RPA-C [facility] Medical 12/11/2019 12:00:00 AM EST HILDA ([facility]) Terry Quiroga RPA-C: [address], [place] [address], Ph. Attender: TERRY QUIROGA RPA-C [facility] Medical 12/11/2019 12:00:00 AM EST HILDA ([facility]) Terry Quiroga RPA-C: [address], [place] [address], Ph. Attender: TERRY QUIROGA RPA-C [facility] Medical 12/11/2019 12:00:00 AM EST HILDA ([facility]) Terry Quiroga, [facility]: [address], [place] [address], Ph. Attender: TERRY QUIROGA RPA-C [facility] Medical 12/11/2019 12:00:00 AM EST HILDA ([facility]) Terry Quiroga RPA-C: [address], [place] [address], Ph. Attender: TERRY QUIROGA RPA-C [facility] Medical 12/11/2019 12:00:00 AM EST HILDA ([facility]) Terry Quiroga RPA-C: [address], [place] [address], Ph. Attender: TERRY QUIROGA RPA-C [facility] Medical 12/11/2019 12:00:00 AM EST [facility]ILDA ([facility]) Terry Quiroga RPA-C: [address], [place] [address], Ph. Attender: TERRY QUIROGA RPA-C [facility] Medical 12/11/2019 12:00:00 AM EST HILDA ([facility]) Terry Quiroga RPA-C: [address], [place] [address], Ph. Attender: TERRY QUIROGA RPA-C [facility] Medical 12/11/2019 12:00:00 AM EST HILDA ([facility]) Terry Quiroga RPA-C: [address], [place] [address], Ph. Attender: TERRY QUIROGA RPA-C [facility] Medical 12/11/2019 12:00:00 AM EST HILDA ([facility]) Terry Quiroga RPA-C: [address], [place] [address], Ph. Attender: TERRY QUIROGA RPA-C [facility] Medical 12/11/2019 12:00:00 AM EST HILDA ([facility]) Terry Quiroga RPA-C: [address], [place] [address], Ph. Attender: TERRY QUIROGA RPA-C [facility] Medical 12/11/2019 12:00:00 AM EST HILDA ([facility]) Terry Quiroga RPA-C: [address], [place] [address], Ph. Attender: TERRY QUIROGA RPA-C [facility] Medical 12/11/2019 12:00:00 AM EST [place] ([facility]) Terry Quiroga RPA-C: [address], [place] [address], Ph. Attender: TERRY QUIROGA RPA-C [facility] Medical 12/11/2019 12:00:00 AM EST [facility] ([facility]) Terry Quiroga RPA-C: [address], [place] [address], Ph. Attender: TERRY QUIROGA RPA-C [facility] Medical 12/11/2019 12:00:00 AM EST [facility] ([facility]) Merlene Sadler [facility]: [address], [place] [address], Ph. Attender: Merlene Sadler [facility] Medical 12/03/2019 12:00:00 AM EDT HILDA ([facility]) Merlene Sadler, [facility]: [address], [place] [address], Ph. Attender: Merlene Sadler [facility] Medical 12/03/2019 12:00:00 AM EDT H[facility] ([facility]) Merlene Sadler, [facility]: [address], [place] [address], Ph. Attender: Merlene Sadler [facility] Medical 12/03/2019 12:00:00 AM EDT HILDA ([facility]) Merlene Sadler, [employer]: [address], [place] [address], Ph. Attender: Merlene Sadler [facility] Medical 12/03/2019 12:00:00 AM EDT HILDA ([facility]) Merlene Sadler, [employer]: [address], [place] [address], Ph. Attender: Merlene Sadler [facility] Medical 12/03/2019 12:00:00 AM EDT HILDA ([facility]) Merlene Sadler, [facility]: [address], [place] [address], Ph. Attender: Merlene Sadler [facility] Medical 12/03/2019 12:00:00 AM EDT HILDA ([facility]) Merlene Sadler [facility]: [address], [place] [address], Ph. Attender: Merlene Sadler [facility] Medical 12/03/2019 12:00:00 AM EDT H[facility]DA ([facility]) Merlene Sadler, [facility]: [address], [place] [address], Ph. Attender: Merlene Sadler [facility] Medical 12/03/2019 12:00:00 AM EDT HILDA ([facility]) Merlene Sadler, [facility]: [address], [place] [address], Ph. Attender: Merlene Sadler [facility] Medical 12/03/2019 12:00:00 AM EDT H[facility] ([facility]) Merlene Sadler, [facility]: [address], [place] [address], Ph. Attender: Merlene Sadler [facility] Medical 12/03/2019 12:00:00 AM EDT HILDA ([facility]) Merlene Sadler, [facility]: [address], [place] [address], Ph. Attender: Merlene Sadler [facility] Medical 12/03/2019 12:00:00 AM EDT H[facility]DA ([facility]) Merlene Sadler, [facility]: [address], [place] [address], Ph. Attender: Merlene Sadler [facility] Medical 12/03/2019 12:00:00 AM EDT [place] ([facility]) Merlene Sadler [facility]: [address], [place] [address], Ph. Attender: Merlene Sadler [facility] Medical 12/03/2019 12:00:00 AM EDT HILDA ([facility]) Merlene Sadler, [facility]: [address], [place] [address], Ph. Attender: Merlene Sadler [facility] Medical 12/03/2019 12:00:00 AM EDT [facility] ([facility]) Merlene Sadler, [facility]: [address], [place] [address], Ph. Attender: Merlene Sadler [facility] Medical 12/03/2019 12:00:00 AM EDT H[facility]DA ([facility]) Merlene Sadler, [employer]: [address], [place] [address], Ph. Attender: Merlene Sadler [facility] Medical 12/03/2019 12:00:00 AM EDT H[facility]DA ([facility]) Merlene Sadler, [facility]: [address], [place] [address], Ph. Attender: Merlene Sadler [facility] Medical 12/03/2019 12:00:00 AM EDT [facility] ([facility]) Merlene Sadler, [facility]: [address], [place] [address], Ph. Attender: Merlene Sadler [facility] Medical 12/03/2019 12:00:00 AM EDT HILDA ([facility]) Merlene Sadler [facility]: [address], [place] [address], Ph. Attender: Merlene Sadler [facility] Medical 12/03/2019 12:00:00 AM EDT H[facility]DA ([facility]) Merlene Sadler, [facility]: [address], [place] [address], Ph. Attender: Merlene Sadler [facility] Medical 12/03/2019 12:00:00 AM EDT HILDA ([facility]) Merlene Sadler, [employer]: [address], [place] [address], Ph. Attender: Merlene Sadler [facility] Medical 12/03/2019 12:00:00 AM EDT HILDA ([facility]) Merlene Sadler, [employer]: [address], [place] [address], Ph. Attender: Merlene Sadler [facility] Medical 12/03/2019 12:00:00 AM EDT HILDA ([facility]) Merlene Sadler, [facility]: [address], [address], [place] [address], Ph. Attender: Merlene Sadler [facility] Medical 12/03/2019 12:00:00 AM EDT HILDA ([facility]) Merlene Sadler, [employer]: [address], [place] [address], Ph. Attender: Merlene Sadler [facility] Medical 12/03/2019 12:00:00 AM EDT HILDA ([facility]) Merlene Sadler, [employer]: [address], [place] [address], Ph. Attender: Merlene Sadler [facility] Medical 12/03/2019 12:00:00 AM EDT H[facility]DA ([facility]) Merlene Sadler, [facility]: [address], [place] [address], Ph. Attender: Merlene Sadler [facility] Medical 12/03/2019 12:00:00 AM EDT HILDA ([facility]) Merlene Sadler, [employer]: [address], [place] [address], Ph. Attender: Merlene Sadler [facility] Medical 12/03/2019 12:00:00 AM EDT HILDA ([facility]) Merlene Sadler, [employer]: [address], [place] [address], Ph. Attender: Merlene Sadler [facility] Medical 12/03/2019 12:00:00 AM EDT HILDA ([facility]) Merlene Sadler, [employer]: [address], [place] [address], Ph. Attender: Merlene Sadler [facility] Medical 12/03/2019 12:00:00 AM EDT HILDA ([facility]) Merlene Sadler, [employer]: [address], [place] [address], Ph. Attender: Merlene Sadler [facility] Medical 12/03/2019 12:00:00 AM EDT HILDA ([facility]) Merlene Sadler, [employer]: [address], [place] [address], Ph. Attender: Merlene Sadler [facility] Medical 12/03/2019 12:00:00 AM EDT HILDA ([facility]) Merlene Sadler, [employer]: [address], [place] [address], Ph. Attender: Merlene Sadler [facility] Medical 12/03/2019 12:00:00 AM EDT HILDA ([facility]) Merlene Sadler, [employer]: [address], [place] [address], Ph. Attender: Merlene Sadler [facility] Medical 12/03/2019 12:00:00 AM EDT HILDA ([facility]) Merlene Sadler, [employer]: [address], [place] [address], Ph. Attender: Merlene Sadler [facility] Medical 12/03/2019 12:00:00 AM EDT H[facility]DA ([facility]) Merlene Sadler, [employer]: [address], [place] [address], Ph. Attender: Merlene Sadler [facility] Medical 12/03/2019 12:00:00 AM EDT HILDA ([facility]) Merlene Sadler [employer]: [address], [place] [address], Ph. Attender: Merlene Sadler [facility] Medical 12/03/2019 12:00:00 AM EDT HILDA ([facility]) Merlene Sadler, [employer]: [address], [place] [address], Ph. Attender: Merlene Sadler [facility] Medical 12/03/2019 12:00:00 AM EDT HILDA ([facility]) Merlene Sadler [employer]: [address], [place] [address], Ph. Attender: Merlene Sadler [facility] Medical 12/03/2019 12:00:00 AM EDT HILDA ([facility]) Merlene Sadler, [employer]: [address], [place] [address], Ph. Attender: Merlene Sadler [facility] Medical 12/03/2019 12:00:00 AM EDT HILDA ([facility]) Merlene Sadler, [employer]: [address], [place] [address], Ph. Attender: Merlene Sadler [facility] Medical 11/26/2019 12:00:00 AM EDT HILDA ([facility]) Merlene Sadler, [employer]: [address], [place] [address], Ph. Attender: Merlene Sadler [facility] Medical 11/26/2019 12:00:00 AM EDT [place] ([facility]) Merlene Sadler, [employer]: [address], [place] [address], Ph. Attender: Merlene Sadler [facility] Medical 11/26/2019 12:00:00 AM EDT HILDA ([facility]) Merlene Sadler, [employer]: [address], [place] [address], Ph. Attender: Merlene Sadler [facility] Medical 11/26/2019 12:00:00 AM EDT HILDA ([facility]) Merlene Sadler, [employer]: [address], [place] [address], Ph. Attender: Merlene Sadler [facility] Medical 11/26/2019 12:00:00 AM EDT HILDA ([facility]) Merlene Sadler, [employer]: [address], [place] [address], Ph. Attender: Merlene Sadler [facility] Medical 11/26/2019 12:00:00 AM EDT HILDA ([facility]) Merlene Sadler, [facility]: [address], [address], [place] [address], Ph. Attender: Merlene Sadler [facility] Medical 11/26/2019 12:00:00 AM EDT HILDA ([facility]) Merlene Sadler, [employer]: [address], [place] [address], Ph. Attender: Merlene Sadler [facility] Medical 11/26/2019 12:00:00 AM EDT H[facility]DA ([facility]) Merlene Sadler, [facility]: [address], [place] [address], Ph. Attender: Merlene Sadler [facility] Medical 11/26/2019 12:00:00 AM EDT HILDA ([facility]) Merlene Sadler, [facility]: [address], [place] [address], Ph. Attender: Merlene Sadler [facility] Medical 11/26/2019 12:00:00 AM EDT [place] ([facility]) Merlene Sadler, [facility]: [address], [place] [address], Ph. Attender: Merlene Sadler [facility] Medical 11/26/2019 12:00:00 AM EDT [facility] ([facility]) Merlene Sadler, [facility]: [address], [place] [address], Ph. Attender: Merlene Sadler [facility] Medical 11/26/2019 12:00:00 AM EDT [facility]DA ([facility]) Merlene Sadler [employer]: [address], [place] [address], Ph. Attender: Merlene Sadler [facility] Medical 11/26/2019 12:00:00 AM EDT HILDA ([facility]) Merlene Sadler, [employer]: [address], [place] [address], Ph. Attender: Merlene Sadler [facility] Medical 11/26/2019 12:00:00 AM EDT HILDA ([facility]) Merlene Sadler, [employer]: [address], [place] [address], Ph. Attender: Merlene Sadler [facility] Medical 11/26/2019 12:00:00 AM EDT H[place]DA ([facility]) Merlene Sadler, [employer]: [address], [place] [address], Ph. Attender: Merlene Sadler [facility] Medical 11/26/2019 12:00:00 AM EDT [place] ([facility]) Merlene Sadler, [employer]: [address], [place] [address], Ph. Attender: Merlene Sadler [facility] Medical 11/26/2019 12:00:00 AM EDT HILDA ([facility]) Merlene Sadler, [employer]: [address], [place] [address], Ph. Attender: Merlene Sadler [facility] Medical 11/26/2019 12:00:00 AM EDT [facility]ILDA ([facility]) Merlene Sadler, [employer]: [address], [place] [address], Ph. Attender: Merlene Sadler [facility] Medical 11/26/2019 12:00:00 AM EDT HILDA ([facility]) Merlene Sadler, [employer]: [address], [place] [address], Ph. Attender: Merlene Sadler [facility] Medical 11/26/2019 12:00:00 AM EDT HILDA ([facility]) Merlene Sadler, [employer]: [address], [place] [address], Ph. Attender: Merlene Sadler [facility] Medical 11/26/2019 12:00:00 AM EDT [place] ([facility]) Merlene Sadler, [employer]: [address], [place] [address], Ph. Attender: Merlene Sadler [facility] Medical 11/26/2019 12:00:00 AM EDT HILDA ([facility]) Merlene Sadler, [employer]: [address], [place] [address], Ph. Attender: Merlene Sadler [facility] Medical 11/26/2019 12:00:00 AM EDT HILDA ([facility]) Merlene Sadler, [employer]: [address], [place] [address], Ph. Attender: Merlene Sadler [facility] Medical 11/26/2019 12:00:00 AM EDT HILDA ([facility]) Merlene Sadler, [facility]: [address], [place] [address], Ph. Attender: Merlene Sadler [facility] Medical 11/26/2019 12:00:00 AM EDT [facility] ([facility]) Merlene Sadler [employer]: [address], [place] [address], Ph. Attender: Merlene Sadler [facility] Medical 11/26/2019 12:00:00 AM EDT [place] ([facility]) Merlene Sadler, [facility]: [address], [place] [address], Ph. Attender: Merlene Sadler [facility] Medical 11/26/2019 12:00:00 AM EDT [place] ([facility]) Merlene Sadler, [facility]: [address], [place] [address], Ph. Attender: Merlene Sadler [facility] Medical 11/26/2019 12:00:00 AM EDT [place] ([facility]) Merlene Sadler [facility]: [address], [place] [address], Ph. Attender: Merlene Sadler [facility] Medical 11/26/2019 12:00:00 AM EDT [place] ([facility]) Merlene Sadler, [facility]: [address], [place] [address], Ph. Attender: Merlene Sadler [facility] Medical 11/26/2019 12:00:00 AM EDT [place] ([facility]) Merlene Sadler, [employer]: [address], [place] [address], Ph. Attender: Merlene Sadler [facility] Medical 11/26/2019 12:00:00 AM EDT [place] ([facility]) Merlene Sadler, [employer]: [address], [place] [address], Ph. Attender: Merlene Sadler [facility] Medical 11/26/2019 12:00:00 AM EDT [place] ([facility]) Merlene Sadelr, [employer]: [address], [place] [address], Ph. Attender: Merlene Sadler [facility] Medical 11/26/2019 12:00:00 AM EDT [place] ([facility]) Merlene Sadler, [employer]: [address], [place] [address], Ph. Attender: Merlene Sadler [facility] Medical 11/26/2019 12:00:00 AM EDT [place] ([facility]) Merlene Sadler, [facility]: [address], [place] [address], Ph. Attender: Merlene Sadler [facility] Medical 11/26/2019 12:00:00 AM EDT [place] ([facility]) Merlene Sadler, [employer]: [address], [place] [address], Ph. Attender: Merlene Sadler [facility] Medical 11/26/2019 12:00:00 AM EDT [place] ([facility]) Merlene Sadler [facility]: [address], [place] [address], Ph. Attender: Merlene Sadler [facility] Medical 11/26/2019 12:00:00 AM EDT [place] ([facility]) Merlene Sadler, [facility]: [address], [place] [address], Ph. Attender: Merlene Sadler [facility] Medical 11/26/2019 12:00:00 AM EDT [place] ([facility]) Merlene Sadler, [facility]: [address], [place] [address], Ph. Attender: Merlene Sadler [facility] Medical 11/26/2019 12:00:00 AM EDT [place] ([facility]) Merlene Sadler, [facility]: [address], [place] [address], Ph. Attender: Merlene Sadler [facility] Medical 11/26/2019 12:00:00 AM EDT [place] ([facility]) Outpatient Attender: TERRY QUIROGA RPA-C [facility] 11/13/2019 08:31:03 AM EDT [facility] Outpatient Attender: TERRY QUIROGA RPA-C [facility] 10/28/2019 04:06:01 PM EDT [facility]patient Attender: TERRY QUIROGA RPA-C [facility] 10/28/2019 08:58:02 AM EDT [facility]patient Attender: TERRY QUIROGA RPA-C [facility] 10/28/2019 08:58:02 AM EDT [facility]patient Attender: TERRY QUIROGA RPA-C [facility] 2019 08:16:01 AM EDT [facility] Attender: TERRY QUIROGA RPA-C [facility] 10/14/2019 04:14:00 PM EDT [facility] Attender: TERRY QUIROGA RPA-C [facility] 10/14/2019 09:02:02 AM EDT [facility] Attender: TERRY QUIROGA RPA-C [facility] 10/10/2019 02:32:00 PM EDT [facility] Attender: TERRY QUIROGA RPA-C [facility] 10/10/2019 02:32:00 PM EDT [facility] Attender: TERRY QUIROGA RPA-C [facility] 10/06/2019 03:39:01 PM EDT [facility] Attender: TERRY QUIROGA RPA-C [facility] 10/06/2019 08:14:02 AM EDT [facility] Immunizations Vaccine Date Status Description Data Source(s) COVID-19, mRNA, LNP-S, PF, 30 mcg/0.3 mL dose 08/12/2020 11: 30:57 AM EDT completed .3 mL [facility]) COVID-19, mRNA, LNP-S, PF, 30 mcg/0.3 mL dose 08/12/2020 11: 30:57 AM EDT completed .3 mL [facility]) COVID-19, mRNA, LNP-S, PF, 30 mcg/0.3 mL dose 08/12/2020 11: 30:57 AM EDT completed .3 mL [facility]) COVID-19, mRNA, LNP-S, PF, 30 mcg/0.3 mL dose 08/12/2020 11: 30:57 AM EDT completed .3 mL [facility] ([facility]) COVID-19, mRNA, LNP-S, PF, 30 mcg/0.3 mL dose 08/12/2020 11: 30:57 AM EDT completed .3 mL [place] ([facility]) COVID-19, mRNA, LNP-S, PF, 30 mcg/0.3 mL dose 08/12/2020 11: 30:57 AM EDT completed .3 mL [facility]) COVID-19, mRNA, LNP-S, PF, 30 mcg/0.3 mL dose 08/12/2020 11: 30:57 AM EDT completed .[facility] mL [facility] [facility]) COVID-19, mRNA, LNP-S, PF, 30 mcg/0.3 mL dose 08/12/2020 11: 30:57 AM EDT completed .3 mL [place] ([facility]) COVID-19, mRNA, LNP-S, PF, 30 mcg/0.3 mL dose 08/12/2020 11: 30:57 AM EDT completed .3 mL [place] ([facility]) COVID-19, mRNA, LNP-S, PF, 30 mcg/0.3 mL dose 08/12/2020 11: 30:57 AM EDT completed .3 mL [place] ([facility]) COVID-19, mRNA, LNP-S, PF, 30 mcg/0.3 mL dose 08/12/2020 11: 30:57 AM EDT completed .3 mL [place] ([facility]) COVID-19 VACCINE Pfizer 08/12/2020 12:00:00 AM EDT completed [facility] Vaccine Series Complete: YESThis Data wa s Submitted to [facility] Via [employer]. COVID-19, mRNA, LNP-S, PF, 30 mcg/0.3 mL dose 07/22/2020 06: 41:28 PM EDT completed .3 mL HILDA ([facility]) COVID-19, mRNA, LNP-S, PF, 30 mcg/0.3 mL dose 07/22/2020 06: 41:28 PM EDT completed .3 mL [place] ([facility]) COVID-19, mRNA, LNP-S, PF, 30 mcg/0.3 mL dose 07/22/2020 06: 41:28 PM EDT completed .3 mL [place] ([facility]) COVID-19, mRNA, LNP-S, PF, 30 mcg/0.3 mL dose 07/22/2020 06: 41:28 PM EDT completed .3 mL HILDA ([facility]) COVID-19, mRNA, LNP-S, PF, 30 mcg/0.3 mL dose 07/22/2020 06: 41:28 PM EDT completed .3 mL HILDA ([facility]) COVID-19, mRNA, LNP-S, PF, 30 mcg/0.3 mL dose 07/22/2020 06: 41:28 PM EDT completed .3 mL [place]ILDA ([facility]) COVID-19, mRNA, LNP-S, PF, 30 mcg/0.3 mL dose 07/22/2020 06: 41:28 PM EDT completed .3 mL [place] ([facility]) COVID-19, mRNA, LNP-S, PF, 30 mcg/0.3 mL dose 07/22/2020 06: 41:28 PM EDT completed .3 mL [place]ILDA ([facility]) COVID-19, mRNA, LNP-S, PF, 30 mcg/0.3 mL dose 07/22/2020 06: 41:28 PM EDT completed .3 mL [place] ([facility]) COVID-19, mRNA, LNP-S, PF, 30 mcg/0.3 mL dose 07/22/2020 06: 41:28 PM EDT completed .3 mL [place]ILDA ([facility]) COVID-19, mRNA, LNP-S, PF, 30 mcg/0.3 mL dose 07/22/2020 06: 41:28 PM EDT completed .3 mL [place]ILDA ([facility]) COVID-19, mRNA, LNP-S, PF, 30 mcg/0.3 mL dose 07/22/2020 06: 41:28 PM EDT completed .3 mL [place]ILDA ([facility]) COVID-19, mRNA, LNP-S, PF, 30 mcg/0.3 mL dose 07/22/2020 06: 41:28 PM EDT completed .3 mL [place]DA ([facility]) COVID-19, mRNA, LNP-S, PF, 30 mcg/0.3 mL dose 07/22/2020 06: 41:28 PM EDT completed .3 mL [place] ([facility]) COVID-19 VACCINE Pfizer 07/22/2020 12:00:00 AM EDT completed [facility] Vaccine Series Complete: NOThis Data was Submitted to [facility] Via [employer]. Medications Medication Brand Name Start Date Product Form Dose Route Admi nistrative Instructions Pharmacy Instructions Status Indications Reaction Description Data Source(s) Naproxen 250 MG Oral Tablet Naproxen 05/20/2020 12:00:00 AM EDT ORAL active MEDENT ([facility]) Amoxicillin 875 MG / Clavulanate 125 MG [...] / clavulanate 125 MG Oral Tablet HILDA ([facility]) Amoxicillin 875 MG / Clavulanate 125 MG Oral Tablet amoxicillin 875 mg-potassium clavulanate 125 mg tablet TAKE 1 TABLET BY MOUTH TWICE DAILY amoxicillin 875 mg- potassium clavulanate 125 mg tablet TAKE 1 TABLET BY MOUTH TWICE DAILY 04/02/2020 12:00:00 AM EST completed amoxicillin 875 MG / clavulanate 125 MG Oral Tablet [facility]ILDA ([facility]) Amoxicillin 875 MG / Clavulanate 125 MG Oral Tablet amoxicillin 875 mg-potassium clavulanate 125 mg tablet TAKE 1 TABLET BY MOUTH TWICE DAILY amoxicillin 875 mg- potassium clavulanate 125 mg tablet TAKE 1 TABLET BY MOUTH TWICE DAILY 04/02/2020 12:00:00 AM EST completed amoxicillin 875 MG / clavulanate 125 MG Oral Tablet [facility]ILDA ([facility]) Amoxicillin 875 MG / Clavulanate 125 MG Oral Tablet amoxicillin 875 mg-potassium clavulanate 125 mg tablet TAKE 1 TABLET BY MOUTH TWICE DAILY amoxicillin 875 mg- potassium clavulanate 125 mg tablet TAKE 1 TABLET BY MOUTH TWICE DAILY 04/02/2020 12:00:00 AM EST completed amoxicillin 875 MG / clavulanate 125 MG Oral Tablet [facility]ILDA ([facility]) Amoxicillin 875 MG / Clavulanate 125 MG Oral Tablet amoxicillin 875 mg-potassium clavulanate 125 mg tablet TAKE 1 TABLET BY MOUTH TWICE DAILY amoxicillin 875 mg- potassium clavulanate 125 mg tablet TAKE 1 TABLET BY MOUTH TWICE DAILY 04/02/2020 12:00:00 AM EST completed amoxicillin 875 MG / clavulanate 125 MG Oral Tablet HILDA ([facility]) Amoxicillin 875 MG / Clavulanate 125 MG Oral Tablet amoxicillin 875 mg-potassium clavulanate 125 mg tablet TAKE 1 TABLET BY MOUTH TWICE DAILY amoxicillin 875 mg- potassium clavulanate 125 mg tablet TAKE 1 TABLET BY MOUTH TWICE DAILY 04/02/2020 12:00:00 AM EST completed amoxicillin 875 MG / clavulanate 125 MG Oral Tablet [facility]ILDA ([facility]) Amoxicillin 875 MG / Clavulanate 125 MG Oral Tablet amoxicillin 875 mg-potassium clavulanate 125 mg tablet TAKE 1 TABLET BY MOUTH TWICE DAILY amoxicillin 875 mg- potassium clavulanate 125 mg tablet TAKE 1 TABLET BY MOUTH TWICE DAILY 04/02/2020 12:00:00 AM EST completed amoxicillin 875 MG / clavulanate 125 MG Oral Tablet [facility]ILDA ([facility]) Amoxicillin 875 MG / Clavulanate 125 MG Oral Tablet amoxicillin 875 mg-potassium clavulanate 125 mg tablet TAKE 1 TABLET BY MOUTH TWICE DAILY amoxicillin 875 mg- potassium clavulanate 125 mg tablet TAKE 1 TABLET BY MOUTH TWICE DAILY 04/02/2020 12:00:00 AM EST completed amoxicillin 875 MG / clavulanate 125 MG Oral Tablet [facility]ILDA ([facility]) Amoxicillin 875 MG / Clavulanate 125 MG Oral Tablet amoxicillin 875 mg-potassium clavulanate 125 mg tablet TAKE 1 TABLET BY MOUTH TWICE DAILY amoxicillin 875 mg- potassium clavulanate 125 mg tablet TAKE 1 TABLET BY MOUTH TWICE DAILY 04/02/2020 12:00:00 AM EST completed amoxicillin 875 MG / clavulanate 125 MG Oral Tablet HILDA ([facility]) Amoxicillin 875 MG / Clavulanate 125 MG Oral Tablet amoxicillin 875 mg-potassium clavulanate 125 mg tablet TAKE 1 TABLET BY MOUTH TWICE DAILY amoxicillin 875 mg- potassium clavulanate 125 mg tablet TAKE 1 TABLET BY MOUTH TWICE DAILY 04/02/2020 12:00:00 AM EST completed amoxicillin 875 MG / clavulanate 125 MG Oral Tablet [facility]ILDA ([facility]) Amoxicillin 875 MG / Clavulanate 125 MG Oral Tablet amoxicillin 875 mg-potassium clavulanate 125 mg tablet TAKE 1 TABLET BY MOUTH TWICE DAILY amoxicillin 875 mg- potassium clavulanate 125 mg tablet TAKE 1 TABLET BY MOUTH TWICE DAILY 04/02/2020 12:00:00 AM EST completed amoxicillin 875 MG / clavulanate 125 MG Oral Tablet HILDA ([facility]) Amoxicillin 875 MG / Clavulanate 125 MG Oral Tablet amoxicillin 875 mg-potassium clavulanate 125 mg tablet TAKE 1 TABLET BY MOUTH TWICE DAILY amoxicillin 875 mg- potassium clavulanate 125 mg tablet TAKE 1 TABLET BY MOUTH TWICE DAILY 04/02/2020 12:00:00 AM EST completed amoxicillin 875 MG / clavulanate 125 MG Oral Tablet HILDA ([facility]) Amoxicillin 875 MG / Clavulanate 125 MG Oral Tablet amoxicillin 875 mg-potassium clavulanate 125 mg tablet TAKE 1 TABLET BY MOUTH TWICE DAILY amoxicillin 875 mg- potassium clavulanate 125 mg tablet TAKE 1 TABLET BY MOUTH TWICE DAILY 04/02/2020 12:00:00 AM EST completed amoxicillin 875 MG / clavulanate 125 MG Oral Tablet HILDA ([facility]) Amoxicillin 875 MG / Clavulanate 125 MG Oral Tablet amoxicillin 875 mg-potassium clavulanate 125 mg tablet TAKE 1 TABLET BY MOUTH TWICE DAILY amoxicillin 875 mg- potassium clavulanate 125 mg tablet TAKE 1 TABLET BY MOUTH TWICE DAILY 04/02/2020 12:00:00 AM EST completed amoxicillin 875 MG / clavulanate 125 MG Oral Tablet HILDA ([facility]) Amoxicillin 875 MG / Clavulanate 125 MG Oral Tablet amoxicillin 875 mg-potassium clavulanate 125 mg tablet TAKE 1 TABLET BY MOUTH TWICE DAILY amoxicillin 875 mg- potassium clavulanate 125 mg tablet TAKE 1 TABLET BY MOUTH TWICE DAILY 04/02/2020 12:00:00 AM EST completed amoxicillin 875 MG / clavulanate 125 MG Oral Tablet HILDA ([facility]) Amoxicillin 875 MG / Clavulanate 125 MG Oral Tablet amoxicillin 875 mg-potassium clavulanate 125 mg tablet TAKE 1 TABLET BY MOUTH TWICE DAILY amoxicillin 875 mg- potassium clavulanate 125 mg tablet TAKE 1 TABLET BY MOUTH TWICE DAILY 04/02/2020 12:00:00 AM EST completed amoxicillin 875 MG / clavulanate 125 MG Oral Tablet HILDA ([facility]) Amoxicillin 875 MG / Clavulanate 125 MG Oral Tablet amoxicillin 875 mg-potassium clavulanate 125 mg tablet TAKE 1 TABLET BY MOUTH TWICE DAILY amoxicillin 875 mg- potassium clavulanate 125 mg tablet TAKE 1 TABLET BY MOUTH TWICE DAILY 04/02/2020 12:00:00 AM EST completed amoxicillin 875 MG / clavulanate 125 MG Oral Tablet HILDA ([facility]) Amoxicillin 875 MG / Clavulanate 125 MG Oral Tablet amoxicillin 875 mg-potassium clavulanate 125 mg tablet TAKE 1 TABLET BY MOUTH TWICE DAILY amoxicillin 875 mg- potassium clavulanate 125 mg tablet TAKE 1 TABLET BY MOUTH TWICE DAILY 04/02/2020 12:00:00 AM EST completed amoxicillin 875 MG / clavulanate 125 MG Oral Tablet HILDA ([facility]) Amoxicillin 875 MG / Clavulanate 125 MG Oral Tablet amoxicillin 875 mg-potassium clavulanate 125 mg tablet TAKE 1 TABLET BY MOUTH TWICE DAILY amoxicillin 875 mg- potassium clavulanate 125 mg tablet TAKE 1 TABLET BY MOUTH TWICE DAILY 04/02/2020 12:00:00 AM EST completed amoxicillin 875 MG / clavulanate 125 MG Oral Tablet HILDA ([facility]) Amoxicillin 875 MG / Clavulanate 125 MG Oral Tablet amoxicillin 875 mg-potassium clavulanate 125 mg tablet TAKE 1 TABLET BY MOUTH TWICE DAILY amoxicillin 875 mg- potassium clavulanate 125 mg tablet TAKE 1 TABLET BY MOUTH TWICE DAILY 04/02/2020 12:00:00 AM EST completed amoxicillin 875 MG / clavulanate 125 MG Oral Tablet HILDA ([facility]) atorvastatin 20 MG Oral Tablet Atorvastatin Calcium 01/10/2020 1 2:00:00 AM EST ORAL active MEDENT ( [facility]) cetirizine hydrochloride 10 MG Oral Tablet Cetirizine HCL 01/06/2020 12:00:00 AM EST ORAL active [facility] ([facility]) Lorazepam 1 MG Oral Tablet Lorazepam 01/06/2020 12:00:00 AM EST ORAL active [facility] ([facility]) Escitalopram 20 MG Oral Tablet Escitalopram Oxalate 01/06/2020 1 2:00:00 AM EST ORAL active MEDENT ( [facility]) Trazodone Hydrochloride 50 MG Oral Tablet Trazodone HCL 01/06/2020 12:00:00 AM EST ORAL active [facility] ([facility]) Hydroxyzine Hydrochloride 25 MG Oral Tablet Hydroxyzine HCL 01/06/2020 12:00:00 AM EST ORAL active [facility] ([facility]) Omeprazole 20 MG Delayed Release Oral Capsule Omeprazole 01/06/2020 12:00:00 AM EST [facility]AL [facility] Escitalopram 10 MG Oral Tablet [Lexapro] Lexapro 10 mg tablet take one tablet po daily Lexapro 10 mg tablet take one tablet po daily 10/28/2019 12: 00:00 AM EDT completed escitalopram 1 0 MG Oral Tablet [Lexapro] HILDA ([facility]) Escitalopram 10 MG Oral Tablet [Lexapro] Lexapro 10 mg tablet take one tablet po daily Lexapro 10 mg tablet take one tablet po daily 10/28/2019 12: 00:00 AM EDT completed escitalopram 1 0 MG Oral Tablet [Lexapro] HILDA ([facility]) Escitalopram 10 MG Oral Tablet [Lexapro] Lexapro 10 mg tablet take one tablet po daily Lexapro 10 mg tablet take one tablet po daily 10/28/2019 12: 00:00 AM EDT completed escitalopram 1 0 MG Oral Tablet [Lexapro] HILDA ([facility]) Escitalopram 10 MG Oral Tablet [Lexapro] Lexapro 10 mg tablet take one tablet po daily Lexapro 10 mg tablet take one tablet po daily 10/28/2019 12: 00:00 AM EDT completed escitalopram 1 0 MG Oral Tablet [Lexapro] HILDA ([facility]) Escitalopram 10 MG Oral Tablet [Lexapro] Lexapro 10 mg tablet take one tablet po daily Lexapro 10 mg tablet take one tablet po daily 10/28/2019 12: 00:00 AM EDT completed escitalopram 1 0 MG Oral Tablet [Lexapro] [facility]ILDA ([facility]) Escitalopram 10 MG Oral Tablet [Lexapro] Lexapro 10 mg tablet take one tablet po daily Lexapro 10 mg tablet take one tablet po daily 10/28/2019 12: 00:00 AM EDT completed escitalopram 1 0 MG Oral Tablet [Lexapro] [facility]ILDA ([facility]) Escitalopram 10 MG Oral Tablet [Lexapro] Lexapro 10 mg tablet take one tablet po daily Lexapro 10 mg tablet take one tablet po daily 10/28/2019 12: 00:00 AM EDT completed escitalopram 1 0 MG Oral Tablet [Lexapro] [facility]ILDA ([facility]) Escitalopram 10 MG Oral Tablet [Lexapro] Lexapro 10 mg tablet take one tablet po daily Lexapro 10 mg tablet take one tablet po daily 10/28/2019 12: 00:00 AM EDT completed escitalopram 1 0 MG Oral Tablet [Lexapro] [facility]ILDA ([facility]) Escitalopram 10 MG Oral Tablet [Lexapro] Lexapro 10 mg tablet take one tablet po daily Lexapro 10 mg tablet take one tablet po daily 10/28/2019 12: 00:00 AM EDT completed escitalopram 1 0 MG Oral Tablet [Lexapro] [facility]ILDA ([facility]) Escitalopram 10 MG Oral Tablet [Lexapro] Lexapro 10 mg tablet take one tablet po daily Lexapro 10 mg tablet take one tablet po daily 10/28/2019 12: 00:00 AM EDT completed escitalopram 1 0 MG Oral Tablet [Lexapro] [facility]ILDA ([facility]) Escitalopram 10 MG Oral Tablet [Lexapro] Lexapro 10 mg tablet take one tablet po daily Lexapro 10 mg tablet take one tablet po daily 10/28/2019 12: 00:00 AM EDT completed escitalopram 1 0 MG Oral Tablet [Lexapro] [facility]ILDA ([facility]) Escitalopram 10 MG Oral Tablet [Lexapro] Lexapro 10 mg tablet take one tablet po daily Lexapro 10 mg tablet take one tablet po daily 10/28/2019 12: 00:00 AM EDT completed escitalopram 1 0 MG Oral Tablet [Lexapro] [facility]ILDA ([facility]) Escitalopram 10 MG Oral Tablet [Lexapro] Lexapro 10 mg tablet take one tablet po daily Lexapro 10 mg tablet take one tablet po daily 10/28/2019 12: 00:00 AM EDT completed escitalopram 1 0 MG Oral Tablet [Lexapro] [facility]ILDA ([facility]) Escitalopram 10 MG Oral Tablet [Lexapro] Lexapro 10 mg tablet take one tablet po daily Lexapro 10 mg tablet take one tablet po daily 10/28/2019 12: 00:00 AM EDT completed escitalopram 1 0 MG Oral Tablet [Lexapro] HILDA ([facility]) Escitalopram 10 MG Oral Tablet [Lexapro] Lexapro 10 mg tablet take one tablet po daily Lexapro 10 mg tablet take one tablet po daily 10/28/2019 12: 00:00 AM EDT completed escitalopram 1 0 MG Oral Tablet [Lexapro] [facility]ILDA ([facility]) Escitalopram 10 MG Oral Tablet [Lexapro] Lexapro 10 mg tablet take one tablet po daily Lexapro 10 mg tablet take one tablet po daily 10/28/2019 12: 00:00 AM EDT completed escitalopram 1 0 MG Oral Tablet [Lexapro] HILDA ([facility]) Escitalopram 10 MG Oral Tablet [Lexapro] Lexapro 10 mg tablet take one tablet po daily Lexapro 10 mg tablet take one tablet po daily 10/28/2019 12: 00:00 AM EDT completed escitalopram 1 0 MG Oral Tablet [Lexapro] HILDA ([facility]) Escitalopram 10 MG Oral Tablet [Lexapro] Lexapro 10 mg tablet take one tablet po daily Lexapro 10 mg tablet take one tablet po daily 10/28/2019 12: 00:00 AM EDT completed [facility]ram 1 0 [facility] 10 MG Oral Tablet [Lexapro] Lexapro 10 mg tablet take one tablet po daily Lexapro 10 mg tablet take one tablet po daily 10/28/2019 12: 00:00 AM EDT completed escitalopram 1 0 MG [facility] Tablet [facility]] [facility] Escital[facility]ram 10 MG Oral Tablet [Lexapro] Lexapro 10 mg tablet take one tablet po daily Lexapro 10 mg tablet take one tablet po daily 10/28/2019 12: 00:00 AM EDT completed escitalopram 1 0 MG Oral Tablet [Lexapro] [facility]ILDA ([facility]) Escitalopram 10 MG Oral Tablet [Lexapro] Lexapro 10 mg tablet take one tablet po daily Lexapro 10 mg tablet take one tablet po daily 10/28/2019 12: 00:00 AM EDT completed escitalopram 1 0 MG Oral Tablet [Lexapro] [facility]ILDA ([facility]) Escitalopram 10 MG Oral Tablet [Lexapro] Lexapro 10 mg tablet take one tablet po daily Lexapro 10 mg tablet take one tablet po daily 10/28/2019 12: 00:00 AM EDT completed escitalopram 1 0 MG Oral Tablet [Lexapro] [facility]ILDA ([facility]) Escitalopram 10 MG Oral Tablet [Lexapro] Lexapro 10 mg tablet take one tablet po daily Lexapro 10 mg tablet take one tablet po daily 10/28/2019 12: 00:00 AM EDT completed escitalopram 1 0 MG Oral Tablet [Lexapro] [place] ([facility]) Escitalopram 10 MG Oral Tablet [Lexapro] Lexapro 10 mg tablet Take 1 tablet by mouth once daily Lexapro 10 mg tablet Take 1 tablet by mouth once daily 09/10/2019 12:00:00 AM EDT completed escitalopram 10 MG Oral Tablet [Lexapro] [place] ([facility]) Escitalopram 10 MG Oral Tablet [Lexapro] Lexapro 10 mg tablet Take 1 tablet by mouth once daily Lexapro 10 mg tablet Take 1 tablet by mouth once daily 09/10/2019 12:00:00 AM EDT completed escitalopram 10 MG Oral Tablet [Lexapro] [place] ([facility]) Trazodone Hydrochloride 50 MG Oral Table t trazodone 50 mg tablet TAKE 1 TABLET BY MOUTH ONCE DAILY AT BEDTIME trazodone 50 mg tablet TAKE 1 TABLET BY MOUTH ONCE DAILY AT BEDTIME completed trazodone hydrochloride 50 MG Oral Tablet [facility]ILDA ([facility]) Trazodone Hydrochloride 50 MG Oral Table t trazodone 50 mg tablet TAKE 1 TABLET BY MOUTH ONCE DAILY AT BEDTIME trazodone 50 mg tablet TAKE 1 TABLET BY MOUTH ONCE DAILY AT BEDTIME completed trazodone hydrochloride 50 MG Oral Tablet [facility]ILDA ([facility]) Hydroxyzine Hydrochloride 10 MG Oral Tab let hydroxyzine HCl 10 mg tablet TAKE 1 TO 2 TABLETS BY MOUTH EVERY 6 HOURS NEEDED hydroxyzine HCl 10 mg tablet TAKE 1 TO 2 TABLETS BY MOUTH EVERY 6 HOURS NEEDED completed hydroxyzine hydrochloride 10 MG Oral Tablet [facility]DA ([facility]) Trazodone Hydrochloride 50 MG Oral Table t trazodone 50 mg tablet TAKE 1 TABLET BY MOUTH ONCE DAILY AT BEDTIME trazodone 50 mg tablet TAKE 1 TABLET BY MOUTH ONCE DAILY AT BEDTIME completed trazodone hydrochloride 50 MG Oral Tablet [facility]DA ([facility]) Trazodone Hydrochloride 50 MG Oral Table t trazodone 50 mg tablet TAKE 1 TABLET BY MOUTH ONCE DAILY AT BEDTIME trazodone 50 mg tablet TAKE 1 TABLET BY MOUTH ONCE DAILY AT BEDTIME completed trazodone hydrochloride 50 MG Oral Tablet [facility]DA ([facility]) cetirizine hydrochloride 10 MG Oral Tabl et cetirizine 10 mg tablet TAKE 1 TABLET BY MOUTH ONCE DAILY cetirizine 10 mg tablet TAKE 1 TABLET BY MOUTH ONCE DA ANTHONY completed cetirizine hyd rochloride 10 MG Oral Tablet [facility]ILDA ([facility]) cetirizine hydrochloride 10 MG Oral Tabl et cetirizine 10 mg tablet TAKE 1 TABLET BY MOUTH ONCE DAILY cetirizine 10 mg tablet TAKE 1 TABLET BY MOUTH ONCE DA ANTHONY completed cetirizine hyd rochloride 10 MG Oral Tablet [facility]ILDA ([facility]) Hydroxyzine Hydrochloride 10 MG Oral Tab let hydroxyzine HCl 10 mg tablet TAKE 1 TO 2 TABLETS BY MOUTH EVERY 6 HOURS NEEDED hydroxyzine HCl 10 mg tablet TAKE 1 TO 2 TABLETS BY MOUTH EVERY 6 HOURS NEEDED completed hydroxyzine hydrochloride 10 MG Oral Tablet [place] ([facility]) fluticasone propionate 50 mcg/actuation nasal spray,suspension [place] 1 spray every day by intranasal route as needed. [id number] 1 spray(s) completed fluticasone propionate 0.05 MG/ACTUAT Me tered Dose Nasal [place] ([facility]) Trazodone Hydrochloride 50 MG Oral Table t trazodone 50 mg tablet TAKE 1 TABLET BY MOUTH ONCE DAILY AT BEDTIME trazodone 50 mg tablet TAKE 1 TABLET BY MOUTH ONCE DAILY AT BEDTIME completed trazodone hydrochloride 50 MG Oral Tablet [facility]DA ([facility]) Escitalopram 10 MG Oral Tablet escitalop [place] 10 mg tablet TAKE 1 TABLET BY MOUTH ONCE DAILY escitalopram 10 mg tablet TAKE 1 TABLET BY MOUTH ONCE DAILY completed escitalopram 10 MG Oral T ablet HILDA ([facility]) cetirizine hydrochloride 10 MG Oral Tabl et cetirizine 10 mg tablet TAKE 1 TABLET BY MOUTH ONCE DAILY cetirizine 10 mg tablet TAKE 1 TABLET BY MOUTH ONCE DA ANTHONY completed cetirizine hyd rochloride 10 MG Oral Tablet [facility]ILDA ([facility]) cetirizine hydrochloride 10 MG Oral Tabl et cetirizine 10 mg tablet TAKE 1 TABLET BY MOUTH ONCE DAILY cetirizine 10 mg tablet TAKE 1 TABLET BY MOUTH ONCE DA ANTHONY completed cetirizine hyd rochloride 10 MG Oral Tablet [facility]ILDA ([facility]) cetirizine hydrochloride 10 MG Oral Tabl et cetirizine 10 mg tablet TAKE 1 TABLET BY MOUTH ONCE DAILY cetirizine 10 mg tablet TAKE 1 TABLET BY MOUTH ONCE DA ANTHONY completed cetirizine hyd rochloride 10 MG Oral Tablet [facility]ILDA ([facility]) Hydroxyzine Hydrochloride 10 MG Oral Tab let hydroxyzine HCl 10 mg tablet TAKE 1 TO 2 TABLETS BY MOUTH EVERY 6 HOURS NEEDED hydroxyzine HCl 10 mg tablet TAKE 1 TO 2 TABLETS BY MOUTH EVERY 6 HOURS NEEDED completed hydroxyzine hydrochloride 10 MG Oral Tablet [facility]DA ([facility]) cetirizine hydrochloride 10 MG Oral Tabl et cetirizine 10 mg tablet TAKE 1 TABLET BY MOUTH ONCE DAILY cetirizine 10 mg tablet TAKE 1 TABLET BY MOUTH ONCE DA ANTHONY completed cetirizine hyd rochloride 10 MG Oral Tablet [facility]DA ([facility]) cetirizine hydrochloride 10 MG Oral Tabl et cetirizine 10 mg tablet TAKE 1 TABLET BY MOUTH ONCE DAILY cetirizine 10 mg tablet TAKE 1 TABLET BY MOUTH ONCE DA ANTHONY completed cetirizine hyd rochloride 10 MG Oral Tablet [facility]ILDA ([facility]) cetirizine hydrochloride 10 MG Oral Tabl et cetirizine 10 mg tablet TAKE 1 TABLET BY MOUTH ONCE DAILY cetirizine 10 mg tablet TAKE 1 TABLET BY MOUTH ONCE DA ANTHONY completed cetirizine hyd rochloride 10 MG Oral Tablet [facility]ILDA ([facility]) albuterol sulfate HFA 90 mcg/actuation a erosol inhaler INHALE 2 PUFFS BY MOUTH EVERY 4 HOURS NEEDED [id number] completed [id number] 200 ACTUAT albuterol 0.09 MG/ACTUAT Metered Dose Inhaler HILDA ([facility]) Trazodone Hydrochloride 50 MG Oral [...] escitalopram 10 MG Oral T ablet [facility]ILDA ([facility]) Trazodone Hydrochloride 50 MG Oral Table t trazodone 50 mg tablet TAKE 1 TABLET BY MOUTH ONCE DAILY AT BEDTIME trazodone 50 mg tablet TAKE 1 TABLET BY MOUTH ONCE DAILY AT BEDTIME completed trazodone hydrochloride 50 MG Oral Tablet [facility] ([facility]) Trazodone Hydrochloride 50 MG Oral Table t trazodone 50 mg tablet TAKE 1 TABLET BY MOUTH ONCE DAILY AT BEDTIME trazodone 50 mg tablet TAKE 1 TABLET BY MOUTH ONCE DAILY AT BEDTIME completed trazodone hydrochloride 50 MG Oral Tablet [facility] ([facility]) Hydroxyzine Hydrochloride 10 MG Oral Tab let hydroxyzine HCl 10 mg tablet TAKE 1 TO 2 TABLETS BY MOUTH EVERY 6 HOURS NEEDED hydroxyzine HCl 10 mg tablet TAKE 1 TO 2 TABLETS BY MOUTH EVERY 6 HOURS NEEDED completed hydroxyzine hydrochloride 10 MG Oral Tablet [facility]DA ([facility]) cetirizine hydrochloride 10 MG Oral Tabl et cetirizine 10 mg tablet TAKE 1 TABLET BY MOUTH ONCE DAILY cetirizine 10 mg tablet TAKE 1 TABLET BY MOUTH ONCE DA ANTHONY completed cetirizine hyd rochloride 10 MG Oral Tablet HILDA ([facility]) Escitalopram 10 MG Oral Tablet escitalop yuko 10 mg tablet TAKE 1 TABLET BY MOUTH ONCE DAILY escitalopram 10 mg tablet TAKE 1 TABLET BY MOUTH ONCE DAILY completed escitalopram 10 MG Oral T ablet HILDA ([facility]) cetirizine hydrochloride 10 MG Oral Tabl et cetirizine 10 mg tablet TAKE 1 TABLET BY MOUTH ONCE DAILY cetirizine 10 mg tablet TAKE 1 TABLET BY MOUTH ONCE DA ANTHONY completed cetirizine hyd rochloride 10 MG Oral Tablet HILDA ([facility]) Hydroxyzine Hydrochloride 10 MG Oral Tab let hydroxyzine HCl 10 mg tablet TAKE 1 TO 2 TABLETS BY MOUTH EVERY 6 HOURS NEEDED hydroxyzine HCl 10 mg tablet TAKE 1 TO 2 TABLETS BY MOUTH EVERY 6 HOURS NEEDED completed hydroxyzine hydrochloride 10 MG Oral Tablet HILDA ([facility]) Lorazepam 1 MG Oral Tablet lorazepam 1 m g tablet TAKE 1 TABLET BY MOUTH ONCE DAILY NEEDED . DO NOT EXCEED 1 PER 24 HOURS lorazepam 1 mg tablet TAKE 1 TABLET BY MOUTH ONCE DAILY NEEDED . DO NOT EXCEED 1 PER 24 HOURS completed lorazepam 1 MG Oral Tablet ATHEN A ([facility]) cetirizine hydrochloride 10 MG Oral Tabl et cetirizine 10 mg tablet TAKE 1 TABLET BY MOUTH ONCE DAILY cetirizine 10 mg tablet TAKE 1 TABLET BY MOUTH ONCE DA ANTHONY completed cetirizine hyd rochloride 10 MG Oral Tablet HILDA ([facility]) cetirizine hydrochloride 10 MG Oral Tabl et cetirizine 10 mg tablet TAKE 1 TABLET BY MOUTH ONCE DAILY cetirizine 10 mg tablet TAKE 1 TABLET BY MOUTH ONCE DA ANTHONY completed cetirizine hyd rochloride 10 MG Oral Tablet HILDA ([facility]) Sumatriptan 25 MG Oral Tablet sumatripta n 25 mg tablet Take 1 tablet po at onset of migraine, repeat in 2 hrs if headache persists; MDD 2 tablets sumatriptan 25 mg tablet Take 1 tablet po at onset of migraine, repeat in 2 hrs if headache persists; MDD 2 tablets completed sumatriptan 25 MG Oral Tablet MAKAWAO ([facility]) albuterol sulfate HFA 90 mcg/actuation a erosol inhaler INHALE 2 PUFFS BY MOUTH EVERY 4 HOURS NEEDED [id number] completed [id number] 200 ACTUAT albuterol 0.09 MG/ACTUAT Metered Dose Inhaler MAKAWAO ([facility]) fluticasone propionate 50 mcg/actuation nasal spray,suspension [place] 1 spray every day by intranasal route as needed. [id number] 1 spray(s) completed fluticasone propionate 0.05 MG/ACTUAT Me tered Dose Nasal [place] MAKAWAO ([facility]) Trazodone Hydrochloride 50 MG Oral Table t trazodone 50 mg tablet TAKE 1 TABLET BY MOUTH ONCE DAILY AT BEDTIME trazodone 50 mg tablet TAKE 1 TABLET BY MOUTH ONCE DAILY AT BEDTIME completed trazodone hydrochloride 50 MG Oral Tablet HILDA ([facility]) Trazodone Hydrochloride 50 MG Oral Table t trazodone 50 mg tablet TAKE 1 TABLET BY MOUTH ONCE DAILY AT BEDTIME trazodone 50 mg tablet TAKE 1 TABLET BY MOUTH ONCE DAILY AT BEDTIME completed trazodone hydrochloride 50 MG Oral Tablet HILDA ([facility]) Hydroxyzine Hydrochloride 25 MG Oral Tab let hydroxyzine HCl 25 mg tablet TAKE 1 TO 2 TABLETS BY MOUTH ONCE DAILY NEEDED hydroxyzine HCl 25 mg tablet TAKE 1 TO 2 TABLETS BY MOUTH ONCE DAILY NEEDED completed hydroxyzine hydrochloride 25 MG Oral Tablet HILDA ([facility]) Trazodone Hydrochloride 50 MG Oral Table t trazodone 50 mg tablet TAKE 1 TABLET BY MOUTH ONCE DAILY AT BEDTIME trazodone 50 mg tablet TAKE 1 TABLET BY MOUTH ONCE DAILY AT BEDTIME completed trazodone hydrochloride 50 MG Oral Tablet HILDA ([facility]) cetirizine hydrochloride 10 MG Oral Tabl et cetirizine 10 mg tablet TAKE 1 TABLET BY MOUTH ONCE DAILY cetirizine 10 mg tablet TAKE 1 TABLET BY MOUTH ONCE DA ANTHONY completed cetirizine hyd rochloride 10 MG Oral Tablet HILDA ([facility]) Trazodone Hydrochloride 50 MG Oral Table t trazodone 50 mg tablet TAKE 1 TABLET BY MOUTH ONCE DAILY AT BEDTIME trazodone 50 mg tablet TAKE 1 TABLET BY MOUTH ONCE DAILY AT BEDTIME completed trazodone hydrochloride 50 MG Oral Tablet HILDA ([facility]) Escitalopram 10 MG Oral Tablet escitalop yuko 10 mg tablet TAKE 1 TABLET BY MOUTH ONCE DAILY escitalopram 10 mg tablet TAKE 1 TABLET BY MOUTH ONCE DAILY completed escitalopram 10 MG Oral T ablet HILDA ([facility]) cetirizine hydrochloride 10 MG Oral Tabl et cetirizine 10 mg tablet TAKE 1 TABLET BY MOUTH ONCE DAILY cetirizine 10 mg tablet TAKE 1 TABLET BY MOUTH ONCE DA ANTHONY completed cetirizine hyd rochloride 10 MG Oral Tablet HILDA ([facility]) Trazodone Hydrochloride 50 MG Oral Table t trazodone 50 mg tablet TAKE 1 TABLET BY MOUTH ONCE DAILY AT BEDTIME trazodone 50 mg tablet TAKE 1 TABLET BY MOUTH ONCE DAILY AT BEDTIME completed trazodone hydrochloride 50 MG Oral Tablet HILDA ([facility]) Trazodone Hydrochloride 50 MG Oral Table t trazodone 50 mg tablet TAKE 1 TABLET BY MOUTH ONCE DAILY AT BEDTIME trazodone 50 mg tablet TAKE 1 TABLET BY MOUTH ONCE DAILY AT BEDTIME completed trazodone hydrochloride 50 MG Oral Tablet HILDA ([facility]) Lorazepam 1 MG Oral Tablet lorazepam 1 m g tablet TAKE 1 TABLET BY MOUTH ONCE DAILY NEEDED . DO NOT EXCEED 1 PER 24 HOURS lorazepam 1 mg tablet TAKE 1 TABLET BY MOUTH ONCE DAILY NEEDED . DO NOT EXCEED 1 PER 24 HOURS completed lorazepam 1 MG Oral Tablet ATHEN A ([facility]) Escitalopram 10 MG Oral Tablet escitalop yuko 10 mg tablet TAKE 1 TABLET BY MOUTH ONCE DAILY escitalopram 10 mg tablet TAKE 1 TABLET BY MOUTH ONCE DAILY completed escitalopram 10 MG Oral T ablet HILDA ([facility]) Hydroxyzine Hydrochloride 10 MG Oral Tab let hydroxyzine HCl 10 mg tablet TAKE 1 TO 2 TABLETS BY MOUTH EVERY 6 HOURS NEEDED hydroxyzine HCl 10 mg tablet TAKE 1 TO 2 TABLETS BY MOUTH EVERY 6 HOURS NEEDED completed hydroxyzine hydrochloride 10 MG Oral Tablet HILDA ([facility]) Trazodone Hydrochloride 50 MG Oral Table t trazodone 50 mg tablet TAKE 1 TABLET BY MOUTH ONCE DAILY AT BEDTIME trazodone 50 mg tablet TAKE 1 TABLET BY MOUTH ONCE DAILY AT BEDTIME completed trazodone hydrochloride 50 MG Oral Tablet [facility]DA ([facility]) cetirizine hydrochloride 10 MG Oral Tabl et cetirizine 10 mg tablet TAKE 1 TABLET BY MOUTH ONCE DAILY cetirizine 10 mg tablet TAKE 1 TABLET BY MOUTH ONCE DA ANTHONY completed cetirizine hyd rochloride 10 MG Oral Tablet HILDA ([facility]) Hydroxyzine Hydrochloride 10 MG Oral Tab let hydroxyzine HCl 10 mg tablet TAKE 1 TO 2 TABLETS BY MOUTH EVERY 6 HOURS NEEDED hydroxyzine HCl 10 mg tablet TAKE 1 TO 2 TABLETS BY MOUTH EVERY 6 HOURS NEEDED completed hydroxyzine hydrochloride 10 MG Oral Tablet HILDA ([facility]) Hydroxyzine Hydrochloride 10 MG Oral Tab let hydroxyzine HCl 10 mg tablet TAKE 1 TO 2 TABLETS BY MOUTH EVERY 6 HOURS NEEDED hydroxyzine HCl 10 mg tablet TAKE 1 TO 2 TABLETS BY MOUTH EVERY 6 HOURS NEEDED completed hydroxyzine hydrochloride 10 MG Oral Tablet HILDA ([facility]) Omeprazole 20 MG Delayed Release Oral Ca psule omeprazole 20 mg capsule,delayed release TAKE 1 CAPSULE BY MOUTH IN THE MORNING ON AN EMPTY STOMACH omeprazole 20 mg capsule,delayed release TAKE 1 CAPSULE BY MOUTH IN THE MORNING ON AN EMPTY STOMACH completed omeprazole 20 MG Delayed Release Oral Capsule HILDA ([facility]) Escitalopram 10 MG Oral Tablet escitalop yuko 10 mg tablet TAKE 1 TABLET BY MOUTH ONCE DAILY escitalopram 10 mg tablet TAKE 1 TABLET BY MOUTH ONCE DAILY completed escitalopram 10 MG Oral T ablet HILDA ([facility]) Escitalopram 10 MG Oral Tablet escitalop yuko 10 mg tablet TAKE 1 TABLET BY MOUTH ONCE DAILY escitalopram 10 mg tablet TAKE 1 TABLET BY MOUTH ONCE DAILY completed escitalopram 10 MG Oral T ablet HILDA ([facility]) Trazodone Hydrochloride 50 MG Oral Table t trazodone 50 mg tablet TAKE 1 TABLET BY MOUTH ONCE DAILY AT BEDTIME trazodone 50 mg tablet TAKE 1 TABLET BY MOUTH ONCE DAILY AT BEDTIME completed trazodone hydrochloride 50 MG Oral Tablet HILDA ([facility]) cetirizine hydrochloride 10 MG Oral Tabl et cetirizine 10 mg tablet TAKE 1 TABLET BY MOUTH ONCE DAILY cetirizine 10 mg tablet TAKE 1 TABLET BY MOUTH ONCE DA ANTHONY completed cetirizine hyd rochloride 10 MG Oral Tablet HILDA ([facility]) cetirizine hydrochloride 10 MG Oral Tabl et cetirizine 10 mg tablet TAKE 1 TABLET BY MOUTH ONCE DAILY cetirizine 10 mg tablet TAKE 1 TABLET BY MOUTH ONCE DA ANTHONY completed cetirizine hyd rochloride 10 MG Oral Tablet HILDA ([facility]) Trazodone Hydrochloride 50 MG Oral Table t trazodone 50 mg tablet TAKE 1 TABLET BY MOUTH ONCE DAILY AT BEDTIME trazodone 50 mg tablet TAKE 1 TABLET BY MOUTH ONCE DAILY AT BEDTIME completed trazodone hydrochloride 50 MG Oral Tablet HILDA ([facility]) Trazodone Hydrochloride 50 MG Oral Table t trazodone 50 mg tablet TAKE 1 TABLET BY MOUTH ONCE DAILY AT BEDTIME trazodone 50 mg tablet TAKE 1 TABLET BY MOUTH ONCE DAILY AT BEDTIME completed trazodone hydrochloride 50 MG Oral Tablet HILDA ([facility]) Trazodone Hydrochloride 50 MG Oral Table t trazodone 50 mg tablet TAKE 1 TABLET BY MOUTH ONCE DAILY AT BEDTIME trazodone 50 mg tablet TAKE 1 TABLET BY MOUTH ONCE DAILY AT BEDTIME completed trazodone hydrochloride 50 MG Oral Tablet HILDA ([facility]) cetirizine hydrochloride 10 MG Oral Tabl et cetirizine 10 mg tablet TAKE 1 TABLET BY MOUTH ONCE DAILY cetirizine 10 mg tablet TAKE 1 TABLET BY MOUTH ONCE DA ANTHONY completed cetirizine hyd rochloride 10 MG Oral Tablet HILDA ([facility]) cetirizine hydrochloride 10 MG Oral Tabl et cetirizine 10 mg tablet TAKE 1 TABLET BY MOUTH ONCE DAILY cetirizine 10 mg tablet TAKE 1 TABLET BY MOUTH ONCE DA ANTHONY completed cetirizine hyd rochloride 10 MG Oral Tablet HILDA ([facility]) Trazodone Hydrochloride 50 MG Oral Table t trazodone 50 mg tablet TAKE 1 TABLET BY MOUTH ONCE DAILY AT BEDTIME trazodone 50 mg tablet TAKE 1 TABLET BY MOUTH ONCE DAILY AT BEDTIME completed trazodone hydrochloride 50 MG Oral Tablet HILDA ([facility]) Omeprazole 20 MG Delayed Release Oral Ca psule omeprazole 20 mg capsule,delayed release TAKE 1 CAPSULE BY MOUTH IN THE MORNING ON AN EMPTY STOMACH omeprazole 20 mg capsule,delayed release TAKE 1 CAPSULE BY MOUTH IN THE MORNING ON AN EMPTY STOMACH completed omeprazole 20 MG Delayed Release Oral Capsule [place] ([facility]) Trazodone Hydrochloride 50 MG Oral Table t trazodone 50 mg tablet TAKE 1 TABLET BY MOUTH ONCE DAILY AT BEDTIME trazodone 50 mg tablet TAKE 1 TABLET BY MOUTH ONCE DAILY AT BEDTIME completed trazodone hydrochloride 50 MG Oral Tablet HILDA ([facility]) Hydroxyzine Hydrochloride 10 MG Oral Tab let hydroxyzine HCl 10 mg tablet TAKE 1 TO 2 TABLETS BY MOUTH EVERY 6 HOURS NEEDED hydroxyzine HCl 10 mg tablet TAKE 1 TO 2 TABLETS BY MOUTH EVERY 6 HOURS NEEDED completed hydroxyzine hydrochloride 10 MG Oral Tablet HILDA ([facility]) cetirizine hydrochloride 10 MG Oral Tabl et cetirizine 10 mg tablet TAKE 1 TABLET BY MOUTH ONCE DAILY cetirizine 10 mg tablet TAKE 1 TABLET BY MOUTH ONCE DA ANTHONY completed cetirizine hyd rochloride 10 MG Oral Tablet HILDA ([facility]) Trazodone Hydrochloride 50 MG Oral Table t trazodone 50 mg tablet TAKE 1 TABLET BY MOUTH ONCE DAILY AT BEDTIME trazodone 50 mg tablet TAKE 1 TABLET BY MOUTH ONCE DAILY AT BEDTIME completed trazodone hydrochloride 50 MG Oral Tablet HILDA ([facility]) Escitalopram 10 MG Oral Tablet escitalop yuko 10 mg tablet TAKE 1 TABLET BY MOUTH ONCE DAILY escitalopram 10 mg tablet TAKE 1 TABLET BY MOUTH ONCE DAILY completed escitalopram 10 MG Oral T ablet HILDA ([facility]) Trazodone Hydrochloride 50 MG Oral Table t trazodone 50 mg tablet TAKE 1 TABLET BY MOUTH ONCE DAILY AT BEDTIME trazodone 50 mg tablet TAKE 1 TABLET BY MOUTH ONCE DAILY AT BEDTIME completed trazodone hydrochloride 50 MG Oral Tablet HILDA ([facility]) Trazodone Hydrochloride 50 MG Oral Table t trazodone 50 mg tablet TAKE 1 TABLET BY MOUTH ONCE DAILY AT BEDTIME trazodone 50 mg tablet TAKE 1 TABLET BY MOUTH ONCE DAILY AT BEDTIME completed trazodone hydrochloride 50 MG Oral Tablet HILDA ([facility]) Sumatriptan 25 MG Oral Tablet sumatripta n 25 mg tablet Take 1 tablet po at onset of migraine, repeat in 2 hrs if headache persists; MDD 2 tablets sumatriptan 25 mg tablet Take 1 tablet po at onset of migraine, repeat in 2 hrs if headache persists; MDD 2 tablets completed sumatriptan 25 MG Oral Tablet HILDA ([facility]) Hydroxyzine Hydrochloride 25 MG Oral Tab let hydroxyzine HCl 25 mg tablet TAKE 1 TO 2 TABLETS BY MOUTH ONCE DAILY NEEDED hydroxyzine HCl 25 mg tablet TAKE 1 TO 2 TABLETS BY MOUTH ONCE DAILY NEEDED completed hydroxyzine hydrochloride 25 MG Oral Tablet HILDA ([facility]) Hydroxyzine Hydrochloride 10 MG Oral Tab let hydroxyzine HCl 10 mg tablet TAKE 1 TO 2 TABLETS BY MOUTH EVERY 6 HOURS NEEDED hydroxyzine HCl 10 mg tablet TAKE 1 TO 2 TABLETS BY MOUTH EVERY 6 HOURS NEEDED completed hydroxyzine hydrochloride 10 MG Oral Tablet HILDA ([facility]) Escitalopram 10 MG Oral Tablet escitalop yuko 10 mg tablet TAKE 1 TABLET BY MOUTH ONCE DAILY escitalopram 10 mg tablet TAKE 1 TABLET BY MOUTH ONCE DAILY completed escitalopram 10 MG Oral T ablet HILDA ([facility]) Trazodone Hydrochloride 50 MG Oral Table t trazodone 50 mg tablet TAKE 1 TABLET BY MOUTH ONCE DAILY AT BEDTIME trazodone 50 mg tablet TAKE 1 TABLET BY MOUTH ONCE DAILY AT BEDTIME completed trazodone hydrochloride 50 MG Oral Tablet HILDA ([facility]) Escitalopram 10 MG Oral Tablet escitalop yuko 10 mg tablet TAKE 1 TABLET BY MOUTH ONCE DAILY escitalopram 10 mg tablet TAKE 1 TABLET BY MOUTH ONCE DAILY completed escitalopram 10 MG Oral T ablet HILDA ([facility]) Trazodone Hydrochloride 50 MG Oral Table t trazodone 50 mg tablet TAKE 1 TABLET BY MOUTH ONCE DAILY AT BEDTIME trazodone 50 mg tablet TAKE 1 TABLET BY MOUTH ONCE DAILY AT BEDTIME completed trazodone hydrochloride 50 MG Oral Tablet HILDA ([facility]) Trazodone Hydrochloride 50 MG Oral Table t trazodone 50 mg tablet TAKE 1 TABLET BY MOUTH ONCE DAILY AT BEDTIME trazodone 50 mg tablet TAKE 1 TABLET BY MOUTH ONCE DAILY AT BEDTIME completed trazodone hydrochloride 50 MG Oral Tablet HILDA ([facility]) cetirizine hydrochloride 10 MG Oral Tabl et cetirizine 10 mg tablet TAKE 1 TABLET BY MOUTH ONCE DAILY cetirizine 10 mg tablet TAKE 1 TABLET BY MOUTH ONCE DA ANTHONY completed cetirizine hyd rochloride 10 MG Oral Tablet [place] ([facility]) Insurance Providers Payer name Policy type / Coverage type Policy ID Covered libertarian ID Covered libertarian's relationship to mahajan Policy Mahajan Plan Information [employer] [id number] SP [id number] SELF PAY ONLY [id number] SP [id number] [employer] [place]/307 [id number] SP [id number] [place] 302/307 [id number] SP [id number] BCBS PLAN [id number] SP [id number] Sliding Fee Scale P None S No ne [employer] [facility] [id number] SP [id number] MEDICAID [id number] MEDICAID [id number] SP [id number] [employer] COMMUN[employer] PLAN MCDO [id number] SP [id number] [facility] [employer] COMP [id number] SP [id number] SELF PAY ONLY [id number] SP [id number] O UNAVAILABLE UNAVAILA BLE SELF PAY UNAVAILABLE SP UNAVAILA BLE EXCELLUS BCBS B [id number] S [id number] [place] 302/307 [id number] SP [id number] [place] 306/[phone] [id number] SP [id number] Self Pay S UNAVAILABLE S UNAVAILA BLE AETNA [facility] [place] [id number] [facility] [id number] SP [id number] Problems, Conditions, and Diagnoses Code Display Name Description Problem Type Effective Dates Data Source(s) 323807875 COVID-19 Covid-19 Problem 11/19/2020 12:00:00 AM ED T HILDA ([facility]) [id number] COVID-19 Covid-19 Problem 11/19/2020 12:00:00 AM ED T HILDA ([facility]) [id number] Migraine Migraine Problem 05/20/2020 12:00:00 AM ED T MEDJUAN RAMON ([facility]) [id number] Headache Headache Problem 05/20/2020 12:00:00 AM ED T MEDENT ([facility]) [id number] Numbness Numbness Problem 05/20/2020 12:00:00 AM ED T MEDENT ([facility]) [id number] Elevated blood-pressure reading without diagnosis of hypertension Elevated Blood-pressure Reading without Diagnosis of Hypertension Problem 02/02/2020 12:00:00 AM EST HILDA ([facility]) [id number] Elevated blood-pressure reading without diagnosis of hypertension Elevated Blood-pressure Reading without Diagnosis of Hypertension Problem 02/02/2020 12:00:00 AM EST HILDA ([facility]) [id number] Elevated blood-pressure reading without diagnosis of hypertension Elevated Blood-pressure Reading without Diagnosis of Hypertension Problem 02/02/2020 12:00:00 AM EST HILDA ([facility]) [id number] Elevated blood-pressure reading without diagnosis of hypertension Elevated Blood-pressure Reading without Diagnosis of Hypertension Problem 02/02/2020 12:00:00 AM EST HILDA ([facility]) [id number] Elevated blood-pressure reading without diagnosis of hypertension Elevated Blood-pressure Reading without Diagnosis of Hypertension Problem 02/02/2020 12:00:00 AM EST HILDA ([facility]) [id number] Elevated blood-pressure reading without diagnosis of hypertension Elevated Blood-pressure Reading without Diagnosis of Hypertension Problem 02/02/2020 12:00:00 AM EST HILDA ([facility]) [id number] Elevated blood-pressure reading without diagnosis of hypertension Elevated Blood-pressure Reading without Diagnosis of Hypertension Problem 02/02/2020 12:00:00 AM EST HILDA ([facility]) [id number] Elevated blood-pressure reading without diagnosis of hypertension Elevated Blood-pressure Reading without Diagnosis of Hypertension Problem 02/02/2020 12:00:00 AM EST HILDA ([facility]) [id number] Elevated blood-pressure reading without diagnosis of hypertension Elevated Blood-pressure Reading without Diagnosis of Hypertension Problem 02/02/2020 12:00:00 AM EST HILDA ([facility]) [id number] Elevated blood-pressure reading without diagnosis of hypertension Elevated Blood-pressure Reading without Diagnosis of Hypertension Problem 02/02/2020 12:00:00 AM EST HILDA ([facility]) [id number] Elevated blood-pressure reading without diagnosis of hypertension Elevated Blood-pressure Reading without Diagnosis of Hypertension Problem 02/02/2020 12:00:00 AM EST HILDA ([facility]) [id number] Elevated blood-pressure reading without diagnosis of hypertension Elevated Blood-pressure Reading without Diagnosis of Hypertension Problem 02/02/2020 12:00:00 AM EST HILDA ([facility]) [id number] Elevated blood-pressure reading without diagnosis of hypertension Elevated Blood-pressure Reading without Diagnosis of Hypertension Problem 02/02/2020 12:00:00 AM EST HILDA ([facility]) [id number] Elevated blood-pressure reading without diagnosis of hypertension Elevated Blood-pressure Reading without Diagnosis of Hypertension Problem 02/02/2020 12:00:00 AM EST HILDA ([facility]) [id number] Elevated blood-pressure reading without diagnosis of hypertension Elevated Blood-pressure Reading without Diagnosis of Hypertension Problem 02/02/2020 12:00:00 AM EST HILDA ([facility]) [id number] Elevated blood-pressure reading without diagnosis of hypertension Elevated Blood-pressure Reading without Diagnosis of Hypertension Problem 02/02/2020 12:00:00 AM EST HILDA ([facility]) [id number] Elevated blood-pressure reading without diagnosis of hypertension Elevated Blood-pressure Reading without Diagnosis of Hypertension Problem 02/02/2020 12:00:00 AM EST HILDA ([facility]) [id number] Elevated blood-pressure reading without diagnosis of hypertension Elevated Blood-pressure Reading without Diagnosis of Hypertension Problem 02/02/2020 12:00:00 AM EST HILDA ([facility]) [id number] Elevated blood-pressure reading without diagnosis of hypertension Elevated Blood-pressure Reading without Diagnosis of Hypertension Problem 02/02/2020 12:00:00 AM EST HILDA ([facility]) [id number] Elevated blood-pressure reading without diagnosis of hypertension Elevated Blood-pressure Reading without Diagnosis of Hypertension Problem 02/02/2020 12:00:00 AM EST HILDA ([facility]) [id number] Elevated blood-pressure reading without diagnosis of hypertension Elevated Blood-pressure Reading without Diagnosis of Hypertension Problem 02/02/2020 12:00:00 AM EST HILDA ([facility]) [id number] Elevated blood-pressure reading without diagnosis of hypertension Elevated Blood-pressure Reading without Diagnosis of Hypertension Problem 02/02/2020 12:00:00 AM EST HILDA ([facility]) [id number] Elevated blood-pressure reading without diagnosis of hypertension Elevated Blood-pressure Reading without Diagnosis of Hypertension Problem 02/02/2020 12:00:00 AM EST HILDA ([facility]) [id number] Elevated blood-pressure reading without diagnosis of hypertension Elevated Blood-pressure Reading without Diagnosis of Hypertension Problem 02/02/2020 12:00:00 AM EST HILDA ([facility]) [id number] Elevated blood-pressure reading without diagnosis of hypertension Elevated Blood-pressure Reading without Diagnosis of Hypertension Problem 02/02/2020 12:00:00 AM EST HILDA ([facility]) [id number] Elevated blood-pressure reading without diagnosis of hypertension Elevated Blood-pressure Reading without Diagnosis of Hypertension Problem 02/02/2020 12:00:00 AM EST HILDA ([facility]) [id number] Elevated blood-pressure reading without diagnosis of hypertension Elevated Blood-pressure Reading without Diagnosis of Hypertension Problem 02/02/2020 12:00:00 AM EST HILDA ([facility]) [id number] Electrocardiogram abnormal Electrocardiogram Abnormal Problem 01/07/2020 12:00:00 AM EST HILDA ([facility]) [id number] Precordial pain Precordial Pain Problem 01/07/2020 12:0 0:00 AM EST HILDA ([facility]) [id number] Palpitations Palpitations Problem 01/07/2020 12:00:00 A M EST HILDA ([facility]) [id number] Gastroesophageal reflux disease Gastroesophageal Reflux Disease Problem 01/07/2020 12:00:00 AM EST HILDA ([facility]) [id number] Body mass index 30+ - obesity Body Mass Index 30+ - Ob esity Problem 01/07/2020 12:00:00 AM EST HILDA ([facility]) [id number] Electrocardiogram abnormal Electrocardiogram Abnormal Problem 01/07/2020 12:00:00 AM EST HILDA ([facility]) [id number] Precordial pain Precordial Pain Problem 01/07/2020 12:0 0:00 AM EST HILDA ([facility]) [id number] Palpitations Palpitations Problem 01/07/2020 12:00:00 A M EST HILDA ([facility]) [id number] Gastroesophageal reflux disease Gastroesophageal Reflux Disease Problem 01/07/2020 12:00:00 AM EST [place] ([facility]) [id number] Body mass index 30+ - obesity Body Mass Index 30+ - Ob esity Problem 01/07/2020 12:00:00 AM EST [facility] ([facility]) K21.9 Gastroesophageal reflux disease Gastroesophageal reflu x disease Problem 01/07/2020 12:00:00 AM EST [facility] ([facility]) R00.2 Palpitations Palpitations Problem 01/07/2020 12:00:00 A M EST [facility] ([facility]) Z68.30 Body mass index 30+ - obesity Body mass index 30+ - ob esity Problem 01/07/2020 12:00:00 AM EST [facility] ([facility]) R94.31 Electrocardiogram abnormal Electrocardiogram abnormal Problem 01/07/2020 12:00:00 AM EST [facility] ([facility]) R07.2 Precordial pain Precordial pain Problem 01/07/2020 12:0 0:00 AM EST [facility] ([facility]) [id number] Panic disorder without agoraphobia Panic Disorde r without Agoraphobia Problem 12/29/2019 12:00:00 AM EST [place] ([facility]) [id number] Panic disorder without agoraphobia Panic Disorde r without Agoraphobia Problem 12/29/2019 12:00:00 AM EST [place] ([facility]) [id number] Panic disorder without agoraphobia Panic Disorde r without Agoraphobia Problem 12/29/2019 12:00:00 AM EST [place] ([facility]) [id number] Panic disorder without agoraphobia Panic Disorde r without Agoraphobia Problem 12/29/2019 12:00:00 AM EST [place] ([facility]) [id number] Panic disorder without agoraphobia Panic Disorde r without Agoraphobia Problem 12/29/2019 12:00:00 AM EST [place] ([facility]) [id number] Panic disorder without agoraphobia Panic Disorde r without Agoraphobia Problem 12/29/2019 12:00:00 AM EST [place] ([facility]) [id number] Panic disorder without agoraphobia Panic Disorde r without Agoraphobia Problem 12/29/2019 12:00:00 AM EST [place] ([facility]) [id number] Panic disorder without agoraphobia Panic Disorde r without Agoraphobia Problem 12/29/2019 12:00:00 AM EST [place] ([facility]) [id number] Panic disorder without agoraphobia Panic Disorde r without Agoraphobia Problem 12/29/2019 12:00:00 AM EST [place] ([facility]) [id number] Panic disorder without agoraphobia Panic Disorde r without Agoraphobia Problem 12/29/2019 12:00:00 AM EST [place] ([facility]) [id number] Panic disorder without agoraphobia Panic Disorde r without Agoraphobia Problem 12/29/2019 12:00:00 AM EST [place] ([facility]) [id number] Panic disorder without agoraphobia Panic Disorde r without Agoraphobia Problem 12/29/2019 12:00:00 AM EST [place] ([facility]) [id number] Panic disorder without agoraphobia Panic Disorde r without Agoraphobia Problem 12/29/2019 12:00:00 AM EST [place] ([facility]) [id number] Panic disorder without agoraphobia Panic Disorde r without Agoraphobia Problem 12/29/2019 12:00:00 AM EST [place] ([facility]) [id number] Panic disorder without agoraphobia Panic Disorde r without Agoraphobia Problem 12/29/2019 12:00:00 AM EST [place] ([facility]) [id number] Panic disorder without agoraphobia Panic Disorde r without Agoraphobia Problem 12/29/2019 12:00:00 AM EST [place] ([facility]) [id number] Panic disorder without agoraphobia Panic Disorde r without Agoraphobia Problem 12/29/2019 12:00:00 AM EST [place] ([facility]) [id number] Panic disorder without agoraphobia Panic Disorde r without Agoraphobia Problem 12/29/2019 12:00:00 AM EST [place] ([facility]) [id number] Panic disorder without agoraphobia Panic Disorde r without Agoraphobia Problem 12/29/2019 12:00:00 AM EST [place] ([facility]) [id number] Panic disorder without agoraphobia Panic Disorde r without Agoraphobia Problem 12/29/2019 12:00:00 AM EST [place] ([facility]) [id number] Panic disorder without agoraphobia Panic Disorde r without Agoraphobia Problem 12/29/2019 12:00:00 AM EST [place] ([facility]) [id number] Panic disorder without agoraphobia Panic Disorde r without Agoraphobia Problem 12/29/2019 12:00:00 AM EST [place] ([facility]) [id number] Panic disorder without agoraphobia Panic Disorde r without Agoraphobia Problem 12/29/2019 12:00:00 AM EST [place] ([facility]) [id number] Panic disorder without agoraphobia Panic Disorde r without Agoraphobia Problem 12/29/2019 12:00:00 AM EST [place] ([facility]) [id number] Panic disorder without agoraphobia Panic Disorde r without Agoraphobia Problem 12/29/2019 12:00:00 AM EST [facility] ([facility]) [id number] Panic disorder without agoraphobia Panic Disorde r without Agoraphobia Problem 12/29/2019 12:00:00 AM EST [facility] ([facility]) [id number] Panic disorder without agoraphobia Panic Disorde r without Agoraphobia Problem 12/29/2019 12:00:00 AM EST [facility] ([facility]) [id number] Panic disorder without agoraphobia Panic Disorde r without Agoraphobia Problem 12/29/2019 12:00:00 AM EST [facility] ([facility]) [id number] Panic disorder without agoraphobia Panic Disorde r without Agoraphobia Problem 12/29/2019 12:00:00 AM EST [place] ([facility]) [id number] Panic disorder without agoraphobia Panic Disorde r without Agoraphobia Problem 12/29/2019 12:00:00 AM EST [place] ([facility]) [id number] Panic disorder without agoraphobia Panic Disorde r without Agoraphobia Problem 12/29/2019 12:00:00 AM EST [place] ([facility]) [id number] Panic disorder without agoraphobia Panic Disorde r without Agoraphobia Problem 12/29/2019 12:00:00 AM EST [facility] ([facility]) [id number] Panic disorder without agoraphobia Panic Disorde r without Agoraphobia Problem 12/29/2019 12:00:00 AM EST [facility] ([facility]) [id number] Panic disorder without agoraphobia Panic Disorde r without Agoraphobia Problem 12/29/2019 12:00:00 AM EST [place] ([facility]) [id number] Psychophysiologic insomnia Psychophysiologic Insomnia Problem 12/11/2019 12:00:00 AM EST [facility] ([facility]) [id number] Psychophysiologic insomnia Psychophysiologic Insomnia Problem 12/11/2019 12:00:00 AM EST [facility] ([facility]) [id number] Psychophysiologic insomnia Psychophysiologic Insomnia Problem 12/11/2019 12:00:00 AM EST [place] ([facility]) [id number] Psychophysiologic insomnia Psychophysiologic Insomnia Problem 12/11/2019 12:00:00 AM EST [place] ([facility]) [id number] Psychophysiologic insomnia Psychophysiologic Insomnia Problem 12/11/2019 12:00:00 AM EST [facility] ([facility]) [id number] Psychophysiologic insomnia Psychophysiologic Insomnia Problem 12/11/2019 12:00:00 AM EST [place] ([facility]) [id number] Psychophysiologic insomnia Psychophysiologic Insomnia Problem 12/11/2019 12:00:00 AM EST [place] ([facility]) [id number] Psychophysiologic insomnia Psychophysiologic Insomnia Problem 12/11/2019 12:00:00 AM EST [facility] ([facility]) [id number] Psychophysiologic insomnia Psychophysiologic Insomnia Problem 12/11/2019 12:00:00 AM EST [place] ([facility]) [id number] Psychophysiologic insomnia Psychophysiologic Insomnia Problem 12/11/2019 12:00:00 AM EST [place] ([facility]) [id number] Psychophysiologic insomnia Psychophysiologic Insomnia Problem 12/11/2019 12:00:00 AM EST [place] ([facility]) [id number] Psychophysiologic insomnia Psychophysiologic Insomnia Problem 12/11/2019 12:00:00 AM EST [facility] ([facility]) [id number] Psychophysiologic insomnia Psychophysiologic Insomnia Problem 12/11/2019 12:00:00 AM EST [place] ([facility]) [id number] Psychophysiologic insomnia Psychophysiologic Insomnia Problem 12/11/2019 12:00:00 AM EST [place] ([facility]) [id number] Psychophysiologic insomnia Psychophysiologic Insomnia Problem 12/11/2019 12:00:00 AM EST [facility] ([facility]) [id number] Psychophysiologic insomnia Psychophysiologic Insomnia Problem 12/11/2019 12:00:00 AM EST [facility] ([facility]) [id number] Psychophysiologic insomnia Psychophysiologic Insomnia Problem 12/11/2019 12:00:00 AM EST [facility] ([facility]) [id number] Psychophysiologic insomnia Psychophysiologic Insomnia Problem 12/11/2019 12:00:00 AM EST [facility] ([facility]) [id number] Psychophysiologic insomnia Psychophysiologic Insomnia Problem 12/11/2019 12:00:00 AM EST [facility] ([facility]) [id number] Psychophysiologic insomnia Psychophysiologic Insomnia Problem 12/11/2019 12:00:00 AM EST [facility] ([facility]) [id number] Psychophysiologic insomnia Psychophysiologic Insomnia Problem 12/11/2019 12:00:00 AM EST [facility] ([facility]) [id number] Psychophysiologic insomnia Psychophysiologic Insomnia Problem 12/11/2019 12:00:00 AM EST [facility] ([facility]) [id number] Psychophysiologic insomnia Psychophysiologic Insomnia Problem 12/11/2019 12:00:00 AM EST [facility] ([facility]) [id number] Psychophysiologic insomnia Psychophysiologic Insomnia Problem 12/11/2019 12:00:00 AM EST [facility] ([facility]) [id number] Psychophysiologic insomnia Psychophysiologic Insomnia Problem 12/11/2019 12:00:00 AM EST [place] ([facility]) [id number] Psychophysiologic insomnia Psychophysiologic Insomnia Problem 12/11/2019 12:00:00 AM EST [facility] ([facility]) [id number] Psychophysiologic insomnia Psychophysiologic Insomnia Problem 12/11/2019 12:00:00 AM EST [facility] ([facility]) [id number] Psychophysiologic insomnia Psychophysiologic Insomnia Problem 12/11/2019 12:00:00 AM EST [facility] ([facility]) [id number] Psychophysiologic insomnia Psychophysiologic Insomnia Problem 12/11/2019 12:00:00 AM EST [facility] ([facility]) [id number] Psychophysiologic insomnia Psychophysiologic Insomnia Problem 12/11/2019 12:00:00 AM EST [place] ([facility]) [id number] Psychophysiologic insomnia Psychophysiologic Insomnia Problem 12/11/2019 12:00:00 AM EST [facility] ([facility]) [id number] Psychophysiologic insomnia Psychophysiologic Insomnia Problem 12/11/2019 12:00:00 AM EST [facility] ([facility]) [id number] Psychophysiologic insomnia Psychophysiologic Insomnia Problem 12/11/2019 12:00:00 AM EST [facility] ([facility]) [id number] Psychophysiologic insomnia Psychophysiologic Insomnia Problem 12/11/2019 12:00:00 AM EST [facility] ([facility]) [id number] Psychophysiologic insomnia Psychophysiologic Insomnia Problem 12/11/2019 12:00:00 AM EST [facility] ([facility]) [id number] Psychophysiologic insomnia Psychophysiologic Insomnia Problem 12/11/2019 12:00:00 AM EST [facility] ([facility]) [id number] Psychophysiologic insomnia Psychophysiologic Insomnia Problem 12/11/2019 12:00:00 AM EST [facility] ([facility]) [id number] Psychophysiologic insomnia Psychophysiologic Insomnia Problem 12/11/2019 12:00:00 AM EST [facility] ([facility]) [id number] Generalized anxiety disorder Generalized Anxiety Disor sallie Problem 12/01/2019 12:00:00 AM EDT [facility] ([facility]) [id number] Generalized anxiety disorder Generalized Anxiety Disor sallie Problem 12/01/2019 12:00:00 AM EDT [facility] ([facility]) [id number] Generalized anxiety disorder Generalized Anxiety Disor sallie Problem 12/01/2019 12:00:00 AM EDT [facility] ([facility]) [id number] Generalized anxiety disorder Generalized Anxiety Disor sallie Problem 12/01/2019 12:00:00 AM EDT [facility] ([facility]) [id number] Generalized anxiety disorder Generalized Anxiety Disor sallie Problem 12/01/2019 12:00:00 AM EDT [place] ([facility]) [id number] Generalized anxiety disorder Generalized Anxiety Disor sallie Problem 12/01/2019 12:00:00 AM EDT [facility] ([facility]) [id number] Generalized anxiety disorder Generalized Anxiety Disor sallie Problem 12/01/2019 12:00:00 AM EDT [facility] ([facility]) [id number] Generalized anxiety disorder Generalized Anxiety Disor sallie Problem 12/01/2019 12:00:00 AM EDT [place] ([facility]) [id number] Generalized anxiety disorder Generalized Anxiety Disor sallie Problem 12/01/2019 12:00:00 AM EDT [facility] ([facility]) [id number] Generalized anxiety disorder Generalized Anxiety Disor sallie Problem 12/01/2019 12:00:00 AM EDT [place] ([facility]) [id number] Generalized anxiety disorder Generalized Anxiety Disor sallie Problem 12/01/2019 12:00:00 AM EDT [place] ([facility]) [id number] Generalized anxiety disorder Generalized Anxiety Disor sallie Problem 12/01/2019 12:00:00 AM EDT [facility] ([facility]) [id number] Generalized anxiety disorder Generalized Anxiety Disor sallie Problem 12/01/2019 12:00:00 AM EDT [facility] ([facility]) [id number] Generalized anxiety disorder Generalized Anxiety Disor sallie Problem 12/01/2019 12:00:00 AM EDT [facility] ([facility]) [id number] Generalized anxiety disorder Generalized Anxiety Disor sallie Problem 12/01/2019 12:00:00 AM EDT [facility] ([facility]) [id number] Generalized anxiety disorder Generalized Anxiety Disor sallie Problem 12/01/2019 12:00:00 AM EDT [place] ([facility]) [id number] Generalized anxiety disorder Generalized Anxiety Disor sallie Problem 12/01/2019 12:00:00 AM EDT [place] ([facility]) [id number] Generalized anxiety disorder Generalized Anxiety Disor sallie Problem 12/01/2019 12:00:00 AM EDT [place] ([facility]) [id number] Generalized anxiety disorder Generalized Anxiety Disor sallie Problem 12/01/2019 12:00:00 AM EDT [place] ([facility]) [id number] Generalized anxiety disorder Generalized Anxiety Disor sallie Problem 12/01/2019 12:00:00 AM EDT [facility] ([facility]) [id number] Generalized anxiety disorder Generalized Anxiety Disor sallie Problem 12/01/2019 12:00:00 AM EDT [facility] ([facility]) [id number] Generalized anxiety disorder Generalized Anxiety Disor sallie Problem 12/01/2019 12:00:00 AM EDT [facility] ([facility]) [id number] Generalized anxiety disorder Generalized Anxiety Disor sallie Problem 12/01/2019 12:00:00 AM EDT [facility] ([facility]) [id number] Generalized anxiety disorder Generalized Anxiety Disor sallie Problem 12/01/2019 12:00:00 AM EDT [facility] ([facility]) [id number] Generalized anxiety disorder Generalized Anxiety Disor sallie Problem 12/01/2019 12:00:00 AM EDT [facility] ([facility]) [id number] Generalized anxiety disorder Generalized Anxiety Disor sallie Problem 12/01/2019 12:00:00 AM EDT [facility] ([facility]) 65120039 Generalized anxiety disorder Generalized Anxiety Disor sallie Problem 12/01/2019 12:00:00 AM EDT [facility] ([facility]) [id number] Generalized anxiety disorder Generalized Anxiety Disor sallie Problem 12/01/2019 12:00:00 AM EDT [facility] ([facility]) [id number] Generalized anxiety disorder Generalized Anxiety Disor sallie Problem 12/01/2019 12:00:00 AM EDT [facility] ([facility]) [id number] Generalized anxiety disorder Generalized Anxiety Disor sallie Problem 12/01/2019 12:00:00 AM EDT [place] ([facility]) [id number] Generalized anxiety disorder Generalized Anxiety Disor sallie Problem 12/01/2019 12:00:00 AM EDT [facility] ([facility]) [id number] Generalized anxiety disorder Generalized Anxiety Disor sallie Problem 12/01/2019 12:00:00 AM EDT [facility] ([facility]) [id number] Generalized anxiety disorder Generalized Anxiety Disor sallie Problem 12/01/2019 12:00:00 AM EDT [facility] ([facility]) [id number] Generalized anxiety disorder Generalized Anxiety Disor sallie Problem 12/01/2019 12:00:00 AM EDT [facility] ([facility]) [id number] Generalized anxiety disorder Generalized Anxiety Disor sallie Problem 12/01/2019 12:00:00 AM EDT [facility] ([facility]) [id number] Generalized anxiety disorder Generalized Anxiety Disor sallie Problem 12/01/2019 12:00:00 AM EDT [facility] ([facility]) [id number] Generalized anxiety disorder Generalized Anxiety Disor sallie Problem 12/01/2019 12:00:00 AM EDT [facility] ([facility]) [id number] Generalized anxiety disorder Generalized Anxiety Disor sallie Problem 12/01/2019 12:00:00 AM EDT [facility] ([facility]) [id number] Generalized anxiety disorder Generalized Anxiety Disor sallie Problem 12/01/2019 12:00:00 AM EDT [place] ([facility]) [id number] Generalized anxiety disorder Generalized Anxiety Disor sallie Problem 12/01/2019 12:00:00 AM EDT [place] ([facility]) 427.89 Bradycardia Bradycardia 10/28/2019 04:05:45 PM EDT [facility] [id number] Chest pain, unspecified Chest pain, unspecified 10/28/2019 04:05:45 PM EDT [facility] 121189414 Chronic insomnia Chronic insomnia 10/28/2019 04 :05:45 PM EDT [facility] [id number] Cardiovascular measurement - finding Car diovascular Measurement - Finding Problem 10/28/2019 12:00:00 AM EDT [place] ([facility]) 21572535 Chest pain Chest Pain Problem 10/28/2019 12:00:00 AM ED T [place] ([facility]) [id number] Cardiovascular measurement - finding Car diovascular Measurement - Finding Problem 10/28/2019 12:00:00 AM EDT [place] ([facility]) 71397180 Chest pain Chest Pain Problem 10/28/2019 12:00:00 AM ED T [place] ([facility]) [id number] Cardiovascular measurement - finding Car diovascular Measurement - Finding Problem 10/28/2019 12:00:00 AM EDT [place] ([facility]) [id number] Chest pain Chest Pain Problem 10/28/2019 12:00:00 AM ED T [place] ([facility]) [id number] Cardiovascular measurement - finding Car diovascular Measurement - Finding Problem 10/28/2019 12:00:00 AM EDT [place] ([facility]) [id number] Chest pain Chest Pain Problem 10/28/2019 12:00:00 AM ED T [place] ([facility]) [id number] Cardiovascular measurement - finding Car diovascular Measurement - Finding Problem 10/28/2019 12:00:00 AM EDT [place] ([facility]) [id number] Chest pain Chest Pain Problem 10/28/2019 12:00:00 AM ED T [place] ([facility]) [id number] Cardiovascular measurement - finding Car diovascular Measurement - Finding Problem 10/28/2019 12:00:00 AM EDT [place] ([facility]) [id number] Chest pain Chest Pain Problem 10/28/2019 12:00:00 AM ED T [place] ([facility]) 238321908 Cardiovascular measurement - finding Car diovascular Measurement - Finding Problem 10/28/2019 12:00:00 AM EDT [place] ([facility]) [id number] Chest pain Chest Pain Problem 10/28/2019 12:00:00 AM ED T [place] ([facility]) 189152084 Cardiovascular measurement - finding Car diovascular Measurement - Finding Problem 10/28/2019 12:00:00 AM EDT [place] ([facility]) 66251875 Chest pain Chest Pain Problem 10/28/2019 12:00:00 AM ED T [place] ([facility]) 361524231 Cardiovascular measurement - finding Car diovascular Measurement - Finding Problem 10/28/2019 12:00:00 AM EDT [place] ([facility]) 55571806 Chest pain Chest Pain Problem 10/28/2019 12:00:00 AM ED T [place] ([facility]) [id number] Cardiovascular measurement - finding Car diovascular Measurement - Finding Problem 10/28/2019 12:00:00 AM EDT [place] ([facility]) [id number] Chest pain Chest Pain Problem 10/28/2019 12:00:00 AM ED T [place] ([facility]) [id number] Cardiovascular measurement - finding Car diovascular Measurement - Finding Problem 10/28/2019 12:00:00 AM EDT [facility] ([facility]) 63302551 Chest pain Chest Pain Problem 10/28/2019 12:00:00 AM ED T [place] ([facility]) [id number] Cardiovascular measurement - finding Car diovascular Measurement - Finding Problem 10/28/2019 12:00:00 AM EDT [place] ([facility]) 18254665 Chest pain Chest Pain Problem 10/28/2019 12:00:00 AM ED T [place] ([facility]) [id number] Cardiovascular measurement - finding Car diovascular Measurement - Finding Problem 10/28/2019 12:00:00 AM EDT [place] ([facility]) [id number] Chest pain Chest Pain Problem 10/28/2019 12:00:00 AM ED T [place] ([facility]) [id number] Cardiovascular measurement - finding Car diovascular Measurement - Finding Problem 10/28/2019 12:00:00 AM EDT [place] ([facility]) 55342681 Chest pain Chest Pain Problem 10/28/2019 12:00:00 AM ED T [place] ([facility]) [id number] Cardiovascular measurement - finding Car diovascular Measurement - Finding Problem 10/28/2019 12:00:00 AM EDT [place] ([facility]) [id number] Chest pain Chest Pain Problem 10/28/2019 12:00:00 AM ED T [place] ([facility]) [id number] Cardiovascular measurement - finding Car diovascular Measurement - Finding Problem 10/28/2019 12:00:00 AM EDT [place] ([facility]) [id number] Chest pain Chest Pain Problem 10/28/2019 12:00:00 AM ED T [place] ([facility]) [id number] Cardiovascular measurement - finding Car diovascular Measurement - Finding Problem 10/28/2019 12:00:00 AM EDT [place] ([facility]) [id number] Chest pain Chest Pain Problem 10/28/2019 12:00:00 AM ED T [place] ([facility]) [id number] Cardiovascular measurement - finding Car diovascular Measurement - Finding Problem 10/28/2019 12:00:00 AM EDT [place] ([facility]) [id number] Chest pain Chest Pain Problem 10/28/2019 12:00:00 AM ED T [place] ([facility]) [id number] Cardiovascular measurement - finding Car diovascular Measurement - Finding Problem 10/28/2019 12:00:00 AM EDT [place] ([facility]) [id number] Chest pain Chest Pain Problem 10/28/2019 12:00:00 AM ED T [place] ([facility]) 999642658 Cardiovascular measurement - finding Car diovascular Measurement - Finding Problem 10/28/2019 12:00:00 AM EDT [place] ([facility]) [id number] Chest pain Chest Pain Problem 10/28/2019 12:00:00 AM ED T [place] ([facility]) [id number] Cardiovascular measurement - finding Car diovascular Measurement - Finding Problem 10/28/2019 12:00:00 AM EDT [place] ([facility]) 33346121 Chest pain Chest Pain Problem 10/28/2019 12:00:00 AM ED T [place] ([facility]) [id number] Cardiovascular measurement - finding Car diovascular Measurement - Finding Problem 10/28/2019 12:00:00 AM EDT [facility] ([facility]) [id number] Chest pain Chest Pain Problem 10/28/2019 12:00:00 AM ED T [facility] ([facility]) [id number] Cardiovascular measurement - finding Car diovascular Measurement - Finding Problem 10/28/2019 12:00:00 AM EDT [facility] ([facility]) [id number] Chest pain Chest Pain Problem 10/28/2019 12:00:00 AM ED T [place] ([facility]) 300.02 GENERALIZED ANXIETY DISORDER GENERALIZED ANXIETY DISOR SALLIE 10/14/2019 09:01:07 AM EDT [facility] 300.01 PANIC DISORDER PANIC DISORDER 10/14/2019 09:01: 07 AM EDT [facility] [id number] Panic disorder Panic Disorder Problem 10/14/2019 12:00:00 AM EDT - 06/22/2020 12:00:00 AM EDT [facility] ([facility]) [id number] Panic disorder Panic Disorder Problem 10/14/2019 12:00:00 AM EDT - 06/22/2020 12:00:00 AM EDT [facility] ([facility]) [id number] Panic disorder Panic Disorder Problem 10/14/2019 12:00:00 AM EDT - 06/22/2020 12:00:00 AM EDT [facility] ([facility]) [id number] Panic disorder Panic Disorder Problem 10/14/2019 12:00:00 AM EDT - 06/22/2020 12:00:00 AM EDT [facility] ([facility]) [id number] Panic disorder Panic Disorder Problem 10/14/2019 12:00:00 AM EDT - 06/22/2020 12:00:00 AM EDT [facility] ([facility]) [id number] Panic disorder Panic Disorder Problem 10/14/2019 12:00:00 AM EDT - 06/22/2020 12:00:00 AM EDT [facility] ([facility]) [id number] Panic disorder Panic Disorder Problem 10/14/2019 12:00:00 AM EDT - 06/22/2020 12:00:00 AM EDT [facility] ([facility]) [id number] Panic disorder Panic Disorder Problem 10/14/2019 12:00:00 AM EDT - 06/22/2020 12:00:00 AM EDT [facility] ([facility]) [id number] Panic disorder Panic Disorder Problem 10/14/2019 12:00: 00 AM EDT [facility] ([facility]) [id number] Panic disorder Panic Disorder Problem 10/14/2019 12:00: 00 AM EDT [facility] ([facility]) [id number] Panic disorder Panic Disorder Problem 10/14/2019 12:00: 00 AM EDT [facility] ([facility]) [id number] Panic disorder Panic Disorder Problem 10/14/2019 12:00:00 AM EDT - 06/22/2020 12:00:00 AM EDT [facility] ([facility]) [id number] Panic disorder Panic Disorder Problem 10/14/2019 12:00:00 AM EDT - 06/22/2020 12:00:00 AM EDT [facility] ([facility]) [id number] Panic disorder Panic Disorder Problem 10/14/2019 12:00:00 AM EDT - 06/22/2020 12:00:00 AM EDT [facility] ([facility]) [id number] Panic disorder Panic Disorder Problem 10/14/2019 12:00:00 AM EDT - 06/22/2020 12:00:00 AM EDT [facility] ([facility]) [id number] Panic disorder Panic Disorder Problem 10/14/2019 12:00:00 AM EDT - 06/22/2020 12:00:00 AM EDT [facility] ([facility]) [id number] Panic disorder Panic Disorder Problem 10/14/2019 12:00:00 AM EDT - 06/22/2020 12:00:00 AM EDT [facility] ([facility]) [id number] Panic disorder Panic Disorder Problem 10/14/2019 12:00: 00 AM EDT [facility] ([facility]) [id number] Panic disorder Panic Disorder Problem 10/14/2019 12:00: 00 AM EDT [facility] ([facility]) [id number] Panic disorder Panic Disorder Problem 10/14/2019 12:00: 00 AM EDT [facility] ([facility]) [id number] Panic disorder Panic Disorder Problem 10/14/2019 12:00:00 AM EDT - 06/22/2020 12:00:00 AM EDT [facility] ([facility]) [id number] Panic disorder Panic Disorder Problem 10/14/2019 12:00:00 AM EDT - 06/22/2020 12:00:00 AM EDT [facility] ([facility]) [id number] Panic disorder Panic Disorder Problem 10/14/2019 12:00: 00 AM EDT [facility] ([facility]) [id number] Panic disorder Panic Disorder Problem 09/10/2019 12:00:00 AM EDT - 12/29/2019 12:00:00 AM EST [facility] ([facility]) [id number] Procedure by method Procedure by Method Problem 0 09/10/2019 12:00:00 AM EDT - 12/11/2019 12:00:00 AM EST [facility] ([facility]) [id number] Adjustment disorder with mixed anxiety a nd depressed mood Adjustment Disorder with Mixed Anxiety and Depressed Mood Problem 12:00:00 AM EDT - 06/22/2020 12:00:00 AM EDT [facility] ([facility]) [id number] Panic disorder Panic Disorder Problem 09/10/2019 12:00:00 AM EDT - 12/29/2019 12:00:00 AM EST [facility] ([facility]) [id number] Procedure by method Procedure by Method Problem 0 09/10/2019 12:00:00 AM EDT - 12/11/2019 12:00:00 AM EST [facility] ([facility]) [id number] Adjustment disorder with mixed anxiety a nd depressed mood Adjustment Disorder with Mixed Anxiety and Depressed Mood Problem 12:00:00 AM EDT - 06/22/2020 12:00:00 AM EDT [facility] ([facility]) [id number] Panic disorder Panic Disorder Problem 09/10/2019 12:00:00 AM EDT - 12/29/2019 12:00:00 AM EST [facility] ([facility]) [id number] Procedure by method Procedure by Method Problem 0 09/10/2019 12:00:00 AM EDT - 12/11/2019 12:00:00 AM EST [facility] ([facility]) [id number] Adjustment disorder with mixed anxiety a nd depressed mood Adjustment Disorder with Mixed Anxiety and Depressed Mood Problem 12:00:00 AM EDT - 06/22/2020 12:00:00 AM EDT [facility] ([facility]) [id number] Panic disorder Panic Disorder Problem 09/10/2019 12:00:00 AM EDT - 12/29/2019 12:00:00 AM EST [facility] ([facility]) [id number] Procedure by method Procedure by Method Problem 0 09/10/2019 12:00:00 AM EDT - 12/11/2019 12:00:00 AM EST [facility] ([facility]) [id number] Adjustment disorder with mixed anxiety a nd depressed mood Adjustment Disorder with Mixed Anxiety and Depressed Mood Problem 12:00:00 AM EDT - 06/22/2020 12:00:00 AM EDT [facility] ([facility]) [id number] Panic disorder Panic Disorder Problem 09/10/2019 12:00:00 AM EDT - 12/29/2019 12:00:00 AM EST [facility] ([facility]) [id number] Procedure by method Procedure by Method Problem 0 09/10/2019 12:00:00 AM EDT - 12/11/2019 12:00:00 AM EST [facility] ([facility]) [id number] Adjustment disorder with mixed anxiety a nd depressed mood Adjustment Disorder with Mixed Anxiety and Depressed Mood Problem 12:00:00 AM EDT - 06/22/2020 12:00:00 AM EDT [facility] ([facility]) [id number] Panic disorder Panic Disorder Problem 09/10/2019 12:00:00 AM EDT - 12/29/2019 12:00:00 AM EST [facility] ([facility]) [id number] Procedure by method Procedure by Method Problem 0 09/10/2019 12:00:00 AM EDT - 12/11/2019 12:00:00 AM EST [facility] ([facility]) [id number] Adjustment disorder with mixed anxiety a nd depressed mood Adjustment Disorder with Mixed Anxiety and Depressed Mood Problem 12:00:00 AM EDT - 06/22/2020 12:00:00 AM EDT [facility] ([facility]) [id number] Panic disorder Panic Disorder Problem 09/10/2019 12:00:00 AM EDT - 12/29/2019 12:00:00 AM EST [facility] ([facility]) [id number] Procedure by method Procedure by Method Problem 0 09/10/2019 12:00:00 AM EDT - 12/11/2019 12:00:00 AM EST [facility] ([facility]) [id number] Adjustment disorder with mixed anxiety a nd depressed mood Adjustment Disorder with Mixed Anxiety and Depressed Mood Problem 12:00:00 AM EDT - 06/22/2020 12:00:00 AM EDT [facility] ([facility]) [id number] Panic disorder Panic Disorder Problem 09/10/2019 12:00:00 AM EDT - 12/29/2019 12:00:00 AM EST [facility] ([facility]) [id number] Procedure by method Procedure by Method Problem 0 09/10/2019 12:00:00 AM EDT - 12/11/2019 12:00:00 AM EST [facility] ([facility]) [id number] Adjustment disorder with mixed anxiety a nd depressed mood Adjustment Disorder with Mixed Anxiety and Depressed Mood Problem 12:00:00 AM EDT - 06/22/2020 12:00:00 AM EDT [facility] ([facility]) [id number] Panic disorder Panic Disorder Problem 09/10/2019 12:00:00 AM EDT - 12/29/2019 12:00:00 AM EST [facility] ([facility]) [id number] Procedure by method Procedure by Method Problem 0 09/10/2019 12:00:00 AM EDT - 12/11/2019 12:00:00 AM EST [facility] ([facility]) [id number] Adjustment disorder with mixed anxiety a nd depressed mood Adjustment Disorder with Mixed Anxiety and Depressed Mood Problem 020 12:00:00 AM EDT - 06/22/2020 12:00:00 AM EDT [facility] ([facility]) [id number] Panic disorder Panic Disorder Problem 09/10/2019 12:00:00 AM EDT - 12/29/2019 12:00:00 AM EST [facility] ([facility]) [id number] Procedure by method Procedure by Method Problem 0 09/10/2019 12:00:00 AM EDT - 12/11/2019 12:00:00 AM EST [facility] ([facility]) [id number] Panic disorder Panic Disorder Problem 09/10/2019 12:00:00 AM EDT - 12/29/2019 12:00:00 AM EST [facility] ([facility]) [id number] Procedure by method Procedure by Method Problem 0 09/10/2019 12:00:00 AM EDT - 12/11/2019 12:00:00 AM EST [facility] ([facility]) [id number] Panic disorder Panic Disorder Problem 09/10/2019 12:00:00 AM EDT - 12/29/2019 12:00:00 AM EST [facility] ([facility]) [id number] Procedure by method Procedure by Method Problem 0 09/10/2019 12:00:00 AM EDT - 12/11/2019 12:00:00 AM EST [facility] ([facility]) [id number] Panic disorder Panic Disorder Problem 09/10/2019 12:00:00 AM EDT - 12/29/2019 12:00:00 AM EST [facility] ([facility]) [id number] Procedure by method Procedure by Method Problem 0 09/10/2019 12:00:00 AM EDT - 12/11/2019 12:00:00 AM EST [facility] ([facility]) [id number] Panic disorder Panic Disorder Problem 09/10/2019 12:00:00 AM EDT - 12/29/2019 12:00:00 AM EST [facility] ([facility]) [id number] Procedure by method Procedure by Method Problem 0 09/10/2019 12:00:00 AM EDT - 12/11/2019 12:00:00 AM EST [facility] ([facility]) [id number] Panic disorder Panic Disorder Problem 09/10/2019 12:00:00 AM EDT - 12/29/2019 12:00:00 AM EST [facility] ([facility]) [id number] Procedure by method Procedure by Method Problem 0 09/10/2019 12:00:00 AM EDT - 12/11/2019 12:00:00 AM EST [facility] ([facility]) [id number] Adjustment disorder with mixed anxiety a nd depressed mood Adjustment Disorder with Mixed Anxiety and Depressed Mood Problem 020 12:00:00 AM EDT - 06/22/2020 12:00:00 AM EDT [facility] ([facility]) [id number] Panic disorder Panic Disorder Problem 09/10/2019 12:00:00 AM EDT - 12/29/2019 12:00:00 AM EST [facility] ([facility]) [id number] Procedure by method Procedure by Method Problem 0 09/10/2019 12:00:00 AM EDT - 12/11/2019 12:00:00 AM EST [facility] ([facility]) [id number] Adjustment disorder with mixed anxiety a nd depressed mood Adjustment Disorder with Mixed Anxiety and Depressed Mood Problem 020 12:00:00 AM EDT - 06/22/2020 12:00:00 AM EDT [facility] ([facility]) [id number] Panic disorder Panic Disorder Problem 09/10/2019 12:00:00 AM EDT - 12/29/2019 12:00:00 AM EST [facility] ([facility]) [id number] Procedure by method Procedure by Method Problem 0 09/10/2019 12:00:00 AM EDT - 12/11/2019 12:00:00 AM EST [facility] ([facility]) [id number] Adjustment disorder with mixed anxiety a nd depressed mood Adjustment Disorder with Mixed Anxiety and Depressed Mood Problem 12:00:00 AM EDT - 06/22/2020 12:00:00 AM EDT [facility] ([facility]) [id number] Panic disorder Panic Disorder Problem 09/10/2019 12:00:00 AM EDT - 12/29/2019 12:00:00 AM EST [facility] ([facility]) [id number] Procedure by method Procedure by Method Problem 0 09/10/2019 12:00:00 AM EDT - 12/11/2019 12:00:00 AM EST [facility] ([facility]) [id number] Adjustment disorder with mixed anxiety a nd depressed mood Adjustment Disorder with Mixed Anxiety and Depressed Mood Problem 12:00:00 AM EDT - 06/22/2020 12:00:00 AM EDT [facility] ([facility]) [id number] Panic disorder Panic Disorder Problem 09/10/2019 12:00:00 AM EDT - 12/29/2019 12:00:00 AM EST [facility] ([facility]) [id number] Procedure by method Procedure by Method Problem 0 09/10/2019 12:00:00 AM EDT - 12/11/2019 12:00:00 AM EST [facility] ([facility]) [id number] Panic disorder Panic Disorder Problem 09/10/2019 12:00:00 AM EDT - 12/29/2019 12:00:00 AM EST [facility] ([facility]) [id number] Procedure by method Procedure by Method Problem 0 09/10/2019 12:00:00 AM EDT - 12/11/2019 12:00:00 AM EST [facility] ([facility]) [id number] Adjustment disorder with mixed anxiety a nd depressed mood Adjustment Disorder with Mixed Anxiety and Depressed Mood Problem 12:00:00 AM EDT - 06/22/2020 12:00:00 AM EDT [facility] ([facility]) [id number] Panic disorder Panic Disorder Problem 09/10/2019 12:00:00 AM EDT - 12/29/2019 12:00:00 AM EST [facility] ([facility]) [id number] Procedure by method Procedure by Method Problem 0 09/10/2019 12:00:00 AM EDT - 12/11/2019 12:00:00 AM EST [facility] ([facility]) [id number] Panic disorder Panic Disorder Problem 09/10/2019 12:00:00 AM EDT - 12/29/2019 12:00:00 AM EST [facility] ([facility]) [id number] Procedure by method Procedure by Method Problem 0 09/10/2019 12:00:00 AM EDT - 12/11/2019 12:00:00 AM EST [facility] ([facility]) [id number] Panic disorder Panic Disorder Problem 09/10/2019 12:00:00 AM EDT - 12/29/2019 12:00:00 AM EST [facility] ([facility]) [id number] Procedure by method Procedure by Method Problem 0 09/10/2019 12:00:00 AM EDT - 12/11/2019 12:00:00 AM EST [facility] ([facility]) [id number] Adjustment disorder with mixed anxiety a nd depressed mood Adjustment Disorder with Mixed Anxiety and Depressed Mood Problem 12:00:00 AM EDT - 06/22/2020 12:00:00 AM EDT [facility] ([facility]) [id number] Panic disorder Panic Disorder Problem 09/10/2019 12:00:00 AM EDT - 12/29/2019 12:00:00 AM EST [facility] ([facility]) [id number] Procedure by method Procedure by Method Problem 0 09/10/2019 12:00:00 AM EDT - 12/11/2019 12:00:00 AM EST [facility] ([facility]) [id number] Adjustment disorder with mixed anxiety a nd depressed mood Adjustment Disorder with Mixed Anxiety and Depressed Mood Problem 12:00:00 AM EDT - 06/22/2020 12:00:00 AM EDT [facility] ([facility]) [id number] Panic disorder Panic Disorder Problem 09/10/2019 12:00:00 AM EDT - 12/29/2019 12:00:00 AM EST [facility] ([facility]) [id number] Procedure by method Procedure by Method Problem 0 09/10/2019 12:00:00 AM EDT - 12/11/2019 12:00:00 AM EST [facility] ([facility]) [id number] Panic disorder Panic Disorder Problem 09/10/2019 12:00:00 AM EDT - 12/29/2019 12:00:00 AM EST [facility] ([facility]) [id number] Procedure by method Procedure by Method Problem 0 09/10/2019 12:00:00 AM EDT - 12/11/2019 12:00:00 AM EST [facility] ([facility]) [id number] Panic disorder Panic Disorder Problem 09/10/2019 12:00:00 AM EDT - 12/29/2019 12:00:00 AM EST [facility] ([facility]) [id number] Procedure by method Procedure by Method Problem 0 09/10/2019 12:00:00 AM EDT - 12/11/2019 12:00:00 AM EST [facility] ([facility]) [id number] Procedure by method Procedure by Method Problem 0 09/10/2019 12:00:00 AM EDT - 12/11/2019 12:00:00 AM EST [facility] ([facility]) [id number] Procedure by method Procedure by Method Problem 0 09/10/2019 12:00:00 AM EDT - 12/11/2019 12:00:00 AM EST [facility] ([facility]) [id number] Procedure by method Procedure by Method Problem 0 09/10/2019 12:00:00 AM EDT - 12/11/2019 12:00:00 AM EST [facility] ([facility]) [id number] Procedure by method Procedure by Method Problem 0 09/10/2019 12:00:00 AM EDT - 12/11/2019 12:00:00 AM EST [facility] ([facility]) [id number] Panic disorder Panic Disorder Problem 09/10/2019 12:00:00 AM EDT - 12/29/2019 12:00:00 AM EST [facility] ([facility]) [id number] Procedure by method Procedure by Method Problem 0 09/10/2019 12:00:00 AM EDT - 12/11/2019 12:00:00 AM EST [facility] ([facility]) [id number] Panic disorder Panic Disorder Problem 09/10/2019 12:00:00 AM EDT - 12/29/2019 12:00:00 AM EST [facility] ([facility]) [id number] Procedure by method Procedure by Method Problem 0 09/10/2019 12:00:00 AM EDT - 12/11/2019 12:00:00 AM EST [facility] ([facility]) [id number] Panic disorder Panic Disorder Problem 09/10/2019 12:00:00 AM EDT - 12/29/2019 12:00:00 AM EST [facility] ([facility]) [id number] Procedure by method Procedure by Method Problem 0 09/10/2019 12:00:00 AM EDT - 12/11/2019 12:00:00 AM EST [facility] ([facility]) [id number] Panic disorder Panic Disorder Problem 09/10/2019 12:00:00 AM EDT - 12/29/2019 12:00:00 AM EST [facility] ([facility]) [id number] Procedure by method Procedure by Method Problem 0 09/10/2019 12:00:00 AM EDT - 12/11/2019 12:00:00 AM EST [facility] ([facility]) [id number] Panic disorder Panic Disorder Problem 09/10/2019 12:00:00 AM EDT - 12/29/2019 12:00:00 AM EST [facility] ([facility]) [id number] Procedure by method Procedure by Method Problem 0 09/10/2019 12:00:00 AM EDT - 12/11/2019 12:00:00 AM EST [facility] ([facility]) [id number] Panic disorder Panic Disorder Problem 09/10/2019 12:00:00 AM EDT - 12/29/2019 12:00:00 AM EST [facility] ([facility]) [id number] Procedure by method Procedure by Method Problem 0 09/10/2019 12:00:00 AM EDT - 12/11/2019 12:00:00 AM EST [facility] ([facility]) [id number] Panic disorder Panic Disorder Problem 09/10/2019 12:00:00 AM EDT - 12/29/2019 12:00:00 AM EST [facility] ([facility]) [id number] Procedure by method Procedure by Method Problem 0 09/10/2019 12:00:00 AM EDT - 12/11/2019 12:00:00 AM EST [facility] ([facility]) Surgeries/Procedures Procedure Description Date Indications Data Source(s) XTRNL ECG < 48 HR RECORDING 01/12/2020 12:00:00 AM EST [facility] ([facility]) XTRNL ECG CONTINUOUS RHYTHM PHYS REVIEW&INTERPJ 2019 12:00:00 AM EST [facility] ([facility]) CV STRS TST XERS&/OR RX CONT ECG PHYS SI&R 01/08/2020 12:00:00 AM EST [facility] ([facility]) ECHO TTHRC R-T 2D W/WOM-MODE COMPL SPEC&COLR DOP 01/07 12:00:00 AM EST [facility] ([facility]) ECG ROUTINE ECG W/LEAST 12 LDS W/I&R 01/07/2020 12:00: 00 AM EST [facility] ([facility]) Results ID Date Data Source [id number] 11/19/2020 12:00:00 AM EDT [facility] Name Value Range Interpretation Code Description Data Ellie rce(s) Supporting Document(s) SARS-CoV2 Rapid Antigen Positive [facility] This lab was ordered by [facility] and reported by [facility]. ID Date Data Source [id number] 04/29/2020 04:04:00 PM EDT [place] ([facility]) Name Value Range Interpretation Code Description Data Ellie rce(s) Supporting Document(s) istat HCT 45.0 % 38.0-51.0 Istat HCT [place] ([facility]) istat glucose 94 mg/dL 70-105 Istat Glucose [place] ( [facility]) istat sodium 139 mEq/L 136-145 Istat Sodium [place] ([facility]) istat chloride 99 mEq/L 98-109 Istat Chloride [facility] ([facility]) istat potassium 4.0 mEq/L 3.5-5.1 Istat Potassium ATHE NA ([facility]) istat Ca++ 5.1 mg/dL 4.5-5.3 Istat Ca++ [facility] ([facility]) istat creatinine 1.1 mg/dL 0.6-1.3 Istat Creatinine AT [facility] ([facility]) istat BUN 19 mg/dL 8-26 Istat BUN [facility] ([facility]) istat CO2 29.0 mm/L 23.0-27.0 Above high normal Istat CO2 [facility] ([facility]) ID Date Data Source [id number] 04/29/2020 04:04:00 PM EDT [place] ([facility]) Name Value Range Interpretation Code Description Data Ellie rce(s) Supporting Document(s) istat glucose 94 mg/dL 70-105 Istat Glucose [place] ( [facility]) istat HCT 45.0 % 38.0-51.0 Istat HCT [facility] ([facility]) istat Ca++ 5.1 mg/dL 4.5-5.3 Istat Ca++ [facility] ([facility]) istat chloride 99 mEq/L 98-109 Istat Chloride [facility] ([facility]) istat sodium 139 mEq/L 136-145 Istat Sodium [facility] ([facility]) istat potassium 4.0 mEq/L 3.5-5.1 Istat Potassium ATHE NA ([facility]) istat BUN 19 mg/dL 8-26 Istat BUN [facility] ([facility]) istat CO2 29.0 mm/L 23.0-27.0 Above high normal Istat CO2 [facility] ([facility]) istat creatinine 1.1 mg/dL 0.6-1.3 Istat Creatinine AT [facility] ([facility]) ID Date Data Source [id number] 04/29/2020 04:04:00 PM EDT [place] ([facility]) Name Value Range Interpretation Code Description Data Ellie rce(s) Supporting Document(s) istat HCT 45.0 % 38.0-51.0 Istat HCT [facility] ([facility]) istat glucose 94 mg/dL 70-105 Istat Glucose [facility] ( [facility]) istat Ca++ 5.1 mg/dL 4.5-5.3 Istat Ca++ [facility] ([facility]) istat sodium 139 mEq/L 136-145 Istat Sodium [facility] ([facility]) istat potassium 4.0 mEq/L 3.5-5.1 Istat Potassium ATHE NA ([facility]) istat BUN 19 mg/dL 8-26 Istat BUN [facility] ([facility]) istat chloride 99 mEq/L 98-109 Istat Chloride [facility] ([facility]) istat CO2 29.0 mm/L 23.0-27.0 Above high normal Istat CO2 [facility] ([facility]) istat creatinine 1.1 mg/dL 0.6-1.3 Istat Creatinine AT [facility] ([facility]) ID Date Data Source [id number] 04/29/2020 04:04:00 PM EDT [facility] ([facility]) Name Value Range Interpretation Code Description Data Ellie rce(s) Supporting Document(s) istat HCT 45.0 % 38.0-51.0 Istat HCT [facility] ([facility]) istat glucose 94 mg/dL 70-105 Istat Glucose [facility] ( [facility]) istat sodium 139 mEq/L 136-145 Istat Sodium [facility] ([facility]) istat potassium 4.0 mEq/L 3.5-5.1 Istat Potassium ATHE NA ([facility]) istat Ca++ 5.1 mg/dL 4.5-5.3 Istat Ca++ [facility] ([facility]) istat CO2 29.0 mm/L 23.0-27.0 Above high normal Istat CO2 [facility] ([facility]) istat chloride 99 mEq/L 98-109 Istat Chloride [facility] ([facility]) istat BUN 19 mg/dL 8-26 Istat BUN [facility] ([facility]) istat creatinine 1.1 mg/dL 0.6-1.3 Istat Creatinine AT [facility]) ID Date Data Source [id number] 04/29/2020 04:04:00 PM EDT [place] ([facility]) Name Value Range Interpretation Code Description Data Ellie rce(s) Supporting Document(s) istat HCT 45.0 % 38.0-51.0 Istat HCT [facility] ([facility]) istat potassium 4.0 mEq/L 3.5-5.1 Istat Potassium ATHE NA ([facility]) istat glucose 94 mg/dL 70-105 Istat Glucose [facility] ( [facility]) istat sodium 139 mEq/L 136-145 Istat Sodium HILDA ([facility]) istat CO2 29.0 mm/L 23.0-27.0 Above high normal Istat CO2 HILDA ([facility]) istat chloride 99 mEq/L 98-109 Istat Chloride HILDA ([facility]) istat Ca++ 5.1 mg/dL 4.5-5.3 Istat Ca++ HILDA ([facility]) istat creatinine 1.1 mg/dL 0.6-1.3 Istat Creatinine AT [facility] ([facility]) istat BUN 19 mg/dL 8-26 Istat BUN HILDA ([facility]) ID Date Data Source [id number] 04/29/2020 04:04:00 PM EDT HILDA ([facility]) Name Value Range Interpretation Code Description Data Ellie rce(s) Supporting Document(s) istat HCT 45.0 % 38.0-51.0 Istat HCT HILDA ([facility]) istat potassium 4.0 mEq/L 3.5-5.1 Istat Potassium ATHE NA ([facility]) istat glucose 94 mg/dL 70-105 Istat Glucose HILDA ( [facility]) istat sodium 139 mEq/L 136-145 Istat Sodium HILDA ([facility]) istat CO2 29.0 mm/L 23.0-27.0 Above high normal Istat CO2 HILDA ([facility]) istat Ca++ 5.1 mg/dL 4.5-5.3 Istat Ca++ HILDA ([facility]) istat chloride 99 mEq/L 98-109 Istat Chloride HILDA ([facility]) istat creatinine 1.1 mg/dL 0.6-1.3 Istat Creatinine AT [facility] ([facility]) istat BUN 19 mg/dL 8-26 Istat BUN [place] ([facility]) ID Date Data Source [id number] 04/29/2020 04:04:00 PM EDT HILDA ([facility]) Name Value Range Interpretation Code Description Data Ellie rce(s) Supporting Document(s) istat HCT 45.0 % 38.0-51.0 Istat HCT HILDA ([facility]) istat Ca++ 5.1 mg/dL 4.5-5.3 Istat Ca++ HILDA ([facility]) istat glucose 94 mg/dL 70-105 Istat Glucose HILDA ( [facility]) istat sodium 139 mEq/L 136-145 Istat Sodium HILDA ([facility]) istat potassium 4.0 mEq/L 3.5-5.1 Istat Potassium ATHE NA ([facility]) istat chloride 99 mEq/L 98-109 Istat Chloride HILDA ([facility]) istat BUN 19 mg/dL 8-26 Istat BUN HILDA ([facility]) istat CO2 29.0 mm/L 23.0-27.0 Above high normal Istat CO2 HILDA ([facility]) istat creatinine 1.1 mg/dL 0.6-1.3 Istat Creatinine AT [facility]) ID Date Data Source [id number] 04/29/2020 04:04:00 [facility] Name Value Range Interpretation Code Description Data Ellie rce(s) Supporting Document(s) istat HCT 45.0 % 38.0-51.0 Istat HCT HILDA ([facility]) istat glucose 94 mg/dL 70-105 Istat Glucose HILDA ( [facility]) istat sodium 139 mEq/L 136-145 Istat Sodium HILDA ([facility]) istat potassium 4.0 mEq/L 3.5-5.1 Istat Potassium ATHE NA ([facility]) istat Ca++ 5.1 mg/dL 4.5-5.3 Istat Ca++ HILDA ([facility]) istat CO2 29.0 mm/L 23.0-27.0 Above high normal Istat CO2 HILDA ([facility]) istat chloride 99 mEq/L 98-109 Istat Chloride HILDA ([facility]) istat BUN 19 mg/dL 8-26 Istat BUN [facility]DA ([facility]) istat creatinine 1.1 mg/dL 0.6-1.3 Istat Creatinine AT [facility]) ID Date Data Source [id number] 04/29/2020 04:04:00 PM EDT [facility]) Name Value Range Interpretation Code Description Data Ellie rce(s) Supporting Document(s) istat HCT 45.0 % 38.0-51.0 Istat HCT HILDA ([facility]) istat sodium 139 mEq/L 136-145 Istat Sodium HILDA ([facility]) istat glucose 94 mg/dL 70-105 Istat Glucose HILDA ( [facility]) istat potassium 4.0 mEq/L 3.5-5.1 Istat Potassium ATHE NA ([facility]) istat Ca++ 5.1 mg/dL 4.5-5.3 Istat Ca++ [place] ([facility]) istat CO2 29.0 mm/L 23.0-27.0 Above high normal Istat CO2 HILDA ([facility]) istat chloride 99 mEq/L 98-109 Istat Chloride [place] ([facility]) istat creatinine 1.1 mg/dL 0.6-1.3 Istat Creatinine AT [facility]) istat BUN 19 mg/dL 8-26 Istat BUN [place] ([facility]) ID Date Data Source [id number] 04/29/2020 03:56:00 PM EDT [facility]) Name Value Range Interpretation Code Description Data Ellie rce(s) Supporting Document(s) glucose, fasting 97 mg/dL 70-100 Glucose, Fasting AT [facility]) glomerular filtration rate > 60.0 >60 Glomerula r Filtration Rate [place] ([facility]) blood urea nitrogen 19 mg/dL 7-18 Above high normal Blood Ure a Nitrogen HILDA ([facility]) sodium level 137 mEq/L 136-145 Sodium Level [place] ([facility]) creatinine for GFR 1.12 mg/dL 0.70-1.30 Creatinine for GF R [place] ([facility]) chloride level 103 mEq/L 98-107 Chloride Level [place] ([facility]) carbon dioxide level 31 mEq/L 21-32 Carbon Dioxide Level [place] ([facility]) potassium serum 4.1 mEq/L 3.5-5.1 Potassium Serum ATHE ([facility]) anion gap 3 mEq/L 8-16 Below low normal Anion Gap HILDA ( [facility]) calcium level 9.3 mg/dL 8.5-10.1 Calcium Level HILDA ( [facility]) ID Date Data Source [id number] 04/29/2020 03:56:00 PM EDT HILDA ([facility]) Name Value Range Interpretation Code Description Data Ellie rce(s) Supporting Document(s) ALT/SGPT 25 U/L 12-78 ALT/SGPT [facility]ILDA ([facility]) AST/SGOT 13 U/L 7-37 AST/SGOT HILDA ([facility]) bilirubin,total 0.5 mg/dL 0.2-1.0 Bilirubin,total ATHE ([facility]) bilirubin,direct 0.2 mg/dL 0.0-0.2 Bilirubin,direct AT [facility]) total protein 7.0 gm/dL 6.4-8.2 Total Protein HILDA ( [facility]) alkaline phosphatase 76 U/L 45-117 Alkaline Phosph atase HILDA ([facility]) albumin 4.0 gm/dL 3.2-5.2 Albumin HILDA ([facility]) albumin/globulin ratio Albumin/globu wu Ratio HILDA ([facility]) ID Date Data Source [id number] 04/29/2020 03:56:00 PM EDT HILDA ([facility]) Name Value Range Interpretation Code Description Data Ellie rce(s) Supporting Document(s) CK-mb value mass 1.1 NG/mL <3.6 CK-mb Value Mass AT [facility] ([facility]) CPK creatine phosphokinase 142 U/L 39-308 CPK Creat ine Phosphokinase HILDA ([facility]) troponin I < 0.02 < 0.10 Troponin I HILDA ([facility]) mb/CK relative index < or =4 mb/CK Relative Index HILDA ([facility]) ID Date Data Source [id number] 04/29/2020 03:56:00 PM EDT HILDA ([facility]) Name Value Range Interpretation Code Description Data Ellie rce(s) Supporting Document(s) partial thromboplastin time 30.8 seconds 24.2-38.5 Partial Thromboplastin Time HILDA ([facility]) ID Date Data Source [id number] 04/29/2020 03:56:00 PM EDT HILDA ([facility]) Name Value Range Interpretation Code Description Data Ellie rce(s) Supporting Document(s) prothrombin time 13.2 seconds 12.5-14.3 Prothrombin Time HILDA ([facility]) INR Inr HILDA ([facility]) ID Date Data Source [id number] 04/29/2020 03:56:00 PM EDT HILDA ([facility]) Name Value Range Interpretation Code Description Data Ellie rce(s) Supporting Document(s) white blood count 6.3 10 4.0-10.0 White Blood Count HILDA ([facility]) red blood count 5.45 10 4.30-6.10 Red Blood Count ATHE ([facility]) hematocrit 45.6 % 42.0-52.0 Hematocrit HILDA ([facility]) hemoglobin 15.1 g/dL 13.5-17.5 Hemoglobin HILDA ([facility]) mean corpuscular volume 83.7 fL 80.0-96.0 Mean Corpusc ular Volume HILDA ([facility]) mean corpuscular hemoglobin 27.7 pg 27.0-33.0 Mean Cor puscular Hemoglobin HILDA ([facility]) red cell distribution width 13.5 % 11.5-14.5 Red Cell Distribution Width HILDA ([facility]) mean corpuscular HGB conc 33.1 g/dL 32.0-36.5 Mean Corpu scular HGB Conc HILDA ([facility]) platelet count, automated 230 10 150-450 Platelet C ount, Automated [place] ([facility]) mono % 9.6 % 2.0-8.0 Above high normal [place] % HILDA ([facility]) neutrophils % 53.2 % 36.0-66.0 Neutrophils % HILDA ( [facility]) lymph % 33.6 % 24.0-44.0 Lymph % [place] ([facility]) immature granulocyte % 0.3 % 0-3.0 Immature Gran ulocyte % [place] ([facility]) eos % 2.7 % 0.0-3.0 Eos % [place] ([facility]) baso % 0.6 % 0.0-1.0 Baso % [place] ([facility]) lymph # 2.1 10 1.5-5.0 Lymph # [place] ([facility]) neutrophils # 3.4 10 1.5-8.5 Neutrophils # [place] ( [facility]) nucleated red blood cell % 0.0 % 0-0 Nucleated Red Blood Cell % [place] ([facility]) mono # 0.6 10 0.0-0.8 [place] # HILDA ([facility]) eos # 0.2 10 0.0-0.5 Eos # HILDA ([facility]) baso # 0.0 10 0.0-0.2 Baso # [place] ([facility]) ID Date Data Source [id number] 04/29/2020 03:56:00 PM EDT [place] ([facility]) Name Value Range Interpretation Code Description Data Ellie rce(s) Supporting Document(s) creatinine for GFR 1.12 mg/dL 0.70-1.30 Creatinine for GF R [place] ([facility]) glucose, fasting 97 mg/dL 70-100 Glucose, Fasting AT [facility] ([facility]) blood urea nitrogen 19 mg/dL 7-18 Above high normal Blood Ure a Nitrogen [place] ([facility]) glomerular filtration rate > 60.0 >60 Glomerula r Filtration Rate [place] ([facility]) carbon dioxide level 31 mEq/L 21-32 Carbon Dioxide Level HILDA ([facility]) chloride level 103 mEq/L 98-107 Chloride Level HILDA ([facility]) anion gap 3 mEq/L 8-16 Below low normal Anion Gap HILDA ( [facility]) potassium serum 4.1 mEq/L 3.5-5.1 Potassium Serum ATHE NA ([facility]) sodium level 137 mEq/L 136-145 Sodium Level HILDA ([facility]) calcium level 9.3 mg/dL 8.5-10.1 Calcium Level HILDA ( [facility]) ID Date Data Source [id number] 04/29/2020 03:56:00 [facility] Name Value Range Interpretation Code Description Data Ellie rce(s) Supporting Document(s) ALT/SGPT 25 U/L 12-78 ALT/SGPT HILDA ([facility]) alkaline phosphatase 76 U/L 45-117 Alkaline Phosph atase HILDA ([facility]) AST/SGOT 13 U/L 7-37 AST/SGOT HILDA ([facility]) bilirubin,total 0.5 mg/dL 0.2-1.0 Bilirubin,total ATHE ([facility]) bilirubin,direct 0.2 mg/dL 0.0-0.2 Bilirubin,direct AT [facility]) albumin/globulin ratio Albumin/globu wu Ratio HILDA ([facility]) albumin 4.0 gm/dL 3.2-5.2 Albumin HILDA ([facility]) total protein 7.0 gm/dL 6.4-8.2 Total Protein HILDA ( [facility]) ID Date Data Source [id number] 04/29/2020 03:56:00 PM EDT [facility]) Name Value Range Interpretation Code Description Data Ellie rce(s) Supporting Document(s) CK-mb value mass 1.1 NG/mL <3.6 CK-mb Value Mass AT [facility]) CPK creatine phosphokinase 142 U/L 39-308 CPK Creat ine Phosphokinase HILDA ([facility]) mb/CK relative index < or =4 mb/CK Relative Index HILDA ([facility]) troponin I < 0.02 < 0.10 Troponin I HILDA ([facility]) ID Date Data Source [id number] 04/29/2020 03:56:00 PM EDT HILDA ([facility]) Name Value Range Interpretation Code Description Data Ellie rce(s) Supporting Document(s) partial thromboplastin time 30.8 seconds 24.2-38.5 Partial Thromboplastin Time HILDA ([facility]) ID Date Data Source [id number] 04/29/2020 03:56:00 PM EDT HILDA ([facility]) Name Value Range Interpretation Code Description Data Ellie rce(s) Supporting Document(s) prothrombin time 13.2 seconds 12.5-14.3 Prothrombin Time HILDA ([facility]) INR Inr HILDA ([facility]) ID Date Data Source [id number] 04/29/2020 03:56:00 PM EDT HILDA ([facility]) Name Value Range Interpretation Code Description Data Ellie rce(s) Supporting Document(s) white blood count 6.3 10 4.0-10.0 White Blood Count HILDA ([facility]) hematocrit 45.6 % 42.0-52.0 Hematocrit HILDA ([facility]) red blood count 5.45 10 4.30-6.10 Red Blood Count ATHE NA ([facility]) hemoglobin 15.1 g/dL 13.5-17.5 Hemoglobin HILDA ([facility]) mean corpuscular volume 83.7 fL 80.0-96.0 Mean Corpusc ular Volume HILDA ([facility]) mean corpuscular HGB conc 33.1 g/dL 32.0-36.5 Mean Corpu scular HGB Conc HILDA ([facility]) mean corpuscular hemoglobin 27.7 pg 27.0-33.0 Mean Cor puscular Hemoglobin HILDA ([facility]) red cell distribution width 13.5 % 11.5-14.5 Red Cell Distribution Width HILDA ([facility]) platelet count, automated 230 10 150-450 Platelet C ount, Automated HILDA ([facility]) neutrophils % 53.2 % 36.0-66.0 Neutrophils % HILDA ( [facility]) mono % 9.6 % 2.0-8.0 Above high normal [place] % HILDA ([facility]) baso % 0.6 % 0.0-1.0 Baso % [place] ([facility]) eos % 2.7 % 0.0-3.0 Eos % [place] ([facility]) lymph % 33.6 % 24.0-44.0 Lymph % [place] ([facility]) neutrophils # 3.4 10 1.5-8.5 Neutrophils # HILDA ( [facility]) nucleated red blood cell % 0.0 % 0-0 Nucleated Red Blood Cell % [place] ([facility]) immature granulocyte % 0.3 % 0-3.0 Immature Gran ulocyte % [place] ([facility]) lymph # 2.1 10 1.5-5.0 Lymph # [place] ([facility]) baso # 0.0 10 0.0-0.2 Baso # HILDA ([facility]) mono # 0.6 10 0.0-0.8 [place] # HILDA ([facility]) eos # 0.2 10 0.0-0.5 Eos # HILDA ([facility]) ID Date Data Source [id number] 04/29/2020 03:56:00 PM EDT [place] ([facility]) Name Value Range Interpretation Code Description Data Ellie rce(s) Supporting Document(s) glomerular filtration rate > 60.0 >60 Glomerula r Filtration Rate HILDA ([facility]) creatinine for GFR 1.12 mg/dL 0.70-1.30 Creatinine for GF R HILDA ([facility]) glucose, fasting 97 mg/dL 70-100 Glucose, Fasting AT [facility] ([facility]) blood urea nitrogen 19 mg/dL 7-18 Above high normal Blood Ure a Nitrogen HILDA ([facility]) sodium level 137 mEq/L 136-145 Sodium Level HILDA ([facility]) carbon dioxide level 31 mEq/L 21-32 Carbon Dioxide Level HILDA ([facility]) anion gap 3 mEq/L 8-16 Below low normal Anion Gap HILDA ( [facility]) potassium serum 4.1 mEq/L 3.5-5.1 Potassium Serum ATHE ([facility]) chloride level 103 mEq/L 98-107 Chloride Level HILDA ([facility]) calcium level 9.3 mg/dL 8.5-10.1 Calcium Level HILDA ( [facility]) ID Date Data Source [id number] 04/29/2020 03:56:00 PM EDT HILDA ([facility]) Name Value Range Interpretation Code Description Data Ellie rce(s) Supporting Document(s) AST/SGOT 13 U/L 7-37 AST/SGOT HILDA ([facility]) ALT/SGPT 25 U/L 12-78 ALT/SGPT HILDA ([facility]) total protein 7.0 gm/dL 6.4-8.2 Total Protein HILDA ( [facility]) bilirubin,total 0.5 mg/dL 0.2-1.0 Bilirubin,total ATHE ([facility]) bilirubin,direct 0.2 mg/dL 0.0-0.2 Bilirubin,direct AT [facility] ([facility]) alkaline phosphatase 76 U/L 45-117 Alkaline Phosph atase HILDA ([facility]) albumin 4.0 gm/dL 3.2-5.2 Albumin HILDA ([facility]) albumin/globulin ratio Albumin/globu wu Ratio HILDA ([facility]) ID Date Data Source [id number] 04/29/2020 03:56:00 PM EDT HILDA ([facility]) Name Value Range Interpretation Code Description Data Ellie rce(s) Supporting Document(s) CK-mb value mass 1.1 NG/mL <3.6 CK-mb Value Mass AT [facility] ([facility]) CPK creatine phosphokinase 142 U/L 39-308 CPK Creat ine Phosphokinase HILDA ([facility]) troponin I < 0.02 < 0.10 Troponin I [facility] ([facility]) mb/CK relative index < or =4 mb/CK Relative Index [facility]ILDA ([facility]) ID Date Data Source [id number] 04/29/2020 03:56:00 PM EDT HILDA ([facility]) Name Value Range Interpretation Code Description Data Ellie rce(s) Supporting Document(s) partial thromboplastin time 30.8 seconds 24.2-38.5 Partial Thromboplastin Time HILDA ([facility]) ID Date Data Source [id number] 04/29/2020 03:56:00 PM EDT HILDA ([facility]) Name Value Range Interpretation Code Description Data Ellie rce(s) Supporting Document(s) INR Inr HILDA ([facility]) prothrombin time 13.2 seconds 12.5-14.3 Prothrombin Time [facility]DA ([facility]) ID Date Data Source [id number] 04/29/2020 03:56:00 PM EDT HILDA ([facility]) Name Value Range Interpretation Code Description Data Ellie rce(s) Supporting Document(s) red blood count 5.45 10 4.30-6.10 Red Blood Count ATHE ([facility]) white blood count 6.3 10 4.0-10.0 White Blood Count HILDA ([facility]) hemoglobin 15.1 g/dL 13.5-17.5 Hemoglobin HILDA ([facility]) hematocrit 45.6 % 42.0-52.0 Hematocrit H[facility]DA ([facility]) mean corpuscular volume 83.7 fL 80.0-96.0 Mean Corpusc ular Volume HILDA ([facility]) platelet count, automated 230 10 150-450 Platelet C ount, Automated H[facility] ([facility]) red cell distribution width 13.5 % 11.5-14.5 Red Cell Distribution Width H[facility]DA ([facility]) mean corpuscular hemoglobin 27.7 pg 27.0-33.0 Mean Cor puscular Hemoglobin HILDA ([facility]) mean corpuscular HGB conc 33.1 g/dL 32.0-36.5 Mean Corpu scular HGB Conc HILDA ([facility]) neutrophils % 53.2 % 36.0-66.0 Neutrophils % HILDA ( [facility]) lymph % 33.6 % 24.0-44.0 Lymph % [facility]ILDA ([facility]) mono % 9.6 % 2.0-8.0 Above high normal [place] % HILDA ([facility]) eos % 2.7 % 0.0-3.0 Eos % HILDA ([facility]) baso % 0.6 % 0.0-1.0 Baso % [place] ([facility]) immature granulocyte % 0.3 % 0-3.0 Immature Gran ulocyte % HILDA ([facility]) neutrophils # 3.4 10 1.5-8.5 Neutrophils # [place] ( [facility]) nucleated red blood cell % 0.0 % 0-0 Nucleated Red Blood Cell % HILDA ([facility]) mono # 0.6 10 0.0-0.8 [place] # HILDA ([facility]) baso # 0.0 10 0.0-0.2 Baso # HILDA ([facility]) lymph # 2.1 10 1.5-5.0 Lymph # [facility]ILDA ([facility]) eos # 0.2 10 0.0-0.5 Eos # [facility]ILDA ([facility]) ID Date Data Source [id number] 04/29/2020 03:56:00 PM EDT HILDA ([facility]) Name Value Range Interpretation Code Description Data Ellie rce(s) Supporting Document(s) CPK creatine phosphokinase 142 U/L 39-308 CPK Creat ine Phosphokinase HILDA ([facility]) mb/CK relative index < or =4 mb/CK Relative Index [facility]ILDA ([facility]) CK-mb value mass 1.1 NG/mL <3.6 CK-mb Value Mass AT [facility] ([facility]) troponin I < 0.02 < 0.10 Troponin I HILDA ([facility]) ID Date Data Source [id number] 04/29/2020 03:56:00 PM EDT HILDA ([facility]) Name Value Range Interpretation Code Description Data Ellie rce(s) Supporting Document(s) partial thromboplastin time 30.8 seconds 24.2-38.5 Partial Thromboplastin Time HILDA ([facility]) ID Date Data Source [id number] 04/29/2020 03:56:00 PM EDT HILDA ([facility]) Name Value Range Interpretation Code Description Data Ellie rce(s) Supporting Document(s) prothrombin time 13.2 seconds 12.5-14.3 Prothrombin Time [facility]ILDA ([facility]) INR Inr HILDA ([facility]) ID Date Data Source [id number] 04/29/2020 03:56:00 PM EDT HILDA ([facility]) Name Value Range Interpretation Code Description Data Ellie rce(s) Supporting Document(s) white blood count 6.3 10 4.0-10.0 White Blood Count [facility]DA ([facility]) red blood count 5.45 10 4.30-6.10 Red Blood Count ATHE ([facility]) hemoglobin 15.1 g/dL 13.5-17.5 Hemoglobin HILDA ([facility]) mean corpuscular volume 83.7 fL 80.0-96.0 Mean Corpusc ular Volume HILDA ([facility]) mean corpuscular hemoglobin 27.7 pg 27.0-33.0 Mean Cor puscular Hemoglobin HILDA ([facility]) hematocrit 45.6 % 42.0-52.0 Hematocrit [facility] ([facility]) red cell distribution width 13.5 % 11.5-14.5 Red Cell Distribution Width [facility] [facility]) mean corpuscular HGB conc 33.1 g/dL 32.0-36.5 Mean Corpu scular HGB Conc HILDA ([facility]) platelet count, automated 230 10 150-450 Platelet C ount, Automated HILDA ([facility]) mono % 9.6 % 2.0-8.0 Above high normal [place] % HILDA ([facility]) lymph % 33.6 % 24.0-44.0 Lymph % [place] ([facility]) neutrophils % 53.2 % 36.0-66.0 Neutrophils % [place] ( [facility]) eos % 2.7 % 0.0-3.0 Eos % HILDA ([facility]) baso % 0.6 % 0.0-1.0 Baso % [place] ([facility]) immature granulocyte % 0.3 % 0-3.0 Immature Gran ulocyte % [place] ([facility]) nucleated red blood cell % 0.0 % 0-0 Nucleated Red Blood Cell % [place] ([facility]) neutrophils # 3.4 10 1.5-8.5 Neutrophils # HILDA ( [facility]) lymph # 2.1 10 1.5-5.0 Lymph # HILDA ([facility]) mono # 0.6 10 0.0-0.8 [place] # HILDA ([facility]) eos # 0.2 10 0.0-0.5 Eos # HILDA ([facility]) baso # 0.0 10 0.0-0.2 Baso # HILDA ([facility]) ID Date Data Source [id number] 04/29/2020 03:56:00 PM EDT HILDA ([facility]) Name Value Range Interpretation Code Description Data Ellie rce(s) Supporting Document(s) blood urea nitrogen 19 mg/dL 7-18 Above high normal Blood Ure a Nitrogen HILDA ([facility]) creatinine for GFR 1.12 mg/dL 0.70-1.30 Creatinine for GF R HILDA ([facility]) glucose, fasting 97 mg/dL 70-100 Glucose, Fasting AT [facility]) chloride level 103 mEq/L 98-107 Chloride Level HILDA ([facility]) sodium level 137 mEq/L 136-145 Sodium Level HILDA ([facility]) potassium serum 4.1 mEq/L 3.5-5.1 Potassium Serum ATHE ([facility]) carbon dioxide level 31 mEq/L 21-32 Carbon Dioxide Level [place] ([facility]) glomerular filtration rate > 60.0 >60 Glomerula r Filtration Rate HILDA ([facility]) calcium level 9.3 mg/dL 8.5-10.1 Calcium Level HILDA ( [facility]) anion gap 3 mEq/L 8-16 Below low normal Anion Gap HILDA ( [facility]) ID Date Data Source [id number] 04/29/2020 03:56:00 PM EDT [facility]) Name Value Range Interpretation Code Description Data Ellie rce(s) Supporting Document(s) AST/SGOT 13 U/L 7-37 AST/SGOT HILDA ([facility]) bilirubin,direct 0.2 mg/dL 0.0-0.2 Bilirubin,direct AT [facility]) ALT/SGPT 25 U/L 12-78 ALT/SGPT HILDA ([facility]) bilirubin,total 0.5 mg/dL 0.2-1.0 Bilirubin,total ATHE ([facility]) alkaline phosphatase 76 U/L 45-117 Alkaline Phosph atase HILDA ([facility]) albumin/globulin ratio Albumin/globu wu Ratio HILDA ([facility]) albumin 4.0 gm/dL 3.2-5.2 Albumin HILDA ([facility]) total protein 7.0 gm/dL 6.4-8.2 Total Protein HILDA ( [facility]) ID Date Data Source [id number] 04/29/2020 03:56:00 PM EDT HILDA ([facility]) Name Value Range Interpretation Code Description Data Ellie rce(s) Supporting Document(s) mb/CK relative index < or =4 mb/CK Relative Index HILDA ([facility]) CPK creatine phosphokinase 142 U/L 39-308 CPK Creat ine Phosphokinase HILDA ([facility]) CK-mb value mass 1.1 NG/mL <3.6 CK-mb Value Mass AT SHANI ([facility]) troponin I < 0.02 < 0.10 Troponin I HILDA ([facility]) ID Date Data Source [id number] 04/29/2020 03:56:00 PM EDT HILDA ([facility]) Name Value Range Interpretation Code Description Data Ellie rce(s) Supporting Document(s) partial thromboplastin time 30.8 seconds 24.2-38.5 Partial Thromboplastin Time HILDA ([facility]) ID Date Data Source [id number] 04/29/2020 03:56:00 PM EDT HILDA ([facility]) Name Value Range Interpretation Code Description Data Ellie rce(s) Supporting Document(s) prothrombin time 13.2 seconds 12.5-14.3 Prothrombin Time HILDA ([facility]) INR Inr HILDA ([facility]) ID Date Data Source [id number] 04/29/2020 03:56:00 [facility] Name Value Range Interpretation Code Description Data Ellie rce(s) Supporting Document(s) white blood count 6.3 10 4.0-10.0 White Blood Count HILDA ([facility]) hemoglobin 15.1 g/dL 13.5-17.5 Hemoglobin HILDA ([facility]) red blood count 5.45 10 4.30-6.10 Red Blood Count ATHE NA ([facility]) hematocrit 45.6 % 42.0-52.0 Hematocrit HILDA ([facility]) mean corpuscular hemoglobin 27.7 pg 27.0-33.0 Mean Cor puscular Hemoglobin HILDA ([facility]) mean corpuscular volume 83.7 fL 80.0-96.0 Mean Corpusc ular Volume HILDA ([facility]) red cell distribution width 13.5 % 11.5-14.5 Red Cell Distribution Width HILDA ([facility]) platelet count, automated 230 10 150-450 Platelet C ount, Automated HILDA ([facility]) mean corpuscular HGB conc 33.1 g/dL 32.0-36.5 Mean Corpu scular HGB Conc HILDA ([facility]) mono % 9.6 % 2.0-8.0 Above high normal [place] % HILDA ([facility]) lymph % 33.6 % 24.0-44.0 Lymph % HILDA ([facility]) neutrophils % 53.2 % 36.0-66.0 Neutrophils % HILDA ( [facility]) immature granulocyte % 0.3 % 0-3.0 Immature Gran ulocyte % HILDA ([facility]) eos % 2.7 % 0.0-3.0 Eos % HILDA ([facility]) baso % 0.6 % 0.0-1.0 Baso % HILDA ([facility]) neutrophils # 3.4 10 1.5-8.5 Neutrophils # HILDA ( [facility]) nucleated red blood cell % 0.0 % 0-0 Nucleated Red Blood Cell % HILDA ([facility]) mono # 0.6 10 0.0-0.8 [place] # HILDA ([facility]) lymph # 2.1 10 1.5-5.0 Lymph # HILDA ([facility]) eos # 0.2 10 0.0-0.5 Eos # HILDA ([facility]) baso # 0.0 10 0.0-0.2 Baso # HILDA ([facility]) ID Date Data Source [id number] 04/29/2020 03:56:00 PM EDT [place] ([facility]) Name Value Range Interpretation Code Description Data Ellie rce(s) Supporting Document(s) glucose, fasting 97 mg/dL 70-100 Glucose, Fasting AT [facility]) creatinine for GFR 1.12 mg/dL 0.70-1.30 Creatinine for GF R [place] ([facility]) glomerular filtration rate > 60.0 >60 Glomerula r Filtration Rate [place] ([facility]) blood urea nitrogen 19 mg/dL 7-18 Above high normal Blood Ure a Nitrogen [place] ([facility]) sodium level 137 mEq/L 136-145 Sodium Level [place] ([facility]) chloride level 103 mEq/L 98-107 Chloride Level [place] ([facility]) potassium serum 4.1 mEq/L 3.5-5.1 Potassium Serum ATH NA ([facility]) calcium level 9.3 mg/dL 8.5-10.1 Calcium Level [place] ( [facility]) carbon dioxide level 31 mEq/L 21-32 Carbon Dioxide Level [place] ([facility]) anion gap 3 mEq/L 8-16 Below low normal Anion Gap [place] ( [facility]) ID Date Data Source [id number] 04/29/2020 03:56:00 PM EDT [place] ([facility]) Name Value Range Interpretation Code Description Data Ellie rce(s) Supporting Document(s) AST/SGOT 13 U/L 7-37 AST/SGOT [place] ([facility]) ALT/SGPT 25 U/L 12-78 ALT/SGPT [place] ([facility]) bilirubin,direct 0.2 mg/dL 0.0-0.2 Bilirubin,direct AT [facility] ([facility]) alkaline phosphatase 76 U/L 45-117 Alkaline Phosph atase HILDA ([facility]) bilirubin,total 0.5 mg/dL 0.2-1.0 Bilirubin,total ATHE NA ([facility]) albumin 4.0 gm/dL 3.2-5.2 Albumin HILDA ([facility]) total protein 7.0 gm/dL 6.4-8.2 Total Protein HILDA ( [facility]) albumin/globulin ratio Albumin/globu wu Ratio HILDA ([facility]) ID Date Data Source [id number] 04/29/2020 03:56:00 PM EDT HILDA ([facility]) Name Value Range Interpretation Code Description Data Ellie rce(s) Supporting Document(s) CPK creatine phosphokinase 142 U/L 39-308 CPK Creat ine Phosphokinase HILDA ([facility]) mb/CK relative index < or =4 mb/CK Relative Index HILDA ([facility]) troponin I < 0.02 < 0.10 Troponin I HILDA ([facility]) CK-mb value mass 1.1 NG/mL <3.6 CK-mb Value Mass AT SHANI ([facility]) ID Date Data Source [id number] 04/29/2020 03:56:00 PM EDT HILDA ([facility]) Name Value Range Interpretation Code Description Data Ellie rce(s) Supporting Document(s) partial thromboplastin time 30.8 seconds 24.2-38.5 Partial Thromboplastin Time HILDA ([facility]) ID Date Data Source [id number] 04/29/2020 03:56:00 PM EDT HILDA ([facility]) Name Value Range Interpretation Code Description Data Ellie rce(s) Supporting Document(s) INR Inr HILDA ([facility]) prothrombin time 13.2 seconds 12.5-14.3 Prothrombin Time HILDA ([facility]) ID Date Data Source [id number] 04/29/2020 03:56:00 PM EDT HILDA ([facility]) Name Value Range Interpretation Code Description Data Ellie rce(s) Supporting Document(s) white blood count 6.3 10 4.0-10.0 White Blood Count HILDA ([facility]) red blood count 5.45 10 4.30-6.10 Red Blood Count ATHE NA ([facility]) hemoglobin 15.1 g/dL 13.5-17.5 Hemoglobin HILDA ([facility]) mean corpuscular volume 83.7 fL 80.0-96.0 Mean Corpusc ular Volume HILDA ([facility]) hematocrit 45.6 % 42.0-52.0 Hematocrit HILDA ([facility]) mean corpuscular HGB conc 33.1 g/dL 32.0-36.5 Mean Corpu scular HGB Conc HILDA ([facility]) mean corpuscular hemoglobin 27.7 pg 27.0-33.0 Mean Cor puscular Hemoglobin HILDA ([facility]) red cell distribution width 13.5 % 11.5-14.5 Red Cell Distribution Width HILDA ([facility]) neutrophils % 53.2 % 36.0-66.0 Neutrophils % [place] ( [facility]) lymph % 33.6 % 24.0-44.0 Lymph % [place] ([facility]) platelet count, automated 230 10 150-450 Platelet C ount, Automated HILDA ([facility]) mono % 9.6 % 2.0-8.0 Above high normal [place] % HILDA ([facility]) eos % 2.7 % 0.0-3.0 Eos % HILDA ([facility]) baso % 0.6 % 0.0-1.0 Baso % [place] ([facility]) immature granulocyte % 0.3 % 0-3.0 Immature Gran ulocyte % [place] ([facility]) neutrophils # 3.4 10 1.5-8.5 Neutrophils # HLIDA ( [facility]) nucleated red blood cell % 0.0 % 0-0 Nucleated Red Blood Cell % HILDA ([facility]) lymph # 2.1 10 1.5-5.0 Lymph # HILDA ([facility]) baso # 0.0 10 0.0-0.2 Baso # HILDA ([facility]) eos # 0.2 10 0.0-0.5 Eos # HILDA ([facility]) mono # 0.6 10 0.0-0.8 [place] # HILDA ([facility]) ID Date Data Source [id number] 04/29/2020 03:56:00 PM EDT [place] ([facility]) Name Value Range Interpretation Code Description Data Ellie rce(s) Supporting Document(s) creatinine for GFR 1.12 mg/dL 0.70-1.30 Creatinine for GF R [place] ([facility]) glucose, fasting 97 mg/dL 70-100 Glucose, Fasting AT [facility]) blood urea nitrogen 19 mg/dL 7-18 Above high normal Blood Ure a Nitrogen HILDA ([facility]) sodium level 137 mEq/L 136-145 Sodium Level HILDA ([facility]) potassium serum 4.1 mEq/L 3.5-5.1 Potassium Serum ATHE NA ([facility]) glomerular filtration rate > 60.0 >60 Glomerula r Filtration Rate HILDA ([facility]) chloride level 103 mEq/L 98-107 Chloride Level HILDA ([facility]) anion gap 3 mEq/L 8-16 Below low normal Anion Gap HILDA ( [facility]) calcium level 9.3 mg/dL 8.5-10.1 Calcium Level HILDA ( [facility]) carbon dioxide level 31 mEq/L 21-32 Carbon Dioxide Level HILDA ([facility]) ID Date Data Source [id number] 04/29/2020 03:56:00 PM EDT [place] ([facility]) Name Value Range Interpretation Code Description Data Ellie rce(s) Supporting Document(s) AST/SGOT 13 U/L 7-37 AST/SGOT HILDA ([facility]) bilirubin,total 0.5 mg/dL 0.2-1.0 Bilirubin,total ATHE NA ([facility]) alkaline phosphatase 76 U/L 45-117 Alkaline Phosph atase HILDA ([facility]) ALT/SGPT 25 U/L 12-78 ALT/SGPT HILDA ([facility]) total protein 7.0 gm/dL 6.4-8.2 Total Protein HILDA ( [facility]) bilirubin,direct 0.2 mg/dL 0.0-0.2 Bilirubin,direct AT [facility] ([facility]) albumin/globulin ratio Albumin/globu wu Ratio HILDA ([facility]) albumin 4.0 gm/dL 3.2-5.2 Albumin HILDA ([facility]) ID Date Data Source [id number] 04/29/2020 03:56:00 PM EDT HILDA ([facility]) Name Value Range Interpretation Code Description Data Ellie rce(s) Supporting Document(s) mb/CK relative index < or =4 mb/CK Relative Index HILDA ([facility]) CK-mb value mass 1.1 NG/mL <3.6 CK-mb Value Mass AT [facility] ([facility]) CPK creatine phosphokinase 142 U/L 39-308 CPK Creat ine Phosphokinase HILDA ([facility]) troponin I < 0.02 < 0.10 Troponin I HILDA ([facility]) ID Date Data Source [id number] 04/29/2020 03:56:00 PM EDT HILDA ([facility]) Name Value Range Interpretation Code Description Data Ellie rce(s) Supporting Document(s) partial thromboplastin time 30.8 seconds 24.2-38.5 Partial Thromboplastin Time HILDA ([facility]) ID Date Data Source [id number] 04/29/2020 03:56:00 PM EDT HILDA ([facility]) Name Value Range Interpretation Code Description Data Ellie rce(s) Supporting Document(s) INR Inr HILDA ([facility]) prothrombin time 13.2 seconds 12.5-14.3 Prothrombin Time HILDA ([facility]) ID Date Data Source [id number] 04/29/2020 03:56:00 PM EDT HILDA ([facility]) Name Value Range Interpretation Code Description Data Ellie rce(s) Supporting Document(s) white blood count 6.3 10 4.0-10.0 White Blood Count HILDA ([facility]) hematocrit 45.6 % 42.0-52.0 Hematocrit HILDA ([facility]) hemoglobin 15.1 g/dL 13.5-17.5 Hemoglobin HILDA ([facility]) red blood count 5.45 10 4.30-6.10 Red Blood Count ATHE NA ([facility]) mean corpuscular HGB conc 33.1 g/dL 32.0-36.5 Mean Corpu scular HGB Conc HILDA ([facility]) mean corpuscular hemoglobin 27.7 pg 27.0-33.0 Mean Cor puscular Hemoglobin HILDA ([facility]) mean corpuscular volume 83.7 fL 80.0-96.0 Mean Corpusc ular Volume HILDA ([facility]) lymph % 33.6 % 24.0-44.0 Lymph % HILDA ([facility]) red cell distribution width 13.5 % 11.5-14.5 Red Cell Distribution Width HILDA ([facility]) platelet count, automated 230 10 150-450 Platelet C ount, Automated HILDA ([facility]) neutrophils % 53.2 % 36.0-66.0 Neutrophils % HILDA ( [facility]) eos % 2.7 % 0.0-3.0 Eos % HILDA ([facility]) baso % 0.6 % 0.0-1.0 Baso % HILDA ([facility]) mono % 9.6 % 2.0-8.0 Above high normal [place] % HILDA ([facility]) neutrophils # 3.4 10 1.5-8.5 Neutrophils # HILDA ( [facility]) nucleated red blood cell % 0.0 % 0-0 Nucleated Red Blood Cell % HILDA ([facility]) immature granulocyte % 0.3 % 0-3.0 Immature Gran ulocyte % HILDA ([facility]) baso # 0.0 10 0.0-0.2 Baso # HILDA ([facility]) mono # 0.6 10 0.0-0.8 [place] # HILDA ([facility]) eos # 0.2 10 0.0-0.5 Eos # HILDA ([facility]) lymph # 2.1 10 1.5-5.0 Lymph # HILDA ([facility]) ID Date Data Source [id number] 04/29/2020 03:56:00 PM EDT [place] ([facility]) Name Value Range Interpretation Code Description Data Ellie rce(s) Supporting Document(s) glucose, fasting 97 mg/dL 70-100 Glucose, Fasting AT [facility] ([facility]) glomerular filtration rate > 60.0 >60 Glomerula r Filtration Rate HILDA ([facility]) sodium level 137 mEq/L 136-145 Sodium Level HILDA ([facility]) creatinine for GFR 1.12 mg/dL 0.70-1.30 Creatinine for GF R [place] ([facility]) blood urea nitrogen 19 mg/dL 7-18 Above high normal Blood Ure a Nitrogen HILDA ([facility]) carbon dioxide level 31 mEq/L 21-32 Carbon Dioxide Level HILDA ([facility]) chloride level 103 mEq/L 98-107 Chloride Level HILDA ([facility]) potassium serum 4.1 mEq/L 3.5-5.1 Potassium Serum ATHE NA ([facility]) anion gap 3 mEq/L 8-16 Below low normal Anion Gap HILDA ( [facility]) calcium level 9.3 mg/dL 8.5-10.1 Calcium Level [place] ( [facility]) ID Date Data Source [id number] 04/29/2020 03:56:00 PM EDT HILDA ([facility]) Name Value Range Interpretation Code Description Data Ellie rce(s) Supporting Document(s) AST/SGOT 13 U/L 7-37 AST/SGOT HILDA ([facility]) alkaline phosphatase 76 U/L 45-117 Alkaline Phosph atase HILDA ([facility]) bilirubin,direct 0.2 mg/dL 0.0-0.2 Bilirubin,direct AT [facility] ([facility]) bilirubin,total 0.5 mg/dL 0.2-1.0 Bilirubin,total ATHE ([facility]) ALT/SGPT 25 U/L 12-78 ALT/SGPT HILDA ([facility]) albumin 4.0 gm/dL 3.2-5.2 Albumin HILDA ([facility]) total protein 7.0 gm/dL 6.4-8.2 Total Protein HILDA ( [facility]) albumin/globulin ratio Albumin/globu wu Ratio HILDA ([facility]) ID Date Data Source [id number] 04/29/2020 03:56:00 PM EDT HILDA ([facility]) Name Value Range Interpretation Code Description Data Ellie rce(s) Supporting Document(s) CPK creatine phosphokinase 142 U/L 39-308 CPK Creat ine Phosphokinase HILDA ([facility]) mb/CK relative index < or =4 mb/CK Relative Index HILDA ([facility]) troponin I < 0.02 < 0.10 Troponin I HILDA ([facility]) CK-mb value mass 1.1 NG/mL <3.6 CK-mb Value Mass AT [facility] ([facility]) ID Date Data Source [id number] 04/29/2020 03:56:00 PM EDT HILDA ([facility]) Name Value Range Interpretation Code Description Data Ellie rce(s) Supporting Document(s) partial thromboplastin time 30.8 seconds 24.2-38.5 Partial Thromboplastin Time HILDA ([facility]) ID Date Data Source [id number] 04/29/2020 03:56:00 PM EDT HILDA ([facility]) Name Value Range Interpretation Code Description Data Ellie rce(s) Supporting Document(s) prothrombin time 13.2 seconds 12.5-14.3 Prothrombin Time HILDA ([facility]) INR Inr HILDA ([facility]) ID Date Data Source [id number] 04/29/2020 03:56:00 PM EDT HILDA ([facility]) Name Value Range Interpretation Code Description Data Ellie rce(s) Supporting Document(s) white blood count 6.3 10 4.0-10.0 White Blood Count HILDA ([facility]) red blood count 5.45 10 4.30-6.10 Red Blood Count ATHE ([facility]) hematocrit 45.6 % 42.0-52.0 Hematocrit HILDA ([facility]) hemoglobin 15.1 g/dL 13.5-17.5 Hemoglobin HILDA ([facility]) mean corpuscular volume 83.7 fL 80.0-96.0 Mean Corpusc ular Volume HILDA ([facility]) mean corpuscular HGB conc 33.1 g/dL 32.0-36.5 Mean Corpu scular HGB Conc HILDA ([facility]) mean corpuscular hemoglobin 27.7 pg 27.0-33.0 Mean Cor puscular Hemoglobin HILDA ([facility]) platelet count, automated 230 10 150-450 Platelet C ount, Automated HILDA ([facility]) neutrophils % 53.2 % 36.0-66.0 Neutrophils % HILDA ( [facility]) red cell distribution width 13.5 % 11.5-14.5 Red Cell Distribution Width HILDA ([facility]) mono % 9.6 % 2.0-8.0 Above high normal [place] % HILDA ([facility]) eos % 2.7 % 0.0-3.0 Eos % HILDA ([facility]) lymph % 33.6 % 24.0-44.0 Lymph % HILDA ([facility]) immature granulocyte % 0.3 % 0-3.0 Immature Gran ulocyte % HILDA ([facility]) baso % 0.6 % 0.0-1.0 Baso % HILDA ([facility]) nucleated red blood cell % 0.0 % 0-0 Nucleated Red Blood Cell % HILDA ([facility]) mono # 0.6 10 0.0-0.8 [place] # [place] ([facility]) neutrophils # 3.4 10 1.5-8.5 Neutrophils # HILDA ( [facility]) eos # 0.2 10 0.0-0.5 Eos # HILDA ([facility]) lymph # 2.1 10 1.5-5.0 Lymph # HILDA ([facility]) baso # 0.0 10 0.0-0.2 Baso # HILDA ([facility]) ID Date Data Source [id number] 04/29/2020 03:56:00 PM EDT [place] ([facility]) Name Value Range Interpretation Code Description Data Ellie rce(s) Supporting Document(s) glucose, fasting 97 mg/dL 70-100 Glucose, Fasting AT [facility]) blood urea nitrogen 19 mg/dL 7-18 Above high normal Blood Ure a Nitrogen HILDA ([facility]) creatinine for GFR 1.12 mg/dL 0.70-1.30 Creatinine for GF R HILDA ([facility]) potassium serum 4.1 mEq/L 3.5-5.1 Potassium Serum ATHE NA ([facility]) glomerular filtration rate > 60.0 >60 Glomerula r Filtration Rate HILDA ([facility]) sodium level 137 mEq/L 136-145 Sodium Level HILDA ([facility]) chloride level 103 mEq/L 98-107 Chloride Level HILDA ([facility]) anion gap 3 mEq/L 8-16 Below low normal Anion Gap HILDA ( [facility]) calcium level 9.3 mg/dL 8.5-10.1 Calcium Level HILDA ( [facility]) carbon dioxide level 31 mEq/L 21-32 Carbon Dioxide Level H[place]DA ([facility]) ID Date Data Source [id number] 04/29/2020 03:56:00 PM EDT [place] ([facility]) Name Value Range Interpretation Code Description Data Ellie rce(s) Supporting Document(s) AST/SGOT 13 U/L 7-37 AST/SGOT [place] ([facility]) ALT/SGPT 25 U/L 12-78 ALT/SGPT [place] ([facility]) bilirubin,total 0.5 mg/dL 0.2-1.0 Bilirubin,total ATHE [facility]) bilirubin,direct 0.2 mg/dL 0.0-0.2 Bilirubin,direct AT [facility] ([facility]) alkaline phosphatase 76 U/L 45-117 Alkaline Phosph atase [place] ([facility]) albumin 4.0 gm/dL 3.2-5.2 Albumin H[place]DA ([facility]) albumin/globulin ratio Albumin/globu wu Ratio HILDA ([facility]) total protein 7.0 gm/dL 6.4-8.2 Total Protein [place] ( [facility]) ID Date Data Source [id number] 04/29/2020 03:56:00 PM EDT [place] ([facility]) Name Value Range Interpretation Code Description Data Ellie rce(s) Supporting Document(s) CK-mb value mass 1.1 NG/mL <3.6 CK-mb Value Mass AT [facility] ([facility]) CPK creatine phosphokinase 142 U/L 39-308 CPK Creat ine Phosphokinase [place]DA ([facility]) mb/CK relative index < or =4 mb/CK Relative Index [facility] ([facility]) troponin I < 0.02 < 0.10 Troponin I [place] ([facility]) ID Date Data Source [id number] 04/29/2020 03:56:00 PM EDT [place] ([facility]) Name Value Range Interpretation Code Description Data Ellie rce(s) Supporting Document(s) partial thromboplastin time 30.8 seconds 24.2-38.5 Partial Thromboplastin Time [place] ([facility]) ID Date Data Source [id number] 04/29/2020 03:56:00 PM EDT [place] ([facility]) Name Value Range Interpretation Code Description Data Ellie rce(s) Supporting Document(s) prothrombin time 13.2 seconds 12.5-14.3 Prothrombin Time [facility] ([facility]) INR Inr [facility]DA ([facility]) ID Date Data Source [id number] 04/29/2020 03:56:00 PM EDT [place] ([facility]) Name Value Range Interpretation Code Description Data Ellie rce(s) Supporting Document(s) white blood count 6.3 10 4.0-10.0 White Blood Count [place] ([facility]) red blood count 5.45 10 4.30-6.10 Red Blood Count ATHE ([facility]) hemoglobin 15.1 g/dL 13.5-17.5 Hemoglobin [place] ([facility]) hematocrit 45.6 % 42.0-52.0 Hematocrit [place] ([facility]) mean corpuscular HGB conc 33.1 g/dL 32.0-36.5 Mean Corpu scular HGB Conc [place] ([facility]) mean corpuscular hemoglobin 27.7 pg 27.0-33.0 Mean Cor puscular Hemoglobin [facility]DA ([facility]) mean corpuscular volume 83.7 fL 80.0-96.0 Mean Corpusc ular Volume [place] ([facility]) platelet count, automated 230 10 150-450 Platelet C ount, Automated [place] ([facility]) red cell distribution width 13.5 % 11.5-14.5 Red Cell Distribution Width [place] ([facility]) neutrophils % 53.2 % 36.0-66.0 Neutrophils % [facility] ( [facility]) lymph % 33.6 % 24.0-44.0 Lymph % [facility]DA ([facility]) eos % 2.7 % 0.0-3.0 Eos % [facility] ([facility]) mono % 9.6 % 2.0-8.0 Above high normal [place] % [facility]DA ([facility]) baso % 0.6 % 0.0-1.0 Baso % [facility] ([facility]) nucleated red blood cell % 0.0 % 0-0 Nucleated Red Blood Cell % [place] ([facility]) immature granulocyte % 0.3 % 0-3.0 Immature Gran ulocyte % [place] ([facility]) mono # 0.6 10 0.0-0.8 [place] # [place] ([facility]) neutrophils # 3.4 10 1.5-8.5 Neutrophils # [place] ( [facility]) lymph # 2.1 10 1.5-5.0 Lymph # [facility]DA ([facility]) eos # 0.2 10 0.0-0.5 Eos # [facility] ([facility]) baso # 0.0 10 0.0-0.2 Baso # [facility] ([facility]) ID Date Data Source [id number] 04/29/2020 03:56:00 PM EDT [place] ([facility]) Name Value Range Interpretation Code Description Data Ellie rce(s) Supporting Document(s) glucose, fasting 97 mg/dL 70-100 Glucose, Fasting AT [facility] ([facility]) blood urea nitrogen 19 mg/dL 7-18 Above high normal Blood Ure a Nitrogen [place] ([facility]) glomerular filtration rate > 60.0 >60 Glomerula r Filtration Rate [place] ([facility]) creatinine for GFR 1.12 mg/dL 0.70-1.30 Creatinine for GF R [place] ([facility]) sodium level 137 mEq/L 136-145 Sodium Level [facility]DA ([facility]) chloride level 103 mEq/L 98-107 Chloride Level [place] ([facility]) potassium serum 4.1 mEq/L 3.5-5.1 Potassium Serum ATHE NA ([facility]) anion gap 3 mEq/L 8-16 Below low normal Anion Gap H[place]DA ( [facility]) calcium level 9.3 mg/dL 8.5-10.1 Calcium Level [place] ( [facility]) carbon dioxide level 31 mEq/L 21-32 Carbon Dioxide Level [place] ([facility]) ID Date Data Source [id number] 04/29/2020 03:56:00 PM EDT [place] ([facility]) Name Value Range Interpretation Code Description Data Ellie rce(s) Supporting Document(s) AST/SGOT 13 U/L 7-37 AST/SGOT [place] ([facility]) ALT/SGPT 25 U/L 12-78 ALT/SGPT [place] ([facility]) alkaline phosphatase 76 U/L 45-117 Alkaline Phosph atase [place] ([facility]) bilirubin,total 0.5 mg/dL 0.2-1.0 Bilirubin,total ATHE ([facility]) bilirubin,direct 0.2 mg/dL 0.0-0.2 Bilirubin,direct AT [facility]) albumin 4.0 gm/dL 3.2-5.2 Albumin [place] ([facility]) total protein 7.0 gm/dL 6.4-8.2 Total Protein [place] ( [facility]) albumin/globulin ratio Albumin/globu wu Ratio [facility] ([facility]) ID Date Data Source [id number] 03/23/2020 12:00:00 AM EST [facility] Name Value Range Interpretation Code Description Data Ellie rce(s) Supporting Document(s) SARS-CoV2 Rapid Antigen Negative [facility] This lab was ordered by [facility] and reported by [facility] ID Date Data Source [id number] 01/09/2020 03:51:00 PM EST [place] ([facility]) Name Value Range Interpretation Code Description Data Ellie rce(s) Supporting Document(s) C reactive protein quantitativ < 0.30 0.00-0.30 C Reactive Protein Quantitativ [place] ([facility]) ID Date Data Source [id number] 01/09/2020 03:51:00 PM EST [place] ([facility]) Name Value Range Interpretation Code Description Data Ellie rce(s) Supporting Document(s) cholesterol level 278 mg/dL <200 Above high normal Cholesterol Level [place] ([facility]) triglycerides level 314 mg/dL <150 Above high normal Triglycer ides Level [place]DA ([facility]) cholesterol risk ratio <5 Above high normal Choles terol Risk Ratio H[place]DA ([facility]) non-HDL-C 240 mg/dL Non-hdl-c [facility] ([facility]) Cholesterol in LDL [Mass/volume] in Serum or Plasma 177 mg/dL <100 Above high normal LDL Cholesterol [facility] ([facility]) HDL cholesterol 38 mg/dL >40 Below low normal HDL Cholestero l [place] ([facility]) ID Date Data Source [id number] 01/09/2020 03:51:00 PM EST [place] ([facility]) Name Value Range Interpretation Code Description Data Ellie rce(s) Supporting Document(s) C reactive protein quantitativ < 0.30 0.00-0.30 C Reactive Protein Quantitativ [place] ([facility]) ID Date Data Source [id number] 01/09/2020 03:51:00 PM EST [place] ([facility]) Name Value Range Interpretation Code Description Data Ellie rce(s) Supporting Document(s) cholesterol level 278 mg/dL <200 Above high normal Cholesterol Level [facility]DA ([facility]) triglycerides level 314 mg/dL <150 Above high normal Triglycer ides Level HILDA ([facility]) non-HDL-C 240 mg/dL Non-hdl-c [facility]DA ([facility]) cholesterol risk ratio <5 Above high normal Choles terol Risk Ratio H[facility]DA ([facility]) HDL cholesterol 38 mg/dL >40 Below low normal HDL Cholestero l [facility]DA ([facility]) Cholesterol in LDL [Mass/volume] in Serum or Plasma 177 mg/dL <100 Above high normal LDL Cholesterol [facility] ([facility]) ID Date Data Source [id number] 01/09/2020 03:51:00 PM EST [place] ([facility]) Name Value Range Interpretation Code Description Data Ellie rce(s) Supporting Document(s) C reactive protein quantitativ < 0.30 0.00-0.30 C Reactive Protein Quantitativ [facility]DA ([facility]) ID Date Data Source [id number] 01/09/2020 03:51:00 PM EST [place] ([facility]) Name Value Range Interpretation Code Description Data Ellie rce(s) Supporting Document(s) cholesterol level 278 mg/dL <200 Above high normal Cholesterol Level [place] ([facility]) triglycerides level 314 mg/dL <150 Above high normal Triglycer ides Level H[place]DA ([facility]) HDL cholesterol 38 mg/dL >40 Below low normal HDL Cholestero l [facility]DA ([facility]) Cholesterol in LDL [Mass/volume] in Serum or Plasma 177 mg/dL <100 Above high normal LDL Cholesterol [facility] ([facility]) cholesterol risk ratio <5 Above high normal Choles terol Risk Ratio H[place]DA ([facility]) non-HDL-C 240 mg/dL Non-hdl-c [facility]DA ([facility]) ID Date Data Source [id number] 01/09/2020 03:51:00 PM EST [place] ([facility]) Name Value Range Interpretation Code Description Data Ellie rce(s) Supporting Document(s) C reactive protein quantitativ < 0.30 0.00-0.30 C Reactive Protein Quantitativ [place]DA ([facility]) ID Date Data Source [id number] 01/09/2020 03:51:00 PM EST [place] ([facility]) Name Value Range Interpretation Code Description Data Ellie rce(s) Supporting Document(s) HDL cholesterol 38 mg/dL >40 Below low normal HDL Cholestero l HILDA ([facility]) triglycerides level 314 mg/dL <150 Above high normal Triglycer ides Level HILDA ([facility]) cholesterol level 278 mg/dL <200 Above high normal Cholesterol Level [place]AD ([facility]) non-HDL-C 240 mg/dL Non-hdl-c H[facility]DA ([facility]) cholesterol risk ratio <5 Above high normal Choles terol Risk Ratio H[place]DA ([facility]) Cholesterol in LDL [Mass/volume] in Serum or Plasma 177 mg/dL <100 Above high normal LDL Cholesterol [facility] ([facility]) ID Date Data Source [id number] 01/09/2020 03:51:00 PM EST [place] ([facility]) Name Value Range Interpretation Code Description Data Ellie rce(s) Supporting Document(s) C reactive protein quantitativ < 0.30 0.00-0.30 C Reactive Protein Quantitativ [place] ([facility]) ID Date Data Source [id number] 01/09/2020 03:51:00 PM EST [place] ([facility]) Name Value Range Interpretation Code Description Data Ellie rce(s) Supporting Document(s) triglycerides level 314 mg/dL <150 Above high normal Triglycer ides Level H[place]DA ([facility]) cholesterol level 278 mg/dL <200 Above high normal Cholesterol Level H[place]DA ([facility]) HDL cholesterol 38 mg/dL >40 Below low normal HDL Cholestero l H[place]DA ([facility]) non-HDL-C 240 mg/dL Non-hdl-c [facility] ([facility]) Cholesterol in LDL [Mass/volume] in Serum or Plasma 177 mg/dL <100 Above high normal LDL Cholesterol H[facility]DA ([facility]) cholesterol risk ratio <5 Above high normal Choles terol Risk Ratio [facility]DA ([facility]) ID Date Data Source [id number] 01/09/2020 03:51:00 PM EST [place] ([facility]) Name Value Range Interpretation Code Description Data Ellie rce(s) Supporting Document(s) C reactive protein quantitativ < 0.30 0.00-0.30 C Reactive Protein Quantitativ [facility] ([facility]) ID Date Data Source [id number] 01/09/2020 03:51:00 PM EST [place] ([facility]) Name Value Range Interpretation Code Description Data Ellie rce(s) Supporting Document(s) triglycerides level 314 mg/dL <150 Above high normal Triglycer ides Level H[place]DA ([facility]) cholesterol level 278 mg/dL <200 Above high normal Cholesterol Level H[place]DA ([facility]) HDL cholesterol 38 mg/dL >40 Below low normal HDL Cholestero l HILDA ([facility]) non-HDL-C 240 mg/dL Non-hdl-c [facility] ([facility]) Cholesterol in LDL [Mass/volume] in Serum or Plasma 177 mg/dL <100 Above high normal LDL Cholesterol [facility] ([facility]) cholesterol risk ratio <5 Above high normal Choles terol Risk Ratio [facility]DA ([facility]) ID Date Data Source [id number] 01/09/2020 03:51:00 PM EST [place] ([facility]) Name Value Range Interpretation Code Description Data Ellie rce(s) Supporting Document(s) C reactive protein quantitativ < 0.30 0.00-0.30 C Reactive Protein Quantitativ [facility]DA ([facility]) ID Date Data Source [id number] 01/09/2020 03:51:00 PM EST [place] ([facility]) Name Value Range Interpretation Code Description Data Ellie rce(s) Supporting Document(s) cholesterol level 278 mg/dL <200 Above high normal Cholesterol Level H[place]DA ([facility]) triglycerides level 314 mg/dL <150 Above high normal Triglycer ides Level H[place]DA ([facility]) HDL cholesterol 38 mg/dL >40 Below low normal HDL Cholestero l [facility]DA ([facility]) Cholesterol in LDL [Mass/volume] in Serum or Plasma 177 mg/dL <100 Above high normal LDL Cholesterol [facility] ([facility]) non-HDL-C 240 mg/dL Non-hdl-c [facility] ([facility]) cholesterol risk ratio <5 Above high normal Choles terol Risk Ratio [facility] ([facility]) ID Date Data Source [id number] 01/09/2020 03:51:00 PM EST [place] ([facility]) Name Value Range Interpretation Code Description Data Ellie rce(s) Supporting Document(s) C reactive protein quantitativ < 0.30 0.00-0.30 C Reactive Protein Quantitativ [place] ([facility]) ID Date Data Source [id number] 01/09/2020 03:51:00 PM EST [place] ([facility]) Name Value Range Interpretation Code Description Data Ellie rce(s) Supporting Document(s) triglycerides level 314 mg/dL <150 Above high normal Triglycer ides Level [place]DA ([facility]) cholesterol level 278 mg/dL <200 Above high normal Cholesterol Level [facility] ([facility]) HDL cholesterol 38 mg/dL >40 Below low normal HDL Cholestero l [facility]DA ([facility]) Cholesterol in LDL [Mass/volume] in Serum or Plasma 177 mg/dL <100 Above high normal LDL Cholesterol H[facility]DA ([facility]) cholesterol risk ratio <5 Above high normal Choles terol Risk Ratio H[place]DA ([facility]) non-HDL-C 240 mg/dL Non-hdl-c [facility] ([facility]) ID Date Data Source [id number] 01/09/2020 03:51:00 PM EST [place] ([facility]) Name Value Range Interpretation Code Description Data Ellie rce(s) Supporting Document(s) C reactive protein quantitativ < 0.30 0.00-0.30 C Reactive Protein Quantitativ [place] ([facility]) ID Date Data Source [id number] 01/09/2020 03:51:00 PM EST [place] ([facility]) Name Value Range Interpretation Code Description Data Ellie rce(s) Supporting Document(s) cholesterol level 278 mg/dL <200 Above high normal Cholesterol Level [place]DA ([facility]) triglycerides level 314 mg/dL <150 Above high normal Triglycer ides Level HILDA ([facility]) HDL cholesterol 38 mg/dL >40 Below low normal HDL Cholestero l [place] ([facility]) Cholesterol in LDL [Mass/volume] in Serum or Plasma 177 mg/dL <100 Above high normal LDL Cholesterol H[facility]DA ([facility]) cholesterol risk ratio <5 Above high normal Choles terol Risk Ratio H[place]DA ([facility]) non-HDL-C 240 mg/dL Non-hdl-c [facility] ([facility]) ID Date Data Source [id number] 01/09/2020 03:51:00 PM EST [place] ([facility]) Name Value Range Interpretation Code Description Data Ellie rce(s) Supporting Document(s) C reactive protein quantitativ < 0.30 0.00-0.30 C Reactive Protein Quantitativ [place] ([facility]) ID Date Data Source [id number] 01/09/2020 03:51:00 PM EST [place] ([facility]) Name Value Range Interpretation Code Description Data Ellie rce(s) Supporting Document(s) cholesterol level 278 mg/dL <200 Above high normal Cholesterol Level H[place]DA ([facility]) Cholesterol in LDL [Mass/volume] in Serum or Plasma 177 mg/dL <100 Above high normal LDL Cholesterol [facility]DA ([facility]) HDL cholesterol 38 mg/dL >40 Below low normal HDL Cholestero l [facility]DA ([facility]) triglycerides level 314 mg/dL <150 Above high normal Triglycer ides Level H[place]DA ([facility]) non-HDL-C 240 mg/dL Non-hdl-c [facility] ([facility]) cholesterol risk ratio <5 Above high normal Choles terol Risk Ratio [facility]DA ([facility]) ID Date Data Source [id number] 01/09/2020 03:51:00 PM EST [place] ([facility]) Name Value Range Interpretation Code Description Data Ellie rce(s) Supporting Document(s) C reactive protein quantitativ < 0.30 0.00-0.30 C Reactive Protein Quantitativ [facility] ([facility]) ID Date Data Source [id number] 01/09/2020 03:51:00 PM EST [place] ([facility]) Name Value Range Interpretation Code Description Data Ellie rce(s) Supporting Document(s) HDL cholesterol 38 mg/dL >40 Below low normal HDL Cholestero l HILDA ([facility]) triglycerides level 314 mg/dL <150 Above high normal Triglycer ides Level HILDA ([facility]) cholesterol level 278 mg/dL <200 Above high normal Cholesterol Level H[facility]DA ([facility]) Cholesterol in LDL [Mass/volume] in Serum or Plasma 177 mg/dL <100 Above high normal LDL Cholesterol [facility] ([facility]) non-HDL-C 240 mg/dL Non-hdl-c [facility] ([facility]) cholesterol risk ratio <5 Above high normal Choles terol Risk Ratio [facility]DA ([facility]) ID Date Data Source [id number] 01/09/2020 03:51:00 PM EST [place] ([facility]) Name Value Range Interpretation Code Description Data Ellie rce(s) Supporting Document(s) C reactive protein quantitativ < 0.30 0.00-0.30 C Reactive Protein Quantitativ [facility]DA ([facility]) ID Date Data Source [id number] 01/09/2020 03:51:00 PM EST [place] ([facility]) Name Value Range Interpretation Code Description Data Ellie rce(s) Supporting Document(s) triglycerides level 314 mg/dL <150 Above high normal Triglycer ides Level HILDA ([facility]) HDL cholesterol 38 mg/dL >40 Below low normal HDL Cholestero l [facility]ILDA ([facility]) cholesterol level 278 mg/dL <200 Above high normal Cholesterol Level [facility]DA ([facility]) Cholesterol in LDL [Mass/volume] in Serum or Plasma 177 mg/dL <100 Above high normal LDL Cholesterol [facility] ([facility]) non-HDL-C 240 mg/dL Non-hdl-c [facility] ([facility]) cholesterol risk ratio <5 Above high normal Choles terol Risk Ratio [place] ([facility]) ID Date Data Source [id number] 01/09/2020 03:51:00 PM EST [facility] ([facility]) Name Value Range Interpretation Code Description Data Ellie rce(s) Supporting Document(s) C reactive protein [Mass/volume] in Serum or Plasma by High sensitivity method Laboratory test result 0.00-0.30 [facility] ([facility]) ID Date Data Source [id number] 01/09/2020 03:51:00 PM EST [facility] ([facility]) Name Value Range Interpretation Code Description Data Ellie rce(s) Supporting Document(s) Triglycerides Level 314 mg/dL [facility] ([facility]) HDL Cholesterol 38 mg/dL [facility] ([facility]) Cholesterol Level 278 mg/dL [facility] ([facility]) Cholesterol Risk Ratio 7.315 [facility] ([facility] [facility]) LDL Cholesterol 177 mg/dL [facility] ([facility]) Non-HDL-C 240 mg/dL [facility] ([facility]) ID Date Data Source [id number] 01/09/2020 03:51:00 PM EST HILDA ([facility]) Name Value Range Interpretation Code Description Data Ellie rce(s) Supporting Document(s) C reactive protein quantitativ < 0.30 0.00-0.30 C Reactive Protein Quantitativ HILDA ([facility]) ID Date Data Source [id number] 01/09/2020 03:51:00 PM EST HILDA ([facility]) Name Value Range Interpretation Code Description Data Ellie rce(s) Supporting Document(s) triglycerides level 314 mg/dL <150 Above high normal Triglycer ides Level HILDA ([facility]) cholesterol level 278 mg/dL <200 Above high normal Cholesterol Level HILDA ([facility]) HDL cholesterol 38 mg/dL >40 Below low normal HDL Cholestero l HILDA ([facility]) non-HDL-C 240 mg/dL Non-hdl-c HILDA ([facility]) Cholesterol in LDL [Mass/volume] in Serum or Plasma 177 mg/dL <100 Above high normal LDL Cholesterol [facility] ([facility]) cholesterol risk ratio <5 Above high normal Choles terol Risk Ratio HILDA ([facility]) ID Date Data Source [id number] 01/09/2020 03:51:00 PM EST HILDA ([facility]) Name Value Range Interpretation Code Description Data Ellie rce(s) Supporting Document(s) C reactive protein quantitativ < 0.30 0.00-0.30 C Reactive Protein Quantitativ HILDA ([facility]) ID Date Data Source [id number] 01/09/2020 03:51:00 PM EST HILDA ([facility]) Name Value Range Interpretation Code Description Data Ellie rce(s) Supporting Document(s) cholesterol level 278 mg/dL <200 Above high normal Cholesterol Level HILDA ([facility]) triglycerides level 314 mg/dL <150 Above high normal Triglycer ides Level HILDA ([facility]) non-HDL-C 240 mg/dL Non-hdl-c HILDA ([facility]) Cholesterol in LDL [Mass/volume] in Serum or Plasma 177 mg/dL <100 Above high normal LDL Cholesterol H[facility] ([facility]) HDL cholesterol 38 mg/dL >40 Below low normal HDL Cholestero l HILDA ([facility]) cholesterol risk ratio <5 Above high normal Choles terol Risk Ratio HILDA ([facility]) ID Date Data Source [id number] 01/09/2020 03:51:00 PM EST HILDA ([facility]) Name Value Range Interpretation Code Description Data Ellie rce(s) Supporting Document(s) C reactive protein quantitativ < 0.30 0.00-0.30 C Reactive Protein Quantitativ HILDA ([facility]) ID Date Data Source [id number] 01/09/2020 03:51:00 PM EST HILDA ([facility]) Name Value Range Interpretation Code Description Data Ellie rce(s) Supporting Document(s) triglycerides level 314 mg/dL <150 Above high normal Triglycer ides Level HILDA ([facility]) cholesterol level 278 mg/dL <200 Above high normal Cholesterol Level HILDA ([facility]) HDL cholesterol 38 mg/dL >40 Below low normal HDL Cholestero l HILDA ([facility]) cholesterol risk ratio <5 Above high normal Choles terol Risk Ratio HILDA ([facility]) Cholesterol in LDL [Mass/volume] in Serum or Plasma 177 mg/dL <100 Above high normal LDL Cholesterol [facility] ([facility]) non-HDL-C 240 mg/dL Non-hdl-c HILDA ([facility]) ID Date Data Source [id number] 01/09/2020 03:51:00 PM EST HILDA ([facility]) Name Value Range Interpretation Code Description Data Ellie rce(s) Supporting Document(s) C reactive protein quantitativ < 0.30 0.00-0.30 C Reactive Protein Quantitativ HILDA ([facility]) ID Date Data Source [id number] 01/09/2020 03:51:00 PM EST HILDA ([facility]) Name Value Range Interpretation Code Description Data Ellie rce(s) Supporting Document(s) triglycerides level 314 mg/dL <150 Above high normal Triglycer ides Level HILDA ([facility]) cholesterol level 278 mg/dL <200 Above high normal Cholesterol Level HILDA ([facility]) non-HDL-C 240 mg/dL Non-hdl-c HILDA ([facility]) HDL cholesterol 38 mg/dL >40 Below low normal HDL Cholestero l HILDA ([facility]) Cholesterol in LDL [Mass/volume] in Serum or Plasma 177 mg/dL <100 Above high normal LDL Cholesterol HILDA ([facility]) cholesterol risk ratio <5 Above high normal Choles terol Risk Ratio HILDA ([facility]) ID Date Data Source [id number] 01/09/2020 03:51:00 PM EST HILDA ([facility]) Name Value Range Interpretation Code Description Data Ellie rce(s) Supporting Document(s) C reactive protein quantitativ < 0.30 0.00-0.30 C Reactive Protein Quantitativ HILDA ([facility]) ID Date Data Source [id number] 01/09/2020 03:51:00 PM EST HILDA ([facility]) Name Value Range Interpretation Code Description Data Ellie rce(s) Supporting Document(s) cholesterol level 278 mg/dL <200 Above high normal Cholesterol Level HILDA ([facility]) triglycerides level 314 mg/dL <150 Above high normal Triglycer ides Level HILDA ([facility]) Cholesterol in LDL [Mass/volume] in Serum or Plasma 177 mg/dL <100 Above high normal LDL Cholesterol HILDA ([facility]) cholesterol risk ratio <5 Above high normal Choles terol Risk Ratio HILDA ([facility]) HDL cholesterol 38 mg/dL >40 Below low normal HDL Cholestero l HILDA ([facility]) non-HDL-C 240 mg/dL Non-hdl-c HILDA ([facility]) ID Date Data Source [id number] 01/09/2020 03:51:00 PM EST HILDA ([facility]) Name Value Range Interpretation Code Description Data Ellie rce(s) Supporting Document(s) C reactive protein quantitativ < 0.30 0.00-0.30 C Reactive Protein Quantitativ HILDA ([facility]) ID Date Data Source [id number] 01/09/2020 03:51:00 PM EST HILDA ([facility]) Name Value Range Interpretation Code Description Data Ellie rce(s) Supporting Document(s) cholesterol level 278 mg/dL <200 Above high normal Cholesterol Level HILDA ([facility]) HDL cholesterol 38 mg/dL >40 Below low normal HDL Cholestero l HILDA ([facility]) triglycerides level 314 mg/dL <150 Above high normal Triglycer ides Level HILDA ([facility]) non-HDL-C 240 mg/dL Non-hdl-c HILDA ([facility]) cholesterol risk ratio <5 Above high normal Choles terol Risk Ratio HILDA ([facility]) Cholesterol in LDL [Mass/volume] in Serum or Plasma 177 mg/dL <100 Above high normal LDL Cholesterol [facility] ([facility]) ID Date Data Source [id number] 01/09/2020 03:51:00 PM EST HILDA ([facility]) Name Value Range Interpretation Code Description Data Ellie rce(s) Supporting Document(s) C reactive protein quantitativ < 0.30 0.00-0.30 C Reactive Protein Quantitativ HILDA ([facility]) ID Date Data Source [id number] 01/09/2020 03:51:00 PM EST HILDA ([facility]) Name Value Range Interpretation Code Description Data Ellie rce(s) Supporting Document(s) triglycerides level 314 mg/dL <150 Above high normal Triglycer ides Level HILDA ([facility]) cholesterol level 278 mg/dL <200 Above high normal Cholesterol Level HILDA ([facility]) Cholesterol in LDL [Mass/volume] in Serum or Plasma 177 mg/dL <100 Above high normal LDL Cholesterol HILDA ([facility]) non-HDL-C 240 mg/dL Non-hdl-c HILDA ([facility]) HDL cholesterol 38 mg/dL >40 Below low normal HDL Cholestero l HILDA ([facility]) cholesterol risk ratio <5 Above high normal Choles terol Risk Ratio HILDA ([facility]) ID Date Data Source [id number] 01/09/2020 03:51:00 PM EST HILDA ([facility]) Name Value Range Interpretation Code Description Data Ellie rce(s) Supporting Document(s) C reactive protein quantitativ < 0.30 0.00-0.30 C Reactive Protein Quantitativ HILDA ([facility]) ID Date Data Source [id number] 01/09/2020 03:51:00 PM EST HILDA ([facility]) Name Value Range Interpretation Code Description Data Ellie rce(s) Supporting Document(s) triglycerides level 314 mg/dL <150 Above high normal Triglycer ides Level HILDA ([facility]) HDL cholesterol 38 mg/dL >40 Below low normal HDL Cholestero l HILDA ([facility]) non-HDL-C 240 mg/dL Non-hdl-c HILDA ([facility]) Cholesterol in LDL [Mass/volume] in Serum or Plasma 177 mg/dL <100 Above high normal LDL Cholesterol [facility] ([facility]) cholesterol level 278 mg/dL <200 Above high normal Cholesterol Level HILDA ([facility]) cholesterol risk ratio <5 Above high normal Choles terol Risk Ratio HILDA ([facility]) ID Date Data Source [id number] 01/09/2020 03:51:00 PM EST HILDA ([facility]) Name Value Range Interpretation Code Description Data Ellie rce(s) Supporting Document(s) C reactive protein quantitativ < 0.30 0.00-0.30 C Reactive Protein Quantitativ HILDA ([facility]) ID Date Data Source [id number] 01/09/2020 03:51:00 PM EST HILDA ([facility]) Name Value Range Interpretation Code Description Data Ellie rce(s) Supporting Document(s) triglycerides level 314 mg/dL <150 Above high normal Triglycer ides Level HILDA ([facility]) HDL cholesterol 38 mg/dL >40 Below low normal HDL Cholestero l HILDA ([facility]) Cholesterol in LDL [Mass/volume] in Serum or Plasma 177 mg/dL <100 Above high normal LDL Cholesterol HILDA ([facility]) cholesterol level 278 mg/dL <200 Above high normal Cholesterol Level HILDA ([facility]) non-HDL-C 240 mg/dL Non-hdl-c HILDA ([facility]) cholesterol risk ratio <5 Above high normal Choles terol Risk Ratio HILDA ([facility]) ID Date Data Source [id number] 01/09/2020 03:51:00 PM EST HILDA ([facility]) Name Value Range Interpretation Code Description Data Ellie rce(s) Supporting Document(s) C reactive protein quantitativ < 0.30 0.00-0.30 C Reactive Protein Quantitativ HILDA ([facility]) ID Date Data Source [id number] 01/09/2020 03:51:00 PM EST HILDA ([facility]) Name Value Range Interpretation Code Description Data Ellie rce(s) Supporting Document(s) cholesterol level 278 mg/dL <200 Above high normal Cholesterol Level HILDA ([facility]) triglycerides level 314 mg/dL <150 Above high normal Triglycer ides Level HILDA ([facility]) Cholesterol in LDL [Mass/volume] in Serum or Plasma 177 mg/dL <100 Above high normal LDL Cholesterol HILDA ([facility]) non-HDL-C 240 mg/dL Non-hdl-c HILDA ([facility]) cholesterol risk ratio <5 Above high normal Choles terol Risk Ratio HILDA ([facility]) HDL cholesterol 38 mg/dL >40 Below low normal HDL Cholestero l HILDA ([facility]) ID Date Data Source [id number] 01/09/2020 03:51:00 PM EST HILDA ([facility]) Name Value Range Interpretation Code Description Data Ellie rce(s) Supporting Document(s) C reactive protein quantitativ < 0.30 0.00-0.30 C Reactive Protein Quantitativ HILDA ([facility]) ID Date Data Source [id number] 01/09/2020 03:51:00 PM EST HILDA ([facility]) Name Value Range Interpretation Code Description Data Ellie rce(s) Supporting Document(s) triglycerides level 314 mg/dL <150 Above high normal Triglycer ides Level HILDA ([facility]) Cholesterol in LDL [Mass/volume] in Serum or Plasma 177 mg/dL <100 Above high normal LDL Cholesterol [facility] ([facility]) HDL cholesterol 38 mg/dL >40 Below low normal HDL Cholestero l HILDA ([facility]) non-HDL-C 240 mg/dL Non-hdl-c HILDA ([facility]) cholesterol level 278 mg/dL <200 Above high normal Cholesterol Level HILDA ([facility]) cholesterol risk ratio <5 Above high normal Choles terol Risk Ratio HILDA ([facility]) ID Date Data Source [id number] 01/09/2020 03:51:00 PM EST HILDA ([facility]) Name Value Range Interpretation Code Description Data Ellie rce(s) Supporting Document(s) C reactive protein quantitativ < 0.30 0.00-0.30 C Reactive Protein Quantitativ HILDA ([facility]) ID Date Data Source [id number] 01/09/2020 03:51:00 PM EST HLIDA ([facility]) Name Value Range Interpretation Code Description Data Ellie rce(s) Supporting Document(s) HDL cholesterol 38 mg/dL >40 Below low normal HDL Cholestero l HILDA ([facility]) cholesterol level 278 mg/dL <200 Above high normal Cholesterol Level HILDA ([facility]) triglycerides level 314 mg/dL <150 Above high normal Triglycer ides Level HILDA ([facility]) cholesterol risk ratio <5 Above high normal Choles terol Risk Ratio HILDA ([facility]) Cholesterol in LDL [Mass/volume] in Serum or Plasma 177 mg/dL <100 Above high normal LDL Cholesterol [facility] ([facility]) non-HDL-C 240 mg/dL Non-hdl-c HILDA ([facility]) ID Date Data Source [id number] 01/09/2020 03:51:00 PM EST HILDA ([facility]) Name Value Range Interpretation Code Description Data Ellie rce(s) Supporting Document(s) C reactive protein quantitativ < 0.30 0.00-0.30 C Reactive Protein Quantitativ HILDA ([facility]) ID Date Data Source [id number] 01/09/2020 03:51:00 PM EST HILDA ([facility]) Name Value Range Interpretation Code Description Data Ellie rce(s) Supporting Document(s) cholesterol level 278 mg/dL <200 Above high normal Cholesterol Level HILDA ([facility]) triglycerides level 314 mg/dL <150 Above high normal Triglycer ides Level HILDA ([facility]) Cholesterol in LDL [Mass/volume] in Serum or Plasma 177 mg/dL <100 Above high normal LDL Cholesterol [facility] ([facility]) non-HDL-C 240 mg/dL Non-hdl-c HILDA ([facility]) cholesterol risk ratio <5 Above high normal Choles terol Risk Ratio HILDA ([facility]) HDL cholesterol 38 mg/dL >40 Below low normal HDL Cholestero l HILDA ([facility]) ID Date Data Source [id number] 01/09/2020 03:51:00 PM EST HILDA ([facility]) Name Value Range Interpretation Code Description Data Ellie rce(s) Supporting Document(s) C reactive protein quantitativ < 0.30 0.00-0.30 C Reactive Protein Quantitativ HILDA ([facility]) ID Date Data Source [id number] 01/09/2020 03:51:00 PM EST HILDA ([facility]) Name Value Range Interpretation Code Description Data Ellie rce(s) Supporting Document(s) triglycerides level 314 mg/dL <150 Above high normal Triglycer ides Level HILDA ([facility]) cholesterol level 278 mg/dL <200 Above high normal Cholesterol Level HILDA ([facility]) HDL cholesterol 38 mg/dL >40 Below low normal HDL Cholestero l HILDA ([facility]) non-HDL-C 240 mg/dL Non-hdl-c HILDA ([facility]) Cholesterol in LDL [Mass/volume] in Serum or Plasma 177 mg/dL <100 Above high normal LDL Cholesterol [facility] ([facility]) cholesterol risk ratio <5 Above high normal Choles terol Risk Ratio HILDA ([facility]) ID Date Data Source [id number] 01/09/2020 03:51:00 PM EST HILDA ([facility]) Name Value Range Interpretation Code Description Data Ellie rce(s) Supporting Document(s) C reactive protein quantitativ < 0.30 0.00-0.30 C Reactive Protein Quantitativ HILDA ([facility]) ID Date Data Source [id number] 01/09/2020 03:51:00 PM EST HILDA ([facility]) Name Value Range Interpretation Code Description Data Ellie rce(s) Supporting Document(s) triglycerides level 314 mg/dL <150 Above high normal Triglycer ides Level HILDA ([facility]) HDL cholesterol 38 mg/dL >40 Below low normal HDL Cholestero l HILDA ([facility]) cholesterol level 278 mg/dL <200 Above high normal Cholesterol Level HILDA ([facility]) cholesterol risk ratio <5 Above high normal Choles terol Risk Ratio HILDA ([facility]) non-HDL-C 240 mg/dL Non-hdl-c HILDA ([facility]) Cholesterol in LDL [Mass/volume] in Serum or Plasma 177 mg/dL <100 Above high normal LDL Cholesterol [facility] ([facility]) ID Date Data Source [id number] 01/09/2020 03:51:00 PM EST HILDA ([facility]) Name Value Range Interpretation Code Description Data Ellie rce(s) Supporting Document(s) C reactive protein quantitativ < 0.30 0.00-0.30 C Reactive Protein Quantitativ HILDA ([facility]) ID Date Data Source [id number] 01/09/2020 03:51:00 PM EST HILDA ([facility]) Name Value Range Interpretation Code Description Data Ellie rce(s) Supporting Document(s) cholesterol level 278 mg/dL <200 Above high normal Cholesterol Level HILDA ([facility]) triglycerides level 314 mg/dL <150 Above high normal Triglycer ides Level HILDA ([facility]) cholesterol risk ratio <5 Above high normal Choles terol Risk Ratio HILDA ([facility]) non-HDL-C 240 mg/dL Non-hdl-c HILDA ([facility]) HDL cholesterol 38 mg/dL >40 Below low normal HDL Cholestero l HILDA ([facility]) Cholesterol in LDL [Mass/volume] in Serum or Plasma 177 mg/dL <100 Above high normal LDL Cholesterol HILDA ([facility]) ID Date Data Source [id number] 01/09/2020 03:51:00 PM EST HILDA ([facility]) Name Value Range Interpretation Code Description Data Ellie rce(s) Supporting Document(s) C reactive protein quantitativ < 0.30 0.00-0.30 C Reactive Protein Quantitativ HILDA ([facility]) ID Date Data Source [id number] 01/09/2020 03:51:00 PM EST HILDA ([facility]) Name Value Range Interpretation Code Description Data Ellie rce(s) Supporting Document(s) HDL cholesterol 38 mg/dL >40 Below low normal HDL Cholestero l HILDA ([facility]) triglycerides level 314 mg/dL <150 Above high normal Triglycer ides Level HILDA ([facility]) cholesterol level 278 mg/dL <200 Above high normal Cholesterol Level HILDA ([facility]) non-HDL-C 240 mg/dL Non-hdl-c HILDA ([facility]) cholesterol risk ratio <5 Above high normal Choles terol Risk Ratio HILDA ([facility]) Cholesterol in LDL [Mass/volume] in Serum or Plasma 177 mg/dL <100 Above high normal LDL Cholesterol HILDA ([facility]) ID Date Data Source [id number] 01/09/2020 03:51:00 PM EST HILDA ([facility]) Name Value Range Interpretation Code Description Data Ellie rce(s) Supporting Document(s) C reactive protein quantitativ < 0.30 0.00-0.30 C Reactive Protein Quantitativ HILDA ([facility]) ID Date Data Source [id number] 01/09/2020 03:51:00 PM EST HILDA ([facility]) Name Value Range Interpretation Code Description Data Ellie rce(s) Supporting Document(s) triglycerides level 314 mg/dL <150 Above high normal Triglycer ides Level HILDA ([facility]) cholesterol risk ratio <5 Above high normal Choles terol Risk Ratio HILDA ([facility]) Cholesterol in LDL [Mass/volume] in Serum or Plasma 177 mg/dL <100 Above high normal LDL Cholesterol HILDA ([facility]) HDL cholesterol 38 mg/dL >40 Below low normal HDL Cholestero l HILDA ([facility]) cholesterol level 278 mg/dL <200 Above high normal Cholesterol Level HILDA ([facility]) non-HDL-C 240 mg/dL Non-hdl-c HILDA ([facility]) ID Date Data Source [id number] 01/09/2020 03:51:00 PM EST HILDA ([facility]) Name Value Range Interpretation Code Description Data Ellie rce(s) Supporting Document(s) C reactive protein quantitativ < 0.30 0.00-0.30 C Reactive Protein Quantitativ HILDA ([facility]) ID Date Data Source [id number] 01/09/2020 03:51:00 PM EST HILDA ([facility]) Name Value Range Interpretation Code Description Data Ellie rce(s) Supporting Document(s) cholesterol level 278 mg/dL <200 Above high normal Cholesterol Level HILDA ([facility]) triglycerides level 314 mg/dL <150 Above high normal Triglycer ides Level HILDA ([facility]) non-HDL-C 240 mg/dL Non-hdl-c HILDA ([facility]) Cholesterol in LDL [Mass/volume] in Serum or Plasma 177 mg/dL <100 Above high normal LDL Cholesterol [facility] ([facility]) cholesterol risk ratio <5 Above high normal Choles terol Risk Ratio HILDA ([facility]) HDL cholesterol 38 mg/dL >40 Below low normal HDL Cholestero l HILDA ([facility]) ID Date Data Source [id number] 01/09/2020 03:51:00 PM EST HILDA ([facility]) Name Value Range Interpretation Code Description Data Ellie rce(s) Supporting Document(s) C reactive protein quantitativ < 0.30 0.00-0.30 C Reactive Protein Quantitativ HILDA ([facility]) ID Date Data Source [id number] 01/09/2020 03:51:00 PM EST HILDA ([facility]) Name Value Range Interpretation Code Description Data Ellie rce(s) Supporting Document(s) cholesterol level 278 mg/dL <200 Above high normal Cholesterol Level HILDA ([facility]) HDL cholesterol 38 mg/dL >40 Below low normal HDL Cholestero l HILDA ([facility]) triglycerides level 314 mg/dL <150 Above high normal Triglycer ides Level HILDA ([facility]) Cholesterol in LDL [Mass/volume] in Serum or Plasma 177 mg/dL <100 Above high normal LDL Cholesterol HILDA ([facility]) cholesterol risk ratio <5 Above high normal Choles terol Risk Ratio HILDA ([facility]) non-HDL-C 240 mg/dL Non-hdl-c HILDA ([facility]) ID Date Data Source [id number] 01/09/2020 03:51:00 PM EST HILDA ([facility]) Name Value Range Interpretation Code Description Data Ellie rce(s) Supporting Document(s) C reactive protein quantitativ < 0.30 0.00-0.30 C Reactive Protein Quantitativ HILDA ([facility]) ID Date Data Source [id number] 01/09/2020 03:51:00 PM EST HILDA ([facility]) Name Value Range Interpretation Code Description Data Ellie rce(s) Supporting Document(s) triglycerides level 314 mg/dL <150 Above high normal Triglycer ides Level HILDA ([facility]) Cholesterol in LDL [Mass/volume] in Serum or Plasma 177 mg/dL <100 Above high normal LDL Cholesterol HILDA ([facility]) cholesterol level 278 mg/dL <200 Above high normal Cholesterol Level HILDA ([facility]) HDL cholesterol 38 mg/dL >40 Below low normal HDL Cholestero l HILDA ([facility]) non-HDL-C 240 mg/dL Non-hdl-c HILDA ([facility]) cholesterol risk ratio <5 Above high normal Choles terol Risk Ratio HILDA ([facility]) ID Date Data Source [id number] 12/17/2019 04:48:00 PM EST MEDENT ([facility]) Name Value Range Interpretation Code Description Data Ellie rce(s) Supporting Document(s) White Blood Count 8.2 4.0-10.0 MEDENT ([facility]) Red Blood Count 5.36 4.00-5.40 MEDENT ([facility]) Hemoglobin 14.5 MED[facility] ([facility]) Platelets 248 172-450 [facility] Hematocrit 45.1 MEDENT ([facility]) ID Date Data Source [id number] 12/17/2019 04:48:00 PM EST [facility] ([facility]) Name Value Range Interpretation Code Description Data Ellie rce(s) Supporting Document(s) Magnesium Level 2.0 1.8-2.4 MEDENT ([facility]) Thyroid Stimulating Hormone 1.360 ME DENT ([facility]) Free T4 0.73 MEDENT ([facility]) ID Date Data Source [id number] 12/17/2019 04:48:00 PM EST [facility] Name Value Range Interpretation Code Description Data Ellie rce(s) Supporting Document(s) Alanine aminotransferase [Enzymatic activity/volume] in Serum or Pl asma 39 MEDENT ([facility]) Albumin [Mass/volume] in Serum or Plasma 3.7 MEDENT ([facility]) Calcium [Mass/volume] in Serum or Plasma 8.9 MEDENT ([facility]) Carbon dioxide, total [Moles/volume] in Serum or Plasma 30 MEDENT ([facility]) Chloride [Moles/volume] in Serum or Plasma 105 MEDENT ([facility]) Alkaline phosphatase [Enzymatic activity/volume] in Serum or Plasma 8 0 MEDENT ([facility]) Protein [Mass/volume] in Serum or Plasma 7.1 MEDENT ([facility]) Potassium [Moles/volume] in Serum or Plasma 4.0 MEDENT ([facility]) Sodium 142 MEDENT ([facility]) Urea nitrogen [Mass/volume] in Serum or Plasma 20 MEDENT ([facility]) Glucose 83 70-100 [facility] Aspartate aminotransferase [Enzymatic activity/volume] in Serum or Plasma 24 MEDENT ([facility]) Creatinine For GFR 1.16 MEDENT ([facility]) ID Date Data Source [id number] 12/16/2019 02:05:00 PM EST HILDA ([facility]) Name Value Range Interpretation Code Description Data Ellie rce(s) Supporting Document(s) ID Date Data Source [id number] 12/16/2019 02:05:00 PM EST HILDA [facility]) Name Value Range Interpretation Code Description Data Ellie rce(s) Supporting Document(s) ID Date Data Source [id number] 12/16/2019 02:05:00 PM EST HILDA [facility]) Name Value Range Interpretation Code Description Data Ellie rce(s) Supporting Document(s) ID Date Data Source [id number] 12/16/2019 02:05:00 PM EST HILDA [facility]) Name Value Range Interpretation Code Description Data Ellie rce(s) Supporting Document(s) ID Date Data Source [id number] 12/16/2019 02:05:00 PM EST HILDA [facility]) Name Value Range Interpretation Code Description Data Ellie rce(s) Supporting Document(s) ID Date Data Source [id number] 12/16/2019 02:05:00 PM EST HILDA [facility]) Name Value Range Interpretation Code Description Data Ellie rce(s) Supporting Document(s) ID Date Data Source [id number] 12/16/2019 02:05:00 PM EST HILDA [facility]) Name Value Range Interpretation Code Description Data Ellie rce(s) Supporting Document(s) ID Date Data Source [id number] 12/16/2019 02:05:00 PM EST HILDA ([facility]) Name Value Range Interpretation Code Description Data Ellie rce(s) Supporting Document(s) ID Date Data Source [id number] 12/16/2019 02:05:00 PM EST HILDA ([facility]) Name Value Range Interpretation Code Description Data Ellie rce(s) Supporting Document(s) ID Date Data Source [id number] 12/16/2019 02:05:00 PM EST HILDA ([facility]) Name Value Range Interpretation Code Description Data Ellie rce(s) Supporting Document(s) ID Date Data Source [id number] 12/16/2019 02:05:00 PM EST HILDA ([facility]) Name Value Range Interpretation Code Description Data Ellie rce(s) Supporting Document(s) ID Date Data Source [id number] 12/16/2019 02:05:00 PM EST HILDA ([facility]) Name Value Range Interpretation Code Description Data Ellie rce(s) Supporting Document(s) ID Date Data Source [id number] 12/16/2019 02:05:00 PM EST HILDA ([facility]) Name Value Range Interpretation Code Description Data Ellie rce(s) Supporting Document(s) ID Date Data Source [id number] 12/16/2019 02:05:00 PM EST HILDA ([facility]) Name Value Range Interpretation Code Description Data Ellie rce(s) Supporting Document(s) ID Date Data Source [id number] 12/16/2019 02:05:00 PM EST HILDA [facility]) Name Value Range Interpretation Code Description Data Ellie rce(s) Supporting Document(s) ID Date Data Source [id number] 12/16/2019 02:05:00 PM EST HILDA ([facility]) Name Value Range Interpretation Code Description Data Ellie rce(s) Supporting Document(s) ID Date Data Source [id number] 12/16/2019 02:05:00 PM EST HILDA ([facility]) Name Value Range Interpretation Code Description Data Ellie rce(s) Supporting Document(s) ID Date Data Source [id number] 12/16/2019 02:05:00 PM EST HILDA ([facility]) Name Value Range Interpretation Code Description Data Ellie rce(s) Supporting Document(s) ID Date Data Source [id number] 12/16/2019 02:05:00 PM EST HILDA ([facility]) Name Value Range Interpretation Code Description Data Ellie rce(s) Supporting Document(s) ID Date Data Source [id number] 12/16/2019 02:05:00 PM EST HILDA ([facility]) Name Value Range Interpretation Code Description Data Ellie rce(s) Supporting Document(s) ID Date Data Source [id number] 12/16/2019 02:05:00 PM EST HILDA ([facility]) Name Value Range Interpretation Code Description Data Ellie rce(s) Supporting Document(s) ID Date Data Source [id number] 12/16/2019 02:05:00 PM EST HILDA ([facility]) Name Value Range Interpretation Code Description Data Ellie rce(s) Supporting Document(s) ID Date Data Source [id number] 12/16/2019 02:05:00 PM EST HILDA ([facility]) Name Value Range Interpretation Code Description Data Ellie rce(s) Supporting Document(s) ID Date Data Source [id number] 12/16/2019 02:05:00 PM EST HILDA ([facility]) Name Value Range Interpretation Code Description Data Ellie rce(s) Supporting Document(s) ID Date Data Source [id number] 12/16/2019 02:05:00 PM EST HILDA ([facility]) Name Value Range Interpretation Code Description Data Ellie rce(s) Supporting Document(s) ID Date Data Source [id number] 12/16/2019 02:05:00 PM EST HILDA ([facility]) Name Value Range Interpretation Code Description Data Ellie rce(s) Supporting Document(s) ID Date Data Source [id number] 12/16/2019 02:05:00 PM EST HILDA ([facility]) Name Value Range Interpretation Code Description Data Ellie rce(s) Supporting Document(s) ID Date Data Source [id number] 12/16/2019 02:05:00 PM EST HILDA ([facility]) Name Value Range Interpretation Code Description Data Ellie rce(s) Supporting Document(s) ID Date Data Source [id number] 12/16/2019 02:05:00 PM EST HILDA ([facility]) Name Value Range Interpretation Code Description Data Ellie rce(s) Supporting Document(s) ID Date Data Source [id number] 12/16/2019 02:05:00 PM EST HILDA [facility]) Name Value Range Interpretation Code Description Data Ellie rce(s) Supporting Document(s) ID Date Data Source [id number] 12/16/2019 02:05:00 PM EST HILDA ([facility]) Name Value Range Interpretation Code Description Data Ellie rce(s) Supporting Document(s) ID Date Data Source [id number] 12/16/2019 02:05:00 PM EST HILDA ([facility]) Name Value Range Interpretation Code Description Data Ellie rce(s) Supporting Document(s) ID Date Data Source [id number] 12/16/2019 02:05:00 PM EST HILDA ([facility]) Name Value Range Interpretation Code Description Data Ellie rce(s) Supporting Document(s) ID Date Data Source [id number] 12/16/2019 02:05:00 PM EST HILDA ([facility]) Name Value Range Interpretation Code Description Data Ellie rce(s) Supporting Document(s) ID Date Data Source [id number] 12/16/2019 02:05:00 PM EST HILDA ([facility]) Name Value Range Interpretation Code Description Data Ellie rce(s) Supporting Document(s) ID Date Data Source [id number] 12/16/2019 02:05:00 PM EST HILDA ([facility]) Name Value Range Interpretation Code Description Data Ellie rce(s) Supporting Document(s) ID Date Data Source [id number] 12/16/2019 02:05:00 PM EST HILDA ([facility]) Name Value Range Interpretation Code Description Data Ellie rce(s) Supporting Document(s) ID Date Data Source [id number] 12/11/2019 04:30:00 AM EST HILDA [facility]) Name Value Range Interpretation Code Description Data Ellie rce(s) Supporting Document(s) SARS-CoV-2 (COVID-19) RNA [Presence] in Respiratory specimen by HITESH with probe detection not detected not detected Sars Cov 2 RNA [facility]) ID Date Data Source [id number] 12/11/2019 04:30:00 AM EST [facility]) Name Value Range Interpretation Code Description Data Ellie rce(s) Supporting Document(s) SARS-CoV-2 (COVID-19) RNA [Presence] in Respiratory specimen by HITESH with probe detection not detected not detected Sars Cov 2 RNA [facility]) ID Date Data Source [id number] 12/11/2019 04:30:00 AM EST [facility]) Name Value Range Interpretation Code Description Data Ellie rce(s) Supporting Document(s) SARS-CoV-2 (COVID-19) RNA [Presence] in Respiratory specimen by HITESH with probe detection not detected not detected Sars Cov 2 RNA [facility]) ID Date Data Source [id number] 12/11/2019 04:30:00 AM EST [facility]) Name Value Range Interpretation Code Description Data Ellie rce(s) Supporting Document(s) SARS-CoV-2 (COVID-19) RNA [Presence] in Respiratory specimen by HITESH with probe detection not detected not detected Sars Cov 2 RNA [facility]) ID Date Data Source [id number] 12/11/2019 04:30:00 AM EST [facility]) Name Value Range Interpretation Code Description Data Ellie rce(s) Supporting Document(s) SARS-CoV-2 (COVID-19) RNA [Presence] in Respiratory specimen by HITESH with probe detection not detected not detected Sars Cov 2 RNA [facility]) ID Date Data Source [id number] 12/11/2019 04:30:00 AM EST [place] ([facility]) Name Value Range Interpretation Code Description Data Ellie rce(s) Supporting Document(s) SARS-CoV-2 (COVID-19) RNA [Presence] in Respiratory specimen by HITESH with probe detection not detected not detected Sars Cov 2 RNA [facility]) ID Date Data Source [id number] 12/11/2019 04:30:00 AM EST [facility]) Name Value Range Interpretation Code Description Data Ellie rce(s) Supporting Document(s) SARS-CoV-2 (COVID-19) RNA [Presence] in Respiratory specimen by HITESH with probe detection not detected not detected Sars Cov 2 RNA [facility]) ID Date Data Source [id number] 12/11/2019 04:30:00 AM EST [facility]) Name Value Range Interpretation Code Description Data Ellie rce(s) Supporting Document(s) SARS-CoV-2 (COVID-19) RNA [Presence] in Respiratory specimen by HITESH with probe detection not detected not detected Sars Cov 2 RNA [facility]) ID Date Data Source [id number] 12/11/2019 04:30:00 AM EST [facility]) Name Value Range Interpretation Code Description Data Ellie rce(s) Supporting Document(s) SARS-CoV-2 (COVID-19) RNA [Presence] in Respiratory specimen by HITESH with probe detection not detected not detected Sars Cov 2 RNA [facility]) ID Date Data Source [id number] 12/11/2019 04:30:00 AM EST [facility]) Name Value Range Interpretation Code Description Data Ellie rce(s) Supporting Document(s) SARS-CoV-2 (COVID-19) RNA [Presence] in Respiratory specimen by HITESH with probe detection not detected not detected Sars Cov 2 RNA [facility]) ID Date Data Source [id number] 12/11/2019 04:30:00 AM EST [place] ([facility]) Name Value Range Interpretation Code Description Data Ellie rce(s) Supporting Document(s) SARS-CoV-2 (COVID-19) RNA [Presence] in Respiratory specimen by HITESH with probe detection not detected not detected Sars Cov 2 RNA [facility]) ID Date Data Source [id number] 12/11/2019 04:30:00 AM EST [facility]) Name Value Range Interpretation Code Description Data Ellie rce(s) Supporting Document(s) SARS-CoV-2 (COVID-19) RNA [Presence] in Respiratory specimen by HITESH with probe detection not detected not detected Sars Cov 2 RNA [facility]) ID Date Data Source [id number] 12/11/2019 04:30:00 AM EST [facility]) Name Value Range Interpretation Code Description Data Ellie rce(s) Supporting Document(s) SARS-CoV-2 (COVID-19) RNA [Presence] in Respiratory specimen by HITESH with probe detection not detected not detected Sars Cov 2 RNA [facility]) ID Date Data Source [id number] 12/11/2019 04:30:[facility] Name Value Range Interpretation Code Description Data Ellie rce(s) Supporting Document(s) SARS-CoV-2 (COVID-19) RNA [Presence] in Respiratory specimen by HITESH with probe detection not detected not detected Sars Cov 2 RNA [facility]) ID Date Data Source [id number] 12/11/2019 04:30:00 AM EST [facility]) Name Value Range Interpretation Code Description Data Ellie rce(s) Supporting Document(s) SARS-CoV-2 (COVID-19) RNA [Presence] in Respiratory specimen by HITESH with probe detection not detected not detected Sars Cov 2 RNA [place] ([facility]) ID Date Data Source [id number] 12/11/2019 04:30:00 AM EST [facility]) Name Value Range Interpretation Code Description Data Ellie rce(s) Supporting Document(s) SARS-CoV-2 (COVID-19) RNA [Presence] in Respiratory specimen by HITESH with probe detection not detected not detected Sars Cov 2 RNA [facility]) ID Date Data Source [id number] 12/11/2019 04:30:00 AM EST [facility]) Name Value Range Interpretation Code Description Data Ellie rce(s) Supporting Document(s) SARS-CoV-2 (COVID-19) RNA [Presence] in Respiratory specimen by HITESH with probe detection not detected not detected Sars Cov 2 RNA [facility]) ID Date Data Source [id number] 12/11/2019 04:30:00 AM EST [facility]) Name Value Range Interpretation Code Description Data Ellie rce(s) Supporting Document(s) SARS-CoV-2 (COVID-19) RNA [Presence] in Respiratory specimen by HITESH with probe detection not detected not detected Sars Cov 2 RNA [facility]) ID Date Data Source [id number] 12/11/2019 04:30:00 AM EST [facility]) Name Value Range Interpretation Code Description Data Ellie rce(s) Supporting Document(s) SARS-CoV-2 (COVID-19) RNA [Presence] in Respiratory specimen by HITESH with probe detection not detected not detected Sars Cov 2 RNA [facility]) ID Date Data Source [id number] 12/11/2019 04:30:00 AM EST [facility]) Name Value Range Interpretation Code Description Data Ellie rce(s) Supporting Document(s) SARS-CoV-2 (COVID-19) RNA [Presence] in Respiratory specimen by HITESH with probe detection not detected not detected Sars Cov 2 RNA [facility]) ID Date Data Source [id number] 12/11/2019 04:30:00 AM EST [facility]) Name Value Range Interpretation Code Description Data Ellie rce(s) Supporting Document(s) SARS-CoV-2 (COVID-19) RNA [Presence] in Respiratory specimen by HITESH with probe detection not detected not detected Sars Cov 2 RNA [facility]) ID Date Data Source [id number] 12/11/2019 04:30:00 AM EST [facility]) Name Value Range Interpretation Code Description Data Ellie rce(s) Supporting Document(s) SARS-CoV-2 (COVID-19) RNA [Presence] in Respiratory specimen by HITESH with probe detection not detected not detected Sars Cov 2 RNA [facility]) ID Date Data Source [id number] 12/11/2019 04:30:00 AM EST [facility]) Name Value Range Interpretation Code Description Data Ellie rce(s) Supporting Document(s) SARS-CoV-2 (COVID-19) RNA [Presence] in Respiratory specimen by HITESH with probe detection not detected not detected Sars Cov 2 RNA [facility]) ID Date Data Source [id number] 12/11/2019 04:30:00 AM EST [facility]) Name Value Range Interpretation Code Description Data Ellie rce(s) Supporting Document(s) SARS-CoV-2 (COVID-19) RNA [Presence] in Respiratory specimen by HITESH with probe detection not detected not detected Sars Cov 2 RNA [facility]) ID Date Data Source [id number] 12/11/2019 04:30:00 AM EST [place] ([facility]) Name Value Range Interpretation Code Description Data Ellie rce(s) Supporting Document(s) SARS-CoV-2 (COVID-19) RNA [Presence] in Respiratory specimen by HTIESH with probe detection not detected not detected Sars Cov 2 RNA [facility]) ID Date Data Source [id number] 12/11/2019 04:30:00 AM EST [facility]) Name Value Range Interpretation Code Description Data Ellie rce(s) Supporting Document(s) SARS-CoV-2 (COVID-19) RNA [Presence] in Respiratory specimen by HITESH with probe detection not detected not detected Sars Cov 2 RNA [facility]) ID Date Data Source [id number] 12/11/2019 04:30:00 AM EST [facility]) Name Value Range Interpretation Code Description Data Ellie rce(s) Supporting Document(s) SARS-CoV-2 (COVID-19) RNA [Presence] in Respiratory specimen by HITESH with probe detection not detected not detected Sars Cov 2 RNA [facility]) ID Date Data Source [id number] 12/11/2019 04:30:00 AM EST [facility]) Name Value Range Interpretation Code Description Data Ellie rce(s) Supporting Document(s) SARS-CoV-2 (COVID-19) RNA [Presence] in Respiratory specimen by HITESH with probe detection not detected not detected Sars Cov 2 RNA [facility]) ID Date Data Source [id number] 12/11/2019 04:30:00 AM EST [facility]) Name Value Range Interpretation Code Description Data Ellie rce(s) Supporting Document(s) SARS-CoV-2 (COVID-19) RNA [Presence] in Respiratory specimen by HITESH with probe detection not detected not detected Sars Cov 2 RNA HILDA ([facility]) ID Date Data Source [id number] 12/11/2019 04:30:00 AM EST HILDA ([facility]) Name Value Range Interpretation Code Description Data Ellie rce(s) Supporting Document(s) SARS-CoV-2 (COVID-19) RNA [Presence] in Respiratory specimen by HITESH with probe detection not detected not detected [facility] Date Data Source [id number] 12/11/2019 04:30:00 AM EST [facility] Name Value Range Interpretation Code Description Data Ellie rce(s) Supporting Document(s) SARS coronavirus 2 RNA [Presence] in Res piratory specimen by HITESH with probe detection not detected not detected Sars Cov 2 RNA [facility]) ID Date Data Source [id number] 12/11/2019 04:30:00 AM EST [facility] Name Value Range Interpretation Code Description Data Ellie rce(s) Supporting Document(s) SARS coronavirus 2 RNA [Presence] in Res piratory specimen by HITESH with probe detection not detected not detected Sars Cov 2 RNA [facility]) ID Date Data Source [id number] 12/11/2019 04:30:00 AM EST [facility] Name Value Range Interpretation Code Description Data Ellie rce(s) Supporting Document(s) SARS coronavirus 2 RNA [Presence] in Res piratory specimen by HITESH with probe detection not detected not detected Sars Cov 2 RNA HILDA ([facility]) ID Date Data Source [id number] 12/11/2019 04:30:00 AM EST [facility] Name Value Range Interpretation Code Description Data Ellie rce(s) Supporting Document(s) SARS coronavirus 2 RNA [Presence] in Res piratory specimen by HITESH with probe detection not detected not detected Sars Cov 2 RNA HILDA ([facility]) ID Date Data Source [id number] 12/11/2019 04:30:00 AM EST [facility] Name Value Range Interpretation Code Description Data Ellie rce(s) Supporting Document(s) SARS-COV-2 RNA RESP QL HITESH+PROBE [facility] This lab was ordered by [facility] and reported by [employer] [facility]. ID Date Data Source [id number] 12/11/2019 04:30:00 AM EST [place] ([facility]) Name Value Range Interpretation Code Description Data Ellie rce(s) Supporting Document(s) SARS-CoV-2 (COVID-19) RNA [Presence] in Respiratory specimen by HITESH with probe detection not detected not detected Sars Cov 2 RNA [facility]) ID Date Data Source [id number] 12/11/2019 04:30:00 AM EST [place] ([facility]) Name Value Range Interpretation Code Description Data Ellie rce(s) Supporting Document(s) SARS-CoV-2 (COVID-19) RNA [Presence] in Respiratory specimen by HITESH with probe detection not detected not detected Sars Cov 2 RNA [place] ([facility]) ID Date Data Source [id number] 12/11/2019 04:30:00 AM EST [facility]) Name Value Range Interpretation Code Description Data Ellie rce(s) Supporting Document(s) SARS-CoV-2 (COVID-19) RNA [Presence] in Respiratory specimen by HITESH with probe detection not detected not detected Sars Cov 2 RNA [facility]) ID Date Data Source [id number] 10/28/2019 05:05:00 PM EDT MEDENT ([facility]) Name Value Range Interpretation Code Description Data Ellie rce(s) Supporting Document(s) Troponin Laboratory test result MEDENT ([facility]) ID Date Data Source [id number] 10/28/2019 05:05:00 PM EDT [facility]) Name Value Range Interpretation Code Description Data Ellie rce(s) Supporting Document(s) Creatine kinase [Enzymatic activity/volume] in Serum or Plasma 359 MEDENT ([facility]) CPK-MB Laboratory test result MEDENT ([facility]) ID Date Data Source [id number] 10/28/2019 03:32:56 PM EDT [facility] Measurements [...] 2019 3:36 PMPatient History Medical History:Anxiety/panicInsomniaSurgical History:Family History:VCR-vtbdamThcslml-hjsvjkeNfeglt/Personal History:Smoking History:Patient has never smoked. Chief Complaintfollow-up [...] jaw, sadness/scared/depressed. Pt also was seen in [facility] ER last night/this morning for panic [...] during this visit, including review of any apfg-yjb-olrijrh medications, herbal therapies, and/or supplements.Allergy ReviewAllergy List [...] is? ExcellentAssessment & Plan Problems:Added: Chronic insomnia (JPQ41-K38.04) Assessment: Instructions: As above.Chest pain, unspecified (JDV75-U96.9) Assessment: Instructions: Referral to cardiology for evaluation. Unlikely to be cardiac in nature with frequent labs/EKG.Bradycardia (ICD-427.89) (ICD10- R00.1) Assessment: Instructions: Likely secondary to routine fitness levels. However, given brother's syncopal episodes and loop recorder, will refer to cardiology for evaluation.Assessed:GENERALIZED ANXIETY DISORDER (ICD- 300.02) (HUU57-N47.1) Assessment: Instructions: Continue current Lexapro daily and [...] HYDROXYZINE HCL 10 MG ORAL TABLET Qty: [id number] Refills: 30[Tablet] To: HYDROXYZINE HCL 10 MG ORAL TABLET-Take 1 tablet po q 6 hrs prnAllergies:No Known Allergies (updated 10/28/2019) Orders:Cardiology Consult [CPT-49097] Adult - Ofc Vst, EST, Level III [CPT- 72662] Follow-Up Return to clinic: in 2 months for follow upAdditional Follow- Up: cardio referral, anxietyClinical Visit Summary CompletedMedications:HYDROXYZINE HCL 25 MG ORAL TABLET (HYDROXYZINE HCL) Take 1- 2 tablets by mouth at bedtime prn insomnia #60[Tablet] x 1 Route:ORAL Entered and Authorized by: Terry AGUAYO Method used: Electronically to [id number]* (retail) [address] [place] [address] Note to Pharmacy: Route: ORAL; Indications: CHRONIC INSOMNIA;GENERALIZED ANXIETY DISORDER RxID: [id number] signed by Terry AGUAYO on 11/13/2019 at 8:30 AM Name Value Range Interpretation Code Description Data Ellie rce(s) Supporting Document(s) ID Date Data Source [id number] 10/28/2019 02:21:00 AM EDT [facility] Name Value Range Interpretation Code Description Data Ellie rce(s) Supporting Document(s) HCT 45.6 % 42.0-52.0 [facility] HGB 14.9 g/dL 13.5-17.5 [facility] MCH 32.7 G/DL pg 32.0-36.5 [facility] MCHC 27.6 PG % 27.0-33.0 [facility] PLATELETS 259 10 10*3/mm3 150-450 N [facility] RBC 5.40 10 10*6/mm3 4.30-6.10 [facility] RDW 13.2 % 11.5-14.5 [facility] WBC TOTAL 10.0 4.0-10.0 N [facility] ID Date Data Source [id number] 10/28/2019 02:21:00 AM EDT [facility] Name Value Range Interpretation Code Description Data Ellie rce(s) Supporting Document(s) BG FASTING 102 mg/dL 70-100 H [facility] Procedure Social History Code Duration Value Status Description Data Source(s ) Smoking 01/07/2020 12:00:00 AM EST Patient is a former smoker completed Patient is a former smoker MED[facility] ([facility]) Vital Signs ID Date Data Source UNK Name Value Range Interpretation Code Description Data Source(s) Respiratory rate 12 /min 12 /min MEDENT ( [facility], ) Body height 72 [in_i] 72 [in_i] MEDENT ([facility], ) 6'0" Body weight 214.00 [lb_av] 214.00 [lb_av] MEDEN T ([facility], ) Body mass index (BMI) [Ratio] 29.0 kg/m2 29.0 k g/m2 MEDENT ([facility], ) [place] body weight 178 [lb_av] 178 [lb_av] MEDEN T ([facility], ) Body temperature 97.7 [degF] 97.7 [degF] MEDENT ([facility] ) Body height 72 [in_i] 72 [in_i] MEDENT ([facility] ) 6'0" Body weight 214.12 [lb_av] 214.12 [lb_av] MEDEN T ([facility] ) Body mass index (BMI) [Ratio] 29.0 kg/m2 29.0 k g/m2 MEDENT ([facility] ) Diastolic blood pressure 76 mm[Hg] 76 mm[Hg] HILDA ([facility]) Body height 72 [in_i] 72 [in_i] HILDA ([facility]) Body mass index (BMI) [Ratio] 29.7 kg/m2 29.7 k g/m2 HILDA ([facility]) Systolic blood pressure 123 mm[Hg] 123 mm[Hg] A THENA ([facility]) Body weight 3507.2 [oz_av] 3507.2 [oz_av] ATHEN A ([facility]) Diastolic blood pressure 76 mm[Hg] 76 mm[Hg] HILDA ([facility]) Body height 72 [in_i] 72 [in_i] HILDA ([facility]) Body mass index (BMI) [Ratio] 29.7 kg/m2 29.7 k g/m2 HILDA ([facility]) Systolic blood pressure 123 mm[Hg] 123 mm[Hg] [facility] Body weight 3507.2 [oz_av] 3507.2 [oz_av] ATHEN A ([facility]) Diastolic blood pressure 76 mm[Hg] 76 mm[Hg] HILDA ([facility]) Body height 72 [in_i] 72 [in_i] HILDA ([facility]) Body mass index (BMI) [Ratio] 29.7 kg/m2 29.7 k g/m2 HILDA ([facility]) Systolic blood pressure 123 mm[Hg] 123 mm[Hg] A [facility] ([facility]) Body weight 3507.2 [oz_av] 3507.2 [oz_av] ATHEN A ([facility]) Body mass index (BMI) [Ratio] 29.7 kg/m2 29.7 k g/m2 HILDA ([facility]) Diastolic blood pressure 76 mm[Hg] 76 mm[Hg] HILDA ([facility]) Body height 72 [in_i] 72 [in_i] HILDA ([facility]) Systolic blood pressure 123 mm[Hg] 123 mm[Hg] A THENA ([facility]) Body weight 3507.2 [oz_av] 3507.2 [oz_av] ATHEN A ([facility]) Diastolic blood pressure 76 mm[Hg] 76 mm[Hg] HILDA ([facility]) Body height 72 [in_i] 72 [in_i] HILDA ([facility]) Body mass index (BMI) [Ratio] 29.7 kg/m2 29.7 k g/m2 HILDA ([facility]) Systolic blood pressure 123 mm[Hg] 123 mm[Hg] A [facility] ([facility]) Body weight 3507.2 [oz_av] 3507.2 [oz_av] ATHEN A ([facility]) Diastolic blood pressure 76 mm[Hg] 76 mm[Hg] HILDA ([facility]) Body height 72 [in_i] 72 [in_i] HILDA ([facility]) Body mass index (BMI) [Ratio] 29.7 kg/m2 29.7 k g/m2 HILDA ([facility]) Systolic blood pressure 123 mm[Hg] 123 mm[Hg] A THENA ([facility]) Body weight 3507.2 [oz_av] 3507.2 [oz_av] ATHEN A ([facility]) Diastolic blood pressure 76 mm[Hg] 76 mm[Hg] HILDA ([facility]) Body height 72 [in_i] 72 [in_i] HILDA ([facility]) Body mass index (BMI) [Ratio] 29.7 kg/m2 29.7 k g/m2 HILDA ([facility]) Systolic blood pressure 123 mm[Hg] 123 mm[Hg] A THENA ([facility]) Body weight 3507.2 [oz_av] 3507.2 [oz_av] ATHEN A ([facility]) Diastolic blood pressure 76 mm[Hg] 76 mm[Hg] HILDA ([facility]) Body height 72 [in_i] 72 [in_i] HILDA ([facility]) Body mass index (BMI) [Ratio] 29.7 kg/m2 29.7 k g/m2 HILDA ([facility]) Systolic blood pressure 123 mm[Hg] 123 mm[Hg] A THENA ([facility]) Body weight 3507.2 [oz_av] 3507.2 [oz_av] ATHEN A ([facility]) Body weight 3507.2 [oz_av] 3507.2 [oz_av] ATHEN A ([facility]) Diastolic blood pressure 76 mm[Hg] 76 mm[Hg] HILDA ([facility]) Body height 72 [in_i] 72 [in_i] HILDA ([facility]) Body mass index (BMI) [Ratio] 29.7 kg/m2 29.7 k g/m2 HILDA ([facility]) Systolic blood pressure 123 mm[Hg] 123 mm[Hg] A THENA ([facility]) Systolic blood pressure 123 mm[Hg] 123 mm[Hg] A THENA ([facility]) Body weight 3507.2 [oz_av] 3507.2 [oz_av] ATHEN A ([facility]) Diastolic blood pressure 76 mm[Hg] 76 mm[Hg] HILDA ([facility]) Body height 72 [in_i] 72 [in_i] HILDA ([facility]) Body mass index (BMI) [Ratio] 29.7 kg/m2 29.7 k g/m2 HILDA ([facility]) Diastolic blood pressure 76 mm[Hg] 76 mm[Hg] HILDA ([facility]) Body height 72 [in_i] 72 [in_i] HILDA ([facility]) Body mass index (BMI) [Ratio] 29.7 kg/m2 29.7 k g/m2 HILDA ([facility]) Systolic blood pressure 123 mm[Hg] 123 mm[Hg] [facility] Body weight 3507.2 [oz_av] 3507.2 [oz_av] ATHEN A ([facility]) Diastolic blood pressure 76 mm[Hg] 76 mm[Hg] HILDA ([facility]) Body height 72 [in_i] 72 [in_i] HILDA ([facility]) Body mass index (BMI) [Ratio] 29.7 kg/m2 29.7 k g/m2 HILDA ([facility]) Systolic blood pressure 123 mm[Hg] 123 mm[Hg] A THENA ([facility]) Body weight 3507.2 [oz_av] 3507.2 [oz_av] ATHEN A ([facility]) Diastolic blood pressure 76 mm[Hg] 76 mm[Hg] HILDA ([facility]) Body height 72 [in_i] 72 [in_i] HILDA ([facility]) Body mass index (BMI) [Ratio] 29.7 kg/m2 29.7 k g/m2 HILDA ([facility]) Systolic blood pressure 123 mm[Hg] 123 mm[Hg] A THENA ([facility]) Body weight 3507.2 [oz_av] 3507.2 [oz_av] ATHEN A ([facility]) Diastolic blood pressure 76 mm[Hg] 76 mm[Hg] HILDA ([facility]) Body height 72 [in_i] 72 [in_i] HILDA ([facility]) Body mass index (BMI) [Ratio] 29.7 kg/m2 29.7 k g/m2 HILDA ([facility]) Systolic blood pressure 123 mm[Hg] 123 mm[Hg] A THENA ([facility]) Body weight 3507.2 [oz_av] 3507.2 [oz_av] ATHEN A ([facility]) Diastolic blood pressure 76 mm[Hg] 76 mm[Hg] HILDA ([facility]) Body height 72 [in_i] 72 [in_i] HILDA ([facility]) Body mass index (BMI) [Ratio] 29.7 kg/m2 29.7 k g/m2 HILDA ([facility]) Systolic blood pressure 123 mm[Hg] 123 mm[Hg] A THENA ([facility]) Body weight 3507.2 [oz_av] 3507.2 [oz_av] ATHEN A ([facility]) Body weight 3507.2 [oz_av] 3507.2 [oz_av] ATHEN A ([facility]) Diastolic blood pressure 76 mm[Hg] 76 mm[Hg] HILDA ([facility]) Body height 72 [in_i] 72 [in_i] HILDA ([facility]) Body mass index (BMI) [Ratio] 29.7 kg/m2 29.7 k g/m2 HILDA ([facility]) Systolic blood pressure 123 mm[Hg] 123 mm[Hg] [facility] Diastolic blood pressure 76 mm[Hg] 76 mm[Hg] HILDA ([facility]) Body height 72 [in_i] 72 [in_i] HILDA ([facility]) Body mass index (BMI) [Ratio] 29.7 kg/m2 29.7 k g/m2 HILDA ([facility]) Systolic blood pressure 123 mm[Hg] 123 mm[Hg] A LUISA ([facility]) Body weight 3507.2 [oz_av] 3507.2 [oz_av] ATHEN A ([facility]) Diastolic blood pressure 76 mm[Hg] 76 mm[Hg] HILDA ([facility]) Body height 72 [in_i] 72 [in_i] HILDA ([facility]) Body mass index (BMI) [Ratio] 29.7 kg/m2 29.7 k g/m2 HILDA ([facility]) Systolic blood pressure 123 mm[Hg] 123 mm[Hg] [facility] Body weight 3507.2 [oz_av] 3507.2 [oz_av] ATHEN A ([facility]) Diastolic blood pressure 76 mm[Hg] 76 mm[Hg] HILDA ([facility]) Body height 72 [in_i] 72 [in_i] HILDA ([facility]) Body mass index (BMI) [Ratio] 29.7 kg/m2 29.7 k g/m2 HILDA ([facility]) Systolic blood pressure 123 mm[Hg] 123 mm[Hg] A LUISA ([facility]) Body weight 3507.2 [oz_av] 3507.2 [oz_av] ATHEN A ([facility]) Diastolic blood pressure 73 mm[Hg] 73 mm[Hg] HILDA ([facility]) Body height 72 [in_i] 72 [in_i] HILDA ([facility]) Body mass index (BMI) [Ratio] 30.5 kg/m2 30.5 k g/m2 HILDA ([facility]) Systolic blood pressure 119 mm[Hg] 119 mm[Hg] A THENA ([facility]) Body weight 3603.2 [oz_av] 3603.2 [oz_av] ATHEN A ([facility]) Diastolic blood pressure 73 mm[Hg] 73 mm[Hg] HILDA ([facility]) Body height 72 [in_i] 72 [in_i] HILDA ([facility]) Body mass index (BMI) [Ratio] 30.5 kg/m2 30.5 k g/m2 HILDA ([facility]) Systolic blood pressure 119 mm[Hg] 119 mm[Hg] A MOIZ ([facility]) Body weight 3603.2 [oz_av] 3603.2 [oz_av] ATHEN A ([facility]) Diastolic blood pressure 73 mm[Hg] 73 mm[Hg] HILDA ([facility]) Body height 72 [in_i] 72 [in_i] HILDA ([facility]) Body mass index (BMI) [Ratio] 30.5 kg/m2 30.5 k g/m2 HILDA ([facility]) Systolic blood pressure 119 mm[Hg] 119 mm[Hg] A MOIZ ([facility]) Body weight 3603.2 [oz_av] 3603.2 [oz_av] ATHEN A ([facility]) Diastolic blood pressure 73 mm[Hg] 73 mm[Hg] HILDA ([facility]) Body height 72 [in_i] 72 [in_i] HILDA ([facility]) Body mass index (BMI) [Ratio] 30.5 kg/m2 30.5 k g/m2 HILDA ([facility]) Systolic blood pressure 119 mm[Hg] 119 mm[Hg] A MOIZ ([facility]) Body weight 3603.2 [oz_av] 3603.2 [oz_av] ATHEN A ([facility]) Diastolic blood pressure 73 mm[Hg] 73 mm[Hg] HILDA ([facility]) Body height 72 [in_i] 72 [in_i] HILDA ([facility]) Body mass index (BMI) [Ratio] 30.5 kg/m2 30.5 k g/m2 HILDA ([facility]) Systolic blood pressure 119 mm[Hg] 119 mm[Hg] A MOIZ ([facility]) Body weight 3603.2 [oz_av] 3603.2 [oz_av] ATHEN A ([facility]) Diastolic blood pressure 73 mm[Hg] 73 mm[Hg] HILDA ([facility]) Body height 72 [in_i] 72 [in_i] HILDA ([facility]) Body mass index (BMI) [Ratio] 30.5 kg/m2 30.5 k g/m2 HILDA ([facility]) Systolic blood pressure 119 mm[Hg] 119 mm[Hg] [facility] Body weight 3603.2 [oz_av] 3603.2 [oz_av] ATHEN A ([facility]) Diastolic blood pressure 73 mm[Hg] 73 mm[Hg] HILDA ([facility]) Body height 72 [in_i] 72 [in_i] HILDA ([facility]) Body mass index (BMI) [Ratio] 30.5 kg/m2 30.5 k g/m2 HILDA ([facility]) Systolic blood pressure 119 mm[Hg] 119 mm[Hg] A [facility] ([facility]) Body weight 3603.2 [oz_av] 3603.2 [oz_av] ATHEN A ([facility]) Diastolic blood pressure 73 mm[Hg] 73 mm[Hg] HILDA ([facility]) Body height 72 [in_i] 72 [in_i] HILDA ([facility]) Body mass index (BMI) [Ratio] 30.5 kg/m2 30.5 k g/m2 HILDA ([facility]) Systolic blood pressure 119 mm[Hg] 119 mm[Hg] A MOIZ ([facility]) Body weight 3603.2 [oz_av] 3603.2 [oz_av] ATHEN A ([facility]) Diastolic blood pressure 73 mm[Hg] 73 mm[Hg] HILDA ([facility]) Body height 72 [in_i] 72 [in_i] HILDA ([facility]) Body mass index (BMI) [Ratio] 30.5 kg/m2 30.5 k g/m2 HILDA ([facility]) Systolic blood pressure 119 mm[Hg] 119 mm[Hg] [facility] Body weight 3603.2 [oz_av] 3603.2 [oz_av] ATHEN A ([facility]) Diastolic blood pressure 73 mm[Hg] 73 mm[Hg] HILDA ([facility]) Body height 72 [in_i] 72 [in_i] HILDA ([facility]) Body mass index (BMI) [Ratio] 30.5 kg/m2 30.5 k g/m2 HILDA ([facility]) Systolic blood pressure 119 mm[Hg] 119 mm[Hg] [facility] Body weight 3603.2 [oz_av] 3603.2 [oz_av] ATHEN A ([facility]) Diastolic blood pressure 73 mm[Hg] 73 mm[Hg] HILDA ([facility]) Body height 72 [in_i] 72 [in_i] HILDA ([facility]) Body mass index (BMI) [Ratio] 30.5 kg/m2 30.5 k g/m2 HILDA ([facility]) Systolic blood pressure 119 mm[Hg] 119 mm[Hg] A [facility] ([facility]) Body weight 3603.2 [oz_av] 3603.2 [oz_av] ATHEN A ([facility]) Body height 72 [in_i] 72 [in_i] HILDA ([facility]) Body mass index (BMI) [Ratio] 30.5 kg/m2 30.5 k g/m2 HILDA ([facility]) Systolic blood pressure 119 mm[Hg] 119 mm[Hg] [facility] Body weight 3603.2 [oz_av] 3603.2 [oz_av] ATHEN A ([facility]) Diastolic blood pressure 73 mm[Hg] 73 mm[Hg] HILDA ([facility]) Body height 72 [in_i] 72 [in_i] HILDA ([facility]) Body mass index (BMI) [Ratio] 30.5 kg/m2 30.5 k g/m2 HILDA ([facility]) Systolic blood pressure 119 mm[Hg] 119 mm[Hg] [facility] Body weight 3603.2 [oz_av] 3603.2 [oz_av] ATHEN A ([facility]) Diastolic blood pressure 73 mm[Hg] 73 mm[Hg] HILDA ([facility]) Body height 72 [in_i] 72 [in_i] HILDA ([facility]) Body mass index (BMI) [Ratio] 30.5 kg/m2 30.5 k g/m2 HILDA ([facility]) Systolic blood pressure 119 mm[Hg] 119 mm[Hg] [facility] Body weight 3603.2 [oz_av] 3603.2 [oz_av] ATHEN A ([facility]) Diastolic blood pressure 73 mm[Hg] 73 mm[Hg] HILDA ([facility]) Diastolic blood pressure 73 mm[Hg] 73 mm[Hg] HILDA ([facility]) Body height 72 [in_i] 72 [in_i] HILDA ([facility]) Body mass index (BMI) [Ratio] 30.5 kg/m2 30.5 k g/m2 HILDA ([facility]) Systolic blood pressure 119 mm[Hg] 119 mm[Hg] A [facility] ([facility]) Body weight 3603.2 [oz_av] 3603.2 [oz_av] ATHEN A ([facility]) Body mass index (BMI) [Ratio] 30.5 kg/m2 30.5 k g/m2 HILDA ([facility]) Systolic blood pressure 119 mm[Hg] 119 mm[Hg] A [facility] ([facility]) Body weight 3603.2 [oz_av] 3603.2 [oz_av] ATHEN A ([facility]) Diastolic blood pressure 73 mm[Hg] 73 mm[Hg] HILDA ([facility]) Body height 72 [in_i] 72 [in_i] HILDA ([facility]) Diastolic blood pressure 73 mm[Hg] 73 mm[Hg] HILDA ([facility]) Body height 72 [in_i] 72 [in_i] HILDA ([facility]) Body mass index (BMI) [Ratio] 30.5 kg/m2 30.5 k g/m2 HILDA ([facility]) Systolic blood pressure 119 mm[Hg] 119 mm[Hg] A [facility] ([facility]) Body weight 3603.2 [oz_av] 3603.2 [oz_av] ATHEN A ([facility]) Diastolic blood pressure 73 mm[Hg] 73 mm[Hg] HILDA ([facility]) Body height 72 [in_i] 72 [in_i] HILDA ([facility]) Body mass index (BMI) [Ratio] 30.5 kg/m2 30.5 k g/m2 HILDA ([facility]) Systolic blood pressure 119 mm[Hg] 119 mm[Hg] [facility] Body weight 3603.2 [oz_av] 3603.2 [oz_av] ATHEN A ([facility]) Diastolic blood pressure 73 mm[Hg] 73 mm[Hg] HILDA ([facility]) Body height 72 [in_i] 72 [in_i] HILDA ([facility]) Body mass index (BMI) [Ratio] 30.5 kg/m2 30.5 k g/m2 HILDA ([facility]) Systolic blood pressure 119 mm[Hg] 119 mm[Hg] A THENA ([facility]) Body weight 3603.2 [oz_av] 3603.2 [oz_av] ATHEN A ([facility]) Body height 72 [in_i] 72 [in_i] HILDA ([facility]) Diastolic blood pressure 73 mm[Hg] 73 mm[Hg] HILDA ([facility]) Body mass index (BMI) [Ratio] 30.5 kg/m2 30.5 k g/m2 HILDA ([facility]) Systolic blood pressure 119 mm[Hg] 119 mm[Hg] A THENA ([facility]) Body weight 3603.2 [oz_av] 3603.2 [oz_av] ATHEN A ([facility]) Diastolic blood pressure 73 mm[Hg] 73 mm[Hg] HILDA ([facility]) Body height 72 [in_i] 72 [in_i] HILDA ([facility]) Body mass index (BMI) [Ratio] 30.5 kg/m2 30.5 k g/m2 HILDA ([facility]) Systolic blood pressure 119 mm[Hg] 119 mm[Hg] [facility] Body weight 3603.2 [oz_av] 3603.2 [oz_av] ATHEN A ([facility]) Body mass index (BMI) [Ratio] 30.3 kg/m2 30.3 k g/m2 HILDA ([facility]) Systolic blood pressure 128 mm[Hg] 128 mm[Hg] [facility] Diastolic blood pressure 81 mm[Hg] 81 mm[Hg] HILDA ([facility]) Body height 72 [in_i] 72 [in_i] HILDA ([facility]) Body mass index (BMI) [Ratio] 30.3 kg/m2 30.3 k g/m2 HILDA ([facility]) Systolic blood pressure 128 mm[Hg] 128 mm[Hg] A THENA ([facility]) Body weight 3574.4 [oz_av] 3574.4 [oz_av] ATHEN A ([facility]) Diastolic blood pressure 81 mm[Hg] 81 mm[Hg] HILDA ([facility]) Body height 72 [in_i] 72 [in_i] HILDA ([facility]) Body mass index (BMI) [Ratio] 30.3 kg/m2 30.3 k g/m2 HILDA ([facility]) Systolic blood pressure 128 mm[Hg] 128 mm[Hg] A THENA ([facility]) Body weight 3574.4 [oz_av] 3574.4 [oz_av] ATHEN A ([facility]) Diastolic blood pressure 81 mm[Hg] 81 mm[Hg] HILDA ([facility]) Body height 72 [in_i] 72 [in_i] HILDA ([facility]) Body mass index (BMI) [Ratio] 30.3 kg/m2 30.3 k g/m2 HILDA ([facility]) Systolic blood pressure 128 mm[Hg] 128 mm[Hg] A THENA ([facility]) Body weight 3574.4 [oz_av] 3574.4 [oz_av] ATHEN A ([facility]) Body weight 3574.4 [oz_av] 3574.4 [oz_av] ATHEN A ([facility]) Diastolic blood pressure 81 mm[Hg] 81 mm[Hg] HILDA ([facility]) Body height 72 [in_i] 72 [in_i] HILDA ([facility]) Body mass index (BMI) [Ratio] 30.3 kg/m2 30.3 k g/m2 HILDA ([facility]) Systolic blood pressure 128 mm[Hg] 128 mm[Hg] [facility] Diastolic blood pressure 81 mm[Hg] 81 mm[Hg] HILDA ([facility]) Body height 72 [in_i] 72 [in_i] HILDA ([facility]) Body mass index (BMI) [Ratio] 30.3 kg/m2 30.3 k g/m2 HILDA ([facility]) Systolic blood pressure 128 mm[Hg] 128 mm[Hg] [facility] Body weight 3574.4 [oz_av] 3574.4 [oz_av] ATHEN A ([facility]) Diastolic blood pressure 81 mm[Hg] 81 mm[Hg] HILDA ([facility]) Body height 72 [in_i] 72 [in_i] HILDA ([facility]) Body mass index (BMI) [Ratio] 30.3 kg/m2 30.3 k g/m2 HILDA ([facility]) Systolic blood pressure 128 mm[Hg] 128 mm[Hg] A THENA ([facility]) Body weight 3574.4 [oz_av] 3574.4 [oz_av] ATHEN A ([facility]) Diastolic blood pressure 81 mm[Hg] 81 mm[Hg] HILDA ([facility]) Body height 72 [in_i] 72 [in_i] HILDA ([facility]) Body mass index (BMI) [Ratio] 30.3 kg/m2 30.3 k g/m2 HILDA ([facility]) Systolic blood pressure 128 mm[Hg] 128 mm[Hg] A THENA ([facility]) Body weight 3574.4 [oz_av] 3574.4 [oz_av] ATHEN A ([facility]) Diastolic blood pressure 81 mm[Hg] 81 mm[Hg] HILDA ([facility]) Diastolic blood pressure 81 mm[Hg] 81 mm[Hg] HILDA ([facility]) Body height 72 [in_i] 72 [in_i] HILDA ([facility]) Body mass index (BMI) [Ratio] 30.3 kg/m2 30.3 k g/m2 HILDA ([facility]) Systolic blood pressure 128 mm[Hg] 128 mm[Hg] [facility] Body weight 3574.4 [oz_av] 3574.4 [oz_av] ATHEN A ([facility]) Body height 72 [in_i] 72 [in_i] HILDA ([facility]) Body mass index (BMI) [Ratio] 30.3 kg/m2 30.3 k g/m2 HILDA ([facility]) Systolic blood pressure 128 mm[Hg] 128 mm[Hg] A [facility] ([facility]) Body weight 3574.4 [oz_av] 3574.4 [oz_av] ATHEN A ([facility]) Diastolic blood pressure 81 mm[Hg] 81 mm[Hg] HILDA ([facility]) Body height 72 [in_i] 72 [in_i] HILDA ([facility]) Body mass index (BMI) [Ratio] 30.3 kg/m2 30.3 k g/m2 HILDA ([facility]) Systolic blood pressure 128 mm[Hg] 128 mm[Hg] [facility] Body weight 3574.4 [oz_av] 3574.4 [oz_av] ATHEN A ([facility]) Diastolic blood pressure 81 mm[Hg] 81 mm[Hg] HILDA ([facility]) Body height 72 [in_i] 72 [in_i] HILDA ([facility]) Body mass index (BMI) [Ratio] 30.3 kg/m2 30.3 k g/m2 HILDA ([facility]) Systolic blood pressure 128 mm[Hg] 128 mm[Hg] [facility] Body weight 3574.4 [oz_av] 3574.4 [oz_av] ATHEN A ([facility]) Diastolic blood pressure 81 mm[Hg] 81 mm[Hg] HILDA ([facility]) Body height 72 [in_i] 72 [in_i] HILDA ([facility]) Body weight 3574.4 [oz_av] 3574.4 [oz_av] ATHEN A ([facility]) Diastolic blood pressure 81 mm[Hg] 81 mm[Hg] HILDA ([facility]) Body height 72 [in_i] 72 [in_i] HILDA ([facility]) Body mass index (BMI) [Ratio] 30.3 kg/m2 30.3 k g/m2 HILDA ([facility]) Systolic blood pressure 128 mm[Hg] 128 mm[Hg] A MOIZ ([facility]) Body weight 3574.4 [oz_av] 3574.4 [oz_av] ATHEN A ([facility]) Diastolic blood pressure 81 mm[Hg] 81 mm[Hg] HILDA ([facility]) Body height 72 [in_i] 72 [in_i] HILDA ([facility]) Body mass index (BMI) [Ratio] 30.3 kg/m2 30.3 k g/m2 HILDA ([facility]) Systolic blood pressure 128 mm[Hg] 128 mm[Hg] A MOIZ ([facility]) Body weight 3574.4 [oz_av] 3574.4 [oz_av] ATHEN A ([facility]) Diastolic blood pressure 81 mm[Hg] 81 mm[Hg] HILDA ([facility]) Body height 72 [in_i] 72 [in_i] HILDA ([facility]) Body mass index (BMI) [Ratio] 30.3 kg/m2 30.3 k g/m2 HILDA ([facility]) Systolic blood pressure 128 mm[Hg] 128 mm[Hg] A LUISA ([facility]) Body weight 3574.4 [oz_av] 3574.4 [oz_av] ATHEN A ([facility]) Diastolic blood pressure 81 mm[Hg] 81 mm[Hg] HILDA ([facility]) Body height 72 [in_i] 72 [in_i] HILDA ([facility]) Body mass index (BMI) [Ratio] 30.3 kg/m2 30.3 k g/m2 HILDA ([facility]) Systolic blood pressure 128 mm[Hg] 128 mm[Hg] [facility] Body weight 3574.4 [oz_av] 3574.4 [oz_av] ATHEN A ([facility]) Diastolic blood pressure 81 mm[Hg] 81 mm[Hg] HILDA ([facility]) Body height 72 [in_i] 72 [in_i] HILDA ([facility]) Body mass index (BMI) [Ratio] 30.3 kg/m2 30.3 k g/m2 HILDA ([facility]) Systolic blood pressure 128 mm[Hg] 128 mm[Hg] A [facility] ([facility]) Body weight 3574.4 [oz_av] 3574.4 [oz_av] ATHEN A ([facility]) Body mass index (BMI) [Ratio] 30.3 kg/m2 30.3 k g/m2 HILDA ([facility]) Diastolic blood pressure 81 mm[Hg] 81 mm[Hg] HILDA ([facility]) Body height 72 [in_i] 72 [in_i] HILDA ([facility]) Diastolic blood pressure 81 mm[Hg] 81 mm[Hg] HILDA ([facility]) Body height 72 [in_i] 72 [in_i] HILDA ([facility]) Body mass index (BMI) [Ratio] 30.3 kg/m2 30.3 k g/m2 HILDA ([facility]) Systolic blood pressure 128 mm[Hg] 128 mm[Hg] [facility] Body weight 3574.4 [oz_av] 3574.4 [oz_av] ATHEN A ([facility]) Systolic blood pressure 128 mm[Hg] 128 mm[Hg] [facility] Body weight 3574.4 [oz_av] 3574.4 [oz_av] ATHEN A ([facility]) Diastolic blood pressure 81 mm[Hg] 81 mm[Hg] HILDA ([facility]) Body height 72 [in_i] 72 [in_i] HILDA ([facility]) Body mass index (BMI) [Ratio] 30.3 kg/m2 30.3 k g/m2 HILDA ([facility]) Systolic blood pressure 128 mm[Hg] 128 mm[Hg] [facility] Body weight 3574.4 [oz_av] 3574.4 [oz_av] ATHEN A ([facility]) Diastolic blood pressure 81 mm[Hg] 81 mm[Hg] HILDA ([facility]) Body height 72 [in_i] 72 [in_i] HILDA ([facility]) Body mass index (BMI) [Ratio] 30.3 kg/m2 30.3 k g/m2 HILDA ([facility]) Systolic blood pressure 128 mm[Hg] 128 mm[Hg] A [facility] ([facility]) Body weight 3574.4 [oz_av] 3574.4 [oz_av] ATHEN A ([facility]) Diastolic blood pressure 81 mm[Hg] 81 mm[Hg] HILDA ([facility]) Body height 72 [in_i] 72 [in_i] HILDA ([facility]) Body mass index (BMI) [Ratio] 30.3 kg/m2 30.3 k g/m2 HILDA ([facility]) Systolic blood pressure 128 mm[Hg] 128 mm[Hg] A THENA ([facility]) Body weight 3574.4 [oz_av] 3574.4 [oz_av] ATHEN A ([facility]) Diastolic blood pressure 81 mm[Hg] 81 mm[Hg] HILDA ([facility]) Body height 72 [in_i] 72 [in_i] HILDA ([facility]) Body mass index (BMI) [Ratio] 30.3 kg/m2 30.3 k g/m2 HILDA ([facility]) Systolic blood pressure 128 mm[Hg] 128 mm[Hg] [facility] Body weight 3574.4 [oz_av] 3574.4 [oz_av] ATHEN A ([facility]) Diastolic blood pressure 82 mm[Hg] 82 mm[Hg] HILDA ([facility]) Diastolic blood pressure 81 mm[Hg] 81 mm[Hg] HILDA ([facility]) Body height 72 [in_i] 72 [in_i] HILDA ([facility]) Body mass index (BMI) [Ratio] 30.5 kg/m2 30.5 k g/m2 HILDA ([facility]) Systolic blood pressure 127 mm[Hg] 127 mm[Hg] A THENA ([facility]) Systolic blood pressure 145 mm[Hg] 145 mm[Hg] [facility] Body weight 3596.8 [oz_av] 3596.8 [oz_av] ATHEN A ([facility]) Diastolic blood pressure 82 mm[Hg] 82 mm[Hg] HILDA ([facility]) Diastolic blood pressure 81 mm[Hg] 81 mm[Hg] HILDA ([facility]) Body height 72 [in_i] 72 [in_i] HILDA ([facility]) Body mass index (BMI) [Ratio] 30.5 kg/m2 30.5 k g/m2 HILDA ([facility]) Systolic blood pressure 127 mm[Hg] 127 mm[Hg] A THENA ([facility]) Systolic blood pressure 145 mm[Hg] 145 mm[Hg] A THENA ([facility]) Body weight 3596.8 [oz_av] 3596.8 [oz_av] ATHEN A ([facility]) Diastolic blood pressure 82 mm[Hg] 82 mm[Hg] HILDA ([facility]) Diastolic blood pressure 81 mm[Hg] 81 mm[Hg] HILDA ([facility]) Body height 72 [in_i] 72 [in_i] HILDA ([facility]) Body mass index (BMI) [Ratio] 30.5 kg/m2 30.5 k g/m2 HILDA ([facility]) Systolic blood pressure 127 mm[Hg] 127 mm[Hg] A THENA ([facility]) Systolic blood pressure 145 mm[Hg] 145 mm[Hg] A THENA ([facility]) Body weight 3596.8 [oz_av] 3596.8 [oz_av] ATHEN A ([facility]) Diastolic blood pressure 82 mm[Hg] 82 mm[Hg] HILDA ([facility]) Diastolic blood pressure 81 mm[Hg] 81 mm[Hg] HILDA ([facility]) Body height 72 [in_i] 72 [in_i] HILDA ([facility]) Body mass index (BMI) [Ratio] 30.5 kg/m2 30.5 k g/m2 HILDA ([facility]) Systolic blood pressure 127 mm[Hg] 127 mm[Hg] A THENA ([facility]) Systolic blood pressure 145 mm[Hg] 145 mm[Hg] A THENA ([facility]) Body weight 3596.8 [oz_av] 3596.8 [oz_av] ATHEN A ([facility]) Diastolic blood pressure 82 mm[Hg] 82 mm[Hg] HILDA ([facility]) Diastolic blood pressure 81 mm[Hg] 81 mm[Hg] HILDA ([facility]) Body height 72 [in_i] 72 [in_i] HILDA ([facility]) Body mass index (BMI) [Ratio] 30.5 kg/m2 30.5 k g/m2 HILDA ([facility]) Systolic blood pressure 127 mm[Hg] 127 mm[Hg] A THENA ([facility]) Systolic blood pressure 145 mm[Hg] 145 mm[Hg] A THENA ([facility]) Body weight 3596.8 [oz_av] 3596.8 [oz_av] ATHEN A ([facility]) Diastolic blood pressure 82 mm[Hg] 82 mm[Hg] HILDA ([facility]) Body height 72 [in_i] 72 [in_i] HILDA ([facility]) Body mass index (BMI) [Ratio] 30.5 kg/m2 30.5 k g/m2 HILDA ([facility]) Systolic blood pressure 127 mm[Hg] 127 mm[Hg] A THENA ([facility]) Systolic blood pressure 145 mm[Hg] 145 mm[Hg] A THENA ([facility]) Body weight 3596.8 [oz_av] 3596.8 [oz_av] ATHEN A ([facility]) Diastolic blood pressure 81 mm[Hg] 81 mm[Hg] HILDA ([facility]) Diastolic blood pressure 82 mm[Hg] 82 mm[Hg] HILDA ([facility]) Diastolic blood pressure 81 mm[Hg] 81 mm[Hg] HILDA ([facility]) Body height 72 [in_i] 72 [in_i] HILDA ([facility]) Body mass index (BMI) [Ratio] 30.5 kg/m2 30.5 k g/m2 HILDA ([facility]) Systolic blood pressure 127 mm[Hg] 127 mm[Hg] [facility] Systolic blood pressure 145 mm[Hg] 145 mm[Hg] [facility] Body weight 3596.8 [oz_av] 3596.8 [oz_av] ATHEN A ([facility]) Diastolic blood pressure 82 mm[Hg] 82 mm[Hg] HILDA ([facility]) Diastolic blood pressure 81 mm[Hg] 81 mm[Hg] HILDA ([facility]) Body height 72 [in_i] 72 [in_i] HILDA ([facility]) Body mass index (BMI) [Ratio] 30.5 kg/m2 30.5 k g/m2 HILDA ([facility]) Systolic blood pressure 127 mm[Hg] 127 mm[Hg] A THENA ([facility]) Systolic blood pressure 145 mm[Hg] 145 mm[Hg] A THENA ([facility]) Body weight 3596.8 [oz_av] 3596.8 [oz_av] ATHEN A ([facility]) Systolic blood pressure 145 mm[Hg] 145 mm[Hg] A THENA ([facility]) Diastolic blood pressure 82 mm[Hg] 82 mm[Hg] HILDA ([facility]) Diastolic blood pressure 81 mm[Hg] 81 mm[Hg] HILDA ([facility]) Body weight 3596.8 [oz_av] 3596.8 [oz_av] ATHEN A ([facility]) Body height 72 [in_i] 72 [in_i] HILDA ([facility]) Body mass index (BMI) [Ratio] 30.5 kg/m2 30.5 k g/m2 HILDA ([facility]) Systolic blood pressure 127 mm[Hg] 127 mm[Hg] [facility] Diastolic blood pressure 81 mm[Hg] 81 mm[Hg] HILDA ([facility]) Body height 72 [in_i] 72 [in_i] HILDA ([facility]) Body mass index (BMI) [Ratio] 30.5 kg/m2 30.5 k g/m2 HILDA ([facility]) Systolic blood pressure 127 mm[Hg] 127 mm[Hg] A THENA ([facility]) Systolic blood pressure 145 mm[Hg] 145 mm[Hg] A [facility] ([facility]) Body weight 3596.8 [oz_av] 3596.8 [oz_av] ATHEN A ([facility]) Diastolic blood pressure 82 mm[Hg] 82 mm[Hg] HILDA ([facility]) Diastolic blood pressure 82 mm[Hg] 82 mm[Hg] HILDA ([facility]) Diastolic blood pressure 81 mm[Hg] 81 mm[Hg] HILDA ([facility]) Body height 72 [in_i] 72 [in_i] HILDA ([facility]) Body mass index (BMI) [Ratio] 30.5 kg/m2 30.5 k g/m2 HILDA ([facility]) Systolic blood pressure 127 mm[Hg] 127 mm[Hg] A THENA ([facility]) Systolic blood pressure 145 mm[Hg] 145 mm[Hg] A THENA ([facility]) Body weight 3596.8 [oz_av] 3596.8 [oz_av] ATHEN A ([facility]) Diastolic blood pressure 82 mm[Hg] 82 mm[Hg] HILDA ([facility]) Diastolic blood pressure 81 mm[Hg] 81 mm[Hg] HILDA ([facility]) Body height 72 [in_i] 72 [in_i] HILDA ([facility]) Body mass index (BMI) [Ratio] 30.5 kg/m2 30.5 k g/m2 HILDA ([facility]) Systolic blood pressure 127 mm[Hg] 127 mm[Hg] A THENA ([facility]) Systolic blood pressure 145 mm[Hg] 145 mm[Hg] [facility] Body weight 3596.8 [oz_av] 3596.8 [oz_av] ATHEN A ([facility]) Diastolic blood pressure 82 mm[Hg] 82 mm[Hg] HILDA ([facility]) Diastolic blood pressure 81 mm[Hg] 81 mm[Hg] HILDA ([facility]) Diastolic blood pressure 82 mm[Hg] 82 mm[Hg] HILDA ([facility]) Diastolic blood pressure 81 mm[Hg] 81 mm[Hg] HILDA ([facility]) Body height 72 [in_i] 72 [in_i] HILDA ([facility]) Body mass index (BMI) [Ratio] 30.5 kg/m2 30.5 k g/m2 HILDA ([facility]) Systolic blood pressure 127 mm[Hg] 127 mm[Hg] A THENA ([facility]) Systolic blood pressure 145 mm[Hg] 145 mm[Hg] A THENA ([facility]) Body weight 3596.8 [oz_av] 3596.8 [oz_av] ATHEN A ([facility]) Body height 72 [in_i] 72 [in_i] HILDA ([facility]) Body mass index (BMI) [Ratio] 30.5 kg/m2 30.5 k g/m2 HILDA ([facility]) Systolic blood pressure 127 mm[Hg] 127 mm[Hg] A THENA ([facility]) Systolic blood pressure 145 mm[Hg] 145 mm[Hg] A THENA ([facility]) Body weight 3596.8 [oz_av] 3596.8 [oz_av] ATHEN A ([facility]) Diastolic blood pressure 82 mm[Hg] 82 mm[Hg] HILDA ([facility]) Diastolic blood pressure 81 mm[Hg] 81 mm[Hg] HILDA ([facility]) Body height 72 [in_i] 72 [in_i] HILDA ([facility]) Body mass index (BMI) [Ratio] 30.5 kg/m2 30.5 k g/m2 HILDA ([facility]) Systolic blood pressure 127 mm[Hg] 127 mm[Hg] [facility] Systolic blood pressure 145 mm[Hg] 145 mm[Hg] [facility] Body weight 3596.8 [oz_av] 3596.8 [oz_av] ATHEN A ([facility]) Diastolic blood pressure 82 mm[Hg] 82 mm[Hg] HILDA ([facility]) Diastolic blood pressure 81 mm[Hg] 81 mm[Hg] HILDA ([facility]) Body height 72 [in_i] 72 [in_i] HILDA ([facility]) Body mass index (BMI) [Ratio] 30.5 kg/m2 30.5 k g/m2 HILDA ([facility]) Systolic blood pressure 127 mm[Hg] 127 mm[Hg] A THENA ([facility]) Systolic blood pressure 145 mm[Hg] 145 mm[Hg] [facility] Body weight 3596.8 [oz_av] 3596.8 [oz_av] ATHEN A ([facility]) Body weight 3596.8 [oz_av] 3596.8 [oz_av] ATHEN A ([facility]) Diastolic blood pressure 82 mm[Hg] 82 mm[Hg] HILDA ([facility]) Diastolic blood pressure 81 mm[Hg] 81 mm[Hg] HILDA ([facility]) Body height 72 [in_i] 72 [in_i] HILDA ([facility]) Body mass index (BMI) [Ratio] 30.5 kg/m2 30.5 k g/m2 HILDA ([facility]) Systolic blood pressure 127 mm[Hg] 127 mm[Hg] A THENA ([facility]) Systolic blood pressure 145 mm[Hg] 145 mm[Hg] [facility] Diastolic blood pressure 82 mm[Hg] 82 mm[Hg] HILDA ([facility]) Diastolic blood pressure 81 mm[Hg] 81 mm[Hg] HILDA ([facility]) Body height 72 [in_i] 72 [in_i] HILDA ([facility]) Body mass index (BMI) [Ratio] 30.5 kg/m2 30.5 k g/m2 HILDA ([facility]) Systolic blood pressure 127 mm[Hg] 127 mm[Hg] [facility] Systolic blood pressure 145 mm[Hg] 145 mm[Hg] [facility] Body weight 3596.8 [oz_av] 3596.8 [oz_av] ATHEN A ([facility]) Diastolic blood pressure 82 mm[Hg] 82 mm[Hg] HILDA ([facility]) Diastolic blood pressure 81 mm[Hg] 81 mm[Hg] HILDA ([facility]) Body height 72 [in_i] 72 [in_i] HILDA ([facility]) Body mass index (BMI) [Ratio] 30.5 kg/m2 30.5 k g/m2 HILDA ([facility]) Systolic blood pressure 127 mm[Hg] 127 mm[Hg] A THENA ([facility]) Systolic blood pressure 145 mm[Hg] 145 mm[Hg] A THENA ([facility]) Body weight 3596.8 [oz_av] 3596.8 [oz_av] ATHEN A ([facility]) Body height 72 [in_i] 72 [in_i] HILDA ([facility]) Body mass index (BMI) [Ratio] 30.5 kg/m2 30.5 k g/m2 HILDA ([facility]) Systolic blood pressure 127 mm[Hg] 127 mm[Hg] A THENA ([facility]) Systolic blood pressure 145 mm[Hg] 145 mm[Hg] A THENA ([facility]) Body weight 3596.8 [oz_av] 3596.8 [oz_av] ATHEN A ([facility]) Diastolic blood pressure 82 mm[Hg] 82 mm[Hg] HILDA ([facility]) Diastolic blood pressure 81 mm[Hg] 81 mm[Hg] HILDA ([facility]) Diastolic blood pressure 82 mm[Hg] 82 mm[Hg] HILDA ([facility]) Diastolic blood pressure 81 mm[Hg] 81 mm[Hg] HILDA ([facility]) Body height 72 [in_i] 72 [in_i] HILDA ([facility]) Body mass index (BMI) [Ratio] 30.5 kg/m2 30.5 k g/m2 HILDA ([facility]) Systolic blood pressure 127 mm[Hg] 127 mm[Hg] A THENA ([facility]) Systolic blood pressure 145 mm[Hg] 145 mm[Hg] A THENA ([facility]) Body weight 3596.8 [oz_av] 3596.8 [oz_av] ATHEN A ([facility]) Body weight 3596.8 [oz_av] 3596.8 [oz_av] ATHEN A ([facility]) Systolic blood pressure 127 mm[Hg] 127 mm[Hg] A THENA ([facility]) Systolic blood pressure 145 mm[Hg] 145 mm[Hg] A THENA ([facility]) Body weight 3596.8 [oz_av] 3596.8 [oz_av] ATHEN A ([facility]) Diastolic blood pressure 82 mm[Hg] 82 mm[Hg] HILDA ([facility]) Diastolic blood pressure 81 mm[Hg] 81 mm[Hg] HILDA ([facility]) Body height 72 [in_i] 72 [in_i] HILDA ([facility]) Body mass index (BMI) [Ratio] 30.5 kg/m2 30.5 k g/m2 HILDA ([facility]) Systolic blood pressure 127 mm[Hg] 127 mm[Hg] A THENA ([facility]) Systolic blood pressure 145 mm[Hg] 145 mm[Hg] A THENA ([facility]) Diastolic blood pressure 82 mm[Hg] 82 mm[Hg] HILDA ([facility]) Diastolic blood pressure 81 mm[Hg] 81 mm[Hg] HILDA ([facility]) Body height 72 [in_i] 72 [in_i] HILDA ([facility]) Body mass index (BMI) [Ratio] 30.5 kg/m2 30.5 k g/m2 HILDA ([facility]) Diastolic blood pressure 82 mm[Hg] 82 mm[Hg] HILDA ([facility]) Diastolic blood pressure 81 mm[Hg] 81 mm[Hg] HILDA ([facility]) Body height 72 [in_i] 72 [in_i] HILDA ([facility]) Body mass index (BMI) [Ratio] 30.5 kg/m2 30.5 k g/m2 HILDA ([facility]) Systolic blood pressure 127 mm[Hg] 127 mm[Hg] A THENA ([facility]) Systolic blood pressure 145 mm[Hg] 145 mm[Hg] [facility] Body weight 3596.8 [oz_av] 3596.8 [oz_av] ATHEN A ([facility]) Diastolic blood pressure 82 mm[Hg] 82 mm[Hg] HILDA ([facility]) Diastolic blood pressure 81 mm[Hg] 81 mm[Hg] HILDA ([facility]) Body height 72 [in_i] 72 [in_i] HILDA ([facility]) Body mass index (BMI) [Ratio] 30.5 kg/m2 30.5 k g/m2 HILDA ([facility]) Systolic blood pressure 127 mm[Hg] 127 mm[Hg] A THENA ([facility]) Systolic blood pressure 145 mm[Hg] 145 mm[Hg] [facility] Body weight 3596.8 [oz_av] 3596.8 [oz_av] ATHEN A ([facility]) Diastolic blood pressure 82 mm[Hg] 82 mm[Hg] HILDA ([facility]) Diastolic blood pressure 81 mm[Hg] 81 mm[Hg] HILDA ([facility]) Body height 72 [in_i] 72 [in_i] HILDA ([facility]) Body mass index (BMI) [Ratio] 30.5 kg/m2 30.5 k g/m2 HILDA ([facility]) Systolic blood pressure 127 mm[Hg] 127 mm[Hg] A THENA ([facility]) Systolic blood pressure 145 mm[Hg] 145 mm[Hg] A THENA ([facility]) Body weight 3596.8 [oz_av] 3596.8 [oz_av] ATHEN A ([facility]) Diastolic blood pressure 82 mm[Hg] 82 mm[Hg] HILDA ([facility]) Diastolic blood pressure 81 mm[Hg] 81 mm[Hg] HILDA ([facility]) Body height 72 [in_i] 72 [in_i] HILDA ([facility]) Body mass index (BMI) [Ratio] 30.5 kg/m2 30.5 k g/m2 HILDA ([facility]) Systolic blood pressure 127 mm[Hg] 127 mm[Hg] A THENA ([facility]) Systolic blood pressure 145 mm[Hg] 145 mm[Hg] A THENA ([facility]) Body weight 3596.8 [oz_av] 3596.8 [oz_av] ATHEN A ([facility]) Respiratory rate 16 /min 16 /min MEDENT ( [facility]) Body weight 222.00 [lb_av] 222.00 [lb_av] MEDEN T ([facility]) Body height 72 [in_i] 72 [in_i] MEDENT ([facility]) 6'0" Body mass index (BMI) [Ratio] 30.1 kg/m2 30.1 k g/m2 MEDENT ([facility]) Heart rate 52 /min 52 /min [facility] ([facility]) regular Systolic blood pressure--sitting 108 mm[Hg] 108 mm[Hg] MEDENT ([facility]) large cuff, Ra; 110/72 LA Diastolic blood pressure--sitting 68 mm[Hg] 68 mm[Hg] MEDENT ([facility]) large cuff, Ra; 110/72 LA Systolic blood pressure--supine 108 mm[Hg] 108 mm[Hg] MEDENT ([facility]) Ra Diastolic blood pressure--supine 68 mm[Hg] 68 mm[Hg] MEDENT ([facility]) Ra Body height 72 [in_i] 72 [in_i] HILDA ([facility]) Diastolic blood pressure 81 mm[Hg] 81 mm[Hg] HILDA ([facility]) Body mass index (BMI) [Ratio] 30.2 kg/m2 30.2 k g/m2 HILDA ([facility]) Systolic blood pressure 120 mm[Hg] 120 mm[Hg] A THENA ([facility]) Body weight 3568 [oz_av] 3568 [oz_av] HILDA ([facility]) Diastolic blood pressure 81 mm[Hg] 81 mm[Hg] HILDA ([facility]) Body height 72 [in_i] 72 [in_i] HILDA ([facility]) Body mass index (BMI) [Ratio] 30.2 kg/m2 30.2 k g/m2 HILDA ([facility]) Systolic blood pressure 120 mm[Hg] 120 mm[Hg] A THENA ([facility]) Body weight 3568 [oz_av] 3568 [oz_av] HILDA ([facility]) Diastolic blood pressure 81 mm[Hg] 81 mm[Hg] HILDA ([facility]) Body height 72 [in_i] 72 [in_i] HILDA ([facility]) Body mass index (BMI) [Ratio] 30.2 kg/m2 30.2 k g/m2 HILDA ([facility]) Systolic blood pressure 120 mm[Hg] 120 mm[Hg] A THENA ([facility]) Body weight 3568 [oz_av] 3568 [oz_av] HILDA ([facility]) Diastolic blood pressure 81 mm[Hg] 81 mm[Hg] HILDA ([facility]) Body height 72 [in_i] 72 [in_i] HILDA ([facility]) Body mass index (BMI) [Ratio] 30.2 kg/m2 30.2 k g/m2 HILDA ([facility]) Systolic blood pressure 120 mm[Hg] 120 mm[Hg] A THENA ([facility]) Body weight 3568 [oz_av] 3568 [oz_av] HILDA ([facility]) Diastolic blood pressure 81 mm[Hg] 81 mm[Hg] HILDA ([facility]) Body height 72 [in_i] 72 [in_i] HILDA ([facility]) Body mass index (BMI) [Ratio] 30.2 kg/m2 30.2 k g/m2 HILDA ([facility]) Systolic blood pressure 120 mm[Hg] 120 mm[Hg] A THENA ([facility]) Body weight 3568 [oz_av] 3568 [oz_av] HILDA ([facility]) Diastolic blood pressure 81 mm[Hg] 81 mm[Hg] HILDA ([facility]) Body height 72 [in_i] 72 [in_i] HILDA ([facility]) Body mass index (BMI) [Ratio] 30.2 kg/m2 30.2 k g/m2 HILDA ([facility]) Systolic blood pressure 120 mm[Hg] 120 mm[Hg] A THENA ([facility]) Body weight 3568 [oz_av] 3568 [oz_av] HILDA ([facility]) Diastolic blood pressure 81 mm[Hg] 81 mm[Hg] HILDA ([facility]) Body height 72 [in_i] 72 [in_i] HILDA ([facility]) Body mass index (BMI) [Ratio] 30.2 kg/m2 30.2 k g/m2 HILDA ([facility]) Systolic blood pressure 120 mm[Hg] 120 mm[Hg] A THENA ([facility]) Body weight 3568 [oz_av] 3568 [oz_av] HILDA ([facility]) Diastolic blood pressure 81 mm[Hg] 81 mm[Hg] HILDA ([facility]) Body height 72 [in_i] 72 [in_i] HILDA ([facility]) Body mass index (BMI) [Ratio] 30.2 kg/m2 30.2 k g/m2 HILDA ([facility]) Systolic blood pressure 120 mm[Hg] 120 mm[Hg] A THENA ([facility]) Body weight 3568 [oz_av] 3568 [oz_av] HILDA ([facility]) Diastolic blood pressure 81 mm[Hg] 81 mm[Hg] HILDA ([facility]) Body height 72 [in_i] 72 [in_i] HILDA ([facility]) Body mass index (BMI) [Ratio] 30.2 kg/m2 30.2 k g/m2 HILDA ([facility]) Systolic blood pressure 120 mm[Hg] 120 mm[Hg] A THENA ([facility]) Body weight 3568 [oz_av] 3568 [oz_av] HILDA ([facility]) Diastolic blood pressure 81 mm[Hg] 81 mm[Hg] HILDA ([facility]) Body height 72 [in_i] 72 [in_i] HILDA ([facility]) Body mass index (BMI) [Ratio] 30.2 kg/m2 30.2 k g/m2 HILDA ([facility]) Systolic blood pressure 120 mm[Hg] 120 mm[Hg] A THENA ([facility]) Body weight 3568 [oz_av] 3568 [oz_av] HILDA ([facility]) Diastolic blood pressure 81 mm[Hg] 81 mm[Hg] HILDA ([facility]) Body height 72 [in_i] 72 [in_i] HILDA ([facility]) Body mass index (BMI) [Ratio] 30.2 kg/m2 30.2 k g/m2 HILDA ([facility]) Systolic blood pressure 120 mm[Hg] 120 mm[Hg] A THENA ([facility]) Body weight 3568 [oz_av] 3568 [oz_av] HILDA ([facility]) Diastolic blood pressure 81 mm[Hg] 81 mm[Hg] HILDA ([facility]) Body height 72 [in_i] 72 [in_i] HILDA ([facility]) Body mass index (BMI) [Ratio] 30.2 kg/m2 30.2 k g/m2 HILDA ([facility]) Systolic blood pressure 120 mm[Hg] 120 mm[Hg] A THENA ([facility]) Body weight 3568 [oz_av] 3568 [oz_av] HILDA ([facility]) Diastolic blood pressure 81 mm[Hg] 81 mm[Hg] HILDA ([facility]) Body height 72 [in_i] 72 [in_i] HILDA ([facility]) Body mass index (BMI) [Ratio] 30.2 kg/m2 30.2 k g/m2 HILDA ([facility]) Systolic blood pressure 120 mm[Hg] 120 mm[Hg] A THENA ([facility]) Body weight 3568 [oz_av] 3568 [oz_av] HILDA ([facility]) Diastolic blood pressure 81 mm[Hg] 81 mm[Hg] HILDA ([facility]) Body height 72 [in_i] 72 [in_i] HILDA ([facility]) Body mass index (BMI) [Ratio] 30.2 kg/m2 30.2 k g/m2 HILDA ([facility]) Systolic blood pressure 120 mm[Hg] 120 mm[Hg] A THENA ([facility]) Body weight 3568 [oz_av] 3568 [oz_av] HILDA ([facility]) Diastolic blood pressure 81 mm[Hg] 81 mm[Hg] HILDA ([facility]) Body height 72 [in_i] 72 [in_i] HILDA ([facility]) Body mass index (BMI) [Ratio] 30.2 kg/m2 30.2 k g/m2 HILDA ([facility]) Systolic blood pressure 120 mm[Hg] 120 mm[Hg] A THENA ([facility]) Body weight 3568 [oz_av] 3568 [oz_av] HILDA ([facility]) Diastolic blood pressure 81 mm[Hg] 81 mm[Hg] HILDA ([facility]) Body height 72 [in_i] 72 [in_i] HILDA ([facility]) Body mass index (BMI) [Ratio] 30.2 kg/m2 30.2 k g/m2 HILDA ([facility]) Systolic blood pressure 120 mm[Hg] 120 mm[Hg] A THENA ([facility]) Body weight 3568 [oz_av] 3568 [oz_av] HILDA ([facility]) Diastolic blood pressure 81 mm[Hg] 81 mm[Hg] HILDA ([facility]) Body height 72 [in_i] 72 [in_i] HILDA ([facility]) Body mass index (BMI) [Ratio] 30.2 kg/m2 30.2 k g/m2 HILDA ([facility]) Systolic blood pressure 120 mm[Hg] 120 mm[Hg] [facility] Body weight 3568 [oz_av] 3568 [oz_av] HILDA ([facility]) Diastolic blood pressure 81 mm[Hg] 81 mm[Hg] HILDA ([facility]) Body height 72 [in_i] 72 [in_i] HILDA ([facility]) Body mass index (BMI) [Ratio] 30.2 kg/m2 30.2 k g/m2 HILDA ([facility]) Systolic blood pressure 120 mm[Hg] 120 mm[Hg] [facility] Body weight 3568 [oz_av] 3568 [oz_av] HILDA ([facility]) Diastolic blood pressure 81 mm[Hg] 81 mm[Hg] HILDA ([facility]) Body height 72 [in_i] 72 [in_i] HILDA ([facility]) Body mass index (BMI) [Ratio] 30.2 kg/m2 30.2 k g/m2 HILDA ([facility]) Systolic blood pressure 120 mm[Hg] 120 mm[Hg] A THENA ([facility]) Body weight 3568 [oz_av] 3568 [oz_av] HILDA ([facility]) Diastolic blood pressure 81 mm[Hg] 81 mm[Hg] HILDA ([facility]) Body height 72 [in_i] 72 [in_i] HILDA ([facility]) Body mass index (BMI) [Ratio] 30.2 kg/m2 30.2 k g/m2 HILDA ([facility]) Systolic blood pressure 120 mm[Hg] 120 mm[Hg] [facility] Diastolic blood pressure 81 mm[Hg] 81 mm[Hg] HILDA ([facility]) Body height 72 [in_i] 72 [in_i] HILDA ([facility]) Body mass index (BMI) [Ratio] 30.2 kg/m2 30.2 k g/m2 HILDA ([facility]) Systolic blood pressure 120 mm[Hg] 120 mm[Hg] [facility] Body weight 3568 [oz_av] 3568 [oz_av] HILDA ([facility]) Diastolic blood pressure 81 mm[Hg] 81 mm[Hg] HILDA ([facility]) Body height 72 [in_i] 72 [in_i] HILDA ([facility]) Body mass index (BMI) [Ratio] 30.2 kg/m2 30.2 k g/m2 HILDA ([facility]) Systolic blood pressure 120 mm[Hg] 120 mm[Hg] [facility] Body weight 3568 [oz_av] 3568 [oz_av] HILDA ([facility]) Body weight 3568 [oz_av] 3568 [oz_av] HILDA ([facility]) Diastolic blood pressure 81 mm[Hg] 81 mm[Hg] HILDA ([facility]) Body height 72 [in_i] 72 [in_i] HILDA ([facility]) Body mass index (BMI) [Ratio] 30.2 kg/m2 30.2 k g/m2 HILDA ([facility]) Systolic blood pressure 120 mm[Hg] 120 mm[Hg] A THENA ([facility]) Body weight 3568 [oz_av] 3568 [oz_av] HILDA ([facility]) Diastolic blood pressure 81 mm[Hg] 81 mm[Hg] HILDA ([facility]) Body height 72 [in_i] 72 [in_i] HILDA ([facility]) Body mass index (BMI) [Ratio] 30.2 kg/m2 30.2 k g/m2 HILDA ([facility]) Systolic blood pressure 120 mm[Hg] 120 mm[Hg] A THENA ([facility]) Body weight 3568 [oz_av] 3568 [oz_av] HILDA ([facility]) Diastolic blood pressure 81 mm[Hg] 81 mm[Hg] HILDA ([facility]) Body height 72 [in_i] 72 [in_i] HILDA ([facility]) Body mass index (BMI) [Ratio] 30.2 kg/m2 30.2 k g/m2 HILDA ([facility]) Systolic blood pressure 120 mm[Hg] 120 mm[Hg] [facility] Body weight 3568 [oz_av] 3568 [oz_av] HILDA ([facility]) Systolic blood pressure 120 mm[Hg] 120 mm[Hg] A THENA ([facility]) Body weight 3568 [oz_av] 3568 [oz_av] HILDA ([facility]) Diastolic blood pressure 81 mm[Hg] 81 mm[Hg] HILDA ([facility]) Body height 72 [in_i] 72 [in_i] HILDA ([facility]) Body mass index (BMI) [Ratio] 30.2 kg/m2 30.2 k g/m2 HILDA ([facility]) Body mass index (BMI) [Ratio] 30.2 kg/m2 30.2 k g/m2 HILDA ([facility]) Systolic blood pressure 120 mm[Hg] 120 mm[Hg] [facility] Body weight 3568 [oz_av] 3568 [oz_av] HILDA ([facility]) Diastolic blood pressure 81 mm[Hg] 81 mm[Hg] HILDA ([facility]) Body height 72 [in_i] 72 [in_i] HILDA ([facility]) Diastolic blood pressure 81 mm[Hg] 81 mm[Hg] HILDA ([facility]) Body height 72 [in_i] 72 [in_i] HILDA ([facility]) Body mass index (BMI) [Ratio] 30.2 kg/m2 30.2 k g/m2 HILDA ([facility]) Systolic blood pressure 120 mm[Hg] 120 mm[Hg] [facility] Body weight 3568 [oz_av] 3568 [oz_av] HILDA ([facility]) Diastolic blood pressure 81 mm[Hg] 81 mm[Hg] HILDA ([facility]) Body height 72 [in_i] 72 [in_i] HILDA ([facility]) Body mass index (BMI) [Ratio] 30.2 kg/m2 30.2 k g/m2 HILDA ([facility]) Systolic blood pressure 120 mm[Hg] 120 mm[Hg] A THENA ([facility]) Body weight 3568 [oz_av] 3568 [oz_av] HILDA ([facility]) Diastolic blood pressure 81 mm[Hg] 81 mm[Hg] HILDA ([facility]) Body height 72 [in_i] 72 [in_i] HILDA ([facility]) Body mass index (BMI) [Ratio] 30.2 kg/m2 30.2 k g/m2 HILDA ([facility]) Systolic blood pressure 120 mm[Hg] 120 mm[Hg] A THENA ([facility]) Body weight 3568 [oz_av] 3568 [oz_av] HILDA ([facility]) Diastolic blood pressure 81 mm[Hg] 81 mm[Hg] HILDA ([facility]) Body height 72 [in_i] 72 [in_i] HILDA ([facility]) Body mass index (BMI) [Ratio] 30.2 kg/m2 30.2 k g/m2 HILDA ([facility]) Systolic blood pressure 120 mm[Hg] 120 mm[Hg] A THENA ([facility]) Body weight 3568 [oz_av] 3568 [oz_av] HILDA ([facility]) Diastolic blood pressure 81 mm[Hg] 81 mm[Hg] HILDA ([facility]) Body height 72 [in_i] 72 [in_i] HILDA ([facility]) Body mass index (BMI) [Ratio] 30.2 kg/m2 30.2 k g/m2 HILDA ([facility]) Systolic blood pressure 120 mm[Hg] 120 mm[Hg] A THENA ([facility]) Body weight 3568 [oz_av] 3568 [oz_av] HILDA ([facility]) Diastolic blood pressure 81 mm[Hg] 81 mm[Hg] HILDA ([facility]) Body height 72 [in_i] 72 [in_i] HILDA ([facility]) Body mass index (BMI) [Ratio] 30.2 kg/m2 30.2 k g/m2 HILDA ([facility]) Systolic blood pressure 120 mm[Hg] 120 mm[Hg] A LUISA ([facility]) Body weight 3568 [oz_av] 3568 [oz_av] HILDA ([facility]) Diastolic blood pressure 86 mm[Hg] 86 mm[Hg] HILDA ([facility]) Body height 72 [in_i] 72 [in_i] HILDA ([facility]) Body mass index (BMI) [Ratio] 30.4 kg/m2 30.4 k g/m2 HILDA ([facility]) Systolic blood pressure 130 mm[Hg] 130 mm[Hg] A LUISA ([facility]) Body weight 3587.2 [oz_av] 3587.2 [oz_av] ATHEN A ([facility]) Diastolic blood pressure 86 mm[Hg] 86 mm[Hg] HILDA ([facility]) Body height 72 [in_i] 72 [in_i] HILDA ([facility]) Body mass index (BMI) [Ratio] 30.4 kg/m2 30.4 k g/m2 HILDA ([facility]) Systolic blood pressure 130 mm[Hg] 130 mm[Hg] A LUISA ([facility]) Body weight 3587.2 [oz_av] 3587.2 [oz_av] ATHEN A ([facility]) Diastolic blood pressure 86 mm[Hg] 86 mm[Hg] HILDA ([facility]) Body height 72 [in_i] 72 [in_i] HILDA ([facility]) Body mass index (BMI) [Ratio] 30.4 kg/m2 30.4 k g/m2 HILDA ([facility]) Systolic blood pressure 130 mm[Hg] 130 mm[Hg] A THENA ([facility]) Body weight 3587.2 [oz_av] 3587.2 [oz_av] ATHEN A ([facility]) Diastolic blood pressure 86 mm[Hg] 86 mm[Hg] HILDA ([facility]) Body height 72 [in_i] 72 [in_i] HILDA ([facility]) Body mass index (BMI) [Ratio] 30.4 kg/m2 30.4 k g/m2 HILDA ([facility]) Systolic blood pressure 130 mm[Hg] 130 [facility]Hg[facility] Body weight 3587.2 [oz_av] 3587.2 [oz_av] ATHEN A ([facility]) Diastolic blood pressure 86 mm[Hg] 86 mm[Hg] HILDA ([facility]) Body mass index (BMI) [Ratio] 30.4 kg/m2 30.4 k g/m2 HILDA ([facility]) Systolic blood pressure 130 mm[Hg] 130 mm[Hg] [facility] Body weight 3587.2 [oz_av] 3587.2 [oz_av] ATHEN A ([facility]) Body height 72 [in_i] 72 [in_i] HILDA ([facility]) Diastolic blood pressure 86 mm[Hg] 86 mm[Hg] HILDA ([facility]) Body height 72 [in_i] 72 [in_i] HILDA ([facility]) Body mass index (BMI) [Ratio] 30.4 kg/m2 30.4 k g/m2 HILDA ([facility]) Systolic blood pressure 130 mm[Hg] 130 mm[Hg] A THENA ([facility]) Body weight 3587.2 [oz_av] 3587.2 [oz_av] ATHEN A ([facility]) Diastolic blood pressure 86 mm[Hg] 86 mm[Hg] HILDA ([facility]) Body height 72 [in_i] 72 [in_i] HILDA ([facility]) Body mass index (BMI) [Ratio] 30.4 kg/m2 30.4 k g/m2 HILDA ([facility]) Systolic blood pressure 130 mm[Hg] 130 mm[Hg] A THENA ([facility]) Body weight 3587.2 [oz_av] 3587.2 [oz_av] ATHEN A ([facility]) Body height 72 [in_i] 72 [in_i] HILDA ([facility]) Diastolic blood pressure 86 mm[Hg] 86 mm[Hg] HILDA ([facility]) Body mass index (BMI) [Ratio] 30.4 kg/m2 30.4 k g/m2 HILDA ([facility]) Systolic blood pressure 130 mm[Hg] 130 mm[Hg] A LUISA ([facility]) Body weight 3587.2 [oz_av] 3587.2 [oz_av] ATHEN A ([facility]) Diastolic blood pressure 86 mm[Hg] 86 mm[Hg] HILDA ([facility]) Body height 72 [in_i] 72 [in_i] HILDA ([facility]) Body mass index (BMI) [Ratio] 30.4 kg/m2 30.4 k g/m2 HILDA ([facility]) Systolic blood pressure 130 mm[Hg] 130 mm[Hg] [facility] Body weight 3587.2 [oz_av] 3587.2 [oz_av] ATHEN A ([facility]) Diastolic blood pressure 86 mm[Hg] 86 mm[Hg] HILDA ([facility]) Body height 72 [in_i] 72 [in_i] HILDA ([facility]) Body mass index (BMI) [Ratio] 30.4 kg/m2 30.4 k g/m2 HILDA ([facility]) Systolic blood pressure 130 mm[Hg] 130 mm[Hg] A MOIZ ([facility]) Body weight 3587.2 [oz_av] 3587.2 [oz_av] ATHEN A ([facility]) Diastolic blood pressure 86 mm[Hg] 86 mm[Hg] HILDA ([facility]) Body height 72 [in_i] 72 [in_i] HILDA ([facility]) Body mass index (BMI) [Ratio] 30.4 kg/m2 30.4 k g/m2 HILDA ([facility]) Systolic blood pressure 130 mm[Hg] 130 mm[Hg] [facility] Body weight 3587.2 [oz_av] 3587.2 [oz_av] ATHEN A ([facility]) Diastolic blood pressure 86 mm[Hg] 86 mm[Hg] HILDA ([facility]) Body height 72 [in_i] 72 [in_i] HILDA ([facility]) Body mass index (BMI) [Ratio] 30.4 kg/m2 30.4 k g/m2 HILDA ([facility]) Systolic blood pressure 130 mm[Hg] 130 mm[Hg] A [facility] ([facility]) Body weight 3587.2 [oz_av] 3587.2 [oz_av] ATHEN A ([facility]) Diastolic blood pressure 86 mm[Hg] 86 mm[Hg] HILDA ([facility]) Body height 72 [in_i] 72 [in_i] HILDA ([facility]) Body mass index (BMI) [Ratio] 30.4 kg/m2 30.4 k g/m2 HILDA ([facility]) Systolic blood pressure 130 mm[Hg] 130 mm[Hg] A [facility] ([facility]) Body weight 3587.2 [oz_av] 3587.2 [oz_av] ATHEN A ([facility]) Diastolic blood pressure 86 mm[Hg] 86 mm[Hg] HILDA ([facility]) Body height 72 [in_i] 72 [in_i] HILDA ([facility]) Body mass index (BMI) [Ratio] 30.4 kg/m2 30.4 k g/m2 HILDA ([facility]) Systolic blood pressure 130 mm[Hg] 130 mm[Hg] A [facility] ([facility]) Body weight 3587.2 [oz_av] 3587.2 [oz_av] ATHEN A ([facility]) Body mass index (BMI) [Ratio] 30.4 kg/m2 30.4 k g/m2 HILDA ([facility]) Systolic blood pressure 130 mm[Hg] 130 mm[Hg] A [facility] ([facility]) Body weight 3587.2 [oz_av] 3587.2 [oz_av] ATHEN A ([facility]) Diastolic blood pressure 86 mm[Hg] 86 mm[Hg] HILDA ([facility]) Body height 72 [in_i] 72 [in_i] HILDA ([facility]) Diastolic blood pressure 86 mm[Hg] 86 mm[Hg] HILDA ([facility]) Body height 72 [in_i] 72 [in_i] HILDA ([facility]) Body mass index (BMI) [Ratio] 30.4 kg/m2 30.4 k g/m2 HILDA ([facility]) Systolic blood pressure 130 mm[Hg] 130 mm[Hg] [facility] Body weight 3587.2 [oz_av] 3587.2 [oz_av] ATHEN A ([facility]) Diastolic blood pressure 86 mm[Hg] 86 mm[Hg] HILDA ([facility]) Body height 72 [in_i] 72 [in_i] HILDA ([facility]) Body mass index (BMI) [Ratio] 30.4 kg/m2 30.4 k g/m2 HILDA ([facility]) Systolic blood pressure 130 mm[Hg] 130 mm[Hg] [facility] Body weight 3587.2 [oz_av] 3587.2 [oz_av] ATHEN A ([facility]) Diastolic blood pressure 86 mm[Hg] 86 mm[Hg] HILDA ([facility]) Body height 72 [in_i] 72 [in_i] HILDA ([facility]) Body mass index (BMI) [Ratio] 30.4 kg/m2 30.4 k g/m2 HILDA ([facility]) Systolic blood pressure 130 mm[Hg] 130 mm[Hg] A THENA ([facility]) Body weight 3587.2 [oz_av] 3587.2 [oz_av] ATHEN A ([facility]) Diastolic blood pressure 86 mm[Hg] 86 mm[Hg] HILDA ([facility]) Body height 72 [in_i] 72 [in_i] HILDA ([facility]) Body mass index (BMI) [Ratio] 30.4 kg/m2 30.4 k g/m2 HILDA ([facility]) Systolic blood pressure 130 mm[Hg] 130 mm[Hg] A [facility] ([facility]) Body weight 3587.2 [oz_av] 3587.2 [oz_av] ATHEN A ([facility]) Diastolic blood pressure 86 mm[Hg] 86 mm[Hg] HILDA ([facility]) Body height 72 [in_i] 72 [in_i] HILDA ([facility]) Body mass index (BMI) [Ratio] 30.4 kg/m2 30.4 k g/m2 HILDA ([facility]) Systolic blood pressure 130 mm[Hg] 130 mm[Hg] [facility] Body weight 3587.2 [oz_av] 3587.2 [oz_av] ATHEN A ([facility]) Diastolic blood pressure 86 mm[Hg] 86 mm[Hg] HILDA ([facility]) Body height 72 [in_i] 72 [in_i] HILDA ([facility]) Body mass index (BMI) [Ratio] 30.4 kg/m2 30.4 k g/m2 HILDA ([facility]) Systolic blood pressure 130 mm[Hg] 130 mm[Hg] [facility] Body weight 3587.2 [oz_av] 3587.2 [oz_av] ATHEN A ([facility]) Diastolic blood pressure 86 mm[Hg] 86 mm[Hg] HILDA ([facility]) Body height 72 [in_i] 72 [in_i] HILDA ([facility]) Body mass index (BMI) [Ratio] 30.4 kg/m2 30.4 k g/m2 HILDA ([facility]) Systolic blood pressure 130 mm[Hg] 130 mm[Hg] A THENA ([facility]) Body weight 3587.2 [oz_av] 3587.2 [oz_av] ATHEN A ([facility]) Diastolic blood pressure 86 mm[Hg] 86 mm[Hg] HILDA ([facility]) Body height 72 [in_i] 72 [in_i] HILDA ([facility]) Body mass index (BMI) [Ratio] 30.4 kg/m2 30.4 k g/m2 HILDA ([facility]) Systolic blood pressure 130 mm[Hg] 130 mm[Hg] A [facility] ([facility]) Body weight 3587.2 [oz_av] 3587.2 [oz_av] ATHEN A ([facility]) Diastolic blood pressure 86 mm[Hg] 86 mm[Hg] HILDA ([facility]) Diastolic blood pressure 86 mm[Hg] 86 mm[Hg] HILDA ([facility]) Body height 72 [in_i] 72 [in_i] HILDA ([facility]) Body mass index (BMI) [Ratio] 30.4 kg/m2 30.4 k g/m2 HILDA ([facility]) Systolic blood pressure 130 mm[Hg] 130 mm[Hg] [facility] Body weight 3587.2 [oz_av] 3587.2 [oz_av] ATHEN A ([facility]) Body height 72 [in_i] 72 [in_i] HILDA ([facility]) Body mass index (BMI) [Ratio] 30.4 kg/m2 30.4 k g/m2 HILDA ([facility]) Systolic blood pressure 130 mm[Hg] 130 mm[Hg] [facility] Body weight 3587.2 [oz_av] 3587.2 [oz_av] ATHEN A ([facility]) Diastolic blood pressure 86 mm[Hg] 86 mm[Hg] HILDA ([facility]) Body height 72 [in_i] 72 [in_i] HILDA ([facility]) Body mass index (BMI) [Ratio] 30.4 kg/m2 30.4 k g/m2 HILDA ([facility]) Systolic blood pressure 130 mm[Hg] 130 mm[Hg] A THENA ([facility]) Body weight 3587.2 [oz_av] 3587.2 [oz_av] ATHEN A ([facility]) Diastolic blood pressure 86 mm[Hg] 86 mm[Hg] HILDA ([facility]) Body height 72 [in_i] 72 [in_i] HILDA ([facility]) Body mass index (BMI) [Ratio] 30.4 kg/m2 30.4 k g/m2 HILDA ([facility]) Systolic blood pressure 130 mm[Hg] 130 mm[Hg] A [facility] ([facility]) Body weight 3587.2 [oz_av] 3587.2 [oz_av] ATHEN A ([facility]) Systolic blood pressure 130 mm[Hg] 130 mm[Hg] [facility] Body weight 3587.2 [oz_av] 3587.2 [oz_av] ATHEN A ([facility]) Diastolic blood pressure 86 mm[Hg] 86 mm[Hg] HILDA ([facility]) Body height 72 [in_i] 72 [in_i] HILDA ([facility]) Body mass index (BMI) [Ratio] 30.4 kg/m2 30.4 k g/m2 HILDA ([facility]) Systolic blood pressure 130 mm[Hg] 130 mm[Hg] A [facility] ([facility]) Body weight 3587.2 [oz_av] 3587.2 [oz_av] ATHEN A ([facility]) Diastolic blood pressure 86 mm[Hg] 86 mm[Hg] HILDA ([facility]) Body height 72 [in_i] 72 [in_i] HILDA ([facility]) Body mass index (BMI) [Ratio] 30.4 kg/m2 30.4 k g/m2 HILDA ([facility]) Diastolic blood pressure 86 mm[Hg] 86 mm[Hg] HILDA ([facility]) Body height 72 [in_i] 72 [in_i] HILDA ([facility]) Body mass index (BMI) [Ratio] 30.4 kg/m2 30.4 k g/m2 HILDA ([facility]) Systolic blood pressure 130 mm[Hg] 130 mm[Hg] A [facility] ([facility]) Body weight 3587.2 [oz_av] 3587.2 [oz_av] ATHEN A ([facility]) Body height 72 [in_i] 72 [in_i] HILDA ([facility]) Body mass index (BMI) [Ratio] 30.4 kg/m2 30.4 k g/m2 HILDA ([facility]) Systolic blood pressure 130 mm[Hg] 130 mm[Hg] A [facility] ([facility]) Body weight 3587.2 [oz_av] 3587.2 [oz_av] ATHEN A ([facility]) Diastolic blood pressure 86 mm[Hg] 86 mm[Hg] HILDA ([facility]) Diastolic blood pressure 86 mm[Hg] 86 mm[Hg] HILDA ([facility]) Body height 72 [in_i] 72 [in_i] HILDA ([facility]) Body mass index (BMI) [Ratio] 30.4 kg/m2 30.4 k g/m2 HILDA ([facility]) Systolic blood pressure 130 mm[Hg] 130 mm[Hg] A THENA ([facility]) Body weight 3587.2 [oz_av] 3587.2 [oz_av] ATHEN A ([facility]) Diastolic blood pressure 86 mm[Hg] 86 mm[Hg] HILDA ([facility]) Body height 72 [in_i] 72 [in_i] HILDA ([facility]) Body mass index (BMI) [Ratio] 30.4 kg/m2 30.4 k g/m2 HILDA ([facility]) Systolic blood pressure 130 mm[Hg] 130 mm[Hg] A THENA ([facility]) Body weight 3587.2 [oz_av] 3587.2 [oz_av] ATHEN A ([facility]) Diastolic blood pressure 85 mm[Hg] 85 mm[Hg] HILDA ([facility]) Body mass index (BMI) [Ratio] 30.2 kg/m2 30.2 k g/m2 HILDA ([facility]) Body height 72 [in_i] 72 [in_i] HILDA ([facility]) Systolic blood pressure 130 mm[Hg] 130 mm[Hg] A THENA ([facility]) Body weight 3558 [oz_av] 3558 [oz_av] HILDA ([facility]) Diastolic blood pressure 85 mm[Hg] 85 mm[Hg] HILDA ([facility]) Body height 72 [in_i] 72 [in_i] HILDA ([facility]) Body mass index (BMI) [Ratio] 30.2 kg/m2 30.2 k g/m2 HILDA ([facility]) Systolic blood pressure 130 mm[Hg] 130 mm[Hg] [facility] Body weight 3558 [oz_av] 3558 [oz_av] HILDA ([facility]) Diastolic blood pressure 85 mm[Hg] 85 mm[Hg] HILDA ([facility]) Body height 72 [in_i] 72 [in_i] HILDA ([facility]) Body mass index (BMI) [Ratio] 30.2 kg/m2 30.2 k g/m2 HILDA ([facility]) Systolic blood pressure 130 mm[Hg] 130 mm[Hg] [facility] Body weight 3558 [oz_av] 3558 [oz_av] HILDA ([facility]) Body height 72 [in_i] 72 [in_i] HILDA ([facility]) Systolic blood pressure 130 mm[Hg] 130 mm[Hg] A THENA ([facility]) Body weight 3558 [oz_av] 3558 [oz_av] HILDA ([facility]) Diastolic blood pressure 85 mm[Hg] 85 mm[Hg] HILDA ([facility]) Body mass index (BMI) [Ratio] 30.2 kg/m2 30.2 k g/m2 HILDA ([facility]) Diastolic blood pressure 85 mm[Hg] 85 mm[Hg] HILDA ([facility]) Body height 72 [in_i] 72 [in_i] HILDA ([facility]) Body mass index (BMI) [Ratio] 30.2 kg/m2 30.2 k g/m2 HILDA ([facility]) Systolic blood pressure 130 mm[Hg] 130 mm[Hg] A THENA ([facility]) Body weight 3558 [oz_av] 3558 [oz_av] HILDA ([facility]) Diastolic blood pressure 85 mm[Hg] 85 mm[Hg] HILDA ([facility]) Body weight 3558 [oz_av] 3558 [oz_av] HILDA ([facility]) Diastolic blood pressure 85 mm[Hg] 85 mm[Hg] HILDA ([facility]) Body height 72 [in_i] 72 [in_i] HILDA ([facility]) Body mass index (BMI) [Ratio] 30.2 kg/m2 30.2 k g/m2 HILDA ([facility]) Systolic blood pressure 130 mm[Hg] 130 mm[Hg] [facility] Body height 72 [in_i] 72 [in_i] HILDA ([facility]) Body mass index (BMI) [Ratio] 30.2 kg/m2 30.2 k g/m2 HILDA ([facility]) Systolic blood pressure 130 mm[Hg] 130 mm[Hg] [facility] Body weight 3558 [oz_av] 3558 [oz_av] HILDA ([facility]) Diastolic blood pressure 85 mm[Hg] 85 mm[Hg] HILDA ([facility]) Body height 72 [in_i] 72 [in_i] HILDA ([facility]) Body mass index (BMI) [Ratio] 30.2 kg/m2 30.2 k g/m2 HILDA ([facility]) Systolic blood pressure 130 mm[Hg] 130 mm[Hg] [facility] Body weight 3558 [oz_av] 3558 [oz_av] HILDA ([facility]) Diastolic blood pressure 85 mm[Hg] 85 mm[Hg] HILDA ([facility]) Body height 72 [in_i] 72 [in_i] HILDA ([facility]) Body mass index (BMI) [Ratio] 30.2 kg/m2 30.2 k g/m2 HILDA ([facility]) Systolic blood pressure 130 mm[Hg] 130 mm[Hg] [facility] Body weight 3558 [oz_av] 3558 [oz_av] HILDA ([facility]) Diastolic blood pressure 85 mm[Hg] 85 mm[Hg] HILDA ([facility]) Body height 72 [in_i] 72 [in_i] HILDA ([facility]) Body mass index (BMI) [Ratio] 30.2 kg/m2 30.2 k g/m2 HILDA ([facility]) Systolic blood pressure 130 mm[Hg] 130 mm[Hg] A THENA ([facility]) Body weight 3558 [oz_av] 3558 [oz_av] HILDA ([facility]) Diastolic blood pressure 85 mm[Hg] 85 mm[Hg] HILDA ([facility]) Body height 72 [in_i] 72 [in_i] HILDA ([facility]) Body mass index (BMI) [Ratio] 30.2 kg/m2 30.2 k g/m2 HILDA ([facility]) Systolic blood pressure 130 mm[Hg] 130 mm[Hg] A THENA ([facility]) Body weight 3558 [oz_av] 3558 [oz_av] HILDA ([facility]) Diastolic blood pressure 85 mm[Hg] 85 mm[Hg] HILDA ([facility]) Body height 72 [in_i] 72 [in_i] HILDA ([facility]) Body mass index (BMI) [Ratio] 30.2 kg/m2 30.2 k g/m2 HILDA ([facility]) Systolic blood pressure 130 mm[Hg] 130 mm[Hg] A THENA ([facility]) Body weight 3558 [oz_av] 3558 [oz_av] HILDA ([facility]) Diastolic blood pressure 85 mm[Hg] 85 mm[Hg] HILDA ([facility]) Body height 72 [in_i] 72 [in_i] HILDA ([facility]) Body mass index (BMI) [Ratio] 30.2 kg/m2 30.2 k g/m2 HILDA ([facility]) Systolic blood pressure 130 mm[Hg] 130 mm[Hg] A THENA ([facility]) Body weight 3558 [oz_av] 3558 [oz_av] HILDA ([facility]) Diastolic blood pressure 85 mm[Hg] 85 mm[Hg] HILDA ([facility]) Body height 72 [in_i] 72 [in_i] HILDA ([facility]) Body mass index (BMI) [Ratio] 30.2 kg/m2 30.2 k g/m2 HILDA ([facility]) Systolic blood pressure 130 mm[Hg] 130 mm[Hg] [facility] Body weight 3558 [oz_av] 3558 [oz_av] HILDA ([facility]) Diastolic blood pressure 85 mm[Hg] 85 mm[Hg] HILDA ([facility]) Diastolic blood pressure 85 mm[Hg] 85 mm[Hg] [facility] [facility] Body height 72 [in_i] 72 [in_i] HILDA ([facility]) Body mass index (BMI) [Ratio] 30.2 kg/m2 30.2 k g/m2 HILDA ([facility]) Systolic blood pressure 130 mm[Hg] 130 mm[Hg] [facility] Body weight 3558 [oz_av] 3558 [oz_av] HILDA ([facility]) Body height 72 [in_i] 72 [in_i] HILDA ([facility]) Body mass index (BMI) [Ratio] 30.2 kg/m2 30.2 k g/m2 HILDA ([facility]) Systolic blood pressure 130 mm[Hg] 130 mm[Hg] [facility] Body weight 3558 [oz_av] 3558 [oz_av] HILDA ([facility]) Diastolic blood pressure 85 mm[Hg] 85 mm[Hg] HILDA ([facility]) Body height 72 [in_i] 72 [in_i] HILDA ([facility]) Body mass index (BMI) [Ratio] 30.2 kg/m2 30.2 k g/m2 HILDA ([facility]) Systolic blood pressure 130 mm[Hg] 130 mm[Hg] [facility] Body weight 3558 [oz_av] 3558 [oz_av] HILDA ([facility]) Diastolic blood pressure 85 mm[Hg] 85 mm[Hg] HILDA ([facility]) Body height 72 [in_i] 72 [in_i] HILDA ([facility]) Body mass index (BMI) [Ratio] 30.2 kg/m2 30.2 k g/m2 HILDA ([facility]) Systolic blood pressure 130 mm[Hg] 130 mm[Hg] A THENA ([facility]) Body weight 3558 [oz_av] 3558 [oz_av] HILDA ([facility]) Diastolic blood pressure 85 mm[Hg] 85 mm[Hg] HILDA ([facility]) Body height 72 [in_i] 72 [in_i] HILDA ([facility]) Body mass index (BMI) [Ratio] 30.2 kg/m2 30.2 k g/m2 HILDA ([facility]) Systolic blood pressure 130 mm[Hg] 130 mm[Hg] A THENA ([facility]) Body weight 3558 [oz_av] 3558 [oz_av] HILDA ([facility]) Diastolic blood pressure 85 mm[Hg] 85 mm[Hg] HILDA ([facility]) Body height 72 [in_i] 72 [in_i] HILDA ([facility]) Body mass index (BMI) [Ratio] 30.2 kg/m2 30.2 k g/m2 HILDA ([facility]) Systolic blood pressure 130 mm[Hg] 130 mm[Hg] A THENA ([facility]) Body weight 3558 [oz_av] 3558 [oz_av] HILDA ([facility]) Diastolic blood pressure 85 mm[Hg] 85 mm[Hg] HILDA ([facility]) Body height 72 [in_i] 72 [in_i] HILDA ([facility]) Body mass index (BMI) [Ratio] 30.2 kg/m2 30.2 k g/m2 HILDA ([facility]) Systolic blood pressure 130 mm[Hg] 130 mm[Hg] A THENA ([facility]) Body weight 3558 [oz_av] 3558 [oz_av] HILDA ([facility]) Diastolic blood pressure 85 mm[Hg] 85 mm[Hg] HILDA ([facility]) Body height 72 [in_i] 72 [in_i] HILDA ([facility]) Body mass index (BMI) [Ratio] 30.2 kg/m2 30.2 k g/m2 HILDA ([facility]) Systolic blood pressure 130 mm[Hg] 130 mm[Hg] [facility] Body weight 3558 [oz_av] 3558 [oz_av] HILDA ([facility]) Body mass index (BMI) [Ratio] 30.2 kg/m2 30.2 k g/m2 HILDA ([facility]) Systolic blood pressure 130 mm[Hg] 130 mm[Hg] A THENA ([facility]) Body weight 3558 [oz_av] 3558 [oz_av] HILDA ([facility]) Diastolic blood pressure 85 mm[Hg] 85 mm[Hg] HILDA ([facility]) Body height 72 [in_i] 72 [in_i] HILDA ([facility]) Body mass index (BMI) [Ratio] 30.2 kg/m2 30.2 k g/m2 HILDA ([facility]) Systolic blood pressure 130 mm[Hg] 130 mm[Hg] A THENA ([facility]) Body weight 3558 [oz_av] 3558 [oz_av] HILDA ([facility]) Body weight 3558 [oz_av] 3558 [oz_av] HILDA ([facility]) Diastolic blood pressure 85 mm[Hg] 85 mm[Hg] HILDA ([facility]) Body height 72 [in_i] 72 [in_i] HILDA ([facility]) Body mass index (BMI) [Ratio] 30.2 kg/m2 30.2 k g/m2 HILDA ([facility]) Systolic blood pressure 130 mm[Hg] 130 mm[Hg] [facility] Diastolic blood pressure 85 mm[Hg] 85 mm[Hg] HILDA ([facility]) Body height 72 [in_i] 72 [in_i] HILDA ([facility]) Body mass index (BMI) [Ratio] 30.2 kg/m2 30.2 k g/m2 HILDA ([facility]) Systolic blood pressure 130 mm[Hg] 130 mm[Hg] A THENA ([facility]) Body weight 3558 [oz_av] 3558 [oz_av] HILDA ([facility]) Diastolic blood pressure 85 mm[Hg] 85 mm[Hg] HILDA ([facility]) Body height 72 [in_i] 72 [in_i] HILDA ([facility]) Body mass index (BMI) [Ratio] 30.2 kg/m2 30.2 k g/m2 HILDA ([facility]) Systolic blood pressure 130 mm[Hg] 130 mm[Hg] A [facility] ([facility]) Body weight 3558 [oz_av] 3558 [oz_av] HILDA ([facility]) Diastolic blood pressure 85 mm[Hg] 85 mm[Hg] HILDA ([facility]) Systolic blood pressure 130 mm[Hg] 130 mm[Hg] A [facility] ([facility]) Body height 72 [in_i] 72 [in_i] HILDA ([facility]) Body weight 3558 [oz_av] 3558 [oz_av] HILDA ([facility]) Diastolic blood pressure 85 mm[Hg] 85 mm[Hg] HILDA ([facility]) Body height 72 [in_i] 72 [in_i] HLIDA ([facility]) Body mass index (BMI) [Ratio] 30.2 kg/m2 30.2 k g/m2 HILDA ([facility]) Diastolic blood pressure 85 mm[Hg] 85 mm[Hg] HILDA ([facility]) Body height 72 [in_i] 72 [in_i] HILDA ([facility]) Body mass index (BMI) [Ratio] 30.2 kg/m2 30.2 k g/m2 HILDA ([facility]) Systolic blood pressure 130 mm[Hg] 130 mm[Hg] [facility] Body weight 3558 [oz_av] 3558 [oz_av] HILDA ([facility]) Diastolic blood pressure 85 mm[Hg] 85 mm[Hg] HILDA ([facility]) Body height 72 [in_i] 72 [in_i] HILDA ([facility]) Body mass index (BMI) [Ratio] 30.2 kg/m2 30.2 k g/m2 HILDA ([facility]) Systolic blood pressure 130 mm[Hg] 130 mm[Hg] A THENA ([facility]) Body weight 3558 [oz_av] 3558 [oz_av] HILDA ([facility]) Diastolic blood pressure 85 mm[Hg] 85 mm[Hg] HILDA ([facility]) Body height 72 [in_i] 72 [in_i] HILDA ([facility]) Body mass index (BMI) [Ratio] 30.2 kg/m2 30.2 k g/m2 HILDA ([facility]) Systolic blood pressure 130 mm[Hg] 130 mm[Hg] A THENA ([facility]) Body weight 3558 [oz_av] 3558 [oz_av] HILDA ([facility]) Diastolic blood pressure 85 mm[Hg] 85 mm[Hg] HILDA ([facility]) Body height 72 [in_i] 72 [in_i] HILDA ([facility]) Body mass index (BMI) [Ratio] 30.2 kg/m2 30.2 k g/m2 HILDA ([facility]) Systolic blood pressure 130 mm[Hg] 130 mm[Hg] A THENA ([facility]) Body weight 3558 [oz_av] 3558 [oz_av] HILDA ([facility]) Diastolic blood pressure 85 mm[Hg] 85 mm[Hg] HILDA ([facility]) Body height 72 [in_i] 72 [in_i] HILDA ([facility]) Body mass index (BMI) [Ratio] 30.2 kg/m2 30.2 k g/m2 HILDA ([facility]) Diastolic blood pressure 85 mm[Hg] 85 mm[Hg] HILDA ([facility]) Body height 72 [in_i] 72 [in_i] HILDA ([facility]) Body mass index (BMI) [Ratio] 30.2 kg/m2 30.2 k g/m2 HILDA ([facility]) Systolic blood pressure 130 mm[Hg] 130 mm[Hg] A THENA ([facility]) Body weight 3558 [oz_av] 3558 [oz_av] HILDA ([facility]) Systolic blood pressure 130 mm[Hg] 130 mm[Hg] [facility] Body weight 3558 [oz_av] 3558 [oz_av] HILDA ([facility]) Diastolic blood pressure 85 mm[Hg] 85 mm[Hg] HILDA ([facility]) Body height 72 [in_i] 72 [in_i] HILDA ([facility]) Body mass index (BMI) [Ratio] 30.2 kg/m2 30.2 k g/m2 HILDA ([facility]) Systolic blood pressure 130 mm[Hg] 130 mm[Hg] A [facility] ([facility]) Body weight 3558 [oz_av] 3558 [oz_av] HILDA ([facility]) Diastolic blood pressure 85 mm[Hg] 85 mm[Hg] HILDA ([facility]) Body height 72 [in_i] 72 [in_i] HILDA ([facility]) Body mass index (BMI) [Ratio] 30.2 kg/m2 30.2 k g/m2 HILDA ([facility]) Systolic blood pressure 130 mm[Hg] 130 mm[Hg] [facility] Body weight 3558 [oz_av] 3558 [oz_av] HILDA ([facility]) Diastolic blood pressure 85 mm[Hg] 85 mm[Hg] HILDA ([facility]) Body height 72 [in_i] 72 [in_i] HILDA ([facility]) Body mass index (BMI) [Ratio] 30.2 kg/m2 30.2 k g/m2 HILDA ([facility]) Systolic blood pressure 130 mm[Hg] 130 mm[Hg] A THENA ([facility]) Body weight 3558 [oz_av] 3558 [oz_av] HILDA ([facility]) Body mass index (BMI) [Ratio] 30.2 kg/m2 30.2 k g/m2 HILDA ([facility]) Systolic blood pressure 130 mm[Hg] 130 mm[Hg] [facility] Body weight 3558 [oz_av] 3558 [oz_av] HILDA ([facility]) Diastolic blood pressure 85 mm[Hg] 85 mm[Hg] HILDA ([facility]) Body height 72 [in_i] 72 [in_i] HILDA ([facility]) Diastolic blood pressure 70 mm[Hg] 70 mm[Hg] HILDA ([facility]) Body height 72 [in_i] 72 [in_i] HILDA ([facility]) Body mass index (BMI) [Ratio] 30.24 kg/m2 30.24 kg/m2 HILDA ([facility]) Systolic blood pressure 134 mm[Hg] 134 mm[Hg] A LUISA ([facility]) Body weight 3555.2 [oz_av] 3555.2 [oz_av] ATHEN A ([facility]) Diastolic blood pressure 70 mm[Hg] 70 mm[Hg] HILDA ([facility]) Body height 72 [in_i] 72 [in_i] HILDA ([facility]) Body mass index (BMI) [Ratio] 30.24 kg/m2 30.24 kg/m2 HILDA ([facility]) Systolic blood pressure 134 mm[Hg] 134 mm[Hg] A LUISA ([facility]) Body weight 3555.2 [oz_av] 3555.2 [oz_av] ATHEN A ([facility]) Diastolic blood pressure 70 mm[Hg] 70 mm[Hg] HILDA ([facility]) Body height 72 [in_i] 72 [in_i] HILDA ([facility]) Body mass index (BMI) [Ratio] 30.24 kg/m2 30.24 kg/m2 HILDA ([facility]) Systolic blood pressure 134 mm[Hg] 134 mm[Hg] A LUISA ([facility]) Body weight 3555.2 [oz_av] 3555.2 [oz_av] ATHEN A ([facility]) Diastolic blood pressure 70 mm[Hg] 70 mm[Hg] HILDA ([facility]) Body height 72 [in_i] 72 [in_i] HILDA ([facility]) Body mass index (BMI) [Ratio] 30.24 kg/m2 30.24 kg/m2 HILDA ([facility]) Systolic blood pressure 134 mm[Hg] 134 mm[Hg] A MOIZ ([facility]) Body weight 3555.2 [oz_av] 3555.2 [oz_av] ATHEN A ([facility]) Diastolic blood pressure 70 mm[Hg] 70 mm[Hg] HILDA ([facility]) Body height 72 [in_i] 72 [in_i] HILDA ([facility]) Body mass index (BMI) [Ratio] 30.24 kg/m2 30.24 kg/m2 HILDA ([facility]) Systolic blood pressure 134 mm[Hg] 134 mm[Hg] A MOIZ ([facility]) Body weight 3555.2 [oz_av] 3555.2 [oz_av] ATHEN A ([facility]) Diastolic blood pressure 70 mm[Hg] 70 mm[Hg] HILDA ([facility]) Body height 72 [in_i] 72 [in_i] HILDA ([facility]) Body mass index (BMI) [Ratio] 30.24 kg/m2 30.24 kg/m2 HILDA ([facility]) Systolic blood pressure 134 mm[Hg] 134 mm[Hg] A MOIZ ([facility]) Body weight 3555.2 [oz_av] 3555.2 [oz_av] ATHEN A ([facility]) Diastolic blood pressure 70 mm[Hg] 70 mm[Hg] HILDA ([facility]) Body height 72 [in_i] 72 [in_i] HILDA ([facility]) Body mass index (BMI) [Ratio] 30.24 kg/m2 30.24 kg/m2 HILDA ([facility]) Systolic blood pressure 134 mm[Hg] 134 mm[Hg] A MOIZ ([facility]) Body weight 3555.2 [oz_av] 3555.2 [oz_av] ATHEN A ([facility]) Diastolic blood pressure 70 mm[Hg] 70 mm[Hg] HILDA ([facility]) Body height 72 [in_i] 72 [in_i] HILDA ([facility]) Body mass index (BMI) [Ratio] 30.24 kg/m2 30.24 kg/m2 HILDA ([facility]) Systolic blood pressure 134 mm[Hg] 134 mm[Hg] [facility] Body weight 3555.2 [oz_av] 3555.2 [oz_av] ATHEN A ([facility]) Diastolic blood pressure 70 mm[Hg] 70 mm[Hg] HILDA ([facility]) Body height 72 [in_i] 72 [in_i] HILDA ([facility]) Body mass index (BMI) [Ratio] 30.24 kg/m2 30.24 kg/m2 HILDA ([facility]) Systolic blood pressure 134 mm[Hg] 134 mm[Hg] A [facility] ([facility]) Body weight 3555.2 [oz_av] 3555.2 [oz_av] ATHEN A ([facility]) Diastolic blood pressure 70 mm[Hg] 70 mm[Hg] HILDA ([facility]) Body height 72 [in_i] 72 [in_i] HILDA ([facility]) Body mass index (BMI) [Ratio] 30.24 kg/m2 30.24 kg/m2 HILDA ([facility]) Systolic blood pressure 134 mm[Hg] 134 mm[Hg] [facility] Body weight 3555.2 [oz_av] 3555.2 [oz_av] ATHEN A ([facility]) Diastolic blood pressure 70 mm[Hg] 70 mm[Hg] HILDA ([facility]) Body height 72 [in_i] 72 [in_i] HILDA ([facility]) Body mass index (BMI) [Ratio] 30.24 kg/m2 30.24 kg/m2 HILDA ([facility]) Systolic blood pressure 134 mm[Hg] 134 mm[Hg] A [facility] ([facility]) Body weight 3555.2 [oz_av] 3555.2 [oz_av] ATHEN A ([facility]) Diastolic blood pressure 70 mm[Hg] 70 mm[Hg] HILDA ([facility]) Body height 72 [in_i] 72 [in_i] HILDA ([facility]) Body mass index (BMI) [Ratio] 30.24 kg/m2 30.24 kg/m2 HILDA ([facility]) Systolic blood pressure 134 mm[Hg] 134 mm[Hg] [facility] Body weight 3555.2 [oz_av] 3555.2 [oz_av] ATHEN A ([facility]) Diastolic blood pressure 70 mm[Hg] 70 mm[Hg] HILDA ([facility]) Body height 72 [in_i] 72 [in_i] HILDA ([facility]) Body mass index (BMI) [Ratio] 30.24 kg/m2 30.24 kg/m2 HILDA ([facility]) Systolic blood pressure 134 mm[Hg] 134 mm[Hg] A [facility] ([facility]) Body weight 3555.2 [oz_av] 3555.2 [oz_av] ATHEN A ([facility]) Diastolic blood pressure 70 mm[Hg] 70 mm[Hg] HILDA ([facility]) Body height 72 [in_i] 72 [in_i] HILDA ([facility]) Body mass index (BMI) [Ratio] 30.24 kg/m2 30.24 kg/m2 HILDA ([facility]) Systolic blood pressure 134 mm[Hg] 134 mm[Hg] [facility] Body weight 3555.2 [oz_av] 3555.2 [oz_av] ATHEN A ([facility]) Diastolic blood pressure 70 mm[Hg] 70 mm[Hg] HILDA ([facility]) Body height 72 [in_i] 72 [in_i] HILDA ([facility]) Body mass index (BMI) [Ratio] 30.24 kg/m2 30.24 kg/m2 HILDA ([facility]) Systolic blood pressure 134 mm[Hg] 134 mm[Hg] A [facility] ([facility]) Body weight 3555.2 [oz_av] 3555.2 [oz_av] ATHEN A ([facility]) Diastolic blood pressure 70 mm[Hg] 70 mm[Hg] HILDA ([facility]) Body height 72 [in_i] 72 [in_i] HILDA ([facility]) Body mass index (BMI) [Ratio] 30.24 kg/m2 30.24 kg/m2 HILDA ([facility]) Systolic blood pressure 134 mm[Hg] 134 mm[Hg] [facility] Body weight 3555.2 [oz_av] 3555.2 [oz_av] ATHEN A ([facility]) Diastolic blood pressure 70 mm[Hg] 70 mm[Hg] HILDA ([facility]) Body height 72 [in_i] 72 [in_i] HILDA ([facility]) Body mass index (BMI) [Ratio] 30.24 kg/m2 30.24 kg/m2 HILDA ([facility]) Systolic blood pressure 134 mm[Hg] 134 mm[Hg] A [facility] ([facility]) Body weight 3555.2 [oz_av] 3555.2 [oz_av] ATHEN A ([facility]) Body mass index (BMI) [Ratio] 30.24 kg/m2 30.24 kg/m2 HILDA ([facility]) Systolic blood pressure 134 mm[Hg] 134 mm[Hg] [facility] Diastolic blood pressure 70 mm[Hg] 70 mm[Hg] HILDA ([facility]) Body height 72 [in_i] 72 [in_i] HILDA ([facility]) Body mass index (BMI) [Ratio] 30.24 kg/m2 30.24 kg/m2 HILDA ([facility]) Systolic blood pressure 134 mm[Hg] 134 mm[Hg] A THENA ([facility]) Body weight 3555.2 [oz_av] 3555.2 [oz_av] ATHEN A ([facility]) Diastolic blood pressure 70 mm[Hg] 70 mm[Hg] HILDA ([facility]) Body height 72 [in_i] 72 [in_i] HILDA ([facility]) Body weight 3555.2 [oz_av] 3555.2 [oz_av] ATHEN A ([facility]) Diastolic blood pressure 70 mm[Hg] 70 mm[Hg] HILDA ([facility]) Body height 72 [in_i] 72 [in_i] HILDA ([facility]) Body mass index (BMI) [Ratio] 30.24 kg/m2 30.24 kg/m2 HILDA ([facility]) Systolic blood pressure 134 mm[Hg] 134 mm[Hg] [facility] Body weight 3555.2 [oz_av] 3555.2 [oz_av] ATHEN A ([facility]) Diastolic blood pressure 70 mm[Hg] 70 mm[Hg] HILDA ([facility]) Body height 72 [in_i] 72 [in_i] HILDA ([facility]) Body mass index (BMI) [Ratio] 30.24 kg/m2 30.24 kg/m2 HILDA ([facility]) Systolic blood pressure 134 mm[Hg] 134 mm[Hg] A [facility] ([facility]) Body weight 3555.2 [oz_av] 3555.2 [oz_av] ATHEN A ([facility]) Diastolic blood pressure 70 mm[Hg] 70 mm[Hg] HILDA ([facility]) Body height 72 [in_i] 72 [in_i] HILDA ([facility]) Body mass index (BMI) [Ratio] 30.24 kg/m2 30.24 kg/m2 HILDA ([facility]) Systolic blood pressure 134 mm[Hg] 134 mm[Hg] A THENA ([facility]) Body weight 3555.2 [oz_av] 3555.2 [oz_av] ATHEN A ([facility]) Diastolic blood pressure 70 mm[Hg] 70 mm[Hg] HILDA ([facility]) Body height 72 [in_i] 72 [in_i] HILDA ([facility]) Body mass index (BMI) [Ratio] 30.24 kg/m2 30.24 kg/m2 HILDA ([facility]) Systolic blood pressure 134 mm[Hg] 134 mm[Hg] A [facility] ([facility]) Body weight 3555.2 [oz_av] 3555.2 [oz_av] ATHEN A ([facility]) Patient Treatment Plan of Care Planned Activity Planned Date Details Description Data Source (s) Amoxicillin 875 MG / Clavulanate 125 MG Oral Tablet 04/02/19 21 12:00:00 AM EST HILDA ([facility]) Amoxicillin 875 MG / Clavulanate 125 MG Oral Tablet 04/02/19 21 12:00:00 AM EST HILDA ([facility]) Amoxicillin 875 MG / Clavulanate 125 MG Oral Tablet 04/02/19 21 12:00:00 AM EST HILDA ([facility]) Amoxicillin 875 MG / Clavulanate 125 MG Oral Tablet 04/02/19 21 12:00:00 AM EST HILDA ([facility]) Amoxicillin 875 MG / Clavulanate 125 MG Oral Tablet 04/02/19 21 12:00:00 AM EST HILDA ([facility]) Amoxicillin 875 MG / Clavulanate 125 MG Oral Tablet 04/02/19 21 12:00:00 AM EST HILDA ([facility]) Amoxicillin 875 MG / Clavulanate 125 MG Oral Tablet 04/02/19 21 12:00:00 AM EST HILDA ([facility]) Amoxicillin 875 MG / Clavulanate 125 MG Oral Tablet 04/02/19 21 12:00:00 AM EST HILDA ([facility]) Amoxicillin 875 MG / Clavulanate 125 MG Oral Tablet 04/02/19 21 12:00:00 AM EST HILDA ([facility]) Amoxicillin 875 MG / Clavulanate 125 MG Oral Tablet 04/02/19 21 12:00:00 AM EST HILDA ([facility]) Amoxicillin 875 MG / Clavulanate 125 MG Oral Tablet 04/02/19 21 12:00:00 AM EST HILDA ([facility]) Amoxicillin 875 MG / Clavulanate 125 MG Oral Tablet 04/02/19 21 12:00:00 AM EST HILDA ([facility]) Amoxicillin 875 MG / Clavulanate 125 MG Oral Tablet 04/02/19 21 12:00:00 AM EST HILDA ([facility]) Amoxicillin 875 MG / Clavulanate 125 MG Oral Tablet 04/02/19 21 12:00:00 AM EST HILDA ([facility]) Amoxicillin 875 MG / Clavulanate 125 MG Oral Tablet 04/02/19 21 12:00:00 AM EST [facility]ILDA ([facility] [facility]) Amoxicillin 875 MG / Clavulanate 125 MG Oral Tablet 04/02/19 21 12:00:00 AM EST HILDA ([facility]) Amoxicillin 875 MG / Clavulanate 125 MG Oral Tablet 04/02/19 21 12:00:00 AM EST HILDA ([facility]) Amoxicillin 875 MG / Clavulanate 125 MG Oral Tablet 04/02/19 21 12:00:00 AM EST HILDA ([facility]) Amoxicillin 875 MG / Clavulanate 125 MG Oral Tablet 04/02/19 21 12:00:00 AM EST HILDA ([facility]) Amoxicillin 875 MG / Clavulanate 125 MG Oral Tablet 04/02/19 21 12:00:00 AM EST HILDA ([facility]) Amoxicillin 875 MG / Clavulanate 125 MG Oral Tablet 04/02/19 21 12:00:00 AM EST HILDA ([facility]) Amoxicillin 875 MG / Clavulanate 125 MG Oral Tablet 04/02/19 21 12:00:00 AM EST HILDA ([facility]) Amoxicillin 875 MG / Clavulanate 125 MG Oral Tablet 04/02/19 21 12:00:00 AM EST HILDA ([facility]) Escitalopram 10 MG Oral Tablet [Lexapro] 10/28/2019 12:00:00 AM EDT HILDA ([facility]) Escitalopram 10 MG Oral Tablet [Lexapro] 10/28/2019 12:00:00 AM EDT HILDA ([facility]) Escitalopram 10 MG Oral Tablet [Lexapro] 10/28/2019 12:00:00 AM EDT HILDA ([facility]) Escitalopram 10 MG Oral Tablet [Lexapro] 10/28/2019 12:00:00 AM EDT [place] ([facility]) Escitalopram 10 MG Oral Tablet [Lexapro] 10/28/2019 12:00:00 AM EDT HILDA ([facility]) Escitalopram 10 MG Oral Tablet [Lexapro] 10/28/2019 12:00:00 AM EDT HILDA ([facility]) Escitalopram 10 MG Oral Tablet [Lexapro] 10/28/2019 12:00:00 AM EDT HILDA ([facility]) Escitalopram 10 MG Oral Tablet [Lexapro] 10/28/2019 12:00:00 AM EDT HILDA ([facility]) Escitalopram 10 MG Oral Tablet [Lexapro] 10/28/2019 12:00:00 AM EDT HILDA ([facility]) Escitalopram 10 MG Oral Tablet [Lexapro] 10/28/2019 12:00:00 AM EDT [facility]ILDA ([facility]) Escitalopram 10 MG Oral Tablet [Lexapro] 10/28/2019 12:00:00 AM EDT [place] ([facility]) Escitalopram 10 MG Oral Tablet [Lexapro] 10/28/2019 12:00:00 AM EDT [place] ([facility]) Escitalopram 10 MG Oral Tablet [Lexapro] 10/28/2019 12:00:00 AM EDT [place] ([facility]) Escitalopram 10 MG Oral Tablet [Lexapro] 10/28/2019 12:00:00 AM EDT [place] ([facility]) Escitalopram 10 MG Oral Tablet [Lexapro] 10/28/2019 12:00:00 AM EDT [place] ([facility]) Escitalopram 10 MG Oral Tablet [Lexapro] 10/28/2019 12:00:00 AM EDT HILDA ([facility]) Escitalopram 10 MG Oral Tablet [Lexapro] 10/28/2019 12:00:00 AM EDT HILDA ([facility]) Escitalopram 10 MG Oral Tablet [Lexapro] 10/28/2019 12:00:00 AM EDT [facility]ILDA ([facility]) Escitalopram 10 MG Oral Tablet [Lexapro] 10/28/2019 12:00:00 AM EDT [facility]ILDA ([facility]) Escitalopram 10 MG Oral Tablet [Lexapro] 10/28/2019 12:00:00 AM EDT [facility]ILDA ([facility]) Escitalopram 10 MG Oral Tablet [Lexapro] 10/28/2019 12:00:00 AM EDT [facility]ILDA ([facility]) Escitalopram 10 MG Oral Tablet [Lexapro] 10/28/2019 12:00:00 AM EDT [facility]ILDA ([facility]) Escitalopram 10 MG Oral Tablet [Lexapro] 10/28/2019 12:00:00 AM EDT [facility]ILDA ([facility]) Escitalopram 10 MG Oral Tablet [Lexapro] 09/10/2019 12:00:00 AM EDT [facility]ILDA ([facility]) Escitalopram 10 MG Oral Tablet [Lexapro] 09/10/2019 12:00:00 AM EDT [facility]ILDA ([facility]) Trazodone Hydrochloride 50 MG Oral Tablet HILDA ([facility]) Sumatriptan 25 MG Oral Tablet HILDA ([facility]) Omeprazole 20 MG Delayed Release Oral Capsule HILDA ([facility]) Lorazepam 1 MG Oral Tablet A THENA ([facility]) Hydroxyzine Hydrochloride 25 MG Oral Tablet HILDA ([facility]) fluticasone propionate 50 mcg/actuation nasal spray,suspension [place] 1 spray every day by intranasal route as needed. HILDA ([facility]) cetirizine hydrochloride 10 MG Oral Tablet HILDA ([facility]) albuterol sulfate HFA 90 mcg/actuation a erosol inhaler INHALE 2 PUFFS BY MOUTH EVERY 4 HOURS NEEDED HILDA ( [facility]) Trazodone Hydrochloride 50 MG Oral Tablet [facility]ILDA ([facility]) Sumatriptan 25 MG Oral Tablet HILDA ([facility]) Omeprazole 20 MG Delayed Release Oral Capsule HILDA ([facility]) Lorazepam 1 MG Oral Tablet A THENA ([facility]) Hydroxyzine Hydrochloride 25 MG Oral Tablet HILDA ([facility]) fluticasone propionate 50 mcg/actuation nasal spray,suspension [place] 1 spray every day by intranasal route as needed. HILDA ([facility]) cetirizine hydrochloride 10 MG Oral Tablet HILDA ([facility]) albuterol sulfate HFA 90 mcg/actuation a erosol inhaler INHALE 2 PUFFS BY MOUTH EVERY 4 HOURS NEEDED HILDA ( [facility]) cetirizine hydrochloride 10 MG Oral Tablet HILDA ([facility]) Trazodone Hydrochloride 50 MG Oral Tablet HILDA ([facility]) cetirizine hydrochloride 10 MG Oral Tablet HILDA ([facility]) Trazodone Hydrochloride 50 MG Oral Tablet HILDA ([facility]) cetirizine hydrochloride 10 MG Oral Tablet HILDA ([facility]) Trazodone Hydrochloride 50 MG Oral Tablet HILDA ([facility]) cetirizine hydrochloride 10 MG Oral Tablet HILDA ([facility]) Trazodone Hydrochloride 50 MG Oral Tablet HILDA ([facility]) cetirizine hydrochloride 10 MG Oral Tablet HILDA ([facility]) Trazodone Hydrochloride 50 MG Oral Tablet HILDA ([facility]) cetirizine hydrochloride 10 MG Oral Tablet HILDA ([facility]) Trazodone Hydrochloride 50 MG Oral Tablet HILDA ([facility]) cetirizine hydrochloride 10 MG Oral Tablet HILDA ([facility]) Trazodone Hydrochloride 50 MG Oral Tablet HILDA ([facility]) cetirizine hydrochloride 10 MG Oral Tablet HILDA ([facility]) Trazodone Hydrochloride 50 MG Oral Tablet HILDA ([facility]) cetirizine hydrochloride 10 MG Oral Tablet HILDA ([facility]) Trazodone Hydrochloride 50 MG Oral Tablet HILDA ([facility]) cetirizine hydrochloride 10 MG Oral Tablet HILDA ([facility]) Trazodone Hydrochloride 50 MG Oral Tablet [facility]ILDA ([facility]) cetirizine hydrochloride 10 MG Oral Tablet [facility]DA ([facility]) Trazodone Hydrochloride 50 MG Oral Tablet [facility]ILDA ([facility]) cetirizine hydrochloride 10 MG Oral Tablet HILDA ([facility]) Trazodone Hydrochloride 50 MG Oral Tablet HILDA ([facility]) cetirizine hydrochloride 10 MG Oral Tablet HILDA ([facility]) Trazodone Hydrochloride 50 MG Oral Tablet HILDA ([facility]) cetirizine hydrochloride 10 MG Oral Tablet HILDA ([facility]) Trazodone Hydrochloride 50 MG Oral Tablet HILDA ([facility]) cetirizine hydrochloride 10 MG Oral Tablet HILDA ([facility]) Trazodone Hydrochloride 50 MG Oral Tablet HILDA ([facility]) cetirizine hydrochloride 10 MG Oral Tablet HILDA ([facility]) Trazodone Hydrochloride 50 MG Oral Tablet HILDA ([facility]) cetirizine hydrochloride 10 MG Oral Tablet HILDA ([facility]) Trazodone Hydrochloride 50 MG Oral Tablet HILDA ([facility]) cetirizine hydrochloride 10 MG Oral Tablet HILDA ([facility]) Trazodone Hydrochloride 50 MG Oral Tablet HILDA ([facility]) Trazodone Hydrochloride 50 MG Oral Tablet HILDA ([facility]) Trazodone Hydrochloride 50 MG Oral Tablet HILDA ([facility]) Trazodone Hydrochloride 50 MG Oral Tablet HILDA ([facility]) Hydroxyzine Hydrochloride 10 MG Oral Tablet HILDA ([facility]) Escitalopram 10 MG Oral Tablet HILDA ([facility]) Trazodone Hydrochloride 50 MG Oral Tablet H[place]DA ([facility]) Hydroxyzine Hydrochloride 10 MG Oral Tablet HILDA ([facility]) Escitalopram 10 MG Oral Tablet [facility]ILDA ([facility]) Trazodone Hydrochloride 50 MG Oral Tablet HILDA ([facility]) Hydroxyzine Hydrochloride 10 MG Oral Tablet HILDA ([facility]) Escitalopram 10 MG Oral Tablet [facility]ILDA ([facility]) Trazodone Hydrochloride 50 MG Oral Tablet [facility]ILDA ([facility]) Hydroxyzine Hydrochloride 10 MG Oral Tablet [facility]DA ([facility]) Escitalopram 10 MG Oral Tablet [facility]DA ([facility]) Hydroxyzine Hydrochloride 10 MG Oral Tablet [facility]DA ([facility]) Escitalopram 10 MG Oral Tablet [facility]DA ([facility]) Hydroxyzine Hydrochloride 10 MG Oral Tablet [facility]DA ([facility]) Escitalopram 10 MG Oral Tablet [facility]DA ([facility]) Hydroxyzine Hydrochloride 10 MG Oral Tablet [facility]DA ([facility]) Escitalopram 10 MG Oral Tablet [facility]DA ([facility]) Hydroxyzine Hydrochloride 10 MG Oral Tablet [facility]DA ([facility]) Escitalopram 10 MG Oral Tablet HILDA ([facility]) Hydroxyzine Hydrochloride 10 MG Oral Tablet [facility]ILDA ([facility]) Escitalopram 10 MG Oral Tablet HILDA ([facility]) Hydroxyzine Hydrochloride 10 MG Oral Tablet [facility]ILDA ([facility]) Escitalopram 10 MG Oral Tablet HILDA ([facility]) Trazodone Hydrochloride 50 MG Oral Tablet HILDA ([facility]) cetirizine hydrochloride 10 MG Oral Tablet HILDA ([facility])
--- NOTE | 2020-11-30 11:45 | REP ---
INDICATION: CHEST PAIN. COMPARISON: 11/26/2020. TECHNIQUE: Single portable AP view of the chest was performed. FINDINGS: There is no acute infiltrate or pulmonary edema. Lungs are clear. The heart is not significantly enlarged. The mediastinal silhouette is unremarkable. The visualized osseous structures are intact. IMPRESSION: No acute pulmonary disease. <Electronically signed by Brandon Bowman > 11/30/20 1141
[2020-11-30 12:04] LABS: BASO % 0.3 % (0.0-1.0); EOS # 0.1 10^3/uL (0.0-0.5); EOS % 1.2 % (0.0-3.0); HEMOGLOBIN 15.7 g/dl (13.5-17.5); LYMPH # 2.2 10^3/uL (1.5-5.0); MEAN CORPUSCULAR HEMOGLOBIN 27.3 pg (27.0-33.0); MEAN CORPUSCULAR HGB CONC 32.7 g/dl (32.0-36.5); MEAN CORPUSCULAR VOLUME 83.5 fl (80.0-96.0); MONO # 0.5 10^3/uL (0.0-0.8); MONO % 7.6 % (2.0-8.0); NEUTROPHILS # 3.7 10^3/uL (1.5-8.5); NEUTROPHILS % 56.6 % (36.0-66.0); PLATELET COUNT, AUTOMATED 281 10^3/uL (150-450); RED BLOOD COUNT 5.75 10^6/uL (4.30-6.10); WHITE BLOOD COUNT 6.5 10^3/uL (4.0-10.0)
[2020-11-30 12:33] LABS: BLOOD UREA NITROGEN 11 MG/DL (7-18); CALCIUM LEVEL 9.5 MG/DL (8.5-10.1); CARBON DIOXIDE LEVEL 31 MEQ/L (21-32); CHLORIDE LEVEL 104 MEQ/L (98-107); CREATININE FOR GFR 1.06 MG/DL (0.70-1.30); GLOMERULAR FILTRATION RATE > 60.0 (>60); GLUCOSE, FASTING 92 MG/DL (70-100); POTASSIUM SERUM 4.4 MEQ/L (3.5-5.1); SODIUM LEVEL 139 MEQ/L (136-145); THYROID STIMULATING HORMONE 0.855 uIU/ML (0.358-3.740)
[2020-11-30 13:06] VITALS: BP 149/61
--- NOTE | 2020-11-30 16:01 | ECGEPIP ---
[facility] - ED Test Date: 2020-11-30 Pat Name: KAVEH EDGE Department: Room: - Gender: Male [employer] Attendant: CARA : [id number] Requested By: Pam Conrad Order Number: [id number] Reading MD: Pam Conrad Measurements Intervals [place] Rate: 64 P: 28 GA: 166 QRS: 57 QRSD: 100 T: 29 QT: 394 QTc: 406 Interpretive Statements Normal sinus rhythm Nonspecific ST T wave changes cw 08/14/[address] T wave changes Electronically Signed on 11-30-2020 16:01:34 EDT by Pam Conrad
== END 2020-11-30 13:09 | disposition home or self-care (01) ==
LOC: M ED 09:45
DX: R00.2 Palpitations (principal); Z79.899 Other long term (current) drug therapy

== ENCOUNTER 2021-04-06 11:04 | Emergency (ER) | payer BC ==
[~2021-04-06] VITALS: Ht 182.9 cm; Wt 106.0 kg
[~2021-04-06 11:04] MED LIST changes: +LORA-674
[2021-04-06 11:06] VITALS: BP 130/68
[2021-04-06] MEDS ORDERED: AMOX875T (11:16)
[2021-04-06] MEDS ORDERED: NAPR-885 (11:16)
[2021-04-06] MEDS ORDERED: ACE65ERTAB PO (11:16)
[2021-04-06] MEDS ORDERED: PERI12LIQ (11:16)
[2021-04-06] MEDS ORDERED: CLEO300C2 PO (12:37)
== END 2021-04-06 12:56 | disposition home or self-care (01) ==
LOC: M ED 11:04
DX: K04.7 Periapical abscess without sinus (principal); F41.9 Anxiety disorder, unspecified; Z88.8 Allergy status to other drugs, medicaments and biological substances; Z79.899 Other long term (current) drug therapy

== ENCOUNTER 2021-07-01 08:30 | Outpatient (RCR) | payer BC ==
[~2021-07-01 08:30] MED LIST changes: +ACE65ERTAB PO; -AFRI0.058; +AMOX875T; +CLEO300C2 PO; +NAPR-885; +OXYM15SP2; +PERI12LIQ
== END 2021-07-05 ==
LOC: M PT 08:30
PROVIDERS: ATTEND Physician Assistant
DX: M26.601 Right temporomandibular joint disorder, unspecified (principal); M54.50 Low back pain, unspecified; M54.2 Cervicalgia

== ENCOUNTER 2021-10-17 09:35 | Emergency (ER) | payer BC ==
[~2021-10-17] VITALS: Ht 182.9 cm; Wt 102.3 kg
[2021-10-17] MEDS ORDERED: OMEP-173 (10:01)
[2021-10-17] MEDS ORDERED: ATOR1TAB21 (10:01)
[2021-10-17 10:25] LABS: BASO % 0.7 % (0.0-1.0); EOS # 0.2 10^3/uL (0.0-0.5); EOS % 3.2 % (0.0-3.0); HEMATOCRIT 44.6 % (42.0-52.0); HEMOGLOBIN 14.8 g/dl (13.5-17.5); LYMPH # 2.2 10^3/uL (1.5-5.0); LYMPH % 37.6 % (24.0-44.0); MEAN CORPUSCULAR HEMOGLOBIN 28.1 pg (27.0-33.0); MEAN CORPUSCULAR HGB CONC 33.2 g/dl (32.0-36.5); MEAN CORPUSCULAR VOLUME 84.6 fl (80.0-96.0); MONO # 0.5 10^3/uL (0.0-0.8); MONO % 8.3 % (2.0-8.0); PLATELET COUNT, AUTOMATED 272 10^3/uL (150-450); RED BLOOD COUNT 5.27 10^6/uL (4.30-6.10); WHITE BLOOD COUNT 5.9 10^3/uL (4.0-10.0)
[2021-10-17 11:15] LABS: CK-MB VALUE MASS < 1.0 NG/ML (<3.6); CPK CREATINE PHOSPHOKINASE 151 U/L (39-308); MB/CK RELATIVE INDEX 0.66 (< OR =4)
[2021-10-17 11:17] LABS: ALBUMIN 3.9 GM/DL (3.2-5.2); ALT/SGPT 44 U/L (12-78); BILIRUBIN,DIRECT 0.2 MG/DL (0.0-0.2); BILIRUBIN,TOTAL 0.4 MG/DL (0.2-1.0); BLOOD UREA NITROGEN 11 MG/DL (7-18); CALCIUM LEVEL 9.4 MG/DL (8.5-10.1); CARBON DIOXIDE LEVEL 28 MEQ/L (21-32); CHLORIDE LEVEL 105 MEQ/L (98-107); CREATININE FOR GFR 1.22 MG/DL (0.70-1.30); FREE T4 0.93 NG/DL (0.76-1.46); GLOMERULAR FILTRATION RATE > 60.0 (>60); GLUCOSE, FASTING 95 MG/DL (70-100); LIPASE 110 U/L (73-393); POTASSIUM SERUM 4.3 MEQ/L (3.5-5.1); SODIUM LEVEL 136 MEQ/L (136-145); TOTAL PROTEIN 7.2 GM/DL (6.4-8.2)
[2021-10-17 13:53] VITALS: BP 130/84
== END 2021-10-17 14:37 | disposition home or self-care (01) ==
LOC: M ED 09:35
DX: R07.89 Other chest pain (principal); R06.02 Shortness of breath; R00.2 Palpitations; F41.9 Anxiety disorder, unspecified; Z88.8 Allergy status to other drugs, medicaments and biological substances; Z79.899 Other long term (current) drug therapy

== ENCOUNTER 2021-10-30 02:12 | Emergency (ER) | payer BC ==
[~2021-10-30] VITALS: Ht 182.9 cm; Wt 104.5 kg
[~2021-10-30 02:12] MED LIST changes: +ATOR1TAB21; +OMEP-173
[2021-10-30 03:00] LABS: BASO # 0.1 10^3/uL (0.0-0.2); BASO % 0.5 % (0.0-1.0); EOS # 0.2 10^3/uL (0.0-0.5); EOS % 2.2 % (0.0-3.0); HEMATOCRIT 47.2 % (42.0-52.0); HEMOGLOBIN 15.7 g/dl (13.5-17.5); LYMPH # 4.7 10^3/uL (1.5-5.0); LYMPH % 47.4 % (24.0-44.0); MEAN CORPUSCULAR HGB CONC 33.3 g/dl (32.0-36.5); MEAN CORPUSCULAR VOLUME 84.3 fl (80.0-96.0); MONO # 0.6 10^3/uL (0.0-0.8); MONO % 6.2 % (2.0-8.0); NEUTROPHILS # 4.3 10^3/uL (1.5-8.5); NEUTROPHILS % 43.6 % (36.0-66.0); PLATELET COUNT, AUTOMATED 267 10^3/uL (150-450)
[2021-10-30 03:35] LABS: BLOOD UREA NITROGEN 14 MG/DL (7-18); CALCIUM LEVEL 8.6 MG/DL (8.5-10.1); CARBON DIOXIDE LEVEL 29 MEQ/L (21-32); CHLORIDE LEVEL 104 MEQ/L (98-107); CREATININE FOR GFR 1.11 MG/DL (0.70-1.30); GLOMERULAR FILTRATION RATE > 60.0 (>60); GLUCOSE, FASTING 132 MG/DL (70-100); POTASSIUM SERUM 3.6 MEQ/L (3.5-5.1); SODIUM LEVEL 138 MEQ/L (136-145)
[2021-10-30 04:55] LABS: CK-MB VALUE MASS < 1.0 NG/ML (<3.6); CPK CREATINE PHOSPHOKINASE 98 U/L (39-308); MB/CK RELATIVE INDEX 1.02 (< OR =4)
[2021-10-30 06:15] VITALS: BP 112/61
== END 2021-10-30 06:31 | disposition home or self-care (01) ==
LOC: M ED 02:12
DX: F41.1 Generalized anxiety disorder (principal); Z88.8 Allergy status to other drugs, medicaments and biological substances

== ENCOUNTER 2021-11-08 10:40 | Emergency (ER) | payer BC ==
[~2021-11-08] VITALS: Ht 182.9 cm; Wt 101.9 kg
[2021-11-08] MEDS ORDERED: LEXA1TAB PO (11:59)
[2021-11-08 13:04] LABS: BASO % 0.4 % (0.0-1.0); EOS # 0.1 10^3/uL (0.0-0.5); EOS % 1.5 % (0.0-3.0); HEMATOCRIT 46.8 % (42.0-52.0); HEMOGLOBIN 15.4 g/dl (13.5-17.5); LYMPH # 2.7 10^3/uL (1.5-5.0); LYMPH % 34.7 % (24.0-44.0); MEAN CORPUSCULAR HEMOGLOBIN 27.5 pg (27.0-33.0); MEAN CORPUSCULAR HGB CONC 32.9 g/dl (32.0-36.5); MEAN CORPUSCULAR VOLUME 83.4 fl (80.0-96.0); MONO # 0.7 10^3/uL (0.0-0.8); MONO % 8.5 % (2.0-8.0); NEUTROPHILS # 4.3 10^3/uL (1.5-8.5); NEUTROPHILS % 54.6 % (36.0-66.0); PLATELET COUNT, AUTOMATED 261 10^3/uL (150-450); RED BLOOD COUNT 5.61 10^6/uL (4.30-6.10); WHITE BLOOD COUNT 7.9 10^3/uL (4.0-10.0)
[2021-11-08 13:30] VITALS: BP 123/76
[2021-11-08 13:36] LABS: CK-MB VALUE MASS < 1.0 NG/ML (<3.6); CPK CREATINE PHOSPHOKINASE 75 U/L (39-308); MB/CK RELATIVE INDEX 1.33 (< OR =4)
[2021-11-08 13:41] LABS: ALT/SGPT 45 U/L (12-78); BILIRUBIN,DIRECT 0.2 MG/DL (0.0-0.2); BILIRUBIN,TOTAL 0.5 MG/DL (0.2-1.0); BLOOD UREA NITROGEN 10 MG/DL (7-18); CALCIUM LEVEL 9.2 MG/DL (8.5-10.1); CARBON DIOXIDE LEVEL 27 MEQ/L (21-32); CHLORIDE LEVEL 105 MEQ/L (98-107); CREATININE FOR GFR 1.11 MG/DL (0.70-1.30); FREE T4 1.06 NG/DL (0.76-1.46); GLOMERULAR FILTRATION RATE > 60.0 (>60); GLUCOSE, FASTING 87 MG/DL (70-100); LIPASE 97 U/L (73-393); NT-PRO BNP 24 PG/ML (<125); POTASSIUM SERUM 4.4 MEQ/L (3.5-5.1); SODIUM LEVEL 137 MEQ/L (136-145); TOTAL PROTEIN 7.5 GM/DL (6.4-8.2)
[2021-11-08 14:29] LABS: CK-MB VALUE MASS < 1.0 NG/ML (<3.6); CPK CREATINE PHOSPHOKINASE 76 U/L (39-308); MB/CK RELATIVE INDEX 1.32 (< OR =4)
== END 2021-11-08 14:07 | disposition home or self-care (01) ==
LOC: M ED 10:40
DX: R07.9 Chest pain, unspecified (principal); E78.5 Hyperlipidemia, unspecified; D41.9 Neoplasm of uncertain behavior of unspecified urinary organ; Z88.8 Allergy status to other drugs, medicaments and biological substances

== ENCOUNTER 2021-11-15 08:28 | Outpatient (RCR) | payer BC ==
[~2021-11-15 08:28] MED LIST changes: +LEXA1TAB PO
== END 2021-12-05 23:59 | disposition home or self-care (01) ==
LOC: M PT 08:28
PROVIDERS: ATTEND Physician Assistant
DX: M54.6 Pain in thoracic spine (principal)

== ENCOUNTER 2021-11-21 05:09 | Emergency (ER) | payer BC ==
[~2021-11-21] VITALS: Ht 182.9 cm; Wt 101.6 kg
[2021-11-21 05:10] VITALS: BP 142/90
== END 2021-11-21 06:45 | disposition left against medical advice (07) ==
LOC: M ED 05:09
DX: Z53.21 Procedure and treatment not carried out due to patient leaving prior to being seen by health care provider (principal)

== ENCOUNTER 2021-11-21 12:45 | Emergency (ER) | payer BC ==
[~2021-11-21] VITALS: Ht 182.9 cm; Wt 100.0 kg
[2021-11-21 16:35] LABS: BASO % 0.3 % (0.0-1.0); EOS % 0.4 % (0.0-3.0); HEMATOCRIT 49.5 % (42.0-52.0); HEMOGLOBIN 15.9 g/dl (13.5-17.5); LYMPH % 27.4 % (24.0-44.0); MEAN CORPUSCULAR HGB CONC 32.1 g/dl (32.0-36.5); MEAN CORPUSCULAR VOLUME 84.2 fl (80.0-96.0); MONO # 0.7 10^3/uL (0.0-0.8); MONO % 6.2 % (2.0-8.0); NEUTROPHILS % 65.5 % (36.0-66.0); PLATELET COUNT, AUTOMATED 279 10^3/uL (150-450); RED BLOOD COUNT 5.88 10^6/uL (4.30-6.10); WHITE BLOOD COUNT 10.8 10^3/uL (4.0-10.0)
[2021-11-21 17:11] LABS: CPK CREATINE PHOSPHOKINASE 81 U/L (39-308)
[2021-11-21 17:14] LABS: ALBUMIN 4.1 GM/DL (3.2-5.2); ALT/SGPT 46 U/L (12-78); BILIRUBIN,DIRECT 0.2 MG/DL (0.0-0.2); BILIRUBIN,TOTAL 0.7 MG/DL (0.2-1.0); BLOOD UREA NITROGEN 9 MG/DL (7-18); CALCIUM LEVEL 9.3 MG/DL (8.5-10.1); CARBON DIOXIDE LEVEL 28 MEQ/L (21-32); CHLORIDE LEVEL 103 MEQ/L (98-107); CREATININE FOR GFR 1.14 MG/DL (0.70-1.30); GLOMERULAR FILTRATION RATE > 60.0 (>60); GLUCOSE, FASTING 103 MG/DL (70-100); LIPASE 111 U/L (73-393); POTASSIUM SERUM 4.1 MEQ/L (3.5-5.1); SODIUM LEVEL 136 MEQ/L (136-145); THYROID STIMULATING HORMONE 0.876 uIU/ML (0.358-3.740); TOTAL PROTEIN 7.8 GM/DL (6.4-8.2)
[2021-11-21 18:56] LABS: CPK CREATINE PHOSPHOKINASE 81 U/L (39-308)
[2021-11-21 19:54] VITALS: BP 142/88
== END 2021-11-21 20:01 | disposition home or self-care (01) ==
LOC: M ED 12:45
DX: R07.9 Chest pain, unspecified (principal); R00.2 Palpitations; E78.5 Hyperlipidemia, unspecified; F41.9 Anxiety disorder, unspecified; Z79.899 Other long term (current) drug therapy; Z88.8 Allergy status to other drugs, medicaments and biological substances

== ENCOUNTER 2021-12-28 08:30 | Outpatient (RCR) | payer BC | END 2022-01-04 | LOC: M PT 08:30 | PROVIDERS: ATTEND Physician Assistant | DX: M54.6 Pain in thoracic spine (principal); M54.2 Cervicalgia ==

== ENCOUNTER → 2022-01-04 | Outpatient (CLI) | payer BC | LOC: M RAD 12:53 | PROVIDERS: ATTEND Physician Assistant | DX: M54.50 Low back pain, unspecified (principal); M54.6 Pain in thoracic spine ==

== ENCOUNTER 2022-02-27 03:48 | Emergency (ER) | payer BC ==
[~2022-02-27] VITALS: Ht 182.9 cm; Wt 104.5 kg
[2022-02-27 03:48] VITALS: BP 141/94
== END 2022-02-27 05:48 | disposition left against medical advice (07) ==
LOC: M ED 03:48
DX: Z53.21 Procedure and treatment not carried out due to patient leaving prior to being seen by health care provider (principal)

== ENCOUNTER → 2022-03-10 | Outpatient (CLI) | payer BC | LOC: M RAD 12:55 | PROVIDERS: ATTEND Physician Assistant | DX: S62.623A Displaced fracture of middle phalanx of left middle finger, initial encounter for closed fracture (principal) ==

== ENCOUNTER → 2022-05-12 | Outpatient (REF) | payer BC | LOC: M LAB REF 16:14 | PROVIDERS: ATTEND Physician Assistant Medical | DX: J02.9 Acute pharyngitis, unspecified (principal) ==

== ENCOUNTER → 2022-05-25 | Outpatient (REF) | payer BC | LOC: M LAB REF 21:43 | PROVIDERS: ATTEND Physician Assistant | DX: J02.9 Acute pharyngitis, unspecified (principal) ==

== ENCOUNTER → 2023-03-12 | Outpatient (REF) | payer BC ==
[~2023-03-12] MED LIST changes: +LORA-1041; -LORA-674; +LORA1TAB23 PO; -LORA1TAB4 PO
== END ==
LOC: M LAB REF 16:10
PROVIDERS: ATTEND Physician Assistant
DX: J02.9 Acute pharyngitis, unspecified (principal)

== ENCOUNTER → 2023-03-12 | Outpatient (REF) | payer BC | LOC: M LAB REF 16:20 | PROVIDERS: ATTEND Physician Assistant | DX: J02.9 Acute pharyngitis, unspecified (principal) ==

== ENCOUNTER → 2023-07-12 | Outpatient (REF) | payer BC ==
[2023-07-12 19:37] LABS: ALBUMIN 3.7 G/DL (3.2-5.2); ALKALINE PHOSPHATASE 84 U/L (46-116); ALT/SGPT 49 U/L (7.0-40); AST/SGOT 25 U/L (<34); BILIRUBIN,TOTAL 0.5 MG/DL (0.3-1.2); BLOOD UREA NITROGEN 15 MG/DL (9-23); CARBON DIOXIDE LEVEL 30 MMOL/L (20-31); CHLORIDE LEVEL 103 MMOL/L (98-107); CHOLESTEROL LEVEL 201 MG/DL (<200); CHOLESTEROL RISK RATIO 6.74 (<5); CREATININE FOR GFR 1.01 MG/DL (0.70-1.30); GLOMERULAR FILTRATION RATE > 60.0 (>60); GLUCOSE, FASTING 99 MG/DL (60-100); HDL CHOLESTEROL 29.8 MG/DL (>40); LDL CHOLESTEROL 135.2 MG/DL (<100); NON-HDL-C 171.2 MG/DL; POTASSIUM SERUM 5.5 MMOL/L (3.5-5.1); SODIUM LEVEL 136 MMOL/L (136-145); TOTAL PROTEIN 6.9 G/DL (5.7-8.2); TRIGLYCERIDES LEVEL 180 MG/DL (<150)
== END ==
LOC: M LAB REF 16:44
PROVIDERS: ATTEND Physician Assistant
DX: E78.5 Hyperlipidemia, unspecified (principal)

== ENCOUNTER → 2023-09-29 | Outpatient (REF) | payer OTHER | LOC: M LAB REF 19:35 | PROVIDERS: ATTEND Physician Assistant Medical | DX: B34.9 Viral infection, unspecified (principal) ==

== ENCOUNTER → 2024-04-11 | Outpatient (REF) | payer OTHER ==
[2024-04-11 17:04] LABS: APPEARANCE, URINE CLEAR (CLEAR); BACTERIA, URINE AUTO NEGATIVE (NEGATIVE); BILIRUBIN, URINE AUTO NEGATIVE (NEGATIVE); BLOOD, URINE BLOOD NEGATIVE (NEGATIVE); COLOR, URINE YELLOW (YELLOW); GLUCOSE, URINE (UA) AUTO NEGATIVE (NEGATIVE); KETONE, URINE AUTO NEGATIVE (NEGATIVE); LEUKOCYTE ESTERASE, URINE AUTO NEGATIVE (NEGATIVE); MUCUS, URINE SMALL (NEGATIVE); NITRITE, URINE AUTO NEGATIVE (NEGATIVE); PROTEIN, URINE AUTO NEGATIVE (NEGATIVE); RBC, URINE AUTO 3 /HPF (0-3); SQUAMOUS EPITHELIAL CELL UR AU 0 /HPF (0-6); UROBILINOGEN, URINE AUTO 0.2 mg/dL (0.0-2.0); WBC, URINE AUTO 1 /HPF (0-3)
[2024-04-11 18:16] LABS: Trichomonas vaginalis (AMP) NOT DETECTED (NEGATIVE)
[2024-04-11 18:41] LABS: GC DNA AMPLIFICATION NEGATIVE (NEGATIVE)
== END ==
LOC: M LAB REF 15:27
PROVIDERS: ATTEND Physician Assistant
DX: Z11.3 Encounter for screening for infections with a predominantly sexual mode of transmission (principal)

== ENCOUNTER → 2024-10-24 | Outpatient (REF) | payer OTHER ==
[~2024-10-24] MED LIST changes: -ACE65ERTAB PO; +ACET-1593 PO; -IBUP-1022 PO; +IBUP600T42 PO
[2024-10-24 19:14] LABS: CALCIUM LEVEL 9.1 MG/DL (8.5-10.1); CARBON DIOXIDE LEVEL 28.0 MMOL/L (20-31); CHLORIDE LEVEL 102.0 MMOL/L (98-107); CHOLESTEROL LEVEL 162.0 MG/DL (<200); CHOLESTEROL RISK RATIO 4.48 (<5); CREATININE FOR GFR 1.16 MG/DL (0.70-1.30); GLOMERULAR FILTRATION RATE 83.7 (>60); LDL CHOLESTEROL 81.7 MG/DL (<100); MAGNESIUM LEVEL 1.8 MG/DL (1.8-2.4); NON-HDL-C 125.9 MG/DL; POTASSIUM SERUM 5.5 MMOL/L (3.5-5.1); SODIUM LEVEL 138.0 MMOL/L (136-145); TRIGLYCERIDES LEVEL 221.0 MG/DL (<150); VITAMIN B12 LEVEL 493.0 PG/ML (211-911)
== END ==
LOC: M LAB REF 17:26
PROVIDERS: ATTEND Physician Assistant
DX: R20.2 Paresthesia of skin (principal); E78.5 Hyperlipidemia, unspecified

== ENCOUNTER 2024-11-19 20:07 | Emergency (ER) | payer OTHER, SELFPAY ==
[2024-11-19 20:25] VITALS: TEMP 99.5
[2024-11-19 21:45] VITALS: BP 127/72; O2SAT 99
[2024-11-19] MEDS: OXYCODONE/APAP 5MG/325MG(HOME DOSE PACK) PO ONE (22:10)
[2024-11-19] MEDS ORDERED: PERC5TAB12 PO (22:13)
[2024-11-19] MEDS ORDERED: MIRA3350 PO (22:13)
== END 2024-11-19 22:35 | disposition home or self-care (01) ==
LOC: M ED 20:07
DX: S86.812A Strain of other muscle(s) and tendon(s) at lower leg level, left leg, initial encounter (principal); X50.0XXA Overexertion from strenuous movement or load, initial encounter; Y93.67 Activity, basketball; Y92.9 Unspecified place or not applicable; Y99.9 Unspecified external cause status; F41.9 Anxiety disorder, unspecified; Z88.8 Allergy status to other drugs, medicaments and biological substances; Z79.899 Other long term (current) drug therapy

== ENCOUNTER → 2024-11-24 | Outpatient (CLI) | payer SELFPAY ==
[~2024-11-24] MED LIST changes: +ATOR1TAB21 PO; +MIRA3350 PO; +OXYC1TAB23 PO; +PERC5TAB12 PO
== END ==
LOC: M RAD 07:00
PROVIDERS: ATTEND Orthopaedic Surgery Hand Surgery
DX: M25.562 Pain in left knee (principal); S83.005A Unspecified dislocation of left patella, initial encounter; X58.XXXA Exposure to other specified factors, initial encounter; Y92.9 Unspecified place or not applicable; Y93.9 Activity, unspecified; Y99.9 Unspecified external cause status; M25.462 Effusion, left knee; M79.89 Other specified soft tissue disorders; S86.212A Strain of muscle(s) and tendon(s) of anterior muscle group at lower leg level, left leg, initial encounter

== ENCOUNTER 2024-11-26 10:13 | Day surgery (SDC) | payer SELFPAY ==
[~2024-11-26] VITALS: Ht 180.3 cm; Wt 104.5 kg
[2024-11-26] MEDS: LR 1,000 ML IV SCH (09:55)
[2024-11-26] MEDS ORDERED: dexAMETHasone 4 MG/ML 1 ML VIAL As Ordered ONE (11:00)
[2024-11-26] MEDS ORDERED: LIDOCAINE 2% 100 MG/5 ML SDV (FOR ANES.) As Ordered ONE (11:00)
[2024-11-26] MEDS ORDERED: MIDAZOLAM INJ 2 MG/2 ML VIAL As Ordered ONE (11:01)
[2024-11-26] MEDS: ceFAZolin SOD 2 GM IV ONCE IV ONE (11:50)
[2024-11-26] MEDS: MIDAZOLAM INJ 2 MG/2 ML VIAL IV PRN (11:53)
[2024-11-26] MEDS: dexAMETHasone 10 MG/1 ML VIAL PRES.FREE PN ONE (11:55)
[2024-11-26] MEDS: ROPIvacaine 0.5% 30ML VIAL PN ONE (11:55)
[2024-11-26] MEDS ORDERED: dexmedeTOMIDine (4 MCG/ML) 200 MCG/50 ML BTL As Ordered ONE (12:21)
[2024-11-26] MEDS ORDERED: ROCURONIUM BROMIDE 50MG/5ML VIAL As Ordered ONE (12:21)
[2024-11-26] MEDS: TRANEXAMIC ACID 100 MG/ML 10ML VIAL As Ordered ONE (12:35)
[2024-11-26] MEDS ORDERED: ACETAMINOPHEN 1000MG/100ML IV BAG As Ordered ONE (13:03)
[2024-11-26] MEDS ORDERED: SUGAMMADEX SODIUM 200 MG/2 ML VIAL As Ordered ONE (13:03)
[2024-11-26] MEDS ORDERED: SUGAMMADEX SODIUM 500 MG/5 ML VIAL As Ordered ONE (13:04)
[2024-11-26] MEDS ORDERED: MEPERIDINE 25 MG/ML 1 ML VIAL IV PRN (13:45)
[2024-11-26] MEDS: ONDANSETRON 4MG/2ML VIAL IV PRN (14:20)
[2024-11-26 15:05] VITALS: BP 131/70; TEMP 97.9; O2SAT 99
[2024-11-28] MEDS ORDERED: METH-1164 PO (10:16)
== END 2024-11-26 15:18 | disposition home or self-care (01) ==
LOC: M SDC 10:13
PROVIDERS: ATTEND Student in an Organized Health Care Education/Training Program
DX: S76.112A Strain of left quadriceps muscle, fascia and tendon, initial encounter (principal); X58.XXXA Exposure to other specified factors, initial encounter; Y93.67 Activity, basketball; Y92.9 Unspecified place or not applicable; E78.00 Pure hypercholesterolemia, unspecified; K21.9 Gastro-esophageal reflux disease without esophagitis; Z79.899 Other long term (current) drug therapy; Z90.89 Acquired absence of other organs; Z88.8 Allergy status to other drugs, medicaments and biological substances
CPT/HCPCS: 27380; 76000; C1713; J0131; J0688; J1100; J2250; J2405; J2795; J3010

== ENCOUNTER 2024-12-30 11:58 | Outpatient (RCR) | payer SELFPAY ==
[~2024-12-30 11:58] MED LIST changes: +ACET-1387 PO; -ACET-1593 PO; +METH-1164 PO
== END 2025-01-04 ==
LOC: M PT 11:58
PROVIDERS: ATTEND Physician Assistant
DX: Z98.890 Other specified postprocedural states (principal); Z47.89 Encounter for other orthopedic aftercare

== ENCOUNTER → 2025-01-05 | Outpatient (CLI) | payer SELFPAY | LOC: M RAD 11:51 | PROVIDERS: ATTEND Physician Assistant | DX: S86.812D Strain of other muscle(s) and tendon(s) at lower leg level, left leg, subsequent encounter (principal); W18.30XD Fall on same level, unspecified, subsequent encounter ==

== ENCOUNTER 2025-01-21 09:13 | Outpatient (RCR) | payer SELFPAY | END 2025-02-04 | LOC: M PT 09:13 | PROVIDERS: ATTEND Physician Assistant | DX: Z47.89 Encounter for other orthopedic aftercare (principal) ==

== ENCOUNTER → 2025-01-27 | Outpatient (CLI) | payer SELFPAY | LOC: M SOG 07:32 | PROVIDERS: ATTEND Physician Assistant | DX: Z53.9 Procedure and treatment not carried out, unspecified reason (principal) ==